=== PATIENT | male | born 1940 | race Caucasian/White ===

== ENCOUNTER → 2017-04-19 17:49 | Outpatient (CLI) | payer MEDICARE, OTHER, SELFPAY ==
--- NOTE | 2017-04-19 | IMM_PTH ---
PATIENT: Joaquin CAMERON LOC: EM U#:[id number] AGE/SX: 84/M ROOM: RE04/19/[address]: Dr. Yovanny Dempsey MD : 1940 BED: DIS: SPEC #: [id number] RECD: 04/21/17 10:50 STATUS: BROOKS RENorma #: [id number] JEAN: 04/19/17 00:[address]: Yovanny Dempsey DEPT: IMMUNOHISTOCHEMISTRY RECD BY: Mónica Nagel ENTERED: 04/21/17 10:51 SP TYPE: IMMUNO OTHR DR: Dr. Fredis Moon MD Tissues: E - PROSTATE LEFT Procedures: P40 (add) 34BE12 (initial) PHYSICIAN & INSTITUTION [place] [address] SPECIMEN INFORMATION: Tissue Source: E - Left prostate, mid, core biopsy Clinical Info: Elevated PSA Specimen Number: [id number] CPT code: 07459, 59441 METHODOLOGY: Deparaffinized sections of prefer/formalin-fixed tissue or PAP/DQ stained slides are incubated with monoclonal/polyclonal antibodies/oligonucleotide probes. Localization is made via biotin free immunoperoxidase method. Appropriate controls are performed and reacted as expected. Results on target cell population are indicated in the following table: RESULTS: ANTIBODY / CLONE RESULT Block E P40 (BC28) negative 34BE12 (34BE12) negative These tests were developed and their performance characteristics determined by [facility]. They may not have been cleared or approved by the U.S. Food and Drug Administration. The FDA has determined that such clearance or approval is not necessary. INTERPRETATION: E. Left prostate, mid, core biopsy: Adenocarcinoma. SJ:julia 04/21/17
--- NOTE | 2017-04-19 16:30 | PROSBIL_PTH ---
PATIENT: Joaquin CAMERON LOC: EM U#:[id number] AGE/SX: 84/M ROOM: RE04/19/[address]: Dr. Yovanny Dempsey MD : 1940 BED: DIS: SPEC #: [id number] RECD: 04/19/17 17:48 STATUS: BROOKS GIOVANNY #: [id number] JEAN: 04/19/17 16:[address]: Yovanny Dempsey DEPT: SURGICAL PATHOLOGY RECD BY: Theo Major ENTERED: 04/20/17 07:00 SP TYPE: PROST BX GILL DR: Dr. Fredis Moon MD Tissues: A - PROSTATE RIGHT B - PROSTATE RIGHT C - PROSTATE RIGHT D - PROSTATE LEFT E - PROSTATE LEFT F - PROSTATE LEFT Procedures: PROSTATE BX HEADER OPERATION: Prostate biopsy PRE-OP DIAGNOSIS: Elevated PSA TISSUE SUBMITTED: A - Right apex, B - Right mid, C - Right base, D - Left apex, E - Left mid, F - Left base MICROSCOPIC DIAGNOSIS A. Right prostate, apex, core biopsy: Scant minute fragment of prostatic stromal tissue, negative for malignancy. B. Right prostate, mid, core biopsy: Prostatic tissue, negative for malignancy. Focal mild chronic inflammation. C. Right prostate, base, core biopsy: Prostatic tissue, negative for malignancy.. D. Left prostate, apex, core biopsy: Predominantly prostatic stromal tissue, negative for malignancy. E. Left prostate, mid, core biopsy: Prostatic adenocarcinoma: Oxford grade: 3+4=7 Number of cores involved: 2 out of 2 Proportion of tissue involved: 20% Perineural invasion: Not identified. Greatest tumor length: 0.3 cm See comment. F. Left prostate, base, core biopsy: Prostatic adenocarcinoma: Oxford grade: 3+4=7 Number of cores involved: 1 out of 1 Proportion of tissue involved: ~60% Perineural invasion: Not identified. Greatest tumor length: 0.5 cm Focal atrophy. SJ:julia 04/21/17 COMMENT E. Immunohistochemistry ([id number]) supports the above diagnosis. MICROSCOPIC DESCRIPTION Slides are reviewed. GROSS DESCRIPTION A - Received is one container designated prostate, right apex. The specimen consists of a minute fragment of valdes soft tissue is noted measuring <0.1 cm in greatest dimension. The entire specimen is submitted in one cassette. It may not survive processing. B - Received is one container designated prostate, right mid. The specimen consists of one elongated fragment of light valdes-white soft tissue measuring 0.7 cm in length and 0.1 cm in diameter. The specimen is totally submitted in one cassette. C - Received is one container designated prostate, right base. The specimen consists of two elongated fragments of light valdes-white soft tissue measuring 0.7 and 1 cm in length and 0.1 cm in diameter. The specimen is totally submitted in one cassette. D - Received is one container designated prostate, left apex. The specimen consists of one elongated fragment of light valdes-white soft tissue measuring 0.2 cm in length and 0.1 cm in diameter. The specimen is totally submitted in one cassette. E - Received is one container designated prostate, left mid. The specimen consists of two elongated fragments of light valdes-white soft tissue each measuring 0.5 cm in length and 0.1 cm in diameter. The specimen is totally submitted in one cassette. F - Received is one container designated prostate, left base. The specimen consists of one elongated fragment of light valdes-white soft tissue measuring 1 cm in length and 0.1 cm in diameter. The specimen is totally submitted in one cassette. / SJ:rg 04/20/17 TC:0 CPT: G0146 ADDENDUM ADDENDUM ADDENDUM ADDENDUM ADDENDUM ADDENDUM ADDENDUM ADDENDUM 05/21/2017 12:17 ADDENDUM 05/21/2017 12:17 ADDENDUM 05/21/2017 12:17 ADDENDUM 05/21/2017 12:17 ADDENDUM 05/21/2017 12:17 An order for Oncotype testing was received from Dr. Dempsey. This necessitated case review, block and slide selection by pathologist at [facility]. Prostate Cancer Recurrence Score = 52 Results of the complete Oncotype testing ([employer] report) are viewable in EMR under: Reports - Pathology - Lab Pathology Report, Scanned.
== END ==
PROVIDERS: Family Provider Family Medicine Geriatric Medicine; PCP Family Medicine Geriatric Medicine; Visit Provider Urology
DX: R97.20 Elevated prostate specific antigen [PSA] (principal)
CPT/HCPCS: 88305; 88341; 88342; G0416

== ENCOUNTER → 2017-04-29 15:10 | Outpatient (CLI) | payer MEDICARE, OTHER, SELFPAY ==
[2017-04-29 17:26] LABS: Absolute Lymphocyte Count 1.58 X10^3/ul (0.83-4.51); Absolute Neutrophil Count 3.9 X10^3/uL (2.0-7.7); Basophil# 0.02 X10^3/uL; Basophil% 0.3 % (0-1); Eosinophil# 0.14 X10^3/uL; Eosinophils% 2.2 % (0-5); Hematocrit 43.1 % (40-54); Hemoglobin 14.1 g/dl (13.0-16.5); Lymphocyte # 1.58 X10^3/ul (4.0); Mean Corp Hgb Conc 32.7 g/gl (32-36); Mean Corpuscular Hgb 29.6 pg (27.0-32.0); Mean Corpuscular Volume 90.5 fL (80-94); Mean Platelet Vol. 9.8 fl (6.2-12.0); Monocyte# 0.69 X10^3/uL; Monocyte% 10.9 % (0-10); Neutrophil # 3.89 X10^3/uL (2.7-7.7); Neutrophil % 61.4 % (47-70); Platelet Count 173 K/mm3 (150-450); RBC Distribution Width CV 13.3 % (11.6-14.6); RBC Distribution Width SD 43.7 fl (35.1-43.9); Red Blood Count 4.76 M/mm3 (4.6-6.2); White Blood Count 6.3 K/mm3 (4.4-11.0)
[2017-04-29 17:44] LABS: POSITIVE COUNT NO; POSITIVE DIFFERENTIAL NO; POSITIVE MORPHOLOGY NO
[2017-04-29 18:08] LABS: AST(SGOT) 25 U/L (15-37); Alanine Aminotransfer ALT/SGPT 36 U/L (16-61); Albumin, Serum 3.6 g/dL (3.2-5.0); Alkaline Phosphatase 83 U/L (45-117); Anion Gap 8 (5-15); BUN 29 mg/dL (7-18); BUN/Creat Ratio 25.2 RATIO (10-20); Calcium,Total 8.7 mg/dL (8.5-10.1); Chloride 104 mmol/L (98-107); Cholesterol 105 mg/dL (200); Creatinine, Serum 1.15 mg/dL (0.70-1.30); EST Glomerular Filtration Rate 66 mL/min (>60); Est Glom Filt Rate - Afr Amer 80 mL/min (>60); Globulin 3.5 g/dL (2.2-4.2); Glucose 155 mg/dL (74-106); High Density Lipoprotein 47 mg/dL; Potassium 4.1 mmol/L (3.5-5.1); Protein, Total 7.1 g/dL (6.4-8.2); Sodium Level 141 mmol/L (136-145); Thyroid Stim Hormone (TSH) 1.95 uIU/mL (0.358-3.74); Triglycerides 206 mg/dL; Very Low Density Lipoprotein 41 mg/dL (5-40)
[2017-05-04 09:35] LABS: Hemoglobin A1c 7.5 % (4.2-6.3)
== END ==
PROVIDERS: Family Provider Family Medicine Geriatric Medicine; PCP Family Medicine Geriatric Medicine; Visit Provider Family Medicine Geriatric Medicine
DX: E11.9 Type 2 diabetes mellitus without complications (principal); E78.4 Other hyperlipidemia; I10 Essential (primary) hypertension
CPT/HCPCS: 36415; 80053; 80061; 83036; 84443; 85025

== ENCOUNTER → 2017-05-06 07:25 | Outpatient (CLI) | payer MEDICARE, OTHER, SELFPAY ==
--- NOTE | 2017-05-06 07:31 | NM_ITS ---
CLINICAL: 77-year-old male with 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 WHOLE BODY 99m Tc MDP RADIONUCLIDE BONE SCINTIGRAPHY COMPARISON: None available FINDINGS: Following the intravenous administration of 27.0 mCi of 99m Tc MDP, whole body bone images reveal: 1. There is an increase in radiopharmaceutical concentration identified in the acromioclavicular and sternoclavicular compartments of both shoulders, fourth-fifth lumbar vertebra posteriorly on the right, seventh thoracic vertebra posteriorly on the left, bilateral knee articulations, the left wrist. 2. The remaining skeletal structures are scintigraphically unremarkable with normal-appearing renal images and urinary bladder activity identified. Asymmetric increased uptake is demonstrated in the greater trochanteric aspect of the left proximal femur most consistent with trochanteric bursitis and/or periostitis. NM/Bone Scan Whole Body IMPRESSION: 1. The increase in radiopharmaceutical concentration identified in the bilateral shoulders, thoracic and lumbar spine, knees bilaterally and left wrist is most consistent with degenerative arthritis. 2. There is no definitive scintigraphic evidence of diffuse axial skeletal metastatic disease on the current examination. Electronically Signed: Theo Santiago DO at 10:52 EDT Tel , Service support ,
== END ==
PROVIDERS: Family Provider Family Medicine Geriatric Medicine; PCP Family Medicine Geriatric Medicine; Visit Provider Urology
DX: C61 Malignant neoplasm of prostate (principal)
CPT/HCPCS: 78306

== ENCOUNTER → 2017-05-11 06:58 | Outpatient (CLI) | payer MEDICARE, OTHER, SELFPAY ==
--- NOTE | 2017-05-11 07:00 | CT_ITS ---
STUDY: CT ABDOMEN AND PELVIS WITH CONTRAST REASON FOR EXAM: Male, 77 years old. New diagnosis of prostate cancer. RADIATION DOSAGE (If Supplied By Facility): CTDIvol = ( 15.42 ) mGy, DLP = ( 879.12 ) mGycm TECHNIQUE: Transaxial images were obtained from the dome of the diaphragm to the symphysis pubis without oral contrast. 100 ml of Isovue 300 contrast was administered. Sagittal and coronal images were reconstructed. Individualized dose optimization techniques were used for this CT. COMPARISON: None. FINDINGS: The visualized lung bases are unremarkable. Coronary artery calcification. Normal liver. The patient is status post cholecystectomy. Normal spleen. Normal pancreas. Normal bilateral adrenal glands. 1.4 cm cyst in the upper pole of the right kidney. Focal calcification in the lateral upper pole of the left kidney. There is a small hiatal hernia. Normal small intestine. There are scattered colonic diverticula consistent with diverticulosis. The appendix is visualized and appears normal. There is diffuse atherosclerotic calcification of the abdominal aorta, without a demonstrated aneurysm. Normal inferior vena cava. There is borderline retroperitoneal lymphadenopathy with enlarged nodes no greater than 10mm in the short axis diameter. Normal urinary bladder. The prostate measures 3.6 cm x 5 cm. This causes indentation at the bladder base. Central prostatic calcifications. This also evidence of calcification of the right seminal vesicle. Normal abdominal wall. There are diffuse degenerative changes of the visualized lumbar spine. CT/Abdomen/Pelvis W IV Cont ONLY IMPRESSION: Right renal cyst. Focal calcification the upper pole of the left kidney. Mild enlargement of the prostate gland. Electronically Signed: Fareed Beckham MD at 10:02 EDT Tel [phone], Service support ,
--- NOTE | 2017-05-11 11:24 | TISS_PTH ---
PATIENT: Joaquin CAMERON LOC: UT U#:[id number] AGE/SX: 84/M ROOM: RE05/11/[address]: Dr. Yovanny Dempsey MD : 1940 BED: DIS: SPEC #: [id number] RECD: 05/11/17 15:48 STATUS: BROOKS RENorma #: [id number] JEAN: 05/11/17 11:[address]: Fredis Moon Chi DEPT: SURGICAL PATHOLOGY RECD BY: Temi Montoya ENTERED: 05/12/17 11:09 SP TYPE: Tissue Bx GILL DR: Dr. Yovanny Dempsey MD Tissues: Skin of forehead Procedures: Surgery Specimen Level IV Comments: @ Ordering doctor for SUIV edited from to @ by ADEN at 05/13/17 0831 @ Submitting doctor edited from to @ by ADEN at 05/13/17 0831 HEADER OPERATION: Not noted PRE-OP DIAGNOSIS: L81.9 TISSUE SUBMITTED: Forehead MICROSCOPIC DIAGNOSIS Forehead lesion, shave biopsy: Seborrheic keratosis. Actinic keratosis and solar elastosis. SJ:julia 05/13/17 MICROSCOPIC DESCRIPTION Slides are reviewed. GROSS DESCRIPTION Received is one container labeled with the patient's name and not further designated. The specimen consists of a light valdes shaved biopsy of skin measuring 0.7 x 0.5 x 0.1 cm. The specimen is inked, bisected and totally submitted in one cassette. / AM:julia 05/12/17 TC:1 CPT: 82546
== END ==
PROVIDERS: Family Provider Family Medicine Geriatric Medicine; PCP Family Medicine Geriatric Medicine; Visit Provider Urology
DX: C61 Malignant neoplasm of prostate (principal); E11.9 Type 2 diabetes mellitus without complications; L82.1 Other seborrheic keratosis; L57.0 Actinic keratosis
CPT/HCPCS: 74177; 88305; Q9967

== ENCOUNTER → 2017-05-17 12:06 | Outpatient (CLI) | payer MEDICARE, OTHER, SELFPAY ==
[2017-05-21 12:08] LABS: Lyme IgG P18 Ab Absent (.); Lyme IgG P23 Ab Absent (.); Lyme IgG P28 Ab Absent (.); Lyme IgG P30 Ab Absent (.); Lyme IgG P39 Ab Absent (.); Lyme IgG P41 Ab Absent (.); Lyme IgG P45 Ab Absent (.); Lyme IgG P58 Ab Absent (.); Lyme IgG P66 Ab Absent (.); Lyme IgG P93 Ab Absent (.); Lyme IgM P23 Ab Absent (.); Lyme IgM P39 Ab Absent (.); Lyme IgM P41 Ab Absent (.)
[2017-05-21 13:00] LABS: Lyme IgG WB Interpretation Negative (.); Lyme IgM WB Interpretation Negative (.)
== END ==
PROVIDERS: Family Provider Family Medicine Geriatric Medicine; PCP Family Medicine Geriatric Medicine; Visit Provider Family Medicine Geriatric Medicine
DX: A69.23 Arthritis due to Lyme disease (principal)
CPT/HCPCS: 36415; 86617

== ENCOUNTER 2017-07-14 05:47 | Inpatient (IN) | payer MEDICARE, OTHER, SELFPAY ==
[2017-07-01 14:50] VITALS: BP 127/58; PULSE 59; RESP 16; TEMP 36.3; O2SAT 96; BMI 28.8
--- NOTE | 2017-07-01 14:59 | SDCEKG_ITS ---
Test Reason : Blood Pressure : / mmHG Vent. Rate : 056 BPM Atrial Rate : 056 BPM P-R Int : 194 ms QRS Dur : 102 ms QT Int : 420 ms P-R-T Axes : -04 -31 017 degrees QTc Int : 405 ms Sinus bradycardia Left axis deviation Septal infarct , age undetermined Abnormal ECG Confirmed by NORMAN SCHMITT, GRICELDA ([id number]), editor news RAO GIL ([id number]) on 07/02/2017 1:50:00 PM Referred By: Yovanny Dempsey Confirmed By:GRICELDA AUSTIN MD
[2017-07-01 15:42] LABS: PSA,Total- Diagnostic 2.71 ng/mL (0.0-4.0)
[2017-07-01 15:54] LABS: International Normalized Ratio 1.1; Partial Thromboplast Time 33.2 Seconds (24.1-36.2)
[2017-07-14] VITALS (12 sets, daily range): BP systolic 98–171; BP diastolic 51–82; PULSE 67–103; RESP 16–18; TEMP 36.1–37; O2SAT 91–99; BMI 28.8
--- NOTE | 2017-07-14 | PROST_PTH ---
PATIENT: Joaquin CAMERON LOC: MS2 U#:[id number] AGE/SX: 77/M [place] [facility] [id number] RE07/14/[address]: Dr. Yovanny Dempsey MD : 1940 BED: 1 DIS: 07/15/2017 SPEC #: [id number] RECD: 07/14/17 15:37 STATUS: BROOKS RENorma #: [id number] JEAN: 07/14/17 00:[address]: Yovanny Dempsey DEPT: SURGICAL PATHOLOGY RECD BY: Damián Mcdonald ENTERED: 07/15/17 08:12 SP TYPE: PROSTATE OTHR DR: Dr. Fredis Moon MD Tissues: A - Prostate, NOS B - Omentum, NOS Procedures: Surgery Specimen Level IV Surgery Specimen Level HEADER OPERATION: Laparoscopic robotic assisted radical prostatectomy PRE-OP DIAGNOSIS: Prostate cancer, elevated PSA TISSUE SUBMITTED: A ? Prostate, B ? Fat over prostate MICROSCOPIC DIAGNOSIS A. Prostate, radical prostatectomy: Prostatic adenocarcinoma. See cancer summary below. B. Fat over prostate: Mature adipose tissue, negative for carcinoma. PROSTATE CANCER (RADICAL) SUMMARY: Procedure ? radical prostatectomy Prostate size ? 4.5 cm transversely, 4 cm anterior-posteriorly and 4 cm craniocaudally Prostate weight ? 52 gm Lymph node sampling ? no lymph nodes present Histologic type ? adenocarcinoma (acinar) Histologic grade (Atwood Pattern): Primary pattern ? grade 4 Secondary pattern ? grade 3 Tertiary pattern ? not applicable Total Atwood score - 7 Tumor Quantitation: Proportion (%) of prostate involved by tumor - ~10-15% Extraprostatic extension ? not identified Seminal vesicle invasion ? not identified Margins ? apical margin focally involved by tumor, a minute focus (right lobe) Treatment effect on carcinoma ? not identified Lymph-Vascular invasion - not identified Perineural invasion ? present, focal Regional lymph nodes ? no nodes submitted or found Distant metastasis ? not applicable Additional pathologic findings ? chronic inflammation - Benign prostatic hyperplasia. - Right seminal vesicle shows focal calcification and left seminal vesicle with focal cystic changes. Ancillary studies ? See IHC ([id number]) report. PATHOLOGIC STAGE: pT2c pNx Mx The above summary is in compliance with [employer] (CAP) Cancer Protocols Checklist and [place] Joint Committee on Cancer (AJCC), Staging Manual, 8th Ed. SJ:rg 07/20/17 COMMENT A. The tumor in the right lobe is present in blocks #3 and 7, in the apical portion of the prostate and measures 0.6 x 0.2 cm in greatest dimension (measured microscopically). The tumor in the left lobe is present in blocks #8, 10, 12, 14 and 16 and measures 1.2 x 1 cm in greatest dimension and involves apical, mid portion and basal portion of the prostate. Immunohistochemistry ([id number]) supports the diagnosis of a minute focus of adenocarcinoma in the apical margin of the prostate. Please make reference to previous specimen ([id number]), left prostate, mid and left prostate, base with diagnosis of prostatic adenocarcinoma. Case has been reviewed in consultation with Dr. Rasheed who concurs with the above diagnosis. IDC:AM MICROSCOPIC DESCRIPTION Slides are reviewed. GROSS DESCRIPTION A - Received in fixative is one container labeled with the patient's name and designated prostate. The specimen consists of a radical prostatectomy specimen consisting of prostate and attached bilateral seminal vesicles and vas deferens. The prostate and attached seminal vesicles weigh 52 gm. The prostate measures 4.5 cm transversely, 4 cm anteroposteriorly and 4 cm craniocaudally. The right seminal vesicle measures 3 x 2 x 1 cm and right vas deferens measures 3.5 cm in length and 0.5 cm in diameter. The left seminal vesicle measures 3 x 1.5 x 1.5 cm and left vas deferens measures 3 cm in length and 0.5 cm in diameter. The prostate is inked as follows: anterior surface ? yellow, posterior surface ? black, right lateral surface ? blue, left lateral surface ? green. The seminal vesicles and vas deferens are inked as follows: posterior surface, right and left seminal vesicles and vas deferens ? black, anterior surface, right seminal vesicle and vas deferens ? blue, anterior surface, left seminal vesicle and vas deferens ? green. Sections of the prostate do not reveal any obvious mass lesion. Core Extruder sections are submitted in 18 cassettes as follows: 1 - right seminal vesicle and vas deferens, 2 ? left seminal vesicle and vas deferens, 3 ? apical (urethral) margin, enface, 4 & 5 ? bladder base margin, enface, 6-10 ? apical portion of prostate, 1114 ? middle portion of prostate, 15-18 ? basal portion of the prostate (cassettes 17 & 18 contain the most basal portion of the prostate. Sections will be submitted after infusion cycle. B - Received in fixative is one container labeled with the patient's name and designated fat over prostate. The specimen consists of a piece of yellow adipose tissue measuring 9 x 2 x 0.5 cm. No mass lesion is identified. Core Extruder sections are submitted in one cassette. / SJ:julia 07/15/17 TC:0 CPT: 69921, 79438
--- NOTE | 2017-07-14 | IMM_PTH ---
PATIENT: Joaquin CAMERON LOC: MS2 U#:[id number] AGE/SX: 77/M ROOM: [facility] [id number] RE07/14/[address]: Dr. Yovanny Dempsey MD : 1940 BED: 1 DIS: 07/15/2017 SPEC #: [id number] RECD: 07/20/17 11:26 STATUS: BROOKS REQ #: [id number] JEAN: 07/14/17 00:[address]: Yovanny Dempsey DEPT: IMMUNOHISTOCHEMISTRY RECD BY: Mónica Nagel ENTERED: 07/20/17 11:27 SP TYPE: IMMUNO OTHR DR: Dr. Fredis Moon MD Tissues: A - Prostate, NOS Procedures: CK8 (add) P40 (add) 34BE12 (initial) PHYSICIAN & INSTITUTION [place] [address] SPECIMEN INFORMATION: Tissue Source: A - Prostate Clinical Info: Prostate cancer, elevated PSA Specimen Number: [id number] CPT code: 55066, 93601 x2 METHODOLOGY: Deparaffinized sections of prefer/formalin-fixed tissue or PAP/DQ stained slides are incubated with monoclonal/polyclonal antibodies/oligonucleotide probes. Localization is made via biotin free immunoperoxidase method. Appropriate controls are performed and reacted as expected. Results on target cell population are indicated in the following table: RESULTS: ANTIBODY / CLONE RESULT Block A3 P40 (BC28) negative 34BE12 (34BE12) negative CK8 ([id number]) positive These tests were developed and their performance characteristics determined by [facility]. They may not have been cleared or approved by the U.S. Food and Drug Administration. The FDA has determined that such clearance or approval is not necessary. INTERPRETATION: A. Prostate, radical prostatectomy: A minute focus of adenocarcinoma (block A3). This case has been reviewed in consultation with Dr. Rasheed who concurs with the above diagnosis. SJ:julia 07/22/17
[2017-07-14 06:12] LABS: Bedside Glucose 98 mg/dL (70-110)
[2017-07-14] MEDS: Cefazolin 2 GM in 0.9% Normal Saline 100 ML IV (07:28)
[2017-07-14] MEDS: Ondansetron 4 MG/2 ML Vial (11:10)
[2017-07-14] MEDS: Bupivacaine Mpf 0.5% 30 ML VIAL (11:30)
--- NOTE | 2017-07-14 11:32 | PCM.OPRPT ---
Report of Operation Date of Procedure: 07/14/17 Pre-Operative Diagnosis: Prostate cancer Post-Operative Diagnosis: Same Surgery/Procedure Performed:: Robotic assisted laparoscopic radical prostatectomy, EMG monitoring of pelvic nerves and sphincter, suture suspension of the urethra to prevent incontinence. Description of Surgical Findings:: 77-year-old male with prostate cancer is elected to undergo rightRadical prostatectomy for curative intent. He was taken back to the operating room timeout was performed, he was given antibiotics, SCDs were in place, after anesthesia was induced and intubated we then placed him supine on the table in dorsal lithotomy position for an approach the prostate laparoscopically. He was in dorsal lithotomy position with the legs in stirrups we make sure that he was properly positioned and padded. We then made a incision in the umbilicus and advanced the Veress needle into the peritoneal cavity insufflated the peritoneal cavity with CO2 gas, and then placed my ports, and then docked the robot, then proceeded with the dissection, first I released the sigmoid colon off the lateral wall on the left side, I then was able to retract the sigmoid out of the pelvis, and then dissected out the vas deferens and the right side seminal vesicles and the right side vas deferens on the left side seminal vesicles in the left side, created a space between the rectum and the prostate, I then dropped the bladder created the space of Retzius put the bladder on traction and then inspected the lymph nodes in the left side and the right side there was no large lymph nodes I decided not to do lymph node dissection his risk of lymph node metastasis was fairly low. I then defatted the 5 top of the prostate this was sent off as a specimen, I then incised the endopelvic fascia and the right side endopelvic fascia and the left side and then dissected at the apex in the dorsal vein and then place a stitch in the dorsal vein came back to the bladder and prostate junction dissected between the bladder and prostate came on top of the urethra pulled the urethra and prostate up and then dissected posteriorly between the bladder and the prostate until I reached the seminal vesicles. Then the prostate was placed on lateral traction place clips on the pedicles and use electrocautery and the pedicles identified the neurovascular bundle freed this off the prostate laterally, I then used the EMG monitoring and check the lateral pelvic nerves and these were intact before and after the dissection of the prostate on the right side dissected all the way up to the apex and the right side and went to the left side identified the left pelvic and prostate pedicle and clip in the pedicle 1 of the clips broke off found the major clip and then found the broken pieces all these were taken out and then clipped the pedicle more and then released the neurovascular bundle on the left side all the way up to the apex transected to the dorsal vein complex then dissected all way around the urethra complex to the urethra and the prostate was then free put in Endo Catch bag I then performed suture suspension of the urethra to try to prevent incontinence using of 3-0 Vicryl and also of 30V lock and ran an anastomosis between the bladder neck and the urethra at the anastomosis was completed over a catheter then I re-tacked the bladder back up into the anterior abdominal wall. We then extracted the prostate through the umbilical trocar closed the 10 the variceal trocar with a tense 1012 Dong Waldron stitch patient's anesthetic was reversed we flushed the catheter and is taken back to the PACU in good condition. Type of Anesthesia:: General Drains: garcia - Admit VTE Documentation VTE Present on Admission: No VTE Mechan Device Prophylaxis: SCD's VTE Pharm Prophylaxis ordered?: No Reason prophylaxis not ordered:: Treatment Not Indicated
--- NOTE | 2017-07-14 11:50 | DCINST_ITS ---
Discharge Diet: Light diet - advance as tolerated Discharge Activity: May Not Drive, May not drive while taking narcotic pain medications., May Shower Lifting Restrictions: no lifting. Call your doctor if your incision/area has: Continuous Slow Oozing, Sudden Increased Bleeding, Increased Pain/ Swelling, Increased Redness, Foul Smelling Discharge, Swelling at the incision site Call your doctor if you observe: Fever of 101 or Higher, Inability to have a bowel movement, Uncontrolled pain Suture Line Care: Avoid Pulling/Pushing, Avoid Pinching/Bending Instructions: Discharge Instructions for Radical Prostatectomy Allergies/Adverse Reactions: Allergies adhesive tape Adverse Reaction (Verified 07/01/17 14:18) skin tears Medications to take at Discharge Calcium 600 + Vit D Tablet 600 mg PO BID 02/12/13 Metformin HCl 1,000 mg PO BID 02/12/13 Miconazole Nitrate 1 applicatio NOTE DAILY PRN 02/12/13 Metoprolol(XL)Succ 12.5 mg PO BID 02/13/13 Atorvastatin Calcium [Lipitor] 40 mg PO QHS 07/01/17 Cinnamon Bark [Cinnamon] 1,000 mg PO BID 07/01/17 Dulaglutide [Trulicity] 5 mg SQ SA 07/01/17 Empagliflozin [Jardiance] 25 mg PO DAILY 07/01/17 Famotidine [Pepcid] 40 mg PO DAILY PRN 07/01/17 Oxybutynin Chloride [Ditropan Xl] 5 mg PO DAILY 07/01/17 Sitagliptin Phosphate [Januvia] 100 mg PO DAILY 07/01/17 Ciprofloxacin [Cipro] 500 mg PO BID #20 tab 07/14/17 Docusate Sodium [Colace] 100 mg PO BID #20 cap 07/14/17 Hydrocodone/Acetaminophen [[place] 5-325 Tablet] 1 ea PO Q4H PRN PRN 5 Days #14 tab 07/14/17 The following prescriptions were given: Hydrocodone/Acetaminophen [[place] 5-325 Tablet] 1 ea PO Q4H PRN PRN 5 Days #14 tab PRN Reason: Pain Ciprofloxacin [Cipro] 500 mg PO BID #20 tab Docusate Sodium [Colace] 100 mg PO BID #20 cap Primary Care Physician: Fredis Moon Chi, MD [Primary Care Provider] - Please Follow Up With: Yovanny Dempsey MD When: July 22 at 11 am. Proposed Discharge Date: 07/15/17
[2017-07-14 12:56] LABS: Bedside Glucose 166 mg/dL (70-110)
[2017-07-14] MEDS: Ketorolac 15 MG/ML Vial IV ×2 (14:08→17:56)
[2017-07-14] MEDS: 0.9% Normal Saline 1,000 ML 150 ML IV ×2 (15:38→21:15)
--- NOTE | 2017-07-14 16:23 | CHAPLAIN ---
Type of Pastoral Visit _x__ Initial Visit ___ Follow-up Visit ___ On-call Visit ___ General Patient Visit ___ Spiritual Assessment ___ Family Conference ___ Bereavement ___ Rapid Response ___ Code Blue ___ Other (describe below) Pastoral Care Referral From _x__ Patient _x__ Family ___ Nurse ___ Physician ___ Brass Molder ___ Manager Operating ___ Other (describe below) Sacrament/Intervention _x__ Active listening ___ Anointing ___ Christian ___ Bereavement ___ Communion ___ Nancy exploration ___ ___ Life review _x__ Prayer ___ Reconciliation ___ Sacrament of Sick _x__ Supportive presence ___ Wedding ___ Other (describe below) Pastoral Comments patient and family requested visit from this agricultural equipment sales engineer who is known to them; pt was post op and wanted to talk and receive prayer for recovery;
[2017-07-14 17:10] LABS: Bedside Glucose 202 mg/dL (70-110)
[2017-07-14] MEDS: Calcium Carb/Vitamin D 1 TABLET Tablet PO (17:56)
[2017-07-14] MEDS: metFORMIN HCl 1,000 MG Tablet 1000 MG PO (17:56)
[2017-07-14] MEDS: Metoprolol(XL)Succ 25 MG Tablet 12.5 MG PO (21:14)
[2017-07-14] MEDS: Docusate Sodium 100 MG Capsule 200 MG PO (21:14)
[2017-07-14] MEDS: Ciprofloxacin 500 MG Tablet PO (21:15)
[2017-07-14] MEDS: Atorvastatin Calcium 40 MG Tablet PO (21:15)
[2017-07-15] MEDS: Ketorolac 15 MG/ML Vial IV ×3 (00:50→11:30)
[2017-07-15 03:00] VITALS: BP 109/53; PULSE 70; RESP 16; TEMP 36.6; O2SAT 99
[2017-07-15] MEDS: 0.9% Normal Saline 1,000 ML 150 ML IV (03:58)
[2017-07-15 06:17] LABS: Hematocrit 29.5 % (40-54); Hemoglobin 9.8 g/dl (13.0-16.5); Mean Corp Hgb Conc 33.2 g/gl (32-36); Mean Corpuscular Hgb 29.8 pg (27.0-32.0); Mean Corpuscular Volume 89.7 fL (80-94); Mean Platelet Vol. 9.2 fl (6.2-12.0); Platelet Count 180 K/mm3 (150-450); RBC Distribution Width CV 13.7 % (11.6-14.6); RBC Distribution Width SD 43.2 fl (35.1-43.9); Red Blood Count 3.29 M/mm3 (4.6-6.2); White Blood Count 7.6 K/mm3 (4.4-11.0)
[2017-07-15 06:18] LABS: Scan Indicated on CBC? Y/N NO
[2017-07-15 06:36] LABS: Anion Gap 9 (5-15); BUN 33 mg/dL (7-18); BUN/Creat Ratio 27.3 RATIO (10-20); Calcium,Total 7.3 mg/dL (8.5-10.1); Chloride 107 mmol/L (98-107); Creatinine, Serum 1.21 mg/dL (0.70-1.30); EST Glomerular Filtration Rate 62 mL/min (>60); Est Glom Filt Rate - Afr Amer 75 mL/min (>60); Estimated Creatinine Clearance 49.32 ml/min; Glucose 144 mg/dL (74-106); Sodium Level 140 mmol/L (136-145)
--- NOTE | 2017-07-15 07:29 | PCM.PROGNOTE ---
Subjective: doing well jose reg diet pain under control abd soft benign urine clear. - Physical Exam General: Alert, Oriented x3, Cooperative HEENT: Atraumatic, PERRLA, EOMI, Normocephalic Neck: Supple, No JVD, Negative Carotid Bruits Lungs: Clear to auscultation, Normal air movement Cardiovascular: Regular rate, No murmurs Abdomen: Bowel Sounds Present, Soft, Non Tender Extremities: No edema, Capillary Refill Less than 3 Seconds Skin: No rashes, No breakdown Musculoskeletal: No Tenderness to Palpation of Joints or Extremities Neurological: Cranial nerves II-XII grossly intact Psych/Mental Status: Normal Affect, Appropriate Vital Signs Temp Pulse Resp BP Pulse Ox 98 F 70 16 109/53 L 99 07/15/17 03:00 07/15/17 03:00 07/15/17 03:00 07/15/17 03:00 07/15/17 03:00 Oxygen Delivery Method CPAP Weight: 83.6 kg Body Mass Index (BMI) 28.8 Finger Stick Blood Glucose 166 Intake and Output for Last 24 Hours 07/13/17 07/14/17 07/15/17 23:59 23:59 23:59 Intake Total 3506 / 3506 3712 / 3712 Output Total 1000 / 1000 1230 / 1230 Balance 2506 / 2506 2482 / 2482 Laboratory Tests Past 24 Hrs 07/15/17 07/15/17 05:42 05:42 WBC 7.6 RBC 3.29 L Hgb 9.8 L Hct 29.5 L MCV 89.7 MCH 29.8 MCHC 33.2 RDW 13.7 RDW Differential 43.2 Plt Count 180 MPV 9.2 Sodium 140 Potassium 4.0 Chloride 107 Carbon Dioxide 24.0 Anion Gap 9 BUN 33 H Creatinine 1.21 Estim Creat Clear Calc 49.32 Est GFR (MDRD) Af Amer 75 Est GFR (MDRD) Non-Af 62 BUN/Creatinine Ratio 27.3 H Glucose 144 H Calcium 7.3 L POC Glucose 07/14/17 07/14/17 17:07 12:47 POC Glucose 202 H 166 H Medical Necessity - Tobacco Use Smoking Status: Former smoker Tobacco Use: Cigarettes Assessment/Plan s/p robotic prostatectomy doing well home with garcia today follow up in 1 week. leg bag training etc d/c instructions.
[2017-07-15 08:00] VITALS: BP 131/56; PULSE 64; RESP 16; TEMP 36.4; O2SAT 97
[2017-07-15] MEDS: Calcium Carb/Vitamin D 1 TABLET Tablet PO (08:08)
[2017-07-15] MEDS: metFORMIN HCl 1,000 MG Tablet 1000 MG PO (08:08)
[2017-07-15] MEDS: Ciprofloxacin 500 MG Tablet PO (08:09)
[2017-07-15] MEDS: Docusate Sodium 100 MG Capsule 200 MG PO (08:10)
[2017-07-15 08:11] VITALS: BP 131/56; PULSE 64
[2017-07-15] MEDS: Tolterodine Tartrate 2 MG CAP.SA PO (08:11)
[2017-07-15] MEDS: Metoprolol(XL)Succ 25 MG Tablet 12.5 MG PO (08:11)
[2017-07-15] MEDS: Empagliflozin 25 MG Tablet PO (08:14)
[2017-07-15] MEDS: HYDROcodone Bitartrate/Apap 5/325 Tablet PO ×2 (08:19→08:53)
[2017-07-15 08:30] LABS: Bedside Glucose 150 mg/dL (70-110)
[2017-07-15 12:00] VITALS: BP 131/56; PULSE 64; RESP 16; TEMP 36.4; O2SAT 97
== END 2017-07-15 12:55 | disposition home or self-care (01) | DRG 708 ==
LOC: ACINP 05:48 → MS2 07:40
PROVIDERS: Anesthesiology; Admitting Provider Urology; Family Provider Family Medicine Geriatric Medicine; PCP Family Medicine Geriatric Medicine; Visit Provider Urology
PROC: 0VT04ZZ Resection of Prostate, Percutaneous Endoscopic Approach (ICD-10-PCS; CPT 55866; principal; 2017-07-14 07:10)
DX: C61 Malignant neoplasm of prostate (principal); R97.20 Elevated prostate specific antigen [PSA]; N40.1 Benign prostatic hyperplasia with lower urinary tract symptoms; E78.00 Pure hypercholesterolemia, unspecified; K21.9 Gastro-esophageal reflux disease without esophagitis; I48.91 Unspecified atrial fibrillation; E11.9 Type 2 diabetes mellitus without complications; Z87.891 Personal history of nicotine dependence; R32 Unspecified urinary incontinence
CPT/HCPCS: 36415; 80048; 82962; 84153; 85027; 85610; 85730; 88305; 88309; 88341; 88342; 93005; J7030; J7120; J2405; J3490

== ENCOUNTER → 2017-07-29 14:00 | Outpatient (CLI) | payer MEDICARE, OTHER, SELFPAY ==
--- NOTE | 2017-07-29 14:00 | DT_ITS ---
This patient was seen during an EMR downtime July 26, 2017 - August 02, 2017. This patient may have a combination of paper and electronic documentation or all paper documentation. All documentation is viewable within the e-chart portion of [employer] for each patient visit.
[2017-08-03 05:15] LABS: Iron 63 ug/dL (65-175); Iron Binding Capacity,Total 277 ug/dL (250-450); PERCENT IRON SATURATION 22.7 % (15.0-55.0)
[2017-08-03 05:40] LABS: Absolute Lymphocyte Count 1.36 X10^3/ul (0.83-4.51); Absolute Neutrophil Count 5.1 X10^3/uL (2.0-7.7); Basophil% 0.3 % (0-1); Eosinophils% 1.6 % (0-5); Hematocrit 36.7 % (40-54); Hemoglobin 11.8 g/dl (13.0-16.5); Lymphocyte # 1.36 X10^3/ul (4.0); Lymphocyte % 18.8 % (19-41); Mean Corp Hgb Conc 32.2 g/gl (32-36); Mean Corpuscular Hgb 29.3 pg (27.0-32.0); Mean Corpuscular Volume 91.1 fL (80-94); Mean Platelet Vol. 9.2 fl (6.2-12.0); Monocyte% 8.6 % (0-10); Neutrophil # 5.07 X10^3/uL (2.7-7.7); Neutrophil % 69.9 % (47-70); POSITIVE COUNT NO; POSITIVE DIFFERENTIAL NO; POSITIVE MORPHOLOGY NO; Platelet Count 245 K/mm3 (150-450); RBC Distribution Width SD 49.8 fl (35.1-43.9); Red Blood Count 4.03 M/mm3 (4.6-6.2); White Blood Count 7.2 K/mm3 (4.4-11.0)
[2017-08-03 05:41] LABS: Basophil# 0.02 X10^3/uL; Eosinophil# 0.13 X10^3/uL; Monocyte# 0.62 X10^3/uL
== END ==
PROVIDERS: Family Provider Family Medicine Geriatric Medicine; PCP Family Medicine Geriatric Medicine; Visit Provider Family Medicine Geriatric Medicine
DX: D64.9 Anemia, unspecified (principal)
CPT/HCPCS: 36415; 83540; 83550; 85025

== ENCOUNTER → 2017-08-09 14:34 | Outpatient (CLI) | payer MEDICARE, OTHER, SELFPAY ==
[2017-08-09 17:26] LABS: Absolute Lymphocyte Count 0.76 X10^3/ul (0.83-4.51); Absolute Neutrophil Count 6.3 X10^3/uL (2.0-7.7); Basophil# 0.01 X10^3/uL; Basophil% 0.1 % (0-1); Eosinophil# 0.29 X10^3/uL; Eosinophils% 3.5 % (0-5); Lymphocyte # 0.76 X10^3/ul (4.0); Lymphocyte % 9.2 % (19-41); Mean Corp Hgb Conc 32.5 g/gl (32-36); Mean Corpuscular Hgb 29.4 pg (27.0-32.0); Mean Corpuscular Volume 90.5 fL (80-94); Mean Platelet Vol. 9.9 fl (6.2-12.0); Monocyte# 0.88 X10^3/uL; Monocyte% 10.7 % (0-10); Neutrophil % 76.3 % (47-70); Platelet Count 230 K/mm3 (150-450); RBC Distribution Width CV 14.6 % (11.6-14.6); RBC Distribution Width SD 47.5 fl (35.1-43.9); Red Blood Count 4.42 M/mm3 (4.6-6.2); White Blood Count 8.3 K/mm3 (4.4-11.0)
[2017-08-09 17:30] LABS: POSITIVE COUNT NO; POSITIVE DIFFERENTIAL NO; POSITIVE MORPHOLOGY NO
[2017-08-09 17:42] LABS: AST(SGOT) 18 U/L (15-37); Alanine Aminotransfer ALT/SGPT 27 U/L (16-61); Albumin, Serum 3.4 g/dL (3.2-5.0); Alkaline Phosphatase 83 U/L (45-117); Anion Gap 8 (5-15); BUN 25 mg/dL (7-18); BUN/Creat Ratio 23.1 RATIO (10-20); Calcium,Total 8.6 mg/dL (8.5-10.1); Chloride 106 mmol/L (98-107); Creatinine, Serum 1.08 mg/dL (0.70-1.30); EST Glomerular Filtration Rate 71 mL/min (>60); Est Glom Filt Rate - Afr Amer 86 mL/min (>60); Globulin 3.5 g/dL (2.2-4.2); Glucose 242 mg/dL (74-106); Potassium 3.9 mmol/L (3.5-5.1); Protein, Total 6.9 g/dL (6.4-8.2); Sodium Level 137 mmol/L (136-145); Thyroid Stim Hormone (TSH) 0.61 uIU/mL (0.358-3.74); Vitamin D,25 Hydroxy 38.3 ng/mL (29.95-100.01)
== END ==
PROVIDERS: Family Provider Family Medicine Geriatric Medicine; PCP Family Medicine Geriatric Medicine; Visit Provider Family Medicine Geriatric Medicine
DX: E11.9 Type 2 diabetes mellitus without complications (principal); E55.9 Vitamin D deficiency, unspecified; I10 Essential (primary) hypertension
CPT/HCPCS: 36415; 80053; 82306; 84443; 85025

== ENCOUNTER → 2017-08-20 11:34 | Outpatient (CLI) | payer MEDICARE, OTHER, SELFPAY ==
[2017-08-20 12:59] LABS: PSA,Total- Diagnostic < 0.01 ng/mL (0.0-4.0)
== END ==
PROVIDERS: Family Provider Family Medicine Geriatric Medicine; PCP Family Medicine Geriatric Medicine; Visit Provider Urology
DX: C61 Malignant neoplasm of prostate (principal)
CPT/HCPCS: 36415; 84153

== ENCOUNTER → 2017-11-04 14:45 | Outpatient (CLI) | payer MEDICARE, OTHER, SELFPAY ==
[2017-11-04 17:01] LABS: PSA,Total- Diagnostic < 0.01 ng/mL (0.0-4.0)
== END ==
PROVIDERS: Family Provider Family Medicine Geriatric Medicine; PCP Family Medicine Geriatric Medicine; Visit Provider Family Medicine Geriatric Medicine
DX: C61 Malignant neoplasm of prostate (principal)
CPT/HCPCS: 36415; 84153

== ENCOUNTER 2018-01-08 08:51 | Emergency (ER) | payer MEDICARE, OTHER, SELFPAY ==
[2018-01-08 08:52] VITALS: BP 136/64; PULSE 63; RESP 16; TEMP 36.3; O2SAT 98; BMI 30.5
--- NOTE | 2018-01-08 09:13 | ED.VISSUMM ---
- ER Visit Summary Date of Service: 01/08/18 Chief Complaint: [] Fall left hip injury 5 days ago History of Present Illness: The patient is a 77 M [] of diabetes neuropathy bilateral foot drop wears braces history of prostate cancer surgery. All of his health conditions have been stable indicates he has chronic instability to his gait related to the diabetes and neuropathy. He indicates on he fell landing directly in his left hip he had persistent pain there he comes in for evaluation. He indicates the pain is improved when he raised still worse when he tries to walk or move he has no history of hip injury or hip instability he has no other complaints his general health condition has been very stable, he scheduled for an MRI of his head next week related to further workup for the chronic instability to gait Physical Examination: [] 130/80 general, no distress resting comfortably HEENT is generally unremarkable The neck is supple no adenopathy Cardiovascular, regular rate and rhythm Lungs, clear bilateral Abdomen, soft nontender Extremities, no clubbing cyanosis or edema, he has full range of motion of both lower extremities has been very mild pain with movement of his hip there is no shortening or rotation, his lumbar back T-spine back are nontender neurologically he is awake alert moving all 4 he does wear braces around his ankles for the instability and the foot drop he states those are all stable and unchanged Neurologic, awake alert answering questions appropriately moving all 4 extremities, completely normal per patient at baseline Test Results: [] Emergency Department Course and Treatment: [] Not wish to have any for the pain x-rays are obtained Per radiology show severe DJD bilaterally see those reports nothing no fracture noted, explained all the above to the patient this time he does have walking devices that he can use he does not wish to have anything for pain, I will provide him [place] 4 tablets to use at bedtime he is referred to [facility] and to follow-up and return for change in symptoms Treatment Plan: [] Disposition: [] Home stable Impression: [] Fall left hip pain, DJD both hips This note was generated with [employer] dictation software. It may contain incorrect words, spelling, and punctuation that were not noted in review of the chart prior to signing ED Disposition - Plan for ED Patient: Chief Complaint: Lower Extremity Injury Referrals: Fredis Moon Chi, MD [Primary Care Provider] -
--- NOTE | 2018-01-08 09:15 | RAD_ITS ---
STUDY: X-RAY - LEFT HIP REASON FOR EXAM: Male, 77 years old. Continued left hip pain after fall 4 days ago. TECHNIQUE: 3 views of the hip. COMPARISON: Prior comparison studies are not available for review at this time. FINDINGS: There are osteoarthritic changes of the femoral head with marginal osteophyte formation. There is large osteoarthritic spur formation of the acetabular rim. Normal hip joint. There are enthesophytes arising from bilateral anterior superior iliac crests. There are degenerative changes of the right hip. There are enthesophytes at the ischial tuberosities. Normal visualized superior and inferior pubic rami and ischial tuberosities. There are pelvic calcifications. RAD/HIP, UNI W/ Pelvis 2-3 Views IMPRESSION: 1. 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 2. Extensive bilateral enthesopathy. Electronically Signed: Ariella Serrano MD at 9:48 EST , Service support ,
--- NOTE | 2018-01-08 10:02 | DCINST.ED_ITS ---
ED Disposition - Plan for ED Patient: Chief Complaint: Lower Extremity Injury Instructions: ED Sprain Hip Prescriptions: Hydrocodone Bitart/Apap 5-325 [[place] 5MG-325MG] 1 tab PO QHS 2 Days #7 tab Referrals: Fredis Moon Chi, MD [Primary Care Provider] -
[2018-01-08 10:20] VITALS: BP 118/74; PULSE 61; RESP 15; O2SAT 98
== END 2018-01-08 10:21 | disposition home or self-care (01) ==
PROVIDERS: Emergency Provider Emergency Medicine; Family Provider Family Medicine Geriatric Medicine; PCP Family Medicine Geriatric Medicine
DX: S79.912A Unspecified injury of left hip, initial encounter (principal); W19.XXXA Unspecified fall, initial encounter; Y93.9 Activity, unspecified; M16.0 Bilateral primary osteoarthritis of hip; E11.40 Type 2 diabetes mellitus with diabetic neuropathy, unspecified; M21.372 Foot drop, left foot; M21.371 Foot drop, right foot; R29.6 Repeated falls; Z85.46 Personal history of malignant neoplasm of prostate; Z79.84 Long term (current) use of oral hypoglycemic drugs; Z79.899 Other long term (current) drug therapy
CPT/HCPCS: 73502; 99282

== ENCOUNTER → 2018-01-11 12:51 | Outpatient (CLI) | payer MEDICARE, OTHER, SELFPAY ==
[2018-01-08 08:52] VITALS: BMI 30.5
--- NOTE | 2018-01-11 12:58 | MRI_ITS ---
STUDY: MRI BRAIN WITH AND WITHOUT CONTRAST REASON FOR EXAM: Male, 77 years old. Ataxia and tinnitus TECHNIQUE: Standardized multiplanar fat and water weighted pulse sequences were obtained. 8 ml of Gadavist contrast material was administered intravenously for the contrast portion of the examination. COMPARISON: February 11, 2013 FINDINGS: There is prominence of the ventricles with respect to cortical sulci raising question of communicating hydrocephalus or NPH.. Normal bilateral basal ganglia. Normal thalami. There is no extra-axial fluid accumulation. Normal flow voids within the major intracranial circulation suggesting patency by spin echo criteria. Normal venous enhancement. There is no enhancing intra-axial or extra-axial abnormality. Normal sella turcica, pituitary gland, infundibular stalk, optic chiasm and hypothalamus. Normal tectal plate and pineal gland. Normal midbrain, tomas and medulla. Normal cerebellum. Normal basal cisterns. Normal bilateral temporal bones. Normal bilateral internal auditory canals. Postsurgical changes of the orbits.. Normal visualized paranasal sinuses. Normal calvarium and skull base. Normal visualized soft tissue structures. Normal visualized upper cervical spine. 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 No evidence for acute infarct. No evidence for acoustic or vestibular schwannoma Electronically Signed: Barron Reynolds MD at 18:34 EST , Service support ,
[2018-01-11 13:35] LABS: CREATININE FINGERSTICK 1.1 mg/dL (0.70-1.30); EGFR FINGERSTICK > 60.0000 mL/min (>60)
== END ==
PROVIDERS: Family Provider Family Medicine Geriatric Medicine; PCP Family Medicine Geriatric Medicine; Referring Provider Otolaryngology Otolaryngology/Facial Plastic Surgery; Visit Provider Otolaryngology Otolaryngology/Facial Plastic Surgery
DX: R27.0 Ataxia, unspecified (principal)
CPT/HCPCS: 70553; A9585

== ENCOUNTER → 2018-02-03 15:26 | Outpatient (CLI) | payer MEDICARE, OTHER, SELFPAY ==
[2018-01-08 08:52] VITALS: BMI 30.5
[2018-02-03 16:21] LABS: Absolute Lymphocyte Count 1.35 X10^3/ul (0.83-4.51); Absolute Neutrophil Count 4.2 X10^3/uL (2.0-7.7); Basophil# 0.03 X10^3/uL; Basophil% 0.5 % (0-1); Eosinophil# 0.07 X10^3/uL; Eosinophils% 1.1 % (0-5); Hematocrit 41.1 % (40-54); Hemoglobin 13.4 g/dl (13.0-16.5); Lymphocyte # 1.35 X10^3/ul (4.0); Lymphocyte % 21.1 % (19-41); Mean Corp Hgb Conc 32.6 g/gl (32-36); Mean Corpuscular Hgb 28.6 pg (27.0-32.0); Mean Corpuscular Volume 87.8 fL (80-94); Mean Platelet Vol. 9.7 fl (6.2-12.0); Monocyte# 0.78 X10^3/uL; Monocyte% 12.2 % (0-10); Neutrophil # 4.15 X10^3/uL (2.7-7.7); Neutrophil % 64.9 % (47-70); Platelet Count 201 K/mm3 (150-450); RBC Distribution Width CV 14.6 % (11.6-14.6); RBC Distribution Width SD 46.3 fl (35.1-43.9); Red Blood Count 4.68 M/mm3 (4.6-6.2); White Blood Count 6.4 K/mm3 (4.4-11.0)
[2018-02-03 16:24] LABS: POSITIVE COUNT NO; POSITIVE DIFFERENTIAL NO; POSITIVE MORPHOLOGY NO
[2018-02-03 16:36] LABS: Hemoglobin A1c 8.3 % (4.2-6.3)
[2018-02-03 16:54] LABS: BUN 27 mg/dL (7-18); EST Glomerular Filtration Rate 52 mL/min (>60); Glucose 218 mg/dL (74-106)
[2018-02-03 16:55] LABS: AST(SGOT) 17 U/L (15-37); Alanine Aminotransfer ALT/SGPT 32 U/L (16-61); Albumin, Serum 3.5 g/dL (3.2-5.0); Alkaline Phosphatase 101 U/L (45-117); Anion Gap 9 (5-15); BUN/Creat Ratio 19.3 RATIO (10-20); Calcium,Total 8.8 mg/dL (8.5-10.1); Chloride 101 mmol/L (98-107); Cholesterol 108 mg/dL (200); Est Glom Filt Rate - Afr Amer 63 mL/min (>60); Globulin 3.6 g/dL (2.2-4.2); High Density Lipoprotein 42 mg/dL; Potassium 4.4 mmol/L (3.5-5.1); Protein, Total 7.1 g/dL (6.4-8.2); Sodium Level 140 mmol/L (136-145); Triglycerides 540 mg/dL
--- OUTSIDE RECORDS SUMMARY | 2018-03-22 12:54 | XMS RPT_ITS ---
:1940 Author Organization OHIP Support Name Relationship Address Phone CELLAR, RADHA Unavailable Unavailable + [place] [id number] CAMERON, OLIVE Unavailable [address] + [place] [address] R Unavailable Unavailable Unavailable CELLAR, RADHA Unavailable Unavailable + [place] [id number] CAMERON, OLIVE Unavailable [address] + [place] [address] R Unavailable Unavailable Unavailable CELLAR, RADHA Unavailable Unavailable + [place] [id number] CAMERON, OLIVE Unavailable [address] + [place] [address] R Unavailable Unavailable Unavailable CELLAR, RADHA Unavailable Unavailable + [place] [id number] CAMERON, OLIVE Unavailable [address] + [place] [address] R Unavailable Unavailable Unavailable CELLAR, RADHA Unavailable Unavailable + [place] [id number] CAMERON, OLIVE Unavailable [address] + [place] [address] R Unavailable Unavailable Unavailable CELLAR, RADHA Unavailable . + ., [place] . CAMERON, OLIVE Unavailable [address] + [place] [address] R Unavailable Unavailable Unavailable CAMERON, OLIVE Unavailable [address] + [place] [address] R Unavailable Unavailable Unavailable CAMERON, OLIVE Unavailable [address] + [place] [address] R Unavailable Unavailable Unavailable CAMERON, OLIVE Unavailable [address] + [place] [address] R Unavailable Unavailable Unavailable CAMERON, OLIVE Unavailable [address] [phone] [place] [address] R Unavailable Unavailable Unavailable CAMERON, OLIVE Unavailable [address] + [place] [address] R Unavailable Unavailable Unavailable CAMERON, OLIVE Unavailable [address] [phone] [place] [address] R Unavailable Unavailable Unavailable CAMERON, OLIVE Unavailable [address] + [place] [address] R Unavailable Unavailable Unavailable CAMERON, OLIVE Unavailable [address] [phone] [place] [address] R Unavailable Unavailable Unavailable CAMERON, OLIVE Unavailable [address] [phone] [place] [address] R Unavailable Unavailable Unavailable CAMERON, OLIVE Unavailable [address] [phone] [place] [address] R Unavailable Unavailable Unavailable CAMERON, OLIVE Unavailable [address] [phone] [place] [address] R Unavailable Unavailable Unavailable CAMERON, OLIVE Unavailable [address] [phone] [place] [address] R Unavailable Unavailable Unavailable Care Team Providers Name Role Phone DAVID LOOMIS Attending Unavailable VERA AKERS Referring Unavailable Red, Fredis Chi Attending Unavailable Red, Fredis Chi Primary Care Unavailable Red, Fredis Chi Attending Unavailable Red, Fredis Chi Referring Unavailable Red, Fredis Chi Primary Care Unavailable Yovanny Dempsey Consulting Unavailable KeYovanny Attending Unavailable Red, Fredis Chi Primary Care Unavailable Yovanny Dempsey Referring Unavailable Red, Ferdis Chi Attending Unavailable Red, Fredis Chi Primary Care Unavailable Yovanny Dempsey Attending Unavailable Red, Fredis Chi Primary Care Unavailable Yovanny Dempsey Referring Unavailable Yovanny Dempsey Attending Unavailable Yovanny Dempsey Referring Unavailable Red, Fredis Chi Primary Care Unavailable Yovanny Dempsey Attending Unavailable Red, Fredis Chi Primary Care Unavailable Yovanny Dempsey Referring Unavailable Red, Fredis Chi Attending Unavailable Red, Fredis Chi Primary Care Unavailable Yovanny Dempsey Admitting Unavailable KeYovanny weber Attending Unavailable KeYovanny Referring Unavailable Red, Fredis Chi Primary Care Unavailable Red, Fredis Chi Attending Unavailable Red, Fredis Chi Primary Care Unavailable Red, Fredis Chi Attending Unavailable Red, Fredis Chi Primary Care Unavailable Josias Austin Attending Unavailable West Pfeiffer Referring Unavailable Ke, Yovanny Kurtz Attending Unavailable Ke, Yovanny Kurtz Referring Unavailable Red, Fredis Chi Primary Care Unavailable Red, Fredis Chi Attending Unavailable Red, Fredis Chi Primary Care Unavailable Raven Lizarraga Attending Unavailable Josias Austin Attending Unavailable Red, Fredis Chi Referring Unavailable DaniiMamadouun Attending Unavailable Danii, Sandeep Referring Unavailable Red, Fredis Chi Primary Care Unavailable Red, Fredis Chi Primary Care Unavailable Jose Fay Attending Unavailable PROBLEMS PROBLEMS DATE TYPE CONDITION / CODE ATTENDING STATUS SOURCE 03/14/2018 Unknown R97.20 - Elevated KeYovanny weber Active [facility] prostate specific [facility] antigen [PSA] / Hospital R97.20(ICD-10) Repository 01/08/2018 Unknown R52 - Pain, Jwayyed, Active [facility] unspecified / [facility] R52(ICD-10) Hospital Repository 12/20/2017 Unknown 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 / I25.10(ICD-10) 12/20/2017 Unknown C61 - Malignant Red, Fredis Chi Active [facility] neoplasm of prostate Community / C61(ICD-10) Hospital Repository 08/09/2017 Unknown E11.9 - Type 2 Red, Fredis Chi Active [facility] diabetes mellitus Community without complications Hospital / E11.9(ICD-10) Repository 08/09/2017 Unknown I10 - Essential Red, Fredis Chi Active [facility] (primary) Community hypertension / Hospital I10(ICD-10) Repository 08/09/2017 Unknown E55.9 - Vitamin D Red, Fredis Chi Active [facility] deficiency, Community unspecified / Hospital E55.9(ICD-10) Repository 08/19/2017 Unknown D64.9 - Anemia, Red, Fredis Chi Active [facility] unspecified / Community D64.9(ICD-10) Hospital Repository 08/10/2017 Unknown R00.1 - Bradycardia, Moodispaw, Josias Active [facility] unspecified / Community R00.1(ICD-10) Hospital Repository 04/29/2017 Unknown E78.4 - Other Fredis Greenberg Chi Active [facility] hyperlipidemia / Community E78.4(ICD-10) Hospital Repository PROCEDURES PROCEDURES No Procedure Records FoundRESULTS RESULTS PSA,TOTAL- DIAGNOSTIC Collected: 03/14/2018 Status: F Source: [place] 11:[place] [facility] [place] CODE TESTS RESULT OUT OF RANGE REFERENCE UNITS LAB L501.9940 0.0-4.0 ng/mL PSA, Normal DIAGNOSTIC < 0.01 Result Comment: This test was performed using the TPSA assay method for the Fl[employer] chemistry system. Values obtained with different assay methods cannot be used interchangably. When changing PSA assays in the course of monitoring a patient, additional sequential testing should be carried out to confirm baseline values. Performed By: #### L501.9940 #### [facility] [address] [place], [address] CAROTID DUPLEX Observed: 03/10/2018 Status: F Source: [place] ULTRASOUND 11:20 AM [facility] [place] [facility] Cardiovascular Services [address] [place] [address] Carotid Duplex Ultrasound 03/09/18 1315 MR#: [id number] Acct: [id number] Name: FARHANA CAMERON Rep #: [id number] : 1940 77 From: Jey Freitas MD Attending Dr: Fredis Greenberg MD, Chi Status: REG CLI Ordering Dr: Fredis Greenberg MD Date: 03/09/18 Location: [facility] Sex: M C Admitted: Reason For Study: CAROTID ARTERY STENOSIS Rt. Velocities/BP Lt. Velocities/BP Prox CCA 152/27 cm/sec. Prox CCA 120/24 cm/sec. Mid CCA 131/24 cm/sec. Mid CCA 123/34 cm/sec. Dist CCA 94/20 cm/sec. Dist CCA 166/37 cm/sec. Prox ICA 120/25 cm/sec. Prox ICA 108/25 cm/sec. Mid ICA 112/24 cm/sec. Mid ICA 109/24 cm/sec. Dist ICA 85/27 cm/sec. Dist ICA 85/31 cm/sec. Rt. ICA/CCA = .8. Lt. ICA/CCA = .9. Prox ECA 140/30 cm/sec. Prox ECA 169/29 cm/sec. Rt. Vert. 32/11 cm/sec. Lt. Vert. 37/13 cm/sec. Right Extracranial There is heterogeneous, smooth atherosclerotic plaque noted in the right common carotid artery. There is heterogeneous, irregular atherosclerotic plaque noted in the right internal carotid artery. There is heterogeneous, irregular atherosclerotic plaque noted in the right external carotid artery. Antegrade flow is noted in the right vertebral artery. Left Extracranial There is heterogeneous, smooth atherosclerotic plaque noted in the left common carotid artery. There is heterogeneous, irregular atherosclerotic plaque noted in the left internal carotid artery. There is heterogeneous, irregular atherosclerotic plaque noted in the left external carotid artery. Antegrade flow is noted in the left vertebral artery. Procedure Carotid Duplex 13971. Exam performed in department. Interpretation Summary Mild (<50%) stenosis right extracranial internal carotid. Mild (<50%) stenosis left extracranial internal carotid. There is plaque in the distal left common carotid artery which appears to approach 50% stenosis by snow-scale imaging. Flow within the vertebral arteries is antegrade bilaterally. Ordering Physician: Fredis Greenberg Referring Physician: Fredis Greenberg Chi Performed By: Clarisse Delvalle, RDCS, RVT 03/10/18 1119 Date Jey Freitas MD CC: Fredis Greenberg MD Date Dictated: 03/09/18 1315 Date Transcribed: 03/10/18 111 Wrapper Cashier: Signed CBC-COMPLETE BLOOD CNT Collected: 03/09/2018 Status: F Source: [place] NO DIFF 12:41 PM [facility] [place] CODE TESTS RESULT OUT OF RANGE REFERENCE UNITS LAB L100.1000 4.4-11.0 K/mm3 Normal WBC 5.9 LAB L100.1200 4.6-6.2 M/mm3 Normal RBC 4.91 LAB L100.1300 13.0-16.5 g/dl Normal HGB 14.0 LAB L100.1400 40-54 % Normal HCT 42.9 LAB L100.1500 80-94 fL Normal MCV 87.4 LAB L100.1600 27.0-32.0 pg Normal MCH 28.5 LAB L100.1700 32-36 g/gl Normal MCHC 32.6 LAB L100.1810 11.6-14.6 % Normal RDW CV 13.8 LAB L100.1820 35.1-43.9 fl Normal RDW SD 43.9 LAB L100.1900 150-450 K/mm3 Normal PLT 164 LAB L100.2000 6.2-12.0 fl Normal MPV 9.4 Performed By: #### L100.0500 #### [facility] [place] [address], [address] BASIC METABOLIC Collected: 03/09/2018 Status: F Source: [place] PROFILE (BMP) 12:41 PM [facility] [place] CODE TESTS RESULT OUT OF RANGE REFERENCE UNITS LAB L501.0100 74-106 mg/dL High GLU 141 Result Comment: Fasting Glucose result greater than or equal to 126 mg/dL suggests DIABETES MELLITUS per A.D.A. criteria. Please note revised GLUCOSE reference range effective 2017. LAB L501.1000 7-18 mg/dL High BUN 27 LAB L501.1100 0.70-1.30 mg/dL Normal CREAT,SERUM 1.14 Result Comment: The validity of the calculated GFR AND GFRAA in patients over 70 years has not been determined. Clinical correlation is essential. LAB L501.1110 >60 mL/min Normal EST GFR 66 Result Comment: Non- GFR Calc LAB L501.1115 >60 mL/min Normal EST GFR - AA 80 Result Comment: GFR Calc LAB L501.1300 10-20 RATIO High BUN/CRE 23.7 LAB L501.2200 8.5-10.1 mg/dL CA Normal 9.1 LAB L501.5300 136-145 mmol/L NA Normal 136 LAB L501.5600 3.5-5.1 mmol/L K Normal 4.1 LAB L501.5900 98-107 mmol/L CL Normal 104 LAB L501.6100 21.0-32.0 mmol/L Normal CO2 24.0 LAB L501.6200 5-15 Normal GAP 8 Performed By: #### L500.2500 #### [facility] [address] [place], [address] TESTOSTERONE, SERUM TOTAL Collected: 03/09/2018 Status: F Source: [place] 12:41 PM [facility] [place] CODE TESTS RESULT OUT OF REFERENCE UNITS RANGE LAB L509.3000 ng/dL Testosterone Normal 227.03 Result Comment: NORMAL REFERENCE RANGES MALE AGE <50 123.06 - 813.86 ng/dL MALE AGE >50 89.98 - 780.10 ng/dL FEMALE PREMENOPAUSE AGE 21 - 60 9.01 - 47.94 ng/dL FEMALE POSTMENOPAUSE AGE 45 - 89 <7.00 - 45.62 ng/dL REFERENCE RANGE AND METHODOLOGY CHANGED 02/10/2017 Performed By: #### L509.3000 #### [facility] [address] [place], [address] CBC W/DIFF, AUTOMATED Collected: 02/03/2018 Status: F Source: [place] 3:28 PM [facility] [place] CODE TESTS RESULT OUT OF RANGE REFERENCE UNITS LAB L100.1000 4.4-11.0 K/mm3 Normal WBC 6.4 LAB L100.1200 4.6-6.2 M/mm3 Normal RBC 4.68 LAB L100.1300 13.0-16.5 g/dl Normal HGB 13.4 LAB L100.1400 40-54 % Normal HCT 41.1 LAB L100.1500 80-94 fL Normal MCV 87.8 LAB L100.1600 27.0-32.0 pg Normal MCH 28.6 LAB L100.1700 32-36 g/gl Normal MCHC 32.6 LAB L100.1810 11.6-14.6 % Normal RDW CV 14.6 LAB L100.1820 35.1-43.9 fl High RDW SD 46.3 LAB L100.1900 150-450 K/mm3 Normal PLT 201 LAB L100.2000 6.2-12.0 fl Normal MPV 9.7 LAB L100.2100 47-70 % Normal NEUT% 64.9 LAB L100.2200 19-41 % Normal LY% 21.1 LAB L100.2300 0-10 % High MONO% 12.2 LAB L100.2400 0-5 % Normal EO% 1.1 LAB L100.2500 0-1 % Normal BASO% 0.5 LAB L100.2550 0.0-0.9 % Normal IM GRAN % 0.200 Result Comment: IG% - Immature Granulocytes (promyelocytes, myelocytes and metamyelocytes) > 1% indicates that a LEFT SHIFT is Present. LAB L100.2620 2.0-7.7 X10 3/uL Normal Absolute Neut 4.2 LAB L100.2720 0.83-4.51 X10 3/ul Normal Absolute Lymph 1.35 Performed By: #### L100.0100 #### [facility] [address] [place], [place], [address] HEMOGLOBIN A1C Collected: 02/03/2018 Status: F Source: [place] 3:28 PM [facility] [place] TYPE CODE TESTS RESULT OUT OF RANGE REFERENCE UNITS LAB L501.9985 4.2-6.3 % High HGB A1C 8.3 Performed By: #### L501.9985 #### [facility] [address] [place], [address] COMPREHENSIVE METABOLIC Collected: 02/03/2018 Status: F Source: [facility] 3:28 PM [facility] [place] TYPE CODE TESTS RESULT OUT OF RANGE REFERENCE UNITS LAB L501.0100 74-106 mg/dL High GLU 218 Result Comment: Glucose result greater than or equal to 200 mg/dL suggests DIABETES MELLITUS per A.D.A. criteria. Please note revised GLUCOSE reference range effective 2017. LAB L501.1000 7-18 mg/dL High BUN 27 LAB L501.1100 0.70-1.30 mg/dL High CREAT,SERUM 1.40 Result Comment: The validity of the calculated GFR AND GFRAA in patients over 70 years has not been determined. Clinical correlation is essential. LAB L501.1110 >60 mL/min Low EST GFR 52 Result Comment: Non- GFR Calc LAB L501.1115 >60 mL/min Normal EST GFR - AA 63 Result Comment: GFR Calc LAB L501.1300 10-20 RATIO Normal BUN/CRE 19.3 LAB L501.1500 6.4-8.2 g/dL T Normal PROT 7.1 LAB L501.1800 3.2-5.0 g/dL Normal ALB 3.5 LAB L501.1950 2.2-4.2 g/dL Normal GLOB 3.6 LAB L501.2000 0.9-2.4 RATIO Normal A/G 1.0 LAB L501.2200 8.5-10.1 mg/dL CA Normal 8.8 LAB L501.4100 15-37 U/L Normal AST 17 LAB L501.4305 45-117 U/L Normal ALK P 101 LAB L501.4405 16-61 U/L Normal ALT 32 LAB L501.4600 0.20-1.00 mg/dL T Normal BILI 0.40 LAB L501.5300 136-145 mmol/L NA Normal 140 LAB L501.5600 3.5-5.1 mmol/L K Normal 4.4 LAB L501.5900 98-107 mmol/L CL Normal 101 LAB L501.6100 21.0-32.0 mmol/L Normal CO2 30.0 LAB L501.6200 5-15 Normal GAP 9 Performed By: #### L500.4050, L500.4100, L501.9520 #### [facility] [address] [place], [address] LIPID PROFILE Collected: 02/03/2018 Status: F Source: [place] 3:28 PM [facility] [place] TYPE CODE TESTS RESULT OUT OF RANGE REFERENCE UNITS LAB L501.4900 200 mg/dL Normal CHOL 108 Result Comment: <200 mg/dL Desirable 200-240 mg/dL Borderline >240 mg/dL High Risk LAB L501.5000 mg/dL High TRIG 540 Result Comment: The drugs N-Acetylcysteine and Metamizole may falsely depress this assay. TRIGLYCERIDE IS GREATER THAN 400 mg/dL. LDL RESULT IS INVALID AND WILL NOT BE REPORTED. Serum Triglycerides Reference Interval Normal <150 mg/dL Borderline high 150 - 199 mg/dL High 200 - 499 mg/dL Very High > or = 500 mg/dL LAB L501.6400 mg/dL Normal HDL 42 Result Comment: The drugs N-Acetylcysteine and Metamizole may falsely depress this assay. Reference Range HDL <40 mg/dL Low HDL Cholesterol HDL >or= 60 mg/dL High HDL Cholesterol LAB L501.6500 0-130 mg/dL Test Normal not performed LDL LAB L501.6600 5-40 mg/dL Test Normal not performed VLDL Performed By: #### L500.4050, L500.4100, L501.9520 #### [facility] [address] [facility] [place], [address] THYROID STIM HORMONE Collected: 02/03/2018 Status: F Source: [place] (TSH) 3:28 PM [facility] [place] TYPE CODE TESTS RESULT OUT OF RANGE REFERENCE UNITS LAB L501.9520 0.358-3.74 uIU/mL Normal TSH 1.90 Performed By: #### L500.4050, L500.4100, L501.9520 #### [facility] [address] [facility] [place], [address] CREATININE FINGERSTICK Collected: 01/11/2018 Status: F Source: [place] 1:18 PM [facility] [place] TYPE CODE TESTS RESULT OUT OF RANGE REFERENCE UNITS LAB L9100.0210 0.70-1.30 mg/dL Normal CREATININE WB 1.1 LAB L9100.0220 >60 mL/min EGFR WB Normal > 60.0000 Performed By: #### L9100.0200 #### [facility] Point of Care [address] [place] [address] BRAIN W/WO CONTRAST Observed: 01/11/2018 Status: F Source: [place] 12:58 PM [facility] [place] [facility] Imaging Services [address] [place] [address] Brain W/WO Contrast MR#: [id number] Acct: [id number] Name: FARHANA CAMERON Rep #: [id number] : 1940 M 77 From: Barron Reynolds MD PCP: Fredis Greenberg MD, Chi Status: REG CLI Study: Brain W/WO Contrast Date of Exam: 01/11/18 Exam# [id number] Ordering Dr: Sandeep Foy MD STUDY: MRI BRAIN WITH AND WITHOUT CONTRAST REASON FOR EXAM: Male, 77 years old. Ataxia and tinnitus TECHNIQUE: Standardized multiplanar fat and water weighted pulse sequences were obtained. 8 ml of Gadavist contrast material was administered intravenously for the contrast portion of the examination. COMPARISON: February 11, 2013 FINDINGS: There is prominence of the ventricles with respect to cortical sulci raising question of communicating hydrocephalus or NPH.. Normal bilateral basal ganglia. Normal thalami. There is no extra-axial fluid accumulation. Normal flow voids within the major intracranial circulation suggesting patency by spin echo criteria. Normal venous enhancement. There is no enhancing intra-axial or extra-axial abnormality. Normal sella turcica, pituitary gland, infundibular stalk, optic chiasm and hypothalamus. Normal tectal plate and pineal gland. Normal midbrain, tomas and medulla. Normal cerebellum. Normal basal cisterns. Normal bilateral temporal bones. Normal bilateral internal auditory canals. Postsurgical changes of the orbits.. Normal visualized paranasal sinuses. Normal calvarium and skull base. Normal visualized soft tissue structures. Normal visualized upper cervical spine. 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 No evidence for acute infarct. No evidence for acoustic or vestibular schwannoma Electronically Signed: Barron Reynolds MD at 18:34 EST , Service support , CC: Sandeep Foy MD; Fredis Greenberg MD Wrapper Cashier: Signed EMERGENCY DEPARTMENT Observed: 01/08/2018 Status: F Source: [place] SUMMARY 2:34 PM [facility] [place] [facility] Medical Records Department [address] [place] [address] Emergency Department Summary 01/08/18 0913 MR#: [id number] Acct: [id number] Name: FARHANA CAMERON Rep #: [id number] : 1940 77 From: Jose Fay MD PCP: Red SCHMITT,Fredis Schaefer Status: DEP ER - ER Visit Summary Date of Service: 01/08/18 Chief Complaint: [] Fall left hip injury 5 days ago History of Present Illness: The patient is a 77 M [] of diabetes neuropathy bilateral foot drop wears braces history of prostate cancer surgery. All of his health conditions have been stable indicates he has chronic instability to his gait related to the diabetes and neuropathy. He indicates on he fell landing directly in his left hip he had persistent pain there he comes in for evaluation. He indicates the pain is improved when he raised still worse when he tries to walk or move he has no history of hip injury or hip instability he has no other complaints his general health condition has been very stable, he scheduled for an MRI of his head next week related to further workup for the chronic instability to gait Physical Examination: [] 130/80 general, no distress resting comfortably HEENT is generally unremarkable The neck is supple no adenopathy Cardiovascular, regular rate and rhythm Lungs, clear bilateral Abdomen, soft nontender Extremities, no clubbing cyanosis or edema, he has full range of motion of both lower extremities has been very mild pain with movement of his hip there is no shortening or rotation, his lumbar back T-spine back are nontender neurologically he is awake alert moving all 4 he does wear braces around his ankles for the instability and the foot drop he states those are all stable and unchanged Neurologic, awake alert answering questions appropriately moving all 4 extremities, completely normal per patient at baseline Test Results: [] Emergency Department Course and Treatment: [] Not wish to have any for the pain x-rays are obtained Per radiology show severe DJD bilaterally see those reports nothing no fracture noted, explained all the above to the patient this time he does have walking devices that he can use he does not wish to have anything for pain, I will provide him [place] 4 tablets to use at bedtime he is referred to [facility] and to follow- up and return for change in symptoms Treatment Plan: [] Disposition: [] Home stable Impression: [] Fall left hip pain, DJD both hips This note was generated with Trip4real dictation software. It may contain incorrect words, spelling, and punctuation that were not noted in review of the chart prior to signing ED Disposition - Plan for ED Patient: Chief Complaint: Lower Extremity Injury Referrals: Fredis Greenberg Chi, MD [Primary Care Provider] - What to do if you have Problems For any increased pain, shortness of breath, bleeding, nausea or vomiting, chest pain, or any unexpected problems, contact your Primary Care Provider. Call [facility] ([phone]) or report to the closest Emergency Room. Call 911 if necessary. 01/08/18 1434 <Electronically signed by Jose Fay MD> Date Jose Fay MD Cosigner Signature (If Indicated): Date CC: Fredis Greenberg MD DISCHARGE INSTRUCTION Observed: 01/08/2018 Status: F Source: [place] 10:02 AM [facility] Medical Records Department [address] [place] [address] Discharge Instruction 01/08/18 1000 MR#: [id number] Acct: [id number] Name: FARHANA CAMERON Rep #: [id number] : 1940 77 From: Jose Fay MD PCP: Fredis Greenberg MD, Chi Status: REG ER ED Disposition - Plan for ED Patient: Chief Complaint: Lower Extremity Injury Instructions: ED Sprain Hip Prescriptions: Hydrocodone Bitart/Apap 5-325 [[place] 5MG-325MG] 1 tab PO QHS 2 Days #7 tab Referrals: Fredis Greenberg Chi, MD [Primary Care Provider] - What to do if you have Problems For any increased pain, shortness of breath, bleeding, nausea or vomiting, chest pain, or any unexpected problems, contact your Primary Care Provider. Call [facility] ([phone]) or report to the closest Emergency Room. Call 911 if necessary. 01/08/18 1002 <Electronically signed by Jose Fay MD> Date Jose Fay MD Cosigner Signature (If Indicated): Date CC: Fredis Greenberg MD HIP, UNI W/ PELVIS Observed: 01/08/2018 Status: F Source: [place] 2-3 VIEWS 9:10 AM [facility] [place] [facility] Imaging Services [address] [place] [address] HIP, UNI W/ Pelvis 2-3 Views MR#: [id number] Acct: [id number] Name: FARHANA CAMERON Rep #: [id number] : 1940 77 From: Ariella Gil MD PCP: Fredis Greenberg MD, Chi Status: REG ER Study: HIP, UNI W/ Pelvis 2-3 Views Date of Exam: 01/08/18 Exam# [id number] Ordering Dr: Jose Fay MD STUDY: X-RAY - LEFT HIP REASON FOR EXAM: Male, 77 years old. Continued left hip pain after fall 4 days ago. TECHNIQUE: 3 views of the hip. COMPARISON: Prior comparison studies are not available for review at this time. FINDINGS: There are osteoarthritic changes of the femoral head with marginal osteophyte formation. There is large osteoarthritic spur formation of the acetabular rim. Normal hip joint. There are enthesophytes arising from bilateral anterior superior iliac crests. There are degenerative changes of the right hip. There are enthesophytes at the ischial tuberosities. Normal visualized superior and inferior pubic rami and ischial tuberosities. There are pelvic calcifications. RAD/HIP, UNI W/ Pelvis 2-3 Views IMPRESSION: 1. 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 2. Extensive bilateral enthesopathy. Electronically Signed: Ariella Gil MD at 9:48 EST , Service support , CC: MD Joe Fay; Fredis Greenberg MD Wrapper Cashier: Signed CARDIOLOGY VISIT Observed: 12/20/2017 Status: F Source: [place] 2:[place] PM [facility] [place] [facility] [address] [place] [address] OFFICE VISIT Date of Service: 12/20/17 MR#: [id number] Acct: [id number] Name: FARHANA CAMERON Rep #: [id number] : 1940 Provider: Josias Austin MD Age/Sex: 77/M [place] [facility] [place]: Signed HPI HPI Details: FARHANA CAMERON, is a 77 M who presents to the office today for outpatient cardiovascular follow-up. Since his visit of approximately 1 year ago he notes he has been doing well. He states with respect to chest discomfort he had one episode approximately a month ago where he felt a transient electrical vibration across his chest. He had no other associated symptoms with it. It went away in a relatively brief period of time. He did not require further evaluation or care. Otherwise he states he has been doing well. He has had no concerns of palpitation or rapid rates. There has been no issues with respect to near syncope or syncope. He has undergone evaluation care for prostate carcinoma. He states he underwent a surgical procedure. To the best of his knowledge she is carcinoma free at this time and is required no further treatment. Based upon his symptoms he did have an ECG today. He was noted to be in sinus rhythm with a left axis deviation and a possible left anterior fascicular block with poor R wave progression. An anterior PR of indeterminate age could not be excluded. There were no acute ECG changes. In comparison to a previous ECG from 12/20/2015 he had no acute morphologic changes. Intake Vital Signs12/20/17 Height 5 ft 7 in 12/20/17 Weight: 193 lb 12/20/17 Body Mass Index (BMI) 30.2 12/20/17 Blood Pressure 130/60 H Intake Visit Reasons: 1 Y FU Allergies rosuvastatin [From Crestor] Adverse Reaction (Severe, Verified 12/20/17 13:41) Flu like symptoms adhesive tape Adverse Reaction (Verified 12/20/17 13:41) skin tears Medications Atorvastatin Calcium [Lipitor] 40 mg PO QHS 07/01/17 [History Confirmed 12/20/17] Cinnamon Bark [Cinnamon] 1,000 mg PO BID 07/01/17 [History Confirmed 12/20/17] Dulaglutide [Trulicity] 5 mg SQ SA 07/01/17 [History Confirmed 12/20/17] Sitagliptin Phosphate [Januvia] 100 mg PO DAILY 07/01/17 [History Confirmed 12/20/17] calcium carbonate 500 mg-vitamin D3 200 unit-vitamin K2 90 mcg tablet 2 tab PO DAILY tab 12/20/17 [History Confirmed 12/20/17] empagliflozin 25 mg tablet 25 mg PO DAILY 12/20/17 [History Confirmed 12/20/17] metformin 500 mg tablet 1,000 mg PO BID tab 12/20/17 [History Confirmed 12/20/17] metoprolol succinate ER 25 mg tablet,extended release 24 hr 12.5 mg PO BID tab 12/20/17 [History Confirmed 12/20/17] miconazole nitrate 2 % topical cream 1 applic TOPICAL DAILY PRN 12/20/17 [History Confirmed 12/20/17] triamcinolone acetonide 0.1 % topical cream 1 applic TOPICAL DAILY PRN 12/20/17 [History Confirmed 12/20/17] [facility] Medical History Hyperlipemia (Chronic) Essential hypertension (Chronic) Syncope (Acute) Wide-complex tachycardia (Acute) Premature ventricular contraction (Acute) Premature atrial contractions (Acute) Sinus bradycardia (Acute) Atherosclerotic heart disease of [place] coronary artery without angina pectoris (Chronic) Diabetes type 2, controlled (Chronic) Normal pressure hydrocephalus (Chronic) Obesity (Chronic) Sleep apnea, obstructive (Chronic) Neuropathy (Acute) GERD (gastroesophageal reflux disease) (Chronic) Hepatitis B (Chronic) Asymptomatic PVCs (Inactive) Dyslipidemia (Inactive) HTN (hypertension) (Inactive) Surgical History History of cataract surgery (Resolved) History of cholecystectomy (Resolved) History of prostatectomy (Resolved) History of tonsillectomy (Resolved) Family History Father COPD (chronic obstructive pulmonary disease) CAD (coronary artery disease) Mother CVA (cerebral vascular accident) Brother CAD (coronary artery disease) Myocardial infarction, Onset Age: 61 Social History Smoking Status: Former smoker ROS Const Const: Positive for fatigue (increased); negative for weakness, weight gain, weight loss, frequent falls or excessive sweating Eyes Eyes: Negative for change in vision, blurry vision or transient loss of vision ENT ENT: Positive for balance problems (slight unsteadiness); negative for dizziness Cardio Chest Pain: Yes Character: other (like a wire) Onset: at rest Location: other (across the chest) Duration: minutes Palpitations: No Edema: Left Muscle aches with walking: None Resp Respiratory: Negative for SOB with activity or SOB at rest Additional Details: Wears CPAP at night GI GI: Negative vomiting or vomiting blood/hematemesis : Negative for hematuria Musc Musc: Positive for balance problems (slight unsteadiness) and muscle aches/ myalgia (bilat LE neuropathy; tiredness/weakness); negative for muscle weakness or joint pain Skin Skin: Negative non-healing lesions or rash Neuro Neuro: Positive for lightheadedness (on occasion with head pressure); negative for weakness, blurry vision, dizziness, frequent falls or orthostatic symptoms Eloy Hematologic/Lymphatic: Negative for easy bleeding Endo Endo: Positive for fatigue (increased); negative for excessive sweating Psych Psych: Negative for anxiety or depression Allergy Allergy/Immunology: Negative for hives, Negative for rash Cardiology Exam Const Appearance: cooperative, healthy appearing, comfortable, no acute distress, well developed and well groomed Nutritional Appearance: obese Orientation: alert, awake and oriented x3 Head Head: normal to inspection, normocephalic and atraumatic Ears: hearing grossly normal bilaterally Nose: external nose normal Face and Sinus: face symmetric Mouth: oral mucosae normal Teeth and gingiva: fair dentition Eyes Eyelids: eyelids normal Conjunctivae: conjunctivae normal Pupils: PERRL EOM: EOM intact bilaterally Neck Neck: normal visual inspection and full ROM Carotids: normal carotid upstroke Chest Chest inspection: normal inspection of the chest, symmetric chest movement and normal respiratory effort Auscultation: Bilateral: Clear to Auscultation Cardio Palpation: normal PMI Rate: regular rate Rhythm: regular rhythm Heart sounds: S1 normal and S2 normal GI GI: normal to inspection, bowel sounds present, soft and obese Neuro General: alert, awake, oriented x3 and moves all extremities Skin Skin: no rashes or lesions noted Extremities Pulses: Normal: Right Radial Pulse, Left Radial Pulse Lower Extremity Edema: None: Bilateral Bilateral Leg Braces Psych Psychological: normal affect Supplemental Info Transthoracic echocardiogram: 01/21/2016 Interpretation Summary Left ventricular systolic function is normal. The estimated ejection fraction is 60 %. Apical false tendon noted. Trivial mitral valve insufficiency. Trivial tricuspid valve insufficiency. Mild focal aortic valve calcification. Mild (1+) pulmonic valve insufficiency. Stress Test: 01/21/2016 The patient underwent pharmacologic (regadenoson) evaluation with a peak heart rate of 70 beats per minute (47% predicted maximum heart rate) and a peak blood pressure of 132/58 mmHg. The baseline ECG demonstrated sinus bradycardia. The peak pharmacologic ECG demonstrated no obvious ECG changes. There were no cardiac dysrhythmias pretest, during pharmacologic infusion, or recovery. There was no report of chest discomfort during pharmacologic infusion or recovery. The examination was discontinued secondary to completion of protocol. IMPRESSION: 1. Pharmacologic (regadenoson) evaluation. 2. Peak pharmacologic ECG with no obvious ECG changes. 3. Nuclear images pending. MYOCARDIAL PERFUSION IMAGING STUDY: TECHNIQUE: The patient was injected with 14.5 mCi of Tc99m Cardiolite and subsequently rest SPECT Cardiolite nuclear imaging was obtained in the horizontal long, vertical long and short axes views. The patient underwent pharmacologic (regadenoson) evaluation with a peak heart rate of 70 beats per minute (47% predicted maximum heart rate) and a peak blood pressure 132/58 mmHg. The patient was injected with 44.2 mCi of Tc99m Cardiolite and subsequently rest SPECT Cardiolite nuclear imaging was obtained in the horizontal long, vertical long and short axes views. A gated Cardiolite study at peak stress was obtained. INTERPRETATION: Rest and stress SPECT Cardiolite nuclear imaging, status post realignment, normalization, pre-attenuation correction and post-attenuation correction demonstrates areas of extracardiac/hepatic and gastrointestinal tracer uptake near the inferior segments. At pre-attenuation correction, there is diminished tracer uptake in portions of the basal inferoseptal/basal inferior segments without significant change between rest and stress. Status post attenuation correction, there appears to be relative uniform tracer uptake. There appears to be end systolic thickening and brightening. The gated Cardiolite study demonstrates myocardial thickening and inward wall motion. The reported LVEF was 62%. The aforementioned findings of free attenuation correction may be compatible with soft tissue attenuation/artifact and/or gastrointestinal tracer uptake/detraction. Otherwise, there appears to be no obvious myocardial perfusion changes considered diagnostic for associated stress-induced myocardial ischemia or previous myocardial injury/infarction. IMPRESSION: 1. Rest and stress SPECT Cardiolite nuclear imaging demonstrate myocardial perfusion changes appearing compatible with the effects of soft tissue attenuation/artifact with no myocardial perfusion changes considered diagnostic for associated stress-induced myocardial ischemia or previous myocardial injury/infarction. 2. The gated Cardiolite study reports an LVEF of 62%. Cardiac catheterization: 06/24/2001: [facility] FINAL IMPRESSION: 1. Elevated left ventricular end diastolic pressure pre and postangiographic dye load compatible with decreased diastolic compliance/diastolic dysfunction. 2) Left ventricle: Normal LV systolic function with an estimated postprocedure LV of 65%. 3) Left Main: Angiographically normal. 4) LAD-Mid 0-10% minimal luminal irregularities. a. Diagonal branch #1: Small, short first high diagonal branch with proximal 25-50% stenosis. b. Diagonal branch #2: Proximal 0-10% stenosis. 5) LCX-angiographically normal. 6) RCA-proximal and distal 0-10% minimal luminal irregularities. Holter monitor: 05/18/2013 NORMAL SINUS RHYTHM WITH RARE EPISODES OF BORDERLINE 1ST DEGREE AV BLOCK- NJ.22-.24 MINIMUM HR 445PM AT 501:53 AM WHILE ASLEEP. AVERAGE HR62 BPM MAXIMUM HR 109 BPM AT 2:09:04 PM, NO ACTIVITY OR SYMPTOM REdORDED. RARE ISOLATED PREMATURE ATRIAL COMPLEXES. 4 ATRIAL COUPLETS. NO RUNS NOTED. RARE ISOLATED PREMATURE VENTRICULAR COMPLEXES. NO RUNS NOTED. SEVERAL SYMPTOMS DOCUMENTED IN 24 HOUR HOLTER DIARY. FLUTrERING WAS RECORDED ON TWO OCCASIONS- MONITOR SHOWED NORMAL SINUS RHYTHM RATE 63-65RPM WITH ISOLATED PREMATURE VENTRICULAR COMPLEXES. ALSO NOTED BEING DIZZY- MONITOR SHOWED NORMAL SINUS RHYTHM RATE [address]PM [address] OR [address] CHANGES. SHORTNESS OF BREATH DOCUMENTED- MONITOR SHOWED SINUS BRADYCARDIA RATE 45 BPM WITH BORDERLINE 1ST DEGREE AV BLOCK WITHOUT ECTOPICS OR ST CHANGES. Carotid duplex study: 03/15/2003 IMPRESSION: 1. Very minimal bilateral atheromatous plague with smooth contours. No contour irregularities or ulcerations are seen. 2. No evidence of hemodynamic stenosis. 3. Antegrade flow within both vertebral arteries. Assessment AND Plan 1. Atherosclerosis of [place] coronary artery of [place] heart without angina pectoris I25.10 Mild Plan At the present time he appears to be doing well. He denies ongoing issues of classic angina pectoris nor is he had any overt issues of CHF or pulmonary edema. His ECG demonstrates no new acute changes. At the present time he will continue risk factor evaluation and care as deemed appropriate. It was not felt he required further cardiac diagnostic studies or therapeutic intervention. Orders Orders: 2. Premature atrial beat I49.1 Plan He does have a history of underlying cardiac ectopy. Again he appears to be without a get symptoms. He will continue his current medical management and follow-up 3. Premature ventricular beat I49.3 Plan He does have a history of underlying cardiac ectopy. As noted above he appears without acute symptoms. He will continue his current therapy and follow-up. 4. Sinus bradycardia R00.1 Plan He has had no issues with ongoing marked sinus bradycardia or symptomatic sinus bradycardia. His ventricular rate on his ECG today is in the low 60s. He will continue his current therapy and follow-up. 5. Wide-complex tachycardia I47.2 Plan He has had no obvious recurrence of any type of wide complex dysrhythmia. He has had no obvious suspicious symptoms. He will continue his current medical management and follow-up. 6. Hyperlipidemia E78.5 Plan His lipid labs from April of this year were reviewed. They appear to be under reasonably good control with respect to his total cholesterol being 105, LDL 17, HDL 47, and triglyceride level at 206-mildly elevated. He will continue risk factor modification medical management. His lipids will be followed over time as deemed appropriate. 7. Essential hypertension I10 Plan His blood pressure appears to be reasonably well-controlled at this time. Again he will continue his current therapy. 8. Syncope R55 Plan He has had no recurrent syncopal events. He will monitor for any concerns. He will notify the office and/or report to the hospital as needed. Plan Detail Additional Comments Otherwise she will be scheduled for an outpatient visit in approximately 1 year. Thank you for allowing me to participate in the care of your patient. Please don't hesitate to call if any issues arise. This note was generated using a voice recognition system and there may be incorrect words, spelling or punctuation that were not noted when reviewing the office note prior to saving. Follow Up 1 Year (PFM) Coding Level of Care Code Off vis,est,level 4 Diagnoses Atherosclerosis of [place] coronary artery of [place] heart without angina pectoris I25.10 [place] vs. transplanted heart: [place] heart Premature atrial beat I49.1 Premature ventricular beat I49.3 Sinus bradycardia R00.1 Wide-complex tachycardia I47.2 Hyperlipidemia E78.5 Essential hypertension I10 Syncope R55 Coding Level of Care Code Off vis,est,level 4 Diagnoses Atherosclerosis of [place] coronary artery of [place] heart without angina pectoris I25.10 [place] vs. transplanted heart: [place] heart Premature atrial beat I49.1 Premature ventricular beat I49.3 Sinus bradycardia R00.1 Wide-complex tachycardia I47.2 Hyperlipidemia E78.5 Essential hypertension I10 Syncope R55 12/20/17 1429 <Electronically signed by Josias Austin MD> Date Josias Austin MD Cosigner Signature: Date (if applicable) CC: Fredis Greenberg MD 12 LEAD EKG PERFORMED Observed: 12/20/2017 Status: F Source: [place] 1:48 PM [facility] [place] [facility] [address] [place] [id number] 12 Lead EKG performed by [facility] 12/20/17 1348 MR#: [id number] Acct: [id number] Name: FARHANA CAMERON Rep #: [id number] : 1940 77 From: Josias Austin MD Attending Dr: Josias Austin MD Status: DEP AMB Ordering Dr: Josias Austin MD Date: 12/20/17 [place] [facility] [place] Sex: M C Admitted: BMS/12 Lead EKG performed by [facility] ECG Report Interpretation Sinus rhythmLeft axis deviationPossible Left anterior fascicular blockPoor R wave progressionAnterior PR, age undetermined, cannot be excludedABNORMAL Electronically signed on 12/20/2017 at 15:56 by Josias Austin Software Version 8610 12/20/17 1601 Date Josias Austin MD CC: Fredis Greenberg MD Date Dictated: 12/20/17 1348 Date Transcribed: 12/20/171347 Wrapper Cashier: PM Signed PSA,TOTAL- DIAGNOSTIC Collected: 11/04/2017 Status: F Source: [place] 2:48 PM [facility] [place] TYPE CODE TESTS RESULT OUT OF RANGE REFERENCE UNITS LAB L501.9940 0.0-4.0 ng/mL PSA, Normal DIAGNOSTIC < 0.01 Result Comment: This test was performed using the TPSA assay method for the [employer] system. Values obtained with different assay methods cannot be used interchangably. When changing PSA assays in the course of monitoring a patient, additional sequential testing should be carried out to confirm baseline values. Performed By: #### L501.9940 #### [facility] [address] [place], [address] PSA,TOTAL- DIAGNOSTIC Collected: 08/20/2017 Status: F Source: [place] 11:42 AM [facility] [place] TYPE CODE TESTS RESULT OUT OF RANGE REFERENCE UNITS LAB L501.9940 0.0-4.0 ng/mL PSA, Normal DIAGNOSTIC < 0.01 Result Comment: This test was performed using the TPSA assay method for the [employer] chemistry system. Values obtained with different assay methods cannot be used interchangably. When changing PSA assays in the course of monitoring a patient, additional sequential testing should be carried out to confirm baseline values. Performed By: #### L501.9940 #### [facility] [address] [place], [address] CNOV Observed: 08/19/2017 Status: COMPLETED Source: [place] 2:30 PM [facility] REPOSITORY Office Visit (UROLEU) FARHANA CAMERON ([id number]) 1940 M Date Time Provider Department 08/19/17 2:30 PM DAVID LOOMIS During your visit today, we recorded the following information about you: Weight Height 74.8 kg 1.695 m Frances Nicholas Ma 08/19/2017 3:10 PM Signed Wrong chart. Referring Provider: VERA AKERS [[id number]] Allergies As of Date: 08/19/2017 (Not on File) Date Reviewed: 08/19/2017 Reviewed by: Frances Nicholas Ma - Fully Assessed Reason for Visit: Reason For Visit History Recorded Primary Visit Diagnosis:APPOINTMENT CANCELLED Prescriptions as of 08/19/2017 Sig: PEN NEEDLE, DIABETIC 31 GAUGE* Use as directed. GLIMEPIRIDE 4 MG TABLET Take by mouth 1/2 tab daily METFORMIN ER 500 MG TABLET,EX* Take by mouth two tablets ev* * OMEGA-3 ACID ETHYL ESTERS 1 G* Take 2 capsules by mouth twic* * EXENATIDE 10 MCG/DOSE(250 MCG* Inject twice daily before garrison* * ALCOHOL SWABS use as directed * NIACIN ER 500 MG TABLET,EXTEN* Take 500 mg by mouth twice da* * TAMSULOSIN 0.4 MG CAPSULE Take 0.4 mg by mouth. * HYDROCHLOROTHIAZIDE 12.5 MG C* Take 1 capsule by mouth once * * LISINOPRIL 40 MG TABLET Take 1 tablet by mouth once d* * INSULIN GLARGINE (U-100) 100 * Inject subcutaneously. 40 un* * BLOOD SUGAR DIAGNOSTIC STRIPS CHECK BLOOD SUGARS 3-4 TIMES * * CALCIUM CARBONATE 600 MG (1,5* Take one(1) tablet daily. * METOPROLOL TARTRATE 25 MG TAB* Take one(1) tablet two(2) bernardo* * ECOTRIN LOW STRENGTH 81 MG TA* Take one(1) tablet three time* * NEURONTIN 300 MG CAPSULE Takes 1-2 daily * CPAP Use as directed. Problem List As Of Date 08/19/2017 Noted Resolved DIABETES MELLITUS TYPE II UNCONTR UNCOMPL [E11.*INVALID FOR* Fatigue [R53.83] INVALID FOR* Visit Notes: >> Frances Nicholas Ma WedAug 19, 2017 3:10 PM Status: Signed Wrong chart. Encounter Status:Closed by EMANUEL ALBERTS on 08/24/17 ERRONEOUSENC Observed: 08/19/2017 Status: COMPLETED Source: [place] 2:30 PM [facility] REPOSITORY [id number] Farhana Cameron 1940 M * Clinical document posted in Error * Encounter Type Conversion History User Instant Changed From Changed To CHELSEY BURT Sep 07, 2017 10* Office Visit Erroneous* FRANCES NICHOLAS MA Brianne Aug 19, 2017 2* Appointment Office Vi* DOWNTIME REPORT Observed: 08/12/2017 Status: F Source: [place] 1:29 PM [facility] [place] [facility] [facility] Medical Records Department [address] [place] [address] Downtime Report MR#: [id number] Acct: [id number] Name: FARHANA CAMERON R Rep #: [id number] : 1940 77 From: Joel Gil PCP: Red SCHMITT,Fredis Chi Status: REG CLI This patient was seen during an EMR downtime July 26, 2017 - August 02, 2017. This patient may have a combination of paper and electronic documentation or all paper documentation. All documentation is viewable within the e-chart portion of [employer] for each patient visit. CBC W/DIFF, AUTOMATED Collected: 08/09/2017 Status: F Source: [place] 3:12 PM [facility] [place] TYPE CODE TESTS RESULT OUT OF RANGE REFERENCE UNITS LAB L100.1000 4.4-11.0 K/mm3 Normal WBC 8.3 LAB L100.1200 4.6-6.2 M/mm3 Low RBC 4.42 LAB L100.1300 13.0-16.5 g/dl Normal HGB 13.0 LAB L100.1400 40-54 % Normal HCT 40.0 LAB L100.1500 80-94 fL Normal MCV 90.5 LAB L100.1600 27.0-32.0 pg Normal MCH 29.4 LAB L100.1700 32-36 g/gl Normal MCHC 32.5 LAB L100.1810 11.6-14.6 % Normal RDW CV 14.6 LAB L100.1820 35.1-43.9 fl High RDW SD 47.5 LAB L100.1900 150-450 K/mm3 Normal PLT 230 LAB L100.2000 6.2-12.0 fl Normal MPV 9.9 LAB L100.2100 47-70 % High NEUT% 76.3 LAB L100.2200 19-41 % Low LY% 9.2 LAB L100.2300 0-10 % High MONO% 10.7 LAB L100.2400 0-5 % Normal EO% 3.5 LAB L100.2500 0-1 % Normal BASO% 0.1 LAB L100.2550 0.0-0.9 % Normal IM GRAN % 0.200 Result Comment: IG% - Immature Granulocytes (promyelocytes, myelocytes and metamyelocytes) > 1% indicates that a LEFT SHIFT is Present. LAB L100.2620 2.0-7.7 X10 3/uL Normal Absolute Neut 6.3 LAB L100.2720 0.83-4.51 X10 3/ul Low Absolute Lymph 0.76 Performed By: #### L100.0100 #### [facility] [address] [place], [id number] VITAMIN D,25 HYDROXY Collected: 08/09/2017 Status: F Source: [place] 3:12 PM [facility] [place] TYPE CODE TESTS RESULT OUT OF RANGE REFERENCE UNITS LAB L506.1000 29.95-100.01 ng/mL Normal Vitamin D 38.3 25-OH Result Comment: Vitamin D 25(OH) Status Range Deficiency <20 ng/mL (50nmol/L) Insuffciency 20 - 30 ng/mL (50 - 75 nmol/L) Sufficiency 30 - 100 ng/mL (75 - 250 nmol/L) Toxicity >100 ng/mL (>250 nmol/L) Performed By: #### L506.1000 #### [facility] [place] [place], [address] COMPREHENSIVE METABOLIC Collected: 08/09/2017 Status: F Source: [place] [facility] 3:12 PM [facility] [place] TYPE CODE TESTS RESULT OUT OF RANGE REFERENCE UNITS LAB L501.0100 74-106 mg/dL High GLU 242 Result Comment: Glucose result greater than or equal to 200 mg/dL suggests DIABETES MELLITUS per A.D.A. criteria. Please note revised GLUCOSE reference range effective 2017. LAB L501.1000 7-18 mg/dL High BUN 25 LAB L501.1100 0.70-1.30 mg/dL Normal CREAT,SERUM 1.08 Result Comment: The validity of the calculated GFR AND GFRAA in patients over 70 years has not been determined. Clinical correlation is essential. LAB L501.1110 >60 mL/min Normal EST GFR 71 Result Comment: Non- GFR Calc LAB L501.1115 >60 mL/min Normal EST GFR - AA 86 Result Comment: GFR Calc LAB L501.1300 10-20 RATIO High BUN/CRE 23.1 LAB L501.1500 6.4-8.2 g/dL T Normal PROT 6.9 LAB L501.1800 3.2-5.0 g/dL Normal ALB 3.4 LAB L501.1950 2.2-4.2 g/dL Normal GLOB 3.5 LAB L501.2000 0.9-2.4 RATIO Normal A/G 1.0 LAB L501.2200 8.5-10.1 mg/dL CA Normal 8.6 LAB L501.4100 15-37 U/L Normal AST 18 LAB L501.4305 45-117 U/L Normal ALK P 83 LAB L501.4405 16-61 U/L Normal ALT 27 LAB L501.4600 0.20-1.00 mg/dL T Normal BILI 0.70 LAB L501.5300 136-145 mmol/L NA Normal 137 LAB L501.5600 3.5-5.1 mmol/L K Normal 3.9 LAB L501.5900 98-107 mmol/L CL Normal 106 LAB L501.6100 21.0-32.0 mmol/L Normal CO2 23.0 LAB L501.6200 5-15 Normal GAP 8 Performed By: #### L500.4050, L501.9520 #### [facility] [address] [place], [address] THYROID STIM HORMONE Collected: 08/09/2017 Status: F Source: [place]ERING (TSH) 3:12 PM [facility] [place] TYPE CODE TESTS RESULT OUT OF RANGE REFERENCE UNITS LAB L501.9520 0.358-3.74 uIU/mL Normal TSH 0.61 Performed By: #### L500.4050, L501.9520 #### [facility] [address] [place], [address] IRON+IRON BINDING Collected: 07/29/2017 Status: F Source: GERING CAPACITY 2:00 PM [facility] [place] Order Comment: RESULT(S) PREVIOUSLY REPORTED ON MANUAL REQUISITION DURING DOWNTIME. TYPE CODE TESTS RESULT OUT OF RANGE REFERENCE UNITS LAB L503.6075 250-450 ug/dL TIBC Normal 277 LAB L503.6150 65-175 ug/dL Low IRON 63 LAB L503.6250 15.0-55.0 % IRON Normal SATURATION 22.7 Performed By: #### L503.6030 #### [facility] [address] [place], [address] CBC W/DIFF, AUTOMATED Collected: 07/29/2017 Status: F Source: GERING 2:00 PM [facility] [place] Order Comment: RESULT(S) PREVIOUSLY REPORTED ON MANUAL REQUISITION DURING DOWNTIME. TYPE CODE TESTS RESULT OUT OF RANGE REFERENCE UNITS LAB L100.1000 4.4-11.0 K/mm3 Normal WBC 7.2 LAB L100.1200 4.6-6.2 M/mm3 Low RBC 4.03 LAB L100.1300 13.0-16.5 g/dl Low HGB 11.8 LAB L100.1400 40-54 % Low HCT 36.7 LAB L100.1500 80-94 fL Normal MCV 91.1 LAB L100.1600 27.0-32.0 pg Normal MCH 29.3 LAB L100.1700 32-36 g/gl Normal MCHC 32.2 LAB L100.1810 11.6-14.6 % High RDW CV 15.0 LAB L100.1820 35.1-43.9 fl High RDW SD 49.8 LAB L100.1900 150-450 K/mm3 Normal PLT 245 LAB L100.2000 6.2-12.0 fl Normal MPV 9.2 LAB L100.2100 47-70 % Normal NEUT% 69.9 LAB L100.2200 19-41 % Low LY% 18.8 LAB L100.2300 0-10 % Normal MONO% 8.6 LAB L100.2400 0-5 % Normal EO% 1.6 LAB L100.2500 0-1 % Normal BASO% 0.3 LAB L100.2550 0.0-0.9 % Normal IM GRAN % 0.600 Result Comment: IG% - Immature Granulocytes (promyelocytes, myelocytes and metamyelocytes) > 1% indicates that a LEFT SHIFT is Present. LAB L100.2620 2.0-7.7 X10 3/uL Normal Absolute Neut 5.1 LAB L100.2720 0.83-4.51 X10 3/ul Normal Absolute Lymph 1.36 Performed By: #### L100.0100 #### [facility] [address] [place] [address], [id number] BEDSIDE GLUCOSE Collected: 07/15/2017 Status: F Source: DANNY 8:19 AM [facility] [place] CODE TESTS RESULT OUT OF REFERENCE UNITS RANGE LAB L501.080 70-110 mg/dL High BEDSIDE GLU 150 Result Comment: MANAGEMENT OF PATIENT CARE PER NURSING PROTOCOL Performed By: #### L501.080 #### [facility] Point of Care [address] [facility] [place], [place] [address] CBC-COMPLETE BLOOD CNT Collected: 07/15/2017 Status: F Source: DANNY NO DIFF 5:42 AM [facility] [place] CODE TESTS RESULT OUT OF RANGE REFERENCE UNITS LAB L100.1000 4.4-11.0 K/mm3 Normal WBC 7.6 LAB L100.1200 4.6-6.2 M/mm3 Low RBC 3.29 LAB L100.1300 13.0-16.5 g/dl Low HGB 9.8 LAB L100.1400 40-54 % Low HCT 29.5 LAB L100.1500 80-94 fL Normal MCV 89.7 LAB L100.1600 27.0-32.0 pg Normal MCH 29.8 LAB L100.1700 32-36 g/gl Normal MCHC 33.2 LAB L100.1810 11.6-14.6 % Normal RDW CV 13.7 LAB L100.1820 35.1-43.9 fl Normal RDW SD 43.2 LAB L100.1900 150-450 K/mm3 Normal PLT 180 LAB L100.2000 6.2-12.0 fl Normal MPV 9.2 Performed By: #### L100.0500 #### [facility] [address] [place], [address] BASIC METABOLIC Collected: 07/15/2017 Status: F Source: GERING PROFILE (BMP) 5:42 AM [facility] [place] TYPE CODE TESTS RESULT OUT OF RANGE REFERENCE UNITS LAB L501.0100 74-106 mg/dL High GLU 144 Result Comment: Fasting Glucose result greater than or equal to 126 mg/dL suggests DIABETES MELLITUS per A.D.A. criteria. Please note revised GLUCOSE reference range effective 2017. LAB L501.1000 7-18 mg/dL High BUN 33 LAB L501.1100 0.70-1.30 mg/dL Normal CREAT,SERUM 1.21 Result Comment: The validity of the calculated GFR AND GFRAA in patients over 70 years has not been determined. Clinical correlation is essential. LAB L501.1110 >60 mL/min Normal EST GFR 62 Result Comment: Non- GFR Calc LAB L501.1115 >60 mL/min Normal EST GFR - AA 75 Result Comment: GFR Calc LAB L501.1255 ml/min Normal Estimated CRCL 49.32 LAB L501.1300 10-20 RATIO High BUN/CRE 27.3 LAB L501.2200 8.5-10 mg/dL Low .1 CA 7.3 LAB L501.5300 136-14 mmol/L Normal 5 NA 140 LAB L501.5600 3.5-5. mmol/L Normal 1 K 4.0 LAB L501.5900 98-107 mmol/L Normal CL 107 LAB L501.6100 21.0-3 mmol/L Normal 2.0 CO2 24.0 LAB L501.6200 5-15 Normal GAP 9 Performed By: #### L500.2500 #### [facility] [address] [facility] [address] BEDSIDE GLUCOSE Collected: 07/14/2017 Status: F Source: GERING 5:07 PM [facility] [place] CODE TESTS RESULT OUT OF REFERENCE UNITS RANGE LAB L501.080 70-110 mg/dL High BEDSIDE GLU 202 Result Comment: MANAGEMENT OF PATIENT CARE PER NURSING PROTOCOL Performed By: #### L501.080 #### [facility] Point of Care [address] [facility] [place] [address] BEDSIDE GLUCOSE Collected: 07/14/2017 Status: F Source: GERING 12:47 PM [facility] [place] TYPE CODE TESTS RESULT OUT OF REFERENCE UNITS RANGE LAB L501.080 70-110 mg/dL High BEDSIDE GLU 166 Result Comment: MANAGEMENT OF PATIENT CARE PER NURSING PROTOCOL Performed By: #### L501.080 #### [facility] Point of Care [address] [place] [address] DISCHARGE INSTRUCTION Observed: 07/14/2017 Status: F Source: GERING 11:50 AM [facility] Medical Records Department [address] [place] [address] Instructions for Home/Discharge Instructions 07/14/17 1148 MR#: [id number] Acct: [id number] Name: FARHANA CAMERON Joaquin Rep #: [id number] : 1940 77 From: Yovanny Dempsey MD PCP: Red SCHMITT,Fredis Chi Status: ADM IN Discharge Diet: Light diet - advance as tolerated Discharge Activity: May Not Drive, May not drive while taking narcotic pain medications., May Shower Lifting Restrictions: no lifting. Call your doctor if your incision/area has: Continuous Slow Oozing, Sudden Increased Bleeding, Increased Pain/ Swelling, Increased Redness, Foul Smelling Discharge, Swelling at the incision site Call your doctor if you observe: Fever of 101 or Higher, Inability to have a bowel movement, Uncontrolled pain Suture Line Care: Avoid Pulling/Pushing, Avoid Pinching/Bending Instructions: Discharge Instructions for Radical Prostatectomy Allergies/Adverse Reactions: Allergies adhesive tape Adverse Reaction (Verified 07/01/17 14:18) skin tears Medications to take at Discharge Calcium 600 + Vit D Tablet 600 mg PO BID 02/12/13 Metformin HCl 1,000 mg PO BID 02/12/13 Miconazole Nitrate 1 applicatio NOTE DAILY PRN 02/12/13 Metoprolol(XL)Succ 12.5 mg PO BID 02/13/13 Atorvastatin Calcium [Lipitor] 40 mg PO QHS 07/01/17 Cinnamon Bark [Cinnamon] 1,000 mg PO BID 07/01/17 Dulaglutide [Trulicity] 5 mg SQ SA 07/01/17 Empagliflozin [Jardiance] 25 mg PO DAILY 07/01/17 Famotidine [Pepcid] 40 mg PO DAILY PRN 07/01/17 Oxybutynin Chloride [Ditropan Xl] 5 mg PO DAILY 07/01/17 Sitagliptin Phosphate [Januvia] 100 mg PO DAILY 07/01/17 Ciprofloxacin [Cipro] 500 mg PO BID #20 tab 07/14/17 Docusate Sodium [Colace] 100 mg PO BID #20 cap 07/14/17 Hydrocodone/Acetaminophen [[place] 5-325 Tablet] 1 ea PO Q4H PRN PRN 5 Days #14 tab 07/14/17 The following prescriptions were given: Hydrocodone/Acetaminophen [[place] 5-325 Tablet] 1 ea PO Q4H PRN PRN 5 Days #14 tab PRN Reason: Pain Ciprofloxacin [Cipro] 500 mg PO BID #20 tab Docusate Sodium [Colace] 100 mg PO BID #20 cap Primary Care Physician: Fredis Greenberg Chi, MD [Primary Care Provider] - Please Follow Up With: Yovanny Dempsey MD When: July 22 at 11 am. Proposed Discharge Date: 07/15/17 07/14/17 1150 <Electronically signed by Yovanny Dempsey MD> Date Yovanny Dempsey MD CC: Fredis Greenberg MD OPERATIVE REPORT Observed: 07/14/2017 Status: F Source: DANNY 11:43 AM [facility] [place] [facility] Medical Records Department [address] [place] [address] Operative Report 07/14/17 1132 MR#: [id number] Acct: [id number] Name: FARHANA CAMERON Rep #: [id number] : 1940 77 From: Yovanny Dempsey MD PCP: Fredis Greenberg MD, Chi Status: ADM IN Y Location: [address] Report of Operation Date of Procedure: 07/14/17 Pre-Operative Diagnosis: Prostate cancer Post-Operative Diagnosis: Same Surgery/Procedure Performed:: Robotic assisted laparoscopic radical prostatectomy, EMG monitoring of pelvic nerves and sphincter, suture suspension of the urethra to prevent incontinence. Description of Surgical Findings:: 77-year-old male with prostate cancer is elected to undergo rightRadical prostatectomy for curative intent. He was taken back to the operating room timeout was performed, he was given antibiotics, SCDs were in place, after anesthesia was induced and intubated we then placed him supine on the table in dorsal lithotomy position for an approach the prostate laparoscopically. He was in dorsal lithotomy position with the legs in stirrups we make sure that he was properly positioned and padded. We then made a incision in the umbilicus and advanced the Veress needle into the peritoneal cavity insufflated the peritoneal cavity with CO2 gas, and then placed my ports, and then docked the robot, then proceeded with the dissection, first I released the sigmoid colon off the lateral wall on the left side, I then was able to retract the sigmoid out of the pelvis, and then dissected out the vas deferens and the right side seminal vesicles and the right side vas deferens on the left side seminal vesicles in the left side, created a space between the rectum and the prostate, I then dropped the bladder created the space of Retzius put the bladder on traction and then inspected the lymph nodes in the left side and the right side there was no large lymph nodes I decided not to do lymph node dissection his risk of lymph node metastasis was fairly low. I then defatted the 5 top of the prostate this was sent off as a specimen, I then incised the endopelvic fascia and the right side endopelvic fascia and the left side and then dissected at the apex in the dorsal vein and then place a stitch in the dorsal vein came back to the bladder and prostate junction dissected between the bladder and prostate came on top of the urethra pulled the urethra and prostate up and then dissected posteriorly between the bladder and the prostate until I reached the seminal vesicles. Then the prostate was placed on lateral traction place clips on the pedicles and use electrocautery and the pedicles identified the neurovascular bundle freed this off the prostate laterally, I then used the EMG monitoring and check the lateral pelvic nerves and these were intact before and after the dissection of the prostate on the right side dissected all the way up to the apex and the right side and went to the left side identified the left pelvic and prostate pedicle and clip in the pedicle 1 of the clips broke off found the major clip and then found the broken pieces all these were taken out and then clipped the pedicle more and then released the neurovascular bundle on the left side all the way up to the apex transected to the dorsal vein complex then dissected all way around the urethra complex to the urethra and the prostate was then free put in Endo Catch bag I then performed suture suspension of the urethra to try to prevent incontinence using of 3-0 Vicryl and also of 30V lock and ran an anastomosis between the bladder neck and the urethra at the anastomosis was completed over a catheter then I re-tacked the bladder back up into the anterior abdominal wall. We then extracted the prostate through the umbilical trocar closed the 10 the variceal trocar with a tense 1012 Dong Waldron stitch patient's anesthetic was reversed we flushed the catheter and is taken back to the PACU in good condition. Type of Anesthesia:: General Drains: garcia - Admit VTE Documentation VTE Present on Admission: No VTE Mechan Device Prophylaxis: SCD's VTE Pharm Prophylaxis ordered?: No Reason prophylaxis not ordered:: Treatment Not Indicated 07/14/17 1143 <Electronically signed by Yovanny Dempsey MD> Date Yovanny Dempsey MD CC: Yovanny Dempsey MD; Fredis Greenberg MD Signed BEDSIDE GLUCOSE Collected: 07/14/2017 Status: F Source: DANNY 6:06 AM [facility] [place] CODE TESTS RESULT OUT OF RANGE REFERENCE UNITS LAB L501.080 70-110 mg/dL Normal BEDSIDE GLU 98 Result Comment: MANAGEMENT OF PATIENT CARE PER NURSING PROTOCOL Performed By: #### L501.080 #### [facility] [place] [address] PROSTATE RADICAL Observed: 07/14/2017 Status: F Source: DANNY RESECTION 12:00 AM [facility] [place] Patient: FARHANA CAMERON : 1940 (77/M) Acct Num: [id number] Phys: Ke SCHMITT,Yovanny Kurtz Unit Num: [id number] Loc: MS2 [id number] Specimen: [id number] Received: 07/14/171536 Spec Type: PROSTATE TISSUES TISSUES: A. Prostate, NOS B. Omentum, NOS COMMENT A. The tumor in the right lobe is present in blocks #3 and 7, in the apical portion of the prostate and measures 0.6 x 0.2 cm in greatest dimension ( measured microscopically). The tumor in the left lobe is present in blocks #8, 10, 12, 14 and 16 and measures 1.2 x 1 cm in greatest dimension and involves apical, mid portion and basal portion of the prostate. Immunohistochemistry ( [id number]) supports the diagnosis of a minute focus of adenocarcinoma in the apical margin of the prostate. Please make reference to previous specimen ([id number]), left prostate, mid and left prostate, base with diagnosis of prostatic adenocarcinoma. Case has been reviewed in consultation with Dr. Rasheed who concurs with the above diagnosis. IDC:AM GROSS DESCRIPTION A - Received in fixative is one container labeled with the patient's name and designated prostate. The specimen consists of a radical prostatectomy specimen consisting of prostate and attached bilateral seminal vesicles and vas deferens. The prostate and attached seminal vesicles weigh 52 gm. The prostate measures 4.5 cm transversely, 4 cm anteroposteriorly and 4 cm craniocaudally. The right seminal vesicle measures 3 x 2 x 1 cm and right vas deferens measures 3.5 cm in length and 0.5 cm in diameter. The left seminal vesicle measures 3 x 1.5 x 1.5 cm and left vas deferens measures 3 cm in length and 0.5 cm in diameter. The prostate is inked as follows: anterior surface yellow, posterior surface black, right lateral surface blue, left lateral surface green. The seminal vesicles and vas deferens are inked as follows: posterior surface, right and left seminal vesicles and vas deferens black, anterior surface, right seminal vesicle and vas deferens blue, anterior surface, left seminal vesicle and vas deferens green. Sections of the prostate do not reveal any obvious mass lesion. Business Department Chair sections are submitted in 18 cassettes as follows: 1 - right seminal vesicle and vas deferens, 2 left seminal vesicle and vas deferens, 3 apical (urethral) margin, enface, 4 AND 5 bladder base margin, enface, 6-10 apical portion of prostate, 1114 middle portion of prostate, 15-18 basal portion of the prostate (cassettes 17 AND 18 contain the most basal portion of the prostate. Sections will be submitted after infusion cycle. B - Received in fixative is one container labeled with the patient's name and designated fat over prostate. The specimen consists of a piece of yellow adipose tissue measuring 9 x 2 x 0.5 cm. No mass lesion is identified. Business Department Chair sections are submitted in one cassette. / SJ:rg 07/15/17 TC:0 CPT: 18703, 44276 HEADER OPERATION: Laparoscopic robotic assisted radical prostatectomy PRE-OP DIAGNOSIS: Prostate cancer, elevated PSA TISSUE SUBMITTED: A Prostate, B Fat over prostate MICROSCOPIC DESCRIPTION Slides are reviewed. MICROSCOPIC DIAGNOSIS A. Prostate, radical prostatectomy: Prostatic adenocarcinoma. See cancer summary below. B. Fat over prostate: Mature adipose tissue, negative for carcinoma. PROSTATE CANCER (RADICAL) SUMMARY: Procedure radical prostatectomy Prostate size 4.5 cm transversely, 4 cm anterior-posteriorly and 4 cm craniocaudally Prostate weight 52 gm Lymph node sampling no lymph nodes present Histologic type adenocarcinoma (acinar) Histologic grade (Jimmie Pattern): Primary pattern grade 4 Secondary pattern grade 3 Tertiary pattern not applicable Total F[place]ont score - 7 Tumor Quantitation: Proportion (%) of prostate involved by tumor - ~10-15% Extraprostatic extension not identified Seminal vesicle invasion not identified Margins apical margin focally involved by tumor, a minute focus (right lobe) Treatment effect on carcinoma not identified Lymph-Vascular invasion - not identified Perineural invasion present, focal Regional lymph nodes no nodes submitted or found Distant metastasis not applicable Additional pathologic findings chronic inflammation - Benign prostatic hyperplasia. - Right seminal vesicle shows focal calcification and left seminal vesicle with focal cystic changes. Ancillary studies See IHC ([id number]) report. PATHOLOGIC STAGE: pT2c pNx Mx The above summary is in compliance with [employer] (CAP) Cancer Protocols Checklist and [place] Joint Committee on Cancer (AJCC), Staging Manual, 8th Ed. SJ:julia 07/20/17 PSA RESULTS Date Time Test Result Flag (u) Normal Range 06/13/13 0748 PSA,TOT SCREEN 4.99 H 0.00-4.00 ng/mL This test was performed using the TPSA assay method for the Dimension chemistry system. Values obtained with different assay methods cannot be used interchangably. When changing PSA assays in the course of monitoring a patient, additional sequential testing should be carried out to confirm baseline values. Date Time Test Result Flag (u) Normal Range 07/01/17 1505 PSA, DIAGNOSTIC 2.71 0.0-4.0 ng/mL This test was performed using the TPSA assay method for the Dimension chemistry system. Values obtained with different assay methods cannot be used interchangably. When changing PSA assays in the course of monitoring a patient, additional sequential testing should be carried out to confirm baseline values. Signed Javy Diaz 07/22/17 <signature on file> Performed By: #### PPROST #### [facility] [address] [place] [address]. [place], [address] IMMUNOHISTOCHEMISTRY Observed: 07/14/2017 Status: F Source: GERING 12:00 AM [facility] [place] Patient: FARHANA CAMERON : 1940 (77/M) Acct Num: [id number] Phys: Ke SCHMITT,Yovanny Kurtz Unit Num: [id number] Loc: MS2 [id number] Specimen: [id number] Received: 07/20/17 - 1125 Spec Type: IMMUNO TISSUES TISSUES: A. Prostate, NOS - BLOCK 3 SPECIMEN INFORMATION: Tissue Source: A - Prostate Clinical Info: Prostate cancer, elevated PSA Specimen Number: [id number] CPT code: 17219, 82935 x2 METHODOLOGY: Deparaffinized sections of prefer/formalin-fixed tissue or PAP/DQ stained slides are incubated with monoclonal/polyclonal antibodies/oligonucleotide probes. Localization is made via biotin free immunoperoxidase method. Appropriate controls are performed and reacted as expected. Results on target cell population are indicated in the following table: RESULTS: ANTIBODY / CLONE RESULT Block A3 P40 (BC28) negative 34BE12 (34BE12) negative CK8 (63apxyJ79) positive These tests were developed and their performance characteristics determined by [facility]. They may not have been cleared or approved by the U.S. Food and Drug Administration. The FDA has determined that such clearance or approval is not necessary. INTERPRETATION: A. Prostate, radical prostatectomy: A minute focus of adenocarcinoma (block A3 ). This case has been reviewed in consultation with Dr. Rasheed who concurs with the above diagnosis. SJ:julia 07/22/17 PHYSICIAN AND INSTITUTION [place] [address] Signed Javy Diaz 07/22/17 <signature on file> Performed By: #### PIMM #### [facility] [address] [place] [address]. [place], [place], [id number] 12 LEAD ELECTROCARDIOGRAM Observed: 07/02/2017 Status: F Source: GERING 1:50 PM [facility] Cardiovascular Services [address] [place] [address] EKG - [facility] 07/01/17 1358 MR#: [id number] Acct: [id number] Name: FARHANA CAMERON Rep #: [id number] : 1940 77 From: Josias Austin MD Attending Dr: Yovanny Dempsey MD Status: PRE IN Ordering Dr: West Pfeiffer MD Date: 07/01/17 Location: [facility] Sex: M C Admitted: Test Reason : Blood Pressure : / mmHG Vent. Rate : 056 BPM Atrial Rate : 056 BPM P-R Int : 194 ms QRS Dur : 102 ms QT Int : 420 ms P-R-T Axes : -04 -31 017 degrees QTc Int : 405 ms Sinus bradycardia Left axis deviation Septal infarct , age undetermined Abnormal ECG Confirmed by NORMAN SCHMITT, JOSIAS ([id number]), editor in chief newspaper [employer] GIL ([id number]) on 07/02/2017 1:50:00 PM Referred By: Yovanny Dempsey Confirmed By:JOSIAS AUSTIN MD 07/02/171349 Date Josias Austin MD CC: West Pfeiffer MD; Yovanny Dempsey MD; Fredis Greenberg MD Date Dictated: 07/01/171357 Date Transcribed: 07/01/171357 Wrapper Cashier: Signed PSA,TOTAL- DIAGNOSTIC Collected: 07/01/2017 Status: F Source: GERING 3:05 PM [facility] TYPE CODE TESTS RESULT OUT OF RANGE REFERENCE UNITS LAB L501.9940 0.0-4.0 ng/mL PSA, Normal DIAGNOSTIC 2.71 Result Comment: This test was performed using the TPSA assay method for the [employer] chemistry system. Values obtained with different assay methods cannot be used interchangably. When changing PSA assays in the course of monitoring a patient, additional sequential testing should be carried out to confirm baseline values. Performed By: #### L501.9940 #### [facility] [address] [place], [place], [address] PROTHROMBIN TIME W/INR Collected: 07/01/2017 Status: F Source: GERING 3:05 PM [facility] TYPE CODE TESTS RESULT OUT OF RANGE REFERENCE UNITS LAB L300.4150 11.7-14.9 SECONDS Normal PROTIME 14.0 LAB L300.4200 Normal INR 1.1 Performed By: #### L300.3900, L300.4310 #### [facility] [address] [place], [address] PARTIAL THROMBOPLAST Collected: 07/01/2017 Status: F Source: DANNY TIME 3:05 PM [facility] TYPE CODE TESTS RESULT OUT OF RANGE REFERENCE UNITS LAB L300.4310 24.1-36.2 Seconds Normal PTT 33.2 Performed By: #### L300.3900, L300.4310 #### [facility] [address] [place], [address] LYME ANTIBODIES,W BLOT Collected: 05/17/2017 Status: F Source: DANNY 12:09 PM [facility] TYPE CODE TESTS RESULT OUT OF RANGE REFERENCE UNITS LAB L7000.5920 . Normal P93 Ab Absent LAB L7000.5940 . Normal P66 Ab Absent LAB L7000.5960 . Normal P58 Ab Absent LAB L7000.5980 . Normal P45 Ab Absent LAB L7000.6000 . Normal P41 Ab Absent LAB L7000.6020 . Normal P39 Ab Absent LAB L7000.6040 . Normal P30 Ab Absent LAB L7000.6060 . Normal P28 Ab Absent LAB L7000.6080 . Normal P23 Ab Absent LAB L7000.6100 . Normal P18 Ab Absent LAB L7000.6200 . Normal LYME IgG Negative INTERP Result Comment: Positive: 5 of the following Borrelia-specific bands: 18,23,28,30,39,41,45,58, 66, and 93. Negative: No bands or banding patterns which do not meet positive criteria. LAB L7000.6320 . Normal P41 Ab Absent LAB L7000.6340 . Normal P39 Ab Absent LAB L7000.6360 . Normal P23 Ab Absent LAB L7000.6400 . Normal LYME IgM Negative INTERP Result Comment: Note: An equivocal or positive EIA result followed by a negative Western Blot result is considered NEGATIVE. An equivocal or positive EIA result followed by a positive Western Blot is considered POSITIVE by the CDC. Positive: 2 of the following bands: 23,39 or 41 Negative: No bands or banding patterns which do not meet positive criteria. Criteria for positivity are those recommended by CDC/ASTPHLD. p23=Osp C, e30=hkqyilrjv Note: Sera from individuals with the following may cross react in the Lyme Western Blot assays: other spirochetal diseases (periodontal disease, leptospirosis, relapsing fever, yaws, and pinta); connective autoimmune (Rheumatoid Arthritis and Systemic Lupus Erythematosus and also individuals with Antinuclear Antibody); other infections ([employer] Spotted Fever; Salomon-Armijo Virus, and Cytomegalovirus). Performed at: [facility] Lab[address] [id number] Bible Worker: Manuel Solomon MD, Phone: [phone] Performed By: #### L7000.5800 #### [facility] (refer to report for specific site) refer to report for address and phone number TISSUE BIOPSY Observed: 05/11/2017 Status: F Source: [place] 11:24 AM [facility] [place] Patient: FARHANA CAMERON : 1940 (77/M) Acct Num: [id number] Phys: Ke SCHMITT,Min Unit Num: [id number] Loc: CT Specimen: [id number] Received: 05/11/17 - 1548 Spec Type: Tissue Bx TISSUES TISSUES: Skin of forehead GROSS DESCRIPTION Received is one container labeled with the patient's name and not further designated. The specimen consists of a light valdes shaved biopsy of skin measuring 0.7 x 0.5 x 0.1 cm. The specimen is inked, bisected and totally submitted in one cassette. / AM:julia 05/12/17 TC:1 CPT: 76070 HEADER OPERATION: Not noted PRE-OP DIAGNOSIS: L81.9 TISSUE SUBMITTED: Forehead MICROSCOPIC DESCRIPTION Slides are reviewed. MICROSCOPIC DIAGNOSIS Forehead lesion, shave biopsy: Seborrheic keratosis. Actinic keratosis and solar elastosis. SJ:julia 05/13/17 Signed Javy Diaz 05/13/17 <signature on file> Performed By: #### PTISS #### [facility] [address], [address] ABDOMEN/PELVIS W IV CONT Observed: 05/11/2017 Status: F Source: DANNY ONLY 7:00 AM [facility] [place] [facility] Services [address] [place] [address] Abdomen/Pelvis W IV Cont ONLY MR#: [id number] Acct: [id number] Name: FARHANA CAMERON Rep #: [id number] : 1940 M 77 From: Fareed Beckham MD PCP: Red SCHMITT,Fredis Schaefer Status: REG CLI Study: Abdomen/Pelvis W IV Cont ONLY Date of Exam: 05/11/17 Exam# [id number] Ordering Dr: Yovanny Dempsey MD STUDY: CT ABDOMEN AND PELVIS WITH CONTRAST REASON FOR EXAM: Male, 77 years old. New diagnosis of prostate cancer. RADIATION DOSAGE (If Supplied By Facility): CTDIvol = ( 15.42 ) mGy, DLP = ( 879.12 ) mGycm TECHNIQUE: Transaxial images were obtained from the dome of the diaphragm to the symphysis pubis without oral contrast. 100 ml of Isovue 300 contrast was administered. Sagittal and coronal images were reconstructed. Individualized dose optimization techniques were used for this CT. COMPARISON: None. FINDINGS: The visualized lung bases are unremarkable. Coronary artery calcification. Normal liver. The patient is status post cholecystectomy. Normal spleen. Normal pancreas. Normal bilateral adrenal glands. 1.4 cm cyst in the upper pole of the right kidney. Focal calcification in the lateral upper pole of the left kidney. There is a small hiatal hernia. Normal small intestine. There are scattered colonic diverticula consistent with diverticulosis. The appendix is visualized and appears normal. There is diffuse atherosclerotic calcification of the abdominal aorta, without a demonstrated aneurysm. Normal inferior vena cava. There is borderline retroperitoneal lymphadenopathy with enlarged nodes no greater than 10mm in the short axis diameter. Normal urinary bladder. The prostate measures 3.6 cm x 5 cm. This causes indentation at the bladder base. Central prostatic calcifications. This also evidence of calcification of the right seminal vesicle. Normal abdominal wall. There are diffuse degenerative changes of the visualized lumbar spine. CT/Abdomen/Pelvis W IV Cont ONLY IMPRESSION: Right renal cyst. Focal calcification the upper pole of the left kidney. Mild enlargement of the prostate gland. Electronically Signed: Fareed Beckham MD at 10:02 EDT Tel [phone], Service support , CC: Yovanny Dempsey MD; Fredis Greenberg MD Wrapper Cashier: Signed BONE SCAN WHOLE Observed: 05/06/2017 Status: F Source: GERING BODY 7:31 AM [facility] [place] [facility] Imaging Services [address] [place] [address] Bone Scan Whole Body MR#: [id number] Acct: [id number] Name: FARHANA CAMERON Rep #: [id number] : 1940 M 77 From: Theo Santiago DO PCP: Red SCHMITT,Fredis Schaefer Status: REG CLI Study: Bone Scan Whole Body Date of Exam: 05/06/17 Exam# [id number] Ordering Dr: Yvoanny Dempsey MD CLINICAL: 77-year-old male with 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 WHOLE BODY 99m Tc MDP RADIONUCLIDE BONE SCINTIGRAPHY COMPARISON: None available FINDINGS: Following the intravenous administration of 27.0 mCi of 99m Tc MDP, whole body bone images reveal: 1. There is an increase in radiopharmaceutical concentration identified in the acromioclavicular and sternoclavicular compartments of both shoulders, fourth-fifth lumbar vertebra posteriorly on the right, seventh thoracic vertebra posteriorly on the left, bilateral knee articulations, the left wrist. 2. The remaining skeletal structures are scintigraphically unremarkable with normal-appearing renal images and urinary bladder activity identified. Asymmetric increased uptake is demonstrated in the greater trochanteric aspect of the left proximal femur most consistent with trochanteric bursitis and/or periostitis. NM/Bone Scan Whole Body IMPRESSION: 1. The increase in radiopharmaceutical concentration identified in the bilateral shoulders, thoracic and lumbar spine, knees bilaterally and left wrist is most consistent with degenerative arthritis. 2. There is no definitive scintigraphic evidence of diffuse axial skeletal metastatic disease on the current examination. Electronically Signed: Theo Santiago DO at 10:52 EDT Tel , Service support , CC: Yovanny Dempsey MD; Fredis Greenberg MD Wrapper Cashier: Signed HEMOGLOBIN A1C Collected: 05/04/2017 Status: F Source: [place] 3:14 PM [facility] [place] Order Comment: DR GREENBERG ADDED A1C TYPE CODE TESTS RESULT OUT OF RANGE REFERENCE UNITS LAB L501.9985 4.2-6.3 % High HGB A1C 7.5 Performed By: #### L501.9985 #### [facility] [address] [place], [place], [id number] CBC W/DIFF, AUTOMATED Collected: 04/29/2017 Status: F Source: GERING 3:14 PM [facility] [place] TYPE CODE TESTS RESULT OUT OF RANGE REFERENCE UNITS LAB L100.1000 4.4-11.0 K/mm3 Normal WBC 6.3 LAB L100.1200 4.6-6.2 M/mm3 Normal RBC 4.76 LAB L100.1300 13.0-16.5 g/dl Normal HGB 14.1 LAB L100.1400 40-54 % Normal HCT 43.1 LAB L100.1500 80-94 fL Normal MCV 90.5 LAB L100.1600 27.0-32.0 pg Normal MCH 29.6 LAB L100.1700 32-36 g/gl Normal MCHC 32.7 LAB L100.1810 11.6-14.6 % Normal RDW CV 13.3 LAB L100.1820 35.1-43.9 fl Normal RDW SD 43.7 LAB L100.1900 150-450 K/mm3 Normal PLT 173 LAB L100.2000 6.2-12.0 fl Normal MPV 9.8 LAB L100.2100 47-70 % Normal NEUT% 61.4 LAB L100.2200 19-41 % Normal LY% 25.0 LAB L100.2300 0-10 % High MONO% 10.9 LAB L100.2400 0-5 % Normal EO% 2.2 LAB L100.2500 0-1 % Normal BASO% 0.3 LAB L100.2550 0.0-0.9 % Normal IM GRAN % 0.200 Result Comment: IG% - Immature Granulocytes (promyelocytes, myelocytes and metamyelocytes) > 1% indicates that a LEFT SHIFT is Present. LAB L100.2620 2.0-7.7 X10 3/uL Normal Absolute Neut 3.9 LAB L100.2720 0.83-4.51 X10 3/ul Normal Absolute Lymph 1.58 Performed By: #### L100.0100 #### [facility] [place] [address] [place], [address] COMPREHENSIVE METABOLIC Collected: 04/29/2017 Status: F Source: DANNY [facility] 3:14 PM [facility] [place] TYPE CODE TESTS RESULT OUT OF RANGE REFERENCE UNITS LAB L501.0100 74-106 mg/dL High GLU 155 Result Comment: Fasting Glucose result greater than or equal to 126 mg/dL suggests DIABETES MELLITUS per A.D.A. criteria. Please note revised GLUCOSE reference range effective 2017. LAB L501.1000 7-18 mg/dL High BUN 29 LAB L501.1100 0.70-1.30 mg/dL Normal CREAT,SERUM 1.15 Result Comment: The validity of the calculated GFR AND GFRAA in patients over 70 years has not been determined. Clinical correlation is essential. LAB L501.1110 >60 mL/min Normal EST GFR 66 Result Comment: Non- GFR Calc LAB L501.1115 >60 mL/min Normal EST GFR - AA 80 Result Comment: GFR Calc LAB L501.1300 10-20 RATIO High BUN/CRE 25.2 LAB L501.1500 6.4-8.2 g/dL T Normal PROT 7.1 LAB L501.1800 3.2-5.0 g/dL Normal ALB 3.6 LAB L501.1950 2.2-4.2 g/dL Normal GLOB 3.5 LAB L501.2000 0.9-2.4 RATIO Normal A/G 1.0 LAB L501.2200 8.5-10.1 mg/dL CA Normal 8.7 LAB L501.4100 15-37 U/L Normal AST 25 LAB L501.4305 45-117 U/L Normal ALK P 83 LAB L501.4405 16-61 U/L Normal ALT 36 Result Comment: Please note revised ALT reference range effective 2017. LAB L501.4600 0.20-1.00 mg/dL Normal T BILI 0.50 LAB L501.5300 136-145 mmol/L Normal NA 141 LAB L501.5600 3.5-5.1 mmol/L Normal K 4.1 LAB L501.5900 98-107 mmol/L Normal CL 104 LAB L501.6100 21.0-32.0 mmol/L Normal CO2 29.0 LAB L501.6200 5-15 Normal GAP 8 Performed By: #### L500.4050, L500.4100, L501.9520 #### [facility] [address] [facility] [place], [place], [id number] LIPID PROFILE Collected: 04/29/2017 Status: F Source: GERING 3:14 PM [facility] [place] TYPE CODE TESTS RESULT OUT OF RANGE REFERENCE UNITS LAB L501.4900 200 mg/dL Normal CHOL 105 Result Comment: <200 mg/dL Desirable 200-240 mg/dL Borderline >240 mg/dL High Risk LAB L501.5000 mg/dL High TRIG 206 Result Comment: The drugs N-Acetylcysteine and Metamizole may falsely depress this assay. Serum Triglycerides Reference Interval Normal <150 mg/dL Borderline high 150 - 199 mg/dL High 200 - 499 mg/dL Very High > or = 500 mg/dL LAB L501.6400 mg/dL Normal HDL 47 Result Comment: The drugs N-Acetylcysteine and Metamizole may falsely depress this assay. Reference Range HDL <40 mg/dL Low HDL Cholesterol HDL >or= 60 mg/dL High HDL Cholesterol LAB L501.6500 0-130 mg/dL Normal LDL 17 LAB L501.6600 5-40 mg/dL High VLDL 41 Performed By: #### L500.4050, L500.4100, L501.9520 #### [facility] [address] [facility] [place], [place], [address] THYROID STIM HORMONE Collected: 04/29/2017 Status: F Source: DANNY (TSH) 3:14 PM [facility] [place] TYPE CODE TESTS RESULT OUT OF RANGE REFERENCE UNITS LAB L501.9520 0.358-3.74 uIU/mL Normal TSH 1.95 Performed By: #### L500.4050, L500.4100, L501.9520 #### [facility] [place] [address] [place], [address] PROSTATE BIOPSY Observed: 04/19/2017 Status: F Source: GERING BILATERAL 4:30 PM [facility] [place] Patient: FARHANA CAMERON : 1940 (77/M) Acct Num: [id number] Phys: Ke SCHMITT,Min Unit Num: [id number] Loc: LABSPEC Specimen: [id number] Received: 04/19/17 - 1 Spec Type: PROST BX TISSUES TISSUES: A. PROSTATE RIGHT B. PROSTATE RIGHT C. PROSTATE RIGHT D. PROSTATE LEFT E. PROSTATE LEFT F. PROSTATE LEFT ADDENDUM Addendum Number 1 An order for Oncotype testing was received from Dr. Dempsey. This necessitated case review, block and slide selection by pathologist at [facility]. Prostate Cancer Recurrence Score = 52 Results of the complete Oncotype testing (Clinc! report) are viewable in EMR under: Reports - Pathology - Lab Pathology Report, Scanned. Addendum Signed Javy Diaz 05/21/17 <signature on file> COMMENT E. Immunohistochemistry ([id number]) supports the above diagnosis. GROSS DESCRIPTION A - Received is one container designated prostate, right apex. The specimen consists of a minute fragment of valdes soft tissue is noted measuring <0.1 cm in greatest dimension. The entire specimen is submitted in one cassette. It may not survive processing. B - Received is one container designated prostate, right mid. The specimen consists of one elongated fragment of light valdes-white soft tissue measuring 0.7 cm in length and 0.1 cm in diameter. The specimen is totally submitted in one cassette. C - Received is one container designated prostate, right base. The specimen consists of two elongated fragments of light valdes-white soft tissue measuring 0.7 and 1 cm in length and 0.1 cm in diameter. The specimen is totally submitted in one cassette. D - Received is one container designated prostate, left apex. The specimen consists of one elongated fragment of light valdes-white soft tissue measuring 0.2 cm in length and 0.1 cm in diameter. The specimen is totally submitted in one cassette. E - Received is one container designated prostate, left mid. The specimen consists of two elongated fragments of light valdes-white soft tissue each measuring 0.5 cm in length and 0.1 cm in diameter. The specimen is totally submitted in one cassette. F - Received is one container designated prostate, left base. The specimen consists of one elongated fragment of light valdes-white soft tissue measuring 1 cm in length and 0.1 cm in diameter. The specimen is totally submitted in one cassette. / SJ:rg 04/20/17 TC:0 CPT: G0146 HEADER OPERATION: Prostate biopsy PRE-OP DIAGNOSIS: Elevated PSA TISSUE SUBMITTED: A - Right apex, B - Right mid, C - Right base, D - Left apex, E - Left mid, F - Left base MICROSCOPIC DESCRIPTION Slides are reviewed. MICROSCOPIC DIAGNOSIS A. Right prostate, apex, core biopsy: Scant minute fragment of prostatic stromal tissue, negative for malignancy. B. Right prostate, mid, core biopsy: Prostatic tissue, negative for malignancy. Focal mild chronic inflammation. C. Right prostate, base, core biopsy: Prostatic tissue, negative for malignancy.. D. Left prostate, apex, core biopsy: Predominantly prostatic stromal tissue, negative for malignancy. E. Left prostate, mid, core biopsy: Prostatic adenocarcinoma: [place]ont grade: 3+4=7 Number of cores involved: 2 out of 2 Proportion of tissue involved: 20% Perineural invasion: Not identified. Greatest tumor length: 0.3 cm See comment. F. Left prostate, base, core biopsy: Prostatic adenocarcinoma: [place] grade: 3+4=7 Number of cores involved: 1 out of 1 Proportion of tissue involved: ~60% Perineural invasion: Not identified. Greatest tumor length: 0.5 cm Focal atrophy. : 04/21/17 PSA RESULTS Date Time Test Result Flag (u) Normal Range 06/13/13 0748 PSA,TOT SCREEN 4.99 H 0.00-4.00 ng/mL This test was performed using the TPSA assay method for the [employer] chemistry system. Values obtained with different assay methods cannot be used interchangably. When changing PSA assays in the course of monitoring a patient, additional sequential testing should be carried out to confirm baseline values. Date Time Test Result Flag (u) Normal Range 03/11/17 1537 PSA, DIAGNOSTIC 3.16 0.0-4.0 ng/mL This test was performed using the TPSA assay method for the [employer] chemistry system. Values obtained with different assay methods cannot be used interchangably. When changing PSA assays in the course of monitoring a patient, additional sequential testing should be carried out to confirm baseline values. Signed Javy Diaz 04/21/17 <signature on file> Performed By: #### PPROSBIL #### [facility] [address] [place], [place] [address]te. [place], [place], [id number] IMMUNOHISTOCHEMISTRY Observed: 04/19/2017 Status: F Source: GERING 12:00 [facility] REPOSITORY Patient: FARHANA CAMERON : 1940 (77/M) Acct Num: [id number] Phys: Ke SCHMITT,Min Unit Num: [id number] Loc: LABSPEC Specimen: [id number] Received: 04/21/17 - 1050 Spec Type: IMMUNO TISSUES TISSUES: E. PROSTATE LEFT - MID SPECIMEN INFORMATION: Tissue Source: E - Left prostate, mid, core biopsy Clinical Info: Elevated PSA Specimen Number: [id number] CPT code: 45765, 48374 METHODOLOGY: Deparaffinized sections of prefer/formalin-fixed tissue or PAP/DQ stained slides are incubated with monoclonal/polyclonal antibodies/oligonucleotide probes. Localization is made via biotin free immunoperoxidase method. Appropriate controls are performed and reacted as expected. Results on target cell population are indicated in the following table: RESULTS: ANTIBODY / CLONE RESULT Block E P40 (BC28) negative 34BE12 (34BE12) negative These tests were developed and their performance characteristics determined by [facility]. They may not have been cleared or approved by the U.S. Food and Drug Administration. The FDA has determined that such clearance or approval is not necessary. INTERPRETATION: E. Left prostate, mid, core biopsy: Adenocarcinoma. SJ:julia 04/21/17 PHYSICIAN AND INSTITUTION [address] [address] Signed Javy Diaz 04/21/17 <signature on file> Performed By: #### PIMM #### [facility] [address], [address] ALLERGIES ALLERGIES DATE TYPE / CODE NAME / CODE REACTION SEVERITY SOURCE 01/08/2018 Drug adhesive SKIN TEARS Unknown [facility] Allergy/416 tape/[id number]( Hospital 900372(SNOM RXNORM) Repository ED CT) 01/08/2018 Drug rosuvastatin/F00 FLU LIKE SV [facility] [place] Allergy/606 2595203(RXNORM) SYMPTOMS Hospital 969218(SNOM Repository ED CT) 02/12/2013 Drug No Known Unknown [facility] [place] Allergy/416 Allergies/B13441 Hospital 983573(SNOM 0388(RXNORM) Repository ED CT) Drug NO KNOWN [facility] Class/85988 ALLERGIES Main [place] 1003(SNOMED Repository CT) ENCOUNTERS ENCOUNTERS ADMIT/DISCHARGE ACCOUNT ADMITTING ENCOUNTER LOCATION SOURCE NUMBER CLASS 03/14/2018 [id number] Ambulatory [facility] ing:LAB Repository 03/09/2018 [id number] [facility] ing:CVS Repository 02/03/2018 [id number] [facility] ing:POLAB3 Repository 01/11/2018 [id number] Ambulatory [facility] ing:MRI Repository 01/08/2018/01/09/20 [id number] Emergency [address] ing:ED Repository 12/20/2017/12/21/19 [id number] Ambulatory BMSBuilding:B [place] [address] [facility] Repository 12/20/2017 [id number] Ambulatory BMSBuilding:B [place] [facility] Repository 11/04/2017 [id number] [facility] ing:POLAB3 Repository 08/20/2017 [id number] [facility] ing:LAB Repository 08/19/2017 [id number] Ambulatory [facility] Repository 08/09/2017 [id number] Ambulatory [facility] ing:POLAB3 Repository 07/29/2017 [id number] Ambulatory [facility] ing:POLAB3 Repository 07/14/2017/07/16/19 [id number] Yovanny Dempsey Inpatient [address] ing:CB5Rtja: Repository SL086Ykp: 1 07/01/2017/07/16/19 [id number] Ambulatory BMSBuilding:[place] Repository 05/17/2017 [id number] Ambulatory [facility] Hospital ing:POLAB3 Repository 05/11/2017 [id number] Ambulatory [facility] ing:CT Repository 05/06/2017 [id number] Ambulatory [facility] ing:NM Repository 04/29/2017 [id number] Ambulatory [facility] ing:POLAB3 Repository 04/19/2017 [id number] Ambulatory [facility] ing:LABSPEC Repository PAYERS PAYERS ENCOUNTER GUARANTOR PAYER SUBSCRIBER SOURCE 03/14/2018 FARHANA R Primary FARHANA R [place] [id number] Insurance[facility] [id number], [place] Number: Repository [id number]: [phone] [id number] [phone] () Date:2018-03-14 03/14/2018 Secondary FARHANA R [place] Insurance:[facility]: [facility] [id number] Hospital Number: Repository [id number] Date:3379-05-96[address] [address]GM: 03/14/2018 Tertiary NOT GIVENUNK [place] Insurance:SELF PAY [facility] Number: Effective Repository Date:2018-03-14 03/09/2018 FARHANA R Primary FARHANA R [place] [id number] Insurance:MEDICARE MCCONNELLDOB: Community [place] [facility] [id number], [place] Number: Repository [id number]: 330 [id number] [phone] (HP) Date:2018-02-24 03/09/2018 Secondary FARHANA R [place] Insurance:MEDICAL MCCONNELLDOB: [facility] [id number] Hospital Number: Repository [id number] Date:8709-14-57CU[address] [address]XE: 03/09/2018 Tertiary NOT GIVENUNK [place] Insurance:SELF PAY [facility] Number: Effective Repository Date:2018-02-24 02/03/2018 FARHANA R Primary FARHANA R [place] [id number] Insurance:MEDICARE MCCON[facility]LLDOB: [facility] [id number], [place] Number: Repository [id number]: 330 [id number] () Date:2018-02-03 02/03/2018 Secondary FARHANA R [place] Insurance:MEDICAL MCCONNELLDOB: [facility] [id number] Hospital Number: Repository [id number] Date:0630-97-87LJ[address] [address]GI: 02/03/2018 Tertiary NOT GIVENUNK [place] Insurance:SELF PAY [facility] Number: Effective Repository Date:2018-02-03 01/11/2018 FARHANA R Primary FARHANA R [place] [id number] Insurance:MEDICARE MCCONNELLDOB: [facility] [id number], [place] Number: Repository [id number]: 330 [id number] [phone] (HP) Date:2018-01-06 01/11/2018 Secondary FARHANA R [place] Insurance:MEDICAL MCCONNELLDOB: [facility] [id number] Hospital Number: Repository [id number] Date:6554-99-86RY[address] [address]WY: 01/11/2018 Tertiary NOT GIVENUNK [place] Insurance:SELF PAY [facility] Effective Repository Date:2018-01-06 01/08/2018 FARHANA R Primary FARHANA R [place] [id number] Insurance:MEDICARE MCCONNELLDOB: Community [place] [facility] [id number], [place] Number: Repository [id number]: [phone] [id number] [phone] () Date:2018-01-08 01/08/2018 Secondary FARHANA R [place] Insurance:MEDICAL MCCONNELLDOB: [facility] [id number] Hospital Number: Repository [id number] Date:4099-67-14SX[address] [address]KQ: 01/08/2018 Tertiary NOT GIVENUNK [place] Insurance:SELF PAY [facility] Number: Effective Repository Date:2018-01-08 12/20/2017 FARHANA R Primary FARHANA R [place] [id number] Insurance:MEDICARE MCCONNELLDOB: Community [place] [facility] [id number], [place] Number: Repository [id number]: [phone] [id number] [phone] () Date:2017-02-05 12/20/2017 Secondary FARHANA R [place] Insurance:MEDICAL MCCONNELLDOB: [facility] [id number] Hospital Number: Repository [id number] Date:7962-06-50LG[address] [address]EK: 12/20/2017 Tertiary NOT GIVENUNK [place] Insurance:SELF PAY [facility] Number: Effective Repository Date:2017-12-20 12/20/2017 Farhana R Primary Farhana R Danny [id number] Insurance:MEDICARE McconnellDOB: Community [place] [facility] [id number], [place] Number: Repository [id number]: 330 [id number] [phone] () Date:2017-12-20 12/20/2017 Secondary Farhana R [place] Insurance:MEDICAL McconnellDOB: [facility] [id number] Hospital Number: Repository [id number] Date:1407-16-79AM[address] [address]VP: 12/20/2017 Tertiary NOT GIVENUNK [place] Insurance:SELF PAY [facility] Number: Effective Repository Date:2017-12-20 11/04/2017 Farhana R Primary Farhana R [place] [id number] Insurance:MEDICARE McconnellDOB: Community [place] [facility] [id number], [place] Number: Repository [id number]: 330 [id number] [phone] () Date:2017-11-04 11/04/2017 Secondary Farhana R Danny Insurance:MEDICAL McconnellDOB: [facility] [id number] [facility] Number: Repository [id number] Date:7262-22-99[address] [place] [address]TJ: 11/04/2017 Tertiary NOT GIVENUNK [place] Insurance:SELF PAY [facility] Number: Effective Repository Date:2017-11-04 08/20/2017 Farhana R Primary Farhana R Danny [id number] Insurance:MEDICARE McconnellDOB: Community [place] [facility] [id number] Number: Repository [id number]: 330 [id number] [phone] () Date:2017-08-20 08/20/2017 Secondary Farhana R [place] Insurance:MEDICAL McconnellDOB: [facility] [id number] Hospital Number: Repository [id number] Date:6576-67-03ZM [address] [place] [address]FO: 08/20/2017 Tertiary NOT GIVENUNK [place] Insurance:SELF PAY [facility] Effective Rep[facility] Date:2017-08-20 08/09/2017 Farhana R Primary Farhana R Danny [id number] Insurance:MEDICARE McconnellDOB: Community [place] [facility] [id number] Number: Repository [id number]: 330 [id number] [phone] () Date:2017-08-09 08/09/2017 Secondary Farhana R [place] Insurance:MEDICAL McconnellDOB: [facility] [id number] Hospital Number: Repository [id number] Date:[id number] [address]EU: 08/09/2017 Tertiary NOT GIVENUNK [place] Insurance:SELF PAY [facility] Effective Repository Date:2017-08-09 07/29/2017 Farhana R Primary Farhana R [place] [id number] Insurance:MEDICARE McconnellDOB: Community [place] [facility] [id number] Number: Repository [id number]: 330 [id number] [phone] () Date:2017-07-29 07/29/2017 Secondary Farhana R [place] Insurance:MEDICAL McconnellDOB: [facility] [id number] Hospital Number: Repository [id number] Date:8365-57-08RN[address] [address]TW: 07/29/2017 Tertiary NOT GIVENUNK Danny Insurance:SELF PAY [facility] Effective Repository Date:2017-07-29 07/14/2017 Farhana R Primary Farhana R Danny [id number] Insurance:MEDICARE McconnellDOB: Community [place] [facility] [id number] Number: Repository [id number]: ([phone]) [id number] [phone] () Date:2017-06-14 07/14/2017 Secondary Farahna R Danny Insurance:MEDICAL McconnellDOB: [facility] [id number] Hospital Number: Repository [id number] Date:[id number] [address]JM: 07/14/2017 Tertiary NOT GIVENUNK [place] Insurance:SELF PAY [facility] Number: Effective Repository Date:2017-06-14 07/01/2017 Farhana R Primary Farhana R Danny [id number] Insurance:MEDICARE McconnellDOB: Community [place] [facility] [id number] Number: Repository [id number]: 330 [id number] [phone] () Date:2017-06-14 07/01/2017 Secondary Farhana R [place] Insurance:MEDICAL McconnellDOB: [facility] [id number] Hospital Number: Repository [id number] Date:9111-22-86SD[address] [address]BJ: 07/01/2017 Tertiary NOT GIVENUNK [place] Insurance:SELF PAY [facility] Number: Effective Repository Date:2017-07-01 05/17/2017 Farhana R Primary Farhana R [place] [id number] Insurance:MEDICARE McconnellDOB: Community [place] [facility] [id number] Number: Repository [id number]: 330 [id number] [phone] () Date:2017-05-17 05/17/2017 Secondary Farhana R Danny Insurance:MEDICAL McconnellDOB: [facility] [id number] Hospital Number: Repository [id number] Date:7224-97-06ZM[address] [address]RN: 05/17/2017 Tertiary NOT GIVENUNK [place] Insurance:SELF PAY [facility] Number: Effective Repository Date:2017-05-17 05/11/2017 Farhana R Primary Farhana R [place] [id number] Insurance:MEDICARE McconnellDOB: Community [place] [facility] [id number] Number: Repository [id number]: 330 [id number] [phone] () Date:2017-05-04 05/11/2017 Secondary Farhana R Danny Insurance:MEDICAL McconnellDOB: [facility] [id number] Hospital Number: Repository [id number] Date:3862-11-41NX[address] [address]SW: 05/11/2017 Tertiary NOT GIVENUNK [place] Insurance:SELF PAY [facility] Number: Effective Repository Date:2017-05-04 05/06/2017 Farhana R Primary Farhana R [place] [id number] Insurance:MEDICARE McconnellDOB: Community [place] [facility] [id number] Number[place] Repository [id number]: 330 [id number] [phone] () Date:2017-05-04 05/06/2017 Secondary Farhana R [place] Insurance:MEDICAL McconnellDOB: [facility] [id number] Hospital Number: Repository [id number] Date:9373-23-68WU[address] [address]HK: 05/06/2017 Tertiary NOT GIVENUNK [place] Insurance:SELF PAY [facility] Number: Effective Repository Date:2017-05-04 04/29/2017 Farhana R Primary Farhana R [place] [id number] Insurance:MEDICARE McconnellDOB: Community [place] [facility] [id number] Number[place] Repository [id number]: 330 [id number] [phone] () Date:2017-04-29 04/29/2017 Secondary Farhana R [place] Insurance:MEDICAL McconnellDOB: [place] [id number] Hospital Number: Repository [id number] Date:6660-32-24[address] [address]BB: 04/29/2017 Tertiary NOT GIVENUNK [place] Insurance:SELF PAY [facility] Number: Effective Repository Date:2017-04-29 04/19/2017 Farhana R Primary Farhana R [place] [id number] [facility] [id number] Number[place] Repository [id number]: ([phone] [id number] [phone] () Date:2017-04-19 04/19/2017 Secondary Farhana R Danny Insurance:[facility]ICAL [facility] [id number] Hospital Number: Repository [id number] Date:5343-55-78YB [facility] [address] [place] [address]LS: 04/19/2017 Tertiary NOT GIVENUNK [place] Insurance:SELF PAY [facility] Number: Effective Repository Date:2017-04-19
== END ==
PROVIDERS: Family Provider Family Medicine Geriatric Medicine; PCP Family Medicine Geriatric Medicine; Visit Provider Family Medicine Geriatric Medicine
DX: E11.9 Type 2 diabetes mellitus without complications (principal); E78.49 Other hyperlipidemia
CPT/HCPCS: 36415; 80053; 80061; 83036; 84443; 85025

== ENCOUNTER → 2018-03-09 12:37 | Outpatient (CLI) | payer MEDICARE, OTHER, SELFPAY ==
--- NOTE | 2018-03-09 13:06 | CDU_ITS ---
Reason For Study: CAROTID ARTERY STENOSIS Rt. Velocities/BP Lt. Velocities/BP Prox CCA 152/27 cm/sec. Prox CCA 120/24 cm/sec. Mid CCA 131/24 cm/sec. Mid CCA 123/34 cm/sec. Dist CCA 94/20 cm/sec. Dist CCA 166/37 cm/sec. Prox ICA 120/25 cm/sec. Prox ICA 108/25 cm/sec. Mid ICA 112/24 cm/sec. Mid ICA 109/24 cm/sec. Dist ICA 85/27 cm/sec. Dist ICA 85/31 cm/sec. Rt. ICA/CCA = .8. Lt. ICA/CCA = .9. Prox ECA 140/30 cm/sec. Prox ECA 169/29 cm/sec. Rt. Vert. 32/11 cm/sec. Lt. Vert. 37/13 cm/sec. Right Extracranial There is heterogeneous, smooth atherosclerotic plaque noted in the right common carotid artery. There is heterogeneous, irregular atherosclerotic plaque noted in the right internal carotid artery. There is heterogeneous, irregular atherosclerotic plaque noted in the right external carotid artery. Antegrade flow is noted in the right vertebral artery. Left Extracranial There is heterogeneous, smooth atherosclerotic plaque noted in the left common carotid artery. There is heterogeneous, irregular atherosclerotic plaque noted in the left internal carotid artery. There is heterogeneous, irregular atherosclerotic plaque noted in the left external carotid artery. Antegrade flow is noted in the left vertebral artery. Procedure Carotid Duplex [id number]. Exam performed in department. Interpretation Summary Mild (<50%) stenosis right extracranial internal carotid. Mild (<50%) stenosis left extracranial internal carotid. There is plaque in the distal left common carotid artery which appears to approach 50% stenosis by snow-scale imaging. Flow within the vertebral arteries is antegrade bilaterally. Ordering Physician: Fredis Moon Referring Physician: Fredis Moon Chi Performed By: Clarisse Delvalle, RDCS, RVT
[2018-03-09 13:29] LABS: Hematocrit 42.9 % (40-54); Mean Corp Hgb Conc 32.6 g/gl (32-36); Mean Corpuscular Hgb 28.5 pg (27.0-32.0); Mean Corpuscular Volume 87.4 fL (80-94); Mean Platelet Vol. 9.4 fl (6.2-12.0); Platelet Count 164 K/mm3 (150-450); RBC Distribution Width CV 13.8 % (11.6-14.6); RBC Distribution Width SD 43.9 fl (35.1-43.9); Red Blood Count 4.91 M/mm3 (4.6-6.2); White Blood Count 5.9 K/mm3 (4.4-11.0)
[2018-03-09 13:30] LABS: Scan Indicated on CBC? Y/N NO
[2018-03-09 13:57] LABS: Anion Gap 8 (5-15); BUN 27 mg/dL (7-18); BUN/Creat Ratio 23.7 RATIO (10-20); Calcium,Total 9.1 mg/dL (8.5-10.1); Chloride 104 mmol/L (98-107); Creatinine, Serum 1.14 mg/dL (0.70-1.30); EST Glomerular Filtration Rate 66 mL/min (>60); Est Glom Filt Rate - Afr Amer 80 mL/min (>60); Glucose 141 mg/dL (74-106); Potassium 4.1 mmol/L (3.5-5.1); Sodium Level 136 mmol/L (136-145)
--- OUTSIDE RECORDS SUMMARY | 2018-05-14 08:49 | XMS RPT_ITS ---
:1940 Author Organization OHIP Support Name Relationship Address Phone CELLAR, RADHA Unavailable Unavailable + [place] [phone] CAMERON, OLIVE Unavailable [address] + [place] [address] R Unavailable Unavailable Unavailable CELLAR, RADHA Unavailable Unavailable + [place] [phone] CAMERON, OLIVE Unavailable [address] + [place] [address] R Unavailable Unavailable Unavailable CELLAR, RADHA Unavailable Unavailable + [place] [phone] CAMERON, OLIVE Unavailable [address] + [place] [address] R Unavailable Unavailable Unavailable CELLAR, RADHA Unavailable Unavailable + [place] [phone] CAMERON, OLIVE Unavailable [address] + [place] [address] R Unavailable Unavailable Unavailable CELLAR, RADHA Unavailable Unavailable + [place] [phone] CAMERON, OLIVE Unavailable [address] + [place] [address] R Unavailable Unavailable Unavailable CELLAR, RADHA Unavailable . + ., [place] . CAMERON, OLIVE Unavailable [address] + [place] [address] R Unavailable Unavailable Unavailable CAMERON, OLIVE Unavailable [address] + [place] [address] R Unavailable Unavailable Unavailable CAMERON, OLIVE Unavailable [address] + [place] [address] R Unavailable Unavailable Unavailable CAMERON, OLIVE Unavailable [address] + [place] [address] R Unavailable Unavailable Unavailable CAMERON, OLIVE Unavailable [address] [phone] [place] [address] R Unavailable Unavailable Unavailable CAMERON, OLIVE Unavailable [address] + [place] [address] R Unavailable Unavailable Unavailable CAMERON, OLIVE Unavailable [address] [phone] [place] [address] R Unavailable Unavailable Unavailable CAMERON, OLIVE Unavailable [address] + [place] [address] R Unavailable Unavailable Unavailable CAMERON, OLIVE Unavailable [address] [phone] [place] [address] R Unavailable Unavailable Unavailable CAMERON, OLIVE Unavailable [address] [phone] [place] [address] R Unavailable Unavailable Unavailable CAMERON, OLIVE Unavailable [address] [phone] [place] [address] R Unavailable Unavailable Unavailable CAMERON, OLIVE Unavailable [address] [phone] [place] [address] R Unavailable Unavailable Unavailable CAMERON, OLIVE Unavailable [address] [phone] [place] [address] R Unavailable Unavailable Unavailable Care Team Providers Name Role Phone DAVID LOOMIS Attending Unavailable VERA AKERS Referring Unavailable Red, Fredis Chi Attending Unavailable Red, Fredis Chi Primary Care Unavailable Red, Fredis Chi Attending Unavailable Red, Fredis Chi Referring Unavailable Red, Fredis Chi Primary Care Unavailable Yovanny Dempsey Consulting Unavailable Yovanny Dempsey Attending Unavailable Yovanny Dempsey Referring Unavailable Red, Fredis Chi Primary Care Unavailable KeYovanny Attending Unavailable Red, Fredis Chi Primary Care Unavailable Yovanny Dempsey Referring Unavailable Red, Fredis Chi Attending Unavailable Red, Fredis Chi Primary Care Unavailable Yovanny Dempesy Attending Unavailable Red, Fredis Chi Primary Care Unavailable Yovanny Dempsey Referring Unavailable KeYovanny weber Attending Unavailable Red, Fredis Chi Primary Care [...] Unknown R97.20 - Elevated KeYovanny weber [facility] prostate specific [facility] antigen [PSA] / Hospital R97.20(ICD-10) Repository 01/08/2018 Unknown R52 - Pain, Jwayyed, Active [place] unspecified / [facility] R52(ICD-10) Hospital Repository 12/20/2017 Unknown 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 Austin 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 / I25.10(ICD-10) 12/20/2017 Unknown C61 - Malignant Red, Fredis Chi [facility] neoplasm of prostate Community / C61(ICD-10) Hospital Repository 08/09/2017 Unknown E11.9 - Type 2 Red, Fredis Chi [facility] diabetes mellitus Community without complications Hospital / E11.9(ICD-10) Repository 08/09/2017 Unknown I10 - Essential Red, Fredis Chi Active [place] (primary) Community hypertension / Hospital I10(ICD-10) Repository 08/09/2017 Unknown E55.9 - Vitamin D Red, Fredis Chi Active [facility] deficiency, Community unspecified / Hospital E55.9(ICD-10) Repository 08/19/2017 Unknown D64.9 - Anemia, Red, Fredis Chi [facility] unspecified / Community D64.9(ICD-10) Hospital Repository 08/10/2017 Unknown R00.1 - Bradycardia, [place], Josias Active [facility] unspecified / Community R00.1(ICD-10) Hospital Repository 04/29/2017 Unknown E78.4 - Other Fredis Greenberg Chi Active [place] hyperlipidemia / Community E78.4(ICD-10) Hospital Repository PROCEDURES PROCEDURES No Procedure Records FoundRESULTS RESULTS PSA,TOTAL- DIAGNOSTIC Collected: 03/14/2018 Status: F Source: [place] 11:06 AM [facility] REPOSITORY TYPE CODE TESTS RESULT OUT OF RANGE REFERENCE UNITS LAB L501.9940 0.0-4.0 ng/mL PSA, Normal DIAGNOSTIC < 0.01 Result Comment: This test was performed using the TPSA assay method for the iNeed chemistry system. Values obtained with different assay methods cannot be used interchangably. When changing PSA assays in the course of monitoring a patient, additional sequential testing should be carried out to confirm baseline values. Performed By: #### L501.9940 #### [facility] [address] [facility] [place], [address] CAROTID DUPLEX Observed: 03/10/2018 Status: F Source: [place] ULTRASOUND 11:20 AM [facility] REPOSITORY [facility] Cardiovascular Services [address] [place] [address] Carotid Duplex Ultrasound 03/09/18 1315 MR#: [id number] Acct: [id number] Name: FARHANA CAMERON Rep #: [id number] : 1940 77 From: Jey Freitas MD Attending Dr: Fredis Greenberg MD, Chi Status: REG CLI Ordering Dr: Fredis Greenberg MD Date: 03/09/18 Location: [facility] Sex: M C Admitted: Reason For Study: [...] the left vertebral artery. Procedure Carotid Duplex 33035. Exam performed in department. Interpretation Summary Mild [...] Dictated: 03/09/18 1315 Date Transcribed: 03/10/18 111 Chief Business Development Officer: Signed CBC-COMPLETE BLOOD CNT Collected: 03/09/2018 Status: F Source: [place] NO DIFF 12:41 PM [facility] REPOSITORY TYPE CODE TESTS RESULT OUT OF [...] MPV 9.4 Performed By: #### L100.0500 #### [facility] [place], [address] BASIC METABOLIC Collected: 03/09/2018 Status: F Source: [place] PROFILE (BMP) 12:41 PM [facility] REPOSITORY TYPE CODE TESTS RESULT OUT OF [...] GAP 8 Performed By: #### L500.2500 #### [facility] [address] [place], [address] TESTOSTERONE, SERUM TOTAL Collected: 03/09/2018 Status: F Source: [place] 12:41 PM [facility] REPOSITORY TYPE CODE TESTS RESULT OUT OF [...] CHANGED 02/10/2017 Performed By: #### L509.3000 #### [facility] [address] [facility] [place], [address] CBC W/DIFF, AUTOMATED Collected: 02/03/2018 Status: F Source: [place] 3:28 PM [facility] REPOSITORY TYPE CODE TESTS RESULT OUT OF [...] Lymph 1.35 Performed By: #### L100.0100 #### [facility] [address] [place], [place], [address] HEMOGLOBIN A1C Collected: 02/03/2018 Status: F Source: [place] 3:28 PM [facility] REPOSITORY TYPE CODE TESTS RESULT OUT OF RANGE REFERENCE UNITS LAB L501.9985 4.2-6.3 % High HGB A1C 8.3 Performed By: #### L501.9985 #### [facility] [address] [place], [address] COMPREHENSIVE METABOLIC Collected: 02/03/2018 Status: F Source: [facility] 3:28 PM [facility] REPOSITORY TYPE CODE TESTS RESULT OUT OF [...] Performed By: #### L500.4050, L500.4100, L501.9520 #### [facility] [address] [place], [address] LIPID PROFILE Collected: 02/03/2018 Status: F Source: [place] 3:28 PM [facility] REPOSITORY TYPE CODE TESTS RESULT OUT OF [...] Performed By: #### L500.4050, L500.4100, L501.9520 #### [facility] [address] [facility] [place], [address] THYROID STIM HORMONE Collected: 02/03/2018 Status: F Source: [place] (TSH) 3:28 PM [facility] REPOSITORY TYPE CODE TESTS RESULT OUT OF RANGE REFERENCE UNITS LAB L501.9520 0.358-3.74 uIU/mL Normal TSH 1.90 Performed By: #### L500.4050, L500.4100, L501.9520 #### [facility] [address] [facility] [place], [address] CREATININE FINGERSTICK Collected: 01/11/2018 Status: F Source: [place] 1:18 PM [facility] REPOSITORY TYPE CODE TESTS RESULT OUT OF RANGE REFERENCE UNITS LAB L9100.0210 0.70-1.30 mg/dL Normal CREATININE WB 1.1 LAB L9100.0220 >60 mL/min EGFR WB Normal > 60.0000 Performed By: #### L9100.0200 #### [facility] Point of Care [address] [address] BRAIN W/WO CONTRAST Observed: 01/11/2018 Status: F Source: [place] 12:58 PM [facility] REPOSITORY [facility] Imaging Services [address] [place] [address] Brain W/WO Contrast MR#: [id number] Acct: [id number] Name: FARHANA CAMERON Rep #: [id number] : 1940 M 77 From: Barron Reynolds MD PCP: Fredis Greenberg MD, Chi Status: REG CLI Study: Brain W/WO Contrast Date of Exam: 01/11/18 Exam# [id number] Ordering Dr: Sandeep Foy MD STUDY: MRI [...] CC: Sandeep Foy MD; Fredis Greenberg MD Chief Business Development Officer: Signed EMERGENCY DEPARTMENT Observed: 01/08/2018 Status: F Source: [place] SUMMARY 2:34 PM [facility] REPOSITORY [facility] Medical Records Department [address] [place] [address] Emergency Department Summary 01/08/18 0913 MR#: [id number] Acct: [id number] Name: FARHANA CAMERON Rep #: [id number] : 1940 77 From: Jose Fay MD [...] anything for pain, I will provide him [place] 4 tablets to use at bedtime he is referred to [facility] and to follow- up and return for change in symptoms Treatment Plan: [] Disposition: [] Home stable Impression: [] Fall left hip pain, DJD both hips This note was generated with [employer] dictation software. It may contain incorrect words, [...] problems, contact your Primary Care Provider. Call [facility] ([phone]) or report to the closest Emergency Room. Call 911 if necessary. 01/08/18 1434 <Electronically signed by Jose Fay MD> Date Jose Fay MD Cosigner Signature (If Indicated): Date CC: Fredis Greenberg MD DISCHARGE INSTRUCTION Observed: 01/08/2018 Status: F Source: [place] 10:02 AM [facility] REPOSITORY [facility] Medical Records Department [address] [place] [address] Discharge Instruction 01/08/18 1000 MR#: [id number] Acct: [id number] Name: FARHANA CAMERON Rep #: [id number] : 1940 77 From: Jose Fay MD PCP: Fredis Greenberg MD, Chi Status: REG ER ED Disposition - Plan for ED Patient: Chief Complaint: Lower Extremity Injury Instructions: ED Sprain Hip Prescriptions: Hydrocodone Bitart/Apap 5-325 [[place] 5MG-325MG] 1 tab PO QHS 2 Days #7 tab Referrals: Fredis Greenberg Chi, MD [Primary Care Provider] - What to do if you have Problems For any increased pain, shortness of breath, bleeding, nausea or vomiting, chest pain, or any unexpected problems, contact your Primary Care Provider. Call [facility] ([phone]) or report to the closest Emergency Room. Call 911 if necessary. 01/08/18 1002 <Electronically signed by Jose Fay MD> Date Jose Fay MD Cosigner Signature (If Indicated): Date CC: Fredis Greenberg MD HIP, UNI W/ PELVIS Observed: 01/08/2018 Status: F Source: [place] 2-3 VIEWS 9:10 AM [facility] REPOSITORY [facility] Imaging Services [address] [place] [address] HIP, UNI W/ Pelvis 2-3 Views MR#: [id number] Acct: [id number] Name: FARHANA CAMERON Rep #: [id number] : 1940 77 From: Ariella Gil MD PCP: Fredis Greenberg MD, Chi Status: REG ER Study: HIP, UNI W/ Pelvis 2-3 Views Date of Exam: 01/08/18 Exam# [id number] Ordering Dr: Jose Fay MD STUDY: X-RAY [...] CC: MD Joe Fay; Fredis Greenberg MD Chief Business Development Officer: Signed CARDIOLOGY VISIT Observed: 12/20/2017 Status: F Source: [place] REPORT 2:29 PM [facility] REPOSITORY [facility] [address] [place] [address] OFFICE VISIT Date of Service: 12/20/17 MR#: [id number] Acct: [id number] Name: FARHANA CAMERON Rep #: [id number] : 1940 Provider: Josias Austin MD Age/Sex: 77/M Location: [facility] Status: Signed HPI HPI Details: FARHANA CAMERON, [...] with poor R wave progression. An anterior [place] of indeterminate age could not be excluded. [...] TOPICAL DAILY PRN 12/20/17 [History Confirmed 12/20/17] [facility] Medical History Hyperlipemia (Chronic) Essential hypertension (Chronic) Syncope (Acute) Wide-complex tachycardia (Acute) Premature ventricular contraction (Acute) Premature atrial contractions (Acute) Sinus bradycardia (Acute) Atherosclerotic heart disease of [place] coronary artery without angina pectoris (Chronic) Diabetes [...] an LVEF of 62%. Cardiac catheterization: 06/24/2001: [facility] FINAL IMPRESSION: 1. Elevated left ventricular end [...] EPISODES OF BORDERLINE 1ST DEGREE AV BLOCK- NV.22-.24 MINIMUM HR 445PM AT 501:53 AM WHILE [...] arteries. Assessment AND Plan 1. Atherosclerosis of [place] coronary artery of [place] heart without angina pectoris I25.10 Mild Plan [...] Code Off vis,est,level 4 Diagnoses Atherosclerosis of [place] coronary artery of [place] heart without angina pectoris I25.10 [place] vs. transplanted heart: [place] heart Premature atrial beat I49.1 Premature ventricular beat I49.3 Sinus bradycardia R00.1 Wide-complex tachycardia I47.2 Hyperlipidemia E78.5 Essential hypertension I10 Syncope R55 Coding Level of Care Code Off vis,est,level 4 Diagnoses Atherosclerosis of [place] coronary artery of [place] heart without angina pectoris I25.10 [place] vs. transplanted heart: [place] heart Premature atrial beat I49.1 Premature ventricular beat I49.3 Sinus bradycardia R00.1 Wide-complex tachycardia I47.2 Hyperlipidemia E78.5 Essential hypertension I10 Syncope R55 12/20/17 1429 <Electronically signed by Josias Austin MD> Date Josias Austin MD Cosigner Signature: Date (if applicable) CC: Fredis Greenberg MD 12 LEAD EKG PERFORMED Observed: 12/20/2017 Status: F Source: [place] [facility] 1:48 PM [facility] REPOSITORY [facility] [address] [place] [address] 12 Lead EKG performed by [facility] 12/20/17 1348 MR#: [id number] Acct: [id number] Name: FARHANA CAMERON Rep #: [id number] : 1940 77 From: Josias Austin MD Attending Dr: Josias Austin MD Status: DEP AMB Ordering Dr: Josias Austin MD Date: 12/20/17 Location: [facility] Sex: M C Admitted: BMS/12 Lead EKG performed by [facility] ECG Report Interpretation Sinus rhythmLeft axis deviationPossible Left anterior fascicular blockPoor R wave progressionAnterior [place], age undetermined, cannot be excludedABNORMAL Electronically signed on 12/20/2017 at 15:56 by Josias Austin Software Version 8610 12/20/17 1601 Date Josias Austin MD CC: Fredis Greenberg MD Date Dictated: 12/20/17 1348 Date Transcribed: 12/20/171347 Chief Business Development Officer: PM Signed PSA,TOTAL- DIAGNOSTIC Collected: 11/04/2017 Status: F Source: [place] 2:48 PM [facility] REPOSITORY TYPE CODE TESTS RESULT OUT OF RANGE REFERENCE UNITS LAB L501.9940 0.0-4.0 ng/mL PSA, Normal DIAGNOSTIC < 0.01 Result Comment: This test was performed using the TPSA assay method for the Glass system. Values obtained with different assay methods cannot be used interchangably. When changing PSA assays in the course of monitoring a patient, additional sequential testing should be carried out to confirm baseline values. Performed By: #### L501.9940 #### [facility] [address] [place], [address] PSA,TOTAL- DIAGNOSTIC Collected: 08/20/2017 Status: F Source: [place] 11:42 AM [facility] REPOSITORY TYPE CODE TESTS RESULT OUT OF RANGE REFERENCE UNITS LAB L501.9940 0.0-4.0 ng/mL PSA, Normal DIAGNOSTIC < 0.01 Result Comment: This test was performed using the TPSA assay method for the iNeed chemistry system. Values obtained with different assay methods cannot be used interchangably. When changing PSA assays in the course of monitoring a patient, additional sequential testing should be carried out to confirm baseline values. Performed By: #### L501.9940 #### [facility] [address] [place], [address] CNOV Observed: 08/19/2017 Status: COMPLETED Source: [place] 2:30 PM [facility] REPOSITORY Office Visit (UROLEU) FARHANA CAMERON ([id number]) 1940 M Date Time Provider Department 08/19/17 2:30 PM DAVID LOOMIS During your visit today, we recorded the following information about you: Weight Height 74.8 kg 1.695 m Frances Nicholas Ma 08/19/2017 3:10 PM Signed Wrong chart. Referring Provider: VERA AKERS [[id number]] Allergies As of Date: 08/19/2017 (Not on [...] 08/24/17 ERRONEOUSENC Observed: 08/19/2017 Status: COMPLETED Source: [place] 2:30 PM [facility] REPOSITORY [id number] Farhana Cameron 1940 M * Clinical document posted in Error * Encounter Type Conversion History User Instant Changed From Changed To CHELSEY BURT Sep 07, 2017 10* Office Visit Erroneous* FRANCES NICHOLAS MA Brianne Aug 19, 2017 2* Appointment Office Vi* DOWNTIME REPORT Observed: 08/12/2017 Status: F Source: [place] 1:29 PM [facility] REPOSITORY [facility] Medical Records Department [address] [place] [address] Downtime Report MR#: [id number] Acct: [id number] Name: FARHANA CAMERON R Rep #: [id number] : 1940 77 From: Joel Gil PCP: Red SCHMITT,Fredis Chi Status: REG CLI This patient was seen during an EMR downtime July 26, 2017 - August 02, 2017. This patient may have a combination of paper and electronic documentation or all paper documentation. All documentation is viewable within the e-chart portion of [facility] for each patient visit. CBC W/DIFF, AUTOMATED Collected: 08/09/2017 Status: F Source: [place] 3:12 PM [facility] REPOSITORY TYPE CODE TESTS RESULT OUT OF [...] Lymph 0.76 Performed By: #### L100.0100 #### [facility] [address] [place], [address] VITAMIN D,25 HYDROXY Collected: 08/09/2017 Status: F Source: [place] 3:12 PM [facility] REPOSITORY TYPE CODE TESTS RESULT OUT OF RANGE REFERENCE UNITS LAB L506.1000 29.95-100.01 ng/mL Normal Vitamin D 38.3 25-OH Result Comment: Vitamin D 25(OH) Status Range Deficiency <20 ng/mL (50nmol/L) Insuffciency 20 - 30 ng/mL (50 - 75 nmol/L) Sufficiency 30 - 100 ng/mL (75 - 250 nmol/L) Toxicity >100 ng/mL (>250 nmol/L) Performed By: #### L506.1000 #### [facility] [place], [address] COMPREHENSIVE METABOLIC Collected: 08/09/2017 Status: F Source: [place] [facility] 3:12 PM [facility] REPOSITORY TYPE CODE TESTS RESULT OUT OF [...] 8 Performed By: #### L500.4050, L501.9520 #### [facility] [address] [place], [address] THYROID STIM HORMONE Collected: 08/09/2017 Status: F Source: [place] (TSH) 3:12 PM [facility] REPOSITORY TYPE CODE TESTS RESULT OUT OF RANGE REFERENCE UNITS LAB L501.9520 0.358-3.74 uIU/mL Normal TSH 0.61 Performed By: #### L500.4050, L501.9520 #### [facility] [address] [place], [address] IRON+IRON BINDING Collected: 07/29/2017 Status: F Source: [place] CAPACITY 2:00 PM [facility] REPOSITORY Order Comment: RESULT(S) PREVIOUSLY REPORTED ON MANUAL REQUISITION DURING DOWNTIME. TYPE CODE TESTS RESULT OUT OF RANGE REFERENCE UNITS LAB L503.6075 250-450 ug/dL TIBC Normal 277 LAB L503.6150 65-175 ug/dL Low IRON 63 LAB L503.6250 15.0-55.0 % IRON Normal SATURATION 22.7 Performed By: #### L503.6030 #### [facility] [address] [place], [address] CBC W/DIFF, AUTOMATED Collected: 07/29/2017 Status: F Source: [place] 2:00 PM [facility] REPOSITORY Order Comment: RESULT(S) PREVIOUSLY REPORTED ON [...] Lymph 1.36 Performed By: #### L100.0100 #### [facility] [address] [place] [address], [id number] BEDSIDE GLUCOSE Collected: 07/15/2017 Status: F Source: [place] 8:19 AM [facility] REPOSITORY TYPE CODE TESTS RESULT OUT OF REFERENCE UNITS RANGE LAB L501.080 70-110 mg/dL High BEDSIDE GLU 150 Result Comment: MANAGEMENT OF PATIENT CARE PER NURSING PROTOCOL Performed By: #### L501.080 #### [facility] Point of Care [address] [facility] [place], [place] [address] CBC-COMPLETE BLOOD CNT Collected: 07/15/2017 Status: F Source: [place] NO DIFF 5:42 AM [facility] REPOSITORY TYPE CODE TESTS RESULT OUT OF [...] MPV 9.2 Performed By: #### L100.0500 #### [facility] [address] [place], [address] BASIC METABOLIC Collected: 07/15/2017 Status: F Source: [place] PROFILE (BMP) 5:42 AM [facility] REPOSITORY TYPE CODE TESTS RESULT OUT OF [...] GAP 9 Performed By: #### L500.2500 #### [facility] [address] [facility] [address] BEDSIDE GLUCOSE Collected: 07/14/2017 Status: F Source: [place] 5:07 PM [facility] REPOSITORY TYPE CODE TESTS RESULT OUT OF REFERENCE UNITS RANGE LAB L501.080 70-110 mg/dL High BEDSIDE GLU 202 Result Comment: MANAGEMENT OF PATIENT CARE PER NURSING PROTOCOL Performed By: #### L501.080 #### [facility] Point of Care [address] [facility] [place] [address] BEDSIDE GLUCOSE Collected: 07/14/2017 Status: F Source: [place] 12:47 PM [facility] REPOSITORY TYPE CODE TESTS RESULT OUT OF REFERENCE UNITS RANGE LAB L501.080 70-110 mg/dL High BEDSIDE GLU 166 Result Comment: MANAGEMENT OF PATIENT CARE PER NURSING PROTOCOL Performed By: #### L501.080 #### [facility] Point of Care [address] [place] [address] DISCHARGE INSTRUCTION Observed: 07/14/2017 Status: F Source: [place] 11:[address] [facility] Medical Records Department [address] [place] [address] Instructions for Home/Discharge Instructions 07/14/17 1148 MR#: [id number] Acct: [id number] Name: FARHANA CAMERON Joaquin Rep #: [id number] : 1940 77 From: Yovanny Dempsey MD [...] mg PO BID #20 cap 07/14/17 Hydrocodone/Acetaminophen [[place] 5-325 Tablet] 1 ea PO Q4H PRN PRN 5 Days #14 tab 07/14/17 The following prescriptions were given: Hydrocodone/Acetaminophen [[place] 5-325 Tablet] 1 ea PO Q4H PRN [...] 07/14/2017 Status: F Source: [place] 11:43 AM [facility] REPOSITORY [facility] Medical Records Department [address] [place] [address] Operative Report 07/14/17 1132 MR#: [id number] Acct: [id number] Name: FARHANA CAMERON Rep #: [id number] : 1940 77 From: Yovanny Dempsey MD PCP: Fredis Greenberg MD, Chi Status: ADM IN Y Location: [address] Report of Operation Date of Procedure: [...] 07/14/2017 Status: F Source: [place] 6:06 AM [facility] REPOSITORY TYPE CODE TESTS RESULT OUT OF RANGE REFERENCE UNITS LAB L501.080 70-110 mg/dL Normal BEDSIDE GLU 98 Result Comment: MANAGEMENT OF PATIENT CARE PER NURSING PROTOCOL Performed By: #### L501.080 #### [facility] [place] [address] PROSTATE RADICAL Observed: 07/14/2017 Status: F Source: [place] RESECTION 12:00 AM [facility] REPOSITORY Patient: FARHANA CAMERON : 1940 (77/M) Acct Num: [id number] Phys: Ke SCHMITT,Yovanny Kurtz Unit Num: [id number] Loc: MS2 [id number] Specimen: [id number] Received: 07/14/171536 Spec Type: PROSTATE TISSUES TISSUES: [...] basal portion of the prostate. Immunohistochemistry ( [id number]) supports the diagnosis of a minute focus [...] do not reveal any obvious mass lesion. [employer] sections are submitted in 18 cassettes as [...] 0.5 cm. No mass lesion is identified. [employer] sections are submitted in one cassette. / SJ:rg 07/15/17 TC:0 CPT: 74443, 13635 HEADER OPERATION: Laparoscopic robotic assisted radical prostatectomy [...] grade 3 Tertiary pattern not applicable Total Huntingdon score - 7 Tumor Quantitation: Proportion (%) [...] summary is in compliance with College of [employer] Pathology (CAP) Cancer Protocols Checklist and Canadian Joint Committee on Cancer (AJCC), Staging Manual, [...] on file> Performed By: #### PPROST #### [facility] [address] [place] [address]. [place], [address] IMMUNOHISTOCHEMISTRY Observed: 07/14/2017 Status: F Source: [place] 12:00 AM [facility] REPOSITORY Patient: FARHANA CAMERON : 1940 (77/M) Acct Num: [id number] Phys: Ke SCHMITT,Yovanny Kurtz Unit Num: [id number] Loc: MS2 [id number] Specimen: [id number] Received: 07/20/17 - 1125 Spec Type: IMMUNO TISSUES TISSUES: A. Prostate, NOS - BLOCK 3 SPECIMEN INFORMATION: Tissue Source: A - Prostate Clinical Info: Prostate cancer, elevated PSA Specimen Number: [id number] A3 CPT code: 49695, 80089 x2 METHODOLOGY: Deparaffinized sections of prefer/formalin-fixed tissue or PAP/DQ stained slides are incubated with monoclonal/polyclonal antibodies/oligonucleotide probes. Localization is made via biotin free immunoperoxidase method. Appropriate controls are performed and reacted as expected. Results on target cell population are indicated in the following table: RESULTS: ANTIBODY / CLONE RESULT Block A3 P40 (BC28) negative 34BE12 (34BE12) negative CK8 (01oojwZ91) positive These tests were developed and their performance characteristics determined by [facility]. They may not have been cleared or approved by the U.S. Food and Drug Administration. The FDA has determined that such clearance or approval is not necessary. INTERPRETATION: A. Prostate, radical prostatectomy: A minute focus of adenocarcinoma (block A3 ). This case has been reviewed in consultation with Dr. Rasheed who concurs with the above diagnosis. SJ:julia 07/22/17 PHYSICIAN AND INSTITUTION [place] [address] Signed Javy Diaz 07/22/17 <signature on file> Performed By: #### PIMM #### [facility] [address] [place] [address]. [place], [place], [address] 12 LEAD ELECTROCARDIOGRAM Observed: 07/02/2017 Status: F Source: [place] 1:50 PM [facility] REPOSITORY [facility] Cardiovascular Services [address] [place] [address] EKG - [facility] 07/01/17 1358 MR#: [id number] Acct: [id number] Name: FARHANA CAMERON Rep #: [id number] : 1940 77 From: Josias Austin MD Attending Dr: Yovanny Dempsey MD Status: PRE IN Ordering Dr: West Pfeiffer MD Date: 07/01/17 Location: [facility] Sex: M C Admitted: Test Reason : [...] Abnormal ECG Confirmed by NORMAN SCHMITT, JOSIAS ([id number]), medical transcription editor RAO GIL ([id number]) on 07/02/2017 1:50:00 PM Referred By: Yovanny Dempsey Confirmed By:JOSIAS AUSTIN MD 07/02/171349 Date Josias Austin MD CC: West Pfeiffer MD; Yovanny Dempsey MD; Fredis Greenberg MD Date Dictated: 07/01/171357 Date Transcribed: 07/01/171357 Chief Business Development Officer: Signed PSA,TOTAL- DIAGNOSTIC Collected: 07/01/2017 Status: F Source: [place] 3:05 PM [facility] REPOSITORY TYPE CODE TESTS RESULT OUT OF RANGE REFERENCE UNITS LAB L501.9940 0.0-4.0 ng/mL PSA, Normal DIAGNOSTIC 2.71 Result Comment: This test was performed using the TPSA assay method for the iNeed chemistry system. Values obtained with different assay methods cannot be used interchangably. When changing PSA assays in the course of monitoring a patient, additional sequential testing should be carried out to confirm baseline values. Performed By: #### L501.9940 #### [facility] [address] [place], [place], [address] PROTHROMBIN TIME W/INR Collected: 07/01/2017 Status: F Source: [place] 3:05 PM [facility] REPOSITORY TYPE CODE TESTS RESULT OUT OF RANGE REFERENCE UNITS LAB L300.4150 11.7-14.9 SECONDS Normal PROTIME 14.0 LAB L300.4200 Normal INR 1.1 Performed By: #### L300.3900, L300.4310 #### [facility] [address] [place], [address] PARTIAL THROMBOPLAST Collected: 07/01/2017 Status: F Source: [place] TIME 3:05 PM [facility] REPOSITORY TYPE CODE TESTS RESULT OUT OF RANGE REFERENCE UNITS LAB L300.4310 24.1-36.2 Seconds Normal PTT 33.2 Performed By: #### L300.3900, L300.4310 #### [facility] [address] [place], [address] LYME ANTIBODIES,W BLOT Collected: 05/17/2017 Status: F Source: [place] 12:09 PM [facility] REPOSITORY TYPE CODE TESTS RESULT OUT OF [...] are those recommended by CDC/ASTPHLD. p23=Osp C, b86=uivsvykyg Note: Sera from individuals with the following may cross react in the Lyme Western Blot assays: other spirochetal diseases (periodontal disease, leptospirosis, relapsing fever, yaws, and pinta); connective autoimmune (Rheumatoid Arthritis and Systemic Lupus Erythematosus and also individuals with Antinuclear Antibody); other infections (Durand Spotted Fever; Salomon-Armijo Virus, and Cytomegalovirus). Performed at: [facility] Lab[address] [id number] Celery Packer: Manuel Solomon MD, Phone: [phone] Performed By: #### L7000.5800 #### [facility] (refer to report for specific site) refer to report for address and phone number TISSUE BIOPSY Observed: 05/11/2017 Status: F Source: [place] 11:24 AM [facility] REPOSITORY Patient: FARHANA CAMERON : 1940 (77/M) Acct Num: [id number] Phys: Ke SCHMITT,Min Unit Num: [id number] Loc: CT Specimen: [id number] Received: 05/11/17 - 1548 Spec Type: Tissue Bx TISSUES TISSUES: Skin of forehead GROSS DESCRIPTION Received is one container labeled with the patient's name and not further designated. The specimen consists of a light valdes shaved biopsy of skin measuring 0.7 x 0.5 x 0.1 cm. The specimen is inked, bisected and totally submitted in one cassette. / AM:julia 05/12/17 TC:1 CPT: 43835 HEADER OPERATION: Not noted PRE-OP DIAGNOSIS: L81.9 TISSUE SUBMITTED: Forehead MICROSCOPIC DESCRIPTION Slides are reviewed. MICROSCOPIC DIAGNOSIS Forehead lesion, shave biopsy: Seborrheic keratosis. Actinic keratosis and solar elastosis. SJ:julia 05/13/17 Signed Javy Diaz 05/13/17 <signature on file> Performed By: #### PTISS #### [facility] [address] [place], [address] ABDOMEN/PELVIS W IV CONT Observed: 05/11/2017 Status: F Source: [place] ONLY 7:00 AM [facility] REPOSITORY [facility] Imaging Services [address] [place] [address] Abdomen/Pelvis W IV Cont ONLY MR#: [id number] Acct: [id number] Name: FARHANA CAMERON Rep #: [id number] : 1940 M 77 From: Fareed Beckham MD PCP: Red SCHMITT,Fredis Schaefer Status: REG CLI Study: Abdomen/Pelvis W IV Cont ONLY Date of Exam: 05/11/17 Exam# [id number] Ordering Dr: Yovanny Dempsey MD STUDY: CT [...] Fareed Beckham MD at 10:02 EDT Tel [phone], Service support , CC: Yovanny Dempsey MD; Fredis Greenberg MD Chief Business Development Officer: Signed BONE SCAN WHOLE Observed: 05/06/2017 Status: F Source: [place] BODY 7:31 AM [facility] REPOSITORY [facility] Imaging Services [address] [place] [address] Bone Scan Whole Body MR#: [id number] Acct: [id number] Name: FARHANA CAMERON Rep #: [id number] : 1940 M 77 From: Theo Santiago DO PCP: Red SCHMITT,Fredis Schaefer Status: REG CLI Study: Bone Scan Whole Body Date of Exam: 05/06/17 Exam# [id number] Ordering Dr: Yovanny Dempsey MD CLINICAL: 77-year-old male with reported [...] CC: Yovanny Dempsey MD; Fredis Greenberg MD Chief Business Development Officer: Signed HEMOGLOBIN A1C Collected: 05/04/2017 Status: F Source: [place] 3:14 PM [facility] REPOSITORY Order Comment: DR GREENBERG ADDED A1C TYPE CODE TESTS RESULT OUT OF RANGE REFERENCE UNITS LAB L501.9985 4.2-6.3 % High HGB A1C 7.5 Performed By: #### L501.9985 #### [facility] [address] [place], [place], [address] CBC W/DIFF, AUTOMATED Collected: 04/29/2017 Status: F Source: [place] 3:14 PM [facility] REPOSITORY TYPE CODE TESTS RESULT OUT OF [...] Lymph 1.58 Performed By: #### L100.0100 #### [facility] [place], [address] COMPREHENSIVE METABOLIC Collected: 04/29/2017 Status: F Source: [place] [facility] 3:14 PM [facility] REPOSITORY TYPE CODE TESTS RESULT OUT OF [...] Performed By: #### L500.4050, L500.4100, L501.9520 #### [facility] [address] [facility] [place], [place], [address] LIPID PROFILE Collected: 04/29/2017 Status: F Source: [place] 3:14 PM [facility] REPOSITORY TYPE CODE TESTS RESULT OUT OF [...] Performed By: #### L500.4050, L500.4100, L501.9520 #### [facility] [address] [facility] [place], [place], [address] THYROID STIM HORMONE Collected: 04/29/2017 Status: F Source: [place] (TSH) 3:14 PM [facility] REPOSITORY TYPE CODE TESTS RESULT OUT OF RANGE REFERENCE UNITS LAB L501.9520 0.358-3.74 uIU/mL Normal TSH 1.95 Performed By: #### L500.4050, L500.4100, L501.9520 #### [facility] [place], [address] PROSTATE BIOPSY Observed: 04/19/2017 Status: F Source: [place] BILATERAL 4:30 PM [facility] REPOSITORY Patient: FARHANA CAMERON : 1940 (77/M) Acct Num: [id number] Phys: Ke SCHMITT,Min Unit Num: [id number] Loc: LABSPEC Specimen: [id number] Received: 04/19/17 - 0 Spec Type: PROST BX TISSUES TISSUES: A. PROSTATE RIGHT B. PROSTATE RIGHT C. PROSTATE RIGHT D. PROSTATE LEFT E. PROSTATE LEFT F. PROSTATE LEFT ADDENDUM Addendum Number 1 An order for Oncotype testing was received from Dr. Dempsey. This necessitated case review, block and slide selection by pathologist at [facility]. Prostate Cancer Recurrence Score = 52 Results of the complete Oncotype testing ([employer] report) are viewable in EMR under: Reports - Pathology - Lab Pathology Report, Scanned. Addendum Signed Javy Diaz 05/21/17 <signature on file> COMMENT E. Immunohistochemistry ([id number]) supports the above diagnosis. GROSS DESCRIPTION A [...] Left prostate, mid, core biopsy: Prostatic adenocarcinoma: Huntingdon grade: 3+4=7 Number of cores involved: 2 out of 2 Proportion of tissue involved: 20% Perineural invasion: Not identified. Greatest tumor length: 0.3 cm See comment. F. Left prostate, base, core biopsy: Prostatic adenocarcinoma: Huntingdon grade: 3+4=7 Number of cores involved: 1 out of 1 Proportion of tissue involved: ~60% Perineural invasion: Not identified. Greatest tumor length: 0.5 cm Focal atrophy. : 04/21/17 PSA RESULTS Date Time Test Result Flag (u) Normal Range 06/13/13 0748 PSA,TOT SCREEN 4.99 H 0.00-4.00 ng/mL This test was performed using the TPSA assay method for the iNeed chemistry system. Values obtained with different assay methods cannot be used interchangably. When changing PSA assays in the course of monitoring a patient, additional sequential testing should be carried out to confirm baseline values. Date Time Test Result Flag (u) Normal Range 03/11/17 1537 PSA, DIAGNOSTIC 3.16 0.0-4.0 ng/mL This test was performed using the TPSA assay method for the iNeed chemistry system. Values obtained with different assay methods cannot be used interchangably. When changing PSA assays in the course of monitoring a patient, additional sequential testing should be carried out to confirm baseline values. Signed Javy Diaz 04/21/17 <signature on file> Performed By: #### PPROSBIL #### [facility] [address] [place], [place] [address] [place], [place], [address] IMMUNOHISTOCHEMISTRY Observed: 04/19/2017 Status: F Source: [place] 12:00 [facility] REPOSITORY Patient: FARHANA CAMERON : 1940 (77/M) Acct Num: [id number] Phys: Ke SCHMITT,Min Unit Num: [id number] Loc: LABSPEC Specimen: [id number] Received: 04/21/17 - 1050 Spec Type: IMMUNO TISSUES TISSUES: E. PROSTATE LEFT - MID SPECIMEN INFORMATION: Tissue Source: E - Left prostate, mid, core biopsy Clinical Info: Elevated PSA Specimen Number: [id number] CPT code: 93351, 14977 METHODOLOGY: Deparaffinized sections of prefer/formalin-fixed tissue or [...] developed and their performance characteristics determined by [facility]. They may not have been cleared or approved by the U.S. Food and Drug Administration. The FDA has determined that such clearance or approval is not necessary. INTERPRETATION: E. Left prostate, mid, core biopsy: Adenocarcinoma. SJ:julia 04/21/17 PHYSICIAN AND INSTITUTION [address] [address] Signed Javy Diaz 04/21/17 <signature on file> Performed By: #### PIMM #### [facility] [address], [address] ALLERGIES ALLERGIES DATE TYPE / CODE NAME / CODE REACTION SEVERITY SOURCE 01/08/2018 Drug adhesive SKIN TEARS Unknown [facility] Allergy/416 tape/C047050036( Hospital 947511(SNOM RXNORM) Repository ED CT) 01/08/2018 Drug rosuvastatin/F00 FLU LIKE SV [facility] Allergy/071 9072467(RXNORM) SYMPTOMS Hospital 941826(SNOM Repository ED CT) 02/12/2013 Drug No Known Unknown [facility] Allergy/416 Allergies/L11524 Hospital 209100(SNOM 0388(RXNORM) Repository ED CT) Drug NO KNOWN [facility] Class/08232 ALLERGIES [address](SNOMED Repository CT) ENCOUNTERS ENCOUNTERS ADMIT/DISCHARGE ACCOUNT ADMITTING ENCOUNTER LOCATION SOURCE NUMBER CLASS 03/14/2018 [id number] Ambulatory [facility] ing:LAB Repository 03/09/2018 [id number] [facility] ing:CVS Repository 02/03/2018 [id number] [facility] ing:POLAB3 Repository 01/11/2018 [id number] Ambulatory [facility] ing:MRI Repository 01/08/2018/01/09/20 [id number] Emergency [address] ing:ED Repository 12/20/2017/12/21/19 [id number] Ambulatory BMSBuilding:B [place] [address] [facility] Repository 12/20/2017 [id number] Ambulatory BMSBuilding:B Danny [facility] Repository 11/04/2017 [id number] [facility] ing:POLAB3 Repository 08/20/2017 [id number] [facility] ing:LAB Repository 08/19/2017 [id number] Ambulatory [facility] Repository 08/09/2017 [id number] Ambulatory [facility] ing:POLAB3 Repository 07/29/2017 [id number] Ambulatory [facility] ing:POLAB3 Repository 07/14/2017/07/16/19 [id number] Yovanny Dempsey Inpatient [address] ing:DN2Ibsm: Repository [id number]: 1 07/01/2017/07/16/19 [id number] Ambulatory BMSBuilding:W [address] Repository 05/17/2017 [id number] Ambulatory [facility] ing:POLAB3 Repository 05/11/2017 [id number] Ambulatory [facility] ing:CT Repository 05/06/2017 [id number] Ambulatory [facility] ing:NM Repository 04/29/2017 [id number] Ambulatory [facility] ing:POLAB3 Repository 04/19/2017 [id number] Ambulatory [facility] ing:LABSPEC Repository PAYERS PAYERS ENCOUNTER GUARANTOR PAYER SUBSCRIBER SOURCE 03/14/2018 FARHANA R Primary FARHANA R Danny [id number] Insurance:[facility] [id number] Number: Repository [address]Wwu: [phone] [id number] [phone] () Date:2018-03-14 03/14/2018 Secondary FARHANA R Danny Insurance:[address]ICAL [facility] LOUISELLDOB: [facility] [id number] Hospital Number: Repository [id number] Date:4213-31-35CJ[address] [address]FH: 03/14/2018 Tertiary NOT GIVENUNK Danny Insurance:SELF PAY [facility] Number: Effective Repository Date:2018-03-14 03/09/2018 FARHANA R Primary FARHANA R Danny [id number] Insurance:MEDICARE MCCONNELLDOB: Community [place] [facility] [id number], [place] Number: Repository [address]Hom: 330 [id number] [phone] (HP) Date:2018-02-24 03/09/2018 Secondary FARHANA R Media Insurance:MEDICAL MCCONNELLDOB: [facility] [id number] Hospital Number: Repository [id number] Date:3889-48-04EQ[address] [address]RR: 03/09/2018 Tertiary NOT GIVENUNK Danny Insurance:SELF PAY [facility] Number: Effective Repository Date:2018-02-24 02/03/2018 FARHANA R Primary FARHANA R Media [id number] Insurance:MEDICARE MCC[facility]LLDOB[facility] [id number], [place] Number: Repository [address]Wfn: 330 [id number] [phone] () Date:2018-02-03 02/03/2018 Secondary FARHANA R Media Insurance:MEDICAL MCCONNELLDOB: [facility] [id number] Hospital Number: Repository [id number] Date:2945-55-12VQ[address] [address]GT: 02/03/2018 Tertiary NOT GIVENUNK Media Insurance:SELF PAY [facility] Number: Effective Repository Date:2018-02-03 01/11/2018 FARHANA R Primary FARHANA R Media [id number] Insurance:MEDICARE MCCONNELLDOB: [facility] [id number] Number: Repository [address]Yza: 330 [id number] [phone] (HP) Date:2018-01-06 01/11/2018 Secondary FARHANA R Media Insurance:MEDICAL MCCONNELLDOB: [facility] [id number] Hospital Number: Repository [id number] Date:0521-53-44VL[address] [address]JD: 01/11/2018 Tertiary NOT GIVENUNK Media Insurance:SELF PAY [facility] Number[facility] Effective Repository Date:2018-01-06 01/08/2018 FARHANA R Primary FARHANA R Media [id number] Insurance:MEDICARE MCCONNELLDOB: Community [place] [facility] [id number], [place] Number: Repository [address]Teh: ([phone]) [id number] [phone] () Date:2018-01-08 01/08/2018 Secondary FARHANA R Danny Insurance:MEDICAL MCCONNELLDOB: [facility] [id number] Hospital Number: Repository [id number] Date:1491-77-96QH[address] [address]KT: 01/08/2018 Tertiary NOT GIVENUNK Danny Insurance:SELF PAY [facility] Number: Effective Repository Date:2018-01-08 12/20/2017 FARHANA R Primary FARHANA R Media [id number] Insurance:MEDICARE MCCONNELLDOB: Community [place] [facility] [id number], [place] Number: Repository [address]Ang: [phone]) [id number] [phone] () Date:2017-02-05 12/20/2017 Secondary FARHANA R Danny Insurance:MEDICAL MCCONNELLDOB: [facility] [id number] Hospital Number: Repository [id number] Date:1689-43-19PA[address] [address]FJ: 12/20/2017 Tertiary NOT GIVENUNK Danny Insurance:SELF PAY [facility] Number: Effective Repository Date:2017-12-20 12/20/2017 Farhana R Primary Farhana R Danny [id number] Insurance:MEDICARE McconnellDOB: Community [place] [facility] [id number], [place] Number: Repository [address]Oca: 330 [id number] [phone] () Date:2017-12-20 12/20/2017 Secondary Farhana R Media Insurance:MEDICAL McconnellDOB: [facility] [id number] Hospital Number: Repository [id number] Date:7530-31-97WY[address] [address]OK: 12/20/2017 Tertiary NOT GIVENUNK Media Insurance:SELF PAY [facility] Hospital Number: Effective Repository Date:2017-12-20 11/04/2017 Farhana R Primary Farhana R Danny [id number] Insurance:MEDICARE McconnellDOB: Community [place] [facility] [id number], [place] Number: Repository [address]Qgw: 330 [id number] [phone] () Date:2017-11-04 11/04/2017 Secondary Farhana R Danny Insurance:MEDICAL McconnellDOB: [facility] [id number] Hospital Number: Repository [id number] Date:4450-03-92KW [address] [place] [address]VB: 11/04/2017 Tertiary NOT GIVENUNK Media Insurance:SELF PAY [facility] Number: Effective Repository Date:2017-11-04 08/20/2017 Farhana R Primary Farhana R Danny [id number] Insurance:MEDICARE McconnellDOB: Community [place] [facility] [id number], [place] Number: Repository [address]Tmq: 330 [id number] [phone] () Date:2017-08-20 08/20/2017 Secondary Farhana R Media Insurance:MEDICAL McconnellDOB: [facility] [id number] Hospital Number: Repository [id number] Date:5069-64-74IB [address] [place] [address]PH: 08/20/2017 Tertiary NOT GIVENUNK Danny Insurance:SELF PAY [facility] Hospital Number: Effective Repository Date:2017-08-20 08/09/2017 Farhana R Primary Farhana R Danny [id number] Insurance:MEDICARE McconnellDOB: Community [place] [facility] [id number], [place] Number: Repository [address]Pvb: 330 [id number] [phone] () Date:2017-08-09 08/09/2017 Secondary Farhana R Media Insurance:MEDICAL McconnellDOB: [facility] [id number] Hospital Number: Repository [id number] Date:0293-16-[address] [address]HG: 08/09/2017 Tertiary NOT GIVENUNK Media Insurance:SELF PAY [facility] Hospital Number: Effective Repository Date:2017-08-09 07/29/2017 Farhana R Primary Farhana R Media [id number] Insurance:MEDICARE McconnellDOB: Community [place] [facility] [id number], [place] Number: Repository [address]Kde: 330 [id number] [phone] () Date:2017-07-29 07/29/2017 Secondary Farhana R Media Insurance:MEDICAL McconnellDOB: [facility] [id number] Hospital Number: Repository [id number] Date:7343-65-03PB[address] [address]RP: 07/29/2017 Tertiary NOT GIVENUNK Danny Insurance:SELF PAY [facility] Hospital Number: Effective Repository Date:2017-07-29 07/14/2017 Farhana R Primary Farhana R Danny [id number] Insurance:MEDICARE McconnellDOB: Community [place] [facility] [id number], [place] Number: Repository [address]Dfy: (880) [id number] [phone] () Date:2017-06-14 07/14/2017 Secondary Farhana R Danny Insurance:MEDICAL McconnellDOB: [facility] [id number] Hospital Number: Repository [id number] Date:6340-88-63XU[address] [address]NV: 07/14/2017 Tertiary NOT GIVENUNK Media Insurance:SELF PAY [facility] Hospital Number: Effective Repository Date:2017-06-14 07/01/2017 Farhana R Primary Farhana R Danny [id number] Insurance:MEDICARE McconnellDOB: Community [place] [facility] [id number], [place] Number: Repository [address]Yij: 330 [id number] [phone] () Date:2017-06-14 07/01/2017 Secondary Farhana R Media Insurance:MEDICAL McconnellDOB: [facility] [id number] Hospital Number: Repository [id number] Date:3939-35-19AW[address] [address]EO: 07/01/2017 Tertiary NOT GIVENUNK Danny Insurance:SELF PAY [facility] Hospital Number: Effective Repository Date:2017-07-01 05/17/2017 Farhana R Primary Farhana R Danny [id number] Insurance:MEDICARE McconnellDOB: Community [place] [facility] [id number], [place] Number: Repository [address]Yxe: 330 [id number] [phone] () Date:2017-05-17 05/17/2017 Secondary Farhana R Danny Insurance:MEDICAL McconnellDOB: [facility] [id number] Hospital Number: Repository [id number] Date:4202-44-99PL[address] [address]WP: 05/17/2017 Tertiary NOT GIVENUNK Danny Insurance:SELF PAY [facility] Hospital Number: Effective Repository Date:2017-05-17 05/11/2017 Farhana R Primary Farhana R Danny [id number] Insurance:MEDICARE McconnellDOB: Community [place] [facility] [id number], [place] Number: Repository [address]Hdp: 330 [id number] [phone] () Date:2017-05-04 05/11/2017 Secondary Farhana R Danny Insurance:MEDICAL McconnellDOB: [facility] [id number] Hospital Number: Repository [id number] Date:[id number] [address]TC: 05/11/2017 Tertiary NOT GIVENUNK [employer] Insurance:SELF PAY [facility] Number: Effective Repository Date:2017-05-04 05/06/2017 Farhana R Primary Farhana R Media [id number] Insurance:MEDICARE [place]DOB: [place] PART A [facility] [id number] Number: Repository [id number]: 330 [id number] () Date:2017-05-04 05/06/2017 Secondary Farhana R Media Insurance:MEDICAL McconnellD[facility]: [facility] [id number] Number: Repository [id number] Date:[id number] [address]PC: 05/06/2017 Tertiary NOT GIVENUNK [employer] Insurance:SELF PAY [facility] Number: Effective Repository Date:2017-05-04 04/29/2017 Farhana R Primary Farhana R Media [id number] Insurance:MEDICARE McconnellDOB: [place] PART A [facility] [id number] Number: Repository [id number]: 330 [id number] () Date:2017-04-29 04/29/2017 Secondary Farhana R Media Insurance:MEDICAL [place]DOB: [id number] Hospital Number: Repository [id number] Date:[id number], [place] [address]TL: 04/29/2017 Tertiary NOT GIVENUNK Media Insurance:SELF PAY [facility] Number: Effective Repository Date:2017-04-29 04/19/2017 Farhana R Primary Farhana R [employer] [id number] [facility] [id number] Number: Repository [id number]: [phone] [id number] [phone] () Date:2017-04-19 04/19/2017 Secondary Farhana R Danny [facility]ICAL [facility] [id number] Hospital Number: Repository [id number] Date:[id number] [facility] [address] [place] [address]VF: 04/19/2017 Tertiary NOT GIVENUNK Danny Insurance:SELF PAY [facility] Number: Effective Repository Date:2017-04-19
== END ==
PROVIDERS: Urology; Family Provider Family Medicine Geriatric Medicine; PCP Family Medicine Geriatric Medicine; Referring Provider Family Medicine Geriatric Medicine; Visit Provider Family Medicine Geriatric Medicine
DX: I65.23 Occlusion and stenosis of bilateral carotid arteries (principal); E29.1 Testicular hypofunction; R53.83 Other fatigue
CPT/HCPCS: 36415; 80048; 84403; 85027; 93880

== ENCOUNTER → 2018-03-14 10:59 | Outpatient (CLI) | payer MEDICARE, OTHER, SELFPAY ==
[2018-03-14 12:01] LABS: PSA,Total- Diagnostic < 0.01 ng/mL (0.0-4.0)
--- OUTSIDE RECORDS SUMMARY | 2018-05-16 21:18 | XMS RPT_ITS ---
:1940 Author Organization OHIP Support Name Relationship Address Phone CELLAR, RADHA Unavailable Unavailable + [place] [phone] CAMERON, OLIVE Unavailable [address] + [place] [address] R Unavailable Unavailable Unavailable CELLAR, RADHA Unavailable Unavailable + [place] [phone] CAMERON, OLIVE Unavailable [address] + [place] [address] R Unavailable Unavailable Unavailable CELLAR, RADHA Unavailable Unavailable + [place] [phone] CAMERON, OLIVE Unavailable [address] + [place] [address] R Unavailable Unavailable Unavailable CELLAR, RADHA Unavailable Unavailable + [place] [phone] CAMERON, OLIVE Unavailable [address] + [place] [address] R Unavailable Unavailable Unavailable CELLAR, RADHA Unavailable Unavailable + [place] [phone] CAMERON, OLIVE Unavailable [address] + [place] [address] R Unavailable Unavailable Unavailable CELLAR, RADHA Unavailable . + ., [place] . CAMERON, OLIVE Unavailable [address] + [place] [address] R Unavailable Unavailable Unavailable CAMERON, OLIVE Unavailable [address] + [place] [address] R Unavailable Unavailable Unavailable CAMERON, OLIVE Unavailable [address] + [place] [address] R Unavailable Unavailable Unavailable CAMERON, OLIVE Unavailable [address] + [place] [address] R Unavailable Unavailable Unavailable CAMERON, OLIVE Unavailable [address] [phone] [place] [address] R Unavailable Unavailable Unavailable CAMERON, OLIVE Unavailable [address] + [place] [address] R Unavailable Unavailable Unavailable CAMERON, OLIVE Unavailable [address] [phone] [place] [address] R Unavailable Unavailable Unavailable CAMERON, OLIVE Unavailable [address] + [place] [address] R Unavailable Unavailable Unavailable CAMERON, OLIVE Unavailable [address] [phone] [place] [address] R Unavailable Unavailable Unavailable CAMERON, OLIVE Unavailable [address] [phone] [place] [address] R Unavailable Unavailable Unavailable CAMERON, OLIVE Unavailable [address] [phone] [place] [address] R Unavailable Unavailable Unavailable CAMERON, OLIVE Unavailable [address] [phone] [place] [address] R Unavailable Unavailable Unavailable CAMERON, OLIVE Unavailable [address] [phone] [place] [address] R Unavailable Unavailable Unavailable Care Team Providers [...] Dempsey Admitting Unavailable KeYovanny weber Attending Unavailable KeYoavnny Referring Unavailable Red, Fredis Chi Primary Care [...] Unknown R97.20 - Elevated KeYovanny weber Active [place] prostate specific [facility] antigen [PSA] / Hospital R97.20(ICD-10) Repository 01/08/2018 Unknown R52 - Pain, Jwayyed, Active [place] unspecified / [facility] R52(ICD-10) Hospital Repository 12/20/2017 Unknown 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 Austin 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 / I25.10(ICD-10) 12/20/2017 Unknown C61 - Malignant Red, 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 Community / C61(ICD-10) Hospital Repository 08/09/2017 Unknown E11.9 - Type 2 Rde, Fredis Chi Active [place] diabetes mellitus Community without complications Hospital / E11.9(ICD-10) Repository 08/09/2017 Unknown I10 - Essential Red, Fredis Chi Active [place] (primary) Community hypertension / Hospital I10(ICD-10) Repository 08/09/2017 Unknown E55.9 - Vitamin D Red, Fredis Chi Active [place] deficiency, Community unspecified / Hospital E55.9(ICD-10) Repository 08/19/2017 Unknown D64.9 - Anemia, Red, Fredis Chi Active [place] unspecified / Community D64.9(ICD-10) Hospital Repository 08/10/2017 Unknown R00.1 - Bradycardia, [place]isp[place], Josias Active [place] unspecified / Community R00.1(ICD-10) Hospital Repository 04/29/2017 Unknown E78.4 - Other Fredis Greenberg Chi Active [place] hyperlipidemia / Community E78.4(ICD-10) Hospital Repository PROCEDURES PROCEDURES No Procedure Records FoundRESULTS RESULTS PSA,TOTAL- DIAGNOSTIC Collected: 03/14/2018 Status: F Source: [place] 11:06 AM [facility] REPOSITORY TYPE CODE TESTS RESULT OUT OF RANGE REFERENCE UNITS LAB L501.9940 0.0-4.0 ng/mL PSA, Normal DIAGNOSTIC < 0.01 Result Comment: This test was performed using the TPSA assay method for the Indus Insights chemistry system. Values obtained with different assay methods cannot be used interchangably. When changing PSA assays in the course of monitoring a patient, additional sequential testing should be carried out to confirm baseline values. Performed By: #### L501.9940 #### [facility] [address] [facility], [address] CAROTID DUPLEX Observed: 03/10/2018 Status: F Source: [place] ULTRASOUND 11:20 AM [facility] REPOSITORY [facility] Cardiovascular Services [address] [place] [address] Carotid Duplex Ultrasound 03/09/18 1315 MR#: [id number] Acct: [id number] Name: FARHANA CAMERON Rep #: [id number] : 1940 77 From: Jey Freitas MD Attending Dr: Fredis Greenberg MD, Chi Status: REG CLI Ordering Dr: Fredis Greenberg MD Date: 03/09/18 Location: [facility] Sex: M C Admitted: Reason For [...] the left vertebral artery. Procedure Carotid Duplex 09169. Exam performed in department. Interpretation Summary Mild [...] Dictated: 03/09/18 1315 Date Transcribed: 03/10/18 111 Pulper: Signed CBC-COMPLETE BLOOD CNT Collected: 03/09/2018 Status: F Source: [place] NO DIFF 12:41 PM [facility] REPOSITORY TYPE CODE TESTS RESULT OUT OF [...] MPV 9.4 Performed By: #### L100.0500 #### [facility] [place], [address] BASIC METABOLIC Collected: 03/09/2018 Status: F Source: [place] PROFILE (BMP) 12:41 PM [facility] REPOSITORY TYPE CODE TESTS RESULT OUT OF [...] GAP 8 Performed By: #### L500.2500 #### [facility] [address] [place], [address] TESTOSTERONE, SERUM TOTAL Collected: 03/09/2018 Status: F Source: [place] 12:41 PM [facility] REPOSITORY TYPE CODE TESTS RESULT OUT OF [...] CHANGED 02/10/2017 Performed By: #### L509.3000 #### [facility] [address] [facility], [address] CBC W/DIFF, AUTOMATED Collected: 02/03/2018 Status: F Source: [place] 3:28 PM [facility] REPOSITORY TYPE CODE TESTS RESULT OUT OF [...] Lymph 1.35 Performed By: #### L100.0100 #### [facility] [address] [place], [place], [address] HEMOGLOBIN A1C Collected: 02/03/2018 Status: F Source: [place] 3:28 PM [facility] REPOSITORY TYPE CODE TESTS RESULT OUT OF RANGE REFERENCE UNITS LAB L501.9985 4.2-6.3 % High HGB A1C 8.3 Performed By: #### L501.9985 #### [facility] [address] [place], [address] COMPREHENSIVE METABOLIC Collected: 02/03/2018 Status: F Source: [facility] 3:28 PM [facility] REPOSITORY TYPE CODE TESTS RESULT OUT OF [...] Performed By: #### L500.4050, L500.4100, L501.9520 #### [facility] [address] [place], [address] LIPID PROFILE Collected: 02/03/2018 Status: F Source: [place] 3:28 PM [facility] REPOSITORY TYPE CODE TESTS RESULT OUT OF [...] Performed By: #### L500.4050, L500.4100, L501.9520 #### [facility] [address] [facility] [place], [address] THYROID STIM HORMONE Collected: 02/03/2018 Status: F Source: [place] (TSH) 3:28 PM [facility] REPOSITORY TYPE CODE TESTS RESULT OUT OF RANGE REFERENCE UNITS LAB L501.9520 0.358-3.74 uIU/mL Normal TSH 1.90 Performed By: #### L500.4050, L500.4100, L501.9520 #### [facility] [address] [facility] [place], [address] CREATININE FINGERSTICK Collected: 01/11/2018 Status: F Source: [place] 1:18 PM [facility] REPOSITORY TYPE CODE TESTS RESULT OUT OF RANGE REFERENCE UNITS LAB L9100.0210 0.70-1.30 mg/dL Normal CREATININE WB 1.1 LAB L9100.0220 >60 mL/min EGFR WB Normal > 60.0000 Performed By: #### L9100.0200 #### [facility] Point of Care [address] [place] [address] BRAIN W/WO CONTRAST Observed: 01/11/2018 Status: F Source: [place] 12:58 PM [facility] REPOSITORY [facility] Imaging Services [address] [place] [address] Brain W/WO Contrast MR#: [id number] Acct: [id number] Name: FARHANA CAMERON Rep #: [id number] : 1940 M 77 From: Barron Reynolds MD PCP: Fredis Greenberg MD, Chi Status: REG CLI Study: Brain W/WO Contrast Date of Exam: 01/11/18 Exam# [id number] Ordering Dr: Sandeep Foy MD STUDY: MRI [...] CC: Sandeep Foy MD; Fredis Greenberg MD Pulper: Signed EMERGENCY DEPARTMENT Observed: 01/08/2018 Status: F Source: [place] SUMMARY 2:34 PM [facility] REPOSITORY [facility] Medical Records Department [address] [place] [address] Emergency Department Summary 01/08/18 0913 MR#: [id number] Acct: [id number] Name: FARHANA CAMERON Rep #: [id number] : 1940 77 From: Jose Fay MD [...] anything for pain, I will provide him [place] 4 tablets to use at bedtime he is referred to [place] [facility] and to follow- up and return for change in symptoms Treatment Plan: [] Disposition: [] Home stable Impression: [] Fall left hip pain, DJD both hips This note was generated with Videregen dictation software. It may contain incorrect words, [...] problems, contact your Primary Care Provider. Call [facility] ([phone]) or report to the closest Emergency Room. Call 911 if necessary. 01/08/18 1434 <Electronically signed by Jose Fay MD> Date Jose Fay MD Cosigner Signature (If Indicated): Date CC: Fredis Greenberg MD DISCHARGE INSTRUCTION Observed: 01/08/2018 Status: F Source: [place] 10:02 AM [facility] REPOSITORY [facility] Medical Records Department [address] [place] [address] Discharge Instruction 01/08/18 1000 MR#: [id number] Acct: [id number] Name: FARHANA CAMERON Rep #: [id number] : 1940 77 From: Jose Fay MD PCP: Fredis Greenberg MD, Chi Status: REG ER ED Disposition - Plan for ED Patient: Chief Complaint: Lower Extremity Injury Instructions: ED Sprain Hip Prescriptions: Hydrocodone Bitart/Apap 5-325 [[place] 5MG-325MG] 1 tab PO QHS 2 Days #7 tab Referrals: Fredis Greenberg Chi, MD [Primary Care Provider] - What to do if you have Problems For any increased pain, shortness of breath, bleeding, nausea or vomiting, chest pain, or any unexpected problems, contact your Primary Care Provider. Call [facility] ([phone]) or report to the closest Emergency Room. Call 911 if necessary. 01/08/18 1002 <Electronically signed by Jose Fay MD> Date Jose Fay MD Cosigner Signature (If Indicated): Date CC: Fredis Greenberg MD HIP, UNI W/ PELVIS Observed: 01/08/2018 Status: F Source: [place] 2-3 VIEWS 9:10 AM [facility] REPOSITORY [facility] Imaging Services [address] [place] [address] HIP, UNI W/ Pelvis 2-3 Views MR#: [id number] Acct: [id number] Name: FARHANA CAMERON Rep #: [id number] : 1940 77 From: Ariella Gil MD PCP: Fredis Greenberg MD, Chi Status: REG ER Study: HIP, UNI W/ Pelvis 2-3 Views Date of Exam: 01/08/18 Exam# [id number] Ordering Dr: Jose Fay MD STUDY: X-RAY [...] CC: MD Joe Fay; Fredis Greenberg MD Pulper: Signed CARDIOLOGY VISIT Observed: 12/20/2017 Status: F Source: [place] REPORT 2:29 PM [facility] REPOSITORY [facility] [address] [place] [address] OFFICE VISIT Date of Service: 12/20/17 MR#: [id number] Acct: [id number] Name: FARHANA CAMERON Rep #: [id number] : 1940 Provider: Josias Austin MD Age/Sex: 77/M Location: [facility] Status: Signed HPI HPI Details: FARHANA CAMERON, [...] with poor R wave progression. An anterior WA of indeterminate age could not be excluded. 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 Cardiac catheterization: 06/24/2001: [facility] FINAL IMPRESSION: 1. Elevated left ventricular end [...] EPISODES OF BORDERLINE 1ST DEGREE AV BLOCK- WY.22-.24 MINIMUM HR 445PM AT 501:53 AM WHILE [...] arteries. Assessment AND Plan 1. Atherosclerosis of lime coronary artery of lime heart without angina pectoris I25.10 Mild Plan [...] Code Off vis,est,level 4 Diagnoses Atherosclerosis of lime coronary artery of lime heart without angina pectoris I25.10 [place] vs. transplanted heart: lime heart Premature atrial beat I49.1 Premature ventricular beat I49.3 Sinus bradycardia R00.1 Wide-complex tachycardia I47.2 Hyperlipidemia E78.5 Essential hypertension I10 Syncope R55 Coding Level of Care Code Off vis,est,level 4 Diagnoses Atherosclerosis of lime coronary artery of lime heart without angina pectoris I25.10 [place] vs. transplanted heart: lime heart Premature atrial beat I49.1 Premature ventricular beat I49.3 Sinus bradycardia R00.1 Wide-complex tachycardia I47.2 Hyperlipidemia E78.5 Essential hypertension I10 Syncope R55 12/20/17 1429 <Electronically signed by Josias [place] MD> Date Josias [place] MD Cosigner Signature: Date (if applicable) CC: Fredis Greenberg MD 12 LEAD EKG PERFORMED Observed: 12/20/2017 Status: F Source: [place] BY [facility] 1:48 PM [facility] REPOSITORY [facility] [address] [place] [address] 12 Lead EKG performed by [facility] 12/20/17 1348 MR#: [id number] Acct: [id number] Name: FARHANA CAMERON Rep #: [id number] : 1940 77 From: Josias Austin MD Attending Dr: Josias [place] MD Status: DEP AMB Ordering Dr: Josias [place] MD Date: 12/20/17 Location: [facility] Sex: M C Admitted: BMS/12 Lead EKG performed by [facility] ECG Report Interpretation Sinus rhythmLeft axis deviationPossible Left anterior fascicular blockPoor R wave progressionAnterior WA, age undetermined, cannot be excludedABNORMAL Electronically signed on 12/20/2017 at 15:56 by Josias Austin Software Version 8610 12/20/17 1601 Date Josias [place] MD CC: Fredis Greenberg MD Date Dictated: 12/20/17 1348 Date Transcribed: 12/20/171347 Pulper: PM Signed PSA,TOTAL- DIAGNOSTIC Collected: 11/04/2017 Status: F Source: [place] 2:48 PM [facility] REPOSITORY TYPE CODE TESTS RESULT OUT OF RANGE REFERENCE UNITS LAB L501.9940 0.0-4.0 ng/mL PSA, Normal DIAGNOSTIC < 0.01 Result Comment: This test was performed using the TPSA assay method for the Boxer system. Values obtained with different assay methods cannot be used interchangably. When changing PSA assays in the course of monitoring a patient, additional sequential testing should be carried out to confirm baseline values. Performed By: #### L501.9940 #### [facility] [address] [place], [address] PSA,TOTAL- DIAGNOSTIC Collected: 08/20/2017 Status: F Source: [place] 11:42 AM [facility] REPOSITORY TYPE CODE TESTS RESULT OUT OF RANGE REFERENCE UNITS LAB L501.9940 0.0-4.0 ng/mL PSA, Normal DIAGNOSTIC < 0.01 Result Comment: This test was performed using the TPSA assay method for the Ind[employer] Insights chemistry system. Values obtained with different assay methods cannot be used interchangably. When changing PSA assays in the course of monitoring a patient, additional sequential testing should be carried out to confirm baseline values. Performed By: #### L501.9940 #### [facility] [address] [place], [address] CNOV Observed: 08/19/2017 Status: COMPLETED Source: [place] 2:30 PM [facility] REPOSITORY Office Visit (UROLEU) FARHANA CAMERON ([id number]) 1940 M Date Time Provider Department 08/19/17 2:30 PM DAVID LOOMIS During your visit today, we recorded the following information about you: Weight Height 74.8 kg 1.695 m Frances Nicholas Ma 08/19/2017 3:10 PM Signed Wrong chart. Referring Provider: VERA AKERS [[id number]] Allergies As of Date: 08/19/2017 (Not on [...] 08/24/17 ERRONEOUSENC Observed: 08/19/2017 Status: COMPLETED Source: [place] 2:30 PM [facility] REPOSITORY [id number] Farhana Cameron 1940 M * Clinical document posted in Error * Encounter Type Conversion History User Instant Changed From Changed To CHELSEY BURT Sep 07, 2017 10* Office Visit Erroneous* FRANCES NICHOLAS MA Brianne Aug 19, 2017 2* Appointment Office Vi* DOWNTIME REPORT Observed: 08/12/2017 Status: F Source: [place] 1:29 PM [facility] REPOSITORY [facility] Medical Records Department [address] [place] [address] Downtime Report MR#: [id number] Acct: [id number] Name: FARHANA CAMERON R Rep #: [id number] : 1940 77 From: Joel Gil PCP: Red SCHMITT,Fredis Chi Status: REG CLI This patient was seen during an EMR downtime July 26, 2017 - August 02, 2017. This patient may have a combination of paper and electronic documentation or all paper documentation. All documentation is viewable within the e-chart portion of [facility] for each patient visit. CBC W/DIFF, AUTOMATED Collected: 08/09/2017 Status: F Source: [place] 3:12 PM [facility] REPOSITORY TYPE CODE TESTS RESULT OUT OF [...] Lymph 0.76 Performed By: #### L100.0100 #### [facility] [address] [place], [address] VITAMIN D,25 HYDROXY Collected: 08/09/2017 Status: F Source: [place] 3:12 PM [facility] REPOSITORY TYPE CODE TESTS RESULT OUT OF RANGE REFERENCE UNITS LAB L506.1000 29.95-100.01 ng/mL Normal Vitamin D 38.3 25-OH Result Comment: Vitamin D 25(OH) Status Range Deficiency <20 ng/mL (50nmol/L) Insuffciency 20 - 30 ng/mL (50 - 75 nmol/L) Sufficiency 30 - 100 ng/mL (75 - 250 nmol/L) Toxicity >100 ng/mL (>250 nmol/L) Performed By: #### L506.1000 #### [facility] [place], [address] COMPREHENSIVE METABOLIC Collected: 08/09/2017 Status: F Source: [place] [facility] 3:12 PM [facility] REPOSITORY TYPE CODE TESTS RESULT OUT OF [...] 8 Performed By: #### L500.4050, L501.9520 #### [facility] [address] [place], [address] THYROID STIM HORMONE Collected: 08/09/2017 Status: F Source: [place] (TSH) 3:12 PM [facility] REPOSITORY TYPE CODE TESTS RESULT OUT OF RANGE REFERENCE UNITS LAB L501.9520 0.358-3.74 uIU/mL Normal TSH 0.61 Performed By: #### L500.4050, L501.9520 #### [facility] [address] [place], [address] IRON+IRON BINDING Collected: 07/29/2017 Status: F Source: [place]AC[place] 2:00 PM [facility] REPOSITORY Order Comment: RESULT(S) PREVIOUSLY REPORTED ON MANUAL REQUISITION DURING DOWNTIME. TYPE CODE TESTS RESULT OUT OF RANGE REFERENCE UNITS LAB L503.6075 250-450 ug/dL TIBC Normal 277 LAB L503.6150 65-175 ug/dL Low IRON 63 LAB L503.6250 15.0-55.0 % IRON Normal SATURATION 22.7 Performed By: #### L503.6030 #### [facility] [address] [place], [address] CBC W/DIFF, AUTOMATED Collected: 07/29/2017 Status: F Source: [place] 2:00 PM [facility] REPOSITORY Order Comment: RESULT(S) PREVIOUSLY REPORTED ON [...] Lymph 1.36 Performed By: #### L100.0100 #### [facility] [address] [place] [address], [id number] BEDSIDE GLUCOSE Collected: 07/15/2017 Status: F Source: [place] 8:19 AM [facility] REPOSITORY TYPE CODE TESTS RESULT OUT OF REFERENCE UNITS RANGE LAB L501.080 70-110 mg/dL High BEDSIDE GLU 150 Result Comment: MANAGEMENT OF PATIENT CARE PER NURSING PROTOCOL Performed By: #### L501.080 #### [facility] Point of Care [address] [facility] [place], [place] [address] CBC-COMPLETE BLOOD CNT Collected: 07/15/2017 Status: F Source: [place] NO DIFF 5:42 AM [facility] REPOSITORY TYPE CODE TESTS RESULT OUT OF [...] MPV 9.2 Performed By: #### L100.0500 #### [facility] [address] [place], [address] BASIC METABOLIC Collected: 07/15/2017 Status: F Source: [place] PROFILE (BMP) 5:42 AM [facility] REPOSITORY TYPE CODE TESTS RESULT OUT OF [...] GAP 9 Performed By: #### L500.2500 #### [facility] [address] [facility] [address] BEDSIDE GLUCOSE Collected: 07/14/2017 Status: F Source: [place] 5:07 PM [facility] REPOSITORY TYPE CODE TESTS RESULT OUT OF REFERENCE UNITS RANGE LAB L501.080 70-110 mg/dL High BEDSIDE GLU 202 Result Comment: MANAGEMENT OF PATIENT CARE PER NURSING PROTOCOL Performed By: #### L501.080 #### [facility] Point of Care [address] [facility] [place] [address] BEDSIDE GLUCOSE Collected: 07/14/2017 Status: F Source: [place] 12:47 PM [facility] REPOSITORY TYPE CODE TESTS RESULT OUT OF REFERENCE UNITS RANGE LAB L501.080 70-110 mg/dL High BEDSIDE GLU 166 Result Comment: MANAGEMENT OF PATIENT CARE PER NURSING PROTOCOL Performed By: #### L501.080 #### [facility] Point of Care [address] [place] [address] DISCHARGE INSTRUCTION Observed: 07/14/2017 Status: F Source: [place] 11:50 AM [facility] Medical Records Department [address] [place] [address] Instructions for Home/Discharge Instructions 07/14/17 1148 MR#: [id number] Acct: [id number] Name: FARHANA CAMERON Joaquin Rep #: [id number] : 1940 77 From: Yovanny Dempsey MD [...] mg PO BID #20 cap 07/14/17 Hydrocodone/Acetaminophen [[place] 5-325 Tablet] 1 ea PO Q4H PRN PRN 5 Days #14 tab 07/14/17 The following prescriptions were given: Hydrocodone/Acetaminophen [[place] 5-325 Tablet] 1 ea PO Q4H PRN [...] 07/14/2017 Status: F Source: [place] 11:43 AM [facility] REPOSITORY [facility] Medical Records Department [address] [place] [address] Operative Report 07/14/17 1132 MR#: [id number] Acct: [id number] Name: FARHANA CAMERON Rep #: [id number] : 1940 77 From: Yovanny Dempsey MD PCP: Fredis Greenberg MD, Chi Status: ADM IN Y Location: [address] Report of Operation Date of Procedure: [...] 07/14/2017 Status: F Source: [place] 6:06 AM [facility] REPOSITORY TYPE CODE TESTS RESULT OUT OF RANGE REFERENCE UNITS LAB L501.080 70-110 mg/dL Normal BEDSIDE GLU 98 Result Comment: MANAGEMENT OF PATIENT CARE PER NURSING PROTOCOL Performed By: #### L501.080 #### [facility] Point [place] [address] PROSTATE RADICAL Observed: 07/14/2017 Status: F Source: [place] RESECTION 12:00 AM [facility] REPOSITORY Patient: FARHANA CAMERON : 1940 (77/M) Acct Num: [id number] Phys: Ke SCHMITT,Yovanny Kurtz Unit Num: [id number] Loc: MS2 [id number] Specimen: [id number] Received: 07/14/171536 Spec Type: PROSTATE TISSUES TISSUES: [...] basal portion of the prostate. Immunohistochemistry ( [id number]) supports the diagnosis of a minute focus [...] do not reveal any obvious mass lesion. [employer] sections are submitted in 18 cassettes as [...] 0.5 cm. No mass lesion is identified. [employer] sections are submitted in one cassette. / SJ:rg 07/15/17 TC:0 CPT: 59536, 33801 HEADER OPERATION: Laparoscopic robotic assisted radical prostatectomy [...] grade 3 Tertiary pattern not applicable Total Surprise score - 7 Tumor Quantitation: Proportion (%) [...] summary is in compliance with [employer] of [place] Path[employer] (CAP) Cancer Protocols Checklist and [place] Joint Committee on Cancer (AJCC), Staging Manual, [...] on file> Performed By: #### PPROST #### [facility] [address] [place] [address]. [place], [address] IMMUNOHISTOCHEMISTRY Observed: 07/14/2017 Status: F Source: MAT[place] 12:00 AM [facility] REPOSITORY Patient: FARHANA CAMERON : 1940 (77/M) Acct Num: [id number] Phys: Ke SCHMITT,Yovanny Kurtz Unit Num: [id number] Loc: MS2 [id number] Specimen: [id number] Received: 07/20/17 - 1125 Spec Type: IMMUNO TISSUES TISSUES: A. Prostate, NOS - BLOCK 3 SPECIMEN INFORMATION: Tissue Source: A - Prostate Clinical Info: Prostate cancer, elevated PSA Specimen Number: [id number] A3 CPT code: 74955, 03029 x2 METHODOLOGY: Deparaffinized sections of prefer/formalin-fixed tissue or PAP/DQ stained slides are incubated with monoclonal/polyclonal antibodies/oligonucleotide probes. Localization is made via biotin free immunoperoxidase method. Appropriate controls are performed and reacted as expected. Results on target cell population are indicated in the following table: RESULTS: ANTIBODY / CLONE RESULT Block A3 P40 (BC28) negative 34BE12 (34BE12) negative CK8 (15hcjnA20) positive These tests were developed and their performance characteristics determined by [facility]. They may not have been cleared or approved by the U.S. Food and Drug Administration. The FDA has determined that such clearance or approval is not necessary. INTERPRETATION: A. Prostate, radical prostatectomy: A minute focus of adenocarcinoma (block A3 ). This case has been reviewed in consultation with Dr. Rasheed who concurs with the above diagnosis. SJ:julia 07/22/17 PHYSICIAN AND INSTITUTION [place] [address] Signed Javy Diaz 07/22/17 <signature on file> Performed By: #### PIMM #### [facility] [address] [place] [address]. [place], [place], [address] 12 LEAD ELECTROCARDIOGRAM Observed: 07/02/2017 Status: F Source: MAT[place]AS 1:50 PM [facility] REPOSITORY [facility] Cardiovascular Services [address] [place] [address] [place] [facility] 1358 MR#: [id number] Acct: [id number] Name: FARHANA CAMERON Rep #: [id number] : 1940 77 From: Josias Austin MD Attending Dr: Yovanny Dempsey MD Status: PRE IN Ordering Dr: West Pfeiffer MD Date: 07/01/17 [place] [facility] Sex: M C Admitted: Test Reason : [...] Abnormal ECG Confirmed by NORMAN SCHMITT, JOSIAS ([id number]), brands editor RAO GIL ([id number]) on 07/02/2017 1:50:00 PM Referred By: Yovanny Dempsey Confirmed By:JOSIAS AUSTIN MD 07/02/171349 Date Josias Austin MD CC: West Pfeiffer MD; Yovanny Dempsey MD; Fredis Greenberg MD Date Dictated: 07/01/171357 Date Transcribed: 07/01/171357 Pulper: Signed PSA,TOTAL- DIAGNOSTIC Collected: 07/01/2017 Status: F Source: MAT[place] 3:05 PM [facility] REPOSITORY TYPE CODE TESTS RESULT OUT OF RANGE REFERENCE UNITS LAB L501.9940 0.0-4.0 ng/mL PSA, Normal DIAGNOSTIC 2.71 Result Comment: This test was performed using the TPSA assay method for the Indus Insights chemistry system. Values obtained with different assay methods cannot be used interchangably. When changing PSA assays in the course of monitoring a patient, additional sequential testing should be carried out to confirm baseline values. Performed By: #### L501.9940 #### [facility] [address] [place], [place], [address] PROTHROMBIN TIME W/INR Collected: 07/01/2017 Status: F Source: MAT[place] 3:05 PM [facility] REPOSITORY TYPE CODE TESTS RESULT OUT OF RANGE REFERENCE UNITS LAB L300.4150 11.7-14.9 SECONDS Normal PROTIME 14.0 LAB L300.4200 Normal INR 1.1 Performed By: #### L300.3900, L300.4310 #### [facility] [address] [place], [address] PARTIAL THROMBOPLAST Collected: 07/01/2017 Status: F Source: DANNY TIME 3:05 PM [facility] REPOSITORY TYPE CODE TESTS RESULT OUT OF RANGE REFERENCE UNITS LAB L300.4310 24.1-36.2 Seconds Normal PTT 33.2 Performed By: #### L300.3900, L300.4310 #### [facility] [address] [place], [address] LYME ANTIBODIES,W BLOT Collected: 05/17/2017 Status: F Source: DANNY 12:09 PM [facility] REPOSITORY TYPE CODE TESTS RESULT OUT OF [...] are those recommended by CDC/ASTPHLD. p23=Osp C, i27=fnaxgjiok Note: Sera from individuals with the following may cross react in the Lyme Western Blot assays: other spirochetal diseases (periodontal disease, leptospirosis, relapsing fever, yaws, and pinta); connective autoimmune (Rheumatoid Arthritis and Systemic Lupus Erythematosus and also individuals with Antinuclear Antibody); other infections (Earle Spotted Fever; Salomon-Armijo Virus, and Cytomegalovirus). Performed at: [facility] Lab[address] [id number] Video Production Specialist: Manuel Sloomon MD, Phone: [phone] Performed By: #### L7000.5800 #### [facility] (refer to report for specific site) refer to report for address and phone number TISSUE BIOPSY Observed: 05/11/2017 Status: F Source: DANNY 11:24 AM [facility] REPOSITORY Patient: FARHANA CAMERON : 1940 (77/M) Acct Num: [id number] Phys: Ke SCHMITT,Min Unit Num: [id number] Loc: CT Specimen: [id number] Received: 05/11/17 - 1548 Spec Type: Tissue Bx TISSUES TISSUES: Skin of forehead GROSS DESCRIPTION Received is one container labeled with the patient's name and not further designated. The specimen consists of a light valdes shaved biopsy of skin measuring 0.7 x 0.5 x 0.1 cm. The specimen is inked, bisected and totally submitted in one cassette. / AM:julia 05/12/17 TC:1 CPT: 12428 HEADER OPERATION: Not noted PRE-OP DIAGNOSIS: L81.9 TISSUE SUBMITTED: Forehead MICROSCOPIC DESCRIPTION Slides are reviewed. MICROSCOPIC DIAGNOSIS Forehead lesion, shave biopsy: Seborrheic keratosis. Actinic keratosis and solar elastosis. SJ:julia 05/13/17 Signed Javy Diaz 05/13/17 <signature on file> Performed By: #### PTISS #### [facility] [address] [place], [address] ABDOMEN/PELVIS W IV CONT Observed: 05/11/2017 Status: F Source: DANNY ONLY 7:00 AM [facility] REPOSITORY [facility] Imaging Services [address] [place] [address] Abdomen/Pelvis W IV Cont ONLY MR#: [id number] Acct: [id number] Name: FARHANA CAMERON Rep #: [id number] : 1940 M 77 From: Fareed Beckham MD PCP: Red SCHMITT,Fredis Schaefer Status: REG CLI Study: Abdomen/Pelvis W IV Cont ONLY Date of Exam: 05/11/17 Exam# [id number] Ordering Dr: Yovanny Dempsey MD STUDY: CT [...] Fareed Beckham MD at 10:02 EDT Tel [phone], Service support , CC: Yovanny Dempsey MD; Fredis Greenberg MD Pulper: Signed BONE SCAN WHOLE Observed: 05/06/2017 Status: F Source: [place] BODY 7:31 AM [facility] REPOSITORY [facility] Imaging Services [address] [place] [address] Bone Scan Whole Body MR#: [id number] Acct: [id number] Name: FARHANA CAMERON Rep #: [id number] : 1940 M 77 From: Theo Santiago DO PCP: Red SCHMITT,Fredis Schaefer Status: REG CLI Study: Bone Scan Whole Body Date of Exam: 05/06/17 Exam# [id number] Ordering Dr: Yovanny Dempsey MD CLINICAL: 77-year-old [...] CC: Yovanny Dempsey MD; Fredis Greenberg MD Pulper: Signed HEMOGLOBIN A1C Collected: 05/04/2017 Status: F Source: DANNY 3:14 PM [facility] REPOSITORY Order Comment: DR GREENBERG ADDED A1C TYPE CODE TESTS RESULT OUT OF RANGE REFERENCE UNITS LAB L501.9985 4.2-6.3 % High HGB A1C 7.5 Performed By: #### L501.9985 #### [facility] [address] [place], [place], [address] CBC W/DIFF, AUTOMATED Collected: 04/29/2017 Status: F Source: [place] 3:14 PM [facility] REPOSITORY TYPE CODE TESTS RESULT OUT OF [...] Lymph 1.58 Performed By: #### L100.0100 #### [facility] [place], [address] COMPREHENSIVE METABOLIC Collected: 04/29/2017 Status: F Source: DANNY [facility] 3:14 PM [facility] REPOSITORY TYPE CODE TESTS RESULT OUT OF [...] Performed By: #### L500.4050, L500.4100, L501.9520 #### [facility] [address] [facility] [place], [place], [address] LIPID PROFILE Collected: 04/29/2017 Status: F Source: [place] 3:14 PM [facility] REPOSITORY TYPE CODE TESTS RESULT OUT OF [...] Performed By: #### L500.4050, L500.4100, L501.9520 #### [facility] [address] [facility] [place], [place], [address] THYROID STIM HORMONE Collected: 04/29/2017 Status: F Source: DANNY (TSH) 3:14 PM [facility] REPOSITORY TYPE CODE TESTS RESULT OUT OF RANGE REFERENCE UNITS LAB L501.9520 0.358-3.74 uIU/mL Normal TSH 1.95 Performed By: #### L500.4050, L500.4100, L501.9520 #### [facility] [place], [address] PROSTATE BIOPSY Observed: 04/19/2017 Status: F Source: [place] BILATERAL 4:30 PM [facility] REPOSITORY Patient: FARHANA CAMERON : 1940 (77/M) Acct Num: [id number] Phys: Ke SCHMITT,Min Unit Num: [id number] Loc: LABSPEC Specimen: [id number] Received: 04/19/17 - 7 Spec Type: PROST BX TISSUES TISSUES: A. PROSTATE RIGHT B. PROSTATE RIGHT C. PROSTATE RIGHT D. PROSTATE LEFT E. PROSTATE LEFT F. PROSTATE LEFT ADDENDUM Addendum Number 1 An order for Oncotype testing was received from Dr. Dempsey. This necessitated case review, block and slide selection by pathologist at [facility]. Prostate Cancer Recurrence Score = 52 Results of the complete Oncotype testing ([facility] report) are viewable in EMR under: Reports - Pathology - Lab Pathology Report, Scanned. Addendum Signed Javy Diaz 05/21/17 <signature on file> COMMENT E. Immunohistochemistry ([id number]) supports the above diagnosis. GROSS DESCRIPTION A [...] Left prostate, mid, core biopsy: Prostatic adenocarcinoma: Surprise grade: 3+4=7 Number of cores involved: 2 out of 2 Proportion of tissue involved: 20% Perineural invasion: Not identified. Greatest tumor length: 0.3 cm See comment. F. Left prostate, base, core biopsy: Prostatic adenocarcinoma: Surprise grade: 3+4=7 Number of cores involved: 1 out of 1 Proportion of tissue involved: ~60% Perineural invasion: Not identified. Greatest tumor length: 0.5 cm Focal atrophy. : 04/21/17 PSA RESULTS Date Time Test Result Flag (u) Normal Range 06/13/13 0748 PSA,TOT SCREEN 4.99 H 0.00-4.00 ng/mL This test was performed using the TPSA assay method for the Indus Insights chemistry system. Values obtained with different assay methods cannot be used interchangably. When changing PSA assays in the course of monitoring a patient, additional sequential testing should be carried out to confirm baseline values. Date Time Test Result Flag (u) Normal Range 03/11/17 1537 PSA, DIAGNOSTIC 3.16 0.0-4.0 ng/mL This test was performed using the TPSA assay method for the Indus Insights chemistry system. Values obtained with different assay methods cannot be used interchangably. When changing PSA assays in the course of monitoring a patient, additional sequential testing should be carried out to confirm baseline values. Signed Javy Diaz 04/21/17 <signature on file> Performed By: #### PPROSBIL #### [facility] [address] [place], [place] [address] [place], [place], [address] IMMUNOHISTOCHEMISTRY Observed: 04/19/2017 Status: F Source: [place] 12:00 [facility] REPOSITORY Patient: FARHANA CAMERON : 1940 (77/M) Acct Num: [id number] Phys: Ke SCHMITT,Min Unit Num: [id number] Loc: LABSPEC Specimen: [id number] Received: 04/21/17 - 1050 Spec Type: IMMUNO TISSUES TISSUES: E. PROSTATE LEFT - MID SPECIMEN INFORMATION: Tissue Source: E - Left prostate, mid, core biopsy Clinical Info: Elevated PSA Specimen Number: [id number] CPT code: 89105, 04221 METHODOLOGY: Deparaffinized sections of prefer/formalin-fixed tissue or [...] developed and their performance characteristics determined by [facility]. They may not have been cleared or approved by the U.S. Food and Drug Administration. The FDA has determined that such clearance or approval is not necessary. INTERPRETATION: E. Left prostate, mid, core biopsy: Adenocarcinoma. SJ:julia 04/21/17 PHYSICIAN AND INSTITUTION [address] [address] Signed Javy Diaz 04/21/17 <signature on file> Performed By: #### PIMM #### [facility] [address] [place], [address] ALLERGIES ALLERGIES DATE TYPE / CODE NAME / CODE REACTION SEVERITY SOURCE 01/08/2018 Drug adhesive SKIN TEARS Unknown [facility] Allergy/416 tape/[id number]( Hospital 597417(SNOM RXNORM) Repository ED CT) 01/08/2018 Drug rosuvastatin/F00 FLU LIKE SV [facility] Allergy/758 5160836(RXNORM) SYMPTOMS Hospital 045756(SNOM Repository ED CT) 02/12/2013 Drug No Known Unknown [facility] Allergy/416 Allergies/P71590 Hospital 707846(SNOM 0388(RXNORM) Repository ED CT) Drug NO KNOWN [facility] Class/69516 ALLERGIES [facility] [place] 1003(SNOMED Repository CT) ENCOUNTERS ENCOUNTERS ADMIT/DISCHARGE ACCOUNT ADMITTING ENCOUNTER LOCATION SOURCE NUMBER CLASS 03/14/2018 [id number] Ambulatory [facility] ing:LAB Repository 03/09/2018 [id number] [facility] ing:CVS Repository 02/03/2018 [id number] [facility] ing:POLAB3 Repository 01/11/2018 [id number] Ambulatory [facility] ing:MRI Repository 01/08/2018/01/09/20 [id number] Emergency [address] ing:ED Repository 12/20/2017/12/21/19 [id number] Ambulatory BMSBuilding:B [place] [address] [place] Repository 12/20/2017 [id number] Ambulatory BMSBuilding:B Danny [place].[facility] Repository 11/04/2017 [id number] [facility] ing:POLAB3 Repository 08/20/2017 [id number] [facility] ing:LAB Repository 08/19/2017 [id number] Ambulatory [facility] Repository 08/09/2017 [id number] Ambulatory [facility] ing:POLAB3 Repository 07/29/2017 [id number] Ambulatory [facility] ing:POLAB3 Repository 07/14/2017/07/16/19 [id number] Yovanny Dempsey Inpatient [address] ing:SY6Bzvl: Repository DI274Gzv: 1 07/01/2017/07/16/19 [id number] Ambulatory BMSBuilding:W [place] Repository 05/17/2017 [id number] Ambulatory [facility] ing:POLAB3 Repository 05/11/2017 [id number] Ambulatory [facility] ing:CT Repository 05/06/2017 [id number] Ambulatory [facility] ing:NM Repository 04/29/2017 [id number] Ambulatory [facility] ing:POLAB3 Repository 04/19/2017 [id number] Ambulatory [facility] ing:LABSPEC Repository PAYERS PAYERS ENCOUNTER GUARANTOR PAYER SUBSCRIBER SOURCE 03/14/2018 FARHANA R Primary FARHANA R Danny [id number] Insurance:[facility] [id number] Number: Repository [address]Gdz: [phone] [id number] [phone] () Date:2018-03-14 03/14/2018 Secondary FARHANA R Danny Insurance:[facility] [id number] Hospital Number: Repository [id number] Date:3404-60-84ML[address] [address]EN: 03/14/2018 Tertiary NOT GIVENUNK Danny Insurance:SELF PAY [facility] Number: Effective Repository Date:2018-03-14 03/09/2018 FARHANA R Primary FARHANA R Danny [id number] Insurance:MEDICARE MCCONNELLDOB: Community [place] [facility] [id number] Number: Repository [address]Nat: 330 [id number] [phone] (HP) Date:2018-02-24 03/09/2018 Secondary FARHANA R [place] Insurance:MEDICAL MCCONNELLDOB: [facility] [id number] Hospital Number: Repository [id number] Date:2820-15-22US[address] [address]QA: 03/09/2018 Tertiary NOT GIVENUNK Danny Insurance:SELF [facility]Y [facility] Number: Effective Repository Date:2018-02-24 02/03/2018 FARHANA R Primary FARHANA R [place] [id number] Insurance:MEDICARE MCCONNELLDOB: [facility] [id number] Number: Repository [address]Mcd: 330 [id number] [phone] () Date:2018-02-03 02/03/2018 Secondary FARHANA R [place] Insurance:MEDICAL MCCONNELLDOB: [facility] [id number] Hospital Number: Repository [id number] Date:2456-91-54UH[address] [address]ZJ: 02/03/2018 Tertiary NOT GIVENUNK [place] Insurance:SELF PAY [facility] Number: Effective Repository Date:2018-02-03 01/11/2018 FARHANA R Primary FARHANA R [place] [id number] Insurance:MEDICARE MCCONNELLDOB: [facility] [id number] Number: Repository [address]Nze: 330 [id number] [phone] (HP) Date:2018-01-06 01/11/2018 Secondary FARHANA R [place] Insurance:MEDICAL MCCONNELLDOB: [facility] [id number] Hospital Number: Repository [id number] Date:6296-43-34LH[address] [address]JE: 01/11/2018 Tertiary NOT GIVENUNK [place] Insurance:SELF PAY [facility] Number: Effective Repository Date:2018-01-06 01/08/2018 FARHANA R Primary FARHANA R [place] [id number] Insurance:MEDICARE MCCONNELLDOB: Community [place] [facility] [id number] Number: Repository [address]Fag: [phone] [id number] [phone] () Date:2018-01-08 01/08/2018 Secondary FARHANA R Danny Insurance:MEDICAL MCCONNELLDOB: [facility] [id number] Hospital Number: Repository [id number] Date:4474-89-86HC[address] [address]ET: 01/08/2018 Tertiary NOT GIVENUNK Danny Insurance:SELF PAY [facility] Number: Effective Repository Date:2018-01-08 12/20/2017 FARHANA R Primary FARHANA R [place] [id number] Insurance:MEDICARE MCCONNELLDOB: [facility] [place] [facility] [id number], [place] Number: Repository [address]Qcc: [phone] [id number] [phone] () Date:2017-02-05 12/20/2017 Secondary FARHANA R Danny Insurance:MEDICAL MCCONNELLDOB: [facility] [id number] Hospital Number: Repository [id number] Date:0537-59-87LO[address] [address]UM: 12/20/2017 Tertiary NOT GIVENUNK Danny Insurance:SELF PAY [facility] Number: Effective Repository Date:2017-12-20 12/20/2017 Farhana R Primary Farhana R Danny [id number] Insurance:MEDICARE McconnellDOB: Community [place] [facility] [id number] Number: Repository [address]Cwu: 330 [id number] [phone] () Date:2017-12-20 12/20/2017 Secondary Farhana R [place] Insurance:MEDICAL McconnellDOB: [facility] [id number] Hospital Number: Repository [id number] Date:0155-55-91MS[address] [address]IG: 12/20/2017 Tertiary NOT GIVENUNK [place] Insurance:SELF PAY [facility] Number: Effective Repository Date:2017-12-20 11/04/2017 Farhana R Primary Farhana R Danny [id number] Insurance:MEDICARE McconnellDOB: Community [place] [facility] [id number], [place] Number: Repository [address]Gxf: 330 [id number] [phone] () Date:2017-11-04 11/04/2017 Secondary Farhana R Danny Insurance:MEDICAL McconnellDOB: [facility] [id number] Hospital Number: Repository [id number] Date:3206-55-22KG [address] [place] [address]KA: 11/04/2017 Tertiary NOT GIVENUNK [place] Insurance:SELF PAY [facility] Number: Effective Repository Date:2017-11-04 08/20/2017 Farhana R Primary Farhana R Danny [id number] Insurance:MEDICARE McconnellDOB: Community [place] [facility] [id number] Number: Repository [address]Zin: 330 [id number] [phone] () Date:2017-08-20 08/20/2017 Secondary Farhana R [place] Insurance:MEDICAL McconnellDOB: [facility] [id number] Hospital Number: Repository [id number] Date:4807-55-98VY [address] [place] [address]OW: 08/20/2017 Tertiary NOT GIVENUNK Danny Insurance:SELF PAY [facility] Number: Effective Repository Date:2017-08-20 08/09/2017 Farhana R Primary Farhana R Danny [id number] Insurance:MEDICARE McconnellDOB: Community [place] [facility] [id number], [place] Number: Repository [address]Dwo: 330 [id number] [phone] () Date:2017-08-09 08/09/2017 Secondary Farhana R [place] Insurance:MEDICAL McconnellDOB: [facility] [id number] Hospital Number: Repository [id number] Date:3389-78-96WW[address] [address]SM: 08/09/2017 Tertiary NOT GIVENUNK [place] Insurance:SELF PAY [facility] Number: Effective Repository Date:2017-08-09 07/29/2017 Farhana R Primary Farhana R [place] [id number] Insurance:MEDICARE McconnellDOB: [place] [facility] [id number], [place] Number: Repository [address]Gqw: 330 [id number] [phone] () Date:2017-07-29 07/29/2017 Secondary Farhana R [place] Insurance:MEDICAL McconnellDOB: [facility] [id number] Hospital Number: Repository [id number] Date:0581-85-58JJ[address] [address]TD: 07/29/2017 Tertiary NOT GIVENUNK Danny Insurance:SELF PAY [facility] Number: Effective Repository Date:2017-07-29 07/14/2017 Farhana R Primary Farhana R Danny [id number] Insurance:MEDICARE McconnellDOB: Community [place] [facility] [id number], [place] Number: Repository [address]Hby: (011) [id number] [phone] () Date:2017-06-14 07/14/2017 Secondary Farhana R Danny Insurance:MEDICAL McconnellDOB: [facility] [id number] Hospital Number: Repository [id number] Date:9773-67-[address]BT[address] [address]WE: 07/14/2017 Tertiary NOT GIVENUNK [place] Insurance:SELF PAY [facility] Number: Effective Repository Date:2017-06-14 07/01/2017 Farhana R Primary Farhana R Danny [id number] Insurance:MEDICARE McconnellDOB: Community [place] [facility] [id number] Number: Repository [address]Bic: 330 [id number] [phone] () Date:2017-06-14 07/01/2017 Secondary Farhana R [place] Insurance:MEDICAL McconnellDOB: [facility] [id number] Hospital Number: Repository [id number] Date:3677-90-83AO[address] [address]PH: 07/01/2017 Tertiary NOT GIVENUNK Danny Insurance:SELF PAY [facility] Number: Effective Repository Date:2017-07-01 05/17/2017 Farhana R Primary Farhana R Danny [id number] Insurance:MEDICARE McconnellDOB: [facility] [place] [facility] [id number] Number: Repository [id number]: [phone] [id number] [phone] () Date:2017-05-17 05/17/2017 Secondary Farhana R Danny Insurance:MEDICAL McconnellDOB: [facility] [id number] Hospital Number: Repository [id number] Date:[id number] [address]NC: 05/17/2017 Tertiary NOT GIVENUNK Danny Insurance:SELF [facility]Y [facility]: Effective Repository Date:2017-05-17 05/11/2017 Farhana R Primary Farhana R Danny [id number] Insurance:MEDICARE McconnellDOB: [facility] [place] [facility] [id number] Number: Repository [id number]: 330 [id number] [phone] () Date:2017-05-04 05/11/2017 Secondary Farhana R Danny Insurance:MEDICAL McconnellDOB: [facility] [id number] Hospital Number: Repository [id number] Date:[id number] [address]FN: 05/11/2017 Tertiary NOT GIVENUNK [place] Insurance:SELF [facility]Y [facility] Number: Effective Repository Date:2017-05-04 05/06/2017 Farhana R Primary Farhana R [place] [id number] Insurance:MEDICARE McconnellDOB: [facility] [place] [facility] [place] [facility] [id number] Number: Repository [address]Ave: 330 [id number] [phone] () Date:2017-05-04 05/06/2017 Secondary Farhana R Boyds Insurance:MEDICAL McconnellDOB: [facility] [id number] Hospital Number: Repository [id number] Date:[id number] [address]BT: 05/06/2017 Tertiary NOT GIVENUNK [place] Insurance:SELF PAY [facility] Number: Effective Repository Date:2017-05-04 04/29/2017 Farhana R Primary Farhana R [place] [id number] Insurance:MEDICARE McconnellDOB: [facility] [place] [facility] [place] [facility] [id number] Number: Repository [address]Sav: 330 [id number] [phone] () Date:2017-04-29 04/29/2017 Secondary Farhana R Boyds Insurance:MEDICAL McconnellDOB: [place] [id number] Hospital Number: Repository [id number] Date:[id number], [place] [address]KJ: 04/29/2017 Tertiary NOT GIVENUNK [place] Insurance:SELF PAY [facility] Number: Effective Repository Date:2017-04-29 04/19/2017 Farhana R Primary Farhana R [place] [id number] [facility] [id number] Number: Repository [id number]: [phone] [id number] [phone] () Date:2017-04-19 04/19/2017 Secondary Farhana R Danny Insurance:[facility]ICAL [facility] [id number] Hospital Number: Repository [id number] Date:[id number] [facility] [address] [place] [address]EF: 04/19/2017 Tertiary NOT GIVENUNK Danny Insurance:SELF PAY [facility] Number: Effective Repository Date:2017-04-19
== END ==
PROVIDERS: Family Provider Family Medicine Geriatric Medicine; PCP Family Medicine Geriatric Medicine; Referring Provider Urology; Visit Provider Urology
DX: R97.20 Elevated prostate specific antigen [PSA] (principal)
CPT/HCPCS: 36415; 84153

== ENCOUNTER → 2018-05-19 11:02 | Outpatient (CLI) | payer MEDICARE, OTHER, SELFPAY ==
[2018-05-19 12:45] LABS: Absolute Lymphocyte Count 1.36 X10^3/ul (0.83-4.51); Absolute Neutrophil Count 3.3 X10^3/uL (2.0-7.7); Basophil# 0.02 X10^3/uL; Basophil% 0.4 % (0-1); Eosinophil# 0.09 X10^3/uL; Eosinophils% 1.7 % (0-5); Hematocrit 41.3 % (40-54); Hemoglobin 13.3 g/dl (13.0-16.5); Lymphocyte # 1.36 X10^3/ul (4.0); Lymphocyte % 25.7 % (19-41); Mean Corp Hgb Conc 32.2 g/gl (32-36); Mean Corpuscular Volume 86.9 fL (80-94); Mean Platelet Vol. 9.6 fl (6.2-12.0); Monocyte# 0.55 X10^3/uL; Monocyte% 10.4 % (0-10); Neutrophil # 3.25 X10^3/uL (2.7-7.7); Neutrophil % 61.4 % (47-70); Platelet Count 169 K/mm3 (150-450); RBC Distribution Width SD 44.5 fl (35.1-43.9); Red Blood Count 4.75 M/mm3 (4.6-6.2); White Blood Count 5.3 K/mm3 (4.4-11.0)
[2018-05-19 12:49] LABS: POSITIVE COUNT NO; POSITIVE DIFFERENTIAL NO; POSITIVE MORPHOLOGY NO
[2018-05-19 12:56] LABS: Hemoglobin A1c 8.4 % (4.2-6.3)
[2018-05-19 12:57] LABS: ALB/GLOB Ratio 1.1 RATIO (0.9-2.4); AST(SGOT) 20 U/L (15-37); Alanine Aminotransfer ALT/SGPT 26 U/L (16-61); Albumin, Serum 3.5 g/dL (3.2-5.0); Alkaline Phosphatase 95 U/L (45-117); Anion Gap 9 (5-15); BUN 25 mg/dL (7-18); BUN/Creat Ratio 22.5 RATIO (10-20); Chloride 104 mmol/L (98-107); Cholesterol 83 mg/dL (200); Creatinine, Serum 1.11 mg/dL (0.70-1.30); EST Glomerular Filtration Rate 68 mL/min (>60); Est Glom Filt Rate - Afr Amer 83 mL/min (>60); Globulin 3.1 g/dL (2.2-4.2); Glucose 140 mg/dL (74-106); High Density Lipoprotein 40 mg/dL; Potassium 4.2 mmol/L (3.5-5.1); Protein, Total 6.6 g/dL (6.4-8.2); Sodium Level 139 mmol/L (136-145); Thyroid Stim Hormone (TSH) 1.78 uIU/mL (0.358-3.74); Triglycerides 157 mg/dL; Very Low Density Lipoprotein 31 mg/dL (5-40)
[2018-05-19 12:58] LABS: Vitamin D,25 Hydroxy 51.5 ng/mL (29.95-100.01)
== END ==
PROVIDERS: Family Provider Family Medicine Geriatric Medicine; PCP Family Medicine Geriatric Medicine; Visit Provider Family Medicine Geriatric Medicine
DX: E11.9 Type 2 diabetes mellitus without complications (principal); E55.9 Vitamin D deficiency, unspecified; E78.49 Other hyperlipidemia; I10 Essential (primary) hypertension
CPT/HCPCS: 36415; 80053; 80061; 82306; 83036; 84443; 85025

== ENCOUNTER → 2018-08-08 13:38 | Outpatient (CLI) | payer MEDICARE, OTHER, SELFPAY ==
[2018-08-08 18:10] LABS: AST(SGOT) 20 U/L (15-37); Alanine Aminotransfer ALT/SGPT 23 U/L (16-61); Albumin, Serum 3.4 g/dL (3.2-5.0); Alkaline Phosphatase 92 U/L (45-117); Anion Gap 14 (5-15); BUN 22 mg/dL (7-18); Calcium,Total 9.2 mg/dL (8.5-10.1); Chloride 103 mmol/L (98-107); Cholesterol 89 mg/dL (200); Creatinine, Serum 1.16 mg/dL (0.70-1.30); EST Glomerular Filtration Rate 65 mL/min (>60); Est Glom Filt Rate - Afr Amer 79 mL/min (>60); Globulin 3.5 g/dL (2.2-4.2); Glucose 206 mg/dL (74-106); High Density Lipoprotein 39 mg/dL; Potassium 4.4 mmol/L (3.5-5.1); Protein, Total 6.9 g/dL (6.4-8.2); Sodium Level 139 mmol/L (136-145); Thyroid Stim Hormone (TSH) 2.21 uIU/mL (0.358-3.74); Triglycerides 205 mg/dL; Very Low Density Lipoprotein 41 mg/dL (5-40)
[2018-08-08 18:33] LABS: Absolute Lymphocyte Count 1.84 X10^3/ul (0.83-4.51); Absolute Neutrophil Count 4.5 X10^3/uL (2.0-7.7); Basophil# 0.03 X10^3/uL; Basophil% 0.4 % (0-1); Eosinophil# 0.07 X10^3/uL; Hematocrit 41.2 % (40-54); Hemoglobin 13.8 g/dl (13.0-16.5); Lymphocyte # 1.84 X10^3/ul (4.0); Lymphocyte % 26.2 % (19-41); Mean Corp Hgb Conc 33.5 g/gl (32-36); Mean Corpuscular Hgb 28.9 pg (27.0-32.0); Mean Corpuscular Volume 86.4 fL (80-94); Mean Platelet Vol. 10.6 fl (6.2-12.0); Monocyte# 0.53 X10^3/uL; Monocyte% 7.6 % (0-10); Neutrophil # 4.53 X10^3/uL (2.7-7.7); Neutrophil % 64.7 % (47-70); Platelet Count 177 K/mm3 (150-450); RBC Distribution Width SD 43.7 fl (35.1-43.9); Red Blood Count 4.77 M/mm3 (4.6-6.2)
[2018-08-08 18:35] LABS: POSITIVE COUNT NO; POSITIVE DIFFERENTIAL NO; POSITIVE MORPHOLOGY NO
[2018-08-08 18:51] LABS: Hemoglobin A1c 7.8 % (4.2-6.3)
== END ==
PROVIDERS: Family Provider Family Medicine Geriatric Medicine; PCP Family Medicine Geriatric Medicine; Visit Provider Family Medicine Geriatric Medicine
DX: E11.9 Type 2 diabetes mellitus without complications (principal); E55.9 Vitamin D deficiency, unspecified; E78.49 Other hyperlipidemia
CPT/HCPCS: 36415; 80053; 80061; 82306; 83036; 84443; 85025

== ENCOUNTER → 2018-09-08 08:31 | Outpatient (CLI) | payer MEDICARE, OTHER, SELFPAY ==
[2018-09-08 10:16] LABS: PSA,Total- Diagnostic 0.03 ng/mL (0.0-4.0)
== END ==
PROVIDERS: Family Provider Family Medicine Geriatric Medicine; PCP Family Medicine Geriatric Medicine; Referring Provider Urology; Visit Provider Urology
DX: C61 Malignant neoplasm of prostate (principal); E29.1 Testicular hypofunction
CPT/HCPCS: 36415; 84153

== ENCOUNTER → 2018-09-12 14:16 | Outpatient (CLI) | payer MEDICARE, OTHER, SELFPAY | PROVIDERS: Family Provider Family Medicine Geriatric Medicine; PCP Family Medicine Geriatric Medicine; Referring Provider Urology; Visit Provider Urology | DX: C61 Malignant neoplasm of prostate (principal); E29.1 Testicular hypofunction | CPT/HCPCS: 84403 ==

== ENCOUNTER → 2018-11-07 14:14 | Outpatient (CLI) | payer MEDICARE, OTHER, SELFPAY ==
[2018-11-07 17:14] LABS: Absolute Lymphocyte Count 1.22 X10^3/uL (0.83-4.51); Absolute Neutrophil Count 4.2 X10^3/uL (2.0-7.7); Basophil# 0.03 X10^3/uL; Basophil% 0.5 % (0-1); Eosinophils% 1.6 % (0-5); Hematocrit 40.8 % (40-54); Hemoglobin 13.2 g/dL (13.0-16.5); Lymphocyte # 1.22 X10^3/ul (4.0); Lymphocyte % 19.5 % (19-41); Mean Corp Hgb Conc 32.4 g/dL (32-36); Mean Corpuscular Hgb 28.6 pg (27.0-32.0); Mean Corpuscular Volume 88.3 fL (80-94); Mean Platelet Vol. 9.5 fl (6.2-12.0); Monocyte# 0.67 X10^3/uL; Monocyte% 10.7 % (0-10); NRBC Flagged by Analyzer 0 % (0-5); Neutrophil % 66.9 % (47-70); Platelet Count 189 K/mm3 (150-450); RBC Distribution Width CV 13.8 % (11.6-14.6); RBC Distribution Width SD 44.3 fl (35.1-43.9); Red Blood Count 4.62 M/mm3 (4.6-6.2); White Blood Count 6.3 K/mm3 (4.4-11.0)
[2018-11-07 17:34] LABS: Vitamin D,25 Hydroxy 40.6 ng/mL (29.95-100.01)
[2018-11-07 17:37] LABS: AST(SGOT) 18 U/L (15-37); Alanine Aminotransfer ALT/SGPT 21 U/L (16-61); Albumin, Serum 3.3 g/dL (3.2-5.0); Alkaline Phosphatase 112 U/L (45-117); Anion Gap 11 (5-15); BUN 24 mg/dL (7-18); BUN/Creat Ratio 23.1 RATIO (10-20); Calcium,Total 8.5 mg/dL (8.5-10.1); Chloride 105 mmol/L (98-107); Creatinine, Serum 1.04 mg/dL (0.70-1.30); EST Glomerular Filtration Rate 74 mL/min (>60); Est Glom Filt Rate - Afr Amer 89 mL/min (>60); Globulin 3.3 g/dL (2.2-4.2); Glucose 172 mg/dL (74-106); Potassium 4.1 mmol/L (3.5-5.1); Protein, Total 6.6 g/dL (6.4-8.2); Sodium Level 142 mmol/L (136-145); Thyroid Stim Hormone (TSH) 2.07 uIU/mL (0.358-3.74)
== END ==
PROVIDERS: Family Provider Family Medicine Geriatric Medicine; PCP Family Medicine Geriatric Medicine; Visit Provider Family Medicine Geriatric Medicine
DX: E11.9 Type 2 diabetes mellitus without complications (principal); E55.9 Vitamin D deficiency, unspecified; I10 Essential (primary) hypertension
CPT/HCPCS: 36415; 80053; 82306; 84443; 85025

== ENCOUNTER → 2019-02-06 14:55 | Outpatient (CLI) | payer MEDICARE, OTHER, SELFPAY ==
[2018-12-21 14:36] VITALS: BMI 29.0
[2019-02-06 16:44] LABS: Absolute Lymphocyte Count 1.44 X10^3/uL (0.83-4.51); Basophil# 0.04 X10^3/uL; Basophil% 0.6 % (0-1); Eosinophil# 0.07 X10^3/uL; Eosinophils% 1.1 % (0-5); Hematocrit 42.5 % (40-54); Hemoglobin 13.8 g/dL (13.0-16.5); Lymphocyte # 1.44 X10^3/ul (4.0); Lymphocyte % 22.7 % (19-41); Mean Corp Hgb Conc 32.5 g/dL (32-36); Mean Corpuscular Hgb 28.5 pg (27.0-32.0); Mean Corpuscular Volume 87.6 fL (80-94); Mean Platelet Vol. 9.9 fl (6.2-12.0); Monocyte# 0.76 X10^3/uL; NRBC Flagged by Analyzer 0 % (0-5); Neutrophil # 3.98 X10^3/uL (2.7-7.7); Platelet Count 194 K/mm3 (150-450); RBC Distribution Width CV 13.4 % (11.6-14.6); RBC Distribution Width SD 42.8 fl (35.1-43.9); Red Blood Count 4.85 M/mm3 (4.6-6.2); White Blood Count 6.3 K/mm3 (4.4-11.0)
[2019-02-06 17:05] LABS: Vitamin D,25 Hydroxy 29.9 ng/mL (29.95-100.01)
[2019-02-06 17:18] LABS: ALB/GLOB Ratio 1.1 RATIO (0.9-2.4); AST(SGOT) 13 U/L (15-37); Alanine Aminotransfer ALT/SGPT 22 U/L (16-61); Albumin, Serum 3.6 g/dL (3.2-5.0); Alkaline Phosphatase 100 U/L (45-117); Anion Gap 10 (5-15); BUN 29 mg/dL (7-18); BUN/Creat Ratio 23.8 RATIO (10-20); Calcium,Total 9.2 mg/dL (8.5-10.1); Chloride 104 mmol/L (98-107); Cholesterol 91 mg/dL (200); Creatinine, Serum 1.22 mg/dL (0.70-1.30); EST Glomerular Filtration Rate 61 mL/min (>60); Est Glom Filt Rate - Afr Amer 74 mL/min (>60); Globulin 3.4 g/dL (2.2-4.2); Glucose 186 mg/dL (74-106); High Density Lipoprotein 41 mg/dL; Potassium 4.4 mmol/L (3.5-5.1); Sodium Level 142 mmol/L (136-145); Thyroid Stim Hormone (TSH) 2.34 uIU/mL (0.358-3.74); Triglycerides 294 mg/dL; Very Low Density Lipoprotein 59 mg/dL (5-40)
[2019-02-06 17:34] LABS: Hemoglobin A1c 8.6 % (4.2-6.3)
== END ==
PROVIDERS: Family Provider Family Medicine Geriatric Medicine; PCP Family Medicine Geriatric Medicine; Visit Provider Family Medicine Geriatric Medicine
DX: E11.9 Type 2 diabetes mellitus without complications (principal); E55.9 Vitamin D deficiency, unspecified; E78.5 Hyperlipidemia, unspecified; I10 Essential (primary) hypertension
CPT/HCPCS: 36415; 80053; 80061; 82306; 83036; 84443; 85025

== ENCOUNTER → 2019-03-16 09:02 | Outpatient (CLI) | payer MEDICARE, OTHER, SELFPAY ==
[2018-12-21 14:36] VITALS: BMI 29.0
[2019-03-16 10:24] LABS: PSA,Total- Diagnostic < 0.01 ng/mL (0.0-4.0)
== END ==
PROVIDERS: PCP Family Medicine Geriatric Medicine; Referring Provider Urology; Visit Provider Urology
DX: C61 Malignant neoplasm of prostate (principal)
CPT/HCPCS: 36415; 84153

== ENCOUNTER → 2019-05-05 13:00 | Outpatient (CLI) | payer MEDICARE, OTHER, SELFPAY ==
[2018-12-21 14:36] VITALS: BMI 29.0
[2019-05-05 13:54] LABS: Absolute Lymphocyte Count 1.18 X10^3/uL (0.83-4.51); Absolute Neutrophil Count 3.5 X10^3/uL (2.0-7.7); Basophil# 0.03 X10^3/uL; Basophil% 0.5 % (0-1); Eosinophil# 0.08 X10^3/uL; Eosinophils% 1.4 % (0-5); Hematocrit 41.3 % (40-54); Hemoglobin 13.6 g/dL (13.0-16.5); Lymphocyte # 1.18 X10^3/ul (4.0); Lymphocyte % 21.1 % (19-41); Mean Corp Hgb Conc 32.9 g/dL (32-36); Mean Corpuscular Hgb 28.3 pg (27.0-32.0); Mean Platelet Vol. 9.5 fl (6.2-12.0); Monocyte# 0.77 X10^3/uL; Monocyte% 13.8 % (0-10); NRBC Flagged by Analyzer 0 % (0-5); Neutrophil % 62.5 % (47-70); Platelet Count 175 K/mm3 (150-450); RBC Distribution Width CV 13.8 % (11.6-14.6); RBC Distribution Width SD 43.4 fl (35.1-43.9); White Blood Count 5.6 K/mm3 (4.4-11.0)
[2019-05-05 14:17] LABS: Hemoglobin A1c 9.2 % (4.2-6.3)
[2019-05-05 14:29] LABS: AST(SGOT) 13 U/L (15-37); Alanine Aminotransfer ALT/SGPT 16 U/L (16-61); Albumin, Serum 3.5 g/dL (3.2-5.0); Alkaline Phosphatase 96 U/L (45-117); Anion Gap 6 (5-15); BUN 27 mg/dL (7-18); BUN/Creat Ratio 24.3 RATIO (10-20); Calcium,Total 8.8 mg/dL (8.5-10.1); Chloride 106 mmol/L (98-107); Cholesterol 108 mg/dL (200); Creatinine, Serum 1.11 mg/dL (0.70-1.30); EST Glomerular Filtration Rate 68 mL/min (>60); Est Glom Filt Rate - Afr Amer 83 mL/min (>60); Globulin 3.5 g/dL (2.2-4.2); Glucose 143 mg/dL (74-106); High Density Lipoprotein 41 mg/dL; Potassium 4.3 mmol/L (3.5-5.1); Sodium Level 138 mmol/L (136-145); Thyroid Stim Hormone (TSH) 2.05 uIU/mL (0.358-3.74); Triglycerides 210 mg/dL; Very Low Density Lipoprotein 42 mg/dL (5-40)
[2019-05-06 07:32] LABS: Vitamin D,25 Hydroxy 47.1 ng/mL
== END ==
PROVIDERS: Family Provider Family Medicine Geriatric Medicine; PCP Family Medicine Geriatric Medicine; Referring Provider Family Medicine Geriatric Medicine; Visit Provider Family Medicine Geriatric Medicine
DX: E11.9 Type 2 diabetes mellitus without complications (principal); E55.9 Vitamin D deficiency, unspecified; E78.5 Hyperlipidemia, unspecified; I10 Essential (primary) hypertension
CPT/HCPCS: 36415; 80053; 80061; 82306; 83036; 84443; 85025

== ENCOUNTER → 2019-07-24 16:06 | Outpatient (CLI) | payer MEDICARE, OTHER, SELFPAY ==
[2018-12-21 14:36] VITALS: BMI 29.0
[2019-07-24 16:58] LABS: Absolute Lymphocyte Count 1.31 X10^3/uL (0.83-4.51); Absolute Neutrophil Count 4.3 X10^3/uL (2.0-7.7); Basophil# 0.03 X10^3/uL; Basophil% 0.5 % (0-1); Eosinophil# 0.09 X10^3/uL; Eosinophils% 1.4 % (0-5); Hematocrit 38.9 % (40-54); Hemoglobin 12.7 g/dL (13.0-16.5); Lymphocyte # 1.31 X10^3/ul (4.0); Mean Corp Hgb Conc 32.6 g/dL (32-36); Mean Corpuscular Hgb 28.5 pg (27.0-32.0); Mean Corpuscular Volume 87.2 fL (80-94); Mean Platelet Vol. 9.9 fl (6.2-12.0); Monocyte# 0.72 X10^3/uL; NRBC Flagged by Analyzer 0 % (0-5); Neutrophil # 4.34 X10^3/uL (2.7-7.7); Neutrophil % 66.2 % (47-70); Platelet Count 179 K/mm3 (150-450); RBC Distribution Width CV 13.3 % (11.6-14.6); RBC Distribution Width SD 42.3 fl (35.1-43.9); Red Blood Count 4.46 M/mm3 (4.6-6.2); White Blood Count 6.6 K/mm3 (4.4-11.0)
[2019-07-24 17:17] LABS: Anion Gap 8 (5-15); BUN 23 mg/dL (7-18); BUN/Creat Ratio 21.7 RATIO (10-20); Calcium,Total 8.5 mg/dL (8.5-10.1); Chloride 106 mmol/L (98-107); Creatinine, Serum 1.06 mg/dL (0.70-1.30); EST Glomerular Filtration Rate 72 mL/min (>60); Est Glom Filt Rate - Afr Amer 87 mL/min (>60); Glucose 184 mg/dL (74-106); Potassium 4.1 mmol/L (3.5-5.1); Sodium Level 137 mmol/L (136-145)
[2019-07-24 18:08] LABS: M R Staph aureus DNA By PCR Negative (Negative); Probe Check PASS; Specimen Processing Control PASS; Staph aureus DNA By PCR NEGATIVE (Negative)
[2019-07-24 19:00] LABS: Erythrocyte Sedimentation Rate 34 mm/hr (0-20)
== END ==
PROVIDERS: PCP Family Medicine Geriatric Medicine; Visit Provider Family Medicine Geriatric Medicine
DX: L03.90 Cellulitis, unspecified (principal)
CPT/HCPCS: 36415; 80048; 85025; 85652; 86140; 87070; 87205; 87640

== ENCOUNTER → 2019-08-10 16:00 | Outpatient (CLI) | payer MEDICARE, OTHER, SELFPAY ==
[2018-12-21 14:36] VITALS: BMI 29.0
[2019-08-10 17:29] LABS: Absolute Lymphocyte Count 1.33 X10^3/uL (0.83-4.51); Absolute Neutrophil Count 3.1 X10^3/uL (2.0-7.7); Basophil# 0.05 X10^3/uL; Eosinophil# 0.08 X10^3/uL; Eosinophils% 1.5 % (0-5); Hematocrit 42.2 % (40-54); Hemoglobin 13.3 g/dL (13.0-16.5); Lymphocyte # 1.33 X10^3/ul (4.0); Lymphocyte % 25.6 % (19-41); Mean Corp Hgb Conc 31.5 g/dL (32-36); Mean Corpuscular Hgb 28.2 pg (27.0-32.0); Mean Corpuscular Volume 89.4 fL (80-94); Mean Platelet Vol. 9.4 fl (6.2-12.0); Monocyte# 0.61 X10^3/uL; Monocyte% 11.7 % (0-10); NRBC Flagged by Analyzer 0 % (0-5); Neutrophil # 3.08 X10^3/uL (2.7-7.7); Neutrophil % 59.2 % (47-70); Platelet Count 203 K/mm3 (150-450); RBC Distribution Width SD 45.1 fl (35.1-43.9); Red Blood Count 4.72 M/mm3 (4.6-6.2); White Blood Count 5.2 K/mm3 (4.4-11.0)
[2019-08-10 17:47] LABS: Vitamin D,25 Hydroxy 39.4 ng/mL
[2019-08-10 18:12] LABS: AST(SGOT) 15 U/L (15-37); Alanine Aminotransfer ALT/SGPT 24 U/L (16-61); Albumin, Serum 3.4 g/dL (3.2-5.0); Alkaline Phosphatase 74 U/L (45-117); Anion Gap 9 (5-15); BUN 21 mg/dL (7-18); BUN/Creat Ratio 18.3 RATIO (10-20); Calcium,Total 8.9 mg/dL (8.5-10.1); Chloride 102 mmol/L (98-107); Cholesterol 166 mg/dL (200); Creatinine, Serum 1.15 mg/dL (0.70-1.30); EST Glomerular Filtration Rate 66 mL/min (>60); Est Glom Filt Rate - Afr Amer 79 mL/min (>60); Globulin 3.5 g/dL (2.2-4.2); Glucose 260 mg/dL (74-106); High Density Lipoprotein 42 mg/dL; Potassium 4.2 mmol/L (3.5-5.1); Protein, Total 6.9 g/dL (6.4-8.2); Sodium Level 139 mmol/L (136-145); Thyroid Stim Hormone (TSH) 2.49 uIU/mL (0.358-3.74); Triglycerides 501 mg/dL
[2019-08-11 12:15] LABS: Hemoglobin A1c 8.5 % (3.8-5.6)
== END ==
PROVIDERS: PCP Family Medicine Geriatric Medicine; Visit Provider Family Medicine Geriatric Medicine
DX: E11.9 Type 2 diabetes mellitus without complications (principal); E55.9 Vitamin D deficiency, unspecified; I10 Essential (primary) hypertension; E78.5 Hyperlipidemia, unspecified
CPT/HCPCS: 36415; 80053; 80061; 82306; 83036; 84443; 85025

== ENCOUNTER → 2019-08-29 11:44 | Outpatient (CLI) | payer MEDICARE, OTHER, SELFPAY ==
[2018-12-21 14:36] VITALS: BMI 29.0
[2019-08-29 14:36] LABS: M R Staph aureus DNA By PCR Negative (Negative); Probe Check PASS; Specimen Processing Control PASS
[2019-08-30 10:07] LABS: Staph aureus DNA By PCR NEGATIVE (Negative)
== END ==
PROVIDERS: PCP Family Medicine Geriatric Medicine; Visit Provider Family Medicine Geriatric Medicine
DX: S41.109A Unspecified open wound of unspecified upper arm, initial encounter (principal); B95.62 Methicillin resistant Staphylococcus aureus infection as the cause of diseases classified elsewhere
CPT/HCPCS: 87070; 87205; 87640

== ENCOUNTER → 2019-09-20 12:07 | Outpatient (CLI) | payer MEDICARE, OTHER, SELFPAY ==
[2018-12-21 14:36] VITALS: BMI 29.0
[2019-09-20 12:52] LABS: PSA,Total- Diagnostic 0.02 ng/mL (0.0-4.0)
== END ==
PROVIDERS: PCP Family Medicine Geriatric Medicine; Referring Provider Urology; Visit Provider Urology
DX: C61 Malignant neoplasm of prostate (principal)
CPT/HCPCS: 36415; 84153

== ENCOUNTER → 2019-11-13 14:40 | Outpatient (CLI) | payer MEDICARE, OTHER, SELFPAY ==
[2018-12-21 14:36] VITALS: BMI 29.0
[2019-11-13 17:32] LABS: Absolute Neutrophil Count 3.6 X10^3/uL (2.0-7.7); Basophil# 0.03 X10^3/uL; Basophil% 0.6 % (0-1); Eosinophil# 0.08 X10^3/uL; Eosinophils% 1.5 % (0-5); Hematocrit 41.1 % (40-54); Hemoglobin 13.2 g/dL (13.0-16.5); Lymphocyte % 20.2 % (19-41); Mean Corp Hgb Conc 32.1 g/dL (32-36); Mean Corpuscular Hgb 28.5 pg (27.0-32.0); Mean Corpuscular Volume 88.8 fL (80-94); Monocyte# 0.63 X10^3/uL; Monocyte% 11.6 % (0-10); NRBC Flagged by Analyzer 0 % (0-5); Neutrophil # 3.57 X10^3/uL (2.7-7.7); Neutrophil % 65.4 % (47-70); Platelet Count 200 K/mm3 (150-450); RBC Distribution Width CV 14.2 % (11.6-14.6); RBC Distribution Width SD 45.1 fl (35.1-43.9); Red Blood Count 4.63 M/mm3 (4.6-6.2); White Blood Count 5.5 K/mm3 (4.4-11.0)
[2019-11-13 17:43] LABS: Vitamin D,25 Hydroxy 43.1 ng/mL
[2019-11-13 17:58] LABS: AST(SGOT) 16 U/L (15-37); Alanine Aminotransfer ALT/SGPT 21 U/L (16-61); Albumin, Serum 3.4 g/dL (3.2-5.0); Alkaline Phosphatase 77 U/L (45-117); Anion Gap 8 (5-15); BUN 22 mg/dL (7-18); BUN/Creat Ratio 17.7 RATIO (10-20); Calcium,Total 8.7 mg/dL (8.5-10.1); Chloride 105 mmol/L (98-107); Cholesterol 115 mg/dL (200); Creatinine, Serum 1.24 mg/dL (0.70-1.30); EST Glomerular Filtration Rate 60 mL/min (>60); Est Glom Filt Rate - Afr Amer 73 mL/min (>60); Globulin 3.5 g/dL (2.2-4.2); Glucose 183 mg/dL (74-106); High Density Lipoprotein 41 mg/dL; Potassium 4.7 mmol/L (3.5-5.1); Protein, Total 6.9 g/dL (6.4-8.2); Sodium Level 140 mmol/L (136-145); Thyroid Stim Hormone (TSH) 2.03 uIU/mL (0.358-3.74); Triglycerides 325 mg/dL; Very Low Density Lipoprotein 65 mg/dL (5-40)
[2019-11-13 18:01] LABS: Hemoglobin A1c 8.2 % (3.8-5.6)
== END ==
PROVIDERS: PCP Family Medicine Geriatric Medicine; Visit Provider Family Medicine Geriatric Medicine
DX: E11.9 Type 2 diabetes mellitus without complications (principal); E55.9 Vitamin D deficiency, unspecified; E78.5 Hyperlipidemia, unspecified; I10 Essential (primary) hypertension
CPT/HCPCS: 36415; 80053; 80061; 82306; 83036; 84443; 85025

== ENCOUNTER → 2020-01-01 | Outpatient (CLI) | payer MEDICARE, OTHER, SELFPAY ==
[2018-12-21 14:36] VITALS: BMI 29.0
[2020-01-01 20:56] LABS: M R Staph aureus DNA By PCR Negative (Negative); Probe Check PASS; Staph aureus DNA By PCR NEGATIVE (Negative)
== END | disposition home or self-care (01) ==
PROVIDERS: PCP Family Medicine Geriatric Medicine; Referring Provider Family Medicine Geriatric Medicine; Visit Provider Family Medicine Geriatric Medicine
DX: S11.90XA Unspecified open wound of unspecified part of neck, initial encounter (principal); B95.62 Methicillin resistant Staphylococcus aureus infection as the cause of diseases classified elsewhere
CPT/HCPCS: 87070; 87075; 87186; 87205; 87640

== ENCOUNTER → 2020-02-01 06:47 | Outpatient (CLI) | payer MEDICARE, OTHER, SELFPAY ==
[2020-01-12 15:16] VITALS: BMI 30.4
--- NOTE | 2020-02-01 09:11 | STRESSREP_ITS ---
Stress Test Report Date: 02-01-2020 Procedure: Pharmacologic stress nuclear imaging study Indications: CAD Consent: Per the patient Procedure: The patient underwent pharmacologic (Regadenoson) evaluation with a peak heart rate of 81 beats per minute (56%predicted maximal heart rate) and a peak blood pressure of 130/68 mmHg. The baseline ECG demonstrated sinus bradycardia; right bundle branch block pattern . The peak pharmacologic ECG demonstrated no obvious ECG changes. There were no cardiac dysrhythmias pretest, during pharmacologic infusion, or recovery. There was no complaint of chest discomfort during pharmacologic infusion or recovery. The examination was discontinued secondary to completion of protocol. Impression: 1. Pharmacologic (Regadenoson) evaluation 2. Peak pharmacologic ECG with no obvious ECG changes. 3. There were no cardiac dysrhythmias pretest, during pharmacologic infusion, or recovery. 4. Nuclear images pending Myocardial perfusion imaging study: Technique: The patient was injected with 14.4 millicuries of technetium 99m Cardiolite and subsequently rest SPECT Cardiolite nuclear imaging was obtained in the horizontal long, vertical long, and short axis views. The patient underwent pharmacologic (Regadenoson) evaluation with a peak heart rate of 81 beats per minute (56% percent predicted maximal heart rate) and a peak blood pressure of 130/68 mmHg. The patient was injected with 44.3 millicuries of technetium 99m Cardiolite and subsequently stress SPECT Cardiolite nuclear imaging was obtained in the horizontal long, vertical long, and short axis views. A gated Cardiolite study at peak stress was obtained. Interpretation: Rest and stress SPECT Cardiolite nuclear imaging status post realignment, normalization, and attenuation correction demonstrate relative uniform tracer uptake and myocardial perfusion appearing within normal limits. There is end systolic thickening and brightening. The gated Cardiolite study demonstrates myocardial thickening and inward wall motion. The reported LVEF is 75%. Impression: 1. Rest and stress SPECT Cardiolite nuclear imaging demonstrate relative u niform tracer uptake and myocardial perfusion appearing within normal limits. 2. The gated Cardiolite study reports an LVEF of 75%. This note was generated with Pictour.usation software. It may contain incorrect words, spelling, and punctuation that were not noted in checking the note before signing.
== END ==
PROVIDERS: PCP Family Medicine Geriatric Medicine; Referring Provider Internal Medicine Cardiovascular Disease; Visit Provider Internal Medicine Cardiovascular Disease
DX: I25.10 Atherosclerotic heart disease of native coronary artery without angina pectoris (principal); R07.89 Other chest pain
CPT/HCPCS: 78452; 93017; A9500; A4216; J2785

== ENCOUNTER → 2020-02-13 13:53 | Outpatient (CLI) | payer MEDICARE, OTHER, SELFPAY ==
[2018-12-21 14:36] VITALS: BMI 29.0
[2020-01-12 15:16] VITALS: BMI 30.4
[2020-02-13 14:34] LABS: Absolute Lymphocyte Count 1.25 X10^3/uL (0.83-4.51); Absolute Neutrophil Count 3.4 X10^3/uL (2.0-7.7); Basophil# 0.03 X10^3/uL; Basophil% 0.6 % (0-1); Eosinophil# 0.06 X10^3/uL; Eosinophils% 1.1 % (0-5); Hematocrit 41.6 % (40-54); Hemoglobin 13.2 g/dL (13.0-16.5); Lymphocyte # 1.25 X10^3/ul (4.0); Lymphocyte % 23.5 % (19-41); Mean Corp Hgb Conc 31.7 g/dL (32-36); Mean Corpuscular Hgb 27.6 pg (27.0-32.0); Mean Platelet Vol. 9.6 fl (6.2-12.0); Monocyte# 0.56 X10^3/uL; Monocyte% 10.5 % (0-10); NRBC Flagged by Analyzer 0 % (0-5); Neutrophil # 3.37 X10^3/uL (2.7-7.7); Neutrophil % 63.5 % (47-70); Platelet Count 188 K/mm3 (150-450); RBC Distribution Width CV 13.4 % (11.6-14.6); RBC Distribution Width SD 42.5 fl (35.1-43.9); Red Blood Count 4.78 M/mm3 (4.6-6.2); White Blood Count 5.3 K/mm3 (4.4-11.0)
[2020-02-13 14:55] LABS: Hemoglobin A1c 8.8 % (3.8-5.6)
[2020-02-13 15:01] LABS: Vitamin D,25 Hydroxy 40.5 ng/mL
[2020-02-13 15:08] LABS: AST(SGOT) 12 U/L (15-37); Alanine Aminotransfer ALT/SGPT 24 U/L (16-61); Albumin, Serum 3.3 g/dL (3.2-5.0); Alkaline Phosphatase 98 U/L (45-117); Anion Gap 8 (5-15); BUN 25 mg/dL (7-18); BUN/Creat Ratio 18.4 RATIO (10-20); Calcium,Total 8.6 mg/dL (8.5-10.1); Chloride 104 mmol/L (98-107); Cholesterol 106 mg/dL (200); Creatinine, Serum 1.36 mg/dL (0.70-1.30); EST Glomerular Filtration Rate 54 mL/min (>60); Est Glom Filt Rate - Afr Amer 65 mL/min (>60); Globulin 3.4 g/dL (2.2-4.2); Glucose 335 mg/dL (74-106); High Density Lipoprotein 41 mg/dL; Potassium 4.1 mmol/L (3.5-5.1); Protein, Total 6.7 g/dL (6.4-8.2); Sodium Level 138 mmol/L (136-145); Thyroid Stim Hormone (TSH) 1.88 uIU/mL (0.358-3.74); Triglycerides 303 mg/dL; Very Low Density Lipoprotein 61 mg/dL (5-40)
== END ==
LOC: LAB.FUTURE 13:54 → POLAB3 02-14 11:42
PROVIDERS: PCP Family Medicine Geriatric Medicine; Visit Provider Family Medicine Geriatric Medicine
DX: I10 Essential (primary) hypertension (principal); E11.9 Type 2 diabetes mellitus without complications; E55.9 Vitamin D deficiency, unspecified; E78.5 Hyperlipidemia, unspecified
CPT/HCPCS: 36415; 80053; 80061; 82306; 83036; 84443; 85025

== ENCOUNTER → 2020-03-28 16:22 | Outpatient (CLI) | payer MEDICARE, OTHER, SELFPAY ==
[2020-01-12 15:16] VITALS: BMI 30.4
[2020-03-28 17:45] LABS: PSA,Total- Diagnostic < 0.01 ng/mL (0.0-4.0)
== END ==
PROVIDERS: PCP Family Medicine Geriatric Medicine; Referring Provider Urology; Visit Provider Urology
DX: C61 Malignant neoplasm of prostate (principal)
CPT/HCPCS: 36415; 84153

== ENCOUNTER → 2020-04-01 14:04 | Outpatient (CLI) | payer MEDICARE, OTHER, SELFPAY ==
[2020-01-12 15:16] VITALS: BMI 30.4
== END ==
PROVIDERS: PCP Family Medicine Geriatric Medicine; Referring Provider Urology; Visit Provider Urology
DX: E29.1 Testicular hypofunction (principal)
CPT/HCPCS: 36415; 84403

== ENCOUNTER → 2020-05-02 14:15 | Outpatient (CLI) | payer MEDICARE, OTHER, SELFPAY ==
[2020-01-12 15:16] VITALS: BMI 30.4
--- NOTE | 2020-05-02 14:18 | CT_ITS ---
STUDY: CT ABDOMEN AND PELVIS WITHOUT CONTRAST REASON FOR EXAM: Male, 80 years old. GROSS HEMATURIA X 1 WK RADIATION DOSAGE (If Supplied By Facility): CTDIvol = ( 13.19 ) mGy, DLP = ( 643.87 ) mGycm TECHNIQUE: Transaxial images were obtained from the dome of the diaphragm to the symphysis pubis without oral contrast, and without intravenous contrast. Sagittal and coronal images were reconstructed. Individualized dose optimization techniques were used for this CT. COMPARISON: 05/11/2017 FINDINGS: The visualized lung bases are unremarkable. The visualized portions of the heart are within normal limits. Normal liver. There is non-visualization of the gallbladder, which may be secondary to either contraction or a prior cholecystectomy. Normal spleen. Normal pancreas. Normal bilateral adrenal glands. Normal right kidney. Normal left kidney. Normal visualized stomach. Normal small intestine. Normal colon. The appendix is visualized and appears normal. There is diffuse atherosclerotic calcification of the abdominal aorta, without a demonstrated aneurysm. Normal inferior vena cava. Normal retroperitoneum. Normal urinary bladder. Normal abdominal wall. There are diffuse degenerative changes of the visualized lumbar spine. CT/Abdomen/Pelvis without Cont IMPRESSION: No renal or ureteral stone Electronically Signed: Theo Acevedo MD at 15:22 EST Tel , Service support ,
== END ==
PROVIDERS: PCP Family Medicine Geriatric Medicine; Visit Provider Urology
DX: R31.0 Gross hematuria (principal)
CPT/HCPCS: 74176

== ENCOUNTER → 2020-05-14 11:26 | Outpatient (CLI) | payer MEDICARE, OTHER, SELFPAY ==
[2020-01-12 15:16] VITALS: BMI 30.4
[2020-05-14 12:16] LABS: Absolute Lymphocyte Count 1.05 X10^3/uL (0.83-4.51); Absolute Neutrophil Count 5.1 X10^3/uL (2.0-7.7); Basophil# 0.05 X10^3/uL; Basophil% 0.7 % (0-1); Eosinophil# 0.08 X10^3/uL; Eosinophils% 1.1 % (0-5); Hematocrit 42.4 % (40-54); Hemoglobin 13.5 g/dL (13.0-16.5); Lymphocyte # 1.05 X10^3/ul (4.0); Lymphocyte % 14.7 % (19-41); Mean Corp Hgb Conc 31.8 g/dL (32-36); Mean Corpuscular Hgb 27.9 pg (27.0-32.0); Mean Corpuscular Volume 87.6 fL (80-94); Mean Platelet Vol. 9.5 fl (6.2-12.0); Monocyte% 11.2 % (0-10); NRBC Flagged by Analyzer 0 % (0-5); Neutrophil # 5.08 X10^3/uL (2.7-7.7); Neutrophil % 71.2 % (47-70); Platelet Count 225 K/mm3 (150-450); RBC Distribution Width CV 13.9 % (11.6-14.6); RBC Distribution Width SD 44.3 fl (35.1-43.9); Red Blood Count 4.84 M/mm3 (4.6-6.2); White Blood Count 7.1 K/mm3 (4.4-11.0)
[2020-05-14 12:33] LABS: Vitamin D,25 Hydroxy 58.5 ng/mL
[2020-05-14 12:54] LABS: ALB/GLOB Ratio 0.9 RATIO (0.9-2.4); AST(SGOT) 25 U/L (15-37); Alanine Aminotransfer ALT/SGPT 15 U/L (16-61); Albumin, Serum 3.4 g/dL (3.2-5.0); Alkaline Phosphatase 98 U/L (45-117); Anion Gap 8 (5-15); BUN 24 mg/dL (7-18); BUN/Creat Ratio 19.8 RATIO (10-20); Chloride 102 mmol/L (98-107); Cholesterol 105 mg/dL (200); Creatinine, Serum 1.21 mg/dL (0.70-1.30); EST Glomerular Filtration Rate 62 mL/min (>60); Est Glom Filt Rate - Afr Amer 75 mL/min (>60); Globulin 3.7 g/dL (2.2-4.2); Glucose 202 mg/dL (74-106); High Density Lipoprotein 45 mg/dL; Potassium 4.2 mmol/L (3.5-5.1); Protein, Total 7.1 g/dL (6.4-8.2); Sodium Level 137 mmol/L (136-145); Thyroid Stim Hormone (TSH) 1.29 uIU/mL (0.358-3.74); Triglycerides 217 mg/dL; Very Low Density Lipoprotein 43 mg/dL (5-40)
[2020-05-14 13:16] LABS: Hemoglobin A1c 9.1 % (3.8-5.6)
== END ==
PROVIDERS: PCP Family Medicine Geriatric Medicine; Visit Provider Family Medicine Geriatric Medicine
DX: E11.9 Type 2 diabetes mellitus without complications (principal); E55.9 Vitamin D deficiency, unspecified; E78.5 Hyperlipidemia, unspecified; I10 Essential (primary) hypertension
CPT/HCPCS: 36415; 80053; 80061; 82306; 83036; 84443; 85025

== ENCOUNTER → 2020-05-16 | Outpatient (CLI) | payer MEDICARE, OTHER, SELFPAY ==
[2020-01-12 15:16] VITALS: BMI 30.4
== END | disposition home or self-care (01) ==
LOC: LABSPEC 14:57
PROVIDERS: PCP Family Medicine Geriatric Medicine; Visit Provider Family Medicine Geriatric Medicine
DX: N39.0 Urinary tract infection, site not specified (principal)
CPT/HCPCS: 87086; 87088; 87186

== ENCOUNTER → 2020-08-12 14:34 | Outpatient (CLI) | payer MEDICARE, OTHER, SELFPAY ==
[2020-01-12 15:16] VITALS: BMI 30.4
[2020-08-12 17:16] LABS: Absolute Lymphocyte Count 1.16 X10^3/uL (0.83-4.51); Absolute Neutrophil Count 3.6 X10^3/uL (2.0-7.7); Basophil# 0.03 X10^3/uL; Basophil% 0.5 % (0-1); Eosinophil# 0.06 X10^3/uL; Eosinophils% 1.1 % (0-5); Hematocrit 39.5 % (40-54); Hemoglobin 12.5 g/dL (13.0-16.5); Lymphocyte # 1.16 X10^3/ul (0.83-4.51); Lymphocyte % 21.2 % (19-41); Mean Corp Hgb Conc 31.6 g/dL (32-36); Mean Corpuscular Hgb 27.6 pg (27.0-32.0); Mean Corpuscular Volume 87.2 fL (80-94); Mean Platelet Vol. 9.9 fl (6.2-12.0); Monocyte# 0.63 X10^3/uL; Monocyte% 11.5 % (0-10); NRBC Flagged by Analyzer 0 % (0-5); Neutrophil # 3.55 X10^3/uL (2.7-7.7); Neutrophil % 64.8 % (47-70); Platelet Count 176 K/mm3 (150-450); RBC Distribution Width SD 44.9 fl (35.1-43.9); Red Blood Count 4.53 M/mm3 (4.6-6.2); White Blood Count 5.5 K/mm3 (4.4-11.0)
[2020-08-12 17:30] LABS: AST(SGOT) 18 U/L (15-37); Alanine Aminotransfer ALT/SGPT 20 U/L (16-61); Albumin, Serum 3.3 g/dL (3.2-5.0); Alkaline Phosphatase 77 U/L (45-117); Anion Gap 9 (5-15); BUN 23 mg/dL (7-18); BUN/Creat Ratio 19.3 RATIO (10-20); Calcium,Total 8.8 mg/dL (8.5-10.1); Chloride 104 mmol/L (98-107); Cholesterol 110 mg/dL (200); Creatinine, Serum 1.19 mg/dL (0.70-1.30); EST Glomerular Filtration Rate 63 mL/min (>60); Est Glom Filt Rate - Afr Amer 76 mL/min (>60); Globulin 3.2 g/dL (2.2-4.2); Glucose 149 mg/dL (74-106); High Density Lipoprotein 46 mg/dL; Potassium 4.1 mmol/L (3.5-5.1); Protein, Total 6.5 g/dL (6.4-8.2); Sodium Level 139 mmol/L (136-145); Thyroid Stim Hormone (TSH) 1.89 uIU/mL (0.358-3.74); Triglycerides 178 mg/dL; Very Low Density Lipoprotein 36 mg/dL (5-40)
[2020-08-12 17:31] LABS: Hemoglobin A1c 8.4 % (3.8-5.6)
[2020-08-12 17:37] LABS: Vitamin D,25 Hydroxy 53.1 ng/mL
== END ==
PROVIDERS: PCP Family Medicine Geriatric Medicine; Visit Provider Family Medicine Geriatric Medicine
DX: E11.9 Type 2 diabetes mellitus without complications (principal); I10 Essential (primary) hypertension; E78.5 Hyperlipidemia, unspecified; E55.9 Vitamin D deficiency, unspecified; F52.8 Other sexual dysfunction not due to a substance or known physiological condition
CPT/HCPCS: 36415; 80053; 80061; 82306; 83036; 84403; 84443; 85025

== ENCOUNTER → 2020-09-30 16:00 | Outpatient (CLI) | payer MEDICARE, OTHER, SELFPAY ==
[2020-01-12 15:16] VITALS: BMI 30.4
[2020-09-30 19:10] LABS: PSA,Total- Diagnostic 0.01 ng/mL (0.0-4.0)
== END ==
PROVIDERS: PCP Family Medicine Geriatric Medicine; Visit Provider Urology
DX: C61 Malignant neoplasm of prostate (principal)
CPT/HCPCS: 36415; 84153

== ENCOUNTER → 2020-10-11 13:28 | Outpatient (CLI) | payer MEDICARE, OTHER, SELFPAY ==
--- NOTE | 2020-10-11 13:30 | VDLE_ITS ---
Reason For Study: EDEMA RIGHT LEFT GSV is normal. GSV is normal. CFV is compressible, spontaneous, phasic, CFV is compressible, spontaneous, phasic, competent and demonstrates normal competent, and demonstrates normal augmentation. augmentation. FV is compressible, spontaneous, phasic, FV is compressible, spontaneous, phasic, competent and demonstrates normal competent and demonstrates normal augmentation. augmentation. POP V is compressible, spontaneous, phasic, POP V is compressible, spontaneous, phasic, competent and demonstrates normal competent and demonstrates normal augmentation. augmentation. T/P Trunk is compressible. T/P Trunk is compressible. PTV is compressible. PTV is compressible. RT PerV is compressible. LT PerV is compressible. Procedure Exam performed in department. This is a venous duplex using B-mode, color flow and spectral Doppler. A preliminary report was called and/or faxed to DR MOON. VL/Venous Duplex US - Andrew Extrem Interpretation Summary No evidence for acute deep venous thrombosis bilateral lower extremities with p atent and compressible bilateral great saphenous veins. Ordering Physician: Fredis Moon Referring Physician: Fredis Moon Chi Performed By: Clarisse Delvalle, JUSTINECS, RVT
== END ==
PROVIDERS: PCP Family Medicine Geriatric Medicine; Referring Provider Family Medicine Geriatric Medicine; Visit Provider Family Medicine Geriatric Medicine
DX: R60.0 Localized edema (principal)
CPT/HCPCS: 93970

== ENCOUNTER → 2020-11-11 17:11 | Outpatient (CLI) | payer MEDICARE, OTHER, SELFPAY ==
[2020-11-11 17:39] LABS: Absolute Lymphocyte Count 1.38 X10^3/uL (0.83-4.51); Absolute Neutrophil Count 5.4 X10^3/uL (2.0-7.7); Basophil# 0.05 X10^3/uL; Basophil% 0.6 % (0-1); Eosinophil# 0.08 X10^3/uL; Hematocrit 47.4 % (40-54); Hemoglobin 14.5 g/dL (13.0-16.5); Lymphocyte # 1.38 X10^3/ul (0.83-4.51); Lymphocyte % 17.6 % (19-41); Mean Corp Hgb Conc 30.6 g/dL (32-36); Mean Corpuscular Volume 81.7 fL (80-94); Mean Platelet Vol. 9.7 fl (6.2-12.0); Monocyte% 11.5 % (0-10); NRBC Flagged by Analyzer 0 % (0-5); Neutrophil # 5.36 X10^3/uL (2.7-7.7); Neutrophil % 68.5 % (47-70); Platelet Count 246 K/mm3 (150-450); RBC Distribution Width CV 15.4 % (11.6-14.6); RBC Distribution Width SD 44.7 fl (35.1-43.9); White Blood Count 7.8 K/mm3 (4.4-11.0)
[2020-11-11 18:01] LABS: Vitamin D,25 Hydroxy 66.7 ng/mL
[2020-11-11 18:10] LABS: Hemoglobin A1c 7.2 % (3.8-5.6)
[2020-11-11 18:11] LABS: ALB/GLOB Ratio 0.9 RATIO (0.9-2.4); AST(SGOT) 12 U/L (15-37); Alanine Aminotransfer ALT/SGPT 16 U/L (16-61); Albumin, Serum 3.4 g/dL (3.2-5.0); Alkaline Phosphatase 86 U/L (45-117); Anion Gap 11 (5-15); BUN 26 mg/dL (7-18); Chloride 101 mmol/L (98-107); Cholesterol 93 mg/dL (200); Creatinine, Serum 1.53 mg/dL (0.70-1.30); EST Glomerular Filtration Rate 47 mL/min (>60); Est Glom Filt Rate - Afr Amer 57 mL/min (>60); Globulin 3.9 g/dL (2.2-4.2); Glucose 209 mg/dL (74-106); High Density Lipoprotein 33 mg/dL; Potassium 4.1 mmol/L (3.5-5.1); Protein, Total 7.3 g/dL (6.4-8.2); Sodium Level 138 mmol/L (136-145); Triglycerides 261 mg/dL; Very Low Density Lipoprotein 52 mg/dL (5-40)
== END ==
PROVIDERS: PCP Family Medicine Geriatric Medicine; Visit Provider Family Medicine Geriatric Medicine
DX: I10 Essential (primary) hypertension (principal); E11.9 Type 2 diabetes mellitus without complications; E55.9 Vitamin D deficiency, unspecified; F52.8 Other sexual dysfunction not due to a substance or known physiological condition
CPT/HCPCS: 36415; 80053; 80061; 82306; 83036; 84403; 84443; 85025

== ENCOUNTER → 2020-11-20 16:17 | Outpatient (CLI) | payer MEDICARE, OTHER, SELFPAY ==
[2020-11-20 17:18] LABS: Anion Gap 7 (5-15); BUN 23 mg/dL (7-18); BUN/Creat Ratio 17.4 RATIO (10-20); Calcium,Total 8.6 mg/dL (8.5-10.1); Chloride 105 mmol/L (98-107); Creatinine, Serum 1.32 mg/dL (0.70-1.30); EST Glomerular Filtration Rate 56 mL/min (>60); Est Glom Filt Rate - Afr Amer 67 mL/min (>60); Glucose 147 mg/dL (74-106); Potassium 4.6 mmol/L (3.5-5.1); Sodium Level 140 mmol/L (136-145)
== END ==
PROVIDERS: PCP Family Medicine Geriatric Medicine; Visit Provider Family Medicine Geriatric Medicine
DX: E87.6 Hypokalemia (principal)
CPT/HCPCS: 36415; 80048

== ENCOUNTER → 2020-12-17 12:25 | Outpatient (CLI) | payer MEDICARE, OTHER, SELFPAY ==
--- NOTE | 2020-12-17 12:29 | RAD_ITS ---
STUDY: X-RAY - LEFT KNEE REASON FOR EXAM: Left knee pain, left knee injury on Wednesday. TECHNIQUE: 4 view(s) of the knee. COMPARISON: None. FINDINGS: Normal visualized distal femur. Normal visualized proximal tibia and fibula. Normal proximal tibiofibular articulation. Normal medial femorotibial compartment. Normal lateral femorotibial compartment. Normal patellofemoral articulation. There is patellar enthesopathy. There is vascular calcification. RAD/Knee 4 or More Views IMPRESSION: Patellar enthesopathy. No demonstrated fracture. Electronically Signed: Jose Lund MD at 14:04 EDT Tel , Service support ,
== END ==
PROVIDERS: PCP Family Medicine Geriatric Medicine; Referring Provider Family Medicine Geriatric Medicine; Visit Provider Family Medicine Geriatric Medicine
DX: M25.562 Pain in left knee (principal)
CPT/HCPCS: 73564

== ENCOUNTER 2021-01-07 09:00 | Outpatient (RCR) | payer MEDICARE, OTHER, SELFPAY ==
--- NOTE | 2020-10-22 14:20 | HP.PTEVAL_ITS ---
Patient's Visit Information Joaquin CAMERON is a 80 year old M referred to Physical Therapy by Dr. Fredis Moon MD with a diagnosis of gait instability. Date of Evaluation: 10/22/20 Physical Therapist: THERESA Sneed - Visit Plan Frequency: 2x /Week Duration: 6 Weeks Plan: 2X/ week for 4-6 weeks for core stability, ankle strength, LE strength, balance, gait training to work toward goals with HEP. HEP: SLR, LAQ, AP - Subjective Pt reports that he is getting older and more difficult to walk and manipulate it all. He walks better without a cane but when he is standing for any length of time he wobbles. He is weak overall. His legs are especially weak. He feels that the weakness is progressing. He feels like he is trying to balance on a rail all the time when he walks. His legs when he walks can make him feel like he has just ridden a bike for 10 min. He has an UBE/leg exercise machine. He has not been able to get into a routine with it. His numbness in his fingers are getting worse. 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 He is Diabetic. His sisters and brother have neuropathy even though they do not have diabetes. Stairs: He goes 2 feet to a stair and always uses a railing. Sit to stand: He needs his arms to get up out of a chair to be steady. He struggles with unsteadiness when the lights are out. - Pain toe pain Pain Intensity (Out of 10): 2 - Objective Gait: Pt has B AFO's, He walks with B foot slap with a cane with wider MARIBEL and shorter stride. Sit to stand: pt is able to stand without UE support but he has a hard time balancing once he stands without UE support. LE MMT: B DF 3-/5, PF 3+/5, R hip flex 4-/5 and L hip flex 4-/5, B knee flex 4-/5, B knee ext 4-/5, B hip abd 4//5. pt had increase pain with bridging in the front and back of legs. Pt has decreased sensation below the knees B. Able 1 X 10 B SLR with decrease control on bringing leg back to the table. Pt has good HS length. FGA: 3. Pt has a weak core as when MMT of B hip flexion in sitting was tested and pt had to put out hand to catch balance. - Balance/Special Test Scores Functional Gait Assessment Score: 3 % Disability: 90.0000 - Goals Goal 1:: I HEP for balance, core and LE strengthening Goal Time Frame: 4-6 Weeks Goal 2:: Increase FGA by 5 points to decrease fall risk (score was 3 at eval) Goal Time Frame: 4-6 Weeks Goal 3:: Increase core strength to be able to resist B hip flexion MMT and not have to use UE support for trunk support Goal Time Frame: 4-6 Weeks Goal 4:: Be able to sit to stand without holding onto an object with good balance and control 5/5 attempts Goal Time Frame: 4-6 Weeks Goal 5:: Increase LE strength by 1/2 muscle grade (at time of the eval: LE MMT: B DF 3-/5, PF 3+/5, R hip flex 4-/5 and L hip flex 4-/5, B knee flex 4-/5, B knee ext 4-/5, B hip abd 4//5. pt had increase pain with bridging in the front and back of legs). Goal Time Frame: 4-6 Weeks - Rehabilitation Potential Rehabilitation Potential: Good - Anticipated Interventions Patient/Client Instruction: Educate patient on: Condition, Plan of Care For the Purpose of:: To decrease pain, To increase ROM, To improve muscle performance and motor function, To improve ability to perform ADL's, To increase tolerance to activity/condition/position, To improve performance and independence with ADL's, To decrease level of supervision to perform tasks, To improve ability of physical actions for home/community/work/leisure, To improve gait and locomotor functions, To increase flexibility/ROM, To improve balance, To improve safety with gait Therapeutic Exercise to Include: Strength training, Balance training, Flexibilty training, Gait and locomotor training, Neuromotor development, via Neurocom Balance Mas, Passive ROM, Active ROM, Dynamic Lumbar Stabilization For the Purpose of:: To decrease pain, To increase ROM, To improve nutrient del robby to tissue, To improve muscle performance and motor function, To improve ability to perform ADL's, To increase tolerance to activity/condition/position, To improve performance and independence with ADL's, To decrease level of supervision to perform tasks, To improve ability of physical actions for home/community/work/leisure, To improve gait and locomotor functions, To improve health of tissue, To increase flexibility/ROM, To improve balance, To improve safety with gait Functional Training to Include: Gait training For the Purpose of:: To improve safety with gait Manual Therapy Techniques to Include: Passive ROM For the Purpose of:: To increase ROM Thank you for the opportunity to evaluate your patient. For Medicare and Medicare HMO plans, please review the plan of care and approve it. It will need to be FAXED BACK to us at [phone] for Medicare purposes. For Medicare only, by signing this I certify the plan of care. Please let me know if there are questions or concerns regarding this plan of care. Physician Signature: Date:
--- NOTE | 2020-12-03 09:35 | HP.PTREVAL_ITS ---
Dr. Fredis Moon MD, It has been my pleasure to treat Joaquin CAMERON over the last 10 visits for gait instability. Please see the progress note below for an update on the physical therapy plan of care! Subjective: He feels like he is going backwards. He seems to be having more trouble balancing. He is not sure how much is related to the swelling. He is more SOB and low energy. He mowed the lawn yesterday and he was not able to finish it cause his legs felt like rubber and he felt like he just ran 5 miles. He did not ask the Dr about his knee. They are not sure what is causing the swelling at this point. His swelling will go down at night but starts up again during the day. Objective/Function: FGA: 5 ( not much improvement here). hip flex MMT: 4/5 and did not have to use arms to catch self. Sit to stand: 5/5 with light touch to change center of gravity. LE MMT: B DF 3-/5, PF 3+/5, R hip flex 4/5 and L hip flex 4/5, B knee flex 4/5, B knee ext 4-/5, B hip abd 4/5. Plan Plan: Pt to bring in rollator to learn an endurance walking program. Core stability and hip strength. 2X/ week for additional 3 weeks for core stability, ankle strength, LE strength, balance, gait training to work toward goals with HEP. HEP: SLR, LAQ, AP Balance/Gait/Functional tests - Balance/Special Test Scores Functional Gait Assessment Score: 5 % Disability: 83.3400 Lower Extremity Functional Score: 26 Goals Goal 1:: I HEP for balance, core and LE strengthening Goal Time Frame: 4-6 Weeks Goal 2:: Increase FGA by 5 points to decrease fall risk (score was 3 at eval) Goal Time Frame: 4-6 Weeks Goal 3:: Increase core strength to be able to resist B hip flexion MMT and not have to use UE support for trunk support Goal Time Frame: 4-6 Weeks Goal Progress: Goal Met Goal 4:: Be able to sit to stand without holding onto an object with good balance and control 5/5 attempts Goal Time Frame: 4-6 Weeks Goal Progress: Progressing Goal 5:: Increase LE strength by 1/2 muscle grade (at time of the eval: LE MMT: B DF 3-/5, PF 3+/5, R hip flex 4-/5 and L hip flex 4-/5, B knee flex 4-/5, B knee ext 4-/5, B hip abd 4//5. pt had increase pain with bridging in the front and back of legs). Goal Time Frame: 4-6 Weeks Goal Progress: Progressing Anticipated Interventions Patient/Client Instruction: Educate patient on: Condition, Plan of Care For the Purpose of:: To decrease pain, To increase ROM, To improve muscle performance and motor function, To improve ability to perform ADL's, To increase tolerance to activity/condition/position, To improve performance and ind ependence with ADL's, To decrease level of supervision to perform tasks, To improve ability of physical actions for home/community/work/leisure, To improve gait and locomotor functions, To increase flexibility/ROM, To improve balance, To improve safety with gait Therapeutic Exercise to Include: Strength training, Balance training, Flexibilty training, Gait and locomotor training, Neuromotor development, via Neurocom Balance Mas, Passive ROM, Active ROM, Dynamic Lumbar Stabilization For the Purpose of:: To decrease pain, To increase ROM, To improve nutrient delivery to tissue, To improve muscle performance and motor function, To improve ability to perform ADL's, To increase tolerance to activity/condition/position, To improve performance and independence with ADL's, To decrease level of supervision to perform tasks, To improve ability of physical actions for home/community/work/leisure, To improve gait and locomotor functions, To improve health of tissue, To increase flexibility/ROM, To improve balance, To improve safety with gait Functional Training to Include: Gait training For the Purpose of:: To improve safety with gait Manual Therapy Techniques to Include: Passive ROM For the Purpose of:: To increase ROM Please do not hesitate to contact me at [phone] by phone or if you have questions or concerns regarding this new plan of care! Sincerely, Meka Tristan, MPT
--- NOTE | 2021-01-07 10:00 | HP.PTDCSUM ---
It has been my pleasure to treat Joaquin CAMERON referred by Dr. Fredis Moon MD, with the diagnosis of gait instability for a total of 18 visit(s). Discharge Date: 01/07/21 Please see the following information for a summary of their discharge status. Subjective: Pt has seen some progress but the hardest exercises is the standing up part. He is now stronger to get up from the floor and can do it much better. He does feel he is stronger. They feel that he is stronger. toe pain Pain Intensity (Out of 10): 0 R knee Pain Intensity (Out of 10): 1 L knee pain Pain Intensity (Out of 10): 1 L thumb Pain Intensity (Out of 10): 3 % Improvement: 20 Objective/Function: FGA: 6. Pt is able to sit unsupported and withstand 4/5 hip flexion MMT B without losing his balance. Stairs; Pt is able to go up and down the steps recip with one hand rail with smooth motion. Pt is unsteady without some sort of external support such as a cane, wall, CGA/min A etc. Feel at this time pt NEEDS to continue with hip strengthening and stretching of the quads/hip flexors at home to maintain strength to be able to transfer and walk. Goal 1:: I HEP for balance, core and LE strengthening Goal Progress: Goal Met Goal 2:: Increase FGA by 5 points to decrease fall risk (score was 3 at eval) Goal Progress: Not Progressing Goal 3:: Increase core strength to be able to resist B hip flexion MMT and not have to use UE support for trunk support Goal Progress: Goal Met Goal 4:: Be able to sit to stand without holding onto an object with good balance and control 5/5 attempts Goal Progress: Progressing Goal 5:: Increase LE strength by 1/2 muscle grade (at time of the eval: LE MMT: B DF 3-/5, PF 3+/5, R hip flex 4-/5 and L hip flex 4-/5, B knee flex 4-/5, B knee ext 4-/5, B hip abd 4//5. pt had increase pain with bridging in the front and back of legs). Goal Progress: Progressing Plan: DC PT to HEP Discharge Comments: DC PT If there are questions or concerns regarding this patient's physical therapy, please feel free to call me at [phone]. Thank you for the referral of this patient. Sincerely, Meka Tristan, MPT Balance/Gait/Functional tests - Balance/Special Test Scores Functional Gait Assessment Score: 6 % Disability: 80.0000 Lower Extremity Functional Score: 31
== END 2021-01-07 19:00 | disposition home or self-care (01) ==
LOC: PT 09:00
PROVIDERS: PCP Family Medicine Geriatric Medicine; Referring Provider Family Medicine Geriatric Medicine; Visit Provider Family Medicine Geriatric Medicine
DX: R26.9 Unspecified abnormalities of gait and mobility (principal)
CPT/HCPCS: 97110; 97162; 97530

== ENCOUNTER → 2021-01-10 09:52 | Outpatient (CLI) | payer MEDICARE, OTHER, SELFPAY ==
--- NOTE | 2021-01-10 09:54 | CDU_ITS ---
Reason For Study: Carotid artery disease Rt. Velocities/BP Lt. Velocities/BP Prox CCA 115/15 cm/sec. Prox CCA 131/18 cm/sec. Mid CCA 84/13 cm/sec. Mid CCA 105/19 cm/sec. Dist CCA 77/15 cm/sec. Dist CCA 79/17 cm/sec. Prox ICA 100/16 cm/sec. Prox ICA 75/18 cm/sec. Mid ICA 68/17 cm/sec. Mid ICA 62/16 cm/sec. Dist ICA 69/17 cm/sec. Dist ICA 63/19 cm/sec. Rt. ICA/CCA = 1.2. Lt. ICA/CCA = 0.7. Prox ECA 124/7 cm/sec. Prox ECA 109/10 cm/sec. Rt. Vert. 33/8 cm/sec. Lt. Vert. 42/13 cm/sec. Right Extracranial There is heterogeneous, smooth atherosclerotic plaque noted in the right common carotid artery. There is heterogeneous, irregular atherosclerotic plaque noted in the right internal carotid artery. There is heterogeneous, irregular atherosclerotic plaque noted in the right external carotid artery. Antegrade flow is noted in the right vertebral artery. Left Extracranial There is homogeneous, smooth atherosclerotic plaque noted in the left common carotid artery. There is heterogeneous, irregular atherosclerotic plaque noted in the left internal carotid artery. There is heterogeneous, irregular atherosclerotic plaque noted in the left external carotid artery. Antegrade flow is noted in the left vertebral artery. Procedure Carotid Duplex 86602. This is a Carotid Duplex examination using B-mode, color flow and specral Doppler. Exam performed in department. VL/Carotid Duplex Ultrasound Interpretation Summary Irregular calcific plaque right proximal internal carotid artery although with less than 50% stenosis based upon velocity. Less than 50% stenosis right external carotid artery Minimal irregular calcific plaque proximal left internal carotid artery with le ss than 50% stenosis Less than 50% stenosis left external carotid artery No velocity elevation identified within the left distal common carotid artery o n this exam Patent and antegrade vertebral arteries bilaterally No evidence of disease progression since his previous carotid duplex exam of Ordering Physician: Josias Turk Referring Physician: Fredis Moon Chi Performed By: Catalina Regalado, MARIELA, RVT
== END ==
PROVIDERS: PCP Family Medicine Geriatric Medicine; Referring Provider Internal Medicine Cardiovascular Disease; Visit Provider Internal Medicine Cardiovascular Disease
DX: I65.23 Occlusion and stenosis of bilateral carotid arteries (principal); R55 Syncope and collapse
CPT/HCPCS: 93880

== ENCOUNTER → 2021-01-20 20:10 | Outpatient (CLI) | payer MEDICARE, OTHER, SELFPAY | PROVIDERS: PCP Family Medicine Geriatric Medicine; Visit Provider Internal Medicine Pulmonary Disease | DX: G47.33 Obstructive sleep apnea (adult) (pediatric) (principal) | CPT/HCPCS: 95811 ==

== ENCOUNTER → 2021-02-11 11:12 | Outpatient (CLI) | payer MEDICARE, OTHER, SELFPAY ==
[2021-02-11 12:17] LABS: Absolute Lymphocyte Count 1.21 X10^3/uL (0.83-4.51); Absolute Neutrophil Count 3.8 X10^3/uL (2.0-7.7); Basophil# 0.06 X10^3/uL; Eosinophil# 0.09 X10^3/uL; Eosinophils% 1.5 % (0-5); Hematocrit 43.6 % (40-54); Hemoglobin 14.2 g/dL (13.0-16.5); Lymphocyte # 1.21 X10^3/ul (0.83-4.51); Lymphocyte % 20.6 % (19-41); Mean Corp Hgb Conc 32.6 g/dL (32-36); Mean Corpuscular Hgb 26.1 pg (27.0-32.0); Mean Platelet Vol. 8.8 fl (6.2-12.0); Monocyte# 0.68 X10^3/uL; Monocyte% 11.6 % (0-10); NRBC Flagged by Analyzer 0 % (0-5); Neutrophil # 3.78 X10^3/uL (2.7-7.7); Neutrophil % 64.4 % (47-70); POSITIVE MORPHOLOGY YES; Platelet Count 185 K/mm3 (150-450); RBC Distribution Width CV 20.7 % (11.6-14.6); RBC Distribution Width SD 58.9 fl (35.1-43.9); Red Blood Count 5.45 M/mm3 (4.6-6.2); White Blood Count 5.9 K/mm3 (4.4-11.0)
[2021-02-11 12:18] LABS: Differential Indicated SCAN CRITERIA MET
[2021-02-11 12:39] LABS: ALB/GLOB Ratio 0.9 RATIO (0.9-2.4); AST(SGOT) 13 U/L (15-37); Alanine Aminotransfer ALT/SGPT 18 U/L (16-61); Albumin, Serum 3.5 g/dL (3.2-5.0); Alkaline Phosphatase 83 U/L (45-117); Anion Gap 8 (5-15); BUN 23 mg/dL (7-18); BUN/Creat Ratio 21.1 RATIO (10-20); Calcium,Total 9.4 mg/dL (8.5-10.1); Chloride 101 mmol/L (98-107); Cholesterol 107 mg/dL (200); Creatinine, Serum 1.09 mg/dL (0.70-1.30); EST Glomerular Filtration Rate 69 mL/min (>60); Est Glom Filt Rate - Afr Amer 84 mL/min (>60); Globulin 3.7 g/dL (2.2-4.2); Glucose 109 mg/dL (74-106); High Density Lipoprotein 49 mg/dL; Potassium 4.5 mmol/L (3.5-5.1); Protein, Total 7.2 g/dL (6.4-8.2); Sodium Level 140 mmol/L (136-145); Triglycerides 168 mg/dL; Very Low Density Lipoprotein 34 mg/dL (5-40)
[2021-02-11 12:43] LABS: Anisocytosis 1+; Differential Comment SCANNED
[2021-02-11 12:50] LABS: Vitamin D,25 Hydroxy 49.2 ng/mL
== END ==
PROVIDERS: PCP Family Medicine Geriatric Medicine; Visit Provider Family Medicine Geriatric Medicine
DX: I10 Essential (primary) hypertension (principal); E11.9 Type 2 diabetes mellitus without complications; E55.9 Vitamin D deficiency, unspecified; E78.5 Hyperlipidemia, unspecified; F52.8 Other sexual dysfunction not due to a substance or known physiological condition
CPT/HCPCS: 36415; 80053; 80061; 82306; 83036; 84403; 84443; 85025

== ENCOUNTER 2021-04-04 14:30 | Outpatient (CLI) | payer MEDICARE, OTHER, SELFPAY ==
[2021-04-04 16:24] LABS: PSA,Total- Diagnostic < 0.01 ng/mL (0.0-4.0)
== END 2021-04-04 23:59 | disposition home or self-care (01) ==
PROVIDERS: PCP Family Medicine Geriatric Medicine; Visit Provider Family Medicine Geriatric Medicine
DX: C61 Malignant neoplasm of prostate (principal); E29.1 Testicular hypofunction
CPT/HCPCS: 36415; 84153; 84403

== ENCOUNTER 2021-05-12 16:08 | Outpatient (CLI) | payer MEDICARE, OTHER, SELFPAY ==
[2021-05-12 16:43] LABS: Absolute Lymphocyte Count 1.26 X10^3/uL (0.83-4.51); Basophil# 0.04 X10^3/uL; Basophil% 0.5 % (0-1); Eosinophil# 0.08 X10^3/uL; Eosinophils% 1.1 % (0-5); Hematocrit 40.4 % (40-54); Hemoglobin 13.3 g/dL (13.0-16.5); Lymphocyte # 1.26 X10^3/ul (0.83-4.51); Lymphocyte % 17.2 % (19-41); Mean Corp Hgb Conc 32.9 g/dL (32-36); Mean Corpuscular Hgb 28.9 pg (27.0-32.0); Mean Corpuscular Volume 87.6 fL (80-94); Mean Platelet Vol. 9.4 fl (6.2-12.0); Monocyte# 0.91 X10^3/uL; Monocyte% 12.4 % (0-10); NRBC Flagged by Analyzer 0 % (0-5); Neutrophil # 4.95 X10^3/uL (2.7-7.7); Neutrophil % 67.8 % (47-70); Platelet Count 213 K/mm3 (150-450); RBC Distribution Width CV 13.8 % (11.6-14.6); RBC Distribution Width SD 43.7 fl (35.1-43.9); Red Blood Count 4.61 M/mm3 (4.6-6.2); White Blood Count 7.3 K/mm3 (4.4-11.0)
[2021-05-12 17:06] LABS: Hemoglobin A1c 7.4 % (3.8-5.6)
[2021-05-12 17:16] LABS: Vitamin D,25 Hydroxy 41.9 ng/mL
[2021-05-12 17:25] LABS: ALB/GLOB Ratio 1.1 RATIO (0.9-2.4); AST(SGOT) 13 U/L (15-37); Alanine Aminotransfer ALT/SGPT 9 U/L (16-61); Albumin, Serum 3.5 g/dL (3.2-5.0); Alkaline Phosphatase 78 U/L (45-117); Anion Gap 6 (5-15); BUN 23 mg/dL (7-18); Calcium,Total 9.2 mg/dL (8.5-10.1); Chloride 106 mmol/L (98-107); Cholesterol 113 mg/dL (200); Creatinine, Serum 1.21 mg/dL (0.70-1.30); EST Glomerular Filtration Rate 62 mL/min (>60); Est Glom Filt Rate - Afr Amer 74 mL/min (>60); Globulin 3.3 g/dL (2.2-4.2); Glucose 139 mg/dL (74-106); High Density Lipoprotein 39 mg/dL; Potassium 4.5 mmol/L (3.5-5.1); Protein, Total 6.8 g/dL (6.4-8.2); Sodium Level 138 mmol/L (136-145); Thyroid Stim Hormone (TSH) 2.16 uIU/mL (0.358-3.74); Triglycerides 277 mg/dL; Very Low Density Lipoprotein 55 mg/dL (5-40)
== END 2021-05-12 23:59 | disposition home or self-care (01) ==
LOC: POLAB3 16:10
PROVIDERS: PCP Family Medicine Geriatric Medicine; Visit Provider Family Medicine Geriatric Medicine
DX: E11.9 Type 2 diabetes mellitus without complications (principal); E55.9 Vitamin D deficiency, unspecified; E78.5 Hyperlipidemia, unspecified; F52.8 Other sexual dysfunction not due to a substance or known physiological condition; I10 Essential (primary) hypertension
CPT/HCPCS: 36415; 80053; 80061; 82306; 83036; 84403; 84443; 85025

== ENCOUNTER 2021-05-14 12:29 | Outpatient (CLI) | payer MEDICARE, OTHER, SELFPAY ==
--- NOTE | 2021-05-14 13:33 | NEURO ---
NCS and/or EMG Patient Report Ordering Doctor: Arie Santana DATE OF SERVICE: 05/14/21 CHERYL Addison presents for electrodiagnostic testing of the lower limbs. He has complaints of numbness in the legs with dropfoot. Electrodiagnostic findings: Testing was attempted in the right lower limb, specifically on the right superficial peroneal nerve, right peroneal motor nerve, right tibial motor nerve and right H reflex. Due to severe bilateral lower extremity swelling, no responses were obtained. At this point, due to the limitations of the test secondary to significant swelling, no further testing was pursued. Electrodiagnostic impression:This is a limited study in the lower limbs. Due to significant lower extremity swelling, and assessment cannot accurately be made. If the swelling improves, consideration can be given for attempting the test again.
--- NOTE | 2021-05-14 14:49 | RAD_ITS ---
STUDY: LUMBOSACRAL SPINE X-RAY SERIES--2 VIEWS OF 1510 HOURS ON 05/14/2021 REASON FOR EXAM: 81-year-old with low back pain. TECHNIQUE: 2 view(s) of the lumbar spine were obtained. COMPARISON: None FINDINGS: No vertebral body fractures, subluxations or intervertebral disc space narrowing. Prominent anterior bridging osteophyte at the L1-2 level prominent near bridging anterior osteophytes at the L2-3, L3-4, and L4 -5 levels. Intact pedicles, processes and facets. Moderate calcification of the abdominal aorta without aneurysmal dilatation. RAD/Lumbar Spine 2 or 3 Views IMPRESSION: 1. No lumbar vertebral body fractures, subluxations or intervertebral disc space narrowing. 2. Prominent anterior bridging osteophyte at L1-2 level. 3. Prominent nearly bridging anterior osteophytes at the L2-3, L3/4, and L4 -5 levels. 4. Intact pedicles, processes and facets. 5. Moderate calcification of the abdominal aorta without aneurysmal dilatation. Electronically Signed: Javon Leon MD at 2:47 EDT ,
== END 2021-05-14 23:59 | disposition home or self-care (01) ==
PROVIDERS: PCP Family Medicine Geriatric Medicine; Referring Provider Family Medicine Geriatric Medicine; Visit Provider Family Medicine Geriatric Medicine
DX: M21.371 Foot drop, right foot (principal); E11.42 Type 2 diabetes mellitus with diabetic polyneuropathy; M21.372 Foot drop, left foot; Z79.84 Long term (current) use of oral hypoglycemic drugs
CPT/HCPCS: 72100; 95908

== ENCOUNTER → 2021-07-11 | Outpatient (CLI) | payer MEDICARE, OTHER, SELFPAY ==
[2021-07-11 08:11] LABS: Anion Gap 7 (5-15); BUN 25 mg/dL (7-18); BUN/Creat Ratio 22.7 RATIO (10-20); Calcium,Total 9.1 mg/dL (8.5-10.1); Chloride 106 mmol/L (98-107); EST Glomerular Filtration Rate 69 mL/min (>60); Est Glom Filt Rate - Afr Amer 83 mL/min (>60); Glucose 231 mg/dL (74-106); PSA,Total- Diagnostic < 0.01 ng/mL (0.0-4.0); Potassium 4.2 mmol/L (3.5-5.1); Sodium Level 140 mmol/L (136-145)
== END | disposition home or self-care (01) ==
LOC: LAB 07:18
PROVIDERS: PCP Family Medicine Geriatric Medicine; Referring Provider Urology; Visit Provider Urology
DX: C61 Malignant neoplasm of prostate (principal)
CPT/HCPCS: 36415; 80048; 84153; 84403

== ENCOUNTER → 2021-08-15 | Outpatient (CLI) | payer MEDICARE, OTHER, SELFPAY ==
[2021-08-15 13:35] LABS: Absolute Neutrophil Count 4.4 X10^3/uL (2.0-7.7); Basophil# 0.04 X10^3/uL; Basophil% 0.6 % (0-1); Eosinophils% 1.5 % (0-5); Hematocrit 43.1 % (40-54); Hemoglobin 14.1 g/dL (13.0-16.5); Lymphocyte % 18.4 % (19-41); Mean Corp Hgb Conc 32.7 g/dL (32-36); Mean Corpuscular Hgb 28.2 pg (27.0-32.0); Mean Corpuscular Volume 86.2 fL (80-94); Mean Platelet Vol. 9.5 fl (6.2-12.0); Monocyte# 0.75 X10^3/uL; Monocyte% 11.5 % (0-10); NRBC Flagged by Analyzer 0 % (0-5); Neutrophil # 4.35 X10^3/uL (2.7-7.7); Neutrophil % 66.8 % (47-70); Platelet Count 205 K/mm3 (150-450); RBC Distribution Width CV 14.3 % (11.6-14.6); RBC Distribution Width SD 44.4 fl (35.1-43.9); White Blood Count 6.5 K/mm3 (4.4-11.0)
[2021-08-15 14:00] LABS: Hemoglobin A1c 7.2 % (3.8-5.6)
[2021-08-15 14:05] LABS: Vitamin D,25 Hydroxy 45.4 ng/mL
[2021-08-15 14:10] LABS: AST(SGOT) 15 U/L (15-37); Alanine Aminotransfer ALT/SGPT 12 U/L (16-61); Albumin, Serum 3.7 g/dL (3.2-5.0); Alkaline Phosphatase 91 U/L (45-117); Anion Gap 9 (5-15); BUN 27 mg/dL (7-18); BUN/Creat Ratio 22.9 RATIO (10-20); Calcium,Total 9.4 mg/dL (8.5-10.1); Chloride 104 mmol/L (98-107); Cholesterol 105 mg/dL (200); Creatinine, Serum 1.18 mg/dL (0.70-1.30); EST Glomerular Filtration Rate 63 mL/min (>60); Est Glom Filt Rate - Afr Amer 77 mL/min (>60); Globulin 3.7 g/dL (2.2-4.2); Glucose 140 mg/dL (74-106); High Density Lipoprotein 44 mg/dL; Potassium 4.1 mmol/L (3.5-5.1); Protein, Total 7.4 g/dL (6.4-8.2); Sodium Level 139 mmol/L (136-145); Thyroid Stim Hormone (TSH) 2.38 uIU/mL (0.358-3.74); Triglycerides 178 mg/dL; Very Low Density Lipoprotein 36 mg/dL (5-40)
== END | disposition home or self-care (01) ==
LOC: POLAB3 08-21 12:29
PROVIDERS: PCP Family Medicine Geriatric Medicine; Visit Provider Family Medicine Geriatric Medicine
DX: E78.5 Hyperlipidemia, unspecified (principal); E11.9 Type 2 diabetes mellitus without complications; I10 Essential (primary) hypertension; E55.9 Vitamin D deficiency, unspecified; F52.8 Other sexual dysfunction not due to a substance or known physiological condition
CPT/HCPCS: 36415; 80053; 80061; 82306; 83036; 84403; 84443; 85025

== ENCOUNTER → 2021-09-03 | Outpatient (CLI) | payer MEDICARE, OTHER, SELFPAY | END | disposition home or self-care (01) | LOC: PSN 06:11 | PROVIDERS: PCP Family Medicine Geriatric Medicine; Visit Provider Podiatrist | DX: M79.2 Neuralgia and neuritis, unspecified (principal) ==

== ENCOUNTER → 2021-10-30 | Outpatient (CLI) | payer MEDICARE, OTHER, SELFPAY ==
[2021-10-30 12:21] LABS: Absolute Lymphocyte Count 1.16 X10^3/uL (0.83-4.51); Absolute Neutrophil Count 4.4 X10^3/uL (2.0-7.7); Basophil# 0.03 X10^3/uL; Basophil% 0.4 % (0-1); Eosinophil# 0.21 X10^3/uL; Eosinophils% 3.1 % (0-5); Hematocrit 42.2 % (40-54); Hemoglobin 13.7 g/dL (13.0-16.5); Lymphocyte # 1.16 X10^3/ul (0.83-4.51); Lymphocyte % 17.1 % (19-41); Mean Corp Hgb Conc 32.5 g/dL (32-36); Mean Corpuscular Hgb 28.4 pg (27.0-32.0); Mean Corpuscular Volume 87.6 fL (80-94); Mean Platelet Vol. 9.5 fl (6.2-12.0); Monocyte# 0.91 X10^3/uL; Monocyte% 13.4 % (0-10); NRBC Flagged by Analyzer 0 % (0-5); Neutrophil # 4.42 X10^3/uL (2.7-7.7); Platelet Count 199 K/mm3 (150-450); RBC Distribution Width CV 13.8 % (11.6-14.6); RBC Distribution Width SD 44.1 fl (35.1-43.9); Red Blood Count 4.82 M/mm3 (4.6-6.2); White Blood Count 6.8 K/mm3 (4.4-11.0)
[2021-10-30 12:52] LABS: ALB/GLOB Ratio 0.9 RATIO (0.9-2.4); AST(SGOT) 9 U/L (15-37); Alanine Aminotransfer ALT/SGPT 15 U/L (16-61); Albumin, Serum 3.5 g/dL (3.2-5.0); Alkaline Phosphatase 103 U/L (45-117); Anion Gap 10 (5-15); BUN 26 mg/dL (7-18); Calcium,Total 9.4 mg/dL (8.5-10.1); Chloride 105 mmol/L (98-107); Cholesterol 95 mg/dL (200); Creatinine, Serum 1.13 mg/dL (0.70-1.30); EST Glomerular Filtration Rate 66 mL/min (>60); Est Glom Filt Rate - Afr Amer 80 mL/min (>60); Globulin 3.9 g/dL (2.2-4.2); Glucose 133 mg/dL (74-106); High Density Lipoprotein 48 mg/dL; Potassium 4.6 mmol/L (3.5-5.1); Protein, Total 7.4 g/dL (6.4-8.2); Sodium Level 140 mmol/L (136-145); Thyroid Stim Hormone (TSH) 2.52 uIU/mL (0.358-3.74); Triglycerides 163 mg/dL; Very Low Density Lipoprotein 33 mg/dL (5-40)
== END | disposition home or self-care (01) ==
LOC: POLAB3 10:45
PROVIDERS: PCP Family Medicine Geriatric Medicine; Visit Provider Family Medicine Geriatric Medicine
DX: I10 Essential (primary) hypertension (principal); E11.9 Type 2 diabetes mellitus without complications; E78.5 Hyperlipidemia, unspecified; F52.8 Other sexual dysfunction not due to a substance or known physiological condition; E55.9 Vitamin D deficiency, unspecified
CPT/HCPCS: 36415; 80053; 80061; 82306; 83036; 84403; 84443; 85025

== ENCOUNTER → 2021-12-04 | Outpatient (CLI) | payer MEDICARE, OTHER, SELFPAY | END | disposition home or self-care (01) | LOC: POLAB3 13:54 | PROVIDERS: PCP Family Medicine Geriatric Medicine; Visit Provider Family Medicine Geriatric Medicine | DX: N39.0 Urinary tract infection, site not specified (principal) | CPT/HCPCS: 87086; 87088 ==

== ENCOUNTER → 2022-01-14 | Outpatient (CLI) | payer MEDICARE, OTHER, SELFPAY ==
[2022-01-14 17:07] LABS: PSA,Total- Diagnostic < 0.01 ng/mL (0.0-4.0)
== END | disposition home or self-care (01) ==
LOC: LAB 14:49
PROVIDERS: PCP Family Medicine Geriatric Medicine; Visit Provider Registered Nurse
DX: C61 Malignant neoplasm of prostate (principal)
CPT/HCPCS: 36415; 84153

== ENCOUNTER → 2022-01-29 | Outpatient (CLI) | payer MEDICARE, OTHER, SELFPAY ==
[2022-01-29 13:27] LABS: Absolute Lymphocyte Count 1.15 X10^3/uL (0.83-4.51); Absolute Neutrophil Count 3.5 X10^3/uL (2.0-7.7); Basophil# 0.05 X10^3/uL; Basophil% 0.9 % (0-1); Eosinophil# 0.09 X10^3/uL; Eosinophils% 1.6 % (0-5); Hematocrit 44.6 % (40-54); Hemoglobin 14.4 g/dL (13.0-16.5); Lymphocyte # 1.15 X10^3/ul (0.83-4.51); Lymphocyte % 20.8 % (19-41); Mean Corp Hgb Conc 32.3 g/dL (32-36); Mean Corpuscular Volume 86.8 fL (80-94); Mean Platelet Vol. 9.6 fl (6.2-12.0); Monocyte# 0.74 X10^3/uL; Monocyte% 13.4 % (0-10); NRBC Flagged by Analyzer 0 % (0-5); Neutrophil # 3.46 X10^3/uL (2.7-7.7); Neutrophil % 62.4 % (47-70); Platelet Count 189 K/mm3 (150-450); RBC Distribution Width CV 14.1 % (11.6-14.6); RBC Distribution Width SD 44.6 fl (35.1-43.9); Red Blood Count 5.14 M/mm3 (4.6-6.2); White Blood Count 5.5 K/mm3 (4.4-11.0)
[2022-01-29 13:42] LABS: Vitamin D,25 Hydroxy 58.1 ng/mL
[2022-01-29 13:51] LABS: AST(SGOT) 13 U/L (15-37); Alanine Aminotransfer ALT/SGPT 13 U/L (16-61); Albumin, Serum 3.7 g/dL (3.2-5.0); Alkaline Phosphatase 99 U/L (45-117); Anion Gap 5 (5-15); BUN 28 mg/dL (7-18); Calcium,Total 9.2 mg/dL (8.5-10.1); Chloride 103 mmol/L (98-107); Cholesterol 116 mg/dL (200); Creatinine, Serum 1.12 mg/dL (0.70-1.30); EST Glomerular Filtration Rate 67 mL/min (>60); Est Glom Filt Rate - Afr Amer 81 mL/min (>60); Globulin 3.7 g/dL (2.2-4.2); Glucose 126 mg/dL (74-106); High Density Lipoprotein 43 mg/dL; Potassium 4.1 mmol/L (3.5-5.1); Protein, Total 7.4 g/dL (6.4-8.2); Sodium Level 140 mmol/L (136-145); Thyroid Stim Hormone (TSH) 2.69 uIU/mL (0.358-3.74); Triglycerides 194 mg/dL; Very Low Density Lipoprotein 39 mg/dL (5-40)
[2022-01-29 14:10] LABS: Hemoglobin A1c 7.3 % (3.8-5.6)
== END | disposition home or self-care (01) ==
LOC: POLAB3 11:38
PROVIDERS: PCP Family Medicine Geriatric Medicine; Visit Provider Family Medicine Geriatric Medicine
DX: E78.5 Hyperlipidemia, unspecified (principal); E11.9 Type 2 diabetes mellitus without complications; I10 Essential (primary) hypertension; E55.9 Vitamin D deficiency, unspecified; F52.8 Other sexual dysfunction not due to a substance or known physiological condition
CPT/HCPCS: 36415; 80053; 80061; 82306; 83036; 84403; 84443; 85025

== ENCOUNTER → 2022-02-18 | Outpatient (CLI) | payer MEDICARE, OTHER, SELFPAY ==
--- NOTE | 2022-02-18 10:56 | NEURO_ITS ---
NCS and/or EMG Patient Report Ordering Doctor: Arie Santana DATE OF SERVICE: 02/18/22 Orion presents for electrodiagnostic testing of the lower limbs. He reports a history of bilateral foot drop, numbness and weakness. He is currently ambulating with a cane and wears braces on both legs. He reports frequent sw elling of the lower limbs. Electrodiagnostic findings: Peroneal motor response, measured at the tibialis anterior, showed normal distal latency with reduced amplitude bilaterally. There is reduced conduction velocity on the left side. Tibial motor response could not be obtained. Peroneal response could not be obtained when measured at the EDB. Absent sensory responses. Tibial response unobtainable bilaterally. On needle EMG, there is a decreased recruitment pattern bilaterally in the tibialis anterior. Peroneus longus and gastrocnemius bilaterally demonstrate motor units of increased amplitude and duration. Electrodiagnostic impression: This is an abnormal study in the lower limbs. 1. 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 Study is somewhat compromised due to the extensive swelling in the lower limbs. 2. No electrodiagnostic evidence is noted for lumbosacral radiculopathy.
== END | disposition home or self-care (01) ==
LOC: PSN 06:28
PROVIDERS: PCP Family Medicine Geriatric Medicine; Referring Provider Podiatrist; Visit Provider Podiatrist
DX: E11.42 Type 2 diabetes mellitus with diabetic polyneuropathy (principal)
CPT/HCPCS: 95886; 95912

== ENCOUNTER → 2022-04-30 | Outpatient (CLI) | payer MEDICARE, OTHER, SELFPAY ==
[2022-04-30 12:52] LABS: Absolute Lymphocyte Count 1.01 X10^3/uL (0.83-4.51); Basophil# 0.05 X10^3/uL; Basophil% 0.9 % (0-1); Eosinophil# 0.11 X10^3/uL; Eosinophils% 1.9 % (0-5); Hematocrit 45.2 % (40-54); Hemoglobin 14.4 g/dL (13.0-16.5); Lymphocyte # 1.01 X10^3/ul (0.83-4.51); Lymphocyte % 17.3 % (19-41); Mean Corp Hgb Conc 31.9 g/dL (32-36); Mean Corpuscular Hgb 27.7 pg (27.0-32.0); Mean Corpuscular Volume 87.1 fL (80-94); Mean Platelet Vol. 9.6 fl (6.2-12.0); Monocyte# 0.62 X10^3/uL; Monocyte% 10.6 % (0-10); NRBC Flagged by Analyzer 0 % (0-5); Neutrophil # 3.96 X10^3/uL (2.7-7.7); Neutrophil % 67.6 % (47-70); Platelet Count 213 K/mm3 (150-450); RBC Distribution Width CV 14.5 % (11.6-14.6); RBC Distribution Width SD 45.9 fl (35.1-43.9); Red Blood Count 5.19 M/mm3 (4.6-6.2); White Blood Count 5.9 K/mm3 (4.4-11.0)
[2022-04-30 13:05] LABS: Vitamin D,25 Hydroxy 47.6 ng/mL
[2022-04-30 13:08] LABS: Hemoglobin A1c 7.1 % (3.8-5.6)
[2022-04-30 13:19] LABS: AST(SGOT) 16 U/L (15-37); Alanine Aminotransfer ALT/SGPT 10 U/L (16-61); Albumin, Serum 3.8 g/dL (3.2-5.0); Alkaline Phosphatase 95 U/L (45-117); Anion Gap 10 (5-15); BUN 29 mg/dL (7-18); BUN/Creat Ratio 23.4 RATIO (10-20); Calcium,Total 9.6 mg/dL (8.5-10.1); Chloride 103 mmol/L (98-107); Cholesterol 213 mg/dL (200); Creatinine, Serum 1.24 mg/dL (0.70-1.30); EST Glomerular Filtration Rate 60 mL/min (>60); Est Glom Filt Rate - Afr Amer 72 mL/min (>60); Globulin 3.8 g/dL (2.2-4.2); Glucose 129 mg/dL (74-106); High Density Lipoprotein 46 mg/dL; PSA,Total - Annual Screen 0.02 ng/mL (0.00-4.00); Potassium 4.4 mmol/L (3.5-5.1); Protein, Total 7.6 g/dL (6.4-8.2); Sodium Level 138 mmol/L (136-145); Thyroid Stim Hormone (TSH) 1.87 uIU/mL (0.358-3.74); Triglycerides 352 mg/dL; Very Low Density Lipoprotein 70 mg/dL (5-40)
== END | disposition home or self-care (01) ==
LOC: POLAB3 10:42
PROVIDERS: PCP Family Medicine Geriatric Medicine; Visit Provider Family Medicine Geriatric Medicine
DX: E11.65 Type 2 diabetes mellitus with hyperglycemia (principal); E55.9 Vitamin D deficiency, unspecified; I10 Essential (primary) hypertension; E29.1 Testicular hypofunction; Z12.5 Encounter for screening for malignant neoplasm of prostate
CPT/HCPCS: 36415; 80053; 80061; 82306; 83036; 84153; 84403; 84443; 85025; G0103

== ENCOUNTER → 2022-07-10 | Outpatient (CLI) | payer MEDICARE, OTHER, SELFPAY ==
[2022-07-10 16:09] LABS: PSA,Total- Diagnostic < 0.01 ng/mL (0.0-4.0)
== END | disposition home or self-care (01) ==
LOC: LAB 14:45
PROVIDERS: PCP Family Medicine Geriatric Medicine; Referring Provider Urology; Visit Provider Urology
DX: C61 Malignant neoplasm of prostate (principal)
CPT/HCPCS: 36415; 84153

== ENCOUNTER → 2022-08-27 | Outpatient (CLI) | payer MEDICARE, OTHER, SELFPAY ==
[2022-08-27 10:29] LABS: Absolute Lymphocyte Count 0.96 X10^3/uL (0.83-4.51); Absolute Neutrophil Count 3.6 X10^3/uL (2.0-7.7); Basophil# 0.05 X10^3/uL; Basophil% 0.9 % (0-1); Eosinophils% 1.8 % (0-5); Hematocrit 40.1 % (40-54); Hemoglobin 13.5 g/dL (13.0-16.5); Lymphocyte # 0.96 X10^3/ul (0.83-4.51); Lymphocyte % 17.6 % (19-41); Mean Corp Hgb Conc 33.7 g/dL (32-36); Mean Corpuscular Volume 86.2 fL (80-94); Mean Platelet Vol. 9.4 fl (6.2-12.0); Monocyte# 0.64 X10^3/uL; Monocyte% 11.7 % (0-10); NRBC Flagged by Analyzer 0 % (0-5); Neutrophil # 3.64 X10^3/uL (2.7-7.7); Neutrophil % 66.9 % (47-70); Platelet Count 203 K/mm3 (150-450); RBC Distribution Width SD 43.4 fl (35.1-43.9); Red Blood Count 4.65 M/mm3 (4.6-6.2); White Blood Count 5.5 K/mm3 (4.4-11.0)
[2022-08-27 10:50] LABS: Vitamin D,25 Hydroxy 62.6 ng/mL
[2022-08-27 11:01] LABS: AST(SGOT) 19 U/L (15-37); Alanine Aminotransfer ALT/SGPT 26 U/L (16-61); Albumin, Serum 3.4 g/dL (3.2-5.0); Alkaline Phosphatase 95 U/L (45-117); Anion Gap 6 (5-15); BUN 25 mg/dL (7-18); BUN/Creat Ratio 25.5 RATIO (10-20); Calcium,Total 8.6 mg/dL (8.5-10.1); Chloride 107 mmol/L (98-107); Creatinine, Serum 0.98 mg/dL (0.70-1.30); EST Glomerular Filtration Rate 78 mL/min (>60); Est Glom Filt Rate - Afr Amer 94 mL/min (>60); Globulin 3.4 g/dL (2.2-4.2); Glucose 163 mg/dL (74-106); Potassium 4.1 mmol/L (3.5-5.1); Protein, Total 6.8 g/dL (6.4-8.2); Sodium Level 139 mmol/L (136-145); Thyroid Stim Hormone (TSH) 1.92 uIU/mL (0.358-3.74)
[2022-08-27 14:13] LABS: Cholesterol 119 mg/dL (200); High Density Lipoprotein 39 mg/dL; Triglycerides 199 mg/dL; Very Low Density Lipoprotein 40 mg/dL (5-40)
== END | disposition home or self-care (01) ==
PROVIDERS: PCP Family Medicine Geriatric Medicine; Visit Provider Family Medicine Geriatric Medicine
DX: E11.65 Type 2 diabetes mellitus with hyperglycemia (principal); I10 Essential (primary) hypertension; E55.9 Vitamin D deficiency, unspecified
CPT/HCPCS: 36415; 80053; 80061; 82306; 83036; 84403; 84443; 85025

== ENCOUNTER → 2022-11-30 | Outpatient (CLI) | payer MEDICARE, OTHER, SELFPAY ==
[2022-11-30 16:40] LABS: Absolute Neutrophil Count 5.9 X10^3/uL (2.0-7.7); Basophil# 0.06 X10^3/uL; Basophil% 0.7 % (0-1); Eosinophil# 0.12 X10^3/uL; Eosinophils% 1.4 % (0-5); Hematocrit 41.4 % (40-54); Hemoglobin 13.2 g/dL (13.0-16.5); Lymphocyte % 16.6 % (19-41); Mean Corp Hgb Conc 31.9 g/dL (32-36); Mean Corpuscular Hgb 28.3 pg (27.0-32.0); Mean Corpuscular Volume 88.7 fL (80-94); Monocyte# 0.89 X10^3/uL; Monocyte% 10.6 % (0-10); NRBC Flagged by Analyzer 0 % (0-5); Neutrophil # 5.89 X10^3/uL (2.7-7.7); Platelet Count 203 K/mm3 (150-450); RBC Distribution Width CV 14.6 % (11.6-14.6); RBC Distribution Width SD 46.8 fl (35.1-43.9); Red Blood Count 4.67 M/mm3 (4.6-6.2); White Blood Count 8.4 K/mm3 (4.4-11.0)
[2022-11-30 17:11] LABS: Vitamin D,25 Hydroxy 47.6 ng/mL
[2022-11-30 17:19] LABS: ALB/GLOB Ratio 0.9 RATIO (0.9-2.4); AST(SGOT) 6 U/L (15-37); Alanine Aminotransfer ALT/SGPT 11 U/L (16-61); Albumin, Serum 3.3 g/dL (3.2-5.0); Alkaline Phosphatase 102 U/L (45-117); Anion Gap 8 (5-15); BUN 25 mg/dL (7-18); BUN/Creat Ratio 22.9 RATIO (10-20); Calcium,Total 8.8 mg/dL (8.5-10.1); Chloride 107 mmol/L (98-107); Cholesterol 122 mg/dL (200); Creatinine, Serum 1.09 mg/dL (0.70-1.30); EST Glomerular Filtration Rate 69 mL/min (>60); Est Glom Filt Rate - Afr Amer 84 mL/min (>60); Globulin 3.5 g/dL (2.2-4.2); Glucose 112 mg/dL (74-106); High Density Lipoprotein 39 mg/dL; Potassium 4.7 mmol/L (3.5-5.1); Protein, Total 6.8 g/dL (6.4-8.2); Sodium Level 143 mmol/L (136-145); Triglycerides 419 mg/dL
[2022-11-30 18:16] LABS: Hemoglobin A1c 7.2 % (3.8-5.6)
== END | disposition home or self-care (01) ==
LOC: MTLAB 15:54 → LAB 16:21
PROVIDERS: PCP Family Medicine Geriatric Medicine; Referring Provider Family Medicine Geriatric Medicine; Visit Provider Family Medicine Geriatric Medicine
DX: E11.65 Type 2 diabetes mellitus with hyperglycemia (principal); I10 Essential (primary) hypertension; E78.5 Hyperlipidemia, unspecified; E55.9 Vitamin D deficiency, unspecified; F52.8 Other sexual dysfunction not due to a substance or known physiological condition
CPT/HCPCS: 36415; 80053; 80061; 82306; 83036; 84403; 84443; 85025

== ENCOUNTER 2022-12-03 13:51 | Outpatient (CLI) | payer MEDICARE, OTHER, SELFPAY ==
--- NOTE | 2022-12-03 13:56 | ECHOCS_ITS ---
Reason For Study: FELICIA Procedure This was a 2D Doppler, Color Flow transthoracic echocardiogram. The study was technically difficult. Contrast injection was performed. Exam performed in department. Left Ventricle Normal LV size. Left ventricular systolic function is normal. The estimated ejection fraction is 60 %. Stage 1 diastolic dysfunction. No regional wall motion abnormalities noted. Right Ventricle Normal RV size. Normal systolic function. Atria Normal left atrium. Normal right atrium. Bubble contrast study negative for right to left interatrial shunt. Mitral Valve Normal mitral valve. Tricuspid Valve Normal tricuspid valve. Unable to estimate RV systolic pressure due to inadequate jet, pulmonary artery pressure probably normal. Aortic Valve Trisinus/trileaflet aortic valve. Pulmonic Valve Normal pulmonic valve. Great Vessels Normal aortic root. The pulmonary artery is normal size. Normal inferior vena cava. Pericardium/Pleural No pericardial effusion. Medication 22 gauge I.V. with prn adaptor inserted into right arm. Diluted definity 3ml given slow IV push to enhance endocardial definition. MMode/2D Measurements & Calculations LVIDd: 4.6 cm IVSd: 1.2 cm Ao root diam: 3.7 cm LVIDs: 3.7 cm LVPWd: 1.1 cm LA dimension: 4.5 cm RVDd: 3.6 cm FS: 20.5 % LAV(MOD-bp): 52.8 ml LA A4 area: 14.7 cm2 RA A4 area: 12.2 cm2 LAV(MOD-bp) Indexed: 26.1 ml/m2 LAV(MOD-sp2): 59.5 ml LAV(MOD-sp4): 37.0 ml TAPSE: 2.2 cm Time Measurements MV dec time: 0.44 sec Doppler Measurements & Calculations MV E max khang: 65.3 cm/sec Lat Peak E' Khang: 5.6 cm/sec Med Peak E' Khang: 6.5 cm/sec MV A max khang: 101.1 cm/sec E/E' lat: 11.7 E/E' med: 10.1 MV E/A: 0.65 MV V2 max: 114.3 cm/sec MV P1/2t max khang: 80.6 cm/sec Ao V2 max: 170.2 cm/sec MV max P.2 mmHg MV P1/2t: 139.7 msec Ao max P.6 mmHg MV V2 mean: 55.5 cm/sec MV dec slope: 169.0 cm/sec2 Ao V2 mean: 110.9 cm/sec MV mean P.4 mmHg MVA(P1/2t): 1.6 cm2 Ao mean P.8 mmHg MV V2 VTI: 34.2 cm Ao V2 VTI: 39.2 cm AV (velocity ratio): 0.69 LV V1 max: 113.4 cm/sec PA V2 max: 133.9 cm/sec PI end-d khang: 73.1 cm/sec LV V1 max P.1 mmHg LV V1 mean P.3 mmHg LV V1 mean: 85.5 cm/sec LV V1 VTI: 27.0 cm ECHO/Echo Complete W/ Contrast Interpretation Summary Normal LV size. Left ventricular systolic function is normal. The estimated ejection fraction is 60 %. Stage 1 diastolic dysfunction. Bubble contrast study negative for right to left interatrial shunt. Ordering Physician: Montana Jones V Referring Physician: Montana Jones V Performed By: Amrit Davis RCS
== END 2022-12-03 23:59 | disposition home or self-care (01) ==
PROVIDERS: PCP Family Medicine Geriatric Medicine; Referring Provider Internal Medicine Pulmonary Disease; Visit Provider Internal Medicine Pulmonary Disease
DX: G47.33 Obstructive sleep apnea (adult) (pediatric) (principal); G47.37 Central sleep apnea in conditions classified elsewhere
CPT/HCPCS: 93306; Q9957; A4216; C8929

== ENCOUNTER 2022-12-30 20:27 | Emergency (ER) | payer MEDICARE, OTHER, SELFPAY ==
[2022-12-30 20:27] VITALS: BP 153/100; PULSE 69; RESP 18; TEMP 36.6; O2SAT 100; BMI 32.5
[2022-12-30 20:31] VITALS: BP 140/52; PULSE 69; RESP 19; O2SAT 95
--- NOTE | 2022-12-30 21:03 | CT_ITS ---
EXAM: CT CERVICAL SPINE WITHOUT INTRAVENOUS CONTRAST CLINICAL INDICATION: fall TECHNIQUE: Helically acquired images were obtained of the cervical spine without intravenous contrast. 2D reformatted images were reviewed. This CT exam was performed using one or more of the following dose reduction techniques: automated exposure control, adjustment of the mA and/or kV according to patient size, and/or use of iterative reconstruction technique. COMPARISON: No relevant prior studies available. FINDINGS: VERTEBRAE: There are large anterior osteophytes extending from C2 down through C7. There is an incomplete posterior arch of C1 which is an anatomic variant. No fracture. No traumatic subluxation. No discrete lytic or blastic abnormality. Normal alignment. Normal craniocervical junction and cervicothoracic junction. DISCS/SPINAL CANAL/NEURAL FORAMINA: Unremarkable. Disc heights are preserved. No critical stenosis. SOFT TISSUES: Unremarkable. No prevertebral soft tissue swelling. LYMPH NODES: Unremarkable. No cervical adenopathy. LUNG APICES: Unremarkable as visualized. Clear. CT/Spine Cervical without Contras IMPRESSION: 1. No acute osseous abnormalities of cervical spine. 2. Large anterior osteophytes extending from C2 through C7. Electronically Signed: Román Lyons MD at 21:42 EST ,
--- NOTE | 2022-12-30 21:03 | CT_ITS ---
EXAM: CT HEAD WITHOUT INTRAVENOUS CONTRAST CLINICAL INDICATION: head injury TECHNIQUE: Multiple axial images were obtained of the head without intravenous contrast. This CT exam was performed using one or more of the following dose reduction techniques: automated exposure control, adjustment of the mA and/or kV according to patient size, and/or use of iterative reconstruction technique. COMPARISON: No relevant prior studies available. FINDINGS: BRAIN AND EXTRA-AXIAL SPACES: There is enlargement of ventricular system and cortical sulci. There is hypoattenuation in the periventricular white matter. No intra- or extra-axial hemorrhage. No evidence of acute infarct. No intracranial mass or mass effect. There is preservation of the snow/white matter interface. Posterior fossa structures are unremarkable. Basal cisterns are patent. BONES/JOINTS: Unremarkable. No discrete lytic or blastic abnormalities. SINUSES: Unremarkable as visualized. Clear. MASTOID AIR CELLS: Unremarkable. Clear. ORBITS: Visualized globes, extraocular muscles, optic nerves and retrobulbar fat appear unremarkable. CT/Brain/Head without Contrast IMPRESSION: 1. No acute intracranial abnormality. 2. Underlying senescent change with small vessel ischemia. Electronically Signed: Román Lyons MD at 21:41 EST ,
--- NOTE | 2022-12-30 21:03 | EX.ED.GENINJ ---
HPI History of Present Illness Chief Complaint: Fall Detail of Chief Complaint: Fall with head injury Informant: patient and spouse/S.O. Narrative Narrative: Patient presents to the emergency department after sustaining a fall while at restoration. He was getting up and started to walk when he thinks he tripped over his feet and struck his head on the wall. No loss of consciousness per who was with him. He frequently will tripped over his own feet as he has history of neuropathy and does not always know where his feet are. Afterwards patient was confused and did not recognize people and she brings him in for evaluation. Patient does complain of some discomfort to his head where he bumped his head. He is not anticoagulated. Denies significant neck pain. Denies chest pain or palpitations or racing heart. Denies feeling lightheaded or dizzy prior to the fall. [facility] Medical History Asymptomatic PVCs Atherosclerotic heart disease of [place] coronary artery without angina pectoris Carotid artery disease Diabetes type 2, controlled Dyslipidemia Essential hypertension GERD (gastroesophageal reflux disease) Hepatitis B HTN (hypertension) Malignant neoplasm of prostate Mixed hyperlipidemia Neuropathy Normal pressure hydrocephalus Obesity Premature atrial contractions Premature ventricular contraction Sinus bradycardia Sleep apnea, obstructive Syncope Wide-complex tachycardia Home Medications calcium carbonate 500 mg-vitamin D3 200 unit-vitamin K2 90 mcg tablet 1 tab PO DAILY 12/20/17 [History Last Taken Unknown] empagliflozin 25 mg tablet (Jardiance) 25 mg PO DAILY 12/20/17 [History Last Taken Unknown] triamcinolone acetonide 0.1 % topical cream 1 applic topical DAILY PRN SKIN 12/20/17 [History Last Taken Unknown] carbidopa 25 mg-levodopa 100 mg tablet 1 tab PO TID 01/12/20 [History Last Taken Unknown] metoprolol succinate 25 mg tablet,extended release 24 hr (Toprol XL) 12.5 mg PO DAILY 01/12/20 [History Last Taken Unknown] atorvastatin 40 mg tablet 20 mg PO QHS cholesterol 01/06/21 [History Last Taken Unknown] insulin glargine 100 unit-lixisenatide 33 mcg/mL subcutaneous pen (Soliqua 100/33) 45 unit subcut QAM 01/21/22 [History Last Taken Unknown] metformin 1,000 mg tablet 1,000 mg PO BID 01/21/22 [History Last Taken Unknown] vibegron 75 mg tablet (Gemtesa) 75 mg PO DAILY 01/21/22 [History Last Taken Unknown] Allergy/AdvReac Type Severity Reaction Status Date / Time rosuvastatin [From Crestor] AdvReac Severe Flu like Verified 12/30/22 20:30 symptoms adhesive tape AdvReac skin tears Verified 12/30/22 20:30 Family History Father COPD (chronic obstructive pulmonary disease) CAD (coronary artery disease) Mother CVA (cerebral vascular accident) Brother CAD (coronary artery disease) Myocardial infarction, Onset Age: 61 Surgical History History of cataract surgery History of cholecystectomy History of prostatectomy History of tonsillectomy Social History Smoking Status: Never smoker ROS ROS ED ROS Narrative Fall with head injury Review of Systems ROS Unobtainable: other Constitutional Constitutional ED: Reports lethargy; Denies chills, fever(s), sweats or weight loss Eyes Eyes: Denies blurry vision, change in vision or diplopia ENT ENT ED: Denies rhinorrhea or sore throat Cardiovascular Cardiovascular: Denies chest pain, orthopnea or racing heartbeat Respiratory/Chest Respiratory/Chest: Denies cough, dyspnea, dyspnea on exertion, orthopnea or sputum Gastrointestinal Gastrointestinal: Denies abdominal pain, diarrhea, nausea or vomiting Genitourinary Genitourinary ED: Denies dysuria, hematuria or urinary frequency Musculoskeletal Musculoskeletal: Denies arthralgias, back pain, myalgias or neck pain Integumentary Denies abscess, Abrasions or rash Neurologic Neurologic: Reports headache(s); Denies weakness Psychiatric Psychiatric: Denies anxiety, depression or suicidal thoughts Endocrine Endocrinology: Denies polydipsia, polyphagia or polyuria Hematologic/Lymphatic Hematologic/Lymphatic: Denies easy bleeding, easy bruising or lymphadenopathy Allergic/Immunologic Allergic/Immunologic ED: Denies mouth swelling, tongue swelling or urticaria EXAM Physical Exam Const Vital Signs: 12/30/22 20:27 12/30/22 20:31 12/30/22 20:59 Temperature 97.9 F Temperature Source Temporal Pulse Rate 69 69 Respiratory Rate 18 19 H Respiratory Effort Normal Non-Labored Respiratory Depth Normal Respiratory Pattern Normal Blood Pressure 153/100 H 140/52 H Blood Pressure Mean 117 81 Pulse Ox 100 95 Oxygen Delivery Method Room Air Room Air Room Air 12/30/22 21:38 Temperature Temperature Source Pulse Rate 60 Respiratory Rate 15 Respiratory Effort Respiratory Depth Respiratory Pattern Blood Pressure 144/57 H Blood Pressure Mean 86 Pulse Ox Oxygen Delivery Method Positive well nourished and well developed General Appearance ED: well developed and NAD HEENT Reports TM's clear and moist mucous membranes normocephalic and atraumatic; Negative for trauma or tenderness Tympanic Membrane ED: Yes TM's clear Eyes PERRL and EOMs intact bilaterally General Eye ED: Negative for pale conjunctiva or scleral icterus Neck no lymphadenopathy, supple and no JVD General: Negative for tenderness Chest Wall inspection of chest normal and palpation of chest normal Chest: Negative for tenderness Resp normal respiratory effort and clear to auscultation bilaterally Effort and Inspection: Negative for respiratory distress or pain with movement Auscultation: Negative for rhonchi, wheezes or diminished lung sounds Cardio regular rate, regular rhythm, S1 normal heart sound, S2 normal heart sound and no murmurs Peripheral Pulses: pulses 2+ throughout GI normal to inspection, nondistended, normoactive bowel sounds, soft to palpation, non-tender, non-distended and no masses Back/Spine no CVA tenderness and no thoracic nor lumbar tenderness Extremity normal to inspection General Extremety ED: Negative for edema General Extremity: Negative for edema Neuro oriented x3, CN's II-XII intact bilaterally, no sensory deficits noted and gait normal Sensorium / Orientation: awake, alert, oriented to person, oriented to place and oriented to time Motor Exam: strength 5/5 throughout and strength abnormal Psych mental status grossly normal Skin no rashes or lesions noted and no wounds MDM MDM MDM Narrative Medical decision making narrative: Patient presents with mechanical fall and head injury with some memory loss associated with a fall. In the differential would be intracranial hemorrhage versus concussion. There were no other symptoms prior to the fall. Clinically he looks well and is returning to baseline. I did obtain a CT scan of the brain and C-spine which did not show any acute traumatic injury. Patient was reevaluated at 2245 and is back to his baseline. He feels well. Will discharge to home and advised to follow-up with primary care physician within next 3 to 5 days. Lab Data Labs: Laboratory Results - last 24 hr 12/30/22 20:55 POC Glucose 170 H Radiography Diagnostic Testing: Clinical Impression(s) from Imaging Studies Brain CT 12/30/22 21:03 IMPRESSION: 1. No acute intracranial abnormality. 2. Underlying senescent change with small vessel ischemia. Electronically Signed: Román Lyons MD at 21:41 EST , Cervical Spine CT 12/30/22 21:03 IMPRESSION: 1. No acute osseous abnormalities of cervical spine. 2. Large anterior osteophytes extending from C2 through C7. Electronically Signed: Román Lyons MD at 21:42 EST , Discharge Plan Triage Chief Complaint: Fall ED Provider: Pamela Cramer Dx/Rx/DC Orders Clinical Impression: Concussion, Closed head injury, Fall Instructions: ED Concussion, ED Mechanical Fall, ED Head Injury (Adult), ED Fall Prevention Prescriptions: No Action triamcinolone acetonide 0.1 % cream 1 applic TOPICAL DAILY PRN (Reason: SKIN) Jardiance 25 mg tablet 25 mg PO DAILY calcium carb-vitamin D3-vit K2 500 mg calcium- 200 unit-90 mcg tablet 1 tab PO DAILY metoprolol succinate [Toprol XL] 25 mg tablet extended release 24 hr 12.5 mg PO DAILY carbidopa-levodopa 25-100 mg tablet 1 tab PO TID Soliqua 100/33 100 unit-33 mcg/mL insulin pen 45 unit subcut QAM Gemtesa 75 mg tablet 75 mg PO DAILY metformin 1,000 mg tablet 1,000 mg PO BID atorvastatin 40 mg tablet 20 mg PO QHS Primary Care Provider: Fredis Moon Chi Referrals: Fredis Moon Chi, MD [Primary Care Provider] - 3-5 Days Disposition Disposition: Home, Self Care
--- NOTE | 2022-12-30 21:10 | ED.RN ---
2039 dr cummings made aware of pt's c/o.
[2022-12-30 21:12] LABS: Bedside Glucose 170 mg/dL (74-106)
[2022-12-30 21:38] VITALS: BP 144/57; PULSE 60; RESP 15
[2022-12-30 23:01] VITALS: BP 132/61; PULSE 60; RESP 15; O2SAT 96
== END 2022-12-30 23:02 | disposition home or self-care (01) ==
PROVIDERS: Emergency Provider Emergency Medicine; PCP Family Medicine Geriatric Medicine; Visit Provider Emergency Medicine
DX: S06.0X0A Concussion without loss of consciousness, initial encounter (principal); E11.40 Type 2 diabetes mellitus with diabetic neuropathy, unspecified; Z79.4 Long term (current) use of insulin; I25.10 Atherosclerotic heart disease of native coronary artery without angina pectoris; I10 Essential (primary) hypertension; E78.2 Mixed hyperlipidemia; G47.33 Obstructive sleep apnea (adult) (pediatric); Z79.84 Long term (current) use of oral hypoglycemic drugs; Z79.899 Other long term (current) drug therapy; W01.0XXA Fall on same level from slipping, tripping and stumbling without subsequent striking against object, initial encounter
CPT/HCPCS: 70450; 72125; 82962; 99283

== ENCOUNTER → 2023-01-15 | Outpatient (CLI) | payer MEDICARE, OTHER, SELFPAY ==
[2023-01-15 12:43] LABS: PSA,Total- Diagnostic < 0.01 ng/mL (0.0-4.0)
== END | disposition home or self-care (01) ==
LOC: LAB 11:00
PROVIDERS: PCP Family Medicine Geriatric Medicine; Visit Provider Urology
DX: C61 Malignant neoplasm of prostate (principal)
CPT/HCPCS: 36415; 84153

== ENCOUNTER → 2023-03-02 | Outpatient (CLI) | payer MEDICARE, OTHER, SELFPAY ==
[2023-03-02 14:28] LABS: Absolute Lymphocyte Count 1.26 X10^3/uL (0.83-4.51); Absolute Neutrophil Count 4.1 X10^3/uL (2.0-7.7); Basophil# 0.06 X10^3/uL; Basophil% 0.9 % (0-1); Eosinophil# 0.19 X10^3/uL; Eosinophils% 2.9 % (0-5); Hematocrit 41.3 % (40-54); Hemoglobin 13.3 g/dL (13.0-16.5); Lymphocyte # 1.26 X10^3/ul (0.83-4.51); Lymphocyte % 19.5 % (19-41); Mean Corp Hgb Conc 32.2 g/dL (32-36); Mean Corpuscular Hgb 27.7 pg (27.0-32.0); Mean Platelet Vol. 9.3 fl (6.2-12.0); Monocyte# 0.81 X10^3/uL; Monocyte% 12.5 % (0-10); NRBC Flagged by Analyzer 0 % (0-5); Neutrophil # 4.08 X10^3/uL (2.7-7.7); Neutrophil % 63.1 % (47-70); Platelet Count 206 K/mm3 (150-450); RBC Distribution Width CV 14.3 % (11.6-14.6); RBC Distribution Width SD 44.8 fl (35.1-43.9); White Blood Count 6.5 K/mm3 (4.4-11.0)
[2023-03-02 14:46] LABS: Hemoglobin A1c 7.5 % (3.8-5.6)
[2023-03-02 14:56] LABS: AST(SGOT) 18 U/L (15-37); Alanine Aminotransfer ALT/SGPT 10 U/L (16-61); Albumin, Serum 3.4 g/dL (3.2-5.0); Alkaline Phosphatase 99 U/L (45-117); Anion Gap 7 (5-15); BUN 25 mg/dL (7-18); BUN/Creat Ratio 23.4 RATIO (10-20); Calcium,Total 8.7 mg/dL (8.5-10.1); Chloride 106 mmol/L (98-107); Cholesterol 119 mg/dL (200); Creatinine, Serum 1.07 mg/dL (0.70-1.30); EST Glomerular Filtration Rate 71 mL/min (>60); Est Glom Filt Rate - Afr Amer 85 mL/min (>60); Globulin 3.4 g/dL (2.2-4.2); Glucose 129 mg/dL (74-106); High Density Lipoprotein 40 mg/dL; Potassium 4.5 mmol/L (3.5-5.1); Protein, Total 6.8 g/dL (6.4-8.2); Sodium Level 139 mmol/L (136-145); Thyroid Stim Hormone (TSH) 2.27 uIU/mL (0.358-3.74); Triglycerides 337 mg/dL; Very Low Density Lipoprotein 67 mg/dL (5-40)
== END | disposition home or self-care (01) ==
LOC: POLAB3 13:39
PROVIDERS: PCP Family Medicine Geriatric Medicine; Visit Provider Family Medicine Geriatric Medicine
DX: I10 Essential (primary) hypertension (principal); E11.65 Type 2 diabetes mellitus with hyperglycemia; E55.9 Vitamin D deficiency, unspecified; E78.5 Hyperlipidemia, unspecified
CPT/HCPCS: 36415; 80053; 80061; 82306; 83036; 84403; 84443; 85025

== ENCOUNTER → 2023-04-05 | Outpatient (CLI) | payer MEDICARE, OTHER, SELFPAY ==
[2023-04-05 17:17] LABS: BNP,B-Type NATRIURETIC PEPTIDE 14.8 pg/mL (0-100)
[2023-04-05 17:20] LABS: Anion Gap 9 (5-15); BUN 27 mg/dL (7-18); BUN/Creat Ratio 24.1 RATIO (10-20); Calcium,Total 9.3 mg/dL (8.5-10.1); Chloride 107 mmol/L (98-107); Creatinine, Serum 1.12 mg/dL (0.70-1.30); EST Glomerular Filtration Rate 67 mL/min (>60); Est Glom Filt Rate - Afr Amer 81 mL/min (>60); Glucose 200 mg/dL (74-106); Potassium 4.4 mmol/L (3.5-5.1); Sodium Level 142 mmol/L (136-145)
--- OUTSIDE RECORDS SUMMARY | 2023-04-05 19:30 | XMS RPT_ITS | CCD ---
Author Name Unknown Address [address] [place] [address] Organization [facility] Care Team Providers Care Visiting Housekeeper Name Role Phone Sabiha ADLER, Charity Perry Unavailable Unavailable Rosa Harris Unavailable Hailey Huerta Unavailable Unavailable Hailey Huerta Unavailable Unavailable Rosa Harris Unavailable Fredis Moon Chi Primary Care Provider Allergies Allergy Classification Reported Allergen(s) Allergy Type Date of Onset Reaction(s) Facility (5 sources) Hmg-Coa Reductase Inhibitors (Statins) drug allergy flu like symptoms Mar Lin [employer] [facility] Work Phone: (5 sources) rosuvastatin Drug Allergy 5 flu like symptoms Mar Lin [facility]arke [facility] Work Phone: (2 sources) Adhesive Tape-Silicones Drug Allergy 2 Rash [facility] Medications Completed/Discontinued Medications Medication Drug Class(es) Dates Sig (Normalized) Sig (Original) 0.5 ml albiglutide 100 mg/ml pen injector (5 sources) TANZEUM 50 MG PE N One injection once weekly. ALBIGLUTIDE [id number] Alexandra Baum NP aspirin 81 mg delayed release oral tablet (20 sources) Platelet Aggregation Inhibitor, Nonsteroidal Anti-inflammatory Drug Start: 12-18-2016 take 1 tablet by mouth once daily ASPIRIN EC 81 MG TBEC One tablet by mouth daily ASPIRIN [id number] Charity Landis RN Problems Active Problems Problem Classification Problem Date Documented Date Episodic/Chronic Cardiac dysrhythmias (1 source) Bradycardia; Translations: [Bradycardia, unspecified] Onset: 11-21-2014 11-21-2014 Chronic Coronary atherosclerosis and other heart disease (20 sources) Atherosclerotic heart disease of [place] coronary artery without angina pectoris; Translations: [Coronary atherosclerosis] Onset: 09-20-2012 12-10-2015 Chronic Diabetes mellitus with complications (2 sources) Type 2 diabetes mellitus; Translations: [Type II or unspecified type diabetes mellitus without mention of complication, uncontrolled] Onset: 09-14-2007 09-14-2007 Chronic Diabetes mellitus without complication (5 sources) Diabetes mellitus; Translations: [Type 2 diabetes mellitus without complications] Onset: 09-20-2012 09-20-2012 Chronic Disorders of lipid metabolism (5 sources) Hyperlipidemia; Translations: [Hyperlipidemia, unspecified] Onset: 09-20-2012 09-20-2012 Chronic Essential hypertension (5 sources) Hypertensive disorder; Translations: [Essential (primary) hypertension] Onset: 09-20-2012 09-20-2012 Chronic Immunizations and screening for infectious disease (2 sources) Contact with or exposure to other viral diseases; Translations: [Close exposure to COVID-19 virus] Episodic Other nervous system disorders (5 sources) Carpal tunnel syndrome, unspecified upper limb; Translations: [Carpal tunnel syndrome] Onset: 07-18-2013 07-20-2013 Chronic Other nutritional; endocrine; and metabolic disorders (1 source) Overweight; Translations: [Overweight] Onset: 05-14-2016 05-14-2016 Chronic Other nutritional; endocrine; and metabolic disorders (7 sources) Body mass index (BMI) 30.0-30.9, adult; Translations: [Body mass index (BMI) 36.0-36.9, adult] Onset: 05-15-2013 05-14-2016 Chronic Other nutritional; endocrine; and metabolic disorders (4 sources) Body mass index (BMI) 36.0-36.9, adult; Translations: [Body Mass Index 36.0-36.9, adult] Onset: 05-15-2013 11-21-2014 Chronic Other nutritional; endocrine; and metabolic disorders (4 sources) Body mass index (BMI) 37.0-37.9, adult; Translations: [Body Mass Index 37.0-37.9, adult] Onset: 05-15-2013 05-15-2013 Chronic Spondylosis; intervertebral disc disorders; other back problems (5 sources) Displacement of lumbar intervertebral disc without myelopathy; Translations: [Displacement of lumbar intervertebral disc without myelopathy] Onset: 09-27-2013 09-27-2013 Chronic Thyroid disorders (5 sources) Thyroid nodule; Translations: [Nontoxic single thyroid nodule] Onset: 03-10-2012 03-11-2012 Chronic Past or Other Problems Problem Classification Problem Date Documented Da te Episodic/Chronic Cardiac dysrhythmias (9 sources) Palpitations; Translations: [Bradycardia] Onset: 09-20-2012 09-20-2012 Episodic Lymphadenitis (5 sources) Cervical lymphadenopathy; Translations: [Localized enlarged lymph nodes] 03-01-2012 Episodic Malaise and fatigue (12 sources) Fatigue; Translations: [Other fatigue] Onset: 07-12-2011 Resolved: 12-10-2015 10-06-2012 Episodic Other and unspecified benign neoplasm (10 sources) Hemangioma of skin; Translations: [Hemangioma of skin and subcutaneous tissue] Onset: 05-12-2011 Resolved: 12-10-2015 05-12-2011 Episodic Other infections; including parasitic (10 sources) Infestation by Sarcoptes scabiei duran hominis; Translations: [Scabies] Onset: 05-12-2011 Resolved: 12-10-2015 05-12-2011 Episodic Other lower respiratory disease (10 sources) Dyspnea; Translations: [Shortness of breath] Onset: 10-06-2012 Resolved: 12-10-2015 12-10-2015 Episodic Other non-traumatic joint disorders (5 sources) Pain in unspecified wrist; Translations: [Pain in joint, forearm] Onset: 09-27-2013 09-27-2013 Episodic Other nutritional; endocrine; and metabolic disorders (4 sources) Overweight; Translations: [Overweight] Onset: 05-14-2016 05-14-2016 Episodic Other skin disorders (12 sources) Skin tag; Translations: [Senile hyperkeratosis] Onset: 05-12-2011 Resolved: 12-10-2015 12-10-2015 Episodic Other skin disorders (8 sources) Senile hyperkeratosis; Translations: [Inflamed seborrheic keratosis] Onset: 05-12-2011 Resolved: 12-10-2015 12-10-2015 Episodic Residual codes; unclassified (5 sources) Family history of stroke; Translations: [Family history of stroke] 11-06-2013 Episodic Syncope (5 sources) Syncope; Translations: [Syncope and collapse] Onset: 05-15-2013 05-15-2013 Episodic Results Test Name Value Interpretation Reference Range Facil ity Vital Signs Date Time Vital Sign Value Performing Clinician Facility 05-29-2021 09:49-0400 Body temperature 97.81 [degF] Jami Collazo APRN.RF DESIGN ENGINEER Work Phone: [facility] 05-29-2021 09:49-0400 Body weight 91.44 kg Jami Collazo APRN.RF DESIGN ENGINEER Work Phone: [facility] 05-29-2021 09:49-0400 Diastolic blood pressure 74 mm[Hg] Jami Collazo APRN.RF DESIGN ENGINEER Work Phone: [facility] 05-29-2021 09:49-0400 Heart rate 59 /min Jami Collazo APRN.RF DESIGN ENGINEER Work Phone: [facility] 05-29-2021 09:49-0400 Respiratory rate 18 /min Jami Collazo APRN.RF DESIGN ENGINEER Work Phone: [facility] 05-29-2021 09:49-0400 SaO2% (BldA) [Mass fraction] 98 % Jami Collazo APRN.RF DESIGN ENGINEER Work Phone: [facility] 05-29-2021 09:49-0400 Systolic blood pressure 136 mm[Hg] Jami Collazo APRN.RF DESIGN ENGINEER Work Phone: [facility] 05-23-2021 11:24-0400 Body temperature 97.5 [degF] Alix Miltonler-Robbie MINT MACHINE OPERATOR.RF DESIGN ENGINEER Work Phone: [facility] 05-23-2021 11:24-0400 Body weight 93.35 kg lAix Cummins-Robbie MINT MACHINE OPERATOR.RF DESIGN ENGINEER Work Phone: [facility] 05-23-2021 11:24-0400 Diastolic blood pressure 68 mm[Hg] Alix Praisler-Wood MINT MACHINE OPERATOR.RF DESIGN ENGINEER Work Phone: [facility] 05-23-2021 11:24-0400 Heart rate 67 /min Alix Praisler-Wood MINT MACHINE OPERATOR.RF DESIGN ENGINEER Work Phone: [facility] 05-23-2021 11:24-0400 Respiratory rate 18 /min Alix Praisler-Wood MINT MACHINE OPERATOR.RF DESIGN ENGINEER Work Phone: [facility] 05-23-2021 11:24-0400 SaO2% (BldA) [Mass fraction] 96 % Alix Cummins-Robbie MINT MACHINE OPERATOR.RF DESIGN ENGINEER Work Phone: [facility] 05-23-2021 11:24-0400 Systolic blood pressure 118 mm[Hg] Alix Valle APRN.RF DESIGN ENGINEER Work Phone: [facility] 12-21-2016 13:02-0400 Body height 170.18 cm [facility] Work Phone: 12-21-2016 13:02-0400 Body mass index (BMI) [Ratio] 29.29 kg/m2 [facility] Work Phone: 12-21-2016 13:02-0400 Body weight 84.82 kg [facility] Work Phone: 12-21-2016 13:02-0400 Diastolic blood pressure 58 mm[Hg] Hailey Huerta [facility] Work Phone: 12-21-2016 13:02-0400 Heart rate 60 /min [facility] Work Phone: 12-21-2016 13:02-0400 Respiratory rate 16 /min [facility] Work Phone: 12-21-2016 13:02-0400 Systolic blood pressure 110 mm[Hg] [facility] Work Phone: 05-14-2016 08:57-0400 Body height 170.18 cm Rosa Harris Work Phone: [facility] Work Phone: 05-14-2016 08:57-0400 Body mass index (BMI) [Ratio] 30.63 kg/m2 Rosa Harris Work Phone: [facility] Work Phone: 05-14-2016 08:57-0400 Body surface area Derived from formula 2 m2 Rosa Parekhn Work Phone: [facility] Work Phone: 05-14-2016 08:57-0400 Body temperature 98.3 [degF] Rosa Fernandezalen Work Phone: [facility] Work Phone: 05-14-2016 08:57-0400 Body temperature 98.29 [degF] Rosa Fernandezalen Work Phone: [facility] Work Phone: 05-14-2016 08:57-0400 Body weight 88.72 kg Rosa Parekhn Work Phone: [facility] Work Phone: 05-14-2016 08:57-0400 Diastolic blood pressure 67 mm[Hg] Rosa Fernandezalen Work Phone: [facility] Work Phone: 05-14-2016 08:57-0400 Heart rate 63 /min Rosa Parekhn Work Phone: [facility] Work Phone: 05-14-2016 08:57-0400 Respiratory rate 16 /min Rosa Parekhn Work Phone: [facility] Work Phone: 05-14-2016 08:57-0400 SaO2% (BldA) [Mass fraction] 96 % Rosa Fernandezalen Work Phone: [facility] Work Phone: 05-14-2016 08:57-0400 Systolic blood pressure 111 mm[Hg] Rosa Steven Work Phone: [facility] Work Phone: 05-14-2016 08:57-0400 Weight 88.72 kg Charity Landis RN [facility] Work Phone: Encounters Encounter Date Encounter Type Care Provider Facility Start: 05-29-2021 End: 05-29-2021 Patient encounter procedure Jami Collazo APRN.RF DESIGN ENGINEER Work Phone: [facility] Procedures Date Procedure Procedure Detail Performing Clinician Start: 12-21-2016 End: 12-21-2016 Dietary management education, guidance, and counseling Hailey Huerta Start: 12-21-2016 End: 12-21-2016 Documentation of current medications Hailey Huerta Start: 12-21-2016 End: 12-21-2016 Follow Up Appt 1 year Josias Clayton Start: 12-21-2016 End: 12-21-2016 SARAH Turk MD Start: 05-14-2016 End: 05-14-2016 Dietary management education, guidance, and counseling Rosa Harris Work Phone: Start: 05-14-2016 End: 05-14-2016 Documentation of current medications Rosa Fernandezalen Work Phone: Start: 12-20-2015 End: 12-20-2015 Ecg routine ecg w/least 12 lds w/i&r Josias Turk MD Start: 12-20-2015 End: 01-21-2016 Echocardiography Josias Turk MD Start: 12-20-2015 End: 12-20-2015 Follow Up Appt 1 year Josias Clayton Start: 12-20-2015 End: 12-20-2015 PFGladis Turk MD Start: 12-20-2015 End: 12-20-2015 Ecg routine ecg w/least 12 lds w/i&r Josias Turk MD Start: 12-20-2015 End: 01-21-2016 Echocardiography Josias Turk MD Start: 12-20-2015 End: 12-20-2015 Follow Up Appt 1 year Josias Clayton Start: 12-20-2015 End: 12-20-2015 PFM Josias Turk MD Start: 11-21-2014 End: 11-22-2014 Documentation of current medications Josias Turk MD Start: 11-21-2014 End: 11-22-2014 Documentation of current medications Josias Turk MD Start: 05-07-2014 End: 05-08-2014 Documentation of current medications Raven Cameron PA-C Work Phone: Start: 05-07-2014 End: 05-07-2014 Follow Up Appt 6 months Raven mitchell PA-C Work Phone: Start: 05-07-2014 End: 05-07-2014 PF Raven Cameron PA-C Work Phone: Start: 05-07-2014 End: 05-08-2014 Documentation of current medications Raven Cameron PA-C Work Phone: Start: 05-07-2014 End: 05-07-2014 Follow Up Appt 6 months Raven mitchell PA-C Work Phone: Start: 05-07-2014 End: 05-07-2014 PF Raven Cameron PA-C Work Phone: Start: 02-22-2014 End: 02-22-2014 Katie Ivyhan Steven Work Phone: Start: 11-06-2013 End: 11-06-2013 Follow Up Appt 6 months Josias Turk MD Start: 11-06-2013 End: 11-06-2013 MMM Josias Turk MD Start: 11-06-2013 End: 11-06-2013 Follow Up Appt 6 months Josias Turk MD Start: 11-06-2013 End: 11-06-2013 MMM Josias Turk MD Start: 05-15-2013 End: 04-26-2014 24 hour holter monitor Josias Turk MD Start: 05-15-2013 End: 05-15-2013 Follow Up Appt 6 months Josias Turk MD Start: 05-15-2013 End: 05-15-2013 PFM Josias Turk MD Start: 05-15-2013 End: 04-26-2014 24 hour holter monitor Josias Turk MD Start: 05-15-2013 End: 05-15-2013 Follow Up Appt 6 months Josias Turk MD Start: 05-15-2013 End: 05-15-2013 PFM Josias Turk MD Start: 10-06-2012 End: 05-15-2013 24 hour holter monitor Josias Turk MD Start: 10-06-2012 End: 10-06-2012 Ecg routine ecg w/least 12 lds w/i&r Josias Turk MD Start: 10-06-2012 End: 05-15-2013 Echocardiography Josias Turk MD Start: 10-06-2012 End: 10-06-2012 Follow Up Appt 6 months Josias Turk MD Start: 10-06-2012 End: 05-15-2013 Nuclear stress test -exercise Josias hill MD Start: 10-06-2012 End: 10-06-2012 PFM Josias Turk MD Start: 10-06-2012 End: 05-15-2013 24 hour holter monitor Josias Turk MD Start: 10-06-2012 End: 10-06-2012 Ecg routine ecg w/least 12 lds w/i&r Josias Turk MD Start: 10-06-2012 End: 05-15-2013 Echocardiography Josias Turk MD Start: 10-06-2012 End: 10-06-2012 Follow Up Appt 6 months Josias Turk MD Start: 10-06-2012 End: 05-15-2013 Nuclear stress test -exercise Josias hill MD Start: 10-06-2012 End: 10-06-2012 PFM Josias Turk MD Plan of Treatment Date Care Activity Detail Author Start: 05-29-2021 End: 06-12-2021 Influenza virus A and B RNA and SARS-CoV-2 (COVID-19) N gene panel - Respiratory specimen by BRIAN with probe detection COVID WITH FLUA+B, ROUTINE Microbiology Routine Close exposure to COVID-19 virus Expected: 05/29/2021, Expires: 06/12/2021 [facility] Work Phone: Immunizations Immunization Date Immunization Notes Care Provider Israel peng 12-17-2020 COVID-19 vaccine, fu ll dose (MODERNA) Jami Collazo APRN.RF DESIGN ENGINEER Work Phone: [facility] 03-05-2008 influenza virus vaccine, unspecified formulation Alix Valle APRN.RF DESIGN ENGINEER Work Phone: [facility] Work Phone: Payers Date Payer Category Payer Medicare MEDICARE MEDICAR E A AND B [id number] 2007-Present [phone] [place] [address] Medicare [id number] Social History Date Type Detail Facility [facility] Start: 05-23-2021 End: 05-29-2021 Alcohol intake Current non-drinker of alcohol (finding) [facility] Start: 1940 Sex Assigned At Not on file [facility] Start: 05-13-2021 End: 05-23-2021 Exposure to SARS-CoV-2 (event) Yes [facility] Work Phone: Start: 05-19-2021 End: 05-29-2021 Exposure to SARS-CoV-2 (event) Not sure [facility] Work Phone: Medical Equipment Procedure Code Equipment Code Equipment Origin al Text Equipment Identifier Dates INSULIN PEN NEEDLE Start: 05-15-2011 End: 10-06-2012 Influenza virus A and B RNA and SARS-CoV-2 (COVID-19) N gene panel BRIAN+probe (Resp) 05-29-2021 Note Date & Type Note Facility 05-29-2021 Influenza virus A and B RNA and SARS-CoV-2 (COVID-19) N gene panel BRIAN+probe (Resp) COVID 19 RESULT: SARS-CoV-2 (Agent of COVID-19) Not Detected by RT-PCR or equivalent method. celina [id number] ([employer])_EUA This test was developed and its performance characteristics determined by [facility]'s [facility] [place]. This test has been authorized by FDA under an Emergency Use Authorization (EUA). This test has been validated in accordance with the FDA's Guidance Document Policy for Diagnostics Testing in Laboratories Certified to Perform High Complexity Testing under CLIA prior to Emergency use Authorization for Coronavirus Disease 2019 during the Public Health Emergency issued on April 22, 2019. Test performed by [facility], [facility] [place], [address] [place] [address]. INFLUENZA A PCR: Negative for Influenza A by RT-PCR INFLUENZA B PCR: Negative for Influenza B by RT-PCR [facility] Progress note 05-29-2021 Note Date & Type Note Facility 05-29-2021 Note HNO ID: [id number] Author: Jami Collazo APRN.RF DESIGN ENGINEER Service: ? Author Type: Nurse Practitioner Type: Progress Notes Filed: 05/29/2021 10:25 AM Note Text: Subjective Patient came in because he was exposed to covid a week ago and has no symptoms at this time. The history is provided by the patient. No working second hand was used. Review of Systems Constitutional: Negative. Skin: Negative. Objective Physical Exam Constitutional: Appearance: Normal appearance. Cardiovascular: Rate and Rhythm: Normal rate and regular rhythm. Heart sounds: Normal heart sounds. Pulmonary: Effort: Pulmonary effort is normal. Breath sounds: Normal breath sounds. Neurological: Mental Status: He is alert. PAST MEDICAL HISTORY Diagnosis Date - Essential hypertension, benign - Other and unspecified hyperlipidemia - Restless legs syndrome (RLS) - Type II or unspecified type diabetes mellitus without mention of complication, uncontrolled - Unspecified sleep apnea PAST SURGICAL HISTORY Procedure Laterality Date - CHOLECYSTECTOMY - EXC/DSTRJ LINGUAL TONSIL ANY METHOD SPX - PAST SURGICAL HISTORY OF cysts ALLERGIES Adhesive Tape-Silicones MEDICATIONS insulin needles, DISPOSABLE, (PEN NEEDLE) 31 X 5/16 Ndle Use as directed. glimepiride 4 mg tablet Take by mouth 1/2 tab daily metFORMIN ER 500 mg 24 hr tablet Take by mouth two tablets every moning omega-3 acid ethyl esters (LOVAZA) 1 gram capsule Take 2 capsules by mouth twice daily. exenatide (BYETTA) 10 mcg/0.04 mL PnIj Inject twice daily before meals Alcohol Swabs PadM use as directed insulin glargine (LANTUS SOLOSTAR) 100 unit/mL (3 mL) SUBCUTANEOUS InPn Inject subcutaneously. 40 units at bedtime (may be more, as directed) blood sugar diagnostic (ACCU-CHEK CLARITZA) [facility] test strip CHECK BLOOD SUGARS 3-4 TIMES DAILY calcium carbonate 600 mg-cholecalciferol 200 units (CALCIUM 600 + D,3,) 600 mg(1,500mg) -200 unit ORAL Tab Take one(1) tablet daily. METOPROLOL TARTRATE 25 MG TAB Take one(1) tablet two(2) times daily. CPAP Use as directed. niacin sustained release 500 mg tablet Take 500 mg by mouth twice daily with meals. tamsulosin 0.4 mg Cp24 Take 0.4 mg by mouth. Hydrochlorothiazide 12.5 mg ORAL capsule Take 1 capsule by mouth once daily. lisinopril (ZESTRIL) 40 mg ORAL tablet Take 1 tablet by mouth once daily. aspirin(ECOTRIN LOW STRENGTH 81 MG TAB) Take one(1) tablet three times per week gabapentin(NEURONTIN 300 MG CAP) Takes 1-2 daily FAMILY HISTORY Problem Relation Age of Onset - Diabetes Daughter - Diabetes Son - Heart Father - Heart Brother - Thyroid Daughter - Thyroid Daughter - Thyroid Son - Diabetes Maternal Aunt - Diabetes Maternal Aunt Social History Tobacco Use - Smoking status: Former Smoker - Smokeless tobacco: Never Used Substance Use Topics - Alcohol use: No - Drug use: Not on file ASSESSMENT/PLAN: 1. Close exposure to COVID-19 virus - ICD9: V01.79, ICD10: Z20.822 - COVID WITH FLUA+B, ROUTINE Jami Collazo APRN.HEBER [facility] History of Present illness Narrative 05-29-2021 Jami Collazo APRN.HEBER - 05/29/2021 10:09 AM EDT Note Date & Type Note Facility 05-29-2021 History of Presen t illness Narrative Subjective Patient came in because he was exposed to covid a week ago and has no symptoms at this time. The history is provided by the patient. No working second hand was used. Review of Systems Constitutional: Negative. Skin: Negative. Objective Physical Exam Constitutional: Appearance: Normal appearance. Cardiovascular: Rate and Rhythm: Normal rate and regular rhythm. Heart sounds: Normal heart sounds. Pulmonary: Effort: Pulmonary effort is normal. Breath sounds: Normal breath sounds. Neurological: Mental Status: He is alert. PAST MEDICAL HISTORY Diagnosis Date Essential hypertension, benign Other and unspecified hyperlipidemia Restless legs syndrome (RLS) Type II or unspecified type diabetes mellitus without mention of complication, uncontrolled Unspecified sleep apnea PAST SURGICAL HISTORY Procedure Laterality Date CHOLECYSTECTOMY EXC/DSTRJ LINGUAL TONSIL ANY METHOD SPX PAST SURGICAL HISTORY OF cysts ALLERGIES Adhesive Tape-Silicones MEDICATIONS insulin needles, DISPOSABLE, (PEN NEEDLE) 31 X 5/16 Ndle Use as directed. glimepiride 4 mg tablet Take by mouth 1/2 tab daily metFORMIN ER 500 mg 24 hr tablet Take by mouth two tablets every moning omega-3 acid ethyl esters (LOVAZA) 1 gram capsule Take 2 capsules by mouth twice daily. exenatide (BYETTA) 10 mcg/0.04 mL PnIj Inject twice daily before meals Alcohol Swabs PadM use as directed insulin glargine (LANTUS SOLOSTAR) 100 unit/mL (3 mL) SUBCUTANEOUS InPn Inject subcutaneously. 40 units at bedtime (may be more, as directed) blood sugar diagnostic (ACCU-CHEK CLARITZA) [facility] test strip CHECK BLOOD SUGARS 3-4 TIMES DAILY calcium carbonate 600 mg-cholecalciferol 200 units (CALCIUM 600 + D,3,) 600 mg(1,500mg) -200 unit ORAL Tab Take one(1) tablet daily. METOPROLOL TARTRATE 25 MG TAB Take one(1) tablet two(2) times daily. CPAP Use as directed. niacin sustained release 500 mg tablet Take 500 mg by mouth twice daily with meals. tamsulosin 0.4 mg Cp24 Take 0.4 mg by mouth. Hydrochlorothiazide 12.5 mg ORAL capsule Take 1 capsule by mouth once daily. lisinopril (ZESTRIL) 40 mg ORAL tablet Take 1 tablet by mouth once daily. aspirin(ECOTRIN LOW STRENGTH 81 MG TAB) Take one(1) tablet three times per week gabapentin(NEURONTIN 300 MG CAP) Takes 1-2 daily FAMILY HISTORY Problem Relation Age of Onset Diabetes Daughter Diabetes Son Heart Father Heart Brother Thyroid Daughter Thyroid Daughter Thyroid Son Diabetes Maternal Aunt Diabetes Maternal Aunt Social History Tobacco Use Smoking status: Former Smoker Smokeless tobacco: Never Used Substance Use Topics Alcohol use: No Drug use: Not on file ASSESSMENT/PLAN: 1. Close exposure to COVID-19 virus - ICD9: V01.79, ICD10: Z20.822 - COVID WITH FLUA+B, ROUTINE Jami Collazo APRN.HEBER documented in this encounter [facility] Progress note 05-23-2021 Note Date & Type Note Facility 05-23-2021 Note HNO ID: [id number] Author: Alix Valle APRN.HEBER Service: ? Author Type: Nurse Practitioner Type: Progress Notes Filed: 05/23/2021 3:33 PM Note Text: This note was created using [employer]. Subjective Farhana Cameron is a 81 year old male who presents after exposure to COVID x 1 day from with COVID pneumonia. Per patient, they share a bed and both wear CPAP machines at night for FELICIA. Patient denies fever, chills, chest pain, SOB, changes in taste or smell. Review of Systems Constitutional: Negative. HENT: Negative. Eyes: Negative. Respiratory: Negative. Cardiovascular: Negative. Gastrointestinal: Negative. Endocrine: Negative. Genitourinary: Negative. Musculoskeletal: Negative. Skin: Negative. Allergic/Immunologic: Negative. Neurological: Negative. Hematological: Negative. Psychiatric/Behavioral: Negative. Objective BP 118/68 Pulse 67 Temp 36.4 ?C (97.5 ?F) Resp 18 Wt 93.4 kg (205 lb 12.8 oz) SpO2 96% BMI 32.47 kg/m? PAST MEDICAL HISTORY Diagnosis Date - Essential hypertension, benign - Other and unspecified hyperlipidemia - Restless legs syndrome (RLS) - Type II or unspecified type diabetes mellitus without mention of complication, uncontrolled - Unspecified sleep apnea PAST SURGICAL HISTORY Procedure Laterality Date - CHOLECYSTECTOMY - EXC/DSTRJ LINGUAL TONSIL ANY METHOD SPX - PAST SURGICAL HISTORY OF cysts ALLERGIES Adhesive Tape-Silicones MEDICATIONS insulin needles, DISPOSABLE, (PEN NEEDLE) 31 X 5/16 Ndle Use as directed. glimepiride 4 mg tablet Take by mouth 1/2 tab daily metFORMIN ER 500 mg 24 hr tablet Take by mouth two tablets every moning omega-3 acid ethyl esters (LOVAZA) 1 gram capsule Take 2 capsules by mouth twice daily. exenatide (BYETTA) 10 mcg/0.04 mL PnIj Inject twice daily before meals Alcohol Swabs PadM use as directed insulin glargine (LANTUS SOLOSTAR) 100 unit/mL (3 mL) SUBCUTANEOUS InPn Inject subcutaneously. 40 units at bedtime (may be more, as directed) blood sugar diagnostic (ACCU-CHEK CLARITZA) [facility] [place] strip CHECK BLOOD SUGARS 3-4 TIMES DAILY calcium carbonate 600 mg-cholecalciferol 200 units (CALCIUM 600 + D,3,) 600 mg(1,500mg) -200 unit ORAL Tab Take one(1) tablet daily. METOPROLOL TARTRATE 25 MG TAB Take one(1) tablet two(2) times daily. CPAP Use as directed. niacin sustained release 500 mg tablet Take 500 mg by mouth twice daily with meals. tamsulosin 0.4 mg Cp24 Take 0.4 mg by mouth. Hydrochlorothiazide 12.5 mg ORAL capsule Take 1 capsule by mouth once daily. lisinopril (ZESTRIL) 40 mg ORAL tablet Take 1 tablet by mouth once daily. aspirin(ECOTRIN LOW STRENGTH 81 MG TAB) Take one(1) tablet three times per week gabapentin(NEURONTIN 300 MG CAP) Takes 1-2 daily FAMILY HISTORY Problem Relation Age of Onset - Diabetes Daughter - Diabetes Son - Heart Father - Heart Brother - Thyroid Daughter - Thyroid Daughter - Thyroid Son - Diabetes Maternal Aunt - Diabetes Maternal Aunt Social History Tobacco Use - Smoking status: Former Smoker - Smokeless tobacco: Never Used Substance Use Topics - Alcohol use: No - Drug use: Not on file Physical Exam Vitals reviewed. Constitutional: General: He is not in acute distress. Appearance: Normal appearance. HENT: Head: Normocephalic and atraumatic. Right Ear: External ear normal. Left Ear: External ear normal. Cardiovascular: Rate and Rhythm: Normal rate and regular rhythm. Heart sounds: Normal heart sounds. Pulmonary: Effort: Pulmonary effort is normal. No respiratory distress. Breath sounds: Normal breath sounds. No wheezing. Musculoskeletal: General: Normal range of motion. Cervical back: Normal range of motion and neck supple. Skin: General: Skin is warm and dry. Coloration: Skin is not jaundiced. Neurological: General: No focal deficit present. Mental Status: He is alert and oriented to person, place, and time. Mental status is at baseline. Psychiatric: Mood and Affect: Mood normal. Behavior: Behavior normal. Assessment and Plan ASSESSMENT/PLAN: 1. Close exposure to COVID-19 virus - ICD9: V01.79, ICD10: Z20.822 - Isolate as much as possible - Retest in 3-5 days - Retest if symptoms develop - ASYMPTOMATIC ELECTIVE COVID-19 Sadiq Massey TEACHING PROVIDER (Physician/PA/MINT MACHINE OPERATOR) NOTE OF PERSONAL INVOLVEMENT IN CARE: I have personally seen and examined the patient and performed the medical decision-making components. I have reviewed the Advanced Practice Registered Nurse (MINT MACHINE OPERATOR) Student's documentation and verified the findings in the note as written. Any additions or changes are noted in bold/italics. Signature: Alix Valle Date: 05/23/2021 Time: 3:32 PM [facility] 05-23-2021 Patient Instructions Note Date & Type Note Facility 05-23-2021 Instructions Sadiq Massey - 05/23/2021 11:46 AM EDT Beginning Home Isolation Isolation is used to separate people infected with SARS-CoV-2, the virus that causes COVID-19, from people who are not infected. People who are in isolation should stay home until it s safe for them to be around others. In the home, anyone sick or infected should separate themselves from others by staying in a specific sick room or area and using a separate bathroom (if available). Isolation or Quarantine: What's the difference? Quarantine keeps someone who might have been exposed to the virus away from others. Isolation keeps someone who is infected with the virus away from others, even in their home. Who needs to isolate People who have COVID-19 People who have symptoms of COVID-19 and are able to recover at home People who have no symptoms (are asymptomatic) but have tested positive for infection with SARS-CoV-2 Steps to take Stay home except to get medical care Monitor your symptoms. Stay in a separate room from other household members, if possible Use a separate bathroom, if possible Avoid contact with other members of the household and pets Don t share personal household items, like cups, towels, and utensils Wear a mask when around other people, if you are able to When to seek emergency medical attention Look for emergency warning signs* for COVID-19. If someone is showing any of these signs, seek emergency medical care immediately: Trouble breathing Persistent pain or pressure in the chest New confusion Inability to wake or stay awake Bluish lips or face *This list is not all possible symptoms. Please call your medical provider for any other symptoms that are severe or concerning to you. Call 911 or call ahead to your local emergency facility: Notify the telecine operator that you are seeking care for someone who has or may have COVID-19. Ending Home Isolation - When you can be around others after you had or likely had COVID-19 When you can be around others after you had or likely had COVID-19 If You Test Positive for COVID-19 (Isolation) Everyone, regardless of vaccination status: 1. Stay home for 5 days. Note: Day 0 is your first day of symptoms or the date of collection of a positive viral test if no symptoms. Day 1 is the first full day after symptoms developed or test specimen was collected. 2. If you have no symptoms or your symptoms are resolving after 5 days, you can leave your house. 3. Continue to wear a mask around others for 5 additional days. If you have a fever, continue to stay home until your fever resolves, even if it is longer than 5 days. If You Were Exposed to Someone with COVID-19 (Quarantine) If you: 1. Have been boosted OR 2. Completed the primary series of Pfizer or Moderna vaccine within the last 6 months OR 3. Completed the primary series of J&J vaccine within the last 2 months THEN: 1. Wear a mask around others for 10 days. 2. Test on day 5, if possible. If you develop symptoms get a test and stay home. If You Were Exposed to Someone with COVID-19 (Quarantine) If you: 1. Completed the primary series of Pfizer or Moderna vaccine over 6 months ago and are not boosted OR 2. Completed the primary series of J&J over 2 months ago and are not boosted OR 3. Are unvaccinated THEN: 1. Stay home for 5 days. After that continue to wear a mask around others for 5 additional days. 2. If you can't quarantine you must wear a mask for 10 days. 3. Test on day 5 if possible. If you develop symptoms get a test and stay home. I had COVID-19 or I tested positive for COVID-19 and I have a weakened immune system If you have a weakened immune system (immunocompromised) due to a health condition or medication, you might need to stay home and isolate longer than 10 days. Talk to your healthcare provider for more information. Your doctor may work with an infectious disease expert at your local health department to determine when you can be around others. documented in this encounter [facility] History of Present illness Narrative 05-23-2021 Alix Valle APRN.RF DESIGN ENGINEER - 05/23/2021 11:42 AM EDT Note Date & Type Note Facility 05-23-2021 History of Presen t illness Narrative This note was created using [employer]. Subjective Farhana Cameron is a 81 year old male who presents after exposure to COVID x 1 day from with COVID pneumonia. Per patient, they share a bed and both wear CPAP machines at night for FELICIA. Patient denies fever, chills, chest pain, SOB, changes in taste or smell. Review of Systems Constitutional: Negative. HENT: Negative. Eyes: Negative. Respiratory: Negative. Cardiovascular: Negative. Gastrointestinal: Negative. Endocrine: Negative. Genitourinary: Negative. Musculoskeletal: Negative. Skin: Negative. Allergic/Immunologic: Negative. Neurological: Negative. Hematological: Negative. Psychiatric/Behavioral: Negative. Objective BP 118/68 Pulse 67 Temp 36.4 C (97.5 F) Resp 18 Wt 93.4 kg (205 lb 12.8 oz) SpO2 96% BMI 32.47 kg/m PAST MEDICAL HISTORY Diagnosis Date Essential hypertension, benign Other and unspecified hyperlipidemia Restless legs syndrome (RLS) Type II or unspecified type diabetes mellitus without mention of complication, uncontrolled Unspecified sleep apnea PAST SURGICAL HISTORY Procedure Laterality Date CHOLECYSTECTOMY EXC/DSTRJ LINGUAL TONSIL ANY METHOD SPX PAST SURGICAL HISTORY OF cysts ALLERGIES Adhesive Tape-Silicones MEDICATIONS insulin needles, DISPOSABLE, (PEN NEEDLE) 31 X 5/16 Ndle Use as directed. glimepiride 4 mg tablet Take by mouth 1/2 tab daily metFORMIN ER 500 mg 24 hr tablet Take by mouth two tablets every moning omega-3 acid ethyl esters (LOVAZA) 1 gram capsule Take 2 capsules by mouth twice daily. exenatide (BYETTA) 10 mcg/0.04 mL PnIj Inject twice daily before meals Alcohol Swabs PadM use as directed insulin glargine (LANTUS SOLOSTAR) 100 unit/mL (3 mL) SUBCUTANEOUS InPn Inject subcutaneously. 40 units at bedtime (may be more, as directed) blood sugar diagnostic (ACCU-CHEK CLARITZA) [facility] [place] strip CHECK BLOOD SUGARS 3-4 TIMES DAILY calcium carbonate 600 mg-cholecalciferol 200 units (CALCIUM 600 + D,3,) 600 mg(1,500mg) -200 unit ORAL Tab Take one(1) tablet daily. METOPROLOL TARTRATE 25 MG TAB Take one(1) tablet two(2) times daily. CPAP Use as directed. niacin sustained release 500 mg tablet Take 500 mg by mouth twice daily with meals. tamsulosin 0.4 mg Cp24 Take 0.4 mg by mouth. Hydrochlorothiazide 12.5 mg ORAL capsule Take 1 capsule by mouth once daily. lisinopril (ZESTRIL) 40 mg ORAL tablet Take 1 tablet by mouth once daily. aspirin(ECOTRIN LOW STRENGTH 81 MG TAB) Take one(1) tablet three times per week gabapentin(NEURONTIN 300 MG CAP) Takes 1-2 daily FAMILY HISTORY Problem Relation Age of Onset Diabetes Daughter Diabetes Son Heart Father Heart Brother Thyroid Daughter Thyroid Daughter Thyroid Son Diabetes Maternal Aunt Diabetes Maternal Aunt Social History Tobacco Use Smoking status: Former Smoker Smokeless tobacco: Never Used Substance Use Topics Alcohol use: No Drug use: Not on file Physical Exam Vitals reviewed. Constitutional: General: He is not in acute distress. Appearance: Normal appearance. HENT: Head: Normocephalic and atraumatic. Right Ear: External ear normal. Left Ear: External ear normal. Cardiovascular: Rate and Rhythm: Normal rate and regular rhythm. Heart sounds: Normal heart sounds. Pulmonary: Effort: Pulmonary effort is normal. No respiratory distress. Breath sounds: Normal breath sounds. No wheezing. Musculoskeletal: General: Normal range of motion. Cervical back: Normal range of motion and neck supple. Skin: General: Skin is warm and dry. Coloration: Skin is not jaundiced. Neurological: General: No focal deficit present. Mental Status: He is alert and oriented to person, place, and time. Mental status is at baseline. Psychiatric: Mood and Affect: Mood normal. Behavior: Behavior normal. Assessment and Plan ASSESSMENT/PLAN: 1. Close exposure to COVID-19 virus - ICD9: V01.79, ICD10: Z20.822 - Isolate as much as possible - Retest in 3-5 days - Retest if symptoms develop - ASYMPTOMATIC ELECTIVE COVID-19 Sadiq Massey TEACHING PROVIDER (Physician/PA/MINT MACHINE OPERATOR) NOTE OF PERSONAL INVOLVEMENT IN CARE: I have personally seen and examined the patient and performed the medical decision-making components. I have reviewed the Advanced Practice Registered Nurse (MINT MACHINE OPERATOR) Student's documentation and verified the findings in the note as written. Any additions or changes are noted in bold/italics. Signature: Alix Valle Date: 05/23/2021 Time: 3:32 PM documented in this encounter [facility] Fall risk assessment 12-21-2016 Note Date & Type Note Facility Fall risk assessment 05-14-2016 Note Date & Type Note Facility Evaluation note Note Date & Type Note Facility documented in this encounter [facility] Evaluation note Note Date & Type Note Facility documented in this encounter [facility] Health Concerns Infection Onset Date Last Indicated Resolved Time COVID-19 Rule-Out 05/23/2021 05/23/2021 Infection Onset Date Last Indicated Resolved Time COVID-19 Rule-Out 05/29/2021 05/29/2021 Summary Purpose Family History No Family History Records Found Advance Directives No Advanced Directives Records Found Additional Source Comments Source Comments (unrecognize d section and content) In the event this informatio n is protected by the Federal Confidentiality of Alcohol and Drug Abuse Patient Records regulations: The Federal rules restrict any use of the information to criminally investigate or prosecute any alcohol or drug abuse patient.[facility] the event this information is protected by the Federal Confidentiality of Alcohol and Drug Abuse Patient Records regulations: The Federal rules restrict any use of the information to criminally investigate or prosecute any alcohol or drug abuse patient.[facility] Reason for Visit (unrecogniz ed section and content) Reason Comments COVID exposure COVID exposure Care Teams (unrecognized sec tion and content) Visiting Housekeeper Relationship Specialty Start Date End Date Fredis Moon [address] [address] PCP - General Gerontology 05/23/21 (unrecognized sect ion and content) No Status Records Found INFORMATION SOURCE (unrecogn ized section and content) FOR RECORDS PERTAINING TO PATIENTS WHO ARE OR HAVE BEEN ENROLLED IN A CHEMICAL DEPENDENCY/SUBSTANCEABUSE PROGRAM, SOME INFORMATION MAY BE OMITTED. This clinical summary was aggregated from multiple sources. Caution should be exercised in using it in the provision of clinical care. This summary normalizes information from multiple sources, and as a consequence, information in this document may materially change the coding, format and clinical context of patient data. In addition, data may be omitted in some cases. CLINICAL DECISIONS SHOULD BE BASED ON THE PRIMARY CLINICAL RECORDS. [facility] [employer] [facility]. provides no warranty or guarantee of the accuracy or completeness of information in this document.
== END | disposition home or self-care (01) ==
LOC: LAB 15:00
PROVIDERS: PCP Family Medicine Geriatric Medicine; Referring Provider Nurse Practitioner Gerontology; Visit Provider Nurse Practitioner Gerontology
DX: I10 Essential (primary) hypertension (principal); R06.02 Shortness of breath
CPT/HCPCS: 36415; 80048; 83880

== ENCOUNTER → 2023-06-01 | Outpatient (CLI) | payer MEDICARE, OTHER, SELFPAY ==
[2023-06-01 15:38] LABS: Absolute Lymphocyte Count 1.29 X10^3/uL (0.83-4.51); Basophil# 0.06 X10^3/uL; Basophil% 0.8 % (0-1); Eosinophils% 1.3 % (0-5); Hematocrit 41.4 % (40-54); Hemoglobin 13.4 g/dL (13.0-16.5); Lymphocyte # 1.29 X10^3/ul (0.83-4.51); Lymphocyte % 17.4 % (19-41); Mean Corp Hgb Conc 32.4 g/dL (32-36); Mean Corpuscular Hgb 27.8 pg (27.0-32.0); Mean Corpuscular Volume 85.9 fL (80-94); Mean Platelet Vol. 9.3 fl (6.2-12.0); Monocyte# 0.94 X10^3/uL; Monocyte% 12.7 % (0-10); NRBC Flagged by Analyzer 0 % (0-5); Neutrophil # 4.96 X10^3/uL (2.7-7.7); Platelet Count 223 K/mm3 (150-450); RBC Distribution Width CV 14.3 % (11.6-14.6); RBC Distribution Width SD 44.3 fl (35.1-43.9); Red Blood Count 4.82 M/mm3 (4.6-6.2); White Blood Count 7.4 K/mm3 (4.4-11.0)
[2023-06-01 16:20] LABS: Vitamin D,25 Hydroxy 71.7 ng/mL
[2023-06-01 16:25] LABS: Hemoglobin A1c 7.6 % (3.8-5.6)
[2023-06-01 16:46] LABS: AST(SGOT) 15 U/L (15-37); Alanine Aminotransfer ALT/SGPT 18 U/L (16-61); Albumin, Serum 3.4 g/dL (3.2-5.0); Alkaline Phosphatase 88 U/L (45-117); Anion Gap 8 (5-15); BUN 27 mg/dL (7-18); BUN/Creat Ratio 24.8 RATIO (10-20); Chloride 108 mmol/L (98-107); Cholesterol 112 mg/dL (200); Creatinine, Serum 1.09 mg/dL (0.70-1.30); EST Glomerular Filtration Rate 69 mL/min (>60); Est Glom Filt Rate - Afr Amer 84 mL/min (>60); Globulin 3.4 g/dL (2.2-4.2); Glucose 121 mg/dL (74-106); High Density Lipoprotein 45 mg/dL; Potassium 4.4 mmol/L (3.5-5.1); Protein, Total 6.8 g/dL (6.4-8.2); Sodium Level 140 mmol/L (136-145); Thyroid Stim Hormone (TSH) 2.51 uIU/mL (0.358-3.74); Triglycerides 322 mg/dL; Very Low Density Lipoprotein 64 mg/dL (5-40)
== END | disposition home or self-care (01) ==
LOC: LAB 14:42
PROVIDERS: PCP Family Medicine Geriatric Medicine; Referring Provider Family Medicine Geriatric Medicine; Visit Provider Family Medicine Geriatric Medicine
DX: I10 Essential (primary) hypertension (principal); E11.65 Type 2 diabetes mellitus with hyperglycemia; E78.5 Hyperlipidemia, unspecified; E55.9 Vitamin D deficiency, unspecified
CPT/HCPCS: 36415; 80053; 80061; 82306; 83036; 84403; 84443; 85025

== ENCOUNTER → 2023-06-02 | Outpatient (CLI) | payer MEDICARE, OTHER, SELFPAY ==
--- NOTE | 2023-06-02 15:03 | RAD_ITS ---
STUDY: X-RAY - RIGHT KNEE REASON FOR EXAM: Male, 83 years old. OSTEOARTHRITIS OF RIGHT KNEE TECHNIQUE: 4 view(s) of the knee. COMPARISON: None. FINDINGS: Normal visualized distal femur. Normal visualized proximal tibia and fibula. Normal proximal tibiofibular articulation. There is severe degenerative arthrosis of the medial femorotibial compartment with severe joint space narrowing. There is mild degenerative arthrosis of the lateral femorotibial compartment. There is mild degenerative arthrosis of the patellofemoral articulation. The soft tissue structures are unremarkable. RAD/Knee 4 or More Views IMPRESSION: Degenerative arthrosis. Electronically Signed: Theo Acevedo MD at 21:56 EDT ,
== END | disposition home or self-care (01) ==
LOC: RAD 15:01
PROVIDERS: PCP Family Medicine Geriatric Medicine; Referring Provider Family Medicine Geriatric Medicine; Visit Provider Family Medicine Geriatric Medicine
DX: M17.11 Unilateral primary osteoarthritis, right knee (principal)
CPT/HCPCS: 73564

== ENCOUNTER 2023-08-24 09:00 | Outpatient (RCR) | payer MEDICARE, OTHER, SELFPAY ==
--- NOTE | 2023-07-08 10:37 | HP.PTEVAL ---
Patient's Visit Information Visit Information Visit Information: FARHANA CAMERON is a 83 year old M referred to Physical Therapy by Dr. Lalit Vernon DO with a diagnosis of Other instability right knee, M25.361. Date of Evaluation: 07/08/23 Physical Therapist: Cameron Daniels Visit Plan Frequency: 2x /Week Duration: 6 Weeks Plan: Continue with improving LE strength and balance. Subjective Subjective: Pt. is a 83 y.o. male who has been having right knee pain and instability for about four or five months. Pt. PLOF includes use of SPC for a couple of years and has a history of neuropathy and has AFO's for both legs. Pt. had x-ray which showed osteoarthritis. He has had about two falls in the last six months. He has numbness and tingling in both of his legs. Pt. has difficulty with walking, standing for long periods of time, walking on uneven ground, ascending/descending stairs, squatting, getting up from a chair, getting into/out of the car, housework, and yard work. 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 His goal with physical therapy is to improve his balance and feel more comfortable with walking. He has had previous physical therapy for his balance mostly in the past. Pt. rates right knee pain at 1/10 currently, at worst 5/10, at best 0/10 and describes the pain as achy. Pt. is currently on Carbidopa. His PMH includes irregular heart beat, prostate cancer, type II diabetic, former smoker quit over 40 years ago, Parkinsonism, neuropathy, tonsillectomy, pilonal cyst, fistula, gall bladder removed, and prostectomy. Pt. lives with his in a one story home with two steps to enter with no handrail. His hobbies include reading, music, and watching tv. Objective Objective: Left knee AROM flexion 117 degrees, extension -2 degrees Right knee AROM flexion 118 degrees, extension -3 degrees Left hip strength flexion 5/5, abduction 4+/5, adduction 5/5, extension 4+/5, knee flexion 5/5, knee extension 5/5, ankle DF 2/5, ankle PF 3/5 Right hip strength flexion 4+/5, abduction 4/5, adduction 5/5, extension 4+/5, knee flexion 5/5, knee extension 4+/5, ankle DF 2/5, ankle PF 3/5 Sensation- Vague sensation over bilateral lower extremities 30 sec sit to stand- x 8 with no arm assist Tandem stance left 1 sec, right 1 sec SLS left unable and right unable Araya score- 15/56 Gait- Pt. ambulates with SPC and steppage gait pattern with bilateral lower extremities. Pt. has bilateral AFO's. Stairs- Pt. ascends/descends stairs with step to gait pattern, unilateral handrail, and cane. Balance/Special Test Scores Lower Extremity Functional Score: 29 Goals Goal 1:: Pt. will be independent with home exercise program. Goal Time Frame: 4-6 Weeks Goal 2:: Pt. will be able to complete at least 10 sit to stands in 30 secs with no arm assist in order to improve mobility. Goal Time Frame: 4-6 Weeks Goal 3:: Pt. will improve Araya Balance score > 20/56 in order to improve stability and balance. Goal Time Frame: 4-6 Weeks Goal 4:: Pt. will be able to walk at least 10 minutes with least restrictive device and no rest break in order to improve endurance. Goal Time Frame: 4-6 Weeks Goal 5:: Pt. will improve tandem stance > 15 secs in order to improve stability and balance. Goal Time Frame: 4-6 Weeks Goal 6:: Pt. will improve LEFS score < 60% disability in order to improve ADL's. Goal Time Frame: 4-6 Weeks Rehabilitation Potential Physical Therapy Diagnosis: LE weakness, difficulty walking, balance impairment, and pain Rehabilitation Potential: Good Anticipated Interventions Patient/Client Instruction: Educate patient on: Condition and Plan of Care For the Purpose of:: To improve ability to perform ADL's, To improve performance and independence with ADL's, To increase flexibility/ROM, To assume or resume ADL's, To improve safety and To improve tolerance to ADL's Therapeutic Exercise to Include: Strength training, Endurance training, Balance training and Gait and locomotor training Comment: Continue with improving LE strength and balance. For the Purpose of:: To improve ability to perform ADL's, To improve performance and independence with ADL's, To improve balance, To improve safety with gait, To assume or resume ADL's and To improve tolerance to ADL's Functional Training to Include: ADL Training and Gait training For the Purpose of:: To improve ability to perform ADL's, To improve performance and independence with ADL's, To improve gait and locomotor functions, To improve balance, To improve safety with gait, To assume or resume ADL's, To improve safety and To improve tolerance to ADL's Assistive Devices: Cane and Wheeled walker Prosthetic, Protective Equipment: Braces For the Purpose of:: To improve ability to perform ADL's, To improve performance and independence with ADL's, To improve balance, To assume or resume ADL's, To improve safety and To improve tolerance to ADL's Text: Thank you for the opportunity to evaluate your patient. For Medicare and Medicare HMO plans, please review the plan of care and approve it. It will need to be FAXED BACK to us at [phone] for Medicare purposes. For Medicare only, by signing this I certify the plan of care. Please let me know if there are questions or concerns regarding this plan of care. Physician Signature: Date:
--- NOTE | 2023-08-24 15:00 | HP.PTDCSUM ---
Discharge Summary D/C summary: It has been my pleasure to treat FARHANA CAMERON referred by Dr. 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 Discharge Date: 08/24/23 Please see the following information for a summary of their discharge status. Subjective Subjective: PATIENT REPORTS HIS KNEE IS DOING GOOD. HE HASN'T BEEN HAVING PAIN AND HE IS DOING HIS HEP. NO FALLS SINCE LAST VISIT. Overall Improvement % Improvement: 99 Objective Objective/Function: PATIENTS KNEE PAIN IS GONE AND HE REPORTS THAT IS WHY HE CAME TO PT THIS TIME. HE REPORTS HE HAS HAD PT IN THE PAST FOR BALANCE AND HE HAS DONE WHAT HE CAN FOR THAT. PATIENT DID LOSE HIS BALANCE SEVERAL TIMES WALKING INTO AND OUT OF PT TODAY WITH HIS CANE BUT REGAINED IT INDEP'LY. HE STATED THIS BEING UNUSUAL AND HE RELATED HIS LOB TO HAVING DIFFERENT ANKLE BRACES ON. HE WAS OPEN TO EDUCATION ABOUT BENEFITS OF ROLLATOR USE TODAY FOR SAFETY AND HE HAS A ROLLATOR. 30 SEC STS WITH ONE UE ON CHAIR AND LIGHT TOUCH WITH ONE UE ON COUNTER FOR BALANCE DUE TO DECREASED LE PROPRIOCEPTION = 9 LEFS FILLED OUT BASED ON KNEE PAIN BUT HAS LIMITATIONS DUE TO BALANCE. Goals Goal 1:: Pt. will be independent with home exercise program. Goal Progress: Goal Met Goal 2:: Pt. will be able to complete at least 10 sit to stands in 30 secs with no arm assist in order to improve mobility. Goal Progress: Progressing Goal 3:: Pt. will improve Araay Balance score > 20/56 in order to improve stability and balance. Goal 4:: Pt. will be able to walk at least 10 minutes with least restrictive device and no rest break in order to improve endurance. Goal Progress: Goal Met Goal 5:: Pt. will improve tandem stance > 15 secs in order to improve stability and balance. Goal 6:: Pt. will improve LEFS score < 60% disability in order to improve ADL's. Goal Progress: Goal Met Plan Plan: D/C TO HEP. PATIENT AGREEABLE. D/C Information d/c sentence: If there are questions or concerns regarding this patient's physical therapy, please feel free to call me at [phone]. Thank you for the referral of this patient. Sincerely, Torri Morris, PT, Cert MDT Balance/Gait/Functional tests Balance/Special Test Scores Lower Extremity Functional Score: 59 Improvement % Improvement: 99
== END 2023-08-24 19:00 | disposition home or self-care (01) ==
LOC: PT 09:00
PROVIDERS: PCP Family Medicine Geriatric Medicine; Referring Provider Orthopaedic Surgery; Visit Provider Orthopaedic Surgery
DX: M25.361 Other instability, right knee (principal); M17.11 Unilateral primary osteoarthritis, right knee
CPT/HCPCS: 97110; 97162; 97530

== ENCOUNTER → 2023-09-07 | Outpatient (CLI) | payer MEDICARE, OTHER, SELFPAY ==
[2023-09-07 15:25] LABS: Absolute Lymphocyte Count 1.27 X10^3/uL (0.83-4.51); Absolute Neutrophil Count 4.6 X10^3/uL (2.0-7.7); Basophil# 0.05 X10^3/uL; Basophil% 0.7 % (0-1); Eosinophils% 1.4 % (0-5); Hematocrit 42.8 % (40-54); Hemoglobin 13.8 g/dL (13.0-16.5); Lymphocyte # 1.27 X10^3/ul (0.83-4.51); Lymphocyte % 18.4 % (19-41); Mean Corp Hgb Conc 32.2 g/dL (32-36); Mean Corpuscular Hgb 27.3 pg (27.0-32.0); Mean Corpuscular Volume 84.8 fL (80-94); Monocyte# 0.79 X10^3/uL; Monocyte% 11.4 % (0-10); NRBC Flagged by Analyzer 0 % (0-5); Neutrophil # 4.61 X10^3/uL (2.7-7.7); Neutrophil % 66.8 % (47-70); Platelet Count 240 K/mm3 (150-450); RBC Distribution Width CV 14.2 % (11.6-14.6); RBC Distribution Width SD 43.6 fl (35.1-43.9); Red Blood Count 5.05 M/mm3 (4.6-6.2); White Blood Count 6.9 K/mm3 (4.4-11.0)
[2023-09-07 16:16] LABS: Hemoglobin A1c 6.7 % (3.8-5.6)
[2023-09-07 16:24] LABS: Vitamin D,25 Hydroxy 59.5 ng/mL
[2023-09-07 16:36] LABS: ALB/GLOB Ratio 0.9 RATIO (0.9-2.4); AST(SGOT) 16 U/L (15-37); Alanine Aminotransfer ALT/SGPT 21 U/L (16-61); Albumin, Serum 3.4 g/dL (3.2-5.0); Alkaline Phosphatase 101 U/L (45-117); Anion Gap 7 (5-15); BUN 32 mg/dL (7-18); BUN/Creat Ratio 27.8 RATIO (10-20); Calcium,Total 9.1 mg/dL (8.5-10.1); Chloride 105 mmol/L (98-107); Cholesterol 113 mg/dL (200); Creatinine, Serum 1.15 mg/dL (0.70-1.30); EST Glomerular Filtration Rate 65 mL/min (>60); Est Glom Filt Rate - Afr Amer 78 mL/min (>60); Globulin 3.7 g/dL (2.2-4.2); Glucose 145 mg/dL (74-106); High Density Lipoprotein 39 mg/dL; PSA,Total - Annual Screen 0.02 ng/mL (0.00-4.00); Potassium 4.6 mmol/L (3.5-5.1); Protein, Total 7.1 g/dL (6.4-8.2); Sodium Level 137 mmol/L (136-145); Thyroid Stim Hormone (TSH) 2.22 uIU/mL (0.358-3.74); Triglycerides 326 mg/dL; Very Low Density Lipoprotein 65 mg/dL (5-40)
== END | disposition home or self-care (01) ==
PROVIDERS: PCP Family Medicine Geriatric Medicine; Referring Provider Family Medicine Geriatric Medicine; Visit Provider Family Medicine Geriatric Medicine
DX: E78.5 Hyperlipidemia, unspecified (principal); E11.65 Type 2 diabetes mellitus with hyperglycemia; I10 Essential (primary) hypertension; E55.9 Vitamin D deficiency, unspecified; Z12.5 Encounter for screening for malignant neoplasm of prostate
CPT/HCPCS: 36415; 80053; 80061; 82306; 83036; 84153; 84403; 84443; 85025; G0103

== ENCOUNTER → 2023-12-07 | Outpatient (CLI) | payer MEDICARE, OTHER, SELFPAY ==
[2023-12-07 10:32] LABS: Absolute Lymphocyte Count 1.26 X10^3/uL (0.83-4.51); Absolute Neutrophil Count 4.1 X10^3/uL (2.0-7.7); Basophil# 0.05 X10^3/uL; Basophil% 0.8 % (0-1); Eosinophils% 1.6 % (0-5); Hematocrit 41.2 % (40-54); Hemoglobin 13.1 g/dL (13.0-16.5); Lymphocyte # 1.26 X10^3/ul (0.83-4.51); Lymphocyte % 19.6 % (19-41); Mean Corp Hgb Conc 31.8 g/dL (32-36); Mean Corpuscular Hgb 27.5 pg (27.0-32.0); Mean Corpuscular Volume 86.4 fL (80-94); Mean Platelet Vol. 9.9 fl (6.2-12.0); Monocyte# 0.78 X10^3/uL; Monocyte% 12.1 % (0-10); NRBC Flagged by Analyzer 0 % (0-5); Neutrophil # 4.13 X10^3/uL (2.7-7.7); Neutrophil % 64.3 % (47-70); Platelet Count 210 K/mm3 (150-450); RBC Distribution Width CV 14.5 % (11.6-14.6); RBC Distribution Width SD 45.6 fl (35.1-43.9); Red Blood Count 4.77 M/mm3 (4.6-6.2); White Blood Count 6.4 K/mm3 (4.4-11.0)
[2023-12-07 11:15] LABS: AST(SGOT) 13 U/L (15-37); Alanine Aminotransfer ALT/SGPT 9 U/L (16-61); Albumin, Serum 3.3 g/dL (3.2-5.0); Alkaline Phosphatase 101 U/L (45-117); Anion Gap 9 (5-15); BUN 23 mg/dL (7-18); BUN/Creat Ratio 22.5 RATIO (10-20); Calcium,Total 9.1 mg/dL (8.5-10.1); Chloride 104 mmol/L (98-107); Cholesterol 115 mg/dL (200); Creatinine, Serum 1.02 mg/dL (0.70-1.30); EST Glomerular Filtration Rate 74 mL/min (>60); Est Glom Filt Rate - Afr Amer 90 mL/min (>60); Globulin 3.4 g/dL (2.2-4.2); Glucose 210 mg/dL (74-106); High Density Lipoprotein 47 mg/dL; Potassium 4.5 mmol/L (3.5-5.1); Protein, Total 6.7 g/dL (6.4-8.2); Sodium Level 137 mmol/L (136-145); Triglycerides 227 mg/dL; Very Low Density Lipoprotein 45 mg/dL (5-40)
[2023-12-17 15:09] LABS: Testosterone, Total 41 ng/dL (264-916)
== END | disposition home or self-care (01) ==
LOC: LAB 09:27
PROVIDERS: PCP Family Medicine Geriatric Medicine; Referring Provider Family Medicine Geriatric Medicine; Visit Provider Family Medicine Geriatric Medicine
DX: E29.1 Testicular hypofunction (principal); E11.9 Type 2 diabetes mellitus without complications; R53.83 Other fatigue; I10 Essential (primary) hypertension; E55.9 Vitamin D deficiency, unspecified
CPT/HCPCS: 36415; 80053; 80061; 82306; 83036; 84403; 84443; 85025

== ENCOUNTER → 2023-12-13 | Outpatient (CLI) | payer MEDICARE, OTHER, SELFPAY ==
--- NOTE | 2023-12-13 10:44 | US_ITS ---
INDICATION: Benign lipomatous neoplasm of skin and subcutaneous tissue of rig EXAMINATION: Right upper extremity duplex venous ultrasound. HISTORY: Benign lipomatous neoplasm of skin. COMPARISON: No relevant prior comparison study available TECHNIQUE: Routine and color duplex imaging with spectral analysis. FINDINGS: There is subcutaneous edema. No discrete fluid collection is visualized. No solid masses are seen. US/Ext Non Vasc Limited/Soft Tiss IMPRESSION: Subcutaneous edema. No lipoma identified. Electronically Signed: Sonja Olivia MD at 15:22 EDT ,
== END | disposition home or self-care (01) ==
PROVIDERS: PCP Family Medicine Geriatric Medicine; Referring Provider Family Medicine Geriatric Medicine; Visit Provider Family Medicine Geriatric Medicine
DX: D17.21 Benign lipomatous neoplasm of skin and subcutaneous tissue of right arm (principal)
CPT/HCPCS: 76882

== ENCOUNTER → 2024-01-21 | Outpatient (CLI) | payer MEDICARE, OTHER, SELFPAY ==
[2024-01-21 10:02] LABS: PSA,Total- Diagnostic < 0.01 ng/mL (0.0-4.0)
== END | disposition home or self-care (01) ==
PROVIDERS: PCP Family Medicine Geriatric Medicine; Referring Provider Urology; Visit Provider Urology
DX: C61 Malignant neoplasm of prostate (principal)
CPT/HCPCS: 36415; 84153

== ENCOUNTER → 2024-03-07 | Outpatient (CLI) | payer MEDICARE, OTHER, SELFPAY ==
[2024-03-07 15:33] LABS: Absolute Lymphocyte Count 1.25 X10^3/uL (0.83-4.51); Absolute Neutrophil Count 4.8 X10^3/uL (2.0-7.7); Basophil# 0.05 X10^3/uL; Basophil% 0.7 % (0-1); Eosinophils% 1.4 % (0-5); Hematocrit 40.6 % (40-54); Lymphocyte # 1.25 X10^3/ul (0.83-4.51); Lymphocyte % 17.5 % (19-41); Mean Corpuscular Hgb 27.5 pg (27.0-32.0); Mean Platelet Vol. 9.2 fl (6.2-12.0); Monocyte# 0.89 X10^3/uL; Monocyte% 12.5 % (0-10); NRBC Flagged by Analyzer 0 % (0-5); Neutrophil # 4.77 X10^3/uL (2.7-7.7); Neutrophil % 66.8 % (47-70); Platelet Count 198 K/mm3 (150-450); RBC Distribution Width CV 14.1 % (11.6-14.6); RBC Distribution Width SD 44.3 fl (35.1-43.9); Red Blood Count 4.72 M/mm3 (4.6-6.2); White Blood Count 7.1 K/mm3 (4.4-11.0)
[2024-03-07 15:54] LABS: Hemoglobin A1c 7.8 % (3.8-5.6)
[2024-03-07 16:27] LABS: ALB/GLOB Ratio 0.9 RATIO (0.9-2.4); AST(SGOT) 15 U/L (15-37); Alanine Aminotransfer ALT/SGPT 18 U/L (16-61); Albumin, Serum 3.3 g/dL (3.2-5.0); Alkaline Phosphatase 103 U/L (45-117); Anion Gap 5 (5-15); BUN 25 mg/dL (7-18); BUN/Creat Ratio 25.1 RATIO (10-20); Calcium,Total 8.8 mg/dL (8.5-10.1); Chloride 107 mmol/L (98-107); Cholesterol 113 mg/dL (200); EST Glomerular Filtration Rate 77 mL/min (>60); Est Glom Filt Rate - Afr Amer 93 mL/min (>60); Globulin 3.6 g/dL (2.2-4.2); Glucose 141 mg/dL (74-106); High Density Lipoprotein 45 mg/dL; Potassium 4.9 mmol/L (3.5-5.1); Protein, Total 6.9 g/dL (6.4-8.2); Sodium Level 142 mmol/L (136-145); Triglycerides 362 mg/dL; Very Low Density Lipoprotein 72 mg/dL (5-40)
[2024-03-07 17:45] LABS: Vitamin D,25 Hydroxy 40.2 ng/mL
[2024-03-12 06:37] LABS: Testosterone Free 1.1 pg/mL (6.6-18.1)
== END | disposition home or self-care (01) ==
LOC: POLAB3 15:22
PROVIDERS: PCP Family Medicine Geriatric Medicine; Visit Provider Family Medicine Geriatric Medicine
DX: I10 Essential (primary) hypertension (principal); E11.65 Type 2 diabetes mellitus with hyperglycemia; R53.83 Other fatigue; E78.5 Hyperlipidemia, unspecified; E29.1 Testicular hypofunction; E55.9 Vitamin D deficiency, unspecified
CPT/HCPCS: 36415; 80053; 80061; 82306; 83036; 84402; 84443; 85025

== ENCOUNTER → 2024-04-17 | Outpatient (CLI) | payer MEDICARE, OTHER, SELFPAY ==
--- NOTE | 2024-04-17 06:53 | ECHOD_ITS ---
Reason For Study Reason For Study: CAD/ASHD Procedure This was a 2D Doppler, Color Flow transthoracic echocardiogram. Exam performed in department. Left Ventricle Normal LV size. Mild concentric left ventricular hypertrophy. The left ventricular ejection fraction is 65 %. Stage 1 diastolic dysfunction. Right Ventricle Normal right ventricle. Atria The left atrium is mildly enlarged. Normal right atrium. Mitral Valve Moderate mitral annular calcification. Mild-Moderate (1-2+) mitral valve insufficiency. Tricuspid Valve Trivial tricuspid valve insufficiency. Unable to estimate RV systolic pressure due to insufficient tricuspid regurgitant envelope. Aortic Valve Moderately calcified right coronary cusp of the aortic valve. Mild aortic valve stenosis. Pulmonic Valve Trivial pulmonic valve insufficiency. Great Vessels Normal sized aortic root. Pericardium/Pleural No pericardial effusion. MMode/2D Measurements & Calculations LVIDd: 5.1 cm IVSd: 1.0 cm LVOT diam: 2.0 cm LVIDs: 3.7 cm LVPWd: 1.3 cm LVOT area: 3.0 cm2 RVDd: 3.5 cm FS: 28.2 % Ao root diam: 3.5 cm LAV(MOD-bp): 51.6 ml LVAd ap4: 30.7 cm2 LA dimension: 4.4 cm LAV(MOD-bp) Indexed: 25.6 ml/m2 LVLd ap4: 8.2 cm LAV(MOD-sp2): 51.9 ml EDV(MOD-sp4): 92.7 ml LAV(MOD-sp4): 49.4 ml EDV(sp4-el): 97.3 ml LVAs ap4: 15.2 cm2 LVLs ap4: 7.0 cm ESV(MOD-sp4): 28.5 ml ESV(sp4-el): 27.8 ml EF(MOD-sp4): 69.2 % EF(sp4-el): 71.5 % SV(MOD-sp4): 64.2 ml SV(sp4-el): 69.5 ml LA A4 area: 18.4 cm2 SI(MOD-sp4): 31.9 ml/m2 LA dimension(2D): 4.6 cm RA A4 area: 15.0 cm2 Time Measurements MV dec time: 0.30 sec Doppler Measurements & Calculations MV E max khang: 85.5 cm/sec Lat Peak E' Khang: 7.4 cm/sec Med Peak E' Khang: 6.2 cm/sec MV A max khang: 120.9 cm/sec E/E' lat: 11.5 E/E' med: 13.7 MV E/A: 0.71 MV V2 max: 116.2 cm/sec Ao V2 max: 155.7 cm/sec MV max P.4 mmHg MV dec slope: 286.8 cm/sec2 Ao max P.7 mmHg MV V2 mean: 65.8 cm/sec Ao V2 mean: 105.3 cm/sec MV mean P.0 mmHg Ao mean P.1 mmHg MV V2 VTI: 45.3 cm Ao V2 VTI: 42.4 cm AV (velocity ratio): 0.59 MVA(VTI): 1.6 cm2 LLOYD(I,D): 1.8 cm2 LLOYD(V,D): 2.1 cm2 LV V1 max: 110.5 cm/sec SV(LVOT): 74.6 ml PA V2 max: 136.3 cm/sec LV V1 max P.9 mmHg PA V2 mean: 91.9 cm/sec LV V1 mean P.8 mmHg LV V1 mean: 78.3 cm/sec LV V1 VTI: 24.8 cm ECHO/Echo Complete Interpretation Summary Mild concentric left ventricular hypertrophy. The left ventricular ejection fraction is 65 %. Stage 1 diastolic dysfunction. The left atrium is mildly enlarged. Moderate mitral annular calcification. Mild-Moderate (1-2+) mitral valve insufficiency. Moderately calcified right coronary cusp of the aortic valve. Mild aortic valve stenosis. Ordering Physician: Samson Orellana Referring Physician: Samson Orellana Performed By: Sully Delgadillo RCS
--- NOTE | 2024-04-17 09:14 | CDU_ITS ---
Reason For Study Reason For Study: Carotid Artery Disease Rt. Velocities/BP Lt. Velocities/BP Prox CCA 115/8 cm/sec. Prox CCA 126/13 cm/sec. Mid CCA 134/12 cm/sec. Mid CCA 103/12 cm/sec. Dist CCA 77/11 cm/sec. Dist CCA 87/11 cm/sec. Prox ICA 116/14 cm/sec. Prox ICA 70/13 cm/sec. Mid ICA 67/11 cm/sec. Mid ICA 69/17 cm/sec. Dist ICA 83/15 cm/sec. Dist ICA 84/22 cm/sec. Rt. ICA/CCA = 0.9. Lt. ICA/CCA = 0.8. Prox ECA 159/0 cm/sec. Prox ECA 128/0 cm/sec. Rt. Vert. 37/9 cm/sec. Lt. Vert. 60/15 cm/sec. Right Extracranial There is heterogeneous, irregular atherosclerotic plaque noted in the right common carotid artery. There is heterogeneous, irregular atherosclerotic plaque noted in the right internal carotid artery. There is heterogeneous, irregular atherosclerotic plaque noted in the right external carotid artery. Antegrade flow is noted in the right vertebral artery. Left Extracranial There is heterogeneous, irregular atherosclerotic plaque noted in the left common carotid artery. There is heterogeneous, irregular atherosclerotic plaque noted in the left internal carotid artery. There is heterogeneous, irregular atherosclerotic plaque noted in the left external carotid artery. Antegrade flow is noted in the left vertebral artery. Procedure Carotid Duplex [id number]. This is a Carotid Duplex examination using B-mode, color flow and specral Doppler. Exam performed in department. VL/Carotid Duplex Ultrasound Interpretation Summary Mild (<50%) stenosis right extracranial internal carotid. Mild (<50%) stenosis left extracranial internal carotid. Patent and antegrade vertebrals bilaterally. Ordering Physician: Samson Orellana Referring Physician: Fredis Moon Chi Performed By: Catalina Regalado, MARIELA, RVT
--- NOTE | 2024-04-20 12:33 | STRESSREP_ITS ---
Stress Test Report Date: 04/17/2024 Procedure: Pharmacologic stress nuclear imaging study Indications: Chest pain Consent: Per the patient Procedure: The patient underwent pharmacologic (Regadenoson 0.4mg ) evaluation with a peak heart rate of 76 beats per minute (55%predicted maximal heart rate) and a peak blood pressure of 118 over mmHg. The baseline ECG demonstrated sinus rhythm with nonspecific intraventricular conduction delay. The peak pharmacologic ECG demonstrated no ischemic changes. There were no cardiac dysrhythmias pretest, during pharmacologic infusion, or recovery. There was no complaint of chest discomfort during pharmacologic infusion or recovery. The patient was injected with 13.9 millicuries of technetium 99m Cardiolite and subsequently rest SPECT Cardiolite nuclear imaging was obtained in the horizontal long, vertical long, and short axis views. The patient underwent pharmacologic (Regadenoson) evaluation. The patient was injected with 43.6 millicuries of technetium 99m Cardiolite and subsequently stress SPECT Cardiolite nuclear imaging was obtained in the horizontal long, vertical long, and short axis views. A gated Cardiolite study at peak stress was obtained. The examination was stopped secondary to completion of protocol. Rest and stress SPECT Cardiolite nuclear imaging status post realignment, n ormalization, and attenuation correction demonstrate a moderate size reversible perfusion defect of the lateral wall of mild intensity. There is end systolic thickening and brightening. The gated Cardiolite study demonstrates myocardial thickening and inward wall motion. The reported LVEF is 63%. Impression: 1. Pharmacologic (Regadenoson) evaluation 2. Peak pharmacologic ECG with no ischemic changes. 3. There were no cardiac dysrhythmias pretest, during pharmacologic infusion, or recovery. 5. Moderate size reversible perfusion defect of the lateral wall suggestive of ischemia. 6. The gated Cardiolite study reports an LVEF of 63%. This note was generated with [employer] software. It may contain incorrect words, spelling, and punctuation that were not noted in checking the note before signing.
== END | disposition home or self-care (01) ==
LOC: CVS 06:44
PROVIDERS: PCP Family Medicine Geriatric Medicine; Referring Provider Internal Medicine Cardiovascular Disease; Visit Provider Internal Medicine Cardiovascular Disease
DX: I25.10 Atherosclerotic heart disease of native coronary artery without angina pectoris (principal); I47.20 Ventricular tachycardia, unspecified; E11.9 Type 2 diabetes mellitus without complications; I10 Essential (primary) hypertension; E78.2 Mixed hyperlipidemia; I49.1 Atrial premature depolarization; I49.3 Ventricular premature depolarization; R00.1 Bradycardia, unspecified; R55 Syncope and collapse
CPT/HCPCS: 78452; 93017; 93306; 93880; A9500; A4216; J2785

== ENCOUNTER 2024-04-24 08:24 | Day surgery (SDC) | payer MEDICARE, OTHER, SELFPAY ==
--- NOTE | 2024-04-21 13:49 | HP.PCM_ITS ---
History and Physical Date of Admission: 04/24/24 This gentleman with previous history of minimal coronary artery disease diagnosed on coronary angiography in 2001, mild carotid artery disease, dyslipidemia diabetes mellitus and parkinsonism. Per patient, last January, he has had some burning sensation climbing stairs along with shortness of breath. Since the new year, no symptoms. Denies orthopnea. No PND. Occasional ankle edema for which he wears compression stockings. Please note that the patient has bilateral foot drop as well. He underwent an echocardiogram in March 2024 which demonstrated an ejection fraction 65%. Stage I diastolic dysfunction. Mild to moderate mitral valve insufficiency. Mild aortic valve stenosis. Pharmacologic nuclear stress test in March 2024 demonstrated a moderate size reversible perfusion defect in the lateral wall suggestive of ischemia. He is here today to undergo a diagnostic heart catheterization for further evaluation. Medical History (Updated 03/23/24 @ 13:[address] Samson Orellana MD) Carotid artery disease Malignant neoplasm of prostate Mixed hyperlipidemia Hepatitis B GERD (gastroesophageal reflux disease) Neuropathy Essential hypertension Syncope Wide-complex tachycardia Premature ventricular contraction Premature atrial contractions Sinus bradycardia Atherosclerotic heart disease of [place] coronary artery without angina pectoris Diabetes type 2, controlled Normal pressure hydrocephalus Obesity Asymptomatic PVCs Dyslipidemia HTN (hypertension) Sleep apnea, obstructive Surgical History History of prostatectomy History of cataract surgery History of cholecystectomy History of tonsillectomy Family History Father COPD (chronic obstructive pulmonary disease) CAD (coronary artery disease) Mother CVA (cerebral vascular accident) Brother CAD (coronary artery disease) Myocardial infarction, Onset Age: 61 Social History Smoking Status: Never smoker ROS Const Const: Negative for fatigue, weakness, headache(s) or weight gain ENT ENT: Negative for headache(s), dizziness, Nosebleed/epistaxis or balance problems Cardio Chest Pain: No Palpitations: No Edema: None Muscle aches with walking: None Resp Respiratory: Negative for SOB with activity, SOB at rest or SOB orthopnea\SOB lying down GI GI: Negative nausea, vomiting or heartburn Musc Musc: Negative for muscle aches/ myalgia, muscle weakness, joint pain or balance problems Neuro Neuro: Negative for dizziness, lightheadedness, near syncope, syncope, headache(s) or weakness Endo Endo: Negative for fatigue Cardiology Exam Const Appearance: comfortable and no acute distress Nutritional Appearance: well nourished Neck Neck: no JVD Carotids: Negative bruit Chest Auscultation: Bilateral: Clear to Auscultation Cardio Rate: regular rate Rhythm: regular rhythm Heart sounds: S1 normal and S2 normal 2/6 systolic murmur at base Neuro General: patient alert, patient awake and patient oriented x3 Extremities Lower Extremity Edema: None: Bilateral Bilateral lower extremity braces for foot drop. Assessment & Plan Assessment/Plan (1) Atherosclerotic heart disease of [place] coronary artery without angina pectoris: QUALIFIERS: [place] vs. transplanted heart: [place] heart Qualified Code(s): I25.10 - Atherosclerotic heart disease of [place] coronary artery without angina pectoris (2) Abnormal cardiovascular stress test: (3) Chest pain: PLAN: Plan Patient is agreeable to undergo a diagnostic heart catheterization for further evaluation. Based on findings follow-up will be decided.
--- NOTE | 2024-04-21 14:10 | RAD_ITS ---
PROCEDURE: CHEST PA AND LATERAL REASON FOR EXAM: Abnormal stress TECHNIQUE: Frontal and lateral views of the chest. COMPARISON: None. FINDINGS: The lungs are clear. Pulmonary vascularity appears within limits. No pleural effusion. The cardiac and mediastinal contours appear within limits. Atherosclerotic change at the aortic arch. Visualized osseous structures appear within limits. RAD/Chest PA and Lateral IMPRESSION: No evidence of acute disease. Reading Location: [id number]
[2024-04-21 14:18] LABS: Absolute Lymphocyte Count 1.33 X10^3/uL (0.83-4.51); Absolute Neutrophil Count 5.7 X10^3/uL (2.0-7.7); Basophil# 0.06 X10^3/uL; Basophil% 0.7 % (0-1); Eosinophil# 0.08 X10^3/uL; Hematocrit 40.8 % (40-54); Hemoglobin 13.3 g/dL (13.0-16.5); Lymphocyte # 1.33 X10^3/ul (0.83-4.51); Lymphocyte % 16.4 % (19-41); Mean Corp Hgb Conc 32.6 g/dL (32-36); Mean Corpuscular Hgb 27.8 pg (27.0-32.0); Mean Corpuscular Volume 85.2 fL (80-94); Mean Platelet Vol. 9.2 fl (6.2-12.0); Monocyte% 11.1 % (0-10); NRBC Flagged by Analyzer 0 % (0-5); Neutrophil # 5.68 X10^3/uL (2.7-7.7); Neutrophil % 69.9 % (47-70); Platelet Count 195 K/mm3 (150-450); RBC Distribution Width CV 14.1 % (11.6-14.6); RBC Distribution Width SD 43.5 fl (35.1-43.9); Red Blood Count 4.79 M/mm3 (4.6-6.2); White Blood Count 8.1 K/mm3 (4.4-11.0)
[2024-04-21 15:36] LABS: Anion Gap 14 (5-15); BUN 24 mg/dL (4-19); BUN/Creat Ratio 24.5 RATIO (10-20); Calcium 9.3 mg/dL (7.6-11.0); Carbon Dioxide 21.9 mmol/L (22.0-29.0); Chloride 104 mmol/L (96-108); Creatinine, Serum 0.96 mg/dL (0.70-1.20); EST Glomerular Filtration Rate 79 (>60); Glucose 149 mg/dL (70-99); Potassium 4.6 mmol/L (3.3-5.1); Sodium Level 139 mmol/L (133-145)
[2024-04-21 18:13] LABS: International Normalized Ratio 1.1; Prothrombin Time (Protime)PT. 14.2 SECONDS (11.7-14.9)
[2024-04-24 08:49] VITALS: BMI 33.2
--- NOTE | 2024-04-24 11:29 | CL.D_ITS ---
Patient Name: Joaquin CAMERON Study Date: 04/24/2024 Performing: Samson Orellana MD Ht: 66 inches 167.64 cm : 1940 Wt: lbs kg Age: 84 Gender: male BSA: PROCEDURE(S) PERFORMED [id number])LHC/COR CLINICAL PROFILE AND INDICATIONS Indications: Suspected CAD Heart Failure: None Stress/Imaging Stress Test w/SPECT MPI: Yes Result: Positive Intermediate RiskStress Test with SPECT MPI: Positive Intermediate Risk CAD Presentations: Stable angina. CONCLUSIONS 50% distal LMCA 65-70% Prox LAD GLOBAL MARKETING COORDINATOR Prox OM1, filling retrogradely via collaterals from OM2; 80% Prox LCX 70-80% Prox/Mid RCA RECOMMENDATIONS Surgery consult for coronary revascularization DESCRIPTION OF PROCEDURE The patient arrived to the procedure lab. The risks and benefits of the procedure as well as a full description of our services here and current unavailability of surgical backup were fully explained to the patient and/or their significant other prior to the catheterization. The Timeout was completed, verifying the correct patient and procedure. The patient's procedural site was prepped and draped in the usual fashion. Local anesthetic was given subcutaneously to right radial region with Lidocaine 2%. Using a modified Seldinger technique, arterial access was obtained via the right radial artery, a 6Fr sheath was inserted. Left Coronary Artery selective angiography was performed in multiple views using a 5 Fr. 4.0 [place] catheter. Right Coronary Artery selective angiography was then performed in multiple views using a 5 Fr. 4.0 [place] catheter.The arterial sheath was pulled and a TR Band was applied for hemostasis CORONARY ANGIOGRAPHY DOMINANCE: Right Dominant LEFT MAIN: Tubular 50% Distal lesion in LMCA LEFT ANTERIOR DESCENDING ARTERY: LAD: Calcified 50% Distal lesion in LAD RIGHT CORONARY ARTERY: RCA: Calcified 70% Proximal lesion in RCA Calcified 80% Mid lesion in RCA COMPLICATIONS No Complications PROCEDURE MEDICATIONS Versed 1 mg IV Fentanyl 50 mcg IV Baby Aspirin (81mg) 1 Tabs PO @ 04/24/2024 08:48:39 Heparin given IA 04/24/2024 10:59:01 Verapamil 2.5mg, Ntg 200mcgs, 2000 units of Heparin given IA 04/24/2024 10:59:01 SUMMARY OF HEMODYNAMIC DATA Time AIR REST ECG 08:47:32 AO 133/62 (88) SA 11:03:37 AIR REST 11:25:54 Signed By Samson Orellana MD On 04/28/2024 12:10:05 Signed By Samson Orellana MD On 04/24/2024 11:28:36 Samson Orellana MD
--- NOTE | 2024-04-24 15:39 | CHAPLAIN ---
Type of Pastoral Visit _x__ Initial Visit _x__ Follow-up Visit ___ On-call Visit ___ General Patient Visit ___ Spiritual Assessment ___ Family Conference ___ Bereavement ___ Rapid Response ___ Code Blue ___ Other (describe below) Pastoral Care Referral From _x__ Patient _x_ Family ___ Nurse ___ Physician ___ Feed Mixer Helper ___ Noodle Press Operator ___ Other (describe below) Sacrament/Intervention _x__ Active listening ___ Anointing ___ Protestant ___ Bereavement ___ Communion _x__ Nancy exploration ___ ___ Life review _x__ Prayer ___ Reconciliation ___ Sacrament of Sick ___ Supportive presence ___ Wedding ___ Other (describe below) Pastoral Comments 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
== END 2024-04-24 13:14 | disposition home or self-care (01) ==
PROVIDERS: Physician Assistant Medical; PCP Family Medicine Geriatric Medicine; Referring Provider Internal Medicine Cardiovascular Disease; Visit Provider Internal Medicine Cardiovascular Disease
DX: I25.118 Atherosclerotic heart disease of native coronary artery with other forms of angina pectoris (principal); G20.C Parkinsonism, unspecified; E11.40 Type 2 diabetes mellitus with diabetic neuropathy, unspecified; Z79.4 Long term (current) use of insulin; I10 Essential (primary) hypertension; E78.2 Mixed hyperlipidemia; G47.33 Obstructive sleep apnea (adult) (pediatric); Z79.899 Other long term (current) drug therapy; Z79.82 Long term (current) use of aspirin; Z79.84 Long term (current) use of oral hypoglycemic drugs
CPT/HCPCS: 36415; 71046; 80048; 85025; 85610; 93458; 99152; Q9967; C1769; C1894

== ENCOUNTER 2024-05-16 12:37 | Inpatient (IN) | payer MEDICARE, OTHER, SELFPAY ==
[2024-05-16 12:57] VITALS: BP 151/59; PULSE 68; RESP 18; TEMP 36.4; O2SAT 100; BMI 34.7
[2024-05-16 14:07] VITALS: PULSE 67; RESP 18; O2SAT 98
[2024-05-16] MEDS: Acetaminophen 500 MG Tablet 1000 MG PO ×2 (14:52→21:39)
[2024-05-16] MEDS: Carbidopa/Levodopa 25/100 Tablet PO ×2 (14:53→21:39)
[2024-05-16 15:40] VITALS: O2SAT 95
--- NOTE | 2024-05-16 15:40 | CPS ---
Set up pt's home AutoPAp machine and filled humidifier.
[2024-05-16] MEDS: Insulin Lispro 100 UNIT/ML INSULN.PEN 14 UNIT SC (17:50)
--- NOTE | 2024-05-16 19:43 | HP.PCM_ITS ---
HPI - General General Date of Admission: 05/16/24 Date of Service: 05/16/24 Chief Complaint: Here for rehabilitation. HPI Narrative Joaquin CAMERON, is a 84 Male who presents with followin04/24/2024 Dr. Orellana performed heart catheterization which showed multi vessel disease. 05/10/2024 Admit to [facility]. 05/10/2024 Dr. Velasco performed cabg x 3. 05/11/2024 Wean oxygen. Levophed for low blood pressure. Aspirin, statin. 05/14/2024 Sugars high. Lantus 28 units qam, Humalog 10 units before meals. 05/15/2024 Afebrile, normal sinus rhythm, on room air, PAP at night. Full dose aspirin, no Plavix. PT/OT. 05/16/2024 Admit to TCU with debility, here for rehabilitation, strengthening, prior to discharge home with . REPLACED BY [facility] Medical History (Updated 05/16/24 @ 19:[address] Fredis Moon MD) Carotid artery disease Malignant neoplasm of prostate Mixed hyperlipidemia Hepatitis B GERD (gastroesophageal reflux disease) Neuropathy Essential hypertension Syncope Wide-complex tachycardia Premature ventricular contraction Premature atrial contractions Sinus bradycardia Atherosclerotic heart disease of [place] coronary artery without angina pectoris Diabetes type 2, controlled Normal pressure hydrocephalus Obesity Asymptomatic PVCs Dyslipidemia HTN (hypertension) Sleep apnea, obstructive Home Medications ?Medication ?Instructions ?Recorded ?Last Taken ?Type calcium 500 mg (as 1 tab PO DAILY supplement Unknown History carbonate)-vitamin D3 200 unit-vit K2 90 mcg tablet empagliflozin 25 mg tablet 25 mg PO DAILY 12/20/17 Unk nown History (Jardiance) triamcinolone acetonide 0.1 % 1 applic topical DAILY P RN SKIN 12/20/17 Unknown History topical cream carbidopa 25 mg-levodopa 100 mg 1 tab PO TID Parkinson s 01/12/20 Unknown History tablet metoprolol succinate 25 mg 12.5 mg PO DAILY 01/12/20 U nknown History tablet,extended release 24 hr (Toprol XL) insulin glargine 100 32 unit subcut QAM diabetes 01/21/22 Unknown History unit-lixisenatide 33 mcg/mL subcutaneous pen (Soliqua /) metformin 1,000 mg tablet 1,000 mg PO BID 01/21/2204/18 History vibegron 75 mg tablet (Gemtesa) 75 mg PO DAILY bladder 01/21/22 Unknown History amlodipine 5 mg tablet 5 mg PO QDAY #30 tabs Unknown Rx acetaminophen 500 mg capsule 1,000 mg PO Q8 pain 05/16 Unknown History aspirin 81 mg tablet,delayed 325 mg PO QDAY blood thin ner 05/16/24 Unknown History release (Adult Aspirin Regimen) atorvastatin 10 mg tablet 40 mg PO QDAY cholesterol Unknown History ferrous sulfate 325 mg (65 mg 325 mg PO QODAY iron sup plement 05/16/24 Unknown History iron) tablet (FeroSul) furosemide 40 mg tablet 40 mg PO DAILY fluid 5 Unknown History insulin lispro 100 unit/mL 14 unit subcut TID diabetes 05/16/24 Unknown History subcutaneous pen metoprolol tartrate 25 mg tablet 25 mg PO BID BP/pulse 05/16/24 Unknown History miconazole nitrate 2 % topical 1 applic topical BID ID N affected 05/16/24 Unknown History cream (Antifungal (miconazole)) area oxycodone 5 mg tablet 5 mg PO Q6H PRN pain 5 Unknown History peg [id number] 1 1 drp EACH EYE TID PRN dry eyes 05/16/24 Unknown History %-0.2 %-0.2 % eye drops (Artificial Tears ([id number])) potassium chloride 20 mEq 40 meq PO DAILY supplement 0 05/16/24 Unknown History tablet,extended release (K-Tab) Allergy/AdvReac Type Severity Reaction Status Date / Time rosuvastatin (From Crestor) AdvReac Severe Flu like Verified 03/23/24 13:22 symptoms adhesive tape AdvReac skin tears Verified 03/23/24 13:22 Family History Father COPD (chronic obstructive pulmonary disease) CAD (coronary artery disease) Mother CVA (cerebral vascular accident) Brother CAD (coronary artery disease) Myocardial infarction, Onset Age: 61 Surgical History (Updated 05/16/24 @ 19:[address] Fredis Moon MD) History of prostatectomy History of cataract surgery History of cholecystectomy History of tonsillectomy Social History (Updated 05/16/24 @ 19:[address] Fredis Moon MD) household members: spouse Smoking Status: Former smoker alcohol intake: never substance use type: does not use ROS Constitutional Constitutional: Denies chills, fever(s) or weight gain ENT HEENT: Denies headache(s), nasal congestion or nasal discharge Cardiovascular Cardiovascular: Denies chest pain or palpitations Respiratory/Chest Respiratory/Chest: Denies cough, excessive phlegm production or shortness of breath with exertion Gastrointestinal Gastrointestinal: Denies abdominal pain, nausea or vomiting Genitourinary Genitourinary: Denies dysuria Musculoskeletal Musculoskeletal: Denies joint pain or joint swelling Integumentary Integumentary: Denies rash or wounds Neurologic Neurologic: Denies focal weakness, numbness or tingling Psychiatric Psychiatric: Denies anxiety, auditory hallucinations, depression, homicidal i deation or suicidal ideation Vital Signs Vital Signs Vital Signs: 05/16/24 12:57 05/16/24 14:07 05/16/24 15:40 Temperature 97.5 F L Temperature Source Temporal Pulse Rate 68 67 Pulse Rhythm Regular Pulse Strength Normal (2+) Respiratory Rate 18 18 Respiratory Effort Normal Non-Labored Respiratory Depth Normal Respiratory Pattern Normal Blood Pressure 151/59 H Blood Pressure Mean 89 Blood Pressure Source Monitor Blood Pressure Position Semi-Fowlers Blood Pressure Location Left Arm Pulse Ox 100 98 95 Oxygen Delivery Method Room Air Room Air Room Air Weight Weight: 97.692 kg Body Mass Index (BMI) 34.7 Physical Exam Const alert General Appearance: cooperative HEENT normocephalic Eyes PERRL and EOMs intact bilaterally Neck supple, no JVD and no carotid bruits Resp normal respiratory effort, normal air movement and clear to auscultation bilaterally Cardio regular rate and regular rhythm GI normal to inspection, nondistended, normoactive bowel sounds, non-tender and non-distended Extremity normal capillary refill General Extremity: Negative for edema Skin no rashes or lesions noted General Skin Exam: no breakdown Psych affect normal Appearance: appropriate Assessment & Plan Assessment/Plan (1) Debility: (2) Coronary artery disease: (3) Status post three vessel coronary artery bypass: (4) Type 2 diabetes mellitus with hyperglycemia: (5) Parkinson disease: (6) Malignant neoplasm of prostate: (7) Diabetic polyneuropathy: (8) Essential (primary) hypertension: (9) Hyperlipidemia, unspecified: (10) Sleep apnea, obstructive: (11) Overactive bladder: PLAN: Plan 84 year old male with below past medical history significant for multi vessel coronary artery disease hospitalized for cabg x 3 05/10/[address] Velasco, postoperative course complicated by hypotension, admitted to TCU with debility, here for rehabilitation, strengthening, prior to discharge home with . * Debility - PT/OT. * Dysphagia - ST. * Pain - Tylenol 1000mg q8, Oxycodone 5mg q4 prn pain (4-10), Lidoderm 1 patch td daily. * Bowel - Miralax 17gm daily, senna/colace 2 tablets bid, Magnesium citrate 300mL po daily prn. * Adult immunization - Administer pneumonia vaccine, covid vaccine, flu vaccine as appropriate. * DVT prophylaxis - Lovenox 40mg sc daily. * Coronary artery disease s/p cabg x 3 - Metoprolol 25mg bid, Aspirin 325mg daily. * Hyperlipidemia - Atorvastatin 40mg qhs. * Calcium deficiency - Calcium D 1 tablet daily. * Parkinson Disease - Sinemet 25/100mg tid. * Iron deficiency anemia - Ferrous sulfate 325mg every other day. * Edema - Furosemide 40mg daily thru 05/24/2024, KCL 40meq daily thru 05/24/2024. * Diabetes Mellitus II - Glargine 32 units qam, Humalog 14 units tidcm. * Tinea Corporis - Miconazole topical bid prn. * Dry Eyes - Artificial tears 1gtt ou tid prn. * Overactive bladder - Gemtesa 75mg daily.
[2024-05-16] MEDS: Atorvastatin Calcium 40 MG Tablet PO (21:39)
[2024-05-16] MEDS: Senna/Docusate Sodium 1 Tablet 2 TABLET PO (21:40)
[2024-05-16 21:44] VITALS: BP 136/40; PULSE 72
[2024-05-16] MEDS: Metoprolol Tartrate 25 MG Tablet PO (21:44)
--- NOTE | 2024-05-16 21:55 | NURSING ---
GEOSPATIAL SYSTEMS INTEGRATOR obtains Blood glucose level with result 260 per [facility] glucometer
[2024-05-16 22:06] LABS: Bedside Glucose 260 mg/dL (74-106)
[2024-05-17] VITALS (13 sets, daily range): BP systolic 121–137; BP diastolic 37–67; PULSE 62–71; RESP 16; TEMP 36.2–36.4; O2SAT 92–100
[2024-05-17] MEDS: Carbidopa/Levodopa 25/100 Tablet PO ×3 (05:24→21:53)
[2024-05-17] MEDS: Enoxaparin 40 MG/0.4 ML Syringe SC (05:24)
[2024-05-17] MEDS: Acetaminophen 500 MG Tablet 1000 MG PO ×3 (05:24→21:54)
[2024-05-17 06:02] LABS: Hematocrit 22.7 % (40-54); Hemoglobin 7.1 g/dL (13.0-16.5); Mean Corp Hgb Conc 31.3 g/dL (32-36); Mean Corpuscular Hgb 27.4 pg (27.0-32.0); Mean Corpuscular Volume 87.6 fL (80-94); Mean Platelet Vol. 9.3 fl (6.2-12.0); POSITIVE COUNT YES; POSITIVE MORPHOLOGY YES; Platelet Count 278 K/mm3 (150-450); RBC Distribution Width CV 14.9 % (11.6-14.6); RBC Distribution Width SD 47.3 fl (35.1-43.9); Red Blood Count 2.59 M/mm3 (4.6-6.2); White Blood Count 8.7 K/mm3 (4.4-11.0)
[2024-05-17 06:21] LABS: Differential Indicated MANUAL DIFF
[2024-05-17 06:24] LABS: Bedside Glucose 225 mg/dL (74-106)
[2024-05-17 06:30] LABS: Anion Gap 12 (5-15); BUN 26 mg/dL (4-19); BUN/Creat Ratio 23.7 RATIO (10-20); Calcium,Total 8.7 mg/dL (7.6-11.0); Carbon Dioxide 23.3 mmol/L (21.0-32.0); Chloride 103 mmol/L (98-108); EST Glomerular Filtration Rate 67 (>60); Estimated Creatinine Clearance 56.65 ml/min (50-250); Glucose 262 mg/dL (70-99); Potassium 4.1 mmol/L (3.3-5.1); Sodium Level 138 mmol/L (133-145)
--- NOTE | 2024-05-17 07:19 | NURSING ---
C/o difficulty sleeping, Hbg 7.1, written communication left for Dr. Moon. Dr. Moon on unit at this time
[2024-05-17 08:10] LABS: Neutrophil-Band 1 % (0-5); Total Cells Counted 100 (MANUAL DIFF)
[2024-05-17 08:11] LABS: Basophil 1 % (0-1); Eosinophil 0 % (0-5); Lymphocyte 8 % (19-41); Metamyelocyte 2 % (0-1); Monocyte 10 % (0-10); Neutrophil-Segmented 78 % (47-70)
[2024-05-17 08:14] LABS: Platelet Estimate A (ADEQ); Polychromasia 1+
[2024-05-17 08:16] LABS: Absolute Lymphocyte Count 0.69 X10^3/uL (0.83-4.51); Absolute Neutrophil Count 6.9 X10^3/uL (2.0-7.7)
[2024-05-17] MEDS: Polyethylene Glycol 3350 17 GM PACKET PO (08:28)
[2024-05-17] MEDS: Lidocaine 5% Patch 1 PATCH TOPICAL (08:28)
[2024-05-17] MEDS: Senna/Docusate Sodium 1 Tablet 2 TABLET PO ×2 (08:28→21:53)
[2024-05-17] MEDS: Potassium Chloride Oral Tablet 20 MEQ 40 MEQ PO (08:29)
[2024-05-17] MEDS: Calcium Carb/Vitamin D 1 TABLET Tablet PO (08:29)
[2024-05-17] MEDS: Vibegron 75 MG TABLET PO (08:29)
[2024-05-17] MEDS: Aspirin 325 MG Tablet PO (08:29)
[2024-05-17] MEDS: Furosemide 40 MG Tablet PO (08:29)
[2024-05-17] MEDS: Metoprolol Tartrate 25 MG Tablet PO ×2 (08:35→21:53)
[2024-05-17] MEDS: Insulin Lispro 100 UNIT/ML INSULN.PEN 14 UNIT SC ×3 (08:43→17:42)
[2024-05-17] MEDS: Insulin Glargine-YFGN 100 UNIT/ML Pen 32 UNIT SC (08:44)
--- NOTE | 2024-05-17 08:53 | NURSING ---
Call from infusion center, when blood ready they will take resident today for transfusion.
--- NOTE | 2024-05-17 10:00 | NURSING ---
Pt at Infusion center for Blood Transfusion.
[2024-05-17 13:08] LABS: Bedside Glucose 291 mg/dL (74-106)
--- NOTE | 2024-05-17 13:50 | PCM.PN.DRR ---
Documented by User: Jyoti Mathews 05/17/24 14:07 TCU RX Drug Regimen Review Subjective/Objective Subjective/Objective Subjective: TCU Admission. 84 YOM presented for a heart cath, multi vessel disease, sent to [facility] for CABG. Hospitalized for cabg x 3 05/10/[address] Velasco, postoperative course complicated by hypotension. Admitted to TCU with debility for strengthening and rehabilitation. Objective: Allergies rosuvastatin (From Crestor) Adverse Reaction (Severe, Verified 03/23/24 13:22) Flu like symptoms adhesive tape Adverse Reaction (Verified 03/23/24 13:22) skin tears Current Medications Generic Name Dose Route Start Last Admin Trade Name Freq PRN Reason Stop Dose Admin Acetaminophen 1,000 mg 05/16/24 14:00 05/17/24 05:24 Acetaminophen 500 Mg Tablet PO 1,000 mg Q8 SOTO Administration Aspirin 325 mg 05/17/24 08:00 05/17/24 08:29 Aspirin 325 Mg Tablet PO 325 mg BREAKFAST SOTO Administration Atorvastatin Calcium 40 mg 05/16/24 22:00 05/16/24 21:39 Atorvastatin Calcium 40 Mg Tablet PO 40 mg QHS SOTO Administration Calcium/Vitamin D 1 tablet 05/17/24 10:00 05/17/24 08:29 Calcium Carb/Vitamin D 1 Tablet Tablet PO 1 tablet DAILY SOTO Administration Carbidopa/Levodopa 1 tablet 05/16/24 14:00 05/17/24 05:24 Carbidopa/Levodopa 25/100 Tablet PO 1 tablet TID SOTO Administration Enoxaparin Sodium 40 mg 05/17/24 06:00 05/17/24 05:24 Enoxaparin 40 Mg/0.4 Ml Syringe SC 40 mg DAILY@0600 SOTO Administration Ferrous Sulfate 325 mg 05/18/24 10:00 Ferrous Sulfate 325 Mg Tablet PO QODAY SOTO Furosemide 40 mg 05/17/24 10:00 05/17/24 08:29 Furosemide 40 Mg Tablet PO 05/24/24 10:01 40 mg DAILY SOTO Administration Protocol Glycerin/Hypromellose/Polyethylene 1 drp 05/16/24 12:58 Glycerin/Hypromellose/Qks115 15 Ml Bottle EACH EYE TID PRN dry eyes Insulin Glargine 32 unit 05/17/24 10:00 05/17/24 08:44 Insulin Glargine-Yfgn 100 Unit/Ml Pen SC 32 unit QAM SOTO Administration Insulin Human Lispro 14 unit 05/16/24 17:45 05/17/24 12:01 Insulin Lispro 100 Unit/Ml Insuln.Pen SC 14 units TIDCM SOTO Administration Lidocaine 1 patch 05/17/24 10:00 05/17/24 08:28 Lidocaine 5% Patch TOPICAL 1 patch DAILY SOTO Administration Protocol Magnesium Citrate 300 ml 05/16/24 19:55 Magnesium Citrate 300 Ml PO DAILY PRN Constipation Melatonin 3 mg 05/17/24 22:00 Melatonin 3 Mg Tablet PO QHS SOTO Metoprolol Tartrate 25 mg 05/16/24 22:00 05/17/24 08:35 Metoprolol Tartrate 25 Mg Tablet PO 25 mg BID [facility] Administration Protocol Miconazole Nitrate 1 applic 05/16/24 12:58 Miconazole Nitrate Cream TOPICAL BID PRN affected area Protocol Oxycodone HCl 5 mg 05/16/24 19:56 Oxycodone 5 Mg Tablet PO Q4H PRN PRN Pain Score 4-10 or Pre PT/OT Polyethylene Glycol 17 gm 05/17/24 10:00 05/17/24 08:28 Polyethylene Glycol 3350 17 Gm Packet PO 17 gm DAILY SOTO Administration Potassium Chloride 40 meq 05/17/24 10:00 05/17/24 08:29 Potassium Chloride Oral Tablet 20 Meq PO 05/24/24 10:01 40 meq DAILY SOTO Administration Senna/Docusate Sodium 2 tablet 05/16/24 22:00 05/17/24 08:28 Senna/Docusate Sodium 1 Tablet PO 2 tablet BID SOTO Administration Tuberculin PPD 0.1 ml 05/24/24 10:00 Tuberculin,Purif.Prot.Deriv. 50 Tu/Ml Vial ID 05/24/24 10:01 X1 ONE Problem List Overactive bladder (Acute) Hyperlipidemia, unspecified (Acute) Essential (primary) hypertension (Acute) Diabetic polyneuropathy (Acute) Malignant neoplasm of prostate (Acute) Parkinson disease (Acute) Type 2 diabetes mellitus with hyperglycemia (Acute) Status post three vessel coronary artery bypass (Acute) Coronary artery disease (Acute) Debility (Acute) Sleep apnea, obstructive (Chronic) Vital Signs Temp Pulse Resp BP Pulse Ox O2 Del Method 97.4 F L 63 16 125/41 H 92 Room Air 05/17/24 13:28 05/17/24 13:28 05/17/24 13:28 05/17/24 13:28 05/17/24 13:28 05/17/24 13:28 Oxygen Delivery Method Room Air Weight: 97.692 kg Body Mass Index (BMI) 34.7 Sodium 138 mmol/L (133-145) 05/17/24 05:19 Potassium 4.1 mmol/L (3.3-5.1) 05/17/24 05:19 Chloride 103 mmol/L (98-108) 05/17/24 05:19 Carbon Dioxide 23.3 mmol/L (21.0-32.0) 05/17/24 05:19 Anion Gap 12 (5-15) 05/17/24 05:19 BUN 26 mg/dL (4-19) H 05/17/24 05:19 Creatinine 1.10 mg/dL (0.70-1.20) 05/17/24 05:19 Est GFR (MDRD) Non-Af 67 (>60) 05/17/24 05:19 BUN/Creatinine Ratio 23.7 RATIO (10-20) H 05/17/24 05:19 Glucose 262 mg/dL (70-99) H 05/17/24 05:19 Assessment/Plan: 1. Pain: acetaminophen 1000mg PO Q8, oxycodone 5mg PO Q4H PRN pain 4-10 and lidocaine 5% patch 1 patch topical daily. Please continue to monitor for increased pain and PRN usage (no PRN doses given). 2. Bowel: Miralax 17gm PO daily, senna/docusate 2T PO BID and magnesium citrate 300mL PO daily PRN constipation. No PRN doses given. Please continue to monitor for constipation and PRN usage. Last documented bowel movement was 05/16/24. 3. DVT prophylaxis: enoxaparin 40mg SC daily. Please continue to monitor for S/S of bleeding/DVT, platelets (last 278,000), renal function and hemoglobin (last 7.1g/dL). 4. CAD s/p CABGx3: metoprolol tartrate 25mg PO BID and aspirin 325mg PO daily. Per H&P, no clopidogrel, full dose aspirin instead. Please continue to monitor for S/S of bleeding, hemoglobin, BP (last 125/41), HR (last 63). 5. Hyperlipidemia: atorvastatin 40mg PO QHS. Please continue to monitor lipid panel (last 03/07/24), LFTs (last 03/07/24) and muscle pain. 6. Parkinson disease: carbidopa/levodopa 25/100mg PO TID. Please continue to monitor for S/S of Parkinson disease and GI side effects. 7. Edema: furosemide 40mg PO daily thru 05/24/24 and potassium chloride 40mEq PO daily thru 05/24/24. Please continue to monitor for S/S of edema, renal function and potassium (last 4.1mmol/L). 8. Iron deficiency anemia: ferrous sulfate 325mg PO every other day. Please continue to monitor hemoglobin, dark stools and constipation. 9. Diabetes mellitus II: insulin glargine 32units SC AM and insulin lispro 14units SC TIDCM. Please continue to monitor hemoglobin A1c (last 7.8% 03/07/24), glucose (last 291 mg/dL), S/S of hypoglycemia. 10. Dry eyes: Artificial Tears 1gtt OU TID PRN dry eyes. No PRN doses given. Please continue to monitor for PRN usage and dry eyes. 11. Overactive bladder: vibegron 75mg PO daily. Please continue to monitor for S/S of overactive bladder, headache, hot flashes. 12. Insomnia: melatonin 3mg PO QHS. Please continue to monitor for excessive daytime drowsiness. 13. Calcium deficiency: calcium/vitamin D 1T PO daily. Please continue to monitor calcium (last 8.7mg/dL) and vitamin D (last 03/07/24). 14. Tinea Corporis: miconazole topical bid prn. Please continue to monitor. Assessment/Plan for indications treated with psychotropic medications: None Medical chart and medication regimen reviewed. The following medication irregularities or issues were identified: None Date Date of Note: 05/17/24 Documented by User: Dr. Fredis Moon MD 05/17/24 14:17 TCU RX Drug Regimen Review Provider Comments Provider responsibility Provider Comments to Recommendations by Pharmacy Agree
[2024-05-17] MEDS: Furosemide 20 MG/2 ML VIAL IV (15:50)
--- NOTE | 2024-05-17 16:21 | CHAPLAIN ---
Type of Pastoral Visit _x__ Initial Visit ___ Follow-up Visit ___ On-call Visit ___ General Patient Visit ___ Spiritual Assessment ___ Family Conference ___ Bereavement ___ Rapid Response ___ Code Blue ___ Other (describe below) Pastoral Care Referral From _x__ Patient ___ Family ___ Nurse ___ Physician ___ Art Educator ___ Engineer Specialist ___ Other (describe below) Sacrament/Intervention _x__ Active listening ___ Anointing ___ Yarsanism ___ Bereavement ___ Communion _x__ Nancy exploration ___ _x__ Life review _x__ Prayer ___ Reconciliation ___ Sacrament of Sick ___ Supportive presence ___ Wedding ___ Other (describe below) Pastoral Comments patient is known to this technical intern; patient was not in his room but his came to unit at this time and stated pt was in infusion; escorted spouse to the infusion area in Outpatient building and talked with the patient during his transfusion; pt was very talkative and gave examples of his hospital experiences and that he is seeing the purpose of God in his health needs and hospitalization; pt welcomes presence, prayer, and future visits
[2024-05-17 17:37] LABS: Bedside Glucose 351 mg/dL (74-106)
[2024-05-17] MEDS: Tuberculin,Purif.prot.deriv. 50 TU/ML Vial 0.1 ML ID (17:42)
[2024-05-17] MEDS: Insulin Glargine-YFGN 100 UNIT/ML Pen 30 UNIT SC (21:52)
[2024-05-17] MEDS: MELATONIN 3 MG TABLET PO (21:54)
[2024-05-17] MEDS: Atorvastatin Calcium 40 MG Tablet PO (21:54)
[2024-05-17 21:58] LABS: Bedside Glucose 205 mg/dL (74-106)
[2024-05-18] MEDS: Carbidopa/Levodopa 25/100 Tablet PO ×3 (06:12→21:25)
[2024-05-18] MEDS: Acetaminophen 500 MG Tablet 1000 MG PO ×3 (06:12→21:26)
[2024-05-18 06:40] LABS: Bedside Glucose 202 mg/dL (74-106)
[2024-05-18 08:13] VITALS: O2SAT 95
[2024-05-18] MEDS: Insulin Lispro 100 UNIT/ML INSULN.PEN 20 UNIT SC ×3 (09:05→17:04)
[2024-05-18] MEDS: Senna/Docusate Sodium 1 Tablet 2 TABLET PO ×2 (09:06→21:28)
[2024-05-18] MEDS: Vibegron 75 MG TABLET PO (09:06)
[2024-05-18] MEDS: Furosemide 40 MG Tablet PO (09:06)
[2024-05-18] MEDS: Lidocaine 5% Patch 1 PATCH TOPICAL (09:06)
[2024-05-18 09:07] VITALS: BP 128/69; PULSE 71; RESP 18; TEMP 36.7; O2SAT 98
[2024-05-18] MEDS: Potassium Chloride Oral Tablet 20 MEQ 40 MEQ PO (09:07)
[2024-05-18] MEDS: Aspirin 325 MG Tablet PO (09:07)
[2024-05-18] MEDS: Calcium Carb/Vitamin D 1 TABLET Tablet PO (09:07)
[2024-05-18] MEDS: Ferrous Sulfate 325 MG Tablet PO (09:07)
[2024-05-18] MEDS: Insulin Glargine-YFGN 100 UNIT/ML Pen 30 UNIT SC (09:07)
[2024-05-18] MEDS: Polyethylene Glycol 3350 17 GM PACKET PO (09:07)
[2024-05-18 09:11] VITALS: PULSE 72
[2024-05-18] MEDS: Metoprolol Tartrate 25 MG Tablet PO ×2 (09:11→21:27)
--- NOTE | 2024-05-18 11:31 | CASEMGMT ---
Addendum entered by Monie Mcwilliams 05/18/24 14:40: SW returned to room. was present. Pt was getting ready to go to therapy but requested this worker speak with . SW spoke with . Finished assessment questions. Educated to Medicare benefit and POC meeting. Inquired about advance directives. The copies on file from 2007 are old, and have since been updated. to provide [facility] with new documents to place on file. Original Note: Social Work SW met with patient to complete initial assessment. Introduced self and role. Verified/updated contacts. SW educated to Medicare benefit and copay coverage. SW to assist with DC planning. Pt's goal is to return home with at [facility]. Pt shared extensive personal history. SW provided active listening. Pt expressed being very passionate about his steve, sharing, God didn't do this to me [referencing his heart issues], I did this to me, by not taking care of my health. I am in position to share the word of [place] and lead people to [place]. Pt shared he has already lead several staff members throughout his hospitalization, to [place]. Pt said he was particularly interested in speaking to one of [facility]'s consulting project director about his faith, if POULTRY SERVICE TECHNICIAN was interested. Then pt asked this worker about confucianism affiliation, and if this worker this afternoon would you be saved by [place] and go to [facility]? SW deflected and attempted to shift the focus back on the pt, and noting pt needing to have a Doppler completed in several minutes, and this worker wanted to maintain the conversation on the pt. Pt stated, if you can answer my question, then we can move on. SW denied and kindly explained there are Social Work Ethics this worker follows and does not discuss this personal information with the pt. Reiterating to maintain the focus on the pt. SW explained the pt can share as much as he'd like on faith, but this worker will not be sharing any personal confucianism views with the pt. At this moment, the radiologist and consulting project director interrupted to complete the Doppler and transfer bed into bed. Pt asked this worker to return after testing. SW agreed. Monie Mcwilliams LINEN SUPPLY LOAD BUILDER LAB INSTRUCTOR
[2024-05-18 11:52] LABS: Bedside Glucose 231 mg/dL (74-106)
[2024-05-18 16:17] LABS: Hematocrit 29.5 % (40-54); Hemoglobin 9.9 g/dL (13.0-16.5)
[2024-05-18 16:57] LABS: Bedside Glucose 164 mg/dL (74-106)
[2024-05-18] MEDS: MELATONIN 3 MG TABLET PO (21:26)
[2024-05-18 21:27] VITALS: PULSE 82
[2024-05-18] MEDS: Atorvastatin Calcium 40 MG Tablet PO (21:27)
[2024-05-18 21:44] LABS: Bedside Glucose 79 mg/dL (74-106)
[2024-05-18 21:54] LABS: Bedside Glucose 87 mg/dL (74-106)
[2024-05-19] MEDS: Acetaminophen 500 MG Tablet 1000 MG PO ×3 (06:05→21:11)
[2024-05-19] MEDS: Carbidopa/Levodopa 25/100 Tablet PO ×3 (06:05→21:11)
[2024-05-19 06:20] LABS: Bedside Glucose 215 mg/dL (74-106)
[2024-05-19] MEDS: Insulin Lispro 100 UNIT/ML INSULN.PEN 20 UNIT SC ×3 (08:21→17:43)
[2024-05-19] MEDS: Vibegron 75 MG TABLET PO (08:22)
[2024-05-19] MEDS: Aspirin 325 MG Tablet PO (08:22)
[2024-05-19] MEDS: Potassium Chloride Oral Tablet 20 MEQ 40 MEQ PO (08:23)
[2024-05-19] MEDS: Insulin Glargine-YFGN 100 UNIT/ML Pen 30 UNIT SC ×2 (08:23→21:13)
[2024-05-19] MEDS: Furosemide 40 MG Tablet PO (08:23)
[2024-05-19 08:24] VITALS: BP 133/53; PULSE 75
[2024-05-19] MEDS: Metoprolol Tartrate 25 MG Tablet PO ×2 (08:24→21:12)
[2024-05-19] MEDS: Lidocaine 5% Patch 1 PATCH TOPICAL (08:24)
[2024-05-19] MEDS: Senna/Docusate Sodium 1 Tablet 2 TABLET PO ×2 (08:25→21:13)
[2024-05-19] MEDS: Calcium Carb/Vitamin D 1 TABLET Tablet PO (08:25)
[2024-05-19] MEDS: Polyethylene Glycol 3350 17 GM PACKET PO (08:25)
[2024-05-19 10:00] VITALS: BP 133/53; PULSE 75; RESP 20; TEMP 36.7; O2SAT 98
[2024-05-19 12:15] LABS: Bedside Glucose 178 mg/dL (74-106)
--- NOTE | 2024-05-19 12:17 | NURSING ---
Direct Marketing Coordinator Note; Activity Asst: Dannie de paz is independent in his choice of daily activities. He has his harmonica, bible, smartphone, will read and watch tv along with family and friends visiting him daily. He welcomes visits from the director loan and therapy dog when available. Staff will remind him of weekly activities and respect his right to say no.
[2024-05-19 17:12] LABS: Bedside Glucose 158 mg/dL (74-106)
--- NOTE | 2024-05-19 18:24 | NURSING ---
Patient concerned about sitting so much in room and wishes that he could have more therapy. He states he is afraid he will get weaker if he doesn't move more. This nurse offers to walk with patient in [place] and patient able to walk entire unit. Patient encouraged to call to walk in [place] in afternoon/evening if he wants to move around more. Educated to not get up on own and that is unable to walk with him until therapy approves it. Patient appreciative and reports understanding. Therapy made aware of patient's desire to be able to walk with .
[2024-05-19] MEDS: MELATONIN 3 MG TABLET PO (21:11)
[2024-05-19 21:12] VITALS: PULSE 75
[2024-05-19] MEDS: Atorvastatin Calcium 40 MG Tablet PO (21:13)
[2024-05-19 21:27] LABS: Bedside Glucose 167 mg/dL (74-106)
[2024-05-20] MEDS: oxyCODONE 5 MG Tablet PO ×2 (01:29→05:50)
[2024-05-20] MEDS: Carbidopa/Levodopa 25/100 Tablet PO ×3 (05:51→21:22)
[2024-05-20] MEDS: Acetaminophen 500 MG Tablet 1000 MG PO ×3 (05:51→21:22)
[2024-05-20 06:35] LABS: Bedside Glucose 130 mg/dL (74-106)
[2024-05-20] MEDS: Insulin Lispro 100 UNIT/ML INSULN.PEN 20 UNIT SC ×2 (08:46→12:19)
[2024-05-20] MEDS: Aspirin 325 MG Tablet PO (08:47)
[2024-05-20] MEDS: Calcium Carb/Vitamin D 1 TABLET Tablet PO (08:47)
[2024-05-20] MEDS: Furosemide 40 MG Tablet PO (08:48)
[2024-05-20] MEDS: Polyethylene Glycol 3350 17 GM PACKET PO (08:48)
[2024-05-20] MEDS: Potassium Chloride Oral Tablet 20 MEQ 40 MEQ PO (08:48)
[2024-05-20] MEDS: Senna/Docusate Sodium 1 Tablet 2 TABLET PO ×2 (08:49→21:20)
[2024-05-20] MEDS: Vibegron 75 MG TABLET PO (08:49)
[2024-05-20] MEDS: Ferrous Sulfate 325 MG Tablet PO (08:50)
[2024-05-20] MEDS: Insulin Glargine-YFGN 100 UNIT/ML Pen 30 UNIT SC ×2 (08:51→21:18)
[2024-05-20] MEDS: Lidocaine 5% Patch 1 PATCH TOPICAL (08:53)
[2024-05-20 09:05] VITALS: BP 117/45; PULSE 82
[2024-05-20] MEDS: Metoprolol Tartrate 25 MG Tablet PO ×2 (09:05→21:21)
[2024-05-20 11:37] LABS: Bedside Glucose 195 mg/dL (74-106)
[2024-05-20 16:00] VITALS: BP 129/58; PULSE 67; RESP 14; TEMP 36.4; O2SAT 98
[2024-05-20 16:42] LABS: Bedside Glucose 69 mg/dL (74-106)
[2024-05-20] MEDS: Insulin Lispro 100 UNIT/ML INSULN.PEN 10 UNIT SC (17:48)
[2024-05-20] MEDS: MELATONIN 3 MG TABLET PO (21:20)
[2024-05-20 21:21] VITALS: BP 118/48; PULSE 68
[2024-05-20] MEDS: Atorvastatin Calcium 40 MG Tablet PO (21:23)
[2024-05-20 21:29] LABS: Bedside Glucose 179 mg/dL (74-106)
[2024-05-21] MEDS: Carbidopa/Levodopa 25/100 Tablet PO ×3 (05:25→22:01)
[2024-05-21] MEDS: Acetaminophen 500 MG Tablet 1000 MG PO ×3 (05:25→22:02)
[2024-05-21 09:08] VITALS: BP 120/50; PULSE 80; RESP 17; TEMP 36.3; O2SAT 80
[2024-05-21] MEDS: Aspirin 325 MG Tablet PO (09:16)
[2024-05-21] MEDS: Vibegron 75 MG TABLET PO (09:16)
[2024-05-21] MEDS: Insulin Glargine-YFGN 100 UNIT/ML Pen 30 UNIT SC ×2 (09:17→22:02)
[2024-05-21 09:18] VITALS: PULSE 80
[2024-05-21] MEDS: Potassium Chloride Oral Tablet 20 MEQ 40 MEQ PO (09:18)
[2024-05-21] MEDS: Polyethylene Glycol 3350 17 GM PACKET PO (09:18)
[2024-05-21] MEDS: Metoprolol Tartrate 25 MG Tablet PO ×2 (09:18→22:00)
[2024-05-21] MEDS: Lidocaine 5% Patch 1 PATCH TOPICAL (09:18)
[2024-05-21] MEDS: Calcium Carb/Vitamin D 1 TABLET Tablet PO (09:18)
[2024-05-21] MEDS: Furosemide 40 MG Tablet PO (09:18)
[2024-05-21] MEDS: Senna/Docusate Sodium 1 Tablet 2 TABLET PO ×2 (09:19→22:01)
[2024-05-21 10:35] LABS: Bedside Glucose 173 mg/dL (74-106)
[2024-05-21 11:28] LABS: Bedside Glucose 270 mg/dL (74-106)
[2024-05-21] MEDS: Insulin Lispro 100 UNIT/ML INSULN.PEN 20 UNIT SC ×2 (12:07→17:14)
[2024-05-21 16:39] LABS: Bedside Glucose 243 mg/dL (74-106)
[2024-05-21 22:00] VITALS: BP 127/46; PULSE 66
[2024-05-21] MEDS: MELATONIN 3 MG TABLET PO (22:02)
[2024-05-21] MEDS: Atorvastatin Calcium 40 MG Tablet PO (22:08)
[2024-05-21 22:20] LABS: Bedside Glucose 151 mg/dL (74-106)
[2024-05-22] MEDS: Carbidopa/Levodopa 25/100 Tablet PO ×3 (05:37→22:01)
[2024-05-22] MEDS: Acetaminophen 500 MG Tablet 1000 MG PO ×3 (05:38→22:01)
[2024-05-22 06:32] LABS: Bedside Glucose 152 mg/dL (74-106)
[2024-05-22] MEDS: Insulin Lispro 100 UNIT/ML INSULN.PEN 20 UNIT SC (08:00)
[2024-05-22 08:01] VITALS: BP 132/57; PULSE 67
[2024-05-22] MEDS: Vibegron 75 MG TABLET PO (08:01)
[2024-05-22] MEDS: Aspirin 325 MG Tablet PO (08:01)
[2024-05-22] MEDS: Furosemide 40 MG Tablet PO (08:01)
[2024-05-22] MEDS: Metoprolol Tartrate 25 MG Tablet PO ×2 (08:01→22:00)
[2024-05-22] MEDS: Senna/Docusate Sodium 1 Tablet 2 TABLET PO ×2 (08:01→22:01)
[2024-05-22] MEDS: Calcium Carb/Vitamin D 1 TABLET Tablet PO (08:01)
[2024-05-22] MEDS: Ferrous Sulfate 325 MG Tablet PO (08:01)
[2024-05-22] MEDS: Potassium Chloride Oral Tablet 20 MEQ 40 MEQ PO (08:04)
[2024-05-22] MEDS: Lidocaine 5% Patch 1 PATCH TOPICAL (08:04)
[2024-05-22] MEDS: Polyethylene Glycol 3350 17 GM PACKET PO (08:05)
[2024-05-22] MEDS: Menthol/Lanolin/Calamine/Znox 113 GM Tube 1 APPLIC TOPICAL ×2 (08:13→22:02)
--- NOTE | 2024-05-22 10:53 | NURSING ---
Offered covid vaccine, resident states he had recently in February.
[2024-05-22] MEDS: Insulin Glargine-YFGN 100 UNIT/ML Pen 30 UNIT SC (11:00)
--- NOTE | 2024-05-22 12:11 | CASEMGMT ---
Social Work SW completed BIMS () and PHQ-2 () for MDS assessment. Monie Mcwilliams SUPERVISOR TANK CLEANING ASSOCIATE PROFESSOR OF PSYCHOLOGY
[2024-05-22 12:15] LABS: Bedside Glucose 98 mg/dL (74-106)
[2024-05-22 15:30] VITALS: BP 126/54; PULSE 78; RESP 16; TEMP 36.1; O2SAT 97
[2024-05-22 16:47] LABS: Bedside Glucose 192 mg/dL (74-106)
[2024-05-22 16:48] VITALS: BMI 34.5
[2024-05-22] MEDS: Insulin Lispro 100 UNIT/ML INSULN.PEN 15 UNIT SC (17:40)
[2024-05-22 21:59] VITALS: BP 126/55; PULSE 67
[2024-05-22 22:00] VITALS: BP 126/55; PULSE 67
[2024-05-22] MEDS: Atorvastatin Calcium 40 MG Tablet PO (22:00)
[2024-05-22] MEDS: MELATONIN 3 MG TABLET PO (22:01)
[2024-05-22] MEDS: Insulin Glargine-YFGN 100 UNIT/ML Pen 25 UNIT SC (22:01)
[2024-05-22 22:03] LABS: Bedside Glucose 135 mg/dL (74-106)
[2024-05-23] MEDS: Enoxaparin 40 MG/0.4 ML Syringe SC (06:14)
[2024-05-23] MEDS: Acetaminophen 500 MG Tablet 1000 MG PO ×3 (06:14→21:21)
[2024-05-23] MEDS: Carbidopa/Levodopa 25/100 Tablet PO ×3 (06:14→21:20)
[2024-05-23 06:18] LABS: Bedside Glucose 139 mg/dL (74-106)
[2024-05-23 06:45] LABS: Hematocrit 30.6 % (40-54); Hemoglobin 9.5 g/dL (13.0-16.5)
[2024-05-23 08:35] VITALS: BP 139/59; PULSE 68; RESP 16; TEMP 36.2; O2SAT 99
[2024-05-23] MEDS: Calcium Carb/Vitamin D 1 TABLET Tablet PO (08:39)
[2024-05-23] MEDS: Polyethylene Glycol 3350 17 GM PACKET PO (08:39)
[2024-05-23] MEDS: Furosemide 40 MG Tablet PO (08:39)
[2024-05-23] MEDS: Aspirin 325 MG Tablet PO (08:39)
[2024-05-23 08:40] VITALS: PULSE 68
[2024-05-23] MEDS: Vibegron 75 MG TABLET PO (08:40)
[2024-05-23] MEDS: Metoprolol Tartrate 25 MG Tablet PO ×2 (08:40→21:22)
[2024-05-23] MEDS: Potassium Chloride Oral Tablet 20 MEQ 40 MEQ PO (08:40)
[2024-05-23] MEDS: Lidocaine 5% Patch 1 PATCH TOPICAL (08:40)
[2024-05-23] MEDS: Senna/Docusate Sodium 1 Tablet 2 TABLET PO ×2 (08:41→21:21)
[2024-05-23] MEDS: Insulin Lispro 100 UNIT/ML INSULN.PEN 15 UNIT SC ×3 (08:41→17:51)
[2024-05-23] MEDS: Menthol/Lanolin/Calamine/Znox 113 GM Tube 1 APPLIC TOPICAL ×2 (08:47→21:29)
[2024-05-23] MEDS: Insulin Glargine-YFGN 100 UNIT/ML Pen 25 UNIT SC ×2 (09:51→21:58)
[2024-05-23 11:25] LABS: Bedside Glucose 177 mg/dL (74-106)
[2024-05-23 16:00] VITALS: BMI 34.3
--- NOTE | 2024-05-23 16:30 | CHAPLAIN ---
Type of Pastoral Visit ___ Initial Visit _x__ Follow-up Visit ___ On-call Visit ___ General Patient Visit ___ Spiritual Assessment ___ Family Conference ___ Bereavement ___ Rapid Response ___ Code Blue ___ Other (describe below) Pastoral Care Referral From _x__ Patient ___ Family ___ Nurse ___ Physician ___ Personal Lines Insurance Advisor ___ Service Support Representative ___ Other (describe below) Sacrament/Intervention _x__ Active listening ___ Anointing ___ Episcopalian ___ Bereavement ___ Communion ___ Nancy exploration ___ ___ Life review ___ Prayer ___ Reconciliation ___ Sacrament of Sick _x__ Supportive presence ___ Wedding ___ Other (describe below) Pastoral Comments
[2024-05-23 16:51] LABS: Bedside Glucose 101 mg/dL (74-106)
[2024-05-23] MEDS: Atorvastatin Calcium 40 MG Tablet PO (21:20)
[2024-05-23] MEDS: MELATONIN 3 MG TABLET PO (21:21)
[2024-05-23 21:22] VITALS: PULSE 64
[2024-05-24 02:48] LABS: Bedside Glucose 104 mg/dL (74-106)
[2024-05-24] MEDS: Carbidopa/Levodopa 25/100 Tablet PO ×3 (05:33→21:45)
[2024-05-24] MEDS: Acetaminophen 500 MG Tablet 1000 MG PO ×3 (05:33→21:45)
[2024-05-24] MEDS: Enoxaparin 40 MG/0.4 ML Syringe SC (05:34)
[2024-05-24 06:11] LABS: Absolute Lymphocyte Count 0.97 X10^3/uL (0.83-4.51); Absolute Neutrophil Count 4.3 X10^3/uL (2.0-7.7); Basophil# 0.06 X10^3/uL; Eosinophil# 0.17 X10^3/uL; Eosinophils% 2.7 % (0-5); Hematocrit 31.9 % (40-54); Hemoglobin 9.8 g/dL (13.0-16.5); Lymphocyte # 0.97 X10^3/ul (0.83-4.51); Lymphocyte % 15.4 % (19-41); Mean Corp Hgb Conc 30.7 g/dL (32-36); Mean Corpuscular Hgb 27.5 pg (27.0-32.0); Mean Corpuscular Volume 89.6 fL (80-94); Mean Platelet Vol. 8.9 fl (6.2-12.0); Monocyte% 11.1 % (0-10); NRBC Flagged by Analyzer 0 % (0-5); Neutrophil # 4.31 X10^3/uL (2.7-7.7); Neutrophil % 68.2 % (47-70); Platelet Count 357 K/mm3 (150-450); RBC Distribution Width CV 14.9 % (11.6-14.6); RBC Distribution Width SD 49.1 fl (35.1-43.9); Red Blood Count 3.56 M/mm3 (4.6-6.2); White Blood Count 6.3 K/mm3 (4.4-11.0)
[2024-05-24 06:32] LABS: Anion Gap 11 (5-15); BUN 25 mg/dL (4-19); BUN/Creat Ratio 22.9 RATIO (10-20); Calcium,Total 8.9 mg/dL (7.6-11.0); Carbon Dioxide 24.5 mmol/L (21.0-32.0); Chloride 104 mmol/L (98-108); Creatinine, Serum 1.08 mg/dL (0.70-1.20); EST Glomerular Filtration Rate 69 (>60); Estimated Creatinine Clearance 57.34 ml/min (50-250); Glucose 142 mg/dL (70-99); Potassium 4.3 mmol/L (3.3-5.1); Sodium Level 140 mmol/L (133-145)
[2024-05-24 06:33] LABS: Bedside Glucose 159 mg/dL (74-106)
[2024-05-24] MEDS: Lidocaine 5% Patch 1 PATCH TOPICAL (08:26)
[2024-05-24] MEDS: Aspirin 325 MG Tablet PO (08:26)
[2024-05-24] MEDS: Vibegron 75 MG TABLET PO (08:27)
[2024-05-24] MEDS: Potassium Chloride Oral Tablet 20 MEQ 40 MEQ PO (08:27)
[2024-05-24] MEDS: Senna/Docusate Sodium 1 Tablet 2 TABLET PO (08:27)
[2024-05-24] MEDS: Calcium Carb/Vitamin D 1 TABLET Tablet PO (08:27)
[2024-05-24] MEDS: Polyethylene Glycol 3350 17 GM PACKET PO (08:27)
[2024-05-24] MEDS: Furosemide 40 MG Tablet PO (08:27)
[2024-05-24] MEDS: Ferrous Sulfate 325 MG Tablet PO (08:27)
[2024-05-24 08:28] VITALS: BP 121/51; PULSE 68
[2024-05-24] MEDS: Insulin Lispro 100 UNIT/ML INSULN.PEN 15 UNIT SC ×2 (08:28→12:07)
[2024-05-24] MEDS: Metoprolol Tartrate 25 MG Tablet PO ×2 (08:28→21:44)
[2024-05-24] MEDS: Insulin Glargine-YFGN 100 UNIT/ML Pen 25 UNIT SC (08:29)
--- NOTE | 2024-05-24 08:49 | NURSING ---
Cyber Threat Analyst Note; MDS for 05/23/2024 Complete
--- NOTE | 2024-05-24 10:54 | CASEMGMT ---
Social Work IDT met with patient, , dtr and MANDIE for care plan meeting. Discussed patient's progress in PT/OT/ST/SN. Educated to Medicare benefit. Provided pt/family with written communication of insurance process and copay coverage during stay. Discussed DC plans. Pt's goal is to return home with and can assist. Pt struggles to understand that he is not functioning now as he did at baseline, mainly d/t sternal precautions and the lack of ability to be independent, and needing to use the walker. Education continues to be provided by therapists on energy conservation and not over-doing exercises/walking. SW explained pt can continue with skilled HHC at DC or if tafe registrar recommended cardiac rehab. SW to assist with coordination. Pt does have virtual appt with tafe registrar 4/3 and encouraged pt to ask questions. Pt appreciative. Answered pt/family questions. SW will continue to follow for DC planning and support. Monie Mcwilliams AUTOMOTIVE GENERAL MANAGER CRIME SCENE EVIDENCE TECHNICIAN
[2024-05-24] MEDS: Tuberculin,Purif.prot.deriv. 50 TU/ML Vial 0.1 ML ID (11:37)
[2024-05-24 11:38] LABS: Bedside Glucose 149 mg/dL (74-106)
[2024-05-24] MEDS: Menthol/Lanolin/Calamine/Znox 113 GM Tube 1 APPLIC TOPICAL ×2 (11:41→21:42)
[2024-05-24 14:42] VITALS: BP 102/45; PULSE 62; RESP 16; TEMP 36.3; O2SAT 100
--- NOTE | 2024-05-24 16:10 | NURSING ---
Pt's BS 61 pt given orange juice and Nikita crackers. Pt BS rechecked and was 79. Dr. Moon updated Glargine and Lispro doses changed and Per Dr. Moon hold 1745 dose of Lispro.
[2024-05-24 16:26] LABS: Bedside Glucose 61 mg/dL (74-106)
[2024-05-24 16:57] LABS: Bedside Glucose 79 mg/dL (74-106)
[2024-05-24 21:44] VITALS: BP 143/70; PULSE 64
[2024-05-24] MEDS: MELATONIN 3 MG TABLET PO (21:44)
[2024-05-24] MEDS: Atorvastatin Calcium 40 MG Tablet PO (21:44)
[2024-05-24] MEDS: Insulin Glargine-YFGN 100 UNIT/ML Pen 15 UNIT SC (21:47)
[2024-05-24 21:57] LABS: Bedside Glucose 197 mg/dL (74-106)
[2024-05-25] MEDS: Enoxaparin 40 MG/0.4 ML Syringe SC (05:35)
[2024-05-25] MEDS: Acetaminophen 500 MG Tablet 1000 MG PO ×3 (05:37→21:03)
[2024-05-25] MEDS: Carbidopa/Levodopa 25/100 Tablet PO ×3 (05:37→21:04)
--- NOTE | 2024-05-25 05:38 | NURSING ---
Redness observed to LLE, medial thigh firm to touch. Written communication left for Dr. Moon.
[2024-05-25 06:28] LABS: Bedside Glucose 128 mg/dL (74-106)
[2024-05-25 08:03] VITALS: BP 124/56; PULSE 71
[2024-05-25] MEDS: Vibegron 75 MG TABLET PO (08:03)
[2024-05-25] MEDS: Calcium Carb/Vitamin D 1 TABLET Tablet PO (08:03)
[2024-05-25] MEDS: Metoprolol Tartrate 25 MG Tablet PO ×2 (08:03→21:06)
[2024-05-25] MEDS: Aspirin 325 MG Tablet PO (08:03)
[2024-05-25] MEDS: Insulin Lispro 100 UNIT/ML INSULN.PEN 7 UNIT SC ×3 (08:04→17:57)
[2024-05-25] MEDS: Insulin Glargine-YFGN 100 UNIT/ML Pen 15 UNIT SC ×2 (08:04→21:59)
[2024-05-25] MEDS: oxyCODONE 5 MG Tablet PO (08:07)
[2024-05-25] MEDS: Senna/Docusate Sodium 1 Tablet 2 TABLET PO ×2 (11:10→21:04)
[2024-05-25] MEDS: Menthol/Lanolin/Calamine/Znox 113 GM Tube 1 APPLIC TOPICAL ×2 (11:11→21:09)
[2024-05-25 11:28] LABS: Bedside Glucose 172 mg/dL (74-106)
--- NOTE | 2024-05-25 14:51 | NURSING ---
Pt had appt with Chaplaincy today. No new orders. Per pt the firmness in the left leg is a normal part of healing of vein harvest.
[2024-05-25 15:42] VITALS: BP 122/50; PULSE 60; RESP 18; TEMP 36.1; O2SAT 99
[2024-05-25 16:31] LABS: Bedside Glucose 247 mg/dL (74-106)
[2024-05-25 16:46] LABS: Bedside Glucose 119 mg/dL (74-106)
[2024-05-25] MEDS: Atorvastatin Calcium 40 MG Tablet PO (21:04)
[2024-05-25] MEDS: MELATONIN 3 MG TABLET PO (21:04)
[2024-05-25 21:06] VITALS: PULSE 66
[2024-05-25 21:38] LABS: Bedside Glucose 195 mg/dL (74-106)
[2024-05-26] MEDS: Carbidopa/Levodopa 25/100 Tablet PO ×3 (05:48→21:27)
[2024-05-26] MEDS: Acetaminophen 500 MG Tablet 1000 MG PO ×3 (05:48→21:27)
[2024-05-26] MEDS: Enoxaparin 40 MG/0.4 ML Syringe SC (05:54)
[2024-05-26 06:06] LABS: Hemoglobin 9.9 g/dL (13.0-16.5)
[2024-05-26 06:32] LABS: Bedside Glucose 126 mg/dL (74-106)
[2024-05-26 08:08] VITALS: BP 118/47; PULSE 57; RESP 17; TEMP 36.2; O2SAT 100
[2024-05-26] MEDS: Insulin Lispro 100 UNIT/ML INSULN.PEN 7 UNIT SC ×3 (08:11→17:06)
[2024-05-26] MEDS: Insulin Glargine-YFGN 100 UNIT/ML Pen 15 UNIT SC ×2 (08:15→21:32)
[2024-05-26] MEDS: Aspirin 325 MG Tablet PO (08:16)
[2024-05-26] MEDS: Gabapentin 100 MG Capsule PO ×2 (08:16→17:06)
[2024-05-26] MEDS: Ferrous Sulfate 325 MG Tablet PO (08:16)
[2024-05-26 08:17] VITALS: PULSE 57
[2024-05-26] MEDS: Vibegron 75 MG TABLET PO (08:17)
[2024-05-26] MEDS: Metoprolol Tartrate 25 MG Tablet PO ×2 (08:17→21:28)
[2024-05-26] MEDS: Menthol/Lanolin/Calamine/Znox 113 GM Tube 1 APPLIC TOPICAL ×2 (08:17→21:38)
[2024-05-26] MEDS: Calcium Carb/Vitamin D 1 TABLET Tablet PO (08:18)
[2024-05-26] MEDS: Polyethylene Glycol 3350 17 GM PACKET PO (08:18)
[2024-05-26] MEDS: Senna/Docusate Sodium 1 Tablet 2 TABLET PO ×2 (08:18→22:33)
--- NOTE | 2024-05-26 08:20 | MDS.RN ---
Information for the MDS was obtained from review of the clinical record, interview of resident, staff, and direct observation of resident?s care.
[2024-05-26 11:46] LABS: Bedside Glucose 147 mg/dL (74-106)
--- NOTE | 2024-05-26 15:22 | CHAPLAIN ---
Type of Pastoral Visit ___ Initial Visit _x__ Follow-up Visit ___ On-call Visit ___ General Patient Visit ___ Spiritual Assessment ___ Family Conference ___ Bereavement ___ Rapid Response ___ Code Blue ___ Other (describe below) Pastoral Care Referral From _x__ Patient ___ Family ___ Nurse ___ Physician ___ Behaviour Support Teacher ___ Recording Engineer ___ Other (describe below) Sacrament/Intervention _x__ Active listening ___ Anointing ___ Christianity ___ Bereavement ___ Communion _x__ Nancy exploration ___ ___ Life review _x__ Prayer ___ Reconciliation ___ Sacrament of Sick ___ Supportive presence ___ Wedding ___ Other (describe below) Pastoral Comments patient is very talkative and gives insights into his experience and goals for his time in TCU; patient welcomes prayer and presence for his support;
[2024-05-26 16:36] LABS: Bedside Glucose 132 mg/dL (74-106)
--- NOTE | 2024-05-26 17:29 | NURSING ---
pt was very upset- pt states he needs new mask for cpap- this nurse spoke to sw- sw states unable to get cpap mask due to insurance wont cover- sw states family could get one and bring it in- pt states insurance wont cover due to pt being her- this nurse called respiratory- respiratory brought pt new mask- pt gratefull
[2024-05-26 21:21] VITALS: BP 124/57; PULSE 55; RESP 16; O2SAT 100
[2024-05-26 21:22] LABS: Bedside Glucose 123 mg/dL (74-106)
[2024-05-26 21:28] VITALS: BP 124/57; PULSE 55
[2024-05-26] MEDS: Atorvastatin Calcium 40 MG Tablet PO (21:28)
[2024-05-26] MEDS: MELATONIN 3 MG TABLET PO (21:34)
[2024-05-26 21:40] VITALS: PULSE 55; RESP 16; O2SAT 100
--- NOTE | 2024-05-27 01:09 | NURSING ---
Patient c/o some pain on coccyx area. Some redness noted. Sacral mepilex applied. Will continue to monitor.
[2024-05-27] MEDS: Acetaminophen 500 MG Tablet 1000 MG PO ×3 (05:55→21:48)
[2024-05-27] MEDS: Enoxaparin 40 MG/0.4 ML Syringe SC (05:55)
[2024-05-27] MEDS: Carbidopa/Levodopa 25/100 Tablet PO ×3 (05:55→21:48)
[2024-05-27 06:28] LABS: Bedside Glucose 106 mg/dL (74-106)
[2024-05-27 06:31] VITALS: PULSE 65; RESP 16; O2SAT 100
--- NOTE | 2024-05-27 06:39 | NURSING ---
Patient stated he was dizzy this morning when sitting and standing, off balance when ambulating at times. VS taken, WNL. 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 Will continue to monitor.
[2024-05-27 06:40] VITALS: BP 107/58; PULSE 65; RESP 16; O2SAT 100
[2024-05-27 07:04] LABS: Iron 36 ug/dL (65-175); Iron Binding Capacity,Total 258 ug/dL (250-450); Iron Binding Capacity,Unsat 222 ug/dL (228-428)
[2024-05-27] MEDS: Lidocaine 5% Patch 1 PATCH TOPICAL (08:32)
[2024-05-27 08:33] VITALS: PULSE 62
[2024-05-27] MEDS: Vibegron 75 MG TABLET PO (08:33)
[2024-05-27] MEDS: Senna/Docusate Sodium 1 Tablet 2 TABLET PO ×2 (08:33→21:47)
[2024-05-27] MEDS: Polyethylene Glycol 3350 17 GM PACKET PO (08:33)
[2024-05-27] MEDS: Metoprolol Tartrate 25 MG Tablet PO ×2 (08:33→21:47)
[2024-05-27] MEDS: Calcium Carb/Vitamin D 1 TABLET Tablet PO (08:33)
[2024-05-27] MEDS: Aspirin 325 MG Tablet PO (08:33)
[2024-05-27] MEDS: Menthol/Lanolin/Calamine/Znox 113 GM Tube 1 APPLIC TOPICAL ×2 (08:34→21:46)
[2024-05-27] MEDS: Insulin Glargine-YFGN 100 UNIT/ML Pen 15 UNIT SC ×2 (08:36→21:46)
[2024-05-27] MEDS: Insulin Lispro 100 UNIT/ML INSULN.PEN 7 UNIT SC ×3 (08:38→18:16)
[2024-05-27 11:40] VITALS: BP 131/57; PULSE 60; RESP 14; TEMP 36.4; O2SAT 100
[2024-05-27 11:45] LABS: Bedside Glucose 238 mg/dL (74-106)
[2024-05-27 17:39] LABS: Bedside Glucose 98 mg/dL (74-106)
[2024-05-27 21:23] LABS: Bedside Glucose 176 mg/dL (74-106)
[2024-05-27 21:47] VITALS: BP 129/57; PULSE 57
[2024-05-27] MEDS: Atorvastatin Calcium 40 MG Tablet PO (21:47)
[2024-05-27] MEDS: MELATONIN 3 MG TABLET PO (21:53)
[2024-05-28] MEDS: Acetaminophen 500 MG Tablet 1000 MG PO ×3 (06:08→21:58)
[2024-05-28] MEDS: Enoxaparin 40 MG/0.4 ML Syringe SC (06:08)
[2024-05-28] MEDS: Carbidopa/Levodopa 25/100 Tablet PO ×3 (06:08→22:06)
[2024-05-28 06:32] LABS: Bedside Glucose 143 mg/dL (74-106)
[2024-05-28 07:54] VITALS: BP 118/50; PULSE 56; RESP 16; TEMP 36.4; O2SAT 97
[2024-05-28] MEDS: Insulin Lispro 100 UNIT/ML INSULN.PEN 7 UNIT SC ×2 (07:56→12:10)
[2024-05-28] MEDS: Ferrous Sulfate 325 MG Tablet PO (07:57)
[2024-05-28] MEDS: Insulin Glargine-YFGN 100 UNIT/ML Pen 15 UNIT SC (07:57)
[2024-05-28] MEDS: Vibegron 75 MG TABLET PO (07:57)
[2024-05-28] MEDS: Aspirin 325 MG Tablet PO (07:57)
[2024-05-28 07:58] VITALS: PULSE 56
[2024-05-28] MEDS: Lidocaine 5% Patch 1 PATCH TOPICAL (07:58)
[2024-05-28] MEDS: Metoprolol Tartrate 25 MG Tablet PO ×2 (07:58→22:06)
[2024-05-28] MEDS: Polyethylene Glycol 3350 17 GM PACKET PO (07:59)
[2024-05-28] MEDS: Senna/Docusate Sodium 1 Tablet 2 TABLET PO ×2 (07:59→21:57)
[2024-05-28] MEDS: Calcium Carb/Vitamin D 1 TABLET Tablet PO (07:59)
[2024-05-28] MEDS: Menthol/Lanolin/Calamine/Znox 113 GM Tube 1 APPLIC TOPICAL ×2 (08:00→22:03)
[2024-05-28 10:54] VITALS: BMI 33.3
[2024-05-28 11:01] VITALS: PULSE 56; RESP 17; O2SAT 97
[2024-05-28 12:29] LABS: Bedside Glucose 103 mg/dL (74-106)
[2024-05-28 17:41] LABS: Bedside Glucose 101 mg/dL (74-106)
[2024-05-28] MEDS: Insulin Lispro 100 UNIT/ML INSULN.PEN SC (18:23)
--- NOTE | 2024-05-28 20:39 | NURSING ---
Patient c/o vertigo when taking gabapentin as ordered, patient is refusing medication and requesting med be discontinued. Dr. Moon notified of patient request via telephone. New order received to discontinue Gabapentin per pt. request. Order repeated back to Dr. Moon
[2024-05-28 21:38] LABS: Bedside Glucose 146 mg/dL (74-106)
[2024-05-28] MEDS: Atorvastatin Calcium 40 MG Tablet PO (21:57)
[2024-05-28] MEDS: Insulin Glargine-YFGN 100 UNIT/ML Pen 10 UNIT SC (22:01)
[2024-05-28 22:06] VITALS: BP 153/63; PULSE 58
[2024-05-28] MEDS: MELATONIN 3 MG TABLET PO (22:06)
[2024-05-28 22:16] VITALS: BP 153/63; PULSE 58
[2024-05-29] MEDS: Enoxaparin 40 MG/0.4 ML Syringe SC (05:47)
[2024-05-29] MEDS: Acetaminophen 500 MG Tablet 1000 MG PO ×3 (05:47→21:19)
[2024-05-29] MEDS: Carbidopa/Levodopa 25/100 Tablet PO ×3 (05:47→21:19)
[2024-05-29 06:20] LABS: Bedside Glucose 114 mg/dL (74-106)
[2024-05-29] MEDS: Polyethylene Glycol 3350 17 GM PACKET PO (08:26)
[2024-05-29] MEDS: Calcium Carb/Vitamin D 1 TABLET Tablet PO (08:26)
[2024-05-29 08:27] VITALS: BP 109/47; PULSE 60
[2024-05-29] MEDS: Metoprolol Tartrate 25 MG Tablet PO ×2 (08:27→21:21)
[2024-05-29] MEDS: Aspirin 325 MG Tablet PO (08:27)
[2024-05-29] MEDS: Menthol/Lanolin/Calamine/Znox 113 GM Tube 1 APPLIC TOPICAL ×2 (08:27→21:16)
[2024-05-29] MEDS: Senna/Docusate Sodium 1 Tablet 2 TABLET PO ×2 (08:27→21:20)
[2024-05-29] MEDS: Vibegron 75 MG TABLET PO (08:27)
[2024-05-29] MEDS: Insulin Glargine-YFGN 100 UNIT/ML Pen 10 UNIT SC ×2 (08:28→21:17)
[2024-05-29] MEDS: Lidocaine 5% Patch 1 PATCH TOPICAL (08:28)
[2024-05-29 08:29] VITALS: BP 109/47; PULSE 60; RESP 18; TEMP 36.3; O2SAT 100
[2024-05-29] MEDS: Insulin Lispro 100 UNIT/ML INSULN.PEN SC ×3 (08:29→16:59)
[2024-05-29 10:00] VITALS: PULSE 60
--- NOTE | 2024-05-29 10:38 | NURSING ---
Addendum entered by Barbra Magallanes 05/31/24 08:11: Pressure relieving cushion in recliner chair. Original Note: Assess patient buttock, no redness noted at this time. pt reports he can have pain at times d/t old surgical site of a cyst removal. Mepilex in place to assist with protection. Pillow added to wheelchair to assist with comfort.
[2024-05-29 11:48] LABS: Bedside Glucose 159 mg/dL (74-106)
[2024-05-29 16:42] LABS: Bedside Glucose 160 mg/dL (74-106)
--- NOTE | 2024-05-29 20:00 | NURSING ---
Walked patient around unit x 1 prior to bedtime.
[2024-05-29] MEDS: MELATONIN 3 MG TABLET PO (21:18)
[2024-05-29 21:21] VITALS: BP 123/48; PULSE 57
[2024-05-29] MEDS: Atorvastatin Calcium 40 MG Tablet PO (21:21)
[2024-05-29 21:42] LABS: Bedside Glucose 146 mg/dL (74-106)
[2024-05-30] MEDS: Acetaminophen 500 MG Tablet 1000 MG PO ×3 (05:40→21:01)
[2024-05-30] MEDS: Enoxaparin 40 MG/0.4 ML Syringe SC (05:40)
[2024-05-30] MEDS: Carbidopa/Levodopa 25/100 Tablet PO ×3 (05:40→21:02)
[2024-05-30 06:36] LABS: Bedside Glucose 130 mg/dL (74-106)
[2024-05-30 07:55] VITALS: BP 114/57; PULSE 83
[2024-05-30] MEDS: Calcium Carb/Vitamin D 1 TABLET Tablet PO (07:55)
[2024-05-30] MEDS: Metoprolol Tartrate 25 MG Tablet PO ×2 (07:55→21:03)
[2024-05-30] MEDS: Senna/Docusate Sodium 1 Tablet 2 TABLET PO (07:55)
[2024-05-30] MEDS: Vibegron 75 MG TABLET PO (07:55)
[2024-05-30] MEDS: Aspirin 325 MG Tablet PO (07:55)
[2024-05-30] MEDS: Polyethylene Glycol 3350 17 GM PACKET PO (07:55)
[2024-05-30] MEDS: Insulin Lispro 100 UNIT/ML INSULN.PEN SC ×2 (07:56→11:53)
[2024-05-30] MEDS: Insulin Glargine-YFGN 100 UNIT/ML Pen 10 UNIT SC ×2 (07:57→21:11)
[2024-05-30] MEDS: Ferrous Sulfate 325 MG Tablet PO (07:57)
[2024-05-30 08:05] VITALS: BP 114/57; PULSE 83; RESP 16; TEMP 36.2; O2SAT 99
[2024-05-30 10:00] VITALS: BMI 33.3
[2024-05-30] MEDS: Menthol/Lanolin/Calamine/Znox 113 GM Tube 1 APPLIC TOPICAL ×2 (11:56→21:08)
[2024-05-30 12:09] LABS: Bedside Glucose 123 mg/dL (74-106)
[2024-05-30 15:39] VITALS: BP 117/54; PULSE 54; RESP 16; TEMP 35.9; O2SAT 100
--- NOTE | 2024-05-30 15:50 | CHAPLAIN ---
Type of Pastoral Visit ___ Initial Visit _x__ Follow-up Visit ___ On-call Visit ___ General Patient Visit ___ Spiritual Assessment ___ Family Conference ___ Bereavement ___ Rapid Response ___ Code Blue ___ Other (describe below) Pastoral Care Referral From _x__ Patient ___ Family ___ Nurse ___ Physician ___ Set Up Machinist ___ C2 Tactical Analysis Technician ___ Other (describe below) Sacrament/Intervention _x__ Active listening ___ Anointing ___ Yazidism ___ Bereavement ___ Communion _x__ Nancy exploration ___ _x__ Life review _x__ Prayer ___ Reconciliation ___ Sacrament of Sick ___ Supportive presence ___ Wedding ___ Other (describe below) Pastoral Comments
[2024-05-30 16:55] LABS: Bedside Glucose 84 mg/dL (74-106)
[2024-05-30] MEDS: Atorvastatin Calcium 40 MG Tablet PO (21:01)
[2024-05-30 21:03] VITALS: PULSE 61
[2024-05-30] MEDS: MELATONIN 3 MG TABLET PO (21:03)
[2024-05-30 21:28] LABS: Bedside Glucose 157 mg/dL (74-106)
[2024-05-31] MEDS: Enoxaparin 40 MG/0.4 ML Syringe SC (05:43)
[2024-05-31] MEDS: Acetaminophen 500 MG Tablet 1000 MG PO ×3 (05:43→21:26)
[2024-05-31] MEDS: Carbidopa/Levodopa 25/100 Tablet PO ×3 (05:43→21:27)
[2024-05-31 06:10] LABS: Absolute Lymphocyte Count 1.25 X10^3/uL (0.83-4.51); Absolute Neutrophil Count 2.5 X10^3/uL (2.0-7.7); Basophil# 0.04 X10^3/uL; Basophil% 0.9 % (0-1); Eosinophil# 0.17 X10^3/uL; Eosinophils% 3.7 % (0-5); Lymphocyte # 1.25 X10^3/ul (0.83-4.51); Lymphocyte % 27.1 % (19-41); Mean Corp Hgb Conc 31.3 g/dL (32-36); Mean Corpuscular Hgb 27.7 pg (27.0-32.0); Mean Corpuscular Volume 88.6 fL (80-94); Mean Platelet Vol. 9.2 fl (6.2-12.0); Monocyte# 0.57 X10^3/uL; Monocyte% 12.4 % (0-10); NRBC Flagged by Analyzer 0 % (0-5); Neutrophil # 2.54 X10^3/uL (2.7-7.7); Platelet Count 269 K/mm3 (150-450); RBC Distribution Width CV 14.7 % (11.6-14.6); RBC Distribution Width SD 47.5 fl (35.1-43.9); Red Blood Count 3.61 M/mm3 (4.6-6.2); White Blood Count 4.6 K/mm3 (4.4-11.0)
[2024-05-31 06:31] LABS: Bedside Glucose 133 mg/dL (74-106)
[2024-05-31 07:43] LABS: Anion Gap 11 (5-15); BUN 20 mg/dL (4-19); Calcium,Total 8.6 mg/dL (7.6-11.0); Carbon Dioxide 22.1 mmol/L (21.0-32.0); Chloride 105 mmol/L (98-108); Creatinine, Serum 1.04 mg/dL (0.70-1.20); EST Glomerular Filtration Rate 72 (>60); Estimated Creatinine Clearance 58.66 ml/min (50-250); Glucose 118 mg/dL (70-99); Potassium 4.1 mmol/L (3.3-5.1); Sodium Level 138 mmol/L (133-145)
[2024-05-31] MEDS: Insulin Lispro 100 UNIT/ML INSULN.PEN SC ×3 (08:19→17:52)
[2024-05-31] MEDS: Vibegron 75 MG TABLET PO (08:20)
[2024-05-31] MEDS: Aspirin 325 MG Tablet PO (08:20)
[2024-05-31] MEDS: Calcium Carb/Vitamin D 1 TABLET Tablet PO (08:20)
[2024-05-31] MEDS: Senna/Docusate Sodium 1 Tablet 2 TABLET PO ×2 (08:21→21:28)
[2024-05-31] MEDS: Menthol/Lanolin/Calamine/Znox 113 GM Tube 1 APPLIC TOPICAL ×2 (08:26→21:33)
[2024-05-31 10:53] VITALS: BP 116/48; PULSE 57
[2024-05-31] MEDS: Insulin Glargine-YFGN 100 UNIT/ML Pen 10 UNIT SC ×2 (10:53→21:33)
[2024-05-31] MEDS: Metoprolol Tartrate 25 MG Tablet PO (10:53)
[2024-05-31 11:39] LABS: Bedside Glucose 180 mg/dL (74-106)
[2024-05-31] MEDS: Polyethylene Glycol 3350 17 GM PACKET PO (11:56)
[2024-05-31 16:00] VITALS: BP 142/80; PULSE 55; RESP 16; TEMP 37.1; O2SAT 99
[2024-05-31 16:50] LABS: Bedside Glucose 110 mg/dL (74-106)
[2024-05-31] MEDS: MELATONIN 3 MG TABLET PO (21:27)
[2024-05-31] MEDS: Atorvastatin Calcium 40 MG Tablet PO (21:27)
[2024-05-31 21:30] VITALS: PULSE 48
[2024-05-31 21:34] LABS: Bedside Glucose 141 mg/dL (74-106)
[2024-06-01] MEDS: Carbidopa/Levodopa 25/100 Tablet PO ×3 (05:49→21:48)
[2024-06-01] MEDS: Enoxaparin 40 MG/0.4 ML Syringe SC (05:50)
[2024-06-01 06:12] LABS: Bedside Glucose 130 mg/dL (74-106)
[2024-06-01 08:21] VITALS: BP 126/60; PULSE 57; RESP 17; TEMP 36.2; O2SAT 100
[2024-06-01] MEDS: Aspirin 325 MG Tablet PO (08:26)
[2024-06-01] MEDS: Vibegron 75 MG TABLET PO (08:26)
[2024-06-01] MEDS: Ferrous Sulfate 325 MG Tablet PO (08:26)
[2024-06-01] MEDS: Menthol/Lanolin/Calamine/Znox 113 GM Tube 1 APPLIC TOPICAL ×2 (08:26→21:50)
[2024-06-01 08:27] VITALS: PULSE 57
[2024-06-01] MEDS: Polyethylene Glycol 3350 17 GM PACKET PO (08:27)
[2024-06-01] MEDS: Calcium Carb/Vitamin D 1 TABLET Tablet PO (08:27)
[2024-06-01] MEDS: Metoprolol Tartrate 25 MG Tablet PO ×2 (08:27→21:48)
[2024-06-01] MEDS: Insulin Lispro 100 UNIT/ML INSULN.PEN SC ×3 (08:27→17:31)
[2024-06-01] MEDS: Insulin Glargine-YFGN 100 UNIT/ML Pen 10 UNIT SC ×2 (08:28→21:49)
[2024-06-01 11:23] LABS: Bedside Glucose 168 mg/dL (74-106)
[2024-06-01 16:58] LABS: Bedside Glucose 125 mg/dL (74-106)
--- NOTE | 2024-06-01 20:22 | CPS ---
Patient set up with own PAP machine brought in from home for the night.
[2024-06-01 21:25] LABS: Bedside Glucose 149 mg/dL (74-106)
[2024-06-01 21:48] VITALS: BP 134/49; PULSE 60
[2024-06-01] MEDS: MELATONIN 3 MG TABLET PO (21:48)
[2024-06-01] MEDS: Atorvastatin Calcium 40 MG Tablet PO (21:48)
[2024-06-01] MEDS: Senna/Docusate Sodium 1 Tablet 2 TABLET PO (21:48)
[2024-06-01 22:00] VITALS: PULSE 60; RESP 16; O2SAT 93
[2024-06-02] MEDS: Enoxaparin 40 MG/0.4 ML Syringe SC (05:24)
[2024-06-02] MEDS: Carbidopa/Levodopa 25/100 Tablet PO ×3 (05:24→22:22)
[2024-06-02 06:20] LABS: Bedside Glucose 173 mg/dL (74-106)
[2024-06-02 06:30] VITALS: PULSE 62; RESP 18; O2SAT 94
[2024-06-02 07:37] VITALS: BP 114/47; PULSE 50; RESP 17; TEMP 36.3; O2SAT 100
[2024-06-02] MEDS: Insulin Lispro 100 UNIT/ML INSULN.PEN SC ×3 (07:46→17:43)
[2024-06-02] MEDS: Menthol/Lanolin/Calamine/Znox 113 GM Tube 1 APPLIC TOPICAL ×2 (07:47→23:01)
[2024-06-02] MEDS: Aspirin 325 MG Tablet PO (07:47)
[2024-06-02] MEDS: Insulin Glargine-YFGN 100 UNIT/ML Pen 10 UNIT SC ×2 (07:47→22:23)
[2024-06-02] MEDS: Vibegron 75 MG TABLET PO (07:47)
[2024-06-02] MEDS: Calcium Carb/Vitamin D 1 TABLET Tablet PO (07:48)
[2024-06-02] MEDS: Polyethylene Glycol 3350 17 GM PACKET PO (07:48)
--- NOTE | 2024-06-02 09:38 | NURSING ---
notified dr varma pt complaining of pain in upper left leg- leg warm, red, and hard- dr varma order doppler
--- NOTE | 2024-06-02 10:33 | NURSING ---
notified dr varma pt b/p [id number] asked if metoprolol should be held- dr varma said ok to hold
[2024-06-02 11:12] VITALS: PULSE 50
[2024-06-02 11:31] LABS: Bedside Glucose 149 mg/dL (74-106)
[2024-06-02 16:49] LABS: Bedside Glucose 165 mg/dL (74-106)
[2024-06-02 21:19] LABS: Bedside Glucose 200 mg/dL (74-106)
[2024-06-02 22:22] VITALS: BP 129/40; PULSE 62
[2024-06-02] MEDS: Metoprolol Tartrate 25 MG Tablet PO (22:22)
[2024-06-02] MEDS: MELATONIN 3 MG TABLET PO (22:22)
[2024-06-02] MEDS: Atorvastatin Calcium 40 MG Tablet PO (22:23)
[2024-06-03 06:28] LABS: Bedside Glucose 157 mg/dL (74-106)
[2024-06-03] MEDS: Enoxaparin 40 MG/0.4 ML Syringe SC (06:35)
[2024-06-03] MEDS: Carbidopa/Levodopa 25/100 Tablet PO ×3 (06:35→21:48)
[2024-06-03] MEDS: Polyethylene Glycol 3350 17 GM PACKET PO (08:03)
[2024-06-03] MEDS: Insulin Lispro 100 UNIT/ML INSULN.PEN SC ×3 (08:03→17:52)
[2024-06-03] MEDS: Calcium Carb/Vitamin D 1 TABLET Tablet PO (08:03)
[2024-06-03] MEDS: Vibegron 75 MG TABLET PO (08:03)
[2024-06-03] MEDS: Aspirin 325 MG Tablet PO (08:03)
[2024-06-03] MEDS: Ferrous Sulfate 325 MG Tablet PO (08:06)
[2024-06-03] MEDS: Menthol/Lanolin/Calamine/Znox 113 GM Tube 1 APPLIC TOPICAL ×2 (08:10→21:55)
[2024-06-03] MEDS: Insulin Glargine-YFGN 100 UNIT/ML Pen 10 UNIT SC ×2 (08:11→21:52)
[2024-06-03 10:21] VITALS: PULSE 54
[2024-06-03 11:36] LABS: Bedside Glucose 159 mg/dL (74-106)
[2024-06-03 16:00] VITALS: BP 118/41; PULSE 54; RESP 16; TEMP 37.1; O2SAT 100
[2024-06-03 16:50] LABS: Bedside Glucose 160 mg/dL (74-106)
[2024-06-03 21:41] LABS: Bedside Glucose 218 mg/dL (74-106)
[2024-06-03 21:50] VITALS: BP 130/46; PULSE 54
[2024-06-03] MEDS: Atorvastatin Calcium 40 MG Tablet PO (21:51)
[2024-06-03] MEDS: MELATONIN 3 MG TABLET PO (21:51)
[2024-06-03] MEDS: Senna/Docusate Sodium 1 Tablet 2 TABLET PO (21:52)
[2024-06-04] MEDS: Carbidopa/Levodopa 25/100 Tablet PO ×3 (05:44→20:47)
[2024-06-04] MEDS: Enoxaparin 40 MG/0.4 ML Syringe SC (05:45)
[2024-06-04 06:32] LABS: Bedside Glucose 174 mg/dL (74-106)
--- NOTE | 2024-06-04 08:15 | NURSING ---
Dr. Moon update on Metoprolol 25mg has been held x2 doses d/t low heart rate. N.O. received to decrease Metoprolol to 12.5 mg BID and change heart rate to hold if less than 55. Order read back.
[2024-06-04] MEDS: Insulin Glargine-YFGN 100 UNIT/ML Pen 10 UNIT SC ×2 (08:22→21:57)
[2024-06-04] MEDS: Insulin Lispro 100 UNIT/ML INSULN.PEN SC ×3 (08:23→17:32)
[2024-06-04] MEDS: Senna/Docusate Sodium 1 Tablet 2 TABLET PO ×2 (08:29→20:49)
[2024-06-04] MEDS: Calcium Carb/Vitamin D 1 TABLET Tablet PO (08:29)
[2024-06-04] MEDS: Vibegron 75 MG TABLET PO (08:29)
[2024-06-04] MEDS: Aspirin 325 MG Tablet PO (08:29)
[2024-06-04] MEDS: Polyethylene Glycol 3350 17 GM PACKET PO (08:30)
[2024-06-04 09:44] VITALS: BP 111/54; PULSE 67
[2024-06-04] MEDS: Metoprolol Tartrate 25 MG Tablet 12.5 MG PO ×2 (09:44→20:48)
[2024-06-04] MEDS: Menthol/Lanolin/Calamine/Znox 113 GM Tube 1 APPLIC TOPICAL ×2 (09:45→20:50)
[2024-06-04 11:50] LABS: Bedside Glucose 202 mg/dL (74-106)
[2024-06-04 15:47] VITALS: BP 124/51; PULSE 54; RESP 16; TEMP 36.2; O2SAT 100
[2024-06-04 16:57] LABS: Bedside Glucose 149 mg/dL (74-106)
[2024-06-04 20:48] VITALS: BP 114/57; PULSE 57
[2024-06-04] MEDS: Atorvastatin Calcium 40 MG Tablet PO (20:48)
[2024-06-04] MEDS: MELATONIN 3 MG TABLET PO (20:49)
[2024-06-04 22:11] LABS: Bedside Glucose 232 mg/dL (74-106)
[2024-06-05] MEDS: Carbidopa/Levodopa 25/100 Tablet PO ×3 (05:44→22:07)
[2024-06-05] MEDS: Enoxaparin 40 MG/0.4 ML Syringe SC (05:44)
[2024-06-05 06:15] LABS: Bedside Glucose 193 mg/dL (74-106)
[2024-06-05 08:35] VITALS: BP 135/51; PULSE 65; RESP 16; TEMP 36.6; O2SAT 100
[2024-06-05] MEDS: Insulin Lispro 100 UNIT/ML INSULN.PEN SC ×3 (08:38→17:27)
[2024-06-05] MEDS: Aspirin 325 MG Tablet PO (08:38)
[2024-06-05] MEDS: Insulin Glargine-YFGN 100 UNIT/ML Pen 10 UNIT SC ×2 (08:39→22:05)
[2024-06-05] MEDS: Ferrous Sulfate 325 MG Tablet PO (08:39)
[2024-06-05] MEDS: Vibegron 75 MG TABLET PO (08:39)
[2024-06-05 08:40] VITALS: PULSE 65
[2024-06-05] MEDS: Metoprolol Tartrate 25 MG Tablet 12.5 MG PO (08:40)
[2024-06-05] MEDS: Senna/Docusate Sodium 1 Tablet 2 TABLET PO ×2 (08:41→22:03)
[2024-06-05] MEDS: Calcium Carb/Vitamin D 1 TABLET Tablet PO (08:41)
[2024-06-05] MEDS: Polyethylene Glycol 3350 17 GM PACKET PO (08:41)
[2024-06-05] MEDS: Menthol/Lanolin/Calamine/Znox 113 GM Tube 1 APPLIC TOPICAL ×2 (08:43→22:10)
[2024-06-05 10:12] VITALS: PULSE 65; RESP 18; O2SAT 100
[2024-06-05 11:34] LABS: Bedside Glucose 205 mg/dL (74-106)
[2024-06-05 16:48] LABS: Bedside Glucose 135 mg/dL (74-106)
[2024-06-05 21:27] LABS: Bedside Glucose 176 mg/dL (74-106)
[2024-06-05] MEDS: Atorvastatin Calcium 40 MG Tablet PO (22:03)
[2024-06-05 22:05] VITALS: BP 125/50; PULSE 53
[2024-06-05] MEDS: MELATONIN 3 MG TABLET PO (22:10)
[2024-06-06] MEDS: Enoxaparin 40 MG/0.4 ML Syringe SC (05:20)
[2024-06-06] MEDS: Carbidopa/Levodopa 25/100 Tablet PO ×3 (05:21→21:56)
[2024-06-06 06:34] LABS: Bedside Glucose 175 mg/dL (74-106)
[2024-06-06 07:52] VITALS: BP 118/57; PULSE 65; RESP 16; TEMP 36.6; O2SAT 99
[2024-06-06 08:08] VITALS: BP 124/43; PULSE 59; RESP 16; TEMP 36.1; O2SAT 100
[2024-06-06] MEDS: Vibegron 75 MG TABLET PO (08:10)
[2024-06-06] MEDS: Aspirin 325 MG Tablet PO (08:10)
[2024-06-06 08:11] VITALS: PULSE 59
[2024-06-06] MEDS: Senna/Docusate Sodium 1 Tablet 2 TABLET PO ×2 (08:11→21:56)
[2024-06-06] MEDS: Insulin Lispro 100 UNIT/ML INSULN.PEN SC ×3 (08:11→17:22)
[2024-06-06] MEDS: Calcium Carb/Vitamin D 1 TABLET Tablet PO (08:11)
[2024-06-06] MEDS: Metoprolol Tartrate 25 MG Tablet 12.5 MG PO ×2 (08:11→21:55)
[2024-06-06] MEDS: Polyethylene Glycol 3350 17 GM PACKET PO (08:11)
[2024-06-06] MEDS: Insulin Glargine-YFGN 100 UNIT/ML Pen 10 UNIT SC ×2 (08:13→21:53)
[2024-06-06] MEDS: Menthol/Lanolin/Calamine/Znox 113 GM Tube 1 APPLIC TOPICAL ×2 (08:14→21:51)
[2024-06-06 10:00] VITALS: BMI 32.7
[2024-06-06 11:26] LABS: Bedside Glucose 156 mg/dL (74-106)
[2024-06-06 13:11] VITALS: PULSE 65; RESP 16; O2SAT 99
--- NOTE | 2024-06-06 14:52 | CASEMGMT ---
Addendum entered by Monie Mcwilliams 06/07/24 08:35: Pt requesting [facility]. SW educated HHC will contact pt within 2-3 days after DC pending PCP signing orders. CHANTEL phoned referral. Addendum entered by Monie Mcwilliams 06/06/24 15:30: Pt spoke with this worker and requested to set DC for 06/10 and to have skilled HHC. SW provided list of skilled HHC agencies within geographical area, INN with insurance, that include quality and resource data via [employer] guide. Pt to review and notify this worker of preferences. Plan: DC home with 06/10, HHC PT/OT/SN Monie [facility]ILDERS Original Note: Social Work SW met with patient to discuss pt's request to set DC date. IDT agreeable to set date. has been active in therapy sessions and agreed she can care for pt with current needs. Pt is understanding he will need to continue using FWW at DC. Pt confirmed he has a walker at home. SW offered HHC vs OP therapy. Pt expressed wanting recommendations on home modifications and grab bar placement. SW educated to HHC role. Also noted [facility] office supervisor likely to order cardiac rehab after f/u visit. Pt can start with HHC then transition to cardiac rehab. Pt agreed. Pt will discuss final plans and date with , then notify this worker. SW will continue to follow. Monie CHILDERS
[2024-06-06 15:07] LABS: Pathologist Review Reviewed
[2024-06-06 16:40] LABS: Bedside Glucose 137 mg/dL (74-106)
--- NOTE | 2024-06-06 19:12 | DS.PCM_ITS ---
Providers Date of Admission: 05/16/24 Primary Care Physician: Dr. Fredis Moon MD Reason For Visit: CABG X 3 Diagnosis Discharge Diagnosis (1) Debility: Status: Acute Code(s): R53.81 - Other malaise (2) Coronary artery disease: Status: Acute Code(s): I25.10 - Atherosclerotic heart disease of [place] coronary artery without angina pectoris (3) Status post three vessel coronary artery bypass: Status: Acute Code(s): Z95.1 - Presence of aortocoronary bypass graft (4) Type 2 diabetes mellitus with hyperglycemia: Status: Acute Code(s): E11.65 - Type 2 diabetes mellitus with hyperglycemia (5) Parkinson disease: Status: Acute Code(s): G20.A1 - Parkinson's disease without dyskinesia, without mention of fluctuations (6) Malignant neoplasm of prostate: Status: Acute Code(s): C61 - Malignant neoplasm of prostate (7) Diabetic polyneuropathy: Status: Acute Code(s): E11.42 - Type 2 diabetes mellitus with diabetic polyneuropathy (8) Essential (primary) hypertension: Status: Acute Code(s): I10 - Essential (primary) hypertension (9) Hyperlipidemia, unspecified: Status: Acute Code(s): E78.5 - Hyperlipidemia, unspecified (10) Sleep apnea, obstructive: Status: Chronic Code(s): G47.33 - Obstructive sleep apnea (adult) (pediatric) (11) Overactive bladder: Status: Acute Code(s): N32.81 - Overactive bladder Plan 84 year old male with below past medical history significant for multi vessel coronary artery disease hospitalized for cabg x 3 05/10/[address] Velasco, postoperative course complicated by hypotension, admitted to TCU with debility, here for rehabilitation, strengthening, prior to discharge home with . * Debility - PT/OT. * Dysphagia - ST. * Pain - Tylenol 1000mg q8, Oxycodone 5mg q4 prn pain (4-10), Lidoderm 1 patch td daily. * Bowel - Miralax 17gm daily, senna/colace 2 tablets bid, Magnesium citrate 300mL po daily prn. * Adult immunization - Administer pneumonia vaccine, covid vaccine, flu vaccine as appropriate. * DVT prophylaxis - Lovenox 40mg sc daily. * Coronary artery disease s/p cabg x 3 - Metoprolol 25mg bid, Aspirin 325mg daily. * Hyperlipidemia - Atorvastatin 40mg qhs. * Calcium deficiency - Calcium D 1 tablet daily. * Parkinson Disease - Sinemet 25/100mg tid. * Iron deficiency anemia - Ferrous sulfate 325mg every other day. * Edema - Furosemide 40mg daily thru 05/24/2024, KCL 40meq daily thru 05/24/2024. * Diabetes Mellitus II - Glargine 32 units qam, Humalog 14 units tidcm. * Tinea Corporis - Miconazole topical bid prn. * Dry Eyes - Artificial tears 1gtt ou tid prn. * Overactive bladder - Gemtesa 75mg daily. Medications at Discharge Home Medications calcium 500 mg (as carbonate)-vitamin D3 200 unit-vit K2 90 mcg tablet 1 tab PO DAILY supplement 12/20/17 empagliflozin 25 mg tablet (Jardiance) 25 mg PO DAILY 12/20/17 carbidopa 25 mg-levodopa 100 mg tablet 1 tab PO TID Parkinsons 01/12/20 insulin glargine 100 unit-lixisenatide 33 mcg/mL subcutaneous pen (Soliqua 100/33) 32 unit subcut QAM diabetes 01/21/22 vibegron 75 mg tablet (Gemtesa) 75 mg PO DAILY bladder 01/21/22 aspirin 81 mg tablet,delayed release (Adult Aspirin Regimen) 325 mg PO QDAY blood thinner 05/16/24 atorvastatin 10 mg tablet 40 mg PO QDAY cholesterol 05/16/24 ferrous sulfate 325 mg (65 mg iron) tablet (FeroSul) 325 mg PO QODAY iron supplement 05/16/24 potassium chloride 20 mEq tablet,extended release (K-Tab) 40 meq PO DAILY supplement 05/16/24 melatonin 3 mg tablet 3 mg PO QHS #0 tabs 06/06/24 metoprolol tartrate 25 mg tablet 12.5 mg (1/2 x 25 mg) PO BID 30 days #30 tabs 06/06/24 Hospital Course Operations - (CABG x 3.) Procedures None Summary of Care Provided Minutes Spent on Discharge: 35 Hospital Course: 84 year old male with below past medical history significant for multi vessel coronary artery disease hospitalized for cabg x 3 05/10/[address] Velasco, postoperative course complicated by hypotension, admitted to TCU with debility, here for rehabilitation, strengthening, prior to discharge home with . Resident had swelling of left lower extremity. DVT ruled out, but he has left medial thigh seroma versus hematoma, treated with warm compresses. Discharge home with 06/10/2024, [facility] PT/OT/SN. Physical Exam Const alert General Appearance: cooperative HEENT normocephalic Eyes PERRL and EOMs intact bilaterally Neck supple, no JVD and no carotid bruits Resp normal respiratory effort, normal air movement and clear to auscultation bilaterally Cardio regular rate and regular rhythm GI normal to inspection, nondistended, normoactive bowel sounds, non-tender and non-distended Extremity normal capillary refill General Extremity: Negative for edema Skin no rashes or lesions noted General Skin Exam: no breakdown Psych affect normal Appearance: appropriate Weight / BMI Weight Weight: 91.898 kg Body Mass Index (BMI) 32.7 ABG / Lab / Microbiology Data 05/31/24 05:17 05/31/24 05:17 Laboratory: Laboratory Results - last 24 hr 05/17/24 05:19: Diff Path Review Reviewed 06/05/24 21:07: POC Glucose 176 H 06/06/24 05:52: POC Glucose 175 H 06/06/24 11:06: POC Glucose 156 H 06/06/24 16:14: POC Glucose 137 H Microbiology: Microbiology 05/23/24 09:20 Stool Stool Occult Blood (KERLINE) - Final D/C Instructions Discharge Diet: No restrictions Discharge Activity: Return to Normal Activity, May Shower and Use Walker Weight Bearing Status: Weight bearing as tolerated Call your doctor if you observe: Fever of 101 or Higher, Inability to urinate, Inability to have a bowel movement, Shortness of breath, Dizziness, Fainting spells, Swelling in the ankles, Chest pain and Uncontrolled pain DC O2, CPAP, BIPAP Needs Home O2 Discharge instructions: No Additional Instructions: Discharge home with 06/10/2024, [facility] PT/OT/SN. Please Follow Up With: Cardiology- Vin Handy CNP When: As scheduled. Meaningful Use Info Meaningful Use Meaningful Use Diagnoses (Choose all that apply): None applicable Ischemic Stroke Statin Dosing Therapy Reference: STATIN DOSE THERAPY REFERENCE: * Patients > 75 years receive moderate or high dose statin therapy. * Patients 75 years or YOUNGER should receive HIGH intensity statin dose unless contraindicated. You will be required to document reason for non-treatment if statin daily dose does not meet guidelines. HIGH DOSE STATIN THERAPY DAILY Atorvastatin > than or = to 40 mg Rosuvastatin > than or = to 20 mg Amlodipine + Atorvastatin > than or = to 2.5/40 mg Ezetimibe + Simvastatin 10/80 mg Simvastatin 80mg Discharge Plan Admission Admit Date/Time: 05/16/24 12:37 Primary Reason for Your Visit: Debility. Attending Provider: Fredis Moon Chi Primary Care Provider: Fredis Moon Chi Instructions Additional Instructions / Restrictions: Discharge home with 06/10/2024, [facility] PT/OT/SN. Discharge Orders/Prescriptions Prescriptions: New melatonin 3 mg Tablet 3 mg PO QHS Qty: 0 0RF metoprolol tartrate 25 mg Tablet 12.5 mg PO BID 30 Days Qty: 30 0RF Continued Jardiance 25 mg tablet 25 mg PO DAILY calcium carb-vitamin D3-vit K2 500 mg calcium- 200 unit-90 mcg tablet 1 tab PO DAILY carbidopa-levodopa 25-100 mg tablet 1 tab PO TID Soliqua 100/33 100 unit-33 mcg/mL insulin pen 32 unit subcut QAM Gemtesa 75 mg tablet 75 mg PO DAILY ferrous sulfate [FeroSul] 325 mg (65 mg iron) tablet 325 mg PO QODAY potassium chloride [K-Tab] 20 mEq tablet extended release 40 meq PO DAILY atorvastatin 10 mg tablet 40 mg PO QDAY aspirin [Adult Aspirin Regimen] 81 mg tablet,delayed release (DR/EC) 325 mg PO QDAY Discontinued triamcinolone acetonide 0.1 % cream 1 applic TOPICAL DAILY PRN (Reason: SKIN) metoprolol succinate [Toprol XL] 25 mg tablet extended release 24 hr 12.5 mg PO DAILY metformin 1,000 mg tablet 1,000 mg PO BID Rx Instructions: hold for 48 hrs. resume 04/26/24 acetaminophen 500 mg capsule 1,000 mg PO Q8 furosemide 40 mg tablet 40 mg PO DAILY insulin lispro 100 unit/mL insulin pen 14 unit subcut TID Artificial Tears(vk-tcha-asrc) 1-0.2-0.2 % drops 1 drp EACH EYE TID PRN (Reason: dry eyes) metoprolol tartrate 25 mg tablet 25 mg PO BID miconazole nitrate [Antifungal (miconazole)] 2 % cream 1 applic topical BID PRN (Reason: affected area) oxycodone 5 mg tablet 5 mg PO Q6H PRN (Reason: pain) Rx Instructions: Pain 7-10 amlodipine 5 mg tablet 5 mg PO QDAY Qty: 30 9RF Referrals / Follow Up: Fredis Moon Chi, MD [Primary Care Provider] - Disposition Disposition (needs filled in before D/C Order can be placed): Home Health Service
[2024-06-06 21:36] LABS: Bedside Glucose 175 mg/dL (74-106)
[2024-06-06 21:55] VITALS: BP 139/53; PULSE 57
[2024-06-06] MEDS: MELATONIN 3 MG TABLET PO (21:56)
[2024-06-06] MEDS: Atorvastatin Calcium 40 MG Tablet PO (21:56)
[2024-06-07] MEDS: Enoxaparin 40 MG/0.4 ML Syringe SC (05:28)
[2024-06-07] MEDS: Carbidopa/Levodopa 25/100 Tablet PO ×3 (05:28→20:36)
[2024-06-07 05:49] LABS: Absolute Lymphocyte Count 1.28 X10^3/uL (0.83-4.51); Absolute Neutrophil Count 2.9 X10^3/uL (2.0-7.7); Basophil# 0.04 X10^3/uL; Basophil% 0.8 % (0-1); Eosinophil# 0.22 X10^3/uL; Eosinophils% 4.3 % (0-5); Hematocrit 31.7 % (40-54); Hemoglobin 10.3 g/dL (13.0-16.5); Lymphocyte # 1.28 X10^3/ul (0.83-4.51); Mean Corp Hgb Conc 32.5 g/dL (32-36); Mean Corpuscular Hgb 28.2 pg (27.0-32.0); Mean Corpuscular Volume 86.8 fL (80-94); Mean Platelet Vol. 9.6 fl (6.2-12.0); Monocyte# 0.68 X10^3/uL; Monocyte% 13.3 % (0-10); NRBC Flagged by Analyzer 0 % (0-5); Neutrophil # 2.86 X10^3/uL (2.7-7.7); Neutrophil % 55.8 % (47-70); Platelet Count 169 K/mm3 (150-450); RBC Distribution Width CV 14.6 % (11.6-14.6); RBC Distribution Width SD 46.5 fl (35.1-43.9); Red Blood Count 3.65 M/mm3 (4.6-6.2); White Blood Count 5.1 K/mm3 (4.4-11.0)
[2024-06-07 06:19] LABS: Bedside Glucose 144 mg/dL (74-106)
[2024-06-07 06:50] LABS: Anion Gap 11 (5-15); BUN 20 mg/dL (4-19); BUN/Creat Ratio 20.8 RATIO (10-20); Calcium,Total 8.6 mg/dL (7.6-11.0); Carbon Dioxide 21.6 mmol/L (21.0-32.0); Chloride 105 mmol/L (98-108); Creatinine, Serum 0.95 mg/dL (0.70-1.20); EST Glomerular Filtration Rate 80 (>60); Estimated Creatinine Clearance 63.63 ml/min (50-250); Glucose 157 mg/dL (70-99); Potassium 4.3 mmol/L (3.3-5.1); Sodium Level 138 mmol/L (133-145)
[2024-06-07 08:26] VITALS: BP 109/74; PULSE 51; RESP 17; TEMP 36.3; O2SAT 95
[2024-06-07 08:31] VITALS: PULSE 51
[2024-06-07] MEDS: Insulin Lispro 100 UNIT/ML INSULN.PEN SC ×3 (08:33→17:37)
[2024-06-07] MEDS: Insulin Glargine-YFGN 100 UNIT/ML Pen 10 UNIT SC ×2 (08:34→22:13)
[2024-06-07] MEDS: Menthol/Lanolin/Calamine/Znox 113 GM Tube 1 APPLIC TOPICAL ×2 (08:34→20:36)
[2024-06-07] MEDS: Calcium Carb/Vitamin D 1 TABLET Tablet PO (08:35)
[2024-06-07] MEDS: Aspirin 325 MG Tablet PO (08:35)
[2024-06-07] MEDS: Ferrous Sulfate 325 MG Tablet PO (08:35)
[2024-06-07] MEDS: Vibegron 75 MG TABLET PO (08:35)
[2024-06-07] MEDS: Senna/Docusate Sodium 1 Tablet 2 TABLET PO (08:35)
[2024-06-07] MEDS: Polyethylene Glycol 3350 17 GM PACKET PO (08:36)
[2024-06-07 11:43] LABS: Bedside Glucose 219 mg/dL (74-106)
[2024-06-07 17:23] LABS: Bedside Glucose 151 mg/dL (74-106)
[2024-06-07] MEDS: Atorvastatin Calcium 40 MG Tablet PO (20:36)
[2024-06-07] MEDS: MELATONIN 3 MG TABLET PO (20:37)
[2024-06-07 21:47] LABS: Bedside Glucose 179 mg/dL (74-106)
[2024-06-08] MEDS: Enoxaparin 40 MG/0.4 ML Syringe SC (06:09)
[2024-06-08] MEDS: Carbidopa/Levodopa 25/100 Tablet PO ×3 (06:09→20:23)
[2024-06-08 06:13] LABS: Bedside Glucose 144 mg/dL (74-106)
[2024-06-08 08:03] VITALS: BP 131/64; PULSE 60
[2024-06-08] MEDS: Insulin Glargine-YFGN 100 UNIT/ML Pen 10 UNIT SC ×2 (08:03→22:05)
[2024-06-08] MEDS: Metoprolol Tartrate 25 MG Tablet 12.5 MG PO (08:03)
[2024-06-08] MEDS: Insulin Lispro 100 UNIT/ML INSULN.PEN SC ×3 (08:03→17:59)
[2024-06-08] MEDS: Calcium Carb/Vitamin D 1 TABLET Tablet PO (08:04)
[2024-06-08] MEDS: Menthol/Lanolin/Calamine/Znox 113 GM Tube 1 APPLIC TOPICAL ×2 (08:04→20:22)
[2024-06-08] MEDS: Polyethylene Glycol 3350 17 GM PACKET PO (08:04)
[2024-06-08] MEDS: Aspirin 325 MG Tablet PO (08:04)
[2024-06-08] MEDS: Vibegron 75 MG TABLET PO (08:04)
[2024-06-08 11:37] LABS: Bedside Glucose 162 mg/dL (74-106)
--- NOTE | 2024-06-08 13:04 | CASEMGMT ---
Addendum entered by Monie Mcwilliams 06/12/24 16:01: Pt is requesting a FWW. SW sent referral to [facility] to be delivered to pt's room prior to DC. Original Note: Social Work Pt notified this worker that tested positive for PNA and he spoke with his and two daughters. All are concerned about pt discharging home while is sick as she is going to be providing the care to pt. SW discussed postponing DC so pt can DC home. Pt agreed. IDT agreed to delay DC and SW offered new DC for 06/14. Pt agreed and appreciative. Pt will DC home. - CHANTEL updated IDT and [facility]. 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
[2024-06-08 14:02] VITALS: BP 105/46; PULSE 54; RESP 12; TEMP 36.7; O2SAT 98
[2024-06-08 16:35] LABS: Bedside Glucose 172 mg/dL (74-106)
[2024-06-08] MEDS: Atorvastatin Calcium 40 MG Tablet PO (20:23)
[2024-06-08] MEDS: MELATONIN 3 MG TABLET PO (20:24)
[2024-06-08 20:27] VITALS: BP 120/44; PULSE 53
[2024-06-08 21:21] LABS: Bedside Glucose 241 mg/dL (74-106)
[2024-06-09] MEDS: Carbidopa/Levodopa 25/100 Tablet PO ×3 (05:23→21:24)
[2024-06-09] MEDS: Enoxaparin 40 MG/0.4 ML Syringe SC (05:23)
[2024-06-09 06:32] LABS: Bedside Glucose 178 mg/dL (74-106)
[2024-06-09 07:59] VITALS: BP 119/48; PULSE 62; RESP 17; TEMP 36; O2SAT 100
[2024-06-09] MEDS: Aspirin 325 MG Tablet PO (08:03)
[2024-06-09] MEDS: Insulin Lispro 100 UNIT/ML INSULN.PEN SC ×3 (08:03→17:33)
[2024-06-09] MEDS: Menthol/Lanolin/Calamine/Znox 113 GM Tube 1 APPLIC TOPICAL ×2 (08:03→21:19)
[2024-06-09] MEDS: Ferrous Sulfate 325 MG Tablet PO (08:04)
[2024-06-09] MEDS: Vibegron 75 MG TABLET PO (08:04)
[2024-06-09] MEDS: Insulin Glargine-YFGN 100 UNIT/ML Pen 10 UNIT SC ×2 (08:04→21:19)
[2024-06-09 08:05] VITALS: PULSE 55
[2024-06-09] MEDS: Metoprolol Tartrate 25 MG Tablet 12.5 MG PO (08:05)
[2024-06-09] MEDS: Calcium Carb/Vitamin D 1 TABLET Tablet PO (08:06)
[2024-06-09] MEDS: Polyethylene Glycol 3350 17 GM PACKET PO (08:06)
[2024-06-09] MEDS: Senna/Docusate Sodium 1 Tablet 2 TABLET PO ×2 (08:06→21:23)
[2024-06-09 11:49] LABS: Bedside Glucose 183 mg/dL (74-106)
[2024-06-09 17:37] LABS: Bedside Glucose 236 mg/dL (74-106)
[2024-06-09 21:00] VITALS: PULSE 53; RESP 16; O2SAT 96
[2024-06-09 21:12] LABS: Bedside Glucose 195 mg/dL (74-106)
[2024-06-09 21:17] VITALS: BP 112/45; PULSE 53
[2024-06-09 21:22] VITALS: BP 112/45; PULSE 53
[2024-06-09] MEDS: Atorvastatin Calcium 40 MG Tablet PO (21:22)
[2024-06-09] MEDS: MELATONIN 3 MG TABLET PO (21:23)
[2024-06-10] MEDS: Enoxaparin 40 MG/0.4 ML Syringe SC (05:35)
[2024-06-10] MEDS: Carbidopa/Levodopa 25/100 Tablet PO ×3 (05:35→21:25)
[2024-06-10 06:15] LABS: Bedside Glucose 189 mg/dL (74-106)
[2024-06-10 06:41] VITALS: PULSE 68; RESP 16; O2SAT 99
[2024-06-10] MEDS: Insulin Lispro 100 UNIT/ML INSULN.PEN SC ×3 (07:43→17:53)
[2024-06-10 07:49] VITALS: BP 149/80; PULSE 72; RESP 16; TEMP 36.4; O2SAT 99
[2024-06-10] MEDS: Aspirin 325 MG Tablet PO (07:52)
[2024-06-10] MEDS: Menthol/Lanolin/Calamine/Znox 113 GM Tube 1 APPLIC TOPICAL ×2 (07:52→21:27)
[2024-06-10] MEDS: Vibegron 75 MG TABLET PO (07:52)
[2024-06-10] MEDS: Insulin Glargine-YFGN 100 UNIT/ML Pen 10 UNIT SC ×2 (07:53→22:18)
[2024-06-10 07:54] VITALS: PULSE 72
[2024-06-10] MEDS: Polyethylene Glycol 3350 17 GM PACKET PO (07:54)
[2024-06-10] MEDS: Metoprolol Tartrate 25 MG Tablet 12.5 MG PO (07:54)
[2024-06-10] MEDS: Calcium Carb/Vitamin D 1 TABLET Tablet PO (07:55)
[2024-06-10] MEDS: Senna/Docusate Sodium 1 Tablet 2 TABLET PO ×2 (07:55→21:25)
--- NOTE | 2024-06-10 10:21 | NURSING ---
Call placed to Dr. Moon. Patient not using lidocaine patches. Per Dr. Moon Discontinue lidocaine patches. VORB.
[2024-06-10 11:20] LABS: Bedside Glucose 200 mg/dL (74-106)
[2024-06-10 16:48] LABS: Bedside Glucose 149 mg/dL (74-106)
[2024-06-10] MEDS: MELATONIN 3 MG TABLET PO (21:25)
[2024-06-10 21:26] VITALS: BP 108/48; PULSE 53
[2024-06-10] MEDS: Atorvastatin Calcium 40 MG Tablet PO (21:26)
[2024-06-10 22:01] LABS: Bedside Glucose 187 mg/dL (74-106)
[2024-06-11] MEDS: Carbidopa/Levodopa 25/100 Tablet PO ×3 (06:08→21:45)
[2024-06-11] MEDS: Enoxaparin 40 MG/0.4 ML Syringe SC (06:08)
[2024-06-11 06:34] LABS: Bedside Glucose 195 mg/dL (74-106)
[2024-06-11] MEDS: Insulin Lispro 100 UNIT/ML INSULN.PEN SC ×3 (08:27→17:45)
[2024-06-11] MEDS: Aspirin 325 MG Tablet PO (08:28)
[2024-06-11] MEDS: Ferrous Sulfate 325 MG Tablet PO (08:29)
[2024-06-11] MEDS: Vibegron 75 MG TABLET PO (08:30)
[2024-06-11] MEDS: Calcium Carb/Vitamin D 1 TABLET Tablet PO (08:31)
[2024-06-11] MEDS: Polyethylene Glycol 3350 17 GM PACKET PO (08:31)
[2024-06-11] MEDS: Senna/Docusate Sodium 1 Tablet 2 TABLET PO ×2 (08:31→21:45)
[2024-06-11] MEDS: Insulin Glargine-YFGN 100 UNIT/ML Pen 10 UNIT SC ×2 (08:32→21:46)
[2024-06-11] MEDS: Menthol/Lanolin/Calamine/Znox 113 GM Tube 1 APPLIC TOPICAL ×2 (08:37→21:39)
[2024-06-11 08:42] VITALS: BP 134/48; PULSE 54
[2024-06-11 11:27] LABS: Bedside Glucose 193 mg/dL (74-106)
[2024-06-11 15:56] VITALS: BP 134/48; PULSE 54; RESP 16; TEMP 36.6; O2SAT 100
[2024-06-11 17:09] LABS: Bedside Glucose 190 mg/dL (74-106)
[2024-06-11 21:34] LABS: Bedside Glucose 221 mg/dL (74-106)
[2024-06-11 21:44] VITALS: BP 110/51; PULSE 52
[2024-06-11] MEDS: Atorvastatin Calcium 40 MG Tablet PO (21:45)
[2024-06-11] MEDS: MELATONIN 3 MG TABLET PO (21:46)
[2024-06-11 21:50] VITALS: PULSE 53; RESP 16; O2SAT 98
[2024-06-12] MEDS: Carbidopa/Levodopa 25/100 Tablet PO ×3 (05:59→22:31)
[2024-06-12] MEDS: Enoxaparin 40 MG/0.4 ML Syringe SC (06:00)
[2024-06-12 06:16] VITALS: PULSE 58; RESP 16; O2SAT 98
[2024-06-12 06:28] LABS: Bedside Glucose 177 mg/dL (74-106)
[2024-06-12] MEDS: Insulin Lispro 100 UNIT/ML INSULN.PEN SC ×3 (07:34→17:49)
[2024-06-12 07:35] VITALS: PULSE 66
[2024-06-12] MEDS: Metoprolol Tartrate 25 MG Tablet 12.5 MG PO ×2 (07:35→22:33)
[2024-06-12] MEDS: Calcium Carb/Vitamin D 1 TABLET Tablet PO (07:36)
[2024-06-12] MEDS: Aspirin 325 MG Tablet PO (07:36)
[2024-06-12] MEDS: Vibegron 75 MG TABLET PO (07:36)
[2024-06-12] MEDS: Senna/Docusate Sodium 1 Tablet 2 TABLET PO ×2 (07:36→22:31)
[2024-06-12] MEDS: Insulin Glargine-YFGN 100 UNIT/ML Pen 10 UNIT SC ×2 (07:37→22:29)
[2024-06-12] MEDS: Polyethylene Glycol 3350 17 GM PACKET PO (07:37)
[2024-06-12] MEDS: Menthol/Lanolin/Calamine/Znox 113 GM Tube 1 APPLIC TOPICAL ×2 (07:38→22:32)
[2024-06-12 11:28] LABS: Bedside Glucose 200 mg/dL (74-106)
[2024-06-12 15:26] VITALS: BP 147/52; PULSE 66; RESP 16; TEMP 36.8; O2SAT 98
--- NOTE | 2024-06-12 15:50 | CHAPLAIN ---
Type of Pastoral Visit ___ Initial Visit _x__ Follow-up Visit ___ On-call Visit ___ General Patient Visit ___ Spiritual Assessment ___ Family Conference ___ Bereavement ___ Rapid Response ___ Code Blue ___ Other (describe below) Pastoral Care Referral From _x__ Patient ___ Family ___ Nurse ___ Physician ___ Community Sports Coordinator ___ Electrolytic De Scaler ___ Other (describe below) Sacrament/Intervention _x__ Active listening ___ Anointing ___ Worship ___ Bereavement ___ Communion _x__ Nancy exploration ___ _x__ Life review _x__ Prayer ___ Reconciliation ___ Sacrament of Sick _x__ Supportive presence ___ Wedding ___ Other (describe below) Pastoral Comments patient has questions about nancy expressions; pt gives some life review; pt shares his nancy with others openly; pt expects to be discharged on Wednesday as his is recovery from her bout with pneumonia; prayer received
[2024-06-12 16:34] LABS: Bedside Glucose 107 mg/dL (74-106)
[2024-06-12 21:24] LABS: Bedside Glucose 199 mg/dL (74-106)
[2024-06-12] MEDS: Atorvastatin Calcium 40 MG Tablet PO (22:30)
[2024-06-12] MEDS: MELATONIN 3 MG TABLET PO (22:31)
[2024-06-12 22:33] VITALS: BP 135/52; PULSE 66
[2024-06-12 22:39] VITALS: BP 135/52; PULSE 66
[2024-06-13] MEDS: Enoxaparin 40 MG/0.4 ML Syringe SC (05:58)
[2024-06-13] MEDS: Carbidopa/Levodopa 25/100 Tablet PO ×3 (05:58→22:05)
[2024-06-13 06:27] LABS: Bedside Glucose 135 mg/dL (74-106)
[2024-06-13] MEDS: Insulin Lispro 100 UNIT/ML INSULN.PEN SC ×3 (08:23→17:16)
[2024-06-13] MEDS: Aspirin 325 MG Tablet PO (08:23)
[2024-06-13] MEDS: Ferrous Sulfate 325 MG Tablet PO (08:23)
[2024-06-13] MEDS: Calcium Carb/Vitamin D 1 TABLET Tablet PO (08:23)
[2024-06-13 08:24] VITALS: BP 121/52; PULSE 64; PULSE 65; RESP 17; TEMP 36.3; O2SAT 100
[2024-06-13] MEDS: Metoprolol Tartrate 25 MG Tablet 12.5 MG PO ×2 (08:24→22:06)
[2024-06-13] MEDS: Senna/Docusate Sodium 1 Tablet 2 TABLET PO ×2 (08:25→22:05)
[2024-06-13] MEDS: Polyethylene Glycol 3350 17 GM PACKET PO (08:25)
[2024-06-13] MEDS: Vibegron 75 MG TABLET PO (08:26)
[2024-06-13] MEDS: Insulin Glargine-YFGN 100 UNIT/ML Pen 10 UNIT SC ×2 (08:26→22:03)
[2024-06-13] MEDS: Menthol/Lanolin/Calamine/Znox 113 GM Tube 1 APPLIC TOPICAL ×2 (08:28→22:14)
[2024-06-13 10:00] VITALS: BMI 32.8
[2024-06-13 11:39] LABS: Bedside Glucose 214 mg/dL (74-106)
--- NOTE | 2024-06-13 15:44 | CASEMGMT ---
Social Work SW completed BIMS () and PHQ-2 () for MDS assessment. Monie Mcwilliams MORTGAGE LOAN ASSISTANT SLATE SPLITTER
[2024-06-13 17:30] LABS: Bedside Glucose 147 mg/dL (74-106)
[2024-06-13 21:37] LABS: Bedside Glucose 183 mg/dL (74-106)
[2024-06-13] MEDS: MELATONIN 3 MG TABLET PO (22:04)
[2024-06-13] MEDS: Atorvastatin Calcium 40 MG Tablet PO (22:04)
[2024-06-13 22:06] VITALS: BP 146/58; PULSE 62
[2024-06-13 22:17] VITALS: BP 146/58; PULSE 62
[2024-06-14] MEDS: Carbidopa/Levodopa 25/100 Tablet PO (05:11)
[2024-06-14] MEDS: Enoxaparin 40 MG/0.4 ML Syringe SC (05:11)
[2024-06-14 05:20] VITALS: PULSE 56; RESP 16
[2024-06-14 06:47] LABS: Anion Gap 10 (5-15); BUN 18 mg/dL (4-19); BUN/Creat Ratio 19.7 RATIO (10-20); Calcium,Total 8.9 mg/dL (7.6-11.0); Carbon Dioxide 24.5 mmol/L (21.0-32.0); Chloride 104 mmol/L (98-108); Creatinine, Serum 0.91 mg/dL (0.70-1.20); EST Glomerular Filtration Rate 84 (>60); Estimated Creatinine Clearance 66.65 ml/min (50-250); Glucose 171 mg/dL (70-99); Potassium 4.4 mmol/L (3.3-5.1); Sodium Level 139 mmol/L (133-145)
[2024-06-14 06:59] LABS: Bedside Glucose 171 mg/dL (74-106)
[2024-06-14 07:53] LABS: Absolute Lymphocyte Count 1.16 X10^3/uL (0.83-4.51); Absolute Neutrophil Count 3.5 X10^3/uL (2.0-7.7); Basophil# 0.05 X10^3/uL; Basophil% 0.9 % (0-1); Eosinophil# 0.16 X10^3/uL; Eosinophils% 2.8 % (0-5); Hematocrit 33.5 % (40-54); Hemoglobin 10.9 g/dL (13.0-16.5); Lymphocyte # 1.16 X10^3/ul (0.83-4.51); Lymphocyte % 20.5 % (19-41); Mean Corp Hgb Conc 32.5 g/dL (32-36); Mean Corpuscular Hgb 28.5 pg (27.0-32.0); Mean Corpuscular Volume 87.5 fL (80-94); Monocyte% 14.1 % (0-10); NRBC Flagged by Analyzer 0 % (0-5); Neutrophil # 3.45 X10^3/uL (2.7-7.7); Platelet Count 166 K/mm3 (150-450); RBC Distribution Width CV 14.4 % (11.6-14.6); RBC Distribution Width SD 46.1 fl (35.1-43.9); Red Blood Count 3.83 M/mm3 (4.6-6.2); White Blood Count 5.7 K/mm3 (4.4-11.0)
[2024-06-14 08:12] VITALS: BP 133/55; PULSE 64; RESP 16; TEMP 37.1; O2SAT 99
[2024-06-14] MEDS: Insulin Lispro 100 UNIT/ML INSULN.PEN SC (08:14)
[2024-06-14] MEDS: Insulin Glargine-YFGN 100 UNIT/ML Pen 10 UNIT SC (08:15)
[2024-06-14] MEDS: Senna/Docusate Sodium 1 Tablet 2 TABLET PO (08:16)
[2024-06-14] MEDS: Vibegron 75 MG TABLET PO (08:16)
[2024-06-14 08:17] VITALS: PULSE 64
[2024-06-14] MEDS: Metoprolol Tartrate 25 MG Tablet 12.5 MG PO (08:17)
[2024-06-14] MEDS: Aspirin 325 MG Tablet PO (08:17)
[2024-06-14] MEDS: Calcium Carb/Vitamin D 1 TABLET Tablet PO (08:17)
[2024-06-14] MEDS: Menthol/Lanolin/Calamine/Znox 113 GM Tube 1 APPLIC TOPICAL (08:21)
[2024-06-14 10:54] VITALS: BP 139/46; PULSE 52; RESP 18; TEMP 37.1; O2SAT 98
== END 2024-06-14 11:22 | disposition home health service (06) | DRG 950 ==
PROVIDERS: Admitting Provider Family Medicine Geriatric Medicine; PCP Family Medicine Geriatric Medicine; Referring Provider Family Medicine Geriatric Medicine; Visit Provider Family Medicine Geriatric Medicine
DX: Z48.812 Encounter for surgical aftercare following surgery on the circulatory system (principal); E11.65 Type 2 diabetes mellitus with hyperglycemia; D50.9 Iron deficiency anemia, unspecified; E11.42 Type 2 diabetes mellitus with diabetic polyneuropathy; E78.2 Mixed hyperlipidemia; G20.A1 Parkinson's disease without dyskinesia, without mention of fluctuations; I10 Essential (primary) hypertension; G47.33 Obstructive sleep apnea (adult) (pediatric); I25.10 Atherosclerotic heart disease of native coronary artery without angina pectoris; K21.9 Gastro-esophageal reflux disease without esophagitis; Z79.4 Long term (current) use of insulin; Z85.46 Personal history of malignant neoplasm of prostate; Z79.84 Long term (current) use of oral hypoglycemic drugs; Z87.891 Personal history of nicotine dependence; N32.81 Overactive bladder; Z95.1 Presence of aortocoronary bypass graft; Z79.899 Other long term (current) drug therapy; Z79.82 Long term (current) use of aspirin; G47.00 Insomnia, unspecified
CPT/HCPCS: 36415; 36430; 80048; 82274; 82962; 83540; 83550; 85014; 85018; 85025; 86850; 86900; 86901; 92507; 92523; 92610; 97110; 97116; 97129; 97130; 97162; 97166; 97530; 97535; 97802; P9016; A4216; J1940

== ENCOUNTER → 2024-05-18 | Outpatient (CLI) | payer MEDICARE, OTHER, SELFPAY ==
--- NOTE | 2024-05-18 08:41 | VDLE_ITS ---
Reason For Study Reason For Study: BLE Swelling RIGHT LEFT GSV is normal. Unable to visualize GSV ankle to knee. Anechoic, CFV is compressible, spontaneous, phasic, competent dilated and NONCOMPRESSIBLE area noted in area of GSV and demonstrates normal augmentation. from knee to prox thigh. Pt is S/P CABG with harvest FV is compressible, spontaneous, phasic, competent of Lt GSV noted. and demonstrates normal augmentation. CFV is compressible, spontaneous, phasic, competent, POP V is compressible, spontaneous, phasic, competent and demonstrates normal augmentation. and demonstrates normal augmentation. FV is compressible, spontaneous, phasic, competent T/P Trunk is compressible. and demonstrates normal augmentation. PTV is compressible. POP V is compressible, spontaneous, phasic, competent RT PerV is compressible. and demonstrates normal augmentation. Procedure T/P Trunk is compressible. This is a venous duplex using B-mode, color flow and PTV is compressible. spectral Doppler. LT PerV is compressible. Exam performed portable in patient room. The exam was diagnostic. A preliminary report was called and/or faxed to TCU RN. VL/Venous Duplex US - Andrew Extrem Interpretation Summary Anechoic, dilated and NONCOMPRESSIBLE area noted in area of GSV from knee to pr oximal thigh; seroma vs hematoma. Deep veins of the bilateral lower extremities are patent and compressible segme ntally. There is no evidence of bilateral lower extremity deep vein thrombosis. The right great saphenous vein appears pa tent and compressible segmentally. Ordering Physician: Fredis Moon Chi Referring Physician: Fredis Moon Chi Performed By: Td Walsh RVT
== END | disposition home or self-care (01) ==
LOC: CVS 08:41
PROVIDERS: PCP Family Medicine Geriatric Medicine; Referring Provider Family Medicine Geriatric Medicine; Visit Provider Family Medicine Geriatric Medicine
DX: R60.0 Localized edema (principal)
CPT/HCPCS: 93970

== ENCOUNTER → 2024-06-02 | Outpatient (CLI) | payer MEDICARE, OTHER, SELFPAY ==
--- NOTE | 2024-06-02 11:08 | VDLE_ITS ---
Reason For Study Reason For Study: Left leg pain RIGHT LEFT CFV is compressible, spontaneous, phasic, competent CFV is compressible, spontaneous, phasic, competent, and demonstrates normal augmentation. and demonstrates normal augmentation. Procedure FV is compressible, spontaneous, phasic, competent This is a venous duplex using B-mode, color flow and and demonstrates normal augmentation. spectral Doppler. POP V is compressible, spontaneous, phasic, competent Exam performed portable in patient room. and demonstrates normal augmentation. A preliminary report was called and/or faxed to TCU T/P Trunk is compressible. RN. PTV is compressible. LT PerV is compressible. GSV above knee was harvested s/p CABG. Nonvascularized structure noted thoughour the left thigh at area of GSV harvesting. GSV below knee is compressible. VL/Venous Duplex US, Unilateral Interpretation Summary Deep veins of the left lower extremity are patent and compressible segmentally. There is no evidence of left lower extremity deep vein thrombosis. Fluid collection noted at saphenous harvest site. Ordering Physician: Fredis Moon Chi Referring Physician: Fredis Moon Chi Performed By: Cee Huntley RVT
== END | disposition home or self-care (01) ==
LOC: CVS 11:07
PROVIDERS: PCP Family Medicine Geriatric Medicine; Referring Provider Family Medicine Geriatric Medicine; Visit Provider Family Medicine Geriatric Medicine
DX: M79.662 Pain in left lower leg (principal)
CPT/HCPCS: 93971

== ENCOUNTER → 2024-07-04 | Outpatient (CLI) | payer MEDICARE, OTHER, SELFPAY ==
--- NOTE | 2024-07-04 09:05 | PCM.CR.HP2 ---
CR - History & Physical General Arrival date:: 07/04/24 Arrival time:: 09:10 Date of Referral:: 06/23/24 Date of CR Evaluation:: 07/04/24 Referring Physician: Dr. Ernie Velasco Primary Diagnosis: S/P CABG History of Present Cardiac Event Onset Date Coronary Artery Bypass Graft:: Yes (onset 05/10/2024) Vessel: PADILLA-LAD, RSVG-PDA with endart Medications Ambulatory Orders ?Medication ?Instructions ?Recorded calcium 500 mg (as 1 tab PO DAILY supplement 12/20/17 carbonate)-vitamin D3 200 unit-vit K2 90 mcg tablet empagliflozin 25 mg tablet 25 mg PO DAILY 12/20/17 (Jardiance) carbidopa 25 mg-levodopa 100 mg 1 tab PO TID Parkinsons 01/12/20 tablet insulin glargine 100 32 unit subcut QAM diabetes 01/21/22 unit-lixisenatide 33 mcg/mL subcutaneous pen (Soliqua /33) vibegron 75 mg tablet (Gemtesa) 75 mg PO DAILY bladder 01/21/22 aspirin 81 mg tablet,delayed 325 mg PO QDAY blood thinner 05/16/24 release (Adult Aspirin Regimen) atorvastatin 10 mg tablet 40 mg PO QDAY cholesterol 05/16/24 ferrous sulfate 325 mg (65 mg 325 mg PO QODAY iron supplement 05/16/24 iron) tablet (FeroSul) potassium chloride 20 mEq 40 meq PO DAILY supplement 05/16/24 tablet,extended release (K-Tab) melatonin 3 mg tablet 3 mg PO QHS #0 tabs 06/06/24 metoprolol tartrate 25 mg tablet 12.5 mg (1/2 x 25 mg) PO BID 30 06/06/24 days #30 tabs Allergies Allergies rosuvastatin (From [facility]) Adverse Reaction (Severe, Verified 03/23/24 13:22) Flu like symptoms adhesive tape Adverse Reaction (Verified 03/23/24 13:22) skin tears Sleep Disorder Evaluation Hx of Sleep Apnea: Yes Do you snore loudly (louder than talking or can be heard through closed doors)?: No Do you often feel tired/ fatigued/ sleepy during daytime?: No Has anyone observed you stop breathing during sleep?: No History of Hypertension (for STOP score): Yes STOP Results: Negative Advanced Directives Advanced Directives Do you have a Healthcare Power of Family Member Caretaker?: Yes Living Will: Yes Advance Directives Information Provided: No Advance Directives on File: Yes DNR Order?:: No Past Medical History Covid-19 Screening Physicial Symptoms Other Clinical Concerns Exposure Risk Pertinent Comorbidities 65 years or older:: Yes Has a serious heart condition:: Yes Diabetic:: Yes Past Medical Illness Past Medical History (Updated 06/10/24 @ 00:00 by Background Daemon) Carotid artery disease I77.9 Malignant neoplasm of prostate C61 Mixed hyperlipidemia E78.2 Hepatitis B B19.10 GERD (gastroesophageal reflux disease) K21.9 Neuropathy G62.9 Essential hypertension I10 Syncope R55 Wide-complex tachycardia I47.2 Premature ventricular contraction I49.3 Premature atrial contractions I49.1 Sinus bradycardia R00.1 Atherosclerotic heart disease of [place] coronary artery without angina pectoris I25.10 Mild Diabetes type 2, controlled E11.9 Normal pressure hydrocephalus G91.2 Obesity E66.9 Asymptomatic PVCs I49.3 Dyslipidemia E78.5 HTN (hypertension) I10 Sleep apnea, obstructive G47.33 Past Surgical History Past Surgical History (Updated 06/10/24 @ 00:00 by Background Daemon) History of prostatectomy Z90.79 History of cataract surgery Z98.49 History of cholecystectomy Z90.49 History of tonsillectomy Z90.89 Surgical History: no surgical history Family History Summary Family History Father COPD (chronic obstructive pulmonary disease) CAD (coronary artery disease) Mother CVA (cerebral vascular accident) Brother CAD (coronary artery disease) Myocardial infarction, Onset Age: 61 Social History Smoking History Smoking Status: Former smoker Years Smokin Packs Smoked per Day: 1.75 (Stopped in 1973) Alcohol Use Alcohol Usage: No Occupation Occupation (List type of work in comments):: Retired Social Environment Status Marital Status: Current Living Arrangements Living Environment:: Spouse Children How many children do you have?: 3 Do any of your children live nearby?: Yes Safety Do you feel safe in your surroundings?: Yes Assistance Do you need any assistance at home?: no Review of Systems Review of Systems Hints Review of Present Symptoms: Reports Shortness of Breath with Exertion, Dizziness/Lightheadedness, Fatigue and Appetite - Normal; Denies Shortness of Breath at Rest, PVD, Operative Discomfort, Angina, Wound Healing, Heart Arrhythmia/Irregularities, Appetite - Special Diet, Sleep - Normal or Sexual Changes Pain Is Patient Pain Free?: Yes Risk Factor Assessment Chief Complaint Chief Complaint: S/P CABG Vital Signs Pulse Ox: 97 Blood Pressure: 122/50 Pulse Pulse Rate: 56 Pulse Rhythm: Regular Hypertension How long have you been treated?: 15 years Blood Pressure Sitting - Right Arm: 122/50 Diabetes Diabetic History: Type II Nutrition Referral for Diabetes: Yes Obesity Height: 5 ft 6 in Weight:: 213 lb Weight in Pounds: 213.0 lbs Body Mass Index (BMI): 34.3 Nutritional Referral for Obesity: Yes Physical Inactivity Physical Inactivity: Reg Exercise 30 min/day Risk Stratification Risk Guidelines: Moderate Risk: Risk Factor for Smoking, Risk Factor for Dyslipidemia, Risk Factor for Obesity, Risk Factor for Sedentary Lifestyle and Risk Factor for Depression and Highest Risk: Risk Factor for Diabetes and Risk Factor for Hypertension For Smoking Smoking Risk Guidelines For Dyslipidemia Dyslipidemia Risk Guidelines For Diabetes Mellitus Diabetes Risk Guidelines For Obesity/Overweight Obesity/Overweight Risk Guidelines For Hypertension Hypertension Risk Guidelines For Sedentary Lifestyle Sedentary Lifestyle Risk Guidelines For Depression Depression Risk Guidelines Family History Family History Father COPD (chronic obstructive pulmonary disease) CAD (coronary artery disease) Mother CVA (cerebral vascular accident) Brother CAD (coronary artery disease) Myocardial infarction, Onset Age: 61 Motivation Motivation to Participate On a scale of 1 to 10, how prepared are you to commit to attending program?: 7 What do you see as barriers to successfully being able to complete the program?: nothing What do you see as the benefits of succesfully completing the program? In other words, what do you hope to get out of participating in the program?: balance, endurance Are there issues you are dealing with that will interfere with completing the program?: no Do you have a spouse or signficant other, family or friends who will help support you to complete the program?: yes
--- NOTE | 2024-07-04 09:16 | CR.ITP_ITS ---
Diagnosis General Information Admitting Diagnosis: S/P CABG Personal Learning Style:: Audio/Visual Barriers to Learning: No Barriers Stage of change r/t lifestyle modifications:: Contemplation Gave educational material for:: Treating Heart Disease, How The Heart Works, What it means to have Heart Disease, How Coronary Artery Disease is Diagnosed, Heart Procedures, What Heart Medications Do, Risk Factors & Modifications, Nettie ng an Active Life, Nutrition, Emotions & Heart Disease, Stress Management & Relaxation and Sleep Disorders & Heart Disease Education/Goals Cardiac Rehabilitation Goals Personal Goals: Initial Assessment: Improve energy level, Participate in home exercise program, Get back to work, or to resume activities faster, Improve know ledge of cardiac disease, Improve muscle strength and endurance, Improve diet and eating habits (eat healthier), Control risk factors (learn risk factor modification) and Other goal: (Balance) Scale for measuring improvement of personal goals Diagnosis & Disease Process Outcomes/Goals: Pt IDs own risk factors & lifestyle modifications by Session 10, Verbalizes symptoms of angina & response by session 3., Pt independently manages and Other Additional Outcomes/Goals: Plan/Interventions: Assist Pt to ID & engage in lifestyle modification to reduce CVD risk, Instruct on individual risk factors, Review symptoms of angina & emergency actions, Review secondary diagnosis & identify educational needs. and Other see comment 30 day Reassessments:: Not Met 30 day Reassessments:: Not Met 30 day Reassessments:: Not Met 30 day Reassessments:: Not Met Final Reassessments:: Not Met Safety Referral to Physical Therapy: No Referral to [facility] Case Management: No Fall Risk Assessed:: Yes Assistive Devices:: Walker Exercise - Initial Assessment Visit Date of Eval: 07/04/24 (initial eval ) Mets: Pre-: >3 METS for 30 minutes by discharge, >5 METS for 30 minutes by discharge, >7 METS for 30 minutes by discharge and Unable to meet goal due to: (see comment below) Physician Prescribed Exercise Modalities: Treadmill, Schwinn Airdyne AD-7, SciFit Stepper, SciFit Pro-II Ergometer and SciFit Lateral Portal Frequency: 3x/week for 12 weeks [36 sessions] Intensity: 60-80% of age predicted maximum heart rate reserve Duration: 30 - 45 minutes Current METSs:: 3 Target Heart Rate:: 83-104 Resting Blood Pressure: 122/50 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 nonspecific T abnormalities lateral leads Outcomes & Goals Goals:: Verbalizes understanding of THR, RPE & goal METS by session 6, Documents in home exercise log/reports 30 min aerobic 5 day/wk by DC, Demonstrates accurate pulse taking by DC and Other additional outcome/goals: see below Intervention & Plan Exercise Program Goals: Instruct on personal THR & RPE, Instruct on MET level & personal MET goal, Show patient to take own pulse /validate performance until accurate, Instruct on home exercise and Other additional plan/int Physical Activity Home Exercise Physical Activity - Home Exercise: Safe Exercise, Warm-up, Self-monitoring, Cool-Down, Home Exercise > 30 min Daily and Sitting Time <3 hours/daily Outcomes & Goals Outcomes/Goals: Demonstrates correct Warm-up/exercise Cool-Down (S3) if = 2.5 METs, Verbalizes symptoms of exercise intolerance by Session 3 (S3), Demonstrate safe equipment use (S3) & follows exercise prescrition (6) and Other: See below Intervention & Plan Plan/Intervention: Instruct warm-up & cool-down if exercising at > 2 METs, Instruct on symptoms of exercise intolerance & actions to take, Instruct & monitor on saf, Assess intial functional capacity & safety risk and Other See below Nutrition - Initial Assessment Program Goals Nutrition Program Goals Patient has diagnosis of Hyperlipidemia (ICD E78)?: Yes Visit Date of Eval: 07/04/24 (initial eval ) Cholesterol/Lipids (Other Core Measures) Determine presence & major risk factors that modify LDL goal: Hypertension or hypertensive medication, Low HDL cholesterol <40 mg/dL*, Family history of premature CHD in Male < 55 years: female <65 yearsFa and Age men > 45 years; women >/= 55 years Outcomes/Goals: Pt IDs own risk factors & lifestyle modifications by Session 10, Verbalizes symptoms of angina & response by session 3., Pt independently manages and Other Additional Outcomes/Goals: Intervention/Plan: Advocate for lipid panel cholesterol medication if applicable, Instruct on personal lipid levels & lipid goals/NCEP guidelines, Instruct on cholesterol and Other additional plan/int Referral to dietitian:: Yes Diabetes (Other Core Measures) Diabetes Type: 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 Referral to Diabetic Clinic:: Yes Weight Mgt (Other Care) Height: 5 ft 6 in Weight:: 213 lb BMI: 34.3 Diagnosis Overweight/Obesity BMI> 30% ICD-10 E66: Yes Diagnosis High BMI/Morbid Obesity BMI> 35% ICD-10 Z68: No Outcomes/Goals: Pt sets, maintains & shows weight loss goal & trend during rehab and Other additional outcomes/goals Intervention/Plan: Instruct on ideal BMI & set weight loss goal w/patient, Assist pt to ID & incorporate diet changes for weight loss by S9, Refer to Structured Weight Loss program as appropriate, Encourage goal of using 250- 300dcal per session for weight loss and Other additional plan/interventions Healthy Eating Habits Will attend diet classes:: Yes Outcomes/Goals:: Consume diet rich in vegs,fruits,whole grain/high fiber,fish,lean meat, Limit sat/trans fats,cholesterol & added salts & sugars and Other additional outcome/goals: Intervention/Plan:: Assess current eating habits and Other Additional plan/interventions Education Gave educational materials for:: Signs & symptoms of hypoglycemia, Signs & symptoms of hyperglycemia, Relate diabetes to coronary artery disease and Healthy eating Core - Initial Assessment Visit Date of Eval: 07/04/24 (initial eval ) Medication Compliance Preventative Medication(s):: Aspirin, Statin/lipid and Beta soni H/O mental health issues: depression, anxiety, or addiction?: No Doesn?t believe in the benefits of treatment?: No Believes medications are unnecessary or harmful?: No Has a concern about medication side effects?: No Expresses concern over the cost of medications?: No Outcomes/Goals: Verbalizes medications,desired effect & common side effects @ DC, Pt self-reports following medication regimen, Keeps card in wallet w/medicat ions listed by DC and Other additional outcome/goals: Interventions/plans: Instruct on medication effects & side effects, Review medication list w/patient every two weeks, Instruct importance of taking meds as ordered & assist problem solving and Other additional Tobacco Use Tobacco Use: Non-smoker How long ago did you quit using tobacco products?: Greater than or equal to 6 months ago Years Smokin (Pt smoked 1.75 packs a day and stopped in 1973.) Interventions/plan: Instruct on effects of smoking & provide smoking cessation resource, Assist pt to set quit date & provide encouragement, Assist pt to develop strategies to achieve/maintain quit date, Assist pt w/nicotine replacement & medication for cessation success and Other additional plan/interventions Hypertension Hypertension Diagnosis:: Hypertension ICD-10 I10 Resting Blood Pressure:: 122/50 [place] [employer] Hypertension Guidelines Outcomes/Goals: Able to verbalize/achieve optimal blood pressure <130/80, Incorporates diet changes & exercise for blood pressure control by DC and Other additional outcomes/goals Interventions/plan: Instruct on optimal blood pressure, hypertension & medications, Instruct on effects of sodium, alcohol, stress, exercise &hypertension and Other additional plan/interventions Tobacco Cessation Referral Smoking Cessation Referral:: No Individual Education/Counseling:: No Education Schedule Given:: Yes Psychosocial - Initial Assess VIsit Date of Eval: 07/04/24 (initial eval ) History of previous Mental disease:: No Target Goals Target Goals Psychosocial Test Tool Used:: Mega[employer] QOL Cardiac and PHQ-9 Questionnaire phq-9 Severity Referral to Behavioral Health PS - Interventions: Yes: Attend Stress Management Classes Outcomes/Goals: See list Psychosocial Outcomes/Goals:: ID's personal stressors & 2 strategies to manage stress by discharge and Other Additional outcome/goals: Intervention/Plan: See List Interventions/Plan:: Assess stressors,coping strategies & signs of derpression on admission, Instruct/assist pt to develop coping & personal stress Mgt strategies, Refer to Behavioral Health if appropriate, Refer to Physician if appropriate, Instruct patient to recognize signs & symptoms of depression, Instruct patient to recog and Other additional plan/intervention Patient Health Questionnaire PHQ-9 Screening Initial Assessment: 1. Little interest or pleasure in doing things: Not at all 2. Feeling down, depressed, or hopeless: Not at all 3. Trouble falling or staying asleep, or sleeping too much: Nearly every day 4. Feeling tired or having little energy: More than half the days 5. Poor appetite or overeating: More than half the days 6. Feeling bad about yourself -- or that you are a failure or have let yourself or your family down: Several days 7. Trouble concentrating on things, such as reading the newspaper or watching television: More than half the days 8. Moving or speaking so slowly that other people could have noticed. Or the opposite - being so fidgety or restless that you have been moving around a lot more than usual: More than half the days 9. Thoughts that you would be better off , or of hurting yourself in some way: Not at all How difficult have these problems made it for you to do your work, take care of things at home, or get along with other people?: Somewhat difficult Total Score: 12 ABRIL-Q SV Test Statements CAD is a disease of the arteries in the heart: False Examples of risk factors for heart disease: True Angina is chest pain or discomfort: True The benefits of resistance training include: True Eating more meat and dairy products: False Anti-platelet medications such as aspirin are important: True The only effective way to manage stress: False An exercise warm-up slowly increases heart rate: I Don't Know Prepared, processed foods usually have high sodium: True Depression is common after a heart attack: True The statin medications lower cholesterol: True To control blood pressure, lower the amount of sodium: I Don't Know If someone gets chest discomfort during walking: False Transfats are partially hydrogenated vegetable oils: True Sleep apnea that is not treated increases the risk: False To control cholesterol, one should become a vegetarian: False Someone knows if he/she is exercising at the right level: True Diabetes cannot be prevented with exercise & health eating: False Stress is a large risk for heart attack: True A diet that can help lower blood pressure is rich in: True Total Score Total Correct Responses: 18 Self-Efficacy 6-Item Scale Initial Assessment: We would like to know how confident you are in doing certain activities. Please select your confidence level for: Fatigue Select Number: 5 Physical Discomfort or Pain Select Number: 7 Emotional Distress Select Number: 6 Other Symptoms or Health Problems Select Number: 4 Different Tasks and Activities Select Number: 5 Medication Select Number: 9 Total Score:: 6 Nutrition Survey Nutrition Survey Instructions Scoring Instructions Nutrition Survey Initial: Have you lost >10 lbs over the past 2 months without trying?: No Are you following a special diet at home for diabetes, low fat, or low salt?: No Are you interested in meeting with a dietitian for help understanding your diet?: Yes Do you eat less than 3 meals a day?: No Do you eat fatty meats (russell, sausage, ribs, etc), fried foods, desserts, large amounts of salad dressings, margarine, butter, or cheese most days?: Yes Do you have food allergies? [Enter types in comment field]: No Do you eat in restaurants more than 3 times a week?: No Do you season food with salt, seasoning salt, or garlic salt?: Yes Do you used canned, boxed, frozen meals, or soups, seasoning packets?: No Total Score:: 3 Exercise - 30-day Assessment Physician Prescribed Exercise Modalities: Treadmill, Schwinn Airdyne AD-7, SciFit Stepper, SciFit Pro-II Ergometer and SciFit Lateral Portal Exercise - 60-day Assessment Physician Prescribed Exercise Modalities: Treadmill, Schwinn Airdyne AD-7, SciFit Stepper, SciFit Pro-II Erg ometer and SciFit Lateral Patient Navigator Exercise - 90-day Assessment Physician Prescribed Exercise Modalities: Treadmill, Schwinn Airdyne AD-7, SciFit Stepper, SciFit Pro-II Ergometer and SciFit Lateral Portal Exercise - Final/Discharge Physician Prescribed Exercise Modalities: Treadmill, Schwinn Airdyne AD-7, SciFit Stepper, SciFit Pro-II Ergometer and SciFit Lateral Portal Frequency: 3x/week for 12 weeks [36 sessions] Intensity: 60-80% of age predicted maximum heart rate reserve Current METSs:: 3 Target Heart Rate:: 83-104 Nutrition - 30-Day Assessment Weight Mgt (Other Care) Height: 5 ft 6 in Weight:: 213 lb BMI: 34.3 Nutrition - 60-Day Assessment Weight Mgt (Other Care) Height: 5 ft 6 in Weight:: 213 lb BMI: 34.3 Core - 30-Day Assessment Tobacco Use Years Smokin (Pt smoked 1.75 packs a day and stopped in 1973.) Core - Final Assessment Hypertension Resting Blood Pressure:: 122/50 [place] [employer] Hypertension Guidelines Core - 60-Day Assessment Hypertension Resting Blood Pressure:: 122/50 [place] [employer] Hypertension Guidelines Psychosocial - 30-Day Assess Target Goals Target Goals Referral to Behavioral Health PS - Interventions: Yes: Attend Stress Management Classes Psychosocial - 60-Day Assess Target Goals Target Goals Referral to Behavioral Health PS - Interventions: Yes: Attend Stress Management Classes Psychosocial - 90-Day Assess Target Goals Target Goals Referral to Behavioral Health PS - Interventions: Yes: Attend Stress Management Classes Psychosocial - Final Assessmen Target Goals Target Goals Referral to Behavioral Health PS - Interventions: Yes: Attend Stress Management Classes Nutrition - 90-Day Assessment Weight Mgt (Other Care) Height: 5 ft 6 in Weight:: 213 lb BMI: 34.3 Nutrition - Final Assessment Program Goals Patient has diagnosis of Hyperlipidemia (ICD E78)?: Yes Weight Mgt (Other Care) Height: 5 ft 6 in Weight:: 213 lb BMI: 34.3
[2024-07-04 09:41] VITALS: BP 122/50; PULSE 56; O2SAT 97
[2024-07-04 10:21] VITALS: BP 122/50; BMI 34.3
== END | disposition home or self-care (01) ==
PROVIDERS: PCP Family Medicine Geriatric Medicine; Referring Provider Thoracic Surgery (Cardiothoracic Vascular Surgery); Visit Provider Thoracic Surgery (Cardiothoracic Vascular Surgery)
DX: I25.10 Atherosclerotic heart disease of native coronary artery without angina pectoris (principal); Z95.1 Presence of aortocoronary bypass graft

== ENCOUNTER → 2024-07-06 | Outpatient (CLI) | payer MEDICARE, OTHER, SELFPAY ==
[2024-07-04 10:21] VITALS: BMI 34.3
[2024-07-06 11:48] LABS: Absolute Lymphocyte Count 1.27 X10^3/uL (0.83-4.51); Absolute Neutrophil Count 3.9 X10^3/uL (2.0-7.7); Basophil# 0.06 X10^3/uL; Eosinophil# 0.11 X10^3/uL; Eosinophils% 1.8 % (0-5); Hematocrit 37.5 % (40-54); Lymphocyte # 1.27 X10^3/ul (0.83-4.51); Lymphocyte % 20.6 % (19-41); Mean Corpuscular Hgb 27.6 pg (27.0-32.0); Mean Corpuscular Volume 86.4 fL (80-94); Mean Platelet Vol. 9.5 fl (6.2-12.0); Monocyte# 0.82 X10^3/uL; Monocyte% 13.3 % (0-10); NRBC Flagged by Analyzer 0 % (0-5); Neutrophil # 3.88 X10^3/uL (2.7-7.7); Neutrophil % 62.7 % (47-70); Platelet Count 192 K/mm3 (150-450); RBC Distribution Width CV 14.4 % (11.6-14.6); RBC Distribution Width SD 45.3 fl (35.1-43.9); Red Blood Count 4.34 M/mm3 (4.6-6.2); White Blood Count 6.2 K/mm3 (4.4-11.0)
[2024-07-06 12:20] LABS: Cholesterol 106 mg/dL (<=200); High Density Lipoprotein 39 mg/dL; Low Density Lipoprotein Calc. 46 mg/dL; Triglycerides 107 mg/dL; Very Low Density Lipoprotein 21 mg/dL (5-40); cholesterol:hdl ratio screen 2.73
[2024-07-06 12:22] LABS: ALB/GLOB Ratio 1.4 RATIO (0.9-2.4); AST(SGOT) 17 U/L (<=37); Alanine Aminotransfer ALT/SGPT < 5 U/L (<=46); Albumin, Serum 3.9 g/dL (3.4-4.8); Alkaline Phosphatase 117 U/L (40-129); Anion Gap 11 (5-15); BUN 25 mg/dL (4-19); BUN/Creat Ratio 25.8 RATIO (10-20); Calcium,Total 9.4 mg/dL (7.6-11.0); Carbon Dioxide 24.2 mmol/L (21.0-32.0); Chloride 106 mmol/L (98-108); Creatinine, Serum 0.98 mg/dL (0.70-1.20); EST Glomerular Filtration Rate 77 (>60); Globulin 2.7 g/dL (2.2-4.2); Glucose 173 mg/dL (70-99); Potassium 4.3 mmol/L (3.3-5.1); Protein, Total 6.6 g/dL (5.9-8.4); Sodium Level 141 mmol/L (133-145); Total Bilirubin 0.32 mg/dL (0.00-1.30)
== END | disposition home or self-care (01) ==
PROVIDERS: Nurse Practitioner Gerontology; PCP Family Medicine Geriatric Medicine; Referring Provider Internal Medicine Cardiovascular Disease; Visit Provider Internal Medicine Cardiovascular Disease
DX: R60.0 Localized edema (principal); E11.9 Type 2 diabetes mellitus without complications; I10 Essential (primary) hypertension; D64.9 Anemia, unspecified; E78.2 Mixed hyperlipidemia
CPT/HCPCS: 36415; 80053; 80061; 85025

== ENCOUNTER 2024-07-21 09:15 | Outpatient (RCR) | payer MEDICARE, OTHER, SELFPAY ==
[2024-07-04 10:21] VITALS: BMI 34.3
== END 2024-07-22 23:59 ==
LOC: CR 09:15
PROVIDERS: PCP Family Medicine Geriatric Medicine; Referring Provider Thoracic Surgery (Cardiothoracic Vascular Surgery); Visit Provider Thoracic Surgery (Cardiothoracic Vascular Surgery)
DX: I25.10 Atherosclerotic heart disease of native coronary artery without angina pectoris (principal); Z95.1 Presence of aortocoronary bypass graft
CPT/HCPCS: 93798

== ENCOUNTER 2024-08-21 09:15 | Outpatient (RCR) | payer MEDICARE, OTHER, SELFPAY ==
[2024-07-04 10:21] VITALS: BMI 34.3
--- NOTE | 2024-08-03 06:58 | CR.ITP_ITS ---
Exercise - Initial Assessment Visit Session #:: 12 Physician Prescribed Exercise Modalities: Treadmill, SciFit Stepper, SciFit Pro-II Ergometer and SciFit Lateral Lunchroom Aide Nutrition - Initial Assessment Weight Mgt (Other Care) Height: 5 ft 6 in Weight:: 208 lb BMI: 33.5 Psychosocial - Initial Assess Target Goals Target Goals Referral to Behavioral Health PS - Interventions: Yes: Attend Stress Management Classes Patient Health Questionnaire PHQ-9 Screening 30-Day Re-eval Assessment: 1. Little interest or pleasure in doing things: Not at all 2. Feeling down, depressed, or hopeless: Not at all 3. Trouble falling or staying asleep, or sleeping too much: Nearly every day 4. Feeling tired or having little energy: More than half the days 5. Poor appetite or overeating: More than half the days 6. Feeling bad about yourself -- or that you are a failure or have let yourself or your family down: Several days 7. Trouble concentrating on things, such as reading the newspaper or watching television: More than half the days 8. Moving or speaking so slowly that other people could have noticed. Or the opposite - being so fidgety or restless that you have been moving around a lot more than usual: More than half the days 9. Thoughts that you would be better off , or of hurting yourself in some way: Not at all How difficult have these problems made it for you to do your work, take care of things at home, or get along with other people?: Somewhat difficult Total Score: 12 Self-Efficacy 6-Item Scale 30-Day Re-eval Assessment: We would like to know how confident you are in doing certain activities. Please select your confidence level for: Fatigue Select Number: 5 Physical Discomfort or Pain Select Number: 7 Emotional Distress Select Number: 6 Other Symptoms or Health Problems Select Number: 4 Different Tasks and Activities Select Number: 5 Medication Select Number: 9 Total Score:: 6 Nutrition Survey Nutrition Survey Instructions Scoring Instructions Exercise - 30-day Assessment Visit Date of Eval: 08/03/24 Session #:: 12 Physician Prescribed Exercise Modalities: Treadmill, SciFit Stepper, SciFit Pro-II Ergometer and SciFit Lateral Lunchroom Aide Frequency: 3x/week for 12 weeks [36 sessions] Intensity: 60-80% of age predicted maximum heart rate reserve Duration: 30 - 45 minutes Current METSs:: 4.2 Target Heart Rate:: 83-104 Current RPE:: 10.5-12 Maximum Excercise HR:: 91 Resting Blood Pressure: 128/50 Maximum Exercise Blood Pressure: 144/68 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 Outcomes & Goals Goals:: Verbalizes understanding of THR, RPE & goal METS by session 6, Documents in home exercise log/reports 30 min aerobic 5 day/wk by DC, Demonstrates accurate pulse taking by DC and Other additional outcome/goals: see below Intervention & Plan Exercise Program Goals: Instruct on personal THR & RPE, Instruct on MET level & personal MET goal, Show patient to take own pulse /validate performance until accurate, Instruct on home exercise and Other additional plan/int Physical Activity Home Exercise Physical Activity - Home Exercise: Safe Exercise, Warm-up, Self-monitoring, Cool-Down, Home Exercise > 30 min Daily and Sitting Time <3 hours/daily Outcomes & Goals Outcomes/Goals: Demonstrates correct Warm-up/exercise Cool-Down (S3) if = 2.5 METs, Verbalizes symptoms of exercise intolerance by Session 3 (S3), Demonstrate safe equipment use (S3) & follows exercise prescrition (6) and Other: See below Intervention & Plan Plan/Intervention: Instruct warm-up & cool-down if exercising at > 2 METs, Instruct on symptoms of exercise intolerance & actions to take, Instruct & monitor on saf, Assess intial functional capacity & safety risk and Other See below 30-day Reassessments 30 day Reassessments:: Progressing Reassessment Notes & Comments:: RPE explained to pt. Pt demonstrates understanding in his daily sessions. Exercise - 60-day Assessment Physician Prescribed Exercise Modalities: Treadmill, SciFit Stepper, SciFit Pro-II Ergometer and SciFit Lateral [facility] Exercise - 90-day Assessment Physician Prescribed Exercise Modalities: Treadmill, SciFit Stepper, SciFit Pro-II Ergometer and SciFit Lateral [facility] Exercise - Final/Discharge Physician Prescribed Exercise Modalities: Treadmill, SciFit Stepper, SciFit Pro-II Ergometer and SciFit Lateral Lunchroom Aide Nutrition - 30-Day Assessment Program Goals Nutrition Program Goals Patient has diagnosis of Hyperlipidemia (ICD E78)?: Yes Visit Date of Eval: 08/03/24 Session #:: 12 Cholesterol/Lipids (Other Core Measures) Determine presence & major risk factors that modify LDL goal: Hypertension or hypertensive medication, Low HDL cholesterol <40 mg/dL*, Family history of premature CHD in Male < 55 years: female <65 yearsFa and Age men > 45 years; women >/= 55 years Outcomes/Goals: Pt IDs own risk factors & lifestyle modifications by Session 10, Verbalizes symptoms of angina & response by session 3., Pt independently manages and Other Additional Outcomes/Goals: Intervention/Plan: Advocate for lipid panel cholesterol medication if applicable, Instruct on personal lipid levels & lipid goals/NCEP guidelines, Instruct on cholesterol and Other additional plan/int Referral to dietitian:: Yes Diabetes (Other Core Measures) Diabetes Type: 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 Referral to Diabetic Clinic:: Yes Weight Mgt (Other Care) Height: 5 ft 6 in Weight:: 208 lb BMI: 33.5 Diagnosis Overweight/Obesity BMI> 30% ICD-10 E66: Yes Diagnosis High BMI/Morbid Obesity BMI> 35% ICD-10 Z68: No Outcomes/Goals: Pt sets, maintains & shows weight loss goal & trend during rehab and Other additional outcomes/goals Intervention/Plan: Instruct on ideal BMI & set weight loss goal w/patient, Assist pt to ID & incorporate diet changes for weight loss by S9, Refer to Structured Weight Loss program as appropriate, Encourage goal of using 250- 300dcal per session for weight loss and Other additional plan/interventions Healthy Eating Habits Will attend diet classes:: Yes Outcomes/Goals:: Consume diet rich in vegs,fruits,whole grain/high fiber,fish,lean meat, Limit sat/trans fats,cholesterol & added salts & sugars and Other additional outcome/goals: Intervention/Plan:: Assess current eating habits and Other Additional plan/int erventions 30-day Reassessments:: Progressing Reassessment Notes & Comments:: Pt has attended nutrition class. Pt has also been referred to see out four h agent. Will continue to encourage a heart healthy low sodium diet. Education Gave educational materials for:: Signs & symptoms of hypoglycemia, Signs & symptoms of hyperglycemia, Relate diabetes to coronary artery disease and Healthy eating Nutrition - 60-Day Assessment Weight Mgt (Other Care) Height: 5 ft 6 in Weight:: 208 lb BMI: 33.5 Core - 30-Day Assessment Visit Date of Eval: 08/03/24 Session #:: 12 Medication Compliance Preventative Medication(s):: Aspirin, Statin/lipid and Beta soni H/O mental health issues: depression, anxiety, or addiction?: No Doesn’t believe in the benefits of treatment?: No Believes medications are unnecessary or harmful?: No Has a concern about medication side effects?: No Expresses concern over the cost of medications?: No Outcomes/Goals: Verbalizes medications,desired effect & common side effects @ DC, Pt self-reports following medication regimen, Keeps card in wallet w/medications listed by DC and Other additional outcome/goals: Interventions/plans: Instruct on medication effects & side effects, Review medication list w/patient every two weeks, Instruct importance of taking meds as ordered & assist problem solving and Other additional Tobacco Use Tobacco Use: Non-smoker Hypertension Hypertension Diagnosis:: Hypertension ICD-10 I10 Resting Blood Pressure:: 128/50 [place] [employer] Hypertension Guidelines Peak Exercise Blood Pressure:: 144/68 Outcomes/Goals: Able to verbalize/achieve optimal blood pressure <130/80, Incorporates diet changes & exercise for blood pressure control by DC and Other additional outcomes/goals Interventions/plan: Instruct on optimal blood pressure, hypertension & medications, Instruct on effects of sodium, alcohol, stress, exercise &hypertension and Other additional plan/interventions 30 day Reassessments:: Progressing Reassessment Notes & Comments:: Pt's BP's are within AHA normal limits on some days. Will continue to monitor and report to pt's physician if necessary. Tobacco Cessation Referral Smoking Cessation Referral:: No Individual Education/Counseling:: No Education Schedule Given:: Yes Psychosocial - 30-Day Assess VIsit Date of Eval: 08/03/24 Session #:: 12 History of previous Mental disease:: No Target Goals Target Goals Psychosocial Test Tool Used:: PHQ-9 Questionnaire phq-9 Severity See PHQ-9 Score: 12 Referral to Behavioral Health PS - Interventions: Yes: Attend Stress Management Classes Outcomes/Goals: See list Psychosocial Outcomes/Goals:: ID's personal stressors & 2 strategies to manage stress by discharge and Other Additional outcome/goals: Intervention/Plan: See List Interventions/Plan:: Assess stressors,coping strategies & signs of derpression on admission, Instruct/assist pt to develop coping & personal stress Mgt strategies, Refer to Behavioral Health if appropriate, Refer to Physician if appropriate, Instruct patient to recognize signs & symptoms of depression, Instruct patient to recog and Other additional plan/intervention 30-day Reassessments: 30 day Reassessments:: Progressing Reassessment Notes & Comments:: Pt will attend stress management class. Pt denies any psychosocial issues at this time. Will continue to monitor. Psychosocial - 60-Day Assess Target Goals Target Goals Referral to Behavioral Health PS - Interventions: Yes: Attend Stress Management Classes Outcomes/Goals: See list Psychosocial Outcomes/Goals:: ID's personal stressors & 2 strategies to manage stress by discharge and Other Additional outcome/goals: Psychosocial - 90-Day Assess Target Goals Target Goals Referral to Behavioral Health PS - Interventions: Yes: Attend Stress Management Classes Psychosocial - Final Assessmen Target Goals Target Goals Referral to Behavioral Health PS - Interventions: Yes: Attend Stress Management Classes Nutrition - 90-Day Assessment Weight Mgt (Other Care) Height: 5 ft 6 in Weight:: 208 lb BMI: 33.5 Nutrition - Final Assessment Weight Mgt (Other Care) Height: 5 ft 6 in Weight:: 208 lb BMI: 33.5
[2024-08-03 07:09] VITALS: BP 128/50; BMI 33.5
== END 2024-08-21 23:59 ==
LOC: CR 09:15
PROVIDERS: PCP Family Medicine Geriatric Medicine; Referring Provider Thoracic Surgery (Cardiothoracic Vascular Surgery); Visit Provider Thoracic Surgery (Cardiothoracic Vascular Surgery)
DX: I25.10 Atherosclerotic heart disease of native coronary artery without angina pectoris (principal); Z95.1 Presence of aortocoronary bypass graft
CPT/HCPCS: 93798

== ENCOUNTER → 2024-09-07 | Outpatient (CLI) | payer MEDICARE, OTHER, SELFPAY ==
[2024-09-01 08:23] VITALS: BMI 33.4
[2024-09-07 15:37] LABS: Hematocrit 41.1 % (40-54); Hemoglobin 13.4 g/dL (13.0-16.5); Immature Granulocytes Count 0.040 X10^3/uL (0.0-0.0); Mean Corp Hgb Conc 32.6 g/dL (32-36); Mean Corpuscular Volume 83.0 fL (80-94); Mean Platelet Vol. 9.2 fl (6.2-12.0); NRBC Flagged by Analyzer 0 % (0-5); Platelet Count 190 K/mm3 (150-450); RBC Distribution Width CV 14.8 % (11.6-14.6); RBC Distribution Width SD 44.4 fl (35.1-43.9); Red Blood Count 4.95 M/mm3 (4.6-6.2); White Blood Count 6.8 K/mm3 (4.4-11.0)
[2024-09-07 16:54] LABS: Cholesterol 115 mg/dL (<=200); Low Density Lipoprotein Calc. 37 mg/dL; Triglycerides 179 mg/dL; Very Low Density Lipoprotein 36 mg/dL (5-40); Vitamin D,25 Hydroxy 39.6 ng/mL (30-100); cholesterol:hdl ratio screen 2.71
[2024-09-07 16:58] LABS: AST(SGOT) 19 U/L (<=37); Alanine Aminotransfer ALT/SGPT < 5 U/L (<=46); Albumin, Serum 4.0 g/dL (3.4-4.8); Alkaline Phosphatase 93 U/L (40-129); Anion Gap 14 (5-15); BUN 25 mg/dL (4-19); BUN/Creat Ratio 25.8 RATIO (10-20); Calcium,Total 9.3 mg/dL (7.6-11.0); Carbon Dioxide 23.8 mmol/L (21.0-32.0); Chloride 104 mmol/L (98-108); Globulin 2.7 g/dL (2.2-4.2); Glucose 107 mg/dL (70-99); Potassium 4.6 mmol/L (3.3-5.1)
== END | disposition home or self-care (01) ==
LOC: LAB 15:03
PROVIDERS: PCP Family Medicine Geriatric Medicine; Referring Provider Family Medicine Geriatric Medicine; Visit Provider Family Medicine Geriatric Medicine
DX: E78.5 Hyperlipidemia, unspecified (principal); E11.42 Type 2 diabetes mellitus with diabetic polyneuropathy; E55.9 Vitamin D deficiency, unspecified; I10 Essential (primary) hypertension
CPT/HCPCS: 36415; 80053; 80061; 82306; 83036; 84443; 85025

== ENCOUNTER 2024-09-08 09:58 | Emergency (ER) | payer MEDICARE, OTHER, SELFPAY ==
[2024-09-01 08:23] VITALS: BMI 33.4
[2024-09-08] VITALS (7 sets, daily range): BP systolic 137–160; BP diastolic 59–63; PULSE 52–86; RESP 16–18; TEMP 36.7–36.8; O2SAT 98–100; BMI 33.1
--- NOTE | 2024-09-08 10:33 | EDS_ITS ---
HPI History of Present Illness Chief Complaint: Dizziness Informant: patient Narrative Narrative: Patient is an 84-year-old male with history of type 2 diabetes mellitus, coronary artery disease (status post CABG April 2024), neuropathy, Parkinson's disease, hypertension, hyperlipidemia, normal pressure hydrocephalus as well as peripheral vertigo (follows with Dr. Krishnamurthy) presenting with abnormal blood pressure and heart rate at home as well as dizziness. Patient states he woke up feeling dizzy. Later in the morning he went to check his blood sugar and tilted his head back to put his eyedrops in and then got dizzy again. He describes it as a ball in his head moving to his side. He states his vertigo always feels like this and he has to get cannula and reposition therapy with Dr. Mejias. He states his head feels full of fluff and this is typical when he has that his episodes. Start to feel little nauseous. He notes he did take his a.m. medications but before taking his medication his checked his vital signs his blood pressure is 126/98 and his heart rate was 38. He denies any associated chest pain or shortness of breath. Denies any numbness or weakness. Does feel little off balance but that is typical when he has these episodes. His notes he did look pale this morning. He is on 81 mg of aspirin daily. Came in for further evaluation given his elevated diastolic and his bradycardia. Currently does not have any dizziness and feels asymptomatic except for mild nausea and fullness in his head. [facility] Medical History Carotid artery disease Malignant neoplasm of prostate Mixed hyperlipidemia Hepatitis B GERD (gastroesophageal reflux disease) Neuropathy Essential hypertension Syncope Wide-complex tachycardia Premature ventricular contraction Premature atrial contractions Sinus bradycardia Atherosclerotic heart disease of [place] coronary artery without angina pectoris Diabetes type 2, controlled Normal pressure hydrocephalus Obesity Asymptomatic PVCs Dyslipidemia HTN (hypertension) Sleep apnea, obstructive Home Medications ?Medication ?Instructions ?Recorded ?Last Taken ?Type empagliflozin 25 mg tablet 25 mg PO DAILY 12/20/17 Unk nown History (Jardiance) carbidopa 25 mg-levodopa 100 mg 1 tab PO TID Parkinson s 01/12/20 Unknown History tablet vibegron 75 mg tablet (Gemtesa) 75 mg PO DAILY bladder 01/21/22 Unknown History aspirin 81 mg tablet,delayed 325 mg PO QDAY blood thin ner 05/16/24 Unknown History release (Adult Aspirin Regimen) atorvastatin 10 mg tablet 40 mg PO QDAY cholesterol Unknown History ferrous sulfate 325 mg (65 mg 325 mg PO QODAY iron sup plement 05/16/24 Unknown History iron) tablet (FeroSul) melatonin 3 mg tablet 3 mg PO QHS #0 tabs 06/06/24 Unknown Rx metoprolol tartrate 25 mg tablet 12.5 mg (1/2 x 25 mg) PO BID 30 06/06/24 Unknow n Rx days #30 tabs insulin glargine 100 45 unit subcut QAM diabetes 07/06/24 Unknown History unit-lixisenatide 33 mcg/mL subcutaneous pen (Soliqua ) meclizine 12.5 mg tablet 12.5 mg PO TID PRN dizziness #10 09/08/24 Unknown Rx tabs Allergy/AdvReac Type Severity Reaction Status Date / Time rosuvastatin (From Crestor) AdvReac Severe Flu like Verified 09/08/24 09:59 symptoms adhesive tape AdvReac skin tears Verified 09/08/24 09:59 Family History Father COPD (chronic obstructive pulmonary disease) CAD (coronary artery disease) Mother CVA (cerebral vascular accident) Brother CAD (coronary artery disease) Myocardial infarction, Onset Age: 61 Surgical History History of prostatectomy History of cataract surgery History of cholecystectomy History of tonsillectomy Social History household members: spouse Smoking Status: Former smoker alcohol intake: never substance use type: does not use ROS ROS ED Constitutional Constitutional ED: Denies chills, fever(s) or sweats Eyes Eyes: Denies change in vision ENT ENT ED: Denies ear pain or sore throat Cardiovascular Cardiovascular: Denies chest pain or palpitations Respiratory/Chest Respiratory/Chest: Denies cough or dyspnea Gastrointestinal Gastrointestinal: Reports nausea; Denies abdominal pain or vomiting Musculoskeletal Musculoskeletal: Denies arthralgias or myalgias Integumentary Denies rash Neurologic Neurologic: Reports other Details: Describes a mild head fullness ; Denies paresthesias or weakness Hematologic/Lymphatic Hematologic/Lymphatic: Denies easy bleeding or easy bruising EXAM Physical Exam Const Vital Signs: 09/08/24 09:58 09/08/24 09:59 09/08/24 10:34 Temperature 98.1 F 98.2 F Temperature Source Oral Oral Pulse Rate 86 52 L Respiratory Rate 17 16 Blood Pressure 152/60 H 137/59 H 151/63 H Blood Pressure Mean 90 85 92 Pulse Ox 99 99 Oxygen Delivery Method Room Air Room Air 09/08/24 11:15 09/08/24 12:00 09/08/24 13:00 Temperature Temperature Source Pulse Rate 52 L 56 L 54 L Respiratory Rate 18 18 18 Blood Pressure 151/62 H 160/63 H Blood Pressure Mean 91 95 Pulse Ox 98 100 98 Oxygen Delivery Method Room Air Room Air Positive well nourished and well developed General Appearance ED: well developed and NAD HEENT Reports moist mucous membranes; Denies TM's clear HEENT Narrative: Partial cerumen impaction bilaterally. Able to visualize tympanic membranes bilaterally which appear normal. Normal ear canals otherwise. Normal external ears. Tympanic Membrane ED: Negative for TM's clear Eyes PERRL and EOMs intact bilaterally Eyes Narrative: No significant nystagmus on exam. Patient is currently asymptomatic from his dizziness. Neck supple Chest Wall inspection of chest normal and palpation of chest normal Resp normal respiratory effort and clear to auscultation bilaterally Cardio regular rhythm and no murmurs Rate: bradycardia GI normal to inspection, nondistended, normoactive bowel sounds and non-tender Palpation: Negative for tender Extremity normal to inspection Extremity Narrative: Braces on the bilateral lower legs Neuro oriented x3, CN's II-XII intact bilaterally and no sensory deficits noted Neuro Narrative: Relatively normal gait with walker. Normal coordination with no truncal ataxia. Normal finger-nose. Sensorium / Orientation: alert Sensory Exam: No sensory level loss detected Motor Exam: strength 5/5 throughout; Negative for general weakness Psych mental status grossly normal Skin no rashes or lesions noted and no wounds MDM MDM MDM Narrative Medical decision making narrative: Patient evaluated for vertigo that happened today he also had an episode of elevated diastolic blood pressure with low heart rate which prompted them to come to the emergency room. Does not a history of peripheral vertigo. Currently is asymptomatic. Is given dose of meclizine. Does have sinus bradycardia in the emergency room however this is chronic for the patient and he is also on metoprolol. His blood pressure is normal and I do not suspect excessive medication as a cause of his symptoms. Differential includes arrhythmia, peripheral vertigo, central vertigo (lower suspicion given normal neurologic exam with no truncal ataxia normal finger-nose as well as gait), electrolyte abnormality, symptomatic anemia and ACS. He has a normal neurologic exam and I do not think he needs emergent neuroimaging of the brain at this time. Cerumen cleared out from his ears with some improvement of his hearing. Workup including CBC, delta high-sensitivity troponin, BMP as well as chest x- ray obtained. Workup largely normal. Chest x-ray viewed by myself as well as radiology does not show any acute process. Patient will be discharged home with outpatient follow-up with ENT (established Dr. Foy.) Is given return precautions. Was given a prescription for as needed meclizine as needed for symptoms. Counseled on return precautions. He feels comfortable with discharge home. Patient and agreeable with this plan of care. Lab Data Attestation: I reviewed the patient's lab results. Labs: Laboratory Results - last 24 hr 09/08/24 09/08/24 10:53 12:25 WBC 5.6 RBC 5.26 Hgb 14.1 Hct 43.7 MCV 83.1 MCH 26.8 L MCHC 32.3 RDW Std Deviation 44.7 H RDW Coeff of Kandice 14.9 H Plt Count 189 MPV 9.2 Immature Gran % (Auto) 0.700 Neut % (Auto) 65.0 Lymph % (Auto) 17.6 L [place] % (Auto) 13.8 H Eos % (Auto) 1.8 Baso % (Auto) 1.1 H Absolute Neuts (auto) 3.6 Absolute Lymphs (auto) 0.98 Nucleated RBC % 0 Sodium 141 Potassium 4.3 Chloride 103 Carbon Dioxide 26.3 Anion Gap 12 BUN 24 H Creatinine 1.00 Estim Creat Clear Calc 61.00 Est GFR (MDRD) Non-Af 75 BUN/Creatinine Ratio 24.2 H Glucose 109 H Calcium 9.6 Troponin T High Sens 6 Troponin T Hi Sens 2 Hr < 6 Radiography Chest X-Ray - ED: 2 View, Read by ED Physician, Read by Radiologist and No Acute Disease Diagnostic Testing: Clinical Impression(s) from Imaging Studies Chest X-Ray 09/08/24 11:15 IMPRESSION: No acute cardiopulmonary process is identified radiographically. Median sternotomy wires and vascular clips are now present and are new when compared to the prior exam. Arteriosclerotic vascular disease of the aorta. Reading Location: [facility] Rhythm Strip Rhythm Strip: Sinus Rhythm Rate: 53 Ectopy: PVC(s) EKG Initial EKG: Attestation: I personally reviewed and interpreted this EKG as follows: Interpretation: Sinus Bradycardia Comments: Sinus bradycardia at rate 53 bpm with PVCs Leftward axis Bifascicular block with right bundle branch block and left anterior fascicular block Normal ST segments Compared to prior EKG on 05/12/2024 patient now has PVCs but no other significant changes Discharge Plan Triage Chief Complaint: Dizziness ED Provider: Tiara Alston Dx/Rx/DC Orders Clinical Impression: Sinus bradycardia, Vertigo Instructions: ED Vertigo, Unspecified Prescriptions: New meclizine 12.5 mg tablet 12.5 mg PO TID PRN (Reason: dizziness) Qty: 10 0RF No Action Jardiance 25 mg tablet 25 mg PO DAILY carbidopa-levodopa 25-100 mg tablet 1 tab PO TID Soliqua 100/33 100 unit-33 mcg/mL insulin pen 45 unit subcut QAM Gemtesa 75 mg tablet 75 mg PO DAILY ferrous sulfate [FeroSul] 325 mg (65 mg iron) tablet 325 mg PO QODAY atorvastatin 10 mg tablet 40 mg PO QDAY aspirin [Adult Aspirin Regimen] 81 mg tablet,delayed release (DR/EC) 325 mg PO QDAY melatonin 3 mg Tablet 3 mg PO QHS Qty: 0 0RF metoprolol tartrate 25 mg Tablet 12.5 mg PO BID 30 Days Qty: 30 0RF Primary Care Provider: Fredis Moon Chi Referrals: Tim Foy MD [Med Staff - Active Staff] - Fredis Moon Chi, MD [Primary Care Provider] - Activity Restrictions/Additional Instructions: Your workup today was largely normal. Please follow-up outpatient with Dr. Moon as scheduled next week. You continue to have intermittent episodes of dizziness/vertigo please also follow-up with Dr. Dey. If your symptoms progress or worsen please return to the emergency room. Print Language: Bulgarian Disposition Disposition: Home, Self Care
[2024-09-08 11:02] LABS: Hematocrit 43.7 % (40-54); Hemoglobin 14.1 g/dL (13.0-16.5); Immature Granulocytes Count 0.040 X10^3/uL (0.0-0.0); Mean Corp Hgb Conc 32.3 g/dL (32-36); Mean Corpuscular Volume 83.1 fL (80-94); Mean Platelet Vol. 9.2 fl (6.2-12.0); NRBC Flagged by Analyzer 0 % (0-5); Platelet Count 189 K/mm3 (150-450); RBC Distribution Width CV 14.9 % (11.6-14.6); RBC Distribution Width SD 44.7 fl (35.1-43.9); Red Blood Count 5.26 M/mm3 (4.6-6.2); White Blood Count 5.6 K/mm3 (4.4-11.0)
--- NOTE | 2024-09-08 11:15 | RAD_ITS ---
PROCEDURE: CHEST PA AND LATERAL 09/08/2024 REASON FOR EXAM: BRADYCARDIA TECHNIQUE: CHEST PA AND LATERAL COMPARISON: Chest x-ray dated 04/13/2024 FINDINGS: Hardware: Median sternotomy wires and vascular clips are noted and are new when compared to the prior exam. Heart: Heart size and configuration are within normal limits. Arteriosclerotic vascular disease of the aorta is noted. Mediastinum: Pulmonary vasculature and hilar structures are unremarkable. Trachea is midline. Lungs: Lungs are expanded and clear without evidence of atelectasis, consolidation, effusion or pneumonic infiltrate. Bones: Extensive degenerative changes of the acromioclavicular joints are noted bilaterally. Arthritic changes of both shoulders are noted. Diffuse osteopenia of the bony thorax is seen. There appears to be diffuse idiopathic skeletal hyperostosis of the thoracic spine. RAD/Chest PA and Lateral IMPRESSION: No acute cardiopulmonary process is identified radiographically. Median sternotomy wires and vascular clips are now present and are new when com pared to the prior exam. Arteriosclerotic vascular disease of the aorta. Reading Location: [id number]
[2024-09-08 11:27] LABS: Anion Gap 12 (5-15); BUN 24 mg/dL (4-19); BUN/Creat Ratio 24.2 RATIO (10-20); Calcium,Total 9.6 mg/dL (7.6-11.0); Carbon Dioxide 26.3 mmol/L (21.0-32.0); Chloride 103 mmol/L (98-108); Estimated Creatinine Clearance 61.00 ml/min (50-250); Glucose 109 mg/dL (70-99); Potassium 4.3 mmol/L (3.3-5.1)
[2024-09-08 11:29] LABS: Troponin T High Sensitivity 6 ng/L (<=22)
[2024-09-08 12:52] LABS: Troponin T High Sens 2 HR < 6 ng/L (<=22)
--- NOTE | 2024-09-08 14:41 | CHAPLAIN ---
Type of Pastoral Visit _x__ Initial Visit ___ Follow-up Visit ___ On-call Visit ___ General Patient Visit ___ Spiritual Assessment ___ Family Conference ___ Bereavement ___ Rapid Response ___ Code Blue ___ Other (describe below) Pastoral Care Referral From _x__ Patient ___ Family ___ Nurse ___ Physician ___ Acid Remover ___ Pump Tender ___ Other (describe below) Sacrament/Intervention _x__ Active listening ___ Anointing ___ Yazdanism ___ Bereavement ___ Communion ___ Nancy exploration ___ ___ Life review _x__ Prayer ___ Reconciliation ___ Sacrament of Sick _x__ Supportive presence ___ Wedding ___ Other (describe below) Pastoral Comments
== END 2024-09-08 13:38 | disposition home or self-care (01) ==
PROVIDERS: Emergency Provider Emergency Medicine; PCP Family Medicine Geriatric Medicine; Visit Provider Emergency Medicine
DX: R00.1 Bradycardia, unspecified (principal); G20.A1 Parkinson's disease without dyskinesia, without mention of fluctuations; E11.40 Type 2 diabetes mellitus with diabetic neuropathy, unspecified; R42 Dizziness and giddiness; I25.10 Atherosclerotic heart disease of native coronary artery without angina pectoris; G47.30 Sleep apnea, unspecified; Z95.1 Presence of aortocoronary bypass graft; Z87.891 Personal history of nicotine dependence
CPT/HCPCS: 71046; 80048; 82962; 84484; 85025; 93005; 99285

== ENCOUNTER → 2024-09-12 | Outpatient (CLI) | payer MEDICARE, OTHER, SELFPAY ==
[2024-09-01 08:23] VITALS: BMI 33.4
[2024-09-12 17:21] LABS: Creatinine, Urine (random) 72.60 mg/dL (39.00-259.00); Microalbumin,Random Urine 16.0 mg/L (<20 mg/L)
== END | disposition home or self-care (01) ==
LOC: LABSPEC 15:45
PROVIDERS: PCP Family Medicine Geriatric Medicine; Referring Provider Family Medicine Geriatric Medicine; Visit Provider Family Medicine Geriatric Medicine
DX: E11.65 Type 2 diabetes mellitus with hyperglycemia (principal)
CPT/HCPCS: 82043; 82570

== ENCOUNTER 2024-09-20 09:15 | Outpatient (RCR) | payer MEDICARE, OTHER, SELFPAY ==
[2024-08-03 07:09] VITALS: BMI 33.5
--- NOTE | 2024-09-01 08:05 | CR.ITP_ITS ---
Exercise - Initial Assessment Physician Prescribed Exercise Modalities: Treadmill, SciFit Stepper and SciFit Lateral [place] Nutrition - Initial Assessment Weight Mgt (Other Care) Height: 5 ft 6 in Weight:: 207 lb BMI: 33.4 Core - Initial Assessment Hypertension Resting Blood Pressure:: 146/60 [place] [employer] Hypertension Guidelines Psychosocial - Initial Assess Target Goals Target Goals Referral to Behavioral Health PS - Interventions: Yes: Attend Stress Management Classes Patient Health Questionnaire PHQ-9 Screening 60-Day Re-eval Assessment: 1. Little interest or pleasure in doing things: Not at all 2. Feeling down, depressed, or hopeless: Not at all 3. Trouble falling or staying asleep, or sleeping too much: Nearly every day 4. Feeling tired or having little energy: More than half the days 5. Poor appetite or overeating: More than half the days 6. Feeling bad about yourself -- or that you are a failure or have let yourself or your family down: More than half the days 7. Trouble concentrating on things, such as reading the newspaper or watching television: More than half the days 8. Moving or speaking so slowly that other people could have noticed. Or the opposite - being so fidgety or restless that you have been moving around a lot more than usual: Several days 9. Thoughts that you would be better off , or of hurting yourself in some way: Not at all How difficult have these problems made it for you to do your work, take care of things at home, or get along with other people?: Somewhat difficult Total Score: 12 Self-Efficacy 6-Item Scale 60-Day Re-eval Assessment: We would like to know how confident you are in doing certain activities. 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 [place] Exercise - 60-day Assessment Visit Date of Eval: 09/01/24 Session #:: 22 Physician Prescribed Exercise Modalities: Treadmill, SciFit Stepper and SciFit Lateral [place] Frequency: 3x/week for 12 weeks [36 sessions] Intensity: 60-80% of age predicted maximum heart rate reserve Duration: 30 - 45 minutes Current METSs:: 6 Target Heart Rate:: 83-116 Maximum Excercise HR:: 124 Resting Blood Pressure: 122/64 Maximum Exercise Blood Pressure: 176/80 EKG Type: NSR-ST w/1DAVB BBB w/rare PAC, rare PVC's. 3vent couplets. 5 beat atrial ta Outcomes & Goals Goals:: Verbalizes understanding of THR, RPE & goal METS by session 6, Documents in home exercise log/reports 30 min aerobic 5 day/wk by DC, Demonstrates accurate pulse taking by DC and Other additional outcome/goals: see below Intervention & Plan Exercise Program Goals: Instruct on personal THR & RPE, Instruct on MET level & personal MET goal, Show patient to take own pulse /validate performance until accurate, Instruct on home exercise and Other additional plan/int Physical Activity Home Exercise Physical Activity - Home Exercise: Safe Exercise, Warm-up, Self-monitoring, Cool-Down, Home Exercise > 30 min Daily and Sitting Time <3 hours/daily Outcomes & Goals Outcomes/Goals: Demonstrates correct Warm-up/exercise Cool-Down (S3) if = 2.5 METs, Verbalizes symptoms of exercise intolerance by Session 3 (S3), Demonstrate safe equipment use (S3) & follows exercise prescrition (6) and Other: See below Intervention & Plan Plan/Intervention: Instruct warm-up & cool-down if exercising at > 2 METs, Instruct on symptoms of exercise intolerance & actions to take, Instruct & monitor on saf, Assess intial functional capacity & safety risk and Other See below 30-day Reassessments 30 day Reassessments:: Progressing Reassessment Notes & Comments:: Proper warm up and cool down explained to pt. Pt demonstrates understanding in his daily sessions. Exercise - 90-day Assessment Physician Prescribed Exercise Modalities: Treadmill, SciFit Stepper and SciFit Lateral Stripping Shovel Operator Exercise - Final/Discharge Physician Prescribed Exercise Modalities: Treadmill, SciFit Stepper and SciFit Lateral [place] Nutrition - 30-Day Assessment Weight Mgt (Other Care) Height: 5 ft 6 in Weight:: 207 lb BMI: 33.4 Nutrition - 60-Day Assessment Program Goals Nutrition Program Goals Patient has diagnosis of Hyperlipidemia (ICD E78)?: Yes Visit Date of Eval: 09/01/24 Session #:: 22 Cholesterol/Lipids (Other Core Measures) Determine presence & major risk factors that modify LDL goal: Hypertension or hypertensive medication, Low HDL cholesterol <40 mg/dL*, Family history of premature CHD in Male < 55 years: female <65 yearsFa and Age men > 45 years; women >/= 55 years Outcomes/Goals: Pt IDs own risk factors & lifestyle modifications by Session 10, Verbalizes symptoms of angina & response by session 3., Pt independently manages and Other Additional Outcomes/Goals: Intervention/Plan: Advocate for lipid panel cholesterol medication if applicable, Instruct on personal lipid levels & lipid goals/NCEP guidelines, Instruct on cholesterol and Other additional plan/int Referral to dietitian:: Yes 30-day Reassessments:: Met Reassessment Notes & Comments:: Pt will be seen our web ui software engineer 09/11/24 Diabetes (Other Core Measures) Diabetes Type: 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 Referral to Diabetic Clinic:: Yes Weight Mgt (Other Care) Height: 5 ft 6 in Weight:: 207 lb BMI: 33.4 Diagnosis Overweight/Obesity BMI> 30% ICD-10 E66: Yes Diagnosis High BMI/Morbid Obesity BMI> 35% ICD-10 Z68: No Outcomes/Goals: Pt sets, maintains & shows weight loss goal & trend during rehab and Other additional outcomes/goals Intervention/Plan: Instruct on ideal BMI & set weight loss goal w/patient, Assist pt to ID & incorporate diet changes for weight loss by S9, Refer to Structured Weight Loss program as appropriate, Encourage goal of using 250- 300dcal per session for weight loss and Other additional plan/interventions Healthy Eating Habits Will attend diet classes:: Yes Outcomes/Goals:: Consume diet rich in vegs,fruits,whole grain/high fiber,fish ,lean meat, Limit sat/trans fats,cholesterol & added salts & sugars and Other additional outcome/goals: Intervention/Plan:: Assess current eating habits and Other Additional pl an/interventions 30-day Reassessments:: Progressing Reassessment Notes & Comments:: Pt has attended nutrition class and is scheduled to meet with out web ui software engineer 09/11/24. Education Gave educational materials for:: Signs & symptoms of hypoglycemia, Signs & symptoms of hyperglycemia, Relate diabetes to coronary artery disease and Healthy eating Core - Final Assessment Hypertension Resting Blood Pressure:: 146/60 [place] [employer] Hypertension Guidelines Core - 60-Day Assessment Visit Date of Eval: 09/01/24 Session #:: 22 Medication Compliance Preventative Medication(s):: Aspirin, Statin/lipid and Beta soni H/O mental health issues: depression, anxiety, or addiction?: No Doesn?t believe in the benefits of treatment?: No Believes medications are unnecessary or harmful?: No Has a concern about medication side effects?: No Expresses concern over the cost of medications?: No Outcomes/Goals: Verbalizes medications,desired effect & common side effects @ DC, Pt self-reports following medication regimen, Keeps card in wallet w/medications listed by DC and Other additional outcome/goals: Interventions/plans: Instruct on medication effects & side effects, Review medication list w/patient every two weeks, Instruct importance of taking meds as ordered & assist problem solving and Other additional 30-day Reassessments:: Met Reassessment Notes & Comments:: Pt is currently taking meds as prescribed. Tobacco Use Tobacco Use: Non-smoker Hypertension Hypertension Diagnosis:: Hypertension ICD-10 I10 Resting Blood Pressure:: 122/64 Resting Blood Pressure:: 146/60 [place] [employer] Hypertension Guidelines Peak Exercise Blood Pressure:: 176/80 Outcomes/Goals: Able to verbalize/achieve optimal blood pressure <130/80, Incorporates diet changes & exercise for blood pressure control by DC and Other additional outcomes/goals Interventions/plan: Instruct on optimal blood pressure, hypertension & medications, Instruct on effects of sodium, alcohol, stress, exercise &hyper tension and Other additional plan/interventions 30 day Reassessments:: Progressing Reassessment Notes & Comments:: Pt's BP's are within AHA normal limits on most days. Will continue to monitor. Tobacco Cessation Referral Smoking Cessation Referral:: No Individual Education/Counseling:: No Education Schedule Given:: Yes Psychosocial - 30-Day Assess Target Goals Target Goals Referral to Behavioral Health PS - Interventions: Yes: Attend Stress Management Classes Outcomes/Goals: See list Psychosocial Outcomes/Goals:: ID's personal stressors & 2 strategies to manage stress by discharge and Other Additional outcome/goals: Psychosocial - 60-Day Assess VIsit Date of Eval: 09/01/24 Session #:: 22 History of previous Mental disease:: No Target Goals Target Goals Psychosocial Test Tool Used:: PHQ-9 Questionnaire phq-9 Severity See PHQ-9 Score: 12 Referral to Behavioral Health PS - Interventions: Yes: Attend Stress Management Classes Outcomes/Goals: See list Psychosocial Outcomes/Goals:: ID's personal stressors & 2 strategies to manage stress by discharge and Other Additional outcome/goals: Intervention/Plan: See List Interventions/Plan:: Assess stressors,coping strategies & signs of derpression on admission, Instruct/assist pt to develop coping & personal stress Mgt strategies, Refer to Behavioral Health if appropriate, Refer to Physician if appropriate, Instruct patient to recognize signs & symptoms of depression, Instruct patient to recog and Other additional plan/intervention 30-day Reassessments: 30 day Reassessments:: Met Reassessment Notes & Comments:: Pt has attended stress management class. Pt denies any psychosocial issues at this time. Psychosocial - 90-Day Assess Target Goals Target Goals Referral to Behavioral Health PS - Interventions: Yes: Attend Stress Management Classes Psychosocial - Final Assessmen Target Goals Target Goals Referral to Behavioral Health PS - Interventions: Yes: Attend Stress Management Classes Nutrition - 90-Day Assessment Weight Mgt (Other Care) Height: 5 ft 6 in Weight:: 207 lb BMI: 33.4 Nutrition - Final Assessment Weight Mgt (Other Care) Height: 5 ft 6 in Weight:: 207 lb BMI: 33.4
[2024-09-01 08:23] VITALS: BP 122/64; BP 146/60; BMI 33.4
== END 2024-09-21 23:59 ==
LOC: CR 09:15
PROVIDERS: PCP Family Medicine Geriatric Medicine; Referring Provider Thoracic Surgery (Cardiothoracic Vascular Surgery); Visit Provider Thoracic Surgery (Cardiothoracic Vascular Surgery)
DX: I25.10 Atherosclerotic heart disease of native coronary artery without angina pectoris (principal); Z95.1 Presence of aortocoronary bypass graft
CPT/HCPCS: 93798; 97802

== ENCOUNTER → 2024-10-02 | Outpatient (CLI) | payer MEDICARE, OTHER, SELFPAY ==
[2024-09-29 08:14] VITALS: BMI 33.5
== END | disposition home or self-care (01) ==
LOC: LAB 14:43
PROVIDERS: PCP Family Medicine Geriatric Medicine; Referring Provider Family Medicine Geriatric Medicine; Visit Provider Family Medicine Geriatric Medicine
DX: E29.1 Testicular hypofunction (principal)
CPT/HCPCS: 36415; 84403; 86617

== ENCOUNTER → 2024-10-02 | Outpatient (CLI) | payer MEDICARE, OTHER, SELFPAY ==
[2024-09-29 08:14] VITALS: BMI 33.5
[2024-10-02 21:28] LABS: Staph aureus DNA By PCR NEGATIVE (Negative)
--- OUTSIDE RECORDS SUMMARY | 2024-10-02 21:37 | XMS RPT_ITS | CCD ---
Author Organization [facility] CliniSywy Care Team Providers Care Wedger Machine Name Role Phone Charity Landis RN Unavailable Unavailable Rosa Harris Unavailable Hailey Huerta Unavailable Unavailable Hailey Huerta Unavailable Unavailable Steven, Rosa L Unavailable Fredis Moon Chi Primary Care Provider [phone] Red, Dr. Fredis Schaefer Primary Care Provider 1([facility])[phone] Red, Dr. Fredis Schaefer Referring Provider 1([facility])[phone] Josias Turk Attending Provider 1([facility])[phone] Red, Dr. Fredis Schaefer Primary Care Provider Dr. Krish Nagel Attending Provider 1([facility])[phone] Red, Dr. Fredis Schaefer Primary Care Provider 1([facility])[phone] Dr. Krish Nagel Attending Provider 1([facility])[phone] Red, Dr. Fredis Schaefer Primary Care Provider 1([facility])[phone] Red, Dr. Fredis Schaefer Referring Provider 1([facility])[phone] David FOOTBALL PAD REPAIRER, FOOTBALL PAD REPAIRER-C Mi Attending Provider Red, Dr. Fredis Schaefer Primary Care Provider Red, Dr. Fredis Schaefer Referring Provider David FOOTBALL PAD REPAIRER, FOOTBALL PAD REPAIRER-C Mi Attending Provider Unavailable Primary Care Provider Unavailbianka Moon MD, Kelsey Primary Care Provider Chante Hong RN Unavailable Unavailable Red SCHMITT, Dr. Fredis Schaefer Primary Care Provider [phone] Red SCHMITT, Dr. Fredis Schaefer Attending Provider [phone] Red SCHMITT, Dr. Fredis Schaefer Referring Provider Esteban SCHMITT, Dr. Davies Attending Provider Esteban SCHMITT, Dr. Davies Referring Provider Kriss SCHMITT, Dr. Klein Attending Provider Esteban SCHMITT, Dr. Davies Other Provider Anna Marie NOVA, Raven Griffith Attending Provider Red SCHMITT, Dr. Fredis Schaefer Admit Provider [phone] Red SCHMITT, Kelsey Primary Care Provider [phone] Chante Hong RN Unavailable Unavailable Lilliana Romeo I. Unavailable Red SCHMITT, Dr. Fredis Schaefer Primary Care Provider Red SCHMITT, Dr. Fredis Schaefer Attending Provider Krista SCHMITT, Dr. Klein Attending Provider Krista SCHMITT, Dr. Klein Referring Provider David HINTON-Mi Esqueda Attending Provider David HINTON-Mi Esqueda Other Provider Red SCHMITT, Dr. Fredis Schaefer Primary Care Provider Esteban SCHMITT, Dr. Davies Attending Provider Red SCHMITT, Dr. Fredis Schaefer Referring Provider Chante Hong RN Unavailable Unavailable Lilliana Romeo I. Unavailable [phone] VELASCO, DAYSI Attending Unavailable SAMSON ELDER Referring Unavailable VELASCO, DAYSI Admitting Unavailable VELASCO, DAYSI Attending Unavailable RED, [facility] Primary Care Unavailable LILIAN CISSE Consulting Unavailable VELASCO, DAYSI Attending Unavailable MIGUEL ANGEL HANDY Attending Unavailable RED, [facility]I Primary Care Unavailable MIGUEL ANGEL HANDY Attending Unavailable RED, [facility] Primary Care Unavailable AZAM MCBRIDE Referring Unavailable MIGUEL ANGEL HANDY Attending Unavailable RED, FR[facility]I Primary Care Unavailable Red SCHMITT, Dr. Fredis Schaefer Primary Care Provider Esteban SCHMITT, Dr. Davies Attending Provider Esteban SCHMITT, Dr. Davies Referring Provider Kriss SCHMITT, Dr. Klein Attending Provider Dr. Fredis Moon MD, Chi Primary Care Provider Esteban SCHMITT, Dr. Davies Attending Provider Esteban SCHMITT, Dr. Davies Referring Provider Dr. Tiara Alston DO Emergency Provider Kriss SCHMITT, Dr. Klein Attending Provider Dr. Tiara Alston DO Attending Provider Red, Fredis Chi Primary Care Unavailable Red, Fredis Chi Referring Unavailable Red, Fredis Chi Attending Unavailable Red, Fredis Chi Attending Unavailable Red, Fredis Chi Referring Unavailable Red, Fredis Chi Primary Care Unavailable Red, Fredis Chi Primary Care Unavailable Red, Fredis Chi Referring Unavailable Red, Fredis Chi Attending Unavailable Red, Fredis Chi Primary Care Unavailable Ke, Min Attending Unavailable Ke, Min Referring Unavailable Red, Fredis Chi Primary Care Unavailable Esteban, Samson Referring Unavailable Esteban, Samson Attending Unavailable Red, Fredis Chi Attending Unavailable Red, Fredis Chi Referring Unavailable Red, Fredis Chi Primary Care Unavailable Red, Fredis Chi Referring Unavailable Red, Fredis Chi Attending Unavailable Red, Fredis Chi Admitting Unavailable Red, Fredis Chi Primary Care Unavailable Red, Fredis Chi Primary Care Unavailable Velasco, Daysi Referring Unavailable Velasco, Daysi Attending Unavailable Esteban, Samson Referring Unavailable Esteban, Samson Attending Unavailable Red, Fredis Chi Primary Care Unavailable David FOOTBALL PAD REPAIRER, Mi Consulting Unavailable Red, Fredis Chi Referring Unavailable Red, Fredis Chi Primary Care Unavailable Red, Fredis Chi Attending Unavailable Velasco, Daysi Attending Unavailable Red, Fredis Chi Primary Care Unavailable Velasco, Daysi Referring Unavailable Velasco, Daysi Attending Unavailable Red, Fredis Chi Primary Care Unavailable Velasco, Daysi Referring Unavailable Red, Fredis Chi Primary Care Unavailable Velasco, Daysi Attending Unavailable Velasco, Daysi Referring Unavailable Red, Fredis Chi Primary Care Unavailable Esteban, Samson Referring Unavailable Esteban, Samson Attending Unavailable Red, Fredis Chi Primary Care Unavailable Velasco, Daysi Attending Unavailable Velasco, Daysi Referring Unavailable Esteban, Samson Referring Unavailable Esteban, Samson Attending Unavailable Red, Fredis Chi Primary Care Unavailable Tiara Alston Attending Unavailable Red, Fredis Chi Primary Care Unavailable Red, Fredis Chi Primary Care Unavailable Roof Wagner HINTON Attending Unavailable Red, Fredis Chi Referring Unavailable Esteban, Samson Referring Unavailable Esteban, Samson Consulting Unavailable Raven Ribeiro Attending Unavail able Red, Fredis Chi Primary Care Unavailable Red, Fredis Chi Attending Unavailable Red, Fredis Chi Referring Unavailable Red, Fredis Chi Primary Care Unavailable Red, Fredis Chi Primary Care Unavailable Red, Fredis Chi Attending Unavailable Esteban, Samson Referring Unavailable Esteban, Samson Consulting Unavailable Esteban, Samson Attending Unavailable Red, Fredis Chi Primary Care Unavailable Red, Fredis Chi Primary Care Unavailable Red, Fredis Chi Attending Unavailable Meno Daysi Attending Unavailable Red, Fredis Chi Primary Care Unavailable Red, Fredis Chi Referring Unavailable Red, Fredis Chi Primary Care Unavailable Esteban, Samson Attending Unavailable Red, Fredis Chi Referring Unavailable Red, Fredis Chi Referring Unavailable Red, Fredis Chi Primary Care Unavailable Mi Hernandez NP Attending Unavailable Esteban, Samson Attending Unavailable Red, Fredis Chi Primary Care Unavailable Kriss Daysi Attending Unavailable Red, Fredis Chi Referring Unavailable Red, Fredis Chi Primary Care Unavailable Red, Fredis Chi Primary Care Unavailable Kriss Daysi Attending Unavailable Esteban, Samson Referring Unavailable Esteban, Samson Attending Unavailable Red, Fredis Chi Primary Care Unavailable Red, Fredis Chi Primary Care Unavailable Red, Fredis Chi Attending Unavailable Roof Wagner BROWN Attending Provider Allergies Allergy Classification Reported Allergen(s) Allergy Type Date of Onset Reaction(s) Facility (5 sources) Hmg-Coa Reductase Inhibitors (Statins) drug allergy flu like symptoms [facility] Work Phone: (5 sources) rosuvastatin Drug Allergy 5 flu like symptoms [facility] Work Phone: (20 sources) Adhesive Tape; Translations: [adhesive tape] Propensity to adverse reactions 1 skin tears [facility] (20 sources) rosuvastatin Drug Allergy 5 Flu like symptoms [facility] (2 sources) Adhesive Tape-Silicones Drug Allergy 2 Rash [facility] (13 sources) Adhesive Tape Drug Allergy 9 [facility] (1 source) rosuvastatin Drug Allergy 5 [facility] Repository Medications Current Medications Medication Drug Class(es) Dates Sig (Normalized) Sig (Original) acetaminophen 500 mg oral tablet (20 sources) Start: 05-16-2024 take 2 tablets by mouth every eight hours acetaminophen (Tylenol) 500 MG tablet Take 2 tablets (1,000 mg) by mouth every 8 hours. 05/16/2024 Active Start: 05-16-2024 End: 06-06-2024 take 2 capsules by mouth every eight hours Acetaminophen 500 mg capsule Discontinued 1000 mg PO EVERY 8 HOURS May 16, 2024 12:00am June 06, 2024 7:15pm pain Start: 05-10-2024 End: 05-16-2024 take 1 tablet by mouth every eight hours aspirin 81 mg delayed release oral tablet (20 sources) Platelet Aggregation Inhibitor, Nonsteroidal Anti-inflammatory Drug Start: 10-02-2024 take 1 tablet by mouth once daily Aspirin (Adult Aspirin Regimen) 81 mg tablet,delayed release (DR/EC) Active 81 mg PO daily October 02, 2024 12:04pm blood thinner Start: 05-16-2024 End: 10-02-2024 Aspirin (Adult Aspirin Regim en) 81 mg tablet,delayed release (DR/EC) Discontinued 325 mg PO daily May 16, 2024 12:00am October 02, 2024 12:04pm blood thinner Start: 05-11-2024 End: 05-17-2025 aspirin 81 MG chewable table t Chew 4 tablets (325 mg) daily. 05/17/2024 05/17/2025 Active Start: 03-23-2024 End: 05-16-2024 take 1 tablet by mouth once daily Aspirin (Adult Aspirin Regimen) 81 mg tablet,delayed release (DR/EC) Discontinued 81 mg PO daily March 23, 2024 1:00am May 16, 2024 12:58pm Start: 12-18-2016 take 1 tablet by tres once daily ASPIRIN EC 81 MG TBEC One tablet by mouth daily ASPIRIN [id number] Charity Landis RN Start: 12-18-2016 End: 05-16-2024 take 1 tablet by mouth once daily ASPIRIN EC 81 MG TBEC One tablet by mouth daily ASPIRIN [id number] Charity Landis RN Start: 10-06-2012 End: 11-21-2014 take 1 tablet by mouth once daily ASPIRIN 81 MG TABS One tablet by mouth daily ASPIRIN [id number] Josias Turk MD Start: 04-03-2009 aspirin(ECOTRI N LOW STRENGTH 81 MG TAB) Take one(1) tablet three times per week 0 04/03/2009 Active ASPIRIN 81 MG TA BS ASPIRIN [id number] Luis Escamilla DO Comment on above: Take one(1) tablet t hree times per week atorvastatin 10 mg oral tablet (20 sources) HMG-CoA Reductase Inhibitor Start: take 4 tablets by mouth once daily Atorvastatin 10 mg tablet Active 40 mg PO daily May 16, 2024 12:00am cholesterol Start: 05-11-2024 End: 05-16-2024 take 1 tablet by mouth once daily atorvastatin (Lipitor) 40 MG tablet Take 1 tablet (40 mg) by mouth Nightly. 05/16/2024 Active Start: 03-23-2024 End: 05-16-2024 take 5 mg by mouth once daily Atorvastatin 10 mg table t Discontinued 5 mg PO daily 90 2 March 23, 2024 1:00am May 16, 2024 12:58pm Start: 01-06-2021 End: 03-23-2024 Atorvastatin 40 mg tablet Discontinued 20 mg PO AT BEDTIME January 06, 2021 3:55pm March 23, 2024 5:05pm cholesterol Start: 01-06-2021 take 20 mg by mouth at bedtime Atorvastatin Active 20 MG PO AT BEDTIME January 06, 2021 3:55pm Start: 07-01-2017 End: 01-06-2021 take 1 tablet by mouth at bedtime Atorvastatin 40 MG tablet Discontinued 40 mg PO AT BEDTIME July 01, 2017 12:00am January 06, 2021 3:58pm cholesterol Start: 05-07-2014 take 1 tablet by tres th once daily ATORVASTATIN CALCIUM 40 MG TABS One tablet by mouth daily ATORVASTATIN CALCIUM [id number] Josias Turk MD End: 05-16-2024 Calcium Carb-Vitamin D3-Vit K2 (20 sources) Start: 12-20-2017 take 1 tablet by mouth once daily Calcium Carb-Vitamin D3-Vit K2 Active 1 TABLET PO DAILY December 20, 2017 1:41pm Start: 12-20-2017 take 1 tablet by tres once daily Calcium Carb-Vitamin D3-Vit K2 Active 1 TABLET PO DAILY December 20, 2017 12:41pm Start: 12-20-2017 take 2 tablets by mo [facility] once daily Calcium Carb-Vitamin D3-Vit K2 Active 2 TABLET PO DAILY December 20, 2017 12:41pm Start: 12-20-2017 take 2 tablets by mo [facility] once daily Calcium Carb-Vitamin D3-Vit K2 Active 2 TABLET PO DAILY December 20, 2017 1:41pm Start: 12-20-2017 End: 12-20-2017 take 1 tablet by mouth once daily Calcium Carb-Vitamin D3-Vit K2 Discontinued 1 TABLET PO DAILY December 20, 2017 8:45am December 20, 2017 1:44pm Start: 12-20-2017 End: 12-20-2017 take 1 tablet by mouth once daily Calcium Carb-Vitamin D3-Vit K2 Discontinued 1 TABLET PO DAILY December 19, 2017 11:00pm December 20, 2017 12:44pm Start: 12-20-2017 End: 12-20-2017 take 1 tablet by mouth once daily Calcium Carb-Vitamin D3-Vit K2 Discontinued 1 TABLET PO DAILY December 20, 2017 12:00am December 20, 2017 1:44pm Drug or medicament (substance) (4 sources) empagliflozin 25 mg oral tablet (20 sources) Sodium-Glucose Cotransporter 2 Inhibitor Start: 07-02-19 End: 05-17-19 take 1 tablet by mouth once daily Empagliflozin (Jardiance) 25 mg tablet Active 25 mg PO DAILY December 20, 2017 12:00am ferrous sulfate 325 mg oral tablet (20 sources) Start: 05-18-19 End: 05-17-19 ferrous sulfate 325 (65 Fe) MG tablet Take 1 tablet (325 mg) by mouth every 48 hours. Do not start before May 17, 2024. 05/17/2024 Active Start: 05-17-2024 End: 05-16-2024 Start: 05-16-2024 take 1 tablet by tres th every other day Ferrous Sulfate (Ferosul) 325 mg (65 mg iron) tablet Active 325 mg PO EVERY OTHER DAY May 16, 2024 12:00am iron supplement 3 ml insulin glargine 100 unt/ml / lixisenatide 0.033 mg/ml pen injector (20 sources) Insulin Analog Start: 07-06-2024 Insulin Glargi ne-Lixisenatide (Soliqua 100/33) 100 unit-33 mcg/mL insulin pen Active 45 U SC EVERY MORNING July 06, 2024 10:19am diabetes Start: 01-21-2022 End: 07-06-2024 Insulin Glargine-Lixisenatid e (Soliqua 100/33) 100 unit-33 mcg/mL insulin pen Discontinued 32 U SC EVERY MORNING January 21, 2022 3:24pm July 06, 2024 10:19am diabetes Start: 01-21-2022 Insulin Glargi ne-Lixisenatide (Soliqua 100/33) 100 unit-33 mcg/mL insulin pen Active 45 UNIT SC EVERY MORNING January 21, 2022 3:24pm Start: 01-21-2022 Insulin Glargi ne-Lixisenatide (Soliqua 100/33) 100 unit-33 mcg/mL insulin pen Active 38 UNIT SC EVERY MORNING January 21, 2022 3:24pm Start: 01-06-2021 End: 01-21-2022 Insulin Glargine-Lixisenatid e (Soliqua 100/33) 100 unit-33 mcg/mL insulin pen Discontinued 40 U SC EVERY MORNING January 06, 2021 1:00am January 21, 2022 3:24pm End: 05-16-2024 insulin glargine-lixisenatid e (Soliqua) 100-33 UNT-MCG/ML pen Inject 45 Units under the skin every morning (before breakfast). Active meclizine hydrochloride 12.5 mg oral tablet (4 sources) Antiemetic Start: 09-08-2024 take 1 tablet by mouth three times daily as needed for dizziness Meclizine 12.5 mg tablet Active 12.5 mg PO THREE TIMES A DAY as needed for dizziness 10 0 September 08, 2024 12:00am metFORMIN hydrochloride 1000 mg oral tablet (20 sources) Biguanide Start: 10-02-2024 take 1 tablet by mouth twice daily Metformin 1,000 mg tablet Active 1000 mg PO TWICE A DAY October 02, 2024 12:00am Start: 12-20-2017 End: 01-21-2022 take 2 tablets by mouth twice daily Metformin 500 mg tablet Discontinued 1000 mg PO TWICE A DAY December 20, 2017 12:00am January 21, 2022 3:23pm Start: 12-20-2017 End: 01-21-2022 take 1000 mg by mouth twice daily Metformin Discontinued 1000 MG PO TWICE A DAY December 20, 2017 12:00am January 21, 2022 3:23pm Start: 02-12-2013 End: 06-06-2024 take 1 tablet by mouth twice daily Metformin 1,000 mg tablet Discontinued 1000 mg PO TWICE A DAY January 21, 2022 1:00am June 06, 2024 7:17pm hold for 48 hrs. resume 04/26/24 Start: 10-06-2012 take 2 tablets by mo uth twice daily METFORMIN HCL 500 MG TABS Two tablets by mouth twice daily METFORMIN HCL [id number] Josias Turk MD Start: 10-06-2012 take 2 tablets by mo uth once daily METFORMIN HCL 500 MG TABS Two tablets by mouth daily METFORMIN HCL [id number] Josias Turk MD Start: 02-15-2012 take 2 tablets by mo uth every hour metFORMIN ER 500 mg 24 hr tablet Take by mouth two tablets every moning 60 tablet 11 02/15/2012 Active Start: 05-12-2011 METFORMIN HCL 500 MG TABS METFORMIN HCL [id number] Luis Escamilla DO Comment on above: Take by mouth two ta blets every moning metoprolol tartrate 25 mg oral tablet (20 sources) beta-Adrenergic Soni Start: 06-06-2024 Metoprolol Tartrate 25 mg Tablet Active 12.5 mg PO TWICE A DAY 30 30 0 June 06, 2024 12:00am Start: 05-12-2024 End: 06-22-2024 take 1 tablet by mouth twice daily Metoprolol Tartrate 25 mg tablet Discontinued 25 mg PO TWICE A DAY May 16, 2024 12:00am June 06, 2024 7:17pm BP/pulse Start: 05-15-2013 End: 05-16-2024 take 2 tablets by mouth twice daily Metoprolol Succinate (Toprol Xl) 25 mg tablet extended release 24 hr Discontinued 12.5 mg PO TWICE A DAY December 20, 2017 12:00am January 12, 2020 4:19pm Start: 10-06-2012 End: 06-06-2024 take 2 tablets by mouth once daily Metoprolol Succinate (Toprol Xl) 25 mg tablet extended release 24 hr Discontinued 12.5 mg PO DAILY January 12, 2020 4:18pm June 06, 2024 7:17pm Start: 10-17-2009 METOPROLOL TAR TRATE 25 MG TAB Take one(1) tablet two(2) times daily. 0 10/17/2009 Active take 1 tablet by tres th once daily metoprolol succinate XL (Toprol-XL) 25 MG 24 hr tablet Take 12.5 mg by mouth daily. Do not crush or chew. Active METOPROLOL SUCCI HUNTER ER 25 MG SU03O-ENS METOPROLOL SUCCINATE [id number] Luis Escamilla DO Comment on above: Take one(1) tablet t wo(2) times daily. 24 hr mirabegron 50 mg extended release oral tablet (20 sources) beta3-Adrenergic Agonist Start: 10-02-2024 take 1 tablet by mouth once daily Mirabegron (Myrbetriq) 50 mg tablet extended release 24 hr Active 50 mg PO daily October 02, 2024 12:00am Start: 01-12-2020 End: 01-06-2021 take 1 tablet by mouth once daily Mirabegron (Myrbetriq) 50 mg tablet extended release 24 hr Discontinued 50 mg PO DAILY January 12, 2020 1:00am January 06, 2021 3:57pm Start: 12-20-2017 End: 12-20-2017 take 1 tablet by mouth once daily Mirabegron (Myrbetriq) 50 mg tablet extended release 24 hr Discontinued 50 mg PO DAILY December 20, 2017 12:00am December 20, 2017 1:43pm Start: 12-21-2016 take 1 tablet by tres th once daily MYRBETRIQ 50 MG [id number] One tablet by mouth daily MIRABEGRON [id number] Josias Turk MD Propylene glycol (8 sources) Propylene Glycol (LUBRICANT EYE DROP OP) Administer into affected eye(s) as needed. Both eyes Active Propylene Glycol (Lubricant Eye (Propyl Glycol)) 0.6 % drops (1 source) Start: 10-02-2024 take 0.6 drop(s) into the eye(s) once daily as needed Propylene Glycol (Lubricant Eye (Propyl Glycol)) 0.6 % drops Active 1 NMA OPHTHALMIC daily as needed October 02, 2024 12:00am Vibegron 75 MG tablet (11 sources) take 1 tablet by mouth once daily Vibegron 75 MG tablet Take 1 tablet by mouth daily. Active (2 sources) Completed/Discontinued Medications Medication Drug Class(es) Dates Sig (Normalized) Sig (Original) acetaminophen 325 mg / HYDROcodone bitartrate 5 mg oral tablet (20 sources) Opioid Agonist Start: 01-08-2018 End: 01-10-2018 Hydrocodone-Acetami nophen 1 TABLET tablet Discontinued 1 {tbl} PO AT BEDTIME 7 2 0 January 08, 2018 1:00am January 09, 2018 1:00am January 10, 2018 1:12am Pain, unspecified Start: 01-08-2018 End: 01-10-2018 take 1 tablet by mouth at bedtime Hydrocodone-Acetaminophen Discontinued 1 TABLET PO AT BEDTIME 7 2 January 08, 2018 1:00am January 10, 2018 1:12am Start: 07-14-2017 End: 12-20-2017 Hydrocodone-Acetaminophen 1 EACH tablet Discontinued 1 NMA PO EVERY 4 HOURS NEEDED as needed for Pain 14 5 0 July 14, 2017 11:43am December 20, 2017 8:49am Malignant neoplasm of prostate Start: 07-14-2017 End: 12-20-2017 Hydrocodone-Acetaminophen Di scontinued 1 EACH PO EVERY 4 HOURS NEEDED 14 5 July 14, 2017 11:43am December 20, 2017 8:49am 0.5 ml albiglutide 100 mg/ml pen injector (5 sources) TANZEUM 50 MG PE N One injection once weekly. ALBIGLUTIDE [id number] Alexandra Baum FOOTBALL PAD REPAIRER 20 ml albumin human, shelter 250 mg/ml injection (4 sources) Human Serum Albumin Start: 05-11-19 End: 05-12-19 albuterol 0.833 mg/ml / ipratropium bromide 0.167 mg/ml inhalation solution (2 sources) Anticholinergic, beta2-Adrenergic Agonist Start: 05-11-19 End: 05-17-19 amLODIPine 5 mg oral tablet (16 sources) Dihydropyridine Calcium Channel Soni Start: 04-25-19 End: 06-07-19 take 1 tablet by mouth once daily Amlodipine 5 mg tablet Discontinued 5 mg PO daily 21 11April 24, 2024 1:00am June 06, 2024 7:16pm calcium (2 sources) Phosphate Binder, Calcium Start: 10-07-19 take 1 tablet by mouth once daily CALCIUM 500/VITAMIN D TABS One tablet by mouth daily CALCIUM CARBONATE-VITAMIN D TABS [id number] Josias Turk MD CALCIUM 500/KATIE MIN D TABS CALCIUM CARBONATE-VITAMIN D TABS [id number] Luis Escamilla DO Calcium 600 + Vit D Tablet (20 sources) Start: 02-12-2013 End: 12-20-2017 Calcium 600 + Vit D Tablet Discontinued 600 MG PO TWICE A DAY February 12, 2013 10:47pm December 20, 2017 8:44am Start: 02-12-2013 End: 12-20-2017 Calcium 600 + Vit D Tablet D iscontinued 600 mg PO TWICE A DAY February 12, 2013 1:00am December 20, 2017 8:44am supplement Start: 02-12-2013 End: 12-20-2017 Calcium 600 + Vit D Tablet D iscontinued 600 mg PO TWICE A DAY February 12, 2013 1:00am December 20, 2017 8:44am Start: 02-12-2013 End: 12-20-2017 Calcium 600 + Vit D Tablet D iscontinued 600 MG PO TWICE A DAY February 12, 2013 12:00am December 20, 2017 7:44am Start: 02-12-2013 End: 12-20-2017 Calcium 600 + Vit D Tablet D iscontinued 600 MG PO TWICE A DAY February 12, 2013 1:00am December 20, 2017 8:44am Calcium Carb-Cholecalciferol (CALCIUM 500 + D3 PO) (9 sources) End: 07-05-2024 take 1 tablet by mouth once daily Calcium Carb-Cholecalciferol (CALCIUM 500 + D3 PO) Take 1 tablet by mouth daily. 07/05/2024 Discontinued (Therapy completed) End: 06-22-2024 take 1 tablet by mouth once daily Calcium Carb-Cholecalciferol (CALCIUM 500 + D3 PO) Take 1 tablet by mouth daily. 06/22/2024 Discontinued (Therapy completed) take 1 tablet by tres th once daily Calcium Carb-Cholecalciferol (CALCIUM 500 + D3 PO) Take 1 tablet by mouth daily. Active Calcium Carb-Vitamin D3-Vit K2 500 mg calcium- 200 unit-90 mcg tablet (20 sources) Start: 12-20-2017 End: 07-06-2024 Calcium Carb-Vitamin D3-Vit K2 500 mg calcium- 200 unit-90 mcg tablet Discontinued 1 {tbl} PO DAILY 0 December 20, 2017 1:41pm July 06, 2024 10:01am supplement Start: 12-20-2017 End: 07-06-2024 Calcium Carb-Vitamin D3-Vit K2 500 mg calcium- 200 unit-90 mcg tablet Discontinued 1 {tbl} PO DAILY December 20, 2017 1:41pm July 06, 2024 10:01am Start: 12-20-2017 Calcium Carb-V itamin D3-Vit K2 500 mg calcium- 200 unit-90 mcg tablet Active 1 {tbl} PO DAILY December 20, 2017 1:41pm Start: 12-20-2017 End: 12-20-2017 Calcium Carb-Vitamin D3-Vit K2 500 mg calcium- 200 unit-90 mcg tablet Discontinued 1 {tbl} PO DAILY 0 December 20, 2017 12:00am December 20, 2017 1:44pm Start: 12-20-2017 End: 12-20-2017 Calcium Carb-Vitamin D3-Vit K2 500 mg calcium- 200 unit-90 mcg tablet Discontinued 1 {tbl} PO DAILY December 20, 2017 12:00am December 20, 2017 1:44pm calcium carbonate 1250 mg / cholecalciferol 125 unt oral tablet (10 sources) Vitamin D Start: 10-06-2012 take 1 tablet by mouth once daily CALCIUM 500/VITAMIN D TABS One tablet by mouth daily CALCIUM CARBONATE-VITAMIN D TABS [id number] Josias Turk MD Start: 04-08-2010 take 1 tablet by tres once daily calcium carbonate 600 mg-cholecalciferol 200 units (CALCIUM 600 + D,3,) 600 mg(1,500mg) -200 unit ORAL Tab Take one(1) tablet daily. 0 04/08/2010 Active CALCIUM 500/KATIE MIN D TABS CALCIUM CARBONATE-VITAMIN D TABS [id number] Luis Escamilla DO Comment on above: Take one(1) tablet d aily. calcium chloride 0.0014 meq/ml / potassium chloride 0.004 meq/ml / sodium chloride 0.103 meq/ml / sodium lactate 0.028 meq/ml injectable solution (10 sources) Start: 05-10-2024 End: 05-16-2024 100 ml calcium gluconate 20 mg/ml injection (2 sources) Start: 05-10-2024 End: 05-16-2024 carbidopa 25 mg / levodopa 100 mg oral tablet (20 sources) Aromatic Amino Acid Decarboxylation Inhibitor, Aromatic Amino Acid Start: 05-11-2024 End: 05-16-2024 Start: 05-10-2024 End: 05-11-2024 Start: 01-12-2020 Carbidopa-Levo dopa 25-100 mg tablet Active 1 {tbl} PO THREE TIMES A DAY January 12, 2020 1:00am Parkinsons Start: 01-12-2020 take 1 tablet by [facility] three times daily Carbidopa-Levodopa Active 1 TABLET PO THREE TIMES A DAY January 12, 2020 1:00am Start: 12-21-2018 End: 12-21-2018 Carbidopa-Levodopa 10-100 mg tablet Discontinued 1 {tbl} PO THREE TIMES A DAY December 21, 2018 12:00am December 21, 2018 2:40pm Start: 12-21-2018 End: 12-21-2018 take 1 tablet by mouth three times daily Carbidopa-Levodopa Discontinued 1 TABLET PO THREE TIMES A DAY December 21, 2018 12:00am December 21, 2018 2:40pm ceFAZolin 2000 mg injection (2 sources) Cephalosporin Antibacterial Start: 05-10-2024 End: 05-12-2024 take 2000 mg intravenously every eight hours Chlorhexidine (7 sources) Start: 05-11-2024 End: 05-16-2024 Start: 05-10-2024 End: 05-16-2024 Start: 04-25-2024 End: 04-25-2024 chlorhexidine (Peridex) 0.12 % solution Use 15 mL in the mouth or throat Once for 1 dose. Swish for 30 seconds and spit out the night before surgery. Do not swallow. 15 mL 04/25/2024 04/25/2024 Active cholecalciferol 9.52 unt/ml / glucose 357 mg/ml oral gel (2 sources) Vitamin D Start: 05-10-2024 End: 05-16-2024 CHROMIUM TABS (10 sources) Standardized Chemical Allergen Start: 05-15-2013 End: 11-21-2014 take 1 tablet by mouth once daily CHROMIUM GTF TABS One tablet by mouth daily CHROMIUM TABS [id number] Josias Turk MD Start: 05-15-2013 take 1 tablet by tres th once daily CHROMIUM GTF TABS One tablet by mouth daily CHROMIUM TABS [id number] Josias Turk MD Start: 05-15-2013 take 1 tablet by tres th once daily CHROMIUM GTF TABS One tablet by mouth daily CHROMIUM TABS [id number] Josias Turk MD Start: 05-15-2013 End: 11-21-2014 take 1 tablet by mouth once daily CHROMIUM GTF TABS One tablet by mouth daily CHROMIUM TABS [id number] Josias Turk MD cinnamon bark 500 mg oral capsule (20 sources) Start: 07-01-2017 End: 01-06-2021 take 1 capsule by mouth twice daily Cinnamon Bark 500 MG capsule Discontinued 1000 mg PO TWICE A DAY July 01, 2017 12:00am January 06, 2021 3:57pm supplement Start: 07-01-2017 End: 01-06-2021 take 1000 mg by mouth twice daily Cinnamon Bark Discontinued 1000 MG PO TWICE A DAY July 01, 2017 12:00am January 06, 2021 3:57pm Start: 12-21-2016 take 2 tablets by mo uth once daily CINNAMON 500 MG CAPS Two tablets by mouth daily CINNAMON [id number] Josias Turk MD Start: 05-15-2013 End: 11-21-2014 take 1 tablet by mouth twice daily CINNAMON 500 MG CAPS One tablet by mouth twice daily CINNAMON [id number] Josias Turk MD ciprofloxacin 500 mg oral tablet (20 sources) Quinolone Antimicrobial Start: 07-14-2017 End: 12-20-2017 take 1 tablet by mouth twice daily Ciprofloxacin Hcl 500 MG tablet Discontinued 500 mg PO TWICE A DAY July 14, 2017 12:00am December 20, 2017 1:43pm CPAP (2 sources) Start: 10-26-2007 CPAP Use as directed. 0 10/26/2007 Active Comment on above: Use as directed. docusate sodium 100 mg oral capsule (20 sources) Start: 07-14-2017 End: 12-20-2017 take 1 capsule by mouth twice daily Docusate Sodium 100 MG capsule Discontinued 100 mg PO TWICE A DAY July 14, 2017 12:00am December 20, 2017 1:43pm docusate sodium 50 mg / sennosides, shelter 8.6 mg oral tablet (2 sources) Start: 05-10-2024 End: 05-16-2024 0.5 ml dulaglutide 3 mg/ml auto-injector (20 sources) GLP-1 Receptor Agonist Start: 07-01-2017 End: 01-06-2021 Dulaglutide 1.5 MG/0.5 ML pen injector Discontinued 5 mg SQ SA July 01, 2017 12:00am January 06, 2021 3:56pm diabetes Start: 07-01-2017 End: 01-06-2021 Dulaglutide Discontinued 5 M G SQ SA July 01, 2017 12:00am January 06, 2021 3:56pm DULoxetine 20 mg delayed release oral capsule (20 sources) Serotonin and Norepinephrine Reuptake Inhibitor Start: 01-12-2020 End: 01-06-2021 take 1 capsule by mouth once daily Duloxetine 20 mg capsule,delayed release(DR/EC) Discontinued 20 mg PO DAILY January 12, 2020 1:00am January 06, 2021 3:57pm dutasteride 0.5 mg oral capsule (10 sources) 5-alpha Reductase Inhibitor Start: 11-06-2013 End: 11-21-2014 take 1 tablet by mouth once daily AVODART 0.5 MG CAPS One tablet by mouth daily DUTASTERIDE [id number] Josias Turk MD EPINEPHrine 5mg in 0.9% sodium chloride 250 mL infusion (weight-based) (2 sources) Start: 05-10-2024 End: 05-11-2024 EXENATIDE SOLN (20 sources) GLP-1 Receptor Agonist Start: 05-15-2013 take 10 ug by subcutaneous injection twice daily BYETTA 10 MCG PEN SOPN SQ twice daily EXENATIDE SOLN [id number] Josias Turk MD Start: 05-15-2013 inject 10 ug by subc utaneous injection twice daily BYETTA 10 MCG PEN SOPN SQ twice daily EXENATIDE SOLN [id number] Josias Turk MD Start: 05-15-2013 End: 12-21-2016 inject 10 ug by subcutaneous injection twice daily BYETTA 10 MCG PEN SOPN SQ twice daily EXENATIDE SOLN [id number] Josias Turk MD Start: 05-15-2013 inject 10 ug by subc utaneous injection twice daily BYETTA 10 MCG PEN SOPN SQ twice daily EXENATIDE SOLN [id number] Josias Turk MD Start: 10-06-2012 BYETTA 10 MCG PEN SOPN as directed EXENATIDE SOLN [id number] Josias Turk MD Start: 10-06-2012 End: 05-15-2013 BYETTA 10 MCG PEN SOPN as directed EXENATIDE SOLN [id number] Josias Turk MD Start: 10-06-2012 BYETTA 10 MCG PEN SOPN as directed EXENATIDE SOLN [id number] Josias Turk MD Start: 10-06-2012 End: 05-15-2013 BYETTA 10 MCG PEN SOPN as directed EXENATIDE SOLN [id number] Josias Turk MD Start: 10-06-2012 BYETTA 10 MCG PEN SOPN as directed EXENATIDE SOLN [id number] Josias Turk MD Start: 10-06-2012 End: 05-15-2013 BYETTA 10 MCG PEN SOPN as directed EXENATIDE SOLN [id number] Josias Turk MD Start: 10-28-2011 exenatide (BYE TTA) 10 mcg/0.04 mL PnIj Inject twice daily before meals 1 Pen 11 10/28/2011 Active End: 10-06-2012 BYETTA 10 MCG PEN SOPN 10/06 EXENATIDE SOLN [id number] Josias Turk MD End: 10-06-2012 BYETTA 10 MCG PEN SOPN 10/06 EXENATIDE SOLN [id number] Josias Turk MD BYETTA 10 MCG PE N SOPN EXENATIDE SOLN [id number] Luis Clayton Escamilla DO BYETTA 10 MCG PE N SOPN EXENATIDE SOLN [id number] Luis Clayton Escamilla DO End: 10-06-2012 BYETTA 10 MCG PEN SOPN 10/06 EXENATIDE SOLN [id number] Josias Turk MD Comment on above: Inject twice daily b efore meals famotidine 40 mg oral tablet (20 sources) Histamine-2 Receptor Antagonist Start: 8 End: 8 take 1 tablet by mouth once daily as needed Famotidine 40 MG tablet Discontinued 40 mg PO DAILY as needed for Indigestion July 01, 2017 12:00am December 20, 2017 1:43pm Start: 12-21-2016 take 1 tablet by tres once daily FAMOTIDINE 40 MG TABS One tablet by mouth daily FAMOTIDINE [id number] Josias Turk MD finasteride 5 mg oral tablet (20 sources) 5-alpha Reductase Inhibitor Start: 12-20-2017 End: 12-20-2017 take 1 tablet by mouth once daily Finasteride 5 mg tablet Discontinued 5 mg PO DAILY December 20, 2017 12:00am December 20, 2017 1:43pm Start: 07-01-2017 End: 07-14-2017 take 0.5 mg by mouth once daily Finasteride 1 MG table t Discontinued 0.5 mg PO DAILY July 01, 2017 12:00am July 14, 2017 11:50am incontinence Start: 07-01-2017 End: 07-14-2017 take 0.5 mg by mouth once daily Finasteride Discontinu ed 0.5 MG PO DAILY July 01, 2017 12:00am July 14, 2017 11:50am Start: 05-07-2014 take 1 tablet by tres th once daily FINASTERIDE 5 MG TABS One tablet by mouth daily FINASTERIDE [id number] Raven Thrasher PA-C fluticasone propionate 0.05 mg/actuat metered dose nasal spray (10 sources) Corticosteroid End: 05-15-2013 FLUTICASONE PROPIONATE 50 MCG/ACT SUSP once daily FLUTICASONE PROPIONATE [id number] Deni Peoples Tabitha furosemide 40 mg oral tablet (20 sources) Loop Diuretic Start: 05-16-2024 End: 06-06-2024 take 1 tablet by mouth once daily Furosemide 40 mg tablet Discontinued 40 mg PO DAILY May 16, 2024 12:00am June 06, 2024 7:16pm fluid Start: 05-15-2024 End: 05-16-2024 gabapentin 300 mg oral capsule (12 sources) Anti-epileptic Agent Start: 01-07-2009 gabapenti n(NEURONTIN 300 MG CAP) Takes 1-2 daily 0 01/07/2009 Active End: 10-06-2012 GABAPENTIN TABS G ABAPENTIN TABS [id number] Josias Turk MD GABAPENTIN TABS GABAPENTIN TABS [id number] Luis Escamilla DO End: 10-06-2012 GABAPENTIN TABS G ABAPENTIN TABS [id number] Josias Turk MD Comment on above: Takes 1-2 daily glimepiride 4 mg oral tablet (20 sources) Sulfonylurea Start: 10-06-2012 End: 12-21-2016 take 1 tablet by mouth twice daily GLIMEPIRIDE 2 MG TABS One tablet by mouth twice daily GLIMEPIRIDE [id number] Josias Turk MD Start: 02-15-2012 take 0.5 tablet by m outh once daily glimepiride 4 mg tablet Take by mouth 1/2 tab daily 15 tablet 11 02/15/2012 Active GLIMEPIRIDE 4 MG TABS GLIMEPIRIDE [id number] Luis Escamilla DO Comment on above: Take by mouth 1/2 ta b daily glucagon (rdna) 1 mg injecti on (2 sources) Antihypoglycemic Agent Start: 05-10-2024 End: 05-16-2024 50 ml glucose 50 mg/ml injec tion (4 sources) Start: 05-10-2024 End: 05-16-2024 Start: 05-10-2024 End: 05-16-2024 GLUCOSE BLOOD (2 sources) End: 10-06-2012 ACCU-CHEK CLARITZA STRP GLUCOSE BLOOD [id number] Josias Turk MD ACCU-CHEK CLARITZA STRP GLUCOSE BLOOD [id number] Luis Escamilla DO GLUCOSE BLOOD (8 sources) ACCU-CHEK CLARITZA STRP GLUCOSE BLOOD [id number] Luis Escamilla DO End: 10-06-2012 ACCU-CHEK CLARITZA STRP GLUCOSE BLOOD [id number] Josias Turk MD glycerin 2 mg/ml / hypromellose 2 mg/ml / polyethylene glycol 400 10 mg/ml ophthalmic solution (12 sources) Non-Standardized Chemical Allergen Start: 05-16-2024 End: 06-06-2024 Peg 415-Ecjnqadwrubf-Lshknlgl (Artificial Tears(Th-Buqg-Lqof)) 1-0.2-0.2 % drops Discontinued 1 NMA EACH EYE THREE TIMES A DAY as needed for dry eyes May 16, 2024 12:00am June 06, 2024 7:17pm 0.5 ml heparin sodium, porcine 12444 unt/ml prefilled syringe (2 sources) Unfractionated Heparin, Anti-coagulant Start: 05-11-2024 End: 05-16-2024 hydroCHLOROthiazide 12.5 mg oral capsule (12 sources) Thiazide Diuretic Start: 06-01-2011 take 1 capsule by mouth once daily Hydrochlorothiazide 12.5 mg ORAL capsule Take 1 capsule by mouth once daily. 90 capsule 4 06/01/2011 Active End: 10-06-2012 HYDROCHLOROTHIAZIDE 12.5 MG TABS HYDROCHLOROTHIAZIDE [id number] Luis Escamilla DO Comment on above: Take 1 capsule by [facility] once daily. insulin glargine 100 unt/ml injectable solution (20 sources) Insulin Analog Start: End: inject 32 [IU] by subcutaneous injection once daily in the morning insulin glargine (Lantus) 100 UNIT/ML injection Inject 32 Units under the skin every morning. 05/17/2024 07/05/2024 Discontinued (Therapy completed) Start: 05-14-2024 End: 05-14-2024 Start: 05-14-2024 End: 05-14-2024 Start: 05-11-2024 End: 05-17-2025 Start: 10-06-2012 LANTUS SOLN as directed INSULIN GLARGINE SOLN [id number] Josias Turk MD Start: 10-06-2012 End: 12-21-2016 LANTUS SOLN as directed INSULIN GLARGINE SOLN [id number] Josias Turk MD Start: 10-06-2012 LANTUS SOLN as directed INSULIN GLARGINE SOLN [id number] Josias Turk MD Start: 05-15-2011 insulin glargi ne (LANTUS SOLOSTAR) 100 unit/mL (3 mL) SUBCUTANEOUS InPn Inject subcutaneously. 40 units at bedtime (may be more, as directed) 15 mL 11 05/15/2011 Active inject 45 [IU] by zaragoza bcutaneous injection once daily in the morning insulin glargine (Lantus) 100 UNIT/ML injection Inject 45 Units under the skin every morning. Active LANTUS SOLN INSU MARTIN GLARGINE SOLN [id number] Luis Escamilla DO Comment on above: Inject subcutaneousl y. 40 units at bedtime (may be more, as directed) 3 ml insulin lispro 100 unt/ml pen injector (20 sources) Insulin Analog Start: 05-16-2024 End: 06-06-2024 Insulin Lispro 100 unit/mL insulin pen Discontinued 14 U SC THREE TIMES A DAY May 16, 2024 12:00am June 06, 2024 7:16pm diabetes Start: 05-11-2024 End: 05-16-2025 inject 14 [IU] by subcutaneous injection three times daily at mealtime Insulin Lispro (Humalog) 100 UNIT/ML solution injection Inject 14 Units under the skin 3 times daily (with meals). 05/16/2024 06/22/2024 Discontinued (Therapy completed) insulin needles, DISPOSABLE, (PEN NEEDLE) 31 X 5/16 Ndle (2 sources) Start: 02-15-2012 insulin needle s, DISPOSABLE, (PEN NEEDLE) 31 X 5/16 Ndle Use as directed. 100 Each 02/15/2012 Active Comment on above: Use as directed. INSULIN PEN NEEDLE (2 sources) End: 10-06-2012 EASY TOUCH PEN NEEDLES 29G X 12MM INSULIN PEN NEEDLE [id number] Josias Turk MD EASY TOUCH PEN N EEDLES 29G X 12MM INSULIN PEN NEEDLE [id number] Luis Escamilla DO 100 ml insulin, regular, human 1 unt/ml injection (2 sources) Insulin Start: 05-10-2024 End: 05-11-2024 isopropyl alcohol 0.7 ml/ml medicated pad (2 sources) Start: 10-28-2011 Alcohol Swabs PadM use as directed 100 Each 10/28/2011 Active Comment on above: use as directed lidocaine 0.04 mg/mg medicated patch (2 sources) Antiarrhythmic, Amide Local Anesthetic Start: 05-10-2024 End: 05-16-2024 lisinopril 40 mg oral tablet (15 sources) Angiotensin Converting Enzyme Inhibitor Start: 06-01-2011 End: 12-21-2016 take 1 tablet by mouth once daily lisinopril (ZESTRIL) 40 mg ORAL tablet Take 1 tablet by mouth once daily. 90 tablet 4 06/01/2011 Active Comment on above: Take 1 tablet by tres once daily. magnesium hydroxide 80 mg/ml oral suspension (2 sources) Start: 05-13-2024 End: 05-15-2024 melatonin 3 mg oral tablet (16 sources) Start: 06-06-2024 End: 10-02-2024 take 1 tablet by mouth at bedtime Melatonin 3 mg Tablet Discontinued 3 mg PO AT BEDTIME 0 0 June 06, 2024 12:00am October 02, 2024 11:41am take 1 tablet by mouth once ellen y Melatonin 3 MG tablet dispersible Take 3 mg by mouth Nightly. Active Metoprolol(XL)Succ (19 sources) Start: 02-13-2013 End: 12-20-2017 take 12.5 mg by mouth twice daily Metoprolol(XL)Succ Discontinued 12.5 MG PO TWICE A DAY February 13, 2013 1:30am December 20, 2017 8:48am Start: 02-13-2013 End: 12-20-2017 take 12.5 mg by mouth twice daily Metoprolol(XL)Succ Discontinued 12.5 MG PO TWICE A DAY February 13, 2013 12:00am December 20, 2017 7:48am Start: 02-13-2013 End: 12-20-2017 take 12.5 mg by mouth twice daily Metoprolol(XL)Succ Discontinued 12.5 MG PO TWICE A DAY February 13, 2013 1:00am December 20, 2017 8:48am Metoprolol(XL)Succ tablet (12 sources) Start: 02-13-2013 End: 12-20-2017 take 1 tablet by mouth twice daily Metoprolol(XL)Succ tablet Discontinued 12.5 mg PO TWICE A DAY February 13, 2013 1:00am December 20, 2017 8:48am htn Start: 02-13-2013 End: 12-20-2017 take 1 tablet by mouth twice daily Metoprolol(XL)Succ tablet Discontinued 12.5 mg PO TWICE A DAY February 13, 2013 1:00am December 20, 2017 8:48am miconazole nitrate 20 mg/ml topical cream (20 sources) Azole Antifungal Start: 05-16-2024 End: 06-06-2024 Miconazole Nitrate (Antifungal (Miconazole)) 2 % cream Discontinued 1 NMA TOPICAL TWICE A DAY as needed for affected area May 16, 2024 12:00am June 06, 2024 7:17pm Start: 12-20-2017 End: 01-06-2021 Miconazole Nitrate 2 % cream Discontinued 1 NMA TOPICAL DAILY as needed for SKIN December 20, 2017 12:00am January 06, 2021 3:57pm Start: 02-12-2013 End: 12-20-2017 Miconazole Nitrate Discontin ued 1 APPLICATIO NOTE DAILY February 12, 2013 10:49pm December 20, 2017 8:48am Start: 02-12-2013 End: 12-20-2017 Miconazole Nitrate Discontin ued 1 APPLICATIO NOTE DAILY as needed for Itching February 12, 2013 1:00am December 20, 2017 8:48am Start: 02-12-2013 End: 12-20-2017 Miconazole Nitrate Discontin ued 1 APPLICATIO NOTE DAILY February 12, 2013 12:00am December 20, 2017 7:48am Start: 02-12-2013 End: 12-20-2017 Miconazole Nitrate Discontin ued 1 APPLICATIO NOTE DAILY February 12, 2013 1:00am December 20, 2017 8:48am Start: 10-06-2012 MICONAZOLE NIT RATE 2 % CREA as directed MICONAZOLE NITRATE [id number] Josias Turk MD Start: 03-01-2012 End: 10-06-2012 MICONAZOLE 7 2 % CREA once d aily in AM to genital area MICONAZOLE NITRATE [id number] Josias Turk MD Start: 03-01-2012 MICONAZOLE 7 2 % CREA once daily in AM to genital area MICONAZOLE NITRATE [id number] Deni Lu Start: 03-01-2012 End: 10-06-2012 MICONAZOLE 7 2 % CREA once d aily in AM to genital area MICONAZOLE NITRATE [id number] Deni Lu Miconazole Nitra te 2 % ointment Apply topically as needed. Active MULTIPLE VITAMIN (10 sources) Start: 11-06-2013 End: 11-21-2014 take 1 tablet by mouth once daily MULTIVITAMINS TABS One tablet by mouth daily MULTIPLE VITAMIN Josias Turk MD Start: 11-06-2013 take 1 tablet by tres th once daily MULTIVITAMINS TABS One tablet by mouth daily MULTIPLE VITAMIN Josias Turk MD Start: 11-06-2013 take 1 tablet by tres th once daily MULTIVITAMINS TABS One tablet by mouth daily MULTIPLE VITAMIN Josias Turk MD Start: 11-06-2013 End: 11-21-2014 take 1 tablet by mouth once daily MULTIVITAMINS TABS One tablet by mouth daily MULTIPLE VITAMIN Josias Turk MD mupirocin 0.02 mg/mg topical ointment (9 sources) RNA Synthetase Inhibitor Antibacterial Start: 05-10-2024 End: 05-14-2024 Start: 05-10-2024 End: 05-10-2024 Start: 04-25-2024 End: 05-16-2024 Start: 04-25-2024 mupirocin (Stacey troban) 2 % ointment Apply liberal amount per nostril the night before surgery and then again the morning of surgery 1 g 04/25/2024 Active 1 ml naloxone hydrochloride 0.4 mg/ml injection (2 sources) Opioid Antagonist Start: 05-10-2024 End: 05-16-2024 niacin 500 mg oral tablet (17 sources) Nicotinic Acid Start: 10-06-2012 End: 05-15-2013 take 0.5 tablet by mouth twice daily NIACIN 500 MG TABS One-half tablet by mouth twice daily NIACIN [id number] Josias Turk MD take 1 tablet by tres twice daily at mealtime niacin sustained release 500 mg tablet Indications: Type II or unspecified type diabetes mellitus without mention of complication, uncontrolled Take 500 mg by mouth twice daily with meals. 0 Active NIACIN 500 MG TA BS NIACIN [id number] Luis Escamilla DO Comment on above: Take 500 mg by mouth twice daily with meals. norepinephrine (Levophed) 16 mg in 0.9% sodium chloride 250 mL infusion (weight based) (premix) (2 sources) Start: 05-10-2024 End: 05-12-2024 [place] 9-Brn-Fma-Fish Oil (Fish Oil) 60-90-500 mg capsule (20 sources) Start: 01-21-2022 End: 12-30-2022 [place] 7-Ycr-Ulu-Fish Oil (Fish Oil) 60-90-500 mg capsule Discontinued 1 NMA PO DAILY January 21, 2022 1:00am December 30, 2022 10:41pm Start: 01-21-2022 End: 12-30-2022 take 1 capsule by mouth once daily [place] 0-Ohx-Qyf-Fish Oil (Fish Oil) 60-90-500 mg capsule Discontinued 1 CAP PO DAILY January 21, 2022 1:00am December 30, 2022 10:41pm Start: 01-21-2022 End: 12-30-2022 take 1 capsule by mouth once daily [place] 7-Mnx-Uhm-Fish Oil (Fish Oil) 60-90-500 mg capsule Discontinued 1 CAP PO DAILY January 21, 2022 12:00am December 30, 2022 9:41pm Start: 01-21-2022 take 1 capsule by [facility] once daily [place] 1-Hxq-Yqw-Fish Oil (Fish Oil) 60-90-500 mg capsule Active 1 CAP PO DAILY January 21, 2022 1:00am omega-3 acid ethyl esters (shelter) 1000 mg oral capsule (12 sources) Start: 12-21-2011 End: 12-20-2015 omega-3 acid ethyl esters (LOVAZA) 1 gram capsule Indications: Type II or unspecified type diabetes mellitus without mention of complication, uncontrolled Take 2 capsules by mouth twice daily. 120 capsule 11 12/21/2011 Active Comment on above: Take 2 capsules by [facility] twice daily. OMEGA-3 FATTY ACIDS CPDR (2 sources) OMEGA 3 CPDR OME GA-3 FATTY ACIDS CPDR [id number] Luis Escamilla DO End: 10-06-2012 OMEGA 3 CPDR OMEG A-3 FATTY ACIDS CPDR [id number] Josias Turk MD OMEGA-3 FATTY ACIDS CPDR (8 sources) OMEGA 3 CPDR OME GA-3 FATTY ACIDS CPDR [id number] Luis Escamilla DO End: 10-06-2012 OMEGA 3 CPDR OMEG A-3 FATTY ACIDS CPDR [id number] Josias Turk MD 24 hr oxybutynin chloride 5 mg extended release oral tablet (20 sources) Cholinergic Muscarinic Antagonist Start: 07-01-2017 End: 12-20-2017 take 1 tablet by mouth once daily Oxybutynin Chloride 5 MG tablet Discontinued 5 mg PO DAILY July 01, 2017 12:00am December 20, 2017 1:44pm bladder Start: 11-21-2014 End: 12-21-2016 take 1 tablet by mouth once daily OXYBUTYNIN CHLORIDE 5 MG TABS One tablet by mouth daily OXYBUTYNIN CHLORIDE [id number] Josias Turk MD oxyCODONE hydrochloride 5 mg oral tablet (16 sources) Opioid Agonist Start: 05-16-2024 End: 06-22-2024 take 1 tablet by mouth every six hours as needed for pain Oxycodone 5 mg tablet Discontinued 5 mg PO EVERY 6 HOURS as needed for pain 0 May 16, 2024 12:00am June 06, 2024 7:17pm Pain 7-10 pantoprazole 40 mg delayed release oral tablet (2 sources) Proton Pump Inhibitor Start: 05-12-2024 End: 05-16-2024 pantoprazole (ProtoNix) 40 mg in sodium chloride (PF) 0.9 % 10 mL injection (2 sources) Start: 05-10-2024 End: 05-11-2024 polyethylene glycol 3350 13743 mg powder for oral solution (2 sources) Osmotic Laxative Start: 05-11-2024 End: 05-16-2024 microencapsulated potassium chloride 20 meq extended release oral tablet (18 sources) Start: 05-16-2024 End: 06-22-2024 take 2 tablets by mouth once daily potassium chloride CR (Klor-Con M20) 20 MEQ ER tablet Take 2 tablets (40 mEq) by mouth daily. Do not crush or chew. While taking lasix. 05/16/2024 06/22/2024 Discontinued (Therapy completed) Start: 05-16-2024 End: 07-06-2024 take 2 tablets by mouth once daily Potassium Chloride (K-Tab) 20 mEq tablet extended release Discontinued 40 meq PO DAILY May 16, 2024 12:00am July 06, 2024 10:02am supplement Start: 05-11-2024 End: 05-16-2024 pravastatin sodium 40 mg oral tablet (5 sources) HMG-CoA Reductase Inhibitor Start: 05-07-2014 take 1 tablet by mouth at bedtime PRAVASTATIN SODIUM 40 MG TABS One tablet by mouth at bedtime. PRAVASTATIN SODIUM [id number] Raven Thrasher PA-C 100 ml propofol 10 mg/ml injection (2 sources) General Anesthetic Start: 05-10-2024 End: 05-10-2024 SITagliptin 100 mg oral tablet (20 sources) Dipeptidyl Peptidase 4 Inhibitor Start: 07-01-2017 End: 01-06-2021 take 1 tablet by mouth once daily Sitagliptin Phosphate 100 MG tablet Discontinued 100 mg PO DAILY July 01, 2017 12:00am November 15th, 2021 3:57pm diabetes take 1 tablet by mouth once ellen y JANUVIA 100 MG TABS One tablet by mouth daily SITAGLIPTIN PHOSPHATE [id number] Alexandra Baum [employer] 5 ml sodium chloride 9 mg/ml injection (12 sources) Start: 05-10-2024 End: 05-12-2024 Start: 05-10-2024 End: 05-16-2024 take 5-40 mL intraluminal route every eight hours Start: 05-10-2024 End: 05-16-2024 Start: 05-10-2024 End: 05-10-2024 5 ml sugammadex 100 mg/ml injection (2 sources) Start: 05-10-2024 End: 05-10-2024 tamsulosin hydrochloride 0.4 mg oral capsule (12 sources) alpha-Adrenergic Soni End: 11-21-2014 tamsulosin 0.4 mg Cp24 Indications: Type II or unspecified type diabetes mellitus without mention of complication, uncontrolled Take 0.4 mg by mouth. 0 Active Comment on above: Take 0.4 mg by mouth . 24 hr tolterodine tartrate 4 mg extended release oral capsule (20 sources) Cholinergic Muscarinic Antagonist Start: 01-06-2021 End: 01-21-2022 take 1 capsule by mouth once daily Tolterodine 4 mg capsule,extended release 24hr Discontinued 4 mg PO DAILY January 06, 2021 1:00am January 21, 2022 3:24pm triamcinolone acetonide 1 mg/ml topical cream (20 sources) Corticosteroid Start: 12-20-2017 End: 06-06-2024 Triamcinolone Acetonide 0.1 % cream Discontinued 1 NMA TOPICAL DAILY as needed for SKIN December 20, 2017 12:00am June 06, 2024 7:18pm Start: 12-20-2015 TRIAMCINOLONE ACETONIDE 0.025 % CREA as directed TRIAMCINOLONE ACETONIDE [id number] Josias Turk MD End: 05-16-2024 triamcinolone (Kenalog) 0.1 % ointment Apply topically. Active triamcinolone (K enalog) 0.1 % lotion Apply 1 Application topically Daily as needed. Active vardenafil 10 mg disintegrating oral tablet (10 sources) Phosphodiesterase 5 Inhibitor End: 05-15-2013 STAXYN 10 MG TBDP as needed VARDENAFIL HCL [id number] Deni Lu Vibegron (20 sources) Start: 01-21-2022 End: 10-02-2024 take 1 tablet by mouth once daily Vibegron (Gemtesa) 75 mg tablet Discontinued 75 mg PO DAILY January 21, 2022 1:00am October 02, 2024 11:41am bladder Start: 01-21-2022 take 1 tablet by tres th once daily Vibegron (Gemtesa) 75 mg tablet Active 75 mg PO DAILY January 21, 2022 1:00am bladder Start: 01-21-2022 take 1 tablet by tres th once daily Vibegron (Gemtesa) 75 mg tablet Active 75 mg PO DAILY January 21, 2022 1:00am Start: 01-21-2022 take 1 tablet by tres th once daily Vibegron (Gemtesa) 75 mg tablet Active 75 MG PO DAILY January 21, 2022 12:00am Start: 01-21-2022 take 1 tablet by tres th once daily Vibegron (Gemtesa) 75 mg tablet Active 75 MG PO DAILY January 21, 2022 1:00am Vitamin B Complex (B Complex-Vitamin B12) tablet (20 sources) Start: 12-20-2017 End: 12-20-2017 take 1 tablet by mouth once daily Vitamin B Complex (B Complex-Vitamin B12) tablet Discontinued 1 TABLET PO DAILY December 20, 2017 8:44am December 20, 2017 1:44pm Start: 12-20-2017 End: 12-20-2017 Vitamin B Complex (B Complex -Vitamin B12) tablet Discontinued 1 {tbl} PO DAILY December 20, 2017 12:00am December 20, 2017 1:44pm Start: 12-20-2017 End: 12-20-2017 take 1 tablet by mouth once daily Vitamin B Complex (B Complex-Vitamin B12) tablet Discontinued 1 TABLET PO DAILY December 19, 2017 11:00pm December 20, 2017 12:44pm Start: 12-20-2017 End: 12-20-2017 take 1 tablet by mouth once daily Vitamin B Complex (B Complex-Vitamin B12) tablet Discontinued 1 TABLET PO DAILY December 20, 2017 12:00am December 20, 2017 1:44pm vitamin B12 (5 sources) Vitamin B12 Start: 05-15-2013 VITAMIN B-12 1 000 MCG/15ML LIQD injections monthly CYANOCOBALAMIN [id number] Josias Turk MD Start: 05-15-2013 VITAMIN B-12 1 000 MCG/15ML LIQD injections monthly CYANOCOBALAMIN [id number] Josias Turk MD Start: 05-15-2013 VITAMIN B-12 1 000 MCG/15ML LIQD injections monthly CYANOCOBALAMIN [id number] Josias Turk MD (8 sources) Start: 05-10-2024 End: 05-16-2024 [Order 1 Start] Name: magnes ium sulfate IVPB premix 2,000 mg Signed Summary: 2,000 mg, IntraVENous, at 25 mL/hr, Administer over 2 Hours, As needed, Per Magnesium Replacement Protocol, Starting on Wed05/10/24 at 1221, Recovery & On Unit, Mg Lab Replacement Action 1.4-1.6 2 gram IVPB x 1 doses 1.0-1.3 4 gram IVPB x 1 doses Less than 1.0 CALL PHYSICIAN and 4 gram IVPB x 1 doses Infuse at 1 gram/hr. Repeat Mag level next AM. Not for use in Patients with CrCl less than 30 mL/min. [Order 1 End] [Order 2 Start] Name: magnesium sulfate IVPB 4,000 mg Signed Summary: 4,000 mg, IntraVENous, at 25 mL/hr, Administer over 4 Hours, As needed, Per Magnesium Replacement Protocol, Starting on Wed05/10/24 at 1221, Recovery & On Unit, Mg Lab Replacement Action 1.4-1.6 2 gram IVPB x 1 doses 1.0-1.3 4 gram IVPB x 1 doses Less than 1.0 CALL PHYSICIAN and 4 gram IVPB x 1 doses Infuse at 1 gram/hr. Repeat Mag level next AM. Not for use in Patients with CrCl less than 30 mL/min. [Order 2 End] Start: 05-10-2024 End: 05-16-2024 [Order 1 Start] Name: potass ium chloride IVPB 20 mEq Signed Summary: 20 mEq, IntraVENous, at 50 mL/hr, Administer over 1 Hours, 3 times daily PRN, hypokalemia, Starting on Wed05/10/24 at 1221, Recovery & On Unit, For Central Line Use Only K Lab Replacement Action 3.1-3.5 20 mEq IVPB x 2 doses 2.7-3.0 20 mEq IVPB x 2 doses (40 mEq Total) less than 2.7 CALL PROVIDER and administer 20 mEq IVPB x 2 doses (40 mEq Total) Infuse at 20 mEq/hr Repeat Potassium lab 1 hour after final administration. Protocol not for use in Patients with CrCl less than 30mL/min For central line administration only. [Order 1 End] [Order 2 Start] Name: Potassium Chloride in NaCl IVPB 20 mEq Signed Summary: 20 mEq, IntraVENous, Administer over 2 Hours, Every 8 hours PRN, hypokalemia, Starting on Wed05/10/24 at 1221, Recovery & On Unit, For Peripheral Line Use K Lab Replacement Action 3.1-3.5 20 mEq IVPB x 1 doses 2.7-3.0 40 mEq IVPB x 1 doses less than 2.7 CALL PROVIDER and administer 40 mEq IVPB x 1 dose Infuse at 10 mEq/hr Repeat Potassium lab 1 hour after administration. Protocol not for use in Patients with CrCl less than 30mL/min [Order 2 End] [Order 3 Start] Name: potassium chloride 40 mEq in NS 500 mL IVPB (premix) Signed Summary: 40 mEq, IntraVENous, at 125 mL/hr, Administer over 4 Hours, 3 times daily PRN, hypokalemia, Starting on Wed05/10/24 at 1221, Recovery & On Unit, For Peripheral Line Use. K Lab Replacement Action 3.1-3.5 20 mEq IVPB x 1 doses 2.7-3.0 40 mEq IVPB x 1 doses less than 2.7 CALL PROVIDER and administer 40 mEq IVPB x 1 dose Infuse at 10 mEq/hr Repeat Potassium lab 1 hour after administration. Protocol not for use in Patients with CrCl less than 30mL/min [Order 3 End] Start: 05-10-2024 End: 05-16-2024 take 5 mg by mouth every four hours as needed for pain [Order 1 Start] Name: oxyCODONE (Roxicodone) immediate release tablet 5 mg Signed Summary: 5 mg, Oral, Every 4 hours PRN, moderate pain (4-6), Starting on Wed05/10/24 at 1221, Recovery & On Unit [Order 1 End] [Order 2 Start] Name: oxyCODONE (Roxicodone) immediate release tablet 10 mg Signed Summary: 10 mg, Oral, Every 4 hours PRN, severe pain (7-10), Starting on Wed05/10/24 at 1221, Recovery & On Unit [Order 2 End] Start: 05-10-2024 End: 05-16-2024 take 4 mg by mouth every eight hours as needed for nausea and vomiting [Order 1 Start] Name: ondansetron ODT (Zofran-ODT) disintegrating tablet 4 mg Signed Summary: 4 mg, Oral, Every 8 hours PRN, nausea, vomiting, Starting on Wed05/10/24 at 1221, Recovery & On Unit, 1st Line. If inadequate response within 60 minutes, proceed to next-line agent or contact provider if no further options ordered. Patient should allow tablet to dissolve on tongue. Do not remove from blister pack until just before administering. [Order 1 End] [Order 2 Start] Name: ondansetron (Zofran) injection 4 mg Signed Summary: 4 mg, IntraVENous, Every 6 hours PRN, nausea, vomiting, Starting on Wed05/10/24 at 1221, Recovery & On Unit, 1st Line. Give IV if patient is unable to take orally. If inadequate response within 60 minutes, proceed to next-line agent or contact provider if no further options ordered. [Order 2 End] Problems Active Problems Problem Classification Problem Date Documented Date Episodic/Chronic Cancer of prostate (20 sources) Malignant tumor of prostate; Translations: [Malignant neoplasm of prostate] Onset: 02-21-2024 05-16-2024 Chronic Cardiac dysrhythmias (20 sources) Bradycardia; Translations: [Ventricular premature beats] Onset: 11-21-2014 11-21-2014 Chronic Cardiac dysrhythmias (20 sources) Palpitations; Translations: [Bradycardia] Onset: 09-20-2012 09-20-2012 Episodic Coagulation and hemorrhagic disorders (2 sources) Coagulation defect, unspecified; Translations: [Coagulation defect, unspecified (HCC)] Onset: 05-04-2024 Chronic Conditions associated with dizziness or vertigo (5 sources) Vertigo; Translations: [Dizziness and giddiness] Onset: 09-14-2024 09-08-2024 Episodic Coronary atherosclerosis and other heart disease (20 sources) Atherosclerotic heart disease of [place] coronary artery without angina pectoris; Translations: [Coronary atherosclerosis] Onset: 09-20-2012 12-10-2015 Chronic Comment on above: Mild Coronary atherosclerosis and other heart disease (1 source) Coronary atherosclerosis and other heart disease Deficiency and other anemia (19 sources) Anemia; Translations: [Anemia, unspecified] 07-06-2024 Episodic Deficiency and other anemia (1 source) Anemia, unspecified; Translations: [Anemia, unspecified] Onset: 07-06-2024 Episodic Diabetes mellitus with complications (20 sources) Type 2 diabetes mellitus; Translations: [Type II or unspecified type diabetes mellitus without mention of complication, uncontrolled] Onset: 09-14-2007 09-14-2007 Chronic Diabetes mellitus without complication (20 sources) Diabetes mellitus; Translations: [Type 2 diabetes mellitus without complications] Onset: 09-20-2012 09-20-2012 Chronic Disorders of lipid metabolism (20 sources) Hyperlipidemia; Translations: [Hyperlipidemia, unspecified] Onset: 09-20-2012 09-20-2012 Chronic E Codes: Fall (18 sources) Fall; Translations: [Unspecified fall, initial encounter] 12-30-2022 Episodic Essential hypertension (20 sources) Hypertensive disorder; Translations: [Essential (primary) hypertension] Onset: 09-20-2012 09-20-2012 Chronic Immunizations and screening for infectious disease (2 sources) Contact with or exposure to other viral diseases; Translations: [Close exposure to COVID-19 virus] Episodic Intracranial injury (18 sources) Concussion injury of body structure; Translations: [Concussion] 12-30-2022 Episodic Malaise and fatigue (20 sources) Fatigue; Translations: [Other fatigue] Onset: 07-12-2011 Resolved: 12-10-2015 10-06-2012 Episodic Nonspecific chest pain (20 sources) Chest pain; Translations: [Chest pain, unspecified] Onset: 04-24-2024 04-21-2024 Episodic Osteoarthritis (12 sources) Osteoarthritis of right knee joint; Translations: [Unilateral primary osteoarthritis, right knee] 06-14-2023 Chronic Other and ill-defined heart disease (20 sources) Diastolic dysfunction; Translations: [Other ill-defined heart diseases] 03-23-2024 Chronic Other and ill-defined heart disease (2 sources) Other ill-defined heart diseases; Translations: [Other ill-defined heart diseases] Onset: 03-23-2024 Chronic Other circulatory disease (20 sources) Disorder of carotid artery; Translations: [Disorder of arteries and arterioles, unspecified] 01-06-2021 Chronic Other circulatory disease (6 sources) Disorder of arteries and arterioles, unspecified; Translations: [Unspecified disorders of arteries and arterioles] Onset: 03-23-2024 01-21-2022 Chronic Other diseases of bladder and urethra (20 sources) Overactive bladder; Translations: [Overactive bladder] 05-16-2024 Chronic Other endocrine disorders (2 sources) Testicular hypofunction; Translations: [Testicular hypofunction] Onset: 12-29-2023 Chronic Other injuries and conditions due to external causes (18 sources) Closed injury of head; Translations: [Unspecified injury of head, initial encounter] 12-30-2022 Episodic Other nervous system disorders (5 sources) Carpal tunnel syndrome, unspecified upper limb; Translations: [Carpal tunnel syndrome] Onset: 07-18-2013 07-20-2013 Chronic Other nervous system disorders (20 sources) Normal pressure hydrocephalus; Translations: [(Idiopathic) normal pressure hydrocephalus] 12-20-2017 Chronic Other nervous system disorders (12 sources) Neuropathy of lower limb; Translations: [Unspecified mononeuropathy of unspecified lower limb] 06-14-2023 Chronic Other non-traumatic joint disorders (12 sources) Instability of joint of right knee; Translations: [Other instability, right knee] 06-14-2023 Episodic Other nutritional; endocrine; and metabolic disorders (1 [...] Index 37.0-37.9, adult] Onset: 05-15-2013 05-15-2013 Chronic Other nutritional; endocrine; and metabolic disorders (20 sources) Obesity; Translations: [Obesity, unspecified] 12-20-2017 Chronic Other screening for suspected conditions (not mental disorders or infectious disease) (1 source) Abnormal findings on diagnostic imaging of other specified body structures; Translations: [Abnormal findings on diagnostic imaging of other specified body structures] Onset: 04-24-2024 Chronic Other screening for suspected conditions (not mental disorders or infectious disease) (20 sources) Cardiovascular stress test abnormal; Translations: [Abnormal result of other cardiovascular function study] Onset: 04-24-2024 04-21-2024 Episodic Residual codes; unclassified (20 sources) Obstructive sleep apnea syndrome; Translations: [Obstructive sleep apnea (adult) (pediatric)] Onset: 05-04-2024 12-20-2017 Chronic Residual codes; unclassified (15 sources) Bilateral lower limb edema; Translations: [Localized edema] 04-05-2023 Episodic Residual codes; unclassified (4 sources) Localized edema; Translations: [Edema] Onset: 07-12-2024 04-05-2023 Episodic Spondylosis; intervertebral disc disorders; other back problems (5 sources) Displacement of lumbar intervertebral disc without myelopathy; Translations: [Displacement of lumbar intervertebral disc without myelopathy] Onset: 09-27-2013 09-27-2013 Chronic Syncope (20 sources) Syncope; Translations: [Syncope and collapse] Onset: 05-15-2013 05-15-2013 Episodic Thyroid disorders (5 sources) Thyroid nodule; Translations: [Nontoxic single thyroid nodule] Onset: 03-10-2012 03-11-2012 Chronic Unclassified (18 sources) Parkinsonism; Translations: [Parkinsonism] 03-23-2024 Chronic Unclassified (20 sources) Parkinson's disease; Translations: [Parkinson's disease] 05-16-2024 Chronic Unclassified (8 sources) R07.9 - Chest pain, unspecified,R94.39 - Abnormal result of other cardiovascular function study,I25.10 - Atherosclerotic heart disease of [place] coronary artery without angina pectoris Unclassified (11 sources) [address] floor [address] Unclassified (1 source) Abnormal cardiovascular stress test Unclassified (1 source) Parkinsonism, unspecified; Translations: [Parkinsonism, unspecified] Onset: 03-23-2024 Past or Other Problems Problem Classification Problem Date Documented Da te Episodic/Chronic Coronary atherosclerosis and other heart disease (2 sources) Presence of aortocoronary bypass graft; Translations: [Presence of aortocoronary bypass graft] Onset: 05-10-2024 Episodic Diabetes mellitus without complication (2 sources) Hyperglycemia, unspecified; Translations: [Hyperglycemia, unspecified] Onset: 05-04-2024 Episodic Lymphadenitis (5 sources) Cervical lymphadenopathy; Translations: [Localized enlarged lymph nodes] 03-01-2012 Episodic Other aftercare (1 source) Encounter for surgical aftercare following surgery on the circulatory system; Translations: [Encounter for surgical aftercare following surgery on the circulatory system] Onset: 06-15-2024 Episodic Other and unspecified benign neoplasm (10 sources) Hemangioma of skin; Translations: [Hemangioma of skin and subcutaneous tissue] Onset: 05-12-2011 Resolved: 12-10-2015 05-12-2011 Episodic Other and unspecified benign neoplasm (1 source) Benign lipomatous neoplasm of skin and subcutaneous tissue of right arm; Translations: [Benign lipomatous neoplasm of skin and subcutaneous tissue of right arm] Onset: 01-04-2024 Episodic Other connective tissue disease (1 source) Pain in left lower leg; Translations: [Pain in left lower leg] Onset: 06-08-2024 Episodic Other infections; including parasitic (10 sources) Infestation by Sarcoptes scabiei kandice hominis; Translations: [Scabies] Onset: 05-12-2011 Resolved: 12-10-2015 [...] Translations: [Family history of stroke] 11-06-2013 Episodic Residual codes; unclassified (10 sources) History of clinical finding in subject; Translations: [Personal history of other specified conditions] Onset: 05-04-2024 05-04-2024 Episodic Results Test Name Value Interpretation Reference Range Facility Microalb:Creat Ratio,Random URon 09-12-2024 Creatinine [Mass/Vol] 72.60 mg/dL Normal 39.00- 259.0 0 [facility] Comment on above: Performed By: #### L 502.0250 ####[facility] [address] [place], [place], [id number] MALB:CREAT 22.0 mg/g CRE Normal <30 mg/g CRE [facility] Comment on above: Performed By: #### L 502.0250 ####[facility] [address] [place], [place], [id number] MICROALBUMIN,UR 16.0 mg/L Normal <20 mg/L [facility] Comment on above: Performed By: #### L 502.0250 ####[facility] [address] [place], [place], [id number] Random urine creatinine mt urement (mass/volume)Ordered By: Fredis Moon on 09-12-2024 Creatinine Unsp time (U) [Mass/Vol] 72.60 mg/dL 39.00-259.0 0 [facility] Urine albumin measurement wi th detection limit of 20 mg/L or less (mass/volume)Ordered By: Fredis Moon on 09-12-2024 Albumin DL <= 20 mg/L (U) [Mass/Vol] 16.0 mg/L <20 mg/L [facility] Absolute lymphocyte countOrd ered By: Tiara Alston on 09-08-2024 Lymphocytes Auto (Unsp spec) [#/Vol] 0.98 10*3/uL 0.83-4.51 [facility] Absolute neutrophil countOrd ered By: Tiara Alston on 09-08-2024 Neutrophils (Bld) [#/Vol] 3.6 10*3/uL 2.0-7.7 [facility] Anion gap in Serum or Plasma Ordered By: Tiara Alston on 09-08-2024 Anion gap [Moles/Vol] 12 mmol/L 5-15 [facility] Automated lymphocyte count a s percentage of total leukocytesOrdered By: Tiara Alston on 09-08-2024 Lymphocytes/100 WBC Auto (Unsp spec) 17.6 % Low 19-41 [facility] BUN/creatinine ratioOrdered By: Tiara Alston on 09-08-2024 Urea nitrogen/Creatinine [Mass ratio] 24.2 mg/mg High 10-20 [facility] Basic Metabolic Profile (BMP )on 09-08-2024 BUN/CRE 24.2 RATIO High - [facility] Comment on above: Performed By: #### L 500.2500, L100.0100 ####[facility] [address] [place], [address] Calcium [Mass/Vol] 9.6 mg/dL Normal 7.6-11.0 [facility] Comment on above: Performed By: #### L 500.2500, L100.0100 ####[facility] [address] [place], [address] Chloride [Moles/Vol] 103 mmol/L Normal 98-108 [facility] Comment on above: Performed By: #### L 500.2500, L100.0100 ####[facility] [address] [place], [address] CO2 [Moles/Vol] 26.3 mmol/L Normal 21.0-32.0 [facility] Comment on above: Performed By: #### L 500.2500, L100.0100 ####[facility] [address] [place], [address] Creatinine [Mass/Vol] 1.00 mg/dL Normal 0.70-1.20 [facility] Comment on above: Performed By: #### L 500.2500, L100.0100 ####[facility] [address] [place], [address] ECRCL 61.00 ml/min Normal 50-250 [facility] Comment on above: Performed By: #### L 500.2500, L100.0100 ####[facility] [address] [place], [address] GAP 12 Normal 5-15 [facility] Comment on above: Performed By: #### L 500.2500, L100.0100 ####[facility] [address] [place], [address] GFR/1.73 sq M.predicted among non-blacks MDRD (S/P/Bld) [Vol rate/Area] 75 mL/min/{1.73_m2} Normal >60 [facility] Comment on above: Result Comment: mL/m in/1.73m2 CKD-EPI Creatinine Equation (2020) Performed By: #### L 500.2500, L100.0100 ####[facility] [address] [place], [address] Glucose [Mass/Vol] 109 mg/dL High 70-99 [facility] Comment on above: Performed By: #### L 500.2500, L100.0100 ####[facility] [address] [place], [address] Potassium [Moles/Vol] 4.3 mmol/L Normal 3.3-5.1 [facility] Comment on above: Performed By: #### L 500.2500, L100.0100 ####[facility] [address] [place], [address] Sodium [Moles/Vol] 141 mmol/L Normal 133-145 [facility] Comment on above: Performed By: #### L 500.2500, L100.0100 ####[facility] [address] [place], [address] Urea nitrogen [Mass/Vol] 24 mg/dL High 4-19 [facility] Comment on above: Performed By: #### L 500.2500, L100.0100 ####[facility] [address] [place], [address] Basophil percentageOrdered B y: Tiara Alston on 09-08-2024 Basophils/100 WBC (Bld) 1.1 % High 0-1 [facility] Bedside Glucoseon 09-08-2024 FINGERSTICK GLU 142 mg/dL High 74-106 [facility] Comment on above: Result Comment: NIKI ROMERO OF PATIENT CARE PER NURSING PROTOCOL Performed By: #### L 501.080 ####[facility] [address] [place], [address] CBC W/Diff, Automatedon 08-22 Absolute Lymph 0.98 X10 3/uL Normal 0.83-4.51 [facility] Comment on above: Performed By: #### L 500.2500, L100.0100 ####[facility] [address] [place], [address] Absolute Neut 3.6 X10 3/uL Normal 2.0-7.7 [facility] Comment on above: Performed By: #### L 500.2500, L100.0100 ####[facility] [address] [place], [address] Basophils/100 WBC (Bld) 1.1 % High 0-1 [facility] Comment on above: Performed By: #### L 500.2500, L100.0100 ####[facility] [address] [place], [address] Eosinophils/100 WBC (Bld) 1.8 % Normal 0-5 [facility] Comment on above: Performed By: #### L 500.2500, L100.0100 ####[facility] [address] [place], [address] Erythrocyte distribution width (RBC) [Ratio] 14.9 % High 11.6-14.6 [facility] Comment on above: Performed By: #### L 500.2500, L100.0100 ####[facility] [address] [place], [address] Hematocrit (Bld) [Volume fraction] 43.7 % Normal 40-54 [facility] Comment on above: Performed By: #### L 500.2500, L100.0100 ####[facility] [address] [place], [address] Hemoglobin (Bld) [Mass/Vol] 14.1 g/dL Normal 13.0-16.5 [facility] Comment on above: Performed By: #### L 500.2500, L100.0100 ####[facility] [address] [place], [address] IG% 0.700 Normal 0.0-0.9 [facility] Comment on above: Result Comment: IG% - Immature Granulocytes (promyelocytes, myelocytes andmetamyelocytes) > 1% indicates that a LEFT SHIFT is Present. Performed By: #### L 500.2500, L100.0100 ####[facility] [address] [place], [address] Lymphocytes/100 WBC (Bld) 17.6 % Low 19-41 [facility] Comment on above: Performed By: #### L 500.2500, L100.0100 ####[facility] [address] [place], [address] MCH (RBC) [Entitic mass] 26.8 pg Low 27.0-32.0 [facility] Comment on above: Performed By: #### L 500.2500, L100.0100 ####[facility] [address] [place], [address] MCHC (RBC) [Mass/Vol] 32.3 g/dL Normal 32-36 [facility] Comment on above: Performed By: #### L 500.2500, L100.0100 ####[facility] [address] [place], [address] MCV (RBC) [Entitic vol] 83.1 fL Normal 80-94 [facility] Comment on above: Performed By: #### L 500.2500, L100.0100 ####[facility] [address] [place], [address] Monocytes/100 WBC (Bld) 13.8 % High 0-10 [facility] Comment on above: Performed By: #### L 500.2500, L100.0100 ####[facility] [address] [place], [address] Neutrophils/100 WBC (Bld) 65.0 % Normal 47-70 [facility] Comment on above: Performed By: #### L 500.2500, L100.0100 ####[facility] [address] [place], [address] Nucleated RBC (Bld) [#/Vol] 0 10*3/uL Normal 0-5 [facility] Comment on above: Performed By: #### L 500.2500, L100.0100 ####[facility] [address] [place], [address] Platelet mean volume (Bld) [Entitic vol] 9.2 fL Normal 6.2-12.0 [facility] Comment on above: Performed By: #### L 500.2500, L100.0100 ####[facility] [address] [place], [address] Platelets (Bld) [#/Vol] 189 10*3/uL Normal 150-450 [facility] Comment on above: Performed By: #### L 500.2500, L100.0100 ####[facility] [address] [place], [address] RBC (Bld) [#/Vol] 5.26 10*6/uL Normal 4.6-6.2 [facility] Comment on above: Performed By: #### L 500.2500, L100.0100 ####[facility] [address] [place], [address] RDW SD 44.7 fl High 35.1-43.9 [facility] Comment on above: Performed By: #### L 500.2500, L100.0100 ####[facility] [address] [place], [address] WBC (Bld) [#/Vol] 5.6 10*3/uL Normal 4.4-11.0 [facility] Comment on above: Performed By: #### L 500.2500, L100.0100 ####[facility] [address] [place], [address] Carbon dioxide, total [Moles /volume] in Central venous bloodOrdered By: Tiara Alston on 09-08-2024 CO2 [Moles/Vol] 26.3 mmol/L 21.0-32.0 [facility] Chest PA and Lateralon 09-08 Chest PA and Lateral Normal [facility] Chloride assayOrdered By: Jaun Alston on 09-08-2024 Chloride [Moles/Vol] 103 mmol/L 98-108 [facility] Emergency Department Summary on 09-08-2024 Emergency Department Summary Normal [facility] Eosinophil percentageOrdered By: Tiara Alston on 09-08-2024 Eosinophils/100 WBC (Bld) 1.8 % 0-5 [facility] Erythrocyte distribution wid th ratioOrdered By: Tiara Alston on 09-08-2024 Erythrocyte distribution width (RBC) [Ratio] 14.9 % High 11.6-14.6 [facility] Erythrocyte distribution wid th standard deviationOrdered By: Tiara Alston on 09-08-2024 Erythrocyte distribution width (RBC) [Ratio] 44.7 fl High 35.1-43.9 [facility] Glomerular filtration rate ( GFR) estimation/1.73 sq m using serum, plasma, or whole bOrdered By: Tiara Alston on 09-08-2024 GFR/1.73 sq M.predicted among non-blacks MDRD (S/P/Bld) [Vol rate/Area] 75 mL/min/{1.73_m2} >60 [facility] Comment on above: mL/min/1.73m2 CKD-EP I Creatinine Equation (2020) [facility] deOrdered By: Tiara Alston on 09-08-2024 Glucose [Mass/Vol] 142 mg/dL High 74-106 [facility] Comment on above: MANAGEMENT OF PATIEN T CARE PER NURSING PROTOCOL Hematocrit Auto (Bld) [Volum e fraction]Ordered By: Tiara Alston on 09-08-2024 Hematocrit (Bld) [Volume fraction] 43.7 % 40-54 [facility] Hemoglobin measurementOrdere d By: Tiara Alston on 09-08-2024 Hemoglobin (Bld) [Mass/Vol] 14.1 g/dL 13.0-16.5 [facility] Immature granulocytes/100 WB C Auto (Bld)Ordered By: Tiara Alston on 09-08-2024 Immature granulocytes/100 WBC (Bld) 0.700 % 0.0-0.9 [facility] Comment on above: IG% - Immature Granu locytes (promyelocytes, myelocytes and metamyelocytes) > 1% indicates that a LEFT SHIFT is Present. L499.0042on 09-08-2024 Trop T High Sen < 6 Normal <=22 [facility] Comment on above: Performed By: #### L 499.0042 ####[facility] [address] [place], [address] L499.0043on 09-08-2024 Trop T High Sen Normal <=22 [facility] Comment on above: Result Comment: Canc elled via OM: Order cancelled - Patient discharged Performed By: #### L 499.0043 ####[facility] [address] [place], [place], [address] L501.4021on 09-08-2024 Trop T High Sen 6 ng/L Normal <=22 [facility] Comment on above: Performed By: #### L 501.4021 ####[facility] [address] [place], [place], [id number] MCV (mean corpuscular volume ) determinationOrdered By: Tiara Alston on 09-08-2024 MCV (RBC) [Entitic vol] 83.1 fL 80-94 [facility] Mean corpuscular hemoglobin (MCH) determinationOrdered By: Tiara Alston on 09-08-2024 MCH (RBC) [Entitic mass] 26.8 pg Low 27.0-32.0 [facility] Mean corpuscular hemoglobin concentration (MCHC) determinationOrdered By: Tiara Alston on 09-08-2024 MCHC (RBC) [Mass/Vol] 32.3 g/dL 32-36 [facility] Mean platelet volume determi nationOrdered By: Tiara Alston on 09-08-2024 Platelet mean volume (Bld) [Entitic vol] 9.2 fL 6.2-12.0 [facility] Monocyte percentageOrdered B y: Tiara Alston on 09-08-2024 Monocytes/100 WBC (Bld) 13.8 % High 0-10 [facility] Neutrophil percentageOrdered By: Tiara Alston on 09-08-2024 Neutrophils/100 WBC (Bld) 65.0 % 47-70 [facility] Nucleated red blood cell per centageOrdered By: Tiara Alston on 09-08-2024 Nucleated RBC/100 WBC (Bld) [Ratio] 0 % 0-5 [facility] Platelet countOrdered By: Jaun Alston on 09-08-2024 Platelets (Bld) [#/Vol] 189 10*3/uL 150-450 [facility] Potassium measurement (mass/ volume)Ordered By: Tiara Alston on 09-08-2024 Potassium (Unsp spec) [Mass/Vol] 4.3 mmol/L 3.3-5.1 [facility] RBC Auto (Bld) [#/Vol]Ordere d By: Tiara Alston on 09-08-2024 RBC (Bld) [#/Vol] 5.26 10*6/uL 4.6-6.2 [facility] Serum creatinine measurement (mass/volume)Ordered By: Tiara Alston on 09-08-2024 Creatinine [Mass/Vol] 1.00 mg/dL 0.70-1.20 [facility] Serum glucose measurement (m ass/volume)Ordered By: Tiara Alston on 09-08-2024 Glucose [Mass/Vol] 109 mg/dL High 70-99 [facility] Serum or plasma calcium mt urement (mass/volume)Ordered By: Tiara Alston on 09-08-2024 Calcium [Mass/Vol] 9.6 mg/dL 7.6-11.0 [facility] Serum or plasma urea nitroge n measurement (mass/volume)Ordered By: Tiara Alston on 09-08-2024 Urea nitrogen [Mass/Vol] 24 mg/dL High 4-19 [facility] Sodium levelOrdered By: Velia Alston on 09-08-2024 Sodium [Moles/Vol] 141 mmol/L 133-145 [facility] Troponin T.cardiac [Mass/vol ume] in Serum or Plasma by High sensitivity methodOrdered By: Tiara Alston on 09-08-2024 Troponin T.cardiac High sensitivity method [Mass/Vol] < 6 ng/L <22 [facility] Troponin T.cardiac High sensitivity method [Mass/Vol] 6 ng/L <22 [facility] White blood cell (WBC) count Ordered By: Tiara Alston on 09-08-2024 WBC (Bld) [#/Vol] 5.6 10*3/uL 4.4-11.0 [facility] Absolute lymphocyte countOrd ered By: Fredis Moon on 09-07-2024 Lymphocytes Auto (Unsp spec) [#/Vol] 1.28 10*3/uL 0.83-4.51 [facility] Absolute neutrophil countOrd ered By: Fredis Moon on 09-07-2024 Neutrophils (Bld) [#/Vol] 4.3 10*3/uL 2.0-7.7 [facility] Anion gap in Serum or Plasma Ordered By: Fredis Red on 09-07-2024 Anion gap [Moles/Vol] 14 mmol/L 5-15 [facility] Automated lymphocyte count a s percentage of total leukocytesOrdered By: Fredis Red on 09-07-2024 Lymphocytes/100 WBC Auto (Unsp spec) 19.0 % - [facility] BUN/creatinine ratioOrdered By: Fredis Moon on 09-07-2024 Urea nitrogen/Creatinine [Mass ratio] 25.8 mg/mg High 10- [facility] Basophil percentageOrdered B y: Fredis Red on 09-07-2024 Basophils/100 WBC (Bld) 0.7 % 0-1 [facility] Bilirubin, totalOrdered By: Fredis Red on 09-07-2024 Bilirubin [Mass/Vol] 0.27 mg/dL 0.00-1.30 [facility] CBC W/Diff, Automatedon 08-22 Absolute Lymph 1.28 X10 3/uL Normal 0.83-4.51 [facility] Comment on above: Performed By: #### L 506.1001, L501.9985, L100.0100, L500.4050, L500.4100, L501.9520 ####[facility] [address] [place], [address] Absolute Neut 4.3 X10 3/uL Normal 2.0-7.7 [facility] Comment on above: Performed By: #### L 506.1001, L501.9985, L100.0100, L500.4050, L500.4100, L501.9520 ####[facility] [address] [place], [address] Basophils/100 WBC (Bld) 0.7 % Normal 0-1 [facility] Comment on above: Performed By: #### L 506.1001, L501.9985, L100.0100, L500.4050, L500.4100, L501.9520 ####[facility] [address] [place], [address] Eosinophils/100 WBC (Bld) 1.9 % Normal 0-5 [facility] Comment on above: Performed By: #### L 506.1001, L501.9985, L100.0100, L500.4050, L500.4100, L501.9520 ####[facility] [address] [place], [address] Erythrocyte distribution width (RBC) [Ratio] 14.8 % High 11.6-14.6 [facility] Comment on above: Performed By: #### L 506.1001, L501.9985, L100.0100, L500.4050, L500.4100, L501.9520 ####[facility] [address] [place], [address] Hematocrit (Bld) [Volume fraction] 41.1 % Normal 40-54 [facility] Comment on above: Performed By: #### L 506.1001, L501.9985, L100.0100, L500.4050, L500.4100, L501.9520 ####[facility] [address] [place], [address] Hemoglobin (Bld) [Mass/Vol] 13.4 g/dL Normal 13.0-16.5 [facility] Comment on above: Performed By: #### L 506.1001, L501.9985, L100.0100, L500.4050, L500.4100, L501.9520 ####[facility] [address] [place], [address] IG% 0.600 Normal 0.0-0.9 [facility] Comment on above: Result Comment: IG% - Immature Granulocytes (promyelocytes, myelocytes andmetamyelocytes) > 1% indicates that a LEFT SHIFT is Present. Performed By: #### L 506.1001, L501.9985, L100.0100, L500.4050, L500.4100, L501.9520 ####[facility] [address] [place], [address] Lymphocytes/100 WBC (Bld) 19.0 % Normal 19-41 [facility] Comment on above: Performed By: #### L 506.1001, L501.9985, L100.0100, L500.4050, L500.4100, L501.9520 ####[facility] [address] [place], [address] MCH (RBC) [Entitic mass] 27.1 pg Normal 27.0-32.0 [facility] Comment on above: Performed By: #### L 506.1001, L501.9985, L100.0100, L500.4050, L500.4100, L501.9520 ####[facility] [address] [place], [address] MCHC (RBC) [Mass/Vol] 32.6 g/dL Normal 32-36 [facility] Comment on above: Performed By: #### L 506.1001, L501.9985, L100.0100, L500.4050, L500.4100, L501.9520 ####[facility] [address] [place], [address] MCV (RBC) [Entitic vol] 83.0 fL Normal 80-94 [facility] Comment on above: Performed By: #### L 506.1001, L501.9985, L100.0100, L500.4050, L500.4100, L501.9520 ####[facility] [address] [place], [address] Monocytes/100 WBC (Bld) 14.4 % High 0-10 [facility] Comment on above: Performed By: #### L 506.1001, L501.9985, L100.0100, L500.4050, L500.4100, L501.9520 ####[facility] [address] [place], [address] Neutrophils/100 WBC (Bld) 63.4 % Normal 47-70 [facility] Comment on above: Performed By: #### L 506.1001, L501.9985, L100.0100, L500.4050, L500.4100, L501.9520 ####[facility] [address] [place], [address] Nucleated RBC (Bld) [#/Vol] 0 10*3/uL Normal 0-5 [facility] Comment on above: Performed By: #### L 506.1001, L501.9985, L100.0100, L500.4050, L500.4100, L501.9520 ####[facility] [address] [place], [address] Platelet mean volume (Bld) [Entitic vol] 9.2 fL Normal 6.2-12.0 [facility] Comment on above: Performed By: #### L 506.1001, L501.9985, L100.0100, L500.4050, L500.4100, L501.9520 ####[facility] [address] [place], [address] Platelets (Bld) [#/Vol] 190 10*3/uL Normal 150-450 [facility] Comment on above: Performed By: #### L 506.1001, L501.9985, L100.0100, L500.4050, L500.4100, L501.9520 ####[facility] [address] [place], [address] RBC (Bld) [#/Vol] 4.95 10*6/uL Normal 4.6-6.2 [facility] Comment on above: Performed By: #### L 506.1001, L501.9985, L100.0100, L500.4050, L500.4100, L501.9520 ####[facility] [address] [place], [place], [id number] RDW SD 44.4 fl High 35.1-43.9 [facility] Comment on above: Performed By: #### L 506.1001, L501.9985, L100.0100, L500.4050, L500.4100, L501.9520 ####[facility] [address] [place], [place], [address] WBC (Bld) [#/Vol] 6.8 10*3/uL Normal 4.4-11.0 [facility] Comment on above: Performed By: #### L 506.1001, L501.9985, L100.0100, L500.4050, L500.4100, L501.9520 ####[facility] [address] [facility] [place], [place], [id number] Calculated very low density lipoprotein (VLDL) cholesterol measurementOrdered By: Fredis Moon on 09-07-2024 Calculated very low density lipoprotein (VLDL) cholesterol measurement 36 mg/dL 5-40 [facility] Carbon dioxide, total [Moles /volume] in Central venous bloodOrdered By: Fredis Moon on 09-07-2024 CO2 [Moles/Vol] 23.8 mmol/L 21.0-32.0 [facility] Chloride assayOrdered By: Mir Moon on 09-07-2024 Chloride [Moles/Vol] 104 mmol/L 98-108 [facility] Comprehensive Metabolic Prof ilon 09-07-2024 Albumin [Mass/Vol] 4.0 g/dL Normal 3.4-4.8 [facility] Comment on above: Performed By: #### L 506.1001, L501.9985, L100.0100, L500.4050, L500.4100, L501.9520 ####[facility] [address] [place], [address] Albumin/Globulin [Mass ratio] 1.5 {ratio} Normal 0.9-2.4 [facility] Comment on above: Performed By: #### L 506.1001, L501.9985, L100.0100, L500.4050, L500.4100, L501.9520 ####[facility] [address] [place], [address] ALK PHOS 93 U/L Normal 40-129 [facility] Comment on above: Performed By: #### L 506.1001, L501.9985, L100.0100, L500.4050, L500.4100, L501.9520 ####[facility] [address] [place], [address] ALT [Catalytic activity/Vol] U/L Normal <=46 [facility] Comment on above: Performed By: #### L 506.1001, L501.9985, L100.0100, L500.4050, L500.4100, L501.9520 ####[facility] [address] [place], [address] AST [Catalytic activity/Vol] 19 U/L Normal <=37 [facility] Comment on above: Result Comment: Hemo lysis present, Results??could be affected.?? Performed By: #### L 506.1001, L501.9985, L100.0100, L500.4050, L500.4100, L501.9520 ####[facility] [address] [place], [address] Bilirubin [Mass/Vol] 0.27 mg/dL Normal 0.00-1.30 [facility] Comment on above: Performed By: #### L 506.1001, L501.9985, L100.0100, L500.4050, L500.4100, L501.9520 ####[facility] [address] [place], [address] BUN/CRE 25.8 RATIO High 10-20 [facility] Comment on above: Performed By: #### L 506.1001, L501.9985, L100.0100, L500.4050, L500.4100, L501.9520 ####[facility] [address] [place], [address] Calcium [Mass/Vol] 9.3 mg/dL Normal 7.6-11.0 [facility] Comment on above: Performed By: #### L 506.1001, L501.9985, L100.0100, L500.4050, L500.4100, L501.9520 ####[facility] [address] [place], [address] Chloride [Moles/Vol] 104 mmol/L Normal 98-108 [facility] Comment on above: Performed By: #### L 506.1001, L501.9985, L100.0100, L500.4050, L500.4100, L501.9520 ####[facility] [address] [place], [address] CO2 [Moles/Vol] 23.8 mmol/L Normal 21.0-32.0 [facility] Comment on above: Performed By: #### L 506.1001, L501.9985, L100.0100, L500.4050, L500.4100, L501.9520 ####[facility] [address] [place], [address] Creatinine [Mass/Vol] 0.97 mg/dL Normal 0.70-1.20 [facility] Comment on above: Performed By: #### L 506.1001, L501.9985, L100.0100, L500.4050, L500.4100, L501.9520 ####[facility] [address] [place], [address] GAP 14 Normal 5-15 [facility] Comment on above: Performed By: #### L 506.1001, L501.9985, L100.0100, L500.4050, L500.4100, L501.9520 ####[facility] [address] [place], [address] GFR/1.73 sq M.predicted among non-blacks MDRD (S/P/Bld) [Vol rate/Area] 78 mL/min/{1.73_m2} Normal >60 [facility] Comment on above: Result Comment: mL/m in/1.73m2 CKD-EPI Creatinine Equation (2020) Performed By: #### L 506.1001, L501.9985, L100.0100, L500.4050, L500.4100, L501.9520 ####[facility] [address] [place], [address] Globulin (S) [Mass/Vol] 2.7 g/dL Normal 2.2-4.2 [facility] Comment on above: Performed By: #### L 506.1001, L501.9985, L100.0100, L500.4050, L500.4100, L501.9520 ####[facility] [address] [place], [address] Glucose [Mass/Vol] 107 mg/dL High 70-99 [facility] Comment on above: Performed By: #### L 506.1001, L501.9985, L100.0100, L500.4050, L500.4100, L501.9520 ####[facility] [address] [place], [address] Potassium [Moles/Vol] 4.6 mmol/L Normal 3.3-5.1 [facility] Comment on above: Result Comment: Hemo lysis present, Results??could be affected.?? Performed By: #### L 506.1001, L501.9985, L100.0100, L500.4050, L500.4100, L501.9520 ####[facility] [address] [place], [address] Sodium [Moles/Vol] 141 mmol/L Normal 133-145 [facility] Comment on above: Performed By: #### L 506.1001, L501.9985, L100.0100, L500.4050, L500.4100, L501.9520 ####[facility] [address] [place], [address] T PROT 6.7 g/dL Normal 5.9-8.4 [facility] Comment on above: Performed By: #### L 506.1001, L501.9985, L100.0100, L500.4050, L500.4100, L501.9520 ####[facility] [address] [place], [address] Urea nitrogen [Mass/Vol] 25 mg/dL High 4-19 [facility] Comment on above: Performed By: #### L 506.1001, L501.9985, L100.0100, L500.4050, L500.4100, L501.9520 ####[facility] [address] [place], [address] Eosinophil percentageOrdered By: Fredis Moon on 09-07-2024 Eosinophils/100 WBC (Bld) 1.9 % 0-5 [facility] Erythrocyte distribution wid th ratioOrdered By: Fredis Moon on 09-07-2024 Erythrocyte distribution width (RBC) [Ratio] 14.8 % High 11.6-14.6 [facility] Erythrocyte distribution wid th standard deviationOrdered By: Fredis Red on 09-07-2024 Erythrocyte distribution width (RBC) [Ratio] 44.4 fl High 35.1-43.9 [facility] Glomerular filtration rate ( GFR) estimation/1.73 sq m using serum, plasma, or whole bOrdered By: Fredis Moon on 09-07-2024 GFR/1.73 sq M.predicted among non-blacks MDRD (S/P/Bld) [Vol rate/Area] 78 mL/min/{1.73_m2} >60 [facility] Comment on above: mL/min/1.73m2 CKD-EP I Creatinine Equation (2020) Hematocrit Auto (Bld) [Volum e fraction]Ordered By: Fredis Moon on 09-07-2024 Hematocrit (Bld) [Volume fraction] 41.1 % 40-54 [facility] Hemoglobin A1con 09-07-2024 HbA1c (Bld) [Mass fraction] 7.1 % High <=5.6 [facility] Comment on above: Result Comment: Norm al < 5.7 % Prediabetic 5.7 - 6.4 % Diabetic >or= 6.5 % Please note range changes. Performed By: #### L 506.1001, L501.9985, L100.0100, L500.4050, L500.4100, L501.9520 ####[facility] [address] [place], [address] Hemoglobin A1c percentageOrd ered By: Fredis Moon on 09-07-2024 HbA1c (Bld) [Mass fraction] 7.1 % High <5.7 [facility] Comment on above: Normal < 5.7 % Predi abetic 5.7 - 6.4 % Diabetic >or= 6.5 % Please note range changes. Hemoglobin measurementOrdere d By: Fredis Moon on 09-07-2024 Hemoglobin (Bld) [Mass/Vol] 13.4 g/dL 13.0-16.5 [facility] Immature granulocytes/100 WB C Auto (Bld)Ordered By: Fredis Moon on 09-07-2024 Immature granulocytes/100 WBC (Bld) 0.600 % 0.0-0.9 [facility] Comment on above: IG% - Immature Granu locytes (promyelocytes, myelocytes and metamyelocytes) > 1% indicates that a LEFT SHIFT is Present. LDL calc ser/plasOrdered By: Fredis Moon on 09-07-2024 Cholesterol in LDL [Mass/Vol] 37 mg/dL [facility] Comment on above: Xhukrywyyp=897-632 m g/dL & Higher Drss=371 mg/dL or greater Laboratory - Chemistry and C hemistry - challengeOrdered By: Fredis Moon on 09-07-2024 AST [Catalytic activity/Vol] 19 U/L <38 [facility] Comment on above: Hemolysis present, R esults could be affected. Lipid Profileon 09-07-2024 CHOL:HDL 2.71 Normal [facility] Comment on above: Performed By: #### L 506.1001, L501.9985, L100.0100, L500.4050, L500.4100, L501.9520 ####[facility] [address], [address] Cholesterol [Mass/Vol] 115 mg/dL Normal <=200 [facility] Comment on above: Result Comment: Chol esterol level, Desirable <200 mg/dLBorderline high cholesterol 200-239 mg/dLHigh cholesterol >=240 mg/dLRecommendations of the NCEP Adult Treatment Panel for thefollowing risk-cutoff thresholds for the [place] Americanpulation. Performed By: #### L 506.1001, L501.9985, L100.0100, L500.4050, L500.4100, L501.9520 ####[facility] [address] [place], [address] Cholesterol in HDL [Mass/Vol] 42 mg/dL Normal [facility] Comment on above: Result Comment: Rianna onal Cholesterol Education Program (NCEP) guidelines:<40 mg/dL: Low HDL-cholesterol (major risk factor for CHD)>= 60 mg/dL: High HDL-cholesterol (negative risk factor forCHD)HDL-cholesterol is affected by a number of factors, e.g.smoking, exercise, hormones, sex and age. Performed By: #### L 506.1001, L501.9985, L100.0100, L500.4050, L500.4100, L501.9520 ####[facility] [address] [place], [address] Cholesterol in LDL [Mass/Vol] 37 mg/dL Normal [facility] Comment on above: Result Comment: Bord dkoiij=054-758 mg/dL Higher Opwz=339 mg/dL or greater Performed By: #### L 506.1001, L501.9985, L100.0100, L500.4050, L500.4100, L501.9520 ####[facility] [address] [place], [place], [address] Cholesterol in VLDL [Mass/Vol] 36 mg/dL Normal 5-40 [facility] Comment on above: Performed By: #### L 506.1001, L501.9985, L100.0100, L500.4050, L500.4100, L501.9520 ####[facility] [address] [place], [address] Triglyceride [Mass/Vol] 179 mg/dL Normal [facility] Comment on above: Result Comment: The drugs N-Acetylcysteine and Metamizole may falselydepress this assay.Normal range: <150 mg/dLBorderline High: 150-199 mg/dLHigh: 200-499 mg/dLVery High: >500 mg/dL Performed By: #### L 506.1001, L501.9985, L100.0100, L500.4050, L500.4100, L501.9520 ####[facility] [address] [place], [address] MCV (mean corpuscular volume ) determinationOrdered By: Fredis Moon on 09-07-2024 MCV (RBC) [Entitic vol] 83.0 fL 80-94 [facility] Mean corpuscular hemoglobin (MCH) determinationOrdered By: Fredis Moon on 09-07-2024 MCH (RBC) [Entitic mass] 27.1 pg 27.0-32.0 [facility] Mean corpuscular hemoglobin concentration (MCHC) determinationOrdered By: Fredis Moon on 09-07-2024 MCHC (RBC) [Mass/Vol] 32.6 g/dL 32-36 [facility] Mean platelet volume determi nationOrdered By: Fredis Moon on 09-07-2024 Platelet mean volume (Bld) [Entitic vol] 9.2 fL 6.2-12.0 [facility] Monocyte percentageOrdered B y: Fredis Moon on 09-07-2024 Monocytes/100 WBC (Bld) 14.4 % High 0-10 [facility] Neutrophil percentageOrdered By: Fredis Moon on 09-07-2024 Neutrophils/100 WBC (Bld) 63.4 % 47-70 [facility] Nucleated red blood cell per centageOrdered By: Fredis Moon on 09-07-2024 Nucleated RBC/100 WBC (Bld) [Ratio] 0 % 0-5 [facility] Platelet countOrdered By: Mir Moon on 09-07-2024 Platelets (Bld) [#/Vol] 190 10*3/uL 150-450 [facility] Potassium measurement (mass/ volume)Ordered By: Fredis Moon on 09-07-2024 Potassium (Unsp spec) [Mass/Vol] 4.6 mmol/L 3.3-5.1 [facility] Comment on above: Hemolysis present, R esults could be affected. RBC Auto (Bld) [#/Vol]Ordere d By: Fredis Moon on 09-07-2024 RBC (Bld) [#/Vol] 4.95 10*6/uL 4.6-6.2 [facility] Screening total cholesterol/ high density lipoprotein (HDL) cholesterol ratioOrdered By: Fredis Moon on 09-07-2024 Cholesterol.total/Choles terol in HDL [Mass ratio] 2.71 {ratio} [facility] Serum creatinine measurement (mass/volume)Ordered By: Fredis Moon on 09-07-2024 Creatinine [Mass/Vol] 0.97 mg/dL 0.70-1.20 [facility] Serum globulin measurementOr dered By: Fredis Moon 09-07-2024 Globulin (S) [Mass/Vol] 2.7 g/dL 2.2-4.2 [facility] Serum glucose measurement (m ass/volume)Ordered By: Fredis Red 09-07-2024 Glucose [Mass/Vol] 107 mg/dL High 70-99 [facility] Serum or plasma alanine hector otransferase (ALT) measurementOrdered By: Fredis Red 09-07-2024 ALT [Catalytic activity/Vol] U/L <47 [facility] Serum or plasma albumin mt urement (mass/volume)Ordered By: Fredis Red 09-07-2024 Albumin [Mass/Vol] 4.0 g/dL 3.4-4.8 [facility] Serum or plasma albumin/glob ulin mass ratioOrdered By: Fredis Red 09-07-2024 Albumin/Globulin [Mass ratio] 1.5 {ratio} 0.9-2.4 [facility] Serum or plasma alkaline kristyn sphatase measurementOrdered By: Fredis Red 09-07-2024 ALP [Catalytic activity/Vol] 93 U/L 40-129 [facility] Serum or plasma calcium mt urement (mass/volume)Ordered By: Fredis Red 09-07-2024 Calcium [Mass/Vol] 9.3 mg/dL 7.6-11.0 [facility] Serum or plasma cholesterol in HDL measurement (mass/volume)Ordered By: Fredis Red 09-07-2024 Cholesterol in HDL [Mass/Vol] 42 mg/dL >40 [facility] Comment on above: National Cholesterol Education Program (NCEP) guidelines:<40 mg/dL: Low HDL-cholesterol (major risk factor for CHD)>= 60 mg/dL: High HDL-cholesterol (negative risk factor for CHD)HDL-cholesterol is affected by a number of factors, e.g. smoking, exercise, hormones, sex and age. Serum or plasma cholesterol measurement (mass/volume)Ordered By: Fredis Red 09-07-2024 Cholesterol [Mass/Vol] 115 mg/dL <201 [facility] Comment on above: Cholesterol level, D esirable <200 mg/dLBorderline high cholesterol 200-239 mg/dLHigh cholesterol >=240 mg/dLRecommendations of the NCEP Adult Treatment Panel for the following risk-cutoff thresholds for the [place] population. Serum or plasma urea nitroge n measurement (mass/volume)Ordered By: Fredis Moon on 09-07-2024 Urea nitrogen [Mass/Vol] 25 mg/dL High 4-19 [facility] Sodium levelOrdered By: Fredis Moon on 09-07-2024 Sodium [Moles/Vol] 141 mmol/L 133-145 [facility] TSH DL <= 0.005 mIU/L QnOrde red By: Fredis Moon on 09-07-2024 TSH Qn 2.070 uIU/mL 0.300-4.200 [facility] Thyroid Stim Hormone (TSH)on 09-07-2024 TSH 2.070 uIU/mL Normal 0.300-4.200 [facility] Comment on above: Performed By: #### L 506.1001, L501.9985, L100.0100, L500.4050, L500.4100, L501.9520 ####[facility] [address] [place], [place], [address] Total proteinOrdered By: Fredis Moon on 09-07-2024 Protein [Mass/Vol] 6.7 g/dL 5.9-8.4 [facility] Triglycerides measurementOrd ered By: Fredis Moon on 09-07-2024 Triglyceride [Mass/Vol] 179 mg/dL <199 [facility] Comment on above: The drugs N-Acetylcy steine and Metamizole may falsely depress this assay. Normal range: <150 mg/dLBorderline High: 150-199 mg/dLHigh: 200-499 mg/dLVery High: >500 mg/dL Vitamin D,25 Hydroxyon 09-07 Vitamin D 25-OH 39.6 ng/mL Normal 30-100 [facility] Comment on above: Result Comment: Katie min D StatusDeficiency: <20 ng/mL (50nmol/L)Insufficiency: 20-30 ng/mL (50-75 nmol/L)Sufficiency: 30-100 ng/mL (75-250 nmol/L)Toxicity: >100 ng/mL (>250 nmol/L) Performed By: #### L 506.1001, L501.9985, L100.0100, L500.4050, L500.4100, L501.9520 ####[facility] [address] [place], [address] White blood cell (WBC) count Ordered By: Fredis Moon on 09-07-2024 WBC (Bld) [#/Vol] 6.8 10*3/uL 4.4-11.0 [facility] No Panel InformationOrdered By: Abel Raymond on 09-04-2024 [facility] Cardiac Rehab [address] [place] [address] CR - Individual Treatment Plan MR#: [id number] Acct: [id number] Name: Joaquin THRASHER Rep #:[id number] : 1940 84 From: Abel Swanson BS, RVT PCP: Dr. Fredis Moon MD DOS: Exercise - Initial Assessment Physician Prescribed Exercise Modalities: Treadmill, SciFit Stepper and SciFit Lateral [place] Nutrition - Initial Assessment Weight Mgt (Other Care) Height: 5 ft 6 in Weight:: 207 lb BMI: 33.4 Core - Initial Assessment Hypertension Resting Blood Pressure:: 146/60 [place] [employer] Hypertension Guidelines Psychosocial - Initial Assess Target Goals Target Goals Referral to Behavioral Health PS - Interventions: Yes: Attend Stress Management Classes Patient Health Questionnaire PHQ-9 Screening 60-Day Re-eval Assessment: 1. Little interest or pleasure in doing things: Not at all 2. Feeling down, depressed, or hopeless: Not at all 3. Trouble falling or staying asleep, or sleeping too much: Nearly every day 4. Feeling tired or having little energy: More than half the days 5. Poor appetite or overeating: More than half the days 6. Feeling bad about yourself -- or that you are a failure or have let yourself or your family down: More than half the days 7. Trouble concentrating on things, such as reading the newspaper or watching television: More than half the days 8. Moving or speaking so slowly that other people could have noticed. Or the opposite - being so fidgety or restless that you have been moving around a lot more than usual: Several days 9. Thoughts that you would be better off , or of hurting yourself in some way: Not at all How difficult have these problems made it for you to do your work, take care of things at home, or get along with other people?: Somewhat difficult Total Score: 12 Self-Efficacy 6-Item Scale 60-Day Re-eval Assessment: We would like to know how confident you are in doing certain activities. 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 [place] Exercise - 60-day Assessment Visit Date of Eval: 09/01/24 Session #:: 22 Physician Prescribed Exercise Modalities: Treadmill, SciFit Stepper and SciFit Lateral [place] Frequency: 3x/week for 12 weeks [36 sessions] Intensity: 60-80% of age predicted maximum heart rate reserve Duration: 30 - 45 minutes Current METSs:: 6 Target Heart Rate:: 83-116 Maximum Excercise HR:: 124 Resting Blood Pressure: 122/64 Maximum Exercise Blood Pressure: 176/80 EKG Type: NSR-ST w/1DAVB BBB w/rare PAC, rare PVC's. 3vent couplets. 5 beat atrial ta Outcomes & Goals Goals:: Verbalizes understanding of THR, RPE & goal METS by session 6, Documentsin home exercise log/reports 30 min aerobic 5 day/wk by DC, Demonstrates accurate pulse taking by DC and Other additional outcome/goals: see below Intervention & Plan Exercise Program Goals: Instruct on personal THR & RPE, Instruct on MET level & personal MET goal, Show patient to take own pulse /validate performance until accurate, Instruct on home exercise and Other additional plan/int Physical Activity Home Exercise Physical Activity - Home Exercise: Safe Exercise, Warm-up, Self-monitoring, Cool-Down, Home Exercise > 30 min Daily and Sitting Time <3 hours/daily Outcomes & Goals Outcomes/Goals: Demonstrates correct Warm-up/exercise Cool-Down (S3) if = 2.5 METs, Verbalizes symptoms of exercise intolerance by Session 3 (S3), Demonstratesafe equipment use (S3) & follows exercise prescrition (6) and Other: See below Intervention & Plan Plan/Intervention: Instruct warm-up & cool-down if exercising at > 2 METs, Instruct on symptoms of exercise intolerance & actions to take, Instruct & monitor on saf, Assess intial functional capacity & safety risk and Other See below 30-day Reassessments 30 day Reassessments:: Progressing Reassessment Notes & Comments:: Proper warm up and cool down explained to pt. Pt demonstrates understanding in his daily sessions. Exercise - 90-day Assessment Physician Prescribed Exercise Modalities: Treadmill, SciFit Stepper and SciFit Lateral Qc Scientist Exercise - Final/Discharge Physician Prescribed Exercise Modalities: Treadmill, SciFit Stepper and SciFit Lateral Qc Scientist Nutrition - 30-Day Assessment Weight Mgt (Other Care) Height: 5 ft 6 in Weight:: 207 lb BMI: 33.4 Nutrition - 60-Day Assessment Program Goals Nutrition Program Goals Patient has diagnosis of Hyperlipidemia (ICD E78)?: Yes Visit Date of Eval: 09/01/24 Session #:: 22 Cholesterol/Lipids (Other Core Measures) Determine presence & major risk factors that modif (more content not included)... [facility] No Panel InformationOrdered By: Abel Raymond on 08-06-2024 [facility] Cardiac Rehab [address] [place] [address] CR - Individual Treatment Plan MR#: [id number] Acct: [id number] Name: Joaquin THRASHER Rep #:[id number] : 1940 84 From: Abel Swanson BS, RVT PCP: Dr. Fredis Moon MD DOS: Exercise - Initial Assessment Visit Session #:: 12 Physician Prescribed Exercise Modalities: Treadmill, SciFit Stepper, SciFit Pro-II Ergometer and SciFit Lateral [place] Nutrition - Initial Assessment Weight Mgt (Other Care) Height: 5 ft 6 in Weight:: 208 lb BMI: 33.5 Psychosocial - Initial Assess Target Goals Target Goals Referral to Behavioral Health PS - Interventions: Yes: Attend Stress Management Classes Patient Health Questionnaire PHQ-9 Screening 30-Day Re-eval Assessment: 1. Little interest or pleasure in doing things: Not at all 2. Feeling down, depressed, or hopeless: Not at all 3. Trouble falling or staying asleep, or sleeping too much: Nearly every day 4. Feeling tired or having little energy: More than half the days 5. Poor appetite or overeating: More than half the days 6. Feeling bad about yourself -- or that you are a failure or have let yourself or your family down: Several days 7. Trouble concentrating on things, such as reading the newspaper or watching television: More than half the days 8. Moving or speaking so slowly that other people could have noticed. Or the opposite - being so fidgety or restless that you have been moving around a lot more than usual: More than half the days 9. Thoughts that you would be better off , or of hurting yourself in some way: Not at all How difficult have these problems made it for you to do your work, take care of things at home, or get along with other people?: Somewhat difficult Total Score: 12 Self-Efficacy 6-Item Scale 30-Day Re-eval Assessment: We would like to know how confident you are in doing certain activities. Please select your confidence level for: Fatigue Select Number: 5 Physical Discomfort or Pain Select Number: 7 Emotional Distress Select Number: 6 Other Symptoms or Health Problems Select Number: 4 Different Tasks and Activities Select Number: 5 Medication Select Number: 9 Total Score:: 6 Nutrition Survey Nutrition Survey Instructions Scoring Instructions Exercise - 30-day Assessment Visit Date of Eval: 08/03/24 Session #:: 12 Physician Prescribed Exercise Modalities: Treadmill, SciFit Stepper, SciFit Pro-II Ergometer and SciFit Lateral 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 Outcomes & Goals Goals:: Verbalizes understanding of THR, RPE & goal METS by session 6, Documentsin home exercise log/reports 30 min aerobic 5 day/wk by DC, Demonstrates accurate pulse taking by DC and Other additional outcome/goals: see below Intervention & Plan Exercise Program Goals: Instruct on personal THR & RPE, Instruct on MET level & personal MET goal, Show patient to take own pulse /validate performance until accurate, Instruct on home exercise and Other additional plan/int Physical Activity Home Exercise Physical Activity - Home Exercise: Safe Exercise, Warm-up, Self-monitoring, Cool-Down, Home Exercise > 30 min Daily and Sitting Time <3 hours/daily Outcomes & Goals Outcomes/Goals: Demonstrates correct Warm-up/exercise Cool-Down (S3) if = 2.5 METs, Verbalizes symptoms of exercise intolerance by Session 3 (S3), Demonstratesafe equipment use (S3) & follows exercise prescrition (6) and Other: See below Intervention & Plan Plan/Intervention: Instruct warm-up & cool-down if exercising at > 2 METs, Instruct on symptoms of exercise intolerance & actions to take, Instruct & monitor on saf, Assess intial functional capacity & safety risk and Other See below 30-day Reassessments 30 day Reassessments:: Progressing Reassessment Notes & Comments:: RPE explained to pt. Pt demonstrates understanding in his daily sessions. Exercise - 60-day Assessment Physician Prescribed Exercise Modalities: Treadmill, SciFit Stepper, SciFit Pro-II Ergometer and SciFit Lateral Qc Scientist Exercise - 90-day Assessment Physician Prescribed Exercise Modalities: Treadmill, SciFit Stepper, SciFit Pro-II Ergometer and SciFit Lateral [place] Exercise - Final/Discharge Physician Prescribed Exercise Modalities: Treadmill, SciFit Stepper, SciFit Pro-II Ergometer and SciFit Lateral [place] Nutrition - 30-Day Assessment Program Goals Nutrition Program Goals Patient has diagnosis of Hyperlipidemia (ICD E78)?: Yes Visit Date of Eval: 08/03/24 Session #:: 12 Cholesterol/Lipids (Other Core Measures) Determine presence & major risk factors that modify LDL goal: Hypertension or hypertensive medication, Low HDL cholesterol <40 mg/dL*, Family history of prematur (more content not included)... [facility] Progress Noteon 07-31-2024 Progress Note 07/31/24 1443 Physical Activity On average, how many days per week do you engage in moderate to strenuous exercise (like a brisk walk)? 3 days (Cardiac Rehab started 3 weeks ago) On average, how many minutes do you engage in exercise at this level? 30 min Financial Resource Strain How hard is it for you to pay for the very basics like food, housing, medical care, and heating? Not very Housing Stability In the last 12 months, was there a time when you were not able to pay the mortgage or rent on time? N In the past 12 months, how many times have you moved where you were living? 0 At any time in the past 12 months, were you homeless or living in a fpc (including now)? N Transportation Needs In the past 12 months, has lack of transportation kept you from medical appointments or from getting medications? no In the past 12 months, has lack of transportation kept you from meetings, work, or from getting things needed for daily living? No Food Insecurity Within the past 12 months, you worried that your food would run out before you got the money to buy more. Never true Within the past 12 months, the food you bought just didn't last and you didn't have money to get more. Never true Stress Do you feel stress - tense, restless, nervous, or anxious, or unable to sleep at night because your mind is troubled all the time - these days? Only a littl Social Connections In a typical week, how many times do you talk on the phone with family, friends, or neighbors? Three How often do you get together with friends or relatives? More than 3 How often do you attend restoration or anglican services? More than 4 Do you belong to any clubs or organizations such as restoration groups, unions, fraternal or athletic groups, or school groups? Yes How often do you attend meetings of the clubs or organizations you belong to? Never Are you , , , , never , or living with a partner? Intimate Partner Violence Within the last year, have you been afraid of your partner or ex-partner? No Within the last year, have you been humiliated or emotionally abused in other ways by your partner or ex-partner? No Within the last year, have you been kicked, hit, slapped, or otherwise physically hurt by your partner or ex-partner? No Within the last year, have you been raped or forced to have any kind of sexual activity by your partner or ex-partner? No Alcohol Use Q1: How often do you have a drink containing alcohol? Never Q2: How many drinks containing alcohol do you have on a typical day when you are drinking? None Q3: How often do you have six or more drinks on one occasion? Never Utilities In the past 12 months has the electric, gas, oil, or water company threatened to shut off services in your home? No Health Literacy How often do you need to have someone help you when you read instructions, pamphlets, or other written material from your doctor or pharmacy? Never Normal [facility] Progress Noteon 07-24-2024 Progress Note 07/24/24 1421 BPCI Late Drop? Program late drop? No BPCI Outreach Assessment Selection Which outreach assessment are you completing? 60 Day BPCI - 60 Day Outreach Did patient answer phone call? No Do you have any concerns with your medication(s)? No Any complications with post discharge services? No (Patient has been going to Cardiac Rehab ([place]) for 3 weeks now) Any concerns with your DME equipment? No Any questions about your condition you are unsure about that I can help clarify? Yes (Discussed progress made and patient going to Cardiac Rehab. Discussed medications, medical bills- emailed patient HCAP application.) Normal [facility] Absolute lymphocyte countOrd ered By: Mi Hernandez on 07-06-2024 Lymphocytes Auto (Unsp spec) [#/Vol] 1.27 10*3/uL 0.83-4.51 [facility] Absolute neutrophil countOrd ered By: Mi Hernandez on 07-06-2024 Neutrophils (Bld) [#/Vol] 3.9 10*3/uL 2.0-7.7 [facility] Anion gap in Serum or Plasma Ordered By: Samson Elder on 07-06-2024 Anion gap [Moles/Vol] 11 mmol/L 5- [facility] Automated lymphocyte count a s percentage of total leukocytesOrdered By: Mi Hernandez on 07-06-2024 Lymphocytes/100 WBC Auto (Unsp spec) 20.6 % 19-41 [facility] BUN/creatinine ratioOrdered By: Samson Elder on 07-06-2024 Urea nitrogen/Creatinine [Mass ratio] 25.8 mg/mg High 10-20 [facility] Basophil percentageOrdered B y: Mi Hernandez on 07-06-2024 Basophils/100 WBC (Bld) 1.0 % 0-1 [facility] Bilirubin, totalOrdered By: Samson Elder on 07-06-2024 Bilirubin [Mass/Vol] 0.32 mg/dL 0.00-1.30 [facility] CBC W/Diff, Automatedon 05- Absolute Lymph 1.27 X10 3/uL Normal 0.83-4.51 [facility] Comment on above: Performed By: #### L 100.0100 ####[facility] [address] [place], [address] Absolute Neut 3.9 X10 3/uL Normal 2.0-7.7 [facility] Comment on above: Performed By: #### L 100.0100 ####[facility] [address] [place], [address] Basophils/100 WBC (Bld) 1.0 % Normal 0-1 [facility] Comment on above: Performed By: #### L 100.0100 ####[facility] [address] [place], [address] Eosinophils/100 WBC (Bld) 1.8 % Normal 0-5 [facility] Comment on above: Performed By: #### L 100.0100 ####[facility] [address] [place], [address] Erythrocyte distribution width (RBC) [Ratio] 14.4 % Normal 11.6-14.6 [facility] Comment on above: Performed By: #### L 100.0100 ####[facility] [address] [place], [address] Hematocrit (Bld) [Volume fraction] 37.5 % Low 40-54 [facility] Comment on above: Performed By: #### L 100.0100 ####[facility] [address] [place], [address] Hemoglobin (Bld) [Mass/Vol] 12.0 g/dL Low 13.0-16.5 [facility] Comment on above: Performed By: #### L 100.0100 ####[facility] [address] [place], [address] IG% 0.600 Normal 0.0-0.9 [facility] Comment on above: Result Comment: IG% - Immature Granulocytes (promyelocytes, myelocytes andmetamyelocytes) > 1% indicates that a LEFT SHIFT is Present. Performed By: #### L 100.0100 ####[facility] [address] [place], [address] Lymphocytes/100 WBC (Bld) 20.6 % Normal 19-41 [facility] Comment on above: Performed By: #### L 100.0100 ####[facility] [address] [place], [address] MCH (RBC) [Entitic mass] 27.6 pg Normal 27.0-32.0 [facility] Comment on above: Performed By: #### L 100.0100 ####[facility] [address] [place], [address] MCHC (RBC) [Mass/Vol] 32.0 g/dL Normal 32-36 [facility] Comment on above: Performed By: #### L 100.0100 ####[facility] [address] [place], [address] MCV (RBC) [Entitic vol] 86.4 fL Normal 80-94 [facility] Comment on above: Performed By: #### L 100.0100 ####[facility] [address] [place], [address] Monocytes/100 WBC (Bld) 13.3 % High 0-10 [facility] Comment on above: Performed By: #### L 100.0100 ####[facility] [address] [place], [address] Neutrophils/100 WBC (Bld) 62.7 % Normal 47-70 [facility] Comment on above: Performed By: #### L 100.0100 ####[facility] [address] [place], [address] Nucleated RBC (Bld) [#/Vol] 0 10*3/uL Normal 0-5 [facility] Comment on above: Performed By: #### L 100.0100 ####[facility] [address] [place], [address] Platelet mean volume (Bld) [Entitic vol] 9.5 fL Normal 6.2-12.0 [facility] Comment on above: Performed By: #### L 100.0100 ####[facility] [address] [place], [address] Platelets (Bld) [#/Vol] 192 10*3/uL Normal 150-450 [facility] Comment on above: Performed By: #### L 100.0100 ####[facility] [address] [place], [address] RBC (Bld) [#/Vol] 4.34 10*6/uL Low 4.6-6.2 [facility] Comment on above: Performed By: #### L 100.0100 ####[facility] [address] [place], [address] RDW SD 45.3 fl High 35.1-43.9 [facility] Comment on above: Performed By: #### L 100.0100 ####[facility] [address] [place], [address] WBC (Bld) [#/Vol] 6.2 10*3/uL Normal 4.4-11.0 [facility] Comment on above: Performed By: #### L 100.0100 ####[facility] [address] [place], [address] Calculated very low density lipoprotein (VLDL) cholesterol measurementOrdered By: Samson Elder on 07-06-2024 Calculated very low density lipoprotein (VLDL) cholesterol measurement 21 mg/dL 5-40 [facility] Carbon dioxide, total [Moles /volume] in Central venous bloodOrdered By: Samson Elder on 07-06-2024 CO2 [Moles/Vol] 24.2 mmol/L 21.0-32.0 [facility] Cardiology Visit Reporton Cardiology Visit Report Normal [facility] Chloride assayOrdered By: Mamadou Elder on 07-06-2024 Chloride [Moles/Vol] 106 mmol/L 98-108 [facility] Comprehensive Metabolic Prof ilon 07-06-2024 Albumin [Mass/Vol] 3.9 g/dL Normal 3.4-4.8 [facility] Comment on above: Performed By: #### L 500.4100, L500.4050 ####[facility] [address] [place], [address] Albumin/Globulin [Mass ratio] 1.4 {ratio} Normal 0.9-2.4 [facility] Comment on above: Performed By: #### L 500.4100, L500.4050 ####[facility] [address] [place], [address] ALK PHOS 117 U/L Normal 40-129 [facility] Comment on above: Performed By: #### L 500.4100, L500.4050 ####[facility] [address] [place], [address] ALT [Catalytic activity/Vol] U/L Normal <=46 [facility] Comment on above: Performed By: #### L 500.4100, L500.4050 ####[facility] [address] [place], [address] AST [Catalytic activity/Vol] 17 U/L Normal <=37 [facility] Comment on above: Performed By: #### L 500.4100, L500.4050 ####[facility] [address] [place], [address] Bilirubin [Mass/Vol] 0.32 mg/dL Normal 0.00-1.30 [facility] Comment on above: Performed By: #### L 500.4100, L500.4050 ####[facility] [address] [place], [address] BUN/CRE 25.8 RATIO High 10-20 [facility] Comment on above: Performed By: #### L 500.4100, L500.4050 ####[facility] [address] [place], [address] Calcium [Mass/Vol] 9.4 mg/dL Normal 7.6-11.0 [facility] Comment on above: Performed By: #### L 500.4100, L500.4050 ####[facility] [address] [place], [address] Chloride [Moles/Vol] 106 mmol/L Normal 98-108 [facility] Comment on above: Performed By: #### L 500.4100, L500.4050 ####[facility] [address] [place], [address] CO2 [Moles/Vol] 24.2 mmol/L Normal 21.0-32.0 [facility] Comment on above: Performed By: #### L 500.4100, L500.4050 ####[facility] [address] [place], [address] Creatinine [Mass/Vol] 0.98 mg/dL Normal 0.70-1.20 [facility] Comment on above: Performed By: #### L 500.4100, L500.4050 ####[facility] [address] [place], [address] GAP 11 Normal 5-15 [facility] Comment on above: Performed By: #### L 500.4100, L500.4050 ####[facility] [address] [place], [address] GFR/1.73 sq M.predicted among non-blacks MDRD (S/P/Bld) [Vol rate/Area] 77 mL/min/{1.73_m2} Normal >60 [facility] Comment on above: Result Comment: mL/m in/1.73m2 CKD-EPI Creatinine Equation (2020) Performed By: #### L 500.4100, L500.4050 ####[facility] [address] [place], [address] Globulin (S) [Mass/Vol] 2.7 g/dL Normal 2.2-4.2 [facility] Comment on above: Performed By: #### L 500.4100, L500.4050 ####[facility] [address] [place], [address] Glucose [Mass/Vol] 173 mg/dL High 70-99 [facility] Comment on above: Performed By: #### L 500.4100, L500.4050 ####[facility] [address] [place], [address] Potassium [Moles/Vol] 4.3 mmol/L Normal 3.3-5.1 [facility] Comment on above: Performed By: #### L 500.4100, L500.4050 ####[facility] [address] [place], [address] Sodium [Moles/Vol] 141 mmol/L Normal 133-145 [facility] Comment on above: Performed By: #### L 500.4100, L500.4050 ####[facility] [address] [place], [address] T PROT 6.6 g/dL Normal 5.9-8.4 [facility] Comment on above: Performed By: #### L 500.4100, L500.4050 ####[facility] [address] [place], [place], [address] Urea nitrogen [Mass/Vol] 25 mg/dL High 4-19 [facility] Comment on above: Performed By: #### L 500.4100, L500.4050 ####[facility] [address] [place], [place], [id number] Eosinophil percentageOrdered By: Mi Hernandez on 07-06-2024 Eosinophils/100 WBC (Bld) 1.8 % 0-5 [facility] Erythrocyte distribution wid th ratioOrdered By: Mi Hernandez on 07-06-2024 Erythrocyte distribution width (RBC) [Ratio] 14.4 % 11.6-14.6 [facility] Erythrocyte distribution wid th standard deviationOrdered By: Mi Hernandez on 07-06-2024 Erythrocyte distribution width (RBC) [Ratio] 45.3 fl High 35.1-43.9 [facility] Glomerular filtration rate ( GFR) estimation/1.73 sq m using serum, plasma, or whole bOrdered By: Samson Elder on 07-06-2024 GFR/1.73 sq M.predicted among non-blacks MDRD (S/P/Bld) [Vol rate/Area] 77 mL/min/{1.73_m2} >60 [facility] Comment on above: mL/min/1.73m2 CKD-EP I Creatinine Equation (2020) Hematocrit Auto (Bld) [Volum e fraction]Ordered By: Mi Hernandez on 07-06-2024 Hematocrit (Bld) [Volume fraction] 37.5 % Low 40-54 [facility] Hemoglobin measurementOrdere d By: Mi Hernandez on 07-06-2024 Hemoglobin (Bld) [Mass/Vol] 12.0 g/dL Low 13.0-16.5 [facility] Immature granulocytes/100 WB C Auto (Bld)Ordered By: Mi Hernandez on 07-06-2024 Immature granulocytes/100 WBC (Bld) 0.600 % 0.0-0.9 [facility] Comment on above: IG% - Immature Granu locytes (promyelocytes, myelocytes and metamyelocytes) > 1% indicates that a LEFT SHIFT is Present. LDL calc ser/plasOrdered By: Samson Elder on 07-06-2024 Cholesterol in LDL [Mass/Vol] 46 mg/dL [facility] Comment on above: Uslwqrdpvh=480-744 m g/dL & Higher Mhhu=314 mg/dL or greater Laboratory - Chemistry and C hemistry - challengeOrdered By: Samson Elder on 07-06-2024 AST [Catalytic activity/Vol] 17 U/L <38 [facility] Lipid Profileon 07-06-2024 CHOL:HDL 2.73 Normal [facility] Comment on above: Performed By: #### L 500.4100, L500.4050 ####[facility] [address] [place], [address] Cholesterol [Mass/Vol] 106 mg/dL Normal <=200 [facility] Comment on above: Result Comment: Chol esterol level, Desirable <200 mg/dLBorderline high cholesterol 200-239 mg/dLHigh cholesterol >=240 mg/dLRecommendations of the NCEP Adult Treatment Panel for thefollowing risk-cutoff thresholds for the [place] [facility] [place]. Performed By: #### L 500.4100, L500.4050 ####[facility] [address] [place], [address] Cholesterol in HDL [Mass/Vol] 39 mg/dL Low [facility] Comment on above: Result Comment: Rianna onal Cholesterol Education Program (NCEP) guidelines:<40 mg/dL: Low HDL-cholesterol (major risk factor for CHD)>= 60 mg/dL: High HDL-cholesterol (negative risk factor forCHD)HDL-cholesterol is affected by a number of factors, e.g.smoking, exercise, hormones, sex and age. Performed By: #### L 500.4100, L500.4050 ####[facility] [address] [place], [address] Cholesterol in LDL [Mass/Vol] 46 mg/dL Normal [facility] Comment on above: Result Comment: Bord rdhvsn=268-550 mg/dL Higher Ntgq=367 mg/dL or greater Performed By: #### L 500.4100, L500.4050 ####[facility] [address] [place], [address] Cholesterol in VLDL [Mass/Vol] 21 mg/dL Normal 5-40 [facility] Comment on above: Performed By: #### L 500.4100, L500.4050 ####[facility] [address] [place], [address] Triglyceride [Mass/Vol] 107 mg/dL Normal [facility] Comment on above: Result Comment: The drugs N-Acetylcysteine and Metamizole may falselydepress this assay.Normal range: <150 mg/dLBorderline High: 150-199 mg/dLHigh: 200-499 mg/dLVery High: >500 mg/dL Performed By: #### L 500.4100, L500.4050 ####[facility] [address], [address] MCV (mean corpuscular volume ) determinationOrdered By: Mi Hernandez on 07-06-2024 MCV (RBC) [Entitic vol] 86.4 fL 80-94 [facility] Mean corpuscular hemoglobin (MCH) determinationOrdered By: Mi Hernandez on 07-06-2024 MCH (RBC) [Entitic mass] 27.6 pg 27.0-32.0 [facility] Mean corpuscular hemoglobin concentration (MCHC) determinationOrdered By: Mi Hernandez on 07-06-2024 MCHC (RBC) [Mass/Vol] 32.0 g/dL 32-36 [facility] Mean platelet volume determi nationOrdered By: Mi Hernandez on 07-06-2024 Platelet mean volume (Bld) [Entitic vol] 9.5 fL 6.2-12.0 [facility] Monocyte percentageOrdered B y: Mi Hernandez on 07-06-2024 Monocytes/100 WBC (Bld) 13.3 % High 0-10 [facility] Neutrophil percentageOrdered By: Mi Hernandez on 07-06-2024 Neutrophils/100 WBC (Bld) 62.7 % 47-70 [facility] Nucleated red blood cell per centageOrdered By: Mi Hernandez on 07-06-2024 Nucleated RBC/100 WBC (Bld) [Ratio] 0 % 0-5 [facility] Platelet countOrdered By: Jersey Hernandez on 07-06-2024 Platelets (Bld) [#/Vol] 192 10*3/uL 150-450 [facility] Potassium measurement (mass/ volume)Ordered By: Samson Elder on 07-06-2024 Potassium (Unsp spec) [Mass/Vol] 4.3 mmol/L 3.3-5.1 [facility] RBC Auto (Bld) [#/Vol]Ordere d By: Mi Hernandze on 07-06-2024 RBC (Bld) [#/Vol] 4.34 10*6/uL Low 4.6-6.2 [facility] total cholesterol/ high density lipoprotein (HDL) cholesterol ratioOrdered By: Samson Elder on 07-06-2024 Cholesterol.total/Choles terol in HDL [Mass ratio] 2.73 {ratio} [facility] Serum creatinine measurement (mass/volume)Ordered By: Samson Elder on 07-06-2024 Creatinine [Mass/Vol] 0.98 mg/dL 0.70-1.20 [facility] Serum globulin measurementOr dered By: Samson Elder on 07-06-2024 Globulin (S) [Mass/Vol] 2.7 g/dL 2.2-4.2 [facility] Serum glucose measurement (m ass/volume)Ordered By: Samson Elder on 07-06-2024 Glucose [Mass/Vol] 173 mg/dL High 70-99 [facility] Serum or plasma alanine hector otransferase (ALT) measurementOrdered By: Samson Elder on 07-06-2024 ALT [Catalytic activity/Vol] U/L <47 [facility] Serum or plasma albumin mt urement (mass/volume)Ordered By: Samson Elder on 07-06-2024 Albumin [Mass/Vol] 3.9 g/dL 3.4-4.8 [facility] Serum or plasma albumin/glob ulin mass ratioOrdered By: Samson Elder on 07-06-2024 Albumin/Globulin [Mass ratio] 1.4 {ratio} 0.9-2.4 [facility] Serum or plasma alkaline kristyn sphatase measurementOrdered By: Samson Elder on 07-06-2024 ALP [Catalytic activity/Vol] 117 U/L 40-129 [facility] Serum or plasma calcium mt urement (mass/volume)Ordered By: Samson Elder on 07-06-2024 Calcium [Mass/Vol] 9.4 mg/dL 7.6-11.0 [facility] Serum or plasma cholesterol in HDL measurement (mass/volume)Ordered By: Samson Elder on 07-06-2024 Cholesterol in HDL [Mass/Vol] 39 mg/dL Low >40 [facility] Comment on above: National Cholesterol Education Program (NCEP) guidelines:<40 mg/dL: Low HDL-cholesterol (major risk factor for CHD)>= 60 mg/dL: High HDL-cholesterol (negative risk factor for CHD)HDL-cholesterol is affected by a number of factors, e.g. smoking, exercise, hormones, sex and age. Serum or plasma cholesterol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 Profile (BMP )on 06-20-2024 BUN Normal 4-19 [facility] Comment on above: Result Comment: Canc elled via OM: Order Changed Performed By: #### L 100.0100, L500.2500 ####[facility] [address] [place], [address] BUN/CRE Normal 10-20 [facility] Comment on above: Result Comment: Canc elled via OM: Order Changed Performed By: #### L 100.0100, L500.2500 ####[facility] [address] [place], [address] Calcium Normal 7.6-11.0 [facility] Comment on above: Result Comment: Canc elled via OM: Order Changed Performed By: #### L 100.0100, L500.2500 ####[facility] [address] [place], [address] CL Normal 98-108 [facility] Comment on above: Result Comment: Canc elled via OM: Order Changed Performed By: #### L 100.0100, L500.2500 ####[facility] [address] [place], [address] CO2 Normal 21.0-32.0 [facility] Comment on above: Result Comment: Canc elled via OM: Order Changed Performed By: #### L 100.0100, L500.2500 ####[facility] [address] [place], [address] CREAT,SERUM Normal 0.70-1.20 [facility] Comment on above: Result Comment: Canc elled via OM: Order Changed Performed By: #### L 100.0100, L500.2500 ####[facility] [address] [place], [address] eGFR Normal >60 [facility] Comment on above: Result Comment: Canc elled via OM: Order Changed Performed By: #### L 100.0100, L500.2500 ####[facility] [address] [place], [address] GAP Normal 5-15 [facility] Comment on above: Result Comment: Canc elled via OM: Order Changed Performed By: #### L 100.0100, L500.2500 ####[facility] [address] [place], [address] GLU Normal 70-99 [facility] Comment on above: Result Comment: Canc elled via OM: Order Changed Performed By: #### L 100.0100, L500.2500 ####[facility] [address] [place], [address] Potassium Normal 3.3-5.1 [facility] Comment on above: Result Comment: Canc elled via OM: Order Changed Performed By: #### L 100.0100, L500.2500 ####[facility] [address] [place], [address] Basic Metabolic Profile (BMP) Normal 133-145 [facility] Comment on above: Result Comment: Canc elled via OM: Order Changed Performed By: #### L 100.0100, L500.2500 ####[facility] [address] [place], [address] CBC W/Diff, Automatedon 04-2 Absolute Neut Normal 2.0-7.7 [facility] Comment on above: Result Comment: Canc elled via OM: Order Changed Performed By: #### L 100.0100, L500.2500 ####[facility] [address] [place], [address] HCT Normal 40-54 [facility] Comment on above: Result Comment: Canc elled via OM: Order Changed Performed By: #### L 100.0100, L500.2500 ####[facility] [address] [place], [address] HGB Normal 13.0-16.5 [facility] Comment on above: Result Comment: Canc elled via OM: Order Changed Performed By: #### L 100.0100, L500.2500 ####[facility] [address] [place], [address] MCH Normal 27.0-32.0 [facility] Comment on above: Result Comment: Canc elled via OM: Order Changed Performed By: #### L 100.0100, L500.2500 ####[facility] [address] [place], [address] MCHC Normal 32-36 [facility] Comment on above: Result Comment: Canc elled via OM: Order Changed Performed By: #### L 100.0100, L500.2500 ####[facility] [address] [place], [address] MCV Normal 80-94 [facility] Comment on above: Result Comment: Canc elled via OM: Order Changed Performed By: #### L 100.0100, L500.2500 ####[facility] [address] [place], [address] NEUT% Normal 47-70 [facility] Comment on above: Result Comment: Canc elled via OM: Order Changed Performed By: #### L 100.0100, L500.2500 ####[facility] [address] [place], [address] PLT Normal 150-450 [facility] Comment on above: Result Comment: Canc elled via OM: Order Changed Performed By: #### L 100.0100, L500.2500 ####[facility] [address] [place], [address] RBC Normal 4.6-6.2 [facility] Comment on above: Result Comment: Canc elled via OM: Order Changed Performed By: #### L 100.0100, L500.2500 ####[facility] [address] [place], [address] RDW CV Normal 11.6-14.6 [facility] Comment on above: Result Comment: Canc elled via OM: Order Changed Performed By: #### L 100.0100, L500.2500 ####[facility] [address] [place], [address] RDW SD Normal 35.1-43.9 [facility] Comment on above: Result Comment: Canc elled via OM: Order Changed Performed By: #### L 100.0100, L500.2500 ####[facility] [address] [place], [address] WBC Normal 4.4-11.0 [facility] Comment on above: Result Comment: Canc elled via OM: Order Changed Performed By: #### L 100.0100, L500.2500 ####[facility] [address] [place], [address] Absolute lymphocyte countOrd ered By: Fredis Moon on 06-14-2024 Lymphocytes Auto (Unsp spec) [#/Vol] 1.16 10*3/uL 0.83-4.51 [facility] Absolute neutrophil countOrd ered By: Fredis Moon on 06-14-2024 Neutrophils (Bld) [#/Vol] 3.5 10*3/uL 2.0-7.7 [facility] Anion gap in Serum or Plasma Ordered By: Fredis Moon on 06-14-2024 Anion gap [Moles/Vol] 10 mmol/L 07-06 [facility] Automated lymphocyte count a s percentage of total leukocytesOrdered By: Fredis Moon on 06-14-2024 Lymphocytes/100 WBC Auto (Unsp spec) 20.5 % [facility] BUN/creatinine ratioOrdered By: Fredis Moon on 06-14-2024 Urea nitrogen/Creatinine [Mass ratio] 19.7 mg/mg 12-11 [facility] Basic Metabolic Profile (BMP )on 06-14-2024 BUN/CRE 19.7 RATIO Normal 12-11 [facility] Comment on above: Performed By: #### L 500.2500, L100.0100 ####[facility] [address] [place], [address] Calcium [Mass/Vol] 8.9 mg/dL Normal 7.6-11.0 [facility] Comment on above: Performed By: #### L 500.2500, L100.0100 ####[facility] [address] [place], [address] Chloride [Moles/Vol] 104 mmol/L Normal 98-108 [facility] Comment on above: Performed By: #### L 500.2500, L100.0100 ####[facility] [address] [place], [address] CO2 [Moles/Vol] 24.5 mmol/L Normal 21.0-32.0 [facility] Comment on above: Performed By: #### L 500.2500, L100.0100 ####[facility] [address] [place], [address] Creatinine [Mass/Vol] 0.91 mg/dL Normal 0.70-1.20 [facility] Comment on above: Performed By: #### L 500.2500, L100.0100 ####[facility] [address] [place], [address] ECRCL 66.65 ml/min Normal 50-250 [facility] Comment on above: Performed By: #### L 500.2500, L100.0100 ####[facility] [address] [place], [address] GAP 10 Normal 5-15 [facility] Comment on above: Performed By: #### L 500.2500, L100.0100 ####[facility] [address] [place], [address] GFR/1.73 sq M.predicted among non-blacks MDRD (S/P/Bld) [Vol rate/Area] 84 mL/min/{1.73_m2} Normal >60 [facility] Comment on above: Result Comment: mL/m in/1.73m2 CKD-EPI Creatinine Equation (2020) Performed By: #### L 500.2500, L100.0100 ####[facility] [address] [place], [address] Glucose [Mass/Vol] 171 mg/dL High 70-99 [facility] Comment on above: Performed By: #### L 500.2500, L100.0100 ####[facility] [address] [place], [address] Potassium [Moles/Vol] 4.4 mmol/L Normal 3.3-5.1 [facility] Comment on above: Performed By: #### L 500.2500, L100.0100 ####[facility] [address] [place], [address] Sodium [Moles/Vol] 139 mmol/L Normal 133-145 [facility] Comment on above: Performed By: #### L 500.2500, L100.0100 ####[facility] [address] [place], [address] Urea nitrogen [Mass/Vol] 18 mg/dL Normal 4-19 [facility] Comment on above: Performed By: #### L 500.2500, L100.0100 ####[facility] [address] [place], [address] Basophil percentageOrdered B y: Fredis Moon on 06-14-2024 Basophils/100 WBC (Bld) 0.9 % 0-1 [facility] Bedside Glucoseon 06-14-2024 FINGERSTICK GLU 171 mg/dL High 74-106 [facility] Comment on above: Result Comment: NIKI ROMERO OF PATIENT CARE PER NURSING PROTOCOL Performed By: #### L 501.080 ####[facility] [address] [place], [address] CBC W/Diff, Automatedon 05-24 Absolute Lymph 1.16 X10 3/uL Normal 0.83-4.51 [facility] Comment on above: Performed By: #### L 500.2500, L100.0100 ####[facility] [address] [place], [address] Absolute Neut 3.5 X10 3/uL Normal 2.0-7.7 [facility] Comment on above: Performed By: #### L 500.2500, L100.0100 ####[facility] [address] [place], [address] Basophils/100 WBC (Bld) 0.9 % Normal 0-1 [facility] Comment on above: Performed By: #### L 500.2500, L100.0100 ####[facility] [address] [place], [address] Eosinophils/100 WBC (Bld) 2.8 % Normal 0-5 [facility] Comment on above: Performed By: #### L 500.2500, L100.0100 ####[facility] [address] [place], [address] Erythrocyte distribution width (RBC) [Ratio] 14.4 % Normal 11.6-14.6 [facility] Comment on above: Performed By: #### L 500.2500, L100.0100 ####[facility] [address] [place], [address] Hematocrit (Bld) [Volume fraction] 33.5 % Low 40-54 [facility] Comment on above: Performed By: #### L 500.2500, L100.0100 ####[facility] [address] [place], [address] Hemoglobin (Bld) [Mass/Vol] 10.9 g/dL Low 13.0-16.5 [facility] Comment on above: Performed By: #### L 500.2500, L100.0100 ####[facility] [address] [place], [address] IG% 0.700 Normal 0.0-0.9 [facility] Comment on above: Result Comment: IG% - Immature Granulocytes (promyelocytes, myelocytes andmetamyelocytes) > 1% indicates that a LEFT SHIFT is Present. Performed By: #### L 500.2500, L100.0100 ####[facility] [address] [place], [address] Lymphocytes/100 WBC (Bld) 20.5 % Normal 19-41 [facility] Comment on above: Performed By: #### L 500.2500, L100.0100 ####[facility] [address] [place], [address] MCH (RBC) [Entitic mass] 28.5 pg Normal 27.0-32.0 [facility] Comment on above: Performed By: #### L 500.2500, L100.0100 ####[facility] [address] [place], [address] MCHC (RBC) [Mass/Vol] 32.5 g/dL Normal 32-36 [facility] Comment on above: Performed By: #### L 500.2500, L100.0100 ####[facility] [address] [place], [address] MCV (RBC) [Entitic vol] 87.5 fL Normal 80-94 [facility] Comment on above: Performed By: #### L 500.2500, L100.0100 ####[facility] [address] [place], [address] Monocytes/100 WBC (Bld) 14.1 % High 0-10 [facility] Comment on above: Performed By: #### L 500.2500, L100.0100 ####[facility] [address] [place], [address] Neutrophils/100 WBC (Bld) 61.0 % Normal 47-70 [facility] Comment on above: Performed By: #### L 500.2500, L100.0100 ####[facility] [address] [place], [address] Nucleated RBC (Bld) [#/Vol] 0 10*3/uL Normal 0-5 [facility] Comment on above: Performed By: #### L 500.2500, L100.0100 ####[facility] [address] [place], [address] Platelet mean volume (Bld) [Entitic vol] 10.0 fL Normal 6.2-12.0 [facility] Comment on above: Performed By: #### L 500.2500, L100.0100 ####[facility] [address] [place], [address] Platelets (Bld) [#/Vol] 166 10*3/uL Normal 150-450 [facility] Comment on above: Performed By: #### L 500.2500, L100.0100 ####[facility] [address] [place], [address] RBC (Bld) [#/Vol] 3.83 10*6/uL Low 4.6-6.2 [facility] Comment on above: Performed By: #### L 500.2500, L100.0100 ####[facility] [address] [place], [address] RDW SD 46.1 fl High 35.1-43.9 [facility] Comment on above: Performed By: #### L 500.2500, L100.0100 ####[facility] [address] [place], [address] WBC (Bld) [#/Vol] 5.7 10*3/uL Normal 4.4-11.0 [facility] Comment on above: Performed By: #### L 500.2500, L100.0100 ####[facility] [address] [place], [address] Carbon dioxide, total [Moles /volume] in Central venous bloodOrdered By: Fredis Moon 06-14-2024 CO2 [Moles/Vol] 24.5 mmol/L 21.0-32.0 [facility] Chloride assayOrdered By: Mir Moon on 06-14-2024 Chloride [Moles/Vol] 104 mmol/L 98-108 [facility] Eosinophil percentageOrdered By: Fredis Moon 06-14-2024 Eosinophils/100 WBC (Bld) 2.8 % 0-5 [facility] Erythrocyte distribution wid th ratioOrdered By: Fredis Moon 06-14-2024 Erythrocyte distribution width (RBC) [Ratio] 14.4 % 11.6-14.6 [facility] Erythrocyte distribution wid th standard deviationOrdered By: Fredis Moon on 06-14-2024 Erythrocyte distribution width (RBC) [Ratio] 46.1 fl High 35.1-43.9 [facility] Glomerular filtration rate ( GFR) estimation/1.73 sq m using serum, plasma, or whole bOrdered By: Fredis Moon on 06-14-2024 GFR/1.73 sq M.predicted among non-blacks MDRD (S/P/Bld) [Vol rate/Area] 84 mL/min/{1.73_m2} >60 [facility] Comment on above: mL/min/1.73m2 CKD-EP I Creatinine Equation (2020) Glucose measurement at bedsi deOrdered By: Fredis Moon on 06-14-2024 Glucose [Mass/Vol] 171 mg/dL High 74-106 [facility] Comment on above: MANAGEMENT OF PATIEN T CARE PER NURSING PROTOCOL Hematocrit Auto (Bld) [Volum e fraction]Ordered By: Fredis Moon on 06-14-2024 Hematocrit (Bld) [Volume fraction] 33.5 % Low 40-54 [facility] Hemoglobin measurementOrdere d By: Fredis Moon 06-14-2024 Hemoglobin (Bld) [Mass/Vol] 10.9 g/dL Low 13.0-16.5 [facility] Immature granulocytes/100 WB C Auto (Bld)Ordered By: Fredis Moon 06-14-2024 Immature granulocytes/100 WBC (Bld) 0.700 % 0.0-0.9 [facility] Comment on above: IG% - Immature Granu locytes (promyelocytes, myelocytes and metamyelocytes) > 1% indicates that a LEFT SHIFT is Present. MCV (mean corpuscular volume ) determinationOrdered By: Fredis Moon 06-14-2024 MCV (RBC) [Entitic vol] 87.5 fL 80-94 [facility] Mean corpuscular hemoglobin (MCH) determinationOrdered By: Fredis Moon 06-14-2024 MCH (RBC) [Entitic mass] 28.5 pg 27.0-32.0 [facility] Mean corpuscular hemoglobin concentration (MCHC) determinationOrdered By: Fredis Moon 06-14-2024 MCHC (RBC) [Mass/Vol] 32.5 g/dL 32-36 [facility] Mean platelet volume determi nationOrdered By: Fredis Moon 06-14-2024 Platelet mean volume (Bld) [Entitic vol] 10.0 fL 6.2-12.0 [facility] Monocyte percentageOrdered B y: Fredis Moon on 06-14-2024 Monocytes/100 WBC (Bld) 14.1 % High 0-10 [facility] Neutrophil percentageOrdered By: Fredis Moon on 06-14-2024 Neutrophils/100 WBC (Bld) 61.0 % 47-70 [facility] Nucleated red blood cell per centageOrdered By: Fredis Moon on 06-14-2024 Nucleated RBC/100 WBC (Bld) [Ratio] 0 % 0-5 [facility] Platelet countOrdered By: Mir Moon on 06-14-2024 Platelets (Bld) [#/Vol] 166 10*3/uL 150-450 [facility] Potassium measurement (mass/ volume)Ordered By: Fredis Moon on 06-14-2024 Potassium (Unsp spec) [Mass/Vol] 4.4 mmol/L 3.3-5.1 [facility] RBC Auto (Bld) [#/Vol]Ordere d By: Fredis Moon on 06-14-2024 RBC (Bld) [#/Vol] 3.83 10*6/uL Low 4.6-6.2 [facility] Serum creatinine measurement (mass/volume)Ordered By: Fredis Moon 06-14-2024 Creatinine [Mass/Vol] 0.91 mg/dL 0.70-1.20 [facility] Serum glucose measurement (m ass/volume)Ordered By: Fredis Moon on 06-14-2024 Glucose [Mass/Vol] 171 mg/dL High 70-99 [facility] Serum or plasma calcium mt urement (mass/volume)Ordered By: Fredis Moon 06-14-2024 Calcium [Mass/Vol] 8.9 mg/dL 7.6-11.0 [facility] Serum or plasma urea nitroge n measurement (mass/volume)Ordered By: Fredis Moon 06-14-2024 Urea nitrogen [Mass/Vol] 18 mg/dL 4-19 [facility] Sodium levelOrdered By: Fredis Moon on 06-14-2024 Sodium [Moles/Vol] 139 mmol/L 133-145 [facility] White blood cell (WBC) count Ordered By: Fredis Moon on 06-14-2024 WBC (Bld) [#/Vol] 5.7 10*3/uL 4.4-11.0 [facility] Basic Metabolic Profile (BMP )on 06-13-2024 BUN Normal 4-19 [facility] Comment on above: Result Comment: Canc elled via OM: Order Changed Performed By: #### L 500.2500, L100.0100 ####[facility] [address] [place], [address] BUN/CRE Normal 10-20 [facility] Comment on above: Result Comment: Canc elled via OM: Order Changed Performed By: #### L 500.2500, L100.0100 ####[facility] [address] [place], [address] Calcium Normal 7.6-11.0 [facility] Comment on above: Result Comment: Canc elled via OM: Order Changed Performed By: #### L 500.2500, L100.0100 ####[facility] [address] [place], [address] CL Normal 98-108 [facility] Comment on above: Result Comment: Canc elled via OM: Order Changed Performed By: #### L 500.2500, L100.0100 ####[facility] [address] [place], [address] CO2 Normal 21.0-32.0 [facility] Comment on above: Result Comment: Canc elled via OM: Order Changed Performed By: #### L 500.2500, L100.0100 ####[facility] [address] [place], [address] CREAT,SERUM Normal 0.70-1.20 [facility] Comment on above: Result Comment: Canc elled via OM: Order Changed Performed By: #### L 500.2500, L100.0100 ####[facility] [address] [place], [address] eGFR Normal >60 [facility] Comment on above: Result Comment: Canc elled via OM: Order Changed Performed By: #### L 500.2500, L100.0100 ####[facility] [address] [place], [address] GAP Normal 5-15 [facility] Comment on above: Result Comment: Canc elled via OM: Order Changed Performed By: #### L 500.2500, L100.0100 ####[facility] [address] [place], [address] GLU Normal 70-99 [facility] Comment on above: Result Comment: Canc elled via OM: Order Changed Performed By: #### L 500.2500, L100.0100 ####[facility] [address] [place], [address] Potassium Normal 3.3-5.1 [facility] Comment on above: Result Comment: Canc elled via OM: Order Changed Performed By: #### L 500.2500, L100.0100 ####[facility] [address] [place], [address] Basic Metabolic Profile (BMP) Normal 133-145 [facility] Comment on above: Result Comment: Canc elled via OM: Order Changed Performed By: #### L 500.2500, L100.0100 ####[facility] [address] [place], [address] Bedside Glucoseon 06-13-2024 FINGERSTICK GLU 183 mg/dL High 74-106 [facility] Comment on above: Result Comment: NIKI GEMENT OF PATIENT CARE PER NURSING PROTOCOL Performed By: #### L 501.080 ####[facility] [address] [place], [address] FINGERSTICK GLU 147 mg/dL High 74-106 [facility] Comment on above: Result Comment: NIKI GEMENT OF PATIENT CARE PER NURSING PROTOCOL Performed By: #### L 501.080 ####[facility] [address] [place], [address] FINGERSTICK GLU 214 mg/dL High 74-106 [facility] Comment on above: Result Comment: NIKI GEMENT OF PATIENT CARE PER NURSING PROTOCOL Performed By: #### L 501.080 ####[facility] [address] [place], [address] FINGERSTICK GLU 135 mg/dL High 74-106 [facility] Comment on above: Result Comment: NIKI GEMENT OF PATIENT CARE PER NURSING PROTOCOL Performed By: #### L 501.080 ####[facility] [address] [place], [address] CBC W/Diff, Automatedon - Absolute Neut Normal 2.0-7.7 [facility] Comment on above: Result Comment: Canc elled via OM: Order Changed Performed By: #### L 500.2500, L100.0100 ####[facility] [address] [place], [address] HCT Normal 40-54 [facility] Comment on above: Result Comment: Canc elled via OM: Order Changed Performed By: #### L 500.2500, L100.0100 ####[facility] [address] [place], [address] HGB Normal 13.0-16.5 [facility] Comment on above: Result Comment: Canc elled via OM: Order Changed Performed By: #### L 500.2500, L100.0100 ####[facility] [address] [place], [address] MCH Normal 27.0-32.0 [facility] Comment on above: Result Comment: Canc elled via OM: Order Changed Performed By: #### L 500.2500, L100.0100 ####[facility] [address] [place], [address] MCHC Normal 32-36 [facility] Comment on above: Result Comment: Canc elled via OM: Order Changed Performed By: #### L 500.2500, L100.0100 ####[facility] [address] [place], [address] MCV Normal 80-94 [facility] Comment on above: Result Comment: Canc elled via OM: Order Changed Performed By: #### L 500.2500, L100.0100 ####[facility] [address] [place], [address] NEUT% Normal 47-70 [facility] Comment on above: Result Comment: Canc elled via OM: Order Changed Performed By: #### L 500.2500, L100.0100 ####[facility] [address] [place], [address] PLT Normal 150-450 [facility] Comment on above: Result Comment: Canc elled via OM: Order Changed Performed By: #### L 500.2500, L100.0100 ####[facility] [address] [place], [address] RBC Normal 4.6-6.2 [facility] Comment on above: Result Comment: Canc elled via OM: Order Changed Performed By: #### L 500.2500, L100.0100 ####[facility] [address] [place], [address] RDW CV Normal 11.6-14.6 [facility] Comment on above: Result Comment: Canc elled via OM: Order Changed Performed By: #### L 500.2500, L100.0100 ####[facility] [address] [place], [address] RDW SD Normal 35.1-43.9 [facility] Comment on above: Result Comment: Canc elled via OM: Order Changed Performed By: #### L 500.2500, L100.0100 ####[facility] [address] [place], [address] WBC Normal 4.4-11.0 [facility] Comment on above: Result Comment: Canc elled via OM: Order Changed Performed By: #### L 500.2500, L100.0100 ####[facility] [address] [place], [address] Bedside Glucoseon 06-12-2024 FINGERSTICK GLU 199 mg/dL High 74-106 [facility] Comment on above: Result Comment: NIKI GEMENT OF PATIENT CARE PER NURSING PROTOCOL Performed By: #### L 501.080 ####[facility] [address] [place], [address] FINGERSTICK GLU 107 mg/dL High 74-106 [facility] Comment on above: Result Comment: NIKI GEMENT OF PATIENT CARE PER NURSING PROTOCOL Performed By: #### L 501.080 ####[facility] [address] [place], [address] FINGERSTICK GLU 200 mg/dL High 74-106 [facility] Comment on above: Result Comment: NIKI GEMENT OF PATIENT CARE PER NURSING PROTOCOL Performed By: #### L 501.080 ####[facility] [address] [place], [address] FINGERSTICK GLU 177 mg/dL High 74-106 [facility] Comment on above: Result Comment: NIKI GEMENT OF PATIENT CARE PER NURSING PROTOCOL Performed By: #### L 501.080 ####[facility] [address] [place], [address] Bedside Glucoseon 06-11-2024 FINGERSTICK GLU 221 mg/dL High 74-106 [facility] Comment on above: Result Comment: NIKI GEMENT OF PATIENT CARE PER NURSING PROTOCOL Performed By: #### L 501.080 ####[facility] [address] [place], [address] FINGERSTICK GLU 190 mg/dL High 74-106 [place] [facility] Comment on above: Result Comment: NIKI GEMENT OF PATIENT CARE PER NURSING PROTOCOL Performed By: #### L 501.080 ####[facility] [address] [facility] [address] FINGERSTICK GLU 193 mg/dL High [address] [place] [address] Comment on above: Result Comment: NIKI GEMENT OF PATIENT CARE PER NURSING PROTOCOL Performed By: #### L 501.080 ####[facility] [address] [facility] [address] FINGERSTICK GLU 195 mg/dL High [address] [place] [address] Comment on above: Result Comment: NIKI GEMENT OF PATIENT CARE PER NURSING PROTOCOL Performed By: #### L 501.080 ####[facility] [address] [facility] [address] Bedside Glucoseon 06-10-2024 FINGERSTICK GLU 187 mg/dL High [address] [place] [address] Comment on above: Result Comment: NIKI GEMENT OF PATIENT CARE PER NURSING PROTOCOL Performed By: #### L 501.080 ####[facility] [address] [facility] [address] FINGERSTICK GLU 149 mg/dL High [address] [place] [address] Comment on above: Result Comment: NIKI GEMENT OF PATIENT CARE PER NURSING PROTOCOL Performed By: #### L 501.080 ####[facility] [address] [facility] [address] FINGERSTICK GLU 200 mg/dL High [address] [place] [address] Comment on above: Result Comment: NIKI GEMENT OF PATIENT CARE PER NURSING PROTOCOL Performed By: #### L 501.080 ####[facility] [address] [facility] [address] FINGERSTICK GLU 189 mg/dL High [address] [place] [address] Comment on above: Result Comment: NIKI GEMENT OF PATIENT CARE PER NURSING PROTOCOL Performed By: #### L 501.080 ####[facility] [address], [address] Bedside Glucoseon 06-09-2024 FINGERSTICK GLU 195 mg/dL High -106 [facility] Comment on above: Result Comment: NIKI GEMENT OF PATIENT CARE PER NURSING PROTOCOL Performed By: #### L 501.080 ####[facility] [address], [address] FINGERSTICK GLU 236 mg/dL High [facility]106 [facility] Comment on above: Result Comment: NIKI GEMENT OF PATIENT CARE PER NURSING PROTOCOL Performed By: #### L 501.080 ####[facility] [address] [place], [address] FINGERSTICK GLU 183 mg/dL High [address] [place] [address] Comment on above: Result Comment: NIKI GEMENT OF PATIENT CARE PER NURSING PROTOCOL Performed By: #### L 501.080 ####[facility] [address], [address] FINGERSTICK GLU 178 mg/dL High [facility]106 [facility] Comment on above: Result Comment: NIKI GEMENT OF PATIENT CARE PER NURSING PROTOCOL Performed By: #### L 501.080 ####[facility] [address] [place], [address] Bedside Glucoseon 06-08-2024 FINGERSTICK GLU 241 mg/dL High -106 [facility] Comment on above: Result Comment: NIKI GEMENT OF PATIENT CARE PER NURSING PROTOCOL Performed By: #### L 501.080 ####[facility] [address] [place], [address] FINGERSTICK GLU 172 mg/dL High [address] [place] [address] Comment on above: Result Comment: NIKI GEMENT OF PATIENT CARE PER NURSING PROTOCOL Performed By: #### L 501.080 ####[facility] [address] [place], [address] FINGERSTICK GLU 162 mg/dL High 74-106 [facility] Comment on above: Result Comment: NIKI GEMENT OF PATIENT CARE PER NURSING PROTOCOL Performed By: #### L 501.080 ####[facility] [address] [place], [address] FINGERSTICK GLU 144 mg/dL High [address] [place] [address] Comment on above: Result Comment: NIKI GEMENT OF PATIENT CARE PER NURSING PROTOCOL Performed By: #### L 501.080 ####[facility] [address] [place], [address] Glucose measurement at [facility] deOrdered By: Fredis Moon on 06-08-2024 Bedside Glucose (Misc Panel) 144 mg/dL High -[address] [place] [address] Comment on above: MANAGEMENT OF PATIEN T CARE PER NURSING PROTOCOL Absolute neutrophil countOrd ered By: Fredis Moon on 06-07-2024 Neutrophils (Bld) [#/Vol] 2.9 10*3/uL 2.0-7.7 [facility] Anion gap in Serum or Plasma Ordered By: Fredis Moon on 06-07-2024 Anion gap [Moles/Vol] 11 mmol/L -15 [facility] BUN/creatinine ratioOrdered By: Fredis Moon on 06-07-2024 Urea nitrogen/Creatinine [Mass ratio] 20.8 mg/mg High - [facility] Basic Metabolic Profile (BMP )on 06-07-2024 BUN/CRE 20.8 RATIO High 10-20 [facility] Comment on above: Performed By: #### L 500.2500, L100.0100 ####[facility] [address] [place], [address] Calcium [Mass/Vol] 8.6 mg/dL Normal 7.6-11.0 [facility] Comment on above: Performed By: #### L 500.2500, L100.0100 ####[facility] [address] [place], [address] Chloride [Moles/Vol] 105 mmol/L Normal 98-108 [facility] Comment on above: Performed By: #### L 500.2500, L100.0100 ####[facility] [address] [place], [address] CO2 [Moles/Vol] 21.6 mmol/L Normal 21.0-32.0 [facility] Comment on above: Performed By: #### L 500.2500, L100.0100 ####[facility] [address] [place], [address] Creatinine [Mass/Vol] 0.95 mg/dL Normal 0.70-1.20 [facility] Comment on above: Performed By: #### L 500.2500, L100.0100 ####[facility] [address] [place], [address] ECRCL 63.63 ml/min Normal 50-250 [facility] Comment on above: Performed By: #### L 500.2500, L100.0100 ####[facility] [address] [place], [address] GAP 11 Normal 5-15 [facility] Comment on above: Performed By: #### L 500.2500, L100.0100 ####[facility] [address] [place], [address] GFR/1.73 sq M.predicted among non-blacks MDRD (S/P/Bld) [Vol rate/Area] 80 mL/min/{1.73_m2} Normal >60 [facility] Comment on above: Result Comment: mL/m in/1.73m2 CKD-EPI Creatinine Equation (2020) Performed By: #### L 500.2500, L100.0100 ####[facility] [address] [place], [address] Glucose [Mass/Vol] 157 mg/dL High 70-99 [facility] Comment on above: Performed By: #### L 500.2500, L100.0100 ####[facility] [address] [place], [address] Potassium [Moles/Vol] 4.3 mmol/L Normal 3.3-5.1 [facility] Comment on above: Performed By: #### L 500.2500, L100.0100 ####[facility] [address] [place], [address] Sodium [Moles/Vol] 138 mmol/L Normal 133-145 [facility] Comment on above: Performed By: #### L 500.2500, L100.0100 ####[facility] [address] [place], [address] Urea nitrogen [Mass/Vol] 20 mg/dL High 4-19 [facility] Comment on above: Performed By: #### L 500.2500, L100.0100 ####[facility] [address] [place], [address] Basophil percentageOrdered B y: Fredis Red on 06-07-2024 Basophils/100 WBC (Bld) 0.8 % 0-1 [facility] Bedside Glucoseon 06-07-2024 FINGERSTICK GLU 179 mg/dL High 74-106 [facility] Comment on above: Result Comment: NIKI GEMENT OF PATIENT CARE PER NURSING PROTOCOL Performed By: #### L 501.080 ####[facility] [address] [place], [address] FINGERSTICK GLU 151 mg/dL High 74-106 [facility] Comment on above: Result Comment: NIKI GEMENT OF PATIENT CARE PER NURSING PROTOCOL Performed By: #### L 501.080 ####[facility] [address] [place], [address] FINGERSTICK GLU 219 mg/dL High 74-106 [facility] Comment on above: Result Comment: NIKI GEMENT OF PATIENT CARE PER NURSING PROTOCOL Performed By: #### L 501.080 ####[facility] [address] [place], [address] FINGERSTICK GLU 144 mg/dL High 74-106 [facility] Comment on above: Result Comment: NIKI ROMERO OF PATIENT CARE PER NURSING PROTOCOL Performed By: #### L 501.080 ####[facility] [address] [place], [address] CBC W/Diff, Automatedon 05-23 Absolute Lymph 1.28 X10 3/uL Normal 0.83-4.51 [facility] Comment on above: Performed By: #### L 100.0100 ####[facility] [address] [place], [address] Absolute Neut 2.9 X10 3/uL Normal 2.0-7.7 [facility] Comment on above: Performed By: #### L 100.0100 ####[facility] [address] [place], [address] Basophils/100 WBC (Bld) 0.8 % Normal 0-1 [facility] Comment on above: Performed By: #### L 100.0100 ####[facility] [address] [place], [address] Eosinophils/100 WBC (Bld) 4.3 % Normal 0-5 [facility] Comment on above: Performed By: #### L 100.0100 ####[facility] [address] [place], [address] Erythrocyte distribution width (RBC) [Ratio] 14.6 % Normal 11.6-14.6 [facility] Comment on above: Performed By: #### L 100.0100 ####[facility] [address] [place], [address] Hematocrit (Bld) [Volume fraction] 31.7 % Low 40-54 [facility] Comment on above: Performed By: #### L 100.0100 ####[facility] [address] [place], [address] Hemoglobin (Bld) [Mass/Vol] 10.3 g/dL Low 13.0-16.5 [facility] Comment on above: Performed By: #### L 100.0100 ####[facility] [address] [place], [address] IG% 0.800 Normal 0.0-0.9 [facility] Comment on above: Result Comment: IG% - Immature Granulocytes (promyelocytes, myelocytes andmetamyelocytes) > 1% indicates that a LEFT SHIFT is Present. Performed By: #### L 100.0100 ####[facility] [address] [place], [address] Lymphocytes/100 WBC (Bld) 25.0 % Normal 19-41 [facility] Comment on above: Performed By: #### L 100.0100 ####[facility] [address] [place], [address] MCH (RBC) [Entitic mass] 28.2 pg Normal 27.0-32.0 [facility] Comment on above: Performed By: #### L 100.0100 ####[facility] [address] [place], [address] MCHC (RBC) [Mass/Vol] 32.5 g/dL Normal 32-36 [facility] Comment on above: Performed By: #### L 100.0100 ####[facility] [address] [place], [address] MCV (RBC) [Entitic vol] 86.8 fL Normal 80-94 [facility] Comment on above: Performed By: #### L 100.0100 ####[facility] [address] [place], [address] Monocytes/100 WBC (Bld) 13.3 % High 0-10 [facility] Comment on above: Performed By: #### L 100.0100 ####[facility] [address] [place], [address] Neutrophils/100 WBC (Bld) 55.8 % Normal 47-70 [facility] Comment on above: Performed By: #### L 100.0100 ####[facility] [address] [place], [address] Nucleated RBC (Bld) [#/Vol] 0 10*3/uL Normal 0-5 [facility] Comment on above: Performed By: #### L 100.0100 ####[facility] [address] [place], [address] Platelet mean volume (Bld) [Entitic vol] 9.6 fL Normal 6.2-12.0 [facility] Comment on above: Performed By: #### L 100.0100 ####[facility] [address] [place], [address] Platelets (Bld) [#/Vol] 169 10*3/uL Normal 150-450 [facility] Comment on above: Performed By: #### L 100.0100 ####[facility] [address] [place], [address] RBC (Bld) [#/Vol] 3.65 10*6/uL Low 4.6-6.2 [facility] Comment on above: Performed By: #### L 100.0100 ####[facility] [address] [place], [address] RDW SD 46.5 fl High 35.1-43.9 [facility] Comment on above: Performed By: #### L 100.0100 ####[facility] [address] [place], [address] WBC (Bld) [#/Vol] 5.1 10*3/uL Normal 4.4-11.0 [facility] Comment on above: Performed By: #### L 100.0100 ####[facility] [address] [place], [address] Absolute Neut Normal 2.0-7.7 [facility] Comment on above: Result Comment: BARC ODE ERROR. REORDERED Performed By: #### L 500.2500, L100.0100 ####[facility] [address] [place], [address] HCT Normal 40-54 [facility] Comment on above: Result Comment: BARC ODE ERROR. REORDERED Performed By: #### L 500.2500, L100.0100 ####[facility] [address] [place], [address] HGB Normal 13.0-16.5 [facility] Comment on above: Result Comment: BARC ODE ERROR. REORDERED Performed By: #### L 500.2500, L100.0100 ####[facility] [address] [place], [address] MCH Normal 27.0-32.0 [facility] Comment on above: Result Comment: BARC ODE ERROR. REORDERED Performed By: #### L 500.2500, L100.0100 ####[facility] [address] [place], [address] MCHC Normal 32-36 [facility] Comment on above: Result Comment: BARC ODE ERROR. REORDERED Performed By: #### L 500.2500, L100.0100 ####[facility] [address] [place], [address] MCV Normal 80-94 [facility] Comment on above: Result Comment: BARC ODE ERROR. REORDERED Performed By: #### L 500.2500, L100.0100 ####[facility] [address] [place], [address] NEUT% Normal 47-70 [facility] Comment on above: Result Comment: BARC ODE ERROR. REORDERED Performed By: #### L 500.2500, L100.0100 ####[facility] [address] [place], [address] PLT Normal 150-450 [facility] Comment on above: Result Comment: BARC ODE ERROR. REORDERED Performed By: #### L 500.2500, L100.0100 ####[facility] [address] [place], [address] RBC Normal 4.6-6.2 [facility] Comment on above: Result Comment: BARC ODE ERROR. REORDERED Performed By: #### L 500.2500, L100.0100 ####[facility] [address] [place], [address] RDW CV Normal 11.6-14.6 [facility] Comment on above: Result Comment: BARC ODE ERROR. REORDERED Performed By: #### L 500.2500, L100.0100 ####[facility] [address] [place], [address] RDW SD Normal 35.1-43.9 [facility] Comment on above: Result Comment: BARC ODE ERROR. REORDERED Performed By: #### L 500.2500, L100.0100 ####[facility] [address] [place], [address] WBC Normal 4.4-11.0 [facility] Comment on above: Result Comment: BARC ODE ERROR. REORDERED Performed By: #### L 500.2500, L100.0100 ####[facility] [address] [place], [address] Carbon dioxide, total [Moles /volume] in Central venous bloodOrdered By: Fredis Moon on 06-07-2024 CO2 [Moles/Vol] 21.6 mmol/L 21.0-32.0 [facility] Chloride assayOrdered By: Mir Moon on 06-07-2024 Chloride [Moles/Vol] 105 mmol/L 98-108 [facility] Eosinophil percentageOrdered By: Fredis Moon 06-07-2024 Eosinophils/100 WBC (Bld) 4.3 % 0-5 [facility] Erythrocyte distribution wid th (RBC) [Ratio]Ordered By: Fredis Moon 06-07-2024 Erythrocyte distribution width (RBC) [Entitic vol] 46.5 fL High 35.1-43.9 [facility] Erythrocyte distribution wid th ratioOrdered By: Fredis Moon 06-07-2024 Erythrocyte distribution width (RBC) [Ratio] 14.6 % 11.6-14.6 [facility] Estimation of creatinine melissa aranceOrdered By: Fredis Moon 06-07-2024 Estimated Creatinine Clearance Calc 63.63 ml/min 50-250 [facility] GFR/1.73 sq M.predicted [place] g non-blacks MDRD (S/P/Bld) [Vol rate/Area]Ordered By: Fredis Moon 06-07-2024 Estimated GFR (MDRD) Non-Af Amer 80 >60 [facility] Comment on above: mL/min/1.73m2 CKD-EP I Creatinine Equation (2020) Hematocrit Auto (Bld) [Volum e fraction]Ordered By: Fredis Moon 06-07-2024 Hematocrit (Bld) [Volume fraction] 31.7 % Low 40-54 [facility] Hemoglobin measurementOrdere d By: Fredis Moon 06-07-2024 Hemoglobin (Bld) [Mass/Vol] 10.3 g/dL Low 13.0-16.5 [facility] Immature granulocytes/100 WB C Auto (Bld)Ordered By: Fredis Moon 06-07-2024 Immature granulocytes/100 WBC (Bld) 0.800 % 0.0-0.9 [facility] Comment on above: IG% - Immature Granu locytes (promyelocytes, myelocytes and metamyelocytes) > 1% indicates that a LEFT SHIFT is Present. Lymphocytes Auto (Unsp spec) [#/Vol]Ordered By: Fredis Moon 06-07-2024 Lymphocytes (Bld) [#/Vol] 1.28 10*3/uL 0.83-4.51 [facility] Lymphocytes/100 WBC Auto (Un sp spec)Ordered By: Fredis Moon on 06-07-2024 Lymphocytes/100 WBC (Bld) 25.0 % 19-41 [facility] MCV (mean corpuscular volume ) determinationOrdered By: Fredis Moon on 06-07-2024 MCV (RBC) [Entitic vol] 86.8 fL 80-94 [facility] Mean corpuscular hemoglobin (MCH) determinationOrdered By: Fredis Perryok on 06-07-2024 MCH (RBC) [Entitic mass] 28.2 pg 27.0-32.0 [facility] Mean corpuscular hemoglobin concentration (MCHC) determinationOrdered By: Fredis Moon on 06-07-2024 MCHC (RBC) [Mass/Vol] 32.5 g/dL 32-36 [facility] Mean platelet volume determi nationOrdered By: Fredis Moon on 06-07-2024 Platelet mean volume (Bld) [Entitic vol] 9.6 fL 6.2-12.0 [facility] Monocyte percentageOrdered B y: Fredis Perryok on 06-07-2024 Monocytes/100 WBC (Bld) 13.3 % High 0-10 [facility] Neutrophil percentageOrdered By: Fredis Perryok on 06-07-2024 Neutrophils/100 WBC (Bld) 55.8 % 47-70 [facility] Nucleated red blood cell per centageOrdered By: Fredis Perryok on 06-07-2024 Nucleated RBC/100 WBC (Bld) [Ratio] 0 % 0-5 [facility] Platelet countOrdered By: Mir Moon on 06-07-2024 Platelets (Bld) [#/Vol] 169 10*3/uL 150-450 [facility] Potassium (Unsp spec) [Mass/ Vol]Ordered By: Fredis Moon on 06-07-2024 Potassium [Moles/Vol] 4.3 mmol/L 3.3-5.1 [facility] RBC Auto (Bld) [#/Vol]Ordere d By: Fredis Moon on 04-16-2025 RBC (Bld) [#/Vol] 3.65 10*6/uL Low 4.6-6.2 [facility] Serum creatinine measurement (mass/volume)Ordered By: Fredis Moon on 06-07-2024 Creatinine [Mass/Vol] 0.95 mg/dL 0.70-1.20 [facility] Serum glucose measurement (m ass/volume)Ordered By: Fredis Moon on 06-07-2024 Glucose [Mass/Vol] 157 mg/dL High 70-99 [facility] Serum or plasma calcium mt urement (mass/volume)Ordered By: Fredis Moon on 06-07-2024 Calcium [Mass/Vol] 8.6 mg/dL 7.6-11.0 [facility] Serum or plasma urea nitroge n measurement (mass/volume)Ordered By: Fredis Moon on 06-07-2024 Urea nitrogen [Mass/Vol] 20 mg/dL High 4-19 [facility] Sodium levelOrdered By: Fredis Moon on 06-07-2024 Sodium [Moles/Vol] 138 mmol/L 133-145 [facility] White blood cell (WBC) count Ordered By: Fredis Moon on 06-07-2024 WBC (Bld) [#/Vol] 5.1 10*3/uL 4.4-11.0 [facility] Basic Metabolic Profile (BMP )on 06-06-2024 BUN Normal - [facility] Comment on above: Result Comment: Canc elled via OM: Order Changed Performed By: #### L 100.0100, L500.2500 ####[facility] [address] [place], [place], [address] BUN/CRE Normal 10-20 [facility] Comment on above: Result Comment: Canc elled via OM: Order Changed Performed By: #### L 100.0100, L500.2500 ####[facility] [address] [place], [address] Calcium Normal 7.6-11.0 [facility] Comment on above: Result Comment: Canc elled via OM: Order Changed Performed By: #### L 100.0100, L500.2500 ####[facility] [address] [place], [address] CL Normal 98-108 [facility] Comment on above: Result Comment: Canc elled via OM: Order Changed Performed By: #### L 100.0100, L500.2500 ####[facility] [address] [place], [address] CO2 Normal 21.0-32.0 [facility] Comment on above: Result Comment: Canc elled via OM: Order Changed Performed By: #### L 100.0100, L500.2500 ####[facility] [address] [place], [address] CREAT,SERUM Normal 0.70-1.20 [facility] Comment on above: Result Comment: Canc elled via OM: Order Changed Performed By: #### L 100.0100, L500.2500 ####[facility] [address] [place], [address] eGFR Normal >60 [facility] Comment on above: Result Comment: Canc elled via OM: Order Changed Performed By: #### L 100.0100, L500.2500 ####[facility] [address] [place], [address] GAP Normal 5-15 [facility] Comment on above: Result Comment: Canc elled via OM: Order Changed Performed By: #### L 100.0100, L500.2500 ####[facility] [address] [place], [address] GLU Normal 70-99 [facility] Comment on above: Result Comment: Canc elled via OM: Order Changed Performed By: #### L 100.0100, L500.2500 ####[facility] [address] [place], [address] Potassium Normal 3.3-5.1 [facility] Comment on above: Result Comment: Canc elled via OM: Order Changed Performed By: #### L 100.0100, L500.2500 ####[facility] [address] [place], [address] Basic Metabolic Profile (BMP) Normal 133-145 [facility] Comment on above: Result Comment: Canc elled via OM: Order Changed Performed By: #### L 100.0100, L500.2500 ####[facility] [address] [place], [address] Bedside Glucoseon 06-06-2024 FINGERSTICK GLU 175 mg/dL High 74-106 [facility] Comment on above: Result Comment: NIKI GEMENT OF PATIENT CARE PER NURSING PROTOCOL Performed By: #### L 501.080 ####[facility] [address] [place], [address] FINGERSTICK GLU 137 mg/dL High 74-106 [facility] Comment on above: Result Comment: NIKI GEMENT OF PATIENT CARE PER NURSING PROTOCOL Performed By: #### L 501.080 ####[facility] [address] [place], [address] FINGERSTICK GLU 156 mg/dL High 74-106 [facility] Comment on above: Result Comment: NIKI GEMENT OF PATIENT CARE PER NURSING PROTOCOL Performed By: #### L 501.080 ####[facility] [address] [place], [address] FINGERSTICK GLU 175 mg/dL High 74-106 [facility] Comment on above: Result Comment: NIKI GEMENT OF PATIENT CARE PER NURSING PROTOCOL Performed By: #### L 501.080 ####[facility] [address] [place], [address] CBC W/Diff, Automatedon 04- PATH REV Reviewed Normal [facility] Comment on above: Result Comment: SEE REPORT IN PATIENT'S EMR AMENDED REPORT 06/06/24 1507 PATH REV previously reported as: May foll Performed By: #### L 500.2500, L100.0100 ####[facility] [address] [place], [address] Absolute Neut Normal 2.0-7.7 [facility] Comment on above: Result Comment: Canc elled via OM: Order Changed Performed By: #### L 100.0100, L500.2500 ####[facility] [address] [place], [address] HCT Normal 40-54 [facility] Comment on above: Result Comment: Canc elled via OM: Order Changed Performed By: #### L 100.0100, L500.2500 ####[facility] [address] [place], [address] HGB Normal 13.0-16.5 [facility] Comment on above: Result Comment: Canc elled via OM: Order Changed Performed By: #### L 100.0100, L500.2500 ####[facility] [address] [place], [address] MCH Normal 27.0-32.0 [facility] Comment on above: Result Comment: Canc elled via OM: Order Changed Performed By: #### L 100.0100, L500.2500 ####[facility] [address] [place], [address] MCHC Normal 32-36 [facility] Comment on above: Result Comment: Canc elled via OM: Order Changed Performed By: #### L 100.0100, L500.2500 ####[facility] [address] [place], [address] MCV Normal 80-94 [facility] Comment on above: Result Comment: Canc elled via OM: Order Changed Performed By: #### L 100.0100, L500.2500 ####[facility] [address] [place], [address] NEUT% Normal 47-70 [facility] Comment on above: Result Comment: Canc elled via OM: Order Changed Performed By: #### L 100.0100, L500.2500 ####[facility] [address] [place], [address] PLT Normal 150-450 [facility] Comment on above: Result Comment: Canc elled via OM: Order Changed Performed By: #### L 100.0100, L500.2500 ####[facility] [address] [place], [address] RBC Normal 4.6-6.2 [facility] Comment on above: Result Comment: Canc elled via OM: Order Changed Performed By: #### L 100.0100, L500.2500 ####[facility] [address] [place], [address] RDW CV Normal 11.6-14.6 [facility] Comment on above: Result Comment: Canc elled via OM: Order Changed Performed By: #### L 100.0100, L500.2500 ####[facility] [address] [place], [address] RDW SD Normal 35.1-43.9 [facility] Comment on above: Result Comment: Canc elled via OM: Order Changed Performed By: #### L 100.0100, L500.2500 ####[facility] [address] [place], [address] WBC Normal 4.4-11.0 [facility] Comment on above: Result Comment: Canc elled via OM: Order Changed Performed By: #### L 100.0100, L500.2500 ####[facility] [address] [place], [address] Progress Noteon 06-06-2024 Progress Note 06/06/24 1104 BPCI Late Drop? Program late drop? No BPCI Outreach Assessment Selection Which outreach assessment are you completing? 21 Day BPCI - 21 Day Outreach Did patient answer phone call? Yes Have you noticed any negative changes in your condition? (Patient remains at rehab-[facility] with plans to get discharged home soon) Any questions about your condition you are unsure about that I can help clarify? Yes (Discussed rehab and progress made, important follow up appointments when home, surgery site, diabetes management) Normal [facility] Bedside Glucoseon 06-05-2024 FINGERSTICK GLU 176 mg/dL High 74-106 [facility] Comment on above: Result Comment: NIKI GEMENT OF PATIENT CARE PER NURSING PROTOCOL Performed By: #### L 501.080 ####[facility] [address] [facility] [address] FINGERSTICK GLU 135 mg/dL High [facility]106 [facility] Comment on above: Result Comment: NIKI GEMENT OF PATIENT CARE PER NURSING PROTOCOL Performed By: #### L 501.080 ####[facility] [address] [place], [address] FINGERSTICK GLU 205 mg/dL High [facility]106 [facility] Comment on above: Result Comment: NIKI GEMENT OF PATIENT CARE PER NURSING PROTOCOL Performed By: #### L 501.080 ####[facility] [address] [place], [address] FINGERSTICK GLU 193 mg/dL High [facility]106 [facility] Comment on above: Result Comment: NIKI GEMENT OF PATIENT CARE PER NURSING PROTOCOL Performed By: #### L 501.080 ####[facility] [address] [place], [address] Venous duplex ultrasound rep ortOrdered By: Daysi Monterroso on 06-05-2024 US Vein [facility] [address] [place] [address] Venous Duplex US, Unilateral 06/02/24 1112 MR#: [id number] Acct: [id number] Name: Joaquin THRASHER Rep #:[id number] : 1940 84 From: Daysi Clayton Attending Dr: Dr. Fredis Moon MD Status: REG CLI Ordering Dr: Fredis Moon MD Date: 01/16 Location: CVS Sex: M C Admitted: Reason For Study Reason For Study: Left leg pain RIGHT LEFT CFV is compressible, spontaneous, phasic, competent CFV is compressible, spontaneous, phasic, competent, and demonstrates normal augmentation. and demonstrates normal augmentation. Procedure FV is compressible, spontaneous, phasic, competent This is a venous duplex using B-mode, color flow and and demonstrates normal augmentation. spectral Doppler. POP V is compressible, spontaneous, phasic, competent Exam performed portable in patient room. and demonstrates normal augmentation. A preliminary report was called and/or faxed to TCU T/P Trunk is compressible. RN. PTV is compressible. LT PerV is compressible. GSV above kneewas harvested s/p CABG. Nonvascularized structure noted thoughour the left thigh at area of GSV harvesting. GSV below kneeis compressible. VL/Venous Duplex US, Unilateral Interpretation Summary Deep veins of the left lower extremity are patent and compressible segmentally. There is no evidence of left lower extremity deep vein thrombosis. Fluid collection noted at saphenous harvest site. Ordering Physician: Fredis Moon Chi Referring Physician: Fredis Moon Chi Performed By: Cee Huntley RVT 06/05/2403 Date _ Daysi Monterroso MD CC: Dr. Fredis Moon MD ~ Date Dictated: 06/02/24 1112 Date Transcribed: 06/05/24746 Sales Clerk: Signed [facility] Work Phone: Bedside Glucoseon 06-04-2024 FINGERSTICK GLU 232 mg/dL High 74-106 [facility] Comment on above: Result Comment: NIKI GEMENT OF PATIENT CARE PER NURSING PROTOCOL Performed By: #### L 501.080 ####[facility] [address] [place], [address] FINGERSTICK GLU 149 mg/dL High 74-106 [facility] Comment on above: Result Comment: NIKI GEMENT OF PATIENT CARE PER NURSING PROTOCOL Performed By: #### L 501.080 ####[facility] [address] [place], [address] FINGERSTICK GLU 202 mg/dL High -106 [facility] Comment on above: Result Comment: NIKI GEMENT OF PATIENT CARE PER NURSING PROTOCOL Performed By: #### L 501.080 ####[facility] [address] [place], [address] FINGERSTICK GLU 174 mg/dL High [facility]106 [facility] Comment on above: Result Comment: NIKI GEMENT OF PATIENT CARE PER NURSING PROTOCOL Performed By: #### L 501.080 ####[facility] [address] [place], [address] Bedside Glucoseon 06-03-2024 FINGERSTICK GLU 218 mg/dL High 74-106 [facility] Comment on above: Result Comment: NIKI GEMENT OF PATIENT CARE PER NURSING PROTOCOL Performed By: #### L 501.080 ####[facility] [address] [place], [address] FINGERSTICK GLU 160 mg/dL High -106 [facility] Comment on above: Result Comment: NIKI GEMENT OF PATIENT CARE PER NURSING PROTOCOL Performed By: #### L 501.080 ####[facility] [address] [place], [address] FINGERSTICK GLU 159 mg/dL High -[address] [place] [address] Comment on above: Result Comment: NIKI GEMENT OF PATIENT CARE PER NURSING PROTOCOL Performed By: #### L 501.080 ####[facility] [address] [place], [address] FINGERSTICK GLU 157 mg/dL High 74-106 [facility] Comment on above: Result Comment: NIKI GEMENT OF PATIENT CARE PER NURSING PROTOCOL Performed By: #### L 501.080 ####[facility] [address] [place], [address] Bedside Glucoseon 06-02-2024 FINGERSTICK GLU 200 mg/dL High [address] [place] [address] Comment on above: Result Comment: NIKI GEMENT OF PATIENT CARE PER NURSING PROTOCOL Performed By: #### L 501.080 ####[facility] [address] [facility] [address] FINGERSTICK GLU 165 mg/dL High -106 [facility] Comment on above: Result Comment: NIKI GEMENT OF PATIENT CARE PER NURSING PROTOCOL Performed By: #### L 501.080 ####[facility] [address] [place], [address] FINGERSTICK GLU 149 mg/dL High [address] [place] [address] Comment on above: Result Comment: NIKI GEMENT OF PATIENT CARE PER NURSING PROTOCOL Performed By: #### L 501.080 ####[facility] [address] [place], [address] FINGERSTICK GLU 173 mg/dL High [facility]106 [facility] Comment on above: Result Comment: NIKI GEMENT OF PATIENT CARE PER NURSING PROTOCOL Performed By: #### L 501.080 ####[facility] [address] [place], [address] Venous Duplex US, Unilateral on 06-02-2024 Venous Duplex US, Unilateral Normal [facility] Bedside Glucoseon 06-01-2024 FINGERSTICK GLU 149 mg/dL High 74-106 [facility] Comment on above: Result Comment: NIKI GEMENT OF PATIENT CARE PER NURSING PROTOCOL Performed By: #### L 501.080 ####[facility] [address] [place], [address] FINGERSTICK GLU 125 mg/dL High 74-106 [facility] Comment on above: Result Comment: NIKI GEMENT OF PATIENT CARE PER NURSING PROTOCOL Performed By: #### L 501.080 ####[facility] [address] [place], [address] FINGERSTICK GLU 168 mg/dL High 74-106 [facility] Comment on above: Result Comment: NIKI GEMENT OF PATIENT CARE PER NURSING PROTOCOL Performed By: #### L 501.080 ####[facility] [address] [place], [address] FINGERSTICK GLU 130 mg/dL High 74-106 [facility] Comment on above: Result Comment: NIKI GEMENT OF PATIENT CARE PER NURSING PROTOCOL Performed By: #### L 501.080 ####[facility] [address] [place], [address] Basic Metabolic Profile (BMP )on 05-31-2024 BUN/CRE 19.0 RATIO Normal 10-20 [facility] Comment on above: Performed By: #### L 100.0100, L500.2500 ####[facility] [address] [place], [address] Calcium [Mass/Vol] 8.6 mg/dL Normal 7.6-11.0 [facility] Comment on above: Performed By: #### L 100.0100, L500.2500 ####[facility] [address] [place], [address] Chloride [Moles/Vol] 105 mmol/L Normal 98-108 [facility] Comment on above: Performed By: #### L 100.0100, L500.2500 ####[facility] [address] [place], [address] CO2 [Moles/Vol] 22.1 mmol/L Normal 21.0-32.0 [facility] Comment on above: Performed By: #### L 100.0100, L500.2500 ####[facility] [address] [place], [address] Creatinine [Mass/Vol] 1.04 mg/dL Normal 0.70-1.20 [facility] Comment on above: Performed By: #### L 100.0100, L500.2500 ####[facility] [address] [place], [address] ECRCL 58.66 ml/min Normal 50-250 [facility] Comment on above: Performed By: #### L 100.0100, L500.2500 ####[facility] [address] [place], [address] GAP 11 Normal 5-15 [facility] Comment on above: Performed By: #### L 100.0100, L500.2500 ####[facility] [address] [place], [address] GFR/1.73 sq M.predicted among non-blacks MDRD (S/P/Bld) [Vol rate/Area] 72 mL/min/{1.73_m2} Normal >60 [facility] Comment on above: Result Comment: mL/m in/1.73m2 CKD-EPI Creatinine Equation (2020) Performed By: #### L 100.0100, L500.2500 ####[facility] [address] [place], [address] Glucose [Mass/Vol] 118 mg/dL High 70-99 [facility] Comment on above: Performed By: #### L 100.0100, L500.2500 ####[facility] [address] [place], [address] Potassium [Moles/Vol] 4.1 mmol/L Normal 3.3-5.1 [facility] Comment on above: Performed By: #### L 100.0100, L500.2500 ####[facility] [address] [place], [address] Sodium [Moles/Vol] 138 mmol/L Normal 133-145 [facility] Comment on above: Performed By: #### L 100.0100, L500.2500 ####[facility] [address] [place], [address] Urea nitrogen [Mass/Vol] 20 mg/dL High 4-19 [facility] Comment on above: Performed By: #### L 100.0100, L500.2500 ####[facility] [address] [place], [address] Bedside Glucoseon 05-31-2024 FINGERSTICK GLU 141 mg/dL High 74-106 [facility] Comment on above: Result Comment: NIKI GEMENT OF PATIENT CARE PER NURSING PROTOCOL Performed By: #### L 501.080 ####[facility] [address] [place], [address] FINGERSTICK GLU 110 mg/dL High 74-106 [facility] Comment on above: Result Comment: NIKI GEMENT OF PATIENT CARE PER NURSING PROTOCOL Performed By: #### L 501.080 ####[facility] [address] [place], [address] FINGERSTICK GLU 180 mg/dL High 74-106 [facility] Comment on above: Result Comment: NIKI GEMENT OF PATIENT CARE PER NURSING PROTOCOL Performed By: #### L 501.080 ####[facility] [address] [place], [address] FINGERSTICK GLU 133 mg/dL High 74-106 [facility] Comment on above: Result Comment: NIKI GEMENT OF PATIENT CARE PER NURSING PROTOCOL Performed By: #### L 501.080 ####[facility] [address] [place], [address] CBC W/Diff, Automatedon 04-0 9-2024 Absolute Lymph 1.25 X10 3/uL Normal 0.83-4.51 [facility] Comment on above: Performed By: #### L 100.0100 ####[facility] [address] [place], [address] Absolute Neut 2.5 X10 3/uL Normal 2.0-7.7 [facility] Comment on above: Performed By: #### L 100.0100 ####[facility] [address] [place], [address] Basophils/100 WBC (Bld) 0.9 % Normal 0-1 [facility] Comment on above: Performed By: #### L 100.0100 ####[facility] [address] [place], [address] Eosinophils/100 WBC (Bld) 3.7 % Normal 0-5 [facility] Comment on above: Performed By: #### L 100.0100 ####[facility] [address] [place], [address] Erythrocyte distribution width (RBC) [Ratio] 14.7 % High 11.6-14.6 [facility] Comment on above: Performed By: #### L 100.0100 ####[facility] [address] [place], [address] Hematocrit (Bld) [Volume fraction] 32.0 % Low 40-54 [facility] Comment on above: Performed By: #### L 100.0100 ####[facility] [address] [place], [address] Hemoglobin (Bld) [Mass/Vol] 10.0 g/dL Low 13.0-16.5 [facility] Comment on above: Performed By: #### L 100.0100 ####[facility] [address] [place], [address] IG% 0.900 Normal 0.0-0.9 [facility] Comment on above: Result Comment: IG% - Immature Granulocytes (promyelocytes, myelocytes andmetamyelocytes) > 1% indicates that a LEFT SHIFT is Present. Performed By: #### L 100.0100 ####[facility] [address] [place], [address] Lymphocytes/100 WBC (Bld) 27.1 % Normal 19-41 [facility] Comment on above: Performed By: #### L 100.0100 ####[facility] [address] [place], [address] MCH (RBC) [Entitic mass] 27.7 pg Normal 27.0-32.0 [facility] Comment on above: Performed By: #### L 100.0100 ####[facility] [address] [place], [address] MCHC (RBC) [Mass/Vol] 31.3 g/dL Low 32-36 [facility] Comment on above: Performed By: #### L 100.0100 ####[facility] [address] [place], [address] MCV (RBC) [Entitic vol] 88.6 fL Normal 80-94 [facility] Comment on above: Performed By: #### L 100.0100 ####[facility] [address] [place], [address] Monocytes/100 WBC (Bld) 12.4 % High 0-10 [facility] Comment on above: Performed By: #### L 100.0100 ####[facility] [address] [place], [address] Neutrophils/100 WBC (Bld) 55.0 % Normal 47-70 [facility] Comment on above: Performed By: #### L 100.0100 ####[facility] [address] [place], [address] Nucleated RBC (Bld) [#/Vol] 0 10*3/uL Normal 0-5 [facility] Comment on above: Performed By: #### L 100.0100 ####[facility] [address] [place], [address] Platelet mean volume (Bld) [Entitic vol] 9.2 fL Normal 6.2-12.0 [facility] Comment on above: Performed By: #### L 100.0100 ####[facility] [address] [place], [address] Platelets (Bld) [#/Vol] 269 10*3/uL Normal 150-450 [facility] Comment on above: Performed By: #### L 100.0100 ####[facility] [address] [place], [address] RBC (Bld) [#/Vol] 3.61 10*6/uL Low 4.6-6.2 [facility] Comment on above: Performed By: #### L 100.0100 ####[facility] [address] [place], [address] RDW SD 47.5 fl High 35.1-43.9 [facility] Comment on above: Performed By: #### L 100.0100 ####[facility] [address] [place], [address] WBC (Bld) [#/Vol] 4.6 10*3/uL Normal 4.4-11.0 [facility] Comment on above: Performed By: #### L 100.0100 ####[facility] [address] [place], [address] Absolute Neut Normal 2.0-7.7 [facility] Comment on above: Result Comment: BARC ODE ERROR. REORDERED Performed By: #### L 100.0100, L500.2500 ####[facility] [address] [place], [address] HCT Normal 40-54 [facility] Comment on above: Result Comment: BARC ODE ERROR. REORDERED Performed By: #### L 100.0100, L500.2500 ####[facility] [address] [place], [address] HGB Normal 13.0-16.5 [facility] Comment on above: Result Comment: BARC ODE ERROR. REORDERED Performed By: #### L 100.0100, L500.2500 ####[facility] [address] [place], [address] MCH Normal 27.0-32.0 [facility] Comment on above: Result Comment: BARC ODE ERROR. REORDERED Performed By: #### L 100.0100, L500.2500 ####[facility] [address] [place], [address] MCHC Normal 32-36 [facility] Comment on above: Result Comment: BARC ODE ERROR. REORDERED Performed By: #### L 100.0100, L500.2500 ####[facility] [address] [place], [address] MCV Normal 80-94 [facility] Comment on above: Result Comment: BARC ODE ERROR. REORDERED Performed By: #### L 100.0100, L500.2500 ####[facility] [address] [place], [address] NEUT% Normal 47-70 [facility] Comment on above: Result Comment: BARC ODE ERROR. REORDERED Performed By: #### L 100.0100, L500.2500 ####[facility] [address] [place], [address] PLT Normal 150-450 [facility] Comment on above: Result Comment: BARC ODE ERROR. REORDERED Performed By: #### L 100.0100, L500.2500 ####[facility] [address] [place], [address] RBC Normal 4.6-6.2 [facility] Comment on above: Result Comment: BARC ODE ERROR. REORDERED Performed By: #### L 100.0100, L500.2500 ####[facility] [address] [place], [address] RDW CV Normal 11.6-14.6 [facility] Comment on above: Result Comment: BARC ODE ERROR. REORDERED Performed By: #### L 100.0100, L500.2500 ####[facility] [address] [place], [address] RDW SD Normal 35.1-43.9 [facility] Comment on above: Result Comment: BARC ODE ERROR. REORDERED Performed By: #### L 100.0100, L500.2500 ####[facility] [address] [place], [address] WBC Normal 4.4-11.0 [facility] Comment on above: Result Comment: BARC ODE ERROR. REORDERED Performed By: #### L 100.0100, L500.2500 ####[facility] [address] [place], [address] Basic Metabolic Profile (BMP )on 05-30-2024 BUN Normal 4-19 [facility] Comment on above: Result Comment: Canc elled via OM: Order Changed Performed By: #### L 500.2500, L100.0100 ####[facility] [address] [place], [address] BUN/CRE Normal 10-20 [facility] Comment on above: Result Comment: Canc elled via OM: Order Changed Performed By: #### L 500.2500, L100.0100 ####[facility] [address] [place], [address] Calcium Normal 7.6-11.0 [facility] Comment on above: Result Comment: Canc elled via OM: Order Changed Performed By: #### L 500.2500, L100.0100 ####[facility] [address] [place], [address] CL Normal 98-108 [facility] Comment on above: Result Comment: Canc elled via OM: Order Changed Performed By: #### L 500.2500, L100.0100 ####[facility] [address] [place], [address] CO2 Normal 21.0-32.0 [facility] Comment on above: Result Comment: Canc elled via OM: Order Changed Performed By: #### L 500.2500, L100.0100 ####[facility] [address] [place], [address] CREAT,SERUM Normal 0.70-1.20 [facility] Comment on above: Result Comment: Canc elled via OM: Order Changed Performed By: #### L 500.2500, L100.0100 ####[facility] [address] [place], [address] eGFR Normal >60 [facility] Comment on above: Result Comment: Canc elled via OM: Order Changed Performed By: #### L 500.2500, L100.0100 ####[facility] [address] [place], [address] GAP Normal 5-15 [facility] Comment on above: Result Comment: Canc elled via OM: Order Changed Performed By: #### L 500.2500, L100.0100 ####[facility] [address] [place], [address] GLU Normal 70-99 [facility] Comment on above: Result Comment: Canc elled via OM: Order Changed Performed By: #### L 500.2500, L100.0100 ####[facility] [address] [place], [address] Potassium Normal 3.3-5.1 [facility] Comment on above: Result Comment: Canc elled via OM: Order Changed Performed By: #### L 500.2500, L100.0100 ####[facility] [address] [place], [address] Basic Metabolic Profile (BMP) Normal 133-145 [facility] Comment on above: Result Comment: Canc elled via OM: Order Changed Performed By: #### L 500.2500, L100.0100 ####[facility] [address] [place], [address] Bedside Glucoseon 05-30-2024 FINGERSTICK GLU 157 mg/dL High 74-106 [facility] Comment on above: Result Comment: NIKI GEMENT OF PATIENT CARE PER NURSING PROTOCOL Performed By: #### L 501.080 ####[facility] [address] [place], [address] FINGERSTICK GLU 84 mg/dL Normal 74-106 [facility] Comment on above: Result Comment: NIKI GEMENT OF PATIENT CARE PER NURSING PROTOCOL Performed By: #### L 501.080 ####[facility] [address] [place], [address] FINGERSTICK GLU 123 mg/dL High 74-106 [facility] Comment on above: Result Comment: NIKI GEMENT OF PATIENT CARE PER NURSING PROTOCOL Performed By: #### L 501.080 ####[facility] [address] [place], [address] FINGERSTICK GLU 130 mg/dL High 74-106 [facility] Comment on above: Result Comment: NIKI GEMENT OF PATIENT CARE PER NURSING PROTOCOL Performed By: #### L 501.080 ####[facility] [facility] [address] [place], [address] CBC W/Diff, Automatedon 04-0 -2024 Absolute Neut Normal 2.0-7.7 [facility] Comment on above: Result Comment: Canc elled via OM: Order Changed Performed By: #### L 500.2500, L100.0100 ####[facility] [address] [place], [address] HCT Normal 40-54 [facility] Comment on above: Result Comment: Canc elled via OM: Order Changed Performed By: #### L 500.2500, L100.0100 ####[facility] [address] [place], [address] HGB Normal 13.0-16.5 [facility] Comment on above: Result Comment: Canc elled via OM: Order Changed Performed By: #### L 500.2500, L100.0100 ####[facility] [address] [place], [address] MCH Normal 27.0-32.0 [facility] Comment on above: Result Comment: Canc elled via OM: Order Changed Performed By: #### L 500.2500, L100.0100 ####[facility] [address] [place], [address] MCHC Normal 32-36 [facility] Comment on above: Result Comment: Canc elled via OM: Order Changed Performed By: #### L 500.2500, L100.0100 ####[facility] [address] [place], [address] MCV Normal 80-94 [facility] Comment on above: Result Comment: Canc elled via OM: Order Changed Performed By: #### L 500.2500, L100.0100 ####[facility] [address] [place], [address] NEUT% Normal 47-70 [facility] Comment on above: Result Comment: Canc elled via OM: Order Changed Performed By: #### L 500.2500, L100.0100 ####[facility] [address] [place], [address] PLT Normal 150-450 [facility] Comment on above: Result Comment: Canc elled via OM: Order Changed Performed By: #### L 500.2500, L100.0100 ####[facility] [address] [place], [address] RBC Normal 4.6-6.2 [facility] Comment on above: Result Comment: Canc elled via OM: Order Changed Performed By: #### L 500.2500, L100.0100 ####[facility] [address] [place], [address] RDW CV Normal 11.6-14.6 [facility] Comment on above: Result Comment: Canc elled via OM: Order Changed Performed By: #### L 500.2500, L100.0100 ####[facility] [address] [place], [address] RDW SD Normal 35.1-43.9 [facility] Comment on above: Result Comment: Canc elled via OM: Order Changed Performed By: #### L 500.2500, L100.0100 ####[facility] [address] [place], [address] WBC Normal 4.4-11.0 [facility] Comment on above: Result Comment: Canc elled via OM: Order Changed Performed By: #### L 500.2500, L100.0100 ####[facility] [address] [place], [address] Bedside Glucoseon 05-29-2024 FINGERSTICK GLU 146 mg/dL High 74-106 [facility] Comment on above: Result Comment: NIKI GEMENT OF PATIENT CARE PER NURSING PROTOCOL Performed By: #### L 501.080 ####[facility] [address] [place], [address] FINGERSTICK GLU 160 mg/dL High 74-106 [facility] Comment on above: Result Comment: NIKI GEMENT OF PATIENT CARE PER NURSING PROTOCOL Performed By: #### L 501.080 ####[facility] [address] [place], [address] FINGERSTICK GLU 159 mg/dL High 74-106 [facility] Comment on above: Result Comment: NIKI GEMENT OF PATIENT CARE PER NURSING PROTOCOL Performed By: #### L 501.080 ####[facility] [address] [place], [address] FINGERSTICK GLU 114 mg/dL High 74-106 [facility] Comment on above: Result Comment: NIKI GEMENT OF PATIENT CARE PER NURSING PROTOCOL Performed By: #### L 501.080 ####[facility] [address] [place], [address] Bedside Glucoseon 05-28-2024 FINGERSTICK GLU 146 mg/dL High 74-106 [facility] Comment on above: Result Comment: NIKI GEMENT OF PATIENT CARE PER NURSING PROTOCOL Performed By: #### L 501.080 ####[facility] [address] [place], [address] FINGERSTICK GLU 101 mg/dL Normal 74-106 [facility] Comment on above: Result Comment: NIKI GEMENT OF PATIENT CARE PER NURSING PROTOCOL Performed By: #### L 501.080 ####[facility] [address] [place], [address] FINGERSTICK GLU 103 mg/dL Normal 74-106 [facility] Comment on above: Result Comment: NIKI GEMENT OF PATIENT CARE PER NURSING PROTOCOL Performed By: #### L 501.080 ####[facility] [address] [place], [address] FINGERSTICK GLU 143 mg/dL High 74-106 [facility] Comment on above: Result Comment: NIKI GEMENT OF PATIENT CARE PER NURSING PROTOCOL Performed By: #### L 501.080 ####[facility] [address] [place], [address] Bedside Glucoseon 05-27-2024 FINGERSTICK GLU 176 mg/dL High 74-106 [facility] Comment on above: Result Comment: NIKI GEMENT OF PATIENT CARE PER NURSING PROTOCOL Performed By: #### L 501.080 ####[facility] [address] [place], [address] FINGERSTICK GLU 98 mg/dL Normal -106 [facility] Comment on above: Result Comment: NIKI GEMENT OF PATIENT CARE PER NURSING PROTOCOL Performed By: #### L 501.080 ####[facility] [address] [place], [address] FINGERSTICK GLU 238 mg/dL High 74-106 [facility] Comment on above: Result Comment: NIKI GEMENT OF PATIENT CARE PER NURSING PROTOCOL Performed By: #### L 501.080 ####[facility] [address] [place], [address] FINGERSTICK GLU 106 mg/dL Normal 74-106 [facility] Comment on above: Result Comment: NIKI GEMENT OF PATIENT CARE PER NURSING PROTOCOL Performed By: #### L 501.080 ####[facility] [address] [place], [address] Calculated total iron bindin g capacityOrdered By: Fredis Moon on 05-27-2024 Total Iron Binding Capacity 258 ug/dL 250-450 [facility] Iron (Unsp spec) [Mass/Mass] Ordered By: Fredis Moon on 05-27-2024 Iron [Mass/Vol] 36 ug/dL Low 65-175 [facility] Iron measurement (mass/mass) Ordered By: Fredis Moon on 05-27-2024 Iron (Unsp spec) [Mass/Mass] 36 ug/dL Low 65-175 [facility] Iron saturation [Mass fracti on]Ordered By: Fredis Moon on 05-27-2024 Iron Saturation 14.0 % 55 [facility] Iron+Iron Binding Capacityon 05-27-2024 Iron [Mass/Vol] 36 ug/dL Low 65-175 [facility] Comment on above: Performed By: #### L 503.6030 ####[facility] [address] [facility] [address] IRON SATURATION 14.0 Normal 9-55 [facility] Comment on above: Performed By: #### L 503.6030 ####[facility] [address] [facility] [address] TIBC 258 ug/dL Normal 250-450 [facility] Comment on above: Performed By: #### L 503.6030 ####[facility] [address] [facility] [address] UIBC 222 ug/dL Low 228-428 [facility] Comment on above: Performed By: #### L 503.6030 ####[facility] [address] [facility] [address] No Panel InformationOrdered By: Fredis Moon on 05-27-2024 Unsaturated Iron Binding Capacity 222 ug/dL Low 228-428 [facility] Serum or plasma iron saturat ion measurement (mass fraction)Ordered By: Fredis Moon on 05-27-2024 Iron saturation [Mass fraction] 14.0 % [facility] Bedside Glucoseon 05-26-2024 FINGERSTICK GLU 123 mg/dL High 74-106 [facility] Comment on above: Result Comment: NIKI ROMERO OF PATIENT CARE PER NURSING PROTOCOL Performed By: #### L 501.080 ####[facility] [address] [facility] [address] FINGERSTICK GLU 132 mg/dL High 74-106 [facility] Comment on above: Result Comment: NIKI GEMENT OF PATIENT CARE PER NURSING PROTOCOL Performed By: #### L 501.080 ####[facility] [address] [place], [address] FINGERSTICK GLU 147 mg/dL High 74-106 [facility] Comment on above: Result Comment: NIKI GEMENT OF PATIENT CARE PER NURSING PROTOCOL Performed By: #### L 501.080 ####[facility] [address] [place], [address] FINGERSTICK GLU 126 mg/dL High 74-106 [facility] Comment on above: Result Comment: NIKI GEMENT OF PATIENT CARE PER NURSING PROTOCOL Performed By: #### L 501.080 ####[facility] [address] [place], [address] HH, Hemoglobin AND Hematocri ton 05-26-2024 Hematocrit (Bld) [Volume fraction] 31.0 % Low 40-54 [facility] Comment on above: Performed By: #### L 100.0600 ####[facility] [address] [place], [address] Hemoglobin (Bld) [Mass/Vol] 9.9 g/dL Low 13.0-16.5 [facility] Comment on above: Performed By: #### L 100.0600 ####[facility] [address] [place], [address] Bedside Glucoseon 05-25-2024 FINGERSTICK GLU 195 mg/dL High 74-106 [facility] Comment on above: Result Comment: NIKI GEMENT OF PATIENT CARE PER NURSING PROTOCOL Performed By: #### L 501.080 ####[facility] [address] [place], [address] FINGERSTICK GLU 119 mg/dL High 74-106 [facility] Comment on above: Result Comment: NIKI GEMENT OF PATIENT CARE PER NURSING PROTOCOL Performed By: #### L 501.080 ####[facility] [address] [place], [address] FINGERSTICK GLU 247 mg/dL High 74-106 [facility] Comment on above: Result Comment: NIKI GEMENT OF PATIENT CARE PER NURSING PROTOCOL Performed By: #### L 501.080 ####[facility] [address] [facility] [address] FINGERSTICK GLU 172 mg/dL High 74-106 [facility] Comment on above: Result Comment: NIKI GEMENT OF PATIENT CARE PER NURSING PROTOCOL Performed By: #### L 501.080 ####[facility] [address] [place], [address] FINGERSTICK GLU 128 mg/dL High 74-106 [facility] Comment on above: Result Comment: NIKI GEMENT OF PATIENT CARE PER NURSING PROTOCOL Performed By: #### L 501.080 ####[facility] [address] [place], [address] Progress Noteon 05-25-2024 Progress Note [facility] Group: [facility] [place] [address] [facility] [address] Dept: [phone] Dept Loc: [phone] Visit type: Established patient Reason for Visit: Follow-up Assessment and Plan 1. S/P CABG (coronary artery bypass graft) 05/10/24: s/p CABGx3 (PADILLA-LAD, RSVG-OM1, RSVG-PDA with endarterectomy), LEVH, [place] with Dr. Velasco -So far so good. -No pain in chest. -Transfused 2uPRBC at rehab. -Swelling and bruising in legs getting better. -DVT ultrasound negative at rehab, has small lumps on LLE. -Sharp pain in L foot upon standing, described as nerve pain. Encouraged patient to talk to medical doctor at rehab to consider gabapentin. POD#15 Day from Discharge (05/16/24) #09 -Reviewed current meds: continue as prescribed. -Surgical Incisions: Per patient-healing appropriately, well approximated, no s/s of infection. -Physical therapy as outlined in discharge instructions.Not ready for Cardiac Rehab and Not ready to drive. -Acute Post-Operative Pain controlled. Patient no longer taking narcotic opioid medication. Tx plan: Over The Counter-Tylenol (acetaminophen) 500 mg 1-2 tablets every 6 hours. No more than 4,000 mg in 24 hour period, Over The Counter-Motrin (ibuprofen) 200-400 mg by mouth every 4-6 hours (or) 600-800mg every 8 hours. No more than 3,200 mg per day, Over The Counter-pain patches (Salon pas) may used as needed next to incision but not directly on your incision, and Referral placed to Pain Management. Weight restriction measures 1-4 weeks from date of surgery- 10lbs weight restriction: 5-8 weeks from date of surgery- 20lbs weight restriction: 9-12 weeks from date of surgery-30lbs weight restriction approximate end date: Disposition: Phone call in 2 weeks, will plan in person visit once out of rehab. Patient verbalized understanding of plan and stated they would call if any questions or concerns arise. Treatment Team: PCP: KELSEY MOON MD Patient was identified and seen today via Telehealth by agreement and consent. I used the following Telehealth technology: Audio capability only. Total length of call 20 minutes. The patient was offered and advised video for a more comprehensive evaluation, but the patient declined or was unable to use video. Patient location: Patient Location: Rehab . This patient encounter is appropriate and reasonable under the circumstances: Currently at [facility] . The patient has been advised of the potential risks and limitations of this mode of treatment (including but not limited to the absence of in-person examination) and has agreed to be treated in a remote fashion in spite of them. Any and all of the patient's/patient's family's questions on this issue have been answered and I have made no promises or guarantees to the patient. The patient has also been advised to contact this office for worsening conditions or problems, and seek emergency medical treatment and/or call 911 if the patient deems either necessary. The patient stated that they are currently in the state [facility]. If the patient is a minor, permission has been obtained by the parent or guardian for the patient to receive medical care at this visit. Subjective HPI: 84 y.o. male referred by Dr. Elder for CABG. Patient has history of CAD, carotid artery disease, dyslipidemia, DM, and Parkinsonism. Pt saw Cardiology on 03/23/24 and reported SOB and chest burning with exertion a month prior. Stress test was ordered which showed moderate size reversible perfusion defect of the lateral wall suggestive of ischemia. Echocardiogram was also completed which demonstrated mild to moderate mitral valve insufficiency. Pt then underwent a heart catheterization on 04/24/24 which demonstrated severe multivessel CAD. Seen Dr. Velasco in OP setting on 04/25/24, agreeable to CABG and underwent surgery on 05/10/24. Extubated post-op as expected. Requiring low dose pressor support briefly, resuscitated with fluids, given 1uPRBC. Chest tubes removed. Patient progressing with PT/OT but still requiring assistance. Diuresis started for increased weight and fluid overload. Tolerating well. Started on GDMT for CABG. Able to discharge to IPR on POD#06. 05/25/24: Spoke with patient and on phone, he is currently in [facility]. He is doing well, patient feels he could tolerate more intense rehab, encouraged to speak to rehab managers for possibility of transfer to different unit. Swelling in LLE improving, as is bruising. Has 3 small lumps on LLE, DVT ultrasound performed and negative. Pain has been tolerable. Incisions healing well. Allergies Allergen Reactions Rosuvastatin Other Reaction(s): Flu like symptoms Tape Other Reaction(s): skin tears Outpatient Medications Prior to Visit Medication Sig Dispense Refill acetaminophen (Tylenol) 500 MG tablet Take 2 tablets (1,000 mg) by mouth every 8 hours. aspirin 81 MG chewable tablet (more content not included)... Normal [facility] Basic Metabolic Profile (BMP )on 05-24-2024 BUN/CRE 22.9 RATIO High 10-20 [facility] Comment on above: Performed By: #### L 500.2500, L100.0100 ####[facility] [address] [place], [address] Calcium [Mass/Vol] 8.9 mg/dL Normal 7.6-11.0 [facility] Comment on above: Performed By: #### L 500.2500, L100.0100 ####[facility] [address] [place], [address] Chloride [Moles/Vol] 104 mmol/L Normal 98-108 [facility] Comment on above: Performed By: #### L 500.2500, L100.0100 ####[facility] [address] [place], [address] CO2 [Moles/Vol] 24.5 mmol/L Normal 21.0-32.0 [facility] Comment on above: Performed By: #### L 500.2500, L100.0100 ####[facility] [address] [place], [address] Creatinine [Mass/Vol] 1.08 mg/dL Normal 0.70-1.20 [facility] Comment on above: Performed By: #### L 500.2500, L100.0100 ####[facility] [address] [place], [address] ECRCL 57.34 ml/min Normal 50-250 [facility] Comment on above: Performed By: #### L 500.2500, L100.0100 ####[facility] [address] [place], [address] GAP 11 Normal 5-15 [facility] Comment on above: Performed By: #### L 500.2500, L100.0100 ####[facility] [address] [place], [address] GFR/1.73 sq M.predicted among non-blacks MDRD (S/P/Bld) [Vol rate/Area] 69 mL/min/{1.73_m2} Normal >60 [facility] Comment on above: Result Comment: mL/m in/1.73m2 CKD-EPI Creatinine Equation (2020) Performed By: #### L 500.2500, L100.0100 ####[facility] [address] [place], [address] Glucose [Mass/Vol] 142 mg/dL High 70-99 [facility] Comment on above: Performed By: #### L 500.2500, L100.0100 ####[facility] [address] [place], [address] Potassium [Moles/Vol] 4.3 mmol/L Normal 3.3-5.1 [facility] Comment on above: Performed By: #### L 500.2500, L100.0100 ####[facility] [address] [place], [address] Sodium [Moles/Vol] 140 mmol/L Normal 133-145 [facility] Comment on above: Performed By: #### L 500.2500, L100.0100 ####[facility] [address] [place], [address] Urea nitrogen [Mass/Vol] 25 mg/dL High 4-19 [facility] Comment on above: Performed By: #### L 500.2500, L100.0100 ####[facility] [address] [place], [address] Bedside Glucoseon 05-24-2024 FINGERSTICK GLU 197 mg/dL High 74-106 [facility] Comment on above: Result Comment: NIKI GEMENT OF PATIENT CARE PER NURSING PROTOCOL Performed By: #### L 501.080 ####[facility] [address] [place], [address] FINGERSTICK GLU 79 mg/dL Normal 74-106 [facility] Comment on above: Result Comment: NIKI GEMENT OF PATIENT CARE PER NURSING PROTOCOL Performed By: #### L 501.080 ####[facility] [address] [place], [address] FINGERSTICK GLU 61 mg/dL Low 74-106 [facility] Comment on above: Result Comment: NIKI GEMENT OF PATIENT CARE PER NURSING PROTOCOL Performed By: #### L 501.080 ####[facility] [address] [place], [address] FINGERSTICK GLU 149 mg/dL High 74-106 [facility] Comment on above: Result Comment: NIKI GEMENT OF PATIENT CARE PER NURSING PROTOCOL Performed By: #### L 501.080 ####[facility] [address] [place], [address] FINGERSTICK GLU 159 mg/dL High 74-106 [facility] Comment on above: Result Comment: NIKI GEMENT OF PATIENT CARE PER NURSING PROTOCOL Performed By: #### L 501.080 ####[facility] [address] [place], [address] FINGERSTICK GLU 104 mg/dL Normal 74-106 [facility] Comment on above: Result Comment: NIKI GEMENT OF PATIENT CARE PER NURSING PROTOCOL Performed By: #### L 501.080 ####[facility] [address] [place], [address] CBC W/Diff, Automatedon 04-0 2-2025 Absolute Lymph 0.97 X10 3/uL Normal 0.83-4.51 [facility] Comment on above: Performed By: #### L 500.2500, L100.0100 ####[facility] [address] [place], [address] Absolute Neut 4.3 X10 3/uL Normal 2.0-7.7 [facility] Comment on above: Performed By: #### L 500.2500, L100.0100 ####[facility] [address] [place], [address] Basophils/100 WBC (Bld) 1.0 % Normal 0-1 [facility] Comment on above: Performed By: #### L 500.2500, L100.0100 ####[facility] [address] [place], [address] Eosinophils/100 WBC (Bld) 2.7 % Normal 0-5 [facility] Comment on above: Performed By: #### L 500.2500, L100.0100 ####[facility] [address] [place], [address] Erythrocyte distribution width (RBC) [Ratio] 14.9 % High 11.6-14.6 [facility] Comment on above: Performed By: #### L 500.2500, L100.0100 ####[facility] [address] [place], [address] Hematocrit (Bld) [Volume fraction] 31.9 % Low 40-54 [facility] Comment on above: Performed By: #### L 500.2500, L100.0100 ####[facility] [address] [place], [address] Hemoglobin (Bld) [Mass/Vol] 9.8 g/dL Low 13.0-16.5 [facility] Comment on above: Performed By: #### L 500.2500, L100.0100 ####[facility] [address] [place], [address] IG% 1.600 High 0.0-0.9 [facility] Comment on above: Result Comment: IG% - Immature Granulocytes (promyelocytes, myelocytes andmetamyelocytes) > 1% indicates that a LEFT SHIFT is Present. Performed By: #### L 500.2500, L100.0100 ####[facility] [address] [place], [address] Lymphocytes/100 WBC (Bld) 15.4 % Low 19-41 [facility] Comment on above: Performed By: #### L 500.2500, L100.0100 ####[facility] [address] [place], [address] MCH (RBC) [Entitic mass] 27.5 pg Normal 27.0-32.0 [facility] Comment on above: Performed By: #### L 500.2500, L100.0100 ####[facility] [address] [place], [address] MCHC (RBC) [Mass/Vol] 30.7 g/dL Low 32-36 [facility] Comment on above: Performed By: #### L 500.2500, L100.0100 ####[facility] [address] [place], [address] MCV (RBC) [Entitic vol] 89.6 fL Normal 80-94 [facility] [facility] Comment on above: Performed By: #### L 500.2500, L100.0100 ####[facility] [address] [place], [address] Monocytes/100 WBC (Bld) 11.1 % High 0-10 [facility] Comment on above: Performed By: #### L 500.2500, L100.0100 ####[facility] [address] [place], [address] Neutrophils/100 WBC (Bld) 68.2 % Normal 47-70 [facility] Comment on above: Performed By: #### L 500.2500, L100.0100 ####[facility] [address] [place], [address] Nucleated RBC (Bld) [#/Vol] 0 10*3/uL Normal 0-5 [facility] Comment on above: Performed By: #### L 500.2500, L100.0100 ####[facility] [address] [place], [address] Platelet mean volume (Bld) [Entitic vol] 8.9 fL Normal 6.2-12.0 [facility] Comment on above: Performed By: #### L 500.2500, L100.0100 ####[facility] [address] [place], [address] Platelets (Bld) [#/Vol] 357 10*3/uL Normal 150-450 [facility] Comment on above: Performed By: #### L 500.2500, L100.0100 ####[facility] [address] [place], [address] RBC (Bld) [#/Vol] 3.56 10*6/uL Low 4.6-6.2 [facility] Comment on above: Performed By: #### L 500.2500, L100.0100 ####[facility] [address] [place], [address] RDW SD 49.1 fl High 35.1-43.9 [facility] Comment on above: Performed By: #### L 500.2500, L100.0100 ####[facility] [address] [place], [address] WBC (Bld) [#/Vol] 6.3 10*3/uL Normal 4.4-11.0 [facility] Comment on above: Performed By: #### L 500.2500, L100.0100 ####[facility] [address] [place], [address] Bedside Glucoseon 05-23-2024 FINGERSTICK GLU 101 mg/dL Normal 74-106 [facility] Comment on above: Result Comment: NIKI GEMENT OF PATIENT CARE PER NURSING PROTOCOL Performed By: #### L 501.080 ####[facility] [address] [place], [address] FINGERSTICK GLU 177 mg/dL High 74-106 [facility] Comment on above: Result Comment: NIKI GEMENT OF PATIENT CARE PER NURSING PROTOCOL Performed By: #### L 501.080 ####[facility] [address] [place], [address] FINGERSTICK GLU 139 mg/dL High 74-106 [facility] Comment on above: Result Comment: NIKI GEMENT OF PATIENT CARE PER NURSING PROTOCOL Performed By: #### L 501.080 ####[facility] [address] [place], [address] [facility] deOrdered By: Fredis Moon on 05-23-2024 Bedside Glucose (Misc Panel) 139 mg/dL High 74-106 [facility] Comment on above: MANAGEMENT OF PATIEN T CARE PER NURSING PROTOCOL HH, Hemoglobin AND Hematocri ton 05-23-2024 Hematocrit (Bld) [Volume fraction] 30.6 % Low 40-54 [facility] Comment on above: Performed By: #### L 100.0600 ####[facility] [address] [place], [address] Hemoglobin (Bld) [Mass/Vol] 9.5 g/dL Low 13.0-16.5 [facility] Comment on above: Performed By: #### L 100.0600 ####[facility] [address] [place], [address] Hematocrit Auto (Bld) [Volum e fraction]Ordered By: Fredis Moon on 05-23-2024 Hematocrit (Bld) [Volume fraction] 30.6 % Low 40-54 [facility] Hemoglobin measurementOrdere d By: Fredis Moon on 05-23-2024 Hemoglobin (Bld) [Mass/Vol] 9.5 g/dL Low 13.0-16.5 [facility] Lower GI hemoglobin IA Ql (S tl)Ordered By: Fredis Moon on 05-23-2024 Stool Occult Blood (KERLINE) [facility] Stool Occult Blood iFOBon STOB Normal [facility] Comment on above: Performed By: #### M 100.7900 ####[facility] [address] [place], [address] Stool gastrointestinal hemog lobin detection by immunologic methodOrdered By: Fredis Moon on 05-23-2024 Lower GI hemoglobin IA Ql (Stl) [facility] Bedside Glucoseon 05-22-2024 FINGERSTICK GLU 135 mg/dL High 74-106 [facility] Comment on above: Result Comment: NIKI GEMENT OF PATIENT CARE PER NURSING PROTOCOL Performed By: #### L 501.080 ####[facility] [address] [place], [address] FINGERSTICK GLU 192 mg/dL High [address] [place] [address] Comment on above: Result Comment: NIKI GEMENT OF PATIENT CARE PER NURSING PROTOCOL Performed By: #### L 501.080 ####[facility] [address] [place], [address] FINGERSTICK GLU 98 mg/dL Normal -106 [facility] Comment on above: Result Comment: NIKI GEMENT OF PATIENT CARE PER NURSING PROTOCOL Performed By: #### L 501.080 ####[facility] [address] [place], [address] FINGERSTICK GLU 152 mg/dL High [address] [place] [address] Comment on above: Result Comment: NIKI GEMENT OF PATIENT CARE PER NURSING PROTOCOL Performed By: #### L 501.080 ####[facility] [address] [place], [address] Bedside Glucoseon 05-21-2024 FINGERSTICK GLU 151 mg/dL High [address] [place] [address] Comment on above: Result Comment: NIKI GEMENT OF PATIENT CARE PER NURSING PROTOCOL Performed By: #### L 501.080 ####[facility] [address] [place], [address] FINGERSTICK GLU 243 mg/dL High [address] [place] [address] Comment on above: Result Comment: NIKI GEMENT OF PATIENT CARE PER NURSING PROTOCOL Performed By: #### L 501.080 ####[facility] [address] [place], [address] FINGERSTICK GLU 270 mg/dL High [address] [place] [address] Comment on above: Result Comment: NIKI GEMENT OF PATIENT CARE PER NURSING PROTOCOL Performed By: #### L 501.080 ####[facility] [address] [place], [address] FINGERSTICK GLU 173 mg/dL High 74-106 [facility] Comment on above: Result Comment: NIKI GEMENT OF PATIENT CARE PER NURSING PROTOCOL Performed By: #### L 501.080 ####[facility] [address] [place], [address] Bedside Glucoseon 05-20-2024 FINGERSTICK GLU 179 mg/dL High 74-106 [facility] Comment on above: Result Comment: NIKI GEMENT OF PATIENT CARE PER NURSING PROTOCOL Performed By: #### L 501.080 ####[facility] [address] [place], [address] FINGERSTICK GLU 69 mg/dL Low 74-106 [facility] Comment on above: Result Comment: NIKI GEMENT OF PATIENT CARE PER NURSING PROTOCOL Performed By: #### L 501.080 ####[facility] [address] [place], [address] FINGERSTICK GLU 195 mg/dL High -106 [facility] Comment on above: Result Comment: NIKI GEMENT OF PATIENT CARE PER NURSING PROTOCOL Performed By: #### L 501.080 ####[facility] [address] [place], [address] FINGERSTICK GLU 130 mg/dL High 74-106 [facility] Comment on above: Result Comment: NIKI GEMENT OF PATIENT CARE PER NURSING PROTOCOL Performed By: #### L 501.080 ####[facility] [address] [place], [address] Bedside Glucoseon 05-19-2024 FINGERSTICK GLU 167 mg/dL High -[address] [place] [address] Comment on above: Result Comment: NIKI GEMENT OF PATIENT CARE PER NURSING PROTOCOL Performed By: #### L 501.080 ####[facility] [address] [place], [address] FINGERSTICK GLU 158 mg/dL High 74-106 [facility] Comment on above: Result Comment: NIKI GEMENT OF PATIENT CARE PER NURSING PROTOCOL Performed By: #### L 501.080 ####[facility] [address] [place], [address] FINGERSTICK GLU 178 mg/dL High 74-106 [facility] Comment on above: Result Comment: NIKI GEMENT OF PATIENT CARE PER NURSING PROTOCOL Performed By: #### L 501.080 ####[facility] [address] [place], [address] FINGERSTICK GLU 215 mg/dL High 74-106 [facility] Comment on above: Result Comment: NIKI GEMENT OF PATIENT CARE PER NURSING PROTOCOL Performed By: #### L 501.080 ####[facility] [address] [place], [address] Bedside Glucoseon 05-18-2024 FINGERSTICK GLU 87 mg/dL Normal 74-106 [facility] Comment on above: Result Comment: NIKI GEMENT OF PATIENT CARE PER NURSING PROTOCOL Performed By: #### L 501.080 ####[facility] [address] [place], [address] FINGERSTICK GLU 79 mg/dL Normal 74-106 [facility] Comment on above: Result Comment: NIKI GEMENT OF PATIENT CARE PER NURSING PROTOCOL Performed By: #### L 501.080 ####[facility] [address] [place], [address] FINGERSTICK GLU 164 mg/dL High 74-106 [facility] Comment on above: Result Comment: NIKI GEMENT OF PATIENT CARE PER NURSING PROTOCOL Performed By: #### L 501.080 ####[facility] [address] [place], [address] FINGERSTICK GLU 231 mg/dL High 74-106 [facility] Comment on above: Result Comment: NIKI GEMENT OF PATIENT CARE PER NURSING PROTOCOL Performed By: #### L 501.080 ####[facility] [address] [place], [address] FINGERSTICK GLU 202 mg/dL High 74-106 [facility] Comment on above: Result Comment: NIKI ROMERO OF PATIENT CARE PER NURSING PROTOCOL Performed By: #### L 501.080 ####[facility] [address] [place], [address] HH, Hemoglobin AND Hematocri ton 05-18-2024 Hematocrit (Bld) [Volume fraction] 29.5 % Low 40-54 [facility] Comment on above: Order Comment: 24 HO URS POST TRANSFUSION Performed By: #### L 100.0600 ####[facility] [address] [place], [address] Hemoglobin (Bld) [Mass/Vol] 9.9 g/dL Low 13.0-16.5 [facility] Comment on above: Order Comment: 24 HO URS POST TRANSFUSION Performed By: #### L 100.0600 ####[facility] [address] [place], [address] Venous Duplex US - Andrew Extre mon 05-18-2024 Venous Duplex US - Andrew Extrem Normal [facility] Venous duplex ultrasound rep ortOrdered By: Daysi Monterroso on 05-18-2024 US Vein [facility] [address] [place] [address] Venous Duplex US - Andrew Extrem 05/18/24 1013 MR#: [id number] Acct: [id number] Name: Joaquin THRASHER Rep #:[id number] 3 : 1940 84 From: Daysi Clayton Attending Dr: Dr. Fredis Moon MD Status: REG CLI Ordering Dr: Fredis Moon MD Date: Location: CVS Sex: M C Admitted: Reason For Study Reason For Study: BLE Swelling RIGHT LEFT GSV is normal. Unable to visualize GSV ankle to knee. Anechoic, CFV is compressible, spontaneous, phasic, competent dilated and NONCOMPRESSIBLE area noted in area of GSV and demonstrates normal augmentation. from knee to prox thigh. Pt is S/P CABG with harvest FV is compressible, spontaneous, phasic, competent of Lt GSV noted. and demonstrates normal augmentation. CFV is compressible, spontaneous, phasic, competent, POP V is compressible, spontaneous, phasic, competent and demonstrates normal augmentation. and demonstrates normal augmentation. FV is compressible, spontaneous, phasic, competent T/P Trunk is compressible. and demonstrates normal augmentation. PTV is compressible. POP V is compressible, spontaneous, phasic, competent RT PerV is compressible. and demonstrates normal augmentation. Procedure T/P Trunk is compressible. This is a venous duplex using B-mode, color flow and PTV is compressible. spectral Doppler. LT PerV is compressible. Exam performed portable in patient room. The exam was diagnostic. A preliminary report was called and/or faxed to TCU RN. VL/Venous Duplex US - Andrew Extrem Interpretation Summary Anechoic, dilated and NONCOMPRESSIBLE area noted in area of GSV from knee to proximal thigh; seroma vs hematoma. Deep veins of the bilateral lower extremities are patent and compressible segmentally. There is no evidence of bilateral lower extremity deep vein thrombosis. The right great saphenous vein appears patent and compressible segmentally. Ordering Physician: Fredis Moon Chi Referring Physician: Fredis Moon Chi Performed By: Td Walsh, T 05/18/24 1811 Date _ Daysi Monterroso MD CC: Dr. Fredis Moon MD ~ Date Dictated: 05/18/24 1013 Date Transcribed: 05/18/24 1811 Sales Clerk: Signed [facility] Work Phone: [phone] 05-17-2024 [id number] Patient Choice Patient Name: FARHANA THRASHER Date of : 1940 Normal [facility] Absolute neutrophil countOrd ered By: Fredis Moon on 05-17-2024 Neutrophils (Bld) [#/Vol] 6.9 10*3/uL 2.0-7.7 [facility] Anion gap in Serum or Plasma Ordered By: Fredis Moon on 05-17-2024 Anion gap [Moles/Vol] 12 mmol/L 5-15 [facility] BRCon 05-17-2024 RC Normal [facility] Comment on above: Result Comment: [id number] OP RC TRANSFUSED 05/17/24 [id number] OP RC TRANSFUSED 05/17/24 1042 Performed By: #### B TS, [facility] ####[facility] [address] [place], [address] BUN/creatinine ratioOrdered By: Fredis Moon on 05-17-2024 Urea nitrogen/Creatinine [Mass ratio] 23.7 mg/mg [facility]20 [facility] Basic Metabolic Profile (BMP )on 05-17-2024 BUN/CRE 23.7 RATIO High [address] [place] [address] Comment on above: Performed By: #### L 500.2500, L100.0100 ####[facility] [address] [place], [address] Calcium [Mass/Vol] 8.7 mg/dL Normal 7.6-11.0 [facility] Comment on above: Performed By: #### L 500.2500, L100.0100 ####[facility] [address] [place], [address] Chloride [Moles/Vol] 103 mmol/L Normal 98-108 [facility] Comment on above: Performed By: #### L 500.2500, L100.0100 ####[facility] [address] [place], [address] CO2 [Moles/Vol] 23.3 mmol/L Normal 21.0-32.0 [facility] Comment on above: Performed By: #### L 500.2500, L100.0100 ####[facility] [address] [place], [address] Creatinine [Mass/Vol] 1.10 mg/dL Normal 0.70-1.20 [facility] Comment on above: Performed By: #### L 500.2500, L100.0100 ####[facility] [address] [place], [address] ECRCL 56.65 ml/min Normal 50-250 [facility] Comment on above: Performed By: #### L 500.2500, L100.0100 ####[facility] [address] [place], [address] GAP 12 Normal 5-15 [facility] Comment on above: Performed By: #### L 500.2500, L100.0100 ####[facility] [address] [place], [address] GFR/1.73 sq M.predicted among non-blacks MDRD (S/P/Bld) [Vol rate/Area] 67 mL/min/{1.73_m2} Normal >60 [facility] Comment on above: Result Comment: mL/m in/1.73m2 CKD-EPI Creatinine Equation (2020) Performed By: #### L 500.2500, L100.0100 ####[facility] [address] [place], [address] Glucose [Mass/Vol] 262 mg/dL High 70-99 [facility] Comment on above: Performed By: #### L 500.2500, L100.0100 ####[facility] [address] [place], [address] Potassium [Moles/Vol] 4.1 mmol/L Normal 3.3-5.1 [facility] Comment on above: Performed By: #### L 500.2500, L100.0100 ####[facility] [address] [place], [address] Sodium [Moles/Vol] 138 mmol/L Normal 133-145 [facility] Comment on above: Performed By: #### L 500.2500, L100.0100 ####[facility] [address] [place], [address] Urea nitrogen [Mass/Vol] 26 mg/dL High 4-19 [facility] Comment on above: Performed By: #### L 500.2500, L100.0100 ####[facility] [address] [place], [address] Bedside Glucoseon 05-17-2024 FINGERSTICK GLU 205 mg/dL High 74-106 [facility] Comment on above: Result Comment: NIKI GEMENT OF PATIENT CARE PER NURSING PROTOCOL Performed By: #### L 501.080 ####[facility] [address] [place], [address] FINGERSTICK GLU 351 mg/dL High 74-106 [facility] Comment on above: Result Comment: NIKI GEMENT OF PATIENT CARE PER NURSING PROTOCOL Performed By: #### L 501.080 ####[facility] [address] [place], [address] FINGERSTICK GLU 291 mg/dL High 74-106 [facility] Comment on above: Result Comment: NIKI GEMENT OF PATIENT CARE PER NURSING PROTOCOL Performed By: #### L 501.080 ####[facility] [address] [place], [address] FINGERSTICK GLU 225 mg/dL High 74-106 [facility] Comment on above: Result Comment: NIKI GEMENT OF PATIENT CARE PER NURSING PROTOCOL Performed By: #### L 501.080 ####[facility] [address] [place], [address] Blood band neutrophil count as percentage of total leukocytesOrdered By: Fredis Moon on 05-17-2024 Band form neutrophils/100 WBC (Bld) 1 % 0-5 [facility] Blood basophils/100 leukocyt esOrdered By: Fredis Perryok on 05-17-2024 Basophils/100 WBC (Bld) 1 % 0-1 [facility] Blood eosinophils/100 leukoc ytesOrdered By: Fredis Red on 05-17-2024 Eosinophils/100 WBC (Bld) 0 % 0-5 [facility] Blood lymphocytes/100 leukoc ytesOrdered By: Fredis Perryok on 05-17-2024 Lymphocytes/100 WBC (Bld) 8 % Low 19-41 [facility] Blood metamyelocytes/100 carl kocytesOrdered By: Fredis Perryok on 05-17-2024 Metamyelocytes/100 WBC (Bld) 2 % High 0-1 [facility] Blood monocytes/100 leukocyt esOrdered By: Fredis Perryok on 05-17-2024 Monocytes/100 WBC (Bld) 10 % 0-10 [facility] Blood polychromasia detectio n by light microscopyOrdered By: Fredis Perryok on 05-17-2024 Polychromasia LM Ql (Bld) 1+ [facility] Blood segmented neutrophils/ 100 leukocytesOrdered By: Fredis Perryok on 05-17-2024 Segmented neutrophils/100 WBC (Bld) 78 % High 47-70 [facility] Carbon dioxide, total [Moles /volume] in Central venous bloodOrdered By: Fredis Moon on 05-17-2024 CO2 [Moles/Vol] 23.3 mmol/L 21.0-32.0 [facility] Cells counted Molgen (Bld/Ti ss) [#]Ordered By: Fredis Mono on 05-17-2024 Differential Total Cells Counted 100 MANUAL DIFF [facility] Chloride assayOrdered By: Mir Moon on 05-17-2024 Chloride [Moles/Vol] 103 mmol/L 98-108 [facility] Erythrocyte distribution wid th ratioOrdered By: Fredis Moon on 05-17-2024 Erythrocyte distribution width (RBC) [Ratio] 14.9 % High 11.6-14.6 [facility] Erythrocyte distribution wid th standard deviationOrdered By: Fredis Moon on 05-17-2024 Erythrocyte distribution width (RBC) [Entitic vol] 47.3 fL High 35.1-43.9 [facility] Estimation of creatinine melissa aranceOrdered By: Fredis Moon on 05-17-2024 Estimated Creatinine Clearance Calc 56.65 ml/min 50-250 [facility] GFR/1.73 sq M.predicted [place] g non-blacks MDRD (S/P/Bld) [Vol rate/Area]Ordered By: Fredis Moon on 05-17-2024 Estimated GFR (MDRD) Non-Af Amer 67 >60 [facility] Comment on above: mL/min/1.73m2 CKD-EP I Creatinine Equation (2020) Lymphocytes Auto (Unsp spec) [#/Vol]Ordered By: Fredis Moon 05-17-2024 Lymphocytes (Bld) [#/Vol] 0.69 10*3/uL Low 0.83-4.51 [facility] MCV (mean corpuscular volume ) determinationOrdered By: Fredis Moon 05-17-2024 MCV (RBC) [Entitic vol] 87.6 fL 80-94 [facility] Mean corpuscular hemoglobin (MCH) determinationOrdered By: Fredis Moon 05-17-2024 MCH (RBC) [Entitic mass] 27.4 pg 27.0-32.0 [facility] Mean corpuscular hemoglobin concentration (MCHC) determinationOrdered By: Fredis Moon 05-17-2024 MCHC (RBC) [Mass/Vol] 31.3 g/dL Low 32-36 [facility] Mean platelet volume determi nationOrdered By: Fredis Moon 05-17-2024 Platelet mean volume (Bld) [Entitic vol] 9.3 fL 6.2-12.0 [facility] Neutrophil percentageOrdered By: Fredis Moon 05-17-2024 Neutrophils (%) (Auto) Not Reportable [facility] Pathologist review Jones (Unsp spec) [Interp]Ordered By: Fredis Moon on 05-17-2024 Differential Pathologist's Review Ana Lilia griggs [facility] Differential Pathologist's Review Reviewed [facility] Comment on above: Previous reported re sult: Ana Lilia griggs Edited by: ALTAF on 06/06/24:1507SEE REPORT IN PATIENT'S EMR AMENDED REPORT 06/06/241506 PATH REV previously reported as: June indu Platelet countOrdered By: Mir Moon on 05-17-2024 Platelets (Bld) [#/Vol] 278 10*3/uL 150-450 [facility] Platelet estimateOrdered By: Fredis Moon on 05-17-2024 Platelets LM Ql (Bld) [facility] Platelets LM Ql (Bld)Ordered By: Fredis Moon on 05-17-2024 Platelet Estimate A [facility] Polychromasia LM Ql (Bld)Ord ered By: Frdeis Moon on 05-17-2024 Polychromasia 1+ [facility] Potassium (Unsp spec) [Mass/ Vol]Ordered By: Fredis Moon on 05-17-2024 Potassium [Moles/Vol] 4.1 mmol/L 3.3-5.1 [facility] RBC Auto (Bld) [#/Vol]Ordere d By: Fredis Moon on 05-17-2024 RBC (Bld) [#/Vol] 2.59 10*6/uL Low 4.6-6.2 [facility] Review by pathologistOrdered By: Fredis Moon on 05-17-2024 Pathologist review Jones (Unsp spec) [Interp] Reviewed [facility] Comment on above: Previous reported re sult: Ana Lilia griggs Edited by: ALTAF on 06/06/24:1507SEE REPORT IN PATIENT'S EMR AMENDED REPORT 06/06/24 150 PATH REV previously reported as: June indu Segmented neutrophils/100 WB C (Bld)Ordered By: Fredis Moon on 05-17-2024 Neutrophils/100 WBC (Bld) 78 % High 47-70 [facility] Serum creatinine measurement (mass/volume)Ordered By: Fredis Moon on 05-17-2024 Creatinine [Mass/Vol] 1.10 mg/dL 0.70-1.20 [facility] Serum glucose measurement (m ass/volume)Ordered By: Fredis Moon on 05-17-2024 Glucose [Mass/Vol] 262 mg/dL High 70-99 [facility] Serum or plasma calcium mt urement (mass/volume)Ordered By: Fredis Moon on 05-17-2024 Calcium [Mass/Vol] 8.7 mg/dL 7.6-11.0 [facility] Serum or plasma urea nitroge n measurement (mass/volume)Ordered By: Fredis Moon on 05-17-2024 Urea nitrogen [Mass/Vol] 26 mg/dL High 4-19 [facility] Sodium levelOrdered By: Fredis Moon on 05-17-2024 Sodium [Moles/Vol] 138 mmol/L 133-145 [facility] Total cell countOrdered By: Fredis Moon on 05-17-2024 Cells counted Molgen (Bld/Tiss) [#] 100 MANUAL DIFF [facility] Type AND Screenon 05-17-2024 Ab SCREEN GEL PENDING Normal [facility] Comment on above: Order Comment: CMV N EG? NNumber of units to transfuse: 2Reason for Ordering Blood: AcuteAre the blood/blood products to be transfused? YIs the patient having/had surgery? YWhvinay Macias Performed By: #### B ELIN, [facility] ####[facility] [id number] [place], [address] ABO and Rh group Nom (Bld) Blood group O Rh(D) positive Normal [facility] Comment on above: Order Comment: CMV N EG? NNumber of units to transfuse: 2Reason for Ordering Blood: AcuteAre the blood/blood products to be transfused? YIs the patient having/had surgery? YWhen ReadyNY Performed By: #### B ELIN, [facility] ####[facility] [id number] [facility] [place], [place], [id number] White blood cell (WBC) count Ordered By: Fredis Moon on 05-17-2024 WBC (Bld) [#/Vol] 8.7 10*3/uL 4.4-11.0 [facility] 30on 05-16-2024 30 Problem: Knowledge Deficit Goal: Patient/family/caregi luz demonstrates understanding of disease process, treatment plan, medications, and discharge instructions Outcome: Progressing Problem: Potential for Compromised Skin Integrity Goal: Skin Integrity is Maintained or Improved Outcome: Progressing Goal: Nutritional status is improving Outcome: Progressing Problem: Urinary Incontinence Goal: Perineal skin integrity is maintained or improved Outcome: Progressing Problem: Problem Interventions Goal: Assess Nutritional Intake Outcome: Progressing Problem: Potential for Falls Goal: I will remain free of falls Outcome: Progressing Normal [facility] [id number] 05-16-2024 [id number] Next Site of Care Admission Date: 05/10/2024 05:34 AM Patient Name: FARHANA THRASHER Location: [address]/[facility] A Date of : 1940 ------- Placement Information ------- Referral Type:[facility] - New Referral ID:[id number] Provider Name:[facility] Acute Rehab Address 1:[address] Address 2: City:[place] Selection Factors:Patient/Famil y Choice State:[facility] [phone] [facility]. Requested discharge order, completed LAURA and transportation be set up. [facility] [phone] SW arranged [facility] t [facility]. TCC, RN, Facility, Corporate Claims Examiner, Pt and Pt's spouse notified. [facility] BASIC METABOLIC PANELon 03-2 Anion gap [Moles/Vol] 8 mmol/L Normal 3-13 [facility] Comment on above: Performed By: #### L AB103, [id number] ####Export Freight Clerk: DANIELLA PEREZ ([phone])[address] Calcium [Mass/Vol] 8.9 mg/dL Normal 8.8-10.0 [facility] Comment on above: Performed By: #### L AB103, [id number] ####Export Freight Clerk: DANIELLA PEREZ ([phone])[address] Chloride [Moles/Vol] 105 mmol/L Normal 98-107 [facility] Comment on above: Performed By: #### L AB103, LAB15 ####Export Freight Clerk: DANIELLA PEREZ ([phone])[address] CO2 [Moles/Vol] 25 mmol/L Normal 23-31 [facility] Comment on above: Performed By: #### L AB103, [id number] ####Export Freight Clerk: DANIELLA [id number])[facility] [place] [address] [place] Creatinine [Mass/Vol] 1.04 mg/dL Normal 0.72-1.25 [facility] Comment on above: Performed By: #### L AB103, LAB15 ####Export Freight Clerk: DANIELLA PEREZ ([phone])[facility] [place] [address] [place] GLOMERULAR FILTRATION RATE ML/MIN/1.73 SQ M.PREDICTED 71.7 mL/min/1.73m*2 Normal >60.0 [facility] Comment on above: Result Comment: Calc ulation based on the Chronic Kidney Disease Epidemiology Collaboration (CKD-EPI) equation refit without adjustment for race Performed By: #### L AB103, LAB15 ####Export Freight Clerk: DANIELLA PEREZ ([phone])[facility] [place] [address] [place] Glucose [Mass/Vol] 206 mg/dL High 82-115 [facility] Comment on above: Performed By: #### L AB103, LAB15 ####Export Freight Clerk: DANIELLA PEREZ ([phone])[facility] ([facility])[address] [place] [address] [place] Potassium [Moles/Vol] 3.9 mmol/L Normal 3.5-5.1 [facility] Comment on above: Result Comment: [facility] potassium values may be up to 0.5 mmol/L lower than serum values. Performed By: #### L AB103, LAB15 ####Export Freight Clerk: DANIELLA PEREZ ([phone])[facility] [place] [address] [place] Sodium [Moles/Vol] 138 mmol/L Normal 136-145 [facility] Comment on above: Performed By: #### L AB103, LAB15 ####Export Freight Clerk: DANIELLA PEREZ ([phone])[facility] [place] [address] [place] Urea nitrogen [Mass/Vol] 27 mg/dL High 9-23 [facility] Comment on above: Performed By: #### L AB103, LAB15 ####Export Freight Clerk: DANIELLA PEREZ ([phone])[facility] ([facility])[address] [place] [address] Basic metabolic 1998 panelon 05-16-2024 Anion gap [Moles/Vol] 8 mmol/L 3 - 13 mmol/L [facility] Calcium [Mass/Vol] 8.9 mg/dL 8.8 - 10. 0 mg/dL [facility] Chloride [Moles/Vol] 105 mmol/L 98 - 10 7 mmol/L [facility] CO2 [Moles/Vol] 25 mmol/L 23 - 31 mmol/L [facility] Creatinine [Mass/Vol] 1.04 mg/dL 0.72 - 1.25 mg/dL [facility] GFR/1.73 sq M.predicted (S/P/Bld) [Vol rate/Area] 71.7 mL/min - PINF [facility] Glucose [Mass/Vol] 206 mg/dL High 82 - 115 mg/dL [facility] Interpretation and review of laboratory results Abnormal [facility] Potassium [Moles/Vol] 3.9 mmol/L 3.5 - 5.1 mmol/L [facility] Sodium [Moles/Vol] 138 mmol/L 136 - 145 mmol/L [facility] Urea nitrogen [Mass/Vol] 27 mg/dL High 9 - 23 mg/dL [facility] Bedside Glucoseon 05-16-2024 FINGERSTICK GLU 260 mg/dL High 74-106 [facility] Comment on above: Result Comment: NIKI BOYERENT OF PATIENT CARE PER NURSING PROTOCOL Performed By: #### L 501.080 ####[facility] [id number] [place], [place], [phone] CBC (HEMOGRAM)on 05-16-2024 Erythrocyte distribution width (RBC) [Ratio] 14.7 % Normal 11.5-15.0 [facility] Comment on above: Performed By: #### L [id number] ####Export Freight Clerk: DANIELLA PEREZ ([phone])[facility] ([facility])[address] [place] [address] Hematocrit (Bld) [Volume fraction] 23.7 % Low 40.0-52.0 [facility] Comment on above: Performed By: #### L AB294 ####Export Freight Clerk: DANIELLA PEREZ ([id number])[facility])[address] [place] [address] Hemoglobin (Bld) [Mass/Vol] 7.4 g/dL Low 13.0-18.0 [facility] Comment on above: Performed By: #### L [id number] ####Export Freight Clerk: DANIELLA PEREZ ([phone])[facility] ([facility])[address] [place] [address] MCH (RBC) [Entitic mass] 27.6 pg Normal 26.0-34.0 [facility] Comment on above: Performed By: #### L [id number] ####Export Freight Clerk: DANIELLA PEREZ ([phone])[facility])[address] [place] [address] MCHC 31.2 % Normal 30.5-36.0 [facility] Comment on above: Performed By: #### L [id number] ####Export Freight Clerk: DANIELLA PEREZ ([phone])[facility] ([facility])[address] [place] [address] MCV (RBC) [Entitic vol] 88.4 fL Normal 77.0-99.0 [facility] Comment on above: Performed By: #### L [id number] ####Export Freight Clerk: DANIELLA PEREZ ([phone])[facility])[address] [place] [address] Platelet mean volume (Bld) [Entitic vol] 9.4 fL Normal 9.0-12.7 [facility] Comment on above: Performed By: #### L [id number] ####Export Freight Clerk: DANIELLA PEREZ ([phone])[facility])[address] [place] [address] Platelets (Bld) [#/Vol] 274 10*3/uL Normal 140-440 [facility] Comment on above: Performed By: #### L AB294 ####Export Freight Clerk: DANIELLA PEREZ ([id number])[facility] ([facility])[address] [place] [address] RBC (Bld) [#/Vol] 2.68 10*6/uL Low 4.40-5.90 [facility] Comment on above: Performed By: #### L [id number] ####Export Freight Clerk: DANIELLA PEREZ ([id number])[facility] ([facility])[address] [place] [address] WBC (Bld) [#/Vol] 8.7 10*3/uL Normal 3.6-10.7 [facility] Comment on above: Performed By: #### L [id number] ####Export Freight Clerk: DANIELLA PEREZ ([phone])[facility] ([facility])[address] [place] [address] CBC panel Auto (Bld)on 05-16 Erythrocyte distribution width (RBC) [Ratio] 14.7 % 11.5 - 15.0 % [facility] Hematocrit (Bld) [Volume fraction] 23.7 % Low 40.0 - 52.0 % [facility] Hemoglobin (Bld) [Mass/Vol] 7.4 g/dL Low 13.0 - 18.0 g/dL [facility] Interpretation and review of laboratory results Abnormal [facility] MCH (RBC) [Entitic mass] 27.6 pg 26. 0 - 34.0 pg [facility] MCHC (RBC) [Mass/Vol] 31.2 % 30.5 - 36.0 % [facility] MCV (RBC) [Entitic vol] 88.4 fL 77.0 - 99.0 fL [facility] Platelet mean volume (Bld) [Entitic vol] 9.4 fL 9.0 - 12.7 fL [facility] Platelets (Bld) [#/Vol] 274 10*3/uL 140 - 440 10*3/uL [facility] RBC (Bld) [#/Vol] 2.68 10*6/uL Low 4.40 - 5.9 0 10*6/uL [facility] WBC (Bld) [#/Vol] 8.7 10*3/uL 3.6 - 10.7 10*3/uL [facility] - Chemistry and C hemistry - challengeon 05-16-2024 Glucose [Mass/Vol] 224 mg/dL High 70 - 100 mg/dL [facility] Magnesium [Mass/Vol] 2.2 mg/dL 1.6 - 2 .6 mg/dL [facility] MAGNESIUMon 05-16-2024 Magnesium [Mass/Vol] 2.2 mg/dL Normal 1.6-2.6 [facility] Comment on above: Result Comment: JEAN CARLOS Nuñez COMMENTS: Higher values can be expected in females during menses. Performed By: #### L AB103, LAB15 ####Export Freight Clerk: DANIELLA PEREZ ([id number])[address] Magnesium [Mass/Vol]on 05-16 Interpretation and review of laboratory results Normal [facility] No Panel Informationon 05-16 Interpretation and review of laboratory results Abnormal [facility] Nursing Noteon 05-16-2024 Nursing Note [facility] Progress Noteon 05-16-2024 Progress Note Cardiothoracic Surgery Note PATIENT NAME: Farhana Thrasher : 1940 (84 y.o.) TODAY'S DATE: 05/16/2024 Objective: BP (!) 130/49 (BP Location: Left arm, Patient Position: Lying) Pulse 66 Temp 36.1 ?C (97 ?F) (Temporal) Resp 17 Ht 5' 7 (1.702 m) Wt 208 lb 3.2 oz (94.4 kg) SpO2 100% BMI 32.61 kg/m? Epicardial pacing wire cut without difficulty per protocol. Patient and nurse educated on possible complications. Patient tolerated well. Will continue to monitor. [facility] Progress Note PHYSICAL THERAPY [facility] Treatment Note Name/MRN: Marcus Thrasher ([id number]) Date of : 1940 Age: 84 y.o. Room/Bed: T1-116/T1-116 A Discharge Recommendation: IP Rehab Other: owns a cane Prior Level of Function Prior Level of ADL Function: Required Assist Prior Level of Mobility: Independent; Device: Straight Cane and bilat AFO Prior Level of Transfers: Independent Assessment Pt min assist for transfer and gait. BLE swelling with increase pain, RN notified. Continues to require cues for sternal precautions with transfers. He is below his baseline. Rec rehab upon discharge to maximize independence. Subjective Pt in chair, agreeable to PT. Continues to c/o andrew leg pain. Pain: [place] Pain Ratin = Hurts even more Pain Location: BLE Medical Precautions: No active isolations Proper PPE donned/doffed in accordance with facility standards. Fall Risk: [place] Fall Risk Score: 85 (High Risk) Precautions/Restricti ons: Sternal Precautions: No Pushing, No Pulling, No Lifting Greater Than 10 lbs and No lifting greater than 10 lbs. Ok for modified UE precautions using Keep Your Move in the Tube technique Fall Precautions Overall Cognitive Status: WNL Overall Orientation Status: Oriented x4 Family/Caregiver Present: none Objective Transfers/Mobility Sit to stand: Min Assist Stand to sit: Min Assist X2 attempts before successful transfer. Cues for sternal precautions. Device(s) used: None Ambulation Ambulation 1 Assistive device(s) used: Rollator Assist level: Min Assist Distance (ft): 500ft, 1 standing rest break Quality of gait: slow jose, decrease step length, double stance time. Balance During Session: Posture: standing with rollator, anterior lean, wide MARIBEL, min assist initially for balance and able to progress to SBA. Exercises Exercises Upper Extremity: P&C ex #1-9 all x 10 reps each Comments: Educated pt on proper technique on I.S.. Encouraged P&C exercises on his own time. Other exercises Other exercises?: Yes Other exercises 1: I.S. x 10 reps, 1500mL Plan Continue acute PT per plan of care. Safety/Education Safety Safety Devices in place: call light within reach, left in chair, and no alarms engaged upon entry Restraints: No Education Education Given To: patient Education Provided: PT Goals, Gait Training, Plan of Care, Home Exercise Program, Precautions, Transfer Training, Fall Prevention Education, Discharge Recommendations, Benefits of Increasing Activity, and Breathing Techniques Education Method: Verbal Barriers to Learning: None Education Outcome: Verbalized Understanding Outcome Measures AM-PAC AM-PAC Inpatient Mobility Raw Score (No Stairs) : 12 JH-HLM JH-HLM Score: Walked 250 ft or more (i.e. several laps on unit) Goals Patient Stated Goal: To go to rehab Encounter Problems Encounter Problems (Active) Cardiac Patient will perform bed mobility with modified independence in order to improve independence and prepare for out of bed mobility. (Not Addressed) Start: 05/11/24 Expected End: 06/08/24 Patient will complete sit to stand transfer with modified independence to straight cane and rolling walker in order to improve safety and prepare for out of bed mobility. (Progressing) Start: 05/11/24 Expected End: 06/08/24 Patient will ambulate 250 feet or ambulate 5 minutes with supervision with RPE of 14 or lower. (Progressing) Start: 05/11/24 Expected End: 06/08/24 Patient will ascend and descend 3 # stairs with supervision rail for balance only. (Not Addressed) Start: 05/11/24 Expected End: 06/08/24 Patient will be independent with P&C exercises. (Progressing) Start: 05/11/24 Expected End: 06/08/24 Patient will be independent with managing secretions and home walking program. (Progressing) Start: 05/11/24 Expected End: 06/08/24 Therapy Time Individual Co-treatment Time In 0813 Time Out 0841 Minutes 28 Timed Code Treatment Minutes: 28 Minutes (tp; gait) Abi Rios PTA [facility] Progress Note Department of Internal Medicine Division of Endocrinology, Diabetes, & Metabolism Endocrinology Note Patient Name: Farhana Thrasher : 1940 AGE: 84 y.o. Room/Bed: T1116/T1116 A Admission Date: 05/10/2024 Visit Date: 05/16/2024 Reason for Endocrine Consult: post op heart Provider/Team Requesting Consult: CTS PCP: KELSEY MOON MD Outpt Flow Match Sofa Cutter: No ASSESSMENT: DM2 with hyperglycemia and buttermaker helper insulin Stress hyperglycemia CABGX3 HLD/CAD Obesity Body mass index is 32.61 kg/m?. PLAN: Glucose readings are still elevated as of this morning Increase dose of Lantus 32 units daily Increase Humalog to 14//14 units before meals Continue Humalog medium scale ICU goal <180 GMF goal <150 POCT BG ACHS Hypoglycemia management per protocol Carb controlled diet ANTICIPATED ENDOCRINE HOME GOING RECOMMENDATIONS: Optimized for Discharge from Endocrine standpoint: yes Home Going Endocrine Rx Recommendations-- Continue lantus and humalog to [facility] Once dc to home resume- Soliqua pen home dose Jardiance home dose Metformin home dose Outpt Follow Up-- PCP SUBJECTIVE/HPI: CHIEF COMPLAINT: No chief complaint on file. S/p CABGx3 Noted hx of DM2 in chart review Glucose readings elevated this morning We will adjust insulin He is up awake alert in chair-vss ra Working with PT No family in room Ate breakfast Denies nausea vomiting abdominal pain States he will discharge to rehab Discussed diabetes management for home at length Spoke with nursing Type of DM: 2 Onset of DM: Over 40 years Home DM Medication Regimen: per chart-Soliqua pen 100/33 at 45 units daily am, jardiance 25 mg po daily, metformin 1 g po bid DM control (last A1c/glucose data): Lab Results Component Value Date HGBA1C 7.4 (H) 05/04/2024 Glucose Date/Time Value Ref Range Status 05/16/2024 07:07 AM 224 (H) 70 - 100 mg/dL Final 05/15/2024 09:12 PM 266 (H) 70 - 100 mg/dL Final 05/15/2024 04:46 PM 167 (H) 70 - 100 mg/dL Final 05/15/2024 11:48 AM 208 (H) 70 - 100 mg/dL Final 05/15/2024 06:57 AM 244 (H) 70 - 100 mg/dL Final 05/14/2024 09:20 PM 197 (H) 70 - 100 mg/dL Final Review of Systems All other systems reviewed and are negative. ROS negative except for those mentioned in HPI. OBJECTIVE: Vitals: 05/15/24 2356 05/16/24 0013 05/16/24 0414 05/16/24 0700 BP: 135/56 (!) 130/49 BP Location: Left arm Left arm Patient Position: Lying Lying Pulse: 77 77 66 Resp: 17 19 17 Temp: 36.1 ?C (97 ?F) 36.1 ?C (97 ?F) TempSrc: Temporal Temporal SpO2: 100% 100% Weight: 208 lb 3.2 oz (94.4 kg) Height: Physical Exam Vitals and nursing note reviewed. Constitutional: General: He is awake. He is not in acute distress. Appearance: He is obese. He is not toxic-appearing. Interventions: Nasal cannula in place. HENT: Mouth/Throat: Mouth: Mucous membranes are moist. Cardiovascular: Rate and Rhythm: Normal rate. Pulmonary: Effort: No respiratory distress. Abdominal: Tenderness: There is no guarding. Skin: General: Skin is warm and dry. Coloration: Skin is pale. Comments: Intact incision Neurological: Mental Status: He is alert and oriented to person, place, and time. Mental status is at baseline. Psychiatric: Mood and Affect: Mood normal. Behavior: Behavior normal. Behavior is cooperative. 24 hour intake/output: Intake/Output Summary (Last 24 hours) at 05/16/2024 0801 Last data filed at 05/16/2024 0030 Gross per 24 hour Intake 740 ml Output -- Net 740 ml Diet: Adult diet Regular; 5 carb choices (75 gm/meal) Medications (as per EMR): HomeMeds: Current Outpatient Medications Medication Instructions amLODIPine (Norvasc) 5 MG tablet Every evening aspirin 81 mg, Every evening atorvastatin (LIPITOR) 10 mg, Nightly Calcium Carb-Cholecalciferol (CALCIUM 500 + D3 PO) 1 tablet, Daily carbidopa-levodopa (Sinemet) 25-100 MG tablet 1 tablet, 3 times daily empagliflozin (JARDIANCE) 25 mg, Daily insulin glargine-lixisenatide (Soliqua) 100-33 UNT-MCG/ML pen 45 Units, Daily before breakfast metFORMIN (GLUCOPHAGE) 1,000 mg, 2 times daily with meals metoprolol succinate XL (TOPROL-XL) 12.5 mg, Daily Miconazole Nitrate 2 % ointment PRN mupirocin (Bactroban) 2 % ointment Apply liberal amount per nostril the night before surgery and then again the morning of surgery Propylene Glycol (LUBRICANT EYE DROP OP) PRN triamcinolone (Kenalog) 0.1 % ointment 1 Application, Daily PRN Vibegron 75 MG tablet 1 tablet, Daily Scheduled Meds:acetaminophen, 1,000 mg, Oral, q8h aspirin, 325 mg, Oral, Daily atorvastatin, 40 mg, Oral, Nightly carbidopa-levodopa, 1 tablet, Oral, TID chlorhexidine, , Topical, Daily chlorhexidine, 15 mL, Mouth/Throat, BID furosemide, 40 mg, IntraVENous, Daily heparin, 5,000 Units, SubCUTAneous, BID insulin glargine, 28 Units, SubCUTAneous, q AM insulin lispro, 0-12 Units, SubCUTAneous, (more content not included)... Normal [facility] XR CHEST 1 VIEWon 05-16-2024 XR CHEST 1 VIEW Patient Name[facility] 1940 [id number] Exam Date/Time: 05/16/2024 05:22 Procedure: XR CHEST 1 VIEW Ordering Provider: HANDY KYLE Reason For Exam: Shortness of breath CHEST X-RAY CLINICAL INDICATION: Shortness of breath TECHNIQUE: AP COMPARISON: 05/15/2024 FINDINGS: Quality: Exam quality: EKG leads obscure small portions of the chest. Lines: None Cardiomediastinal Silhouette: The heart demonstrates normal size. Calcification of the thoracic aorta is noted. Postsurgical changes compatible with median sternotomy and cardiac surgery. Lungs: Mild interval improvement of bibasilar atelectasis. No focal consolidation. No evidence of pleural effusion or pneumothorax. Soft tissue: The soft tissue structures appear unremarkable. Bones: Degenerative change of the thoracic spine is noted. IMPRESSION: See findings. Report Dictated on Electronically Signed By: Kvng Martin MD Electronically Signed Date/Time: 05/16/2024 5:34 AM EDT Normal [facility] XR Chest Single viewon 05-16 [facility] Radiology Study observation (narrative) [facility] francia BASIC METABOLIC PANELon 04-23 Anion gap [Moles/Vol] 8 mmol/L Normal 3-13 [facility] Comment on above: Performed By: #### L AB15, [id number] ####Export Freight Clerk: DANIELLA PEREZ ([id number])[facility] ([facility])[address] [place] [address] Calcium [Mass/Vol] 8.9 mg/dL Normal 8.8-10.0 [facility] Comment on above: Performed By: #### L AB15, [id number] ####Export Freight Clerk: DANIELLA PEREZ ([phone])[facility] [place] [address] Chloride [Moles/Vol] 108 mmol/L High 98-107 [facility] Comment on above: Performed By: #### L AB15, [id number] ####Export Freight Clerk: DANIELLA PEREZ ([phone])[facility] ([facility])[address] [place] [address] CO2 [Moles/Vol] 24 mmol/L Normal 23-31 [facility] Comment on above: Performed By: #### L AB15, [id number] ####Export Freight Clerk: DANIELLA PEREZ ([phone])[facility] ([facility])[address] [place] [address] Creatinine [Mass/Vol] 0.97 mg/dL Normal 0.72-1.25 [facility] Comment on above: Performed By: #### L AB15, [id number] ####Export Freight Clerk: DANIELLA PEREZ ([phone])[facility])[address] [place] [address] [place] GLOMERULAR FILTRATION RATE ML/MIN/1.73 SQ M.PREDICTED 77.9 mL/min/1.73m*2 Normal >60.0 [facility] Comment on above: Result Comment: Calc ulation based on the Chronic Kidney Disease Epidemiology Collaboration (CKD-EPI) equation refit without adjustment for race Performed By: #### L AB15, [id number] ####Export Freight Clerk: DANIELLA PEREZ ([id number])[facility])[address] [place] [address] [place] Glucose [Mass/Vol] 189 mg/dL High 82-115 [facility] Comment on above: Performed By: #### L AB15, [id number] ####Export Freight Clerk: DANIELLA [id number])[facility] ([facility])[address] [place] [address] Potassium [Moles/Vol] 3.8 mmol/L Normal 3.5-5.1 [facility] Comment on above: Result Comment: [facility] potassium values may be up to 0.5 mmol/L lower than serum values. Performed By: #### L AB15, [id number] ####Export Freight Clerk: DANIELLA PEREZ ([id number])[facility] ([facility])[address] [place] [address] Sodium [Moles/Vol] 140 mmol/L Normal 136-145 [facility] Comment on above: Performed By: #### L AB15, [id number] ####Export Freight Clerk: DANIELLA PEREZ ([phone])[facility] ([facility])[address] [place] [address] Urea nitrogen [Mass/Vol] 25 mg/dL High 9-23 [facility] Comment on above: Performed By: #### L AB15, [id number] ####Export Freight Clerk: DANIELLA PEREZ ([id number])[facility] [place] [address] Basic metabolic 1998 panelon 05-15-2024 Anion gap [Moles/Vol] 8 mmol/L 3 - 13 mmol/L [facility] Calcium [Mass/Vol] 8.9 mg/dL 8.8 - 10. 0 mg/dL [facility] Chloride [Moles/Vol] 108 mmol/L High 98 - 10 7 mmol/L [facility] CO2 [Moles/Vol] 24 mmol/L 23 - 31 mmol/L [facility] Creatinine [Mass/Vol] 0.97 mg/dL 0.72 - 1.25 mg/dL [facility] GFR/1.73 sq M.predicted (S/P/Bld) [Vol rate/Area] 77.9 mL/min - PINF [facility] Glucose [Mass/Vol] 189 mg/dL High 82 - 115 mg/dL [facility] Interpretation and review of laboratory results Abnormal [facility] Potassium [Moles/Vol] 3.8 mmol/L 3.5 - 5.1 mmol/L [facility] Sodium [Moles/Vol] 140 mmol/L 136 - 145 mmol/L [facility] Urea nitrogen [Mass/Vol] 25 mg/dL High 9 - 23 mg/dL [facility] CBC (HEMOGRAM)on 05-15-2024 Erythrocyte distribution width (RBC) [Ratio] 14.6 % Normal 11.5-15.0 [facility] Comment on above: Performed By: #### L [id number] ####Export Freight Clerk: DANIELLA PEREZ ([phone])[facility])[address] [place] [address] Hematocrit (Bld) [Volume fraction] 23.4 % Low 40.0-52.0 [facility] Comment on above: Performed By: #### L [id number] ####Export Freight Clerk: DANIELLA PEREZ ([phone])[address] Hemoglobin (Bld) [Mass/Vol] 7.3 g/dL Low 13.0-18.0 [facility] Comment on above: Performed By: #### L [id number] ####Export Freight Clerk: DANIELLA PEREZ ([phone])[facility])[address] [place] [address] MCH (RBC) [Entitic mass] 27.1 pg Normal 26.0-34.0 [facility] Comment on above: Performed By: #### L [id number] ####Export Freight Clerk: DANIELLA PEREZ ([id number])[facility])[address] [place] [address] MCHC 31.2 % Normal 30.5-36.0 [facility] Comment on above: Performed By: #### L [id number] ####Export Freight Clerk: DANIELLA PEREZ ([phone])[address] MCV (RBC) [Entitic vol] 87.0 fL Normal 77.0-99.0 [facility] Comment on above: Performed By: #### L [id number] ####Export Freight Clerk: DANIELLA PEREZ ([id number])[facility])[address] [place] [address] Platelet mean volume (Bld) [Entitic vol] 9.2 fL Normal 9.0-12.7 [facility] Comment on above: Performed By: #### L [id number] ####Export Freight Clerk: DANIELLA PEREZ ([id number])[facility])[address] [place] [address] Platelets (Bld) [#/Vol] 218 10*3/uL Normal 140-440 [facility] Comment on above: Performed By: #### L [id number] ####Export Freight Clerk: DANIELLA PEREZ ([id number])[facility])[address] [place] [address] RBC (Bld) [#/Vol] 2.69 10*6/uL Low 4.40-5.90 [facility] Comment on above: Performed By: #### L [id number] ####Export Freight Clerk: DANIELLA PEREZ ([id number])[facility])[address] [place] [address] WBC (Bld) [#/Vol] 7.5 10*3/uL Normal 3.6-10.7 [facility] Comment on above: Performed By: #### L [id number] ####Export Freight Clerk: DANIELLA PEREZ ([id number])[facility])[address] [place] [address] CBC panel Auto (Bld)on 05-15 Erythrocyte distribution width (RBC) [Ratio] 14.6 % 11.5 - 15.0 % [facility] Hematocrit (Bld) [Volume fraction] 23.4 % Low 40.0 - 52.0 % [facility] Hemoglobin (Bld) [Mass/Vol] 7.3 g/dL Low 13.0 - 18.0 g/dL [facility] Interpretation and review of laboratory results Abnormal [facility] MCH (RBC) [Entitic mass] 27.1 pg 26. 0 - 34.0 pg [facility] MCHC (RBC) [Mass/Vol] 31.2 % 30.5 - 36.0 % [facility] MCV (RBC) [Entitic vol] 87 fL 77.0 - 99.0 fL [facility] Platelet mean volume (Bld) [Entitic vol] 9.2 fL 9.0 - 12.7 fL [facility] Platelets (Bld) [#/Vol] 218 10*3/uL 140 - 440 10*3/uL [facility] RBC (Bld) [#/Vol] 2.69 10*6/uL Low 4.40 - 5.9 0 10*6/uL [facility] WBC (Bld) [#/Vol] 7.5 10*3/uL 3.6 - 10.7 10*3/uL [facility] ECG 12-LEADon 05-15-2024 ECG 12-LEAD IMPRESSION: SINUS RHYTHM Incomplete RBBB and LAFB Nonspecific T abnormalities, lateral leads Electronically Signed On 05-15-2024 13:14:24 EDT by Holden Bowles Normal [facility] Laboratory - Chemistry and C hemistry - challengeon 05-15-2024 Glucose [Mass/Vol] 266 mg/dL High 70 - 100 mg/dL [facility] Glucose [Mass/Vol] 167 mg/dL High 70 - 100 mg/dL [facility] Glucose [Mass/Vol] 208 mg/dL High 70 - 100 mg/dL [facility] Glucose [Mass/Vol] 244 mg/dL High 70 - 100 mg/dL [facility] Magnesium [Mass/Vol] 2.2 mg/dL 1.6 - 2 .6 mg/dL [facility] Glucose [Mass/Vol] 197 mg/dL High 70 - 100 mg/dL [facility] MAGNESIUMon 05-15-2024 Magnesium [Mass/Vol] 2.2 mg/dL Normal 1.6-2.6 [facility] Comment on above: Result Comment: JEAN CARLOS Nuñez COMMENTS: Higher values can be expected in females during menses. Performed By: #### L AB15, [id number] ####Export Freight Clerk: DANIELLA PEREZ ([id number])[facility] ([address] Magnesium [Mass/Vol]on 05-15 Interpretation and review of laboratory results Normal [facility] No Panel Informationon 05-15 Interpretation and review of laboratory results Abnormal [facility] Interpretation and review of laboratory results Abnormal [facility] CV EPIPHANY [facility] Interpretation and review of laboratory results Abnormal [facility] Interpretation and review of laboratory results Abnormal [facility] Interpretation and review of laboratory results Abnormal [facility] No Panel InformationOrdered By: Holden Bowles on 05-15-[address] [facility] Work Phone: NE Interval 170 ms [facility] Work Phone: QRS Craig [facility] [facility] Work Phone: QRSD Interval 118 ms [employer] Work Phone: QT Interval 391 ms [facility] Work Phone: QTC Interval 461 ms [facility] Work Phone: T Wave Craig 64 degrees [employer] Work Phone: [employer] Work Phone: Progress Noteon 05-15-2024 Progress Note PHYSICAL THERAPY [facility] Treatment Note Name/MRN: Marcus Thrasher ([id number]) Date of : 1940 Age: 84 y.o. Room/Bed: T1-116/T1-116 A Discharge Recommendation: IP Rehab Other: owns a cane Prior Level of Function Prior Level of ADL Function: Required Assist Prior Level of Mobility: Independent; Device: Straight Cane and bilat AFO Prior Level of Transfers: Independent Assessment Pt min assist for transfer, gait and balance. Cues needed for sternal precautions during transfers. 2/3 recall for precautions. Educated and reviewed P&C exercises. Pt is below is baseline. Rec rehab upon discharge. Subjective Pt in restroom sitting on toilet, pulled call light. Agreeable to PT. Noted swelling in LLE, per this has increase since yesterday, firm to touch, painful, RN notified. Pain: chronic andrew shoulder pain. LLE pain. Medical Precautions: No active isolations Proper PPE donned/doffed in accordance with facility standards. Fall Risk: [place] Fall Risk Score: 85 (High Risk) Precautions/Restricti ons: Sternal Precautions: No Pushing, No Pulling, No Lifting Greater Than 10 lbs and No lifting greater than 10 lbs. Ok for modified UE precautions using Keep Your Move in the Tube technique Fall Precautions Overall Cognitive Status: WNL Overall Orientation Status: Oriented x4 Family/Caregiver Present: spouse Objective Transfers/Mobility Sit to stand: Min Assist Stand to sit: Min Assist X 2 attempts before successful transfers (x 2 reps, toilet, chair). Cues for sternal precautions. Device(s) used: Rollator Ambulation Ambulation 1 Assistive device(s) used: Rollator Assist level: Min Assist Distance (ft): 250ft x 2 Quality of gait: slow jose, cues for pursed lip breathing. Balance During Session: Posture: standing with rollator, anterior lean, wide MARIBEL, min assist for balance. Dynamic standing for hand hygiene, min assist for balance due to postural sway. Exercises Exercises Upper Extremity: P&C ex #1-9 all x 10 reps each Other exercises Other exercises?: No Plan Continue acute PT per plan of care. Safety/Education Safety Safety Devices in place: call light within reach, left in chair, patient at risk for falls, nurse notified, and no alarms engaged upon entry Restraints: No Education Education Given To: patient Education Provided: PT Goals, Gait Training, Plan of Care, Home Exercise Program, Precautions, Transfer Training, Fall Prevention Education, Discharge Recommendations, Benefits of Increasing Activity, and Breathing Techniques Education Method: Verbal Barriers to Learning: None Education Outcome: Verbalized Understanding Outcome Measures AM-PAC AM-PAC Inpatient Mobility Raw Score (No Stairs) : 13 JH-HLM JH-HLM Score: Walked 250 ft or more (i.e. several laps on unit) Goals Patient Stated Goal: To go to rehab Encounter Problems Encounter Problems (Active) Cardiac Patient will perform bed mobility with modified independence in order to improve independence and prepare for out of bed mobility. (Not Addressed) Start: 05/11/24 Expected End: 06/08/24 Patient will complete sit to stand transfer with modified independence to straight cane and rolling walker in order to improve safety and prepare for out of bed mobility. (Progressing) Start: 05/11/24 Expected End: 06/08/24 Patient will ambulate 250 feet or ambulate 5 minutes with supervision with RPE of 14 or lower. (Progressing) Start: 05/11/24 Expected End: 06/08/24 Patient will ascend and descend 3 # stairs with supervision rail for balance only. (Not Addressed) Start: 05/11/24 Expected End: 06/08/24 Patient will be independent with P&C exercises. (Progressing) Start: 05/11/24 Expected End: 06/08/24 Patient will be independent with managing secretions and home walking program. (Not Addressed) Start: 05/11/24 Expected End: 06/08/24 Therapy Time Individual Co-treatment Time In 0854 Time Out 0921 Minutes 27 Timed Code Treatment Minutes: 27 Minutes (tp; gait) Abi Rios PTA [facility] Progress Note - Attestation signed by Catalina Hunt MD at 05/15/2024 4:48 PM I independently performed a history and physical examination of the patient. I have reviewed the patient's chart including pertinent history, medications, labs, radiology, consult/progress notes, and other reports. I reviewed the resident/JULIO CESAR's note, agree with the documented findings and plan of care (with modifications noted if any), and discussed the management plan. BG not at goal with BG mostly 180-300s. Pt on Lantus/Humalog. On carb controlled diet. No significant complaints except for lower extremity edema. Denies any shortness of breath or chest pain. Noted GFR 78 BP 129/57 (BP Location: Left arm, Patient Position: Sitting) Pulse 74 Temp 36.4 ?C (97.5 ?F) (Temporal) Resp 18 Ht 5' 7 (1.702 m) Wt 217 lb 11.2 oz (98.7 kg) SpO2 100% BMI 34.10 kg/m? awake, alert, not in distress, RRR, chest incision intact, abdomen soft, non-tender, significant bipedal edema, normal mood and affect. Dx: Type 2 DM with cardiac complications, on long-term insulin Type 2 DM with hyperglycemia CAD s/p CABG HLP/HTN/Obesity Body mass index is 34.1 kg/m?. Anemia Plan: -will continue Lantus 28 units every morning and increase Humalog to 12 units with meals plus moderate dose sliding scale -continue blood glucose monitoring -discussed postop hyperglycemia management and goals of therapy -Continue carb controlled diet Adult diet Regular; 5 carb choices (75 gm/meal) -patient will be able to return to home DM regimen with Soliqua, Jardiance, and metformin -follow up with PCP Total time 35 minutes which include review of records, counseling, management, and coordination of care as documented in note. Department of Internal Medicine Division of Endocrinology, Diabetes, & Metabolism Endocrinology Note Patient Name: Farhana Thrasher : 1940 AGE: 84 y.o. Room/Bed: [facility]/[address] Admission Date: 05/10/2024 Visit Date: 05/15/2024 Reason for Endocrine Consult: post op heart Provider/Team Requesting Consult: CTS PCP: KELSEY MOON MD Outpt Flow Match Sofa Cutter: No ASSESSMENT: DM2 with hyperglycemia and buttermaker helper insulin Stress hyperglycemia CABGX3 HLD/CAD Obesity Body mass index is 34.1 kg/m?. PLAN: Glucose readings are still elevated today Continue increased dose of Lantus 28 units daily Increase Humalog to 12/12/12 units before meals Continue Humalog medium scale ICU goal <180 GMF goal <150 POCT BG ACHS Hypoglycemia management per protocol Carb controlled diet ANTICIPATED ENDOCRINE HOME GOING RECOMMENDATIONS: Optimized for Discharge from Endocrine standpoint: yes Home Going Endocrine Rx Recommendations-- Soliqua pen home dose Jardiance home dose Metformin home dose Outpt Follow Up-- PCP SUBJECTIVE/HPI: CHIEF COMPLAINT: No chief complaint on file. S/p CABGx3 Noted hx of DM2 in chart review Glucose readings elevated this morning Noted Lantus was increased for today will also adjust his Humalog Patient states he is eating well, had dinner at 630 last night Ate breakfast eggs and russell this morning VSS RA up in chair Denies late snacking Denies nausea vomiting abdominal pain Family in room States he will discharge to rehab Discussed diabetes management for home at length Spoke with nursing Type of DM: 2 Onset of DM: Over 40 years Home DM Medication Regimen: per chart-Soliqua pen 100/33 at 45 units daily am, jardiance 25 mg po daily, metformin 1 g po bid DM control (last A1c/glucose data): Lab Results Component Value Date HGBA1C 7.4 (H) 05/04/2024 Glucose Date/Time Value Ref Range Status 05/15/2024 06:57 AM 244 (H) 70 - 100 mg/dL Final 05/14/2024 09:20 PM 197 (H) 70 - 100 mg/dL Final 05/14/2024 04:52 PM 150 (H) 70 - 100 mg/dL Final 05/14/2024 11:16 AM 356 (H) 70 - 100 mg/dL Final 05/14/2024 08:32 AM 225 (H) 70 - 100 mg/dL Final 05/13/2024 09:24 PM 285 (H) 70 - 100 mg/dL Final Review of Systems All other systems reviewed and are negative. ROS negative except for those mentioned in HPI. OBJECTIVE: Vitals: 05/15/24 0000 05/15/24 0400 05/15/24 0606 05/15/24 0800 BP: 126/51 (!) 162/44 (!) 104/46 BP Location: Right arm Left arm Right arm Patient Position: Lying Lying Sitting Pulse: 59 79 83 Resp: 18 18 18 Temp: 36.1 ?C (97 ?F) 36.1 ?C (97 ?F) 36.4 ?C (97.6 ?F) TempSrc: Temporal Temporal Temporal SpO2: 100% 100% 100% Weight: 217 lb 11.2 oz (98.7 kg) Height: Physical Exam Vitals and nursing note reviewed. Constitutional: General: He is awake. He is not in acute distress. Appearance: He is obese. He is not toxic-appearing. Interventions: Nasal cannula in place. HENT: Mouth/Throat: Mouth: Mucous membranes are moist. Cardiovascular: Rate and Rhy (more content not included)... Normal [facility] Vital signsOrdered By: Nicole Bowles on 05-15-2024 Heart rate 84 /min bpm [facility] Phone: XR CHEST 1 VIEWon 05-15-2024 XR CHEST 1 VIEW [facility] 1940 [id number] Exam Date/Time: 05/15/2024 05:21 Procedure: XR CHEST 1 VIEW Ordering Provider: HANDY KYLE Reason For Exam: Shortness of breath INDICATION: Shortness of breath. VIEWS: Chest portable-one image COMPARISON: 05/14/2024 FINDINGS: The trachea is midline. The cardiac silhouette is within normal limits. Median sternotomy wires are present. Bibasilar opacities are present. IMPRESSION: Bibasilar opacities with possible small pleural effusions, not significantly changed. Report Dictated on Electronically Signed By: Lina Adler MD Electronically Signed Date/Time: 05/15/2024 5:53 AM EDT Normal [facility] XR Chest Single viewon 05-15 [facility] Radiology Study observation (narrative) [facility] XR Chest Single viewOrdered By: Lina Adler on 05-15-2024 [facility] Phone: 30on 05-14-2024 30 Problem: Potential for Compromised Skin Integrity Goal: Nutritional status is improving Outcome: Progressing Problem: Knowledge Deficit Goal: Patient/family/caregi luz demonstrates understanding of disease process, treatment plan, medications, and discharge instructions Outcome: Adequate for Discharge Problem: Potential for Compromised Skin Integrity Goal: Skin Integrity is Maintained or Improved Outcome: Adequate for Discharge Problem: Urinary Incontinence Goal: Perineal skin integrity is maintained or improved Outcome: Adequate for Discharge Problem: Problem Interventions Goal: Assess Nutritional Intake Outcome: Adequate for Discharge Normal [facility] BASIC METABOLIC PANELon 04-23 Anion gap [Moles/Vol] 8 mmol/L Normal 05-04 [facility] Comment on above: Performed By: #### L AB103, [id number] ####Export Freight Clerk: DANIELLA PEREZ ([id number])[facility] ([facility] [place] [address] Calcium [Mass/Vol] 8.7 mg/dL Low 8.8-10.0 [facility] Comment on above: Performed By: #### L AB103, LAB15 ####Export Freight Clerk: DANIELLA PEREZ ([id number])[facility] [place] [address] Chloride [Moles/Vol] 107 mmol/L Normal 98-107 [facility] Comment on above: Performed By: #### L AB103, LAB15 ####Export Freight Clerk: DANIELLA PEREZ ([phone])[facility] ([facility])[address] [place] [address] CO2 [Moles/Vol] 23 mmol/L Normal 23-31 [facility] Comment on above: Performed By: #### L 103, LAB15 ####Export Freight Clerk: DANIELLA PEREZ ([id number])[facility] ([facility])[address] [place] [address] Creatinine [Mass/Vol] 1.10 mg/dL Normal 0.72-1.25 [facility] Comment on above: Performed By: #### L AB103, LAB15 ####Export Freight Clerk: DANIELLA PEREZ ([id number])[facility] ([facility])[address] [place] [address] [place] GLOMERULAR FILTRATION RATE ML/MIN/1.73 SQ M.PREDICTED 67.0 mL/min/1.73m*2 Normal >60.0 [facility] Comment on above: Result Comment: Calc ulation based on the Chronic Kidney Disease Epidemiology Collaboration (CKD-EPI) equation refit without adjustment for race Performed By: #### L AB103, LAB15 ####Export Freight Clerk: DANIELLA PEREZ ([phone])[facility] ([facility])[address] [place] [address] [place] Glucose [Mass/Vol] 196 mg/dL High 82-115 [facility] Comment on above: Performed By: #### L AB103, LAB15 ####Export Freight Clerk: DANIELLA [id number])[facility] ([facility])[address] [place] [address] Potassium [Moles/Vol] 3.8 mmol/L Normal 3.5-5.1 [facility] Comment on above: Result Comment: [facility] potassium values may be up to 0.5 mmol/L lower than serum values. Performed By: #### L AB103, LAB15 ####Export Freight Clerk: DANIELLA PEREZ ([phone])[facility] [place] [address] Sodium [Moles/Vol] 138 mmol/L Normal 136-145 [facility] Comment on above: Performed By: #### L AB103, LAB15 ####Export Freight Clerk: DANIELLA PEREZ ([id number])[facility] [place] [address] Urea nitrogen [Mass/Vol] 30 mg/dL High 9-23 [facility] Comment on above: Performed By: #### L AB103, LAB15 ####Export Freight Clerk: DANIELLA PEREZ ([phone])[facility] [place] [address] Basic metabolic 1998 panelon 05-14-2024 Anion gap [Moles/Vol] 8 mmol/L 3 - 13 mmol/L [facility] Calcium [Mass/Vol] 8.7 mg/dL Low 8.8 - 10. 0 mg/dL [facility] Chloride [Moles/Vol] 107 mmol/L 98 - 10 7 mmol/L [facility] CO2 [Moles/Vol] 23 mmol/L 23 - 31 mmol/L [facility] Creatinine [Mass/Vol] 1.1 mg/dL 0.72 - 1.25 mg/dL [facility] GFR/1.73 sq M.predicted (S/P/Bld) [Vol rate/Area] 67 mL/min - PINF [facility] Glucose [Mass/Vol] 196 mg/dL High 82 - 115 mg/dL [facility] Interpretation and review of laboratory results Abnormal [facility] Potassium [Moles/Vol] 3.8 mmol/L 3.5 - 5.1 mmol/L [facility] Sodium [Moles/Vol] 138 mmol/L 136 - 145 mmol/L [facility] Urea nitrogen [Mass/Vol] 30 mg/dL High 9 - 23 mg/dL [facility] CBC (HEMOGRAM)on 05-14-2024 Erythrocyte distribution width (RBC) [Ratio] 14.6 % Normal 11.5-15.0 [facility] Comment on above: Performed By: #### L [id number] ####Export Freight Clerk: DANIELLA PEREZ ([phone])[address] Hematocrit (Bld) [Volume fraction] 23.7 % Low 40.0-52.0 [facility] Comment on above: Performed By: #### L [id number] ####Export Freight Clerk: DANIELLA PEREZ ([phone])[address] Hemoglobin (Bld) [Mass/Vol] 7.6 g/dL Low 13.0-18.0 [facility] Comment on above: Performed By: #### L [id number] ####Export Freight Clerk: DANIELLA PEREZ ([phone])[facility])[address] [place] [address] MCH (RBC) [Entitic mass] 27.5 pg Normal 26.0-34.0 [facility] Comment on above: Performed By: #### L [id number] ####Export Freight Clerk: DANIELLA PEREZ ([id number])[address] MCHC 32.1 % Normal 30.5-36.0 [facility] Comment on above: Performed By: #### L [id number] ####Export Freight Clerk: DANIELLA PEREZ ([phone])[address] MCV (RBC) [Entitic vol] 85.9 fL Normal 77.0-99.0 [facility] Comment on above: Performed By: #### L [id number] ####Export Freight Clerk: DANIELLA PEREZ ([phone])[facility])[address] [place] [address] Platelet mean volume (Bld) [Entitic vol] 9.7 fL Normal 9.0-12.7 [facility] Comment on above: Performed By: #### L [id number] ####Export Freight Clerk: DANIELLA PEREZ ([phone])[facility])[address] [place] [address] Platelets (Bld) [#/Vol] 179 10*3/uL Normal 140-440 [facility] Comment on above: Performed By: #### L [id number] ####Export Freight Clerk: DANIELLA PEREZ ([id number])[facility])[address] [place] [address] RBC (Bld) [#/Vol] 2.76 10*6/uL Low 4.40-5.90 [facility] Comment on above: Performed By: #### L AB294 ####Export Freight Clerk: DANIELLA PEREZ ([id number])[facility])[address] [place] [address] WBC (Bld) [#/Vol] 8.5 10*3/uL Normal 3.6-10.7 [facility] Comment on above: Performed By: #### L [id number] ####Export Freight Clerk: DANIELLA PEREZ ([phone])[facility])[address] [place] [address] CBC panel Auto (Bld)on 05-14 Erythrocyte distribution width (RBC) [Ratio] 14.6 % 11.5 - 15.0 % [facility] Hematocrit (Bld) [Volume fraction] 23.7 % Low 40.0 - 52.0 % [facility] Hemoglobin (Bld) [Mass/Vol] 7.6 g/dL Low 13.0 - 18.0 g/dL [facility] Interpretation and review of laboratory results Abnormal [facility] MCH (RBC) [Entitic mass] 27.5 pg 26. 0 - 34.0 pg [facility] MCHC (RBC) [Mass/Vol] 32.1 % 30.5 - 36.0 % [facility] MCV (RBC) [Entitic vol] 85.9 fL 77.0 - 99.0 fL [facility] Platelet mean volume (Bld) [Entitic vol] 9.7 fL 9.0 - 12.7 fL [facility] Platelets (Bld) [#/Vol] 179 10*3/uL 140 - 440 10*3/uL [facility] RBC (Bld) [#/Vol] 2.76 10*6/uL Low 4.40 - 5.9 0 10*6/uL [facility] WBC (Bld) [#/Vol] 8.5 10*3/uL 3.6 - 10.7 10*3/uL [facility] Laboratory - Chemistry and C hemistry - challengeon 05-14-2024 Glucose [Mass/Vol] 150 mg/dL High 70 - 100 mg/dL [facility] Glucose [Mass/Vol] 356 mg/dL High 70 - 100 mg/dL [facility] Glucose [Mass/Vol] 225 mg/dL High 70 - 100 mg/dL [facility] Magnesium [Mass/Vol] 2.3 mg/dL 1.6 - 2 .6 mg/dL [facility] MAGNESIUMon 05-14-2024 Magnesium [Mass/Vol] 2.3 mg/dL Normal 1.6-2.6 [facility] Comment on above: Result Comment: JEAN CARLOS Nuñez COMMENTS: Higher values can be expected in females during menses. Performed By: #### L AB103, LAB15 ####Export Freight Clerk: DANIELLA PREEZ ([id number])[address] Magnesium [Mass/Vol]on 05-14 Interpretation and review of laboratory results Normal [facility] No Panel InformationOrdered By: Daniella Perez on 05-14-2024 Case Report [facility] Work Phone: Clinical Information r2mxcYLmKPUlqSRiQAz wN uwwxhZpUEPvhXXxP0Cvgi gdFJjiOS1bTB1azVhfrAP aoASpTWYmCzChf1kyu542 cUMou9hhTDLBSMdyXQWUB Fq0nGjmY07ds5F3NthlZ4 xyZWQwXGdyZWVuMFxibHV yGDd8LJMikWGfavMiCmVv FXEugRRgwDF8ISRvHG4cv zzwARnsAQtkTEBhpvY4RS WipQDyP4DcRIUaLI6gymr qRNC2AEgfXMLuSUM7XdDt MEMiz5Eadjo9GlRwsTKqE FxwbGFpblxmczIwXGNmMS HITTVgYNTapj4qSWG9WWL ydGVyeSBkaXNlYXNlKVxj ZjAgIFxwYXJ9 [facility] Work Phone: Disclaimer s6nuqNAdLNUygPBlNdCe M DQmYYEmw5owMFXidIRgMt EwMzNcZnRuYmpcdWMxXGR eXrEfp9pyw369gUWan0gd EKTvVvM0tSBoIFQwS38jE MULX754RSExZQfex9xvh3 JtWBJxxLPhj9G5QYLLUAg jYBPXKEa9uXvlV16xb1J6 JzmbZ8vdVEHbZLMjW0HoK K7qVXJbSfr7WCB1LPV0OO DkZGGwS0TeZT8rXFJfnQH gVSx5d6wbxKfaYACvRPX2 x8qzOMbquhQqIK5vmh6xz Qa0a7dxnlFiVOYiEXQlhI FXQBSjU2WmpWkpHe9mrPp 2wKhlVgwxORB7Afu4VW1d ww02ume7pAbnKPYdwdbdA bA6OVemVCXifskzWEx1RE jsAHEbePI8OQWsdUZzV9O yHJTwOX4nuxn3OUX8IGao ZIAtGlG7PQOisUJlXLKvv UlnIYpfd620MMK5JkVsBE 6bX5Maq3M9kF7ybXLuFCF xhRHfCtPaVPBbhg7suFPz OVrko4SjZVP5ivY4wFTsx GCoMUYeCP97Kwymd5EnUb leGRX4LHEewuNyc1Niz7o gFxJyesFeD9wlG6BbQZVb UIKpYNTpBqZreqYmu5Alz 2FaxAKxjKx9e3adVWKqZH LfiMtet4frUGE7SKJcU4H 7aWUuh0vvHAakJVJweTS7 amG2TPGaxIXaI2XhuM3kA ZIhTL4hhrp3t0nuDVA6FH koMVIaWhL1siA7VMVlgWE sSZQeeDoeUAluz828CMS1 ZhWzJIAyv9ViE9BopQjtP 43doJyyU70dWNUngHnzqY 2wtKeysJ2vXoMqLzBqLHn xbFxwbGFpblxmMVxmczE2 QMefkpllZSVgJKkuD9kxY jHnGSPtiTycFGvxe5SlDF QkXDHrJNRvNFamB4mimK1 plpaqCWbfRKBgpForp0pi WjVqvDM5IC7gtkEsBJAmv VhxxpE0kjKpoVxorA7aoQ 3thFraqD8rgYKumAS6xmc sIGluIHNpdHUgaHlicmlk xDllyIgjfxikvO0lMNS1u AOiWHC5gXRlZKTpDZMfBB AxfV28wc5mvBUwomTfH2J wC9GmwYXvgTdnZlyjsULm pVHfWq5cuGNmRZ8xLOOly DNeN8SzVX1cFMIsyxjhSX IgVGhlIHVzZSBvZiBvbmU sh0UvnX3mQSEtTUUkVP98 jdHofcS0sRCaWEAhheOyu GVzdHMgaXMgcmVndWxhdG VkJYFpLKHdTFFuGOs3uYX hu7YfG9ariQOkiuYjF8En dRGyAFMNEQ8aWZeus0Jwl VKglJPul9HnNDUgTBCsaP 1uINJrUR4kLZUlZGzhGIC mzmAwje6mgaZiDYXtUIBy S9VxsfptcCrtmtZmISLwj l3ieaUsQGU5BWYnQRVjiE cejWRqgAAwSOCoesE4c2D cGOIuw2SrS4AhuEUxADPz oEEtEKT5w8YccF1wWQwom XRgATLwIP3fcIZpRIYnGW NsZWFyZWQgYnkgdGhlIFV YPWCbe3TpAA2uTQShsOmd FKVfpI3iu8BcHYYaf46hB EZEQSkuIFRoZSBGREEgaG FzIGRldGVybWluZWQgdGh ooOVqcVCoPNIiUGWnXS0o VUExljGcaAIzw0FeoZQkj lDrp5HwpcCrKEJnDFR7Zx BccGFyXHBhciBBbGwgaW1 wfV3bf0HfuU9vODnvhqSq sCDjZq1svZQbSC3bUAGhp mFmZmluIGVtYmVkZGVkIH Ujn4P3AM9oLJPfrn8tsil cjIBwuK9urBLzfmCgDK9f NT1kV9N6lGMeGTAbhsLrc 4evAUp1tTNmEKNhkIBepS HgEnkgSCV9YKNmEAL2atO dfwDjGXHneMybsQT6wNWz YQHfHVKbTDHtFW78B5Mum 9PvP0nkUC76VUHiKXXhQT HwplRib0eiRTKse8mcEOW nfARbU6GjBTUujSMggkkg LjUaOVW8NPYjOJT6eHDtM QHoB1JogMAqcCOgkK12LH 1stAW8NP1oLZQ8XTdrxV6 iPlHOaF67rs3hiZX0c1Vj CQ3cQ1LvUISov7R8jxYqD CQaPS8bdCOuGQHjIQTvuI lkYXRlZCBvbiBkZWNhbGN eRrqbAVJ3uLLdwXVjYsNN JWY8oKPxNIUqz3FvCPWhB RTtibNmcnPiPAHdZYC1aI JuUZGtjQJep01tU6w5EM1 crOiwURFmjFEnNVLbq8Am oDCuxTc1sTHhMzRiXEzkP XZxFWxdiZi4eBU3KA5wDH HzC7VoX0lgrJKuMGBpMRA llJTgxx9igAXcjA== [facility] Work Phone: Gross Description i6couKEwRFNfnBLyCTtf N cjphuQxAZZthTMgG0Ptju hvEGhoMM6zPE2iuYwjdFT btCEjJSCcBqOgk9eoy764 iQTjy7cpRYVJOHbiZOBKI Tq1kTpyD71qf9M1WcbkF3 8zjPNbRUO2WAVwPQVswBL mBRMdGAN9DJJngKInD5pv UKUkXU8lnuzfIHhjMIjqH VQicVI5PXHduXBtK2NtRN WhYAlzSVKevfr0AiNzQj1 vdGVyeTcyMFxwYXJkXHBs VImwBSCbDwZnQkMiGXh0C RHwjF6eBj6vyYWfoF9vxT SpVYelNWLnPR4fEGS1FJM qE8SqrGujqvucaSAjV22l f20babdaWTJ0ALV6LiOxd wXcoChwHMF3aNlmLXSxY6 AvVPQbjqFns92qAT9eXFl koVdbmy11hAw9TYIiLMnl gVNvSQCvv90kwGY8fNEdd WUgdGhhdCBtZWFzdXJlID MdIlM4KPKfLQIhfFrsl1u 1cAAusxReh9BvfDgcVIXv ZHMgYmVpbmcgYmlmdXJjY HTbTDDmumPrfUptSA72tI GbNS6wEMN8blApAVDdXkH 9WPHkOQLioB7jXVCnQEKn vYZggM9zkxJpxuYzUHK2G CbatQOlkRJqpjVeDU89mH RepIkov1KpxYl1cIVkQJg cZP8dNMLoXOShKAC0AN6d XHBhcn0= [employer] Work Phone: Pathologist Interpretation Location [facility], [address] [place] [address], [facility] [address], CLIA: [id number]; Joint Commission: HCO [id number]; CAP: [id number] [facility] Phone: Pathology report final diagnosis Narrative n9dniIOkUEKkmTBhQWcdD sasbdPoBYMvdFEpB4Hvbz gdBIbsOY1vHN4juSrmvPR sgHDrIETgIrNgh0ptt464 rKEbw4ipZWFSFCwuDIAPU Vu7u5jmVSNABPIbBC7vD1 17XGYyIENvdXJpZXIgTmV 5F600OOUrXHusgnaskS5d cep7yScxP53xs8R8PyfvC 751IQmooBfjhSLfOdsjp6 gfoCI3SOthw8MkHCA2YPc xCTW0R0djvRK9nWOwnAlg jYWdCI3az0sodZX5kmCrT BR0sZdquQX9xXsyazpqs1 lsuAH5xDX1RRcarGV1XLt bRkOxU2dsXJJfmY2qP12m V5tyUQJpaFhxHDhcSZCci AM4TNB9VKBgk4vnSUOrnV HkdLJpPrScNZD6CoM1YBs nRBK5rKuheKY6KVtlbX5u HVPsF48iWfUecLofUrJsA mktMzYwfXtcbGlzdGxldm VsXGxldmVsbmZjMjNcbGV 2VBlnWbNtQpMbhIP3GVpc OuUvgOP7QQxvaZBdaWZ6I XpghXU2TDs7MGv7XHulII 53dKltdWC4UTwjvF7oCUI dD20lXwBnrOynEOnqMAJv WVH2XV93MHowz0BrXSTsp LtrTXIdwJ9dMhBhTGnauo VsbmZjbjIzXGxldmVsamM iBHnkrhLlp1MknhOamJL5 HPhisqWagBH5dCfvIJRct D0yMMT0LF47yAwfpHB3WO hprV8zMRJcQ71dRjItuXg yKXQoTBWwXKR6XU44ZEke b2CmRLNkmLifRHVitS5nO zIzXGxldmVsbmZjbjIzXG kajnXyyoRkVBewtoUmp7Y bymYbzOL3JBqiynRdeRP9 sRnjMVNolSkeGvEyIZl3V Cx2d6arLAOooM61oGDcxg T5sVflZFblyFC6TqBzJim tMzYwfXtcbGlzdGxldmVs EAnvauZmcgGhLqNggYQ7J XmiJpLoGpVjyZZ0VFftVp FzbRR4BDbyyLXffUA1VVp ezJK3ZPd8IFy1URkvNG50 pJguqLT0DFkymF8hKXJrY 31cZjJcbGkzMjQwXGZpLT O4UY64SOdli9StSKKorBr lXDSpvC1iHrTnGFfhfjJx bmZjbjIzXGxldmVsamMwX TdqnxKlm6MwfcXymUB3PU wugsWzzXS3pWczGGNjpA2 fHDF6OD46vTuxmRG2IZyf wF8wMYKcH37jUnAdwRzmW XPqOYYmMHT2WF26ROfxq9 TsOEFwmFwuEZEdwF4oBwO zXGxldmVsbmZjbjIzXGxl jmEfqfXmVRxbqvOrh7Ysq iBeqNX0HFsgslAnbFF4iM imLKNhdHvkZyAcNQy4BNu 6d7reNRIdqW90wJTwdiC2 rYfbLNnwpFK6QWZwApbqV zYwfXtcbGlzdGxldmVsXG yyrdQnhdVjCuXkyKL4CJq yWhFtAsCxcOT3ZObfSgGv sGU0JKxvpSSkfNM4CVgrh VQ2UQy6LUg6LSykSI07oY gqdKA7EByxkE5jPWChI60 hEzIjxRi1FJOvDJUqCJD8 PY37HWxmc8IgLOQjiVegN ORstH8lWzJaYPgbjeJvkn ZjbjIzXGxldmVsamMwXGx ewrWit4SclkBdtSS8DGrm gcIugLO9ySjuOVSezH7zW TX4HT62kPersXA1PKpziI 2cOFJxA13oJlVuoDr9JFH uCUImNTL9HN09jJktLegs pCN1r9OibzLaFVN5HOLmK JklOdyrfIT8n4WtckFfLX DtbNkdzDbnAFTlHOH5ECK 2OCtox0JldnUbyxdbYKQi vV77AKzqmvE2xRluHSEkp gvwIuW5EMjsCKTmowwgKL e8ZIpfBXJltIH6XQZxpPP cF8LtPWEmTL0zypn2XYP4 KXaqVLGoCgR5OVQreFZdC VIliKnkEKyys177ZJJ6Gc OtQWByhqJcgYzebC6kCcK sMPKUKAdRYZAZP2WLByQF WSBBUlRFUlksIEVOREFSV BJJORFBC41FWPBvKLYmjA xwYXJcbGkzNjBcZmktMzY bAQkqhpY8PKeloqUmkGr6 lMZysBijkD4dWvLrYTXZS UxDSUZJRUQgQVRIRVJPTU GYF3DWKHIQRJWZFRBUMDY XNpsGFG1jlWEisH== [employer] Work Phone: [employer] Work Phone: No Panel Informationon 05-14 Interpretation and review of laboratory results Abnormal [facility] Interpretation and review of laboratory results Abnormal [facility] Interpretation and review of laboratory results Abnormal [facility] Progress Noteon 05-14-2024 Progress Note Department of Internal Medicine Division of Endocrinology, Diabetes, & Metabolism Endocrinology Note Patient Name: Farhana Thrasher : 1940 AGE: 84 y.o. Room/Bed: T1-116/T1-116 A Admission Date: 05/10/2024 Visit Date: 05/14/2024 Reason for Endocrine Consult: post op heart Provider/Team Requesting Consult: CTS PCP: KELSEY MOON MD Outpt Flow Match Sofa Cutter: No ASSESSMENT: DM2 with hyperglycemia and buttermaker helper insulin Stress hyperglycemia CABGX3 HLD/CAD Obesity Body mass index is 33.03 kg/m?. PLAN: Glucose readings are above target Increase Lantus to 28 units every morning, he received higher dose of Lantus this morning compared to yesterday but I think he still needs a higher dose of Lantus Increase Humalog to 10 units before meals keep Humalog medium scale Most likely patient will be discharged on his home regimen for diabetes as long as there is no contraindication I discussed with patient the option of continuous glucose monitor to start in the future and what benefits he could get from being on continuous glucose monitor ICU goal <180 GMF goal <150 POCT BG ACHS Hypoglycemia management per protocol Carb controlled diet ANTICIPATED ENDOCRINE HOME GOING RECOMMENDATIONS: Optimized for Discharge from Endocrine standpoint: yes Home Going Endocrine Rx Recommendations-- Soliqua pen home dose Jardiance home dose Metformin home dose Outpt Follow Up-- PCP SUBJECTIVE/HPI: CHIEF COMPLAINT: No chief complaint on file. S/p CABGx3 Noted hx of DM2 in chart review Glucose readings are above target Denies nausea vomiting or abdominal pain Type of DM: 2 Onset of DM: Over 40 years Home DM Medication Regimen: per chart-Soliqua pen 100/33 at 45 units daily am, jardiance 25 mg po daily, metformin 1 g po bid DM control (last A1c/glucose data): Lab Results Component Value Date HGBA1C 7.4 (H) 05/04/2024 Glucose Date/Time Value Ref Range Status 05/14/2024 11:16 AM 356 (H) 70 - 100 mg/dL Final 05/14/2024 08:32 AM 225 (H) 70 - 100 mg/dL Final 05/13/2024 09:24 PM 285 (H) 70 - 100 mg/dL Final 05/13/2024 04:47 PM 185 (H) 70 - 100 mg/dL Final 05/13/2024 11:18 AM 248 (H) 70 - 100 mg/dL Final 05/13/2024 08:34 AM 276 (H) 70 - 100 mg/dL Final Review of Systems All other systems reviewed and are negative. ROS negative except for those mentioned in HPI. OBJECTIVE: Vitals: 05/14/24 1245 05/14/24 1300 05/14/24 1315 05/14/24 1330 BP: (!) 129/48 (!) 131/45 BP Location: Left arm Patient Position: Sitting Pulse: 72 70 72 72 Resp: Temp: TempSrc: SpO2: 100% 100% 100% 100% Weight: Height: Physical Exam Vitals and nursing note reviewed. Constitutional: General: He is awake. He is not in acute distress. Appearance: He is obese. He is ill-appearing. He is not toxic-appearing. Interventions: Nasal cannula in place. HENT: Head: Normocephalic. Mouth/Throat: Mouth: Mucous membranes are moist. Cardiovascular: Rate and Rhythm: Normal rate. Pulmonary: Effort: Pulmonary effort is normal. No respiratory distress. Abdominal: Tenderness: There is no guarding. Skin: General: Skin is warm and dry. Coloration: Skin is pale. Comments: Intact incision Neurological: Mental Status: He is alert and oriented to person, place, and time. Psychiatric: Mood and Affect: Mood normal. Behavior: Behavior is cooperative. 24 hour intake/output: Intake/Output Summary (Last 24 hours) at 05/14/2024 1401 Last data filed at 05/14/2024 0516 Gross per 24 hour Intake 20 ml Output -- Net 20 ml Diet: Adult diet Regular; 5 carb choices (75 gm/meal) Medications (as per EMR): HomeMeds: Current Outpatient Medications Medication Instructions amLODIPine (Norvasc) 5 MG tablet Every evening aspirin 81 mg, Every evening atorvastatin (LIPITOR) 10 mg, Nightly Calcium Carb-Cholecalciferol (CALCIUM 500 + D3 PO) 1 tablet, Daily carbidopa-levodopa (Sinemet) 25-100 MG tablet 1 tablet, 3 times daily empagliflozin (JARDIANCE) 25 mg, Daily insulin glargine-lixisenatide (Soliqua) 100-33 UNT-MCG/ML pen 45 Units, Daily before breakfast metFORMIN (GLUCOPHAGE) 1,000 mg, 2 times daily with meals metoprolol succinate XL (TOPROL-XL) 12.5 mg, Daily Miconazole Nitrate 2 % ointment PRN mupirocin (Bactroban) 2 % ointment Apply liberal amount per nostril the night before surgery and then again the morning of surgery Propylene Glycol (LUBRICANT EYE DROP OP) PRN triamcinolone (Kenalog) 0.1 % ointment 1 Application, Daily PRN Vibegron 75 MG tablet 1 tablet, Daily Scheduled Meds:acetaminophen, 1,000 mg, Oral, q8h aspirin, 325 mg, Oral, Daily atorvastatin, 40 mg, Oral, Nightly carbidopa-levodopa, 1 tablet, Oral, TID chlorhexidine, , Topical, Daily chlorhexidine, 15 mL, Mouth/Throat, BID heparin, 5,000 Units, SubCUTAneous, BID [START ON 05/15/2024] insulin glargine, 26 Units, SubCUTAneous, q AM insulin lispro, 0-12 Units, SubCUTAneo (more content not included)... Normal [facility] Progress Note - Attestation signed by Luz Hough DO at 05/14/2024 2:29 PM I have personally performed a ovps-tx-eyde diagnostic evaluation on this patient on date of service 05/14/24. History, labs, imaging studies, and electronic medical record have been reviewed by me. This note documented by the []greenhouse grower [x]JULIO CESAR reflects my history, exam, and medical decision making. I have reviewed and agree with the care plan. Changes were made in the orders as necessary. ROS documentation was reviewed and negative unless otherwise stated in HPI. Assessment: -mvCAD s/p CABGx3 05/10 -acute post op blood loss anemia -mild carotid artery disease -DM2 with hyperglycemia (A1c 7.4) -Parkinson's disease -hx Prostate CA s/p prostatectomy Plan: -cont ASA, statin, and BB -cont home Sinemet -encourage pulm toilet, IS, up to chair, progressive mobility. Cont home cpap at night. -Cont PT/OT-current rec is IPR -endocrine following, insulin per their recs -Dispo: IPR vs home early this week Cardiothoracic Surgery/CCM Progress Note PATIENT NAME: Farhana Thrasher DATE: 05/14/24 HPI: 84 y.o. male referred by Dr. Elder for CABG. Patient has history of CAD, carotid artery disease, dyslipidemia, DM, and Parkinsonism. Pt saw Cardiology on 03/23/24 and reported SOB and chest burning with exertion a month prior. Stress test was ordered which showed moderate size reversible perfusion defect of the lateral wall suggestive of ischemia. Echocardiogram was also completed which demonstrated mild to moderate mitral valve insufficiency. Pt then underwent a heart catheterization on 04/24/24 which demonstrated severe multivessel CAD. Seen Dr. Velasco in OP setting on 04/25/24, agreeable to CABG and underwent surgery on 05/10/24. Surgery/Procedure: 05/10/24: s/p CABGx3 (PADILLA-LAD, RSVG-OM1, RSVG-PDA with endarterectomy), LEVDejah, RAYMOND with Dr. Velasco Interval History: 05/14/24, POD# 4: VSS. No acute issues overnight. Stated he had a good night besides having a bad dream. Dispo planning - goal likely IPR at beginning of week. Will need to coordinate with [facility] Review of Systems Constitutional: Negative for diaphoresis, fatigue and fever. Respiratory: Negative for cough, shortness of breath and wheezing. Cardiovascular: Negative for chest pain, palpitations and leg swelling. Gastrointestinal: Negative for abdominal distention, constipation and diarrhea. Skin: Negative for color change, pallor and rash. Objective: Last BM Date: 05/14/24 Vitals: BP: 111/94, MAP (mmHg): 101, BP Method: Automatic Heart Rate: 76 Resp: 18 Temp: 36.1 ?C (96.9 ?F), Temp Source: Temporal BMI (Calculated): 33.02 CXR: Pacing wires: V wires BMP: Recent Labs 05/12/24 0410 05/13/24 0456 05/14/24 0010 NA 137 139 138 K 4.3 4.1 3.8 CL 107 107 107 CO2 22* 24 23 BUN 18 25* 30* CREATININE 0.82 1.07 1.10 CALCIUM 8.4* 8.9 8.7* MG 2.0 2.1 2.3 CBC: Recent Labs 05/12/24 0410 05/13/24 0456 05/14/24 0010 WBC 9.3 10.5 8.5 HGB 7.5* 8.2* 7.6* HCT 22.9* 25.6* 23.7* PLT 103* 161 179 MCV 84.8 86.2 85.9 RDW 14.8 14.6 14.6 INR: Recent Labs 05/12/24 0410 INR 1.2* Physical Exam Cardiovascular: Rate and Rhythm: Normal rate and regular rhythm. Heart sounds: Normal heart sounds. No murmur heard. No friction rub. Pulmonary: Effort: Pulmonary effort is normal. Skin: General: Skin is warm and dry. Capillary Refill: Capillary refill takes less than 2 seconds. Findings: Bruising and ecchymosis present. Comments: Surgical Incisions: well approximate; clean dry with no drainage noted. Surrounding skin no redness, warmth, or signs of infection noted. Neurological: Mental Status: He is alert. Psychiatric: Behavior: Behavior is cooperative. Assessment: CAD s/p CABG T2DM, A1c 7.4% Dyslipidemia Carotid artery disease Parkinsonism Malignant neoplasm of prostate s/p prostatectomy Post operative Pulm Management: Normal Post-operative Course Post-operative Atrial Fibrillation: []Yes [x] No Acute blood loss anemia/consumptive thrombocytopenia Plan: Patient Status: Telemetry Medications: No changes to medications Continue ASA, statin and BB Full dose ASA due to endarterectomy, no plavix needed per surgeon Home Sinemet GI prophy: PO protonix DVT prophy: Heparin SubQ Bowel: senna/miralax Interventions: Home CPAP at Pulmonary hygiene: IS and Acapella TEDs, SCDs Restraints: []Yes [x] No Consults: Endocrinology following- insulin management D/c recs: TBD; continue home meds; f/u with PCP Therapies: PT: continue to assess, IPR 05/12 OT: IPR 05/11 Disposition: TBD - lIPR vs home early this week Tele Status A total (more content not included)... Normal [facility] XR CHEST 1 VIEWon 05-14-2024 XR CHEST 1 VIEW [facility] 1940 [id number] Exam Date/Time: 05/14/2024 09:12 Procedure: XR CHEST 1 VIEW Ordering Provider: HANDY KYLE Reason For Exam: Shortness of breath CHEST X-RAY ONE VIEW: CLINICAL INDICATION: Dyspnea TECHNIQUE: AP COMPARISON: Chest x-ray 05/13/2024, 05/12/2024, 05/11/2024, 05/10/2024, 05/04/2024 FINDINGS: Lines, tubes, and devices: Monitoring leads overlie the chest. Lungs: Unchanged bibasilar opacities and probable bilateral small pleural effusions. No vascular congestion or pneumothorax. Cardiomediastinal structures: Status post median sternotomy. Stable cardiomegaly. Other: Degenerative changes within the shoulders and spine. IMPRESSION: Unchanged bibasilar opacities and probable small bilateral pleural effusions. Report Dictated on Electronically Signed By: Mara Plata DO Electronically Signed Date/Time: 05/14/2024 9:23 AM EDT Normal [facility] XR Chest Single viewon 05-14 [facility] Radiology Study observation (narrative) [facility] Single viewOrdered By: Mara Plata on 05-14-2024 [facility] Work Phone: 30on 05-13-2024 30 Problem: Knowledge Deficit Goal: Patient/family/caregi luz demonstrates understanding of disease process, treatment plan, medications, and discharge instructions Outcome: Adequate for Discharge Flowsheets (Taken 05/12/2024 1505) Patient/family/caregi luz demonstrates understanding of disease process, treatment plan, medications, and discharge instructions: Complete learning assessment and assess knowledge base Provide teaching via preferred learning methods Provide teaching at level of understanding Problem: Potential for Compromised Skin Integrity Goal: Skin Integrity is Maintained or Improved Outcome: Adequate for Discharge Goal: Nutritional status is improving Outcome: Adequate for Discharge Problem: Urinary Incontinence Goal: Perineal skin integrity is maintained or improved Outcome: Adequate for Discharge Problem: Problem Interventions Goal: Assess Nutritional Intake Outcome: Adequate for Discharge Normal [facility] BASIC METABOLIC PANELon 04-23 Anion gap [Moles/Vol] 8 mmol/L Normal 3-13 [facility] Comment on above: Performed By: #### L AB15, [id number] ####Export Freight Clerk: DANIELLA PEREZ ([id number])[address] Calcium [Mass/Vol] 8.9 mg/dL Normal 8.8-10.0 [facility] Comment on above: Performed By: #### L AB15, [id number] ####Export Freight Clerk: DANIELLA PEREZ ([phone])[facility] ([facility])[address] [place] [address] Chloride [Moles/Vol] 107 mmol/L Normal 98-107 [facility] Comment on above: Performed By: #### L AB15, [id number] ####Export Freight Clerk: DANIELLA PEREZ ([id number])[facility] ([facility])[address] [place] [address] CO2 [Moles/Vol] 24 mmol/L Normal 23-31 [facility] Comment on above: Performed By: #### L AB15, [id number] ####Export Freight Clerk: DANIELLA PEREZ ([phone])[facility] ([facility])[address] [place] [address] Creatinine [Mass/Vol] 1.07 mg/dL Normal 0.72-1.25 [facility] Comment on above: Performed By: #### L AB15, [id number] ####Export Freight Clerk: DANIELLA PEREZ ([id number])[facility] ([facility])[address] [place] [address] [place] GLOMERULAR FILTRATION RATE ML/MIN/1.73 SQ M.PREDICTED 69.3 mL/min/1.73m*2 Normal >60.0 [facility] Comment on above: Result Comment: Calc ulation based on the Chronic Kidney Disease Epidemiology Collaboration (CKD-EPI) equation refit without adjustment for race Performed By: #### L AB15, [id number] ####Export Freight Clerk: DANIELLA PEREZ ([id number])[facility] ([facility])[address] [place] [address] Glucose [Mass/Vol] 183 mg/dL High 82-115 [facility] Comment on above: Performed By: #### L AB15, [id number] ####Export Freight Clerk: DANIELLA PEREZ ([phone])[facility] ([facility])[address] [place] [address] [place] Potassium [Moles/Vol] 4.1 mmol/L Normal 3.5-5.1 [facility] [facility] Comment on above: Result Comment: [facility] potassium values may be up to 0.5 mmol/L lower than serum values. Performed By: #### L AB15, [id number] ####Export Freight Clerk: DANIELLA PEREZ ([phone])[facility] ([facility])[address] [place] [address] Sodium [Moles/Vol] 139 mmol/L Normal 136-145 [facility] Comment on above: Performed By: #### L AB15, [id number] ####Export Freight Clerk: DANIELLA PEREZ ([phone])[facility] ([facility])[address] [place] [address] Urea nitrogen [Mass/Vol] 25 mg/dL High 9-23 [facility] Comment on above: Performed By: #### L AB15, [id number] ####Export Freight Clerk: DANIELLA PEREZ ([phone])[facility] ([facility])[address] [place] [address] Basic metabolic 1998 panelon 05-13-2024 Anion gap [Moles/Vol] 8 mmol/L 3 - 13 mmol/L [facility] Calcium [Mass/Vol] 8.9 mg/dL 8.8 - 10. 0 mg/dL [facility] Chloride [Moles/Vol] 107 mmol/L 98 - 10 7 mmol/L [facility] CO2 [Moles/Vol] 24 mmol/L 23 - 31 mmol/L [facility] Creatinine [Mass/Vol] 1.07 mg/dL 0.72 - 1.25 mg/dL [facility] GFR/1.73 sq M.predicted (S/P/Bld) [Vol rate/Area] 69.3 mL/min - PINF [facility] Glucose [Mass/Vol] 183 mg/dL High 82 - 115 mg/dL [facility] Interpretation and review of laboratory results Abnormal [facility] Potassium [Moles/Vol] 4.1 mmol/L 3.5 - 5.1 mmol/L [facility] Sodium [Moles/Vol] 139 mmol/L 136 - 145 mmol/L [facility] Urea nitrogen [Mass/Vol] 25 mg/dL High 9 - 23 mg/dL [facility] CBC (HEMOGRAM)on 05-13-2024 Erythrocyte distribution width (RBC) [Ratio] 14.6 % Normal 11.5-15.0 [facility] Comment on above: Performed By: #### L [id number] ####Export Freight Clerk: DANIELLA PEREZ ([phone])[facility] ([facility])[address] [place] [address] Hematocrit (Bld) [Volume fraction] 25.6 % Low 40.0-52.0 [facility] Comment on above: Performed By: #### L [id number] ####Export Freight Clerk: DANIELLA PEREZ ([phone])[facility] ([facility])[address] [place] [address] Hemoglobin (Bld) [Mass/Vol] 8.2 g/dL Low 13.0-18.0 [facility] Comment on above: Performed By: #### L [id number] ####Export Freight Clerk: DANIELLA PEREZ ([phone])[facility] ([facility])[address] [place] [address] MCH (RBC) [Entitic mass] 27.6 pg Normal 26.0-34.0 [facility] Comment on above: Performed By: #### L [id number] ####Export Freight Clerk: DANIELLA PEREZ ([phone])[facility])[address] [place] [address] MCHC 32.0 % Normal 30.5-36.0 [facility] Comment on above: Performed By: #### L [id number] ####Export Freight Clerk: DANIELLA PEREZ ([phone])[facility] ([facility])[address] [place] [address] MCV (RBC) [Entitic vol] 86.2 fL Normal 77.0-99.0 [facility] Comment on above: Performed By: #### L [id number] ####Export Freight Clerk: DANIELLA PEREZ ([phone])[facility])[address] [place] [address] Platelet mean volume (Bld) [Entitic vol] 10.2 fL Normal 9.0-12.7 [facility] Comment on above: Performed By: #### L [id number] ####Export Freight Clerk: DANIELLA PEREZ ([phone])[facility])[address] [place] [address] Platelets (Bld) [#/Vol] 161 10*3/uL Normal 140-440 [facility] Comment on above: Performed By: #### L [id number] ####Export Freight Clerk: DANIELLA PEREZ ([phone])[facility] ([facility])[address] [place] [address] RBC (Bld) [#/Vol] 2.97 10*6/uL Low 4.40-5.90 [facility] Comment on above: Performed By: #### L [id number] ####Export Freight Clerk: DANIELLA PEREZ ([phone])[facility] ([facility])[address] [place] [address] WBC (Bld) [#/Vol] 10.5 10*3/uL Normal 3.6-10.7 [facility] Comment on above: Performed By: #### L [id number] ####Export Freight Clerk: DANIELLA PEREZ ([phone])[facility] ([facility])[address] [place] [address] CBC panel Auto (Bld)Ordered By: Joel Nagel on 05-13-2024 Erythrocyte distribution width (RBC) [Ratio] 14.6 % 11.5 - 15.0 % [facility] Hematocrit (Bld) [Volume fraction] 25.6 % Low 40.0 - 52.0 % [facility] Hemoglobin (Bld) [Mass/Vol] 8.2 g/dL Low 13.0 - 18.0 g/dL [facility] Interpretation and review of laboratory results Abnormal [facility] MCH (RBC) [Entitic mass] 27.6 pg 26. 0 - 34.0 pg [facility] MCHC (RBC) [Mass/Vol] 32 % 30.5 - 36.0 % [facility] MCV (RBC) [Entitic vol] 86.2 fL 77.0 - 99.0 fL [facility] Platelet mean volume (Bld) [Entitic vol] 10.2 fL 9.0 - 12.7 fL [facility] Platelets (Bld) [#/Vol] 161 10*3/uL 140 - 440 10*3/uL [facility] RBC (Bld) [#/Vol] 2.97 10*6/uL Low 4.40 - 5.9 0 10*6/uL [facility] WBC (Bld) [#/Vol] 10.5 10*3/uL 3.6 - 10.7 10*3/uL [facility] Laboratory - Chemistry and C hemistry - challengeon 05-13-2024 Glucose [Mass/Vol] 285 mg/dL High 70 - 100 mg/dL [facility] Glucose [Mass/Vol] 185 mg/dL High 70 - 100 mg/dL [facility] Glucose [Mass/Vol] 248 mg/dL High 70 - 100 mg/dL [facility] Glucose [Mass/Vol] 276 mg/dL High 70 - 100 mg/dL [facility] Magnesium [Mass/Vol] 2.1 mg/dL 1.6 - 2 .6 mg/dL [facility] MAGNESIUMon 05-13-2024 Magnesium [Mass/Vol] 2.1 mg/dL Normal 1.6-2.6 [facility] Comment on above: Result Comment: JEAN CARLOS Nuñez COMMENTS: Higher values can be expected in females during menses. Performed By: #### L AB15, [id number] ####Export Freight Clerk: DANIELLA PEREZ ([phone])[facility] ([address] Magnesium [Mass/Vol]on 05-13 Interpretation and review of laboratory results Normal [facility] No Panel Informationon 05-13 Interpretation and review of laboratory results Abnormal [facility] Interpretation and review of laboratory results Abnormal [facility] Interpretation and review of laboratory results Abnormal [facility] Interpretation and review of laboratory results Abnormal [facility] Progress Noteon 05-13-2024 Progress Note - Attestation signed by Luz Hough DO at 05/13/2024 12:21 PM I have personally performed a [id number] diagnostic evaluation on this patient on date of service 05/13/24. History, labs, imaging studies, and electronic medical record have been reviewed by me. This note documented by the []greenhouse grower [x]JULIO CESAR reflects my history, exam, and medical decision making. I have reviewed and agree with the care plan. Changes were made in the orders as necessary. ROS documentation was reviewed and negative unless otherwise stated in HPI. Assessment: -mvCAD s/p CABGx3 05/10 -acute post op blood loss anemia -mild carotid artery disease -DM2 with hyperglycemia (A1c 7.4) -Parkinson's disease -hx Prostate CA s/p prostatectomy Plan: -cont supplemental 02, wean as able -cont ASA and statin. Increase BB -cont home Sinemet -encourage pulm toilet, IS, up to chair. Cont PT/OT-current rec is IPR -endocrine following, insulin per their recs Cardiothoracic Surgery/[facility] Progress Note PATIENT NAME: Farhana Thrasher DATE: 05/13/24 HPI: 84 y.o. male referred by Dr. Elder for CABG. Patient has history of CAD, carotid artery disease, dyslipidemia, DM, and Parkinsonism. Pt saw Cardiology on 03/23/24 and reported SOB and chest burning with exertion a month prior. Stress test was ordered which showed moderate size reversible perfusion defect of the lateral wall suggestive of ischemia. Echocardiogram was also completed which demonstrated mild to moderate mitral valve insufficiency. Pt then underwent a heart catheterization on 04/24/24 which demonstrated severe multivessel CAD. Seen Dr. Velasco in OP setting on 04/25/24, agreeable to CABG and underwent surgery on 05/10/24. Surgery/Procedure: 05/10/24: s/p CABGx3 (PADILLA-LAD, RSVG-OM1, RSVG-PDA with endarterectomy), LEVH, R[place]MON[place] with Dr. Velasco Interval History: 05/13/24, POD# 3: VSS; on RA - no acute issues noted overnight. Getting stronger each day. Still progressing from physical standpoint. 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 He is open to IPR. Pain controlled currently. Does complain of neck pain - likely related to positioning intraoperatively. Review of Systems Constitutional: Positive for activity change. Negative for diaphoresis, fatigue and fever. Respiratory: Negative for cough, shortness of breath and wheezing. Cardiovascular: Negative for chest pain, palpitations and leg swelling. Gastrointestinal: Negative for abdominal distention, constipation and diarrhea. Musculoskeletal: Positive for gait problem. Neck pain Skin: Negative for color change, pallor and rash. Objective: Last BM Date: 05/13/24 Vitals: BP: 122/60, MAP (mmHg): 76, BP Method: Automatic Heart Rate: 69 Resp: 15 Temp: 36.7 ?C (98 ?F), Temp Source: Temporal BMI (Calculated): 33.67 CXR: Pacing wires: V wires BMP: Recent Labs 05/10/24 1104 05/10/24 1348 05/10/24 1739 05/11/24 0459 05/12/24 0410 05/13/24 0456 NA 139 141 < > 140 137 139 K 3.6 3.1* < > 4.4 4.3 4.1 CL 111* 112* < > 113* 107 107 CO2 22* 21* < > 21* 22* 24 BUN 17 17 < > 14 18 25* CREATININE 0.84 0.89 < > 0.80 0.82 1.07 CALCIUM 9.8 8.4* < > 8.1* 8.4* 8.9 MG 3.4* 2.6 -- 2.1 2.0 2.1 PHOS 3.4 4.0 -- -- -- -- < > = values in this interval not displayed. CBC: Recent Labs 05/10/24200205/10/24 2210 05/11/24 0103 05/11/24 0730 05/12/24 0410 05/13/24 0456 WBC 8.8 -- -- -- 9.3 10.5 HGB 7.3* < > 7.7* 7.9 7.5* 8.2* HCT 22.2* -- 23.7* -- 22.9* 25.6* PLT 110* -- -- -- 103* 161 MCV 85.7 -- -- -- 84.8 86.2 RDW 14.3 -- -- -- 14.8 14.6 < > = values in this interval not displayed. INR: Recent Labs 05/10/24 1104 05/11/24 0459 05/12/24 0410 INR 1.3* 1.1 1.2* Physical Exam Cardiovascular: Rate and Rhythm: Normal rate and regular rhythm. Occasional Extrasystoles are present. Heart sounds: Normal heart sounds. No murmur heard. No friction rub. Pulmonary: Effort: Pulmonary effort is normal. Skin: General: Skin is warm and dry. Capillary Refill: Capillary refill takes less than 2 seconds. Findings: Bruising and ecchymosis present. Comments: Surgical Incisions: well approximate; clean dry with no drainage noted. Surrounding skin no redness, warmth, or signs of infection noted. Neurological: Mental Status: He is alert. Psychiatric: Behavior: Behavior is cooperative. Assessment: CAD s/p CABG T2DM, A1c 7.4% Dyslipidemia Carotid artery disease Parkinsonism Malignant neoplasm of prostate s/p prostatectomy Post operative Pulm Management: Normal Post-operative Course Post-operative Atrial Fibrillation: []Yes [x] No Acute blood loss anemia/consumptive t (more content not included)... Normal [facility] Progress Note Department of Internal Medicine Division of Endocrinology, Diabetes, & Metabolism Endocrinology Note Patient Name: Farhana Thrasher : 1940 AGE: 84 y.o. Room/Bed: [facility]ust116 A Admission Date: 05/10/2024 Visit Date: 05/13/2024 Reason for Endocrine Consult: post op heart Provider/Team Requesting Consult: CTS PCP: KELSEY MOON MD Outpt Flow Match Sofa Cutter: No ASSESSMENT: DM2 with hyperglycemia and buttermaker helper insulin Stress hyperglycemia CABGX3 HLD/CAD Obesity Body mass index is 33.67 kg/m?. PLAN: Glucose readings are above target Increase Lantus to 22 units every morning Increase Humalog to 8 units before meals keep Humalog medium scale Most likely patient will be discharged on his home regimen for diabetes as long as there is no contraindication ICU goal <180 GMF goal <150 POCT BG ACHS Hypoglycemia management per protocol Carb controlled diet ANTICIPATED ENDOCRINE HOME GOING RECOMMENDATIONS: Optimized for Discharge from Endocrine standpoint: yes Home Going Endocrine Rx Recommendations-- Soliqua pen home dose Jardiance home dose Metformin home dose Outpt Follow Up-- PCP SUBJECTIVE/HPI: CHIEF COMPLAINT: No chief complaint on file. S/p CABGx3 Noted hx of DM2 in chart review Glucose readings are slightly above target Blood glucose this morning was above target significantly because it was obtained after breakfast Denies nausea vomiting or abdominal pain Reported muscle aches at his neck Type of DM: 2 Onset of DM: Over 40 years Home DM Medication Regimen: per chart-Soliqua pen 100/33 at 45 units daily am, jardiance 25 mg po daily, metformin 1 g po bid DM control (last A1c/glucose data): Lab Results Component Value Date HGBA1C 7.4 (H) 05/04/2024 Glucose Date/Time Value Ref Range Status 05/13/2024 08:34 AM 276 (H) 70 - 100 mg/dL Final 05/12/2024 09:37 PM 185 (H) 70 - 100 mg/dL Final 05/12/2024 05:23 PM 213 (H) 70 - 100 mg/dL Final 05/12/2024 10:50 AM 168 (H) 70 - 100 mg/dL Final 05/12/2024 07:21 AM 200 (H) 70 - 100 mg/dL Final 05/11/2024 08:50 PM 192 (H) 70 - 100 mg/dL Final Review of Systems All other systems reviewed and are negative. ROS negative except for those mentioned in HPI. OBJECTIVE: Vitals: 05/13/24 0600 05/13/24 0700 05/13/24 0715 05/13/24 0730 BP: (!) 124/47 122/60 Pulse: 73 66 70 69 Resp: Temp: TempSrc: SpO2: 98% 100% 99% 100% Weight: Height: Physical Exam Vitals and nursing note reviewed. Constitutional: General: He is awake. He is not in acute distress. Appearance: He is obese. He is ill-appearing. He is not toxic-appearing. Interventions: Nasal cannula in place. HENT: Head: Normocephalic. Mouth/Throat: Mouth: Mucous membranes are moist. Cardiovascular: Rate and Rhythm: Normal rate. Pulmonary: Effort: Pulmonary effort is normal. No respiratory distress. Abdominal: Tenderness: There is no guarding. Skin: General: Skin is warm and dry. Coloration: Skin is pale. Comments: Intact incision Neurological: Mental Status: He is alert and oriented to person, place, and time. Psychiatric: Mood and Affect: Mood normal. Behavior: Behavior is cooperative. 24 hour intake/output: Intake/Output Summary (Last 24 hours) at 05/13/2024 0931 Last data filed at 05/13/2024 0500 Gross per 24 hour Intake -- Output 515 ml Net -515 ml Diet: Adult diet Regular; 5 carb choices (75 gm/meal) Medications (as per EMR): HomeMeds: Current Outpatient Medications Medication Instructions amLODIPine (Norvasc) 5 MG tablet Every evening aspirin 81 mg, Every evening atorvastatin (LIPITOR) 10 mg, Nightly Calcium Carb-Cholecalciferol (CALCIUM 500 + D3 PO) 1 tablet, Daily carbidopa-levodopa (Sinemet) 25-100 MG tablet 1 tablet, 3 times daily empagliflozin (JARDIANCE) 25 mg, Daily insulin glargine-lixisenatide (Soliqua) 100-33 UNT-MCG/ML pen 45 Units, Daily before breakfast metFORMIN (GLUCOPHAGE) 1,000 mg, 2 times daily with meals metoprolol succinate XL (TOPROL-XL) 12.5 mg, Daily Miconazole Nitrate 2 % ointment PRN mupirocin (Bactroban) 2 % ointment Apply liberal amount per nostril the night before surgery and then again the morning of surgery Propylene Glycol (LUBRICANT EYE DROP OP) PRN triamcinolone (Kenalog) 0.1 % ointment 1 Application, Daily PRN Vibegron 75 MG tablet 1 tablet, Daily Scheduled Meds:acetaminophen, 1,000 mg, Oral, q8h aspirin, 325 mg, Oral, Daily atorvastatin, 40 mg, Oral, Nightly carbidopa-levodopa, 1 tablet, Oral, TID chlorhexidine, , Topical, Daily chlorhexidine, 15 mL, Mouth/Throat, BID heparin, 5,000 Units, SubCUTAneous, BID insulin glargine, 18 Units, SubCUTAneous, q AM insulin lispro, 0-12 Units, SubCUTAneous, TID WC insulin lispro, 6 Units, SubCUTAneous, TID WC Lidocaine, 1 patch, Topical, Daily magnesium hydroxide, 30 mL, Oral, Daily metoprolol tartrate, 12.5 mg, Oral, BID mupirocin, , Nasal, BID pantoprazole, (more content not included)... Normal [facility] XR CHEST 1 VIEWon 05-13-2024 XR CHEST 1 VIEW [facility] 1940 [id number] Exam Date/Time: 05/13/2024 05:34 Procedure: XR CHEST 1 VIEW Ordering Provider: HANDY KYLE Reason For Exam: Shortness of breath CHEST X-RAY CLINICAL INDICATION: Shortness of breath TECHNIQUE: AP COMPARISON: 05/12/2024 FINDINGS: Quality: Exam quality: EKG leads obscure small portions of the chest. Lines: Interval removal of chest tubes. Cardiomediastinal Silhouette: The cardiomediastinal silhouette is stable compared to prior exam.. Postsurgical changes compatible with median sternotomy and cardiac surgery. Lungs: Bibasilar interstitial opacities seen particularly on the left, may reflect atelectasis or developing infiltrate. No evidence of pleural effusion or pneumothorax. Soft tissue: The soft tissue structures appear unremarkable. Bones: Degenerative change of the thoracic spine is noted. IMPRESSION: See findings. Report Dictated on Electronically Signed By: Kvng Martin MD Electronically Signed Date/Time: 05/13/2024 5:44 AM EDT Normal [facility] XR Chest Single viewon 05-13 [facility] Radiology Study observation (narrative) [facility] XR Chest Single viewOrdered By: Kvng Martin on 05-13-2024 [facility] Work Phone: 30on 05-12-2024 30 Problem: Knowledge Deficit Goal: Patient/family/caregi luz demonstrates understanding of disease process, treatment plan, medications, and discharge instructions Outcome: Progressing Flowsheets (Taken 05/12/2024 1505) Patient/family/caregi luz demonstrates understanding of disease process, treatment plan, medications, and discharge instructions: Complete learning assessment and assess knowledge base Provide teaching via preferred learning methods Provide teaching at level of understanding Problem: Potential for Compromised Skin Integrity Goal: Skin Integrity is Maintained or Improved Outcome: Progressing Problem: Potential for Compromised Skin Integrity Goal: Nutritional status is improving Outcome: Progressing Problem: Urinary Incontinence Goal: Perineal skin integrity is maintained or improved Outcome: Progressing Problem: Problem Interventions Goal: Assess Nutritional Intake Outcome: Progressing Normal [facility] BASIC METABOLIC PANELon -2 Anion gap [Moles/Vol] 8 mmol/L Normal 3-13 [facility] Comment on above: Performed By: #### L AB103, LAB15 ####Export Freight Clerk: DANIELLA PEREZ ([phone])[facility] ([facility])[address] [place] [address] Calcium [Mass/Vol] 8.4 mg/dL Low 8.8-10.0 [facility] Comment on above: Performed By: #### L AB103, LAB15 ####Export Freight Clerk: DANIELLA PEREZ ([phone])[facility] ([facility])[address] [place] [address] Chloride [Moles/Vol] 107 mmol/L Normal 98-107 [facility] Comment on above: Performed By: #### L AB103, LAB15 ####Export Freight Clerk: DANIELLA PEREZ ([phone])[facility] [place] [address] CO2 [Moles/Vol] 22 mmol/L Low 23-31 [facility] Comment on above: Performed By: #### L AB103, LAB15 ####Export Freight Clerk: DANIELLA PEREZ ([phone])[facility] ([facility])[address] [place] [address] Creatinine [Mass/Vol] 0.82 mg/dL Normal 0.72-1.25 [facility] Comment on above: Performed By: #### L AB103, LAB15 ####Export Freight Clerk: DANIELLA PEREZ ([phone])[facility])[address] [place] [address] GLOMERULAR FILTRATION RATE ML/MIN/1.73 SQ M.PREDICTED 87.7 mL/min/1.73m*2 Normal >60.0 [facility] Comment on above: Result Comment: Calc ulation based on the Chronic Kidney Disease Epidemiology Collaboration (CKD-EPI) equation refit without adjustment for race Performed By: #### L AB103, LAB15 ####Export Freight Clerk: DANIELLA PEREZ ([phone])[facility])[address] [place] [address] Glucose [Mass/Vol] 164 mg/dL High 82-115 [facility] Comment on above: Performed By: #### L AB103, LAB15 ####Export Freight Clerk: DANIELLA PEREZ ([phone])[facility])[address] [place] [address] Potassium [Moles/Vol] 4.3 mmol/L Normal 3.5-5.1 [facility] Comment on above: Result Comment: [facility] potassium values may be up to 0.5 mmol/L lower than serum values. Performed By: #### L AB103, LAB15 ####Export Freight Clerk: DANIELLA PEREZ ([phone])[facility])[address] [place] [address] Sodium [Moles/Vol] 137 mmol/L Normal 136-145 [facility] Comment on above: Performed By: #### L AB103, LAB15 ####Export Freight Clerk: DANIELLA PEREZ ([phone])[address] Urea nitrogen [Mass/Vol] 18 mg/dL Normal 9-23 [facility] Comment on above: Performed By: #### L AB103, LAB15 ####Export Freight Clerk: DANIELLA PEREZ ([phone])[facility])[address] [place] [address] Basic metabolic 1998 panelon 05-12-2024 Anion gap [Moles/Vol] 8 mmol/L 3 - 13 mmol/L [facility] Calcium [Mass/Vol] 8.4 mg/dL Low 8.8 - 10. 0 mg/dL [facility] Chloride [Moles/Vol] 107 mmol/L 98 - 10 7 mmol/L [facility] CO2 [Moles/Vol] 22 mmol/L Low 23 - 31 mmol/L [facility] Creatinine [Mass/Vol] 0.82 mg/dL 0.72 - 1.25 mg/dL [facility] GFR/1.73 sq M.predicted (S/P/Bld) [Vol rate/Area] 87.7 mL/min - PINF [facility] Glucose [Mass/Vol] 164 mg/dL High 82 - 115 mg/dL [facility] Interpretation and review of laboratory results Abnormal [facility] Potassium [Moles/Vol] 4.3 mmol/L 3.5 - 5.1 mmol/L [facility] Sodium [Moles/Vol] 137 mmol/L 136 - 145 mmol/L [facility] Urea nitrogen [Mass/Vol] 18 mg/dL 9 - 23 mg/dL [facility] CBC (HEMOGRAM)on 05-12-2024 Erythrocyte distribution width (RBC) [Ratio] 14.8 % Normal 11.5-15.0 [facility] Comment on above: Performed By: #### L [id number] ####Export Freight Clerk: DANIELLA PEREZ ([phone])[address] Hematocrit (Bld) [Volume fraction] 22.9 % Low 40.0-52.0 [facility] Comment on above: Performed By: #### L [id number] ####Export Freight Clerk: DANIELLA PEREZ ([phone])[address] Hemoglobin (Bld) [Mass/Vol] 7.5 g/dL Low 13.0-18.0 [facility] Comment on above: Performed By: #### L [id number] ####Export Freight Clerk: DANIELLA PEREZ ([phone])[facility])[address] [place] [address] MCH (RBC) [Entitic mass] 27.8 pg Normal 26.0-34.0 [facility] Comment on above: Performed By: #### L [id number] ####Export Freight Clerk: DANIELLA PEREZ ([phone])[address] MCHC 32.8 % Normal 30.5-36.0 [facility] Comment on above: Performed By: #### L [id number] ####Export Freight Clerk: DANIELLA PEREZ ([phone])[facility] ([facility])[address] [place] [address] MCV (RBC) [Entitic vol] 84.8 fL Normal 77.0-99.0 [facility] Comment on above: Performed By: #### L [id number] ####Export Freight Clerk: DANIELLA PEREZ ([phone])[facility] ([facility])[address] [place] [address] Platelet mean volume (Bld) [Entitic vol] 9.7 fL Normal 9.0-12.7 [facility] Comment on above: Performed By: #### L [id number] ####Export Freight Clerk: DANIELLA PEREZ ([phone])[facility])[address] [place] [address] Platelets (Bld) [#/Vol] 103 10*3/uL Low 140-440 [facility] Comment on above: Performed By: #### L [id number] ####Export Freight Clerk: DANIELLA PEREZ ([id number])[facility])[address] [place] [address] RBC (Bld) [#/Vol] 2.70 10*6/uL Low 4.40-5.90 [facility] Comment on above: Performed By: #### L [id number] ####Export Freight Clerk: DANIELLA PEREZ ([phone])[facility])[address] [place] [address] WBC (Bld) [#/Vol] 9.3 10*3/uL Normal 3.6-10.7 [facility] Comment on above: Performed By: #### L [id number] ####Export Freight Clerk: DANIELLA PEREZ ([phone])[facility])[address] [place] [address] CBC panel Auto (Bld)on 05-12 Erythrocyte distribution width (RBC) [Ratio] 14.8 % 11.5 - 15.0 % [facility] Hematocrit (Bld) [Volume fraction] 22.9 % Low 40.0 - 52.0 % [facility] Hemoglobin (Bld) [Mass/Vol] 7.5 g/dL Low 13.0 - 18.0 g/dL [facility] Interpretation and review of laboratory results Abnormal [facility] MCH (RBC) [Entitic mass] 27.8 pg 26. 0 - 34.0 pg [facility] MCHC (RBC) [Mass/Vol] 32.8 % 30.5 - 36.0 % [facility] MCV (RBC) [Entitic vol] 84.8 fL 77.0 - 99.0 fL [facility] Platelet mean volume (Bld) [Entitic vol] 9.7 fL 9.0 - 12.7 fL [facility] Platelets (Bld) [#/Vol] 103 10*3/uL Low 140 - 440 10*3/uL [facility] RBC (Bld) [#/Vol] 2.7 10*6/uL Low 4.40 - 5.9 0 10*6/uL [facility] WBC (Bld) [#/Vol] 9.3 10*3/uL 3.6 - 10.7 10*3/uL [facility] Laboratory - Chemistry and C hemistry - challengeon 05-12-2024 Glucose [Mass/Vol] 185 mg/dL High 70 - 100 mg/dL [facility] Glucose [Mass/Vol] 213 mg/dL High 70 - 100 mg/dL [facility] Glucose [Mass/Vol] 168 mg/dL High 70 - 100 mg/dL [facility] Glucose [Mass/Vol] 200 mg/dL High 70 - 100 mg/dL [facility] Magnesium [Mass/Vol] 2 mg/dL 1.6 - 2 .6 mg/dL [facility] Laboratory - Coagulationon 0 05-12-2024 aPTT Coag (PPP) [Time] 43.6 s High 20.0 - 30.5 s [facility] INR Coag (PPP) [Relative time] 1.2 {INR} High 0.9 - 1.1 [facility] PT Coag (Bld) [Time] 13.1 s High 9.0 - 1 2.0 s [facility] MAGNESIUMon 05-12-2024 Magnesium [Mass/Vol] 2.0 mg/dL Normal 1.6-2.6 [facility] Comment on above: Result Comment: ORDE R COMMENTS: Higher values can be expected in females during menses. Performed By: #### L [id number], [id number] ####Export Freight Clerk: DANIELLA PEREZ ([phone])[facility])[address] [place] [address] Magnesium [Mass/Vol]on 05-12 Interpretation and review of laboratory results Normal [facility] No Panel Informationon 05-12 Interpretation and review of laboratory results Abnormal [facility] Interpretation and review of laboratory results Abnormal [facility] Interpretation and review of laboratory results Abnormal [facility] Interpretation and review of laboratory results Abnormal [facility] Interpretation and review of laboratory results Abnormal [facility] PROTIME AND APTTon aPTT Coag (Bld) [Time] 43.6 s High 20.0-30.5 [facility] Comment on above: Performed By: #### L [id number] ####Export Freight Clerk: DANIELLA PEREZ ([phone])[facility] ([facility])[address] [place] [address] INR Coag (PPP) [Relative time] 1.2 {INR} High 0.9-1.1 [facility] Comment on above: Result Comment: Poli mmended Anticoagulant Therapy: SEE BELOW ----- INR of 2.0 - 3.0 : - Prophylaxis of Venous Thrombosis (high-risk surgery) - Treatment of Venous Thrombosis - Treatment of Pulmonary Embolism (Includes tissue heart valves, Acute Myocardial Infarction to prevent systemic embolism, Valvular Heart Disease, and Atrial Fibrillation) ----- INR of 2.5 - 3.5 : - Mechanical Prosthetic Valves (high risk) - If oral anticoagulant therapy is used to prevent Myocardial Infarction Performed By: #### L [id number] ####Export Freight Clerk: DANIELLA PEREZ ([id number])[facility] ([facility])[address] [place] [address] PT Coag (PPP) [Time] 13.1 s High 9.0-12.0 [facility] Comment on above: Performed By: #### L [id number] ####Export Freight Clerk: DANIELLA PEREZ ([id number])[address] Progress Noteon 05-12-2024 Progress Note Cardiothoracic Surgery Note PATIENT NAME: Farhana Thrasher : 1940 (84 y.o.) TODAY'S DATE: 05/12/2024 Objective: BP (!) 96/48 Pulse 70 Temp 36.9 ?C (98.5 ?F) (Temporal) Resp 15 Ht 5' 7 (1.702 m) Wt 202 lb 4.8 oz (91.8 kg) SpO2 100% BMI 31.68 kg/m? Chest tubes assessed: no air leak, subcutaneous air noted. Chest tubes removed without difficulty and dressing applied. Patient tolerated well. Patient and nurse educated on possible complications to observe for. Will continue to monitor. [facility] Progress Note PHYSICAL THERAPY [facility] Treatment Note Name/MRN: Marcus Thrasher ([id number]) Date of : 1940 Age: 84 y.o. Room/Bed: T1-116/T1-116 A Discharge Recommendation: Continue to assess pending progress, IP Rehab Other: owns a cane Prior Level of Function Prior Level of ADL Function: Required Assist Prior Level of Mobility: Independent; Device: Straight Cane and bilat AFO Prior Level of Transfers: Independent Assessment Pt required Mod A for ambulation plus 1 person for line management, pt needed assist with managing device. Mod A for sit to stand transfers. Required cues for sternal precautions. Recommend IP Rehab after discharge but continue to assess. Subjective Pt seated in reclining chair, present. Agreeable and pleasant to PT. Pain: C/o R shoulder pain with some P&C due to previous rotator cuff tear Medical Precautions: No active isolations Proper PPE donned/doffed in accordance with facility standards. Fall Risk: [place] Fall Risk Score: 45 (High Risk) Precautions/Restricti ons: Sternal Precautions: No Pushing, No Pulling, No Lifting Greater Than 10 lbs and No lifting greater than 10 lbs. Ok for modified UE precautions using Keep Your Move in the Tube technique Lines/Drains/Airways: tele, chest tube x 2, PIV, 2L O2, benavidez Fall Precautions Overall Cognitive Status: WNL Overall Orientation Status: Oriented to Time and Oriented to Person Family/Caregiver Present: spouse Objective Transfers/Mobility Sit to stand: Mod Assist Stand to sit: Mod Assist Cued for sternal precautions Ambulation Ambulation 1 Assistive device(s) used: Nezzie Assist level: Mod Assist Distance (ft): 100' Quality of gait: uneven step length, narrow MARIBEL, instability through all phases Cued to slow down Required assistance with managing device B AFOs already donned Exercises Exercises Comments: P&C 1-5 x10 reps, 6-9 x5 reps due to fatigue IS: [id number] mL x5 reps Acapella: x5 reps Plan Continue acute PT per plan of care. Safety/Education Safety Safety Devices in place: call light within reach, left in chair, and patient at risk for falls Restraints: No Education Transfers, ambulation, therex, IS, sternal precautions, and acapella Outcome Measures AM-PAC AM-PAC Inpatient Mobility Raw Score (No Stairs) : 12 JH-HLM -M Score: Walked 25 ft or more (i.e. walked outside of room) Goals Patient Stated Goal: To go home. Encounter Problems Encounter Problems (Active) Cardiac Patient will perform bed mobility with modified independence in order to improve independence and prepare for out of bed mobility. (Not Addressed) Start: 05/11/24 Expected End: 06/08/24 Patient will complete sit to stand transfer with modified independence to straight cane and rolling walker in order to improve safety and prepare for out of bed mobility. (Progressing) Start: 05/11/24 Expected End: 06/08/24 Patient will ambulate 250 feet or ambulate 5 minutes with supervision with RPE of 14 or lower. (Progressing) Start: 05/11/24 Expected End: 06/08/24 Patient will ascend and descend 3 # stairs with supervision rail for balance only. (Not Addressed) Start: 05/11/24 Expected End: 06/08/24 Patient will be independent with P&C exercises. (Progressing) Start: 05/11/24 Expected End: 06/08/24 Patient will be independent with managing secretions and home walking program. (Progressing) Start: 05/11/24 Expected End: 06/08/24 Therapy Time Individual Co-treatment Time In 1138 Time Out 1204 Minutes 26 Timed Code Treatment Minutes: 26 Minutes (gait & tp) Sosa Alfred, FRANKIE Arguello, [facility] Progress Note - Attestation signed by Lilian Cisse MD at 05/12/2024 1:56 PM I have personally performed a face to face diagnostic evaluation on this patient. In addition, I have reviewed the resident's/AUTOMOTIVE SERVICE WRITER/FOOTBALL PAD REPAIRER's care plan and agree with those findings I have performed a substantive portion of the the medical decision making. My findings are as follows: Glucose readings so far reasonable Denies complaints Vitals: BP (!) 96/48 Pulse 70 Temp 36.9 ?C (98.5 ?F) (Temporal) Resp 15 Ht 5' 7 (1.702 m) Wt 202 lb 4.8 oz (91.8 kg) SpO2 100% BMI 31.68 kg/m? Respiratory: No respiratory distress Cardiovascular System:o lower extremity edema Abdomen: obese A/P Type 2 diabetes with hyperglycemia with long-term insulin use Type 2 diabetes with cardiac complication Body mass index is 33.05 kg/m?. Continue Lantus 18 units every morning Continue Humalog 6 units before meals with medium dose correction Discussed the case with his nurse Most likely patient will be discharged on his home regimen for diabetes as long as there is no contraindication I spent 20 minutes with the pt which involved in coordination of care, medical evaluation, review of records, and/or counseling of the pt regarding the condition/disease state/prognosis on the date of this note. Old records including available PCP, ED notes and or other specialists notes are reviewed. LABs and/or imaging are reviewed as detailed in the resident's/AUTOMOTIVE SERVICE WRITER/FOOTBALL PAD REPAIRER's note Department of Internal Medicine Division of Endocrinology, Diabetes, & Metabolism Endocrinology Note Patient Name: Farhana Thrasher : 1940 AGE: 84 y.o. Room/Bed: T1-116/T1-116 A Admission Date: 05/10/2024 Visit Date: 05/12/2024 Reason for Endocrine Consult: post op heart Provider/Team Requesting Consult: CTS PCP: KELSEY MOON MD Outpt Flow Match Sofa Cutter: No ASSESSMENT: DM2 with hyperglycemia and buttermaker helper insulin Stress hyperglycemia CABGX3 HLD/CAD Obesity Body mass index is 31.68 kg/m?. PLAN: continue Lantus 18 units daily AM Keep Humalog keep Humalog medium scale ICU goal <180 GMF goal <150 POCT BG ACHS Hypoglycemia management per protocol Carb controlled diet ANTICIPATED ENDOCRINE HOME GOING RECOMMENDATIONS: Optimized for Discharge from Endocrine standpoint: No Home Going Endocrine Rx Recommendations-- Tbd- if no CI resume home regimen Soliqua pen Jardiance home dose Metformin home dose Outpt Follow Up-- Can offer SUBJECTIVE/HPI: CHIEF COMPLAINT: No chief complaint on file. S/p CABGx3 Noted hx of DM2 in chart review BGL below-stable In bed Awake alert Vss ra Ct in place Eating ok- had bfast -denies nv abd pain Spoke with nursing Type of DM: 2 Onset of DM: Over 40 years Home DM Medication Regimen: per chart-Soliqua pen 100/33 at 45 units daily am, jardiance 25 mg po daily, metformin 1 g po bid DM control (last A1c/glucose data): Lab Results Component Value Date HGBA1C 7.4 (H) 05/04/2024 Glucose Date/Time Value Ref Range Status 05/12/2024 07:21 AM 200 (H) 70 - 100 mg/dL Final 05/11/2024 08:50 PM 192 (H) 70 - 100 mg/dL Final 05/11/2024 04:23 PM 137 (H) 70 - 100 mg/dL Final 05/11/2024 12:12 PM 127 (H) 70 - 100 mg/dL Final 05/11/2024 10:23 AM 150 (H) 70 - 100 mg/dL Final 05/11/2024 09:08 AM 148 (H) 70 - 100 mg/dL Final Review of Systems All other systems reviewed and are negative. ROS negative except for those mentioned in HPI. OBJECTIVE: Vitals: 05/12/24 0530 05/12/24 0600 05/12/24 0630 05/12/24 0730 BP: Pulse: 86 95 87 Resp: 15 Temp: TempSrc: SpO2: 98% 96% 94% 95% Weight: 202 lb 4.8 oz (91.8 kg) Height: Physical Exam Vitals and nursing note reviewed. Constitutional: General: He is awake. He is not in acute distress. Appearance: He is obese. He is ill-appearing. He is not toxic-appearing. Interventions: Nasal cannula in place. HENT: Head: Normocephalic. Mouth/Throat: Mouth: Mucous membranes are moist. Cardiovascular: Rate and Rhythm: Normal rate. Pulmonary: Effort: Pulmonary effort is normal. No respiratory distress. Abdominal: Tenderness: There is no guarding. Skin: General: Skin is warm and dry. Coloration: Skin is pale. Comments: Intact incision Neurological: Mental Status: He is alert and oriented to person, place, and time. Psychiatric: Mood and Affect: Mood normal. Behavior: Behavior is cooperative. 24 hour intake/output: Intake/Output Summary (Last 24 hours) at 05/12/2024 0909 Last data filed at 05/12/2024 0600 Gross per 24 hour Intake 2278 ml Output 1650 ml Net 628 ml Diet: Adult diet Regular; 5 carb choices (75 gm/meal) Medications (as per EMR): HomeMeds: Current Outpatient Medications Medication Instructions amLODIPine (Norvasc) 5 MG (more content not included)... Normal [facility] Progress Note - Attestation signed by Luz Hough DO at 05/12/2024 3:54 PM I have personally performed a okxh-bw-exth diagnostic evaluation on this patient on date of service 05/12/24. History, labs, imaging studies, and electronic medical record have been reviewed by me. This note documented by the []greenhouse grower [x]JULIO CESAR reflects my history, exam, and medical decision making. I have reviewed and agree with the care plan. Changes were made in the orders as necessary. ROS documentation was reviewed and negative unless otherwise stated in HPI. 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 Start low dose BB -cont home Sinemet -encourage pulm toilet, IS, up to chair. Cont PT/OT -endocrine following, insulin per their recs Total critical care time for this patient with life-threatening unstable organ failure, including direct patient contact, management of life support systems, review of data including imaging and labs, and discussions with other team members and physicians at least 35 minutes so far today, excluding procedures. Cardiothoracic Surgery/CCM Progress Note PATIENT NAME: Farhana Thrasher DATE: 05/12/24 HPI: Marcus Thrasher is a 84 y.o. male referred by Dr. Elder for CABG. Patient has history of CAD, carotid artery disease, dyslipidemia, DM, and Parkinsonism. Pt saw Cardiology on 03/23/24 and reported SOB and chest burning with exertion a month prior. Stress test was ordered which showed moderate size reversible perfusion defect of the lateral wall suggestive of ischemia. Echocardiogram was also completed which demonstrated mild to moderate mitral valve insufficiency. Pt then underwent a heart catheterization on 04/24/24 which demonstrated severe multivessel CAD. Seen Dr. Velasco in OP setting on 04/25/24, agreeable to CABG and underwent surgery on 05/10/24. Surgery/Procedure: 05/10/24: Dr. Velasco- CABGx3 (PADILLA-LAD, RSVG-OM1, RSVG-PDA with endarterectomy), LEVH, RAYMOND Interval History: 05/12/24, POD# 02. Afebrile, NSR on tele, BP stable, on RA and PAP at night. Weaned off of pressors, Mitchell removed. Pain tolerable, up walking with nursing. No acute issues noted. Objective: CT output cc/24hrs: 320 UO cc/24hrs: 1,505 Last BM Date: 05/09/24 Vitals: BP: 113/51, MAP (mmHg): 71, BP Method: Arterial line Heart Rate: 87 Resp: 15 Temp: 36.9 ?C (98.5 ?F), Temp Source: Temporal BMI (Calculated): 31.68 BMP: Recent Labs 05/10/24 1104 05/10/24 1348 05/10/24 1739 05/11/24 0459 05/12/24 0410 NA 139 141 143 140 137 K 3.6 3.1* 4.6 4.4 4.3 CL 111* 112* 115* 113* 107 CO2 22* 21* 19* 21* 22* BUN 17 17 16 14 18 CREATININE 0.84 0.89 0.84 0.80 0.82 CALCIUM 9.8 8.4* 8.2* 8.1* 8.4* MG 3.4* 2.6 -- 2.1 2.0 PHOS 3.4 4.0 -- -- -- CBC: Recent Labs 05/10/24 1348 05/10/24 1740 05/10/24200205/10/24 2210 05/11/24 0103 05/11/24 0730 05/12/24 0410 WBC 15.4* -- 8.8 -- -- -- 9.3 HGB 8.6* < > 7.3* < > 7.7* 7.9 7.5* HCT 26.0* -- 22.2* -- 23.7* -- 22.9* PLT 157 -- 110* -- -- -- 103* MCV 84.1 -- 85.7 -- -- -- 84.8 RDW 14.3 -- 14.3 -- -- -- 14.8 < > = values in this interval not displayed. INR: Recent Labs 05/10/24 1104 05/11/24 0459 05/12/24 0410 INR 1.3* 1.1 1.2* Physical Exam Vitals reviewed. Constitutional: General: He is not in acute distress. Appearance: He is not ill-appearing or diaphoretic. Neck: Comments: Central line. Cardiovascular: Rate and Rhythm: Normal rate and regular rhythm. Pulses: Normal pulses. Heart sounds: No murmur heard. Pulmonary: Effort: Pulmonary effort is normal. Breath sounds: No wheezing, rhonchi or rales. Comments: Diminished. Abdominal: General: There is no distension. Palpations: Abdomen is soft. Tenderness: There is no abdominal tenderness. Comments: Chest tubes. Genitourinary: Comments: Benavidez. Musculoskeletal: General: Swelling present. Skin: General: Skin is warm and dry. Capillary Refill: Capillary refill takes less than 2 seconds. Findings: Bruising present. Comments: Surgical incision without redness, warmth or drainage. Neurological: General: No focal deficit present. Mental Status: He is alert and oriented to person, place, and time. Assessment: CAD s/p CABG T2DM, A1c 7.4% Dyslipidemia Carotid artery disease Parkinsonism Malignant neoplasm of prostate s/p prostatectomy Post operative Pulm Management: Normal Post-o (more content not included)... Normal [facility] XR CHEST 1 VIEWon 05-12-2024 XR CHEST 1 VIEW Patient Name: FARHANA THRASHER : 1940 Exam Date/Time: 05/12/2024 08:24 Procedure: XR CHEST 1 VIEW Ordering Provider: HANDY KYLE Reason For Exam: Shortness of breath CHEST - PORTABLE: CLINICAL INDICATION: Shortness of breath TECHNIQUE: Portable AP COMPARISON: One day ago. IMPRESSION: FINDINGS/IMPRESSION: Limitations: Patient positioning/rotation Lines, tubes, and devices: Interval removal of Mitchell-Bárbara catheter with right IJ introducer sheath remaining. Mediastinal drain and chest tubes appear similar. Cardiomediastinal silhouette: Unchanged in appearance. Lungs/Pleura: Low lung volumes with mild bibasilar airspace disease new/progressed. Questional trace layering pleural effusions. No pneumothorax. Osseous structures: Unchanged in appearance. Soft tissues: No soft tissue abnormality is detected. Report Dictated on Electronically Signed By: Jason Singh MD Electronically Signed Date/Time: 05/12/2024 10:39 AM EDT Normal [facility] XR Chest Single viewon 05-12 [facility] Radiology Study observation (narrative) [facility] XR Chest Single viewOrdered By: Dickson Singh on 05-12-2024 [facility] Work Phone: 30on 05-11-2024 30 Problem: Knowledge Deficit Goal: Patient/family/caregi luz demonstrates understanding of disease process, treatment plan, medications, and discharge instructions Outcome: Progressing Problem: Potential for Compromised Skin Integrity Goal: Skin Integrity is Maintained or Improved Outcome: Progressing Goal: Nutritional status is improving Outcome: Progressing Problem: Urinary Incontinence Goal: Perineal skin integrity is maintained or improved Outcome: Progressing Problem: Problem Interventions Goal: Assess Nutritional Intake Outcome: Progressing Normal [facility] BASIC METABOLIC PANELon 04-23 Anion gap [Moles/Vol] 6 mmol/L Normal 3-13 [facility] Comment on above: Performed By: #### L [id number], [id number] ####Export Freight Clerk: DANIELLA PEREZ ([id number])[facility] [place] [address] Calcium [Mass/Vol] 8.1 mg/dL Low 8.8-10.0 [facility] Comment on above: Performed By: #### L [id number], [id number] ####Export Freight Clerk: DANIELLA PEREZ ([id number])[facility] [place] [address] Chloride [Moles/Vol] 113 mmol/L High 98-107 [facility] Comment on above: Performed By: #### L [id number], LAB15 ####Export Freight Clerk: DANIELLA PEREZ ([id number])[facility])[address] [place] [address] CO2 [Moles/Vol] 21 mmol/L Low 23-31 [facility] Comment on above: Performed By: #### L [id number], LAB15 ####Export Freight Clerk: DANIELLA PEREZ ([phone])[facility])[address] [place] [address] Creatinine [Mass/Vol] 0.80 mg/dL Normal 0.72-1.25 [facility] Comment on above: Performed By: #### L [id number], LAB15 ####Export Freight Clerk: DANIELLA PEREZ ([phone])[facility])[address] [place] [address] GLOMERULAR FILTRATION RATE ML/MIN/1.73 SQ M.PREDICTED 88.4 mL/min/1.73m*2 Normal >60.0 [facility] Comment on above: Result Comment: Calc ulation based on the Chronic Kidney Disease Epidemiology Collaboration (CKD-EPI) equation refit without adjustment for race Performed By: #### L [id number], LAB15 ####Export Freight Clerk: DANIELLA PEREZ ([phone])[facility] ([facility])[address] [place] [address] Glucose [Mass/Vol] 122 mg/dL High 82-115 [facility] Comment on above: Performed By: #### L [id number], LAB15 ####Export Freight Clerk: DANIELLA PEREZ ([phone])[facility])[address] [place] [address] Potassium [Moles/Vol] 4.4 mmol/L Normal 3.5-5.1 [facility] Comment on above: Result Comment: [facility] potassium values may be up to 0.5 mmol/L lower than serum values. Performed By: #### L [id number], LAB15 ####Export Freight Clerk: DANIELLA PEREZ ([id number])[facility] [place] [address] Sodium [Moles/Vol] 140 mmol/L Normal 136-145 [facility] Comment on above: Performed By: #### L [id number], LAB15 ####Export Freight Clerk: DANIELLA PEREZ ([id number])[facility])[address] [place] [address] Urea nitrogen [Mass/Vol] 14 mg/dL Normal 9-23 [facility] Comment on above: Performed By: #### L AB103, LAB15 ####Export Freight Clerk: DANIELLA PEREZ ([phone])[facility])[address] [place] [address] BLOOD GAS ARTERIALon 025 AMOUNT OF OXYGEN 4 Normal [facility] Comment on above: Order Comment: 30 mi n after vent changes Performed By: #### L [id number] ####Export Freight Clerk: DANIELLA PEREZ ([id number])[facility] ([facility])[address] [place] [address] Base excess Calc (Bld) [Moles/Vol] -2.8000 mmol/L Normal -3.0-3.0 [facility] Comment on above: Order Comment: 30 mi n after vent changes Performed By: #### L [id number] ####Export Freight Clerk: DANIELLA PEREZ ([phone])[facility])[address] [place] [address] CO2 [Moles/Vol] 22.7 mmol/L Low 23.0-27.0 [facility] Comment on above: Order Comment: 30 mi n after vent changes Performed By: #### L [id number] ####Export Freight Clerk: DANIELLA PEREZ ([phone])[facility])[address] [place] [address] HCO3 (Bld) [Moles/Vol] 21.6 mmol/L Normal 21.0-25.0 [facility] Comment on above: Order Comment: 30 mi n after vent changes Performed By: #### L [id number] ####Export Freight Clerk: DANIELLA PEREZ ([phone])[facility] [place] [address] Hemoglobin (Bld) [Mass/Vol] 7.9 g/dL Normal Screen only [facility] Comment on above: Order Comment: 30 mi n after vent changes Performed By: #### L [id number] ####Export Freight Clerk: DANIELLA PEREZ ([phone])[facility] ([facility])[address] [place] [address] OXYGEN SATURATION (%) IN ARTERIAL BLOOD 98.5 % Normal 95.0-100.0 [facility] Comment on above: Order Comment: 30 mi n after vent changes Performed By: #### L [id number] ####Export Freight Clerk: DANIELLA PEREZ ([phone])[facility] ([facility])[address] [place] [address] PCO2 ARTERIAL 35.5 mm Hg Normal >35.0-<45.0 [facility] Comment on above: Order Comment: 30 mi n after vent changes Performed By: #### L [id number] ####Export Freight Clerk: DANIELLA PEREZ ([id number])[facility] ([facility])[address] [place] [address] PH ARTERIAL 7.402 Normal 7.350-7.450 [facility] Comment on above: Order Comment: 30 mi n after vent changes Performed By: #### L [id number] ####Export Freight Clerk: DANIELLA PEREZ ([phone])[facility] ([facility])[address] [place] [address] PO2 ARTERIAL 157.0 mm Hg High 80.0-100.0 [facility] Comment on above: Order Comment: 30 mi n after vent changes Performed By: #### L [id number] ####Export Freight Clerk: DANIELLA PEREZ ([phone])[facility] ([facility])[address] [place] [address] SOURCE OF OXYGEN Nasal Cannula (LPM) Normal [facility] Comment on above: Order Comment: 30 mi n after vent changes Performed By: #### L [id number] ####Export Freight Clerk: DANIELLA PEREZ ([phone])[facility] ([facility])[address] [place] [address] Basic metabolic 1998 panelon 05-11-2024 Anion gap [Moles/Vol] 6 mmol/L 3 - 13 mmol/L [facility] Calcium [Mass/Vol] 8.1 mg/dL Low 8.8 - 10. 0 mg/dL [facility] Chloride [Moles/Vol] 113 mmol/L High 98 - 10 7 mmol/L [facility] CO2 [Moles/Vol] 21 mmol/L Low 23 - 31 mmol/L [facility] Creatinine [Mass/Vol] 0.8 mg/dL 0.72 - 1.25 mg/dL [facility] GFR/1.73 sq M.predicted (S/P/Bld) [Vol rate/Area] 88.4 mL/min - PINF [facility] Glucose [Mass/Vol] 122 mg/dL High 82 - 115 mg/dL [facility] Interpretation and review of laboratory results Abnormal [facility] Potassium [Moles/Vol] 4.4 mmol/L 3.5 - 5.1 mmol/L [facility] Sodium [Moles/Vol] 140 mmol/L 136 - 145 mmol/L [facility] Urea nitrogen [Mass/Vol] 14 mg/dL 9 - 23 mg/dL [facility] CALCIUM, IONIZEDon CALCIUM IONIZED 4.00 mg/dL Low 4.30-5.20 [facility] Comment on above: Order Comment: Obtai n PRN and check ionized Ca level if serum Ca level less than 8.0 Performed By: #### L [id number] ####Export Freight Clerk: DANIELLA PEREZ ([phone])[facility] ([facility])[address] [place] [address] PH, IONIZED CALCIUM 7.43 Normal 7.31-7.46 [facility] Comment on above: Order Comment: Obtai n PRN and check ionized Ca level if serum Ca level less than 8.0 Performed By: #### L [id number] ####Export Freight Clerk: DANIELLA PEREZ ([phone])[facility] ([facility])[address] [place] [address] Calcium.ionized [Moles/Vol]O rdered By: Carlos Curiel on 05-11-2024 Calcium.ionized (Bld) [Moles/Vol] 4 mg/dL Low 4.30 - 5.20 mg/dL [facility] Interpretation and review of laboratory results Abnormal [facility] PH, IONIZED CALCIUM 7.43 7.31 - 7.46 [facility] ECG 12-LEADon 05-11-2024 ECG 12-LEAD IMPRESSION: Sinus rhythm 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 Electronically Signed On 05-11-2024 12:29:06 EDT by [facility] ECG 12-LEAD IMPRESSION: Sinus rhythm RBBB and LAFB Minimal ST elevation, anterolateral leads Electronically Signed On 05-11-2024 09:12:22 EDT by [facility] HEMOGLOBIN AND HEMATOCRIT, B LOODon 05-11-2024 Hematocrit (Bld) [Volume fraction] 23.7 % Low 40.0-52.0 [facility] Comment on above: Order Comment: Recom mend 1 hour post transfusion Performed By: #### L [id number] ####Export Freight Clerk: DANIELLA PEREZ ([phone])[facility] ([facility])[address] [place] [address] Hemoglobin (Bld) [Mass/Vol] 7.7 g/dL Low 13.0-18.0 [facility] Comment on above: Order Comment: Recom mend 1 hour post transfusion Performed By: #### L [id number] ####Export Freight Clerk: DANIELLA PEREZ ([phone])[facility] ([facility])[address] [place] [address] Hemoglobin (Bld) [Mass/Vol]O rdered By: Charles Gordon on 05-11-2024 Hematocrit (Bld) [Volume fraction] 23.7 % Low 40.0 - 52.0 % [facility] Interpretation and review of laboratory results Abnormal [facility] Laboratory - Chemistry and C hemistry - challengeon 05-11-2024 Glucose [Mass/Vol] 192 mg/dL High 70 - 100 mg/dL [facility] Glucose [Mass/Vol] 137 mg/dL High 70 - 100 mg/dL [facility] Glucose [Mass/Vol] 127 mg/dL High 70 - 100 mg/dL [facility] Glucose [Mass/Vol] 150 mg/dL High 70 - 100 mg/dL [facility] Glucose [Mass/Vol] 128 mg/dL High 70 - 100 mg/dL [facility] Glucose [Mass/Vol] 148 mg/dL High 70 - 100 mg/dL [facility] Glucose [Mass/Vol] 137 mg/dL High 70 - 100 mg/dL [facility] Glucose [Mass/Vol] 96 mg/dL 70 - 100 mg/dL [facility] Magnesium [Mass/Vol] 2.1 mg/dL 1.6 - 2 .6 mg/dL [facility] Glucose [Mass/Vol] 122 mg/dL High 70 - 100 mg/dL [facility] Glucose [Mass/Vol] 132 mg/dL High 70 - 100 mg/dL [facility] Glucose [Mass/Vol] 149 mg/dL High 70 - 100 mg/dL [facility] Glucose [Mass/Vol] 151 mg/dL High 70 - 100 mg/dL [facility] Glucose [Mass/Vol] 148 mg/dL High 70 - 100 mg/dL [facility] Glucose [Mass/Vol] 183 mg/dL High 70 - 100 mg/dL [facility] Laboratory - Chemistry and C hemistry - challengeOrdered By: Jose Seth on 05-11-2024 Base excess Calc (Bld) [Moles/Vol] -2.8000 mmol/L -3.0 - 3.0 mmol/L [facility] CO2 (Bld) [Partial pressure] 35.5 mm[Hg] - PINF [facility] CO2 [Moles/Vol] 22.7 mmol/L Low 23.0 - 27.0 mmol/L [facility] HCO3 (Bld) [Moles/Vol] 21.6 mmol/L 21.0 - 25.0 mmol/L [facility] Oxygen (Bld) [Partial pressure] 157 mm[Hg] High [facility] pH (Bld) 7.402 [pH] 7.350 - 7.450 [facility] Laboratory - Coagulationon 0 05-11-2024 aPTT Coag (PPP) [Time] 36.9 s High 20.0 - 30.5 s [facility] INR Coag (PPP) [Relative time] 1.1 {INR} 0.9 - 1.1 [facility] PT Coag (Bld) [Time] 12.7 s High 9.0 - 1 2.0 s [facility] Laboratory - Hematology and Cell countsOrdered By: Jose Seth on 05-11-2024 Hemoglobin (Bld) [Mass/Vol] 7.9 g/dL Screen only [facility] Laboratory - Hematology and Cell countsOrdered By: Charles Gordon on 05-11-2024 Hemoglobin (Bld) [Mass/Vol] 7.7 g/dL Low 13.0 - 18.0 g/dL [facility] MAGNESIUMon 05-11-2024 Magnesium [Mass/Vol] 2.1 mg/dL Normal 1.6-2.6 [facility] Comment on above: Result Comment: JEAN CARLOS Nuñez COMMENTS: Higher values can be expected in females during menses. Performed By: #### L [id number], [id number] ####Export Freight Clerk: DANIELLA PEREZ ([id number])[facility] ([address] Magnesium [Mass/Vol]on 05-11 Interpretation and review of laboratory results Normal [facility] No Panel Informationon 05-11 Interpretation and review of laboratory results Abnormal [facility] Interpretation and review of laboratory results Abnormal [facility] Interpretation and review of laboratory results Abnormal [facility] Interpretation and review of laboratory results Abnormal [facility] P Craig 25 degrees [facility] NE Interval 182 ms [facility] QRS Craig -46 degrees [facility] QRSD Interval 130 ms [facility] QT Interval 397 ms [facility] QTC Interval 435 ms [facility] T Wave Craig 39 degrees [facility] CV EPIPHANY [facility] Interpretation and review of laboratory results Abnormal [facility] Interpretation and review of laboratory results Abnormal [facility] Interpretation and review of laboratory results Normal [facility] Interpretation and review of laboratory results Abnormal [facility] Interpretation and review of laboratory results Abnormal [facility] Interpretation and review of laboratory results Abnormal [facility] Interpretation and review of laboratory results Abnormal [facility] Interpretation and review of laboratory results Abnormal [facility] Interpretation and review of laboratory results Abnormal [facility] Interpretation and review of laboratory results Abnormal [facility] No Panel InformationOrdered By: Lalit Fabian on 05-11-2024 P Craig 13 degrees [facility] Work Phone: NE Interval 194 ms [facility] Work Phone: QRS Craig -61 degrees [facility] Work Phone: QRSD Interval 163 ms [facility] Work Phone: QT Interval 477 ms [facility] Work Phone: QTC Interval 511 ms [facility] Work Phone: T Wave Craig 68 degrees [facility] Work Phone: [facility] Work Phone: No Panel InformationOrdered By: Jose Seth on 05-11-2024 Amount Of Oxygen 4 [facility] alth Interpretation and review of laboratory results Abnormal [facility] Source Of Oxygen Nasal Cannula (LPM) [facility] PROTIME AND APTTon aPTT Coag (Bld) [Time] 36.9 s High 20.0-30.5 [facility] Comment on above: Performed By: #### L [id number] ####Export Freight Clerk: DANIELLA PEREZ ([phone])[facility])[address] [place] [address] INR Coag (PPP) [Relative time] 1.1 {INR} Normal 0.9-1.1 [facility] Comment on above: Performed By: #### L [id number] ####Export Freight Clerk: DANIELAL PEREZ ([phone])[facility])[address] [place] [address] PT Coag (PPP) [Time] 12.7 s High 9.0-12.0 [facility] Comment on above: Performed By: #### L [id number] ####Export Freight Clerk: DANIELLA [id number])[facility] ([facility])[address] [place] [address] Progress Noteon 05-11-2024 Progress Note - Attestation signed by Lilian Cisse MD at 05/11/2024 12:36 PM I have personally performed a face to face diagnostic evaluation on this patient. In addition, I have reviewed the resident's/AUTOMOTIVE SERVICE WRITER/FOOTBALL PAD REPAIRER's care plan and agree with those findings I have performed a substantive portion of the the medical decision making. My findings are as follows: Extubated Being weaned off pressors Insulin drip rate 1.5 units/h Patient reported diagnosis of diabetes more than 20 years ago on Soliqua, metformin, Jardiance Has a glucometer that he checks his blood sugar readings and ranges 120s to 170s No frequent hypoglycemia Vitals: BP (!) 144/66 Pulse 70 Temp 36.7 ?C (98 ?F) (Temporal) Resp 16 Ht 5' 7 (1.702 m) Wt 214 lb 4.6 oz (97.2 kg) SpO2 100% BMI 33.56 kg/m? Respiratory: No respiratory distress Cardiovascular System:o lower extremity edema Abdomen: obese A/P Type 2 diabetes with hyperglycemia with long-term insulin use Type 2 diabetes with cardiac complication Body mass index is 33.05 kg/m?. Recommend Lantus 24 units once then discontinue insulin drip after 1 hour Lantus 18 units every morning starting tomorrow Humalog 6 units before meals with medium dose correction Discussed the case with his nurse Most likely patient will be discharged on his home regimen for diabetes as long as there is no contraindication I spent 35 minutes with the pt which involved in coordination of care, medical evaluation, review of records, and/or counseling of the pt regarding the condition/disease state/prognosis on the date of this note. Old records including available PCP, ED notes and or other specialists notes are reviewed. LABs and/or imaging are reviewed as detailed in the resident's/AUTOMOTIVE SERVICE WRITER/FOOTBALL PAD REPAIRER's note Department of Internal Medicine Division of Endocrinology, Diabetes, & Metabolism Endocrinology Note Patient Name: Farhana Thrasher : 1940 AGE: 84 y.o. Room/Bed: T1-116/T1-116 A Admission Date: 05/10/2024 Visit Date: 05/11/2024 Reason for Endocrine Consult: post op heart Provider/Team Requesting Consult: CTS PCP: KELSEY MOON MD Outpt Flow Match Sofa Cutter: No ASSESSMENT: DM2 with hyperglycemia and fci insulin Stress hyperglycemia CABGX3 HLD/CAD Obesity Body mass index is 33.56 kg/m?. PLAN: Give Lantus 24 units x 1 now, stop insulin drip 1 hour Start Lantus 18 units daily AM starting tomorrow Start Humalog Start Humalog medium scale ICU goal <180 GMF goal <150 POCT BG ACHS Hypoglycemia management per protocol Carb controlled diet ANTICIPATED ENDOCRINE HOME GOING RECOMMENDATIONS: Optimized for Discharge from Endocrine standpoint: No Home Going Endocrine Rx Recommendations-- Tbd- if no CI resume home regimen Soliqua pen Jardiance home dose Metformin home dose Outpt Follow Up-- Can offer SUBJECTIVE/HPI: CHIEF COMPLAINT: No chief complaint on file. S/p CABGx3 Noted hx of DM2 in chart review BGL below-stable In bed Insulin drip 1.5/h Extubated 02 nc VSS Up in chair, awake alert Confirmed home diabetes regimen and history Sees PCP for diabetes uses a glucometer usually blood sugars are 170s at home Has all home supplies No nausea or vomiting Levo still on Has not yet eaten only water Spoke with nursing Type of DM: 2 Onset of DM: Over 40 years Home DM Medication Regimen: per chart-Soliqua pen 100/33 at 45 units daily am, jardiance 25 mg po daily, metformin 1 g po bid DM control (last A1c/glucose data): Lab Results Component Value Date HGBA1C 7.4 (H) 05/04/2024 Glucose Date/Time Value Ref Range Status 05/11/2024 07:05 AM 137 (H) 70 - 100 mg/dL Final 05/11/2024 06:15 AM 96 70 - 100 mg/dL Final 05/11/2024 05:04 AM 122 (H) 70 - 100 mg/dL Final 05/11/2024 04:14 AM 132 (H) 70 - 100 mg/dL Final 05/11/2024 03:28 AM 149 (H) 70 - 100 mg/dL Final 05/11/2024 02:18 AM 151 (H) 70 - 100 mg/dL Final Review of Systems Unable to perform ROS: Intubated ROS negative except for those mentioned in HPI. OBJECTIVE: Vitals: 05/11/24 0745 05/11/24 0800 05/11/24 0815 05/11/24 0832 BP: Pulse: 70 66 69 Resp: 16 13 17 Temp: TempSrc: SpO2: Weight: Height: 5' 7 (1.702 m) Physical Exam Vitals and nursing note reviewed. Constitutional: General: He is awake. He is not in acute distress. Appearance: He is obese. He is ill-appearing. He is not toxic-appearing. Interventions: Nasal cannula in place. HENT: Head: Normocephalic. Mouth/Throat: Mouth: Mucous membranes are moist. Cardiovascular: Rate and Rhythm: Normal rate. Pulmonary: Effort: Pulmonary effort is normal. No respiratory distress. Abdominal: Tenderness: There is no guarding. Skin: General: Skin is warm and dry. Coloration: Skin is pale. Comments: (more content not included)... Normal [facility] Progress Note - Attestation signed by Luz Hough DO at 05/11/2024 5:59 PM I have personally performed a [id number] diagnostic evaluation on this patient on date of service 05/11/24. History, labs, imaging studies, and electronic medical record have been reviewed by me. This note documented by the []greenhouse grower [x]JULIO CESAR reflects my history, exam, and medical decision making. I have reviewed and agree with the care plan. Changes were made in the orders as necessary. ROS documentation was reviewed and negative unless otherwise stated in HPI. Assessment: -mvCAD s/p CABGx3 POD 1 -acute post op pulmonary management: expected course -acute post op blood loss anemia, consumptive thrombocytopenia -mild carotid artery disease -DM2 with hyperglycemia (A1c 7.4) -Parkinson's disease -hypocalcemia -hx Prostate CA s/p prostatectomy Plan: -cont supplemental 02, wean as able -wean levophed as able to maintain MAP>65 -start ASA and statin -cont home Sinemet -encourage pulm toilet, IS, up to chair -endocrine following, insulin per their recs Total critical care time for this patient with life-threatening unstable organ failure, including direct patient contact, management of life support systems, review of data including imaging and labs, and discussions with other team members and physicians at least 33 minutes so far today, excluding procedures. Cardiothoracic Surgery/CCM Progress Note PATIENT NAME: Farahna Thrasher DATE: 05/11/24 HPI: Marcus Thrasher is a 84 y.o. male referred by Dr. Elder for CABG. Patient has history of CAD, carotid artery disease, dyslipidemia, DM, and Parkinsonism. Pt saw Cardiology on 03/23/24 and reported SOB and chest burning with exertion a month prior. Stress test was ordered which showed moderate size reversible perfusion defect of the lateral wall suggestive of ischemia. Echocardiogram was also completed which demonstrated mild to moderate mitral valve insufficiency. Pt then underwent a heart catheterization on 04/24/24 which demonstrated severe multivessel CAD. Seen Dr. Velasco in OP setting on 04/25/24, agreeable to CABG and underwent surgery on 05/10/24. Surgery/Procedure: 05/10/24: Dr. Velasco- CABGx3 (PADILLA-LAD, RSVG-OM1, RSVG-PDA with endarterectomy), LEVH, RAYMOND Interval History: 05/11/24, POD# 01: Afebrile, NSR on tele, BP requiring low dose pressor support, extubated post-op and now on 2L NC. Received >2L fluids since OR. Pain tolerable. Current IV Drips: Insulin-1.5units/hr Norepinephrine- 0.02mcg/kg/min A-line: Arterial Line BP 1: 138/39 Invasive Hemodynamic Monitoring Blood Temperature: 37.3 ?C (99.1 ?F) PAP: 17/ PAP (Mean): 11 mmHg CVP (mmHg): 3 mmHg CO (L/min): 7.73 L/min CI (L/min/m2): 3.73 L/min/m2 Objective: CT output cc/24hrs: 780 UO cc/24hrs: 2,397 Last BM Date: 05/09/24 Vitals: BP: (!) 144/66, MAP (mmHg): 92, BP Method: Arterial line Heart Rate: 71 Resp: 15 Temp: 37.2 ?C (99 ?F), Temp Source: Core BMI (Calculated): 33.04 BMP: Recent Labs 05/10/24 1104 05/10/24 1348 05/10/24 1739 05/11/24 0459 NA 139 141 143 140 K 3.6 3.1* 4.6 4.4 CL 111* 112* 115* 113* CO2 22* 21* 19* 21* BUN 17 17 16 14 CREATININE 0.84 0.89 0.84 0.80 CALCIUM 9.8 8.4* 8.2* 8.1* MG 3.4* 2.6 -- 2.1 PHOS 3.4 4.0 -- -- CBC: Recent Labs 05/10/24 1104 05/10/24 1105 05/10/24 1348 05/10/24 1740 05/10/24200205/10/24 2210 05/11/24 0103 WBC 11.3* -- 15.4* -- 8.8 -- -- HGB 7.9* < > 8.6* < > 7.3* 8.9 7.7* HCT 24.9* -- 26.0* -- 22.2* -- 23.7* PLT 124* -- 157 -- 110* -- -- MCV 86.5 -- 84.1 -- 85.7 -- -- RDW 14.0 -- 14.3 -- 14.3 -- -- < > = values in this interval not displayed. INR: Recent Labs 05/10/24 1104 05/11/24 0459 INR 1.3* 1.1 Physical Exam Vitals reviewed. Constitutional: General: He is not in acute distress. Appearance: He is not ill-appearing or diaphoretic. Neck: Comments: Central line and Mitchell. Cardiovascular: Rate and Rhythm: Normal rate and regular rhythm. Pulses: Normal pulses. Heart sounds: No murmur heard. Pulmonary: Effort: Pulmonary effort is normal. Breath sounds: No wheezing, rhonchi or rales. Comments: Diminished d/t shallow breaths, on NC. Abdominal: General: There is no distension. Palpations: Abdomen is soft. Tenderness: There is no abdominal tenderness. Comments: Chest tubes. Genitourinary: Comments: Benavidez. Musculoskeletal: General: Swelling present. Skin: General: Skin is warm and dry. Capillary Refill: Capillary refill takes less than 2 seconds. Findings: Bruising present. Comments: Surgical incision covered by dressing. No drainage noted. Neurological: General: No focal deficit p (more content not included)... Normal [facility] TYLOR CARDIAC PANELon 2024 HEPTEM A10 51 mm Normal 51-72 [facility] Comment on above: Performed By: #### L [id number] ####Export Freight Clerk: DANIELLA PEREZ ([id number])[facility] ([facility])[address] [place] [address] HEPTEM A20 57 mm Normal 51-72 [facility] Comment on above: Performed By: #### L [id number] ####Export Freight Clerk: DANIELLA PEREZ ([phone])[facility] BLOOD [facility] ([facility])[address] [place] [address] HEPTEM ALPHA 68 DEGREES Low 70-81 [facility] Comment on above: Performed By: #### L [id number] ####Export Freight Clerk: DANIELLA PEREZ ([id number])[facility] ([facility])[address] [place] [address] HEPTEM CLOT FORMATION TIME 114 s High 45-110 [facility] Comment on above: Performed By: #### L [id number] ####Export Freight Clerk: DANIELLA PEREZ ([id number])[facility] ([facility])[address] [place] [address] [place] HEPTEM CLOTTING TIME 170 s Normal 122-208 [facility] Comment on above: Performed By: #### L [id number] ####Export Freight Clerk: DANIELLA PREEZ ([phone])[facility] ([facility])[address] [place] [address] HEPTEM MAXIMUM CLOT FIRMNESS 57 mm Normal 51-72 [facility] Comment on above: Performed By: #### L [id number] ####Export Freight Clerk: DANIELLA PEREZ ([phone])[facility] ([facility])[address] [place] [address] [place] INTEM A10 50 mm Low 51-72 [facility] Comment on above: Performed By: #### L [id number] ####Export Freight Clerk: DANIELLA PEREZ ([phone])[facility] ([facility])[address] [place] [address] [place] INT[place] A20 56 mm Normal 51-72 [facility] Comment on above: Performed By: #### L [id number] ####Export Freight Clerk: DANIELLA PEREZ ([phone])[facility] ([facility])[address] [place] [address] [place] INTEM ALPHA 70 DEGREES Normal 70-81 [facility] Comment on above: Performed By: #### L [id number] ####Export Freight Clerk: DANIELLA PEREZ ([phone])[facility] ([facility])[address] [place] [address] [place] INT[place] CLOT FORMATION TIME 103 s Normal 45-110 [facility] Comment on above: Performed By: #### L [id number] ####Export Freight Clerk: DANIELLA PEREZ ([phone])[facility] ([facility])[address] [place] [address] INTEM CLOTTING TIME 198 s Normal 122-208 [facility] Comment on above: Performed By: #### L [id number] ####Export Freight Clerk: DANIELLA PEREZ ([phone])[facility] ([facility])[address] [place] [address] INTEM MAXIMUM CLOT FIRMNESS 57 mm Normal 51-72 [facility] Comment on above: Performed By: #### L [id number] ####Export Freight Clerk: DANIELLA PEREZ ([phone])[facility] ([facility])[address] [place] [address] Thromboelastography after ad dtion of heparinase panel (Bld)Ordered By: Ca Delarosa on 05-11-2024 Clot formation.intrinsic coagulation system activated Rotational TEG (Bld) [Time] 198 s 122 - 208 s [facility] Clot formation.intrinsic coagulation system activated Rotational TEG (Bld) [Time] 103 s 45 - 110 s [facility] Clot formation.intrinsic coagulation system activated Rotational TEG (Bld) [Time] 70 [facility] Clot formation.intrinsic coagulation system activated Rotational TEG (Bld) [Time] 50 mm Low 51 - 72 mm [facility] Clot formation.intrinsic coagulation system activated Rotational TEG (Bld) [Time] 56 mm 51 - 72 mm [facility] Clot formation.intrinsic coagulation system activated Rotational TEG (Bld) [Time] 57 mm 51 - 72 mm [facility] Clot formation.intrinsic coagulation system activated.heparin insensitive Rotational TEG (Bld) [Time] 170 s 122 - 208 s [facility] Clot formation.intrinsic coagulation system activated.heparin insensitive Rotational TEG (Bld) [Time] 114 s High 45 - 110 s [facility] Clot formation.intrinsic coagulation system activated.heparin insensitive Rotational TEG (Bld) [Time] 68 Low [facility] Clot formation.intrinsic coagulation system activated.heparin insensitive Rotational TEG (Bld) [Time] 51 mm 51 - 72 mm [facility] Clot formation.intrinsic coagulation system activated.heparin insensitive Rotational TEG (Bld) [Time] 57 mm 51 - 72 mm [facility] Interpretation and review of laboratory results Abnormal [facility] Maximum clot firmness after addition of heparinase TEG (Bld) [Length] 57 mm 51 - 72 mm [facility] Vital signsOrdered By: Richi Fabian on 05-11-2024 Heart rate 71 /min bpm [facility] Work Phone: Vital signson 05-11-2024 Heart rate 72 /min bpm [facility] XR CHEST 1 VIEWon 05-11-2024 XR CHEST 1 VIEW [facility] Name[facility] 1940 [id number] Exam Date/Time: 05/11/2024 05:30 Procedure: XR CHEST 1 VIEW Ordering Provider: HANDY KYLE Reason For Exam: Shortness of breath CHEST - PORTABLE: CLINICAL INDICATION: Respiratory distress for follow up TECHNIQUE: Portable AP COMPARISON: One day ago FINDINGS: Tubes, lines and devices: Right Mitchell-Bárbara catheter with its tip in the region of the right pulmonary artery. Additional mediastinal drain. Endotracheal tube and nasogastric tube have been removed. Left chest tube Heart/Mediastinum: Unchanged Lungs/Pleura: No new consolidation or atelectasis. Costophrenic angles are sharp. IMPRESSION: Endotracheal tube and nasogastric tube removed. No new consolidation or atelectasis Report Dictated on Electronically Signed By: Barron Long MD Electronically Signed Date/Time: 05/11/2024 8:19 AM EDT Normal [facility] XR Chest Single viewon 05-11 [facility] Radiology Study observation (narrative) [facility] XR Chest Single viewOrdered By: Barron Long on 05-11-2024 [facility] Work Phone: BASIC METABOLIC PANELon 04-22 Anion gap [Moles/Vol] 9 mmol/L Normal 3-13 [facility] Comment on above: Performed By: #### L [id number] ####Export Freight Clerk: DANIELLA PEREZ ([phone])[facility] [place] [address] Calcium [Mass/Vol] 8.2 mg/dL Low 8.8-10.0 [facility] Comment on above: Performed By: #### L [id number] ####Export Freight Clerk: DANIELLA PEREZ ([phone])[facility] [place] [address] Chloride [Moles/Vol] 115 mmol/L High 98-107 [facility] Comment on above: Performed By: #### L AB15 ####Export Freight Clerk: DANIELLA PEREZ ([phone])[facility] ([facility])[address] [place] [address] CO2 [Moles/Vol] 19 mmol/L Low 23-31 [facility] Comment on above: Performed By: #### L [id number] ####Export Freight Clerk: DANIELLA PEREZ ([phone])[facility] ([facility])[address] [place] [address] Creatinine [Mass/Vol] 0.84 mg/dL Normal 0.72-1.25 [facility] Comment on above: Performed By: #### L AB15 ####Export Freight Clerk: DANIELLA PEREZ ([phone])[facility] ([facility])[address] [place] [address] GLOMERULAR FILTRATION RATE ML/MIN/1.73 SQ M.PREDICTED 87.1 mL/min/1.73m*2 Normal >60.0 [facility] Comment on above: Result Comment: Calc ulation based on the Chronic Kidney Disease Epidemiology Collaboration (CKD-EPI) equation refit without adjustment for race Performed By: #### L [id number] ####Export Freight Clerk: DANIELLA PEREZ ([phone])[facility] ([facility])[address] [place] [address] [place] Glucose [Mass/Vol] 146 mg/dL High 82-115 [facility] Comment on above: Performed By: #### L AB15 ####Export Freight Clerk: DANIELLA PEREZ ([phone])[facility] ([facility])[address] Potassium [Moles/Vol] 4.6 mmol/L Normal 3.5-5.1 [facility] Comment on above: Result Comment: [facility] potassium values may be up to 0.5 mmol/L lower than serum values. Performed By: #### L AB15 ####Export Freight Clerk: DANIELLA PEREZ ([phone])[facility] ([facility])[address] [place] [address] Sodium [Moles/Vol] 143 mmol/L Normal 136-145 [facility] Comment on above: Performed By: #### L AB15 ####Export Freight Clerk: DANIELLA PEREZ ([phone])[facility] ([facility])[address] [place] [address] Urea nitrogen [Mass/Vol] 16 mg/dL Normal 9-23 [facility] Comment on above: Performed By: #### L AB15 ####Export Freight Clerk: DANIELLA PEREZ ([phone])[facility] ([facility])[address] [place] [address] Anion gap [Moles/Vol] 6 mmol/L Normal 3-13 [facility] Comment on above: Performed By: #### L AB113, [id number], LAB15 ####Export Freight Clerk: DANIELLA PEREZ ([phone])[facility] ([facility])[address] [place] [address] Calcium [Mass/Vol] 9.8 mg/dL Normal 8.8-10.0 [facility] Comment on above: Performed By: #### L AB113, [id number], LAB15 ####Export Freight Clerk: DANIELLA PEREZ ([phone])[facility] [place] [address] [place] Chloride [Moles/Vol] 111 mmol/L High 98-107 [facility] Comment on above: Performed By: #### L AB113, [id number], LAB15 ####Export Freight Clerk: DANIELLA PEREZ ([phone])[facility] ([facility])[address] [place] [address] [place] CO2 [Moles/Vol] 22 mmol/L Low 23-31 [facility] Comment on above: Performed By: #### L AB113, [id number], LAB15 ####Export Freight Clerk: DANIELLA PEREZ ([phone])[facility] [place] [address] Creatinine [Mass/Vol] 0.84 mg/dL Normal 0.72-1.25 [facility] Comment on above: Performed By: #### Verito AB113, [id number], LAB15 ####Export Freight Clerk: DANIELLA PEREZ ([phone])[facility] ([facility])[address] [place] [address] GLOMERULAR FILTRATION RATE ML/MIN/1.73 SQ M.PREDICTED 87.1 mL/min/1.73m*2 Normal >60.0 [facility] Comment on above: Result Comment: Calc ulation based on the Chronic Kidney Disease Epidemiology Collaboration (CKD-EPI) equation refit without adjustment for race Performed By: #### Verito ABAnnamaria, [id number], LAB15 ####Export Freight Clerk: DANIELLA PEREZ ([phone])[facility] ([facility])[address] [place] [address] Glucose [Mass/Vol] 144 mg/dL High 82-115 [facility] Comment on above: Performed By: #### L AB113, [id number], LAB15 ####Export Freight Clerk: DANIELLA PEREZ ([phone])[facility])[address] [place] [address] Potassium [Moles/Vol] 3.6 mmol/L Normal 3.5-5.1 [facility] Comment on above: Result Comment: [facility] potassium values may be up to 0.5 mmol/L lower than serum values. Performed By: #### L AB113, [id number], LAB15 ####Export Freight Clerk: DANIELLA PEREZ ([phone])[facility])[address] [place] [address] Sodium [Moles/Vol] 139 mmol/L Normal 136-145 [facility] Comment on above: Performed By: #### L AB113, [id number], LAB15 ####Export Freight Clerk: DANIELLA PEREZ ([phone])[facility] ([facility])[address] [place] [address] Urea nitrogen [Mass/Vol] 17 mg/dL Normal 9-23 [facility] Comment on above: Performed By: #### L AB113, [id number], LAB15 ####Export Freight Clerk: DANIELLA PEREZ ([phone])[facility] ([facility])[address] [place] [address] BLOOD GAS ARTERIALon 025 AMOUNT OF OXYGEN 2lt Normal [facility] Comment on above: Order Comment: 30 mi n after vent changes Performed By: #### L [id number] ####Export Freight Clerk: DANIELLA PEREZ ([phone])[facility] ([facility])[address] [place] [address] Base excess Calc (Bld) [Moles/Vol] -2.5000 mmol/L Normal -3.0-3.0 [facility] Comment on above: Order Comment: 30 mi n after vent changes Performed By: #### L [id number] ####Export Freight Clerk: DANIELLA PEREZ ([phone])[facility] ([facility])[address] [place] [address] CO2 [Moles/Vol] 23.1 mmol/L Normal 23.0-27.0 [facility] Comment on above: Order Comment: 30 mi n after vent changes Performed By: #### L [id number] ####Export Freight Clerk: DANIELLA PEREZ ([phone])[facility] ([facility])[address] [place] [address] HCO3 (Bld) [Moles/Vol] 22.0 mmol/L Normal 21.0-25.0 [facility] Comment on above: Order Comment: 30 mi n after vent changes Performed By: #### L [id number] ####Export Freight Clerk: DANIELLA PEREZ ([phone])[facility] ([facility])[address] [place] [address] Hemoglobin (Bld) [Mass/Vol] 8.9 g/dL Normal Screen only [facility] Comment on above: Order Comment: 30 mi n after vent changes Performed By: #### L [id number] ####Export Freight Clerk: DANIELLA PEREZ ([phone])[facility] ([facility])[address] [place] [address] OXYGEN SATURATION (%) IN ARTERIAL BLOOD 98.2 % Normal 95.0-100.0 [facility] Comment on above: Order Comment: 30 mi n after vent changes Performed By: #### L [id number] ####Export Freight Clerk: DANIELLA PEREZ ([phone])[facility] [place] [address] PCO2 ARTERIAL 36.3 mm Hg Normal >35.0-<45.0 [facility] Comment on above: Order Comment: 30 mi n after vent changes Performed By: #### L [id number] ####Export Freight Clerk: DANIELLA PEREZ ([phone])[facility] ([facility])[address] [place] [address] PH ARTERIAL 7.400 Normal 7.350-7.450 [facility] Comment on above: Order Comment: 30 mi n after vent changes Performed By: #### L [id number] ####Export Freight Clerk: DANIELLA PEREZ ([phone])[facility] ([facility])[address] [place] [address] PO2 ARTERIAL 123.3 mm Hg High 80.0-100.0 [facility] Comment on above: Order Comment: 30 mi n after vent changes Performed By: #### L [id number] ####Export Freight Clerk: DANIELLA PEREZ ([phone])[facility] ([facility])[address] [place] [address] SOURCE OF OXYGEN Nasal Cannula (LPM) Normal [facility] Comment on above: Order Comment: 30 mi n after vent changes Performed By: #### L [id number] ####Export Freight Clerk: DANIELLA PEREZ ([phone])[facility] ([facility])[address] [place] [address] AMOUNT OF OXYGEN [address] [facility] Comment on above: Performed By: #### L [id number] ####Export Freight Clerk: DANIELLA PEREZ ([phone])[facility] ([facility])[address] [place] [address] Base excess Calc (Bld) [Moles/Vol] -3.0000 mmol/L Normal -3.0-3.0 [facility] Comment on above: Performed By: #### L [id number] ####Export Freight Clerk: DANIELLA PEREZ ([phone])[facility] ([facility])[address] [place] [address] CO2 [Moles/Vol] 22.9 mmol/L Low 23.0-27.0 [facility] Comment on above: Performed By: #### L [id number] ####Export Freight Clerk: DANIELLA PEREZ ([phone])[facility] ([facility])[address] [place] [address] HCO3 (Bld) [Moles/Vol] 21.7 mmol/L Normal 21.0-25.0 [facility] Comment on above: Performed By: #### L [id number] ####Export Freight Clerk: DANIELLA PEREZ ([phone])[facility] ([facility])[address] [place] [address] Hemoglobin (Bld) [Mass/Vol] 7.3 g/dL Normal Screen only [facility] Comment on above: Performed By: #### L [id number] ####Export Freight Clerk: DANIELLA PEREZ ([phone])[facility] ([facility])[address] [place] [address] OXYGEN SATURATION (%) IN ARTERIAL BLOOD 97.1 % Normal 95.0-100.0 [facility] Comment on above: Performed By: #### L [id number] ####Export Freight Clerk: DANIELLA PEREZ ([phone])[facility] ([facility])[address] [place] [address] PCO2 ARTERIAL 37.3 mm Hg Normal >35.0-<45.0 [facility] Comment on above: Performed By: #### L [id number] ####Export Freight Clerk: DANIELLA PEREZ ([phone])[facility] ([facility])[address] [place] [address] PH ARTERIAL 7.383 Normal 7.350-7.450 [facility] Comment on above: Performed By: #### L [id number] ####Export Freight Clerk: DANIELLA PEREZ ([phone])[facility] ([facility])[address] [place] [address] PO2 ARTERIAL 117.0 mm Hg High 80.0-100.0 [facility] Comment on above: Performed By: #### L [id number] ####Export Freight Clerk: DANIELLA PEREZ ([phone])[facility] ([facility])[address] [place] [address] SOURCE OF OXYGEN Nasal Cannula (LPM) Normal [facility] Comment on above: Performed By: #### L [id number] ####Export Freight Clerk: DANIELLA PEREZ ([phone])[facility])[address] [place] [address] AMOUNT OF OXYGEN 50 Normal [facility] Comment on above: Performed By: #### L AB76 ####Export Freight Clerk: DANIELLA PEREZ ([phone])[facility] ([facility])[address] [place] [address] Base excess Calc (Bld) [Moles/Vol] -6.1000 mmol/L Low -3.0-3.0 [facility] Comment on above: Performed By: #### L AB76 ####Export Freight Clerk: DANIELLA PEREZ ([phone])[facility] ([facility])[address] [place] [address] [place] CO2 [Moles/Vol] 20.8 mmol/L Low 23.0-27.0 [facility] Comment on above: Performed By: #### L [id number] ####Export Freight Clerk: DANIELLA PEREZ ([phone])[facility] ([facility])[address] [place] [address] HCO3 (Bld) [Moles/Vol] 19.6 mmol/L Low 21.0-25.0 [facility] Comment on above: Performed By: #### L [id number] ####Export Freight Clerk: DANIELLA [id number])[facility] [place] [address] Hemoglobin (Bld) [Mass/Vol] 8.5 g/dL Normal Screen [facility] Comment on above: Performed By: #### L [id number] ####Export Freight Clerk: DANIELLA PEREZ ([phone])[facility] ([facility])[address] [place] [address] OXYGEN SATURATION (%) IN ARTERIAL BLOOD 98.5 % Normal 95.0-100.0 [facility] Comment on above: Performed By: #### L [id number] ####Export Freight Clerk: DANIELLA PEREZ ([phone])[facility] ([facility])[address] [place] [address] PCO2 ARTERIAL 39.5 mm Hg Normal >35.0-<45.0 [facility] Comment on above: Performed By: #### L [id number] ####Export Freight Clerk: DANIELLA PEREZ ([phone])[facility] ([facility])[address] [place] [address] PH ARTERIAL 7.313 Low 7.350-7.450 [facility] Comment on above: Performed By: #### L AB76 ####Export Freight Clerk: DANIELLA PEREZ ([phone])[facility] ([facility])[address] [place] [address] PO2 ARTERIAL 177.8 mm Hg High 80.0-100.0 [facility] Comment on above: Performed By: #### L [id number] ####Export Freight Clerk: DANIELLA PEREZ ([phone])[facility] ([facility])[address] [place] [address] SOURCE OF OXYGEN Ventilator Normal [facility] Comment on above: Performed By: #### L AB76 ####Export Freight Clerk: DANIELLA PEREZ ([phone])[facility])[address] [place] [address] AMOUNT OF OXYGEN [address] [facility] [facility] Comment on above: Performed By: #### L AB76 ####Export Freight Clerk: DANIELLA PEREZ ([phone])[facility] [place] [address] Base excess Calc (Bld) [Moles/Vol] -2.2000 mmol/L Normal -3.0-3.0 [facility] Comment on above: Performed By: #### L AB76 ####Export Freight Clerk: DANIELLA PEREZ ([phone])[facility] ([facility])[address] [place] [address] CO2 [Moles/Vol] 24.6 mmol/L Normal 23.0-27.0 [facility] Comment on above: Performed By: #### L AB76 ####Export Freight Clerk: DANIELLA PEREZ ([phone])[facility] ([facility])[address] [place] [address] HCO3 (Bld) [Moles/Vol] 23.3 mmol/L Normal 21.0-25.0 [facility] Comment on above: Performed By: #### L [id number] ####Export Freight Clerk: DANIELLA PEREZ ([phone])[facility] ([facility])[address] [place] [address] Hemoglobin (Bld) [Mass/Vol] 10.2 g/dL Normal Screen only [facility] Comment on above: Performed By: #### L AB76 ####Export Freight Clerk: DANIELLA PEREZ ([phone])[facility] ([facility])[address] [place] [address] OXYGEN SATURATION (%) IN ARTERIAL BLOOD 98.8 % Normal 95.0-100.0 [facility] Comment on above: Performed By: #### L AB76 ####Export Freight Clerk: DANIELLA PEREZ ([phone])[facility] ([facility])[address] [place] [address] PCO2 ARTERIAL 43.0 mm Hg Normal >35.0-<45.0 [facility] Comment on above: Performed By: #### L AB76 ####Export Freight Clerk: DANIELLA PEREZ ([phone])[facility] ([facility])[address] [place] [address] PH ARTERIAL 7.352 Normal 7.350-7.450 [facility] Comment on above: Performed By: #### L AB76 ####Export Freight Clerk: DANIELLA PEREZ ([phone])[facility] ([facility])[address] [place] [address] PO2 ARTERIAL 387.1 mm Hg High 80.0-100.0 [facility] Comment on above: Performed By: #### L AB76 ####Export Freight Clerk: DANIELLA PEREZ ([phone])[facility] ([facility])[address] [place] [address] SOURCE OF OXYGEN Ventilator Normal [facility]th System [facility] Comment on above: Performed By: #### L AB76 ####Export Freight Clerk: DANIELLA PEREZ ([phone])[facility] ([facility])[address] [place] [address] Basic metabolic 1997 panelOr dered By: Ann Lopez on 05-10-2024 Anion gap [Moles/Vol] 9 mmol/L 3 - 13 mmol/L [facility] Calcium [Mass/Vol] 8.2 mg/dL Low 8.8 - 10. 0 mg/dL [facility] Chloride [Moles/Vol] 115 mmol/L High 98 - 10 7 mmol/L [facility] CO2 [Moles/Vol] 19 mmol/L Low 23 - 31 mmol/L [facility] Creatinine [Mass/Vol] 0.84 mg/dL 0.72 - 1.25 mg/dL [facility] GFR/1.73 sq M.predicted (S/P/Bld) [Vol rate/Area] 87.1 mL/min - PINF [facility] Glucose [Mass/Vol] 146 mg/dL High 82 - 115 mg/dL [facility] Interpretation and review of laboratory results Abnormal [facility] Potassium [Moles/Vol] 4.6 mmol/L 3.5 - 5.1 mmol/L [facility] Sodium [Moles/Vol] 143 mmol/L 136 - 145 mmol/L [facility] Urea nitrogen [Mass/Vol] 16 mg/dL 9 - 23 mg/dL [facility] Basic metabolic 1998 panelon 05-10-2024 Anion gap [Moles/Vol] 6 mmol/L 3 - 13 mmol/L [facility] Calcium [Mass/Vol] 9.8 mg/dL 8.8 - 10. 0 mg/dL [facility] Chloride [Moles/Vol] 111 mmol/L High 98 - 10 7 mmol/L [facility] CO2 [Moles/Vol] 22 mmol/L Low 23 - 31 mmol/L [facility] Creatinine [Mass/Vol] 0.84 mg/dL 0.72 - 1.25 mg/dL [facility] GFR/1.73 sq M.predicted (S/P/Bld) [Vol rate/Area] 87.1 mL/min - PINF [facility] Glucose [Mass/Vol] 144 mg/dL High 82 - 115 mg/dL [facility] Potassium [Moles/Vol] 3.6 mmol/L 3.5 - 5.1 mmol/L [facility] Sodium [Moles/Vol] 139 mmol/L 136 - 145 mmol/L [facility] Urea nitrogen [Mass/Vol] 17 mg/dL 9 - 23 mg/dL [facility] CALCIUM, IONIZEDon 5 CALCIUM IONIZED 4.40 mg/dL Normal 4.30-5.20 [facility] Comment on above: Performed By: #### L AB54 ####Export Freight Clerk: DANIELLA PEREZ ([phone])[address] PH, IONIZED CALCIUM 7.39 Normal 7.31-7.46 [facility] Comment on above: Performed By: #### L AB54 ####Export Freight Clerk: DANIELLA PEREZ ([phone])[facility])[address] [place] [address] CALCIUM IONIZED 4.40 mg/dL Normal 4.30-5.20 [facility] Comment on above: Performed By: #### L AB54 ####Export Freight Clerk: DANIELLA PEREZ ([phone])[address] PH, IONIZED CALCIUM 7.33 Normal 7.31-7.46 [facility] Comment on above: Performed By: #### L AB54 ####Export Freight Clerk: DANIELLA [phone])[facility] ([facility])[address] [place] [address] CALCIUM IONIZED 5.40 mg/dL High 4.30-5.20 [facility] Comment on above: Performed By: #### L AB54 #### Export Freight Clerk: DANIELLA PEREZ ([phone]) [facility]) [address] [place] [address] PH, IONIZED CALCIUM 7.37 Normal 7.31-7.46 [facility] Comment on above: Performed By: #### L AB54 #### Export Freight Clerk: DANIELLA PEREZ ([id number]) [facility]) [address] [place] [address] CBC (HEMOGRAM)on 05-10-2024 Erythrocyte distribution width (RBC) [Ratio] 14.3 % Normal 11.5-15.0 [facility] Comment on above: Performed By: #### L [id number] ####Export Freight Clerk: DANIELLA PEREZ ([phone])[facility] ([facility])[address] [place] [address] Hematocrit (Bld) [Volume fraction] 26.0 % Low 40.0-52.0 [facility] Comment on above: Performed By: #### L [id number] ####Export Freight Clerk: DANIELLA PEREZ ([phone])[facility])[address] [place] [address] Hemoglobin (Bld) [Mass/Vol] 8.6 g/dL Low 13.0-18.0 [facility] Comment on above: Performed By: #### L [id number] ####Export Freight Clerk: DANIELLA PEREZ ([phone])[facility])[address] [place] [address] MCH (RBC) [Entitic mass] 27.8 pg Normal 26.0-34.0 [facility] Comment on above: Performed By: #### L [id number] ####Export Freight Clerk: DANIELLA PEREZ ([phone])[facility])[address] [place] [address] MCHC 33.1 % Normal 30.5-36.0 [facility] Comment on above: Performed By: #### L [id number] ####Export Freight Clerk: DANIELLA PEREZ ([phone])[facility] ([facility])[address] [place] [address] MCV (RBC) [Entitic vol] 84.1 fL Normal 77.0-99.0 [facility] Comment on above: Performed By: #### L [id number] ####Export Freight Clerk: DANIELLA PEREZ ([phone])[facility] ([facility])[address] [place] [address] Platelet mean volume (Bld) [Entitic vol] 9.6 fL Normal 9.0-12.7 [facility] Comment on above: Performed By: #### L [id number] ####Export Freight Clerk: DANIELLA PEREZ ([phone])[facility] ([facility])[address] [place] [address] Platelets (Bld) [#/Vol] 157 10*3/uL Normal 140-440 [facility] Comment on above: Performed By: #### L [id number] ####Export Freight Clerk: DANIELLA PEREZ ([phone])[facility] ([facility])[address] [place] [address] RBC (Bld) [#/Vol] 3.09 10*6/uL Low 4.40-5.90 [facility] Comment on above: Performed By: #### L [id number] ####Export Freight Clerk: DANIELLA PEREZ ([phone])[facility] ([facility])[address] [place] [address] WBC (Bld) [#/Vol] 15.4 10*3/uL High 3.6-10.7 [facility] Comment on above: Performed By: #### L AB294 ####Export Freight Clerk: DANIELLA PEREZ ([phone])[facility] ([facility])[address] [place] [address] Erythrocyte distribution width (RBC) [Ratio] 14.0 % Normal 11.5-15.0 [facility] Comment on above: Performed By: #### L [id number] ####Export Freight Clerk: DANIELLA PEREZ ([phone])[facility])[address] [place] [address] Hematocrit (Bld) [Volume fraction] 24.9 % Low 40.0-52.0 [facility] Comment on above: Performed By: #### L [id number] ####Export Freight Clerk: DANIELLA PEREZ ([phone])[facility])[address] [place] [address] Hemoglobin (Bld) [Mass/Vol] 7.9 g/dL Low 13.0-18.0 [facility] Comment on above: Performed By: #### L [id number] ####Export Freight Clerk: DANIELLA PEREZ ([phone])[address] MCH (RBC) [Entitic mass] 27.4 pg Normal 26.0-34.0 [facility] Comment on above: Performed By: #### L [id number] ####Export Freight Clerk: DANIELLA PEREZ ([phone])[address] MCHC 31.7 % Normal 30.5-36.0 [facility] Comment on above: Performed By: #### L [id number] ####Export Freight Clerk: DANIELLA PEREZ ([phone])[facility])[address] [place] [address] MCV (RBC) [Entitic vol] 86.5 fL Normal 77.0-99.0 [facility] Comment on above: Performed By: #### L [id number] ####Export Freight Clerk: DANIELLA PEREZ ([phone])[facility])[address] [place] [address] Platelet mean volume (Bld) [Entitic vol] 9.3 fL Normal 9.0-12.7 [facility] Comment on above: Performed By: #### L [id number] ####Export Freight Clerk: DANIELLA PEREZ ([phone])[facility])[address] [place] [address] Platelets (Bld) [#/Vol] 124 10*3/uL Low 140-440 [facility] Comment on above: Performed By: #### L [id number] ####Export Freight Clerk: DANIELLA PEREZ ([phone])[facility])[address] [place] [address] RBC (Bld) [#/Vol] 2.88 10*6/uL Low 4.40-5.90 [facility] Comment on above: Performed By: #### L [id number] ####Export Freight Clerk: DANIELLA PEREZ ([phone])[facility] ([facility])[address] [place] [address] WBC (Bld) [#/Vol] 11.3 10*3/uL High 3.6-10.7 [facility] Comment on above: Performed By: #### L [id number] ####Export Freight Clerk: DANIELLA PEREZ ([phone])[facility])[address] [place] [address] CBC W Auto Differential pane l (Bld)Ordered By: Radha Strickland on 05-10-2024 Erythrocyte distribution width (RBC) [Ratio] 14.3 % 11.5 - 15.0 % [facility] Hematocrit (Bld) [Volume fraction] 22.2 % Low 40.0 - 52.0 % [facility] Hemoglobin (Bld) [Mass/Vol] 7.3 g/dL Low 13.0 - 18.0 g/dL [facility] Interpretation and review of laboratory results Abnormal [facility] MCH (RBC) [Entitic mass] 28.2 pg 26. 0 - 34.0 pg [facility] MCHC (RBC) [Mass/Vol] 32.9 % 30.5 - 36.0 % [facility] MCV (RBC) [Entitic vol] 85.7 fL 77.0 - 99.0 fL [facility] Platelet mean volume (Bld) [Entitic vol] 9.6 fL 9.0 - 12.7 fL [facility] Platelets (Bld) [#/Vol] 110 10*3/uL Low 140 - 440 10*3/uL [facility] RBC (Bld) [#/Vol] 2.59 10*6/uL Low 4.40 - 5.9 0 10*6/uL [facility] WBC (Bld) [#/Vol] 8.8 10*3/uL 3.6 - 10.7 10*3/uL [facility] CBC WITH AUTO DIFFERENTIALon 05-10-2024 Erythrocyte distribution width (RBC) [Ratio] 14.3 % Normal 11.5-15.0 [facility] Comment on above: Performed By: #### L [id number], [id number] ####Export Freight Clerk: DANIELLA PEREZ ([phone])[address] Hematocrit (Bld) [Volume fraction] 22.2 % Low 40.0-52.0 [facility] Comment on above: Performed By: #### Verito [id number], [id number] ####Export Freight Clerk: DANIELLA PEREZ ([phone])[address] Hemoglobin (Bld) [Mass/Vol] 7.3 g/dL Low 13.0-18.0 [facility] Comment on above: Performed By: #### L [id number], [id number] ####Export Freight Clerk: DANIELLA PEREZ ([phone])[address] MCH (RBC) [Entitic mass] 28.2 pg Normal 26.0-34.0 [facility] Comment on above: Performed By: #### L [id number], [id number] ####Export Freight Clerk: DANIELLA PEREZ ([id number])[address] MCHC 32.9 % Normal 30.5-36.0 [facility] Comment on above: Performed By: #### L [id number], [id number] ####Export Freight Clerk: DANIELLA [phone])[facility] ([facility])[address] [place] [address] MCV (RBC) [Entitic vol] 85.7 fL Normal 77.0-99.0 [facility] Comment on above: Performed By: #### L [id number], [id number] ####Export Freight Clerk: DANIELLA PEREZ ([phone])[facility] ([facility])[address] [place] [address] Platelet mean volume (Bld) [Entitic vol] 9.6 fL Normal 9.0-12.7 [facility] Comment on above: Performed By: #### L [id number], [id number] ####Export Freight Clerk: DANIELLA PEREZ ([phone])[facility] ([facility])[address] [place] [address] Platelets (Bld) [#/Vol] 110 10*3/uL Low 140-440 [facility] Comment on above: Performed By: #### Verito [id number], [id number] ####Export Freight Clerk: DANIELLA PEREZ ([phone])[facility] ([facility])[address] [place] [address] RBC (Bld) [#/Vol] 2.59 10*6/uL Low 4.40-5.90 [facility] Comment on above: Performed By: #### L [id number], [id number] ####Export Freight Clerk: DANIELLA PEREZ ([phone])[facility])[address] [place] [address] WBC (Bld) [#/Vol] 8.8 10*3/uL Normal 3.6-10.7 [facility] Comment on above: Performed By: #### L [id number], [id number] ####Export Freight Clerk: DANIELLA PEREZ ([phone])[facility])[address] [place] [address] CBC panel Auto (Bld)on 05-10 Erythrocyte distribution width (RBC) [Ratio] 14.3 % 11.5 - 15.0 % [facility] Hematocrit (Bld) [Volume fraction] 26 % Low 40.0 - 52.0 % [facility] Hemoglobin (Bld) [Mass/Vol] 8.6 g/dL Low 13.0 - 18.0 g/dL [facility] Interpretation and review of laboratory results Abnormal [facility] MCH (RBC) [Entitic mass] 27.8 pg 26. 0 - 34.0 pg [facility] MCHC (RBC) [Mass/Vol] 33.1 % 30.5 - 36.0 % [facility] MCV (RBC) [Entitic vol] 84.1 fL 77.0 - 99.0 fL [facility] Platelet mean volume (Bld) [Entitic vol] 9.6 fL 9.0 - 12.7 fL [facility] Platelets (Bld) [#/Vol] 157 10*3/uL 140 - 440 10*3/uL [facility] RBC (Bld) [#/Vol] 3.09 10*6/uL Low 4.40 - 5.9 0 10*6/uL [facility] WBC (Bld) [#/Vol] 15.4 10*3/uL High 3.6 - 10.7 10*3/uL [facility] Erythrocyte distribution width (RBC) [Ratio] 14 % 11.5 - 15.0 % [facility] Hematocrit (Bld) [Volume fraction] 24.9 % Low 40.0 - 52.0 % [facility] Hemoglobin (Bld) [Mass/Vol] 7.9 g/dL Low 13.0 - 18.0 g/dL [facility] Interpretation and review of laboratory results Abnormal [facility] MCH (RBC) [Entitic mass] 27.4 pg 26. 0 - 34.0 pg [facility] MCHC (RBC) [Mass/Vol] 31.7 % 30.5 - 36.0 % [facility] MCV (RBC) [Entitic vol] 86.5 fL 77.0 - 99.0 fL [facility] Platelet mean volume (Bld) [Entitic vol] 9.3 fL 9.0 - 12.7 fL [facility] Platelets (Bld) [#/Vol] 124 10*3/uL Low 140 - 440 10*3/uL [facility] RBC (Bld) [#/Vol] 2.88 10*6/uL Low 4.40 - 5.9 0 10*6/uL [facility] WBC (Bld) [#/Vol] 11.3 10*3/uL High 3.6 - 10.7 10*3/uL [facility] COMPREHENSIVE METABOLIC PANE Venkata 05-10-2024 Albumin [Mass/Vol] 3.2 g/dL Low 3.4-4.8 [facility] Comment on above: Performed By: #### Verito AB113, LAB17, [id number] ####Export Freight Clerk: DANIELLA PEREZ ([phone])[facility] ([facility])[address] [place] [address] ALP [Catalytic activity/Vol] 45 U/L Normal 40-150 [facility] Comment on above: Performed By: #### Verito ABAnnamaria, LAB17, [id number] ####Export Freight Clerk: DANIELLA PEREZ ([phone])[facility] ([facility])[address] [place] [address] ALT [Catalytic activity/Vol] U/L Normal <40 [facility] Comment on above: Performed By: #### Verito ABAnnamaria, LAB17, [id number] ####Export Freight Clerk: DANIELLA PEREZ ([phone])[facility] ([facility])[address] [place] [address] Anion gap [Moles/Vol] 8 mmol/L Normal 3-13 [facility] Comment on above: Performed By: #### Verito ABAnnamaria, LAB17, [id number] ####Export Freight Clerk: DANIELLA PEREZ ([phone])[facility] ([facility])[address] [place] [address] AST [Catalytic activity/Vol] 27 U/L Normal <34 [facility] Comment on above: Performed By: #### Verito ABAnnamaria, LAB17, [id number] ####Export Freight Clerk: DANIELLA PEREZ ([phone])[facility])[address] [place] [address] Bilirubin [Mass/Vol] 0.6 mg/dL Normal <1.2 [facility] Comment on above: Performed By: #### L ABAnnamaria, LAB17, [id number] ####Export Freight Clerk: DANIELLA PEREZ ([phone])[facility] [place] [address] [place] Calcium [Mass/Vol] 8.4 mg/dL Low 8.8-10.0 [facility] Comment on above: Performed By: #### Verito ABAnnamaria, LAB17, [id number] ####Export Freight Clerk: DANIELLA PEREZ ([phone])[facility] [place] [address] [place] Chloride [Moles/Vol] 112 mmol/L High 98-107 [facility] Comment on above: Performed By: #### Verito BALBUENA, LAB17, [id number] ####Export Freight Clerk: DANIELLA PEREZ ([id number])[facility] [place] [address] CO2 [Moles/Vol] 21 mmol/L Low 23-31 [facility] Comment on above: Performed By: #### Verito BALBUENA, LAB17, [id number] ####Export Freight Clerk: DANIELLA PEREZ ([id number])[facility] [place] [address] [place] Creatinine [Mass/Vol] 0.89 mg/dL Normal 0.72-1.25 [facility] Comment on above: Performed By: #### Verito BALBUENA, LAB17, [id number] ####Export Freight Clerk: DANIELLA PEREZ ([phone])[facility] [place] [address] [place] GLOMERULAR FILTRATION RATE ML/MIN/1.73 SQ M.PREDICTED 85.6 mL/min/1.73m*2 Normal >60.0 [facility] Comment on above: Result Comment: Calc ulation based on the Chronic Kidney Disease Epidemiology Collaboration (CKD-EPI) equation refit without adjustment for race Performed By: #### L ABAnnamaria, LAB17, [id number] ####Export Freight Clerk: DANIELLA PEREZ ([phone])[facility] ([facility])[address] [place] [address] [place] Glucose [Mass/Vol] 205 mg/dL High 82-115 [facility] Comment on above: Performed By: #### L AB113, LAB17, [id number] ####Export Freight Clerk: DANIELLA PEREZ ([phone])[facility])[address] [place] [address] Potassium [Moles/Vol] 3.1 mmol/L Low 3.5-5.1 [facility] Comment on above: Result Comment: [facility] potassium values may be up to 0.5 mmol/L lower than serum values. Performed By: #### Verito AB113, LAB17, [id number] ####Export Freight Clerk: DANIELLA PEREZ ([phone])[facility])[address] [place] [address] Protein [Mass/Vol] 4.5 g/dL Low 6.4-8.3 [facility] Comment on above: Performed By: #### Verito ABAnnamaria, LAB17, [id number] ####Export Freight Clerk: DANIELLA PEREZ ([phone])[facility])[address] [place] [address] Sodium [Moles/Vol] 141 mmol/L Normal 136-145 [facility] Comment on above: Performed By: #### Verito ABAnnamaria, LAB17, [id number] ####Export Freight Clerk: DANIELLA PEREZ ([phone])[facility])[address] [place] [address] Urea nitrogen [Mass/Vol] 17 mg/dL Normal 9-23 [facility] Comment on above: Performed By: #### Verito ABAnnamaria, LAB17, [id number] ####Export Freight Clerk: DANIELLA PEREZ ([phone])[facility])[address] [place] [address] Calcium.ionized [Moles/Vol]o n 05-10-2024 Calcium.ionized (Bld) [Moles/Vol] 4.4 mg/dL 4.30 - 5.20 mg/dL [facility] Interpretation and review of laboratory results Normal [facility] PH, IONIZED CALCIUM 7.39 7.31 - 7.46 [facility] Calcium.ionized (Bld) [Moles/Vol] 4.4 mg/dL 4.30 - 5.20 mg/dL [facility] Interpretation and review of laboratory results Normal [facility] PH, IONIZED CALCIUM 7.33 7.31 - 7.46 [facility] Calcium.ionized [Moles/Vol]O rdered By: Brandt Gilmore on 05-10-2024 Calcium.ionized (Bld) [Moles/Vol] 5.4 mg/dL High 4.30 - 5.20 mg/dL [facility] Interpretation and review of laboratory results Abnormal [facility] PH, IONIZED CALCIUM 7.37 7.31 - 7.46 [facility] Comprehensive metabolic 1998 panelon 05-10-2024 Albumin [Mass/Vol] 3.2 g/dL Low 3.4 - 4.8 g/dL [facility] ALP [Catalytic activity/Vol] 45 U/L 40 - 150 U/L [facility] ALT [Catalytic activity/Vol] U/L NINF - 40 U/L [facility] Anion gap [Moles/Vol] 8 mmol/L 3 - 13 mmol/L [facility] AST [Catalytic activity/Vol] 27 U/L NINF - 34 U/L [facility] Bilirubin [Mass/Vol] 0.6 mg/dL NINF - 1.2 mg/dL [facility] Calcium [Mass/Vol] 8.4 mg/dL Low 8.8 - 10. 0 mg/dL [facility] Chloride [Moles/Vol] 112 mmol/L High 98 - 10 7 mmol/L [facility] CO2 [Moles/Vol] 21 mmol/L Low 23 - 31 mmol/L [facility] Creatinine [Mass/Vol] 0.89 mg/dL 0.72 - 1.25 mg/dL [facility] GFR/1.73 sq M.predicted (S/P/Bld) [Vol rate/Area] 85.6 mL/min - PINF [facility] Glucose [Mass/Vol] 205 mg/dL High 82 - 115 mg/dL [facility] Interpretation and review of laboratory results Abnormal [facility] Potassium [Moles/Vol] 3.1 mmol/L Low 3.5 - 5.1 mmol/L [facility] Protein [Mass/Vol] 4.5 g/dL Low 6.4 - 8.3 g/dL [facility] Sodium [Moles/Vol] 141 mmol/L 136 - 145 mmol/L [facility] Urea nitrogen [Mass/Vol] 17 mg/dL 9 - 23 mg/dL [facility] Consulton 05-10-2024 Consult - Attestation signed by Lilian Cisse MD at 05/10/2024 1:48 PM I have personally performed a face to face diagnostic evaluation on this patient. In addition, I have reviewed the resident's/AUTOMOTIVE SERVICE WRITER/FOOTBALL PAD REPAIRER's care plan and agree with those findings I have performed a substantive portion of the the medical decision making. My findings are as follows: Patient is status post CABG Has type 2 diabetes on Soliqua, metformin and Jardiance per notes. Lab Results Component Value Date HGBA1C 7.4 (H) 05/04/2024 Currently on insulin drip 1.5 units/h Vitals: BP (!) 144/66 Pulse 77 Temp (!) 35.9 ?C (96.7 ?F) Resp 15 Ht 5' 7 (1.702 m) Wt 211 lb (95.7 kg) SpO2 100% BMI 33.05 kg/m? Constitutional: intubated Respiratory: No respiratory distress Cardiovascular System:o lower extremity edema Abdomen: obese A/P Type 2 diabetes with hyperglycemia with long-term insulin use Type 2 diabetes with cardiac complication Body mass index is 33.05 kg/m?. Continue insulin drip BG Q 1 hour per protocol Will switch insulin drip to sc insulin if in 24 to 48 hours. Most likely patient will be discharged on his home regimen for diabetes as long as there is no contraindication Old records including available PCP, ED notes and or other specialists notes are reviewed. LABs and/or imaging are reviewed as detailed in the resident's/AUTOMOTIVE SERVICE WRITER/FOOTBALL PAD REPAIRER's note Department of Internal Medicine Division of Endocrinology, Diabetes, & Metabolism Endocrinology Note Patient Name: Farhana Thrasher : 1940 AGE: 84 y.o. Room/Bed: OR/NONE Admission Date: 05/10/2024 Visit Date: 05/10/2024 Reason for Endocrine Consult: post op heart Provider/Team Requesting Consult: CTS PCP: KELSEY MOON MD Outpt Flow Match Sofa Cutter: No ASSESSMENT: DM2 with hyperglycemia and fci insulin Stress hyperglycemia CABGX3 HLD/CAD Obesity Body mass index is 33.05 kg/m?. PLAN: Continue insulin gtt ICU goal <180 GMF goal <150 POCT BG ACHS-q1 on gtt Hypoglycemia management per protocol Carb controlled diet ANTICIPATED ENDOCRINE HOME GOING RECOMMENDATIONS: Optimized for Discharge from Endocrine standpoint: No Home Going Endocrine Rx Recommendations-- Tbd- if no CI resume home regimen Soliqua pen Jardiance home dose Metformin home dose Outpt Follow Up-- Can offer SUBJECTIVE/HPI: CHIEF COMPLAINT: No chief complaint on file. S/p CABGx3 Noted hx of DM2 in chart review BGL below-stable In bed Intubated/sedated Insulin gtt off Pressors as needed VSS NPO CT in place Spoke with team No family present Will clarify DM2 hx once extubated- tomorrow Type of DM: 2 Onset of DM: not clear Home DM Medication Regimen: per chart-Soliqua pen 100/33 at 45 units daily am, jardiance 25 mg po daily, metformin 1 g po bid DM control (last A1c/glucose data): Lab Results Component Value Date HGBA1C 7.4 (H) 05/04/2024 Glucose Date/Time Value Ref Range Status 05/10/2024 12:13 PM 135 (H) 70 - 100 mg/dL Final 05/10/2024 06:20 AM 114 (H) 70 - 100 mg/dL Final Review of Systems Unable to perform ROS: Intubated ROS negative except for those mentioned in HPI. OBJECTIVE: Vitals: 05/10/24 0625 05/10/24 0825 BP: (!) 144/66 Pulse: 54 Resp: 16 Temp: (!) 35.9 ?C (96.7 ?F) SpO2: 99% Weight: 211 lb (95.7 kg) 211 lb (95.7 kg) Height: 5' 7 (1.702 m) 5' 7 (1.702 m) Physical Exam Vitals and nursing note reviewed. Constitutional: General: He is sleeping. He is not in acute distress. Appearance: He is obese. He is ill-appearing. He is not toxic-appearing. Interventions: He is sedated and intubated. HENT: Head: Normocephalic. Mouth/Throat: Mouth: Mucous membranes are moist. Cardiovascular: Rate and Rhythm: Normal rate. Pulmonary: Effort: Pulmonary effort is normal. No respiratory distress. He is intubated. Abdominal: Tenderness: There is no guarding. Musculoskeletal: Cervical back: Normal range of motion. Skin: General: Skin is warm and dry. Coloration: Skin is pale. Comments: Intact incision 24 hour intake/output: Intake/Output Summary (Last 24 hours) at 05/10/2024 1226 Last data filed at 05/10/2024 1214 Gross per 24 hour Intake 2890.2 ml Output 735 ml Net 2155.2 ml Diet: NPO diet Medications (as per EMR): HomeMeds: Current Outpatient Medications Medication Instructions amLODIPine (Norvasc) 5 MG tablet Every evening aspirin 81 mg, Every evening atorvastatin (LIPITOR) 10 mg, Nightly Calcium Carb-Cholecalciferol (CALCIUM 500 + D3 PO) 1 tablet, Daily carbidopa-levodopa (Sinemet) 25-100 MG tablet 1 tablet, 3 times daily empagliflozin (JARDIANCE) 25 mg, Daily insulin glargine-lixisenatide (Soliqua) 100-33 UNT-MCG/ML pen 45 Units, Daily before breakfast metFORMIN (GLUCOPHAGE) 1,0 (more content not included)... Normal [facility] Consult - Attestation signed by Luz Hough DO at 05/10/2024 1:52 PM I have personally performed a [id number] diagnostic evaluation on this patient on date of service 05/10/24. History, labs, imaging studies, and electronic medical record have been reviewed by me. This note documented by the []greenhouse grower [x]JULIO CESAR reflects my history, exam, and medical decision making. I have reviewed and agree with the care plan. Changes were made in the orders as necessary. ROS documentation was reviewed and negative unless otherwise stated in HPI. Assessment: -mvCAD s/p CABGx3 -acute post op pulmonary management: expected course -acute post op blood loss anemia, consumptive thrombocytopenia -mild carotid artery disease -DM2 with hyperglycemia (A1c 7.4) -Parkinson's disease Plan: -cont mech vent, wean as able. Sugammadex x1. Wean sedation as able, SBT once awake/appropriate. -Has temp pacing wires set to back up -monitor hemodynamics via Mitchell bárbara. Currently on low dose epi gtt at 0.03 mcg/kg/min -check CBC, coags. Monitor chest tube output -endocrine consult pending, on insulin gtt per protocol Total critical care time for this patient with life-threatening unstable organ failure, including direct patient contact, management of life support systems, review of data including imaging and labs, and discussions with other team members and physicians at least 40 minutes so far today, excluding procedures. [facility]: Critical Care Consultation Note Date: 05/10/24 PATIENT NAME: Farhana Thrasher : 1940 (84 y.o.) Reason for Consult: Critical Care & Vent Management HPI: Marcus Thrasher is a 84 y.o. male referred by Dr. Elder for CABG. Patient has history of CAD, carotid artery disease, dyslipidemia, DM, and Parkinson's disease. Pt saw Cardiology on 03/23/24 and reported SOB and chest burning with exertion a month prior. Stress test was ordered which showed moderate size reversible perfusion defect of the lateral wall suggestive of ischemia. Echocardiogram was also completed which demonstrated mild to moderate mitral valve insufficiency. Pt then underwent a heart catheterization on 04/24/24 which demonstrated severe multivessel CAD. Seen Dr. Velasco in OP setting on 04/25/24, agreeable to CABG and underwent surgery on 05/10/24. Surgery: 05/10/24: Dr. Velasco- CABGx3, LEVH, RAYMOND Interval History: 05/10/24: POD #0: Patient arrived to the unit, intubated and sedated. Surgical hand off completed below. Surgery Hand Off: Arrival Time in CTVICU: 1200 Complications/Pertine nt Events: Last Paralytic: 940 Medications given in route: Gtts OR report Epinephrine: 0.02mcg/kg/min Propofol: 25mcg/kg/min Insulin: off Amicar: 29 Current gtts upon arrival Epinephrine: 0.03mcg/kg/min Propofol: 15mcg/kg/min Insulin: off Amicar: 29 Devices: Epicardial wires: yes [x] no [] IABP: yes [] no [x] LVAD: yes [] no [x] Speed: Equipment: Back up controller yes [] no [x] Blood Transfusions Intra Op: yes [] no [x] CellSaver: Yes Vital Signs including Cardiac Numbers (if indicated) at Conclusion of Hand-off OR CTVICU CO 5 2.80 CI 2.4 5.80 CVP 7 5 SVR 798 869 PAP 13/11 20/01 Additional Interventions/Misc during Handoff Review of Systems Unable to perform ROS: Intubated Allergies: Rosuvastatin and Tape Past Medical History: has a past medical history of Carotid arterial disease (HCC), Coronary artery disease, Depression, Diabetes mellitus (HCC), Dyslipidemia, GERD (gastroesophageal reflux disease), Hypertension, Malignant neoplasm of prostate (HCC), Parkinsonism (HCC), and Sleep apnea. Past Surgical History: has a past surgical history that includes Prostatectomy; Cataract extraction (Bilateral); Tonsillectomy; Cholecystectomy; and Pilonidal cyst drainage. Social History: reports that he has quit smoking. His smoking use included cigarettes. He started smoking about 62 years ago. He has a 11 pack-year smoking history. He has never used smokeless tobacco. He reports that he does not drink alcohol and does not use drugs. Family History: family history includes COPD in his father; Coronary artery disease in his brother and father; Heart attack in his brother; Stroke in his mother. Medications: Prior to Admission medications Medication Sig Start Date End Date Taking? Authorizing Provider amLODIPine (Norvasc) 5 MG tablet Take by mouth every evening. Yes Historical Provider, aspirin 81 MG EC tablet Take 81 mg by mouth every evening. Yes Historical Provider, atorvastatin (Lipitor) 10 MG tablet Take 10 mg by mouth Nightly. Yes Historical Provider, Calcium Carb-Cholecalciferol (more content not included)... Normal [facility] FIBRINOGENon 05-10-2024 FIBRINOGEN 225 mg/dL Normal 200-400 [facility] Comment on above: Performed By: #### L [id number], [id number] ####Export Freight Clerk: DANIELLA PEREZ ([phone])[facility] ([address] Fibrinogen Coag (PPP) [Mass/ Vol]on 05-10-2024 Interpretation and review of laboratory results Normal [facility] Laboratory - Chemistry and C hemistry - challengeon 05-10-2024 Glucose [Mass/Vol] 160 mg/dL High 70 - 100 mg/dL [facility] Glucose [Mass/Vol] 166 mg/dL High 70 - 100 mg/dL [facility] Glucose [Mass/Vol] 166 mg/dL High 70 - 100 mg/dL [facility] Glucose [Mass/Vol] 160 mg/dL High 70 - 100 mg/dL [facility] Glucose [Mass/Vol] 147 mg/dL High 70 - 100 mg/dL [facility] Glucose [Mass/Vol] 147 mg/dL High 70 - 100 mg/dL [facility] Base excess Calc (Bld) [Moles/Vol] -3 mmol/L -3.0 - 3.0 mmol/L [facility] CO2 (Bld) [Partial pressure] 37.3 mm[Hg] - PINF [facility] CO2 [Moles/Vol] 22.9 mmol/L Low 23.0 - 27.0 mmol/L [facility] HCO3 (Bld) [Moles/Vol] 21.7 mmol/L 21.0 - 25.0 mmol/L [facility] Oxygen (Bld) [Partial pressure] 117 mm[Hg] High [facility] pH (Bld) 7.383 [pH] 7.350 - 7.450 [facility] Glucose [Mass/Vol] 165 mg/dL High 70 - 100 mg/dL [facility] Glucose [Mass/Vol] 180 mg/dL High 70 - 100 mg/dL [facility] Glucose [Mass/Vol] 172 mg/dL High 70 - 100 mg/dL [facility] Magnesium [Mass/Vol] 2.6 mg/dL 1.6 - 2 .6 mg/dL [facility] Base excess Calc (Bld) [Moles/Vol] -6.1000 mmol/L Low -3.0 - 3.0 mmol/L [facility] CO2 (Bld) [Partial pressure] 39.5 mm[Hg] - PINF [facility] CO2 [Moles/Vol] 20.8 mmol/L Low 23.0 - 27.0 mmol/L [facility] HCO3 (Bld) [Moles/Vol] 19.6 mmol/L Low 21.0 - 25.0 mmol/L [facility] Oxygen (Bld) [Partial pressure] 177.8 mm[Hg] High [facility] pH (Bld) 7.313 [pH] Low 7.350 - 7.450 [facility] Glucose [Mass/Vol] 172 mg/dL High 70 - 100 mg/dL [facility] Glucose [Mass/Vol] 153 mg/dL High 70 - 100 mg/dL [facility] Glucose [Mass/Vol] 135 mg/dL High 70 - 100 mg/dL [facility] Magnesium [Mass/Vol] 3.4 mg/dL High 1.6 - 2 .6 mg/dL [facility] Base excess Calc (Bld) [Moles/Vol] -2.2000 mmol/L -3.0 - 3.0 mmol/L [facility] CO2 (Bld) [Partial pressure] 43 mm[Hg] - PINF [facility] CO2 [Moles/Vol] 24.6 mmol/L 23.0 - 27.0 mmol/L [facility] HCO3 (Bld) [Moles/Vol] 23.3 mmol/L 21.0 - 25.0 mmol/L [facility] Oxygen (Bld) [Partial pressure] 387.1 mm[Hg] High [facility] pH (Bld) 7.352 [pH] 7.350 - 7.450 [facility] Glucose [Mass/Vol] 114 mg/dL High 70 - 100 mg/dL [facility] - Chemistry and C hemistry - challengeOrdered By: Keisha Linton on 05-10-2024 Base excess Calc (Bld) [Moles/Vol] -2.5000 mmol/L -3.0 - 3.0 mmol/L [facility] CO2 (Bld) [Partial pressure] 36.3 mm[Hg] - PINF [facility] CO2 [Moles/Vol] 23.1 mmol/L 23.0 - 27.0 mmol/L [facility] HCO3 (Bld) [Moles/Vol] 22 mmol/L 21.0 - 25.0 mmol/L [facility] Oxygen (Bld) [Partial pressure] 123.3 mm[Hg] High [facility] pH (Bld) 7.4 [pH] 7.350 - 7.450 [facility] - Coagulationon 0 05-10-2024 aPTT Coag (PPP) [Time] 27.6 s 20.0 - 30.5 s [facility] Fibrinogen Coag (PPP) [Mass/Vol] 225 mg/dL 200 - 400 mg/dL [facility] INR Coag (PPP) [Relative time] 1.3 {INR} High 0.9 - 1.1 [facility] PT Coag (Bld) [Time] 14.3 s High 9.0 - 1 2.0 s [facility] - Hematology and Cell countsOrdered By: Keisha Linton on 05-10-2024 Hemoglobin (Bld) [Mass/Vol] 8.9 g/dL Screen only [facility] - Hematology and Cell countson 05-10-2024 Band form neutrophils (Bld) [#/Vol] 0.1 10*3/uL High NINF - 0.0 10*3/uL [facility] Band form neutrophils/100 WBC (Bld) 1 % High NINF - 0 % [facility] Lymphocytes (Bld) [#/Vol] 0.7 10*3/uL Low 1.0 - 4.3 10*3/uL [facility] Lymphocytes/100 WBC (Bld) 8 % Low 15 - 45 % [facility] Monocytes (Bld) [#/Vol] 0.7 10*3/uL 0.0 - 0.9 10*3/uL [facility] Monocytes/100 WBC (Bld) 8 % 5 - 13 % [facility] Neutrophils (Bld) [#/Vol] 7.4 10*3/uL 1.8 - 7.5 10*3/uL [facility] Ovalocytes LM Ql (Bld) Slight Abnormal (none) [facility] Poikilocytosis LM Ql (Bld) Slight Abnormal (none) [facility] RBC morphology finding Nom (Bld) abnormal [facility] Segmented neutrophils/100 WBC (Bld) 83 % High 38 - 82 % [facility] Hemoglobin (Bld) [Mass/Vol] 7.3 g/dL Screen only [facility] Hemoglobin (Bld) [Mass/Vol] 8.5 g/dL Screen only [facility] Hemoglobin (Bld) [Mass/Vol] 10.2 g/dL Screen only [facility] MAGNESIUMon 05-10-2024 Magnesium [Mass/Vol] 2.6 mg/dL Normal 1.6-2.6 [facility] Comment on above: Result Comment: JEAN CARLOS Nuñez COMMENTS: Higher values can be expected in females during menses. Performed By: #### L [id number], [id number], [id number] ####Export Freight Clerk: DANIELLA PEREZ ([phone])[address] Magnesium [Mass/Vol] 3.4 mg/dL High 1.6-2.6 [facility] Comment on above: Result Comment: JEAN CARLOS Nuñez COMMENTS: Higher values can be expected in females during menses. Performed By: #### L [id number], [id number], [id number] ####Export Freight Clerk: DANIELLA PEREZ ([phone])[facility])[address] [place] [address] MANUAL DIFFERENTIAL (CELLAVI CAMILO)on 05-10-2024 BAND NEUTROPHILS TOTAL PER COUNTED LEUKOCYTES BY MANUAL COUNT 1 Normal [facility] Comment on above: Performed By: #### L [id number], [id number] ####Export Freight Clerk: DANIELLA PEREZ ([phone])[facility] ([facility])[address] [place] [address] [place] BANDS (10*3/UL) IN BLOOD-CELLAVISION 0.1 10*3/uL High <=0.0 [facility] Comment on above: Performed By: #### L [id number], [id number] ####Export Freight Clerk: DANIELLA PEREZ ([phone])[facility] ([facility])[address] [place] [address] BASOPHILS TOTAL PER COUNTED LEUKOCYTES BY MANUAL COUNT [facility] Comment on above: Performed By: #### L [id number], [id number] ####Export Freight Clerk: DANIELLA PEREZ ([phone])[facility] ([facility])[address] [place] [address] BLASTS TOTAL PER COUNTED LEUKOCYTES BY MANUAL COUNT [facility] Comment on above: Performed By: #### L [id number], [id number] ####Export Freight Clerk: DANIELLA PEREZ ([phone])[facility] ([facility])[address] [place] [address] EOSINOPHILS TOTAL PER COUNTED LEUKOCYTES BY MANUAL COUNT [facility] Comment on above: Performed By: #### L [id number], [id number] ####Export Freight Clerk: DANIELLA PEREZ ([phone])[facility] ([facility])[address] [place] [address] LYMPHOCYTES (10*3/UL) IN BLOOD-CELLAVISION 0.7 10*3/uL Low 1.0-4.3 [facility] Comment on above: Performed By: #### L [id number], [id number] ####Export Freight Clerk: DANIELLA PEREZ ([phone])[facility] ([facility])[address] [place] [address] LYMPHOCYTES TOTAL PER COUNTED LEUKOCYTES BY MANUAL COUNT [address] [facility] Comment on above: Performed By: #### L [id number], [id number] ####Export Freight Clerk: DANIELLA PEREZ ([phone])[facility] ([facility])[address] [place] [address] [place] LYMPHOCYTES/100 LEUKOCYTES IN BLOOD-CELLAVISION 8 % Low 15-45 [facility] Comment on above: Performed By: #### L [id number], [id number] ####Export Freight Clerk: DANIELLA PEREZ ([phone])[facility] ([facility])[address] [place] [address] [place] METAMYELOCYTES TOTAL PER COUNTED LEUKOCYTES BY MANUAL COUNT Normal [facility] Comment on above: Performed By: #### L [id number], [id number] ####Export Freight Clerk: DANIELLA PEREZ ([phone])[facility] ([facility])[address] [place] [address] [place] MONOCYTES (10*3/UL) IN BLOOD-CELLAVISION 0.7 10*3/uL Normal 0.0-0.9 [facility] Comment on above: Performed By: #### L [id number], [id number] ####Export Freight Clerk: DANIELLA PEREZ ([phone])[facility] ([facility])[address] [place] [address] [place] MONOCYTES TOTAL PER COUNTED LEUKOCYTES BY MANUAL COUNT 8 Normal [facility] Comment on above: Performed By: #### L [id number], [id number] ####Export Freight Clerk: DANIELLA PEREZ ([phone])[facility] ([facility])[address] [place] [address] [place] MONOCYTES/100 LEUKOCYTES IN BLOOD-TALIB 8 % Normal 5-13 [facility] Comment on above: Performed By: #### L [id number], [id number] ####Export Freight Clerk: DANIELLA PEREZ ([phone])[facility] ([facility])[address] [place] [address] [place] MYELOCYTES COUNTED BY MANUAL COUNT Normal [facility] Comment on above: Performed By: #### L [id number], [id number] ####Export Freight Clerk: DANIELLA PEREZ ([phone])[facility] ([facility])[address] [place] [address] [place] NEUTROPHILS BAND FORM/100 LEUKOCYTES IN BLOOD-CELLAVISI 1 % High <=0 [facility] Comment on above: Performed By: #### L [id number], [id number] ####Export Freight Clerk: DANIELLA PEREZ ([phone])[facility] [place] [address] [place] NEUTROPHILS TOTAL PER COUNTED LEUKOCYTES BY MANUAL COUNT 81 Normal [facility] Comment on above: Performed By: #### L [id number], [id number] ####Export Freight Clerk: DANIELLA PEREZ ([phone])[facility] [place] [address] OVALOCYTES PRESENCE IN BLOOD BY LIGHT MICROSCOPY Slight Abnormal (none) [facility] Comment on above: Performed By: #### L [id number], [id number] ####Export Freight Clerk: DANIELLA PEREZ ([phone])[facility] ([facility])[address] [place] [address] POIKILOCYTOSIS (PRESENCE) IN BLOOD BY LIGHT MICROSCOPY Slight Abnormal (none) [facility] Comment on above: Performed By: #### L [id number], [id number] ####Export Freight Clerk: DANIELLA PEREZ ([phone])[facility] [place] [address] PROMYELOCYTES TOTAL PER COUNTED LEUKOCYTES BY MANUAL COUNT Normal [facility] Comment on above: Performed By: #### L [id number], [id number] ####Export Freight Clerk: DANIELLA PEREZ ([phone])[facility] ([facility])[address] [place] [address] RBC MORPHOLOGY IN BLOOD abnormal Normal [facility] Comment on above: Performed By: #### L [id number], [id number] ####Export Freight Clerk: DANIELLA PEREZ ([phone])[facility] [place] [address] [place] SEGMENTED NEUTROPHILS (10*3/UL) IN BLOOD-CELLAVISION 7.4 10*3/uL Normal 1.8-7.5 [facility] Comment on above: Performed By: #### L [id number], [id number] ####Export Freight Clerk: DANIELLA PEREZ ([phone])[facility])[address] [place] [address] [place] SEGMENTED NEUTROPHILS/100 LEUKOCYTES-CE 83 % High 38-82 [facility] Comment on above: Performed By: #### L [id number], [id number] ####Export Freight Clerk: DANIELLA PEREZ ([phone])[facility] [place] [address] UNCLASSIFIED CELLS TOTAL PER COUNTED LEUKOCYTES BY MANUAL COUNT Normal [facility] Comment on above: Performed By: #### L [id number], [id number] ####Export Freight Clerk: DANIELLA PEREZ ([phone])[facility] ([facility])[address] [place] [address] VARIANT LYMPHOCYTES TOTAL PER COUNTED LEUKOCYTES BY MANUAL COUNT Normal [facility] Comment on above: Performed By: #### L [id number], [id number] ####Export Freight Clerk: DANIELLA PEREZ ([phone])[facility] ([facility])[address] [place] [address] Magnesium [Mass/Vol]on 05-10 [facility] No Panel Informationon 05-10 Interpretation and review of laboratory results Abnormal [facility] Interpretation and review of laboratory results Abnormal [facility] Blood Expiration Date [id number] S [facility] Crossmatch interpretation COMP [facility] Dispense Status Transfused [facility] Product Blood Type 5100 [facility] PRODUCT CODE [id number] [facility] Unit ABO O [facility] Unit Number [id number] [facility] RH Positive [facility] Unit Volume 300 mL [facility] Interpretation and review of laboratory results Abnormal [facility] Bands Manual 1 [facility] Interpretation and review of laboratory results Abnormal [facility] Lymphocytes Manual 8 [facility] Monocytes Manual 8 [facility] alth Neutrophils Manual 81 [facility] Interpretation and review of laboratory results Abnormal [facility] Interpretation and review of laboratory results Abnormal [facility] Interpretation and review of laboratory results Abnormal [facility] Interpretation and review of laboratory results Abnormal [facility] Source Of Oxygen Nasal Cannula (LPM) [facility] Interpretation and review of laboratory results Abnormal [facility] Interpretation and review of laboratory results Abnormal [facility] Interpretation and review of laboratory results Abnormal [facility] Interpretation and review of laboratory results Normal [facility] Amount Of Oxygen 50 [facility] Interpretation and review of laboratory results Abnormal [facility] Source Of O[facility] Interpretation and review of laboratory results Abnormal [facility] Interpretation and review of laboratory results Abnormal [facility] Interpretation and review of laboratory results Abnormal [facility] Interpretation and review of laboratory results Abnormal [facility] Interpretation and review of laboratory results Abnormal [facility] Amount Of Oxygen 100 [facility] Interpretation and review of laboratory results Abnormal [facility] Source Of Oxygen Ventilator [facility] Interpretation and review of laboratory results Abnormal [facility] No Panel InformationOrdered By: Keisha [place] on 05-10-2024 [facility] Interpretation and review of laboratory results Abnormal [facility] Source Of Oxygen Nasal Cannula (LPM) [facility] Op Noteon 05-10-2024 Op Note Cardiothoracic Surgery Operative Report Pre-operative Diagnosis: Multivessel coronary artery disease Post-operative Diagnosis: Multivessel coronary artery disease Procedure: 1. Coronary revascularization x 3: Left internal mammary artery grafted to the left anterior descending coronary artery, reverse saphenous vein graft grafted to the first obtuse marginal coronary artery, reverse saphenous vein graft grafted to the posterior descending coronary artery with endarterectomy 2. Endoscopic vein harvesting left lower extremity (knee to thigh) 3. Intraoperative transesophageal echocardiography Surgeon: Daysi Velasco MD Element Winding Machine Tender(s): [] Yesenia Taylor [] Gladis Melgar [x] Vicky Tong [] Vicky Le [x] JIM Rosales Anesthesia: General Estimated blood loss: Difficult to estimate due to the nature of the surgery. Cell Saver and pump suction utilized. Total IV fluids: See anesthesia and perfusion record Blood Transfusion?: None Drains: Mediastinal and bilateral pleural drains Specimens: Endarterectomy specimen right coronary arterial system Complications: None Condition: Stable upon transfer to the intensive care unit Prophylactic Antibiotics: Yes 1st or 2nd generation cephalosporin given (or other antibiotic in the event of an allergy) within 1 hour of surgical incision (two hours if receiving Vancomycin or flouroquinolone) If NO, indication reason why: [] Patient on continuous antibiotics for documented preoperative infection [] Other: The STS Risk Calculator score was calculated and discussed with the patient/family prior to surgery. Yes: [x] No: [] Not a risk calculated procedure [] Emergent or Emergent/Salvage Used of SUSAN: Yes No due to: [] Subclavian stenosis [] Emergent or Emergent/Salvage [] Prior cardiothoracic surgery [] Prior mediastinal radiation [] No bypassable LAD disease, LAD not needed/bypassed: (This can include clean LAD, diffusely diseased LAD or other condition resulting in the LAD not being bypassed). Beta-soni within 24 hours prior to surgical incision: [x] Yes - please see documentation in EMR [] No [] Allergy [] Heart block [] COPD [] Hypotension BP: [] Bradycardia HR: INDICATIONS FOR SURGERY: This 84-year-old gentleman has had progressive angina. A stress test was performed which was abnormal. This led to a subsequent cardiac catheterization which revealed multivessel coronary artery disease. The patient has been active but is limited by parkinsonism (manifested by an intention tremor), diabetes mellitus, and neuropathy in both lower extremities for which she uses a cane and leg braces when he leaves the house. His echo shows a normal ejection fraction without valvular pathology. His carotids showed no evidence of obstructive disease. We discussed the options for treatment, which include medication, PCI/stents, and CABG. We have opted to proceed with CABG as the most durable solution to this patient's multivessel coronary artery disease with proximal LAD lesion in the background of diabetes. While his recovery may take a bit longer due to his diabetic neuropathy, I believe his perioperative risk remains low, at approximately 2%. The overall risks benefits and alternatives were discussed with the patient and we will proceed with coronary bypass surgery which would include grafts to his LAD, the distal circumflex coronary artery, and the right coronary artery. DESCRIPTION OF PROCEDURE: Procedure Preparation: Patient was taken to the operative suite and placed under general endotracheal anesthesia. Monitoring lines were inserted by the department of anesthesia. Intraoperative transesophageal echocardiography was performed. The findings will follow under a separate dictation. No significant surgical valvular pathology was seen. The patient was positioned prepped and draped. Pressure and contact points were protected. An appropriate timeout was conducted. [facility] Bypass: A LEFT lower extremity incision was made and the greater saphenous vein was procured using an endoscopic vein harvesting technique. The vein was prepared in the usual fashion and the incisions were closed in the usual manner. The vein had ADEQUATE caliber and size and had ADEQUATE flow. Simultaneously, a median sternotomy was employed and the left internal mammary artery was harvested in a skeletonized and pedicled fashion. The internal mammary artery had adequate caliber and flow. Prior to division of the left internal mammary artery, heparin was administered to obtain an ACT of greater than 400 seconds. The pericardium was open, marsupialized, and pursestrings were placed in preparation for central cannulation. Central cannulation progressed with a standard aortic cannula in the distal ascending aorta, a cardioplegia needle in the proximal ascending aorta and a multistage venous cannula via the right a (more content not included)... Normal [facility] PHOSPHORUSon 05-10-2024 Phosphate [Mass/Vol] 4.0 mg/dL Normal 2.3-4.7 [facility] Comment on above: Performed By: #### L [id number], [id number], [id number] ####Export Freight Clerk: DANIELLA PEREZ ([id number])[address] Phosphate [Mass/Vol] 3.4 mg/dL Normal 2.3-4.7 [facility] Comment on above: Performed By: #### L [id number], [id number], [id number] ####Export Freight Clerk: DANIELLA PEREZ ([phone])[facility])[address] [place] [address] PROTIME AND APTTon aPTT Coag (Bld) [Time] 27.6 s Normal 20.0-30.5 [facility] Comment on above: Performed By: #### L [id number], [id number] ####Export Freight Clerk: DANIELLA PEREZ ([phone])[facility])[address] [place] [address] INR Coag (PPP) [Relative time] 1.3 {INR} High 0.9-1.1 [facility] Comment on above: Result Comment: Poli mmended Anticoagulant Therapy: SEE BELOW ----- INR of 2.0 - 3.0 : - Prophylaxis of Venous Thrombosis (high-risk surgery) - Treatment of Venous Thrombosis - Treatment of Pulmonary Embolism (Includes tissue heart valves, Acute Myocardial Infarction to prevent systemic embolism, Valvular Heart Disease, and Atrial Fibrillation) ----- INR of 2.5 - 3.5 : - Mechanical Prosthetic Valves (high risk) - If oral anticoagulant therapy is used to prevent Myocardial Infarction Performed By: #### L [id number], [id number] ####Export Freight Clerk: DANIELLA PEREZ ([phone])[facility] ([facility])[address] [place] [address] PT Coag (PPP) [Time] 14.3 s High 9.0-12.0 [facility] Comment on above: Performed By: #### Verito [id number], [id number] ####Export Freight Clerk: DANIELLA PEREZ ([phone])[facility] ([facility])[address] [place] [address] Phosphate [Moles/Vol]on 04-22 Phosphate [Mass/Vol] 4 mg/dL 2.3 - 4 .7 mg/dL [facility] Interpretation and review of laboratory results Normal [facility] Phosphate [Mass/Vol] 3.4 mg/dL 2.3 - 4 .7 mg/dL [facility] Progress Noteon 05-10-2024 Progress Note Transfusion Medicine Resident Review Note Product type: 1 unit pRBC, O+ Reason for Review: Hemoglobin >7.0 g/dL Indications for Transfusion: 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 Please contact the blood bank if there are any issues receiving the product for transfusion at *[phone] ([facility]) or *[phone] ([facility]) Comment: Close clinical monitoring is indicated to avoid transfusion associated circulatory overload (TACO) during transfusion of patients with impaired cardiac function. Strategies such as slower infusion rates (1 ml/kg body weight/hour), decreasing transfusion volume, and prophylactic use of diuretics for volume reduction may reduce the risk in clinically appropriate patients. Normal [facility] Progress Note Extubated to 5 L NC Normal [facility] US Heart Transesophagealon 0 05-10-2024 CV CPACS HEMO US Heart TransesophagealOrde red By: Jo Saenz on 05-10-2024 [facility] Work Phone: XR CHEST 1 VIEWon 05-10-2024 XR CHEST 1 VIEW Patient Name: FARHANA THRASHER : 1940 [facility]#: [id number] Exam Date/Time: 05/10/2024 12:51 Procedure: XR CHEST 1 VIEW Ordering Provider: HANDY KYLE Reason For Exam: Post op open heart surgery EXAMINATION: CHEST RADIOGRAPH (SINGLE VIEW AP OR PA) Clinical History: Post op open heart surgery Comparison: Two-view chest radiograph 2024 RESULT: See impression IMPRESSION: Lines, tubes, and devices: Interval placement of endotracheal tube which terminates 3.7 cm above the mickey. Interval placement of enteric tube which is poorly visualized in the distal esophagus, though noted to terminate in the expected location of the stomach. Interval right IJ approach pulmonary artery catheter with tip in projecting over the right hilum. Interval placement of mediastinal drain and right basilar chest tube. Additional lines project over and partially obscure the chest. Lungs and pleura: No consolidation. No sizable pleural effusion or pneumothorax. Cardiomediastinal silhouette: Stable cardiomediastinal silhouette.Atheroscle rotic calcifications of the aortic arch. Status post median sternotomy for CABG. 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 [id number] 05-04-2024 [id number] Medication List Accurate as of May 04, 2024 11:47 AM. Always use your most recent med list. amLODIPine 5 MG tablet Commonly known as: Norvasc Medication Adjustments for Surgery: Take night before surgery aspirin 81 MG EC tablet Medication Adjustments for Surgery: Take night before surgery Notes to patient: CONTINUE TO TAKE PRIOR TO SURGERY. atorvastatin 10 MG tablet Commonly known as: Lipitor Medication Adjustments for Surgery: Take night before surgery CALCIUM 500 + D3 PO Medication Adjustments for Surgery: Other (Comment) Notes to patient: HOLD 7 DAYS PRIOR TO SURGERY. START HOLDING NOW. carbidopa-levodopa 25-100 MG tablet Commonly known as: Sinemet Medication Adjustments for Surgery: Take morning of surgery empagliflozin 25 MG Commonly known as: Jardiance Medication Adjustments for Surgery: Other (Comment) Notes to patient: HOLD 48 HOURS PRIOR TO SURGERY insulin glargine-lixisenatide 100-33 UNT-MCG/ML pen Commonly known as: Soliqua Medication Adjustments for Surgery: Other (Comment) Notes to patient: PATIENT INSTRUCTED TO ONLY TAKE 34 UNITS OF SOLIQUA INSULIN THE MORNING OF SURGERY. LUBRICANT EYE DROP OP Medication Adjustments for Surgery: Take night before surgery metFORMIN 1000 MG tablet Commonly known as: Glucophage Medication Adjustments for Surgery: Other (Comment) Notes to patient: HOLD 48 HOURS PRIOR TO SURGERY metoprolol succinate XL 25 MG 24 hr tablet Commonly known as: Toprol-XL Medication Adjustments for Surgery: Hold morning of surgery Miconazole Nitrate 2 % ointment Medication Adjustments for Surgery: Hold morning of surgery mupirocin 2 % ointment Commonly known as: Bactroban Apply liberal amount per nostril the night before surgery and then again the morning of surgery Medication Adjustments for Surgery: Other (Comment) Notes to patient: PATIENT INSTRUCTED TO USE NASAL OINTMENT THE NIGHT BEFORE SURGERY AND THE MORNING OF SURGERY. triamcinolone 0.1 % ointment Commonly known as: Kenalog Medication Adjustments for Surgery: Hold morning of surgery Vibegron 75 MG tablet Medication Adjustments for Surgery: Take morning of surgery Additional Instructions: You may take your prescription pain medication. You may take Tylenol for pain. NO Motrin, ibuprofen or Advil for 7 days prior to surgery or longer if instructed by your surgeon. NO Aleve or Naprosyn for 7 days prior to surgery or longer if instructed by your surgeon. IF YOU TAKE BLOOD THINNERS OR ASPIRIN: CONTINUE TO TAKE ASPIRIN PRIOR TO SURGERY. Basal Insulin: If you are using long acting insulin in the morning, take 34 units of SOLIQUA insulin the morning of surgery. IF YOUR BLOOD SUGAR IS 250 OR GREATER ON THE DAY OF SURGERY, THERE MAY BE A POSSIBILITY THAT YOUR SURGERY MAY BE CANCELED. PATIENT INSTRUCTED TO USE NASAL OINTMENT (BACTROBAN) AND ORAL RINSE( CHLORHEXIDINE GLUCONATE) THE NIGHT BEFORE SURGERY AND THE MORNING OF SURGERY PER SURGEONS INSTRUCTIONS. Follow any instructions given to you by Dr. VELASCO Showhaley with an antibacterial soap such as Dial or Safeguard or shower kit provided to you before coming to the hospital. No makeup, lotion, powder, deodorant or body spays. No hair products. Remove all jewelry and leave it at home. Wear loose comfortable clothing to go home in. You may brush your teeth morning of surgery. Do not wear contacts day of surgery. No marijuana (THC), smoking or alcohol for 24 hours prior to surgery. Please arrange for a responsible adult to drive you home after your surgery and that there is a responsible adult with you for 24 hours post discharge. If you have specific questions, please call your surgeon. You will receive a call the day before your surgery to verify your arrival time and date. You will be asked to arrive at least two hours prior to your scheduled surgery time. Please bring your [facility] Surgical folder and medication list with you day of surgery. We encourage you to write down any questions you may have for the surgeon, anesthesiologist, or other members of the surgical team and bring it with you the day of surgery. Please bring photo ID and insurance information. Normal [facility] [id number] 05-04-2024 [id number] Patient instructed t o bring CPAP machine and mask with him on the day of surgery. Patient understood. Normal [facility] [id number] Labs obtained on 1 attempt with 22 gauge needle at [facility] site. Patient tolerated well, site benign. Normal [facility] BLOOD TYPE AND SCREEN GELon 05-04-2024 ABO GROUPING O Normal [facility] Comment on above: Performed By: #### L [id number] ####Export Freight Clerk: DANIELLA PEREZ ([phone])[facility] ([facility])[address] [place] [address] RH TYPE IN BLOOD Positive Normal [facility] Comment on above: Performed By: #### L [id number] ####Export Freight Clerk: DANIELLA PEREZ ([phone])[facility] ([facility])[address] [place] [address] CBC (HEMOGRAM)on 05-04-2024 Erythrocyte distribution width (RBC) [Ratio] 14.1 % Normal 11.5-15.0 [facility] Comment on above: Performed By: #### L [id number] ####Export Freight Clerk: DANIELLA PEREZ ([phone])[facility])[address] [place] [address] Hematocrit (Bld) [Volume fraction] 42.3 % Normal 40.0-52.0 [facility] Comment on above: Performed By: #### L [id number] ####Export Freight Clerk: DANIELLA PEREZ ([phone])[facility])[address] [place] [address] Hemoglobin (Bld) [Mass/Vol] 13.4 g/dL Normal 13.0-18.0 [facility] Comment on above: Performed By: #### L [id number] ####Export Freight Clerk: DANIELLA PEREZ ([phone])[facility])[address] [place] [address] MCH (RBC) [Entitic mass] 26.9 pg Normal 26.0-34.0 [facility] Comment on above: Performed By: #### L [id number] ####Export Freight Clerk: DANIELLA PEREZ ([phone])[facility])[address] [place] [address] MCHC 31.7 % Normal 30.5-36.0 [facility] Comment on above: Performed By: #### L [id number] ####Export Freight Clerk: DANIELLA PEREZ ([phone])[facility])[address] [place] [address] MCV (RBC) [Entitic vol] 84.8 fL Normal 77.0-99.0 [facility] Comment on above: Performed By: #### L [id number] ####Export Freight Clerk: DANIELLA PEREZ ([id number])[facility] ([facility])[address] [place] [address] Platelet mean volume (Bld) [Entitic vol] 9.6 fL Normal 9.0-12.7 [facility] Comment on above: Performed By: #### L [id number] ####Export Freight Clerk: DANIELLA PEREZ ([phone])[facility] ([facility])[address] [place] [address] Platelets (Bld) [#/Vol] 199 10*3/uL Normal 140-440 [facility] Comment on above: Performed By: #### L [id number] ####Export Freight Clerk: DANIELLA PEREZ ([phone])[facility] ([facility])[address] [place] [address] RBC (Bld) [#/Vol] 4.99 10*6/uL Normal 4.40-5.90 [facility] Comment on above: Performed By: #### L [id number] ####Export Freight Clerk: DANIELLA PEREZ ([phone])[facility] ([facility])[address] [place] [address] WBC (Bld) [#/Vol] 5.2 10*3/uL Normal 3.6-10.7 [facility] Comment on above: Performed By: #### L [id number] ####Export Freight Clerk: DANIELLA PEREZ ([phone])[facility] ([facility])[address] [place] [address] COMPLETE URINALYSISon 2024 BILIRUBIN, TOTAL PRESENCE IN URINE Negative Normal Negative [facility] Comment on above: Performed By: #### L [id number] ####Export Freight Clerk: DANIELLA PEREZ ([phone])[facility] ([facility])[address] [place] [address] Clarity (U) Clear Normal Clear [facility] Comment on above: Performed By: #### L [id number] ####Export Freight Clerk: DANIELLA PEREZ ([phone])[facility] ([facility])[address] [place] [address] Color (U) Colorless Normal Lt. Yellow [facility] Comment on above: Performed By: #### L [id number] ####Export Freight Clerk: DANIELLA PEREZ ([phone])[facility] ([facility])[address] [place] [address] GLUCOSE (MG/DL) IN URINE 1,000 mg/dL Abnormal Nor mal (<70) [facility] Comment on above: Performed By: #### L [id number] ####Export Freight Clerk: DANIELLA PEREZ ([phone])[facility] ([facility])[address] [place] [address] HEMOGLOBIN PRESENCE IN URINE Negative Normal Negative [facility] Comment on above: Performed By: #### L [id number] ####Export Freight Clerk: DANIELLA PEREZ ([phone])[facility] ([facility])[address] [place] [address] Ketones Ql (U) Negative Normal Negative [facility] Comment on above: Performed By: #### L [id number] ####Export Freight Clerk: DANIELLA PEREZ ([id number])[facility])[address] [place] [address] LEUKOCYTE ESTERASE PRESENCE IN URINE BY TEST STRIP Negative Normal Negative [facility] Comment on above: Performed By: #### L [id number] ####Export Freight Clerk: DANIELLA PEREZ ([phone])[facility] ([facility])[address] [place] [address] NITRITE PRESENCE IN URINE Negative Normal Negative [facility] Comment on above: Performed By: #### L [id number] ####Export Freight Clerk: DANIELLA PEREZ ([phone])[facility])[address] [place] [address] pH (U) 5.5 [pH] Normal 5.0-8.0 [facility] Comment on above: Performed By: #### L [id number] ####Export Freight Clerk: DANIELLA PEREZ ([id number])[facility] ([facility])[address] [place] [address] Protein (U) [Mass/Vol] Negative Normal Negative [facility] Comment on above: Performed By: #### L [id number] ####Export Freight Clerk: DANIELLA PEREZ ([phone])[facility])[address] [place] [address] Specific gravity (U) [Rel density] 1.008 Normal 1.005-1.030 [facility] Comment on above: Performed By: #### L [id number] ####Export Freight Clerk: DANIELLA PEREZ ([phone])[facility])[address] [place] [address] UROBILINOGEN (MG/DL) IN URINE Normal Normal Normal (0-1) [facility] Comment on above: Performed By: #### L [id number] ####Export Freight Clerk: DANIELLA PEREZ ([phone])[facility])[address] [place] [address] COMPREHENSIVE METABOLIC PANE Venkata 05-04-2024 Albumin [Mass/Vol] 3.8 g/dL Normal 3.4-4.8 [facility] Comment on above: Performed By: #### L AB17 ####Export Freight Clerk: DANIELLA PEREZ ([phone])[facility])[address] [place] [address] ALP [Catalytic activity/Vol] 86 U/L Normal 40-150 [facility] Comment on above: Performed By: #### L AB17 ####Export Freight Clerk: DANIELLA PEREZ ([phone])[facility])[address] [place] [address] ALT [Catalytic activity/Vol] 12 U/L Normal <40 [facility] Comment on above: Performed By: #### L AB17 ####Export Freight Clerk: DANIELLA PEREZ ([id number])[facility])[address] [place] [address] Anion gap [Moles/Vol] 9 mmol/L Normal 3-13 [facility] Comment on above: Performed By: #### L AB17 ####Export Freight Clerk: DANIELLA PEREZ ([id number])[facility] ([facility])[address] [place] [address] AST [Catalytic activity/Vol] 19 U/L Normal <34 [facility] Comment on above: Performed By: #### L AB17 ####Export Freight Clerk: DANIELLA PEREZ ([id number])[facility] ([facility])[address] [place] [address] Bilirubin [Mass/Vol] 0.4 mg/dL Normal <1.2 [facility] Comment on above: Performed By: #### L AB17 ####Export Freight Clerk: DANIELLA PEREZ ([phone])[facility] ([facility])[address] [place] [address] Calcium [Mass/Vol] 9.6 mg/dL Normal 8.8-10.0 [facility] Comment on above: Performed By: #### L AB17 ####Export Freight Clerk: DANIELLA PEREZ ([phone])[facility] [place] [address] [place] Chloride [Moles/Vol] 103 mmol/L Normal 98-107 [facility] Comment on above: Performed By: #### L AB17 ####Export Freight Clerk: DANIELLA PEREZ ([phone])[facility] ([facility])[address] [place] [address] [place] CO2 [Moles/Vol] 25 mmol/L Normal 23-31 [facility] Comment on above: Performed By: #### L AB17 ####Export Freight Clerk: DANIELLA PEREZ ([id number])[facility] ([facility])[address] [place] [address] [place] Creatinine [Mass/Vol] 0.94 mg/dL Normal 0.72-1.25 [facility] Comment on above: Performed By: #### L AB17 ####Export Freight Clerk: DANIELLA PEREZ ([phone])[facility] ([facility])[address] [place] [address] GLOMERULAR FILTRATION RATE ML/MIN/1.73 SQ M.PREDICTED 80.9 mL/min/1.73m*2 Normal >60.0 [facility] [facility] Comment on above: Result Comment: Calc ulation based on the Chronic Kidney Disease Epidemiology Collaboration (CKD-EPI) equation refit without adjustment for race Performed By: #### L [id number] ####Export Freight Clerk: DANIELLA PEREZ ([id number])[facility])[address] [place] [address] Glucose [Mass/Vol] 90 mg/dL Normal 82-115 [facility] Comment on above: Performed By: #### L [id number] ####Export Freight Clerk: DANIELLA PEREZ ([id number])[address] Potassium [Moles/Vol] 3.8 mmol/L Normal 3.5-5.1 [facility] Comment on above: Result Comment: [facility] potassium values may be up to 0.5 mmol/L lower than serum values. Performed By: #### L [id number] ####Export Freight Clerk: DANIELLA PEREZ ([phone])[address] Protein [Mass/Vol] 6.7 g/dL Normal 6.4-8.3 [facility] Comment on above: Performed By: #### L [id number] ####Export Freight Clerk: DANIELLA PEREZ ([id number])[address] Sodium [Moles/Vol] 137 mmol/L Normal 136-145 [facility] Comment on above: Performed By: #### L [id number] ####Export Freight Clerk: DANIELLA PEREZ ([id number])[address] Urea nitrogen [Mass/Vol] 21 mg/dL Normal 9-23 [facility] Comment on above: Performed By: #### L [id number] ####Export Freight Clerk: DANIELLA PEREZ ([phone])[facility] ([facility])[address] [place] [address] HEMOGLOBIN A1Con 05-04-2024 Glucose [Mass/Vol] 166 mg/dL Normal [facility] Comment on above: Result Comment: JEAN CARLOS R COMMENTS: HbA1c values of 5.7-6.4 percent indicate an increased risk for developing diabetes mellitus. HbA1c values greater than or equal to 6.5 percent are diagnostic of diabetes mellitus. For diagnosis of diabetes in individuals without unequivocal hyperglycemia, results should be confirmed by repeat testing. Performed By: #### L [id number] ####Export Freight Clerk: DANIELLA PEREZ ([phone])[facility])[address] [place] [address] HEMOGLOBIN A1C 7.4 %HbA1C High <5.7 [facility] Comment on above: Result Comment: Norm al less than 5.7% Prediabetes 5.7% to 6.4% Diabetes 6.5% or higher --HgbA1C levels may not be accurate in patients who have renal disease, received recent blood transfusions, are anemic, or who have dyshemoglobinemia. Performed By: #### L [id number] ####Export Freight Clerk: DANIELLA PEREZ ([phone])[address] MRSA BY PCRon 05-04-2024 MRSA BY PCR STAPHYLOCOCCUS AUREU S Reference Not Detected Not Detected MECA GENE Reference Not Detected Not Detected ORDER COMMENTS: No Staphylococcus aureus detected. Negative nasal MRSA PCR has a high negative predictive value for MRSA pneumonia. Consider stopping Vancomycin if no other clinical indication. Contact Antimicrobial Stewardship for further recommendations. Staphylococcus aureus nasal screen by real-time PCR. This test was modified and its performance characteristics determined by [facility]. The U. S. Food and Drug Administration has not approved or cleared this test; however, FDA clearance or approval is not currently required for clinical use. The results are not intended to be used as the sole means for clinical diagnosis or patient management decisions. Normal [facility] Comment on above: Performed By: #### L [id number] #### Export Freight Clerk: DANIELLA PEREZ ([id number]) [facility]) [address] [place] [address] PROTIME AND APTTon aPTT Coag (Bld) [Time] 31.6 s High 20.0-30.5 [facility] Comment on above: Performed By: #### L [id number] ####Export Freight Clerk: DANIELLA PEREZ ([id number])[facility])[address] [place] [address] INR Coag (PPP) [Relative time] 1.1 {INR} Normal 0.9-1.1 [facility] Comment on above: Result Comment: Poli mmended Anticoagulant Therapy: SEE BELOW ----- INR of 2.0 - 3.0 : - Prophylaxis of Venous Thrombosis (high-risk surgery) - Treatment of Venous Thrombosis - Treatment of Pulmonary Embolism (Includes tissue heart valves, Acute Myocardial Infarction to prevent systemic embolism, Valvular Heart Disease, and Atrial Fibrillation) ----- INR of 2.5 - 3.5 : - Mechanical Prosthetic Valves (high risk) - If oral anticoagulant therapy is used to prevent Myocardial Infarction Performed By: #### Verito [id number] ####Export Freight Clerk: DANIELLA PEREZ ([id number])[facility])[address] [place] [address] PT Coag (PPP) [Time] 12.1 s High 9.0-12.0 [facility] Comment on above: Performed By: #### L [id number] ####Export Freight Clerk: DANIELLA PEREZ ([id number])[address] Progress Noteon 05-04-2024 Progress Note [facility] Farhana Thrasher : 1940 Primary Care Physician: No primary care provider on file. The patient and/or family/surrogate voluntarily agreed to participate in ACP services. Patient?s cognitive capacity: Patient is Alert and [place] to person, place and time Code Status: [x] [FULL CODE - Continue all advanced life support: CPR,intubation,invasi ve procedures] [_] [DNR-CCA - DO NOT do CPR, intubation] [_] [DNR-POSITIVE PRINTER OPERATOR - Comfort care only] [_] DNR form [was/was not] signed Summary of discussion: The patient health care POA/ surrogate is the following: None. [Condition that instigated the ACP on this DOS, relevant PMH, functional status, goals of care, and whom this was discussed with including names and relationship to the patient, and any relevant advance care documentation discussion] I answered all the patient/family questions that I could within the range and scope of the current medical situation. We discussed the medical conditions, risks, benefits, outcomes, and goals of care at this time for the patient's medical issues at hand in the face of the patient's chronic issues and current presentation. Total time spent: 2 minutes were spent discussing the patient's resuscitation status, advance care planning, and end of life care, with patient and/or family/surrogate. Azam Mcbride APRN - [employer] Acute care [facility] 05/04/2024, 12:47 PM [facility] XR CHEST 2 VIEWSon 5 XR CHEST 2 VIEWS Patient Name: FARHANA THRASHER : 1940 Exam Date/Time: 05/04/2024 13:00 Procedure: XR CHEST 2 VIEWS Ordering Provider: MCBRIDE NICOLE Reason For Exam: PREOPERATIVE ANESTHESIA CHEST X-RAY TWO VIEWS CLINICAL INDICATION: PREOPERATIVE ANESTHESIA TECHNIQUE: Frontal and lateral views of the chest. COMPARISON: None FINDINGS: Lungs show no significant consolidation. No pleural effusion or pneumothorax. No vascular congestion. Heart size normal. IMPRESSION: 1. No acute finding. Report Dictated on Electronically Signed By: Wagner Mclean MD Electronically Signed Date/Time: 05/04/2024 9:[address] [facility] XR Chest 2 Viewson 5 1. No acute finding. Report Dictated on Electronically Signed By: Wagner Mclean MD Electronically Signed Date/Time: 05/04/2024 9:02 PM EDT [facility] Patient Name: FARHANA THRASHER : 1940 Exam Date/Time: 05/04/2024 13:00 Procedure: XR CHEST 2 VIEWS Ordering Provider: MCBRIDE NICOLE Reason For Exam: PREOPERATIVE ANESTHESIA CHEST X-RAY TWO VIEWS CLINICAL INDICATION: PREOPERATIVE ANESTHESIA TECHNIQUE: Frontal and lateral views of the chest. COMPARISON: None FINDINGS: Lungs show no significant consolidation. No pleural effusion or pneumothorax. No vascular congestion. Heart size normal. [facility] Wagner Mclean MD - 05/04/2024 Patient Name: [facility]ARHANA [facility] 1940 [id number] Exam Date/Time: 05/04/2024 13:00 Procedure: XR CHEST 2 VIEWS Ordering Provider: MCBRIDE NICOLE Reason For Exam: PREOPERATIVE ANESTHESIA CHEST X-RAY TWO VIEWS CLINICAL INDICATION: PREOPERATIVE ANESTHESIA TECHNIQUE: Frontal and lateral views of the chest. COMPARISON: None FINDINGS: Lungs show no significant consolidation. No pleural effusion or pneumothorax. No vascular congestion. Heart size normal. IMPRESSION: 1. No acute finding. Report Dictated on Electronically Signed By: Wagner Mclean MD Electronically Signed Date/Time: 05/04/2024 9:02 PM EDT [facility] Radiology Study observation (narrative) [facility] XR Chest 2 ViewsOrdered By: Wagner Mclean on 05-04-2024 [facility] Work Phone: 29on 04-25-2024 29 Addended by: CARTER LE on: 04/25/2024 01:57 PM Modules accepted: Orders Normal [facility] Office Visiton 04-25-2024 Follow-up visit [id number] Marcus Thrasher 1940 M Date Provider Department Center 04/25/2024 [id number] [facility] None Family History Problem Relation Age of Onset Stroke Mother COPD Father Coronary artery disease Father Coronary artery disease Brother Heart attack Brother Family Status - Relation Status Age at Mother Father Brother Level of Service:17282 NE OFFICE/OUTPATIENT NEW HIGH MDM 60 MINUTES Reason for Visit and Comments: New Patient [542] Normal [facility] Progress Noteon 04-25-2024 Progress Note Pre op teaching done with patient. Instructed to hold NSAIDS 7 days prior to surgery. All other medications per PAT protocol. Pharmacy confirmed. All questions answered. Normal [facility] Progress Note [facility]ARD[facility]ORACIC SURGERY [address] [facility] [address] Dept: [phone] Dept Loc: [phone] Visit type: New Reason for Visit: Multivessel coronary artery disease evaluate for CABG Assessment: This 84-year-old gentleman has had progressive angina. A stress test was performed which was abnormal. This led to a subsequent cardiac catheterization which revealed multivessel coronary artery disease. The patient has been active but is limited by parkinsonism (manifested by an intention tremor), diabetes mellitus, and neuropathy in both lower extremities for which she uses a cane and leg braces when he leaves the house. His echo shows a normal ejection fraction without valvular pathology. His carotids showed no evidence of obstructive disease. We discussed the options for treatment, which include medication, PCI/stents, and CABG. We have opted to proceed with CABG as the most durable solution to this patient's multivessel coronary artery disease with proximal LAD lesion in the background of diabetes. While his recovery may take a bit longer due to his diabetic neuropathy, I believe his perioperative risk remains low, at approximately 2%. The overall risks benefits and alternatives were discussed with the patient and we will proceed with coronary bypass surgery which would include grafts to his LAD, the distal circumflex coronary artery, and the right coronary artery. History of Present Illness Marcus Thrasher is a 84 y.o. male referred by Dr. Elder for CABG. Per note, pt has history of CAD, carotid artery disease, dyslipidemia, DM, and Parkinsonism. Pt saw Cardiology on 03/23/24 and reported SOB and chest burning with exertion a month prior. Stress test was ordered which showed moderate size reversible perfusion defect of the lateral wall suggestive of ischemia. Echocardiogram was also completed which demonstrated mild to moderate mitral valve insufficiency. Pt then underwent a heart catheterization on 04/24/24 which demonstrated severe multivessel CAD. Pt is here now for an evaluation. Past Medical History Past Medical History: Diagnosis Date Carotid arterial disease (HCC) Coronary artery disease Diabetes mellitus (HCC) Dyslipidemia GERD (gastroesophageal reflux disease) Hypertension Malignant neoplasm of prostate (HCC) Parkinsonism (HCC) Past Surgical History Past Surgical History: Procedure Laterality Date CATARACT EXTRACTION CHOLECYSTECTOMY PROSTATECTOMY TONSILLECTOMY Family History Family History Problem Relation Name Age of Onset Stroke Mother COPD Father Coronary artery disease Father Coronary artery disease Brother Heart attack Brother Social History Social History Tobacco Use Smoking status: Never Smokeless tobacco: Never Allergies Allergies Allergen Reactions Rosuvastatin Other Reaction(s): Flu like symptoms Tape Other Reaction(s): skin tears Medications Current Outpatient Medications: atorvastatin (Lipitor) 40 MG tablet, Take 20 mg by mouth Nightly., Disp: , Rfl: Calcium Carb-Cholecalciferol (CALCIUM 500 + D3 PO), Take 1 tablet by mouth daily., Disp: , Rfl: carbidopa-levodopa (Sinemet) 25-100 MG tablet, Take 1 tablet by mouth 3 times daily., Disp: , Rfl: empagliflozin (Jardiance) 25 MG, Take 25 mg by mouth daily., Disp: , Rfl: insulin glargine (Lantus) 100 UNIT/ML injection, Inject 45 Units under the skin every morning., Disp: , Rfl: metFORMIN (Glucophage) 1000 MG tablet, Take 1,000 mg by mouth 2 times daily (with meals)., Disp: , Rfl: metoprolol succinate XL (Toprol-XL) 25 MG 24 hr tablet, Take 12.5 mg by mouth daily. Do not crush or chew., Disp: , Rfl: triamcinolone (Kenalog) 0.1 % lotion, Apply 1 Application topically Daily as needed., Disp: , Rfl: Vibegron 75 MG tablet, Take 1 tablet by mouth daily., Disp: , Rfl: Review of Systems Review of Systems Respiratory: Positive for chest tightness (intermittent chest burning on exertion) and shortness of breath (intermittent on exertion). All other systems reviewed and are negative. Physical Exam Vitals: There were no vitals taken for this visit. Constitutional: General: Not in acute distress. Appearance: Normal appearance. Not toxic-appearing. Ear, nose, mouth: Bilateral external ear and nose normal. Nose: Nose normal. Mouth: Appearance normal, no bleeding, moist mucus membranes Eyes: General: No scleral icterus. No discharge from bilateral eyes Extraocular Movements: Extraocular movements intact. Pupils equal and reactive bilaterally Cardiovascular: Heart: Regular rhythm. Normal heart sounds. Vascular: No carotid bruit. Edema: no edema in bilateral lower extremities Pulmonary: Effort: Pulmonary effort is normal. No respiratory distress. Breath sounds: Normal breath sounds. No wheezing. Chest wall: No tenderness. Abdominal: Julio Cesar (more content not included)... Normal [facility] Cardiac Cath Diagnosticon Cardiac Cath Diagnostic Normal [facility] Absolute lymphocyte countOrd ered By: Raven Thrasher on 04-21-2024 Lymphocytes Auto (Unsp spec) [#/Vol] 1.33 10*3/uL 0.83-4.51 [facility] Absolute neutrophil countOrd ered By: Raven Thrasher on 04-21-2024 Neutrophils (Bld) [#/Vol] 5.7 10*3/uL 2.0-7.7 [facility] Automated lymphocyte count a s percentage of total leukocytesOrdered By: Raven Thrasher on 04-21-2024 Lymphocytes/100 WBC Auto (Unsp spec) 16.4 % Low 19-41 [facility] BUN/creatinine ratioOrdered By: Raven Thrasher on 04-21-2024 Urea nitrogen/Creatinine [Mass ratio] 24.5 mg/mg High 10-20 [facility] Basic Metabolic Profile (BMP )on 04-21-2024 Anion gap [Moles/Vol] 14 mmol/L Normal 5-15 [facility] Comment on above: Performed By: #### L 500.2500, L100.0100, L300.3900 ####[facility] [address] [place], [address] BUN/CRE 24.5 RATIO High 10- [facility] Comment on above: Performed By: #### L 500.2500, L100.0100, L300.3900 ####[facility] [address] [place], [address] Calcium [Mass/Vol] 9.3 mg/dL Normal 7.6-11.0 [facility] Comment on above: Performed By: #### L 500.2500, L100.0100, L300.3900 ####[facility] [address] [place], [address] Chloride [Moles/Vol] 104 mmol/L Normal 96-108 [facility] Comment on above: Performed By: #### L 500.2500, L100.0100, L300.3900 ####[facility] [address] [place], [address] CO2 [Moles/Vol] 21.9 mmol/L Low 22.0-29.0 [facility] Comment on above: Performed By: #### L 500.2500, L100.0100, L300.3900 ####[facility] [address] [place], [address] Creatinine [Mass/Vol] 0.96 mg/dL Normal 0.70-1.20 [facility] Comment on above: Performed By: #### L 500.2500, L100.0100, L300.3900 ####[facility] [address] [place], [address] GFR/1.73 sq M.predicted among non-blacks MDRD (S/P/Bld) [Vol rate/Area] 79 mL/min/{1.73_m2} Normal >60 [facility] Comment on above: Result Comment: mL/m in/1.73m2 CKD-EPI Creatinine Equation (2020) Performed By: #### L 500.2500, L100.0100, L300.3900 ####[facility] [address] [place], [address] Glucose [Mass/Vol] 149 mg/dL High 70-99 [facility] Comment on above: Performed By: #### L 500.2500, L100.0100, L300.3900 ####[facility] [address] [place], [address] Potassium [Moles/Vol] 4.6 mmol/L Normal 3.3-5.1 [facility] Comment on above: Performed By: #### L 500.2500, L100.0100, L300.3900 ####[facility] [address] [place], [address] Sodium [Moles/Vol] 139 mmol/L Normal 133-145 [facility] Comment on above: Performed By: #### L 500.2500, L100.0100, L300.3900 ####[facility] [address] [place], [address] Urea nitrogen [Mass/Vol] 24 mg/dL High 4-19 [facility] Comment on above: Performed By: #### L 500.2500, L100.0100, L300.3900 ####[facility] [address] [place], [address] Basophil percentageOrdered B y: Raven Thrasher on 04-21-2024 Basophils/100 WBC (Bld) 0.7 % 0-1 [facility] CBC W/Diff, Automatedon 03-26 Absolute Lymph 1.33 X10 3/uL Normal 0.83-4.51 [facility] Comment on above: Performed By: #### L 500.2500, L100.0100, L300.3900 ####[facility] [address] [place], [address] Absolute Neut 5.7 X10 3/uL Normal 2.0-7.7 [facility] Comment on above: Performed By: #### L 500.2500, L100.0100, L300.3900 ####[facility] [address] [place], [address] Basophils/100 WBC (Bld) 0.7 % Normal 0-1 [facility] Comment on above: Performed By: #### L 500.2500, L100.0100, L300.3900 ####[facility] [address] [place], [address] Eosinophils/100 WBC (Bld) 1.0 % Normal 0-5 [facility] Comment on above: Performed By: #### L 500.2500, L100.0100, L300.3900 ####[facility] [address] [place], [address] Erythrocyte distribution width (RBC) [Ratio] 14.1 % Normal 11.6-14.6 [facility] Comment on above: Performed By: #### L 500.2500, L100.0100, L300.3900 ####[facility] [address] [place], [address] Hematocrit (Bld) [Volume fraction] 40.8 % Normal 40-54 [facility] Comment on above: Performed By: #### L 500.2500, L100.0100, L300.3900 ####[facility] [address] [place], [address] Hemoglobin (Bld) [Mass/Vol] 13.3 g/dL Normal 13.0-16.5 [facility] Comment on above: Performed By: #### L 500.2500, L100.0100, L300.3900 ####[facility] [address] [place], [address] IG% 0.900 Normal 0.0-0.9 [facility] Comment on above: Result Comment: IG% - Immature Granulocytes (promyelocytes, myelocytes andmetamyelocytes) > 1% indicates that a LEFT SHIFT is Present. Performed By: #### L 500.2500, L100.0100, L300.3900 ####[facility] [address] [place], [address] Lymphocytes/100 WBC (Bld) 16.4 % Low 19-41 [facility] Comment on above: Performed By: #### L 500.2500, L100.0100, L300.3900 ####[facility] [address] [place], [address] MCH (RBC) [Entitic mass] 27.8 pg Normal 27.0-32.0 [facility] Comment on above: Performed By: #### L 500.2500, L100.0100, L300.3900 ####[facility] [address] [place], [address] MCHC (RBC) [Mass/Vol] 32.6 g/dL Normal 32-36 [facility] Comment on above: Performed By: #### L 500.2500, L100.0100, L300.3900 ####[facility] [address] [place], [address] MCV (RBC) [Entitic vol] 85.2 fL Normal 80-94 [facility] Comment on above: Performed By: #### L 500.2500, L100.0100, L300.3900 ####[facility] [address] [place], [address] Monocytes/100 WBC (Bld) 11.1 % High 0-10 [facility] Comment on above: Performed By: #### L 500.2500, L100.0100, L300.3900 ####[facility] [address] [place], [address] Neutrophils/100 WBC (Bld) 69.9 % Normal 47-70 [facility] Comment on above: Performed By: #### L 500.2500, L100.0100, L300.3900 ####[facility] [address] [place], [address] Nucleated RBC (Bld) [#/Vol] 0 10*3/uL Normal 0-5 [facility] Comment on above: Performed By: #### L 500.2500, L100.0100, L300.3900 ####[facility] [address] [place], [address] Platelet mean volume (Bld) [Entitic vol] 9.2 fL Normal 6.2-12.0 [facility] Comment on above: Performed By: #### L 500.2500, L100.0100, L300.3900 ####[facility] [address] [place], [address] Platelets (Bld) [#/Vol] 195 10*3/uL Normal 150-450 [facility] Comment on above: Performed By: #### L 500.2500, L100.0100, L300.3900 ####[facility] [address] [place], [address] RBC (Bld) [#/Vol] 4.79 10*6/uL Normal 4.6-6.2 [facility] Comment on above: Performed By: #### L 500.2500, L100.0100, L300.3900 ####[facility] [address] [place], [address] RDW SD 43.5 fl Normal 35.1-43.9 [facility] Comment on above: Performed By: #### L 500.2500, L100.0100, L300.3900 ####[facility] [address] [place], [address] WBC (Bld) [#/Vol] 8.1 10*3/uL Normal 4.4-11.0 [facility] Comment on above: Performed By: #### L 500.2500, L100.0100, L300.3900 ####[facility] [address] [place], [address] Carbon dioxide measurementOr dered By: Raven Thrasher on 04-21-2024 CO2 [Moles/Vol] 21.9 mmol/L Low 22.0-29.0 [facility] Chest PA and Lateralon 04-21 Chest PA and Lateral Normal [facility] Chloride measurementOrdered By: Raven Thrasher on 04-21-2024 Chloride [Moles/Vol] 104 mmol/L 96-108 [facility] Eosinophil percentageOrdered By: Raven Thrasher on 04-21-2024 Eosinophils/100 WBC (Bld) 1.0 % 0-5 [facility] Erythrocyte distribution wid th ratioOrdered By: Raven Thrasher on 04-21-2024 Erythrocyte distribution width (RBC) [Ratio] 14.1 % 11.6-14.6 [facility] Erythrocyte distribution wid th standard deviationOrdered By: Raven Thrasher on 04-21-2024 Erythrocyte distribution width (RBC) [Entitic vol] 43.5 fL 35.1-43.9 [facility] Erythrocyte distribution width (RBC) [Ratio] 43.5 fl 35.1-43.9 [facility] GFR/1.73 sq M.predicted [place] g non-blacks MDRD (S/P/Bld) [Vol rate/Area]Ordered By: Raven Thrasher on 04-21-2024 Estimated GFR (MDRD) Non-Af Amer 79 >60 [facility] Comment on above: mL/min/1.73m2 CKD-EP I Creatinine Equation (2020) Glomerular filtration rate ( GFR) estimation/1.73 sq m using serum, plasma, or whole bOrdered By: Raven Thrasher on 04-21-2024 GFR/1.73 sq M.predicted among non-blacks MDRD (S/P/Bld) [Vol rate/Area] 79 mL/min/{1.73_m2} >60 [facility] Comment on above: mL/min/1.73m2 CKD-EP I Creatinine Equation (2020) Hematocrit Auto (Bld) [Volum e fraction]Ordered By: Raven Thrasher on 04-21-2024 Hematocrit (Bld) [Volume fraction] 40.8 % 40-54 [facility] Hemoglobin measurementOrdere d By: Raven Thrasher on 04-21-2024 Hemoglobin (Bld) [Mass/Vol] 13.3 g/dL 13.0-16.5 [facility] Immature granulocytes/100 WB C Auto (Bld)Ordered By: Raven Thrasher on 04-21-2024 Immature granulocytes/100 WBC (Bld) 0.900 % 0.0-0.9 [facility] Comment on above: IG% - Immature Granu locytes (promyelocytes, myelocytes and metamyelocytes) > 1% indicates that a LEFT SHIFT is Present. International normalized rat io (INR) calculationOrdered By: Raven Thrasher on 04-21-2024 INR Coag (Bld) [Relative time] 1.1 {INR} [facility] Lymphocytes Auto (Unsp spec) [#/Vol]Ordered By: Raven Thrasher on 04-21-2024 Lymphocytes (Bld) [#/Vol] 1.33 10*3/uL 0.83-4.51 [facility] Lymphocytes/100 WBC Auto (Un sp spec)Ordered By: Raven Thrasher on 04-21-2024 Lymphocytes/100 WBC (Bld) 16.4 % Low 19-41 [facility] MCV (mean corpuscular volume ) determinationOrdered By: Raven Thrasher on 04-21-2024 MCV (RBC) [Entitic vol] 85.2 fL 80-94 [facility] Mean corpuscular hemoglobin (MCH) determinationOrdered By: Raven Thrasher on 04-21-2024 MCH (RBC) [Entitic mass] 27.8 pg 27.0-32.0 [facility] Mean corpuscular hemoglobin concentration (MCHC) determinationOrdered By: Raven Thrasher on 04-21-2024 MCHC (RBC) [Mass/Vol] 32.6 g/dL 32-36 [facility] Mean platelet volume determi nationOrdered By: Raven Thrasher on 04-21-2024 Platelet mean volume (Bld) [Entitic vol] 9.2 fL 6.2-12.0 [facility] Monocyte percentageOrdered B y: Raven Thrasher on 04-21-2024 Monocytes/100 WBC (Bld) 11.1 % High 0-10 [facility] Neutrophil percentageOrdered By: Raven Thrasher on 04-21-2024 Neutrophils/100 WBC (Bld) 69.9 % 47-70 [facility] Nucleated red blood cell per centageOrdered By: Raven Thrasher on 04-21-2024 Nucleated RBC/100 WBC (Bld) [Ratio] 0 % 0-5 [facility] Platelet countOrdered By: Lynette Thrasher on 04-21-2024 Platelets (Bld) [#/Vol] 195 10*3/uL 150-450 [facility] Prothrombin Time w/INRon INR Coag (PPP) [Relative time] 1.1 {INR} Normal [facility] Comment on above: Performed By: #### L 500.2500, L100.0100, L300.3900 ####[facility] [address] [place], [address] PT Coag (PPP) [Time] 14.2 s Normal 11.7-14.9 [facility] Comment on above: Performed By: #### L 500.2500, L100.0100, L300.3900 ####[facility] [address] [place], [address] Prothrombin timeOrdered By: Raven Thrasher on 04-21-2024 PT Coag (PPP) [Time] 14.2 s 11.7-14.9 [facility] RBC Auto (Bld) [#/Vol]Ordere d By: Raven Thrasher on 04-21-2024 RBC (Bld) [#/Vol] 4.79 10*6/uL 4.6-6.2 [facility] Serum creatinine measurement (mass/volume)Ordered By: Raven Thrasher on 04-21-2024 Creatinine [Mass/Vol] 0.96 mg/dL 0.70-1.20 [facility] Serum glucose measurement (m ass/volume)Ordered By: Raven Thrasher on 04-21-2024 Glucose [Mass/Vol] 149 mg/dL High 70-99 [facility] Serum or plasma anion gap de termination (moles/volume)Ordered By: Raven Thrasher on 04-21-2024 Anion gap [Moles/Vol] 14 mmol/L 5-15 [facility] Serum or plasma calcium mt urement (mass/volume)Ordered By: Raven Thrasher on 04-21-2024 Calcium [Mass/Vol] 9.3 mg/dL 7.6-11.0 [facility] Serum or plasma potassium me asurementOrdered By: Raven Thrasher on 04-21-2024 Potassium [Moles/Vol] 4.6 mmol/L 3.3-5.1 [facility] Serum or plasma sodium measu rement (moles/volume)Ordered By: Raven Thrasher on 04-21-2024 Sodium [Moles/Vol] 139 mmol/L 133-145 [facility] Serum or plasma urea nitroge n measurement (mass/volume)Ordered By: Raven Thrasher on 04-21-2024 Urea nitrogen [Mass/Vol] 24 mg/dL High 4-19 [facility] White blood cell (WBC) count Ordered By: Raven Thrasher on 04-21-2024 WBC (Bld) [#/Vol] 8.1 10*3/uL 4.4-11.0 [facility] Stress Reporton 04-20-2024 Stress Report Normal [facility] Carotid Duplex Ultrasoundon 04-17-2024 Carotid Duplex Ultrasound Normal [facility] Echo Completeon 04-17-2024 Echo Complete Normal [facility] Cardiology Visit Reporton Cardiology Visit Report Normal [facility] Testosterone Freeon 03-12-19 25 TESTOSTER FREE 1.1 pg/mL Abnormal 6.6-18.1 [facility] Comment on above: Result Comment: Perf ormed at: [facility] [id number] Director: Lucas Sorto MD, Phone: [phone] Performed By: #### L 500.4050, L501.9520, L501.9985, L100.0100, L3400.4800, L500.4100, L506.1000 ####[facility] [address] [place], [place], [id number] 34-TR-Atpknvj DOrdered By: Heidy Moon on 03-07-2024 Vitamin D 25-Hydroxy 40.2 ng/mL [facility] Comment on above: Vitamin D 25(OH) Sta tus Range Deficiency <20 ng/mL (50nmol/L) Insufficiency 20 - 30 ng/mL (50 - 75 nmol/L) Sufficiency 30 - 100 ng/mL (75 - 250 nmol/L) Toxicity >100 ng/mL (>250 nmol/L) Absolute neutrophil countOrd ered By: Fredis Moon on 03-07-2024 Neutrophils (Bld) [#/Vol] 4.8 10*3/uL 2.0-7.7 [facility] Albumin to globulin ratioOrd ered By: Fredis Moon on 03-07-2024 Albumin/Globulin [Mass ratio] 0.9 {ratio} 0.9-2.4 [facility] Basophil percentageOrdered B y: Fredis Moon on 03-07-2024 Basophils/100 WBC (Bld) 0.7 % 0-1 [facility] Bilirubin, totalOrdered By: Fredis Moon on 03-07-2024 Bilirubin [Mass/Vol] 0.40 mg/dL 0.20-1.00 [facility] Comment on above: For patients on eltr ombopag therapy, use of Dimension Red Level TBIL is not recommended. Blood urea nitrogen (BUN)/cr eatinine ratioOrdered By: Fredis Red on 03-07-2024 Urea nitrogen/Creatinine [Mass ratio] 25.1 mg/mg High 10-20 [facility] CBC W/Diff, Automatedon 02-22 Absolute Lymph 1.25 X10 3/uL Normal 0.83-4.51 [facility] Comment on above: Performed By: #### L 500.4050, L501.9520, L501.9985, L100.0100, L3400.4800, L500.4100, L506.1000 ####[facility] [address] [place], [address] Absolute Neut 4.8 X10 3/uL Normal 2.0-7.7 [facility] Comment on above: Performed By: #### L 500.4050, L501.9520, L501.9985, L100.0100, L3400.4800, L500.4100, L506.1000 ####[facility] [address] [place], [address] Basophils/100 WBC (Bld) 0.7 % Normal 0-1 [facility] Comment on above: Performed By: #### L 500.4050, L501.9520, L501.9985, L100.0100, L3400.4800, L500.4100, L506.1000 ####[facility] [address] [place], [address] Eosinophils/100 WBC (Bld) 1.4 % Normal 0-5 [facility] Comment on above: Performed By: #### L 500.4050, L501.9520, L501.9985, L100.0100, L3400.4800, L500.4100, L506.1000 ####[facility] [address] [place], [address] Erythrocyte distribution width (RBC) [Ratio] 14.1 % Normal 11.6-14.6 [facility] Comment on above: Performed By: #### L 500.4050, L501.9520, L501.9985, L100.0100, L3400.4800, L500.4100, L506.1000 ####[facility] [address] [place], [address] Hematocrit (Bld) [Volume fraction] 40.6 % Normal 40-54 [facility] Comment on above: Performed By: #### L 500.4050, L501.9520, L501.9985, L100.0100, L3400.4800, L500.4100, L506.1000 ####[facility] [address] [place], [address] Hemoglobin (Bld) [Mass/Vol] 13.0 g/dL Normal 13.0-16.5 [facility] Comment on above: Performed By: #### L 500.4050, L501.9520, L501.9985, L100.0100, L3400.4800, L500.4100, L506.1000 ####[facility] [address] [place], [address] IG% 1.100 High 0.0-0.9 [facility] Comment on above: Result Comment: IG% - Immature Granulocytes (promyelocytes, myelocytes andmetamyelocytes) > 1% indicates that a LEFT SHIFT is Present. Performed By: #### L 500.4050, L501.9520, L501.9985, L100.0100, L3400.4800, L500.4100, L506.1000 ####[facility] [address] [place], [address] Lymphocytes/100 WBC (Bld) 17.5 % Low 19-41 [facility] Comment on above: Performed By: #### L 500.4050, L501.9520, L501.9985, L100.0100, L3400.4800, L500.4100, L506.1000 ####[facility] [address] [place], [address] MCH (RBC) [Entitic mass] 27.5 pg Normal 27.0-32.0 [facility] Comment on above: Performed By: #### L 500.4050, L501.9520, L501.9985, L100.0100, L3400.4800, L500.4100, L506.1000 ####[facility] [address] [place], [address] MCHC (RBC) [Mass/Vol] 32.0 g/dL Normal 32-36 [facility] Comment on above: Performed By: #### L 500.4050, L501.9520, L501.9985, L100.0100, L3400.4800, L500.4100, L506.1000 ####[facility] [address] [place], [address] MCV (RBC) [Entitic vol] 86.0 fL Normal 80-94 [facility] Comment on above: Performed By: #### L 500.4050, L501.9520, L501.9985, L100.0100, L3400.4800, L500.4100, L506.1000 ####[facility] [address] [place], [address] Monocytes/100 WBC (Bld) 12.5 % High 0-10 [facility] Comment on above: Performed By: #### L 500.4050, L501.9520, L501.9985, L100.0100, L3400.4800, L500.4100, L506.1000 ####[facility] [address] [place], [address] Neutrophils/100 WBC (Bld) 66.8 % Normal 47-70 [facility] Comment on above: Performed By: #### L 500.4050, L501.9520, L501.9985, L100.0100, L3400.4800, L500.4100, L506.1000 ####[facility] [address] [place], [address] Nucleated RBC (Bld) [#/Vol] 0 10*3/uL Normal 0-5 [facility] Comment on above: Performed By: #### L 500.4050, L501.9520, L501.9985, L100.0100, L3400.4800, L500.4100, L506.1000 ####[facility] [address] [place], [address] Platelet mean volume (Bld) [Entitic vol] 9.2 fL Normal 6.2-12.0 [facility] Comment on above: Performed By: #### L 500.4050, L501.9520, L501.9985, L100.0100, L3400.4800, L500.4100, L506.1000 ####[facility] [address] [place], [address] Platelets (Bld) [#/Vol] 198 10*3/uL Normal 150-450 [facility] Comment on above: Performed By: #### L 500.4050, L501.9520, L501.9985, L100.0100, L3400.4800, L500.4100, L506.1000 ####[facility] [address] [place], [address] RBC (Bld) [#/Vol] 4.72 10*6/uL Normal 4.6-6.2 [facility] Comment on above: Performed By: #### L 500.4050, L501.9520, L501.9985, L100.0100, L3400.4800, L500.4100, L506.1000 ####[facility] [address] [place], [address] RDW SD 44.3 fl High 35.1-43.9 [facility] Comment on above: Performed By: #### L 500.4050, L501.9520, L501.9985, L100.0100, L3400.4800, L500.4100, L506.1000 ####[facility] [address] [place], [address] WBC (Bld) [#/Vol] 7.1 10*3/uL Normal 4.4-11.0 [facility] Comment on above: Performed By: #### L 500.4050, L501.9520, L501.9985, L100.0100, L3400.4800, L500.4100, L506.1000 ####[facility] [address] [place], [address] Carbon dioxide measurementOr dered By: Fredis Moon on 03-07-2024 CO2 [Moles/Vol] 30.0 mmol/L 21.0-32.0 [facility] Chloride measurementOrdered By: Fredis Moon on 03-07-2024 Chloride [Moles/Vol] 107 mmol/L 98-107 [facility] Comprehensive Metabolic Prof ilon 03-07-2024 Albumin [Mass/Vol] 3.3 g/dL Normal 3.2-5.0 [facility] Comment on above: Performed By: #### L 500.4050, L501.9520, L501.9985, L100.0100, L3400.4800, L500.4100, L506.1000 ####[facility] [address] [place], [address] Albumin/Globulin [Mass ratio] 0.9 {ratio} Normal 0.9-2.4 [facility] Comment on above: Performed By: #### L 500.4050, L501.9520, L501.9985, L100.0100, L3400.4800, L500.4100, L506.1000 ####[facility] [address] [place], [address] ALK P 103 U/L Normal 45-117 [facility] Comment on above: Performed By: #### L 500.4050, L501.9520, L501.9985, L100.0100, L3400.4800, L500.4100, L506.1000 ####[facility] [address] [place], [address] ALT [Catalytic activity/Vol] 18 U/L Normal 16-61 [facility] Comment on above: Performed By: #### L 500.4050, L501.9520, L501.9985, L100.0100, L3400.4800, L500.4100, L506.1000 ####[facility] [address] [place], [address] AST [Catalytic activity/Vol] 15 U/L Normal 15-37 [facility] Comment on above: Performed By: #### L 500.4050, L501.9520, L501.9985, L100.0100, L3400.4800, L500.4100, L506.1000 ####[facility] [address] [place], [address] Bilirubin [Mass/Vol] 0.40 mg/dL Normal 0.20-1.00 [facility] Comment on above: Result Comment: For patients on eltrombopag therapy, use of Dimension Red Level TBIL is not recommended. Performed By: #### L 500.4050, L501.9520, L501.9985, L100.0100, L3400.4800, L500.4100, L506.1000 ####[facility] [address] [place], [address] BUN/CRE 25.1 RATIO High 10-20 [facility] Comment on above: Performed By: #### L 500.4050, L501.9520, L501.9985, L100.0100, L3400.4800, L500.4100, L506.1000 ####[facility] [address] [place], [address] CA,Total 8.8 mg/dL Normal 8.5-10.1 [facility] Comment on above: Performed By: #### L 500.4050, L501.9520, L501.9985, L100.0100, L3400.4800, L500.4100, L506.1000 ####[facility] [address] [place], [address] Chloride [Moles/Vol] 107 mmol/L Normal 98-107 [facility] Comment on above: Performed By: #### L 500.4050, L501.9520, L501.9985, L100.0100, L3400.4800, L500.4100, L506.1000 ####[facility] [address] [place], [address] CO2 [Moles/Vol] 30.0 mmol/L Normal 21.0-32.0 [facility] Comment on above: Performed By: #### L 500.4050, L501.9520, L501.9985, L100.0100, L3400.4800, L500.4100, L506.1000 ####[facility] [address] [place], [place], [id number] Creatinine [Mass/Vol] 1.00 mg/dL Normal 0.70-1.30 [facility] Comment on above: Result Comment: The validity of the calculated GFR GFRAA in patients over70 years has not been determined. Clinical correlation isessential. Performed By: #### L 500.4050, L501.9520, L501.9985, L100.0100, L3400.4800, L500.4100, L506.1000 ####[facility] [address] [place], [place], [id number] EST GFR - AA 93 mL/min Normal >60 [facility] Comment on above: Result Comment: Afri can Turk[place] GFR Calc Performed By: #### L 500.4050, L501.9520, L501.9985, L100.0100, L3400.4800, L500.4100, L506.1000 ####[facility] [address] [place], [place], [id number] GAP 5 Normal 5-15 [facility] Comment on above: Performed By: #### L 500.4050, L501.9520, L501.9985, L100.0100, L3400.4800, L500.4100, L506.1000 ####[facility] [address] [place], [place], [id number] GFR/1.73 sq M.predicted among non-blacks MDRD (S/P/Bld) [Vol rate/Area] 77 mL/min/{1.73_m2} Normal >60 [facility] Comment on above: Result Comment: Non- GFR Calc Performed By: #### L 500.4050, L501.9520, L501.9985, L100.0100, L3400.4800, L500.4100, L506.1000 ####[facility] [address] [place], [address] Globulin (S) [Mass/Vol] 3.6 g/dL Normal 2.2-4.2 [facility] Comment on above: Performed By: #### L 500.4050, L501.9520, L501.9985, L100.0100, L3400.4800, L500.4100, L506.1000 ####[facility] [address] [place], [address] Glucose [Mass/Vol] 141 mg/dL High 74-106 [facility] Comment on above: Result Comment: Fast ing Glucose result greater than or equal to 126 mg/dLsuggests DIABETES MELLITUS per A.D.A. criteria. Performed By: #### L 500.4050, L501.9520, L501.9985, L100.0100, L3400.4800, L500.4100, L506.1000 ####[facility] [address] [place], [address] Potassium [Moles/Vol] 4.9 mmol/L Normal 3.5-5.1 [facility] Comment on above: Performed By: #### L 500.4050, L501.9520, L501.9985, L100.0100, L3400.4800, L500.4100, L506.1000 ####[facility] [address] [place], [address] Sodium [Moles/Vol] 142 mmol/L Normal 136-145 [facility] Comment on above: Performed By: #### L 500.4050, L501.9520, L501.9985, L100.0100, L3400.4800, L500.4100, L506.1000 ####[facility] [address] [place], [address] T PROT 6.9 g/dL Normal 6.4-8.2 [facility] Comment on above: Performed By: #### L 500.4050, L501.9520, L501.9985, L100.0100, L3400.4800, L500.4100, L506.1000 ####[facility] [address], [address] Urea nitrogen [Mass/Vol] 25 mg/dL High 7-18 [facility] Comment on above: Performed By: #### L 500.4050, L501.9520, L501.9985, L100.0100, L3400.4800, L500.4100, L506.1000 ####[facility] [address], [address] Eosinophil percentageOrdered By: Fredis Moon on 03-07-2024 Eosinophils/100 WBC (Bld) 1.4 % 0-5 [facility] Erythrocyte distribution wid th ratioOrdered By: Fredis Moon on 03-07-2024 Erythrocyte distribution width (RBC) [Ratio] 14.1 % 11.6-14.6 [facility] Erythrocyte distribution wid th standard deviationOrdered By: Fredis Moon on 03-07-2024 Erythrocyte distribution width (RBC) [Entitic vol] 44.3 fL High 35.1-43.9 [facility] Estimated glomerular filtrat ion rate (GFR) AmericanOrdered By: Fredis Moon on 03-07-2024 Estimated GFR (MDRD) Amer 93 mL/min >60 [facility] Comment on above: GFR Calc Glomerular filtration rate ( GFR) estimationOrdered By: Fredis Moon on 03-07-2024 Estimated GFR (MDRD) Non-Af Amer 77 mL/min >60 [facility] Comment on above: Non- GFR Calc Glucose measurementOrdered B y: Fredis Moon on 03-07-2024 Glucose [Mass/Vol] 141 mg/dL High 74-106 [facility] Comment on above: Fasting Glucose resu lt greater than or equal to 126 mg/dL suggests DIABETES MELLITUS per A.D.A. criteria. Hematocrit Auto (Bld) [Volum e fraction]Ordered By: Fredis Moon on 03-07-2024 Hematocrit (Bld) [Volume fraction] 40.6 % 40-54 [facility] Hemoglobin A1con 03-07-2024 HbA1c (Bld) [Mass fraction] 7.8 % High 3.8-5.6 [facility] Comment on above: Result Comment: Norm al < 5.7 % Prediabetic 5.7 - 6.4 % Diabetic >or= 6.5 % Please note range changes. Performed By: #### L 500.4050, L501.9520, L501.9985, L100.0100, L3400.4800, L500.4100, L506.1000 ####[facility] [address] [place], [address] Hemoglobin A1c percentageOrd ered By: Fredis Moon on 03-07-2024 HbA1c (Bld) [Mass fraction] 7.8 % High 3.8-5.6 [facility] Comment on above: Normal < 5.7 % Predi abetic 5.7 - 6.4 % Diabetic >or= 6.5 % Please note range changes. Hemoglobin measurementOrdere d By: Fredis Moon on 03-07-2024 Hemoglobin (Bld) [Mass/Vol] 13.0 g/dL 13.0-16.5 [facility] High density lipoprotein (HD L) measurementOrdered By: Fredis Moon on 03-07-2024 Cholesterol in HDL [Mass/Vol] 45 mg/dL >40 [facility] Comment on above: The drugs N-Acetylcy steine and Metamizole may falsely depress this assay. Reference Range HDL <40 mg/dL Low HDL Cholesterol HDL >or= 60 mg/dL High HDL Cholesterol Immature granulocytes/100 WB C Auto (Bld)Ordered By: Fredis Moon on 03-07-2024 Immature granulocytes/100 WBC (Bld) 1.100 % High 0.0-0.9 [facility] Comment on above: IG% - Immature Granu locytes (promyelocytes, myelocytes and metamyelocytes) > 1% indicates that a LEFT SHIFT is Present. Laboratory - Chemistry and C hemistry - challengeOrdered By: Fredis Moon on 03-07-2024 AST [Catalytic activity/Vol] 15 U/L 15-37 [facility] Lipid Profileon 03-07-2024 Cholesterol [Mass/Vol] 113 mg/dL Normal 200 [facility] Comment on above: Result Comment: <200 mg/dL Desirable 200-240 mg/dL Borderline >240 mg/dL High Risk Performed By: #### L 500.4050, L501.9520, L501.9985, L100.0100, L3400.4800, L500.4100, L506.1000 ####[facility] [address] [place], [address] Cholesterol in HDL [Mass/Vol] 45 mg/dL Normal [facility] Comment on above: Result Comment: The drugs N-Acetylcysteine and Metamizole may falselydepress this assay. Reference Range HDL <40 mg/dL Low HDL Cholesterol HDL >or= 60 mg/dL High HDL Cholesterol Performed By: #### L 500.4050, L501.9520, L501.9985, L100.0100, L3400.4800, L500.4100, L506.1000 ####[facility] [address] [place], [address] Cholesterol in LDL [Mass/Vol] -4 mg/dL Low 0-130 [facility] Comment on above: Performed By: #### L 500.4050, L501.9520, L501.9985, L100.0100, L3400.4800, L500.4100, L506.1000 ####[facility] [address] [place], [address] Cholesterol in VLDL [Mass/Vol] 72 mg/dL High 5-40 [facility] Comment on above: Performed By: #### L 500.4050, L501.9520, L501.9985, L100.0100, L3400.4800, L500.4100, L506.1000 ####[facility] [address] [place], [address] Triglyceride [Mass/Vol] 362 mg/dL High [facility] Comment on above: Result Comment: The drugs N-Acetylcysteine and Metamizole may falselydepress this assay.Serum Triglycerides Reference Interval Normal <150 mg/dL Borderline high 150 - 199 mg/dL High 200 - 499 mg/dL Very High > or = 500 mg/dL Performed By: #### L 500.4050, L501.9520, L501.9985, L100.0100, L3400.4800, L500.4100, L506.1000 ####[facility] [address] [place], [address] Low density lipoprotein (LDL ) cholesterol measurementOrdered By: Fredis Moon on 03-07-2024 Cholesterol in LDL [Mass/Vol] -4 mg/dL Low 0-130 [facility] Lymphocytes Auto (Unsp spec) [#/Vol]Ordered By: Fredis Moon on 03-07-2024 Lymphocytes (Bld) [#/Vol] 1.25 10*3/uL 0.83-4.51 [facility] Lymphocytes/100 WBC Auto (Un sp spec)Ordered By: Fredis Moon on 03-07-2024 Lymphocytes/100 WBC (Bld) 17.5 % Low 19-41 [facility] MCV (mean corpuscular volume ) determinationOrdered By: Fredis Moon 03-07-2024 MCV (RBC) [Entitic vol] 86.0 fL 80-94 [facility] Mean corpuscular hemoglobin (MCH) determinationOrdered By: Fredis Moon on 03-07-2024 MCH (RBC) [Entitic mass] 27.5 pg 27.0-32.0 [facility] Mean corpuscular hemoglobin concentration (MCHC) determinationOrdered By: Fredis Moon on 03-07-2024 MCHC (RBC) [Mass/Vol] 32.0 g/dL 32-36 [facility] Mean platelet volume determi nationOrdered By: Fredis Moon on 03-07-2024 Platelet mean volume (Bld) [Entitic vol] 9.2 fL 6.2-12.0 [facility] Monocyte percentageOrdered B y: Fredis Moon on 03-07-2024 Monocytes/100 WBC (Bld) 12.5 % High 0-10 [facility] Neutrophil percentageOrdered By: Fredis Moon on 03-07-2024 Neutrophils/100 WBC (Bld) 66.8 % 47-70 [facility] Nucleated red blood cell per centageOrdered By: Freids Moon on 03-07-2024 Nucleated RBC/100 WBC (Bld) [Ratio] 0 % 0-5 [facility] Platelet countOrdered By: Mir Moon on 03-07-2024 Platelets (Bld) [#/Vol] 198 10*3/uL 150-450 [facility] Potassium measurementOrdered By: Fredis Moon on 03-07-2024 Potassium [Moles/Vol] 4.9 mmol/L 3.5-5.1 [facility] RBC Auto (Bld) [#/Vol]Ordere d By: Fredis Moon on 03-07-2024 RBC (Bld) [#/Vol] 4.72 10*6/uL 4.6-6.2 [facility] Serum anion gap measurementO rdered By: Fredis Moon on 03-07-2024 Anion gap [Moles/Vol] 5 mmol/L 5-15 [facility] Serum globulin measurementOr dered By: Fredis Moon 03-07-2024 Globulin (S) [Mass/Vol] 3.6 g/dL 2.2-4.2 [facility] Serum or plasma alanine hector otransferase (ALT) measurementOrdered By: Fredis Moon on 03-07-2024 ALT [Catalytic activity/Vol] 18 U/L 16-61 [facility] Serum or plasma albumin mt urement (mass/volume)Ordered By: Fredis Moon 03-07-2024 Albumin [Mass/Vol] 3.3 g/dL 3.2-5.0 [facility] Serum or plasma alkaline kristyn sphatase measurementOrdered By: Fredis Moon 03-07-2024 ALP [Catalytic activity/Vol] 103 U/L 45-117 [facility] Serum or plasma calcium mt urement (mass/volume)Ordered By: Fredis Moon on 03-07-2024 Calcium [Mass/Vol] 8.8 mg/dL 8.5-10.1 [facility] Serum or plasma cholesterol measurement (mass/volume)Ordered By: Fredis Moon on 03-07-2024 Cholesterol [Mass/Vol] 113 mg/dL <200 [facility] Comment on above: <200 mg/dL Desirable 200-240 mg/dL Borderline >240 mg/dL High Risk Serum or plasma creatinine m easurement (mass/volume)Ordered By: Fredis Moon on 03-07-2024 Creatinine [Mass/Vol] 1.00 mg/dL 0.70-1.30 [facility] Comment on above: The validity of the calculated GFR & GFRAA in patients over 70 years has not been determined. Clinical correlation is essential. Serum or plasma urea nitroge n measurement (mass/volume)Ordered By: Fredis Moon on 03-07-2024 Urea nitrogen [Mass/Vol] 25 mg/dL High 7-18 [facility] Sodium levelOrdered By: Fredis Moon on 03-07-2024 Sodium [Moles/Vol] 142 mmol/L 136-145 [facility] TSH QnOrdered By: Fredis Moon o n 03-07-2024 Thyroid Stimulating Hormone (TSH) 3.430 uIU/mL 0.358-3.740 [facility] Testosterone Free [Mass/Vol] Ordered By: Fredis Moon on 03-07-2024 Free Testosterone 1.1 pg/mL Low 6.6-18.1 [facility] Comment on above: Performed at: [address] [id number] Director: Lucas Sorto MD, Phone: [phone] Thyroid Stim Hormone (TSH)on 03-07-2024 TSH 3.430 uIU/mL Normal 0.358-3.740 [facility] Comment on above: Performed By: #### L 500.4050, L501.9520, L501.9985, L100.0100, L3400.4800, L500.4100, L506.1000 ####[facility] [address] [place], [address] Total proteinOrdered By: Fredis Moon on 03-07-2024 Protein [Mass/Vol] 6.9 g/dL 6.4-8.2 [facility] Triglycerides measurementOrd ered By: Fredis Moon on 03-07-2024 Triglyceride [Mass/Vol] 362 mg/dL High <199 [facility] Comment on above: The drugs N-Acetylcy steine and Metamizole may falsely depress this assay.Serum Triglycerides Reference Interval Normal <150 mg/dL Borderline high 150 - 199 mg/dL High 200 - 499 mg/dL Very High > or = 500 mg/dL Very low density lipoprotein (VLDL) cholesterol measurementOrdered By: Fredis Moon on 03-07-2024 VLDL Cholesterol 72 mg/dL High 5-40 [facility] Vitamin D,25 Hydroxyon 03-07 Vitamin D 25-OH 40.2 ng/mL Normal [facility] Comment on above: Order Comment: ADD O N BOTH RED AND SST IN LAB Result Comment: Katie min D 25(OH) Status Range Deficiency <20 ng/mL (50nmol/L) Insufficiency 20 - 30 ng/mL (50 - 75 nmol/L) Sufficiency 30 - 100 ng/mL (75 - 250 nmol/L) Toxicity >100 ng/mL (>250 nmol/L) Performed By: #### L 500.4050, L501.9520, L501.9985, L100.0100, L3400.4800, L500.4100, L506.1000 ####[facility] [address] [place], [place], [address] White blood cell (WBC) count Ordered By: Fredis Moon on 03-07-2024 WBC (Bld) [#/Vol] 7.1 10*3/uL 4.4-11.0 [facility] PSA,Total- Diagnosticon 11-2 PSA, DIAGNOSTIC < 0.01 Normal 0.0-4.0 [facility] Comment on above: Result Comment: This test was performed using the TPSA assay method for theTalking Media GroupJibbigo chemistry system. Values obtained with differentassay methods cannot be used interchangably.When changing PSA assays in the course of monitoring apatient, additional sequential testing should be carriedout to confirm baseline values. Performed By: #### L 501.9940 ####[facility] [address] [place], [place], [address] L3300.0940on 12-17-2023 VIT D,25 HYDROX 43.4 ng/mL Normal 30.0-100.0 [facility] Comment on above: Order Comment: N Result Comment: Katie min D deficiency has been defined by the [place] and an Endocrine Society practice guideline as alevel of serum 25-OH vitamin D less than 20 ng/mL (1,2).The Endocrine Society went on to further define vitamin Dinsufficiency as a level between 21 and 29 ng/mL (2).1. IOM ([place] [employer]). 2010. Dietary reference intakes for calcium and D. [place]: The National Academies Press.2. Emory MF, Miguel BARNES, Greg ALCOCER, et al. Evaluation, treatment, and prevention of vitamin D deficiency: an Endocrine Society clinical practice guideline. JCEM. 2010; 96(7):1911-30.Performed at: - [facility] [id number] Director: Scott Marvin PhD, Phone: [phone] at: [facility] [id number] Director: Lucas Sorto MD, Phone: [phone] Performed By: #### L 3300.0940, L500.4050, L3100.5320, L501.9520, L100.0100, L500.4100, L501.9985 ####[facility] [address] [place], [address] Testosterone, Totalon 2023 TESTOSTER,TOTAL 41 ng/dL Low 264-696 [facility] Comment on above: Order Comment: N Result Comment: Adul t male reference interval is based on a population ofhealthy nonobese males (BMI <30) between 19 and 39 yearsold. osiel Tinoco.al. JCEM 2017,102;1744-2104. PMID:[id number]. Performed By: #### L 3300.0940, L500.4050, L3100.5320, L501.9520, L100.0100, L500.4100, L501.9985 ####[facility] [address] [place], [address] Ext Non Vasc Limited/Soft Ti sson 12-12-2023 Ext Non Vasc Limited/Soft Tiss Normal [facility] CBC W/Diff, Automatedon - Absolute Lymph 1.26 X10 3/uL Normal 0.83-4.51 [facility] Comment on above: Performed By: #### L 3300.0940, L500.4050, L3100.5320, L501.9520, L100.0100, L500.4100, L501.9985 ####[facility] [address] [place], [address] Absolute Neut 4.1 X10 3/uL Normal 2.0-7.7 [facility] Comment on above: Performed By: #### L 3300.0940, L500.4050, L3100.5320, L501.9520, L100.0100, L500.4100, L501.9985 ####[facility] [address] [place], [address] Basophils/100 WBC (Bld) 0.8 % Normal 0-1 [facility] Comment on above: Performed By: #### L 3300.0940, L500.4050, L3100.5320, L501.9520, L100.0100, L500.4100, L501.9985 ####[facility] [address] [place], [address] Eosinophils/100 WBC (Bld) 1.6 % Normal 0-5 [facility] Comment on above: Performed By: #### L 3300.0940, L500.4050, L3100.5320, L501.9520, L100.0100, L500.4100, L501.9985 ####[facility] [address] [place], [address] Erythrocyte distribution width (RBC) [Ratio] 14.5 % Normal 11.6-14.6 [facility] Comment on above: Performed By: #### L 3300.0940, L500.4050, L3100.5320, L501.9520, L100.0100, L500.4100, L501.9985 ####[facility] [address] [place], [address] Hematocrit (Bld) [Volume fraction] 41.2 % Normal 40-54 [facility] Comment on above: Performed By: #### L 3300.0940, L500.4050, L3100.5320, L501.9520, L100.0100, L500.4100, L501.9985 ####[facility] [address] [place], [address] Hemoglobin (Bld) [Mass/Vol] 13.1 g/dL Normal 13.0-16.5 [facility] Comment on above: Performed By: #### L 3300.0940, L500.4050, L3100.5320, L501.9520, L100.0100, L500.4100, L501.9985 ####[facility] [address] [place], [address] IG% 1.600 High 0.0-0.9 [facility] Comment on above: Result Comment: IG% - Immature Granulocytes (promyelocytes, myelocytes andmetamyelocytes) > 1% indicates that a LEFT SHIFT is Present. Performed By: #### L 3300.0940, L500.4050, L3100.5320, L501.9520, L100.0100, L500.4100, L501.9985 ####[facility] [address] [place], [address] Lymphocytes/100 WBC (Bld) 19.6 % Normal 19-41 [facility] Comment on above: Performed By: #### L 3300.0940, L500.4050, L3100.5320, L501.9520, L100.0100, L500.4100, L501.9985 ####[facility] [address] [place], [address] MCH (RBC) [Entitic mass] 27.5 pg Normal 27.0-32.0 [facility] Comment on above: Performed By: #### L 3300.0940, L500.4050, L3100.5320, L501.9520, L100.0100, L500.4100, L501.9985 ####[facility] [address] [place], [address] MCHC (RBC) [Mass/Vol] 31.8 g/dL Low 32-36 [facility] Comment on above: Performed By: #### L 3300.0940, L500.4050, L3100.5320, L501.9520, L100.0100, L500.4100, L501.9985 ####[facility] [address] [place], [address] MCV (RBC) [Entitic vol] 86.4 fL Normal 80-94 [facility] Comment on above: Performed By: #### L 3300.0940, L500.4050, L3100.5320, L501.9520, L100.0100, L500.4100, L501.9985 ####[facility] [address] [place], [address] Monocytes/100 WBC (Bld) 12.1 % High 0-10 [facility] Comment on above: Performed By: #### L 3300.0940, L500.4050, L3100.5320, L501.9520, L100.0100, L500.4100, L501.9985 ####[facility] [address] [place], [address] Neutrophils/100 WBC (Bld) 64.3 % Normal 47-70 [facility] Comment on above: Performed By: #### L 3300.0940, L500.4050, L3100.5320, L501.9520, L100.0100, L500.4100, L501.9985 ####[facility] [address] [place], [address] Nucleated RBC (Bld) [#/Vol] 0 10*3/uL Normal 0-5 [facility] Comment on above: Performed By: #### L 3300.0940, L500.4050, L3100.5320, L501.9520, L100.0100, L500.4100, L501.9985 ####[facility] [address] [place], [address] Platelet mean volume (Bld) [Entitic vol] 9.9 fL Normal 6.2-12.0 [facility] Comment on above: Performed By: #### L 3300.0940, L500.4050, L3100.5320, L501.9520, L100.0100, L500.4100, L501.9985 ####[facility] [address] [place], [address] Platelets (Bld) [#/Vol] 210 10*3/uL Normal 150-450 [facility] Comment on above: Performed By: #### L 3300.0940, L500.4050, L3100.5320, L501.9520, L100.0100, L500.4100, L501.9985 ####[facility] [address] [place], [address] RBC (Bld) [#/Vol] 4.77 10*6/uL Normal 4.6-6.2 [facility] Comment on above: Performed By: #### L 3300.0940, L500.4050, L3100.5320, L501.9520, L100.0100, L500.4100, L501.9985 ####[facility] [address] [place], [address] RDW SD 45.6 fl High 35.1-43.9 [facility] Comment on above: Performed By: #### L 3300.0940, L500.4050, L3100.5320, L501.9520, L100.0100, L500.4100, L501.9985 ####[facility] [address] [place], [address] WBC (Bld) [#/Vol] 6.4 10*3/uL Normal 4.4-11.0 [facility] Comment on above: Performed By: #### L 3300.0940, L500.4050, L3100.5320, L501.9520, L100.0100, L500.4100, L501.9985 ####[facility] [address] [place], [address] Comprehensive Metabolic Prof [facility] 12-07-2023 Albumin [Mass/Vol] 3.3 g/dL Normal 3.2-5.0 [facility] Comment on above: Performed By: #### L 3300.0940, L500.4050, L3100.5320, L501.9520, L100.0100, L500.4100, L501.9985 ####[facility] [address] [place], [address] Albumin/Globulin [Mass ratio] 1.0 {ratio} Normal 0.9-2.4 [facility] Comment on above: Performed By: #### L 3300.0940, L500.4050, L3100.5320, L501.9520, L100.0100, L500.4100, L501.9985 ####[facility] [address] [place], [address] ALK P 101 U/L Normal 45-117 [facility] Comment on above: Performed By: #### L 3300.0940, L500.4050, L3100.5320, L501.9520, L100.0100, L500.4100, L501.9985 ####[facility] [address] [place], [address] ALT [Catalytic activity/Vol] 9 U/L Low 16-61 [facility] Comment on above: Performed By: #### L 3300.0940, L500.4050, L3100.5320, L501.9520, L100.0100, L500.4100, L501.9985 ####[facility] [address] [place], [address] AST [Catalytic activity/Vol] 13 U/L Low 15-37 [facility] Comment on above: Performed By: #### L 3300.0940, L500.4050, L3100.5320, L501.9520, L100.0100, L500.4100, L501.9985 ####[facility] [address] [place], [address] Bilirubin [Mass/Vol] 0.50 mg/dL Normal 0.20-1.00 [facility] Comment on above: Result Comment: For patients on eltrombopag therapy, use of Dimension Red Level TBIL is not recommended. Performed By: #### L 3300.0940, L500.4050, L3100.5320, L501.9520, L100.0100, L500.4100, L501.9985 ####[facility] [address] [place], [address] BUN/CRE 22.5 RATIO High 10-20 [facility] Comment on above: Performed By: #### L 3300.0940, L500.4050, L3100.5320, L501.9520, L100.0100, L500.4100, L501.9985 ####[facility] [address] [place], [address] CA,Total 9.1 mg/dL Normal 8.5-10.1 [facility] Comment on above: Performed By: #### L 3300.0940, L500.4050, L3100.5320, L501.9520, L100.0100, L500.4100, L501.9985 ####[facility] [address] [place], [address] Chloride [Moles/Vol] 104 mmol/L Normal 98-107 [facility] Comment on above: Performed By: #### L 3300.0940, L500.4050, L3100.5320, L501.9520, L100.0100, L500.4100, L501.9985 ####[facility] [address] [place], [address] CO2 [Moles/Vol] 24.0 mmol/L Normal 21.0-32.0 [facility] Comment on above: Performed By: #### L 3300.0940, L500.4050, L3100.5320, L501.9520, L100.0100, L500.4100, L501.9985 ####[facility] [address] [place], [address] Creatinine [Mass/Vol] 1.02 mg/dL Normal 0.70-1.30 [facility] Comment on above: Result Comment: The validity of the calculated GFR GFRAA in patients over70 years has not been determined. Clinical correlation isessential. Performed By: #### L 3300.0940, L500.4050, L3100.5320, L501.9520, L100.0100, L500.4100, L501.9985 ####[facility] [address] [place], [address] EST GFR - AA 90 mL/min Normal >60 [facility] Comment on above: Result Comment: Afri can Turkmen GFR Calc Performed By: #### L 3300.0940, L500.4050, L3100.5320, L501.9520, L100.0100, L500.4100, L501.9985 ####[facility] [address] [place], [address] GAP 9 Normal 5-15 [facility] Comment on above: Performed By: #### L 3300.0940, L500.4050, L3100.5320, L501.9520, L100.0100, L500.4100, L501.9985 ####[facility] [address] [place], [address] GFR/1.73 sq M.predicted among non-blacks MDRD (S/P/Bld) [Vol rate/Area] 74 mL/min/{1.73_m2} Normal >60 [facility] Comment on above: Result Comment: Non- GFR Calc Performed By: #### L 3300.0940, L500.4050, L3100.5320, L501.9520, L100.0100, L500.4100, L501.9985 ####[facility] [address] [place], [address] Globulin (S) [Mass/Vol] 3.4 g/dL Normal 2.2-4.2 [facility] Comment on above: Performed By: #### L 3300.0940, L500.4050, L3100.5320, L501.9520, L100.0100, L500.4100, L501.9985 ####[facility] [address], [address] Glucose [Mass/Vol] 210 mg/dL High 74-106 [facility] Comment on above: Result Comment: Gluc ose result greater than or equal to 200 mg/dLsuggests DIABETES MELLITUS per A.D.A. criteria. Performed By: #### L 3300.0940, L500.4050, L3100.5320, L501.9520, L100.0100, L500.4100, L501.9985 ####[facility] [address] [place], [address] Potassium [Moles/Vol] 4.5 mmol/L Normal 3.5-5.1 [facility] Comment on above: Performed By: #### L 3300.0940, L500.4050, L3100.5320, L501.9520, L100.0100, L500.4100, L501.9985 ####[facility] [address] [place], [address] Sodium [Moles/Vol] 137 mmol/L Normal 136-145 [facility] Comment on above: Performed By: #### L 3300.0940, L500.4050, L3100.5320, L501.9520, L100.0100, L500.4100, L501.9985 ####[facility] [address] [place], [address] T PROT 6.7 g/dL Normal 6.4-8.2 [facility] Comment on above: Performed By: #### L 3300.0940, L500.4050, L3100.5320, L501.9520, L100.0100, L500.4100, L501.9985 ####[facility] [address] [place], [address] Urea nitrogen [Mass/Vol] 23 mg/dL High 7-18 [facility] Comment on above: Performed By: #### L 3300.0940, L500.4050, L3100.5320, L501.9520, L100.0100, L500.4100, L501.9985 ####[facility] [address] [place], [address] Hemoglobin A1con 12-07-2023 HbA1c (Bld) [Mass fraction] 7.0 % High 3.8-5.6 [facility] Comment on above: Result Comment: Norm al < 5.7 % Prediabetic 5.7 - 6.4 % Diabetic >or= 6.5 % Please note range changes. Performed By: #### L 3300.0940, L500.4050, L3100.5320, L501.9520, L100.0100, L500.4100, L501.9985 ####[facility] [address] [place], [address] Lipid Profileon 12-07-2023 Cholesterol [Mass/Vol] 115 mg/dL Normal 200 [facility] Comment on above: Result Comment: <200 mg/dL Desirable 200-240 mg/dL Borderline >240 mg/dL High Risk Performed By: #### L 3300.0940, L500.4050, L3100.5320, L501.9520, L100.0100, L500.4100, L501.9985 ####[facility] [address] [place], [address] Cholesterol in HDL [Mass/Vol] 47 mg/dL Normal [facility] Comment on above: Result Comment: The drugs N-Acetylcysteine and Metamizole may falselydepress this assay. Reference Range HDL <40 mg/dL Low HDL Cholesterol HDL >or= 60 mg/dL High HDL Cholesterol Performed By: #### L 3300.0940, L500.4050, L3100.5320, L501.9520, L100.0100, L500.4100, L501.9985 ####[facility] [address] [place], [address] Cholesterol in LDL [Mass/Vol] 23 mg/dL Normal 0-130 [facility] Comment on above: Performed By: #### L 3300.0940, L500.4050, L3100.5320, L501.9520, L100.0100, L500.4100, L501.9985 ####[facility] [address] [place], [place], [address] Cholesterol in VLDL [Mass/Vol] 45 mg/dL High 5-40 [facility] Comment on above: Performed By: #### L 3300.0940, L500.4050, L3100.5320, L501.9520, L100.0100, L500.4100, L501.9985 ####[facility] [address] [place], [address] Triglyceride [Mass/Vol] 227 mg/dL High [facility] Comment on above: Result Comment: The drugs N-Acetylcysteine and Metamizole may falselydepress this assay.Serum Triglycerides Reference Interval Normal <150 mg/dL Borderline high 150 - 199 mg/dL High 200 - 499 mg/dL Very High > or = 500 mg/dL Performed By: #### L 3300.0940, L500.4050, L3100.5320, L501.9520, L100.0100, L500.4100, L501.9985 ####[facility] [address] [facility] [place], [address] Thyroid Stim Hormone (TSH)on 12-07-2023 TSH 2.810 uIU/mL Normal 0.358-3.740 [facility] Comment on above: Performed By: #### L 3300.0940, L500.4050, L3100.5320, L501.9520, L100.0100, L500.4100, L501.9985 ####[facility] [address] [place], [place], [address] Absolute lymphocyte countOrd ered By: Fredis Moon on 06-01-2023 Lymphocytes Auto (Unsp spec) [#/Vol] 1.29 10*3/uL 0.83-4.51 [facility] Automated lymphocyte count a s percentage of total leukocytesOrdered By: Fredis Moon on 06-01-2023 Lymphocytes/100 WBC Auto (Unsp spec) 17.4 % 19-41 [facility] Basophil percentageOrdered B y: Fredis Moon on 06-01-2023 Basophils/100 WBC (Bld) 0.8 % 0-1 [facility] Bilirubin [Mass/Vol] 0.50 mg/dL 0.20-1.00 [facility] Comment on above: For patients on eltr ombopag therapy, use of Dimension Red Level TBIL is not recommended. Chloride [Moles/Vol] 108 mmol/L 98-107 [facility] Cholesterol [Mass/Vol] 112 mg/dL <200 [facility] Comment on above: <200 mg/dL Desirable 200-240 mg/dL Borderline >240 mg/dL High Risk Eosinophils/100 WBC (Bld) 1.3 % 0-5 [facility] Glucose [Mass/Vol] 121 mg/dL 74-106 [facility] Comment on above: Fasting Glucose resu lt from 100 to 125 mg/dL suggests IMPAIRED HOMEOSTASIS per A.D.A. criteria. Hemoglobin (Bld) [Mass/Vol] 13.4 g/dL 13.0-16.5 [facility] Monocytes/100 WBC (Bld) 12.7 % 0-10 [facility] Neutrophils (Bld) [#/Vol] 5.0 10*3/uL 2.0-7.7 [facility] Neutrophils/100 WBC (Bld) 67.0 % 47-70 [facility] Potassium [Moles/Vol] 4.4 mmol/L 3.5-5.1 [facility] Protein [Mass/Vol] 6.8 g/dL 6.4-8.2 [facility] Sodium [Moles/Vol] 140 mmol/L 136-145 [facility] Testosterone [Mass/Vol] 34.50 ng/dL [facility] Comment on above: CENTRAL 90% REFERENC E RANGES MALE AGE <50 197.44 - 669.58 ng/dL MALE AGE > or = 50 187.72 - 684.19 ng/dL FEMALE AGE <50 8.38 - 35.01 ng/dL FEMALE AGE > or = 50 <7.00 - 35.92 ng/dL Effective as of 09/17/20 Triglyceride [Mass/Vol] 322 mg/dL <199 [facility] Comment on above: The drugs N-Acetylcy steine and Metamizole may falsely depress this assay.Serum Triglycerides Reference Interval Normal <150 mg/dL Borderline high 150 - 199 mg/dL High 200 - 499 mg/dL Very High > or = 500 mg/dL WBC (Bld) [#/Vol] 7.4 10*3/uL 4.4-11.0 [facility] Determination of erythrocyte mean corpuscular volume (MCV)Ordered By: Fredis Red on 06-01-2023 MCV (RBC) [Entitic vol] 85.9 fL 80-94 [facility] Erythrocyte distribution wid th ratioOrdered By: [facility] on 06-01-2023 Erythrocyte distribution width (RBC) [Ratio] 14.3 % 11.6-14.6 [facility] Erythrocyte distribution wid th standard deviationOrdered By: [facility] on 06-01-2023 Erythrocyte distribution width (RBC) [Entitic vol] 44.3 fL 35.1-43.9 [facility] Hematocrit Auto (Bld) [Volum e fraction]Ordered By: [facility] on 06-01-2023 Hematocrit (Bld) [Volume fraction] 41.4 % 40-54 [facility] Immature granulocytes/100 WB C Auto (Bld)Ordered By: [facility] 06-01-2023 Immature granulocytes/100 WBC (Bld) 0.800 % 0.0-0.9 [facility] Comment on above: IG% - Immature Granu locytes (promyelocytes, myelocytes and metamyelocytes) > 1% indicates that a LEFT SHIFT is Present. Laboratory - Chemistry and C hemistry - challengeOrdered By: [facility] on 06-01-2023 Albumin/Globulin [Mass ratio] 1.0 {ratio} 0.9-2.4 [facility] ALP [Catalytic activity/Vol] 88 U/L 45-117 [facility] ALT [Catalytic activity/Vol] 18 U/L 16-61 [facility] Cholesterol in HDL [Mass/Vol] 45 mg/dL >40 [facility] Comment on above: The drugs N-Acetylcy steine and Metamizole may falsely depress this assay. Reference Range HDL <40 mg/dL Low HDL Cholesterol HDL >or= 60 mg/dL High HDL Cholesterol Cholesterol in LDL [Mass/Vol] 3 mg/dL 0-130 [facility] CO2 [Moles/Vol] 24.0 mmol/L 21.0-32.0 [facility] Globulin (S) [Mass/Vol] 3.4 g/dL 2.2-4.2 [facility] Urea nitrogen/Creatinine [Mass ratio] 24.8 mg/mg 10-20 [facility] Laboratory - Hematology and Cell countsOrdered By: Fredis Moon on 06-01-2023 MCH (RBC) [Entitic mass] 27.8 pg 27.0-32.0 [facility] MCHC (RBC) [Mass/Vol] 32.4 g/dL 32-36 [facility] Nucleated RBC/100 WBC (Bld) [Ratio] 0 % 0-5 [facility] Platelet mean volume (Bld) [Entitic vol] 9.3 fL 6.2-12.0 [facility] Platelets (Bld) [#/Vol] 223 10*3/uL 150-450 [facility] No Panel InformationOrdered By: Fredis Moon on 06-01-2023 Estimated GFR (MDRD) Amer 84 mL/min >60 [facility] Comment on above: GFR Calc Estimated GFR (MDRD) Non-Af Amer 69 mL/min >60 [facility] Comment on above: Non- GFR Calc Vitamin D 25-Hydroxy 71.7 ng/mL [facility] Comment on above: Vitamin D 25(OH) Sta tus Range Deficiency <20 ng/mL (50nmol/L) Insufficiency 20 - 30 ng/mL (50 - 75 nmol/L) Sufficiency 30 - 100 ng/mL (75 - 250 nmol/L) Toxicity >100 ng/mL (>250 nmol/L) VLDL Cholesterol 64 mg/dL 5-40 [facility] RBC Auto (Bld) [#/Vol]Ordere d By: Fredis Moon on 06-01-2023 RBC (Bld) [#/Vol] 4.82 10*6/uL 4.6-6.[address] [facility] Serum or plasma calcium mt urement (mass/volume)Ordered By: Fredis Moon on 06-01-2023 Calcium [Mass/Vol] 9.0 mg/dL 8.5-10.1 [facility] Serum or plasma creatinine m easurement (mass/volume)Ordered By: Fredis Moon on 06-01-2023 Creatinine [Mass/Vol] 1.09 mg/dL 0.70-1.30 [facility] Comment on above: The validity of the calculated GFR & GFRAA in patients over 70 years has not been determined. Clinical correlation is essential. Serum or plasma thyroid stim ulating hormone (TSH) measurement (units/volume)Ordered By: Fredis Moon on 06-01-2023 TSH Qn 2.51 uIU/mL 0.358-3.74 [facility] Serum or plasma urea nitroge n measurement (mass/volume)Ordered By: Fredis Moon on 06-01-2023 Urea nitrogen [Mass/Vol] 27 mg/dL 7-18 [facility] Thin prep Papanicolaou smear with manual screeningOrdered By: Fredis Moon on 06-01-2023 Thin prep Papanicolaou smear with manual screening 3.4 g/dL 3.2-5.0 [facility] Thin prep Papanicolaou smear with manual screening 15 U/L 15-37 [facility] Thin prep Papanicolaou smear with manual screening 8 5-15 [facility] Whole blood hemoglobin A1c/t otal hemoglobin ratio (mass fraction)Ordered By: Fredis Moon on 06-01-2023 HbA1c (Bld) [Mass fraction] 7.6 % 3.8-5.6 [facility] Comment on above: Normal < 5.7 % Predi abetic 5.7 - 6.4 % Diabetic >or= 6.5 % Please note range changes. Basophil percentageOrdered B y: Mi Hernandez on 04-05-2023 Chloride [Moles/Vol] 107 mmol/L 98-107 [facility] Glucose [Mass/Vol] 200 mg/dL 74-106 [facility] Comment on above: Glucose result great er than or equal to 200 mg/dLsuggests DIABETES MELLITUS per A.D.A. criteria. Potassium [Moles/Vol] 4.4 mmol/L 3.5-5.1 [facility] Sodium [Moles/Vol] 142 mmol/L 136-145 [facility] Laboratory - Chemistry and C hemistry - challengeOrdered By: Mi Hernandez on 04-05-2023 CO2 [Moles/Vol] 26.0 mmol/L 21.0-32.0 [facility] Natriuretic peptide B (Bld) [Mass/Vol] 14.8 pg/mL 0-100 [facility] Urea nitrogen/Creatinine [Mass ratio] 24.1 mg/mg 10-20 [facility] No Panel InformationOrdered By: Mi Hernandez on 04-05-2023 Estimated GFR (MDRD) Amer 81 mL/min >60 [facility] Comment on above: GFR Calc Estimated GFR (MDRD) Non-Af Amer 67 mL/min >60 [facility] Comment on above: Non- GFR Calc Serum or plasma calcium mt urement (mass/volume)Ordered By: Mi Hernandez on 04-05-2023 Calcium [Mass/Vol] 9.3 mg/dL 8.5-10.1 [facility] Serum or plasma creatinine m easurement (mass/volume)Ordered By: Mi Hernandez on 04-05-2023 Creatinine [Mass/Vol] 1.12 mg/dL 0.70-1.30 [facility] Comment on above: The validity of the calculated GFR & GFRAA in patients over 70 years has not been determined. Clinical correlation is essential. Serum or plasma urea nitroge n measurement (mass/volume)Ordered By: Mi Hernandez on 04-05-2023 Urea nitrogen [Mass/Vol] 27 mg/dL 7-18 [facility] Thin prep Papanicolaou smear with manual screeningOrdered By: Mi Hernandez on 04-05-2023 Thin prep Papanicolaou smear with manual screening 9 5-15 [facility] Absolute lymphocyte countOrd ered By: Fredis Moon on 03-02-2023 Lymphocytes Auto (Unsp spec) [#/Vol] 1.26 10*3/uL 0.83-4.51 [facility] Basophil percentageOrdered B y: Fredis Moon on 03-02-2023 Basophils/100 WBC (Bld) 0.9 % 0-1 [facility] Bilirubin [Mass/Vol] 0.60 mg/dL 0.20-1.00 [facility] Comment on above: For patients on eltr ombopag therapy, use of Dimension Red Level TBIL is not recommended. Chloride [Moles/Vol] 106 mmol/L 98-107 [facility] Cholesterol [Mass/Vol] 119 mg/dL <200 [facility] Comment on above: <200 mg/dL Desirable 200-240 mg/dL Borderline >240 mg/dL High Risk Eosinophils/100 WBC (Bld) 2.9 % 0-5 [facility] Glucose [Mass/Vol] 129 mg/dL 74-106 [facility] Comment on above: Fasting Glucose resu lt greater than or equal to 126 mg/dL suggests DIABETES MELLITUS per A.D.A. criteria. Neutrophils (Bld) [#/Vol] 4.1 10*3/uL 2.0-7.7 [facility] Neutrophils/100 WBC (Bld) 63.1 % 47-70 [facility] Potassium [Moles/Vol] 4.5 mmol/L 3.5-5.1 [facility] Protein [Mass/Vol] 6.8 g/dL 6.4-8.2 [facility] Sodium [Moles/Vol] 139 mmol/L 136-145 [facility] Testosterone [Mass/Vol] 35.01 ng/dL [facility] Comment on above: CENTRAL 90% REFERENC E RANGES MALE AGE <50 197.44 - 669.58 ng/dL MALE AGE > or = 50 187.72 - 684.19 ng/dL FEMALE AGE <50 8.38 - 35.01 ng/dL FEMALE AGE > or = 50 <7.00 - 35.92 ng/dL Effective as of 09/17/20 Triglyceride [Mass/Vol] 337 mg/dL <199 [facility] Comment on above: The drugs N-Acetylcy steine and Metamizole may falsely depress this assay.Serum Triglycerides Reference Interval Normal <150 mg/dL Borderline high 150 - 199 mg/dL High 200 - 499 mg/dL Very High > or = 500 mg/dL WBC (Bld) [#/Vol] 6.5 10*3/uL 4.4-11.0 [facility] Blood erythrocytes count (nu mber/volume)Ordered By: Fredis Moon on 03-02-2023 RBC (Bld) [#/Vol] 4.80 10*6/uL 4.6-6.2 [facility] Blood hemoglobin measurement (mass/volume)Ordered By: Fredis Moon on 03-02-2023 Hemoglobin (Bld) [Mass/Vol] 13.3 g/dL 13.0-16.5 [facility] Blood lymphocytes/100 leukoc ytesOrdered By: Fredis Moon on 03-02-2023 Lymphocytes/100 WBC (Bld) 19.5 % 19-41 [facility] Blood monocytes/100 leukocyt esOrdered By: Fredis Moon on 03-02-2023 Monocytes/100 WBC (Bld) 12.5 % 0-10 [facility] Blood platelet mean volumeOr dered By: Fredis Moon on 03-02-2023 Platelet mean volume (Bld) [Entitic vol] 9.3 fL 6.2-12.0 [facility] Determination of erythrocyte mean corpuscular volume (MCV)Ordered By: Fredis Moon on 03-02-2023 MCV (RBC) [Entitic vol] 86.0 fL 80-94 [facility] Hematocrit Auto (Bld) [Volum e fraction]Ordered By: Fredis Moon on 03-02-2023 Hematocrit (Bld) [Volume fraction] 41.3 % 40-54 [facility] Laboratory - Chemistry and C hemistry - challengeOrdered By: [facility] 03-02-[facility]23 ALP [Catalytic activity/Vol] 99 U/L 45-117 [facility] ALT [Catalytic activity/Vol] 10 U/L 16-61 [facility] CO2 [Moles/Vol] 26.0 mmol/L 21.0-32.0 [facility] Globulin (S) [Mass/Vol] 3.4 g/dL 2.2-4.2 [facility] Urea nitrogen/Creatinine [Mass ratio] 23.4 mg/mg 10-20 [facility] Laboratory - Hematology and Cell countsOrdered By: Fredis Moon on 03-02-2023 Erythrocyte distribution width (RBC) [Entitic vol] 44.8 fL 35.1-43.9 [facility] Erythrocyte distribution width (RBC) [Ratio] 14.3 % 11.6-14.6 [facility] Immature granulocytes/100 WBC (Bld) 1.100 % 0.0-0.9 [facility] Comment on above: IG% - Immature Granu locytes (promyelocytes, myelocytes and metamyelocytes) > 1% indicates that a LEFT SHIFT is Present. MCH (RBC) [Entitic mass] 27.7 pg 27.0-32.0 [facility] Nucleated RBC/100 WBC (Bld) [Ratio] 0 % 0-5 [facility] MCHC Auto (RBC) [Mass/Vol]Or dered By: Fredis Moon on 03-02-2023 MCHC (RBC) [Mass/Vol] 32.2 g/dL 32-36 [facility] No Panel InformationOrdered By: Fredis Moon on 03-02-2023 Estimated GFR (MDRD) Amer 85 mL/min >60 [facility] Comment on above: GFR Calc Estimated GFR (MDRD) Non-Af Amer 71 mL/min >60 [facility] Comment on above: Non- GFR Calc Thyroid Stimulating Hormone (TSH) 2.27 uIU/mL 0.358-3.74 [facility] Vitamin D 25-Hydroxy 55.0 ng/mL [facility] Comment on above: Vitamin D 25(OH) Sta tus Range Deficiency <20 ng/mL (50nmol/L) Insufficiency 20 - 30 ng/mL (50 - 75 nmol/L) Sufficiency 30 - 100 ng/mL (75 - 250 nmol/L) Toxicity >100 ng/mL (>250 nmol/L) Platelets bldOrdered By: Fredis Moon on 03-02-2023 Platelets (Bld) [#/Vol] 206 10*3/uL 150-450 [facility] Serum or plasma albumin mt urement (mass/volume)Ordered By: Fredis Moon on 03-02-2023 Albumin [Mass/Vol] 3.4 g/dL 3.2-5.0 [facility] Serum or plasma albumin/glob ulin mass ratioOrdered By: Fredis Moon on 03-02-2023 Albumin/Globulin [Mass ratio] 1.0 {ratio} 0.9-2.4 [facility] Serum or plasma calcium mt urement (mass/volume)Ordered By: Fredis Moon on 03-02-2023 Calcium [Mass/Vol] 8.7 mg/dL 8.5-10.1 [facility] Serum or plasma cholesterol in HDL measurement (mass/volume)Ordered By: Fredis Moon on 03-02-2023 Cholesterol in HDL [Mass/Vol] 40 mg/dL >40 [facility] Comment on above: The drugs N-Acetylcy steine and Metamizole may falsely depress this assay. Reference Range HDL <40 mg/dL Low HDL Cholesterol HDL >or= 60 mg/dL High HDL Cholesterol Serum or plasma cholesterol in VLDL measurement (mass/volume)Ordered By: Fredis Moon on 03-02-2023 Cholesterol in VLDL [Mass/Vol] 67 mg/dL 5-40 [facility] Serum or plasma creatinine m easurement (mass/volume)Ordered By: Fredis Moon on 03-02-2023 Creatinine [Mass/Vol] 1.07 mg/dL 0.70-1.30 [facility] Comment on above: The validity of the calculated GFR & GFRAA in patients over 70 years has not been determined. Clinical correlation is essential. Serum or plasma low density lipoprotein (LDL) cholesterol measurement (mass/volume)Ordered By: Fredis Moon on 03-02-2023 Cholesterol in LDL [Mass/Vol] 12 mg/dL 0-130 [facility] Serum or plasma urea nitroge n measurement (mass/volume)Ordered By: Fredis Moon on 03-02-2023 Urea nitrogen [Mass/Vol] 25 mg/dL 7-18 [facility] Thin prep Papanicolaou smear with manual screeningOrdered By: Fredis Moon on 03-02-2023 Thin prep Papanicolaou smear with manual screening 18 U/L 15-37 [facility] Thin prep Papanicolaou smear with manual screening 7 5-15 [facility] Whole blood hemoglobin A1c/t otal hemoglobin ratio (mass fraction)Ordered By: Fredis Moon on 03-02-2023 HbA1c (Bld) [Mass fraction] 7.5 % 3.8-5.6 [facility] Comment on above: Normal < 5.7 % Predi abetic 5.7 - 6.4 % Diabetic >or= 6.5 % Please note range changes. No Panel InformationOrdered By: Yovanny Dempsey on 01-15-2023 Prostate Specific Antigen Total < 0.01 ng/mL 0.0-4.0 [facility] Comment on above: This test was perfor med using the TPSA assay method for the[employer] chemistry system. Values obtained with differentassay methods cannot be used interchangably.When changing PSA assays in the course of monitoring apatient, additional sequential testing should be carriedout to confirm baseline values. Glucose Glucometer (BldC) [M ass/Vol]Ordered By: Pamela Cramer on 12-30-2022 Glucose [Mass/Vol] 170 mg/dL 74-106 [facility] Comment on above: MANAGEMENT OF PATIEN T CARE PER NURSING PROTOCOL Absolute lymphocyte countOrd ered By: Fredis Moon on 11-30-2022 Lymphocytes Auto (Unsp spec) [#/Vol] 1.40 10*3/uL 0.83-4.51 [facility] Basophil percentageOrdered B y: Fredis Moon on 11-30-2022 Basophils/100 WBC (Bld) 0.7 % 0-1 [facility] Bilirubin [Mass/Vol] 0.30 mg/dL 0.20-1.00 [facility] Comment on above: For patients on eltr ombopag therapy, use of Dimension Red Level TBIL is not recommended. Chloride [Moles/Vol] 107 mmol/L 98-107 [facility] Cholesterol [Mass/Vol] 122 mg/dL <200 [facility] Comment on above: <200 mg/dL Desirable 200-240 mg/dL Borderline >240 mg/dL High Risk Eosinophils/100 WBC (Bld) 1.4 % 0-5 [facility] Glucose [Mass/Vol] 112 mg/dL 74-106 [facility] Comment on above: Fasting Glucose resu lt from 100 to 125 mg/dL suggests IMPAIRED HOMEOSTASIS per A.D.A. criteria. Neutrophils (Bld) [#/Vol] 5.9 10*3/uL 2.0-7.7 [facility] Neutrophils/100 WBC (Bld) 70.0 % 47-70 [facility] Potassium [Moles/Vol] 4.7 mmol/L 3.5-5.1 [facility] Protein [Mass/Vol] 6.8 g/dL 6.4-8.2 [facility] Sodium [Moles/Vol] 143 mmol/L 136-145 [facility] Testosterone [Mass/Vol] 39.15 ng/dL [facility] Comment on above: CENTRAL 90% REFERENC E RANGES MALE AGE <50 197.44 - 669.58 ng/dL MALE AGE > or = 50 187.72 - 684.19 ng/dL FEMALE AGE <50 8.38 - 35.01 ng/dL FEMALE AGE > or = 50 <7.00 - 35.92 ng/dL Effective as of 09/17/20 Triglyceride [Mass/Vol] 419 mg/dL <199 [facility] Comment on above: The drugs N-Acetylcy steine and Metamizole may falsely depress this assay. TRIGLYCERIDE IS GREATER THAN 400 mg/dL. LDL RESULT IS INVALID AND WILL NOT BE REPORTED.Serum Triglycerides Reference Interval Normal <150 mg/dL Borderline high 150 - 199 mg/dL High 200 - 499 mg/dL Very High > or = 500 mg/dL WBC (Bld) [#/Vol] 8.4 10*3/uL 4.4-11.0 [facility] Blood erythrocytes count (nu mber/volume)Ordered By: Fredis Moon on 11-30-2022 RBC (Bld) [#/Vol] 4.67 10*6/uL 4.6-6.2 [facility] Blood hemoglobin measurement (mass/volume)Ordered By: Fredis Moon on 11-30-2022 Hemoglobin (Bld) [Mass/Vol] 13.2 g/dL 13.0-16.5 [facility] Blood lymphocytes/100 leukoc ytesOrdered By: Fredis Moon on 11-30-2022 Lymphocytes/100 WBC (Bld) 16.6 % 19-41 [facility] Blood monocytes/100 leukocyt esOrdered By: Fredis Moon on 11-30-2022 Monocytes/100 WBC (Bld) 10.6 % 0-10 [facility] Blood platelet mean volumeOr dered By: Fredis Moon on 11-30-2022 Platelet mean volume (Bld) [Entitic vol] 9.0 fL 6.2-12.0 [facility] Determination of erythrocyte mean corpuscular volume (MCV)Ordered By: Fredis Moon on 11-30-2022 MCV (RBC) [Entitic vol] 88.7 fL 80-94 [facility] Hematocrit Auto (Bld) [Volum e fraction]Ordered By: Fredis Moon on 11-30-2022 Hematocrit (Bld) [Volume fraction] 41.4 % 40-54 [facility] Laboratory - Chemistry and C hemistry - challengeOrdered By: Fredis Moon on 11-30-2022 ALP [Catalytic activity/Vol] 102 U/L 45-117 [facility] ALT [Catalytic activity/Vol] 11 U/L 16-61 [facility] CO2 [Moles/Vol] 28.0 mmol/L 21.0-32.0 [facility] Globulin (S) [Mass/Vol] 3.5 g/dL 2.2-4.2 [facility] Urea nitrogen/Creatinine [Mass ratio] 22.9 mg/mg 10-20 [facility] Laboratory - Hematology and Cell countsOrdered By: Fredis Moon on 11-30-2022 Erythrocyte distribution width (RBC) [Entitic vol] 46.8 fL 35.1-43.9 [facility] Erythrocyte distribution width (RBC) [Ratio] 14.6 % 11.6-14.6 [facility] Immature granulocytes/100 WBC (Bld) 0.700 % 0.0-0.9 [facility] Comment on above: IG% - Immature Granu locytes (promyelocytes, myelocytes and metamyelocytes) > 1% indicates that a LEFT SHIFT is Present. MCH (RBC) [Entitic mass] 28.3 pg 27.0-32.0 [facility] Nucleated RBC/100 WBC (Bld) [Ratio] 0 % 0-5 [facility] MCHC Auto (RBC) [Mass/Vol]Or dered By: Fredis Moon on 11-30-2022 MCHC (RBC) [Mass/Vol] 31.9 g/dL 32-36 [facility] No Panel InformationOrdered By: Fredis Moon on 11-30-2022 Estimated GFR (MDRD) Amer 84 mL/min >60 [facility] Comment on above: GFR Calc Estimated GFR (MDRD) Non-Af Amer 69 mL/min >60 [facility] Comment on above: Non- GFR Calc Thyroid Stimulating Hormone (TSH) 1.90 uIU/mL 0.358-3.74 [facility] Vitamin D 25-Hydroxy 47.6 ng/mL [facility] Comment on above: Vitamin D 25(OH) Sta tus Range Deficiency <20 ng/mL (50nmol/L) Insufficiency 20 - 30 ng/mL (50 - 75 nmol/L) Sufficiency 30 - 100 ng/mL (75 - 250 nmol/L) Toxicity >100 ng/mL (>250 nmol/L) Platelets bldOrdered By: Fredis Moon on 11-30-2022 Platelets (Bld) [#/Vol] 203 10*3/uL 150-450 [facility] Serum or plasma albumin mt urement (mass/volume)Ordered By: Fredis Moon on 11-30-2022 Albumin [Mass/Vol] 3.3 g/dL 3.2-5.0 [facility] Serum or plasma albumin/glob ulin mass ratioOrdered By: Fredis Moon on 11-30-2022 Albumin/Globulin [Mass ratio] 0.9 {ratio} 0.9-2.4 [facility] Serum or plasma calcium mt urement (mass/volume)Ordered By: Fredis Moon on 11-30-2022 Calcium [Mass/Vol] 8.8 mg/dL 8.5-10.1 [facility] Serum or plasma cholesterol in HDL measurement (mass/volume)Ordered By: Fredis Moon on 11-30-2022 Cholesterol in HDL [Mass/Vol] 39 mg/dL >40 [facility] Comment on above: The drugs N-Acetylcy steine and Metamizole may falsely depress this assay. Reference Range HDL <40 mg/dL Low HDL Cholesterol HDL >or= 60 mg/dL High HDL Cholesterol Serum or plasma cholesterol in VLDL measurement (mass/volume)Ordered By: Fredis Moon on 11-30-2022 Cholesterol in VLDL [Mass/Vol] [facility] Comment on above: Test not performed Serum or plasma creatinine m easurement (mass/volume)Ordered By: Fredis Moon on 11-30-2022 Creatinine [Mass/Vol] 1.09 mg/dL 0.70-1.30 [facility] Comment on above: The validity of the calculated GFR & GFRAA in patients over 70 years has not been determined. Clinical correlation is essential. Serum or plasma low density lipoprotein (LDL) cholesterol measurement (mass/volume)Ordered By: Fredis Moon on 11-30-2022 Cholesterol in LDL [Mass/Vol] [facility] Comment on above: Test not performed Serum or plasma urea nitroge n measurement (mass/volume)Ordered By: Fredis Moon on 11-30-2022 Urea nitrogen [Mass/Vol] 25 mg/dL 7-18 [facility] Thin prep Papanicolaou smear with manual screeningOrdered By: Fredis Moon on 11-30-2022 Thin prep Papanicolaou smear with manual screening 6 U/L 15-37 [facility] Thin prep Papanicolaou smear with manual screening 8 5-15 [facility] Whole blood hemoglobin A1c/t otal hemoglobin ratio (mass fraction)Ordered By: Fredis Moon on 11-30-2022 HbA1c (Bld) [Mass fraction] 7.2 % 3.8-5.6 [facility] Comment on above: Normal < 5.7 % Predi abetic 5.7 - 6.4 % Diabetic >or= 6.5 % Please note range changes. Absolute lymphocyte countOrd ered By: Fredis Moon on 08-27-2022 Lymphocytes Auto (Unsp spec) [#/Vol] 0.96 10*3/uL 0.83-4.51 [facility] Basophil percentageOrdered B y: Fredis Moon on 08-27-2022 Basophils/100 WBC (Bld) 0.9 % 0-1 [facility] Bilirubin [Mass/Vol] 0.40 mg/dL 0.20-1.00 [facility] Comment on above: For patients on eltr ombopag therapy, use of Dimension Red Level TBIL is not recommended. Chloride [Moles/Vol] 107 mmol/L 98-107 [facility] Cholesterol [Mass/Vol] 119 mg/dL <200 [facility] Comment on above: <200 mg/dL Desirable 200-240 mg/dL Borderline >240 mg/dL High Risk Eosinophils/100 WBC (Bld) 1.8 % 0-5 [facility] Glucose [Mass/Vol] 163 mg/dL 74-106 [facility] Comment on above: Fasting Glucose resu lt greater than or equal to 126 mg/dL suggests DIABETES MELLITUS per A.D.A. criteria. Neutrophils (Bld) [#/Vol] 3.6 10*3/uL 2.0-7.7 [facility] Neutrophils/100 WBC (Bld) 66.9 % 47-70 [facility] Potassium [Moles/Vol] 4.1 mmol/L 3.5-5.1 [facility] Protein [Mass/Vol] 6.8 g/dL 6.4-8.2 [facility] Sodium [Moles/Vol] 139 mmol/L 136-145 [facility] Testosterone [Mass/Vol] 58.15 ng/dL [facility] Comment on above: CENTRAL 90% REFERENC E RANGES MALE AGE <50 197.44 - 669.58 ng/dL MALE AGE > or = 50 187.72 - 684.19 ng/dL FEMALE AGE <50 8.38 - 35.01 ng/dL FEMALE AGE > or = 50 <7.00 - 35.92 ng/dL Effective as of 09/17/20 Triglyceride [Mass/Vol] 199 mg/dL <199 [facility] Comment on above: The drugs N-Acetylcy steine and Metamizole may falsely depress this assay.Serum Triglycerides Reference Interval Normal <150 mg/dL Borderline high 150 - 199 mg/dL High 200 - 499 mg/dL Very High > or = 500 mg/dL WBC (Bld) [#/Vol] 5.5 10*3/uL 4.4-11.0 [facility] Blood erythrocytes count (nu mber/volume)Ordered By: Fredis Mono on 08-27-2022 RBC (Bld) [#/Vol] 4.65 10*6/uL 4.6-6.2 [facility] Blood hemoglobin measurement (mass/volume)Ordered By: Fredis Moon on 08-27-2022 Hemoglobin (Bld) [Mass/Vol] 13.5 g/dL 13.0-16.5 [facility] Blood lymphocytes/100 leukoc ytesOrdered By: Fredis Moon on 08-27-2022 Lymphocytes/100 WBC (Bld) 17.6 % 19-41 [facility] Blood monocytes/100 leukocyt esOrdered By: Fredis Moon on 08-27-2022 Monocytes/100 WBC (Bld) 11.7 % 0-10 [facility] Blood platelet mean volumeOr dered By: Fredis Moon on 08-27-2022 Platelet mean volume (Bld) [Entitic vol] 9.4 fL 6.2-12.0 [facility] Determination of erythrocyte mean corpuscular volume (MCV)Ordered By: Fredis Moon on 08-27-2022 MCV (RBC) [Entitic vol] 86.2 fL 80-94 [facility] Hematocrit Auto (Bld) [Volum e fraction]Ordered By: Fredis Moon on 08-27-2022 Hematocrit (Bld) [Volume fraction] 40.1 % 40-54 [facility] Laboratory - Chemistry and C hemistry - challengeOrdered By: Fredis Moon on 08-27-2022 ALP [Catalytic activity/Vol] 95 U/L 45-117 [facility] ALT [Catalytic activity/Vol] 26 U/L 16-61 [facility] CO2 [Moles/Vol] 26.0 mmol/L 21.0-32.0 [facility] Globulin (S) [Mass/Vol] 3.4 g/dL 2.2-4.2 [facility] Urea nitrogen/Creatinine [Mass ratio] 25.5 mg/mg 10-20 [facility] Laboratory - Hematology and Cell countsOrdered By: Fredis Moon on 08-27-2022 Erythrocyte distribution width (RBC) [Entitic vol] 43.4 fL 35.1-43.9 [facility] Erythrocyte distribution width (RBC) [Ratio] 14.0 % 11.6-14.6 [facility] Immature granulocytes/100 WBC (Bld) 1.100 % 0.0-0.9 [facility] Comment on above: IG% - Immature Granu locytes (promyelocytes, myelocytes and metamyelocytes) > 1% indicates that a LEFT SHIFT is Present. MCH (RBC) [Entitic mass] 29.0 pg 27.0-32.0 [facility] Nucleated RBC/100 WBC (Bld) [Ratio] 0 % 0-5 [facility] MCHC Auto (RBC) [Mass/Vol]Or dered By: Fredis Moon on 08-27-2022 MCHC (RBC) [Mass/Vol] 33.7 g/dL 32-36 [facility] No Panel InformationOrdered By: Fredis Moon on 08-27-2022 Estimated GFR (MDRD) Amer 94 mL/min >60 [facility] Comment on above: GFR Calc Estimated GFR (MDRD) Non-Af Amer 78 mL/min >60 [facility] Comment on above: Non- GFR Calc Thyroid Stimulating Hormone (TSH) 1.92 uIU/mL 0.358-3.74 [facility] Vitamin D 25-Hydroxy 62.6 ng/mL [facility] Comment on above: Vitamin D 25(OH) Sta tus Range Deficiency <20 ng/mL (50nmol/L) Insufficiency 20 - 30 ng/mL (50 - 75 nmol/L) Sufficiency 30 - 100 ng/mL (75 - 250 nmol/L) Toxicity >100 ng/mL (>250 nmol/L) Platelets bldOrdered By: Fredis Moon on 08-27-2022 Platelets (Bld) [#/Vol] 203 10*3/uL 150-450 [facility] Serum or plasma albumin mt urement (mass/volume)Ordered By: Fredis Moon on 08-27-2022 Albumin [Mass/Vol] 3.4 g/dL 3.2-5.0 [facility] Serum or plasma albumin/glob ulin mass ratioOrdered By: Fredis Moon on 08-27-2022 Albumin/Globulin [Mass ratio] 1.0 {ratio} 0.9-2.4 [facility] Serum or plasma calcium mt urement (mass/volume)Ordered By: Fredis Moon 08-27-2022 Calcium [Mass/Vol] 8.6 mg/dL 8.5-10.1 [facility] Serum or plasma cholesterol in HDL measurement (mass/volume)Ordered By: Fredis Moon 08-27-2022 Cholesterol in HDL [Mass/Vol] 39 mg/dL >40 [facility] Comment on above: The drugs N-Acetylcy steine and Metamizole may falsely depress this assay. Reference Range HDL <40 mg/dL Low HDL Cholesterol HDL >or= 60 mg/dL High HDL Cholesterol Serum or plasma cholesterol in VLDL measurement (mass/volume)Ordered By: Fredis Moon on 08-27-2022 Cholesterol in VLDL [Mass/Vol] 40 mg/dL 5-40 [facility] Serum or plasma creatinine m easurement (mass/volume)Ordered By: Fredis Moon 08-27-2022 Creatinine [Mass/Vol] 0.98 mg/dL 0.70-1.30 [facility] Comment on above: The validity of the calculated GFR & GFRAA in patients over 70 years has not been determined. Clinical correlation is essential. Serum or plasma low density lipoprotein (LDL) cholesterol measurement (mass/volume)Ordered By: Fredis Moon on 08-27-2022 Cholesterol in LDL [Mass/Vol] 40 mg/dL 0-130 [facility] Serum or plasma urea nitroge n measurement (mass/volume)Ordered By: Fredis Moon on 08-27-2022 Urea nitrogen [Mass/Vol] 25 mg/dL 7-18 [facility] Thin prep Papanicolaou smear with manual screeningOrdered By: Fredis Moon on 08-27-2022 Thin prep Papanicolaou smear with manual screening 19 U/L 15-37 [facility] Thin prep Papanicolaou smear with manual screening 6 5-15 [facility] Whole blood hemoglobin A1c/t otal hemoglobin ratio (mass fraction)Ordered By: Fredis Moon on 08-27-2022 HbA1c (Bld) [Mass fraction] 7.0 % 3.8-5.6 [facility] Comment on above: Normal < 5.7 % Predi abetic 5.7 - 6.4 % Diabetic >or= 6.5 % Please note range changes. No Panel InformationOrdered By: Dr. Dempsey on 07-10-2022 Prostate Specific Antigen Total < 0.01 ng/mL 0.0-4.0 [facility] Comment on above: This test was perfor med using the TPSA assay method for the[employer] chemistry system. Values obtained with differentassay methods cannot be used interchangably.When changing PSA assays in the course of monitoring apatient, additional sequential testing should be carriedout to confirm baseline values. Absolute lymphocyte countOrd ered By: Dr. Moon on 04-30-2022 Lymphocytes Auto (Unsp spec) [#/Vol] 1.01 10*3/uL 0.83-4.51 [facility] Basophil percentageOrdered B y: Dr. Moon on 04-30-2022 Basophils/100 WBC (Bld) 0.9 % 0-1 [facility] Bilirubin [Mass/Vol] 0.40 mg/dL 0.20-1.00 [facility] Comment on above: For patients on eltr ombopag therapy, use of Dimension Red Level TBIL is not recommended. Chloride [Moles/Vol] 103 mmol/L 98-107 [facility] Cholesterol [Mass/Vol] 213 mg/dL <200 [facility] Comment on above: <200 mg/dL Desirable 200-240 mg/dL Borderline >240 mg/dL High Risk Eosinophils/100 WBC (Bld) 1.9 % 0-5 [facility] Glucose [Mass/Vol] 129 mg/dL 74-106 [facility] Comment on above: Fasting Glucose resu lt greater than or equal to 126 mg/dL suggests DIABETES MELLITUS per A.D.A. criteria. Neutrophils (Bld) [#/Vol] 4.0 10*3/uL 2.0-7.7 [facility] Neutrophils/100 WBC (Bld) 67.6 % 47-70 [facility] Potassium [Moles/Vol] 4.4 mmol/L 3.5-5.1 [facility] Protein [Mass/Vol] 7.6 g/dL 6.4-8.2 [facility] Sodium [Moles/Vol] 138 mmol/L 136-145 [facility] Testosterone [Mass/Vol] 66.62 ng/dL [facility] Comment on above: CENTRAL 90% REFERENC E RANGES MALE AGE <50 197.44 - 669.58 ng/dL MALE AGE > or = 50 187.72 - 684.19 ng/dL FEMALE AGE <50 8.38 - 35.01 ng/dL FEMALE AGE > or = 50 <7.00 - 35.92 ng/dL Effective as of 09/17/20 Triglyceride [Mass/Vol] 352 mg/dL <199 [facility] Comment on above: The drugs N-Acetylcy steine and Metamizole may falsely depress this assay.Serum Triglycerides Reference Interval Normal <150 mg/dL Borderline high 150 - 199 mg/dL High 200 - 499 mg/dL Very High > or = 500 mg/dL WBC (Bld) [#/Vol] 5.9 10*3/uL 4.4-11.0 [facility] Blood erythrocytes count (nu mber/volume)Ordered By: Dr. Moon on 04-30-2022 RBC (Bld) [#/Vol] 5.19 10*6/uL 4.6-6.2 [facility] Blood hemoglobin measurement (mass/volume)Ordered By: Dr. Moon on 04-30-2022 Hemoglobin (Bld) [Mass/Vol] 14.4 g/dL 13.0-16.5 [facility] Blood lymphocytes/100 leukoc ytesOrdered By: Dr. Moon on 04-30-2022 Lymphocytes/100 WBC (Bld) 17.3 % 19-41 [facility] Blood monocytes/100 leukocyt esOrdered By: Dr. Moon on 04-30-2022 Monocytes/100 WBC (Bld) 10.6 % 0-10 [facility] Blood platelet mean volumeOr dered By: Dr. Moon on 04-30-2022 Platelet mean volume (Bld) [Entitic vol] 9.6 fL 6.2-12.0 [facility] Determination of erythrocyte mean corpuscular volume (MCV)Ordered By: Dr. Moon on 04-30-2022 MCV (RBC) [Entitic vol] 87.1 fL 80-94 [facility] Hematocrit Auto (Bld) [Volum e fraction]Ordered By: Dr. Moon on 04-30-2022 Hematocrit (Bld) [Volume fraction] 45.2 % 40-54 [facility] Laboratory - Chemistry and C hemistry - challengeOrdered By: Dr. Moon on 04-30-2022 ALP [Catalytic activity/Vol] 95 U/L 45-117 [facility] ALT [Catalytic activity/Vol] 10 U/L 16-61 [facility] CO2 [Moles/Vol] 25.0 mmol/L 21.0-32.0 [facility] Globulin (S) [Mass/Vol] 3.8 g/dL 2.2-4.2 [facility] Urea nitrogen/Creatinine [Mass ratio] 23.4 mg/mg 10-20 [facility] Laboratory - Hematology and Cell countsOrdered By: Dr. Moon on 04-30-2022 Erythrocyte distribution width (RBC) [Entitic vol] 45.9 fL 35.1-43.9 [facility] Erythrocyte distribution width (RBC) [Ratio] 14.5 % 11.6-14.6 [facility] Immature granulocytes/100 WBC (Bld) 1.700 % 0.0-0.9 [facility] Comment on above: IG% - Immature Granu locytes (promyelocytes, myelocytes and metamyelocytes) > 1% indicates that a LEFT SHIFT is Present. MCH (RBC) [Entitic mass] 27.7 pg 27.0-32.0 [facility] Nucleated RBC/100 WBC (Bld) [Ratio] 0 % 0-5 [facility] MCHC Auto (RBC) [Mass/Vol]Or dered By: Dr. Moon on 04-30-2022 MCHC (RBC) [Mass/Vol] 31.9 g/dL 32-36 [facility] No Panel InformationOrdered By: Dr. Mono on 04-30-2022 Estimated GFR (MDRD) Amer 72 mL/min >60 [facility] Comment on above: GFR Calc Estimated GFR (MDRD) Non-Af Amer 60 mL/min >60 [facility] Comment on above: Non- GFR Calc Prostate Specific Antigen Screen 0.02 ng/mL 0.00-4.00 [facility] Comment on above: This test was perfor med using the TPSA assay method for [email or web address] chemistry system. Values obtained with differentassay methods cannot be used interchangably.When changing PSA assays in the course of monitoring apatient, additional sequential testing should be carriedout to confirm baseline values. Thyroid Stimulating Hormone (TSH) 1.87 uIU/mL 0.358-3.74 [facility] Vitamin D 25-Hydroxy 47.6 ng/mL [facility] Comment on above: Vitamin D 25(OH) Sta tus Range Deficiency <20 ng/mL (50nmol/L) Insufficiency 20 - 30 ng/mL (50 - 75 nmol/L) Sufficiency 30 - 100 ng/mL (75 - 250 nmol/L) Toxicity >100 ng/mL (>250 nmol/L) Platelets bldOrdered By: Dr. Moon on 04-30-2022 Platelets (Bld) [#/Vol] 213 10*3/uL 150-450 [facility] Serum or plasma albumin mt urement (mass/volume)Ordered By: Dr. Moon on 04-30-2022 Albumin [Mass/Vol] 3.8 g/dL 3.2-5.0 [facility] Serum or plasma albumin/glob ulin mass ratioOrdered By: Dr. Moon on 04-30-2022 Albumin/Globulin [Mass ratio] 1.0 {ratio} 0.9-2.4 [facility] Serum or plasma calcium mt urement (mass/volume)Ordered By: Dr. Moon on 04-30-2022 Calcium [Mass/Vol] 9.6 mg/dL 8.5-10.1 [facility] Serum or plasma cholesterol in HDL measurement (mass/volume)Ordered By: Dr. Moon on 04-30-2022 Cholesterol in HDL [Mass/Vol] 46 mg/dL >40 [facility] Comment on above: The drugs N-Acetylcy steine and Metamizole may falsely depress this assay. Reference Range HDL <40 mg/dL Low HDL Cholesterol HDL >or= 60 mg/dL High HDL Cholesterol Serum or plasma cholesterol in VLDL measurement (mass/volume)Ordered By: Dr. Moon on 04-30-2022 Cholesterol in VLDL [Mass/Vol] 70 mg/dL 5-40 [facility] Serum or plasma creatinine m easurement (mass/volume)Ordered By: Dr. Moon on 04-30-2022 Creatinine [Mass/Vol] 1.24 mg/dL 0.70-1.30 [facility] Comment on above: The validity of the calculated GFR & GFRAA in patients over 70 years has not been determined. Clinical correlation is essential. Serum or plasma low density lipoprotein (LDL) cholesterol measurement (mass/volume)Ordered By: Dr. Moon on 04-30-2022 Cholesterol in LDL [Mass/Vol] 97 mg/dL 0-130 [facility] Serum or plasma urea nitroge n measurement (mass/volume)Ordered By: Dr. Moon on 04-30-2022 Urea nitrogen [Mass/Vol] 29 mg/dL 7-18 [facility] Thin prep Papanicolaou smear with manual screeningOrdered By: Dr. Moon on 04-30-2022 Thin prep Papanicolaou smear with manual screening 16 U/L 15-37 [facility] Thin prep Papanicolaou smear with manual screening 10 5-15 [facility] Whole blood hemoglobin A1c/t otal hemoglobin ratio (mass fraction)Ordered By: Dr. Moon on 04-30-2022 HbA1c (Bld) [Mass fraction] 7.1 % 3.8-5.6 [facility] Comment on above: Normal < 5.7 % Predi abetic 5.7 - 6.4 % Diabetic >or= 6.5 % Please note range changes. Absolute lymphocyte countOrd ered By: Dr. Moon on 01-29-2022 Lymphocytes Auto (Unsp spec) [#/Vol] 1.15 10*3/uL 0.83-4.51 [facility] Basophil percentageOrdered B y: Dr. Moon on 01-29-2022 Basophils/100 WBC (Bld) 0.9 % 0-1 [facility] Bilirubin [Mass/Vol] 0.40 mg/dL 0.20-1.00 [facility] Comment on above: For patients on eltr ombopag therapy, use of Dimension Red Level TBIL is not recommended. Chloride [Moles/Vol] 103 mmol/L 98-107 [facility] Cholesterol [Mass/Vol] 116 mg/dL <200 [facility] Comment on above: <200 mg/dL Desirable 200-240 mg/dL Borderline >240 mg/dL High Risk Eosinophils/100 WBC (Bld) 1.6 % 0-5 [facility] Glucose [Mass/Vol] 126 mg/dL 74-106 [facility] Comment on above: Fasting Glucose resu lt greater than or equal to 126 mg/dL suggests DIABETES MELLITUS per A.D.A. criteria. Neutrophils (Bld) [#/Vol] 3.5 10*3/uL 2.0-7.7 [facility] Neutrophils/100 WBC (Bld) 62.4 % 47-70 [facility] Potassium [Moles/Vol] 4.1 mmol/L 3.5-5.1 [facility] Protein [Mass/Vol] 7.4 g/dL 6.4-8.2 [facility] Sodium [Moles/Vol] 140 mmol/L 136-145 [facility] Testosterone [Mass/Vol] 83.70 ng/dL [facility] Comment on above: CENTRAL 90% REFERENC E RANGES MALE AGE <50 197.44 - 669.58 ng/dL MALE AGE > or = 50 187.72 - 684.19 ng/dL FEMALE AGE <50 8.38 - 35.01 ng/dL FEMALE AGE > or = 50 <7.00 - 35.92 ng/dL Effective as of 09/17/20 Triglyceride [Mass/Vol] 194 mg/dL <199 [facility] Comment on above: The drugs N-Acetylcy steine and Metamizole may falsely depress this assay.Serum Triglycerides Reference Interval Normal <150 mg/dL Borderline high 150 - 199 mg/dL High 200 - 499 mg/dL Very High > or = 500 mg/dL WBC (Bld) [#/Vol] 5.5 10*3/uL 4.4-11.0 [facility] Blood erythrocytes count (nu mber/volume)Ordered By: Dr. Moon on 01-29-2022 RBC (Bld) [#/Vol] 5.14 10*6/uL 4.6-6.2 [facility] Blood hemoglobin measurement (mass/volume)Ordered By: Dr. Moon on 01-29-2022 Hemoglobin (Bld) [Mass/Vol] 14.4 g/dL 13.0-16.5 [facility] Blood lymphocytes/100 leukoc ytesOrdered By: Dr. Moon on 01-29-2022 Lymphocytes/100 WBC (Bld) 20.8 % 19-41 [facility] Blood monocytes/100 leukocyt esOrdered By: Dr. Moon on 01-29-2022 Monocytes/100 WBC (Bld) 13.4 % 0-10 [facility] Blood platelet mean volumeOr dered By: Dr. Moon on 01-29-2022 Platelet mean volume (Bld) [Entitic vol] 9.6 fL 6.2-12.0 [facility] Determination of erythrocyte mean corpuscular volume (MCV)Ordered By: Dr. Moon on 01-29-2022 MCV (RBC) [Entitic vol] 86.8 fL 80-94 [facility] Hematocrit Auto (Bld) [Volum e fraction]Ordered By: Dr. Moon on 01-29-2022 Hematocrit (Bld) [Volume fraction] 44.6 % 40-54 [facility] Laboratory - Chemistry and C hemistry - challengeOrdered By: Dr. Moon on 01-29-2022 ALP [Catalytic activity/Vol] 99 U/L 45-117 [facility] ALT [Catalytic activity/Vol] 13 U/L 16-61 [facility] CO2 [Moles/Vol] 32.0 mmol/L 21.0-32.0 [facility] Globulin (S) [Mass/Vol] 3.7 g/dL 2.2-4.2 [facility] Urea nitrogen/Creatinine [Mass ratio] 25.0 mg/mg 10-20 [facility] Laboratory - Hematology and Cell countsOrdered By: Dr. Moon on 01-29-2022 Erythrocyte distribution width (RBC) [Entitic vol] 44.6 fL 35.1-43.9 [facility] Erythrocyte distribution width (RBC) [Ratio] 14.1 % 11.6-14.6 [facility] Immature granulocytes/100 WBC (Bld) 0.900 % 0.0-0.9 [facility] Comment on above: IG% - Immature Granu locytes (promyelocytes, myelocytes and metamyelocytes) > 1% indicates that a LEFT SHIFT is Present. MCH (RBC) [Entitic mass] 28.0 pg 27.0-32.0 [facility] Nucleated RBC/100 WBC (Bld) [Ratio] 0 % 0-5 [facility] MCHC Auto (RBC) [Mass/Vol]Or dered By: Dr. Moon on 01-29-2022 MCHC (RBC) [Mass/Vol] 32.3 g/dL 32-36 [facility] No Panel InformationOrdered By: Dr. Moon on 01-29-2022 Estimated GFR (MDRD) Amer 81 mL/min >60 [facility] Comment on above: GFR Calc Estimated GFR (MDRD) Non-Af Amer 67 mL/min >60 [facility] Comment on above: Non- GFR Calc Thyroid Stimulating Hormone (TSH) 2.69 uIU/mL 0.358-3.74 [facility] Vitamin D 25-Hydroxy 58.1 ng/mL [facility] Comment on above: Vitamin D 25(OH) Sta tus Range Deficiency <20 ng/mL (50nmol/L) Insufficiency 20 - 30 ng/mL (50 - 75 nmol/L) Sufficiency 30 - 100 ng/mL (75 - 250 nmol/L) Toxicity >100 ng/mL (>250 nmol/L) Platelets bldOrdered By: Dr. Moon on 01-29-2022 Platelets (Bld) [#/Vol] 189 10*3/uL 150-450 [facility] Serum or plasma albumin mt urement (mass/volume)Ordered By: Dr. Moon on 01-29-2022 Albumin [Mass/Vol] 3.7 g/dL 3.2-5.0 [facility] Serum or plasma albumin/glob ulin mass ratioOrdered By: Dr. Moon on 01-29-2022 Albumin/Globulin [Mass ratio] 1.0 {ratio} 0.9-2.4 [facility] Serum or plasma calcium mt urement (mass/volume)Ordered By: Dr. Moon on 01-29-2022 Calcium [Mass/Vol] 9.2 mg/dL 8.5-10.1 [facility] Serum or plasma cholesterol in HDL measurement (mass/volume)Ordered By: Dr. Moon on 01-29-2022 Cholesterol in HDL [Mass/Vol] 43 mg/dL >40 [facility] Comment on above: The drugs N-Acetylcy steine and Metamizole may falsely depress this assay. Reference Range HDL <40 mg/dL Low HDL Cholesterol HDL >or= 60 mg/dL High HDL Cholesterol Serum or plasma cholesterol in VLDL measurement (mass/volume)Ordered By: Dr. Moon on 01-29-2022 Cholesterol in VLDL [Mass/Vol] 39 mg/dL 5-40 [facility] Serum or plasma creatinine m easurement (mass/volume)Ordered By: Dr. Moon on 01-29-2022 Creatinine [Mass/Vol] 1.12 mg/dL 0.70-1.30 [facility] Comment on above: The validity of the calculated GFR & GFRAA in patients over 70 years has not been determined. Clinical correlation is essential. Serum or plasma low density lipoprotein (LDL) cholesterol measurement (mass/volume)Ordered By: Dr. Moon on 01-29-2022 Cholesterol in LDL [Mass/Vol] 34 mg/dL 0-130 [facility] Serum or plasma urea nitroge n measurement (mass/volume)Ordered By: Dr. Moon on 01-29-2022 Urea nitrogen [Mass/Vol] 28 mg/dL 7-18 [facility] Thin prep Papanicolaou smear with manual screeningOrdered By: Dr. Moon on 01-29-2022 Thin prep Papanicolaou smear with manual screening 13 U/L 15-37 [facility] Thin prep Papanicolaou smear with manual screening 5 5-15 [facility] Whole blood hemoglobin A1c/t otal hemoglobin ratio (mass fraction)Ordered By: Dr. Moon on 01-29-2022 HbA1c (Bld) [Mass fraction] 7.3 % 3.8-5.6 [facility] Comment on above: Normal < 5.7 % Predi abetic 5.7 - 6.4 % Diabetic >or= 6.5 % Please note range changes. No Panel InformationOrdered By: MARY JANE Gregorio on 01-14-2022 Prostate Specific Antigen Total < 0.01 ng/mL 0.0-4.0 [facility] Comment on above: This test was perfor med using the TPSA assay method for [employer] chemistry system. Values obtained with differentassay methods cannot be used interchangably.When changing PSA assays in the course of monitoring apatient, additional sequential testing should be carriedout to confirm baseline values. Absolute lymphocyte counton 10-30-2021 Lymphocytes Auto (Unsp spec) [#/Vol] 1.16 10*3/uL 0.83-4.51 [facility] Work Phone: Basophil percentageon 2021 Basophils/100 WBC (Bld) 0.4 % 0-1 [facility] Work Phone: Bilirubin [Mass/Vol] 0.40 mg/dL 0.20-1.00 [facility] Work Phone: Comment on above: For patients on eltr ombopag therapy, use of Dimension Red Level TBIL is not recommended. Chloride [Moles/Vol] 105 mmol/L 98-107 [facility] Work Phone: Cholesterol [Mass/Vol] 95 mg/dL <200 [facility] Work Phone: Comment on above: <200 mg/dL Desirable 200-240 mg/dL Borderline >240 mg/dL High Risk Eosinophils/100 WBC (Bld) 3.1 % 0-5 [facility] Work Phone: Glucose [Mass/Vol] 133 mg/dL 74-106 [facility] Work Phone: Comment on above: Fasting Glucose resu lt greater than or equal to 126 mg/dL suggests DIABETES MELLITUS per A.D.A. criteria. Neutrophils (Bld) [#/Vol] 4.4 10*3/uL 2.0-7.7 [facility] Work Phone: Neutrophils/100 WBC (Bld) 65.0 % 47-70 [facility] Work Phone: Potassium [Moles/Vol] 4.6 mmol/L 3.5-5.1 [facility] Work Phone: Protein [Mass/Vol] 7.4 g/dL 6.4-8.2 [facility] Work Phone: Sodium [Moles/Vol] 140 mmol/L 136-145 [facility] Work Phone: Testosterone [Mass/Vol] 34.24 ng/dL [facility] Work Phone: Comment on above: CENTRAL 90% REFERENC E RANGES MALE AGE <50 197.44 - 669.58 ng/dL MALE AGE > or = 50 187.72 - 684.19 ng/dL FEMALE AGE <50 8.38 - 35.01 ng/dL FEMALE AGE > or = 50 <7.00 - 35.92 ng/dL Effective as of 09/17/20 Triglyceride [Mass/Vol] 163 mg/dL <199 [facility] Work Phone: Comment on above: The drugs N-Acetylcy steine and Metamizole may falsely depress this assay.Serum Triglycerides Reference Interval Normal <150 mg/dL Borderline high 150 - 199 mg/dL High 200 - 499 mg/dL Very High > or = 500 mg/dL WBC (Bld) [#/Vol] 6.8 10*3/uL 4.4-11.0 [facility]: Blood erythrocytes count (nu mber/volume)on 10-30-2021 RBC (Bld) [#/Vol] 4.82 10*6/uL 4.6-6.2 [facility] Work Phone: Blood hemoglobin measurement (mass/volume)on 10-30-2021 Hemoglobin (Bld) [Mass/Vol] 13.7 g/dL 13.0-16.5 [facility] Work Phone: Blood lymphocytes/100 leukoc yteson 10-30-2021 Lymphocytes/100 WBC (Bld) 17.1 % 19-41 [facility] Work Phone: Blood monocytes/100 leukocyt eson 10-30-2021 Monocytes/100 WBC (Bld) 13.4 % 0-10 [facility] Work Phone: Blood platelet mean volumeon 10-30-2021 Platelet mean volume (Bld) [Entitic vol] 9.5 fL 6.2-12.0 [facility] Work Phone: Determination of erythrocyte mean corpuscular volume (MCV)on 10-30-2021 MCV (RBC) [Entitic vol] 87.6 fL 80-94 [facility] Work Phone: Hematocrit Auto (Bld) [Volum e fraction]on 10-30-2021 Hematocrit (Bld) [Volume fraction] 42.2 % 40-54 [facility] Work Phone: Laboratory - Chemistry and C hemistry - challengeon 10-30-2021 ALP [Catalytic activity/Vol] 103 U/L 45-117 [facility] Work Phone: ALT [Catalytic activity/Vol] 15 U/L 16-61 [facility] Work Phone: CO2 [Moles/Vol] 25.0 mmol/L 21.0-32.0 [facility] Work Phone: Globulin (S) [Mass/Vol] 3.9 g/dL 2.2-4.2 [facility] Work Phone: Urea nitrogen/Creatinine [Mass ratio] 23.0 mg/mg 10-20 [facility] Work Phone: Laboratory - Hematology and Cell countson 10-30-2021 Erythrocyte distribution width (RBC) [Entitic vol] 44.1 fL 35.1-43.9 [facility] Work Phone: Erythrocyte distribution width (RBC) [Ratio] 13.8 % 11.6-14.6 [facility] Work Phone: Immature granulocytes/100 WBC (Bld) 1.000 % 0.0-0.9 [facility] Work Phone: Comment on above: IG% - Immature Granu locytes (promyelocytes, myelocytes and metamyelocytes) > 1% indicates that a LEFT SHIFT is Present. MCH (RBC) [Entitic mass] 28.4 pg 27.0-32.0 [facility] Work Phone: Nucleated RBC/100 WBC (Bld) [Ratio] 0 % 0-5 [facility] Work Phone: MCHC Auto (RBC) [Mass/Vol]on 10-30-2021 MCHC (RBC) [Mass/Vol] 32.5 g/dL 32-36 [facility] Work Phone: No Panel Informationon 10-30 Estimated GFR (MDRD) Amer 80 mL/min >60 [facility] Work Phone: Comment on above: GFR Calc Estimated GFR (MDRD) Non-Af Amer 66 mL/min >60 [facility] Work Phone: Comment on above: Non- GFR Calc Thyroid Stimulating Hormone (TSH) 2.52 uIU/mL 0.358-3.74 [facility] Work Phone: Vitamin D 25-Hydroxy 71.0 ng/mL [facility] Work Phone: Comment on above: Vitamin D 25(OH) Sta tus Range Deficiency <20 ng/mL (50nmol/L) Insufficiency 20 - 30 ng/mL (50 - 75 nmol/L) Sufficiency 30 - 100 ng/mL (75 - 250 nmol/L) Toxicity >100 ng/mL (>250 nmol/L) Platelets bldon 10-30-2021 Platelets (Bld) [#/Vol] 199 10*3/uL 150-450 [facility] Work Phone: Serum or plasma albumin mt urement (mass/volume)on 10-30-2021 Albumin [Mass/Vol] 3.5 g/dL 3.2-5.0 [facility] Work Phone: Serum or plasma albumin/glob ulin mass ratioon 10-30-2021 Albumin/Globulin [Mass ratio] 0.9 {ratio} 0.9-2.4 [facility] Work Phone: Serum or plasma calcium mt urement (mass/volume)on 10-30-2021 Calcium [Mass/Vol] 9.4 mg/dL 8.5-10.1 [facility] Work Phone: Serum or plasma cholesterol in HDL measurement (mass/volume)on 10-30-2021 Cholesterol in HDL [Mass/Vol] 48 mg/dL >40 [facility] Work Phone: Comment on above: The drugs N-Acetylcy steine and Metamizole may falsely depress this assay. Reference Range HDL <40 mg/dL Low HDL Cholesterol HDL >or= 60 mg/dL High HDL Cholesterol Serum or plasma cholesterol in VLDL measurement (mass/volume)on 10-30-2021 Cholesterol in VLDL [Mass/Vol] 33 mg/dL 5-40 [facility] Work Phone: Serum or plasma creatinine m easurement (mass/volume)on 10-30-2021 Creatinine [Mass/Vol] 1.13 mg/dL 0.70-1.30 [facility] Work Phone: Comment on above: The validity of the calculated GFR & GFRAA in patients over 70 years has not been determined. Clinical correlation is essential. Serum or plasma low density lipoprotein (LDL) cholesterol measurement (mass/volume)on 10-30-2021 Cholesterol in LDL [Mass/Vol] 14 mg/dL 0-130 [facility] Work Phone: Serum or plasma urea nitroge n measurement (mass/volume)on 10-30-2021 Urea nitrogen [Mass/Vol] 26 mg/dL 7-18 [facility] Work Phone: Thin prep Papanicolaou smear with manual screeningon 10-30-2021 Thin prep Papanicolaou smear with manual screening 9 U/L 15-37 [facility] Work Phone: Thin prep Papanicolaou smear with manual screening 10 5-15 [facility] Work Phone: Whole blood hemoglobin A1c/t otal hemoglobin ratio (mass fraction)on 10-30-2021 HbA1c (Bld) [Mass fraction] 7.0 % 3.8-5.6 [facility] Work Phone: Comment on above: Normal < 5.7 % Predi abetic 5.7 - 6.4 % Diabetic >or= 6.5 % Please note range changes. Absolute lymphocyte counton 08-15-2021 Lymphocytes Auto (Unsp spec) [#/Vol] 1.20 10*3/uL 0.83-4.51 [facility] Work Phone: Basophil percentageon 2021 Basophils/100 WBC (Bld) 0.6 % 0-1 [facility] Work Phone: Bilirubin [Mass/Vol] 0.40 mg/dL 0.20-1.00 [facility] Work Phone: Comment on above: For patients on eltr ombopag therapy, use of Dimension Red Level TBIL is not recommended. Chloride [Moles/Vol] 104 mmol/L 98-107 [facility] Work Phone: Cholesterol [Mass/Vol] 105 mg/dL <200 [facility] Work Phone: Comment on above: <200 mg/dL Desirable 200-240 mg/dL Borderline >240 mg/dL High Risk Eosinophils/100 WBC (Bld) 1.5 % 0-5 [facility] Work Phone: Glucose [Mass/Vol] 140 mg/dL 74-106 [facility] Work Phone: Comment on above: Fasting Glucose resu lt greater than or equal to 126 mg/dL suggests DIABETES MELLITUS per A.D.A. criteria. Neutrophils (Bld) [#/Vol] 4.4 10*3/uL 2.0-7.7 [facility] Work Phone: Neutrophils/100 WBC (Bld) 66.8 % 47-70 [facility] Work Phone: Potassium [Moles/Vol] 4.1 mmol/L 3.5-5.1 [facility] Work Phone: Protein [Mass/Vol] 7.4 g/dL 6.4-8.2 [facility] Work Phone: Sodium [Moles/Vol] 139 mmol/L 136-145 [facility] Work Phone: Testosterone [Mass/Vol] 39.30 ng/dL [facility] Work Phone: Comment on above: CENTRAL 90% REFERENC E RANGES MALE AGE <50 197.44 - 669.58 ng/dL MALE AGE > or = 50 187.72 - 684.19 ng/dL FEMALE AGE <50 8.38 - 35.01 ng/dL FEMALE AGE > or = 50 <7.00 - 35.92 ng/dL Effective as of 09/17/20 Triglyceride [Mass/Vol] 178 mg/dL <199 [facility] Work Phone: Comment on above: The drugs N-Acetylcy steine and Metamizole may falsely depress this assay.Serum Triglycerides Reference Interval Normal <150 mg/dL Borderline high 150 - 199 mg/dL High 200 - 499 mg/dL Very High > or = 500 mg/dL WBC (Bld) [#/Vol] 6.5 10*3/uL 4.4-11.0 [facility] Work Phone: Blood erythrocytes count (nu mber/volume)on 08-15-2021 RBC (Bld) [#/Vol] 5.00 10*6/uL 4.6-6.2 [facility] Work Phone: Blood hemoglobin measurement (mass/volume)on 08-15-2021 Hemoglobin (Bld) [Mass/Vol] 14.1 g/dL 13.0-16.5 [facility] Work Phone: Blood lymphocytes/100 leukoc yteson 08-15-2021 Lymphocytes/100 WBC (Bld) 18.4 % 19-41 [facility] Work Phone: Blood monocytes/100 leukocyt eson 08-15-2021 Monocytes/100 WBC (Bld) 11.5 % 0-10 [facility] Work Phone: Blood platelet mean volumeon 08-15-2021 Platelet mean volume (Bld) [Entitic vol] 9.5 fL 6.2-12.0 [facility] Work Phone: Determination of erythrocyte mean corpuscular volume (MCV)on 08-15-2021 MCV (RBC) [Entitic vol] 86.2 fL 80-94 [facility] Work Phone: Hematocrit Auto (Bld) [Volum e fraction]on 08-15-2021 Hematocrit (Bld) [Volume fraction] 43.1 % 40-54 [facility] Work Phone: Laboratory - Chemistry and C hemistry - challengeon 08-15-2021 ALP [Catalytic activity/Vol] 91 U/L 45-117 [facility] Work Phone: ALT [Catalytic activity/Vol] 12 U/L 16-61 [facility] Work Phone: CO2 [Moles/Vol] 26.0 mmol/L 21.0-32.0 [facility] Work Phone: Globulin (S) [Mass/Vol] 3.7 g/dL 2.2-4.2 [facility] Work Phone: Urea nitrogen/Creatinine [Mass ratio] 22.9 mg/mg 10-20 [facility] Work Phone: Laboratory - Hematology and Cell countson 08-15-2021 Erythrocyte distribution width (RBC) [Entitic vol] 44.4 fL 35.1-43.9 [facility] Work Phone: Erythrocyte distribution width (RBC) [Ratio] 14.3 % 11.6-14.6 [facility] Work Phone: Immature granulocytes/100 WBC (Bld) 1.200 % 0.0-0.9 [facility] Work Phone: Comment on above: IG% - Immature Granu locytes (promyelocytes, myelocytes and metamyelocytes) > 1% indicates that a LEFT SHIFT is Present. MCH (RBC) [Entitic mass] 28.2 pg 27.0-32.0 [facility] Work Phone: Nucleated RBC/100 WBC (Bld) [Ratio] 0 % 0-5 [facility] Work Phone: MCHC Auto (RBC) [Mass/Vol]on 08-15-2021 MCHC (RBC) [Mass/Vol] 32.7 g/dL 32-36 [facility] Work Phone: No Panel Informationon 08-15 Estimated GFR (MDRD) Amer 77 mL/min >60 [facility] Work Phone: Comment on above: GFR Calc Estimated GFR (MDRD) Non-Af Amer 63 mL/min >60 [facility] Work Phone: Comment on above: Non- GFR Calc Thyroid Stimulating Hormone (TSH) 2.38 uIU/mL 0.358-3.74 [facility] Work Phone: Vitamin D 25-Hydroxy 45.4 ng/mL [facility] Work Phone: Comment on above: Vitamin D 25(OH) Sta tus Range Deficiency <20 ng/mL (50nmol/L) Insufficiency 20 - 30 ng/mL (50 - 75 nmol/L) Sufficiency 30 - 100 ng/mL (75 - 250 nmol/L) Toxicity >100 ng/mL (>250 nmol/L) Platelets bldon 08-15-2021 Platelets (Bld) [#/Vol] 205 10*3/uL 150-450 [facility] Work Phone: Serum or plasma albumin mt urement (mass/volume)on 08-15-2021 Albumin [Mass/Vol] 3.7 g/dL 3.2-5.0 [facility] Work Phone: Serum or plasma albumin/glob ulin mass ratioon 08-15-2021 Albumin/Globulin [Mass ratio] 1.0 {ratio} 0.9-2.4 [facility] Work Phone: Serum or plasma calcium mt urement (mass/volume)on 08-15-2021 Calcium [Mass/Vol] 9.4 mg/dL 8.5-10.1 [facility] Work Phone: Serum or plasma cholesterol in HDL measurement (mass/volume)on 08-15-2021 Cholesterol in HDL [Mass/Vol] 44 mg/dL >40 [facility] Work Phone: Comment on above: The drugs N-Acetylcy steine and Metamizole may falsely depress this assay. Reference Range HDL <40 mg/dL Low HDL Cholesterol HDL >or= 60 mg/dL High HDL Cholesterol Serum or plasma cholesterol in VLDL measurement (mass/volume)on 08-15-2021 Cholesterol in VLDL [Mass/Vol] 36 mg/dL 5-40 [facility] Work Phone: Serum or plasma creatinine m easurement (mass/volume)on 08-15-2021 Creatinine [Mass/Vol] 1.18 mg/dL 0.70-1.30 [facility] Work Phone: Comment on above: The validity of the calculated GFR & GFRAA in patients over 70 years has not been determined. Clinical correlation is essential. Serum or plasma low density lipoprotein (LDL) cholesterol measurement (mass/volume)on 08-15-2021 Cholesterol in LDL [Mass/Vol] 25 mg/dL 0-130 [facility] Work Phone: Serum or plasma urea nitroge n measurement (mass/volume)on 08-15-2021 Urea nitrogen [Mass/Vol] 27 mg/dL 7-18 [facility] Work Phone: Thin prep Papanicolaou smear with manual screeningon 08-15-2021 Thin prep Papanicolaou smear with manual screening 15 U/L 15-37 [facility] Work Phone: Thin prep Papanicolaou smear with manual screening 9 5-15 [facility] Work Phone: Whole blood hemoglobin A1c/t otal hemoglobin ratio (mass fraction)on 08-15-2021 HbA1c (Bld) [Mass fraction] 7.2 % 3.8-5.6 [facility] Work Phone: Comment on above: Normal < 5.7 % Predi abetic 5.7 - 6.4 % Diabetic >or= 6.5 % Please note range changes. Basophil percentageon 2021 Chloride [Moles/Vol] 106 mmol/L 98-107 [facility] Work Phone: Glucose [Mass/Vol] 231 mg/dL 74-106 [facility] Work Phone: Comment on above: Glucose result great er than or equal to 200 mg/dLsuggests DIABETES MELLITUS per A.D.A. criteria. Potassium [Moles/Vol] 4.2 mmol/L 3.5-5.1 [facility] Work Phone: Sodium [Moles/Vol] 140 mmol/L 136-145 [facility] Work Phone: Testosterone [Mass/Vol] 40.82 ng/dL [facility] Work Phone: Comment on above: CENTRAL 90% REFERENC E RANGES MALE AGE <50 197.44 - 669.58 ng/dL MALE AGE > or = 50 187.72 - 684.19 ng/dL FEMALE AGE <50 8.38 - 35.01 ng/dL FEMALE AGE > or = 50 <7.00 - 35.92 ng/dL Effective as of 09/17/20 Laboratory - Chemistry and C hemistry - challengeon 07-11-2021 CO2 [Moles/Vol] 27.0 mmol/L 21.0-32.0 [facility] Work Phone: Urea nitrogen/Creatinine [Mass ratio] 22.7 mg/mg 12-11 [facility] Work Phone: No Panel Informationon 07-11 Estimated GFR (MDRD) Amer 83 mL/min >60 [facility] Work Phone: Comment on above: GFR Calc Estimated GFR (MDRD) Non-Af Amer 69 mL/min >60 [facility] Work Phone: Comment on above: Non- GFR Calc Prostate Specific Antigen Total < 0.01 ng/mL 0.0-4.0 [facility] Work Phone: Comment on above: This test was perfor med using the TPSA assay method [facility]. Values obtained with differentassay methods cannot be used interchangably.When changing PSA assays in the course of monitoring apatient, additional sequential testing should be carriedout to confirm baseline values. Serum or plasma calcium mt urement (mass/volume)on 07-11-2021 Calcium [Mass/Vol] 9.1 mg/dL 8.5-10.1 [facility] Work Phone: Serum or plasma creatinine m easurement (mass/volume)on 07-11-2021 Creatinine [Mass/Vol] 1.10 mg/dL 0.70-1.30 [facility] Work Phone: Comment on above: The validity of the calculated GFR & GFRAA in patients over 70 years has not been determined. Clinical correlation is essential. Serum or plasma urea nitroge n measurement (mass/volume)on 07-11-2021 Urea nitrogen [Mass/Vol] 25 mg/dL 09-08 [facility] Work Phone: Thin prep Papanicolaou smear with manual screeningon 07-11-2021 Thin prep Papanicolaou smear with manual screening 7 07-06 [facility] Work Phone: CNOVon 05-29-2021 CNOV Office Visit ([facility] ) FARHANA THRASHER ([id number]) 1940 M Date Time Provider Department 05/29/21 9:45 AM YOSELIN KHAN [facility] During your visit today, we recorded the following information about you: Temperature Pulse Respiration Blood pressure 97.8 degrees 59/minute 18/minute 136/74 Weight 91.4 kg Yoselin Khan APRN.ROCK WORKER 05/29/2021 10:25 AM Signed Subjective Patient came in because he was exposed to covid a week ago and has no symptoms at this time. The history is provided by the patient. No contracts specialist was used. Review of Systems Constitutional: Negative. [...] as directed) blood sugar diagnostic (ACCU-CHEK CLARITZA) [facility] test strip CHECK BLOOD SUGARS 3-4 TIMES [...] ICD10: Z20.822 - COVID WITH FLUA+B, ROUTINE Yoselin Khan APRN.ROCK WORKER Referring Provider: SELF [200] Allergies As of Date: 05/29/2021 Noted Allergy Reaction ADHESIVE TAPE-SILICONES 05/23/2021 2 - Rash Date Reviewed: 05/29/2021 Reviewed by: Urszula Lowry LPN - Fully Assessed Reason for Visit: COVID exposure [Other] Cmt: COVID exposure Primary Visit Diagnosis:Close exposure to COVID-19 virus [Z20.822] Order(s):COVID WITH FLUA+B, ROUTINE [SQCOVFLU] Order #: [id number] FUTURE COVID WITH FLUA+B, ROUTINE [SQCOVFLU] Order #: [id number]. #:[id number] Prescriptions as of 05/29/2021 - insulin needles, DISPOSABLE, (PEN NEEDLE) 31 X 07/07 Ndle Use as directed. - glimepiride 4 mg tablet Take by mouth 1/2 tab daily - metFORMIN ER 500 mg 24 hr tablet Take by mouth two tablets every moning - omega-3 acid ethyl esters (LOVAZA) 1 gram capsule Take 2 capsules by mouth twice daily. - exenatide (BYETTA) 10 mcg/0.04 mL PnIj Inject twice daily before meals - Alcohol Swabs PadM use as directed - niacin sustained release 500 mg tablet Take 500 mg by mouth twice daily with meals. - tamsulosin 0.4 mg Cp24 Take 0.4 mg by mouth. - Hydrochlorothiazide 12.5 mg ORAL capsule Take 1 capsule by mouth once daily. - lisinopril (ZESTRIL) 40 mg ORAL tablet Take 1 tablet by mouth once daily. - insulin glargine (LANTUS SOLOSTAR) 100 unit/mL (3 mL) SUBCUTANEOUS InPn Inject subcutaneously. 40 units at bedtime (may be more, as directed) - blood sugar diagnostic (ACCU-CHEK CLARITZA) [facility] test strip CHECK BLOOD SUGARS 3-4 TIMES DAILY - calcium carbonate 600 mg-cholecalciferol 200 units (CALCIUM 600 + D,3,) 600 mg(1,500mg) -200 unit ORAL Tab (more content not included)... Normal [facility] CNOVon 05-23-2021 CNOV Office Visit (UCWSTR ) FARHANA THRASHER ([id number]) 1940 M Date Time Provider Department 05/23/21 11:30 AM ALIX VALLE [facility] During your visit today, we recorded the following information about you: Temperature Pulse Respiration Blood pressure 97.5 degrees 67/minute 18/minute 118/68 Weight 93.4 kg Alix Valle APRN.CNP 05/23/2021 3:33 PM Signed This note was created using NullPointer. Subjective Farhana Thrsaher is a 81 year old male who [...] Negative. Allergic/Immunologic: Negative. Neurological: Negative. Hematological: Negative. Psychiatric/Behaviora l: Negative. Objective BP 118/68 Pulse 67 Temp [...] as directed) blood sugar diagnostic (ACCU-CHEK CLARITZA) [facility] test strip CHECK BLOOD SUGARS 3-4 TIMES [...] ASYMPTOMATIC ELECTIVE COVID-19 Sadiq Massey TEACHING PROVIDER (Physician/PA/FURNACE CHARGER) NOTE OF PERSONAL INVOLVEMENT IN CARE: I have personally seen and examined the patient and performed the medical decision-making components. I have reviewed the Advanced Practice Registered Nurse (FURNACE CHARGER) Student's documentation and verified the findings in the note as written. Any additions or changes are noted in everton (more content not included)... Normal [facility] SARS-CoV-2 RNA Resp Ql BRIAN+p robeon 05-23-2021 SARS-CoV-2 (COVID-19) RNA BRIAN+probe Ql (Resp) COVID 19 RESULT: SARS-CoV-2 (Agent of COVID-19) Not Detected by RT-PCR or equivalent method. This test was developed and its performance characteristics determined by [facility] [place]. This test has been authorized by FDA under an Emergency Use Authorization (EUA). This test has been validated in accordance with the FDA's Guidance Document Policy for Diagnostics Testing in Laboratories Certified to Perform High Complexity Testing under CLIA prior to Emergency use Authorization for Coronavirus Disease 2019 during the Public Health Emergency issued on April 22, 2019. Test performed by [facility], [facility] [place], [address] [place] [address]. Normal [facility] Comment on above: Performed By: #### [id number] #### [facility] CLIA [id number] [address] [place] [address] [place] Absolute lymphocyte counton 05-12-2021 Lymphocytes Auto (Unsp spec) [#/Vol] 1.26 10*3/uL 0.83-4.51 [facility] Work Phone: Basophil percentageon 2021 Basophils/100 WBC (Bld) 0.5 % 0-1 [facility] Work Phone: Bilirubin [Mass/Vol] 0.40 mg/dL 0.20-1.00 [facility] Work Phone: Comment on above: For patients on eltr ombopag therapy, use of Dimension Red Level TBIL is not recommended. Chloride [Moles/Vol] 106 mmol/L 98-[address] [facility] Work Phone: [phone] Cholesterol [Mass/Vol] 113 mg/dL <200 [facility] Work Phone: [phone] Comment on above: <200 mg/dL Desirable 200-240 mg/dL Borderline >240 mg/dL High Risk Eosinophils/100 WBC (Bld) 1.1 % 0-5 [facility] Work Phone: Glucose [Mass/Vol] 139 mg/dL 74-106 [facility] Work Phone: Comment on above: Fasting Glucose resu lt greater than or equal to 126 mg/dL suggests DIABETES MELLITUS per A.D.A. criteria. Neutrophils (Bld) [#/Vol] 5.0 10*3/uL 2.0-7.7 [facility] Work Phone: Neutrophils/100 WBC (Bld) 67.8 % 47-70 [facility] Work Phone: Potassium [Moles/Vol] 4.5 mmol/L 3.5-5.1 [facility] Work Phone: Protein [Mass/Vol] 6.8 g/dL 6.4-8.2 [facility] Work Phone: [phone] Sodium [Moles/Vol] 138 mmol/L 136-145 [facility] Work Phone: [phone] Testosterone [Mass/Vol] 222.68 ng/dL [facility] Work Phone: [phone] Comment on above: CENTRAL 90% REFERENC E RANGES MALE AGE <50 197.44 - 669.58 ng/dL MALE AGE > or = 50 187.72 - 684.19 ng/dL FEMALE AGE <50 8.38 - 35.01 ng/dL FEMALE AGE > or = 50 <7.00 - 35.92 ng/dL Effective as of 09/17/20 Triglyceride [Mass/Vol] 277 mg/dL <199 [facility] Work Phone: Comment on above: The drugs N-Acetylcy steine and Metamizole may falsely depress this assay.Serum Triglycerides Reference Interval Normal <150 mg/dL Borderline high 150 - 199 mg/dL High 200 - 499 mg/dL Very High > or = 500 mg/dL WBC (Bld) [#/Vol] 7.3 10*3/uL 4.4-11.0 [facility] Work Phone: Blood erythrocytes count (nu mber/volume)on 05-12-2021 RBC (Bld) [#/Vol] 4.61 10*6/uL 4.6-6.2 [facility] Work Phone: Blood hemoglobin measurement (mass/volume)on 05-12-2021 Hemoglobin (Bld) [Mass/Vol] 13.3 g/dL 13.0-16.5 [facility] Work Phone: Blood lymphocytes/100 leukoc yteson 05-12-2021 Lymphocytes/100 WBC (Bld) 17.2 % 19-41 [facility] Work Phone: Blood monocytes/100 leukocyt eson 05-12-2021 Monocytes/100 WBC (Bld) 12.4 % 0-10 [facility] Work Phone: Blood platelet mean volumeon 05-12-2021 Platelet mean volume (Bld) [Entitic vol] 9.4 fL 6.2-12.0 [facility] Work Phone: Determination of erythrocyte mean corpuscular volume (MCV)on 05-12-2021 MCV (RBC) [Entitic vol] 87.6 fL 80-94 [facility] Work Phone: Hematocrit Auto (Bld) [Volum e fraction]on 05-12-2021 Hematocrit (Bld) [Volume fraction] 40.4 % 40-54 [facility] Work Phone: Laboratory - Chemistry and C hemistry - challengeon 05-12-2021 ALP [Catalytic activity/Vol] 78 U/L 45-117 [facility] Work Phone: ALT [Catalytic activity/Vol] 9 U/L 16-61 [facility] Work Phone: CO2 [Moles/Vol] 26.0 mmol/L 21.0-32.0 [facility] Work Phone: Globulin (S) [Mass/Vol] 3.3 g/dL 2.2-4.2 [facility] Work Phone: Urea nitrogen/Creatinine [Mass ratio] 19.0 mg/mg 10-20 [facility] Work Phone: Laboratory - Hematology and Cell countson 05-12-2021 Erythrocyte distribution width (RBC) [Entitic vol] 43.7 fL 35.1-43.9 [facility] Work Phone: Erythrocyte distribution width (RBC) [Ratio] 13.8 % 11.6-14.6 [facility] Work Phone: Immature granulocytes/100 WBC (Bld) 1.000 % 0.0-0.9 [facility] Work Phone: Comment on above: IG% - Immature Granu locytes (promyelocytes, myelocytes and metamyelocytes) > 1% indicates that a LEFT SHIFT is Present. MCH (RBC) [Entitic mass] 28.9 pg 27.0-32.0 [facility] Work Phone: Nucleated RBC/100 WBC (Bld) [Ratio] 0 % 0-5 [facility] Work Phone: MCHC Auto (RBC) [Mass/Vol]on 05-12-2021 MCHC (RBC) [Mass/Vol] 32.9 g/dL 32-36 [facility]: No Panel Informationon 05-12 Estimated GFR (MDRD) Amer 74 mL/min >60 [facility] Work Phone: Comment on above: GFR Calc Estimated GFR (MDRD) Non-Af Amer 62 mL/min >60 [facility] Work Phone: Comment on above: Non- GFR Calc Thyroid Stimulating Hormone (TSH) 2.16 uIU/mL 0.358-3.74 [facility] Work Phone: Vitamin D 25-Hydroxy 41.9 ng/mL [facility] Work Phone: Comment on above: Vitamin D 25(OH) Sta tus Range Deficiency <20 ng/mL (50nmol/L) Insufficiency 20 - 30 ng/mL (50 - 75 nmol/L) Sufficiency 30 - 100 ng/mL (75 - 250 nmol/L) Toxicity >100 ng/mL (>250 nmol/L) Platelets bldon 05-12-2021 Platelets (Bld) [#/Vol] 213 10*3/uL 150-450 [facility] Work Phone: Serum or plasma albumin mt urement (mass/volume)on 05-12-2021 Albumin [Mass/Vol] 3.5 g/dL 3.2-5.0 [facility] Work Phone: Serum or plasma albumin/glob ulin mass ratioon 05-12-2021 Albumin/Globulin [Mass ratio] 1.1 {ratio} 0.9-2.4 [facility] Work Phone: Serum or plasma calcium mt urement (mass/volume)on 05-12-2021 Calcium [Mass/Vol] 9.2 mg/dL 8.5-10.1 [facility] Work Phone: Serum or plasma cholesterol in HDL measurement (mass/volume)on 05-12-2021 Cholesterol in HDL [Mass/Vol] 39 mg/dL >40 [facility] Work Phone: Comment on above: The drugs N-Acetylcy steine and Metamizole may falsely depress this assay. Reference Range HDL <40 mg/dL Low HDL Cholesterol HDL >or= 60 mg/dL High HDL Cholesterol Serum or plasma cholesterol in VLDL measurement (mass/volume)on 05-12-2021 Cholesterol in VLDL [Mass/Vol] 55 mg/dL 5-40 [facility] Work Phone: Serum or plasma creatinine m easurement (mass/volume)on 05-12-2021 Creatinine [Mass/Vol] 1.21 mg/dL 0.70-1.30 [facility] Work Phone: Comment on above: The validity of the calculated GFR & GFRAA in patients over 70 years has not been determined. Clinical correlation is essential. Serum or plasma low density lipoprotein (LDL) cholesterol measurement (mass/volume)on 05-12-2021 Cholesterol in LDL [Mass/Vol] 19 mg/dL 0-130 [facility] Work Phone: Serum or plasma urea nitroge n measurement (mass/volume)on 05-12-2021 Urea nitrogen [Mass/Vol] 23 mg/dL 7-18 [facility] Work Phone: Thin prep Papanicolaou smear with manual screeningon 05-12-2021 Thin prep Papanicolaou smear with manual screening 13 U/L 15-37 [facility] Work Phone: Thin prep Papanicolaou smear with manual screening 6 5-15 [facility] Work Phone: Whole blood hemoglobin A1c/t otal hemoglobin ratio (mass fraction)on 05-12-2021 HbA1c (Bld) [Mass fraction] 7.4 % 3.8-5.6 [facility] Work Phone: Comment on above: Normal < 5.7 % Predi abetic 5.7 - 6.4 % Diabetic >or= 6.5 % Please note range changes. Basophil percentageon 2021 Testosterone [Mass/Vol] 42.20 ng/dL [facility] Work Phone: Comment on above: CENTRAL 90% REFERENC E RANGES MALE AGE <50 197.44 - 669.58 ng/dL MALE AGE > or = 50 187.72 - 684.19 ng/dL FEMALE AGE <50 8.38 - 35.01 ng/dL FEMALE AGE > or = 50 <7.00 - 35.92 ng/dL Effective as of 09/17/20 No Panel Informationon 04-04 Prostate Specific Antigen Total < 0.01 ng/mL 0.0-4.0 [facility] Work Phone: Comment on above: This test was perfor med using the TPSA assay method for [email or web address] chemistry system. Values obtained with differentassay methods cannot be used interchangably.When changing PSA assays in the course of monitoring apatient, additional sequential testing should be carriedout to confirm baseline values. Absolute lymphocyte counton 02-11-2021 Lymphocytes Auto (Unsp spec) [#/Vol] 1.21 10*3/uL 0.83-4.51 [facility] Work Phone: Basophil percentageon 2020 Bilirubin [Mass/Vol] 0.50 mg/dL 0.20-1.00 [facility] Work Phone: Comment on above: For patients on eltr ombopag therapy, use of Dimension Red Level TBIL is not recommended. Chloride [Moles/Vol] 101 mmol/L 98-107 [facility] Work Phone: Cholesterol [Mass/Vol] 107 mg/dL <200 [facility] Work Phone: Comment on above: <200 mg/dL Desirable 200-240 mg/dL Borderline >240 mg/dL High Risk Eosinophils/100 WBC (Bld) 1.5 % 0-5 [facility] Work Phone: Glucose [Mass/Vol] 109 mg/dL 74-106 [facility] Work Phone: Comment on above: Fasting Glucose resu lt from 100 to 125 mg/dL suggests IMPAIRED HOMEOSTASIS per A.D.A. criteria.Please note revised GLUCOSE reference range effective 2017. Neutrophils (Bld) [#/Vol] 3.8 10*3/uL 2.0-7.7 [facility] Work Phone: Potassium [Moles/Vol] 4.5 mmol/L 3.5-5.1 [facility] Work Phone: Protein [Mass/Vol] 7.2 g/dL 6.4-8.2 [facility] Work Phone: Sodium [Moles/Vol] 140 mmol/L 136-145 [facility] Work Phone: Testosterone [Mass/Vol] 71.79 ng/dL [facility] Work Phone: Comment on above: CENTRAL 90% REFERENC E RANGES MALE AGE <50 197.44 - 669.58 ng/dL MALE AGE > or = 50 187.72 - 684.19 ng/dL FEMALE AGE <50 8.38 - 35.01 ng/dL FEMALE AGE > or = 50 <7.00 - 35.92 ng/dL Effective as of 09/17/20 Triglyceride [Mass/Vol] 168 mg/dL [facility] Work Phone: Comment on above: The drugs N-Acetylcy steine and Metamizole may falsely depress this assay.Serum Triglycerides Reference Interval Normal <150 mg/dL Borderline high 150 - 199 mg/dL High 200 - 499 mg/dL Very High > or = 500 mg/dL WBC (Bld) [#/Vol] 5.9 10*3/uL 4.4-11.0 [facility] Work Phone: Blood erythrocytes count (nu mber/volume)on 02-11-2021 RBC (Bld) [#/Vol] 5.45 10*6/uL 4.6-6.2 [facility] Work Phone: Blood hemoglobin measurement (mass/volume)on 02-11-2021 Hemoglobin (Bld) [Mass/Vol] 14.2 g/dL 13.0-16.5 [facility] Work Phone: Blood lymphocytes/100 leukoc yteson 02-11-2021 Lymphocytes/100 WBC (Bld) 20.6 % 19-41 [facility] Work Phone: Blood manual differential co mment interpretation (narrative result)on 02-11-2021 Manual differential comment Jones (Bld) [Interp] SCANNED [facility] Work Phone: Blood monocytes/100 leukocyt eson 02-11-2021 Monocytes/100 WBC (Bld) 11.6 % 0-10 [facility] Work Phone: Blood platelet mean volumeon 02-11-2021 Platelet mean volume (Bld) [Entitic vol] 8.8 fL 6.2-12.0 [facility] Work Phone: Determination of erythrocyte mean corpuscular volume (MCV)on 02-11-2021 MCV (RBC) [Entitic vol] 80.0 fL 80-94 [facility] Work Phone: Hematocrit Auto (Bld) [Volum e fraction]on 02-11-2021 Hematocrit (Bld) [Volume fraction] 43.6 % 40-54 [facility] Work Phone: Laboratory - Chemistry and C hemistry - challengeon 02-11-2021 ALP [Catalytic activity/Vol] 83 U/L 45-117 [facility] Work Phone: ALT [Catalytic activity/Vol] 18 U/L 16-61 [facility] Work Phone: CO2 [Moles/Vol] 31.0 mmol/L 21.0-32.0 [facility] Work Phone: Globulin (S) [Mass/Vol] 3.7 g/dL 2.2-4.2 [facility] Work Phone: Urea nitrogen/Creatinine [Mass ratio] 21.1 mg/mg 10-20 [facility] Work Phone: Laboratory - Hematology and Cell countson 02-11-2021 Anisocytosis Ql (Bld) 1+ [facility] Work Phone: Basophils/100 WBC (Unsp spec) 1.0 % 0-1 [facility] Work Phone: Erythrocyte distribution width (RBC) [Entitic vol] 58.9 fL 35.1-43.9 [facility] Work Phone: Erythrocyte distribution width (RBC) [Ratio] 20.7 % 11.6-14.6 [facility] Work Phone: Immature granulocytes/100 WBC (Bld) 0.900 % 0.0-0.9 [facility] Work Phone: Comment on above: IG% - Immature Granu locytes (promyelocytes, myelocytes and metamyelocytes) > 1% indicates that a LEFT SHIFT is Present. MCH (RBC) [Entitic mass] 26.1 pg 27.0-32.0 [facility] Work Phone: Neutrophils/100 WBC (Bld) 64.4 % 47-70 [facility] Work Phone: Nucleated RBC/100 WBC (Bld) [Ratio] 0 % 0-5 [facility] Work Phone: MCHC Auto (RBC) [Mass/Vol]on 02-11-2021 MCHC (RBC) [Mass/Vol] 32.6 g/dL 32-36 [facility] Work Phone: No Panel Informationon 02-11 Estimated GFR (MDRD) Amer 84 mL/min >60 [facility] Work Phone: Comment on above: GFR Calc Estimated GFR (MDRD) Non-Af Amer 69 mL/min >60 [facility] Work Phone: Comment on above: Non- GFR Calc Thyroid Stimulating Hormone (TSH) 2.30 uIU/mL 0.358-3.74 [facility] Work Phone: Vitamin D 25-Hydroxy 49.2 ng/mL [facility] Work Phone: Comment on above: Vitamin D 25(OH) Sta tus Range Deficiency <20 ng/mL (50nmol/L) Insufficiency 20 - 30 ng/mL (50 - 75 nmol/L) Sufficiency 30 - 100 ng/mL (75 - 250 nmol/L) Toxicity >100 ng/mL (>250 nmol/L) Platelets bldon 02-11-2021 Platelets (Bld) [#/Vol] 185 10*3/uL 150-450 [facility] Work Phone: Serum or plasma albumin mt urement (mass/volume)on 02-11-2021 Albumin [Mass/Vol] 3.5 g/dL 3.2-5.0 [facility] Work Phone: Serum or plasma albumin/glob ulin mass ratioon 02-11-2021 Albumin/Globulin [Mass ratio] 0.9 {ratio} 0.9-2.4 [facility] Work Phone: Serum or plasma calcium mt urement (mass/volume)on 02-11-2021 Calcium [Mass/Vol] 9.4 mg/dL 8.5-10.1 [facility] Work Phone: Serum or plasma cholesterol in HDL measurement (mass/volume)on 02-11-2021 Cholesterol in HDL [Mass/Vol] 49 mg/dL [facility] Work Phone: Comment on above: The drugs N-Acetylcy steine and Metamizole may falsely depress this assay. Reference Range HDL <40 mg/dL Low HDL Cholesterol HDL >or= 60 mg/dL High HDL Cholesterol Serum or plasma cholesterol in VLDL measurement (mass/volume)on 02-11-2021 Cholesterol in VLDL [Mass/Vol] 34 mg/dL 5-40 [facility] Work Phone: Serum or plasma creatinine m easurement (mass/volume)on 02-11-2021 Creatinine [Mass/Vol] 1.09 mg/dL 0.70-1.30 [facility] Work Phone: Comment on above: The validity of the calculated GFR & GFRAA in patients over 70 years has not been determined. Clinical correlation is essential. Serum or plasma low density lipoprotein (LDL) cholesterol measurement (mass/volume)on 02-11-2021 Cholesterol in LDL [Mass/Vol] 24 mg/dL 0-130 [facility] Work Phone: Serum or plasma urea nitroge n measurement (mass/volume)on 02-11-2021 Urea nitrogen [Mass/Vol] 23 mg/dL 7-18 [facility] Work Phone: Thin prep Papanicolaou smear with manual screeningon 02-11-2021 Thin prep Papanicolaou smear with manual screening 13 U/L 15-37 [facility] Work Phone: Thin prep Papanicolaou smear with manual screening 8 5-15 [facility] Work Phone: Whole blood hemoglobin A1c/t otal hemoglobin ratio (mass fraction)on 02-11-2021 HbA1c (Bld) [Mass fraction] 7.0 % 3.8-5.6 [facility] Work Phone: Comment on above: Normal < 5.7 % Predi abetic 5.7 - 6.4 % Diabetic >or= 6.5 % Please note range changes. Chart Maintenanceon 01-29-20 17 HbA1c (Bld) [Mass fraction] 7.2 % Invalid Interpretation Code [employer] Work Phone: Office Visiton 12-21-2016 Tobacco smoking status Tobacco smoking status NHIS Invalid Interpretation Code [employer] Work Phone: Tobacco use status [facility] Former smoker Invalid Interpretation Code [employer] Work Phone: Clinical Lists Update: Prelo interventional radiologist 12-18-2016 Left ventricular Ejection fraction 60 % Invalid Interpretation Code [employer] Work Phone: Chart Maintenanceon 07-31-19 17 HbA1c (Bld) [Mass fraction] 7.9 % Invalid Interpretation Code [employer] Work Phone: Office Visit: Consult- Typw 2 diabeteson 05-14-2016 Adolescent depression screening assessment Adolescent depression screening assessment Invalid Interpretation Code [employer] Work Phone: Adult depression screening assessment Adult depression screening assessment Invalid Interpretation Code [employer] Work Phone: Dietary management education, guidance, and counseling (procedure) yes Invalid Interpretation Code [employer] Work Phone: Documentation of current medications (procedure) Done Invalid Interpretation Code [employer] Work Phone: Fall risk assessment No Invalid Interpretation Code [employer] Work Phone: Tobacco smoking status Former Invalid Interpretation Code [employer] Work Phone: Tobacco use status [facility] Former smoker Invalid Interpretation Code [employer] Work Phone: Clinical Lists Update: Prelo interventional radiologist 01-21-2016 Left ventricular Ejection fraction 60 % Invalid Interpretation Code [employer] Work Phone: Replaced Document: Shamika Eason CG Observationson 12-20-2015 EKG QRS axis -34 deg Invalid Interpretation Code [employer] Work Phone: electrocardiogram interpretation Atrial Bradycardia P:QRS - 1:1, Abnormal P axis, H Rate 53 -Left axis -anterior fascicular block. ABNORMAL Invalid Interpretation Code [employer] Work Phone: GE use only - for [employer] import when terms are not otherwise specified 396 ms Invalid Interpretation Code [employer] Work Phone: Heart rate 53 /min Invalid Interpretation Code [employer] Work Phone: Interpretation Atrial Bradycardia P:QRS - 1:1, Abnormal P axis, H Rate 53-Left axis -anterior fascicular block. ABNORMAL Invalid Interpretation Code [employer] Work Phone: P Craig -47 deg Invalid Interpretation Code [employer] Work Phone: [phone] P wave axis, electrocardiogram -47 deg Invalid Interpretation Code [employer] Work Phone: NE Interval 158 ms Invalid Interpretation Code [employer] Work Phone: [phone] NE interval, electrocardiogram 158 ms Invalid Interpretation Code [employer] Work Phone: QRS axis, electrocardiogram -34 deg Invalid Interpretation Code [employer] Work Phone: QRS Duration 112 ms Invalid Interpretation Code [employer] Work Phone: QRS duration, electrocardiogram 112 ms Invalid Interpretation Code [employer] Work Phone: QT Interval new path ms Invalid Interpretation Code [facility] Work Phone: QT interval, electrocardiogram new path ms Invalid Interpretation Code [employer] [facility] Work Phone: QTc [place] 396 ms Invalid Interpretation Code [facility] Work Phone: [phone] T Craig -1 deg Invalid Interpretation Code [facility] Work Phone: [phone] T wave axis, electrocardiogram -1 deg Invalid Interpretation Code [employer] [facility] Work Phone: Clinical Lists Update: Prelo interventional radiologist 10-02-2015 Albumin [Mass/Vol] 3.3 g/dL Low [facility] [employer] [facility] Work Phone: Alkaline phosphatase (ALP) 84 U/L Invalid Interpretation Code [facility] Work Phone: ALP (Bld) [Catalytic activity/Vol] 84 U/L Invalid Interpretation Code [employer] [employer] [facility] Work Phone: ALT [Catalytic activity/Vol] 25 U/L Invalid Interpretation Code [employer] [facility] Work Phone: Anion gap 8 mmol/L Invalid Interpretation Code [place] [employer] [facility] Work Phone: Anion gap [Moles/Vol] 8 mmol/L Invalid Interpretation Code [employer] [facility] Work Phone: AST [Catalytic activity/Vol] 22 U/L Invalid Interpretation Code [employer] [employer] [facility] Work Phone: Bilirubin [Mass/Vol] 0.30 mg/dL Invalid Interpretation Code [employer] [facility] Work Phone: Calcium [Mass/Vol] 8.4 mg/dL Low [facility] [employer] [facility] Work Phone: Chloride [Moles/Vol] 103 mmol/L Invalid Interpretation Code [place] [employer] [facility] Work Phone: Cholesterol [Mass/Vol] 99 mg/dL Invalid Interpretation Code [place] [employer] [facility] Work Phone: Cholesterol in HDL [Mass/Vol] 34 mg/dL Low [employer] [employer] [facility] Work Phone: Cholesterol in LDL [Mass/Vol] -12 mg/dL Low [facility] Work Phone: CO2 26.0 mmol/L Invalid Interpretation Code [facility] Work Phone: [phone] CO2 (BldV) [Partial pressure] 26.0 mmol/L Invalid Interpretation Code [facility] Work Phone: Creatinine [Mass/Vol] 1.24 mg/dL Invalid Interpretation Code [facility] Work Phone: Erythrocyte distribution width (RBC) [Ratio] 13.6 % Invalid Interpretation Code [facility] Work Phone: Erythrocyte distribution width Auto Ratio (RBC) 13.6 % Invalid Interpretation Code [facility] Work Phone: [phone] Erythrocytes (RBC) 4.26 10*6/uL Low [facility] Work Phone: [phone] Globulin 3.4 g/dL Invalid Interpretation Code [facility] Work Phone: [phone] globulin, serum 3.4 Invalid Interpretation Code [facility] Work Phone: Glucose [Mass/Vol] 164 mg/dL High [facility] Work Phone: Hematocrit (Bld) [Volume fraction] 37.1 % Low [facility] Work Phone: Hematocrit (HCT) 37.1 % Low [facility] Work Phone: [phone] Hemoglobin (Bld) [Mass/Vol] 12.4 g/dL Low [facility] Work Phone: Lipoprotein.pre-beta [Mass/Vol] 77 mg/dL High [facility] Work Phone: MCH 29.1 pg Invalid Interpretation Code [facility] Work Phone: [phone] MCH (RBC) [Entitic mass] 29.1 pg Invalid Interpretation Code [facility] Work Phone: MCHC (RBC) [Mass/Vol] 33.4 g/dL Invalid Interpretation Code [facility] Work Phone: MCHC mass conc (RBC) 33.4 g/dL Invalid Interpretation Code [facility] Work Phone: [phone] MCV 87.1 fL Invalid Interpretation Code [facility] Work Phone: [phone] MCV (RBC) [Entitic vol] 87.1 fL Invalid Interpretation Code [facility] Work Phone: Platelet mean volume (Bld) [Entitic vol] 10.3 fL Invalid Interpretation Code [facility] Work Phone: Platelets 179 10*3/mm3 Invalid Interpretation Code [facility] Work Phone: [phone] Platelets (Bld) [#/Vol] 179 10*3/uL Invalid Interpretation Code [facility] Work Phone: PMV by Johnathan 10.3 fL Invalid Interpretation Code [facility] Work Phone: [phone] Potassium [Moles/Vol] 4.5 mmol/L Invalid Interpretation Code [facility] Work Phone: Protein [Mass/Vol] 6.7 g/dL Invalid Interpretation Code [facility] Work Phone: RBC (Bld) [#/Vol] 4.26 10*6/uL Low [facility] Work Phone: Sodium [Moles/Vol] 137 mmol/L Invalid Interpretation Code [facility] Work Phone: Thyroid stimulating hormone (TSH) 1.92 u[iU]/mL Invalid Interpretation Code [facility] Work Phone: [phone] Triglyceride [Mass/Vol] 383 mg/dL High B [facility] Work Phone: TSH Qn 1.92 m[IU]/L Invalid Interpretation Code [facility] Work Phone: Urea nitrogen [Mass/Vol] 22 mg/dL High [facility] Work Phone: Urea nitrogen/Creatinine [Mass ratio] 17.7 mg/mg Invalid Interpretation Code [employer] Work Phone: WBC (Bld) [#/Vol] 6.4 10*3/uL Invalid Interpretation Code [employer] Work Phone: WBC (Leukocytes) 6.4 10*3/uL Invalid Interpretation Code [employer] Work Phone: basophils as percent of blood leukocytes, manual count 0.5 % Invalid Interpretation Code [employer] Work Phone: eosinophils as percent of blood leukocytes, manual count 1.9 % Invalid Interpretation Code [employer] Work Phone: Lymphocytes/100 leukocytes 26.8 % Invalid Interpretation Code [employer] Work Phone: Lymphocytes/100 WBC (Bld) 26.8 % Invalid Interpretation Code [employer] Work Phone: Monocytes/100 leukocytes 9.2 % Invalid Interpretation Code [employer] Work Phone: Monocytes/100 WBC (Bld) 9.2 % Invalid Interpretation Code [employer] Work Phone: neutrophils, band form as percent of blood leukocytes, manual count 61.4 % Invalid Interpretation Code [employer] Work Phone: Office Visit: [facility] 05-08-19 15 cardiac risk group C Invalid Interpretation Code [employer] Work Phone: General cardiovascular disease 10Y risk [#] Jud.D'Agostino N/A Invalid Interpretation Code [employer] Work Phone: Office Visit: Consult- Typw 2 diabeteson 02-22-2014 Colonoscopy (procedure) Colonoscopy (procedure) Invalid Interpretation Code [employer] Work Phone: External Other: Preferred Me thod of Contacton 09-28-2013 methcontact secmsg Invalid Interpretation Code [employer] Work Phone: Patient's prefered method of contact secmsg Invalid Interpretation Code [employer] Work Phone: Clinical Lists Update: Prelo interventional radiologist 03-20-2013 Albumin/Globulin [Mass ratio] 0.9 {ratio} Invalid Interpretation Code [employer] Work Phone: Replaced Document: Shamika MACEDO Observationson 10-06-2012 Pulse (Heart Rate) 376 ms Invalid Interpretation Code [facility] Work Phone: QT interval/QT interval (corrected for heart rate), electrocardiogram 376 ms Invalid Interpretation Code [employer] Work Phone: Culture, urine Bacteria identified Cx Nom (U) Positive [facility] Work Phone: Vital Signs Date Time Vital Sign Value Performing Clinician Facility 10-02-2024 11:34-0400 Body height 167.[address] Fredis Moon MD Work Phone: [facility] 10-02-2024 11:34-0400 Body mass index (BMI) [Ratio] 33 kg/m2 Dr. Fredis Moon MD Work Phone: [facility] 10-02-2024 11:34-0400 Body weight 92.[address] Fredis Moon MD Work Phone: [facility] 10-02-2024 11:34-0400 Diastolic blood pressure 52 mm[Hg] Dr. Fredis Moon MD Work Phone: [facility] 10-02-2024 11:34-0400 Heart rate 64 /min Dr. Fredis Moon MD Work Phone: [facility] 10-02-2024 11:34-0400 Respiratory rate 18 /min Dr. Fredis Moon MD Work Phone: [facility] 10-02-2024 11:34-0400 Systolic blood pressure 97 mm[Hg] Dr. Fredis Moon MD Work Phone: [facility] 09-29-2024 08:14-0400 Body weight 94.[address] Fredis Moon MD Work Phone: [facility] 09-11-2024 10:57-0400 Body height 167.[address] Fredis Moon MD Work Phone: 7(208)706-724530 [place] [address] 09-11-2024 10:57-0400 Body weight 93.[address] Fredis Moon MD Work Phone: 8(902)342-719130 [place] [address] 09-08-2024 13:37-0400 Body temperature 98 [degF] Dr. Fredis Moon MD Work Phone: 1(324)347-960567 [place] [address] 09-08-2024 13:37-0400 Diastolic blood pressure 63 mm[Hg] Dr. Fredis Moon MD Work Phone: 9(645)643-909267 [place] [address] 09-08-2024 13:37-0400 Heart rate 54 /min Dr. Fredis Moon MD Work Phone: 6(100)541-695767 [place] [address] 09-08-2024 13:37-0400 Respiratory rate 18 /min Dr. Fredis Moon MD Work Phone: 5(343)725-872867 [place] [address] 09-08-2024 13:37-0400 SaO2% (BldA) [Mass fraction] 98 % Dr. Fredis Moon MD Work Phone: 1(606)529-998467 [place] [address] 09-08-2024 13:37-0400 Systolic blood pressure 160 mm[Hg] Dr. Fredis Moon MD Work Phone: 0(874)024-251130 [place] [address] 09-08-2024 10:34-0400 Body mass index (BMI) [Ratio] 33.1 kg/m2 Dr. Fredis Moon MD Work Phone: 2(078)097-665630 [place] [address] 09-08-2024 10:34-0400 Body weight 93.[address] Fredis Moon MD Work Phone: 0(000)079-262530 [place] [address] 09-08-2024 09:59-0400 Body height 167.[address] Fredis Moon MD Work Phone: 1(657)646-128930 [place] [address] 09-01-2024 08:23-0400 Body weight 93.[address] Fredis Moon MD Work Phone: 1(139)315-215930 [place] [address] 08-03-2024 07:09-0400 Body height 167.[address] Fredis Moon MD Work Phone: 3(774)619-981867 [place] [address] 08-03-2024 07:09-0400 Body weight 94.[address] Fredis Moon MD Work Phone: 7(950)939-858867 [place] [address] 07-06-2024 08:22-0400 Body height 167.[address] Fredis Moon MD Work Phone: 1(827)772-611667 [place] [address] 07-06-2024 08:22-0400 Body mass index (BMI) [Ratio] 33.2 kg/m2 Dr. Fredis Moon MD Work Phone: 8(601)018-408667 [place] [address] 07-06-2024 08:22-0400 Body weight 93.[address] Fredis Moon MD Work Phone: 0(043)669-178267 [place] [address] 07-06-2024 08:22-0400 Diastolic blood pressure 72 mm[Hg] Dr. Fredis Moon MD Work Phone: 0(343)068-515467 [place] [address] 07-06-2024 08:22-0400 Heart rate 59 /min Dr. Fredis Moon MD Work Phone: 9(726)665-929867 [place] [address] 07-06-2024 08:22-0400 Respiratory rate 18 /min Dr. Fredis Moon MD Work Phone: 0(684)850-677667 [place] [address] 07-06-2024 08:22-0400 SaO2% (BldA) [Mass fraction] 97 % Dr. Fredis Moon MD Work Phone: 0(674)044-202067 [place] [address] 07-06-2024 08:22-0400 Systolic blood pressure 125 mm[Hg] Dr. Fredis Moon MD Work Phone: 7(505)307-975667 [place] [address] 07-04-2024 10:21-0400 Body mass index (BMI) [Ratio] 34.3 kg/m2 Dr. Fredis Moon MD Work Phone: 3(936)280-329067 [place] [address] 07-04-2024 09:41-0400 Diastolic blood pressure 50 mm[Hg] Dr. Fredis Moon MD Work Phone: 1(769)919-801867 [place] [address] 07-04-2024 09:41-0400 Heart rate 56 /min Dr. Fredis Moon MD Work Phone: [facility] 07-04-2024 09:41-0400 SaO2% (BldA) [Mass fraction] 97 % Dr. Fredis Moon MD Work Phone: [facility] 07-04-2024 09:41-0400 Systolic blood pressure 122 mm[Hg] Dr. Fredis Moon MD Work Phone: [facility] 07-04-2024 09:28-0400 Body weight 96.[address] Fredis Moon MD Work Phone: [facility] 06-22-2024 11:18-0400 Diastolic blood pressure 67 mm[Hg] Miguel Angel Idriskosky [employer] Work Phone: [facility] 06-22-2024 11:18-0400 Heart rate 60 /min Miguel Angel Idriskoblancay [employer] - [employer] Work Phone: [facility] 06-22-2024 11:18-0400 Systolic blood pressure 129 mm[Hg] Miguel Angel Evangelinay [employer] - [employer] Work Phone: [facility] 06-22-2024 11:13-0400 Body mass index (BMI) [Ratio] 32.42 kg/m2 Miguel Angel Evangelinay [employer] - [employer] Work Phone: [facility] 06-22-2024 11:13-0400 Body weight 93.89 kg Miguel Angel Rozina [employer] - [employer] Work Phone: [facility] 06-14-2024 10:54-0400 Body temperature 98.8 [degF] Dr. Fredis Moon MD Work Phone: [facility] 06-14-2024 10:54-0400 Diastolic blood pressure 46 mm[Hg] Dr. Fredis Moon MD Work Phone: [facility] 06-14-2024 10:54-0400 Heart rate 52 /min Dr. Fredis Moon MD Work Phone: [facility] 06-14-2024 10:54-0400 Respiratory rate 18 /min Dr. Fredis Moon MD Work Phone: 0(043)534-122630 [place] [address] 06-14-2024 10:54-0400 SaO2% (BldA) [Mass fraction] 98 % Dr. Fredis Moon MD Work Phone: 0(623)624-199430 [place] [address] 06-14-2024 10:54-0400 Systolic blood pressure 139 mm[Hg] Dr. Fredis Moon MD Work Phone: 0(908)707-191467 [place] [address] 06-13-2024 10:00-0400 Body mass index (BMI) [Ratio] 32.8 kg/m2 Dr. Fredis Moon MD Work Phone: 8(353)086-430467 [place] [address] 06-13-2024 10:00-0400 Body weight 92.[address] Fredis Moon MD Work Phone: 9(721)537-652067 [place] [address] 06-07-2024 14:29-0400 Body height 167.[address] Fredis Moon MD Work Phone: 3(258)596-093567 [place] [address] 06-07-2024 14:29-0400 Body weight 91.[address] Fredis Moon MD Work Phone: 3(092)731-979267 [place] [address] 06-07-2024 08:31-0400 Heart rate 51 /min Dr. Fredis Moon MD Work Phone: 3(003)601-386767 [place] [address] 06-07-2024 08:26-0400 Body temperature 97.3 [degF] Dr. Fredis Moon MD Work Phone: 7(351)262-005467 [place] [address] 06-07-2024 08:26-0400 Diastolic blood pressure 74 mm[Hg] Dr. Fredis Moon MD Work Phone: 5(238)507-965467 [place] [address] 06-07-2024 08:26-0400 Respiratory rate 17 /min Dr. Fredis Moon MD Work Phone: 9(576)344-175667 [place] [address] 06-07-2024 08:26-0400 SaO2% (BldA) [Mass fraction] 95 % Dr. Fredis Moon MD Work Phone: 9(180)302-206067 [place] [address] 06-07-2024 08:26-0400 Systolic blood pressure 109 mm[Hg] Dr. Fredis Moon MD Work Phone: [facility] 06-06-2024 10:00-0400 Body mass index (BMI) [Ratio] 32.7 kg/m2 Dr. Fredis Moon MD Work Phone: [facility] 05-22-2024 22:00-0400 Diastolic blood pressure 55 mm[Hg] Dr. Fredis Moon MD Work Phone: [facility] 05-22-2024 22:00-0400 Heart rate 67 /min Dr. Fredis Moon MD Work Phone: [facility] 05-22-2024 22:00-0400 Systolic blood pressure 126 mm[Hg] Dr. Fredis Moon MD Work Phone: [facility] 05-22-2024 16:48-0400 Body mass index (BMI) [Ratio] 34.5 kg/m2 Dr. Fredis Moon MD Work Phone: [facility] 05-22-2024 16:48-0400 Body weight 97.[address] Fredis Moon MD Work Phone: [facility] 05-22-2024 15:30-0400 Body temperature 97 [degF] Dr. Fredis Moon MD Work Phone: [facility] 05-22-2024 15:30-0400 Respiratory rate 16 /min Dr. Fredis Moon MD Work Phone: [facility] 05-22-2024 15:30-0400 SaO2% (BldA) [Mass fraction] 97 % Dr. Fredis Moon MD Work Phone: [facility] 05-17-2024 12:54-0400 Body height 167.[address] Fredis Moon MD Work Phone: [facility] 05-16-2024 07:00-0400 Body mass index (BMI) [Ratio] 32.61 kg/m2 Daysi Velasco MD Work Phone: [facility] 05-16-2024 07:00-0400 Body weight 94.44 kg Daysi Velasco MD Work Phone: [employer] [facility] 05-16-2024 04:14-0400 Body temperature 97 [degF] Daysi Velasco MD Work Phone: [facility] 05-16-2024 04:14-0400 Diastolic blood pressure 49 mm[Hg] Daysi Velasco MD Work Phone: [employer] [facility] 05-16-2024 04:14-0400 Heart rate 66 /min Daysi Velasco MD Work Phone: [employer] [facility] 05-16-2024 04:14-0400 Respiratory rate 17 /min Daysi Velasco MD Work Phone: [facility] 05-16-2024 04:14-0400 SaO2% (BldA) [Mass fraction] 100 % Daysi Velasco MD Work Phone: [facility] 05-16-2024 04:14-0400 Systolic blood pressure 130 mm[Hg] Daysi Velasco MD Work Phone: [employer] [facility] 05-11-2024 08:32-0400 Body height 170.2 cm Daysi Velasco MD Work Phone: [facility] 05-11-2024 07:51-0400 SaO2% (BldA) [Mass fraction] 98.5 % Daysi Velasco MD Work Phone: [facility] 05-10-2024 22:27-0400 SaO2% (BldA) [Mass fraction] 98.2 % Daysi Velasco MD Work Phone: [employer] [facility] 05-10-2024 17:52-0400 SaO2% (BldA) [Mass fraction] 97.1 % Daysi Velasco MD Work Phone: [employer] [facility] 05-10-2024 14:12-0400 SaO2% (BldA) [Mass fraction] 98.5 % Daysi Velasco MD Work Phone: [employer] [facility] 05-10-2024 11:35-0400 SaO2% (BldA) [Mass fraction] 98.8 % Daysi Velasco MD Work Phone: [facility] 04-25-2024 11:46-0500 Diastolic blood pressure 68 mm[Hg] Daysi Velasco MD Work Phone: [facility] 04-25-2024 11:46-0500 Systolic blood pressure 151 mm[Hg] Daysi Velasco MD Work Phone: [facility] 04-25-2024 11:43-0500 Body height 169.5 cm Daysi Velasco MD Work Phone: [facility] 04-25-2024 11:43-0500 Body mass index (BMI) [Ratio] 32.98 kg/m2 Daysi Velasco MD Work Phone: [facility] 04-25-2024 11:43-0500 Body weight 94.8 kg Daysi Velasco MD Work Phone: [facility] 04-25-2024 11:43-0500 Heart rate 57 /min Daysi Velasco MD Work Phone: [facility] 04-24-2024 08:50-0500 Body weight 93.[address] Fredis Moon MD Work Phone: [facility] 04-24-2024 08:49-0500 Body mass index (BMI) [Ratio] 33.2 kg/m2 Dr. Fredis Moon MD Work Phone: [facility] 03-23-2024 08:09-0500 Body mass index (BMI) [Ratio] 34.3 kg/m2 Dr. Fredis Moon MD Work Phone: [facility] 03-23-2024 08:09-0500 Body weight 96.[address] Fredis Moon MD Work Phone: [facility] 03-23-2024 08:09-0500 Diastolic blood pressure 66 mm[Hg] Dr. Fredis Moon MD Work Phone: [facility] 03-23-2024 08:09-0500 Heart rate 63 /min Dr. Fredis Moon MD Work Phone: [facility] 03-23-2024 08:09-0500 Respiratory rate 18 /min Dr. Fredis Moon MD Work Phone: [facility] 03-23-2024 08:09-0500 Systolic blood pressure 118 mm[Hg] Dr. Fredis Moon MD Work Phone: 3(506)852-199130 [place] [address] 04-05-2023 14:27-0500 Body height 167.[address] Fredis Moon Work Phone: 1(531)888-266830 [place] [address] 04-05-2023 14:27-0500 Body mass index (BMI) [Ratio] 34.3 kg/m2 Dr. Fredis Moon Work Phone: 6(127)506-666930 [place] [address] 04-05-2023 14:27-0500 Body weight 96.[address] Fredis Moon Work Phone: 4(045)496-411067 [place] [address] 04-05-2023 14:27-0500 Diastolic blood pressure 71 mm[Hg] Dr. Fredis Moon Work Phone: 4(172)208-232330 [place] [address] 04-05-2023 14:27-0500 Heart rate 57 /min Dr. Fredis Moon Work Phone: 5(150)654-041330 [place] [address] 04-05-2023 14:27-0500 Respiratory rate 18 /min Dr. Fredis Moon Work Phone: 3(621)726-040930 [place] [address] 04-05-2023 14:27-0500 SaO2% (BldA) [Mass fraction] 99 % Dr. Fredis Moon Work Phone: [facility] 04-05-2023 14:27-0500 Systolic blood pressure 135 mm[Hg] Dr. Fredis Moon Work Phone: 7(127)823-635630 [place] [address] 12-30-2022 23:01-0500 Diastolic blood pressure 61 mm[Hg] Dr. Fredis Moon Work Phone: 4(579)646-405630 [place] [address] 12-30-2022 23:01-0500 Heart rate 60 /min Dr. Fredis Moon Work Phone: [facility] 12-30-2022 23:01-0500 Respiratory rate 15 /min Dr. Fredis Moon Work Phone: [facility] 12-30-2022 23:01-0500 SaO2% (BldA) [Mass fraction] 96 % Dr. Fredis Moon Work Phone: [facility] 12-30-2022 23:01-0500 Systolic blood pressure 132 mm[Hg] Dr. Fredis Moon Work Phone: [facility] 12-30-2022 20:27-0500 Body height 167.[address] Fredis Moon Work Phone: [facility] 12-30-2022 20:27-0500 Body mass index (BMI) [Ratio] 32.5 kg/m2 Dr. Fredis Moon Work Phone: [facility] 12-30-2022 20:27-0500 Body temperature 97.9 [degF] Dr. Fredis Moon Work Phone: 1(248)117-267130 [place] [address] 12-30-2022 20:27-0500 Body weight 91.[address] Fredis Moon Work Phone: [facility] 01-21-2022 14:21-0500 Body height 170.[address] Fredis Moon Work Phone: [facility] 01-21-2022 14:21-0500 Body mass index (BMI) [Ratio] 33 kg/m2 Dr. Fredis Moon Work Phone: [facility] 01-21-2022 14:21-0500 Body weight 95.[address] Fredis Moon Work Phone: [facility] 01-21-2022 14:21-0500 Diastolic blood pressure 68 mm[Hg] Dr. Fredis Moon Work Phone: [facility] 01-21-2022 14:21-0500 Heart rate 64 /min Dr. Fredis Moon Work Phone: [facility] 01-21-2022 14:21-0500 Respiratory rate 18 /min Dr. Fredis Moon Work Phone: [facility] 01-21-2022 14:21-0500 Systolic blood pressure 116 mm[Hg] Dr. Fredis Moon Work Phone: [facility] 05-29-2021 09:49-0400 Body temperature 97.81 [degF] Yoselin Khan APRN.ROCK WORKER Work Phone: [facility] 05-29-2021 09:49-0400 Body weight 91.44 kg Yoselin Khan APRN.ROCK WORKER Work Phone: [facility] 05-29-2021 09:49-0400 Diastolic blood pressure 74 mm[Hg] Yoselin Khan APRN.ROCK WORKER Work Phone: [facility] 05-29-2021 09:49-0400 Heart rate 59 /min Yoselin Khan APRN.ROCK WORKER Work Phone: [facility] 05-29-2021 09:49-0400 Respiratory rate 18 /min Yoselin Khan APRN.ROCK WORK[employer] Work Phone: [facility] 05-29-2021 09:49-0400 SaO2% (BldA) [Mass fraction] 98 % Yoselin Khan APRN.ROCK WORK[employer] Work Phone: [facility] 05-29-2021 09:49-0400 Systolic blood pressure 136 mm[Hg] Yoselin Khan APRN.ROCK WORKER Work Phone: [facility] 05-23-2021 11:24-0400 Body temperature 97.5 [degF] Alix Cummins-Robbie [employer] WORK[employer] Work Phone: [facility] 05-23-2021 11:24-0400 Body weight 93.35 kg Alix Valle [employer] WORK[employer] Work Phone: [facility] 05-23-2021 11:24-0400 Diastolic blood pressure 68 mm[Hg] Alix Cummins-Robbie [employer] WORK[employer] Work Phone: [facility] 05-23-2021 11:24-0400 Heart rate 67 /min Alix Valle [employer] WORK[employer] Work Phone: [facility] 05-23-2021 11:24-0400 Respiratory rate 18 /min Alix Placido-Robbie [employer] WORK[employer] Work Phone: [facility] 05-23-2021 11:24-0400 SaO2% (BldA) [Mass fraction] 96 % Alix Klinecris-Robbie [employer]GER.[employer] WORKER Work Phone: [facility] 05-23-2021 11:24-0400 Systolic blood pressure 118 mm[Hg] Alix Placido-Robbie [employer]GER.[employer] WORK[employer] Work Phone: [facility] 12-21-2016 13:02-0400 Body height 170.18 cm Rosendopololópez Huerta [facility] Work Phone: 12-21-2016 13:02-0400 Body mass index (BMI) [Ratio] 29.29 kg/m2 Hailey Huerta [facility] Work Phone: 12-21-2016 13:02-0400 Body weight 84.82 kg Hailey Huerta [facility] Work Phone: 12-21-2016 13:02-0400 Diastolic blood pressure 58 mm[Hg] Hailey Huerta [facility] Work Phone: 12-21-2016 13:02-0400 Heart rate 60 /min Rosendotallópez Huerta [facility] Work Phone: 12-21-2016 13:02-0400 Respiratory rate 16 /min [facility] Work Phone: 12-21-2016 13:02-0400 Systolic blood pressure 110 mm[Hg] Hailey [facility] Work Phone: 05-14-2016 08:57-0400 Body height 170.18 cm Rosa Steevn Work Phone: [facility] Work Phone: 05-14-2016 08:57-0400 Body mass index (BMI) [Ratio] 30.63 kg/m2 Rosa Parekhn Work Phone: [employer] Work Phone: 05-14-2016 08:57-0400 Body surface area Derived from formula 2 m2 Rosa Parekhn Work Phone: [employer] Work Phone: 05-14-2016 08:57-0400 Body temperature 98.3 [degF] Rosa Parekhn Work Phone: [employer] Work Phone: 05-14-2016 08:57-0400 Body temperature 98.29 [degF] Rosa Parekhn Work Phone: [employer] Work Phone: 05-14-2016 08:57-0400 Body weight 88.72 kg Rosa Harris Work Phone: [employer] Work Phone: 05-14-2016 08:57-0400 Diastolic blood pressure 67 mm[Hg] Rosa Parekhn Work Phone: [employer] Work Phone: 05-14-2016 08:57-0400 Heart rate 63 /min Rosa Parekhn Work Phone: [employer] Work Phone: 05-14-2016 08:57-0400 Respiratory rate 16 /min Rosa Parekhn Work Phone: [employer] Work Phone: 05-14-2016 08:57-0400 SaO2% (BldA) [Mass fraction] 96 % Rosa Parekhn Work Phone: [employer] Work Phone: 05-14-2016 08:57-0400 Systolic blood pressure 111 mm[Hg] Rosa Steven Work Phone: [employer] Work Phone: 05-14-2016 08:57-0400 Weight 88.72 kg Charity Landis RN [facility] Work Phone: Encounters Encounter Date Encounter Type Care Provider Facility Start: 11-22-2024 ambulatory [facility] Facility:[facility] Start: 10-02-2024 End: 10-02-2024 ambulatory [facility] Facility:[facility] Start: 10-02-2024 End: 10-02-2024 Patient encounter procedure Wagner BROWN -[facility] Work Phone: Start: 10-02-[address] Daysi peoples MD -Cardiac Rehab Work Phone: Start: 09-29-2024 ambulatory [facility] Facility:[facility] Start: 09-20-2024 End: 09-21-[address] Fredis Moon MD Work Phone: -Cardiac Rehab Start: 09-20-2024 End: 09-21-[address] Daysi Velasco MD -Cardiac Rehab Work Phone: Start: 09-18-[address] Daysi peoples MD -Cardiac Rehab Work Phone: Start: 09-14-2024 ambulatory [facility] Facility:[facility] Start: 09-12-2024 End: 09-12-[address] Fredis Moon MD Work Phone: -Laboratory Specimen Start: 09-12-2024 End: 09-12-[address] Fredis Moon MD -Laboratory Specimen Work Phone: Start: 09-12-2024 End: 09-12-2024 ambulatory [facility] Facility:[facility] Start: 09-08-2024 End: 09-08-2024 Emergency department patient visit Dr. Fredis Moon MD Work Phone: -Emergency Department Work Phone: Start: 09-08-[address] Daysi peoples MD -Cardiac Rehab Work Phone: Start: 09-07-2024 End: 09-07-[address] Fredis Moon MD -Laboratory Work Phone: Start: 09-07-2024 End: 09-07-2024 ambulatory Fredis Moon Facility:[facility] Start: 08-21-2024 End: 08-21-[address] Fredis Moon MD Work Phone: -Cardiac Rehab Start: 08-21-2024 End: 08-21-[address] Daysi Velasco MD -Cardiac Rehab Work Phone: Start: 07-24-2024 End: 07-24-2024 ambulatory Chante Hong [facility] Start: 07-21-2024 End: 07-22-[address] Fredis Moon MD Work Phone: [facility] Work Phone: Start: 07-21-2024 End: 07-22-[address] Daysi Velasco MD -Cardiac Rehab Work Phone: Start: 07-07-[address] Daysi peoples MD -Cardiac Rehab Work Phone: Start: 07-06-2024 End: 07-06-2024 Patient encounter procedure Mi BROWN -[facility] Work Phone: Start: 07-06-2024 End: 07-06-[address] 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 Daysi peoples MD -Cardiac Rehab Work Phone: Start: 07-04-2024 End: 07-04-[address] Fredis Moon MD Work Phone: [facility] Work Phone: Start: 07-04-2024 End: 07-04-[address] Dayis Velasco MD -Cardiac Rehab Work Phone: Start: 07-04-2024 End: 07-04-2024 ambulatory Fredis Norton [facility] Facility:[facility] Start: 06-27-2024 End: 06-27-2024 ambulatory Chante Hong RN [facility] Start: 06-23-2024 End: 06-23-2024 Telephone encounter Daysi Velasco MD Work Phone: [facility] Thoracic Surgery [facility] Comment on above: Orders Start: 06-22-2024 End: 06-22-2024 ambulatory MIGUEL ANGEL [facility]Ge [facility] Start: 06-22-2024 End: 06-22-2024 Postop follow up visit related to original px Miguel Angel Handy [employer] - [employer] Work Phone: 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 Daysi hall MD -[facility] Start: 06-02-2024 End: 06-02-[address] Fredis Moon MD Work Phone: [facility] Work Phone: Start: 06-02-2024 End: 06-02-[address] 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 Daysi hall MD -[facility] Start: 05-18-2024 End: 05-18-[address] Fredis Moon MD Work Phone: [facility] Work Phone: Start: 05-18-2024 End: 05-18-[address] Fredis Moon MD -Cardiovascular Services Work Phone: Start: 05-18-2024 End: 05-18-2024 ambulatory Fredis Moon Facility:[facility] Start: 05-16-2024 End: 06-14-2024 Evaluation and management of inpatient Dr. Fredis Moon MD -Transitional Care Unit Start: 05-10-2024 End: 05-16-2024 Encounter for other preprocedural examination [facility] Start: 05-10-2024 End: 05-16-2024 Evaluation and management of inpatient Daysi Velasco MD Work Phone: [facility] Cardiac Thoracic Vascular Intensive Care Unit CTV ICU T1 Start: 05-10-2024 End: 05-16-2024 Preoperative state Daysi Velasco MD Work Phone: [facility] Start: 05-04-2024 End: 05-04-2024 Subsequent hospital visit by physician Arie Xr Exam Room 1 [facility] X-Ray Comment on above: Arrived Start: 05-04-2024 End: 05-04-[address] [facility] Start: 05-04-2024 End: 05-04-2024 ambulatory [facility] Start: 04-25-2024 End: 04-25-2024 Admission to same day surgery center Carter Mimi Atkinson ROCK WORKER Work Phone: [facility] Thoracic [facility] Comment on above: CAD in [place] artery (Primary Dx); Preoperative clearance; 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 (CODE) Start: 04-25-2024 End: 04-25-2024 Preoperative state Carter Geehaley CENTENO - ROCK WORKER Work Phone: [facility] Work Phone: Start: 04-25-2024 End: 04-25-2024 Telephone encounter Daysi Velasco MD Work Phone: [facility] Thoracic [facility] Comment on above: Surgery Scheduling Start: 04-25-2024 End: 04-25-2024 Office outpatient new 60 minutes Daysi Velasco MD Work Phone: 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 Thoracic Surgery - [place] Start: 04-24-2024 Non-patient / Non-visit Dr. Samson bundy MD -[facility] Start: 04-24-2024 ambulatory Samson Esteban Facility:[facility] Start: 04-24-2024 End: 04-24-2024 Admission to same day surgery center Dr. Samson Elder MD -Signal Operator/Special Procedures Work Phone: Start: 04-24-2024 End: 04-24-2024 ambulatory Samson Esteban Facility:[facility] Start: 04-21-2024 ambulatory Samson Esteban Facility:[facility] Start: 04-21-2024 Non-patient / Non-visit Corky Connolly -[facility] Start: 04-20-2024 Non-patient / Non-visit Dr. Samson bundy MD -[facility] Start: 04-20-2024 ambulatory Samson Elder Facility:[facility] Start: 04-17-2024 ambulatory Fredis Chi Red Facility:[facility] Start: 04-17-2024 Non-patient / Non-visit Dr. Daysi hall MD -[facility] Start: 04-17-2024 End: 04-17-[address] Samson Elder MD -Cardiovascular Services Work Phone: Start: 04-17-2024 End: 04-17-2024 ambulatory Fredis Chi Red Facility:[facility] Start: 03-23-2024 End: 03-23-[address] Samson Elder MD -[facility] Work Phone: Start: 03-23-2024 End: 03-23-2024 ambulatory Fredis Chi Red Facility:[facility] Start: 03-07-2024 End: 03-07-[address] Fredis Moon MD -Laboratory, Phy Office 3rd Flr Start: 03-07-2024 End: 03-07-2024 ambulatory Fredis Chi Red Facility:[facility] Start: 01-21-2024 End: 01-21-2024 ambulatory Fredis Chi Red Facility:[facility] Start: 12-13-2023 End: 12-13-2023 ambulatory Fredis Chi Red Facility:[facility] Start: 12-07-2023 End: 12-07-2023 ambulatory Fredis Chi Red Facility:[facility] Start: 06-02-2023 End: 06-02-[address] Fredis Moon Work Phone: [facility] Work Phone: Start: 06-02-2023 End: 06-02-[address] Fredis Moon Work Phone: [facility]-Radiology, [facility] Work Phone: Start: 06-01-2023 End: 06-01-[address] Fredis Moon Work Phone: [facility] Work Phone: Start: 06-01-2023 End: 06-01-[address] [facility] Start: 04-05-2023 End: 04-05-[address] Fredis Moon Work Phone: [facility] Work Phone: Start: 04-05-2023 End: 04-05-[address] Fredis Moon Work Phone: [facility] Work Phone: Start: 03-02-2023 End: 03-02-[address] Fredis Moon Work Phone: [facility] Work Phone: Start: 03-02-2023 End: 03-02-[address] [facility] Start: 01-15-2023 End: 01-15-[address] Fredis Moon Work Phone: [facility] Work Phone: Start: 01-15-2023 End: 01-15-[address] [facility] Start: 12-30-2022 End: 12-30-2022 Emergency department patient [facility] Work [facility]: Start: 12-03-2022 Non-patient / Non-visit Dr. Mir Moon Work Phone: [facility] Start: 12-03-2022 End: 12-03-[address] Fredis Moon Work Phone: [facility] Work Phone: Start: 12-03-2022 End: 12-03-2022 [facility] Start: 11-30-2022 End: 11-30-2022 ambulatory [facility] Work Phone: Start: 11-30-2022 End: 11-30-2022 Patient encounter procedure [facility]-Laboratory Work Phone: Start: 08-27-2022 End: 08-27-2022 ambulatory [facility] Work Phone: Start: 08-27-2022 End: 08-27-2022 [facility] Start: 07-10-2022 End: 07-10-2022 ambulatory [facility] Work Phone: Start: 07-10-2022 End: 07-10-2022 Patient encounter procedure [facility]-Laboratory Start: 04-30-2022 End: 04-30-[address] Fredis Moon Work Phone: [facility] Work Phone: Start: 04-30-2022 End: 04-30-[address] [facility] Start: 02-18-2022 End: 02-18-[address] Fredis Moon Work Phone: [facility]-Pulmonary Services/Neurology Start: 01-29-2022 End: 01-29-[address] Ferdis Moon [facility] Start: 01-21-2022 End: 01-21-[address] Fredis Moon Work Phone: [facility] Start: 01-14-2022 End: 01-14-2022 ambulatory [facility] Work Phone: Start: 01-14-2022 End: 01-14-2022 Patient encounter procedure [facility]-Laboratory Start: 12-04-2021 End: 12-04-2021 ambulatory [facility] Work Phone: Start: 12-04-2021 End: 12-04-2021 Patient encounter procedure [facility]-Laboratory, Phy Office 3rd Flr Start: 10-30-2021 End: 10-30-2021 ambulatory [facility] Work Phone: Start: 10-30-2021 End: 10-30-2021 [facility] Start: 09-03-2021 End: 09-03-2021 Patient encounter procedure [facility]-Pulmonary Services/Neurology Start: 08-15-2021 End: 08-15-2021 [facility] Start: 07-11-2021 End: 07-11-2021 Patient encounter procedure [facility]-Laboratory Start: 05-29-2021 End: 05-29-2021 Patient encounter procedure Yoselin Khan APRN.ROCK WORKER Work Phone: [facility] Comment on above: Close exposure to [place] VID-19 virus (Primary Dx) Start: 05-23-2021 End: 05-23-2021 Patient encounter procedure Alix Valle APRN.ROCK WORKER Work Phone: [facility] Comment on above: Close exposure to [place] VID-19 virus (Primary Dx) Start: 05-14-2021 End: 05-14-2021 Patient encounter procedure [facility]-Pulmonary Services/Neurology Start: 05-12-2021 End: 05-12-2021 Patient encounter procedure [facility]-Laboratory, Phy Office 3rd Flr Start: 04-04-2021 End: 04-04-2021 Patient encounter procedure [facility]-Laboratory Start: 02-11-2021 [facility] Start: 01-20-2021 Patient encounter procedure [facility]-Sleep Lab Procedures Date Procedure Procedure Detail Performing Clinician Start: 09-12-2024 Urine microalbumin/creatinine ratio measurement Dr. Fredis Moon MD Work Phone: Start: 09-08-2024 X-ray of chest, PA a nd lateral views Dr. Fredis Moon MD Work Phone: Start: 09-08-[address] Fredis Moon MD Work Phone: Start: 09-07-2024 Vitamin D, 25-hydrox y measurement Dr. Fredis Moon MD Work Phone: Comment on above: Vitamin D StatusDefi ciency: <20 ng/mL (50nmol/L)Insufficiency: 20-30 ng/mL (50-75 nmol/L)Sufficiency: 30-100 ng/mL (75-250 nmol/L)Toxicity: >100 ng/mL (>250 nmol/L) Start: 07-31-2024 Adult depression scr eening assessment Chante Hong RN Start: 06-14-[address] Fredis Moon MD Work Phone: Start: 05-27-2024 Total iron binding c apacity measurement Dr. Fredis Moon MD Work Phone: Start: 05-23-2024 Measurement of occul t blood in stool specimen using immunoassay Dr. Fredis Moon MD Work Phone: Start: 05-16-2024 End: 05-16-2024 Basic metabolic panel calcium total Miguel Angel Handy FURNACE CHARGER - [employer] WORK[employer] Work Phone: Start: 05-16-2024 Radiologic exam ches t single view Miguel Angel Handy FURNACE CHARGER - [employer] WORK[employer] Work Phone: Start: 05-15-2024 Glucose quantitative blood xcpt reagent strip Daysi Vealsco MD Work Phone: Start: 05-15-2024 Glucose quantitative blood xcpt reagent strip Daysi Velasco MD Work Phone: Start: 05-15-2024 Glucose quantitative blood xcpt reagent strip Daysi Velasco MD Work Phone: Start: 05-15-2024 Glucose quantitative blood xcpt reagent strip Daysi Velasco MD Work Phone: Start: 05-15-2024 Radiologic exam ches t single view Miguel Angel Mikey Rozina F[employer]NACE CHARGER - [employer] WORK[employer] Work Phone: Start: 05-15-2024 Basic metabolic pane l calcium total Miguel Angel Mikey Rozina FURNACE CHARGER - [employer] WORK[employer] Work Phone: Start: 05-14-2024 Glucose quantitative blood xcpt reagent strip Daysi Velasco MD Work Phone: Start: 05-14-2024 Glucose quantitative blood xcpt reagent strip Daysi Velasco MD Work Phone: Start: 05-14-2024 Glucose quantitative blood xcpt reagent strip Daysi Velasco MD Work Phone: Start: 05-14-2024 Radiologic exam ches t single view Miguel Angel Handy FURNACE CHARGER - [employer] Work Phone: Start: 05-14-2024 Glucose quantitative blood xcpt reagent strip Daysi Velasco MD Work Phone: Start: 05-14-2024 Basic metabolic pane l calcium total Miguel Angel VickySp Handy FURNACE CHARGER - [employer] WORK[employer] Work Phone: Start: 05-13-2024 Glucose quantitative blood xcpt reagent strip Daysi Velasco MD Work Phone: Start: 05-13-2024 Glucose quantitative blood xcpt reagent strip Daysi Velasco MD Work Phone: Start: 05-13-2024 Glucose quantitative blood xcpt reagent strip Daysi Velasco MD Work Phone: Start: 05-13-2024 Glucose quantitative blood xcpt reagent strip Daysi Velasco MD Work Phone: Start: 05-13-2024 Radiologic exam ches t single view Miguel Angel VickySp Handy F[employer]NACE CHARGER - [employer] Work Phone: Start: 05-13-2024 Basic metabolic pane l calcium total Miguel Angel VickySp Handy F[employer]NACE CHARGER - [employer] Work Phone: Start: 05-12-2024 Glucose quantitative blood xcpt reagent strip Daysi Velasco MD Work Phone: Start: 05-12-2024 Glucose quantitative blood xcpt reagent strip Daysi Velasco MD Work Phone: Start: 05-12-2024 Glucose quantitative blood xcpt reagent strip Daysi Velasco MD Work Phone: Start: 05-12-2024 Radiologic exam ches t single view Miguel Angel Handy F[employer]NACE CHARGER - [employer] Work Phone: Start: 05-12-2024 Glucose quantitative blood xcpt reagent strip Daysi Velasco MD Work Phone: Start: 05-12-2024 Ecg routine ecg w/le ast 12 lds trcg only w/o i&r Miguel Angel Handy FURNACE CHARGER - [employer] Work Phone: Start: 05-12-2024 Basic metabolic pane l calcium total Miguel Angel Handy FURNACE CHARGER - [employer] WORK[employer] Work Phone: Start: 05-11-2024 Glucose quantitative blood xcpt reagent strip Daysi Velasco MD Work Phone: Start: 05-11-2024 Glucose quantitative blood xcpt reagent strip Daysi Velasco MD Work Phone: Start: 05-11-2024 Glucose quantitative blood xcpt reagent strip Daysi Velasco MD Work Phone: Start: 05-11-2024 Glucose quantitative blood xcpt reagent strip Daysi Velasco MD Work Phone: Start: 05-11-2024 Glucose quantitative blood xcpt reagent strip Daysi Velasco MD Work Phone: Start: 05-11-2024 Glucose quantitative blood xcpt reagent strip Daysi Velasco MD Work Phone: Start: 05-11-2024 Blood gases any comb ination ph pco2 po2 co2 hco3 Miguel Angel Handy F[employer]NACE CHARGER - [employer] Work Phone: Start: 05-11-2024 End: 05-11-2024 Glucose quantitative blood xcpt reagent strip Daysi Velasco MD Work Phone: Start: 05-11-2024 Radiologic exam ches t single view Miguel Angel Handy FURNACE CHARGER [facility] Work Phone: Start: 05-11-2024 Ecg routine ecg w/le ast 12 lds trcg only w/o i&r Miguel Angel Handy FURNACE CHARGER - [employer] Work Phone: Start: 05-11-2024 End: 05-11-2024 Basic metabolic panel calcium total Miguel Angel Handy FURNACE CHARGER - [employer] Work Phone: Start: 05-11-2024 End: 05-11-2024 Glucose quantitative blood xcpt reagent strip Daysi Velasco MD Work Phone: Start: 05-11-2024 End: 05-11-2024 Coagj/fbrnlys assay whole blood additive per day Wagner Mathias DO Work Phone: Start: 05-11-2024 End: 05-11-2024 Blood count hematocrit Wagner Mathias DO Work Phone: Start: 05-10-2024 Blood gases any comb ination ph pco2 po2 co2 hco3 Miguel Angel Newrogerio FURNACE CHARGER - [employer] WORK[employer] Work Phone: Start: 05-10-2024 End: 05-10-2024 Glucose quantitative blood xcpt reagent strip Daysi Velasco MD Work Phone: Start: 05-10-2024 Compatibility each u nit electronic Wagner Mathias DO Work Phone: Start: 05-10-2024 End: 05-10-2024 TRANSFUSE RED BLOOD CELLS Wagner moreno DO Work Phone: Start: 05-10-2024 Glucose quantitative blood xcpt reagent strip Daysi Velasco MD Work Phone: Start: 05-10-2024 End: 05-10-2024 Blood count complete auto&auto difrntl wbc Wagner Mathias DO Work Phone: Start: 05-10-2024 Manual Differential panel - Blood Wagner Mathias DO Work Phone: Start: 05-10-2024 Glucose quantitative blood xcpt reagent strip Daysi Velasco MD Work Phone: Start: 05-10-2024 Blood gases any comb ination ph pco2 po2 co2 hco3 Miguel Angel Mikey Rozina F[employer]NACE CHARGER - [employer] WORK[employer] Work Phone: Start: 05-10-2024 End: 05-10-2024 Basic metabolic panel calcium total Miguel Angel Jensen Rozina FURNACE CHARGER - [employer] WORK[employer] Work Phone: Start: 05-10-2024 EXTUBATION Miguel Angel Louis FURNACE CHARGER - [employer] WORK[employer] Work Phone: Start: 05-10-2024 End: 05-10-2024 Glucose quantitative blood xcpt reagent strip Daysi Velasco MD Work Phone: Start: 05-10-2024 Comprehensive metabo lic panel Miguel Angel PerrySp Handy FURNACE CHARGER - [employer] WORK[employer] Work Phone: Start: 05-10-2024 Blood gases any comb ination ph pco2 po2 co2 hco3 Miguel Angel Jensen Rozina FURNACE CHARGER - [employer] WORK[employer] Work Phone: Start: 05-10-2024 Radiologic exam ches t single view Miguel Angel Mikey Rozina FURNACE CHARGER - [employer] WORK[employer] Work Phone: Start: 05-10-2024 Ecg routine ecg w/le ast 12 lds trcg only w/o i&r Miguel Angel VickySp Handy FURNACE CHARGER - [employer] WORK[employer] Work Phone: Start: 05-10-2024 Echo transesophag r- t 2d w/prb img acquisj i&r Daysi Velasco MD Work Phone: Start: 05-10-2024 End: 05-10-2024 Glucose quantitative blood xcpt reagent strip Daysi Velasco MD Work Phone: Start: 05-10-2024 Blood gases any comb ination ph pco2 po2 co2 hco3 Daysi Velasco MD Work Phone: Start: 05-10-2024 Comprehensive metabo lic panel Daysi Velasco MD Work Phone: Start: 05-10-2024 Level iv surg pathol ogy gross&microscopic exam Daysi Velasco MD Work Phone: Start: 05-10-2024 End: 05-10-2024 Cabg w/arterial graft three arterial grafts Daysi Velasco MD Work Phone: Start: 05-10-2024 End: 05-10-2024 Echo transesophag r-t 2d w/prb img acquisj i&r Daysi Velasco MD Work Phone: Start: 05-10-2024 End: 05-10-2024 Glucose quantitative blood xcpt reagent strip Daysi Velasco MD Work Phone: Start: 05-04-2024 Radiologic exam ches t 2 views Azam Mcbride FURNACE CHARGER - [employer] WORK[employer] Work Phone: Start: 05-04-2024 Antibody screen DAYSI KIRK RENALDO Comment on above: Performed By: #### L [id number] ####Export Freight Clerk: DANIELLA PEREZ ([phone])[facility] BLOOD [facility] ([address] Start: 04-21-2024 X-ray of chest, PA a nd lateral views Dr. Fredis Moon MD Work Phone: Start: 04-17-2024 Cardiovascular stres s test using pharmacologic stress agent Dr. Fredis Moon MD Work Phone: Start: 06-02-2023 Radiologic examinati on of knee Dr. Fredis Moon Work Phone: Start: 12-30-2022 CT cervical spine wi thout contrast Dr. Fredis Moon Work Phone: Start: 12-30-2022 CT of head without contrast Dr. Fredis Moon Work Phone: Start: 05-14-2021 X-ray of lumbar spin e, two or three views Start: 12-21-2016 End: 12-21-2016 Dietary management education, guidance, and counseling Hailey Huerta Start: 12-21-2016 End: 12-21-2016 Documentation of current medications Hailey Huerta Start: 12-21-2016 End: 12-21-2016 Follow Up Appt 1 year Josias Clayton Start: 12-21-2016 End: 12-21-2016 PFM Josias Turk MD Start: 05-14-2016 End: 05-14-2016 Dietary management education, guidance, and counseling Rosa Harris Work Phone: Start: 05-14-2016 End: 05-14-2016 Documentation of current medications Rosa Harris Work Phone: Start: 12-20-2015 End: 12-20-2015 Ecg routine ecg w/least 12 lds w/i&r Josias Turk MD Start: 12-20-2015 End: 01-21-2016 Echocardiography Josias Turk MD Start: 12-20-2015 End: 12-20-2015 Follow Up Appt 1 year Josias Clayton Start: 12-20-2015 End: 12-20-2015 PFM Josias Turk MD Start: 12-20-2015 End: 12-20-2015 Ecg [...] End: 05-08-2014 Documentation of current medications Raven Thrasher PA-C Work Phone: Start: 05-07-2014 End: 05-07-2014 Follow Up Appt 6 months Raven Thrasher PA-C Work Phone: Start: 05-07-2014 End: 05-07-2014 PF Raven Thrasher PA-C Work Phone: Start: 05-07-2014 End: 05-08-2014 Documentation of current medications Raven Thrasher PA-C Work Phone: Start: 05-07-2014 End: 05-07-2014 Follow Up Appt 6 months Raven Thrasher PA-C Work Phone: Start: 05-07-2014 End: 05-07-2014 PF Raven Thrasher PA-C Work Phone: Start: 02-22-2014 End: 02-22-2014 Katie Rosa Steven Work Phone: Start: 11-06-2013 End: 11-06-2013 Follow Up Appt 6 months Josias Turk MD Start: 11-06-2013 End: 11-06-2013 ARELIS Turk MD Start: 11-06-2013 End: 11-06-2013 Follow Up Appt 6 months Josias Turk MD Start: 11-06-2013 End: 11-06-2013 ARELIS Turk MD Start: 05-15-2013 End: 04-26-2014 24 [...] End: 05-15-2013 Nuclear stress test -exercise Josias Turk MD Start: 10-06-2012 End: 10-06-2012 PFM Josias Turk MD Start: 10-06-2012 End: 05-15-2013 24 hour holter monitor Josias Turk MD Start: 10-06-2012 End: 10-06-2012 Ecg routine ecg w/least 12 lds w/i&r Josias Turk MD Start: 10-06-2012 End: 05-15-2013 Echocardiography Josias Turk MD Start: 10-06-2012 End: 10-06-2012 Follow Up Appt 6 months Josias Turk MD Start: 10-06-2012 End: 05-15-2013 Nuclear stress test -exercise Josias Turk MD Start: 10-06-2012 End: 10-06-2012 PFM Josias Turk MD History of coronary artery bypass grafting S/P CABG (coronary artery bypass graft) Daysi Velasco MD Work Phone: History of coronary artery 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 Fredis Moon MD Work Phone: History of coronary artery 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 Fredis Moon MD History of coronary artery bypass grafting S/P CABG (coronary artery bypass graft) Miguel Angel Handy F[employer]NACE [employer]GER [employer] Work Phone: History of coronary artery bypass grafting S/P CABG (coronary artery bypass graft) Miguel Angel Handy F[employer]NA[employer]GER [employer] Work Phone: History of coronary artery bypass grafting S/P CABG (coronary artery bypass graft) Daysi Velasco MD Work Phone: History of coronary artery bypass grafting S/P CABG (coronary artery bypass graft) Miguel Angel Handy [employer]NA[employer] Work Phone: End: 02-23-2024 History of coronary artery 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 Fredis Moon MD Urine culture Plan of Treatment Date Care Activity Detail Author Start: 07-31-2025 Depression Screening Depression Screening [facility] Start: 05-16-2025 Diabetes: Estimated Glomerular Filtration Rate for Kidney Health Diabetes: Estimated Glomerular Filtration Rate for Kidney Health [facility] Start: 05-16-2025 [facility] Start: 05-04-2025 Diabetes: Estimated Glomerular Filtration Rate for Kidney Health Diabetes: Estimated Glomerular Filtration Rate for Kidney Health [facility] Start: 10-23-2024 Influenza vaccination Influenza Vaccine (Season Ended) [facility] Start: 09-08-2024 [facility] Start: 09-08-2024 [facility] Start: 07-05-2024 End: 07-05-2024 Telemedicine consultation with patient 07/05/2024 1:[address] 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 [place] [address] [facility] Cardiovascular Thoracic Surgery - [place] Start: 06-14-2024 Patient discharge [facility] Start: 06-13-2024 Development of care plan [facility] Start: 06-10-2024 Patient discharge [facility] Start: 06-07-2024 Referral to service [facility] Start: 06-05-2024 [facility] Start: 06-05-2024 Recommendation to continue with treatment [facility] Start: 05-25-2024 End: 05-25-2024 ambulatory [facility] Cardiovascular Thoracic Surgery [facility] Start: 05-25-2024 [facility] Start: 05-23-2024 Speech therapy management [facility] Start: 05-23-2024 Measurement of occult blood in stool specimen using immunoassay [facility] Start: 05-22-2024 Speech therapy assessment [facility] Start: 05-22-2024 [facility] Start: 05-17-2024 Development of care plan [facility] Start: 05-17-2024 Developing a treatment plan [facility] Start: 05-17-2024 End: 05-17-2024 [facility] Start: 05-17-2024 End: 05-17-2024 Administration of blood product [facility] Start: 05-16-2024 Speech therapy assessment [facility] Start: 05-16-2024 [facility] [facility] Start: 05-16-2024 Provision of activity privileges [facility] Start: 05-16-2024 End: 05-16-2024 [facility] Start: 05-16-2024 Wound care [facility] Start: 05-16-2024 Admission procedure [facility] Start: 05-16-2024 Introduction of urinary catheter [facility] Start: 05-16-2024 Measuring intake and output [facility] Start: 05-16-2024 End: 05-17-2024 Patient referral to dietitian [facility] Start: 05-16-2024 Referral to occupational therapist [facility] Start: 05-16-2024 Referral to service [facility] Start: 05-16-2024 Vital signs measurements [facility] Start: 05-16-2024 Application of elastic bandage [facility] Start: 05-16-2024 Continuous positive airway pressure ventilation treatment [facility] Start: 05-16-2024 [facility] Start: 05-10-2024 End: 05-10-2024 Admission to same day surgery center 05/10/2024 7:30 AM EDT - 05/10/2024 12:30 PM EDT Surgery [facility] MA[facility] OR [address] [place] [id number] Daysi Velasco MD [address] [place] [address], [address] [place] [address] CORONARY ARTERY BYPASS GRAFT [46906 (CPT )] [facility] Comment on above: CORONARY ARTERY BYPASS GRAFT [11934 (CPT )] Start: 05-10-2024 End: 05-10-2024 Anesthesia consultation 05/10/2024 7:30 AM EDT Anesthesia Event [facility] [address] [place] [id number] Gale Garcia, FURNACE [employer]GER - [employer]OCK WORK[employer] [address] [place] [address] [facility] Start: 05-10-2024 End: 05-10-2024 Cabg w/arterial graft three arterial grafts CORONARY ARTERY BYPASS GRAFT CAD (coronary artery disease) 05/10/2024 7:30 AM EDT [facility] Operating [facility] Start: 05-10-2024 End: 05-10-2024 Echo transesophag r-t 2d w/prb img acquisj i&r ECHOCARDIOGRAM, TRANSESOPHAGEAL CAD (coronary artery disease) 05/10/2024 7:30 AM EDT [facility] Start: 05-10-2024 Subsequent hospital visit by physician 05/10/2024 7:30 AM EDT Hospital Encounter [facility] [address] [place] [address] Daysi Velasco MD [address], [address] [place] [address] [facility] Start: 05-04-2024 End: 05-04-2024 Admission to establishment 05/04/2024 11:00 AM EDT Pre-Admission Testing [facility] Pre-Admit Testing [address] [place] [phone] [facility] Pre[facility] Testing Start: 04-24-2024 Patient referral [facility] Work Phone: Start: 04-24-2024 Patient discharge [facility] Start: 10-24-2023 COVID-19 Vaccine ( season) COVID-19 Vaccine ( season) [facility] Start: 10-24-2023 COVID-19 Vaccine ( season) COVID-19 Vaccine ( season) [facility] Start: 10-24-2023 Influenza vaccination Influenza Vaccine (#1) [facility] Start: 10-24-2023 [facility] Start: 12-30-2022 [facility] Start: 05-29-2021 End: 06-12-2021 Influenza virus A and B RNA and SARS-CoV-2 (COVID-19) N gene panel - Respiratory specimen by BRIAN with probe detection COVID WITH FLUA+B, ROUTINE Microbiology Routine Close exposure to COVID-19 virus Expected: 05/29/2021, Expires: 06/12/2021 [facility] Work Phone: Comment on above: Expected: 05/29/2021, Expires: 2 Start: 05-23-2021 End: 06-02-2021 SARS-CoV-2 (COVID-19) RNA [Presence] in Respiratory specimen by BRIAN with probe detection [facility] Work Phone: Comment on above: Expected: 05/23/2021, Expires: 2 Start: 02-22-2021 ADVANCE DIRECTIVE DISCUSSION ADVANCE DIRECTIVE DISCUSSION [facility] Start: 04-05-2019 Zoster Vaccines (2 of 2) Zoster Vaccines (2 of 2) [facility] Start: 04-05-2019 [facility] Start: 12-20-2017 End: 12-20-2017 Patient encounter procedure Appointment [employer] Work Phone: Start: 2017 RSV Immunization for Adults (1 - 1-dose 75+ series) RSV Immunization for Adults (1 - 1-dose 75+ series) [facility] Start: 12-21-2016 End: 12-21-2016 Appointment Appointment [employer] Work Phone: Start: 12-21-2016 End: 12-21-2016 Follow Up Appt 1 year Follow Up Appt 1 year [employer] Work Phone: Start: 12-21-2016 End: 12-21-2016 PFM PFM [employer] Work Phone: Start: 12-20-2015 End: 12-20-2015 Ecg routine ecg w/least 12 lds w/i&r EKG (In office) [employer] Work Phone: Start: 12-20-2015 End: 12-20-2015 Echocardiography Echocardiogram (complete) [employer] Work Phone: Start: 12-20-2015 End: 12-20-2015 Follow Up Appt 1 year Follow Up Appt 1 year [facility] Work Phone: Start: 12-20-2015 End: 12-20-2015 Nuclear stress test -exercise Nuclear stress test -exercise t3n [facility] Work Phone: Start: 12-20-2015 End: 12-20-2015 PFM PFM [employer] Work Phone: Start: 12-20-2015 End: 12-20-2015 Ecg routine ecg w/least 12 lds w/i&r EKG (In office) [facility] Work Phone: Start: 12-20-2015 End: 12-20-2015 Echocardiography Echocardiogram (complete) [employer] Work Phone: Start: 12-20-2015 End: 12-20-2015 Follow Up Appt 1 year Follow Up Appt 1 year [employer] [facility] Work Phone: Start: 12-20-2015 End: 12-20-2015 Nuclear stress test -exercise Nuclear stress test -exercise [employer] [facility] Work Phone: Start: 12-20-2015 End: 12-20-2015 PFM [facility] [employer] [facility] Work Phone: Start: 11-21-2014 End: 11-21-2014 Ecg routine ecg w/least 12 lds w/i&r EKG (In office) [facility] Work Phone: Start: 11-21-2014 End: 11-21-2014 Follow Up Appt 1 year Follow Up Appt 1 year [facility] Work Phone: Start: 11-21-2014 End: 11-21-2014 PF PF [facility] Work Phone: Start: 11-21-2014 End: 11-21-2014 Ecg routine ecg w/least 12 lds w/i&r EKG (In office) [employer] [facility] Work Phone: Start: 11-21-2014 End: 11-21-2014 Follow Up Appt 1 year Follow Up Appt 1 year [employer] [facility] Work Phone: Start: 11-21-2014 End: 11-21-2014 [facility] [employer] [facility] Work Phone: Start: 05-07-2014 End: 05-07-2014 Follow Up Appt 6 months Follow Up Appt 6 months [facility] Work Phone: Start: 05-07-2014 End: 05-07-2014 PFM PFM [facility] Work Phone: Start: 05-07-2014 End: 05-07-2014 Follow Up Appt 6 months Follow Up Appt 6 months [employer] Work Phone: Start: 05-07-2014 End: 05-07-2014 [facility] [employer] [facility] Work Phone: Start: 11-06-2013 End: 11-06-2013 Follow Up Appt 6 months Follow Up Appt 6 months [facility] Work Phone: Start: 11-06-2013 End: 11-06-2013 MM MM [facility] Work Phone: Start: 11-06-2013 End: 11-06-2013 Follow Up Appt 6 months Follow Up Appt 6 months [employer] Work Phone: Start: 11-06-2013 End: 11-06-2013 [facility] [employer] [facility] Work Phone: Start: 05-15-2013 End: 05-15-2013 24 hour holter monitor 24 hour holter monitor [facility] Work Phone: Start: 05-15-2013 End: 05-15-2013 Follow Up Appt 6 months Follow Up Appt 6 months [facility] Work Phone: Start: 05-15-2013 End: 05-15-2013 [facility] Work Phone: Start: 05-15-2013 End: 05-15-2013 24 hour holter monitor 24 hour holter monitor [employer] [facility] Work Phone: Start: 05-15-2013 End: 05-15-2013 Follow Up Appt 6 months Follow Up Appt 6 months [facility] Work Phone: Start: 05-15-2013 End: 05-15-2013 [facility] [employer] [facility] Work Phone: Start: 01-20-2013 Hepatitis B screening URINE ALBUMIN:CREATININE RATIO [facility] Start: 01-20-2013 Hepatitis B surface antibody level LDL CHOLESTEROL [facility] Start: 10-06-2012 End: 10-06-2012 24 hour holter monitor 24 hour holter monitor [facility] Work Phone: Start: 10-06-2012 End: 10-06-2012 Ecg routine ecg w/least 12 lds w/i&r EKG (In office) [facility] Work Phone: Start: 10-06-2012 End: 10-06-2012 Echocardiography Echocardiogram (complete) [facility] Work Phone: Start: 10-06-2012 End: 10-06-2012 Follow Up Appt 6 months Follow Up Appt 6 months [facility] Work Phone: Start: 10-06-2012 End: 10-06-2012 Nuclear stress test -exercise Nuclear stress test -exercise [facility] Work Phone: Start: 10-06-2012 End: 10-06-2012 PFM PF [facility] Work Phone: Start: 10-06-2012 End: 10-06-2012 24 hour holter monitor 24 hour holter monitor [employer] Work Phone: Start: 10-06-2012 End: 10-06-2012 Ecg routine ecg w/least 12 lds w/i&r EKG (In office) [facility] Work Phone: Start: 10-06-2012 End: 10-06-2012 Echocardiography Echocardiogram (complete) [employer] Work Phone: Start: 10-06-2012 End: 10-06-2012 Follow Up Appt 6 months Follow Up Appt 6 months [employer] Work Phone: Start: 10-06-2012 End: 10-06-2012 Nuclear stress test -exercise Nuclear stress test -exercise [facility] Work Phone: Start: 10-06-2012 End: 10-06-2012 PFM PFM [employer] Work Phone: Start: 07-20-2012 Hemoglobin A1c/Hemoglobin.total in Blood HBA1C [facility] Start: 01-07-2012 Hepatitis C antibody, confirmatory test DILATED RETINAL EXAM [facility] Start: 2007 PNEUMOVAX AGE 65 AND OVER WITH 5YR LOOKBACK (#1) PNEUMOVAX AGE 65 AND OVER WITH 5YR LOOKBACK (#1) [facility] Start: 1992 SHINGRIX VACCINE (1 of 2) SHINGRIX VACCINE (1 of 2) [facility] Start: 1992 Zoster Vaccines (1 of 2) Zoster Vaccines (1 of 2) [facility] Start: 1961 DTaP/Tdap/Td Vaccines (1 - Tdap) DTaP/Tdap/Td Vaccines (1 - Tdap) [facility] Start: 1961 Pneumococcal Vaccine: 50+ Years (1 of 2 - PCV) Pneumococcal Vaccine: 50+ Years (1 of 2 - PCV) [facility] Start: 1961 Urine microalbumin profile DTAP,TDAP,TD (1 - Tdap) [facility] Start: 1961 [facility] Start: 1960 ANNUAL PCP TEAM CHRONIC DISEASE VISIT ANNUAL PCP TEAM CHRONIC DISEASE VISIT [facility] Start: 1960 Diabetes: Estimated Glomerular Filtration Rate for Kidney [facility] Diabetes: Estimated Glomerular Filtration Rate for Kidney Health [facility] Start: 1960 Diabetes: Urine Albumin-Creatinine Ratio for Kidney Health Diabetes: Urine Albumin-Creatinine Ratio for Kidney Health [facility] Start: 1960 [facility] Start: 1954 Adult depression screening assessment DEPRESSION SCREENING [facility] Start: 1954 [facility] Start: 1952 3 comp foot exam completed DIABETIC FOOT EXAM [facility] Start: 1942 Medicare Annual Wellness (AWV) Medicare Annual Wellness (AWV) [facility] Start: 1942 [facility] Anion gap in Serum o r Plasma [facility] Anion gap in Serum o r Plasma [facility] Anion gap in Serum o r Plasma [facility] Anion gap in Serum o r Plasma [facility] BUN/Creatinine ratio [facility] BUN/Creatinine ratio [facility] BUN/Creatinine ratio [facility] BUN/Creatinine ratio [facility] Calcium [Mass/volume ] in Serum or Plasma [facility] Calcium [Mass/volume ] in Serum or Plasma [facility] Calcium [Mass/volume ] in Serum or Plasma [facility] Calcium [Mass/volume ] in Serum or Plasma [facility] Carbon dioxide, tota l [Moles/volume] in Central venous blood [facility] Carbon dioxide, tota l [Moles/volume] in Central venous blood [facility] Carbon dioxide, tota l [Moles/volume] in Central venous blood [facility] Carbon dioxide, tota l [Moles/volume] in Central venous blood [facility] Catheterization of l eft heart [facility] CBC W Auto Different ial panel - Blood [facility] Comprehensive metabo lic 2000 panel - Serum or Plasma [facility] Creatinine [Mass/vol ume] in Serum or Plasma [facility] Creatinine [Mass/vol ume] in Serum or Plasma [facility] Creatinine [Mass/vol ume] in Serum or Plasma [facility] Creatinine [Mass/vol ume] in Serum or Plasma [facility] Erythrocyte mean corpuscular volume determination [facility] Erythrocyte mean corpuscular volume determination [facility] Erythrocyte mean corpuscular volume determination [facility] Erythrocyte mean corpuscular volume determination [facility] Glucose [Mass/volume ] in Serum or Plasma [facility] Glucose [Mass/volume ] in Serum or Plasma [facility] Glucose [Mass/volume ] in Serum or Plasma [facility] Glucose [Mass/volume ] in Serum or Plasma [facility] Hematocrit [Volume Fraction] of Blood [facility] Hematocrit [Volume Fraction] of Blood [facility] Hematocrit [Volume Fraction] of Blood [facility] Hematocrit [Volume Fraction] of Blood [facility] Hemoglobin [Mass/vol ume] in Blood [facility] Hemoglobin [Mass/vol ume] in Blood [facility] Hemoglobin [Mass/vol ume] in Blood [facility] Hemoglobin [Mass/vol ume] in Blood [facility] Leukocytes [#/volume ] in Blood [facility] Leukocytes [#/volume ] in Blood [facility] Leukocytes [#/volume ] in Blood [facility] Leukocytes [#/volume ] in Blood [facility] Lipid 1996 panel - S trae or Plasma [facility] Mean corpuscular hemoglobin concentration determination [facility] Mean corpuscular hemoglobin concentration determination [facility] Mean corpuscular hemoglobin concentration determination [facility] Mean corpuscular hemoglobin concentration determination [facility] Mean corpuscular hemoglobin determination [facility] Mean corpuscular hemoglobin determination [facility] Mean corpuscular hemoglobin determination [facility] Mean corpuscular hemoglobin determination [facility] Measurement of renal function [facility] Measurement of renal function [facility] Measurement of renal function [facility] Measurement of renal function [facility] Neutrophil count [facility] Neutrophil count [facility] Neutrophil count [facility] Neutrophil count [facility] Neutrophil percent differential count [facility] Neutrophil percent differential count [facility] Neutrophil percent differential count [facility] Neutrophil percent differential count [facility] Patient Education [facility] Work Phone: Patient referral [facility] Work Phone: Platelets [#/volume] in Blood [facility] Platelets [#/volume] in Blood [facility] Platelets [#/volume] in Blood [facility] Platelets [#/volume] in Blood [facility] Potassium measurement [facility] Potassium measurement [facility] Potassium measurement [facility] Potassium measurement [facility] End: 05-10-2024 Prothrombin time (PT) in Blood by Coagulation assay [employer] Work Phone: Red blood cell count [facility] Red blood cell count [facility] Red blood cell count [facility] Red blood cell count [facility] Red cell distributio n width determination [facility] Red cell distributio n width determination [facility] Red cell distributio n width determination [facility] Red cell distributio n width determination [facility] Serum chloride measurement [facility] Serum chloride measurement [facility] Serum chloride measurement [facility] Serum chloride measurement [facility] Sodium measurement [facility] Sodium measurement [facility] Sodium measurement [facility] Sodium measurement [facility] Urea nitrogen [Mass/volume] in Serum or Plasma [facility] Urea nitrogen [Mass/volume] in Serum or Plasma [facility] Urea nitrogen [Mass/volume] in Serum or Plasma [facility] Urea nitrogen [Mass/volume] in Serum or Plasma [facility] Immunizations Immunization Date Immunization Notes Care Provider [facility] 01-07-2024 Pneumococcal Vaccine PCV20 (Prevnar 20) Dr. Fredis Moon MD Work Phone: [facility] 11-24-2023 RSV Adult Recombinan t (Arexvy) Dr. Fredis Moon MD Work Phone: [facility] 12-29-2022 RSV Adult Recombinan t (Arexvy) Dr. Fredis Moon MD Work Phone: [facility] 12-02-2022 influenza virus vaccine, unspecified formulation Ach 1 [facility] 12-17-2020 COVID-19 vaccine, fu ll dose (MODERNA) Yoselin Khan [employer] Work Phone: [facility] 03-05-2008 influenza virus vaccine, unspecified formulation Alix Valle [employer] Work Phone: [facility] Work Phone: Payers Date Payer Category Payer Medicare [id number] 2023 Self-pay [id number] 2021 Medicare supplementa l policy (as second payer) [id number] 2021 [facility] [id number] 2016 Private Health Insurance [id number] 2007 Medicare [id number] 2007 Medicare [id number] 2007 Medicare MEDICARE MEDICAR E A AND B [id number] 2007-Present [phone] [address] [address] [place] [address] Medicare [id number] Unknown [id number] Unknown [id number] 2.16.840.1.218397.3.579.2. 462 Unknown [id number] 2.16.840.1.497463.3.579.2. 462 Unknown [id number] 2.16.840.1.136040.3.579.2. 462 Unknown [id number] 2.16.840.1.972595.3.579.2. 462 Unknown [id number] 2.16.840.1.414946.3.579.2. 462 Unknown [id number] 2.16.840.1.381564.3.579.2. 462 Unknown [id number] 2.16.840.1.297655.3.579.2. 462 Unknown [id number] 2.16.840.1.939718.3.579.2. 462 Unknown [id number] 2.16.840.1.531133.3.579.2. 462 Unknown [id number] 2.16.840.1.103467.3.579.2. 462 Unknown [id number] 2.16.840.1.509261.3.579.2. 462 Unknown [id number] 2.16.840.1.286224.3.579.2. 462 Unknown [id number] 2.16.840.1.830519.3.579.2. 462 Unknown [id number] 2.16.840.1.727855.3.579.2. 462 Unknown [id number] 2.16.840.1.463219.3.579.2. 462 Unknown [id number] 2.16.840.1.659705.3.579.2. 462 Unknown [id number] 2.16.840.1.359677.3.579.2. 462 Unknown [id number] 2.16.840.1.461832.3.579.2. 462 Unknown [id number] 2.16.840.1.564784.3.579.2. 462 Unknown [id number] 2.16.840.1.243936.3.579.2. 462 Unknown [id number] 2.16.840.1.096217.3.579.2. 462 Unknown [id number] 2.16.840.1.739594.3.579.2. 462 Unknown [id number] 2.16.840.1.305719.3.579.2. 462 Unknown [id number] 2.16.840.1.131089.3.579.2. 462 Unknown [id number] 2.16.840.1.004723.3.579.2. 462 Unknown [id number] 2.16.840.1.739784.3.579.2. 462 Unknown [id number] 2.16.840.1.349577.3.579.2. 462 Unknown [id number] 2.16.840.1.638331.3.579.2. 462 Unknown [id number] 2.16.840.1.913575.3.579.2. 462 Unknown [id number] 2.16.840.1.945533.3.579.2. 462 Unknown [id number] 2.16.840.1.656071.3.579.2. 462 Social History Date Type Detail Facility Start: 01-06-2021 End: 04-05-2023 Tobacco smoking status COIS Unknown if ever smoked [facility] Start: 1940 Sex Assigned At Male W [facility] Start: 05-04-2024 End: 09-08-2024 Tobacco smoking status NHIS Ex-smoker [facility] Start: 05-23-2021 End: 05-29-2021 Alcohol intake Current non-drinker of alcohol (finding) [facility] Start: 1940 Sex Assigned At Not on file C [facility] Start: 05-13-2021 End: 05-23-2021 Exposure to SARS-CoV-2 (event) Yes [facility] Work Phone: Start: 05-19-2021 End: 05-29-2021 Exposure to SARS-CoV-2 (event) Not sure [facility] Work Phone: Start: 02-12-2013 None [facility] Start: 02-12-2013 With Family [facility] Start: 07-15-2017 Cigarettes [facility] Start: 04-25-2024 Tobacco smoking stat [facility] Never smoked tobacco [facility] Start: 04-25-2024 End: 05-04-2024 Tobacco use and exposure Smokeless tobacco non-user [facility] Start: 04-25-2024 End: 07-05-2024 Alcoholic beverage intake Lifetime non-drinker (finding) [facility] Start: 04-25-2024 End: 07-31-2024 History of Social function [facility] Work Phone: Start: 04-25-2024 End: 07-31-2024 Tobacco use panel [facility] Work Phone: Start: 04-24-2024 End: 06-08-2024 Sex Male (finding) [facility] Start: [birth year]-22-1960 History of tobacco use Current smoke r [facility] Start: 02-22-1962 History of tobacco use Cigarette Smo ker [facility] Has the [employer] [place], oil, or water company threatened to shut off services in your home in past 12Mo No [facility] Work Phone: How often to you hav e a drink containing alcohol? Never [facility] How many standard drinks containing alcohol do you have on a typical day? Patient does not drink [facility] How hard is it for y ou to pay for the very basics like food, housing, medical care, and heating Not very hard [facility] Do you feel stress - tense, restless, nervous, or anxious, or unable to sleep at night because your mind is troubled all the time - these days [OSQ] Only a little [facility] (I/We) worried wheth er (my/our) food would run out before (I/we) got money to buy more. Never true [facility] Are you now , , , , never or living with a partner? [facility] Medical Equipment Procedure Code Equipment Code Equipment Origin al Text Equipment Identifier Dates INSULIN PEN NEEDLE Start: 05-15-2011 End: 10-06-2012 Comment on above: CHECK BLOOD SUGARS 3 -4 TIMES DAILY CLIP,HEMADALIDSTUART RINALDI [employer] FDA Start: 07-14-2017 CLIP,HEMADALIDSTUART RINALDI [employer] FDA Start: 07-14-2017 CLIP,HEMADALIDSTUART RINALDI WE FDA Start: 07-14-2017 CLIP,HEMADALIDSTUART WE FDA Start: 07-14-2017 CLIP,HEMADALIDSTUART [employer] FDA Start: 07-14-2017 CLIP,HEMADALIDSTUART RINALDI [employer] FDA Start: 07-14-2017 CLIP,HEMADALIDSTUART WE FDA Start: 07-14-2017 CLIP,HEMADALIDSTUART [employer] FDA Start: 07-14-2017 CLIP,HEMADALIDSTUART LG WE FDA Start: 07-14-2017 CLIP,HEMADALIDSTUART RINALDI WE FDA Start: 07-14-2017 CLIP,HEMAADLIDSTUART RINALDI WE FDA Start: 07-14-2017 CLIP,HEMADALIDSTUART LG WE FDA Start: 07-14-2017 CLIP,HEMADALIDSTUART RINALDI WE FDA Start: 07-14-2017 CLIP,HEMADALIDSTUART LG [employer] FDA Start: 07-14-2017 CLIP,HEMADALIDSTUART LG WE FDA Start: 07-14-2017 CLIP,HEMADALIDSTUART LG WE FDA Start: 07-14-2017 CLIP,HEMOLOSTUART LG WE FDA Start: 07-14-2017 CLIP,HEMOLOSTUART LG [employer] FDA Start: 07-14-2017 CLIP,HEMOLOSTUART LG WE FDA Start: 07-14-2017 CLIP,HEMOLOSTUART LG WE FDA Start: 07-14-2017 CLIP,HEMADALIDSTUART LG WE FDA Start: 07-14-2017 CLIP,HEMOLOSTUART LG WE FDA Start: 07-14-2017 CLIP,HEMOLOSTUART LG [employer] FDA Start: 07-14-2017 CLIP,HEMOLOCK LG [employer] FDA Start: 07-14-2017 CLIP,HEMOLOCK LG [employer] FDA Start: 07-14-2017 CLIP,HEMOLOCK LG [employer] FDA Start: 07-14-2017 CLIP,HEMOLOCK LG [employer] FDA Start: 07-14-2017 CLIP,HEMOLOCK LG [employer] FDA Start: 07-14-2017 CLIP,HEMOLOCK LG [employer] FDA Start: 07-14-2017 CLIP,HEMOLOCK LG [employer] FDA Start: 07-14-2017 CLIP,HEMOLOCK LG [employer] FDA Start: 07-14-2017 CLIP,HEMOLOCK LG [employer] FDA Start: 07-14-2017 CLIP,HEMOLOCK LG [employer] FDA Start: 07-14-2017 CLIP,HEMOLOCK LG [employer] FDA Start: 07-14-2017 CLIP,HEMOLOCK LG [employer] FDA Start: 07-14-2017 CLIP,HEMOLOCK LG [employer] FDA Start: 07-14-2017 CLIP,HEMOLOCK LG [employer] FDA Start: 07-14-2017 CLIP,HEMOLOCK LG [employer] FDA Start: 07-14-2017 CLIP,HEMOLOCK LG [employer] FDA Start: 07-14-2017 CLIP,HEMOLOCK LG [employer] FDA Start: 07-14-2017 CLIP,HEMOLOCK LG [employer] FDA Start: 07-14-2017 CLIP,HEMOLOCK LG [employer] FDA Start: 07-14-2017 CLIP,HEMOLOCK LG [employer] FDA Start: 07-14-2017 CLIP,HEMOLOCK LG [employer] FDA Start: 07-14-2017 CLIP,HEMOLOCK LG [employer] FDA Start: 07-14-2017 CLIP,HEMOLOCK LG [employer] FDA Start: 07-14-2017 CLIP,HEMOLOCK LG [employer] FDA Start: 07-14-2017 CLIP,HEMOLOCK LG [employer] FDA Start: 07-14-2017 CLIP,HEMOLOCK LG [employer] FDA Start: 07-14-2017 CLIP,HEMOLOCK LG [employer] FDA Start: 07-14-2017 CLIP,HEMOLOCK LG [employer] FDA Start: 07-14-2017 CLIP,HEMOLOCK LG [employer] FDA Start: 07-14-2017 CLIP,HEMOLOCK LG [employer] FDA Start: 07-14-2017 CLIP,HEMOLOCK LG [employer] FDA Start: 07-14-2017 CLIP,SHELIA VILLAGOMEZ FDA Start: 07-14-2017 CLIP,SHELIA VILLAGOMEZ FDA Start: 07-14-2017 CLIP,SHELIA VILLAGOMEZ FDA Start: 07-14-2017 CLIP,SHELIA VILLAGOMEZ FDA Start: 07-14-2017 CLIP,SHELIA VILLAGOMEZ FDA Start: 07-14-2017 CLIP,SHELIA VILLAGOMEZ FDA Start: 07-14-2017 CLIP,SHELIA VILLAGOMEZ FDA Start: 07-14-2017 CLIP,SHELIA VILLAGOMEZ FDA Start: 07-14-2017 Goals Date Patient Goal Desired Activity /State Functional Status Date Assessment Result Facility 07-31-2024 Patient Health Questionnaire 2 item (PHQ-2) [Reported] [facility] 07-31-2024 Total score [AUDIT-C] 0 08/01/19 2:43 PM EDT Lilliana Reed LISW [facility] 06-14-2024 Functional status Bedrest [facility] Work Phone: 06-07-2024 Functional status Chair [facility] Work Phone: 06-03-2024 Functional status Tolerates Activity Well [facility] Work Phone: 05-22-2024 Functional status Chair [facility] Work Phone: 05-21-2024 Functional status Tolerates Activity Well [facility] Work Phone: [facility] Mental Status Date Assessment Result Facility 09-08-2024 Cognitive function Voice/Name [facility] Work Phone: 06-14-2024 Cognitive function Voice/Name [facility] Work Phone: 06-13-2024 Cognitive function Demonstrates ability to follow instructions/comprehend [facility] Work Phone: 06-07-2024 Cognitive function Voice/Name [facility] Work Phone: 06-05-2024 Cognitive function Demonstrates ability to follow instructions/comprehend [facility] Work Phone: 05-22-2024 Cognitive function Voice/Name [facility] Work Phone: 05-19-2024 Cognitive function Demonstrates ability to follow instructions/comprehend [facility] Work Phone: Clinical Notes 05-14-2016 to 10-02-2024 Note Date & Type Note Facility 10-02-2024 Progress note [facility] 10-02-2024 Progress note Note Date/Time October 02, 2024 12:25pm [facility] [address] [place] [address] OFFICE VISIT Date of Service: 10/02/24 MR#: [id number] Acct: [id number] Name: Joaquin THRASHER Rep #: [id number] : 1940 Provider: KEVIN Regalado Age/Sex: 84/M Location: [facility] Status: Signed HPI HPI History of Present Illness Details: This is an 84 year old male who presents to the office today for a cardiovascular follow-up visit. He has a previous history of minimal coronary artery disease diagnosed on coronary angiography in 2001, mild carotid artery disease, dyslipidemia diabetes mellitus and parkinsonism. Per patient, he has had some burning sensation climbing stairs along with shortness of breath. He underwent a stress test in March 2024, which was positive. He underwent a cardiac catheterization on 04/24/2024 which demonstrated 50% stenosis in his distal LMCA, 65 to 70% stenosis in his proximal [employer] proximal OM1, filling retrogradely via collaterals from OM 2; 80% stenosis proximal in his proximal LCx, and 70 to 80% stenosis in his proximal to mid RCA. He underwent Bypass surgery on May 10. Will obtain those records. He denies chest, arm, jaw, or neck discomfort. He denies palpitations. He acknowledges bilateral lower extremity edema. He denies shortness of breath activity, shortness of breath at rest, orthopnea, cough, or PND. He denies lightheadedness, dizziness, near-syncope, or syncope. He denies weakness or fatigue. Intake Vital Signs 08/03/24 07:09 09/29/24 08:14 10/02/24 11:34 Height 5 ft 6 in 5 ft 6 in 5 ft 6 in Weight: 205 lb BMI 33.0 BP 97/52 L Blood Pressure Location Lt brachial Position Sitting Respiration 18 Pulse 64 Pulse Source Monitor Intake Visit Reasons: 3 M FU Assessment Consultant Required: No Accompanied by: Is patient in pain?: No Allergies rosuvastatin (From Crestor) Adverse Reaction (Severe, Verified 10/02/24 11:38) Flu like symptoms adhesive tape Adverse Reaction (Verified 10/02/24 11:38) skin tears Medications ?Medication ?Instructions ?Recorded ?Confirmed ?Type empagliflozin 25 mg tablet 25 mg PO DAILY 12/20/1701/16 History (Jardiance) carbidopa 25 mg-levodopa 100 mg 1 tab PO TID Parkinson s 01/12/20 10/02/24 History tablet atorvastatin 10 mg tablet 40 mg PO QDAY cholesterol 10/02/24 History ferrous sulfate 325 mg (65 mg 325 mg PO QODAY iron sup plement 05/16/24 10/02/24 History iron) tablet (FeroSul) metoprolol tartrate 25 mg tablet 12.5 mg (1/2 x 25 mg) PO BID 30 06/06/24 10/02/24 Rx days #30 tabs insulin glargine 100 45 unit subcut QAM diabetes 07/06/24 10/02/24 History unit-lixisenatide 33 mcg/mL subcutaneous pen (Soliqua 100/33) meclizine 12.5 mg tablet 12.5 mg PO TID PRN dizziness #10 09/08/24 10/02/24 Rx tabs aspirin 81 mg tablet,delayed 81 mg PO QDAY blood thinn er 10/02/24 10/02/24 History release (Adult Aspirin Regimen) metformin 1,000 mg tablet 1,000 mg PO BID 10/02/2401/16 History mirabegron 50 mg tablet,extended 50 mg PO QDAY 5 10/02/24 History release 24 hr (Myrbetriq) propylene glycol 0.6 % eye drops 1 drp ophthalmic (eye ) QDAY PRN 10/02/24 10/02/24 History (Lubricant Eye (propylene glycol)) Ejection fraction %: 65 Have you fallen in the past year?: Yes (3- tripped d/t neuropathy.) PFSH Medical History (Updated 09/16/24 @ 00:00 by Aldo Levy) Carotid artery disease Malignant neoplasm of prostate Mixed hyperlipidemia Hepatitis B GERD (gastroesophageal reflux disease) Neuropathy Essential hypertension Syncope Wide-complex tachycardia Premature ventricular contraction Premature atrial contractions Sinus bradycardia Atherosclerotic heart disease of [place] coronary artery without angina pectoris Diabetes type 2, controlled Normal pressure hydrocephalus Obesity Asymptomatic PVCs Dyslipidemia HTN (hypertension) Sleep apnea, obstructive Surgical History (Updated 10/02/24 @ 11:47 by Tori Yan LPN) Status post three vessel coronary artery bypass History of prostatectomy History of cataract surgery History of cholecystectomy History of tonsillectomy Family History Father COPD (chronic obstructive pulmonary disease) CAD (coronary artery disease) Mother CVA (cerebral vascular accident) Brother CAD (coronary artery disease) Myocardial infarction, Onset Age: 61 Social History household members: spouse Smoking Status: Former smoker alcohol intake: never substance use type: does not use ROS Const Const: Negative for fatigue or weakness Eyes Eyes: Positive for other (occ foggy-sometimes r/t high sugar); Negative for change in vision ENT ENT: Positive for balance problems; Negative for dizziness Cardio Chest Pain: No Palpitations: No Edema: Bilateral Muscle aches with walking: None Resp Respiratory: Negative for SOB with activity, SOB at rest or SOB orthopnea\SOB lying down GI GI: Negative nausea or heartburn : Negative for hematuria or frequent nighttime urination/ nocturia Musc Musc: Positive for balance problems Skin Skin: Negative non-healing lesions or rash Neuro Neuro: Negative for dizziness, lightheadedness, near syncope, syncope or weakness Endo Endo: Negative for fatigue Allergy Allergy/Immunology: Negative for rash Cardiology Exam Const Appearance: cooperative, healthy appearing, comfortable and no acute distress Nutritional Appearance: well nourished and obese Orientation: alert, awake and oriented x3 Head Head: normal to inspection Ears: hearing grossly normal bilaterally Nose: external nose normal Face and Sinus: face symmetric Mouth: moist mucous membranes Eyes General: appearance normal, both eyes and all related structures Eyelids: eyelids normal EOM: EOM intact bilaterally Neck Neck: normal visual inspection and no JVD Carotids: normal carotid upstroke Chest Chest inspection: normal inspection of the chest, symmetric chest movement and normal respiratory effort; Negative cough Auscultation: Bilateral: Clear to Auscultation Cardio Rate: regular rate Rhythm: regular rhythm Heart sounds: S1 normal and S2 normal; Negative rub, gallop or murmur GI GI: normal to inspection and obese Neuro General: patient alert, patient awake, patient oriented x3 and CN's II-XI intactbilaterally Skin Skin: no rashes or lesions noted Extremities Pulses: Normal: Right Posterior Tibial Pulse, Left Posterior Tibial Pulse, RightRadial Pulse and Left Radial Pulse Lower Extremity Edema: None: Bilateral Psych Psychological: normal affect Supplemental Info Supplemental Information Echo Complete 03/2024 Interpretation Summary Mild concentric left ventricular hypertrophy. The left ventricular ejection fraction is 65 %. Stage 1 diastolic dysfunction. The left atrium is mildly enlarged. Moderate mitral annular calcification. Mild-Moderate (1-2+) mitral valve insufficiency. Moderately calcified right coronary cusp of the aortic valve. Mild aortic valve stenosis. Echocardiogram 12/03/2022: Interpretation Summary Normal LV size. Left ventricular systolic function is normal. The estimated ejection fraction is 60 %. Stage 1 diastolic dysfunction. Bubble contrast study negative for right to left interatrial shunt. Cardiac catheterization 04/24/2024: CONCLUSIONS 50% distal LMCA 65-70% Prox [employer] Prox OM1, filling retrogradely via collaterals from OM2; 80% Prox LCX 70-80% Prox/Mid RCA RECOMMENDATIONS Surgery consult for coronary revascularization Stress Test Report Date: 04/17/2024 Procedure: Pharmacologic stress nuclear imaging study Indications: Chest pain Consent: Per the patient Procedure: The patient underwent pharmacologic (Regadenoson 0.4mg ) evaluation with a peak heart rate of 76 beats per minute (55%predicted maximal heart rate) and a peak blood pressure of 118 over mmHg. The baseline ECG demonstrated sinus rhythm with nonspecific intraventricular conduction delay. The peak pharmacologic ECG demonstrated no ischemic changes. There were no cardiac dysrhythmias pretest, during pharmacologic infusion, or recovery. There was no complaint of chest discomfort during pharmacologic infusion or recovery. The patient was injected with 13.9 millicuries of technetium 99m Cardiolite and subsequently rest SPECT Cardiolite nuclear imaging was obtained in the horizontal long, vertical long, and short axis views. The patient underwent pharmacologic (Regadenoson) evaluation. The patient was injected with 43.6 millicuries of technetium 99m Cardiolite and subsequently stress SPECT Cardiolite nuclear imaging was obtained in the horizontal long, vertical long, and short axis views. A gated Cardiolite study at peak stress was obtained. The examination was stopped secondary to completion of protocol. Rest and stress SPECT Cardiolite nuclear imaging status post realignment, normalization, and attenuation correction demonstrate a moderate size reversibleperfusion defect of the lateral wall of mild intensity. There is end systolic thickening and brightening. The gated Cardiolite study demonstrates myocardial thickening and inward wall motion. The reported LVEF is 63%. Impression: 1. Pharmacologic (Regadenoson) evaluation 2. Peak pharmacologic ECG with no ischemic changes. 3. There were no cardiac dysrhythmias pretest, during pharmacologic infusion, or recovery. 5. Moderate size reversible perfusion defect of the lateral wall suggestive of ischemia. 6. The gated Cardiolite study reports an LVEF of 63%. Stress Test Report 02-01-2020: Procedure: Pharmacologic stress nuclear imaging study Indications: CAD Consent: Per the patient Procedure: The patient underwent pharmacologic (Regadenoson) evaluation with a peak heart rate of 81 beats per minute (56%predicted maximal heart rate) and a peak blood pressure of 130/68 mmHg. The baseline ECG demonstrated sinus bradycardia; right bundle branch block pattern . The peak pharmacologic ECG demonstrated no obvious ECG changes. There were no cardiac dysrhythmias pretest, during pharmacologic infusion, or recovery. There was no complaint of chest discomfort during pharmacologic infusion or recovery. The examination was discontinued secondary to completion of protocol. Impression: 1. Pharmacologic (Regadenoson) evaluation 2. Peak pharmacologic ECG with no obvious ECG changes. 3. There were no cardiac dysrhythmias pretest, during pharmacologic infusion, or recovery. 4. Nuclear images pending Myocardial perfusion imaging study: Technique: The patient was injected with 14.4 millicuries of technetium 99m Cardiolite and subsequently rest SPECT Cardiolite nuclear imaging was obtained in the horizontal long, vertical long, and short axis views. The patient underwent pharmacologic (Regadenoson) evaluation with a peak heart rate of 81 beats per minute (56% percent predicted maximal heart rate) and a peak blood pressure of 130/68 mmHg. The patient was injected with 44.3 millicuries of technetium 99m Cardiolite and subsequently stress SPECT Cardiolite nuclear imaging was obtainedin the horizontal long, vertical long, and short axis views. A gated Cardiolitestudy at peak stress was obtained. Interpretation: Rest and stress SPECT Cardiolite nuclear imaging status post realignment, normalization, and attenuation correction demonstrate relative uniform tracer uptake and myocardial perfusion appearing within normal limits. There is end systolic thickening and brightening. The gated Cardiolite study demonstrates myocardial thickening and inward wall motion. The reported LVEF is 75%. Impression: 1. Rest and stress SPECT Cardiolite nuclear imaging demonstrate relative uniform tracer uptake and myocardial perfusion appearing within normal limits. 2. The gated Cardiolite study reports an LVEF of 75%. Cardiac catheterization: 06/24/2001: [facility] FINAL IMPRESSION: 1. Elevated left ventricular end diastolic pressure pre and postangiographic dyeload compatible with decreased diastolic compliance/diastolic dysfunction. 2) [...] EPISODES OF BORDERLINE 1ST DEGREE AV BLOCK- NE.22-.24 MINIMUM HR 445PM AT 501:53 AM WHILE ASLEEP. AVERAGE HR62 BPM MAXIMUM HR 109 BPM AT 2:09:04 PM, NO ACTIVITY OR SYMPTOM REdORDED. RARE ISOLATED PREMATURE ATRIAL COMPLEXES. 4 ATRIAL COUPLETS. NO RUNS NOTED. RAREISOLATED PREMATURE VENTRICULAR COMPLEXES. NO RUNS NOTED. SEVERAL SYMPTOMS DOCUMENTED IN 24 HOUR HOLTER DIARY. ?FLUTTERING? WAS RECORDED ON TWO OCCASIONS- MONITOR SHOWED NORMAL SINUS RHYTHM RATE 63-65RPM WITH ISOLATED PREMATURE VENTRICULAR COMPLEXES. ALSO NOTED BEING DIZZY- MONITOR SHOWED NORMAL SINUS RHYTHM RATE [address]PM [address]ICS OR [address] CHANGES. SHORTNESS OF BREATH DOCUMENTED- MONITOR SHOWED SINUS BRADYCARDIA RATE 45 BPM WITH BORDERLINE 1ST DEGREE AV BLOCK WITHOUT ECTOPICS OR ST CHANGES. Carotid Duplex Ultrasound 03/2024 Interpretation Summary Mild (<50%) stenosis right extracranial internal carotid. Mild (<50%) stenosis left extracranial internal carotid. Patent and antegrade vertebrals bilaterally. Carotid duplex study: 01/10/2021 Interpretation Summary Irregular calcific plaque right proximal internal carotid artery although with less than 50% stenosis based upon velocity. Less than 50% stenosis right external carotid artery Minimal irregular calcific plaque proximal left internal carotid artery with less than 50% stenosis Less than 50% stenosis left external carotid artery No velocity elevation identified within the left distal common carotid artery onthis exam Patent and antegrade vertebral arteries bilaterally No evidence of disease progression since his previous carotid duplex exam of 03/09/2018 Labs: LDL Cholesterol -4 mg/dL (0-130) L HDL Cholesterol 42 mg/dL (40-) Cholesterol 115 mg/dL (<=200) Triglycerides 179 mg/dL (-199) Diagnostics: Electrocardiogram Echocardiogram Stress Test Stress Test Nuclear Medicine Cardiac Catheterization Chest X-Ray Abdomen/Pelvis CT Carotid Duplex Venous Doppler Study Pulmonary: No Data to Display Past Visits: Cardiology Visit 10/02/24 Assessment and Plan Assessment and Plan (1) Atherosclerotic heart disease of [place] coronary artery without angina pectoris: Status: Chronic Qualifiers: [place] vs. transplanted heart: [place] heart Qualified Code(s): I25.10 -Atherosclerotic heart disease of [place] coronary artery without angina pectoris Plan: He is status post CABG on 05/10/2024. This appears stable. We will continue to monitor and not make any medication regimen changes. We will continue to promote risk factor and lifestyle modification. (2) Diastolic dysfunction: Status: Chronic Plan: His echocardiogram from 04/17/2024 demonstrated ejection fraction of 65%, and stage I diastolic dysfunction. This appears stable. He appears to be euvolemic. Will continue to monitor blood pressure. No changes made. (3) Mixed hyperlipidemia: Status: Chronic Plan: Lipid panel on 09/07/2024 showed total cholesterol: 115, HDL: 42, triglycerides: 179, and LDL: 37. He was reminded of LDL goal of 70 and below for secondary prevention and as a diabetic closer to 50?55. He does have an allergy to Crestor therapy. He will continue atorvastatin. Will continue to monitor. (4) Carotid artery disease: Status: Chronic Plan: His most recent carotid duplex from 04/17/2024 demonstrated mild, less than 50% stenosis bilaterally. He will continue current medical therapy and we will continue to monitor. (5) Anemia: Status: Acute Plan: Hemoglobin evaluation on 09/08/2024 was noted be 14.1. (6) Type 2 diabetes mellitus with hyperglycemia: Status: Acute Plan: He is on Jardiance, Insulin, and metformin. This was noted to be 7.1% in August 2024. He was encouraged to continue to follow with primary care provider. Medications: Changed From aspirin (Adult Aspirin Regimen) 325 mg PO QDAY blood thinner To aspirin (Adult Aspirin Regimen) 81 mg PO QDAY blood thinner Plan Details Follow Up: 6 Months (AR) Coding Level of Care Code Off vis,est,level 4 Diagnoses Atherosclerosis of [place] coronary artery of [place] heart without angina pectoris I25.10 [place] vs. transplanted heart: [place] heart Diastolic dysfunction I51.89 Mixed hyperlipidemia E78.2 Carotid artery disease I77.9 Anemia D64.9 Type 2 diabetes mellitus with hyperglycemia E11.65 Coding Level of Care Code Off vis,est,level 4 Diagnoses Atherosclerosis of [place] coronary artery of [place] heart without angina pectoris I25.10 [place] vs. transplanted heart: [place] heart Diastolic dysfunction I51.89 Mixed hyperlipidemia E78.2 Carotid artery disease I77.9 Anemia D64.9 Type 2 diabetes mellitus with hyperglycemia E11.65 Clinical Quality Measures Falls Risk Screening/Assistive Devices Have you fallen in the past year?: Yes (3- tripped d/t neuropathy.) Cardiac Ejection fraction %: 65 10/02/24 1225 <Electronically signed by Wagner BROWN> Date _ Wagner BROWN Cosigner Signature: Date (if applicable) CC: Dr. Montana Jones MD; Dr. Fredis Moon MD ~ [facility] [employer] Work Phone: [phone]) 531-398307-18-2025 Discharge summary [facility] Medical Records Department [address] [place] [address] Emergency Department Summary 09/08/24 MR#: [id number] Acct: [id number] Name: Joaquin THRASHER Rep #:[id number] : 1940 84 From: Tiara Clayton O PCP: Dr. Fredis Moon MD Status:REG E R Location: ED HPI History of Present Illness Chief Complaint: Dizziness Informant: patient Narrative Narrative: Patient is an 84-year-old male with history of type 2 diabetes mellitus, coronary artery disease (status post CABG April 2024), neuropathy, Parkinson's disease, hypertension, hyperlipidemia, normal pressure hydrocephalus as well as peripheral vertigo (follows with Dr. Krishnamurthy) presenting with abnormal blood pressure and heart rate at home as well as dizziness. Patient states he woke upfeeling dizzy. Later in the morning he went to check his blood sugar and tiltedhis head back to put his eyedrops in and then got dizzy again. He describes it as a ball in his head moving to his side. He states his vertigo always feels like this and he has to get cannula and reposition therapy with Dr. Mejias. He states his head feels full of fluff and this is typical when he has that his episodes. Start to feel little nauseous. He notes he did take his a.m. medications but before taking his medication his checked his vital signs his blood pressure is 126/98 and his heart rate was 38. He denies any associated chest pain or shortness of breath. Denies any numbness or weakness. Does feel little off balance but that is typical when he has these episodes. His notes he did look pale this morning.He is on 81 mg of aspirin daily. Came in for further evaluation given his elevated diastolic and his bradycardia. Currently does not have any dizziness and feels asymptomatic except for mild nausea and fullness inhis head. [facility] Medical History Carotid artery disease Malignant neoplasm of prostate Mixed hyperlipidemia Hepatitis B GERD (gastroesophageal reflux disease) Neuropathy Essential hypertension Syncope Wide-complex tachycardia Premature ventricular contraction Premature atrial contractions Sinus bradycardia Atherosclerotic heart disease of [place] coronary artery without angina pectoris Diabetes type 2, controlled Normal pressure hydrocephalus Obesity Asymptomatic PVCs Dyslipidemia HTN (hypertension) Sleep apnea, obstructive Home Medications ?Medication ?Instructions ?Recorded ?Last Taken ?Type empagliflozin 25 mg tablet 25 mg PO DAILY 12/20/17 Unk nown History (Jardiance) carbidopa 25 mg-levodopa 100 mg 1 tab PO TID Parkinson s 01/12/20 Unknown History tablet vibegron 75 mg tablet (Gemtesa) 75 mg PO DAILY bladder 01/21/22 Unknown History aspirin 81 mg tablet,delayed 325 mg PO QDAY blood thin ner 05/16/24 Unknown History release (Adult Aspirin Regimen) atorvastatin 10 mg tablet 40 mg PO QDAY cholesterol Unknown History ferrous sulfate 325 mg (65 mg 325 mg PO QODAY iron sup plement 05/16/24 Unknown History iron) tablet (FeroSul) melatonin 3 mg tablet 3 mg PO QHS #0 tabs 06/06/24 Unknown Rx metoprolol tartrate 25 mg tablet 12.5 mg (1/2 x 25 mg) PO BID 30 06/06/24 Unknown Rx days #30 tabs insulin glargine 100 45 unit subcut QAM diabetes 07/06/24 Unknown History unit-lixisenatide 33 mcg/mL subcutaneous pen (Soliqua /33) meclizine 12.5 mg tablet 12.5 mg PO TID PRN dizziness #10 09/08/24 Unknown Rx tabs Allergy/AdvReac Type Severity Reaction Status Date / Time rosuvastatin (From Crestor) AdvReac Severe Flu like Verified 09/08/24 09:59 symptoms adhesive tape AdvReac skin tears Verified 09/08/24 09:59 Family History Father COPD (chronic obstructive pulmonary disease) CAD (coronary artery disease) Mother CVA (cerebral vascular accident) Brother CAD (coronary artery disease) Myocardial infarction, Onset Age: 61 Surgical History History of prostatectomy History of cataract surgery History of cholecystectomy History of tonsillectomy Social History household members: spouse Smoking Status: Former smoker alcohol intake: never substance use type: does not use ROS ROS ED Constitutional Constitutional ED: Denies chills, fever(s) or sweats Eyes Eyes: Denies change in vision ENT ENT ED: Denies ear pain or sore throat Cardiovascular Cardiovascular: Denies chest pain or palpitations Respiratory/Chest Respiratory/Chest: Denies cough or dyspnea Gastrointestinal Gastrointestinal: Reports nausea; Denies abdominal pain or vomiting Musculoskeletal Musculoskeletal: Denies arthralgias or myalgias Integumentary Denies rash Neurologic Neurologic: Reports other Details: Describes a mild head fullness ; Denies paresthesias or weakness Hematologic/Lymphatic Hematologic/Lymphatic: Denies easy bleeding or easy bruising EXAM Physical Exam Const Vital Signs: 09/08/24 09:58 09/08/24 09:59 09/08/24 10:34 Temperature 98.1 F 98.2 F Temperature Source Oral Oral Pulse Rate 86 52 L Respiratory Rate 17 16 Blood Pressure 152/60 H 137/59 H 151/63 H Blood Pressure Mean 90 85 92 Pulse Ox 99 99 Oxygen Delivery Method Room Air Room Air 09/08/24 11:15 09/08/24 12:00 09/08/24 13:00 Temperature Temperature Source Pulse Rate 52 L 56 L 54 L Respiratory Rate 18 18 18 Blood Pressure 151/62 H 160/63 H Blood Pressure Mean 91 95 Pulse Ox 98 100 98 Oxygen Delivery Method Room Air Room Air Positive well nourished and well developed General Appearance ED: well developed and NAD HEENT Reports moist mucous membranes; Denies TM's clear HEENT Narrative: Partial cerumen impaction bilaterally. Able to visualize tympanic membranes bilaterally which appear normal. Normal ear canals otherwise. Normal external ears. Tympanic Membrane ED: Negative for TM's clear Eyes PERRL and EOMs intact bilaterally Eyes Narrative: No significant nystagmus on exam. Patient is currently asymptomatic from his dizziness. Neck supple Chest Wall inspection of chest normal and palpation of chest normal Resp normal respiratory effort and clear to auscultation bilaterally Cardio regular rhythm and no murmurs Rate: bradycardia GI normal to inspection, nondistended, normoactive bowel sounds and non-tender Palpation: Negative for tender Extremity normal to inspection Extremity Narrative: Braces on the bilateral lower legs Neuro oriented x3, CN's II-XII intact bilaterally and no sensory deficits noted Neuro Narrative: Relatively normal gait with walker. Normal coordination with no truncal ataxia. Normal finger-nose. Sensorium / Orientation: alert Sensory Exam: No sensory level loss detected Motor Exam: strength 5/5 throughout; Negative for general weakness Psych mental status grossly normal Skin no rashes or lesions noted and no wounds MDM MDM MDM Narrative Medical decision making narrative: Patient evaluated for vertigo that happened today he also had an episode of elevated diastolic blood pressure with low heart rate which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 Referral Priority: Routine Referral Type: Consultation Referral Reason: Specialty Services Required Requested Specialty: [facility]iac Rehabilitation [facility] Tele[facility] encounter Note* Telephone Encounter - Leeanna M Monica - 06/23/2024 11:35 AM EDT Orders Placed This Encounter Procedures [facility] Cardiac/Pulmonary Rehab Standing Status: Future Standing Expiration Date: 12/24/2024 Referral Priority: Routine Referral Type: Consultation Referral Reason: Specialty Services Required Requested Specialty: Cardiac Rehabilitation Number of Visits Requested: 1 [id number] Note06/22/2024 Reviewed EMR prior to today's outreach. [facility] for [facility]. BPCI call made to Mr. Marcus Thrasher. Introduced self and reviewed role on [facility]'s BPCI team. Verified Marcus is able and agreeable to speak today. Assessed for needs or concerns. Marcus shared he lives in [place] with his . He identified having a strong support system. Marcus noted the impact his strong steve has had on his life and outlook. Marcus denied any financial stressors today. He mentioned the cost of copays but shared he and his are managing. He denied issues obtaining medications or needing transportation to and from appointments. Able to complete some of the SDOH items today. Follow up outreach scheduled to complete the rest of the assessment. PMH: FELICIA, Parkinson's disease, CAD, HTN, DM2 DME in the home: cane Informal supports: family Formal supports: none at this time Insurance: Medicare/WPS Advance Directives: not on file MyChart: active HOSPITAL COURSE: 84 y.o. male referred by Dr. Elder for CABG. Patient has history of CAD, carotid artery disease, dyslipidemia, DM, and Parkinsonism. Pt saw Cardiology on 03/23/24 and reported SOB and chest burning with exertion a month prior. Stress test was ordered which showed moderate size reversible perfusion defect of the lateral wall suggestive of ischemia. Echocardiogram was also completed which demonstrated mild to moderate mitral valve insufficiency. Pt then underwent a heart catheterization on 04/24/24 which demonstrated severe multivessel CAD. Seen Dr. Velasco in OP setting on 04/25/24, agreeable to CABG and underwent surgery on 05/10/24. Extubated post-op as expected. Requiring low dose pressor support briefly, resuscitated with fluids, given 1uPRBC. Chest tubes removed. Patient progressing with PT/OT but still requiring assistance. Diuresis started for increased weight and fluid overload. Tolerating well. Started on GDMT for CABG. Able to discharge to [facility] on POD#06. 06/08/2024: Referral received from LIZZIE Brand with the BPCI program, with request to update the social determinants of health questionnaire and assess for any social work needs. Outreach scheduled.[facility]05-01-2025 History of Present illness Narrative* Miguel Angel Handy, TARYN - ROCK WORKER - 06/22/2024 11:00 AM EDT Images from the original note were not included. [facility]: [facility] [address] [facility] [address] Dept: [phone] Dept Loc: [phone] Visit type: Established patient Reason for Visit: Post-op Assessment and Plan 1. S/P CABG (coronary artery bypass graft) - [facility] Re[facility] 05/10/24: s/p CABGx3 (PADILLA-LAD, RSVG-OM1, RSVG-PDA with endarterectomy), LEVH, RAYMOND with Dr. Krista Hernandez for cardiac rehab. -Reviewed sternal precautions. -Okay to drive with someone, short distances at first. -L leg remains slightly swollen, bruising gone. Firmness noted in L thigh, nontender. Likely will resolve with time. -Progressing physically. -Incisions healing well. -Recommended reaching out to Dr. Elder for Cardiology follow up. POD#43 Day from Discharge (05/16/24) #37 -Reviewed current meds: continue as prescribed. -Surgical Incisions: healing appropriately, well approximated, no s/s of infection. -Physical therapy as outlined in discharge instructions.Ok to attend Cardiac Rehab and Ok to drive. -Acute Post-Operative Pain controlled. Patient no longer taking narcotic opioid medication. Tx plan: Over The Counter-Tylenol (acetaminophen) 500 mg 1-2 tablets every 6 hours. No more than 4,000 mg in 24 hour period, Over The Counter-Motrin (ibuprofen) 200-400 mg by mouth every 4-6 hours (or) 600-800mg every 8 hours. No more than 3,200 mg per day, Over The Counter-pain patches (Salon pas) may used as needed next to incision but not directly on your incision, and Ice packs applied for 20 minutes, then off for at least 20 minutes before reapplying. Weight restriction measures 1-4 weeks from date of surgery- 10lbs weight restriction: 5-8 weeks from date of surgery- 20lbs weight restriction: 9-12 weeks from date of surgery-30lbs weight restriction approximate end date: Disposition: Follow up phone call in 2 weeks and PRN. Encouraged patient to reach out to Dr. Elder for Cardiology follow up. Patient verbalized understanding of plan and stated they would call if any questions or concerns arise. Treatment Team: PCP: KELSEY MOON MD Subjective HPI: 84 y.o. male referred by Dr. Elder for CABG. Patient has history of CAD, carotid artery disease, dyslipidemia, DM, and Parkinsonism. Pt saw Cardiology on 03/23/24 and reported SOB and chest burning with exertion a month prior. Stress test was ordered which showed moderate size reversible perfusion defect of the lateral wall suggestive of ischemia. Echocardiogram was also completed which demonstrated mild to moderate mitral valve insufficiency. Pt then underwent a heart catheterization on 04/24/24 which demonstrated severe multivessel CAD. Seen Dr. Velasco in OP setting on 04/25/24, agreeable to CABG and underwent surgery on 05/10/24. Extubated post-op as expected. Requiring low dose pressor support briefly, resuscitated with fluids, given 1uPRBC. Chest tubes removed. Patient progressing withPT/OT but still requiring assistance. Diuresis started for increased weight and fluid overload. Tolerating well. Started on GDMT for CABG. Able to discharge to [facility] on POD#06. 05/25/24: Spoke with patient and on phone, he is currently in [facility]. He is doing well, patient feels he could tolerate more intense rehab, encouraged to speak to rehab managers for possibility of transfer to different unit. Swelling in LLE improving, as is bruising. Has 3 small lumps on LLE, DVT ultrasound performed and negative. Pain has been tolerable. Incisions healing well. 06/22/24: Patient now at home from rehab. Doing well, walking with walker but progressing. Denies pain and SOB. Incisions healing well. L leg remains slightly swollen compared to R. Firmness noted in L thigh, likely remaining hematoma from bleeding post-op. Bruising resolved. Allergies Allergen Reactions Rosuvastatin Other Reaction(s): Flu like symptoms Tape Other Reaction(s): skin tears Current Outpatient Medications: aspirin 81 MG chewable tablet, Chew 4 tablets (325 mg) daily., Disp: , Rfl: atorvastatin (Lipitor) 40 MG tablet, Take 1 tablet (40 mg) by mouth Nightly., Disp: , Rfl: carbidopa-levodopa (Sinemet) 25-100 MG tablet, Take 1 tablet by mouth 3 times daily., Disp: , Rfl: ferrous sulfate 325 (65 Fe) MG tablet, Take 1 tablet (325 mg) by mouth every 48 hours. Do not startbefore May 17, 2024., Disp: , Rfl: Miconazole Nitrate 2 % ointment, Apply topically as needed., Disp: , Rfl: Propylene Glycol (LUBRICANT EYE DROP OP), Administer into affected eye(s) as needed. Both eyes, Disp: , Rfl: Vibegron 75 MG tablet, Take 1 tablet by mouth daily., Disp: , Rfl: acetaminophen (Tylenol) 500 MG tablet, Take 2 tablets (1,000 mg) by mouth every 8 hours., Disp: , Rfl: empagliflozin (Jardiance) 25 MG, Take 25 mg by mouth daily., Disp: , Rfl: furosemide (Lasix) 40 MG tablet, Take 1 tablet (40 mg) by mouth daily for 7 days., Disp: , Rfl: insulin glargine-lixisenatide (Soliqua) 100-33 UNT-MCG/ML pen, Inject 45 Units under the skin everymorning (before breakfast)., Disp: , Rfl: Melatonin 3 MG tablet dispersible, Take 3 mg by mouth Nightly., Disp: , Rfl: metoprolol succinate XL (Toprol-XL) 25 MG 24 hr tablet, Take 12.5 mg by mouth daily. Do not crush or chew., Disp: , Rfl: triamcinolone (Kenalog) 0.1 % ointment, Apply topically., Disp: , Rfl: Past Medical History: Diagnosis Date Carotid arterial disease (HCC) Coronary artery disease Depression Diabetes mellitus (HCC) type 2 Dyslipidemia GERD (gastroesophageal reflux disease) Hypertension Malignant neoplasm of prostate (HCC) Parkinsonism (HCC) Sleep apnea pt states wears a CPAP at bedtime Objective Patient reported: Failed to redirect to the Timeline version of the [employer] Smart[employer]. Vitals: 06/22/24 1118 BP: 129/67 Pulse: 60 Wt Readings from Last 3 Encounters: 06/22/24 207 lb (93.9 kg) 05/16/24 208 lb 3.2 oz (94.4 kg) 05/04/24 211 lb (95.7 kg) Physical Exam Vitals reviewed. Cardiovascular: Rate and Rhythm: Normal rate and regular rhythm. Pulses: Normal pulses. Heart sounds: No murmur heard. Pulmonary: Effort: Pulmonary effort is normal. Breath sounds: No wheezing, rhonchi or rales. Musculoskeletal: General: Swelling present. Comments: Bilateral lower extremity swelling, L>R. Skin: General: Skin is warm and dry. Capillary Refill: Capillary refill takes less than 2 seconds. Comments: Incisions healing well. No redness, warmth or drainage. Data Reviewed and Summarized Labs/Imaging/Testing: reviewed EMR, see A&P for pertinent diagnostic results related to office visit Miguel Angel Handy, FURNACE CHARGER - ROCK WORKER documented in this [facility]04-22-2025 Note06/13/24 1022 BPCI Late Drop? Program late drop? No BPCI Outreach Assessment Selection Which outreach assessment are you completing? 30 Day BPCI - 30 Day Outreach Did patient answer phone call? [facility]04-22-2025 NoteBPCI 30 day outreach ADMIT DATE: 05/10/2024 DISCHARGE DATE: 05/16/2024 SURGERY: 05/10/24: s/p CABGx3 (PADILLA-LAD, RSVG-OM1, RSVG-PDA with endarterectomy), JUDY, RAYMOND with Dr. Velasco PM: FELICIA, Parkinson's disease, CAD, HTN, DM2 EMR reviewed. CM spoke to the patient last week- patient was at [facility] with plans to discharge home soon. Chart reviewed for BPCI outreach. Phone call to patient, no answer, left VM to please return call. Will follow up for next BPCI outreach. Scheduled BPCI PRN call to check on the patient since home from rehab.[facility] 06-08-2024 Note06/08/2024: Referral received from LIZZIE Brand with the BPCI program, with request to update the social determinants of health questionnaire and assess for any social work needs. Outreach scheduled.[facility]04-15-2025 [facility]04-15-2025 NoteBPCI 21 day outreach ADMIT DATE: 05/10/2024 DISCHARGE DATE: 05/16/2024 SURGERY: 05/10/24: s/p CABGx3 (PADILLA-LAD, RSVG-OM1, RSVG-PDA with endarterectomy), JUDY, RAYMOND with Dr. Velasco PM: FELICIA, Parkinson's disease, CAD, HTN, DM2 Called and spoke to the patient. The patient reports he feels well in general and the patient remains at [facility]. The patient stated he may be getting discharged to home in the next couple days. The patient stated his strength and stamina has improved and he has been working on his balancing. The patient discussed his anemia and how his Hgb has improved. We discussed the feeling of when his Hgb is low and when to report to doctor for possible blood work should this happen in the future. Discussed the patients surgery and follow up with Cardiothoracic Surgery on 05/25/24. Patient stated he continues to have some pain in this thigh- swelling and pain but the swelling is improving. The patient stated his thigh was very hard to the touch with some pain and swelling but it seems to be slowly improving. Patient aware that ultrasounds were done and no blood clots found. The patient also reports he has lost a lot of weight since his surgery-discussed water weight gains and monitoring weights, edema and other things to look out for and report to Cardiology. The patient sees [facility] in [place]. DM2 Patient reports facility is checking his blood sugar levels and his blood sugars were ranging from 60's-300's but have been more steady around the 160's range. The patient would like to speak to his PCP about a continuous glucose monitor. CM will call the patients cell phone next week to see if patient is home and how the patient is doing-scheduled BPCI 30 day outreach. Sending referral to CHANTEL Tijerina for eval.[facility]04-08-2025 Note 05/30/24 0933 BPCI Late Drop? Program late drop? No BPCI Outreach Assessment Selection Which outreach assessment are you completing? 14 Day BPCI - 14 Day Outreach Did patient answer phone call? [facility]04-08-2025 NoteBPCI 14 day outreach ADMIT DATE: 05/10/2024 DISCHARGE DATE: 05/16/2024 SURGERY: 05/10/24: s/p CABGx3 (PADILLA-LAD, RSVG-OM1, RSVG-PDA with endarterectomy), LEVH, RAYMOND with Dr. Velasco EMR reviewed. The patient had Telemedicine visit with Cardiothoracic Surgery 05/25/24. Chart reviewed for BPCI outreach. Phone call to patient, no answer, left VM to please return call. Will follow up for next BPCI outreach. Scheduled BPCI 21 day outreach.[facility]04-03-2025 History of Present illness Narrative* Miguel Angel Handy, TARYN - ROCK WORKER - 05/25/2024 1:00 PM EDT Images from the original note were not included. [facility]: [facility] [address] [facility] [address] Dept: [phone] Dept Loc: [phone] Visit type: Established patient Reason for Visit: Follow-up Assessment and Plan 1. S/P CABG (coronary artery bypass graft) 05/10/24: s/p CABGx3 (PADILLA-LAD, RSVG-OM1, RSVG-PDA with endarterectomy), LEVH, RAYMOND with Dr. Velasco -So far so good. -No pain in chest. -Transfused 2uPRBC at rehab. -Swelling and bruising in legs getting better. -DVT ultrasound negative at rehab, has small lumps on LLE. -Sharp pain in L foot upon standing, described as nerve pain. Encouraged patient to talk to medicaldoctor at rehab to consider gabapentin. POD#15 Day from Discharge (05/16/24) #09 -Reviewed current meds: continue as prescribed. -Surgical Incisions: Per patient-healing appropriately, well approximated, no s/s of infection. -Physical therapy as outlined in discharge instructions.Not ready for Cardiac Rehab and Not ready to drive. -Acute Post-Operative Pain controlled. Patient no longer taking narcotic opioid medication. Tx plan: Over The Counter-Tylenol (acetaminophen) 500 mg 1-2 tablets every 6 hours. No more than 4,000 mg in 24 hour period, Over The Counter-Motrin (ibuprofen) 200-400 mg by mouth every 4-6 hours (or) 600-800mg every 8 hours. No more than 3,200 mg per day, Over The Counter-pain patches (Salon pas) may used as needed next to incision but not directly on your incision, and Referral placed to Pain Management. Weight restriction measures 1-4 weeks from date of surgery- 10lbs weight restriction: 5-8 weeks from date of surgery- 20lbs weight restriction: 9-12 weeks from date of surgery-30lbs weight restriction approximate end date: Disposition: Phone call in 2 weeks, will plan in person visit once out of rehab. Patient verbalized understanding of plan and stated they would call if any questions or concerns arise. Treatment Team: PCP: KELSEY MOON MD Patient was identified and seen today via Telehealth by agreement and consent. I used the followingIndigoBoom technology: Audio capability only. Total length of call 20 minutes. The patient was offered and advised video for a more comprehensive evaluation, but the patient declined or was unable touse video. Patient location: [place] Patient Location: Rehab . This patient encounter is appropriate andreasonable under the circumstances: Currently at [facility] . The patient has been advised of the potential risks and limitations of this mode of treatment (including but not limited to the absence of in-person examination) and has agreed to be treated in a remote fashion in spite of them. Any and all of the patient's/patient's family's questions on this issue have been answered and I have made no promises or guarantees to the patient. The patient has also been advised to contact this office for worsening conditions or problems, and seek emergency medical treatment and/or call 911 if the patient deems either necessary. The patient stated that they are currently in the [facility]. If the patientis a minor, permission has been obtained by the parent or guardian for the patient to receive medical care at this visit. Subjective HPI: 84 y.o. male referred by Dr. Elder for CABG. Patient has history of CAD, carotid artery disease, dyslipidemia, DM, and Parkinsonism. Pt saw Cardiology on 03/23/24 and reported SOB and chest burning with exertion a month prior. Stress test was ordered which showed moderate size reversible perfusion defect of the lateral wall suggestive of ischemia. Echocardiogram was also completed which demonstrated mild to moderate mitral valve insufficiency. Pt then underwent a heart catheterization on 04/24/24 which demonstrated severe multivessel CAD. Seen Dr. Velasco in OP setting on 04/25/24, agreeable to CABG and underwent surgery on 05/10/24. Extubated post-op as expected. Requiring low dose pressor support briefly, resuscitated with fluids, given 1uPRBC. Chest tubes removed. Patient progressing withPT/OT but still requiring assistance. Diuresis started for increased weight and fluid overload. Tolerating well. Started on GDMT for CABG. Able to discharge to [facility] on POD#06. 05/25/24: Spoke with patient and on phone, he is currently in [facility]. He is doing well, patient feels he could tolerate more intense rehab, encouraged to speak to rehab managers for possibility of transfer to different unit. Swelling in LLE improving, as is bruising. Has 3 small lumps on LLE, DVT ultrasound performed and negative. Pain has been tolerable. Incisions healing well. Allergies Allergen Reactions Rosuvastatin Other Reaction(s): Flu like symptoms Tape Other Reaction(s): skin tears Outpatient Medications Prior to Visit Medication Sig Dispense Refill acetaminophen (Tylenol) 500 MG tablet Take 2 tablets (1,000 mg) by mouth every 8 hours. aspirin 81 MG chewable tablet Chew 4 tablets (325 mg) daily. atorvastatin (Lipitor) 40 MG tablet Take 1 tablet (40 mg) by mouth Nightly. Calcium Carb-Cholecalciferol (CALCIUM 500 + D3 PO) Take 1 tablet by mouth daily. carbidopa-levodopa (Sinemet) 25-100 MG tablet Take 1 tablet by mouth 3 times daily. ferrous sulfate 325 (65 Fe) MG tablet Take 1 tablet (325 mg) by mouth every 48 hours. Do not start before May 17, 2024. furosemide (Lasix) 40 MG tablet Take 1 tablet (40 mg) by mouth daily for 7 days. insulin glargine (Lantus) 100 UNIT/ML injection Inject 32 Units under the skin every morning. Insulin Lispro (Humalog) 100 UNIT/ML solution injection Inject 0-12 Units under the skin 3 times daily (with meals). Insulin Lispro (Humalog) 100 UNIT/ML solution injection Inject 14 Units under the skin 3 times daily (with meals). metoprolol tartrate (Lopressor) 25 MG tablet Take 1 tablet (25 mg) by mouth 2 times daily. Miconazole Nitrate 2 % ointment Apply topically as needed. oxyCODONE (Roxicodone) 5 MG immediate release tablet Take 1 tablet (5 mg) by mouth every 6 hours asneeded for severe pain (7-10). potassium chloride CR (Klor-Con M20) 20 MEQ ER tablet Take 2 tablets (40 mEq) by mouth daily. Do not crush or chew. While taking lasix. Propylene Glycol (LUBRICANT EYE DROP OP) Administer into affected eye(s) as needed. Both eyes Vibegron 75 MG tablet Take 1 tablet by mouth daily. No facility-administered medications prior to visit. Past Medical History: Diagnosis Date Carotid arterial disease (HCC) Coronary artery disease Depression Diabetes mellitus (HCC) type 2 Dyslipidemia GERD (gastroesophageal reflux disease) Hypertension Malignant neoplasm of prostate (HCC) Parkinsonism (HCC) Sleep apnea pt states wears a CPAP at bedtime Objective Patient reported: Failed to redirect to the Timeline version of the [facility]. There were no vitals filed for this visit. Wt Readings from Last 3 Encounters: 05/16/24 208 lb 3.2 oz (94.4 kg) 05/04/24 211 lb (95.7 kg) 04/25/24 209 lb (94.8 kg) Physical exam deferred due to virtual visit-with audio (telephone) capabilities only. Data Reviewed and Summarized Labs/Imaging/Testing: reviewed EMR, see A&P for pertinent diagnostic results related to office visit TARYN Kraft CNP documented in this [place] [address]-01-2025 Note05/23/24 1116 BPCI Late Drop? Program late drop? No BPCI Outreach Assessment Selection Which outreach assessment are you completing? 7 Day BPCI - 7 Day Outreach Did patient answer phone call? [facility]04-01-2025 NoteBPCI 7 day outreach ADMIT DATE: 05/10/2024 DISCHARGE DATE: 05/16/2024 SURGERY: 05/10/24: s/p CABGx3 (PADILLA-LAD, RSVG-OM1, RSVG-PDA with endarterectomy), LEVH, RAYMOND with Dr. Velasco DISCHARGE DIAGNOSES: CAD s/p CABG T2DM, A1c 7.4% Dyslipidemia Carotid artery disease Parkinsonism Malignant neoplasm of prostate s/p prostatectomy Post operative Pulm Management: Normal Post-operative Course Post-operative Atrial Fibrillation: []Yes [x] No Acute blood loss anemia/consumptive thrombocytopenia PMH: FELICIA, CAD, HTN, DM2 Follow up appts: 05/25 Cardiothoracic Surgery Chart reviewed for BPCI outreach. Phone call to patient, no answer, left VM to please return call. Will follow up for next BPCI outreach-scheduled 14 day BPCI outreach.[facility]03-28-2025 Note05/19/24 1112 BPCI Late Drop? Program late drop? No BPCI Outreach Assessment Selection Which outreach assessment are you completing? 72 Hour BPCI - 72 Hour Outreach Did patient answer phone call? [facility]03-28-2025 NoteBPCI 72 hour outreach ADMIT DATE: 05/10/2024 DISCHARGE DATE: 05/16/2024 SURGERY: 05/10/24: s/p CABGx3 (PADILLA-LAD, RSVG-OM1, RSVG-PDA with endarterectomy), LEVH, RAYMOND with Dr. Velasco DISCHARGE DIAGNOSES: CAD s/p CABG T2DM, A1c 7.4% Dyslipidemia Carotid artery disease Parkinsonism Malignant neoplasm of prostate s/p prostatectomy Post operative Pulm Management: Normal Post-operative Course Post-operative Atrial Fibrillation: []Yes [x] No Acute blood loss anemia/consumptive thrombocytopenia PMH: FELICIA, CAD, HTN, DM2 Follow up appts: 05/25 Cardiothoracic Surgery Chart reviewed for BPCI outreach. Phone call to patient, no answer, left VM to please return call. Will follow up for next BPCI outreach. Scheduled BPCI 7 day outreach.[facility]03-25-2025 [facility] 05-16-2024 Evaluation note* Diagnosis Onset Date Resolution Status Admit Date Coronary artery disease acute M 2024 12:37pm Debility acute May 16 12:37pm Essential (primary) hypertension acu te May 16, 2024 12:37pm Hyperlipidemia, unspecified acute May 16, 2024 12:37pm Overactive bladder acute May 16, 2024 12:37pm Parkinson disease acute April 232024 12:37pm Type 2 diabetes mellitus wit h hyperglycemia acute May 16, 2024 12:37pm Sleep apnea, obstructive chronic May 16, 2024 12:37pm Diabetic polyneuropathy resolved 2024 12:37pm Malignant neoplasm of prostate resol shaquille May 16, 2024 12:37pm Status post three vessel coronary artery bypass resolved April 12:37pm Anemia acute July 06, 2024 9:56am Atherosclerotic heart diseas e of [place] coronary artery without angina pectoris chronic July 06, 2024 9 :56am Carotid artery disease chronic Ma 2024 9:56am Diastolic dysfunction chronic July 06, 2024 9:56am Mixed hyperlipidemia chronic July 06, 2024 9:56am [facility] Work Phone: 1(115) 275-936903-25-2025 Evaluation note* Diagnosis Onset Date Resolution Status Admit Date Coronary artery disease acute M 2024 12:37pm Debility acute May 16 12:37pm Essential (primary) hypertension acu te May 16, 2024 12:37pm Hyperlipidemia, unspecified acute May 16, 2024 12:37pm Overactive bladder acute May 16, 2024 12:37pm Parkinson disease acute April 232024 12:37pm Type 2 diabetes mellitus wit h hyperglycemia acute May 16, 2024 12:37pm Sleep apnea, obstructive chronic May 16, 2024 12:37pm Diabetic polyneuropathy resolved M 2024 12:37pm Malignant neoplasm of prostate resol shaquille May 16, 2024 12:37pm Status post three vessel coronary artery bypass 2024 resolved April 12:37pm Anemia acute July 06, 2024 9:56am Atherosclerotic heart diseas e of [place] coronary artery without angina pectoris chronic July 06, 2024 9 :56am Carotid artery disease chronic Ma y 2024 9:56am Diastolic dysfunction chronic July 06, 2024 9:56am Mixed hyperlipidemia chronic July 06, 2024 9:56am Anemia acute October 02, 2 025 11:28am Type 2 diabetes mellitus wit h hyperglycemia acute October 02 11:28am Atherosclerotic heart diseas e of [place] coronary artery without angina pectoris chronic October 02 11:28am Carotid artery disease chronic Au zofia 2024 11:28am Diastolic dysfunction chronic Sep ust 2024 11:28am Mixed hyperlipidemia chronic Augu st 2024 11:28am [facility] Work Phone: 1(139) 271-288503-25-2025 NoteBPCI Referral Received notification that the patient was discharged. Enrolling patient in BPCI program today. Scheduled 72 hour BPCI outreach. EMR reviewed. ADMIT DATE: 05/10/2024 DISCHARGE DATE: 05/16/2024 SURGERY: 05/10/24: s/p CABGx3 (PADILLA-LAD, RSVG-OM1, RSVG-PDA with endarterectomy), LEVDejah, RAYMOND with Dr. Velasco DISCHARGE DIAGNOSES: CAD s/p CABG T2DM, A1c 7.4% Dyslipidemia Carotid artery disease Parkinsonism Malignant neoplasm of prostate s/p prostatectomy Post operative Pulm Management: Normal Post-operative Course Post-operative Atrial Fibrillation: []Yes [x] No Acute blood loss anemia/consumptive thrombocytopenia HOSPITAL COURSE: 84 y.o. male referred by Dr. Elder for CABG. Patient has history of CAD, carotid artery disease, dyslipidemia, DM, and Parkinsonism. Pt saw Cardiology on 03/23/24 and reported SOB and chest burning with exertion a month prior. Stress test was ordered which showed moderate size reversible perfusion defect of the lateral wall suggestive of ischemia. Echocardiogram was also completed which demonstrated mild to moderate mitral valve insufficiency. Pt then underwent a heart catheterization on 04/24/24 which demonstrated severe multivessel CAD. Seen Dr. Velasco in OP setting on 04/25/24, agreeable to CABG and underwent surgery on 05/10/24. Extubated post-op as expected. Requiring low dose pressor support briefly, resuscitated with fluids, given 1uPRBC. Chest tubes removed. Patient progressing with PT/OT but still requiring assistance. Diuresis started for increased weight and fluid overload. Tolerating well. Started on GDMT for CABG. Able to [facility] to [facility] on POD#06.[facility]03-25-2025 History of Present illness Narrative* TARYN Clark CNP - 05/16/2024 10:36 AM EDT Images from the original note were not included. Cardiothoracic Surgery Note PATIENT NAME: Farhana Thrasher : 1940 (84 y.o.) TODAY'S DATE: 05/16/2024 Objective: BP (!) 130/49 (BP Location: Left arm, Patient Position: Lying) Pulse 66 Temp 36.1 C (97 F) (Temporal) Resp 17 Ht 5' 7 (1.702 m) Wt 208 lb 3.2 oz (94.4 kg) SpO2 100% BMI 32.61 kg/m Epicardial pacing wire cut without difficulty per protocol. Patient and nurse educated on possible complications. Patient tolerated well. Will continue to monitor. * Abi Rios, EXECUTIVE DIRECTOR OF NURSING - 05/16/2024 8:41 AM EDT Images from the original note were not included. PHYSICAL THERAPY [facility] Treatment Note Name/MRN: Marcus Thrasher ([id number]) Date of : 1940 Age: 84 y.o. Room/Bed: T1-116/T1-116 A Discharge Recommendation: IP Rehab Other: owns a cane Prior Level of Function Prior Level of ADL Function: Required Assist Prior Level of Mobility: Independent; Device: Straight Cane and bilat AFO Prior Level of Transfers: Independent Assessment Pt min assist for transfer and gait. BLE swelling with increase pain, RN notified. Continues to require cues for sternal precautions with transfers. He is below his baseline. Rec rehab upon dischargeto maximize independence. Subjective Pt in chair, agreeable to PT. Continues to c/o andrew leg pain. Pain: [place] Pain Ratin = Hurts even more Pain Location: BLE Medical Precautions: No active isolations Proper PPE donned/doffed in accordance with facility standards. Fall Risk: [place] Fall Risk Score: 85 (High Risk) Precautions/Restrictions: Sternal Precautions: No Pushing, No Pulling, No Lifting Greater Than 10 lbs and No lifting greater than 10 lbs. Ok for modified UE precautions using Keep Your Move in the Tube technique Fall Precautions Overall Cognitive Status: WNL Overall Orientation Status: Oriented x4 Family/Caregiver Present: none Objective Transfers/Mobility Sit to stand: Min Assist Stand to sit: Min Assist X2 attempts before successful transfer. Cues for sternal precautions. Device(s) used: None Ambulation Ambulation 1 Assistive device(s) used: Rollator Assist level: Min Assist Distance (ft): 500ft, 1 standing rest break Quality of gait: slow jose, decrease step length, double stance time. Balance During Session: Posture: standing with rollator, anterior lean, wide MARIBEL, min assist initially for balance and ableto progress to SBA. Exercises Exercises Upper Extremity: P&C ex #1-9 all x 10 reps each Comments: Educated pt on proper technique on I.S.. Encouraged P&C exercises on his own time. Other exercises Other exercises?: Yes Other exercises 1: I.S. x 10 reps, 1500mL Plan Continue acute PT per plan of care. Safety/Education Safety Safety Devices in place: call light within reach, left in chair, and no alarms engaged upon entry Restraints: No Education Education Given To: patient Education Provided: PT Goals, Gait Training, Plan of Care, Home Exercise Program, Precautions, Transfer Training, Fall Prevention Education, Discharge Recommendations, Benefits of Increasing Activity, and Breathing Techniques Education Method: Verbal Barriers to Learning: None Education Outcome: Verbalized Understanding Outcome Measures AM-PAC AM-PAC Inpatient Mobility Raw Score (No Stairs) : 12 JH-HLM -HLM Score: Walked 250 ft or more (i.e. several laps on unit) Goals Patient Stated Goal: To go to rehab Encounter Problems Encounter Problems (Active) Cardiac Patient will perform bed mobility with modified independence in order to improve independence and prepare for out of bed mobility. (Not Addressed) Start: 05/11/24 Expected End: 06/08/24 Patient will complete sit to stand transfer with modified independence to straight cane and rollingwalker in order to improve safety and prepare for out of bed mobility. (Progressing) Start: 05/11/24 Expected End: 06/08/24 Patient will ambulate 250 feet or ambulate 5 minutes with supervision with RPE of 14 or lower. (Progressing) Start: 05/11/24 Expected End: 06/08/24 Patient will ascend and descend 3 # stairs with supervision rail for balance only. (Not Addressed) Start: 05/11/24 Expected End: 06/08/24 Patient will be independent with P&C exercises. (Progressing) Start: 05/11/24 Expected End: 06/08/24 Patient will be independent with managing secretions and home walking program. (Progressing) Start: 05/11/24 Expected End: 06/08/24 Therapy Time Individual Co-treatment Time In 0813 Time Out 0841 Minutes 28 Timed Code Treatment Minutes: 28 Minutes (tp; gait) Abi Rios PTA Cosigned by Eufemia Murillo PT at 05/16/2024 10:27 AM EDT * Abi Rios PTA - 05/15/2024 9:34 AM EDT Images from the original note were not included. PHYSICAL THERAPY [facility] Treatment Note Name/MRN: Marcus Thrasher ([id number]) Date of : 1940 Age: 84 y.o. Room/Bed: T1-116/T1-116 A Discharge Recommendation: IP Rehab Other: owns a cane Prior Level of Function Prior Level of ADL Function: Required Assist Prior Level of Mobility: Independent; Device: Straight Cane and bilat AFO Prior Level of Transfers: Independent Assessment Pt min assist for transfer, gait and balance. Cues needed for sternal precautions during transfers.2/3 recall for precautions. Educated and reviewed P&C exercises. Pt is below is baseline. Rec rehab upon discharge. Subjective Pt in restroom sitting on toilet, pulled call light. Agreeable to PT. Noted swelling in LLE, per this has increase since yesterday, firm to touch, painful, RN notified. Pain: chronic andrew shoulder pain. LLE pain. Medical Precautions: No active isolations Proper PPE donned/doffed in accordance with facility standards. Fall Risk: [place] Fall Risk Score: 85 (High Risk) Precautions/Restrictions: Sternal Precautions: No Pushing, No Pulling, No Lifting Greater Than 10 lbs and No lifting greater than 10 lbs. Ok for modified UE precautions using Keep Your Move in the Tube technique Fall Precautions Overall Cognitive Status: WNL Overall Orientation Status: Oriented x4 Family/Caregiver Present: spouse Objective Transfers/Mobility Sit to stand: Min Assist Stand to sit: Min Assist X 2 attempts before successful transfers (x 2 reps, toilet, chair). Cues for sternal precautions. Device(s) used: Rollator Ambulation Ambulation 1 Assistive device(s) used: Rollator Assist level: Min Assist Distance (ft): 250ft x 2 Quality of gait: slow jose, cues for pursed lip breathing. Balance During Session: Posture: standing with rollator, anterior lean, wide MARIBEL, min assist for balance. Dynamic standing for hand hygiene, min assist for balance due to postural sway. Exercises Exercises Upper Extremity: P&C ex #1-9 all x 10 reps each Other exercises Other exercises?: No Plan Continue acute PT per plan of care. Safety/Education Safety Safety Devices in place: call light within reach, left in chair, patient at risk for falls, nurse notified, and no alarms engaged upon entry Restraints: No Education Education Given To: patient Education Provided: PT Goals, Gait Training, Plan of Care, Home Exercise Program, Precautions, Transfer Training, Fall Prevention Education, Discharge Recommendations, Benefits of Increasing Activity, and Breathing Techniques Education Method: Verbal Barriers to Learning: None Education Outcome: Verbalized Understanding Outcome Measures AM-PAC AM-PAC Inpatient Mobility Raw Score (No Stairs) : 13 JH-HLM JH-HLM Score: Walked 250 ft or more (i.e. several laps on unit) Goals Patient Stated Goal: To go to rehab Encounter Problems Encounter Problems (Active) Cardiac Patient will perform bed mobility with modified independence in order to improve independence and prepare for out of bed mobility. (Not Addressed) Start: 05/11/24 Expected End: 06/08/24 Patient will complete sit to stand transfer with modified independence to straight cane and rollingwalker in order to improve safety and prepare for out of bed mobility. (Progressing) Start: 05/11/24 Expected End: 06/08/24 Patient will ambulate 250 feet or ambulate 5 minutes with supervision with RPE of 14 or lower. (Progressing) Start: 05/11/24 Expected End: 06/08/24 Patient will ascend and descend 3 # stairs with supervision rail for balance only. (Not Addressed) Start: 05/11/24 Expected End: 06/08/24 Patient will be independent with P&C exercises. (Progressing) Start: 05/11/24 Expected End: 06/08/24 Patient will be independent with managing secretions and home walking program. (Not Addressed) Start: 05/11/24 Expected End: 06/08/24 Therapy Time Individual Co-treatment Time In 0854 Time Out 0921 Minutes 27 Timed Code Treatment Minutes: 27 Minutes (tp; gait) Abi Rios EXECUTIVE DIRECTOR OF NURSING Cosigned by Eufemia Murillo, PT at 05/15/2024 10:25 AM EDT * Jasmyn Mcnally, FURNACE CHARGER - ROCK WORKER - 05/15/2024 8:52 AM EDT Department of Internal Medicine Division of Endocrinology, Diabetes, & Metabolism Endocrinology Note Patient Name: Farhana Thrasher : 1940 AGE: 84 y.o. Room/Bed: T1116/T1-116 A Admission Date: 05/10/2024 Visit Date: 05/15/2024 Reason for Endocrine Consult: post op heart Provider/Team Requesting Consult: CTS PCP: KELSEY MOON MD Outpt Flow Match Sofa Cutter: No ASSESSMENT: DM2 with hyperglycemia and buttermaker helper insulin Stress hyperglycemia CABGX3 HLD/CAD Obesity Body mass index is 34.1 kg/m . PLAN: Glucose readings are still elevated today Continue increased dose of Lantus 28 units daily Increase Humalog to 12 units before meals Continue Humalog medium scale ICU goal <180 GMF goal <150 POCT BG ACHS Hypoglycemia management per protocol Carb controlled diet ANTICIPATED ENDOCRINE HOME GOING RECOMMENDATIONS: Optimized for Discharge from Endocrine standpoint: yes Home Going Endocrine Rx Recommendations-- Soliqua pen home dose Jardiance home dose Metformin home dose Outpt Follow Up-- PCP SUBJECTIVE/HPI: CHIEF COMPLAINT: No chief complaint on file. S/p CABGx3 Noted hx of DM2 in chart review Glucose readings elevated this morning Noted Lantus was increased for today will also adjust his Humalog Patient states he is eating well, had dinner at 630 last night Ate breakfast eggs and russell this morning VSS RA up in chair Denies late snacking Denies nausea vomiting abdominal pain Family in room States he will discharge to rehab Discussed diabetes management for home at length Spoke with nursing Type of DM: 2 Onset of DM: Over 40 years Home DM Medication Regimen: per chart-Soliqua pen 100/33 at 45 units daily am, jardiance 25 mg po daily, metformin 1 g po bid DM control (last A1c/glucose data): Lab Results Component Value Date HGBA1C 7.4 (H) 05/04/2024 Glucose Date/Time Value Ref Range Status 05/15/2024 06:57 AM 244 (H) 70 - 100 mg/dL Final 05/14/2024 09:20 PM 197 (H) 70 - 100 mg/dL Final 05/14/2024 04:52 PM 150 (H) 70 - 100 mg/dL Final 05/14/2024 11:16 AM 356 (H) 70 - 100 mg/dL Final 05/14/2024 08:32 AM 225 (H) 70 - 100 mg/dL Final 05/13/2024 09:24 PM 285 (H) 70 - 100 mg/dL Final Review of Systems All other systems reviewed and are negative. ROS negative except for those mentioned in HPI. OBJECTIVE: Vitals: 05/15/24 0000 05/15/24 0400 05/15/24 0606 05/15/24 0800 BP: 126/51 (!) 162/44 (!) 104/46 BP Location: Right arm Left arm Right arm Patient Position: Lying Lying Sitting Pulse: 59 79 83 Resp: 18 18 18 Temp: 36.1 C (97 F) 36.1 C (97 F) 36.4 C (97.6 F) TempSrc: Temporal Temporal Temporal SpO2: 100% 100% 100% Weight: 217 lb 11.2 oz (98.7 kg) Height: Physical Exam Vitals and nursing note reviewed. Constitutional: General: He is awake. He is not in acute distress. Appearance: He is obese. He is not toxic-appearing. Interventions: Nasal cannula in place. HENT: Mouth/Throat: Mouth: Mucous membranes are moist. Cardiovascular: Rate and Rhythm: Normal rate. Pulmonary: Effort: No respiratory distress. Abdominal: Tenderness: There is no guarding. Skin: General: Skin is warm and dry. Coloration: Skin is pale. Comments: Intact incision Neurological: Mental Status: He is alert and oriented to person, place, and time. Mental status is at baseline. Psychiatric: Mood and Affect: Mood normal. Behavior: Behavior normal. Behavior is cooperative. 24 hour intake/output: Intake/Output Summary (Last 24 hours) at 05/15/2024 0853 Last data filed at 05/15/2024 0500 Gross per 24 hour Intake 0 ml Output -- Net 0 ml Diet: Adult diet Regular; 5 carb choices (75 gm/meal) Medications (as per EMR): HomeMeds: Current Outpatient Medications Medication Instructions amLODIPine (Norvasc) 5 MG tablet Every evening aspirin 81 mg, Every evening atorvastatin (LIPITOR) 10 mg, Nightly Calcium Carb-Cholecalciferol (CALCIUM 500 + D3 PO) 1 tablet, Daily carbidopa-levodopa (Sinemet) 25-100 MG tablet 1 tablet, 3 times daily empagliflozin (JARDIANCE) 25 mg, Daily insulin glargine-lixisenatide (Soliqua) 100-33 UNT-MCG/ML pen 45 Units, Daily before breakfast metFORMIN (GLUCOPHAGE) 1,000 mg, 2 times daily with meals metoprolol succinate XL (TOPROL-XL) 12.5 mg, Daily Miconazole Nitrate 2 % ointment PRN mupirocin (Bactroban) 2 % ointment Apply liberal amount per nostril the night before surgery and then again the morning of surgery Propylene Glycol (LUBRICANT EYE DROP OP) PRN triamcinolone (Kenalog) 0.1 % ointment 1 Application, Daily PRN Vibegron 75 MG tablet 1 tablet, Daily Scheduled Meds:acetaminophen, 1,000 mg, Oral, q8h aspirin, 325 mg, Oral, Daily atorvastatin, 40 mg, Oral, Nightly carbidopa-levodopa, 1 tablet, Oral, TID chlorhexidine, , Topical, Daily chlorhexidine, 15 mL, Mouth/Throat, BID heparin, 5,000 Units, SubCUTAneous, BID insulin glargine, 28 Units, SubCUTAneous, q AM insulin lispro, 0-12 Units, SubCUTAneous, TID WC insulin lispro, 10 Units, SubCUTAneous, TID WC Lidocaine, 1 patch, Topical, Daily metoprolol tartrate, 25 mg, Oral, BID pantoprazole, 40 mg, Oral, qAM AC polyethylene glycol (PEG) 3350, 17 g, Oral, Daily senna-docusate sodium, 2 tablet, Oral, Nightly sodium chloride 0.9%, 10 mL, IntraVENous, 2 times per day sodium chloride 0.9%, 5-40 mL, IntraCATHeter, q8h Continuous Infusions:lactated ringers, 250 mL, Last Rate: Stopped (05/11/24 0658) PRN Meds:PRN medications: calcium gluconate, dextrose, dextrose, glucagon (rDNA), glucose, ipratropium-albuterol, lactated ringers, magnesium sulfate OR magnesium sulfate, naloxone, ondansetron ODT OR ondansetron, oxyCODONE OR oxyCODONE, potassium chloride OR potassium chloride OR potassium chloride, potassium chloride CR, sodium chloride 0.9%, sodium chloride 0.9% Diagnostic Workup: I reviewed pertinent Laboratory results, Radiographic results, and Other Clinical Notes at the timeof today's encounter. Labs: No components found for: LABA1C No components found for: EAG Lab Results Component Value Date NA 140 05/15/2024 K 3.8 05/15/2024 CL 108 (H) 05/15/2024 CO2 24 05/15/2024 BUN 25 (H) 05/15/2024 CREATININE 0.97 05/15/2024 GLUCOSE 189 (H) 05/15/2024 CALCIUM 8.9 05/15/2024 No results found for: CHLPL, CHOL No results found for: TRIG No results found for: HDL No results found for: LDLCALC No results found for: VLDL No results found for: CHOLHDLRATIO No results found for: [id number] No results found for: TSH, A2KXATP, O9ACHJK, THYROIDAB Radiology reportsas per the Radiologist Radiology: POCT glucose meter Result Date: 05/10/2024 Performed by: [email or web address], [address] [place] [address] CLIA ID: [id number] POCT glucose meter Result Date: 05/10/2024 Performed by: [email or web address], [address] [place] [id number] CLIA ID: [id number] History/Other: Past Medical History: Past Medical History: Diagnosis Date Carotid arterial disease (HCC) Coronary artery disease Depression Diabetes mellitus (HCC) type 2 Dyslipidemia GERD (gastroesophageal reflux disease) Hypertension Malignant neoplasm of prostate (HCC) Parkinsonism (HCC) Sleep apnea pt states wears a CPAP at bedtime Past Surgical History: Past Surgical History: Procedure Laterality Date CATARACT EXTRACTION Bilateral CHOLECYSTECTOMY PILONIDAL CYST EXCISION PROSTATECTOMY TONSILLECTOMY Allergy(ies): Allergies Allergen Reactions Rosuvastatin Other Reaction(s): Flu like symptoms Tape Other Reaction(s): skin tears Family History: Family History Problem Relation Name Age of Onset Stroke Mother COPD Father Coronary artery disease Father Coronary artery disease Brother Heart attack Brother Social History: Social History Tobacco Use Smoking status: Former Average packs/day: 1 pack/day for 11.0 years (11.0 ttl pk-yrs) Types: Cigarettes Start date: 1960 Smokeless tobacco: Never Vaping Use Vaping status: Never Used Substance Use Topics Alcohol use: Never Drug use: Never Portions of the information within this encounter were entered using an electronic dictation system. Best attempts were made to edit/proofread the information prior to note completion. Despite the review of information, some errors may remain. If there are questions related to the information contained within the note please contact the signing physician directly. I spent 16 minutes with the pt which involved coordination of care, medical evaluation, review of records, and/or counseling of the pt regarding his/her condition/disease state/prognosis on the date of this note. Cosigned by Catalina Hunt MD at 05/15/2024 4:48 PM EDT Associated attestation - Catalina Hunt MD - 05/15/2024 4:48 PM EDT I independently performed a history and physical examination of the patient. I have reviewed the patient's chart including pertinent history, medications, labs, radiology, consult/progress notes, andother reports. I reviewed the resident/JULIO CESAR's note, agree with the documented findings and plan of care (with modifications noted if any), and discussed the management plan. BG not at goal with BG mostly 180-300s. Pt on Lantus/Humalog. On carb controlled diet. No significant complaints except for lower extremity edema. Denies any shortness of breath or chest pain. Noted GFR 78 BP 129/57 (BP Location: Left arm, Patient Position: Sitting) Pulse 74 Temp 36.4 C (97.5 F) (Temporal) Resp 18 Ht 5' 7 (1.702 m) Wt 217 lb 11.2 oz (98.7 kg) SpO2 100% BMI 34.10 kg/m awake, alert, not in distress, RRR, chest incision intact, abdomen soft, non- tender, significant bipedal edema, normal mood and affect. Dx: Type 2 DM with cardiac complications, on long-term insulin Type 2 DM with hyperglycemia CAD s/p CABG HLP/HTN/Obesity Body mass index is 34.1 kg/m . Anemia Plan: -will continue Lantus 28 units every morning and increase Humalog to 12 units with meals plus moderate dose sliding scale -continue blood glucose monitoring -discussed postop hyperglycemia management and goals of therapy -Continue carb controlled diet Adult diet Regular; 5 carb choices (75 gm/meal) -patient will be able to return to home DM regimen with Soliqua, Jardiance, and metformin -follow up with PCP Total time 35 minutes which include review of records, counseling, management, and coordination of care as documented in note. * Miguel Angel Handy APRN - [employer] WORK[employer] - 05/15/2024 8:20 AM EDT Images from the original note were not included. Cardiothoracic Surgery/[facility] Progress Note PATIENT NAME: Farhana Thrasher DATE: 05/15/24 HPI: 84 y.o. male referred by Dr. Elder for CABG. Patient has history of CAD, carotid artery disease, dyslipidemia, DM, and Parkinsonism. Pt saw Cardiology on 03/23/24 and reported SOB and chest burning with exertion a month prior. Stress test was ordered which showed moderate size reversible perfusion defect of the lateral wall suggestive of ischemia. Echocardiogram was also completed which demonstrated mild to moderate mitral valve insufficiency. Pt then underwent a heart catheterization on 04/24/24 which demonstrated severe multivessel CAD. Seen Dr. Velasco in OP setting on 04/25/24, agreeable to CABG and underwent surgery on 05/10/24. Surgery/Procedure: 05/10/24: s/p CABGx3 (PADILLA-LAD, RSVG-OM1, RSVG-PDA with endarterectomy), JUDY, RAYMOND with Dr. Velasco Interval History: 05/15/24, POD# 05: Afebrile, NSR on tele, BP stable, on RA and PAP at night. No acute issues noted. Objective: Last BM Date: 05/14/24 Vitals: BP: (!) 162/44, MAP (mmHg): 72, BP Method: Automatic Heart Rate: 79 Resp: 18 Temp: 36.1 C (97 F), Temp Source: Temporal BMI (Calculated): 34.09 BMP: Recent Labs 05/13/24 0456 05/14/24 0010 05/15/24 0330 NA 139 138 140 K 4.1 3.8 3.8 CL 107 107 108* CO2 24 23 24 BUN 25* 30* 25* CREATININE 1.07 1.10 0.97 CALCIUM 8.9 8.7* 8.9 MG 2.1 2.3 2.2 CBC: Recent Labs 05/13/24 0456 05/14/24 0010 05/15/24 0330 WBC 10.5 8.5 7.5 HGB 8.2* 7.6* 7.3* HCT 25.6* 23.7* 23.4* PLT 161 179 218 MCV 86.2 85.9 87.0 RDW 14.6 14.6 14.6 INR: No results for input(s): INR in the last 72 hours. Physical Exam Vitals reviewed. Constitutional: General: He is not in acute distress. Appearance: He is not ill-appearing or diaphoretic. Cardiovascular: Rate and Rhythm: Normal rate and regular rhythm. Pulses: Normal pulses. Heart sounds: No murmur heard. Pulmonary: Effort: Pulmonary effort is normal. Breath sounds: No wheezing, rhonchi or rales. Abdominal: General: There is no distension. Palpations: Abdomen is soft. Tenderness: There is no abdominal tenderness. Musculoskeletal: General: Swelling present. Skin: General: Skin is warm and dry. Capillary Refill: Capillary refill takes less than 2 seconds. Findings: Bruising present. Comments: Surgical incisions well approximated, no redness, warmth or drainage noted. Neurological: General: No focal deficit present. Mental Status: He is alert and oriented to person, place, and time. Assessment: CAD s/p CABG T2DM, A1c 7.4% Dyslipidemia Carotid artery disease Parkinsonism Malignant neoplasm of prostate s/p prostatectomy Post operative Pulm Management: Normal Post-operative Course Post-operative Atrial Fibrillation: []Yes [x] No Acute blood loss anemia/consumptive thrombocytopenia Plan: Patient status: PCU Continue aspirin, statin and BB. -Full dose aspirin for endarterectomy, no Plavix. Home Sinemet. PO pain control. Encourage PO intake. Aggressive PT/OT. PAP at night. GI prophy: PO protonix DVT prophy:TEDs, SCDs, and Heparin SubQ Pulmonary hygiene: IS and Acapella Consults: Endocrinology following. -DC on home regimen. PT/OT: IPR (05/12/24) TCC/Discharge Planning: Attempt to DC to IPR, will request auth to be started. Will need new PT/OT assessments. Central Line: []Yes [x] No Arterial Line: []Yes [x] No Benavidez: []Yes [x] No Restraints: []Yes [x] No Patient discussed and plan of day developed from multidisciplinary rounds between Cardiothoracic Surgery (Cardiothoracic Surgeon, JULIO CESAR) and Critical Care Attending A total of 22 minutes were spent between the ebtx-[id number] encounter, physical exam, reviewing the medical history, coordinating the patient's care, counseling/educating the patient, ordering medications/test/procedures, interpreting results and documenting clinical information in the patients electr onic health record on the day of the encounter. The patient was seen and examined. Cardiac Core Medications: ASA, Statin, and BB EF: 55% (RAYMOND 05/10/24) Blood Conservation: Transfused. Foiling Machine Adjuster: Dr. Elder Cosigned by Luis Parisi DO at 05/15/2024 9:02 PM EDT * Lilian Cisse MD - 05/14/2024 2:01 PM EDT Department of Internal Medicine Division of Endocrinology, Diabetes, & Metabolism Endocrinology Note Patient Name: Farhana Thrasher : 1940 AGE: 84 y.o. Room/Bed: T1-116/T1-116 A Admission Date: 05/10/2024 Visit Date: 05/14/2024 Reason for Endocrine Consult: post op heart Provider/Team Requesting Consult: CTS PCP: KELSEY MOON MD Outpt Flow Match Sofa Cutter: No ASSESSMENT: DM2 with hyperglycemia and fci insulin Stress hyperglycemia CABGX3 HLD/CAD Obesity Body mass index is 33.03 kg/m . PLAN: Glucose readings are above target Increase Lantus to 28 units every morning, he received higher dose of Lantus this morning compared to yesterday but I think he still needs a higher dose of Lantus Increase Humalog to 10 units before meals keep Humalog medium scale Most likely patient will be discharged on his home regimen for diabetes as long as there is no contraindication I discussed with patient the option of continuous glucose monitor to start in the future and what benefits he could get from being on continuous glucose monitor ICU goal <180 GMF goal <150 POCT BG ACHS Hypoglycemia management per protocol Carb controlled diet ANTICIPATED ENDOCRINE HOME GOING RECOMMENDATIONS: Optimized for Discharge from Endocrine standpoint: yes Home Going Endocrine Rx Recommendations-- Soliqua pen home dose Jardiance home dose Metformin home dose Outpt Follow Up-- PCP SUBJECTIVE/HPI: CHIEF COMPLAINT: No chief complaint on file. S/p CABGx3 Noted hx of DM2 in chart review Glucose readings are above target Denies nausea vomiting or abdominal pain Type of DM: 2 Onset of DM: Over 40 years Home DM Medication Regimen: per chart-Soliqua pen 100/33 at 45 units daily am, jardiance 25 mg po daily, metformin 1 g po bid DM control (last A1c/glucose data): Lab Results Component Value Date HGBA1C 7.4 (H) 05/04/2024 Glucose Date/Time Value Ref Range Status 05/14/2024 11:16 AM 356 (H) 70 - 100 mg/dL Final 05/14/2024 08:32 AM 225 (H) 70 - 100 mg/dL Final 05/13/2024 09:24 PM 285 (H) 70 - 100 mg/dL Final 05/13/2024 04:47 PM 185 (H) 70 - 100 mg/dL Final 05/13/2024 11:18 AM 248 (H) 70 - 100 mg/dL Final 05/13/2024 08:34 AM 276 (H) 70 - 100 mg/dL Final Review of Systems All other systems reviewed and are negative. ROS negative except for those mentioned in HPI. OBJECTIVE: Vitals: 05/14/24 1245 05/14/24 1300 05/14/24 1315 05/14/24 1330 BP: (!) 129/48 (!) 131/45 BP Location: Left arm Patient Position: Sitting Pulse: 72 70 72 72 Resp: Temp: TempSrc: SpO2: 100% 100% 100% 100% Weight: Height: Physical Exam Vitals and nursing note reviewed. Constitutional: General: He is awake. He is not in acute distress. Appearance: He is obese. He is ill-appearing. He is not toxic-appearing. Interventions: Nasal cannula in place. HENT: Head: Normocephalic. Mouth/Throat: Mouth: Mucous membranes are moist. Cardiovascular: Rate and Rhythm: Normal rate. Pulmonary: Effort: Pulmonary effort is normal. No respiratory distress. Abdominal: Tenderness: There is no guarding. Skin: General: Skin is warm and dry. Coloration: Skin is pale. Comments: Intact incision Neurological: Mental Status: He is alert and oriented to person, place, and time. Psychiatric: Mood and Affect: Mood normal. Behavior: Behavior is cooperative. 24 hour intake/output: Intake/Output Summary (Last 24 hours) at 05/14/2024 1401 Last data filed at 05/14/2024 0516 Gross per 24 hour Intake 20 ml Output -- Net 20 ml Diet: Adult diet Regular; 5 carb choices (75 gm/meal) Medications (as per EMR): HomeMeds: Current Outpatient Medications Medication Instructions amLODIPine (Norvasc) 5 MG tablet Every evening aspirin 81 mg, Every evening atorvastatin (LIPITOR) 10 mg, Nightly Calcium Carb-Cholecalciferol (CALCIUM 500 + D3 PO) 1 tablet, Daily carbidopa-levodopa (Sinemet) 25-100 MG tablet 1 tablet, 3 times daily empagliflozin (JARDIANCE) 25 mg, Daily insulin glargine-lixisenatide (Soliqua) 100-33 UNT-MCG/ML pen 45 Units, Daily before breakfast metFORMIN (GLUCOPHAGE) 1,000 mg, 2 times daily with meals metoprolol succinate XL (TOPROL-XL) 12.5 mg, Daily Miconazole Nitrate 2 % ointment PRN mupirocin (Bactroban) 2 % ointment Apply liberal amount per nostril the night before surgery and then again the morning of surgery Propylene Glycol (LUBRICANT EYE DROP OP) PRN triamcinolone (Kenalog) 0.1 % ointment 1 Application, Daily PRN Vibegron 75 MG tablet 1 tablet, Daily Scheduled Meds:acetaminophen, 1,000 mg, Oral, q8h aspirin, 325 mg, Oral, Daily atorvastatin, 40 mg, Oral, Nightly carbidopa-levodopa, 1 tablet, Oral, TID chlorhexidine, , Topical, Daily chlorhexidine, 15 mL, Mouth/Throat, BID heparin, 5,000 Units, SubCUTAneous, BID [START ON 05/15/2024] insulin glargine, 26 Units, SubCUTAneous, q AM insulin lispro, 0-12 Units, SubCUTAneous, TID WC insulin lispro, 10 Units, SubCUTAneous, TID WC Lidocaine, 1 patch, Topical, Daily magnesium hydroxide, 30 mL, Oral, Daily metoprolol tartrate, 25 mg, Oral, BID pantoprazole, 40 mg, Oral, qAM AC polyethylene glycol (PEG) 3350, 17 g, Oral, Daily senna-docusate sodium, 2 tablet, Oral, Nightly sodium chloride 0.9%, 10 mL, IntraVENous, 2 times per day sodium chloride 0.9%, 5-40 mL, IntraCATHeter, q8h Continuous Infusions:lactated ringers, 250 mL, Last Rate: Stopped (05/11/24 0658) PRN Meds:PRN medications: calcium gluconate, dextrose, dextrose, glucagon (rDNA), glucose, ipratropium-albuterol, lactated ringers, magnesium sulfate OR magnesium sulfate, naloxone, ondansetron ODT OR ondansetron, oxyCODONE OR oxyCODONE, potassium chloride OR potassium chloride OR potassium chloride, potassium chloride CR, sodium chloride 0.9%, sodium chloride 0.9% Diagnostic Workup: I reviewed pertinent Laboratory results, Radiographic results, and Other Clinical Notes at the timeof today's encounter. Labs: No components found for: LABA1C No components found for: EAG Lab Results Component Value Date NA 138 05/14/2024 K 3.8 05/14/2024 CL 107 05/14/2024 CO2 23 05/14/2024 BUN 30 (H) 05/14/2024 CREATININE 1.10 05/14/2024 GLUCOSE 196 (H) 05/14/2024 CALCIUM 8.7 (L) 05/14/2024 No results found for: CHLPL, CHOL No results found for: TRIG No results found for: HDL No results found for: LDLCALC No results found for: VLDL No results found for: CHOLHDLRATIO No results found for: [id number] No results found for: TSH, X4JEYGN, M1EGIZF, THYROIDAB Radiology reportsas per the Radiologist Radiology: POCT glucose meter Result Date: 05/10/2024 Performed by: [employer] [facility], [address] [place] [address] CLIA ID: [id number] POCT glucose meter Result Date: 05/10/2024 Performed by: [employer] [facility], [address] [place] [address] CLIA ID: [id number] History/Other: Past Medical History: Past Medical History: Diagnosis Date Carotid arterial disease (HCC) Coronary artery disease Depression Diabetes mellitus (HCC) type 2 Dyslipidemia GERD (gastroesophageal reflux disease) Hypertension Malignant neoplasm of prostate (HCC) Parkinsonism (HCC) Sleep apnea pt states wears a CPAP at bedtime Past Surgical History: Past Surgical History: Procedure Laterality Date CATARACT EXTRACTION Bilateral CHOLECYSTECTOMY PILONIDAL CYST EXCISION PROSTATECTOMY TONSILLECTOMY Allergy(ies): Allergies Allergen Reactions Rosuvastatin Other Reaction(s): Flu like symptoms Tape Other Reaction(s): skin tears Family History: Family History Problem Relation Name Age of Onset Stroke Mother COPD Father Coronary artery disease Father Coronary artery disease Brother Heart attack Brother Social History: Social History Tobacco Use Smoking status: Former Average packs/day: 1 pack/day for 11.0 years (11.0 ttl pk-yrs) Types: Cigarettes Start date: 1960 Smokeless tobacco: Never Vaping Use Vaping status: Never Used Substance Use Topics Alcohol use: Never Drug use: Never Portions of the information within this encounter were entered using an electronic dictation system. Best attempts were made to edit/proofread the information prior to note completion. Despite the review of information, some errors may remain. If there are questions related to the information contained within the note please contact the signing physician directly. I spent 35 minutes with the pt which involved coordination of care, medical evaluation, review of records, and/or counseling of the pt regarding his/her condition/disease state/prognosis on the date of this note. * Carter Le, FURNACE CHARGER - ROCK WORKER - 05/14/2024 11:37 AM EDT Images from the original note were not included. Cardiothoracic Surgery/[facility] Progress Note PATIENT NAME: Farhana Thrasher DATE: 05/14/24 HPI: 84 y.o. male referred by Dr. Elder for CABG. Patient has history of CAD, carotid artery disease, dyslipidemia, DM, and Parkinsonism. Pt saw Cardiology on 03/23/24 and reported SOB and chest burning with exertion a month prior. Stress test was ordered which showed moderate size reversible perfusion defect of the lateral wall suggestive of ischemia. Echocardiogram was also completed which demonstrate d mild to moderate mitral valve insufficiency. Pt then underwent a heart catheterization on 04/24/24 which demonstrated severe multivessel CAD. Seen Dr. Velasco in OP setting on 04/25/24, agreeable to CABG and underwent surgery on 05/10/24. Surgery/Procedure: 05/10/24: s/p CABGx3 (PADILLA-LAD, RSVG-OM1, RSVG-PDA with endarterectomy), LEVH, RAYMOND with Dr. Velasco Interval History: 05/14/24, POD# 4: VSS. No acute issues overnight. Stated he had a good night besides having a bad dream. Dispo planning - goal likely IPR at beginning of week. Will need to coordinate with TCC Review of Systems Constitutional: Negative for diaphoresis, fatigue and fever. Respiratory: Negative for cough, shortness of breath and wheezing. Cardiovascular: Negative for chest pain, palpitations and leg swelling. Gastrointestinal: Negative for abdominal distention, constipation and diarrhea. Skin: Negative for color change, pallor and rash. Objective: Last BM Date: 05/14/24 Vitals: BP: 111/94, MAP (mmHg): 101, BP Method: Automatic Heart Rate: 76 Resp: 18 Temp: 36.1 C (96.9 F), Temp Source: Temporal BMI (Calculated): 33.02 CXR: Pacing wires: V wires BMP: Recent Labs 05/12/24 0410 05/13/24 0456 05/14/24 0010 NA 137 139 138 K 4.3 4.1 3.8 CL 107 107 107 CO2 22* 24 23 BUN 18 25* 30* CREATININE 0.82 1.07 1.10 CALCIUM 8.4* 8.9 8.7* MG 2.0 2.1 2.3 CBC: Recent Labs 05/12/24 0410 05/13/24 0456 05/14/24 0010 WBC 9.3 10.5 8.5 HGB 7.5* 8.2* 7.6* HCT 22.9* 25.6* 23.7* PLT 103* 161 179 MCV 84.8 86.2 85.9 RDW 14.8 14.6 14.6 INR: Recent Labs 05/12/24 0410 INR 1.2* Physical Exam Cardiovascular: Rate and Rhythm: Normal rate and regular rhythm. Heart sounds: Normal heart sounds. No murmur heard. No friction rub. Pulmonary: Effort: Pulmonary effort is normal. Skin: General: Skin is warm and dry. Capillary Refill: Capillary refill takes less than 2 seconds. Findings: Bruising and ecchymosis present. Comments: Surgical Incisions: well approximate; clean dry with no drainage noted. Surrounding skin no redness, warmth, or signs of infection noted. Neurological: Mental Status: He is alert. Psychiatric: Behavior: Behavior is cooperative. Assessment: CAD s/p CABG T2DM, A1c 7.4% Dyslipidemia Carotid artery disease Parkinsonism Malignant neoplasm of prostate s/p prostatectomy Post operative Pulm Management: Normal Post-operative Course Post-operative Atrial Fibrillation: []Yes [x] No Acute blood loss anemia/consumptive thrombocytopenia Plan: Patient Status: Telemetry Medications: No changes to medications Continue ASA, statin and BB Full dose ASA due to endarterectomy, no plavix needed per surgeon Home Sinemet GI prophy: PO protonix DVT prophy: Heparin SubQ Bowel: senna/miralax Interventions: Home CPAP at Pulmonary hygiene: IS and Acapella TEDs, SCDs Restraints: []Yes [x] No Consults: Endocrinology following- insulin management D/c recs: TBD; continue home meds; f/u with PCP Therapies: PT: continue to assess, IPR 05/12 OT: IPR 05/11 Disposition: TBD - lIPR vs home early this week Tele Status A total of 20 minutes were spent between the [id number]-zn-utbu encounter, physical exam, reviewing the medical history, coordinating the patient's care, counseling/educating the patient, ordering medications/test/procedures, interpreting results and documenting clinical information in the patients electr on health record on the day of the encounter. The patient was seen and examined independently andrelevant data reviewed by myself. A full chart review was performed. Patient discussed and plan of day developed from multidisciplinary rounds between Cardiothoracic Surgery (Cardiothoracic Surgeon, JULIO CESAR) and Critical Care Attending Cardiac Core Medications: ASA, Statin, and BB EF: 55% (RAYMOND 05/10/24) Blood Conservation: Transfused Foiling Machine Adjuster: Dr. Elder Cosigned by Luz Hough DO at 05/14/2024 2:29 PM EDT Associated attestation - Luz Hough DO - 05/14/2024 2:29 PM EDT I have personally performed a zhsz-uh-cwnk diagnostic evaluation on this patient on date of service05/14/24. History, labs, imaging studies, and electronic medical record have been reviewed by me. This note documented by the []greenhouse grower [x]JULIO CESAR reflects my history, exam, and medical decision making. I have reviewed and agree with the care plan. Changes were made in the orders as necessary. ROSdocumentation was reviewed and negative unless otherwise stated in HPI. Assessment: -mvCAD s/p CABGx3 05/10 -acute post op blood loss anemia -mild carotid artery disease -DM2 with hyperglycemia (A1c 7.4) -Parkinson's disease -hx Prostate CA s/p prostatectomy Plan: -cont ASA, statin, and BB -cont home Sinemet -encourage pulm toilet, IS, up to chair, progressive mobility. Cont home cpap at night. -Cont PT/OT-current rec is IPR -endocrine following, insulin per their recs -Dispo: IPR vs home early this week * Carter Le, FURNACE CHARGER - ROCK WORKER - 05/13/2024 10:12 AM EDT Images from the original note were not included. Cardiothoracic Surgery/[facility] Progress Note PATIENT NAME: Farhana Thrasher DATE: 05/13/24 HPI: 84 y.o. male referred by Dr. Elder for CABG. Patient has history of CAD, carotid artery disease, dyslipidemia, DM, and Parkinsonism. Pt saw Cardiology on 03/23/24 and reported SOB and chest burning with exertion a month prior. Stress test was ordered which showed moderate size reversible perfusion defect of the lateral wall suggestive of ischemia. Echocardiogram was also completed which demonstrated mild to moderate mitral valve insufficiency. Pt then underwent a heart catheterization on 04/24/24 which demonstrated severe multivessel CAD. Seen Dr. Velasco in OP setting on 04/25/24, agreeable to CABG and underwent surgery on 05/10/24. Surgery/Procedure: 05/10/24: s/p CABGx3 (PADILLA-LAD, RSVG-OM1, RSVG-PDA with endarterectomy), LEVH, RAYMOND with Dr. Velasco Interval History: 05/13/24, POD# 3: VSS; on RA - no acute issues noted overnight. Getting stronger each day. Still progressing from physical standpoint. 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 He is open to IPR. Pain controlled currently. Does complain of neck pain - likely related to positioning intraoperatively. Review of Systems Constitutional: Positive for activity change. Negative for diaphoresis, fatigue and fever. Respiratory: Negative for cough, shortness of breath and wheezing. Cardiovascular: Negative for chest pain, palpitations and leg swelling. Gastrointestinal: Negative for abdominal distention, constipation and diarrhea. Musculoskeletal: Positive for gait problem. Neck pain Skin: Negative for color change, pallor and rash. Objective: Last BM Date: 05/13/24 Vitals: BP: 122/60, MAP (mmHg): 76, BP Method: Automatic Heart Rate: 69 Resp: 15 Temp: 36.7 C (98 F), Temp Source: Temporal BMI (Calculated): 33.67 CXR: Pacing wires: V wires BMP: Recent Labs 05/10/24 1104 05/10/24 1348 05/10/24 1739 05/11/24 0459 05/12/24 0410 05/13/24 0456 NA 139 141 < > 140 137 139 K 3.6 3.1* < > 4.4 4.3 4.1 CL 111* 112* < > 113* 107 107 CO2 22* 21* < > 21* 22* 24 BUN 17 17 < > 14 18 25* CREATININE 0.84 0.89 < > 0.80 0.82 1.07 CALCIUM 9.8 8.4* < > 8.1* 8.4* 8.9 MG 3.4* 2.6 -- 2.1 2.0 2.1 PHOS 3.4 4.0 -- -- -- -- < > = values in this interval not displayed. CBC: Recent Labs 05/10/24200205/10/24 2210 05/11/24 0103 05/11/24 0730 05/12/24 0410 05/13/24 0456 WBC 8.8 -- -- -- 9.3 10.5 HGB 7.3* < > 7.7* 7.9 7.5* 8.2* HCT 22.2* -- 23.7* -- 22.9* 25.6* PLT 110* -- -- -- 103* 161 MCV 85.7 -- -- -- 84.8 86.2 RDW 14.3 -- -- -- 14.8 14.6 < > = values in this interval not displayed. INR: Recent Labs 05/10/24 1104 05/11/24 0459 05/12/24 0410 INR 1.3* 1.1 1.2* Physical Exam Cardiovascular: Rate and Rhythm: Normal rate and regular rhythm. Occasional Extrasystoles are present. Heart sounds: Normal heart sounds. No murmur heard. No friction rub. Pulmonary: Effort: Pulmonary effort is normal. Skin: General: Skin is warm and dry. Capillary Refill: Capillary refill takes less than 2 seconds. Findings: Bruising and ecchymosis present. Comments: Surgical Incisions: well approximate; clean dry with no drainage noted. Surrounding skin no redness, warmth, or signs of infection noted. Neurological: Mental Status: He is alert. Psychiatric: Behavior: Behavior is cooperative. Assessment: CAD s/p CABG T2DM, A1c 7.4% Dyslipidemia Carotid artery disease Parkinsonism Malignant neoplasm of prostate s/p prostatectomy Post operative Pulm Management: Normal Post-operative Course Post-operative Atrial Fibrillation: []Yes [x] No Acute blood loss anemia/consumptive thrombocytopenia Plan: Patient Status: Telemetry Medications: Continue ASA, statin and BB Full dose ASA due to endarterectomy, no plavix needed per surgeon Increase BB Home Sinemet GI prophy: PO protonix DVT prophy: Heparin SubQ Bowel: senna/miralax Interventions: Home CPAP at HS Pulmonary hygiene: IS and Acapella TEDs, SCDs Restraints: []Yes [x] No Consults: Endocrinology following- insulin management D/c recs: TBD; continue home meds; f/u with PCP Therapies: PT: continue to assess, IPR 05/12 OT: IPR 05/11 Disposition: TBD - likely here through weekend; IPR vs home dependent on how he progresses early next week. Tele Status A total of 21 minutes were spent between the [id number] encounter, physical exam, reviewing the medical history, coordinating the patient's care, counseling/educating the patient, ordering medications/test/procedures, interpreting results and documenting clinical information in the patients electr onic health record on the day of the encounter. The patient was seen and examined independently andrelevant data reviewed by myself. A full chart review was performed. Patient discussed and plan of day developed from multidisciplinary rounds between Cardiothoracic Surgery (Cardiothoracic Surgeon, JULIO CESAR) and Critical Care Attending Cardiac Core Medications: ASA, Statin, and BB EF: 55% (RAYMOND 05/10/24) Blood Conservation: Transfused Foiling Machine Adjuster: Dr. Elder Cosigned by Luz Hough DO at 05/13/2024 12:21 PM EDT Associated attestation - Luz Hough DO - 05/13/2024 12:21 PM EDT I have personally performed a [id number] diagnostic evaluation on this patient on date of service05/13/24. History, labs, imaging studies, and electronic medical record have been reviewed by me. This note documented by the []greenhouse grower [x]JULIO CESAR reflects my history, exam, and medical decision making. I have reviewed and agree with the care plan. Changes were made in the orders as necessary. ROSdocumentation was reviewed and negative unless otherwise stated in HPI. Assessment: -mvCAD s/p CABGx3 05/10 -acute post op blood loss anemia -mild carotid artery disease -DM2 with hyperglycemia (A1c 7.4) -Parkinson's disease -hx Prostate CA s/p prostatectomy Plan: -cont supplemental 02, wean as able -cont ASA and statin. Increase BB -cont home Sinemet -encourage pulm toilet, IS, up to chair. Cont PT/OT-current rec is IPR -endocrine following, insulin per their recs * Lilian Cisse MD - 05/13/2024 9:31 AM EDT Department of Internal Medicine Division of Endocrinology, Diabetes, & Metabolism Endocrinology Note Patient Name: Farhana Thrasher : 1940 AGE: 84 y.o. Room/Bed: T1-116/T1-116 A Admission Date: 05/10/2024 Visit Date: 05/13/2024 Reason for Endocrine Consult: post op heart Provider/Team Requesting Consult: CTS PCP: KELSEY MOON MD Outpt Flow Match Sofa Cutter: No ASSESSMENT: DM2 with hyperglycemia and buttermaker helper insulin Stress hyperglycemia CABGX3 HLD/CAD Obesity Body mass index is 33.67 kg/m . PLAN: Glucose readings are above target Increase Lantus to 22 units every morning Increase Humalog to 8 units before meals keep Humalog medium scale Most likely patient will be discharged on his home regimen for diabetes as long as there is no contraindication ICU goal <180 GMF goal <150 POCT BG ACHS Hypoglycemia management per protocol Carb controlled diet ANTICIPATED ENDOCRINE HOME GOING RECOMMENDATIONS: Optimized for Discharge from Endocrine standpoint: yes Home Going Endocrine Rx Recommendations-- Soliqua pen home dose Jardiance home dose Metformin home dose Outpt Follow Up-- PCP SUBJECTIVE/HPI: CHIEF COMPLAINT: No chief complaint on file. S/p CABGx3 Noted hx of DM2 in chart review Glucose readings are slightly above target Blood glucose this morning was above target significantly because it was obtained after breakfast Denies nausea vomiting or abdominal pain Reported muscle aches at his neck Type of DM: 2 Onset of DM: Over 40 years Home DM Medication Regimen: per chart-Soliqua pen 100/33 at 45 units daily am, jardiance 25 mg po daily, metformin 1 g po bid DM control (last A1c/glucose data): Lab Results Component Value Date HGBA1C 7.4 (H) 05/04/2024 Glucose Date/Time Value Ref Range Status 05/13/2024 08:34 AM 276 (H) 70 - 100 mg/dL Final 05/12/2024 09:37 PM 185 (H) 70 - 100 mg/dL Final 05/12/2024 05:23 PM 213 (H) 70 - 100 mg/dL Final 05/12/2024 10:50 AM 168 (H) 70 - 100 mg/dL Final 05/12/2024 07:21 AM 200 (H) 70 - 100 mg/dL Final 05/11/2024 08:50 PM 192 (H) 70 - 100 mg/dL Final Review of Systems All other systems reviewed and are negative. ROS negative except for those mentioned in HPI. OBJECTIVE: Vitals: 05/13/24 0600 05/13/24 0700 05/13/24 0715 05/13/24 0730 BP: (!) 124/47 122/60 Pulse: 73 66 70 69 Resp: Temp: TempSrc: SpO2: 98% 100% 99% 100% Weight: Height: Physical Exam Vitals and nursing note reviewed. Constitutional: General: He is awake. He is not in acute distress. Appearance: He is obese. He is ill-appearing. He is not toxic-appearing. Interventions: Nasal cannula in place. HENT: Head: Normocephalic. Mouth/Throat: Mouth: Mucous membranes are moist. Cardiovascular: Rate and Rhythm: Normal rate. Pulmonary: Effort: Pulmonary effort is normal. No respiratory distress. Abdominal: Tenderness: There is no guarding. Skin: General: Skin is warm and dry. Coloration: Skin is pale. Comments: Intact incision Neurological: Mental Status: He is alert and oriented to person, place, and time. Psychiatric: Mood and Affect: Mood normal. Behavior: Behavior is cooperative. 24 hour intake/output: Intake/Output Summary (Last 24 hours) at 05/13/2024 0931 Last data filed at 05/13/2024 0500 Gross per 24 hour Intake -- Output 515 ml Net -515 ml Diet: Adult diet Regular; 5 carb choices (75 gm/meal) Medications (as per EMR): HomeMeds: Current Outpatient Medications Medication Instructions amLODIPine (Norvasc) 5 MG tablet Every evening aspirin 81 mg, Every evening atorvastatin (LIPITOR) 10 mg, Nightly Calcium Carb-Cholecalciferol (CALCIUM 500 + D3 PO) 1 tablet, Daily carbidopa-levodopa (Sinemet) 25-100 MG tablet 1 tablet, 3 times daily empagliflozin (JARDIANCE) 25 mg, Daily insulin glargine-lixisenatide (Soliqua) 100-33 UNT-MCG/ML pen 45 Units, Daily before breakfast metFORMIN (GLUCOPHAGE) 1,000 mg, 2 times daily with meals metoprolol succinate XL (TOPROL-XL) 12.5 mg, Daily Miconazole Nitrate 2 % ointment PRN mupirocin (Bactroban) 2 % ointment Apply liberal amount per nostril the night before surgery and then again the morning of surgery Propylene Glycol (LUBRICANT EYE DROP OP) PRN triamcinolone (Kenalog) 0.1 % ointment 1 Application, Daily PRN Vibegron 75 MG tablet 1 tablet, Daily Scheduled Meds:acetaminophen, 1,000 mg, Oral, q8h aspirin, 325 mg, Oral, Daily atorvastatin, 40 mg, Oral, Nightly carbidopa-levodopa, 1 tablet, Oral, TID chlorhexidine, , Topical, Daily chlorhexidine, 15 mL, Mouth/Throat, BID heparin, 5,000 Units, SubCUTAneous, BID insulin glargine, 18 Units, SubCUTAneous, q AM insulin lispro, 0-12 Units, SubCUTAneous, TID WC insulin lispro, 6 Units, SubCUTAneous, TID WC Lidocaine, 1 patch, Topical, Daily magnesium hydroxide, 30 mL, Oral, Daily metoprolol tartrate, 12.5 mg, Oral, BID mupirocin, , Nasal, BID pantoprazole, 40 mg, Oral, qAM AC polyethylene glycol (PEG) 3350, 17 g, Oral, Daily senna-docusate sodium, 2 tablet, Oral, Nightly sodium chloride 0.9%, 10 mL, IntraVENous, 2 times per day sodium chloride 0.9%, 5-40 mL, IntraCATHeter, q8h Continuous Infusions:lactated ringers, 250 mL, Last Rate: Stopped (05/11/24 0658) PRN Meds:PRN medications: calcium gluconate, dextrose, dextrose, glucagon (rDNA), glucose, ipratropium-albuterol, lactated ringers, magnesium sulfate OR magnesium sulfate, morphine sulfate ORmorphine sulfate, naloxone, ondansetron ODT OR ondansetron, oxyCODONE OR oxyCODONE, potassium chloride OR potassium chloride OR potassium chloride, potassium chloride CR, sodium chloride, sodium chloride, sodium chloride 0.9%, sodium chloride 0.9% Diagnostic Workup: I reviewed pertinent Laboratory results, Radiographic results, and Other Clinical Notes at the timeof today's encounter. Labs: No components found for: LABA1C No components found for: EAG Lab Results Component Value Date NA 139 05/13/2024 K 4.1 05/13/2024 CL 107 05/13/2024 CO2 24 05/13/2024 BUN 25 (H) 05/13/2024 CREATININE 1.07 05/13/2024 GLUCOSE 183 (H) 05/13/2024 CALCIUM 8.9 05/13/2024 No results found for: CHLPL, CHOL No results found for: TRIG No results found for: HDL No results found for: LDLCALC No results found for: VLDL No results found for: CHOLHDLRATIO No results found for: [id number] No results found for: TSH, [id number], R1CVFOZ, THYROIDAB Radiology reportsas per the Radiologist Radiology: POCT glucose meter Result Date: 05/10/2024 Performed by: [facility], [address] [place] [id number] CLIA ID: [id number] POCT glucose meter Result Date: 05/10/2024 Performed by: [facility], [address] [place] [id number] CLIA ID: [id number] History/Other: Past Medical History: Past Medical History: Diagnosis Date Carotid arterial disease (HCC) Coronary artery disease Depression Diabetes mellitus (HCC) type 2 Dyslipidemia GERD (gastroesophageal reflux disease) Hypertension Malignant neoplasm of prostate (HCC) Parkinsonism (HCC) Sleep apnea pt states wears a CPAP at bedtime Past Surgical History: Past Surgical History: Procedure Laterality Date CATARACT EXTRACTION Bilateral CHOLECYSTECTOMY PILONIDAL CYST EXCISION PROSTATECTOMY TONSILLECTOMY Allergy(ies): Allergies Allergen Reactions Rosuvastatin Other Reaction(s): Flu like symptoms Tape Other Reaction(s): skin tears Family History: Family History Problem Relation Name Age of Onset Stroke Mother COPD Father Coronary artery disease Father Coronary artery disease Brother Heart attack Brother Social History: Social History Tobacco Use Smoking status: Former Average packs/day: 1 pack/day for 11.0 years (11.0 ttl pk-yrs) Types: Cigarettes Start date: 1960 Smokeless tobacco: Never Vaping Use Vaping status: Never Used Substance Use Topics Alcohol use: Never Drug use: Never Portions of the information within this encounter were entered using an electronic dictation system. Best attempts were made to edit/proofread the information prior to note completion. Despite the review of information, some errors may remain. If there are questions related to the information contained within the note please contact the signing physician directly. I spent 35 minutes with the pt which involved coordination of care, medical evaluation, review of records, and/or counseling of the pt regarding his/her condition/disease state/prognosis on the date of this note. * Miguel Angel Handy, TARYN - ROCK WORKER - 05/12/2024 1:17 PM EDT Images from the original note were not included. Cardiothoracic Surgery Note PATIENT NAME: Farhana Thrasher : 1940 (84 y.o.) TODAY'S DATE: 05/12/2024 Objective: BP (!) 96/48 Pulse 70 Temp 36.9 C (98.5 F) (Temporal) Resp 15 Ht 5' 7 (1.702 m) Wt 202 lb 4.8 oz (91.8 kg) SpO2 100% BMI 31.68 kg/m Chest tubes assessed: no air leak, subcutaneous air noted. Chest tubes removed without difficulty and dressing applied. Patient tolerated well. Patient and nurse educated on possible complications toobserve for. Will continue to monitor. * Sosa Alfred - 05/12/2024 12:11 PM EDT Images from the original note were not included. PHYSICAL THERAPY [facility] Treatment Note Name/MRN: Marcus Thrasher ([id number]) Date of : 1940 Age: 84 y.o. Room/Bed: T1-116/T1-116 A Discharge Recommendation: Continue to assess pending progress, IP Rehab Other: owns a cane Prior Level of Function Prior Level of ADL Function: Required Assist Prior Level of Mobility: Independent; Device: Straight Cane and bilat AFO Prior Level of Transfers: Independent Assessment Pt required Mod A for ambulation plus 1 person for line management, pt needed assist with managing device. Mod A for sit to stand transfers. Required cues for sternal precautions. Recommend IP Rehab after discharge but continue to assess. Subjective Pt seated in reclining chair, present. Agreeable and pleasant to PT. Pain: C/o R shoulder pain with some P&C due to previous rotator cuff tear Medical Precautions: No active isolations Proper PPE donned/doffed in accordance with facility standards. Fall Risk: [place] Fall Risk Score: 45 (High Risk) Precautions/Restrictions: Sternal Precautions: No Pushing, No Pulling, No Lifting Greater Than 10 lbs and No lifting greater than 10 lbs. Ok for modified UE precautions using Keep Your Move in the Tube technique Lines/Drains/Airways: tele, chest tube x 2, PIV, 2L O2, benavidez Fall Precautions Overall Cognitive Status: WNL Overall Orientation Status: Oriented to Time and Oriented to Person Family/Caregiver Present: spouse Objective Transfers/Mobility Sit to stand: Mod Assist Stand to sit: Mod Assist Cued for sternal precautions Ambulation Ambulation 1 Assistive device(s) used: Nezzie Assist level: Mod Assist Distance (ft): 100' Quality of gait: uneven step length, narrow MARIBEL, instability through all phases Cued to slow down Required assistance with managing device B AFOs already donned Exercises Exercises Comments: P&C 1-5 x10 reps, 6-9 x5 reps due to fatigue IS: 9963-3568 mL x5 reps Acapella: x5 reps Plan Continue acute PT per plan of care. Safety/Education Safety Safety Devices in place: call light within reach, left in chair, and patient at risk for falls Restraints: No Education Transfers, ambulation, therex, IS, sternal precautions, and acapella Outcome Measures AM-PAC AM-PAC Inpatient Mobility Raw Score (No Stairs) : 12 JH-HLM -HLM Score: Walked 25 ft or more (i.e. walked outside of room) Goals Patient Stated Goal: To go home. Encounter Problems Encounter Problems (Active) Cardiac Patient will perform bed mobility with modified independence in order to improve independence and prepare for out of bed mobility. (Not Addressed) Start: 05/11/24 Expected End: 06/08/24 Patient will complete sit to stand transfer with modified independence to straight cane and rollingwalker in order to improve safety and prepare for out of bed mobility. (Progressing) Start: 05/11/24 Expected End: 06/08/24 Patient will ambulate 250 feet or ambulate 5 minutes with supervision with RPE of 14 or lower. (Progressing) Start: 05/11/24 Expected End: 06/08/24 Patient will ascend and descend 3 # stairs with supervision rail for balance only. (Not Addressed) Start: 05/11/24 Expected End: 06/08/24 Patient will be independent with P&C exercises. (Progressing) Start: 05/11/24 Expected End: 06/08/24 Patient will be independent with managing secretions and home walking program. (Progressing) Start: 05/11/24 Expected End: 06/08/24 Therapy Time Individual Co-treatment Time In 1138 Time Out 1204 Minutes 26 Timed Code Treatment Minutes: 26 Minutes (gait & tp) Sosa Alfred, SPTA Sravani Arguello, EXECUTIVE DIRECTOR OF NURSING Cosigned by Moses Biggs, PT at 05/12/2024 12:53 PM EDT * Jasmyn Mcnally, FURNACE CHARGER - ROCK WORKER - 05/12/2024 9:08 AM EDT Department of Internal Medicine Division of Endocrinology, Diabetes, & Metabolism Endocrinology Note Patient Name: Farhana Thrasher : 1940 AGE: 84 y.o. Room[facility]Bed: [facility] A Admission Date: 05/10/2024 Visit Date: 05/12/2024 Reason for Endocrine Consult: post op heart Provider/Team Requesting Consult: CTS PCP: KELSEY MOON MD Outpt Flow Match Sofa Cutter: No ASSESSMENT: DM2 with hyperglycemia and fci insulin Stress hyperglycemia CABGX3 HLD/CAD Obesity Body mass index is 31.68 kg/m . PLAN: continue Lantus 18 units daily AM Keep Humalog /07/28 keep Humalog medium scale ICU goal <180 GMF goal <150 POCT BG ACHS Hypoglycemia management per protocol Carb controlled diet ANTICIPATED ENDOCRINE HOME GOING RECOMMENDATIONS: Optimized for Discharge from Endocrine standpoint: No Home Going Endocrine Rx Recommendations-- Tbd- if no CI resume home regimen Soliqua pen Jardiance home dose Metformin home dose Outpt Follow Up-- Can offer SUBJECTIVE/HPI: CHIEF COMPLAINT: No chief complaint on file. S/p CABGx3 Noted hx of DM2 in chart review BGL below-stable In bed Awake alert Vss ra Ct in place Eating ok- had bfast -denies nv abd pain Spoke with nursing Type of DM: 2 Onset of DM: Over 40 years Home DM Medication Regimen: per chart-Soliqua pen 100/33 at 45 units daily am, jardiance 25 mg po daily, metformin 1 g po bid DM control (last A1c/glucose data): Lab Results Component Value Date HGBA1C 7.4 (H) 05/04/2024 Glucose Date/Time Value Ref Range Status 05/12/2024 07:21 AM 200 (H) 70 - 100 mg/dL Final 05/11/2024 08:50 PM 192 (H) 70 - 100 mg/dL Final 05/11/2024 04:23 PM 137 (H) 70 - 100 mg/dL Final 05/11/2024 12:12 PM 127 (H) 70 - 100 mg/dL Final 05/11/2024 10:23 AM 150 (H) 70 - 100 mg/dL Final 05/11/2024 09:08 AM 148 (H) 70 - 100 mg/dL Final Review of Systems All other systems reviewed and are negative. ROS negative except for those mentioned in HPI. OBJECTIVE: Vitals: 05/12/24 0530 05/12/24 0600 05/12/24 0630 05/12/24 0730 BP: Pulse: 86 95 87 Resp: 15 Temp: TempSrc: SpO2: 98% 96% 94% 95% Weight: 202 lb 4.8 oz (91.8 kg) Height: Physical Exam Vitals and nursing note reviewed. Constitutional: General: He is awake. He is not in acute distress. Appearance: He is obese. He is ill-appearing. He is not toxic-appearing. Interventions: Nasal cannula in place. HENT: Head: Normocephalic. Mouth/Throat: Mouth: Mucous membranes are moist. Cardiovascular: Rate and Rhythm: Normal rate. Pulmonary: Effort: Pulmonary effort is normal. No respiratory distress. Abdominal: Tenderness: There is no guarding. Skin: General: Skin is warm and dry. Coloration: Skin is pale. Comments: Intact incision Neurological: Mental Status: He is alert and oriented to person, place, and time. Psychiatric: Mood and Affect: Mood normal. Behavior: Behavior is cooperative. 24 hour intake/output: Intake/Output Summary (Last 24 hours) at 05/12/2024 0909 Last data filed at 05/12/2024 0600 Gross per 24 hour Intake 2278 ml Output 1650 ml Net 628 ml Diet: Adult diet Regular; 5 carb choices (75 gm/meal) Medications (as per EMR): HomeMeds: Current Outpatient Medications Medication Instructions amLODIPine (Norvasc) 5 MG tablet Every evening aspirin 81 mg, Every evening atorvastatin (LIPITOR) 10 mg, Nightly Calcium Carb-Cholecalciferol (CALCIUM 500 + D3 PO) 1 tablet, Daily carbidopa-levodopa (Sinemet) 25-100 MG tablet 1 tablet, 3 times daily empagliflozin (JARDIANCE) 25 mg, Daily insulin glargine-lixisenatide (Soliqua) 100-33 UNT-MCG/ML pen 45 Units, Daily before breakfast metFORMIN (GLUCOPHAGE) 1,000 mg, 2 times daily with meals metoprolol succinate XL (TOPROL-XL) 12.5 mg, Daily Miconazole Nitrate 2 % ointment PRN mupirocin (Bactroban) 2 % ointment Apply liberal amount per nostril the night before surgery and then again the morning of surgery Propylene Glycol (LUBRICANT EYE DROP OP) PRN triamcinolone (Kenalog) 0.1 % ointment 1 Application, Daily PRN Vibegron 75 MG tablet 1 tablet, Daily Scheduled Meds:acetaminophen, 1,000 mg, Oral, q8h aspirin, 325 mg, Oral, Daily atorvastatin, 40 mg, Oral, Nightly carbidopa-levodopa, 1 tablet, Oral, TID chlorhexidine, , Topical, Daily chlorhexidine, 15 mL, Mouth/Throat, BID heparin, 5,000 Units, SubCUTAneous, BID insulin glargine, 18 Units, SubCUTAneous, q AM insulin lispro, 0-12 Units, SubCUTAneous, TID WC insulin lispro, 6 Units, SubCUTAneous, TID WC Lidocaine, 1 patch, Topical, Daily metoprolol tartrate, 12.5 mg, Oral, BID mupirocin, , Nasal, BID pantoprazole, 40 mg, Oral, qAM AC polyethylene glycol (PEG) 3350, 17 g, Oral, Daily senna-docusate sodium, 2 tablet, Oral, Nightly sodium chloride 0.9%, 10 mL, IntraVENous, 2 times per day sodium chloride 0.9%, 5-40 mL, IntraCATHeter, q8h Continuous Infusions:lactated ringers, 250 mL, Last Rate: Stopped (05/11/24 0658) PRN Meds:PRN medications: calcium gluconate, dextrose, dextrose, glucagon (rDNA), glucose, ipratropium-albuterol, lactated ringers, magnesium hydroxide, magnesium sulfate OR magnesium sulfate, morphine sulfate OR morphine sulfate, naloxone, ondansetron ODT OR ondansetron, oxyCODONE OR oxyCODONE, potassium chloride OR potassium chloride OR potassium chloride, potassium chloride CR, sodium chloride, sodium chloride, sodium chloride 0.9%, sodium chloride 0.9% Diagnostic Workup: I reviewed pertinent Laboratory results, Radiographic results, and Other Clinical Notes at the timeof today's encounter. Labs: No components found for: LABA1C No components found for: EAG Lab Results Component Value Date NA 137 05/12/2024 K 4.3 05/12/2024 CL 107 05/12/2024 CO2 22 (L) 05/12/2024 BUN 18 05/12/2024 CREATININE 0.82 05/12/2024 GLUCOSE 164 (H) 05/12/2024 CALCIUM 8.4 (L) 05/12/2024 No results found for: CHLPL, CHOL No results found for: TRIG No results found for: HDL No results found for: LDLCALC No results found for: VLDL No results found for: CHOLHDLRATIO No results found for: [id number] No results found for: TSH, [id number], J0GAJTR, THYROIDAB Radiology reportsas per the Radiologist Radiology: POCT glucose meter Result Date: 05/10/2024 Performed by: [facility], [address] [place] [id number] CLIA ID: [id number] POCT glucose meter Result Date: 05/10/2024 Performed by: [facility], [address] [place] [id number] CLIA ID: [id number] History/Other: Past Medical History: Past Medical History: Diagnosis Date Carotid arterial disease (HCC) Coronary artery disease Depression Diabetes mellitus (HCC) type 2 Dyslipidemia GERD (gastroesophageal reflux disease) Hypertension Malignant neoplasm of prostate (HCC) Parkinsonism (HCC) Sleep apnea pt states wears a CPAP at bedtime Past Surgical History: Past Surgical History: Procedure Laterality Date CATARACT EXTRACTION Bilateral CHOLECYSTECTOMY PILONIDAL CYST EXCISION PROSTATECTOMY TONSILLECTOMY Allergy(ies): Allergies Allergen Reactions Rosuvastatin Other Reaction(s): Flu like symptoms Tape Other Reaction(s): skin tears Family History: Family History Problem Relation Name Age of Onset Stroke Mother COPD Father Coronary artery disease Father Coronary artery disease Brother Heart attack Brother Social History: Social History Tobacco Use Smoking status: Former Average packs/day: 1 pack/day for 11.0 years (11.0 ttl pk-yrs) Types: Cigarettes Start date: 1960 Smokeless tobacco: Never Vaping Use Vaping status: Never Used Substance Use Topics Alcohol use: Never Drug use: Never Portions of the information within this encounter were entered using an electronic dictation system. Best attempts were made to edit/proofread the information prior to note completion. Despite the review of information, some errors may remain. If there are questions related to the information contained within the note please contact the signing physician directly. I spent 15 minutes with the pt which involved coordination of care, medical evaluation, review of records, and/or counseling of the pt regarding his/her condition/disease state/prognosis on the date of this note. Cosigned by Lilian Cisse MD at 05/12/2024 1:56 PM EDT Associated attestation - Lilian Cisse MD - 05/12/2024 1:56 PM EDT I have personally performed a face to face diagnostic evaluation on this patient. In addition, I have reviewed the resident's/AUTOMOTIVE SERVICE WRITER/FOOTBALL PAD REPAIRER's care plan and agree with those findings I have performed a substantive portion of the the medical decision making. My findings are as follows: Glucose readings so far reasonable Denies complaints Vitals: BP (!) 96/48 Pulse 70 Temp 36.9 C (98.5 F) (Temporal) Resp 15 Ht 5' 7 (1.702 m) Wt 202 lb 4.8 oz (91.8 kg) SpO2 100% BMI 31.68 kg/m Respiratory: No respiratory distress Cardiovascular System:o lower extremity edema Abdomen: obese A/P Type 2 diabetes with hyperglycemia with long-term insulin use Type 2 diabetes with cardiac complication Body mass index is 33.05 kg/m . Continue Lantus 18 units every morning Continue Humalog 6 units before meals with medium dose correction Discussed the case with his nurse Most likely patient will be discharged on his home regimen for diabetes as long as there is no contraindication I spent 20 minutes with the pt which involved in coordination of care, medical evaluation, review of records, and/or counseling of the pt regarding the condition/disease state/prognosis on the date of this note. Old records including available PCP, ED notes and or other specialists notes are reviewed. LABs and/or imaging are reviewed as detailed in the resident's/AUTOMOTIVE SERVICE WRITER/FOOTBALL PAD REPAIRER's note * Miguel Angel Handy, FURNACE CHARGER - ROCK WORKER - 05/12/2024 7:10 AM EDT Images from the original note were not included. Cardiothoracic Surgery/[facility] Progress Note PATIENT NAME: Farhana Thrasher DATE: 05/12/24 HPI: Marcus Thrasher is a 84 y.o. male referred by Dr. Elder for CABG. Patient has history of CAD, carotid artery disease, dyslipidemia, DM, and Parkinsonism. Pt saw Cardiology on 03/23/24 and reported SOBand chest burning with exertion a month prior. Stress test was ordered which showed moderate size reversible perfusion defect of the lateral wall suggestive of ischemia. Echocardiogram was also completed which demonstrated mild to moderate mitral valve insufficiency. Pt then underwent a heart catheterization on 04/24/24 which demonstrated severe multivessel CAD. Seen Dr. Velasco in OP setting on 04/25/24, agreeable to CABG and underwent surgery on 05/10/24. Surgery/Procedure: 05/10/24: Dr. Velasco- CABGx3 (PADILLA-LAD, RSVG-OM1, RSVG-PDA with endarterectomy), LEVH, RAYMOND Interval History: 05/12/24, POD# 02. Afebrile, NSR on tele, BP stable, on RA and PAP at night. Weaned off of pressors, Mitchell removed. Pain tolerable, up walking with nursing. No acute issues noted. Objective: CT output cc/24hrs: 320 UO cc/24hrs: 1,505 Last BM Date: 05/09/24 Vitals: BP: 113/51, MAP (mmHg): 71, BP Method: Arterial line Heart Rate: 87 Resp: 15 Temp: 36.9 C (98.5 F), Temp Source: Temporal BMI (Calculated): 31.68 BMP: Recent Labs 05/10/24 1104 05/10/24 1348 05/10/24 1739 05/11/24 0459 05/12/24 0410 NA 139 141 143 140 137 K 3.6 3.1* 4.6 4.4 4.3 CL 111* 112* 115* 113* 107 CO2 22* 21* 19* 21* 22* BUN 17 17 16 14 18 CREATININE 0.84 0.89 0.84 0.80 0.82 CALCIUM 9.8 8.4* 8.2* 8.1* 8.4* MG 3.4* 2.6 -- 2.1 2.0 PHOS 3.4 4.0 -- -- -- CBC: Recent Labs 05/10/24 1348 05/10/24 1740 05/10/24200205/10/24 2210 05/11/24 0103 05/11/24 0730 05/12/24 0410 WBC 15.4* -- 8.8 -- -- -- 9.3 HGB 8.6* < > 7.3* < > 7.7* 7.9 7.5* HCT 26.0* -- 22.2* -- 23.7* -- 22.9* PLT 157 -- 110* -- -- -- 103* MCV 84.1 -- 85.7 -- -- -- 84.8 RDW 14.3 -- 14.3 -- -- -- 14.8 < > = values in this interval not displayed. INR: Recent Labs 05/10/24 1104 05/11/24 0459 05/12/24 0410 INR 1.3* 1.1 1.2* Physical Exam Vitals reviewed. Constitutional: General: He is not in acute distress. Appearance: He is not ill-appearing or diaphoretic. Neck: Comments: Central line. Cardiovascular: Rate and Rhythm: Normal rate and regular rhythm. Pulses: Normal pulses. Heart sounds: No murmur heard. Pulmonary: Effort: Pulmonary effort is normal. Breath sounds: No wheezing, rhonchi or rales. Comments: Diminished. Abdominal: General: There is no distension. Palpations: Abdomen is soft. Tenderness: There is no abdominal tenderness. Comments: Chest tubes. Genitourinary: Comments: Benavidez. Musculoskeletal: General: Swelling present. Skin: General: Skin is warm and dry. Capillary Refill: Capillary refill takes less than 2 seconds. Findings: Bruising present. Comments: Surgical incision without redness, warmth or drainage. Neurological: General: No focal deficit present. Mental Status: He is alert and oriented to person, place, and time. Assessment: CAD s/p CABG T2DM, A1c 7.4% Dyslipidemia Carotid artery disease Parkinsonism Malignant neoplasm of prostate s/p prostatectomy Post operative Pulm Management: Normal Post-operative Course Post-operative Atrial Fibrillation: []Yes [x] No Acute blood loss anemia/consumptive thrombocytopenia Plan: Patient status: ICU Remove arterial line. Remove benavidez. Start low dose BB. -Increase as tolerated. Continue aspirin and statin. -Full dose aspirin d/t endarterectomy, no Plavix. Home dose Sinemet. Advance diet as tolerated, encourage PO intake. Monitor chest tube and urine output. Continue current pain meds. Bowel regimen. Progressive mobility as able. GI prophy: PO protonix DVT prophy:TEDs, SCDs, and Heparin SubQ Pulmonary hygiene: IS and Acapella Consults: Endocrinology. PT/OT: Continue to assess (05/11/24) TCC/Discharge Planning: TBD. Central Line: [x]Yes [] No Arterial Line: [x]Yes [] No Benavidez: [x]Yes [] No Restraints: []Yes [x] No Patient discussed and plan of day developed from multidisciplinary rounds between Cardiothoracic Surgery (Cardiothoracic Surgeon, JULIO CESAR) and Critical Care Attending Critical Care time spent 20 minutes. The time involved in the performance of this care was exclusive of separately billable procedures, teaching time and treating other patients. The time was spent personally by myself for the following activities: examination of the patient, ordering and/or performing treatment, reviewing the laboratory and radiographic studies, and if applicable, ventilator management and blood gas interpretation. Cardiac Core Medications: ASA, Statin, and BB EF: 55% (RAYMOND 05/10/24) Blood Conservation: Transfused Foiling Machine Adjuster: Dr. Elder Cosigned by Luz Hough DO at 05/12/2024 3:54 PM EDT Associated attestation - Luz Hough DO - 05/12/2024 3:54 PM EDT I have personally performed a [id number] diagnostic evaluation on this patient on date of service05/12/24. History, labs, imaging studies, and electronic medical record have been reviewed by me. This note documented by the []greenhouse grower [x]JULIO CESAR reflects my history, exam, and medical decision making. I have reviewed and agree with the care plan. Changes were made in the orders as necessary. ROSdocumentation was reviewed and negative unless otherwise stated in HPI. 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 Start low dose BB -cont home Sinemet -encourage pulm toilet, IS, up to chair. Cont PT/OT -endocrine following, insulin per their recs Total critical care time for this patient with life-threatening unstable organ failure, including direct patient contact, management of life support systems, review of data including imaging and labs, and discussions with other team members and physicians at least 35 minutes so far today, excludingprocedures. * Gianna Moreno, PT - 05/11/2024 3:08 PM EDT Images from the original note were not included. PHYSICAL THERAPY [facility] Initial Evaluation Name/MRN: Marcus Thrasher ([id number]) Evaluation Date: 05/11/2024 Date of : 1940 Admission Date: 05/10/2024 5:34 AM Age: 84 y.o. Room/Bed: T1-116/T1-116 A Discharge Recommendation: Continue to assess pending progress, IP Rehab (may progress to home going.) Other: owns a cane Assessment IMPRESSION: Pt presents with impaired mobility. Noted post op generalized weakness and pain. Impaired balance during standing and gait. Pt currently requires assist with all functional mobility, decreased activity tolerance. Impaired balance during standing and gait. Will continue to assess pending progress, recommend IP Rehab. May progress to home home going. Admitting Diagnosis: CAD, s/p CABG x 3 Prognosis: fair Performance Deficits /Impairments: Increased Pain, Decreased Functional Mobility, Decreased ADL status, Decreased Strength, Decreased Endurance, and Decreased Balance Decision Making: Medium Complexity Subjective Pt in bed, agree with PT treatment. RN cleared for PT. Pain: Montgomery-Anderson Pain Ratin = Hurts little more Pain Location: chest Past Medical History: Past Medical History: Diagnosis Date Carotid arterial disease (HCC) Coronary artery disease Depression Diabetes mellitus (HCC) type 2 Dyslipidemia GERD (gastroesophageal reflux disease) Hypertension Malignant neoplasm of prostate (HCC) Parkinsonism (HCC) Sleep apnea pt states wears a CPAP at bedtime Past Surgical History: Past Surgical History: Procedure Laterality Date CATARACT EXTRACTION Bilateral CHOLECYSTECTOMY PILONIDAL CYST EXCISION PROSTATECTOMY TONSILLECTOMY Admission Diagnosis: Patient Active Problem List Diagnosis Date Noted CAD in [place] artery 05/10/2024 FELICIA (obstructive sleep apnea) 05/04/2024 History of motion sickness 05/04/2024 Medical Precautions: No active isolations Proper PPE donned/doffed in accordance with facility standards. Fall Risk: [place] Fall Risk Score: 50 (High Risk) Precautions/Restrictions: Sternal Precautions: No Pushing, No Pulling, No Lifting Greater Than 10 lbs and No lifting greater than 10 lbs. Ok for modified UE precautions using Keep Your Move in the Tube technique Lines/Drains/Airways: tele, chest tube x 2, left radial art line. Fall Precautions Family/Caregiver Present: spouse Overall Cognitive Status: WFL Overall Orientation Status: Oriented x4 Vision: Not Assessed Hearing: normal Social/Functional History Patient admitted from home. Lives With: Spouse Type of Home: single family home Home Layout: Single Level Home Home Access: Stairs to Enter with Rails (# of stairs: a few) Bathroom Shower/Tub: suction grab bars and built in bench Toilet: Standard Home Equipment: front wheeled walker, rollator, and cane Homemaking Responsibilities: Needs Assist Receives Help From: Spouse Prior Level of Function Prior Level of ADL Function: Required Assist Prior Level of Mobility: Independent; Device: Straight Cane and bilat AFO Prior Level of Transfers: Independent Objective Lower Extremity Assessment AROM: Impaired: DF both 0 PROM: WFL Strength: Lower Extremity Strength Right Left Hip Flexion 4- 4- Hip Abduction Hip Extension Hip External Rotation (ER) Hip Internal Rotation (IR) Knee Extension 4+ 4+ Knee Flexion Ankle Dorsiflexion (DF) 0 0 Ankle Plantarflexion (PF) 3+ 3+ Inversion Eversion Sensation: Impaired: impaired both LE, neuropathy Balance: Balance During Session: Posture: fair Sitting - Static: SBA Sitting - Dynamic: Min Assist Standing - Static: Min Assist Standing - Dynamic: Min Assist Bed Mobility: Supine to sit: Mod Assist Sit to supine: Mod Assist, x2 Person Assist Scooting: Mod Assist Transfers Sit to stand: Mod Assist Stand to sit: Mod Assist Stand pivot: Min Assist Ambulation Ambulation 1 Assistive device(s) used: Boby Assist level: Min Assist, Mod Assist Distance (ft): 30 Quality of gait: uneven step length, slow jose, postural sway, path deviations, instability through all phases Sit to stand from EOB 2x. Sitting at EOB x 5 minutes. Assist with donning AFO and shoes. P&C ex 1-3 x 10 IS Outcome Measures AM-PAC How much HELP from another person do you currently need Turning from your back to your side while in a flat bed without using bedrails?: A Lot Moving from lying on your back to sitting on the side of a flat bed without using bedrails?: A Lot Moving to and from a bed to a chair (including a wheelchair)?: A Little Standing up from a chair using your arms (wheelchair or bedside chair)?: A Lot Walking in a hospital room?: A Lot Stair climbing assessed?: No AM-PAC Inpatient Mobility Raw Score (No Stairs) : 11 JH-HLM -HLM Score: Walked 10 steps or more (i.e. walked to restroom) Plan Pt would benefit from skilled acute PT services to address Strengthening, Gait Training, Balance Training, Functional Mobility Training, and Stair Training. Frequency: 5x/week for 4 weeks Barriers: Pain, Impaired balance, Decreased endurance, and Long standing deficits Safety/Education Safety Safety Devices in place: call light within reach, left in bed, gait belt, nurse notified, no alarmsengaged upon entry, and 4 L/min NC Restraints: No Education Education Given To: patient Education Provided: PT Role, PT Goals, and Plan of Care Education Method: Verbal Barriers to Learning: Education Outcome: Verbalized Understanding and Continued Education Needed Goals Patient Stated Goal: To go home. Encounter Problems Encounter Problems (Active) Cardiac Patient will perform bed mobility with modified independence in order to improve independence and prepare for out of bed mobility. Start: 05/11/24 Expected End: 06/08/24 Patient will complete sit to stand transfer with modified independence to straight cane and rollingwalker in order to improve safety and prepare for out of bed mobility. Start: 05/11/24 Expected End: 06/08/24 Patient will ambulate 250 feet or ambulate 5 minutes with supervision with RPE of 14 or lower. Start: 05/11/24 Expected End: 06/08/24 Patient will ascend and descend 3 # stairs with supervision rail for balance only. Start: 05/11/24 Expected End: 06/08/24 Patient will be independent with P&C exercises. Start: 05/11/24 Expected End: 06/08/24 Patient will be independent with managing secretions and home walking program. Start: 05/11/24 Expected End: 06/08/24 Therapy Time Individual Co-Treatment Co-Evaluation Time In 1340 Time Out 1410 Minutes 30 Timed Code Treatment Minutes: 8 Minutes (FA) Gianna Moreno PT Patient's Physical Therapy Plan of Care supervision is transferred to a [facility] Physical Therapist. Goals and/or treatment plan was established in collaboration with patient/family/other representatives. * Stacey Llanos OT - 05/11/2024 11:13 AM EDT Images from the original note were not included. OCCUPATIONAL THERAPY [facility] Initial Evaluation Name/MRN: Marcus Thrasher ([id number]) Evaluation Date: 05/11/2024 Date of : 1940 Admission Date: 05/10/2024 5:34 AM Age: 84 y.o. Room/Bed: T1-116/T1-116 A Discharge Recommendation: IP Rehab Equipment Needed: (If pt returns home rec raised toilet seat) Assessment IMPRESSION: Function is below baseline and currently not safe for home. OOB ADL activity is requiring 1-2 person assist. UE AROM is WFL but pt has baseline deficits with sensation and FMC. Good tolerance during session. Pt is motivated. Rec IPR at discharge. Admitting Diagnosis: CABG x3 05/10 Performance Deficits /Impairments: Increased Pain, Decreased Functional Mobility, Decreased ADL status, Decreased Strength, Decreased Endurance, Decreased Balance, Decreased ROM, Decreased High LevelIADLs, Decreased Sensation, Decreased Fine Motor Control, and Decreased Posture Prognosis: Good Decision Making: Medium Complexity Subjective Pt is cooperative and agreeable to OT. Yousif present with pt permission. Pain: Montgomery-Anderson Pain Ratin = Hurts even more Pain Location: surgical chest pain Past Medical History: Past Medical History: Diagnosis Date Carotid arterial disease (HCC) Coronary artery disease Depression Diabetes mellitus (HCC) type 2 Dyslipidemia GERD (gastroesophageal reflux disease) Hypertension Malignant neoplasm of prostate (HCC) Parkinsonism (HCC) Sleep apnea pt states wears a CPAP at bedtime Past Surgical History: Past Surgical History: Procedure Laterality Date CATARACT EXTRACTION Bilateral CHOLECYSTECTOMY PILONIDAL CYST EXCISION PROSTATECTOMY TONSILLECTOMY Admission Diagnosis: Patient Active Problem List Diagnosis Date Noted CAD in [place] artery 05/10/2024 FELICIA (obstructive sleep apnea) 05/04/2024 History of motion sickness 05/04/2024 Medical Precautions: No active isolations Proper PPE donned/doffed in accordance with facility standards. Fall Risk: Corrales Fall Risk Score: 50 (High Risk) Precautions/Restrictions: Braces or Orthoses: Has bilateral braces for foot drop Sternal Precautions: No lifting greater than 10 lbs. Ok for modified UE precautions using Keep YourMove in the Tube technique Chest tube x2; benavidez Overall Cognitive Status: Grossly WFL but required extra time/education on precautions to meet learning needs. Overall Orientation Status: WFL Social/Functional History Patient admitted from home. Lives With: Spouse Type of Home: single family home Home Layout: Single Level Home Home Access: Stairs to Enter with Rails (# of stairs: a few) Bathroom Shower/Tub: suction grab bars and built in bench Toilet: Standard Home Equipment: front wheeled walker, rollator, and cane Homemaking Responsibilities: Needs Assist Receives Help From: Spouse Prior Level of Function Prior Level of ADL Function: (Assist for footwear only) Prior Level of Mobility: Independent; Device: Cane Prior Level of Transfers: Independent Objective ADLs LE Dressing: Dependent, socks- unable to reach distally due to pain. Declined to don footwear/braces for session. Feeding: Supervision, after setup Upper Extremity Assessment AROM: Exceptions: UEs are grossly WFL despite reports of bilateral rotator cuff injuries Strength: Exceptions: NT formally due to precautions but at least 3+/5 throughout by functional observation. Grasp is strong. Sensation: C/o I have no feeling in my hands. It doesn't hurt but I just can't feel them. Reportsthis is baseline due to neuropathy. FMC: Opposition fair-poor bilaterally Coordination: WFL Tone: WFL Bed Mobility Sit to supine: Mod Assist Scooting: Dependent, x2 Person Assist, towards HOB Transfers/Mobility Sit to stand: Mod Assist Stand to sit: Mod Assist Stand step: Mod Assist, x2 Person Assist, Pt declined to wear shoes/braces Device(s) used: None AM-PAC AM-PAC Inpatient Daily Activity Raw Score: 14 ADL Inpatient CMS G-Code Modifier: CK Plan Pt would benefit from skilled acute OT services to address Strengthening, ROM, Gait Training, Balance Training, Self-Care/ADL Training, Functional Mobility Training, Endurance Training, Safety Education and Training, Pain Management, Equipment Evaluation/Education, Neuromuscular Re-Education Training, Patient/Caregiver Training, Cognitive/Perceptual Training, and Positioning. Frequency: 5x/week for 4 weeks Barriers: Pain, Impaired balance, Lower extremity weakness, Upper extremity weakness, and Decreasedendurance Safety/Education Safety Safety Devices in place: call light within reach, left in bed, gait belt, patient at risk for falls, and nurse notified Restraints: N/A Education Education Given To: patient Education Provided: OT Role, Plan of Care, Precautions, ADL Adaptive Strategies, and Transfer Training Education Method: Verbal Barriers to Learning: None Education Outcome: Verbalized Understanding Goals Patient Stated Goal: Improve function Encounter Problems Encounter Problems (Active) Dressings Lower Extremities Patient will dress lower body supervision. Start: 05/11/24 Expected End: 06/08/24 Grooming Patient will complete daily grooming tasks standing at sink supervision. Start: 05/11/24 Expected End: 06/08/24 Mobility Patient will demonstrate functional ambulation to/from bathroom supervision. Start: 05/11/24 Expected End: 06/08/24 Safety Maintain modified sternal precautions no cues. Start: 05/11/24 Expected End: 06/08/24 Toileting Patient will complete toileting tasks with supervision. Start: 05/11/24 Expected End: 06/08/24 Toilet transfer supervision. Start: 05/11/24 Expected End: 06/08/24 Therapy Time Individual Co-Treatment Co-Evaluation Time 8199-0996 AND 9077-0599 Minutes 42 (Timed treatment minutes: 25 (2-FA)) Patient's Occupational Therapy Plan of Care supervision is transferred to a [facility] Occupational Therapist. Goals and/or treatment plan was established in collaboration with patient/family/other representatives. Stacey Llanos OTR/L * Jasmyn Mcnally, FURNACE CHARGER - ROCK WORKER - 05/11/2024 9:01 AM EDT Department of Internal Medicine Division of Endocrinology, Diabetes, & Metabolism Endocrinology Note Patient Name: Farhana Thrasher : 1940 AGE: 84 y.o. Room/Bed: T1-116/T1-116 A Admission Date: 05/10/2024 Visit Date: 05/11/2024 Reason for Endocrine Consult: post op heart Provider/Team Requesting Consult: CTS PCP: KELSEY MOON MD Outpt Flow Match Sofa Cutter: No ASSESSMENT: DM2 with hyperglycemia and fci insulin Stress hyperglycemia CABGX3 HLD/CAD Obesity Body mass index is 33.56 kg/m . PLAN: Give Lantus 24 units x 1 now, stop insulin drip 1 hour Start Lantus 18 units daily AM starting tomorrow Start Humalog 6 Start Humalog medium scale ICU goal <180 GMF goal <150 POCT BG ACHS Hypoglycemia management per protocol Carb controlled diet ANTICIPATED ENDOCRINE HOME GOING RECOMMENDATIONS: Optimized for Discharge from Endocrine standpoint: No Home Going Endocrine Rx Recommendations-- Tbd- if no CI resume home regimen Soliqua pen Jardiance home dose Metformin home dose Outpt Follow Up-- Can offer SUBJECTIVE/HPI: CHIEF COMPLAINT: No chief complaint on file. S/p CABGx3 Noted hx of DM2 in chart review BGL below-stable In bed Insulin drip 1.5/h Extubated 02 nc VSS Up in chair, awake alert Confirmed home diabetes regimen and history Sees PCP for diabetes uses a glucometer usually blood sugars are 170s at home Has all home supplies No nausea or vomiting Levo still on Has not yet eaten only water Spoke with nursing Type of DM: 2 Onset of DM: Over 40 years Home DM Medication Regimen: per chart-Soliqua pen 100/33 at 45 units daily am, jardiance 25 mg po daily, metformin 1 g po bid DM control (last A1c/glucose data): Lab Results Component Value Date HGBA1C 7.4 (H) 05/04/2024 Glucose Date/Time Value Ref Range Status 05/11/2024 07:05 AM 137 (H) 70 - 100 mg/dL Final 05/11/2024 06:15 AM 96 70 - 100 mg/dL Final 05/11/2024 05:04 AM 122 (H) 70 - 100 mg/dL Final 05/11/2024 04:14 AM 132 (H) 70 - 100 mg/dL Final 05/11/2024 03:28 AM 149 (H) 70 - 100 mg/dL Final 05/11/2024 02:18 AM 151 (H) 70 - 100 mg/dL Final Review of Systems Unable to perform ROS: Intubated ROS negative except for those mentioned in HPI. OBJECTIVE: Vitals: 05/11/24 0745 05/11/24 0800 05/11/24 0815 05/11/24 0832 BP: Pulse: 70 66 69 Resp: 16 13 17 Temp: TempSrc: SpO2: Weight: Height: 5' 7 (1.702 m) Physical Exam Vitals and nursing note reviewed. Constitutional: General: He is awake. He is not in acute distress. Appearance: He is obese. He is ill-appearing. He is not toxic-appearing. Interventions: Nasal cannula in place. HENT: Head: Normocephalic. Mouth/Throat: Mouth: Mucous membranes are moist. Cardiovascular: Rate and Rhythm: Normal rate. Pulmonary: Effort: Pulmonary effort is normal. No respiratory distress. Abdominal: Tenderness: There is no guarding. Skin: General: Skin is warm and dry. Coloration: Skin is pale. Comments: Intact incision Neurological: Mental Status: He is alert and oriented to person, place, and time. Psychiatric: Mood and Affect: Mood normal. Behavior: Behavior normal. Behavior is cooperative. 24 hour intake/output: Intake/Output Summary (Last 24 hours) at 05/11/2024 09 Last data filed at 05/11/2024 0730 Gross per 24 hour Intake 8567.2 ml Output 3272 ml Net 5295.2 ml Diet: Adult diet Regular; 5 carb choices (75 gm/meal) Medications (as per EMR): HomeMeds: Current Outpatient Medications Medication Instructions amLODIPine (Norvasc) 5 MG tablet Every evening aspirin 81 mg, Every evening atorvastatin (LIPITOR) 10 mg, Nightly Calcium Carb-Cholecalciferol (CALCIUM 500 + D3 PO) 1 tablet, Daily carbidopa-levodopa (Sinemet) 25-100 MG tablet 1 tablet, 3 times daily empagliflozin (JARDIANCE) 25 mg, Daily insulin glargine-lixisenatide (Soliqua) 100-33 UNT-MCG/ML pen 45 Units, Daily before breakfast metFORMIN (GLUCOPHAGE) 1,000 mg, 2 times daily with meals metoprolol succinate XL (TOPROL-XL) 12.5 mg, Daily Miconazole Nitrate 2 % ointment PRN mupirocin (Bactroban) 2 % ointment Apply liberal amount per nostril the night before surgery and then again the morning of surgery Propylene Glycol (LUBRICANT EYE DROP OP) PRN triamcinolone (Kenalog) 0.1 % ointment 1 Application, Daily PRN Vibegron 75 MG tablet 1 tablet, Daily Scheduled Meds:acetaminophen, 1,000 mg, Oral, q8h aspirin, 81 mg, Oral, Daily atorvastatin, 40 mg, Oral, Nightly carbidopa-levodopa, 1 tablet, Oral, TID ceFAZolin, 2,000 mg, IntraVENous, q8h chlorhexidine, , Topical, Daily chlorhexidine, 15 mL, Mouth/Throat, BID Lidocaine, 1 patch, Topical, Daily mupirocin, , Nasal, BID pantoprazole, 40 mg, IntraVENous, Daily polyethylene glycol (PEG) 3350, 17 g, Oral, Daily senna-docusate sodium, 2 tablet, Oral, Nightly sodium chloride 0.9%, 10 mL, IntraVENous, 2 times per day sodium chloride 0.9%, 5-40 mL, IntraCATHeter, q8h Continuous Infusions:insulin regular, 1-50 Units/hr, Last Rate: 1.5 Units/hr (05/11/24 0758) lactated ringers, 250 mL, Last Rate: Stopped (05/11/24 0658) norepinephrine, 0.01-0.2 mcg/kg/min, Last Rate: 0.02 mcg/kg/min (05/11/24 0730) sodium chloride, 20 mL/hr, Last Rate: 20 mL/hr (05/10/24 1230) PRN Meds:PRN medications: calcium gluconate, dextrose, dextrose, glucagon (rDNA), glucose, ipratropium-albuterol, lactated ringers, magnesium hydroxide, magnesium sulfate OR magnesium sulfate, morphine sulfate OR morphine sulfate, naloxone, norepinephrine, ondansetron ODT OR ondansetron, oxyCODONE OR oxyCODONE, potassium chloride OR potassium chloride OR potassium chloride, potassium chloride CR, sodium chloride, sodium chloride, sodium chloride 0.9%, sodium chloride 0.9% Diagnostic Workup: I reviewed pertinent Laboratory results, Radiographic results, and Other Clinical Notes at the timeof today's encounter. Labs: No components found for: LABA1C No components found for: EAG Lab Results Component Value Date NA 140 05/11/2024 K 4.4 05/11/2024 CL 113 (H) 05/11/2024 CO2 21 (L) 05/11/2024 BUN 14 05/11/2024 CREATININE 0.80 05/11/2024 GLUCOSE 122 (H) 05/11/2024 CALCIUM 8.1 (L) 05/11/2024 No results found for: CHLPL, CHOL No results found for: TRIG No results found for: HDL No results found for: LDLCALC No results found for: VLDL No results found for: CHOLHDLRATIO No results found for: [id number] No results found for: TSH, L8SXGBC, B2ZAZKT, THYROIDAB Radiology reportsas per the Radiologist Radiology: POCT glucose meter Result Date: 05/10/2024 Performed by: [facility], [address] [place] [id number] CLIA ID: [id number] POCT glucose meter Result Date: 05/10/2024 Performed by: [facility], [address] [place] [id number] CLIA ID: [id number] History/Other: Past Medical History: Past Medical History: Diagnosis Date Carotid arterial disease (HCC) Coronary artery disease Depression Diabetes mellitus (HCC) type 2 Dyslipidemia GERD (gastroesophageal reflux disease) Hypertension Malignant neoplasm of prostate (HCC) Parkinsonism (HCC) Sleep apnea pt states wears a CPAP at bedtime Past Surgical History: Past Surgical History: Procedure Laterality Date CATARACT EXTRACTION Bilateral CHOLECYSTECTOMY PILONIDAL CYST EXCISION PROSTATECTOMY TONSILLECTOMY Allergy(ies): Allergies Allergen Reactions Rosuvastatin Other Reaction(s): Flu like symptoms Tape Other Reaction(s): skin tears Family History: Family History Problem Relation Name Age of Onset Stroke Mother COPD Father Coronary artery disease Father Coronary artery disease Brother Heart attack Brother Social History: Social History Tobacco Use Smoking status: Former Average packs/day: 1 pack/day for 11.0 years (11.0 ttl pk-yrs) Types: Cigarettes Start date: 1960 Smokeless tobacco: Never Vaping Use Vaping status: Never Used Substance Use Topics Alcohol use: Never Drug use: Never Portions of the information within this encounter were entered using an electronic dictation system. Best attempts were made to edit/proofread the information prior to note completion. Despite the review of information, some errors may remain. If there are questions related to the information contained within the note please contact the signing physician directly. I spent 15 minutes with the pt which involved coordination of care, medical evaluation, review of records, and/or counseling of the pt regarding his/her condition/disease state/prognosis on the date of this note. Cosigned by Lilian Cisse MD at 05/11/2024 12:36 PM EDT Associated attestation - Lilian Cisse MD - 05/11/2024 12:36 PM EDT I have personally performed a face to face diagnostic evaluation on this patient. In addition, I have reviewed the resident's/AUTOMOTIVE SERVICE WRITER/FOOTBALL PAD REPAIRER's care plan and agree with those findings I have performed a substantive portion of the the medical decision making. My findings are as follows: Extubated Being weaned off pressors Insulin drip rate 1.5 units/h Patient reported diagnosis of diabetes more than 20 years ago on Soliqua, metformin, Jardiance Has a glucometer that he checks his blood sugar readings and ranges 120s to 170s No frequent hypoglycemia Vitals: BP (!) 144/66 Pulse 70 Temp 36.7 C (98 F) (Temporal) Resp 16 Ht 5' 7 (1.702 m) Wt 214 lb 4.6 oz (97.2 kg) SpO2 100% BMI 33.56 kg/m Respiratory: No respiratory distress Cardiovascular System:o lower extremity edema Abdomen: obese A/P Type 2 diabetes with hyperglycemia with long-term insulin use Type 2 diabetes with cardiac complication Body mass index is 33.05 kg/m . Recommend Lantus 24 units once then discontinue insulin drip after 1 hour Lantus 18 units every morning starting tomorrow Humalog 6 units before meals with medium dose correction Discussed the case with his nurse Most likely patient will be discharged on his home regimen for diabetes as long as there is no contraindication I spent 35 minutes with the pt which involved in coordination of care, medical evaluation, review of records, and/or counseling of the pt regarding the condition/disease state/prognosis on the date of this note. Old records including available PCP, ED notes and or other specialists notes are reviewed. LABs and/or imaging are reviewed as detailed in the resident's/AUTOMOTIVE SERVICE WRITER/FOOTBALL PAD REPAIRER's note * Miguel Angel Handy, TARYN - ROCK WORKER - 05/11/2024 6:55 AM EDT Images from the original note were not included. Cardiothoracic Surgery/[facility] Progress Note PATIENT NAME: Farhana Thrasher DATE: 05/11/24 HPI: Marcus Thrasher is a 84 y.o. male referred by Dr. Elder for CABG. Patient has history of CAD, carotid artery disease, dyslipidemia, DM, and Parkinsonism. Pt saw Cardiology on 03/23/24 and reported SOBand chest burning with exertion a month prior. Stress test was ordered which showed moderate size reversible perfusion defect of the lateral wall suggestive of ischemia. Echocardiogram was also completed which demonstrated mild to moderate mitral valve insufficiency. Pt then underwent a heart catheterization on 04/24/24 which demonstrated severe multivessel CAD. Seen Dr. Velasco in OP setting on 04/25/24, agreeable to CABG and underwent surgery on 05/10/24. Surgery/Procedure: 05/10/24: Dr. Velasco- CABGx3 (PADILLA-LAD, RSVG-OM1, RSVG-PDA with endarterectomy), LEVH, RAYMOND Interval History: 05/11/24, POD# 01: Afebrile, NSR on tele, BP requiring low dose pressor support, extubated post-op and now on 2L NC. Received >2L fluids since OR. Pain tolerable. Current IV Drips: Insulin-1.5units/hr Norepinephrine- 0.02mcg/kg/min A-line: Arterial Line BP 1: 138/39 Invasive Hemodynamic Monitoring Blood Temperature: 37.3 C (99.1 F) PAP: 17/1 PAP (Mean): 11 mmHg CVP (mmHg): 3 mmHg CO (L/min): 7.73 L/min CI (L/min/m2): 3.73 L/min/m2 Objective: CT output cc/24hrs: 780 UO cc/24hrs: 2,397 Last BM Date: 05/09/24 Vitals: BP: (!) 144/66, MAP (mmHg): 92, BP Method: Arterial line Heart Rate: 71 Resp: 15 Temp: 37.2 C (99 F), Temp Source: Core BMI (Calculated): 33.04 BMP: Recent Labs 05/10/24 1104 05/10/24 1348 05/10/24 1739 05/11/24 0459 NA 139 141 143 140 K 3.6 3.1* 4.6 4.4 CL 111* 112* 115* 113* CO2 22* 21* 19* 21* BUN 17 17 16 14 CREATININE 0.84 0.89 0.84 0.80 CALCIUM 9.8 8.4* 8.2* 8.1* MG 3.4* 2.6 -- 2.1 PHOS 3.4 4.0 -- -- CBC: Recent Labs 05/10/24 1104 05/10/24 1105 05/10/24 1348 05/10/24 1740 05/10/24200205/10/24 2210 05/11/24 0103 WBC 11.3* -- 15.4* -- 8.8 -- -- HGB 7.9* < > 8.6* < > 7.3* 8.9 7.7* HCT 24.9* -- 26.0* -- 22.2* -- 23.7* PLT 124* -- 157 -- 110* -- -- MCV 86.5 -- 84.1 -- 85.7 -- -- RDW 14.0 -- 14.3 -- 14.3 -- -- < > = values in this interval not displayed. INR: Recent Labs 05/10/24 1104 05/11/24 0459 INR 1.3* 1.1 Physical Exam Vitals reviewed. Constitutional: General: He is not in acute distress. Appearance: He is not ill-appearing or diaphoretic. Neck: Comments: Central line and Mitchell. Cardiovascular: Rate and Rhythm: Normal rate and regular rhythm. Pulses: Normal pulses. Heart sounds: No murmur heard. Pulmonary: Effort: Pulmonary effort is normal. Breath sounds: No wheezing, rhonchi or rales. Comments: Diminished d/t shallow breaths, on NC. Abdominal: General: There is no distension. Palpations: Abdomen is soft. Tenderness: There is no abdominal tenderness. Comments: Chest tubes. Genitourinary: Comments: Benavidez. Musculoskeletal: General: Swelling present. Skin: General: Skin is warm and dry. Capillary Refill: Capillary refill takes less than 2 seconds. Findings: Bruising present. Comments: Surgical incision covered by dressing. No drainage noted. Neurological: General: No focal deficit present. Mental Status: He is alert and oriented to person, place, and time. Assessment: CAD s/p CABG T2DM, A1c 7.4% Dyslipidemia Carotid artery disease Parkinsonism Malignant neoplasm of prostate s/p prostatectomy Post operative Pulm Management: Normal Post-operative Course Post-operative Atrial Fibrillation: []Yes [x] No Acute blood loss anemia/consumptive thrombocytopenia Plan: Patient status: ICU Remove Mitchell. Wean levophed as able, goal MAP>65. -Remove arterial line when off of levo. Okay to get to chair on low dose levo. Start aspirin and statin. -Full dose aspirin d/t endarterectomy, no Plavix. -No BB until off of pressors. Home dose Sinemet. Advance diet as tolerated, encourage PO intake. Monitor chest tube and urine output. Continue current pain meds. Bowel regimen. Wean O2 as able, goal SpO2>92%. Progressive mobility as able. GI prophy: PO protonix DVT prophy:TEDs, SCDs, and Heparin SubQ Pulmonary hygiene: IS and Acapella Consults: Endocrinology. PT/OT: Will need assessed. TCC/Discharge Planning: TBD. Central Line: [x]Yes [] No Arterial Line: [x]Yes [] No Benavidez: [x]Yes [] No Restraints: []Yes [x] No Patient discussed and plan of day developed from multidisciplinary rounds between Cardiothoracic Surgery (Cardiothoracic Surgeon, JULIO CESAR) and Critical Care Attending Critical Care time spent 25 minutes. The time involved in the performance of this care was exclusive of separately billable procedures, teaching time and treating other patients. The time was spent personally by myself for the following activities: examination of the patient, ordering and/or performing treatment, reviewing the laboratory and radiographic studies, and if applicable, ventilator management and blood gas interpretation. Cardiac Core Medications: ASA, Statin, and No BB due to hypotension EF: 55% (RAYMOND 05/10/24) Blood Conservation: Transfused Foiling Machine Adjuster: Dr. Elder Cosigned by Luz Hough DO at 05/11/2024 5:59 PM EDT Associated attestation - Luz Hough DO - 05/11/2024 5:59 PM EDT I have personally performed a trho-py-gspb diagnostic evaluation on this patient on date of service05/11/24. History, labs, imaging studies, and electronic medical record have been reviewed by me. This note documented by the []greenhouse grower [x]JULIO CESAR reflects my history, exam, and medical decision making. I have reviewed and agree with the care plan. Changes were made in the orders as necessary. ROSdocumentation was reviewed and negative unless otherwise stated in HPI. Assessment: -mvCAD s/p CABGx3 POD 1 -acute post op pulmonary management: expected course -acute post op blood loss anemia, consumptive thrombocytopenia -mild carotid artery disease -DM2 with hyperglycemia (A1c 7.4) -Parkinson's disease -hypocalcemia -hx Prostate CA s/p prostatectomy Plan: -cont supplemental 02, wean as able -wean levophed as able to maintain MAP>65 -start ASA and statin -cont home Sinemet -encourage pulm toilet, IS, up to chair -endocrine following, insulin per their recs Total critical care time for this patient with life-threatening unstable organ failure, including direct patient contact, management of life support systems, review of data including imaging and labs, and discussions with other team members and physicians at least 33 minutes so far today, excludingprocedures. * Ariella Corado MD - 05/10/2024 9:19 PM EDT Transfusion Medicine Resident Review Note Product type: 1 unit pRBC, O+ Reason for Review: Hemoglobin >7.0 g/dL Indications for Transfusion: 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 Please contact the blood bank if there are any issues receiving the product for transfusion at *[phone] ([facility]) or *[phone] ([facility]) Comment: Close clinical monitoring is indicated to avoid transfusion associated circulatory overload (TACO) during transfusion of patients with impaired cardiac function. Strategies such as slower infusion rates (1 ml/kg body weight/hour), decreasing transfusion volume, and prophylactic use of diuretics for volume reduction may reduce the risk in clinically appropriate patients. Cosigned by Rogerio Spence MD at 05/10/2024 9:28 PM EDT * Lina Calle RCP - 05/10/2024 3:52 PM EDT Extubated to 5 L NC * Lina Calle RCP - 05/10/2024 3:19 PM EDT [facility] Respiratory Care Department Progress Note Spontaneous Awakening Trial Wean Screen SpO2>/=88%: Yes (05/10/241512) FiO2</=50%: Yes (05/10/241512) PEEP </=8cmH2O: Yes (05/10/241512) HR <140 BPM: Yes (05/10/241512) RR </= 35 breaths/min: Yes (05/10/241512) MAP >/= 65mmHg: Yes (05/10/241512) Arterial pH >7.30: Yes (05/10/241512) Safety Screen Spontaneous Breathing Trial (SBT - RT) : Proceed with SBT - No exclusion criteria met(05/10/241512) Spontaneous Breathing Trial Weaning Start Time: 1451 (05/10/241512) Weaning Tidal Volume: 702 mL (05/10/241512) Weaning Respiratory Rate: 17 (05/10/241512) Spontaneous Minute Volume (MV): 9.83 (05/10/241512) Total RSBI: 24 (05/10/241512) Weaning Tolerance: Excellent (05/10/241512) Weaning Stop Time: 1513 (05/10/241512) Weaning Duration (min): 30 (05/10/241512) Spontaneous Breathing Trial (SBT - RT) Outcome: SBT Passed (05/10/241512) Vent Settings Vent Mode: Spontaneous (05/10/241512) Mandatory Type: Pressure Control (05/10/241512) Resp Rate (Set): 12 (05/10/241450) Vt (Set, mL): 400 mL (05/10/241450) FiO2 (%): 40 % (05/10/241512) PEEP/CPAP (cm H2O): 8 cm H20 (05/10/241512) Inspiratory Time (sec): 0.9 sec (05/10/241450) Vitals Heart Rate: 75 (05/10/241512) Resp: 18 (05/10/241512) SpO2: 100 % (05/10/241512) Suctioning/Secretions Secretion Amount: Unable to assess (05/10/24 1217) ABG results Recent Labs 05/10/24 1105 05/10/24 1347 PHART 7.352 7.313* [id number] 43.0 39.5 PO2ART 387.1* 177.8* DZG3LKG 23.3 19.6* [id number] Ventilator Ventilator Does this patient meet criteria for termination of mechanical ventilation Yes- Notified physician below Name of physician notified via secure chat or in person : nurse (NA if patient did not meet criteria) Comments: Thank you for involving Respiratory in the care of this patient, documented in this [facility]03-25-2025 Nurse Note* Clara Romero RN - 05/16/2024 10:24 AM EDT Report called to Danny Dailey. documented in this [facility]03-25-2025 NoteDischarge Summary: Cardiothoracic Surgery Farhana Thrasher, 84 y.o., 1940 ADMIT DATE: 05/10/2024 DISCHARGE DATE: 05/16/2024 VISIT STATUS: Admission CODE STATUS: Full Code DISCHARGING SURGEON: Daysi Velasco MD, Office Number: [phone] DISCHARGE DIAGNOSES: CAD s/p CABG T2DM, A1c 7.4% Dyslipidemia Carotid artery disease Parkinsonism Malignant neoplasm of prostate s/p prostatectomy Post operative Pulm Management: Normal Post-operative Course Post-operative Atrial Fibrillation: []Yes [x] No Acute blood loss anemia/consumptive thrombocytopenia -Lasix and K supplement. -GIANNA wraps or SUE to BLE. -Full dose aspirin for endarterectomy. -Statin and BB. -Iron supplement d/t low hgb. BMI CLASSIFICATION:Obese (BMI 30.0-39.9) TREATMENT TEAM: Primary Care Physician: KELSEY MOON MD Foiling Machine Adjuster: Dr. Elder SURGERY: 05/10/24: s/p CABGx3 (PADILLA-LAD, RSVG-OM1, RSVG-PDA with endarterectomy), LEVH, RAYMOND with Dr. Velasco HOSPITAL COURSE: 84 y.o. male referred by Dr. Elder for CABG. Patient has history of CAD, carotid artery disease, dyslipidemia, DM, and Parkinsonism. Pt saw Cardiology on 03/23/24 and reported SOB and chest burning with exertion a month prior. Stress test was ordered which showed moderate size reversible perfusion defect of the lateral wall suggestive of ischemia. Echocardiogram was also completed which demonstrated mild to moderate mitral valve insufficiency. Pt then underwent a heart catheterization on 04/24/24 which demonstrated severe multivessel CAD. Seen Dr. Velasco in OP setting on 04/25/24, agreeable to CABG and underwent surgery on 05/10/24. Extubated post-op as expected. Requiring low dose pressor support briefly, resuscitated with fluids, given 1uPRBC. Chest tubes removed. Patient progressing with PT/OT but still requiring assistance. Diuresis started for increased weight and fluid overload. Tolerating well. Started on GDMT for CABG. Able to discharge to [facility] on POD#06. DIAGNOSTICS: BP (!) 130/49 (BP Location: Left arm, Patient Position: Lying) Pulse 66 Temp 36.1 ?C (97 ?F) (Temporal) Resp 17 Ht 5' 7 (1.702 m) Wt 208 lb 3.2 oz (94.4 kg) SpO2 100% BMI 32.61 kg/m? Recent Labs 05/14/24 0010 05/15/24 0330 05/16/24 0611 CREATININE 1.10 0.97 1.04 HGB 7.6* 7.3* 7.4* PLT 179 218 274 WBC 8.5 7.5 8.7 NA 138 140 138 K 3.8 3.8 3.9 DISCHARGE MEDICATIONS: Medication List START taking these medications acetaminophen 500 MG tablet Commonly known as: Tylenol Take 2 tablets (1,000 mg) by mouth every 8 hours. aspirin 81 MG chewable tablet Chew 4 tablets (325 mg) daily. Start taking on: May 17, 2024 Replaces: aspirin 81 MG EC tablet ferrous sulfate 325 (65 Fe) MG tablet Take 1 tablet (325 mg) by mouth every 48 hours. Do not start before May 17, 2024. Start taking on: May 17, 2024 furosemide 40 MG tablet Commonly known as: Lasix Take 1 tablet (40 mg) by mouth daily for 7 days. insulin glargine 100 UNIT/ML injection Commonly known as: Lantus Inject 32 Units under the skin every morning. Start taking on: May 17, 2024 * Insulin Lispro 100 UNIT/ML solution injection Commonly known as: Humalog Inject 0-12 Units under the skin 3 times daily (with meals). * Insulin Lispro 100 UNIT/ML solution injection Commonly known as: Humalog Inject 14 Units under the skin 3 times daily (with meals). metoprolol tartrate 25 MG tablet Commonly known as: Lopressor Take 1 tablet (25 mg) by mouth 2 times daily. oxyCODONE 5 MG immediate release tablet Commonly known as: Roxicodone Take 1 tablet (5 mg) by mouth every 6 hours as needed for severe pain (7-10). potassium chloride CR 20 MEQ ER tablet Commonly known as: Klor-Con M20 Take 2 tablets (40 mEq) by mouth daily. Do not crush or chew. While taking lasix. * This list has 2 medication(s) that are the same as other medications prescribed for you. Read the directions carefully, and ask your doctor or other care provider to review them with you. CHANGE how you take these medications atorvastatin 40 MG tablet Commonly known as: Lipitor Take 1 tablet (40 mg) by mouth Nightly. What changed: medication strength how much to take CONTINUE taking these medications CALCIUM 500 + D3 PO carbidopa-levodopa 25-100 MG tablet Commonly known as: Sinemet LUBRICANT EYE DROP OP Miconazole Nitrate 2 % ointment Vibegron 75 MG tablet STOP taking these medications amLODIPine 5 MG tablet Commonly known as: Norvasc aspirin 81 MG EC tablet Replaced by: aspirin 81 MG chewable tablet empagliflozin 25 MG Commonly known as: Jardiance insulin glargine-lixisenatide 100-33 UNT-MCG/ML pen Commonly known as: Soliqua metFORMIN 1000 MG tablet Commonly known as: Glucophage metoprolol succinate XL 25 MG 24 hr tablet Commonly known as: Toprol-XL mupirocin 2 % ointment Commonly known as: Bactroban triamcinolone 0.1 % ointment Commonly known (more content not included)...[facility] [id number] Hospital course Narrative* Miguel Angel Handy, FURNACE CHARGER - ROCK WORKER - 05/16/2024 10:11 AM EDT Images from the original note were not included. Discharge Summary: Cardiothoracic Surgery Farhana Thrasher, 84 y.o., 1940 ADMIT DATE: 05/10/2024 DISCHARGE DATE: 05/16/2024 VISIT STATUS: Admission CODE STATUS: Full Code DISCHARGING SURGEON: Daysi Velasco MD, Office Number: [phone] DISCHARGE DIAGNOSES: CAD s/p CABG T2DM, A1c 7.4% Dyslipidemia Carotid artery disease Parkinsonism Malignant neoplasm of prostate s/p prostatectomy Post operative Pulm Management: Normal Post-operative Course Post-operative Atrial Fibrillation: []Yes [x] No Acute blood loss anemia/consumptive thrombocytopenia -Lasix and K supplement. -GIANNA wraps or SUE to BLE. -Full dose aspirin for endarterectomy. -Statin and BB. -Iron supplement d/t low hgb. BMI CLASSIFICATION:Obese (BMI 30.0-39.9) TREATMENT TEAM: Primary Care Physician: KELSEY MOON MD Foiling Machine Adjuster: Dr. Elder SURGERY: 05/10/24: s/p CABGx3 (PADILLA-LAD, RSVG-OM1, RSVG-PDA with endarterectomy), LEVH, RAYMOND with Dr. Velasco [facility] COURSE: 84 y.o. male referred by Dr. Elder for CABG. Patient has history of CAD, carotid artery disease, dyslipidemia, DM, and Parkinsonism. Pt saw Cardiology on 03/23/24 and reported SOB and chest burning with exertion a month prior. Stress test was ordered which showed moderate size reversible perfusion defect of the lateral wall suggestive of ischemia. Echocardiogram was also completed which demonstrated mild to moderate mitral valve insufficiency. Pt then underwent a heart catheterization on 04/24/24 which demonstrated severe multivessel CAD. Seen Dr. Velasco in OP setting on 04/25/24, agreeable to CABG and underwent surgery on 05/10/24. Extubated post-op as expected. Requiring low dose pressor support briefly, resuscitated with fluids, given 1uPRBC. Chest tubes removed. Patient progressing withPT/OT but still requiring assistance. Diuresis started for increased weight and fluid overload. Tolerating well. Started on GDMT for CABG. Able to discharge to [facility] on POD#06. DIAGNOSTICS: BP (!) 130/49 (BP Location: Left arm, Patient Position: Lying) Pulse 66 Temp 36.1 C (97 F) (Temporal) Resp 17 Ht 5' 7 (1.702 m) Wt 208 lb 3.2 oz (94.4 kg) SpO2 100% BMI 32.61 kg/m Recent Labs 05/14/24 0010 05/15/24 0330 05/16/24 0611 CREATININE 1.10 0.97 1.04 HGB 7.6* 7.3* 7.4* PLT 179 218 274 WBC 8.5 7.5 8.7 NA 138 140 138 K 3.8 3.8 3.9 DISCHARGE MEDICATIONS: Medication List START taking these medications acetaminophen 500 MG tablet Commonly known as: Tylenol Take 2 tablets (1,000 mg) by mouth every 8 hours. aspirin 81 MG chewable tablet Chew 4 tablets (325 mg) daily. Start taking on: May 17, 2024 Replaces: aspirin 81 MG EC tablet ferrous sulfate 325 (65 Fe) MG tablet Take 1 tablet (325 mg) by mouth every 48 hours. Do not start before May 17, 2024. Start taking on: May 17, 2024 furosemide 40 MG tablet Commonly known as: Lasix Take 1 tablet (40 mg) by mouth daily for 7 days. insulin glargine 100 UNIT/ML injection Commonly known as: Lantus Inject 32 Units under the skin every morning. Start taking on: May 17, 2024 * Insulin Lispro 100 UNIT/ML solution injection Commonly known as: Humalog Inject 0-12 Units under the skin 3 times daily (with meals). * Insulin Lispro 100 UNIT/ML solution injection Commonly known as: Humalog Inject 14 Units under the skin 3 times daily (with meals). metoprolol tartrate 25 MG tablet Commonly known as: Lopressor Take 1 tablet (25 mg) by mouth 2 times daily. oxyCODONE 5 MG immediate release tablet Commonly known as: Roxicodone Take 1 tablet (5 mg) by mouth every 6 hours as needed for severe pain (7-10). potassium chloride CR 20 MEQ ER tablet Commonly known as: Klor-Con M20 Take 2 tablets (40 mEq) by mouth daily. Do not crush or chew. While taking lasix. * This list has 2 medication(s) that are the same as other medications prescribed for you. Read thedirections carefully, and ask your doctor or other care provider to review them with you. CHANGE how you take these medications atorvastatin 40 MG tablet Commonly known as: Lipitor Take 1 tablet (40 mg) by mouth Nightly. What changed: medication strength how much to take CONTINUE taking these medications CALCIUM 500 + D3 PO carbidopa-levodopa 25-100 MG tablet Commonly known as: Sinemet LUBRICANT EYE DROP OP Miconazole Nitrate 2 % ointment Vibegron 75 MG tablet STOP taking these medications amLODIPine 5 MG tablet Commonly known as: Norvasc aspirin 81 MG EC tablet Replaced by: aspirin 81 MG chewable tablet empagliflozin 25 MG Commonly known as: Jardiance insulin glargine-lixisenatide 100-33 UNT-MCG/ML pen Commonly known as: Soliqua metFORMIN 1000 MG tablet Commonly known as: Glucophage metoprolol succinate XL 25 MG 24 hr tablet Commonly known as: Toprol-XL mupirocin 2 % ointment Commonly known as: Bactroban triamcinolone 0.1 % ointment Commonly known as: Kenalog Where to Get Your Medications Information about where to get these medications is not yet available Ask your nurse or doctor about these medications acetaminophen 500 MG tablet aspirin 81 MG chewable tablet atorvastatin 40 MG tablet ferrous sulfate 325 (65 Fe) MG tablet furosemide 40 MG tablet insulin glargine 100 UNIT/ML injection Insulin Lispro 100 UNIT/ML solution injection Insulin Lispro 100 UNIT/ML solution injection metoprolol tartrate 25 MG tablet oxyCODONE 5 MG immediate release tablet potassium chloride CR 20 MEQ ER tablet ACTIVITY: activity as tolerated, strict post-sternotomy/post-thoracotomy sternal precautions as outlined in the home going instructions, and no driving or operating heavy machinery until released by provider STRICT POST-STERNOTOMY/POST-THORACOTOMY PRECAUTIONS OUTLINED IN THE HOME GOING INSTRUCTIONS FOLLOW UP: 05/25/24 at 01:00PM, phone call. [address] [id number] Dept: [phone] Dept CORE CARDIAC MEDICATIONS PRESCRIBED AT DISCHARGE: Beta-soni prescribed at discharge: [x] Yes [] No - reason why: ACEi or ARB prescribed at discharge: [] Yes [x] No - reason why: Statin prescribed at discharge: [x] Yes [] No - reason why: Anti-platelet agent prescribed at discharge: [x] Yes [] No - reason why: If yes, type: Aspirin Post-operative Atrial Fibrillation: []Yes [x] No OAC: [] Yes [x] No Initial Post-op RBC transfusion date/reason: transfused postoperatively Chronic Lung Disease: Unknown DISPOSITION: Home with Home Assist A copy of the discharge instructions which included the medications at the time of discharge, follow-up appointments, phone numbers to call with questions, activity, restrictions, and limitations wasprovided to the patient or their family. We greatly appreciate the opportunity to participate in the care of your patient. If you have any additional questions or concerns regarding any aspects of their care or management please do not hesitate to contact us. SIGNED: Miguel Angel CarterTARYN Acevedo CNP 05/16/2024, 10:19 AM Cosigned by Daysi Velasco MD at 05/16/2024 12:26 PM EDT documented in this [facility]03-25-2025 Hospital Discharge instructions* Discharge Instructions* TARYN Clark CNP - 05/16/2024 9:58 AM EDT Images from the original note were not included. [facility]: Cardiothoracic Surgery [address] [place] [address] #[phone] Notify us if the following occur - Increased tenderness, redness, or swelling of your incisions. - Any drainage from the chest incision (clear or pink drainage from the leg incision or chest tube site is common). - Angina symptoms like those you had before surgery - Sharp pain in chest, neck or shoulder that is worse when taking a deep breath - Persistent fever greater than 100 degrees F or 38 degrees C - Flu-like symptoms-chills, aches, fever, increased fatigue - Heart rate faster than 150 beats/minute with shortness of breath or new irregular heart rate. - Any unusual bleeding - Shortness of breath not relieved by rest - Weight gain of three pounds in one day or five pounds over one week Activity Instructions - Sternal Precautions for 6 weeks - Do not lift, push, or pull anything heavier than 10 pounds for 6 weeks (a gallon of milk weighs 8pounds). - Do not drive until you have been given permission by your surgeon/provider and until you are off narcotic/opioid pain medication - It is ok to sleep on your side if you prop pillows to support your back. Do not sleep on your stomach. - Walk at least 4 times a day, start with 5 minute intervals, increase minutes walked each day. Do not walk on a treadmill - Balance rest and activity during your recovery - Use the stairs, but go slowly, Use the handrail for balance but do not pull yourself up with yourarms. - Shower daily. Do not take your heart medication right before you shower. You could become lightheaded from your blood pressure and heart medication. Always have someone nearby to assist you. - Do not take a tub bath or use a hot tub until all incision are completely healed (no scab). - Put sue hose on in AM and remove at bedtime. Elevate your feet above level of heart when you are sitting. - Cough and deep breathe and use incentive spirometer every hour (10x/hour while awake for two weeks). Other Instructions - Weigh yourself daily at the same time (after you urinate but before breakfast) - Keep a record of your daily weight, and bring to your first post op office visit - Take all medications as prescribed. Bring all your medication bottles to any follow up office visit Incision Care - Wash your sternal incision with anti-bacterial soap and warm water. Pat dry, and leave open to air. Do not use any lotions, or powders, or ointments. * Discharge Instr - LAURA* TARYN Clark CNP - 05/16/2024 9:33 AM EDT Images from the original note were not included. Continuity of Care Form Patient Name: Farhana Thrasher : 1940 Admit date: 05/10/2024 Discharge date: 05/16/24 Code Status Order: Full Code Advance Directives: Y Admitting Physician: Daysi Velasco MD PCP: KELSEY MOON MD Discharging Nurse: Jacqueline Discharging Hospital Unit/Room#: T1-116/T1-116 A Discharging Unit Emergency Contact: Extended Emergency Contact Information Primary Emergency Contact: Yousif Thrasher Mobile Relation: Spouse Assessment Consultant needed? No Past Surgical History: Past Surgical History: Procedure Laterality Date CATARACT EXTRACTION Bilateral CHOLECYSTECTOMY PILONIDAL CYST EXCISION PROSTATECTOMY TONSILLECTOMY Immunization History: Immunization History Administered Date(s) Administered COVID-19, mRNA, LNP-S, PF, 50 mcg/0.5 mL 12/29/2022 Covid-19, Moderna Bivalent Booster, (Age 6y-11y) 09/01/2022 Moderna SARS-CoV-2 Vaccination 04/04/2020, 05/01/2020 Active Problems: Medical Problems Problem List * (Principal) CAD in [place] artery FELICIA (obstructive sleep apnea) History of motion sickness Isolation/Infection: No active isolations No active infections Nurse Assessment: Last Vital Signs: BP (!) 130/49 (BP Location: Left arm, Patient Position: Lying) Pulse 66 Temp 36.1 C (97 F) (Temporal) Resp 17 Ht 1.702 m (5' 7) Wt 94.4 kg (208 lb 3.2 oz) SpO2 100% BMI 32.61 kg/m Last documented pain score (0-10 scale): Last Weight: Wt Readings from Last 1 Encounters: 05/16/24 94.4 kg (208 lb 3.2 oz) Mental Status: LAURA Patient Mental Status: oriented and alert IV Access: LAURA IV Access: None Nursing Mobility/ADLs: Walking Minimal assistance Transfer Minimal assistance Bathing Minimal assistance Dressing Minimal assistance Toileting Minimal assistance Feeding Independent Route Sales Delivery Drivers Supervisor Independent Med Delivery yes Wound Care Documentation and Therapy: Wound/Incision 05/10/24 Incision Sternum (Active) Site Assessment Clean;Dry;Intact 05/16/24 0800 Gianna-Wound Assessment Dry;Intact 05/16/24 0800 Odor None 05/16/24 0800 Drainage Amount None 05/16/24 0800 Treatments Site care 05/16/24 0400 Primary Dressing Liquid dressing adhesive 05/16/24 0800 Dressing Status Clean, dry & intact 05/16/24 0800 State of Healing Closed wound edges 05/16/24 0400 Number of days: 6 Wound/Incision 05/10/24 Incision Calf Anterior;Left;Proximal (Active) Site Assessment Clean;Dry;Intact 05/16/24 0800 Gianna-Wound Assessment Dry;Intact 05/16/24 0800 Odor None 05/16/24 0800 Drainage Amount None 05/16/24 0800 Treatments Site care 05/16/24 0400 Primary Dressing Liquid dressing adhesive 05/16/24 0800 Dressing Status Clean, dry & intact 05/16/24 0800 State of Healing Closed wound edges 05/16/24 0400 Number of days: 6 Wound/Incision 05/12/24 Skin Tear Leg Anterior;Left;Proximal;Upper (Active) Site Assessment Clean;Dry;Intact 05/16/24 0800 Gianna-Wound Assessment Ecchymotic 05/16/24 0800 Odor None 05/16/24 0800 Drainage Amount Copious 05/16/24 0800 Treatments Site care 05/16/24 0400 Primary Dressing Liquid dressing adhesive 05/16/24 08 Dressing Status Clean, dry & intact 05/16/24 08 State of Healing Closed wound edges 05/16/24 0400 Number of days: 3 Elimination: Continence: Bowel: yes Bladder: yes Urinary Catheter: None Colostomy/Ileostomy/Ileal Conduit: None Date of Last BM: 05.16.24 Intake/Output Summary (Last 24 hours) at 05/16/2024 09 Last data filed at 05/16/2024 0030 Gross per 24 hour Intake 740 ml Output -- Net 740 ml I/O last 3 completed shifts: In: 740 (7.5 mL/kg) [P.O.:740] Out: - (0 mL/kg) Weight: 98.7 kg Safety Concerns: history of falls (last 30 days) and at risk for falls Impairments/Disabilities: none Nutrition Therapy: Current Nutrition Therapy: Oral diet: carb control 4 carbs/meal (1800kcals/day) Routes of Feeding: oral Liquids: thin liquids Daily Fluid Restriction: no Last Modified Barium Swallow with Video (Video Swallowing Test): not done Treatments at the Time of Hospital Discharge: Respiratory Treatments: CPAP at night Oxygen Therapy: is not on home oxygen therapy. Ventilator: No ventilator support Rehab Therapies: physical therapy and occupational therapy Weight Bearing Status/Restrictions: no restriction Other Medical Equipment (for information only, NOT a DME order): wheeled walker Other Treatments: None Patient's personal belongings (please select all that are sent with patient): glasses, CPAP, cell phone RN SIGNATURE: MANAGEMENT/SOCIAL WORK SECTION Inpatient Status Date: 05/10/24 Discharging to Facility/ Agency Name: [facility] Address: [address] [place], [place] [address] [address] Fax: Dialysis Facility (if applicable) Name: Address: Dialysis Schedule: Phone: Fax: Shoulder Puncher/Senior Research Scientist signature: ICIAN SECTION Name: Farhana Thrasher Prognosis: good Condition at Discharge: stable Rehab Potential (if transferring to Rehab): good Recommended Labs or Other Treatments After Discharge: BMP to monitor creatinine and electrolytes daily. Lasix and K supplement. GIANNA wraps to BLE. PT/OT. The individual is being admitted to a nursing facility directly from an [facility] or a unit of a [facility] that is not operated by or licensed by [facility] under section 5119.14 or 5160-3-15.1 5 The individual requires the level of services provided by a nursing facility for the condition for which he or she was treated in the hospital and, Physician Certification: I certify the above information and transfer of Farhana Thrasher is necessary for the continuing treatment of the diagnosis listed and that he requires acute rehab for less than 30 days. Update Admission H&P: 84 y.o. male referred by Dr. Elder for CABG. Patient has history of CAD, carotid artery disease, dyslipidemia, DM, and Parkinsonism. Pt saw Cardiology on 03/23/24 and reported SOB and chest burning with exertion a month prior. Stress test was ordered which showed moderate size reversible perfusion defect of the lateral wall suggestive of ischemia. Echocardiogram was also completed which demonstrated mild to moderate mitral valve insufficiency. Pt then underwent a heart catheterization on 04/24/24 which demonstrated severe multivessel CAD. Seen Dr. Velasco in OP setting on 04/25/24, agreeable to CABG and underwent surgery on 05/10/24. Extubated post-op as expected. Requiring low dose pressor support briefly, resuscitated with fluids, given 1uPRBC. Chest tubes removed. Patient progressing withPT/OT but still requiring assistance. Diuresis started for increased weight and fluid overload. Tolerating well. Started on GDMT for CABG. Able to discharge to [facility] on POD#06. PHYSICIAN SIGNATURE: Wound care/dressing changes: -Surgical incisions leave open to air, cleanse daily with mild soap & warm water, pat dry, no lotion or powders on incision.Call if incision becomes reddened, opens or drains. Respiratory Care: -Cough and Deep Breath; Use incentive spirometry 10 times every hour while awake for 2 weeks. -Oxygen therapy-prn- Maintain oxygen sat> 92% Medications: -see Medication reconciliation (Med rec) Additional Orders: -Sternal precautions (no lifting, pushing, pulling >10 lbs) for 6 weeks-use heart pillow -Vitals every 8 hours while awake-call for fever and chills -Daily weights- call for weight gain -Wear TEDs during day and off at night. -GIANNA wraps to BLE if TEDs unavailable. -Monitor weight daily and swelling. Lab/Imaging Work: -BMP to monitor electrolytes and creatinine while diuresing. Activity/Weight Bearing: -Up with assistance: up in chair for all meals, ambulate 3-4 times a day -Ok to shower with assist (if pt has IV line then only if completely covered) Therapies: -PT: Eval and treat OT: eval and treat Consults: -Cardiology. Post-op CABG, known to Dr. Elder. Follow up Appointments: Date: 05/25/24 Time: 01:00PM Post op follow up->phone call from TARYN. In person visit to be scheduled once Dc'd from [facility]. [address] [place] [address] documented in this [facility]03-25-2025 Miscellaneous Notes* Care Coordination - Prema Chilel RN - 05/16/2024 9:33 AM EDT Received call from Lciha at [facility] that they are able to accept patient. Requested discharge order, completed LAURA and transportation be set up. * Care Coordination - ALVARADO Villavicencio - 05/16/2024 9:26 AM EDT CHANTEL arranged transport through [facility] to [facility] at 11:00 am. TCC, RN, Facility, Corporate Claims Examiner, Pt and Pt's spouse notified. * Care Plan - Radha Farley RN - 05/16/2024 2:32 AM EDT Problem: Knowledge Deficit Goal: Patient/family/caregiver demonstrates understanding of disease process, treatment plan, medications, and discharge instructions Outcome: Progressing Problem: Potential for Compromised Skin Integrity Goal: Skin Integrity is Maintained or Improved Outcome: Progressing Goal: Nutritional status is improving Outcome: Progressing Problem: Urinary Incontinence Goal: Perineal skin integrity is maintained or improved Outcome: Progressing Problem: Problem Interventions Goal: Assess Nutritional Intake Outcome: Progressing Problem: Potential for Falls Goal: I will remain free of falls Outcome: Progressing * Care Coordination - ALVARADO Villavicencio - 05/15/2024 11:09 AM EDT CHANTEL reached out to Licha at [facility]. Licha stated that she just received pt's referral and that itneeded reviewed by the Dr. Licha stated that it would be the end of the day when she would know if ptis accepted. CHANTEL provided TCC's information for Licha to follow up when acceptance is approved/denied. CHANTEL notified pt and will continue to follow. * Care Coordination - Kay Gutierrez - 05/15/2024 10:02 AM EDT Referral placed to MICHELINE - [facility] via [facility] per TCC request. Await review and response regarding ability to accept. TCC notified. * Care Coordination - Unknown Case Management - 05/15/2024 10:02 AM EDT Patient Choice Patient Name: FARHANA THRASHER Date of : 1940 All Providers Sent Referral Name: [facility] Address: [address] [place] [address] * Care Coordination - Prema Chilel RN - 05/15/2024 9:49 AM EDT Care Management Progress Note Patient remains in ICU s/p CABG x 3 05/10. PT recommending IPR. Discussion had with Patient, Spouse and HR ASSISTANT at the bedside regarding Rehab. Patient is requesting a referral to [facility]. Referral requested to [facility] in [facility]. Length of Stay (Days): 5 GMLOS: 5.8 * Care Plan - Birdie Kang RN - 05/14/2024 3:11 PM EDT Problem: Potential for Compromised Skin Integrity Goal: Nutritional status is improving Outcome: Progressing Problem: Knowledge Deficit Goal: Patient/family/caregiver demonstrates understanding of disease process, treatment plan, medications, and discharge instructions Outcome: Adequate for Discharge Problem: Potential for Compromised Skin Integrity Goal: Skin Integrity is Maintained or Improved Outcome: Adequate for Discharge Problem: Urinary Incontinence Goal: Perineal skin integrity is maintained or improved Outcome: Adequate for Discharge Problem: Problem Interventions Goal: Assess Nutritional Intake Outcome: Adequate for Discharge * Care Plan - Birdie Kang RN - 05/13/2024 2:52 PM EDT Problem: Knowledge Deficit Goal: Patient/family/caregiver demonstrates understanding of disease process, treatment plan, medications, and discharge instructions Outcome: Adequate for Discharge Flowsheets (Taken 05/12/2024 1505) Patient/family/caregiver demonstrates understanding of disease process, treatment plan, medications, and discharge instructions: Complete learning assessment and assess knowledge base Provide teaching via preferred learning methods Provide teaching at level of understanding Problem: Potential for Compromised Skin Integrity Goal: Skin Integrity is Maintained or Improved Outcome: Adequate for Discharge Goal: Nutritional status is improving Outcome: Adequate for Discharge Problem: Urinary Incontinence Goal: Perineal skin integrity is maintained or improved Outcome: Adequate for Discharge Problem: Problem Interventions Goal: Assess Nutritional Intake Outcome: Adequate for Discharge * Care Plan - Birdie Kang RN - 05/12/2024 3:05 PM EDT Problem: Knowledge Deficit Goal: Patient/family/caregiver demonstrates understanding of disease process, treatment plan, medications, and discharge instructions Outcome: Progressing Flowsheets (Taken 05/12/2024 1505) Patient/family/caregiver demonstrates understanding of disease process, treatment plan, medications, and discharge instructions: Complete learning assessment and assess knowledge base Provide teaching via preferred learning methods Provide teaching at level of understanding Problem: Potential for Compromised Skin Integrity Goal: Skin Integrity is Maintained or Improved Outcome: Progressing Problem: Potential for Compromised Skin Integrity Goal: Nutritional status is improving Outcome: Progressing Problem: Urinary Incontinence Goal: Perineal skin integrity is maintained or improved Outcome: Progressing Problem: Problem Interventions Goal: Assess Nutritional Intake Outcome: Progressing * Care Plan - Birdie Kang RN - 05/11/2024 4:16 PM EDT Problem: Knowledge Deficit Goal: Patient/family/caregiver demonstrates understanding of disease process, treatment plan, medications, and discharge instructions Outcome: Progressing Problem: Potential for Compromised Skin Integrity Goal: Skin Integrity is Maintained or Improved Outcome: Progressing Goal: Nutritional status is improving Outcome: Progressing Problem: Urinary Incontinence Goal: Perineal skin integrity is maintained or improved Outcome: Progressing Problem: Problem Interventions Goal: Assess Nutritional Intake Outcome: Progressing * Op Note - Daysi Velasco MD - 05/10/2024 7:23 AM EDT Images from the original note were not included. Cardiothoracic Surgery Operative Report Pre-operative Diagnosis: Multivessel coronary artery disease Post-operative Diagnosis: Multivessel coronary artery disease Procedure: 1. Coronary revascularization x 3: Left internal mammary artery grafted to the left anterior descending coronary artery, reverse saphenous vein graft grafted to the first obtuse marginal coronary artery, reverse saphenous vein graft grafted to the posterior descending coronary artery with endarterectomy 2. Endoscopic vein harvesting left lower extremity (knee to thigh) 3. Intraoperative transesophageal echocardiography Surgeon: Daysi Velasco MD Element Winding Machine Tender(s): [] Yesenia Taylor [] Gladis Melgar [x] Vicky Tong [] Vicky Le [x] JIM Rosales Anesthesia: General Estimated blood loss: Difficult to estimate due to the nature of the surgery. Cell Saver and pump suction utilized. Total IV fluids: See anesthesia and perfusion record Blood Transfusion?: None Drains: Mediastinal and bilateral pleural drains Specimens: Endarterectomy specimen right coronary arterial system Complications: None Condition: Stable upon transfer to the intensive care unit Prophylactic Antibiotics: Yes 1st or 2nd generation cephalosporin given (or other antibiotic in the event of an allergy) within 1hour of surgical incision (two hours if receiving Vancomycin or flouroquinolone) If NO, indication reason why: [] Patient on continuous antibiotics for documented preoperative infection [] Other: The STS Risk Calculator score was calculated and discussed with the patient/family prior to surgery. Yes: [x] No: [] Not a risk calculated procedure [] Emergent or Emergent/Salvage Used of SUSAN: Yes No due to: [] Subclavian stenosis [] Emergent or Emergent/Salvage [] Prior cardiothoracic surgery [] Prior mediastinal radiation [] No bypassable LAD disease, LAD not needed/bypassed: (This can include clean LAD, diffusely diseased LAD or other condition resulting in the LAD not being bypassed). Beta-soni within 24 hours prior to surgical incision: [x] Yes - please see documentation in EMR [] No [] Allergy [] Heart block [] COPD [] Hypotension BP: [] Bradycardia HR: INDICATIONS FOR SURGERY: This 84-year-old gentleman has had progressive angina. A stress test was performed which was abnormal. This led to a subsequent cardiac catheterization which revealed multivessel coronary artery disease. The patient has been active but is limited by parkinsonism (manifested by an intention tremor), diabetes mellitus, and neuropathy in both lower extremities for which she uses a cane and leg braces when he leaves the house. His echo shows a normal ejection fraction without valvular pathology. His carotids showed no evidence of obstructive disease. We discussed the options for treatment, which include medication, PCI/stents, and CABG. We have opted to proceed with CABG as the most durable solution to this patient's multivessel coronary artery disease with proximal LAD lesion in the background of diabetes. While his recovery may take a bit longer due to his diabetic neuropathy, I believe his perioperative risk remains low, at approximately 2%. The overall risks benefits and alternatives were discussed with the patient and we will proceed with coronary bypass surgery which would include grafts to his LAD, the distal circumflex coronary artery, and the right coronary artery. DESCRIPTION OF PROCEDURE: Procedure Preparation: Patient was taken to the operative suite and placed under general endotracheal anesthesia. Monitoring lines were inserted by the department of anesthesia. Intraoperative transesophageal echocardiography was performed. The findings will follow under a separate dictation. No significant surgical valvular pathology was seen. The patient was positioned prepped and draped. Pressure and contact points were protected. An appropriate timeout was conducted. Conduit [place] [facility] Cardiopulmonary Bypass: A LEFT lower extremity incision was made and the greater saphenous vein was procured using an endoscopic vein harvesting technique. The vein was prepared in the usual fashion and the incisions were closed in the usual manner. The vein had ADEQUATE caliber and size and had ADEQUATE flow. Simultaneously, a median sternotomy was employed and the left internal mammary artery was harvestedin a skeletonized and pedicled fashion. The internal mammary artery had adequate caliber and flow. Prior to division of the left internal mammary artery, heparin was administered to obtain an ACT of greater than 400 seconds. The pericardium was open, marsupialized, and pursestrings were placed in preparation for central cannulation. Central cannulation progressed with a standard aortic cannula inthe distal ascending aorta, a cardioplegia needle in the proximal ascending aorta and a multistage venous cannula via the right atrium into the inferior vena cava. No significant calcification was noted within the ascending aorta. Once cardiopulmonary bypass had been established examination of the heart, the coronary arteries, and overall anatomy was undertaken. Bypass graft length measurements were obtained with a heart full to adequately engaged the length of the bypass grafts. Subsequently, the aorta was crossclamped and cardioplegia was administered. A minimum of 1 L of cardioplegia was initially administered and then intermittent aliquots of cold blood were given between each distal anastomosis. Coronary Artery Bypass Grafting: All DISTAL ANASTOMOSES were performed first in a similar fashion as follows: The target coronary artery was identified, an arteriotomy was performed, and the bypass conduit was grafted end-to-side with a running 7-0 Prolene suture in an open fashion. Each anastomosis was probed prior to completion with a 1.5 mm probe to assure patency and then infused with saline at the conclusion of the anastomosis to assure adequate flow. Once we had weaned off cardiopulmonary bypass, all bypass conduits wereinterrogated with a Doppler to assure excellent flow. Bypass #1: A reverse saphenous vein graft grafted to the posterior descending branch of the right coronary artery. There was heavy calcification that necessitated performance of an endarterectomy. A large endarterectomy specimen was retrieved and sent for pathologic evaluation. The target coronary artery was ADEQUATE and the graft had ADEQUATE caliber. This anastomosis proceeded smoothly and there was good flow. Bypass #2: A reverse saphenous vein graft grafted to the first obtuse marginal coronary artery. The target coronary artery was ADEQUATE and the graft had ADEQUATE caliber. This anastomosis proceeded smoothly and there was good flow. Bypass #3: A pedicled and skeletonized left internal mammary artery grafted to the mid left anterior descending coronary artery The target coronary artery was ADEQUATE and the graft had ADEQUATE caliber. This anastomosis proceeded smoothly and there was good flow. A hotshot was administered and the cross-clamp was removed. A partial occluding clamp was placed onthe ascending aorta and proximal anastomoses were constructed end-to-side with the ascending aorta.The bypass grafts were grafted end-to-side to the ascending aorta with a running fine Prolene suture. Care was taken to avoid kinking or twisting of the grafts. Adequate tension was visualized. Radiop aque markers (hemoclips) were placed on each proximal anastomosis. Inspection of all anastomoses was undertaken prior to weaning from cardiopulmonary bypass. Weaning and Separation from Cardiopulmonary Bypass and Closure: We weaned and from cardiopulmonary bypass. Ongoing support with vasoactive agents was NOT NEEDED. Once adequate cardiac function had been identified, protamine was administered. Decannulation ensued and purse strings were secured. Temporary pacing wires were applied. Chest tubes were inserted in the mediastinum and within each pleural space. Once hemostasis was achieved ,we proceeded with closure. The sternum was reapproximated [id number] wires and the overlying tissues were closed in multiple layers. The patient was transported to the intensive care unit in serious but stable condition. documented in this [facility]03-24-2025 NoteSW reached out to Licha at [facility]. Licha stated that she just received pt's referral and that it needed reviewed by the Dr. Licha stated that it would be the end of the day when she would know if pt is accepted. provided TCC's information for Licha to follow up when acceptance is approved/denied. notified pt and will continue to follow. [facility]03-24-2025 NoteReferral placed to [facility] via [facility] per TCC request. Await review and response regarding ability to accept. TCC notified. [facility]03-24-2025 NoteCare Management Progress Note Patient remains in ICU s/p CABG x 3 05/10. PT recommending IPR. Discussion had with Patient, Spouse and HR ASSISTANT at the bedside regarding Rehab. Patient is requesting a referral to [facility]. Referral requested to [facility] in [facility]. Length of Stay (Days): 5 GMLOS: 5.8[facility]03-24-2025 NoteCardiothoracic Surgery/CCM Progress Note PATIENT NAME: Farhana Thrasher DATE: 05/15/24 HPI: 84 y.o. male referred by Dr. Elder for CABG. Patient has history of CAD, carotid artery disease, dyslipidemia, DM, and Parkinsonism. Pt saw Cardiology on 03/23/24 and reported SOB and chest burning with exertion a month prior. Stress test was ordered which showed moderate size reversible perfusion defect of the lateral wall suggestive of ischemia. Echocardiogram was also completed which demonstrated mild to moderate mitral valve insufficiency. Pt then underwent a heart catheterization on 04/24/24 which demonstrated severe multivessel CAD. Seen Dr. Velasco in OP setting on 04/25/24, agreeable to CABG and underwent surgery on 05/10/24. Surgery/Procedure: 05/10/24: s/p CABGx3 (PADILLA-LAD, RSVG-OM1, RSVG-PDA with endarterectomy), LEVH, RAYMOND with Dr. Velasco Interval History: 05/15/24, POD# 05: Afebrile, NSR on tele, BP stable, on RA and PAP at night. No acute issues noted. Objective: Last BM Date: 05/14/24 Vitals: BP: (!) 162/44, MAP (mmHg): 72, BP Method: Automatic Heart Rate: 79 Resp: 18 Temp: 36.1 ?C (97 ?F), Temp Source: Temporal BMI (Calculated): 34.09 BMP: Recent Labs 05/13/24 0456 05/14/24 0010 05/15/24 0330 NA 139 138 140 K 4.1 3.8 3.8 CL 107 107 108* CO2 BUN 25* 30* 25* CREATININE 1.07 1.10 0.97 CALCIUM 8.9 8.7* 8.9 MG 2.1 2.3 2.2 CBC: Recent Labs 05/13/24 0456 05/14/24 0010 05/15/24 0330 WBC 10.5 8.5 7.5 HGB 8.2* 7.6* 7.3* HCT 25.6* 23.7* 23.4* PLT 161 179 218 MCV 86.2 85.9 87.0 RDW 14.6 14.6 14.6 INR: No results for input(s): INR in the last 72 hours. Physical Exam Vitals reviewed. Constitutional: General: He is not in acute distress. Appearance: He is not ill-appearing or diaphoretic. Cardiovascular: Rate and Rhythm: Normal rate and regular rhythm. Pulses: Normal pulses. Heart sounds: No murmur heard. Pulmonary: Effort: Pulmonary effort is normal. Breath sounds: No wheezing, rhonchi or rales. Abdominal: General: There is no distension. Palpations: Abdomen is soft. Tenderness: There is no abdominal tenderness. Musculoskeletal: General: Swelling present. Skin: General: Skin is warm and dry. Capillary Refill: Capillary refill takes less than 2 seconds. Findings: Bruising present. Comments: Surgical incisions well approximated, no redness, warmth or drainage noted. Neurological: General: No focal deficit present. Mental Status: He is alert and oriented to person, place, and time. Assessment: CAD s/p CABG T2DM, A1c 7.4% Dyslipidemia Carotid artery disease Parkinsonism Malignant neoplasm of prostate s/p prostatectomy Post operative Pulm Management: Normal Post-operative Course Post-operative Atrial Fibrillation: []Yes [x] No Acute blood loss anemia/consumptive thrombocytopenia Plan: Patient status: PCU Continue aspirin, statin and BB. -Full dose aspirin for endarterectomy, no Plavix. Home Sinemet. PO pain control. Encourage PO intake. Aggressive PT/OT. PAP at night. GI prophy: PO protonix DVT prophy:TEDs, SCDs, and Heparin SubQ Pulmonary hygiene: IS and Acapella Consults: Endocrinology following. -DC on home regimen. PT/OT: IPR (05/12/24) TCC/Discharge Planning: Attempt to DC to IPR, will request auth to be started. Will need new PT/OT assessments. Central Line: []Yes [x] No Arterial Line: []Yes [x] No Benavidez: []Yes [x] No Restraints: []Yes [x] No Patient discussed and plan of day developed from multidisciplinary rounds between Cardiothoracic Surgery (Cardiothoracic Surgeon, JULIO CESAR) and Critical Care Attending A total of 22 minutes were spent between the timx-dl-[id number] encounter, physical exam, reviewing the medical history, coordinating the patient's care, counseling/educating the patient, ordering medications/test/procedures, interpreting results and documenting clinical information in the patients electronic health record on the day of the encounter. The patient was seen and examined. Cardiac Core Medications: ASA, Statin, and BB EF: 55% (RAYMOND 05/10/24) Blood Conservation: Transfused. Foiling Machine Adjuster: Dr. Elder [facility]03-20-2025 NotePHYSICAL THERAPY [facility] Initial Evaluation Name/MRN: Marcus Thrasher ([id number]) Evaluation Date: 05/11/2024 Date of : 1940 Admission Date: 05/10/2024 5:34 AM Age: 84 y.o. Room/Bed: T1-116/T1-116 A Discharge Recommendation: Continue to assess pending progress, IP Rehab (may progress to home going.) Other: owns a cane Assessment IMPRESSION: Pt presents with impaired mobility. Noted post op generalized weakness and pain. Impaired balance during standing and gait. Pt currently requires assist with all functional mobility, decreased activity tolerance. Impaired balance during standing and gait. Will continue to assess pending progress, recommend IP Rehab. May progress to home home going. Admitting Diagnosis: CAD, s/p CABG x 3 Prognosis: fair Performance Deficits /Impairments: Increased Pain, Decreased Functional Mobility, Decreased ADL status, Decreased Strength, Decreased Endurance, and Decreased Balance Decision Making: Medium Complexity Subjective Pt in bed, agree with PT treatment. RN cleared for PT. Pain: [place] Pain Ratin = Hurts little more Pain Location: chest Past Medical History: Past Medical History: Diagnosis Date Carotid arterial disease (HCC) Coronary artery disease Depression Diabetes mellitus (HCC) type 2 Dyslipidemia GERD (gastroesophageal reflux disease) Hypertension Malignant neoplasm of prostate (HCC) Parkinsonism (HCC) Sleep apnea pt states wears a CPAP at bedtime Past Surgical History: Past Surgical History: Procedure Laterality Date CATARACT EXTRACTION Bilateral CHOLECYSTECTOMY PILONIDAL CYST EXCISION PROSTATECTOMY TONSILLECTOMY Admission Diagnosis: Patient Active Problem List Diagnosis Date Noted CAD in [place] artery 05/10/2024 FELICIA (obstructive sleep apnea) 05/04/2024 History of motion sickness 05/04/2024 Medical Precautions: No active isolations Proper PPE donned/doffed in accordance with facility standards. Fall Risk: [place] Fall Risk Score: 50 (High Risk) Precautions/Restrictions: Sternal Precautions: No Pushing, No Pulling, No Lifting Greater Than 10 lbs and No lifting greater than 10 lbs. Ok for modified UE precautions using Keep Your Move in the Tube technique Lines/Drains/Airways: tele, chest tube x 2, left radial art line. Fall Precautions Family/Caregiver Present: spouse Overall Cognitive Status: WFL Overall Orientation Status: Oriented x4 Vision: Not Assessed Hearing: normal Social/Functional History Patient admitted from home. Lives With: Spouse Type of Home: single family home Home Layout: Single Level Home Home Access: Stairs to Enter with Rails (# of stairs: a few) Bathroom Shower/Tub: suction grab bars and built in bench Toilet: Standard Home Equipment: front wheeled walker, rollator, and cane Homemaking Responsibilities: Needs Assist Receives Help From: Spouse Prior Level of Function Prior Level of ADL Function: Required Assist Prior Level of Mobility: Independent; Device: Straight Cane and bilat AFO Prior Level of Transfers: Independent Objective Lower Extremity Assessment AROM: Impaired: DF both 0 PROM: WFL Strength: Lower Extremity Strength Right Left Hip Flexion 4- 4- Hip Abduction Hip Extension Hip External Rotation (ER) Hip Internal Rotation (IR) Knee Extension 4+ 4+ Knee Flexion Ankle Dorsiflexion (DF) 0 0 Ankle Plantarflexion (PF) 3+ 3+ Inversion Eversion Sensation: Impaired: impaired both LE, neuropathy Balance: Balance During Session: Posture: fair Sitting - Static: SBA Sitting - Dynamic: Min Assist Standing - Static: Min Assist Standing - Dynamic: Min Assist Bed Mobility: Supine to sit: Mod Assist Sit to supine: Mod Assist, x2 Person Assist Scooting: Mod Assist Transfers Sit to stand: Mod Assist Stand to sit: Mod Assist Stand pivot: Min Assist Ambulation Ambulation 1 Assistive device(s) used: Boby Assist level: Min Assist, Mod Assist Distance (ft): 30 Quality of gait: uneven step length, slow jose, postural sway, path deviations, instability through all phases Sit to stand from EOB 2x. Sitting at EOB x 5 minutes. Assist with donning AFO and shoes. P&C ex 1-3 x 10 IS Outcome Measures AM-PAC How much HELP from another person do you currently need Turning from your back to your side while in a flat bed without using bedrails?: A Lot Moving from lying on your back to sitting on the side of a flat bed without using bedrails?: A Lot Moving to and from a bed to a chair (including a wheelchair)?: A Little Standing up from a chair using your arms (wheelchair or bedside chair)?: A Lot Walking in a hospital room?: A Lot Stair climbing assessed?: No AM-PAC Inpatient Mobility Raw Score (No Stairs) : 11 JH-HLM -HLM Score: Walked 10 steps or more (i.e. walked to restroom) Plan Pt would benefit from skilled acute PT services to address Strengthening, Gait Training, Bal (more content not included)...[facility]03-20-2025 NoteNutrition Assessment Type and Reason for Visit: Initial, Consult, Patient Education (s/p open heart surgery) Nutrition Recommendations/Plan: Continue 5 carb choices (75 g/meal) diet as ordered Per MNT protocol, will order Ensure HP BID Monitor swallowing for indication for STAKEHOLDER MANAGER evaluation. Pt reports hx of swallowing issues (see assessment), however denies choking Diet education not indicated due to hx of diet eduction and advanced age RD will monitor overall nutrition status and will follow weekly Malnutrition Assessment: Malnutrition Status: At risk for malnutrition (Comment) Context: Acute Illness Findings of the 6 clinical characteristics of malnutrition: Energy Intake: Mild decrease in energy intake (Comment) Weight Loss: No significant weight loss Body Fat Loss: No significant body fat loss Muscle Mass Loss: No significant muscle mass loss Fluid Accumulation: Moderate to Severe Extremities Continuous Pickling Line Pickler Strength: Not Performed Nutrition Assessment: Per chart: pt with PMH including CAD, dyslipidemia, DM, and Parkinson's disease. Pt saw Cardiology on 03/23/24 and reported SOB and chest burning with exertion a month prior. Stress test was ordered which showed moderate size reversible perfusion defect of the lateral wall suggestive of ischemia. Echocardiogram was also completed which demonstrated mild to moderate mitral valve insufficiency. Pt then underwent a heart catheterization on 04/24/24 which demonstrated severe multivessel CAD. Seen Dr. Velasco in OP setting on 04/25/24, agreeable to CABG and underwent CABGx3 (PADILLA-LAD, RSVG-OM1, RSVG-PDA with endarterectomy), LEVH, RAYMOND with Dr. Velasco 05/10. POD #1. Extubated post-op, diet ordered. Pt is seen alert, laying bed with spouse at bedside. He reports he ate ~1/2 of noodle soup, crackers, peaches for lunch, states appetite is ok, denies N/V/D. Prior to admission, pt was eating very well with a very good appetite at baseline, follows a diabetes diet. He does report some difficulty with swallowing due to an abnormality in his spine that is pushing on my esophagus and states that he has a leak, a little bit, into my trachea, states these issues have been evaluated already. Pt reports stable weight. He endorses hx of diet education. He is agreeable to ONS. Estimated Daily Nutrient Needs: Energy Requirements Based On: Kcal/kg Weight Used for Energy Requirements: [place] Weight for Energy Calculation (kg): 67.1 kg (25-30 kcal/kg) Total Energy Requirements (kcals/day): 7519-9698 Weight Used for Protein Requirements: [place] Weight in Kg Used for Protein Requirements: 67.1 kg (1.2-1.5 g/kg) Estimated Total Protein (g/day): 81-101 Estimated Daily Total Fluid (ml/day): per MD Nutrition Related Findings: Nutrition History: Independent of feeding. Teeth: Intact GI symptoms: Decreased appetite. Ashok Scale Score: 14. Wound Type: Surgical Incision Net IO Since Admission: 4,740.2 mL [05/11/24 1330] Edema: RUE Edema: None, LUE Edema: None, RLE Edema: Moderate pitting, indentation subsides rapidly, LLE Edema: Moderate pitting, indentation subsides rapidly Bowel Sounds (All Quadrants): Present, Audible Abdomen Inspection: Soft, Distended Last BM Date: 05/09/24 O2 Delivery Method: Nasal cannula, FiO2 (%): 40 %, O2 Flow Rate (L/min): 4 L/min (found on 4L) Labs and meds reviewed: acetaminophen, 1,000 mg, Oral, q8h [START ON 05/12/2024] aspirin, 325 mg, Oral, Daily atorvastatin, 40 mg, Oral, Nightly carbidopa-levodopa, 1 tablet, Oral, TID ceFAZolin, 2,000 mg, IntraVENous, q8h chlorhexidine, , Topical, Daily chlorhexidine, 15 mL, Mouth/Throat, BID heparin, 5,000 Units, SubCUTAneous, BID [START ON 05/12/2024] insulin glargine, 18 Units, SubCUTAneous, q AM insulin lispro, 0-12 Units, SubCUTAneous, TID WC insulin lispro, 6 Units, SubCUTAneous, TID WC Lidocaine, 1 patch, Topical, Daily mupirocin, , Nasal, BID [START ON 05/12/2024] pantoprazole, 40 mg, Oral, qAM AC polyethylene glycol (PEG) 3350, 17 g, Oral, Daily senna-docusate sodium, 2 tablet, Oral, Nightly sodium chloride 0.9%, 10 mL, IntraVENous, 2 times per day sodium chloride 0.9%, 5-40 mL, IntraCATHeter, q8h lactated ringers, 250 mL, Last Rate: Stopped (05/11/24 0658) norepinephrine, 0.01-0.2 mcg/kg/min, Last Rate: Stopped (05/11/24 1131) sodium chloride, 20 mL/hr, Last Rate: 20 mL/hr (05/10/24 1230) BMP: Recent Labs 05/10/24 1104 05/10/24 1348 05/10/24 1739 05/11/24 0459 NA 139 141 143 140 K 3.6 3.1* 4.6 4.4 CL 111* 112* 115* 113* CO2 22* 21* 19* 21* BUN 17 17 16 14 CREATININE 0.84 0.89 0.84 0.80 GLUCOSE 144* 205* 146* 122* CALCIUM 9.8 8.4* 8.2* 8.1* MG 3.4* 2.6 -- 2.1 PHOS 3.4 4.0 -- -- Recent Labs 05/11/24 0615 05/11/24 0705 05/11/24 0758 05/11/24 0908 05/11/24 1023 05/11/24 1212 POCGLU 96 137* 128* 148* 150* 127* Lab Results Component Value Date HGBA1C 7.4 (H) 05/04/2024 Current Nutrition Therapies: Adult diet R (more content not included)...[facility]03-20-2025 Consult note* Telma Morfin, JUSTINE - 05/11/2024 1:30 PM EDTAssociated Order(s): IP CONSULT TO DIETITIAN Nutrition Assessment Type and Reason for Visit: Initial, Consult, Patient Education (s/p open heart surgery) Nutrition Recommendations/Plan: Continue 5 carb choices (75 g/meal) diet as ordered Per MNT protocol, will order Ensure HP BID Monitor swallowing for indication for STAKEHOLDER MANAGER evaluation. Pt reports hx of swallowing issues (see assessment), however denies choking Diet education not indicated due to hx of diet eduction and advanced age RD will monitor overall nutrition status and will follow weekly Malnutrition Assessment: Malnutrition Status: At risk for malnutrition (Comment) Context: Acute Illness Findings of the 6 clinical characteristics of malnutrition: Energy Intake: Mild decrease in energy intake (Comment) Weight Loss: No significant weight loss Body Fat Loss: No significant body fat loss Muscle Mass Loss: No significant muscle mass loss Fluid Accumulation: Moderate to Severe Extremities Continuous Pickling Line Pickler Strength: Not Performed Nutrition Assessment: Per chart: pt with PMH including CAD, dyslipidemia, DM, and Parkinson's disease. Pt saw Cardiology on 03/23/24 and reported SOB and chest burning with exertion a month prior. Stress test was ordered which showed moderate size reversible perfusion defect of the lateral wall suggestive of ischemia. Echocardiogram was also completed which demonstrated mild to moderate mitral valve insufficiency. Pt then underwent a heart catheterization on 04/24/24 which demonstrated severe multivessel CAD. Seen Dr. Velasco in OP setting on 04/25/24, agreeable to CABG and underwent CABGx3 (PADILLA-LAD, RSVG-OM1, RSVG-PDA with endarterectomy), LEVH, RAYMOND with Dr. Velasco 05/10. POD #1. Extubated post-op, diet ordered. Ptis seen alert, laying bed with spouse at bedside. He reports he ate ~1/2 of noodle soup, crackers, peaches for lunch, states appetite is ok, denies N/V/D. Prior to admission, pt was eating very well with a very good appetite at baseline, follows a diabetes diet. He does report some difficulty with swallowing due to an abnormality in his spine that is pushing on my esophagus and states that he has a leak, a little bit, into my trachea, states these issues have been evaluated already. Pt reports stable weight. He endorses hx of diet education. He is agreeable to ONS. Estimated Daily Nutrient Needs: Energy Requirements Based On: Kcal/kg Weight Used for Energy Requirements: [place] Weight for Energy Calculation (kg): 67.1 kg (25-30 kcal/kg) Total Energy Requirements (kcals/day): 2931-6870 Weight Used for Protein Requirements: [place] Weight in Kg Used for Protein Requirements: 67.1 kg (1.2-1.5 g/kg) Estimated Total Protein (g/day): 81-101 Estimated Daily Total Fluid (ml/day): per MD Nutrition Related Findings: Nutrition History: Independent of feeding. Teeth: Intact GI symptoms: Decreased appetite. Ashok Scale Score: 14. Wound Type: Surgical Incision Net IO Since Admission: 4,740.2 mL [05/11/24 1330] Edema: RUE Edema: None, LUE Edema: None, RLE Edema: Moderate pitting, indentation subsides rapidly,LLE Edema: Moderate pitting, indentation subsides rapidly Bowel Sounds (All Quadrants): Present, Audible Abdomen Inspection: Soft, Distended Last BM Date: 05/09/24 O2 Delivery Method: Nasal cannula, FiO2 (%): 40 %, O2 Flow Rate (L/min): 4 L/min (found on 4L) Labs and meds reviewed: acetaminophen, 1,000 mg, Oral, q8h [START ON 05/12/2024] aspirin, 325 mg, Oral, Daily atorvastatin, 40 mg, Oral, Nightly carbidopa-levodopa, 1 tablet, Oral, TID ceFAZolin, 2,000 mg, IntraVENous, q8h chlorhexidine, , Topical, Daily chlorhexidine, 15 mL, Mouth/Throat, BID heparin, 5,000 Units, SubCUTAneous, BID [START ON 05/12/2024] insulin glargine, 18 Units, SubCUTAneous, q AM insulin lispro, 0-12 Units, SubCUTAneous, TID WC insulin lispro, 6 Units, SubCUTAneous, TID WC Lidocaine, 1 patch, Topical, Daily mupirocin, , Nasal, BID [START ON 05/12/2024] pantoprazole, 40 mg, Oral, qAM AC polyethylene glycol (PEG) 3350, 17 g, Oral, Daily senna-docusate sodium, 2 tablet, Oral, Nightly sodium chloride 0.9%, 10 mL, IntraVENous, 2 times per day sodium chloride 0.9%, 5-40 mL, IntraCATHeter, q8h lactated ringers, 250 mL, Last Rate: Stopped (05/11/24 0658) norepinephrine, 0.01-0.2 mcg/kg/min, Last Rate: Stopped (05/11/24 1131) sodium chloride, 20 mL/hr, Last Rate: 20 mL/hr (05/10/24 1230) BMP: Recent Labs 05/10/24 1104 05/10/24 1348 05/10/24 1739 05/11/24 0459 NA 139 141 143 140 K 3.6 3.1* 4.6 4.4 CL 111* 112* 115* 113* CO2 22* 21* 19* 21* BUN 17 17 16 14 CREATININE 0.84 0.89 0.84 0.80 GLUCOSE 144* 205* 146* 122* CALCIUM 9.8 8.4* 8.2* 8.1* MG 3.4* 2.6 -- 2.1 PHOS 3.4 4.0 -- -- Recent Labs 05/11/24 0615 05/11/24 0705 05/11/24 0758 05/11/24 0908 05/11/24 1023 05/11/24 1212 POCGLU 96 137* 128* 148* 150* 127* Lab Results Component Value Date HGBA1C 7.4 (H) 05/04/2024 Current Nutrition Therapies: Adult diet Regular; 5 carb choices (75 gm/meal) Current Oral Intake Average Meal Intake: 51-75% (small meal) Average Supplements Intake: None Ordered Anthropometric Measures: Height: 170.2 cm (5' 7) Current Body Weight: 97.2 kg (214 lb 4.6 oz) (05/11) Admission Body Weight: 95.7 kg (211 lb) (05/10) Usual Body Weight: 94.3 kg (208 lb) (06/13) % Weight Change (Calculated): 3 [place] Body Weight (lbs) (Calculated): 148 lbs [place] Body Weight (Kg) (Calculated): 67 kg % [place] Body Weight (Calculated): 144.8 % BMI (kg/m2) (Calculated): 33.6 BMI Categories: Obese Class 1 (BMI 30.0-34.9) Wt Readings from Last 10 Encounters: 05/11/24 97.2 kg (214 lb 4.6 oz) 05/04/24 95.7 kg (211 lb) 04/25/24 94.8 kg (209 lb) Nutrition Diagnosis: Increased nutrient needs related to increase demand for energy/nutrients as evidenced by (s/p open heart surgery) Nutrition Interventions: Food and/or Nutrient Delivery: Continue Current Diet, Start Oral Nutrition Supplement Nutrition Education/Counseling: Education not indicated Coordination of Nutrition Care: Continue to monitor while inpatient Goals: Goals: PO intake 75% or greater, by next RD assessment Nutrition Monitoring and Evaluation: Behavioral-Environmental Outcomes: None Identified Food/Nutrient Intake Outcomes: Food and Nutrient Intake, Supplement Intake Physical Signs/Symptoms Outcomes: Biochemical Data, Chewing or Swallowing, GI Status, Fluid Status or Edema, Nutrition Focused Physical Findings, Skin, Weight Discharge Planning: Too soon to determine Telma Morfin RD, LD Contact: *[phone] or via [employer] chat * Denae Rosales - 05/11/2024 8:52 AM EDTAssociated Order(s): IP CONSULT TO CARDIAC REHAB Received referral and reviewed chart. Phase II Cardiopulmonary Rehab Referral discussed with Farhana Thrasher. Patient prefers cardiopulmonary rehab at [facility]. Given information on program at preferred location. * Jasmyn Mcnally APRN - ROCK WORKER - 05/10/2024 12:25 PM EDTAssociated Order(s): IP CONSULT TO ENDOCRINOLOGY Department of Internal Medicine Division of Endocrinology, Diabetes, & Metabolism Endocrinology Note Patient Name: Farhana Thrasher : 1940 AGE: 84 y.o. Room/Bed: OR/NONE Admission Date: 05/10/2024 Visit Date: 05/10/2024 Reason for Endocrine Consult: post op heart Provider/Team Requesting Consult: CTS PCP: KELSEY MOON MD Outpt Flow Match Sofa Cutter: No ASSESSMENT: DM2 with hyperglycemia and fci insulin Stress hyperglycemia CABGX3 HLD/CAD Obesity Body mass index is 33.05 kg/m . PLAN: Continue insulin gtt ICU goal <180 GMF goal <150 POCT BG ACHS-q1 on gtt Hypoglycemia management per protocol Carb controlled diet ANTICIPATED ENDOCRINE HOME GOING RECOMMENDATIONS: Optimized for Discharge from Endocrine standpoint: No Home Going Endocrine Rx Recommendations-- Tbd- if no CI resume home regimen Soliqua pen Jardiance home dose Metformin home dose Outpt Follow Up-- Can offer SUBJECTIVE/HPI: CHIEF COMPLAINT: No chief complaint on file. S/p CABGx3 Noted hx of DM2 in chart review BGL below-stable In bed Intubated/sedated Insulin gtt off Pressors as needed VSS NPO CT in place Spoke with team No family present Will clarify DM2 hx once extubated- tomorrow Type of DM: 2 Onset of DM: not clear Home DM Medication Regimen: per chart-Soliqua pen 100/33 at 45 units daily am, jardiance 25 mg po daily, metformin 1 g po bid DM control (last A1c/glucose data): Lab Results Component Value Date HGBA1C 7.4 (H) 05/04/2024 Glucose Date/Time Value Ref Range Status 05/10/2024 12:13 PM 135 (H) 70 - 100 mg/dL Final 05/10/2024 06:20 AM 114 (H) 70 - 100 mg/dL Final Review of Systems Unable to perform ROS: Intubated ROS negative except for those mentioned in HPI. OBJECTIVE: Vitals: 05/10/24 0625 05/10/24 0825 BP: (!) 144/66 Pulse: 54 Resp: 16 Temp: (!) 35.9 C (96.7 F) SpO2: 99% Weight: 211 lb (95.7 kg) 211 lb (95.7 kg) Height: 5' 7 (1.702 m) 5' 7 (1.702 m) Physical Exam Vitals and nursing note reviewed. Constitutional: General: He is sleeping. He is not in acute distress. Appearance: He is obese. He is ill-appearing. He is not toxic-appearing. Interventions: He is sedated and intubated. HENT: Head: Normocephalic. Mouth/Throat: Mouth: Mucous membranes are moist. Cardiovascular: Rate and Rhythm: Normal rate. Pulmonary: Effort: Pulmonary effort is normal. No respiratory distress. He is intubated. Abdominal: Tenderness: There is no guarding. Musculoskeletal: Cervical back: Normal range of motion. Skin: General: Skin is warm and dry. Coloration: Skin is pale. Comments: Intact incision 24 hour intake/output: Intake/Output Summary (Last 24 hours) at 05/10/2024 1226 Last data filed at 05/10/2024 1214 Gross per 24 hour Intake 2890.2 ml Output 735 ml Net 2155.2 ml Diet: NPO diet Medications (as per EMR): HomeMeds: Current Outpatient Medications Medication Instructions amLODIPine (Norvasc) 5 MG tablet Every evening aspirin 81 mg, Every evening atorvastatin (LIPITOR) 10 mg, Nightly Calcium Carb-Cholecalciferol (CALCIUM 500 + D3 PO) 1 tablet, Daily carbidopa-levodopa (Sinemet) 25-100 MG tablet 1 tablet, 3 times daily empagliflozin (JARDIANCE) 25 mg, Daily insulin glargine-lixisenatide (Soliqua) 100-33 UNT-MCG/ML pen 45 Units, Daily before breakfast metFORMIN (GLUCOPHAGE) 1,000 mg, 2 times daily with meals metoprolol succinate XL (TOPROL-XL) 12.5 mg, Daily Miconazole Nitrate 2 % ointment PRN mupirocin (Bactroban) 2 % ointment Apply liberal amount per nostril the night before surgery and then again the morning of surgery Propylene Glycol (LUBRICANT EYE DROP OP) PRN triamcinolone (Kenalog) 0.1 % ointment 1 Application, Daily PRN Vibegron 75 MG tablet 1 tablet, Daily Scheduled Meds:acetaminophen, 1,000 mg, Oral, q8h ceFAZolin, 2,000 mg, IntraVENous, q8h [START ON 05/11/2024] chlorhexidine, , Topical, Daily chlorhexidine, 15 mL, Mouth/Throat, BID Lidocaine, 1 patch, Topical, Daily mupirocin, , Nasal, BID [START ON 05/11/2024] pantoprazole, 40 mg, IntraVENous, Daily polyethylene glycol (PEG) 3350, 17 g, Oral, Daily senna-docusate sodium, 2 tablet, Oral, Nightly sodium chloride 0.9%, 10 mL, IntraVENous, 2 times per day sodium chloride 0.9%, 5-40 mL, IntraVENous, q12h sodium chloride 0.9%, 5-40 mL, IntraVENous, 2 times per day sodium chloride 0.9%, 5-40 mL, IntraCATHeter, q8h sugammadex, 4 mg/kg, IntraVENous, Once Continuous Infusions:EPINEPHrine, 0.01-0.2 mcg/kg/min insulin regular, 1-50 Units/hr lactated ringers, 250 mL nitroprusside, 0.1-3 mcg/kg/min norepinephrine, 0.01-0.2 mcg/kg/min propofol, 5-50 mcg/kg/min sodium chloride, 20 mL/hr sodium chloride, 50 mL/hr, Last Rate: 50 mL/hr (05/10/24 0635) PRN Meds:PRN medications: albumin human, ALPRAZolam, calcium gluconate, dextrose, dextrose, EPINEPHrine, glucagon (rDNA), glucose, ipratropium- albuterol, lactated ringers, magnesium hydroxide, magnesium sulfate OR magnesium sulfate, morphine sulfate OR morphine sulfate, nitroprusside, norepinephrine, ondansetron ODT OR ondansetron, oxyCODONE OR oxyCODONE, potassium chloride ORpotassium chloride OR potassium chloride, [START ON 05/11/2024] potassium chloride CR, sodium chloride, sodium chloride, sodium chloride, sodium chloride 0.9%, sodium chloride 0.9%, sodium chloride 0.9%, sodium chloride 0.9% Diagnostic Workup: I reviewed pertinent Laboratory results, Radiographic results, and Other Clinical Notes at the timeof today's encounter. Labs: No components found for: LABA1C No components found for: EAG Lab Results Component Value Date NA 139 05/10/2024 K 3.6 05/10/2024 CL 111 (H) 05/10/2024 CO2 22 (L) 05/10/2024 BUN 17 05/10/2024 CREATININE 0.84 05/10/2024 GLUCOSE 144 (H) 05/10/2024 CALCIUM 9.8 05/10/2024 No results found for: CHLPL, CHOL No results found for: TRIG No results found for: HDL No results found for: LDLCALC No results found for: VLDL No results found for: CHOLHDLRATIO No results found for: [id number] No results found for: TSH, [id number], Z0QUTVF, THYROIDAB Radiology reportsas per the Radiologist Radiology: POCT glucose meter Result Date: 05/10/2024 Performed by: [facility], [address] [place] [id number] CLIA ID: [id number] POCT glucose meter Result Date: 05/10/2024 Performed by: [facility], [address] [place] [id number] CLIA ID: [id number] History/Other: Past Medical History: Past Medical History: Diagnosis Date Carotid arterial disease (HCC) Coronary artery disease Depression Diabetes mellitus (HCC) type 2 Dyslipidemia GERD (gastroesophageal reflux disease) Hypertension Malignant neoplasm of prostate (HCC) Parkinsonism (HCC) Sleep apnea pt states wears a CPAP at bedtime Past Surgical History: Past Surgical History: Procedure Laterality Date CATARACT EXTRACTION Bilateral CHOLECYSTECTOMY PILONIDAL CYST EXCISION PROSTATECTOMY TONSILLECTOMY Allergy(ies): Allergies Allergen Reactions Rosuvastatin Other Reaction(s): Flu like symptoms Tape Other Reaction(s): skin tears Family History: Family History Problem Relation Name Age of Onset Stroke Mother COPD Father Coronary artery disease Father Coronary artery disease Brother Heart attack Brother Social History: Social History Tobacco Use Smoking status: Former Average packs/day: 1 pack/day for 11.0 years (11.0 ttl pk-yrs) Types: Cigarettes Start date: 1960 Smokeless tobacco: Never Vaping Use Vaping status: Never Used Substance Use Topics Alcohol use: Never Drug use: Never Portions of the information within this encounter were entered using an electronic dictation system. Best attempts were made to edit/proofread the information prior to note completion. Despite the review of information, some errors may remain. If there are questions related to the information contained within the note please contact the signing physician directly. I spent 35 minutes with the pt which involved coordination of care, medical evaluation, review of records, and/or counseling of the pt regarding his/her condition/disease state/prognosis on the date of this note. Cosigned by Lilian Cisse MD at 05/10/2024 1:48 PM EDT Associated attestation - Lilian Cisse MD - 05/10/2024 1:48 PM EDT I have personally performed a face to face diagnostic evaluation on this patient. In addition, I have reviewed the resident's/AUTOMOTIVE SERVICE WRITER/FOOTBALL PAD REPAIRER's care plan and agree with those findings I have performed a substantive portion of the the medical decision making. My findings are as follows: Patient is status post CABG Has type 2 diabetes on Soliqua, metformin and Jardiance per notes. Lab Results Component Value Date HGBA1C 7.4 (H) 05/04/2024 Currently on insulin drip 1.5 units/h Vitals: BP (!) 144/66 Pulse 77 Temp (!) 35.9 C (96.7 F) Resp 15 Ht 5' 7 (1.702 m) Wt 211lb (95.7 kg) SpO2 100% BMI 33.05 kg/m Constitutional: intubated Respiratory: No respiratory distress Cardiovascular System:o lower extremity edema Abdomen: obese A/P Type 2 diabetes with hyperglycemia with long-term insulin use Type 2 diabetes with cardiac complication Body mass index is 33.05 kg/m . Continue insulin drip BG Q 1 hour per protocol Will switch insulin drip to sc insulin if in 24 to 48 hours. Most likely patient will be discharged on his home regimen for diabetes as long as there is no contraindication Old records including available PCP, ED notes and or other specialists notes are reviewed. LABs and/or imaging are reviewed as detailed in the resident's/AUTOMOTIVE SERVICE WRITER/FOOTBALL PAD REPAIRER's note * TARYN Clark CNP - 05/10/2024 12:17 PM EDT Images from the original note were not included. [facility]: Critical Care Consultation Note Date: 05/10/24 PATIENT NAME: Farhana Thrasher : 1940 (84 y.o.) Reason for Consult: Critical Care & Vent Management HPI: Marcus Thrasher is a 84 y.o. male referred by Dr. Elder for CABG. Patient has history of CAD, carotid artery disease, dyslipidemia, DM, and Parkinson's disease. Pt saw Cardiology on 03/23/24 and reported SOB and chest burning with exertion a month prior. Stress test was ordered which showed moderatesize reversible perfusion defect of the lateral wall suggestive of ischemia. Echocardiogram was also completed which demonstrated mild to moderate mitral valve insufficiency. Pt then underwent a heart catheterization on 04/24/24 which demonstrated severe multivessel CAD. Seen Dr. Velasco in OP setting on 04/25/24, agreeable to CABG and underwent surgery on 05/10/24. Surgery: 05/10/24: Dr. Velasco- CABGx3, LEVH, RAYMOND Interval History: 05/10/24: POD #0: Patient arrived to the unit, intubated and sedated. Surgical hand off completed below. Surgery Hand Off: Arrival Time in CTVICU: 1200 Complications/Pertinent Events: Last Paralytic: 940 Medications given in route: Gtts OR report Epinephrine: 0.02mcg/kg/min Propofol: 25mcg/kg/min Insulin: off Amicar: 29 Current gtts upon arrival Epinephrine: 0.03mcg/kg/min Propofol: 15mcg/kg/min Insulin: off Amicar: 29 Devices: Epicardial wires: yes [x] no [] IABP: yes [] no [x] LVAD: yes [] no [x] Speed: Equipment: Back up controller yes [] no [x] Blood Transfusions Intra Op: yes [] no [x] CellSaver: Yes Vital Signs including Cardiac Numbers (if indicated) at Conclusion of Hand-off OR CTVICU CO 5 2.80 CI 2.4 5.80 CVP 7 5 SVR 798 869 PAP 13/11 20/01 Additional Interventions/Misc during Handoff Review of Systems Unable to perform ROS: Intubated Allergies: Rosuvastatin and Tape Past Medical History: has a past medical history of Carotid arterial disease (HCC), Coronary artery disease, Depression, Diabetes mellitus (HCC), Dyslipidemia, GERD (gastroesophageal reflux disease), Hypertension, Malignant neoplasm of prostate (HCC), Parkinsonism (HCC), and Sleep apnea. Past Surgical History: has a past surgical history that includes Prostatectomy; Cataract extraction (Bilateral); Tonsillectomy; Cholecystectomy; and Pilonidal cyst drainage. Social History: reports that he has quit smoking. His smoking use included cigarettes. He started smoking about 62 years ago. He has a 11 pack-year smoking history. He has never used smokeless tobacco. He reports that he does not drink alcohol and does not use drugs. Family History: family history includes COPD in his father; Coronary artery disease in his brother and father; Heart attack in his brother; Stroke in his mother. Medications: Prior to Admission medications Medication Sig Start Date End Date Taking? Authorizing Provider amLODIPine (Norvasc) 5 MG tablet Take by mouth every evening. Yes Historical Provider, aspirin 81 MG EC tablet Take 81 mg by mouth every evening. Yes Historical Provider, atorvastatin (Lipitor) 10 MG tablet Take 10 mg by mouth Nightly. Yes Historical Provider, Calcium Carb-Cholecalciferol (CALCIUM 500 + D3 PO) Take 1 tablet by mouth daily. Yes Historical Provider, carbidopa-levodopa (Sinemet) 25-100 MG tablet Take 1 tablet by mouth 3 times daily. Yes Historical Provider, insulin glargine-lixisenatide (Soliqua) 100-33 UNT-MCG/ML pen Inject 45 Units under the skin every morning (before breakfast). Yes Historical Provider, metoprolol succinate XL (Toprol-XL) 25 MG 24 hr tablet Take 12.5 mg by mouth daily. Do not crush orchew. Yes Historical Provider, mupirocin (Bactroban) 2 % ointment Apply liberal amount per nostril the night before surgery and then again the morning of surgery 04/25/24 Yes Carter Le APRN - HEBER Propylene Glycol (LUBRICANT EYE DROP OP) Administer into affected eye(s) as needed. Both eyes Yes Historical Provider, Vibegron 75 MG tablet Take 1 tablet by mouth daily. Yes Historical Provider, empagliflozin (Jardiance) 25 MG Take 25 mg by mouth daily. Historical Provider, metFORMIN (Glucophage) 1000 MG tablet Take 1,000 mg by mouth 2 times daily (with meals). HistoricalProviderMD Miconazole Nitrate 2 % ointment Apply topically as needed. Historical Provider, triamcinolone (Kenalog) 0.1 % ointment Apply 1 Application topically Daily as needed. Historical Provider, insulin glargine (Lantus) 100 UNIT/ML injection Inject 45 Units under the skin every morning. 05/04/24 Historical Provider, Objective: BP (!) 144/66 Pulse 54 Temp (!) 35.9 C (96.7 F) Resp 16 Ht 5' 7 (1.702 m) Wt 211 lb (95.7 kg) SpO2 99% BMI 33.05 kg/m Intake/Output Summary (Last 24 hours) at 05/10/2024 1217 Last data filed at 05/10/2024 1147 Gross per 24 hour Intake 2890.2 ml Output 700 ml Net 2190.2 ml Physical Exam Constitutional: Interventions: He is sedated and intubated. HENT: Nose: Comments: ETT/OG. Neck: Comments: Central line and Mitchell. Cardiovascular: Rate and Rhythm: Normal rate and regular rhythm. Pulses: Normal pulses. Heart sounds: No murmur heard. Pulmonary: Effort: He is intubated. Comments: Ventilator assisted. Abdominal: General: There is no distension. Palpations: Abdomen is soft. Comments: Chest tubes. Genitourinary: Comments: Benavidez. Musculoskeletal: General: Swelling present. Skin: General: Skin is warm and dry. Capillary Refill: Capillary refill takes less than 2 seconds. Findings: Bruising present. Comments: Surgical dressing over MSI, no drainage noted. GIANNA wrap on LLE. Diagnostics: Reviewed in EMR Labs: Reviewed in EMR BMP: Recent Labs 05/10/24 1104 NA 139 K 3.6 CL 111* CO2 22* BUN 17 CREATININE 0.84 CALCIUM 9.8 MG 3.4* PHOS 3.4 CBC: Recent Labs 05/10/24 1104 05/10/24 1105 WBC 11.3* -- HGB 7.9* 10.2 HCT 24.9* -- PLT 124* -- MCV 86.5 -- RDW 14.0 -- INR: Recent Labs 05/10/24 1104 INR 1.3* Assessment: CAD s/p CABG T2DM, A1c 7.4% Dyslipidemia Carotid artery disease Parkinsons Malignant neoplasm of prostate s/p prostatectomy Post operative Pulm Management: Normal Post-operative Course Post-operative Atrial Fibrillation: []Yes [x] No Acute blood loss anemia/consumptive thrombocytopenia Plan: - Sugamadex x1 - Wean sedation as able, goal RASS -1 to 0 - SAT/SBT when appropriate->extubate - Re-check lab work - STAT EKG and CXR - Hemodynamic goals: CI >2.0, SBP 90-130 mmHg, MAP 60-75 - PRN Hypertension Nipride -PRN Hypotension CI >2.0 euvolemic with low SVR- Levophed gtt CI <2.0 euvolemic - Epinephrine gtt - Temp pacing wires/mode: V-wires to backup - Chest tubes: no air leak or fluctuation noted, suction -20 - Cefazolin - surgical prophy for 5 doses total - Wean to Extubation: Arrival Time in unit: 1200 - Vent: ACVC+, TV 6ml/kg/min, rate 12, fio2 100% PEEP 8 VAP protocol: HOB >30 degrees; peridex BID - Insulin gtt; per endo/protocol - GI prophy: Protonix IV daily Critical Care time spent 30 minutes. The time involved in the performance of this care was exclusive of separately billable procedures, teaching time and treating other patients. The time was spent personally by myself for the following activities: examination of the patient, ordering and/or performing treatment, reviewing the laboratory and radiographic studies, and if applicable, ventilator management and blood gas interpretation. Patient treatment plan and plan of care discuss with Dr. Luz Hough Cosigned by Luz Hough DO at 05/10/2024 1:52 PM EDT Associated attestation - Luz Hough DO - 05/10/2024 1:52 PM EDT I have personally performed a [id number] diagnostic evaluation on this patient on date of service05/10/24. History, labs, imaging studies, and electronic medical record have been reviewed by me. This note documented by the []greenhouse grower [x]JULIO CESAR reflects my history, exam, and medical decision making. I have reviewed and agree with the care plan. Changes were made in the orders as necessary. ROSdocumentation was reviewed and negative unless otherwise stated in HPI. Assessment: -mvCAD s/p CABGx3 -acute post op pulmonary management: expected course -acute post op blood loss anemia, consumptive thrombocytopenia -mild carotid artery disease -DM2 with hyperglycemia (A1c 7.4) -Parkinson's disease Plan: -cont mech vent, wean as able. Sugammadex x1. Wean sedation as able, SBT once awake/appropriate. -Has temp pacing wires set to back up -monitor hemodynamics via Mitchell bárbara. Currently on low dose epi gtt at 0.03 mcg/kg/min -check CBC, coags. Monitor chest tube output -endocrine consult pending, on insulin gtt per protocol Total critical care time for this patient with life-threatening unstable organ failure, including direct patient contact, management of life support systems, review of data including imaging and labs, and discussions with other team members and physicians at least 40 minutes so far today, excludingprocedures. documented in this [facility]03[facility]20-2025 NoteOCCUPATIONAL THERAPY [facility] Name/MRN: Marcus Thrasher ([id number]) Evaluation Date: 05/11/2024 Date of : 1940 Admission Date: 05/10/2024 5:34 AM Age: 84 y.o. Room/Bed: T1-116/T1-116 A Discharge Recommendation: IP Rehab Equipment Needed: (If pt returns home rec raised toilet seat) Assessment IMPRESSION: Function is below baseline and currently not safe for home. OOB ADL activity is requiring 1-2 person assist. UE AROM is WFL but pt has baseline deficits with sensation and FMC. Good tolerance during session. Pt is motivated. Rec IPR at discharge. Admitting Diagnosis: CABG x3 05/10 Performance Deficits /Impairments: Increased Pain, Decreased Functional Mobility, Decreased ADL status, Decreased Strength, Decreased Endurance, Decreased Balance, Decreased ROM, Decreased High Level IADLs, Decreased Sensation, Decreased Fine Motor Control, and Decreased Posture Prognosis: Good Decision Making: Medium Complexity Subjective Pt is cooperative and agreeable to OT. Yousif present with pt permission. Pain: [place] Pain Ratin = Hurts even more Pain Location: surgical chest pain Past Medical History: Past Medical History: Diagnosis Date Carotid arterial disease (HCC) Coronary artery disease Depression Diabetes mellitus (HCC) type 2 Dyslipidemia GERD (gastroesophageal reflux disease) Hypertension Malignant neoplasm of prostate (HCC) Parkinsonism (HCC) Sleep apnea pt states wears a CPAP at bedtime Past Surgical History: Past Surgical History: Procedure Laterality Date CATARACT EXTRACTION Bilateral CHOLECYSTECTOMY PILONIDAL CYST EXCISION PROSTATECTOMY TONSILLECTOMY Admission Diagnosis: Patient Active Problem List Diagnosis Date Noted CAD in [place] artery 05/10/2024 FELICIA (obstructive sleep apnea) 05/04/2024 History of motion sickness 05/04/2024 Medical Precautions: No active isolations Proper PPE donned/doffed in accordance with facility standards. Fall Risk: [place] Fall Risk Score: 50 (High Risk) Precautions/Restrictions: Braces or Orthoses: Has bilateral braces for foot drop Sternal Precautions: No lifting greater than 10 lbs. Ok for modified UE precautions using Keep Your Move in the Tube technique Chest tube x2; benavidez Overall Cognitive Status: Grossly WFL but required extra time/education on precautions to meet learning needs. Overall Orientation Status: WFL Social/Functional History Patient admitted from home. Lives With: Spouse Type of Home: single family home Home Layout: Single Level Home Home Access: Stairs to Enter with Rails (# of stairs: a few) Bathroom Shower/Tub: suction grab bars and built in bench Toilet: Standard Home Equipment: front wheeled walker, rollator, and cane Homemaking Responsibilities: Needs Assist Receives Help From: Spouse Prior Level of Function Prior Level of ADL Function: (Assist for footwear only) Prior Level of Mobility: Independent; Device: Cane Prior Level of Transfers: Independent Objective ADLs LE Dressing: Dependent, socks- unable to reach distally due to pain. Declined to don footwear/braces for session. Feeding: Supervision, after setup Upper Extremity Assessment AROM: Exceptions: UEs are grossly WFL despite reports of bilateral rotator cuff injuries Strength: Exceptions: NT formally due to precautions but at least 3+/5 throughout by functional observation. Grasp is strong. Sensation: C/o I have no feeling in my hands. It doesn't hurt but I just can't feel them. Reports this is baseline due to neuropathy. FMC: Opposition fair-poor bilaterally Coordination: WFL Tone: WFL Bed Mobility Sit to supine: Mod Assist Scooting: Dependent, x2 Person Assist, towards HOB Transfers/Mobility Sit to stand: Mod Assist Stand to sit: Mod Assist Stand step: Mod Assist, x2 Person Assist, Pt declined to wear shoes/braces Device(s) used: None AM-PAC AM-PAC Inpatient Daily Activity Raw Score: 14 ADL Inpatient [facility] G-Code Modifier: CK Plan Pt would benefit from skilled acute OT services to address Strengthening, ROM, Gait Training, Balance Training, Self-Care/ADL Training, Functional Mobility Training, Endurance Training, Safety Education and Training, Pain Management, Equipment Evaluation/Education, Neuromuscular Re-Education Training, Patient/Caregiver Training, Cognitive/Perceptual Training, and Positioning. Frequency: 5x/week for 4 weeks Barriers: Pain, Impaired balance, Lower extremity weakness, Upper extremity weakness, and Decreased endurance Safety/Education Safety Safety Devices in place: call light within reach, left in bed, gait belt, patient at risk for falls, and nurse notified Restraints: N/A Education Education Given To: patient Education Provided: OT Role, Plan of Care, Precautions, ADL Adaptive Strategies, and Transfer Training Education Method: Verbal Barriers to Learning: None Education Outcome: (more content not included)...[facility] 05-11-2024 NoteReceived referral and reviewed chart. Phase II Cardiopulmonary Rehab Referral discussed with Farhana Thrasher. Patient prefers cardiopulmonary rehab at [facility]. Given information on program at preferred location. [facility]03-19-2025 [facility] Respiratory Care Department Progress Note Spontaneous Awakening Trial Wean Screen SpO2>/=88%: Yes (05/10/24 1513) FiO2 PEEP HR <140 BPM: Yes (05/10/243) RR MAP >/= 65mmHg: Yes (05/10/241512) Arterial pH >7.30: Yes (05/10/241512) Safety Screen Spontaneous Breathing Trial (SBT - RT) : Proceed with SBT - No exclusion criteria met (05/10/241512) Spontaneous Breathing Trial Weaning Start Time: 145 (05/10/241512) Weaning Tidal Volume: 702 mL (05/10/241512) Weaning Respiratory Rate: 17 (05/10/241512) Spontaneous Minute Volume (MV): 9.83 (05/10/241512) Total RSBI: 24 (05/10/241512) Weaning Tolerance: Excellent (05/10/241512) Weaning Stop Time: 1512 (05/10/241512) Weaning Duration (min): 30 (05/10/241512) Spontaneous Breathing Trial (SBT - RT) Outcome: SBT Passed (05/10/241512) Vent Settings Vent Mode: Spontaneous (05/10/241512) Mandatory Type: Pressure Control (05/10/241512) Resp Rate (Set): 12 (05/10/241450) Vt (Set, mL): 400 mL (05/10/241450) FiO2 (%): 40 % (05/10/241512) PEEP/CPAP (cm H2O): 8 cm H20 (05/10/241512) Inspiratory Time (sec): 0.9 sec (05/10/241450) Vitals Heart Rate: 75 (05/10/241512) Resp: 18 (05/10/241512) SpO2: 100 % (05/10/241512) Suctioning/Secretions Secretion Amount: Unable to assess (05/10/24 1217) ABG results Recent Labs 05/10/24 1105 05/10/24 1347 PHART 7.352 7.313* [id number] 43.0 39.5 PO2ART 387.1* 177.8* RUZ0FTQ 23.3 19.6* [id number] Ventilator Ventilator Does this patient meet criteria for termination of mechanical ventilation Yes- Notified physician below Name of physician notified via secure chat or in person : nurse (NA if patient did not meet criteria) Comments: Thank you for involving Respiratory in the care of this patient, [facility]03-19-2025 NotePatient: Marcus Thrasher Procedure Summary Date: 05/10/24 Room / Location: [address] Operating Room Anesthesia Start: 07 Anesthesia Stop: 1216 Procedures: CORONARY ARTERY BYPASS GRAFT (Chest) ECHOCARDIOGRAM, TRANSESOPHAGEAL Diagnosis: CAD (coronary artery disease) Surgeons: Daysi Velasco MD Responsible Provider: Montana Medel MD Anesthesia Type: general ASA Status: 4 Anesthesia Type: general Vitals Value Taken Time BP 137/42 05/10/24 1318 Temp 97 05/10/24 1318 Pulse 79 05/10/24 1316 Resp 19 05/10/24 1316 SpO2 100 % 05/10/24 1316 Vitals shown include unfiled device data. Anesthesia Post Evaluation Patient location during evaluation: ICU Patient participation: complete - patient cannot participate Post-procedure mental status: sedated/intubated. Pain score: 0 Pain management: adequate Multimodal analgesia pain management approach Airway patency: patent Two or more strategies used to mitigate risk of obstructive sleep apnea Cardiovascular status: hemodynamically stable Respiratory status: acceptable, intubated, ventilator and ETT Hydration status: acceptable Comments: Patient received an inhalational anesthetic Patient exhibits three or more risk factors for PONV Patient received at aset 2 prophylactic Rx PONV anti-emetic agents of different classes preop and/or intraop Anesthesia time was 60 minutes or longer Anesthesai administered was General (inhalational or TIVA) or Neuraxial block At least one body temperature greater than 95.8F/35.5C achieved within the 30 mins immediately prior to or the 15 minutes immediately following anesthesia end time Patient was administered multimodal pain management (two or more drugs and/or interventions excluding systemic opioids) in the periopeartive period occurring at some time between 6 hours prior to anesthesia start time until discharged from PACU No notable events documented. MIPS #430 PONV Patient received an inhalational anesthetic (4554F) MIPS # 424 Perioperative Temperature Management Anesthesia time was 60 minutes or longer (4255F) MIPS #477 Multimodal Pain Management Not emergent case MIPS #404 Anesthesiology Smoking Abstinence The patient is not a current smoker (e.g. cigarette, cigar, pipe, e-cigarette/vaping/marijuana) If no stop here (XX404) I completed my handoff to the receiving clinician during which we: 1. Identified the patient 2. Identified the responsible provider 3. Reviewed the pertinent medical history 4. Discussed the surgical course 5. Reviewed intra-op anesthesia management and issues during anesthesia 6. Set expectations for post-procedure period 7. Allowed opportunity for questions and acknowledgement of understanding.[facility]03-19-2025 NotePatient: Marcus Thrasher Procedure Summary Date: 05/10/24 Room / Location: [facility] Operating Room Anesthesia Start: 722 Anesthesia Stop: 1215 Procedures: CORONARY ARTERY BYPASS GRAFT (Chest) ECHOCARDIOGRAM, TRANSESOPHAGEAL Diagnosis: CAD (coronary artery disease) Surgeons: Daysi Velasco MD Responsible Provider: Montana Medel MD Anesthesia Type: general ASA Status: 4 Anesthesia Type: general Vitals Value Taken Time BP 138/42 05/10/24 1316 Temp 97 05/10/24 1316 Pulse 77 05/10/24 1315 Resp 19 05/10/24 1315 SpO2 100 % 05/10/24 1315 Vitals shown include unfiled device data. Anesthesia Post Evaluation Patient location during evaluation: PACU Patient participation: complete - patient participated Level of consciousness: awake and alert Pain management: satisfactory to patient Airway patency: patent Dental Injury: no Cardiovascular status: acceptable, blood pressure returned to baseline and hemodynamically stable Respiratory status: acceptable and spontaneous ventilation Hydration status: euvolemic Nausea/Vomiting: controlled No notable events documented. Patient can be discharged once all PACU criteria has been met.[facility]03-19-2025 NoteCentral Venous Line: Date/Time: 05/10/2024 8:00 AM A central venous line was placed in the Procedural for the following indication(s): Sterility preparation included the following: provider hand hygiene performed prior to central venous catheter insertion, all 5 sterile barriers used (gloves, gown, cap, mask, large sterile drape) during central venous catheter insertion, antiseptic used during central venous catheter insertion and skin prep agent completely dried prior to procedure. Medical reason for not performing maximal sterile barrier technique: no The patient was placed in Trendelenburg position. Right The site was prepped with Chlorhexidine. Size: 8.5 Fr Catheter type: introducer with PA Catheter Number of Lumens: single lumen During the procedure, the following specific steps were taken: target vein identified, needle advanced into vein and blood aspirated and guidewire advanced into vein. Procedure performed using ultrasound guidance - Image permanently retained with wire or catheter in vein. Sterile gel and probe cover used in ultrasound-guided central venous catheter insertion. Intravenous verification was obtained by ultrasound. Post insertion care included: all ports aspirated, all ports flushed easily, guidewire removed intact, Biopatch applied, line sutured in place and dressing applied. During the procedure the patient experienced: patient tolerated procedure well with no complications. A non-oximetric, 7.5 FR (size) Pulmonary Artery Catheter (PAC) was placed through the Introducer CVL in the right internal jugular vein. The PAC placement was confirmed by pressure tracing changes and secured at 50 cm (depth). The patient experienced the following events during the procedure: no complications. Staffing Performed: anesthesiologist Anesthesiologist: Montana Medel [facility]03-19-2025 Note Arterial Line: Date/Time: 05/10/2024 7:30 AM An arterial line was placed Procedure performed using ultrasound guidance - Image permanently retained with wire or catheter in vein.in the Procedural for the following indication(s): continuous blood pressure monitoring. A 20 gauge (size), 1 and 3/4 inch (length), Arrow (type) catheter was placed, into the Left radial artery, secured by tape and Tegaderm. Events: patient tolerated procedure well with no complications. Additional notes: Sterile placement, use of chloraprep and sterile gloves Staffing Performed: [facility] Resident/SOFTWARE CONSULTANT: Sheldon Martin APRN [facility]103-19-2025 Note Airway Date/Time: 05/10/2024 7:30 AM Urgency: scheduled General Information and Staff Patient location during procedure: Procedural Resident/SOFTWARE CONSULTANT: TARYN Mcnair CRNA Performed: SOFTWARE CONSULTANT Indications and Patient Condition Indications for airway management: anesthesia Sedation level: Asleep Preoxygenated: yes Patient position: sniffing Mask difficulty assessment: 1 - vent by mask Final Airway Details Final airway type: endotracheal airway Successful airway: ETT Cuffed: yes Successful intubation technique: direct laryngoscopy Facilitating devices/methods: intubating stylet Endotracheal tube insertion site: oral Blade: Serrano Blade size: #2 ETT size (mm): 8.0 Cormack-Lehane Classification: grade IIa - partial view of glottis Placement verified by: chest auscultation and capnometry Measured from: lips ETT to lips (cm): 23 Number of attempts at approach: 1 Additional Comments Atraumatic placement of ETT, dent[facility] NoteH&P reviewed. The patient was examined and there are no changes to the H&P. [facility]03-19-2025 History and physical note* Daysi Velasco MD - 05/10/2024 7:08 AM EDT H&P reviewed. The patient was examined and there are no changes to the H&P. Source Note - Daysi Velasco MD - 04/25/2024 12:00 PM EST Images from the original note were not included. [facility] CARDIOVASCULAR & THORACIC SURGERY [address] [facility] [address] Dept: [phone] Dept Loc: [phone] Visit type: New Reason for Visit: Multivessel coronary artery disease evaluate for CABG Assessment: This 84-year-old gentleman has had progressive angina. A stress test was performed which was abnormal. This led to a subsequent cardiac catheterization which revealed multivessel coronary artery disease. The patient has been active but is limited by parkinsonism (manifested by an intention tremor), diabetes mellitus, and neuropathy in both lower extremities for which she uses a cane and leg braces when he leaves the house. His echo shows a normal ejection fraction without valvular pathology. His carotids showed no evidence of obstructive disease. We discussed the options for treatment, which include medication, PCI/stents, and CABG. We have opted to proceed with CABG as the most durable solution to this patient's multivessel coronary artery disease with proximal LAD lesion in the background of diabetes. While his recovery may take a bit longer due to his diabetic neuropathy, I believe his perioperative risk remains low, at approximately 2%. The overall risks benefits and alternatives were discussed with the patient and we will proceed with coronary bypass surgery which would include grafts to his LAD, the distal circumflex coronary artery, and the right coronary artery. History of Present Illness aMrcus Thrasher is a 84 y.o. male referred by Dr. Elder for CABG. Per note, pt has history of CAD, carotid artery disease, dyslipidemia, DM, and Parkinsonism. Pt sawCardiology on 03/23/24 and reported SOB and chest burning with exertion a month prior. Stress test was ordered which showed moderate size reversible perfusion defect of the lateral wall suggestive of ischemia. Echocardiogram was also completed which demonstrated mild to moderate mitral valve insufficiency. Pt then underwent a heart catheterization on 04/24/24 which demonstrated severe multivessel CAD. Pt is here now for an evaluation. Past Medical History Past Medical History: Diagnosis Date Carotid arterial disease (HCC) Coronary artery disease Diabetes mellitus (HCC) Dyslipidemia GERD (gastroesophageal reflux disease) Hypertension Malignant neoplasm of prostate (HCC) Parkinsonism (HCC) Past Surgical History Past Surgical History: Procedure Laterality Date CATARACT EXTRACTION CHOLECYSTECTOMY PROSTATECTOMY TONSILLECTOMY Family History Family History Problem Relation Name Age of Onset Stroke Mother COPD Father Coronary artery disease Father Coronary artery disease Brother Heart attack Brother Social History Social History Tobacco Use Smoking status: Never Smokeless tobacco: Never Allergies Allergies Allergen Reactions Rosuvastatin Other Reaction(s): Flu like symptoms Tape Other Reaction(s): skin tears Medications Current Outpatient Medications: atorvastatin (Lipitor) 40 MG tablet, Take 20 mg by mouth Nightly., Disp: , Rfl: Calcium Carb-Cholecalciferol (CALCIUM 500 + D3 PO), Take 1 tablet by mouth daily., Disp: , Rfl: carbidopa-levodopa (Sinemet) 25-100 MG tablet, Take 1 tablet by mouth 3 times daily., Disp: , Rfl: empagliflozin (Jardiance) 25 MG, Take 25 mg by mouth daily., Disp: , Rfl: insulin glargine (Lantus) 100 UNIT/ML injection, Inject 45 Units under the skin every morning., Disp: , Rfl: metFORMIN (Glucophage) 1000 MG tablet, Take 1,000 mg by mouth 2 times daily (with meals)., Disp: , Rfl: metoprolol succinate XL (Toprol-XL) 25 MG 24 hr tablet, Take 12.5 mg by mouth daily. Do not crush or chew., Disp: , Rfl: triamcinolone (Kenalog) 0.1 % lotion, Apply 1 Application topically Daily as needed., Disp: , Rfl: Vibegron 75 MG tablet, Take 1 tablet by mouth daily., Disp: , Rfl: Review of Systems Review of Systems Respiratory: Positive for chest tightness (intermittent chest burning on exertion) and shortness ofbreath (intermittent on exertion). All other systems reviewed and are negative. Physical Exam Vitals: There were no vitals taken for this visit. Constitutional: General: Not in acute distress. Appearance: Normal appearance. Not toxic-appearing. Ear, nose, mouth: Bilateral external ear and nose normal. Nose: Nose normal. Mouth: Appearance normal, no bleeding, moist mucus membranes Eyes: General: No scleral icterus. No discharge from bilateral eyes Extraocular Movements: Extraocular movements intact. Pupils equal and reactive bilaterally Cardiovascular: Heart: Regular rhythm. Normal heart sounds. Vascular: No carotid bruit. Edema: no edema in bilateral lower extremities Pulmonary: Effort: Pulmonary effort is normal. No respiratory distress. Breath sounds: Normal breath sounds. No wheezing. Chest wall: No tenderness. Abdominal: Appearance: Not distended Palpations: There is no abdominal tenderness, no guarding. Musculoskeletal: Bilateral upper and lower extremities: Normal range of motion, no deformity Head: Normocephalic and atraumatic. Neck: Normal range of motion and neck supple. No muscular tenderness. Skin: General: Skin is warm and dry. Coloration: Skin is not jaundiced. Neurological: General: No focal deficit present. Cranial Nerves: No obvious cranial nerve deficit. Psychiatric: Mood and Affect: Mood normal. Thought Content: Thought content normal. Patient has good judgement and insight Mental Status: Alert and oriented to place, person, and time. Labs No results found for: WBC, HGB, PLT, NA, K, CREATININE Imaging Heart Catheterization 04/24/24 Chest Xray 04/21/24 TTE 04/17/24 Stress Test 04/17/24 Carotid Ultrasound 04/17/24 Patient Care Team: PCP: Cardiology: Samson Elder MD Disclaimer INFORMED CONSENT:The nature and purpose of the proposed treatment or procedure have been discussed.The risks and benefits of the proposed treatment or procedures have been reviewed. Alternatives have been reviewed in addition to the risks and benefits of not receiving treatments or undergoing procedures. Pursuant to this discussion, the patient agrees to undergo the proposed treatment or procedure. Captured images seen in this note from are not a substitute for a comprehensive interpretation of the entire data set as reflected by the interpreting physician with regard to radiology, echocardiography, and other diagnostic images. This note may have been dictated using [employer] Edition 2.6 and/or [employer] Voice Recognition Feature. The document was proofread, however unrecognized voice recognition lye bath operator errors may be present. documented in this [facility]03-13-2025 NotePatient: Marcus Thrasher Procedure Information Date/Time: 05/10/24729 Procedures: CORONARY ARTERY BYPASS GRAFT (Chest) - 7:30 am, 5 hours ECHOCARDIOGRAM, TRANSESOPHAGEAL Location: [facility] Operating Room Surgeons: Daysi Velasco MD Relevant Problems Anesthesia Also has central sleep apnea (+) History of motion sickness (+) FELICIA (obstructive sleep apnea) Cardio (+) CAD in [place] artery Pulmonary (+) FELICIA (obstructive sleep apnea) Past Medical History: Past Medical History: No date: Carotid arterial disease (HCC) No date: Coronary artery disease No date: Depression No date: Diabetes mellitus (HCC) Comment: type 2 No date: Dyslipidemia No date: GERD (gastroesophageal reflux disease) No date: Hypertension No date: Malignant neoplasm of prostate (HCC) No date: Parkinsonism (HCC) No date: Sleep apnea Comment: pt states wears a CPAP at bedtime Past Surgical History: Past Surgical History: No date: CATARACT EXTRACTION; Bilateral No date: CHOLECYSTECTOMY No date: PILONIDAL CYST EXCISION No date: PROSTATECTOMY No date: TONSILLECTOMY Social History: TOBACCO: reports that he has quit smoking. His smoking use included cigarettes. He started smoking about 62 years ago. He has a 11 pack-year smoking history. He has never used smokeless tobacco. ETOH: reports no history of alcohol use. Social History Substance and Sexual Activity Drug Use Never Family History: Family History Problem Relation Name Age of Onset Stroke Mother COPD Father Coronary artery disease Father Coronary artery disease Brother Heart attack Brother Screening: unknown Clinical information reviewed: Tobacco Allergies Meds Med Hx Surg Hx Fam Hx Soc Hx Physical Exam Airway Mallampati: IV TM distance: >3 FB Neck ROM: full Mouth Open: normalendotracheal tube not in place Cardiovascular Dental (+) Missing, chipped Pulmonary Abdominal Anesthesia Plan patient is NPO appropriate Any family history or previous problems with anesthesia no ASA 4 general Any family history or previous problems with anesthesia no The patient is not a current smoker. Patient did not smoke on day of procedure. Anesthetic plan and risks discussed with patient. Anesthesia Chatterjee Considerations Pt reports he has a ledge in his throat where his spine is pushing on his esophagus, can cause choking at times when eating. FELICIA Screening Labs: No results found for: WBC, HGB, HCT, MCV, PLT No results found for: SODIUM, NA, POTASSIUM, K, CHLORIDE, CL, CO2, BUN, CREATININE, GLUCOSE, CALCIUM, PROT, BILIRUBINFL, ALKPHOS, AST, ALT, EGFR, GLOB No echocardiogram results found for the past 14 days No results found for this or any previous visit. Equipment Requests: Additional Equipment Requests Blood Equipment: warmer Vascular Equipment: central line kit, arterial line kit, triple transducer, Heart Setup and 2nd IV Additional Equipment: ultrasound, Transport Vent and Pacer [facility]03-13-2025 NoteComprehensive Pre Surgical History and Physical ? Name: Farhana Thrasher : 1940 (Age-84 y.o.) Date of Service: Pt seen/examined on 05/04/2024 Procedure Information Date/Time: 05/10/24 0730 Procedures: CORONARY ARTERY BYPASS GRAFT (Chest) - 7:30 am, 5 hours ECHOCARDIOGRAM, TRANSESOPHAGEAL Location: [facility] Operating Room Surgeons: Daysi Velasco MD Chief Complaint: CAD (coronary artery disease) [I25.10] ASSESSMENT/PLAN: Patient is considered low/intermediate risk for this (n) high risk procedure/surgery () with no reducible risk factors. Based on the above evaluation, the benefits of the planned procedure likely exceed the risks. The patient is medically optimized to proceed with the planned procedure without any further cardiopulmonary testing. 1) CAD (coronary artery disease) [I25.10] - MEDS: Lipitor, ASA 81mg - History of stents No. - Managed per surgery - Orders per PAT Protocol: A1c, EKG, CBC, CMP, PT/INR, PTT, T&S, PRBC- 2 units, UA, MRSA swab, CXR - METS: < 4 with stairs 2/2 SOB, last episode of CP in 01/2024 2) DM (diabetes mellitus) - Type II - Last A1c 7.8 in 03/09/24 per pt report - MEDS: Jardiance, Soliqua, metformin - Patient reports compliance to medications - Managed by PCP - Blood glucose goal is <250 DOS 3) HTN (hypertension), non-specific arrythmia - MEDS: amlodipine, metoprolol BP Readings from Last 3 Encounters: 05/04/24 (!) 146/59 04/25/24 (!) 151/68 - patient denies chest pain, SOB, dizziness, blurred vision - Managed by Dr. Elder in cardiology ([place]) 4) Parkinsonism - pt denies dx of Parkison's Disease - MEDS: carbidopa-levodopa - Managed by PCP - bilateral hand tremors 6) OAB (overactive bladder) - MEDS: Vibegron (gemtesa) - managed by PCP 7) Hx of prostate cancer - dx 2018, s/p total prostatectomy - followed by urology annually 8) FELICIA and Central Sleep Apnea - Compliant with ASV machine - Advised to bring machine DOS - Consider higher level of care (continuous pulse ox) with this patient due to FELICIA and increased risks. 9) Former Smoker - quit smoking - 11 pack year history Visit Type: Pre-Admission Testing Visit Labs Ordered: YES - PER PAT PROTOCOL Sleep Referral Ordered: NO - ALREADY DIAGNOSED WITH FELICIA AND COMPLIANT WITH CPAP Total time spent (which include face to face and non face to face encounters) : 45 minutes Toxic drug monitoring/narrow therapeutic index drug monitoring : # Drug name : metformin, insulin # Route administered : PO/SubQ # Method of monitoring : labs and EKG PAT Protocol referenced includes: 1. Anesthesia Lab Protocol Orders 2. Perioperative Cardiovascular Risk Assessment 3. Anesthesia Assessment 4. Pain Assessment and Acute Pain Service Consult (if appropriate) 5. Medical Clearance/Consult from Internal Medicine (IMS) 6. Shower/Wash Order (for designated surgeries) 7. FELICIA Screen and Sleep Clinic Referral (if appropriate) CHRONIC NARCOTIC USAGE: No Allergies: Rosuvastatin and Tape If patient has opioid allergy, is it okay to take Acetaminophen: Yes History Of Present Illness: 84 y.o. male who we are asked to see/evaluate by Daysi Velasco MD for pre-operative evaluation prior to CORONARY ARTERY BYPASS GRAFT (Chest) - 7:30 am, 5 hours ECHOCARDIOGRAM, TRANSESOPHAGEAL ? From last office visit with Daysi Velasco MD on 04/25/2024: This 84-year-old gentleman has had progressive angina. A stress test was performed which was abnormal. This led to a subsequent cardiac catheterization which revealed multivessel coronary artery disease. The patient has been active but is limited by parkinsonism (manifested by an intention tremor), diabetes mellitus, and neuropathy in both lower extremities for which she uses a cane and leg braces when he leaves the house. His echo shows a normal ejection fraction without valvular pathology. His carotids showed no evidence of obstructive disease. We discussed the options for treatment, which include medication, PCI/stents, and CABG. We have opted to proceed with CABG as the most durable solution to this patient's multivessel coronary artery disease with proximal LADlesion in the background of diabetes. While his recovery may take a bit longer due to his diabetic neuropathy, I believe his perioperative risk remains low, at approximately 2%. The overall risks benefits and alternatives were discussed with the patient and we will proceed with coronary bypass surgery which would include grafts to his LAD, the distal circumflex coronary artery, and the right coronary artery. Patient currently denies exertional chest pain, last episode was in January; he does intermittently have exertional shortness of breath, usually with stairs only. Denies dizziness, syncope, lightheadedness. No new complaints. No (more content not included)...[facility]03-04-2025 Note* Addendum Note - TARYN Martinez CNP - 04/25/2024 1:57 PM ESTAddended by: CARTER LE on: 04/25/2024 01:57 PM Modules accepted: Orders [id number] Miscellaneous Notes* Addendum Note - TARYN Martinez CNP - 04/25/2024 1:57 PM ESTAddended by: CARTER LE on: 04/25/2024 01:57 PM Modules accepted: Orders * Telephone Encounter - Leeanna Anderson - 04/25/2024 1:12 PM EST Prep for Procedure Order Request: 04/25/24 Surgeon: Dr. Velasco Surgery/Procedure: CABG, RAYMOND Diagnosis: CAD Plan Admit: yes PAT Appointment: yes Date if yes: 05/04/24 10:30 am [facility] Date of Surgery/Procedure: 05/10/24 7:30 am Medications: [] Hold as directed by CTS: [x] Per PAT protocol Medication needed prescribed: [] None [x] Nasal ointment and mouth rinse [] Other: documented in this [facility]03-04-2025 NotePrep for Procedure Order Request: 04/25/24 Surgeon: Dr. Velasco Surgery/Procedure: CABG, RAYMOND Diagnosis: CAD Plan Admit: yes PAT Appointment: yes Date if yes: 05/04/24 10:30 am [facility] Date of Surgery/Procedure: 05/10/24 7:30 am Medications: [] Hold as directed by CTS: [x] Per PAT protocol Medication needed prescribed: [] None [x] Nasal ointment and mouth rinse [] Other: [facility]03-04-2025 Telephone encounter Note* Telephone Encounter - Leeanna Anderson - 04/25/2024 1:12 PM EST Prep for Procedure Order Request: 04/25/24 Surgeon: Dr. Velasco Surgery/Procedure: CABG, RAYMOND Diagnosis: CAD Plan Admit: yes PAT Appointment: yes Date if yes: 05/04/24 10:30 am [facility] Date of Surgery/Procedure: 05/10/24 7:30 am Medications: [] Hold as directed by CTS: [x] Per PAT protocol Medication needed prescribed: [] None [x] Nasal ointment and mouth rinse [] Other: [id number] History of Present illness Narrative* Daysi Velasco MD - 04/25/2024 12:00 PM EST Images from the original note were not included. [facility] CARDIOVASCULAR & THORACIC SURGERY [address] [facility] [address] Dept: [phone] Dept Loc: [phone] Visit type: New Reason for Visit: Multivessel coronary artery disease evaluate for CABG Assessment: This 84-year-old gentleman has had progressive angina. A stress test was performed which was abnormal. This led to a subsequent cardiac catheterization which revealed multivessel coronary artery disease. The patient has been active but is limited by parkinsonism (manifested by an intention tremor), diabetes mellitus, and neuropathy in both lower extremities for which she uses a cane and leg braces when he leaves the house. His echo shows a normal ejection fraction without valvular pathology. His carotids showed no evidence of obstructive disease. We discussed the options for treatment, which include medication, PCI/stents, and CABG. We have opted to proceed with CABG as the most durable solution to this patient's multivessel coronary artery disease with proximal LAD lesion in the background of diabetes. While his recovery may take a bit longer due to his diabetic neuropathy, I believe his perioperative risk remains low, at approximately 2%. The overall risks benefits and alternatives were discussed with the patient and we will proceed with coronary bypass surgery which would include grafts to his LAD, the distal circumflex coronary artery, and the right coronary artery. History of Present Illness Marcus Thrasher is a 84 y.o. male referred by Dr. Elder for CABG. Per note, pt has history of CAD, carotid artery disease, dyslipidemia, DM, and Parkinsonism. Pt sawCardiology on 03/23/24 and reported SOB and chest burning with exertion a month prior. Stress test was ordered which showed moderate size reversible perfusion defect of the lateral wall suggestive of ischemia. Echocardiogram was also completed which demonstrated mild to moderate mitral valve insufficiency. Pt then underwent a heart catheterization on 04/24/24 which demonstrated severe multivessel CAD. Pt is here now for an evaluation. Past Medical History Past Medical History: Diagnosis Date Carotid arterial disease (HCC) Coronary artery disease Diabetes mellitus (HCC) Dyslipidemia GERD (gastroesophageal reflux disease) Hypertension Malignant neoplasm of prostate (HCC) Parkinsonism (HCC) Past Surgical History Past Surgical History: Procedure Laterality Date CATARACT EXTRACTION CHOLECYSTECTOMY PROSTATECTOMY TONSILLECTOMY Family History Family History Problem Relation Name Age of Onset Stroke Mother COPD Father Coronary artery disease Father Coronary artery disease Brother Heart attack Brother Social History Social History Tobacco Use Smoking status: Never Smokeless tobacco: Never Allergies Allergies Allergen Reactions Rosuvastatin Other Reaction(s): Flu like symptoms Tape Other Reaction(s): skin tears Medications Current Outpatient Medications: atorvastatin (Lipitor) 40 MG tablet, Take 20 mg by mouth Nightly., Disp: , Rfl: Calcium Carb-Cholecalciferol (CALCIUM 500 + D3 PO), Take 1 tablet by mouth daily., Disp: , Rfl: carbidopa-levodopa (Sinemet) 25-100 MG tablet, Take 1 tablet by mouth 3 times daily., Disp: , Rfl: empagliflozin (Jardiance) 25 MG, Take 25 mg by mouth daily., Disp: , Rfl: insulin glargine (Lantus) 100 UNIT/ML injection, Inject 45 Units under the skin every morning., Disp: , Rfl: metFORMIN (Glucophage) 1000 MG tablet, Take 1,000 mg by mouth 2 times daily (with meals)., Disp: , Rfl: metoprolol succinate XL (Toprol-XL) 25 MG 24 hr tablet, Take 12.5 mg by mouth daily. Do not crush or chew., Disp: , Rfl: triamcinolone (Kenalog) 0.1 % lotion, Apply 1 Application topically Daily as needed., Disp: , Rfl: Vibegron 75 MG tablet, Take 1 tablet by mouth daily., Disp: , Rfl: Review of Systems Review of Systems Respiratory: Positive for chest tightness (intermittent chest burning on exertion) and shortness ofbreath (intermittent on exertion). All other systems reviewed and are negative. Physical Exam Vitals: There were no vitals taken for this visit. Constitutional: General: Not in acute distress. Appearance: Normal appearance. Not toxic-appearing. Ear, nose, mouth: Bilateral external ear and nose normal. Nose: Nose normal. Mouth: Appearance normal, no bleeding, moist mucus membranes Eyes: General: No scleral icterus. No discharge from bilateral eyes Extraocular Movements: Extraocular movements intact. Pupils equal and reactive bilaterally Cardiovascular: Heart: Regular rhythm. Normal heart sounds. Vascular: No carotid bruit. Edema: no edema in bilateral lower extremities Pulmonary: Effort: Pulmonary effort is normal. No respiratory distress. Breath sounds: Normal breath sounds. No wheezing. Chest wall: No tenderness. Abdominal: Appearance: Not distended Palpations: There is no abdominal tenderness, no guarding. Musculoskeletal: Bilateral upper and lower extremities: Normal range of motion, no deformity Head: Normocephalic and atraumatic. Neck: Normal range of motion and neck supple. No muscular tenderness. Skin: General: Skin is warm and dry. Coloration: Skin is not jaundiced. Neurological: General: No focal deficit present. Cranial Nerves: No obvious cranial nerve deficit. Psychiatric: Mood and Affect: Mood normal. Thought Content: Thought content normal. Patient has good judgement and insight Mental Status: Alert and oriented to place, person, and time. Labs No results found for: WBC, HGB, PLT, NA, K, CREATININE Imaging Heart Catheterization 04/24/24 Chest Xray 04/21/24 TTE 04/17/24 Stress Test 04/17/24 Carotid Ultrasound 04/17/24 Patient Care Team: PCP: Cardiology: Samson Elder MD Disclaimer INFORMED CONSENT:The nature and purpose of the proposed treatment or procedure have been discussed.The risks and benefits of the proposed treatment or procedures have been reviewed. Alternatives have been reviewed in addition to the risks and benefits of not receiving treatments or undergoing procedures. Pursuant to this discussion, the patient agrees to undergo the proposed treatment or procedure. Captured images seen in this note from are not a substitute for a comprehensive interpretation of the entire data set as reflected by the interpreting physician with regard to radiology, echocardiography, and other diagnostic images. This note may have been dictated using [employer] Practice Edition 2.6 and/or [employer] Voice Recognition Feature. The document was proofread, however unrecognized voice recognition lye bath operator errors may be present. documented in this [facility]03-04-2025 [facility] CARDIOVASCULAR & THORACIC SURGERY [address] [facility] [address] Dept: [phone] Dept Loc: [phone] Visit type: New Reason for Visit: Multivessel coronary artery disease evaluate for CABG Assessment: This 84-year-old gentleman has had progressive angina. A stress test was performed which was abnormal. This led to a subsequent cardiac catheterization which revealed multivessel coronary artery disease. The patient has been active but is limited by parkinsonism (manifested by an intention tremor), diabetes mellitus, and neuropathy in both lower extremities for which she uses a cane and leg braces when he leaves the house. His echo shows a normal ejection fraction without valvular pathology. His carotids showed no evidence of obstructive disease. We discussed the options for treatment, which include medication, PCI/stents, and CABG. We have opted to proceed with CABG as the most durable solution to this patient's multivessel coronary artery disease with proximal LAD lesion in the background of diabetes. While his recovery may take a bit longer due to his diabetic neuropathy, I believe his perioperative risk remains low, at approximately 2%. The overall risks benefits and alternatives were discussed with the patient and we will proceed with coronary bypass surgery which would include grafts to his LAD, the distal circumflex coronary artery, and the right coronary artery. History of Present Illness Marcus Thrasher is a 84 y.o. male referred by Dr. Elder for CABG. Per note, pt has history of CAD, carotid artery disease, dyslipidemia, DM, and Parkinsonism. Pt saw Cardiology on 03/23/24 and reported SOB and chest burning with exertion a month prior. Stress test was ordered which showed moderate size reversible perfusion defect of the lateral wall suggestive of ischemia. Echocardiogram was also completed which demonstrated mild to moderate mitral valve insufficiency. Pt then underwent a heart catheterization on 04/24/24 which demonstrated severe multivessel CAD. Pt is here now for an evaluation. Past Medical History Past Medical History: Diagnosis Date Carotid arterial disease (HCC) Coronary artery disease Diabetes mellitus (HCC) Dyslipidemia GERD (gastroesophageal reflux disease) Hypertension Malignant neoplasm of prostate (HCC) Parkinsonism (HCC) Past Surgical History Past Surgical History: Procedure Laterality Date CATARACT EXTRACTION CHOLECYSTECTOMY PROSTATECTOMY TONSILLECTOMY Family History Family History Problem Relation Name Age of Onset Stroke Mother COPD Father Coronary artery disease Father Coronary artery disease Brother Heart attack Brother Social History Social History Tobacco Use Smoking status: Never Smokeless tobacco: Never Allergies Allergies Allergen Reactions Rosuvastatin Other Reaction(s): Flu like symptoms Tape Other Reaction(s): skin tears Medications Current Outpatient Medications: atorvastatin (Lipitor) 40 MG tablet, Take 20 mg by mouth Nightly., Disp: , Rfl: Calcium Carb-Cholecalciferol (CALCIUM 500 + D3 PO), Take 1 tablet by mouth daily., Disp: , Rfl: carbidopa-levodopa (Sinemet) 25-100 MG tablet, Take 1 tablet by mouth 3 times daily., Disp: , Rfl: empagliflozin (Jardiance) 25 MG, Take 25 mg by mouth daily., Disp: , Rfl: insulin glargine (Lantus) 100 UNIT/ML injection, Inject 45 Units under the skin every morning., Disp: , Rfl: metFORMIN (Glucophage) 1000 MG tablet, Take 1,000 mg by mouth 2 times daily (with meals)., Disp: , Rfl: metoprolol succinate XL (Toprol-XL) 25 MG 24 hr tablet, Take 12.5 mg by mouth daily. Do not crush or chew., Disp: , Rfl: triamcinolone (Kenalog) 0.1 % lotion, Apply 1 Application topically Daily as needed., Disp: , Rfl: Vibegron 75 MG tablet, Take 1 tablet by mouth daily., Disp: , Rfl: Review of Systems Review of Systems Respiratory: Positive for chest tightness (intermittent chest burning on exertion) and shortness of breath (intermittent on exertion). All other systems reviewed and are negative. Physical Exam Vitals: There were no vitals taken for this visit. Constitutional: General: Not in acute distress. Appearance: Normal appearance. Not toxic-appearing. Ear, nose, mouth: Bilateral external ear and nose normal. Nose: Nose normal. Mouth: Appearance normal, no bleeding, moist mucus membranes Eyes: General: No scleral icterus. No discharge from bilateral eyes Extraocular Movements: Extraocular movements intact. Pupils equal and reactive bilaterally Cardiovascular: Heart: Regular rhythm. Normal heart sounds. Vascular: No carotid bruit. Edema: no edema in bilateral lower extremities Pulmonary: Effort: Pulmonary effort is normal. No respiratory distress. Breath sounds: Normal breath sounds. No wheezing. Chest wall: No tenderness. Abdominal: Julio Cesar (more content not included)...[facility]03-03-2025 Chief complaint+Reason for visit Narrative* Chief Complaint Admit Date HEART DISEASE April 24, 2024 8:24 am Referral Order April 24, 2024 1:16 pm CABG X 3 May 16, 2024 12: 37pm STAT BILAT LEG PAIN SWELLING May 18, 2024 8:40am LT LEG PAIN June 02, 2024 11: 07am s/p CABG July 04, 2024 8:56a m S/P (06/14) July 06, 2024 9:56a m INT LABS July 06, 2024 10:34 am S/P CABG July 21, 2024 9:15a m S/P CABG August 21, 2024 9:15 am Reason for Visit Admit Date Abnormal cardiovascular stress test Will 2024 8:24am Chest pain April 24, 2024 8:24 am Atherosclerotic heart diseas [place] coronary artery without angina pectoris April 24, 2024 8:24am Coronary artery disease May 16, 2024 12:37pm Debility May 16, 2024 12: 37pm Essential (primary) hypertension April 232024 12:37pm Hyperlipidemia, unspecified May 16, 2024 12:37pm Overactive bladder May 16, 2024 12: 37pm Parkinson disease May 16, 2024 12: 37pm Type 2 diabetes mellitus with hyperglyce monster May 16, 2024 12:37pm Sleep apnea, obstructive May 16 12:37pm Diabetic polyneuropathy May 16, 2024 12:37pm Malignant neoplasm of prostate April 12:37pm Status post three vessel coronary artery bypass May 16, 2024 12:37pm Anemia July 06, 2024 9:56a m Atherosclerotic heart diseas [place] coronary artery without angina pectoris July 06, 2024 9:56am Carotid artery disease July 06, 2024 9: 56am Diastolic dysfunction July 06, 2024 9:5 6am Mixed hyperlipidemia July 06, 2024 9:56 am [facility] Work Phone: 1(187) 444-246203-03-2025 Evaluation note* Diagnosis Onset Date Resolution Status Admit Date Abnormal cardiovascular stre ss test acute April 24, 2024 8:24am Chest pain acute April 24 8:24am Atherosclerotic heart diseas [place] coronary artery without angina pectoris chronic April 24, 2024 8:24am Coronary artery disease acute 2024 12:37pm Debility acute May 16 12:37pm Essential (primary) hypertension acu te May 16, 2024 12:37pm Hyperlipidemia, unspecified acute May 16, 2024 12:37pm Overactive bladder acute May 16, 2024 12:37pm Parkinson disease acute April 232024 12:37pm Type 2 diabetes mellitus wit h hyperglycemia acute May 16, 2024 12:37pm Sleep apnea, obstructive chronic May 16, 2024 12:37pm Diabetic polyneuropathy resolved 2024 12:37pm Malignant neoplasm of prostate resol shaquille May 16, 2024 12:37pm Status post three vessel coronary artery bypass resolved April 12:37pm Anemia acute July 06, 2024 9:56am Atherosclerotic heart diseas [place] coronary artery without angina pectoris chronic July 06, 2024 9 :56am Carotid artery disease chronic Ma y 2024 9:56am Diastolic dysfunction chronic July 06, 2024 9:56am Mixed hyperlipidemia chronic July 06, 2024 9:56am [facility] Work Phone: 1(576) 622-487702-28-2025 [facility]01-30-2025 Evaluation note* Diagnosis Onset Date Resolution Status Admit Date Atherosclerotic heart diseas e of [place] coronary artery without angina pectoris chronic March 23 1:16pm Carotid artery disease chronic Ja nuary 2024 1:16pm Diabetes mellitus chronic March 23, 2024 1:16pm Diastolic dysfunction chronic Nahum uary 2024 1:16pm Mixed hyperlipidemia chronic Laron ricki 2024 1:16pm Parkinsonism chronic February 1:16pm Abnormal cardiovascular stre ss test acute April 24, 2024 8:24am Chest pain acute April 24 8:24am Atherosclerotic heart diseas [place] coronary artery without angina pectoris chronic April 24, 2024 8:24am Coronary artery disease acute 2024 12:37pm Debility acute May 16 12:37pm Diabetic polyneuropathy acute 5 12:37pm Essential (primary) hypertension acu te May 16, 2024 12:37pm Hyperlipidemia, unspecified acute May 16, 2024 12:37pm Malignant neoplasm of prostate acute May 16, 2024 12:37pm Overactive bladder acute May 16, 2024 12:37pm Parkinson disease acute April 232024 12:37pm Status post three vessel coronary artery bypass acute April 12:37pm Type 2 diabetes mellitus wit h hyperglycemia acute May 16, 2024 12:37pm Sleep apnea, obstructive chronic May 16, 2024 12:37pm [facility] Work Phone: 1(882) 358-606201-30-2025 Evaluation note* Diagnosis Onset Date Resolution Status Admit Date Atherosclerotic heart diseas [place] coronary artery without angina pectoris chronic March 23, 2024 1:16pm Carotid artery disease chronic Ja nuary 2024 1:16pm Diabetes mellitus chronic March 23, 2024 1:16pm Diastolic dysfunction chronic Nahum uary 2024 1:16pm Mixed hyperlipidemia chronic Laron ricki 2024 1:16pm Parkinsonism chronic February 1:16pm Abnormal cardiovascular stre ss test acute April 24, 2024 8:24am Chest pain acute April 24 8:24am Atherosclerotic heart diseas [place] coronary artery without angina pectoris chronic April 8:24am Coronary artery disease acute 2024 12:37pm Debility acute May 16 12:37pm Essential (primary) hypertension acute May 16, 2024 12:37pm Hyperlipidemia, unspecified acute May 16, 2024 12:37pm Overactive bladder acute May 16, 2024 12:37pm Parkinson disease acute April 232024 12:37pm Type 2 diabetes mellitus wit h hyperglycemia acute May 16, 2024 12:37pm Sleep apnea, obstructive chronic May 16, 2024 12:37pm Diabetic polyneuropathy resolved M 2024 12:37pm Malignant neoplasm of prostate resol shaquille May 16, 2024 12:37pm Status post three vessel coronary artery bypass resolved April 12:37pm Atherosclerotic heart diseas [place] coronary artery without angina pectoris chronic June 9:56am Carotid artery disease chronic Ma y 2024 9:56am Diastolic dysfunction chronic July 06, 2024 9:56am Mixed hyperlipidemia chronic July 06, 2024 9:56am [facility] Work Phone: 1(797) 492-335101-30-2025 Evaluation note* Diagnosis Onset Date Resolution Status Admit Date Atherosclerotic heart diseas [place] coronary artery without angina pectoris chronic March 23, 2024 1:16pm Carotid artery disease chronic Ja nuary 2024 1:16pm Diabetes mellitus chronic March 23, 2024 1:16pm Diastolic dysfunction chronic Nahum uary 2024 1:16pm Mixed hyperlipidemia chronic Laron ricki 2024 1:16pm Parkinsonism chronic February 1:16pm Abnormal cardiovascular stre ss test acute April 24, 2024 8:24am Chest pain acute April 24 8:24am Atherosclerotic heart diseas [place] coronary artery without angina pectoris chronic April 8:24am Coronary artery disease acute 2024 12:37pm Debility acute May 16 12:37pm Essential (primary) hypertension acute May 16, 2024 12:37pm Hyperlipidemia, unspecified acute May 16, 2024 12:37pm Overactive bladder acute May 16, 2024 12:37pm Parkinson disease acute April 232024 12:37pm Type 2 diabetes mellitus wit h hyperglycemia acute May 16, 2024 12:37pm Sleep apnea, obstructive chronic May 16, 2024 12:37pm Diabetic polyneuropathy resolved 2024 12:37pm Malignant neoplasm of prostate resol shaqu[place] May 16, 2024 12:37pm Status post three vessel coronary artery bypass resolved April 12:37pm Anemia acute July 06, 2024 9:56am Atherosclerotic heart diseas [place] coronary artery without angina pectoris chronic June 9:56am Carotid artery disease chronic Ma y 2024 9:56am Diastolic dysfunction chronic July 06, 2024 9:56am Mixed hyperlipidemia chronic July 06, 2024 9:56am [facility] Work Phone: 1(565) 896-225704-07-2022 Influenza virus A and B RNA and SARS-CoV-2 (COVID-19) N gene panel BRIAN+probe (Resp)COVID 19 RESULT: SARS-CoV-2 (Agent of COVID-19) Not Detected by RT-PCR or equivalent method. celina [id number]_Pjcat [employer] (AVNI)_EUA This test was developed and its performance characteristics determined by [facility] [place]. This test has been authorized by FDA under an Emergency Use Authorization (EUA). This test has been validated in accordance with the FDA's Guidance Document Policy for DiagnosticsTesting in Laboratories Certified to Perform High Complexity Testing under CLIA prior to Emergency use Authorization for Coronavirus Disease 2019 during the Public Health Emergency issued on April 22, 2019. Test performed by [facility], [facility] [place], [address] [place] [address]. INFLUENZA A PCR: Negative for Influenza A by RT-PCR INFLUENZA B PCR: Negative for Influenza B by RT-PCROhiohealth Grant Medical CenterComment on above: Performed By: #### [id number] #### [facility] CLIA [id number] [address] [place], [place] [address]K [address]04-07-[address]22 NoteHNO ID: [id number] Author: Yoselin Khan APRN.ROCK WORKER Service: ? Author Type: Nurse Practitioner Type: Progress Notes Filed: 05/29/2021 10:25 AM Note Text: Subjective Patient came in because he was exposed to covid a week ago and has no symptoms at this time. The history is provided by the patient. No contracts specialist was used. Review of Systems Constitutional: Negative. [...] as directed) blood sugar diagnostic (ACCU-CHEK CLARITZA) Mis test strip CHECK BLOOD SUGARS 3-4 TIMES [...] ICD10: Z20.822 - COVID WITH FLUA+B, ROUTINE Yoselin Khan APRN.HEBEROhiohealth Grant Medical Center04-07-2022 History of Present illness Narrative* Yoselin Khan APRN.ROCK WORKER - 05/29/2021 10:09 AM EDT Subjective Patient came in because he was exposed to covid a week ago and has no symptoms at this time. The history is provided by the patient. No contracts specialist was used. Review of Systems Constitutional: Negative. [...] as directed) blood sugar diagnostic (ACCU-CHEK CLARITZA) [facility] test strip CHECK BLOOD SUGARS 3-4 TIMES [...] ICD10: Z20.822 - COVID WITH FLUA+B, ROUTINE Yoselin Khan APRN.ROCK WORKER documented in this [facility]22 NoteHNO ID: [id number] Author: Alix Valle APRN.ROCK WORKER Service: ? Author Type: Nurse Practitioner Type: Progress Notes Filed: 05/23/2021 3:33 PM Note Text: This note was created using NullPointer. Subjective Farhana Thrasher is a 81 year old male who [...] as directed) blood sugar diagnostic (ACCU-CHEK CLARITZA) Mis test strip CHECK BLOOD SUGARS 3-4 TIMES [...] ASYMPTOMATIC ELECTIVE COVID-19 Sadiq Massey TEACHING PROVIDER (Physician/PA/FURNACE CHARGER) NOTE OF PERSONAL INVOLVEMENT IN CARE: I have personally seen and examined the patient and performed the medical decision-making components. I have reviewed the Advanced Practice Registered Nurse (FURNACE CHARGER) Student's documentation and verified the findings in the note as written. Any additions or changes are noted in bold/italics. Signature: Alix Valle Date: 05/23/2021 Time: 3:32 [facility]04-01-2022 Instructions* Patient Instructions* Sadiq Massey - 05/23/2021 11:46 AM EDT Beginning Home Isolation Isolation is used to separate people infected with SARS-CoV-2, the virus that causes COVID-19, frompeople who are not infected. People who are [...] to your local emergency facility: Notify the power system operator that you are seeking care for [...] expert at your local health department to determinewhen you can be around others. [facility] History of Present illness Narrative* Alix Valle APRN.ROCK WORKER - 05/23/2021 11:42 AM EDT This note was created using NullPointer. Subjective Farhana Thrasher is a 81 year old male who [...] as directed) blood sugar diagnostic (ACCU-CHEK CLARITZA) [facility] test strip CHECK BLOOD SUGARS 3-4 TIMES [...] ASYMPTOMATIC ELECTIVE COVID-19 Sadiq Massey TEACHING PROVIDER (Physician/PA/FURNACE CHARGER) NOTE OF PERSONAL INVOLVEMENT IN CARE: I have personally seen and examined the patient and performed the medical decision-making components. I have reviewed the Advanced Practice Registered Nurse (FURNACE CHARGER) Student's documentation and verified the findings in the note as written. Any additions or changes are noted in bold/italics. Signature: Alix Valle Date: 05/23/2021 Time: 3:32 PM [facility] Fall risk assessment [facility] risk assessmentWformerly [facility] Work Phone: [phone] 295-383603-23-2017 Fall risk [id number] risk assessmentFormerly [facility] Work Phone: Discharge summary Author Tiara Alston [facility] Note Date/Time September 08, 2024 1:22 pm [facility] Medical Records Department [address] [place] [id number] Emergency Department Summary 09/08/24 MR#: [id number] Acct: [id number] Name: Joaquin THRASHER Rep #:[id number] : 1940 84 From: Tiara Carlin PCP: Dr. Fredis Moon MD Status:REG E R Location: ED HPI History of Present Illness Chief Complaint: Dizziness Informant: patient Narrative Narrative: Patient is an 84-year-old male with history of type 2 diabetes mellitus, coronary artery disease (status post CABG April 2024), neuropathy, Parkinson's disease, hypertension, hyperlipidemia, normal pressure hydrocephalus as well as peripheral vertigo (follows with Dr. Krishnamurthy) presenting with abnormal blood pressure and heart rate at home as well as dizziness. Patient states he woke upfeeling dizzy. Later in the morning he went to check his blood sugar and tiltedhis head back to put his eyedrops in and then got dizzy again. He describes it as a ball in his head moving to his side. He states his vertigo always feels like this and he has to get cannula and reposition therapy with Dr. Mejias. He states his head feels full of fluff and this is typical when he has that his episodes. Start to feel little nauseous. He notes he did take his a.m. medications but before taking his medication his checked his vital signs his blood pressure is 126/98 and his heart rate was 38. He denies any associated chest pain or shortness of breath. Denies any numbness or weakness. Does feel little off balance but that is typical when he has these episodes. His notes he did look pale this morning. He is on 81 mg of aspirin daily. Came in for further evaluation given his elevated diastolic and his bradycardia. Currently does not have any dizziness and feels asymptomatic except for mild nausea and fullness in his head. [facility] Medical History Carotid artery disease Malignant neoplasm of prostate Mixed hyperlipidemia Hepatitis B GERD (gastroesophageal reflux disease) Neuropathy Essential hypertension Syncope Wide-complex tachycardia Premature ventricular contraction Premature atrial contractions Sinus bradycardia Atherosclerotic heart disease of [place] coronary artery without angina pectoris Diabetes type 2, controlled Normal pressure hydrocephalus Obesity Asymptomatic PVCs Dyslipidemia HTN (hypertension) Sleep apnea, obstructive Home Medications ?Medication ?Instructions ?Recorded ?Last Taken ?Type empagliflozin 25 mg tablet 25 mg PO DAILY 12/20/17 Unk nown History (Jardiance) carbidopa 25 mg-levodopa 100 mg 1 tab PO TID Parkinson s 01/12/20 Unknown History tablet vibegron 75 mg tablet (Gemtesa) 75 mg PO DAILY bladder 01/21/22 Unknown History aspirin 81 mg tablet,delayed 325 mg PO QDAY blood thin ner 05/16/24 Unknown History release (Adult Aspirin Regimen) atorvastatin 10 mg tablet 40 mg PO QDAY cholesterol Unknown History ferrous sulfate 325 mg (65 mg 325 mg PO QODAY iron sup plement 05/16/24 Unknown History iron) tablet (FeroSul) melatonin 3 mg tablet 3 mg PO QHS #0 tabs 06/06/24 Unknown Rx metoprolol tartrate 25 mg tablet 12.5 mg (1/2 x 25 mg) PO BID 30 06/06/24 Unknown Rx days #30 tabs insulin glargine 100 45 unit subcut QAM diabetes 07/06/24 Unknown History unit-lixisenatide 33 mcg/mL subcutaneous pen (Soliqua /) meclizine 12.5 mg tablet 12.5 mg PO TID PRN dizziness #10 09/08/24 Unknown Rx tabs Allergy/AdvReac Type Severity Reaction Status Date / Time rosuvastatin (From Crestor) AdvReac Severe Flu like Verified 09/08/24 09:59 symptoms adhesive tape AdvReac skin tears Verified 09/08/24 09:59 Family History Father COPD (chronic obstructive pulmonary disease) CAD (coronary artery disease) Mother CVA (cerebral vascular accident) Brother CAD (coronary artery disease) Myocardial infarction, Onset Age: 61 Surgical History History of prostatectomy History of cataract surgery History of cholecystectomy History of tonsillectomy Social History household members: spouse Smoking Status: Former smoker alcohol intake: never substance use type: does not use ROS ROS ED Constitutional Constitutional ED: Denies chills, fever(s) or sweats Eyes Eyes: Denies change in vision ENT ENT ED: Denies ear pain or sore throat Cardiovascular Cardiovascular: Denies chest pain or palpitations Respiratory/Chest Respiratory/Chest: Denies cough or dyspnea Gastrointestinal Gastrointestinal: Reports nausea; Denies abdominal pain or vomiting Musculoskeletal Musculoskeletal: Denies arthralgias or myalgias Integumentary Denies rash Neurologic Neurologic: Reports other Details: Describes a mild head fullness ; Denies paresthesias or weakness Hematologic/Lymphatic Hematologic/Lymphatic: Denies easy bleeding or easy bruising EXAM Physical Exam Const Vital Signs: 09/08/24 09:58 09/08/24 09:59 09/08/24 10:34 Temperature 98.1 F 98.2 F Temperature Source Oral Oral Pulse Rate 86 52 L Respiratory Rate 17 16 Blood Pressure 152/60 H 137/59 H 151/63 H Blood Pressure Mean 90 85 92 Pulse Ox 99 99 Oxygen Delivery Method Room Air Room Air 09/08/24 11:15 09/08/24 12:00 09/08/24 13:00 Temperature Temperature Source Pulse Rate 52 L 56 L 54 L Respiratory Rate 18 18 18 Blood Pressure 151/62 H 160/63 H Blood Pressure Mean 91 95 Pulse Ox 98 100 98 Oxygen Delivery Method Room Air Room Air Positive well nourished and well developed General Appearance ED: well developed and NAD HEENT Reports moist mucous membranes; Denies TM's clear HEENT Narrative: Partial cerumen impaction bilaterally. Able to visualize tympanic membranes bilaterally which appear normal. Normal ear canals otherwise. Normal external ears. Tympanic Membrane ED: Negative for TM's clear Eyes PERRL and EOMs intact bilaterally Eyes Narrative: No significant nystagmus on exam. Patient is currently asymptomatic from his dizziness. Neck supple Chest Wall inspection of chest normal and palpation of chest normal Resp normal respiratory effort and clear to auscultation bilaterally Cardio regular rhythm and no murmurs Rate: bradycardia GI normal to inspection, nondistended, normoactive bowel sounds and non-tender Palpation: Negative for tender Extremity normal to inspection Extremity Narrative: Braces on the bilateral lower legs Neuro oriented x3, CN's II-XII intact bilaterally and no sensory deficits noted Neuro Narrative: Relatively normal gait with walker. Normal coordination with no truncal ataxia. Normal finger-nose. Sensorium / Orientation: alert Sensory Exam: No sensory level loss detected Motor Exam: strength 5/5 throughout; Negative for general weakness Psych mental status grossly normal Skin no rashes or lesions noted and no wounds MDM MDM MDM Narrative Medical decision making narrative: Patient evaluated for vertigo that happened today he also had an episode of elevated diastolic blood pressure with low heart rate which prompted them to come to the emergency room. Does not a history of peripheral vertigo. Currently is asymptomatic. Is given dose of meclizine. Does have sinus bradycardia in the emergency room however this is chronic for the patient and heis also on metoprolol. His blood pressure is normal and I do not suspect excessive medication as a cause of his symptoms. Differential includes arrhythmia, peripheral vertigo, central vertigo (lower suspicion given normal neurologic exam with no truncal ataxia normal finger- noseas well as gait), electrolyte abnormality, symptomatic anemia and ACS. He has a normal neurologic exam and I do not think he needs emergent neuroimaging of the brain at this time. Cerumen cleared out from his ears with some improvement of his hearing. Workup including CBC, delta high-sensitivity troponin, BMP as well as chest x- ray obtained. Workup largely normal. Chest x-ray viewed by myself as well as radiology does not show any acute process. Patient will be discharged home withoutpatient follow-up with ENT (established Dr. Foy.) Is given return precautions. Was given a prescription for as needed meclizine as needed for symptoms. Counseled on return precautions. He feels comfortable with dischargehome. Patient and agreeable with this plan of care. Lab Data Attestation: I reviewed the patient's lab results. Labs: Laboratory Results - last 24 hr 09/08/24 09/08/24 10:53 12:25 WBC 5.6 RBC 5.26 Hgb 14.1 Hct 43.7 MCV 83.1 MCH 26.8 L MCHC 32.3 RDW Std Deviation 44.7 H RDW Coeff of Kandice 14.9 H Plt Count 189 MPV 9.2 Immature Gran % (Auto) 0.700 Neut % (Auto) 65.0 Lymph % (Auto) 17.6 L [place] % (Auto) 13.8 H Eos % (Auto) 1.8 Baso % (Auto) 1.1 H Absolute Neuts (auto) 3.6 Absolute Lymphs (auto) 0.98 Nucleated RBC % 0 Sodium 141 Potassium 4.3 Chloride 103 Carbon Dioxide 26.3 Anion Gap 12 BUN 24 H Creatinine 1.00 Estim Creat Clear Calc 61.00 Est GFR (MDRD) Non-Af 75 BUN/Creatinine Ratio 24.2 H Glucose 109 H Calcium 9.6 Troponin T High Sens 6 Troponin T Hi Sens 2 Hr < 6 Radiography Chest X-Ray - ED: 2 View, Read by ED Physician, Read by Radiologist and No AcuteDisease Diagnostic Testing: Clinical Impression(s) from Imaging Studies Chest X-Ray 09/08/24 11:15 IMPRESSION: No acute cardiopulmonary process is identified radiographically. Median sternotomy wires and vascular clips are now present and are new when compared to the prior exam. Arteriosclerotic vascular disease of the aorta. 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 Normal ST segments Compared to prior EKG on 05/12/2024 patient now has PVCs but no other significantchanges Discharge Plan Triage Chief Complaint: Dizziness ED Provider: Tiara Alston Dx/Rx/DC Orders Clinical Impression: Sinus bradycardia, Vertigo Instructions: ED Vertigo, Unspecified Prescriptions: New meclizine 12.5 mg tablet 12.5 mg PO TID PRN (Reason: dizziness) Qty: 10 0RF No Action Jardiance 25 mg tablet 25 mg PO DAILY carbidopa-levodopa 25-100 mg tablet 1 tab PO TID Soliqua 100/33 100 unit-33 mcg/mL insulin pen 45 unit subcut QAM Gemtesa 75 mg tablet 75 mg PO DAILY ferrous sulfate [FeroSul] 325 mg (65 mg iron) tablet 325 mg PO QODAY atorvastatin 10 mg tablet 40 mg PO QDAY aspirin [Adult Aspirin Regimen] 81 mg tablet,delayed release (DR/EC) 325 mg PO QDAY melatonin 3 mg Tablet 3 mg PO QHS Qty: 0 0RF metoprolol tartrate 25 mg Tablet 12.5 mg PO BID 30 Days Qty: 30 0RF Primary Care Provider: Fredis Moon Chi Referrals: Tim Foy MD [Med Staff - Active Staff] - Fredis Moon Chi, MD [Primary Care Provider] - Activity Restrictions/Additional Instructions: Your workup today was largely normal. Please follow-up outpatient with Dr. Williamson scheduled next week. You continue to have intermittent episodes of dizziness/vertigo please also follow-up with Dr. Dey. If your symptoms progress or worsen please return to the emergency room. Print Language: Yakut Disposition Disposition: Home, Self Care What to do if you have Problems For any increased pain, shortness of breath, bleeding, nausea or vomiting, chestpain, or any unexpected problems, contact your Primary Care Provider. Call [facility] ([phone]) or report to the closest Emergency Room. Call 911 if necessary. 09/08/24 1322 <Electronically signed by Tiara Alston DO> Cosigner Signature (if applicable): CC: Dr. Fredis Moon MD ~ Signed [facility] Work Phone: evaluation noteNo assessment information available [facility] Work Phone: Evaluation note* Diagnosis Close exposure to COVID-19 virus- Primary [facility] Diagnosis Close exposure to COVID-19 virus- Primary documented in this encounter [facility] note* Diagnosis Onset Date Resolution Status Carotid artery disease acute Premature atrial contractions acute Premature ventricular contraction acute Syncope acute Atherosclerotic heart diseas e of [place] coronary artery without angina pectoris chronic Essential hypertension chron ic Mixed hyperlipidemia chronic [facility] Work Phone: evaluation note* Diagnosis Onset Date Resolution Status Bilateral lower extremity edema acute Carotid artery disease acute Atherosclerotic heart diseas e of [place] coronary artery without angina pectoris chronic Essential hypertension chron ic Mixed hyperlipidemia chronic [facility] Work Phone: Evaluation note* Diagnosis 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, unspecified whether [place] or transplanted heart (HCC)- Primary Type 2 diabetes mellitus with diabetic neuropathy, without long-term current use of insulin (HCC) CAD (coronary artery disease) Coronary atherosclerosis of unspecified type of vessel, [place] or graft [facility]* Diagnosis CAD in [place] artery- Primary Preoperative clearance Unspecified pre-operative examination 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 (CODE) CAD (coronary artery disease) Coronary atherosclerosis of unspecified type of vessel, [place] or graft [facility]* Diagnosis CAD in [place] artery- Primary Preoperative clearance Unspecified pre-operative examination 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 (CODE) CAD in [place] artery CAD (coronary artery disease) Coronary atherosclerosis of unspecified type of vessel, [place] or graft S/P CABG (coronary artery bypass graft) Postsurgical aortocoronary bypass status documented [facility] this encounter [facility]* Diagnosis S/P CABG (coronary artery bypass graft)- Primary Postsurgical aortocoronary bypass status [facility] Diagnosis S/P CABG (coronary artery bypass graft)- Primary Postsurgical aortocoronary bypass status [facility]* Diagnosis CAD in [place] artery S/P CABG (coronary artery bypass graft) Postsurgical aortocoronary bypass status [facility] Discharge instructionsAdditional Instructions Your workup today was largely normal. Please follow-up outpatient with Dr. Moon as scheduled next week. You continue to have intermittent episodes of dizziness/vertigo please also follow-up with Dr. Dey. If your symptoms progress or worsen please return to the emergency room.[facility] Work Phone: Reason for visit Narrative* Auth/Cert (Routine) Specialty Diagnoses / Procedures Referred By Contac t Referred To Contact Diagnoses CAD (coronary artery disease) Procedures NE CABG W/ARTERIAL GRAFT THREE ARTERIAL GRAFTS NE ECHO TRANSESOPHAG R-T 2D W/PRB IMG ACQUISJ I&R CORONARY ARTERY BYPASS GRAFT ECHOCARDIOGRAM, TRANSESOPHAGEAL Velasco, Daysi Perry MD [address] [place] [address], [id number] [place] [address] Phone: tel: fax: Referral ID Status Reason Start Date Expiration Date Visits Re quested Visits Authorized [id number] 04/25/2024 1 1 [facility] Chief Complaint and Reason for Visit Chief Complaint SLEEP APNEA B/L DROP FOOT Chief Complaint B/L DROP FOOT Chief Complaint B/L DROP FOOT Neuralgia and neuritis, R20.0 Chief Complaint Neuralgia and neurit is, R20.0 Chief Complaint 1 Y FU DM II WITH DIABETIC POLYNEUROPATHY Reason for Visit Carotid artery disea se Premature atrial contractions Premature ventricular contraction Syncope Atherosclerotic heart disease of [place] coronary artery without angina pectoris Essential hypertension Mixed hyperlipidemia Chief Complaint Obstructive sleep ap brigid (adult) (pediatric) Chief Complaint Obstructive sleep ap brigid (adult) (pediatric) FALL Chief Complaint FALL 1 Y FU E-ORDER Reason for Visit Bilateral lower extr emity edema Carotid artery disease Atherosclerotic heart disease of [place] coronary artery without angina pectoris Essential hypertension Mixed hyperlipidemia Chief Complaint 1 Y FU E-ORDER Reason for Visit Bilateral lower extr emity edema Carotid artery disease Atherosclerotic heart disease of [place] coronary artery without angina pectoris Essential hypertension Mixed hyperlipidemia Chief Complaint Admit Date 1 Y FU March 23, 2024 1 :16pm CAD ASHD April 17, 2024 6:44am CAD ASHD April 20, 2024 12:33pm HEART DISEASE April 21, 2024 1:49pm HEART DISEASE April 24, 2024 8:24 am Referral Order April 24, 2024 1:16 pm CABG X 3 May 16, 2024 12: 37pm STAT BILAT LEG PAIN SWELLING May 18, 2024 8:40am Reason for Visit Admit Date Atherosclerotic heart diseas e of [place] coronary artery without angina pectoris March 23, 2024 1:16pm Carotid artery disease March 23 1:16pm Diabetes mellitus March 23, 2024 1 :16pm Diastolic dysfunction March 23, 2024 1:16pm Mixed hyperlipidemia March 23, 2024 1:16pm Parkinsonism March 23, 2024 1 :16pm Abnormal cardiovascular stress test 2024 8:24am Chest pain April 24, 2024 8:24 am Atherosclerotic heart diseas e of [place] coronary artery without angina pectoris April 24, 2024 8:24am Coronary artery disease May 16, 2024 12:37pm Debility May 16, 2024 12: 37pm Diabetic polyneuropathy May 16, 2024 12:37pm Essential (primary) hypertension April 232024 12:37pm Hyperlipidemia, unspecified May 16, 2024 12:37pm Malignant neoplasm of prostate April 12:37pm Overactive bladder May 16, 2024 12: 37pm Parkinson disease May 16, 2024 12: 37pm Status post three vessel coronary artery bypass May 16, 2024 12:37pm Type 2 diabetes mellitus with hyperglyce monster May 16, 2024 12:37pm Sleep apnea, obstructive May 16 12:37pm Chief Complaint Admit Date 1 Y FU March 23, 2024 1 :16pm CAD ASHD April 17, 2024 6:44am CAD ASHD April 20, 2024 12:33pm HEART DISEASE April 21, 2024 1:49pm HEART DISEASE April 24, 2024 8:24 am Referral Order April 24, 2024 1:16 pm CABG X 3 May 16, 2024 12: 37pm STAT BILAT LEG PAIN SWELLING May 18, 2024 8:40am LT LEG PAIN June 02, 2024 11: 07am Chief Complaint Admit Date 1 Y FU March 23, 2024 1 :16pm CAD ASHD April 17, 2024 6:44am CAD ASHD April 20, 2024 12:33pm HEART DISEASE April 21, 2024 1:49pm HEART DISEASE April 24, 2024 8:24 am Referral Order April 24, 2024 1:16 pm CABG X 3 May 16, 2024 12: 37pm STAT BILAT LEG PAIN SWELLING May 18, 2024 8:40am LT LEG PAIN June 02, 2024 11: 07am s/p CABG July 04, 2024 8:56a m S/P CABG July 05, 2024 8:52a m S/P (06/14) July 06, 2024 9:56a m Reason for Visit Admit Date Atherosclerotic heart diseas e of [place] coronary artery without angina pectoris March 23, 2024 1:16pm Carotid artery disease March 23 1:16pm Diabetes mellitus March 23, 2024 1 :16pm Diastolic dysfunction March 23, 2024 1:16pm Mixed hyperlipidemia March 23, 2024 1:16pm Parkinsonism March 23, 2024 1 :16pm Abnormal cardiovascular stress test Will 2024 8:24am Chest pain April 24, 2024 8:24 am Atherosclerotic heart diseas e of [place] coronary artery without angina pectoris April 24, 2024 8:24am Coronary artery disease May 16, 2024 12:37pm Debility May 16, 2024 12: 37pm Essential (primary) hypertension April 232024 12:37pm Hyperlipidemia, unspecified May 16, 2024 12:37pm Overactive bladder May 16, 2024 12: 37pm Parkinson disease May 16, 2024 12: 37pm Type 2 diabetes mellitus with hyperglyce monster May 16, 2024 12:37pm Sleep apnea, obstructive May 16 12:37pm Diabetic polyneuropathy May 16, 2024 12:37pm Malignant neoplasm of prostate April 12:37pm Status post three vessel coronary artery bypass May 16, 2024 12:37pm Atherosclerotic heart diseas e of [place] coronary artery without angina pectoris July 06, 2024 9:56am Carotid artery disease July 06, 2024 9: 56am Diastolic dysfunction July 06, 2024 9:5 6am Mixed hyperlipidemia July 06, 2024 9:56 am Chief Complaint Admit Date 1 Y FU March 23, 2024 1 :16pm CAD ASHD April 17, 2024 6:44am CAD ASHD April 20, 2024 12:33pm HEART DISEASE April 21, 2024 1:49pm HEART DISEASE April 24, 2024 8:24 am Referral Order April 24, 2024 1:16 pm CABG X 3 May 16, 2024 12: 37pm STAT BILAT LEG PAIN SWELLING May 18, 2024 8:40am LT LEG PAIN June 02, 2024 11: 07am s/p CABG July 04, 2024 8:56a m S/P CABG July 05, 2024 8:52a m S/P (06/14) July 06, 2024 9:56a m INT LABS July 06, 2024 10:34 am Reason for Visit Admit Date Atherosclerotic heart diseas e of [place] coronary artery without angina pectoris March 23, 2024 1:16pm Carotid artery disease March 23 1:16pm Diabetes mellitus March 23, 2024 1 :16pm Diastolic dysfunction March 23, 2024 1:16pm Mixed hyperlipidemia March 23, 2024 1:16pm Parkinsonism March 23, 2024 1 :16pm Abnormal cardiovascular stress test Will 2024 8:24am Chest pain April 24, 2024 8:24 am Atherosclerotic heart diseas e of [place] coronary artery without angina pectoris April 24, 2024 8:24am Coronary artery disease May 16, 2024 12:37pm Debility May 16, 2024 12: 37pm Essential (primary) hypertension April 232024 12:37pm Hyperlipidemia, unspecified May 16, 2024 12:37pm Overactive bladder May 16, 2024 12: 37pm Parkinson disease May 16, 2024 12: 37pm Type 2 diabetes mellitus with hyperglyce monster May 16, 2024 12:37pm Sleep apnea, obstructive May 16 12:37pm Diabetic polyneuropathy May 16, 2024 12:37pm Malignant neoplasm of prostate April 12:37pm Status post three vessel coronary artery bypass May 16, 2024 12:37pm Anemia July 06, 2024 9:56a m Atherosclerotic heart diseas [place] coronary artery without angina pectoris July 06, 2024 9:56am Carotid artery disease July 06, 2024 9: 56am Diastolic dysfunction July 06, 2024 9:5 6am Mixed hyperlipidemia July 06, 2024 9:56 am Chief Complaint Admit Date 1 Y FU March 23, 2024 1 :16pm CAD ASHD April 17, 2024 6:44am CAD ASHD April 20, 2024 12:33pm HEART DISEASE April 21, 2024 1:49pm HEART DISEASE April 24, 2024 8:24 am Referral Order April 24, 2024 1:16 pm CABG X 3 May 16, 2024 12: 37pm STAT BILAT LEG PAIN SWELLING May 18, 2024 8:40am LT LEG PAIN June 02, 2024 11: 07am s/p CABG July 04, 2024 8:56a m S/P (06/14) July 06, 2024 9:56a m INT LABS July 06, 2024 10:34 am S/P CABG July 07, 2024 9:15a m Chief Complaint Admit Date 1 Y FU March 23, 2024 1 :16pm CAD ASHD April 17, 2024 6:44am CAD ASHD April 20, 2024 12:33pm HEART DISEASE April 21, 2024 1:49pm HEART DISEASE April 24, 2024 8:24 am Referral Order April 24, 2024 1:16 pm CABG X 3 May 16, 2024 12: 37pm STAT BILAT LEG PAIN SWELLING May 18, 2024 8:40am LT LEG PAIN June 02, 2024 11: 07am s/p CABG July 04, 2024 8:56a m S/P (06/14) July 06, 2024 9:56a m INT LABS July 06, 2024 10:34 am Chief Complaint Admit Date CAD ASHD April 17, 2024 6:44am CAD ASHD April 20, 2024 12:33pm HEART DISEASE April 21, 2024 1:49pm HEART DISEASE April 24, 2024 8:24 am Referral Order April 24, 2024 1:16 pm CABG X 3 May 16, 2024 12: 37pm STAT BILAT LEG PAIN SWELLING May 18, 2024 8:40am LT LEG PAIN June 02, 2024 11: 07am s/p CABG July 04, 2024 8:56a m S/P (06/14) July 06, 2024 9:56a m INT LABS July 06, 2024 10:34 am S/P CABG July 21, 2024 9:15a m Reason for Visit Admit Date Abnormal cardiovascular stress test Will 2024 8:24am Chest pain April 24, 2024 8:24 am Atherosclerotic heart diseas [place] coronary artery without angina pectoris April 24, 2024 8:24am Coronary artery disease May 16, 2024 12:37pm Debility May 16, 2024 12: 37pm Essential (primary) hypertension April 232024 12:37pm Hyperlipidemia, unspecified May 16, 2024 12:37pm Overactive bladder May 16, 2024 12: 37pm Parkinson disease May 16, 2024 12: 37pm Type 2 diabetes mellitus with hyperglyce mnoster May 16, 2024 12:37pm Sleep apnea, obstructive May 16 12:37pm Diabetic polyneuropathy May 16, 2024 12:37pm Malignant neoplasm of prostate April 12:37pm Status post three vessel coronary artery bypass May 16, 2024 12:37pm Anemia July 06, 2024 9:56a m Atherosclerotic heart diseas [place] coronary artery without angina pectoris July 06, 2024 9:56am Carotid artery disease July 06, 2024 9: 56am Diastolic dysfunction July 06, 2024 9:5 6am Mixed hyperlipidemia July 06, 2024 9:56 am Chief Complaint Admit Date CABG X 3 May 16, 2024 12: 37pm STAT BILAT LEG PAIN SWELLING May 18, 2024 8:40am LT LEG PAIN June 02, 2024 11: 07am s/p CABG July 04, 2024 8:56a m S/P (06/14) July 06, 2024 9:56a m INT LABS July 06, 2024 10:34 am S/P CABG July 21, 2024 9:15a m S/P CABG August 21, 2024 9:15 am S/P CABG September 08, 2024 9:15 am DIZZINESS September 08, 2024 9:58 am Reason for Visit Admit Date Coronary artery disease May 16, 2024 12:37pm Debility May 16, 2024 12: 37pm Essential (primary) hypertension April 232024 12:37pm Hyperlipidemia, unspecified May 16, 2024 12:37pm Overactive bladder May 16, 2024 12: 37pm Parkinson disease May 16, 2024 12: 37pm Type 2 diabetes mellitus with hyperglyce monster May 16, 2024 12:37pm Sleep apnea, obstructive May 16 12:37pm Diabetic polyneuropathy May 16, 2024 12:37pm Malignant neoplasm of prostate April 12:37pm Status post three vessel coronary artery bypass May 16, 2024 12:37pm Anemia July 06, 2024 9:56a m Atherosclerotic heart diseas [place] coronary artery without angina pectoris July 06, 2024 9:56am Carotid artery disease July 06, 2024 9: 56am Diastolic dysfunction July 06, 2024 9:5 6am Mixed hyperlipidemia July 06, 2024 9:56 am Chief Complaint Admit Date CABG X 3 May 16, 2024 12: 37pm LT LEG PAIN June 02, 2024 11: 07am s/p CABG July 04, 2024 8:56a m S/P (06/14) July 06, 2024 9:56a m INT LABS July 06, 2024 10:34 am S/P CABG July 21, 2024 9:15a m S/P CABG August 21, 2024 9:15 am DIZZINESS September 08, 2024 9:58 am S/P CABG September 18, 2024 9:15 am Chief Complaint Admit Date CABG X 3 May 16, 2024 12: 37pm LT LEG PAIN June 02, 2024 11: 07am s/p CABG July 04, 2024 8:56a m S/P (06/14) July 06, 2024 9:56a m INT LABS July 06, 2024 10:34 am S/P CABG July 21, 2024 9:15a m S/P CABG August 21, 2024 9:15 am DIZZINESS September 08, 2024 9:58 am S/P CABG September 20, 2024 9:15 am Chief Complaint Admit Date CABG X 3 May 16, 2024 12: 37pm s/p CABG July 04, 2024 8:56a m S/P (06/14) July 06, 2024 9:56a m INT LABS July 06, 2024 10:34 am S/P CABG July 21, 2024 9:15a m S/P CABG August 21, 2024 9:15 am DIZZINESS September 08, 2024 9:58 am S/P CABG September 20, 2024 9:15 am S/P CABG October 02, 2024 9: 15am 3 M FU October 02, 2024 11 :28am Reason for Visit Admit Date Coronary artery disease May 16, 2024 12:37pm Debility May 16, 2024 12: 37pm Essential (primary) hypertension April 232024 12:37pm Hyperlipidemia, unspecified May 16, 2024 12:37pm Overactive bladder May 16, 2024 12: 37pm Parkinson disease May 16, 2024 12: 37pm Type 2 diabetes mellitus with hyperglyce [facility] May 16, 2024 12:37pm Sleep apnea, obstructive May 16 12:37pm Diabetic polyneuropathy May 16, 2024 12:37pm Malignant neoplasm of prostate April 12:37pm Status post three vessel coronary artery bypass May 16, 2024 12:37pm Anemia July 06, 2024 9:56a m Atherosclerotic heart diseas [place] coronary artery without angina pectoris July 06, 2024 9:56am Carotid artery disease July 06, 2024 9: 56am Diastolic dysfunction July 06, 2024 9:5 6am Mixed hyperlipidemia July 06, 2024 9:56 am Anemia October 02, 2024 11 :28am Type 2 diabetes mellitus with hyperglyce monster October 02, 2024 11:28am Atherosclerotic heart diseas [place] coronary artery without angina pectoris October 02, 2024 11:28am Carotid artery disease October 02, 2024 11:28am Diastolic dysfunction October 02, 2024 11:28am Mixed hyperlipidemia October 02, 2024 1 1:28am Family History Relationship Condition Age at Onset Recorded Date/T stacie father Chronic obstructive pulmonary disease Unk nown Coronary artery disease Unknown mother Cerebrovascular accident (CVA) Unknown brother Coronary artery disease Unknown Myocardial infarction 63 Advance Directives Advance Directive Response Recorded Date/ Time Advance Directives No January 1:22pm Living Will No January 08, 018 10:29am Power of Dowel Maker No January 08, 2018 10:29am Advance Directive Response Recorded Date/ Time Advance Directives No January 12:22pm Living Will No January 08, 018 9:29am Power of Dowel Maker No January 08, 2018 9:29am Advance Directive Response Recorded Date/ Time Name of Medical Power of Dowel Maker YOUSIF Peoples December 30, 2022 9:00pm Advance Directives No January 12:22pm Living Will Yes December 30 9:00pm Power of Dowel Maker Yes December 30, 2022 9:00pm Advance Directive Response Recorded Date/ Time Advance Directives No January 1:22pm Living Will Yes December 30 10:00pm Power of Dowel Maker Yes December 30, 2022 10:00pm Documents on File Type Date Recorded Patient Machine Precision Engraver Expl anation Advance Directives and Livin g Will 05/10/2024 6:30 AM Power of Dowel Maker 05/10/2024 6:29 AM Date Activated Date Inactivated Comments 05/10/2024 6:16 AM 05/16/2024 2:22 PM Advance Directive Response Recorded Date/ Time Advance Directives on File No April 24, 2024 9:50am Living Will Yes April 24, 2024 9:50am Do you have a Healthcare Pow er of Dowel Maker? Yes April 24, 2024 9:50am Name of Medical Power of Dowel Maker Yousif (SPOUSE) April 24, 2024 9:50am Advance Directives Yes April 24 9:50am Living Will Yes May 18, 2024 11:12am Do you have a Healthcare Pow er of Dowel Maker? Yes May 18, 2024 11:12am Name of Medical Power of Dowel Maker mamie Cooper May 18, 2024 11:12am Documents on File Type Date Recorded Patient Machine Precision Engraver Expl anation Advance Directives and Livin g Will 05/10/2024 6:30 AM Power of Dowel Maker 05/10/2024 6:29 AM Date Activated Date Inactivated Comments 05/10/2024 6:16 AM 05/16/2024 2:22 PM Advance Directive Response Recorded Date/ Time Advance Directives on File No April 24, 2024 9:50am Living Will Yes April 24, 2024 9:50am Do you have a Healthcare Pow er of Dowel Maker? Yes April 24, 2024 9:50am Name of Medical Power of Dowel Maker Yousif (SPOUSE) April 24, 2024 9:50am Advance Directives Yes April 24 9:50am Advance Directives on File Yes June 222024 9:36am Living Will Yes July 04, 2024 9 :36am Do you have a Healthcare Pow er of Dowel Maker? Yes July 04, 2024 9:36am Living Will Yes May 18, 2024 11:12am Do you have a Healthcare Pow er of Dowel Maker? Yes May 18, 2024 11:12am Name of Medical Power of Dowel Maker mamie Cooper May 18, 2024 11:12am Advance Directive Response Recorded Date/ Time Advance Directives on File Yes June 222024 9:36am Living Will Yes July 04, 2024 9 :36am Do you have a Healthcare Pow er of Dowel Maker? Yes July 04, 2024 9:36am Living Will Yes May 18, 2024 11:12am Do you have a Healthcare Pow er of Dowel Maker? Yes May 18, 2024 11:12am Name of Medical Power of Dowel Maker mamie Cooper May 18, 2024 11:12am Do you have a Healthcare Pow er of Dowel Maker? Yes September 08, 2024 10:34am Name of Medical Power of Dowel Maker yousif September 08, 2024 10:34am Advance Directives Yes April 24 9:50am Health Concerns Infection Onset Date Last Indicated Resolved Time COVID-19 Rule-Out 05/23/2021 05/23/2021 Infection Onset Date Last Indicated Resolved Time COVID-19 Rule-Out 05/29/2021 05/29/2021 Summary Purpose Additional Source Comments Goals (unrecognized section and content) Goals may be documented in a n alternate sectionGoals may be documented in an alternate sectionGoals may be documented in an alternate sectionGoals may be documented in an alternate sectionGoals may be documented in an alternate sectionGoals may be documented in an alternate sectionGoals may be documented in an alternate sectionGoals may be documented in an alternate sectionGoals may be documented in an alternate sectionGoals may be documented in an alternate sectionGoals may be documented in an alternate sectionGoals may be documented in an alternate sectionGoals may be documented in an alternate sectionGoals may be documented in an alternate sectionGoals may be documented in an alternate sectionGoals may be documented in an alternate sectionGoals may be documented in an alternate sectionGoals may be documented in an alternate sectionGoals may be documented in an alternate section Source Comments (unrecognize d section and content) In the event this informatio n is protected by the Federal Confidentiality of Alcohol and Drug Abuse Patient Records regulations: The Federal rules restrict any use of the information to criminally investigate or prosecute any alcohol or drug abuse patient.[facility] the event this information is protected by the Federal Confidentiality of Alcohol and Drug Abuse Patient Records regulations: The Federal rules restrict any use of the information to criminally investigate or prosecute any alcohol or drug abuse patient.[facility] Reason for Visit (unrecogniz ed section and content) Reason Comments Covid19 Concern asymptomatic exposur e x1 day Reason Comments COVID exposure COVID exposure Reason Comments New Patient Specialty Diagnoses / Procedures Referred By Daria t Referred To Contact Cardiothoracic Surgery Diagnoses CABG Procedures NEW PATIENT Samson lEder MD [address] [place] [address] Phone: tel: fax: Daysi Velasco MD [address] [place] [address], [address] [place] [address] Phone: tel: fax: Referral ID Status Reason Start Date Expiration Date V isits Requested Visits Authorized [id number] Pending Review 04/25/2024 04/25/2025 1 1 Reason Onset Date Comments Surgery Scheduling 04/25/2024 Reason Comments Follow-up Reason Comments Post-op Reason Onset Date Comments Orders 06/23/2024 Reason Onset Date Comments BPCI Outreach 06/27/2024 Reason Onset Date Comments [facility]PCI Outreach 07/24/2024 Care Teams (unrecognized sec tion and content) Wedger Machine Relationship Specialty Start Date End Date Fredis Moon Chi [address] [place], [place] [id number] PCP - General Gerontology 05/23/21 Wedger Machine Relationship Specialty Start Date End Date Fredis Moon Chi [address] [place], [place] [id number] PCP - General Gerontology 05/23/21 Team Status: Active Member Role Status Dates Dr. Fredis Moon MD Family Provider Active Dr. Fredis Moon MD Primary Care Provider Active Team Status: Inactive Member Role Status Dates Dr. Fredis Moon MD Primary Care Provider, Referring Provider Active Dr. Josias Turk MD Attending Provider Active Team Status: Inactive Member Role Status Dates Dr. Fredis Moon MD Primary Care Provider Active Dr. Arie Santana DPM Attending Provider, Referring Provider Active Team Status: Inactive Member Role Status Dates Dr. Fredis Moon MD Primary Care Provider Active KEVIN Aguilera Attending Provider Active Team Status: Inactive Member Role Status Dates Dr. Fredis Moon MD Primary Care Provider, Attending Provider Active Team Status: Inactive Member Role Status Dates Dr. Fredis Moon MD Primary Care Provider Active Dr. Yovanny Dempsey MD Attending Provider, Referr ing Provider Active Team Status: Inactive Member Role Status Dates Dr. Fredis Moon MD Primary Care Provi shania, Attending Provider, Referring Provider Active Team Status: Active Member Role Status Dates Dr. Fredis Moon MD Primary Care Provider Active Dr. Montana Jones MD Attending Provider, Referrin g Provider Active Team Status: Active Member Role Status Dates Dr. Fredis Moon MD Primary Care Provider Active Dr. Krish Nagel MD Attending Provider Active Team Status: Inactive Member Role Status Dates Dr. Fredis Moon MD Primary Care Provider Active Dr. Montana Jones MD Attending Provider, Referrin g Provider Active Team Status: Inactive Member Role Status Dates Dr. Fredis Moon MD Primary Care Provider Active Dr. Pamela Cramer DO Emergency Provider Active Team Status: Inactive Member Role Status Dates Dr. Fredis Moon MD Primary Care Provider Active Dr. Yovanny Dempsey MD Attending Provider Active Team Status: Inactive Member Role Status Dates Dr. Fredis Moon MD Primary Care Provider Active Dr. Pamela Cramer DO Attending Provider, Emergency Pro vider Active Team Status: Inactive Member Role Status Dates Dr. Fredis Moon MD Primary Care Provider, Referring Provider Active Mi Hernandez FOOTBALL PAD REPAIRER, FOOTBALL PAD REPAIRER-C Attending Provider Active Team Status: Inactive Member Role Status Dates Dr. Fredis Moon MD Primary Care Provider Active Mi Hernandez FOOTBALL PAD REPAIRER, FOOTBALL PAD REPAIRER-C Attending Provider, Referring P chapis Active Team Status: Active Member Role Status Dates Dr. Fredis Moon MD Primary Care Provi shania, Attending Provider, Referring Provider Active Wedger Machine Relationship Specialty Start Date End Date Kelsey Moon MD [address] [place] [phone] PCP - General Geriatric Medicine 05/10/24 Chante Hong, VITOR Registered Nurse Dressing Machine Operator Manager 05/11/24 Team Status: Active Member Role Status Dates Dr. Fredis Moon MD Primary Care Provider Active Team Status: Inactive Member Role Status Dates Dr. Fredis Moon MD Primary Care Provider Active Start: March 07, 2024 End: March 07, 2024 Dr. Fredis Moon MD Attending Provider Active Start: March 07, 2024 End: March 07, 2024 Team Status: Inactive Member Role Status Dates Dr. Fredis Moon MD Primary Care Provider Active Start: March 23, 2024 End: March 23, 2024 Dr. Fredis Moon MD Referring Provider Active Start: March 23, 2024 End: March 23, 2024 Dr. Samson Elder MD Attending Provider Active Start: March 23, 2024 End: March 23, 2024 Team Status: Inactive Member Role Status Dates Dr. Fredis Moon MD Primary Care Provider Active Start: April 17, 2024 End: April 17, 2024 Dr. Samson Elder MD Attending Provider Active Start: April 17, 2024 End: April 17, 2024 Dr. Samson Elder MD Referring Provider Active Start: April 17, 2024 End: April 17, 2024 Team Status: Active Member Role Status Dates Dr. Fredis Moon MD Primary Care Provider Active Start: April 17, 2024 Dr. Samson Elder MD Attending Provider Active Start: April 17, 2024 Team Status: Active Member Role Status Dates Dr. Fredis Moon MD Primary Care Provider Active Start: April 17, 2024 Dr. Daysi Monterroso MD Attending Provider Active S tart: April 17, 2024 Dr. Samson Elder MD Referring Provider Active Start: April 17, 2024 Team Status: Active Member Role Status Dates Dr. Fredis Moon MD Primary Care Provider Active Start: April 20, 2024 Dr. Samson Elder MD Attending Provider Active Start: April 20, 2024 Dr. Samson Elder MD Referring Provider Active Start: April 20, 2024 Dr. Samson Elder MD Other Provider Active Star t: April 20, 2024 Team Status: Active Member Role Status Dates Dr. Fredis Moon MD Primary Care Provider Active Start: April 21, 2024 Dr. Samson Elder MD Referring Provider Active Start: April 21, 2024 Dr. Samson Elder MD Other Provider Active Star t: April 21, 2024 Raven Thrasher PA, PA Attending Provider Active Start: April 21, 2024 Team Status: Inactive Member Role Status Dates Dr. Fredis Moon MD Primary Care Provider Active Start: April 24, 2024 End: April 24, 2024 Dr. Samson Elder MD Attending Provider Active Start: April 24, 2024 End: April 24, 2024 Dr. Samson Elder MD Referring Provider Active Start: April 24, 2024 End: April 24, 2024 Team Status: Active Member Role Status Dates Dr. Fredis Moon MD Primary Care Provider Active Start: April 24, 2024 Dr. Samson Elder MD Attending Provider Active Start: April 24, 2024 Team Status: Active Member Role Status Dates Dr. Fredis Moon MD Primary Care Provider Active Start: May 16, 2024 Dr. Fredis Moon MD Admit Provider Active Star t: May 16, 2024 Dr. Fredis Moon MD Attending Provider Active Start: May 16, 2024 Dr. Fredis Moon MD Referring Provider Active Start: May 16, 2024 Team Status: Inactive Member Role Status Dates Dr. Fredis Moon MD Primary Care Provider Active Start: May 18, 2024 End: May 18, 2024 Dr. Fredis Moon MD Attending Provider Active Start: May 18, 2024 End: May 18, 2024 Dr. Fredis Moon MD Referring Provider Active Start: May 18, 2024 End: May 18, 2024 Team Status: Active Member Role Status Dates Dr. Fredis Moon MD Primary Care Provider Active Start: May 18, 2024 Dr. Daysi Monterroso MD Attending Provider Active S tart: May 18, 2024 Wedger Machine Relationship Specialty [place] [address] [place] [address] [phone] PCP - General Geriatric Medicine 05/10/24 Chante Hong, VITOR Registered Nurse Dressing Machine Operator Manager 05/11/24 Team Status: Active Member Role Status Dates Dr. Fredis Moon MD Primary Care Provider Active Start: May 18, 2024 Dr. Fredis Moon MD Referring Provider Active Start: May 18, 2024 Dr. Daysi Monterroso MD Attending Provider Active S tart: May 18, 2024 Team Status: Inactive Member Role Status Dates Dr. Fredis Moon MD Primary Care Provider Active Start: June 02, 2024 End: June 02, 2024 Dr. Fredis Moon MD Attending Provider Active Start: June 02, 2024 End: June 02, 2024 Dr. Fredis Moon MD Referring Provider Active Start: June 02, 2024 End: June 02, 2024 Team Status: Active Member Role Status Dates Dr. Fredis Moon MD Primary Care Provider Active Start: June 02, 2024 Dr. Fredis Moon MD Referring Provider Active Start: June 02, 2024 Dr. Daysi Monterroso MD Attending Provider Active S tart: June 02, 2024 Wedger Machine Relationship Specialty Start Date End Date Kelsey Moon MD [address] [facility] [address] [place] [phone] PCP - General Geriatric Medicine 05/10/24 Chante Hong, RN Registered Nurse Dressing Machine Operator Manager 05/11/24 Lilliana Reed I., OPERATING TABLE ASSEMBLER Senior Research Scientist Licensed Clinical Senior Research Scientist 06/08/24 Wedger Machine Relationship Specialty Start Date End Date Kelsey Moon MD [address] [facility] [address] [place] [phone] PCP - General Geriatric Medicine 05/10/24 Chante Hong, RN Registered Nurse Dressing Machine Operator Manager 05/11/24 Lilliana Reed I., OPERATING TABLE ASSEMBLER Senior Research Scientist Licensed Clinical Senior Research Scientist 06/08/24 Team Status: Inactive Member Role Status Dates Dr. Fredis Moon MD Primary Care Provider Active Start: May 16, 2024 End: June 14, 2024 Dr. Fredis Moon MD Admit Provider Active Star t: May 16, 2024 End: June 14, 2024 Dr. Fredis Moon MD Attending Provider Active Start: May 16, 2024 End: June 14, 2024 Dr. Fredis Moon MD Referring Provider Active Start: May 16, 2024 End: June 14, 2024 Team Status: Active Member Role Status Dates Dr. Fredis Moon MD Primary Care Provider Active Start: July 04, 2024 Dr. Daysi Velasco MD Attending Provider Active Start: July 04, 2024 Dr. Daysi Velasco MD Referring Provider Active Start: July 04, 2024 Team Status: Active Member Role Status Dates Dr. Fredis Moon MD Primary Care Provider Active Start: July 05, 2024 Dr. Daysi Velasco MD Attending Provider Active Start: July 05, 2024 Dr. Daysi Velasco MD Referring Provider Active Start: July 05, 2024 Team Status: Inactive Member Role Status Dates Dr. Fredis Moon MD Primary Care Provider Active Start: July 06, 2024 End: July 06, 2024 Dr. Fredis Moon MD Referring Provider Active Start: July 06, 2024 End: July 06, 2024 Mi Hernandez FOOTBALL PAD REPAIRER, FOOTBALL PAD REPAIRER-C Attending Provider Active Start: July 06, 2024 End: July 06, 2024 Team Status: Active Member Role Status Dates Dr. Fredis Moon MD Primary Care Provider Active Start: July 06, 2024 Dr. Samson Elder MD Attending Provider Active Start: July 06, 2024 Dr. Samson Elder MD Referring Provider Active Start: July 06, 2024 Mi Hernandez FOOTBALL PAD REPAIRER, FOOTBALL PAD REPAIRER-C Other Provider Active Sta rt: July 06, 2024 Wedger Machine Relationship Specialty [place] [address] [place] [phone] PCP - General Geriatric Medicine 05/10/24 Chante Hong, VITOR Registered Nurse Dressing Machine Operator Manager 05/11/24 Lilliana Reed I. [facility] Senior Research Scientist Licensed Clinical Senior Research Scientist 06/08/24 Team Status: Inactive Member Role Status Dates Dr. Fredis Moon MD Primary Care Provider Active Start: July 04, 2024 End: July 04, 2024 Dr. Daysi Velasco MD Attending Provider Active Start: July 04, 2024 End: July 04, 2024 Dr. Daysi Velasco MD Referring Provider Active Start: July 04, 2024 End: July 04, 2024 Team Status: Active Member Role Status Dates Dr. Fredis Moon MD Primary Care Provider Active Start: July 07, 2024 Dr. Daysi Velasco MD Attending Provider Active Start: July 07, 2024 Dr. Daysi Velasco MD Referring Provider Active Start: July 07, 2024 Team Status: Inactive Member Role Status Dates Dr. Fredis Moon MD Primary Care Provider Active Start: July 06, 2024 End: July 06, 2024 Dr. Samson Elder MD Attending Provider Active Start: July 06, 2024 End: July 06, 2024 Dr. Samson Elder MD Referring Provider Active Start: July 06, 2024 End: July 06, 2024 Mi Hernandez FOOTBALL PAD REPAIRER, FOOTBALL PAD REPAIRER-C Other Provider Active Sta rt: July 06, 2024 End: July 06, 2024 Team Status: Inactive Member Role Status Dates Dr. Fredis Moon MD Primary Care Provider Active Start: July 21, 2024 End: July 22, 2024 Dr. Daysi Velasco MD Attending Provider Active Start: July 21, 2024 End: July 22, 2024 Dr. Daysi Velasco MD Referring Provider Active Start: July 21, 2024 End: July 22, 2024 Wedger Machine Relationship Specialty Start Date End Date Kelsey Moon MD [address] [facility] [address] [place] [phone] PCP - General Geriatric Medicine 05/10/24 Chante Hong RN Registered Nurse Dressing Machine Operator Manager 05/11/24 Lilliana Reed I., [facility] Senior Research Scientist Licensed Clinical Senior Research Scientist 06/08/24 Wedger Machine Relationship Specialty Start Date End Date Kelsey Moon MD [address] [facility] [address] [place] [phone] PCP - General Geriatric Medicine 05/10/24 Chante Hong RN Registered Nurse Dressing Machine Operator Manager 05/11/24 Lilliana Reed I., OPERATING TABLE ASSEMBLER Senior Research Scientist Licensed Clinical Senior Research Scientist 06/08/24 08/11/24 Team Status: Active Member Role/Relationship Status Dates Dr. Fredis Moon MD Primary Care Provider Active Team Status: Inactive Member Role/Relationship Status Dates Dr. Fredis Moon MD Primary Care Provider Active Start: April 24, 2024 End: April 24, 2024 Dr. Samson Elder MD Attending Provider Active Start: April 24, 2024 End: April 24, 2024 Dr. Samson Elder MD Referring Provider Active Start: April 24, 2024 End: April 24, 2024 Team Status: Active Member Role/Relationship Status Dates Dr. Fredis Moon MD Primary Care Provider Active Start: April 24, 2024 Dr. Samson Elder MD Attending Provider Active Start: April 24, 2024 Team Status: Inactive Member Role/Relationship Status Dates Dr. Fredis Moon MD Primary Care Provider Active Start: May 16, 2024 End: June 14, 2024 Dr. Fredis Moon MD Admit Provider Active Star t: May 16, 2024 End: June 14, 2024 Dr. Fredis Moon MD Attending Provider Active Start: May 16, 2024 End: June 14, 2024 Dr. Fredis Moon MD Referring Provider Active Start: May 16, 2024 End: June 14, 2024 Team Status: Inactive Member Role/Relationship Status Dates Dr. Fredis Moon MD Primary Care Provider Active Start: May 18, 2024 End: May 18, 2024 Dr. Fredis Moon MD Attending Provider Active Start: May 18, 2024 End: May 18, 2024 Dr. Fredis Moon MD Referring Provider Active Start: May 18, 2024 End: May 18, 2024 Team Status: Active Member Role/Relationship Status Dates Dr. Fredis Moon MD Primary Care Provider Active Start: May 18, 2024 Dr. Fredis Moon MD Referring Provider Active Start: May 18, 2024 Dr. Daysi Monterroso MD Attending Provider Active S tart: May 18, 2024 Team Status: Inactive Member Role/Relationship Status Dates Dr. Fredis Moon MD Primary Care Provider Active Start: June 02, 2024 End: June 02, 2024 Dr. Fredis Moon MD Attending Provider Active Start: June 02, 2024 End: June 02, 2024 Dr. Fredis Moon MD Referring Provider Active Start: June 02, 2024 End: June 02, 2024 Team Status: Active Member Role/Relationship Status Dates Dr. Fredis Moon MD Primary Care Provider Active Start: June 02, 2024 Dr. Fredis Moon MD Referring Provider Active Start: June 02, 2024 Dr. Daysi Monterroso MD Attending Provider Active S tart: June 02, 2024 Team Status: Inactive Member Role/Relationship Status Dates Dr. Fredis Moon MD Primary Care Provider Active Start: July 04, 2024 End: July 04, 2024 Dr. Daysi Velasco MD Attending Provider Active Start: July 04, 2024 End: July 04, 2024 Dr. Daysi Velasco MD Referring Provider Active Start: July 04, 2024 End: July 04, 2024 Team Status: Inactive Member Role/Relationship Status Dates Dr. Fredis Moon MD Primary Care Provider Active Start: July 06, 2024 End: July 06, 2024 Dr. Fredis Moon MD Referring Provider Active Start: July 06, 2024 End: July 06, 2024 Mi Hernandez FOOTBALL PAD REPAIRER, FOOTBALL PAD REPAIRER-C Attending Provider Active Start: July 06, 2024 End: July 06, 2024 Team Status: Inactive Member Role/Relationship Status Dates Dr. Fredis Moon MD Primary Care Provider Active Start: July 06, 2024 End: July 06, 2024 Dr. Samson Elder MD Attending Provider Active Start: July 06, 2024 End: July 06, 2024 Dr. Samson Elder MD Referring Provider Active Start: July 06, 2024 End: July 06, 2024 Mi Hernandez FOOTBALL PAD REPAIRER, FOOTBALL PAD REPAIRER-C Other Provider Active Sta rt: July 06, 2024 End: July 06, 2024 Team Status: Inactive Member Role/Relationship Status Dates Dr. Fredis Moon MD Primary Care Provider Active Start: July 21, 2024 End: July 22, 2024 Dr. Daysi Velasco MD Attending Provider Active Start: July 21, 2024 End: July 22, 2024 Dr. Daysi Velasco MD Referring Provider Active Start: July 21, 2024 End: July 22, 2024 Team Status: Inactive Member Role/Relationship Status Dates Dr. Fredis Moon MD Primary Care Provider Active Start: August 21, 2024 End: August 21, 2024 Dr. Daysi Velasco MD Attending Provider Active Start: August 21, 2024 End: August 21, 2024 Dr. Daysi Velasco MD Referring Provider Active Start: August 21, 2024 End: August 21, 2024 Team Status: Inactive Member Role/Relationship Status Dates Dr. Fredis Moon MD Primary Care Provider Active Start: May 16, 2024 End: June 14, 2024 Dr. Fredis Moon MD Admit Provider Active Star t: May 16, 2024 End: June 14, 2024 Dr. Fredis Moon MD Attending Provider Active Start: May 16, 2024 End: June 14, 2024 Dr. Fredis Moon MD Referring Provider Active Start: May 16, 2024 End: June 14, 2024 Team Status: Inactive Member Role/Relationship Status Dates Dr. Fredis Moon MD Primary Care Provider Active Start: May 18, 2024 End: May 18, 2024 Dr. Fredis Moon MD Attending Provider Active Start: May 18, 2024 End: May 18, 2024 Dr. Fredis Moon MD Referring Provider Active Start: May 18, 2024 End: May 18, 2024 Team Status: Active Member Role/Relationship Status Dates Dr. Freids Moon MD Primary Care Provider Active Start: May 18, 2024 Dr. Fredis Moon MD Referring Provider Active Start: May 18, 2024 Dr. Daysi Monterroso MD Attending Provider Active S tart: May 18, 2024 Team Status: Inactive Member Role/Relationship Status Dates Dr. Fredis Moon MD Primary Care Provider Active Start: June 02, 2024 End: June 02, 2024 Dr. Fredis Moon MD Attending Provider Active Start: June 02, 2024 End: June 02, 2024 Dr. Fredis Moon MD Referring Provider Active Start: June 02, 2024 End: June 02, 2024 Team Status: Active Member Role/Relationship Status Dates Dr. Fredis Moon MD Primary Care Provider Active Start: June 02, 2024 Dr. Fredis Moon MD Referring Provider Active Start: June 02, 2024 Dr. Daysi Monterroso MD Attending Provider Active S tart: June 02, 2024 Team Status: Inactive Member Role/Relationship Status Dates Dr. Fredis Moon MD Primary Care Provider Active Start: July 04, 2024 End: July 04, 2024 Dr. Daysi Velasco MD Attending Provider Active Start: July 04, 2024 End: July 04, 2024 Dr. Daysi Velasco MD Referring Provider Active Start: July 04, 2024 End: July 04, 2024 Team Status: Inactive Member Role/Relationship Status Dates Dr. Fredis Moon MD Primary Care Provider Active Start: July 06, 2024 End: July 06, 2024 Dr. Fredis Moon MD Referring Provider Active Start: July 06, 2024 End: July 06, 2024 Mi Hernandez FOOTBALL PAD REPAIRER, FOOTBALL PAD REPAIRER-C Attending Provider Active Start: July 06, 2024 End: July 06, 2024 Team Status: Inactive Member Role/Relationship Status Dates Dr. Fredis Moon MD Primary Care Provider Active Start: July 06, 2024 End: July 06, 2024 Dr. Samson Elder MD Attending Provider Active Start: July 06, 2024 End: July 06, 2024 Dr. Samson Elder MD Referring Provider Active Start: July 06, 2024 End: July 06, 2024 Mi Hernandez NP, FOOTBALL PAD REPAIRER-C Other Provider Active Sta rt: July 06, 2024 End: July 06, 2024 Team Status: Inactive Member Role/Relationship Status Dates Dr. Fredis Moon MD Primary Care Provider Active Start: July 21, 2024 End: July 22, 2024 Dr. Daysi Velasco MD Attending Provider Active Start: July 21, 2024 End: July 22, 2024 Dr. Daysi Velasco MD Referring Provider Active Start: July 21, 2024 End: July 22, 2024 Team Status: Inactive Member Role/Relationship Status Dates Dr. Fredis Moon MD Primary Care Provider Active Start: August 21, 2024 End: August 21, 2024 Dr. Daysi Velasco MD Attending Provider Active Start: August 21, 2024 End: August 21, 2024 Dr. Daysi Velasco MD Referring Provider Active Start: August 21, 2024 End: August 21, 2024 Team Status: Active Member Role/Relationship Status Dates Dr. Fredis Moon MD Primary Care Provider Active Start: September 07, 2024 Dr. Fredis Moon MD Attending Provider Active Start: September 07, 2024 Dr. Fredis Moon MD Referring Provider Active Start: September 07, 2024 Team Status: Active Member Role/Relationship Status Dates Dr. Fredis Moon MD Primary Care Provider Active Start: September 08, 2024 Dr. Daysi Velasco MD Attending Provider Active Start: September 08, 2024 Dr. Daysi Velasco MD Referring Provider Active Start: September 08, 2024 Team Status: Inactive Member Role/Relationship Status Dates Dr. Fredis Moon MD Primary Care Provider Active Start: September 08, 2024 End: September 08, 2024 Dr. Tiara Alston DO Emergency Provider Active Start: September 08, 2024 End: September 08, 2024 Team Status: Inactive Member Role/Relationship Status Dates Dr. Fredis Moon MD Primary Care Provider Active Start: June 02, 2024 End: June 02, 2024 Dr. Fredis Moon MD Attending Provider Active Start: June 02, 2024 End: June 02, 2024 Dr. Fredis Moon MD Referring Provider Active Start: June 02, 2024 End: June 02, 2024 Team Status: Active Member Role/Relationship Status Dates Dr. Fredis Moon MD Primary Care Provider Active Start: June 02, 2024 Dr. Fredis Moon MD Referring Provider Active Start: June 02, 2024 Dr. Daysi Monterroso MD Attending Provider Active S tart: June 02, 2024 Team Status: Inactive Member Role/Relationship Status Dates Dr. Fredis Moon MD Primary Care Provider Active Start: July 04, 2024 End: July 04, 2024 Dr. Daysi Velasco MD Attending Provider Active Start: July 04, 2024 End: July 04, 2024 Dr. Daysi Velasco MD Referring Provider Active Start: July 04, 2024 End: July 04, 2024 Team Status: Inactive Member Role/Relationship Status Dates Dr. Fredis Moon MD Primary Care Provider Active Start: July 06, 2024 End: July 06, 2024 Dr. Fredis Moon MD Referring Provider Active Start: July 06, 2024 End: July 06, 2024 Mi Hernandez FOOTBALL PAD REPAIRER, FOOTBALL PAD REPAIRER-C Attending Provider Active Start: July 06, 2024 End: July 06, 2024 Team Status: Inactive Member Role/Relationship Status Dates Dr. Fredis Moon MD Primary Care Provider Active Start: July 06, 2024 End: July 06, 2024 Dr. Samson Elder MD Attending Provider Active Start: July 06, 2024 End: July 06, 2024 Dr. Samson Elder MD Referring Provider Active Start: July 06, 2024 End: July 06, 2024 Mi Hernandez FOOTBALL PAD REPAIRER, FOOTBALL PAD REPAIRER-C Other Provider Active Sta rt: July 06, 2024 End: July 06, 2024 Team Status: Inactive Member Role/Relationship Status Dates Dr. Fredis Moon MD Primary Care Provider Active Start: July 21, 2024 End: July 22, 2024 Dr. Daysi Velasco MD Attending Provider Active Start: July 21, 2024 End: July 22, 2024 Dr. Daysi Velasco MD Referring Provider Active Start: July 21, 2024 End: July 22, 2024 Team Status: Inactive Member Role/Relationship Status Dates Dr. Fredis Moon MD Primary Care Provider Active Start: August 21, 2024 End: August 21, 2024 Dr. Daysi Velasco MD Attending Provider Active Start: August 21, 2024 End: August 21, 2024 Dr. Daysi Velasco MD Referring Provider Active Start: August 21, 2024 End: August 21, 2024 Team Status: Inactive Member Role/Relationship Status Dates Dr. Fredis Moon MD Primary Care Provider Active Start: September 07, 2024 End: September 07, 2024 Dr. Fredis Moon MD Attending Provider Active Start: September 07, 2024 End: September 07, 2024 Dr. Fredis Moon MD Referring Provider Active Start: September 07, 2024 End: September 07, 2024 Team Status: Inactive Member Role/Relationship Status Dates Dr. Fredis Moon MD Primary Care Provider Active Start: September 08, 2024 End: September 08, 2024 Dr. Tiara Alston DO Attending Provider Active Start: September 08, 2024 End: September 08, 2024 Dr. Tiara Alstno DO Emergency Provider Active Start: September 08, 2024 End: September 08, 2024 Team Status: Inactive Member Role/Relationship Status Dates Dr. Fredis Moon MD Primary Care Provider Active Start: September 12, 2024 End: September 12, 2024 Dr. Fredis Moon MD Attending Provider Active Start: September 12, 2024 End: September 12, 2024 Dr. Fredis Moon MD Referring Provider Active Start: September 12, 2024 End: September 12, 2024 Team Status: Active Member Role/Relationship Status Dates Dr. Fredis Moon MD Primary Care Provider Active Start: September 18, 2024 Dr. Daysi Velasco MD Attending Provider Active Start: September 18, 2024 Dr. Daysi Velasco MD Referring Provider Active Start: September 18, 2024 Team Status: Inactive Member Role/Relationship Status Dates Dr. Fredis Moon MD Primary Care Provider Active Start: September 20, 2024 End: September 21, 2024 Dr. Daysi Velasco MD Attending Provider Active Start: September 20, 2024 End: September 21, 2024 Dr. Daysi Velasco MD Referring Provider Active Start: September 20, 2024 End: September 21, 2024 Team Status: Inactive Member Role/Relationship Status Dates Dr. Fredis Moon MD Primary Care Provider Active Start: July 04, 2024 End: July 04, 2024 Dr. Daysi Velasco MD Attending Provider Active Start: July 04, 2024 End: July 04, 2024 Dr. Daysi Velasco MD Referring Provider Active Start: July 04, 2024 End: July 04, 2024 Team Status: Inactive Member Role/Relationship Status Dates Dr. Fredis Moon MD Primary Care Provider Active Start: July 06, 2024 End: July 06, 2024 Dr. Fredis Moon MD Referring Provider Active Start: July 06, 2024 End: July 06, 2024 Mi Hernandez NP, FOOTBALL PAD REPAIRER-C Attending Provider Active Start: July 06, 2024 End: July 06, 2024 Team Status: Inactive Member Role/Relationship Status Dates Dr. Fredis Moon MD Primary Care Provider Active Start: July 06, 2024 End: July 06, 2024 Dr. Samson Elder MD Attending Provider Active Start: July 06, 2024 End: July 06, 2024 Dr. Samson Elder MD Referring Provider Active Start: July 06, 2024 End: July 06, 2024 Mi Hernandez FOOTBALL PAD REPAIRER, FOOTBALL PAD REPAIRER-C Other Provider Active Sta rt: July 06, 2024 End: July 06, 2024 Team Status: Inactive Member Role/Relationship Status Dates Dr. Fredis Moon MD Primary Care Provider Active Start: July 21, 2024 End: July 22, 2024 Dr. Daysi Velasco MD Attending Provider Active Start: July 21, 2024 End: July 22, 2024 Dr. Daysi Velasco MD Referring Provider Active Start: July 21, 2024 End: July 22, 2024 Team Status: Inactive Member Role/Relationship Status Dates Dr. Fredis Moon MD Primary Care Provider Active Start: August 21, 2024 End: August 21, 2024 Dr. Daysi Velasco MD Attending Provider Active Start: August 21, 2024 End: August 21, 2024 Dr. Daysi Velasco MD Referring Provider Active Start: August 21, 2024 End: August 21, 2024 Team Status: Inactive Member Role/Relationship Status Dates Dr. Fredis Moon MD Primary Care Provider Active Start: September 07, 2024 End: September 07, 2024 Dr. Fredis Moon MD Attending Provider Active Start: September 07, 2024 End: September 07, 2024 Dr. Fredis Moon MD Referring Provider Active Start: September 07, 2024 End: September 07, 2024 Team Status: Inactive Member Role/Relationship Status Dates Dr. Fredis Moon MD Primary Care Provider Active Start: September 08, 2024 End: September 08, 2024 Dr. Tiara Alston DO Attending Provider Active Start: September 08, 2024 End: September 08, 2024 Dr. Tiara Alston DO Emergency Provider Active Start: September 08, 2024 End: September 08, 2024 Team Status: Inactive Member Role/Relationship Status Dates Dr. Fredis Moon MD Primary Care Provider Active Start: September 12, 2024 End: September 12, 2024 Dr. Fredis Moon MD Attending Provider Active Start: September 12, 2024 End: September 12, 2024 Dr. Fredis Moon MD Referring Provider Active Start: September 12, 2024 End: September 12, 2024 Team Status: Inactive Member Role/Relationship Status Dates Dr. Fredis Moon MD Primary Care Provider Active Start: September 20, 2024 End: September 21, 2024 Dr. Daysi Velasco MD Attending Provider Active Start: September 20, 2024 End: September 21, 2024 Dr. Daysi Velasco MD Referring Provider Active Start: September 20, 2024 End: September 21, 2024 Team Status: Active Member Role/Relationship Status Dates Dr. Fredis Moon MD Primary Care Provider Active Start: October 02, 2024 Dr. Daysi Velasco MD Attending Provider Active Start: October 02, 2024 Dr. Daysi Velasco MD Referring Provider Active Start: October 02, 2024 Team Status: Inactive Member Role/Relationship Status Dates Dr. Fredis Moon MD Primary Care Provider Active Start: October 02, 2024 End: October 02, 2024 Dr. Fredis Moon MD Referring Provider Active Start: October 02, 2024 End: October 02, 2024 Wagner Regalado FOOTBALL PAD REPAIRER, FOOTBALL PAD REPAIRER-C Attending Provider Active S tart: October 02, 2024 End: October 02, 2024 (unrecognized sect ion and content) No Status Records FoundNo Status Records FoundNo Status Records Found INFORMATION SOURCE (unrecogn ized section and content) DATE CREATED AUTHOR 05/31/2021 [facility] DATE CREATED AUTHOR AUTHOR'S ORGANIZ ATION 08/14/2024 [facility] DATE CREATED AUTHOR AUTHOR'S ORGANIZ ATION 09/29/2024 [facility] Scheduled Active and Recently Administ ered Medications (unrecognized section and content) Medication Order 05/14/2024 05/15/2024 05/16/2024 acetaminophen (Tylenol) tablet 1,000 mg 1,000 mg, Oral, Every 8 hours, First dose on Wed05/10/24 at 1400, Recovery [facility] On Unit 0516 (Given - Provider: Jos Haas RN)1412 (Given - Provider: Birdie Kang RN)2109 (Given - Provider: Jos Haas RN) 0557 (Given - Provider: Cedric Kang RN)1451 (Given - Provider: Clara Romero RN)2100 (Given - Provider: Radha Farley RN) 0603 (Given - Provider: Radha Farley RN)1400 (Canceled Entry - Provider: Automatic Discharge Provider - Comment: Automatically canceled at discontinue of medication order) aspirin chewable tablet 325 mg 325 mg, Oral, Daily, First dose on Wed05/12/24 at 0900 0834 (Given - Provider: Birdie Kang RN) 0842 (Given - Provider: Clara Romero RN) 0846 (Given - Provider: Clara Romero RN) atorvastatin (Lipitor) tablet 40 mg 40 mg, Oral, Nightly, First dose on Wed05/11/24 at 2100 0 (Given - Provider: Jos Haas RN) 2044 (Given - Provider: Radha Farley RN) carbidopa-levodopa (Sinemet) 25-100 MG per tablet 1 tablet 1 tablet, Oral, 3 times daily, First dose (after last modification) on Wed05/11/24 at 0900 0834 (Given - Provider: Birdie Kang RN)1412 (Given - Provider: Birdie Kang RN)2115 (Given - Provider: Jos Haas RN) 0842 (Given - Provider: Clara Romero RN)145 (Given - Provider: Clara Romero RN)2207 (Given - Provider: Radha Farley RN) 0846 (Given - Provider: Clara Romero RN)1400 (Canceled Entry - Provider: Automatic Discharge Provider - Comment: Automatically canceled at discontinue of medication order) chlorhexidine (Hibiclens) 4 % solution Topical, Daily, First dose on Wed05/11/24 at 1400, Recovery & On Unit 1400 (Not Given - Provider: Birdie Kang RN - Reason: Patient/family refused) 2199 (Given - Provider: Radha Farley RN) 1400 (Canceled Entry - Provider: Automatic Discharge Provider - Comment: Automatically canceled at discontinue of medication order) chlorhexidine (Peridex) 0.12 % solution 15 mL 15 mL, Mouth/Throat, 2 times daily, First dose on Wed05/10/24 at 1800, For 7 days, Recovery & On Unit, Rinse and spit. Do not swallow. 0833 (Given - Provider: Birdie Kang RN)2109 (Given - Provider: Jos Haas RN) 08 (Given - Provider: Clara Romero RN)2044 (Given - Provider: Radha Farley RN) 0846 (Given - Provider: Clara Romero RN) ferrous sulfate tablet 325 mg 325 mg, Oral, Every 48 hours, First dose on Wed05/17/24 at 0900 furosemide (Lasix) injection 40 mg 40 mg, IntraVENous, Daily, First dose on Wed05/15/24 at 1415 1451 (Given - Provider: Clara Romero RN) 0846 (Given - Provider: Clara Romero RN) heparin injection 5,000 Units 5,000 Units, SubCUTAneous, 2 times daily, First dose on Wed05/11/24 at 2100 0833 (Given - Provider: Birdie Kang RN)2109 (Given - Provider: Jos Haas RN) 0843 (Given - Provider: Clara Romero RN)2044 (Given - Provider: Radha Farley RN) 0846 (Given - Provider: Clara Romero RN) insulin glargine (Lantus) injection 22 Units (CANCELED) 22 Units, SubCUTAneous, Every morning, First dose (after last modification) on Wed05/14/24 at 0900 0835 (Given - Provider: Birdie Kang RN) insulin glargine (Lantus) injection 28 Units (CANCELED) 28 Units, SubCUTAneous, Every morning, First dose (after last modification) on Wed05/15/24 at 0900 0842 (Given - Provider: Clara Romero RN) insulin glargine (Lantus) injection 32 Units 32 Units, SubCUTAneous, Every morning, First dose (after last modification) on Wed05/16/24 at 0900 0846 (Given - Provid er: Clara Romero RN) Insulin Lispro (Humalog) injection 0-12 Units 0-12 Units, SubCUTAneous, 3 times daily with meals, First dose on Brianne 05/11/24 at 1200, Moderate dose Sliding scale: <150 = 0 unit 151-200 = 2 units 201-250 = 4 units 251-300 = 6 units 301-350 = 8 units 351-400 = 10 units > 400 = 12 units and call endocrine 0834 (Given - Provider: Birdie Kang RN)1118 (Given - Provider: Birdie Kang RN)1700 (Not Given - Provider: Birdie Kang RN - Reason: Order parameters not met) 0700 (Given - Provider: Jos Haas RN)1153 (Given - Provider: Clara Romero, VITOR)1650 (Given - Provider: Clara Romero RN) 0712 (Given - Provider: Radha Farley, VITOR)1200 (Canceled Entry - Provider: Automatic Discharge Provider - Comment: Automatically canceled at discontinue of medication order) Insulin Lispro (Humalog) injection 10 Units (CANCELED) 10 Units, SubCUTAneous, 3 times daily with meals, First dose (after last modification) on Wed05/14/24 at 1200, Hold if NPO or not eating 1117 (Given - Provider: Birdie Kang RN)1654 (Given - Provider: Birdie Kang RN) 0700 (Given - Provider: Jos Haas RN)1153 (Given - Provider: Clara Romero RN) Insulin Lispro (Humalog) injection 12 Units (CANCELED) 12 Units, SubCUTAneous, 3 times daily with meals, First dose (after last modification) on Wed05/15/24 at 1700, Hold if NPO or not eating 1650 (Given - Provider: Clara Romero RN) 0712 (Given - Provider: Radha Farley, VITOR) Insulin Lispro (Humalog) injection 14 Units 14 Units, SubCUTAneous, 3 times daily with meals, First dose (after last modification) on Wed05/16/24 at 1200, Hold if NPO or not eating 1200 (Canceled Entry - Provider: Automatic Discharge Provider - Comment: Automatically canceled at discontinue of medication order) Insulin Lispro (Humalog) injection 8 Units (CANCELED) 8 Units, SubCUTAneous, 3 times daily with meals, First dose (after last modification) on Wed05/13/24 at 1200, Hold if NPO or not eating 0833 (Given - Provider: Birdie Kang RN) Lidocaine 4 % patch 1 patch 1 patch, Topical, Administer over 12 Hours, Daily, First dose on Wed05/10/24 at 1400, Recovery & On Unit, Cut in half and place on both sides of the incision. Patch may remain in place for up to 12 hours in any 24 hour period. 0900 (Not Given - Provider: Birdie Kang RN - Reason: Patient/family refused) 0843 (Medication Applied - Provider: Clara Romero, RN)204 (Medication Removed - Provider: Radha Farley, RN) 0846 (Medication Applied - Provider: Clara Romero, VITOR)1115 (Due: Medication Removed - Provider: Automatic Discharge Provider - Comment: Time automatically adjusted from order being discontinued) magnesium hydroxide (Milk of Magnesia) 400 MG/5ML suspension 30 mL (CANCELED) 30 mL, Oral, Daily, First dose (after last modification) on Wed05/13/24 at 0600, Recovery & On Unit 0600 (Not Given - Provider: Jos Haas RN - Reason: Patient/family refused - Comment: diarhea over night patient refused) 0557 (Given - Provider: Cedric Kang RN) metoprolol tartrate (Lopressor) tablet 25 mg 25 mg, Oral, 2 times daily, First dose (after last modification) on Wed05/13/24 at 2100, Recovery & On Unit 0833 (Given - Provider: Birdie Kang RN)211 (Given - Provider: Jos Haas RN) 0842 (Given - Provider: Clara Romero, RN)204 (Given - Provider: Radha Farley, VITOR) 0847 (Given - Provider: Clara Romero, RN) mupirocin (Bactroban) 2 % ointment (COMPLETED) Nasal, 2 times daily, First dose on Wed05/10/24 at 1800, For 4 days, Recovery & On Unit 0835 (Given - Provider: Birdie Kang RN) pantoprazole (ProtoNix) EC tablet 40 mg 40 mg, Oral, Daily before breakfast, First dose on Wed05/12/24 at 0600, Do not crush, chew, or split. 0516 (Given - Provider: Jos Haas RN) 0557 (Given - Provider: Cedric Kang RN) 06 (Given - Provider: Radha Farley, VITOR) polyethylene glycol (PEG) 3350 (Miralax) packet 17 g 17 g, Oral, Daily, First dose on Brianne 05/11/24 at 0900, Recovery & On Unit, Bowel Regimen - for prevention of constipation. 0900 (Not Given - Provider: Birdie Kang RN - Reason: Patient/family refused) 08 (Not Given - Provider: Clara Romero RN - Reason: Order parameters not met) 0848 (Given - Provider: Clara Romero, VITOR) senna-docusate sodium (Senokot-S) 8.6-50 MG tablet 2 tablet 2 tablet, Oral, Nightly, First dose on Wed05/10/24 at 2100, Recovery [facility] On Unit, Bowel Regimen - for prevention of constipation. 2109 (Given - Provider: Jos Haas RN) 2044 (Given - Provider: Radha Farley RN) sodium chloride 0.9% (NS) flush 10 mL 10 mL, IntraVENous, Every 12 hours scheduled (2 times per day), First dose on Wed05/10/24 at 2100, Recovery [facility] On Unit 0900 (Given - Provider: Birdie Kang RN)2099 (Not Given - Provider: Jos Haas RN - Reason: IV Fluids Infusing) 09 (Not Given - Provider: Clara Romero RN - Reason: Other)2046 (Given - Provider: Radha Fraley RN) 0847 (Given - Provider: Clara Romero, VITOR) sodium chloride 0.9% (NS) flush 5-40 mL 5-40 mL, IntraCATHeter, Every 8 hours, First dose on Wed05/10/24 at 1230, Recovery & On Unit, For Line Patency: Peripheral IV = 5 mL; Midline or Central Line = 10 mL/lumen. If following IV push medication, administer flush at same rate as the IV push. Flush volume is determined by type of infusion therapy being given. For non-viscous solutions use: Peripheral IV = 5 mL Midline or Central Line = 10 mL/lumen For viscous solutions (i.e. blood components, parenteral nutrition, contrast media, or after obtaining blood sample) use: Peripheral IV = 10 mL Midline or Central Line = 20 mL/lumen 0600 (Given - Provider: Jos Haas RN)1200 (Given - Provider: Birdie Kang RN)2099 (Given - Provider: Jos Haas RN) 0600 (Given - Provider: Jos Haas RN)1230 (Not Given - Provider: Clara Romero RN - Reason: Other)2029 (Given - Provider: Radha Farley RN) 0600 (Given - Provider: Radha Farley RN)1230 (Canceled Entry - Provider: Automatic Discharge Provider - Comment: Automatically canceled at discontinue of medication order) PRN Medication Order 05/14/2024 05/15/2024 05/16/2024 calcium gluconate 2000 mg in 100 mL IVPB premix 2,000 mg, IntraVENous, at 50 mL/hr, Administer over 2 Hours, PRN, ionized calcium less than 4.3, Starting on Wed05/10/24 at 1221, Recovery & On Unit, Give 2000 mg for ionized calcium less than 4.3 premix bag dextrose 5 % infusion 100 mL/hr, IntraVENous, PRN, Blood sugar less than 70mg/dL, Starting on Wed05/10/24 at 1221, Recovery & On Unit, Start infusion following administration of dextrose 50% or glucagon. dextrose 50 % solution 12.5 g 12.5 g, IntraVENous, PRN, low blood sugar, Blood glucose less than 70 mg/dL and patient NOT ALERT or NPO., Starting on Wed05/10/24 at 1221, Recovery & On Unit, If patient does not respond within 5 minutes, repeat dose x1. Start D5W at 100 mL/hour until ordering provider can be reached. Repeat blood glucose in 15 minutes. If blood glucose is less than 70 mg/dL, repeat treatment and recheck blood glucose in 15 minutes x2. If using Glucostabilizer, dose as instructed per system. glucagon (human recombinant) injection 1 mg 1 mg, IntraMUSCular, PRN, low blood sugar, Blood glucose less than 70 mg/dL and patient NOT ALERT or NPO and does not have IV access., Starting on Wed05/10/24 at 1221, Recovery & On Unit, After administration, attempt intravenous access and start D5W at 100 mL/hr. Repeat blood glucose in 15 minutes x2 and notify provider. glucose oral gel 15 g 15 g, Oral, As needed, low blood sugar, Starting on Wed05/10/24 at 1221, Recovery & On Unit, If blood glucose less than 50 mg/dL and patient ALERT and NOT NPO, give 2 tubes glucose gel. If blood glucose less than 70 mg/dL and patient ALERT and NOT NPO, give 1 tube glucose gel. Repeat blood glucose in 15 minutes. If blood glucose is less than 70 mg/dL, repeat treatment and recheck blood glucose in 15 minutes x2 and notify provider. ipratropium-albuterol (Duo-Neb) 0.5-2.5 mg/3 mL nebulizer solution 3 mL 3 mL, Nebulization, 3 times daily PRN, wheezing, shortness of breath, Starting on Wed05/10/24 at 1221, Recovery & On Unit lactated ringers bolus 250 mL 250 mL, IntraVENous, at 124 mL/hr, Administer over 121 Minutes, Continuous PRN, fluid bolus challenge: lactated ringers bolus, Starting on Wed05/10/24 at 1221, Recovery & On Unit, To be given in conjunction with PRN 25gm Albumin order Use if hgb greater than 7.5 and PAD below goal (18) and/or Low BP (less than 90 SBP and/or less than 60 MAP) and/or Low urine output (less than 30ml/hr) per hemodynamic goals If hemodynamic goals unattained, proceed to second fluid bolus challenge If hgb less than 7.5 notify surgeon for orders. magnesium sulfate IVPB 4,000 mg(Linked Group 1) 4,000 mg, IntraVENous, at 25 mL/hr, Administer over 4 Hours, As needed, Per Magnesium Replacement Protocol, Starting on Wed05/10/24 at 1221, Recovery & On Unit, Mg Lab Replacement Action 1.4-1.6 2 gram IVPB x 1 doses 1.0-1.3 4 gram IVPB x 1 doses Less than 1.0 CALL PHYSICIAN and 4 gram IVPB x 1 doses Infuse at 1 gram/hr. Repeat Mag level next AM. Not for use in Patients with CrCl less than 30 mL/min. magnesium sulfate IVPB premix 2,000 mg(Linked Group 1) 2,000 mg, IntraVENous, at 25 mL/hr, Administer over 2 Hours, As needed, Per Magnesium Replacement Protocol, Starting on Wed05/10/24 at 1221, Recovery & On Unit, Mg Lab Replacement Action 1.4-1.6 2 gram IVPB x 1 doses 1.0-1.3 4 gram IVPB x 1 doses Less than 1.0 CALL PHYSICIAN and 4 gram IVPB x 1 doses Infuse at 1 gram/hr. Repeat Mag level next AM. Not for use in Patients with CrCl less than 30 mL/min. naloxone (Narcan) injection 0.4 mg 0.4 mg, IntraVENous, Every 5 min PRN, opioid reversal, respiratory depression, Starting on Wed05/10/24 at 1555, +++ For RR <10, pinpoint pupils, over sedation for opioid reversal - MUST notify extension work director provider immediately after first dose, may give IM or SQ if no IV access +++ ondansetron (Zofran) injection 4 mg(Linked Group 2) 4 mg, IntraVENous, Every 6 hours PRN, nausea, vomiting, Starting on Wed05/10/24 at 1221, Recovery & On Unit, 1st Line. Give IV if patient is unable to take orally. If inadequate response within 60 minutes, proceed to next-line agent or contact provider if no further options ordered. ondansetron ODT (Zofran-ODT) disintegrating tablet 4 mg(Linked Group 2) 4 mg, Oral, Every 8 hours PRN, nausea, vomiting, Starting on Wed05/10/24 at 1221, Recovery & On Unit, 1st Line. If inadequate response within 60 minutes, proceed to next-line agent or contact provider if no further options ordered. Patient should allow tablet to dissolve on tongue. Do not remove from blister pack until just before administering. oxyCODONE (Roxicodone) immediate release tablet 10 mg(Linked Group 3) 10 mg, Oral, Every 4 hours PRN, severe pain (7-10), Starting on Wed05/10/24 at 1221, Recovery & On Unit 0013 (See Alternativ e - Provider: Radha Farley RN) oxyCODONE (Roxicodone) immediate release tablet 5 mg(Linked Group 3) 5 mg, Oral, Every 4 hours PRN, moderate pain (4-6), Starting on Wed05/10/24 at 1221, Recovery [facility] On Unit 0013 (Given - Provid er: Radha Farley RN) potassium chloride 40 mEq in NS 500 mL IVPB (premix)(Linked Group 4) 40 mEq, IntraVENous, at 125 mL/hr, Administer over 4 Hours, 3 times daily PRN, hypokalemia, Starting on Wed05/10/24 at 1221, Recovery & On Unit, For Peripheral Line Use. K Lab Replacement Action 3.1-3.5 20 mEq IVPB x 1 doses 2.7-3.0 40 mEq IVPB x 1 doses less than 2.7 CALL PROVIDER and administer 40 mEq IVPB x 1 dose Infuse at 10 mEq/hr Repeat Potassium lab 1 hour after administration. Protocol not for use in Patients with CrCl less than 30mL/min potassium chloride CR (Klor-Con M10) ER tablet 20 mEq 20 mEq, Oral, PRN, Hypokalemia, Starting on Brianne 05/11/24 at 0000, Recovery & On Unit, If patient is intubated or not tolerating PO use PRN IV replacement protocol Potassium level Dose LESS than 3.0 = Give 20 mEq x 3 doses 3.0-3.6 = Give 20 mEq x 2 doses Recheck potassium level 2 hour after replacement given, place order for lab under [place] If potassium level LESS than 3 after 1st replacement: Call surgeon. Do not crush or break. Do not crush or chew. Potassium Chloride in NaCl IVPB 20 mEq(Linked Group 4) 20 mEq, IntraVENous, Administer over 2 Hours, Every 8 hours PRN, hypokalemia, Starting on Wed05/10/24 at 1221, Recovery & On Unit, For Peripheral Line Use K Lab Replacement Action 3.1-3.5 20 mEq IVPB x 1 doses 2.7-3.0 40 mEq IVPB x 1 doses less than 2.7 CALL PROVIDER and administer 40 mEq IVPB x 1 dose Infuse at 10 mEq/hr Repeat Potassium lab 1 hour after administration. Protocol not for use in Patients with CrCl less than 30mL/min potassium chloride IVPB 20 mEq(Linked Group 4) 20 mEq, IntraVENous, at 50 mL/hr, Administer over 1 Hours, 3 times daily PRN, hypokalemia, Starting on Wed05/10/24 at 1221, Recovery & On Unit, For Central Line Use Only K Lab Replacement Action 3.1-3.5 20 mEq IVPB x 2 doses 2.7-3.0 20 mEq IVPB x 2 doses (40 mEq Total) less than 2.7 CALL PROVIDER and administer 20 mEq IVPB x 2 doses (40 mEq Total) Infuse at 20 mEq/hr Repeat Potassium lab 1 hour after final administration. Protocol not for use in Patients with CrCl less than 30mL/min For central line administration only. sodium chloride 0.9% (NS) flush 10 mL 10 mL, IntraVENous, PRN, line care, Starting on Wed05/10/24 at 1221, Recovery & On Unit, After every IV line use sodium chloride 0.9% (NS) flush 5-40 mL 5-40 mL, IntraVENous, PRN, line care, before and after blood draws, infusion, or medication administration, Starting on Wed05/10/24 at 1221, Recovery & On Unit, For Line Patency: Peripheral IV = 5 mL; Midline or Central Line = 10 mL/lumen. If following IV push medication, administer flush at same rate as the IV push. Flush volume is determined by type of infusion therapy being given. For non-viscous solutions use: Peripheral IV = 5 mL Midline or Central Line = 10 mL/lumen For viscous solutions (i.e. blood components, parenteral nutrition, contrast media, or after obtaining blood sample) use: Peripheral IV = 10 mL Midline or Central Line = 20 mL/lumen Linked Groups Order Group 1: magnesium sulfate IVPB premix 2,000 mgJump to med 2,000 mg, IntraVENous, at 25 mL/hr, Administer over 2 Hours, As needed, Per Magnesium Replacement Protocol, Starting on Wed05/10/24 at 1221, Recovery & On Unit, Mg Lab Replacement Action 1.4-1.6 2 gram IVPB x 1 doses 1.0-1.3 4 gram IVPB x 1 doses Less than 1.0 CALL PHYSICIAN and 4 gram IVPB x 1 doses Infuse at 1 gram/hr. Repeat Mag level next AM. Not for use in Patients with CrCl less than 30 mL/min. Or magnesium sulfate IVPB 4,000 mgJump to med 4,000 mg, IntraVENous, at 25 mL/hr, Administer over 4 Hours, As needed, Per Magnesium Replacement Protocol, Starting on Wed05/10/24 at 1221, Recovery & On Unit, Mg Lab Replacement Action 1.4-1.6 2 gram IVPB x 1 doses 1.0-1.3 4 gram IVPB x 1 doses Less than 1.0 CALL PHYSICIAN and 4 gram IVPB x 1 doses Infuse at 1 gram/hr. Repeat Mag level next AM. Not for use in Patients with CrCl less than 30 mL/min. Group 2: ondansetron ODT (Zofran-ODT) disintegrating tablet 4 mgJump to med 4 mg, Oral, Every 8 hours PRN, nausea, vomiting, Starting on Wed05/10/24 at 1221, Recovery & On Unit, 1st Line. If inadequate response within 60 minutes, proceed to next-line agent or contact provider if no further options ordered. Patient should allow tablet to dissolve on tongue. Do not remove from blister pack until just before administering. Or ondansetron (Zofran) injection 4 mgJump to med 4 mg, IntraVENous, Every 6 hours PRN, nausea, vomiting, Starting on Wed05/10/24 at 1221, Recovery & On Unit, 1st Line. Give IV if patient is unable to take orally. If inadequate response within 60 minutes, proceed to next-line agent or contact provider if no further options ordered. Group 3: oxyCODONE (Roxicodone) immediate release tablet 5 mgJump to med 5 mg, Oral, Every 4 hours PRN, moderate pain (4-6), Starting on Wed05/10/24 at 1221, Recovery & On Unit Or oxyCODONE (Roxicodone) immediate release tablet 10 mgJump to med 10 mg, Oral, Every 4 hours PRN, severe pain (7-10), Starting on Wed05/10/24 at 1221, Recovery & On Unit Group 4: potassium chloride IVPB 20 mEqJump to med 20 mEq, IntraVENous, at 50 mL/hr, Administer over 1 Hours, 3 times daily PRN, hypokalemia, Starting on Wed05/10/24 at 1221, Recovery & On Unit, For Central Line Use Only K Lab Replacement Action 3.1-3.5 20 mEq IVPB x 2 doses 2.7-3.0 20 mEq IVPB x 2 doses (40 mEq Total) less than 2.7 CALL PROVIDER and administer 20 mEq IVPB x 2 doses (40 mEq Total) Infuse at 20 mEq/hr Repeat Potassium lab 1 hour after final administration. Protocol not for use in Patients with CrCl less than 30mL/min For central line administration only. Or Potassium Chloride in NaCl IVPB 20 mEqJump to med 20 mEq, IntraVENous, Administer over 2 Hours, Every 8 hours PRN, hypokalemia, Starting on Wed05/10/24 at 1221, Recovery & On Unit, For Peripheral Line Use K Lab Replacement Action 3.1-3.5 20 mEq IVPB x 1 doses 2.7-3.0 40 mEq IVPB x 1 doses less than 2.7 CALL PROVIDER and administer 40 mEq IVPB x 1 dose Infuse at 10 mEq/hr Repeat Potassium lab 1 hour after administration. Protocol not for use in Patients with CrCl less than 30mL/min Or potassium chloride 40 mEq in NS 500 mL IVPB (premix)Jump to med 40 mEq, IntraVENous, at 125 mL/hr, Administer over 4 Hours, 3 times daily PRN, hypokalemia, Starting on Wed05/10/24 at 1221, Recovery & On Unit, For Peripheral Line Use. K Lab Replacement Action 3.1-3.5 20 mEq IVPB x 1 doses 2.7-3.0 40 mEq IVPB x 1 doses less than 2.7 CALL PROVIDER and administer 40 mEq IVPB x 1 dose Infuse at 10 mEq/hr Repeat Potassium lab 1 hour after administration. Protocol not for use in Patients with CrCl less than 30mL/min FOR RECORDS PERTAINING TO PATIENTS WHO ARE [...] BE BASED ON THE PRIMARY CLINICAL RECORDS. [employer] provides no warranty or guarantee of the accuracy or completeness of information in this document.
--- OUTSIDE RECORDS SUMMARY | 2024-10-02 21:37 | XMS RPT_ITS | CCD ---
Author Organization [facility] Care Team Providers Care Test Operator Name Role Phone Charity Landis RN Unavailable Unavailable Rosa Harris Unavailable Hailey Huerta Unavailable Unavailable Hailey Huerta Unavailable Unavailable Steven, Rosa L Unavailable Fredis Moon Chi Primary Care Provider [phone] Red, Dr. Fredis Schaefer Primary Care Provider 1([facility])[phone] Red, Dr. Fredis Schaefer Referring Provider 1([facility])[phone] Josias Turk Attending Provider 1([facility])[phone] Red, Dr. Fredis Schaefer Primary Care Provider Dr. Krish Nagel Attending Provider 1([facility])[phone] Red, Dr. Fredis Schaefer Primary Care Provider 1([facility])[phone] Dr. Krish Nagel Attending Provider 1([facility])[phone] Red, Dr. Fredis Schaefer Primary Care Provider 1([facility])[phone] Red, Dr. Fredis Schaefer Referring Provider 1([facility])[phone] SCIENTIST, RD SCIENTIST-C Mi Attending Provider Red, Dr. Fredis Schaefer Primary Care Provider Red, Dr. Fredis Schaefer Referring Provider David RD SCIENTIST, RD SCIENTIST-C Mi Attending Provider Unavailable Primary Care Provider Unavailbianka Moon MD, Kelsey Primary Care Provider Chante Hong RN Unavailable Unavailable Red SCHMITT, Dr. Fredis Schaefer Primary Care Provider [phone] Red SCHMITT, Dr. Fredis Schaefer Attending Provider [phone] Red SCHMITT, Dr. Fredis Schaefer Referring Provider Esteban SCHMITT, Dr. Davies Attending Provider Esteban SCHMITT, Dr. Davies Referring Provider Kriss SCHMITT, Dr. Klein Attending Provider Esteban SCHMITT, Dr. Davies Other Provider Anna Marie NOVA, Raven Griffith Attending Provider Red SCHMITT, Dr. Fredis Schaefer Admit Provider Red SCHMITT, Kelsey Primary Care Provider [phone] Chante Hong RN Unavailable Unavailable Lilliana Romeo [...] Unavailable Unavailable Lilliana Romeo I. Unavailable [phone] VELASCO, DAYSI Attending Unavailable SAMSON ELDER Referring [...] Provider Dr. Tiara Alston DO Attending Provider [phone] Red, Fredis Chi Primary Care Unavailable Red, [...] Red, Fredis Chi Primary Care Unavailable David RD SCIENTIST, Mi Consulting Unavailable Red, Fredis Chi Referring [...] Red, Fredis Chi Primary Care Unavailable Esteban, Smason Referring Unavailable Esteban, Samson Attending Unavailable Red, [...] Care Unavailable Red, Fredis Chi Attending Unavailable Hatfield Daysi Attending Unavailable Red, Fredis Chi Primary [...] Inhibitors (Statins) drug allergy flu like symptoms [facility] Work Phone: (5 sources) rosuvastatin Drug Allergy 5 flu like symptoms [facility] Work Phone: (20 sources) Adhesive Tape; Translations: [adhesive tape] Propensity to adverse reactions 1 skin tears [facility] (20 sources) rosuvastatin Drug Allergy 5 Flu like symptoms [facility] (2 sources) Adhesive Tape-Silicones Drug Allergy 2 Rash [facility] (13 sources) Adhesive Tape Drug Allergy [address] [facility] (1 source) rosuvastatin Drug Allergy 5 [facility] Repository Medications Current Medications Medication Drug Class(es) [...] TBEC One tablet by mouth daily ASPIRIN [id number] Charity Landis RN Start: 12-18-2016 End: 05-16-2024 take 1 tablet by mouth once daily ASPIRIN EC 81 MG TBEC One tablet by mouth daily ASPIRIN [id number] Charity Landis RN Start: 10-06-2012 End: 11-21-2014 take 1 tablet by mouth once daily ASPIRIN 81 MG TABS One tablet by mouth daily ASPIRIN [id number] Josias Turk MD Start: 04-03-2009 aspirin(ECOTRI N LOW STRENGTH 81 MG TAB) Take one(1) tablet three times per week 0 04/03/2009 Active ASPIRIN 81 MG TA BS ASPIRIN [id number] Luis Escamilla DO Comment on above: Take [...] One tablet by mouth daily ATORVASTATIN CALCIUM [id number] Josias Turk MD End: 05-16-2024 Calcium Carb-Vitamin D3-Vit K2 (20 sources) Start: 12-20-2017 take 1 tablet by mouth once daily Calcium Carb-Vitamin D3-Vit K2 Active 1 TABLET PO DAILY December 20, 2017 1:41pm Start: 12-20-2017 take 1 tablet by tres once daily Calcium Carb-Vitamin D3-Vit K2 Active 1 TABLET PO DAILY December 20, 2017 12:41pm Start: 12-20-2017 take 2 tablets by mo [facility] once daily Calcium Carb-Vitamin D3-Vit K2 Active 2 TABLET PO DAILY December 20, 2017 12:41pm Start: 12-20-2017 take 2 tablets by mo [facility] once daily Calcium Carb-Vitamin D3-Vit K2 Active [...] tablets by mouth twice daily METFORMIN HCL [id number] Josias Turk MD Start: 10-06-2012 take 2 tablets by mo uth once daily METFORMIN HCL 500 MG TABS Two tablets by mouth daily METFORMIN HCL 59252154747 Josias Turk MD Start: 02-15-2012 take 2 tablets by mo uth every hour metFORMIN ER 500 mg 24 hr tablet Take by mouth two tablets every moning 60 tablet 11 02/15/2012 Active Start: 05-12-2011 METFORMIN HCL 500 MG TABS METFORMIN HCL 13460989584 Luis Escamilla DO Comment on above: Take [...] Active METOPROLOL SUCCI HUNTER ER 25 MG [id number] METOPROLOL SUCCINATE [id number] Luis Escamilla DO Comment on above: Take [...] tres th once daily MYRBETRIQ 50 MG [id number] One tablet by mouth daily MIRABEGRON [id number] Josias Turk MD Propylene glycol (8 sources) [...] PE N One injection once weekly. ALBIGLUTIDE [id number] Alexandra Baum RD SCIENTIST 20 ml albumin human, intermediate 250 mg/ml injection (4 sources) Human Serum [...] by mouth daily CALCIUM CARBONATE-VITAMIN D TABS 68078632879 Josias Turk MD CALCIUM 500/KATIE MIN D TABS CALCIUM CARBONATE-VITAMIN D TABS [id number] Luis Escamilla DO Calcium 600 + Vit [...] by mouth daily CALCIUM CARBONATE-VITAMIN D TABS [id number] Josias Turk MD Start: 04-08-2010 take 1 tablet by tres once daily calcium carbonate 600 mg-cholecalciferol 200 units (CALCIUM 600 + D,3,) 600 mg(1,500mg) -200 unit ORAL Tab Take one(1) tablet daily. 0 04/08/2010 Active CALCIUM 500/KATIE MIN D TABS CALCIUM CARBONATE-VITAMIN D TABS 59504562843 Luis Escamilla DO Comment on above: Take [...] Parkinsons Start: 01-12-2020 take 1 tablet by [facility] three times daily Carbidopa-Levodopa Active 1 [...] One tablet by mouth daily CHROMIUM TABS [id number] Josias Turk MD Start: 05-15-2013 take 1 tablet by tres th once daily CHROMIUM GTF TABS One tablet by mouth daily CHROMIUM TABS [id number] Josias Turk MD Start: 05-15-2013 take 1 tablet by tres th once daily CHROMIUM GTF TABS One tablet by mouth daily CHROMIUM TABS [id number] Josias Turk MD Start: 05-15-2013 End: 11-21-2014 take 1 tablet by mouth once daily CHROMIUM GTF TABS One tablet by mouth daily CHROMIUM TABS 43697192625 Josias Turk MD cinnamon bark 500 mg [...] CAPS Two tablets by mouth daily CINNAMON [id number] Josias Turk MD Start: 05-15-2013 End: 11-21-2014 take 1 tablet by mouth twice daily CINNAMON 500 MG CAPS One tablet by mouth twice daily CINNAMON [id number] Josias Turk MD ciprofloxacin 500 mg oral [...] 1:43pm docusate sodium 50 mg / sennosides, intermediate 8.6 mg oral tablet (2 sources) Start: [...] CAPS One tablet by mouth daily DUTASTERIDE [id number] Josias Turk MD EPINEPHrine 5mg in 0.9% sodium chloride 250 mL infusion (weight-based) (2 sources) Start: 05-10-2024 End: 05-11-2024 EXENATIDE SOLN (20 sources) GLP-1 Receptor Agonist Start: 05-15-2013 take 10 ug by subcutaneous injection twice daily BYETTA 10 MCG PEN SOPN SQ twice daily EXENATIDE SOLN [id number] Josias Turk MD Start: 05-15-2013 inject 10 ug by subc utaneous injection twice daily BYETTA 10 MCG PEN SOPN SQ twice daily EXENATIDE SOLN [id number] Josias Turk MD Start: 05-15-2013 End: 12-21-2016 inject 10 ug by subcutaneous injection twice daily BYETTA 10 MCG PEN SOPN SQ twice daily EXENATIDE SOLN [id number] Josias Turk MD Start: 05-15-2013 inject 10 ug by subc utaneous injection twice daily BYETTA 10 MCG PEN SOPN SQ twice daily EXENATIDE SOLN [id number] Josias Turk MD Start: 10-06-2012 BYETTA 10 MCG PEN SOPN as directed EXENATIDE SOLN [id number] Josias Turk MD Start: 10-06-2012 End: 05-15-2013 BYETTA 10 MCG PEN SOPN as directed EXENATIDE SOLN [id number] Josias Turk MD Start: 10-06-2012 BYETTA 10 MCG PEN SOPN as directed EXENATIDE SOLN [id number] Josias Turk MD Start: 10-06-2012 End: 05-15-2013 BYETTA 10 MCG PEN SOPN as directed EXENATIDE SOLN [id number] Josias Turk MD Start: 10-06-2012 BYETTA 10 MCG PEN SOPN as directed EXENATIDE SOLN [id number] Josias Turk MD Start: 10-06-2012 End: 05-15-2013 BYETTA 10 MCG PEN SOPN as directed EXENATIDE SOLN [id number] Josias Turk MD Start: 10-28-2011 exenatide (BYE TTA) 10 mcg/0.04 mL PnIj Inject twice daily before meals 1 Pen 11 10/28/2011 Active End: 10-06-2012 BYETTA 10 MCG PEN SOPN 10/06 EXENATIDE SOLN [id number] Josias Turk MD End: 10-06-2012 BYETTA 10 MCG PEN SOPN 10/06 EXENATIDE SOLN [id number] Josias Turk MD BYETTA 10 MCG PE N SOPN EXENATIDE SOLN [id number] Luis Clayton Escamilla DO BYETTA 10 MCG PE N SOPN EXENATIDE SOLN [id number] Luis Clayton Escamilla DO End: 10-06-2012 BYETTA 10 MCG PEN SOPN 10/06 EXENATIDE SOLN [id number] Josias Turk MD Comment on above: Inject [...] TABS One tablet by mouth daily FAMOTIDINE [id number] Josias Turk MD finasteride 5 mg oral [...] TABS One tablet by mouth daily FINASTERIDE [id number] Raven Thrasher PA-C fluticasone propionate 0.05 mg/actuat metered dose nasal spray (10 sources) Corticosteroid End: 05-15-2013 FLUTICASONE PROPIONATE 50 MCG/ACT SUSP once daily FLUTICASONE PROPIONATE [id number] Deni Peoples Tabitha furosemide 40 mg oral [...] End: 10-06-2012 GABAPENTIN TABS G ABAPENTIN TABS [id number] Josias Turk MD GABAPENTIN TABS GABAPENTIN TABS [id number] Luis Escamilla DO End: 10-06-2012 GABAPENTIN TABS G ABAPENTIN TABS [id number] Josias Turk MD Comment on above: Takes 1-2 daily glimepiride 4 mg oral tablet (20 sources) Sulfonylurea Start: 10-06-2012 End: 12-21-2016 take 1 tablet by mouth twice daily GLIMEPIRIDE 2 MG TABS One tablet by mouth twice daily GLIMEPIRIDE [id number] Josias Turk MD Start: 02-15-2012 take 0.5 tablet by m outh once daily glimepiride 4 mg tablet Take by mouth 1/2 tab daily 15 tablet 11 02/15/2012 Active GLIMEPIRIDE 4 MG TABS GLIMEPIRIDE [id number] Luis Escamilla DO Comment on above: Take by mouth 1/2 ta b daily glucagon (rdna) 1 mg injecti on (2 sources) Antihypoglycemic Agent Start: 05-10-2024 End: 05-16-2024 50 ml glucose 50 mg/ml injec tion (4 sources) Start: 05-10-2024 End: 05-16-2024 Start: 05-10-2024 End: 05-16-2024 GLUCOSE BLOOD (2 sources) End: 10-06-2012 ACCU-CHEK CLARITZA STRP GLUCOSE BLOOD [id number] Josias Turk MD ACCU-CHEK CLARITZA STRP GLUCOSE BLOOD [id number] Luis Escamilla DO GLUCOSE BLOOD (8 sources) ACCU-CHEK CLARITZA STRP GLUCOSE BLOOD [id number] Luis Escamilla DO End: 10-06-2012 ACCU-CHEK CLARITZA STRP GLUCOSE BLOOD [id number] Josias Turk MD glycerin 2 mg/ml / hypromellose 2 mg/ml / polyethylene glycol 400 10 mg/ml ophthalmic solution (12 sources) Non-Standardized Chemical Allergen Start: 05-16-2024 End: 06-06-2024 Peg 555-Yunalmunxenz-Brmpjgxp (Artificial Tears(Zr-Ulrz-Mrry)) 1-0.2-0.2 % drops Discontinued 1 NMA EACH EYE THREE TIMES A DAY as needed for dry eyes May 16, 2024 12:00am June 06, 2024 7:17pm 0.5 ml heparin sodium, porcine 45066 unt/ml prefilled syringe (2 sources) Unfractionated Heparin, Anti-coagulant Start: 05-11-2024 End: 05-16-2024 hydroCHLOROthiazide 12.5 mg oral capsule (12 sources) Thiazide Diuretic Start: 06-01-2011 take 1 capsule by mouth once daily Hydrochlorothiazide 12.5 mg ORAL capsule Take 1 capsule by mouth once daily. 90 capsule 4 06/01/2011 Active End: 10-06-2012 HYDROCHLOROTHIAZIDE 12.5 MG TABS HYDROCHLOROTHIAZIDE [id number] Luis Escamilla DO Comment on above: Take 1 capsule by [facility] once daily. insulin glargine 100 unt/ml injectable [...] LANTUS SOLN as directed INSULIN GLARGINE SOLN [id number] Josias Turk MD Start: 10-06-2012 End: 12-21-2016 LANTUS SOLN as directed INSULIN GLARGINE SOLN [id number] Josias Turk MD Start: 10-06-2012 LANTUS SOLN as directed INSULIN GLARGINE SOLN [id number] Josias Turk MD Start: 05-15-2011 insulin glargi [...] Active LANTUS SOLN INSU MARTIN GLARGINE SOLN [id number] Luis Escamilla DO Comment on above: Inject [...] NEEDLES 29G X 12MM INSULIN PEN NEEDLE [id number] Josias Turk MD EASY TOUCH PEN N EEDLES 29G X 12MM INSULIN PEN NEEDLE [id number] Luis Escamilla DO 100 ml insulin, regular, [...] 2 % CREA as directed MICONAZOLE NITRATE [id number] Josias Turk MD Start: 03-01-2012 End: 10-06-2012 MICONAZOLE 7 2 % CREA once d aily in AM to genital area MICONAZOLE NITRATE [id number] Josias Turk MD Start: 03-01-2012 MICONAZOLE 7 2 % CREA once daily in AM to genital area MICONAZOLE NITRATE [id number] Deni Lu Start: 03-01-2012 End: 10-06-2012 MICONAZOLE 7 2 % CREA once d aily in AM to genital area MICONAZOLE NITRATE [id number] Deni Lu Miconazole Nitra te 2 % [...] One-half tablet by mouth twice daily NIACIN [id number] Josias Turk MD take 1 tablet by tres twice daily at mealtime niacin sustained release 500 mg tablet Indications: Type II or unspecified type diabetes mellitus without mention of complication, uncontrolled Take 500 mg by mouth twice daily with meals. 0 Active NIACIN 500 MG TA BS NIACIN [id number] Luis Escamilla DO Comment on above: Take 500 mg by mouth twice daily with meals. norepinephrine (Levophed) 16 mg in 0.9% sodium chloride 250 mL infusion (weight based) (premix) (2 sources) Start: 05-10-2024 End: 05-12-2024 [place] 2-Fuh-Gxw-Fish Oil (Fish Oil) 60-90-500 mg capsule (20 sources) Start: 01-21-2022 End: 12-30-2022 [place] 9-Xtr-Fdy-Fish Oil (Fish Oil) 60-90-500 mg capsule Discontinued 1 NMA PO DAILY January 21, 2022 1:00am December 30, 2022 10:41pm Start: 01-21-2022 End: 12-30-2022 take 1 capsule by mouth once daily [place] 9-Gcs-Txv-Fish Oil (Fish Oil) 60-90-500 mg capsule Discontinued 1 CAP PO DAILY January 21, 2022 1:00am December 30, 2022 10:41pm Start: 01-21-2022 End: 12-30-2022 take 1 capsule by mouth once daily [place] 9-Qdr-Ear-Fish Oil (Fish Oil) 60-90-500 mg capsule Discontinued 1 CAP PO DAILY January 21, 2022 12:00am December 30, 2022 9:41pm Start: 01-21-2022 take 1 capsule by [facility] once daily [place] 5-Ujl-Lis-Fish Oil (Fish Oil) 60-90-500 mg capsule Active 1 CAP PO DAILY January 21, 2022 1:00am omega-3 acid ethyl esters (intermediate) 1000 mg oral capsule (12 sources) Start: 12-21-2011 End: 12-20-2015 omega-3 acid ethyl esters (LOVAZA) 1 gram capsule Indications: Type II or unspecified type diabetes mellitus without mention of complication, uncontrolled Take 2 capsules by mouth twice daily. 120 capsule 11 12/21/2011 Active Comment on above: Take 2 capsules by [facility] twice daily. OMEGA-3 FATTY ACIDS CPDR (2 sources) OMEGA 3 CPDR OME GA-3 FATTY ACIDS CPDR [id number] Luis Escamilla DO End: 10-06-2012 OMEGA 3 CPDR OMEG A-3 FATTY ACIDS CPDR [id number] Josias Turk MD OMEGA-3 FATTY ACIDS CPDR (8 sources) OMEGA 3 CPDR OME GA-3 FATTY ACIDS CPDR 59648800605 Luis Escamilla DO End: 10-06-2012 OMEGA 3 CPDR OMEG A-3 FATTY ACIDS CPDR 60367505899 Josias Turk MD 24 hr oxybutynin chloride [...] One tablet by mouth daily OXYBUTYNIN CHLORIDE 37447464024 Josias Turk MD oxyCODONE hydrochloride 5 mg [...] Start: 05-10-2024 End: 05-11-2024 polyethylene glycol 3350 56556 mg powder for oral solution (2 sources) [...] tablet by mouth at bedtime. PRAVASTATIN SODIUM 49221182802 Raven Thrasher PA-C 100 ml propofol 10 [...] One tablet by mouth daily SITAGLIPTIN PHOSPHATE [id number] Alexandra Baum RD SCIENTIST 5 ml sodium chloride 9 mg/ml injection [...] 0.025 % CREA as directed TRIAMCINOLONE ACETONIDE [id number] Josias Turk MD End: 05-16-2024 triamcinolone (Kenalog) 0.1 % ointment Apply topically. Active triamcinolone (K enalog) 0.1 % lotion Apply 1 Application topically Daily as needed. Active vardenafil 10 mg disintegrating oral tablet (10 sources) Phosphodiesterase 5 Inhibitor End: 05-15-2013 STAXYN 10 MG TBDP as needed VARDENAFIL HCL [id number] Deni Lu Vibegron (20 sources) Start: 01-21-2022 [...] 1 000 MCG/15ML LIQD injections monthly CYANOCOBALAMIN [id number] Josias Turk MD Start: 05-15-2013 VITAMIN B-12 1 000 MCG/15ML LIQD injections monthly CYANOCOBALAMIN [id number] Josias Turk MD Start: 05-15-2013 VITAMIN B-12 1 000 MCG/15ML LIQD injections monthly CYANOCOBALAMIN [id number] Josias Turk MD (8 sources) Start: 05-10-2024 [...] disease (20 sources) 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; Translations: [Coronary [...] function study,I25.10 - 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 Unclassified (11 [...] [Mass/Vol] 72.60 mg/dL Normal 39.00- 259.0 0 [facility] Comment on above: Performed By: #### L 502.0250 ####[facility] [address] [place], [place], [id number] MALB:CREAT 22.0 mg/g CRE Normal <30 mg/g CRE [facility] Comment on above: Performed By: #### L 502.0250 ####[facility] [address] [place], [place], [id number] MICROALBUMIN,UR 16.0 mg/L Normal <20 mg/L [facility] Comment on above: Performed By: #### L 502.0250 ####[facility] [address] [place], [place], [id number] Random urine creatinine mt urement (mass/volume)Ordered By: Fredis Moon on 09-12-2024 Creatinine Unsp time (U) [Mass/Vol] 72.60 mg/dL 39.00-259.0 0 [facility] Urine albumin measurement wi th detection limit of 20 mg/L or less (mass/volume)Ordered By: Fredis Moon on 09-12-2024 Albumin DL <= 20 mg/L (U) [Mass/Vol] 16.0 mg/L <20 mg/L [facility] Absolute lymphocyte countOrd ered By: Tiara Alston on 09-08-2024 Lymphocytes Auto (Unsp spec) [#/Vol] 0.98 10*3/uL 0.83-4.51 [facility] Absolute neutrophil countOrd ered By: Tiara Alston on 09-08-2024 Neutrophils (Bld) [#/Vol] 3.6 10*3/uL 2.0-7.7 [facility] Anion gap in Serum or Plasma Ordered By: Tiara Alston on 09-08-2024 Anion gap [Moles/Vol] 12 mmol/L 5-15 [facility] Automated lymphocyte count a s percentage of total leukocytesOrdered By: Tiara Alston on 09-08-2024 Lymphocytes/100 WBC Auto (Unsp spec) 17.6 % Low 19-41 [facility] BUN/creatinine ratioOrdered By: Tiara Alston on 09-08-2024 Urea nitrogen/Creatinine [Mass ratio] 24.2 mg/mg High 10-20 [facility] Basic Metabolic Profile (BMP )on 09-08-2024 BUN/CRE 24.2 RATIO High - [facility] Comment on above: Performed By: #### L 500.2500, L100.0100 ####[facility] [address] [place], [address] Calcium [Mass/Vol] 9.6 mg/dL Normal 7.6-11.0 [facility] Comment on above: Performed By: #### L 500.2500, L100.0100 ####[facility] [address] [place], [address] Chloride [Moles/Vol] 103 mmol/L Normal 98-108 [facility] Comment on above: Performed By: #### L 500.2500, L100.0100 ####[facility] [address] [place], [address] CO2 [Moles/Vol] 26.3 mmol/L Normal 21.0-32.0 [facility] Comment on above: Performed By: #### L 500.2500, L100.0100 ####[facility] [address] [place], [address] Creatinine [Mass/Vol] 1.00 mg/dL Normal 0.70-1.20 [facility] Comment on above: Performed By: #### L 500.2500, L100.0100 ####[facility] [address] [place], [address] ECRCL 61.00 ml/min Normal 50-250 [facility] Comment on above: Performed By: #### L 500.2500, L100.0100 ####[facility] [address] [place], [address] GAP 12 Normal 5-15 [facility] Comment on above: Performed By: #### L 500.2500, L100.0100 ####[facility] [address] [place], [address] GFR/1.73 sq M.predicted among non-blacks MDRD (S/P/Bld) [Vol rate/Area] 75 mL/min/{1.73_m2} Normal >60 [facility] Comment on above: Result Comment: mL/m in/1.73m2 CKD-EPI Creatinine Equation (2020) Performed By: #### L 500.2500, L100.0100 ####[facility] [address] [place], [address] Glucose [Mass/Vol] 109 mg/dL High 70-99 [facility] Comment on above: Performed By: #### L 500.2500, L100.0100 ####[facility] [address] [place], [address] Potassium [Moles/Vol] 4.3 mmol/L Normal 3.3-5.1 [facility] Comment on above: Performed By: #### L 500.2500, L100.0100 ####[facility] [address] [place], [address] Sodium [Moles/Vol] 141 mmol/L Normal 133-145 [facility] Comment on above: Performed By: #### L 500.2500, L100.0100 ####[facility] [address] [place], [address] Urea nitrogen [Mass/Vol] 24 mg/dL High 4-19 [facility] Comment on above: Performed By: #### L 500.2500, L100.0100 ####[facility] [address] [place], [address] Basophil percentageOrdered B y: Tiara Alston on 09-08-2024 Basophils/100 WBC (Bld) 1.1 % High 0-[address] [facility] Bedside Glucoseon 09-08-2024 FINGERSTICK GLU 142 mg/dL High 74-106 [facility] Comment on above: Result Comment: NIKI ROMERO OF PATIENT CARE PER NURSING PROTOCOL Performed By: #### L 501.080 ####[facility] [address] [place], [address] CBC W/Diff, Automatedon 08-22 Absolute Lymph 0.98 X10 3/uL Normal 0.83-4.51 [facility] Comment on above: Performed By: #### L 500.2500, L100.0100 ####[facility] [address] [place], [address] Absolute Neut 3.6 X10 3/uL Normal 2.0-7.7 [facility] Comment on above: Performed By: #### L 500.2500, L100.0100 ####[facility] [address] [place], [address] Basophils/100 WBC (Bld) 1.1 % High 0-[address] [facility] Comment on above: Performed By: #### L 500.2500, L100.0100 ####[facility] [address] [place], [address] Eosinophils/100 WBC (Bld) 1.8 % Normal 0-5 [facility] Comment on above: Performed By: #### L 500.2500, L100.0100 ####[facility] [address] [place], [address] Erythrocyte distribution width (RBC) [Ratio] 14.9 % High 11.6-14.6 [facility] Comment on above: Performed By: #### L 500.2500, L100.0100 ####[facility] [address] [place], [address] Hematocrit (Bld) [Volume fraction] 43.7 % Normal 40-54 [facility] Comment on above: Performed By: #### L 500.2500, L100.0100 ####[facility] [address] [place], [address] Hemoglobin (Bld) [Mass/Vol] 14.1 g/dL Normal 13.0-16.5 [facility] Comment on above: Performed By: #### L 500.2500, L100.0100 ####[facility] [address] [place], [address] IG% 0.700 Normal 0.0-0.9 [facility] Comment on above: Result Comment: IG% - Immature Granulocytes (promyelocytes, myelocytes andmetamyelocytes) > 1% indicates that a LEFT SHIFT is Present. Performed By: #### L 500.2500, L100.0100 ####[facility] [address] [place], [address] Lymphocytes/100 WBC (Bld) 17.6 % Low 19-41 [facility] Comment on above: Performed By: #### L 500.2500, L100.0100 ####[facility] [address] [place], [address] MCH (RBC) [Entitic mass] 26.8 pg Low 27.0-32.0 [facility] Comment on above: Performed By: #### L 500.2500, L100.0100 ####[facility] [address] [place], [address] MCHC (RBC) [Mass/Vol] 32.3 g/dL Normal 32-36 [facility] Comment on above: Performed By: #### L 500.2500, L100.0100 ####[facility] [address] [place], [address] MCV (RBC) [Entitic vol] 83.1 fL Normal 80-[address] [facility] Comment on above: Performed By: #### L 500.2500, L100.0100 ####[facility] [address] [place], [address] Monocytes/100 WBC (Bld) 13.8 % High 0-[address] [facility] Comment on above: Performed By: #### L 500.2500, L100.0100 ####[facility] [address] [place], [address] Neutrophils/100 WBC (Bld) 65.0 % Normal 47-70 [facility] Comment on above: Performed By: #### L 500.2500, L100.0100 ####[facility] [address] [place], [address] Nucleated RBC (Bld) [#/Vol] 0 10*3/uL Normal 0-5 [facility] Comment on above: Performed By: #### L 500.2500, L100.0100 ####[facility] [address] [place], [address] Platelet mean volume (Bld) [Entitic vol] 9.2 fL Normal 6.2-12.0 [facility] Comment on above: Performed By: #### L 500.2500, L100.0100 ####[facility] [address] [place], [address] Platelets (Bld) [#/Vol] 189 10*3/uL Normal 150-450 [facility] Comment on above: Performed By: #### L 500.2500, L100.0100 ####[facility] [address] [place], [address] RBC (Bld) [#/Vol] 5.26 10*6/uL Normal 4.6-6.2 [facility] Comment on above: Performed By: #### L 500.2500, L100.0100 ####[facility] [address] [place], [address] RDW SD 44.7 fl High 35.1-43.9 [facility] Comment on above: Performed By: #### L 500.2500, L100.0100 ####[facility] [address] [place], [address] WBC (Bld) [#/Vol] 5.6 10*3/uL Normal 4.4-11.0 [facility] Comment on above: Performed By: #### L 500.2500, L100.0100 ####[facility] [address] [place], [address] Carbon dioxide, total [Moles /volume] in Central venous bloodOrdered By: Tiara Alston on 09-08-2024 CO2 [Moles/Vol] 26.3 mmol/L 21.0-32.0 [facility] Chest PA and Lateralon 09-08 Chest PA and Lateral Normal [facility] Chloride assayOrdered By: Jaun Alston on 09-08-2024 Chloride [Moles/Vol] 103 mmol/L 98-108 [facility] Emergency Department Summary on 09-08-2024 Emergency Department Summary Normal [facility] Eosinophil percentageOrdered By: Tiara Alston on 09-08-2024 Eosinophils/100 WBC (Bld) 1.8 % 0-5 [facility] Erythrocyte distribution wid th ratioOrdered By: Tiara Alston on 09-08-2024 Erythrocyte distribution width (RBC) [Ratio] 14.9 % High 11.6-14.6 [facility] Erythrocyte distribution wid th standard deviationOrdered By: Tiara Alston on 09-08-2024 Erythrocyte distribution width (RBC) [Ratio] 44.7 fl High 35.1-43.9 [facility] Glomerular filtration rate ( GFR) estimation/1.73 sq m using serum, plasma, or whole bOrdered By: Tiara Alston on 09-08-2024 GFR/1.73 sq M.predicted among non-blacks MDRD (S/P/Bld) [Vol rate/Area] 75 mL/min/{1.73_m2} >60 [facility] Comment on above: mL/min/1.73m2 CKD-EP I Creatinine Equation (2020) [facility] deOrdered By: Tiara Alston on 09-08-2024 Glucose [Mass/Vol] 142 mg/dL High 74-106 [facility] Comment on above: MANAGEMENT OF PATIEN T CARE PER NURSING PROTOCOL Hematocrit Auto (Bld) [Volum e fraction]Ordered By: Tiara Alston on 09-08-2024 Hematocrit (Bld) [Volume fraction] 43.7 % 40-54 [facility] Hemoglobin measurementOrdere d By: Tiara Alston on 09-08-2024 Hemoglobin (Bld) [Mass/Vol] 14.1 g/dL 13.0-16.5 [facility] Immature granulocytes/100 WB C Auto (Bld)Ordered By: Tiara Alston on 09-08-2024 Immature granulocytes/100 WBC (Bld) 0.700 % 0.0-0.9 [facility] Comment on above: IG% - Immature Granu locytes (promyelocytes, myelocytes and metamyelocytes) > 1% indicates that a LEFT SHIFT is Present. L499.0042on 09-08-2024 Trop T High Sen < 6 Normal <=22 [facility] Comment on above: Performed By: #### L 499.0042 ####[facility] [address] [place], [address] L499.0043on 09-08-2024 Trop T High Sen Normal <=22 [facility] Comment on above: Result Comment: Canc elled via OM: Order cancelled - Patient discharged Performed By: #### L 499.0043 ####[facility] [address] [place], [place], [address] L501.4021on 09-08-2024 Trop T High Sen 6 ng/L Normal <=22 [facility] Comment on above: Performed By: #### L 501.4021 ####[facility] [address] [place], [place], [address] MCV (mean corpuscular volume ) determinationOrdered By: Tiara Alston on 09-08-2024 MCV (RBC) [Entitic vol] 83.1 fL 80-[address] [facility] Mean corpuscular hemoglobin (MCH) determinationOrdered By: Tiara Alston on 09-08-2024 MCH (RBC) [Entitic mass] 26.8 pg Low 27.0-32.0 [facility] Mean corpuscular hemoglobin concentration (MCHC) determinationOrdered By: Tiara Alston on 09-08-2024 MCHC (RBC) [Mass/Vol] 32.3 g/dL 32-36 [facility] Mean platelet volume determi nationOrdered By: Tiara Alston on 09-08-2024 Platelet mean volume (Bld) [Entitic vol] 9.2 fL 6.2-12.0 [facility] Monocyte percentageOrdered B y: Tiara Alston on 09-08-2024 Monocytes/100 WBC (Bld) 13.8 % High 0-[address] [facility] Neutrophil percentageOrdered By: Tiara Alston on 09-08-2024 Neutrophils/100 WBC (Bld) 65.0 % 47-70 [facility] Nucleated red blood cell per centageOrdered By: Tiara Alston on 09-08-2024 Nucleated RBC/100 WBC (Bld) [Ratio] 0 % 0-5 [facility] Platelet countOrdered By: Jaun Alston on 09-08-2024 Platelets (Bld) [#/Vol] 189 10*3/uL 150-450 [facility] Potassium measurement (mass/ volume)Ordered By: Tiara Alston on 09-08-2024 Potassium (Unsp spec) [Mass/Vol] 4.3 mmol/L 3.3-5.1 [facility] RBC Auto (Bld) [#/Vol]Ordere d By: Tiara Alston on 09-08-2024 RBC (Bld) [#/Vol] 5.26 10*6/uL 4.6-6.2 [facility] Serum creatinine measurement (mass/volume)Ordered By: Tiara Alston on 09-08-2024 Creatinine [Mass/Vol] 1.00 mg/dL 0.70-1.20 [facility] Serum glucose measurement (m ass/volume)Ordered By: Tiara Alston on 09-08-2024 Glucose [Mass/Vol] 109 mg/dL High 70-99 [facility] Serum or plasma calcium mt urement (mass/volume)Ordered By: Tiara Alston on 09-08-2024 Calcium [Mass/Vol] 9.6 mg/dL 7.6-11.0 [facility] Serum or plasma urea nitroge n measurement (mass/volume)Ordered By: Tiara Alston on 09-08-2024 Urea nitrogen [Mass/Vol] 24 mg/dL High 4-19 [facility] Sodium levelOrdered By: Velia Alston on 09-08-2024 Sodium [Moles/Vol] 141 mmol/L 133-145 [facility] Troponin T.cardiac [Mass/vol ume] in Serum or Plasma by High sensitivity methodOrdered By: Tiara Alston on 09-08-2024 Troponin T.cardiac High sensitivity method [Mass/Vol] < 6 ng/L <22 [facility] Troponin T.cardiac High sensitivity method [Mass/Vol] 6 ng/L <22 [facility] White blood cell (WBC) count Ordered By: Tiara Alston on 09-08-2024 WBC (Bld) [#/Vol] 5.6 10*3/uL 4.4-11.0 [facility] Absolute lymphocyte countOrd ered By: Fredis Moon on 09-07-2024 Lymphocytes Auto (Unsp spec) [#/Vol] 1.28 10*3/uL 0.83-4.51 [facility] Absolute neutrophil countOrd ered By: Fredis Moon on 09-07-2024 Neutrophils (Bld) [#/Vol] 4.3 10*3/uL 2.0-7.7 [facility] Anion gap in Serum or Plasma Ordered By: Fredis Red on 09-07-2024 Anion gap [Moles/Vol] 14 mmol/L 5-15 [facility] Automated lymphocyte count a s percentage of total leukocytesOrdered By: Fredis Red on 09-07-2024 Lymphocytes/100 WBC Auto (Unsp spec) 19.0 % - [facility] BUN/creatinine ratioOrdered By: Fredis Moon on 09-07-2024 Urea nitrogen/Creatinine [Mass ratio] 25.8 mg/mg High 10- [facility] Basophil percentageOrdered B y: Fredis Red on 09-07-2024 Basophils/100 WBC (Bld) 0.7 % 0-[address] [facility] Bilirubin, totalOrdered By: Fredis Red on 09-07-2024 Bilirubin [Mass/Vol] 0.27 mg/dL 0.00-1.30 [facility] CBC W/Diff, Automatedon 08-22 Absolute Lymph 1.28 X10 3/uL Normal 0.83-4.51 [facility] Comment on above: Performed By: #### L 506.1001, L501.9985, L100.0100, L500.4050, L500.4100, L501.9520 ####[facility] [address] [place], [address] Absolute Neut 4.3 X10 3/uL Normal 2.0-7.7 [facility] Comment on above: Performed By: #### L 506.1001, L501.9985, L100.0100, L500.4050, L500.4100, L501.9520 ####[facility] [address] [place], [address] Basophils/100 WBC (Bld) 0.7 % Normal 0-[address] [facility] Comment on above: Performed By: #### L 506.1001, L501.9985, L100.0100, L500.4050, L500.4100, L501.9520 ####[facility] [address] [place], [address] Eosinophils/100 WBC (Bld) 1.9 % Normal 0-5 [facility] Comment on above: Performed By: #### L 506.1001, L501.9985, L100.0100, L500.4050, L500.4100, L501.9520 ####[facility] [address] [place], [address] Erythrocyte distribution width (RBC) [Ratio] 14.8 % High 11.6-14.6 [facility] Comment on above: Performed By: #### L 506.1001, L501.9985, L100.0100, L500.4050, L500.4100, L501.9520 ####[facility] [address] [place], [address] Hematocrit (Bld) [Volume fraction] 41.1 % Normal 40-54 [facility] Comment on above: Performed By: #### L 506.1001, L501.9985, L100.0100, L500.4050, L500.4100, L501.9520 ####[facility] [address] [place], [address] Hemoglobin (Bld) [Mass/Vol] 13.4 g/dL Normal 13.0-16.5 [facility] Comment on above: Performed By: #### L 506.1001, L501.9985, L100.0100, L500.4050, L500.4100, L501.9520 ####[facility] [address] [place], [address] IG% 0.600 Normal 0.0-0.9 [facility] Comment on above: Result Comment: IG% - Immature Granulocytes (promyelocytes, myelocytes andmetamyelocytes) > 1% indicates that a LEFT SHIFT is Present. Performed By: #### L 506.1001, L501.9985, L100.0100, L500.4050, L500.4100, L501.9520 ####[facility] [address] [place], [address] Lymphocytes/100 WBC (Bld) 19.0 % Normal 19-41 [facility] Comment on above: Performed By: #### L 506.1001, L501.9985, L100.0100, L500.4050, L500.4100, L501.9520 ####[facility] [address] [place], [address] MCH (RBC) [Entitic mass] 27.1 pg Normal 27.0-32.0 [facility] Comment on above: Performed By: #### L 506.1001, L501.9985, L100.0100, L500.4050, L500.4100, L501.9520 ####[facility] [address] [place], [address] MCHC (RBC) [Mass/Vol] 32.6 g/dL Normal 32-36 [facility] Comment on above: Performed By: #### L 506.1001, L501.9985, L100.0100, L500.4050, L500.4100, L501.9520 ####[facility] [address] [place], [address] MCV (RBC) [Entitic vol] 83.0 fL Normal 80-[address] [facility] Comment on above: Performed By: #### L 506.1001, L501.9985, L100.0100, L500.4050, L500.4100, L501.9520 ####[facility] [address] [place], [address] Monocytes/100 WBC (Bld) 14.4 % High 0-[address] [facility] Comment on above: Performed By: #### L 506.1001, L501.9985, L100.0100, L500.4050, L500.4100, L501.9520 ####[facility] [address] [place], [address] Neutrophils/100 WBC (Bld) 63.4 % Normal 47-70 [facility] Comment on above: Performed By: #### L 506.1001, L501.9985, L100.0100, L500.4050, L500.4100, L501.9520 ####[facility] [address] [place], [address] Nucleated RBC (Bld) [#/Vol] 0 10*3/uL Normal 0-5 [facility] Comment on above: Performed By: #### L 506.1001, L501.9985, L100.0100, L500.4050, L500.4100, L501.9520 ####[facility] [address] [place], [address] Platelet mean volume (Bld) [Entitic vol] 9.2 fL Normal 6.2-12.0 [facility] Comment on above: Performed By: #### L 506.1001, L501.9985, L100.0100, L500.4050, L500.4100, L501.9520 ####[facility] [address] [place], [address] Platelets (Bld) [#/Vol] 190 10*3/uL Normal 150-450 [facility] Comment on above: Performed By: #### L 506.1001, L501.9985, L100.0100, L500.4050, L500.4100, L501.9520 ####[facility] [address] [place], [address] RBC (Bld) [#/Vol] 4.95 10*6/uL Normal 4.6-6.2 [facility] Comment on above: Performed By: #### L 506.1001, L501.9985, L100.0100, L500.4050, L500.4100, L501.9520 ####[facility] [address] [place], [place], [address] RDW SD 44.4 fl High 35.1-43.9 [facility] Comment on above: Performed By: #### L 506.1001, L501.9985, L100.0100, L500.4050, L500.4100, L501.9520 ####[facility] [address] [place], [place], [address] WBC (Bld) [#/Vol] 6.8 10*3/uL Normal 4.4-11.0 [facility] Comment on above: Performed By: #### L 506.1001, L501.9985, L100.0100, L500.4050, L500.4100, L501.9520 ####[facility] [address] [facility] [place], [place], [id number] Calculated very low density lipoprotein (VLDL) cholesterol measurementOrdered By: Fredis Moon on 09-07-2024 Calculated very low density lipoprotein (VLDL) cholesterol measurement 36 mg/dL 5-40 [facility] Carbon dioxide, total [Moles /volume] in Central venous bloodOrdered By: Fredis Moon on 09-07-2024 CO2 [Moles/Vol] 23.8 mmol/L 21.0-32.0 [facility] Chloride assayOrdered By: Mir Moon on 09-07-2024 Chloride [Moles/Vol] 104 mmol/L 98-108 [facility] Comprehensive Metabolic Prof ilon 09-07-2024 Albumin [Mass/Vol] 4.0 g/dL Normal 3.4-4.8 [facility] Comment on above: Performed By: #### L 506.1001, L501.9985, L100.0100, L500.4050, L500.4100, L501.9520 ####[facility] [address] [place], [address] Albumin/Globulin [Mass ratio] 1.5 {ratio} Normal 0.9-2.4 [facility] Comment on above: Performed By: #### L 506.1001, L501.9985, L100.0100, L500.4050, L500.4100, L501.9520 ####[facility] [address] [place], [address] ALK PHOS 93 U/L Normal 40-129 [facility] Comment on above: Performed By: #### L 506.1001, L501.9985, L100.0100, L500.4050, L500.4100, L501.9520 ####[facility] [address] [place], [address] ALT [Catalytic activity/Vol] U/L Normal <=46 [facility] Comment on above: Performed By: #### L 506.1001, L501.9985, L100.0100, L500.4050, L500.4100, L501.9520 ####[facility] [address] [place], [address] AST [Catalytic activity/Vol] 19 U/L Normal <=37 [facility] Comment on above: Result Comment: Hemo lysis present, Results??could be affected.?? Performed By: #### L 506.1001, L501.9985, L100.0100, L500.4050, L500.4100, L501.9520 ####[facility] [address] [place], [address] Bilirubin [Mass/Vol] 0.27 mg/dL Normal 0.00-1.30 [facility] Comment on above: Performed By: #### L 506.1001, L501.9985, L100.0100, L500.4050, L500.4100, L501.9520 ####[facility] [address] [place], [address] BUN/CRE 25.8 RATIO High 10-20 [facility] Comment on above: Performed By: #### L 506.1001, L501.9985, L100.0100, L500.4050, L500.4100, L501.9520 ####[facility] [address] [place], [address] Calcium [Mass/Vol] 9.3 mg/dL Normal 7.6-11.0 [facility] Comment on above: Performed By: #### L 506.1001, L501.9985, L100.0100, L500.4050, L500.4100, L501.9520 ####[facility] [address] [place], [address] Chloride [Moles/Vol] 104 mmol/L Normal 98-108 [facility] Comment on above: Performed By: #### L 506.1001, L501.9985, L100.0100, L500.4050, L500.4100, L501.9520 ####[facility] [address] [place], [address] CO2 [Moles/Vol] 23.8 mmol/L Normal 21.0-32.0 [facility] Comment on above: Performed By: #### L 506.1001, L501.9985, L100.0100, L500.4050, L500.4100, L501.9520 ####[facility] [address] [place], [address] Creatinine [Mass/Vol] 0.97 mg/dL Normal 0.70-1.20 [facility] Comment on above: Performed By: #### L 506.1001, L501.9985, L100.0100, L500.4050, L500.4100, L501.9520 ####[facility] [address] [place], [address] GAP 14 Normal 5-15 [facility] Comment on above: Performed By: #### L 506.1001, L501.9985, L100.0100, L500.4050, L500.4100, L501.9520 ####[facility] [address] [place], [address] GFR/1.73 sq M.predicted among non-blacks MDRD (S/P/Bld) [Vol rate/Area] 78 mL/min/{1.73_m2} Normal >60 [facility] Comment on above: Result Comment: mL/m in/1.73m2 CKD-EPI Creatinine Equation (2020) Performed By: #### L 506.1001, L501.9985, L100.0100, L500.4050, L500.4100, L501.9520 ####[facility] [address] [place], [address] Globulin (S) [Mass/Vol] 2.7 g/dL Normal 2.2-4.[address] [facility] Comment on above: Performed By: #### L 506.1001, L501.9985, L100.0100, L500.4050, L500.4100, L501.9520 ####[facility] [address] [place], [address] Glucose [Mass/Vol] 107 mg/dL High 70-99 [facility] Comment on above: Performed By: #### L 506.1001, L501.9985, L100.0100, L500.4050, L500.4100, L501.9520 ####[facility] [address] [place], [address] Potassium [Moles/Vol] 4.6 mmol/L Normal 3.3-5.1 [facility] Comment on above: Result Comment: Hemo lysis present, Results??could be affected.?? Performed By: #### L 506.1001, L501.9985, L100.0100, L500.4050, L500.4100, L501.9520 ####[facility] [address] [place], [address] Sodium [Moles/Vol] 141 mmol/L Normal 133-145 [facility] Comment on above: Performed By: #### L 506.1001, L501.9985, L100.0100, L500.4050, L500.4100, L501.9520 ####[facility] [address] [place], [address] T PROT 6.7 g/dL Normal 5.9-8.4 [facility] Comment on above: Performed By: #### L 506.1001, L501.9985, L100.0100, L500.4050, L500.4100, L501.9520 ####[facility] [address] [place], [address] Urea nitrogen [Mass/Vol] 25 mg/dL High 4-19 [facility] Comment on above: Performed By: #### L 506.1001, L501.9985, L100.0100, L500.4050, L500.4100, L501.9520 ####[facility] [address] [place], [address] Eosinophil percentageOrdered By: Fredis oMon on 09-07-2024 Eosinophils/100 WBC (Bld) 1.9 % 0-5 [facility] Erythrocyte distribution wid th ratioOrdered By: Fredis Moon on 09-07-2024 Erythrocyte distribution width (RBC) [Ratio] 14.8 % High 11.6-14.6 [facility] Erythrocyte distribution wid th standard deviationOrdered By: Fredis Red on 09-07-2024 Erythrocyte distribution width (RBC) [Ratio] 44.4 fl High 35.1-43.9 [facility] Glomerular filtration rate ( GFR) estimation/1.73 sq m using serum, plasma, or whole bOrdered By: Fredis Moon on 09-07-2024 GFR/1.73 sq M.predicted among non-blacks MDRD (S/P/Bld) [Vol rate/Area] 78 mL/min/{1.73_m2} >60 [facility] Comment on above: mL/min/1.73m2 CKD-EP I Creatinine Equation (2020) Hematocrit Auto (Bld) [Volum e fraction]Ordered By: Fredis Moon on 09-07-2024 Hematocrit (Bld) [Volume fraction] 41.1 % 40-54 [facility] Hemoglobin A1con 09-07-2024 HbA1c (Bld) [Mass fraction] 7.1 % High <=5.6 [facility] Comment on above: Result Comment: Norm al < 5.7 % Prediabetic 5.7 - 6.4 % Diabetic >or= 6.5 % Please note range changes. Performed By: #### L 506.1001, L501.9985, L100.0100, L500.4050, L500.4100, L501.9520 ####[facility] [address] [place], [address] Hemoglobin A1c percentageOrd ered By: Fredis Moon on 09-07-2024 HbA1c (Bld) [Mass fraction] 7.1 % High <5.7 [facility] Comment on above: Normal < 5.7 % Predi abetic 5.7 - 6.4 % Diabetic >or= 6.5 % Please note range changes. Hemoglobin measurementOrdere d By: Fredis Moon on 09-07-2024 Hemoglobin (Bld) [Mass/Vol] 13.4 g/dL 13.0-16.5 [facility] Immature granulocytes/100 WB C Auto (Bld)Ordered By: Fredis Moon on 09-07-2024 Immature granulocytes/100 WBC (Bld) 0.600 % 0.0-0.9 [facility] Comment on above: IG% - Immature Granu locytes (promyelocytes, myelocytes and metamyelocytes) > 1% indicates that a LEFT SHIFT is Present. LDL calc ser/plasOrdered By: Fredis Moon on 09-07-2024 Cholesterol in LDL [Mass/Vol] 37 mg/dL [facility] Comment on above: Ocptbryxca=416-460 m g/dL & Higher Ffwk=382 mg/dL or greater Laboratory - Chemistry and C hemistry - challengeOrdered By: Fredis Moon on 09-07-2024 AST [Catalytic activity/Vol] 19 U/L <38 [facility] Comment on above: Hemolysis present, R esults could be affected. Lipid Profileon 09-07-2024 CHOL:HDL 2.71 Normal [facility] Comment on above: Performed By: #### L 506.1001, L501.9985, L100.0100, L500.4050, L500.4100, L501.9520 ####[facility] [address], [address] Cholesterol [Mass/Vol] 115 mg/dL Normal <=200 [facility] Comment on above: Result Comment: Chol esterol level, Desirable <200 mg/dLBorderline high cholesterol 200-239 mg/dLHigh cholesterol >=240 mg/dLRecommendations of the NCEP Adult Treatment Panel for thefollowing risk-cutoff thresholds for the [place] Americanpulation. Performed By: #### L 506.1001, L501.9985, L100.0100, L500.4050, L500.4100, L501.9520 ####[facility] [address] [place], [address] Cholesterol in HDL [Mass/Vol] 42 mg/dL Normal [facility] Comment on above: Result Comment: Rianna onal Cholesterol Education Program (NCEP) guidelines:<40 mg/dL: Low HDL-cholesterol (major risk factor for CHD)>= 60 mg/dL: High HDL-cholesterol (negative risk factor forCHD)HDL-cholesterol is affected by a number of factors, e.g.smoking, exercise, hormones, sex and age. Performed By: #### L 506.1001, L501.9985, L100.0100, L500.4050, L500.4100, L501.9520 ####[facility] [address] [place], [address] Cholesterol in LDL [Mass/Vol] 37 mg/dL Normal [facility] Comment on above: Result Comment: Bord qheiuq=952-518 mg/dL Higher Yeeu=781 mg/dL or greater Performed By: #### L 506.1001, L501.9985, L100.0100, L500.4050, L500.4100, L501.9520 ####[facility] [address] [place], [place], [id number] Cholesterol in VLDL [Mass/Vol] 36 mg/dL Normal 5-40 [facility] Comment on above: Performed By: #### L 506.1001, L501.9985, L100.0100, L500.4050, L500.4100, L501.9520 ####[facility] [address] [place], [address] Triglyceride [Mass/Vol] 179 mg/dL Normal [facility] Comment on above: Result Comment: The drugs N-Acetylcysteine and Metamizole may falselydepress this assay.Normal range: <150 mg/dLBorderline High: 150-199 mg/dLHigh: 200-499 mg/dLVery High: >500 mg/dL Performed By: #### L 506.1001, L501.9985, L100.0100, L500.4050, L500.4100, L501.9520 ####[facility] [address] [place], [address] MCV (mean corpuscular volume ) determinationOrdered By: Fredis Moon on 09-07-2024 MCV (RBC) [Entitic vol] 83.0 fL 80-[address] [facility] Mean corpuscular hemoglobin (MCH) determinationOrdered By: Fredis Moon on 09-07-2024 MCH (RBC) [Entitic mass] 27.1 pg 27.0-32.0 [facility] Mean corpuscular hemoglobin concentration (MCHC) determinationOrdered By: Fredis Moon on 09-07-2024 MCHC (RBC) [Mass/Vol] 32.6 g/dL 32-36 [facility] Mean platelet volume determi nationOrdered By: Fredis Moon on 09-07-2024 Platelet mean volume (Bld) [Entitic vol] 9.2 fL 6.2-12.0 [facility] Monocyte percentageOrdered B y: Fredis Moon on 09-07-2024 Monocytes/100 WBC (Bld) 14.4 % High 0-[address] [facility] Neutrophil percentageOrdered By: Fredis Moon on 09-07-2024 Neutrophils/100 WBC (Bld) 63.4 % 47-70 [facility] Nucleated red blood cell per centageOrdered By: Fredis Moon on 09-07-2024 Nucleated RBC/100 WBC (Bld) [Ratio] 0 % 0-5 [facility] Platelet countOrdered By: Mir oMon on 09-07-2024 Platelets (Bld) [#/Vol] 190 10*3/uL 150-450 [facility] Potassium measurement (mass/ volume)Ordered By: Fredis Moon on 09-07-2024 Potassium (Unsp spec) [Mass/Vol] 4.6 mmol/L 3.3-5.1 [facility] Comment on above: Hemolysis present, R esults could be affected. RBC Auto (Bld) [#/Vol]Ordere d By: Fredis Moon on 09-07-2024 RBC (Bld) [#/Vol] 4.95 10*6/uL 4.6-6.2 [facility] Screening total cholesterol/ high density lipoprotein (HDL) cholesterol ratioOrdered By: Fredis Moon on 09-07-2024 Cholesterol.total/Choles terol in HDL [Mass ratio] 2.71 {ratio} [facility] Serum creatinine measurement (mass/volume)Ordered By: Fredis Moon on 09-07-2024 Creatinine [Mass/Vol] 0.97 mg/dL 0.70-1.20 [facility] Serum globulin measurementOr dered By: Fredis Moon 09-07-2024 Globulin (S) [Mass/Vol] 2.7 g/dL 2.2-4.[address] [facility] Serum glucose measurement (m ass/volume)Ordered By: Fredis Red 09-07-2024 Glucose [Mass/Vol] 107 mg/dL High 70-99 [facility] Serum or plasma alanine hector otransferase (ALT) measurementOrdered By: Fredis Red 09-07-2024 ALT [Catalytic activity/Vol] U/L <47 [facility] Serum or plasma albumin mt urement (mass/volume)Ordered By: Fredis Red 09-07-2024 Albumin [Mass/Vol] 4.0 g/dL 3.4-4.8 [facility] Serum or plasma albumin/glob ulin mass ratioOrdered By: Fredis Red 09-07-2024 Albumin/Globulin [Mass ratio] 1.5 {ratio} 0.9-2.4 [facility] Serum or plasma alkaline kristyn sphatase measurementOrdered By: Fredis Red 09-07-2024 ALP [Catalytic activity/Vol] 93 U/L 40-129 [facility] Serum or plasma calcium mt urement (mass/volume)Ordered By: Fredis Red 09-07-2024 Calcium [Mass/Vol] 9.3 mg/dL 7.6-11.0 [facility] Serum or plasma cholesterol in HDL measurement (mass/volume)Ordered By: Fredis Red 09-07-2024 Cholesterol in HDL [Mass/Vol] 42 mg/dL >40 [facility] Comment on above: National Cholesterol Education Program (NCEP) guidelines:<40 mg/dL: Low HDL-cholesterol (major risk factor for CHD)>= 60 mg/dL: High HDL-cholesterol (negative risk factor for CHD)HDL-cholesterol is affected by a number of factors, e.g. smoking, exercise, hormones, sex and age. Serum or plasma cholesterol measurement (mass/volume)Ordered By: Fredis Red 09-07-2024 Cholesterol [Mass/Vol] 115 mg/dL <201 [facility] Comment on above: Cholesterol level, D esirable <200 mg/dLBorderline high cholesterol 200-239 mg/dLHigh cholesterol >=240 mg/dLRecommendations of the NCEP Adult Treatment Panel for the following risk-cutoff thresholds for the [place] population. Serum or plasma urea nitroge n measurement (mass/volume)Ordered By: Fredis Moon on 09-07-2024 Urea nitrogen [Mass/Vol] 25 mg/dL High 4-19 [facility] Sodium levelOrdered By: Fredis Moon on 09-07-2024 Sodium [Moles/Vol] 141 mmol/L 133-145 [facility] TSH DL <= 0.005 mIU/L QnOrde red By: Fredis Moon on 09-07-2024 TSH Qn 2.070 uIU/mL 0.300-4.200 [facility] Thyroid Stim Hormone (TSH)on 09-07-2024 TSH 2.070 uIU/mL Normal 0.300-4.200 [facility] Comment on above: Performed By: #### L 506.1001, L501.9985, L100.0100, L500.4050, L500.4100, L501.9520 ####[facility] [address] [place], [place], [address] Total proteinOrdered By: Fredis Moon on 09-07-2024 Protein [Mass/Vol] 6.7 g/dL 5.9-8.4 [facility] Triglycerides measurementOrd ered By: Fredis Moon on 09-07-2024 Triglyceride [Mass/Vol] 179 mg/dL <[address] [facility] Comment on above: The drugs N-Acetylcy steine and Metamizole may falsely depress this assay. Normal range: <150 mg/dLBorderline High: 150-199 mg/dLHigh: 200-499 mg/dLVery High: >500 mg/dL Vitamin D,25 Hydroxyon 09-07 Vitamin D 25-OH 39.6 ng/mL Normal 30-100 [facility] Comment on above: Result Comment: Katie min D StatusDeficiency: <20 ng/mL (50nmol/L)Insufficiency: 20-30 ng/mL (50-75 nmol/L)Sufficiency: 30-100 ng/mL (75-250 nmol/L)Toxicity: >100 ng/mL (>250 nmol/L) Performed By: #### L 506.1001, L501.9985, L100.0100, L500.4050, L500.4100, L501.9520 ####[facility] [address] [place], [address] White blood cell (WBC) count Ordered By: Fredis Moon on 09-07-2024 WBC (Bld) [#/Vol] 6.8 10*3/uL 4.4-11.0 [facility] No Panel InformationOrdered By: Abel Raymond on 09-04-2024 [facility] [address] [place] [address] CR - Individual Treatment Plan MR#: [id number] Acct: [id number] Name: Joaquin THRASHER Rep #:[id number] : 1940 84 From: Abel Swanson BS, RVT PCP: Dr. Fredis Moon MD DOS: Exercise - Initial Assessment Physician Prescribed Exercise Modalities: Treadmill, SciFit Stepper and SciFit Lateral [place] Nutrition - Initial Assessment Weight Mgt (Other Care) Height: 5 ft 6 in Weight:: 207 lb BMI: 33.4 Core - Initial Assessment Hypertension Resting Blood Pressure:: 146/60 [place] [employer] Hypertension Guidelines Psychosocial - Initial [...] Modalities: Treadmill, SciFit Stepper and SciFit Lateral [place] Exercise - 60-day Assessment Visit Date of Eval: 09/01/24 Session #:: 22 Physician Prescribed Exercise Modalities: Treadmill, SciFit Stepper and SciFit Lateral [place] Frequency: 3x/week for 12 weeks [36 sessions] [...] Modalities: Treadmill, SciFit Stepper and SciFit 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 [facility] No Panel InformationOrdered By: Abel Raymond on 08-06-2024 [facility] Card[facility] [address] [place] [address] CR - Individual Treatment Plan MR#: [id number] Acct: [id number] Name: Joaquin THRASHER Rep #:[id number] : 1940 84 From: Abel Swanson BS, RVT PCP: Dr. Fredis Moon MD DOS: Exercise - Initial Assessment Visit Session #:: 12 Physician Prescribed Exercise Modalities: Treadmill, SciFit Stepper, SciFit Pro-II Ergometer and SciFit Lateral [place] Nutrition - Initial Assessment Weight Mgt (Other [...] Stepper, SciFit Pro-II Ergometer and SciFit Lateral [place] Frequency: 3x/week for 12 weeks [36 sessions] [...] Stepper, SciFit Pro-II Ergometer and SciFit Lateral Tieing Machine Operator Exercise - 90-day Assessment Physician Prescribed Exercise Modalities: Treadmill, SciFit Stepper, SciFit Pro-II Ergometer and SciFit Lateral [place] Exercise - Final/Discharge Physician Prescribed Exercise Modalities: Treadmill, SciFit Stepper, SciFit Pro-II Ergometer and SciFit Lateral [place] Nutrition - 30-Day Assessment Program Goals Nutrition Program Goals Patient has diagnosis of Hyperlipidemia (ICD E78)?: Yes Visit Date of Eval: 08/03/24 Session #:: 12 Cholesterol/Lipids (Other Core Measures) Determine presence & major risk factors that modify LDL goal: Hypertension or hypertensive medication, Low HDL cholesterol <40 mg/dL*, Family history of prematur (more content not included)... [facility] Progress Noteon 07-31-2024 Progress Note 07/31/24 1443 [...] were you homeless or living in a care home (including now)? N Transportation Needs In the [...] than 3 How often do you attend caodaism or denominational services? More than 4 Do you belong to any clubs or organizations such as caodaism groups, unions, fraternal or athletic groups, or [...] from your doctor or pharmacy? Never Normal [facility] Progress Noteon 07-24-2024 Progress Note 07/24/24 1421 BPCI Late Drop? Program late drop? No BPCI Outreach Assessment Selection Which outreach assessment are you completing? 60 Day BPCI - 60 Day Outreach Did patient answer phone call? No Do you have any concerns with your medication(s)? No Any complications with post discharge services? No (Patient has been going to Cardiac Rehab ([place]) for 3 weeks now) Any concerns with your DME equipment? No Any questions about your condition you are unsure about that I can help clarify? Yes (Discussed progress made and patient going to Cardiac Rehab. Discussed medications, medical bills- emailed patient HCAP application.) Normal [facility] Absolute lymphocyte countOrd ered By: Mi Hernandez on 07-06-2024 Lymphocytes Auto (Unsp spec) [#/Vol] 1.27 10*3/uL 0.83-4.51 [facility] Absolute neutrophil countOrd ered By: Mi Hernandez on 07-06-2024 Neutrophils (Bld) [#/Vol] 3.9 10*3/uL 2.0-7.7 [facility] Anion gap in Serum or Plasma Ordered By: Samson Elder on 07-06-2024 Anion gap [Moles/Vol] 11 mmol/L 5- [facility] Automated lymphocyte count a s percentage of total leukocytesOrdered By: Mi Hernandez on 07-06-2024 Lymphocytes/100 WBC Auto (Unsp spec) 20.6 % 19-41 [facility] BUN/creatinine ratioOrdered By: Samson Elder on 07-06-2024 Urea nitrogen/Creatinine [Mass ratio] 25.8 mg/mg High 10-20 [facility] Basophil percentageOrdered B y: Mi Hernandez on 07-06-2024 Basophils/100 WBC (Bld) 1.0 % 0-[address] [facility] Bilirubin, totalOrdered By: Samson Elder on 07-06-2024 Bilirubin [Mass/Vol] 0.32 mg/dL 0.00-1.30 [facility] CBC W/Diff, Automatedon 05- Absolute Lymph 1.27 X10 3/uL Normal 0.83-4.51 [facility] Comment on above: Performed By: #### L 100.0100 ####[facility] [address] [place], [address] Absolute Neut 3.9 X10 3/uL Normal 2.0-7.7 [facility] Comment on above: Performed By: #### L 100.0100 ####[facility] [address] [place], [address] Basophils/100 WBC (Bld) 1.0 % Normal 0-[address] [facility] Comment on above: Performed By: #### L 100.0100 ####[facility] [address] [place], [address] Eosinophils/100 WBC (Bld) 1.8 % Normal 0-5 [facility] Comment on above: Performed By: #### L 100.0100 ####[facility] [address] [place], [address] Erythrocyte distribution width (RBC) [Ratio] 14.4 % Normal 11.6-14.6 [facility] Comment on above: Performed By: #### L 100.0100 ####[facility] [address] [place], [address] Hematocrit (Bld) [Volume fraction] 37.5 % Low 40-54 [facility] Comment on above: Performed By: #### L 100.0100 ####[facility] [address] [place], [address] Hemoglobin (Bld) [Mass/Vol] 12.0 g/dL Low 13.0-16.5 [facility] Comment on above: Performed By: #### L 100.0100 ####[facility] [address] [place], [address] IG% 0.600 Normal 0.0-0.9 [facility] Comment on above: Result Comment: IG% - Immature Granulocytes (promyelocytes, myelocytes andmetamyelocytes) > 1% indicates that a LEFT SHIFT is Present. Performed By: #### L 100.0100 ####[facility] [address] [place], [address] Lymphocytes/100 WBC (Bld) 20.6 % Normal 19-41 [facility] Comment on above: Performed By: #### L 100.0100 ####[facility] [address] [place], [address] MCH (RBC) [Entitic mass] 27.6 pg Normal 27.0-32.0 [facility] Comment on above: Performed By: #### L 100.0100 ####[facility] [address] [place], [address] MCHC (RBC) [Mass/Vol] 32.0 g/dL Normal 32-36 [facility] Comment on above: Performed By: #### L 100.0100 ####[facility] [address] [place], [address] MCV (RBC) [Entitic vol] 86.4 fL Normal 80-[address] [facility] Comment on above: Performed By: #### L 100.0100 ####[facility] [address] [place], [address] Monocytes/100 WBC (Bld) 13.3 % High 0-[address] [facility] Comment on above: Performed By: #### L 100.0100 ####[facility] [address] [place], [address] Neutrophils/100 WBC (Bld) 62.7 % Normal 47-70 [facility] Comment on above: Performed By: #### L 100.0100 ####[facility] [address] [place], [address] Nucleated RBC (Bld) [#/Vol] 0 10*3/uL Normal 0-5 [facility] Comment on above: Performed By: #### L 100.0100 ####[facility] [address] [place], [address] Platelet mean volume (Bld) [Entitic vol] 9.5 fL Normal 6.2-12.0 [facility] Comment on above: Performed By: #### L 100.0100 ####[facility] [address] [place], [address] Platelets (Bld) [#/Vol] 192 10*3/uL Normal 150-450 [facility] Comment on above: Performed By: #### L 100.0100 ####[facility] [address] [place], [address] RBC (Bld) [#/Vol] 4.34 10*6/uL Low 4.6-6.2 [facility] Comment on above: Performed By: #### L 100.0100 ####[facility] [address] [place], [address] RDW SD 45.3 fl High 35.1-43.9 [facility] Comment on above: Performed By: #### L 100.0100 ####[facility] [address] [place], [address] WBC (Bld) [#/Vol] 6.2 10*3/uL Normal 4.4-11.0 [facility] Comment on above: Performed By: #### L 100.0100 ####[facility] [address] [place], [address] Calculated very low density lipoprotein (VLDL) cholesterol measurementOrdered By: Samson Elder on 07-06-2024 Calculated very low density lipoprotein (VLDL) cholesterol measurement 21 mg/dL 5-40 [facility] Carbon dioxide, total [Moles /volume] in Central venous bloodOrdered By: Samson Elder on 07-06-2024 CO2 [Moles/Vol] 24.2 mmol/L 21.0-32.0 [facility] Cardiology Visit Reporton Cardiology Visit Report Normal [facility] Chloride assayOrdered By: Mamadou Elder on 07-06-2024 Chloride [Moles/Vol] 106 mmol/L 98-108 [facility] Comprehensive Metabolic Prof ilon 07-06-2024 Albumin [Mass/Vol] 3.9 g/dL Normal 3.4-4.8 [facility] Comment on above: Performed By: #### L 500.4100, L500.4050 ####[facility] [address] [place], [address] Albumin/Globulin [Mass ratio] 1.4 {ratio} Normal 0.9-2.4 [facility] Comment on above: Performed By: #### L 500.4100, L500.4050 ####[facility] [address] [place], [address] ALK PHOS 117 U/L Normal 40-129 [facility] Comment on above: Performed By: #### L 500.4100, L500.4050 ####[facility] [address] [place], [address] ALT [Catalytic activity/Vol] U/L Normal <=46 [facility] Comment on above: Performed By: #### L 500.4100, L500.4050 ####[facility] [address] [place], [address] AST [Catalytic activity/Vol] 17 U/L Normal <=37 [facility] Comment on above: Performed By: #### L 500.4100, L500.4050 ####[facility] [address] [place], [address] Bilirubin [Mass/Vol] 0.32 mg/dL Normal 0.00-1.30 [facility] Comment on above: Performed By: #### L 500.4100, L500.4050 ####[facility] [address] [place], [address] BUN/CRE 25.8 RATIO High 10-20 [facility] Comment on above: Performed By: #### L 500.4100, L500.4050 ####[facility] [address] [place], [address] Calcium [Mass/Vol] 9.4 mg/dL Normal 7.6-11.0 [facility] Comment on above: Performed By: #### L 500.4100, L500.4050 ####[facility] [address] [place], [address] Chloride [Moles/Vol] 106 mmol/L Normal 98-108 [facility] Comment on above: Performed By: #### L 500.4100, L500.4050 ####[facility] [address] [place], [address] CO2 [Moles/Vol] 24.2 mmol/L Normal 21.0-32.0 [facility] Comment on above: Performed By: #### L 500.4100, L500.4050 ####[facility] [address] [place], [address] Creatinine [Mass/Vol] 0.98 mg/dL Normal 0.70-1.20 [facility] Comment on above: Performed By: #### L 500.4100, L500.4050 ####[facility] [address] [place], [address] GAP 11 Normal 5-15 [facility] Comment on above: Performed By: #### L 500.4100, L500.4050 ####[facility] [address] [place], [address] GFR/1.73 sq M.predicted among non-blacks MDRD (S/P/Bld) [Vol rate/Area] 77 mL/min/{1.73_m2} Normal >60 [facility] Comment on above: Result Comment: mL/m in/1.73m2 CKD-EPI Creatinine Equation (2020) Performed By: #### L 500.4100, L500.4050 ####[facility] [address] [place], [address] Globulin (S) [Mass/Vol] 2.7 g/dL Normal 2.2-4.2 [facility] Comment on above: Performed By: #### L 500.4100, L500.4050 ####[facility] [address] [place], [address] Glucose [Mass/Vol] 173 mg/dL High 70-99 [facility] Comment on above: Performed By: #### L 500.4100, L500.4050 ####[facility] [address] [place], [address] Potassium [Moles/Vol] 4.3 mmol/L Normal 3.3-5.1 [facility] Comment on above: Performed By: #### L 500.4100, L500.4050 ####[facility] [address] [place], [address] Sodium [Moles/Vol] 141 mmol/L Normal 133-145 [facility] Comment on above: Performed By: #### L 500.4100, L500.4050 ####[facility] [address] [place], [address] T PROT 6.6 g/dL Normal 5.9-8.4 [facility] Comment on above: Performed By: #### L 500.4100, L500.4050 ####[facility] [address] [place], [place], [address] Urea nitrogen [Mass/Vol] 25 mg/dL High 4-19 [facility] Comment on above: Performed By: #### L 500.4100, L500.4050 ####[facility] [address] [place], [place], [address] Eosinophil percentageOrdered By: Mi Hernandez on 07-06-2024 Eosinophils/100 WBC (Bld) 1.8 % 0-5 [facility] Erythrocyte distribution wid th ratioOrdered By: Mi Hernandez on 07-06-2024 Erythrocyte distribution width (RBC) [Ratio] 14.4 % 11.6-14.6 [facility] Erythrocyte distribution wid th standard deviationOrdered By: Mi Hernandez on 07-06-2024 Erythrocyte distribution width (RBC) [Ratio] 45.3 fl High 35.1-43.9 [facility] Glomerular filtration rate ( GFR) estimation/1.73 sq m using serum, plasma, or whole bOrdered By: Samson Elder on 07-06-2024 GFR/1.73 sq M.predicted among non-blacks MDRD (S/P/Bld) [Vol rate/Area] 77 mL/min/{1.73_m2} >60 [facility] Comment on above: mL/min/1.73m2 CKD-EP I Creatinine Equation (2020) Hematocrit Auto (Bld) [Volum e fraction]Ordered By: Mi Hernandez on 07-06-2024 Hematocrit (Bld) [Volume fraction] 37.5 % Low 40-54 [facility] Hemoglobin measurementOrdere d By: Mi Hernandez on 07-06-2024 Hemoglobin (Bld) [Mass/Vol] 12.0 g/dL Low 13.0-16.5 [facility] Immature granulocytes/100 WB C Auto (Bld)Ordered By: Mi Hernandez on 07-06-2024 Immature granulocytes/100 WBC (Bld) 0.600 % 0.0-0.9 [facility] Comment on above: IG% - Immature Granu locytes (promyelocytes, myelocytes and metamyelocytes) > 1% indicates that a LEFT SHIFT is Present. LDL calc ser/plasOrdered By: Samson Elder on 07-06-2024 Cholesterol in LDL [Mass/Vol] 46 mg/dL [facility] Comment on above: Eqslnwrhdi=069-404 m g/dL & Higher Rjsa=786 mg/dL or greater Laboratory - Chemistry and C hemistry - challengeOrdered By: Samson Elder on 07-06-2024 AST [Catalytic activity/Vol] 17 U/L <38 [facility] Lipid Profileon 07-06-2024 CHOL:HDL 2.73 Normal [facility] Comment on above: Performed By: #### L 500.4100, L500.4050 ####[facility] [address] [place], [address] Cholesterol [Mass/Vol] 106 mg/dL Normal <=200 [facility] Comment on above: Result Comment: Chol esterol level, Desirable <200 mg/dLBorderline high cholesterol 200-239 mg/dLHigh cholesterol >=240 mg/dLRecommendations of the NCEP Adult Treatment Panel for thefollowing risk-cutoff thresholds for the [place] [facility]. Performed By: #### L 500.4100, L500.4050 ####[facility] [address] [place], [address] Cholesterol in HDL [Mass/Vol] 39 mg/dL Low [facility] Comment on above: Result Comment: Rianna onal Cholesterol Education Program (NCEP) guidelines:<40 mg/dL: Low HDL-cholesterol (major risk factor for CHD)>= 60 mg/dL: High HDL-cholesterol (negative risk factor forCHD)HDL-cholesterol is affected by a number of factors, e.g.smoking, exercise, hormones, sex and age. Performed By: #### L 500.4100, L500.4050 ####[facility] [address] [place], [address] Cholesterol in LDL [Mass/Vol] 46 mg/dL Normal [facility] Comment on above: Result Comment: Bord jmgwjj=838-847 mg/dL Higher Ltjd=271 mg/dL or greater Performed By: #### L 500.4100, L500.4050 ####[facility] [address] [place], [address] Cholesterol in VLDL [Mass/Vol] 21 mg/dL Normal 5-40 [facility] Comment on above: Performed By: #### L 500.4100, L500.4050 ####[facility] [address] [place], [address] Triglyceride [Mass/Vol] 107 mg/dL Normal [facility] Comment on above: Result Comment: The drugs N-Acetylcysteine and Metamizole may falselydepress this assay.Normal range: <150 mg/dLBorderline High: 150-199 mg/dLHigh: 200-499 mg/dLVery High: >500 mg/dL Performed By: #### L 500.4100, L500.4050 ####[facility] [address] [place], [address] MCV (mean corpuscular volume ) determinationOrdered By: Mi Hernandez on 07-06-2024 MCV (RBC) [Entitic vol] 86.4 fL 80-[address] [facility] Mean corpuscular hemoglobin (MCH) determinationOrdered By: Mi Hernandez on 07-06-2024 MCH (RBC) [Entitic mass] 27.6 pg 27.0-32.0 [facility] Mean corpuscular hemoglobin concentration (MCHC) determinationOrdered By: Mi Hernandez on 07-06-2024 MCHC (RBC) [Mass/Vol] 32.0 g/dL 32-36 [facility] Mean platelet volume determi nationOrdered By: Mi Hernandez on 07-06-2024 Platelet mean volume (Bld) [Entitic vol] 9.5 fL 6.2-12.0 [facility] Monocyte percentageOrdered B y: Mi Hernandez on 07-06-2024 Monocytes/100 WBC (Bld) 13.3 % High 0-[address] [facility] Neutrophil percentageOrdered By: Mi Hernandez on 07-06-2024 Neutrophils/100 WBC (Bld) 62.7 % 47-70 [facility] Nucleated red blood cell per centageOrdered By: Mi Hernandez on 07-06-2024 Nucleated RBC/100 WBC (Bld) [Ratio] 0 % 0-5 [facility] Platelet countOrdered By: Jersey Hernandez on 07-06-2024 Platelets (Bld) [#/Vol] 192 10*3/uL 150-450 [facility] Potassium measurement (mass/ volume)Ordered By: Samson Elder on 07-06-2024 Potassium (Unsp spec) [Mass/Vol] 4.3 mmol/L 3.3-5.1 [facility] RBC Auto (Bld) [#/Vol]Ordere d By: Mi Hernandez on 07-06-2024 RBC (Bld) [#/Vol] 4.34 10*6/uL Low 4.6-6.2 [facility] Screening total cholesterol/ high density lipoprotein (HDL) cholesterol ratioOrdered By: Samson Elder on 07-06-2024 Cholesterol.total/Choles terol in HDL [Mass ratio] 2.73 {ratio} [facility] Serum creatinine measurement (mass/volume)Ordered By: Samson Elder on 07-06-2024 Creatinine [Mass/Vol] 0.98 mg/dL 0.70-1.20 [facility] Serum globulin measurementOr dered By: Samson Elder on 07-06-2024 Globulin (S) [Mass/Vol] 2.7 g/dL 2.2-4.[address] [facility] Serum glucose measurement (m ass/volume)Ordered By: Samson Elder on 07-06-2024 Glucose [Mass/Vol] 173 mg/dL High 70-99 [facility] Serum or plasma alanine hector otransferase (ALT) measurementOrdered By: Samson Elder on 07-06-2024 ALT [Catalytic activity/Vol] U/L <47 [facility] Serum or plasma albumin mt urement (mass/volume)Ordered By: Samson Elder on 07-06-2024 Albumin [Mass/Vol] 3.9 g/dL 3.4-4.8 [facility] Serum or plasma albumin/glob ulin mass ratioOrdered By: Samson Elder on 07-06-2024 Albumin/Globulin [Mass ratio] 1.4 {ratio} 0.9-2.4 [facility] Serum or plasma alkaline kristyn sphatase measurementOrdered By: Samson Elder on 07-06-2024 ALP [Catalytic activity/Vol] 117 U/L 40-129 [facility] Serum or plasma calcium mt urement (mass/volume)Ordered By: Samson Elder on 07-06-2024 Calcium [Mass/Vol] 9.4 mg/dL 7.6-11.0 [facility] Serum or plasma cholesterol in HDL measurement (mass/volume)Ordered By: Samson Elder on 07-06-2024 Cholesterol in HDL [Mass/Vol] 39 mg/dL Low >40 [facility] Comment on above: National Cholesterol Education Program (NCEP) guidelines:<40 mg/dL: Low HDL-cholesterol (major risk factor for CHD)>= 60 mg/dL: High HDL-cholesterol (negative risk factor for CHD)HDL-cholesterol is affected by a number of factors, e.g. smoking, exercise, hormones, sex and age. Serum or plasma cholesterol measurement (mass/volume)Ordered By: Samson Elder on 07-06-2024 Cholesterol [Mass/Vol] 106 mg/dL <201 [facility] Comment on above: Cholesterol level, D esirable <200 mg/dLBorderline high cholesterol 200-239 mg/dLHigh cholesterol >=240 mg/dLRecommendations of the NCEP Adult Treatment Panel for the following risk-cutoff thresholds for the [place] population. Serum or plasma urea nitroge n measurement (mass/volume)Ordered By: Samson Elder on 07-06-2024 Urea nitrogen [Mass/Vol] 25 mg/dL High 4-19 [facility] Sodium levelOrdered By: Nito Elder on 07-06-2024 Sodium [Moles/Vol] 141 mmol/L 133-145 [facility] Total proteinOrdered By: Agustin Elder on 07-06-2024 Protein [Mass/Vol] 6.6 g/dL 5.9-8.4 [facility] Triglycerides measurementOrd ered By: Samson Elder on 07-06-2024 Triglyceride [Mass/Vol] 107 mg/dL <199 [facility] Comment on above: The drugs N-Acetylcy steine and Metamizole may falsely depress this assay. Normal range: <150 mg/dLBorderline High: 150-199 mg/dLHigh: 200-499 mg/dLVery High: >500 mg/dL White blood cell (WBC) count Ordered By: Mi Hernandez on 07-06-2024 WBC (Bld) [#/Vol] 6.2 10*3/uL 4.4-11.0 [facility] Progress Noteon 07-05-2024 Progress Note [facility] Medical Group: CT SURGE[facility] [address] [facility] [address] Dept: [phone] Dept Loc: [phone] Visit type: Established patient Reason for Visit: [...] circumstances: Recently seen in person, lives in [place] . The patient has been advised of [...] stated that they are currently in the [facility]. If the patient is a minor, permission [...] GDMT for CABG. Able to discharge to [facility] on POD#06. 05/25/24: Spoke with patient and [...] leg res (more content not included)... Normal [facility] CR - History AND Physicalon 07-04-2024 CR - History & Physical Normal [facility] Progress Noteon 06-30-2024 Progress Note 06/30/2024: Reached out to CCU to ask for assistance reaching MaryA lice. Shared my contact information with request for [...] outreach. [facility]. BPCI call made to Mr. Marcus Thrasher. Introduced self and reviewed role on [facility]'s BPCI team. Verified Marcus is able and agreeable to speak today. Assessed for needs or concerns. Marcus shared he lives in [place] with his . He identified having a [...] Formal supports: none at this time Insurance: Medicare/[employer] Advance Directives: not on file MyChart: active [...] GDMT for CABG. Able to discharge to [facility] on POD#06. 06/08/2024: Referral received from LIZZIE Brand with the BPCI program, with request to update the social determinants of health questionnaire and assess for any social work needs. Outreach scheduled. Normal [facility] Basic Metabolic Profile (BMP )on 06-27-2024 BUN Normal 4-19 [facility] Comment on above: Result Comment: Canc elled via OM: Order Changed Performed By: #### L 500.2500, L100.0100 ####[facility] [address] [place], [address] BUN/CRE Normal 10-20 [facility] Comment on above: Result Comment: Canc elled via OM: Order Changed Performed By: #### L 500.2500, L100.0100 ####[facility] [address] [place], [address] Calcium Normal 7.6-11.0 [facility] Comment on above: Result Comment: Canc elled via OM: Order Changed Performed By: #### L 500.2500, L100.0100 ####[facility] [address] [place], [address] CL Normal 98-108 [facility] Comment on above: Result Comment: Canc elled via OM: Order Changed Performed By: #### L 500.2500, L100.0100 ####[facility] [address] [place], [address] CO2 Normal 21.0-32.0 [facility] Comment on above: Result Comment: Canc elled via OM: Order Changed Performed By: #### L 500.2500, L100.0100 ####[facility] [address] [place], [address] CREAT,SERUM Normal 0.70-1.20 [facility] Comment on above: Result Comment: Canc elled via OM: Order Changed Performed By: #### L 500.2500, L100.0100 ####[facility] [address] [place], [address] eGFR Normal >60 [facility] Comment on above: Result Comment: Canc elled via OM: Order Changed Performed By: #### L 500.2500, L100.0100 ####[facility] [address] [place], [address] GAP Normal 5-15 [facility] Comment on above: Result Comment: Canc elled via OM: Order Changed Performed By: #### L 500.2500, L100.0100 ####[facility] [address] [place], [address] GLU Normal 70-99 [facility] Comment on above: Result Comment: Canc elled via OM: Order Changed Performed By: #### L 500.2500, L100.0100 ####[facility] [address] [place], [address] Potassium Normal 3.3-5.1 [facility] Comment on above: Result Comment: Canc elled via OM: Order Changed Performed By: #### L 500.2500, L100.0100 ####[facility] [address] [place], [address] Basic Metabolic Profile (BMP) Normal 133-145 [facility] Comment on above: Result Comment: Canc elled via OM: Order Changed Performed By: #### L 500.2500, L100.0100 ####[facility] [address] [place], [address] CBC W/Diff, Automatedon 05-0 -2024 Absolute Neut Normal 2.0-7.7 [facility] Comment on above: Result Comment: Canc elled via OM: Order Changed Performed By: #### L 500.2500, L100.0100 ####[facility] [address] [place], [address] HCT Normal 40-54 [facility] Comment on above: Result Comment: Canc elled via OM: Order Changed Performed By: #### L 500.2500, L100.0100 ####[facility] [address] [place], [address] HGB Normal 13.0-16.5 [facility] Comment on above: Result Comment: Canc elled via OM: Order Changed Performed By: #### L 500.2500, L100.0100 ####[facility] [address] [place], [address] MCH Normal 27.0-32.0 [facility] Comment on above: Result Comment: Canc elled via OM: Order Changed Performed By: #### L 500.2500, L100.0100 ####[facility] [address] [place], [address] MCHC Normal 32-36 [facility] Comment on above: Result Comment: Canc elled via OM: Order Changed Performed By: #### L 500.2500, L100.0100 ####[facility] [address] [place], [address] MCV Normal 80-94 [facility] Comment on above: Result Comment: Canc elled via OM: Order Changed Performed By: #### L 500.2500, L100.0100 ####[facility] [address] [place], [address] NEUT% Normal 47-70 [facility] Comment on above: Result Comment: Canc elled via OM: Order Changed Performed By: #### L 500.2500, L100.0100 ####[facility] [address] [place], [address] PLT Normal 150-450 [facility] Comment on above: Result Comment: Canc elled via OM: Order Changed Performed By: #### L 500.2500, L100.0100 ####[facility] [address] [place], [address] RBC Normal 4.6-6.2 [facility] Comment on above: Result Comment: Canc elled via OM: Order Changed Performed By: #### L 500.2500, L100.0100 ####[facility] [address] [place], [address] RDW CV Normal 11.6-14.6 [facility] Comment on above: Result Comment: Canc elled via OM: Order Changed Performed By: #### L 500.2500, L100.0100 ####[facility] [address] [place], [address] RDW SD Normal 35.1-43.9 [facility] Comment on above: Result Comment: Canc elled via OM: Order Changed Performed By: #### L 500.2500, L100.0100 ####[facility] [address] [place], [address] WBC Normal 4.4-11.0 [facility] Comment on above: Result Comment: Canc elled via OM: Order Changed Performed By: #### L 500.2500, L100.0100 ####[facility] [address] [place], [address] Progress Noteon 06-27-2024 Progress Note 06/27/24 1011 [...] up appointments, Cardiac Rehab, Medications, and diabetes) [facility] Progress Note BPCI PRN call ADMIT DATE: 05/10/2024 DISCHARGE DATE: 05/16/2024 SURGERY: 05/10/24: s/p CABGx3 (PADILLA-LAD, RSVG-OM1, RSVG-PDA with endarterectomy), JUDY, RAYMOND with Dr. Velasco [facility]: FELICIA, Parkinson's disease, CAD, HTN, DM2 Called [phone] and spoke to the patient. The patient is active with home care: PT, OT, SN-home care through [facility] services. Patient stated overall he is doing well. Went over follow up appts with the patient: 5/14 Cardiothoracic Surgery Patient stated he seen PCP Patient asked about restrictions post surgery- patient will discuss with Miguel Angel at office visit on 07/05/24. [place] [facility]-patient heard from them and he [...] day outreach to check on the patient. [facility] 36on 06-23-2024 36 [facility] Progress Noteon 06-23-2024 Progress Note 06/23/2024: Received call from Marcus asking for assistance reaching out to staff member in Environmental Services who offered kindness when he was in the Cardiac Critical Care unit. Will reach out to [facility]. Support provided. Marcus shared appreciation for his level of recovery. Follow up outreach scheduled with goal of completing the SDOH assessment. 06/22/2024 Reviewed EMR prior to today's outreach. Noted Mr. Thrasher is home from [place] [facility]. Plan for Cardiac Rehab. BPCI call made to Mr. Marcus Thrasher. Introduced self and reviewed role on [facility]'s BPCI team. Verified Marcus is able and agreeable to speak today. Assessed for needs or concerns. Marcus shared he lives in [place] with his . He identified having a [...] GDMT for CABG. Able to discharge to [facility] on POD#06. 06/08/2024: Referral received from LIZZIE Brand with the BPCI program, with request to update the social determinants of health questionnaire and assess for any social work needs. Outreach scheduled. Normal [facility] Office Visiton 06-22-2024 Follow-up visit [id number] Farhana Thrasher 1940 M Date Provider Department Center 06/22/2024 [id number] ANGEL MARRERO [facility] CT None Family History Problem Relation Age of Onset Stroke Mother COPD Father Coronary artery disease Father Coronary artery disease Brother Heart attack Brother Family Status - Relation Status Age at Mother Father Brother Level of Service:52508 MA POSTOP FOLLOW UP VISIT RELATED TO ORIGINAL PX Reason for Visit and Comments: Post-op [483] Normal [facility] Progress Noteon 06-22-2024 Progress Note [facility] Medical Group: CT SURGEONS [address] [place] [address] Dept: [phone] Dept Loc: [phone] Visit type: Established patient Reason for Visit: Post-op Assessment and Plan 1. S/P CABG (coronary artery bypass graft) - [facility] Cardiac/Pulmonary Rehab 05/10/24: s/p CABGx3 (PADILLA-LAD, [...] insulin glargine-lixisenatide (more content not included)... Normal [facility] Basic Metabolic Profile (BMP )on 06-20-2024 BUN Normal 4-19 [facility] Comment on above: Result Comment: Canc elled via OM: Order Changed Performed By: #### L 100.0100, L500.2500 ####[facility] [address] [place], [address] BUN/CRE Normal 10-20 [facility] Comment on above: Result Comment: Canc elled via OM: Order Changed Performed By: #### L 100.0100, L500.2500 ####[facility] [address] [place], [address] Calcium Normal 7.6-11.0 [facility] Comment on above: Result Comment: Canc elled via OM: Order Changed Performed By: #### L 100.0100, L500.2500 ####[facility] [address] [place], [address] CL Normal 98-108 [facility] Comment on above: Result Comment: Canc elled via OM: Order Changed Performed By: #### L 100.0100, L500.2500 ####[facility] [address] [place], [address] CO2 Normal 21.0-32.0 [facility] Comment on above: Result Comment: Canc elled via OM: Order Changed Performed By: #### L 100.0100, L500.2500 ####[facility] [address] [place], [address] CREAT,SERUM Normal 0.70-1.20 [facility] Comment on above: Result Comment: Canc elled via OM: Order Changed Performed By: #### L 100.0100, L500.2500 ####[facility] [address] [place], [address] eGFR Normal >60 [facility] Comment on above: Result Comment: Canc elled via OM: Order Changed Performed By: #### L 100.0100, L500.2500 ####[facility] [address] [place], [address] GAP Normal 5-15 [facility] Comment on above: Result Comment: Canc elled via OM: Order Changed Performed By: #### L 100.0100, L500.2500 ####[facility] [address] [place], [address] GLU Normal 70-99 [facility] Comment on above: Result Comment: Canc elled via OM: Order Changed Performed By: #### L 100.0100, L500.2500 ####[facility] [address] [place], [address] Potassium Normal 3.3-5.1 [facility] Comment on above: Result Comment: Canc elled via OM: Order Changed Performed By: #### L 100.0100, L500.2500 ####[facility] [address] [place], [address] Basic Metabolic Profile (BMP) Normal 133-145 [facility] Comment on above: Result Comment: Canc elled via OM: Order Changed Performed By: #### L 100.0100, L500.2500 ####[facility] [address] [place], [address] CBC W/Diff, Automatedon 04-2 Absolute Neut Normal 2.0-7.7 [facility] Comment on above: Result Comment: Canc elled via OM: Order Changed Performed By: #### L 100.0100, L500.2500 ####[facility] [address] [place], [address] HCT Normal 40-54 [facility] Comment on above: Result Comment: Canc elled via OM: Order Changed Performed By: #### L 100.0100, L500.2500 ####[facility] [address] [place], [address] HGB Normal 13.0-16.5 [facility] Comment on above: Result Comment: Canc elled via OM: Order Changed Performed By: #### L 100.0100, L500.2500 ####[facility] [address] [place], [address] MCH Normal 27.0-32.0 [facility] Comment on above: Result Comment: Canc elled via OM: Order Changed Performed By: #### L 100.0100, L500.2500 ####[facility] [address] [place], [address] MCHC Normal 32-36 [facility] Comment on above: Result Comment: Canc elled via OM: Order Changed Performed By: #### L 100.0100, L500.2500 ####[facility] [address] [place], [address] MCV Normal 80-94 [facility] Comment on above: Result Comment: Canc elled via OM: Order Changed Performed By: #### L 100.0100, L500.2500 ####[facility] [address] [place], [address] NEUT% Normal 47-70 [facility] Comment on above: Result Comment: Canc elled via OM: Order Changed Performed By: #### L 100.0100, L500.2500 ####[facility] [address] [place], [address] PLT Normal 150-450 [facility] Comment on above: Result Comment: Canc elled via OM: Order Changed Performed By: #### L 100.0100, L500.2500 ####[facility] [address] [place], [address] RBC Normal 4.6-6.2 [facility] Comment on above: Result Comment: Canc elled via OM: Order Changed Performed By: #### L 100.0100, L500.2500 ####[facility] [address] [place], [address] RDW CV Normal 11.6-14.6 [facility] Comment on above: Result Comment: Canc elled via OM: Order Changed Performed By: #### L 100.0100, L500.2500 ####[facility] [address] [place], [address] RDW SD Normal 35.1-43.9 [facility] Comment on above: Result Comment: Canc elled via OM: Order Changed Performed By: #### L 100.0100, L500.2500 ####[facility] [address] [place], [address] WBC Normal 4.4-11.0 [facility] Comment on above: Result Comment: Canc elled via OM: Order Changed Performed By: #### L 100.0100, L500.2500 ####[facility] [facility] [address] [place], [address] Absolute lymphocyte countOrd ered By: Fredis Moon on 06-14-2024 Lymphocytes Auto (Unsp spec) [#/Vol] 1.16 10*3/uL 0.83-4.51 [facility] Absolute neutrophil countOrd ered By: Fredis Moon on 06-14-2024 Neutrophils (Bld) [#/Vol] 3.5 10*3/uL 2.0-7.7 [facility] Anion gap in Serum or Plasma Ordered By: Fredis Moon on 06-14-2024 Anion gap [Moles/Vol] 10 mmol/L 07-06 [facility] Automated lymphocyte count a s percentage of total leukocytesOrdered By: Fredis Moon on 06-14-2024 Lymphocytes/100 WBC Auto (Unsp spec) 20.5 % [facility] BUN/creatinine ratioOrdered By: Fredis Moon on 06-14-2024 Urea nitrogen/Creatinine [Mass ratio] 19.7 mg/mg 12-11 [facility] Basic Metabolic Profile (BMP )on 06-14-2024 BUN/CRE 19.7 RATIO Normal 12-11 [facility] Comment on above: Performed By: #### L 500.2500, L100.0100 ####[facility] [address] [place], [address] Calcium [Mass/Vol] 8.9 mg/dL Normal 7.6-11.0 [facility] Comment on above: Performed By: #### L 500.2500, L100.0100 ####[facility] [address] [place], [address] Chloride [Moles/Vol] 104 mmol/L Normal 98-108 [facility] Comment on above: Performed By: #### L 500.2500, L100.0100 ####[facility] [address] [place], [address] CO2 [Moles/Vol] 24.5 mmol/L Normal 21.0-32.0 [facility] Comment on above: Performed By: #### L 500.2500, L100.0100 ####[facility] [address] [place], [address] Creatinine [Mass/Vol] 0.91 mg/dL Normal 0.70-1.20 [facility] Comment on above: Performed By: #### L 500.2500, L100.0100 ####[facility] [address] [place], [address] ECRCL 66.65 ml/min Normal 50-250 [facility] Comment on above: Performed By: #### L 500.2500, L100.0100 ####[facility] [address] [place], [address] GAP 10 Normal 5-15 [facility] Comment on above: Performed By: #### L 500.2500, L100.0100 ####[facility] [address] [place], [address] GFR/1.73 sq M.predicted among non-blacks MDRD (S/P/Bld) [Vol rate/Area] 84 mL/min/{1.73_m2} Normal >60 [facility] Comment on above: Result Comment: mL/m in/1.73m2 CKD-EPI Creatinine Equation (2020) Performed By: #### L 500.2500, L100.0100 ####[facility] [address] [place], [address] Glucose [Mass/Vol] 171 mg/dL High 70-99 [facility] Comment on above: Performed By: #### L 500.2500, L100.0100 ####[facility] [address] [place], [address] Potassium [Moles/Vol] 4.4 mmol/L Normal 3.3-5.1 [facility] Comment on above: Performed By: #### L 500.2500, L100.0100 ####[facility] [address] [place], [address] Sodium [Moles/Vol] 139 mmol/L Normal 133-145 [facility] Comment on above: Performed By: #### L 500.2500, L100.0100 ####[facility] [address] [place], [address] Urea nitrogen [Mass/Vol] 18 mg/dL Normal 4-19 [facility] Comment on above: Performed By: #### L 500.2500, L100.0100 ####[facility] [address] [place], [address] Basophil percentageOrdered B y: Fredis Moon on 06-14-2024 Basophils/100 WBC (Bld) 0.9 % 0-[address] [facility] Bedside Glucoseon 06-14-2024 FINGERSTICK GLU 171 mg/dL High 74-106 [facility] Comment on above: Result Comment: NIKI ROMERO OF PATIENT CARE PER NURSING PROTOCOL Performed By: #### L 501.080 ####[facility] [address] [place], [address] CBC W/Diff, Automatedon 05-24 Absolute Lymph 1.16 X10 3/uL Normal 0.83-4.51 [facility] Comment on above: Performed By: #### L 500.2500, L100.0100 ####[facility] [address] [place], [address] Absolute Neut 3.5 X10 3/uL Normal 2.0-7.7 [facility] Comment on above: Performed By: #### L 500.2500, L100.0100 ####[facility] [address] [place], [address] Basophils/100 WBC (Bld) 0.9 % Normal 0-[address] [facility] Comment on above: Performed By: #### L 500.2500, L100.0100 ####[facility] [address] [place], [address] Eosinophils/100 WBC (Bld) 2.8 % Normal 0-5 [facility] Comment on above: Performed By: #### L 500.2500, L100.0100 ####[facility] [address] [place], [address] Erythrocyte distribution width (RBC) [Ratio] 14.4 % Normal 11.6-14.6 [facility] Comment on above: Performed By: #### L 500.2500, L100.0100 ####[facility] [address] [place], [address] Hematocrit (Bld) [Volume fraction] 33.5 % Low 40-54 [facility] Comment on above: Performed By: #### L 500.2500, L100.0100 ####[facility] [address] [place], [address] Hemoglobin (Bld) [Mass/Vol] 10.9 g/dL Low 13.0-16.5 [facility] Comment on above: Performed By: #### L 500.2500, L100.0100 ####[facility] [address] [place], [address] IG% 0.700 Normal 0.0-0.9 [facility] Comment on above: Result Comment: IG% - Immature Granulocytes (promyelocytes, myelocytes andmetamyelocytes) > 1% indicates that a LEFT SHIFT is Present. Performed By: #### L 500.2500, L100.0100 ####[facility] [address] [place], [address] Lymphocytes/100 WBC (Bld) 20.5 % Normal 19-41 [facility] Comment on above: Performed By: #### L 500.2500, L100.0100 ####[facility] [address] [place], [address] MCH (RBC) [Entitic mass] 28.5 pg Normal 27.0-32.0 [facility] Comment on above: Performed By: #### L 500.2500, L100.0100 ####[facility] [address] [place], [address] MCHC (RBC) [Mass/Vol] 32.5 g/dL Normal 32-36 [facility] Comment on above: Performed By: #### L 500.2500, L100.0100 ####[facility] [address] [place], [address] MCV (RBC) [Entitic vol] 87.5 fL Normal 80-[address] [facility] Comment on above: Performed By: #### L 500.2500, L100.0100 ####[facility] [address] [place], [address] Monocytes/100 WBC (Bld) 14.1 % High 0-10 [facility] Comment on above: Performed By: #### L 500.2500, L100.0100 ####[facility] [address] [place], [address] Neutrophils/100 WBC (Bld) 61.0 % Normal 47-70 [facility] Comment on above: Performed By: #### L 500.2500, L100.0100 ####[facility] [address] [place], [address] Nucleated RBC (Bld) [#/Vol] 0 10*3/uL Normal 0-5 [facility] Comment on above: Performed By: #### L 500.2500, L100.0100 ####[facility] [address] [place], [address] Platelet mean volume (Bld) [Entitic vol] 10.0 fL Normal 6.2-12.0 [facility] Comment on above: Performed By: #### L 500.2500, L100.0100 ####[facility] [address] [place], [address] Platelets (Bld) [#/Vol] 166 10*3/uL Normal 150-450 [facility] Comment on above: Performed By: #### L 500.2500, L100.0100 ####[facility] [address] [place], [address] RBC (Bld) [#/Vol] 3.83 10*6/uL Low 4.6-6.2 [facility] Comment on above: Performed By: #### L 500.2500, L100.0100 ####[facility] [address] [place], [address] RDW SD 46.1 fl High 35.1-43.9 [facility] Comment on above: Performed By: #### L 500.2500, L100.0100 ####[facility] [address] [place], [address] WBC (Bld) [#/Vol] 5.7 10*3/uL Normal 4.4-11.0 [facility] Comment on above: Performed By: #### L 500.2500, L100.0100 ####[facility] [address] [place], [address] Carbon dioxide, total [Moles /volume] in Central venous bloodOrdered By: Fredis Moon 06-14-2024 CO2 [Moles/Vol] 24.5 mmol/L 21.0-32.0 [facility] Chloride assayOrdered By: Mir Moon on 06-14-2024 Chloride [Moles/Vol] 104 mmol/L 98-108 [facility] Eosinophil percentageOrdered By: Fredis Moon 06-14-2024 Eosinophils/100 WBC (Bld) 2.8 % 0-5 [facility] Erythrocyte distribution wid th ratioOrdered By: Fredis Moon 06-14-2024 Erythrocyte distribution width (RBC) [Ratio] 14.4 % 11.6-14.6 [facility] Erythrocyte distribution wid th standard deviationOrdered By: Fredis Moon on 06-14-2024 Erythrocyte distribution width (RBC) [Ratio] 46.1 fl High 35.1-43.9 [facility] Glomerular filtration rate ( GFR) estimation/1.73 sq m using serum, plasma, or whole bOrdered By: Fredis Moon on 06-14-2024 GFR/1.73 sq M.predicted among non-blacks MDRD (S/P/Bld) [Vol rate/Area] 84 mL/min/{1.73_m2} >60 [facility] Comment on above: mL/min/1.73m2 CKD-EP I Creatinine Equation (2020) Glucose measurement at bedsi deOrdered By: Fredis Moon on 06-14-2024 Glucose [Mass/Vol] 171 mg/dL High 74-106 [facility] Comment on above: MANAGEMENT OF PATIEN T CARE PER NURSING PROTOCOL Hematocrit Auto (Bld) [Volum e fraction]Ordered By: Fredis Moon on 06-14-2024 Hematocrit (Bld) [Volume fraction] 33.5 % Low 40-54 [facility] Hemoglobin measurementOrdere d By: Fredis Moon 06-14-2024 Hemoglobin (Bld) [Mass/Vol] 10.9 g/dL Low 13.0-16.5 [facility] Immature granulocytes/100 WB C Auto (Bld)Ordered By: Fredis Mono 06-14-2024 Immature granulocytes/100 WBC (Bld) 0.700 % 0.0-0.9 [facility] Comment on above: IG% - Immature Granu locytes (promyelocytes, myelocytes and metamyelocytes) > 1% indicates that a LEFT SHIFT is Present. MCV (mean corpuscular volume ) determinationOrdered By: Fredis Moon 06-14-2024 MCV (RBC) [Entitic vol] 87.5 fL 80-[address] [facility] Mean corpuscular hemoglobin (MCH) determinationOrdered By: Fredis Moon 06-14-2024 MCH (RBC) [Entitic mass] 28.5 pg 27.0-32.0 [facility] Mean corpuscular hemoglobin concentration (MCHC) determinationOrdered By: Fredis Moon 06-14-2024 MCHC (RBC) [Mass/Vol] 32.5 g/dL 32-36 [facility] Mean platelet volume determi nationOrdered By: Fredis Moon 06-14-2024 Platelet mean volume (Bld) [Entitic vol] 10.0 fL 6.2-12.0 [facility] Monocyte percentageOrdered B y: Fredis Moon on 06-14-2024 Monocytes/100 WBC (Bld) 14.1 % High 0-[address] [facility] Neutrophil percentageOrdered By: Fredis Moon on 06-14-2024 Neutrophils/100 WBC (Bld) 61.0 % 47-70 [facility] Nucleated red blood cell per centageOrdered By: Fredis Moon on 06-14-2024 Nucleated RBC/100 WBC (Bld) [Ratio] 0 % 0-5 [facility] Platelet countOrdered By: Mir Moon on 06-14-2024 Platelets (Bld) [#/Vol] 166 10*3/uL 150-450 [facility] Potassium measurement (mass/ volume)Ordered By: Fredis Moon on 06-14-2024 Potassium (Unsp spec) [Mass/Vol] 4.4 mmol/L 3.3-5.1 [facility] RBC Auto (Bld) [#/Vol]Ordere d By: Fredis Moon on 06-14-2024 RBC (Bld) [#/Vol] 3.83 10*6/uL Low 4.6-6.2 [facility] Serum creatinine measurement (mass/volume)Ordered By: Fredis Moon 06-14-2024 Creatinine [Mass/Vol] 0.91 mg/dL 0.70-1.20 [facility] Serum glucose measurement (m ass/volume)Ordered By: Fredis Moon on 06-14-2024 Glucose [Mass/Vol] 171 mg/dL High 70-99 [facility] Serum or plasma calcium mt urement (mass/volume)Ordered By: Fredis Moon 06-14-2024 Calcium [Mass/Vol] 8.9 mg/dL 7.6-11.0 [facility] Serum or plasma urea nitroge n measurement (mass/volume)Ordered By: Fredis Moon 06-14-2024 Urea nitrogen [Mass/Vol] 18 mg/dL 4-19 [facility] Sodium levelOrdered By: Fredis Moon on 06-14-2024 Sodium [Moles/Vol] 139 mmol/L 133-145 [facility] White blood cell (WBC) count Ordered By: Fredis Moon on 06-14-2024 WBC (Bld) [#/Vol] 5.7 10*3/uL 4.4-11.0 [facility] Basic Metabolic Profile (BMP )on 06-13-2024 BUN Normal 4-19 [facility] Comment on above: Result Comment: Canc elled via OM: Order Changed Performed By: #### L 500.2500, L100.0100 ####[facility] [address] [place], [address] BUN/CRE Normal 10-20 [facility] Comment on above: Result Comment: Canc elled via OM: Order Changed Performed By: #### L 500.2500, L100.0100 ####[facility] [address] [place], [address] Calcium Normal 7.6-11.0 [facility] Comment on above: Result Comment: Canc elled via OM: Order Changed Performed By: #### L 500.2500, L100.0100 ####[facility] [address] [place], [address] CL Normal 98-108 [facility] Comment on above: Result Comment: Canc elled via OM: Order Changed Performed By: #### L 500.2500, L100.0100 ####[facility] [address] [place], [address] CO2 Normal 21.0-32.0 [facility] Comment on above: Result Comment: Canc elled via OM: Order Changed Performed By: #### L 500.2500, L100.0100 ####[facility] [address] [place], [address] CREAT,SERUM Normal 0.70-1.20 [facility] Comment on above: Result Comment: Canc elled via OM: Order Changed Performed By: #### L 500.2500, L100.0100 ####[facility] [address] [place], [address] eGFR Normal >60 [facility] Comment on above: Result Comment: Canc elled via OM: Order Changed Performed By: #### L 500.2500, L100.0100 ####[facility] [address] [place], [address] GAP Normal 5-15 [facility] Comment on above: Result Comment: Canc elled via OM: Order Changed Performed By: #### L 500.2500, L100.0100 ####[facility] [address] [place], [address] GLU Normal 70-99 [facility] Comment on above: Result Comment: Canc elled via OM: Order Changed Performed By: #### L 500.2500, L100.0100 ####[facility] [address] [place], [address] Potassium Normal 3.3-5.1 [facility] Comment on above: Result Comment: Canc elled via OM: Order Changed Performed By: #### L 500.2500, L100.0100 ####[facility] [address] [place], [address] Basic Metabolic Profile (BMP) Normal 133-145 [facility] Comment on above: Result Comment: Canc elled via OM: Order Changed Performed By: #### L 500.2500, L100.0100 ####[facility] [address] [place], [address] Bedside Glucoseon 06-13-2024 FINGERSTICK GLU 183 mg/dL High 74-106 [facility] Comment on above: Result Comment: NIKI GEMENT OF PATIENT CARE PER NURSING PROTOCOL Performed By: #### L 501.080 ####[facility] [address] [place], [address] FINGERSTICK GLU 147 mg/dL High 74-106 [facility] Comment on above: Result Comment: NIKI GEMENT OF PATIENT CARE PER NURSING PROTOCOL Performed By: #### L 501.080 ####[facility] [address] [place], [address] FINGERSTICK GLU 214 mg/dL High 74-106 [facility] Comment on above: Result Comment: NIKI GEMENT OF PATIENT CARE PER NURSING PROTOCOL Performed By: #### L 501.080 ####[facility] [address], [address] FINGERSTICK GLU 135 mg/dL High 74-106 [facility] Comment on above: Result Comment: NIKI GEMENT OF PATIENT CARE PER NURSING PROTOCOL Performed By: #### L 501.080 ####[facility] [address] [place], [address] CBC W/Diff, Automatedon - Absolute Neut Normal 2.0-7.7 [facility] Comment on above: Result Comment: Canc elled via OM: Order Changed Performed By: #### L 500.2500, L100.0100 ####[facility] [address] [place], [address] HCT Normal 40-54 [facility] Comment on above: Result Comment: Canc elled via OM: Order Changed Performed By: #### L 500.2500, L100.0100 ####[facility] [address] [place], [address] HGB Normal 13.0-16.5 [facility] Comment on above: Result Comment: Canc elled via OM: Order Changed Performed By: #### L 500.2500, L100.0100 ####[facility] [address] [place], [address] MCH Normal 27.0-32.0 [facility] Comment on above: Result Comment: Canc elled via OM: Order Changed Performed By: #### L 500.2500, L100.0100 ####[facility] [address] [place], [address] MCHC Normal 32-36 [facility] Comment on above: Result Comment: Canc elled via OM: Order Changed Performed By: #### L 500.2500, L100.0100 ####[facility] [address] [place], [address] MCV Normal 80-94 [facility] Comment on above: Result Comment: Canc elled via OM: Order Changed Performed By: #### L 500.2500, L100.0100 ####[facility] [address] [place], [address] NEUT% Normal 47-70 [facility] Comment on above: Result Comment: Canc elled via OM: Order Changed Performed By: #### L 500.2500, L100.0100 ####[facility] [address] [place], [address] PLT Normal 150-450 [facility] Comment on above: Result Comment: Canc elled via OM: Order Changed Performed By: #### L 500.2500, L100.0100 ####[facility] [address] [place], [address] RBC Normal 4.6-6.2 [facility] Comment on above: Result Comment: Canc elled via OM: Order Changed Performed By: #### L 500.2500, L100.0100 ####[facility] [address] [place], [address] RDW CV Normal 11.6-14.6 [facility] Comment on above: Result Comment: Canc elled via OM: Order Changed Performed By: #### L 500.2500, L100.0100 ####[facility] [address] [place], [address] RDW SD Normal 35.1-43.9 [facility] Comment on above: Result Comment: Canc elled via OM: Order Changed Performed By: #### L 500.2500, L100.0100 ####[facility] [address] [place], [address] WBC Normal 4.4-11.0 [facility] Comment on above: Result Comment: Canc elled via OM: Order Changed Performed By: #### L 500.2500, L100.0100 ####[facility] [address] [place], [address] Bedside Glucoseon 06-12-2024 FINGERSTICK GLU 199 mg/dL High 74-106 [facility] Comment on above: Result Comment: NIKI GEMENT OF PATIENT CARE PER NURSING PROTOCOL Performed By: #### L 501.080 ####[facility] [address] [place], [address] FINGERSTICK GLU 107 mg/dL High 74-106 [facility] Comment on above: Result Comment: NIKI GEMENT OF PATIENT CARE PER NURSING PROTOCOL Performed By: #### L 501.080 ####[facility] [address] [place], [address] FINGERSTICK GLU 200 mg/dL High 74-106 [facility] Comment on above: Result Comment: NIKI GEMENT OF PATIENT CARE PER NURSING PROTOCOL Performed By: #### L 501.080 ####[facility] [address] [place], [address] FINGERSTICK GLU 177 mg/dL High 74-106 [facility] Comment on above: Result Comment: NIKI GEMENT OF PATIENT CARE PER NURSING PROTOCOL Performed By: #### L 501.080 ####[facility] [address] [place], [address] Bedside Glucoseon 06-11-2024 FINGERSTICK GLU 221 mg/dL High 74-106 [facility] Comment on above: Result Comment: NIKI GEMENT OF PATIENT CARE PER NURSING PROTOCOL Performed By: #### L 501.080 ####[facility] [address] [place], [address] FINGERSTICK GLU 190 mg/dL High 74-106 [place] [facility] Comment on above: Result Comment: NIKI GEMENT OF PATIENT CARE PER NURSING PROTOCOL Performed By: #### L 501.080 ####[facility] [address] [facility] [address] FINGERSTICK GLU 193 mg/dL High [address] [place] [address] Comment on above: Result Comment: NIKI GEMENT OF PATIENT CARE PER NURSING PROTOCOL Performed By: #### L 501.080 ####[facility] [address] [facility] [address] FINGERSTICK GLU 195 mg/dL High [address] [place] [address] Comment on above: Result Comment: NIKI GEMENT OF PATIENT CARE PER NURSING PROTOCOL Performed By: #### L 501.080 ####[facility] [address] [facility] [address] Bedside Glucoseon 06-10-2024 FINGERSTICK GLU 187 mg/dL High [address] [place] [address] Comment on above: Result Comment: NIKI GEMENT OF PATIENT CARE PER NURSING PROTOCOL Performed By: #### L 501.080 ####[facility] [address] [facility] [address] FINGERSTICK GLU 149 mg/dL High [address] [place] [address] Comment on above: Result Comment: NIKI GEMENT OF PATIENT CARE PER NURSING PROTOCOL Performed By: #### L 501.080 ####[facility] [address] [facility] [address] FINGERSTICK GLU 200 mg/dL High [address] [place] [address] Comment on above: Result Comment: NIKI GEMENT OF PATIENT CARE PER NURSING PROTOCOL Performed By: #### L 501.080 ####[facility] [address] [facility] [address] FINGERSTICK GLU 189 mg/dL High [address] [place] [address] Comment on above: Result Comment: NIKI GEMENT OF PATIENT CARE PER NURSING PROTOCOL Performed By: #### L 501.080 ####[facility] [address] [place], [address] Bedside Glucoseon 06-09-2024 FINGERSTICK GLU 195 mg/dL High -106 [facility] Comment on above: Result Comment: NIKI GEMENT OF PATIENT CARE PER NURSING PROTOCOL Performed By: #### L 501.080 ####[facility] [address] [place] [place], [address] FINGERSTICK GLU 236 mg/dL High [facility]106 [facility] Comment on above: Result Comment: NIKI GEMENT OF PATIENT CARE PER NURSING PROTOCOL Performed By: #### L 501.080 ####[facility] [address] [place], [address] FINGERSTICK GLU 183 mg/dL High [address] [place] [address] Comment on above: Result Comment: NIKI GEMENT OF PATIENT CARE PER NURSING PROTOCOL Performed By: #### L 501.080 ####[facility] [address] [place], [address] FINGERSTICK GLU 178 mg/dL High [facility]106 [facility] Comment on above: Result Comment: NIKI GEMENT OF PATIENT CARE PER NURSING PROTOCOL Performed By: #### L 501.080 ####[facility] [address] [place], [address] Bedside Glucoseon 06-08-2024 FINGERSTICK GLU 241 mg/dL High -106 [facility] Comment on above: Result Comment: NIKI GEMENT OF PATIENT CARE PER NURSING PROTOCOL Performed By: #### L 501.080 ####[facility] [address] [place], [address] FINGERSTICK GLU 172 mg/dL High [address] [place] [address] Comment on above: Result Comment: NIKI GEMENT OF PATIENT CARE PER NURSING PROTOCOL Performed By: #### L 501.080 ####[facility] [address] [place], [address] FINGERSTICK GLU 162 mg/dL High 74-106 [facility] Comment on above: Result Comment: NIKI GEMENT OF PATIENT CARE PER NURSING PROTOCOL Performed By: #### L 501.080 ####[facility] [address] [place], [address] FINGERSTICK GLU 144 mg/dL High [address] [place] [address] Comment on above: Result Comment: NIKI GEMENT OF PATIENT CARE PER NURSING PROTOCOL Performed By: #### L 501.080 ####[facility] [address] [place], [address] [facility] at [facility] deOrdered By: Fredis Moon on 06-08-2024 Bedside Glucose (Misc Panel) 144 mg/dL High -[address] [place] [address] Comment on above: MANAGEMENT OF PATIEN T CARE PER NURSING PROTOCOL Absolute neutrophil countOrd ered By: Fredis Moon on 06-07-2024 Neutrophils (Bld) [#/Vol] 2.9 10*3/uL 2.0-7.7 [facility] Anion gap in Serum or Plasma Ordered By: Fredis Moon on 06-07-2024 Anion gap [Moles/Vol] 11 mmol/L -15 [facility] BUN/creatinine ratioOrdered By: Fredis Moon on 06-07-2024 Urea nitrogen/Creatinine [Mass ratio] 20.8 mg/mg High - [facility] Basic Metabolic Profile (BMP )on 06-07-2024 BUN/CRE 20.8 RATIO High 10-20 [facility] Comment on above: Performed By: #### L 500.2500, L100.0100 ####[facility] [address] [place], [address] Calcium [Mass/Vol] 8.6 mg/dL Normal 7.6-11.0 [facility] Comment on above: Performed By: #### L 500.2500, L100.0100 ####[facility] [address] [place], [address] Chloride [Moles/Vol] 105 mmol/L Normal 98-108 [facility] Comment on above: Performed By: #### L 500.2500, L100.0100 ####[facility] [address] [place], [address] CO2 [Moles/Vol] 21.6 mmol/L Normal 21.0-32.0 [facility] Comment on above: Performed By: #### L 500.2500, L100.0100 ####[facility] [address] [place], [address] Creatinine [Mass/Vol] 0.95 mg/dL Normal 0.70-1.20 [facility] Comment on above: Performed By: #### L 500.2500, L100.0100 ####[facility] [address] [place], [address] ECRCL 63.63 ml/min Normal 50-250 [facility] Comment on above: Performed By: #### L 500.2500, L100.0100 ####[facility] [address] [place], [address] GAP 11 Normal 5-15 [facility] Comment on above: Performed By: #### L 500.2500, L100.0100 ####[facility] [address] [place], [address] GFR/1.73 sq M.predicted among non-blacks MDRD (S/P/Bld) [Vol rate/Area] 80 mL/min/{1.73_m2} Normal >60 [facility] Comment on above: Result Comment: mL/m in/1.73m2 CKD-EPI Creatinine Equation (2020) Performed By: #### L 500.2500, L100.0100 ####[facility] [address] [place], [address] Glucose [Mass/Vol] 157 mg/dL High 70-99 [facility] Comment on above: Performed By: #### L 500.2500, L100.0100 ####[facility] [address] [place], [address] Potassium [Moles/Vol] 4.3 mmol/L Normal 3.3-5.1 [facility] Comment on above: Performed By: #### L 500.2500, L100.0100 ####[facility] [address] [place], [address] Sodium [Moles/Vol] 138 mmol/L Normal 133-145 [facility] Comment on above: Performed By: #### L 500.2500, L100.0100 ####[facility] [address] [place], [address] Urea nitrogen [Mass/Vol] 20 mg/dL High 4-19 [facility] Comment on above: Performed By: #### L 500.2500, L100.0100 ####[facility] [address] [place], [address] Basophil percentageOrdered B y: Fredis Red on 06-07-2024 Basophils/100 WBC (Bld) 0.8 % 0-1 [facility] Bedside Glucoseon 06-07-2024 FINGERSTICK GLU 179 mg/dL High 74-106 [facility] Comment on above: Result Comment: NIKI GEMENT OF PATIENT CARE PER NURSING PROTOCOL Performed By: #### L 501.080 ####[facility] [address] [place], [address] FINGERSTICK GLU 151 mg/dL High 74-106 [facility] Comment on above: Result Comment: NIKI GEMENT OF PATIENT CARE PER NURSING PROTOCOL Performed By: #### L 501.080 ####[facility] [address] [place], [address] FINGERSTICK GLU 219 mg/dL High 74-106 [facility] Comment on above: Result Comment: NIKI GEMENT OF PATIENT CARE PER NURSING PROTOCOL Performed By: #### L 501.080 ####[facility] [address] [place], [address] FINGERSTICK GLU 144 mg/dL High 74-106 [facility] Comment on above: Result Comment: NIKI ROMERO OF PATIENT CARE PER NURSING PROTOCOL Performed By: #### L 501.080 ####[facility] [address] [place], [address] CBC W/Diff, Automatedon 05-23 Absolute Lymph 1.28 X10 3/uL Normal 0.83-4.51 [facility] Comment on above: Performed By: #### L 100.0100 ####[facility] [address] [place], [address] Absolute Neut 2.9 X10 3/uL Normal 2.0-7.7 [facility] Comment on above: Performed By: #### L 100.0100 ####[facility] [address] [place], [address] Basophils/100 WBC (Bld) 0.8 % Normal 0-[address] [facility] Comment on above: Performed By: #### L 100.0100 ####[facility] [address] [place], [address] Eosinophils/100 WBC (Bld) 4.3 % Normal 0-5 [facility] Comment on above: Performed By: #### L 100.0100 ####[facility] [address] [place], [address] Erythrocyte distribution width (RBC) [Ratio] 14.6 % Normal 11.6-14.6 [facility] Comment on above: Performed By: #### L 100.0100 ####[facility] [address] [place], [address] Hematocrit (Bld) [Volume fraction] 31.7 % Low 40-54 [facility] Comment on above: Performed By: #### L 100.0100 ####[facility] [address] [place], [address] Hemoglobin (Bld) [Mass/Vol] 10.3 g/dL Low 13.0-16.5 [facility] Comment on above: Performed By: #### L 100.0100 ####[facility] [address] [place], [address] IG% 0.800 Normal 0.0-0.9 [facility] Comment on above: Result Comment: IG% - Immature Granulocytes (promyelocytes, myelocytes andmetamyelocytes) > 1% indicates that a LEFT SHIFT is Present. Performed By: #### L 100.0100 ####[facility] [address] [place], [address] Lymphocytes/100 WBC (Bld) 25.0 % Normal 19-41 [facility] Comment on above: Performed By: #### L 100.0100 ####[facility] [address] [place], [address] MCH (RBC) [Entitic mass] 28.2 pg Normal 27.0-32.0 [facility] Comment on above: Performed By: #### L 100.0100 ####[facility] [address] [place], [address] MCHC (RBC) [Mass/Vol] 32.5 g/dL Normal 32-36 [facility] Comment on above: Performed By: #### L 100.0100 ####[facility] [address] [place], [address] MCV (RBC) [Entitic vol] 86.8 fL Normal 80-[address] [facility] Comment on above: Performed By: #### L 100.0100 ####[facility] [address] [place], [address] Monocytes/100 WBC (Bld) 13.3 % High 0-[address] [facility] Comment on above: Performed By: #### L 100.0100 ####[facility] [address] [place], [address] Neutrophils/100 WBC (Bld) 55.8 % Normal 47-70 [facility] Comment on above: Performed By: #### L 100.0100 ####[facility] [address] [place], [address] Nucleated RBC (Bld) [#/Vol] 0 10*3/uL Normal 0-5 [facility] Comment on above: Performed By: #### L 100.0100 ####[facility] [address] [place], [address] Platelet mean volume (Bld) [Entitic vol] 9.6 fL Normal 6.2-12.0 [facility] Comment on above: Performed By: #### L 100.0100 ####[facility] [address] [place], [address] Platelets (Bld) [#/Vol] 169 10*3/uL Normal 150-450 [facility] Comment on above: Performed By: #### L 100.0100 ####[facility] [address] [place], [address] RBC (Bld) [#/Vol] 3.65 10*6/uL Low 4.6-6.2 [facility] Comment on above: Performed By: #### L 100.0100 ####[facility] [address] [place], [address] RDW SD 46.5 fl High 35.1-43.9 [facility] Comment on above: Performed By: #### L 100.0100 ####[facility] [address] [place], [address] WBC (Bld) [#/Vol] 5.1 10*3/uL Normal 4.4-11.0 [facility] Comment on above: Performed By: #### L 100.0100 ####[facility] [address] [place], [address] Absolute Neut Normal 2.0-7.7 [facility] Comment on above: Result Comment: BARC ODE ERROR. REORDERED Performed By: #### L 500.2500, L100.0100 ####[facility] [address] [place], [address] HCT Normal 40-54 [facility] Comment on above: Result Comment: BARC ODE ERROR. REORDERED Performed By: #### L 500.2500, L100.0100 ####[facility] [address] [place], [address] HGB Normal 13.0-16.5 [facility] Comment on above: Result Comment: BARC ODE ERROR. REORDERED Performed By: #### L 500.2500, L100.0100 ####[facility] [address] [place], [address] MCH Normal 27.0-32.0 [facility] Comment on above: Result Comment: BARC ODE ERROR. REORDERED Performed By: #### L 500.2500, L100.0100 ####[facility] [address] [place], [address] MCHC Normal 32-36 [facility] Comment on above: Result Comment: BARC ODE ERROR. REORDERED Performed By: #### L 500.2500, L100.0100 ####[facility] [address] [place], [address] MCV Normal 80-94 [facility] Comment on above: Result Comment: BARC ODE ERROR. REORDERED Performed By: #### L 500.2500, L100.0100 ####[facility] [address] [place], [address] NEUT% Normal 47-70 [facility] Comment on above: Result Comment: BARC ODE ERROR. REORDERED Performed By: #### L 500.2500, L100.0100 ####[facility] [address] [place], [address] PLT Normal 150-450 [facility] Comment on above: Result Comment: BARC ODE ERROR. REORDERED Performed By: #### L 500.2500, L100.0100 ####[facility] [address] [place], [address] RBC Normal 4.6-6.2 [facility] Comment on above: Result Comment: BARC ODE ERROR. REORDERED Performed By: #### L 500.2500, L100.0100 ####[facility] [address] [place], [address] RDW CV Normal 11.6-14.6 [facility] Comment on above: Result Comment: BARC ODE ERROR. REORDERED Performed By: #### L 500.2500, L100.0100 ####[facility] [address] [place], [address] RDW SD Normal 35.1-43.9 [facility] Comment on above: Result Comment: BARC ODE ERROR. REORDERED Performed By: #### L 500.2500, L100.0100 ####[facility] [address] [place], [address] WBC Normal 4.4-11.0 [facility] Comment on above: Result Comment: BARC ODE ERROR. REORDERED Performed By: #### L 500.2500, L100.0100 ####[facility] [address] [place], [address] Carbon dioxide, total [Moles /volume] in Central venous bloodOrdered By: Fredis Moon on 06-07-2024 CO2 [Moles/Vol] 21.6 mmol/L 21.0-32.0 [facility] Chloride assayOrdered By: Mir Moon on 06-07-2024 Chloride [Moles/Vol] 105 mmol/L 98-108 [facility] Eosinophil percentageOrdered By: Fredis Moon 06-07-2024 Eosinophils/100 WBC (Bld) 4.3 % 0-5 [facility] Erythrocyte distribution wid th (RBC) [Ratio]Ordered By: Fredis Moon 06-07-2024 Erythrocyte distribution width (RBC) [Entitic vol] 46.5 fL High 35.1-43.9 [facility] Erythrocyte distribution wid th ratioOrdered By: Fredis Moon 06-07-2024 Erythrocyte distribution width (RBC) [Ratio] 14.6 % 11.6-14.6 [facility] Estimation of creatinine melissa aranceOrdered By: Fredis Moon 06-07-2024 Estimated Creatinine Clearance Calc 63.63 ml/min 50-250 [facility] GFR/1.73 sq M.predicted [place] g non-blacks MDRD (S/P/Bld) [Vol rate/Area]Ordered By: Fredis Moon 06-07-2024 Estimated GFR (MDRD) Non-Af Amer 80 >60 [facility] Comment on above: mL/min/1.73m2 CKD-EP I Creatinine Equation (2020) Hematocrit Auto (Bld) [Volum e fraction]Ordered By: Fredis Moon 06-07-2024 Hematocrit (Bld) [Volume fraction] 31.7 % Low 40-54 [facility] Hemoglobin measurementOrdere d By: Fredis Moon 06-07-2024 Hemoglobin (Bld) [Mass/Vol] 10.3 g/dL Low 13.0-16.5 [facility] Immature granulocytes/100 WB C Auto (Bld)Ordered By: Fredis Moon 06-07-2024 Immature granulocytes/100 WBC (Bld) 0.800 % 0.0-0.9 [facility] Comment on above: IG% - Immature Granu locytes (promyelocytes, myelocytes and metamyelocytes) > 1% indicates that a LEFT SHIFT is Present. Lymphocytes Auto (Unsp spec) [#/Vol]Ordered By: Fredis Moon 06-07-2024 Lymphocytes (Bld) [#/Vol] 1.28 10*3/uL 0.83-4.51 [facility] Lymphocytes/100 WBC Auto (Un sp spec)Ordered By: Fredis Moon on 06-07-2024 Lymphocytes/100 WBC (Bld) 25.0 % 19-41 [facility] MCV (mean corpuscular volume ) determinationOrdered By: Fredis Moon on 06-07-2024 MCV (RBC) [Entitic vol] 86.8 fL 80-[address] [facility] Mean corpuscular hemoglobin (MCH) determinationOrdered By: Fredis Perryok on 06-07-2024 MCH (RBC) [Entitic mass] 28.2 pg 27.0-32.0 [facility] Mean corpuscular hemoglobin concentration (MCHC) determinationOrdered By: Fredis Moon on 06-07-2024 MCHC (RBC) [Mass/Vol] 32.5 g/dL 32-36 [facility] Mean platelet volume determi nationOrdered By: Fredis Moon on 06-07-2024 Platelet mean volume (Bld) [Entitic vol] 9.6 fL 6.2-12.0 [facility] Monocyte percentageOrdered B y: Fredis Perryok on 06-07-2024 Monocytes/100 WBC (Bld) 13.3 % High 0-[address] [facility] Neutrophil percentageOrdered By: Fredis Perryok on 06-07-2024 Neutrophils/100 WBC (Bld) 55.8 % 47-70 [facility] Nucleated red blood cell per centageOrdered By: Fredsi Perryok on 06-07-2024 Nucleated RBC/100 WBC (Bld) [Ratio] 0 % 0-5 [facility] Platelet countOrdered By: Mir Moon on 06-07-2024 Platelets (Bld) [#/Vol] 169 10*3/uL 150-450 [facility] Potassium (Unsp spec) [Mass/ Vol]Ordered By: Fredis Moon on 06-07-2024 Potassium [Moles/Vol] 4.3 mmol/L 3.3-5.1 [facility] RBC Auto (Bld) [#/Vol]Ordere d By: Fredis Moon on 04-16-2025 RBC (Bld) [#/Vol] 3.65 10*6/uL Low 4.6-6.2 [facility] Serum creatinine measurement (mass/volume)Ordered By: Fredis Moon on 06-07-2024 Creatinine [Mass/Vol] 0.95 mg/dL 0.70-1.20 [facility] Serum glucose measurement (m ass/volume)Ordered By: Fredis Moon on 06-07-2024 Glucose [Mass/Vol] 157 mg/dL High 70-99 [facility] Serum or plasma calcium mt urement (mass/volume)Ordered By: Fredis Moon on 06-07-2024 Calcium [Mass/Vol] 8.6 mg/dL 7.6-11.0 [facility] Serum or plasma urea nitroge n measurement (mass/volume)Ordered By: Fredis Moon on 06-07-2024 Urea nitrogen [Mass/Vol] 20 mg/dL High 4-19 [facility] Sodium levelOrdered By: Fredis Moon on 06-07-2024 Sodium [Moles/Vol] 138 mmol/L 133-145 [facility] White blood cell (WBC) count Ordered By: Fredis Moon on 06-07-2024 WBC (Bld) [#/Vol] 5.1 10*3/uL 4.4-11.0 [facility] Basic Metabolic Profile (BMP )on 06-06-2024 BUN Normal - [facility] Comment on above: Result Comment: Canc elled via OM: Order Changed Performed By: #### L 100.0100, L500.2500 ####[facility] [address] [place], [place], [id number] BUN/CRE Normal 10-20 [facility] Comment on above: Result Comment: Canc elled via OM: Order Changed Performed By: #### L 100.0100, L500.2500 ####[facility] [address] [place], [address] Calcium Normal 7.6-11.0 [facility] Comment on above: Result Comment: Canc elled via OM: Order Changed Performed By: #### L 100.0100, L500.2500 ####[facility] [address] [place], [address] CL Normal 98-108 [facility] Comment on above: Result Comment: Canc elled via OM: Order Changed Performed By: #### L 100.0100, L500.2500 ####[facility] [address] [place], [address] CO2 Normal 21.0-32.0 [facility] Comment on above: Result Comment: Canc elled via OM: Order Changed Performed By: #### L 100.0100, L500.2500 ####[facility] [address] [place], [address] CREAT,SERUM Normal 0.70-1.20 [facility] Comment on above: Result Comment: Canc elled via OM: Order Changed Performed By: #### L 100.0100, L500.2500 ####[facility] [address] [place], [address] eGFR Normal >60 [facility] Comment on above: Result Comment: Canc elled via OM: Order Changed Performed By: #### L 100.0100, L500.2500 ####[facility] [address] [place], [address] GAP Normal 5-15 [facility] Comment on above: Result Comment: Canc elled via OM: Order Changed Performed By: #### L 100.0100, L500.2500 ####[facility] [address] [place], [address] GLU Normal 70-99 [facility] Comment on above: Result Comment: Canc elled via OM: Order Changed Performed By: #### L 100.0100, L500.2500 ####[facility] [address] [place], [address] Potassium Normal 3.3-5.1 [facility] Comment on above: Result Comment: Canc elled via OM: Order Changed Performed By: #### L 100.0100, L500.2500 ####[facility] [address] [place], [address] Basic Metabolic Profile (BMP) Normal 133-145 [facility] Comment on above: Result Comment: Canc elled via OM: Order Changed Performed By: #### L 100.0100, L500.2500 ####[facility] [address] [place], [address] Bedside Glucoseon 06-06-2024 FINGERSTICK GLU 175 mg/dL High 74-106 [facility] Comment on above: Result Comment: NIKI GEMENT OF PATIENT CARE PER NURSING PROTOCOL Performed By: #### L 501.080 ####[facility] [address] [place], [address] FINGERSTICK GLU 137 mg/dL High 74-106 [facility] Comment on above: Result Comment: NIKI GEMENT OF PATIENT CARE PER NURSING PROTOCOL Performed By: #### L 501.080 ####[facility] [address] [place], [address] FINGERSTICK GLU 156 mg/dL High 74-106 [facility] Comment on above: Result Comment: NIKI GEMENT OF PATIENT CARE PER NURSING PROTOCOL Performed By: #### L 501.080 ####[facility] [address] [place], [address] FINGERSTICK GLU 175 mg/dL High 74-106 [facility] Comment on above: Result Comment: NIKI GEMENT OF PATIENT CARE PER NURSING PROTOCOL Performed By: #### L 501.080 ####[facility] [address] [place], [address] CBC W/Diff, Automatedon 04- PATH REV Reviewed Normal [facility] Comment on above: Result Comment: SEE REPORT IN PATIENT'S EMR AMENDED REPORT 06/06/24 1507 PATH REV previously reported as: May foll Performed By: #### L 500.2500, L100.0100 ####[facility] [address] [place], [address] Absolute Neut Normal 2.0-7.7 [facility] Comment on above: Result Comment: Canc elled via OM: Order Changed Performed By: #### L 100.0100, L500.2500 ####[facility] [address] [place], [address] HCT Normal 40-54 [facility] Comment on above: Result Comment: Canc elled via OM: Order Changed Performed By: #### L 100.0100, L500.2500 ####[facility] [address] [place], [address] HGB Normal 13.0-16.5 [facility] Comment on above: Result Comment: Canc elled via OM: Order Changed Performed By: #### L 100.0100, L500.2500 ####[facility] [address] [place], [address] MCH Normal 27.0-32.0 [facility] Comment on above: Result Comment: Canc elled via OM: Order Changed Performed By: #### L 100.0100, L500.2500 ####[facility] [address] [place], [address] MCHC Normal 32-36 [facility] Comment on above: Result Comment: Canc elled via OM: Order Changed Performed By: #### L 100.0100, L500.2500 ####[facility] [address] [place], [address] MCV Normal 80-94 [facility] Comment on above: Result Comment: Canc elled via OM: Order Changed Performed By: #### L 100.0100, L500.2500 ####[facility] [address] [place], [address] NEUT% Normal 47-70 [facility] Comment on above: Result Comment: Canc elled via OM: Order Changed Performed By: #### L 100.0100, L500.2500 ####[facility] [address] [place], [address] PLT Normal 150-450 [facility] Comment on above: Result Comment: Canc elled via OM: Order Changed Performed By: #### L 100.0100, L500.2500 ####[facility] [address] [place], [address] RBC Normal 4.6-6.2 [facility] Comment on above: Result Comment: Canc elled via OM: Order Changed Performed By: #### L 100.0100, L500.2500 ####[facility] [address] [place], [address] RDW CV Normal 11.6-14.6 [facility] Comment on above: Result Comment: Canc elled via OM: Order Changed Performed By: #### L 100.0100, L500.2500 ####[facility] [address] [place], [address] RDW SD Normal 35.1-43.9 [facility] Comment on above: Result Comment: Canc elled via OM: Order Changed Performed By: #### L 100.0100, L500.2500 ####[facility] [address] [place], [address] WBC Normal 4.4-11.0 [facility] Comment on above: Result Comment: Canc elled via OM: Order Changed Performed By: #### L 100.0100, L500.2500 ####[facility] [address] [place], [address] Progress Noteon 06-06-2024 Progress Note 06/06/24 1104 BPCI Late Drop? Program late drop? No BPCI Outreach Assessment Selection Which outreach assessment are you completing? 21 Day BPCI - 21 Day Outreach Did patient answer phone call? Yes Have you noticed any negative changes in your condition? (Patient remains at rehab-[facility] [place] [facility] with plans to get discharged home soon) Any questions about your condition you are unsure about that I can help clarify? Yes (Discussed rehab and progress made, important follow up appointments when home, surgery site, diabetes management) Normal [facility] Bedside Glucoseon 06-05-2024 FINGERSTICK GLU 176 mg/dL High 74-106 [facility] Comment on above: Result Comment: NIKI GEMENT OF PATIENT CARE PER NURSING PROTOCOL Performed By: #### L 501.080 ####[facility] [address] [facility] [address] FINGERSTICK GLU 135 mg/dL High [facility]106 [facility] Comment on above: Result Comment: NIKI GEMENT OF PATIENT CARE PER NURSING PROTOCOL Performed By: #### L 501.080 ####[facility] [address] [place], [address] FINGERSTICK GLU 205 mg/dL High [facility]106 [facility] Comment on above: Result Comment: NIKI GEMENT OF PATIENT CARE PER NURSING PROTOCOL Performed By: #### L 501.080 ####[facility] [address] [place], [address] FINGERSTICK GLU 193 mg/dL High [facility]106 [facility] Comment on above: Result Comment: NIKI GEMENT OF PATIENT CARE PER NURSING PROTOCOL Performed By: #### L 501.080 ####[facility] [address] [place], [address] Venous duplex ultrasound rep ortOrdered By: Daysi Monterroso on 06-05-2024 US Vein [facility] [address] [place] [address] Venous Duplex US, Unilateral 06/02/24 1112 MR#: [id number] Acct: [id number] Name: Joaquin THRASHER Rep #:[id number] : 1940 84 From: Daysi Clayton Attending Dr: Dr. Fredis Moon MD Status: REG CLI Ordering Dr: Fredsi Moon MD Date: 01/16 Location: [facility] Sex: [...] Moon Chi Performed By: Cee Huntley RVT 06/05/2496 Date _ Daysi Monterroso MD CC: Dr. Fredis Moon MD ~ Date Dictated: 06/02/24 1112 Date Transcribed: 06/05/24746 Compound Finisher: Signed [facility] Work Phone: Bedside Glucoseon 06-04-2024 FINGERSTICK GLU 232 mg/dL High 74-106 [facility] Comment on above: Result Comment: NIKI GEMENT OF PATIENT CARE PER NURSING PROTOCOL Performed By: #### L 501.080 ####[facility] [address] [place], [address] FINGERSTICK GLU 149 mg/dL High 74-106 [facility] Comment on above: Result Comment: NIKI GEMENT OF PATIENT CARE PER NURSING PROTOCOL Performed By: #### L 501.080 ####[facility] [address] [place], [address] FINGERSTICK GLU 202 mg/dL High -106 [facility] Comment on above: Result Comment: NIKI GEMENT OF PATIENT CARE PER NURSING PROTOCOL Performed By: #### L 501.080 ####[facility] [address] [place], [address] FINGERSTICK GLU 174 mg/dL High [facility]106 [facility] Comment on above: Result Comment: NIKI GEMENT OF PATIENT CARE PER NURSING PROTOCOL Performed By: #### L 501.080 ####[facility] [address] [place], [address] Bedside Glucoseon 06-03-2024 FINGERSTICK GLU 218 mg/dL High 74-106 [facility] Comment on above: Result Comment: NIKI GEMENT OF PATIENT CARE PER NURSING PROTOCOL Performed By: #### L 501.080 ####[facility] [address] [place], [address] FINGERSTICK GLU 160 mg/dL High -106 [facility] Comment on above: Result Comment: NIKI GEMENT OF PATIENT CARE PER NURSING PROTOCOL Performed By: #### L 501.080 ####[facility] [address] [place], [address] FINGERSTICK GLU 159 mg/dL High -[address] [place] [address] Comment on above: Result Comment: NIKI GEMENT OF PATIENT CARE PER NURSING PROTOCOL Performed By: #### L 501.080 ####[facility] [address] [place], [address] FINGERSTICK GLU 157 mg/dL High 74-106 [facility] Comment on above: Result Comment: NIKI GEMENT OF PATIENT CARE PER NURSING PROTOCOL Performed By: #### L 501.080 ####[facility] [address] [place], [address] Bedside Glucoseon 06-02-2024 FINGERSTICK GLU 200 mg/dL High [address] [place] [address] Comment on above: Result Comment: NIKI GEMENT OF PATIENT CARE PER NURSING PROTOCOL Performed By: #### L 501.080 ####[facility] [address] [facility] [address] FINGERSTICK GLU 165 mg/dL High -106 [facility] Comment on above: Result Comment: NIKI GEMENT OF PATIENT CARE PER NURSING PROTOCOL Performed By: #### L 501.080 ####[facility] [address] [place], [address] FINGERSTICK GLU 149 mg/dL High [address] [place] [address] Comment on above: Result Comment: NIKI GEMENT OF PATIENT CARE PER NURSING PROTOCOL Performed By: #### L 501.080 ####[facility] [address] [place], [address] FINGERSTICK GLU 173 mg/dL High [facility]106 [facility] Comment on above: Result Comment: NIKI GEMENT OF PATIENT CARE PER NURSING PROTOCOL Performed By: #### L 501.080 ####[facility] [address] [place], [address] Venous Duplex US, Unilateral on 06-02-2024 Venous Duplex US, Unilateral Normal [facility] Bedside Glucoseon 06-01-2024 FINGERSTICK GLU 149 mg/dL High 74-106 [facility] Comment on above: Result Comment: NIKI GEMENT OF PATIENT CARE PER NURSING PROTOCOL Performed By: #### L 501.080 ####[facility] [address] [place], [address] FINGERSTICK GLU 125 mg/dL High 74-106 [facility] Comment on above: Result Comment: NIKI GEMENT OF PATIENT CARE PER NURSING PROTOCOL Performed By: #### L 501.080 ####[facility] [address] [place], [address] FINGERSTICK GLU 168 mg/dL High 74-106 [facility] Comment on above: Result Comment: NIKI GEMENT OF PATIENT CARE PER NURSING PROTOCOL Performed By: #### L 501.080 ####[facility] [address] [place], [address] FINGERSTICK GLU 130 mg/dL High 74-106 [facility] Comment on above: Result Comment: NIKI GEMENT OF PATIENT CARE PER NURSING PROTOCOL Performed By: #### L 501.080 ####[facility] [address] [place], [address] Basic Metabolic Profile (BMP )on 05-31-2024 BUN/CRE 19.0 RATIO Normal 10-20 [facility] Comment on above: Performed By: #### L 100.0100, L500.2500 ####[facility] [address] [place], [address] Calcium [Mass/Vol] 8.6 mg/dL Normal 7.6-11.0 [facility] Comment on above: Performed By: #### L 100.0100, L500.2500 ####[facility] [address] [place], [address] Chloride [Moles/Vol] 105 mmol/L Normal 98-108 [facility] Comment on above: Performed By: #### L 100.0100, L500.2500 ####[facility] [address], [address] CO2 [Moles/Vol] 22.1 mmol/L Normal 21.0-32.0 [facility] Comment on above: Performed By: #### L 100.0100, L500.2500 ####[facility] [address] [place], [address] Creatinine [Mass/Vol] 1.04 mg/dL Normal 0.70-1.20 [facility] Comment on above: Performed By: #### L 100.0100, L500.2500 ####[facility] [address] [place], [address] ECRCL 58.66 ml/min Normal 50-250 [facility] Comment on above: Performed By: #### L 100.0100, L500.2500 ####[facility] [address] [place], [address] GAP 11 Normal 5-15 [facility] Comment on above: Performed By: #### L 100.0100, L500.2500 ####[facility] [address] [place], [address] GFR/1.73 sq M.predicted among non-blacks MDRD (S/P/Bld) [Vol rate/Area] 72 mL/min/{1.73_m2} Normal >60 [facility] Comment on above: Result Comment: mL/m in/1.73m2 CKD-EPI Creatinine Equation (2020) Performed By: #### L 100.0100, L500.2500 ####[facility] [address] [place], [address] Glucose [Mass/Vol] 118 mg/dL High 70-99 [facility] Comment on above: Performed By: #### L 100.0100, L500.2500 ####[facility] [address] [place], [address] Potassium [Moles/Vol] 4.1 mmol/L Normal 3.3-5.1 [facility] Comment on above: Performed By: #### L 100.0100, L500.2500 ####[facility] [address] [place], [address] Sodium [Moles/Vol] 138 mmol/L Normal 133-145 [facility] Comment on above: Performed By: #### L 100.0100, L500.2500 ####[facility] [address] [place], [address] Urea nitrogen [Mass/Vol] 20 mg/dL High 4-19 [facility] Comment on above: Performed By: #### L 100.0100, L500.2500 ####[facility] [address] [place], [address] Bedside Glucoseon 05-31-2024 FINGERSTICK GLU 141 mg/dL High 74-106 [facility] Comment on above: Result Comment: NIKI GEMENT OF PATIENT CARE PER NURSING PROTOCOL Performed By: #### L 501.080 ####[facility] [address] [place], [address] FINGERSTICK GLU 110 mg/dL High 74-106 [facility] Comment on above: Result Comment: NIKI GEMENT OF PATIENT CARE PER NURSING PROTOCOL Performed By: #### L 501.080 ####[facility] [address] [place], [address] FINGERSTICK GLU 180 mg/dL High 74-106 [facility] Comment on above: Result Comment: NIKI GEMENT OF PATIENT CARE PER NURSING PROTOCOL Performed By: #### L 501.080 ####[facility] [address] [place], [address] FINGERSTICK GLU 133 mg/dL High 74-106 [facility] Comment on above: Result Comment: NIKI GEMENT OF PATIENT CARE PER NURSING PROTOCOL Performed By: #### L 501.080 ####[facility] [address] [place], [address] CBC W/Diff, Automatedon 04-0 9-2024 Absolute Lymph 1.25 X10 3/uL Normal 0.83-4.51 [facility] Comment on above: Performed By: #### L 100.0100 ####[facility] [address] [place], [address] Absolute Neut 2.5 X10 3/uL Normal 2.0-7.7 [facility] Comment on above: Performed By: #### L 100.0100 ####[facility] [address] [place], [address] Basophils/100 WBC (Bld) 0.9 % Normal 0-[address] [facility] Comment on above: Performed By: #### L 100.0100 ####[facility] [address] [place], [address] Eosinophils/100 WBC (Bld) 3.7 % Normal 0-5 [facility] Comment on above: Performed By: #### L 100.0100 ####[facility] [address] [place], [address] Erythrocyte distribution width (RBC) [Ratio] 14.7 % High 11.6-14.6 [facility] Comment on above: Performed By: #### L 100.0100 ####[facility] [address] [place], [address] Hematocrit (Bld) [Volume fraction] 32.0 % Low 40-54 [facility] Comment on above: Performed By: #### L 100.0100 ####[facility] [address] [place], [address] Hemoglobin (Bld) [Mass/Vol] 10.0 g/dL Low 13.0-16.5 [facility] Comment on above: Performed By: #### L 100.0100 ####[facility] [address] [place], [address] IG% 0.900 Normal 0.0-0.9 [facility] Comment on above: Result Comment: IG% - Immature Granulocytes (promyelocytes, myelocytes andmetamyelocytes) > 1% indicates that a LEFT SHIFT is Present. Performed By: #### L 100.0100 ####[facility] [address] [place], [address] Lymphocytes/100 WBC (Bld) 27.1 % Normal 19-41 [facility] Comment on above: Performed By: #### L 100.0100 ####[facility] [address] [place], [address] MCH (RBC) [Entitic mass] 27.7 pg Normal 27.0-32.0 [facility] Comment on above: Performed By: #### L 100.0100 ####[facility] [address] [place], [address] MCHC (RBC) [Mass/Vol] 31.3 g/dL Low 32-36 [facility] Comment on above: Performed By: #### L 100.0100 ####[facility] [address] [place], [address] MCV (RBC) [Entitic vol] 88.6 fL Normal 80-[address] [facility] Comment on above: Performed By: #### L 100.0100 ####[facility] [address] [place], [address] Monocytes/100 WBC (Bld) 12.4 % High 0-[address] [facility] Comment on above: Performed By: #### L 100.0100 ####[facility] [address] [place], [address] Neutrophils/100 WBC (Bld) 55.0 % Normal 47-70 [facility] Comment on above: Performed By: #### L 100.0100 ####[facility] [address] [place], [address] Nucleated RBC (Bld) [#/Vol] 0 10*3/uL Normal 0-5 [facility] Comment on above: Performed By: #### L 100.0100 ####[facility] [address] [place], [address] Platelet mean volume (Bld) [Entitic vol] 9.2 fL Normal 6.2-12.0 [facility] Comment on above: Performed By: #### L 100.0100 ####[facility] [address] [place], [address] Platelets (Bld) [#/Vol] 269 10*3/uL Normal 150-450 [facility] Comment on above: Performed By: #### L 100.0100 ####[facility] [address] [place], [address] RBC (Bld) [#/Vol] 3.61 10*6/uL Low 4.6-6.2 [facility] Comment on above: Performed By: #### L 100.0100 ####[facility] [address] [place], [address] RDW SD 47.5 fl High 35.1-43.9 [facility] Comment on above: Performed By: #### L 100.0100 ####[facility] [address] [place], [address] WBC (Bld) [#/Vol] 4.6 10*3/uL Normal 4.4-11.0 [facility] Comment on above: Performed By: #### L 100.0100 ####[facility] [address] [place], [address] Absolute Neut Normal 2.0-7.7 [facility] Comment on above: Result Comment: BARC ODE ERROR. REORDERED Performed By: #### L 100.0100, L500.2500 ####[facility] [address] [place], [address] HCT Normal 40-54 [facility] Comment on above: Result Comment: BARC ODE ERROR. REORDERED Performed By: #### L 100.0100, L500.2500 ####[facility] [address] [place], [address] HGB Normal 13.0-16.5 [facility] Comment on above: Result Comment: BARC ODE ERROR. REORDERED Performed By: #### L 100.0100, L500.2500 ####[facility] [address] [place], [address] MCH Normal 27.0-32.0 [facility] Comment on above: Result Comment: BARC ODE ERROR. REORDERED Performed By: #### L 100.0100, L500.2500 ####[facility] [address] [place], [address] MCHC Normal 32-36 [facility] Comment on above: Result Comment: BARC ODE ERROR. REORDERED Performed By: #### L 100.0100, L500.2500 ####[facility] [address] [place], [address] MCV Normal 80-94 [facility] Comment on above: Result Comment: BARC ODE ERROR. REORDERED Performed By: #### L 100.0100, L500.2500 ####[facility] [address] [place], [address] NEUT% Normal 47-70 [facility] Comment on above: Result Comment: BARC ODE ERROR. REORDERED Performed By: #### L 100.0100, L500.2500 ####[facility] [address] [place], [address] PLT Normal 150-450 [facility] Comment on above: Result Comment: BARC ODE ERROR. REORDERED Performed By: #### L 100.0100, L500.2500 ####[facility] [address] [place], [address] RBC Normal 4.6-6.2 [facility] Comment on above: Result Comment: BARC ODE ERROR. REORDERED Performed By: #### L 100.0100, L500.2500 ####[facility] [address] [place], [address] RDW CV Normal 11.6-14.6 [facility] Comment on above: Result Comment: BARC ODE ERROR. REORDERED Performed By: #### L 100.0100, L500.2500 ####[facility] [address] [place], [address] RDW SD Normal 35.1-43.9 [facility] Comment on above: Result Comment: BARC ODE ERROR. REORDERED Performed By: #### L 100.0100, L500.2500 ####[facility] [address] [place], [address] WBC Normal 4.4-11.0 [facility] Comment on above: Result Comment: BARC ODE ERROR. REORDERED Performed By: #### L 100.0100, L500.2500 ####[facility] [address] [place], [address] Basic Metabolic Profile (BMP )on 05-30-2024 BUN Normal 4-19 [facility] Comment on above: Result Comment: Canc elled via OM: Order Changed Performed By: #### L 500.2500, L100.0100 ####[facility] [address] [place], [address] BUN/CRE Normal 10-20 [facility] Comment on above: Result Comment: Canc elled via OM: Order Changed Performed By: #### L 500.2500, L100.0100 ####[facility] [address] [place], [address] Calcium Normal 7.6-11.0 [facility] Comment on above: Result Comment: Canc elled via OM: Order Changed Performed By: #### L 500.2500, L100.0100 ####[facility] [address] [place], [address] CL Normal 98-108 [facility] Comment on above: Result Comment: Canc elled via OM: Order Changed Performed By: #### L 500.2500, L100.0100 ####[facility] [address] [place], [address] CO2 Normal 21.0-32.0 [facility] Comment on above: Result Comment: Canc elled via OM: Order Changed Performed By: #### L 500.2500, L100.0100 ####[facility] [address] [place], [address] CREAT,SERUM Normal 0.70-1.20 [facility] Comment on above: Result Comment: Canc elled via OM: Order Changed Performed By: #### L 500.2500, L100.0100 ####[facility] [address] [place], [address] eGFR Normal >60 [facility] Comment on above: Result Comment: Canc elled via OM: Order Changed Performed By: #### L 500.2500, L100.0100 ####[facility] [address] [place], [address] GAP Normal 5-15 [facility] Comment on above: Result Comment: Canc elled via OM: Order Changed Performed By: #### L 500.2500, L100.0100 ####[facility] [address] [place], [address] GLU Normal 70-99 [facility] Comment on above: Result Comment: Canc elled via OM: Order Changed Performed By: #### L 500.2500, L100.0100 ####[facility] [address] [place], [address] Potassium Normal 3.3-5.1 [facility] Comment on above: Result Comment: Canc elled via OM: Order Changed Performed By: #### L 500.2500, L100.0100 ####[facility] [address] [place], [address] Basic Metabolic Profile (BMP) Normal 133-145 [facility] Comment on above: Result Comment: Canc elled via OM: Order Changed Performed By: #### L 500.2500, L100.0100 ####[facility] [address] [place], [address] Bedside Glucoseon 05-30-2024 FINGERSTICK GLU 157 mg/dL High 74-106 [facility] Comment on above: Result Comment: NIKI GEMENT OF PATIENT CARE PER NURSING PROTOCOL Performed By: #### L 501.080 ####[facility] [address] [place], [address] FINGERSTICK GLU 84 mg/dL Normal 74-106 [facility] Comment on above: Result Comment: NIKI GEMENT OF PATIENT CARE PER NURSING PROTOCOL Performed By: #### L 501.080 ####[facility] [address] [place], [address] FINGERSTICK GLU 123 mg/dL High 74-106 [facility] Comment on above: Result Comment: NIKI GEMENT OF PATIENT CARE PER NURSING PROTOCOL Performed By: #### L 501.080 ####[facility] [address] [place], [address] FINGERSTICK GLU 130 mg/dL High 74-106 [facility] Comment on above: Result Comment: NIKI GEMENT OF PATIENT CARE PER NURSING PROTOCOL Performed By: #### L 501.080 ####[facility] [address] [place], [address] CBC W/Diff, Automatedon 04-0 -2024 Absolute Neut Normal 2.0-7.7 [facility] Comment on above: Result Comment: Canc elled via OM: Order Changed Performed By: #### L 500.2500, L100.0100 ####[facility] [address] [place], [address] HCT Normal 40-54 [facility] Comment on above: Result Comment: Canc elled via OM: Order Changed Performed By: #### L 500.2500, L100.0100 ####[facility] [address] [place], [address] HGB Normal 13.0-16.5 [facility] Comment on above: Result Comment: Canc elled via OM: Order Changed Performed By: #### L 500.2500, L100.0100 ####[facility] [address] [place], [address] MCH Normal 27.0-32.0 [facility] Comment on above: Result Comment: Canc elled via OM: Order Changed Performed By: #### L 500.2500, L100.0100 ####[facility] [address] [place], [address] MCHC Normal 32-36 [facility] Comment on above: Result Comment: Canc elled via OM: Order Changed Performed By: #### L 500.2500, L100.0100 ####[facility] [address] [place], [address] MCV Normal 80-94 [facility] Comment on above: Result Comment: Canc elled via OM: Order Changed Performed By: #### L 500.2500, L100.0100 ####[facility] [address] [place], [address] NEUT% Normal 47-70 [facility] Comment on above: Result Comment: Canc elled via OM: Order Changed Performed By: #### L 500.2500, L100.0100 ####[facility] [address] [place], [address] PLT Normal 150-450 [facility] Comment on above: Result Comment: Canc elled via OM: Order Changed Performed By: #### L 500.2500, L100.0100 ####[facility] [address] [place], [address] RBC Normal 4.6-6.2 [facility] Comment on above: Result Comment: Canc elled via OM: Order Changed Performed By: #### L 500.2500, L100.0100 ####[facility] [address] [place], [address] RDW CV Normal 11.6-14.6 [facility] Comment on above: Result Comment: Canc elled via OM: Order Changed Performed By: #### L 500.2500, L100.0100 ####[facility] [address] [place], [address] RDW SD Normal 35.1-43.9 [facility] Comment on above: Result Comment: Canc elled via OM: Order Changed Performed By: #### L 500.2500, L100.0100 ####[facility] [address] [place], [address] WBC Normal 4.4-11.0 [facility] Comment on above: Result Comment: Canc elled via OM: Order Changed Performed By: #### L 500.2500, L100.0100 ####[facility] [address] [place], [address] Bedside Glucoseon 05-29-2024 FINGERSTICK GLU 146 mg/dL High 74-106 [facility] Comment on above: Result Comment: NIKI GEMENT OF PATIENT CARE PER NURSING PROTOCOL Performed By: #### L 501.080 ####[facility] [address] [place], [address] FINGERSTICK GLU 160 mg/dL High 74-106 [facility] Comment on above: Result Comment: NIKI GEMENT OF PATIENT CARE PER NURSING PROTOCOL Performed By: #### L 501.080 ####[facility] [address] [place], [address] FINGERSTICK GLU 159 mg/dL High 74-106 [facility] Comment on above: Result Comment: NIKI GEMENT OF PATIENT CARE PER NURSING PROTOCOL Performed By: #### L 501.080 ####[facility] [address] [place], [address] FINGERSTICK GLU 114 mg/dL High 74-106 [facility] Comment on above: Result Comment: NIKI GEMENT OF PATIENT CARE PER NURSING PROTOCOL Performed By: #### L 501.080 ####[facility] [address] [place], [address] Bedside Glucoseon 05-28-2024 FINGERSTICK GLU 146 mg/dL High 74-106 [facility] Comment on above: Result Comment: NIKI GEMENT OF PATIENT CARE PER NURSING PROTOCOL Performed By: #### L 501.080 ####[facility] [address] [place], [address] FINGERSTICK GLU 101 mg/dL Normal 74-106 [facility] Comment on above: Result Comment: NIKI GEMENT OF PATIENT CARE PER NURSING PROTOCOL Performed By: #### L 501.080 ####[facility] [address] [place], [address] FINGERSTICK GLU 103 mg/dL Normal 74-106 [facility] Comment on above: Result Comment: NIKI GEMENT OF PATIENT CARE PER NURSING PROTOCOL Performed By: #### L 501.080 ####[facility] [address] [place], [address] FINGERSTICK GLU 143 mg/dL High 74-106 [facility] Comment on above: Result Comment: NIKI GEMENT OF PATIENT CARE PER NURSING PROTOCOL Performed By: #### L 501.080 ####[facility] [address] [place], [address] Bedside Glucoseon 05-27-2024 FINGERSTICK GLU 176 mg/dL High 74-106 [facility] Comment on above: Result Comment: NIKI GEMENT OF PATIENT CARE PER NURSING PROTOCOL Performed By: #### L 501.080 ####[facility] [address] [place], [address] FINGERSTICK GLU 98 mg/dL Normal -106 [facility] Comment on above: Result Comment: NIKI GEMENT OF PATIENT CARE PER NURSING PROTOCOL Performed By: #### L 501.080 ####[facility] [address] [place], [address] FINGERSTICK GLU 238 mg/dL High 74-106 [facility] Comment on above: Result Comment: NIKI GEMENT OF PATIENT CARE PER NURSING PROTOCOL Performed By: #### L 501.080 ####[facility] [address] [place], [address] FINGERSTICK GLU 106 mg/dL Normal 74-106 [facility] Comment on above: Result Comment: NIKI GEMENT OF PATIENT CARE PER NURSING PROTOCOL Performed By: #### L 501.080 ####[facility] [address] [place], [address] Calculated total iron bindin g capacityOrdered By: Fredis Moon on 05-27-2024 Total Iron Binding Capacity 258 ug/dL 250-450 [facility] Iron (Unsp spec) [Mass/Mass] Ordered By: Fredis Moon on 05-27-2024 Iron [Mass/Vol] 36 ug/dL Low 65-175 [facility] Iron measurement (mass/mass) Ordered By: Fredis Moon on 05-27-2024 Iron (Unsp spec) [Mass/Mass] 36 ug/dL Low 65-175 [facility] Iron saturation [Mass fracti on]Ordered By: Fredis Moon on 05-27-2024 Iron Saturation 14.0 % 55 [facility] Iron+Iron Binding Capacityon 05-27-2024 Iron [Mass/Vol] 36 ug/dL Low 65-175 [facility] Comment on above: Performed By: #### L 503.6030 ####[facility] [address] [facility] [address] IRON SATURATION 14.0 Normal 9-55 [facility] Comment on above: Performed By: #### L 503.6030 ####[facility] [address] [facility] [address] TIBC 258 ug/dL Normal 250-450 [facility] Comment on above: Performed By: #### L 503.6030 ####[facility] [address] [facility] [address] UIBC 222 ug/dL Low 228-428 [facility] Comment on above: Performed By: #### L 503.6030 ####[facility] [address] [facility] [address] No Panel InformationOrdered By: Fredis Moon on 05-27-2024 Unsaturated Iron Binding Capacity 222 ug/dL Low 228-428 [facility] Serum or plasma iron saturat ion measurement (mass fraction)Ordered By: Fredis Moon on 05-27-2024 Iron saturation [Mass fraction] 14.0 % [facility] Bedside Glucoseon 05-26-2024 FINGERSTICK GLU 123 mg/dL High 74-106 [facility] Comment on above: Result Comment: NIKI ROMERO OF PATIENT CARE PER NURSING PROTOCOL Performed By: #### L 501.080 ####[facility] [address] [facility] [address] FINGERSTICK GLU 132 mg/dL High 74-106 [facility] Comment on above: Result Comment: NIKI GEMENT OF PATIENT CARE PER NURSING PROTOCOL Performed By: #### L 501.080 ####[facility] [address] [place], [address] FINGERSTICK GLU 147 mg/dL High 74-106 [facility] Comment on above: Result Comment: NIKI GEMENT OF PATIENT CARE PER NURSING PROTOCOL Performed By: #### L 501.080 ####[facility] [address] [place], [address] FINGERSTICK GLU 126 mg/dL High 74-106 [facility] Comment on above: Result Comment: NIKI GEMENT OF PATIENT CARE PER NURSING PROTOCOL Performed By: #### L 501.080 ####[facility] [address] [place], [address] HH, Hemoglobin AND Hematocri ton 05-26-2024 Hematocrit (Bld) [Volume fraction] 31.0 % Low 40-54 [facility] Comment on above: Performed By: #### L 100.0600 ####[facility] [address] [place], [address] Hemoglobin (Bld) [Mass/Vol] 9.9 g/dL Low 13.0-16.5 [facility] Comment on above: Performed By: #### L 100.0600 ####[facility] [address] [place], [address] Bedside Glucoseon 05-25-2024 FINGERSTICK GLU 195 mg/dL High 74-106 [facility] Comment on above: Result Comment: NIKI GEMENT OF PATIENT CARE PER NURSING PROTOCOL Performed By: #### L 501.080 ####[facility] [address] [place], [address] FINGERSTICK GLU 119 mg/dL High 74-106 [facility] Comment on above: Result Comment: NIKI GEMENT OF PATIENT CARE PER NURSING PROTOCOL Performed By: #### L 501.080 ####[facility] [address] [place], [address] FINGERSTICK GLU 247 mg/dL High 74-106 [facility] Comment on above: Result Comment: NIKI GEMENT OF PATIENT CARE PER NURSING PROTOCOL Performed By: #### L 501.080 ####[facility] [address] [facility] [address] FINGERSTICK GLU 172 mg/dL High 74-106 [facility] Comment on above: Result Comment: NIKI GEMENT OF PATIENT CARE PER NURSING PROTOCOL Performed By: #### L 501.080 ####[facility] [address] [place], [address] FINGERSTICK GLU 128 mg/dL High 74-106 [facility] Comment on above: Result Comment: NIKI GEMENT OF PATIENT CARE PER NURSING PROTOCOL Performed By: #### L 501.080 ####[facility] [address] [place], [address] Progress Noteon 05-25-2024 Progress Note [facility]: [employer] [place] [address] [facility] [address] Dept: [phone] Dept Loc: [phone] Visit type: Established patient Reason for Visit: [...] and reasonable under the circumstances: Currently at [facility] . The patient has been advised of [...] that they are currently in the state [facility]. If the patient is a minor, [...] chewable tablet (more content not included)... Normal [facility] Basic Metabolic Profile (BMP )on 05-24-2024 BUN/CRE 22.9 RATIO High 10-20 [facility] Comment on above: Performed By: #### L 500.2500, L100.0100 ####[facility] [address] [place], [address] Calcium [Mass/Vol] 8.9 mg/dL Normal 7.6-11.0 [facility] Comment on above: Performed By: #### L 500.2500, L100.0100 ####[facility] [address] [place], [address] Chloride [Moles/Vol] 104 mmol/L Normal 98-108 [facility] Comment on above: Performed By: #### L 500.2500, L100.0100 ####[facility] [address] [place], [address] CO2 [Moles/Vol] 24.5 mmol/L Normal 21.0-32.0 [facility] Comment on above: Performed By: #### L 500.2500, L100.0100 ####[facility] [address] [place], [address] Creatinine [Mass/Vol] 1.08 mg/dL Normal 0.70-1.20 [facility] Comment on above: Performed By: #### L 500.2500, L100.0100 ####[facility] [address] [place], [address] ECRCL 57.34 ml/min Normal 50-250 [facility] Comment on above: Performed By: #### L 500.2500, L100.0100 ####[facility] [address] [place], [address] GAP 11 Normal 5-15 [facility] Comment on above: Performed By: #### L 500.2500, L100.0100 ####[facility] [address] [place], [address] GFR/1.73 sq M.predicted among non-blacks MDRD (S/P/Bld) [Vol rate/Area] 69 mL/min/{1.73_m2} Normal >60 [facility] Comment on above: Result Comment: mL/m in/1.73m2 CKD-EPI Creatinine Equation (2020) Performed By: #### L 500.2500, L100.0100 ####[facility] [address] [place], [address] Glucose [Mass/Vol] 142 mg/dL High 70-99 [facility] Comment on above: Performed By: #### L 500.2500, L100.0100 ####[facility] [address] [place], [address] Potassium [Moles/Vol] 4.3 mmol/L Normal 3.3-5.1 [facility] Comment on above: Performed By: #### L 500.2500, L100.0100 ####[facility] [address] [place], [address] Sodium [Moles/Vol] 140 mmol/L Normal 133-145 [facility] Comment on above: Performed By: #### L 500.2500, L100.0100 ####[facility] [address] [place], [address] Urea nitrogen [Mass/Vol] 25 mg/dL High 4-19 [facility] Comment on above: Performed By: #### L 500.2500, L100.0100 ####[facility] [address] [place], [address] Bedside Glucoseon 05-24-2024 FINGERSTICK GLU 197 mg/dL High 74-106 [facility] Comment on above: Result Comment: NIKI GEMENT OF PATIENT CARE PER NURSING PROTOCOL Performed By: #### L 501.080 ####[facility] [address] [place], [address] FINGERSTICK GLU 79 mg/dL Normal 74-106 [facility] Comment on above: Result Comment: NIKI GEMENT OF PATIENT CARE PER NURSING PROTOCOL Performed By: #### L 501.080 ####[facility] [address] [place], [address] FINGERSTICK GLU 61 mg/dL Low 74-106 [facility] Comment on above: Result Comment: NIKI GEMENT OF PATIENT CARE PER NURSING PROTOCOL Performed By: #### L 501.080 ####[facility] [address] [place], [address] FINGERSTICK GLU 149 mg/dL High 74-106 [facility] Comment on above: Result Comment: NIKI GEMENT OF PATIENT CARE PER NURSING PROTOCOL Performed By: #### L 501.080 ####[facility] [address] [place], [address] FINGERSTICK GLU 159 mg/dL High 74-106 [facility] Comment on above: Result Comment: NIKI GEMENT OF PATIENT CARE PER NURSING PROTOCOL Performed By: #### L 501.080 ####[facility] [address] [place], [address] FINGERSTICK GLU 104 mg/dL Normal 74-106 [facility] Comment on above: Result Comment: NIKI GEMENT OF PATIENT CARE PER NURSING PROTOCOL Performed By: #### L 501.080 ####[facility] [address] [place], [address] CBC W/Diff, Automatedon 04-0 2-2025 Absolute Lymph 0.97 X10 3/uL Normal 0.83-4.51 [facility] Comment on above: Performed By: #### L 500.2500, L100.0100 ####[facility] [address] [place], [address] Absolute Neut 4.3 X10 3/uL Normal 2.0-7.7 [facility] Comment on above: Performed By: #### L 500.2500, L100.0100 ####[facility] [address] [place], [address] Basophils/100 WBC (Bld) 1.0 % Normal 0-[address] [facility] Comment on above: Performed By: #### L 500.2500, L100.0100 ####[facility] [address] [place], [address] Eosinophils/100 WBC (Bld) 2.7 % Normal 0-5 [facility] Comment on above: Performed By: #### L 500.2500, L100.0100 ####[facility] [address] [place], [address] Erythrocyte distribution width (RBC) [Ratio] 14.9 % High 11.6-14.6 [facility] Comment on above: Performed By: #### L 500.2500, L100.0100 ####[facility] [address] [place], [address] Hematocrit (Bld) [Volume fraction] 31.9 % Low 40-54 [facility] Comment on above: Performed By: #### L 500.2500, L100.0100 ####[facility] [address] [place], [address] Hemoglobin (Bld) [Mass/Vol] 9.8 g/dL Low 13.0-16.5 [facility] Comment on above: Performed By: #### L 500.2500, L100.0100 ####[facility] [address] [place], [address] IG% 1.600 High 0.0-0.9 [facility] Comment on above: Result Comment: IG% - Immature Granulocytes (promyelocytes, myelocytes andmetamyelocytes) > 1% indicates that a LEFT SHIFT is Present. Performed By: #### L 500.2500, L100.0100 ####[facility] [address] [place], [address] Lymphocytes/100 WBC (Bld) 15.4 % Low 19-41 [facility] Comment on above: Performed By: #### L 500.2500, L100.0100 ####[facility] [address] [place], [address] MCH (RBC) [Entitic mass] 27.5 pg Normal 27.0-32.0 [facility] Comment on above: Performed By: #### L 500.2500, L100.0100 ####[facility] [address] [place], [address] MCHC (RBC) [Mass/Vol] 30.7 g/dL Low 32-36 [facility] Comment on above: Performed By: #### L 500.2500, L100.0100 ####[facility] [address] [place], [address] MCV (RBC) [Entitic vol] 89.6 fL Normal 80-[address] [facility] Comment on above: Performed By: #### L 500.2500, L100.0100 ####[facility] [address] [place], [address] Monocytes/100 WBC (Bld) 11.1 % High 0-[address] [facility] Comment on above: Performed By: #### L 500.2500, L100.0100 ####[facility] [address] [place], [address] Neutrophils/100 WBC (Bld) 68.2 % Normal 47-70 [facility] Comment on above: Performed By: #### L 500.2500, L100.0100 ####[facility] [address] [place], [address] Nucleated RBC (Bld) [#/Vol] 0 10*3/uL Normal 0-5 [facility] Comment on above: Performed By: #### L 500.2500, L100.0100 ####[facility] [address] [place], [address] Platelet mean volume (Bld) [Entitic vol] 8.9 fL Normal 6.2-12.0 [facility] Comment on above: Performed By: #### L 500.2500, L100.0100 ####[facility] [address] [place], [address] Platelets (Bld) [#/Vol] 357 10*3/uL Normal 150-450 [facility] Comment on above: Performed By: #### L 500.2500, L100.0100 ####[facility] [address] [place], [address] RBC (Bld) [#/Vol] 3.56 10*6/uL Low 4.6-6.2 [facility] Comment on above: Performed By: #### L 500.2500, L100.0100 ####[facility] [address] [place], [address] RDW SD 49.1 fl High 35.1-43.9 [facility] Comment on above: Performed By: #### L 500.2500, L100.0100 ####[facility] [address] [place], [address] WBC (Bld) [#/Vol] 6.3 10*3/uL Normal 4.4-11.0 [facility] Comment on above: Performed By: #### L 500.2500, L100.0100 ####[facility] [address] [place], [address] Bedside Glucoseon 05-23-2024 FINGERSTICK GLU 101 mg/dL Normal 74-106 [facility] Comment on above: Result Comment: NIKI GEMENT OF PATIENT CARE PER NURSING PROTOCOL Performed By: #### L 501.080 ####[facility] [address] [place], [address] FINGERSTICK GLU 177 mg/dL High 74-106 [facility] Comment on above: Result Comment: NIKI GEMENT OF PATIENT CARE PER NURSING PROTOCOL Performed By: #### L 501.080 ####[facility] [address] [place], [address] FINGERSTICK GLU 139 mg/dL High 74-106 [facility] Comment on above: Result Comment: NIKI GEMENT OF PATIENT CARE PER NURSING PROTOCOL Performed By: #### L 501.080 ####[facility] [address] [place], [address] [facility] deOrdered By: Fredis Moon on 05-23-2024 Bedside Glucose (Misc Panel) 139 mg/dL High 74-106 [facility] Comment on above: MANAGEMENT OF PATIEN T CARE PER NURSING PROTOCOL HH, Hemoglobin AND Hematocri ton 05-23-2024 Hematocrit (Bld) [Volume fraction] 30.6 % Low 40-54 [facility] Comment on above: Performed By: #### L 100.0600 ####[facility] [address] [place], [address] Hemoglobin (Bld) [Mass/Vol] 9.5 g/dL Low 13.0-16.5 [facility] Comment on above: Performed By: #### L 100.0600 ####[facility] [address] [place], [address] Hematocrit Auto (Bld) [Volum e fraction]Ordered By: Fredis Moon on 05-23-2024 Hematocrit (Bld) [Volume fraction] 30.6 % Low 40-54 [facility] Hemoglobin measurementOrdere d By: Fredis Moon on 05-23-2024 Hemoglobin (Bld) [Mass/Vol] 9.5 g/dL Low 13.0-16.5 [facility] Lower GI hemoglobin IA Ql (S tl)Ordered By: Fredis Moon on 05-23-2024 Stool Occult Blood (KERLINE) [facility] Stool Occult Blood iFOBon STOB Normal [facility] Comment on above: Performed By: #### M 100.7900 ####[facility] [address] [place], [address] Stool gastrointestinal hemog lobin detection by immunologic methodOrdered By: Fredis Moon on 05-23-2024 Lower GI hemoglobin IA Ql (Stl) [facility] Bedside Glucoseon 05-22-2024 FINGERSTICK GLU 135 mg/dL High 74-106 [facility] Comment on above: Result Comment: NIKI GEMENT OF PATIENT CARE PER NURSING PROTOCOL Performed By: #### L 501.080 ####[facility] [address] [place], [address] FINGERSTICK GLU 192 mg/dL High [address] [place] [address] Comment on above: Result Comment: NIKI GEMENT OF PATIENT CARE PER NURSING PROTOCOL Performed By: #### L 501.080 ####[facility] [address] [place], [address] FINGERSTICK GLU 98 mg/dL Normal -106 [facility] Comment on above: Result Comment: NIKI GEMENT OF PATIENT CARE PER NURSING PROTOCOL Performed By: #### L 501.080 ####[facility] [address] [place], [address] FINGERSTICK GLU 152 mg/dL High [address] [place] [address] Comment on above: Result Comment: NIKI GEMENT OF PATIENT CARE PER NURSING PROTOCOL Performed By: #### L 501.080 ####[facility] [address] [place], [address] Bedside Glucoseon 05-21-2024 FINGERSTICK GLU 151 mg/dL High [address] [place] [address] Comment on above: Result Comment: NIKI GEMENT OF PATIENT CARE PER NURSING PROTOCOL Performed By: #### L 501.080 ####[facility] [address] [place], [address] FINGERSTICK GLU 243 mg/dL High [address] [place] [address] Comment on above: Result Comment: NIKI GEMENT OF PATIENT CARE PER NURSING PROTOCOL Performed By: #### L 501.080 ####[facility] [address] [place], [address] FINGERSTICK GLU 270 mg/dL High [address] [place] [address] Comment on above: Result Comment: NIKI GEMENT OF PATIENT CARE PER NURSING PROTOCOL Performed By: #### L 501.080 ####[facility] [address] [place], [address] FINGERSTICK GLU 173 mg/dL High 74-106 [facility] Comment on above: Result Comment: NIKI GEMENT OF PATIENT CARE PER NURSING PROTOCOL Performed By: #### L 501.080 ####[facility] [address] [place], [address] Bedside Glucoseon 05-20-2024 FINGERSTICK GLU 179 mg/dL High 74-106 [facility] Comment on above: Result Comment: NIKI GEMENT OF PATIENT CARE PER NURSING PROTOCOL Performed By: #### L 501.080 ####[facility] [address] [place], [address] FINGERSTICK GLU 69 mg/dL Low 74-106 [facility] Comment on above: Result Comment: NIKI GEMENT OF PATIENT CARE PER NURSING PROTOCOL Performed By: #### L 501.080 ####[facility] [address] [place], [address] FINGERSTICK GLU 195 mg/dL High -106 [facility] Comment on above: Result Comment: NIKI GEMENT OF PATIENT CARE PER NURSING PROTOCOL Performed By: #### L 501.080 ####[facility] [address] [place], [address] FINGERSTICK GLU 130 mg/dL High 74-106 [facility] Comment on above: Result Comment: NIKI GEMENT OF PATIENT CARE PER NURSING PROTOCOL Performed By: #### L 501.080 ####[facility] [address] [place], [address] Bedside Glucoseon 05-19-2024 FINGERSTICK GLU 167 mg/dL High -[address] [place] [address] Comment on above: Result Comment: NIKI GEMENT OF PATIENT CARE PER NURSING PROTOCOL Performed By: #### L 501.080 ####[facility] [address] [place], [address] FINGERSTICK GLU 158 mg/dL High 74-106 [facility] Comment on above: Result Comment: NIKI GEMENT OF PATIENT CARE PER NURSING PROTOCOL Performed By: #### L 501.080 ####[facility] [address] [place], [address] FINGERSTICK GLU 178 mg/dL High 74-106 [facility] Comment on above: Result Comment: NIKI GEMENT OF PATIENT CARE PER NURSING PROTOCOL Performed By: #### L 501.080 ####[facility] [address] [place], [address] FINGERSTICK GLU 215 mg/dL High 74-106 [facility] Comment on above: Result Comment: NIKI GEMENT OF PATIENT CARE PER NURSING PROTOCOL Performed By: #### L 501.080 ####[facility] [address] [place], [address] Bedside Glucoseon 05-18-2024 FINGERSTICK GLU 87 mg/dL Normal 74-106 [facility] Comment on above: Result Comment: NIKI GEMENT OF PATIENT CARE PER NURSING PROTOCOL Performed By: #### L 501.080 ####[facility] [address] [place], [address] FINGERSTICK GLU 79 mg/dL Normal 74-106 [facility] Comment on above: Result Comment: NIKI GEMENT OF PATIENT CARE PER NURSING PROTOCOL Performed By: #### L 501.080 ####[facility] [address] [place], [address] FINGERSTICK GLU 164 mg/dL High 74-106 [facility] Comment on above: Result Comment: NIKI GEMENT OF PATIENT CARE PER NURSING PROTOCOL Performed By: #### L 501.080 ####[facility] [address] [place], [address] FINGERSTICK GLU 231 mg/dL High 74-106 [facility] Comment on above: Result Comment: NIKI GEMENT OF PATIENT CARE PER NURSING PROTOCOL Performed By: #### L 501.080 ####[facility] [address] [place], [address] FINGERSTICK GLU 202 mg/dL High 74-106 [facility] Comment on above: Result Comment: NIKI ROMERO OF PATIENT CARE PER NURSING PROTOCOL Performed By: #### L 501.080 ####[facility] [address] [place], [address] HH, Hemoglobin AND Hematocri ton 05-18-2024 Hematocrit (Bld) [Volume fraction] 29.5 % Low 40-54 [facility] Comment on above: Order Comment: 24 HO URS POST TRANSFUSION Performed By: #### L 100.0600 ####[facility] [address] [place], [address] Hemoglobin (Bld) [Mass/Vol] 9.9 g/dL Low 13.0-16.5 [facility] Comment on above: Order Comment: 24 HO URS POST TRANSFUSION Performed By: #### L 100.0600 ####[facility] [address] [place], [address] Venous Duplex US - Andrew Extre mon 05-18-2024 Venous Duplex US - Andrew Extrem Normal [facility] Venous duplex ultrasound rep ortOrdered By: Daysi Monterroso on 05-18-2024 US Vein [facility] [address] [place] [address] Venous Duplex US - Andrew Extrem 05/18/24 1013 MR#: [id number] Acct: [id number] Name: Joaquin THRASHER Rep #:[id number] 3 : 1940 84 From: Daysi Clayton [...] Dictated: 05/18/24 1013 Date Transcribed: 05/18/24 1811 Compound Finisher: Signed [facility] Work Phone: [phone] 05-17-2024 [id number] Patient Choice Patient Name: FARHANA THRASHER Date of : 1940 Normal [facility] Absolute neutrophil countOrd ered By: Fredis Moon on 05-17-2024 Neutrophils (Bld) [#/Vol] 6.9 10*3/uL 2.0-7.7 [facility] Anion gap in Serum or Plasma Ordered By: Fredis Moon on 05-17-2024 Anion gap [Moles/Vol] 12 mmol/L 5-15 [facility] BRCon 05-17-2024 RC Normal [facility] Comment on above: Result Comment: [id number] OP RC TRANSFUSED 05/17/24 [id number] OP RC TRANSFUSED 05/17/24 1042 Performed By: #### B TS, [facility] ####[facility] [address] [place], [address] BUN/creatinine ratioOrdered By: Fredis Moon on 05-17-2024 Urea nitrogen/Creatinine [Mass ratio] 23.7 mg/mg High [facility]20 [facility] Basic Metabolic Profile (BMP )on 05-17-2024 BUN/CRE 23.7 RATIO High [address] [place] [address] Comment on above: Performed By: #### L 500.2500, L100.0100 ####[facility] [address] [place], [address] Calcium [Mass/Vol] 8.7 mg/dL Normal 7.6-11.0 [facility] Comment on above: Performed By: #### L 500.2500, L100.0100 ####[facility] [address] [place], [address] Chloride [Moles/Vol] 103 mmol/L Normal 98-108 [facility] Comment on above: Performed By: #### L 500.2500, L100.0100 ####[facility] [address] [place], [address] CO2 [Moles/Vol] 23.3 mmol/L Normal 21.0-32.0 [facility] Comment on above: Performed By: #### L 500.2500, L100.0100 ####[facility] [address] [place], [address] Creatinine [Mass/Vol] 1.10 mg/dL Normal 0.70-1.20 [facility] Comment on above: Performed By: #### L 500.2500, L100.0100 ####[facility] [address] [place], [address] ECRCL 56.65 ml/min Normal 50-250 [facility] Comment on above: Performed By: #### L 500.2500, L100.0100 ####[facility] [address] [place], [address] GAP 12 Normal 5-15 [facility] Comment on above: Performed By: #### L 500.2500, L100.0100 ####[facility] [address] [place], [address] GFR/1.73 sq M.predicted among non-blacks MDRD (S/P/Bld) [Vol rate/Area] 67 mL/min/{1.73_m2} Normal >60 [facility] Comment on above: Result Comment: mL/m in/1.73m2 CKD-EPI Creatinine Equation (2020) Performed By: #### L 500.2500, L100.0100 ####[facility] [address] [place], [address] Glucose [Mass/Vol] 262 mg/dL High 70-99 [facility] Comment on above: Performed By: #### L 500.2500, L100.0100 ####[facility] [address] [place], [address] Potassium [Moles/Vol] 4.1 mmol/L Normal 3.3-5.1 [facility] Comment on above: Performed By: #### L 500.2500, L100.0100 ####[facility] [address] [place], [address] Sodium [Moles/Vol] 138 mmol/L Normal 133-145 [facility] Comment on above: Performed By: #### L 500.2500, L100.0100 ####[facility] [address] [place], [address] Urea nitrogen [Mass/Vol] 26 mg/dL High 4-19 [facility] Comment on above: Performed By: #### L 500.2500, L100.0100 ####[facility] [address] [place], [address] Bedside Glucoseon 05-17-2024 FINGERSTICK GLU 205 mg/dL High 74-106 [facility] Comment on above: Result Comment: NIKI GEMENT OF PATIENT CARE PER NURSING PROTOCOL Performed By: #### L 501.080 ####[facility] [address] [place], [address] FINGERSTICK GLU 351 mg/dL High 74-106 [facility] Comment on above: Result Comment: NIKI GEMENT OF PATIENT CARE PER NURSING PROTOCOL Performed By: #### L 501.080 ####[facility] [address] [place], [address] FINGERSTICK GLU 291 mg/dL High 74-106 [facility] Comment on above: Result Comment: NIKI GEMENT OF PATIENT CARE PER NURSING PROTOCOL Performed By: #### L 501.080 ####[facility] [address] [place], [address] FINGERSTICK GLU 225 mg/dL High 74-106 [facility] Comment on above: Result Comment: NIKI GEMENT OF PATIENT CARE PER NURSING PROTOCOL Performed By: #### L 501.080 ####[facility] [address] [place], [address] Blood band neutrophil count as percentage of total leukocytesOrdered By: Fredis Moon on 05-17-2024 Band form neutrophils/100 WBC (Bld) 1 % 0-5 [facility] Blood basophils/100 leukocyt esOrdered By: Fredis Perryok on 05-17-2024 Basophils/100 WBC (Bld) 1 % 0-[address] [facility] Blood eosinophils/100 leukoc ytesOrdered By: Fredis Red on 05-17-2024 Eosinophils/100 WBC (Bld) 0 % 0-5 [facility] Blood lymphocytes/100 leukoc ytesOrdered By: Fredis Perryok on 05-17-2024 Lymphocytes/100 WBC (Bld) 8 % Low 19-41 [facility] Blood metamyelocytes/100 carl kocytesOrdered By: Fredis Perryok on 05-17-2024 Metamyelocytes/100 WBC (Bld) 2 % High 0-1 [facility] Blood monocytes/100 leukocyt esOrdered By: Fredis Perryok on 05-17-2024 Monocytes/100 WBC (Bld) 10 % 0-[address] [facility] Blood polychromasia detectio n by light microscopyOrdered By: Fredis Perryok on 05-17-2024 Polychromasia LM Ql (Bld) 1+ [facility] Blood segmented neutrophils/ 100 leukocytesOrdered By: Fredis Perryok on 05-17-2024 Segmented neutrophils/100 WBC (Bld) 78 % High 47-70 [facility] Carbon dioxide, total [Moles /volume] in Central venous bloodOrdered By: Fredis Moon on 05-17-2024 CO2 [Moles/Vol] 23.3 mmol/L 21.0-32.0 [facility] Cells counted Molgen (Bld/Ti ss) [#]Ordered By: Fredis Moon on 05-17-2024 Differential Total Cells Counted 100 MANUAL DIFF [facility] Chloride assayOrdered By: Mir Moon on 05-17-2024 Chloride [Moles/Vol] 103 mmol/L 98-108 [facility] Erythrocyte distribution wid th ratioOrdered By: Fredis Moon on 05-17-2024 Erythrocyte distribution width (RBC) [Ratio] 14.9 % High 11.6-14.6 [facility] Erythrocyte distribution wid th standard deviationOrdered By: Fredis Moon on 05-17-2024 Erythrocyte distribution width (RBC) [Entitic vol] 47.3 fL High 35.1-43.9 [facility] Estimation of creatinine melissa aranceOrdered By: Fredis Moon on 05-17-2024 Estimated Creatinine Clearance Calc 56.65 ml/min 50-250 [facility] GFR/1.73 sq M.predicted [place] non-blacks MDRD (S/P/Bld) [Vol rate/Area]Ordered By: Fredis Moon on 05-17-2024 Estimated GFR (MDRD) Non-Af Amer 67 >60 [facility] Comment on above: mL/min/1.73m2 CKD-EP I Creatinine Equation (2020) Lymphocytes Auto (Unsp spec) [#/Vol]Ordered By: Fredis Moon 05-17-2024 Lymphocytes (Bld) [#/Vol] 0.69 10*3/uL Low 0.83-4.51 [facility] MCV (mean corpuscular volume ) determinationOrdered By: Fredis Moon 05-17-2024 MCV (RBC) [Entitic vol] 87.6 fL 80-94 [facility] Mean corpuscular hemoglobin (MCH) determinationOrdered By: Fredis Moon 05-17-2024 MCH (RBC) [Entitic mass] 27.4 pg 27.0-32.0 [facility] Mean corpuscular hemoglobin concentration (MCHC) determinationOrdered By: Fredis Moon 05-17-2024 MCHC (RBC) [Mass/Vol] 31.3 g/dL Low 32-[facility] Mean platelet volume determi nationOrdered By: Fredis Moon 05-17-2024 Platelet mean volume (Bld) [Entitic vol] 9.3 fL 6.2-12.0 [facility] Neutrophil percentageOrdered By: Fredis Moon 05-17-2024 Neutrophils (%) (Auto) Not Reportable [facility] Pathologist review Jones (Unsp spec) [Interp]Ordered By: Fredis Moon on 05-17-2024 Differential Pathologist's Review Ana Lilia griggs [facility] Differential Pathologist's Review Reviewed [facility] Comment on above: Previous reported re sult: Ana Lilia griggs Edited by: ALTAF on 06/06/24:1507SEE REPORT IN PATIENT'S EMR AMENDED REPORT 06/06/241506 PATH REV previously reported as: June indu Platelet countOrdered By: Mir Moon on 05-17-2024 Platelets (Bld) [#/Vol] 278 10*3/uL 150-450 [facility] Platelet estimateOrdered By: Fredis Moon on 05-17-2024 Platelets LM Ql (Bld) [facility] Platelets LM Ql (Bld)Ordered By: Fredis Moon on 05-17-2024 Platelet Estimate A [facility] Polychromasia LM Ql (Bld)Ord ered By: Fredis Moon on 05-17-2024 Polychromasia 1+ [facility] Potassium (Unsp spec) [Mass/ Vol]Ordered By: Fredis Moon on 05-17-2024 Potassium [Moles/Vol] 4.1 mmol/L 3.3-5.1 [facility] RBC Auto (Bld) [#/Vol]Ordere d By: Fredis Moon on 05-17-2024 RBC (Bld) [#/Vol] 2.59 10*6/uL Low 4.6-6.2 [facility] Review by pathologistOrdered By: Fredis Moon on 05-17-2024 Pathologist review Jones (Unsp spec) [Interp] Reviewed [facility] Comment on above: Previous reported re sult: Ana Lilia griggs Edited by: ALTAF on 06/06/24:1507SEE REPORT IN PATIENT'S EMR AMENDED REPORT 06/06/24 150 PATH REV previously reported as: June indu Segmented neutrophils/100 WB C (Bld)Ordered By: Fredis Moon on 05-17-2024 Neutrophils/100 WBC (Bld) 78 % High 47-70 [facility] Serum creatinine measurement (mass/volume)Ordered By: Fredis Moon on 05-17-2024 Creatinine [Mass/Vol] 1.10 mg/dL 0.70-1.20 [facility] Serum glucose measurement (m ass/volume)Ordered By: Fredis Moon on 05-17-2024 Glucose [Mass/Vol] 262 mg/dL High 70-99 [facility] Serum or plasma calcium mt urement (mass/volume)Ordered By: Fredis Moon on 05-17-2024 Calcium [Mass/Vol] 8.7 mg/dL 7.6-11.0 [facility] Serum or plasma urea nitroge n measurement (mass/volume)Ordered By: Fredis Moon on 05-17-2024 Urea nitrogen [Mass/Vol] 26 mg/dL High 4-19 [facility] Sodium levelOrdered By: Fredis Moon on 05-17-2024 Sodium [Moles/Vol] 138 mmol/L 133-145 [facility] Total cell countOrdered By: Fredis Moon on 05-17-2024 Cells counted Molgen (Bld/Tiss) [#] 100 MANUAL DIFF [facility] Type AND Screenon 05-17-2024 Ab SCREEN GEL PENDING Normal [facility] Comment on above: Order Comment: CMV N EG? NNumber of units to transfuse: 2Reason for Ordering Blood: AcuteAre the blood/blood products to be transfused? YIs the patient having/had surgery? YWhvinay Macias Performed By: #### B ELIN, [facility] ####[facility] [address] [place], [address] ABO and Rh group Nom (Bld) Blood group O Rh(D) positive Normal [facility] Comment on above: Order Comment: CMV N EG? NNumber of units to transfuse: 2Reason for Ordering Blood: AcuteAre the blood/blood products to be transfused? YIs the patient having/had surgery? YWhen ReadyNY Performed By: #### B ELIN, [facility] ####[facility] [address] [place], [place], [id number] White blood cell (WBC) count Ordered By: Fredis Moon on 05-17-2024 WBC (Bld) [#/Vol] 8.7 10*3/uL 4.4-11.0 [facility] 30on 05-16-2024 30 Problem: Knowledge Deficit [...] remain free of falls Outcome: Progressing Normal [facility] [id number] 05-16-2024 [id number] Next Site of Care Admission Date: 05/10/2024 05:34 AM Patient Name: FARHANA THRASHER Location: [address]/[facility] A Date of : 1940 ------- Placement Information ------- Referral Type:[facility] - New Referral ID:[id number] Provider Name:[facility] Acute Rehab Address 1:[address] Address 2: City:[place] Selection Factors:Patient/Famil y Choice State:[facility] [phone] [facility]. Requested discharge order, completed LAURA and transportation be set up. [facility] [phone] SW [facility] t [facility] TCC, RN, Facility, V[employer]er Taping Machine Offbearer, Pt and Pt's spouse notified. [facility] BASIC METABOLIC PANELon 03-2 Anion gap [Moles/Vol] 8 mmol/L Normal 3-13 [facility] Comment on above: Performed By: #### L AB103, LAB15 ####Nurse Discharge Planner: DANIELLA PEREZ ([phone])[address] Calcium [Mass/Vol] 8.9 mg/dL Normal 8.8-10.0 [facility] Comment on above: Performed By: #### L AB103, LAB15 ####Nurse Discharge Planner: DANIELLA PEREZ ([phone])[address] Chloride [Moles/Vol] 105 mmol/L Normal 98-107 [facility] Comment on above: Performed By: #### L AB103, LAB15 ####Nurse Discharge Planner: DANIELLA PEREZ ([phone])[address] CO2 [Moles/Vol] 25 mmol/L Normal 23-31 [facility] Comment on above: Performed By: #### L AB103, LAB15 ####Nurse Discharge Planner: DANIELLA [phone])[facility] [place] [address] [place] Creatinine [Mass/Vol] 1.04 mg/dL Normal 0.72-1.25 [facility] Comment on above: Performed By: #### L AB103, LAB15 ####Nurse Discharge Planner: DANIELLA PEREZ ([phone])[facility] [place] [address] [place] GLOMERULAR FILTRATION RATE ML/MIN/1.73 SQ M.PREDICTED 71.7 mL/min/1.73m*2 Normal >60.0 [facility] Comment on above: Result Comment: Calc ulation based on the Chronic Kidney Disease Epidemiology Collaboration (CKD-EPI) equation refit without adjustment for race Performed By: #### L AB103, LAB15 ####Nurse Discharge Planner: DANIELLA PEREZ ([phone])[facility] [place] [address] [place] Glucose [Mass/Vol] 206 mg/dL High 82-115 [facility] Comment on above: Performed By: #### L AB103, LAB15 ####Nurse Discharge Planner: DANIELLA PEREZ ([phone])[facility] ([facility])[address] [place] [address] [place] Potassium [Moles/Vol] 3.9 mmol/L Normal 3.5-5.1 [facility] Comment on above: Result Comment: [facility] potassium values may be up to 0.5 mmol/L lower than serum values. Performed By: #### L AB103, LAB15 ####Nurse Discharge Planner: DANIELLA PEREZ ([phone])[facility] [place] [address] [place] Sodium [Moles/Vol] 138 mmol/L Normal 136-145 [facility] Comment on above: Performed By: #### L AB103, LAB15 ####Nurse Discharge Planner: DANIELLA PEREZ ([phone])[facility])[address] [place] [address] [place] Urea nitrogen [Mass/Vol] 27 mg/dL High 9-23 [facility] Comment on above: Performed By: #### L AB103, LAB15 ####Nurse Discharge Planner: DANIELLA PEREZ ([phone])[facility] ([facility])[address] [place] [address] Basic metabolic 1998 panelon 05-16-2024 Anion gap [Moles/Vol] 8 mmol/L 3 - 13 mmol/L [facility] Calcium [Mass/Vol] 8.9 mg/dL 8.8 - 10. 0 mg/dL [facility] Chloride [Moles/Vol] 105 mmol/L 98 - 10 7 mmol/L [facility] CO2 [Moles/Vol] 25 mmol/L 23 - 31 mmol/L [facility] Creatinine [Mass/Vol] 1.04 mg/dL 0.72 - 1.25 mg/dL [facility] GFR/1.73 sq M.predicted (S/P/Bld) [Vol rate/Area] 71.7 mL/min - PINF [facility] Glucose [Mass/Vol] 206 mg/dL High 82 - 115 mg/dL [facility] Interpretation and review of laboratory results Abnormal [facility] Potassium [Moles/Vol] 3.9 mmol/L 3.5 - 5.1 mmol/L [facility] Sodium [Moles/Vol] 138 mmol/L 136 - 145 mmol/L [facility] Urea nitrogen [Mass/Vol] 27 mg/dL High 9 - 23 mg/dL [facility] Bedside Glucoseon 05-16-2024 [place] GLU 260 mg/dL High 74-106 [facility] Comment on above: Result Comment: NIKI BOYERENT OF PATIENT CARE PER NURSING PROTOCOL Performed By: #### L 501.080 ####[facility] [id number] [place], [place], [id number] CBC (HEMOGRAM)on 05-16-2024 Erythrocyte distribution width (RBC) [Ratio] 14.7 % Normal 11.5-15.0 [facility] Comment on above: Performed By: #### L AB294 ####Nurse Discharge Planner: DANIELLA PEREZ ([phone])[facility] ([facility])[address] [place] [address] Hematocrit (Bld) [Volume fraction] 23.7 % Low 40.0-52.0 [facility] Comment on above: Performed By: #### L AB294 ####Nurse Discharge Planner: DANIELLA PEREZ ([phone])[facility])[address] [place] [address] Hemoglobin (Bld) [Mass/Vol] 7.4 g/dL Low 13.0-18.0 [facility] Comment on above: Performed By: #### L AB294 ####Nurse Discharge Planner: DANIELLA PEREZ ([phone])[facility] ([facility])[address] [place] [address] MCH (RBC) [Entitic mass] 27.6 pg Normal 26.0-34.0 [facility] Comment on above: Performed By: #### L AB294 ####Nurse Discharge Planner: DANIELLA PEREZ ([phone])[facility])[address] [place] [address] MCHC 31.2 % Normal 30.5-36.0 [facility] Comment on above: Performed By: #### L AB294 ####Nurse Discharge Planner: DANIELLA PEREZ ([phone])[facility] ([facility])[address] [place] [address] MCV (RBC) [Entitic vol] 88.4 fL Normal 77.0-99.0 [facility] Comment on above: Performed By: #### L AB294 ####Nurse Discharge Planner: DANIELLA PEREZ ([phone])[facility])[address] [place] [address] Platelet mean volume (Bld) [Entitic vol] 9.4 fL Normal 9.0-12.7 [facility] Comment on above: Performed By: #### L AB294 ####Nurse Discharge Planner: DANIELLA PEREZ ([phone])[facility])[address] [place] [address] Platelets (Bld) [#/Vol] 274 10*3/uL Normal 140-440 [facility] Comment on above: Performed By: #### L AB294 ####Nurse Discharge Planner: DANIELLA PEREZ ([phone])[facility] ([facility])[address] [place] [address] RBC (Bld) [#/Vol] 2.68 10*6/uL Low 4.40-5.90 [facility] Comment on above: Performed By: #### L AB294 ####Nurse Discharge Planner: DANIELLA PEREZ ([phone])[facility] ([facility])[address] [place] [address] WBC (Bld) [#/Vol] 8.7 10*3/uL Normal 3.6-10.7 [facility] Comment on above: Performed By: #### L AB294 ####Nurse Discharge Planner: DANIELLA PEREZ ([phone])[facility] ([facility])[address] [place] [address] CBC panel Auto (Bld)on 05-16 Erythrocyte distribution width (RBC) [Ratio] 14.7 % 11.5 - 15.0 % [facility] Hematocrit (Bld) [Volume fraction] 23.7 % Low 40.0 - 52.0 % [facility] Hemoglobin (Bld) [Mass/Vol] 7.4 g/dL Low 13.0 - 18.0 g/dL [facility] Interpretation and review of laboratory results Abnormal [facility] MCH (RBC) [Entitic mass] 27.6 pg 26. 0 - 34.[address] [facility] MCHC (RBC) [Mass/Vol] 31.2 % 30.5 - 36.0 % [facility] MCV (RBC) [Entitic vol] 88.4 fL 77.0 - 99.[address] [facility] Platelet mean volume (Bld) [Entitic vol] 9.4 fL 9.0 - 12.[address] [facility] Platelets (Bld) [#/Vol] 274 10*3/uL 140 - 440 10*3/uL [facility] RBC (Bld) [#/Vol] 2.68 10*6/uL Low 4.40 - 5.9 0 10*6/uL [facility] WBC (Bld) [#/Vol] 8.7 10*3/uL 3.6 - 10.7 10*3/uL [facility] - Chemistry and C hemistry - challengeon 05-16-2024 Glucose [Mass/Vol] 224 mg/dL High 70 - 100 mg/dL [facility] Magnesium [Mass/Vol] 2.2 mg/dL 1.6 - 2 .6 mg/dL [facility] MAGNESIUMon 05-16-2024 Magnesium [Mass/Vol] 2.2 mg/dL Normal 1.6-2.6 [facility] Comment on above: Result Comment: JEAN CARLOS Nuñez COMMENTS: Higher values can be expected in females during menses. Performed By: #### L AB103, LAB15 ####Nurse Discharge Planner: DANIELLA PEREZ ([phone])[address] Magnesium [Mass/Vol]on 05-16 Interpretation and review of laboratory results Normal [facility] No Panel Informationon 05-16 Interpretation and review of laboratory results Abnormal [facility] Nursing Noteon 05-16-2024 Nursing Note Report called to [facility]. [facility] Progress Noteon 05-16-2024 Progress Note Cardiothoracic Surgery [...] Patient tolerated well. Will continue to monitor. [facility] Progress Note PHYSICAL THERAPY [facility] Treatment Note Name/MRN: Marcus Thrasher ([id number]) Date of : 1940 Age: 84 y.o. [...] 28 Minutes (tp; gait) Abi Rios PTA [facility] Progress Note Department of Internal Medicine Division of Endocrinology, Diabetes, & Metabolism Endocrinology Note Patient Name: Farhana Thrasher : 1940 AGE: 84 y.o. Room/Bed: T1116/T1116 A Admission Date: 05/10/2024 Visit Date: 05/16/2024 Reason for Endocrine Consult: post op heart Provider/Team Requesting Consult: CTS PCP: KELSEY MOON MD Outpt Wedger Machine: No ASSESSMENT: DM2 with hyperglycemia and watermaster insulin Stress hyperglycemia CABGX3 HLD/CAD Obesity Body [...] Units, SubCUTAneous, (more content not included)... Normal [facility] XR CHEST 1 VIEWon 05-16-2024 XR CHEST 1 VIEW [facility] 1940 [id number] Exam Date/Time: 05/16/2024 05:22 Procedure: XR CHEST [...] Signed Date/Time: 05/16/2024 5:34 AM EDT Normal [facility] XR Chest Single viewon 05-16 [facility] Radiology Study observation (narrative) [facility] BASIC METABOLIC PANELon 04-23 Anion gap [Moles/Vol] 8 mmol/L Normal 3-13 [facility] Comment on above: Performed By: #### L AB15, [id number] ####Nurse Discharge Planner: DANIELLA PEREZ ([phone])[facility] ([facility])[address] [place] [address] Calcium [Mass/Vol] 8.9 mg/dL Normal 8.8-10.0 [facility] Comment on above: Performed By: #### L AB15, [id number] ####Nurse Discharge Planner: DANIELLA PEREZ ([phone])[facility] [place] [address] Chloride [Moles/Vol] 108 mmol/L High 98-107 [facility] Comment on above: Performed By: #### L AB15, [id number] ####Nurse Discharge Planner: DANIELLA PEREZ ([phone])[facility] ([facility])[address] [place] [address] CO2 [Moles/Vol] 24 mmol/L Normal 23-31 [facility] Comment on above: Performed By: #### L AB15, [id number] ####Nurse Discharge Planner: DANIELLA PEREZ ([phone])[facility] ([facility])[address] [place] [address] Creatinine [Mass/Vol] 0.97 mg/dL Normal 0.72-1.25 [facility] Comment on above: Performed By: #### L AB15, [id number] ####Nurse Discharge Planner: DANIELLA PEREZ ([phone])[facility])[address] [place] [address] [place] GLOMERULAR FILTRATION RATE ML/MIN/1.73 SQ M.PREDICTED 77.9 mL/min/1.73m*2 Normal >60.0 [facility] Comment on above: Result Comment: Calc ulation based on the Chronic Kidney Disease Epidemiology Collaboration (CKD-EPI) equation refit without adjustment for race Performed By: #### L AB15, [id number] ####Nurse Discharge Planner: DANIELLA PEREZ ([phone])[facility])[address] [place] [address] [place] Glucose [Mass/Vol] 189 mg/dL High 82-115 [facility] Comment on above: Performed By: #### L AB15, [id number] ####Nurse Discharge Planner: DANIELLA [phone])[facility] ([facility])[address] [place] [address] Potassium [Moles/Vol] 3.8 mmol/L Normal 3.5-5.1 [facility] Comment on above: Result Comment: [facility] potassium values may be up to 0.5 mmol/L lower than serum values. Performed By: #### L AB15, [id number] ####Nurse Discharge Planner: DANIELLA PEREZ ([phone])[facility] ([facility])[address] [place] [address] Sodium [Moles/Vol] 140 mmol/L Normal 136-145 [facility] Comment on above: Performed By: #### L AB15, [id number] ####Nurse Discharge Planner: DANIELLA PEREZ ([phone])[facility] ([facility])[address] [place] [address] Urea nitrogen [Mass/Vol] 25 mg/dL High 9-23 [facility] Comment on above: Performed By: #### L AB15, [id number] ####Nurse Discharge Planner: DANIELLA PEREZ ([phone])[facility] [place] [address] Basic metabolic 1998 panelon 05-15-2024 Anion gap [Moles/Vol] 8 mmol/L 3 - 13 mmol/L [facility] Calcium [Mass/Vol] 8.9 mg/dL 8.8 - 10. 0 mg/dL [facility] Chloride [Moles/Vol] 108 mmol/L High 98 - 10 7 mmol/L [facility] CO2 [Moles/Vol] 24 mmol/L 23 - 31 mmol/L [facility] Creatinine [Mass/Vol] 0.97 mg/dL 0.72 - 1.25 mg/dL [facility] GFR/1.73 sq M.predicted (S/P/Bld) [Vol rate/Area] 77.9 mL/min - PINF [facility] Glucose [Mass/Vol] 189 mg/dL High 82 - 115 mg/dL [facility] Interpretation and review of laboratory results Abnormal [facility] Potassium [Moles/Vol] 3.8 mmol/L 3.5 - 5.1 mmol/L [facility] Sodium [Moles/Vol] 140 mmol/L 136 - 145 mmol/L [facility] Urea nitrogen [Mass/Vol] 25 mg/dL High 9 - 23 mg/dL [facility] CBC (HEMOGRAM)on 05-15-2024 Erythrocyte distribution width (RBC) [Ratio] 14.6 % Normal 11.5-15.0 [facility] Comment on above: Performed By: #### L [id number] ####Nurse Discharge Planner: DANIELLA PEREZ ([phone])[facility])[address] [place] [address] Hematocrit (Bld) [Volume fraction] 23.4 % Low 40.0-52.0 [facility] Comment on above: Performed By: #### L AB294 ####Nurse Discharge Planner: DANIELLA PEREZ ([phone])[address] Hemoglobin (Bld) [Mass/Vol] 7.3 g/dL Low 13.0-18.0 [facility] Comment on above: Performed By: #### L AB294 ####Nurse Discharge Planner: DANIELLA PEREZ ([phone])[facility])[address] [place] [address] MCH (RBC) [Entitic mass] 27.1 pg Normal 26.0-34.0 [facility] Comment on above: Performed By: #### L AB294 ####Nurse Discharge Planner: DANIELLA PEREZ ([phone])[facility])[address] [place] [address] MCHC 31.2 % Normal 30.5-36.0 [facility] Comment on above: Performed By: #### L AB294 ####Nurse Discharge Planner: DANIELLA PEREZ ([phone])[address] MCV (RBC) [Entitic vol] 87.0 fL Normal 77.0-99.0 [facility] Comment on above: Performed By: #### L AB294 ####Nurse Discharge Planner: DANIELLA PEREZ ([phone])[facility])[address] [place] [address] Platelet mean volume (Bld) [Entitic vol] 9.2 fL Normal 9.0-12.7 [facility] Comment on above: Performed By: #### L [id number] ####Nurse Discharge Planner: DANIELLA PEREZ ([phone])[facility])[address] [place] [address] Platelets (Bld) [#/Vol] 218 10*3/uL Normal 140-440 [facility] Comment on above: Performed By: #### L AB294 ####Nurse Discharge Planner: DANIELLA PEREZ ([phone])[facility])[address] [place] [address] RBC (Bld) [#/Vol] 2.69 10*6/uL Low 4.40-5.90 [facility] Comment on above: Performed By: #### L [id number] ####Nurse Discharge Planner: DANIELLA PEREZ ([phone])[facility])[address] [place] [address] WBC (Bld) [#/Vol] 7.5 10*3/uL Normal 3.6-10.7 [facility] Comment on above: Performed By: #### L AB294 ####Nurse Discharge Planner: DANIELLA PEREZ ([phone])[facility])[address] [place] [address] CBC panel Auto (Bld)on 05-15 Erythrocyte distribution width (RBC) [Ratio] 14.6 % 11.5 - 15.0 % [facility] Hematocrit (Bld) [Volume fraction] 23.4 % Low 40.0 - 52.0 % [facility] Hemoglobin (Bld) [Mass/Vol] 7.3 g/dL Low 13.0 - 18.0 g/dL [facility] Interpretation and review of laboratory results Abnormal [facility] MCH (RBC) [Entitic mass] 27.1 pg 26. 0 - 34.[address] [facility] MCHC (RBC) [Mass/Vol] 31.2 % 30.5 - 36.0 % [facility] MCV (RBC) [Entitic vol] 87 fL 77.0 - 99.[address] [facility] Platelet mean volume (Bld) [Entitic vol] 9.2 fL 9.0 - 12.[address] [facility] Platelets (Bld) [#/Vol] 218 10*3/uL 140 - 440 10*3/uL [facility] RBC (Bld) [#/Vol] 2.69 10*6/uL Low 4.40 - 5.9 0 10*6/uL [facility] WBC (Bld) [#/Vol] 7.5 10*3/uL 3.6 - 10.7 10*3/uL [facility] ECG 12-LEADon 05-15-2024 ECG 12-LEAD IMPRESSION: SINUS RHYTHM Incomplete RBBB and LAFB Nonspecific T abnormalities, lateral leads Electronically Signed On 05-15-2024 13:14:24 EDT by Holden Bowles Normal [facility] Laboratory - Chemistry and C hemistry - challengeon 05-15-2024 Glucose [Mass/Vol] 266 mg/dL High 70 - 100 mg/dL [facility] Glucose [Mass/Vol] 167 mg/dL High 70 - 100 mg/dL [facility] Glucose [Mass/Vol] 208 mg/dL High 70 - 100 mg/dL [facility] Glucose [Mass/Vol] 244 mg/dL High 70 - 100 mg/dL [facility] Magnesium [Mass/Vol] 2.2 mg/dL 1.6 - 2 .6 mg/dL [facility] Glucose [Mass/Vol] 197 mg/dL High 70 - 100 mg/dL [facility] MAGNESIUMon 05-15-2024 Magnesium [Mass/Vol] 2.2 mg/dL Normal 1.6-2.6 [facility] Comment on above: Result Comment: JEAN CARLOS Nuñez COMMENTS: Higher values can be expected in females during menses. Performed By: #### L AB15, [id number] ####Nurse Discharge Planner: DANIELLA PEREZ ([phone])[facility] ([address] Magnesium [Mass/Vol]on 05-15 Interpretation and review of laboratory results Normal [facility] No Panel Informationon 05-15 Interpretation and review of laboratory results Abnormal [facility] Interpretation and review of laboratory results Abnormal [facility] [employer] CV EPIPHANY [facility] [employer] Interpretation and review of laboratory results Abnormal [facility] Interpretation and review of laboratory results Abnormal [facility] Interpretation and review of laboratory results Abnormal [facility] [employer] No Panel InformationOrdered By: Holden Bowles on 05-15-2024 P [place] 154 degrees [facility] Work Phone: MA Interval 170 ms [facility] [employer] Work Phone: QRS [place] -44 degrees [facility] Work Phone: QRSD Interval 118 ms [employer] Work Phone: QT Interval 391 ms [facility] [employer] Work Phone: QTC Interval 461 ms [facility] [employer] Work Phone: T Wave [place] 64 degrees [employer] Work Phone: [employer] Work Phone: Progress Noteon 05-15-2024 Progress Note PHYSICAL THERAPY [facility] Treatment Note Name/MRN: Marcus Thrasher ([id number]) Date of : 1940 Age: 84 y.o. [...] 27 Minutes (tp; gait) Abi Rios PTA [facility] Progress Note - Attestation signed by Catalina [...] Thrasher : 1940 AGE: 84 y.o. Room/Bed: [facility]/[address] Admission Date: 05/10/2024 Visit Date: 05/15/2024 Reason for Endocrine Consult: post op heart Provider/Team Requesting Consult: CTS PCP: KELSEY MOON MD Outpt Wedger Machine: No ASSESSMENT: DM2 with hyperglycemia and watermaster insulin Stress hyperglycemia CABGX3 HLD/CAD Obesity Body [...] and Rhy (more content not included)... Normal [facility] Vital signsOrdered By: Nicole Bowles on 05-15-2024 Heart rate 84 /min bpm [facility] [employer] Phone: XR CHEST 1 VIEWon 05-15-2024 XR CHEST 1 VIEW Patient Name: FARHANA [facility]RASHER : 1940 [id number] Exam Date/Time: 05/15/2024 05:21 Procedure: XR CHEST [...] Signed Date/Time: 05/15/2024 5:53 AM EDT Normal [facility] XR Chest Single viewon 05-15 [facility] Radiology Study observation (narrative) [facility] XR Chest Single viewOrdered By: Lina Adler on 05-15-2024 [facility] [employer] Phone: 30on 05-14-2024 30 Problem: Potential for [...] Nutritional Intake Outcome: Adequate for Discharge Normal [facility] BASIC METABOLIC PANELon 04-23 Anion gap [Moles/Vol] 8 mmol/L Normal 05-04 [facility] Comment on above: Performed By: #### L AB103, LAB15 ####Nurse Discharge Planner: DANIELLA PEREZ ([phone])[facility] [place] [address] Calcium [Mass/Vol] 8.7 mg/dL Low 8.8-10.0 [facility] Comment on above: Performed By: #### L AB103, LAB15 ####Nurse Discharge Planner: DANIELLA PEREZ ([phone])[facility] [place] [address] Chloride [Moles/Vol] 107 mmol/L Normal 98-107 [facility] Comment on above: Performed By: #### L AB103, LAB15 ####Nurse Discharge Planner: DANIELLA PEREZ ([phone])[facility] ([facility])[address] [place] [address] CO2 [Moles/Vol] 23 mmol/L Normal 23-31 [facility] Comment on above: Performed By: #### L 103, LAB15 ####Nurse Discharge Planner: DANIELLA PEREZ ([phone])[facility] ([facility])[address] [place] [address] Creatinine [Mass/Vol] 1.10 mg/dL Normal 0.72-1.25 [facility] Comment on above: Performed By: #### L AB103, LAB15 ####Nurse Discharge Planner: DANIELLA PEREZ ([phone])[facility] ([facility])[address] [place] [address] [place] GLOMERULAR FILTRATION RATE ML/MIN/1.73 SQ M.PREDICTED 67.0 mL/min/1.73m*2 Normal >60.0 [facility] Comment on above: Result Comment: Calc ulation based on the Chronic Kidney Disease Epidemiology Collaboration (CKD-EPI) equation refit without adjustment for race Performed By: #### L AB103, LAB15 ####Nurse Discharge Planner: DANIELLA PEERZ ([phone])[facility] ([facility])[address] [place] [address] [place] Glucose [Mass/Vol] 196 mg/dL High 82-115 [facility] Comment on above: Performed By: #### L AB103, LAB15 ####Nurse Discharge Planner: DANIELLA [phone])[facility] ([facility])[address] [place] [address] Potassium [Moles/Vol] 3.8 mmol/L Normal 3.5-5.1 [facility] Comment on above: Result Comment: [facility] potassium values may be up to 0.5 mmol/L lower than serum values. Performed By: #### L AB103, LAB15 ####Nurse Discharge Planner: DANIELLA PEREZ ([phone])[facility] [place] [address] Sodium [Moles/Vol] 138 mmol/L Normal 136-145 [facility] Comment on above: Performed By: #### L AB103, LAB15 ####Nurse Discharge Planner: DANIELLA PEREZ ([phone])[facility])[address] [place] [address] Urea nitrogen [Mass/Vol] 30 mg/dL High 9-23 [facility] Comment on above: Performed By: #### L AB103, LAB15 ####Nurse Discharge Planner: DANIELLA PEREZ ([phone])[facility])[address] [place] [address] Basic metabolic 1998 panelon 05-14-2024 Anion gap [Moles/Vol] 8 mmol/L 3 - 13 mmol/L [facility] Calcium [Mass/Vol] 8.7 mg/dL Low 8.8 - 10. 0 mg/dL [facility] Chloride [Moles/Vol] 107 mmol/L 98 - 10 7 mmol/L [facility] CO2 [Moles/Vol] 23 mmol/L 23 - 31 mmol/L [facility] Creatinine [Mass/Vol] 1.1 mg/dL 0.72 - 1.25 mg/dL [facility] GFR/1.73 sq M.predicted (S/P/Bld) [Vol rate/Area] 67 mL/min - PINF [facility] Glucose [Mass/Vol] 196 mg/dL High 82 - 115 mg/dL [facility] Interpretation and review of laboratory results Abnormal [facility] Potassium [Moles/Vol] 3.8 mmol/L 3.5 - 5.1 mmol/L [facility] Sodium [Moles/Vol] 138 mmol/L 136 - 145 mmol/L [facility] Urea nitrogen [Mass/Vol] 30 mg/dL High 9 - 23 mg/dL [facility] CBC (HEMOGRAM)on 05-14-2024 Erythrocyte distribution width (RBC) [Ratio] 14.6 % Normal 11.5-15.0 [facility] Comment on above: Performed By: #### L [id number] ####Nurse Discharge Planner: DANIELLA PEREZ ([phone])[address] Hematocrit (Bld) [Volume fraction] 23.7 % Low 40.0-52.0 [facility] Comment on above: Performed By: #### L [id number] ####Nurse Discharge Planner: DANIELLA PEREZ ([phone])[address] Hemoglobin (Bld) [Mass/Vol] 7.6 g/dL Low 13.0-18.0 [facility] Comment on above: Performed By: #### L [id number] ####Nurse Discharge Planner: DANIELLA PEREZ ([phone])[facility])[address] [place] [address] MCH (RBC) [Entitic mass] 27.5 pg Normal 26.0-34.0 [facility] Comment on above: Performed By: #### L [id number] ####Nurse Discharge Planner: DANIELLA PEREZ ([phone])[address] MCHC 32.1 % Normal 30.5-36.0 [facility] Comment on above: Performed By: #### L [id number] ####Nurse Discharge Planner: DANIELLA PEREZ ([phone])[address] MCV (RBC) [Entitic vol] 85.9 fL Normal 77.0-99.0 [facility] Comment on above: Performed By: #### L [id number] ####Nurse Discharge Planner: DANIELLA PEREZ ([phone])[facility])[address] [place] [address] Platelet mean volume (Bld) [Entitic vol] 9.7 fL Normal 9.0-12.7 [facility] Comment on above: Performed By: #### L [id number] ####Nurse Discharge Planner: DANIELLA PEREZ ([phone])[facility])[address] [place] [address] Platelets (Bld) [#/Vol] 179 10*3/uL Normal 140-440 [facility] Comment on above: Performed By: #### L [id number] ####Nurse Discharge Planner: DANIELLA PEREZ ([phone])[facility])[address] [place] [address] RBC (Bld) [#/Vol] 2.76 10*6/uL Low 4.40-5.90 [facility] Comment on above: Performed By: #### L [id number] ####Nurse Discharge Planner: DANIELLA PEREZ ([phone])[facility])[address] [place] [address] WBC (Bld) [#/Vol] 8.5 10*3/uL Normal 3.6-10.7 [facility] Comment on above: Performed By: #### L [id number] ####Nurse Discharge Planner: DANIELLA PEREZ ([phone])[facility])[address] [place] [address] CBC panel Auto (Bld)on 05-14 Erythrocyte distribution width (RBC) [Ratio] 14.6 % 11.5 - 15.0 % [facility] Hematocrit (Bld) [Volume fraction] 23.7 % Low 40.0 - 52.0 % [facility] Hemoglobin (Bld) [Mass/Vol] 7.6 g/dL Low 13.0 - 18.0 g/dL [facility] Interpretation and review of laboratory results Abnormal [facility] MCH (RBC) [Entitic mass] 27.5 pg 26. 0 - 34.[address] [facility] MCHC (RBC) [Mass/Vol] 32.1 % 30.5 - 36.0 % [facility] MCV (RBC) [Entitic vol] 85.9 fL 77.0 - 99.[address] [facility] Platelet mean volume (Bld) [Entitic vol] 9.7 fL 9.0 - 12.[address] [facility] Platelets (Bld) [#/Vol] 179 10*3/uL 140 - 440 10*3/uL [facility] RBC (Bld) [#/Vol] 2.76 10*6/uL Low 4.40 - 5.9 0 10*6/uL [facility] WBC (Bld) [#/Vol] 8.5 10*3/uL 3.6 - 10.7 10*3/uL [facility] - Chemistry and C hemistry - challengeon 05-14-2024 Glucose [Mass/Vol] 150 mg/dL High 70 - 100 mg/dL [facility] Glucose [Mass/Vol] 356 mg/dL High 70 - 100 mg/dL [facility] Glucose [Mass/Vol] 225 mg/dL High 70 - 100 mg/dL [facility] Magnesium [Mass/Vol] 2.3 mg/dL 1.6 - 2 .6 mg/dL [facility] MAGNESIUMon 05-14-2024 Magnesium [Mass/Vol] 2.3 mg/dL Normal 1.6-2.6 [facility] Comment on above: Result Comment: JEAN CARLOS Nuñez COMMENTS: Higher values can be expected in females during menses. Performed By: #### L AB103, [id number] ####Nurse Discharge Planner: DANIELLA PEREZ ([phone])[address] Magnesium [Mass/Vol]on 05-14 Interpretation and review of laboratory results Normal [facility] No Panel InformationOrdered By: Daniella Perez on 05-14-[address] [facility] Work Phone: Clinical Information b6mtfDVzWQBnqAUhUTd wN cwiocSrIRQeqMZdD2Mfff uxXJbiDK4sNC5hcApisSC tdWIiUXEjKfLkx4msu308 jDCtw7mzHIRRWWchPMLAP Xn3bQqqF01ky0B7PtpcI8 xyZWQwXGdyZWVuMFxibHV qTGu8EJIipKRjqnSzCaMw MCUneRScwLG7SENbMZ5zw hvcHNgpHGfpKTLnscJ8PW OhqBDdS1WhHJRiDK7ydcd gPJB4GQszDHAiNUC3LzPy APJxe0Pjxqs3OxSdeOOpV FxwbGFpblxmczIwXGNmMS EKDVQbAKEjln8qSRO3TCX ydGVyeSBkaXNlYXNlKVxj ZjAgIFxwYXJ9 [facility] [employer] Work Phone: Disclaimer l5faoIApVUJqgENyUeMp M RAmPMVkn8ndQBXtpXGqKi EwMzNcZnRuYmpcdWMxXGR nKlExz0yoh307qLHdm5ny EXBwVpZ9aFFjEPKbE36fF YRRG593XOOiSTnxj8enx1 AsJKMveJKzz6F5GLFPKWr fXKYSFWf5uTxzN67pr5R3 FuwhI4sdIYYfUQEgN9HyQ C9jVPCtFwl6HPX1RMB4XU LsBVFmT5RzGB2dMLJrtJU vNRy5i5utiCbsOJOcDHS5 x2mtBZydjoTwYR9lvk4ko Pm4v3gtqdVmAOGmZKNqfK NDJLQwN1IxcQblKi9nlMh 3tZhjJiiaBMQ6Ezz7IA6a jq33nsl1tNsjXZWzyvfuS qX0CHpsYUNcxobbIJg5OS ctOLZudEV6NUIfuYUdT2A pYEVuLE9gcda0AXS8XNdp RGEwFfJ1GTBimRCcFEIxg XfuHHrxe706POA2UiDvWZ 8cV1Toa0I2uH7tvCFsWZH wwCHeScMxPGEkbx8rdPLu PBond4RhNUL0kdI4vGPpe CYuGGDkKM96Zqsgc9CoRa rzFNX3HBOfdkCbo8Cjq9y fQhFqlbTfS4miT0AtHERq HTKrBRFwSeCieeJoo9Oue 8NcsEMmbRu0c5qcJXUhXF OlbPllb0kqKXY0WSEjB9Z 5sLBub2brYVlsRWQdjDO3 plZ1RAOadUJvB8DnoX5tE TXzCH1njha9a7njXTW8RV hwZPXzDoU8nuH6XOTorBQ oLXMbxMmfITqmh699VMP8 TlUbLIDvp1XtH6NahAmxF 26dzDidA55vXKUobXlqgK 7ylHzmkB5wRmMvUeRuINt xbFxwbGFpblxmMVxmczE2 DHoxmoqmTGXkXHxkN4siA qWlGTJspFkiCHray1YsIK DsDECvGZDfLIuvW4bmpJ1 nxqwaCRzoDNYniWpyo2re InGidOJ3RR1lgvDkXWBrt KnokiJ0zlPwfIyoqD8reQ 6elLbudE4wvTNgoLR7mdf sIGluIHNpdHUgaHlicmlk mAgwlOvhlplqbY1cEUA2k ONyDKO0fZRoZNFnCXFjUM YauR10qf1nqQVqljUuO0W zS9TjzYMdlCryQykunGTw wVSuTc8mcFMdUI7iDKEma PJzT4QbIB6qRMYepqbjOQ IgVGhlIHVzZSBvZiBvbmU gk8GwrQ6cCGDwKBBcKN27 lmVbfmF4iQMnURQswlEss GVzdHMgaXMgcmVndWxhdG NbAKQxTXYnXFDoMTh7gNA pm4DkD1bcmSLugcBbD4Us dRWrAZHAHP9hYAnva9Mdf ZTcxHRbr1JfIRGkOPZupU 8iJTUcWT7yNXKmUCfvCSA cdcRusw8eflDoLAUpBJCs N4ZimedqwLunpbHhXNQic r7dsiEvTER7GFPtLEJmlE jmpBGjsLNcPOUykaD9r1M cDOJjf2OwC5RgwORgFIPy sIRoQGW3u2NesL1pQSywf RGhLQDsTG3atPLlZUWqEM NsZWFyZWQgYnkgdGhlIFV YHDMjc0CbQD4rYGGrmToc LLCqzU7wk9CkMTDnx98fR EZEQSkuIFRoZSBGREEgaG FzIGRldGVybWluZWQgdGh hiCTipHTyYDVeCSIeZO1s TJSsagMqiVJog3GjeRCfr xBew3SuqrJxNZGhWQW0Pj BccGFyXHBhciBBbGwgaW1 ofP8fw0RfhB5kYSwbakNw pQOuFz0vaTHkFP7rZXJsz mFmZmluIGVtYmVkZGVkIH Hxa9M5EA0jNTMpwc3rcfj vlYDxfH5elVGvylEnYL8o VP1nY2S9dCGlQJFjztAkm 2eaFUr7xIWxPMKczBDcxJ InMontTEJ1PIXmPCC3tlB larWuIEDzuCrcgVZ1kWFz HATsUQIaTBHcIV50W3Soj 6RmZ6dgNI34NJAaJAZkDO OahiUvx1snCCTol1mmGVD rvRWoN7SzDJWvfGYeymlc XaAeQOF6EPOzNYE1gCGgM DFbU5SbeYEjeNDolZ03CC 6zsCD9XE8eSFB3QCvljG0 uOlXWxI80eg1vxKM6b6Oi RT6mJ4MnYLGqh7O5nhCiZ ILtXZ5oaOKlWRYjSLHfuE lkYXRlZCBvbiBkZWNhbGN rHdgpRXG8oTAnoCKeEmDW ABF8kQHbCZVdu6IbJOAvB FLfscXutcWsYVSmNEJ7lV RmJNGwdMFlb71iI6j6RK2 uyCibYDFrdPVcODTeh1Fv dFSulUf8tNZhUnFmGDdjL ZGkMPoauQj3xPN1XI8wMH PdX0QdE7fgaMJgXYVxALP zwZAohl7xbHZfsV== [facility] Work Phone: Gross Description e7dstMMwNPKddGYnLKrr N qqtmlYsLSJytVYfV8Ekwa bbTBljNZ9wIV4kdRvczUA hsLZsMPNtPxVwy0wet815 yLXar5agVLKWUDakYFIOR Xp7lIvrK91bf3T5PmqsB7 7ccROlUBX7KRDaYSSvpTX eBHByVOU5APPgeRDcH3ds HDYiFI8qmythNXgwFNugS SCzvFR7VJUldIJqU4AlED SkFOrgYYTjuex1RlJiOg9 vdGVyeTcyMFxwYXJkXHBs QOmmEVZkAeZhTjGuPHn5N ATzdV2dJd6gwQLrhA6fpF ClUYhnPGUqSK2oDJH1RUE qW9YsqZnscelvmBXiI14z g01igjswTRU7DIZ8YiOla eUcnYizAAI4iHhmZEDtK6 CfXNFqurElu30dCH6yAKp cpEzabs35sUf2MMAcRZpu jQPeGQHsu58rqCE4nZCxk WUgdGhhdCBtZWFzdXJlID HhUzS7QODkJPJjsUwpn1y 5dYUfjpWtj9LlkBruFRBm ZHMgYmVpbmcgYmlmdXJjY YZiHBUzmnKzcJikMR03mB HjMV5fNNX4vmSjMRJiIxB 7ETPnGSRmtJ9zQPTtOGIt aJFdiF1lgbWfqiJvHQP5C PsloVUorWWcyiLaIK31cC CnjFcho9UqlQp7pUUqUQl oZD0cEKEkVPZeTIK1GY2d XHBhcn0= [employer] Work Phone: Pathologist Interpretation Location [facility], [address] [place] [address], [facility] [address], CLIA: [id number]; Joint Commission: HCO [id number]; CAP: [id number] [facility] [employer] Phone: Pathology report final diagnosis Narrative d4olyETnWYAkjJLyVFipN utrkfJxTHNzxQNhK7Xisb pnEEyaLF4oYO1fdPoeoZR suGMxWJVoMnQcz3gdl259 dPWoj1siCYSVRSbxUDXTH Px0q3biGVKUCBBdCV6aM3 17XGYyIENvdXJpZXIgTmV 3D071GWUxDSchjzqmwP5k swt2bGtcO66sq7D2BcaqY 718MCsugFdsdFAiXweab1 nawAJ5GXboc0SlEWN3CBv uZCF4W3hjoTK3vGMtcDrs vZYdJF2ci4kcyWC7hnGaF MN2sEpsbXS8gDwhzxdrw7 dxiGA7yQA4ZMrvbPK0UXp mFvEtR2weKKNvdO5uR58a U0uuGISzwOloGXurVOVtw SX1QBR2MLBsj1elBGHziH KziYShYdFuQDO8YdP6UMw kGJD0cJuarBN5AZkdlY5e JUKfG09jGlUllOkwYvFpG mktMzYwfXtcbGlzdGxldm VsXGxldmVsbmZjMjNcbGV 7OEanLmFhPeQdlNR9ULwt RyEgbCM3ZPrnbORmjON2Q LtylIJ9LLi5SCy7JFevDE 65iHglaXQ0OBousA5hLKS bM19fDuOwhOduKWpqTCVn FID4ZX01DVuvb3ZyHOXed YtoWBYfoV2oCgHbBZebnz VsbmZjbjIzXGxldmVsamM bEPciqpGex7WlywIcaWM1 DRltlwHkqLR8oBstFTBsf C5oHRG1YT02nPuxaHY4BM ckeW2cCHQoZ46cAaJpvNd mSGCoUUKmNPB6MK12QNlf s8QiJYLurJdrXDQeuT2vT zIzXGxldmVsbmZjbjIzXG qpymUfdqEzLIpwqwFzk5A kwwPmaNW3FOlcqjIznTR9 nDvoWSCbnJsrIqKkGTs7P Jf1t7kwIPZcrG09oOWmem M0eKyeOWhzkBT0KrKfQfs tMzYwfXtcbGlzdGxldmVs MRoyvdYnivUjKsWfmGM7F EdmRqKcHcXaeFZ9RMgsWi ZmtYF9OPxoxSSbiKM3JEt jhEA4DIq0FEs6RSphGH39 uCdlrWX5AZtzvI1kYHZeY 31cZjJcbGkzMjQwXGZpLT W4TT65HMzie6ZrCMXoaDd cNRWqfJ5hHqUcRDykliSx bmZjbjIzXGxldmVsamMwX WdaifNvv1BjyhAukAB0WG qhatDvmCW6nQmfWQRwnP0 lCUT8WW54kBoagTY0UTii rJ9bKIBnC68qPrKcyVodS MRvTFJrHJO3KN76GWxyu4 GlEVNhkWtbNIRzrP0nNqD zXGxldmVsbmZjbjIzXGxl tbGnbtQkIWcwiqZcb2Nja rVyfIB1MOmjmwWeqAK0aR sxZUZbsMtcPpHxPFw6MLl 5s3xfTRGxjS05hTVimcR3 mQumHAhlxAS3EMWmEdrzS zYwfXtcbGlzdGxldmVsXG gnukLkrxBiLyDycYH3LFx lMdLfZgTjnIH3ITppVoFp sAJ5HUwnaKQldZI8JOzzb LA0EMv0SVb5XKemOE31uK pftJV3MYigmG5bMGEwR81 yYpBrkZu4PFKxNSSmHTY8 YU98QVzdr3UrYUSqaSbvK EPkjP9xBsQdEAdhrtVboe ZjbjIzXGxldmVsamMwXGx nrgLef2XdhaUcbYC6WAbm gvVxxMV9kBtzHKZwbR2pI IU6ES89kYjwbYP9QGiygS 1nUAKxU13eIzEjfJz1VAJ dICCtCNC7BY54gWyoAgmc jMW0l3QvmeNxYPW3WSRpL VhzRcdqfDN2x7WzagBwZB TxgKbxgNzkNDReBAO8MPK 7CFtod2OmeqYapnkgTVYw yR13ZHawqsB4qNmsNHIbn rfoPmG0KDayPPBkubkwUN r7EFqwBWCzsTC8OSKhpVO dI0RyGNRiHL5hkty5SWL5 WNhfPUEkZgD3DTRegKRrW AYqwFbhIWkgp382VBR1Lr ChLJPayfFuiWhlkC3mMtE yKEVKOVhWEJOWA0VSTtOY WSBBUlRFUlksIEVOREFSV MVFHEDPV96CLNKdLMIjhF xwYXJcbGkzNjBcZmktMzY uAMwsdiU8GDfngcZofZx8 vCXceRnboL8wOeOeGIUCO UxDSUZJRUQgQVRIRVJPTU RDX8ZQIUAOXQBWBPFJCZO DQcpYDU3nmGIiqK== [employer] Work Phone: [employer] Work Phone: No Panel Informationon 05-14 Interpretation and review of laboratory results Abnormal [facility] [employer] [facility] [employer] [facility] [employer] Interpretation and review of laboratory results Abnormal [facility] [employer] [facility] [employer] [facility] [employer] Interpretation and review of laboratory results Abnormal [facility] [employer] Progress Noteon 05-14-2024 Progress Note Department of Internal Medicine Division of Endocrinology, Diabetes, & Metabolism Endocrinology Note Patient Name: Farhana Thrasher : 1940 AGE: 84 y.o. Room/Bed: T1-116/T1-116 A Admission Date: 05/10/2024 Visit Date: 05/14/2024 Reason for Endocrine Consult: post op heart Provider/Team Requesting Consult: CTS PCP: KELSEY MOON MD Outpt Wedger Machine: No ASSESSMENT: DM2 with hyperglycemia and watermaster insulin Stress hyperglycemia CABGX3 HLD/CAD Obesity Body [...] Units, SubCUTAneo (more content not included)... Normal [facility] Progress Note - Attestation signed by Luz Hough DO at 05/14/2024 2:29 PM I have personally performed a iloy-ma-jxye diagnostic evaluation on this patient on date of service 05/14/24. History, labs, imaging studies, and electronic medical record have been reviewed by me. This note documented by the []housekeeping attendant [x]JULIO CESAR reflects my history, exam, and [...] A total (more content not included)... Normal [facility] XR CHEST 1 VIEWon 05-14-2024 XR CHEST 1 VIEW [facility] 1940 [id number] Exam Date/Time: 05/14/2024 09:12 Procedure: XR CHEST [...] Signed Date/Time: 05/14/2024 9:23 AM EDT Normal [facility] XR Chest Single viewon 05-14 [facility] Radiology Study observation (narrative) [facility] Chest Single viewOrdered By: Mara Plata on 05-14-[address] [facility] Work Phone: 30on 05-13-2024 30 Problem: [...] Nutritional Intake Outcome: Adequate for Discharge Normal [facility] BASIC METABOLIC PANELon 04-23 Anion gap [Moles/Vol] 8 mmol/L Normal 3-13 [facility] Comment on above: Performed By: #### L AB15, [id number] ####Nurse Discharge Planner: DANIELLA PEREZ ([phone])[address] Calcium [Mass/Vol] 8.9 mg/dL Normal 8.8-10.0 [facility] Comment on above: Performed By: #### L AB15, [id number] ####Nurse Discharge Planner: DANIELLA PEREZ ([phone])[facility] ([facility])[address] [place] [address] Chloride [Moles/Vol] 107 mmol/L Normal 98-107 [facility] Comment on above: Performed By: #### L AB15, [id number] ####Nurse Discharge Planner: DANIELLA PEREZ ([phone])[facility] ([facility])[address] [place] [address] CO2 [Moles/Vol] 24 mmol/L Normal 23-31 [facility] Comment on above: Performed By: #### L AB15, [id number] ####Nurse Discharge Planner: DANIELLA PEREZ ([phone])[facility] ([facility])[address] [place] [address] Creatinine [Mass/Vol] 1.07 mg/dL Normal 0.72-1.25 [facility] Comment on above: Performed By: #### L AB15, [id number] ####Nurse Discharge Planner: DANIELLA PEREZ ([phone])[facility] ([facility])[address] [place] [address] [place] GLOMERULAR FILTRATION RATE ML/MIN/1.73 SQ M.PREDICTED 69.3 mL/min/1.73m*2 Normal >60.0 [facility] Comment on above: Result Comment: Calc ulation based on the Chronic Kidney Disease Epidemiology Collaboration (CKD-EPI) equation refit without adjustment for race Performed By: #### L AB15, [id number] ####Nurse Discharge Planner: DANIELLA PEREZ ([phone])[facility] ([facility])[address] [place] [address] Glucose [Mass/Vol] 183 mg/dL High 82-115 [facility] Comment on above: Performed By: #### L AB15, [id number] ####Nurse Discharge Planner: DANIELLA PEREZ ([phone])[facility] ([facility])[address] [place] [address] [place] Potassium [Moles/Vol] 4.1 mmol/L Normal 3.5-5.1 [facility] Comment on above: Result Comment: [facility] potassium values may be up to 0.5 mmol/L lower than serum values. Performed By: #### L AB15, [id number] ####Nurse Discharge Planner: DANIELLA PEREZ ([phone])[facility] ([facility])[address] [place] [address] Sodium [Moles/Vol] 139 mmol/L Normal 136-145 [facility] Comment on above: Performed By: #### L AB15, [id number] ####Nurse Discharge Planner: DANIELLA PEREZ ([phone])[facility] ([facility])[address] [place] [address] Urea nitrogen [Mass/Vol] 25 mg/dL High 9-23 [facility] Comment on above: Performed By: #### L AB15, [id number] ####Nurse Discharge Planner: DANIELLA PEREZ ([phone])[facility] ([facility])[address] [place] [address] Basic metabolic 1998 panelon 05-13-2024 Anion gap [Moles/Vol] 8 mmol/L 3 - 13 mmol/L [facility] Calcium [Mass/Vol] 8.9 mg/dL 8.8 - 10. 0 mg/dL [facility] Chloride [Moles/Vol] 107 mmol/L 98 - 10 7 mmol/L [facility] CO2 [Moles/Vol] 24 mmol/L 23 - 31 mmol/L [facility] Creatinine [Mass/Vol] 1.07 mg/dL 0.72 - 1.25 mg/dL [facility] GFR/1.73 sq M.predicted (S/P/Bld) [Vol rate/Area] 69.3 mL/min - PINF [facility] Glucose [Mass/Vol] 183 mg/dL High 82 - 115 mg/dL [facility] Interpretation and review of laboratory results Abnormal [facility] Potassium [Moles/Vol] 4.1 mmol/L 3.5 - 5.1 mmol/L [facility] Sodium [Moles/Vol] 139 mmol/L 136 - 145 mmol/L [facility] Urea nitrogen [Mass/Vol] 25 mg/dL High 9 - 23 mg/dL [facility] CBC (HEMOGRAM)on 05-13-2024 Erythrocyte distribution width (RBC) [Ratio] 14.6 % Normal 11.5-15.0 [facility] Comment on above: Performed By: #### L [id number] ####Nurse Discharge Planner: DANIELLA PEREZ ([phone])[facility] ([facility])[address] [place] [address] Hematocrit (Bld) [Volume fraction] 25.6 % Low 40.0-52.0 [facility] Comment on above: Performed By: #### L [id number] ####Nurse Discharge Planner: DANIELLA PEREZ ([phone])[facility] ([facility])[address] [place] [address] Hemoglobin (Bld) [Mass/Vol] 8.2 g/dL Low 13.0-18.0 [facility] Comment on above: Performed By: #### L [id number] ####Nurse Discharge Planner: DANIELLA PEREZ ([phone])[facility] ([facility])[address] [place] [address] MCH (RBC) [Entitic mass] 27.6 pg Normal 26.0-34.0 [facility] Comment on above: Performed By: #### L [id number] ####Nurse Discharge Planner: DANIELLA PEREZ ([phone])[facility])[address] [place] [address] MCHC 32.0 % Normal 30.5-36.0 [facility] Comment on above: Performed By: #### L [id number] ####Nurse Discharge Planner: DANIELLA PEREZ ([phone])[facility] ([facility])[address] [place] [address] MCV (RBC) [Entitic vol] 86.2 fL Normal 77.0-99.0 [facility] Comment on above: Performed By: #### L [id number] ####Nurse Discharge Planner: DANIELLA PEREZ ([phone])[facility])[address] [place] [address] Platelet mean volume (Bld) [Entitic vol] 10.2 fL Normal 9.0-12.7 [facility] Comment on above: Performed By: #### L [id number] ####Nurse Discharge Planner: DANIELLA PEREZ ([phone])[facility])[address] [place] [address] Platelets (Bld) [#/Vol] 161 10*3/uL Normal 140-440 [facility] Comment on above: Performed By: #### L [id number] ####Nurse Discharge Planner: DANIELLA PEREZ ([phone])[facility] ([facility])[address] [place] [address] RBC (Bld) [#/Vol] 2.97 10*6/uL Low 4.40-5.90 [facility] Comment on above: Performed By: #### L [id number] ####Nurse Discharge Planner: DANIELLA PEREZ ([phone])[facility] ([facility])[address] [place] [address] WBC (Bld) [#/Vol] 10.5 10*3/uL Normal 3.6-10.7 [facility] Comment on above: Performed By: #### L [id number] ####Nurse Discharge Planner: DANIELLA PEREZ ([phone])[facility] ([facility])[address] [place] [address] CBC panel Auto (Bld)Ordered By: Joel Nagel on 05-13-2024 Erythrocyte distribution width (RBC) [Ratio] 14.6 % 11.5 - 15.0 % [facility] Hematocrit (Bld) [Volume fraction] 25.6 % Low 40.0 - 52.0 % [facility] Hemoglobin (Bld) [Mass/Vol] 8.2 g/dL Low 13.0 - 18.0 g/dL [facility] Interpretation and review of laboratory results Abnormal [facility] MCH (RBC) [Entitic mass] 27.6 pg 26. 0 - 34.[address] [facility] MCHC (RBC) [Mass/Vol] 32 % 30.5 - 36.0 % [facility] MCV (RBC) [Entitic vol] 86.2 fL 77.0 - 99.[address] [facility] Platelet mean volume (Bld) [Entitic vol] 10.2 fL 9.0 - 12.[address] [facility] Platelets (Bld) [#/Vol] 161 10*3/uL 140 - 440 10*3/uL [facility] RBC (Bld) [#/Vol] 2.97 10*6/uL Low 4.40 - 5.9 0 10*6/uL [facility] WBC (Bld) [#/Vol] 10.5 10*3/uL 3.6 - 10.7 10*3/uL [facility] - Chemistry and C hemistry - challengeon 05-13-2024 Glucose [Mass/Vol] 285 mg/dL High 70 - 100 mg/dL [facility] Glucose [Mass/Vol] 185 mg/dL High 70 - 100 mg/dL [facility] Glucose [Mass/Vol] 248 mg/dL High 70 - 100 mg/dL [facility] Glucose [Mass/Vol] 276 mg/dL High 70 - 100 mg/dL [facility] Magnesium [Mass/Vol] 2.1 mg/dL 1.6 - 2 .6 mg/dL [facility] MAGNESIUMon 05-13-2024 Magnesium [Mass/Vol] 2.1 mg/dL Normal 1.6-2.6 [facility] Comment on above: Result Comment: JEAN CARLOS Nuñez COMMENTS: Higher values can be expected in females during menses. Performed By: #### L [id number], [id number] ####Nurse Discharge Planner: DANIELLA PEREZ ([phone])[facility] ([address] Magnesium [Mass/Vol]on 05-13 Interpretation and review of laboratory results Normal [facility] No Panel Informationon 05-13 Interpretation and review of laboratory results Abnormal [facility] Interpretation and review of laboratory results Abnormal [facility] Interpretation and review of laboratory results Abnormal [facility] Interpretation and review of laboratory results Abnormal [facility] Progress Noteon 05-13-2024 Progress Note - Attestation signed by Luz Hough DO at 05/13/2024 12:21 PM I have personally performed a [id number] diagnostic evaluation on this patient on date of service 05/13/24. History, labs, imaging studies, and electronic medical record have been reviewed by me. This note documented by the []housekeeping attendant [x]JULIO CESAR reflects my history, exam, and [...] -endocrine following, insulin per their recs Cardiothoracic Surgery/[facility] Progress Note PATIENT NAME: Farhana Thrasher DATE: [...] anemia/consumptive t (more content not included)... Normal [facility] Progress Note Department of Internal Medicine Division of Endocrinology, Diabetes, & Metabolism Endocrinology Note Patient Name: Farhana Thrasher : 1940 AGE: 84 y.o. Room/Bed: [facility]116 A Admission Date: 05/10/2024 Visit Date: 05/13/2024 Reason for Endocrine Consult: post op heart Provider/Team Requesting Consult: CTS PCP: KELSEY MOON MD Outpt Wedger Machine: No ASSESSMENT: DM2 with hyperglycemia and watermaster insulin Stress hyperglycemia CABGX3 HLD/CAD Obesity Body [...] BID pantoprazole, (more content not included)... Normal [facility] XR CHEST 1 VIEWon 05-13-2024 XR CHEST 1 VIEW [facility] 1940 [id number] Exam Date/Time: 05/13/2024 05:34 Procedure: XR CHEST [...] Signed Date/Time: 05/13/2024 5:44 AM EDT Normal [facility] XR Chest Single viewon 05-13 [facility] Radiology Study observation (narrative) [facility] XR Chest Single viewOrdered By: Kvng Martin on 05-13-[address] [facility] Work Phone: 30on 05-12-2024 30 Problem: [...] Goal: Assess Nutritional Intake Outcome: Progressing Normal [facility] BASIC METABOLIC PANELon -2 Anion gap [Moles/Vol] 8 mmol/L Normal 3-13 [facility] Comment on above: Performed By: #### L AB103, LAB15 ####Nurse Discharge Planner: DANIELLA PEREZ ([phone])[facility] ([facility])[address] [place] [address] Calcium [Mass/Vol] 8.4 mg/dL Low 8.8-10.0 [facility] Comment on above: Performed By: #### L AB103, LAB15 ####Nurse Discharge Planner: DANIELLA PEREZ ([phone])[facility] ([facility])[address] [place] [address] Chloride [Moles/Vol] 107 mmol/L Normal 98-107 [facility] Comment on above: Performed By: #### L AB103, LAB15 ####Nurse Discharge Planner: DANIELLA PEREZ ([phone])[facility] [place] [address] CO2 [Moles/Vol] 22 mmol/L Low 23-31 [facility] Comment on above: Performed By: #### L AB103, LAB15 ####Nurse Discharge Planner: DANIELLA PEREZ ([phone])[facility] ([facility])[address] [place] [address] Creatinine [Mass/Vol] 0.82 mg/dL Normal 0.72-1.25 [facility] Comment on above: Performed By: #### L AB103, LAB15 ####Nurse Discharge Planner: DANIELLA PEERZ ([phone])[facility])[address] [place] [address] GLOMERULAR FILTRATION RATE ML/MIN/1.73 SQ M.PREDICTED 87.7 mL/min/1.73m*2 Normal >60.0 [facility] Comment on above: Result Comment: Calc ulation based on the Chronic Kidney Disease Epidemiology Collaboration (CKD-EPI) equation refit without adjustment for race Performed By: #### L AB103, LAB15 ####Nurse Discharge Planner: DANIELLA PEREZ ([phone])[facility])[address] [place] [address] Glucose [Mass/Vol] 164 mg/dL High 82-115 [facility] Comment on above: Performed By: #### L AB103, LAB15 ####Nurse Discharge Planner: DANIELLA PEREZ ([phone])[facility])[address] [place] [address] Potassium [Moles/Vol] 4.3 mmol/L Normal 3.5-5.1 [facility] Comment on above: Result Comment: [facility] potassium values may be up to 0.5 mmol/L lower than serum values. Performed By: #### L AB103, LAB15 ####Nurse Discharge Planner: DANIELLA PEREZ ([phone])[facility])[address] [place] [address] Sodium [Moles/Vol] 137 mmol/L Normal 136-145 [facility] Comment on above: Performed By: #### L AB103, LAB15 ####Nurse Discharge Planner: DANIELLA PEREZ ([phone])[address] Urea nitrogen [Mass/Vol] 18 mg/dL Normal 9-23 [facility] Comment on above: Performed By: #### L AB103, LAB15 ####Nurse Discharge Planner: DANIELLA PEREZ ([phone])[facility])[address] [place] [address] Basic metabolic 1998 panelon 05-12-2024 Anion gap [Moles/Vol] 8 mmol/L 3 - 13 mmol/L [facility] Calcium [Mass/Vol] 8.4 mg/dL Low 8.8 - 10. 0 mg/dL [facility] Chloride [Moles/Vol] 107 mmol/L 98 - 10 7 mmol/L [facility] CO2 [Moles/Vol] 22 mmol/L Low 23 - 31 mmol/L [facility] Creatinine [Mass/Vol] 0.82 mg/dL 0.72 - 1.25 mg/dL [facility] GFR/1.73 sq M.predicted (S/P/Bld) [Vol rate/Area] 87.7 mL/min - PINF [facility] Glucose [Mass/Vol] 164 mg/dL High 82 - 115 mg/dL [facility] Interpretation and review of laboratory results Abnormal [facility] Potassium [Moles/Vol] 4.3 mmol/L 3.5 - 5.1 mmol/L [facility] Sodium [Moles/Vol] 137 mmol/L 136 - 145 mmol/L [facility] Urea nitrogen [Mass/Vol] 18 mg/dL 9 - 23 mg/dL [facility] CBC (HEMOGRAM)on 05-12-2024 Erythrocyte distribution width (RBC) [Ratio] 14.8 % Normal 11.5-15.0 [facility] Comment on above: Performed By: #### L [id number] ####Nurse Discharge Planner: DANIELLA PEREZ ([phone])[address] Hematocrit (Bld) [Volume fraction] 22.9 % Low 40.0-52.0 [facility] Comment on above: Performed By: #### L [id number] ####Nurse Discharge Planner: DANIELLA PEREZ ([phone])[address] Hemoglobin (Bld) [Mass/Vol] 7.5 g/dL Low 13.0-18.0 [facility] Comment on above: Performed By: #### L [id number] ####Nurse Discharge Planner: DANIELLA PEREZ ([phone])[facility])[address] [place] [address] MCH (RBC) [Entitic mass] 27.8 pg Normal 26.0-34.0 [facility] Comment on above: Performed By: #### L AB294 ####Nurse Discharge Planner: DANIELLA PEREZ ([phone])[address] MCHC 32.8 % Normal 30.5-36.0 [facility] Comment on above: Performed By: #### L [id number] ####Nurse Discharge Planner: DANIELLA PEREZ ([phone])[facility] ([facility])[address] [place] [address] MCV (RBC) [Entitic vol] 84.8 fL Normal 77.0-99.0 S [facility] Comment on above: Performed By: #### L [id number] ####Nurse Discharge Planner: DANIELLA PEREZ ([phone])[facility] ([facility])[address] [place] [address] Platelet mean volume (Bld) [Entitic vol] 9.7 fL Normal 9.0-12.7 [facility] Comment on above: Performed By: #### L [id number] ####Nurse Discharge Planner: DANIELLA PEREZ ([phone])[facility])[address] [place] [address] Platelets (Bld) [#/Vol] 103 10*3/uL Low 140-440 [facility] Comment on above: Performed By: #### L [id number] ####Nurse Discharge Planner: DANIELLA PEREZ ([phone])[facility])[address] [place] [address] RBC (Bld) [#/Vol] 2.70 10*6/uL Low 4.40-5.90 [facility] Comment on above: Performed By: #### L [id number] ####Nurse Discharge Planner: DANIELLA PEREZ ([phone])[facility])[address] [place] [address] WBC (Bld) [#/Vol] 9.3 10*3/uL Normal 3.6-10.7 [facility] Comment on above: Performed By: #### L [id number] ####Nurse Discharge Planner: DANIELLA PEREZ ([phone])[facility])[address] [place] [address] CBC panel Auto (Bld)on 05-12 Erythrocyte distribution width (RBC) [Ratio] 14.8 % 11.5 - 15.0 % [facility] Hematocrit (Bld) [Volume fraction] 22.9 % Low 40.0 - 52.0 % [facility] Hemoglobin (Bld) [Mass/Vol] 7.5 g/dL Low 13.0 - 18.0 g/dL [facility] Interpretation and review of laboratory results Abnormal [facility] MCH (RBC) [Entitic mass] 27.8 pg 26. 0 - 34.[address] [facility] MCHC (RBC) [Mass/Vol] 32.8 % 30.5 - 36.0 % [facility] MCV (RBC) [Entitic vol] 84.8 fL 77.0 - 99.[address] [facility] Platelet mean volume (Bld) [Entitic vol] 9.7 fL 9.0 - 12.[address] [facility] Platelets (Bld) [#/Vol] 103 10*3/uL Low 140 - 440 10*3/uL [facility] RBC (Bld) [#/Vol] 2.7 10*6/uL Low 4.40 - 5.9 0 10*6/uL [facility] WBC (Bld) [#/Vol] 9.3 10*3/uL 3.6 - 10.7 10*3/uL [facility] - Chemistry and C hemistry - challengeon 05-12-2024 Glucose [Mass/Vol] 185 mg/dL High 70 - 100 mg/dL [facility] Glucose [Mass/Vol] 213 mg/dL High 70 - 100 mg/dL [facility] Glucose [Mass/Vol] 168 mg/dL High 70 - 100 mg/dL [facility] Glucose [Mass/Vol] 200 mg/dL High 70 - 100 mg/dL [facility] Magnesium [Mass/Vol] 2 mg/dL 1.6 - 2 .6 mg/dL [facility] Laboratory - Coagulationon 0 05-12-2024 aPTT Coag (PPP) [Time] 43.6 s High 20.0 - 30.[address] [facility] INR Coag (PPP) [Relative time] 1.2 {INR} High 0.9 - 1.[address] [facility] PT Coag (Bld) [Time] 13.1 s High 9.0 - 1 2.[address] [facility] MAGNESIUMon 05-12-2024 Magnesium [Mass/Vol] 2.0 mg/dL Normal 1.6-2.6 [facility] Comment on above: Result Comment: ORDE R COMMENTS: Higher values can be expected in females during menses. Performed By: #### L AB103, LAB15 ####Nurse Discharge Planner: DANIELLA PEREZ ([phone])[facility])[address] [place] [address] Magnesium [Mass/Vol]on 05-12 Interpretation and review of laboratory results Normal [facility] No Panel Informationon 05-12 Interpretation and review of laboratory results Abnormal [facility] Interpretation and review of laboratory results Abnormal [facility] Interpretation and review of laboratory results Abnormal [facility] Interpretation and review of laboratory results Abnormal [facility] Interpretation and review of laboratory results Abnormal [facility] PROTIME AND APTTon aPTT Coag (Bld) [Time] 43.6 s High 20.0-30.5 [facility] Comment on above: Performed By: #### L [id number] ####Nurse Discharge Planner: DANIELLA PEREZ ([phone])[facility] ([facility])[address] [place] [address] INR Coag (PPP) [Relative time] 1.2 {INR} High 0.9-1.1 [facility] Comment on above: Result Comment: Poli [...] prevent Myocardial Infarction Performed By: #### L [id number] ####Nurse Discharge Planner: DANIELLA PEREZ ([phone])[facility] ([facility])[address] [place] [address] PT Coag (PPP) [Time] 13.1 s High 9.0-12.0 [facility] Comment on above: Performed By: #### L [id number] ####Nurse Discharge Planner: DANIELLA PEREZ ([phone])[address] Progress Noteon 05-12-2024 Progress Note Cardiothoracic [...] to observe for. Will continue to monitor. [facility] Progress Note PHYSICAL THERAPY [facility] Treatment Note Name/MRN: Marcus Thrasher ([id number]) Date of : 1940 Age: 84 y.o. [...] 6-9 x5 reps due to fatigue IS: 9190-2330 mL x5 reps Acapella: x5 reps Plan [...] (gait & tp) Sosa Alfred, FRANKIE Arguello, [facility] Progress Note - Attestation signed by Lilian Cisse MD at 05/12/2024 1:56 PM I have personally performed a face to face diagnostic evaluation on this patient. In addition, I have reviewed the resident's/MEDICAL TECHNOLOGIST MICROBIOLOGY/RD SCIENTIST's care plan and agree with those findings [...] imaging are reviewed as detailed in the resident's/MEDICAL TECHNOLOGIST MICROBIOLOGY/RD SCIENTIST's note Department of Internal Medicine Division of Endocrinology, Diabetes, & Metabolism Endocrinology Note Patient Name: Farhana Thrasher : 1940 AGE: 84 y.o. Room/Bed: T1-116/T1-116 A Admission Date: 05/10/2024 Visit Date: 05/12/2024 Reason for Endocrine Consult: post op heart Provider/Team Requesting Consult: CTS PCP: KELSEY MOON MD Outpt Wedger Machine: No ASSESSMENT: DM2 with hyperglycemia and watermaster insulin Stress hyperglycemia CABGX3 HLD/CAD Obesity Body [...] 5 MG (more content not included)... Normal [facility] Progress Note - Attestation signed by Luz Hough DO at 05/12/2024 3:54 PM I have personally performed a [id number] diagnostic evaluation on this patient on date of service 05/12/24. History, labs, imaging studies, and electronic medical record have been reviewed by me. This note documented by the []housekeeping attendant [x]JULIO CESAR reflects my history, exam, and [...] PATIENT NAME: Farhana Thrasher DATE: 05/12/24 HPI: Mracus Thrasher is a 84 y.o. male referred [...] PAP at night. Weaned off of pressors, [place] removed. Pain tolerable, up walking with nursing. [...] Normal Post-o (more content not included)... Normal [facility] XR CHEST 1 VIEWon 05-12-2024 XR CHEST 1 VIEW Patient Name: FARHANA THRASHER : 1940 Exam Date/Time: 05/12/2024 08:24 Procedure: XR CHEST 1 VIEW Ordering Provider: HANDY KYLE Reason For Exam: Shortness of breath CHEST - PORTABLE: CLINICAL INDICATION: Shortness of breath TECHNIQUE: Portable AP COMPARISON: One day ago. IMPRESSION: FINDINGS/IMPRESSION: Limitations: Patient positioning/rotation Lines, tubes, and devices: Interval removal of [place]-Bárabra catheter with right IJ introducer sheath remaining. [...] Signed Date/Time: 05/12/2024 10:39 AM EDT Normal [facility] XR Chest Single viewon 05-12 [facility] Radiology Study observation (narrative) [facility] XR Chest Single viewOrdered By: Dickson Singh on 05-12-[address] [facility] Work Phone: 30on 05-11-2024 30 Problem: [...] Goal: Assess Nutritional Intake Outcome: Progressing Normal [facility] BASIC METABOLIC PANELon 04-23 Anion gap [Moles/Vol] 6 mmol/L Normal 3-13 [facility] Comment on above: Performed By: #### L AB103, LAB15 ####Nurse Discharge Planner: DANIELLA PEREZ ([phone])[facility])[address] [place] [address] Calcium [Mass/Vol] 8.1 mg/dL Low 8.8-10.0 [facility] Comment on above: Performed By: #### L AB103, LAB15 ####Nurse Discharge Planner: DANIELLA PEREZ ([phone])[facility])[address] [place] [address] Chloride [Moles/Vol] 113 mmol/L High 98-107 [facility] Comment on above: Performed By: #### L AB103, LAB15 ####Nurse Discharge Planner: DANIELLA PEREZ ([phone])[facility])[address] [place] [address] CO2 [Moles/Vol] 21 mmol/L Low 23-31 [facility] Comment on above: Performed By: #### L AB103, LAB15 ####Nurse Discharge Planner: DANIELLA PEREZ ([phone])[facility])[address] [place] [address] Creatinine [Mass/Vol] 0.80 mg/dL Normal 0.72-1.25 [facility] Comment on above: Performed By: #### L AB103, LAB15 ####Nurse Discharge Planner: DANIELLA PEREZ ([phone])[facility])[address] [place] [address] GLOMERULAR FILTRATION RATE ML/MIN/1.73 SQ M.PREDICTED 88.4 mL/min/1.73m*2 Normal >60.0 [facility] Comment on above: Result Comment: Calc ulation based on the Chronic Kidney Disease Epidemiology Collaboration (CKD-EPI) equation refit without adjustment for race Performed By: #### L AB103, LAB15 ####Nurse Discharge Planner: DANIELLA PEREZ ([phone])[facility] ([facility])[address] [place] [address] Glucose [Mass/Vol] 122 mg/dL High 82-115 [facility] Comment on above: Performed By: #### L AB103, LAB15 ####Nurse Discharge Planner: DANIELLA PEREZ ([phone])[facility])[address] [place] [address] Potassium [Moles/Vol] 4.4 mmol/L Normal 3.5-5.1 [facility] Comment on above: Result Comment: [facility] potassium values may be up to 0.5 mmol/L lower than serum values. Performed By: #### L AB103, LAB15 ####Nurse Discharge Planner: DANIELLA PEREZ ([phone])[facility] [place] [address] Sodium [Moles/Vol] 140 mmol/L Normal 136-145 [facility] Comment on above: Performed By: #### L AB103, LAB15 ####Nurse Discharge Planner: DANIELLA PEREZ ([phone])[facility])[address] [place] [address] Urea nitrogen [Mass/Vol] 14 mg/dL Normal 9-23 [facility] Comment on above: Performed By: #### L AB103, LAB15 ####Nurse Discharge Planner: DANIELLA PEREZ ([phone])[facility])[address] [place] [address] BLOOD GAS ARTERIALon 025 AMOUNT OF OXYGEN 4 Normal [facility] Comment on above: Order Comment: 30 mi n after vent changes Performed By: #### L AB76 ####Nurse Discharge Planner: DANIELLA PEREZ ([phone])[facility] ([facility])[address] [place] [address] Base excess Calc (Bld) [Moles/Vol] -2.8000 mmol/L Normal -3.0-3.0 [facility] Comment on above: Order Comment: 30 mi n after vent changes Performed By: #### L AB76 ####Nurse Discharge Planner: DANIELLA PEREZ ([phone])[facility])[address] [place] [address] CO2 [Moles/Vol] 22.7 mmol/L Low 23.0-27.0 [facility] Comment on above: Order Comment: 30 mi n after vent changes Performed By: #### L AB76 ####Nurse Discharge Planner: DANIELLA PEREZ ([phone])[facility])[address] [place] [address] HCO3 (Bld) [Moles/Vol] 21.6 mmol/L Normal 21.0-25.0 [facility] Comment on above: Order Comment: 30 mi n after vent changes Performed By: #### L AB76 ####Nurse Discharge Planner: DANIELLA PEREZ ([phone])[facility])[address] [place] [address] Hemoglobin (Bld) [Mass/Vol] 7.9 g/dL Normal Screen only [facility] Comment on above: Order Comment: 30 mi n after vent changes Performed By: #### L AB76 ####Nurse Discharge Planner: DANIELLA PEREZ ([phone])[facility] ([facility])[address] [place] [address] OXYGEN SATURATION (%) IN ARTERIAL BLOOD 98.5 % Normal 95.0-100.0 [facility] Comment on above: Order Comment: 30 mi n after vent changes Performed By: #### L AB76 ####Nurse Discharge Planner: DANIELLA PEREZ ([phone])[facility] ([facility])[address] [place] [address] PCO2 ARTERIAL 35.5 mm Hg Normal >35.0-<45.[address] [facility] Comment on above: Order Comment: 30 mi n after vent changes Performed By: #### L AB76 ####Nurse Discharge Planner: DANIELLA PEREZ ([phone])[facility] ([facility])[address] [place] [address] PH ARTERIAL 7.402 Normal 7.350-7.450 [facility] Comment on above: Order Comment: 30 mi n after vent changes Performed By: #### L AB76 ####Nurse Discharge Planner: DANIELLA PEREZ ([phone])[facility] ([facility])[address] [place] [address] PO2 ARTERIAL 157.0 mm Hg High 80.0-100.0 [facility] Comment on above: Order Comment: 30 mi n after vent changes Performed By: #### L AB76 ####Nurse Discharge Planner: DANIELLA PEREZ ([phone])[facility] ([facility])[address] [place] [address] SOURCE OF OXYGEN Nasal Cannula (LPM) Normal [facility] Comment on above: Order Comment: 30 mi n after vent changes Performed By: #### L AB76 ####Nurse Discharge Planner: DANIELLA PEREZ ([phone])[facility] ([facility])[address] [place] [address] Basic metabolic 1998 panelon 05-11-2024 Anion gap [Moles/Vol] 6 mmol/L 3 - 13 mmol/L [facility] Calcium [Mass/Vol] 8.1 mg/dL Low 8.8 - 10. 0 mg/dL [facility] Chloride [Moles/Vol] 113 mmol/L High 98 - 10 7 mmol/L [facility] CO2 [Moles/Vol] 21 mmol/L Low 23 - 31 mmol/L [facility] Creatinine [Mass/Vol] 0.8 mg/dL 0.72 - 1.25 mg/dL [facility] GFR/1.73 sq M.predicted (S/P/Bld) [Vol rate/Area] 88.4 mL/min - PINF [facility] Glucose [Mass/Vol] 122 mg/dL High 82 - 115 mg/dL [facility] Interpretation and review of laboratory results Abnormal [facility] Potassium [Moles/Vol] 4.4 mmol/L 3.5 - 5.1 mmol/L [facility] Sodium [Moles/Vol] 140 mmol/L 136 - 145 mmol/L [facility] Urea nitrogen [Mass/Vol] 14 mg/dL 9 - 23 mg/dL [facility] CALCIUM, IONIZEDon CALCIUM IONIZED 4.00 mg/dL Low 4.30-5.20 [facility] Comment on above: Order Comment: Obtai n PRN and check ionized Ca level if serum Ca level less than 8.0 Performed By: #### L AB54 ####Nurse Discharge Planner: DANIELLA PEREZ ([phone])[facility] ([facility])[address] [place] [address] PH, IONIZED CALCIUM 7.43 Normal 7.31-7.46 [facility] Comment on above: Order Comment: Obtai n PRN and check ionized Ca level if serum Ca level less than 8.0 Performed By: #### L AB54 ####Nurse Discharge Planner: DANIELLA PEREZ ([phone])[facility] ([facility])[address] [place] [address] Calcium.ionized [Moles/Vol]O rdered By: Carlos Curiel on 05-11-2024 Calcium.ionized (Bld) [Moles/Vol] 4 mg/dL Low 4.30 - 5.20 mg/dL [facility] Interpretation and review of laboratory results Abnormal 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)[address] [place] [address] Hemoglobin (Bld) [Mass/Vol] 7.7 g/dL Low 13.0-18.0 [facility] Comment on above: Order Comment: Recom mend 1 hour post transfusion Performed By: #### L [id number] ####Nurse Discharge Planner: DANIELLA PEREZ ([phone])[facility] ([facility])[address] [place] [address] Hemoglobin (Bld) [Mass/Vol]O rdered By: Charles Gordon on 05-11-2024 Hematocrit (Bld) [Volume fraction] 23.7 % Low 40.0 - 52.0 % [facility] Interpretation and review of laboratory results Abnormal [facility] - Chemistry and C hemistry - challengeon 05-11-2024 Glucose [Mass/Vol] 192 mg/dL High 70 - 100 mg/dL [facility] Glucose [Mass/Vol] 137 mg/dL High 70 - 100 mg/dL [facility] Glucose [Mass/Vol] 127 mg/dL High 70 - 100 mg/dL [facility] Glucose [Mass/Vol] 150 mg/dL High 70 - 100 mg/dL [facility] [facility] Glucose [Mass/Vol] 128 mg/dL High 70 - 100 mg/dL [facility] Glucose [Mass/Vol] 148 mg/dL High 70 - 100 mg/dL [facility] Glucose [Mass/Vol] 137 mg/dL High 70 - 100 mg/dL [facility] Glucose [Mass/Vol] 96 mg/dL 70 - 100 mg/dL [facility] Magnesium [Mass/Vol] 2.1 mg/dL 1.6 - 2 .6 mg/dL [facility] Glucose [Mass/Vol] 122 mg/dL High 70 - 100 mg/dL [facility] Glucose [Mass/Vol] 132 mg/dL High 70 - 100 mg/dL [facility] Glucose [Mass/Vol] 149 mg/dL High 70 - 100 mg/dL [facility] Glucose [Mass/Vol] 151 mg/dL High 70 - 100 mg/dL [facility] Glucose [Mass/Vol] 148 mg/dL High 70 - 100 mg/dL [facility] Glucose [Mass/Vol] 183 mg/dL High 70 - 100 mg/dL [facility] Laboratory - Chemistry and C hemistry - challengeOrdered By: Jose Seth on 05-11-2024 Base excess Calc (Bld) [Moles/Vol] -2.8000 mmol/L -3.0 - 3.0 mmol/L [facility] CO2 (Bld) [Partial pressure] 35.5 mm[Hg] - PINF [facility] CO2 [Moles/Vol] 22.7 mmol/L Low 23.0 - 27.0 mmol/L [facility] HCO3 (Bld) [Moles/Vol] 21.6 mmol/L 21.0 - 25.0 mmol/L [facility] Oxygen (Bld) [Partial pressure] 157 mm[Hg] High [facility] pH (Bld) 7.402 [pH] 7.350 - 7.[address] [facility] Laboratory - Coagulationon 0 05-11-2024 aPTT Coag (PPP) [Time] 36.9 s High 20.0 - 30.[address] [facility] INR Coag (PPP) [Relative time] 1.1 {INR} 0.9 - 1.[address] [facility] PT Coag (Bld) [Time] 12.7 s High 9.0 - 1 2.[address] [facility] Laboratory - Hematology and Cell countsOrdered By: Jose Seth on 05-11-2024 Hemoglobin (Bld) [Mass/Vol] 7.9 g/dL Screen only [facility] Laboratory - Hematology and Cell countsOrdered By: Charles Gordon on 05-11-2024 Hemoglobin (Bld) [Mass/Vol] 7.7 g/dL Low 13.0 - 18.0 g/dL [facility] MAGNESIUMon 05-11-2024 Magnesium [Mass/Vol] 2.1 mg/dL Normal 1.6-2.6 [facility] Comment on above: Result Comment: JEAN CARLOS Nuñez COMMENTS: Higher values can be expected in females during menses. Performed By: #### L [id number], [id number] ####Nurse Discharge Planner: DANIELLA PEREZ ([phone])[facility] ([address] Magnesium [Mass/Vol]on 05-11 Interpretation and review of laboratory results Normal [facility] No Panel Informationon 05-11 Interpretation and review of laboratory results Abnormal [facility] Interpretation and review of laboratory results Abnormal [facility] Interpretation and review of laboratory results Abnormal [facility] Interpretation and review of laboratory results Abnormal [facility] P [place] [address] [facility] MA Interval [address] [facility] QRS [place] -[address] [facility] QRSD Interval 130 ms [facility] [address] [facility] QTC Interval [address] [facility] T Wave [place] [address] [facility] CV EPIPHANY [facility] Interpretation and review of laboratory results Abnormal [facility] Interpretation and review of laboratory results Abnormal [facility] Interpretation and review of laboratory results Normal [facility] Interpretation and review of laboratory results Abnormal [facility] Interpretation and review of laboratory results Abnormal [facility] Interpretation and review of laboratory results Abnormal [facility] Interpretation and review of laboratory results Abnormal [facility] Interpretation and review of laboratory results Abnormal [facility] Interpretation and review of laboratory results Abnormal [facility] Interpretation and review of laboratory results Abnormal [facility] No Panel InformationOrdered By: Lalit Fabian on 05-11-2024 P Whatley 13 degrees [facility] Work Phone: MA Interval 194 ms [facility] Work Phone: QRS [place] -61 degrees [facility] Work Phone: QRSD Interval 163 ms [facility] Work Phone: QT Interval 477 ms [facility] Work Phone: QTC Interval 511 ms [facility] Work Phone: T Wave [place] 68 degrees [facility] Work Phone: [facility] Work Phone: No Panel InformationOrdered By: Jose Seth on 05-11-2024 Amount Of Oxygen 4 [facility] Interpretation and review of laboratory results Abnormal [facility] Source Of Oxygen Nasal Cannula (LPM) [facility] PROTIME AND APTTon aPTT Coag (Bld) [Time] 36.9 s High 20.0-30.5 [facility] Comment on above: Performed By: #### L [id number] ####Nurse Discharge Planner: DANIELLA PEREZ ([phone])[facility])[address] [place] [address] INR Coag (PPP) [Relative time] 1.1 {INR} Normal 0.9-1.1 [facility] Comment on above: Performed By: #### L [id number] ####Nurse Discharge Planner: DANIELLA PEREZ ([phone])[facility])[address] [place] [address] PT Coag (PPP) [Time] 12.7 s High 9.0-12.0 [facility] Comment on above: Performed By: #### L [id number] ####Nurse Discharge Planner: DANIELLA [phone])[facility] ([facility] [place] [address] Progress Noteon 05-11-2024 Progress Note - Attestation signed by Lilian Cisse MD at 05/11/2024 12:36 PM I have personally performed a face to face diagnostic evaluation on this patient. In addition, I have reviewed the resident's/MEDICAL TECHNOLOGIST MICROBIOLOGY/RD SCIENTIST's care plan and agree with those findings [...] imaging are reviewed as detailed in the resident's/MEDICAL TECHNOLOGIST MICROBIOLOGY/RD SCIENTIST's note Department of Internal Medicine Division of Endocrinology, Diabetes, & Metabolism Endocrinology Note Patient Name: Farhana Thrasher : 1940 AGE: 84 y.o. Room/Bed: T1-116/T1-116 A Admission Date: 05/10/2024 Visit Date: 05/11/2024 Reason for Endocrine Consult: post op heart Provider/Team Requesting Consult: CTS PCP: KELSEY MOON MD Outpt Wedger Machine: No ASSESSMENT: DM2 with hyperglycemia and retirement insulin Stress hyperglycemia CABGX3 HLD/CAD Obesity Body [...] pale. Comments: (more content not included)... Normal [facility] Progress Note - Attestation signed by Luz Hough DO at 05/11/2024 5:59 PM I have personally performed a [id number] diagnostic evaluation on this patient on date of service 05/11/24. History, labs, imaging studies, and electronic medical record have been reviewed by me. This note documented by the []housekeeping attendant [x]JULIO CESAR reflects my history, exam, and [...] or diaphoretic. Neck: Comments: [place] and [place]. Cardiovascular: Rate and Rhythm: Normal rate and [...] deficit p (more content not included)... Normal [facility] TYLOR CARDIAC PANELon 2024 HEPTEM A10 51 mm Normal 51-72 [facility] Comment on above: Performed By: #### L [id number] ####Nurse Discharge Planner: DANIELLA PEREZ ([phone])[facility] BLOOD BANK ([facility])[address] [place] [address] HEPTEM A20 57 mm Normal 51-72 [facility] Comment on above: Performed By: #### L [id number] ####Nurse Discharge Planner: DANIELLA PEREZ ([phone])[facility] BLOOD [facility] ([facility])[address] [place] [address] HEPTEM ALPHA 68 DEGREES Low 70-81 [facility] Comment on above: Performed By: #### L [id number] ####Nurse Discharge Planner: DANIELLA PEREZ ([phone])[facility]OD [facility] ([facility])[address] [place] [address] HEPTEM CLOT FORMATION TIME 114 s High 45-110 [facility] Comment on above: Performed By: #### L [id number] ####Nurse Discharge Planner: DANIELLA PEREZ ([phone])[facility]OD [facility] ([facility])[address] [place] [address] [place] HEPTEM CLOTTING TIME 170 s Normal 122-208 [facility] Comment on above: Performed By: #### L [id number] ####Nurse Discharge Planner: DANIELLA PEREZ ([phone])[facility] ([facility])[address] [place] [address] HEPTEM MAXIMUM CLOT FIRMNESS 57 mm Normal 51-72 [facility] Comment on above: Performed By: #### L [id number] ####Nurse Discharge Planner: DANIELLA PEREZ ([phone])[facility]LOOD [facility] ([facility])[address] [place] [address] [place] INTEM A10 50 mm Low 51-72 [facility] Comment on above: Performed By: #### L [id number] ####Nurse Discharge Planner: DANIELLA PEREZ ([phone])[facility]LOOD [facility] ([facility])[address] [place] [address] [place] INTEM A20 56 mm Normal 51-72 [facility] Comment on above: Performed By: #### L [id number] ####Nurse Discharge Planner: DANIELLA PEREZ ([phone])[facility] BLOOD [facility] ([facility])[address] [place] [address] [place] INTEM ALPHA 70 DEGREES Normal 70-81 [facility] Comment on above: Performed By: #### L [id number] ####Nurse Discharge Planner: DANIELLA PEREZ ([phone])[facility]OD [facility] ([facility])[address] [place] [address] [place] INTEM CLOT FORMATION TIME 103 s Normal 45-110 [facility] Comment on above: Performed By: #### L [id number] ####Nurse Discharge Planner: DANIELLA PEREZ ([phone])[facility] BLOOD [facility] ([facility])[address] [place] [address] INTEM CLOTTING TIME 198 s Normal 122-208 [facility] Comment on above: Performed By: #### L [id number] ####Nurse Discharge Planner: DANIELLA PEREZ ([phone])[facility] BLOOD [facility] ([facility])[address] [place] [address] INTEM MAXIMUM CLOT FIRMNESS 57 mm Normal 51-72 [facility] Comment on above: Performed By: #### L [id number] ####Nurse Discharge Planner: DANIELLA PEREZ ([phone])[facility] BLOOD [facility] ([facility])[address] [place] [address] Thromboelastography after ad dtion of heparinase panel [...] [Time] 57 mm 51 - [address] [facility] Interpretation and review of laboratory results Abnormal [facility] Maximum clot firmness after addition of heparinase TEG (Bld) [Length] 57 mm 51 - 72 mm [facility] Vital signsOrdered By: Richi Fabian on 05-11-2024 Heart rate 71 /min bpm [facility] [employer] Work Phone: Vital signson 05-11-2024 Heart rate 72 /min bpm [facility] XR CHEST 1 VIEWon 05-11-2024 XR CHEST 1 VIEW [facility] 1940 [id number] Exam Date/Time: 05/11/2024 05:30 Procedure: XR CHEST 1 VIEW Ordering Provider: HANDY KYLE Reason For Exam: Shortness of breath CHEST - PORTABLE: CLINICAL INDICATION: Respiratory distress for follow up TECHNIQUE: Portable AP COMPARISON: One day ago FINDINGS: Tubes, lines and devices: Right [place] catheter with its tip in the region [...] Signed Date/Time: 05/11/2024 8:19 AM EDT Normal [facility] XR Chest Single viewon 05-11 [facility] Radiology Study observation (narrative) [facility] XR Chest Single viewOrdered By: Barron Long on 05-11-2024 [facility] [employer] Work Phone: BASIC METABOLIC PANELon 04-22 Anion gap [Moles/Vol] 9 mmol/L Normal 3-13 [facility] Comment on above: Performed By: #### L [id number] ####Nurse Discharge Planner: DANIELLA PEREZ ([phone])[facility])[address] [place] [address] Calcium [Mass/Vol] 8.2 mg/dL Low 8.8-10.0 [facility] Comment on above: Performed By: #### L [id number] ####Nurse Discharge Planner: DANIELLA PEREZ ([phone])[facility])[address] [place] [address] Chloride [Moles/Vol] 115 mmol/L High 98-107 [facility] Comment on above: Performed By: #### L [id number] ####Nurse Discharge Planner: DANIELLA PEREZ ([phone])[facility] ([facility])[address] [place] [address] CO2 [Moles/Vol] 19 mmol/L Low 23-31 [facility] Comment on above: Performed By: #### L [id number] ####Nurse Discharge Planner: DANIELLA PEREZ ([phone])[facility] ([facility])[address] [place] [address] Creatinine [Mass/Vol] 0.84 mg/dL Normal 0.72-1.25 [facility] Comment on above: Performed By: #### L [id number] ####Nurse Discharge Planner: DANIELLA PEREZ ([phone])[facility] ([facility])[address] [place] [address] GLOMERULAR FILTRATION RATE ML/MIN/1.73 SQ M.PREDICTED 87.1 mL/min/1.73m*2 Normal >60.0 [facility] Comment on above: Result Comment: Calc ulation based on the Chronic Kidney Disease Epidemiology Collaboration (CKD-EPI) equation refit without adjustment for race Performed By: #### L [id number] ####Nurse Discharge Planner: DANIELLA PEREZ ([phone])[facility] ([facility])[address] [place] [address] [place] Glucose [Mass/Vol] 146 mg/dL High 82-115 [facility] Comment on above: Performed By: #### L [id number] ####Nurse Discharge Planner: DANIELLA PEREZ ([phone])[facility] ([facility])[address] Potassium [Moles/Vol] 4.6 mmol/L Normal 3.5-5.1 [facility] Comment on above: Result Comment: [facility] potassium values may be up to 0.5 mmol/L lower than serum values. Performed By: #### L [id number] ####Nurse Discharge Planner: DANIELLA PEREZ ([phone])[facility] ([facility])[address] [place] [address] Sodium [Moles/Vol] 143 mmol/L Normal 136-145 [facility] Comment on above: Performed By: #### L [id number] ####Nurse Discharge Planner: DANIELLA PEREZ ([phone])[facility] ([facility])[address] [place] [address] Urea nitrogen [Mass/Vol] 16 mg/dL Normal 9-23 [facility] Comment on above: Performed By: #### L [id number] ####Nurse Discharge Planner: DANIELLA PEREZ ([phone])[facility] ([facility])[address] [place] [address] Anion gap [Moles/Vol] 6 mmol/L Normal 3-13 [facility] Comment on above: Performed By: #### L [id number], [id number], LAB15 ####Nurse Discharge Planner: DANIELLA PEREZ ([phone])[facility] ([facility])[address] [place] [address] Calcium [Mass/Vol] 9.8 mg/dL Normal 8.8-10.0 [facility] Comment on above: Performed By: #### L [id number], [id number], [id number] ####Nurse Discharge Planner: DANIELLA PEREZ ([phone])[facility] ([facility])[address] [place] [address] [place] Chloride [Moles/Vol] 111 mmol/L High 98-107 [facility] Comment on above: Performed By: #### L [id number], [id number], LAB15 ####Nurse Discharge Planner: DANIELLA PEREZ ([phone])[facility] ([facility])[address] [place] [address] [place] CO2 [Moles/Vol] 22 mmol/L Low 23-31 [facility] Comment on above: Performed By: #### L [id number], [id number], LAB15 ####Nurse Discharge Planner: DANIELLA PEREZ ([phone])[facility])[address] [place] [address] Creatinine [Mass/Vol] 0.84 mg/dL Normal 0.72-1.25 [facility] Comment on above: Performed By: #### Verito [id number], [id number], LAB15 ####Nurse Discharge Planner: DANIELLA PEREZ ([phone])[facility] ([facility])[address] [place] [address] GLOMERULAR FILTRATION RATE ML/MIN/1.73 SQ M.PREDICTED 87.1 mL/min/1.73m*2 Normal >60.0 [facility] Comment on above: Result Comment: Calc ulation based on the Chronic Kidney Disease Epidemiology Collaboration (CKD-EPI) equation refit without adjustment for race Performed By: #### Verito ABAnnamaria, [id number], [id number] ####Nurse Discharge Planner: DANIELLA PEREZ ([phone])[facility] ([facility])[address] [place] [address] Glucose [Mass/Vol] 144 mg/dL High 82-115 [facility] Comment on above: Performed By: #### L AB113, [id number], LAB15 ####Nurse Discharge Planner: DANIELLA PEREZ ([phone])[facility])[address] [place] [address] Potassium [Moles/Vol] 3.6 mmol/L Normal 3.5-5.1 [facility] Comment on above: Result Comment: [facility] potassium values may be up to 0.5 mmol/L lower than serum values. Performed By: #### L AB113, [id number], LAB15 ####Nurse Discharge Planner: DANIELLA PEREZ ([phone])[facility])[address] [place] [address] Sodium [Moles/Vol] 139 mmol/L Normal 136-145 [facility] Comment on above: Performed By: #### L AB113, [id number], LAB15 ####Nurse Discharge Planner: DANIELLA PEREZ ([phone])[facility] ([facility])[address] [place] [address] Urea nitrogen [Mass/Vol] 17 mg/dL Normal 9-23 [facility] Comment on above: Performed By: #### L AB113, [id number], LAB15 ####Nurse Discharge Planner: DANIELLA PEREZ ([phone])[facility] ([facility])[address] [place] [address] BLOOD GAS ARTERIALon 025 AMOUNT OF OXYGEN 2lt Normal [facility] Comment on above: Order Comment: 30 mi n after vent changes Performed By: #### L [id number] ####Nurse Discharge Planner: DANIELLA PEREZ ([phone])[facility] ([facility])[address] [place] [address] Base excess Calc (Bld) [Moles/Vol] -2.5000 mmol/L Normal -3.0-3.0 [facility] Comment on above: Order Comment: 30 mi n after vent changes Performed By: #### L [id number] ####Nurse Discharge Planner: DANIELLA PEREZ ([phone])[facility] ([facility])[address] [place] [address] CO2 [Moles/Vol] 23.1 mmol/L Normal 23.0-27.0 [facility] Comment on above: Order Comment: 30 mi n after vent changes Performed By: #### L AB76 ####Nurse Discharge Planner: DANIELLA PEREZ ([phone])[facility] ([facility])[address] [place] [address] HCO3 (Bld) [Moles/Vol] 22.0 mmol/L Normal 21.0-25.0 [facility] Comment on above: Order Comment: 30 mi n after vent changes Performed By: #### L [id number] ####Nurse Discharge Planner: DANIELLA PEREZ ([phone])[facility] ([facility])[address] [place] [address] Hemoglobin (Bld) [Mass/Vol] 8.9 g/dL Normal Screen only [facility] Comment on above: Order Comment: 30 mi n after vent changes Performed By: #### L [id number] ####Nurse Discharge Planner: DANIELLA PEREZ ([phone])[facility] ([facility])[address] [place] [address] OXYGEN SATURATION (%) IN ARTERIAL BLOOD 98.2 % Normal 95.0-100.[address] [facility] Comment on above: Order Comment: 30 mi n after vent changes Performed By: #### L [id number] ####Nurse Discharge Planner: DANIELLA PEREZ ([phone])[facility] ([facility])[address] [place] [address] PCO2 ARTERIAL 36.3 mm Hg Normal >35.0-<45.0 [facility] Comment on above: Order Comment: 30 mi n after vent changes Performed By: #### L [id number] ####Nurse Discharge Planner: DANIELLA PEREZ ([phone])[facility] ([facility])[address] [place] [address] PH ARTERIAL 7.400 Normal 7.350-7.[address] [facility] Comment on above: Order Comment: 30 mi n after vent changes Performed By: #### L [id number] ####Nurse Discharge Planner: DANIELLA PEREZ ([phone])[facility] ([facility])[address] [place] [address] PO2 ARTERIAL 123.3 mm Hg High 80.0-100.0 [facility] Comment on above: Order Comment: 30 mi n after vent changes Performed By: #### L [id number] ####Nurse Discharge Planner: DANIELLA PEREZ ([phone])[facility] ([facility])[address] [place] [address] SOURCE OF OXYGEN Nasal Cannula (LPM) Normal [facility] Comment on above: Order Comment: 30 mi n after vent changes Performed By: #### L [id number] ####Nurse Discharge Planner: DANIELLA PEREZ ([phone])[facility] ([facility])[address] [place] [address] AMOUNT OF OXYGEN 2 Normal [facility] Comment on above: Performed By: #### L [id number] ####Nurse Discharge Planner: DANIELLA PEREZ ([phone])[facility] ([facility])[address] [place] [address] Base excess Calc (Bld) [Moles/Vol] -3.0000 mmol/L Normal -3.0-3.0 [facility] Comment on above: Performed By: #### L [id number] ####Nurse Discharge Planner: DANIELLA PEREZ ([phone])[facility] ([facility])[address] [place] [address] CO2 [Moles/Vol] 22.9 mmol/L Low 23.0-27.0 [facility] Comment on above: Performed By: #### L [id number] ####Nurse Discharge Planner: DANIELLA PEREZ ([phone])[facility] ([facility])[address] [place] [address] HCO3 (Bld) [Moles/Vol] 21.7 mmol/L Normal 21.0-25.0 [facility] Comment on above: Performed By: #### L [id number] ####Nurse Discharge Planner: DANIELLA PEREZ ([phone])[facility] ([facility])[address] [place] [address] Hemoglobin (Bld) [Mass/Vol] 7.3 g/dL Normal Screen only [facility] Comment on above: Performed By: #### L AB76 ####Nurse Discharge Planner: DANIELLA PEREZ ([phone])[facility] ([facility])[address] [place] [address] OXYGEN SATURATION (%) IN ARTERIAL BLOOD 97.1 % Normal 95.0-100.0 [facility] Comment on above: Performed By: #### L AB76 ####Nurse Discharge Planner: DANIELLA PEREZ ([phone])[facility] ([facility])[address] [place] [address] PCO2 ARTERIAL 37.3 mm Hg Normal >35.0-<45.0 [facility] Comment on above: Performed By: #### L AB76 ####Nurse Discharge Planner: DANIELLA PEREZ ([phone])[facility] ([facility])[address] [place] [address] PH ARTERIAL 7.383 Normal 7.350-7.[address] [facility] Comment on above: Performed By: #### L AB76 ####Nurse Discharge Planner: DANIELLA PEREZ ([phone])[facility] ([facility])[address] [place] [address] PO2 ARTERIAL 117.0 mm Hg High 80.0-100.0 [facility] Comment on above: Performed By: #### L AB76 ####Nurse Discharge Planner: DANILELA PEREZ ([phone])[facility] ([facility])[address] [place] [address] SOURCE OF OXYGEN Nasal Cannula (LPM) Normal [facility] Comment on above: Performed By: #### L AB76 ####Nurse Discharge Planner: DANIELLA PEREZ ([phone])[facility])[address] [place] [address] AMOUNT OF OXYGEN 50 Normal [facility] Comment on above: Performed By: #### L AB76 ####Nurse Discharge Planner: DANIELLA PEREZ ([phone])[facility] ([facility])[address] [place] [address] Base excess Calc (Bld) [Moles/Vol] -6.1000 mmol/L Low -3.0-3.[address] [facility] Comment on above: Performed By: #### L AB76 ####Nurse Discharge Planner: DANIELLA PEREZ ([phone])[facility] ([facility])[address] [place] [address] [place] CO2 [Moles/Vol] 20.8 mmol/L Low 23.0-27.0 [facility] Comment on above: Performed By: #### L AB76 ####Nurse Discharge Planner: DANIELLA PEREZ ([phone])[facility] ([facility])[address] [place] [address] HCO3 (Bld) [Moles/Vol] 19.6 mmol/L Low 21.0-25.0 [facility] Comment on above: Performed By: #### L AB76 ####Nurse Discharge Planner: DANIELLA [phone])[facility] ([facility])[address] [place] [address] Hemoglobin (Bld) [Mass/Vol] 8.5 g/dL Normal Screen only [facility] Comment on above: Performed By: #### L AB76 ####Nurse Discharge Planner: DANIELLA PEREZ ([phone])[facility] ([facility])[address] [place] [address] OXYGEN SATURATION (%) IN ARTERIAL BLOOD 98.5 % Normal 95.0-100.[address] [facility] Comment on above: Performed By: #### L AB76 ####Nurse Discharge Planner: DANIELLA PEREZ ([phone])[facility] ([facility])[address] [place] [address] PCO2 ARTERIAL 39.5 mm Hg Normal >35.0-<45.0 [facility] Comment on above: Performed By: #### L AB76 ####Nurse Discharge Planner: DANIELLA PEREZ ([phone])[facility] ([facility])[address] [place] [address] PH ARTERIAL 7.313 Low 7.350-7.[address] [facility] Comment on above: Performed By: #### L AB76 ####Nurse Discharge Planner: DANIELLA PEREZ ([phone])[facility] ([facility])[address] [place] [address] PO2 ARTERIAL 177.8 mm Hg High 80.0-100.0 [facility] Comment on above: Performed By: #### L AB76 ####Nurse Discharge Planner: DANIELLA PEREZ ([phone])[facility] ([facility])[address] [place] [address] SOURCE OF OXYGEN Ventilator Normal [facility] Comment on above: Performed By: #### L AB76 ####Nurse Discharge Planner: DANIELLA PEREZ ([phone])[facility])[address] [place] [address] AMOUNT OF OXYGEN 100 Normal [facility] Comment on above: Performed By: #### L AB76 ####Nurse Discharge Planner: DANIELLA PEREZ ([phone])[facility] ([facility])[address] [place] [address] Base excess Calc (Bld) [Moles/Vol] -2.2000 mmol/L Normal -3.0-3.0 [facility] Comment on above: Performed By: #### L AB76 ####Nurse Discharge Planner: DANIELLA PEREZ ([phone])[facility] ([facility])[address] [place] [address] CO2 [Moles/Vol] 24.6 mmol/L Normal 23.0-27.0 [facility] Comment on above: Performed By: #### L AB76 ####Nurse Discharge Planner: DANIELLA PEREZ ([phone])[facility] ([facility])[address] [place] [address] HCO3 (Bld) [Moles/Vol] 23.3 mmol/L Normal 21.0-25.0 [facility] Comment on above: Performed By: #### L AB76 ####Nurse Discharge Planner: DANIELLA PEREZ ([phone])[facility] ([facility])[address] [place] [address] Hemoglobin (Bld) [Mass/Vol] 10.2 g/dL Normal Screen only [facility] Comment on above: Performed By: #### L AB76 ####Nurse Discharge Planner: DANIELLA PEREZ ([phone])[facility] ([facility])[address] [place] [address] OXYGEN SATURATION (%) IN ARTERIAL BLOOD 98.8 % Normal 95.0-100.0 [facility] Comment on above: Performed By: #### L AB76 ####Nurse Discharge Planner: DANIELLA PEREZ ([phone])[facility] ([facility])[address] [place] [address] PCO2 ARTERIAL 43.0 mm Hg Normal >35.0-<45.0 [facility] Comment on above: Performed By: #### L AB76 ####Nurse Discharge Planner: DANIELLA PEREZ ([phone])[facility] ([facility])[address] [place] [address] PH ARTERIAL 7.352 Normal 7.350-7.[address] [facility] Comment on above: Performed By: #### L AB76 ####Nurse Discharge Planner: DANIELLA PEREZ ([phone])[facility] ([facility])[address] [place] [address] PO2 ARTERIAL 387.1 mm Hg High 80.0-100.0 [facility] h System [facility] Comment on above: Performed By: #### L AB76 ####Nurse Discharge Planner: DANIELLA PEREZ ([phone])[facility] ([facility])[address] [place] [address] SOURCE OF OXYGEN Ventilator Normal [facility]th System [facility] Comment on above: Performed By: #### L AB76 ####Nurse Discharge Planner: DANIELLA PEREZ ([phone])[facility] ([facility])[address] [place] [address] Basic metabolic 1997 panelOr dered By: Ann Lopez on 05-10-2024 Anion gap [Moles/Vol] 9 mmol/L 3 - 13 mmol/L [facility] Calcium [Mass/Vol] 8.2 mg/dL Low 8.8 - 10. 0 mg/dL [facility] Chloride [Moles/Vol] 115 mmol/L High 98 - 10 7 mmol/L [facility] CO2 [Moles/Vol] 19 mmol/L Low 23 - 31 mmol/L [facility] Creatinine [Mass/Vol] 0.84 mg/dL 0.72 - 1.25 mg/dL [facility] GFR/1.73 sq M.predicted (S/P/Bld) [Vol rate/Area] 87.1 mL/min - PINF [facility] Glucose [Mass/Vol] 146 mg/dL High 82 - 115 mg/dL [facility] Interpretation and review of laboratory results Abnormal [facility] Potassium [Moles/Vol] 4.6 mmol/L 3.5 - 5.1 mmol/L [facility] Sodium [Moles/Vol] 143 mmol/L 136 - 145 mmol/L [facility] Urea nitrogen [Mass/Vol] 16 mg/dL 9 - 23 mg/dL [facility] Basic metabolic 1998 panelon 05-10-2024 Anion gap [Moles/Vol] 6 mmol/L 3 - 13 mmol/L [facility] Calcium [Mass/Vol] 9.8 mg/dL 8.8 - 10. 0 mg/dL [facility] Chloride [Moles/Vol] 111 mmol/L High 98 - 10 7 mmol/L [facility] CO2 [Moles/Vol] 22 mmol/L Low 23 - 31 mmol/L [facility] Creatinine [Mass/Vol] 0.84 mg/dL 0.72 - 1.25 mg/dL [facility] GFR/1.73 sq M.predicted (S/P/Bld) [Vol rate/Area] 87.1 mL/min - PINF [facility] Glucose [Mass/Vol] 144 mg/dL High 82 - 115 mg/dL [facility] Potassium [Moles/Vol] 3.6 mmol/L 3.5 - 5.1 mmol/L [facility] Sodium [Moles/Vol] 139 mmol/L 136 - 145 mmol/L [facility] Urea nitrogen [Mass/Vol] 17 mg/dL 9 - 23 mg/dL [facility] CALCIUM, IONIZEDon 5 CALCIUM IONIZED 4.40 mg/dL Normal 4.30-5.20 [facility] Comment on above: Performed By: #### L AB54 ####Nurse Discharge Planner: DANIELLA PEREZ ([phone])[address] PH, IONIZED CALCIUM 7.39 Normal 7.31-7.46 [facility] Comment on above: Performed By: #### L AB54 ####Nurse Discharge Planner: DANIELLA PEREZ ([phone])[facility])[address] [place] [address] CALCIUM IONIZED 4.40 mg/dL Normal 4.30-5.20 [facility] Comment on above: Performed By: #### L AB54 ####Nurse Discharge Planner: DANIELLA PEREZ ([phone])[address] PH, IONIZED CALCIUM 7.33 Normal 7.31-7.46 [facility] Comment on above: Performed By: #### L AB54 ####Nurse Discharge Planner: DANIELLA [phone])[facility] ([facility])[address] [place] [address] CALCIUM IONIZED 5.40 mg/dL High 4.30-5.20 [facility] Comment on above: Performed By: #### L AB54 #### Nurse Discharge Planner: DANIELLA PEREZ ([phone]) [facility]) [address] [place] [address] PH, IONIZED CALCIUM 7.37 Normal 7.31-7.46 [facility] Comment on above: Performed By: #### L AB54 #### Nurse Discharge Planner: DANIELLA PEREZ ([phone]) [facility]) [address] [place] [address] CBC (HEMOGRAM)on 05-10-2024 Erythrocyte distribution width (RBC) [Ratio] 14.3 % Normal 11.5-15.0 [facility] Comment on above: Performed By: #### L [id number] ####Nurse Discharge Planner: DANIELLA PEREZ ([phone])[facility] ([facility])[address] [place] [address] Hematocrit (Bld) [Volume fraction] 26.0 % Low 40.0-52.0 [facility] Comment on above: Performed By: #### L [id number] ####Nurse Discharge Planner: DANIELLA PEREZ ([phone])[facility])[address] [place] [address] Hemoglobin (Bld) [Mass/Vol] 8.6 g/dL Low 13.0-18.0 [facility] Comment on above: Performed By: #### L [id number] ####Nurse Discharge Planner: DANIELLA PEREZ ([phone])[facility])[address] [place] [address] MCH (RBC) [Entitic mass] 27.8 pg Normal 26.0-34.0 [facility] Comment on above: Performed By: #### L [id number] ####Nurse Discharge Planner: DANIELLA PEREZ ([phone])[facility])[address] [place] [address] MCHC 33.1 % Normal 30.5-36.0 [facility] Comment on above: Performed By: #### L [id number] ####Nurse Discharge Planner: DANIELLA PEREZ ([phone])[facility] ([facility])[address] [place] [address] MCV (RBC) [Entitic vol] 84.1 fL Normal 77.0-99.0 S [facility] Comment on above: Performed By: #### L [id number] ####Nurse Discharge Planner: DANIELLA PEREZ ([phone])[facility] ([facility])[address] [place] [address] Platelet mean volume (Bld) [Entitic vol] 9.6 fL Normal 9.0-12.7 [facility] Comment on above: Performed By: #### L [id number] ####Nurse Discharge Planner: DANIELLA PEREZ ([phone])[facility] ([facility])[address] [place] [address] Platelets (Bld) [#/Vol] 157 10*3/uL Normal 140-440 [facility] Comment on above: Performed By: #### L [id number] ####Nurse Discharge Planner: DANIELLA PEREZ ([phone])[facility] ([facility])[address] [place] [address] RBC (Bld) [#/Vol] 3.09 10*6/uL Low 4.40-5.90 [facility] Comment on above: Performed By: #### L [id number] ####Nurse Discharge Planner: DANIELLA PEREZ ([phone])[facility] ([facility])[address] [place] [address] WBC (Bld) [#/Vol] 15.4 10*3/uL High 3.6-10.7 [facility] Comment on above: Performed By: #### L [id number] ####Nurse Discharge Planner: DANIELLA PEREZ ([phone])[facility] ([facility])[address] [place] [address] Erythrocyte distribution width (RBC) [Ratio] 14.0 % Normal 11.5-15.0 [facility] Comment on above: Performed By: #### L [id number] ####Nurse Discharge Planner: DANIELLA PEREZ ([phone])[facility])[address] [place] [address] Hematocrit (Bld) [Volume fraction] 24.9 % Low 40.0-52.0 [facility] Comment on above: Performed By: #### L [id number] ####Nurse Discharge Planner: DANIELLA PEREZ ([phone])[facility])[address] [place] [address] Hemoglobin (Bld) [Mass/Vol] 7.9 g/dL Low 13.0-18.0 [facility] Comment on above: Performed By: #### L [id number] ####Nurse Discharge Planner: DANIELLA PEREZ ([phone])[address] MCH (RBC) [Entitic mass] 27.4 pg Normal 26.0-34.0 [facility] Comment on above: Performed By: #### L [id number] ####Nurse Discharge Planner: DANIELLA PEREZ ([phone])[address] MCHC 31.7 % Normal 30.5-36.0 [facility] Comment on above: Performed By: #### L [id number] ####Nurse Discharge Planner: DANIELLA PEREZ ([phone])[facility])[address] [place] [address] MCV (RBC) [Entitic vol] 86.5 fL Normal 77.0-99.0 [facility] Comment on above: Performed By: #### L [id number] ####Nurse Discharge Planner: DANIELLA PEREZ ([phone])[facility])[address] [place] [address] Platelet mean volume (Bld) [Entitic vol] 9.3 fL Normal 9.0-12.7 [facility] Comment on above: Performed By: #### L [id number] ####Nurse Discharge Planner: DANIELLA PEREZ ([phone])[facility])[address] [place] [address] Platelets (Bld) [#/Vol] 124 10*3/uL Low 140-440 [facility] Comment on above: Performed By: #### L [id number] ####Nurse Discharge Planner: DANIELLA PEREZ ([phone])[facility])[address] [place] [address] RBC (Bld) [#/Vol] 2.88 10*6/uL Low 4.40-5.90 [facility] Comment on above: Performed By: #### L [id number] ####Nurse Discharge Planner: DANIELLA PEREZ ([phone])[facility] ([facility])[address] [place] [address] WBC (Bld) [#/Vol] 11.3 10*3/uL High 3.6-10.7 [facility] Comment on above: Performed By: #### L [id number] ####Nurse Discharge Planner: DANIELLA PEREZ ([phone])[facility])[address] [place] [address] CBC W Auto Differential pane l (Bld)Ordered By: Radha Strickland on 05-10-2024 Erythrocyte distribution width (RBC) [Ratio] 14.3 % 11.5 - 15.0 % [facility] Hematocrit (Bld) [Volume fraction] 22.2 % Low 40.0 - 52.0 % [facility] Hemoglobin (Bld) [Mass/Vol] 7.3 g/dL Low 13.0 - 18.0 g/dL [facility] Interpretation and review of laboratory results Abnormal [facility] MCH (RBC) [Entitic mass] 28.2 pg 26. 0 - 34.[address] [facility] MCHC (RBC) [Mass/Vol] 32.9 % 30.5 - 36.0 % [facility] MCV (RBC) [Entitic vol] 85.7 fL 77.0 - 99.[address] [facility] Platelet mean volume (Bld) [Entitic vol] 9.6 fL 9.0 - 12.[address] [facility] Platelets (Bld) [#/Vol] 110 10*3/uL Low 140 - 440 10*3/uL [facility] RBC (Bld) [#/Vol] 2.59 10*6/uL Low 4.40 - 5.9 0 10*6/uL [facility] WBC (Bld) [#/Vol] 8.8 10*3/uL 3.6 - 10.7 10*3/uL [facility] CBC WITH AUTO DIFFERENTIALon 05-10-2024 Erythrocyte distribution width (RBC) [Ratio] 14.3 % Normal 11.5-15.0 [facility] Comment on above: Performed By: #### L [id number], [id number] ####Nurse Discharge Planner: DANIELLA PEREZ ([phone])[address] Hematocrit (Bld) [Volume fraction] 22.2 % Low 40.0-52.0 [facility] Comment on above: Performed By: #### Verito [id number], [id number] ####Nurse Discharge Planner: DANIELLA PEREZ ([phone])[address] Hemoglobin (Bld) [Mass/Vol] 7.3 g/dL Low 13.0-18.0 [facility] Comment on above: Performed By: #### L [id number], [id number] ####Nurse Discharge Planner: DANIELLA PEREZ ([phone])[address] MCH (RBC) [Entitic mass] 28.2 pg Normal 26.0-34.0 [facility] Comment on above: Performed By: #### L [id number], [id number] ####Nurse Discharge Planner: DANIELLA PEREZ ([phone])[address] MCHC 32.9 % Normal 30.5-36.0 [facility] Comment on above: Performed By: #### L [id number], [id number] ####Nurse Discharge Planner: DANIELLA [phone])[facility] ([facility])[address] [place] [address] MCV (RBC) [Entitic vol] 85.7 fL Normal 77.0-99.0 S [facility] Comment on above: Performed By: #### L [id number], [id number] ####Nurse Discharge Planner: DANIELLA PEREZ ([phone])[facility] ([facility])[address] [place] [address] Platelet mean volume (Bld) [Entitic vol] 9.6 fL Normal 9.0-12.7 [facility] Comment on above: Performed By: #### L [id number], [id number] ####Nurse Discharge Planner: DANIELLA PEREZ ([phone])[facility] ([facility])[address] [place] [address] Platelets (Bld) [#/Vol] 110 10*3/uL Low 140-440 [facility] Comment on above: Performed By: #### Verito [id number], [id number] ####Nurse Discharge Planner: DANIELLA PEREZ ([phone])[facility] ([facility])[address] [place] [address] RBC (Bld) [#/Vol] 2.59 10*6/uL Low 4.40-5.90 [facility] Comment on above: Performed By: #### L [id number], [id number] ####Nurse Discharge Planner: DANIELLA PEREZ ([phone])[facility])[address] [place] [address] WBC (Bld) [#/Vol] 8.8 10*3/uL Normal 3.6-10.7 [facility] Comment on above: Performed By: #### L [id number], [id number] ####Nurse Discharge Planner: DANIELLA PEREZ ([phone])[facility])[address] [place] [address] CBC panel Auto (Bld)on 05-10 Erythrocyte distribution width (RBC) [Ratio] 14.3 % 11.5 - 15.0 % [facility] Hematocrit (Bld) [Volume fraction] 26 % Low 40.0 - 52.0 % [facility] Hemoglobin (Bld) [Mass/Vol] 8.6 g/dL Low 13.0 - 18.0 g/dL [facility] Interpretation and review of laboratory results Abnormal [facility] MCH (RBC) [Entitic mass] 27.8 pg 26. 0 - 34.[address] [facility] MCHC (RBC) [Mass/Vol] 33.1 % 30.5 - 36.0 % [facility] MCV (RBC) [Entitic vol] 84.1 fL 77.0 - 99.[address] [facility] Platelet mean volume (Bld) [Entitic vol] 9.6 fL 9.0 - 12.[address] [facility] Platelets (Bld) [#/Vol] 157 10*3/uL 140 - 440 10*3/uL [facility] RBC (Bld) [#/Vol] 3.09 10*6/uL Low 4.40 - 5.9 0 10*6/uL [facility] WBC (Bld) [#/Vol] 15.4 10*3/uL High 3.6 - 10.7 10*3/uL [facility] Erythrocyte distribution width (RBC) [Ratio] 14 % 11.5 - 15.0 % [facility] Hematocrit (Bld) [Volume fraction] 24.9 % Low 40.0 - 52.0 % [facility] Hemoglobin (Bld) [Mass/Vol] 7.9 g/dL Low 13.0 - 18.0 g/dL [facility] Interpretation and review of laboratory results Abnormal [facility] MCH (RBC) [Entitic mass] 27.4 pg 26. 0 - 34.[address] [facility] MCHC (RBC) [Mass/Vol] 31.7 % 30.5 - 36.0 % [facility] MCV (RBC) [Entitic vol] 86.5 fL 77.0 - 99.[address] [facility] Platelet mean volume (Bld) [Entitic vol] 9.3 fL 9.0 - 12.[address] [facility] Platelets (Bld) [#/Vol] 124 10*3/uL Low 140 - 440 10*3/uL [facility] RBC (Bld) [#/Vol] 2.88 10*6/uL Low 4.40 - 5.9 0 10*6/uL [facility] WBC (Bld) [#/Vol] 11.3 10*3/uL High 3.6 - 10.7 10*3/uL [facility] COMPREHENSIVE METABOLIC PANE Venkata 05-10-2024 Albumin [Mass/Vol] 3.2 g/dL Low 3.4-4.8 [facility] Comment on above: Performed By: #### Verito [id number], [id number], [id number] ####Nurse Discharge Planner: DANIELLA PEREZ ([phone])[facility] ([facility] - [place])[address] [place] [address] ALP [Catalytic activity/Vol] 45 U/L Normal 40-150 [facility] Comment on above: Performed By: #### Verito ABAnnamaria, LAB17, [id number] ####Nurse Discharge Planner: DANIELLA PEREZ ([phone])[facility] ([facility] [place])[address] [place] [address] ALT [Catalytic activity/Vol] U/L Normal <40 [facility] Comment on above: Performed By: #### Verito ABAnnamaria, LAB17, [id number] ####Nurse Discharge Planner: DANIELLA PEREZ ([phone])[facility] ([facility] [place])[address] [place] [address] Anion gap [Moles/Vol] 8 mmol/L Normal 3-13 [facility] Comment on above: Performed By: #### Verito ABAnnamaria, LAB17, [id number] ####Nurse Discharge Planner: DANIELLA PEREZ ([phone])[facility] ([facility] [place])[address] [place] [address] AST [Catalytic activity/Vol] 27 U/L Normal <34 [facility] Comment on above: Performed By: #### Verito ABAnnamaria, LAB17, [id number] ####Nurse Discharge Planner: DANIELLA PEREZ ([phone])[facility])[address] [place] [address] Bilirubin [Mass/Vol] 0.6 mg/dL Normal <1.2 [facility] Comment on above: Performed By: #### L ABAnnamaria, LAB17, [id number] ####Nurse Discharge Planner: DANIELLA PEREZ ([phone])[facility] ([facility] [place] [address] [place] Calcium [Mass/Vol] 8.4 mg/dL Low 8.8-10.0 [facility] Comment on above: Performed By: #### Verito ABAnnamaria, LAB17, [id number] ####Nurse Discharge Planner: DANIELLA PEREZ ([phone])[facility] [place] [address] [place] Chloride [Moles/Vol] 112 mmol/L High 98-107 [facility] Comment on above: Performed By: #### Verito BALBUENA, LAB17, [id number] ####Nurse Discharge Planner: DANIELLA PEREZ ([phone])[facility] [place] [address] CO2 [Moles/Vol] 21 mmol/L Low 23-31 [facility] Comment on above: Performed By: #### Verito BALBUENA, LAB17, [id number] ####Nurse Discharge Planner: DANIELLA PEREZ ([phone])[facility] [place] [address] [place] Creatinine [Mass/Vol] 0.89 mg/dL Normal 0.72-1.25 [facility] Comment on above: Performed By: #### Verito BALBUENA, LAB17, [id number] ####Nurse Discharge Planner: DANIELLA PEREZ ([phone])[facility] ([facility] [place] [address] [place] GLOMERULAR FILTRATION RATE ML/MIN/1.73 SQ M.PREDICTED 85.6 mL/min/1.73m*2 Normal >60.0 [facility] Comment on above: Result Comment: Calc ulation based on the Chronic Kidney Disease Epidemiology Collaboration (CKD-EPI) equation refit without adjustment for race Performed By: #### L ABAnnamaria, LAB17, [id number] ####Nurse Discharge Planner: DANIELLA PEREZ ([phone])[facility] ([facility] [place])[address] [place] [address] [place] Glucose [Mass/Vol] 205 mg/dL High 82-115 [facility] Comment on above: Performed By: #### L AB113, LAB17, [id number] ####Nurse Discharge Planner: DANIELLA PEREZ ([phone])[facility])[address] [place] [address] Potassium [Moles/Vol] 3.1 mmol/L Low 3.5-5.1 [facility] Comment on above: Result Comment: [facility] potassium values may be up to 0.5 mmol/L lower than serum values. Performed By: #### Verito AB113, LAB17, [id number] ####Nurse Discharge Planner: DANIELLA PEREZ ([phone])[facility])[address] [place] [address] Protein [Mass/Vol] 4.5 g/dL Low 6.4-8.3 [facility] Comment on above: Performed By: #### Verito ABAnnamaria, LAB17, [id number] ####Nurse Discharge Planner: DANIELLA PEREZ ([phone])[facility])[address] [place] [address] Sodium [Moles/Vol] 141 mmol/L Normal 136-145 [facility] Comment on above: Performed By: #### Verito ABAnnamaria, LAB17, [id number] ####Nurse Discharge Planner: DANIELLA PEREZ ([phone])[facility])[address] [place] [address] Urea nitrogen [Mass/Vol] 17 mg/dL Normal 9-23 [facility] Comment on above: Performed By: #### Verito ABAnnamaria, LAB17, [id number] ####Nurse Discharge Planner: DANIELLA PEREZ ([phone])[facility])[address] [place] [address] Calcium.ionized [Moles/Vol]o n 05-10-2024 Calcium.ionized (Bld) [Moles/Vol] 4.4 mg/dL 4.30 - 5.20 mg/dL [facility] Interpretation and review of laboratory results Normal [facility] PH, IONIZED CALCIUM 7.39 7.31 - 7.46 [facility] Calcium.ionized (Bld) [Moles/Vol] 4.4 mg/dL 4.30 - 5.20 mg/dL [facility] Interpretation and review of laboratory results Normal [facility] PH, IONIZED CALCIUM 7.33 7.31 - 7.46 [facility] Calcium.ionized [Moles/Vol]O rdered By: Brandt Gilmore on 05-10-2024 Calcium.ionized (Bld) [Moles/Vol] 5.4 mg/dL High 4.30 - 5.20 mg/dL [facility] Interpretation and review of laboratory results Abnormal [facility] PH, IONIZED CALCIUM 7.37 7.31 - 7.46 [facility] Comprehensive metabolic 1998 panelon 05-10-2024 Albumin [Mass/Vol] 3.2 g/dL Low 3.4 - 4.8 g/dL [facility] ALP [Catalytic activity/Vol] 45 U/L 40 - 150 U/L [facility] ALT [Catalytic activity/Vol] U/L NINF - 40 U/L [facility] Anion gap [Moles/Vol] 8 mmol/L 3 - 13 mmol/L [facility] AST [Catalytic activity/Vol] 27 U/L NINF - 34 U/L [facility] Bilirubin [Mass/Vol] 0.6 mg/dL NINF - 1.2 mg/dL [facility] Calcium [Mass/Vol] 8.4 mg/dL Low 8.8 - 10. 0 mg/dL [facility] Chloride [Moles/Vol] 112 mmol/L High 98 - 10 7 mmol/L [facility] CO2 [Moles/Vol] 21 mmol/L Low 23 - 31 mmol/L [facility] Creatinine [Mass/Vol] 0.89 mg/dL 0.72 - 1.25 mg/dL [facility] GFR/1.73 sq M.predicted (S/P/Bld) [Vol rate/Area] 85.6 mL/min - PINF [facility] Glucose [Mass/Vol] 205 mg/dL High 82 - 115 mg/dL [facility] Interpretation and review of laboratory results Abnormal [facility] Potassium [Moles/Vol] 3.1 mmol/L Low 3.5 - 5.1 mmol/L [facility] Protein [Mass/Vol] 4.5 g/dL Low 6.4 - 8.3 g/dL [facility] Sodium [Moles/Vol] 141 mmol/L 136 - 145 mmol/L [facility] Urea nitrogen [Mass/Vol] 17 mg/dL 9 - 23 mg/dL [facility] Consulton 05-10-2024 Consult - Attestation signed by Lilian Cisse MD at 05/10/2024 1:48 PM I have personally performed a face to face diagnostic evaluation on this patient. In addition, I have reviewed the resident's/MEDICAL TECHNOLOGIST MICROBIOLOGY/RD SCIENTIST's care plan and agree with those findings [...] imaging are reviewed as detailed in the resident's/MEDICAL TECHNOLOGIST MICROBIOLOGY/RD SCIENTIST's note Department of Internal Medicine Division of Endocrinology, Diabetes, & Metabolism Endocrinology Note Patient Name: Farhana Thrasher : 1940 AGE: 84 y.o. Room/Bed: OR/NONE Admission Date: 05/10/2024 Visit Date: 05/10/2024 Reason for Endocrine Consult: post op heart Provider/Team Requesting Consult: CTS PCP: KELSEY MOON MD Outpt Wedger Machine: No ASSESSMENT: DM2 with hyperglycemia and retirement insulin Stress hyperglycemia CABGX3 HLD/CAD Obesity Body [...] (GLUCOPHAGE) 1,0 (more content not included)... Normal [facility] Consult - Attestation signed by Luz Hough DO at 05/10/2024 1:52 PM I have personally performed a [id number] diagnostic evaluation on this patient on date of service 05/10/24. History, labs, imaging studies, and electronic medical record have been reviewed by me. This note documented by the []housekeeping attendant [x]JULIO CESAR reflects my history, exam, and [...] set to back up -monitor hemodynamics via [place]. Currently on low dose epi gtt [...] 40 minutes so far today, excluding procedures. [facility] Medical Group: Critical Care Consultation Note [...] Calcium Carb-Cholecalciferol (more content not included)... Normal [facility] FIBRINOGENon 05-10-2024 FIBRINOGEN 225 mg/dL Normal 200-400 [facility] Comment on above: Performed By: #### L [id number], [id number] ####Nurse Discharge Planner: DANIELLA PEREZ ([phone])[facility] ([address] Fibrinogen Coag (PPP) [Mass/ Vol]on 05-10-2024 Interpretation and review of laboratory results Normal [facility] Laboratory - Chemistry and C hemistry - challengeon 05-10-2024 Glucose [Mass/Vol] 160 mg/dL High 70 - 100 mg/dL [facility] Glucose [Mass/Vol] 166 mg/dL High 70 - 100 mg/dL [facility] Glucose [Mass/Vol] 166 mg/dL High 70 - 100 mg/dL [facility] Glucose [Mass/Vol] 160 mg/dL High 70 - 100 mg/dL [facility] Glucose [Mass/Vol] 147 mg/dL High 70 - 100 mg/dL [facility] Glucose [Mass/Vol] 147 mg/dL High 70 - 100 mg/dL [facility] Base excess Calc (Bld) [Moles/Vol] -3 mmol/L -3.0 - 3.0 mmol/L [facility] CO2 (Bld) [Partial pressure] 37.3 mm[Hg] - PINF [facility] CO2 [Moles/Vol] 22.9 mmol/L Low 23.0 - 27.0 mmol/L [facility] HCO3 (Bld) [Moles/Vol] 21.7 mmol/L 21.0 - 25.0 mmol/L [facility] Oxygen (Bld) [Partial pressure] 117 mm[Hg] High [facility] pH (Bld) 7.383 [pH] 7.350 - 7.450 [facility] Glucose [Mass/Vol] 165 mg/dL High 70 - 100 mg/dL [facility] Glucose [Mass/Vol] 180 mg/dL High 70 - 100 mg/dL [facility] Glucose [Mass/Vol] 172 mg/dL High 70 - 100 mg/dL [facility] Magnesium [Mass/Vol] 2.6 mg/dL 1.6 - 2 .6 mg/dL [facility] Base excess Calc (Bld) [Moles/Vol] -6.1000 mmol/L Low -3.0 - 3.0 mmol/L [facility] CO2 (Bld) [Partial pressure] 39.5 mm[Hg] - PINF [facility] CO2 [Moles/Vol] 20.8 mmol/L Low 23.0 - 27.0 mmol/L [facility] HCO3 (Bld) [Moles/Vol] 19.6 mmol/L Low 21.0 - 25.0 mmol/L [facility] Oxygen (Bld) [Partial pressure] 177.8 mm[Hg] High [facility] pH (Bld) 7.313 [pH] Low 7.350 - 7.450 [facility] Glucose [Mass/Vol] 172 mg/dL High 70 - 100 mg/dL [facility] Glucose [Mass/Vol] 153 mg/dL High 70 - 100 mg/dL [facility] Glucose [Mass/Vol] 135 mg/dL High 70 - 100 mg/dL [facility] Magnesium [Mass/Vol] 3.4 mg/dL High 1.6 - 2 .6 mg/dL [facility] Base excess Calc (Bld) [Moles/Vol] -2.2000 mmol/L -3.0 - 3.0 mmol/L [facility] CO2 (Bld) [Partial pressure] 43 mm[Hg] - PINF [facility] CO2 [Moles/Vol] 24.6 mmol/L 23.0 - 27.0 mmol/L [facility] HCO3 (Bld) [Moles/Vol] 23.3 mmol/L 21.0 - 25.0 mmol/L [facility] Oxygen (Bld) [Partial pressure] 387.1 mm[Hg] High [facility] pH (Bld) 7.352 [pH] 7.350 - 7.[address] [facility] Glucose [Mass/Vol] 114 mg/dL High 70 - 100 mg/dL [facility] Laboratory - Chemistry and C hemistry - challengeOrdered By: Keisha Linton on 05-10-2024 Base excess Calc (Bld) [Moles/Vol] -2.5000 mmol/L -3.0 - 3.0 mmol/L [facility] CO2 (Bld) [Partial pressure] 36.3 mm[Hg] - PINF [facility] CO2 [Moles/Vol] 23.1 mmol/L 23.0 - 27.0 mmol/L [facility] HCO3 (Bld) [Moles/Vol] 22 mmol/L 21.0 - 25.0 mmol/L [facility] Oxygen (Bld) [Partial pressure] 123.3 mm[Hg] High [facility] pH (Bld) 7.4 [pH] 7.350 - 7.[address] [facility] Laboratory - Coagulationon 0 05-10-2024 aPTT Coag (PPP) [Time] 27.6 s 20.0 - 30.[address] [facility] Fibrinogen Coag (PPP) [Mass/Vol] 225 mg/dL 200 - 400 mg/dL [facility] INR Coag (PPP) [Relative time] 1.3 {INR} High 0.9 - 1.[address] [facility] PT Coag (Bld) [Time] 14.3 s High 9.0 - 1 2.[address] [facility] Laboratory - Hematology and Cell countsOrdered By: Keisha Linton on 05-10-2024 Hemoglobin (Bld) [Mass/Vol] 8.9 g/dL Screen only [facility] Laboratory - Hematology and Cell countson 05-10-2024 Band form neutrophils (Bld) [#/Vol] 0.1 10*3/uL High NINF - 0.0 10*3/uL [facility] Band form neutrophils/100 WBC (Bld) 1 % High NINF - 0 % [facility] Lymphocytes (Bld) [#/Vol] 0.7 10*3/uL Low 1.0 - 4.3 10*3/uL [facility] Lymphocytes/100 WBC (Bld) 8 % Low 15 - 45 % [facility] Monocytes (Bld) [#/Vol] 0.7 10*3/uL 0.0 - 0.9 10*3/uL [facility] Monocytes/100 WBC (Bld) 8 % 5 - 13 % [facility] Neutrophils (Bld) [#/Vol] 7.4 10*3/uL 1.8 - 7.5 10*3/uL [facility] Ovalocytes LM Ql (Bld) Slight Abnormal (none) [facility] Poikilocytosis LM Ql (Bld) Slight Abnormal (none) [facility] RBC morphology finding Nom (Bld) abnormal [facility] Segmented neutrophils/100 WBC (Bld) 83 % High 38 - 82 % [facility] Hemoglobin (Bld) [Mass/Vol] 7.3 g/dL Screen only [facility] Hemoglobin (Bld) [Mass/Vol] 8.5 g/dL Screen only [facility] Hemoglobin (Bld) [Mass/Vol] 10.2 g/dL Screen only [facility] MAGNESIUMon 05-10-2024 Magnesium [Mass/Vol] 2.6 mg/dL Normal 1.6-2.6 [facility] Comment on above: Result Comment: JEAN CARLOS uNñez COMMENTS: Higher values can be expected in females during menses. Performed By: #### L AB113, LAB17, [id number] ####Nurse Discharge Planner: DANIELLA PEREZ ([phone])[address] Magnesium [Mass/Vol] 3.4 mg/dL High 1.6-2.6 [facility] Comment on above: Result Comment: JEAN CARLOS Nuñez COMMENTS: Higher values can be expected in females during menses. Performed By: #### L [id number], [id number], [id number] ####Nurse Discharge Planner: DANIELLA PEREZ ([phone])[facility])[address] [place] [address] MANUAL DIFFERENTIAL (CELLAVI CAMILO)on 05-10-2024 BAND NEUTROPHILS TOTAL PER COUNTED LEUKOCYTES BY MANUAL COUNT 1 Normal [facility] Comment on above: Performed By: #### L [id number], [id number] ####Nurse Discharge Planner: DANIELLA PEREZ ([phone])[facility] ([facility])[address] [place] [address] [place] BANDS (10*3/UL) IN BLOOD-CELLAVISION 0.1 10*3/uL High <=0.0 [facility] Comment on above: Performed By: #### L [id number], [id number] ####Nurse Discharge Planner: DANIELLA PEREZ ([phone])[facility] ([facility] [place])[address] [place] [address] BASOPHILS TOTAL PER COUNTED LEUKOCYTES BY MANUAL COUNT [facility] Comment on above: Performed By: #### L [id number], [id number] ####Nurse Discharge Planner: DANIELLA PEREZ ([phone])[facility] ([facility] [place])[address] [place] [address] BLASTS TOTAL PER COUNTED LEUKOCYTES BY MANUAL COUNT [facility] Comment on above: Performed By: #### L [id number], [id number] ####Nurse Discharge Planner: DANIELLA PEREZ ([phone])[facility] ([facility] [place])[address] [place] [address] EOSINOPHILS TOTAL PER COUNTED LEUKOCYTES BY MANUAL COUNT [facility] Comment on above: Performed By: #### L [id number], [id number] ####Nurse Discharge Planner: DANIELLA PEREZ ([phone])[facility] ([facility] [place])[address] [place] [address] LYMPHOCYTES (10*3/UL) IN BLOOD-CELLAVISION 0.7 10*3/uL Low 1.0-4.3 [facility] Comment on above: Performed By: #### L [id number], [id number] ####Nurse Discharge Planner: DANIELLA PEREZ ([phone])[facility] ([facility] [place])[address] [place] [address] LYMPHOCYTES TOTAL PER COUNTED LEUKOCYTES BY MANUAL COUNT 8 [facility] Comment on above: Performed By: #### L [id number], [id number] ####Nurse Discharge Planner: DANIELLA PEREZ ([phone])[facility] ([facility] [place])[address] [place] [address] [place] LYMPHOCYTES/100 LEUKOCYTES IN BLOOD-CELLAVISION 8 % Low 15-45 [facility] Comment on above: Performed By: #### L [id number], [id number] ####Nurse Discharge Planner: DANIELLA PEREZ ([phone])[facility] ([facility] [place])[address] [place] [address] [place] METAMYELOCYTES TOTAL PER COUNTED LEUKOCYTES BY MANUAL COUNT Normal [facility] Comment on above: Performed By: #### L [id number], [id number] ####Nurse Discharge Planner: DANIELLA PEREZ ([phone])[facility] ([facility] [place])[address] [place] [address] [place] MONOCYTES (10*3/UL) IN BLOOD-CELLAVISION 0.7 10*3/uL Normal 0.0-0.9 [facility] Comment on above: Performed By: #### L [id number], [id number] ####Nurse Discharge Planner: DANIELLA PEREZ ([phone])[facility] ([facility] [place])[address] [place] [address] [place] MONOCYTES TOTAL PER COUNTED LEUKOCYTES BY MANUAL COUNT 8 Normal [facility] Comment on above: Performed By: #### L [id number], [id number] ####Nurse Discharge Planner: DANIELLA PEREZ ([phone])[facility] ([facility] [place])[address] [place] [address] [place] MONOCYTES/100 LEUKOCYTES IN BLOOD-TALIB 8 % Normal 5-13 [facility] Comment on above: Performed By: #### L [id number], [id number] ####Nurse Discharge Planner: DANIELLA PEREZ ([phone])[facility] ([facility] [place])[address] [place] [address] [place] MYELOCYTES COUNTED BY MANUAL COUNT Normal [facility] Comment on above: Performed By: #### L [id number], [id number] ####Nurse Discharge Planner: DANIELLA PEREZ ([phone])[facility] ([facility] [place])[address] [place] [address] [place] NEUTROPHILS BAND FORM/100 LEUKOCYTES IN BLOOD-CELLAVISI 1 % High <=0 [facility] Comment on above: Performed By: #### L [id number], [id number] ####Nurse Discharge Planner: DANIELLA PEREZ ([phone])[facility] [place] [address] [place] NEUTROPHILS TOTAL PER COUNTED LEUKOCYTES BY MANUAL COUNT 81 Normal [facility] Comment on above: Performed By: #### L [id number], [id number] ####Nurse Discharge Planner: DANIELLA PEREZ ([phone])[facility])[address] [place] [address] OVALOCYTES PRESENCE IN BLOOD BY LIGHT MICROSCOPY Slight Abnormal (none) [facility] Comment on above: Performed By: #### L [id number], [id number] ####Nurse Discharge Planner: DANIELLA PEREZ ([phone])[facility] ([facility] [place])[address] [place] [address] POIKILOCYTOSIS (PRESENCE) IN BLOOD BY LIGHT MICROSCOPY Slight Abnormal (none) [facility] Comment on above: Performed By: #### L [id number], [id number] ####Nurse Discharge Planner: DANIELLA PEREZ ([phone])[facility])[address] [place] [address] PROMYELOCYTES TOTAL PER COUNTED LEUKOCYTES BY MANUAL COUNT Normal [facility] Comment on above: Performed By: #### L [id number], [id number] ####Nurse Discharge Planner: DANIELLA PEREZ ([phone])[facility] ([facility] [place])[address] [place] [address] RBC MORPHOLOGY IN BLOOD abnormal Normal [facility] Comment on above: Performed By: #### L [id number], [id number] ####Nurse Discharge Planner: DANIELLA PEREZ ([phone])[facility] [place] [address] [place] SEGMENTED NEUTROPHILS (10*3/UL) IN BLOOD-CELLAVISION 7.4 10*3/uL Normal 1.8-7.5 [facility] Comment on above: Performed By: #### L [id number], [id number] ####Nurse Discharge Planner: DANIELLA PEREZ ([phone])[facility] [place] [address] [place] SEGMENTED NEUTROPHILS/100 LEUKOCYTES-CE 83 % High 38-82 [facility] Comment on above: Performed By: #### L [id number], [id number] ####Nurse Discharge Planner: DANIELLA PEREZ ([phone])[facility] ([facility] [place] [address] UNCLASSIFIED CELLS TOTAL PER COUNTED LEUKOCYTES BY MANUAL COUNT Normal [facility] Comment on above: Performed By: #### L [id number], [id number] ####Nurse Discharge Planner: DANIELLA PEREZ ([phone])[facility] ([facility] [place])[address] [place] [address] VARIANT LYMPHOCYTES TOTAL PER COUNTED LEUKOCYTES BY MANUAL COUNT Normal [facility] Comment on above: Performed By: #### L [id number], [id number] ####Nurse Discharge Planner: DANIELLA PEREZ ([phone])[facility] ([facility] [place])[address] [place] [address] Magnesium [Mass/Vol]on 05-10 [facility] No Panel Informationon 05-10 Interpretation and review of laboratory results Abnormal [facility] Interpretation and review of laboratory results Abnormal [facility] Blood Expiration Date [id number] [facility] Crossmatch interpretation COMP [facility] Dispense Status Transfused [facility] Product Blood Type [address] [facility] PRODUCT CODE [id number] [facility] ABO O [facility] Unit Number [id number] [facility] RH Positive [facility] Unit Volume 300 mL [facility] Interpretation and review of laboratory results Abnormal [facility] Bands Manual [address] [facility] Interpretation and review of laboratory results Abnormal [facility] Lymphocytes Manual [address] [facility] Monocytes Manual 8 [facility]th Neutrophils Manual 81 [facility] Interpretation and review of laboratory results Abnormal [facility] Interpretation and review of laboratory results Abnormal [facility] Interpretation and review of laboratory results Abnormal [facility] Amount Of Oxygen 2 [facility] Interpretation and review of laboratory results Abnormal [facility] Source Of Oxygen Nasal Cannula (LPM) [facility] Interpretation and review of laboratory results Abnormal [facility] Interpretation and review of laboratory results Abnormal [facility] Interpretation and review of laboratory results Abnormal [facility] Interpretation and review of laboratory results Normal [facility] Amount Of Oxygen 50 [facility] Interpretation and review of laboratory results Abnormal [facility] Source Of Oxygen Ventilator [facility] Interpretation and review of laboratory results Abnormal [facility] Interpretation and review of laboratory results Abnormal [facility] Interpretation and review of laboratory results Abnormal [facility] Interpretation and review of laboratory results Abnormal [facility] Interpretation and review of laboratory results Abnormal [facility] Amount Of Oxygen 100 [facility] Interpretation and review of laboratory results Abnormal [facility] Source Of Oxygen Ventilator [facility]th [facility] Interpretation and review of laboratory results Abnormal [facility] No Panel InformationOrdered By: Keisha Linton on 05-10-2024 Amount Of Oxygen 2lt [facility] Interpretation and review of laboratory results Abnormal [facility] Source Of Oxygen Nasal Cannula (LPM) [facility] Op Noteon 05-10-2024 Op Note Cardiothoracic Surgery [...] Intraoperative transesophageal echocardiography Surgeon: Daysi Velasco MD [employer] Burner(s): [] Yesenia Taylor [] Gladis Melgar [x] [...] protected. An appropriate timeout was conducted. [facility] [place] [facility] Cardiopulmonary Bypass: A LEFT [...] right a (more content not included)... Normal [facility] PHOSPHORUSon 05-10-2024 Phosphate [Mass/Vol] 4.0 mg/dL Normal 2.3-4.7 [facility] Comment on above: Performed By: #### L [id number], [id number], [id number] ####Nurse Discharge Planner: DANIELLA PEREZ ([phone])[address] Phosphate [Mass/Vol] 3.4 mg/dL Normal 2.3-4.7 [facility] Comment on above: Performed By: #### L AB113, [id number], [id number] ####Nurse Discharge Planner: DANIELLA PEREZ ([phone])[facility])[address] [place] [address] PROTIME AND APTTon aPTT Coag (Bld) [Time] 27.6 s Normal 20.0-30.5 [facility] Comment on above: Performed By: #### L [id number], [id number] ####Nurse Discharge Planner: DANIELLA PEREZ ([phone])[facility])[address] [place] [address] INR Coag (PPP) [Relative time] 1.3 {INR} High 0.9-1.1 [facility] Comment on above: Result Comment: Poli [...] prevent Myocardial Infarction Performed By: #### L [id number], [id number] ####Nurse Discharge Planner: DANIELLA PEREZ ([phone])[facility] ([facility])[address] [place] [address] PT Coag (PPP) [Time] 14.3 s High 9.0-12.0 [facility] Comment on above: Performed By: #### Verito [id number], [id number] ####Nurse Discharge Planner: DANIELLA PREEZ ([phone])[facility] ([facility])[address] [place] [address] Phosphate [Moles/Vol]on 04-22 Phosphate [Mass/Vol] 4 mg/dL 2.3 - 4 .7 mg/dL [facility] Interpretation and review of laboratory results Normal [facility] Phosphate [Mass/Vol] 3.4 mg/dL 2.3 - 4 .7 mg/dL [facility] Progress Noteon 05-10-2024 Progress Note Transfusion Medicine Resident Review Note Product type: 1 unit pRBC, O+ Reason for Review: Hemoglobin >7.0 g/dL Indications for Transfusion: 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 Please contact the blood bank if there are any issues receiving the product for transfusion at *[phone] ([facility]) or *[phone] ([facility]) Comment: Close clinical monitoring is indicated to avoid transfusion associated circulatory overload (TACO) during transfusion of patients with impaired cardiac function. Strategies such as slower infusion rates (1 ml/kg body weight/hour), decreasing transfusion volume, and prophylactic use of diuretics for volume reduction may reduce the risk in clinically appropriate patients. Normal [facility] Progress Note Extubated to 5 L NC Normal [facility] US Heart Transesophagealon 0 05-10-2024 CV CPACS HEMO US Heart TransesophagealOrde red By: Jo Saenz on 05-10-2024 [facility] [employer] Work Phone: XR CHEST 1 VIEWon 05-10-2024 XR CHEST 1 VIEW Patient Name: FARHANA THRASHER : 1940 [facility]#: [id number] Exam Date/Time: 05/10/2024 12:51 Procedure: XR CHEST [...] Signed Date/Time: 05/10/2024 1:08 PM EDT Normal [facility] XR Chest Single viewon 05-10 [facility] RADIOLOGY [facility] RADIOLOGY [facility] Radiology Study observation (narrative) [facility] XR Chest Single viewOrdered By: Rayo Woods on 05-10-2024 [facility] [employer] Phone: ECG 12-LEADon 05-07-2024 ECG 12-LEAD IMPRESSION: Sinus bradycardia RBBB and LAFB Probable left ventricular hypertrophy Electronically Signed On 05-07-2024 18:03:43 EDT by [facility] [id number] 05-04-2024 [id number] Medication List Accurate as of May 04, [...] your scheduled surgery time. Please bring your [facility] Surgical folder and medication list with you day of surgery. We encourage you to write down any questions you may have for the surgeon, anesthesiologist, or other members of the surgical team and bring it with you the day of surgery. Please bring photo ID and insurance information. Normal [facility] [id number] 05-04-2024 [id number] Patient instructed t o bring CPAP machine and mask with him on the day of surgery. Patient understood. Normal [facility] [id number] Labs obtained on 1 attempt with 22 gauge needle at [facility] site. Patient tolerated well, site benign. Normal [facility] BLOOD TYPE AND SCREEN GELon 05-04-2024 ABO GROUPING O Normal [facility] Comment on above: Performed By: #### L [id number] ####Nurse Discharge Planner: DANIELLA PEREZ ([phone])[facility] BLOOD BANK ([facility])[address] [place] [address] RH TYPE IN BLOOD Positive Normal [facility] Comment on above: Performed By: #### L AB276 ####Nurse Discharge Planner: DANIELLA PEREZ ([phone])[facility] BLOOD [facility] ([facility])[address] [place] [address] CBC (HEMOGRAM)on 05-04-2024 Erythrocyte distribution width (RBC) [Ratio] 14.1 % Normal 11.5-15.0 [facility] Comment on above: Performed By: #### L [id number] ####Nurse Discharge Planner: DANIELLA PEREZ ([phone])[facility])[address] [place] [address] Hematocrit (Bld) [Volume fraction] 42.3 % Normal 40.0-52.0 [facility] Comment on above: Performed By: #### L [id number] ####Nurse Discharge Planner: DANIELLA PEREZ ([phone])[facility])[address] [place] [address] Hemoglobin (Bld) [Mass/Vol] 13.4 g/dL Normal 13.0-18.0 [facility] Comment on above: Performed By: #### L AB294 ####Nurse Discharge Planner: DANIELLA PEREZ ([phone])[facility])[address] [place] [address] MCH (RBC) [Entitic mass] 26.9 pg Normal 26.0-34.0 [facility] Comment on above: Performed By: #### L AB294 ####Nurse Discharge Planner: DANIELLA PEREZ ([phone])[facility])[address] [place] [address] MCHC 31.7 % Normal 30.5-36.0 [facility] Comment on above: Performed By: #### L AB294 ####Nurse Discharge Planner: DANIELLA PEREZ ([phone])[facility])[address] [place] [address] MCV (RBC) [Entitic vol] 84.8 fL Normal 77.0-99.0 [facility] Comment on above: Performed By: #### L AB294 ####Nurse Discharge Planner: DANIELLA PEREZ ([phone])[facility] ([facility])[address] [place] [address] Platelet mean volume (Bld) [Entitic vol] 9.6 fL Normal 9.0-12.7 [facility] Comment on above: Performed By: #### L AB294 ####Nurse Discharge Planner: DANIELLA PEREZ ([phone])[facility] ([facility])[address] [place] [address] Platelets (Bld) [#/Vol] 199 10*3/uL Normal 140-440 [facility] Comment on above: Performed By: #### L [id number] ####Nurse Discharge Planner: DANIELLA PEREZ ([phone])[facility] ([facility])[address] [place] [address] RBC (Bld) [#/Vol] 4.99 10*6/uL Normal 4.40-5.90 [facility] Comment on above: Performed By: #### L AB294 ####Nurse Discharge Planner: DANIELLA PEREZ ([phone])[facility] ([facility])[address] [place] [address] WBC (Bld) [#/Vol] 5.2 10*3/uL Normal 3.6-10.7 [facility] Comment on above: Performed By: #### L AB294 ####Nurse Discharge Planner: DANIELLA PEREZ ([phone])[facility] ([facility])[address] [place] [address] COMPLETE URINALYSISon 2024 BILIRUBIN, TOTAL PRESENCE IN URINE Negative Normal Negative [facility] Comment on above: Performed By: #### L AB347 ####Nurse Discharge Planner: DANIELLA PEREZ ([phone])[facility] ([facility])[address] [place] [address] Clarity (U) Clear Normal Clear [facility] Comment on above: Performed By: #### L AB347 ####Nurse Discharge Planner: DANIELLA PEREZ ([phone])[facility] ([facility])[address] [place] [address] Color (U) Colorless Normal Lt. Yellow [facility] Comment on above: Performed By: #### L AB347 ####Nurse Discharge Planner: DANIELLA PEREZ ([phone])[facility] ([facility])[address] [place] [address] GLUCOSE (MG/DL) IN URINE 1,000 mg/dL Abnormal Nor mal (<70) [facility] Comment on above: Performed By: #### L AB347 ####Nurse Discharge Planner: DANIELLA PEREZ ([phone])[facility] ([facility])[address] [place] [address] HEMOGLOBIN PRESENCE IN URINE Negative Normal Negative [facility] Comment on above: Performed By: #### L AB347 ####Nurse Discharge Planner: DANIELLA PEREZ ([phone])[facility] ([facility])[address] [place] [address] Ketones Ql (U) Negative Normal Negative [facility] Comment on above: Performed By: #### L AB347 ####Nurse Discharge Planner: DANIELLA PEREZ ([phone])[facility])[address] [place] [address] LEUKOCYTE ESTERASE PRESENCE IN URINE BY TEST STRIP Negative Normal Negative [facility] Comment on above: Performed By: #### L AB347 ####Nurse Discharge Planner: DANIELLA PEREZ ([phone])[facility] ([facility])[address] [place] [address] NITRITE PRESENCE IN URINE Negative Normal Negative [facility] Comment on above: Performed By: #### L AB347 ####Nurse Discharge Planner: DANIELLA PEREZ ([phone])[facility])[address] [place] [address] pH (U) 5.5 [pH] Normal 5.0-8.0 [facility] Comment on above: Performed By: #### L AB347 ####Nurse Discharge Planner: DANIELLA PEREZ ([phone])[facility] ([facility])[address] [place] [address] Protein (U) [Mass/Vol] Negative Normal Negative [facility] Comment on above: Performed By: #### L AB347 ####Nurse Discharge Planner: DANIELLA PEREZ ([phone])[facility])[address] [place] [address] Specific gravity (U) [Rel density] 1.008 Normal 1.005-1.030 [facility] Comment on above: Performed By: #### L AB347 ####Nurse Discharge Planner: DANIELLA PEREZ ([phone])[facility])[address] [place] [address] UROBILINOGEN (MG/DL) IN URINE Normal Normal Normal (0-1) [facility] Comment on above: Performed By: #### L AB347 ####Nurse Discharge Planner: DANIELLA PEREZ ([phone])[facility])[address] [place] [address] COMPREHENSIVE METABOLIC PANE Venkata 05-04-2024 Albumin [Mass/Vol] 3.8 g/dL Normal 3.4-4.8 [facility] Comment on above: Performed By: #### L AB17 ####Nurse Discharge Planner: DANIELLA PEREZ ([phone])[facility])[address] [place] [address] ALP [Catalytic activity/Vol] 86 U/L Normal 40-150 [facility] Comment on above: Performed By: #### L AB17 ####Nurse Discharge Planner: DANIELLA PEREZ ([phone])[facility])[address] [place] [address] ALT [Catalytic activity/Vol] 12 U/L Normal <40 [facility] Comment on above: Performed By: #### L AB17 ####Nurse Discharge Planner: DANIELLA PEREZ ([phone])[facility])[address] [place] [address] Anion gap [Moles/Vol] 9 mmol/L Normal 3-13 [facility] Comment on above: Performed By: #### L AB17 ####Nurse Discharge Planner: DANIELLA PEREZ ([phone])[facility] ([facility])[address] [place] [address] AST [Catalytic activity/Vol] 19 U/L Normal <34 [facility] Comment on above: Performed By: #### L AB17 ####Nurse Discharge Planner: DANIELLA PEREZ ([phone])[facility] ([facility])[address] [place] [address] Bilirubin [Mass/Vol] 0.4 mg/dL Normal <1.2 [facility] Comment on above: Performed By: #### L AB17 ####Nurse Discharge Planner: DANIELLA PEREZ ([phone])[facility] ([facility])[address] [place] [address] Calcium [Mass/Vol] 9.6 mg/dL Normal 8.8-10.0 [facility] Comment on above: Performed By: #### L AB17 ####Nurse Discharge Planner: DANIELLA PEREZ ([phone])[facility] ([facility])[address] [place] [address] [place] Chloride [Moles/Vol] 103 mmol/L Normal 98-107 [facility] Comment on above: Performed By: #### L AB17 ####Nurse Discharge Planner: DANIELLA PEREZ ([phone])[facility] ([facility])[address] [place] [address] [place] CO2 [Moles/Vol] 25 mmol/L Normal 23-31 [facility] Comment on above: Performed By: #### L AB17 ####Nurse Discharge Planner: DANIELLA PEREZ ([phone])[facility] ([facility])[address] [place] [address] [place] Creatinine [Mass/Vol] 0.94 mg/dL Normal 0.72-1.25 [facility] Comment on above: Performed By: #### L AB17 ####Nurse Discharge Planner: DANIELLA PEREZ ([phone])[facility] ([facility])[address] [place] [address] GLOMERULAR FILTRATION RATE ML/MIN/1.73 SQ M.PREDICTED 80.9 mL/min/1.73m*2 Normal >60.0 [facility] Comment on above: Result Comment: Calc ulation based on the Chronic Kidney Disease Epidemiology Collaboration (CKD-EPI) equation refit without adjustment for race Performed By: #### L AB17 ####Nurse Discharge Planner: DANIELLA PEREZ ([phone])[facility])[address] [place] [address] Glucose [Mass/Vol] 90 mg/dL Normal 82-115 [facility] Comment on above: Performed By: #### L AB17 ####Nurse Discharge Planner: DANIELLA PEREZ ([phone])[address] Potassium [Moles/Vol] 3.8 mmol/L Normal 3.5-5.1 [facility] Comment on above: Result Comment: [facility] potassium values may be up to 0.5 mmol/L lower than serum values. Performed By: #### L AB17 ####Nurse Discharge Planner: DANIELLA PEREZ ([phone])[address] Protein [Mass/Vol] 6.7 g/dL Normal 6.4-8.3 [facility] Comment on above: Performed By: #### L AB17 ####Nurse Discharge Planner: DANIELLA PEREZ ([phone])[address] Sodium [Moles/Vol] 137 mmol/L Normal 136-145 [facility] Comment on above: Performed By: #### L AB17 ####Nurse Discharge Planner: DANIELLA PEREZ ([phone])[address] Urea nitrogen [Mass/Vol] 21 mg/dL Normal 9-23 [facility] Comment on above: Performed By: #### L AB17 ####Nurse Discharge Planner: DANIELLA PEREZ ([phone])[facility])[address] [place] [address] HEMOGLOBIN A1Con 05-04-2024 Glucose [Mass/Vol] 166 mg/dL Normal [facility] Comment on above: Result Comment: JEAN CARLOS R COMMENTS: HbA1c values of 5.7-6.4 percent indicate an increased risk for developing diabetes mellitus. HbA1c values greater than or equal to 6.5 percent are diagnostic of diabetes mellitus. For diagnosis of diabetes in individuals without unequivocal hyperglycemia, results should be confirmed by repeat testing. Performed By: #### L AB90 ####Nurse Discharge Planner: DANIELLA PEREZ ([phone])[facility])[address] [place] [address] HEMOGLOBIN A1C 7.4 %HbA1C High <5.7 [facility] Comment on above: Result Comment: Norm al less than 5.7% Prediabetes 5.7% to 6.4% Diabetes 6.5% or higher --HgbA1C levels may not be accurate in patients who have renal disease, received recent blood transfusions, are anemic, or who have dyshemoglobinemia. Performed By: #### L AB90 ####Nurse Discharge Planner: DANIELLA PEREZ ([phone])[address] MRSA BY PCRon 05-04-2024 MRSA BY [...] modified and its performance characteristics determined by [facility]. The [place]. Food and Drug Administration has not approved or cleared this test; however, FDA clearance or approval is not currently required for clinical use. The results are not intended to be used as the sole means for clinical diagnosis or patient management decisions. Normal [facility] Comment on above: Performed By: #### L [id number] #### Nurse Discharge Planner: DANIELLA PEREZ ([phone]) [facility]) [address] [place] [address] PROTIME AND APTTon aPTT Coag (Bld) [Time] 31.6 s High 20.0-30.5 [facility] Comment on above: Performed By: #### L [id number] ####Nurse Discharge Planner: DANIELLA PEREZ ([phone])[facility])[address] [place] [address] INR Coag (PPP) [Relative time] 1.1 {INR} Normal 0.9-1.1 [facility] Comment on above: Result Comment: Poli [...] prevent Myocardial Infarction Performed By: #### Verito [id number] ####Nurse Discharge Planner: DANIELLA PEREZ ([phone])[facility])[address] [place] [address] PT Coag (PPP) [Time] 12.1 s High 9.0-12.0 [facility] Comment on above: Performed By: #### L [id number] ####Nurse Discharge Planner: DANIELLA PEREZ ([phone])[address] Progress Noteon 05-04-2024 Progress Note [employer] Farhana Thrasher : 1940 Primary Care Physician: No primary care provider on file. The patient and/or family/surrogate voluntarily agreed to participate in ACP services. Patient?s cognitive capacity: Patient is Alert and [place] to person, place and time Code Status: [x] [FULL CODE - Continue all advanced life support: CPR,intubation,invasi ve procedures] [_] [DNR-CCA - DO NOT do CPR, intubation] [_] [DNR-MOLDING MACHINE TENDER - Comfort care only] [_] DNR form [...] patient and/or family/surrogate. Azam Mcbride APRN - [facility] Acute care [facility] 05/04/2024, 12:47 PM [facility] XR CHEST 2 VIEWSon 5 XR [...] Electronically Signed Date/Time: 05/04/2024 9:02 PM EDT [facility] XR Chest 2 Viewson 5 1. No acute finding. Report Dictated on Electronically Signed By: Wagner Mclean MD Electronically Signed Date/Time: 05/04/2024 9:02 PM EDT [facility] Patient Name: FARHANA THRASHER : 1940 Exam Date/Time: 05/04/2024 13:00 Procedure: XR CHEST 2 VIEWS Ordering Provider: MCBRIDE NICOLE Reason For Exam: PREOPERATIVE ANESTHESIA CHEST X-RAY TWO VIEWS CLINICAL INDICATION: PREOPERATIVE ANESTHESIA TECHNIQUE: Frontal and lateral views of the chest. COMPARISON: None FINDINGS: Lungs show no significant consolidation. No pleural effusion or pneumothorax. No vascular congestion. Heart size normal. [facility] Wagner Mclean MD - 05/04/2024 Patient Name: [facility] 1940 [id number] Exam Date/Time: 05/04/2024 13:00 Procedure: XR CHEST [...] Electronically Signed Date/Time: 05/04/2024 9:02 PM EDT [facility] Radiology Study observation (narrative) [facility] XR Chest 2 ViewsOrdered By: Wagner Mclean on 05-04-[address] [facility] Work Phone: 29on 04-25-2024 29 Addended by: CARTER LE on: 04/25/2024 01:57 PM Modules accepted: Orders Normal [facility] Office Visiton 04-25-2024 Follow-up visit [id number] Marcus Thrasher 1940 M Date Provider Department Center 04/25/2024 [id number]-ABAYWNODAYSI VEL[facility] None Family History Problem Relation Age of Onset Stroke Mother COPD Father Coronary artery disease Father Coronary artery disease Brother Heart attack Brother Family Status - Relation Status Age at Mother Father Brother Level of Service:13924 MA OFFICE/OUTPATIENT NEW HIGH MDM 60 MINUTES Reason for Visit and Comments: New Patient [542] Normal [facility] Progress Noteon 04-25-2024 Progress Note Pre op teaching done with patient. Instructed to hold NSAIDS 7 days prior to surgery. All other medications per PAT protocol. Pharmacy confirmed. All questions answered. Normal [facility] Progress Note [facility] CARDIOVASCULAR [facility] THORACIC SURGERY [address] [facility] [address] Dept: [phone] Dept Loc: [phone] Visit type: New Reason for Visit: Multivessel [...] Julio Cesar (more content not included)... Normal [facility] Cardiac Cath Diagnosticon Cardiac Cath Diagnostic Normal [facility] Absolute lymphocyte countOrd ered By: Raven Thrasher on 04-21-2024 Lymphocytes Auto (Unsp spec) [#/Vol] 1.33 10*3/uL 0.83-4.51 [facility] Absolute neutrophil countOrd ered By: Raven Thrasher on 04-21-2024 Neutrophils (Bld) [#/Vol] 5.7 10*3/uL 2.0-7.7 [facility] Automated lymphocyte count a s percentage of total leukocytesOrdered By: Raven Thrasher on 04-21-2024 Lymphocytes/100 WBC Auto (Unsp spec) 16.4 % Low 19-41 [facility] BUN/creatinine ratioOrdered By: Raven Thrasher on 04-21-2024 Urea nitrogen/Creatinine [Mass ratio] 24.5 mg/mg High 10-20 [facility] Basic Metabolic Profile (BMP )on 04-21-2024 Anion gap [Moles/Vol] 14 mmol/L Normal 5-15 [facility] Comment on above: Performed By: #### L 500.2500, L100.0100, L300.3900 ####[facility] [address] [place], [address] BUN/CRE 24.5 RATIO High 10- [facility] Comment on above: Performed By: #### L 500.2500, L100.0100, L300.3900 ####[facility] [address] [place], [address] Calcium [Mass/Vol] 9.3 mg/dL Normal 7.6-11.0 [facility] Comment on above: Performed By: #### L 500.2500, L100.0100, L300.3900 ####[facility] [address] [place], [address] Chloride [Moles/Vol] 104 mmol/L Normal 96-108 [facility] Comment on above: Performed By: #### L 500.2500, L100.0100, L300.3900 ####[facility] [address] [place], [address] CO2 [Moles/Vol] 21.9 mmol/L Low 22.0-29.0 [facility] Comment on above: Performed By: #### L 500.2500, L100.0100, L300.3900 ####[facility] [address] [place], [address] Creatinine [Mass/Vol] 0.96 mg/dL Normal 0.70-1.20 [facility] Comment on above: Performed By: #### L 500.2500, L100.0100, L300.3900 ####[facility] [address] [place], [address] GFR/1.73 sq M.predicted among non-blacks MDRD (S/P/Bld) [Vol rate/Area] 79 mL/min/{1.73_m2} Normal >60 [facility] Comment on above: Result Comment: mL/m in/1.73m2 CKD-EPI Creatinine Equation (2020) Performed By: #### L 500.2500, L100.0100, L300.3900 ####[facility] [address] [place], [address] Glucose [Mass/Vol] 149 mg/dL High 70-99 [facility] Comment on above: Performed By: #### L 500.2500, L100.0100, L300.3900 ####[facility] [address] [place], [address] Potassium [Moles/Vol] 4.6 mmol/L Normal 3.3-5.1 [facility] Comment on above: Performed By: #### L 500.2500, L100.0100, L300.3900 ####[facility] [address] [place], [address] Sodium [Moles/Vol] 139 mmol/L Normal 133-145 [facility] Comment on above: Performed By: #### L 500.2500, L100.0100, L300.3900 ####[facility] [address] [place], [address] Urea nitrogen [Mass/Vol] 24 mg/dL High 4-19 [facility] Comment on above: Performed By: #### L 500.2500, L100.0100, L300.3900 ####[facility] [address] [place], [address] Basophil percentageOrdered B y: Raven Thrasher on 04-21-2024 Basophils/100 WBC (Bld) 0.7 % 0-[address] [facility] CBC W/Diff, Automatedon 03-26 Absolute Lymph 1.33 X10 3/uL Normal 0.83-4.51 [facility] Comment on above: Performed By: #### L 500.2500, L100.0100, L300.3900 ####[facility] [address] [place], [address] Absolute Neut 5.7 X10 3/uL Normal 2.0-7.7 [facility] Comment on above: Performed By: #### L 500.2500, L100.0100, L300.3900 ####[facility] [address] [place], [address] Basophils/100 WBC (Bld) 0.7 % Normal 0-[address] [facility] Comment on above: Performed By: #### L 500.2500, L100.0100, L300.3900 ####[facility] [address] [place], [address] Eosinophils/100 WBC (Bld) 1.0 % Normal 0-5 [facility] Comment on above: Performed By: #### L 500.2500, L100.0100, L300.3900 ####[facility] [address] [place], [address] Erythrocyte distribution width (RBC) [Ratio] 14.1 % Normal 11.6-14.6 [facility] Comment on above: Performed By: #### L 500.2500, L100.0100, L300.3900 ####[facility] [address] [place], [address] Hematocrit (Bld) [Volume fraction] 40.8 % Normal 40-54 [facility] Comment on above: Performed By: #### L 500.2500, L100.0100, L300.3900 ####[facility] [address] [place], [address] Hemoglobin (Bld) [Mass/Vol] 13.3 g/dL Normal 13.0-16.5 [facility] Comment on above: Performed By: #### L 500.2500, L100.0100, L300.3900 ####[facility] [address] [place], [address] IG% 0.900 Normal 0.0-0.9 [facility] Comment on above: Result Comment: IG% - Immature Granulocytes (promyelocytes, myelocytes andmetamyelocytes) > 1% indicates that a LEFT SHIFT is Present. Performed By: #### L 500.2500, L100.0100, L300.3900 ####[facility] [address] [place], [address] Lymphocytes/100 WBC (Bld) 16.4 % Low 19-41 [facility] Comment on above: Performed By: #### L 500.2500, L100.0100, L300.3900 ####[facility] [address] [place], [address] MCH (RBC) [Entitic mass] 27.8 pg Normal 27.0-32.0 [facility] Comment on above: Performed By: #### L 500.2500, L100.0100, L300.3900 ####[facility] [address] [place], [address] MCHC (RBC) [Mass/Vol] 32.6 g/dL Normal 32-36 [facility] Comment on above: Performed By: #### L 500.2500, L100.0100, L300.3900 ####[facility] [address] [place], [address] MCV (RBC) [Entitic vol] 85.2 fL Normal 80-94 [facility] Comment on above: Performed By: #### L 500.2500, L100.0100, L300.3900 ####[facility] [address] [place], [address] Monocytes/100 WBC (Bld) 11.1 % High 0-10 [facility] Comment on above: Performed By: #### L 500.2500, L100.0100, L300.3900 ####[facility] [address] [place], [address] Neutrophils/100 WBC (Bld) 69.9 % Normal 47-70 [facility] Comment on above: Performed By: #### L 500.2500, L100.0100, L300.3900 ####[facility] [address] [place], [address] Nucleated RBC (Bld) [#/Vol] 0 10*3/uL Normal 0-5 [facility] Comment on above: Performed By: #### L 500.2500, L100.0100, L300.3900 ####[facility] [address] [place], [address] Platelet mean volume (Bld) [Entitic vol] 9.2 fL Normal 6.2-12.0 [facility] Comment on above: Performed By: #### L 500.2500, L100.0100, L300.3900 ####[facility] [address] [place], [address] Platelets (Bld) [#/Vol] 195 10*3/uL Normal 150-450 [facility] Comment on above: Performed By: #### L 500.2500, L100.0100, L300.3900 ####[facility] [address] [place], [address] RBC (Bld) [#/Vol] 4.79 10*6/uL Normal 4.6-6.2 [facility] Comment on above: Performed By: #### L 500.2500, L100.0100, L300.3900 ####[facility] [address] [place], [address] RDW SD 43.5 fl Normal 35.1-43.9 [facility] Comment on above: Performed By: #### L 500.2500, L100.0100, L300.3900 ####[facility] [address] [place], [address] WBC (Bld) [#/Vol] 8.1 10*3/uL Normal 4.4-11.0 [facility] Comment on above: Performed By: #### L 500.2500, L100.0100, L300.3900 ####[facility] [address] [place], [address] Carbon dioxide measurementOr dered By: Raven Thrasher on 04-21-2024 CO2 [Moles/Vol] 21.9 mmol/L Low 22.0-29.0 [facility] Chest PA and Lateralon 04-21 Chest PA and Lateral Normal [facility] Chloride measurementOrdered By: Raven Thrasher on 04-21-2024 Chloride [Moles/Vol] 104 mmol/L 96-108 [facility] Eosinophil percentageOrdered By: Raven Thrasher on 04-21-2024 Eosinophils/100 WBC (Bld) 1.0 % 0-5 [facility] Erythrocyte distribution wid th ratioOrdered By: Raven Thrasher on 04-21-2024 Erythrocyte distribution width (RBC) [Ratio] 14.1 % 11.6-14.6 [facility] Erythrocyte distribution wid th standard deviationOrdered By: Raven Thrasher on 04-21-2024 Erythrocyte distribution width (RBC) [Entitic vol] 43.5 fL 35.1-43.9 [facility] Erythrocyte distribution width (RBC) [Ratio] 43.5 fl 35.1-43.9 [facility] GFR/1.73 sq M.predicted [place] g non-blacks MDRD (S/P/Bld) [Vol rate/Area]Ordered By: Raven Thrasher on 04-21-2024 Estimated GFR (MDRD) Non-Af Amer 79 >60 [facility] Comment on above: mL/min/1.73m2 CKD-EP I Creatinine Equation (2020) Glomerular filtration rate ( GFR) estimation/1.73 sq m using serum, plasma, or whole bOrdered By: Raven Thrasher on 04-21-2024 GFR/1.73 sq M.predicted among non-blacks MDRD (S/P/Bld) [Vol rate/Area] 79 mL/min/{1.73_m2} >60 [facility] Comment on above: mL/min/1.73m2 CKD-EP I Creatinine Equation (2020) Hematocrit Auto (Bld) [Volum e fraction]Ordered By: Raven Thrasher on 04-21-2024 Hematocrit (Bld) [Volume fraction] 40.8 % 40-54 [facility] Hemoglobin measurementOrdere d By: Raven Thrasher on 04-21-2024 Hemoglobin (Bld) [Mass/Vol] 13.3 g/dL 13.0-16.5 [facility] Immature granulocytes/100 WB C Auto (Bld)Ordered By: Raven Thrasher on 04-21-2024 Immature granulocytes/100 WBC (Bld) 0.900 % 0.0-0.9 [facility] Comment on above: IG% - Immature Granu locytes (promyelocytes, myelocytes and metamyelocytes) > 1% indicates that a LEFT SHIFT is Present. International normalized rat io (INR) calculationOrdered By: Raven Thrasher on 04-21-2024 INR Coag (Bld) [Relative time] 1.1 {INR} [facility] Lymphocytes Auto (Unsp spec) [#/Vol]Ordered By: Raven Thrasher on 04-21-2024 Lymphocytes (Bld) [#/Vol] 1.33 10*3/uL 0.83-4.51 [facility] Lymphocytes/100 WBC Auto (Un sp spec)Ordered By: Raven Thrasher on 04-21-2024 Lymphocytes/100 WBC (Bld) 16.4 % Low 19-41 [facility] MCV (mean corpuscular volume ) determinationOrdered By: Raven Thrasher on 04-21-2024 MCV (RBC) [Entitic vol] 85.2 fL 80-[address] [facility] Mean corpuscular hemoglobin (MCH) determinationOrdered By: Raven Thrasher on 04-21-2024 MCH (RBC) [Entitic mass] 27.8 pg 27.0-32.0 [facility] Mean corpuscular hemoglobin concentration (MCHC) determinationOrdered By: Raven Thrasher on 04-21-2024 MCHC (RBC) [Mass/Vol] 32.6 g/dL 32-36 [facility] Mean platelet volume determi nationOrdered By: Raven Thrasher on 04-21-2024 Platelet mean volume (Bld) [Entitic vol] 9.2 fL 6.2-12.0 [facility] Monocyte percentageOrdered B y: Raven Thrasher on 04-21-2024 Monocytes/100 WBC (Bld) 11.1 % High 0-[address] [facility] Neutrophil percentageOrdered By: Raven Thrasher on 04-21-2024 Neutrophils/100 WBC (Bld) 69.9 % 47-70 [facility] Nucleated red blood cell per centageOrdered By: Raven Thrasher on 04-21-2024 Nucleated RBC/100 WBC (Bld) [Ratio] 0 % 0-5 [facility] Platelet countOrdered By: Lynette Thrasher on 04-21-2024 Platelets (Bld) [#/Vol] 195 10*3/uL 150-450 [facility] Prothrombin Time w/INRon INR Coag (PPP) [Relative time] 1.1 {INR} Normal [facility] Comment on above: Performed By: #### L 500.2500, L100.0100, L300.3900 ####[facility] [address] [place], [address] PT Coag (PPP) [Time] 14.2 s Normal 11.7-14.9 [facility] Comment on above: Performed By: #### L 500.2500, L100.0100, L300.3900 ####[facility] [address] [place], [address] Prothrombin timeOrdered By: Raven Thrasher on 04-21-2024 PT Coag (PPP) [Time] 14.2 s 11.7-14.9 [facility] RBC Auto (Bld) [#/Vol]Ordere d By: Raven Thrasher on 04-21-2024 RBC (Bld) [#/Vol] 4.79 10*6/uL 4.6-6.2 [facility] Serum creatinine measurement (mass/volume)Ordered By: Raven Thrasher on 04-21-2024 Creatinine [Mass/Vol] 0.96 mg/dL 0.70-1.20 [facility] Serum glucose measurement (m ass/volume)Ordered By: Raven Thrasher on 04-21-2024 Glucose [Mass/Vol] 149 mg/dL High 70-99 [facility] Serum or plasma anion gap de termination (moles/volume)Ordered By: Raven Thrasher on 04-21-2024 Anion gap [Moles/Vol] 14 mmol/L 5-15 [facility] Serum or plasma calcium mt urement (mass/volume)Ordered By: Raven Thrasher on 04-21-2024 Calcium [Mass/Vol] 9.3 mg/dL 7.6-11.0 [facility] Serum or plasma potassium me asurementOrdered By: Raven Thrasher on 04-21-2024 Potassium [Moles/Vol] 4.6 mmol/L 3.3-5.1 [facility] Serum or plasma sodium measu rement (moles/volume)Ordered By: Raven Thrasher on 04-21-2024 Sodium [Moles/Vol] 139 mmol/L 133-145 [facility] Serum or plasma urea nitroge n measurement (mass/volume)Ordered By: Raven Thrasher on 04-21-2024 Urea nitrogen [Mass/Vol] 24 mg/dL High 4-19 [facility] White blood cell (WBC) count Ordered By: Raven Thrasher on 04-21-2024 WBC (Bld) [#/Vol] 8.1 10*3/uL 4.4-11.0 [facility] Stress Reporton 04-20-2024 Stress Report Normal [facility] Carotid Duplex Ultrasoundon 04-17-2024 Carotid Duplex Ultrasound Normal [facility] Echo Completeon 04-17-2024 Echo Complete Normal [facility] Cardiology Visit Reporton Cardiology Visit Report Normal [facility] Testosterone Freeon 03-12-19 25 TESTOSTER FREE 1.1 pg/mL Abnormal 6.6-18.1 [facility] Comment on above: Result Comment: Perf ormed at: [facility] [id number] Director: Lucas Sorto MD, Phone: [phone] Performed By: #### L 500.4050, L501.9520, L501.9985, L100.0100, L3400.4800, L500.4100, L506.1000 ####[facility] [address] [place], [place], [id number] DOrdered By: Heidy Moon on 03-07-2024 Vitamin D 25-Hydroxy 40.2 ng/mL [facility] Comment on above: Vitamin D 25(OH) Sta tus Range Deficiency <20 ng/mL (50nmol/L) Insufficiency 20 - 30 ng/mL (50 - 75 nmol/L) Sufficiency 30 - 100 ng/mL (75 - 250 nmol/L) Toxicity >100 ng/mL (>250 nmol/L) Absolute neutrophil countOrd ered By: Fredis Moon on 03-07-2024 Neutrophils (Bld) [#/Vol] 4.8 10*3/uL 2.0-7.7 [facility] Albumin to globulin ratioOrd ered By: Fredis Moon on 03-07-2024 Albumin/Globulin [Mass ratio] 0.9 {ratio} 0.9-2.4 [facility] Basophil percentageOrdered B y: Fredis Moon on 03-07-2024 Basophils/100 WBC (Bld) 0.7 % 0-[address] [facility] Bilirubin, totalOrdered By: Fredis Moon on 03-07-2024 Bilirubin [Mass/Vol] 0.40 mg/dL 0.20-1.00 [facility] Comment on above: For patients on eltr ombopag therapy, use of Dimension [place] TBIL is not recommended. Blood urea nitrogen (BUN)/cr eatinine ratioOrdered By: Fredis Red on 03-07-2024 Urea nitrogen/Creatinine [Mass ratio] 25.1 mg/mg High 10-20 [facility] CBC W/Diff, Automatedon 02-22 Absolute Lymph 1.25 X10 3/uL Normal 0.83-4.51 [facility] Comment on above: Performed By: #### L 500.4050, L501.9520, L501.9985, L100.0100, L3400.4800, L500.4100, L506.1000 ####[facility] [address] [place], [address] Absolute Neut 4.8 X10 3/uL Normal 2.0-7.7 [facility] Comment on above: Performed By: #### L 500.4050, L501.9520, L501.9985, L100.0100, L3400.4800, L500.4100, L506.1000 ####[facility] [address] [place], [address] Basophils/100 WBC (Bld) 0.7 % Normal 0-[address] [facility] Comment on above: Performed By: #### L 500.4050, L501.9520, L501.9985, L100.0100, L3400.4800, L500.4100, L506.1000 ####[facility] [address] [place], [address] Eosinophils/100 WBC (Bld) 1.4 % Normal 0-5 [facility] Comment on above: Performed By: #### L 500.4050, L501.9520, L501.9985, L100.0100, L3400.4800, L500.4100, L506.1000 ####[facility] [address] [place], [address] Erythrocyte distribution width (RBC) [Ratio] 14.1 % Normal 11.6-14.6 [facility] Comment on above: Performed By: #### L 500.4050, L501.9520, L501.9985, L100.0100, L3400.4800, L500.4100, L506.1000 ####[facility] [address] [place], [address] Hematocrit (Bld) [Volume fraction] 40.6 % Normal 40-54 [facility] Comment on above: Performed By: #### L 500.4050, L501.9520, L501.9985, L100.0100, L3400.4800, L500.4100, L506.1000 ####[facility] [address] [place], [address] Hemoglobin (Bld) [Mass/Vol] 13.0 g/dL Normal 13.0-16.5 [facility] Comment on above: Performed By: #### L 500.4050, L501.9520, L501.9985, L100.0100, L3400.4800, L500.4100, L506.1000 ####[facility] [address] [place], [address] IG% 1.100 High 0.0-0.9 [facility] Comment on above: Result Comment: IG% - Immature Granulocytes (promyelocytes, myelocytes andmetamyelocytes) > 1% indicates that a LEFT SHIFT is Present. Performed By: #### L 500.4050, L501.9520, L501.9985, L100.0100, L3400.4800, L500.4100, L506.1000 ####[facility] [address] [place], [address] Lymphocytes/100 WBC (Bld) 17.5 % Low 19-41 [facility] Comment on above: Performed By: #### L 500.4050, L501.9520, L501.9985, L100.0100, L3400.4800, L500.4100, L506.1000 ####[facility] [address] [place], [address] MCH (RBC) [Entitic mass] 27.5 pg Normal 27.0-32.0 [facility] Comment on above: Performed By: #### L 500.4050, L501.9520, L501.9985, L100.0100, L3400.4800, L500.4100, L506.1000 ####[facility] [address] [place], [address] MCHC (RBC) [Mass/Vol] 32.0 g/dL Normal 32-36 [facility] Comment on above: Performed By: #### L 500.4050, L501.9520, L501.9985, L100.0100, L3400.4800, L500.4100, L506.1000 ####[facility] [address] [place], [address] MCV (RBC) [Entitic vol] 86.0 fL Normal 80-[address] [facility] Comment on above: Performed By: #### L 500.4050, L501.9520, L501.9985, L100.0100, L3400.4800, L500.4100, L506.1000 ####[facility] [address] [place], [address] Monocytes/100 WBC (Bld) 12.5 % High 0-[address] [facility] Comment on above: Performed By: #### L 500.4050, L501.9520, L501.9985, L100.0100, L3400.4800, L500.4100, L506.1000 ####[facility] [address] [place], [address] Neutrophils/100 WBC (Bld) 66.8 % Normal 47-70 [facility] Comment on above: Performed By: #### L 500.4050, L501.9520, L501.9985, L100.0100, L3400.4800, L500.4100, L506.1000 ####[facility] [address] [place], [address] Nucleated RBC (Bld) [#/Vol] 0 10*3/uL Normal 0-5 [facility] Comment on above: Performed By: #### L 500.4050, L501.9520, L501.9985, L100.0100, L3400.4800, L500.4100, L506.1000 ####[facility] [address] [place], [address] Platelet mean volume (Bld) [Entitic vol] 9.2 fL Normal 6.2-12.0 [facility] Comment on above: Performed By: #### L 500.4050, L501.9520, L501.9985, L100.0100, L3400.4800, L500.4100, L506.1000 ####[facility] [address] [place], [address] Platelets (Bld) [#/Vol] 198 10*3/uL Normal 150-450 [facility] Comment on above: Performed By: #### L 500.4050, L501.9520, L501.9985, L100.0100, L3400.4800, L500.4100, L506.1000 ####[facility] [address] [place], [address] RBC (Bld) [#/Vol] 4.72 10*6/uL Normal 4.6-6.2 [facility] Comment on above: Performed By: #### L 500.4050, L501.9520, L501.9985, L100.0100, L3400.4800, L500.4100, L506.1000 ####[facility] [address] [place], [address] RDW SD 44.3 fl High 35.1-43.9 [facility] Comment on above: Performed By: #### L 500.4050, L501.9520, L501.9985, L100.0100, L3400.4800, L500.4100, L506.1000 ####[facility] [address] [place], [address] WBC (Bld) [#/Vol] 7.1 10*3/uL Normal 4.4-11.0 [facility] Comment on above: Performed By: #### L 500.4050, L501.9520, L501.9985, L100.0100, L3400.4800, L500.4100, L506.1000 ####[facility] [address] [place], [address] Carbon dioxide measurementOr dered By: Fredis Moon on 03-07-2024 CO2 [Moles/Vol] 30.0 mmol/L 21.0-32.0 [facility] Chloride measurementOrdered By: Fredis Moon on 03-07-2024 Chloride [Moles/Vol] 107 mmol/L 98-107 [facility] Comprehensive Metabolic Prof ilon 03-07-2024 Albumin [Mass/Vol] 3.3 g/dL Normal 3.2-5.0 [facility] Comment on above: Performed By: #### L 500.4050, L501.9520, L501.9985, L100.0100, L3400.4800, L500.4100, L506.1000 ####[facility] [address] [place], [address] Albumin/Globulin [Mass ratio] 0.9 {ratio} Normal 0.9-2.4 [facility] Comment on above: Performed By: #### L 500.4050, L501.9520, L501.9985, L100.0100, L3400.4800, L500.4100, L506.1000 ####[facility] [address] [place], [address] ALK P 103 U/L Normal 45-117 [facility] Comment on above: Performed By: #### L 500.4050, L501.9520, L501.9985, L100.0100, L3400.4800, L500.4100, L506.1000 ####[facility] [address] [place], [address] ALT [Catalytic activity/Vol] 18 U/L Normal 16-61 [facility] Comment on above: Performed By: #### L 500.4050, L501.9520, L501.9985, L100.0100, L3400.4800, L500.4100, L506.1000 ####[facility] [address] [place], [address] AST [Catalytic activity/Vol] 15 U/L Normal 15-37 [facility] Comment on above: Performed By: #### L 500.4050, L501.9520, L501.9985, L100.0100, L3400.4800, L500.4100, L506.1000 ####[facility] [address] [place], [address] Bilirubin [Mass/Vol] 0.40 mg/dL Normal 0.20-1.00 [facility] Comment on above: Result Comment: For patients on eltrombopag therapy, use of Dimension [place] TBIL is not recommended. Performed By: #### L 500.4050, L501.9520, L501.9985, L100.0100, L3400.4800, L500.4100, L506.1000 ####[facility] [address] [place], [address] BUN/CRE 25.1 RATIO High 10-20 [facility] Comment on above: Performed By: #### L 500.4050, L501.9520, L501.9985, L100.0100, L3400.4800, L500.4100, L506.1000 ####[facility] [address] [place], [address] CA,Total 8.8 mg/dL Normal 8.5-10.1 [facility] Comment on above: Performed By: #### L 500.4050, L501.9520, L501.9985, L100.0100, L3400.4800, L500.4100, L506.1000 ####[facility] [address] [place], [address] Chloride [Moles/Vol] 107 mmol/L Normal 98-107 [facility] Comment on above: Performed By: #### L 500.4050, L501.9520, L501.9985, L100.0100, L3400.4800, L500.4100, L506.1000 ####[facility] [address] [place], [address] CO2 [Moles/Vol] 30.0 mmol/L Normal 21.0-32.0 [facility] Comment on above: Performed By: #### L 500.4050, L501.9520, L501.9985, L100.0100, L3400.4800, L500.4100, L506.1000 ####[facility] [address] [place], [place], [id number] Creatinine [Mass/Vol] 1.00 mg/dL Normal 0.70-1.30 [facility] Comment on above: Result Comment: The validity of the calculated GFR GFRAA in patients over70 years has not been determined. Clinical correlation isessential. Performed By: #### L 500.4050, L501.9520, L501.9985, L100.0100, L3400.4800, L500.4100, L506.1000 ####[facility] [address] [place], [place], [id number] EST GFR - AA 93 mL/min Normal >60 [facility] Comment on above: Result Comment: Afri can [place] GFR Calc Performed By: #### L 500.4050, L501.9520, L501.9985, L100.0100, L3400.4800, L500.4100, L506.1000 ####[facility] [address] [place], [place], [id number] GAP 5 Normal 5-15 [facility] Comment on above: Performed By: #### L 500.4050, L501.9520, L501.9985, L100.0100, L3400.4800, L500.4100, L506.1000 ####[facility] [address] [place], [place], [id number] GFR/1.73 sq M.predicted among non-blacks MDRD (S/P/Bld) [Vol rate/Area] 77 mL/min/{1.73_m2} Normal >60 [facility] Comment on above: Result Comment: Non- GFR Calc Performed By: #### L 500.4050, L501.9520, L501.9985, L100.0100, L3400.4800, L500.4100, L506.1000 ####[facility] [address] [place], [address] Globulin (S) [Mass/Vol] 3.6 g/dL Normal 2.2-4.2 [facility] Comment on above: Performed By: #### L 500.4050, L501.9520, L501.9985, L100.0100, L3400.4800, L500.4100, L506.1000 ####[facility] [address] [place], [address] Glucose [Mass/Vol] 141 mg/dL High 74-106 [facility] Comment on above: Result Comment: Fast ing Glucose result greater than or equal to 126 mg/dLsuggests DIABETES MELLITUS per A.D.A. criteria. Performed By: #### L 500.4050, L501.9520, L501.9985, L100.0100, L3400.4800, L500.4100, L506.1000 ####[facility] [address] [place], [address] Potassium [Moles/Vol] 4.9 mmol/L Normal 3.5-5.1 [facility] Comment on above: Performed By: #### L 500.4050, L501.9520, L501.9985, L100.0100, L3400.4800, L500.4100, L506.1000 ####[facility] [address] [place], [address] Sodium [Moles/Vol] 142 mmol/L Normal 136-145 [facility] Comment on above: Performed By: #### L 500.4050, L501.9520, L501.9985, L100.0100, L3400.4800, L500.4100, L506.1000 ####[facility] [address] [place], [address] T PROT 6.9 g/dL Normal 6.4-8.2 [facility] Comment on above: Performed By: #### L 500.4050, L501.9520, L501.9985, L100.0100, L3400.4800, L500.4100, L506.1000 ####[facility] [address] [place], [address] Urea nitrogen [Mass/Vol] 25 mg/dL High 7-18 [facility] Comment on above: Performed By: #### L 500.4050, L501.9520, L501.9985, L100.0100, L3400.4800, L500.4100, L506.1000 ####[facility] [address] [place], [address] Eosinophil percentageOrdered By: Fredis Moon on 03-07-2024 Eosinophils/100 WBC (Bld) 1.4 % 0-5 [facility] Erythrocyte distribution wid th ratioOrdered By: Fredis Moon on 03-07-2024 Erythrocyte distribution width (RBC) [Ratio] 14.1 % 11.6-14.6 [facility] Erythrocyte distribution wid th standard deviationOrdered By: Fredis Moon on 03-07-2024 Erythrocyte distribution width (RBC) [Entitic vol] 44.3 fL High 35.1-43.9 [facility] Estimated glomerular filtrat ion rate (GFR) AmericanOrdered By: Fredis Moon on 03-07-2024 Estimated GFR (MDRD) Amer 93 mL/min >60 [facility] Comment on above: GFR Calc Glomerular filtration rate ( GFR) estimationOrdered By: Fredis Moon on 03-07-2024 Estimated GFR (MDRD) Non-Af Amer 77 mL/min >60 [facility] Comment on above: Non- GFR Calc Glucose measurementOrdered B y: Fredis Moon on 03-07-2024 Glucose [Mass/Vol] 141 mg/dL High 74-106 [facility] Comment on above: Fasting Glucose resu lt greater than or equal to 126 mg/dL suggests DIABETES MELLITUS per A.D.A. criteria. Hematocrit Auto (Bld) [Volum e fraction]Ordered By: Fredis Moon on 03-07-2024 Hematocrit (Bld) [Volume fraction] 40.6 % 40-54 [facility] Hemoglobin A1con 03-07-2024 HbA1c (Bld) [Mass fraction] 7.8 % High 3.8-5.6 [facility] Comment on above: Result Comment: Norm al < 5.7 % Prediabetic 5.7 - 6.4 % Diabetic >or= 6.5 % Please note range changes. Performed By: #### L 500.4050, L501.9520, L501.9985, L100.0100, L3400.4800, L500.4100, L506.1000 ####[facility] [address] [place], [address] Hemoglobin A1c percentageOrd ered By: Fredis Moon on 03-07-2024 HbA1c (Bld) [Mass fraction] 7.8 % High 3.8-5.6 [facility] Comment on above: Normal < 5.7 % Predi abetic 5.7 - 6.4 % Diabetic >or= 6.5 % Please note range changes. Hemoglobin measurementOrdere d By: Fredis Moon on 03-07-2024 Hemoglobin (Bld) [Mass/Vol] 13.0 g/dL 13.0-16.5 [facility] High density lipoprotein (HD L) measurementOrdered By: Fredis Moon on 03-07-2024 Cholesterol in HDL [Mass/Vol] 45 mg/dL >40 [facility] Comment on above: The drugs N-Acetylcy steine and Metamizole may falsely depress this assay. Reference Range HDL <40 mg/dL Low HDL Cholesterol HDL >or= 60 mg/dL High HDL Cholesterol Immature granulocytes/100 WB C Auto (Bld)Ordered By: Fredis Moon on 03-07-2024 Immature granulocytes/100 WBC (Bld) 1.100 % High 0.0-0.9 [facility] Comment on above: IG% - Immature Granu locytes (promyelocytes, myelocytes and metamyelocytes) > 1% indicates that a LEFT SHIFT is Present. Laboratory - Chemistry and C hemistry - challengeOrdered By: Fredis Moon on 03-07-2024 AST [Catalytic activity/Vol] 15 U/L 15-37 [facility] Lipid Profileon 03-07-2024 Cholesterol [Mass/Vol] 113 mg/dL Normal 200 [facility] Comment on above: Result Comment: <200 mg/dL Desirable 200-240 mg/dL Borderline >240 mg/dL High Risk Performed By: #### L 500.4050, L501.9520, L501.9985, L100.0100, L3400.4800, L500.4100, L506.1000 ####[facility] [address] [place], [address] Cholesterol in HDL [Mass/Vol] 45 mg/dL Normal [facility] Comment on above: Result Comment: The drugs N-Acetylcysteine and Metamizole may falselydepress this assay. Reference Range HDL <40 mg/dL Low HDL Cholesterol HDL >or= 60 mg/dL High HDL Cholesterol Performed By: #### L 500.4050, L501.9520, L501.9985, L100.0100, L3400.4800, L500.4100, L506.1000 ####[facility] [address] [place], [address] Cholesterol in LDL [Mass/Vol] -4 mg/dL Low 0-130 [facility] Comment on above: Performed By: #### L 500.4050, L501.9520, L501.9985, L100.0100, L3400.4800, L500.4100, L506.1000 ####[facility] [address] [place], [address] Cholesterol in VLDL [Mass/Vol] 72 mg/dL High 5-40 [facility] Comment on above: Performed By: #### L 500.4050, L501.9520, L501.9985, L100.0100, L3400.4800, L500.4100, L506.1000 ####[facility] [address] [place], [address] Triglyceride [Mass/Vol] 362 mg/dL High [facility] Comment on above: Result Comment: The drugs N-Acetylcysteine and Metamizole may falselydepress this assay.Serum Triglycerides Reference Interval Normal <150 mg/dL Borderline high 150 - 199 mg/dL High 200 - 499 mg/dL Very High > or = 500 mg/dL Performed By: #### L 500.4050, L501.9520, L501.9985, L100.0100, L3400.4800, L500.4100, L506.1000 ####[facility] [address] [place], [address] Low density lipoprotein (LDL ) cholesterol measurementOrdered By: Fredis Moon on 03-07-2024 Cholesterol in LDL [Mass/Vol] -4 mg/dL Low 0-130 [facility] Lymphocytes Auto (Unsp spec) [#/Vol]Ordered By: Fredis Moon on 03-07-2024 Lymphocytes (Bld) [#/Vol] 1.25 10*3/uL 0.83-4.51 [facility] Lymphocytes/100 WBC Auto (Un sp spec)Ordered By: Fredis Moon on 03-07-2024 Lymphocytes/100 WBC (Bld) 17.5 % Low 19-41 [facility] MCV (mean corpuscular volume ) determinationOrdered By: Fredis Moon 03-07-2024 MCV (RBC) [Entitic vol] 86.0 fL 80-94 [facility] Mean corpuscular hemoglobin (MCH) determinationOrdered By: Fredis Moon on 03-07-2024 MCH (RBC) [Entitic mass] 27.5 pg 27.0-32.0 [facility] Mean corpuscular hemoglobin concentration (MCHC) determinationOrdered By: Fredis Moon on 03-07-2024 MCHC (RBC) [Mass/Vol] 32.0 g/dL 32-36 [facility] Mean platelet volume determi nationOrdered By: Fredis Moon on 03-07-2024 Platelet mean volume (Bld) [Entitic vol] 9.2 fL 6.2-12.0 [facility] Monocyte percentageOrdered B y: Fredis Moon on 03-07-2024 Monocytes/100 WBC (Bld) 12.5 % High 0-[address] [facility] Neutrophil percentageOrdered By: Fredis Moon on 03-07-2024 Neutrophils/100 WBC (Bld) 66.8 % 47-70 [facility] Nucleated red blood cell per centageOrdered By: Fredis Moon on 03-07-2024 Nucleated RBC/100 WBC (Bld) [Ratio] 0 % 0-5 [facility] Platelet countOrdered By: Mir Moon on 03-07-2024 Platelets (Bld) [#/Vol] 198 10*3/uL 150-450 [facility] Potassium measurementOrdered By: Fredis Moon on 03-07-2024 Potassium [Moles/Vol] 4.9 mmol/L 3.5-5.1 [facility] RBC Auto (Bld) [#/Vol]Ordere d By: Fredis Moon on 03-07-2024 RBC (Bld) [#/Vol] 4.72 10*6/uL 4.6-6.2 [facility] Serum anion gap measurementO rdered By: Fredis Moon on 03-07-2024 Anion gap [Moles/Vol] 5 mmol/L 5-15 [facility] Serum globulin measurementOr dered By: Fredis Moon 03-07-2024 Globulin (S) [Mass/Vol] 3.6 g/dL 2.2-4.2 [facility] Serum or plasma alanine hector otransferase (ALT) measurementOrdered By: Fredis Moon on 03-07-2024 ALT [Catalytic activity/Vol] 18 U/L 16-61 [facility] Serum or plasma albumin mt urement (mass/volume)Ordered By: Fredis Moon 03-07-2024 Albumin [Mass/Vol] 3.3 g/dL 3.2-5.0 [facility] Serum or plasma alkaline kristyn sphatase measurementOrdered By: Fredis Moon 03-07-2024 ALP [Catalytic activity/Vol] 103 U/L 45-117 [facility] Serum or plasma calcium mt urement (mass/volume)Ordered By: Fredis Moon on 03-07-2024 Calcium [Mass/Vol] 8.8 mg/dL 8.5-10.1 [facility] Serum or plasma cholesterol measurement (mass/volume)Ordered By: Fredis Moon on 03-07-2024 Cholesterol [Mass/Vol] 113 mg/dL <200 [facility] Comment on above: <200 mg/dL Desirable 200-240 mg/dL Borderline >240 mg/dL High Risk Serum or plasma creatinine m easurement (mass/volume)Ordered By: Fredis Moon on 03-07-2024 Creatinine [Mass/Vol] 1.00 mg/dL 0.70-1.30 [facility] Comment on above: The validity of the calculated GFR & GFRAA in patients over 70 years has not been determined. Clinical correlation is essential. Serum or plasma urea nitroge n measurement (mass/volume)Ordered By: Fredis Moon on 03-07-2024 Urea nitrogen [Mass/Vol] 25 mg/dL High 7-18 [facility] Sodium levelOrdered By: Fredis Moon on 03-07-2024 Sodium [Moles/Vol] 142 mmol/L 136-145 [facility] TSH QnOrdered By: Fredis Moon o n 03-07-2024 Thyroid Stimulating Hormone (TSH) 3.430 uIU/mL 0.358-3.740 [facility] Testosterone Free [Mass/Vol] Ordered By: Fredis Moon on 03-07-2024 Free Testosterone 1.1 pg/mL Low 6.6-18.1 [facility] Comment on above: Performed at: [address] [id number] Director: Lucas oSrto MD, Phone: [phone] Thyroid Stim Hormone (TSH)on 03-07-2024 TSH 3.430 uIU/mL Normal 0.358-3.740 [facility] Comment on above: Performed By: #### L 500.4050, L501.9520, L501.9985, L100.0100, L3400.4800, L500.4100, L506.1000 ####[facility] [address] [place], [address] Total proteinOrdered By: Fredis Moon on 03-07-2024 Protein [Mass/Vol] 6.9 g/dL 6.4-8.2 [facility] Triglycerides measurementOrd ered By: Fredis Moon on 03-07-2024 Triglyceride [Mass/Vol] 362 mg/dL High <[address] [facility] Comment on above: The drugs N-Acetylcy steine and Metamizole may falsely depress this assay.Serum Triglycerides Reference Interval Normal <150 mg/dL Borderline high 150 - 199 mg/dL High 200 - 499 mg/dL Very High > or = 500 mg/dL Very low density lipoprotein (VLDL) cholesterol measurementOrdered By: Fredis Moon on 03-07-2024 VLDL Cholesterol 72 mg/dL High 5-40 [facility] Vitamin D,25 Hydroxyon 03-07 Vitamin D 25-OH 40.2 ng/mL Normal [facility] Comment on above: Order Comment: ADD O N BOTH RED AND SST IN LAB Result Comment: Katie min D 25(OH) Status Range Deficiency <20 ng/mL (50nmol/L) Insufficiency 20 - 30 ng/mL (50 - 75 nmol/L) Sufficiency 30 - 100 ng/mL (75 - 250 nmol/L) Toxicity >100 ng/mL (>250 nmol/L) Performed By: #### L 500.4050, L501.9520, L501.9985, L100.0100, L3400.4800, L500.4100, L506.1000 ####[facility] [address] [place], [place], [address] White blood cell (WBC) count Ordered By: Fredis Moon on 03-07-2024 WBC (Bld) [#/Vol] 7.1 10*3/uL 4.4-11.0 [facility] PSA,Total- Diagnosticon 11-2 PSA, DIAGNOSTIC < 0.01 Normal 0.0-4.0 [facility] Comment on above: Result Comment: This test was performed using the TPSA assay method for the[employer]Klax Media[employer]vestigo chemistry system. Values obtained with differentassay methods cannot be used interchangably.When changing PSA assays in the course of monitoring apatient, additional sequential testing should be carriedout to confirm baseline values. Performed By: #### L 501.9940 ####[facility] [address] [place], [place], [address] L3300.0940on 12-17-2023 VIT D,25 HYDROX 43.4 ng/mL Normal 30.0-100.0 [facility] Comment on above: Order Comment: N Result Comment: Katie min D deficiency has been defined by the [place] ofMedicine and an Endocrine Society practice guideline as alevel of serum 25-OH vitamin D less than 20 ng/mL (1,2).The Endocrine Society went on to further define vitamin Dinsufficiency as a level between 21 and 29 ng/mL (2).1. IOM ([place] of Medicine). 2010. Dietary reference intakes for calcium and D. [place]: The National Academies Press.2. [place] MF, Miguel BARNES, Greg ALCOCER, et al. Evaluation, treatment, and prevention of vitamin D deficiency: an Endocrine Society clinical practice guideline. JCEM. 2010; 96(7):1911-30.Performed at: - [facility] [id number] Director: Scott Marvin PhD, Phone: [phone] at: [facility] [id number] Director: Lucas Sorto MD, Phone: [phone] Performed By: #### L 3300.0940, L500.4050, L3100.5320, L501.9520, L100.0100, L500.4100, L501.9985 ####[facility] [address] [place], [address] Testosterone, Totalon 2023 TESTOSTER,TOTAL 41 ng/dL Low 264-506 [facility] Comment on above: Order Comment: N Result Comment: Adul t male reference interval is based on a population ofhealthy nonobese males (BMI <30) between 19 and 39 yearsold. osiel Tinoco.al. JCEM 2017,102;0553-2408. PMID:[id number]. Performed By: #### L 3300.0940, L500.4050, L3100.5320, L501.9520, L100.0100, L500.4100, L501.9985 ####[facility] [address] [place], [address] Ext Non Vasc Limited/Soft Ti sson 12-12-2023 Ext Non Vasc Limited/Soft Tiss Normal [facility] CBC W/Diff, Automatedon - Absolute Lymph 1.26 X10 3/uL Normal 0.83-4.51 [facility] Comment on above: Performed By: #### L 3300.0940, L500.4050, L3100.5320, L501.9520, L100.0100, L500.4100, L501.9985 ####[facility] [address] [place], [address] Absolute Neut 4.1 X10 3/uL Normal 2.0-7.7 [facility] Comment on above: Performed By: #### L 3300.0940, L500.4050, L3100.5320, L501.9520, L100.0100, L500.4100, L501.9985 ####[facility] [address] [place], [address] Basophils/100 WBC (Bld) 0.8 % Normal 0-[address] [facility] Comment on above: Performed By: #### L 3300.0940, L500.4050, L3100.5320, L501.9520, L100.0100, L500.4100, L501.9985 ####[facility] [address] [place], [address] Eosinophils/100 WBC (Bld) 1.6 % Normal 0-5 [facility] Comment on above: Performed By: #### L 3300.0940, L500.4050, L3100.5320, L501.9520, L100.0100, L500.4100, L501.9985 ####[facility] [address] [place], [address] Erythrocyte distribution width (RBC) [Ratio] 14.5 % Normal 11.6-14.6 [facility] Comment on above: Performed By: #### L 3300.0940, L500.4050, L3100.5320, L501.9520, L100.0100, L500.4100, L501.9985 ####[facility] [address] [place], [address] Hematocrit (Bld) [Volume fraction] 41.2 % Normal 40-54 [facility] Comment on above: Performed By: #### L 3300.0940, L500.4050, L3100.5320, L501.9520, L100.0100, L500.4100, L501.9985 ####[facility] [address] [place], [address] Hemoglobin (Bld) [Mass/Vol] 13.1 g/dL Normal 13.0-16.5 [facility] Comment on above: Performed By: #### L 3300.0940, L500.4050, L3100.5320, L501.9520, L100.0100, L500.4100, L501.9985 ####[facility] [address] [place], [address] IG% 1.600 High 0.0-0.9 [facility] Comment on above: Result Comment: IG% - Immature Granulocytes (promyelocytes, myelocytes andmetamyelocytes) > 1% indicates that a LEFT SHIFT is Present. Performed By: #### L 3300.0940, L500.4050, L3100.5320, L501.9520, L100.0100, L500.4100, L501.9985 ####[facility] [address] [place], [address] Lymphocytes/100 WBC (Bld) 19.6 % Normal 19-41 [facility] Comment on above: Performed By: #### L 3300.0940, L500.4050, L3100.5320, L501.9520, L100.0100, L500.4100, L501.9985 ####[facility] [address] [place], [address] MCH (RBC) [Entitic mass] 27.5 pg Normal 27.0-32.0 [facility] Comment on above: Performed By: #### L 3300.0940, L500.4050, L3100.5320, L501.9520, L100.0100, L500.4100, L501.9985 ####[facility] [address] [place], [address] MCHC (RBC) [Mass/Vol] 31.8 g/dL Low 32-36 [facility] Comment on above: Performed By: #### L 3300.0940, L500.4050, L3100.5320, L501.9520, L100.0100, L500.4100, L501.9985 ####[facility] [address] [place], [address] MCV (RBC) [Entitic vol] 86.4 fL Normal 80-[address] [facility] Comment on above: Performed By: #### L 3300.0940, L500.4050, L3100.5320, L501.9520, L100.0100, L500.4100, L501.9985 ####[facility] [address] [place], [address] Monocytes/100 WBC (Bld) 12.1 % High 0-[address] [facility] Comment on above: Performed By: #### L 3300.0940, L500.4050, L3100.5320, L501.9520, L100.0100, L500.4100, L501.9985 ####[facility] [address] [place], [address] Neutrophils/100 WBC (Bld) 64.3 % Normal 47-70 [facility] Comment on above: Performed By: #### L 3300.0940, L500.4050, L3100.5320, L501.9520, L100.0100, L500.4100, L501.9985 ####[facility] [address] [place], [address] Nucleated RBC (Bld) [#/Vol] 0 10*3/uL Normal 0-5 [facility] Comment on above: Performed By: #### L 3300.0940, L500.4050, L3100.5320, L501.9520, L100.0100, L500.4100, L501.9985 ####[facility] [address] [place], [address] Platelet mean volume (Bld) [Entitic vol] 9.9 fL Normal 6.2-12.0 [facility] Comment on above: Performed By: #### L 3300.0940, L500.4050, L3100.5320, L501.9520, L100.0100, L500.4100, L501.9985 ####[facility] [address] [place], [address] Platelets (Bld) [#/Vol] 210 10*3/uL Normal 150-450 [facility] Comment on above: Performed By: #### L 3300.0940, L500.4050, L3100.5320, L501.9520, L100.0100, L500.4100, L501.9985 ####[facility] [address] [place], [address] RBC (Bld) [#/Vol] 4.77 10*6/uL Normal 4.6-6.2 [facility] Comment on above: Performed By: #### L 3300.0940, L500.4050, L3100.5320, L501.9520, L100.0100, L500.4100, L501.9985 ####[facility] [address] [place], [address] RDW SD 45.6 fl High 35.1-43.9 [facility] Comment on above: Performed By: #### L 3300.0940, L500.4050, L3100.5320, L501.9520, L100.0100, L500.4100, L501.9985 ####[facility] [address] [place], [address] WBC (Bld) [#/Vol] 6.4 10*3/uL Normal 4.4-11.0 [facility] Comment on above: Performed By: #### L 3300.0940, L500.4050, L3100.5320, L501.9520, L100.0100, L500.4100, L501.9985 ####[facility] [address] [place], [address] Comprehensive Metabolic Prof [facility] 12-07-2023 Albumin [Mass/Vol] 3.3 g/dL Normal 3.2-5.0 [facility] Comment on above: Performed By: #### L 3300.0940, L500.4050, L3100.5320, L501.9520, L100.0100, L500.4100, L501.9985 ####[facility] [address] [place], [address] Albumin/Globulin [Mass ratio] 1.0 {ratio} Normal 0.9-2.4 [facility] Comment on above: Performed By: #### L 3300.0940, L500.4050, L3100.5320, L501.9520, L100.0100, L500.4100, L501.9985 ####[facility] [address] [place], [address] ALK P 101 U/L Normal 45-117 [facility] Comment on above: Performed By: #### L 3300.0940, L500.4050, L3100.5320, L501.9520, L100.0100, L500.4100, L501.9985 ####[facility] [address] [place], [address] ALT [Catalytic activity/Vol] 9 U/L Low 16-61 [facility] Comment on above: Performed By: #### L 3300.0940, L500.4050, L3100.5320, L501.9520, L100.0100, L500.4100, L501.9985 ####[facility] [address] [place], [address] AST [Catalytic activity/Vol] 13 U/L Low 15-37 [facility] Comment on above: Performed By: #### L 3300.0940, L500.4050, L3100.5320, L501.9520, L100.0100, L500.4100, L501.9985 ####[facility] [address] [place], [address] Bilirubin [Mass/Vol] 0.50 mg/dL Normal 0.20-1.00 [facility] Comment on above: Result Comment: For patients on eltrombopag therapy, use of Dimension [place] TBIL is not recommended. Performed By: #### L 3300.0940, L500.4050, L3100.5320, L501.9520, L100.0100, L500.4100, L501.9985 ####[facility] [address] [place], [address] BUN/CRE 22.5 RATIO High 10-20 [facility] Comment on above: Performed By: #### L 3300.0940, L500.4050, L3100.5320, L501.9520, L100.0100, L500.4100, L501.9985 ####[facility] [address] [place], [address] CA,Total 9.1 mg/dL Normal 8.5-10.1 [facility] Comment on above: Performed By: #### L 3300.0940, L500.4050, L3100.5320, L501.9520, L100.0100, L500.4100, L501.9985 ####[facility] [address] [place], [address] Chloride [Moles/Vol] 104 mmol/L Normal 98-107 [facility] Comment on above: Performed By: #### L 3300.0940, L500.4050, L3100.5320, L501.9520, L100.0100, L500.4100, L501.9985 ####[facility] [address] [place], [address] CO2 [Moles/Vol] 24.0 mmol/L Normal 21.0-32.0 [facility] Comment on above: Performed By: #### L 3300.0940, L500.4050, L3100.5320, L501.9520, L100.0100, L500.4100, L501.9985 ####[facility] [address] [place], [address] Creatinine [Mass/Vol] 1.02 mg/dL Normal 0.70-1.30 [facility] Comment on above: Result Comment: The validity of the calculated GFR GFRAA in patients over70 years has not been determined. Clinical correlation isessential. Performed By: #### L 3300.0940, L500.4050, L3100.5320, L501.9520, L100.0100, L500.4100, L501.9985 ####[facility] [address] [place], [address] EST GFR - AA 90 mL/min Normal >60 [facility] Comment on above: Result Comment: Afri can [place] GFR Calc Performed By: #### L 3300.0940, L500.4050, L3100.5320, L501.9520, L100.0100, L500.4100, L501.9985 ####[facility] [address] [place], [address] GAP 9 Normal 5-15 [facility] Comment on above: Performed By: #### L 3300.0940, L500.4050, L3100.5320, L501.9520, L100.0100, L500.4100, L501.9985 ####[facility] [address] [place], [address] GFR/1.73 sq M.predicted among non-blacks MDRD (S/P/Bld) [Vol rate/Area] 74 mL/min/{1.73_m2} Normal >60 [facility] Comment on above: Result Comment: Non- GFR Calc Performed By: #### L 3300.0940, L500.4050, L3100.5320, L501.9520, L100.0100, L500.4100, L501.9985 ####[facility] [address] [place], [address] Globulin (S) [Mass/Vol] 3.4 g/dL Normal 2.2-4.[address] [facility] Comment on above: Performed By: #### L 3300.0940, L500.4050, L3100.5320, L501.9520, L100.0100, L500.4100, L501.9985 ####[facility] [address] [place], [address] Glucose [Mass/Vol] 210 mg/dL High 74-106 [facility] Comment on above: Result Comment: Gluc ose result greater than or equal to 200 mg/dLsuggests DIABETES MELLITUS per A.D.A. criteria. Performed By: #### L 3300.0940, L500.4050, L3100.5320, L501.9520, L100.0100, L500.4100, L501.9985 ####[facility] [address] [place], [address] Potassium [Moles/Vol] 4.5 mmol/L Normal 3.5-5.1 [facility] Comment on above: Performed By: #### L 3300.0940, L500.4050, L3100.5320, L501.9520, L100.0100, L500.4100, L501.9985 ####[facility] [address] [place], [address] Sodium [Moles/Vol] 137 mmol/L Normal 136-145 [facility] Comment on above: Performed By: #### L 3300.0940, L500.4050, L3100.5320, L501.9520, L100.0100, L500.4100, L501.9985 ####[facility] [address] [place], [address] T PROT 6.7 g/dL Normal 6.4-8.2 [facility] Comment on above: Performed By: #### L 3300.0940, L500.4050, L3100.5320, L501.9520, L100.0100, L500.4100, L501.9985 ####[facility] [address] [place], [address] Urea nitrogen [Mass/Vol] 23 mg/dL High 7-18 [facility] Comment on above: Performed By: #### L 3300.0940, L500.4050, L3100.5320, L501.9520, L100.0100, L500.4100, L501.9985 ####[facility] [address] [place], [address] Hemoglobin A1con 12-07-2023 HbA1c (Bld) [Mass fraction] 7.0 % High 3.8-5.6 [facility] Comment on above: Result Comment: Norm al < 5.7 % Prediabetic 5.7 - 6.4 % Diabetic >or= 6.5 % Please note range changes. Performed By: #### L 3300.0940, L500.4050, L3100.5320, L501.9520, L100.0100, L500.4100, L501.9985 ####[facility] [address] [place], [address] Lipid Profileon 12-07-2023 Cholesterol [Mass/Vol] 115 mg/dL Normal 200 [facility] Comment on above: Result Comment: <200 mg/dL Desirable 200-240 mg/dL Borderline >240 mg/dL High Risk Performed By: #### L 3300.0940, L500.4050, L3100.5320, L501.9520, L100.0100, L500.4100, L501.9985 ####[facility] [address] [place], [address] Cholesterol in HDL [Mass/Vol] 47 mg/dL Normal [facility] Comment on above: Result Comment: The drugs N-Acetylcysteine and Metamizole may falselydepress this assay. Reference Range HDL <40 mg/dL Low HDL Cholesterol HDL >or= 60 mg/dL High HDL Cholesterol Performed By: #### L 3300.0940, L500.4050, L3100.5320, L501.9520, L100.0100, L500.4100, L501.9985 ####[facility] [address] [place], [address] Cholesterol in LDL [Mass/Vol] 23 mg/dL Normal 0-130 [facility] Comment on above: Performed By: #### L 3300.0940, L500.4050, L3100.5320, L501.9520, L100.0100, L500.4100, L501.9985 ####[facility] [address] [place], [place], [id number] Cholesterol in VLDL [Mass/Vol] 45 mg/dL High 5-40 [facility] Comment on above: Performed By: #### L 3300.0940, L500.4050, L3100.5320, L501.9520, L100.0100, L500.4100, L501.9985 ####[facility] [address] [facility] [place], [address] Triglyceride [Mass/Vol] 227 mg/dL High [facility] Comment on above: Result Comment: The drugs N-Acetylcysteine and Metamizole may falselydepress this assay.Serum Triglycerides Reference Interval Normal <150 mg/dL Borderline high 150 - 199 mg/dL High 200 - 499 mg/dL Very High > or = 500 mg/dL Performed By: #### L 3300.0940, L500.4050, L3100.5320, L501.9520, L100.0100, L500.4100, L501.9985 ####[facility] [address] [place], [address] Thyroid Stim Hormone (TSH)on 12-07-2023 TSH 2.810 uIU/mL Normal 0.358-3.740 [facility] Comment on above: Performed By: #### L 3300.0940, L500.4050, L3100.5320, L501.9520, L100.0100, L500.4100, L501.9985 ####[facility] [address] [facility] [place], [place], [id number] Absolute lymphocyte countOrd ered By: Fredis Moon on 06-01-2023 Lymphocytes Auto (Unsp spec) [#/Vol] 1.29 10*3/uL 0.83-4.51 [facility] Automated lymphocyte count a s percentage of total leukocytesOrdered By: Fredis Moon on 06-01-2023 Lymphocytes/100 WBC Auto (Unsp spec) 17.4 % 19-41 [facility] Basophil percentageOrdered B y: Fredis Moon on 06-01-2023 Basophils/100 WBC (Bld) 0.8 % 0-[address] [facility] Bilirubin [Mass/Vol] 0.50 mg/dL 0.20-1.00 [facility] Comment on above: For patients on eltr ombopag therapy, use of Dimension [place] TBIL is not recommended. Chloride [Moles/Vol] 108 mmol/L 98-107 [facility] Cholesterol [Mass/Vol] 112 mg/dL <200 [facility] Comment on above: <200 mg/dL Desirable 200-240 mg/dL Borderline >240 mg/dL High Risk Eosinophils/100 WBC (Bld) 1.3 % 0-5 [facility] Glucose [Mass/Vol] 121 mg/dL 74-106 [facility] Comment on above: Fasting Glucose resu lt from 100 to 125 mg/dL suggests IMPAIRED HOMEOSTASIS per A.D.A. criteria. Hemoglobin (Bld) [Mass/Vol] 13.4 g/dL 13.0-16.5 [facility] Monocytes/100 WBC (Bld) 12.7 % 0-[address] [facility] Neutrophils (Bld) [#/Vol] 5.0 10*3/uL 2.0-7.7 [facility] Neutrophils/100 WBC (Bld) 67.0 % 47-70 [facility] Potassium [Moles/Vol] 4.4 mmol/L 3.5-5.1 [facility] Protein [Mass/Vol] 6.8 g/dL 6.4-8.2 [facility] Sodium [Moles/Vol] 140 mmol/L 136-145 [facility] Testosterone [Mass/Vol] 34.50 ng/dL [facility] Comment on above: CENTRAL 90% REFERENC E RANGES MALE AGE <50 197.44 - 669.58 ng/dL MALE AGE > or = 50 187.72 - 684.19 ng/dL FEMALE AGE <50 8.38 - 35.01 ng/dL FEMALE AGE > or = 50 <7.00 - 35.92 ng/dL Effective as of 09/17/20 Triglyceride [Mass/Vol] 322 mg/dL <[address] [facility] Comment on above: The drugs N-Acetylcy steine and Metamizole may falsely depress this assay.Serum Triglycerides Reference Interval Normal <150 mg/dL Borderline high 150 - 199 mg/dL High 200 - 499 mg/dL Very High > or = 500 mg/dL WBC (Bld) [#/Vol] 7.4 10*3/uL 4.4-11.0 [facility] Determination of erythrocyte mean corpuscular volume (MCV)Ordered By: Fredis Red on 06-01-2023 MCV (RBC) [Entitic vol] 85.9 fL 80-[address] [facility] Erythrocyte distribution wid th ratioOrdered By: [facility] on 06-01-2023 Erythrocyte distribution width (RBC) [Ratio] 14.3 % 11.6-14.6 [facility] Erythrocyte distribution wid th standard deviationOrdered By: [facility] on 06-01-2023 Erythrocyte distribution width (RBC) [Entitic vol] 44.3 fL 35.1-43.9 [facility] Hematocrit Auto (Bld) [Volum e fraction]Ordered By: [facility] on 06-01-2023 Hematocrit (Bld) [Volume fraction] 41.4 % 40-54 [facility] Immature granulocytes/100 WB C Auto (Bld)Ordered By: [facility] 06-01-2023 Immature granulocytes/100 WBC (Bld) 0.800 % 0.0-0.9 [facility] Comment on above: IG% - Immature Granu locytes (promyelocytes, myelocytes and metamyelocytes) > 1% indicates that a LEFT SHIFT is Present. Laboratory - Chemistry and C hemistry - challengeOrdered By: [facility] on 06-01-2023 Albumin/Globulin [Mass ratio] 1.0 {ratio} 0.9-2.4 [facility] ALP [Catalytic activity/Vol] 88 U/L 45-117 [facility] ALT [Catalytic activity/Vol] 18 U/L 16-61 [facility] Cholesterol in HDL [Mass/Vol] 45 mg/dL >40 [facility] Comment on above: The drugs N-Acetylcy steine and Metamizole may falsely depress this assay. Reference Range HDL <40 mg/dL Low HDL Cholesterol HDL >or= 60 mg/dL High HDL Cholesterol Cholesterol in LDL [Mass/Vol] 3 mg/dL 0-130 [facility] CO2 [Moles/Vol] 24.0 mmol/L 21.0-32.0 [facility] Globulin (S) [Mass/Vol] 3.4 g/dL 2.2-4.[address] [facility] Urea nitrogen/Creatinine [Mass ratio] 24.8 mg/mg 10-20 [facility] Laboratory - Hematology and Cell countsOrdered By: Fredis Moon on 06-01-2023 MCH (RBC) [Entitic mass] 27.8 pg 27.0-32.0 [facility] MCHC (RBC) [Mass/Vol] 32.4 g/dL 32-36 [facility] Nucleated RBC/100 WBC (Bld) [Ratio] 0 % 0-5 [facility] Platelet mean volume (Bld) [Entitic vol] 9.3 fL 6.2-12.0 [facility] Platelets (Bld) [#/Vol] 223 10*3/uL 150-450 [facility] No Panel InformationOrdered By: Fredis Moon on 06-01-2023 Estimated GFR (MDRD) Amer 84 mL/min >60 [facility] Comment on above: GFR Calc Estimated GFR (MDRD) Non-Af Amer 69 mL/min >60 [facility] Comment on above: Non- GFR Calc Vitamin D 25-Hydroxy 71.7 ng/mL [facility] Comment on above: Vitamin D 25(OH) Sta tus Range Deficiency <20 ng/mL (50nmol/L) Insufficiency 20 - 30 ng/mL (50 - 75 nmol/L) Sufficiency 30 - 100 ng/mL (75 - 250 nmol/L) Toxicity >100 ng/mL (>250 nmol/L) VLDL Cholesterol 64 mg/dL 5-40 [facility] RBC Auto (Bld) [#/Vol]Ordere d By: Fredis Moon on 06-01-2023 RBC (Bld) [#/Vol] 4.82 10*6/uL 4.6-6.2 [facility] Serum or plasma calcium mt urement (mass/volume)Ordered By: Fredis Moon on 06-01-2023 Calcium [Mass/Vol] 9.0 mg/dL 8.5-10.1 [facility] Serum or plasma creatinine m easurement (mass/volume)Ordered By: Fredis Moon on 06-01-2023 Creatinine [Mass/Vol] 1.09 mg/dL 0.70-1.30 [facility] Comment on above: The validity of the calculated GFR & GFRAA in patients over 70 years has not been determined. Clinical correlation is essential. Serum or plasma thyroid stim ulating hormone (TSH) measurement (units/volume)Ordered By: Fredis Moon on 06-01-2023 TSH Qn 2.51 uIU/mL 0.358-3.74 [facility] Serum or plasma urea nitroge n measurement (mass/volume)Ordered By: Fredis Moon on 06-01-2023 Urea nitrogen [Mass/Vol] 27 mg/dL 7-18 [facility] Thin prep Papanicolaou smear with manual screeningOrdered By: Fredis Moon on 06-01-2023 Thin prep Papanicolaou smear with manual screening 3.4 g/dL 3.2-5.0 [facility] Thin prep Papanicolaou smear with manual screening 15 U/L 15-37 [facility] Thin prep Papanicolaou smear with manual screening 8 5-15 [facility] Whole blood hemoglobin A1c/t otal hemoglobin ratio (mass fraction)Ordered By: Fredis Moon on 06-01-2023 HbA1c (Bld) [Mass fraction] 7.6 % 3.8-5.6 [facility] Comment on above: Normal < 5.7 % Predi abetic 5.7 - 6.4 % Diabetic >or= 6.5 % Please note range changes. Basophil percentageOrdered B y: Mi Hernandez on 04-05-2023 Chloride [Moles/Vol] 107 mmol/L 98-107 [facility] Glucose [Mass/Vol] 200 mg/dL 74-106 [facility] Comment on above: Glucose result great er than or equal to 200 mg/dLsuggests DIABETES MELLITUS per A.D.A. criteria. Potassium [Moles/Vol] 4.4 mmol/L 3.5-5.1 [facility] Sodium [Moles/Vol] 142 mmol/L 136-145 [facility] Laboratory - Chemistry and C hemistry - challengeOrdered By: Mi Hernandez on 04-05-2023 CO2 [Moles/Vol] 26.0 mmol/L 21.0-32.0 [facility] Natriuretic peptide B (Bld) [Mass/Vol] 14.8 pg/mL 0-100 [facility] Urea nitrogen/Creatinine [Mass ratio] 24.1 mg/mg 10-20 [facility] No Panel InformationOrdered By: Mi Hernandez on 04-05-2023 Estimated GFR (MDRD) Amer 81 mL/min >60 [facility] Comment on above: GFR Calc Estimated GFR (MDRD) Non-Af Amer 67 mL/min >60 [facility] Comment on above: Non- GFR Calc Serum or plasma calcium mt urement (mass/volume)Ordered By: Mi Hernandez on 04-05-2023 Calcium [Mass/Vol] 9.3 mg/dL 8.5-10.1 [facility] Serum or plasma creatinine m easurement (mass/volume)Ordered By: Mi Hernandez on 04-05-2023 Creatinine [Mass/Vol] 1.12 mg/dL 0.70-1.30 [facility] Comment on above: The validity of the calculated GFR & GFRAA in patients over 70 years has not been determined. Clinical correlation is essential. Serum or plasma urea nitroge n measurement (mass/volume)Ordered By: Mi Hernandez on 04-05-2023 Urea nitrogen [Mass/Vol] 27 mg/dL 7-18 [facility] Thin prep Papanicolaou smear with manual screeningOrdered By: Mi Hernandez on 04-05-2023 Thin prep Papanicolaou smear with manual screening 9 5-15 [facility] Absolute lymphocyte countOrd ered By: Fredis Moon on 03-02-2023 Lymphocytes Auto (Unsp spec) [#/Vol] 1.26 10*3/uL 0.83-4.51 [facility] Basophil percentageOrdered B y: Fredis Moon on 03-02-2023 Basophils/100 WBC (Bld) 0.9 % 0-[address] [facility] Bilirubin [Mass/Vol] 0.60 mg/dL 0.20-1.00 [facility] Comment on above: For patients on eltr ombopag therapy, use of Dimension [place] TBIL is not recommended. Chloride [Moles/Vol] 106 mmol/L 98-107 [facility] Cholesterol [Mass/Vol] 119 mg/dL <200 [facility] Comment on above: <200 mg/dL Desirable 200-240 mg/dL Borderline >240 mg/dL High Risk Eosinophils/100 WBC (Bld) 2.9 % 0-5 [facility] Glucose [Mass/Vol] 129 mg/dL 74-106 [facility] Comment on above: Fasting Glucose resu lt greater than or equal to 126 mg/dL suggests DIABETES MELLITUS per A.D.A. criteria. Neutrophils (Bld) [#/Vol] 4.1 10*3/uL 2.0-7.7 [facility] Neutrophils/100 WBC (Bld) 63.1 % 47-70 [facility] Potassium [Moles/Vol] 4.5 mmol/L 3.5-5.1 [facility] Protein [Mass/Vol] 6.8 g/dL 6.4-8.2 [facility] Sodium [Moles/Vol] 139 mmol/L 136-145 [facility] Testosterone [Mass/Vol] 35.01 ng/dL [facility] Comment on above: CENTRAL 90% REFERENC E RANGES MALE AGE <50 197.44 - 669.58 ng/dL MALE AGE > or = 50 187.72 - 684.19 ng/dL FEMALE AGE <50 8.38 - 35.01 ng/dL FEMALE AGE > or = 50 <7.00 - 35.92 ng/dL Effective as of 09/17/20 Triglyceride [Mass/Vol] 337 mg/dL <[address] [facility] Comment on above: The drugs N-Acetylcy steine and Metamizole may falsely depress this assay.Serum Triglycerides Reference Interval Normal <150 mg/dL Borderline high 150 - 199 mg/dL High 200 - 499 mg/dL Very High > or = 500 mg/dL WBC (Bld) [#/Vol] 6.5 10*3/uL 4.4-11.0 [facility] Blood erythrocytes count (nu mber/volume)Ordered By: Fredis Moon on 03-02-2023 RBC (Bld) [#/Vol] 4.80 10*6/uL 4.6-6.2 [facility] Blood hemoglobin measurement (mass/volume)Ordered By: Fredis Moon on 03-02-2023 Hemoglobin (Bld) [Mass/Vol] 13.3 g/dL 13.0-16.5 [facility] Blood lymphocytes/100 leukoc ytesOrdered By: Fredis Moon on 03-02-2023 Lymphocytes/100 WBC (Bld) 19.5 % 19-41 [facility] Blood monocytes/100 leukocyt esOrdered By: Fredis Moon on 03-02-2023 Monocytes/100 WBC (Bld) 12.5 % 0-[address] [facility] Blood platelet mean volumeOr dered By: Fredis Moon on 03-02-2023 Platelet mean volume (Bld) [Entitic vol] 9.3 fL 6.2-12.0 [facility] Determination of erythrocyte mean corpuscular volume (MCV)Ordered By: Fredis Moon on 03-02-2023 MCV (RBC) [Entitic vol] 86.0 fL 80-[address] [facility] Hematocrit Auto (Bld) [Volum e fraction]Ordered By: Fredis Moon on 03-02-2023 Hematocrit (Bld) [Volume fraction] 41.3 % 40-54 [facility] Laboratory - Chemistry and C hemistry - challengeOrdered By: [facility]2023 ALP [Catalytic activity/Vol] 99 U/L 45-117 [facility] ALT [Catalytic activity/Vol] 10 U/L 16-61 [facility] CO2 [Moles/Vol] 26.0 mmol/L 21.0-32.0 [facility] Globulin (S) [Mass/Vol] 3.4 g/dL 2.2-4.[address] [facility] Urea nitrogen/Creatinine [Mass ratio] 23.4 mg/mg 10-20 [facility] Laboratory - Hematology and Cell countsOrdered By: Fredis Moon on 03-02-2023 Erythrocyte distribution width (RBC) [Entitic vol] 44.8 fL 35.1-43.9 [facility] Erythrocyte distribution width (RBC) [Ratio] 14.3 % 11.6-14.6 [facility] Immature granulocytes/100 WBC (Bld) 1.100 % 0.0-0.9 [facility] Comment on above: IG% - Immature Granu locytes (promyelocytes, myelocytes and metamyelocytes) > 1% indicates that a LEFT SHIFT is Present. MCH (RBC) [Entitic mass] 27.7 pg 27.0-32.0 [facility] Nucleated RBC/100 WBC (Bld) [Ratio] 0 % 0-5 [facility] MCHC Auto (RBC) [Mass/Vol]Or dered By: Fredis Moon on 03-02-2023 MCHC (RBC) [Mass/Vol] 32.2 g/dL 32-36 [facility] No Panel InformationOrdered By: Fredis Moon on 03-02-2023 Estimated GFR (MDRD) Amer 85 mL/min >60 [facility] Comment on above: GFR Calc Estimated GFR (MDRD) Non-Af Amer 71 mL/min >60 [facility] Comment on above: Non- GFR Calc Thyroid Stimulating Hormone (TSH) 2.27 uIU/mL 0.358-3.74 [facility] Vitamin D 25-Hydroxy 55.0 ng/mL [facility] Comment on above: Vitamin D 25(OH) Sta tus Range Deficiency <20 ng/mL (50nmol/L) Insufficiency 20 - 30 ng/mL (50 - 75 nmol/L) Sufficiency 30 - 100 ng/mL (75 - 250 nmol/L) Toxicity >100 ng/mL (>250 nmol/L) Platelets bldOrdered By: Fredis Moon on 03-02-2023 Platelets (Bld) [#/Vol] 206 10*3/uL 150-450 [facility] Serum or plasma albumin mt urement (mass/volume)Ordered By: Fredis Moon on 03-02-2023 Albumin [Mass/Vol] 3.4 g/dL 3.2-5.0 [facility] Serum or plasma albumin/glob ulin mass ratioOrdered By: Fredis Moon on 03-02-2023 Albumin/Globulin [Mass ratio] 1.0 {ratio} 0.9-2.4 [facility] Serum or plasma calcium mt urement (mass/volume)Ordered By: Fredis Moon on 03-02-2023 Calcium [Mass/Vol] 8.7 mg/dL 8.5-10.1 [facility] Serum or plasma cholesterol in HDL measurement (mass/volume)Ordered By: Fredis Moon on 03-02-2023 Cholesterol in HDL [Mass/Vol] 40 mg/dL >40 [facility] Comment on above: The drugs N-Acetylcy steine and Metamizole may falsely depress this assay. Reference Range HDL <40 mg/dL Low HDL Cholesterol HDL >or= 60 mg/dL High HDL Cholesterol Serum or plasma cholesterol in VLDL measurement (mass/volume)Ordered By: Fredis Moon on 03-02-2023 Cholesterol in VLDL [Mass/Vol] 67 mg/dL 5-40 [facility] Serum or plasma creatinine m easurement (mass/volume)Ordered By: Fredis Moon on 03-02-2023 Creatinine [Mass/Vol] 1.07 mg/dL 0.70-1.30 [facility] Comment on above: The validity of the calculated GFR & GFRAA in patients over 70 years has not been determined. Clinical correlation is essential. Serum or plasma low density lipoprotein (LDL) cholesterol measurement (mass/volume)Ordered By: Fredis Moon on 03-02-2023 Cholesterol in LDL [Mass/Vol] 12 mg/dL 0-130 [facility] Serum or plasma urea nitroge n measurement (mass/volume)Ordered By: Fredis Moon on 03-02-2023 Urea nitrogen [Mass/Vol] 25 mg/dL 7-18 [facility] Thin prep Papanicolaou smear with manual screeningOrdered By: Fredis Moon on 03-02-2023 Thin prep Papanicolaou smear with manual screening 18 U/L 15-37 [facility] Thin prep Papanicolaou smear with manual screening 7 5-15 [facility] Whole blood hemoglobin A1c/t otal hemoglobin ratio (mass fraction)Ordered By: Fredis Moon on 03-02-2023 HbA1c (Bld) [Mass fraction] 7.5 % 3.8-5.6 [facility] Comment on above: Normal < 5.7 % Predi abetic 5.7 - 6.4 % Diabetic >or= 6.5 % Please note range changes. No Panel InformationOrdered By: Yovanny Dempsey on 01-15-2023 Prostate Specific Antigen Total < 0.01 ng/mL 0.0-4.0 [facility] Comment on above: This test was perfor med using the TPSA assay method for the[employer] chemistry system. Values obtained with differentassay methods cannot be used interchangably.When changing PSA assays in the course of monitoring apatient, additional sequential testing should be carriedout to confirm baseline values. Glucose Glucometer (BldC) [M ass/Vol]Ordered By: Pamela Cramer on 12-30-2022 Glucose [Mass/Vol] 170 mg/dL 74-106 [facility] Comment on above: MANAGEMENT OF PATIEN T CARE PER NURSING PROTOCOL Absolute lymphocyte countOrd ered By: Fredis Moon on 11-30-2022 Lymphocytes Auto (Unsp spec) [#/Vol] 1.40 10*3/uL 0.83-4.51 [facility] Basophil percentageOrdered B y: Fredis Moon on 11-30-2022 Basophils/100 WBC (Bld) 0.7 % 0-[address] [facility] Bilirubin [Mass/Vol] 0.30 mg/dL 0.20-1.00 [facility] Comment on above: For patients on eltr ombopag therapy, use of Dimension [place] TBIL is not recommended. Chloride [Moles/Vol] 107 mmol/L 98-107 [facility] Cholesterol [Mass/Vol] 122 mg/dL <200 [facility] Comment on above: <200 mg/dL Desirable 200-240 mg/dL Borderline >240 mg/dL High Risk Eosinophils/100 WBC (Bld) 1.4 % 0-5 [facility] Glucose [Mass/Vol] 112 mg/dL 74-106 [facility] Comment on above: Fasting Glucose resu lt from 100 to 125 mg/dL suggests IMPAIRED HOMEOSTASIS per A.D.A. criteria. Neutrophils (Bld) [#/Vol] 5.9 10*3/uL 2.0-7.7 [facility] Neutrophils/100 WBC (Bld) 70.0 % 47-70 [facility] Potassium [Moles/Vol] 4.7 mmol/L 3.5-5.1 [facility] Protein [Mass/Vol] 6.8 g/dL 6.4-8.2 [facility] Sodium [Moles/Vol] 143 mmol/L 136-145 [facility] Testosterone [Mass/Vol] 39.15 ng/dL [facility] Comment on above: CENTRAL 90% REFERENC E RANGES MALE AGE <50 197.44 - 669.58 ng/dL MALE AGE > or = 50 187.72 - 684.19 ng/dL FEMALE AGE <50 8.38 - 35.01 ng/dL FEMALE AGE > or = 50 <7.00 - 35.92 ng/dL Effective as of 09/17/20 Triglyceride [Mass/Vol] 419 mg/dL <[address] [facility] Comment on above: The drugs N-Acetylcy steine and Metamizole may falsely depress this assay. TRIGLYCERIDE IS GREATER THAN 400 mg/dL. LDL RESULT IS INVALID AND WILL NOT BE REPORTED.Serum Triglycerides Reference Interval Normal <150 mg/dL Borderline high 150 - 199 mg/dL High 200 - 499 mg/dL Very High > or = 500 mg/dL WBC (Bld) [#/Vol] 8.4 10*3/uL 4.4-11.0 [facility] Blood erythrocytes count (nu mber/volume)Ordered By: Fredis Moon on 11-30-2022 RBC (Bld) [#/Vol] 4.67 10*6/uL 4.6-6.2 [facility] Blood hemoglobin measurement (mass/volume)Ordered By: Fredis Moon on 11-30-2022 Hemoglobin (Bld) [Mass/Vol] 13.2 g/dL 13.0-16.5 [facility] Blood lymphocytes/100 leukoc ytesOrdered By: Fredis Moon on 11-30-2022 Lymphocytes/100 WBC (Bld) 16.6 % 19-41 [facility] Blood monocytes/100 leukocyt esOrdered By: Fredis Moon on 11-30-2022 Monocytes/100 WBC (Bld) 10.6 % 0-10 [facility] Blood platelet mean volumeOr dered By: Fredis Moon on 11-30-2022 Platelet mean volume (Bld) [Entitic vol] 9.0 fL 6.2-12.0 [facility] Determination of erythrocyte mean corpuscular volume (MCV)Ordered By: Fredis Moon on 11-30-2022 MCV (RBC) [Entitic vol] 88.7 fL 80-[address] [facility] Hematocrit Auto (Bld) [Volum e fraction]Ordered By: Fredis Moon on 11-30-2022 Hematocrit (Bld) [Volume fraction] 41.4 % 40-54 [facility] Laboratory - Chemistry and C hemistry - challengeOrdered By: Fredis Moon on 11-30-2022 ALP [Catalytic activity/Vol] 102 U/L 45-117 [facility] ALT [Catalytic activity/Vol] 11 U/L 16-61 [facility] CO2 [Moles/Vol] 28.0 mmol/L 21.0-32.0 [facility] Globulin (S) [Mass/Vol] 3.5 g/dL 2.2-4.[address] [facility] Urea nitrogen/Creatinine [Mass ratio] 22.9 mg/mg 10-20 [facility] Laboratory - Hematology and Cell countsOrdered By: Fredis Moon on 11-30-2022 Erythrocyte distribution width (RBC) [Entitic vol] 46.8 fL 35.1-43.9 [facility] Erythrocyte distribution width (RBC) [Ratio] 14.6 % 11.6-14.6 [facility] Immature granulocytes/100 WBC (Bld) 0.700 % 0.0-0.9 [facility] Comment on above: IG% - Immature Granu locytes (promyelocytes, myelocytes and metamyelocytes) > 1% indicates that a LEFT SHIFT is Present. MCH (RBC) [Entitic mass] 28.3 pg 27.0-32.0 [facility] Nucleated RBC/100 WBC (Bld) [Ratio] 0 % 0-5 [facility] MCHC Auto (RBC) [Mass/Vol]Or dered By: Fredis Moon on 11-30-2022 MCHC (RBC) [Mass/Vol] 31.9 g/dL 32-36 [facility] No Panel InformationOrdered By: Fredis Moon on 11-30-2022 Estimated GFR (MDRD) Amer 84 mL/min >60 [facility] Comment on above: GFR Calc Estimated GFR (MDRD) Non-Af Amer 69 mL/min >60 [facility] Comment on above: Non- GFR Calc Thyroid Stimulating Hormone (TSH) 1.90 uIU/mL 0.358-3.74 [facility] Vitamin D 25-Hydroxy 47.6 ng/mL [facility] Comment on above: Vitamin D 25(OH) Sta tus Range Deficiency <20 ng/mL (50nmol/L) Insufficiency 20 - 30 ng/mL (50 - 75 nmol/L) Sufficiency 30 - 100 ng/mL (75 - 250 nmol/L) Toxicity >100 ng/mL (>250 nmol/L) Platelets bldOrdered By: Fredis Moon on 11-30-2022 Platelets (Bld) [#/Vol] 203 10*3/uL 150-450 [facility] Serum or plasma albumin mt urement (mass/volume)Ordered By: Fredis Moon on 11-30-2022 Albumin [Mass/Vol] 3.3 g/dL 3.2-5.0 [facility] Serum or plasma albumin/glob ulin mass ratioOrdered By: Fredis Moon on 11-30-2022 Albumin/Globulin [Mass ratio] 0.9 {ratio} 0.9-2.4 [facility] Serum or plasma calcium mt urement (mass/volume)Ordered By: Fredis Moon on 11-30-2022 Calcium [Mass/Vol] 8.8 mg/dL 8.5-10.1 [facility] Serum or plasma cholesterol in HDL measurement (mass/volume)Ordered By: Fredis Moon on 11-30-2022 Cholesterol in HDL [Mass/Vol] 39 mg/dL >40 [facility] Comment on above: The drugs N-Acetylcy steine and Metamizole may falsely depress this assay. Reference Range HDL <40 mg/dL Low HDL Cholesterol HDL >or= 60 mg/dL High HDL Cholesterol Serum or plasma cholesterol in VLDL measurement (mass/volume)Ordered By: Fredis Moon on 11-30-2022 Cholesterol in VLDL [Mass/Vol] [facility] Comment on above: Test not performed Serum or plasma creatinine m easurement (mass/volume)Ordered By: Fredis Moon on 11-30-2022 Creatinine [Mass/Vol] 1.09 mg/dL 0.70-1.30 [facility] Comment on above: The validity of the calculated GFR & GFRAA in patients over 70 years has not been determined. Clinical correlation is essential. Serum or plasma low density lipoprotein (LDL) cholesterol measurement (mass/volume)Ordered By: Fredis Moon on 11-30-2022 Cholesterol in LDL [Mass/Vol] [facility] Comment on above: Test not performed Serum or plasma urea nitroge n measurement (mass/volume)Ordered By: Fredis Moon on 11-30-2022 Urea nitrogen [Mass/Vol] 25 mg/dL 7-18 [facility] Thin prep Papanicolaou smear with manual screeningOrdered By: Fredis Moon on 11-30-2022 Thin prep Papanicolaou smear with manual screening 6 U/L 15-37 [facility] Thin prep Papanicolaou smear with manual screening 8 5-15 [facility] Whole blood hemoglobin A1c/t otal hemoglobin ratio (mass fraction)Ordered By: Fredis Moon on 11-30-2022 HbA1c (Bld) [Mass fraction] 7.2 % 3.8-5.6 [facility] Comment on above: Normal < 5.7 % Predi abetic 5.7 - 6.4 % Diabetic >or= 6.5 % Please note range changes. Absolute lymphocyte countOrd ered By: Fredis Moon on 08-27-2022 Lymphocytes Auto (Unsp spec) [#/Vol] 0.96 10*3/uL 0.83-4.51 [facility] Basophil percentageOrdered B y: Fredis Moon on 08-27-2022 Basophils/100 WBC (Bld) 0.9 % 0-1 [facility] Bilirubin [Mass/Vol] 0.40 mg/dL 0.20-1.00 [facility] Comment on above: For patients on eltr ombopag therapy, use of Dimension [place] TBIL is not recommended. Chloride [Moles/Vol] 107 mmol/L 98-107 [facility] Cholesterol [Mass/Vol] 119 mg/dL <200 [facility] Comment on above: <200 mg/dL Desirable 200-240 mg/dL Borderline >240 mg/dL High Risk Eosinophils/100 WBC (Bld) 1.8 % 0-5 [facility] Glucose [Mass/Vol] 163 mg/dL 74-106 [facility] Comment on above: Fasting Glucose resu lt greater than or equal to 126 mg/dL suggests DIABETES MELLITUS per A.D.A. criteria. Neutrophils (Bld) [#/Vol] 3.6 10*3/uL 2.0-7.7 [facility] Neutrophils/100 WBC (Bld) 66.9 % 47-70 [facility] Potassium [Moles/Vol] 4.1 mmol/L 3.5-5.1 [facility] Protein [Mass/Vol] 6.8 g/dL 6.4-8.2 [facility] Sodium [Moles/Vol] 139 mmol/L 136-145 [facility] Testosterone [Mass/Vol] 58.15 ng/dL [facility] Comment on above: CENTRAL 90% REFERENC E RANGES MALE AGE <50 197.44 - 669.58 ng/dL MALE AGE > or = 50 187.72 - 684.19 ng/dL FEMALE AGE <50 8.38 - 35.01 ng/dL FEMALE AGE > or = 50 <7.00 - 35.92 ng/dL Effective as of 09/17/20 Triglyceride [Mass/Vol] 199 mg/dL <[address] [facility] Comment on above: The drugs N-Acetylcy steine and Metamizole may falsely depress this assay.Serum Triglycerides Reference Interval Normal <150 mg/dL Borderline high 150 - 199 mg/dL High 200 - 499 mg/dL Very High > or = 500 mg/dL WBC (Bld) [#/Vol] 5.5 10*3/uL 4.4-11.0 [facility] Blood erythrocytes count (nu mber/volume)Ordered By: Fredis Moon on 08-27-2022 RBC (Bld) [#/Vol] 4.65 10*6/uL 4.6-6.2 [facility] Blood hemoglobin measurement (mass/volume)Ordered By: Fredis Moon on 08-27-2022 Hemoglobin (Bld) [Mass/Vol] 13.5 g/dL 13.0-16.5 [facility] Blood lymphocytes/100 leukoc ytesOrdered By: Fredis Moon on 08-27-2022 Lymphocytes/100 WBC (Bld) 17.6 % 19-41 [facility] Blood monocytes/100 leukocyt esOrdered By: Fredis Moon on 08-27-2022 Monocytes/100 WBC (Bld) 11.7 % 0-[address] [facility] Blood platelet mean volumeOr dered By: Fredis Moon on 08-27-2022 Platelet mean volume (Bld) [Entitic vol] 9.4 fL 6.2-12.0 [facility] Determination of erythrocyte mean corpuscular volume (MCV)Ordered By: Fredis Moon on 08-27-2022 MCV (RBC) [Entitic vol] 86.2 fL 80-[address] [facility] Hematocrit Auto (Bld) [Volum e fraction]Ordered By: Fredis Moon on 08-27-2022 Hematocrit (Bld) [Volume fraction] 40.1 % 40-54 [facility] Laboratory - Chemistry and C hemistry - challengeOrdered By: Fredis Moon on 08-27-2022 ALP [Catalytic activity/Vol] 95 U/L 45-117 [facility] ALT [Catalytic activity/Vol] 26 U/L 16-61 [facility] CO2 [Moles/Vol] 26.0 mmol/L 21.0-32.0 [facility] Globulin (S) [Mass/Vol] 3.4 g/dL 2.2-4.[address] [facility] Urea nitrogen/Creatinine [Mass ratio] 25.5 mg/mg 10-20 [facility] Laboratory - Hematology and Cell countsOrdered By: Fredis Moon on 08-27-2022 Erythrocyte distribution width (RBC) [Entitic vol] 43.4 fL 35.1-43.9 [facility] Erythrocyte distribution width (RBC) [Ratio] 14.0 % 11.6-14.6 [facility] Immature granulocytes/100 WBC (Bld) 1.100 % 0.0-0.9 [facility] Comment on above: IG% - Immature Granu locytes (promyelocytes, myelocytes and metamyelocytes) > 1% indicates that a LEFT SHIFT is Present. MCH (RBC) [Entitic mass] 29.0 pg 27.0-32.0 [facility] Nucleated RBC/100 WBC (Bld) [Ratio] 0 % 0-5 [facility] MCHC Auto (RBC) [Mass/Vol]Or dered By: Fredis Moon on 08-27-2022 MCHC (RBC) [Mass/Vol] 33.7 g/dL 32-36 [facility] No Panel InformationOrdered By: Fredis Moon on 08-27-2022 Estimated GFR (MDRD) Amer 94 mL/min >60 [facility] Comment on above: GFR Calc Estimated GFR (MDRD) Non-Af Amer 78 mL/min >60 [facility] Comment on above: Non- GFR Calc Thyroid Stimulating Hormone (TSH) 1.92 uIU/mL 0.358-3.74 [facility] Vitamin D 25-Hydroxy 62.6 ng/mL [facility] Comment on above: Vitamin D 25(OH) Sta tus Range Deficiency <20 ng/mL (50nmol/L) Insufficiency 20 - 30 ng/mL (50 - 75 nmol/L) Sufficiency 30 - 100 ng/mL (75 - 250 nmol/L) Toxicity >100 ng/mL (>250 nmol/L) Platelets bldOrdered By: Fredis Moon on 08-27-2022 Platelets (Bld) [#/Vol] 203 10*3/uL 150-450 [facility] Serum or plasma albumin mt urement (mass/volume)Ordered By: Fredis Moon on 08-27-2022 Albumin [Mass/Vol] 3.4 g/dL 3.2-5.0 [facility] Serum or plasma albumin/glob ulin mass ratioOrdered By: Fredis Moon on 08-27-2022 Albumin/Globulin [Mass ratio] 1.0 {ratio} 0.9-2.4 [facility] Serum or plasma calcium mt urement (mass/volume)Ordered By: Fredis Moon 08-27-2022 Calcium [Mass/Vol] 8.6 mg/dL 8.5-10.1 [facility] Serum or plasma cholesterol in HDL measurement (mass/volume)Ordered By: Fredis Moon 08-27-2022 Cholesterol in HDL [Mass/Vol] 39 mg/dL >40 [facility] Comment on above: The drugs N-Acetylcy steine and Metamizole may falsely depress this assay. Reference Range HDL <40 mg/dL Low HDL Cholesterol HDL >or= 60 mg/dL High HDL Cholesterol Serum or plasma cholesterol in VLDL measurement (mass/volume)Ordered By: Fredis Moon on 08-27-2022 Cholesterol in VLDL [Mass/Vol] 40 mg/dL 5-40 [facility] Serum or plasma creatinine m easurement (mass/volume)Ordered By: Fredis Moon 08-27-2022 Creatinine [Mass/Vol] 0.98 mg/dL 0.70-1.30 [facility] Comment on above: The validity of the calculated GFR & GFRAA in patients over 70 years has not been determined. Clinical correlation is essential. Serum or plasma low density lipoprotein (LDL) cholesterol measurement (mass/volume)Ordered By: Fredis Moon on 08-27-2022 Cholesterol in LDL [Mass/Vol] 40 mg/dL 0-130 [facility] Serum or plasma urea nitroge n measurement (mass/volume)Ordered By: Fredis Moon on 08-27-2022 Urea nitrogen [Mass/Vol] 25 mg/dL 7-18 [facility] Thin prep Papanicolaou smear with manual screeningOrdered By: Fredis Moon on 08-27-2022 Thin prep Papanicolaou smear with manual screening 19 U/L 15-37 [facility] Thin prep Papanicolaou smear with manual screening 6 5-15 [facility] Whole blood hemoglobin A1c/t otal hemoglobin ratio (mass fraction)Ordered By: Fredis Moon on 08-27-2022 HbA1c (Bld) [Mass fraction] 7.0 % 3.8-5.6 [facility] Comment on above: Normal < 5.7 % Predi abetic 5.7 - 6.4 % Diabetic >or= 6.5 % Please note range changes. No Panel InformationOrdered By: Dr. Dempsey on 07-10-2022 Prostate Specific Antigen Total < 0.01 ng/mL 0.0-4.0 [facility] Comment on above: This test was perfor med using the TPSA assay method for the[employer] chemistry system. Values obtained with differentassay methods cannot be used interchangably.When changing PSA assays in the course of monitoring apatient, additional sequential testing should be carriedout to confirm baseline values. Absolute lymphocyte countOrd ered By: Dr. Moon on 04-30-2022 Lymphocytes Auto (Unsp spec) [#/Vol] 1.01 10*3/uL 0.83-4.51 [facility] Basophil percentageOrdered B y: Dr. Moon on 04-30-2022 Basophils/100 WBC (Bld) 0.9 % 0-[address] [facility] Bilirubin [Mass/Vol] 0.40 mg/dL 0.20-1.00 [facility] Comment on above: For patients on eltr ombopag therapy, use of Dim[employer] [place] TBIL is not recommended. Chloride [Moles/Vol] 103 mmol/L 98-107 [facility] Cholesterol [Mass/Vol] 213 mg/dL <200 [facility] Comment on above: <200 mg/dL Desirable 200-240 mg/dL Borderline >240 mg/dL High Risk Eosinophils/100 WBC (Bld) 1.9 % 0-5 [facility] Glucose [Mass/Vol] 129 mg/dL 74-106 [facility] Comment on above: Fasting Glucose resu lt greater than or equal to 126 mg/dL suggests DIABETES MELLITUS per A.D.A. criteria. Neutrophils (Bld) [#/Vol] 4.0 10*3/uL 2.0-7.7 [facility] Neutrophils/100 WBC (Bld) 67.6 % 47-70 [facility] Potassium [Moles/Vol] 4.4 mmol/L 3.5-5.1 [facility] Protein [Mass/Vol] 7.6 g/dL 6.4-8.2 [facility] Sodium [Moles/Vol] 138 mmol/L 136-145 [facility] Testosterone [Mass/Vol] 66.62 ng/dL [facility] Comment on above: CENTRAL 90% REFERENC E RANGES MALE AGE <50 197.44 - 669.58 ng/dL MALE AGE > or = 50 187.72 - 684.19 ng/dL FEMALE AGE <50 8.38 - 35.01 ng/dL FEMALE AGE > or = 50 <7.00 - 35.92 ng/dL Effective as of 09/17/20 Triglyceride [Mass/Vol] 352 mg/dL <[address] [facility] Comment on above: The drugs N-Acetylcy steine and Metamizole may falsely depress this assay.Serum Triglycerides Reference Interval Normal <150 mg/dL Borderline high 150 - 199 mg/dL High 200 - 499 mg/dL Very High > or = 500 mg/dL WBC (Bld) [#/Vol] 5.9 10*3/uL 4.4-11.0 [facility] Blood erythrocytes count (nu mber/volume)Ordered By: Dr. Moon on 04-30-2022 RBC (Bld) [#/Vol] 5.19 10*6/uL 4.6-6.2 [facility] Blood hemoglobin measurement (mass/volume)Ordered By: Dr. Moon on 04-30-2022 Hemoglobin (Bld) [Mass/Vol] 14.4 g/dL 13.0-16.5 [facility] Blood lymphocytes/100 leukoc ytesOrdered By: Dr. Moon on 04-30-2022 Lymphocytes/100 WBC (Bld) 17.3 % 19-41 [facility] Blood monocytes/100 leukocyt esOrdered By: Dr. Moon on 04-30-2022 Monocytes/100 WBC (Bld) 10.6 % 0-[address] [facility] Blood platelet mean volumeOr dered By: Dr. Moon on 04-30-2022 Platelet mean volume (Bld) [Entitic vol] 9.6 fL 6.2-12.0 [facility] Determination of erythrocyte mean corpuscular volume (MCV)Ordered By: Dr. Moon on 04-30-2022 MCV (RBC) [Entitic vol] 87.1 fL 80-[address] [facility] Hematocrit Auto (Bld) [Volum e fraction]Ordered By: Dr. Moon on 04-30-2022 Hematocrit (Bld) [Volume fraction] 45.2 % 40-54 [facility] Laboratory - Chemistry and C hemistry - challengeOrdered By: Dr. Moon on 04-30-2022 ALP [Catalytic activity/Vol] 95 U/L 45-117 [facility] ALT [Catalytic activity/Vol] 10 U/L 16-61 [facility] CO2 [Moles/Vol] 25.0 mmol/L 21.0-32.0 [facility] Globulin (S) [Mass/Vol] 3.8 g/dL 2.2-4.2 [facility] Urea nitrogen/Creatinine [Mass ratio] 23.4 mg/mg 10-20 [facility] Laboratory - Hematology and Cell countsOrdered By: Dr. Moon on 04-30-2022 Erythrocyte distribution width (RBC) [Entitic vol] 45.9 fL 35.1-43.9 [facility] Erythrocyte distribution width (RBC) [Ratio] 14.5 % 11.6-14.6 [facility] Immature granulocytes/100 WBC (Bld) 1.700 % 0.0-0.9 [facility] Comment on above: IG% - Immature Granu locytes (promyelocytes, myelocytes and metamyelocytes) > 1% indicates that a LEFT SHIFT is Present. MCH (RBC) [Entitic mass] 27.7 pg 27.0-32.0 [facility] Nucleated RBC/100 WBC (Bld) [Ratio] 0 % 0-5 [facility] MCHC Auto (RBC) [Mass/Vol]Or dered By: Dr. Moon on 04-30-2022 MCHC (RBC) [Mass/Vol] 31.9 g/dL 32-36 [facility] No Panel InformationOrdered By: Dr. Moon on 04-30-2022 Estimated GFR (MDRD) Amer 72 mL/min >60 [facility] Comment on above: GFR Calc Estimated GFR (MDRD) Non-Af Amer 60 mL/min >60 [facility] Comment on above: Non- GFR Calc Prostate Specific Antigen Screen 0.02 ng/mL 0.00-4.00 [facility] Comment on above: This test was perfor med using the TPSA assay method for the[employer] chemistry system. Values obtained with differentassay methods cannot be used interchangably.When changing PSA assays in the course of monitoring apatient, additional sequential testing should be carriedout to confirm baseline values. Thyroid Stimulating Hormone (TSH) 1.87 uIU/mL 0.358-3.74 [facility] Vitamin D 25-Hydroxy 47.6 ng/mL [facility] Comment on above: Vitamin D 25(OH) Sta tus Range Deficiency <20 ng/mL (50nmol/L) Insufficiency 20 - 30 ng/mL (50 - 75 nmol/L) Sufficiency 30 - 100 ng/mL (75 - 250 nmol/L) Toxicity >100 ng/mL (>250 nmol/L) Platelets bldOrdered By: Dr. Moon on 04-30-2022 Platelets (Bld) [#/Vol] 213 10*3/uL 150-450 [facility] Serum or plasma albumin mt urement (mass/volume)Ordered By: Dr. Moon on 04-30-2022 Albumin [Mass/Vol] 3.8 g/dL 3.2-5.0 [facility] Serum or plasma albumin/glob ulin mass ratioOrdered By: Dr. Moon on 04-30-2022 Albumin/Globulin [Mass ratio] 1.0 {ratio} 0.9-2.4 [facility] Serum or plasma calcium mt urement (mass/volume)Ordered By: Dr. Moon on 04-30-2022 Calcium [Mass/Vol] 9.6 mg/dL 8.5-10.1 [facility] Serum or plasma cholesterol in HDL measurement (mass/volume)Ordered By: Dr. Moon on 04-30-2022 Cholesterol in HDL [Mass/Vol] 46 mg/dL >40 [facility] Comment on above: The drugs N-Acetylcy steine and Metamizole may falsely depress this assay. Reference Range HDL <40 mg/dL Low HDL Cholesterol HDL >or= 60 mg/dL High HDL Cholesterol Serum or plasma cholesterol in VLDL measurement (mass/volume)Ordered By: Dr. Moon on 04-30-2022 Cholesterol in VLDL [Mass/Vol] 70 mg/dL 5-40 [facility] Serum or plasma creatinine m easurement (mass/volume)Ordered By: Dr. Moon on 04-30-2022 Creatinine [Mass/Vol] 1.24 mg/dL 0.70-1.30 [facility] [facility] Comment on above: The validity of the calculated GFR & GFRAA in patients over 70 years has not been determined. Clinical correlation is essential. Serum or plasma low density lipoprotein (LDL) cholesterol measurement (mass/volume)Ordered By: Dr. Moon on 04-30-2022 Cholesterol in LDL [Mass/Vol] 97 mg/dL 0-130 [facility] Serum or plasma urea nitroge n measurement (mass/volume)Ordered By: Dr. Moon on 04-30-2022 Urea nitrogen [Mass/Vol] 29 mg/dL 7-18 [facility] Thin prep Papanicolaou smear with manual screeningOrdered By: Dr. Moon on 04-30-2022 Thin prep Papanicolaou smear with manual screening 16 U/L 15-37 [facility] Thin prep Papanicolaou smear with manual screening 10 5-15 [facility] Whole blood hemoglobin A1c/t otal hemoglobin ratio (mass fraction)Ordered By: Dr. Moon on 04-30-2022 HbA1c (Bld) [Mass fraction] 7.1 % 3.8-5.6 [facility] Comment on above: Normal < 5.7 % Predi abetic 5.7 - 6.4 % Diabetic >or= 6.5 % Please note range changes. Absolute lymphocyte countOrd ered By: Dr. Moon on 01-29-2022 Lymphocytes Auto (Unsp spec) [#/Vol] 1.15 10*3/uL 0.83-4.51 [facility] Basophil percentageOrdered B y: Dr. Moon on 01-29-2022 Basophils/100 WBC (Bld) 0.9 % 0-1 [facility] Bilirubin [Mass/Vol] 0.40 mg/dL 0.20-1.00 [facility] Comment on above: For patients on eltr ombopag therapy, use of Dim[employer] [place] TBIL is not recommended. Chloride [Moles/Vol] 103 mmol/L 98-107 [facility] Cholesterol [Mass/Vol] 116 mg/dL <200 [facility] Comment on above: <200 mg/dL Desirable 200-240 mg/dL Borderline >240 mg/dL High Risk Eosinophils/100 WBC (Bld) 1.6 % 0-5 [facility] Glucose [Mass/Vol] 126 mg/dL 74-106 [facility] Comment on above: Fasting Glucose resu lt greater than or equal to 126 mg/dL suggests DIABETES MELLITUS per A.D.A. criteria. Neutrophils (Bld) [#/Vol] 3.5 10*3/uL 2.0-7.7 [facility] Neutrophils/100 WBC (Bld) 62.4 % 47-70 [facility] Potassium [Moles/Vol] 4.1 mmol/L 3.5-5.1 [facility] Protein [Mass/Vol] 7.4 g/dL 6.4-8.2 [facility] Sodium [Moles/Vol] 140 mmol/L 136-145 [facility] Testosterone [Mass/Vol] 83.70 ng/dL [facility] Comment on above: CENTRAL 90% REFERENC E RANGES MALE AGE <50 197.44 - 669.58 ng/dL MALE AGE > or = 50 187.72 - 684.19 ng/dL FEMALE AGE <50 8.38 - 35.01 ng/dL FEMALE AGE > or = 50 <7.00 - 35.92 ng/dL Effective as of 09/17/20 Triglyceride [Mass/Vol] 194 mg/dL <[address] [facility] Comment on above: The drugs N-Acetylcy steine and Metamizole may falsely depress this assay.Serum Triglycerides Reference Interval Normal <150 mg/dL Borderline high 150 - 199 mg/dL High 200 - 499 mg/dL Very High > or = 500 mg/dL WBC (Bld) [#/Vol] 5.5 10*3/uL 4.4-11.0 [facility] Blood erythrocytes count (nu mber/volume)Ordered By: Dr. Moon on 01-29-2022 RBC (Bld) [#/Vol] 5.14 10*6/uL 4.6-6.2 [facility] Blood hemoglobin measurement (mass/volume)Ordered By: Dr. Moon on 01-29-2022 Hemoglobin (Bld) [Mass/Vol] 14.4 g/dL 13.0-16.5 [facility] Blood lymphocytes/100 leukoc ytesOrdered By: Dr. Moon on 01-29-2022 Lymphocytes/100 WBC (Bld) 20.8 % 19-41 [facility] Blood monocytes/100 leukocyt esOrdered By: Dr. Moon on 01-29-2022 Monocytes/100 WBC (Bld) 13.4 % 0-[address] [facility] Blood platelet mean volumeOr dered By: Dr. Moon on 01-29-2022 Platelet mean volume (Bld) [Entitic vol] 9.6 fL 6.2-12.0 [facility] Determination of erythrocyte mean corpuscular volume (MCV)Ordered By: Dr. Moon on 01-29-2022 MCV (RBC) [Entitic vol] 86.8 fL 80-[address] [facility] Hematocrit Auto (Bld) [Volum e fraction]Ordered By: Dr. Moon on 01-29-2022 Hematocrit (Bld) [Volume fraction] 44.6 % 40-54 [facility] Laboratory - Chemistry and C hemistry - challengeOrdered By: Dr. Moon on 01-29-2022 ALP [Catalytic activity/Vol] 99 U/L 45-117 [facility] ALT [Catalytic activity/Vol] 13 U/L 16-61 [facility] CO2 [Moles/Vol] 32.0 mmol/L 21.0-32.0 [facility] Globulin (S) [Mass/Vol] 3.7 g/dL 2.2-4.[address] [facility] Urea nitrogen/Creatinine [Mass ratio] 25.0 mg/mg 10-20 [facility] Laboratory - Hematology and Cell countsOrdered By: Dr. Moon on 01-29-2022 Erythrocyte distribution width (RBC) [Entitic vol] 44.6 fL 35.1-43.9 [facility] Erythrocyte distribution width (RBC) [Ratio] 14.1 % 11.6-14.6 [facility] Immature granulocytes/100 WBC (Bld) 0.900 % 0.0-0.9 [facility] Comment on above: IG% - Immature Granu locytes (promyelocytes, myelocytes and metamyelocytes) > 1% indicates that a LEFT SHIFT is Present. MCH (RBC) [Entitic mass] 28.0 pg 27.0-32.0 [facility] Nucleated RBC/100 WBC (Bld) [Ratio] 0 % 0-5 [facility] MCHC Auto (RBC) [Mass/Vol]Or dered By: Dr. Moon on 01-29-2022 MCHC (RBC) [Mass/Vol] 32.3 g/dL 32-36 [facility] No Panel InformationOrdered By: Dr. Moon on 01-29-2022 Estimated GFR (MDRD) Amer 81 mL/min >60 [facility] Comment on above: GFR Calc Estimated GFR (MDRD) Non-Af Amer 67 mL/min >60 [facility] Comment on above: Non- GFR Calc Thyroid Stimulating Hormone (TSH) 2.69 uIU/mL 0.358-3.74 [facility] Vitamin D 25-Hydroxy 58.1 ng/mL [facility] Comment on above: Vitamin D 25(OH) Sta tus Range Deficiency <20 ng/mL (50nmol/L) Insufficiency 20 - 30 ng/mL (50 - 75 nmol/L) Sufficiency 30 - 100 ng/mL (75 - 250 nmol/L) Toxicity >100 ng/mL (>250 nmol/L) Platelets bldOrdered By: Dr. Moon on 01-29-2022 Platelets (Bld) [#/Vol] 189 10*3/uL 150-450 [facility] Serum or plasma albumin mt urement (mass/volume)Ordered By: Dr. Moon on 01-29-2022 Albumin [Mass/Vol] 3.7 g/dL 3.2-5.0 [facility] Serum or plasma albumin/glob ulin mass ratioOrdered By: Dr. Moon on 01-29-2022 Albumin/Globulin [Mass ratio] 1.0 {ratio} 0.9-2.4 [facility] Serum or plasma calcium mt urement (mass/volume)Ordered By: Dr. Moon on 01-29-2022 Calcium [Mass/Vol] 9.2 mg/dL 8.5-10.1 [facility] Serum or plasma cholesterol in HDL measurement (mass/volume)Ordered By: Dr. Moon on 01-29-2022 Cholesterol in HDL [Mass/Vol] 43 mg/dL >40 [facility] Comment on above: The drugs N-Acetylcy steine and Metamizole may falsely depress this assay. Reference Range HDL <40 mg/dL Low HDL Cholesterol HDL >or= 60 mg/dL High HDL Cholesterol Serum or plasma cholesterol in VLDL measurement (mass/volume)Ordered By: Dr. Moon on 01-29-2022 Cholesterol in VLDL [Mass/Vol] 39 mg/dL 5-40 [facility] Serum or plasma creatinine m easurement (mass/volume)Ordered By: Dr. Moon on 01-29-2022 Creatinine [Mass/Vol] 1.12 mg/dL 0.70-1.30 [facility] Comment on above: The validity of the calculated GFR & GFRAA in patients over 70 years has not been determined. Clinical correlation is essential. Serum or plasma low density lipoprotein (LDL) cholesterol measurement (mass/volume)Ordered By: Dr. Moon on 01-29-2022 Cholesterol in LDL [Mass/Vol] 34 mg/dL 0-130 [facility] Serum or plasma urea nitroge n measurement (mass/volume)Ordered By: Dr. Moon on 01-29-2022 Urea nitrogen [Mass/Vol] 28 mg/dL 7-18 [facility] Thin prep Papanicolaou smear with manual screeningOrdered By: Dr. Moon on 01-29-2022 Thin prep Papanicolaou smear with manual screening 13 U/L 15-37 [facility] Thin prep Papanicolaou smear with manual screening 5 5-15 [facility] Whole blood hemoglobin A1c/t otal hemoglobin ratio (mass fraction)Ordered By: Dr. Moon on 01-29-2022 HbA1c (Bld) [Mass fraction] 7.3 % 3.8-5.6 [facility] Comment on above: Normal < 5.7 % Predi abetic 5.7 - 6.4 % Diabetic >or= 6.5 % Please note range changes. No Panel InformationOrdered By: MARY JANE Gregorio on 01-14-2022 Prostate Specific Antigen Total < 0.01 ng/mL 0.0-4.0 [facility] Comment on above: This test was perfor med using the TPSA assay method for [employer] chemistry system. Values obtained with differentassay methods cannot be used interchangably.When changing PSA assays in the course of monitoring apatient, additional sequential testing should be carriedout to confirm baseline values. Absolute lymphocyte counton 10-30-2021 Lymphocytes Auto (Unsp spec) [#/Vol] 1.16 10*3/uL 0.83-4.51 [facility] Work Phone: Basophil percentageon 2021 Basophils/100 WBC (Bld) 0.4 % 0-[address] [facility] Work Phone: Bilirubin [Mass/Vol] 0.40 mg/dL 0.20-1.00 [facility] Work Phone: Comment on above: For patients on eltr ombopag therapy, use of [employer] [place] TBIL is not recommended. Chloride [Moles/Vol] 105 mmol/L 98-107 [facility] Work Phone: Cholesterol [Mass/Vol] 95 mg/dL <200 [facility] Work Phone: Comment on above: <200 mg/dL Desirable 200-240 mg/dL Borderline >240 mg/dL High Risk Eosinophils/100 WBC (Bld) 3.1 % 0-5 [facility] Work Phone: Glucose [Mass/Vol] 133 mg/dL 74-106 [facility] Work Phone: Comment on above: Fasting Glucose resu lt greater than or equal to 126 mg/dL suggests DIABETES MELLITUS per A.D.A. criteria. Neutrophils (Bld) [#/Vol] 4.4 10*3/uL 2.0-7.7 [facility] Work Phone: Neutrophils/100 WBC (Bld) 65.0 % 47-70 [facility] Work Phone: Potassium [Moles/Vol] 4.6 mmol/L 3.5-5.1 [facility] Work Phone: Protein [Mass/Vol] 7.4 g/dL 6.4-8.2 [facility] Work Phone: Sodium [Moles/Vol] 140 mmol/L 136-145 [facility] Work Phone: Testosterone [Mass/Vol] 34.24 ng/dL [facility] Work Phone: Comment on above: CENTRAL 90% REFERENC E RANGES MALE AGE <50 197.44 - 669.58 ng/dL MALE AGE > or = 50 187.72 - 684.19 ng/dL FEMALE AGE <50 8.38 - 35.01 ng/dL FEMALE AGE > or = 50 <7.00 - 35.92 ng/dL Effective as of 09/17/20 Triglyceride [Mass/Vol] 163 mg/dL <[address] [facility] Work Phone: Comment on above: The drugs N-Acetylcy steine and Metamizole may falsely depress this assay.Serum Triglycerides Reference Interval Normal <150 mg/dL Borderline high 150 - 199 mg/dL High 200 - 499 mg/dL Very High > or = 500 mg/dL WBC (Bld) [#/Vol] 6.8 10*3/uL 4.4-11.0 [facility] Work Phone: Blood erythrocytes count (nu mber/volume)on 10-30-2021 RBC (Bld) [#/Vol] 4.82 10*6/uL 4.6-6.2 [facility] Work Phone: Blood hemoglobin measurement (mass/volume)on 10-30-2021 Hemoglobin (Bld) [Mass/Vol] 13.7 g/dL 13.0-16.5 [facility] Work Phone: Blood lymphocytes/100 leukoc yteson 10-30-2021 Lymphocytes/100 WBC (Bld) 17.1 % 19-41 [facility] Work Phone: Blood monocytes/100 leukocyt eson 10-30-2021 Monocytes/100 WBC (Bld) 13.4 % 0-[address] [facility] Work Phone: Blood platelet mean volumeon 10-30-2021 Platelet mean volume (Bld) [Entitic vol] 9.5 fL 6.2-12.0 [facility] Work Phone: Determination of erythrocyte mean corpuscular volume (MCV)on 10-30-2021 MCV (RBC) [Entitic vol] 87.6 fL 80-[address] [facility] Work Phone: Hematocrit Auto (Bld) [Volum e fraction]on 10-30-2021 Hematocrit (Bld) [Volume fraction] 42.2 % 40-54 [facility] Work Phone: Laboratory - Chemistry and C hemistry - challengeon 10-30-2021 ALP [Catalytic activity/Vol] 103 U/L 45-117 [facility] Work Phone: ALT [Catalytic activity/Vol] 15 U/L 16-61 [facility] Work Phone: CO2 [Moles/Vol] 25.0 mmol/L 21.0-32.0 [facility] Work Phone: Globulin (S) [Mass/Vol] 3.9 g/dL 2.2-4.[address] [facility] Work Phone: Urea nitrogen/Creatinine [Mass ratio] 23.0 mg/mg 10-20 [facility] Work Phone: Laboratory - Hematology and Cell countson 10-30-2021 Erythrocyte distribution width (RBC) [Entitic vol] 44.1 fL 35.1-43.9 [facility] Work Phone: Erythrocyte distribution width (RBC) [Ratio] 13.8 % 11.6-14.6 [facility] Work Phone: Immature granulocytes/100 WBC (Bld) 1.000 % 0.0-0.9 [facility] Work Phone: Comment on above: IG% - Immature Granu locytes (promyelocytes, myelocytes and metamyelocytes) > 1% indicates that a LEFT SHIFT is Present. MCH (RBC) [Entitic mass] 28.4 pg 27.0-32.0 [facility] Work Phone: Nucleated RBC/100 WBC (Bld) [Ratio] 0 % 0-5 [facility] Work Phone: MCHC Auto (RBC) [Mass/Vol]on 10-30-2021 MCHC (RBC) [Mass/Vol] 32.5 g/dL 32-36 [facility] Work Phone: No Panel Informationon 10-30 Estimated GFR (MDRD) Amer 80 mL/min >60 [facility] Work Phone: Comment on above: GFR Calc Estimated GFR (MDRD) Non-Af Amer 66 mL/min >60 [facility] Work Phone: Comment on above: Non- GFR Calc Thyroid Stimulating Hormone (TSH) 2.52 uIU/mL 0.358-3.74 [facility] Work Phone: Vitamin D 25-Hydroxy 71.0 ng/mL [facility] Work Phone: Comment on above: Vitamin D 25(OH) Sta tus Range Deficiency <20 ng/mL (50nmol/L) Insufficiency 20 - 30 ng/mL (50 - 75 nmol/L) Sufficiency 30 - 100 ng/mL (75 - 250 nmol/L) Toxicity >100 ng/mL (>250 nmol/L) Platelets bldon 10-30-2021 Platelets (Bld) [#/Vol] 199 10*3/uL 150-450 [facility] Work Phone: Serum or plasma albumin mt urement (mass/volume)on 10-30-2021 Albumin [Mass/Vol] 3.5 g/dL 3.2-5.0 [facility] Work Phone: Serum or plasma albumin/glob ulin mass ratioon 10-30-2021 Albumin/Globulin [Mass ratio] 0.9 {ratio} 0.9-2.4 [facility] Work Phone: Serum or plasma calcium mt urement (mass/volume)on 10-30-2021 Calcium [Mass/Vol] 9.4 mg/dL 8.5-10.1 [facility] Work Phone: Serum or plasma cholesterol in HDL measurement (mass/volume)on 10-30-2021 Cholesterol in HDL [Mass/Vol] 48 mg/dL >40 [facility] Work Phone: Comment on above: The drugs N-Acetylcy steine and Metamizole may falsely depress this assay. Reference Range HDL <40 mg/dL Low HDL Cholesterol HDL >or= 60 mg/dL High HDL Cholesterol Serum or plasma cholesterol in VLDL measurement (mass/volume)on 10-30-2021 Cholesterol in VLDL [Mass/Vol] 33 mg/dL 5-40 [facility] Work Phone: Serum or plasma creatinine m easurement (mass/volume)on 10-30-2021 Creatinine [Mass/Vol] 1.13 mg/dL 0.70-1.30 [facility] Work Phone: Comment on above: The validity of the calculated GFR & GFRAA in patients over 70 years has not been determined. Clinical correlation is essential. Serum or plasma low density lipoprotein (LDL) cholesterol measurement (mass/volume)on 10-30-2021 Cholesterol in LDL [Mass/Vol] 14 mg/dL 0-130 [facility] Work Phone: Serum or plasma urea nitroge n measurement (mass/volume)on 10-30-2021 Urea nitrogen [Mass/Vol] 26 mg/dL 7-18 [facility] Work Phone: Thin prep Papanicolaou smear with manual screeningon 10-30-2021 Thin prep Papanicolaou smear with manual screening 9 U/L 15-37 [facility] Work Phone: Thin prep Papanicolaou smear with manual screening 10 5-15 [facility] Work Phone: Whole blood hemoglobin A1c/t otal hemoglobin ratio (mass fraction)on 10-30-2021 HbA1c (Bld) [Mass fraction] 7.0 % 3.8-5.6 [facility] Work Phone: Comment on above: Normal < 5.7 % Predi abetic 5.7 - 6.4 % Diabetic >or= 6.5 % Please note range changes. Absolute lymphocyte counton 08-15-2021 Lymphocytes Auto (Unsp spec) [#/Vol] 1.20 10*3/uL 0.83-4.51 [facility] Work Phone: Basophil percentageon 2021 Basophils/100 WBC (Bld) 0.6 % 0-[address] [facility] Work Phone: Bilirubin [Mass/Vol] 0.40 mg/dL 0.20-1.00 [facility] Work Phone: Comment on above: For patients on eltr ombopag therapy, use of Dim[employer] [place] TBIL is not recommended. Chloride [Moles/Vol] 104 mmol/L 98-107 [facility] Work Phone: Cholesterol [Mass/Vol] 105 mg/dL <200 [facility] Work Phone: Comment on above: <200 mg/dL Desirable 200-240 mg/dL Borderline >240 mg/dL High Risk Eosinophils/100 WBC (Bld) 1.5 % 0-5 [facility] Work Phone: Glucose [Mass/Vol] 140 mg/dL 74-106 [facility] Work Phone: Comment on above: Fasting Glucose resu lt greater than or equal to 126 mg/dL suggests DIABETES MELLITUS per A.D.A. criteria. Neutrophils (Bld) [#/Vol] 4.4 10*3/uL 2.0-7.7 [facility] Work Phone: Neutrophils/100 WBC (Bld) 66.8 % 47-70 [facility] Work Phone: Potassium [Moles/Vol] 4.1 mmol/L 3.5-5.1 [facility] Work Phone: Protein [Mass/Vol] 7.4 g/dL 6.4-8.2 [facility] Work Phone: Sodium [Moles/Vol] 139 mmol/L 136-145 [facility] Work Phone: Testosterone [Mass/Vol] 39.30 ng/dL [facility] Work Phone: Comment on above: CENTRAL 90% REFERENC E RANGES MALE AGE <50 197.44 - 669.58 ng/dL MALE AGE > or = 50 187.72 - 684.19 ng/dL FEMALE AGE <50 8.38 - 35.01 ng/dL FEMALE AGE > or = 50 <7.00 - 35.92 ng/dL Effective as of 09/17/20 Triglyceride [Mass/Vol] 178 mg/dL <[address] [facility] Work Phone: Comment on above: The drugs N-Acetylcy steine and Metamizole may falsely depress this assay.Serum Triglycerides Reference Interval Normal <150 mg/dL Borderline high 150 - 199 mg/dL High 200 - 499 mg/dL Very High > or = 500 mg/dL WBC (Bld) [#/Vol] 6.5 10*3/uL 4.4-11.0 [facility] Work Phone: Blood erythrocytes count (nu mber/volume)on 08-15-2021 RBC (Bld) [#/Vol] 5.00 10*6/uL 4.6-6.2 [facility] Work Phone: Blood hemoglobin measurement (mass/volume)on 08-15-2021 Hemoglobin (Bld) [Mass/Vol] 14.1 g/dL 13.0-16.5 [facility] Work Phone: Blood lymphocytes/100 leukoc yteson 08-15-2021 Lymphocytes/100 WBC (Bld) 18.4 % 19-41 [facility] Work Phone: Blood monocytes/100 leukocyt eson 08-15-2021 Monocytes/100 WBC (Bld) 11.5 % 0-[address] [facility] Work Phone: Blood platelet mean volumeon 08-15-2021 Platelet mean volume (Bld) [Entitic vol] 9.5 fL 6.2-12.0 [facility] Work Phone: Determination of erythrocyte mean corpuscular volume (MCV)on 08-15-2021 MCV (RBC) [Entitic vol] 86.2 fL 80-[address] [facility] Work Phone: Hematocrit Auto (Bld) [Volum e fraction]on 08-15-2021 Hematocrit (Bld) [Volume fraction] 43.1 % 40-54 [facility] Work Phone: Laboratory - Chemistry and C hemistry - challengeon 08-15-2021 ALP [Catalytic activity/Vol] 91 U/L 45-117 [facility] Work Phone: ALT [Catalytic activity/Vol] 12 U/L 16-61 [facility] Work Phone: CO2 [Moles/Vol] 26.0 mmol/L 21.0-32.0 [facility] Work Phone: Globulin (S) [Mass/Vol] 3.7 g/dL 2.2-4.[address] [facility] Work Phone: Urea nitrogen/Creatinine [Mass ratio] 22.9 mg/mg 10-20 [facility] Work Phone: Laboratory - Hematology and Cell countson 08-15-2021 Erythrocyte distribution width (RBC) [Entitic vol] 44.4 fL 35.1-43.9 [facility] Work Phone: Erythrocyte distribution width (RBC) [Ratio] 14.3 % 11.6-14.6 [facility] Work Phone: Immature granulocytes/100 WBC (Bld) 1.200 % 0.0-0.9 [facility] Work Phone: Comment on above: IG% - Immature Granu locytes (promyelocytes, myelocytes and metamyelocytes) > 1% indicates that a LEFT SHIFT is Present. MCH (RBC) [Entitic mass] 28.2 pg 27.0-32.0 [facility] Work Phone: Nucleated RBC/100 WBC (Bld) [Ratio] 0 % 0-5 [facility] Work Phone: MCHC Auto (RBC) [Mass/Vol]on 08-15-2021 MCHC (RBC) [Mass/Vol] 32.7 g/dL 32-36 [facility] Work Phone: No Panel Informationon 08-15 Estimated GFR (MDRD) Amer 77 mL/min >60 [facility] Work Phone: Comment on above: GFR Calc Estimated GFR (MDRD) Non-Af Amer 63 mL/min >60 [facility] Work Phone: Comment on above: Non- GFR Calc Thyroid Stimulating Hormone (TSH) 2.38 uIU/mL 0.358-3.74 [facility] Work Phone: Vitamin D 25-Hydroxy 45.4 ng/mL [facility] Work Phone: Comment on above: Vitamin D 25(OH) Sta tus Range Deficiency <20 ng/mL (50nmol/L) Insufficiency 20 - 30 ng/mL (50 - 75 nmol/L) Sufficiency 30 - 100 ng/mL (75 - 250 nmol/L) Toxicity >100 ng/mL (>250 nmol/L) Platelets bldon 08-15-2021 Platelets (Bld) [#/Vol] 205 10*3/uL 150-450 [facility] Work Phone: Serum or plasma albumin mt urement (mass/volume)on 08-15-2021 Albumin [Mass/Vol] 3.7 g/dL 3.2-5.0 [facility] Work Phone: Serum or plasma albumin/glob ulin mass ratioon 08-15-2021 Albumin/Globulin [Mass ratio] 1.0 {ratio} 0.9-2.4 [facility] Work Phone: Serum or plasma calcium mt urement (mass/volume)on 08-15-2021 Calcium [Mass/Vol] 9.4 mg/dL 8.5-10.1 [facility] Work Phone: Serum or plasma cholesterol in HDL measurement (mass/volume)on 08-15-2021 Cholesterol in HDL [Mass/Vol] 44 mg/dL >40 [facility] Work Phone: Comment on above: The drugs N-Acetylcy steine and Metamizole may falsely depress this assay. Reference Range HDL <40 mg/dL Low HDL Cholesterol HDL >or= 60 mg/dL High HDL Cholesterol Serum or plasma cholesterol in VLDL measurement (mass/volume)on 08-15-2021 Cholesterol in VLDL [Mass/Vol] 36 mg/dL 5-40 [facility] Work Phone: Serum or plasma creatinine m easurement (mass/volume)on 08-15-2021 Creatinine [Mass/Vol] 1.18 mg/dL 0.70-1.30 [facility] Work Phone: Comment on above: The validity of the calculated GFR & GFRAA in patients over 70 years has not been determined. Clinical correlation is essential. Serum or plasma low density lipoprotein (LDL) cholesterol measurement (mass/volume)on 08-15-2021 Cholesterol in LDL [Mass/Vol] 25 mg/dL 0-130 [facility] Work Phone: Serum or plasma urea nitroge n measurement (mass/volume)on 08-15-2021 Urea nitrogen [Mass/Vol] 27 mg/dL 7-18 [facility] Work Phone: Thin prep Papanicolaou smear with manual screeningon 08-15-2021 Thin prep Papanicolaou smear with manual screening 15 U/L 15-37 [facility] Work Phone: Thin prep Papanicolaou smear with manual screening 9 5-15 [facility] Work Phone: Whole blood hemoglobin A1c/t otal hemoglobin ratio (mass fraction)on 08-15-2021 HbA1c (Bld) [Mass fraction] 7.2 % 3.8-5.6 [facility] Work Phone: Comment on above: Normal < 5.7 % Predi abetic 5.7 - 6.4 % Diabetic >or= 6.5 % Please note range changes. Basophil percentageon 2021 Chloride [Moles/Vol] 106 mmol/L 98-107 [facility] Work Phone: Glucose [Mass/Vol] 231 mg/dL 74-106 [facility] Work Phone: Comment on above: Glucose result great er than or equal to 200 mg/dLsuggests DIABETES MELLITUS per A.D.A. criteria. Potassium [Moles/Vol] 4.2 mmol/L 3.5-5.1 [facility] Work Phone: Sodium [Moles/Vol] 140 mmol/L 136-145 [facility] Work Phone: Testosterone [Mass/Vol] 40.82 ng/dL [facility] Work Phone: Comment on above: CENTRAL 90% REFERENC E RANGES MALE AGE <50 197.44 - 669.58 ng/dL MALE AGE > or = 50 187.72 - 684.19 ng/dL FEMALE AGE <50 8.38 - 35.01 ng/dL FEMALE AGE > or = 50 <7.00 - 35.92 ng/dL Effective as of 09/17/20 Laboratory - Chemistry and C hemistry - challengeon 07-11-2021 CO2 [Moles/Vol] 27.0 mmol/L 21.0-32.0 [facility] Work Phone: Urea nitrogen/Creatinine [Mass ratio] 22.7 mg/mg 12-11 [facility] Work Phone: No Panel Informationon 07-11 Estimated GFR (MDRD) Amer 83 mL/min >60 [facility] Work Phone: Comment on above: GFR Calc Estimated GFR (MDRD) Non-Af Amer 69 mL/min >60 [facility] Work Phone: Comment on above: Non- GFR Calc Prostate Specific Antigen Total < 0.01 ng/mL 0.0-4.0 [facility] Work Phone: Comment on above: This test was perfor med using the TPSA assay method for the[facility] chemistry system. Values obtained with differentassay methods cannot be used interchangably.When changing PSA assays in the course of monitoring apatient, additional sequential testing should be carriedout to confirm baseline values. Serum or plasma calcium mt urement (mass/volume)on 07-11-2021 Calcium [Mass/Vol] 9.1 mg/dL 8.5-10.1 [facility] Work Phone: Serum or plasma creatinine m easurement (mass/volume)on 07-11-2021 Creatinine [Mass/Vol] 1.10 mg/dL 0.70-1.30 [facility] Work Phone: Comment on above: The validity of the calculated GFR & GFRAA in patients over 70 years has not been determined. Clinical correlation is essential. Serum or plasma urea nitroge n measurement (mass/volume)on 07-11-2021 Urea nitrogen [Mass/Vol] 25 mg/dL 09-08 [facility] Work Phone: Thin prep Papanicolaou smear with manual screeningon 07-11-2021 Thin prep Papanicolaou smear with manual screening 7 07-06 [facility] Work Phone: CNOVon 05-29-2021 CNOV Office Visit ([facility] ) FARHANA THRASHER ([id number]) 1940 M Date Time Provider Department 05/29/21 9:45 AM YOSELIN KHAN [facility] During your visit today, we recorded the following information about you: Temperature Pulse Respiration Blood pressure 97.8 degrees 59/minute 18/minute 136/74 Weight 91.4 kg Yoselin Khan APRN.HOME DEMONSTRATION AGENT 05/29/2021 10:25 AM Signed Subjective Patient came in because he was exposed to covid a week ago and has no symptoms at this time. The history is provided by the patient. No stamping machine operator was used. Review of Systems Constitutional: Negative. [...] as directed) blood sugar diagnostic (ACCU-CHEK CLARITZA) [facility] [place] test strip CHECK BLOOD SUGARS 3-4 TIMES [...] - COVID WITH FLUA+B, ROUTINE Yoselin Khan APRN.HOME DEMONSTRATION AGENT Referring Provider: SELF [200] Allergies As of Date: 05/29/2021 Noted Allergy Reaction ADHESIVE TAPE-SILICONES 05/23/2021 2 - Rash Date Reviewed: 05/29/2021 Reviewed by: Urszula Lowry LPN - Fully Assessed Reason for Visit: COVID exposure [Other] Cmt: COVID exposure Primary Visit Diagnosis:Close exposure to COVID-19 virus [Z20.822] Order(s):COVID WITH FLUA+B, ROUTINE [SQCOVFLU] Order #: [id number] FUTURE COVID WITH FLUA+B, ROUTINE [SQCOVFLU] Order #: [id number]. #:[id number] Prescriptions as of 05/29/2021 - insulin needles, [...] directed) - blood sugar diagnostic (ACCU-CHEK CLARITZA) [facility] [place] test strip CHECK BLOOD SUGARS 3-4 TIMES DAILY - calcium carbonate 600 mg-cholecalciferol 200 units (CALCIUM 600 + D,3,) 600 mg(1,500mg) -200 unit ORAL Tab (more content not included)... Normal [facility] CNOVon 05-23-2021 CNOV Office Visit (UCWSTR ) FARHANA THRASHER ([id number]) 1940 M Date Time Provider Department 05/23/21 11:30 AM ALIX VALLE [facility] During your visit today, we recorded the following information about you: Temperature Pulse Respiration Blood pressure 97.5 degrees 67/minute 18/minute 118/68 Weight 93.4 kg Alix Valle APRN.CNP 05/23/2021 3:33 PM Signed This note was created using Parature. Subjective Farhana Thrasher is a 81 year [...] as directed) blood sugar diagnostic (ACCU-CHEK CLARITZA) [facility] [place] test strip CHECK BLOOD SUGARS 3-4 TIMES [...] ASYMPTOMATIC ELECTIVE COVID-19 Sadiq Massey TEACHING PROVIDER (Physician/PA/AVAYA ENGINEER) NOTE OF PERSONAL INVOLVEMENT IN CARE: I have personally seen and examined the patient and performed the medical decision-making components. I have reviewed the Advanced Practice Registered Nurse (AVAYA ENGINEER) Student's documentation and verified the findings in the note as written. Any additions or changes are noted in everton (more content not included)... Normal [facility] SARS-CoV-2 RNA Resp Ql BRIAN+p robeon 05-23-2021 SARS-CoV-2 (COVID-19) RNA BRIAN+probe Ql (Resp) COVID 19 RESULT: SARS-CoV-2 (Agent of COVID-19) Not Detected by RT-PCR or equivalent method. This test was developed and its performance characteristics determined by [facility]. This test has been authorized by FDA under an Emergency Use Authorization (EUA). This test has been validated in accordance with the FDA's Guidance Document Policy for Diagnostics Testing in Laboratories Certified to Perform High Complexity Testing under CLIA prior to Emergency use Authorization for Coronavirus Disease 2019 during the Public Health Emergency issued on April 22, 2019. Test performed by [facility], [facility] [place], [address] [place] [address]. Normal [facility] Comment on above: Performed By: #### [id number] #### [facility] CLIA [id number] [address] [place] [address] [place] Absolute lymphocyte counton 05-12-2021 Lymphocytes Auto (Unsp spec) [#/Vol] 1.26 10*3/uL 0.83-4.51 [facility] Work Phone: Basophil percentageon 2021 Basophils/100 WBC (Bld) 0.5 % 0-[address] [facility] Work Phone: Bilirubin [Mass/Vol] 0.40 mg/dL 0.20-1.00 [facility] Work Phone: Comment on above: For patients on eltr ombopag therapy, use of Dimension [place] TBIL is not recommended. Chloride [Moles/Vol] 106 mmol/L 98-[address] [facility] Work Phone: [phone] Cholesterol [Mass/Vol] 113 mg/dL <200 [address] [facility] Work Phone: [phone] Comment on above: <200 mg/dL Desirable 200-240 mg/dL Borderline >240 mg/dL High Risk Eosinophils/100 WBC (Bld) 1.1 % 0-5 [facility] Work Phone: Glucose [Mass/Vol] 139 mg/dL 74-106 [facility] Work Phone: Comment on above: Fasting Glucose resu lt greater than or equal to 126 mg/dL suggests DIABETES MELLITUS per A.D.A. criteria. Neutrophils (Bld) [#/Vol] 5.0 10*3/uL 2.0-7.7 [facility] Work Phone: Neutrophils/100 WBC (Bld) 67.8 % 47-70 [facility] Work Phone: Potassium [Moles/Vol] 4.5 mmol/L 3.5-5.1 [facility] Work Phone: Protein [Mass/Vol] 6.8 g/dL 6.4-8.2 [facility] Work Phone: [phone] Sodium [Moles/Vol] 138 mmol/L 136-145 [facility] Work Phone: [phone] Testosterone [Mass/Vol] 222.68 ng/dL [facility] Work Phone: [phone] Comment on above: CENTRAL 90% REFERENC E RANGES MALE AGE <50 197.44 - 669.58 ng/dL MALE AGE > or = 50 187.72 - 684.19 ng/dL FEMALE AGE <50 8.38 - 35.01 ng/dL FEMALE AGE > or = 50 <7.00 - 35.92 ng/dL Effective as of 09/17/20 Triglyceride [Mass/Vol] 277 mg/dL <[address] [facility] Work Phone: Comment on above: The drugs N-Acetylcy steine and Metamizole may falsely depress this assay.Serum Triglycerides Reference Interval Normal <150 mg/dL Borderline high 150 - 199 mg/dL High 200 - 499 mg/dL Very High > or = 500 mg/dL WBC (Bld) [#/Vol] 7.3 10*3/uL 4.4-11.0 [facility] Work Phone: Blood erythrocytes count (nu mber/volume)on 05-12-2021 RBC (Bld) [#/Vol] 4.61 10*6/uL 4.6-6.2 [facility] Work Phone: Blood hemoglobin measurement (mass/volume)on 05-12-2021 Hemoglobin (Bld) [Mass/Vol] 13.3 g/dL 13.0-16.5 [facility] Work Phone: Blood lymphocytes/100 leukoc yteson 05-12-2021 Lymphocytes/100 WBC (Bld) 17.2 % 19-41 [facility] Work Phone: Blood monocytes/100 leukocyt eson 05-12-2021 Monocytes/100 WBC (Bld) 12.4 % 0-[address] [facility] Work Phone: Blood platelet mean volumeon 05-12-2021 Platelet mean volume (Bld) [Entitic vol] 9.4 fL 6.2-12.0 [facility] Work Phone: Determination of erythrocyte mean corpuscular volume (MCV)on 05-12-2021 MCV (RBC) [Entitic vol] 87.6 fL 80-[address] [facility] Work Phone: Hematocrit Auto (Bld) [Volum e fraction]on 05-12-2021 Hematocrit (Bld) [Volume fraction] 40.4 % 40-54 [facility] Work Phone: Laboratory - Chemistry and C hemistry - challengeon 05-12-2021 ALP [Catalytic activity/Vol] 78 U/L 45-117 [facility] Work Phone: ALT [Catalytic activity/Vol] 9 U/L 16-61 [facility] Work Phone: CO2 [Moles/Vol] 26.0 mmol/L 21.0-32.0 [facility] Work Phone: Globulin (S) [Mass/Vol] 3.3 g/dL 2.2-4.[address] [facility] Work Phone: Urea nitrogen/Creatinine [Mass ratio] 19.0 mg/mg 10-20 [facility] Work Phone: Laboratory - Hematology and Cell countson 05-12-2021 Erythrocyte distribution width (RBC) [Entitic vol] 43.7 fL 35.1-43.9 [facility] Work Phone: Erythrocyte distribution width (RBC) [Ratio] 13.8 % 11.6-14.6 [facility] Work Phone: Immature granulocytes/100 WBC (Bld) 1.000 % 0.0-0.9 [facility] Work Phone: Comment on above: IG% - Immature Granu locytes (promyelocytes, myelocytes and metamyelocytes) > 1% indicates that a LEFT SHIFT is Present. MCH (RBC) [Entitic mass] 28.9 pg 27.0-32.0 [facility] Work Phone: Nucleated RBC/100 WBC (Bld) [Ratio] 0 % 0-5 [facility] Work Phone: MCHC Auto (RBC) [Mass/Vol]on 05-12-2021 MCHC (RBC) [Mass/Vol] 32.9 g/dL 32-[facility] Work Phone: No Panel Informationon 05-12 Estimated GFR (MDRD) Amer 74 mL/min >60 [facility] Work Phone: Comment on above: GFR Calc Estimated GFR (MDRD) Non-Af Amer 62 mL/min >60 [facility] Work Phone: Comment on above: Non- GFR Calc Thyroid Stimulating Hormone (TSH) 2.16 uIU/mL 0.358-3.74 [facility] Work Phone: Vitamin D 25-Hydroxy 41.9 ng/mL [facility] Work Phone: Comment on above: Vitamin D 25(OH) Sta tus Range Deficiency <20 ng/mL (50nmol/L) Insufficiency 20 - 30 ng/mL (50 - 75 nmol/L) Sufficiency 30 - 100 ng/mL (75 - 250 nmol/L) Toxicity >100 ng/mL (>250 nmol/L) Platelets bldon 05-12-2021 Platelets (Bld) [#/Vol] 213 10*3/uL 150-450 [facility] Work Phone: Serum or plasma albumin mt urement (mass/volume)on 05-12-2021 Albumin [Mass/Vol] 3.5 g/dL 3.2-5.0 [facility] Work Phone: Serum or plasma albumin/glob ulin mass ratioon 05-12-2021 Albumin/Globulin [Mass ratio] 1.1 {ratio} 0.9-2.4 [facility] Work Phone: Serum or plasma calcium mt urement (mass/volume)on 05-12-2021 Calcium [Mass/Vol] 9.2 mg/dL 8.5-10.1 [facility] Work Phone: Serum or plasma cholesterol in HDL measurement (mass/volume)on 05-12-2021 Cholesterol in HDL [Mass/Vol] 39 mg/dL >40 [facility] Work Phone: Comment on above: The drugs N-Acetylcy steine and Metamizole may falsely depress this assay. Reference Range HDL <40 mg/dL Low HDL Cholesterol HDL >or= 60 mg/dL High HDL Cholesterol Serum or plasma cholesterol in VLDL measurement (mass/volume)on 05-12-2021 Cholesterol in VLDL [Mass/Vol] 55 mg/dL 5-40 [facility] Work Phone: Serum or plasma creatinine m easurement (mass/volume)on 05-12-2021 Creatinine [Mass/Vol] 1.21 mg/dL 0.70-1.30 [facility] Work Phone: Comment on above: The validity of the calculated GFR & GFRAA in patients over 70 years has not been determined. Clinical correlation is essential. Serum or plasma low density lipoprotein (LDL) cholesterol measurement (mass/volume)on 05-12-2021 Cholesterol in LDL [Mass/Vol] 19 mg/dL 0-130 [facility] Work Phone: Serum or plasma urea nitroge n measurement (mass/volume)on 05-12-2021 Urea nitrogen [Mass/Vol] 23 mg/dL 7-18 [facility] Work Phone: Thin prep Papanicolaou smear with manual screeningon 05-12-2021 Thin prep Papanicolaou smear with manual screening 13 U/L 15-37 [facility] Work Phone: Thin prep Papanicolaou smear with manual screening 6 5-15 [facility] Work Phone: Whole blood hemoglobin A1c/t otal hemoglobin ratio (mass fraction)on 05-12-2021 HbA1c (Bld) [Mass fraction] 7.4 % 3.8-5.6 [facility] Work Phone: Comment on above: Normal < 5.7 % Predi abetic 5.7 - 6.4 % Diabetic >or= 6.5 % Please note range changes. Basophil percentageon 2021 Testosterone [Mass/Vol] 42.20 ng/dL [facility] Work Phone: Comment on above: CENTRAL 90% REFERENC E RANGES MALE AGE <50 197.44 - 669.58 ng/dL MALE AGE > or = 50 187.72 - 684.19 ng/dL FEMALE AGE <50 8.38 - 35.01 ng/dL FEMALE AGE > or = 50 <7.00 - 35.92 ng/dL Effective as of 09/17/20 No Panel Informationon 04-04 Prostate Specific Antigen Total < 0.01 ng/mL 0.0-4.0 [facility] Work Phone: Comment on above: This test was perfor med using the TPSA assay method for the[employer] chemistry system. Values obtained with differentassay methods cannot be used interchangably.When changing PSA assays in the course of monitoring apatient, additional sequential testing should be carriedout to confirm baseline values. Absolute lymphocyte counton 02-11-2021 Lymphocytes Auto (Unsp spec) [#/Vol] 1.21 10*3/uL 0.83-4.51 [facility] Work Phone: Basophil percentageon 2020 Bilirubin [Mass/Vol] 0.50 mg/dL 0.20-1.00 [facility] Work Phone: Comment on above: For patients on eltr ombopag therapy, use of Dimension [place] TBIL is not recommended. Chloride [Moles/Vol] 101 mmol/L 98-107 [facility] Work Phone: Cholesterol [Mass/Vol] 107 mg/dL <200 [facility] Work Phone: Comment on above: <200 mg/dL Desirable 200-240 mg/dL Borderline >240 mg/dL High Risk Eosinophils/100 WBC (Bld) 1.5 % 0-5 [facility] Work Phone: Glucose [Mass/Vol] 109 mg/dL 74-106 [facility] Work Phone: Comment on above: Fasting Glucose resu lt from 100 to 125 mg/dL suggests IMPAIRED HOMEOSTASIS per A.D.A. criteria.Please note revised GLUCOSE reference range effective 2017. Neutrophils (Bld) [#/Vol] 3.8 10*3/uL 2.0-7.7 [facility] Work Phone: Potassium [Moles/Vol] 4.5 mmol/L 3.5-5.1 [facility] Work Phone: Protein [Mass/Vol] 7.2 g/dL 6.4-8.2 [facility] Work Phone: Sodium [Moles/Vol] 140 mmol/L 136-145 [facility] Work Phone: Testosterone [Mass/Vol] 71.79 ng/dL [facility] Work Phone: Comment on above: CENTRAL 90% REFERENC E RANGES MALE AGE <50 197.44 - 669.58 ng/dL MALE AGE > or = 50 187.72 - 684.19 ng/dL FEMALE AGE <50 8.38 - 35.01 ng/dL FEMALE AGE > or = 50 <7.00 - 35.92 ng/dL Effective as of 09/17/20 Triglyceride [Mass/Vol] 168 mg/dL [facility] Work Phone: Comment on above: The drugs N-Acetylcy steine and Metamizole may falsely depress this assay.Serum Triglycerides Reference Interval Normal <150 mg/dL Borderline high 150 - 199 mg/dL High 200 - 499 mg/dL Very High > or = 500 mg/dL WBC (Bld) [#/Vol] 5.9 10*3/uL 4.4-11.0 [facility] Work Phone: Blood erythrocytes count (nu mber/volume)on 02-11-2021 RBC (Bld) [#/Vol] 5.45 10*6/uL 4.6-6.2 [facility] Work Phone: Blood hemoglobin measurement (mass/volume)on 02-11-2021 Hemoglobin (Bld) [Mass/Vol] 14.2 g/dL 13.0-16.5 [facility] Work Phone: Blood lymphocytes/100 leukoc yteson 02-11-2021 Lymphocytes/100 WBC (Bld) 20.6 % 19-41 [facility] Work Phone: Blood manual differential co mment interpretation (narrative result)on 02-11-2021 Manual differential comment Jones (Bld) [Interp] SCANNED [facility] Work Phone: Blood monocytes/100 leukocyt eson 02-11-2021 Monocytes/100 WBC (Bld) 11.6 % 0-[address] [facility] Work Phone: Blood platelet mean volumeon 02-11-2021 Platelet mean volume (Bld) [Entitic vol] 8.8 fL 6.2-12.0 [facility] Work Phone: [phone] Determination of erythrocyte mean corpuscular volume (MCV)on 02-11-2021 MCV (RBC) [Entitic vol] 80.0 fL 80-[address] [facility] Work Phone: Hematocrit Auto (Bld) [Volum e fraction]on 02-11-2021 Hematocrit (Bld) [Volume fraction] 43.6 % 40-54 [facility] Work Phone: Laboratory - Chemistry and C hemistry - challengeon 02-11-2021 ALP [Catalytic activity/Vol] 83 U/L 45-117 [facility] Work Phone: ALT [Catalytic activity/Vol] 18 U/L 16-61 [facility] Work Phone: CO2 [Moles/Vol] 31.0 mmol/L 21.0-32.0 [facility] Work Phone: Globulin (S) [Mass/Vol] 3.7 g/dL 2.2-4.[address] [facility] Work Phone: Urea nitrogen/Creatinine [Mass ratio] 21.1 mg/mg 10-20 [facility] Work Phone: Laboratory - Hematology and Cell countson 02-11-2021 Anisocytosis Ql (Bld) [facility]+ [facility] Work Phone: Basophils/100 WBC (Unsp spec) 1.0 % 0-1 [facility] Work Phone: Erythrocyte distribution width (RBC) [Entitic vol] 58.9 fL 35.1-43.9 [facility] Work Phone: Erythrocyte distribution width (RBC) [Ratio] 20.7 % 11.6-14.6 [facility] Work Phone: Immature granulocytes/100 WBC (Bld) 0.900 % 0.0-0.9 [facility] Work Phone: Comment on above: IG% - Immature Granu locytes (promyelocytes, myelocytes and metamyelocytes) > 1% indicates that a LEFT SHIFT is Present. MCH (RBC) [Entitic mass] 26.1 pg 27.0-32.0 [facility] Work Phone: Neutrophils/100 WBC (Bld) 64.4 % 47-70 [facility] Work Phone: Nucleated RBC/100 WBC (Bld) [Ratio] 0 % 0-5 [facility] Work Phone: MCHC Auto (RBC) [Mass/Vol]on 02-11-2021 MCHC (RBC) [Mass/Vol] 32.6 g/dL 32-36 [facility] Work Phone: No Panel Informationon 02-11 Estimated GFR (MDRD) Amer 84 mL/min >60 [facility] Work Phone: Comment on above: GFR Calc Estimated GFR (MDRD) Non-Af Amer 69 mL/min >60 [facility] Work Phone: Comment on above: Non- GFR Calc Thyroid Stimulating Hormone (TSH) 2.30 uIU/mL 0.358-3.74 [facility] Work Phone: Vitamin D 25-Hydroxy 49.2 ng/mL [facility] Work Phone: Comment on above: Vitamin D 25(OH) Sta tus Range Deficiency <20 ng/mL (50nmol/L) Insufficiency 20 - 30 ng/mL (50 - 75 nmol/L) Sufficiency 30 - 100 ng/mL (75 - 250 nmol/L) Toxicity >100 ng/mL (>250 nmol/L) Platelets bldon 02-11-2021 Platelets (Bld) [#/Vol] 185 10*3/uL 150-450 [facility] Work Phone: Serum or plasma albumin mt urement (mass/volume)on 02-11-2021 Albumin [Mass/Vol] 3.5 g/dL 3.2-5.0 [facility] Work Phone: Serum or plasma albumin/glob ulin mass ratioon 02-11-2021 Albumin/Globulin [Mass ratio] 0.9 {ratio} 0.9-2.4 [facility] Work Phone: Serum or plasma calcium mt urement (mass/volume)on 02-11-2021 Calcium [Mass/Vol] 9.4 mg/dL 8.5-10.1 [facility] Work Phone: Serum or plasma cholesterol in HDL measurement (mass/volume)on 02-11-2021 Cholesterol in HDL [Mass/Vol] 49 mg/dL [facility] Work Phone: Comment on above: The drugs N-Acetylcy steine and Metamizole may falsely depress this assay. Reference Range HDL <40 mg/dL Low HDL Cholesterol HDL >or= 60 mg/dL High HDL Cholesterol Serum or plasma cholesterol in VLDL measurement (mass/volume)on 02-11-2021 Cholesterol in VLDL [Mass/Vol] 34 mg/dL 5-40 [facility] Work Phone: Serum or plasma creatinine m easurement (mass/volume)on 02-11-2021 Creatinine [Mass/Vol] 1.09 mg/dL 0.70-1.30 [facility] Work Phone: Comment on above: The validity of the calculated GFR & GFRAA in patients over 70 years has not been determined. Clinical correlation is essential. Serum or plasma low density lipoprotein (LDL) cholesterol measurement (mass/volume)on 02-11-2021 Cholesterol in LDL [Mass/Vol] 24 mg/dL 0-130 [facility] Work Phone: Serum or plasma urea nitroge n measurement (mass/volume)on 02-11-2021 Urea nitrogen [Mass/Vol] 23 mg/dL 7-18 [facility] Work Phone: Thin prep Papanicolaou smear with manual screeningon 02-11-2021 Thin prep Papanicolaou smear with manual screening 13 U/L 15-37 [facility] Work Phone: Thin prep Papanicolaou smear with manual screening 8 5-15 [facility] Work Phone: Whole blood hemoglobin A1c/t otal hemoglobin ratio (mass fraction)on 02-11-2021 HbA1c (Bld) [Mass fraction] 7.0 % 3.8-5.6 [facility] Work Phone: Comment on above: Normal < 5.7 % Predi abetic 5.7 - 6.4 % Diabetic >or= 6.5 % Please note range changes. Chart Maintenanceon 01-29-20 17 HbA1c (Bld) [Mass fraction] 7.2 % Invalid Interpretation Code [employer] Work Phone: Office Visiton 12-21-2016 Tobacco smoking status Tobacco smoking status NHIS Invalid Interpretation Code [employer] Work Phone: Tobacco use status [facility] Former smoker Invalid Interpretation Code [employer] Work Phone: Clinical Lists Update: Prelo activities assistant 12-18-2016 Left ventricular Ejection fraction 60 % Invalid Interpretation Code [employer] Work Phone: Chart Maintenanceon 07-31-19 17 HbA1c (Bld) [Mass fraction] 7.9 % Invalid Interpretation Code [employer] Work Phone: Office Visit: Consult- Typw 2 diabeteson 05-14-2016 Adolescent depression screening assessment Adolescent depression screening assessment Invalid Interpretation Code [employer] Work Phone: Adult depression screening assessment Adult depression screening assessment Invalid Interpretation Code [employer] Work Phone: Dietary management education, guidance, and counseling (procedure) yes Invalid Interpretation Code [employer] Work Phone: Documentation of current medications (procedure) Done Invalid Interpretation Code [employer] Work Phone: Fall risk assessment No Invalid Interpretation Code [employer] Work Phone: Tobacco smoking status Former Invalid Interpretation Code [employer] Work Phone: Tobacco use status [facility] Former smoker Invalid Interpretation Code [employer] Work Phone: Clinical Lists Update: Prelo activities assistant 01-21-2016 Left ventricular Ejection fraction 60 % Invalid Interpretation Code [employer] Work Phone: Replaced Document: Shamika Eason CG Observationson 12-20-2015 EKG QRS axis -34 deg Invalid Interpretation Code [employer] Work Phone: electrocardiogram interpretation Atrial Bradycardia P:QRS - 1:1, Abnormal P axis, H Rate 53 -Left axis -anterior fascicular block. ABNORMAL Invalid Interpretation Code [employer] Work Phone: GE use only - for [employer] import when terms are not otherwise specified 396 ms Invalid Interpretation Code [employer] Work Phone: Heart rate 53 /min Invalid Interpretation Code [employer] Work Phone: Interpretation Atrial Bradycardia P:QRS - 1:1, Abnormal P axis, H Rate 53-Left axis -anterior fascicular block. ABNORMAL Invalid Interpretation Code [employer] Work Phone: P [place] -47 deg Invalid Interpretation Code [employer] Work Phone: [phone] P wave axis, electrocardiogram -47 deg Invalid Interpretation Code [employer] Work Phone: MA Interval 158 ms Invalid Interpretation Code [employer] Work Phone: [phone] MA interval, electrocardiogram 158 ms Invalid Interpretation Code [employer] Work Phone: QRS axis, electrocardiogram -34 deg Invalid Interpretation Code [employer] Work Phone: QRS Duration 112 ms Invalid Interpretation Code [employer] Work Phone: QRS duration, electrocardiogram 112 ms Invalid Interpretation Code [employer] Work Phone: QT Interval new path ms Invalid Interpretation Code [facility] Work Phone: QT interval, electrocardiogram new path ms Invalid Interpretation Code [place] [facility] Work Phone: QTc [place] 396 ms Invalid Interpretation Code [facility] Work Phone: [phone] T [place] -1 deg Invalid Interpretation Code [facility] Work Phone: [phone] T wave axis, electrocardiogram -1 deg Invalid Interpretation Code [place] [facility] Work Phone: Clinical Lists Update: Prelo activities assistant 10-02-2015 Albumin [Mass/Vol] 3.3 g/dL Low [facility] Work Phone: Alkaline phosphatase (ALP) 84 U/L Invalid Interpretation Code [facility] Work Phone: ALP (Bld) [Catalytic activity/Vol] 84 U/L Invalid Interpretation Code [place] [facility] Work Phone: ALT [Catalytic activity/Vol] 25 U/L Invalid Interpretation Code [place] [facility] Work Phone: Anion gap 8 mmol/L Invalid Interpretation Code [place] [employer] [facility] Work Phone: Anion gap [Moles/Vol] 8 mmol/L Invalid Interpretation Code [place] [facility] Work Phone: AST [Catalytic activity/Vol] 22 U/L Invalid Interpretation Code [place] [facility] Work Phone: Bilirubin [Mass/Vol] 0.30 mg/dL Invalid Interpretation Code [place] [facility] Work Phone: Calcium [Mass/Vol] 8.4 mg/dL Low [facility] Work Phone: Chloride [Moles/Vol] 103 mmol/L Invalid Interpretation Code [place] [facility] Work Phone: Cholesterol [Mass/Vol] 99 mg/dL Invalid Interpretation Code [place] [facility] Work Phone: Cholesterol in HDL [Mass/Vol] 34 mg/dL Low [place] [facility] Work Phone: Cholesterol in LDL [Mass/Vol] -12 mg/dL Low [facility] Work Phone: CO2 26.0 mmol/L Invalid Interpretation Code [facility] Work Phone: [phone] CO2 (BldV) [Partial pressure] 26.0 mmol/L Invalid Interpretation Code [facility] Work Phone: Creatinine [Mass/Vol] 1.24 mg/dL Invalid Interpretation Code [facility] Work Phone: Erythrocyte distribution width (RBC) [Ratio] 13.6 % Invalid Interpretation Code [facility] Work Phone: Erythrocyte distribution width Auto Ratio (RBC) 13.6 % Invalid Interpretation Code [facility] Work Phone: [phone] Erythrocytes (RBC) 4.26 10*6/uL Low [facility] Work Phone: [phone] Globulin 3.4 g/dL Invalid Interpretation Code [facility] Work Phone: [phone] globulin, serum 3.4 Invalid Interpretation Code [facility] Work Phone: Glucose [Mass/Vol] 164 mg/dL High [facility] Work Phone: Hematocrit (Bld) [Volume fraction] 37.1 % Low [facility] Work Phone: Hematocrit (HCT) 37.1 % Low [facility] Work Phone: [phone] Hemoglobin (Bld) [Mass/Vol] 12.4 g/dL Low [facility] Work Phone: Lipoprotein.pre-beta [Mass/Vol] 77 mg/dL High [facility] Work Phone: MCH 29.1 pg Invalid Interpretation Code [facility] Work Phone: [phone] MCH (RBC) [Entitic mass] 29.1 pg Invalid Interpretation Code [facility] Work Phone: MCHC (RBC) [Mass/Vol] 33.4 g/dL Invalid Interpretation Code [facility] Work Phone: MCHC mass conc (RBC) 33.4 g/dL Invalid Interpretation Code [facility] Work Phone: [phone] MCV 87.1 fL Invalid Interpretation Code [facility] Work Phone: [phone] MCV (RBC) [Entitic vol] 87.1 fL Invalid Interpretation Code [facility] Work Phone: Platelet mean volume (Bld) [Entitic vol] 10.3 fL Invalid Interpretation Code [facility] Work Phone: Platelets 179 10*3/mm3 Invalid Interpretation Code [facility] Work Phone: [phone] Platelets (Bld) [#/Vol] 179 10*3/uL Invalid Interpretation Code [facility] Work Phone: PMV by Johnathan 10.3 fL Invalid Interpretation Code [facility] Work Phone: [phone] Potassium [Moles/Vol] 4.5 mmol/L Invalid Interpretation Code [facility] Work Phone: Protein [Mass/Vol] 6.7 g/dL Invalid Interpretation Code [facility] Work Phone: RBC (Bld) [#/Vol] 4.26 10*6/uL Low [facility] Work Phone: Sodium [Moles/Vol] 137 mmol/L Invalid Interpretation Code [facility] Work Phone: Thyroid stimulating hormone (TSH) 1.92 u[iU]/mL Invalid Interpretation Code [facility] Work Phone: [phone] Triglyceride [Mass/Vol] 383 mg/dL High B [facility] Work Phone: TSH Qn 1.92 m[IU]/L Invalid Interpretation Code [facility] Work Phone: Urea nitrogen [Mass/Vol] 22 mg/dL High [facility] Work Phone: Urea nitrogen/Creatinine [Mass ratio] 17.7 mg/mg Invalid Interpretation Code [employer] Work Phone: WBC (Bld) [#/Vol] 6.4 10*3/uL Invalid Interpretation Code [employer] Work Phone: WBC (Leukocytes) 6.4 10*3/uL Invalid Interpretation Code [employer] Work Phone: basophils as percent of blood leukocytes, manual count 0.5 % Invalid Interpretation Code [employer] Work Phone: eosinophils as percent of blood leukocytes, manual count 1.9 % Invalid Interpretation Code [employer] Work Phone: Lymphocytes/100 leukocytes 26.8 % Invalid Interpretation Code [employer] Work Phone: Lymphocytes/100 WBC (Bld) 26.8 % Invalid Interpretation Code [employer] Work Phone: Monocytes/100 leukocytes 9.2 % Invalid Interpretation Code [employer] Work Phone: Monocytes/100 WBC (Bld) 9.2 % Invalid Interpretation Code [employer] Work Phone: neutrophils, band form as percent of blood leukocytes, manual count 61.4 % Invalid Interpretation Code [employer] Work Phone: Office Visit: [facility] 05-08-19 15 cardiac risk group C Invalid Interpretation Code [employer] Work Phone: General cardiovascular disease 10Y risk [#] Parlin.D'Agostino N/A Invalid Interpretation Code [employer] Work Phone: Office Visit: Consult- Typw 2 diabeteson 02-22-2014 Colonoscopy (procedure) Colonoscopy (procedure) Invalid Interpretation Code [employer] Work Phone: External Other: Preferred Me thod of Contacton 09-28-2013 [employer] Invalid Interpretation Code [employer] Work Phone: Patient's prefered method of contact [employer] Invalid Interpretation Code [employer] Work Phone: Clinical Lists Update: Prelo activities assistant 03-20-2013 Albumin/Globulin [Mass ratio] 0.9 {ratio} Invalid Interpretation Code [employer] Work Phone: Replaced Document: Shamika MACEDO Observationson 10-06-2012 Pulse (Heart Rate) 376 ms Invalid Interpretation Code [facility] Work Phone: QT interval/QT interval (corrected for heart rate), electrocardiogram 376 ms Invalid Interpretation Code [employer] Work Phone: Culture, urine Bacteria identified Cx Nom (U) Positive [facility] Work Phone: Vital Signs Date Time Vital Sign Value Performing Clinician Facility 10-02-2024 11:34-0400 Body height 167.[address] Fredis Moon MD Work Phone: [facility] 10-02-2024 11:34-0400 Body mass index (BMI) [Ratio] 33 kg/m2 Dr. Fredis Moon MD Work Phone: [facility] 10-02-2024 11:34-0400 Body weight 92.[address] Fredis Moon MD Work Phone: [facility] 10-02-2024 11:34-0400 Diastolic blood pressure 52 mm[Hg] Dr. Fredis Moon MD Work Phone: [facility] 10-02-2024 11:34-0400 Heart rate 64 /min Dr. Fredis Moon MD Work Phone: [facility] 10-02-2024 11:34-0400 Respiratory rate 18 /min Dr. Fredis Moon MD Work Phone: [facility] 10-02-2024 11:34-0400 Systolic blood pressure 97 mm[Hg] Dr. Fredis Moon MD Work Phone: [facility] 09-29-2024 08:14-0400 Body weight 94.[address] Fredis Moon MD Work Phone: [facility] 09-11-2024 10:57-0400 Body height 167.[address] Fredis Moon MD Work Phone: 1(958)229-885860 [place] [address] 09-11-2024 10:57-0400 Body weight 93.[address] Fredis Moon MD Work Phone: 0(343)448-963660 [place] [address] 09-08-2024 13:37-0400 Body temperature 98 [degF] Dr. Fredis Moon MD Work Phone: 6(123)109-494329 [place] [address] 09-08-2024 13:37-0400 Diastolic blood pressure 63 mm[Hg] Dr. Fredis Moon MD Work Phone: 4(726)195-872329 [place] [address] 09-08-2024 13:37-0400 Heart rate 54 /min Dr. Fredis Moon MD Work Phone: 7(939)058-093729 [place] [address] 09-08-2024 13:37-0400 Respiratory rate 18 /min Dr. Fredis Moon MD Work Phone: 2(588)736-952329 [place] [address] 09-08-2024 13:37-0400 SaO2% (BldA) [Mass fraction] 98 % Dr. Fredis Moon MD Work Phone: 4(800)656-782029 [place] [address] 09-08-2024 13:37-0400 Systolic blood pressure 160 mm[Hg] Dr. Fredis Moon MD Work Phone: 0(948)108-413660 [place] [address] 09-08-2024 10:34-0400 Body mass index (BMI) [Ratio] 33.1 kg/m2 Dr. Fredis Moon MD Work Phone: 6(015)837-241460 [place] [address] 09-08-2024 10:34-0400 Body weight 93.[address] Fredis Moon MD Work Phone: 6(699)025-559660 [place] [address] 09-08-2024 09:59-0400 Body height 167.[address] Fredis Moon MD Work Phone: 0(535)699-514560 [place] [address] 09-01-2024 08:23-0400 Body weight 93.[address] Fredis Moon MD Work Phone: 4(194)540-030460 [place] [address] 08-03-2024 07:09-0400 Body height 167.[address] Fredis Moon MD Work Phone: 6(302)831-904729 [place] [address] 08-03-2024 07:09-0400 Body weight 94.[address] Fredis Moon MD Work Phone: 1(579)543-646229 [place] [address] 07-06-2024 08:22-0400 Body height 167.[address] Fredis Moon MD Work Phone: 7(559)378-454829 [place] [address] 07-06-2024 08:22-0400 Body mass index (BMI) [Ratio] 33.2 kg/m2 Dr. Fredis Moon MD Work Phone: 0(716)941-815029 [place] [address] 07-06-2024 08:22-0400 Body weight 93.[address] Fredis Moon MD Work Phone: 2(157)153-843629 [place] [address] 07-06-2024 08:22-0400 Diastolic blood pressure 72 mm[Hg] Dr. Fredis Moon MD Work Phone: 5(980)170-713229 [place] [address] 07-06-2024 08:22-0400 Heart rate 59 /min Dr. Fredis Moon MD Work Phone: 8(515)308-332229 [place] [address] 07-06-2024 08:22-0400 Respiratory rate 18 /min Dr. Fredis Moon MD Work Phone: 7(363)656-378529 [place] [address] 07-06-2024 08:22-0400 SaO2% (BldA) [Mass fraction] 97 % Dr. Fredis Moon MD Work Phone: 8(471)577-019729 [place] [address] 07-06-2024 08:22-0400 Systolic blood pressure 125 mm[Hg] Dr. Fredis Moon MD Work Phone: 4(259)359-993729 [place] [address] 07-04-2024 10:21-0400 Body mass index (BMI) [Ratio] 34.3 kg/m2 Dr. Fredis Moon MD Work Phone: 0(119)460-679929 [place] [address] 07-04-2024 09:41-0400 Diastolic blood pressure 50 mm[Hg] Dr. Fredis Moon MD Work Phone: 1(980)608-112329 [place] [address] 07-04-2024 09:41-0400 Heart rate 56 /min Dr. Fredis Moon MD Work Phone: [facility] 07-04-2024 09:41-0400 SaO2% (BldA) [Mass fraction] 97 % Dr. Fredis Moon MD Work Phone: [facility] 07-04-2024 09:41-0400 Systolic blood pressure 122 mm[Hg] Dr. Fredis Moon MD Work Phone: [facility] 07-04-2024 09:28-0400 Body weight 96.[address] Fredis Moon MD Work Phone: [facility] 06-22-2024 11:18-0400 Diastolic blood pressure 67 mm[Hg] Miguel Angel Idriskosky AVAYA ENGINEER - HOME DEMONSTRATION AGENT Work Phone: [facility] 06-22-2024 11:18-0400 Heart rate 60 /min Miguel Angel Idriskoblancay AVAYA ENGINEER - HOME DEMONSTRATION AGENT Work Phone: [facility] 06-22-2024 11:18-0400 Systolic blood pressure 129 mm[Hg] Miguel Angel Evangelinay AVAYA ENGINEER - HOME DEMONSTRATION AGENT Work Phone: [facility] 06-22-2024 11:13-0400 Body mass index (BMI) [Ratio] 32.42 kg/m2 Miguel Angel Evangelinay AVAYA ENGINEER - HOME DEMONSTRATION AGENT Work Phone: [facility] 06-22-2024 11:13-0400 Body weight 93.89 kg Miguel Angel Rozina AVAYA ENGINEER - HOME DEMONSTRATION AGENT Work Phone: [facility] 06-14-2024 10:54-0400 Body temperature 98.8 [degF] Dr. Fredis Moon MD Work Phone: [facility] 06-14-2024 10:54-0400 Diastolic blood pressure 46 mm[Hg] Dr. Fredis Moon MD Work Phone: [facility] 06-14-2024 10:54-0400 Heart rate 52 /min Dr. Fredis Moon MD Work Phone: [facility] 06-14-2024 10:54-0400 Respiratory rate 18 /min Dr. Fredis Moon MD Work Phone: 3(388)981-319860 [place] [address] 06-14-2024 10:54-0400 SaO2% (BldA) [Mass fraction] 98 % Dr. Fredis Moon MD Work Phone: 7(131)978-758260 [place] [address] 06-14-2024 10:54-0400 Systolic blood pressure 139 mm[Hg] Dr. Fredis Moon MD Work Phone: 6(844)832-721729 [place] [address] 06-13-2024 10:00-0400 Body mass index (BMI) [Ratio] 32.8 kg/m2 Dr. Fredis Moon MD Work Phone: 4(559)257-432729 [place] [address] 06-13-2024 10:00-0400 Body weight 92.[address] Fredis Moon MD Work Phone: 4(301)441-592129 [place] [address] 06-07-2024 14:29-0400 Body height 167.[address] Fredis oMon MD Work Phone: 7(377)279-207329 [place] [address] 06-07-2024 14:29-0400 Body weight 91.[address] Fredis Moon MD Work Phone: 1(539)636-755329 [place] [address] 06-07-2024 08:31-0400 Heart rate 51 /min Dr. Fredis Moon MD Work Phone: 9(897)223-162429 [place] [address] 06-07-2024 08:26-0400 Body temperature 97.3 [degF] Dr. Fredis Moon MD Work Phone: 4(109)705-998529 [place] [address] 06-07-2024 08:26-0400 Diastolic blood pressure 74 mm[Hg] Dr. Fredis Moon MD Work Phone: 0(251)334-475129 [place] [address] 06-07-2024 08:26-0400 Respiratory rate 17 /min Dr. Fredis Moon MD Work Phone: 2(898)207-454529 [place] [address] 06-07-2024 08:26-0400 SaO2% (BldA) [Mass fraction] 95 % Dr. Fredis Moon MD Work Phone: 9(762)406-965229 [place] [address] 06-07-2024 08:26-0400 Systolic blood pressure 109 mm[Hg] Dr. Fredis Moon MD Work Phone: [facility] 06-06-2024 10:00-0400 Body mass index (BMI) [Ratio] 32.7 kg/m2 Dr. Fredis Moon MD Work Phone: [facility] 05-22-2024 22:00-0400 Diastolic blood pressure 55 mm[Hg] Dr. Fredis Moon MD Work Phone: [facility] 05-22-2024 22:00-0400 Heart rate 67 /min Dr. Fredis Moon MD Work Phone: [facility] 05-22-2024 22:00-0400 Systolic blood pressure 126 mm[Hg] Dr. Fredis Moon MD Work Phone: [facility] 05-22-2024 16:48-0400 Body mass index (BMI) [Ratio] 34.5 kg/m2 Dr. Fredis Moon MD Work Phone: [facility] 05-22-2024 16:48-0400 Body weight 97.[address] Fredis Moon MD Work Phone: [facility] 05-22-2024 15:30-0400 Body temperature 97 [degF] Dr. Fredis Moon MD Work Phone: [facility] 05-22-2024 15:30-0400 Respiratory rate 16 /min Dr. Fredis Moon MD Work Phone: [facility] 05-22-2024 15:30-0400 SaO2% (BldA) [Mass fraction] 97 % Dr. Fredis Moon MD Work Phone: [facility] 05-17-2024 12:54-0400 Body height 167.[address] Fredis Moon MD Work Phone: [facility] 05-16-2024 07:00-0400 Body mass index (BMI) [Ratio] 32.61 kg/m2 Daysi Velasco MD Work Phone: [facility] [employer] 05-16-2024 07:00-0400 Body weight 94.44 kg Daysi Velasco MD Work Phone: [employer] 05-16-2024 04:14-0400 Body temperature 97 [degF] Daysi Velasco MD Work Phone: [facility] [employer] 05-16-2024 04:14-0400 Diastolic blood pressure 49 mm[Hg] Daysi Velasco MD Work Phone: [employer] 05-16-2024 04:14-0400 Heart rate 66 /min Daysi Velasco MD Work Phone: [employer] 05-16-2024 04:14-0400 Respiratory rate 17 /min Daysi Velasco MD Work Phone: [facility] [employer] 05-16-2024 04:14-0400 SaO2% (BldA) [Mass fraction] 100 % Daysi Velasco MD Work Phone: [facility] [employer] 05-16-2024 04:14-0400 Systolic blood pressure 130 mm[Hg] Daysi Velasco MD Work Phone: [employer] 05-11-2024 08:32-0400 Body height 170.2 cm Daysi Velasco MD Work Phone: [facility] [employer] 05-11-2024 07:51-0400 SaO2% (BldA) [Mass fraction] 98.5 % Daysi Velasco MD Work Phone: [facility] [employer] 05-10-2024 22:27-0400 SaO2% (BldA) [Mass fraction] 98.2 % Daysi Velasco MD Work Phone: [employer] 05-10-2024 17:52-0400 SaO2% (BldA) [Mass fraction] 97.1 % Daysi Velasco MD Work Phone: [employer] [employer] 05-10-2024 14:12-0400 SaO2% (BldA) [Mass fraction] 98.5 % Daysi Velasco MD Work Phone: [employer] 05-10-2024 11:35-0400 SaO2% (BldA) [Mass fraction] 98.8 % Daysi Velasco MD Work Phone: [facility] 04-25-2024 11:46-0500 Diastolic blood pressure 68 mm[Hg] Daysi Velasco MD Work Phone: [facility] 04-25-2024 11:46-0500 Systolic blood pressure 151 mm[Hg] Daysi Velasco MD Work Phone: [facility] 04-25-2024 11:43-0500 Body height 169.5 cm Daysi Velasco MD Work Phone: [facility] 04-25-2024 11:43-0500 Body mass index (BMI) [Ratio] 32.98 kg/m2 Daysi Velasco MD Work Phone: [facility] 04-25-2024 11:43-0500 Body weight 94.8 kg Daysi Velasco MD Work Phone: [facility] 04-25-2024 11:43-0500 Heart rate 57 /min Daysi Velasco MD Work Phone: [facility] 04-24-2024 08:50-0500 Body weight 93.[address] Fredis Moon MD Work Phone: [facility] 04-24-2024 08:49-0500 Body mass index (BMI) [Ratio] 33.2 kg/m2 Dr. Fredis Moon MD Work Phone: [facility] 03-23-2024 08:09-0500 Body mass index (BMI) [Ratio] 34.3 kg/m2 Dr. Fredis Moon MD Work Phone: [facility] 03-23-2024 08:09-0500 Body weight 96.[address] Fredis Moon MD Work Phone: [facility] 03-23-2024 08:09-0500 Diastolic blood pressure 66 mm[Hg] Dr. Fredis Moon MD Work Phone: [facility] 03-23-2024 08:09-0500 Heart rate 63 /min Dr. Fredis Moon MD Work Phone: [facility] 03-23-2024 08:09-0500 Respiratory rate 18 /min Dr. Fredis Moon MD Work Phone: [facility] 03-23-2024 08:09-0500 Systolic blood pressure 118 mm[Hg] Dr. Fredis Moon MD Work Phone: 5(002)437-919360 [place] [address] 04-05-2023 14:27-0500 Body height 167.[address] Fredis Moon Work Phone: 9(643)841-551760 [place] [address] 04-05-2023 14:27-0500 Body mass index (BMI) [Ratio] 34.3 kg/m2 Dr. Fredis Moon Work Phone: 1(892)573-180260 [place] [address] 04-05-2023 14:27-0500 Body weight 96.[address] Fredis Moon Work Phone: 3(109)878-363729 [place] [address] 04-05-2023 14:27-0500 Diastolic blood pressure 71 mm[Hg] Dr. Fredis Moon Work Phone: 8(231)206-474960 [place] [address] 04-05-2023 14:27-0500 Heart rate 57 /min Dr. Fredis Moon Work Phone: 4(385)035-237060 [place] [address] 04-05-2023 14:27-0500 Respiratory rate 18 /min Dr. Fredis Moon Work Phone: 4(136)702-810460 [place] [address] 04-05-2023 14:27-0500 SaO2% (BldA) [Mass fraction] 99 % Dr. Fredis Moon Work Phone: [facility] 04-05-2023 14:27-0500 Systolic blood pressure 135 mm[Hg] Dr. Fredis Moon Work Phone: 2(628)978-861160 [place] [address] 12-30-2022 23:01-0500 Diastolic blood pressure 61 mm[Hg] Dr. Fredis Moon Work Phone: 9(749)841-481960 [place] [address] 12-30-2022 23:01-0500 Heart rate 60 /min Dr. Fredis Moon Work Phone: [facility] 12-30-2022 23:01-0500 Respiratory rate 15 /min Dr. Fredis Moon Work Phone: [facility] 12-30-2022 23:01-0500 SaO2% (BldA) [Mass fraction] 96 % Dr. Fredis Moon Work Phone: [facility] 12-30-2022 23:01-0500 Systolic blood pressure 132 mm[Hg] Dr. Fredis Moon Work Phone: [facility] 12-30-2022 20:27-0500 Body height 167.[address] Fredis Moon Work Phone: [facility] 12-30-2022 20:27-0500 Body mass index (BMI) [Ratio] 32.5 kg/m2 Dr. Fredis Moon Work Phone: [facility] 12-30-2022 20:27-0500 Body temperature 97.9 [degF] Dr. Fredis Moon Work Phone: 6(711)444-113160 [place] [address] 12-30-2022 20:27-0500 Body weight 91.[address] Fredis Moon Work Phone: [facility] 01-21-2022 14:21-0500 Body height 170.[address] Fredis Moon Work Phone: [facility] 01-21-2022 14:21-0500 Body mass index (BMI) [Ratio] 33 kg/m2 Dr. Fredis Moon Work Phone: [facility] 01-21-2022 14:21-0500 Body weight 95.[address] Fredis Moon Work Phone: [facility] 01-21-2022 14:21-0500 Diastolic blood pressure 68 mm[Hg] Dr. Fredis Moon Work Phone: [facility] 01-21-2022 14:21-0500 Heart rate 64 /min Dr. Fredis Moon Work Phone: [facility] 01-21-2022 14:21-0500 Respiratory rate 18 /min Dr. Fredis Moon Work Phone: [facility] 01-21-2022 14:21-0500 Systolic blood pressure 116 mm[Hg] Dr. Fredis Moon Work Phone: [facility] 05-29-2021 09:49-0400 Body temperature 97.81 [degF] Yoselin Khan APRN.HOME DEMONSTRATION AGENT Work Phone: [facility] 05-29-2021 09:49-0400 Body weight 91.44 kg Yoselin Khan APRN.HOME DEMONSTRATION AGENT Work Phone: [facility] 05-29-2021 09:49-0400 Diastolic blood pressure 74 mm[Hg] Yoselin Khan APRN.HOME DEMONSTRATION AGENT Work Phone: [facility] 05-29-2021 09:49-0400 Heart rate 59 /min Yoselin Khan APRN.HOME DEMONSTRATION AGENT Work Phone: [facility] 05-29-2021 09:49-0400 Respiratory rate 18 /min Yoselin Khan APRN.HOME DEMONSTRATION AGENT Work Phone: [facility] 05-29-2021 09:49-0400 SaO2% (BldA) [Mass fraction] 98 % Yoselin Khan APRN.HOME DEMONSTRATION AGENT Work Phone: [facility] 05-29-2021 09:49-0400 Systolic blood pressure 136 mm[Hg] Yoselin Khan APRN.HOME DEMONSTRATION AGENT Work Phone: [facility] 05-23-2021 11:24-0400 Body temperature 97.5 [degF] Alix Cummins-Robbie AVAYA ENGINEER.HOME DEMONSTRATION AGENT Work Phone: [facility] 05-23-2021 11:24-0400 Body weight 93.35 kg Alix Valle AVAYA ENGINEER.HOME DEMONSTRATION AGENT Work Phone: [facility] 05-23-2021 11:24-0400 Diastolic blood pressure 68 mm[Hg] Alix Cummins-Robbie AVAYA ENGINEER.HOME DEMONSTRATION AGENT Work Phone: [facility] 05-23-2021 11:24-0400 Heart rate 67 /min Alix Valle AVAYA ENGINEER.HOME DEMONSTRATION AGENT Work Phone: [facility] 05-23-2021 11:24-0400 Respiratory rate 18 /min Alix Placido-Robbie AVAYA ENGINEER.HOME DEMONSTRATION AGENT Work Phone: [facility] 05-23-2021 11:24-0400 SaO2% (BldA) [Mass fraction] 96 % Alix Klinecris-Robbie AVAYA ENGINEER.HOME DEMONSTRATION AGENT Work Phone: [facility] 05-23-2021 11:24-0400 Systolic blood pressure 118 mm[Hg] Alix Placido-Robbie AVAYA ENGINEER.HOME DEMONSTRATION AGENT Work Phone: [facility] 12-21-2016 13:02-0400 Body height 170.18 cm Rosendopololópez [...] 13:02-0400 Heart rate 60 /min Rosendotallópez Huerta [facility] Work Phone: 12-21-2016 13:02-0400 Respiratory rate 16 /min [facility] Work Phone: 12-21-2016 13:02-0400 Systolic blood pressure 110 mm[Hg] Hailey Huerta [facility] Work Phone: 05-14-2016 08:57-0400 Body height 170.18 cm Rosa Steven Work Phone: [facility] Work Phone: 05-14-2016 08:57-0400 Body mass index (BMI) [Ratio] 30.63 kg/m2 Rosa Parekhn Work Phone: [employer] Work Phone: 05-14-2016 08:57-0400 Body surface area Derived from formula 2 m2 Rosa Parekhn Work Phone: [employer] Work Phone: 05-14-2016 08:57-0400 Body temperature 98.3 [degF] Rosa Parekhn Work Phone: [employer] Work Phone: 05-14-2016 08:57-0400 Body temperature 98.29 [degF] Rosa Parekhn Work Phone: [employer] Work Phone: 05-14-2016 08:57-0400 Body weight 88.72 kg Rosa Harris Work Phone: [employer] Work Phone: 05-14-2016 08:57-0400 Diastolic blood pressure 67 mm[Hg] Rosa Parekhn Work Phone: [employer] Work Phone: 05-14-2016 08:57-0400 Heart rate 63 /min Rosa Parekhn Work Phone: [employer] Work Phone: 05-14-2016 08:57-0400 Respiratory rate 16 /min Rosa Parekhn Work Phone: [employer] Work Phone: 05-14-2016 08:57-0400 SaO2% (BldA) [Mass fraction] 96 % Rosa Parekhn Work Phone: [employer] Work Phone: 05-14-2016 08:57-0400 Systolic blood pressure 111 mm[Hg] Rosa Steven Work Phone: [employer] Work Phone: 05-14-2016 08:57-0400 Weight 88.72 kg Charity Landis RN [facility] Work Phone: Encounters Encounter Date Encounter Type Care Provider Facility Start: 11-22-2024 ambulatory [facility] Facility:[facility] Start: 10-02-2024 End: 10-02-2024 ambulatory [facility] [place]: 10-02-2024 End: 10-02-2024 Patient encounter procedure Wagner BROWN -[facility] Work Phone: Start: 10-02-[address] Daysi peoples MD -Cardiac Rehab Work Phone: Start: 09-29-2024 ambulatory [facility] Facility:[facility] Start: 09-20-2024 End: 09-21-[address] Fredis Moon MD Work Phone: -Cardiac Rehab Start: 09-20-2024 End: 09-21-[address] Daysi Velasco MD -Cardiac Rehab Work Phone: Start: 09-18-[address] Daysi peoples MD -Cardiac Rehab Work Phone: Start: 09-14-2024 ambulatory [facility] Facility:[facility] Start: 09-12-2024 End: 09-12-[address] Fredis Moon MD Work Phone: -Laboratory Specimen Start: 09-12-2024 End: 09-12-[address] Fredis Moon MD -Laboratory Specimen Work Phone: Start: 09-12-2024 End: 09-12-2024 ambulatory [facility] Facility:[facility] Start: 09-08-2024 End: 09-08-2024 Emergency department patient visit Dr. Fredis Moon MD Work Phone: -Emergency Department Work Phone: Start: 09-08-[address] Daysi peoples MD -Cardiac Rehab Work Phone: Start: 09-07-2024 End: 09-07-[address] Fredis Moon MD -Laboratory Work Phone: Start: 09-07-2024 End: 09-07-2024 ambulatory Ferdis Moon Facility:[facility] Start: 08-21-2024 End: 08-21-[address] Fredis Moon MD Work Phone: -Cardiac Rehab Start: 08-21-2024 End: 08-21-[address] Daysi Velasco MD -Cardiac Rehab Work Phone: Start: 07-24-2024 End: 07-24-2024 ambulatory Chante Hong [facility] Start: 07-21-2024 End: 07-22-[address] Fredis Moon MD Work Phone: [facility] Work Phone: Start: 07-21-2024 End: 07-22-[address] Daysi Velasco MD -Cardiac Rehab Work Phone: Start: 07-07-[address] Daysi peoples MD -Cardiac Rehab Work Phone: Start: 07-06-2024 End: 07-06-2024 Patient encounter procedure Mi BROWN -[facility] Work Phone: Start: 07-06-2024 End: 07-06-[address] Fredis Moon MD Work Phone: [facility] Work Phone: Start: 07-05-2024 End: 07-05-2024 Postop follow up visit related to original px Miguel Angel Handy AVAYA ENGINEER - HOME DEMONSTRATION AGENT Work Phone: 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 Daysi peoples MD -Cardiac Rehab Work Phone: Start: 07-04-2024 End: 07-04-[address] Fredis Moon MD Work Phone: [facility] Work Phone: Start: 07-04-2024 End: 07-04-[address] Daysi Velasco MD -Cardiac Rehab Work Phone: Start: 07-04-2024 End: 07-04-2024 ambulatory [facility] Facility:[facility] Start: 06-27-2024 End: 06-27-2024 ambulatory Chante Hong RN [facility] Start: 06-23-2024 End: 06-23-2024 Telephone encounter Daysi Velasco MD Work Phone: [facility] Thoracic Surgery [facility] Comment on above: Orders Start: 06-22-2024 End: 06-22-2024 ambulatory [facility]EL [facility] Start: 06-22-2024 End: 06-22-2024 Postop follow up visit related to original px Miguel Angel Handy AVAYA ENGINEER - HOME DEMONSTRATION AGENT Work Phone: [facility] Thoracic [facility] Comment on above: 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 Daysi hall MD -[facility] Start: 06-02-2024 End: 06-02-[address] Fredis Moon MD Work Phone: [facility] Work Phone: Start: 06-02-2024 End: 06-02-[address] Fredis Moon MD -Cardiovascular Services Work Phone: Start: 06-02-2024 End: 06-02-2024 ambulatory Fredis Moon Facility:[facility] Start: 05-25-2024 End: 05-25-2024 Postop follow up visit related to original px Miguel Angel Handy AVAYA ENGINEER - HOME DEMONSTRATION AGENT Work Phone: 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 Facility:[facility] Start: 05-18-2024 Non-patient / Non-visit Dr. Daysi hall MD -[facility] Start: 05-18-2024 End: 05-18-[address] Fredis Moon MD Work Phone: [facility] Work Phone: Start: 05-18-2024 End: 05-18-[address] Fredis Moon MD -Cardiovascular Services Work Phone: Start: 05-18-2024 End: 05-18-2024 ambulatory Fredis Moon Facility:[facility] Start: 05-16-2024 End: 06-14-2024 Evaluation and management of inpatient Dr. Fredis Moon MD -Transitional Care Unit Start: 05-10-2024 End: 05-16-2024 Encounter for other preprocedural examination [facility] Start: 05-10-2024 End: 05-16-2024 Evaluation and management of inpatient Daysi Velasco MD Work Phone: [facility] Cardiac Thoracic Vascular Intensive Care Unit CTV ICU T1 Start: 05-10-2024 End: 05-16-2024 Preoperative state Daysi Velasco MD Work Phone: 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 Samson bundy MD -[facility] Start: 04-24-2024 ambulatory Samson Esteban Facility:[facility] Start: 04-24-2024 End: 04-24-2024 Admission to same day surgery center Dr. Samson Elder MD -Quarter Supervisor/Special Procedures Work Phone: Start: 04-24-2024 End: 04-24-2024 ambulatory Samson Esteban Facility:[facility] Start: 04-21-2024 ambulatory Samson Esteban Facility:[facility] Start: 04-21-2024 Non-patient / Non-visit Corky Connolly -[facility] Start: 04-20-2024 Non-patient / Non-visit Dr. Samson bundy MD -[facility] Start: 04-20-2024 ambulatory Samson Elder Facility:[facility] Start: 04-17-2024 ambulatory Fredis Chi Red Facility:[facility] Start: 04-17-2024 Non-patient / Non-visit Dr. Dayis hall MD -[facility] Start: 04-17-2024 End: 04-17-[address] Samson Elder MD -Cardiovascular Services Work Phone: Start: 04-17-2024 End: 04-17-2024 ambulatory Fredis Chi Red Facility:[facility] Start: 03-23-2024 End: 03-23-[address] Samson Elder MD -[facility] Work Phone: Start: 03-23-2024 End: 03-23-2024 ambulatory Fredis Chi Red Facility:[facility] Start: 03-07-2024 End: 03-07-[address] Fredis Moon MD -Laboratory, Phy Office 3rd Flr Start: 03-07-2024 End: 03-07-2024 ambulatory Fredis Chi Red Facility:[facility] Start: 01-21-2024 End: 01-21-2024 ambulatory Fredis Chi Red Facility:[facility] Start: 12-13-2023 End: 12-13-2023 ambulatory Fredis Chi Red Facility:[facility] Start: 12-07-2023 End: 12-07-2023 ambulatory Fredis Chi Red Facility:[facility] Start: 06-02-2023 End: 06-02-[address] Fredis Moon Work Phone: [facility] Work Phone: Start: 06-02-2023 End: 06-02-[address] Fredis Moon Work Phone: [facility]-Radiology, [facility] Work Phone: Start: 06-01-2023 End: 06-01-[address] Fredis Moon Work Phone: [facility] Work Phone: Start: 06-01-2023 End: 06-01-[address] [facility] Start: 04-05-2023 End: 04-05-[address] Fredis Moon Work Phone: [facility] Work Phone: Start: 04-05-2023 End: 04-05-[address] Fredis Moon Work Phone: [facility] Work Phone: Start: 03-02-2023 End: 03-02-[address] Fredis Moon Work Phone: [facility] Work Phone: Start: 03-02-2023 End: 03-02-[address] [facility] Start: 01-15-2023 End: 01-15-[address] Fredis Moon Work Phone: [facility] Work Phone: Start: 01-15-2023 End: 01-15-[address] [facility]: Start: 12-30-2022 End: 12-30-2022 Emergency department patient visit Dr. Fredis Moon [facility] Work Phone: Start: 12-03-2022 Non-patient / Non-visit Dr. Mir Moon Work Phone: [facility] Start: 12-03-2022 End: 12-03-[address] Fredis Moon Work Phone: [facility] Work Phone: Start: 12-03-2022 End: 12-03-2022 [facility] Work [facility] Start: 11-30-2022 End: 11-30-2022 ambulatory [facility] Work Phone: Start: 11-30-2022 End: 11-30-2022 Patient encounter procedure [facility]-Laboratory Work Phone: Start: 08-27-2022 End: 08-27-2022 ambulatory [facility] Work Phone: Start: 08-27-2022 End: 08-27-2022 [facility] Start: 07-10-2022 End: 07-10-2022 ambulatory [facility] Work Phone: Start: 07-10-2022 End: 07-10-2022 Patient encounter procedure [facility]-Laboratory Start: 04-30-2022 End: 04-30-[address] Fredis Moon Work Phone: [facility] Work Phone: Start: 04-30-2022 End: 04-30-[address] Fred[facility] Start: 02-18-2022 End: 02-18-[address] Fredis Moon Work Phone: [facility]-Pulmonary Services/Neurology Start: 01-29-2022 End: 01-29-[address] Fred[facility] Start: 01-21-2022 End: 01-21-[address] Fredis Moon Work Phone: [facility] Start: 01-14-2022 End: 01-14-2022 ambulatory [facility] Work Phone: Start: 01-14-2022 End: 01-14-2022 Patient encounter procedure [facility]-Laboratory Start: 12-04-2021 End: 12-04-2021 ambulatory [facility] Work Phone: Start: 12-04-2021 End: 12-04-2021 Patient encounter procedure [facility]-Laboratory, Phy Office 3rd Flr Start: 10-30-2021 End: 10-30-2021 ambulatory [facility] Work Phone: Start: 10-30-2021 End: 10-30-2021 [facility] Start: 09-03-2021 End: 09-03-2021 Patient encounter procedure [facility]-Pulmonary Services/Neurology Start: 08-15-2021 End: 08-15-2021 [facility] Start: 07-11-2021 End: 07-11-2021 Patient encounter procedure [facility]-Laboratory Start: 05-29-2021 End: 05-29-2021 Patient encounter procedure Yoselin Khan APRN.HOME DEMONSTRATION AGENT Work Phone: [facility] Comment on above: Close exposure to [place] VID-19 virus (Primary Dx) Start: 05-23-2021 End: 05-23-2021 Patient encounter procedure Alix Valle APRN.HOME DEMONSTRATION AGENT Work Phone: [facility] Comment on above: Close exposure to [place] VID-19 virus (Primary Dx) Start: 05-14-2021 End: 05-14-2021 Patient encounter procedure [facility]-Pulmonary Services/Neurology Start: 05-12-2021 End: 05-12-2021 Patient encounter procedure [facility]-Laboratory, Phy Office 3rd Flr Start: 04-04-2021 End: 04-04-2021 Patient encounter procedure [facility]-Laboratory Start: 02-11-2021 [facility] Start: 01-20-2021 Patient encounter procedure [facility]-Sleep Lab Procedures Date Procedure Procedure Detail Performing [...] metabolic panel calcium total Miguel Angel Handy AVAYA ENGINEER - HOME DEMONSTRATION AGENT Work Phone: Start: 05-16-2024 Radiologic exam ches t single view Miguel Angel Handy AVAYA ENGINEER - HOME DEMONSTRATION AGENT Work Phone: Start: 05-15-2024 Glucose quantitative blood [...] exam ches t single view Miguel Angel Mieky Rozina AVAYA ENGINEER - HOME DEMONSTRATION AGENT Work Phone: Start: 05-15-2024 Basic metabolic pane l calcium total Miguel Angel Mikey Rozina AVAYA ENGINEER - HOME DEMONSTRATION AGENT Work Phone: Start: 05-14-2024 Glucose quantitative blood xcpt reagent strip Daysi Velasco MD Work Phone: Start: 05-14-2024 Glucose quantitative blood xcpt reagent strip Daysi Velasco MD Work Phone: Start: 05-14-2024 Glucose quantitative blood xcpt reagent strip Daysi Velasco MD Work Phone: Start: 05-14-2024 Radiologic exam ches t single view Miguel Angel Handy AVAYA ENGINEER - HOME DEMONSTRATION AGENT Work Phone: Start: 05-14-2024 Glucose quantitative blood xcpt reagent strip Daysi Velasco MD Work Phone: Start: 05-14-2024 Basic metabolic pane l calcium total Miguel Angel VickySp Handy AVAYA ENGINEER - HOME DEMONSTRATION AGENT Work Phone: Start: 05-13-2024 Glucose quantitative blood [...] t single view Miguel Angel VickySp Handy AVAYA ENGINEER - HOME DEMONSTRATION AGENT Work Phone: Start: 05-13-2024 Basic metabolic pane l calcium total Miguel Angel VickySp Handy AVAYA ENGINEER - HOME DEMONSTRATION AGENT Work Phone: Start: 05-12-2024 Glucose quantitative blood xcpt reagent strip Daysi Velasco MD Work Phone: Start: 05-12-2024 Glucose quantitative blood xcpt reagent strip Daysi Velasco MD Work Phone: Start: 05-12-2024 Glucose quantitative blood xcpt reagent strip Daysi Velasco MD Work Phone: Start: 05-12-2024 Radiologic exam ches t single view Miguel Angel Handy AVAYA ENGINEER - HOME DEMONSTRATION AGENT Work Phone: Start: 05-12-2024 Glucose quantitative blood xcpt reagent strip Daysi Velasco MD Work Phone: Start: 05-12-2024 Ecg routine ecg w/le ast 12 lds trcg only w/o i&r Miguel Angel Handy AVAYA ENGINEER - HOME DEMONSTRATION AGENT Work Phone: Start: 05-12-2024 Basic metabolic pane l calcium total Miguel Angel Handy AVAYA ENGINEER - HOME DEMONSTRATION AGENT Work Phone: Start: 05-11-2024 Glucose quantitative blood [...] pco2 po2 co2 hco3 Miguel Angel Handy AVAYA ENGINEER - HOME DEMONSTRATION AGENT Work Phone: Start: 05-11-2024 End: 05-11-2024 Glucose quantitative blood xcpt reagent strip Daysi Velasco MD Work Phone: Start: 05-11-2024 Radiologic exam ches t single view Miguel Angel Handy AVAYA ENGINEER [facility] Work Phone: Start: 05-11-2024 Ecg routine ecg w/le ast 12 lds trcg only w/o i&r Miguel Angel Handy AVAYA ENGINEER - HOME DEMONSTRATION AGENT Work Phone: Start: 05-11-2024 End: 05-11-2024 Basic metabolic panel calcium total Miguel Angel Handy AVAYA ENGINEER - HOME DEMONSTRATION AGENT Work Phone: Start: 05-11-2024 End: 05-11-2024 Glucose quantitative blood xcpt reagent strip Daysi Velasco MD Work Phone: Start: 05-11-2024 End: 05-11-2024 Coagj/fbrnlys assay whole blood additive per day Wagner Mathias DO Work Phone: Start: 05-11-2024 End: 05-11-2024 Blood count hematocrit Wagner Mathias DO Work Phone: Start: 05-10-2024 Blood gases any comb ination ph pco2 po2 co2 hco3 Miguel Angel Newrogerio AVAYA ENGINEER - HOME DEMONSTRATION AGENT Work Phone: Start: 05-10-2024 End: 05-10-2024 Glucose [...] po2 co2 hco3 Miguel Angel Mikey Rozina AVAYA ENGINEER - HOME DEMONSTRATION AGENT Work Phone: Start: 05-10-2024 End: 05-10-2024 Basic metabolic panel calcium total Miguel Angel Jensen Rozina AVAYA ENGINEER - HOME DEMONSTRATION AGENT Work Phone: Start: 05-10-2024 EXTUBATION Miguel Angel Louis AVAYA ENGINEER - HOME DEMONSTRATION AGENT Work Phone: Start: 05-10-2024 End: 05-10-2024 Glucose quantitative blood xcpt reagent strip Daysi Velasco MD Work Phone: Start: 05-10-2024 Comprehensive metabo lic panel Miguel Angel PerrySp Handy AVAYA ENGINEER - HOME DEMONSTRATION AGENT Work Phone: Start: 05-10-2024 Blood gases any comb ination ph pco2 po2 co2 hco3 Miguel Angel Jensen Rozina AVAYA ENGINEER - HOME DEMONSTRATION AGENT Work Phone: Start: 05-10-2024 Radiologic exam ches t single view Miguel Angel Mikey Rozina AVAYA ENGINEER - HOME DEMONSTRATION AGENT Work Phone: Start: 05-10-2024 Ecg routine ecg w/le ast 12 lds trcg only w/o i&r Miguel Angel VickySp Handy AVAYA ENGINEER - HOME DEMONSTRATION AGENT Work Phone: Start: 05-10-2024 Echo transesophag r- [...] exam ches t 2 views Azam Mcbride AVAYA ENGINEER - HOME DEMONSTRATION AGENT Work Phone: Start: 05-04-2024 Antibody screen DAYSI KIRK RENALDO Comment on above: Performed By: #### L [id number] ####Nurse Discharge Planner: DANIELLA PEREZ ([phone])[facility] BLOOD [facility] ([address] Start: 04-21-2024 X-ray of chest, PA [...] (coronary artery bypass graft) Miguel Angel Handy AVAYA ENGINEER [employer] Work Phone: History of coronary artery bypass grafting S/P CABG (coronary artery bypass graft) Miguel Angel Handy AVAYA ENGINEER [employer] Work Phone: History of coronary artery bypass grafting S/P CABG (coronary artery bypass graft) Daysi Velasco MD Work Phone: History of coronary artery bypass grafting S/P CABG (coronary artery bypass graft) Miguel Angel Handy AVAYA ENGINEER [employer] Work Phone: End: 02-23-2024 History of coronary artery 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 Fredis Moon MD Urine culture Plan of Treatment Date Care Activity Detail Author Start: 07-31-2025 Depression Screening Depression Screening [facility] Start: 05-16-2025 Diabetes: Estimated Glomerular Filtration Rate for Kidney Health Diabetes: Estimated Glomerular Filtration Rate for Kidney Health [facility] Start: 05-16-[address] [facility] Start: 05-04-2025 Diabetes: Estimated Glomerular Filtration Rate for [facility] Health Diabetes: Estimated Glomerular Filtration Rate for Kidney Health [facility] Start: 10-23-2024 Influenza vaccination Influenza Vaccine (Season Ended) [facility] Start: 09-08-2024 [facility] Start: 09-08-2024 [facility] Start: 07-05-2024 End: 07-05-2024 Telemedicine consultation with patient 07/05/2024 1:30 PM EDT Telemedicine [facility] Thoracic Surgery - [place] [address] [place] [id number] Miguel Angel Handy APRN - HOME DEMONSTRATION AGENT [address] [address] [place] [address] [facility] Cardiovascular Thoracic Surgery - [place] Start: 06-14-2024 Patient discharge [facility] Start: 06-13-2024 Development of care plan [facility] Start: 06-10-2024 Patient discharge [facility] Start: 06-07-2024 Referral to service [facility] Start: 06-05-2024 [facility] Start: 06-05-2024 Recommendation to continue with treatment [facility] Start: 05-25-2024 End: 05-25-[address] [facility] Cardiovascular Thoracic Surgery [facility] Start: 05-25-2024 [facility] Start: 05-23-2024 Speech therapy management [facility] Start: 05-23-2024 Measurement of occult blood in stool specimen using immunoassay [facility] Start: 05-22-2024 Speech therapy assessment [facility] Start: 05-22-2024 [facility] Start: 05-17-2024 Development of care plan [facility] Start: 05-17-2024 Developing a treatment plan [facility] Start: 05-17-2024 End: 05-17-2024 [facility] Start: 05-17-2024 End: 05-17-2024 Administration of blood product [facility] Start: 05-16-2024 Speech therapy assessment [facility] Start: 05-16-2024 Verification routine [facility] Start: 05-16-2024 Provision of activity privileges [facility] Start: 05-16-2024 End: 05-16-2024 [facility] Start: 05-16-2024 Wound care [facility] Start: 05-16-2024 Admission procedure [facility] Start: 05-16-2024 Introduction of urinary catheter [facility] Start: 05-16-2024 Measuring intake and output [facility] Start: 05-16-2024 End: 05-17-2024 Patient referral to dietitian [facility] Start: 05-16-2024 Referral to occupational therapist [facility] Start: 05-16-2024 Referral to service [facility] Start: 05-16-2024 Vital signs measurements [facility] Start: 05-16-2024 Application of elastic bandage [facility] Start: 05-16-2024 Continuous positive airway pressure ventilation treatment [facility] Start: 05-16-2024 [facility] Start: 05-10-2024 End: 05-10-2024 Admission to same day surgery center 05/10/2024 7:30 AM EDT - 05/10/2024 12:30 PM EDT Surgery [facility] MA[facility] OR [address] [place] [phone] Daysi Velasco MD [address] [place] [address], [address] [place] [address] CORONARY ARTERY BYPASS GRAFT [37374 (CPT )] [facility] Comment on above: CORONARY ARTERY BYPASS GRAFT [22690 (CPT )] Start: 05-10-2024 End: 05-10-2024 Anesthesia consultation 05/10/2024 7:30 AM EDT Anesthesia Event [facility] [address] [place] [id number] Gale Garcia, AVAYA ENGINEER - HOME DEMONSTRATION AGENT [address] [place] [address] [facility] Start: 05-10-2024 End: 05-10-2024 [...] [facility] [address] [place] [address] Daysi Velasco MD [address], [address] [place] [address] [facility] Start: 05-04-2024 End: 05-04-2024 Admission to establishment 05/04/2024 11:00 AM EDT Pre-Admission Testing [facility] Pre-Admit Testing [address] [place] [phone] [facility] Start: 04-24-2024 Patient referral [facility] Work Phone: Start: 04-24-2024 Patient discharge [facility] Start: 10-24-2023 COVID-19 Vaccine ( season) COVID-19 Vaccine ( season) [facility] Start: 10-24-2023 COVID-19 Vaccine ( season) COVID-19 Vaccine ( season) [facility] Start: 10-24-2023 Influenza vaccination Influenza Vaccine (#1) [facility] Start: 10-24-[address] [facility] Start: 12-30-2022 [facility] Start: 05-29-2021 End: 06-12-2021 Influenza virus A and B RNA and SARS-CoV-2 (COVID-19) N gene panel - Respiratory specimen by BRIAN with probe detection COVID WITH FLUA+B, ROUTINE Microbiology Routine Close exposure to COVID-19 virus Expected: 05/29/2021, Expires: 06/12/2021 [facility] Work Phone: Comment on above: Expected: 05/29/2021, Expires: 2 Start: 05-23-2021 End: 06-02-2021 SARS-CoV-2 (COVID-19) RNA [Presence] in Respiratory specimen by BRIAN with probe detection [facility] Work Phone: Comment on above: Expected: 05/23/2021, Expires: 2 Start: 02-22-2021 ADVANCE DIRECTIVE DISCUSSION ADVANCE DIRECTIVE DISCUSSION [facility] Start: 04-05-2019 Zoster Vaccines (2 of 2) Zoster Vaccines (2 of 2) [facility] [employer] Start: 04-05-2019 [facility] [employer] Start: 12-20-2017 End: 12-20-2017 Patient encounter procedure Appointment [facility] Work Phone: Start: 2017 RSV Immunization for Adults (1 - 1-dose 75+ series) RSV Immunization for Adults (1 - 1-dose 75+ series) [facility] [employer] Start: 12-21-2016 End: 12-21-2016 Appointment Appointment [facility] Work Phone: Start: 12-21-2016 End: 12-21-2016 Follow Up Appt 1 year Follow Up Appt 1 year [employer] [facility] Work Phone: Start: 12-21-2016 End: 12-21-2016 PFM PFM [facility] Work Phone: Start: 12-20-2015 End: 12-20-2015 Ecg routine ecg w/least 12 lds w/i&r EKG (In office) [facility] Work Phone: Start: 12-20-2015 End: 12-20-2015 Echocardiography Echocardiogram (complete) [facility] Work Phone: Start: 12-20-2015 End: 12-20-2015 Follow Up Appt 1 year Follow Up Appt 1 year [facility] Work Phone: Start: 12-20-2015 End: 12-20-2015 Nuclear stress test -exercise Nuclear stress test -exercise [employer] [employer] Work Phone: Start: 12-20-2015 End: 12-20-2015 PFM PFM [facility] Work Phone: Start: 12-20-2015 End: 12-20-2015 Ecg routine ecg w/least 12 lds w/i&r EKG (In office) [facility] Work Phone: Start: 12-20-2015 End: 12-20-2015 Echocardiography Echocardiogram (complete) [employer] Work Phone: Start: 12-20-2015 End: 12-20-2015 Follow Up Appt 1 year Follow Up Appt 1 year [place] [employer] [facility] Work Phone: Start: 12-20-2015 End: 12-20-2015 Nuclear stress test -exercise Nuclear stress test -exercise [place] [facility] Work Phone: Start: 12-20-2015 End: 12-20-2015 PFM [facility] Work Phone: Start: 11-21-2014 End: [...] w/least 12 lds w/i&r EKG (In office) [employer] [facility] Work Phone: Start: 11-21-2014 End: 11-21-2014 Follow Up Appt 1 year Follow Up Appt 1 year [place] [employer] [facility] Work Phone: Start: 11-21-2014 End: 11-21-2014 [facility] Work Phone: Start: 05-07-2014 End: 05-07-2014 Follow Up Appt 6 months Follow Up Appt 6 months [facility] Work Phone: Start: 05-07-2014 End: 05-07-2014 PFM PFM [facility] Work Phone: Start: 05-07-2014 End: 05-07-2014 Follow Up Appt 6 months Follow Up Appt 6 months [place] [employer] [facility] Work Phone: Start: 05-07-2014 End: 05-07-2014 [facility] Work Phone: Start: 11-06-2013 End: 11-06-2013 Follow Up Appt 6 months Follow Up Appt 6 months [facility] Work Phone: Start: 11-06-2013 End: 11-06-2013 MM MM [facility] Work Phone: Start: 11-06-2013 End: 11-06-2013 Follow Up Appt 6 months Follow Up Appt 6 months [place] [employer] [facility] Work Phone: Start: 11-06-2013 End: 11-06-2013 [facility] [employer] [facility] Work Phone: Start: 05-15-2013 End: 05-15-2013 24 hour holter monitor 24 hour holter monitor [facility] Work Phone: Start: 05-15-2013 End: 05-15-2013 Follow Up Appt 6 months Follow Up Appt 6 months [facility] Work Phone: Start: 05-15-2013 End: 05-15-2013 [facility] Work Phone: Start: 05-15-2013 End: 05-15-2013 24 hour holter monitor 24 hour holter monitor [employer] [facility] Work Phone: Start: 05-15-2013 End: 05-15-2013 Follow Up Appt 6 months Follow Up Appt 6 months [place] [employer] [facility] Work Phone: Start: 05-15-2013 End: 05-15-2013 [facility] Work Phone: Start: 01-20-2013 Hepatitis B screening URINE ALBUMIN:CREATININE RATIO [facility] Start: 01-20-2013 Hepatitis B surface antibody level LDL CHOLESTEROL [facility] Start: 10-06-2012 End: 10-06-2012 24 hour holter monitor 24 hour holter monitor [facility] Work Phone: Start: 10-06-2012 End: 10-06-2012 Ecg routine ecg w/least 12 lds w/i&r EKG (In office) [facility] Work Phone: Start: 10-06-2012 End: 10-06-2012 Echocardiography Echocardiogram (complete) [facility] Work Phone: Start: 10-06-2012 End: 10-06-2012 Follow Up Appt 6 months Follow Up Appt 6 months [facility] Work Phone: Start: 10-06-2012 End: 10-06-2012 Nuclear stress test -exercise Nuclear stress test -exercise [facility] Work Phone: Start: 10-06-2012 End: 10-06-2012 PFM PF [facility] Work Phone: Start: 10-06-2012 End: 10-06-2012 24 hour holter monitor 24 hour holter monitor [employer] Work Phone: Start: 10-06-2012 End: 10-06-2012 Ecg routine ecg w/least 12 lds w/i&r EKG (In office) [employer] Work Phone: Start: 10-06-2012 End: 10-06-2012 Echocardiography Echocardiogram (complete) [employer] Work Phone: Start: 10-06-2012 End: 10-06-2012 Follow Up Appt 6 months Follow Up Appt 6 months [employer] Work Phone: Start: 10-06-2012 End: 10-06-2012 Nuclear stress test -exercise Nuclear stress test -exercise [employer] Work Phone: Start: 10-06-2012 End: 10-06-2012 PFM PFM [employer] Work Phone: Start: 07-20-2012 Hemoglobin A1c/Hemoglobin.total in Blood HBA1C [facility] Start: 01-07-2012 Hepatitis C antibody, confirmatory test DILATED RETINAL EXAM [facility] Start: 2007 PNEUMOVAX AGE 65 AND OVER WITH 5YR LOOKBACK (#1) PNEUMOVAX AGE 65 AND OVER WITH 5YR LOOKBACK (#1) [facility] Start: 1992 SHINGRIX VACCINE (1 of 2) SHINGRIX VACCINE (1 of 2) [facility] Start: 1992 Zoster Vaccines (1 of 2) Zoster Vaccines (1 of 2) [facility] Start: 1961 DTaP/Tdap/Td Vaccines (1 - Tdap) DTaP/Tdap/Td Vaccines (1 - Tdap) [facility] Start: 1961 Pneumococcal Vaccine: 50+ Years (1 of 2 - PCV) Pneumococcal Vaccine: 50+ Years (1 of 2 - PCV) [facility] Start: 1961 Urine microalbumin profile DTAP,TDAP,TD (1 - Tdap) [facility] Start: [address] [facility] Start: 1960 ANNUAL PCP TEAM CHRONIC DISEASE VISIT ANNUAL PCP TEAM CHRONIC DISEASE VISIT [facility] Start: 1960 Diabetes: Estimated Glomerular Filtration Rate for Kidney [facility] Diabetes: Estimated Glomerular Filtration Rate for Kidney Health [facility] Start: 1960 Diabetes: Urine Albumin-Creatinine Ratio for Kidney Health Diabetes: Urine Albumin-Creatinine Ratio for Kidney Health [facility] Start: [address] [facility] Start: 1954 Adult depression screening assessment DEPRESSION SCREENING [facility] Start: [address] [facility] Start: 1952 3 comp foot exam completed DIABETIC FOOT EXAM [facility] Start: 1942 Medicare Annual Wellness (AWV) Medicare Annual Wellness (AWV) [facility] Start: [address] [facility] Anion gap in Serum o r Plasma [facility] Anion gap in Serum o r Plasma [facility] Anion gap in Serum o r Plasma [facility] Anion gap in Serum o r Plasma [facility] BUN/Creatinine ratio [facility] BUN/Creatinine ratio [facility] BUN/Creatinine ratio [facility] BUN/Creatinine ratio [facility] Calcium [Mass/volume ] in Serum or Plasma [facility] Calcium [Mass/volume ] in Serum or Plasma [facility] Calcium [Mass/volume ] in Serum or Plasma [facility] Calcium [Mass/volume ] in Serum or Plasma [facility] Carbon dioxide, tota l [Moles/volume] in Central venous blood [facility] Carbon dioxide, tota l [Moles/volume] in Central venous blood [facility] Carbon dioxide, tota l [Moles/volume] in Central venous blood [facility] Carbon dioxide, tota l [Moles/volume] in Central venous blood [facility] Catheterization of l eft heart [facility] CBC W Auto Different ial panel - Blood [facility] Comprehensive metabo lic 2000 panel - Serum or Plasma [facility] Creatinine [Mass/vol ume] in Serum or Plasma [facility] Creatinine [Mass/vol ume] in Serum or Plasma [facility] Creatinine [Mass/vol ume] in Serum or Plasma [facility] Creatinine [Mass/vol ume] in Serum or Plasma [facility] Erythrocyte mean corpuscular volume determination [facility] Erythrocyte mean corpuscular volume determination [facility] Erythrocyte mean corpuscular volume determination [facility] Erythrocyte mean corpuscular volume determination [facility] Glucose [Mass/volume ] in Serum or Plasma [facility] Glucose [Mass/volume ] in Serum or Plasma [facility] Glucose [Mass/volume ] in Serum or Plasma [facility] Glucose [Mass/volume ] in Serum or Plasma [facility] Hematocrit [Volume Fraction] of Blood [facility] Hematocrit [Volume Fraction] of Blood [facility] Hematocrit [Volume Fraction] of Blood [facility] Hematocrit [Volume Fraction] of Blood [facility] Hemoglobin [Mass/vol ume] in Blood [facility] Hemoglobin [Mass/vol ume] in Blood [facility] Hemoglobin [Mass/vol ume] in Blood [facility] Hemoglobin [Mass/vol ume] in Blood [facility] Leukocytes [#/volume ] in Blood [facility] Leukocytes [#/volume ] in Blood [facility] Leukocytes [#/volume ] in Blood [facility] Leukocytes [#/volume ] in Blood [facility] Lipid 1996 panel - S trae or Plasma [facility] Mean corpuscular hemoglobin concentration determination [facility] Mean corpuscular hemoglobin concentration determination [facility] Mean corpuscular hemoglobin concentration determination [facility] Mean corpuscular hemoglobin concentration determination [facility] Mean corpuscular hemoglobin determination [facility] Mean corpuscular hemoglobin determination [facility] Mean corpuscular hemoglobin determination [facility] Mean corpuscular hemoglobin determination [facility] Measurement of renal function [facility] Measurement of renal function [facility] Measurement of renal function [facility] Measurement of renal function [facility] Neutrophil count [facility] Neutrophil count [facility] Neutrophil count [facility] Neutrophil count [facility] Neutrophil percent differential count [facility] Neutrophil percent differential count [facility] Neutrophil percent differential count [facility] Neutrophil percent differential count [facility] Patient Education [facility] [employer] Work Phone: Patient referral [facility] Work Phone: Platelets [#/volume] in Blood [facility] Platelets [#/volume] in Blood [facility] Platelets [#/volume] in Blood [facility] Platelets [#/volume] in Blood [facility] Potassium measurement [facility] Potassium measurement [facility] Potassium measurement [facility] Potassium measurement [facility] End: 05-10-2024 Prothrombin time (PT) in Blood by Coagulation assay [facility] [employer] Work Phone: Red blood cell count [facility] Red blood cell count [facility] Red blood cell count [facility] Red blood cell count [facility] Red cell distributio n width determination [facility] Red cell distributio n width determination [facility] Red cell distributio n width determination [facility] Red cell distributio n width determination [facility] Serum chloride measurement [facility] Serum chloride measurement [facility] Serum chloride measurement [facility] Serum chloride measurement [facility] Sodium measurement [facility] Sodium measurement [facility] Sodium measurement [facility] Sodium measurement [facility] Urea nitrogen [Mass/volume] in Serum or Plasma [facility] Urea nitrogen [Mass/volume] in Serum or Plasma [facility] Urea nitrogen [Mass/volume] in Serum or Plasma [facility] Urea nitrogen [Mass/volume] in Serum or Plasma [facility] Immunizations Immunization Date Immunization Notes Care Provider [facility] 01-07-2024 Pneumococcal Vaccine PCV20 (Prevnar 20) Dr. Fredis Moon MD Work Phone: [facility] 11-24-2023 RSV Adult Recombinan t (Arexvy) Dr. Fredis Moon MD Work Phone: [facility] 12-29-2022 RSV Adult Recombinan t (Arexvy) Dr. Fredis Moon MD Work Phone: [facility] 12-02-2022 influenza virus vaccine, unspecified formulation Ach [address] [facility] 12-17-2020 COVID-19 vaccine, fu ll dose (MODERNA) Yoselin Khan AVAYA ENGINEER.HOME DEMONSTRATION AGENT Work Phone: [facility] 03-05-2008 influenza virus vaccine, unspecified formulation Alix Valle AVAYA ENGINEER.HOME DEMONSTRATION AGENT Work Phone: [facility] Work Phone: Payers Date Payer Category Payer Medicare [id number] 2023 Self-pay [id number] 2021 Medicare supplementa l policy (as second payer) [id number] 2021 [facility] [id number] 2016 Private Health Insurance [id number] 2007 Medicare [id number] 2007 Medicare [id number] 2007 Medicare MEDICARE MEDICAR E A AND B [id number] 2007-Present [phone] [address] [address] [place] [address] Medicare [id number] Unknown [id number] Unknown [id number] 2.16.840.1.384205.3.579.2. 462 Unknown [id number] 2.16.840.1.090506.3.579.2. 462 Unknown [id number] 2.16.840.1.170510.3.579.2. 462 Unknown [id number] 2.16.840.1.476874.3.579.2. 462 Unknown [id number] 2.16.840.1.064324.3.579.2. 462 Unknown [id number] 2.16.840.1.949148.3.579.2. 462 Unknown [id number] 2.16.840.1.683101.3.579.2. 462 Unknown [id number] 2.16.840.1.173391.3.579.2. 462 Unknown [id number] 2.16.840.1.255001.3.579.2. 462 Unknown [id number] 2.16.840.1.551174.3.579.2. 462 Unknown [id number] 2.16.840.1.715433.3.579.2. 462 Unknown [id number] 2.16.840.1.946311.3.579.2. 462 Unknown [id number] 2.16.840.1.044499.3.579.2. 462 Unknown [id number] 2.16.840.1.811923.3.579.2. 462 Unknown [id number] 2.16.840.1.761301.3.579.2. 462 Unknown [id number] 2.16.840.1.267027.3.579.2. 462 Unknown [id number] 2.16.840.1.901535.3.579.2. 462 Unknown [id number] 2.16.840.1.446722.3.579.2. 462 Unknown [id number] 2.16.840.1.636287.3.579.2. 462 Unknown [id number] 2.16.840.1.962262.3.579.2. 462 Unknown [id number] 2.16.840.1.997553.3.579.2. 462 Unknown [id number] 2.16.840.1.931442.3.579.2. 462 Unknown [id number] 2.16.840.1.917932.3.579.2. 462 Unknown [id number] 2.16.840.1.195900.3.579.2. 462 Unknown [id number] 2.16.840.1.585051.3.579.2. 462 Unknown [id number] 2.16.840.1.324907.3.579.2. 462 Unknown [id number] 2.16.840.1.584707.3.579.2. 462 Unknown [id number] 2.16.840.1.822950.3.579.2. 462 Unknown [id number] 2.16.840.1.801730.3.579.2. 462 Unknown [id number] 2.16.840.1.260441.3.579.2. 462 Unknown [id number] 2.16.840.1.242859.3.579.2. 462 Social History Date Type Detail Facility Start: 01-06-2021 End: 04-05-2023 Tobacco smoking status NVIS Unknown if ever smoked [facility] Start: 1940 Sex Assigned At Male [facility] Start: 05-04-2024 End: 09-08-2024 Tobacco smoking status NHIS Ex-smoker [facility] Start: 05-23-2021 End: 05-29-2021 Alcohol intake Current non-drinker of alcohol (finding) [facility] Start: 1940 Sex Assigned At Not on file [facility] Start: 05-13-2021 End: 05-23-2021 Exposure to SARS-CoV-2 (event) Yes [facility] Work Phone: Start: 05-19-2021 End: 05-29-2021 Exposure to SARS-CoV-2 (event) Not sure [facility] Work Phone: Start: 02-12-2013 None [facility] Start: 02-12-2013 With Family [facility] Start: 07-15-2017 Cigarettes [facility] Start: 04-25-2024 Tobacco smoking stat [facility] Never smoked tobacco [facility] [employer] Start: 04-25-2024 End: 05-04-2024 Tobacco use and exposure Smokeless tobacco non-user [facility] [employer] Start: 04-25-2024 End: 07-05-2024 Alcoholic beverage intake Lifetime non-drinker (finding) [facility] [employer] Start: 04-25-2024 End: 07-31-2024 History of Social function [facility] [employer] Work Phone: Start: 04-25-2024 End: 07-31-2024 Tobacco use panel [facility] [employer] Work Phone: Start: 04-24-2024 End: 06-08-2024 Sex Male (finding) [facility] [employer] Start: 02-22-1962 History of tobacco use Current smoke r [facility] [employer] Start: 02-22-1962 History of tobacco use Cigarette Smo ker [facility] Has the [employer], oil, or water company threatened to shut off services in your home in past 12Mo No [facility] [employer] Work Phone: How often to you hav e a drink containing alcohol? Never [facility] [employer] How many standard drinks containing alcohol do you have on a typical day? Patient does not drink [facility] [employer] How hard is it for y ou to pay for the very basics like food, housing, medical care, and heating Not very hard [facility] Do you feel stress - tense, restless, nervous, or anxious, or unable to sleep at night because your mind is troubled all the time - these days [OSQ] Only a little [facility] (I/We) worried wheth er (my/our) food would run out before (I/we) got money to buy more. Never true [facility] Are you now , , , , never or living with a partner? [facility] Medical Equipment Procedure Code Equipment Code Equipment Origin al Text Equipment Identifier Dates INSULIN PEN NEEDLE Start: 05-15-2011 End: 10-06-2012 Comment on above: CHECK BLOOD SUGARS 3 -4 TIMES DAILY CLIP,HEMADALIDSTUART RINALDI Platypus Platform FDA Start: 07-14-2017 CLIP,HEMADALIDSTUART RINALDI Platypus Platform FDA Start: 07-14-2017 CLIP,HEMADALIDSTUART RINALDI WE FDA Start: 07-14-2017 CLIP,HEMADALIDSTUART WE FDA Start: 07-14-2017 CLIP,HEMADALIDSTUART Platypus Platform FDA Start: 07-14-2017 CLIP,HEMADALIDSTUART RINALDI Platypus Platform FDA Start: 07-14-2017 CLIP,HEMADALIDSTUART WE FDA Start: 07-14-2017 CLIP,HEMADALIDSTUART Platypus Platform FDA Start: 07-14-2017 CLIP,HEMADALIDSTUART LG WE FDA Start: 07-14-2017 CLIP,HEMADALIDSTUART RINALDI WE FDA Start: 07-14-2017 CLIP,HEMADALIDSTUART RINALDI WE [...] Patient Health Questionnaire 2 item (PHQ-2) [Reported] [facility] 07-31-2024 Total score [AUDIT-C] 0 08/01/19 2:43 PM EDT Lilliana Reed LISW [facility] 06-14-2024 Functional status Bedrest [facility] Work Phone: 06-07-2024 Functional status Chair [facility] Work Phone: 06-03-2024 Functional status Tolerates Activity Well [facility] Work Phone: 05-22-2024 Functional status Chair [facility] Work Phone: 05-21-2024 Functional status Tolerates Activity Well [facility] Work Phone: [facility] Mental Status Date Assessment Result Facility 09-08-2024 Cognitive function Voice/Name [facility] Work Phone: 06-14-2024 Cognitive function Voice/Name [facility] Work Phone: 06-13-2024 Cognitive function Demonstrates ability to follow instructions/comprehend [facility] Work Phone: 06-07-2024 Cognitive function Voice/Name [facility] Work Phone: 06-05-2024 Cognitive function Demonstrates ability to follow instructions/comprehend [facility] Work Phone: 05-22-2024 Cognitive function Voice/Name [facility] Work Phone: 05-19-2024 Cognitive function Demonstrates ability to follow instructions/comprehend [facility] Work Phone: Clinical Notes 05-14-2016 to 10-02-2024 Note Date & Type Note Facility 10-02-2024 Progress note [facility] 10-02-2024 Progress note Note Date/Time October 02, 2024 12:25pm [facility] [place] [facility] [address] [place] [address] OFFICE VISIT Date of Service: 10/02/24 MR#: [id number] Acct: [id number] Name: Joaquin THRASHER Rep #: [id number] : 1940 Provider: KEVIN Regalado Age/Sex: 84/M [place] [facility] 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 Cardiac catheterization: 06/24/2001: [facility] FINAL IMPRESSION: 1. 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 transplanted heart: apache heart Diastolic dysfunction I51.89 Mixed hyperlipidemia E78.2 Carotid artery disease I77.9 Anemia D64.9 Type 2 diabetes mellitus with hyperglycemia E11.65 Coding Level of Care Code Off vis,est,level 4 Diagnoses Atherosclerosis of apache coronary artery of apache heart without angina pectoris I25.10 [place] vs. transplanted heart: apache heart Diastolic dysfunction I51.89 Mixed hyperlipidemia E78.2 Carotid artery disease I77.9 Anemia D64.9 Type 2 diabetes mellitus with hyperglycemia E11.65 Clinical Quality Measures Falls Risk Screening/Assistive Devices Have you fallen in the past year?: Yes (3- tripped d/t neuropathy.) Cardiac Ejection fraction %: 65 10/02/24 1225 <Electronically signed by Wagner BORWN> Date _ Wagner BROWN Cosigner Signature: Date (if applicable) CC: Dr. Montana Jones MD; Dr. Fredis Moon MD ~ [facility] Work Phone: [phone]) [phone] Discharge summary [facility] Medical Records Department [address] [place] [address] Emergency Department Summary 09/08/24 MR#: [id number] Acct: [id number] Name: Joaquin THRASHER Rep #:[id number] : 1940 84 From: Tiara Clayton [...] get cannula and reposition therapy with Dr. Mejisa. He states his head feels full of [...] for mild nausea and fullness inhis head. 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 Reading Location: [facility] Rhythm Strip Rhythm Strip: Sinus Rhythm Rate: [...] return to the emergency room. Print Language: Serbian Disposition Disposition: Home, Self Care What to do if you have Problems For any increased pain, shortness of breath, bleeding, nausea or vomiting, chestpain, or any unexpected problems, contact your Primary Care Provider. Call [facility] ([phone]) or report tothe closest Emergency Room. Call 911 if necessary. 09/08/24 1322 Cosigner Signature (if applicable): CC: Dr. Fredis Moon MD ~ Signed [facility]07-18-2025 Radiology Diagnostic study note [facility] Imaging Services [address] [place] [address] Chest PA and Lateral MR#: [id number] Acct: [id number] Name: Joaquin THRASHER Rep #: [id number] : 1940 M 84 From: Danis Lopez DO PCP: Dr. Fredis Moon MD Status: REG E R Study:Chest PA and Lateral Date of Exam: 09/08/24 Exam# [id number] Ordering Dr: Yni Alston DO PROCEDURE: CHEST PA AND LATERAL [...] vascular disease of the aorta. Reading Location: [id number] CC: Dr. Tiara Alston DO; Dr. Fredis Moon MD ~ Compound Finisher: Signed [facility]06-09-2025 Note07/31/2024: Reviewed EMR. Outreach made to Marcus. Verified he received the HCAP application. Marcus shared appreciation and relief that at this time, his medical bills are manageable. Noted his balance per epic at this time is $0. Marcus reviewed he has hired someone to help install grab bars and is exploring reimbursement for this through [employer]. Updated the SDOH assessment today. Marcus shared strong familial support as well as neighbors and caodaism family who are helpful and reach out [...] Critical Care unit. Will reach out to [facility]. Support provided. Marcus shared appreciation for his level of recovery. Follow up outreach scheduled with goal of completing the SDOH assessment. 06/22/2024 Reviewed EMR prior to today's outreach. [facility] for [facility]. BPCI call made to Mr. Marcus Thrasher. Introduced self and reviewed role on [facility]'s BPCI team. Verified Marcus is able and agreeable to speak today. Assessed for needs or concerns. Marcus shared he lives in [place] with his . He identified having a [...] Formal supports: none at this time Insurance: Medicare/[employer] Advance Directives: not on file MyChart: active [...] GDMT for CABG. Able to discharge to [facility] on POD#06. 06/08/2024: Referral received from Chante Hong RNCM with the BPCI program, with request to update the social determinants of health questionnaire and assess for any social work needs. Outreach scheduled.[facility]06-02-2025 History of Present illness Narrative* Chante Hong RN - 07/24/2024 2:22 PM EDT 07/24/24 1421 BPCI Late Drop? Program late drop? No BPCI Outreach Assessment Selection Which outreach assessment are you completing? 60 Day [facility] - 60 Day Outreach Did patient answer phone call? No Do you have any concerns with your medication(s)? No Any complications with post discharge services? No (Patient has been going to Cardiac Rehab ([place]) for 3 weeks now) Any concerns with your DME equipment? No Any questions about your condition you are unsure about that I can help clarify? Yes (Discussed progress made and patient going to Cardiac Rehab. Discussed medications, medical bills- emailed patient HCAP application.) * Chante Hong RN - 07/24/2024 2:02 PM EDT [facility] 60 day outreach ADMIT DATE: 05/10/2024 DISCHARGE [...] of the patient qualifying for HCAP. Email: [email or web address]-this RN will email the patient the HCAP application for [facility]. Discussed grab bars in the shower- the patient stated he has the grab bars but needs to arrange forsomeone to do that- patient stated he knows people who can do it through his caodaism. Discussed medications- no refills needed at this time. Overall the patient is doing and feeling well. The patient stated he plans on walking more to increase his exercise and learned how important itis to keep moving at Cardiac Rehab. Scheduled [facility] 90 day outreach (90 day closure 08/14/24). * Chante Hong RN - 07/24/2024 2:02 PM EDT 90 day BPCI outreach made by CHANTEL Tijerina 07/31/24. Ending BPCI program-complete. documented in this [facility]06-02-2025 Note90 day BPCI outreach made by CHANTEL Tijerina 07/31/24. Ending BPCI program-complete.[facility]06-02-2025 NoteBPCI 60 day outreach ADMIT DATE: [...] of the patient qualifying for HCAP. Email: [email or web address]-this RN will email the patient the HCAP application for [facility]. Discussed grab bars in the shower- the patient stated he has the grab bars but needs to arrange for someone to do that- patient stated he knows people who can do it through his caodaism. Discussed medications- no refills needed at this time. Overall the patient is doing and feeling well. The patient stated he plans on walking more to increase his exercise and learned how important it is to keep moving at Cardiac Rehab. Scheduled BPCI 90 day outreach (90 day closure 08/14/24).[facility] 07-05-2024 History of Present illness Narrative* Miguel Angel Handy APRN - HEBER - 07/05/2024 1:30 PM EDT Images from the original note were not included. [facility] Medical Group: [facility] [employer] [facility] [address] [facility] [address] Dept: [phone] Dept Loc: [phone] Visit type: Established patient Reason for Visit: [...] circumstances: Recently seen in person, lives in [place] . The patient has been advised of [...] problems, and seek emergency medical treatment and/or [id number] if the patient deems either necessary. The patient stated that they are currently in the [facility]. If the patient is a minor, permission [...] redirect to the Timeline version of the [employer]. There were no vitals filed for this visit. Wt Readings from Last 3 Encounters: 06/22/24 207 lb (93.9 kg) 05/16/24 208 lb 3.2 oz (94.4 kg) 05/04/24 211 lb (95.7 kg) Physical exam deferred due to virtual visit-with audio (telephone) capabilities only. Data Reviewed and Summarized Labs/Imaging/Testing: reviewed EMR, see A&P for pertinent diagnostic results related to office visit Miguel Angel Handy, AVAYA ENGINEER - HOME DEMONSTRATION AGENT [1] Allergies Allergen Reactions Rosuvastatin Other Reaction(s): [...] a CPAP at bedtime documented in this [facility]05-06-2025 History of Present illness Narrative* Chante Hong [...] with endarterectomy), JUDY, RAYMOND with Dr. Velasco [facility]: FELICIA, Parkinson's disease, CAD, HTN, DM2 Called [phone] and spoke to the patient. The patient is active with home care: PT, OT, SN-homecare through [facility] services. Patient stated overall he is doing well. Went over follow up appts with the patient: 07/05 Cardiothoracic Surgery Patient stated he seen PCP Patient asked about restrictions post surgery- patient will discuss with Miguel Angel at office visit on 07/05/24. [place] [facility]-patient heard from them and he [...] check on the patient. documented in this encounterSNewark [id number] Telephone encounter Note* Telephone Encounter - Leeanna Anderson - 06/23/2024 11:44 AM EDT [id number] Miscellaneous Notes* Telephone Encounter - Leeanna Anderson - 06/23/2024 11:44 AM EDT Order sent to [facility]. * Telephone Encounter - Leeanna M Monica - 06/23/2024 11:35 AM EDT Orders Placed This Encounter Procedures [facility] Cardiac/Pulmonary Rehab Standing Status: Future Standing Expiration Date: 12/24/2024 Referral Priority: Routine Referral Type: Consultation Referral Reason: Specialty Services Required Requested Specialty: Cardiac Rehabilitation Number of Visits Requested: 1 documented in this encounterSNewark [id number] NoteOrders Placed This Encounter Procedures [facility] Cardiac/Pulmonary Rehab Standing Status: Future Standing Expiration Date: 12/24/2024 Referral Priority: Routine Referral Type: Consultation Referral Reason: Specialty Services Required Requested Specialty: Cardiac Rehabilitation [facility] Telephone encounter Note* Telephone Encounter - Leeanna M Monica - 06/23/2024 11:35 AM EDT Orders Placed This Encounter Procedures [facility] Cardiac/Pulmonary Rehab Standing Status: Future Standing Expiration Date: 12/24/2024 Referral Priority: Routine Referral Type: Consultation Referral Reason: Specialty Services Required Requested Specialty: Cardiac Rehabilitation Number of Visits Requested: [address] [facility] [address] [id number] Note06/22/2024 Reviewed EMR prior to today's outreach. Noted [facility]. [facility] Plan for [facility] Rehab. BPCI call made to Mr. Marcus Thrasher. Introduced self and reviewed role on [facility]'s BPCI team. Verified Marcus is able and agreeable to speak today. Assessed for needs or concerns. Marcus shared he lives in [place] with his . He identified having a [...] GDMT for CABG. Able to discharge to [facility] on POD#06. 06/08/2024: Referral received from LIZZIE Brand with the BPCI program, with request to update the social determinants of health questionnaire and assess for any social work needs. Outreach scheduled.[facility]05-01-2025 History of Present illness Narrative* Miguel Angel Handy, TARYN - HOME DEMONSTRATION AGENT - 06/22/2024 11:00 AM EDT Images from the original note were not included. [facility] Medical Group: [facility] [employer] [address] [facility] [address] Dept: [phone] Dept Loc: [phone] Visit type: Established patient Reason for Visit: Post-op Assessment and Plan 1. S/P CABG (coronary artery bypass graft) - [facility] Cardiac/Pulmonary Rehab 05/10/24: s/p CABGx3 (PADILLA-LAD, [...] redirect to the Timeline version of the [employer] Smart[employer]. Vitals: 06/22/24 1118 BP: 129/67 Pulse: [...] related to office visit Miguel Angel Handy, AVAYA ENGINEER - HOME DEMONSTRATION AGENT documented in this [facility]04-22-2025 Note06/13/24 1022 BPCI Late Drop? Program late drop? No BPCI Outreach Assessment Selection Which outreach assessment are you completing? 30 Day BPCI - 30 Day Outreach Did patient answer phone call? [facility]04-22-2025 NoteBPCI 30 day outreach ADMIT DATE: 05/10/2024 DISCHARGE DATE: 05/16/2024 SURGERY: 05/10/24: s/p CABGx3 (PADILLA-LAD, RSVG-OM1, RSVG-PDA with endarterectomy), JUDY, RAYMOND with Dr. Velasco PM: FELICIA, Parkinson's disease, CAD, HTN, DM2 EMR reviewed. CM spoke to the patient last week- patient was at [facility] with plans to discharge home soon. Chart reviewed for BPCI outreach. Phone call to patient, no answer, left VM to please return call. Will follow up for next BPCI outreach. Scheduled BPCI PRN call to check on the patient since home from rehab.[facility] 06-08-2024 Note06/08/2024: Referral received from LIZZIE Brand with the BPCI program, with request to update the social determinants of health questionnaire and assess for any social work needs. Outreach scheduled.[facility]04-15-2025 [facility]04-15-2025 NoteBPCI 21 day outreach ADMIT DATE: 05/10/2024 DISCHARGE DATE: 05/16/2024 SURGERY: 05/10/24: s/p CABGx3 (PADILLA-LAD, RSVG-OM1, RSVG-PDA with endarterectomy), JUDY, RAYMOND with Dr. Velasco PM: FELICIA, Parkinson's disease, CAD, HTN, DM2 Called and spoke to the patient. The patient reports he feels well in general and the patient remains at [facility] Acute Rehab. The patient stated he may [...] and report to Cardiology. The patient sees Corporation Secretary in [place]. DM2 Patient reports facility is checking his [...] outreach. Sending referral to CHANTEL Tijerina for eval.[facility]04-08-2025 Note 05/30/24 0933 BPCI Late Drop? Program late drop? No BPCI Outreach Assessment Selection Which outreach assessment are you completing? 14 Day BPCI - 14 Day Outreach Did patient answer phone call? [facility]04-08-2025 NoteBPCI 14 day outreach ADMIT DATE: 05/10/2024 DISCHARGE DATE: 05/16/2024 SURGERY: 05/10/24: s/p CABGx3 (PADILLA-LAD, RSVG-OM1, RSVG-PDA with endarterectomy), LEVH, RAYMOND with Dr. Velasco EMR reviewed. The patient had Telemedicine visit with Cardiothoracic Surgery 05/25/24. Chart reviewed for BPCI outreach. Phone call to patient, no answer, left VM to please return call. Will follow up for next BPCI outreach. Scheduled BPCI 21 day outreach.[facility]04-03-2025 History of Present illness Narrative* Miguel Angel Handy, TARYN - HOME DEMONSTRATION AGENT - 05/25/2024 1:00 PM EDT Images from the original note were not included. [facility] Medical Group: [facility] [employer] [address] [facility] [address] Dept: [phone] Dept Loc: [phone] Visit type: Established patient Reason for Visit: [...] by agreement and consent. I used the followingMirego technology: Audio capability only. Total length of call 20 minutes. The patient was offered and advised video for a more comprehensive evaluation, but the patient declined or was unable touse video. Patient location: [place] Patient Location: Rehab . This patient encounter is appropriate andreasonable under the circumstances: Currently at [facility] . The patient has been advised of [...] stated that they are currently in the [facility]. If the patientis a minor, permission has [...] GDMT for CABG. Able to discharge to [facility] on POD#06. 05/25/24: Spoke with patient and [...] redirect to the Timeline version of the [employer]. There were no vitals filed for [...] visit TARYN Kraft CNP documented in this [place] [address]-01-2025 Note05/23/24 1116 BPCI Late Drop? Program late drop? No BPCI Outreach Assessment Selection Which outreach assessment are you completing? 7 Day BPCI - 7 Day Outreach Did patient answer phone call? [facility]04-01-2025 NoteBPCI 7 day outreach ADMIT DATE: 05/10/2024 [...] for next BPCI outreach-scheduled 14 day BPCI outreach.[facility]03-28-2025 Note05/19/24 1112 BPCI Late Drop? Program late drop? No BPCI Outreach Assessment Selection Which outreach assessment are you completing? 72 Hour BPCI - 72 Hour Outreach Did patient answer phone call? [facility]03-28-2025 NoteBPCI 72 hour outreach ADMIT DATE: 05/10/2024 [...] next BPCI outreach. Scheduled BPCI 7 day outreach.[facility]03-25-2025 [facility] 05-16-2024 Evaluation note* Diagnosis Onset Date [...] 2024 9:56am 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 July 06, 2024 9 :56am Carotid artery disease chronic Ma 2024 9:56am Diastolic dysfunction chronic July 06, 2024 9:56am Mixed hyperlipidemia chronic July 06, 2024 9:56am [facility] Work Phone: 1(196) 559-456103-25-2025 Evaluation note* Diagnosis Onset Date Resolution Status [...] 2024 9:56am 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 July 06, 2024 9 :56am Carotid artery disease chronic Ma y 2024 9:56am Diastolic dysfunction chronic July 06, 2024 9:56am Mixed hyperlipidemia chronic July 06, 2024 9:56am Anemia acute October 02, 2 025 11:28am Type 2 diabetes mellitus wit h hyperglycemia acute October 02 11:28am 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 October 02 11:28am Carotid artery disease chronic Au zofia 2024 11:28am Diastolic dysfunction chronic Sep ust 2024 11:28am Mixed hyperlipidemia chronic Augu st 2024 11:28am [facility] Work Phone: 1(183) 436-249603-25-2025 NoteBPCI Referral Received notification that the patient [...] GDMT for CABG. Able to discharge to [facility] on POD#06.[facility]03-25-2025 History of Present illness Narrative* TARYN [...] Will continue to monitor. * Abi Rios, DISH UP PERSON - 05/16/2024 8:41 AM EDT Images from the original note were not included. PHYSICAL THERAPY [facility] Treatment Note Name/MRN: Marcus Thrasher ([id number]) Date of : 1940 Age: 84 y.o. [...] original note were not included. PHYSICAL THERAPY [facility] Treatment Note Name/MRN: Marcus Thrasher ([id number]) Date of : 1940 Age: 84 y.o. [...] Treatment Minutes: 27 Minutes (tp; gait) Abi Riso DISH UP PERSON Cosigned by Eufemia Murillo, PT at 05/15/2024 10:25 AM EDT * Jasmyn Mcnally, AVAYA ENGINEER - HOME DEMONSTRATION AGENT - 05/15/2024 8:52 AM EDT Department of Internal Medicine Division of Endocrinology, Diabetes, & Metabolism Endocrinology Note Patient Name: Farhana Thrasher : 1940 AGE: 84 y.o. Room/Bed: T1116/T1-116 A Admission Date: 05/10/2024 Visit Date: 05/15/2024 Reason for Endocrine Consult: post op heart Provider/Team Requesting Consult: CTS PCP: KELSEY MOON MD Outpt Wedger Machine: No ASSESSMENT: DM2 with hyperglycemia and watermaster insulin Stress hyperglycemia CABGX3 HLD/CAD Obesity Body [...] found for: CHOLHDLRATIO No results found for: [id number] No results found for: TSH, S7XPCOS, N3UTFFS, THYROIDAB Radiology reportsas per the Radiologist Radiology: POCT glucose meter Result Date: 05/10/2024 Performed by: [facility], [address] [place] [address] CLIA ID: [id number] POCT glucose meter Result Date: 05/10/2024 Performed by: [facility], [address] [place] [id number] CLIA ID: [id number] History/Other: Past Medical History: Past Medical History: [...] note. * Miguel Angel Handy APRN - HOME DEMONSTRATION AGENT - 05/15/2024 8:20 AM EDT Images from the original note were not included. Cardiothoracic Surgery/[facility] Progress Note PATIENT NAME: Farhana Thrasher DATE: [...] of 22 minutes were spent between the apjp-cy-mavw encounter, physical exam, reviewing the medical history, coordinating the patient's care, counseling/educating the patient, ordering medications/test/procedures, interpreting results and documenting clinical information in the patients electr onic health record on the day of the encounter. The patient was seen and examined. Cardiac Core Medications: ASA, Statin, and BB EF: 55% (RAYMOND 05/10/24) Blood Conservation: [employer] Corporation Secretary: Dr. Elder Cosigned by Luis Parisi DO [...] Consult: CTS PCP: KELSEY MOON MD Outpt Wedger Machine: No ASSESSMENT: DM2 with hyperglycemia and retirement insulin Stress hyperglycemia CABGX3 HLD/CAD Obesity Body [...] found for: CHOLHDLRATIO No results found for: [id number] No results found for: TSH, O6FFNVO, T7GKGUP, THYROIDAB Radiology reportsas per the Radiologist Radiology: POCT glucose meter Result Date: 05/10/2024 Performed by: [facility], [address] [place] [address] CLIA ID: [id number] POCT glucose meter Result Date: 05/10/2024 Performed by: [facility], [address] [place] [address] CLIA ID: [id number] History/Other: Past Medical History: Past Medical History: [...] date of this note. * Carter Le, AVAYA ENGINEER - HOME DEMONSTRATION AGENT - 05/14/2024 11:37 AM EDT Images from the original note were not included. Cardiothoracic Surgery/[facility] Progress Note PATIENT NAME: Farhana Thrasher DATE: [...] of 20 minutes were spent between the gmxr-dp-nxth encounter, physical exam, reviewing the medical history, [...] EF: 55% (RAYMOND 05/10/24) Blood Conservation: [employer] Secretary: Dr. Elder Cosigned by Luz Hough DO at 05/14/2024 2:29 PM EDT Associated attestation - Luz Hough DO - 05/14/2024 2:29 PM EDT I have personally performed a nerp-mt-emvo diagnostic evaluation on this patient on date of service05/14/24. History, labs, imaging studies, and electronic medical record have been reviewed by me. This note documented by the []housekeeping attendant [x]JULIO CESAR reflects my history, exam, and [...] home early this week * Carter Le, AVAYA ENGINEER - HOME DEMONSTRATION AGENT - 05/13/2024 10:12 AM EDT Images from the original note were not included. Cardiothoracic Surgery/[facility] Progress Note PATIENT NAME: Farhana Thrasher DATE: [...] of 21 minutes were spent between the ehox-iz-efdm encounter, physical exam, reviewing the medical history, [...] EF: 55% (RAYMOND 05/10/24) Blood Conservation: [employer] Secretary: Dr. Elder Cosigned by Luz Hough DO at 05/13/2024 12:21 PM EDT Associated attestation - Luz Hough DO - 05/13/2024 12:21 PM EDT I have personally performed a bqau-kc-sucs diagnostic evaluation on this patient on date of service05/13/24. History, labs, imaging studies, and electronic medical record have been reviewed by me. This note documented by the []housekeeping attendant [x]JULIO CESAR reflects my history, exam, and [...] Consult: CTS PCP: KELSEY MOON MD Outpt Wedger Machine: No ASSESSMENT: DM2 with hyperglycemia and watermaster insulin Stress hyperglycemia CABGX3 HLD/CAD Obesity Body [...] found for: CHOLHDLRATIO No results found for: [id number] No results found for: TSH, G8ZZALW, Z9TFJLZ, THYROIDAB Radiology reportsas per the Radiologist Radiology: POCT glucose meter Result Date: 05/10/2024 Performed by: [facility], [address] [place] [id number] CLIA ID: [id number] POCT glucose meter Result Date: 05/10/2024 Performed by: [facility], [address] [place] [address] CLIA ID: [id number] History/Other: Past Medical History: Past Medical History: [...] note. * Miguel Angel Handy, TARYN - HOME DEMONSTRATION AGENT - 05/12/2024 1:17 PM EDT Images from [...] original note were not included. PHYSICAL THERAPY [facility] Treatment Note Name/MRN: Marcus Thrasher ([id number]) Date of : 1940 Age: 84 y.o. [...] 6-9 x5 reps due to fatigue IS: 0768-7866 mL x5 reps Acapella: x5 reps Plan [...] & tp) Sosa Alfred, SPTA Sravani Arguello, DISH UP PERSON Cosigned by Moses Biggs, PT at 05/12/2024 12:53 PM EDT * Jasmyn Mcnally, AVAYA ENGINEER - HOME DEMONSTRATION AGENT - 05/12/2024 9:08 AM EDT Department of Internal Medicine Division of Endocrinology, Diabetes, & Metabolism Endocrinology Note Patient Name: Farhana Thrasher : 1940 AGE: 84 y.o. [facility] Admission Date: 05/10/2024 Visit Date: 05/12/2024 Reason for Endocrine Consult: post op heart Provider/Team Requesting Consult: CTS PCP: KELSEY MOON MD Outpt Wedger Machine: No ASSESSMENT: DM2 with hyperglycemia and retirement insulin Stress hyperglycemia CABGX3 HLD/CAD Obesity Body [...] found for: CHOLHDLRATIO No results found for: [id number] No results found for: TSH, K9SVGMY, F2UEVJA, THYROIDAB Radiology reportsas per the Radiologist Radiology: POCT glucose meter Result Date: 05/10/2024 Performed by: [facility], [address] [place] [address] CLIA ID: [id number] POCT glucose meter Result Date: 05/10/2024 Performed by: [facility], [address] [place] [address] CLIA ID: [id number] History/Other: Past Medical History: Past Medical History: [...] patient. In addition, I have reviewed the resident's/MEDICAL TECHNOLOGIST MICROBIOLOGY/RD SCIENTIST's care plan and agree with those findings [...] imaging are reviewed as detailed in the resident's/MEDICAL TECHNOLOGIST MICROBIOLOGY/RD SCIENTIST's note * Miguel Angel Handy, AVAYA ENGINEER - HOME DEMONSTRATION AGENT - 05/12/2024 7:10 AM EDT Images from the original note were not included. Cardiothoracic Surgery/[facility] Progress Note PATIENT NAME: Farhana Thrasher DATE: [...] PAP at night. Weaned off of pressors, [place] removed. Pain tolerable, up walking with nursing. [...] EF: 55% (RAYMOND 05/10/24) Blood Conservation: [employer] Secretary: Dr. Elder Cosigned by Luz Hough DO at 05/12/2024 3:54 PM EDT Associated attestation - Luz Hough DO - 05/12/2024 3:54 PM EDT I have personally performed a uozm-js-wsil diagnostic evaluation on this patient on date of service05/12/24. History, labs, imaging studies, and electronic medical record have been reviewed by me. This note documented by the []housekeeping attendant [x]JULIO CESAR reflects my history, exam, and [...] original note were not included. PHYSICAL THERAPY [facility] Initial Evaluation Name/MRN: Marcus Thrasher ([id number]) Evaluation Date: 05/11/2024 Date of : 1940 [...] Problem List Diagnosis Date Noted CAD in apache artery 05/10/2024 FELICIA (obstructive sleep apnea) 05/04/2024 [...] of Care supervision is transferred to a [facility] Physical Therapist. Goals and/or treatment plan was established in collaboration with patient/family/other representatives. * Stacey Llanos OT - 05/11/2024 11:13 AM EDT Images from the original note were not included. OCCUPATIONAL THERAPY [facility] Initial Evaluation Name/MRN: Marcus Thrasher ([id number]) Evaluation Date: 05/11/2024 Date of : 1940 [...] Problem List Diagnosis Date Noted CAD in apache artery 05/10/2024 FELICIA (obstructive sleep apnea) 05/04/2024 [...] 06/08/24 Therapy Time Individual Co-Treatment Co-Evaluation Time 7842-3005 AND 9286-1146 Minutes 42 (Timed treatment minutes: 25 (2-FA)) Patient's Occupational Therapy Plan of Care supervision is transferred to a [facility] Occupational Therapist. Goals and/or treatment plan was established in collaboration with patient/family/other representatives. Stacey Llanos OTR/L * Jasmyn Mcnally, AVAYA ENGINEER - HOME DEMONSTRATION AGENT - 05/11/2024 9:01 AM EDT Department of Internal Medicine Division of Endocrinology, Diabetes, & Metabolism Endocrinology Note Patient Name: Farhana Thrasher : 1940 AGE: 84 y.o. Room/Bed: T1-116/T1-116 A Admission Date: 05/10/2024 Visit Date: 05/11/2024 Reason for Endocrine Consult: post op heart Provider/Team Requesting Consult: CTS PCP: KELSEY MOON MD Outpt Wedger Machine: No ASSESSMENT: DM2 with hyperglycemia and retirement insulin Stress hyperglycemia CABGX3 HLD/CAD Obesity Body [...] found for: CHOLHDLRATIO No results found for: QINB27XOH No results found for: TSH, L3KQMWN, N2UBCDH, THYROIDAB Radiology reportsas per the Radiologist Radiology: POCT glucose meter Result Date: 05/10/2024 [facility], [address] [place] [address] CLIA ID: [id number] POCT glucose meter Result Date: 05/10/2024 [facility]: [facility], [address] [place] [address] CLIA ID: [id number] History/Other: Past Medical History: Past Medical History: [...] patient. In addition, I have reviewed the resident's/MEDICAL TECHNOLOGIST MICROBIOLOGY/RD SCIENTIST's care plan and agree with those findings [...] imaging are reviewed as detailed in the resident's/MEDICAL TECHNOLOGIST MICROBIOLOGY/RD SCIENTIST's note * Miguel Angel Handy, TARYN - HOME DEMONSTRATION AGENT - 05/11/2024 6:55 AM EDT Images from the original note were not included. Cardiothoracic Surgery/[facility] Progress Note PATIENT NAME: Farhana Thrasher DATE: [...] or diaphoretic. Neck: Comments: Central line and [place]. Cardiovascular: Rate and Rhythm: Normal rate and [...] anemia/consumptive thrombocytopenia Plan: Patient status: ICU Remove [place]. Wean levophed as able, goal MAP>65. -Remove [...] EF: 55% (RAYMOND 05/10/24) Blood Conservation: [employer] Secretary: Dr. Elder Cosigned by Luz Hough DO at 05/11/2024 5:59 PM EDT Associated attestation - Luz Hough DO - 05/11/2024 5:59 PM EDT I have personally performed a jpew-cu-lyhq diagnostic evaluation on this patient on date of service05/11/24. History, labs, imaging studies, and electronic medical record have been reviewed by me. This note documented by the []housekeeping attendant [x]JULIO CESAR reflects my history, exam, and [...] issues receiving the product for transfusion at *93040 ([facility]) or *28362 ([facility]) Comment: Close clinical monitoring is indicated to [...] Calle RCP - 05/10/2024 3:19 PM EDT [facility] Respiratory Care Department Progress Note Spontaneous Awakening [...] 05/10/24 1105 05/10/24 1347 PHART 7.352 7.313* ODZ1RZZ 43.0 39.5 PO2ART 387.1* 177.8* QUP0VAJ 23.3 19.6* F3KDXGBC Ventilator Ventilator Does this patient meet criteria for termination of mechanical ventilation Yes- Notified physician below Name of physician notified via secure chat or in person : nurse (NA if patient did not meet criteria) Comments: Thank you for involving Respiratory in the care of this patient, documented in this [facility]03-25-2025 Nurse Note* Clara Romero RN - 05/16/2024 10:24 AM EDT Report called to Danny Dailey. documented in this [facility]03-25-2025 NoteDischarge Summary: Cardiothoracic Surgery Farhana Thrasher, 84 y.o., 1940 ADMIT DATE: 05/10/2024 DISCHARGE DATE: 05/16/2024 VISIT STATUS: Admission CODE STATUS: Full Code DISCHARGING SURGEON: Daysi Velasco MD, Office Number: [phone] DISCHARGE DIAGNOSES: CAD s/p CABG T2DM, A1c [...] TEAM: Primary Care Physician: KELSEY MOON MD Corporation Secretary: Dr. Elder SURGERY: 05/10/24: s/p CABGx3 (PADILLA-LAD, RSVG-OM1, RSVG-PDA with endarterectomy), LEVH, RAYOMND with Dr. Velasco HOSPITAL COURSE: 84 y.o. [...] GDMT for CABG. Able to discharge to [facility] on POD#06. DIAGNOSTICS: BP (!) 130/49 (BP [...] % ointment Commonly known (more content not included)...[facility] [id number] Hospital course Narrative* Miguel Angel Handy, AVAYA ENGINEER - HOME DEMONSTRATION AGENT - 05/16/2024 10:11 AM EDT Images from the original note were not included. Discharge Summary: Cardiothoracic Surgery Farhana Thrasher, 84 y.o., 1940 ADMIT DATE: 05/10/2024 DISCHARGE DATE: 05/16/2024 VISIT STATUS: Admission CODE STATUS: Full Code DISCHARGING SURGEON: Daysi Velasco MD, Office Number: [phone] DISCHARGE DIAGNOSES: CAD s/p CABG T2DM, A1c [...] TEAM: Primary Care Physician: KELSEY MOON MD Corporation Secretary: Dr. Elder SURGERY: 05/10/24: s/p CABGx3 (PADILLA-LAD, RSVG-OM1, RSVG-PDA with endarterectomy), LEVH, RAYMOND with Dr. Velasco [facility] COURSE: 84 y.o. male referred by [...] GDMT for CABG. Able to discharge to [facility] on POD#06. DIAGNOSTICS: BP (!) 130/49 (BP [...] UP: 05/25/24 at 01:00PM, phone call. [address] [id number] Dept: [phone] Dept CORE CARDIAC MEDICATIONS PRESCRIBED AT DISCHARGE: [...] 05/16/2024 12:26 PM EDT documented in this [facility]03-25-2025 Hospital Discharge instructions* Discharge Instructions* TARYN Clark CNP - 05/16/2024 9:58 AM EDT Images from the original note were not included. [facility]: Cardiothoracic Surgery [address] [place] [address] #[phone] Notify us if the following occur - [...] Emergency Contact: Yousif Thrasher Mobile Relation: Spouse Open End Spinning Operator needed? No Past Surgical History: Past Surgical History: Procedure Laterality Date CATARACT EXTRACTION Bilateral CHOLECYSTECTOMY PILONIDAL CYST EXCISION PROSTATECTOMY TONSILLECTOMY Immunization History: Immunization History Administered Date(s) Administered COVID-19, mRNA, LNP-S, PF, 50 mcg/0.5 mL 12/29/2022 Covid-19, Moderna Bivalent Booster, (Age 6y-11y) 09/01/2022 Moderna SARS-CoV-2 Vaccination 04/04/2020, 05/01/2020 Active Problems: Medical Problems Problem List * (Principal) CAD in apache artery FELICIA (obstructive sleep apnea) History of [...] Minimal assistance Toileting Minimal assistance Feeding Independent Hr Specialist Independent Med Delivery yes Wound Care Documentation [...] Date: 05/10/24 Discharging to Facility/ Agency Name: [facility] Address: [address] [place], [place] [address] [address] Fax: Dialysis Facility (if applicable) Name: Address: Dialysis Schedule: Phone: Fax: Commuter Train Operator/Crowd Controller signature: ICIAN SECTION Name: Farhana Thrasher Prognosis: good Condition at Discharge: stable Rehab Potential (if transferring to Rehab): good Recommended Labs or Other Treatments After Discharge: BMP to monitor creatinine and electrolytes daily. Lasix and K supplement. GIANNA wraps to BLE. PT/OT. The individual is being admitted to a nursing facility directly from an [facility] or a unit of a [facility] that is not operated by or licensed by [facility] under section 5119.14 or 5160-3-15.1 5 The [...] GDMT for CABG. Able to discharge to [facility] on POD#06. PHYSICIAN SIGNATURE: Wound care/dressing changes: [...] visit to be scheduled once Dc'd from [facility]. [address] [place] [address] documented in this [facility]03-25-2025 Miscellaneous Notes* Care Coordination - Prema Chilel RN - 05/16/2024 9:33 AM EDT Received call from Licha at [facility] that they are able to accept patient. Requested discharge order, completed LAURA and transportation be set up. * Care Coordination - ALVARADO Villavicencio - 05/16/2024 9:26 AM EDT CHANTEL arranged transport through [facility] to [facility] at 11:00 am. TCC, RN, Facility, Veneer Taping Machine Offbearer, Pt and Pt's spouse notified. * Care [...] EDT CHANTEL reached out to Licha at [facility]. Licha stated that she just received [...] AM EDT Referral placed to MICHELINE - [facility] via [facility] per TCC request. Await review and response regarding ability to accept. TCC notified. * Care Coordination - Unknown Case Management - 05/15/2024 10:02 AM EDT Patient Choice Patient Name: FARHANA THRASHER Date of : 1940 All Providers Sent Referral Name: [facility] Address: [address] [place] [address] * Care Coordination - Prema Chilel RN - 05/15/2024 9:49 AM EDT Care Management Progress Note Patient remains in ICU s/p CABG x 3 05/10. PT recommending IPR. Discussion had with Patient, Spouse and AQUATIC FACILITY MANAGER at the bedside regarding Rehab. Patient is requesting a referral to [facility]. Referral requested to [facility] in [facility]. Length of Stay (Days): 5 [...] Intraoperative transesophageal echocardiography Surgeon: Daysi Velasco MD Brick Kiln Burner(s): [] Yesenia Taylor [] Gladis Melgar [x] [...] protected. An appropriate timeout was conducted. [facility] [place] [facility] of Cardiopulmonary Bypass: A LEFT [...] proceeded with closure. The sternum was reapproximated htfzyo-wd-rblez wires and the overlying tissues were closed in multiple layers. The patient was transported to the intensive care unit in serious but stable condition. documented in this [facility]03-24-2025 NoteSW reached out to Licha at [facility]. Licha stated that she just received pt's referral and that it needed reviewed by the Dr. Licha stated that it would be the end of the day when she would know if pt is accepted. provided TCC's information for Licha to follow up when acceptance is approved/denied. notified pt and will continue to follow. [facility]03-24-2025 NoteReferral placed to [facility] via [facility] per TCC request. Await review and response regarding ability to accept. TCC notified. [facility]03-24-2025 NoteCare Management Progress Note Patient remains in ICU s/p CABG x 3 05/10. PT recommending IPR. Discussion had with Patient, Spouse and AQUATIC FACILITY MANAGER at the bedside regarding Rehab. Patient is requesting a referral to [facility]. Referral requested to [facility] in [facility]. Length of Stay (Days): 5 GMLOS: 5.8[facility]03-24-2025 NoteCardiothoracic Surgery/CCM Progress Note PATIENT NAME: [...] of 22 minutes were spent between the edok-re-hqam encounter, physical exam, reviewing the medical history, coordinating the patient's care, counseling/educating the patient, ordering medications/test/procedures, interpreting results and documenting clinical information in the patients electronic health record on the day of the encounter. The patient was seen and examined. Cardiac Core Medications: ASA, Statin, and BB EF: 55% (RAYMOND 05/10/24) Blood Conservation: [employer]. Corporation Secretary: Dr. Elder [facility]03-20-2025 NotePHYSICAL THERAPY [facility] Initial Evaluation Name/MRN: Marcus Thrasher ([id number]) Evaluation Date: 05/11/2024 Date of : 1940 [...] Problem List Diagnosis Date Noted CAD in apache artery 05/10/2024 FELICIA (obstructive sleep apnea) 05/04/2024 [...] Strengthening, Gait Training, Bal (more content not included)...[facility]03-20-2025 NoteNutrition Assessment Type and Reason for Visit: Initial, Consult, Patient Education (s/p open heart surgery) Nutrition Recommendations/Plan: Continue 5 carb choices (75 g/meal) diet as ordered Per MNT protocol, will order Ensure HP BID Monitor swallowing for indication for EMT I/85 evaluation. Pt reports hx of swallowing issues [...] loss Fluid Accumulation: Moderate to Severe Extremities Telephone Switchboard Operator Strength: Not Performed Nutrition Assessment: Per chart: [...] On: Kcal/kg Weight Used for Energy Requirements: [place] Weight for Energy Calculation (kg): 67.1 kg (25-30 kcal/kg) Total Energy Requirements (kcals/day): 9529-1154 Weight Used for Protein Requirements: [place] Weight in Kg Used for Protein Requirements: [...] Therapies: Adult diet R (more content not included)...[facility]03-20-2025 Consult note* Telma Morfin, JUSTINE - 05/11/2024 1:30 PM EDTAssociated Order(s): IP CONSULT TO DIETITIAN Nutrition Assessment Type and Reason for Visit: Initial, Consult, Patient Education (s/p open heart surgery) Nutrition Recommendations/Plan: Continue 5 carb choices (75 g/meal) diet as ordered Per MNT protocol, will order Ensure HP BID Monitor swallowing for indication for EMT I/85 evaluation. Pt reports hx of swallowing issues [...] loss Fluid Accumulation: Moderate to Severe Extremities Telephone Switchboard Operator Strength: Not Performed Nutrition Assessment: Per chart: [...] On: Kcal/kg Weight Used for Energy Requirements: [place] Weight for Energy Calculation (kg): 67.1 kg (25-30 kcal/kg) Total Energy Requirements (kcals/day): 5494-8335 Weight Used for Protein Requirements: [place] Weight in Kg Used for Protein Requirements: [...] lb) (06/13) % Weight Change (Calculated): 3 [place] Body Weight (lbs) (Calculated): 148 lbs [place] Body Weight (Kg) (Calculated): 67 kg % [place] Body Weight (Calculated): 144.8 % BMI (kg/m2) [...] to determine Telma Morfin RD, LD Contact: *[phone] or via [employer] chat * Denae Rosales - 05/11/2024 8:52 AM EDTAssociated Order(s): IP CONSULT TO CARDIAC REHAB Received referral and reviewed chart. Phase II Cardiopulmonary Rehab Referral discussed with Farhana Thrasher. Patient prefers cardiopulmonary rehab at [facility]. Given information on program at preferred location. * Jasmyn Mcnally APRN - HOME DEMONSTRATION AGENT - 05/10/2024 12:25 PM EDTAssociated Order(s): IP CONSULT TO ENDOCRINOLOGY Department of Internal Medicine Division of Endocrinology, Diabetes, & Metabolism Endocrinology Note Patient Name: Farhana Thrasher : 1940 AGE: 84 y.o. Room/Bed: OR/NONE Admission Date: 05/10/2024 Visit Date: 05/10/2024 Reason for Endocrine Consult: post op heart Provider/Team Requesting Consult: CTS PCP: KELSEY MOON MD Outpt Wedger Machine: No ASSESSMENT: DM2 with hyperglycemia and retirement insulin Stress hyperglycemia CABGX3 HLD/CAD Obesity Body [...] found for: CHOLHDLRATIO No results found for: VMXV89ULT No results found for: TSH, R6HXJXJ, W3XYKVJ, THYROIDAB Radiology reportsas per the Radiologist Radiology: POCT glucose meter Result Date: 05/10/2024 Performed by: [facility], [address] [place] [id number] CLIA ID: [id number] POCT glucose meter Result Date: 05/10/2024 [facility]formed by: [facility], [address] [place] [id number] CLIA ID: [id number] History/Other: Past Medical History: Past Medical History: [...] patient. In addition, I have reviewed the resident's/MEDICAL TECHNOLOGIST MICROBIOLOGY/RD SCIENTIST's care plan and agree with those findings [...] imaging are reviewed as detailed in the resident's/MEDICAL TECHNOLOGIST MICROBIOLOGY/RD SCIENTIST's note * TARYN Clark CNP - 05/10/2024 12:17 PM EDT Images from the original note were not included. [facility]: Critical Care Consultation Note [...] Comments: ETT/OG. Neck: Comments: Central line and [place]. Cardiovascular: Rate and Rhythm: Normal rate and [...] PM EDT I have personally performed a [id number] diagnostic evaluation on this patient on date of service05/10/24. History, labs, imaging studies, and electronic medical record have been reviewed by me. This note documented by the []housekeeping attendant [x]JULIO CESAR reflects my history, exam, and [...] set to back up -monitor hemodynamics via [place] bárbara. Currently on low dose epi gtt [...] so far today, excludingprocedures. documented in this [facility]03-20-2025 NoteOCCUPATIONAL THERAPY [facility] Initial Evaluation Name/MRN: Marcus Thrasher ([id number]) Evaluation Date: 05/11/2024 Date of : 1940 [...] Problem List Diagnosis Date Noted CAD in apache artery 05/10/2024 FELICIA (obstructive sleep apnea) 05/04/2024 [...] Daily Activity Raw Score: 14 ADL Inpatient [facility] G-Code Modifier: CK Plan Pt would benefit [...] Learning: None Education Outcome: (more content not included)...[facility] 05-11-2024 NoteReceived referral and reviewed chart. Phase II Cardiopulmonary Rehab Referral discussed with Farhana Thrasher. Patient prefers cardiopulmonary rehab at [facility]. Given information on program at preferred location. [facility]03-19-2025 [facility] Respiratory Care Department Progress Note [...] 05/10/24 1105 05/10/24 1347 PHART 7.352 7.313* WMX6GHA 43.0 39.5 PO2ART 387.1* 177.8* IIF6CSS 23.3 19.6* [id number] Ventilator Ventilator Does this patient meet criteria for termination of mechanical ventilation Yes- Notified physician below Name of physician notified via secure chat or in person : nurse (NA if patient did not meet criteria) Comments: Thank you for involving Respiratory in the care of this patient, [facility]03-19-2025 NotePatient: Marcus Thrasher Procedure Summary Date: 05/10/24 Room / Location: [address] Operating Room Anesthesia Start: 07 Anesthesia [...] Allowed opportunity for questions and acknowledgement of understanding.[facility]03-19-2025 NotePatient: Marcus Thrasher Procedure Summary Date: 05/10/24 Room / Location: [facility] Operating Room Anesthesia Start: 722 Anesthesia [...] discharged once all PACU criteria has been met.[facility]03-19-2025 NoteCentral Venous Line: Date/Time: 05/10/2024 8:00 [...] complications. Staffing Performed: anesthesiologist Anesthesiologist: [place] Medel [facility]03-19-2025 Note Arterial Line: Date/Time: 05/10/2024 7:30 AM [...] of chloraprep and sterile gloves Staffing Performed: [facility] Resident/JUNIOR SALES REPRESENTATIVE: Sheldon Martin APRN [facility]03-19-2025 Note Airway Date/Time: 05/10/2024 7:30 AM Urgency: scheduled General Information and Staff Patient location during procedure: Procedural Resident/JUNIOR SALES REPRESENTATIVE: TARYN Mcnair CRNA Performed: JUNIOR SALES REPRESENTATIVE Indications and Patient Condition Indications for airway [...] Additional Comments Atraumatic placement of ETT, [facility]-20[facility] NoteH&P reviewed. The patient was examined and there are no changes to the H&P. [facility]03-19-2025 History and physical note* Daysi Velasco MD - 05/10/2024 7:08 AM EDT H&P reviewed. The patient was examined and there are no changes to the H&P. Source Note - Daysi Velasco MD - 04/25/2024 12:00 PM EST Images from the original note were not included. [facility]ARDIOVASCULAR [facility]ORACIC SURGERY [address] [facility] [address] Dept: [phone] Dept Loc: [phone] Visit type: New Reason for Visit: Multivessel [...] This note may have been dictated using [employer] Medical Practice Edition 2.6 and/or [employer]ivo Voice Recognition Feature. The document was proofread, however unrecognized voice recognition financial aid counselor errors may be present. documented in this [facility]03-13-2025 NotePatient: Marcus Thrasher Procedure Information Date/Time: 05/10/24729 Procedures: CORONARY ARTERY BYPASS GRAFT (Chest) - 7:30 am, 5 hours ECHOCARDIOGRAM, TRANSESOPHAGEAL Location: [facility] OR Operating Room Surgeons: Daysi Velasco MD Relevant Problems Anesthesia Also has central sleep apnea (+) History of motion sickness (+) FELICIA (obstructive sleep apnea) Cardio (+) CAD in apache artery Pulmonary (+) FELICIA (obstructive sleep apnea) [...] Additional Equipment: ultrasound, Transport Vent and Pacer [facility]03-13-2025 NoteComprehensive Pre Surgical History and Physical ? Name: Farhana Thrasher : 1940 (Age-84 y.o.) Date of Service: Pt seen/examined on 05/04/2024 Procedure Information Date/Time: 05/10/24 0730 Procedures: CORONARY ARTERY BYPASS GRAFT (Chest) - 7:30 am, 5 hours ECHOCARDIOGRAM, TRANSESOPHAGEAL Location: [facility] Operating Room Surgeons: Daysi Velasco MD Chief [...] - Managed by Dr. Elder in cardiology ([place]) 4) Parkinsonism - pt denies dx of [...] No new complaints. No (more content not included)...[facility]03-04-2025 Note* Addendum Note - TARYN Martinez CNP - 04/25/2024 1:57 PM ESTAddended by: CARTER LE on: 04/25/2024 01:57 PM Modules accepted: Orders [id number] Miscellaneous Notes* Addendum Note - TARYN Martinez [...] mouth rinse [] Other: documented in this [facility]03-04-2025 NotePrep for Procedure Order Request: 04/25/24 Surgeon: Dr. Velasco Surgery/Procedure: CABG, RAYMOND Diagnosis: CAD Plan Admit: yes PAT Appointment: yes Date if yes: 05/04/24 10:30 am [facility] Date of Surgery/Procedure: 05/10/24 7:30 am Medications: [] Hold as directed by CTS: [x] Per PAT protocol Medication needed prescribed: [] None [x] Nasal ointment and mouth rinse [] Other: [facility]03-04-2025 Telephone encounter Note* Telephone Encounter - Leeanna [...] Nasal ointment and mouth rinse [] Other: [facility] [id number] History of Present illness Narrative* Daysi Velasco MD - 04/25/2024 12:00 PM EST Images from the original note were not included. [facility]AC[facility] SURGERY [address] [facility] [address] Dept: [phone] Dept Loc: [phone] Visit type: New Reason for Visit: Multivessel [...] This note may have been dictated using [employer] Edition 2.6 and/or Plivo Voice Recognition Feature. The document was proofread, however unrecognized voice recognition financial aid counselor errors may be present. documented in this [facility]03-04-2025 [facility] MEDICAL [facility] CARDIOV[facility] THORACIC SURGERY [address] [facility] [address] Dept: [phone] Dept Loc: [phone] Visit type: New Reason for Visit: Multivessel [...] tenderness. Abdominal: Julio Cesar (more content not included)...[facility]03-03-2025 Chief complaint+Reason for visit Narrative* Chief [...] 8:24 am 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 April 24, [...] 9:56a m 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 July 06, 2024 9:56am Carotid artery disease July 06, 2024 9: 56am Diastolic dysfunction July 06, 2024 9:5 6am Mixed hyperlipidemia July 06, 2024 9:56 am [facility] Work Phone: 1(239) 546-552103-03-2025 Evaluation note* Diagnosis Onset Date Resolution Status Admit Date Abnormal cardiovascular stre ss test acute April 24, 2024 8:24am Chest pain acute April 24 8:24am 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 April [...] 2024 9:56am 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 July 06, 2024 9 :56am Carotid artery disease chronic Ma y 2024 9:56am Diastolic dysfunction chronic July 06, 2024 9:56am Mixed hyperlipidemia chronic July 06, 2024 9:56am [facility] Work Phone: 1(417) 685-200902-28-2025 [facility]01-30-2025 Evaluation note* Diagnosis Onset Date Resolution Status Admit Date 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 March 23 1:16pm Carotid artery disease chronic Ja nuary 2024 1:16pm Diabetes mellitus chronic March 23, 2024 1:16pm Diastolic dysfunction chronic Nahum uary 2024 1:16pm Mixed hyperlipidemia chronic Laron ricki 2024 1:16pm Parkinsonism chronic February 1:16pm Abnormal cardiovascular stre ss test acute April 24, 2024 8:24am Chest pain acute April 24 8:24am 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 April [...] apnea, obstructive chronic May 16, 2024 12:37pm [facility] Work Phone: 1(641) 967-954601-30-2025 Evaluation note* Diagnosis Onset Date Resolution Status Admit Date 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 March [...] 24 8:24am 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 April [...] April 12:37pm 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 June 9:56am Carotid artery disease chronic Ma y 2024 9:56am Diastolic dysfunction chronic July 06, 2024 9:56am Mixed hyperlipidemia chronic July 06, 2024 9:56am [facility] Work Phone: 1(254) 194-523801-30-2025 Evaluation note* Diagnosis Onset Date Resolution Status Admit Date 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 March [...] 24 8:24am 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 celina [id number]_[employer] (AVNI)_EUA This test was developed and its performance characteristics determined by [facility] [place]. This test has been authorized by FDA under an Emergency Use Authorization (EUA). This test has been validated in accordance with the FDA's Guidance Document Policy for DiagnosticsTesting in Laboratories Certified to Perform High Complexity Testing under CLIA prior to Emergency use Authorization for Coronavirus Disease 2019 during the Public Health Emergency issued on April 22, 2019. Test performed by [facility], [facility] [place], [address] [place] [address]. INFLUENZA A PCR: Negative for Influenza A by RT-PCR INFLUENZA B PCR: Negative for Influenza B by RT-PCRMartin Memorial HospitalComment on above: Performed By: #### [id number] #### [facility] CLIA [id number] [address] [place], [place] [address]K [address]04-07-2022 NoteHNO ID: [id number] Author: Yoselin Khan APRN.HOME DEMONSTRATION AGENT Service: ? Author Type: Nurse Practitioner Type: Progress Notes Filed: 05/29/2021 10:25 AM Note Text: Subjective Patient came in because he was exposed to covid a week ago and has no symptoms at this time. The history is provided by the patient. No stamping machine operator was used. Review of Systems Constitutional: Negative. [...] - COVID WITH FLUA+B, ROUTINE Yoselin Khan APRN.HEBERMartin Memorial Hospital04-07-2022 History of Present illness Narrative* Yoselin Khan APRN.HOME DEMONSTRATION AGENT - 05/29/2021 10:09 AM EDT Subjective Patient came in because he was exposed to covid a week ago and has no symptoms at this time. The history is provided by the patient. No stamping machine operator was used. Review of Systems Constitutional: Negative. [...] as directed) blood sugar diagnostic (ACCU-CHEK CLARITZA) [facility] test strip CHECK BLOOD SUGARS 3-4 TIMES [...] - COVID WITH FLUA+B, ROUTINE Yoselin Khan APRN.HOME DEMONSTRATION AGENT documented in this [facility]04-01-2022 NoteHNO ID: [id number] Author: Alix Valle APRN.HOME DEMONSTRATION AGENT Service: ? Author Type: Nurse Practitioner Type: Progress Notes Filed: 05/23/2021 3:33 PM Note Text: This note was created using Parature. Subjective Farhana Thrasher is a 81 year [...] ASYMPTOMATIC ELECTIVE COVID-19 Sadiq Massey TEACHING PROVIDER (Physician/PA/AVAYA ENGINEER) NOTE OF PERSONAL INVOLVEMENT IN CARE: I have personally seen and examined the patient and performed the medical decision-making components. I have reviewed the Advanced Practice Registered Nurse (AVAYA ENGINEER) Student's documentation and verified the findings in the note as written. Any additions or changes are noted in bold/italics. Signature: Alix Valle Date: 05/23/2021 Time: 3:32 [facility]04-01-2022 Instructions* Patient Instructions* Sadiq Massey - 05/23/2021 [...] to your local emergency facility: Notify the winch operator that you are seeking care for [...] can be around others. documented in this [facility]04-01-2022 History of Present illness Narrative* Alix Valle APRN.HOME DEMONSTRATION AGENT - 05/23/2021 11:42 AM EDT This note was created using Parature. Subjective Farhana Thrasher is a 81 year [...] as directed) blood sugar diagnostic (ACCU-CHEK CLARITZA) [facility] test strip CHECK BLOOD SUGARS 3-4 TIMES [...] ASYMPTOMATIC ELECTIVE COVID-19 Sadiq Massey TEACHING PROVIDER (Physician/PA/AVAYA ENGINEER) NOTE OF PERSONAL INVOLVEMENT IN CARE: I have personally seen and examined the patient and performed the medical decision-making components. I have reviewed the Advanced Practice Registered Nurse (AVAYA ENGINEER) Student's documentation and verified the findings in the note as written. Any additions or changes are noted in bold/italics. Signature: Alix Valle Date: 05/23/2021 Time: 3:32 PM documented in this encounterPrem[facility]10-30-2017 Fall risk assessment [facility] risk assessmentWselect specialty [facility] Work Phone: 1(717) 961-850803-23-2017 Fall risk [id number]/03/23[facility] risk assessmentScionhealthRingpay [facility] Work Phone: Discharge summary Author Tiara Alston [facility] Note Date/Time September 08, 2024 1:22 pm [facility] Medical Records Department [address] [place] [id number] Emergency Department Summary 09/08/24 MR#: [id number] Acct: [id number] Name: Joaquin THRASHER Rep #:[id number] : 1940 84 From: Tiara Carlin [...] mild nausea and fullness in his head. 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 Reading Location: [facility] Rhythm Strip Rhythm Strip: Sinus Rhythm Rate: [...] return to the emergency room. Print Language: Serbian Disposition Disposition: Home, Self Care What to do if you have Problems For any increased pain, shortness of breath, bleeding, nausea or vomiting, chestpain, or any unexpected problems, contact your Primary Care Provider. Call [facility] ([phone]) or report to the closest Emergency Room. Call 911 if necessary. 09/08/24 1322 <Electronically signed by Tiara Alston DO> Cosigner Signature (if applicable): CC: Dr. Fredis Moon MD ~ Signed [facility] Work Phone: evaluation noteNo assessment information available [facility] Work Phone: Evaluation note* Diagnosis Close exposure to COVID-19 virus- Primary [facility]* Diagnosis Close exposure to COVID-19 virus- Primary documented in this encounter [facility] note* Diagnosis Onset Date Resolution Status Carotid artery disease acute Premature atrial contractions acute Premature ventricular contraction acute Syncope acute 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 Essential hypertension chron ic Mixed hyperlipidemia chronic [facility] Work Phone: evaluation note* Diagnosis Onset Date Resolution Status Bilateral lower extremity edema acute Carotid artery disease acute 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 Essential hypertension chron ic Mixed hyperlipidemia chronic [facility] Work Phone: Evaluation note* Diagnosis 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, unspecified whether apache or transplanted heart (HCC)- Primary Type 2 diabetes mellitus with diabetic neuropathy, without long-term current use of insulin (HCC) CAD (coronary artery disease) Coronary atherosclerosis of unspecified type of vessel, apache or graft documented in this encounter [facility]* Diagnosis CAD in apache artery- Primary Preoperative clearance Unspecified pre-operative examination 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 (CODE) CAD (coronary artery disease) Coronary atherosclerosis of unspecified type of vessel, apache or graft documented in this encounter [facility]* Diagnosis CAD in apache artery- Primary Preoperative clearance Unspecified pre-operative examination 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 (CODE) CAD in apache artery CAD (coronary artery disease) Coronary atherosclerosis of unspecified type of vessel, apache or graft S/P CABG (coronary artery bypass graft) Postsurgical aortocoronary bypass status documented in this encounter [facility]* Diagnosis S/P CABG (coronary artery bypass graft)- Primary Postsurgical aortocoronary bypass status [facility]* Diagnosis S/P CABG (coronary artery bypass graft)- Primary Postsurgical aortocoronary bypass status documented [facility] encounter [facility]* Diagnosis CAD in apache artery S/P CABG (coronary artery bypass graft) Postsurgical aortocoronary bypass status [facility] Discharge instructionsAdditional Instructions Your workup today was largely normal. Please follow-up outpatient with Dr. Moon as scheduled next week. You continue to have intermittent episodes of dizziness/vertigo please also follow-up with Dr. Dey. If your symptoms progress or worsen please return to the emergency room.[facility] Work Phone: Reason for visit Narrative* Auth/Cert (Routine) Specialty Diagnoses / Procedures Referred By Contac t Referred To Contact Diagnoses CAD (coronary artery disease) Procedures MA CABG W/ARTERIAL GRAFT THREE ARTERIAL GRAFTS MA ECHO TRANSESOPHAG R-T 2D W/PRB IMG ACQUISJ I&R CORONARY ARTERY BYPASS GRAFT ECHOCARDIOGRAM, TRANSESOPHAGEAL Velasco, Daysi Perry MD [address] [place] [address], [address] [place] [address] Phone: tel: fax: Referral ID Status Reason Start Date Expiration Date Visits Re quested Visits Authorized [id number] 04/25/2024 [address] 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 Essential hypertension Mixed hyperlipidemia Chief Complaint Obstructive sleep ap brigid (adult) (pediatric) Chief Complaint Obstructive sleep ap brigid (adult) (pediatric) FALL Chief Complaint FALL 1 Y FU E-ORDER Reason for Visit Bilateral lower extr emity edema Carotid artery disease 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 Essential hypertension Mixed hyperlipidemia Chief Complaint 1 Y FU E-ORDER Reason for Visit Bilateral lower extr emity edema Carotid artery disease 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 Essential hypertension [...] Admit Date 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 March 23, 2024 1:16pm Carotid artery disease March 23 1:16pm Diabetes mellitus March 23, 2024 1 :16pm Diastolic dysfunction March 23, 2024 1:16pm Mixed hyperlipidemia March 23, 2024 1:16pm Parkinsonism March 23, 2024 1 :16pm Abnormal cardiovascular stress test 2024 8:24am Chest pain April 24, 2024 8:24 am 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 April 24, [...] Admit Date 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 March 23, 2024 1:16pm Carotid artery disease March 23 1:16pm Diabetes mellitus March 23, 2024 1 :16pm Diastolic dysfunction March 23, 2024 1:16pm Mixed hyperlipidemia March 23, 2024 1:16pm Parkinsonism March 23, 2024 1 :16pm Abnormal cardiovascular stress test Will 2024 8:24am Chest pain April 24, 2024 8:24 am 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 April 24, [...] 2024 12:37pm 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 July 06, [...] Admit Date 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 March 23, 2024 1:16pm Carotid artery disease March 23 1:16pm Diabetes mellitus March 23, 2024 1 :16pm Diastolic dysfunction March 23, 2024 1:16pm Mixed hyperlipidemia March 23, 2024 1:16pm Parkinsonism March 23, 2024 1 :16pm Abnormal cardiovascular stress test Will 2024 8:24am Chest pain April 24, 2024 8:24 am 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 April 24, [...] 9:56a m 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 July 06, [...] 8:24 am 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 April 24, [...] 9:56a m 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 July 06, [...] 9:56a m 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 July 06, [...] 37pm Type 2 diabetes mellitus with hyperglyce [facility] May 16, 2024 12:37pm Sleep apnea, obstructive May 16 12:37pm Diabetic polyneuropathy May 16, 2024 12:37pm Malignant neoplasm of prostate April 12:37pm Status post three vessel coronary artery bypass May 16, 2024 12:37pm Anemia July 06, 2024 9:56a m 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 July 06, 2024 9:56am Carotid artery disease July 06, 2024 9: 56am Diastolic dysfunction July 06, 2024 9:5 6am Mixed hyperlipidemia July 06, 2024 9:56 am Anemia October 02, 2024 11 :28am Type 2 diabetes mellitus with hyperglyce monster October 02, 2024 11:28am 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 October 02, [...] No January 08, 018 10:29am Power of Paleobotanist No January 08, 2018 10:29am Advance Directive Response Recorded Date/ Time Advance Directives No January 12:22pm Living Will No January 08, 018 9:29am Power of Paleobotanist No January 08, 2018 9:29am Advance Directive Response Recorded Date/ Time Name of Medical Power of Paleobotanist [employer]oples December 30, 2022 9:00pm Advance Directives No January 12:22pm Living Will Yes December 30 9:00pm Power of Paleobotanist Yes December 30, 2022 9:00pm Advance Directive Response Recorded Date/ Time Advance Directives No January 1:22pm Living Will Yes December 30 10:00pm Power of Paleobotanist Yes December 30, 2022 10:00pm Documents on File Type Date Recorded 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 Yes April 24, 2024 9:50am Name of Medical Power of Paleobotanist Yousif (SPOUSE) April 24, 2024 9:50am Advance Directives Yes April 24 9:50am Living Will Yes May 18, 2024 11:12am Do you have a Healthcare Pow er of Paleobotanist? 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 Yes April 24, 2024 9:50am Name of Medical Power of Paleobotanist Yousif (SPOUSE) April 24, 2024 9:50am Advance Directives Yes April 24 9:50am Advance Directives on File Yes June 222024 9:36am Living Will Yes July 04, 2024 9 :36am Do you have a Healthcare Pow er of Paleobotanist? Yes July 04, 2024 9:36am Living Will Yes May 18, 2024 11:12am Do you have a Healthcare Pow er of Paleobotanist? Yes May 18, 2024 11:12am Name of Medical Power of Paleobotanist mamie Cooper May 18, 2024 11:12am Advance Directive Response Recorded Date/ Time Advance Directives on File Yes June 222024 9:36am Living Will Yes July 04, 2024 9 :36am Do you have a Healthcare Pow er of Paleobotanist? Yes July 04, 2024 9:36am Living Will Yes May 18, 2024 11:12am Do you have a Healthcare Pow er of Paleobotanist? Yes May 18, 2024 11:12am Name of Medical Power of Paleobotanist mamie Cooper May 18, 2024 11:12am Do you have a Healthcare Pow er of Paleobotanist? Yes September 08, 2024 10:34am Name of Medical Power of Paleobotanist yousif September 08, 2024 10:34am Advance Directives [...] or prosecute any alcohol or drug abuse patient.[facility] the event this information is protected by the Federal Confidentiality of Alcohol and Drug Abuse Patient Records regulations: The Federal rules restrict any use of the information to criminally investigate or prosecute any alcohol or drug abuse patient.[facility] Reason for Visit (unrecogniz ed section and content) Reason Comments Covid19 Concern asymptomatic exposur e x1 day Reason Comments COVID exposure COVID exposure Reason Comments New Patient Specialty Diagnoses / Procedures Referred By Daria t Referred To Contact Cardiothoracic Surgery Diagnoses CABG Procedures NEW PATIENT Samson Elder MD [address] [place] [address] Phone: tel: fax: Daysi Velasco MD [address] [place] [address], [address] [place] [address] Phone: tel: fax: Referral ID Status Reason Start Date Expiration Date V isits Requested Visits Authorized [id number] Pending Review 04/25/2024 04/25/2025 1 1 Reason Onset Date Comments Surgery Scheduling 04/25/2024 Reason Comments Follow-up Reason Comments Post-op Reason Onset Date Comments Orders 06/23/2024 Reason Onset Date Comments [facility] Outreach 06/27/2024 Reason Onset Date Comments [facility] Outreach 07/24/2024 Care Teams (unrecognized sec tion and content) Test Operator Relationship Specialty Start Date End Date Fredis Moon Chi [address] [place], [place] [phone] PCP - General Gerontology 05/23/21 Test Operator Relationship Specialty Start Date End Date Fredis Moon Chi [address] [place], [place] [phone] PCP - General Gerontology 05/23/21 Team Status: [...] Care Provider, Referring Provider Active Mi Hernandez RD SCIENTIST, RD SCIENTIST-C Attending Provider Active Team Status: Inactive Member Role Status Dates Dr. Fredis Moon MD Primary Care Provider Active Mi Hernandez RD SCIENTIST, RD SCIENTIST-C Attending Provider, Referring P chapis Active Team Status: Active Member Role Status Dates Dr. Fredis Moon MD Primary Care Provi shania, Attending Provider, Referring Provider Active Test Operator Relationship Specialty Start Date End Date Kelsey Moon MD [address] [place] [phone] PCP - General Geriatric Medicine 05/10/24 Chante Hong, VITOR Registered Nurse Network Security Consultant Manager 05/11/24 Team Status: Active Member Role [...] Provider Active S tart: May 18, 2024 Test Operator Relationship Specialty [place] [address] [place] [address] [phone] PCP - General Geriatric Medicine 05/10/24 Chante Hong, VITOR Registered Nurse Network Security Consultant Manager 05/11/24 Team Status: Active Member Role Status Dates Dr. rFedis Moon MD Primary Care Provider Active Start: [...] Provider Active S tart: June 02, 2024 Test Operator Relationship Specialty Start Date End Date Kelsey Moon MD [address] [facility] [address] [place] [address] PCP - General Geriatric Medicine 05/10/24 Chante Hong, RN Registered Nurse Network Security Consultant Manager 05/11/24 Lilliana Reed I., BROACHING MACHINE REPAIRER Crowd Controller Licensed Clinical Crowd Controller 06/08/24 Test Operator Relationship Specialty Start Date End Date Kelsey Moon MD [address] [facility] [address] [place] [phone] PCP - General Geriatric Medicine 05/10/24 Chante Hong, RN Registered Nurse Network Security Consultant Manager 05/11/24 Lilliana Reed I., BROACHING MACHINE REPAIRER Crowd Controller Licensed Clinical Crowd Controller 06/08/24 Team Status: Inactive Member Role Status [...] 2024 End: July 06, [address] SCIENTIST, RD SCIENTIST-C Attending Provider Active Start: July 06, 2024 End: July 06, 2024 Team Status: Active Member Role Status Dates Dr. Fredis Moon MD Primary Care Provider Active Start: July 06, 2024 Dr. Samson Elder MD Attending Provider Active Start: July 06, 2024 Dr. Samson Elder MD Referring Provider Active Start: July 06, [address] SCIENTIST, RD SCIENTIST-C Other Provider Active Sta rt: July 06, 2024 Test Operator Relationship Specialty [place] [address] [place] [phone] PCP - General Geriatric Medicine 05/10/24 Chante Hong, VITOR Registered Nurse Network Security Consultant Manager 05/11/24 Lilliana Reed I. [facility] Crowd Controller Licensed Clinical Crowd Controller 06/08/24 Team Status: Inactive Member Role Status [...] 2024 End: July 06, [address] SCIENTIST, RD SCIENTIST-C Other Provider Active Sta rt: July 06, [...] July 21, 2024 End: July 22, 2024 Test Operator Relationship Specialty Start Date End Date Kelsey Moon MD [address] [facility] [address] [place] [phone] PCP - General Geriatric Medicine 05/10/24 Chante Hong RN Registered Nurse Network Security Consultant Manager 05/11/24 Lilliana Reed I., [facility] Crowd Controller Licensed Clinical Crowd Controller 06/08/24 Test Operator Relationship Specialty Start Date End Date Kelsey Moon MD [address] [facility] [address] [place] [phone] PCP - General Geriatric Medicine 05/10/24 Chante Hong RN Registered Nurse Network Security Consultant Manager 05/11/24 Lilliana Reed I., BROACHING MACHINE REPAIRER Crowd Controller Licensed Clinical Crowd Controller 06/08/24 08/11/24 Team Status: Active Member Role/Relationship [...] 2024 End: July 06, [address] SCIENTIST, RD SCIENTIST-C Attending Provider Active Start: July 06, 2024 [...] 2024 End: July 06, [address] SCIENTIST, RD SCIENTIST-C Other Provider Active Sta rt: July 06, [...] 2024 End: July 06, [address] SCIENTIST, RD SCIENTIST-C Attending Provider Active Start: July 06, 2024 [...] End: July 06, 2024 Mi Hernandez NP, RD SCIENTIST-C Other Provider Active Sta rt: July 06, [...] 04, 2024 End: July 04, 2024 Dr. Dyasi Velasco MD Attending Provider Active Start: July [...] 2024 End: July 06, [address] SCIENTIST, RD SCIENTIST-C Attending Provider Active Start: July 06, 2024 [...] 2024 End: July 06, [address] SCIENTIST, RD SCIENTIST-C Other Provider Active Sta rt: July 06, [...] End: July 06, 2024 Mi Hernandez NP, RD SCIENTIST-C Attending Provider Active Start: July 06, 2024 [...] 2024 End: July 06, [address] SCIENTIST, RD SCIENTIST-C Other Provider Active Sta rt: July 06, [...] Active Member Role/Relationship Status Dates Dr. Fredis Mono MD Primary Care Provider Active Start: October [...] 2024 End: October 02, [address] SCIENTIST, RD SCIENTIST-C Attending Provider Active S tart: October 02, 2024 End: October 02, 2024 (unrecognized sect ion and content) No Status Records FoundNo Status Records FoundNo Status Records Found INFORMATION SOURCE (unrecogn ized section and content) DATE CREATED AUTHOR 05/31/2021 [facility] DATE CREATED AUTHOR AUTHOR'S ORGANIZ ATION 08/14/2024 [facility] DATE CREATED AUTHOR AUTHOR'S ORGANIZ ATION 09/29/2024 [facility] Scheduled Active and Recently Administ ered Medications [...] - Reason: Other)2046 (Given - Provider: Radha Farley RN) 0847 (Given - Provider: Clara Romero, [...] sedation for opioid reversal - MUST notify induction coordination power engineer provider immediately after first dose, may give [...] BE BASED ON THE PRIMARY CLINICAL RECORDS. [employer] provides no warranty or guarantee of the accuracy or completeness of information in this document.
== END | disposition home or self-care (01) ==
LOC: LABSPEC 18:19
PROVIDERS: PCP Family Medicine Geriatric Medicine; Visit Provider Family Medicine Geriatric Medicine
DX: L03.032 Cellulitis of left toe (principal)
CPT/HCPCS: 87070; 87075; 87205; 87640

== ENCOUNTER 2024-10-04 09:15 | Outpatient (RCR) | payer MEDICARE, OTHER, SELFPAY ==
[2024-09-01 08:23] VITALS: BMI 33.4
--- NOTE | 2024-09-29 07:58 | CR.ITP_ITS ---
Exercise - Initial Assessment Physician Prescribed Exercise Modalities: Treadmill, SciFit Stepper and SciFit Lateral [place] Nutrition - Initial Assessment Weight Mgt (Other Care) Height: 5 ft 6 in Weight:: 208 lb BMI: 33.5 Psychosocial - Initial Assess Target Goals Target Goals Referral to Behavioral Health PS - Interventions: Yes: Attend Stress Management Classes Patient Health Questionnaire PHQ-9 Screening 90-Day Re-eval Assessment: 1. Little interest or pleasure in doing things: Not at all 2. Feeling down, depressed, or hopeless: Not at all 3. Trouble falling or staying asleep, or sleeping too much: Nearly every day 4. Feeling tired or having little energy: More than half the days 5. Poor appetite or overeating: More than half the days 6. Feeling bad about yourself -- or that you are a failure or have let yourself or your family down: More than half the days 7. Trouble concentrating on things, such as reading the newspaper or watching television: More than half the days 8. Moving or speaking so slowly that other people could have noticed. Or the opposite - being so fidgety or restless that you have been moving around a lot more than usual: Several days 9. Thoughts that you would be better off , or of hurting yourself in some way: Not at all How difficult have these problems made it for you to do your work, take care of things at home, or get along with other people?: Somewhat difficult Total Score: 12 Self-Efficacy 6-Item Scale 90-Day Re-eval Assessment: We would like to know how confident you are in doing certain activities. 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 Exercise - 60-day Assessment Physician Prescribed Exercise Modalities: Treadmill, SciFit Stepper and SciFit Lateral [place] Exercise - 90-day Assessment Visit Date of Eval: 09/29/24 Session #:: 33 Physician Prescribed Exercise Modalities: Treadmill, SciFit Stepper and SciFit Lateral [place] Frequency: 3x/week for 12 weeks [36 sessions] Intensity: 60-80% of age predicted maximum heart rate reserve Duration: 30 - 45 minutes Current METSs:: 6.8 Target Heart Rate:: 83-117 Current RPE:: 13 Maximum Excercise HR:: 103 Resting Blood Pressure: 130/58 Maximum Exercise Blood Pressure: 166/76 EKG Type: 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, rare PVC Outcomes & Goals Goals:: Verbalizes understanding of THR, RPE & goal METS by session 6, Documents in home exercise log/reports 30 min aerobic 5 day/wk by DC, Demonstrates accurate pulse taking by DC and Other additional outcome/goals: see below Intervention & Plan Exercise Program Goals: Instruct on personal THR & RPE, Instruct on MET level & personal MET goal, Show patient to take own pulse /validate performance until accurate, Instruct on home exercise and Other additional plan/int Physical Activity Home Exercise Physical Activity - Home Exercise: Safe Exercise, Warm-up, Self-monitoring, Cool-Down, Home Exercise > 30 min Daily and Sitting Time <3 hours/daily Outcomes & Goals Outcomes/Goals: Demonstrates correct Warm-up/exercise Cool-Down (S3) if = 2.5 METs, Verbalizes symptoms of exercise intolerance by Session 3 (S3), Demonstrate safe equipment use (S3) & follows exercise prescrition (6) and Other: See below Intervention & Plan Plan/Intervention: Instruct warm-up & cool-down if exercising at > 2 METs, Instruct on symptoms of exercise intolerance & actions to take, Instruct & monitor on saf, Assess intial functional capacity & safety risk and Other See below 30-day Reassessments 30 day Reassessments:: Met Reassessment Notes & Comments:: Pt has 3 sessions remaining and is ready to exercise on his own. Pt will be given his exercise prescription upon graduation as well as community resources to continue his exercise. 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 Will encourage low sodium diet and weight loss. Core - Final Assessment Hypertension [place] [employer] Hypertension Guidelines Reassessment Notes & Comments:: Pt's BP's are within AHA normal limits on most days. Will encourage low sodium diet and weight loss. Core - 90 Day Assessment Visit Date of Eval: 09/29/24 Session #:: 33 Medication Compliance Preventative Medication(s):: Aspirin, Statin/lipid and Beta soni H/O mental health issues: depression, anxiety, or addiction?: No Doesn?t believe in the benefits of treatment?: No Believes medications are unnecessary or harmful?: No Has a concern about medication side effects?: No Expresses concern over the cost of medications?: No Outcomes/Goals: Verbalizes medications,desired effect & common side effects @ DC, Pt self-reports following medication regimen, Keeps card in wallet w/medications listed by DC and Other additional outcome/goals: Interventions/plans: Instruct on medication effects & side effects, Review medication list w/patient every two weeks, Instruct importance of taking meds as ordered & assist problem solving and Other additional 30-day Reassessments:: Met Reassessment Notes & Comments:: Pt taking meds as prescribed Tobacco Use Tobacco Use: Non-smoker Hypertension Hypertension Diagnosis:: Hypertension ICD-10 I10 Resting Blood Pressure:: 130/58 [place] [employer] Hypertension Guidelines Peak Exercise Blood Pressure:: 166/76 Outcomes/Goals: Able to verbalize/achieve optimal blood pressure <130/80, Incorporates diet changes & exercise for blood pressure control by DC and Other additional outcomes/goals Interventions/plan: Instruct on optimal blood pressure, hypertension & medications, Instruct on effects of sodium, alcohol, stress, exercise &hypertension and Other additional plan/interventions 30 day Reassessments:: Progressing Reassessment Notes & Comments:: Pt's BP's are within AHA normal limits on most days. Will encourage low sodium diet and weight loss. Tobacco Cessation Referral Smoking Cessation Referral:: No Individual Education/Counseling:: No Education Schedule Given:: Yes Psychosocial - 30-Day Assess Target Goals Target Goals Referral to Behavioral Health PS - Interventions: Yes: Attend Stress Management Classes Psychosocial - 60-Day Assess Target Goals Target Goals Referral to Behavioral Health PS - Interventions: Yes: Attend Stress Management Classes Psychosocial - 90-Day Assess VIsit Date of Eval: 09/29/24 Session #:: 33 History of previous Mental disease:: No Target Goals Target Goals Psychosocial Test Tool Used:: PHQ-9 Questionnaire phq-9 Severity See PHQ-9 Score: 12 Referral to Behavioral Health PS - Interventions: Yes: Attend Stress Management Classes Outcomes/Goals: See list Psychosocial Outcomes/Goals:: ID's personal stressors & 2 strategies to manage stress by discharge and Other Additional outcome/goals: Intervention/Plan: See List Interventions/Plan:: Assess stressors,coping strategies & signs of derpression on admission, Instruct/assist pt to develop coping & personal stress Mgt strategies, Refer to Behavioral Health if appropriate, Refer to Physician if appropriate, Instruct patient to recognize signs & symptoms of depression, Instruct patient to recog and Other additional plan/intervention 30-day Reassessments: 30 day Reassessments:: Met Reassessment Notes & Comments:: Pt denies any psychosocial issues at this time. Pt has attended stress management class. Psychosocial - Final Assessmen Target Goals Target Goals Referral to Behavioral Health PS - Interventions: Yes: Attend Stress Management Classes Nutrition - 90-Day Assessment Program Goals Nutrition Program Goals Patient has diagnosis of Hyperlipidemia (ICD E78)?: Yes Visit Date of Eval: 09/29/24 Session #:: 33 Cholesterol/Lipids (Other Core Measures) Determine presence & major risk factors that modify LDL goal: Hypertension or hypertensive medication, Low HDL cholesterol <40 mg/dL*, Family history of premature CHD in Male < 55 years: female <65 yearsFa and Age men > 45 years; women >/= 55 years Outcomes/Goals: Pt IDs own risk factors & lifestyle modifications by Session 10, Verbalizes symptoms of angina & response by session 3., Pt independently manages and Other Additional Outcomes/Goals: Intervention/Plan: Advocate for lipid panel cholesterol medication if applicable, Instruct on personal lipid levels & lipid goals/NCEP guidelines, Instruct on cholesterol and Other additional plan/int Referral to dietitian:: Yes Diabetes (Other Core Measures) Diabetes Type: 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 Referral to Diabetic Clinic:: Yes Weight Mgt (Other Care) Height: 5 ft 6 in Weight:: 208 lb BMI: 33.5 Diagnosis Overweight/Obesity BMI> 30% ICD-10 E66: Yes Diagnosis High BMI/Morbid Obesity BMI> 35% ICD-10 Z68: No Outcomes/Goals: Pt sets, maintains & shows weight loss goal & trend during rehab and Other additional outcomes/goals Intervention/Plan: Instruct on ideal BMI & set weight loss goal w/patient, Assist pt to ID & incorporate diet changes for weight loss by S9, Refer to Structured Weight Loss program as appropriate, Encourage goal of using 250-300 dcal per session for weight loss and Other additional plan/interventions Healthy Eating Habits Will attend diet classes:: Yes Outcomes/Goals:: Consume diet rich in vegs,fruits,whole grain/high fiber,fish,lean meat, Limit sat/trans fats,cholesterol & added salts & sugars and Other additional outcome/goals: Intervention/Plan:: Assess current eating habits and Other Additional plan/interventions 30-day Reassessments:: Met Reassessment Notes & Comments:: Pt has attended nutrition class and has met with our puttying and calking supervisor. Education Gave educational materials for:: Signs & symptoms of hypoglycemia, Signs & symptoms of hyperglycemia, Relate diabetes to coronary artery disease and Healthy eating Nutrition - Final Assessment Weight Mgt (Other Care) Height: 5 ft 6 in Weight:: 208 lb BMI: 33.5
[2024-09-29 08:14] VITALS: BP 130/58; BMI 33.5
== END 2024-10-22 23:59 ==
LOC: CR 09:15
PROVIDERS: PCP Family Medicine Geriatric Medicine; Referring Provider Thoracic Surgery (Cardiothoracic Vascular Surgery); Visit Provider Thoracic Surgery (Cardiothoracic Vascular Surgery)
DX: I25.10 Atherosclerotic heart disease of native coronary artery without angina pectoris (principal); Z95.1 Presence of aortocoronary bypass graft
CPT/HCPCS: 93798

== ENCOUNTER → 2024-10-09 | Outpatient (CLI) | payer MEDICARE, OTHER, SELFPAY ==
[2024-09-29 08:14] VITALS: BMI 33.5
== END | disposition home or self-care (01) ==
LOC: LABSPEC 10-10 08:00
PROVIDERS: PCP Family Medicine Geriatric Medicine; Referring Provider Podiatrist; Visit Provider Podiatrist
DX: L03.031 Cellulitis of right toe (principal)
CPT/HCPCS: 87070; 87077; 87186; 87205

== ENCOUNTER → 2024-10-09 | Outpatient (CLI) | payer SELFPAY ==
[2024-09-29 08:14] VITALS: BMI 33.5
== END | disposition home or self-care (01) ==
LOC: LABSPEC 17:53
PROVIDERS: Visit Provider Podiatrist
DX: L03.031 Cellulitis of right toe (principal)
CPT/HCPCS: 87070; 87077; 87186; 87205

== ENCOUNTER → 2024-12-11 | Outpatient (CLI) | payer MEDICARE, OTHER, SELFPAY ==
[2024-09-01 08:23] VITALS: BMI 33.4
[2024-09-29 08:14] VITALS: BMI 33.5
[2024-12-11 11:47] LABS: Hematocrit 43.0 % (40-54); Hemoglobin 13.7 g/dL (13.0-16.5); Immature Granulocytes Count 0.100 X10^3/uL (0.0-0.0); Mean Corp Hgb Conc 31.9 g/dL (32-36); Mean Corpuscular Volume 85.3 fL (80-94); Mean Platelet Vol. 9.4 fl (6.2-12.0); NRBC Flagged by Analyzer 0 % (0-5); Platelet Count 200 K/mm3 (150-450); RBC Distribution Width CV 15.5 % (11.6-14.6); RBC Distribution Width SD 47.8 fl (35.1-43.9); Red Blood Count 5.04 M/mm3 (4.6-6.2); White Blood Count 6.4 K/mm3 (4.4-11.0)
[2024-12-11 12:42] LABS: Cholesterol 109 mg/dL (<=200); Low Density Lipoprotein Calc. 43 mg/dL; Triglycerides 133 mg/dL; Very Low Density Lipoprotein 27 mg/dL (5-40); cholesterol:hdl ratio screen 2.55
[2024-12-11 12:43] LABS: AST(SGOT) 19 U/L (<=37); Alanine Aminotransfer ALT/SGPT 7 U/L (<=46); Albumin, Serum 4.2 g/dL (3.4-4.8); Alkaline Phosphatase 110 U/L (40-129); Anion Gap 11 (5-15); BUN 26 mg/dL (4-19); BUN/Creat Ratio 26.5 RATIO (10-20); Calcium,Total 9.6 mg/dL (7.6-11.0); Carbon Dioxide 26.7 mmol/L (21.0-32.0); Chloride 105 mmol/L (98-108); Globulin 2.8 g/dL (2.2-4.2); Glucose 150 mg/dL (70-99); Potassium 4.4 mmol/L (3.3-5.1)
[2024-12-11 19:37] LABS: Xtra Tube Kwok EXTRA TUBE
== END | disposition home or self-care (01) ==
LOC: POLAB3 11:36
PROVIDERS: PCP Family Medicine Geriatric Medicine; Visit Provider Family Medicine Geriatric Medicine
DX: E78.5 Hyperlipidemia, unspecified (principal); E11.65 Type 2 diabetes mellitus with hyperglycemia; I10 Essential (primary) hypertension
CPT/HCPCS: 36415; 80053; 80061; 83036; 84403; 84443; 85025

== ENCOUNTER → 2024-12-13 | Outpatient (CLI) | payer MEDICARE, OTHER, SELFPAY ==
[2024-09-29 08:14] VITALS: BMI 33.5
--- NOTE | 2024-12-13 10:59 | RAD_ITS ---
PROCEDURE: PELVIS 1 OR 2 VIEWS 12/13/2024 REASON FOR EXAM: PAIN IN LEFT HIP TECHNIQUE: Procedure Code: RADPEL Modality: DX Procedure: PELVIS 1 OR 2 VIEWS COMPARISON: None FINDINGS: The bony pelvis is intact. The SI joints are normal. There is mild degenerative disc disease, L3-4 through L5-S1. There are no soft tissue abnormalities. The hips are unremarkable. There are vascular calcifications in both thighs. RAD/Pelvis 1 or 2 Views IMPRESSION: No significant abnormality of either hip. Other findings as noted. Reading Location: [place] [id number]
--- NOTE | 2024-12-13 10:59 | RAD_ITS ---
PROCEDURE: PELVIS 1 OR 2 VIEWS 12/13/2024 REASON FOR EXAM: PAIN IN LEFT HIP TECHNIQUE: Procedure Code: RADPEL Modality: DX Procedure: PELVIS 1 OR 2 VIEWS COMPARISON: None FINDINGS: The bony pelvis is intact. The SI joints are normal. There is mild degenerative disc disease, L3-4 through L5-S1. There are no soft tissue abnormalities. The hips are unremarkable. There are vascular calcifications in both thighs. RAD/Pelvis 1 or 2 Views IMPRESSION: No significant abnormality of either hip. Other findings as noted. Reading Location: [place] [address]
== END | disposition home or self-care (01) ==
LOC: RAD 10:57
PROVIDERS: PCP Family Medicine Geriatric Medicine; Referring Provider Family Medicine Geriatric Medicine; Visit Provider Family Medicine Geriatric Medicine
DX: M25.552 Pain in left hip (principal)
CPT/HCPCS: 72170

== ENCOUNTER → 2024-12-20 | Outpatient (CLI) | payer MEDICARE, OTHER, SELFPAY ==
[2024-09-29 08:14] VITALS: BMI 33.5
--- NOTE | 2024-12-20 11:29 | US_ITS ---
PROCEDURE: EXT NON VASC LIMITED/SOFT TISS 12/20/2024 REASON FOR EXAM: MASS OF RIGHT UPPER EXTREMITY TECHNIQUE: Procedure Code: [id number] Modality: US Procedure: EXT NON VASC LIMITED/SOFT TISS FINDINGS: Superficial ultrasound in the area of palpable concern near the elbow measures 25 x 24 x 13 mm. This is hypoechoic. The ultrasound features are nonspecific US/Ext Non Vasc Limited/Soft Tiss IMPRESSION: Non-cystic mass in the right forearm near the elbow in the area of concern. Re commend further evaluation with MRI Reading [facility]
--- NOTE | 2024-12-20 17:12 | RAD_ITS ---
PROCEDURE: L/S SPINE MIN 4 VIEWS 12/20/2024 REASON FOR EXAM: LEFT HIP PAIN TECHNIQUE: Procedure Code: RADSPLS Modality: DX Procedure: L/S SPINE MIN 4 VIEWS COMPARISON: None FINDINGS: Multilevel disc osteophyte complexes are present. Alignment is otherwise grossly unremarkable. Degenerative sacroiliac joint change is noted bilaterally. Atherosclerotic aortic calcifications are noted anterior to the lumbar spine. RAD/L/S Spine Min 4 Views IMPRESSION: Degenerative disc disease without acute bony abnormality. Reading [facility]
== END | disposition home or self-care (01) ==
PROVIDERS: PCP Family Medicine Geriatric Medicine; Referring Provider Family Medicine Geriatric Medicine; Visit Provider Family Medicine Geriatric Medicine
DX: R22.31 Localized swelling, mass and lump, right upper limb (principal); M25.552 Pain in left hip
CPT/HCPCS: 72110; 76882

== ENCOUNTER → 2024-12-27 | Outpatient (CLI) | payer MEDICARE, SELFPAY ==
[2024-09-29 08:14] VITALS: BMI 33.5
== END | disposition home or self-care (01) ==
LOC: PSN 08:00
PROVIDERS: PCP Family Medicine Geriatric Medicine; Referring Provider Nurse Practitioner Family; Visit Provider Nurse Practitioner Family
DX: I25.10 Atherosclerotic heart disease of native coronary artery without angina pectoris (principal); I49.3 Ventricular premature depolarization; I49.1 Atrial premature depolarization
CPT/HCPCS: 93225; 93226

== ENCOUNTER → 2025-01-01 | Outpatient (CLI) | payer MEDICARE, OTHER, SELFPAY ==
[2024-09-29 08:14] VITALS: BMI 33.5
--- NOTE | 2025-01-01 17:25 | RAD_ITS ---
PROCEDURE: KNEE 4 OR MORE VIEWS 01/01/2025 REASON FOR EXAM: CELLULITIS OF KNEE TECHNIQUE: Procedure Code: RADKN Modality: DX Procedure: KNEE 4 OR MORE VIEWS Laterality: COMPARISON: 06/02/2023. FINDINGS: No evidence of acute fracture or dislocation. Mild tricompartmental degenerative changes. Patellar enthesophyte. No knee joint effusion. Surgical clips in the soft tissues. RAD/Knee 4 or More Views IMPRESSION: No acute osseous abnormalities. Mild osteoarthrosis. Reading Location: [id number]
--- NOTE | 2025-01-01 17:26 | RAD_ITS ---
EXAM: XR Left Foot Complete, 3 or More Views CLINICAL INDICATION: PAIN TECHNIQUE: Frontal, lateral and oblique views of the left foot. COMPARISON: No relevant prior studies available. FINDINGS: BONES/JOINTS: Mild degenerative changes of the intertarsal joints. No acute fracture. No dislocation. SOFT TISSUES: Soft tissue swelling. VASCULATURE: Vascular calcification. RAD/Foot min 3 Views IMPRESSION: Degenerative changes as above. Reading Location: [id number]
--- NOTE | 2025-01-01 17:30 | RAD_ITS ---
EXAM: XR Left Ankle Complete, 3 or More Views CLINICAL INDICATION: PAIN TECHNIQUE: Frontal, lateral and oblique views of the left ankle. COMPARISON: No relevant prior studies available. FINDINGS: BONES/JOINTS: See below. SOFT TISSUES: Well corticated bony fragment in the inferior medial malleolus with overlying soft tissue swelling and emphysema. This could be an avulsion fracture. VASCULATURE: Vascular calcification. RAD/Ankle min 3 Views IMPRESSION: Well corticated bony fragment in the inferior medial malleolus with overlying s oft tissue swelling and emphysema. This could be an avulsion fracture. Reading Location: [id number]
--- OUTSIDE RECORDS SUMMARY | 2025-01-01 19:31 | XMS RPT_ITS | CCD ---
Author Organization [facility] Care Team Providers Care Academic Affairs Assistant Name Role Phone Sabiha ADLER, Charity Perry Unavailable Unavailable StevenRosa ramos Unavailable Hailey Huerta Unavailable Unavailable Hailey Huerta Unavailable Unavailable Steven, Rosa L Unavailable Fredis Moon Chi Primary Care Provider 1([facility])[phone] Red, Dr. Fredis Schaefer Primary Care Provider 1([facility])[phone] Red, Dr. Fredis Schaefer Referring Provider 1([facility])[phone] Josias Turk Attending Provider 1([facility])[phone] Red, Dr. Fredis Schaefer Primary Care Provider 1([facility])[phone] Dr. Krish Nagel Attending Provider 1([facility])[phone] Red, Dr. Fredis Schaefer Primary Care Provider 1([facility])[phone] Dr. Krish Nagel Attending Provider 1([facility])[phone] Red, Dr. Fredis Schaefer Primary Care Provider 1([facility])[phone] Red, Dr. Fredis Schaefer Referring Provider 1([facility])[phone] David HOME HEALTH LPN, HOME HEALTH LPN-C Mi Attending Provider Red, Dr. Fredis Schaefer Primary Care Provider Red, Dr. Fredis Schaefer Referring Provider 1([facility])[phone] David HOME HEALTH LPN, HOME HEALTH LPN-C Mi Attending Provider Unavailable Primary Care Provider Unavailbianka Moon MD, Kelsey Primary Care Provider Chante Hong RN Unavailable Unavailable Red SCHMITT, Dr. Fredis Schaefer Primary Care Provider 1([facility] )[phone] Red SCHMITT, Dr. Fredis Schaefer Attending Provider 1([facility])[phone] Red SCHMITT, Dr. Fredis Schaefer Referring Provider Esteban SCHMITT, Dr. Davies Attending Provider Esteban SCHMITT, Dr. Davies Referring Provider Kriss SCHMITT, Dr. Klein Attending Provider Esteabn SCHMITT, Dr. Davies Other Provider Anna Marie NOVA, Raven Griffith Attending Provider Red SCHMITT, Dr. Fredis Schaefer Admit Provider Red SCHMITT, Kelsey Primary Care Provider [phone] Chante Hong RN Unavailable Unavailable Lilliana Romeo I. Unavailable [phone] Red SCHMITT, Dr. Fredis Schaefer Primary Care Provider [phone] Red SCHMITT, Dr. Fredis Schaefer Attending Provider Krista SCHMITT, Dr. Klein Attending Provider Krista SCHMITT, Dr. Klein Referring Provider Mi Styles Attending Provider David HINTON-Mi Esqueda Other Provider Red SCHMITT, Dr. Fredis Schaefer Primary Care Provider [phone] Esteban SCHMITT, Dr. Davies Attending Provider Red [...] Dr. Fredis Schaefer Primary Care Provider [phone] Esteban SCHMITT, Dr. Davies Attending Provider Esteban [...] SCHMITT, Dr. Fredis Schaefer Referring Provider [phone] Red SCHMITT, Dr. Fredis Schaefer Attending Provider [...] Unavailable Red, Fredis Chi Attending Unavailable Barron Olson Attending Unavailable Barron Olson Referring Unavailable Red, [...] Care Unavailable Red, Fredis Chi Referring Unavailable Erd, Fredis Chi Attending Unavailable Esteban, Samson Attending [...] Unavailable Red, Fredis Chi Referring Unavailable Fabricio HOME HEALTH LPNWagner Attending Unavailable Red, Fredis Chi Primary Care [...] Red, Fredis Chi Primary Care Unavailable Roof HOME HEALTH LPN, Wagner H Referring Unavailable Red, Fredis Chi Primary Care Unavailable Roof HOME HEALTH LPN, Wagner H Attending Unavailable Velasco, Daysi Referring Unavailable Velasco, Daysi Attending Unavailable Red, Fredis Chi Primary Care Unavailable Allergies Allergy Classification Reported Allergen(s) Allergy Type Date of Onset Reaction(s) Facility (5 sources) Hmg-Coa Reductase Inhibitors (Statins) drug [facility] Work Phone: (5 sources) rosuvastatin Drug Allergy 5 flu like symptoms [facility] Work Phone: (20 sources) Adhesive Tape; Translations: [adhesive tape] Propensity to adverse reactions 1 skin tears [facility] (20 sources) rosuvastatin Drug Allergy 5 Flu like symptoms [facility] (2 sources) Adhesive Tape-Silicones Drug Allergy 2 Rash [facility] (13 sources) Adhesive Tape Drug Allergy 9 [facility] (1 source) rosuvastatin Drug Allergy 5 [facility] Repository Medications Current Medications Medication Drug Class(es) [...] TBEC One tablet by mouth daily ASPIRIN [id number] Charity Landis RN Start: 12-18-2016 End: 05-16-2024 take 1 tablet by mouth once daily ASPIRIN EC 81 MG TBEC One tablet by mouth daily ASPIRIN 64954496833 Charity Landis RN Start: 10-06-2012 End: 11-21-2014 take 1 tablet by mouth once daily ASPIRIN 81 MG TABS One tablet by mouth daily ASPIRIN [id number] Josias Turk MD Start: 04-03-2009 aspirin(ECOTRI N LOW STRENGTH 81 MG TAB) Take one(1) tablet three times per week 0 04/03/2009 Active ASPIRIN 81 MG TA BS ASPIRIN [id number] Luis Escamilla DO Comment on above: Take [...] One tablet by mouth daily ATORVASTATIN CALCIUM [id number] Josias Turk MD End: 05-16-2024 Calcium Carb-Vitamin [...] tablets by mouth twice daily METFORMIN HCL [id number] Josias Turk MD Start: 10-06-2012 take 2 tablets by mo ut once daily METFORMIN HCL 500 MG TABS Two tablets by mouth daily METFORMIN HCL [id number] Josias Turk MD Start: 02-15-2012 take 2 tablets by mo ut every hour metFORMIN ER 500 mg 24 hr tablet Take by mouth two tablets every moning 60 tablet 11 02/15/2012 Active Start: 05-12-2011 METFORMIN HCL 500 MG TABS METFORMIN HCL 47696522588 Luis Escamilla DO Comment on above: Take [...] Active METOPROLOL SUCCI HUNTER ER 25 MG [id number] METOPROLOL SUCCINATE [id number] Luis Escamilla DO Comment on above: Take [...] by tres once daily MYRBETRIQ 50 MG [id number] One tablet by mouth daily MIRABEGRON [id number] Josias Turk MD Propylene glycol (8 sources) [...] PE N One injection once weekly. ALBIGLUTIDE [id number] Alexandra Baum NP 20 ml albumin human, nursing home 250 mg/ml injection (4 sources) Human Serum [...] by mouth daily CALCIUM CARBONATE-VITAMIN D TABS [id number] Josias Turk MD CALCIUM 500/KATIE MIN D TABS CALCIUM CARBONATE-VITAMIN D TABS 89506593103 Luis Matilde Escamilla DO Calcium 600 + [...] by mouth daily CALCIUM CARBONATE-VITAMIN D TABS [id number] Josias Turk MD Start: 04-08-2010 take 1 tablet by tres th once daily calcium carbonate 600 mg-cholecalciferol 200 units (CALCIUM 600 + D,3,) 600 mg(1,500mg) -200 unit ORAL Tab Take one(1) tablet daily. 0 04/08/2010 Active CALCIUM 500/KATIE MIN D TABS CALCIUM CARBONATE-VITAMIN D TABS 45191059178 Luis Escamilla DO Comment on above: Take [...] One tablet by mouth daily CHROMIUM TABS [id number] Josias Turk MD Start: 05-15-2013 take 1 tablet by tres th once daily CHROMIUM GTF TABS One tablet by mouth daily CHROMIUM TABS [id number] Josias Turk MD Start: 05-15-2013 take 1 tablet by tres once daily CHROMIUM GTF TABS One tablet by mouth daily CHROMIUM TABS [id number] Josias Turk MD Start: 05-15-2013 End: 11-21-2014 take 1 tablet by mouth once daily CHROMIUM GTF TABS One tablet by mouth daily CHROMIUM TABS 83342749586 Josias Turk MD cinnamon bark 500 mg [...] Start: 12-21-2016 take 2 tablets by mo [facility] once daily CINNAMON 500 MG CAPS Two tablets by mouth daily CINNAMON [id number] Josias Turk MD Start: 05-15-2013 End: 11-21-2014 take 1 tablet by mouth twice daily CINNAMON 500 MG CAPS One tablet by mouth twice daily CINNAMON [id number] Josias Turk MD ciprofloxacin 500 mg oral [...] 1:43pm docusate sodium 50 mg / sennosides, nursing home 8.6 mg oral tablet (2 sources) Start: [...] CAPS One tablet by mouth daily DUTASTERIDE [id number] Josias Turk MD EPINEPHrine 5mg in 0.9% sodium chloride 250 mL infusion (weight-based) (2 sources) Start: 05-10-2024 End: 05-11-2024 EXENATIDE SOLN (20 sources) GLP-1 Receptor Agonist Start: 05-15-2013 take 10 ug by subcutaneous injection twice daily BYETTA 10 MCG PEN SOPN SQ twice daily EXENATIDE SOLN [id number] Josias Turk MD Start: 05-15-2013 inject 10 ug by subc utaneous injection twice daily BYETTA 10 MCG PEN SOPN SQ twice daily EXENATIDE SOLN [id number] Josias Turk MD Start: 05-15-2013 End: 12-21-2016 inject 10 ug by subcutaneous injection twice daily BYETTA 10 MCG PEN SOPN SQ twice daily EXENATIDE SOLN [id number] Josias Turk MD Start: 05-15-2013 inject 10 ug by subc utaneous injection twice daily BYETTA 10 MCG PEN SOPN SQ twice daily EXENATIDE SOLN [id number] Josias Turk MD Start: 10-06-2012 BYETTA 10 MCG PEN SOPN as directed EXENATIDE SOLN [id number] Josias Turk MD Start: 10-06-2012 End: 05-15-2013 BYETTA 10 MCG PEN SOPN as directed EXENATIDE SOLN [id number] Josias Turk MD Start: 10-06-2012 BYETTA 10 MCG PEN SOPN as directed EXENATIDE SOLN [id number] Josias Turk MD Start: 10-06-2012 End: 05-15-2013 BYETTA 10 MCG PEN SOPN as directed EXENATIDE SOLN [id number] Josias Turk MD Start: 10-06-2012 BYETTA 10 MCG PEN SOPN as directed EXENATIDE SOLN [id number] Josias Turk MD Start: 10-06-2012 End: 05-15-2013 BYETTA 10 MCG PEN SOPN as directed EXENATIDE SOLN [id number] Josias Turk MD Start: 10-28-2011 exenatide (BYE TTA) 10 mcg/0.04 mL PnIj Inject twice daily before meals 1 Pen 11 10/28/2011 Active End: 10-06-2012 BYETTA 10 MCG PEN SOPN 10/06 EXENATIDE SOLN [id number] Josias Turk MD End: 10-06-2012 BYETTA 10 MCG PEN SOPN 10/06 EXENATIDE SOLN [id number] Josias Turk MD BYETTA 10 MCG PE N SOPN EXENATIDE SOLN [id number] Luis Steelemudez DO BYETTA 10 MCG PE N SOPN EXENATIDE SOLN [id number] Luis Escamilla DO End: 10-06-2012 BYETTA 10 MCG PEN SOPN 10/06 EXENATIDE SOLN [id number] Josias Turk MD Comment on above: Inject [...] TABS One tablet by mouth daily FAMOTIDINE [id number] Josias Turk MD finasteride 5 mg oral [...] TABS One tablet by mouth daily FINASTERIDE [id number] Raven Thrasher PA-C fluticasone propionate 0.05 mg/actuat metered dose nasal spray (10 sources) Corticosteroid End: 05-15-2013 FLUTICASONE PROPIONATE 50 MCG/ACT SUSP once daily FLUTICASONE PROPIONATE [id number] Deni Lu furosemide 40 mg oral tablet [...] End: 10-06-2012 GABAPENTIN TABS G ABAPENTIN TABS [id number] Joisas Turk MD GABAPENTIN TABS GABAPENTIN TABS [id number] Luis Escamilla DO End: 10-06-2012 GABAPENTIN TABS G ABAPENTIN TABS [id number] Josias Turk MD Comment on above: Takes 1-2 daily glimepiride 4 mg oral tablet (20 sources) Sulfonylurea Start: 10-06-2012 End: 12-21-2016 take 1 tablet by mouth twice daily GLIMEPIRIDE 2 MG TABS One tablet by mouth twice daily GLIMEPIRIDE [id number] Josias Turk MD Start: 02-15-2012 take 0.5 tablet by m out once daily glimepiride 4 mg tablet Take by mouth 1/2 tab daily 15 tablet 11 02/15/2012 Active GLIMEPIRIDE 4 MG TABS GLIMEPIRIDE [id number] Luis Escamilla DO Comment on above: Take by mouth 1/2 ta b daily glucagon (rdna) 1 mg injecti on (2 sources) Antihypoglycemic Agent Start: 05-10-2024 End: 05-16-2024 50 ml glucose 50 mg/ml injec tion (4 sources) Start: 05-10-2024 End: 05-16-2024 Start: 05-10-2024 End: 05-16-2024 GLUCOSE BLOOD (2 sources) End: 10-06-2012 ACCU-CHEK CLARITZA STRP GLUCOSE BLOOD [id number] Josias Turk MD ACCU-CHEK CLARITZA STRP GLUCOSE BLOOD [id number] Luis Escamilla DO GLUCOSE BLOOD (8 sources) ACCU-CHEK CLARITZA STRP GLUCOSE BLOOD [id number] Luis Escamilla DO End: 10-06-2012 ACCU-CHEK CLARITZA STRP GLUCOSE BLOOD [id number] Josias Turk MD glycerin 2 mg/ml / hypromellose 2 mg/ml / polyethylene glycol 400 10 mg/ml ophthalmic solution (17 sources) Non-Standardized Chemical Allergen Start: 05-16-2024 End: 06-06-2024 Peg 759-Zxhhunvzhbsy-Ekbndamv (Artificial Tears(Lw-Yflw-Vxac)) 1-0.2-0.2 % drops Discontinued 1 NMA EACH EYE THREE TIMES A DAY as needed for dry eyes May 16, 2024 12:00am June 06, 2024 7:17pm 0.5 ml heparin sodium, porcine 65916 unt/ml prefilled syringe (2 sources) Unfractionated Heparin, Anti-coagulant Start: 05-11-2024 End: 05-16-2024 hydroCHLOROthiazide 12.5 mg oral capsule (12 sources) Thiazide Diuretic Start: 06-01-2011 take 1 capsule by mouth once daily Hydrochlorothiazide 12.5 mg ORAL capsule Take 1 capsule by mouth once daily. 90 capsule 4 06/01/2011 Active End: 10-06-2012 HYDROCHLOROTHIAZIDE 12.5 MG TABS HYDROCHLOROTHIAZIDE [id number] Luis Escamilla DO Comment on above: Take 1 capsule by [facility] once daily. insulin glargine 100 unt/ml [...] LANTUS SOLN as directed INSULIN GLARGINE SOLN [id number] Josias Turk MD Start: 10-06-2012 End: 12-21-2016 LANTUS SOLLandon as directed INSULIN GLARGINE SOLN [id number] Josias Turk MD Start: 10-06-2012 LANTUS SOLN as directed INSULIN GLARGINE SOLN [id number] Josias Turk MD Start: 05-15-2011 insulin glargi [...] Active LANTUS SOLN INSU MARTIN GLARGINE SOLN [id number] Luis Escamilla DO Comment on above: Inject [...] NEEDLES 29G X 12MM INSULIN PEN NEEDLE [id number] Josias Turk MD EASY TOUCH PEN N EEDLES 29G X 12MM INSULIN PEN NEEDLE [id number] Luis Escamilla DO 100 ml insulin, regular, [...] 2 % CREA as directed MICONAZOLE NITRATE [id number] Josias Turk MD Start: 03-01-2012 End: 10-06-2012 MICONAZOLE 7 2 % CREA once d aily in AM to genital area MICONAZOLE NITRATE [id number] Josias Turk MD Start: 03-01-2012 MICONAZOLE 7 2 % CREA once daily in AM to genital area MICONAZOLE NITRATE [id number] Deni Lu Start: 03-01-2012 End: 10-06-2012 MICONAZOLE 7 2 % CREA once d aily in AM to genital area MICONAZOLE NITRATE [id number] Deni Lu Miconazole Nitra te 2 % [...] One-half tablet by mouth twice daily NIACIN [id number] Josias Turk MD take 1 tablet by tres th twice daily at mealtime niacin sustained release 500 mg tablet Indications: Type II or unspecified type diabetes mellitus without mention of complication, uncontrolled Take 500 mg by mouth twice daily with meals. 0 Active NIACIN 500 MG TA NIACIN [id number] Luis Escamilla DO Comment on above: Take 500 mg by mouth twice daily with meals. norepinephrine (Levophed) 16 mg in 0.9% sodium chloride 250 mL infusion (weight based) (premix) (2 sources) Start: 05-10-2024 End: 05-12-2024 Orient 5-Xzd-Dpq-Fish Oil (Fish Oil) 60-90-500 mg capsule (20 sources) Start: 01-21-2022 End: 12-30-2022 Orient 6-Bwp-Mbp-Fish Oil (Fish Oil) 60-90-500 mg capsule Discontinued 1 NMA PO DAILY January 21, 2022 1:00am December 30, 2022 10:41pm Start: 01-21-2022 End: 12-30-2022 take 1 capsule by mouth once daily Orient 8-Fbe-Emh-Fish Oil (Fish Oil) 60-90-500 mg capsule Discontinued 1 CAP PO DAILY January 21, 2022 1:00am December 30, 2022 10:41pm Start: 01-21-2022 End: 12-30-2022 take 1 capsule by mouth once daily Orient 7-Pwu-Tsd-Fish Oil (Fish Oil) 60-90-500 mg capsule Discontinued 1 CAP PO DAILY January 21, 2022 12:00am December 30, 2022 9:41pm Start: 01-21-2022 take 1 capsule by [facility] once daily Orient 0-Ydg-Nun-Fish Oil (Fish Oil) 60-90-500 mg capsule Active 1 CAP PO DAILY January 21, 2022 1:00am omega-3 acid ethyl esters (nursing home) 1000 mg oral capsule (12 sources) Start: 12-21-2011 End: 12-20-2015 omega-3 acid ethyl esters (LOVAZA) 1 gram capsule Indications: Type II or unspecified type diabetes mellitus without mention of complication, uncontrolled Take 2 capsules by mouth twice daily. 120 capsule 11 12/21/2011 Active Comment on above: Take 2 capsules by [facility] twice daily. OMEGA-3 FATTY ACIDS CPDR (2 sources) OMEGA 3 CPDR OME GA-3 FATTY ACIDS CPDR [id number] Luis Matilde SteeleEscamilla End: 10-06-2012 OMEGA 3 CPDR OMEG A-3 FATTY ACIDS CPDR 10780523415 Josias Turk MD OMEGA-3 FATTY ACIDS CPDR (8 sources) OMEGA 3 CPDR OME GA-3 FATTY ACIDS CPDR 15115061870 Luis Matilde Escamilla DO End: 10-06-2012 OMEGA 3 CPDR OMEG A-3 FATTY ACIDS CPDR [id number] Josias Turk MD 24 hr oxybutynin chloride [...] One tablet by mouth daily OXYBUTYNIN CHLORIDE 70751454602 Josias Turk MD oxyCODONE hydrochloride 5 mg [...] Start: 05-10-2024 End: 05-11-2024 polyethylene glycol 3350 75487 mg powder for oral solution (2 sources) [...] tablet by mouth at bedtime. PRAVASTATIN SODIUM 47139079564 Raven Thrasher PA-C 100 ml propofol 10 [...] One tablet by mouth daily SITAGLIPTIN PHOSPHATE [id number] Alexandra Baum NP 5 ml sodium chloride [...] 0.025 % CREA as directed TRIAMCINOLONE ACETONIDE [id number] Josias Turk MD End: 05-16-2024 triamcinolone (Kenalog) 0.1 % ointment Apply topically. Active triamcinolone (K enalog) 0.1 % lotion Apply 1 Application topically Daily as needed. Active vardenafil 10 mg disintegrating oral tablet (10 sources) Phosphodiesterase 5 Inhibitor End: 05-15-2013 STAXYN 10 MG TBDP as needed VARDENAFIL HCL 07145453702 Deni Lu Vibegron (20 sources) Start: 01-21-2022 [...] 1 000 MCG/15ML LIQD injections monthly CYANOCOBALAMIN [id number] Josias Turk MD Start: 05-15-2013 VITAMIN B-12 1 000 MCG/15ML LIQD injections monthly CYANOCOBALAMIN [id number] Josias Turk MD Start: 05-15-2013 VITAMIN B-12 1 000 MCG/15ML LIQD injections monthly CYANOCOBALAMIN [id number] Josias Turk MD (8 sources) Start: 05-10-2024 [...] disease (20 sources) Atherosclerotic heart disease of [place] coronary artery without angina pectoris; Translations: [Coronary [...] function study,I25.10 - Atherosclerotic heart disease of [place] coronary artery without angina pectoris Unclassified (13 [...] 12-20-2024 Ext Non Vasc Limited/Soft Tiss Normal [facility] L/S Spine Min 4 Viewson 11-23 L/S Spine Min 4 Views Normal [facility] Pelvis 1 or 2 Viewson 2024 Pelvis 1 or 2 Views Normal [facility] CBC W/Diff, Automatedon 11-23 Absolute Lymph 1.41 X10 3/uL Normal 0.83-4.51 [facility] Comment on above: Performed By: #### L 501.9985, L509.3001, L500.4050, L100.0100, L500.4100, L501.9520 ####[facility] [address] [place], [address] Absolute Neut 3.8 X10 3/uL Normal 2.0-7.7 [facility] Comment on above: Performed By: #### L 501.9985, L509.3001, L500.4050, L100.0100, L500.4100, L501.9520 ####[facility] [address] [place], [address] Basophils/100 WBC (Bld) 0.8 % Normal 0-1 [facility] Comment on above: Performed By: #### L 501.9985, L509.3001, L500.4050, L100.0100, L500.4100, L501.9520 ####[facility] [address] [place], [address] Eosinophils/100 WBC (Bld) 2.4 % Normal 0-5 [facility] Comment on above: Performed By: #### L 501.9985, L509.3001, L500.4050, L100.0100, L500.4100, L501.9520 ####[facility] [address] [place], [address] Erythrocyte distribution width (RBC) [Ratio] 15.5 % High 11.6-14.6 [facility] Comment on above: Performed By: #### L 501.9985, L509.3001, L500.4050, L100.0100, L500.4100, L501.9520 ####[facility] [address] [place], [address] Hematocrit (Bld) [Volume fraction] 43.0 % Normal 40-54 [facility] Comment on above: Performed By: #### L 501.9985, L509.3001, L500.4050, L100.0100, L500.4100, L501.9520 ####[facility] [address] [place], [address] Hemoglobin (Bld) [Mass/Vol] 13.7 g/dL Normal 13.0-16.5 [facility] Comment on above: Performed By: #### L 501.9985, L509.3001, L500.4050, L100.0100, L500.4100, L501.9520 ####[facility] [address] [place], [address] IG% 1.600 High 0.0-0.9 [facility] Comment on above: Result Comment: IG% - Immature Granulocytes (promyelocytes, myelocytes andmetamyelocytes) > 1% indicates that a LEFT SHIFT is Present. Performed By: #### L 501.9985, L509.3001, L500.4050, L100.0100, L500.4100, L501.9520 ####[facility] [address] [place], [address] Lymphocytes/100 WBC (Bld) 22.1 % Normal 19-41 [facility] Comment on above: Performed By: #### L 501.9985, L509.3001, L500.4050, L100.0100, L500.4100, L501.9520 ####[facility] [address] [place], [address] MCH (RBC) [Entitic mass] 27.2 pg Normal 27.0-32.0 [facility] Comment on above: Performed By: #### L 501.9985, L509.3001, L500.4050, L100.0100, L500.4100, L501.9520 ####[facility] [address] [place], [address] MCHC (RBC) [Mass/Vol] 31.9 g/dL Low 32-[address] [facility] Comment on above: Performed By: #### L 501.9985, L509.3001, L500.4050, L100.0100, L500.4100, L501.9520 ####[facility] [address] [place], [address] MCV (RBC) [Entitic vol] 85.3 fL Normal 80-94 [facility] Comment on above: Performed By: #### L 501.9985, L509.3001, L500.4050, L100.0100, L500.4100, L501.9520 ####[facility] [address] [place], [address] Monocytes/100 WBC (Bld) 13.7 % High 0-10 [facility] Comment on above: Performed By: #### L 501.9985, L509.3001, L500.4050, L100.0100, L500.4100, L501.9520 ####[facility] [address] [place], [address] Neutrophils/100 WBC (Bld) 59.4 % Normal 47-70 [facility] Comment on above: Performed By: #### L 501.9985, L509.3001, L500.4050, L100.0100, L500.4100, L501.9520 ####[facility] [address] [place], [address] Nucleated RBC (Bld) [#/Vol] 0 10*3/uL Normal 0-5 [facility] Comment on above: Performed By: #### L 501.9985, L509.3001, L500.4050, L100.0100, L500.4100, L501.9520 ####[facility] [address] [place], [address] Platelet mean volume (Bld) [Entitic vol] 9.4 fL Normal 6.2-12.0 [facility] Comment on above: Performed By: #### L 501.9985, L509.3001, L500.4050, L100.0100, L500.4100, L501.9520 ####[facility] [address] [place], [address] Platelets (Bld) [#/Vol] 200 10*3/uL Normal 150-450 [facility] Comment on above: Performed By: #### L 501.9985, L509.3001, L500.4050, L100.0100, L500.4100, L501.9520 ####[facility] [address] [place], [address] RBC (Bld) [#/Vol] 5.04 10*6/uL Normal 4.6-6.2 [facility] Comment on above: Performed By: #### L 501.9985, L509.3001, L500.4050, L100.0100, L500.4100, L501.9520 ####[facility] [address] [place], [address] RDW SD 47.8 fl High 35.1-43.9 [facility] Comment on above: Performed By: #### L 501.9985, L509.3001, L500.4050, L100.0100, L500.4100, L501.9520 ####[facility] [address] [place], [address] WBC (Bld) [#/Vol] 6.4 10*3/uL Normal 4.4-11.0 [facility] Comment on above: Performed By: #### L 501.9985, L509.3001, L500.4050, L100.0100, L500.4100, L501.9520 ####[facility] [address] [place], [address] Comprehensive Metabolic Prof ilon 12-11-2024 Albumin [Mass/Vol] 4.2 g/dL Normal 3.4-4.8 [facility] Comment on above: Performed By: #### L 501.9985, L509.3001, L500.4050, L100.0100, L500.4100, L501.9520 ####[facility] [address] [place], [address] Albumin/Globulin [Mass ratio] 1.5 {ratio} Normal 0.9-2.4 [facility] Comment on above: Performed By: #### L 501.9985, L509.3001, L500.4050, L100.0100, L500.4100, L501.9520 ####[facility] [address] [place], [address] ALK PHOS 110 U/L Normal 40-129 [facility] Comment on above: Performed By: #### L 501.9985, L509.3001, L500.4050, L100.0100, L500.4100, L501.9520 ####[facility] [address] [place], [address] ALT [Catalytic activity/Vol] 7 U/L Normal <=46 [facility] Comment on above: Performed By: #### L 501.9985, L509.3001, L500.4050, L100.0100, L500.4100, L501.9520 ####[facility] [address] [place], [id number] AST [Catalytic activity/Vol] 19 U/L Normal <=37 [facility] Comment on above: Result Comment: Hemo lysis present, Results??could be affected.?? Performed By: #### L 501.9985, L509.3001, L500.4050, L100.0100, L500.4100, L501.9520 ####[facility] [address] [place], [address] Bilirubin [Mass/Vol] 0.34 mg/dL Normal 0.00-1.30 [facility] Comment on above: Performed By: #### L 501.9985, L509.3001, L500.4050, L100.0100, L500.4100, L501.9520 ####[facility] [address] [place], [address] BUN/CRE 26.5 RATIO High 10-20 [facility] Comment on above: Performed By: #### L 501.9985, L509.3001, L500.4050, L100.0100, L500.4100, L501.9520 ####[facility] [address] [place], [address] Calcium [Mass/Vol] 9.6 mg/dL Normal 7.6-11.0 [facility] Comment on above: Performed By: #### L 501.9985, L509.3001, L500.4050, L100.0100, L500.4100, L501.9520 ####[facility] [address] [place], [address] Chloride [Moles/Vol] 105 mmol/L Normal 98-108 [facility] Comment on above: Performed By: #### L 501.9985, L509.3001, L500.4050, L100.0100, L500.4100, L501.9520 ####[facility] [address] [place], [address] CO2 [Moles/Vol] 26.7 mmol/L Normal 21.0-32.0 [facility] Comment on above: Performed By: #### L 501.9985, L509.3001, L500.4050, L100.0100, L500.4100, L501.9520 ####[facility] [address] [place], [address] Creatinine [Mass/Vol] 0.99 mg/dL Normal 0.70-1.[address] [facility] Comment on above: Performed By: #### L 501.9985, L509.3001, L500.4050, L100.0100, L500.4100, L501.9520 ####[facility] [address] [place], [address] GAP 11 Normal 5-15 [facility] Comment on above: Performed By: #### L 501.9985, L509.3001, L500.4050, L100.0100, L500.4100, L501.9520 ####[facility] [address] [place], [address] GFR/1.73 sq M.predicted among non-blacks MDRD (S/P/Bld) [Vol rate/Area] 76 mL/min/{1.73_m2} Normal >60 [facility] Comment on above: Result Comment: mL/m in/1.73m2 CKD-EPI Creatinine Equation (2020) Performed By: #### L 501.9985, L509.3001, L500.4050, L100.0100, L500.4100, L501.9520 ####[facility] [address] [place], [address] Globulin (S) [Mass/Vol] 2.8 g/dL Normal 2.2-4.2 [facility] Comment on above: Performed By: #### L 501.9985, L509.3001, L500.4050, L100.0100, L500.4100, L501.9520 ####[facility] [address] [place], [address] Glucose [Mass/Vol] 150 mg/dL High 70-99 [facility] Comment on above: Performed By: #### L 501.9985, L509.3001, L500.4050, L100.0100, L500.4100, L501.9520 ####[facility] [address] [place], [address] Potassium [Moles/Vol] 4.4 mmol/L Normal 3.3-5.[address] [facility] Comment on above: Result Comment: Hemo lysis present, Results??could be affected.?? Performed By: #### L 501.9985, L509.3001, L500.4050, L100.0100, L500.4100, L501.9520 ####[facility] [address] [place], [address] Sodium [Moles/Vol] 142 mmol/L Normal 133-145 [facility] Comment on above: Performed By: #### L 501.9985, L509.3001, L500.4050, L100.0100, L500.4100, L501.9520 ####[facility] [address] [place], [address] T PROT 7.0 g/dL Normal 5.9-8.4 [facility] Comment on above: Performed By: #### L 501.9985, L509.3001, L500.4050, L100.0100, L500.4100, L501.9520 ####[facility] [address] [place], [address] Urea nitrogen [Mass/Vol] 26 mg/dL High 4-19 [facility] Comment on above: Performed By: #### L 501.9985, L509.3001, L500.4050, L100.0100, L500.4100, L501.9520 ####[facility] [address] [place], [address] Hemoglobin A1con 12-11-2024 HbA1c (Bld) [Mass fraction] 7.0 % High <=5.6 [facility] Comment on above: Result Comment: Norm al < 5.7 % Prediabetic 5.7 - 6.4 % Diabetic >or= 6.5 % Please note range changes. Performed By: #### L 501.9985, L509.3001, L500.4050, L100.0100, L500.4100, L501.9520 ####[facility] [address] [place], [address] L509.3001on 12-11-2024 Testosterone [Mass/Vol] 70.70 ng/dL Low 300-720 [facility] Comment on above: Performed By: #### L 501.9985, L509.3001, L500.4050, L100.0100, L500.4100, L501.9520 ####[facility] [address] [place], [address] Lipid Profileon 12-11-2024 CHOL:HDL 2.55 Normal [facility] Comment on above: Performed By: #### L 501.9985, L509.3001, L500.4050, L100.0100, L500.4100, L501.9520 ####[facility] [address] [place], [address] Cholesterol [Mass/Vol] 109 mg/dL Normal <=200 [facility] Comment on above: Result Comment: Chol esterol level, Desirable <200 mg/dLBorderline high cholesterol 200-239 mg/dLHigh cholesterol >=240 mg/dLRecommendations of the NCEP Adult Treatment Panel for thefollowing risk-cutoff thresholds for the [place] Americanpulation. Performed By: #### L 501.9985, L509.3001, L500.4050, L100.0100, L500.4100, L501.9520 ####[facility] [address] [place], [address] Cholesterol in HDL [Mass/Vol] 43 mg/dL Normal [facility] Comment on above: Result Comment: Rianna onal Cholesterol Education Program (NCEP) guidelines:<40 mg/dL: Low HDL-cholesterol (major risk factor for CHD)>= 60 mg/dL: High HDL-cholesterol (negative risk factor forCHD)HDL-cholesterol is affected by a number of factors, e.g.smoking, exercise, hormones, sex and age. Performed By: #### L 501.9985, L509.3001, L500.4050, L100.0100, L500.4100, L501.9520 ####[facility] [address] [place], [address] Cholesterol in LDL [Mass/Vol] 43 mg/dL Normal [facility] Comment on above: Result Comment: Bord bujhqy=335-764 mg/dL Higher Gbcj=154 mg/dL or greaterSampson Equation 2020 for LDL-C Performed By: #### L 501.9985, L509.3001, L500.4050, L100.0100, L500.4100, L501.9520 ####[facility] [address] [place], [address] Cholesterol in VLDL [Mass/Vol] 27 mg/dL Normal 5-40 [facility] Comment on above: Performed By: #### L 501.9985, L509.3001, L500.4050, L100.0100, L500.4100, L501.9520 ####[facility] [address] [place], [address] Triglyceride [Mass/Vol] 133 mg/dL Normal [facility] Comment on above: Result Comment: The drugs N-Acetylcysteine and Metamizole may falselydepress this assay.Normal range: <150 mg/dLBorderline High: 150-199 mg/dLHigh: 200-499 mg/dLVery High: >500 mg/dL Performed By: #### L 501.9985, L509.3001, L500.4050, L100.0100, L500.4100, L501.9520 ####[facility] [address] [place], [address] Thyroid Stim Hormone (TSH)on 12-11-2024 TSH 2.920 uIU/mL Normal 0.300-4.200 [facility] Comment on above: Performed By: #### L 501.9985, L509.3001, L500.4050, L100.0100, L500.4100, L501.9520 ####[facility] [address] [place], [address] Wound Cultureon 10-13-2024 WC Normal [facility] Comment on above: Performed By: #### M 100.1999, M100.2999 ####[facility] [address] [place], [address] Performed By: #### M 100.3000, ####[facility] [address] [place], [address] Gram Stainon 10-10-2024 GS Gram Stain No organisms seen No Epithelial cells Normal [facility] Comment on above: Performed By: #### M 100.1999 #### [facility] [address] [place], [address] Performed By: #### M 100.1999, M100.3000 ####[facility] [address] [place], [address] Performed By: #### M 100.3000, M1.1999 ####[facility] [address] [place], [address] Gram stainOrdered By: Seferino Olson on 10-09-2024 Microscopic observation Gram stain Nom (Unsp spec) [facility] Routine wound cultureOrdered By: Barron Olson on 10-09-2024 Microbial culture, routine Staphylococcus lugdunensis Abnormal [facility] Culture, Anaerobic Any Sourc melina 10-08-2024 CUAN No growth in 5 days. Normal [facility] Comment on above: Performed By: #### M 100.4001, M100.2000, M100.3000, L8200.1075 ####[facility] [address] [place], [address] Lyme Antibodies,W Bloton Lyme Additional Comment Normal . [facility] Comment on above: Result Comment: Per CDC [...] 30 or more days of symptoms.Performed at: [address] [id number] Director: Lucas Sorto MD, Phone: [phone] Performed By: #### L 7000.5800, L509.3001 ####[facility] [address] [place], [address] LYME IgG INTERP Negative Normal Negative [facility] Comment on above: Performed By: #### L 7000.5800, L509.3001 ####[facility] [address] [place], [address] LYME IgM INTERP Negative Normal Negative [facility] Comment on above: Result Comment: Destiny dan Note: Lyme immunoblot alone is not recommended forthe diagnosis of Lyme disease. Current guidelines recommendthe use of a two-tiered approach to Lyme serology testingto improve the sensitivity and specificity of testing.[facility] code 737037 Lyme Disease Serology withReflex to aid in the diagnosis of Lyme Disease. Performed By: #### L 7000.5800, L509.3001 ####[facility] [address] [place], [address] P18 Ab Absent Normal . [facility] Comment on above: Performed By: #### L 0.5800, L509.3001 ####[facility] [address] [place], [place], [phone] P23 Ab Absent Normal . [facility] Comment on above: Performed By: #### L 7000.5800, L509.3001 ####[facility] [address] [place], [address] P28 Ab Absent Normal . [facility] Comment on above: Performed By: #### L 0.5800, L509.3001 ####[facility] [address] [place], [address] P30 Ab Absent Normal . [facility] Comment on above: Performed By: #### L 7000.5800, L509.3001 ####[facility] [address] [place], [address] P39 Ab Absent Normal . [facility] Comment on above: Performed By: #### L 0.5800, L509.3001 ####[facility] [address] [place], [address] P41 Ab Present Normal . [facility] Comment on above: Performed By: #### L 0.5800, L509.3001 ####[facility] [address] [place], [address] P41 Ab Absent Normal . [facility] Comment on above: Performed By: #### L 0.5800, L509.3001 ####[facility] [address] [place], [address] P45 Ab Absent Normal . [facility] Comment on above: Performed By: #### L 0.5800, L509.3001 ####[facility] [address] [place], [address] P58 Ab Absent Normal . [facility] Comment on above: Performed By: #### L 6999.5800, L509.3001 ####[facility] [address] [place], [address] P66 Ab Absent Normal . [facility] Comment on above: Performed By: #### L 6999.5800, L509.3001 ####[facility] [address] [place], [address] P93 Ab Absent Normal . [facility] Comment on above: Performed By: #### L 7000.5800, L509.3001 ####[facility] [address] [place], [address] Gram Stainon 10-03-2024 GS Gram Stain No organisms seen No Epithelial cells Normal [facility] Comment on above: Performed By: #### M 100.4001, M100.2000, M100.3000, L8200.1075 ####[facility] [address] [place], [address] L509.3001on 10-03-2024 Testosterone [Mass/Vol] 52.70 ng/dL Low 300-720 [facility] Comment on above: Order Comment: AZEEM WESLEY ONLABCORP SAMPLE BEFORE SENDING OUT-SWRIGHT Performed By: #### L 7000.5800, L509.3001 ####[facility] [address] [place], [address] Wound Cultureon 10-03-2024 WC No growth aerobically. Normal [facility] Comment on above: Performed By: #### M 100.4001, M100.1999, M100.3000, L8200.1075 ####[facility] [address] [place], [address] Anaerobic cultureOrdered By: Fredis Moon on 10-02-2024 Bacteria identified Anaer cx Nom (Unsp spec) No growth in 5 days. [facility] Cardiology Visit Reporton Cardiology Visit Report Normal [facility] Gram stainOrdered By: Fredis wheeler on 10-02-2024 Microscopic observation Gram stain Nom (Unsp spec) [facility] Laboratory - Chemistry and C hemistry - challengeOrdered By: Fredis Moon on 10-02-2024 Testosterone [Mass/Vol] 52.70 ng/dL Low 300-720 [facility] MRSA Wound DNA by PCRon 09-22 MRSA DNA ASSAY Negative Normal Negative [facility] Comment on above: Order Comment: L GRE AT TOE Performed By: #### M 100.4001, M1.1999, M100.3000, L8200.1075 ####[facility] [address] [place], [address] SA DNA ASSAY Negative Normal Negative [facility] Comment on above: Order Comment: L GRE AT TOE Performed By: #### M 100.4001, M100.1999, M100.3000, L8200.1075 ####[facility] [address] [place], [address] No Panel InformationOrdered By: Abel Raymond on 10-02-2024 [facility] Cardiac Rehab [address] [place] [address] CR - Individual Treatment Plan MR#: [id number] Acct: [id number] Name: Joaquin THRASHER Rep #:[id number] : 1940 84 From: Abel Swanson BS, RVT PCP: Dr. 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 Mechanic Exercise - 60-day Assessment Physician Prescribed Exercise Modalities: Treadmill, SciFit Stepper and SciFit Lateral Halfway House Exercise - 90-day Assessment Visit Date of Eval: 09/29/24 Session #:: 33 Physician Prescribed Exercise Modalities: Treadmill, SciFit Stepper and SciFit Lateral Halfway House Frequency: 3x/week for 12 weeks [36 sessions] [...] Modalities: Treadmill, SciFit Stepper and SciFit Lateral Bowling Alley Mechanic Nutrition - 30-Day Assessment Weight Mgt (Other Care) Height: 5 ft 6 in Weight:: 208 lb BMI: 33.5 Nutrition - 60-Day Assessment Weight Mgt (Other Care) Height: 5 ft 6 in Weight:: 208 lb BMI: 33.5 Core - 30-Day Assessment Hypertension [place] [employer] Hypertension Guidelines Reassessment Notes & Comments:: Pt's BP's are within AHA normal limits on most days. Will encourage low sodium diet and weight loss. C (more content not included)... [facility] No Panel InformationOrdered By: Fredis Moon on 10-02-2024 Lyme Disease IgG Ab 30 kDa Band Absent . [facility] Lyme Disease IgG Ab 93 kDa Band Absent . [facility] Lyme Disease IgG West Blot Interp Negative Negative [facility] Lyme Disease IgM Ab (Western Blot) Negative Negative [facility] Comment on above: Please Note: Lyme im munoblot alone is not recommended forthe diagnosis of Lyme disease. Current guidelines recommendthe use of a two-tiered approach to Lyme serology testingto improve the sensitivity and specificity of testing.[facility] offers test code 310636 Lyme Disease Serology withReflex to aid in the diagnosis of Lyme Disease. Lyme Disease Western Blot Comments Comment . [facility] Comment on above: Per CDC criteria, th [...] 30 or more days of symptoms.Performed at: [address] [id number] Director: Lucas Sorto MD, Phone: [phone] Staphylococcus aureus DNA de tection by probe and target amplification methodOrdered By: Fredis Moon on 10-02-2024 S. aureus DNA BRIAN+probe Ql (Unsp spec) Negative Negative [facility] Microalb:Creat Ratio,Random URon 09-12-2024 Creatinine [Mass/Vol] 72.60 mg/dL Normal 39.00- 259.0 0 [facility] Comment on above: Performed By: #### L 502.0250 ####[facility] [address] [place], [place], [address] MALB:CREAT 22.0 mg/g CRE Normal <30 mg/g CRE [facility] Comment on above: Performed By: #### L 502.0250 ####[facility] [address] [place], [place], [address] MICROALBUMIN,UR 16.0 mg/L Normal <20 mg/L [facility] Comment on above: Performed By: #### L 502.0250 ####[facility] [address] [place], [place], [id number] Random urine creatinine mt urement (mass/volume)Ordered By: Fredis Moon on 09-12-2024 Creatinine Unsp time (U) [Mass/Vol] 72.60 mg/dL 39.00-259.0 0 [facility] Urine albumin measurement wi detection limit of 20 mg/L or less (mass/volume)Ordered By: Fredis Moon on 09-12-2024 Albumin DL <= 20 mg/L (U) [Mass/Vol] 16.0 mg/L <20 mg/L [facility] Absolute lymphocyte countOrd ered By: Tiara Alston on 09-08-2024 Lymphocytes Auto (Unsp spec) [#/Vol] 0.98 10*3/uL 0.83-4.51 [facility] Absolute neutrophil countOrd ered By: Tiara Alston on 09-08-2024 Neutrophils (Bld) [#/Vol] 3.6 10*3/uL 2.0-7.7 [facility] Anion gap in Serum or Plasma Ordered By: Tiara Alston on 09-08-2024 Anion gap [Moles/Vol] 12 mmol/L 5-[address] [facility] Automated lymphocyte count a s percentage of total leukocytesOrdered By: Tiara Alston on 09-08-2024 Lymphocytes/100 WBC Auto (Unsp spec) 17.6 % Low 19-41 [facility] BUN/creatinine ratioOrdered By: Tiara Alston on 09-08-2024 Urea nitrogen/Creatinine [Mass ratio] 24.2 mg/mg High 10-20 [facility] Basic Metabolic Profile (BMP )on 09-08-2024 BUN/CRE 24.2 RATIO High 10-20 [facility] Comment on above: Performed By: #### L 500.2500, L100.0100 ####[facility] [address] [place], [address] Calcium [Mass/Vol] 9.6 mg/dL Normal 7.6-11.0 [facility] Comment on above: Performed By: #### L 500.2500, L100.0100 ####[facility] [address] [place], [address] Chloride [Moles/Vol] 103 mmol/L Normal 98-108 [facility] Comment on above: Performed By: #### L 500.2500, L100.0100 ####[facility] [address] [place], [address] CO2 [Moles/Vol] 26.3 mmol/L Normal 21.0-32.0 [facility] Comment on above: Performed By: #### L 500.2500, L100.0100 ####[facility] [address] [place], [address] Creatinine [Mass/Vol] 1.00 mg/dL Normal 0.70-1.[address] [facility] Comment on above: Performed By: #### L 500.2500, L100.0100 ####[facility] [address] [place], [address] ECRCL 61.00 ml/min Normal 50-250 [facility] Comment on above: Performed By: #### L 500.2500, L100.0100 ####[facility] [address] [place], [address] GAP 12 Normal 5-15 [facility] Comment on above: Performed By: #### L 500.2500, L100.0100 ####[facility] [address] [place], [address] GFR/1.73 sq M.predicted among non-blacks MDRD (S/P/Bld) [Vol rate/Area] 75 mL/min/{1.73_m2} Normal >60 [facility] Comment on above: Result Comment: mL/m in/1.73m2 CKD-EPI Creatinine Equation (2020) Performed By: #### L 500.2500, L100.0100 ####[facility] [address] [place], [address] Glucose [Mass/Vol] 109 mg/dL High 70-99 [facility] Comment on above: Performed By: #### L 500.2500, L100.0100 ####[facility] [address] [place], [address] Potassium [Moles/Vol] 4.3 mmol/L Normal 3.3-5.[address] [facility] Comment on above: Performed By: #### L 500.2500, L100.0100 ####[facility] [address] [place], [address] Sodium [Moles/Vol] 141 mmol/L Normal 133-145 [facility] Comment on above: Performed By: #### L 500.2500, L100.0100 ####[facility] [address] [place], [address] Urea nitrogen [Mass/Vol] 24 mg/dL High 4-19 [facility] Comment on above: Performed By: #### L 500.2500, L100.0100 ####[facility] [address] [place], [address] Basophil percentageOrdered B y: Tiara Alston on 09-08-2024 Basophils/100 WBC (Bld) 1.1 % High 0-1 [facility] Bedside Glucoseon 09-08-2024 FINGERSTICK GLU 142 mg/dL High 74-106 [facility] Comment on above: Result Comment: NIKI ROMERO OF PATIENT CARE PER NURSING PROTOCOL Performed By: #### L 501.080 ####[facility] [address] [place], [address] CBC W/Diff, Automatedon 08-22 Absolute Lymph 0.98 X10 3/uL Normal 0.83-4.51 [facility] Comment on above: Performed By: #### L 500.2500, L100.0100 ####[facility] [address] [place], [address] Absolute Neut 3.6 X10 3/uL Normal 2.0-7.7 [facility] Comment on above: Performed By: #### L 500.2500, L100.0100 ####[facility] [address] [place], [address] Basophils/100 WBC (Bld) 1.1 % High 0-1 [facility] Comment on above: Performed By: #### L 500.2500, L100.0100 ####[facility] [address] [place], [address] Eosinophils/100 WBC (Bld) 1.8 % Normal 0-5 [facility] Comment on above: Performed By: #### L 500.2500, L100.0100 ####[facility] [address] [place], [address] Erythrocyte distribution width (RBC) [Ratio] 14.9 % High 11.6-14.6 [facility] Comment on above: Performed By: #### L 500.2500, L100.0100 ####[facility] [address] [place], [address] Hematocrit (Bld) [Volume fraction] 43.7 % Normal 40-54 [facility] Comment on above: Performed By: #### L 500.2500, L100.0100 ####[facility] [address] [place], [address] Hemoglobin (Bld) [Mass/Vol] 14.1 g/dL Normal 13.0-16.5 [facility] Comment on above: Performed By: #### L 500.2500, L100.0100 ####[facility] [address] [place], [address] IG% 0.700 Normal 0.0-0.9 [facility] Comment on above: Result Comment: IG% - Immature Granulocytes (promyelocytes, myelocytes andmetamyelocytes) > 1% indicates that a LEFT SHIFT is Present. Performed By: #### L 500.2500, L100.0100 ####[facility] [address] [place], [address] Lymphocytes/100 WBC (Bld) 17.6 % Low 19-41 [facility] Comment on above: Performed By: #### L 500.2500, L100.0100 ####[facility] [address] [place], [address] MCH (RBC) [Entitic mass] 26.8 pg Low 27.0-32.0 [facility] Comment on above: Performed By: #### L 500.2500, L100.0100 ####[facility] [address] [place], [address] MCHC (RBC) [Mass/Vol] 32.3 g/dL Normal 32-[address] [facility] Comment on above: Performed By: #### L 500.2500, L100.0100 ####[facility] [address] [place], [address] MCV (RBC) [Entitic vol] 83.1 fL Normal 80-94 [facility] Comment on above: Performed By: #### L 500.2500, L100.0100 ####[facility] [address] [place], [address] Monocytes/100 WBC (Bld) 13.8 % High 0-10 [facility] Comment on above: Performed By: #### L 500.2500, L100.0100 ####[facility] [address] [place], [address] Neutrophils/100 WBC (Bld) 65.0 % Normal 47-70 [facility] Comment on above: Performed By: #### L 500.2500, L100.0100 ####[facility] [address] [place], [address] Nucleated RBC (Bld) [#/Vol] 0 10*3/uL Normal 0-5 [facility] Comment on above: Performed By: #### L 500.2500, L100.0100 ####[facility] [address] [place], [address] Platelet mean volume (Bld) [Entitic vol] 9.2 fL Normal 6.2-12.0 [facility] Comment on above: Performed By: #### L 500.2500, L100.0100 ####[facility] [address] [place], [address] Platelets (Bld) [#/Vol] 189 10*3/uL Normal 150-450 [facility] Comment on above: Performed By: #### L 500.2500, L100.0100 ####[facility] [address] [place], [address] RBC (Bld) [#/Vol] 5.26 10*6/uL Normal 4.6-6.2 [facility] Comment on above: Performed By: #### L 500.2500, L100.0100 ####[facility] [address] [place], [address] RDW SD 44.7 fl High 35.1-43.9 [facility] Comment on above: Performed By: #### L 500.2500, L100.0100 ####[facility] [address] [place], [address] WBC (Bld) [#/Vol] 5.6 10*3/uL Normal 4.4-11.0 [facility] Comment on above: Performed By: #### L 500.2500, L100.0100 ####[facility] [address] [place], [address] Carbon dioxide, total [Moles /volume] in Central venous bloodOrdered By: Tiara Alston on 09-08-2024 CO2 [Moles/Vol] 26.3 mmol/L 21.0-32.0 [facility] Chest PA and Lateralon 09-08 Chest PA and Lateral Normal [facility] Chloride assayOrdered By: Jaun Alston on 09-08-2024 Chloride [Moles/Vol] 103 mmol/L 98-108 [facility] Emergency Department Summary on 09-08-2024 Emergency Department Summary Normal [facility] Eosinophil percentageOrdered By: Tiara Alston on 09-08-2024 Eosinophils/100 WBC (Bld) 1.8 % 0-5 [facility] Erythrocyte distribution wid th ratioOrdered By: Tiara Alston on 09-08-2024 Erythrocyte distribution width (RBC) [Ratio] 14.9 % High 11.6-14.6 [facility] Erythrocyte distribution wid th standard deviationOrdered By: Tiara Alston on 09-08-2024 Erythrocyte distribution width (RBC) [Ratio] 44.7 fl High 35.1-43.9 [facility] Glomerular filtration rate ( GFR) estimation/1.73 sq m using serum, plasma, or whole bOrdered By: Tiara Alston on 09-08-2024 GFR/1.73 sq M.predicted among non-blacks MDRD (S/P/Bld) [Vol rate/Area] 75 mL/min/{1.73_m2} >60 [facility] Comment on above: mL/min/1.73m2 CKD-EP I Creatinine Equation (2020) [facility]dered By: Tiara Alston on 09-08-2024 Glucose [Mass/Vol] 142 mg/dL High 74-106 [facility] Comment on above: MANAGEMENT OF PATIEN T CARE PER NURSING PROTOCOL Hematocrit Auto (Bld) [Volum e fraction]Ordered By: Tiara Alston on 09-08-2024 Hematocrit (Bld) [Volume fraction] 43.7 % 40-54 [facility] Hemoglobin measurementOrdere d By: Tiara Alston on 09-08-2024 Hemoglobin (Bld) [Mass/Vol] 14.1 g/dL 13.0-16.5 [facility] Immature granulocytes/100 WB C Auto (Bld)Ordered By: Tiara Alston on 09-08-2024 Immature granulocytes/100 WBC (Bld) 0.700 % 0.0-0.9 [facility] Comment on above: IG% - Immature Granu locytes (promyelocytes, myelocytes and metamyelocytes) > 1% indicates that a LEFT SHIFT is Present. L499.0042on 09-08-2024 Trop T High Sen < 6 Normal <=22 [facility] Comment on above: Performed By: #### L 499.0042 ####[facility] [address] [place], [address] L499.0043on 09-08-2024 Trop T High Sen Normal <=22 [facility] Comment on above: Result Comment: Canc elled via OM: Order cancelled - Patient discharged Performed By: #### L 499.0043 ####[facility] [address] [place], [address] L501.4021on 09-08-2024 Trop T High Sen 6 ng/L Normal <=22 [facility] Comment on above: Performed By: #### L 501.4021 ####[facility] [address] [place], [address] MCV (mean corpuscular volume ) determinationOrdered By: Tiara Alston on 09-08-2024 MCV (RBC) [Entitic vol] 83.1 fL 80-94 [facility] Mean corpuscular hemoglobin (MCH) determinationOrdered By: Tiara Alston on 09-08-2024 MCH (RBC) [Entitic mass] 26.8 pg Low 27.0-32.0 [facility] Mean corpuscular hemoglobin concentration (MCHC) determinationOrdered By: Tiara Alston on 09-08-2024 MCHC (RBC) [Mass/Vol] 32.3 g/dL 32-[address] [facility] Mean platelet volume determi nationOrdered By: Tiara Alston on 09-08-2024 Platelet mean volume (Bld) [Entitic vol] 9.2 fL 6.2-12.0 [facility] Monocyte percentageOrdered B y: Tiara Alston on 09-08-2024 Monocytes/100 WBC (Bld) 13.8 % High 0-10 [facility] Neutrophil percentageOrdered By: Tiara Alston on 09-08-2024 Neutrophils/100 WBC (Bld) 65.0 % 47-70 [facility] Nucleated red blood cell per centageOrdered By: Tiara Alston on 09-08-2024 Nucleated RBC/100 WBC (Bld) [Ratio] 0 % 0-5 [facility] Platelet countOrdered By: Jaun Alston on 09-08-2024 Platelets (Bld) [#/Vol] 189 10*3/uL 150-450 [facility] Potassium measurement (mass/ volume)Ordered By: Tiara Alston on 09-08-2024 Potassium (Unsp spec) [Mass/Vol] 4.3 mmol/L 3.3-5.1 [facility] RBC Auto (Bld) [#/Vol]Ordere d By: Tiara Alston on 09-08-2024 RBC (Bld) [#/Vol] 5.26 10*6/uL 4.6-6.2 [facility] Serum creatinine measurement (mass/volume)Ordered By: Tiara Alston on 09-08-2024 Creatinine [Mass/Vol] 1.00 mg/dL 0.70-1.[address] [facility] Serum glucose measurement (m ass/volume)Ordered By: Tiara Alston on 09-08-2024 Glucose [Mass/Vol] 109 mg/dL High 70-99 [facility] Serum or plasma calcium mt urement (mass/volume)Ordered By: Tiara Alston on 09-08-2024 Calcium [Mass/Vol] 9.6 mg/dL 7.6-11.0 [facility] Serum or plasma urea nitroge n measurement (mass/volume)Ordered By: Tiara Alston on 09-08-2024 Urea nitrogen [Mass/Vol] 24 mg/dL High 4-19 [facility] Sodium levelOrdered By: Velia Alston on 09-08-2024 Sodium [Moles/Vol] 141 mmol/L 133-145 [facility] Troponin T.cardiac [Mass/vol ume] in Serum or Plasma by High sensitivity methodOrdered By: Tiara Alston on 09-08-2024 Troponin T.cardiac High sensitivity method [Mass/Vol] < 6 ng/L <22 [facility] Troponin T.cardiac High sensitivity method [Mass/Vol] 6 ng/L <22 [facility] White blood cell (WBC) count Ordered By: Tiara Alston on 09-08-2024 WBC (Bld) [#/Vol] 5.6 10*3/uL 4.4-11.0 [facility] Absolute lymphocyte countOrd ered By: Fredis Moon on 09-07-2024 Lymphocytes Auto (Unsp spec) [#/Vol] 1.28 10*3/uL 0.83-4.51 [facility] Absolute neutrophil countOrd ered By: Fredis Moon on 09-07-2024 Neutrophils (Bld) [#/Vol] 4.3 10*3/uL 2.0-7.7 [facility] Anion gap in Serum or Plasma Ordered By: Fredis Moon on 09-07-2024 Anion gap [Moles/Vol] 14 mmol/L 5-[address] [facility] Automated lymphocyte count a s percentage of total leukocytesOrdered By: Fredis Moon on 09-07-2024 Lymphocytes/100 WBC Auto (Unsp spec) 19.0 % -41 [facility] BUN/creatinine ratioOrdered By: Fredis Moon on 09-07-2024 Urea nitrogen/Creatinine [Mass ratio] 25.8 mg/mg High 10-20 [facility] Basophil percentageOrdered B y: Fredis Moon on 09-07-2024 Basophils/100 WBC (Bld) 0.7 % 0-1 [facility] Bilirubin, totalOrdered By: Fredis Moon on 09-07-2024 Bilirubin [Mass/Vol] 0.27 mg/dL 0.00-1.30 [facility] CBC W/Diff, Automatedon 08-22 Absolute Lymph 1.28 X10 3/uL Normal 0.83-4.51 [facility] Comment on above: Performed By: #### L 506.1001, L501.9985, L100.0100, L500.4050, L500.4100, L501.9520 ####[facility] [address] [place], [address] Absolute Neut 4.3 X10 3/uL Normal 2.0-7.7 [facility] Comment on above: Performed By: #### L 506.1001, L501.9985, L100.0100, L500.4050, L500.4100, L501.9520 ####[facility] [address] [place], [address] Basophils/100 WBC (Bld) 0.7 % Normal 0-1 [facility] Comment on above: Performed By: #### L 506.1001, L501.9985, L100.0100, L500.4050, L500.4100, L501.9520 ####[facility] [address] [place], [address] Eosinophils/100 WBC (Bld) 1.9 % Normal 0-5 [facility] Comment on above: Performed By: #### L 506.1001, L501.9985, L100.0100, L500.4050, L500.4100, L501.9520 ####[facility] [address] [place], [address] Erythrocyte distribution width (RBC) [Ratio] 14.8 % High 11.6-14.6 [facility] Comment on above: Performed By: #### L 506.1001, L501.9985, L100.0100, L500.4050, L500.4100, L501.9520 ####[facility] [address] [place], [address] Hematocrit (Bld) [Volume fraction] 41.1 % Normal 40-54 [facility] Comment on above: Performed By: #### L 506.1001, L501.9985, L100.0100, L500.4050, L500.4100, L501.9520 ####[facility] [address] [place], [address] Hemoglobin (Bld) [Mass/Vol] 13.4 g/dL Normal 13.0-16.5 [facility] Comment on above: Performed By: #### L 506.1001, L501.9985, L100.0100, L500.4050, L500.4100, L501.9520 ####[facility] [address] [place], [address] IG% 0.600 Normal 0.0-0.9 [facility] Comment on above: Result Comment: IG% - Immature Granulocytes (promyelocytes, myelocytes andmetamyelocytes) > 1% indicates that a LEFT SHIFT is Present. Performed By: #### L 506.1001, L501.9985, L100.0100, L500.4050, L500.4100, L501.9520 ####[facility] [address] [place], [address] Lymphocytes/100 WBC (Bld) 19.0 % Normal 19-41 [facility] Comment on above: Performed By: #### L 506.1001, L501.9985, L100.0100, L500.4050, L500.4100, L501.9520 ####[facility] [address] [place], [address] MCH (RBC) [Entitic mass] 27.1 pg Normal 27.0-32.0 [facility] Comment on above: Performed By: #### L 506.1001, L501.9985, L100.0100, L500.4050, L500.4100, L501.9520 ####[facility] [address] [place], [address] MCHC (RBC) [Mass/Vol] 32.6 g/dL Normal 32-[address] [facility] Comment on above: Performed By: #### L 506.1001, L501.9985, L100.0100, L500.4050, L500.4100, L501.9520 ####[facility] [address] [place], [address] MCV (RBC) [Entitic vol] 83.0 fL Normal 80-94 [facility] Comment on above: Performed By: #### L 506.1001, L501.9985, L100.0100, L500.4050, L500.4100, L501.9520 ####[facility] [address] [place], [address] Monocytes/100 WBC (Bld) 14.4 % High 0-10 [facility] Comment on above: Performed By: #### L 506.1001, L501.9985, L100.0100, L500.4050, L500.4100, L501.9520 ####[facility] [address] [place], [address] Neutrophils/100 WBC (Bld) 63.4 % Normal 47-70 [facility] Comment on above: Performed By: #### L 506.1001, L501.9985, L100.0100, L500.4050, L500.4100, L501.9520 ####[facility] [address] [place], [address] Nucleated RBC (Bld) [#/Vol] 0 10*3/uL Normal 0-5 [facility] Comment on above: Performed By: #### L 506.1001, L501.9985, L100.0100, L500.4050, L500.4100, L501.9520 ####[facility] [address] [place], [address] Platelet mean volume (Bld) [Entitic vol] 9.2 fL Normal 6.2-12.0 [facility] Comment on above: Performed By: #### L 506.1001, L501.9985, L100.0100, L500.4050, L500.4100, L501.9520 ####[facility] [address] [place], [address] Platelets (Bld) [#/Vol] 190 10*3/uL Normal 150-450 [facility] Comment on above: Performed By: #### L 506.1001, L501.9985, L100.0100, L500.4050, L500.4100, L501.9520 ####[facility] [address] [place], [address] RBC (Bld) [#/Vol] 4.95 10*6/uL Normal 4.6-6.2 [facility] Comment on above: Performed By: #### L 506.1001, L501.9985, L100.0100, L500.4050, L500.4100, L501.9520 ####[facility] [address] [place], [address] RDW SD 44.4 fl High 35.1-43.9 [facility] Comment on above: Performed By: #### L 506.1001, L501.9985, L100.0100, L500.4050, L500.4100, L501.9520 ####[facility] [address] [place], [address] WBC (Bld) [#/Vol] 6.8 10*3/uL Normal 4.4-11.0 [facility] Comment on above: Performed By: #### L 506.1001, L501.9985, L100.0100, L500.4050, L500.4100, L501.9520 ####[facility] [address] [place], [place], [address] Calculated very low density lipoprotein (VLDL) cholesterol measurementOrdered By: Fredis Moon on 09-07-2024 Calculated very low density lipoprotein (VLDL) cholesterol measurement 36 mg/dL 5-40 [facility] Carbon dioxide, total [Moles /volume] in Central venous bloodOrdered By: Fredis Moon on 09-07-2024 CO2 [Moles/Vol] 23.8 mmol/L 21.0-32.0 [facility] Chloride assayOrdered By: Mir Moon on 09-07-2024 Chloride [Moles/Vol] 104 mmol/L 98-108 [facility] Comprehensive Metabolic Prof ilon 09-07-2024 Albumin [Mass/Vol] 4.0 g/dL Normal 3.4-4.8 [facility] Comment on above: Performed By: #### L 506.1001, L501.9985, L100.0100, L500.4050, L500.4100, L501.9520 ####[facility] [address] [place], [address] Albumin/Globulin [Mass ratio] 1.5 {ratio} Normal 0.9-2.4 [facility] Comment on above: Performed By: #### L 506.1001, L501.9985, L100.0100, L500.4050, L500.4100, L501.9520 ####[facility] [address] [place], [address] ALK PHOS 93 U/L Normal 40-129 [facility] Comment on above: Performed By: #### L 506.1001, L501.9985, L100.0100, L500.4050, L500.4100, L501.9520 ####[facility] [address] [place], [address] ALT [Catalytic activity/Vol] U/L Normal <=46 [facility] Comment on above: Performed By: #### L 506.1001, L501.9985, L100.0100, L500.4050, L500.4100, L501.9520 ####[facility] [address] [place], [address] AST [Catalytic activity/Vol] 19 U/L Normal <=37 [facility] Comment on above: Result Comment: Hemo lysis present, Results??could be affected.?? Performed By: #### L 506.1001, L501.9985, L100.0100, L500.4050, L500.4100, L501.9520 ####[facility] [address] [place], [address] Bilirubin [Mass/Vol] 0.27 mg/dL Normal 0.00-1.30 [facility] Comment on above: Performed By: #### L 506.1001, L501.9985, L100.0100, L500.4050, L500.4100, L501.9520 ####[facility] [address] [place], [address] BUN/CRE 25.8 RATIO High 10-20 [facility] Comment on above: Performed By: #### L 506.1001, L501.9985, L100.0100, L500.4050, L500.4100, L501.9520 ####[facility] [address] [place], [address] Calcium [Mass/Vol] 9.3 mg/dL Normal 7.6-11.0 [facility] Comment on above: Performed By: #### L 506.1001, L501.9985, L100.0100, L500.4050, L500.4100, L501.9520 ####[facility] [address] [place], [address] Chloride [Moles/Vol] 104 mmol/L Normal 98-108 [facility] Comment on above: Performed By: #### L 506.1001, L501.9985, L100.0100, L500.4050, L500.4100, L501.9520 ####[facility] [address] [place], [address] CO2 [Moles/Vol] 23.8 mmol/L Normal 21.0-32.0 [facility] Comment on above: Performed By: #### L 506.1001, L501.9985, L100.0100, L500.4050, L500.4100, L501.9520 ####[facility] [address] [place], [address] Creatinine [Mass/Vol] 0.97 mg/dL Normal 0.70-1.[address] [facility] Comment on above: Performed By: #### L 506.1001, L501.9985, L100.0100, L500.4050, L500.4100, L501.9520 ####[facility] [address] [place], [address] GAP 14 Normal 5-15 [facility] Comment on above: Performed By: #### L 506.1001, L501.9985, L100.0100, L500.4050, L500.4100, L501.9520 ####[facility] [address] [place], [address] GFR/1.73 sq M.predicted among non-blacks MDRD (S/P/Bld) [Vol rate/Area] 78 mL/min/{1.73_m2} Normal >60 [facility] Comment on above: Result Comment: mL/m in/1.73m2 CKD-EPI Creatinine Equation (2020) Performed By: #### L 506.1001, L501.9985, L100.0100, L500.4050, L500.4100, L501.9520 ####[facility] [address] [place], [address] Globulin (S) [Mass/Vol] 2.7 g/dL Normal 2.2-4.2 [facility] Comment on above: Performed By: #### L 506.1001, L501.9985, L100.0100, L500.4050, L500.4100, L501.9520 ####[facility] [address] [place], [address] Glucose [Mass/Vol] 107 mg/dL High 70-99 [facility] Comment on above: Performed By: #### L 506.1001, L501.9985, L100.0100, L500.4050, L500.4100, L501.9520 ####[facility] [address] [place], [address] Potassium [Moles/Vol] 4.6 mmol/L Normal 3.3-5.[address] [facility] Comment on above: Result Comment: Hemo lysis present, Results??could be affected.?? Performed By: #### L 506.1001, L501.9985, L100.0100, L500.4050, L500.4100, L501.9520 ####[facility] [address] [place], [address] Sodium [Moles/Vol] 141 mmol/L Normal 133-145 [facility] Comment on above: Performed By: #### L 506.1001, L501.9985, L100.0100, L500.4050, L500.4100, L501.9520 ####[facility] [address] [place], [address] T PROT 6.7 g/dL Normal 5.9-8.4 [facility] Comment on above: Performed By: #### L 506.1001, L501.9985, L100.0100, L500.4050, L500.4100, L501.9520 ####[facility] [address] [place], [address] Urea nitrogen [Mass/Vol] 25 mg/dL High 4-19 [facility] Comment on above: Performed By: #### L 506.1001, L501.9985, L100.0100, L500.4050, L500.4100, L501.9520 ####[facility] [address] [place], [address] Eosinophil percentageOrdered By: Fredis Red on 09-07-2024 Eosinophils/100 WBC (Bld) 1.9 % 0-5 [facility] Erythrocyte distribution wid th ratioOrdered By: Fredis Red on 09-07-2024 Erythrocyte distribution width (RBC) [Ratio] 14.8 % High 11.6-14.6 [facility] Erythrocyte distribution wid th standard deviationOrdered By: Fredis Red on 09-07-2024 Erythrocyte distribution width (RBC) [Ratio] 44.4 fl High 35.1-43.9 [facility] Glomerular filtration rate ( GFR) estimation/1.73 sq m using serum, plasma, or whole bOrdered By: Fredis Red on 09-07-2024 GFR/1.73 sq M.predicted among non-blacks MDRD (S/P/Bld) [Vol rate/Area] 78 mL/min/{1.73_m2} >60 [facility] Comment on above: mL/min/1.73m2 CKD-EP I Creatinine Equation (2020) Hematocrit Auto (Bld) [Volum e fraction]Ordered By: Fredis Moon on 09-07-2024 Hematocrit (Bld) [Volume fraction] 41.1 % 40-54 [facility] Hemoglobin A1con 09-07-2024 HbA1c (Bld) [Mass fraction] 7.1 % High <=5.6 [facility] Comment on above: Result Comment: Norm al < 5.7 % Prediabetic 5.7 - 6.4 % Diabetic >or= 6.5 % Please note range changes. Performed By: #### L 506.1001, L501.9985, L100.0100, L500.4050, L500.4100, L501.9520 ####[facility] [address] [place], [address] Hemoglobin A1c percentageOrd ered By: Fredis Moon on 09-07-2024 HbA1c (Bld) [Mass fraction] 7.1 % High <5.7 [facility] Comment on above: Normal < 5.7 % Predi abetic 5.7 - 6.4 % Diabetic >or= 6.5 % Please note range changes. Hemoglobin measurementOrdere d By: Fredis Moon on 09-07-2024 Hemoglobin (Bld) [Mass/Vol] 13.4 g/dL 13.0-16.5 [facility] Immature granulocytes/100 WB C Auto (Bld)Ordered By: Fredis Moon on 09-07-2024 Immature granulocytes/100 WBC (Bld) 0.600 % 0.0-0.9 [facility] Comment on above: IG% - Immature Granu locytes (promyelocytes, myelocytes and metamyelocytes) > 1% indicates that a LEFT SHIFT is Present. LDL calc ser/plasOrdered By: Fredis Moon on 09-07-2024 Cholesterol in LDL [Mass/Vol] 37 mg/dL [facility] Comment on above: Jlkapytnle=347-005 m g/dL & Higher Wldd=198 mg/dL or greater Laboratory - Chemistry and C hemistry - challengeOrdered By: Fredis Moon on 09-07-2024 AST [Catalytic activity/Vol] 19 U/L <38 [facility] Comment on above: Hemolysis present, R esults could be affected. Lipid Profileon 09-07-2024 CHOL:HDL 2.71 Normal [facility] Comment on above: Performed By: #### L 506.1001, L501.9985, L100.0100, L500.4050, L500.4100, L501.9520 ####[facility] [address] [place], [address] Cholesterol [Mass/Vol] 115 mg/dL Normal <=200 [facility] Comment on above: Result Comment: Chol esterol level, Desirable <200 mg/dLBorderline high cholesterol 200-239 mg/dLHigh cholesterol >=240 mg/dLRecommendations of the NCEP Adult Treatment Panel for thefollowing risk-cutoff thresholds for the [place] [facility]. Performed By: #### L 506.1001, L501.9985, L100.0100, L500.4050, L500.4100, L501.9520 ####[facility] [address] [place], [address] Cholesterol in HDL [Mass/Vol] 42 mg/dL Normal [facility] Comment on above: Result Comment: Rianna onal Cholesterol Education Program (NCEP) guidelines:<40 mg/dL: Low HDL-cholesterol (major risk factor for CHD)>= 60 mg/dL: High HDL-cholesterol (negative risk factor forCHD)HDL-cholesterol is affected by a number of factors, e.g.smoking, exercise, hormones, sex and age. Performed By: #### L 506.1001, L501.9985, L100.0100, L500.4050, L500.4100, L501.9520 ####[facility] [address] [place], [address] Cholesterol in LDL [Mass/Vol] 37 mg/dL Normal [facility] Comment on above: Result Comment: Bord qlscjm=095-516 mg/dL Higher Hxpe=890 mg/dL or greater Performed By: #### L 506.1001, L501.9985, L100.0100, L500.4050, L500.4100, L501.9520 ####[facility] [address] [place], [address] Cholesterol in VLDL [Mass/Vol] 36 mg/dL Normal 5-40 [facility] Comment on above: Performed By: #### L 506.1001, L501.9985, L100.0100, L500.4050, L500.4100, L501.9520 ####[facility] [address] [place], [address] Triglyceride [Mass/Vol] 179 mg/dL Normal [facility] Comment on above: Result Comment: The drugs N-Acetylcysteine and Metamizole may falselydepress this assay.Normal range: <150 mg/dLBorderline High: 150-199 mg/dLHigh: 200-499 mg/dLVery High: >500 mg/dL Performed By: #### L 506.1001, L501.9985, L100.0100, L500.4050, L500.4100, L501.9520 ####[facility] [address] [place], [address] MCV (mean corpuscular volume ) determinationOrdered By: Fredis Moon on 09-07-2024 MCV (RBC) [Entitic vol] 83.0 fL 80-94 [facility] Mean corpuscular hemoglobin (MCH) determinationOrdered By: Fredis Moon on 09-07-2024 MCH (RBC) [Entitic mass] 27.1 pg 27.0-32.0 [facility] Mean corpuscular hemoglobin concentration (MCHC) determinationOrdered By: Fredis Moon on 09-07-2024 MCHC (RBC) [Mass/Vol] 32.6 g/dL 32-[address] [facility] Mean platelet volume determi nationOrdered By: Fredis Moon on 09-07-2024 Platelet mean volume (Bld) [Entitic vol] 9.2 fL 6.2-12.0 [facility] Monocyte percentageOrdered B y: Fredis Moon on 09-07-2024 Monocytes/100 WBC (Bld) 14.4 % High 0-10 [facility] Neutrophil percentageOrdered By: Fredis Moon on 09-07-2024 Neutrophils/100 WBC (Bld) 63.4 % 47-70 [facility] Nucleated red blood cell per centageOrdered By: Fredis Moon on 09-07-2024 Nucleated RBC/100 WBC (Bld) [Ratio] 0 % 0-5 [facility] Platelet countOrdered By: Mir Moon on 09-07-2024 Platelets (Bld) [#/Vol] 190 10*3/uL 150-450 [facility] Potassium measurement (mass/ volume)Ordered By: Fredis Moon on 09-07-2024 Potassium (Unsp spec) [Mass/Vol] 4.6 mmol/L 3.3-5.1 [facility] Comment on above: Hemolysis present, R esults could be affected. RBC Auto (Bld) [#/Vol]Ordere d By: Fredis Moon on 09-07-2024 RBC (Bld) [#/Vol] 4.95 10*6/uL 4.6-6.2 [facility] Screening total cholesterol/ high density lipoprotein (HDL) cholesterol ratioOrdered By: Fredis Moon 09-07-2024 Cholesterol.total/Choles terol in HDL [Mass ratio] 2.71 {ratio} [facility] Serum creatinine measurement (mass/volume)Ordered By: Fredis Moon on 09-07-2024 Creatinine [Mass/Vol] 0.97 mg/dL 0.70-1.[address] [facility] Serum globulin measurementOr dered By: Fredis Moon 09-07-2024 Globulin (S) [Mass/Vol] 2.7 g/dL 2.2-4.2 [facility] Serum glucose measurement (m ass/volume)Ordered By: Fredis Moon on 09-07-2024 Glucose [Mass/Vol] 107 mg/dL High 70-99 [facility] Serum or plasma alanine hector otransferase (ALT) measurementOrdered By: Fredis Moon 09-07-2024 ALT [Catalytic activity/Vol] U/L <47 [facility] Serum or plasma albumin mt urement (mass/volume)Ordered By: Fredis Moon 09-07-2024 Albumin [Mass/Vol] 4.0 g/dL 3.4-4.8 [facility] Serum or plasma albumin/glob ulin mass ratioOrdered By: Fredis Perry09-07-2024 Albumin/Globulin [Mass ratio] 1.5 {ratio} 0.9-2.4 [facility] Serum or plasma alkaline kristyn sphatase measurementOrdered By: Fredis Red 09-07-2024 ALP [Catalytic activity/Vol] 93 U/L 40-129 [facility] Serum or plasma calcium mt urement (mass/volume)Ordered By: Fredis Moon 09-07-2024 Calcium [Mass/Vol] 9.3 mg/dL 7.6-11.0 [facility] Serum or plasma cholesterol in HDL measurement (mass/volume)Ordered By: Fredis Red 09-07-2024 Cholesterol in HDL [Mass/Vol] 42 mg/dL >40 [facility] Comment on above: National Cholesterol Education Program (NCEP) guidelines:<40 mg/dL: Low HDL-cholesterol (major risk factor for CHD)>= 60 mg/dL: High HDL-cholesterol (negative risk factor for CHD)HDL-cholesterol is affected by a number of factors, e.g. smoking, exercise, hormones, sex and age. Serum or plasma cholesterol measurement (mass/volume)Ordered By: Fredis Moon 09-07-2024 Cholesterol [Mass/Vol] 115 mg/dL <201 [facility] Comment on above: Cholesterol level, D esirable <200 mg/dLBorderline high cholesterol 200-239 mg/dLHigh cholesterol >=240 mg/dLRecommendations of the NCEP Adult Treatment Panel for the following risk-cutoff thresholds for the [place] population. Serum or plasma urea nitroge n measurement (mass/volume)Ordered By: Fredis Moon 09-07-2024 Urea nitrogen [Mass/Vol] 25 mg/dL High 4-19 [facility] Sodium levelOrdered By: Fredis Moon 09-07-2024 Sodium [Moles/Vol] 141 mmol/L 133-145 [facility] TSH DL <= 0.005 mIU/L QnOrde red By: Fredis Moon on 09-07-2024 TSH Qn 2.070 uIU/mL 0.300-4.200 [facility] Thyroid Stim Hormone (TSH)on 09-07-2024 TSH 2.070 uIU/mL Normal 0.300-4.200 [facility] Comment on above: Performed By: #### L 506.1001, L501.9985, L100.0100, L500.4050, L500.4100, L501.9520 ####[facility] [address] [place], [address] Total proteinOrdered By: Fredis Moon on 09-07-2024 Protein [Mass/Vol] 6.7 g/dL 5.9-8.4 [facility] Triglycerides measurementOrd ered By: Fredis Moon on 09-07-2024 Triglyceride [Mass/Vol] 179 mg/dL <199 [facility] Comment on above: The drugs N-Acetylcy steine and Metamizole may falsely depress this assay. Normal range: <150 mg/dLBorderline High: 150-199 mg/dLHigh: 200-499 mg/dLVery High: >500 mg/dL Vitamin D,25 Hydroxyon 09-07 Vitamin D 25-OH 39.6 ng/mL Normal 30-100 [facility] Comment on above: Result Comment: Katie min D StatusDeficiency: <20 ng/mL (50nmol/L)Insufficiency: 20-30 ng/mL (50-75 nmol/L)Sufficiency: 30-100 ng/mL (75-250 nmol/L)Toxicity: >100 ng/mL (>250 nmol/L) Performed By: #### L 506.1001, L501.9985, L100.0100, L500.4050, L500.4100, L501.9520 ####[facility] [address] [place], [place], [id number] White blood cell (WBC) count Ordered By: Fredis Moon on 09-07-2024 WBC (Bld) [#/Vol] 6.8 10*3/uL 4.4-11.0 [facility] No Panel InformationOrdered By: Abel Raymond on 09-04-2024 [facility] [address] [place] [address] CR - Individual Treatment Plan MR#: [id number] Acct: [id number] Name: Joaquin THRASHER Rep #:[id number] 2 : 1940 84 From: Abel Swanson BS, RVT PCP: Dr. Fredis Moon MD DOS: Exercise - Initial Assessment Physician Prescribed Exercise Modalities: Treadmill, SciFit Stepper and SciFit Lateral Halfway House Nutrition - Initial Assessment Weight Mgt (Other Care) Height: 5 ft 6 in Weight:: 207 lb BMI: 33.4 Core - Initial Assessment Hypertension Resting Blood Pressure:: 146/60 [place] [employer] Hypertension Guidelines Psychosocial - Initial [...] Modalities: Treadmill, SciFit Stepper and SciFit Lateral Bowling Alley Mechanic Exercise - 60-day Assessment Visit Date of Eval: 09/01/24 Session #:: 22 Physician Prescribed Exercise Modalities: Treadmill, SciFit Stepper and SciFit Lateral Halfway House Frequency: 3x/week for 12 weeks [36 sessions] [...] Modalities: Treadmill, SciFit Stepper and SciFit Lateral Halfway House Exercise - Final/Discharge Physician Prescribed Exercise Modalities: Treadmill, SciFit Stepper and SciFit Lateral Bowling Alley Mechanic Nutrition - 30-Day Assessment Weight Mgt (Other Care) Height: 5 ft 6 in Weight:: 207 lb BMI: 33.4 Nutrition - 60-Day Assessment Program Goals Nutrition Program Goals Patient has diagnosis of Hyperlipidemia (ICD E78)?: Yes Visit Date of Eval: 09/01/24 Session #:: 22 Cholesterol/Lipids (Other Core Measures) Determine presence & major risk factors that modif (more content not included)... [facility] No Panel InformationOrdered By: Abel Raymond on 08-06-2024 [facility] Card[facility]hab [address] [place] [address] CR - Individual Treatment Plan MR#: [id number] Acct: [id number] Name: Joaquin THRASHER Rep #:[id number] 1 : 1940 84 From: Abel Swanson BS, RVT PCP: Dr. Fredis Moon MD DOS: Exercise - Initial Assessment Visit Session #:: 12 Physician Prescribed Exercise Modalities: Treadmill, SciFit Stepper, SciFit Pro-II Ergometer and SciFit Lateral Halfway House Nutrition - Initial Assessment Weight Mgt (Other [...] Physician Prescribed Exercise Modalities: Treadmill, SciFit Stepper, [employer] Pro-II Ergometer and [employer] Lateral Halfway House Frequency: 3x/week for 12 weeks [36 sessions] [...] Stepper, SciFit Pro-II Ergometer and SciFit Lateral Halfway House Exercise - 90-day Assessment Physician Prescribed Exercise Modalities: Treadmill, SciFit Stepper, SciFit Pro-II Ergometer and SciFit Lateral Halfway House Exercise - Final/Discharge Physician Prescribed Exercise Modalities: Treadmill, SciFit Stepper, SciFit Pro-II Ergometer and SciFit Lateral Halfway House Nutrition - 30-Day Assessment Program Goals Nutrition Program Goals Patient has diagnosis of Hyperlipidemia (ICD E78)?: Yes Visit Date of Eval: 08/03/24 Session #:: 12 Cholesterol/Lipids (Other Core Measures) Determine presence & major risk factors that modify LDL goal: Hypertension or hypertensive medication, Low HDL cholesterol <40 mg/dL*, Family history of prematur (more content not included)... [facility] Progress Noteon 07-31-2024 Progress Note 07/31/24 1443 [...] than 3 How often do you attend scientologist or zoroastrian services? More than 4 Do you belong to any clubs or organizations such as scientologist groups, unions, fraternal or athletic groups, or [...] from your doctor or pharmacy? Never Normal [facility] Progress Noteon 07-24-2024 Progress Note 07/24/24 1421 BPCI Late Drop? Program late drop? No BPCI Outreach Assessment Selection Which outreach assessment are you completing? 60 Day BPCI - 60 Day Outreach Did patient answer phone call? No Do you have any concerns with your medication(s)? No Any complications with post discharge services? No (Patient has been going to Cardiac Rehab ([place]) for 3 weeks now) Any concerns with your DME equipment? No Any questions about your condition you are unsure about that I can help clarify? Yes (Discussed progress made and patient going to Cardiac Rehab. Discussed medications, medical bills- emailed patient HCAP application.) Normal [facility] Absolute lymphocyte countOrd ered By: Mi Hernandez on 07-06-2024 Lymphocytes Auto (Unsp spec) [#/Vol] 1.27 10*3/uL 0.83-4.51 [facility] Absolute neutrophil countOrd ered By: Mi Hernandez on 07-06-2024 Neutrophils (Bld) [#/Vol] 3.9 10*3/uL 2.0-7.7 [facility] Anion gap in Serum or Plasma Ordered By: Samson Elder on 07-06-2024 Anion gap [Moles/Vol] 11 mmol/L 07-[address] [facility] Automated lymphocyte count a s percentage of total leukocytesOrdered By: Mi Hernandez on 07-06-2024 Lymphocytes/100 WBC Auto (Unsp spec) 20.6 % - [facility] BUN/creatinine ratioOrdered By: Samson Elder on 07-06-2024 Urea nitrogen/Creatinine [Mass ratio] 25.8 mg/mg High 10- [facility] Basophil percentageOrdered B y: Mi Hernandez on 07-06-2024 Basophils/100 WBC (Bld) 1.0 % 0-1 [facility] Bilirubin, totalOrdered By: Samson Elder on 07-06-2024 Bilirubin [Mass/Vol] 0.32 mg/dL 0.00-1.30 [facility] CBC W/Diff, Automatedon 06-22 Absolute Lymph 1.27 X10 3/uL Normal 0.83-4.51 [facility] Comment on above: Performed By: #### L 100.0100 ####[facility] [address] [place], [address] Absolute Neut 3.9 X10 3/uL Normal 2.0-7.7 [facility] Comment on above: Performed By: #### L 100.0100 ####[facility] [address] [place], [address] Basophils/100 WBC (Bld) 1.0 % Normal 0-1 [facility] Comment on above: Performed By: #### L 100.0100 ####[facility] [address] [place], [address] Eosinophils/100 WBC (Bld) 1.8 % Normal 0-5 [facility] Comment on above: Performed By: #### L 100.0100 ####[facility] [address] [place], [address] Erythrocyte distribution width (RBC) [Ratio] 14.4 % Normal 11.6-14.6 [facility] Comment on above: Performed By: #### L 100.0100 ####[facility] [address] [place], [address] Hematocrit (Bld) [Volume fraction] 37.5 % Low 40-54 [facility] Comment on above: Performed By: #### L 100.0100 ####[facility] [address] [place], [address] Hemoglobin (Bld) [Mass/Vol] 12.0 g/dL Low 13.0-16.5 [facility] Comment on above: Performed By: #### L 100.0100 ####[facility] [address] [place], [address] IG% 0.600 Normal 0.0-0.9 [facility] Comment on above: Result Comment: IG% - Immature Granulocytes (promyelocytes, myelocytes andmetamyelocytes) > 1% indicates that a LEFT SHIFT is Present. Performed By: #### L 100.0100 ####[facility] [address] [place], [address] Lymphocytes/100 WBC (Bld) 20.6 % Normal 19-41 [facility] Comment on above: Performed By: #### L 100.0100 ####[facility] [address] [place], [address] MCH (RBC) [Entitic mass] 27.6 pg Normal 27.0-32.0 [facility] Comment on above: Performed By: #### L 100.0100 ####[facility] [address] [place], [address] MCHC (RBC) [Mass/Vol] 32.0 g/dL Normal 32-[address] [facility] Comment on above: Performed By: #### L 100.0100 ####[facility] [address] [place], [address] MCV (RBC) [Entitic vol] 86.4 fL Normal 80-94 [facility] Comment on above: Performed By: #### L 100.0100 ####[facility] [address] [place], [address] Monocytes/100 WBC (Bld) 13.3 % High 0-10 [facility] Comment on above: Performed By: #### L 100.0100 ####[facility] [address] [place], [address] Neutrophils/100 WBC (Bld) 62.7 % Normal 47-70 [facility] Comment on above: Performed By: #### L 100.0100 ####[facility] [address] [place], [address] Nucleated RBC (Bld) [#/Vol] 0 10*3/uL Normal 0-5 [facility] Comment on above: Performed By: #### L 100.0100 ####[facility] [address] [place], [address] Platelet mean volume (Bld) [Entitic vol] 9.5 fL Normal 6.2-12.0 [facility] Comment on above: Performed By: #### L 100.0100 ####[facility] [address] [place], [address] Platelets (Bld) [#/Vol] 192 10*3/uL Normal 150-450 [facility] Comment on above: Performed By: #### L 100.0100 ####[facility] [address] [place], [address] RBC (Bld) [#/Vol] 4.34 10*6/uL Low 4.6-6.2 [facility] Comment on above: Performed By: #### L 100.0100 ####[facility] [address] [place], [address] RDW SD 45.3 fl High 35.1-43.9 [facility] Comment on above: Performed By: #### L 100.0100 ####[facility] [address] [place], [address] WBC (Bld) [#/Vol] 6.2 10*3/uL Normal 4.4-11.0 [facility] Comment on above: Performed By: #### L 100.0100 ####[facility] [address] [place], [address] Calculated very low density lipoprotein (VLDL) cholesterol measurementOrdered By: Samosn Elder on 07-06-2024 Calculated very low density lipoprotein (VLDL) cholesterol measurement 21 mg/dL 5-40 [facility] Carbon dioxide, total [Moles /volume] in Central venous bloodOrdered By: Samson Elder on 07-06-2024 CO2 [Moles/Vol] 24.2 mmol/L 21.0-32.0 [place] [facility] Cardiology Visit Reporton Cardiology Visit Report Normal [facility] Chloride assayOrdered By: Mamadou Elder on 07-06-2024 Chloride [Moles/Vol] 106 mmol/L 98-108 [facility] Comprehensive Metabolic Prof ilon 07-06-2024 Albumin [Mass/Vol] 3.9 g/dL Normal 3.4-4.8 [facility] Comment on above: Performed By: #### L 500.4100, L500.4050 ####[facility] [address] [place], [address] Albumin/Globulin [Mass ratio] 1.4 {ratio} Normal 0.9-2.4 [facility] Comment on above: Performed By: #### L 500.4100, L500.4050 ####[facility] [address] [place], [address] ALK PHOS 117 U/L Normal 40-129 [facility] Comment on above: Performed By: #### L 500.4100, L500.4050 ####[facility] [address] [place], [address] ALT [Catalytic activity/Vol] U/L Normal <=46 [facility] Comment on above: Performed By: #### L 500.4100, L500.4050 ####[facility] [address] [place], [address] AST [Catalytic activity/Vol] 17 U/L Normal <=37 [facility] Comment on above: Performed By: #### L 500.4100, L500.4050 ####[facility] [address] [place], [address] Bilirubin [Mass/Vol] 0.32 mg/dL Normal 0.00-1.30 [facility] Comment on above: Performed By: #### L 500.4100, L500.4050 ####[facility] [address] [place], [address] BUN/CRE 25.8 RATIO High 10-20 [facility] Comment on above: Performed By: #### L 500.4100, L500.4050 ####[facility] [address] [place], [address] Calcium [Mass/Vol] 9.4 mg/dL Normal 7.6-11.0 [facility] Comment on above: Performed By: #### L 500.4100, L500.4050 ####[facility] [address] [place], [address] Chloride [Moles/Vol] 106 mmol/L Normal 98-108 [facility] Comment on above: Performed By: #### L 500.4100, L500.4050 ####[facility] [address] [place], [address] CO2 [Moles/Vol] 24.2 mmol/L Normal 21.0-32.0 [facility] Comment on above: Performed By: #### L 500.4100, L500.4050 ####[facility] [address] [place], [address] Creatinine [Mass/Vol] 0.98 mg/dL Normal 0.70-1.[address] [facility] Comment on above: Performed By: #### L 500.4100, L500.4050 ####[facility] [address] [place], [address] GAP 11 Normal 5-15 [facility] Comment on above: Performed By: #### L 500.4100, L500.4050 ####[facility] [address] [place], [address] GFR/1.73 sq M.predicted among non-blacks MDRD (S/P/Bld) [Vol rate/Area] 77 mL/min/{1.73_m2} Normal >60 [facility] Comment on above: Result Comment: mL/m in/1.73m2 CKD-EPI Creatinine Equation (2020) Performed By: #### L 500.4100, L500.4050 ####[facility] [address] [place], [address] Globulin (S) [Mass/Vol] 2.7 g/dL Normal 2.2-4.2 [facility] Comment on above: Performed By: #### L 500.4100, L500.4050 ####[facility] [address] [place], [address] Glucose [Mass/Vol] 173 mg/dL High 70-99 [facility] Comment on above: Performed By: #### L 500.4100, L500.4050 ####[facility] [address] [place], [address] Potassium [Moles/Vol] 4.3 mmol/L Normal 3.3-5.[address] [facility] Comment on above: Performed By: #### L 500.4100, L500.4050 ####[facility] [address] [place], [address] Sodium [Moles/Vol] 141 mmol/L Normal 133-145 [facility] Comment on above: Performed By: #### L 500.4100, L500.4050 ####[facility] [address] [place], [address] T PROT 6.6 g/dL Normal 5.9-8.4 [facility] Comment on above: Performed By: #### L 500.4100, L500.4050 ####[facility] [address] [place], [address] Urea nitrogen [Mass/Vol] 25 mg/dL High 4-19 [facility] Comment on above: Performed By: #### L 500.4100, L500.4050 ####[facility] [address] [place], [address] Eosinophil percentageOrdered By: Mi Hernandez on 07-06-2024 Eosinophils/100 WBC (Bld) 1.8 % 0-5 [facility] Erythrocyte distribution wid th ratioOrdered By: Mi Hernandez on 07-06-2024 Erythrocyte distribution width (RBC) [Ratio] 14.4 % 11.6-14.6 [facility] Erythrocyte distribution wid th standard deviationOrdered By: Mi Hernandez on 07-06-2024 Erythrocyte distribution width (RBC) [Ratio] 45.3 fl High 35.1-43.9 [facility] Glomerular filtration rate ( GFR) estimation/1.73 sq m using serum, plasma, or whole bOrdered By: Samson Elder on 07-06-2024 GFR/1.73 sq M.predicted among non-blacks MDRD (S/P/Bld) [Vol rate/Area] 77 mL/min/{1.73_m2} >60 [facility] Comment on above: mL/min/1.73m2 CKD-EP I Creatinine Equation (2020) Hematocrit Auto (Bld) [Volum e fraction]Ordered By: Mi Hernandez on 07-06-2024 Hematocrit (Bld) [Volume fraction] 37.5 % Low 40-54 [facility] Hemoglobin measurementOrdere d By: Mi Hernandez on 07-06-2024 Hemoglobin (Bld) [Mass/Vol] 12.0 g/dL Low 13.0-16.5 [facility] Immature granulocytes/100 WB C Auto (Bld)Ordered By: Mi Hernandez on 07-06-2024 Immature granulocytes/100 WBC (Bld) 0.600 % 0.0-0.9 [facility] Comment on above: IG% - Immature Granu locytes (promyelocytes, myelocytes and metamyelocytes) > 1% indicates that a LEFT SHIFT is Present. LDL calc ser/plasOrdered By: Samson Elder on 07-06-2024 Cholesterol in LDL [Mass/Vol] 46 mg/dL [facility] Comment on above: Ecixalfgse=627-845 m g/dL & Higher Uxus=788 mg/dL or greater Laboratory - Chemistry and C hemistry - challengeOrdered By: Samson Elder on 07-06-2024 AST [Catalytic activity/Vol] 17 U/L <38 [facility] Lipid Profileon 07-06-2024 CHOL:HDL 2.73 Normal [facility] Comment on above: Performed By: #### L 500.4100, L500.4050 ####[facility] [address] [place], [address] Cholesterol [Mass/Vol] 106 mg/dL Normal <=200 [facility] Comment on above: Result Comment: Chol esterol level, Desirable <200 mg/dLBorderline high cholesterol 200-239 mg/dLHigh cholesterol >=240 mg/dLRecommendations of the NCEP Adult Treatment Panel for thefollowing risk-cutoff thresholds for the [place] Americanpulation. Performed By: #### L 500.4100, L500.4050 ####[facility] [address] [place], [address] Cholesterol in HDL [Mass/Vol] 39 mg/dL Low [facility] Comment on above: Result Comment: Rianna onal Cholesterol Education Program (NCEP) guidelines:<40 mg/dL: Low HDL-cholesterol (major risk factor for CHD)>= 60 mg/dL: High HDL-cholesterol (negative risk factor forCHD)HDL-cholesterol is affected by a number of factors, e.g.smoking, exercise, hormones, sex and age. Performed By: #### L 500.4100, L500.4050 ####[facility] [address] [place], [address] Cholesterol in LDL [Mass/Vol] 46 mg/dL Normal [facility] Comment on above: Result Comment: Bord mkijvi=820-819 mg/dL Higher Pgkj=597 mg/dL or greater Performed By: #### L 500.4100, L500.4050 ####[facility] [address] [place], [address] Cholesterol in VLDL [Mass/Vol] 21 mg/dL Normal 5-40 [facility] Comment on above: Performed By: #### L 500.4100, L500.4050 ####[facility] [address] [place], [address] Triglyceride [Mass/Vol] 107 mg/dL Normal [facility] Comment on above: Result Comment: The drugs N-Acetylcysteine and Metamizole may falselydepress this assay.Normal range: <150 mg/dLBorderline High: 150-199 mg/dLHigh: 200-499 mg/dLVery High: >500 mg/dL Performed By: #### L 500.4100, L500.4050 ####[facility] [address] [place], [address] MCV (mean corpuscular volume ) determinationOrdered By: Mi Hernandez on 07-06-2024 MCV (RBC) [Entitic vol] 86.4 fL 80-94 [facility] Mean corpuscular hemoglobin (MCH) determinationOrdered By: Mi Hernandez on 07-06-2024 MCH (RBC) [Entitic mass] 27.6 pg 27.0-32.0 [facility] Mean corpuscular hemoglobin concentration (MCHC) determinationOrdered By: Mi Hernandez on 07-06-2024 MCHC (RBC) [Mass/Vol] 32.0 g/dL 32-[address] [facility] Mean platelet volume determi nationOrdered By: Mi Hernandez on 07-06-2024 Platelet mean volume (Bld) [Entitic vol] 9.5 fL 6.2-12.0 [facility] Monocyte percentageOrdered B y: Mi Hernandez on 07-06-2024 Monocytes/100 WBC (Bld) 13.3 % High 0-10 [facility] Neutrophil percentageOrdered By: Mi Hernandez on 07-06-2024 Neutrophils/100 WBC (Bld) 62.7 % 47-70 [facility] Nucleated red blood cell per centageOrdered By: Mi Hernandez on 07-06-2024 Nucleated RBC/100 WBC (Bld) [Ratio] 0 % 0-5 [facility] Platelet countOrdered By: Jersey Hernandez on 07-06-2024 Platelets (Bld) [#/Vol] 192 10*3/uL 150-450 [facility] Potassium measurement (mass/ volume)Ordered By: Samson Elder on 07-06-2024 Potassium (Unsp spec) [Mass/Vol] 4.3 mmol/L 3.3-5.1 [facility] RBC Auto (Bld) [#/Vol]Ordere d By: Mi Hernandez on 07-06-2024 RBC (Bld) [#/Vol] 4.34 10*6/uL Low 4.6-6.2 [facility] Screening total cholesterol/ high density lipoprotein (HDL) cholesterol ratioOrdered By: Samson Elder on 07-06-2024 Cholesterol.total/Choles terol in HDL [Mass ratio] 2.73 {ratio} [facility] Serum creatinine measurement (mass/volume)Ordered By: Samson Elder on 07-06-2024 Creatinine [Mass/Vol] 0.98 mg/dL 0.70-1.[address] [facility] Serum globulin measurementOr dered By: Samson Elder on 07-06-2024 Globulin (S) [Mass/Vol] 2.7 g/dL 2.2-4.2 [facility] Serum glucose measurement (m ass/volume)Ordered By: Samson Elder on 07-06-2024 Glucose [Mass/Vol] 173 mg/dL High 70-99 [facility] Serum or plasma alanine hector otransferase (ALT) measurementOrdered By: Samson Elder on 07-06-2024 ALT [Catalytic activity/Vol] U/L <47 [facility] Serum or plasma albumin mt urement (mass/volume)Ordered By: Samson Elder on 07-06-2024 Albumin [Mass/Vol] 3.9 g/dL 3.4-4.8 [facility] Serum or plasma albumin/glob ulin mass ratioOrdered By: Samson Elder on 07-06-2024 Albumin/Globulin [Mass ratio] 1.4 {ratio} 0.9-2.4 [facility] Serum or plasma alkaline kristyn sphatase measurementOrdered By: Samson Elder on 07-06-2024 ALP [Catalytic activity/Vol] 117 U/L 40-129 [facility] Serum or plasma calcium mt urement (mass/volume)Ordered By: Samson Elder on 07-06-2024 Calcium [Mass/Vol] 9.4 mg/dL 7.6-11.0 [facility] Serum or plasma cholesterol in HDL measurement (mass/volume)Ordered By: Samson Elder on 07-06-2024 Cholesterol in HDL [Mass/Vol] 39 mg/dL Low >40 [facility] Comment on above: National Cholesterol Education Program (NCEP) guidelines:<40 mg/dL: Low HDL-cholesterol (major risk factor for CHD)>= 60 mg/dL: High HDL-cholesterol (negative risk factor for CHD)HDL-cholesterol is affected by a number of factors, e.g. smoking, exercise, hormones, sex and age. Serum or plasma cholesterol measurement (mass/volume)Ordered By: Samson Elder on 07-06-2024 Cholesterol [Mass/Vol] 106 mg/dL <201 [facility] Comment on above: Cholesterol level, D esirable <200 mg/dLBorderline high cholesterol 200-239 mg/dLHigh cholesterol >=240 mg/dLRecommendations of the NCEP Adult Treatment Panel for the following risk-cutoff thresholds for the [place] population. Serum or plasma urea nitroge n measurement (mass/volume)Ordered By: Samson Elder on 07-06-2024 Urea nitrogen [Mass/Vol] 25 mg/dL High 4-19 [facility] Sodium levelOrdered By: Nito Elder on 07-06-2024 Sodium [Moles/Vol] 141 mmol/L 133-145 [facility] Total proteinOrdered By: Agustin Elder on 07-06-2024 Protein [Mass/Vol] 6.6 g/dL 5.9-8.4 [facility] Triglycerides measurementOrd ered By: Samson Elder on 07-06-2024 Triglyceride [Mass/Vol] 107 mg/dL <199 [facility] Comment on above: The drugs N-Acetylcy steine and Metamizole may falsely depress this assay. Normal range: <150 mg/dLBorderline High: 150-199 mg/dLHigh: 200-499 mg/dLVery High: >500 mg/dL White blood cell (WBC) count Ordered By: Mi Hernandez on 07-06-2024 WBC (Bld) [#/Vol] 6.2 10*3/uL 4.4-11.0 [facility] Progress Noteon 07-05-2024 Progress Note [facility]: [facility] [address] [facility] [address] Dept: [phone] Dept Loc: [phone] Visit type: Established patient Reason for Visit: [...] circumstances: Recently seen in person, lives in [place] . The patient has been advised of [...] stated that they are currently in the [facility]. If the patient is a minor, [...] leg res (more content not included)... Normal [facility] CR - History AND Physicalon 07-04-2024 CR - History & Physical Normal [facility] Progress Noteon 06-30-2024 Progress Note 06/30/2024: Reached out to CCU to ask for assistance reaching [facility]. Shared my contact information with request for [...] Critical Care unit. Will reach out to [facility]. Support provided. Nimisha shared appreciation for his level of recovery. Follow up outreach scheduled with goal of completing the SDOH assessment. 06/22/2024 Reviewed EMR prior to today's outreach. Noted Mr. Thrasher is home from [facility]. Plan for Cardiac Rehab. BPCI call made to Mr. Nimisha Thrasher. Introduced self and reviewed role on [facility]'s BPCI team. Verified Nimisha is able and agreeable to speak today. Assessed for needs or concerns. Nimisha shared he lives in [place] with his . He identified having a [...] GDMT for CABG. Able to discharge to [facility] on POD#06. 06/08/2024: Referral received from LIZZIE Brand with the BPCI program, with request to update the social determinants of health questionnaire and assess for any social work needs. Outreach scheduled. Normal [facility] Basic Metabolic Profile (BMP )on 06-27-2024 BUN Normal 4-19 [facility] Comment on above: Result Comment: Canc elled via OM: Order Changed Performed By: #### L 500.2500, L100.0100 ####[facility] [address] [place], [place], [id number] BUN/CRE Normal 10-20 [facility] Comment on above: Result Comment: Canc elled via OM: Order Changed Performed By: #### L 500.2500, L100.0100 ####[facility] [address] [place], [address] Calcium Normal 7.6-11.0 [facility] Comment on above: Result Comment: Canc elled via OM: Order Changed Performed By: #### L 500.2500, L100.0100 ####[facility] [address] [place], [address] CL Normal 98-108 [facility] Comment on above: Result Comment: Canc elled via OM: Order Changed Performed By: #### L 500.2500, L100.0100 ####[facility] [address] [place], [address] CO2 Normal 21.0-32.0 [facility] Comment on above: Result Comment: Canc elled via OM: Order Changed Performed By: #### L 500.2500, L100.0100 ####[facility] [address] [place], [address] CREAT,SERUM Normal 0.70-1.20 [facility] Comment on above: Result Comment: Canc elled via OM: Order Changed Performed By: #### L 500.2500, L100.0100 ####[facility] [address] [place], [address] eGFR Normal >60 [facility] Comment on above: Result Comment: Canc elled via OM: Order Changed Performed By: #### L 500.2500, L100.0100 ####[facility] [address] [place], [address] GAP Normal 5-15 [facility] Comment on above: Result Comment: Canc elled via OM: Order Changed Performed By: #### L 500.2500, L100.0100 ####[facility] [address] [place], [address] GLU Normal 70-99 [facility] Comment on above: Result Comment: Canc elled via OM: Order Changed Performed By: #### L 500.2500, L100.0100 ####[facility] [address] [place], [address] Potassium Normal 3.3-5.1 [facility] Comment on above: Result Comment: Canc elled via OM: Order Changed Performed By: #### L 500.2500, L100.0100 ####[facility] [address] [place], [address] Basic Metabolic Profile (BMP) Normal 133-145 [facility] Comment on above: Result Comment: Canc elled via OM: Order Changed Performed By: #### L 500.2500, L100.0100 ####[facility] [address] [place], [address] CBC W/Diff, Automatedon 05-0 6-2024 Absolute Neut Normal 2.0-7.7 [facility] Comment on above: Result Comment: Canc elled via OM: Order Changed Performed By: #### L 500.2500, L100.0100 ####[facility] [address] [place], [address] HCT Normal 40-54 [facility] Comment on above: Result Comment: Canc elled via OM: Order Changed Performed By: #### L 500.2500, L100.0100 ####[facility] [address] [place], [address] HGB Normal 13.0-16.5 [facility] Comment on above: Result Comment: Canc elled via OM: Order Changed Performed By: #### L 500.2500, L100.0100 ####[facility] [address] [place], [address] MCH Normal 27.0-32.0 [facility] Comment on above: Result Comment: Canc elled via OM: Order Changed Performed By: #### L 500.2500, L100.0100 ####[facility] [address] [place], [address] MCHC Normal 32-36 [facility] Comment on above: Result Comment: Canc elled via OM: Order Changed Performed By: #### L 500.2500, L100.0100 ####[facility] [address] [place], [address] MCV Normal 80-94 [facility] Comment on above: Result Comment: Canc elled via OM: Order Changed Performed By: #### L 500.2500, L100.0100 ####[facility] [address] [place], [address] NEUT% Normal 47-70 [facility] Comment on above: Result Comment: Canc elled via OM: Order Changed Performed By: #### L 500.2500, L100.0100 ####[facility] [address] [place], [address] PLT Normal 150-450 [facility] Comment on above: Result Comment: Canc elled via OM: Order Changed Performed By: #### L 500.2500, L100.0100 ####[facility] [address] [place], [address] RBC Normal 4.6-6.2 [facility] Comment on above: Result Comment: Canc elled via OM: Order Changed Performed By: #### L 500.2500, L100.0100 ####[facility] [address] [place], [address] RDW CV Normal 11.6-14.6 [facility] Comment on above: Result Comment: Canc elled via OM: Order Changed Performed By: #### L 500.2500, L100.0100 ####[facility] [address] [place], [address] RDW SD Normal 35.1-43.9 [facility] Comment on above: Result Comment: Canc elled via OM: Order Changed Performed By: #### L 500.2500, L100.0100 ####[facility] [address] [place], [address] WBC Normal 4.4-11.0 [facility] Comment on above: Result Comment: Canc elled via OM: Order Changed Performed By: #### L 500.2500, L100.0100 ####[facility] [address] [place], [address] Progress Noteon 06-27-2024 Progress Note 06/27/24 1011 [...] appointments, Cardiac Rehab, Medications, and diabetes) [facility] Progress Note BPCI PRN call ADMIT DATE: 05/10/2024 DISCHARGE DATE: 05/16/2024 SURGERY: 05/10/24: s/p CABGx3 (PADILLA-LAD, RSVG-OM1, RSVG-PDA with endarterectomy), LEVH, RAYMOND with Dr. Velasco PMH: FELICIA, Parkinson's disease, CAD, HTN, DM2 Called [phone] and spoke to the patient. The patient is active with home care: PT, OT, SN-home care through [facility] services. Patient stated overall he is doing well. Went over follow up appts with the patient: 07/05 Cardiothoracic Surgery Patient stated he seen PCP Patient asked about restrictions post surgery- patient will discuss with Miguel Angel at office visit on 07/05/24. [facility]-patient heard from them and he [...] outreach to check on the patient. [facility] 36on 06-23-2024 36 Order sent to [facility] cardiac rehab. [facility] Progress Noteon 06-23-2024 Progress Note 06/23/2024: Received call from Nimisha asking for assistance reaching out to staff member in Environmental Services who offered kindness when he was in the Cardiac Critical Care unit. [facility] Support provided. Nimisha shared appreciation for his level of recovery. Follow up outreach scheduled with goal of completing the SDOH assessment. 06/22/2024 Reviewed EMR prior to today's outreach. [facility]. BPCI call made to Mr. Nimisha Thrasher. Introduced self and reviewed role on [facility]'s BPCI team. Verified Nimisha is able and agreeable to speak today. Assessed for needs or concerns. Nimisha shared he lives in [place] with his . He identified having a [...] GDMT for CABG. Able to discharge to [facility] on POD#06. 06/08/2024: Referral received from LIZZIE Brand with the BPCI program, with request to update the social determinants of health questionnaire and assess for any social work needs. Outreach scheduled. Normal [facility] Office Visiton 06-22-2024 Follow-up visit [id number] Farhana Thrasher 1940 M Date Provider Department Center 06/22/2024 [id number]-QORTDGARMIGUEL ANGEL MARRERO [facility] None Family History Problem Relation Age of Onset Stroke Mother COPD Father Coronary artery disease Father Coronary artery disease Brother Heart attack Brother Family Status - Relation Status Age at Mother Father Brother Level of Service:11888 MS POSTOP FOLLOW UP VISIT RELATED TO ORIGINAL PX Reason for Visit and Comments: Post-op [483] Normal [facility] Progress Noteon 06-22-2024 Progress Note [facility]: [facility] [address] [facility] [address] Dept: [phone] Dept Loc: [phone] Visit type: Established patient Reason for Visit: Post-op Assessment and Plan 1. S/P CABG (coronary artery bypass graft) - [facility] Cardiac/Pulmonary Rehab 05/10/24: s/p CABGx3 (PADILLA-LAD, [...] insulin glargine-lixisenatide (more content not included)... Normal [facility] Basic Metabolic Profile (BMP )on 06-20-2024 BUN Normal 4-19 [facility] Comment on above: Result Comment: Canc elled via OM: Order Changed Performed By: #### L 100.0100, L500.2500 ####[facility] [address] [place], [address] BUN/CRE Normal 10-20 [facility] Comment on above: Result Comment: Canc elled via OM: Order Changed Performed By: #### L 100.0100, L500.2500 ####[facility] [address] [place], [address] Calcium Normal 7.6-11.0 [facility] Comment on above: Result Comment: Canc elled via OM: Order Changed Performed By: #### L 100.0100, L500.2500 ####[facility] [address] [place], [address] CL Normal 98-108 [facility] Comment on above: Result Comment: Canc elled via OM: Order Changed Performed By: #### L 100.0100, L500.2500 ####[facility] [address] [place], [address] CO2 Normal 21.0-32.0 [facility] Comment on above: Result Comment: Canc elled via OM: Order Changed Performed By: #### L 100.0100, L500.2500 ####[facility] [address] [place], [address] CREAT,SERUM Normal 0.70-1.20 [facility] Comment on above: Result Comment: Canc elled via OM: Order Changed Performed By: #### L 100.0100, L500.2500 ####[facility] [address] [place], [address] eGFR Normal >60 [facility] Comment on above: Result Comment: Canc elled via OM: Order Changed Performed By: #### L 100.0100, L500.2500 ####[facility] [address] [place], [address] GAP Normal 5-15 [facility] Comment on above: Result Comment: Canc elled via OM: Order Changed Performed By: #### L 100.0100, L500.2500 ####[facility] [address] [place], [address] GLU Normal 70-99 [facility] Comment on above: Result Comment: Canc elled via OM: Order Changed Performed By: #### L 100.0100, L500.2500 ####[facility] [address] [place], [address] Potassium Normal 3.3-5.1 [facility] Comment on above: Result Comment: Canc elled via OM: Order Changed Performed By: #### L 100.0100, L500.2500 ####[facility] [address] [place], [address] Basic Metabolic Profile (BMP) Normal 133-145 [facility] Comment on above: Result Comment: Canc elled via OM: Order Changed Performed By: #### L 100.0100, L500.2500 ####[facility] [address] [place], [address] CBC W/Diff, Automatedon 04-2 Absolute Neut Normal 2.0-7.7 [facility] Comment on above: Result Comment: Canc elled via OM: Order Changed Performed By: #### L 100.0100, L500.2500 ####[facility] [address] [place], [address] HCT Normal 40-54 [facility] Comment on above: Result Comment: Canc elled via OM: Order Changed Performed By: #### L 100.0100, L500.2500 ####[facility] [address] [place], [address] HGB Normal 13.0-16.5 [facility] Comment on above: Result Comment: Canc elled via OM: Order Changed Performed By: #### L 100.0100, L500.2500 ####[facility] [address] [place], [address] MCH Normal 27.0-32.0 [facility] Comment on above: Result Comment: Canc elled via OM: Order Changed Performed By: #### L 100.0100, L500.2500 ####[facility] [address] [place], [address] MCHC Normal 32-36 [facility] Comment on above: Result Comment: Canc elled via OM: Order Changed Performed By: #### L 100.0100, L500.2500 ####[facility] [address] [place], [address] MCV Normal 80-94 [facility] Comment on above: Result Comment: Canc elled via OM: Order Changed Performed By: #### L 100.0100, L500.2500 ####[facility] [address] [place], [address] NEUT% Normal 47-70 [facility] Comment on above: Result Comment: Canc elled via OM: Order Changed Performed By: #### L 100.0100, L500.2500 ####[facility] [address] [place], [address] PLT Normal 150-450 [facility] Comment on above: Result Comment: Canc elled via OM: Order Changed Performed By: #### L 100.0100, L500.2500 ####[facility] [address] [place], [address] RBC Normal 4.6-6.2 [facility] Comment on above: Result Comment: Canc elled via OM: Order Changed Performed By: #### L 100.0100, L500.2500 ####[facility] [address] [place], [address] RDW CV Normal 11.6-14.6 [facility] Comment on above: Result Comment: Canc elled via OM: Order Changed Performed By: #### L 100.0100, L500.2500 ####[facility] [address] [place], [address] RDW SD Normal 35.1-43.9 [facility] Comment on above: Result Comment: Canc elled via OM: Order Changed Performed By: #### L 100.0100, L500.2500 ####[facility] [address] [place], [address] WBC Normal 4.4-11.0 [facility] Comment on above: Result Comment: Canc elled via OM: Order Changed Performed By: #### L 100.0100, L500.2500 ####[facility] [address] [place], [address] Absolute lymphocyte countOrd ered By: Fredis Moon on 06-14-2024 Lymphocytes Auto (Unsp spec) [#/Vol] 1.16 10*3/uL 0.83-4.51 [facility] Absolute neutrophil countOrd ered By: Fredis Moon on 06-14-2024 Neutrophils (Bld) [#/Vol] 3.5 10*3/uL 2.0-7.7 [facility] Anion gap in Serum or Plasma Ordered By: Fredis Moon on 06-14-2024 Anion gap [Moles/Vol] 10 mmol/L 5-[address] [facility] Automated lymphocyte count a s percentage of total leukocytesOrdered By: Fredis Moon on 06-14-2024 Lymphocytes/100 WBC Auto (Unsp spec) 20.5 % [facility] BUN/creatinine ratioOrdered By: Fredis Moon on 06-14-2024 Urea nitrogen/Creatinine [Mass ratio] 19.7 mg/mg 10- [facility] Basic Metabolic Profile (BMP )on 06-14-2024 BUN/CRE 19.7 RATIO Normal - [facility] Comment on above: Performed By: #### L 500.2500, L100.0100 ####[facility] [address] [place], [address] Calcium [Mass/Vol] 8.9 mg/dL Normal 7.6-11.0 [facility] Comment on above: Performed By: #### L 500.2500, L100.0100 ####[facility] [address] [place], [address] Chloride [Moles/Vol] 104 mmol/L Normal 98-108 [facility] Comment on above: Performed By: #### L 500.2500, L100.0100 ####[facility] [address] [place], [address] CO2 [Moles/Vol] 24.5 mmol/L Normal 21.0-32.0 [facility] Comment on above: Performed By: #### L 500.2500, L100.0100 ####[facility] [address] [place], [address] Creatinine [Mass/Vol] 0.91 mg/dL Normal 0.70-1.[address] [facility] Comment on above: Performed By: #### L 500.2500, L100.0100 ####[facility] [address] [place], [address] ECRCL 66.65 ml/min Normal 50-250 [facility] Comment on above: Performed By: #### L 500.2500, L100.0100 ####[facility] [address] [place], [address] GAP 10 Normal 5-15 [facility] Comment on above: Performed By: #### L 500.2500, L100.0100 ####[facility] [address] [place], [address] GFR/1.73 sq M.predicted among non-blacks MDRD (S/P/Bld) [Vol rate/Area] 84 mL/min/{1.73_m2} Normal >60 [facility] Comment on above: Result Comment: mL/m in/1.73m2 CKD-EPI Creatinine Equation (2020) Performed By: #### L 500.2500, L100.0100 ####[facility] [address] [place], [address] Glucose [Mass/Vol] 171 mg/dL High 70-99 [facility] Comment on above: Performed By: #### L 500.2500, L100.0100 ####[facility] [address] [place], [address] Potassium [Moles/Vol] 4.4 mmol/L Normal 3.3-5.[address] [facility] Comment on above: Performed By: #### L 500.2500, L100.0100 ####[facility] [address] [place], [address] Sodium [Moles/Vol] 139 mmol/L Normal 133-145 [facility] Comment on above: Performed By: #### L 500.2500, L100.0100 ####[facility] [address] [place], [address] Urea nitrogen [Mass/Vol] 18 mg/dL Normal 4-19 [facility] Comment on above: Performed By: #### L 500.2500, L100.0100 ####[facility] [address] [place], [address] Basophil percentageOrdered B y: Fredis Moon on 06-14-2024 Basophils/100 WBC (Bld) 0.9 % 0-1 [facility] Bedside Glucoseon 06-14-2024 FINGERSTICK GLU 171 mg/dL High 74-106 [facility] Comment on above: Result Comment: NIKI ROMERO OF PATIENT CARE PER NURSING PROTOCOL Performed By: #### L 501.080 ####[facility] [address] [place], [address] CBC W/Diff, Automatedon 05-24 Absolute Lymph 1.16 X10 3/uL Normal 0.83-4.51 [facility] Comment on above: Performed By: #### L 500.2500, L100.0100 ####[facility] [address] [place], [address] Absolute Neut 3.5 X10 3/uL Normal 2.0-7.7 [facility] Comment on above: Performed By: #### L 500.2500, L100.0100 ####[facility] [address] [place], [address] Basophils/100 WBC (Bld) 0.9 % Normal 0-1 [facility] Comment on above: Performed By: #### L 500.2500, L100.0100 ####[facility] [address] [place], [address] Eosinophils/100 WBC (Bld) 2.8 % Normal 0-5 [facility] Comment on above: Performed By: #### L 500.2500, L100.0100 ####[facility] [address] [place], [address] Erythrocyte distribution width (RBC) [Ratio] 14.4 % Normal 11.6-14.6 [facility] Comment on above: Performed By: #### L 500.2500, L100.0100 ####[facility] [address] [place], [address] Hematocrit (Bld) [Volume fraction] 33.5 % Low 40-54 [facility] Comment on above: Performed By: #### L 500.2500, L100.0100 ####[facility] [address] [place], [address] Hemoglobin (Bld) [Mass/Vol] 10.9 g/dL Low 13.0-16.5 [facility] Comment on above: Performed By: #### L 500.2500, L100.0100 ####[facility] [address] [place], [address] IG% 0.700 Normal 0.0-0.9 [facility] Comment on above: Result Comment: IG% - Immature Granulocytes (promyelocytes, myelocytes andmetamyelocytes) > 1% indicates that a LEFT SHIFT is Present. Performed By: #### L 500.2500, L100.0100 ####[facility] [address] [place], [address] Lymphocytes/100 WBC (Bld) 20.5 % Normal 19-41 [facility] Comment on above: Performed By: #### L 500.2500, L100.0100 ####[facility] [address] [place], [address] MCH (RBC) [Entitic mass] 28.5 pg Normal 27.0-32.0 [facility] Comment on above: Performed By: #### L 500.2500, L100.0100 ####[facility] [address] [place], [address] MCHC (RBC) [Mass/Vol] 32.5 g/dL Normal 32-[address] [facility] Comment on above: Performed By: #### L 500.2500, L100.0100 ####[facility] [address] [place], [address] MCV (RBC) [Entitic vol] 87.5 fL Normal 80-94 [facility] Comment on above: Performed By: #### L 500.2500, L100.0100 ####[facility] [address], [address] Monocytes/100 WBC (Bld) 14.1 % High 0-10 [facility] Comment on above: Performed By: #### L 500.2500, L100.0100 ####[facility] [address], [address] Neutrophils/100 WBC (Bld) 61.0 % Normal 47-70 [facility] Comment on above: Performed By: #### L 500.2500, L100.0100 ####[facility] [address] [place], [address] Nucleated RBC (Bld) [#/Vol] 0 10*3/uL Normal 0-5 [facility] Comment on above: Performed By: #### L 500.2500, L100.0100 ####[facility] [address] [place], [address] Platelet mean volume (Bld) [Entitic vol] 10.0 fL Normal 6.2-12.0 [facility] Comment on above: Performed By: #### L 500.2500, L100.0100 ####[facility] [address], [address] Platelets (Bld) [#/Vol] 166 10*3/uL Normal 150-450 [facility] Comment on above: Performed By: #### L 500.2500, L100.0100 ####[facility] [address], [address] RBC (Bld) [#/Vol] 3.83 10*6/uL Low 4.6-6.2 [facility] Comment on above: Performed By: #### L 500.2500, L100.0100 ####[facility] [address] [place], [address] RDW SD 46.1 fl High 35.1-43.9 [facility] Comment on above: Performed By: #### L 500.2500, L100.0100 ####[facility] [address] [place], [address] WBC (Bld) [#/Vol] 5.7 10*3/uL Normal 4.4-11.0 [facility] Comment on above: Performed By: #### L 500.2500, L100.0100 ####[facility] [address] [place], [address] Carbon dioxide, total [Moles /volume] in Central venous bloodOrdered By: Fredis Moon on 06-14-2024 CO2 [Moles/Vol] 24.5 mmol/L 21.0-32.0 [facility] Chloride assayOrdered By: Mir Moon on 06-14-2024 Chloride [Moles/Vol] 104 mmol/L 98-108 [facility] Eosinophil percentageOrdered By: Fredis Moon 06-14-2024 Eosinophils/100 WBC (Bld) 2.8 % 0-5 [facility] Erythrocyte distribution wid th ratioOrdered By: Fredis Moon 06-14-2024 Erythrocyte distribution width (RBC) [Ratio] 14.4 % 11.6-14.6 [facility] Erythrocyte distribution wid th standard deviationOrdered By: Fredis Moon on 06-14-2024 Erythrocyte distribution width (RBC) [Ratio] 46.1 fl High 35.1-43.9 [facility] Glomerular filtration rate ( GFR) estimation/1.73 sq m using serum, plasma, or whole bOrdered By: Fredis Moon on 06-14-2024 GFR/1.73 sq M.predicted among non-blacks MDRD (S/P/Bld) [Vol rate/Area] 84 mL/min/{1.73_m2} >60 [facility] Comment on above: mL/min/1.73m2 CKD-EP I Creatinine Equation (2021) Glucose measurement at bedsi deOrdered By: Fredis Moon on 06-14-2024 Glucose [Mass/Vol] 171 mg/dL High 74-106 [facility] Comment on above: MANAGEMENT OF PATIEN T CARE PER NURSING PROTOCOL Hematocrit Auto (Bld) [Volum e fraction]Ordered By: Fredis Moon on 06-14-2024 Hematocrit (Bld) [Volume fraction] 33.5 % Low 40-54 [facility] Hemoglobin measurementOrdere d By: Fredis Moon on 06-14-2024 Hemoglobin (Bld) [Mass/Vol] 10.9 g/dL Low 13.0-16.5 [facility] Immature granulocytes/100 WB C Auto (Bld)Ordered By: Fredis Moon 06-14-2024 Immature granulocytes/100 WBC (Bld) 0.700 % 0.0-0.9 [facility] Comment on above: IG% - Immature Granu locytes (promyelocytes, myelocytes and metamyelocytes) > 1% indicates that a LEFT SHIFT is Present. MCV (mean corpuscular volume ) determinationOrdered By: Fredis Moon 06-14-2024 MCV (RBC) [Entitic vol] 87.5 fL 80-94 [facility] Mean corpuscular hemoglobin (MCH) determinationOrdered By: Fredis Moon 06-14-2024 MCH (RBC) [Entitic mass] 28.5 pg 27.0-32.0 [facility] Mean corpuscular hemoglobin concentration (MCHC) determinationOrdered By: Fredis Moon 06-14-2024 MCHC (RBC) [Mass/Vol] 32.5 g/dL 32-[address] [facility] Mean platelet volume determi nationOrdered By: Fredis Moon 06-14-2024 Platelet mean volume (Bld) [Entitic vol] 10.0 fL 6.2-12.0 [facility] Monocyte percentageOrdered B y: Fredis Moon on 06-14-2024 Monocytes/100 WBC (Bld) 14.1 % High 0-10 [facility] Neutrophil percentageOrdered By: Fredis Moon 06-14-2024 Neutrophils/100 WBC (Bld) 61.0 % 47-70 [facility] Nucleated red blood cell per centageOrdered By: Fredis Moon 5 Nucleated RBC/100 WBC (Bld) [Ratio] 0 % 0-5 [facility] Platelet countOrdered By: Mir Moon on 06-14-2024 Platelets (Bld) [#/Vol] 166 10*3/uL 150-450 [facility] Potassium measurement (mass/ volume)Ordered By: Fredis Moon on 06-14-2024 Potassium (Unsp spec) [Mass/Vol] 4.4 mmol/L 3.3-5.1 [facility] RBC Auto (Bld) [#/Vol]Ordere d By: Fredis Moon on 06-14-2024 RBC (Bld) [#/Vol] 3.83 10*6/uL Low 4.6-6.2 [facility] Serum creatinine measurement (mass/volume)Ordered By: Fredis Moon on 06-14-2024 Creatinine [Mass/Vol] 0.91 mg/dL 0.70-1.[address] [facility] Serum glucose measurement (m ass/volume)Ordered By: Fredis Moon on 06-14-2024 Glucose [Mass/Vol] 171 mg/dL High 70-99 [facility] Serum or plasma calcium mt urement (mass/volume)Ordered By: Fredis Moon on 06-14-2024 Calcium [Mass/Vol] 8.9 mg/dL 7.6-11.0 [facility] Serum or plasma urea nitroge n measurement (mass/volume)Ordered By: Fredis Moon on 06-14-2024 Urea nitrogen [Mass/Vol] 18 mg/dL 4- [facility] Sodium levelOrdered By: Fredis Moon on 06-14-2024 Sodium [Moles/Vol] 139 mmol/L 133-145 [facility] White blood cell (WBC) count Ordered By: Fredis Moon on 06-14-2024 WBC (Bld) [#/Vol] 5.7 10*3/uL 4.4-11.0 [facility] Basic Metabolic Profile (BMP )on 06-13-2024 BUN Normal - [facility] Comment on above: Result Comment: Canc elled via OM: Order Changed Performed By: #### L 500.2500, L100.0100 ####[facility] [address] [place], [address] BUN/CRE Normal 10-20 [facility] Comment on above: Result Comment: Canc elled via OM: Order Changed Performed By: #### L 500.2500, L100.0100 ####[facility] [address] [place], [address] Calcium Normal 7.6-11.0 [facility] Comment on above: Result Comment: Canc elled via OM: Order Changed Performed By: #### L 500.2500, L100.0100 ####[facility] [address] [place], [address] CL Normal 98-108 [facility] Comment on above: Result Comment: Canc elled via OM: Order Changed Performed By: #### L 500.2500, L100.0100 ####[facility] [address] [place], [address] CO2 Normal 21.0-32.0 [facility] Comment on above: Result Comment: Canc elled via OM: Order Changed Performed By: #### L 500.2500, L100.0100 ####[facility] [address] [place], [address] CREAT,SERUM Normal 0.70-1.20 [facility] Comment on above: Result Comment: Canc elled via OM: Order Changed Performed By: #### L 500.2500, L100.0100 ####[facility] [address] [place], [address] eGFR Normal >60 [facility] Comment on above: Result Comment: Canc elled via OM: Order Changed Performed By: #### L 500.2500, L100.0100 ####[facility] [address] [place], [address] GAP Normal 5-15 [facility] Comment on above: Result Comment: Canc elled via OM: Order Changed Performed By: #### L 500.2500, L100.0100 ####[facility] [address] [place], [address] GLU Normal 70-99 [facility] Comment on above: Result Comment: Canc elled via OM: Order Changed Performed By: #### L 500.2500, L100.0100 ####[facility] [address] [place], [address] Potassium Normal 3.3-5.1 [facility] Comment on above: Result Comment: Canc elled via OM: Order Changed Performed By: #### L 500.2500, L100.0100 ####[facility] [address] [place], [address] Basic Metabolic Profile (BMP) Normal 133-145 [facility] Comment on above: Result Comment: Canc elled via OM: Order Changed Performed By: #### L 500.2500, L100.0100 ####[facility] [address] [place], [address] Bedside Glucoseon 06-13-2024 FINGERSTICK GLU 183 mg/dL High 74-106 [facility] Comment on above: Result Comment: NIKI GEMENT OF PATIENT CARE PER NURSING PROTOCOL Performed By: #### L 501.080 ####[facility] [address] [place], [address] FINGERSTICK GLU 147 mg/dL High 74-106 [facility] Comment on above: Result Comment: NIKI GEMENT OF PATIENT CARE PER NURSING PROTOCOL Performed By: #### L 501.080 ####[facility] [address] [place], [address] FINGERSTICK GLU 214 mg/dL High 74-106 [facility] Comment on above: Result Comment: NIKI GEMENT OF PATIENT CARE PER NURSING PROTOCOL Performed By: #### L 501.080 ####[facility] [address] [place], [address] FINGERSTICK GLU 135 mg/dL High 74-106 [facility] Comment on above: Result Comment: NIKI ROMERO OF PATIENT CARE PER NURSING PROTOCOL Performed By: #### L 501.080 ####[facility] [address] [place], [address] CBC W/Diff, Automatedon 04-2 Absolute Neut Normal 2.0-7.7 [facility] Comment on above: Result Comment: Canc elled via OM: Order Changed Performed By: #### L 500.2500, L100.0100 ####[facility] [address] [place], [address] HCT Normal 40-54 [facility] Comment on above: Result Comment: Canc elled via OM: Order Changed Performed By: #### L 500.2500, L100.0100 ####[facility] [address] [place], [address] HGB Normal 13.0-16.5 [facility] Comment on above: Result Comment: Canc elled via OM: Order Changed Performed By: #### L 500.2500, L100.0100 ####[facility] [address] [place], [address] MCH Normal 27.0-32.0 [facility] Comment on above: Result Comment: Canc elled via OM: Order Changed Performed By: #### L 500.2500, L100.0100 ####[facility] [address] [place], [address] MCHC Normal 32-36 [facility] Comment on above: Result Comment: Canc elled via OM: Order Changed Performed By: #### L 500.2500, L100.0100 ####[facility] [address] [place], [address] MCV Normal 80-94 [facility] Comment on above: Result Comment: Canc elled via OM: Order Changed Performed By: #### L 500.2500, L100.0100 ####[facility] [address] [place], [address] NEUT% Normal 47-70 [facility] Comment on above: Result Comment: Canc elled via OM: Order Changed Performed By: #### L 500.2500, L100.0100 ####[facility] [address] [place], [address] PLT Normal 150-450 [facility] Comment on above: Result Comment: Canc elled via OM: Order Changed Performed By: #### L 500.2500, L100.0100 ####[facility] [address] [place], [address] RBC Normal 4.6-6.2 [facility] Comment on above: Result Comment: Canc elled via OM: Order Changed Performed By: #### L 500.2500, L100.0100 ####[facility] [address] [place], [address] RDW CV Normal 11.6-14.6 [facility] Comment on above: Result Comment: Canc elled via OM: Order Changed Performed By: #### L 500.2500, L100.0100 ####[facility] [address] [place], [address] RDW SD Normal 35.1-43.9 [facility] Comment on above: Result Comment: Canc elled via OM: Order Changed Performed By: #### L 500.2500, L100.0100 ####[facility] [address] [place], [address] WBC Normal 4.4-11.0 [facility] Comment on above: Result Comment: Canc elled via OM: Order Changed Performed By: #### L 500.2500, L100.0100 ####[facility] [address] [place], [address] Bedside Glucoseon 06-12-2024 FINGERSTICK GLU 199 mg/dL High 74-106 [facility] Comment on above: Result Comment: NIKI GEMENT OF PATIENT CARE PER NURSING PROTOCOL Performed By: #### L 501.080 ####[facility] [address] [place], [address] FINGERSTICK GLU 107 mg/dL High 74-106 [facility] Comment on above: Result Comment: NIKI GEMENT OF PATIENT CARE PER NURSING PROTOCOL Performed By: #### L 501.080 ####[facility] [address] [place], [address] FINGERSTICK GLU 200 mg/dL High [address] [place] [address] Comment on above: Result Comment: NIKI GEMENT OF PATIENT CARE PER NURSING PROTOCOL Performed By: #### L 501.080 ####[facility] [address] [place], [address] FINGERSTICK GLU 177 mg/dL High -[address] [place] [address] Comment on above: Result Comment: NIKI GEMENT OF PATIENT CARE PER NURSING PROTOCOL Performed By: #### L 501.080 ####[facility] [address] [place], [address] Bedside Glucoseon 06-11-2024 FINGERSTICK GLU 221 mg/dL High -106 [facility] Comment on above: Result Comment: NIKI GEMENT OF PATIENT CARE PER NURSING PROTOCOL Performed By: #### L 501.080 ####[facility] [address] [place], [address] FINGERSTICK GLU 190 mg/dL High [address] [place] [address] Comment on above: Result Comment: NIKI GEMENT OF PATIENT CARE PER NURSING PROTOCOL Performed By: #### L 501.080 ####[facility] [address] [place], [address] FINGERSTICK GLU 193 mg/dL High -106 [facility] Comment on above: Result Comment: NIKI GEMENT OF PATIENT CARE PER NURSING PROTOCOL Performed By: #### L 501.080 ####[facility] [address] [place], [address] FINGERSTICK GLU 195 mg/dL High [address] [place] [address] Comment on above: Result Comment: NIKI GEMENT OF PATIENT CARE PER NURSING PROTOCOL Performed By: #### L 501.080 ####[facility] [address] [place], [address] Bedside Glucoseon 06-10-2024 FINGERSTICK GLU 187 mg/dL High [address] [place] [address] Comment on above: Result Comment: NIKI GEMENT OF PATIENT CARE PER NURSING PROTOCOL Performed By: #### L 501.080 ####[facility] [address] [place], [address] FINGERSTICK GLU 149 mg/dL High [address] [place] [address] Comment on above: Result Comment: NIKI GEMENT OF PATIENT CARE PER NURSING PROTOCOL Performed By: #### L 501.080 ####[facility] [address] [place], [address] FINGERSTICK GLU 200 mg/dL High [address] [place] [address] Comment on above: Result Comment: NIKI GEMENT OF PATIENT CARE PER NURSING PROTOCOL Performed By: #### L 501.080 ####[facility] [address] [place], [address] FINGERSTICK GLU 189 mg/dL High [address] [place] [address] Comment on above: Result Comment: NIKI GEMENT OF PATIENT CARE PER NURSING PROTOCOL Performed By: #### L 501.080 ####[facility] [address] [place], [address] Bedside Glucoseon 5 FINGERSTICK GLU 195 mg/dL High [address] [place] [address] Comment on above: Result Comment: NIKI GEMENT OF PATIENT CARE PER NURSING PROTOCOL Performed By: #### L 501.080 ####[facility] [address] [place], [address] FINGERSTICK GLU 236 mg/dL High [address] [place] [address] Comment on above: Result Comment: NIKI GEMENT OF PATIENT CARE PER NURSING PROTOCOL Performed By: #### L 501.080 ####[facility] [address] [place], [address] FINGERSTICK GLU 183 mg/dL High -106 [facility] Comment on above: Result Comment: NIKI GEMENT OF PATIENT CARE PER NURSING PROTOCOL Performed By: #### L 501.080 ####[facility] [address] [place], [address] FINGERSTICK GLU 178 mg/dL High [address] [place] [address] Comment on above: Result Comment: NIKI GEMENT OF PATIENT CARE PER NURSING PROTOCOL Performed By: #### L 501.080 ####[facility] [address] [place], [address] Bedside Glucoseon 06-08-2024 FINGERSTICK GLU 241 mg/dL High [address] [place] [address] Comment on above: Result Comment: NIKI GEMENT OF PATIENT CARE PER NURSING PROTOCOL Performed By: #### L 501.080 ####[facility] [address] [place], [address] FINGERSTICK GLU 172 mg/dL High -[address] [place] [address] Comment on above: Result Comment: NIKI GEMENT OF PATIENT CARE PER NURSING PROTOCOL Performed By: #### L 501.080 ####[facility] [address] [place], [address] FINGERSTICK GLU 162 mg/dL High [address] [place] [address] Comment on above: Result Comment: NIKI GEMENT OF PATIENT CARE PER NURSING PROTOCOL Performed By: #### L 501.080 ####[facility] [address] [place], [address] FINGERSTICK GLU 144 mg/dL High 74-106 [facility] Comment on above: Result Comment: NIKI ROMERO OF PATIENT CARE PER NURSING PROTOCOL Performed By: #### L 501.080 ####[facility] [address] [place], [address] Glucose measurement at [facility] deOrdered By: Fredis Moon on 06-08-2024 Bedside Glucose (Misc Panel) 144 mg/dL High 74-106 [facility] Comment on above: MANAGEMENT OF PATIEN T CARE PER NURSING PROTOCOL Absolute neutrophil countOrd ered By: Fredis Moon on 06-07-2024 Neutrophils (Bld) [#/Vol] 2.9 10*3/uL 2.0-7.7 [facility] Anion gap in Serum or Plasma Ordered By: Fredis Moon on 06-07-2024 Anion gap [Moles/Vol] 11 mmol/L 5-[address] [facility] BUN/creatinine ratioOrdered By: Fredis Moon on 06-07-2024 Urea nitrogen/Creatinine [Mass ratio] 20.8 mg/mg High 10-20 [facility] Basic Metabolic Profile (BMP )on 06-07-2024 BUN/CRE 20.8 RATIO High 10-20 [facility] Comment on above: Performed By: #### L 500.2500, L100.0100 ####[facility] [address] [place], [address] Calcium [Mass/Vol] 8.6 mg/dL Normal 7.6-11.0 [facility] Comment on above: Performed By: #### L 500.2500, L100.0100 ####[facility] [address] [place], [address] Chloride [Moles/Vol] 105 mmol/L Normal 98-108 [facility] Comment on above: Performed By: #### L 500.2500, L100.0100 ####[facility] [address] [place], [address] CO2 [Moles/Vol] 21.6 mmol/L Normal 21.0-32.0 [facility] Comment on above: Performed By: #### L 500.2500, L100.0100 ####[facility] [address] [place], [address] Creatinine [Mass/Vol] 0.95 mg/dL Normal 0.70-1.[address] [facility] Comment on above: Performed By: #### L 500.2500, L100.0100 ####[facility] [address] [place], [address] ECRCL 63.63 ml/min Normal 50-250 [facility] Comment on above: Performed By: #### L 500.2500, L100.0100 ####[facility] [address] [place], [address] GAP 11 Normal 5-15 [facility] Comment on above: Performed By: #### L 500.2500, L100.0100 ####[facility] [address] [place], [address] GFR/1.73 sq M.predicted among non-blacks MDRD (S/P/Bld) [Vol rate/Area] 80 mL/min/{1.73_m2} Normal >60 [facility] Comment on above: Result Comment: mL/m in/1.73m2 CKD-EPI Creatinine Equation (2020) Performed By: #### L 500.2500, L100.0100 ####[facility] [address] [place], [address] Glucose [Mass/Vol] 157 mg/dL High 70-99 [facility] Comment on above: Performed By: #### L 500.2500, L100.0100 ####[facility] [address] [place], [address] Potassium [Moles/Vol] 4.3 mmol/L Normal 3.3-5.[address] [facility] Comment on above: Performed By: #### L 500.2500, L100.0100 ####[facility] [address] [place], [address] Sodium [Moles/Vol] 138 mmol/L Normal 133-145 [facility] Comment on above: Performed By: #### L 500.2500, L100.0100 ####[facility] [address] [place], [address] Urea nitrogen [Mass/Vol] 20 mg/dL High 4-19 [facility] Comment on above: Performed By: #### L 500.2500, L100.0100 ####[facility] [address] [place], [address] Basophil percentageOrdered B y: Fredis Moon on 06-07-2024 Basophils/100 WBC (Bld) 0.8 % 0-1 [facility] Bedside Glucoseon 06-07-2024 FINGERSTICK GLU 179 mg/dL High 74-106 [facility] Comment on above: Result Comment: NIKI GEMENT OF PATIENT CARE PER NURSING PROTOCOL Performed By: #### L 501.080 ####[facility] [address] [place], [address] FINGERSTICK GLU 151 mg/dL High 74-106 [facility] Comment on above: Result Comment: NIKI GEMENT OF PATIENT CARE PER NURSING PROTOCOL Performed By: #### L 501.080 ####[facility] [address] [place], [address] FINGERSTICK GLU 219 mg/dL High 74-106 [facility] Comment on above: Result Comment: NIKI GEMENT OF PATIENT CARE PER NURSING PROTOCOL Performed By: #### L 501.080 ####[facility] [address] [place], [address] FINGERSTICK GLU 144 mg/dL High 74-106 [facility] Comment on above: Result Comment: NIKI GEMENT OF PATIENT CARE PER NURSING PROTOCOL Performed By: #### L 501.080 ####[facility] [address] [place], [address] CBC W/Diff, Automatedon 05-23 Absolute Lymph 1.28 X10 3/uL Normal 0.83-4.51 [facility] Comment on above: Performed By: #### L 100.0100 ####[facility] [address] [place], [address] Absolute Neut 2.9 X10 3/uL Normal 2.0-7.7 [facility] Comment on above: Performed By: #### L 100.0100 ####[facility] [address] [place], [address] Basophils/100 WBC (Bld) 0.8 % Normal 0-1 [facility] Comment on above: Performed By: #### L 100.0100 ####[facility] [address] [place], [address] Eosinophils/100 WBC (Bld) 4.3 % Normal 0-5 [facility] Comment on above: Performed By: #### L 100.0100 ####[facility] [address] [place], [address] Erythrocyte distribution width (RBC) [Ratio] 14.6 % Normal 11.6-14.6 [facility] Comment on above: Performed By: #### L 100.0100 ####[facility] [address] [place], [address] Hematocrit (Bld) [Volume fraction] 31.7 % Low 40-54 [facility] Comment on above: Performed By: #### L 100.0100 ####[facility] [address] [place], [address] Hemoglobin (Bld) [Mass/Vol] 10.3 g/dL Low 13.0-16.5 [facility] Comment on above: Performed By: #### L 100.0100 ####[facility] [address] [place], [address] IG% 0.800 Normal 0.0-0.9 [facility] Comment on above: Result Comment: IG% - Immature Granulocytes (promyelocytes, myelocytes andmetamyelocytes) > 1% indicates that a LEFT SHIFT is Present. Performed By: #### L 100.0100 ####[facility] [address] [place], [address] Lymphocytes/100 WBC (Bld) 25.0 % Normal 19-41 [facility] Comment on above: Performed By: #### L 100.0100 ####[facility] [address] [place], [address] MCH (RBC) [Entitic mass] 28.2 pg Normal 27.0-32.0 [facility] Comment on above: Performed By: #### L 100.0100 ####[facility] [address] [place], [address] MCHC (RBC) [Mass/Vol] 32.5 g/dL Normal 32-[address] [facility] Comment on above: Performed By: #### L 100.0100 ####[facility] [address] [place], [address] MCV (RBC) [Entitic vol] 86.8 fL Normal 80-94 [facility] Comment on above: Performed By: #### L 100.0100 ####[facility] [address] [place], [address] Monocytes/100 WBC (Bld) 13.3 % High 0-10 [facility] Comment on above: Performed By: #### L 100.0100 ####[facility] [address] [place], [address] Neutrophils/100 WBC (Bld) 55.8 % Normal 47-70 [facility] Comment on above: Performed By: #### L 100.0100 ####[facility] [address] [place], [address] Nucleated RBC (Bld) [#/Vol] 0 10*3/uL Normal 0-5 [facility] Comment on above: Performed By: #### L 100.0100 ####[facility] [address] [place], [address] Platelet mean volume (Bld) [Entitic vol] 9.6 fL Normal 6.2-12.0 [facility] Comment on above: Performed By: #### L 100.0100 ####[facility] [address] [place], [address] Platelets (Bld) [#/Vol] 169 10*3/uL Normal 150-450 [facility] Comment on above: Performed By: #### L 100.0100 ####[facility] [address] [place], [address] RBC (Bld) [#/Vol] 3.65 10*6/uL Low 4.6-6.2 [facility] Comment on above: Performed By: #### L 100.0100 ####[facility] [address] [place], [address] RDW SD 46.5 fl High 35.1-43.9 [facility] Comment on above: Performed By: #### L 100.0100 ####[facility] [address] [place], [address] WBC (Bld) [#/Vol] 5.1 10*3/uL Normal 4.4-11.0 [facility] Comment on above: Performed By: #### L 100.0100 ####[facility] [address] [place], [address] Absolute Neut Normal 2.0-7.7 [facility] Comment on above: Result Comment: BARC ODE ERROR. REORDERED Performed By: #### L 500.2500, L100.0100 ####[facility] [address] [place], [address] HCT Normal 40-54 [facility] Comment on above: Result Comment: BARC ODE ERROR. REORDERED Performed By: #### L 500.2500, L100.0100 ####[facility] [address] [place], [address] HGB Normal 13.0-16.5 [facility] Comment on above: Result Comment: BARC ODE ERROR. REORDERED Performed By: #### L 500.2500, L100.0100 ####[facility] [address] [place], [address] MCH Normal 27.0-32.0 [facility] Comment on above: Result Comment: BARC ODE ERROR. REORDERED Performed By: #### L 500.2500, L100.0100 ####[facility] [address] [place], [address] MCHC Normal 32-36 [facility] Comment on above: Result Comment: BARC ODE ERROR. REORDERED Performed By: #### L 500.2500, L100.0100 ####[facility] [address] [place], [address] MCV Normal 80-94 [facility] Comment on above: Result Comment: BARC ODE ERROR. REORDERED Performed By: #### L 500.2500, L100.0100 ####[facility] [address] [place], [address] NEUT% Normal 47-70 [facility] Comment on above: Result Comment: BARC ODE ERROR. REORDERED Performed By: #### L 500.2500, L100.0100 ####[facility] [address] [place], [address] PLT Normal 150-450 [facility] Comment on above: Result Comment: BARC ODE ERROR. REORDERED Performed By: #### L 500.2500, L100.0100 ####[facility] [address] [place], [address] RBC Normal 4.6-6.2 [facility] Comment on above: Result Comment: BARC ODE ERROR. REORDERED Performed By: #### L 500.2500, L100.0100 ####[facility] [address] [place], [address] RDW CV Normal 11.6-14.6 [facility] Comment on above: Result Comment: BARC ODE ERROR. REORDERED Performed By: #### L 500.2500, L100.0100 ####[facility] [address] [place], [address] RDW SD Normal 35.1-43.9 [facility] Comment on above: Result Comment: BARC ODE ERROR. REORDERED Performed By: #### L 500.2500, L100.0100 ####[facility] [address] [place], [address] WBC Normal 4.4-11.0 [facility] Comment on above: Result Comment: BARC ODE ERROR. REORDERED Performed By: #### L 500.2500, L100.0100 ####[facility] [address] [place], [address] Carbon dioxide, total [Moles /volume] in Central venous bloodOrdered By: Fredis Moon on 06-07-2024 CO2 [Moles/Vol] 21.6 mmol/L 21.0-32.0 [facility] Chloride assayOrdered By: Mir Moon on 06-07-2024 Chloride [Moles/Vol] 105 mmol/L 98-108 [facility] Eosinophil percentageOrdered By: Fredis Moon on 06-07-2024 Eosinophils/100 WBC (Bld) 4.3 % 0-5 [facility] Erythrocyte distribution wid th (RBC) [Ratio]Ordered By: [facility] 06-07-2024 Erythrocyte distribution width (RBC) [Entitic vol] 46.5 fL High 35.1-43.9 [facility] Erythrocyte distribution wid th ratioOrdered By: [facility] 06-07-2024 Erythrocyte distribution width (RBC) [Ratio] 14.6 % 11.6-14.6 [facility] Estimation of creatinine melissa aranceOrdered By: [facility]24 Estimated Creatinine Clearance Calc 63.63 ml/min 50-250 [facility] GFR/1.73 sq M.predicted [place] g non-blacks MDRD (S/P/Bld) [Vol rate/Area]Ordered By: [facility] 06-07-2024 Estimated GFR (MDRD) Non-Af Amer 80 >60 [facility] Comment on above: mL/min/1.73m2 CKD-EP I Creatinine Equation (2020) Hematocrit Auto (Bld) [Volum e fraction]Ordered By: [facility] 06-07-2024 Hematocrit (Bld) [Volume fraction] 31.7 % Low 40-54 [facility] Hemoglobin measurementOrdere d By: [facility] 06-07-2024 Hemoglobin (Bld) [Mass/Vol] 10.3 g/dL Low 13.0-16.5 [facility] Immature granulocytes/100 WB C Auto (Bld)Ordered By: [facility] 06-07-2024 Immature granulocytes/100 WBC (Bld) 0.800 % 0.0-0.9 [facility] Comment on above: IG% - Immature Granu locytes (promyelocytes, myelocytes and metamyelocytes) > 1% indicates that a LEFT SHIFT is Present. Lymphocytes Auto (Unsp spec) [#/Vol]Ordered By: [facility] 06-07-2024 Lymphocytes (Bld) [#/Vol] 1.28 10*3/uL 0.83-4.51 [facility] Lymphocytes/100 WBC Auto (Un sp spec)Ordered By: [facility] 06-07-2024 Lymphocytes/100 WBC (Bld) 25.0 % 19-41 [facility] MCV (mean corpuscular volume ) determinationOrdered By: Fredis Moon on 06-07-2024 MCV (RBC) [Entitic vol] 86.8 fL 80-94 [facility] Mean corpuscular hemoglobin (MCH) determinationOrdered By: Fredis Moon on 06-07-2024 MCH (RBC) [Entitic mass] 28.2 pg 27.0-32.0 [facility] Mean corpuscular hemoglobin concentration (MCHC) determinationOrdered By: Fredis Moon on 06-07-2024 MCHC (RBC) [Mass/Vol] 32.5 g/dL 32-[address] [facility] Mean platelet volume determi nationOrdered By: Fredis Moon on 06-07-2024 Platelet mean volume (Bld) [Entitic vol] 9.6 fL 6.2-12.0 [facility] Monocyte percentageOrdered B y: Fredis Moon on 06-07-2024 Monocytes/100 WBC (Bld) 13.3 % High 0-10 [facility] Neutrophil percentageOrdered By: Fredis Moon on 06-07-2024 Neutrophils/100 WBC (Bld) 55.8 % 47-70 [facility] Nucleated red blood cell per centageOrdered By: Fredis Moon 06-07-2024 Nucleated RBC/100 WBC (Bld) [Ratio] 0 % 0-5 [facility] Platelet countOrdered By: Mir Moon on 06-07-2024 Platelets (Bld) [#/Vol] 169 10*3/uL 150-450 [facility] Potassium (Unsp spec) [Mass/ Vol]Ordered By: Fredis Moon on 06-07-2024 Potassium [Moles/Vol] 4.3 mmol/L 3.3-5.[address] [facility] RBC Auto (Bld) [#/Vol]Ordere d By: Fredis Moon on 06-07-2024 RBC (Bld) [#/Vol] 3.65 10*6/uL Low 4.6-6.2 [facility] Serum creatinine measurement (mass/volume)Ordered By: Fredis Moon on 06-07-2024 Creatinine [Mass/Vol] 0.95 mg/dL 0.70-1.[address] [facility] Serum glucose measurement (m ass/volume)Ordered By: Fredis Moon on 06-07-2024 Glucose [Mass/Vol] 157 mg/dL High 70-99 [facility] Serum or plasma calcium mt urement (mass/volume)Ordered By: Fredis Moon on 06-07-2024 Calcium [Mass/Vol] 8.6 mg/dL 7.6-11.0 [facility] Serum or plasma urea nitroge n measurement (mass/volume)Ordered By: Fredis Moon on 06-07-2024 Urea nitrogen [Mass/Vol] 20 mg/dL High 4-19 [facility] Sodium levelOrdered By: Fredis Moon on 06-07-2024 Sodium [Moles/Vol] 138 mmol/L 133-145 [facility] White blood cell (WBC) count Ordered By: Fredis Moon on 06-07-2024 WBC (Bld) [#/Vol] 5.1 10*3/uL 4.4-11.0 [facility] Basic Metabolic Profile (BMP )on 06-06-2024 BUN Normal -19 [facility] Comment on above: Result Comment: Canc elled via OM: Order Changed Performed By: #### L 100.0100, L500.2500 ####[facility] [address] [place], [address] BUN/CRE Normal 10-20 [facility] Comment on above: Result Comment: Canc elled via OM: Order Changed Performed By: #### L 100.0100, L500.2500 ####[facility] [address] [place], [address] Calcium Normal 7.6-11.0 [facility] Comment on above: Result Comment: Canc elled via OM: Order Changed Performed By: #### L 100.0100, L500.2500 ####[facility] [address] [place], [address] CL Normal 98-108 [facility] Comment on above: Result Comment: Canc elled via OM: Order Changed Performed By: #### L 100.0100, L500.2500 ####[facility] [address] [place], [address] CO2 Normal 21.0-32.0 [facility] Comment on above: Result Comment: Canc elled via OM: Order Changed Performed By: #### L 100.0100, L500.2500 ####[facility] [address] [place], [address] CREAT,SERUM Normal 0.70-1.20 [facility] Comment on above: Result Comment: Canc elled via OM: Order Changed Performed By: #### L 100.0100, L500.2500 ####[facility] [address] [place], [address] eGFR Normal >60 [facility] Comment on above: Result Comment: Canc elled via OM: Order Changed Performed By: #### L 100.0100, L500.2500 ####[facility] [address] [place], [address] GAP Normal 5-15 [facility] Comment on above: Result Comment: Canc elled via OM: Order Changed Performed By: #### L 100.0100, L500.2500 ####[facility] [address] [place], [address] GLU Normal 70-99 [facility] Comment on above: Result Comment: Canc elled via OM: Order Changed Performed By: #### L 100.0100, L500.2500 ####[facility] [address] [place], [address] Potassium Normal 3.3-5.1 [facility] Comment on above: Result Comment: Canc elled via OM: Order Changed Performed By: #### L 100.0100, L500.2500 ####[facility] [address] [place], [address] Basic Metabolic Profile (BMP) Normal 133-145 [facility] Comment on above: Result Comment: Canc elled via OM: Order Changed Performed By: #### L 100.0100, L500.2500 ####[facility] [address] [place], [address] Bedside Glucoseon 06-06-2024 FINGERSTICK GLU 175 mg/dL High 74-106 [facility] Comment on above: Result Comment: NIKI GEMENT OF PATIENT CARE PER NURSING PROTOCOL Performed By: #### L 501.080 ####[facility] [address] [place], [address] FINGERSTICK GLU 137 mg/dL High 74-106 [facility] Comment on above: Result Comment: NIKI GEMENT OF PATIENT CARE PER NURSING PROTOCOL Performed By: #### L 501.080 ####[facility] [address] [place], [address] FINGERSTICK GLU 156 mg/dL High 74-106 [facility] Comment on above: Result Comment: NIKI GEMENT OF PATIENT CARE PER NURSING PROTOCOL Performed By: #### L 501.080 ####[facility] [address] [place], [address] FINGERSTICK GLU 175 mg/dL High 74-106 [facility] Comment on above: Result Comment: NIKI GEMENT OF PATIENT CARE PER NURSING PROTOCOL Performed By: #### L 501.080 ####[facility] [address] [place], [address] CBC W/Diff, Automatedon 05-23 PATH REV Reviewed Normal [facility] Comment on above: Result Comment: SEE REPORT IN PATIENT'S EMR AMENDED REPORT 06/06/24 1507 PATH REV previously reported as: June indu Performed By: #### L 100.0100, L500.2500 ####[facility] [address] [place], [address] Absolute Neut Normal 2.0-7.7 [facility] Comment on above: Result Comment: Canc elled via OM: Order Changed Performed By: #### L 100.0100, L500.2500 ####[facility] [address] [place], [address] HCT Normal 40-54 [facility] Comment on above: Result Comment: Canc elled via OM: Order Changed Performed By: #### L 100.0100, L500.2500 ####[facility] [address] [place], [address] HGB Normal 13.0-16.5 [facility] Comment on above: Result Comment: Canc elled via OM: Order Changed Performed By: #### L 100.0100, L500.2500 ####[facility] [address] [place], [address] MCH Normal 27.0-32.0 [facility] Comment on above: Result Comment: Canc elled via OM: Order Changed Performed By: #### L 100.0100, L500.2500 ####[facility] [address] [place], [address] MCHC Normal 32-36 [facility] Comment on above: Result Comment: Canc elled via OM: Order Changed Performed By: #### L 100.0100, L500.2500 ####[facility] [address] [place], [address] MCV Normal 80-94 [facility] Comment on above: Result Comment: Canc elled via OM: Order Changed Performed By: #### L 100.0100, L500.2500 ####[facility] [address] [place], [address] NEUT% Normal 47-70 [facility] Comment on above: Result Comment: Canc elled via OM: Order Changed Performed By: #### L 100.0100, L500.2500 ####[facility] [address] [place], [address] PLT Normal 150-450 [facility] Comment on above: Result Comment: Canc elled via OM: Order Changed Performed By: #### L 100.0100, L500.2500 ####[facility] [address] [place], [address] RBC Normal 4.6-6.2 [facility] Comment on above: Result Comment: Canc elled via OM: Order Changed Performed By: #### L 100.0100, L500.2500 ####[facility] [address] [place], [address] RDW CV Normal 11.6-14.6 [facility] Comment on above: Result Comment: Canc elled via OM: Order Changed Performed By: #### L 100.0100, L500.2500 ####[facility] [address] [place], [address] RDW SD Normal 35.1-43.9 [facility] Comment on above: Result Comment: Canc elled via OM: Order Changed Performed By: #### L 100.0100, L500.2500 ####[facility] [address] [place], [address] WBC Normal 4.4-11.0 [facility] Comment on above: Result Comment: Canc elled via OM: Order Changed Performed By: #### L 100.0100, L500.2500 ####[facility] [address] [place], [address] Progress Noteon 06-06-2024 Progress Note 06/06/24 1104 BPCI Late Drop? Program late drop? No BPCI Outreach Assessment Selection Which outreach assessment are you completing? 21 Day BPCI - 21 Day Outreach Did patient answer phone call? Yes Have you noticed any negative changes in your condition? (Patient remains at rehab-[facility] with plans to get discharged home soon) Any questions about your condition you are unsure about that I can help clarify? Yes (Discussed rehab and progress made, important follow up appointments when home, surgery site, diabetes management) Normal [facility] Bedside Glucoseon 06-05-2024 FINGERSTICK GLU 176 mg/dL High 74-106 [facility] Comment on above: Result Comment: NIKI GEMENT OF PATIENT CARE PER NURSING PROTOCOL Performed By: #### L 501.080 ####[facility] [address] [place], [address] FINGERSTICK GLU 135 mg/dL High 74-106 [facility] Comment on above: Result Comment: NIKI GEMENT OF PATIENT CARE PER NURSING PROTOCOL Performed By: #### L 501.080 ####[facility] [address] [place], [address] FINGERSTICK GLU 205 mg/dL High -106 [facility] Comment on above: Result Comment: NIKI GEMENT OF PATIENT CARE PER NURSING PROTOCOL Performed By: #### L 501.080 ####[facility] [address] [place], [address] FINGERSTICK GLU 193 mg/dL High [facility]106 [facility] Comment on above: Result Comment: NIKI GEMENT OF PATIENT CARE PER NURSING PROTOCOL Performed By: #### L 501.080 ####[facility] [address] [place], [address] Venous duplex ultrasound rep ortOrdered By: Daysi Monterroso on 06-05-2024 US Vein [facility] [address] [place] [address] Venous Duplex US, Unilateral 06/02/24 1112 MR#: [id number] Acct: [id number] Name: THRASHERJoaquin NIMISHA Rep #:[id number] : 1940 84 From: Daysi Clayton [...] Date Dictated: 06/02/24 1112 Date Transcribed: 06/05/24746 Numerical Control Operator: Signed [facility] Work Phone: Bedside Glucoseon 06-04-2024 FINGERSTICK GLU 232 mg/dL High 74-106 [facility] Comment on above: Result Comment: NIKI GEMENT OF PATIENT CARE PER NURSING PROTOCOL Performed By: #### L 501.080 ####[facility] [address] [place], [address] FINGERSTICK GLU 149 mg/dL High 74-106 [facility] Comment on above: Result Comment: NIKI GEMENT OF PATIENT CARE PER NURSING PROTOCOL Performed By: #### L 501.080 ####[facility] [address] [place], [address] FINGERSTICK GLU 202 mg/dL High 74-106 [facility] Comment on above: Result Comment: NIKI GEMENT OF PATIENT CARE PER NURSING PROTOCOL Performed By: #### L 501.080 ####[facility] [address] [place], [address] FINGERSTICK GLU 174 mg/dL High -[address] [place] [address] Comment on above: Result Comment: NIKI GEMENT OF PATIENT CARE PER NURSING PROTOCOL Performed By: #### L 501.080 ####[facility] [address], [address] Bedside Glucoseon 06-03-2024 FINGERSTICK GLU 218 mg/dL High -[address] [place] [address] Comment on above: Result Comment: NIKI GEMENT OF PATIENT CARE PER NURSING PROTOCOL Performed By: #### L 501.080 ####[facility] [address], [address] FINGERSTICK GLU 160 mg/dL High -106 [facility] Comment on above: Result Comment: NIKI GEMENT OF PATIENT CARE PER NURSING PROTOCOL Performed By: #### L 501.080 ####[facility] [address], [address] FINGERSTICK GLU 159 mg/dL High -106 [facility] Comment on above: Result Comment: NIKI GEMENT OF PATIENT CARE PER NURSING PROTOCOL Performed By: #### L 501.080 ####[facility] [address] [place], [address] FINGERSTICK GLU 157 mg/dL High 74-106 [facility] Comment on above: Result Comment: NIKI GEMENT OF PATIENT CARE PER NURSING PROTOCOL Performed By: #### L 501.080 ####[facility] [address], [address] Bedside Glucoseon 06-02-2024 FINGERSTICK GLU 200 mg/dL High [address] [place] [address] Comment on above: Result Comment: NIKI GEMENT OF PATIENT CARE PER NURSING PROTOCOL Performed By: #### L 501.080 ####[facility] [address] [place], [address] FINGERSTICK GLU 165 mg/dL High [address] [place] [address] Comment on above: Result Comment: NIKI GEMENT OF PATIENT CARE PER NURSING PROTOCOL Performed By: #### L 501.080 ####[facility] [address] [place], [address] FINGERSTICK GLU 149 mg/dL High [address] [place] [address] Comment on above: Result Comment: NIKI GEMENT OF PATIENT CARE PER NURSING PROTOCOL Performed By: #### L 501.080 ####[facility] [address] [place], [address] FINGERSTICK GLU 173 mg/dL High [address] [place] [address] Comment on above: Result Comment: NIKI GEMENT OF PATIENT CARE PER NURSING PROTOCOL Performed By: #### L 501.080 ####[facility] [address] [place], [address] Venous Duplex US, Unilateral on 06-02-2024 Venous Duplex US, Unilateral Normal [facility] Bedside Glucoseon 06-01-2024 FINGERSTICK GLU 149 mg/dL High [address] [place] [address] Comment on above: Result Comment: NIKI GEMENT OF PATIENT CARE PER NURSING PROTOCOL Performed By: #### L 501.080 ####[facility] [address] [place], [address] FINGERSTICK GLU 125 mg/dL High [address] [place] [address] Comment on above: Result Comment: NIKI GEMENT OF PATIENT CARE PER NURSING PROTOCOL Performed By: #### L 501.080 ####[facility] [address] [place], [address] FINGERSTICK GLU 168 mg/dL High 74-106 [facility] Comment on above: Result Comment: NIKI GEMENT OF PATIENT CARE PER NURSING PROTOCOL Performed By: #### L 501.080 ####[facility] [address] [place], [address] FINGERSTICK GLU 130 mg/dL High 74-106 [facility] Comment on above: Result Comment: NIKI GEMENT OF PATIENT CARE PER NURSING PROTOCOL Performed By: #### L 501.080 ####[facility] [address] [place], [address] Basic Metabolic Profile (BMP )on 05-31-2024 BUN/CRE 19.0 RATIO Normal 10-20 [facility] Comment on above: Performed By: #### L 100.0100, L500.2500 ####[facility] [address] [place], [address] Calcium [Mass/Vol] 8.6 mg/dL Normal 7.6-11.0 [facility] Comment on above: Performed By: #### L 100.0100, L500.2500 ####[facility] [address] [place], [address] Chloride [Moles/Vol] 105 mmol/L Normal 98-108 [facility] Comment on above: Performed By: #### L 100.0100, L500.2500 ####[facility] [address] [place], [address] CO2 [Moles/Vol] 22.1 mmol/L Normal 21.0-32.0 [facility] Comment on above: Performed By: #### L 100.0100, L500.2500 ####[facility] [address] [place], [address] Creatinine [Mass/Vol] 1.04 mg/dL Normal 0.70-1.[address] [facility] Comment on above: Performed By: #### L 100.0100, L500.2500 ####[facility] [address] [place], [address] ECRCL 58.66 ml/min Normal 50-250 [facility] Comment on above: Performed By: #### L 100.0100, L500.2500 ####[facility] [address] [place], [address] GAP 11 Normal 5-15 [facility] Comment on above: Performed By: #### L 100.0100, L500.2500 ####[facility] [address] [place], [address] GFR/1.73 sq M.predicted among non-blacks MDRD (S/P/Bld) [Vol rate/Area] 72 mL/min/{1.73_m2} Normal >60 [facility] Comment on above: Result Comment: mL/m in/1.73m2 CKD-EPI Creatinine Equation (2020) Performed By: #### L 100.0100, L500.2500 ####[facility] [address] [place], [address] Glucose [Mass/Vol] 118 mg/dL High 70-99 [facility] Comment on above: Performed By: #### L 100.0100, L500.2500 ####[facility] [address] [place], [address] Potassium [Moles/Vol] 4.1 mmol/L Normal 3.3-5.[address] [facility] Comment on above: Performed By: #### L 100.0100, L500.2500 ####[facility] [address] [place], [address] Sodium [Moles/Vol] 138 mmol/L Normal 133-145 [facility] Comment on above: Performed By: #### L 100.0100, L500.2500 ####[facility] [address] [place], [address] Urea nitrogen [Mass/Vol] 20 mg/dL High 4-19 [facility] Comment on above: Performed By: #### L 100.0100, L500.2500 ####[facility] [address] [place], [address] Bedside Glucoseon 05-31-2024 FINGERSTICK GLU 141 mg/dL High 74-106 [facility] Comment on above: Result Comment: NIKI GEMENT OF PATIENT CARE PER NURSING PROTOCOL Performed By: #### L 501.080 ####[facility] [address] [place], [address] FINGERSTICK GLU 110 mg/dL High 74-106 [facility] Comment on above: Result Comment: NIKI GEMENT OF PATIENT CARE PER NURSING PROTOCOL Performed By: #### L 501.080 ####[facility] [address] [place], [address] FINGERSTICK GLU 180 mg/dL High 74-106 [facility] Comment on above: Result Comment: NIKI GEMENT OF PATIENT CARE PER NURSING PROTOCOL Performed By: #### L 501.080 ####[facility] [address] [place], [address] FINGERSTICK GLU 133 mg/dL High 74-106 [facility] Comment on above: Result Comment: NIKI GEMENT OF PATIENT CARE PER NURSING PROTOCOL Performed By: #### L 501.080 ####[facility] [address] [place], [address] CBC W/Diff, Automatedon 04-0 Absolute Lymph 1.25 X10 3/uL Normal 0.83-4.51 [facility] Comment on above: Performed By: #### L 100.0100 ####[facility] [address] [place], [address] Absolute Neut 2.5 X10 3/uL Normal 2.0-7.7 [facility] Comment on above: Performed By: #### L 100.0100 ####[facility] [address] [place], [address] Basophils/100 WBC (Bld) 0.9 % Normal 0-1 [facility] Comment on above: Performed By: #### L 100.0100 ####[facility] [address] [place], [address] Eosinophils/100 WBC (Bld) 3.7 % Normal 0-5 [facility] Comment on above: Performed By: #### L 100.0100 ####[facility] [address] [place], [address] Erythrocyte distribution width (RBC) [Ratio] 14.7 % High 11.6-14.6 [facility] Comment on above: Performed By: #### L 100.0100 ####[facility] [address] [place], [address] Hematocrit (Bld) [Volume fraction] 32.0 % Low 40-54 [facility] Comment on above: Performed By: #### L 100.0100 ####[facility] [address] [place], [address] Hemoglobin (Bld) [Mass/Vol] 10.0 g/dL Low 13.0-16.5 [facility] Comment on above: Performed By: #### L 100.0100 ####[facility] [address] [place], [address] IG% 0.900 Normal 0.0-0.9 [facility] Comment on above: Result Comment: IG% - Immature Granulocytes (promyelocytes, myelocytes andmetamyelocytes) > 1% indicates that a LEFT SHIFT is Present. Performed By: #### L 100.0100 ####[facility] [address] [place], [address] Lymphocytes/100 WBC (Bld) 27.1 % Normal 19-41 [facility] Comment on above: Performed By: #### L 100.0100 ####[facility] [address] [place], [address] MCH (RBC) [Entitic mass] 27.7 pg Normal 27.0-32.0 [facility] Comment on above: Performed By: #### L 100.0100 ####[facility] [address] [place], [address] MCHC (RBC) [Mass/Vol] 31.3 g/dL Low 32-[address] [facility] Comment on above: Performed By: #### L 100.0100 ####[facility] [address] [place], [address] MCV (RBC) [Entitic vol] 88.6 fL Normal 80-94 [facility] Comment on above: Performed By: #### L 100.0100 ####[facility] [address] [place], [address] Monocytes/100 WBC (Bld) 12.4 % High 0-10 [facility] Comment on above: Performed By: #### L 100.0100 ####[facility] [address] [place], [address] Neutrophils/100 WBC (Bld) 55.0 % Normal 47-70 [facility] Comment on above: Performed By: #### L 100.0100 ####[facility] [address] [place], [address] Nucleated RBC (Bld) [#/Vol] 0 10*3/uL Normal 0-5 [facility] Comment on above: Performed By: #### L 100.0100 ####[facility] [address] [place], [address] Platelet mean volume (Bld) [Entitic vol] 9.2 fL Normal 6.2-12.0 [facility] Comment on above: Performed By: #### L 100.0100 ####[facility] [address] [place], [address] Platelets (Bld) [#/Vol] 269 10*3/uL Normal 150-450 [facility] Comment on above: Performed By: #### L 100.0100 ####[facility] [address] [place], [address] RBC (Bld) [#/Vol] 3.61 10*6/uL Low 4.6-6.2 [facility] Comment on above: Performed By: #### L 100.0100 ####[facility] [address] [place], [address] RDW SD 47.5 fl High 35.1-43.9 [facility] Comment on above: Performed By: #### L 100.0100 ####[facility] [address] [place], [address] WBC (Bld) [#/Vol] 4.6 10*3/uL Normal 4.4-11.0 [facility] Comment on above: Performed By: #### L 100.0100 ####[facility] [address] [place], [address] Absolute Neut Normal 2.0-7.7 [facility] Comment on above: Result Comment: BARC ODE ERROR. REORDERED Performed By: #### L 100.0100, L500.2500 ####[facility] [address] [place], [address] HCT Normal 40-54 [facility] Comment on above: Result Comment: BARC ODE ERROR. REORDERED Performed By: #### L 100.0100, L500.2500 ####[facility] [address] [place], [address] HGB Normal 13.0-16.5 [facility] Comment on above: Result Comment: BARC ODE ERROR. REORDERED Performed By: #### L 100.0100, L500.2500 ####[facility] [address] [place], [address] MCH Normal 27.0-32.0 [facility] Comment on above: Result Comment: BARC ODE ERROR. REORDERED Performed By: #### L 100.0100, L500.2500 ####[facility] [address] [place], [address] MCHC Normal 32-36 [facility] Comment on above: Result Comment: BARC ODE ERROR. REORDERED Performed By: #### L 100.0100, L500.2500 ####[facility] [address] [place], [address] MCV Normal 80-94 [facility] Comment on above: Result Comment: BARC ODE ERROR. REORDERED Performed By: #### L 100.0100, L500.2500 ####[facility] [address] [place], [address] NEUT% Normal 47-70 [facility] Comment on above: Result Comment: BARC ODE ERROR. REORDERED Performed By: #### L 100.0100, L500.2500 ####[facility] [address] [place], [address] PLT Normal 150-450 [facility] Comment on above: Result Comment: BARC ODE ERROR. REORDERED Performed By: #### L 100.0100, L500.2500 ####[facility] [address] [place], [address] RBC Normal 4.6-6.2 [facility] Comment on above: Result Comment: BARC ODE ERROR. REORDERED Performed By: #### L 100.0100, L500.2500 ####[facility] [address] [place], [address] RDW CV Normal 11.6-14.6 [facility] Comment on above: Result Comment: BARC ODE ERROR. REORDERED Performed By: #### L 100.0100, L500.2500 ####[facility] [address] [place], [address] RDW SD Normal 35.1-43.9 [facility] Comment on above: Result Comment: BARC ODE ERROR. REORDERED Performed By: #### L 100.0100, L500.2500 ####[facility] [address] [place], [address] WBC Normal 4.4-11.0 [facility] Comment on above: Result Comment: BARC ODE ERROR. REORDERED Performed By: #### L 100.0100, L500.2500 ####[facility] [address] [place], [address] Basic Metabolic Profile (BMP )on 05-30-2024 BUN Normal 4-19 [facility] Comment on above: Result Comment: Canc elled via OM: Order Changed Performed By: #### L 500.2500, L100.0100 ####[facility] [address] [place], [address] BUN/CRE Normal 10-20 [facility] Comment on above: Result Comment: Canc elled via OM: Order Changed Performed By: #### L 500.2500, L100.0100 ####[facility] [address] [place], [address] Calcium Normal 7.6-11.0 [facility] Comment on above: Result Comment: Canc elled via OM: Order Changed Performed By: #### L 500.2500, L100.0100 ####[facility] [address] [place], [address] CL Normal 98-108 [facility] Comment on above: Result Comment: Canc elled via OM: Order Changed Performed By: #### L 500.2500, L100.0100 ####[facility] [address] [place], [address] CO2 Normal 21.0-32.0 [facility] Comment on above: Result Comment: Canc elled via OM: Order Changed Performed By: #### L 500.2500, L100.0100 ####[facility] [address] [place], [address] CREAT,SERUM Normal 0.70-1.20 [facility] Comment on above: Result Comment: Canc elled via OM: Order Changed Performed By: #### L 500.2500, L100.0100 ####[facility] [address] [place], [address] eGFR Normal >60 [facility] Comment on above: Result Comment: Canc elled via OM: Order Changed Performed By: #### L 500.2500, L100.0100 ####[facility] [address] [place], [address] GAP Normal 5-15 [facility] Comment on above: Result Comment: Canc elled via OM: Order Changed Performed By: #### L 500.2500, L100.0100 ####[facility] [address] [place], [address] GLU Normal 70-99 [facility] Comment on above: Result Comment: Canc elled via OM: Order Changed Performed By: #### L 500.2500, L100.0100 ####[facility] [address] [place], [address] Potassium Normal 3.3-5.1 [facility] Comment on above: Result Comment: Canc elled via OM: Order Changed Performed By: #### L 500.2500, L100.0100 ####[facility] [address] [place], [address] Basic Metabolic Profile (BMP) Normal 133-145 [facility] Comment on above: Result Comment: Canc elled via OM: Order Changed Performed By: #### L 500.2500, L100.0100 ####[facility] [address] [place], [address] Bedside Glucoseon 05-30-2024 FINGERSTICK GLU 157 mg/dL High 74-106 [facility] Comment on above: Result Comment: NIKI GEMENT OF PATIENT CARE PER NURSING PROTOCOL Performed By: #### L 501.080 ####[facility] [address] [place], [address] FINGERSTICK GLU 84 mg/dL Normal 74-106 [facility] Comment on above: Result Comment: NIKI GEMENT OF PATIENT CARE PER NURSING PROTOCOL Performed By: #### L 501.080 ####[facility] [address] [place], [address] FINGERSTICK GLU 123 mg/dL High 74-106 [facility] Comment on above: Result Comment: NIKI GEMENT OF PATIENT CARE PER NURSING PROTOCOL Performed By: #### L 501.080 ####[facility] [address] [place], [address] FINGERSTICK GLU 130 mg/dL High 74-106 [facility] Comment on above: Result Comment: NIKI GEMENT OF PATIENT CARE PER NURSING PROTOCOL Performed By: #### L 501.080 ####[facility] [address] [place], [address] CBC W/Diff, Automatedon 04-0 Absolute Neut Normal 2.0-7.7 [facility] Comment on above: Result Comment: Canc elled via OM: Order Changed Performed By: #### L 500.2500, L100.0100 ####[facility] [address] [place], [address] HCT Normal 40-54 [facility] Comment on above: Result Comment: Canc elled via OM: Order Changed Performed By: #### L 500.2500, L100.0100 ####[facility] [address] [place], [address] HGB Normal 13.0-16.5 [facility] Comment on above: Result Comment: Canc elled via OM: Order Changed Performed By: #### L 500.2500, L100.0100 ####[facility] [address] [place], [address] MCH Normal 27.0-32.0 [facility] Comment on above: Result Comment: Canc elled via OM: Order Changed Performed By: #### L 500.2500, L100.0100 ####[facility] [address] [place], [address] MCHC Normal 32-36 [facility] Comment on above: Result Comment: Canc elled via OM: Order Changed Performed By: #### L 500.2500, L100.0100 ####[facility] [address] [place], [address] MCV Normal 80-94 [facility] Comment on above: Result Comment: Canc elled via OM: Order Changed Performed By: #### L 500.2500, L100.0100 ####[facility] [address] [place], [address] NEUT% Normal 47-70 [facility] Comment on above: Result Comment: Canc elled via OM: Order Changed Performed By: #### L 500.2500, L100.0100 ####[facility] [address] [place], [address] PLT Normal 150-450 [facility] Comment on above: Result Comment: Canc elled via OM: Order Changed Performed By: #### L 500.2500, L100.0100 ####[facility] [address] [place], [address] RBC Normal 4.6-6.2 [facility] Comment on above: Result Comment: Canc elled via OM: Order Changed Performed By: #### L 500.2500, L100.0100 ####[facility] [address] [place], [address] RDW CV Normal 11.6-14.6 [facility] Comment on above: Result Comment: Canc elled via OM: Order Changed Performed By: #### L 500.2500, L100.0100 ####[facility] [address] [place], [address] RDW SD Normal 35.1-43.9 [facility] Comment on above: Result Comment: Canc elled via OM: Order Changed Performed By: #### L 500.2500, L100.0100 ####[facility] [address] [place], [address] WBC Normal 4.4-11.0 [facility] Comment on above: Result Comment: Canc elled via OM: Order Changed Performed By: #### L 500.2500, L100.0100 ####[facility] [address] [place], [address] Bedside Glucoseon 05-29-2024 FINGERSTICK GLU 146 mg/dL High 74-106 [facility] Comment on above: Result Comment: NIKI GEMENT OF PATIENT CARE PER NURSING PROTOCOL Performed By: #### L 501.080 ####[facility] [address] [place], [address] FINGERSTICK GLU 160 mg/dL High 74-106 [facility] Comment on above: Result Comment: NIKI GEMENT OF PATIENT CARE PER NURSING PROTOCOL Performed By: #### L 501.080 ####[facility] [address] [place], [address] FINGERSTICK GLU 159 mg/dL High 74-106 [facility] Comment on above: Result Comment: NIKI GEMENT OF PATIENT CARE PER NURSING PROTOCOL Performed By: #### L 501.080 ####[facility] [address] [place], [address] FINGERSTICK GLU 114 mg/dL High 74-106 [facility] Comment on above: Result Comment: NIKI GEMENT OF PATIENT CARE PER NURSING PROTOCOL Performed By: #### L 501.080 ####[facility] [address] [place], [address] Bedside Glucoseon 05-28-2024 FINGERSTICK GLU 146 mg/dL High 74-106 [facility] Comment on above: Result Comment: NIKI GEMENT OF PATIENT CARE PER NURSING PROTOCOL Performed By: #### L 501.080 ####[facility] [address] [place], [address] FINGERSTICK GLU 101 mg/dL Normal 74-106 [facility] Comment on above: Result Comment: NIKI GEMENT OF PATIENT CARE PER NURSING PROTOCOL Performed By: #### L 501.080 ####[facility] [address] [place], [address] FINGERSTICK GLU 103 mg/dL Normal 74-106 [facility] Comment on above: Result Comment: NIKI GEMENT OF PATIENT CARE PER NURSING PROTOCOL Performed By: #### L 501.080 ####[facility] [address] [place], [address] FINGERSTICK GLU 143 mg/dL High 74-106 [facility] Comment on above: Result Comment: NIKI GEMENT OF PATIENT CARE PER NURSING PROTOCOL Performed By: #### L 501.080 ####[facility] [address] [facility] [address] Bedside Glucoseon 05-27-2024 FINGERSTICK GLU 176 mg/dL High 74-106 [facility] Comment on above: Result Comment: NIKI GEMENT OF PATIENT CARE PER NURSING PROTOCOL Performed By: #### L 501.080 ####[facility] [address] [place], [address] FINGERSTICK GLU 98 mg/dL Normal 74-106 [facility] Comment on above: Result Comment: NIKI GEMENT OF PATIENT CARE PER NURSING PROTOCOL Performed By: #### L 501.080 ####[facility] [address] [place], [address] FINGERSTICK GLU 238 mg/dL High 74-106 [facility] Comment on above: Result Comment: NIKI GEMENT OF PATIENT CARE PER NURSING PROTOCOL Performed By: #### L 501.080 ####[facility] [address] [place], [address] FINGERSTICK GLU 106 mg/dL Normal 74-106 [facility] Comment on above: Result Comment: NIKI GEMENT OF PATIENT CARE PER NURSING PROTOCOL Performed By: #### L 501.080 ####[facility] [address] [place], [address] Calculated total iron bindin g capacityOrdered By: Fredis Moon on 05-27-2024 Total Iron Binding Capacity 258 ug/dL 250-450 [facility] Iron (Unsp spec) [Mass/Mass] Ordered By: Fredis Moon on 05-27-2024 Iron [Mass/Vol] 36 ug/dL Low 65-175 [facility] Iron measurement (mass/mass) Ordered By: Fredis Moon on 05-27-2024 Iron (Unsp spec) [Mass/Mass] 36 ug/dL Low 65-175 [facility] Iron saturation [Mass fracti on]Ordered By: Fredis Moon on 05-27-2024 Iron Saturation 14.0 % 9-55 [facility] Iron+Iron Binding Capacityon 05-27-2024 Iron [Mass/Vol] 36 ug/dL Low 65-175 [facility] Comment on above: Performed By: #### L 503.6030 ####[facility] [address] [place], [address] IRON SATURATION 14.0 Normal 9-55 [facility] Comment on above: Performed By: #### L 503.6030 ####[facility] [address] [place], [address] TIBC 258 ug/dL Normal 250-450 [facility] Comment on above: Performed By: #### L 503.6030 ####[facility] [address] [place], [address] UIBC 222 ug/dL Low 228-428 [facility] Comment on above: Performed By: #### L 503.6030 ####[facility] [address] [place], [address] No Panel InformationOrdered By: Fredis Moon on 05-27-2024 Unsaturated Iron Binding Capacity 222 ug/dL Low 228-428 [facility] Serum or plasma iron saturat ion measurement (mass fraction)Ordered By: Fredis Moon on 05-27-2024 Iron saturation [Mass fraction] 14.0 % 9-55 [facility] Bedside Glucoseon 05-26-2024 FINGERSTICK GLU 123 mg/dL High 74-106 [facility] Comment on above: Result Comment: NIKI GEMENT OF PATIENT CARE PER NURSING PROTOCOL Performed By: #### L 501.080 ####[facility] [address] [place], [address] FINGERSTICK GLU 132 mg/dL High 74-106 [facility] Comment on above: Result Comment: NIKI GEMENT OF PATIENT CARE PER NURSING PROTOCOL Performed By: #### L 501.080 ####[facility] [address] [place], [address] FINGERSTICK GLU 147 mg/dL High 74-106 [facility] Comment on above: Result Comment: NIKI GEMENT OF PATIENT CARE PER NURSING PROTOCOL Performed By: #### L 501.080 ####[facility] [address] [place], [address] FINGERSTICK GLU 126 mg/dL High 74-106 [facility] Comment on above: Result Comment: NIKI GEMENT OF PATIENT CARE PER NURSING PROTOCOL Performed By: #### L 501.080 ####[facility] [address] [place], [address] HH, Hemoglobin AND Hematocri ton 05-26-2024 Hematocrit (Bld) [Volume fraction] 31.0 % Low 40-54 [facility] Comment on above: Performed By: #### L 100.0600 ####[facility] [address] [place], [address] Hemoglobin (Bld) [Mass/Vol] 9.9 g/dL Low 13.0-16.5 [facility] Comment on above: Performed By: #### L 100.0600 ####[facility] [address] [place], [address] Bedside Glucoseon 05-25-2024 FINGERSTICK GLU 195 mg/dL High 74-106 [facility] Comment on above: Result Comment: NIKI GEMENT OF PATIENT CARE PER NURSING PROTOCOL Performed By: #### L 501.080 ####[facility] [address] [place], [address] FINGERSTICK GLU 119 mg/dL High 74-106 [facility] Comment on above: Result Comment: NIKI GEMENT OF PATIENT CARE PER NURSING PROTOCOL Performed By: #### L 501.080 ####[facility] [address] [place], [address] FINGERSTICK GLU 247 mg/dL High 74-106 [facility] Comment on above: Result Comment: NIKI GEMENT OF PATIENT CARE PER NURSING PROTOCOL Performed By: #### L 501.080 ####[facility] [address] [place], [address] FINGERSTICK GLU 172 mg/dL High 74-106 [facility] Comment on above: Result Comment: NIKI GEMENT OF PATIENT CARE PER NURSING PROTOCOL Performed By: #### L 501.080 ####[facility] [address] [place], [address] FINGERSTICK GLU 128 mg/dL High 74-106 [facility] Comment on above: Result Comment: NIKI GEMENT OF PATIENT CARE PER NURSING PROTOCOL Performed By: #### L 501.080 ####[facility] [address] [place], [address] Progress Noteon 05-25-2024 Progress Note [facility]: [facility] [employer] [facility] [address] [facility] [address] Dept: [phone] Dept Loc: [phone] Visit type: Established patient Reason for Visit: [...] and reasonable under the circumstances: Currently at [facility] . The patient has been advised of [...] stated that they are currently in the [facility]. If the patient is a minor, [...] GDMT for CABG. Able to discharge to [facility] on POD#06. 05/25/24: Spoke with patient and [...] chewable tablet (more content not included)... Normal [facility] Basic Metabolic Profile (BMP )on 05-24-2024 BUN/CRE 22.9 RATIO High 10-20 [facility] Comment on above: Performed By: #### L 500.2500, L100.0100 ####[facility] [address] [place], [address] Calcium [Mass/Vol] 8.9 mg/dL Normal 7.6-11.0 [facility] Comment on above: Performed By: #### L 500.2500, L100.0100 ####[facility] [address] [place], [address] Chloride [Moles/Vol] 104 mmol/L Normal 98-108 [facility] Comment on above: Performed By: #### L 500.2500, L100.0100 ####[facility] [address] [place], [address] CO2 [Moles/Vol] 24.5 mmol/L Normal 21.0-32.0 [facility] Comment on above: Performed By: #### L 500.2500, L100.0100 ####[facility] [address] [place], [address] Creatinine [Mass/Vol] 1.08 mg/dL Normal 0.70-1.[address] [facility] Comment on above: Performed By: #### L 500.2500, L100.0100 ####[facility] [address] [place], [address] ECRCL 57.34 ml/min Normal 50-250 [facility] Comment on above: Performed By: #### L 500.2500, L100.0100 ####[facility] [address] [place], [address] GAP 11 Normal 5-15 [facility] Comment on above: Performed By: #### L 500.2500, L100.0100 ####[facility] [address] [place], [address] GFR/1.73 sq M.predicted among non-blacks MDRD (S/P/Bld) [Vol rate/Area] 69 mL/min/{1.73_m2} Normal >60 [facility] Comment on above: Result Comment: mL/m in/1.73m2 CKD-EPI Creatinine Equation (2020) Performed By: #### L 500.2500, L100.0100 ####[facility] [address] [place], [address] Glucose [Mass/Vol] 142 mg/dL High 70-99 [facility] Comment on above: Performed By: #### L 500.2500, L100.0100 ####[facility] [address], [address] Potassium [Moles/Vol] 4.3 mmol/L Normal 3.3-5.[address] [facility] Comment on above: Performed By: #### L 500.2500, L100.0100 ####[facility] [address] [place], [address] Sodium [Moles/Vol] 140 mmol/L Normal 133-145 [facility] Comment on above: Performed By: #### L 500.2500, L100.0100 ####[facility] [address] [place], [address] Urea nitrogen [Mass/Vol] 25 mg/dL High 4-19 [facility] Comment on above: Performed By: #### L 500.2500, L100.0100 ####[facility] [address] [place], [address] Bedside Glucoseon 05-24-2024 FINGERSTICK GLU 197 mg/dL High 74-106 [facility] Comment on above: Result Comment: NIKI GEMENT OF PATIENT CARE PER NURSING PROTOCOL Performed By: #### L 501.080 ####[facility] [address] [place], [address] FINGERSTICK GLU 79 mg/dL Normal 74-106 [facility] Comment on above: Result Comment: NIKI GEMENT OF PATIENT CARE PER NURSING PROTOCOL Performed By: #### L 501.080 ####[facility] [address] [place], [address] FINGERSTICK GLU 61 mg/dL Low 74-106 [facility] Comment on above: Result Comment: NIKI GEMENT OF PATIENT CARE PER NURSING PROTOCOL Performed By: #### L 501.080 ####[facility] [address] [place], [address] FINGERSTICK GLU 149 mg/dL High 74-106 [facility] Comment on above: Result Comment: NIKI GEMENT OF PATIENT CARE PER NURSING PROTOCOL Performed By: #### L 501.080 ####[facility] [address] [place], [address] FINGERSTICK GLU 159 mg/dL High 74-106 [facility] Comment on above: Result Comment: NIKI GEMENT OF PATIENT CARE PER NURSING PROTOCOL Performed By: #### L 501.080 ####[facility] [address] [place], [address] FINGERSTICK GLU 104 mg/dL Normal 74-106 [facility] Comment on above: Result Comment: NIKI GEMENT OF PATIENT CARE PER NURSING PROTOCOL Performed By: #### L 501.080 ####[facility] [address] [place], [address] CBC W/Diff, Automatedon 04-0 2-2024 Absolute Lymph 0.97 X10 3/uL Normal 0.83-4.51 [facility] Comment on above: Performed By: #### L 500.2500, L100.0100 ####[facility] [address] [place], [address] Absolute Neut 4.3 X10 3/uL Normal 2.0-7.7 [facility] Comment on above: Performed By: #### L 500.2500, L100.0100 ####[facility] [address] [place], [address] Basophils/100 WBC (Bld) 1.0 % Normal 0-1 [facility] Comment on above: Performed By: #### L 500.2500, L100.0100 ####[facility] [address] [place], [address] Eosinophils/100 WBC (Bld) 2.7 % Normal 0-5 [facility] Comment on above: Performed By: #### L 500.2500, L100.0100 ####[facility] [address] [place], [address] Erythrocyte distribution width (RBC) [Ratio] 14.9 % High 11.6-14.6 [facility] Comment on above: Performed By: #### L 500.2500, L100.0100 ####[facility] [address] [place], [address] Hematocrit (Bld) [Volume fraction] 31.9 % Low 40-54 [facility] Comment on above: Performed By: #### L 500.2500, L100.0100 ####[facility] [address] [place], [address] Hemoglobin (Bld) [Mass/Vol] 9.8 g/dL Low 13.0-16.5 [facility] Comment on above: Performed By: #### L 500.2500, L100.0100 ####[facility] [address] [place], [address] IG% 1.600 High 0.0-0.9 [facility] Comment on above: Result Comment: IG% - Immature Granulocytes (promyelocytes, myelocytes andmetamyelocytes) > 1% indicates that a LEFT SHIFT is Present. Performed By: #### L 500.2500, L100.0100 ####[facility] [address] [place], [address] Lymphocytes/100 WBC (Bld) 15.4 % Low 19-41 [facility] Comment on above: Performed By: #### L 500.2500, L100.0100 ####[facility] [address] [place], [address] MCH (RBC) [Entitic mass] 27.5 pg Normal 27.0-32.0 [facility] Comment on above: Performed By: #### L 500.2500, L100.0100 ####[facility] [address] [place], [address] MCHC (RBC) [Mass/Vol] 30.7 g/dL Low 32-[address] [facility] Comment on above: Performed By: #### L 500.2500, L100.0100 ####[facility] [address], [address] MCV (RBC) [Entitic vol] 89.6 fL Normal 80-94 [facility] Comment on above: Performed By: #### L 500.2500, L100.0100 ####[facility] [address] [place], [address] Monocytes/100 WBC (Bld) 11.1 % High 0-10 [facility] Comment on above: Performed By: #### L 500.2500, L100.0100 ####[facility] [address] [place], [address] Neutrophils/100 WBC (Bld) 68.2 % Normal 47-70 [facility] Comment on above: Performed By: #### L 500.2500, L100.0100 ####[facility] [address] [place], [address] Nucleated RBC (Bld) [#/Vol] 0 10*3/uL Normal 0-5 [facility] Comment on above: Performed By: #### L 500.2500, L100.0100 ####[facility] [address] [place], [address] Platelet mean volume (Bld) [Entitic vol] 8.9 fL Normal 6.2-12.0 [facility] Comment on above: Performed By: #### L 500.2500, L100.0100 ####[facility] [address] [place], [address] Platelets (Bld) [#/Vol] 357 10*3/uL Normal 150-450 [facility] Comment on above: Performed By: #### L 500.2500, L100.0100 ####[facility] [address], [address] RBC (Bld) [#/Vol] 3.56 10*6/uL Low 4.6-6.2 [facility] Comment on above: Performed By: #### L 500.2500, L100.0100 ####[facility] [address] [place], [address] RDW SD 49.1 fl High 35.1-43.9 [facility] Comment on above: Performed By: #### L 500.2500, L100.0100 ####[facility] [address] [place], [address] WBC (Bld) [#/Vol] 6.3 10*3/uL Normal 4.4-11.0 [facility] Comment on above: Performed By: #### L 500.2500, L100.0100 ####[facility] [address] [place], [address] Bedside Glucoseon 05-23-2024 FINGERSTICK GLU 101 mg/dL Normal 74-106 [facility] Comment on above: Result Comment: NIKI GEMENT OF PATIENT CARE PER NURSING PROTOCOL Performed By: #### L 501.080 ####[facility] [address] [place], [address] FINGERSTICK GLU 177 mg/dL High 74-106 [facility] Comment on above: Result Comment: NIKI GEMENT OF PATIENT CARE PER NURSING PROTOCOL Performed By: #### L 501.080 ####[facility] [address] [place], [address] FINGERSTICK GLU 139 mg/dL High 74-106 [facility] Comment on above: Result Comment: NIKI GEMENT OF PATIENT CARE PER NURSING PROTOCOL Performed By: #### L 501.080 ####[facility] [address] [place], [address] Glucose measurement at [facility] deOrdered By: Fredis Moon on 05-23-2024 Bedside Glucose (Misc Panel) 139 mg/dL High 74-106 [facility] Comment on above: MANAGEMENT OF PATIEN T CARE PER NURSING PROTOCOL HH, Hemoglobin AND Hematocri ton 05-23-2024 Hematocrit (Bld) [Volume fraction] 30.6 % Low 40-54 [facility] Comment on above: Performed By: #### L 100.0600 ####[facility] [address] [place], [place], [phone] Hemoglobin (Bld) [Mass/Vol] 9.5 g/dL Low 13.0-16.5 [facility] Comment on above: Performed By: #### L 100.0600 ####[facility] [address] [place], [address] Hematocrit Auto (Bld) [Volum e fraction]Ordered By: Fredis Moon on 05-23-2024 Hematocrit (Bld) [Volume fraction] 30.6 % Low 40-54 [facility] Hemoglobin measurementOrdere d By: Fredis Moon on 05-23-2024 Hemoglobin (Bld) [Mass/Vol] 9.5 g/dL Low 13.0-16.5 [facility] Lower GI hemoglobin IA Ql (S tl)Ordered By: Fredis Moon on 05-23-2024 Stool Occult Blood (KERLINE) [facility] Stool Occult Blood iFOBon STOB Normal [facility] Comment on above: Performed By: #### M 100.7900 ####[facility] [address] [place], [place], [id number] Stool gastrointestinal hemog lobin detection by immunologic methodOrdered By: Fredis Moon on 05-23-2024 Lower GI hemoglobin IA Ql (Stl) [facility] Bedside Glucoseon 05-22-2024 FINGERSTICK GLU 135 mg/dL High [address] [place] [address] Comment on above: Result Comment: NIKI ROMERO OF PATIENT CARE PER NURSING PROTOCOL Performed By: #### L 501.080 ####[facility] [address] [place], [place], [phone] FINGERSTICK GLU 192 mg/dL High [address] [place] [address] Comment on above: Result Comment: NIKI GEMENT OF PATIENT CARE PER NURSING PROTOCOL Performed By: #### L 501.080 ####[facility] [address] [place], [address] FINGERSTICK GLU 98 mg/dL Normal 74-106 [facility] Comment on above: Result Comment: NIKI GEMENT OF PATIENT CARE PER NURSING PROTOCOL Performed By: #### L 501.080 ####[facility] [address] [place], [address] FINGERSTICK GLU 152 mg/dL High 74-106 [facility] Comment on above: Result Comment: NIKI GEMENT OF PATIENT CARE PER NURSING PROTOCOL Performed By: #### L 501.080 ####[facility] [address] [place], [address] Bedside Glucoseon 05-21-2024 FINGERSTICK GLU 151 mg/dL High 74-106 [facility] Comment on above: Result Comment: NIKI GEMENT OF PATIENT CARE PER NURSING PROTOCOL Performed By: #### L 501.080 ####[facility] [address] [place], [address] FINGERSTICK GLU 243 mg/dL High 74-106 [facility] Comment on above: Result Comment: NIKI GEMENT OF PATIENT CARE PER NURSING PROTOCOL Performed By: #### L 501.080 ####[facility] [address] [place], [address] FINGERSTICK GLU 270 mg/dL High 74-106 [facility] Comment on above: Result Comment: NIKI GEMENT OF PATIENT CARE PER NURSING PROTOCOL Performed By: #### L 501.080 ####[facility] [address] [place], [address] FINGERSTICK GLU 173 mg/dL High 74-106 [facility] Comment on above: Result Comment: NIKI GEMENT OF PATIENT CARE PER NURSING PROTOCOL Performed By: #### L 501.080 ####[facility] [address] [place], [address] Bedside Glucoseon 05-20-2024 FINGERSTICK GLU 179 mg/dL High 74-106 [facility] Comment on above: Result Comment: NIKI GEMENT OF PATIENT CARE PER NURSING PROTOCOL Performed By: #### L 501.080 ####[facility] [address] [place], [address] FINGERSTICK GLU 69 mg/dL Low 74-106 [facility] Comment on above: Result Comment: NIKI GEMENT OF PATIENT CARE PER NURSING PROTOCOL Performed By: #### L 501.080 ####[facility] [address] [place], [address] FINGERSTICK GLU 195 mg/dL High 74-106 [facility] Comment on above: Result Comment: NIKI GEMENT OF PATIENT CARE PER NURSING PROTOCOL Performed By: #### L 501.080 ####[facility] [address] [place], [address] FINGERSTICK GLU 130 mg/dL High 74-106 [facility] Comment on above: Result Comment: NIKI GEMENT OF PATIENT CARE PER NURSING PROTOCOL Performed By: #### L 501.080 ####[facility] [address] [place], [address] Bedside Glucoseon 05-19-2024 FINGERSTICK GLU 167 mg/dL High 74-106 [facility] Comment on above: Result Comment: NIKI GEMENT OF PATIENT CARE PER NURSING PROTOCOL Performed By: #### L 501.080 ####[facility] [address], [address] FINGERSTICK GLU 158 mg/dL High 74-106 [facility] Comment on above: Result Comment: NIKI GEMENT OF PATIENT CARE PER NURSING PROTOCOL Performed By: #### L 501.080 ####[facility] [address] [place], [address] FINGERSTICK GLU 178 mg/dL High 74-106 [facility] Comment on above: Result Comment: NIKI GEMENT OF PATIENT CARE PER NURSING PROTOCOL Performed By: #### L 501.080 ####[facility] [address] [place], [address] FINGERSTICK GLU 215 mg/dL High 74-106 [facility] Comment on above: Result Comment: NIKI GEMENT OF PATIENT CARE PER NURSING PROTOCOL Performed By: #### L 501.080 ####[facility] [address] [place], [address] Bedside Glucoseon 05-18-2024 FINGERSTICK GLU 87 mg/dL Normal -[address] [place] [address] Comment on above: Result Comment: NIKI GEMENT OF PATIENT CARE PER NURSING PROTOCOL Performed By: #### L 501.080 ####[facility] [address] [place], [address] FINGERSTICK GLU 79 mg/dL Normal 74-106 [facility] Comment on above: Result Comment: NIKI GEMENT OF PATIENT CARE PER NURSING PROTOCOL Performed By: #### L 501.080 ####[facility] [address] [place], [address] FINGERSTICK GLU 164 mg/dL High -106 [facility] Comment on above: Result Comment: NIKI GEMENT OF PATIENT CARE PER NURSING PROTOCOL Performed By: #### L 501.080 ####[facility] [address] [place], [address] FINGERSTICK GLU 231 mg/dL High -106 [facility] Comment on above: Result Comment: NIKI GEMENT OF PATIENT CARE PER NURSING PROTOCOL Performed By: #### L 501.080 ####[facility] [address] [place], [address] FINGERSTICK GLU 202 mg/dL High 74-106 [facility] Comment on above: Result Comment: NIKI GEMENT OF PATIENT CARE PER NURSING PROTOCOL Performed By: #### L 501.080 ####[facility] [address] [place], [place], [address] HH, Hemoglobin AND Hematocri ton 05-18-2024 Hematocrit (Bld) [Volume fraction] 29.5 % Low 40-54 [facility] Comment on above: Order Comment: 24 HO URS POST TRANSFUSION Performed By: #### L 100.0600 ####[facility] [address] [place], [address] Hemoglobin (Bld) [Mass/Vol] 9.9 g/dL Low 13.0-16.5 [facility] Comment on above: Order Comment: 24 HO URS POST TRANSFUSION Performed By: #### L 100.0600 ####[facility] [address] [place], [address] Venous Duplex US - Andrew Extre mon 05-18-2024 Venous Duplex US - Andrew Extrem Normal [facility] Venous duplex ultrasound rep ortOrdered By: Daysi Monterroso on 05-18-2024 US Vein [facility] [address] [place] [address] Venous Duplex US - Andrew Extrem 05/18/24 1013 MR#: [id number] Acct: [id number] Name: Joaquin THRASHER Rep #:[id number] 3 : 1940 84 From: Daysi Clayton [...] appears patent and compressible segmentally. Ordering Physician: Ferdis Moon Chi Referring Physician: Fredis Moon Chi Performed By: Td Walsh, T 05/18/24 181 Date _ Daysi Monterroso MD CC: Dr. Fredis Moon MD ~ Date Dictated: 05/18/24 1013 Date Transcribed: 05/18/241810 Numerical Control Operator: Signed [facility] Work Phone: [phone] 05-17-2024 [id number] Patient Choice Patient Name: FARHNAA THRASHER Date of : 1940 Normal [facility] Absolute neutrophil countOrd ered By: Fredis Moon on 05-17-2024 Neutrophils (Bld) [#/Vol] 6.9 10*3/uL 2.0-7.7 [facility] Anion gap in Serum or Plasma Ordered By: Fredis Moon on 05-17-2024 Anion gap [Moles/Vol] 12 mmol/L 5-[address] [facility] BRCon 05-17-2024 RC Normal [facility] Comment on above: Result Comment: [id number] OP RC TRANSFUSED 05/17/24 [id number] OP RC TRANSFUSED 05/17/24 1042 Performed By: #### B TS, [facility] ####[facility] [address] [place], [address] BUN/creatinine ratioOrdered By: Fredis Moon on 05-17-2024 Urea nitrogen/Creatinine [Mass ratio] 23.7 mg/mg High 10-20 [facility] Basic Metabolic Profile (BMP )on 05-17-2024 BUN/CRE 23.7 RATIO High 10-20 [facility] Comment on above: Performed By: #### L 100.0100, L500.2500 ####[facility] [address] [place], [address] Calcium [Mass/Vol] 8.7 mg/dL Normal 7.6-11.0 [facility] Comment on above: Performed By: #### L 100.0100, L500.2500 ####[facility] [address] [place], [address] Chloride [Moles/Vol] 103 mmol/L Normal 98-108 [facility] Comment on above: Performed By: #### L 100.0100, L500.2500 ####[facility] [address] [place], [address] CO2 [Moles/Vol] 23.3 mmol/L Normal 21.0-32.0 [facility] Comment on above: Performed By: #### L 100.0100, L500.2500 ####[facility] [address] [place], [address] Creatinine [Mass/Vol] 1.10 mg/dL Normal 0.70-1.[address] [facility] Comment on above: Performed By: #### L 100.0100, L500.2500 ####[facility] [address] [place], [address] ECRCL 56.65 ml/min Normal 50-250 [facility] Comment on above: Performed By: #### L 100.0100, L500.2500 ####[facility] [address] [place], [address] GAP 12 Normal 5-15 [facility] Comment on above: Performed By: #### L 100.0100, L500.2500 ####[facility] [address] [place], [address] GFR/1.73 sq M.predicted among non-blacks MDRD (S/P/Bld) [Vol rate/Area] 67 mL/min/{1.73_m2} Normal >60 [facility] Comment on above: Result Comment: mL/m in/1.73m2 CKD-EPI Creatinine Equation (2020) Performed By: #### L 100.0100, L500.2500 ####[facility] [address] [place], [address] Glucose [Mass/Vol] 262 mg/dL High 70-99 [facility] Comment on above: Performed By: #### L 100.0100, L500.2500 ####[facility] [address] [place], [address] Potassium [Moles/Vol] 4.1 mmol/L Normal 3.3-5.[address] [facility] Comment on above: Performed By: #### L 100.0100, L500.2500 ####[facility] [address] [place], [address] Sodium [Moles/Vol] 138 mmol/L Normal 133-145 [facility] Comment on above: Performed By: #### L 100.0100, L500.2500 ####[facility] [address] [place], [address] Urea nitrogen [Mass/Vol] 26 mg/dL High 4-19 [facility] Comment on above: Performed By: #### L 100.0100, L500.2500 ####[facility] [address] [place], [address] Bedside Glucoseon 05-17-2024 FINGERSTICK GLU 205 mg/dL High 74-106 [facility] Comment on above: Result Comment: NIKI GEMENT OF PATIENT CARE PER NURSING PROTOCOL Performed By: #### L 501.080 ####[facility] [address] [place], [address] FINGERSTICK GLU 351 mg/dL High 74-106 [facility] Comment on above: Result Comment: NIKI GEMENT OF PATIENT CARE PER NURSING PROTOCOL Performed By: #### L 501.080 ####[facility] [address] [place], [address] FINGERSTICK GLU 291 mg/dL High -106 [facility] Comment on above: Result Comment: NIKI GEMENT OF PATIENT CARE PER NURSING PROTOCOL Performed By: #### L 501.080 ####[facility] [address] [place], [address] FINGERSTICK GLU 225 mg/dL High 74-106 [facility] Comment on above: Result Comment: NIKI GEMENT OF PATIENT CARE PER NURSING PROTOCOL Performed By: #### L 501.080 ####[facility] [address] [place], [address] Blood band neutrophil count as percentage of total leukocytesOrdered By: Fredis Moon on 05-17-2024 Band form neutrophils/100 WBC (Bld) 1 % 0-5 [facility] Blood basophils/100 leukocyt esOrdered By: Fredis Red on 05-17-2024 Basophils/100 WBC (Bld) 1 % 0-1 [facility] Blood eosinophils/100 leukoc ytesOrdered By: on 05-17-2024 Eosinophils/100 WBC (Bld) 0 % 0-5 [facility] Blood lymphocytes/100 leukoc ytesOrdered By: Fredis Perryok on 05-17-2024 Lymphocytes/100 WBC (Bld) 8 % Low 19-41 [facility] Blood metamyelocytes/100 carl kocytesOrdered By: on 05-17-2024 Metamyelocytes/100 WBC (Bld) 2 % High 0-1 [facility] Blood monocytes/100 leukocyt esOrdered By: Fredis Red on 05-17-2024 Monocytes/100 WBC (Bld) 10 % 0-10 [facility] Blood polychromasia detectio n by light microscopyOrdered By: Fredis Perryok on 05-17-2024 Polychromasia LM Ql (Bld) 1+ [facility] Blood segmented neutrophils/ 100 leukocytesOrdered By: Fredis Red on 05-17-2024 Segmented neutrophils/100 WBC (Bld) 78 % High 47-70 [facility] Carbon dioxide, total [Moles /volume] in Central venous bloodOrdered By: Fredis Moon on 05-17-2024 CO2 [Moles/Vol] 23.3 mmol/L 21.0-32.0 [facility] Cells counted Molgen (Bld/Ti ss) [#]Ordered By: Fredis Moon on 05-17-2024 Differential Total Cells Counted 100 MANUAL DIFF [facility] Chloride assayOrdered By: Mir Moon on 05-17-2024 Chloride [Moles/Vol] 103 mmol/L 98-108 [facility] Erythrocyte distribution wid th ratioOrdered By: Fredis Moon on 05-17-2024 Erythrocyte distribution width (RBC) [Ratio] 14.9 % High 11.6-14.6 [facility] Erythrocyte distribution wid th standard deviationOrdered By: Fredis Moon on 05-17-2024 Erythrocyte distribution width (RBC) [Entitic vol] 47.3 fL High 35.1-43.9 [facility] Estimation of creatinine melissa aranceOrdered By: Fredis Moon on 05-17-2024 Estimated Creatinine Clearance Calc 56.65 ml/min 50-250 [facility] GFR/1.73 sq M.predicted [place] g non-blacks MDRD (S/P/Bld) [Vol rate/Area]Ordered By: Fredis Moon on 05-17-2024 Estimated GFR (MDRD) Non-Af Amer 67 >60 [facility] Comment on above: mL/min/1.73m2 CKD-EP I Creatinine Equation (2020) Lymphocytes Auto (Unsp spec) [#/Vol]Ordered By: Fredis Moon on 05-17-2024 Lymphocytes (Bld) [#/Vol] 0.69 10*3/uL Low 0.83-4.51 [facility] MCV (mean corpuscular volume ) determinationOrdered By: Fredis Moon on 05-17-2024 MCV (RBC) [Entitic vol] 87.6 fL 80-94 [facility] Mean corpuscular hemoglobin (MCH) determinationOrdered By: Fredis Moon on 05-17-2024 MCH (RBC) [Entitic mass] 27.4 pg 27.0-32.0 [facility] Mean corpuscular hemoglobin concentration (MCHC) determinationOrdered By: Fredis Moon on 05-17-2024 MCHC (RBC) [Mass/Vol] 31.3 g/dL Low 32-[address] [facility] Mean platelet volume determi nationOrdered By: Fredis Moon on 05-17-2024 Platelet mean volume (Bld) [Entitic vol] 9.3 fL 6.2-12.0 [facility] Neutrophil percentageOrdered By: Fredis Moon on 05-17-2024 Neutrophils (%) (Auto) Not Reportable [facility] Pathologist review Jones (Unsp spec) [Interp]Ordered By: Fredis Moon on 05-17-2024 Differential Pathologist's Review June indu [facility] Differential Pathologist's Review Reviewed [facility] Comment on above: Previous reported re sult: Ana Lilia griggs Edited by: ATLAF on 06/06/24:1507SEE REPORT IN PATIENT'S EMR AMENDED REPORT 06/06/24 1507 PATH REV previously reported as: Ana Lilia griggs Platelet countOrdered By: Mir Moon on 05-17-2024 Platelets (Bld) [#/Vol] 278 10*3/uL 150-450 [facility] Platelet estimateOrdered By: Fredis Moon on 05-17-2024 Platelets LM Ql (Bld) A ADEQ [facility] Platelets LM Ql (Bld)Ordered By: Fredis Moon on 05-17-2024 Platelet Estimate A ADEQ [facility] Polychromasia LM Ql (Bld)Ord ered By: Fredis Moon on 05-17-2024 Polychromasia 1+ [facility] Potassium (Unsp spec) [Mass/ Vol]Ordered By: Fredis Moon on 05-17-2024 Potassium [Moles/Vol] 4.1 mmol/L 3.3-5.[address] [facility] RBC Auto (Bld) [#/Vol]Ordere d By: Fredis Moon on 05-17-2024 RBC (Bld) [#/Vol] 2.59 10*6/uL Low 4.6-6.2 [facility] Review by pathologistOrdered By: Fredis Moon on 05-17-2024 Pathologist review Jones (Unsp spec) [Interp] Reviewed [facility] Comment on above: Previous reported re sult: Ana Lilia griggs Edited by: ALTAF on 06/06/24:1507SEE REPORT IN PATIENT'S EMR AMENDED REPORT 06/06/24 1507 PATH REV previously reported as: Ana Lilia griggs Segmented neutrophils/100 WB C (Bld)Ordered By: Fredis Moon on 05-17-2024 Neutrophils/100 WBC (Bld) 78 % High 47-70 [facility] Serum creatinine measurement (mass/volume)Ordered By: Fredis Moon on 05-17-2024 Creatinine [Mass/Vol] 1.10 mg/dL 0.70-1.[address] [facility] Serum glucose measurement (m ass/volume)Ordered By: Fredis Moon on 05-17-2024 Glucose [Mass/Vol] 262 mg/dL High 70-99 [facility] Serum or plasma calcium mt urement (mass/volume)Ordered By: Fredis Moon on 05-17-2024 Calcium [Mass/Vol] 8.7 mg/dL 7.6-11.0 [facility] Serum or plasma urea nitroge n measurement (mass/volume)Ordered By: Fredis Moon on 05-17-2024 Urea nitrogen [Mass/Vol] 26 mg/dL High 4-19 [facility] Sodium levelOrdered By: Fredis Perryok on 05-17-2024 Sodium [Moles/Vol] 138 mmol/L 133-145 [facility] Total cell countOrdered By: Fredis Red on 05-17-2024 Cells counted Molgen (Bld/Tiss) [#] 100 MANUAL DIFF [facility] Type AND Screenon 05-17-2024 Ab SCREEN GEL PENDING Normal [facility] Comment on above: Order Comment: CMV N EG? NNumber of units to transfuse: 2Reason for Ordering Blood: AcuteAre the blood/blood products to be transfused? YIs the patient having/had surgery? YWhen ReadyNY Performed By: #### B ELIN, [facility] ####[facility] [address] [place], [place], [id number] ABO and Rh group Nom (Bld) Blood group O Rh(D) positive Normal [facility] Comment on above: Order Comment: CMV N EG? NNumber of units to transfuse: 2Reason for Ordering Blood: AcuteAre the blood/blood products to be transfused? YIs the patient having/had surgery? YWhen ReadyNY Performed By: #### B ELIN, [facility] ####[facility] [address] [place], [place], [id number] White blood cell (WBC) count Ordered By: Fredis Red on 05-17-2024 WBC (Bld) [#/Vol] 8.7 10*3/uL 4.4-11.0 [facility] 30on 05-16-2024 30 Problem: Knowledge Deficit Goal: [...] will remain free of falls Outcome: Progressing [facility] [phone] 05-16-2024 [phone] Next Site of Care Admission Date: 05/10/2024 05:34 AM Patient Name: FARHANA THRASHER Location: [address] [id number] A Date of : 1940 ------- Placement Information ------- [facility]erral Type:[facility] Referral ID:[id number] Provider Name:[facility] Address 1:[address] Address 2: City:[place] Selection Factors:Patient/Famil y Choice State:[facility] [phone] Received call from Licha at [facility] that they are able to accept patient. Requested discharge order, completed LAURA and transportation be set up. [facility] [phone] SW [facility] TCC, RN, Facility, Mechanical Tech, Pt and Pt's spouse notified. [facility] BASIC METABOLIC PANELon 03- Anion gap [Moles/Vol] 8 mmol/L Normal 3-13 [facility] Comment on above: Performed By: #### L AB103, LAB15 ####Food Cart Attendant: DANIELLA PEREZ ([phone])[facility])[address] [place] [address] Calcium [Mass/Vol] 8.9 mg/dL Normal 8.8-10.0 [facility] Comment on above: Performed By: #### L AB103, LAB15 ####Food Cart Attendant: DANIELLA PEREZ ([phone])[facility])[address] [place] [address] [place] Chloride [Moles/Vol] 105 mmol/L Normal 98-107 [facility] Comment on above: Performed By: #### L AB103, LAB15 ####Food Cart Attendant: DANIELLA PEREZ ([phone])[facility])[address] [place] [address] [place] CO2 [Moles/Vol] 25 mmol/L Normal 23-31 [facility] Comment on above: Performed By: #### L AB103, LAB15 ####Food Cart Attendant: DANIELLA PEREZ ([phone])[facility])[address] [place] [address] Creatinine [Mass/Vol] 1.04 mg/dL Normal 0.72-1.25 [facility] Comment on above: Performed By: #### L AB103, LAB15 ####Food Cart Attendant: DANIELLA PEREZ ([phone])[facility])[address] [place] [address] GLOMERULAR FILTRATION RATE ML/MIN/1.73 SQ M.PREDICTED 71.7 mL/min/1.73m*2 Normal >60.0 [facility] Comment on above: Result Comment: Calc ulation based on the Chronic Kidney Disease Epidemiology Collaboration (CKD-EPI) equation refit without adjustment for race Performed By: #### L 103, LAB15 ####Food Cart Attendant: DANIELLA PEREZ ([phone])[facility])[address] [place] [address] Glucose [Mass/Vol] 206 mg/dL High 82-115 [facility] Comment on above: Performed By: #### L 103, LAB15 ####Food Cart Attendant: DANIELLA PEREZ ([phone])[address] Potassium [Moles/Vol] 3.9 mmol/L Normal 3.5-5.1 [facility] Comment on above: Result Comment: [facility] potassium values may be up to 0.5 mmol/L lower than serum values. Performed By: #### L 103, LAB15 ####Food Cart Attendant: DANIELLA PEREZ ([phone])[facility])[address] [place] [address] Sodium [Moles/Vol] 138 mmol/L Normal 136-145 [facility] Comment on above: Performed By: #### L AB103, LAB15 ####Food Cart Attendant: DANIELLA PEREZ ([phone])[facility])[address] [place] [address] [place] Urea nitrogen [Mass/Vol] 27 mg/dL High 9-23 [facility] Comment on above: Performed By: #### L AB103, LAB15 ####Food Cart Attendant: DANIELLA PEREZ ([phone])[facility])[address] [place] [address] Basic metabolic 1998 panelon 05-16-2024 Anion gap [Moles/Vol] 8 mmol/L 3 - 13 mmol/L [facility] Calcium [Mass/Vol] 8.9 mg/dL 8.8 - 10. 0 mg/dL [facility] Chloride [Moles/Vol] 105 mmol/L 98 - 10 7 mmol/L [facility] CO2 [Moles/Vol] 25 mmol/L 23 - 31 mmol/L [facility] Creatinine [Mass/Vol] 1.04 mg/dL 0.72 - 1.25 mg/dL [facility] GFR/1.73 sq M.predicted (S/P/Bld) [Vol rate/Area] 71.7 mL/min - PINF [facility] Glucose [Mass/Vol] 206 mg/dL High 82 - 115 mg/dL [facility] Interpretation and review of laboratory results Abnormal [facility] Potassium [Moles/Vol] 3.9 mmol/L 3.5 - 5.1 mmol/L [facility] Sodium [Moles/Vol] 138 mmol/L 136 - 145 mmol/L [facility] Urea nitrogen [Mass/Vol] 27 mg/dL High 9 - 23 mg/dL [facility] Bedside Glucoseon 05-16-2024 FINGERSTICK GLU 260 mg/dL High 74-106 [facility] Comment on above: Result Comment: NIKI BOYERENT OF PATIENT CARE PER NURSING PROTOCOL Performed By: #### L 501.080 ####[facility] [address] [place], [place], [id number] CBC (HEMOGRAM)on 05-16-2024 Erythrocyte distribution width (RBC) [Ratio] 14.7 % Normal 11.5-15.0 [facility] Comment on above: Performed By: #### L AB294 ####Food Cart Attendant: DANIELLA PEREZ ([phone])[facility] ([facility])[address] [place] [address] Hematocrit (Bld) [Volume fraction] 23.7 % Low 40.0-52.0 [facility] Comment on above: Performed By: #### L AB294 ####Food Cart Attendant: DANIELLA PEREZ ([phone])[facility] [place] [address] Hemoglobin (Bld) [Mass/Vol] 7.4 g/dL Low 13.0-18.0 [facility] Comment on above: Performed By: #### L AB294 ####Food Cart Attendant: DANIELLA PEREZ ([phone])[facility])[address] [place] [address] MCH (RBC) [Entitic mass] 27.6 pg Normal 26.0-34.0 [facility] Comment on above: Performed By: #### L AB294 ####Food Cart Attendant: DANIELLA PEREZ ([phone])[facility])[address] [place] [address] MCHC 31.2 % Normal 30.5-36.0 [facility] Comment on above: Performed By: #### L AB294 ####Food Cart Attendant: DANIELLA PEREZ ([phone])[facility])[address] [place] [address] MCV (RBC) [Entitic vol] 88.4 fL Normal 77.0-99.0 [facility] Comment on above: Performed By: #### L AB294 ####Food Cart Attendant: DANIELLA PEREZ ([phone])[facility])[address] [place] [address] Platelet mean volume (Bld) [Entitic vol] 9.4 fL Normal 9.0-12.7 [facility] Comment on above: Performed By: #### L AB294 ####Food Cart Attendant: DANIELLA PEREZ ([phone])[facility])[address] [place] [address] Platelets (Bld) [#/Vol] 274 10*3/uL Normal 140-440 [facility] Comment on above: Performed By: #### L AB294 ####Food Cart Attendant: DANIELLA PEREZ ([phone])[facility])[address] [place] [address] RBC (Bld) [#/Vol] 2.68 10*6/uL Low 4.40-5.90 [facility] Comment on above: Performed By: #### L AB294 ####Food Cart Attendant: DANIELLA PEREZ ([id number])[facility] ([facility])[address] [place] [address] WBC (Bld) [#/Vol] 8.7 10*3/uL Normal 3.6-10.7 [facility] Comment on above: Performed By: #### L AB294 ####Food Cart Attendant: DANIELLA PEREZ ([phone])[facility] ([facility])[address] [place] [address] CBC panel Auto (Bld)on 05-16 Erythrocyte distribution width (RBC) [Ratio] 14.7 % 11.5 - 15.0 % [facility] Hematocrit (Bld) [Volume fraction] 23.7 % Low 40.0 - 52.0 % [facility] Hemoglobin (Bld) [Mass/Vol] 7.4 g/dL Low 13.0 - 18.0 g/dL [facility] Interpretation and review of laboratory results Abnormal [facility] MCH (RBC) [Entitic mass] 27.6 pg 26. 0 - 34.0 pg [facility] MCHC (RBC) [Mass/Vol] 31.2 % 30.5 - 36.0 % [facility] MCV (RBC) [Entitic vol] 88.4 fL 77.0 - 99.0 fL [facility] Platelet mean volume (Bld) [Entitic vol] 9.4 fL 9.0 - 12.7 fL [facility] Platelets (Bld) [#/Vol] 274 10*3/uL 140 - 440 10*3/uL [facility] RBC (Bld) [#/Vol] 2.68 10*6/uL Low 4.40 - 5.9 0 10*6/uL [facility] WBC (Bld) [#/Vol] 8.7 10*3/uL 3.6 - 10.7 10*3/uL [facility] Laboratory - Chemistry and C hemistry - challengeon 05-16-2024 Glucose [Mass/Vol] 224 mg/dL High 70 - 100 mg/dL [facility] Magnesium [Mass/Vol] 2.2 mg/dL 1.6 - 2 .6 mg/dL [facility] MAGNESIUMon 03-25-2025 Magnesium [Mass/Vol] 2.2 mg/dL Normal 1.6-2.6 [facility] Comment on above: Result Comment: JEAN CARLOS R COMMENTS: Higher values can be expected in females during menses. Performed By: #### L AB103, LAB15 ####Food Cart Attendant: DANIELLA PEREZ ([phone])[facility] ([facility])[address] [place] [address] Magnesium [Mass/Vol]on 05-16 Interpretation and review of laboratory results Normal [facility] No Panel Informationon 05-16 Interpretation and review of laboratory results Abnormal [facility] Nursing Noteon 05-16-2024 Nursing Note Report called to Danny Dailey. [facility] Progress Noteon 05-16-2024 Progress Note [...] tolerated well. Will continue to monitor. [facility] Progress Note PHYSICAL THERAPY [facility] Treatment Note Name/MRN: Nimisha Thrasher ([id number]) Date of : 1940 Age: 84 y.o. [...] Minutes (tp; gait) Abi Rios PTA [facility] Progress Note Department of Internal Medicine Division of Endocrinology, Diabetes, & Metabolism Endocrinology Note Patient Name: Farhana Thrasher : 1940 AGE: 84 y.o. Room/Bed: T1-116/T1116 A Admission Date: 05/10/2024 Visit Date: 05/16/2024 Reason for Endocrine Consult: post op heart Provider/Team Requesting Consult: CTS PCP: KELSEY MOON MD Outpt Turkey Boner: No ASSESSMENT: DM2 with hyperglycemia and retirement [...] Rx Recommendations-- Continue lantus and humalog to [facility] rehab Once dc to home resume- Soliqua [...] Units, SubCUTAneous, (more content not included)... Normal [facility] XR CHEST 1 VIEWon 05-16-2024 XR CHEST 1 VIEW Patient Name: FARHANA THRASHER : [address] [facility]#: [id number] Exam Date/Time: 05/16/2024 05:22 Procedure: XR CHEST [...] Signed Date/Time: 05/16/2024 5:34 AM EDT Normal [facility] XR Chest Single viewon 05-[address] [facility] Radiology Study observation (narrative) [facility] BASIC METABOLIC PANELon 04-23 Anion gap [Moles/Vol] 8 mmol/L Normal 3-13 [facility] Comment on above: Performed By: #### L AB15, [id number] ####Food Cart Attendant: DANIELLA PEREZ ([phone])[address] Calcium [Mass/Vol] 8.9 mg/dL Normal 8.8-10.0 [facility] Comment on above: Performed By: #### L AB15, [id number] ####Food Cart Attendant: DANIELLA PEREZ ([phone])[facility] ([facility])[address] [place] [address] Chloride [Moles/Vol] 108 mmol/L High 98-107 [facility] Comment on above: Performed By: #### L AB15, [id number] ####Food Cart Attendant: DANIELLA PEREZ ([id number])[facility])[address] [place] [address] CO2 [Moles/Vol] 24 mmol/L Normal 23-31 [facility] Comment on above: Performed By: #### L AB15, [id number] ####Food Cart Attendant: DANIELLA PEREZ ([phone])[facility])[address] [place] [address] Creatinine [Mass/Vol] 0.97 mg/dL Normal 0.72-1.25 [facility] Comment on above: Performed By: #### L AB15, [id number] ####Food Cart Attendant: DANIELLA PEREZ ([phone])[facility])[address] [place] [address] GLOMERULAR FILTRATION RATE ML/MIN/1.73 SQ M.PREDICTED 77.9 mL/min/1.73m*2 Normal >60.0 [facility] Comment on above: Result Comment: Calc ulation based on the Chronic Kidney Disease Epidemiology Collaboration (CKD-EPI) equation refit without adjustment for race Performed By: #### L AB15, [id number] ####Food Cart Attendant: DANIELLA PEREZ ([phone])[facility])[address] [place] [address] Glucose [Mass/Vol] 189 mg/dL High 82-115 [facility] Comment on above: Performed By: #### L AB15, [id number] ####Food Cart Attendant: DANIELLA PEREZ ([phone])[facility])[address] [place] [address] Potassium [Moles/Vol] 3.8 mmol/L Normal 3.5-5.1 [facility] Comment on above: Result Comment: [facility] potassium values may be up to 0.5 mmol/L lower than serum values. Performed By: #### L AB15, [id number] ####Food Cart Attendant: DANIELLA PEREZ ([phone])[facility] ([facility])[address] [place] [address] Sodium [Moles/Vol] 140 mmol/L Normal 136-145 [facility] Comment on above: Performed By: #### L AB15, [id number] ####Food Cart Attendant: DANIELLA PEREZ ([id number])[facility] ([facility])[address] [place] [address] Urea nitrogen [Mass/Vol] 25 mg/dL High 9-23 [facility] Comment on above: Performed By: #### L AB15, [id number] ####Food Cart Attendant: DANIELLA PEREZ ([phone])[facility])[address] [place] [address] Basic metabolic 1998 panelon 05-15-2024 Anion gap [Moles/Vol] 8 mmol/L 3 - 13 mmol/L [facility] Calcium [Mass/Vol] 8.9 mg/dL 8.8 - 10. 0 mg/dL [facility] Chloride [Moles/Vol] 108 mmol/L High 98 - 10 7 mmol/L [facility] CO2 [Moles/Vol] 24 mmol/L 23 - 31 mmol/L [facility] Creatinine [Mass/Vol] 0.97 mg/dL 0.72 - 1.25 mg/dL [facility] GFR/1.73 sq M.predicted (S/P/Bld) [Vol rate/Area] 77.9 mL/min - PINF [facility] Glucose [Mass/Vol] 189 mg/dL High 82 - 115 mg/dL [facility] Interpretation and review of laboratory results Abnormal [facility] Potassium [Moles/Vol] 3.8 mmol/L 3.5 - 5.1 mmol/L [facility] Sodium [Moles/Vol] 140 mmol/L 136 - 145 mmol/L [facility] Urea nitrogen [Mass/Vol] 25 mg/dL High 9 - 23 mg/dL [facility] CBC (HEMOGRAM)on 05-15-2024 Erythrocyte distribution width (RBC) [Ratio] 14.6 % Normal 11.5-15.0 [facility] Comment on above: Performed By: #### L AB294 ####Food Cart Attendant: DANIELLA PEREZ ([phone])[facility] ([facility])[address] [place] [address] Hematocrit (Bld) [Volume fraction] 23.4 % Low 40.0-52.0 [facility] Comment on above: Performed By: #### L AB294 ####Food Cart Attendant: DANIELLA PEREZ ([id number])[facility] ([facility])[address] [place] [address] Hemoglobin (Bld) [Mass/Vol] 7.3 g/dL Low 13.0-18.0 [facility] Comment on above: Performed By: #### L AB294 ####Food Cart Attendant: DANIELLA PEREZ ([phone])[facility])[address] [place] [address] MCH (RBC) [Entitic mass] 27.1 pg Normal 26.0-34.0 [facility] Comment on above: Performed By: #### L AB294 ####Food Cart Attendant: DANIELLA PEREZ ([id number])[facility] ([facility])[address] [place] [address] MCHC 31.2 % Normal 30.5-36.0 [facility] Comment on above: Performed By: #### L AB294 ####Food Cart Attendant: DANIELLA PEREZ ([phone])[facility])[address] [place] [address] MCV (RBC) [Entitic vol] 87.0 fL Normal 77.0-99.0 [facility] Comment on above: Performed By: #### L AB294 ####Food Cart Attendant: DANIELLA PEREZ ([phone])[facility])[address] [place] [address] Platelet mean volume (Bld) [Entitic vol] 9.2 fL Normal 9.0-12.7 [facility] Comment on above: Performed By: #### L AB294 ####Food Cart Attendant: DANIELLA PEREZ ([id number])[facility])[address] [place] [address] Platelets (Bld) [#/Vol] 218 10*3/uL Normal 140-440 [facility] Comment on above: Performed By: #### L AB294 ####Food Cart Attendant: DANIELLA PEREZ ([phone])[facility])[address] [place] [address] RBC (Bld) [#/Vol] 2.69 10*6/uL Low 4.40-5.90 [facility] Comment on above: Performed By: #### L [id number] ####Food Cart Attendant: DANIELLA PEREZ ([phone])[address] WBC (Bld) [#/Vol] 7.5 10*3/uL Normal 3.6-10.7 [facility] Comment on above: Performed By: #### L AB294 ####Food Cart Attendant: DANIELLA PEREZ ([phone])[facility])[address] [place] [address] CBC panel Auto (Bld)on 05-15 Erythrocyte distribution width (RBC) [Ratio] 14.6 % 11.5 - 15.0 % [facility] Hematocrit (Bld) [Volume fraction] 23.4 % Low 40.0 - 52.0 % [facility] Hemoglobin (Bld) [Mass/Vol] 7.3 g/dL Low 13.0 - 18.0 g/dL [facility] Interpretation and review of laboratory results Abnormal [facility] MCH (RBC) [Entitic mass] 27.1 pg 26. 0 - 34.0 pg [facility] MCHC (RBC) [Mass/Vol] 31.2 % 30.5 - 36.0 % [facility] MCV (RBC) [Entitic vol] 87 fL 77.0 - 99.0 fL [facility] Platelet mean volume (Bld) [Entitic vol] 9.2 fL 9.0 - 12.7 fL [facility] Platelets (Bld) [#/Vol] 218 10*3/uL 140 - 440 10*3/uL [facility] RBC (Bld) [#/Vol] 2.69 10*6/uL Low 4.40 - 5.9 0 10*6/uL [facility] WBC (Bld) [#/Vol] 7.5 10*3/uL 3.6 - 10.7 10*3/uL [facility] ECG 12-LEADon 05-15-2024 ECG 12-LEAD IMPRESSION: SINUS RHYTHM Incomplete RBBB and LAFB Nonspecific T abnormalities, lateral leads Electronically Signed On 05-15-2024 13:14:24 EDT by Holden Bowles Normal [facility] Laboratory - Chemistry and C hemistry - challengeon 05-15-2024 Glucose [Mass/Vol] 266 mg/dL High 70 - 100 mg/dL [facility] Glucose [Mass/Vol] 167 mg/dL High 70 - 100 mg/dL [facility] Glucose [Mass/Vol] 208 mg/dL High 70 - 100 mg/dL [facility] Glucose [Mass/Vol] 244 mg/dL High 70 - 100 mg/dL [facility] Magnesium [Mass/Vol] 2.2 mg/dL 1.6 - 2 .6 mg/dL [facility] Glucose [Mass/Vol] 197 mg/dL High 70 - 100 mg/dL [facility] MAGNESIUMon 05-15-2024 Magnesium [Mass/Vol] 2.2 mg/dL Normal 1.6-2.6 [facility] Comment on above: Result Comment: JEAN CARLOS Nuñez COMMENTS: Higher values can be expected in females during menses. Performed By: #### L AB15, [id number] ####Food Cart Attendant: DANIELLA PEREZ ([phone])[facility] ([address] Magnesium [Mass/Vol]on 05-15 Interpretation and review of laboratory results Normal [facility] No Panel Informationon 05-15 Interpretation and review of laboratory results Abnormal [facility] Interpretation and review of laboratory results Abnormal [facility] CV EPIPHANY [facility] Interpretation and review of laboratory results Abnormal [facility] Interpretation and review of laboratory results Abnormal [facility] Interpretation and review of laboratory results Abnormal [facility] No Panel InformationOrdered By: Holden Bowles on 05-15-2024 P [place] 154 degrees [facility] Work Phone: [phone] MS Interval 170 ms [facility] Work Phone: QRS [place] -44 degrees [facility] Work Phone: QRSD Interval 118 ms [facility] [employer] Work Phone: QT Interval 391 ms [facility] Work Phone: QTC Interval 461 ms [facility] Work Phone: T Wave [place] 64 degrees [facility] Work Phone: [facility] Work Phone: [phone] Progress Noteon 05-15-2024 Progress Note PHYSICAL THERAPY [facility] Treatment Note Name/MRN: Nimisha Thrasher ([id number]) Date of : 1940 Age: 84 y.o. [...] Minutes (tp; gait) Abi Rios PTA Normal [facility] Progress Note - Attestation signed by Catalina [...] Consult: CTS PCP: KELSEY MOON MD Outpt Turkey Boner: No ASSESSMENT: DM2 with hyperglycemia and retirement [...] and Rhy (more content not included)... Normal [place] Vital signsOrdered By: Nicole Bowles on 05-15-2024 Heart rate 84 /min bpm [employer] Work Phone: XR CHEST 1 VIEWon 05-15-2024 [...] Signed Date/Time: 05/15/2024 5:53 AM EDT Normal [facility] XR Chest Single viewon 05-15 [facility] Radiology Study observation (narrative) [facility] XR Chest Single viewOrdered By: Lina Adler on 05-15-2024 [facility] Work Phone: 30on 05-14-2024 30 [...] Nutritional Intake Outcome: Adequate for Discharge Normal [facility] BASIC METABOLIC PANELon 04-23 Anion gap [Moles/Vol] 8 mmol/L Normal - [facility] Comment on above: Performed By: #### L AB103, LAB15 ####Food Cart Attendant: DANIELLA PEREZ ([phone])[address] Calcium [Mass/Vol] 8.7 mg/dL Low 8.8-10.0 [facility] Comment on above: Performed By: #### L AB103, LAB15 ####Food Cart Attendant: DANIELLA PEREZ ([phone])[facility] ([facility])[address] [place] [address] [place] Chloride [Moles/Vol] 107 mmol/L Normal 98-107 [facility] Comment on above: Performed By: #### L AB103, LAB15 ####Food Cart Attendant: DANIELLA PEREZ ([phone])[facility] ([facility])[address] [place] [address] CO2 [Moles/Vol] 23 mmol/L Normal 23-31 [facility] Comment on above: Performed By: #### L AB103, LAB15 ####Food Cart Attendant: DANIELLA PEREZ ([phone])[facility])[address] [place] [address] Creatinine [Mass/Vol] 1.10 mg/dL Normal 0.72-1.25 [facility] Comment on above: Performed By: #### L AB103, LAB15 ####Food Cart Attendant: DANIELLA PEREZ ([phone])[facility] ([facility])[address] [place] [address] GLOMERULAR FILTRATION RATE ML/MIN/1.73 SQ M.PREDICTED 67.0 mL/min/1.73m*2 Normal >60.0 [facility] Comment on above: Result Comment: Calc ulation based on the Chronic Kidney Disease Epidemiology Collaboration (CKD-EPI) equation refit without adjustment for race Performed By: #### L AB103, LAB15 ####Food Cart Attendant: DANIELLA PEREZ ([phone])[facility] ([facility])[address] [place] [address] Glucose [Mass/Vol] 196 mg/dL High 82-115 [facility] Comment on above: Performed By: #### L AB103, LAB15 ####Food Cart Attendant: DANIELLA PEREZ ([phone])[facility])[address] [place] [address] Potassium [Moles/Vol] 3.8 mmol/L Normal 3.5-5.1 [facility] Comment on above: Result Comment: [facility] potassium values may be up to 0.5 mmol/L lower than serum values. Performed By: #### L AB103, LAB15 ####Food Cart Attendant: DANIELLA PEREZ ([phone])[facility])[address] [place] [address] Sodium [Moles/Vol] 138 mmol/L Normal 136-145 [facility] Comment on above: Performed By: #### L AB103, LAB15 ####Food Cart Attendant: DANIELLA PEREZ ([phone])[facility])[address] [place] [address] Urea nitrogen [Mass/Vol] 30 mg/dL High 9-23 [facility] Comment on above: Performed By: #### L AB103, LAB15 ####Food Cart Attendant: DANIELLA PEREZ ([phone])[address] Basic metabolic 1998 panelon 05-14-2024 Anion gap [Moles/Vol] 8 mmol/L 3 - 13 mmol/L [facility] Calcium [Mass/Vol] 8.7 mg/dL Low 8.8 - 10. 0 mg/dL [facility] Chloride [Moles/Vol] 107 mmol/L 98 - 10 7 mmol/L [facility] CO2 [Moles/Vol] 23 mmol/L 23 - 31 mmol/L [facility] Creatinine [Mass/Vol] 1.1 mg/dL 0.72 - 1.25 mg/dL [facility] GFR/1.73 sq M.predicted (S/P/Bld) [Vol rate/Area] 67 mL/min - PINF [facility] Glucose [Mass/Vol] 196 mg/dL High 82 - 115 mg/dL [facility] Interpretation and review of laboratory results Abnormal [facility] Potassium [Moles/Vol] 3.8 mmol/L 3.5 - 5.1 mmol/L [facility] Sodium [Moles/Vol] 138 mmol/L 136 - 145 mmol/L [facility] Urea nitrogen [Mass/Vol] 30 mg/dL High 9 - 23 mg/dL [facility] CBC (HEMOGRAM)on 05-14-2024 Erythrocyte distribution width (RBC) [Ratio] 14.6 % Normal 11.5-15.0 [facility] Comment on above: Performed By: #### L AB294 ####Food Cart Attendant: DANIELLA PEREZ ([id number])[facility])[address] [place] [address] Hematocrit (Bld) [Volume fraction] 23.7 % Low 40.0-52.0 [facility] Comment on above: Performed By: #### L AB294 ####Food Cart Attendant: DANIELLA PEREZ ([phone])[facility])[address] [place] [address] Hemoglobin (Bld) [Mass/Vol] 7.6 g/dL Low 13.0-18.0 [facility] Comment on above: Performed By: #### L AB294 ####Food Cart Attendant: DANIELLA PEREZ ([phone])[facility])[address] [place] [address] MCH (RBC) [Entitic mass] 27.5 pg Normal 26.0-34.0 [facility] Comment on above: Performed By: #### L AB294 ####Food Cart Attendant: DANIELLA PEREZ ([phone])[facility])[address] [place] [address] MCHC 32.1 % Normal 30.5-36.0 [facility] Comment on above: Performed By: #### L AB294 ####Food Cart Attendant: DANIELLA PEREZ ([phone])[facility])[address] [place] [address] MCV (RBC) [Entitic vol] 85.9 fL Normal 77.0-99.0 [facility] Comment on above: Performed By: #### L [id number] ####Food Cart Attendant: DANIELLA PEREZ ([phone])[facility])[address] [place] [address] Platelet mean volume (Bld) [Entitic vol] 9.7 fL Normal 9.0-12.7 [facility] Comment on above: Performed By: #### L [id number] ####Food Cart Attendant: DANIELLA PEREZ ([phone])[facility])[address] [place] [address] Platelets (Bld) [#/Vol] 179 10*3/uL Normal 140-440 [facility] Comment on above: Performed By: #### L [id number] ####Food Cart Attendant: DANIELLA PEREZ ([phone])[facility])[address] [place] [address] RBC (Bld) [#/Vol] 2.76 10*6/uL Low 4.40-5.90 [facility] Comment on above: Performed By: #### L [id number] ####Food Cart Attendant: DANIELLA PEREZ ([phone])[address] WBC (Bld) [#/Vol] 8.5 10*3/uL Normal 3.6-10.7 [facility] Comment on above: Performed By: #### L [id number] ####Food Cart Attendant: DANIELLA PEREZ ([phone])[facility])[address] [place] [address] CBC panel Auto (Bld)on 05-14 Erythrocyte distribution width (RBC) [Ratio] 14.6 % 11.5 - 15.0 % [facility] Hematocrit (Bld) [Volume fraction] 23.7 % Low 40.0 - 52.0 % [facility] Hemoglobin (Bld) [Mass/Vol] 7.6 g/dL Low 13.0 - 18.0 g/dL [facility] Interpretation and review of laboratory results Abnormal [facility] MCH (RBC) [Entitic mass] 27.5 pg 26. 0 - 34.0 pg [facility] MCHC (RBC) [Mass/Vol] 32.1 % 30.5 - 36.0 % [facility] MCV (RBC) [Entitic vol] 85.9 fL 77.0 - 99.0 fL [facility] Platelet mean volume (Bld) [Entitic vol] 9.7 fL 9.0 - 12.7 fL [facility] Platelets (Bld) [#/Vol] 179 10*3/uL 140 - 440 10*3/uL [facility] RBC (Bld) [#/Vol] 2.76 10*6/uL Low 4.40 - 5.9 0 10*6/uL [facility] WBC (Bld) [#/Vol] 8.5 10*3/uL 3.6 - 10.7 10*3/uL [facility] Laboratory - Chemistry and C hemistry - challengeon 05-14-2024 Glucose [Mass/Vol] 150 mg/dL High 70 - 100 mg/dL [facility] Glucose [Mass/Vol] 356 mg/dL High 70 - 100 mg/dL [facility] Glucose [Mass/Vol] 225 mg/dL High 70 - 100 mg/dL [facility] Magnesium [Mass/Vol] 2.3 mg/dL 1.6 - 2 .6 mg/dL [facility] MAGNESIUMon 05-14-2024 Magnesium [Mass/Vol] 2.3 mg/dL Normal 1.6-2.6 [facility] Comment on above: Result Comment: JEAN CARLOS Nuñez COMMENTS: Higher values can be expected in females during menses. Performed By: #### L AB103, [id number] ####Food Cart Attendant: DANIELLA PEREZ ([id number])[facility] ([address] Magnesium [Mass/Vol]on 05-14 Interpretation and review of laboratory results Normal [facility] No Panel InformationOrdered By: Daniella Perez on 05-14-2024 Case Report [facility] Work Phone: Clinical Information s5adkVTeHYNekLUzUOy wN wvrewOgDZVxxYOqT2Zbbt kcNJgwVN5tHI8yyMeglNA ryQWvEXGeKgQqr7pwt134 mLUqb7utDGGTINfzVKMWF Ry1kVmjL31ko9H8BaxgS3 xyZWQwXGdyZWVuMFxibHV eDGl3GCVvfOTfwqDrExXd VBJgqYNkdYY1SAJgDD6st jjsDXjpVWyqENZxptE7WT ZlgOKoA1SiZRQqFD5oazb bTRP7SMydKRVyAHX6OxEo ZVWac3Rszdd9DoUwvGMpW FxwbGFpblxmczIwXGNmMS SLCNNbGLQwgo0nXMG6PID ydGVyeSBkaXNlYXNlKVxj ZjAgIFxwYXJ9 [facility] Work Phone: Disclaimer i4kxpWKuRZFeaUPoGiCz M KMmUMVrc9rkIYDzfBXgSr EwMzNcZnRuYmpcdWMxXGR tSvKtq0fin714hPOlf0lw WOFxPoA4sDNfHKPxX55tT SYZO175AXDeUJnbw6tbi7 JsKIXszHEze4V0CTXSJZv dJSIGCNm1uRhmV35cb7Z2 XxukI1ryFOVgREXzF0KsR X4tCSIrTbq5CGB0NQT4IJ CzGQPxG1YnDE0jOUGnaCK nCOi9n5ppkTrjQGOwZHC4 x2ssQPeaoaFhRO8kfp0tw Ep1g0diwxBbSFZnRMIsyX KIZUViF4VfvIncOo8vlRg 1gXupYiqjRMZ2Jub9YD1j ce41tmz8uBdxZVXkeaaoX qW1YIabUITsbbmcTVq9LA oiDYYoaCD2PMPjuQQyH3N vLBVyRP7dmxp7WRJ5AXwq EJQeAzP1BGVcxMSbXKVff WsdYJtnb525NRF6DbLdJL 5uV2Jjp4B5zW7sqLAcYPJ urNYrDuEfNGCcsr5icBFc GIlia3JtJHU8joA2wMCck SPmIRFeEY36Ddbga9DxPu ifGQS7ZHIlokKev3Nvf8k vCqNbtzFtX9fcH8OlJHNp JYBlIWFuOzHzagMwa4Mfi 9KucONyfKg7r3sxHROiNG FlsEzyv9tlMMM7CJBxD5L 7vNOzi4vgKXwcPAEqrPX5 qgT2XCVmaUCyI8SdyA3fQ VItHI1dslk7a6ebYMC7AD wgFTErVnU5oiC1ELQydBD jMFMdfDvcUWllt167JCT3 IaWeFGDso5ZyM1EpaTwvR 21zuFufD82eNNBzpEhhtN 3lmEailI2tIeSsEgGcSYh xbFxwbGFpblxmMVxmczE2 JRnhopuoKQYtDUdjY9idA cNsXOSkxSxrUHbab0SfOO IxZKWqFUScLPqlO2xbiA9 qlohuGZmcLNVprVrqx5tg WiBjtXW3RJ1cydKgITMzo XetspV9xuXoaClekA5fpG 1kuBhxiL2ieWYpiGP8tdx sIGluIHNpdHUgaHlicmlk kIgstZqcmkkonY7iPWW6a ZZwLGI9uYSkBCEeWZPsJN MppO94zk1ydRXrksLmK0C zP2NjjILyeQgiSlvgaMZn vISeZu0iyOIfWT5cICTsp FEzD4UvAW9aOCWztylmFH IgVGhlIHVzZSBvZiBvbmU mf5BpaG2oVULrHXOrFQ37 xmYftkH8mAItEZTchoLnr GVzdHMgaXMgcmVndWxhdG ViWYPjYUIxCBReYVs3qJC mh5UjA1wzsKTomvPxW9Kl pCMdIPKOAT7iOMiit5Ewy ORevXFst8TaIZQxEARwgT 9yDLBnXC0tIUMkRWcuLKP gjcWmir1vjiOtEIUeUJDt G4FhtmeckNhsykHeHGFid w7tjmOuFCU5GGUfFXAqnD bqiKCxjGCxVAVopiN8e8G xXRCqj1LeF6NmkEGeYGGh jZYyGAU0t7KsnX1cMRsah ABbVOVbYW3gjLGtFOTaBT NsZWFyZWQgYnkgdGhlIFV OTADuc9HaBP2lDECqgRqw SLWojE1lb8ZdCAHih36vX EZEQSkuIFRoZSBGREEgaG FzIGRldGVybWluZWQgdGh meYDpzWFbUVMeNFQnOL6y VZRnlfDazATxh7GopHQey wTbj8SzybKtYBAzUGI1Vo BccGFyXHBhciBBbGwgaW1 bvR8mz8XolA6sQMedelVu qLWkMq9kgKXnFA6rNEJde mFmZmluIGVtYmVkZGVkIH Nlr8O2SC0gIJJtse6nqlt aeAPezV7myZRptsVrDC2e KL9pC0U6zGJtHEXbvdLxg 3mvQMm8fRZeRSPfqLUxpD ArKccxOPR0LFTmASH4gfV tyqGmZOOqaWguzQX2aHVr FZEfBZMcDBWtUS95K7Lte 0JnC6arZU87BEIzRDJgQD CglhAmm1chNBGhx2lhNIT bcTMyN4AsTWCtvOCteoll JyFwDNN2OOTwRGD4hPYkK IFvN7JogFYfkBIonK58LS 2ycTX3LE7aHRU6AZutkK2 ePaITkL52dk5tmHJ0g9Et BS4tO2BoVOIoy2J7tmLzI GTbCU8ipOMgHWOpXPFnyS lkYXRlZCBvbiBkZWNhbGN uDkgoQOX4mHSykRCtFuTL JSO9dKXgAMXrp9VpTZXiO GAgmyLhmkHbYVKeEDJ8aX TxWKRsoACjp72rK3c4ID4 mgKtaQWFutRViZMUik5Ns rZHplUj6aQRsKoNbDIngX RHmQBhbmHo8nYF1FY8eOR LxX1CaB4twyPEbLMWsHUH ckSYqdw5jgYAluC== [facility] Work Phone: Gross Description v7tuxPPuSSTqpNIfFAdf N skaxkUdPPKvmVYtE3Nlcq aeIFbqRL1kUF4ftTggeSE agZRuLQFfEjLjq5zci186 lROcg9qnOMOWAFfgOYARL Yx7qYwjU82qt0N4OdgvV3 2ebUCyUVP3TZIzGTLmoND aQILxDYF3THFhbMLlK6cx LBUiSM5dydsyGTaqUPufQ KThcQR6XLVmkJByY9NvXG HvSQvtTDMrpiu6BfIhGp8 vdGVyeTcyMFxwYXJkXHBs ONwpUADwGsKkYiJwKJh3Z YHdaH6jIk7keSQfsQ3ocS PyWMyrHAArLH2iXVT7LXY yT7DxcIdspakzrMCjD69e v44ltsqkHSF5NSP8CkYvy gBziBqkNRT1xSziVZNuY2 QqJTPmulDnt85cGA5wHZu nzMtoll24uWo6QYBxTKlv rYIqBMTqm11ewPD3uKDmu WUgdGhhdCBtZWFzdXJlID ImXzC4GPNtYNJmaQyzx7u 2lZFckuLwm9SxuMjyKFLs ZHMgYmVpbmcgYmlmdXJjY VBeAZTabcImuNbeNT08lC MxDC9vUVW2yhWsOKBfGqY 4HQLwIIWtoN0gRQEgXWHf nIGrqZ9auqCdsdTcAAI1V ZwpuWMfzWGhrgRyJH56qP RcoEsna8KmiUk1lUCfXZv vMX7fETUoITMlFQM7YG7e XHBhcn0= [facility] Work Phone: Pathologist Interpretation Location [facility], [address] [place] [address], [facility] [address], CLIA: [id number]; Joint Commission: HCO [id number]; CAP: [id number] [facility] Work Phone: Pathology report final diagnosis Narrative j6yxcIVbORFewTIzVRgpW uzruoWbKQRuuDJrG0Xykd iwXMgsFV8kBD0tzUupvSB bmLIxDJHvRwUvq8bct221 mJKvd1lkKGBOTAevGJORZ Wc2b4dtLGWLFGCgGN3xP9 17XGYyIENvdXJpZXIgTmV 0C435XOAnMRibykthrA4z ozm5jOcoA67rq9V7AlxcX 374QEdqsHdnkJOqJiitw3 ahrBA0AKtqe7ZsIOY9TEk kEVP6R1wfsEF0oTTgjBvq hPOwRJ4yt3csuJY4kaKiF RB4sDotjFN0xIxokyoct2 cuzOI3sHC4EXbxkZT3HDv lMpYsZ0ytDZUmqC7kX88s L9doQDPzoTadCJzzSMKim CW9RKJ5RSOrg8hrLCNmpW LnwLFkMgIpHBL1MzI5PXi dMDC6mVdkoYC8QMpwwP7a HGXrN71iZmIxpRciLiJtM mktMzYwfXtcbGlzdGxldm VsXGxldmVsbmZjMjNcbGV 2FKxlMiHiMaXnwHM0XSxr MkFprRY8IPaflMTnzAD6P CwjdSK5BEz7CCv9YOwgBO 19wManuHA1LNhnnH3dTTS yH97sVcCkbPwcMXsmIWYd NHM5BF59XJyph5NbTWAqv YsrREPwxA6rPvSbNHukdq VsbmZjbjIzXGxldmVsamM jUHaxmkRne3ZoryGjsFS2 CAgdhfSpqVY2sAcvOOVgt V7cLNP6ID01yIqfhTR7BP adfD5uEZEvY21cVuOulRj sLYBaSZKrBTF8HR21VRao a1OhWOIjxTccUCNebS7eG zIzXGxldmVsbmZjbjIzXG phneZmejVdVGgjniWwp4L hrqXviDX5JUxnbvEheRW5 eQlvSUOezXmtTkDaEAx8E Aj8s1avVJPzmQ74lBZunx K4tDtvTNzwkNL1OcDlOey tMzYwfXtcbGlzdGxldmVs VGzixrVwjbGsVvNmpGI1I QnuYsAhWrXvaLI0ISfcEi DmhSC0HGnwrENzeAM7KFv jvDR0EDx8CGz0FRhmEK29 zDmpkEG2SSplhE6rUMNyL 31cZjJcbGkzMjQwXGZpLT T5CG59SMmth9PaKKCwfZi rDWWzhF4bKtThQUifimWc bmZjbjIzXGxldmVsamMwX QozlpVuu0TdorAtwDG1PK exaxYxbDC6qJnqCNOnvN0 qRMK9DS01nPknxNN5HYjy aH2bFNAsS01kKiNsmNdeL SKaAZIgDDC7HH02YWpkw7 LtDKSsrKeiAEJuaV8yRhI zXGxldmVsbmZjbjIzXGxl gsEderTrQKsdjkOqd1Gwd dSetNJ0YWioxeVcrJS9nE ifRJAgvBcxMiDqXLf2SOv 0e2bzMWObsC51aNIhknZ1 nUspEHgxaFY5HFJzCicuJ zYwfXtcbGlzdGxldmVsXG fpruBsqePaEiJpwEO2VNj eEsBsYvQbhJP2BZnkDcYv tHN6AOipxHKfiQZ9POlag BH7AMv7SBw8COnzBP88bI dfiIF8FRljbX9dGVLeG85 wEkDrwJn6ACIqWDQtVYX7 DZ73TEuep6UnRLCqcOabG HNnnQ0nCpAaOEhnbfOjel ZjbjIzXGxldmVsamMwXGx hdcXhe4WlxbWorLZ6AQov ukLiyRO0dSafPBEjsS0zH GL6OV75wScqyGQ5MGwarO 5vFNQxS14kEoVtcPo6WZR wMCJiSGW3ZD50zNbdSbpg bKV8e0GejkYcHPK5XKDzY BpbUtqjoTA8r2AkvgAwPJ ZkcAjvnSnnSNAoRXE5TUE 2KBfhe2TscdLofzdzPLAo iS04AHqikmW6zIqfCAStq dqiWbV8YCrjUFDdxmzqLS g4WUreSPJqnRB5CSDebMS iF7AdTCRqBA8cypn9AMH7 QEdjLBMiKwB4XOBezPGgN SRuyLfuRRobz164GJV5Kc FfKUQbihSjaRkaaR5sIaI kFWGDOBlDWGAZY6VSHtGH WSBBUlRFUlksIEVOREFSV MDPEOXZU18KXEEgEQXjsJ xwYXJcbGkzNjBcZmktMzY gMLnonjU5EIlhtfXulSl9 hNUvcQqdpP1sKsNoKECBS UxDSUZJRUQgQVRIRVJPTU LDP5YLXHJZABRUBZQDLAB RVzzMKG1umDCdgY== [facility] Work Phone: [facility] Work Phone: No Panel Informationon 03-23 -2025 Interpretation and review of laboratory results Abnormal [facility] Interpretation and review of laboratory results Abnormal [facility] Interpretation and review of laboratory results Abnormal [facility] Progress Noteon 05-14-2024 Progress Note Department of Internal Medicine Division of Endocrinology, Diabetes, & Metabolism Endocrinology Note Patient Name: Farhana Thrasher : 1940 AGE: 84 y.o. Room/Bed: T1-116/T1-116 A Admission Date: 05/10/2024 Visit Date: 05/14/2024 Reason for Endocrine Consult: post op heart Provider/Team Requesting Consult: CTS PCP: KELSEY MOON MD Outpt [place]: No ASSESSMENT: DM2 with hyperglycemia and retirement [...] Units, SubCUTAneo (more content not included)... Normal [facility] Progress Note - Attestation signed by Luz Hough DO at 05/14/2024 2:29 PM I have personally performed a yrmb-zx-kuun diagnostic evaluation on this patient on date of service 05/14/24. History, labs, imaging studies, and electronic medical record have been reviewed by me. This note documented by the []greenhouse laborer [x]JULIO CESAR reflects my history, exam, and [...] IPR vs home early this week Cardiothoracic Surgery/[facility] Progress Note PATIENT NAME: Farhana [...] A total (more content not included)... Normal [facility] XR CHEST 1 VIEWon 05-14-2024 XR [...] Signed Date/Time: 05/14/2024 9:23 AM EDT Normal [facility] XR Chest Single viewon 05-14 [facility] Radiology Study observation (narrative) [facility] XR Chest Single viewOrdered By: Mara Plata on 05-14-2024 [facility] Work Phone: 30on 05-13-2024 30 [...] Nutritional Intake Outcome: Adequate for Discharge Normal [facility] BASIC METABOLIC PANELon 04-23 Anion gap [Moles/Vol] 8 mmol/L Normal 3-13 [facility] Comment on above: Performed By: #### L AB15, [id number] ####Food Cart Attendant: DANIELLA PEREZ ([phone])[facility] ([facility])[address] [place] [address] Calcium [Mass/Vol] 8.9 mg/dL Normal 8.8-10.0 [facility] Comment on above: Performed By: #### L AB15, [id number] ####Food Cart Attendant: DANIELLA PEREZ ([phone])[facility] ([facility])[address] [place] [address] [place] Chloride [Moles/Vol] 107 mmol/L Normal 98-107 [facility] Comment on above: Performed By: #### L AB15, [id number] ####Food Cart Attendant: DANIELLA PEREZ ([phone])[facility] ([facility])[address] [place] [address] [place] CO2 [Moles/Vol] 24 mmol/L Normal 23-31 [facility] Comment on above: Performed By: #### L AB15, [id number] ####Food Cart Attendant: DANIELLA PEREZ ([phone])[facility] ([facility])[address] [place] [address] [place] Creatinine [Mass/Vol] 1.07 mg/dL Normal 0.72-1.25 [facility] Comment on above: Performed By: #### L AB15, [id number] ####Food Cart Attendant: DANIELLA PEREZ ([phone])[facility])[address] [place] [address] [place] GLOMERULAR FILTRATION RATE ML/MIN/1.73 SQ M.PREDICTED 69.3 mL/min/1.73m*2 Normal >60.0 [facility] Comment on above: Result Comment: Calc ulation based on the Chronic Kidney Disease Epidemiology Collaboration (CKD-EPI) equation refit without adjustment for race Performed By: #### L BARBARA, [id number] ####Food Cart Attendant: DANIELLA PEREZ ([phone])[facility])[address] [place] [address] Glucose [Mass/Vol] 183 mg/dL High 82-115 [facility] Comment on above: Performed By: #### Verito JIMENEZ, [id number] ####Food Cart Attendant: DANIELLA PEREZ ([phone])[address] Potassium [Moles/Vol] 4.1 mmol/L Normal 3.5-5.1 [facility] Comment on above: Result Comment: [facility] potassium values may be up to 0.5 mmol/L lower than serum values. Performed By: #### L BARBARA, [id number] ####Food Cart Attendant: DANIELLA PEREZ ([phone])[place] [address] [place] Sodium [Moles/Vol] 139 mmol/L Normal 136-145 [facility] Comment on above: Performed By: #### L AB15, [id number] ####Food Cart Attendant: DANIELLA PEREZ ([id number])[facility])[address] [place] [address] [place] Urea nitrogen [Mass/Vol] 25 mg/dL High 9-23 [facility] Comment on above: Performed By: #### L AB15, [id number] ####Food Cart Attendant: DANIELLA PEREZ ([phone])[facility] ([facility])[address] [place] [address] Basic metabolic 1998 panelon 05-13-2024 Anion gap [Moles/Vol] 8 mmol/L 3 - 13 mmol/L [facility] Calcium [Mass/Vol] 8.9 mg/dL 8.8 - 10. 0 mg/dL [facility] Chloride [Moles/Vol] 107 mmol/L 98 - 10 7 mmol/L [facility] CO2 [Moles/Vol] 24 mmol/L 23 - 31 mmol/L [facility] Creatinine [Mass/Vol] 1.07 mg/dL 0.72 - 1.25 mg/dL [facility] GFR/1.73 sq M.predicted (S/P/Bld) [Vol rate/Area] 69.3 mL/min - PINF [facility] Glucose [Mass/Vol] 183 mg/dL High 82 - 115 mg/dL [facility] Interpretation and review of laboratory results Abnormal [facility] Potassium [Moles/Vol] 4.1 mmol/L 3.5 - 5.1 mmol/L [facility] Sodium [Moles/Vol] 139 mmol/L 136 - 145 mmol/L [facility] Urea nitrogen [Mass/Vol] 25 mg/dL High 9 - 23 mg/dL [facility] CBC (HEMOGRAM)on 05-13-2024 Erythrocyte distribution width (RBC) [Ratio] 14.6 % Normal 11.5-15.0 [facility] Comment on above: Performed By: #### L [id number] ####Food Cart Attendant: DANIELLA PEREZ ([phone])[facility] ([facility])[address] [place] [address] Hematocrit (Bld) [Volume fraction] 25.6 % Low 40.0-52.0 [facility] Comment on above: Performed By: #### L [id number] ####Food Cart Attendant: DANIELLA PEREZ ([phone])[facility])[address] [place] [address] Hemoglobin (Bld) [Mass/Vol] 8.2 g/dL Low 13.0-18.0 [facility] Comment on above: Performed By: #### L [id number] ####Food Cart Attendant: DANIELLA PEREZ ([phone])[facility] ([facility])[address] [place] [address] MCH (RBC) [Entitic mass] 27.6 pg Normal 26.0-34.0 [facility] Comment on above: Performed By: #### L [id number] ####Food Cart Attendant: DANIELLA PEREZ ([phone])[facility] ([facility])[address] [place] [address] MCHC 32.0 % Normal 30.5-36.0 [facility] Comment on above: Performed By: #### L [id number] ####Food Cart Attendant: DANIELLA PEREZ ([phone])[facility])[address] [place] [address] MCV (RBC) [Entitic vol] 86.2 fL Normal 77.0-99.0 [facility] Comment on above: Performed By: #### L [id number] ####Food Cart Attendant: DANIELLA PEREZ ([phone])[facility] ([facility])[address] [place] [address] Platelet mean volume (Bld) [Entitic vol] 10.2 fL Normal 9.0-12.7 [facility] Comment on above: Performed By: #### L [id number] ####Food Cart Attendant: DANIELLA PEREZ ([phone])[facility])[address] [place] [address] Platelets (Bld) [#/Vol] 161 10*3/uL Normal 140-440 [facility] Comment on above: Performed By: #### L [id number] ####Food Cart Attendant: DANIELLA PEREZ ([phone])[facility] ([facility])[address] [place] [address] RBC (Bld) [#/Vol] 2.97 10*6/uL Low 4.40-5.90 [facility] Comment on above: Performed By: #### L [id number] ####Food Cart Attendant: DANIELLA PEREZ ([phone])[facility] ([facility])[address] [place] [address] WBC (Bld) [#/Vol] 10.5 10*3/uL Normal 3.6-10.7 [facility] Comment on above: Performed By: #### L [id number] ####Food Cart Attendant: DANIELLA PEREZ ([phone])[facility] ([facility])[address] [place] [address] CBC panel Auto (Bld)Ordered By: Joel Nagel on 05-13-2024 Erythrocyte distribution width (RBC) [Ratio] 14.6 % 11.5 - 15.0 % [facility] Hematocrit (Bld) [Volume fraction] 25.6 % Low 40.0 - 52.0 % [facility] Hemoglobin (Bld) [Mass/Vol] 8.2 g/dL Low 13.0 - 18.0 g/dL [facility] Interpretation and review of laboratory results Abnormal [facility] MCH (RBC) [Entitic mass] 27.6 pg 26. 0 - 34.0 pg [facility] MCHC (RBC) [Mass/Vol] 32 % 30.5 - 36.0 % [facility] MCV (RBC) [Entitic vol] 86.2 fL 77.0 - 99.0 fL [facility] Platelet mean volume (Bld) [Entitic vol] 10.2 fL 9.0 - 12.7 fL [facility] Platelets (Bld) [#/Vol] 161 10*3/uL 140 - 440 10*3/uL [facility] RBC (Bld) [#/Vol] 2.97 10*6/uL Low 4.40 - 5.9 0 10*6/uL [facility] WBC (Bld) [#/Vol] 10.5 10*3/uL 3.6 - 10.7 10*3/uL [facility] Laboratory - Chemistry and C hemistry - challengeon 05-13-2024 Glucose [Mass/Vol] 285 mg/dL High 70 - 100 mg/dL [facility] Glucose [Mass/Vol] 185 mg/dL High 70 - 100 mg/dL [facility] Glucose [Mass/Vol] 248 mg/dL High 70 - 100 mg/dL [facility] Glucose [Mass/Vol] 276 mg/dL High 70 - 100 mg/dL [facility] Magnesium [Mass/Vol] 2.1 mg/dL 1.6 - 2 .6 mg/dL [facility] MAGNESIUMon 05-13-2024 Magnesium [Mass/Vol] 2.1 mg/dL Normal 1.6-2.6 [facility] Comment on above: Result Comment: JEAN CARLOS Nuñez COMMENTS: Higher values can be expected in females during menses. Performed By: #### L AB15, [id number] ####Food Cart Attendant: DANIELLA PEREZ ([phone])[facility] ([facility])[address] [place] [address] Magnesium [Mass/Vol]on 05-13 Interpretation and review of laboratory results Normal [facility] No Panel Informationon 05-13 Interpretation and review of laboratory results Abnormal [facility] Interpretation and review of laboratory results Abnormal [facility] Interpretation and review of laboratory results Abnormal [facility] Interpretation and review of laboratory results Abnormal [facility] Progress Noteon 05-13-2024 Progress Note - Attestation signed by Luz Hough DO at 05/13/2024 12:21 PM I have personally performed a [id number] diagnostic evaluation on this patient on date of service 05/13/24. History, labs, imaging studies, and electronic medical record have been reviewed by me. This note documented by the []greenhouse laborer [x]JULIO CESAR reflects my history, exam, and [...] -endocrine following, insulin per their recs Cardiothoracic Surgery/[facility] Progress Note PATIENT NAME: Farhana [...] anemia/consumptive t (more content not included)... Normal [facility] Progress Note Department of Internal Medicine Division of Endocrinology, Diabetes, & Metabolism Endocrinology Note Patient Name: Farhana Thrasher : 1940 AGE: 84 y.o. Room/Bed: [facility] A Admission Date: 05/10/2024 Visit Date: 05/13/2024 Reason for Endocrine Consult: post op heart Provider/Team Requesting Consult: CTS PCP: KELSEY MOON MD Outpt [place]: No ASSESSMENT: DM2 with hyperglycemia and intermediate card tender insulin Stress hyperglycemia CABGX3 HLD/CAD Obesity Body [...] BID pantoprazole, (more content not included)... Normal [facility] XR CHEST 1 VIEWon 05-13-2024 XR [...] Signed Date/Time: 05/13/2024 5:44 AM EDT Normal [facility] XR Chest Single viewon 05-13 [facility] Radiology Study observation (narrative) [facility] XR Chest Single viewOrdered By: Kvng Martin on 05-13-2024 [facility] Work Phone: 30on 05-12-2024 30 [...] Goal: Assess Nutritional Intake Outcome: Progressing Normal [facility] BASIC METABOLIC PANELon 03-2 Anion gap [Moles/Vol] 8 mmol/L Normal 3-13 [facility] Comment on above: Performed By: #### L AB103, LAB15 ####Food Cart Attendant: DANIELLA PEREZ ([phone])[facility] [place] [address] Calcium [Mass/Vol] 8.4 mg/dL Low 8.8-10.0 [facility] Comment on above: Performed By: #### L AB103, LAB15 ####Food Cart Attendant: DANIELLA PEREZ ([phone])[facility] ([facility])[address] [place] [address] [place] Chloride [Moles/Vol] 107 mmol/L Normal 98-107 [facility] Comment on above: Performed By: #### L AB103, LAB15 ####Food Cart Attendant: DANIELLA PEREZ ([phone])[facility] [place] [address] CO2 [Moles/Vol] 22 mmol/L Low 23-31 [facility] Comment on above: Performed By: #### L AB103, LAB15 ####Food Cart Attendant: DANIELLA PEREZ ([phone])[facility] [place] [address] Creatinine [Mass/Vol] 0.82 mg/dL Normal 0.72-1.25 [facility] Comment on above: Performed By: #### L AB103, LAB15 ####Food Cart Attendant: DANIELLA PEREZ ([phone])[facility] ([facility])[address] [place] [address] [place] GLOMERULAR FILTRATION RATE ML/MIN/1.73 SQ M.PREDICTED 87.7 mL/min/1.73m*2 Normal >60.0 [facility] Comment on above: Result Comment: Calc ulation based on the Chronic Kidney Disease Epidemiology Collaboration (CKD-EPI) equation refit without adjustment for race Performed By: #### L AB103, LAB15 ####Food Cart Attendant: DANIELLA PEREZ ([phone])[facility]18 [place] [address] [place] Glucose [Mass/Vol] 164 mg/dL High 82-115 [facility] Comment on above: Performed By: #### L AB103, LAB15 ####Food Cart Attendant: DANIELLA PEREZ ([phone])[facility] ([facility])[address] [place] [address] Potassium [Moles/Vol] 4.3 mmol/L Normal 3.5-5.1 [facility] Comment on above: Result Comment: [facility] potassium values may be up to 0.5 mmol/L lower than serum values. Performed By: #### L AB103, LAB15 ####Food Cart Attendant: DANIELLA PEREZ ([phone])[facility] ([facility])[address] [place] [address] Sodium [Moles/Vol] 137 mmol/L Normal 136-145 [facility] Comment on above: Performed By: #### L AB103, LAB15 ####Food Cart Attendant: DANIELLA PEREZ ([phone])[facility] ([facility])[address] [place] [address] Urea nitrogen [Mass/Vol] 18 mg/dL Normal 9-23 [facility] Comment on above: Performed By: #### L AB103, LAB15 ####Food Cart Attendant: DANIELLA PEREZ ([phone])[facility] ([facility])[address] [place] [address] Basic metabolic 1998 panelon 05-12-2024 Anion gap [Moles/Vol] 8 mmol/L 3 - 13 mmol/L [facility] Calcium [Mass/Vol] 8.4 mg/dL Low 8.8 - 10. 0 mg/dL [facility] Chloride [Moles/Vol] 107 mmol/L 98 - 10 7 mmol/L [facility] CO2 [Moles/Vol] 22 mmol/L Low 23 - 31 mmol/L [facility] Creatinine [Mass/Vol] 0.82 mg/dL 0.72 - 1.25 mg/dL [facility] GFR/1.73 sq M.predicted (S/P/Bld) [Vol rate/Area] 87.7 mL/min - PINF [facility] Glucose [Mass/Vol] 164 mg/dL High 82 - 115 mg/dL [facility] Interpretation and review of laboratory results Abnormal [facility] Potassium [Moles/Vol] 4.3 mmol/L 3.5 - 5.1 mmol/L [facility] Sodium [Moles/Vol] 137 mmol/L 136 - 145 mmol/L [facility] Urea nitrogen [Mass/Vol] 18 mg/dL 9 - 23 mg/dL [facility] CBC (HEMOGRAM)on 05-12-2024 Erythrocyte distribution width (RBC) [Ratio] 14.8 % Normal 11.5-15.0 [facility] Comment on above: Performed By: #### L [id number] ####Food Cart Attendant: DANIELLA PEREZ ([phone])[address] Hematocrit (Bld) [Volume fraction] 22.9 % Low 40.0-52.0 [facility] Comment on above: Performed By: #### L [id number] ####Food Cart Attendant: DANIELLA PEREZ ([phone])[address] Hemoglobin (Bld) [Mass/Vol] 7.5 g/dL Low 13.0-18.0 [facility] Comment on above: Performed By: #### L [id number] ####Food Cart Attendant: DANIELLA PEREZ ([id number])[address] MCH (RBC) [Entitic mass] 27.8 pg Normal 26.0-34.0 [facility] Comment on above: Performed By: #### L [id number] ####Food Cart Attendant: DANIELLA PEREZ ([id number])[address] MCHC 32.8 % Normal 30.5-36.0 [facility] Comment on above: Performed By: #### L [id number] ####Food Cart Attendant: DANIELLA PEREZ ([id number])[address] MCV (RBC) [Entitic vol] 84.8 fL Normal 77.0-99.0 [facility] Comment on above: Performed By: #### L [id number] ####Food Cart Attendant: DANIELLA PEREZ ([phone])[facility] ([facility])[address] [place] [address] Platelet mean volume (Bld) [Entitic vol] 9.7 fL Normal 9.0-12.7 [facility] Comment on above: Performed By: #### L [id number] ####Food Cart Attendant: DANIELLA PEREZ ([phone])[facility] ([facility])[address] [place] [address] Platelets (Bld) [#/Vol] 103 10*3/uL Low 140-440 [facility] Comment on above: Performed By: #### L [id number] ####Food Cart Attendant: DANIELLA PEREZ ([phone])[facility] ([facility])[address] [place] [address] RBC (Bld) [#/Vol] 2.70 10*6/uL Low 4.40-5.90 [facility] Comment on above: Performed By: #### L [id number] ####Food Cart Attendant: DANIELLA PEREZ ([phone])[facility] ([facility])[address] [place] [address] WBC (Bld) [#/Vol] 9.3 10*3/uL Normal 3.6-10.7 [facility] Comment on above: Performed By: #### L [id number] ####Food Cart Attendant: DANIELLA PEREZ ([phone])[facility] ([facility])[address] [place] [address] CBC panel Auto (Bld)on 05-12 Erythrocyte distribution width (RBC) [Ratio] 14.8 % 11.5 - 15.0 % [facility] Hematocrit (Bld) [Volume fraction] 22.9 % Low 40.0 - 52.0 % [facility] Hemoglobin (Bld) [Mass/Vol] 7.5 g/dL Low 13.0 - 18.0 g/dL [facility] Interpretation and review of laboratory results Abnormal [facility] MCH (RBC) [Entitic mass] 27.8 pg 26. 0 - 34.0 pg [facility] MCHC (RBC) [Mass/Vol] 32.8 % 30.5 - 36.0 % [facility] MCV (RBC) [Entitic vol] 84.8 fL 77.0 - 99.0 fL [facility] Platelet mean volume (Bld) [Entitic vol] 9.7 fL 9.0 - 12.7 fL [facility] Platelets (Bld) [#/Vol] 103 10*3/uL Low 140 - 440 10*3/uL [facility] RBC (Bld) [#/Vol] 2.7 10*6/uL Low 4.40 - 5.9 0 10*6/uL [facility] WBC (Bld) [#/Vol] 9.3 10*3/uL 3.6 - 10.7 10*3/uL [facility] Laboratory - Chemistry and C hemistry - challengeon 05-12-2024 Glucose [Mass/Vol] 185 mg/dL High 70 - 100 mg/dL [facility] Glucose [Mass/Vol] 213 mg/dL High 70 - 100 mg/dL [facility] Glucose [Mass/Vol] 168 mg/dL High 70 - 100 mg/dL [facility] Glucose [Mass/Vol] 200 mg/dL High 70 - 100 mg/dL [facility] Magnesium [Mass/Vol] 2 mg/dL 1.6 - 2 .6 mg/dL [facility] Laboratory - Coagulationon 0 05-12-2024 aPTT Coag (PPP) [Time] 43.6 s High 20.0 - 30.5 s [facility] INR Coag (PPP) [Relative time] 1.2 {INR} High 0.9 - 1.1 [facility] PT Coag (Bld) [Time] 13.1 s High 9.0 - 1 2.0 s [facility] MAGNESIUMon 05-12-2024 Magnesium [Mass/Vol] 2.0 mg/dL Normal 1.6-2.6 [facility] Comment on above: Result Comment: JEAN CARLOS Nuñez COMMENTS: Higher values can be expected in females during menses. Performed By: #### L AB103, LAB15 ####Food Cart Attendant: DANIELLA PEREZ ([id number])[facility] ([address] Magnesium [Mass/Vol]on 05-12 Interpretation and review of laboratory results Normal [facility] No Panel Informationon 05-12 Interpretation and review of laboratory results Abnormal [facility] Interpretation and review of laboratory results Abnormal [facility] Interpretation and review of laboratory results Abnormal [facility] Interpretation and review of laboratory results Abnormal [facility] Interpretation and review of laboratory results Abnormal [facility] PROTIME AND APTTon aPTT Coag (Bld) [Time] 43.6 s High 20.0-30.5 [facility] Comment on above: Performed By: #### L [id number] ####Food Cart Attendant: DANIELLA PEREZ ([id number])[facility])[address] [place] [address] INR Coag (PPP) [Relative time] 1.2 {INR} High 0.9-1.1 [facility] Comment on above: Result Comment: Poli [...] prevent Myocardial Infarction Performed By: #### L [id number] ####Food Cart Attendant: DANIELLA PEREZ ([phone])[facility])[address] [place] [address] PT Coag (PPP) [Time] 13.1 s High 9.0-12.0 [facility] Comment on above: Performed By: #### L [id number] ####Food Cart Attendant: DANIELLA PEREZ ([id number])[facility])[address] [place] [address] Progress Noteon 05-12-2024 Progress Note Cardiothoracic Surgery [...] observe for. Will continue to monitor. [facility] Progress Note PHYSICAL THERAPY [facility] Treatment Note Name/MRN: Nimisha Thrasher ([id number]) Date of : 1940 Age: 84 y.o. [...] 6-9 x5 reps due to fatigue IS: [id number] mL x5 reps Acapella: x5 reps Plan [...] (gait & tp) Sosa Alfred, FRANKIE Arguello, NON LICENSED OPERATOR [facility] Progress Note - Attestation signed by Lilian Cisse MD at 05/12/2024 1:56 PM I have personally performed a face to face diagnostic evaluation on this patient. 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 Room/Bed: T1-116/T1-116 A Admission Date: 05/10/2024 Visit Date: 05/12/2024 Reason for Endocrine Consult: post op heart Provider/Team Requesting Consult: CTS PCP: KELSEY MOON MD Outpt [place]: No ASSESSMENT: DM2 with hyperglycemia and retirement [...] 5 MG (more content not included)... Normal [facility] Progress Note - Attestation signed by Luz Hough DO at 05/12/2024 3:54 PM I have personally performed a [id number] diagnostic evaluation on this patient on date of service 05/12/24. History, labs, imaging studies, and electronic medical record have been reviewed by me. This note documented by the []greenhouse laborer [x]JULIO CESAR reflects my history, exam, and [...] PAP at night. Weaned off of pressors, [place] removed. Pain tolerable, up walking with nursing. [...] Normal Post-o (more content not included)... Normal [facility] XR CHEST 1 VIEWon 05-12-2024 XR CHEST 1 VIEW Patient Name: FARHANA THRASHER : [address] [facility]#: [id number] Exam Date/Time: 05/12/2024 08:24 Procedure: XR CHEST 1 VIEW Ordering Provider: HANDY KYLE Reason For Exam: Shortness of breath CHEST - PORTABLE: CLINICAL INDICATION: Shortness of breath TECHNIQUE: Portable AP COMPARISON: One day ago. IMPRESSION: FINDINGS/IMPRESSION: Limitations: Patient positioning/rotation Lines, tubes, and devices: Interval removal of [place] catheter with right IJ introducer sheath remaining. [...] Signed Date/Time: 05/12/2024 10:39 AM EDT Normal [facility] XR Chest Single viewon 05-12 [facility] Radiology Study observation (narrative) [facility] XR Chest Single viewOrdered By: Dickson Singh on 05-12-2024 [facility] Work Phone: 30on 05-11-2024 30 [...] Goal: Assess Nutritional Intake Outcome: Progressing Normal [facility] BASIC METABOLIC PANELon 04-23 Anion gap [Moles/Vol] 6 mmol/L Normal 3-13 [facility] Comment on above: Performed By: #### L AB103, LAB15 ####Food Cart Attendant: DANIELLA PEREZ ([phone])[facility] ([facility])[address] [place] [address] Calcium [Mass/Vol] 8.1 mg/dL Low 8.8-10.0 [facility] Comment on above: Performed By: #### L AB103, LAB15 ####Food Cart Attendant: DANIELLA PEREZ ([phone])[facility] ([facility])[address] [place] [address] [place] Chloride [Moles/Vol] 113 mmol/L High 98-107 [facility] Comment on above: Performed By: #### L AB103, LAB15 ####Food Cart Attendant: DANIELLA PEREZ ([phone])[facility] ([facility])[address] [place] [address] [place] CO2 [Moles/Vol] 21 mmol/L Low 23-31 [facility] Comment on above: Performed By: #### L AB103, LAB15 ####Food Cart Attendant: DANIELLA PEREZ ([phone])[facility])[address] [place] [address] Creatinine [Mass/Vol] 0.80 mg/dL Normal 0.72-1.25 [facility] Comment on above: Performed By: #### L AB103, LAB15 ####Food Cart Attendant: DANIELLA PEREZ ([phone])[facility])[address] [place] [address] GLOMERULAR FILTRATION RATE ML/MIN/1.73 SQ M.PREDICTED 88.4 mL/min/1.73m*2 Normal >60.0 [facility] Comment on above: Result Comment: Calc ulation based on the Chronic Kidney Disease Epidemiology Collaboration (CKD-EPI) equation refit without adjustment for race Performed By: #### L SUKUMAR, LAB15 ####Food Cart Attendant: DANIELLA PEREZ ([phone])[facility])[address] [place] [address] Glucose [Mass/Vol] 122 mg/dL High 82-115 [facility] Comment on above: Performed By: #### L 103, LAB15 ####Food Cart Attendant: DANIELLA PEREZ ([id number])[address] Potassium [Moles/Vol] 4.4 mmol/L Normal 3.5-5.1 [facility] Comment on above: Result Comment: [facility] potassium values may be up to 0.5 mmol/L lower than serum values. Performed By: #### L AB103, LAB15 ####Food Cart Attendant: DANIELLA PEREZ ([phone])[address] Sodium [Moles/Vol] 140 mmol/L Normal 136-145 [facility] Comment on above: Performed By: #### L AB103, LAB15 ####Food Cart Attendant: DANIELLA PEREZ ([phone])[facility] [place] [address] Urea nitrogen [Mass/Vol] 14 mg/dL Normal 9-23 [facility] Comment on above: Performed By: #### L AB103, LAB15 ####Food Cart Attendant: DANIELLA PEREZ ([id number])[facility] ([facility])[address] [place] [address] BLOOD GAS ARTERIALon 20-2 025 AMOUNT OF OXYGEN 4 Normal [facility] Comment on above: Order Comment: 30 mi n after vent changes Performed By: #### L AB76 ####Food Cart Attendant: DANIELLA PEREZ ([phone])[facility] ([facility])[address] [place] [address] Base excess Calc (Bld) [Moles/Vol] -2.8000 mmol/L Normal -3.0-3.0 [facility] Comment on above: Order Comment: 30 mi n after vent changes Performed By: #### L AB76 ####Food Cart Attendant: DANIELLA PEREZ ([id number])[facility] ([facility])[address] [place] [address] CO2 [Moles/Vol] 22.7 mmol/L Low 23.0-27.0 [facility] Comment on above: Order Comment: 30 mi n after vent changes Performed By: #### L AB76 ####Food Cart Attendant: DANIELLA PEREZ ([id number])[facility] ([facility])[address] [place] [address] HCO3 (Bld) [Moles/Vol] 21.6 mmol/L Normal 21.0-25.0 [facility] Comment on above: Order Comment: 30 mi n after vent changes Performed By: #### L AB76 ####Food Cart Attendant: DANIELLA PEREZ ([phone])[facility] ([facility])[address] [place] [address] Hemoglobin (Bld) [Mass/Vol] 7.9 g/dL Normal Screen only [facility] Comment on above: Order Comment: 30 mi n after vent changes Performed By: #### L AB76 ####Food Cart Attendant: DANIELLA PEREZ ([id number])[facility] ([facility])[address] [place] [address] OXYGEN SATURATION (%) IN ARTERIAL BLOOD 98.5 % Normal 95.0-100.0 [facility] Comment on above: Order Comment: 30 mi n after vent changes Performed By: #### L AB76 ####Food Cart Attendant: DANIELLA PEREZ ([id number])[facility] ([facility])[address] [place] [address] PCO2 ARTERIAL 35.5 mm Hg Normal >35.0-<45.0 [facility] Comment on above: Order Comment: 30 mi n after vent changes Performed By: #### L AB76 ####Food Cart Attendant: DANIELLA PEREZ ([phone])[facility] ([facility])[address] [place] [address] PH ARTERIAL 7.402 Normal 7.350-7.450 [facility] Comment on above: Order Comment: 30 mi n after vent changes Performed By: #### L AB76 ####Food Cart Attendant: DANIELLA PEREZ ([id number])[facility] ([facility])[address] [place] [address] PO2 ARTERIAL 157.0 mm Hg High 80.0-100.0 [facility] Comment on above: Order Comment: 30 mi n after vent changes Performed By: #### L AB76 ####Food Cart Attendant: DANIELLA PEREZ ([phone])[facility] ([facility])[address] [place] [address] SOURCE OF OXYGEN Nasal Cannula (LPM) Normal [facility] Comment on above: Order Comment: 30 mi n after vent changes Performed By: #### L AB76 ####Food Cart Attendant: DANIELLA PEREZ ([phone])[facility] ([facility])[address] [place] [address] Basic metabolic 1998 panelon 05-11-2024 Anion gap [Moles/Vol] 6 mmol/L 3 - 13 mmol/L [facility] Calcium [Mass/Vol] 8.1 mg/dL Low 8.8 - 10. 0 mg/dL [facility] Chloride [Moles/Vol] 113 mmol/L High 98 - 10 7 mmol/L [facility] CO2 [Moles/Vol] 21 mmol/L Low 23 - 31 mmol/L [facility] Creatinine [Mass/Vol] 0.8 mg/dL 0.72 - 1.25 mg/dL [facility] GFR/1.73 sq M.predicted (S/P/Bld) [Vol rate/Area] 88.4 mL/min - PINF [facility] Glucose [Mass/Vol] 122 mg/dL High 82 - 115 mg/dL [facility] Interpretation and review of laboratory results Abnormal [facility] Potassium [Moles/Vol] 4.4 mmol/L 3.5 - 5.1 mmol/L [facility] Sodium [Moles/Vol] 140 mmol/L 136 - 145 mmol/L [facility] Urea nitrogen [Mass/Vol] 14 mg/dL 9 - 23 mg/dL [facility] CALCIUM, IONIZEDon CALCIUM IONIZED 4.00 mg/dL Low 4.30-5.20 [facility] Comment on above: Order Comment: Obtai n PRN and check ionized Ca level if serum Ca level less than 8.0 Performed By: #### L AB54 ####Food Cart Attendant: DANIELLA PEREZ ([id number])[address] PH, IONIZED CALCIUM 7.43 Normal 7.31-7.46 [facility] Comment on above: Order Comment: Obtai n PRN and check ionized Ca level if serum Ca level less than 8.0 Performed By: #### L AB54 ####Food Cart Attendant: DANIELLA PEREZ ([phone])[address] Calcium.ionized [Moles/Vol]O rdered By: Carlos Curiel on 05-11-2024 Calcium.ionized (Bld) [Moles/Vol] 4 mg/dL Low 4.30 - 5.20 mg/dL [facility] Interpretation and review of laboratory results Abnormal [facility] PH, IONIZED CALCIUM 7.43 7.31 - 7.46 [facility] ECG 12-LEADon 05-11-2024 ECG 12-LEAD IMPRESSION: Sinus rhythm 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 Electronically Signed On 05-11-2024 12:29:06 EDT by [facility] ECG 12-LEAD IMPRESSION: Sinus rhythm RBBB and LAFB Minimal ST elevation, anterolateral leads Electronically Signed On 05-11-2024 09:12:22 EDT by [facility] HEMOGLOBIN AND HEMATOCRIT, B LOODon 05-11-2024 Hematocrit (Bld) [Volume fraction] 23.7 % Low 40.0-52.0 [facility] Comment on above: Order Comment: Recom mend 1 hour post transfusion Performed By: #### L [id number] ####Food Cart Attendant: DANIELLA PEREZ ([id number])[facility] ([facility])[address] [place] [address] Hemoglobin (Bld) [Mass/Vol] 7.7 g/dL Low 13.0-18.0 [facility] Comment on above: Order Comment: Recom mend 1 hour post transfusion Performed By: #### L [id number] ####Food Cart Attendant: DANIELLA PEREZ ([phone])[facility] ([facility])[address] [place] [address] Hemoglobin (Bld) [Mass/Vol]O rdered By: Charles Gordon on 05-11-2024 Hematocrit (Bld) [Volume fraction] 23.7 % Low 40.0 - 52.0 % [facility] Interpretation and review of laboratory results Abnormal [facility] Laboratory - Chemistry and C hemistry - challengeon 05-11-2024 Glucose [Mass/Vol] 192 mg/dL High 70 - 100 mg/dL [facility] Glucose [Mass/Vol] 137 mg/dL High 70 - 100 mg/dL [facility] Glucose [Mass/Vol] 127 mg/dL High 70 - 100 mg/dL [facility] Glucose [Mass/Vol] 150 mg/dL High 70 - 100 mg/dL [facility] Glucose [Mass/Vol] 128 mg/dL High 70 - 100 mg/dL [facility] Glucose [Mass/Vol] 148 mg/dL High 70 - 100 mg/dL [facility] Glucose [Mass/Vol] 137 mg/dL High 70 - 100 mg/dL [facility] Glucose [Mass/Vol] 96 mg/dL 70 - 100 mg/dL [facility] Magnesium [Mass/Vol] 2.1 mg/dL 1.6 - 2 .6 mg/dL [facility] Glucose [Mass/Vol] 122 mg/dL High 70 - 100 mg/dL [facility] Glucose [Mass/Vol] 132 mg/dL High 70 - 100 mg/dL [facility] Glucose [Mass/Vol] 149 mg/dL High 70 - 100 mg/dL [facility] Glucose [Mass/Vol] 151 mg/dL High 70 - 100 mg/dL [facility] Glucose [Mass/Vol] 148 mg/dL High 70 - 100 mg/dL [facility] Glucose [Mass/Vol] 183 mg/dL High 70 - 100 mg/dL [facility] Laboratory - Chemistry and C hemistry - challengeOrdered By: Jose Seth on 05-11-2024 Base excess Calc (Bld) [Moles/Vol] -2.8000 mmol/L -3.0 - 3.0 mmol/L [facility] CO2 (Bld) [Partial pressure] 35.5 mm[Hg] - PINF [facility] CO2 [Moles/Vol] 22.7 mmol/L Low 23.0 - 27.0 mmol/L [facility] HCO3 (Bld) [Moles/Vol] 21.6 mmol/L 21.0 - 25.0 mmol/L [facility] Oxygen (Bld) [Partial pressure] 157 mm[Hg] High [facility] pH (Bld) 7.402 [pH] 7.350 - 7.450 [facility] Laboratory - Coagulationon 0 05-11-2024 aPTT Coag (PPP) [Time] 36.9 s High 20.0 - 30.5 s [facility] INR Coag (PPP) [Relative time] 1.1 {INR} 0.9 - 1.1 [facility] PT Coag (Bld) [Time] 12.7 s High 9.0 - 1 2.0 s [facility] Laboratory - Hematology and Cell countsOrdered By: Jose Seth on 05-11-2024 Hemoglobin (Bld) [Mass/Vol] 7.9 g/dL Screen only [facility] Laboratory - Hematology and Cell countsOrdered By: Charles Gordon on 05-11-2024 Hemoglobin (Bld) [Mass/Vol] 7.7 g/dL Low 13.0 - 18.0 g/dL [facility] MAGNESIUMon 05-11-2024 Magnesium [Mass/Vol] 2.1 mg/dL Normal 1.6-2.6 [facility] Comment on above: Result Comment: JEAN CARLOS Nuñez COMMENTS: Higher values can be expected in females during menses. Performed By: #### L AB103, LAB15 ####Food Cart Attendant: DANIELLA PEREZ ([id number])[facility] ([facility] Magnesium [Mass/Vol]on 05-11 Interpretation and review of laboratory results Normal [facility] No Panel Informationon 05-11 Interpretation and review of laboratory results Abnormal [facility] Interpretation and review of laboratory results Abnormal [facility] Interpretation and review of laboratory results Abnormal [facility] Interpretation and review of laboratory results Abnormal [facility] P [place] 25 degrees [facility] MS Interval 182 ms [facility] QRS [place] -46 degrees [facility] QRSD Interval 130 ms [facility] QT Interval 397 ms [facility] QTC Interval 435 ms [facility] T Wave [place] 39 degrees [facility] Interpretation and review of laboratory results Abnormal [facility] Interpretation and review of laboratory results Abnormal [facility] Interpretation and review of laboratory results Normal [facility] Interpretation and review of laboratory results Abnormal [facility] Interpretation and review of laboratory results Abnormal [facility] Interpretation and review of laboratory results Abnormal [facility] Interpretation and review of laboratory results Abnormal [facility] Interpretation and review of laboratory results Abnormal [facility] Interpretation and review of laboratory results Abnormal [facility] Interpretation and review of laboratory results Abnormal [facility] No Panel InformationOrdered By: Lalit Fabian on 05-11-2024 P Magnolia 13 degrees [facility] Work Phone: MS Interval 194 ms [facility] Work Phone: QRS [place] -61 degrees [facility] Work Phone: QRSD Interval 163 ms [facility] Work Phone: QT Interval 477 ms [facility] Work Phone: QTC Interval 511 ms [facility] Work Phone: T Wave [place] 68 degrees [facility] Work Phone: [facility] Work Phone: No Panel InformationOrdered By: Jose Seth on 05-11-2024 Amount Of Oxygen 4 [facility] Interpretation and review of laboratory results Abnormal [facility] Source Of Oxygen Nasal Cannula (LPM) [facility] PROTIME AND APTTon aPTT Coag (Bld) [Time] 36.9 s High 20.0-30.5 [facility] Comment on above: Performed By: #### L [id number] ####Food Cart Attendant: DANIELLA PEREZ ([phone])[facility] ([employer] [facility])[address] [place] [address] INR Coag (PPP) [Relative time] 1.1 {INR} Normal 0.9-1.1 [facility] Comment on above: Performed By: #### L [id number] ####Food Cart Attendant: DANIELLA PEREZ ([phone])[facility] ([employer])[address] [place] [address] PT Coag (PPP) [Time] 12.7 s High 9.0-12.0 [facility] Comment on above: Performed By: #### L [id number] ####Food Cart Attendant: DANIELLA PEREZ ([phone])[facility] ([facility])[address] [place] [address] Progress Noteon 05-11-2024 Progress Note - Attestation signed by Lilian Cisse MD at 05/11/2024 12:36 PM I have personally performed a face to face diagnostic evaluation on this patient. 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 Room/Bed: T1-116/T1-116 A Admission Date: 05/10/2024 Visit Date: 05/11/2024 Reason for Endocrine Consult: post op heart Provider/Team Requesting Consult: CTS PCP: KELSEY MOON MD Outpt [place]: No ASSESSMENT: DM2 with hyperglycemia and retirement [...] pale. Comments: (more content not included)... Normal [facility] Progress Note - Attestation signed by Luz Hough DO at 05/11/2024 5:59 PM I have personally performed a ytnq-ts-ernl diagnostic evaluation on this patient on date of service 05/11/24. History, labs, imaging studies, and electronic medical record have been reviewed by me. This note documented by the []greenhouse laborer [x]JULIO CESAR reflects my history, exam, and [...] or diaphoretic. Neck: Comments: Central line and [place]. Cardiovascular: Rate and Rhythm: Normal rate and [...] deficit p (more content not included)... Normal [facility] TYLOR CARDIAC PANELon 2024 HEPTEM A10 51 mm Normal 51-72 [facility] Comment on above: Performed By: #### L [id number] ####Food Cart Attendant: DANIELLA PEREZ ([id number])[facility] ([facility])[address] [place] [address] HEPTEM A20 57 mm Normal 51-72 [facility] Comment on above: Performed By: #### L [id number] ####Food Cart Attendant: DANIELLA PEREZ ([phone])[facility] ([facility])[address] [place] [address] [place] HEPTEM ALPHA 68 DEGREES Low 70-81 [facility] Comment on above: Performed By: #### L [id number] ####Food Cart Attendant: DANIELLA PEREZ ([id number])[facility] ([facility])[address] [place] [address] [place] HEPT[place] CLOT FORMATION TIME 114 s High 45-110 [facility] Comment on above: Performed By: #### L [id number] ####Food Cart Attendant: DANIELLA PEREZ ([id number])[facility] ([facility])[address] [place] [address] [place] HEPTEM CLOTTING TIME 170 s Normal 122-208 [facility] Comment on above: Performed By: #### L [id number] ####Food Cart Attendant: DANIELLA PEREZ ([phone])[facility] ([facility])[address] [place] [address] [place] HEPT[place] MAXIMUM CLOT FIRMNESS 57 mm Normal 51-72 [facility] Comment on above: Performed By: #### L [id number] ####Food Cart Attendant: DANIELLA PEREZ ([phone])[facility] ([facility])[address] [place] [address] [place] INTEM A10 50 mm Low 51-72 [facility] Comment on above: Performed By: #### L [id number] ####Food Cart Attendant: DANIELLA PEREZ ([id number])[facility] ([facility])[address] [place] [address] [place] INTEM A20 56 mm Normal 51-72 [facility] Comment on above: Performed By: #### L [id number] ####Food Cart Attendant: DANIELLA PEREZ ([id number])[facility] ([facility])[address] [place] [address] [place] INTEM ALPHA 70 DEGREES Normal 70-81 [facility] Comment on above: Performed By: #### L [id number] ####Food Cart Attendant: DANIELLA PEREZ ([id number])[facility] ([facility])[address] [place] [address] [place] INTEM CLOT FORMATION TIME 103 s Normal 45-110 [facility] Comment on above: Performed By: #### L [id number] ####Food Cart Attendant: DANIELLA PEREZ ([phone])[facility] ([facility])[address] [place] [address] [place] INTEM CLOTTING TIME 198 s Normal 122-208 [facility] Comment on above: Performed By: #### L [id number] ####Food Cart Attendant: DANIELLA PEREZ ([phone])[facility] BLOOD [facility] ([facility])[address] [place] [address] INTEM MAXIMUM CLOT FIRMNESS 57 mm Normal 51-72 [facility] Comment on above: Performed By: #### L [id number] ####Food Cart Attendant: DANIELLA PEREZ ([phone])[facility]LOOD [facility] ([facility])[address] [place] [address] Thromboelastography after ad dtion of heparinase panel (Bld)Ordered By: Ca Delarosa on 05-11-2024 Clot formation.intrinsic coagulation system activated Rotational TEG (Bld) [Time] 198 s 122 - [address] [facility] Clot formation.intrinsic coagulation system activated Rotational TEG (Bld) [Time] 103 s 45 - [address] [facility] Clot formation.intrinsic coagulation system activated Rotational TEG (Bld) [Time] 70 [facility] Clot formation.intrinsic coagulation system activated Rotational TEG (Bld) [Time] 50 mm Low 51 - [address] [facility] Clot formation.intrinsic coagulation system activated Rotational TEG (Bld) [Time] 56 mm 51 - [address] [facility] Clot formation.intrinsic coagulation system activated Rotational TEG (Bld) [Time] 57 mm 51 - [address] [facility] Clot formation.intrinsic coagulation system activated.heparin insensitive Rotational TEG (Bld) [Time] 170 s 122 - [address] [facility] Clot formation.intrinsic coagulation system activated.heparin insensitive Rotational TEG (Bld) [Time] 114 s High 45 - [address] [facility] Clot formation.intrinsic coagulation system activated.heparin insensitive Rotational TEG (Bld) [Time] [address] [facility] Clot formation.intrinsic coagulation system activated.heparin insensitive Rotational TEG (Bld) [Time] 51 mm 51 - [address] [facility] Clot formation.intrinsic coagulation system activated.heparin insensitive Rotational TEG (Bld) [Time] 57 mm 51 - [address] [facility] Interpretation and review of laboratory results Abnormal [facility] Maximum clot firmness after addition of heparinase TEG (Bld) [Length] 57 mm 51 - 72 mm [facility] Vital signsOrdered By: Richi Fabian on 05-11-2024 Heart rate 71 /min bpm [facility] [employer] Work Phone: Vital signson 05-11-2024 Heart rate 72 /min bpm [facility] XR CHEST 1 VIEWon 05-11-2024 XR CHEST 1 VIEW Patient Name: FARHANA THRASHER : [address] [facility]#: [id number] Exam Date/Time: 05/11/2024 05:30 Procedure: XR CHEST 1 VIEW Ordering Provider: HANDY KYLE Reason For Exam: Shortness of breath CHEST - PORTABLE: CLINICAL INDICATION: Respiratory distress for follow up TECHNIQUE: Portable AP COMPARISON: One day ago FINDINGS: Tubes, lines and devices: Right [place] catheter with its tip in the region [...] Signed Date/Time: 05/11/2024 8:19 AM EDT Normal [facility] XR Chest Single viewon 05-11 [facility] Radiology Study observation (narrative) [facility] XR Chest Single viewOrdered By: Barron Long on 05-11-2024 [facility] [employer] Phone: BASIC METABOLIC PANELon 04-22 Anion gap [Moles/Vol] 9 mmol/L Normal 3-13 [facility] Comment on above: Performed By: #### L [id number] ####Food Cart Attendant: DANIELLA PEREZ ([id number])[facility] ([employer])[address] [place] [address] Calcium [Mass/Vol] 8.2 mg/dL Low 8.8-10.0 [facility] Comment on above: Performed By: #### L [id number] ####Food Cart Attendant: DANIELLA PEREZ ([phone])[facility] ([facility])[address] [place] [address] Chloride [Moles/Vol] 115 mmol/L High 98-107 [facility] Comment on above: Performed By: #### L [id number] ####Food Cart Attendant: DANIELLA PEREZ ([phone])[facility])[address] [place] [address] CO2 [Moles/Vol] 19 mmol/L Low 23-31 [facility] Comment on above: Performed By: #### L [id number] ####Food Cart Attendant: DANIELLA PEREZ ([phone])[facility])[address] [place] [address] Creatinine [Mass/Vol] 0.84 mg/dL Normal 0.72-1.25 [facility] Comment on above: Performed By: #### L [id number] ####Food Cart Attendant: DANIELLA PEREZ ([phone])[facility])[address] [place] [address] GLOMERULAR FILTRATION RATE ML/MIN/1.73 SQ M.PREDICTED 87.1 mL/min/1.73m*2 Normal >60.0 [facility] Comment on above: Result Comment: Calc ulation based on the Chronic Kidney Disease Epidemiology Collaboration (CKD-EPI) equation refit without adjustment for race Performed By: #### L [id number] ####Food Cart Attendant: DANIELLA PEREZ ([id number])[facility])[address] [place] [address] Glucose [Mass/Vol] 146 mg/dL High 82-115 [facility] Comment on above: Performed By: #### L [id number] ####Food Cart Attendant: DANIELLA PEREZ ([phone])[facility])[address] [place] [address] Potassium [Moles/Vol] 4.6 mmol/L Normal 3.5-5.1 [facility] Comment on above: Result Comment: [facility] potassium values may be up to 0.5 mmol/L lower than serum values. Performed By: #### L [id number] ####Food Cart Attendant: DANIELLA PEREZ ([phone])[facility] ([facility])[address] [place] [address] [place] Sodium [Moles/Vol] 143 mmol/L Normal 136-145 [facility] Comment on above: Performed By: #### L [id number] ####Food Cart Attendant: DANIELLA PEREZ ([phone])[facility])[address] [place] [address] Urea nitrogen [Mass/Vol] 16 mg/dL Normal 9-23 [facility] Comment on above: Performed By: #### L [id number] ####Food Cart Attendant: DANIELLA PEREZ ([phone])[facility] ([facility])[address] [place] [address] Anion gap [Moles/Vol] 6 mmol/L Normal 3-13 [facility] Comment on above: Performed By: #### L [id number], [id number], LAB15 ####Food Cart Attendant: DANIELLA PEREZ ([phone])[facility] ([facility])[address] [place] [address] Calcium [Mass/Vol] 9.8 mg/dL Normal 8.8-10.0 [facility] Comment on above: Performed By: #### L [id number], [id number], LAB15 ####Food Cart Attendant: DANIELLA PEREZ ([id number])[facility] ([facility])[address] [place] [address] [place] Chloride [Moles/Vol] 111 mmol/L High 98-107 [facility] Comment on above: Performed By: #### L [id number], [id number], LAB15 ####Food Cart Attendant: DANIELLA PEREZ ([phone])[facility] ([facility])[address] [place] [address] [place] CO2 [Moles/Vol] 22 mmol/L Low 23-31 [facility] Comment on above: Performed By: #### L AB113, [id number], LAB15 ####Food Cart Attendant: DANIELLA PEREZ ([phone])[facility] ([facility])[address] [place] [address] [place] Creatinine [Mass/Vol] 0.84 mg/dL Normal 0.72-1.25 [facility] Comment on above: Performed By: #### L AB113, [id number], LAB15 ####Food Cart Attendant: DANIELLA PEREZ ([phone])[facility])[address] [place] [address] GLOMERULAR FILTRATION RATE ML/MIN/1.73 SQ M.PREDICTED 87.1 mL/min/1.73m*2 Normal >60.0 [facility] Comment on above: Result Comment: Calc ulation based on the Chronic Kidney Disease Epidemiology Collaboration (CKD-EPI) equation refit without adjustment for race Performed By: #### L AB113, [id number], LAB15 ####Food Cart Attendant: DANIELLA PEREZ ([phone])[facility])[address] [place] [address] Glucose [Mass/Vol] 144 mg/dL High 82-115 [facility] Comment on above: Performed By: #### Verito ABAnnamaria, [id number], LAB15 ####Food Cart Attendant: DANIELAL PEREZ ([phone])[address] Potassium [Moles/Vol] 3.6 mmol/L Normal 3.5-5.1 [facility] Comment on above: Result Comment: [facility] potassium values may be up to 0.5 mmol/L lower than serum values. Performed By: #### L AB113, [id number], LAB15 ####Food Cart Attendant: DANIELLA PEREZ ([phone])[facility])[address] [place] [address] [place] Sodium [Moles/Vol] 139 mmol/L Normal 136-145 [facility] Comment on above: Performed By: #### L AB113, [id number], LAB15 ####Food Cart Attendant: DANIELLA PEREZ ([phone])[place] [address] [place] Urea nitrogen [Mass/Vol] 17 mg/dL Normal 9-23 [facility] Comment on above: Performed By: #### L AB113, [id number], LAB15 ####Food Cart Attendant: DANIELLA PEREZ ([phone])[facility] ([facility])[address] [place] [address] BLOOD GAS ARTERIALon 025 AMOUNT OF OXYGEN 2lt Normal [facility] Comment on above: Order Comment: 30 mi n after vent changes Performed By: #### L [id number] ####Food Cart Attendant: DANIELLA PEREZ ([phone])[facility] ([facility])[address] [place] [address] Base excess Calc (Bld) [Moles/Vol] -2.5000 mmol/L Normal -3.0-3.0 [facility] Comment on above: Order Comment: 30 mi n after vent changes Performed By: #### L [id number] ####Food Cart Attendant: DANIELLA PEREZ ([phone])[facility] ([facility])[address] [place] [address] CO2 [Moles/Vol] 23.1 mmol/L Normal 23.0-27.0 [facility] Comment on above: Order Comment: 30 mi n after vent changes Performed By: #### L AB76 ####Food Cart Attendant: DANIELLA PEREZ ([phone])[facility] ([facility])[address] [place] [address] HCO3 (Bld) [Moles/Vol] 22.0 mmol/L Normal 21.0-25.0 [facility] Comment on above: Order Comment: 30 mi n after vent changes Performed By: #### L [id number] ####Food Cart Attendant: DANIELLA PEREZ ([id number])[facility] ([facility])[address] [place] [address] Hemoglobin (Bld) [Mass/Vol] 8.9 g/dL Normal Screen only [facility] Comment on above: Order Comment: 30 mi n after vent changes Performed By: #### L [id number] ####Food Cart Attendant: DANIELLA PEREZ ([id number])[facility] ([facility])[address] [place] [address] OXYGEN SATURATION (%) IN ARTERIAL BLOOD 98.2 % Normal 95.0-100.0 [facility] Comment on above: Order Comment: 30 mi n after vent changes Performed By: #### L [id number] ####Food Cart Attendant: DANIELLA PEREZ ([id number])[facility] ([facility])[address] [place] [address] PCO2 ARTERIAL 36.3 mm Hg Normal >35.0-<45.0 [facility] Comment on above: Order Comment: 30 mi n after vent changes Performed By: #### L [id number] ####Food Cart Attendant: DANIELLA PEREZ ([id number])[facility] ([facility])[address] [place] [address] PH ARTERIAL 7.400 Normal 7.350-7.450 [facility] Comment on above: Order Comment: 30 mi n after vent changes Performed By: #### L [id number] ####Food Cart Attendant: DANIELLA PEREZ ([phone])[facility] ([facility])[address] [place] [address] PO2 ARTERIAL 123.3 mm Hg High 80.0-100.0 [facility] Comment on above: Order Comment: 30 mi n after vent changes Performed By: #### L [id number] ####Food Cart Attendant: DANIELLA PEREZ ([id number])[facility] ([facility])[address] [place] [address] SOURCE OF OXYGEN Nasal Cannula (LPM) Normal [facility] Comment on above: Order Comment: 30 mi n after vent changes Performed By: #### L [id number] ####Food Cart Attendant: DANIELLA PEREZ ([phone])[facility] ([facility])[address] [place] [address] AMOUNT OF OXYGEN 2 Normal [facility] Comment on above: Performed By: #### L [id number] ####Food Cart Attendant: DANIELLA PEREZ ([phone])[facility] ([facility])[address] [place] [address] Base excess Calc (Bld) [Moles/Vol] -3.0000 mmol/L Normal -3.0-3.0 [facility] Comment on above: Performed By: #### L [id number] ####Food Cart Attendant: DANIELLA PEREZ ([id number])[facility] ([facility])[address] [place] [address] [place] CO2 [Moles/Vol] 22.9 mmol/L Low 23.0-27.0 [facility] Comment on above: Performed By: #### L [id number] ####Food Cart Attendant: DANIELLA PEREZ ([id number])[facility] ([facility])[address] [place] [address] HCO3 (Bld) [Moles/Vol] 21.7 mmol/L Normal 21.0-25.0 [facility] Comment on above: Performed By: #### L [id number] ####Food Cart Attendant: DANIELLA PEREZ ([id number])[facility] ([facility])[address] [place] [address] Hemoglobin (Bld) [Mass/Vol] 7.3 g/dL Normal Screen only [facility] Comment on above: Performed By: #### L [id number] ####Food Cart Attendant: DANIELLA PEREZ ([id number])[facility] ([facility])[address] [place] [address] OXYGEN SATURATION (%) IN ARTERIAL BLOOD 97.1 % Normal 95.0-100.0 [facility] Comment on above: Performed By: #### L [id number] ####Food Cart Attendant: DANIELLA PEREZ ([id number])[facility] ([facility])[address] [place] [address] PCO2 ARTERIAL 37.3 mm Hg Normal >35.0-<45.0 [facility] Comment on above: Performed By: #### L [id number] ####Food Cart Attendant: DANIELLA PEREZ ([id number])[facility] ([facility])[address] [place] [address] PH ARTERIAL 7.383 Normal 7.350-7.450 [facility] Comment on above: Performed By: #### L [id number] ####Food Cart Attendant: DANIELLA PEREZ ([phone])[facility] ([facility])[address] [place] [address] PO2 ARTERIAL 117.0 mm Hg High 80.0-100.[address] [facility] Comment on above: Performed By: #### L [id number] ####Food Cart Attendant: DANIELLA PEREZ ([phone])[facility])[address] [place] [address] SOURCE OF OXYGEN Nasal Cannula (LPM) Normal [facility] Comment on above: Performed By: #### L [id number] ####Food Cart Attendant: DANIELLA PEREZ ([phone])[facility] ([facility])[address] [place] [address] AMOUNT OF OXYGEN 50 Normal [facility] Comment on above: Performed By: #### L [id number] ####Food Cart Attendant: DANIELLA PEREZ ([phone])[facility] ([facility])[address] [place] [address] Base excess Calc (Bld) [Moles/Vol] -6.1000 mmol/L Low -3.0-3.0 [facility] Comment on above: Performed By: #### L [id number] ####Food Cart Attendant: DANIELLA PEREZ ([phone])[facility] ([facility])[address] [place] [address] CO2 [Moles/Vol] 20.8 mmol/L Low 23.0-27.0 [facility] Comment on above: Performed By: #### L [id number] ####Food Cart Attendant: DANIELLA PEREZ ([phone])[facility] ([facility])[address] [place] [address] HCO3 (Bld) [Moles/Vol] 19.6 mmol/L Low 21.0-25.0 [facility] Comment on above: Performed By: #### L AB76 ####Food Cart Attendant: DANIELLA PEREZ ([phone])[facility])[address] [place] [address] Hemoglobin (Bld) [Mass/Vol] 8.5 g/dL Normal Screen only [facility] Comment on above: Performed By: #### L AB76 ####Food Cart Attendant: DANIELLA [id number])[facility] ([facility])[address] [place] [address] OXYGEN SATURATION (%) IN ARTERIAL BLOOD 98.5 % Normal 95.0-100.0 [facility] Comment on above: Performed By: #### L AB76 ####Food Cart Attendant: DANIELLA PEREZ ([phone])[facility] ([facility])[address] [place] [address] PCO2 ARTERIAL 39.5 mm Hg Normal >35.0-<45.[address] [facility] Comment on above: Performed By: #### L AB76 ####Food Cart Attendant: DANIELLA PEREZ ([phone])[facility] ([facility])[address] [place] [address] PH ARTERIAL 7.313 Low 7.350-7.450 [facility] Comment on above: Performed By: #### L AB76 ####Food Cart Attendant: DANIELLA PEREZ ([phone])[facility] ([facility])[address] [place] [address] PO2 ARTERIAL 177.8 mm Hg High 80.0-100.0 [facility] Comment on above: Performed By: #### L AB76 ####Food Cart Attendant: DANIELLA PEREZ ([phone])[facility])[address] [place] [address] SOURCE OF OXYGEN Ventilator Normal [facility] Comment on above: Performed By: #### L AB76 ####Food Cart Attendant: DANIELLA PEREZ ([phone])[facility])[address] [place] [address] AMOUNT OF OXYGEN 100 Normal [facility] Comment on above: Performed By: #### L AB76 ####Food Cart Attendant: DANIELLA PEREZ ([phone])[facility])[address] [place] [address] Base excess Calc (Bld) [Moles/Vol] -2.2000 mmol/L Normal -3.0-3.0 [facility] Comment on above: Performed By: #### L AB76 ####Food Cart Attendant: DANIELLA PEREZ ([phone])[facility] ([facility])[address] [place] [address] [place] CO2 [Moles/Vol] 24.6 mmol/L Normal 23.0-27.0 [facility] Comment on above: Performed By: #### L AB76 ####Food Cart Attendant: DANIELLA PEREZ ([phone])[facility] ([facility])[address] [place] [address] HCO3 (Bld) [Moles/Vol] 23.3 mmol/L Normal 21.0-25.0 [facility] Comment on above: Performed By: #### L AB76 ####Food Cart Attendant: DANIELLA PEREZ ([phone])[facility] [place] [address] Hemoglobin (Bld) [Mass/Vol] 10.2 g/dL Normal Screen only [facility] Comment on above: Performed By: #### L AB76 ####Food Cart Attendant: DANIELLA PEREZ ([phone])[facility])[address] [place] [address] OXYGEN SATURATION (%) IN ARTERIAL BLOOD 98.8 % Normal 95.0-100.0 [facility] Comment on above: Performed By: #### L AB76 ####Food Cart Attendant: DANIELLA PEREZ ([phone])[facility])[address] [place] [address] PCO2 ARTERIAL 43.0 mm Hg Normal >35.0-<45.0 [facility] Comment on above: Performed By: #### L AB76 ####Food Cart Attendant: DANIELLA PEREZ ([phone])[facility])[address] [place] [address] PH ARTERIAL 7.352 Normal 7.350-7.450 [facility] Comment on above: Performed By: #### L AB76 ####Food Cart Attendant: DANIELLA PEREZ ([phone])[facility])[address] [place] [address] PO2 ARTERIAL 387.1 mm Hg High 80.0-100.0 [facility] Comment on above: Performed By: #### L AB76 ####Food Cart Attendant: DANIELLA PEREZ ([phone])[facility] ([facility])[address] [place] [address] SOURCE OF OXYGEN Ventilator Normal [facility] Comment on above: Performed By: #### L AB76 ####Food Cart Attendant: DANIELLA PEREZ ([phone])[facility] ([facility])[address] [place] [address] Basic metabolic 1997 panelOr dered By: Ann Lopez on 05-10-2024 Anion gap [Moles/Vol] 9 mmol/L 3 - 13 mmol/L [facility] Calcium [Mass/Vol] 8.2 mg/dL Low 8.8 - 10. 0 mg/dL [facility] Chloride [Moles/Vol] 115 mmol/L High 98 - 10 7 mmol/L [facility] CO2 [Moles/Vol] 19 mmol/L Low 23 - 31 mmol/L [facility] Creatinine [Mass/Vol] 0.84 mg/dL 0.72 - 1.25 mg/dL [facility] GFR/1.73 sq M.predicted (S/P/Bld) [Vol rate/Area] 87.1 mL/min - PINF [facility] Glucose [Mass/Vol] 146 mg/dL High 82 - 115 mg/dL [facility] Interpretation and review of laboratory results Abnormal [facility] Potassium [Moles/Vol] 4.6 mmol/L 3.5 - 5.1 mmol/L [facility] Sodium [Moles/Vol] 143 mmol/L 136 - 145 mmol/L [facility] Urea nitrogen [Mass/Vol] 16 mg/dL 9 - 23 mg/dL [facility] Basic metabolic 1998 panelon 05-10-2024 Anion gap [Moles/Vol] 6 mmol/L 3 - 13 mmol/L [facility] Calcium [Mass/Vol] 9.8 mg/dL 8.8 - 10. 0 mg/dL [facility] Chloride [Moles/Vol] 111 mmol/L High 98 - 10 7 mmol/L [facility] CO2 [Moles/Vol] 22 mmol/L Low 23 - 31 mmol/L [facility] Creatinine [Mass/Vol] 0.84 mg/dL 0.72 - 1.25 mg/dL [facility] GFR/1.73 sq M.predicted (S/P/Bld) [Vol rate/Area] 87.1 mL/min - PINF [facility] Glucose [Mass/Vol] 144 mg/dL High 82 - 115 mg/dL [facility] Potassium [Moles/Vol] 3.6 mmol/L 3.5 - 5.1 mmol/L [facility] Sodium [Moles/Vol] 139 mmol/L 136 - 145 mmol/L [facility] Urea nitrogen [Mass/Vol] 17 mg/dL 9 - 23 mg/dL [facility] CALCIUM, IONIZEDon 5 CALCIUM IONIZED 4.40 mg/dL Normal 4.30-5.20 [facility] Comment on above: Performed By: #### L AB54 ####Food Cart Attendant: DANIELLA PEREZ ([phone])[facility])[address] [place] [address] PH, IONIZED CALCIUM 7.39 Normal 7.31-7.46 [facility] Comment on above: Performed By: #### L AB54 ####Food Cart Attendant: DANIELLA PEREZ ([phone])[facility])[address] [place] [address] CALCIUM IONIZED 4.40 mg/dL Normal 4.30-5.20 [facility] Comment on above: Performed By: #### L AB54 ####Food Cart Attendant: DANIELLA PEREZ ([phone])[facility])[address] [place] [address] PH, IONIZED CALCIUM 7.33 Normal 7.31-7.46 [facility] Comment on above: Performed By: #### L AB54 ####Food Cart Attendant: DANIELLA PEREZ ([phone])[facility])[address] [place] [address] CALCIUM IONIZED 5.40 mg/dL High 4.30-5.20 [facility] Comment on above: Performed By: #### L AB54 #### Food Cart Attendant: DANEILLA PEREZ ([phone]) [facility]) [address] [place] [address] PH, IONIZED CALCIUM 7.37 Normal 7.31-7.46 [facility] Comment on above: Performed By: #### L AB54 #### Food Cart Attendant: DANIELLA PEREZ ([phone]) [facility]) [address] [place] [address] CBC (HEMOGRAM)on 05-10-2024 Erythrocyte distribution width (RBC) [Ratio] 14.3 % Normal 11.5-15.0 [facility] Comment on above: Performed By: #### L [id number] ####Food Cart Attendant: DANIELLA PEREZ ([phone])[facility])[address] [place] [address] Hematocrit (Bld) [Volume fraction] 26.0 % Low 40.0-52.0 [facility] Comment on above: Performed By: #### L [id number] ####Food Cart Attendant: DANIELLA PEREZ ([phone])[facility])[address] [place] [address] Hemoglobin (Bld) [Mass/Vol] 8.6 g/dL Low 13.0-18.0 [facility] Comment on above: Performed By: #### L [id number] ####Food Cart Attendant: DANIELLA PEREZ ([phone])[facility])[address] [place] [address] MCH (RBC) [Entitic mass] 27.8 pg Normal 26.0-34.0 [facility] Comment on above: Performed By: #### L [id number] ####Food Cart Attendant: DANIELLA PEREZ ([phone])[facility])[address] [place] [address] MCHC 33.1 % Normal 30.5-36.0 [facility] Comment on above: Performed By: #### L [id number] ####Food Cart Attendant: DANIELLA PEREZ ([phone])[facility])[address] [place] [address] MCV (RBC) [Entitic vol] 84.1 fL Normal 77.0-99.0 [facility] Comment on above: Performed By: #### L AB294 ####Food Cart Attendant: DANIELLA PEREZ ([phone])[facility] ([facility])[address] [place] [address] Platelet mean volume (Bld) [Entitic vol] 9.6 fL Normal 9.0-12.7 [facility] Comment on above: Performed By: #### L [id number] ####Food Cart Attendant: DANIELLA PEREZ ([phone])[facility] ([facility])[address] [place] [address] Platelets (Bld) [#/Vol] 157 10*3/uL Normal 140-440 [facility] Comment on above: Performed By: #### L [id number] ####Food Cart Attendant: DANIELLA PEREZ ([phone])[facility] ([facility])[address] [place] [address] RBC (Bld) [#/Vol] 3.09 10*6/uL Low 4.40-5.90 [facility] Comment on above: Performed By: #### L AB294 ####Food Cart Attendant: DANIELLA PEREZ ([id number])[facility] ([facility])[address] [place] [address] WBC (Bld) [#/Vol] 15.4 10*3/uL High 3.6-10.7 [facility] Comment on above: Performed By: #### L AB294 ####Food Cart Attendant: DANIELLA PEREZ ([id number])[facility] ([facility])[address] [place] [address] Erythrocyte distribution width (RBC) [Ratio] 14.0 % Normal 11.5-15.0 [facility] Comment on above: Performed By: #### L [id number] ####Food Cart Attendant: DANIELLA PEREZ ([phone])[facility] ([facility])[address] [place] [address] Hematocrit (Bld) [Volume fraction] 24.9 % Low 40.0-52.0 [facility] Comment on above: Performed By: #### L [id number] ####Food Cart Attendant: DANIELLA PEREZ ([phone])[facility])[address] [place] [address] Hemoglobin (Bld) [Mass/Vol] 7.9 g/dL Low 13.0-18.0 [facility] Comment on above: Performed By: #### L [id number] ####Food Cart Attendant: DANIELLA PEREZ ([phone])[facility] ([facility])[address] [place] [address] MCH (RBC) [Entitic mass] 27.4 pg Normal 26.0-34.0 [facility] Comment on above: Performed By: #### L AB294 ####Food Cart Attendant: DANIELLA PEREZ ([phone])[facility])[address] [place] [address] MCHC 31.7 % Normal 30.5-36.0 [facility] Comment on above: Performed By: #### L AB294 ####Food Cart Attendant: DANIELLA PEREZ ([phone])[facility] ([facility])[address] [place] [address] MCV (RBC) [Entitic vol] 86.5 fL Normal 77.0-99.0 [facility] Comment on above: Performed By: #### L [id number] ####Food Cart Attendant: DANIELLA PEREZ ([phone])[facility])[address] [place] [address] Platelet mean volume (Bld) [Entitic vol] 9.3 fL Normal 9.0-12.7 [facility] Comment on above: Performed By: #### L [id number] ####Food Cart Attendant: DANIELLA PEREZ ([phone])[facility])[address] [place] [address] Platelets (Bld) [#/Vol] 124 10*3/uL Low 140-440 [facility] Comment on above: Performed By: #### L [id number] ####Food Cart Attendant: DANIELLA PEREZ ([phone])[facility] ([facility])[address] [place] [address] RBC (Bld) [#/Vol] 2.88 10*6/uL Low 4.40-5.90 [facility] Comment on above: Performed By: #### L [id number] ####Food Cart Attendant: DANIELLA PEREZ ([phone])[facility])[address] [place] [address] WBC (Bld) [#/Vol] 11.3 10*3/uL High 3.6-10.7 [facility] Comment on above: Performed By: #### L [id number] ####Food Cart Attendant: DANIELLA PEREZ ([phone])[facility])[address] [place] [address] CBC W Auto Differential pane l (Bld)Ordered By: Radha Strickland on 05-10-2024 Erythrocyte distribution width (RBC) [Ratio] 14.3 % 11.5 - 15.0 % [facility] Hematocrit (Bld) [Volume fraction] 22.2 % Low 40.0 - 52.0 % [facility] Hemoglobin (Bld) [Mass/Vol] 7.3 g/dL Low 13.0 - 18.0 g/dL [facility] Interpretation and review of laboratory results Abnormal [facility] MCH (RBC) [Entitic mass] 28.2 pg 26. 0 - 34.0 pg [facility] MCHC (RBC) [Mass/Vol] 32.9 % 30.5 - 36.0 % [facility] MCV (RBC) [Entitic vol] 85.7 fL 77.0 - 99.0 fL [facility] Platelet mean volume (Bld) [Entitic vol] 9.6 fL 9.0 - 12.7 fL [facility] Platelets (Bld) [#/Vol] 110 10*3/uL Low 140 - 440 10*3/uL [facility] RBC (Bld) [#/Vol] 2.59 10*6/uL Low 4.40 - 5.9 0 10*6/uL [facility] WBC (Bld) [#/Vol] 8.8 10*3/uL 3.6 - 10.7 10*3/uL [facility] CBC WITH AUTO DIFFERENTIALon 05-10-2024 Erythrocyte distribution width (RBC) [Ratio] 14.3 % Normal 11.5-15.0 [facility] Comment on above: Performed By: #### L [id number], [id number] ####Food Cart Attendant: DANIELLA PEREZ ([phone])[facility])[address] [place] [address] Hematocrit (Bld) [Volume fraction] 22.2 % Low 40.0-52.0 [facility] Comment on above: Performed By: #### L [id number], [id number] ####Food Cart Attendant: DANIELLA PEREZ ([phone])[facility])[address] [place] [address] Hemoglobin (Bld) [Mass/Vol] 7.3 g/dL Low 13.0-18.0 [facility] Comment on above: Performed By: #### Verito [id number], [id number] ####Food Cart Attendant: DANIELLA PEREZ ([id number])[address] MCH (RBC) [Entitic mass] 28.2 pg Normal 26.0-34.0 [facility] Comment on above: Performed By: #### L [id number], [id number] ####Food Cart Attendant: DANIELLA PEREZ ([id number])[facility])[address] [place] [address] MCHC 32.9 % Normal 30.5-36.0 [facility] Comment on above: Performed By: #### L [id number], [id number] ####Food Cart Attendant: DANIELLA PEREZ ([phone])[address] MCV (RBC) [Entitic vol] 85.7 fL Normal 77.0-99.0 [facility] Comment on above: Performed By: #### L [id number], [id number] ####Food Cart Attendant: DANIELLA PEREZ ([phone])[facility])[address] [place] [address] Platelet mean volume (Bld) [Entitic vol] 9.6 fL Normal 9.0-12.7 [facility] Comment on above: Performed By: #### L [id number], [id number] ####Food Cart Attendant: DANIELLA PEREZ ([phone])[facility])[address] [place] [address] Platelets (Bld) [#/Vol] 110 10*3/uL Low 140-440 [facility] Comment on above: Performed By: #### L [id number], [id number] ####Food Cart Attendant: DANIELLA PEREZ ([phone])[facility])[address] [place] [address] RBC (Bld) [#/Vol] 2.59 10*6/uL Low 4.40-5.90 [facility] Comment on above: Performed By: #### L [id number], [id number] ####Food Cart Attendant: DANIELLA PEREZ ([id number])[facility])[address] [place] [address] WBC (Bld) [#/Vol] 8.8 10*3/uL Normal 3.6-10.7 [facility] Comment on above: Performed By: #### L [id number], [id number] ####Food Cart Attendant: DANIELLA PEREZ ([phone])[facility])[address] [place] [address] CBC panel Auto (Bld)on 05-10 Erythrocyte distribution width (RBC) [Ratio] 14.3 % 11.5 - 15.0 % [facility] Hematocrit (Bld) [Volume fraction] 26 % Low 40.0 - 52.0 % [facility] Hemoglobin (Bld) [Mass/Vol] 8.6 g/dL Low 13.0 - 18.0 g/dL [facility] Interpretation and review of laboratory results Abnormal [facility] MCH (RBC) [Entitic mass] 27.8 pg 26. 0 - 34.0 pg [facility] MCHC (RBC) [Mass/Vol] 33.1 % 30.5 - 36.0 % [facility] MCV (RBC) [Entitic vol] 84.1 fL 77.0 - 99.0 fL [facility] Platelet mean volume (Bld) [Entitic vol] 9.6 fL 9.0 - 12.7 fL [facility] Platelets (Bld) [#/Vol] 157 10*3/uL 140 - 440 10*3/uL [facility] RBC (Bld) [#/Vol] 3.09 10*6/uL Low 4.40 - 5.9 0 10*6/uL [facility] WBC (Bld) [#/Vol] 15.4 10*3/uL High 3.6 - 10.7 10*3/uL [facility] Erythrocyte distribution width (RBC) [Ratio] 14 % 11.5 - 15.0 % [facility] Hematocrit (Bld) [Volume fraction] 24.9 % Low 40.0 - 52.0 % [facility] Hemoglobin (Bld) [Mass/Vol] 7.9 g/dL Low 13.0 - 18.0 g/dL [facility] Interpretation and review of laboratory results Abnormal [facility] MCH (RBC) [Entitic mass] 27.4 pg 26. 0 - 34.0 pg [facility] MCHC (RBC) [Mass/Vol] 31.7 % 30.5 - 36.0 % [facility] MCV (RBC) [Entitic vol] 86.5 fL 77.0 - 99.0 fL [facility] Platelet mean volume (Bld) [Entitic vol] 9.3 fL 9.0 - 12.7 fL [facility] Platelets (Bld) [#/Vol] 124 10*3/uL Low 140 - 440 10*3/uL [facility] RBC (Bld) [#/Vol] 2.88 10*6/uL Low 4.40 - 5.9 0 10*6/uL [facility] WBC (Bld) [#/Vol] 11.3 10*3/uL High 3.6 - 10.7 10*3/uL [facility] COMPREHENSIVE METABOLIC PANE Venkata 05-10-2024 Albumin [Mass/Vol] 3.2 g/dL Low 3.4-4.8 [facility] Comment on above: Performed By: #### L [id number], LAB17, [id number] ####Food Cart Attendant: DANIELLA PEREZ ([phone])[facility])[address] [place] [address] ALP [Catalytic activity/Vol] 45 U/L Normal 40-150 [facility] Comment on above: Performed By: #### Verito ABAnnamaria, LAB17, [id number] ####Food Cart Attendant: DANIELLA PEREZ ([phone])[facility] ([facility])[address] [place] [address] ALT [Catalytic activity/Vol] U/L Normal <40 [facility] Comment on above: Performed By: #### Verito BALBUENA, LAB17, [id number] ####Food Cart Attendant: DANIELLA PEREZ ([phone])[facility] ([facility])[address] [place] [address] Anion gap [Moles/Vol] 8 mmol/L Normal 3-13 [facility] Comment on above: Performed By: #### Verito ABAnnamaria, LAB17, [id number] ####Food Cart Attendant: DANIELLA PEREZ ([phone])[facility] ([facility])[address] [place] [address] AST [Catalytic activity/Vol] 27 U/L Normal <34 [facility] Comment on above: Performed By: #### Verito ABAnnamaria, LAB17, [id number] ####Food Cart Attendant: DANIELLA PEREZ ([phone])[facility] ([facility])[address] [place] [address] Bilirubin [Mass/Vol] 0.6 mg/dL Normal <1.2 [facility] Comment on above: Performed By: #### Verito ABAnnamaria, LAB17, [id number] ####Food Cart Attendant: DANIELLA PEREZ ([phone])[facility])[address] [place] [address] Calcium [Mass/Vol] 8.4 mg/dL Low 8.8-10.0 [facility] Comment on above: Performed By: #### Verito ABAnnamaria, LAB17, [id number] ####Food Cart Attendant: DANIELLA PEREZ ([phone])[facility] [place] [address] [place] Chloride [Moles/Vol] 112 mmol/L High 98-107 [facility] Comment on above: Performed By: #### Verito ABAnnamaria, LAB17, [id number] ####Food Cart Attendant: DANIELLA PEREZ ([phone])[facility] ([facility])[address] [place] [address] [place] CO2 [Moles/Vol] 21 mmol/L Low 23-31 [facility] Comment on above: Performed By: #### Verito BALBEUNA, LAB17, [id number] ####Food Cart Attendant: DANIELLA PEREZ ([phone])[facility] ([facility])[address] [place] [address] Creatinine [Mass/Vol] 0.89 mg/dL Normal 0.72-1.25 [facility] Comment on above: Performed By: #### Verito BALBUENA, LAB17, [id number] ####Food Cart Attendant: DANIELLA PEREZ ([phone])[facility] ([facility])[address] [place] [address] [place] GLOMERULAR FILTRATION RATE ML/MIN/1.73 SQ M.PREDICTED 85.6 mL/min/1.73m*2 Normal >60.0 [facility] Comment on above: Result Comment: Calc ulation based on the Chronic Kidney Disease Epidemiology Collaboration (CKD-EPI) equation refit without adjustment for race Performed By: #### Verito BALBUENA, LAB17, [id number] ####Food Cart Attendant: DANIELLA PEREZ ([phone])[facility] ([facility])[address] [place] [address] [place] Glucose [Mass/Vol] 205 mg/dL High 82-115 [facility] Comment on above: Performed By: #### Verito BALBUENA, LAB17, [id number] ####Food Cart Attendant: DANIELLA PEREZ ([phone])[facility] ([facility])[address] [place] [address] [place] Potassium [Moles/Vol] 3.1 mmol/L Low 3.5-5.1 [facility] Comment on above: Result Comment: [facility] potassium values may be up to 0.5 mmol/L lower than serum values. Performed By: #### L AB113, LAB17, [id number] ####Food Cart Attendant: DANIELLA PEREZ ([phone])[facility] ([facility])[address] [place] [address] Protein [Mass/Vol] 4.5 g/dL Low 6.4-8.3 [facility] Comment on above: Performed By: #### L AB113, LAB17, [id number] ####Food Cart Attendant: DANIELLA PEREZ ([phone])[facility] ([facility])[address] [place] [address] Sodium [Moles/Vol] 141 mmol/L Normal 136-145 [facility] Comment on above: Performed By: #### L AB113, LAB17, [id number] ####Food Cart Attendant: DANIELLA PEREZ ([phone])[facility] ([facility])[address] [place] [address] Urea nitrogen [Mass/Vol] 17 mg/dL Normal 9-23 [facility] [facility] Comment on above: Performed By: #### L [id number], [id number], [id number] ####Food Cart Attendant: DANIELLA PEREZ ([phone])[facility])[address] [place] [address] Calcium.ionized [Moles/Vol]o n 05-10-2024 Calcium.ionized (Bld) [Moles/Vol] 4.4 mg/dL 4.30 - 5.20 mg/dL [facility] Interpretation and review of laboratory results Normal [facility] PH, IONIZED CALCIUM 7.39 7.31 - 7.46 [facility] Calcium.ionized (Bld) [Moles/Vol] 4.4 mg/dL 4.30 - 5.20 mg/dL [facility] Interpretation and review of laboratory results Normal [facility] PH, IONIZED CALCIUM 7.33 7.31 - 7.46 [facility] Calcium.ionized [Moles/Vol]O rdered By: Brandt Gilmore on 05-10-2024 Calcium.ionized (Bld) [Moles/Vol] 5.4 mg/dL High 4.30 - 5.20 mg/dL [facility] Interpretation and review of laboratory results Abnormal [facility] PH, IONIZED CALCIUM 7.37 7.31 - 7.46 [facility] Comprehensive metabolic 1998 panelon 05-10-2024 Albumin [Mass/Vol] 3.2 g/dL Low 3.4 - 4.8 g/dL [facility] ALP [Catalytic activity/Vol] 45 U/L 40 - 150 U/L [facility] ALT [Catalytic activity/Vol] U/L NINF - 40 U/L [facility] Anion gap [Moles/Vol] 8 mmol/L 3 - 13 mmol/L [facility] AST [Catalytic activity/Vol] 27 U/L NINF - 34 U/L [facility] Bilirubin [Mass/Vol] 0.6 mg/dL NINF - 1.2 mg/dL [facility] Calcium [Mass/Vol] 8.4 mg/dL Low 8.8 - 10. 0 mg/dL [facility] Chloride [Moles/Vol] 112 mmol/L High 98 - 10 7 mmol/L [facility] CO2 [Moles/Vol] 21 mmol/L Low 23 - 31 mmol/L [facility] Creatinine [Mass/Vol] 0.89 mg/dL 0.72 - 1.25 mg/dL [facility] GFR/1.73 sq M.predicted (S/P/Bld) [Vol rate/Area] 85.6 mL/min - PINF [facility] Glucose [Mass/Vol] 205 mg/dL High 82 - 115 mg/dL [facility] Interpretation and review of laboratory results Abnormal [facility] Potassium [Moles/Vol] 3.1 mmol/L Low 3.5 - 5.1 mmol/L [facility] Protein [Mass/Vol] 4.5 g/dL Low 6.4 - 8.3 g/dL [facility] Sodium [Moles/Vol] 141 mmol/L 136 - 145 mmol/L [facility] Urea nitrogen [Mass/Vol] 17 mg/dL 9 - 23 mg/dL [facility] Consulton 05-10-2024 Consult - Attestation signed by Lilian Cisse MD at 05/10/2024 1:48 PM I have personally performed a face to face diagnostic evaluation on this patient. 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 Room/Bed: OR/NONE Admission Date: 05/10/2024 Visit Date: 05/10/2024 Reason for Endocrine Consult: post op heart Provider/Team Requesting Consult: CTS PCP: KELSEY MOON MD Outpt [place]: No ASSESSMENT: DM2 with hyperglycemia and retirement [...] (GLUCOPHAGE) 1,0 (more content not included)... Normal [facility] Consult - Attestation signed by Luz Hough DO at 05/10/2024 1:52 PM I have personally performed a [id number] diagnostic evaluation on this patient on date of service 05/10/24. History, labs, imaging studies, and electronic medical record have been reviewed by me. This note documented by the []greenhouse laborer [x]JULIO CESAR reflects my history, exam, and [...] set to back up -monitor hemodynamics via [place]. Currently on low dose epi gtt [...] 40 minutes so far today, excluding procedures. [facility]: Critical Care Consultation Note Date: [...] Calcium Carb-Cholecalciferol (more content not included)... Normal [facility] FIBRINOGENon 05-10-2024 FIBRINOGEN 225 mg/dL Normal 200-400 [facility] Comment on above: Performed By: #### L [id number], [id number] ####Food Cart Attendant: DANIELLA PEREZ ([phone])[facility] ([address] Fibrinogen Coag (PPP) [Mass/ Vol]on 05-10-2024 Interpretation and review of laboratory results Normal [facility] Laboratory - Chemistry and C hemistry - challengeon 05-10-2024 Glucose [Mass/Vol] 160 mg/dL High 70 - 100 mg/dL [facility] Glucose [Mass/Vol] 166 mg/dL High 70 - 100 mg/dL [facility] Glucose [Mass/Vol] 166 mg/dL High 70 - 100 mg/dL [facility] Glucose [Mass/Vol] 160 mg/dL High 70 - 100 mg/dL [facility] Glucose [Mass/Vol] 147 mg/dL High 70 - 100 mg/dL [facility] Glucose [Mass/Vol] 147 mg/dL High 70 - 100 mg/dL [facility] Base excess Calc (Bld) [Moles/Vol] -3 mmol/L -3.0 - 3.0 mmol/L [facility] CO2 (Bld) [Partial pressure] 37.3 mm[Hg] - PINF [facility] CO2 [Moles/Vol] 22.9 mmol/L Low 23.0 - 27.0 mmol/L [facility] HCO3 (Bld) [Moles/Vol] 21.7 mmol/L 21.0 - 25.0 mmol/L [facility] Oxygen (Bld) [Partial pressure] 117 mm[Hg] High [facility] pH (Bld) 7.383 [pH] 7.350 - 7.450 [facility] Glucose [Mass/Vol] 165 mg/dL High 70 - 100 mg/dL [facility] Glucose [Mass/Vol] 180 mg/dL High 70 - 100 mg/dL [facility] Glucose [Mass/Vol] 172 mg/dL High 70 - 100 mg/dL [facility] Magnesium [Mass/Vol] 2.6 mg/dL 1.6 - 2 .6 mg/dL [facility] Base excess Calc (Bld) [Moles/Vol] -6.1000 mmol/L Low -3.0 - 3.0 mmol/L [facility] CO2 (Bld) [Partial pressure] 39.5 mm[Hg] - PINF [facility] CO2 [Moles/Vol] 20.8 mmol/L Low 23.0 - 27.0 mmol/L [facility] HCO3 (Bld) [Moles/Vol] 19.6 mmol/L Low 21.0 - 25.0 mmol/L [facility] Oxygen (Bld) [Partial pressure] 177.8 mm[Hg] High [facility] pH (Bld) 7.313 [pH] Low 7.350 - 7.450 [facility] Glucose [Mass/Vol] 172 mg/dL High 70 - 100 mg/dL [facility] Glucose [Mass/Vol] 153 mg/dL High 70 - 100 mg/dL [facility] Glucose [Mass/Vol] 135 mg/dL High 70 - 100 mg/dL [facility] Magnesium [Mass/Vol] 3.4 mg/dL High 1.6 - 2 .6 mg/dL [facility] Base excess Calc (Bld) [Moles/Vol] -2.2000 mmol/L -3.0 - 3.0 mmol/L [facility] CO2 (Bld) [Partial pressure] 43 mm[Hg] - PINF [facility] CO2 [Moles/Vol] 24.6 mmol/L 23.0 - 27.0 mmol/L [facility] HCO3 (Bld) [Moles/Vol] 23.3 mmol/L 21.0 - 25.0 mmol/L [facility] Oxygen (Bld) [Partial pressure] 387.1 mm[Hg] High [facility] pH (Bld) 7.352 [pH] 7.350 - 7.450 [facility] Glucose [Mass/Vol] 114 mg/dL High 70 - 100 mg/dL [facility] Laboratory - Chemistry and C hemistry - challengeOrdered By: Keisha Linton on 05-10-2024 Base excess Calc (Bld) [Moles/Vol] -2.5000 mmol/L -3.0 - 3.0 mmol/L [facility] CO2 (Bld) [Partial pressure] 36.3 mm[Hg] - PINF [facility] CO2 [Moles/Vol] 23.1 mmol/L 23.0 - 27.0 mmol/L [facility] HCO3 (Bld) [Moles/Vol] 22 mmol/L 21.0 - 25.0 mmol/L [facility] Oxygen (Bld) [Partial pressure] 123.3 mm[Hg] High [facility] pH (Bld) 7.4 [pH] 7.350 - 7.450 [facility] Laboratory - Coagulationon 0 05-10-2024 aPTT Coag (PPP) [Time] 27.6 s 20.0 - 30.5 s [facility] Fibrinogen Coag (PPP) [Mass/Vol] 225 mg/dL 200 - 400 mg/dL [facility] INR Coag (PPP) [Relative time] 1.3 {INR} High 0.9 - 1.1 [facility] PT Coag (Bld) [Time] 14.3 s High 9.0 - 1 2.0 s [facility] Laboratory - Hematology and Cell countsOrdered By: Keisha Linton on 05-10-2024 Hemoglobin (Bld) [Mass/Vol] 8.9 g/dL Screen only [facility] Laboratory - Hematology and Cell countson 05-10-2024 Band form neutrophils (Bld) [#/Vol] 0.1 10*3/uL High NINF - 0.0 10*3/uL [facility] Band form neutrophils/100 WBC (Bld) 1 % High NINF - 0 % [facility] Lymphocytes (Bld) [#/Vol] 0.7 10*3/uL Low 1.0 - 4.3 10*3/uL [facility] Lymphocytes/100 WBC (Bld) 8 % Low 15 - 45 % [facility] Monocytes (Bld) [#/Vol] 0.7 10*3/uL 0.0 - 0.9 10*3/uL [facility] Monocytes/100 WBC (Bld) 8 % 5 - 13 % [facility] Neutrophils (Bld) [#/Vol] 7.4 10*3/uL 1.8 - 7.5 10*3/uL [facility] Ovalocytes LM Ql (Bld) Slight Abnormal (none) [facility] Poikilocytosis LM Ql (Bld) Slight Abnormal (none) [facility] RBC morphology finding Nom (Bld) abnormal [facility] Segmented neutrophils/100 WBC (Bld) 83 % High 38 - 82 % [facility] Hemoglobin (Bld) [Mass/Vol] 7.3 g/dL Screen only [facility] Hemoglobin (Bld) [Mass/Vol] 8.5 g/dL Screen only [facility] Hemoglobin (Bld) [Mass/Vol] 10.2 g/dL Screen only [facility] MAGNESIUMon 05-10-2024 Magnesium [Mass/Vol] 2.6 mg/dL Normal 1.6-2.6 [facility] Comment on above: Result Comment: JEAN CARLOS Nuñez COMMENTS: Higher values can be expected in females during menses. Performed By: #### L [id number], LAB17, [id number] ####Food Cart Attendant: DANIELLA PEREZ ([phone])[facility])[address] [place] [address] Magnesium [Mass/Vol] 3.4 mg/dL High 1.6-2.6 [facility] Comment on above: Result Comment: JEAN CARLOS Nuñez COMMENTS: Higher values can be expected in females during menses. Performed By: #### L [id number], [id number], [id number] ####Food Cart Attendant: DANIELLA PEREZ ([phone])[facility])[address] [place] [address] MANUAL DIFFERENTIAL (CELLAVI CAMILO)on 05-10-2024 BAND NEUTROPHILS TOTAL PER COUNTED LEUKOCYTES BY MANUAL COUNT 1 Normal [facility] Comment on above: Performed By: #### L [id number], [id number] ####Food Cart Attendant: DANIELLA PEREZ ([phone])[facility])[address] [place] [address] BANDS (10*3/UL) IN BLOOD-CELLAVISION 0.1 10*3/uL High <=0.0 [facility] Comment on above: Performed By: #### L [id number], [id number] ####Food Cart Attendant: DANIELLA PEREZ ([phone])[facility] [place] [address] [place] BASOPHILS TOTAL PER COUNTED LEUKOCYTES BY MANUAL COUNT [facility] Comment on above: Performed By: #### L [id number], [id number] ####Food Cart Attendant: DANIELLA PEREZ ([phone])[facility] ([facility])[address] [place] [address] [place] BLASTS TOTAL PER COUNTED LEUKOCYTES BY MANUAL COUNT [facility] Comment on above: Performed By: #### L [id number], [id number] ####Food Cart Attendant: DANIELLA PEREZ ([phone])[facility] ([facility])[address] [place] [address] EOSINOPHILS TOTAL PER COUNTED LEUKOCYTES BY MANUAL COUNT [facility] Comment on above: Performed By: #### L [id number], [id number] ####Food Cart Attendant: DANIELLA PEREZ ([phone])[facility] ([facility])[address] [place] [address] [place] LYMPHOCYTES (10*3/UL) IN BLOOD-CELLAVISION 0.7 10*3/uL Low 1.0-4.3 [facility] Comment on above: Performed By: #### L [id number], [id number] ####Food Cart Attendant: DANIELLA PEREZ ([phone])[facility] ([facility])[address] [place] [address] [place] LYMPHOCYTES TOTAL PER COUNTED LEUKOCYTES BY MANUAL COUNT 8 Normal [facility] Comment on above: Performed By: #### L [id number], [id number] ####Food Cart Attendant: DANIELLA PEREZ ([phone])[facility] ([facility])[address] [place] [address] [place] LYMPHOCYTES/100 LEUKOCYTES IN BLOOD-CELLAVISION 8 % Low 15-45 [facility] Comment on above: Performed By: #### L [id number], [id number] ####Food Cart Attendant: DANIELLA PEERZ ([phone])[facility] ([facility])[address] [place] [address] [place] METAMYELOCYTES TOTAL PER COUNTED LEUKOCYTES BY MANUAL COUNT Normal [facility] Comment on above: Performed By: #### L [id number], [id number] ####Food Cart Attendant: DANIELLA PEREZ ([phone])[facility] ([facility])[address] [place] [address] [place] MONOCYTES (10*3/UL) IN BLOOD-CELLAVISION 0.7 10*3/uL Normal 0.0-0.9 [facility] Comment on above: Performed By: #### L [id number], [id number] ####Food Cart Attendant: DANIELLA PEREZ ([phone])[facility] ([facility])[address] [place] [address] [place] MONOCYTES TOTAL PER COUNTED LEUKOCYTES BY MANUAL COUNT 8 Normal [facility] Comment on above: Performed By: #### L [id number], [id number] ####Food Cart Attendant: DANIELLA PEREZ ([phone])[facility] ([facility])[address] [place] [address] [place] MONOCYTES/100 LEUKOCYTES IN BLOOD-TALIB 8 % Normal 5-13 [facility] Comment on above: Performed By: #### L [id number], [id number] ####Food Cart Attendant: DANIELLA PEREZ ([phone])[facility] ([facility])[address] [place] [address] [place] MYELOCYTES COUNTED BY MANUAL COUNT [facility] Comment on above: Performed By: #### L [id number], [id number] ####Food Cart Attendant: DANIELLA PEREZ ([phone])[facility] ([facility])[address] [place] [address] [place] NEUTROPHILS BAND FORM/100 LEUKOCYTES IN BLOOD-CELLAVISI 1 % High <=0 [facility] Comment on above: Performed By: #### L [id number], [id number] ####Food Cart Attendant: DANIELLA PEREZ ([phone])[facility] ([facility])[address] [place] [address] [place] NEUTROPHILS TOTAL PER COUNTED LEUKOCYTES BY MANUAL COUNT 81 Normal [facility] Comment on above: Performed By: #### L [id number], [id number] ####Food Cart Attendant: DANIELLA PEREZ ([phone])[facility] ([facility])[address] [place] [address] [place] OVALOCYTES PRESENCE IN BLOOD BY LIGHT MICROSCOPY Slight Abnormal (none) [facility] Comment on above: Performed By: #### L [id number], [id number] ####Food Cart Attendant: DANIELLA PEREZ ([phone])[facility])[address] [place] [address] [place] POIKILOCYTOSIS (PRESENCE) IN BLOOD BY LIGHT MICROSCOPY Slight Abnormal (none) [facility] Comment on above: Performed By: #### L [id number], [id number] ####Food Cart Attendant: DANIELLA PEREZ ([phone])[facility])[address] [place] [address] [place] PROMYELOCYTES TOTAL PER COUNTED LEUKOCYTES BY MANUAL COUNT Normal [facility] Comment on above: Performed By: #### L [id number], [id number] ####Food Cart Attendant: DANIELLA PEREZ ([phone])[facility])[address] [place] [address] [place] RBC MORPHOLOGY IN BLOOD abnormal Normal [facility] Comment on above: Performed By: #### L [id number], [id number] ####Food Cart Attendant: DANIELLA PEREZ ([phone])[facility] ([facility])[address] [place] [address] [place] SEGMENTED NEUTROPHILS (10*3/UL) IN BLOOD-CELLAVISION 7.4 10*3/uL Normal 1.8-7.5 [facility] Comment on above: Performed By: #### L [id number], [id number] ####Food Cart Attendant: DANIELLA PEREZ ([phone])[facility])[address] [place] [address] [place] SEGMENTED NEUTROPHILS/100 LEUKOCYTES-CE 83 % High 38-82 [facility] Comment on above: Performed By: #### L [id number], [id number] ####Food Cart Attendant: DANIELLA PEREZ ([phone])[facility] ([facility])[address] [place] [address] UNCLASSIFIED CELLS TOTAL PER COUNTED LEUKOCYTES BY MANUAL COUNT Normal [facility] Comment on above: Performed By: #### L [id number], [id number] ####Food Cart Attendant: DANIELLA PEREZ ([phone])[facility])[address] [place] [address] VARIANT LYMPHOCYTES TOTAL PER COUNTED LEUKOCYTES BY MANUAL COUNT Normal [facility] Comment on above: Performed By: #### L [id number], [id number] ####Food Cart Attendant: DANIELLA PEREZ ([phone])[facility])[address] [place] [address] Magnesium [Mass/Vol]on 05-10 [facility] No Panel Informationon 05-10 Interpretation and review of laboratory results Abnormal [facility] Interpretation and review of laboratory results Abnormal [facility] Blood Expiration Date [id number] [facility] Crossmatch interpretation COMP [facility] Dispense Status Transfused [facility] lt Product Blood Type 5100 [facility] PRODUCT CODE [id number] [facility] ABO O [facility] Number [id number] [facility] RH Positive [facility] Unit Volume 300 mL [facility] Interpretation and review of laboratory results Abnormal [facility] Bands Manual 1 [facility] Interpretation and review of laboratory results Abnormal [facility] Lymphocytes Manual 8 [facility] Monocytes Manual 8 [facility] Neutrophils Manual 81 [facility] Interpretation and review of laboratory results Abnormal [facility] Interpretation and review of laboratory results Abnormal [facility] Interpretation and review of laboratory results Abnormal [facility] Amount Of Oxygen [address] [facility] Interpretation and review of laboratory results Abnormal [facility] Source Of Oxygen Nasal Cannula (LPM) [facility] Interpretation and review of laboratory results Abnormal [facility] Interpretation and review of laboratory results Abnormal [facility] Interpretation and review of laboratory results Abnormal [facility] Interpretation and review of laboratory results Normal [facility] Amount Of Oxygen 50 [facility] Interpretation and review of laboratory results Abnormal [facility] Source Of Oxygen Ventilator [facility] Interpretation and review of laboratory results Abnormal [facility] Interpretation and review of laboratory results Abnormal [facility] Interpretation and review of laboratory results Abnormal [facility] Interpretation and review of laboratory results Abnormal [facility] Interpretation and review of laboratory results Abnormal [facility] Amount Of Oxygen [address] [facility] Interpretation and review of laboratory results Abnormal [facility] Source Of Oxygen Ventilator [facility] Interpretation and review of laboratory results Abnormal [facility] No Panel InformationOrdered By: Keisha Linton on 05-10-2024 Amount Of Oxygen 2lt [facility] Interpretation and review of laboratory results Abnormal [facility] Source Of Oxygen Nasal Cannula (LPM) [facility] Op Noteon 05-10-2024 Op Note [...] Intraoperative transesophageal echocardiography Surgeon: Daysi Velasco MD Competitive Intelligence Manager(s): [] Yesenia Taylor [] Gladis Melgar [x] [...] protected. An appropriate timeout was conducted. [facility] [place] [facility] Bypass: A LEFT [...] right a (more content not included)... Normal [facility] PHOSPHORUSon 05-10-2024 Phosphate [Mass/Vol] 4.0 mg/dL Normal 2.3-4.7 [facility] Comment on above: Performed By: #### L [id number], LAB17, [id number] ####Food Cart Attendant: DANIELLA PEREZ ([phone])[address] Phosphate [Mass/Vol] 3.4 mg/dL Normal 2.3-4.7 [facility] Comment on above: Performed By: #### L [id number], [id number], LAB15 ####Food Cart Attendant: DANIELLA PEREZ ([phone])[address] PROTIME AND APTTon aPTT Coag (Bld) [Time] 27.6 s Normal 20.0-30.5 [facility] Comment on above: Performed By: #### L [id number], [id number] ####Food Cart Attendant: DANIELLA PEREZ ([phone])[address] INR Coag (PPP) [Relative time] 1.3 {INR} High 0.9-1.1 [facility] Comment on above: Result Comment: Poli [...] prevent Myocardial Infarction Performed By: #### L [id number], [id number] ####Food Cart Attendant: DANIELLA PEREZ ([phone])[facility])[address] [place] [address] PT Coag (PPP) [Time] 14.3 s High 9.0-12.0 [facility] Comment on above: Performed By: #### L [id number], [id number] ####Food Cart Attendant: DANIELLA PEREZ ([phone])[facility] ([place] [facility])[address] [place] [address] Phosphate [Moles/Vol]on 04-22 Phosphate [Mass/Vol] 4 mg/dL 2.3 - 4 .7 mg/dL [facility] Interpretation and review of laboratory results Normal [facility] Phosphate [Mass/Vol] 3.4 mg/dL 2.3 - 4 .7 mg/dL [facility] Progress Noteon 05-10-2024 Progress Note Transfusion Medicine Resident Review Note Product type: 1 unit pRBC, O+ Reason for Review: Hemoglobin >7.0 g/dL Indications for Transfusion: 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 Please contact the blood bank if there are any issues receiving the product for transfusion at *[id number] ([facility]) or *[id number] ([facility]) Comment: Close clinical monitoring is indicated to avoid transfusion associated circulatory overload (TACO) during transfusion of patients with impaired cardiac function. Strategies such as slower infusion rates (1 ml/kg body weight/hour), decreasing transfusion volume, and prophylactic use of diuretics for volume reduction may reduce the risk in clinically appropriate patients. Normal [facility] Progress Note Extubated to 5 L NC Normal [facility] US Heart Transesophagealon 0 05-10-2024 CV CPACS HEMO US Heart TransesophagealOrde red By: Jo Saenz on 05-10-2024 [facility] Work Phone: XR CHEST 1 VIEWon 05-10-2024 XR CHEST 1 VIEW Patient Name: FARHANA THRASHER : [address] 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 Please bring your [facility] Surgical folder and medication list with you day of surgery. We encourage you to write down any questions you may have for the surgeon, anesthesiologist, or other members of the surgical team and bring it with you the day of surgery. Please bring photo ID and insurance information. Normal [facility] [id number] 05-04-2024 [id number] Patient instructed t o bring CPAP machine and mask with him on the day of surgery. Patient understood. Normal [facility] [id number] Labs obtained on 1 attempt with 22 gauge needle at [facility] site. Patient tolerated well, site benign. Normal [facility] BLOOD TYPE AND SCREEN GELon 05-04-2024 ABO GROUPING O Normal [facility] Comment on above: Performed By: #### L [id number] ####Food Cart Attendant: DANIELLA PEREZ ([phone])[facility] BLOOD BANK ([facility])[address] [place] [address] RH TYPE IN BLOOD Positive Normal [facility] Comment on above: Performed By: #### L [id number] ####Food Cart Attendant: DANIELLA PEREZ ([id number])[facility] BLOOD [facility] ([address] CBC (HEMOGRAM)on 05-04-2024 Erythrocyte distribution width (RBC) [Ratio] 14.1 % Normal 11.5-15.0 [facility] Comment on above: Performed By: #### L [id number] ####Food Cart Attendant: DANIELLA PEREZ ([phone])[facility])[address] [place] [address] Hematocrit (Bld) [Volume fraction] 42.3 % Normal 40.0-52.0 [facility] Comment on above: Performed By: #### L AB294 ####Food Cart Attendant: DANIELLA PEREZ ([id number])[address] Hemoglobin (Bld) [Mass/Vol] 13.4 g/dL Normal 13.0-18.0 [facility] Comment on above: Performed By: #### L [id number] ####Food Cart Attendant: DANIELLA PEREZ ([id number])[facility] ([facility])[address] [place] [address] MCH (RBC) [Entitic mass] 26.9 pg Normal 26.0-34.0 [facility] Comment on above: Performed By: #### L AB294 ####Food Cart Attendant: DANIELLA PEREZ ([phone])[facility])[address] [place] [address] MCHC 31.7 % Normal 30.5-36.0 [facility] Comment on above: Performed By: #### L AB294 ####Food Cart Attendant: DANIELLA PEREZ ([id number])[facility])[address] [place] [address] MCV (RBC) [Entitic vol] 84.8 fL Normal 77.0-99.0 [facility] Comment on above: Performed By: #### L AB294 ####Food Cart Attendant: DANIELLA PEREZ ([id number])[facility])[address] [place] [address] Platelet mean volume (Bld) [Entitic vol] 9.6 fL Normal 9.0-12.7 [facility] Comment on above: Performed By: #### L AB294 ####Food Cart Attendant: DANIELLA PEREZ ([id number])[facility] ([facility])[address] [place] [address] Platelets (Bld) [#/Vol] 199 10*3/uL Normal 140-440 [facility] Comment on above: Performed By: #### L AB294 ####Food Cart Attendant: DANIELLA PEREZ ([id number])[facility] ([facility])[address] [place] [address] RBC (Bld) [#/Vol] 4.99 10*6/uL Normal 4.40-5.90 [facility] Comment on above: Performed By: #### L AB294 ####Food Cart Attendant: DANIELLA PEREZ ([id number])[facility])[address] [place] [address] WBC (Bld) [#/Vol] 5.2 10*3/uL Normal 3.6-10.7 [facility] Comment on above: Performed By: #### L AB294 ####Food Cart Attendant: DANIELLA PEREZ ([id number])[facility])[address] [place] [address] COMPLETE URINALYSISon 2024 BILIRUBIN, TOTAL PRESENCE IN URINE Negative Normal Negative [facility] Comment on above: Performed By: #### L AB347 ####Food Cart Attendant: DANIELLA PEREZ ([phone])[facility])[address] [place] [address] Clarity (U) Clear Normal Clear [facility] Comment on above: Performed By: #### L AB347 ####Food Cart Attendant: DANIELLA PEREZ ([id number])[facility])[address] [place] [address] Color (U) Colorless Normal Lt. Yellow [facility] Comment on above: Performed By: #### L AB347 ####Food Cart Attendant: DANIELLA PEREZ ([id number])[facility] ([facility])[address] [place] [address] GLUCOSE (MG/DL) IN URINE 1,000 mg/dL Abnormal Nor mal (<70) [facility] Comment on above: Performed By: #### L AB347 ####Food Cart Attendant: DANIELLA PEREZ ([id number])[facility] ([facility])[address] [place] [address] HEMOGLOBIN PRESENCE IN URINE Negative Normal Negative [facility] Comment on above: Performed By: #### L AB347 ####Food Cart Attendant: DANIELLA PEREZ ([id number])[facility] ([facility])[address] [place] [address] Ketones Ql (U) Negative Normal Negative [facility] Comment on above: Performed By: #### L AB347 ####Food Cart Attendant: DANIELLA PEREZ ([id number])[facility] ([facility])[address] [place] [address] LEUKOCYTE ESTERASE PRESENCE IN URINE BY TEST STRIP Negative Normal Negative [facility] Comment on above: Performed By: #### L AB347 ####Food Cart Attendant: DANIELLA PEREZ ([id number])[facility] ([facility])[address] [place] [address] NITRITE PRESENCE IN URINE Negative Normal Negative [facility] Comment on above: Performed By: #### L AB347 ####Food Cart Attendant: DANIELLA PEREZ ([id number])[facility] ([facility])[address] [place] [address] pH (U) 5.5 [pH] Normal 5.0-8.0 [facility] Comment on above: Performed By: #### L AB347 ####Food Cart Attendant: DANIELLA PEREZ ([id number])[facility])[address] [place] [address] Protein (U) [Mass/Vol] Negative Normal Negative [facility] Comment on above: Performed By: #### L AB347 ####Food Cart Attendant: DANIELLA PEREZ ([id number])[facility])[address] [place] [address] Specific gravity (U) [Rel density] 1.008 Normal 1.005-1.030 [facility] Comment on above: Performed By: #### L AB347 ####Food Cart Attendant: DANIELLA PEREZ ([phone])[facility])[address] [place] [address] UROBILINOGEN (MG/DL) IN URINE Normal Normal Normal (0-1) [facility] Comment on above: Performed By: #### L AB347 ####Food Cart Attendant: DANIELLA PEREZ ([phone])[facility])[address] [place] [address] COMPREHENSIVE METABOLIC PANE Venkata 05-04-2024 Albumin [Mass/Vol] 3.8 g/dL Normal 3.4-4.8 [facility] Comment on above: Performed By: #### L AB17 ####Food Cart Attendant: DANIELLA PEREZ ([id number])[facility] ([facility])[address] [place] [address] ALP [Catalytic activity/Vol] 86 U/L Normal 40-150 [facility] Comment on above: Performed By: #### L AB17 ####Food Cart Attendant: DANIELLA PEREZ ([id number])[facility])[address] [place] [address] ALT [Catalytic activity/Vol] 12 U/L Normal <40 [facility] Comment on above: Performed By: #### L AB17 ####Food Cart Attendant: DANIELLA PEREZ ([id number])[facility])[address] [place] [address] Anion gap [Moles/Vol] 9 mmol/L Normal 3-13 [facility] Comment on above: Performed By: #### L AB17 ####Food Cart Attendant: DANIELLA PEREZ ([id number])[facility])[address] [place] [address] AST [Catalytic activity/Vol] 19 U/L Normal <34 [facility] Comment on above: Performed By: #### L AB17 ####Food Cart Attendant: DANIELLA PEREZ ([phone])[facility] ([facility])[address] [place] [address] Bilirubin [Mass/Vol] 0.4 mg/dL Normal <1.2 [facility] Comment on above: Performed By: #### L AB17 ####Food Cart Attendant: DANIELLA PEREZ ([id number])[facility] ([facility])[address] [place] [address] Calcium [Mass/Vol] 9.6 mg/dL Normal 8.8-10.0 [facility] Comment on above: Performed By: #### L AB17 ####Food Cart Attendant: DANIELLA PEREZ ([id number])[facility])[address] [place] [address] Chloride [Moles/Vol] 103 mmol/L Normal 98-107 [facility] Comment on above: Performed By: #### L AB17 ####Food Cart Attendant: DANIELLA PEREZ ([id number])[facility] ([facility])[address] [place] [address] CO2 [Moles/Vol] 25 mmol/L Normal 23-31 [facility] Comment on above: Performed By: #### L AB17 ####Food Cart Attendant: DANIELLA PEREZ ([id number])[facility] ([facility])[address] [place] [address] Creatinine [Mass/Vol] 0.94 mg/dL Normal 0.72-1.25 [facility] Comment on above: Performed By: #### L AB17 ####Food Cart Attendant: DANIELLA PEREZ ([id number])[facility] ([facility])[address] [place] [address] [place] GLOMERULAR FILTRATION RATE ML/MIN/1.73 SQ M.PREDICTED 80.9 mL/min/1.73m*2 Normal >60.0 [facility] Comment on above: Result Comment: Calc ulation based on the Chronic Kidney Disease Epidemiology Collaboration (CKD-EPI) equation refit without adjustment for race Performed By: #### L AB17 ####Food Cart Attendant: DANIELLA PEREZ ([id number])[facility] ([facility])[address] [place] [address] [place] Glucose [Mass/Vol] 90 mg/dL Normal 82-115 [facility] Comment on above: Performed By: #### L AB17 ####Food Cart Attendant: DANIELLA PEREZ ([phone])[facility])[address] [place] [address] [place] Potassium [Moles/Vol] 3.8 mmol/L Normal 3.5-5.1 [facility] Comment on above: Result Comment: [facility] potassium values may be up to 0.5 mmol/L lower than serum values. Performed By: #### L AB17 ####Food Cart Attendant: DANIELLA PEREZ ([id number])[facility] ([facility])[address] [place] [address] Protein [Mass/Vol] 6.7 g/dL Normal 6.4-8.3 [facility] Comment on above: Performed By: #### L AB17 ####Food Cart Attendant: DANIELLA PEREZ ([phone])[facility] ([facility])[address] [place] [address] [place] Sodium [Moles/Vol] 137 mmol/L Normal 136-145 [facility] Comment on above: Performed By: #### L AB17 ####Food Cart Attendant: DANIELLA PEREZ ([phone])[facility])[address] [place] [address] [place] Urea nitrogen [Mass/Vol] 21 mg/dL Normal 9-23 [facility] Comment on above: Performed By: #### L AB17 ####Food Cart Attendant: DANIELLA PEREZ ([phone])[facility])[address] [place] [address] [place] HEMOGLOBIN A1Con 05-04-2024 Glucose [Mass/Vol] 166 mg/dL Normal [facility] Comment on above: Result Comment: ORDE R COMMENTS: HbA1c values of 5.7-6.4 percent indicate an increased risk for developing diabetes mellitus. HbA1c values greater than or equal to 6.5 percent are diagnostic of diabetes mellitus. For diagnosis of diabetes in individuals without unequivocal hyperglycemia, results should be confirmed by repeat testing. Performed By: #### L AB90 ####Food Cart Attendant: DANIELLA PEREZ ([id number])[facility])[address] [place] [address] HEMOGLOBIN A1C 7.4 %HbA1C High <5.7 [facility] Comment on above: Result Comment: Norm al less than 5.7% Prediabetes 5.7% to 6.4% Diabetes 6.5% or higher --HgbA1C levels may not be accurate in patients who have renal disease, received recent blood transfusions, are anemic, or who have dyshemoglobinemia. Performed By: #### L AB90 ####Food Cart Attendant: DANIELLA PEREZ ([phone])[address] MRSA BY PCRon 05-04-2024 MRSA BY [...] modified and its performance characteristics determined by [facility]. The [place]. [place]. Food and Drug Administration has not approved or cleared this test; however, FDA clearance or approval is not currently required for clinical use. The results are not intended to be used as the sole means for clinical diagnosis or patient management decisions. Normal [facility] Comment on above: Performed By: #### L [id number] #### Food Cart Attendant: DANIELLA PEREZ ([id number]) [address] PROTIME AND APTTon aPTT Coag (Bld) [Time] 31.6 s High 20.0-30.5 [facility] Comment on above: Performed By: #### L [id number] ####Food Cart Attendant: DANIELLA PEREZ ([id number])[facility] ([address] INR Coag (PPP) [Relative time] 1.1 {INR} Normal 0.9-1.1 [facility] Comment on above: Result Comment: Poli [...] prevent Myocardial Infarction Performed By: #### L [id number] ####Food Cart Attendant: DANIELLA PEREZ ([id number])[facility])[address] [place] [address] PT Coag (PPP) [Time] 12.1 s High 9.0-12.0 [facility] Comment on above: Performed By: #### L [id number] ####Food Cart Attendant: DANIELLA PEREZ ([id number])[facility] ([facility])[address] [place] [address] Progress Noteon 05-04-2024 Progress Note [facility] [employer] Farhana Serranoonnell : 1940 Primary Care Physician: No primary care provider on file. The patient and/or family/surrogate voluntarily agreed to participate in ACP services. Patient?s cognitive capacity: Patient is Alert and [place] to person, place and time Code Status: [x] [FULL CODE - Continue all advanced life support: CPR,intubation,invasi ve procedures] [_] [DNR-CCA - DO NOT do CPR, intubation] [_] [DNR-KELP GATHERER - Comfort care only] [_] DNR form [...] care, with patient and/or family/surrogate. Azam Mcbride G[employer]UR[employer] MECHANIC - INSURANCE BUSINESS ANALYST [employer] [facility] [employer] 05/04/2024, 12:47 PM [facility] XR CHEST 2 VIEWSon 5 [...] Signed Date/Time: 05/04/2024 9:02 PM EDT [facility] XR Chest 2 Viewson 5 1. No acute finding. Report Dictated on Electronically Signed By: Wagner Mclean MD Electronically Signed Date/Time: 05/04/2024 9:02 PM EDT [facility] Patient Name: FARHANA THRASHER : 1940 Exam Date/Time: 05/04/2024 13:00 Procedure: XR CHEST 2 VIEWS Ordering Provider: MCBRIDE NICOLE Reason For Exam: PREOPERATIVE ANESTHESIA CHEST X-RAY TWO VIEWS CLINICAL INDICATION: PREOPERATIVE ANESTHESIA TECHNIQUE: Frontal and lateral views of the chest. COMPARISON: None FINDINGS: Lungs show no significant consolidation. No pleural effusion or pneumothorax. No vascular congestion. Heart size normal. [facility] Wagner Mclean MD - 05/04/2024 Patient Name: FARHANA THRASHER : 1940 [id number] Exam Date/Time: 05/04/2024 13:00 Procedure: XR CHEST [...] Electronically Signed Date/Time: 05/04/2024 9:02 PM EDT [facility] Radiology Study observation (narrative) [facility] XR Chest 2 ViewsOrdered By: Wagner Mclean on 05-04-2024 [facility] Work Phone: 29on 04-25-2024 29 Addended by: CARTER LE on: 04/25/2024 01:57 PM Modules accepted: Orders Normal [facility] Office Visiton 04-25-2024 Follow-up visit [id number] Nimisha Thrasher 1940 M Date Provider Department Center 04/25/2024 [id number], [facility] None Family History Problem Relation Age of Onset Stroke Mother COPD Father Coronary artery disease Father Coronary artery disease Brother Heart attack Brother Family Status - Relation Status Age at Mother Father Brother Level of Service:69505 MS OFFICE/OUTPATIENT NEW HIGH MDM 60 MINUTES Reason for Visit and Comments: New Patient [542] Normal [facility] Progress Noteon 04-25-2024 Progress Note Pre op teaching done with patient. Instructed to hold NSAIDS 7 days prior to surgery. All other medications per [facility] protocol. Pharmacy confirmed. All questions answered. Normal [facility] Progress Note [facility] CARDIOVASCULAR & THORACIC SURGERY [address] [facility] [address] [facility] [address] Dept: [phone] Dept Loc: [phone] Visit type: New Reason for Visit: Multivessel [...] Julio Cesar (more content not included)... Normal [facility] Cardiac Cath Diagn[facility]icon Cardiac Cath Diagnostic Normal [facility] Absolute lymphocyte countOrd ered By: Raven Thrasher on 04-21-2024 Lymphocytes Auto (Unsp spec) [#/Vol] 1.33 10*3/uL 0.83-4.51 [facility] Absolute neutrophil countOrd ered By: Raven Thrasher on 04-21-2024 Neutrophils (Bld) [#/Vol] 5.7 10*3/uL 2.0-7.7 [facility] Automated lymphocyte count a s percentage of total leukocytesOrdered By: Raven Thrasher on 04-21-2024 Lymphocytes/100 WBC Auto (Unsp spec) 16.4 % Low 19-41 [facility] BUN/creatinine ratioOrdered By: Raven Thrasher on 04-21-2024 Urea nitrogen/Creatinine [Mass ratio] 24.5 mg/mg High 10-20 [facility] Basic Metabolic Profile (BMP )on 04-21-2024 Anion gap [Moles/Vol] 14 mmol/L Normal 5-[address] [facility] Comment on above: Performed By: #### L 500.2500, L100.0100, L300.3900 ####[facility] [address] [place], [address] BUN/CRE 24.5 RATIO High 10-20 [facility] Comment on above: Performed By: #### L 500.2500, L100.0100, L300.3900 ####[facility] [address] [place], [address] Calcium [Mass/Vol] 9.3 mg/dL Normal 7.6-11.0 [facility] Comment on above: Performed By: #### L 500.2500, L100.0100, L300.3900 ####[facility] [address] [place], [address] Chloride [Moles/Vol] 104 mmol/L Normal 96-108 [facility] Comment on above: Performed By: #### L 500.2500, L100.0100, L300.3900 ####[facility] [address] [place], [address] CO2 [Moles/Vol] 21.9 mmol/L Low 22.0-29.0 [facility] Comment on above: Performed By: #### L 500.2500, L100.0100, L300.3900 ####[facility] [address] [place], [address] Creatinine [Mass/Vol] 0.96 mg/dL Normal 0.70-1.[address] [facility] Comment on above: Performed By: #### L 500.2500, L100.0100, L300.3900 ####[facility] [address] [place], [address] GFR/1.73 sq M.predicted among non-blacks MDRD (S/P/Bld) [Vol rate/Area] 79 mL/min/{1.73_m2} Normal >60 [facility] Comment on above: Result Comment: mL/m in/1.73m2 CKD-EPI Creatinine Equation (2020) Performed By: #### L 500.2500, L100.0100, L300.3900 ####[facility] [address] [place], [address] Glucose [Mass/Vol] 149 mg/dL High 70-99 [facility] Comment on above: Performed By: #### L 500.2500, L100.0100, L300.3900 ####[facility] [address] [place], [address] Potassium [Moles/Vol] 4.6 mmol/L Normal 3.3-5.[address] [facility] Comment on above: Performed By: #### L 500.2500, L100.0100, L300.3900 ####[facility] [address] [place], [address] Sodium [Moles/Vol] 139 mmol/L Normal 133-145 [facility] Comment on above: Performed By: #### L 500.2500, L100.0100, L300.3900 ####[facility] [address] [place], [address] Urea nitrogen [Mass/Vol] 24 mg/dL High 4-19 [facility] Comment on above: Performed By: #### L 500.2500, L100.0100, L300.3900 ####[facility] [address] [place], [address] Basophil percentageOrdered B y: Raven Thrasher on 04-21-2024 Basophils/100 WBC (Bld) 0.7 % 0-1 [facility] CBC W/Diff, Automatedon 03-26 Absolute Lymph 1.33 X10 3/uL Normal 0.83-4.51 [facility] Comment on above: Performed By: #### L 500.2500, L100.0100, L300.3900 ####[facility] [address] [place], [address] Absolute Neut 5.7 X10 3/uL Normal 2.0-7.7 [facility] Comment on above: Performed By: #### L 500.2500, L100.0100, L300.3900 ####[facility] [address] [place], [address] Basophils/100 WBC (Bld) 0.7 % Normal 0-1 [facility] Comment on above: Performed By: #### L 500.2500, L100.0100, L300.3900 ####[facility] [address] [place], [address] Eosinophils/100 WBC (Bld) 1.0 % Normal 0-5 [facility] Comment on above: Performed By: #### L 500.2500, L100.0100, L300.3900 ####[facility] [address] [place], [address] Erythrocyte distribution width (RBC) [Ratio] 14.1 % Normal 11.6-14.6 [facility] Comment on above: Performed By: #### L 500.2500, L100.0100, L300.3900 ####[facility] [address] [place], [address] Hematocrit (Bld) [Volume fraction] 40.8 % Normal 40-54 [facility] Comment on above: Performed By: #### L 500.2500, L100.0100, L300.3900 ####[facility] [address] [place], [address] Hemoglobin (Bld) [Mass/Vol] 13.3 g/dL Normal 13.0-16.5 [facility] Comment on above: Performed By: #### L 500.2500, L100.0100, L300.3900 ####[facility] [address] [place], [address] IG% 0.900 Normal 0.0-0.9 [facility] Comment on above: Result Comment: IG% - Immature Granulocytes (promyelocytes, myelocytes andmetamyelocytes) > 1% indicates that a LEFT SHIFT is Present. Performed By: #### L 500.2500, L100.0100, L300.3900 ####[facility] [address] [place], [address] Lymphocytes/100 WBC (Bld) 16.4 % Low 19-41 [facility] [place] Comment on above: Performed By: #### L 500.2500, L100.0100, L300.3900 ####[facility] [address] [place], [address] MCH (RBC) [Entitic mass] 27.8 pg Normal 27.0-32.0 [facility] Comment on above: Performed By: #### L 500.2500, L100.0100, L300.3900 ####[facility] [address] [place], [address] MCHC (RBC) [Mass/Vol] 32.6 g/dL Normal 32-[address] [facility] Comment on above: Performed By: #### L 500.2500, L100.0100, L300.3900 ####[facility] [address] [place], [address] MCV (RBC) [Entitic vol] 85.2 fL Normal 80-94 [facility] Comment on above: Performed By: #### L 500.2500, L100.0100, L300.3900 ####[facility] [address] [place], [address] Monocytes/100 WBC (Bld) 11.1 % High 0-10 [facility] Comment on above: Performed By: #### L 500.2500, L100.0100, L300.3900 ####[facility] [address] [place], [address] Neutrophils/100 WBC (Bld) 69.9 % Normal 47-70 [facility] Comment on above: Performed By: #### L 500.2500, L100.0100, L300.3900 ####[facility] [address] [place], [address] Nucleated RBC (Bld) [#/Vol] 0 10*3/uL Normal 0-5 [facility] Comment on above: Performed By: #### L 500.2500, L100.0100, L300.3900 ####[facility] [address] [place], [address] Platelet mean volume (Bld) [Entitic vol] 9.2 fL Normal 6.2-12.0 [facility] Comment on above: Performed By: #### L 500.2500, L100.0100, L300.3900 ####[facility] [address] [place], [address] Platelets (Bld) [#/Vol] 195 10*3/uL Normal 150-450 [facility] Comment on above: Performed By: #### L 500.2500, L100.0100, L300.3900 ####[facility] [address] [place], [address] RBC (Bld) [#/Vol] 4.79 10*6/uL Normal 4.6-6.2 [facility] Comment on above: Performed By: #### L 500.2500, L100.0100, L300.3900 ####[facility] [address] [place], [address] RDW SD 43.5 fl Normal 35.1-43.9 [facility] Comment on above: Performed By: #### L 500.2500, L100.0100, L300.3900 ####[facility] [address] [place], [address] WBC (Bld) [#/Vol] 8.1 10*3/uL Normal 4.4-11.0 [facility] Comment on above: Performed By: #### L 500.2500, L100.0100, L300.3900 ####[facility] [address] [place], [address] Carbon dioxide measurementOr dered By: Raven Thrasher on 04-21-2024 CO2 [Moles/Vol] 21.9 mmol/L Low 22.0-29.0 [facility] Chest PA and Lateralon 04-21 Chest PA and Lateral Normal [facility] Chloride measurementOrdered By: Raven Thrasher on 04-21-2024 Chloride [Moles/Vol] 104 mmol/L 96-108 [facility] Eosinophil percentageOrdered By: Raven Thrasher on 04-21-2024 Eosinophils/100 WBC (Bld) 1.0 % 0-5 [facility] Erythrocyte distribution wid th ratioOrdered By: Raven Thrasher on 04-21-2024 Erythrocyte distribution width (RBC) [Ratio] 14.1 % 11.6-14.6 [facility] Erythrocyte distribution wid th standard deviationOrdered By: Raven Thrasher on 04-21-2024 Erythrocyte distribution width (RBC) [Entitic vol] 43.5 fL 35.1-43.9 [facility] Erythrocyte distribution width (RBC) [Ratio] 43.5 fl 35.1-43.9 [facility] GFR/1.73 sq M.predicted [place] g non-blacks MDRD (S/P/Bld) [Vol rate/Area]Ordered By: Raven Thrasher on 04-21-2024 Estimated GFR (MDRD) Non-Af Amer 79 >60 [facility] Comment on above: mL/min/1.73m2 CKD-EP I Creatinine Equation (2020) Glomerular filtration rate ( GFR) estimation/1.73 sq m using serum, plasma, or whole bOrdered By: Raven Thrasher on 04-21-2024 GFR/1.73 sq M.predicted among non-blacks MDRD (S/P/Bld) [Vol rate/Area] 79 mL/min/{1.73_m2} >60 [facility] Comment on above: mL/min/1.73m2 CKD-EP I Creatinine Equation (2020) Hematocrit Auto (Bld) [Volum e fraction]Ordered By: Raven Thrasher on 04-21-2024 Hematocrit (Bld) [Volume fraction] 40.8 % 40-54 [facility] Hemoglobin measurementOrdere d By: Raven Thrasher on 04-21-2024 Hemoglobin (Bld) [Mass/Vol] 13.3 g/dL 13.0-16.5 [facility] Immature granulocytes/100 WB C Auto (Bld)Ordered By: Raven Thrasher on 04-21-2024 Immature granulocytes/100 WBC (Bld) 0.900 % 0.0-0.9 [facility] Comment on above: IG% - Immature Granu locytes (promyelocytes, myelocytes and metamyelocytes) > 1% indicates that a LEFT SHIFT is Present. International normalized rat io (INR) calculationOrdered By: Raven Thrasher on 04-21-2024 INR Coag (Bld) [Relative time] 1.1 {INR} [facility] Lymphocytes Auto (Unsp spec) [#/Vol]Ordered By: Raven Thrasher on 04-21-2024 Lymphocytes (Bld) [#/Vol] 1.33 10*3/uL 0.83-4.51 [facility] Lymphocytes/100 WBC Auto (Un sp spec)Ordered By: Raven Thrasher on 04-21-2024 Lymphocytes/100 WBC (Bld) 16.4 % Low 19-41 [facility] MCV (mean corpuscular volume ) determinationOrdered By: Raven Thrasher on 04-21-2024 MCV (RBC) [Entitic vol] 85.2 fL 80-94 [facility] Mean corpuscular hemoglobin (MCH) determinationOrdered By: Raven Thrasher on 04-21-2024 MCH (RBC) [Entitic mass] 27.8 pg 27.0-32.0 [facility] Mean corpuscular hemoglobin concentration (MCHC) determinationOrdered By: Raven Thrasher on 04-21-2024 MCHC (RBC) [Mass/Vol] 32.6 g/dL 32-[address] [facility] Mean platelet volume determi nationOrdered By: Raven Thrasher on 04-21-2024 Platelet mean volume (Bld) [Entitic vol] 9.2 fL 6.2-12.0 [facility] Monocyte percentageOrdered B y: Raven Thrasher on 04-21-2024 Monocytes/100 WBC (Bld) 11.1 % High 0-10 [facility] Neutrophil percentageOrdered By: Raven Thrasher on 04-21-2024 Neutrophils/100 WBC (Bld) 69.9 % 47-70 [facility] Nucleated red blood cell per centageOrdered By: Raven Thrasher on 04-21-2024 Nucleated RBC/100 WBC (Bld) [Ratio] 0 % 0-5 [facility] Platelet countOrdered By: Lynette Thrasher on 04-21-2024 Platelets (Bld) [#/Vol] 195 10*3/uL 150-450 [facility] Prothrombin Time w/INRon INR Coag (PPP) [Relative time] 1.1 {INR} Normal [facility] Comment on above: Performed By: #### L 500.2500, L100.0100, L300.3900 ####[facility] [address] [place], [address] PT Coag (PPP) [Time] 14.2 s Normal 11.7-14.9 [facility] Comment on above: Performed By: #### L 500.2500, L100.0100, L300.3900 ####[facility] [address] [place], [address] Prothrombin timeOrdered By: Raven Thrasher on 04-21-2024 PT Coag (PPP) [Time] 14.2 s 11.7-14.9 [facility] RBC Auto (Bld) [#/Vol]Ordere d By: Raven Thrasher on 04-21-2024 RBC (Bld) [#/Vol] 4.79 10*6/uL 4.6-6.2 [facility] Serum creatinine measurement (mass/volume)Ordered By: Raven Thrasher on 04-21-2024 Creatinine [Mass/Vol] 0.96 mg/dL 0.70-1.[address] [facility] Serum glucose measurement (m ass/volume)Ordered By: Raven Thrasher on 04-21-2024 Glucose [Mass/Vol] 149 mg/dL High 70-99 [facility] Serum or plasma anion gap de termination (moles/volume)Ordered By: Raven Thrasher on 04-21-2024 Anion gap [Moles/Vol] 14 mmol/L 5-[address] [facility] Serum or plasma calcium mt urement (mass/volume)Ordered By: Raven Thrasher on 04-21-2024 Calcium [Mass/Vol] 9.3 mg/dL 7.6-11.0 [facility] Serum or plasma potassium me asurementOrdered By: Raven Thrasher on 04-21-2024 Potassium [Moles/Vol] 4.6 mmol/L 3.3-5.[address] [facility] Serum or plasma sodium measu rement (moles/volume)Ordered By: Raven Thrasher on 04-21-2024 Sodium [Moles/Vol] 139 mmol/L 133-145 [facility] Serum or plasma urea nitroge n measurement (mass/volume)Ordered By: Raven Thrasher on 04-21-2024 Urea nitrogen [Mass/Vol] 24 mg/dL High 4-19 [facility] White blood cell (WBC) count Ordered By: Raven Thrasher on 04-21-2024 WBC (Bld) [#/Vol] 8.1 10*3/uL 4.4-11.0 [facility] Stress Reporton 04-20-2024 Stress Report Normal [facility] Carotid Duplex Ultrasoundon 04-17-2024 Carotid Duplex Ultrasound Normal [facility] Echo Completeon 04-17-2024 Echo Complete Normal [facility] Cardiology Visit Reporton Cardiology Visit Report Normal [facility] Testosterone Freeon 03-12-19 TESTOSTER FREE 1.1 pg/mL Abnormal 6.6-18.1 [facility] Comment on above: Result Comment: Perf ormed at: [facility] [id number] Director: Lucas Sorto MD, Phone: [phone] Performed By: #### L 500.4050, L501.9520, L501.9985, L100.0100, L3400.4800, L500.4100, L506.1000 ####[facility] [address] [place], [address] 93-[place]-Aozzgdp DOrdered By: Heidy Moon on 03-07-2024 Vitamin D 25-Hydroxy 40.2 ng/mL [facility] Comment on above: Vitamin D 25(OH) Sta tus Range Deficiency <20 ng/mL (50nmol/L) Insufficiency 20 - 30 ng/mL (50 - 75 nmol/L) Sufficiency 30 - 100 ng/mL (75 - 250 nmol/L) Toxicity >100 ng/mL (>250 nmol/L) Absolute neutrophil countOrd ered By: Fredis Moon on 03-07-2024 Neutrophils (Bld) [#/Vol] 4.8 10*3/uL 2.0-7.7 [facility] Albumin to globulin ratioOrd ered By: Fredis Moon on 03-07-2024 Albumin/Globulin [Mass ratio] 0.9 {ratio} 0.9-2.4 [facility] Basophil percentageOrdered B y: Fredis Moon on 03-07-2024 Basophils/100 WBC (Bld) 0.7 % 0-1 [facility] Bilirubin, totalOrdered By: Fredis Moon on 03-07-2024 Bilirubin [Mass/Vol] 0.40 mg/dL 0.20-1.00 [facility] Comment on above: For patients on eltr ombopag therapy, use of [employer] TBIL is not recommended. Blood urea nitrogen (BUN)/cr eatinine ratioOrdered By: Fredis Moon on 03-07-2024 Urea nitrogen/Creatinine [Mass ratio] 25.1 mg/mg High 10-20 [facility] CBC W/Diff, Automatedon 02-22 Absolute Lymph 1.25 X10 3/uL Normal 0.83-4.51 [facility] Comment on above: Performed By: #### L 500.4050, L501.9520, L501.9985, L100.0100, L3400.4800, L500.4100, L506.1000 ####[facility] [address] [place], [address] Absolute Neut 4.8 X10 3/uL Normal 2.0-7.7 [facility] Comment on above: Performed By: #### L 500.4050, L501.9520, L501.9985, L100.0100, L3400.4800, L500.4100, L506.1000 ####[facility] [address] [place], [address] Basophils/100 WBC (Bld) 0.7 % Normal 0-1 [facility] Comment on above: Performed By: #### L 500.4050, L501.9520, L501.9985, L100.0100, L3400.4800, L500.4100, L506.1000 ####[facility] [address] [place], [address] Eosinophils/100 WBC (Bld) 1.4 % Normal 0-5 [facility] Comment on above: Performed By: #### L 500.4050, L501.9520, L501.9985, L100.0100, L3400.4800, L500.4100, L506.1000 ####[facility] [address] [place], [address] Erythrocyte distribution width (RBC) [Ratio] 14.1 % Normal 11.6-14.6 [facility] Comment on above: Performed By: #### L 500.4050, L501.9520, L501.9985, L100.0100, L3400.4800, L500.4100, L506.1000 ####[facility] [address] [place], [address] Hematocrit (Bld) [Volume fraction] 40.6 % Normal 40-54 [facility] Comment on above: Performed By: #### L 500.4050, L501.9520, L501.9985, L100.0100, L3400.4800, L500.4100, L506.1000 ####[facility] [address] [place], [address] Hemoglobin (Bld) [Mass/Vol] 13.0 g/dL Normal 13.0-16.5 [facility] Comment on above: Performed By: #### L 500.4050, L501.9520, L501.9985, L100.0100, L3400.4800, L500.4100, L506.1000 ####[facility] [address] [place], [address] IG% 1.100 High 0.0-0.9 [facility] Comment on above: Result Comment: IG% - Immature Granulocytes (promyelocytes, myelocytes andmetamyelocytes) > 1% indicates that a LEFT SHIFT is Present. Performed By: #### L 500.4050, L501.9520, L501.9985, L100.0100, L3400.4800, L500.4100, L506.1000 ####[facility] [address] [place], [address] Lymphocytes/100 WBC (Bld) 17.5 % Low 19-41 [facility] Comment on above: Performed By: #### L 500.4050, L501.9520, L501.9985, L100.0100, L3400.4800, L500.4100, L506.1000 ####[facility] [address] [place], [address] MCH (RBC) [Entitic mass] 27.5 pg Normal 27.0-32.0 [facility] Comment on above: Performed By: #### L 500.4050, L501.9520, L501.9985, L100.0100, L3400.4800, L500.4100, L506.1000 ####[facility] [address] [place], [address] MCHC (RBC) [Mass/Vol] 32.0 g/dL Normal 32-[address] [facility] Comment on above: Performed By: #### L 500.4050, L501.9520, L501.9985, L100.0100, L3400.4800, L500.4100, L506.1000 ####[facility] [address] [place], [address] MCV (RBC) [Entitic vol] 86.0 fL Normal 80-94 [facility] Comment on above: Performed By: #### L 500.4050, L501.9520, L501.9985, L100.0100, L3400.4800, L500.4100, L506.1000 ####[facility] [address] [place], [address] Monocytes/100 WBC (Bld) 12.5 % High 0-10 [facility] Comment on above: Performed By: #### L 500.4050, L501.9520, L501.9985, L100.0100, L3400.4800, L500.4100, L506.1000 ####[facility] [address] [place], [address] Neutrophils/100 WBC (Bld) 66.8 % Normal 47-70 [facility] Comment on above: Performed By: #### L 500.4050, L501.9520, L501.9985, L100.0100, L3400.4800, L500.4100, L506.1000 ####[facility] [address] [place], [address] Nucleated RBC (Bld) [#/Vol] 0 10*3/uL Normal 0-5 [facility] Comment on above: Performed By: #### L 500.4050, L501.9520, L501.9985, L100.0100, L3400.4800, L500.4100, L506.1000 ####[facility] [address] [place], [address] Platelet mean volume (Bld) [Entitic vol] 9.2 fL Normal 6.2-12.0 [facility] Comment on above: Performed By: #### L 500.4050, L501.9520, L501.9985, L100.0100, L3400.4800, L500.4100, L506.1000 ####[facility] [address] [place], [address] Platelets (Bld) [#/Vol] 198 10*3/uL Normal 150-450 [facility] Comment on above: Performed By: #### L 500.4050, L501.9520, L501.9985, L100.0100, L3400.4800, L500.4100, L506.1000 ####[facility] [address] [place], [address] RBC (Bld) [#/Vol] 4.72 10*6/uL Normal 4.6-6.2 [facility] Comment on above: Performed By: #### L 500.4050, L501.9520, L501.9985, L100.0100, L3400.4800, L500.4100, L506.1000 ####[facility] [address] [place], [address] RDW SD 44.3 fl High 35.1-43.9 [facility] Comment on above: Performed By: #### L 500.4050, L501.9520, L501.9985, L100.0100, L3400.4800, L500.4100, L506.1000 ####[facility] [address] [place], [place], [phone]) WBC (Bld) [#/Vol] 7.1 10*3/uL Normal 4.4-11.0 [facility] Comment on above: Performed By: #### L 500.4050, L501.9520, L501.9985, L100.0100, L3400.4800, L500.4100, L506.1000 ####[facility] [address] [place], [place], [id number] Carbon dioxide measurementOr dered By: Fredis Moon on 03-07-2024 CO2 [Moles/Vol] 30.0 mmol/L 21.0-32.0 [facility] Chloride measurementOrdered By: Fredis Moon on 03-07-2024 Chloride [Moles/Vol] 107 mmol/L 98-107 [facility] Comprehensive Metabolic Prof ilon 03-07-2024 Albumin [Mass/Vol] 3.3 g/dL Normal 3.2-5.0 [facility] Comment on above: Performed By: #### L 500.4050, L501.9520, L501.9985, L100.0100, L3400.4800, L500.4100, L506.1000 ####[facility] [address] [place], [address] Albumin/Globulin [Mass ratio] 0.9 {ratio} Normal 0.9-2.4 [facility] Comment on above: Performed By: #### L 500.4050, L501.9520, L501.9985, L100.0100, L3400.4800, L500.4100, L506.1000 ####[facility] [address] [place], [address] ALK P 103 U/L Normal 45-117 [facility] Comment on above: Performed By: #### L 500.4050, L501.9520, L501.9985, L100.0100, L3400.4800, L500.4100, L506.1000 ####[facility] [address] [place], [address] ALT [Catalytic activity/Vol] 18 U/L Normal 16-61 [facility] Comment on above: Performed By: #### L 500.4050, L501.9520, L501.9985, L100.0100, L3400.4800, L500.4100, L506.1000 ####[facility] [address] [place], [address] AST [Catalytic activity/Vol] 15 U/L Normal 15-37 [facility] Comment on above: Performed By: #### L 500.4050, L501.9520, L501.9985, L100.0100, L3400.4800, L500.4100, L506.1000 ####[facility] [address] [place], [address] Bilirubin [Mass/Vol] 0.40 mg/dL Normal 0.20-1.00 [facility] Comment on above: Result Comment: For patients on eltrombopag therapy, use of [employer] TBIL is not recommended. Performed By: #### L 500.4050, L501.9520, L501.9985, L100.0100, L3400.4800, L500.4100, L506.1000 ####[facility] [address] [place], [address] BUN/CRE 25.1 RATIO High 10-20 [facility] Comment on above: Performed By: #### L 500.4050, L501.9520, L501.9985, L100.0100, L3400.4800, L500.4100, L506.1000 ####[facility] [address] [place], [address] CA,Total 8.8 mg/dL Normal 8.5-10.1 [facility] Comment on above: Performed By: #### L 500.4050, L501.9520, L501.9985, L100.0100, L3400.4800, L500.4100, L506.1000 ####[facility] [address] [place], [address] Chloride [Moles/Vol] 107 mmol/L Normal 98-107 [facility] Comment on above: Performed By: #### L 500.4050, L501.9520, L501.9985, L100.0100, L3400.4800, L500.4100, L506.1000 ####[facility] [address] [place], [address] CO2 [Moles/Vol] 30.0 mmol/L Normal 21.0-32.0 [facility] Comment on above: Performed By: #### L 500.4050, L501.9520, L501.9985, L100.0100, L3400.4800, L500.4100, L506.1000 ####[facility] [address] [place], [address] Creatinine [Mass/Vol] 1.00 mg/dL Normal 0.70-1.[address] [facility] Comment on above: Result Comment: The validity of the calculated GFR GFRAA in patients over70 years has not been determined. Clinical correlation isessential. Performed By: #### L 500.4050, L501.9520, L501.9985, L100.0100, L3400.4800, L500.4100, L506.1000 ####[facility] [address] [place], [address] EST GFR - AA 93 mL/min Normal >60 [facility] Comment on above: Result Comment: Afri can Slovenian GFR Calc Performed By: #### L 500.4050, L501.9520, L501.9985, L100.0100, L3400.4800, L500.4100, L506.1000 ####[facility] [address] [place], [place], [phone]) GAP 5 Normal 5-15 [facility] Comment on above: Performed By: #### L 500.4050, L501.9520, L501.9985, L100.0100, L3400.4800, L500.4100, L506.1000 ####[facility] [address] [place], [place], [id number] GFR/1.73 sq M.predicted among non-blacks MDRD (S/P/Bld) [Vol rate/Area] 77 mL/min/{1.73_m2} Normal >60 [facility] Comment on above: Result Comment: Non- GFR Calc Performed By: #### L 500.4050, L501.9520, L501.9985, L100.0100, L3400.4800, L500.4100, L506.1000 ####[facility] [address] [place], [address] Globulin (S) [Mass/Vol] 3.6 g/dL Normal 2.2-4.2 [facility] Comment on above: Performed By: #### L 500.4050, L501.9520, L501.9985, L100.0100, L3400.4800, L500.4100, L506.1000 ####[facility] [address] [place], [address] Glucose [Mass/Vol] 141 mg/dL High 74-106 [facility] Comment on above: Result Comment: Fast ing Glucose result greater than or equal to 126 mg/dLsuggests DIABETES MELLITUS per A.D.A. criteria. Performed By: #### L 500.4050, L501.9520, L501.9985, L100.0100, L3400.4800, L500.4100, L506.1000 ####[facility] [address] [place], [address] Potassium [Moles/Vol] 4.9 mmol/L Normal 3.5-5.[address] [facility] Comment on above: Performed By: #### L 500.4050, L501.9520, L501.9985, L100.0100, L3400.4800, L500.4100, L506.1000 ####[facility] [address] [place], [address] Sodium [Moles/Vol] 142 mmol/L Normal 136-145 [facility] Comment on above: Performed By: #### L 500.4050, L501.9520, L501.9985, L100.0100, L3400.4800, L500.4100, L506.1000 ####[facility] [address] [place], [address] T PROT 6.9 g/dL Normal 6.4-8.2 [facility] Comment on above: Performed By: #### L 500.4050, L501.9520, L501.9985, L100.0100, L3400.4800, L500.4100, L506.1000 ####[facility] [address] [place], [address] Urea nitrogen [Mass/Vol] 25 mg/dL High 7-18 [facility] Comment on above: Performed By: #### L 500.4050, L501.9520, L501.9985, L100.0100, L3400.4800, L500.4100, L506.1000 ####[facility] [address] [place], [address] Eosinophil percentageOrdered By: Fredis Moon on 03-07-2024 Eosinophils/100 WBC (Bld) 1.4 % 0-5 [facility] Erythrocyte distribution wid th ratioOrdered By: Fredis Moon on 03-07-2024 Erythrocyte distribution width (RBC) [Ratio] 14.1 % 11.6-14.6 [facility] Erythrocyte distribution wid th standard deviationOrdered By: Fredis Moon on 03-07-2024 Erythrocyte distribution width (RBC) [Entitic vol] 44.3 fL High 35.1-43.9 [facility] Estimated glomerular filtrat ion rate (GFR) AmericanOrdered By: Fredis Moon on 03-07-2024 Estimated GFR (MDRD) Amer 93 mL/min >60 [facility] Comment on above: GFR Calc Glomerular filtration rate ( GFR) estimationOrdered By: Fredis Moon on 03-07-2024 Estimated GFR (MDRD) Non-Af Amer 77 mL/min >60 [facility] Comment on above: Non- GFR Calc Glucose measurementOrdered B y: Fredis Moon on 03-07-2024 Glucose [Mass/Vol] 141 mg/dL High 74-106 [facility] Comment on above: Fasting Glucose resu lt greater than or equal to 126 mg/dL suggests DIABETES MELLITUS per A.D.A. criteria. Hematocrit Auto (Bld) [Volum e fraction]Ordered By: Fredis Moon on 03-07-2024 Hematocrit (Bld) [Volume fraction] 40.6 % 40-54 [facility] Hemoglobin A1con 03-07-2024 HbA1c (Bld) [Mass fraction] 7.8 % High 3.8-5.6 [facility] Comment on above: Result Comment: Norm al < 5.7 % Prediabetic 5.7 - 6.4 % Diabetic >or= 6.5 % Please note range changes. Performed By: #### L 500.4050, L501.9520, L501.9985, L100.0100, L3400.4800, L500.4100, L506.1000 ####[facility] [id number] [place], [address] Hemoglobin A1c percentageOrd ered By: Fredis Moon on 03-07-2024 HbA1c (Bld) [Mass fraction] 7.8 % High 3.8-5.6 [facility] Comment on above: Normal < 5.7 % Predi abetic 5.7 - 6.4 % Diabetic >or= 6.5 % Please note range changes. Hemoglobin measurementOrdere d By: Fredis Moon on 03-07-2024 Hemoglobin (Bld) [Mass/Vol] 13.0 g/dL 13.0-16.5 [facility] High density lipoprotein (HD L) measurementOrdered By: Fredis Moon on 03-07-2024 Cholesterol in HDL [Mass/Vol] 45 mg/dL >40 [facility] Comment on above: The drugs N-Acetylcy steine and Metamizole may falsely depress this assay. Reference Range HDL <40 mg/dL Low HDL Cholesterol HDL >or= 60 mg/dL High HDL Cholesterol Immature granulocytes/100 WB C Auto (Bld)Ordered By: Fredis Moon on 03-07-2024 Immature granulocytes/100 WBC (Bld) 1.100 % High 0.0-0.9 [facility] Comment on above: IG% - Immature Granu locytes (promyelocytes, myelocytes and metamyelocytes) > 1% indicates that a LEFT SHIFT is Present. Laboratory - Chemistry and C hemistry - challengeOrdered By: Fredis Moon on 03-07-2024 AST [Catalytic activity/Vol] 15 U/L 15-37 [facility] Lipid Profileon 03-07-2024 Cholesterol [Mass/Vol] 113 mg/dL Normal 200 [facility] Comment on above: Result Comment: <200 mg/dL Desirable 200-240 mg/dL Borderline >240 mg/dL High Risk Performed By: #### L 500.4050, [id number], L501.9985, L100.0100, L3400.4800, L500.4100, L506.1000 ####[facility] [address] [place], [address] Cholesterol in HDL [Mass/Vol] 45 mg/dL Normal [facility] Comment on above: Result Comment: The drugs N-Acetylcysteine and Metamizole may falselydepress this assay. Reference Range HDL <40 mg/dL Low HDL Cholesterol HDL >or= 60 mg/dL High HDL Cholesterol Performed By: #### L 500.4050, L501.9520, L501.9985, L100.0100, L3400.4800, L500.4100, L506.1000 ####[facility] [address] [place], [address] Cholesterol in LDL [Mass/Vol] -4 mg/dL Low 0-130 [facility] Comment on above: Performed By: #### L 500.4050, [id number], L501.9985, L100.0100, L3400.4800, L500.4100, L506.1000 ####[facility] [address] [place], [address] Cholesterol in VLDL [Mass/Vol] 72 mg/dL High 5-40 [facility] Comment on above: Performed By: #### L 500.4050, [id number], L501.9985, L100.0100, L3400.4800, L500.4100, L506.1000 ####[facility] [address] [place], [address] Triglyceride [Mass/Vol] 362 mg/dL High [facility] Comment on above: Result Comment: The drugs N-Acetylcysteine and Metamizole may falselydepress this assay.Serum Triglycerides Reference Interval Normal <150 mg/dL Borderline high 150 - 199 mg/dL High 200 - 499 mg/dL Very High > or = 500 mg/dL Performed By: #### L 500.4050, [id number], L501.9985, L100.0100, L3400.4800, L500.4100, L506.1000 ####[facility] [address] [place], [address] Low density lipoprotein (LDL ) cholesterol measurementOrdered By: Fredis Moon on 03-07-2024 Cholesterol in LDL [Mass/Vol] -4 mg/dL Low 0-130 [facility] Lymphocytes Auto (Unsp spec) [#/Vol]Ordered By: Fredis Moon on 03-07-2024 Lymphocytes (Bld) [#/Vol] 1.25 10*3/uL 0.83-4.51 [facility] Lymphocytes/100 WBC Auto (Un sp spec)Ordered By: Fredis Moon on 03-07-2024 Lymphocytes/100 WBC (Bld) 17.5 % Low 19-41 [facility] MCV (mean corpuscular volume ) determinationOrdered By: Fredis Moon on 03-07-2024 MCV (RBC) [Entitic vol] 86.0 fL 80-94 [facility] Mean corpuscular hemoglobin (MCH) determinationOrdered By: Fredis Moon 03-07-2024 MCH (RBC) [Entitic mass] 27.5 pg 27.0-32.0 [facility] Mean corpuscular hemoglobin concentration (MCHC) determinationOrdered By: Fredis Moon 03-07-2024 MCHC (RBC) [Mass/Vol] 32.0 g/dL 32-[address] [facility] Mean platelet volume determi nationOrdered By: Fredis Moon 03-07-2024 Platelet mean volume (Bld) [Entitic vol] 9.2 fL 6.2-12.0 [facility] Monocyte percentageOrdered B y: Fredis Moon on 03-07-2024 Monocytes/100 WBC (Bld) 12.5 % High 0-10 [facility] Neutrophil percentageOrdered By: Fredis Moon on 03-07-2024 Neutrophils/100 WBC (Bld) 66.8 % 47-70 [facility] Nucleated red blood cell per centageOrdered By: Fredis Moon on 03-07-2024 Nucleated RBC/100 WBC (Bld) [Ratio] 0 % 0-5 [facility] Platelet countOrdered By: Mir Moon on 03-07-2024 Platelets (Bld) [#/Vol] 198 10*3/uL 150-450 [facility] Potassium measurementOrdered By: Fredis Moon on 03-07-2024 Potassium [Moles/Vol] 4.9 mmol/L 3.5-5.[address] [facility] RBC Auto (Bld) [#/Vol]Ordere d By: Fredis Moon on 03-07-2024 RBC (Bld) [#/Vol] 4.72 10*6/uL 4.6-6.2 [facility] Serum anion gap measurementO rdered By: Fredis Moon on 03-07-2024 Anion gap [Moles/Vol] 5 mmol/L 5-[address] [facility] Serum globulin measurementOr dered By: Fredis Moon on 03-07-2024 Globulin (S) [Mass/Vol] 3.6 g/dL 2.2-4.2 [facility] Serum or plasma alanine hector otransferase (ALT) measurementOrdered By: Fredis Moon on 03-07-2024 ALT [Catalytic activity/Vol] 18 U/L 16-61 [facility] Serum or plasma albumin mt urement (mass/volume)Ordered By: Fredis Moon 03-07-2024 Albumin [Mass/Vol] 3.3 g/dL 3.2-5.0 [facility] Serum or plasma alkaline kristyn sphatase measurementOrdered By: Fredis Moon 03-07-2024 ALP [Catalytic activity/Vol] 103 U/L 45-117 [facility] Serum or plasma calcium mt urement (mass/volume)Ordered By: Fredis Moon on 03-07-2024 Calcium [Mass/Vol] 8.8 mg/dL 8.5-10.1 [facility] Serum or plasma cholesterol measurement (mass/volume)Ordered By: Fredis Moon on 03-07-2024 Cholesterol [Mass/Vol] 113 mg/dL <200 [facility] Comment on above: <200 mg/dL Desirable 200-240 mg/dL Borderline >240 mg/dL High Risk Serum or plasma creatinine m easurement (mass/volume)Ordered By: Fredis Moon on 03-07-2024 Creatinine [Mass/Vol] 1.00 mg/dL 0.70-1.[address] [facility] Comment on above: The validity of the calculated GFR & GFRAA in patients over 70 years has not been determined. Clinical correlation is essential. Serum or plasma urea nitroge n measurement (mass/volume)Ordered By: Fredis Moon on 03-07-2024 Urea nitrogen [Mass/Vol] 25 mg/dL High 7-18 [facility] Sodium levelOrdered By: Fredis Moon on 03-07-2024 Sodium [Moles/Vol] 142 mmol/L 136-145 [facility] TSH QnOrdered By: Fredis Moon o n 03-07-2024 Thyroid Stimulating Hormone (TSH) 3.430 uIU/mL 0.358-3.740 [facility] Testosterone Free [Mass/Vol] Ordered By: Fredis Moon on 03-07-2024 Free Testosterone 1.1 pg/mL Low 6.6-18.1 [facility] Comment on above: Performed at: [address] [id number] Director: Lucas Sorto MD, Phone: [phone] Thyroid Stim Hormone (TSH)on 03-07-2024 TSH 3.430 uIU/mL Normal 0.358-3.740 [facility] Comment on above: Performed By: #### L 500.4050, [id number], L501.9985, L100.0100, L3400.4800, L500.4100, L506.1000 ####[facility] [address] [place], [place], [id number] Total proteinOrdered By: Fredis Moon on 03-07-2024 Protein [Mass/Vol] 6.9 g/dL 6.4-8.2 [facility] Triglycerides measurementOrd ered By: Fredis Moon on 03-07-2024 Triglyceride [Mass/Vol] 362 mg/dL High <199 [facility] Comment on above: The drugs N-Acetylcy steine and Metamizole may falsely depress this assay.Serum Triglycerides Reference Interval Normal <150 mg/dL Borderline high 150 - 199 mg/dL High 200 - 499 mg/dL Very High > or = 500 mg/dL Very low density lipoprotein (VLDL) cholesterol measurementOrdered By: Fredis Moon on 03-07-2024 VLDL Cholesterol 72 mg/dL High 5-40 [facility] Vitamin D,25 Hydroxyon 03-07 Vitamin D 25-OH 40.2 ng/mL Normal [facility] Comment on above: Order Comment: ADD O N BOTH RED AND SST IN LAB Result Comment: Katie min D 25(OH) Status Range Deficiency <20 ng/mL (50nmol/L) Insufficiency 20 - 30 ng/mL (50 - 75 nmol/L) Sufficiency 30 - 100 ng/mL (75 - 250 nmol/L) Toxicity >100 ng/mL (>250 nmol/L) Performed By: #### L 500.4050, L501.9520, L501.9985, L100.0100, L3400.4800, L500.4100, L506.1000 ####[facility] [address] [place], [place], [id number] White blood cell (WBC) count Ordered By: Fredis Moon on 03-07-2024 WBC (Bld) [#/Vol] 7.1 10*3/uL 4.4-11.0 [facility] PSA,Total- Diagnosticon 11-2 PSA, DIAGNOSTIC < 0.01 Normal 0.0-4.0 [facility] Comment on above: Result Comment: This test was performed using the TPSA assay method for theDimedstar national rehabilitation hospitalsion chemistry system. Values obtained with differentassay methods cannot be used interchangably.When changing PSA assays in the course of monitoring apatient, additional sequential testing should be carriedout to confirm baseline values. Performed By: #### L 501.9940 ####[facility] [address] [place], [place], [id number] Absolute lymphocyte countOrd ered By: Fredis Moon on 06-01-2023 Lymphocytes Auto (Unsp spec) [#/Vol] 1.29 10*3/uL 0.83-4.51 [facility] Automated lymphocyte count a s percentage of total leukocytesOrdered By: Fredis Moon on 06-01-2023 Lymphocytes/100 WBC Auto (Unsp spec) 17.4 % 19-41 [facility] Basophil percentageOrdered B y: Fredis Moon on 06-01-2023 Basophils/100 WBC (Bld) 0.8 % 0-1 [facility] Bilirubin [Mass/Vol] 0.50 mg/dL 0.20-1.00 [facility] Comment on above: For patients on eltr ombopag therapy, use of [employer] TBIL is not recommended. Chloride [Moles/Vol] 108 mmol/L 98-107 [facility] Cholesterol [Mass/Vol] 112 mg/dL <200 [facility] Comment on above: <200 mg/dL Desirable 200-240 mg/dL Borderline >240 mg/dL High Risk Eosinophils/100 WBC (Bld) 1.3 % 0-5 [facility] Glucose [Mass/Vol] 121 mg/dL 74-106 [facility] Comment on above: Fasting Glucose resu lt from 100 to 125 mg/dL suggests IMPAIRED HOMEOSTASIS per A.D.A. criteria. Hemoglobin (Bld) [Mass/Vol] 13.4 g/dL 13.0-16.5 [facility] Monocytes/100 WBC (Bld) 12.7 % 0-10 [facility] Neutrophils (Bld) [#/Vol] 5.0 10*3/uL 2.0-7.7 [facility] Neutrophils/100 WBC (Bld) 67.0 % 47-70 [facility] Potassium [Moles/Vol] 4.4 mmol/L 3.5-5.[address] [facility] Protein [Mass/Vol] 6.8 g/dL 6.4-8.2 [facility] Sodium [Moles/Vol] 140 mmol/L 136-145 [facility] Testosterone [Mass/Vol] 34.50 ng/dL [facility] Comment on above: CENTRAL 90% REFERENC E RANGES MALE AGE <50 197.44 - 669.58 ng/dL MALE AGE > or = 50 187.72 - 684.19 ng/dL FEMALE AGE <50 8.38 - 35.01 ng/dL FEMALE AGE > or = 50 <7.00 - 35.92 ng/dL Effective as of 09/17/20 Triglyceride [Mass/Vol] 322 mg/dL <199 [facility] Comment on above: The drugs N-Acetylcy steine and Metamizole may falsely depress this assay.Serum Triglycerides Reference Interval Normal <150 mg/dL Borderline high 150 - 199 mg/dL High 200 - 499 mg/dL Very High > or = 500 mg/dL WBC (Bld) [#/Vol] 7.4 10*3/uL 4.4-11.0 [facility] Determination of erythrocyte mean corpuscular volume (MCV)Ordered By: Fredis Moon on 06-01-2023 MCV (RBC) [Entitic vol] 85.9 fL 80-94 [facility] Erythrocyte distribution wid th ratioOrdered By: [facility] Erythrocyte distribution width (RBC) [Ratio] 14.3 % 11.6-14.6 [facility] Erythrocyte distribution wid th standard deviationOrdered By: [facility] on 06-01-2023 Erythrocyte distribution width (RBC) [Entitic vol] 44.3 fL 35.1-43.9 [facility] Hematocrit Auto (Bld) [Volum e fraction][facility]23 Hematocrit (Bld) [Volume fraction] 41.4 % 40-54 [facility] Immature granulocytes/100 WB C Auto (Bld)Ordered By: [facility] 06-01-2023 Immature granulocytes/100 WBC (Bld) 0.800 % 0.0-0.9 [facility] Comment on above: IG% - Immature Granu locytes (promyelocytes, myelocytes and metamyelocytes) > 1% indicates that a LEFT SHIFT is Present. Laboratory - Chemistry and C hemistry - challengeOrdered By: [facility] on 06-01-2023 Albumin/Globulin [Mass ratio] 1.0 {ratio} 0.9-2.4 [facility] ALP [Catalytic activity/Vol] 88 U/L 45-117 [facility] ALT [Catalytic activity/Vol] 18 U/L 16-61 [facility] Cholesterol in HDL [Mass/Vol] 45 mg/dL >40 [facility] Comment on above: The drugs N-Acetylcy steine and Metamizole may falsely depress this assay. Reference Range HDL <40 mg/dL Low HDL Cholesterol HDL >or= 60 mg/dL High HDL Cholesterol Cholesterol in LDL [Mass/Vol] 3 mg/dL 0-130 [facility] CO2 [Moles/Vol] 24.0 mmol/L 21.0-32.0 [facility] Globulin (S) [Mass/Vol] 3.4 g/dL 2.2-4.2 [facility] Urea nitrogen/Creatinine [Mass ratio] 24.8 mg/mg 10-20 [facility] Laboratory - Hematology and Cell countsOrdered By: Fredis Moon on 06-01-2023 MCH (RBC) [Entitic mass] 27.8 pg 27.0-32.0 [facility] MCHC (RBC) [Mass/Vol] 32.4 g/dL 32-[address] [facility] Nucleated RBC/100 WBC (Bld) [Ratio] 0 % 0-5 [facility] Platelet mean volume (Bld) [Entitic vol] 9.3 fL 6.2-12.0 [facility] Platelets (Bld) [#/Vol] 223 10*3/uL 150-450 [facility] No Panel InformationOrdered By: Fredis Moon on 06-01-2023 Estimated GFR (MDRD) Amer 84 mL/min >60 [facility] Comment on above: GFR Calc Estimated GFR (MDRD) Non-Af Amer 69 mL/min >60 [facility] Comment on above: Non- GFR Calc Vitamin D 25-Hydroxy 71.7 ng/mL [facility] Comment on above: Vitamin D 25(OH) Sta tus Range Deficiency <20 ng/mL (50nmol/L) Insufficiency 20 - 30 ng/mL (50 - 75 nmol/L) Sufficiency 30 - 100 ng/mL (75 - 250 nmol/L) Toxicity >100 ng/mL (>250 nmol/L) VLDL Cholesterol 64 mg/dL 5-40 [facility] RBC Auto (Bld) [#/Vol]Ordere d By: Fredis Moon on 06-01-2023 RBC (Bld) [#/Vol] 4.82 10*6/uL 4.6-6.2 [facility] Serum or plasma calcium mt urement (mass/volume)Ordered By: Fredis Moon on 06-01-2023 Calcium [Mass/Vol] 9.0 mg/dL 8.5-10.1 [facility] Serum or plasma creatinine m easurement (mass/volume)Ordered By: Fredis Moon on 06-01-2023 Creatinine [Mass/Vol] 1.09 mg/dL 0.70-1.[address] [facility] Comment on above: The validity of the calculated GFR & GFRAA in patients over 70 years has not been determined. Clinical correlation is essential. Serum or plasma thyroid stim ulating hormone (TSH) measurement (units/volume)Ordered By: Fredis Moon on 06-01-2023 TSH Qn 2.51 uIU/mL 0.358-3.74 [facility] Serum or plasma urea nitroge n measurement (mass/volume)Ordered By: Fredis Moon on 06-01-2023 Urea nitrogen [Mass/Vol] 27 mg/dL 7-18 [facility] Thin prep Papanicolaou smear with manual screeningOrdered By: Fredis Moon on 06-01-2023 Thin prep Papanicolaou smear with manual screening 3.4 g/dL 3.2-5.0 [facility] Thin prep Papanicolaou smear with manual screening 15 U/L 15-37 [facility] Thin prep Papanicolaou smear with manual screening 8 5-15 [facility] Whole blood hemoglobin A1c/t otal hemoglobin ratio (mass fraction)Ordered By: Fredis Moon on 06-01-2023 HbA1c (Bld) [Mass fraction] 7.6 % 3.8-5.6 [facility] Comment on above: Normal < 5.7 % Predi abetic 5.7 - 6.4 % Diabetic >or= 6.5 % Please note range changes. Basophil percentageOrdered B y: Mi Hernandez on 04-05-2023 Chloride [Moles/Vol] 107 mmol/L 98-107 [facility] Glucose [Mass/Vol] 200 mg/dL 74-106 [facility] Comment on above: Glucose result great er than or equal to 200 mg/dLsuggests DIABETES MELLITUS per A.D.A. criteria. Potassium [Moles/Vol] 4.4 mmol/L 3.5-5.[address] [facility] Sodium [Moles/Vol] 142 mmol/L 136-145 [facility] Laboratory - Chemistry and C hemistry - challengeOrdered By: Mi Hernandez on 04-05-2023 CO2 [Moles/Vol] 26.0 mmol/L 21.0-32.0 [facility] Natriuretic peptide B (Bld) [Mass/Vol] 14.8 pg/mL 0-100 [facility] Urea nitrogen/Creatinine [Mass ratio] 24.1 mg/mg 10-20 [facility] No Panel InformationOrdered By: Mi Hernandez on 04-05-2023 Estimated GFR (MDRD) Amer 81 mL/min >60 [facility] Comment on above: GFR Calc Estimated GFR (MDRD) Non-Af Amer 67 mL/min >60 [facility] Comment on above: Non- GFR Calc Serum or plasma calcium mt urement (mass/volume)Ordered By: Mi Hernandez on 04-05-2023 Calcium [Mass/Vol] 9.3 mg/dL 8.5-10.1 [facility] Serum or plasma creatinine m easurement (mass/volume)Ordered By: Mi Hernandez on 04-05-2023 Creatinine [Mass/Vol] 1.12 mg/dL 0.70-1.[address] [facility] Comment on above: The validity of the calculated GFR & GFRAA in patients over 70 years has not been determined. Clinical correlation is essential. Serum or plasma urea nitroge n measurement (mass/volume)Ordered By: Mi Hernandez on 04-05-2023 Urea nitrogen [Mass/Vol] 27 mg/dL 7-18 [facility] Thin prep Papanicolaou smear with manual screeningOrdered By: Mi Hernandez on 04-05-2023 Thin prep Papanicolaou smear with manual screening 9 5-15 [facility] Absolute lymphocyte countOrd ered By: Fredis Moon on 03-02-2023 Lymphocytes Auto (Unsp spec) [#/Vol] 1.26 10*3/uL 0.83-4.51 [facility] Basophil percentageOrdered B y: Fredis Moon on 03-02-2023 Basophils/100 WBC (Bld) 0.9 % 0-1 [facility] Bilirubin [Mass/Vol] 0.60 mg/dL 0.20-1.00 [facility] Comment on above: For patients on eltr ombopag therapy, use of [employer] TBIL is not recommended. Chloride [Moles/Vol] 106 mmol/L 98-107 [facility] Cholesterol [Mass/Vol] 119 mg/dL <200 [facility] Comment on above: <200 mg/dL Desirable 200-240 mg/dL Borderline >240 mg/dL High Risk Eosinophils/100 WBC (Bld) 2.9 % 0-5 [facility] Glucose [Mass/Vol] 129 mg/dL 74-106 [facility] Comment on above: Fasting Glucose resu lt greater than or equal to 126 mg/dL suggests DIABETES MELLITUS per A.D.A. criteria. Neutrophils (Bld) [#/Vol] 4.1 10*3/uL 2.0-7.7 [facility] Neutrophils/100 WBC (Bld) 63.1 % 47-70 [facility] Potassium [Moles/Vol] 4.5 mmol/L 3.5-5.[address] [facility] Protein [Mass/Vol] 6.8 g/dL 6.4-8.2 [facility] Sodium [Moles/Vol] 139 mmol/L 136-145 [facility] Testosterone [Mass/Vol] 35.01 ng/dL [facility] Comment on above: CENTRAL 90% REFERENC E RANGES MALE AGE <50 197.44 - 669.58 ng/dL MALE AGE > or = 50 187.72 - 684.19 ng/dL FEMALE AGE <50 8.38 - 35.01 ng/dL FEMALE AGE > or = 50 <7.00 - 35.92 ng/dL Effective as of 09/17/20 Triglyceride [Mass/Vol] 337 mg/dL <199 [facility] Comment on above: The drugs N-Acetylcy steine and Metamizole may falsely depress this assay.Serum Triglycerides Reference Interval Normal <150 mg/dL Borderline high 150 - 199 mg/dL High 200 - 499 mg/dL Very High > or = 500 mg/dL WBC (Bld) [#/Vol] 6.5 10*3/uL 4.4-11.0 [facility] Blood erythrocytes count (nu mber/volume)Ordered By: Fredis Moon on 03-02-2023 RBC (Bld) [#/Vol] 4.80 10*6/uL 4.6-6.2 [facility] Blood hemoglobin measurement (mass/volume)Ordered By: [facility] on 03-02-2023 Hemoglobin (Bld) [Mass/Vol] 13.3 g/dL 13.0-16.5 [facility] Blood lymphocytes/100 leukoc ytesOrdered By: [facility] on 03-02-2023 Lymphocytes/100 WBC (Bld) 19.5 % 19-41 [facility] Blood monocytes/100 leukocyt esOrdered By: [facility] on 03-02-2023 Monocytes/100 WBC (Bld) 12.5 % 0-10 [facility] Blood platelet mean volumeOr dered By: [facility] on 03-02-2023 Platelet mean volume (Bld) [Entitic vol] 9.3 fL 6.2-12.0 [facility] Determination of erythrocyte mean corpuscular volume (MCV)Ordered By: [facility] on 03-02-2023 MCV (RBC) [Entitic vol] 86.0 fL 80-94 [facility] Hematocrit Auto (Bld) [Volum e fraction]Ordered By: [facility] on 03-02-2023 Hematocrit (Bld) [Volume fraction] 41.3 % 40-54 [facility] Laboratory - Chemistry and C hemistry - challengeOrdered By: [facility] on 03-02-2023 ALP [Catalytic activity/Vol] 99 U/L 45-117 [facility] ALT [Catalytic activity/Vol] 10 U/L 16-61 [facility] CO2 [Moles/Vol] 26.0 mmol/L 21.0-32.0 [facility] Globulin (S) [Mass/Vol] 3.4 g/dL 2.2-4.2 [facility] Urea nitrogen/Creatinine [Mass ratio] 23.4 mg/mg 10-20 [facility] Laboratory - Hematology and Cell countsOrdered By: [facility] on 03-02-2023 Erythrocyte distribution width (RBC) [Entitic vol] 44.8 fL 35.1-43.9 [facility] Erythrocyte distribution width (RBC) [Ratio] 14.3 % 11.6-14.6 [facility] Immature granulocytes/100 WBC (Bld) 1.100 % 0.0-0.9 [facility] Comment on above: IG% - Immature Granu locytes (promyelocytes, myelocytes and metamyelocytes) > 1% indicates that a LEFT SHIFT is Present. MCH (RBC) [Entitic mass] 27.7 pg 27.0-32.0 [facility] Nucleated RBC/100 WBC (Bld) [Ratio] 0 % 0-5 [facility] MCHC Auto (RBC) [Mass/Vol]Or dered By: Fredis Moon on 03-02-2023 MCHC (RBC) [Mass/Vol] 32.2 g/dL 32-[address] [facility] No Panel InformationOrdered By: Fredis Moon on 03-02-2023 Estimated GFR (MDRD) Amer 85 mL/min >60 [facility] Comment on above: GFR Calc Estimated GFR (MDRD) Non-Af Amer 71 mL/min >60 [facility] Comment on above: Non- GFR Calc Thyroid Stimulating Hormone (TSH) 2.27 uIU/mL 0.358-3.74 [facility] Vitamin D 25-Hydroxy 55.0 ng/mL [facility] Comment on above: Vitamin D 25(OH) Sta tus Range Deficiency <20 ng/mL (50nmol/L) Insufficiency 20 - 30 ng/mL (50 - 75 nmol/L) Sufficiency 30 - 100 ng/mL (75 - 250 nmol/L) Toxicity >100 ng/mL (>250 nmol/L) Platelets bldOrdered By: Fredis Moon on 03-02-2023 Platelets (Bld) [#/Vol] 206 10*3/uL 150-450 [facility] Serum or plasma albumin mt urement (mass/volume)Ordered By: Fredis Moon on 03-02-2023 Albumin [Mass/Vol] 3.4 g/dL 3.2-5.0 [facility] Serum or plasma albumin/glob ulin mass ratioOrdered By: Fredis Moon on 03-02-2023 Albumin/Globulin [Mass ratio] 1.0 {ratio} 0.9-2.4 [facility] Serum or plasma calcium mt urement (mass/volume)Ordered By: Fredis Moon on 03-02-2023 Calcium [Mass/Vol] 8.7 mg/dL 8.5-10.1 [facility] Serum or plasma cholesterol in HDL measurement (mass/volume)Ordered By: Fredis Moon on 03-02-2023 Cholesterol in HDL [Mass/Vol] 40 mg/dL >40 [facility] Comment on above: The drugs N-Acetylcy steine and Metamizole may falsely depress this assay. Reference Range HDL <40 mg/dL Low HDL Cholesterol HDL >or= 60 mg/dL High HDL Cholesterol Serum or plasma cholesterol in VLDL measurement (mass/volume)Ordered By: Fredis Moon on 03-02-2023 Cholesterol in VLDL [Mass/Vol] 67 mg/dL 5-40 [facility] Serum or plasma creatinine m easurement (mass/volume)Ordered By: Fredis Moon on 03-02-2023 Creatinine [Mass/Vol] 1.07 mg/dL 0.70-1.[address] [facility] Comment on above: The validity of the calculated GFR & GFRAA in patients over 70 years has not been determined. Clinical correlation is essential. Serum or plasma low density lipoprotein (LDL) cholesterol measurement (mass/volume)Ordered By: Fredis Moon on 03-02-2023 Cholesterol in LDL [Mass/Vol] 12 mg/dL 0-130 [facility] Serum or plasma urea nitroge n measurement (mass/volume)Ordered By: Fredis Moon on 03-02-2023 Urea nitrogen [Mass/Vol] 25 mg/dL 7-18 [facility] Thin prep Papanicolaou smear with manual screeningOrdered By: Fredis Moon on 03-02-2023 Thin prep Papanicolaou smear with manual screening 18 U/L 15-37 [facility] Thin prep Papanicolaou smear with manual screening 7 5-15 [facility] Whole blood hemoglobin A1c/t otal hemoglobin ratio (mass fraction)Ordered By: Fredis Moon on 03-02-2023 HbA1c (Bld) [Mass fraction] 7.5 % 3.8-5.6 [facility] Comment on above: Normal < 5.7 % Predi abetic 5.7 - 6.4 % Diabetic >or= 6.5 % Please note range changes. No Panel InformationOrdered By: Yovanny Dempsey on 01-15-2023 Prostate Specific Antigen Total < 0.01 ng/mL 0.0-4.0 [facility] Comment on above: This test was perfor med using the TPSA assay method for the[employer] chemistry system. Values obtained with differentassay methods cannot be used interchangably.When changing PSA assays in the course of monitoring apatient, additional sequential testing should be carriedout to confirm baseline values. Glucose Glucometer (BldC) [M ass/Vol]Ordered By: Pamela Cramer on 12-30-2022 Glucose [Mass/Vol] 170 mg/dL 74-106 [facility] Comment on above: MANAGEMENT OF PATIEN T CARE PER NURSING PROTOCOL Absolute lymphocyte countOrd ered By: Fredis Moon on 11-30-2022 Lymphocytes Auto (Unsp spec) [#/Vol] 1.40 10*3/uL 0.83-4.51 [facility] Basophil percentageOrdered B y: Fredis Moon on 11-30-2022 Basophils/100 WBC (Bld) 0.7 % 0-1 [facility] Bilirubin [Mass/Vol] 0.30 mg/dL 0.20-1.00 [facility] Comment on above: For patients on eltr ombopag therapy, use of [employer] TBIL is not recommended. Chloride [Moles/Vol] 107 mmol/L 98-107 [facility] Cholesterol [Mass/Vol] 122 mg/dL <200 [facility] Comment on above: <200 mg/dL Desirable 200-240 mg/dL Borderline >240 mg/dL High Risk Eosinophils/100 WBC (Bld) 1.4 % 0-5 [facility] Glucose [Mass/Vol] 112 mg/dL 74-106 [facility] Comment on above: Fasting Glucose resu lt from 100 to 125 mg/dL suggests IMPAIRED HOMEOSTASIS per A.D.A. criteria. Neutrophils (Bld) [#/Vol] 5.9 10*3/uL 2.0-7.7 [facility] Neutrophils/100 WBC (Bld) 70.0 % 47-70 [facility] Potassium [Moles/Vol] 4.7 mmol/L 3.5-5.[address] [facility] Protein [Mass/Vol] 6.8 g/dL 6.4-8.2 [facility] Sodium [Moles/Vol] 143 mmol/L 136-145 [facility] Testosterone [Mass/Vol] 39.15 ng/dL [facility] Comment on above: CENTRAL 90% REFERENC E RANGES MALE AGE <50 197.44 - 669.58 ng/dL MALE AGE > or = 50 187.72 - 684.19 ng/dL FEMALE AGE <50 8.38 - 35.01 ng/dL FEMALE AGE > or = 50 <7.00 - 35.92 ng/dL Effective as of 09/17/20 Triglyceride [Mass/Vol] 419 mg/dL <199 [facility] Comment on above: The drugs N-Acetylcy steine and Metamizole may falsely depress this assay. TRIGLYCERIDE IS GREATER THAN 400 mg/dL. LDL RESULT IS INVALID AND WILL NOT BE REPORTED.Serum Triglycerides Reference Interval Normal <150 mg/dL Borderline high 150 - 199 mg/dL High 200 - 499 mg/dL Very High > or = 500 mg/dL WBC (Bld) [#/Vol] 8.4 10*3/uL 4.4-11.0 [facility] Blood erythrocytes count (nu mber/volume)Ordered By: Fredis Moon on 11-30-2022 RBC (Bld) [#/Vol] 4.67 10*6/uL 4.6-6.2 [facility] Blood hemoglobin measurement (mass/volume)Ordered By: Fredis Moon on 11-30-2022 Hemoglobin (Bld) [Mass/Vol] 13.2 g/dL 13.0-16.5 [facility] Blood lymphocytes/100 leukoc ytesOrdered By: Fredis Moon on 11-30-2022 Lymphocytes/100 WBC (Bld) 16.6 % 19-41 [facility] Blood monocytes/100 leukocyt esOrdered By: Fredis Moon on 11-30-2022 Monocytes/100 WBC (Bld) 10.6 % 0-10 [facility] Blood platelet mean volumeOr dered By: Fredis Moon on 11-30-2022 Platelet mean volume (Bld) [Entitic vol] 9.0 fL 6.2-12.0 [facility] Determination of erythrocyte mean corpuscular volume (MCV)Ordered By: Fredis Moon on 11-30-2022 MCV (RBC) [Entitic vol] 88.7 fL 80-94 [facility] Hematocrit Auto (Bld) [Volum e fraction]Ordered By: Fredis Moon on 11-30-2022 Hematocrit (Bld) [Volume fraction] 41.4 % 40-54 [facility] Laboratory - Chemistry and C hemistry - challengeOrdered By: Fredis Moon on 11-30-2022 ALP [Catalytic activity/Vol] 102 U/L 45-117 [facility] ALT [Catalytic activity/Vol] 11 U/L 16-61 [facility] CO2 [Moles/Vol] 28.0 mmol/L 21.0-32.0 [facility] Globulin (S) [Mass/Vol] 3.5 g/dL 2.2-4.2 [facility] Urea nitrogen/Creatinine [Mass ratio] 22.9 mg/mg 10-20 [facility] Laboratory - Hematology and Cell countsOrdered By: Fredis Moon on 11-30-2022 Erythrocyte distribution width (RBC) [Entitic vol] 46.8 fL 35.1-43.9 [facility] Erythrocyte distribution width (RBC) [Ratio] 14.6 % 11.6-14.6 [facility] Immature granulocytes/100 WBC (Bld) 0.700 % 0.0-0.9 [facility] Comment on above: IG% - Immature Granu locytes (promyelocytes, myelocytes and metamyelocytes) > 1% indicates that a LEFT SHIFT is Present. MCH (RBC) [Entitic mass] 28.3 pg 27.0-32.0 [facility] Nucleated RBC/100 WBC (Bld) [Ratio] 0 % 0-5 [facility] MCHC Auto (RBC) [Mass/Vol]Or dered By: Fredis Moon on 11-30-2022 MCHC (RBC) [Mass/Vol] 31.9 g/dL 32-[address] [facility] No Panel InformationOrdered By: Fredis Moon on 11-30-2022 Estimated GFR (MDRD) Amer 84 mL/min >60 [facility] Comment on above: GFR Calc Estimated GFR (MDRD) Non-Af Amer 69 mL/min >60 [facility] Comment on above: Non- GFR Calc Thyroid Stimulating Hormone (TSH) 1.90 uIU/mL 0.358-3.74 [facility] Vitamin D 25-Hydroxy 47.6 ng/mL [facility] Comment on above: Vitamin D 25(OH) Sta tus Range Deficiency <20 ng/mL (50nmol/L) Insufficiency 20 - 30 ng/mL (50 - 75 nmol/L) Sufficiency 30 - 100 ng/mL (75 - 250 nmol/L) Toxicity >100 ng/mL (>250 nmol/L) Platelets bldOrdered By: Fredis Moon on 11-30-2022 Platelets (Bld) [#/Vol] 203 10*3/uL 150-450 [facility] Serum or plasma albumin mt urement (mass/volume)Ordered By: Fredis Moon on 11-30-2022 Albumin [Mass/Vol] 3.3 g/dL 3.2-5.0 [facility] Serum or plasma albumin/glob ulin mass ratioOrdered By: Fredis Moon on 11-30-2022 Albumin/Globulin [Mass ratio] 0.9 {ratio} 0.9-2.4 [facility] Serum or plasma calcium tm urement (mass/volume)Ordered By: Fredis Moon 11-30-2022 Calcium [Mass/Vol] 8.8 mg/dL 8.5-10.1 [facility] Serum or plasma cholesterol in HDL measurement (mass/volume)Ordered By: Fredis Moon 11-30-2022 Cholesterol in HDL [Mass/Vol] 39 mg/dL >40 [facility] Comment on above: The drugs N-Acetylcy steine and Metamizole may falsely depress this assay. Reference Range HDL <40 mg/dL Low HDL Cholesterol HDL >or= 60 mg/dL High HDL Cholesterol Serum or plasma cholesterol in VLDL measurement (mass/volume)Ordered By: Fredis Moon on 11-30-2022 Cholesterol in VLDL [Mass/Vol] TNP [facility] Comment on above: Test not performed Serum or plasma creatinine m easurement (mass/volume)Ordered By: Fredis Moon 11-30-2022 Creatinine [Mass/Vol] 1.09 mg/dL 0.70-1.[address] [facility] Comment on above: The validity of the calculated GFR & GFRAA in patients over 70 years has not been determined. Clinical correlation is essential. Serum or plasma low density lipoprotein (LDL) cholesterol measurement (mass/volume)Ordered By: Fredis Moon 11-30-2022 Cholesterol in LDL [Mass/Vol] TNP [facility] Comment on above: Test not performed Serum or plasma urea nitroge n measurement (mass/volume)Ordered By: Fredis Moon on 11-30-2022 Urea nitrogen [Mass/Vol] 25 mg/dL 7-18 [facility] Thin prep Papanicolaou smear with manual screeningOrdered By: Fredis Moon on 11-30-2022 Thin prep Papanicolaou smear with manual screening 6 U/L 15-37 [facility] Thin prep Papanicolaou smear with manual screening 8 5-15 [facility] Whole blood hemoglobin A1c/t otal hemoglobin ratio (mass fraction)Ordered By: Fredis Moon on 11-30-2022 HbA1c (Bld) [Mass fraction] 7.2 % 3.8-5.6 [facility] Comment on above: Normal < 5.7 % Predi abetic 5.7 - 6.4 % Diabetic >or= 6.5 % Please note range changes. Absolute lymphocyte countOrd ered By: Fredis Moon on 08-27-2022 Lymphocytes Auto (Unsp spec) [#/Vol] 0.96 10*3/uL 0.83-4.51 [facility] Basophil percentageOrdered B y: Fredis Moon on 08-27-2022 Basophils/100 WBC (Bld) 0.9 % 0-1 [facility] Bilirubin [Mass/Vol] 0.40 mg/dL 0.20-1.00 [facility] Comment on above: For patients on eltr ombopag therapy, use of [employer] TBIL is not recommended. Chloride [Moles/Vol] 107 mmol/L 98-107 [facility] Cholesterol [Mass/Vol] 119 mg/dL <200 [facility] Comment on above: <200 mg/dL Desirable 200-240 mg/dL Borderline >240 mg/dL High Risk Eosinophils/100 WBC (Bld) 1.8 % 0-5 [facility] Glucose [Mass/Vol] 163 mg/dL 74-106 [facility] Comment on above: Fasting Glucose resu lt greater than or equal to 126 mg/dL suggests DIABETES MELLITUS per A.D.A. criteria. Neutrophils (Bld) [#/Vol] 3.6 10*3/uL 2.0-7.7 [facility] Neutrophils/100 WBC (Bld) 66.9 % 47-70 [facility] Potassium [Moles/Vol] 4.1 mmol/L 3.5-5.[address] [facility] Protein [Mass/Vol] 6.8 g/dL 6.4-8.2 [facility] Sodium [Moles/Vol] 139 mmol/L 136-145 [facility] Testosterone [Mass/Vol] 58.15 ng/dL [facility] Comment on above: CENTRAL 90% REFERENC E RANGES MALE AGE <50 197.44 - 669.58 ng/dL MALE AGE > or = 50 187.72 - 684.19 ng/dL FEMALE AGE <50 8.38 - 35.01 ng/dL FEMALE AGE > or = 50 <7.00 - 35.92 ng/dL Effective as of 09/17/20 Triglyceride [Mass/Vol] 199 mg/dL <199 [facility] Comment on above: The drugs N-Acetylcy steine and Metamizole may falsely depress this assay.Serum Triglycerides Reference Interval Normal <150 mg/dL Borderline high 150 - 199 mg/dL High 200 - 499 mg/dL Very High > or = 500 mg/dL WBC (Bld) [#/Vol] 5.5 10*3/uL 4.4-11.0 [facility] Blood erythrocytes count (nu mber/volume)Ordered By: Fredis Moon on 08-27-2022 RBC (Bld) [#/Vol] 4.65 10*6/uL 4.6-6.2 [facility] Blood hemoglobin measurement (mass/volume)Ordered By: Fredis Moon on 08-27-2022 Hemoglobin (Bld) [Mass/Vol] 13.5 g/dL 13.0-16.5 [facility] Blood lymphocytes/100 leukoc ytesOrdered By: Fredis Moon on 08-27-2022 Lymphocytes/100 WBC (Bld) 17.6 % 19-41 [facility] Blood monocytes/100 leukocyt esOrdered By: Fredis Moon on 08-27-2022 Monocytes/100 WBC (Bld) 11.7 % 0-10 [facility] Blood platelet mean volumeOr dered By: Fredis Moon on 08-27-2022 Platelet mean volume (Bld) [Entitic vol] 9.4 fL 6.2-12.0 [facility] Determination of erythrocyte mean corpuscular volume (MCV)Ordered By: Fredis Moon on 08-27-2022 MCV (RBC) [Entitic vol] 86.2 fL 80-94 [facility] Hematocrit Auto (Bld) [Volum e fraction]Ordered By: Fredis Moon on 08-27-2022 Hematocrit (Bld) [Volume fraction] 40.1 % 40-54 [facility] Laboratory - Chemistry and C hemistry - challengeOrdered By: Fredis Moon on 08-27-2022 ALP [Catalytic activity/Vol] 95 U/L 45-117 [facility] ALT [Catalytic activity/Vol] 26 U/L 16-61 [facility] CO2 [Moles/Vol] 26.0 mmol/L 21.0-32.0 [facility] Globulin (S) [Mass/Vol] 3.4 g/dL 2.2-4.2 [facility] Urea nitrogen/Creatinine [Mass ratio] 25.5 mg/mg 10-20 [facility] Laboratory - Hematology and Cell countsOrdered By: Fredis Moon on 08-27-2022 Erythrocyte distribution width (RBC) [Entitic vol] 43.4 fL 35.1-43.9 [facility] Erythrocyte distribution width (RBC) [Ratio] 14.0 % 11.6-14.6 [facility] Immature granulocytes/100 WBC (Bld) 1.100 % 0.0-0.9 [facility] Comment on above: IG% - Immature Granu locytes (promyelocytes, myelocytes and metamyelocytes) > 1% indicates that a LEFT SHIFT is Present. MCH (RBC) [Entitic mass] 29.0 pg 27.0-32.0 [facility] Nucleated RBC/100 WBC (Bld) [Ratio] 0 % 0-5 [facility] MCHC Auto (RBC) [Mass/Vol]Or dered By: Fredis Moon on 08-27-2022 MCHC (RBC) [Mass/Vol] 33.7 g/dL 32-[address] [facility] No Panel InformationOrdered By: Fredis Moon on 08-27-2022 Estimated GFR (MDRD) Amer 94 mL/min >60 [facility] Comment on above: GFR Calc Estimated GFR (MDRD) Non-Af Amer 78 mL/min >60 [facility] Comment on above: Non- GFR Calc Thyroid Stimulating Hormone (TSH) 1.92 uIU/mL 0.358-3.74 [facility] Vitamin D 25-Hydroxy 62.6 ng/mL [facility] Comment on above: Vitamin D 25(OH) Sta tus Range Deficiency <20 ng/mL (50nmol/L) Insufficiency 20 - 30 ng/mL (50 - 75 nmol/L) Sufficiency 30 - 100 ng/mL (75 - 250 nmol/L) Toxicity >100 ng/mL (>250 nmol/L) Platelets bldOrdered By: Fredis Moon on 08-27-2022 Platelets (Bld) [#/Vol] 203 10*3/uL 150-450 [facility] Serum or plasma albumin mt urement (mass/volume)Ordered By: Fredis Moon on 08-27-2022 Albumin [Mass/Vol] 3.4 g/dL 3.2-5.0 [facility] Serum or plasma albumin/glob ulin mass ratioOrdered By: Fredis Moon on 08-27-2022 Albumin/Globulin [Mass ratio] 1.0 {ratio} 0.9-2.4 [facility] Serum or plasma calcium mt urement (mass/volume)Ordered By: Fredis Moon on 08-27-2022 Calcium [Mass/Vol] 8.6 mg/dL 8.5-10.1 [facility] Serum or plasma cholesterol in HDL measurement (mass/volume)Ordered By: Fredis Moon on 08-27-2022 Cholesterol in HDL [Mass/Vol] 39 mg/dL >40 [facility] Comment on above: The drugs N-Acetylcy steine and Metamizole may falsely depress this assay. Reference Range HDL <40 mg/dL Low HDL Cholesterol HDL >or= 60 mg/dL High HDL Cholesterol Serum or plasma cholesterol in VLDL measurement (mass/volume)Ordered By: Fredis Moon on 08-27-2022 Cholesterol in VLDL [Mass/Vol] 40 mg/dL 5-40 [facility] Serum or plasma creatinine m easurement (mass/volume)Ordered By: Fredis Moon on 08-27-2022 Creatinine [Mass/Vol] 0.98 mg/dL 0.70-1.[address] [facility] Comment on above: The validity of the calculated GFR & GFRAA in patients over 70 years has not been determined. Clinical correlation is essential. Serum or plasma low density lipoprotein (LDL) cholesterol measurement (mass/volume)Ordered By: Fredis Moon on 08-27-2022 Cholesterol in LDL [Mass/Vol] 40 mg/dL 0-130 [facility] Serum or plasma urea nitroge n measurement (mass/volume)Ordered By: Fredis Moon on 08-27-2022 Urea nitrogen [Mass/Vol] 25 mg/dL 7-18 [facility] Thin prep Papanicolaou smear with manual screeningOrdered By: Fredis Moon on 08-27-2022 Thin prep Papanicolaou smear with manual screening 19 U/L 15-37 [facility] Thin prep Papanicolaou smear with manual screening 6 5-15 [facility] Whole blood hemoglobin A1c/t otal hemoglobin ratio (mass fraction)Ordered By: Fredis Moon on 08-27-2022 HbA1c (Bld) [Mass fraction] 7.0 % 3.8-5.6 [facility] Comment on above: Normal < 5.7 % Predi abetic 5.7 - 6.4 % Diabetic >or= 6.5 % Please note range changes. No Panel InformationOrdered By: Dr. Dempsey on 07-10-2022 Prostate Specific Antigen Total < 0.01 ng/mL 0.0-4.0 [facility] Comment on above: This test was perfor med using the TPSA assay method [facility] the[facility]. Values obtained with differentassay methods cannot be used interchangably.When changing PSA assays in the course of monitoring apatient, additional sequential testing should be carriedout to confirm baseline values. Absolute lymphocyte countOrd ered By: Dr. Moon on 04-30-2022 Lymphocytes Auto (Unsp spec) [#/Vol] 1.01 10*3/uL 0.83-4.51 [facility] Basophil percentageOrdered B y: Dr. Moon on 04-30-2022 Basophils/100 WBC (Bld) 0.9 % 0-1 [facility] Bilirubin [Mass/Vol] 0.40 mg/dL 0.20-1.00 [facility] Comment on above: For patients on eltr ombopag therapy, use of [employer] TBIL is not recommended. Chloride [Moles/Vol] 103 mmol/L 98-107 [facility] Cholesterol [Mass/Vol] 213 mg/dL <200 [facility] Comment on above: <200 mg/dL Desirable 200-240 mg/dL Borderline >240 mg/dL High Risk Eosinophils/100 WBC (Bld) 1.9 % 0-5 [facility] Glucose [Mass/Vol] 129 mg/dL 74-106 [facility] Comment on above: Fasting Glucose resu lt greater than or equal to 126 mg/dL suggests DIABETES MELLITUS per A.D.A. criteria. Neutrophils (Bld) [#/Vol] 4.0 10*3/uL 2.0-7.7 [facility] Neutrophils/100 WBC (Bld) 67.6 % 47-70 [facility] Potassium [Moles/Vol] 4.4 mmol/L 3.5-5.[address] [facility] Protein [Mass/Vol] 7.6 g/dL 6.4-8.2 [facility] Sodium [Moles/Vol] 138 mmol/L 136-145 [facility] Testosterone [Mass/Vol] 66.62 ng/dL [facility] Comment on above: CENTRAL 90% REFERENC E RANGES MALE AGE <50 197.44 - 669.58 ng/dL MALE AGE > or = 50 187.72 - 684.19 ng/dL FEMALE AGE <50 8.38 - 35.01 ng/dL FEMALE AGE > or = 50 <7.00 - 35.92 ng/dL Effective as of 09/17/20 Triglyceride [Mass/Vol] 352 mg/dL <199 [facility] Comment on above: The drugs N-Acetylcy steine and Metamizole may falsely depress this assay.Serum Triglycerides Reference Interval Normal <150 mg/dL Borderline high 150 - 199 mg/dL High 200 - 499 mg/dL Very High > or = 500 mg/dL WBC (Bld) [#/Vol] 5.9 10*3/uL 4.4-11.0 [facility] Blood erythrocytes count (nu mber/volume)Ordered By: Dr. Moon on 04-30-2022 RBC (Bld) [#/Vol] 5.19 10*6/uL 4.6-6.2 [facility] Blood hemoglobin measurement (mass/volume)Ordered By: Dr. Moon on 04-30-2022 Hemoglobin (Bld) [Mass/Vol] 14.4 g/dL 13.0-16.5 [facility] Blood lymphocytes/100 leukoc ytesOrdered By: Dr. Moon on 04-30-2022 Lymphocytes/100 WBC (Bld) 17.3 % 19-41 [facility] Blood monocytes/100 leukocyt esOrdered By: Dr. Moon on 04-30-2022 Monocytes/100 WBC (Bld) 10.6 % 0-10 [facility] Blood platelet mean volumeOr dered By: Dr. Moon on 04-30-2022 Platelet mean volume (Bld) [Entitic vol] 9.6 fL 6.2-12.0 [facility] Determination of erythrocyte mean corpuscular volume (MCV)Ordered By: Dr. Moon on 04-30-2022 MCV (RBC) [Entitic vol] 87.1 fL 80-94 [facility] Hematocrit Auto (Bld) [Volum e fraction]Ordered By: Dr. Moon on 04-30-2022 Hematocrit (Bld) [Volume fraction] 45.2 % 40-54 [facility] Laboratory - Chemistry and C hemistry - challengeOrdered By: Dr. Moon on 04-30-2022 ALP [Catalytic activity/Vol] 95 U/L 45-117 [facility] ALT [Catalytic activity/Vol] 10 U/L 16-61 [facility] CO2 [Moles/Vol] 25.0 mmol/L 21.0-32.0 [facility] Globulin (S) [Mass/Vol] 3.8 g/dL 2.2-4.2 [facility] Urea nitrogen/Creatinine [Mass ratio] 23.4 mg/mg 10-20 [facility] Laboratory - Hematology and Cell countsOrdered By: Dr. Moon on 04-30-2022 Erythrocyte distribution width (RBC) [Entitic vol] 45.9 fL 35.1-43.9 [facility] Erythrocyte distribution width (RBC) [Ratio] 14.5 % 11.6-14.6 [facility] Immature granulocytes/100 WBC (Bld) 1.700 % 0.0-0.9 [facility] Comment on above: IG% - Immature Granu locytes (promyelocytes, myelocytes and metamyelocytes) > 1% indicates that a LEFT SHIFT is Present. MCH (RBC) [Entitic mass] 27.7 pg 27.0-32.0 [facility] Nucleated RBC/100 WBC (Bld) [Ratio] 0 % 0-5 [facility] MCHC Auto (RBC) [Mass/Vol]Or dered By: Dr. Moon on 04-30-2022 MCHC (RBC) [Mass/Vol] 31.9 g/dL 32-[address] [facility] No Panel InformationOrdered By: Dr. Moon on 04-30-2022 Estimated GFR (MDRD) Amer 72 mL/min >60 [facility] Comment on above: GFR Calc Estimated GFR (MDRD) Non-Af Amer 60 mL/min >60 [facility] Comment on above: Non- GFR Calc Prostate Specific Antigen Screen 0.02 ng/mL 0.00-4.00 [facility] Comment on above: This test was perfor med using the TPSA assay method for the[employer] chemistry system. Values obtained with differentassay methods cannot be used interchangably.When changing PSA assays in the course of monitoring apatient, additional sequential testing should be carriedout to confirm baseline values. Thyroid Stimulating Hormone (TSH) 1.87 uIU/mL 0.358-3.74 [facility] Vitamin D 25-Hydroxy 47.6 ng/mL [facility] Comment on above: Vitamin D 25(OH) Sta tus Range Deficiency <20 ng/mL (50nmol/L) Insufficiency 20 - 30 ng/mL (50 - 75 nmol/L) Sufficiency 30 - 100 ng/mL (75 - 250 nmol/L) Toxicity >100 ng/mL (>250 nmol/L) Platelets bldOrdered By: Dr. Moon on 04-30-2022 Platelets (Bld) [#/Vol] 213 10*3/uL 150-450 [facility] Serum or plasma albumin mt urement (mass/volume)Ordered By: Dr. Moon on 04-30-2022 Albumin [Mass/Vol] 3.8 g/dL 3.2-5.0 [facility] Serum or plasma albumin/glob ulin mass ratioOrdered By: Dr. Moon on 04-30-2022 Albumin/Globulin [Mass ratio] 1.0 {ratio} 0.9-2.4 [facility] Serum or plasma calcium mt urement (mass/volume)Ordered By: Dr. Moon on 04-30-2022 Calcium [Mass/Vol] 9.6 mg/dL 8.5-10.1 [facility] Serum or plasma cholesterol in HDL measurement (mass/volume)Ordered By: Dr. oMon on 04-30-2022 Cholesterol in HDL [Mass/Vol] 46 mg/dL >40 [facility] Comment on above: The drugs N-Acetylcy steine and Metamizole may falsely depress this assay. Reference Range HDL <40 mg/dL Low HDL Cholesterol HDL >or= 60 mg/dL High HDL Cholesterol Serum or plasma cholesterol in VLDL measurement (mass/volume)Ordered By: Dr. Moon on 04-30-2022 Cholesterol in VLDL [Mass/Vol] 70 mg/dL 5-40 [facility] Serum or plasma creatinine m easurement (mass/volume)Ordered By: Dr. Moon on 04-30-2022 Creatinine [Mass/Vol] 1.24 mg/dL 0.70-1.[address] [facility] Comment on above: The validity of the calculated GFR & GFRAA in patients over 70 years has not been determined. Clinical correlation is essential. Serum or plasma low density lipoprotein (LDL) cholesterol measurement (mass/volume)Ordered By: Dr. Moon on 04-30-2022 Cholesterol in LDL [Mass/Vol] 97 mg/dL 0-130 [facility] Serum or plasma urea nitroge n measurement (mass/volume)Ordered By: Dr. Moon on 04-30-2022 Urea nitrogen [Mass/Vol] 29 mg/dL 7-18 [facility] Thin prep Papanicolaou smear with manual screeningOrdered By: Dr. Moon on 04-30-2022 Thin prep Papanicolaou smear with manual screening 16 U/L 15-37 [facility] Thin prep Papanicolaou smear with manual screening 10 5-15 [facility] Whole blood hemoglobin A1c/t otal hemoglobin ratio (mass fraction)Ordered By: Dr. Moon on 04-30-2022 HbA1c (Bld) [Mass fraction] 7.1 % 3.8-5.6 [facility] Comment on above: Normal < 5.7 % Predi abetic 5.7 - 6.4 % Diabetic >or= 6.5 % Please note range changes. Absolute lymphocyte countOrd ered By: Dr. Moon on 01-29-2022 Lymphocytes Auto (Unsp spec) [#/Vol] 1.15 10*3/uL 0.83-4.51 [facility] Basophil percentageOrdered B y: Dr. Moon on 01-29-2022 Basophils/100 WBC (Bld) 0.9 % 0-1 [facility] Bilirubin [Mass/Vol] 0.40 mg/dL 0.20-1.00 [facility] Comment on above: For patients on eltr ombopag therapy, use of [employer] TBIL is not recommended. Chloride [Moles/Vol] 103 mmol/L 98-107 [facility] Cholesterol [Mass/Vol] 116 mg/dL <200 [facility] Comment on above: <200 mg/dL Desirable 200-240 mg/dL Borderline >240 mg/dL High Risk Eosinophils/100 WBC (Bld) 1.6 % 0-5 [facility] Glucose [Mass/Vol] 126 mg/dL 74-106 [facility] Comment on above: Fasting Glucose resu lt greater than or equal to 126 mg/dL suggests DIABETES MELLITUS per A.D.A. criteria. Neutrophils (Bld) [#/Vol] 3.5 10*3/uL 2.0-7.7 [facility] Neutrophils/100 WBC (Bld) 62.4 % 47-70 [facility] Potassium [Moles/Vol] 4.1 mmol/L 3.5-5.[address] [facility] Protein [Mass/Vol] 7.4 g/dL 6.4-8.2 [facility] Sodium [Moles/Vol] 140 mmol/L 136-145 [facility] Testosterone [Mass/Vol] 83.70 ng/dL [facility] Comment on above: CENTRAL 90% REFERENC E RANGES MALE AGE <50 197.44 - 669.58 ng/dL MALE AGE > or = 50 187.72 - 684.19 ng/dL FEMALE AGE <50 8.38 - 35.01 ng/dL FEMALE AGE > or = 50 <7.00 - 35.92 ng/dL Effective as of 09/17/20 Triglyceride [Mass/Vol] 194 mg/dL <199 [facility] Comment on above: The drugs N-Acetylcy steine and Metamizole may falsely depress this assay.Serum Triglycerides Reference Interval Normal <150 mg/dL Borderline high 150 - 199 mg/dL High 200 - 499 mg/dL Very High > or = 500 mg/dL WBC (Bld) [#/Vol] 5.5 10*3/uL 4.4-11.0 [facility] Blood erythrocytes count (nu mber/volume)Ordered By: Dr. Moon on 01-29-2022 RBC (Bld) [#/Vol] 5.14 10*6/uL 4.6-6.2 [facility] Blood hemoglobin measurement (mass/volume)Ordered By: Dr. Moon on 01-29-2022 Hemoglobin (Bld) [Mass/Vol] 14.4 g/dL 13.0-16.5 [facility] Blood lymphocytes/100 leukoc ytesOrdered By: Dr. Moon on 01-29-2022 Lymphocytes/100 WBC (Bld) 20.8 % 19-41 [facility] Blood monocytes/100 leukocyt esOrdered By: Dr. Moon on 01-29-2022 Monocytes/100 WBC (Bld) 13.4 % 0-10 [facility] Blood platelet mean volumeOr dered By: Dr. Moon on 01-29-2022 Platelet mean volume (Bld) [Entitic vol] 9.6 fL 6.2-12.0 [facility] Determination of erythrocyte mean corpuscular volume (MCV)Ordered By: Dr. Moon on 01-29-2022 MCV (RBC) [Entitic vol] 86.8 fL 80-94 [facility] Hematocrit Auto (Bld) [Volum e fraction]Ordered By: Dr. Moon on 01-29-2022 Hematocrit (Bld) [Volume fraction] 44.6 % 40-54 [facility] Laboratory - Chemistry and C hemistry - challengeOrdered By: Dr. Moon on 01-29-2022 ALP [Catalytic activity/Vol] 99 U/L 45-117 [facility] ALT [Catalytic activity/Vol] 13 U/L 16-61 [facility] CO2 [Moles/Vol] 32.0 mmol/L 21.0-32.0 [facility] Globulin (S) [Mass/Vol] 3.7 g/dL 2.2-4.2 [facility] Urea nitrogen/Creatinine [Mass ratio] 25.0 mg/mg 10-20 [facility] Laboratory - Hematology and Cell countsOrdered By: Dr. Moon on 01-29-2022 Erythrocyte distribution width (RBC) [Entitic vol] 44.6 fL 35.1-43.9 [facility] Erythrocyte distribution width (RBC) [Ratio] 14.1 % 11.6-14.6 [facility] Immature granulocytes/100 WBC (Bld) 0.900 % 0.0-0.9 [facility] Comment on above: IG% - Immature Granu locytes (promyelocytes, myelocytes and metamyelocytes) > 1% indicates that a LEFT SHIFT is Present. MCH (RBC) [Entitic mass] 28.0 pg 27.0-32.0 [facility] Nucleated RBC/100 WBC (Bld) [Ratio] 0 % 0-5 [facility] MCHC Auto (RBC) [Mass/Vol]Or dered By: Dr. Moon on 01-29-2022 MCHC (RBC) [Mass/Vol] 32.3 g/dL 32-[address] [facility] No Panel InformationOrdered By: Dr. Moon on 01-29-2022 Estimated GFR (MDRD) Amer 81 mL/min >60 [facility] Comment on above: GFR Calc Estimated GFR (MDRD) Non-Af Amer 67 mL/min >60 [facility] Comment on above: Non- GFR Calc Thyroid Stimulating Hormone (TSH) 2.69 uIU/mL 0.358-3.74 [facility] Vitamin D 25-Hydroxy 58.1 ng/mL [facility] Comment on above: Vitamin D 25(OH) Sta tus Range Deficiency <20 ng/mL (50nmol/L) Insufficiency 20 - 30 ng/mL (50 - 75 nmol/L) Sufficiency 30 - 100 ng/mL (75 - 250 nmol/L) Toxicity >100 ng/mL (>250 nmol/L) Platelets bldOrdered By: Dr. Moon on 01-29-2022 Platelets (Bld) [#/Vol] 189 10*3/uL 150-450 [facility] Serum or plasma albumin mt urement (mass/volume)Ordered By: Dr. Moon on 01-29-2022 Albumin [Mass/Vol] 3.7 g/dL 3.2-5.0 [facility] Serum or plasma albumin/glob ulin mass ratioOrdered By: Dr. Moon on 01-29-2022 Albumin/Globulin [Mass ratio] 1.0 {ratio} 0.9-2.4 [facility] Serum or plasma calcium mt urement (mass/volume)Ordered By: Dr. Moon on 01-29-2022 Calcium [Mass/Vol] 9.2 mg/dL 8.5-10.1 [facility] Serum or plasma cholesterol in HDL measurement (mass/volume)Ordered By: Dr. Moon on 01-29-2022 Cholesterol in HDL [Mass/Vol] 43 mg/dL >40 [facility] Comment on above: The drugs N-Acetylcy steine and Metamizole may falsely depress this assay. Reference Range HDL <40 mg/dL Low HDL Cholesterol HDL >or= 60 mg/dL High HDL Cholesterol Serum or plasma cholesterol in VLDL measurement (mass/volume)Ordered By: Dr. Moon on 01-29-2022 Cholesterol in VLDL [Mass/Vol] 39 mg/dL 5-40 [facility] Serum or plasma creatinine m easurement (mass/volume)Ordered By: Dr. Moon on 01-29-2022 Creatinine [Mass/Vol] 1.12 mg/dL 0.70-1.[address] [facility] Comment on above: The validity of the calculated GFR & GFRAA in patients over 70 years has not been determined. Clinical correlation is essential. Serum or plasma low density lipoprotein (LDL) cholesterol measurement (mass/volume)Ordered By: Dr. Moon on 01-29-2022 Cholesterol in LDL [Mass/Vol] 34 mg/dL 0-130 [facility] Serum or plasma urea nitroge n measurement (mass/volume)Ordered By: Dr. Moon on 01-29-2022 Urea nitrogen [Mass/Vol] 28 mg/dL 7-18 [facility] Thin prep Papanicolaou smear with manual screeningOrdered By: Dr. Moon on 01-29-2022 Thin prep Papanicolaou smear with manual screening 13 U/L 15-37 [facility] Thin prep Papanicolaou smear with manual screening 5 5-15 [facility] Whole blood hemoglobin A1c/t otal hemoglobin ratio (mass fraction)Ordered By: Dr. Moon on 01-29-2022 HbA1c (Bld) [Mass fraction] 7.3 % 3.8-5.6 [facility] Comment on above: Normal < 5.7 % Predi abetic 5.7 - 6.4 % Diabetic >or= 6.5 % Please note range changes. No Panel InformationOrdered By: MARY JANE Gregorio on 01-14-2022 Prostate Specific Antigen Total < 0.01 ng/mL 0.0-4.0 [facility] Comment on above: This test was perfor med using the TPSA assay method for the[employer] chemistry system. Values obtained with differentassay methods cannot be used interchangably.When changing PSA assays in the course of monitoring apatient, additional sequential testing should be carriedout to confirm baseline values. Absolute lymphocyte counton 10-30-2021 Lymphocytes Auto (Unsp spec) [#/Vol] 1.16 10*3/uL 0.83-4.51 [facility] Work Phone: Basophil percentageon 2021 Basophils/100 WBC (Bld) 0.4 % 0-1 [facility] Work Phone: Bilirubin [Mass/Vol] 0.40 mg/dL 0.20-1.00 [facility] Work Phone: Comment on above: For patients on eltr ombopag therapy, use of [employer] TBIL is not recommended. Chloride [Moles/Vol] 105 mmol/L 98-107 [facility] Work Phone: Cholesterol [Mass/Vol] 95 mg/dL <200 [facility] Work Phone: Comment on above: <200 mg/dL Desirable 200-240 mg/dL Borderline >240 mg/dL High Risk Eosinophils/100 WBC (Bld) 3.1 % 0-5 [facility] Work Phone: Glucose [Mass/Vol] 133 mg/dL 74-106 [facility] Work Phone: Comment on above: Fasting Glucose resu lt greater than or equal to 126 mg/dL suggests DIABETES MELLITUS per A.D.A. criteria. Neutrophils (Bld) [#/Vol] 4.4 10*3/uL 2.0-7.7 [facility] Work Phone: Neutrophils/100 WBC (Bld) 65.0 % 47-70 [facility] Work Phone: Potassium [Moles/Vol] 4.6 mmol/L 3.5-5.[address] [facility] Work Phone: Protein [Mass/Vol] 7.4 g/dL 6.4-8.2 [facility] Work Phone: Sodium [Moles/Vol] 140 mmol/L 136-145 [facility] Work Phone: Testosterone [Mass/Vol] 34.24 ng/dL [facility] Work Phone: Comment on above: CENTRAL 90% REFERENC E RANGES MALE AGE <50 197.44 - 669.58 ng/dL MALE AGE > or = 50 187.72 - 684.19 ng/dL FEMALE AGE <50 8.38 - 35.01 ng/dL FEMALE AGE > or = 50 <7.00 - 35.92 ng/dL Effective as of 09/17/20 Triglyceride [Mass/Vol] 163 mg/dL <199 [facility] Work Phone: Comment on above: The drugs N-Acetylcy steine and Metamizole may falsely depress this assay.Serum Triglycerides Reference Interval Normal <150 mg/dL Borderline high 150 - 199 mg/dL High 200 - 499 mg/dL Very High > or = 500 mg/dL WBC (Bld) [#/Vol] 6.8 10*3/uL 4.4-11.0 [facility] Work Phone: Blood erythrocytes count (nu mber/volume)on 10-30-2021 RBC (Bld) [#/Vol] 4.82 10*6/uL 4.6-6.2 [facility]: Blood hemoglobin measurement (mass/volume)on 10-30-2021 Hemoglobin (Bld) [Mass/Vol] 13.7 g/dL 13.0-16.5 [facility] Work Phone: Blood lymphocytes/100 leukoc yteson 10-30-2021 Lymphocytes/100 WBC (Bld) 17.1 % 19-41 [facility] Work Phone: Blood monocytes/100 leukocyt eson 10-30-2021 Monocytes/100 WBC (Bld) 13.4 % 0-10 [facility] Work Phone: Blood platelet mean volumeon 10-30-2021 Platelet mean volume (Bld) [Entitic vol] 9.5 fL 6.2-12.0 [facility] Work Phone: Determination of erythrocyte mean corpuscular volume (MCV)on 10-30-2021 MCV (RBC) [Entitic vol] 87.6 fL 80-94 [facility] Work Phone: Hematocrit Auto (Bld) [Volum e fraction]on 10-30-2021 Hematocrit (Bld) [Volume fraction] 42.2 % 40-54 [facility] Work Phone: Laboratory - Chemistry and C hemistry - challengeon 10-30-2021 ALP [Catalytic activity/Vol] 103 U/L 45-117 [facility] Work Phone: ALT [Catalytic activity/Vol] 15 U/L 16-61 [facility] Work Phone: CO2 [Moles/Vol] 25.0 mmol/L 21.0-32.0 [facility] Work Phone: Globulin (S) [Mass/Vol] 3.9 g/dL 2.2-4.2 [facility] Work Phone: Urea nitrogen/Creatinine [Mass ratio] 23.0 mg/mg 10-20 [facility] Work Phone: Laboratory - Hematology and Cell countson 10-30-2021 Erythrocyte distribution width (RBC) [Entitic vol] 44.1 fL 35.1-43.9 [facility] Work Phone: Erythrocyte distribution width (RBC) [Ratio] 13.8 % 11.6-14.6 [facility] Work Phone: Immature granulocytes/100 WBC (Bld) 1.000 % 0.0-0.9 [facility] Work Phone: Comment on above: IG% - Immature Granu locytes (promyelocytes, myelocytes and metamyelocytes) > 1% indicates that a LEFT SHIFT is Present. MCH (RBC) [Entitic mass] 28.4 pg 27.0-32.0 [facility] Work Phone: Nucleated RBC/100 WBC (Bld) [Ratio] 0 % 0-5 [facility] Work Phone: MCHC Auto (RBC) [Mass/Vol]on 10-30-2021 MCHC (RBC) [Mass/Vol] 32.5 g/dL 32-[address] [facility] Work Phone: No Panel Informationon 10-30 Estimated GFR (MDRD) Amer 80 mL/min >60 [facility] Work Phone: Comment on above: GFR Calc Estimated GFR (MDRD) Non-Af Amer 66 mL/min >60 [facility] Work Phone: Comment on above: Non- GFR Calc Thyroid Stimulating Hormone (TSH) 2.52 uIU/mL 0.358-3.74 [facility] Work Phone: Vitamin D 25-Hydroxy 71.0 ng/mL [facility] Work Phone: Comment on above: Vitamin D 25(OH) Sta tus Range Deficiency <20 ng/mL (50nmol/L) Insufficiency 20 - 30 ng/mL (50 - 75 nmol/L) Sufficiency 30 - 100 ng/mL (75 - 250 nmol/L) Toxicity >100 ng/mL (>250 nmol/L) Platelets bldon 10-30-2021 Platelets (Bld) [#/Vol] 199 10*3/uL 150-450 [facility] Work Phone: Serum or plasma albumin mt urement (mass/volume)on 10-30-2021 Albumin [Mass/Vol] 3.5 g/dL 3.2-5.0 [facility] Work Phone: Serum or plasma albumin/glob ulin mass ratioon 10-30-2021 Albumin/Globulin [Mass ratio] 0.9 {ratio} 0.9-2.4 [facility] Work Phone: Serum or plasma calcium mt urement (mass/volume)on 10-30-2021 Calcium [Mass/Vol] 9.4 mg/dL 8.5-10.1 [facility] Work Phone: Serum or plasma cholesterol in HDL measurement (mass/volume)on 10-30-2021 Cholesterol in HDL [Mass/Vol] 48 mg/dL >40 [facility] Work Phone: Comment on above: The drugs N-Acetylcy steine and Metamizole may falsely depress this assay. Reference Range HDL <40 mg/dL Low HDL Cholesterol HDL >or= 60 mg/dL High HDL Cholesterol Serum or plasma cholesterol in VLDL measurement (mass/volume)on 10-30-2021 Cholesterol in VLDL [Mass/Vol] 33 mg/dL 5-40 [facility] Work Phone: Serum or plasma creatinine m easurement (mass/volume)on 10-30-2021 Creatinine [Mass/Vol] 1.13 mg/dL 0.70-1.[address] [facility] Work Phone: Comment on above: The validity of the calculated GFR & GFRAA in patients over 70 years has not been determined. Clinical correlation is essential. Serum or plasma low density lipoprotein (LDL) cholesterol measurement (mass/volume)on 10-30-2021 Cholesterol in LDL [Mass/Vol] 14 mg/dL 0-130 [facility] Work Phone: Serum or plasma urea nitroge n measurement (mass/volume)on 10-30-2021 Urea nitrogen [Mass/Vol] 26 mg/dL 7-18 [facility] Work Phone: Thin prep Papanicolaou smear with manual screeningon 10-30-2021 Thin prep Papanicolaou smear with manual screening 9 U/L 15-37 [facility] Work Phone: Thin prep Papanicolaou smear with manual screening 10 5-15 [facility] Work Phone: Whole blood hemoglobin A1c/t otal hemoglobin ratio (mass fraction)on 10-30-2021 HbA1c (Bld) [Mass fraction] 7.0 % 3.8-5.6 [facility] Work Phone: Comment on above: Normal < 5.7 % Predi abetic 5.7 - 6.4 % Diabetic >or= 6.5 % Please note range changes. Absolute lymphocyte counton 08-15-2021 Lymphocytes Auto (Unsp spec) [#/Vol] 1.20 10*3/uL 0.83-4.51 [facility] Work Phone: Basophil percentageon 2021 Basophils/100 WBC (Bld) 0.6 % 0-1 [facility] Work Phone: Bilirubin [Mass/Vol] 0.40 mg/dL 0.20-1.00 [facility] Work Phone: Comment on above: For patients on eltr ombopag therapy, use of [employer] TBIL is not recommended. Chloride [Moles/Vol] 104 mmol/L 98-107 [facility] Work Phone: Cholesterol [Mass/Vol] 105 mg/dL <200 [facility] Work Phone: Comment on above: <200 mg/dL Desirable 200-240 mg/dL Borderline >240 mg/dL High Risk Eosinophils/100 WBC (Bld) 1.5 % 0-5 [facility] Work Phone: Glucose [Mass/Vol] 140 mg/dL 74-106 [facility] Work Phone: Comment on above: Fasting Glucose resu lt greater than or equal to 126 mg/dL suggests DIABETES MELLITUS per A.D.A. criteria. Neutrophils (Bld) [#/Vol] 4.4 10*3/uL 2.0-7.7 [facility] Work Phone: Neutrophils/100 WBC (Bld) 66.8 % 47-70 [facility] Work Phone: Potassium [Moles/Vol] 4.1 mmol/L 3.5-5.[address] [facility] Work Phone: Protein [Mass/Vol] 7.4 g/dL 6.4-8.2 [facility] Work Phone: Sodium [Moles/Vol] 139 mmol/L 136-145 [facility] Work Phone: Testosterone [Mass/Vol] 39.30 ng/dL [facility] Work Phone: Comment on above: CENTRAL 90% REFERENC E RANGES MALE AGE <50 197.44 - 669.58 ng/dL MALE AGE > or = 50 187.72 - 684.19 ng/dL FEMALE AGE <50 8.38 - 35.01 ng/dL FEMALE AGE > or = 50 <7.00 - 35.92 ng/dL Effective as of 09/17/20 Triglyceride [Mass/Vol] 178 mg/dL <199 [facility] Work Phone: Comment on above: The drugs N-Acetylcy steine and Metamizole may falsely depress this assay.Serum Triglycerides Reference Interval Normal <150 mg/dL Borderline high 150 - 199 mg/dL High 200 - 499 mg/dL Very High > or = 500 mg/dL WBC (Bld) [#/Vol] 6.5 10*3/uL 4.4-11.0 [facility] Work Phone: Blood erythrocytes count (nu mber/volume)on 08-15-2021 RBC (Bld) [#/Vol] 5.00 10*6/uL 4.6-6.2 [facility] Work Phone: Blood hemoglobin measurement (mass/volume)on 08-15-2021 Hemoglobin (Bld) [Mass/Vol] 14.1 g/dL 13.0-16.5 [facility] Work Phone: Blood lymphocytes/100 leukoc yteson 08-15-2021 Lymphocytes/100 WBC (Bld) 18.4 % 19-41 [facility] Work Phone: Blood monocytes/100 leukocyt eson 08-15-2021 Monocytes/100 WBC (Bld) 11.5 % 0-10 [facility] Work Phone: Blood platelet mean volumeon 08-15-2021 Platelet mean volume (Bld) [Entitic vol] 9.5 fL 6.2-12.0 [facility] Work Phone: Determination of erythrocyte mean corpuscular volume (MCV)on 08-15-2021 MCV (RBC) [Entitic vol] 86.2 fL 80-94 [facility] Work Phone: Hematocrit Auto (Bld) [Volum e fraction]on 08-15-2021 Hematocrit (Bld) [Volume fraction] 43.1 % 40-54 [facility] Work Phone: Laboratory - Chemistry and C hemistry - challengeon 08-15-2021 ALP [Catalytic activity/Vol] 91 U/L 45-117 [facility] Work Phone: ALT [Catalytic activity/Vol] 12 U/L 16-61 [facility] Work Phone: CO2 [Moles/Vol] 26.0 mmol/L 21.0-32.0 [facility] Work Phone: Globulin (S) [Mass/Vol] 3.7 g/dL 2.2-4.2 [facility] Work Phone: Urea nitrogen/Creatinine [Mass ratio] 22.9 mg/mg 10-20 [facility] Work Phone: Laboratory - Hematology and Cell countson 08-15-2021 Erythrocyte distribution width (RBC) [Entitic vol] 44.4 fL 35.1-43.9 [facility] Work Phone: Erythrocyte distribution width (RBC) [Ratio] 14.3 % 11.6-14.6 [facility] Work Phone: Immature granulocytes/100 WBC (Bld) 1.200 % 0.0-0.9 [facility] Work Phone: Comment on above: IG% - Immature Granu locytes (promyelocytes, myelocytes and metamyelocytes) > 1% indicates that a LEFT SHIFT is Present. MCH (RBC) [Entitic mass] 28.2 pg 27.0-32.0 [facility] Work Phone: Nucleated RBC/100 WBC (Bld) [Ratio] 0 % 0-5 [facility] Work Phone: MCHC Auto (RBC) [Mass/Vol]on 08-15-2021 MCHC (RBC) [Mass/Vol] 32.7 g/dL 32-36 [facility] Work [facility]: No Panel Informationon 08-15 Estimated GFR (MDRD) Amer 77 mL/min >60 [facility] Work Phone: Comment on above: GFR Calc Estimated GFR (MDRD) Non-Af Amer 63 mL/min >60 [facility] Work Phone: Comment on above: Non- GFR Calc Thyroid Stimulating Hormone (TSH) 2.38 uIU/mL 0.358-3.74 [facility] Work Phone: Vitamin D 25-Hydroxy 45.4 ng/mL [facility] Work Phone: Comment on above: Vitamin D 25(OH) Sta tus Range Deficiency <20 ng/mL (50nmol/L) Insufficiency 20 - 30 ng/mL (50 - 75 nmol/L) Sufficiency 30 - 100 ng/mL (75 - 250 nmol/L) Toxicity >100 ng/mL (>250 nmol/L) Platelets bldon 08-15-2021 Platelets (Bld) [#/Vol] 205 10*3/uL 150-450 [facility] Work Phone: Serum or plasma albumin mt urement (mass/volume)on 08-15-2021 Albumin [Mass/Vol] 3.7 g/dL 3.2-5.0 [facility] Work Phone: Serum or plasma albumin/glob ulin mass ratioon 08-15-2021 Albumin/Globulin [Mass ratio] 1.0 {ratio} 0.9-2.4 [facility] Work Phone: Serum or plasma calcium mt urement (mass/volume)on 08-15-2021 Calcium [Mass/Vol] 9.4 mg/dL 8.5-10.1 [facility] Work Phone: Serum or plasma cholesterol in HDL measurement (mass/volume)on 08-15-2021 Cholesterol in HDL [Mass/Vol] 44 mg/dL >40 [facility] Work Phone: Comment on above: The drugs N-Acetylcy steine and Metamizole may falsely depress this assay. Reference Range HDL <40 mg/dL Low HDL Cholesterol HDL >or= 60 mg/dL High HDL Cholesterol Serum or plasma cholesterol in VLDL measurement (mass/volume)on 08-15-2021 Cholesterol in VLDL [Mass/Vol] 36 mg/dL 5-40 [facility] Work Phone: Serum or plasma creatinine m easurement (mass/volume)on 08-15-2021 Creatinine [Mass/Vol] 1.18 mg/dL 0.70-1.[address] [facility] Work Phone: Comment on above: The validity of the calculated GFR & GFRAA in patients over 70 years has not been determined. Clinical correlation is essential. Serum or plasma low density lipoprotein (LDL) cholesterol measurement (mass/volume)on 08-15-2021 Cholesterol in LDL [Mass/Vol] 25 mg/dL 0-130 [facility] Work Phone: Serum or plasma urea nitroge n measurement (mass/volume)on 08-15-2021 Urea nitrogen [Mass/Vol] 27 mg/dL 7-18 [facility] Work Phone: Thin prep Papanicolaou smear with manual screeningon 08-15-2021 Thin prep Papanicolaou smear with manual screening 15 U/L 15-37 [facility] Work Phone: Thin prep Papanicolaou smear with manual screening 9 5-15 [facility] Work Phone: Whole blood hemoglobin A1c/t otal hemoglobin ratio (mass fraction)on 08-15-2021 HbA1c (Bld) [Mass fraction] 7.2 % 3.8-5.6 [facility] Work Phone: Comment on above: Normal < 5.7 % Predi abetic 5.7 - 6.4 % Diabetic >or= 6.5 % Please note range changes. Basophil percentageon 2021 Chloride [Moles/Vol] 106 mmol/L 98-107 [facility] Work Phone: Glucose [Mass/Vol] 231 mg/dL 74-106 [facility] Work Phone: Comment on above: Glucose result great er than or equal to 200 mg/dLsuggests DIABETES MELLITUS per A.D.A. criteria. Potassium [Moles/Vol] 4.2 mmol/L 3.5-5.[address] [facility] Work Phone: Sodium [Moles/Vol] 140 mmol/L 136-145 [facility] Work Phone: Testosterone [Mass/Vol] 40.82 ng/dL [facility] Work Phone: Comment on above: CENTRAL 90% REFERENC E RANGES MALE AGE <50 197.44 - 669.58 ng/dL MALE AGE > or = 50 187.72 - 684.19 ng/dL FEMALE AGE <50 8.38 - 35.01 ng/dL FEMALE AGE > or = 50 <7.00 - 35.92 ng/dL Effective as of 09/17/20 Laboratory - Chemistry and C hemistry - challengeon 07-11-2021 CO2 [Moles/Vol] 27.0 mmol/L 21.0-32.0 [facility] Work Phone: Urea nitrogen/Creatinine [Mass ratio] 22.7 mg/mg 12-11 [facility] Work Phone: No Panel Informationon 07-11 Estimated GFR (MDRD) Amer 83 mL/min >60 [facility] Work Phone: Comment on above: GFR Calc Estimated GFR (MDRD) Non-Af Amer 69 mL/min >60 [facility] Work Phone: Comment on above: Non- GFR Calc Prostate Specific Antigen Total < 0.01 ng/mL 0.0-4.0 [facility] Work Phone: Comment on above: This test was perfor med using the TPSA assay method for the[employer] chemistry system. Values obtained with differentassay methods cannot be used interchangably.When changing PSA assays in the course of monitoring apatient, additional sequential testing should be carriedout to confirm baseline values. Serum or plasma calcium mt urement (mass/volume)on 07-11-2021 Calcium [Mass/Vol] 9.1 mg/dL 8.5-10.1 [facility] Work Phone: Serum or plasma creatinine m easurement (mass/volume)on 07-11-2021 Creatinine [Mass/Vol] 1.10 mg/dL 0.70-1.[address] [facility] Work Phone: Comment on above: The validity of the calculated GFR & GFRAA in patients over 70 years has not been determined. Clinical correlation is essential. Serum or plasma urea nitroge n measurement (mass/volume)on 07-11-2021 Urea nitrogen [Mass/Vol] 25 mg/dL 09-08 [facility] Work Phone: Thin prep Papanicolaou smear with manual screeningon 07-11-2021 Thin prep Papanicolaou smear with manual screening 7 5- [facility] Work Phone: CNOVon 05-29-2021 CNOV Office Visit (UCWSTR ) FARHANA THRASHER ([id number]) 1940 M Date Time Provider Department 05/29/21 9:45 AM YOSELIN KHAN [facility] During your visit today, we recorded the following information about you: Temperature Pulse Respiration Blood pressure 97.8 degrees 59/minute 18/minute 136/74 Weight 91.4 kg Yoselin Khan APRN.INSURANCE BUSINESS ANALYST 05/29/2021 10:25 AM Signed Subjective Patient came in because he was exposed to covid a week ago and has no symptoms at this time. The history is provided by the patient. No medical language specialist was used. Review of Systems Constitutional: [...] - COVID WITH FLUA+B, ROUTINE Yoselin Khan APRN.INSURANCE BUSINESS ANALYST Referring Provider: SELF [200] Allergies As of Date: 05/29/2021 Noted Allergy Reaction ADHESIVE TAPE-SILICONES 05/23/2021 2 - Rash Date Reviewed: 05/29/2021 Reviewed by: Urszula Lowry LPN - Fully Assessed Reason for Visit: COVID exposure [Other] Cmt: COVID exposure Primary Visit Diagnosis:Close exposure to COVID-19 virus [Z20.822] Order(s):COVID WITH FLUA+B, ROUTINE [SQCOVFLU] Order #: [id number] FUTURE COVID WITH FLUA+B, ROUTINE [SQCOVFLU] Order #: [id number]. #:[id number] Prescriptions as of 05/29/2021 - insulin needles, [...] directed) - blood sugar diagnostic (ACCU-CHEK CLARITZA) [facility] test strip CHECK BLOOD SUGARS 3-4 TIMES DAILY - calcium carbonate 600 mg-cholecalciferol 200 units (CALCIUM 600 + D,3,) 600 mg(1,500mg) -200 unit ORAL Tab (more content not included)... Normal [facility] CNOVon 05-23-2021 CNOV Office Visit (UCWSTR ) FARHANA THRASHER ([id number]) 1940 M Date Time Provider Department 05/23/21 11:30 AM ALIX VALLE During your visit today, we recorded the following information about you: Temperature Pulse Respiration Blood pressure 97.5 degrees 67/minute 18/minute 118/68 Weight 93.4 kg Alix Valle APRN.CNP 05/23/2021 3:33 PM Signed This note was created using [employer]. Subjective Farhana Thrasher is a 81 year [...] ASYMPTOMATIC ELECTIVE COVID-19 Sadiq Massey TEACHING PROVIDER (Physician/PA/GAS TURBINE MECHANIC) NOTE OF PERSONAL INVOLVEMENT IN CARE: I have personally seen and examined the patient and performed the medical decision-making components. I have reviewed the Advanced Practice Registered Nurse (GAS TURBINE MECHANIC) Student's documentation and verified the findings in the note as written. Any additions or changes are noted in everton (more content not included)... Normal [facility] SARS-CoV-2 RNA Resp Ql BRIAN+p robeon 05-23-2021 SARS-CoV-2 (COVID-19) RNA BRIAN+probe Ql (Resp) COVID 19 RESULT: SARS-CoV-2 (Agent of COVID-19) Not Detected by RT-PCR or equivalent method. This test was developed and its performance characteristics determined by [facility] [place]. This test has been authorized by FDA under an Emergency Use Authorization (EUA). This test has been validated in accordance with the FDA's Guidance Document Policy for Diagnostics Testing in Laboratories Certified to Perform High Complexity Testing under CLIA prior to Emergency use Authorization for Coronavirus Disease 2019 during the Public Health Emergency issued on April 22, 2019. Test performed by [facility], [facility] [place], [address] [place] [address]. Normal [facility] Comment on above: Performed By: #### [id number] #### [facility] CLIA [id number] [address] [place] [address] [place] Absolute lymphocyte counton 05-12-2021 Lymphocytes Auto (Unsp spec) [#/Vol] 1.26 10*3/uL 0.83-4.51 [facility] Work Phone: Basophil percentageon 2021 Basophils/100 WBC (Bld) 0.5 % 0-1 [facility] Work Phone: Bilirubin [Mass/Vol] 0.40 mg/dL 0.20-1.00 [facility] Work Phone: Comment on above: For patients on eltr ombopag therapy, use of [employer] TBIL is not recommended. Chloride [Moles/Vol] 106 mmol/L 98-107 [facility] Work Phone: Cholesterol [Mass/Vol] 113 mg/dL <200 [facility] Work Phone: Comment on above: <200 mg/dL Desirable 200-240 mg/dL Borderline >240 mg/dL High Risk Eosinophils/100 WBC (Bld) 1.1 % 0-5 [facility] Work Phone: Glucose [Mass/Vol] 139 mg/dL 74-106 [facility] Work Phone: Comment on above: Fasting Glucose resu lt greater than or equal to 126 mg/dL suggests DIABETES MELLITUS per A.D.A. criteria. Neutrophils (Bld) [#/Vol] 5.0 10*3/uL 2.0-7.7 [facility] Work Phone: Neutrophils/100 WBC (Bld) 67.8 % 47-70 [facility] Work Phone: Potassium [Moles/Vol] 4.5 mmol/L 3.5-5.[address] [facility] Work Phone: Protein [Mass/Vol] 6.8 g/dL 6.4-8.2 [facility] Work Phone: Sodium [Moles/Vol] 138 mmol/L 136-145 [facility] Work Phone: Testosterone [Mass/Vol] 222.68 ng/dL [facility] Work Phone: Comment on above: CENTRAL 90% REFERENC E RANGES MALE AGE <50 197.44 - 669.58 ng/dL MALE AGE > or = 50 187.72 - 684.19 ng/dL FEMALE AGE <50 8.38 - 35.01 ng/dL FEMALE AGE > or = 50 <7.00 - 35.92 ng/dL Effective as of 09/17/20 Triglyceride [Mass/Vol] 277 mg/dL <199 [facility] Work Phone: Comment on above: The drugs N-Acetylcy steine and Metamizole may falsely depress this assay.Serum Triglycerides Reference Interval Normal <150 mg/dL Borderline high 150 - 199 mg/dL High 200 - 499 mg/dL Very High > or = 500 mg/dL WBC (Bld) [#/Vol] 7.3 10*3/uL 4.4-11.0 [facility] Work Phone: Blood erythrocytes count (nu mber/volume)on 05-12-2021 RBC (Bld) [#/Vol] 4.61 10*6/uL 4.6-6.2 [facility] Work Phone: Blood hemoglobin measurement (mass/volume)on 05-12-2021 Hemoglobin (Bld) [Mass/Vol] 13.3 g/dL 13.0-16.5 [facility] Work Phone: Blood lymphocytes/100 leukoc yteson 05-12-2021 Lymphocytes/100 WBC (Bld) 17.2 % 19-41 [facility] Work Phone: Blood monocytes/100 leukocyt eson 05-12-2021 Monocytes/100 WBC (Bld) 12.4 % 0-10 [facility] Work Phone: Blood platelet mean volumeon 05-12-2021 Platelet mean volume (Bld) [Entitic vol] 9.4 fL 6.2-12.0 [facility] Work Phone: Determination of erythrocyte mean corpuscular volume (MCV)on 05-12-2021 MCV (RBC) [Entitic vol] 87.6 fL 80-94 [facility] Work Phone: Hematocrit Auto (Bld) [Volum e fraction]on 05-12-2021 Hematocrit (Bld) [Volume fraction] 40.4 % 40-54 [facility] Work Phone: Laboratory - Chemistry and C hemistry - challengeon 05-12-2021 ALP [Catalytic activity/Vol] 78 U/L 45-117 [facility] Work Phone: ALT [Catalytic activity/Vol] 9 U/L 16-61 [facility] Work Phone: CO2 [Moles/Vol] 26.0 mmol/L 21.0-32.0 [facility] Work Phone: Globulin (S) [Mass/Vol] 3.3 g/dL 2.2-4.2 [facility] Work Phone: Urea nitrogen/Creatinine [Mass ratio] 19.0 mg/mg 10-20 [facility] Work Phone: Laboratory - Hematology and Cell countson 05-12-2021 Erythrocyte distribution width (RBC) [Entitic vol] 43.7 fL 35.1-43.9 [facility] Work Phone: Erythrocyte distribution width (RBC) [Ratio] 13.8 % 11.6-14.6 [facility] Work Phone: Immature granulocytes/100 WBC (Bld) 1.000 % 0.0-0.9 [facility] Work Phone: Comment on above: IG% - Immature Granu locytes (promyelocytes, myelocytes and metamyelocytes) > 1% indicates that a LEFT SHIFT is Present. MCH (RBC) [Entitic mass] 28.9 pg 27.0-32.0 [facility] Work Phone: Nucleated RBC/100 WBC (Bld) [Ratio] 0 % 0-5 [facility] Work Phone: MCHC Auto (RBC) [Mass/Vol]on 05-12-2021 MCHC (RBC) [Mass/Vol] 32.9 g/dL 32-[address] [facility] Work Phone: No Panel Informationon 05-12 Estimated GFR (MDRD) Amer 74 mL/min >60 [facility] Work Phone: Comment on above: GFR Calc Estimated GFR (MDRD) Non-Af Amer 62 mL/min >60 [facility] Work Phone: Comment on above: Non- GFR Calc Thyroid Stimulating Hormone (TSH) 2.16 uIU/mL 0.358-3.74 [facility] Work Phone: Vitamin D 25-Hydroxy 41.9 ng/mL [facility] Work Phone: Comment on above: Vitamin D 25(OH) Sta tus Range Deficiency <20 ng/mL (50nmol/L) Insufficiency 20 - 30 ng/mL (50 - 75 nmol/L) Sufficiency 30 - 100 ng/mL (75 - 250 nmol/L) Toxicity >100 ng/mL (>250 nmol/L) Platelets bldon 05-12-2021 Platelets (Bld) [#/Vol] 213 10*3/uL 150-450 [facility] Work Phone: Serum or plasma albumin mt urement (mass/volume)on 05-12-2021 Albumin [Mass/Vol] 3.5 g/dL 3.2-5.0 [facility] Work Phone: Serum or plasma albumin/glob ulin mass ratioon 05-12-2021 Albumin/Globulin [Mass ratio] 1.1 {ratio} 0.9-2.4 [facility] Work Phone: Serum or plasma calcium mt urement (mass/volume)on 05-12-2021 Calcium [Mass/Vol] 9.2 mg/dL 8.5-10.1 [facility] Work Phone: Serum or plasma cholesterol in HDL measurement (mass/volume)on 05-12-2021 Cholesterol in HDL [Mass/Vol] 39 mg/dL >40 [facility] Work Phone: Comment on above: The drugs N-Acetylcy steine and Metamizole may falsely depress this assay. Reference Range HDL <40 mg/dL Low HDL Cholesterol HDL >or= 60 mg/dL High HDL Cholesterol Serum or plasma cholesterol in VLDL measurement (mass/volume)on 05-12-2021 Cholesterol in VLDL [Mass/Vol] 55 mg/dL 5-40 [facility] Work Phone: Serum or plasma creatinine m easurement (mass/volume)on 05-12-2021 Creatinine [Mass/Vol] 1.21 mg/dL 0.70-1.[address] [facility] Work Phone: Comment on above: The validity of the calculated GFR & GFRAA in patients over 70 years has not been determined. Clinical correlation is essential. Serum or plasma low density lipoprotein (LDL) cholesterol measurement (mass/volume)on 05-12-2021 Cholesterol in LDL [Mass/Vol] 19 mg/dL 0-130 [facility] Work Phone: Serum or plasma urea nitroge n measurement (mass/volume)on 05-12-2021 Urea nitrogen [Mass/Vol] 23 mg/dL 7-18 [facility] Work Phone: Thin prep Papanicolaou smear with manual screeningon 05-12-2021 Thin prep Papanicolaou smear with manual screening 13 U/L 15-37 [facility] Work Phone: Thin prep Papanicolaou smear with manual screening 6 5-15 [facility] Work Phone: Whole blood hemoglobin A1c/t otal hemoglobin ratio (mass fraction)on 05-12-2021 HbA1c (Bld) [Mass fraction] 7.4 % 3.8-5.6 [facility] Work Phone: Comment on above: Normal < 5.7 % Predi abetic 5.7 - 6.4 % Diabetic >or= 6.5 % Please note range changes. Basophil percentageon 2021 Testosterone [Mass/Vol] 42.20 ng/dL [facility] Work Phone: Comment on above: CENTRAL 90% REFERENC E RANGES MALE AGE <50 197.44 - 669.58 ng/dL MALE AGE > or = 50 187.72 - 684.19 ng/dL FEMALE AGE <50 8.38 - 35.01 ng/dL FEMALE AGE > or = 50 <7.00 - 35.92 ng/dL Effective as of 09/17/20 No Panel Informationon 04-04 Prostate Specific Antigen Total < 0.01 ng/mL 0.0-4.0 [facility] Work Phone: Comment on above: This test was perfor med using the TPSA assay method for the[employer] chemistry system. Values obtained with differentassay methods cannot be used interchangably.When changing PSA assays in the course of monitoring apatient, additional sequential testing should be carriedout to confirm baseline values. Absolute lymphocyte counton 02-11-2021 Lymphocytes Auto (Unsp spec) [#/Vol] 1.21 10*3/uL 0.83-4.51 [facility] Work Phone: Basophil percentageon 2020 Bilirubin [Mass/Vol] 0.50 mg/dL 0.20-1.00 [facility] Work Phone: Comment on above: For patients on eltr ombopag therapy, use of [employer] TBIL is not recommended. Chloride [Moles/Vol] 101 mmol/L 98-107 [facility] Work Phone: Cholesterol [Mass/Vol] 107 mg/dL <200 [facility] Work Phone: Comment on above: <200 mg/dL Desirable 200-240 mg/dL Borderline >240 mg/dL High Risk Eosinophils/100 WBC (Bld) 1.5 % 0-5 [facility] Work Phone: Glucose [Mass/Vol] 109 mg/dL 74-106 [facility] Work Phone: Comment on above: Fasting Glucose resu lt from 100 to 125 mg/dL suggests IMPAIRED HOMEOSTASIS per A.D.A. criteria.Please note revised GLUCOSE reference range effective 2017. Neutrophils (Bld) [#/Vol] 3.8 10*3/uL 2.0-7.7 [facility] Work Phone: Potassium [Moles/Vol] 4.5 mmol/L 3.5-5.[address] [facility] Work Phone: Protein [Mass/Vol] 7.2 g/dL 6.4-8.2 [facility] Work Phone: Sodium [Moles/Vol] 140 mmol/L 136-145 [facility] Work Phone: Testosterone [Mass/Vol] 71.79 ng/dL [facility] Work Phone: Comment on above: CENTRAL 90% REFERENC E RANGES MALE AGE <50 197.44 - 669.58 ng/dL MALE AGE > or = 50 187.72 - 684.19 ng/dL FEMALE AGE <50 8.38 - 35.01 ng/dL FEMALE AGE > or = 50 <7.00 - 35.92 ng/dL Effective as of 09/17/20 Triglyceride [Mass/Vol] 168 mg/dL [facility] Work Phone: Comment on above: The drugs N-Acetylcy steine and Metamizole may falsely depress this assay.Serum Triglycerides Reference Interval Normal <150 mg/dL Borderline high 150 - 199 mg/dL High 200 - 499 mg/dL Very High > or = 500 mg/dL WBC (Bld) [#/Vol] 5.9 10*3/uL 4.4-11.0 [facility] Work Phone: Blood erythrocytes count (nu mber/volume)on 02-11-2021 RBC (Bld) [#/Vol] 5.45 10*6/uL 4.6-6.2 [facility] Work Phone: Blood hemoglobin measurement (mass/volume)on 02-11-2021 Hemoglobin (Bld) [Mass/Vol] 14.2 g/dL 13.0-16.5 [facility] Work Phone: Blood lymphocytes/100 leukoc yteson 02-11-2021 Lymphocytes/100 WBC (Bld) 20.6 % 19-41 [facility] Work Phone: Blood manual differential co mment interpretation (narrative result)on 02-11-2021 Manual differential comment Jones (Bld) [Interp] SCANNED [facility] Work Phone: Blood monocytes/100 leukocyt eson 02-11-2021 Monocytes/100 WBC (Bld) 11.6 % 0-10 [facility] Work Phone: Blood platelet mean volumeon 02-11-2021 Platelet mean volume (Bld) [Entitic vol] 8.8 fL 6.2-12.0 [facility] Work Phone: Determination of erythrocyte mean corpuscular volume (MCV)on 02-11-2021 MCV (RBC) [Entitic vol] 80.0 fL 80-94 [facility] Work Phone: Hematocrit Auto (Bld) [Volum e fraction]on 02-11-2021 Hematocrit (Bld) [Volume fraction] 43.6 % 40-54 [facility] Work Phone: Laboratory - Chemistry and C hemistry - challengeon 02-11-2021 ALP [Catalytic activity/Vol] 83 U/L 45-117 [facility] Work Phone: ALT [Catalytic activity/Vol] 18 U/L 16-61 [facility] Work Phone: CO2 [Moles/Vol] 31.0 mmol/L 21.0-32.0 [facility] Work Phone: Globulin (S) [Mass/Vol] 3.7 g/dL 2.2-4.2 [facility] Work Phone: Urea nitrogen/Creatinine [Mass ratio] 21.1 mg/mg 10-20 [facility] Work Phone: Laboratory - Hematology and Cell countson 02-11-2021 Anisocytosis [facility]l [facility]Bld) [facility]: Basophils/100 WBC (Unsp spec) 1.0 % 0-1 [facility] Work Phone: Erythrocyte distribution width (RBC) [Entitic vol] 58.9 fL 35.1-43.9 [facility] Work Phone: Erythrocyte distribution width (RBC) [Ratio] 20.7 % 11.6-14.6 [facility] Work Phone: Immature granulocytes/100 WBC (Bld) 0.900 % 0.0-0.9 [facility] Work Phone: Comment on above: IG% - Immature Granu locytes (promyelocytes, myelocytes and metamyelocytes) > 1% indicates that a LEFT SHIFT is Present. MCH (RBC) [Entitic mass] 26.1 pg 27.0-32.0 [facility] Work Phone: Neutrophils/100 WBC (Bld) 64.4 % 47-70 [facility] Work Phone: Nucleated RBC/100 WBC (Bld) [Ratio] 0 % 0-5 [facility] Work Phone: MCHC Auto (RBC) [Mass/Vol]on 02-11-2021 MCHC (RBC) [Mass/Vol] 32.6 g/dL 32-[address] [facility] Work Phone: No Panel Informationon 02-11 Estimated GFR (MDRD) Amer 84 mL/min >60 [facility] Work Phone: Comment on above: GFR Calc Estimated GFR (MDRD) Non-Af Amer 69 mL/min >60 [facility] Work Phone: Comment on above: Non- GFR Calc Thyroid Stimulating Hormone (TSH) 2.30 uIU/mL 0.358-3.74 [facility] Work Phone: Vitamin D 25-Hydroxy 49.2 ng/mL [facility] Work Phone: Comment on above: Vitamin D 25(OH) Sta tus Range Deficiency <20 ng/mL (50nmol/L) Insufficiency 20 - 30 ng/mL (50 - 75 nmol/L) Sufficiency 30 - 100 ng/mL (75 - 250 nmol/L) Toxicity >100 ng/mL (>250 nmol/L) Platelets bldon 02-11-2021 Platelets (Bld) [#/Vol] 185 10*3/uL 150-450 [facility] Work Phone: Serum or plasma albumin mt urement (mass/volume)on 02-11-2021 Albumin [Mass/Vol] 3.5 g/dL 3.2-5.0 [facility] Work Phone: Serum or plasma albumin/glob ulin mass ratioon 02-11-2021 Albumin/Globulin [Mass ratio] 0.9 {ratio} 0.9-2.4 [facility] Work Phone: Serum or plasma calcium mt urement (mass/volume)on 02-11-2021 Calcium [Mass/Vol] 9.4 mg/dL 8.5-10.1 [facility] Work Phone: Serum or plasma cholesterol in HDL measurement (mass/volume)on 02-11-2021 Cholesterol in HDL [Mass/Vol] 49 mg/dL [facility] Work Phone: Comment on above: The drugs N-Acetylcy steine and Metamizole may falsely depress this assay. Reference Range HDL <40 mg/dL Low HDL Cholesterol HDL >or= 60 mg/dL High HDL Cholesterol Serum or plasma cholesterol in VLDL measurement (mass/volume)on 02-11-2021 Cholesterol in VLDL [Mass/Vol] 34 mg/dL 5-40 [facility] Work Phone: Serum or plasma creatinine m easurement (mass/volume)on 02-11-2021 Creatinine [Mass/Vol] 1.09 mg/dL 0.70-1.[address] [facility] Work Phone: Comment on above: The validity of the calculated GFR & GFRAA in patients over 70 years has not been determined. Clinical correlation is essential. Serum or plasma low density lipoprotein (LDL) cholesterol measurement (mass/volume)on 02-11-2021 Cholesterol in LDL [Mass/Vol] 24 mg/dL 0-130 [facility] Work Phone: Serum or plasma urea nitroge n measurement (mass/volume)on 02-11-2021 Urea nitrogen [Mass/Vol] 23 mg/dL 7-18 [facility] Work Phone: Thin prep Papanicolaou smear with manual screeningon 02-11-2021 Thin prep Papanicolaou smear with manual screening 13 U/L 15-37 [facility] Work Phone: Thin prep Papanicolaou smear with manual screening 8 5-15 [facility] Work Phone: Whole blood hemoglobin A1c/t otal hemoglobin ratio (mass fraction)on 02-11-2021 HbA1c (Bld) [Mass fraction] 7.0 % 3.8-5.6 [facility] Work Phone: Comment on above: Normal < 5.7 % Predi abetic 5.7 - 6.4 % Diabetic >or= 6.5 % Please note range changes. 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-2016 Left ventricular Ejection fraction 60 % Invalid Interpretation Code [facility] Work Phone: Chart Maintenanceon 07-31-19 17 HbA1c (Bld) [Mass fraction] 7.9 % Invalid Interpretation Code [facility] Work Phone: Office Visit: Consult- Typw 2 diabeteson 05-14-2016 Adolescent depression screening assessment Adolescent depression screening assessment Invalid Interpretation Code [facility] Work Phone: Adult depression screening assessment Adult depression screening assessment Invalid Interpretation Code [facility] Work Phone: Dietary management education, guidance, and counseling (procedure) yes Invalid Interpretation Code [facility] Work Phone: Documentation of current medications (procedure) Done Invalid Interpretation Code [facility] Work Phone: [phone] Fall risk assessment No Invalid Interpretation Code [facility] Work Phone: [phone] Tobacco smoking status Former Invalid Interpretation Code [facility] Work Phone: Tobacco use status [facility] Former smoker Invalid Interpretation Code [facility] Work Phone: Clinical Lists Update: 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 ABNORMAL Invalid Interpretation Code [facility] Work Phone: GE use only - for [employer] import when terms are not otherwise specified 396 ms Invalid Interpretation Code [facility] Work Phone: Heart rate 53 /min Invalid Interpretation Code [facility] Work Phone: Interpretation Atrial Bradycardia P:QRS - 1:1, Abnormal P axis, H Rate 53-Left axis -anterior fascicular block. ABNORMAL Invalid Interpretation Code [facility] Work Phone: [phone] P [place] -47 deg Invalid Interpretation Code [facility] Work Phone: [phone] P wave axis, electrocardiogram -47 deg Invalid Interpretation Code [facility] Work Phone: MS Interval 158 ms Invalid Interpretation Code [facility] Work Phone: [phone] MS interval, electrocardiogram 158 ms Invalid Interpretation Code [facility] Work Phone: QRS axis, electrocardiogram -34 deg Invalid Interpretation Code [facility] Work Phone: QRS Duration 112 ms Invalid Interpretation Code [facility] Work Phone: QRS duration, electrocardiogram 112 ms Invalid Interpretation Code [facility] Work Phone: QT Interval new path ms Invalid Interpretation Code [facility] Work Phone: QT interval, electrocardiogram new path ms Invalid Interpretation Code [employer] [facility] Work Phone: QTc [place] 396 ms Invalid Interpretation Code [facility] Work Phone: T [place] -1 deg Invalid Interpretation Code [facility] Work Phone: T wave axis, electrocardiogram -1 deg Invalid Interpretation Code [employer] [facility] Work Phone: Clinical Lists Update: 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 10-02-2015 Albumin [Mass/Vol] 3.3 g/dL [facility] [employer] [facility] Work Phone: Alkaline phosphatase (ALP) 84 U/L Invalid Interpretation Code [place] [facility] Work Phone: ALP (Bld) [Catalytic activity/Vol] 84 U/L Invalid Interpretation Code [employer] [facility] Work Phone: ALT [Catalytic activity/Vol] 25 U/L Invalid Interpretation Code [employer] [facility] Work Phone: Anion gap 8 mmol/L Invalid Interpretation Code [place] [employer] [facility] Work Phone: Anion gap [Moles/Vol] 8 mmol/L Invalid Interpretation Code [employer] [facility] Work Phone: AST [Catalytic activity/Vol] 22 U/L Invalid Interpretation Code [employer] [facility] Work Phone: Bilirubin [Mass/Vol] 0.30 mg/dL Invalid Interpretation Code [employer] [facility] Work Phone: Calcium [Mass/Vol] 8.4 mg/dL Low [facility] [employer] [facility] Work Phone: Chloride [Moles/Vol] 103 mmol/L Invalid Interpretation Code [employer] [facility] Work Phone: Cholesterol [Mass/Vol] 99 mg/dL Invalid Interpretation Code [employer] [facility] Work Phone: Cholesterol in HDL [Mass/Vol] 34 mg/dL Low [facility] Work Phone: Cholesterol in LDL [Mass/Vol] -12 mg/dL Low [facility] Work Phone: CO2 26.0 mmol/L Invalid Interpretation Code [facility] Work Phone: [phone] CO2 (BldV) [Partial pressure] 26.0 mmol/L Invalid Interpretation Code [facility] Work Phone: Creatinine [Mass/Vol] 1.24 mg/dL Invalid Interpretation Code [facility] Work Phone: Erythrocyte distribution width (RBC) [Ratio] 13.6 % Invalid Interpretation Code [facility] Work Phone: Erythrocyte distribution width Auto Ratio (RBC) 13.6 % Invalid Interpretation Code [facility] Work Phone: [phone] Erythrocytes (RBC) 4.26 10*6/uL Low [facility] Work Phone: [phone] Globulin 3.4 g/dL Invalid Interpretation Code [facility] Work Phone: [phone] globulin, serum 3.4 Invalid Interpretation Code [facility] Work Phone: Glucose [Mass/Vol] 164 mg/dL High [facility] Work Phone: Hematocrit (Bld) [Volume fraction] 37.1 % Low [facility] Work Phone: Hematocrit (HCT) 37.1 % Low [facility] Work Phone: [phone] Hemoglobin (Bld) [Mass/Vol] 12.4 g/dL Low [facility] Work Phone: Lipoprotein.pre-beta [Mass/Vol] 77 mg/dL High [facility] Work Phone: MCH 29.1 pg Invalid Interpretation Code [facility] Work Phone: [phone] MCH (RBC) [Entitic mass] 29.1 pg Invalid Interpretation Code [facility] Work Phone: MCHC (RBC) [Mass/Vol] 33.4 g/dL Invalid Interpretation Code [facility] Work Phone: MCHC mass conc (RBC) 33.4 g/dL Invalid Interpretation Code [facility] Work Phone: [phone] MCV 87.1 fL Invalid Interpretation Code [facility] Work Phone: [phone] MCV (RBC) [Entitic vol] 87.1 fL Invalid Interpretation Code [facility] Work Phone: Platelet mean volume (Bld) [Entitic vol] 10.3 fL Invalid Interpretation Code [facility] Work Phone: Platelets 179 10*3/mm3 Invalid Interpretation Code [facility] Work Phone: [phone] Platelets (Bld) [#/Vol] 179 10*3/uL Invalid Interpretation Code [facility] Work Phone: PMV by Johnathan 10.3 fL Invalid Interpretation Code [facility] Work Phone: [phone] Potassium [Moles/Vol] 4.5 mmol/L Invalid Interpretation Code [facility] Work Phone: Protein [Mass/Vol] 6.7 g/dL Invalid Interpretation Code [facility] Work Phone: RBC (Bld) [#/Vol] 4.26 10*6/uL Low [facility] Work Phone: Sodium [Moles/Vol] 137 mmol/L Invalid Interpretation Code [facility] Work Phone: Thyroid stimulating hormone (TSH) 1.92 u[iU]/mL Invalid Interpretation Code [facility] Work Phone: [phone] Triglyceride [Mass/Vol] 383 mg/dL High [facility] Work Phone: TSH Qn 1.92 m[IU]/L Invalid Interpretation Code [facility] Work Phone: Urea nitrogen [Mass/Vol] 22 mg/dL High [employer] [facility] Work Phone: Urea nitrogen/Creatinine [Mass ratio] 17.7 mg/mg Invalid Interpretation Code [employer] [facility] Work Phone: WBC (Bld) [#/Vol] 6.4 10*3/uL Invalid Interpretation Code [employer] [facility] Work Phone: WBC (Leukocytes) 6.4 10*3/uL Invalid Interpretation Code [facility] Work Phone: basophils as percent of blood leukocytes, manual count 0.5 % Invalid Interpretation Code [employer] Work Phone: eosinophils as percent of blood leukocytes, manual count 1.9 % Invalid Interpretation Code [employer] [facility] Work Phone: Lymphocytes/100 leukocytes 26.8 % Invalid Interpretation Code [facility] Work Phone: Lymphocytes/100 WBC (Bld) 26.8 % Invalid Interpretation Code [employer] [facility] Work Phone: Monocytes/100 leukocytes 9.2 % Invalid Interpretation Code [facility] Work Phone: Monocytes/100 WBC (Bld) 9.2 % Invalid Interpretation Code [employer] Work Phone: neutrophils, band form as percent of blood leukocytes, manual count 61.4 % Invalid Interpretation Code [employer] [facility] Work Phone: Office Visit: MMMon 05-08-19 15 cardiac risk group C Invalid Interpretation Code [employer] [facility] Work Phone: General cardiovascular disease 10Y risk [#] [place] N/A Invalid Interpretation Code [facility] Work Phone: Office Visit: Consult- Typw 2 diabeteson 02-22-2014 Colonoscopy (procedure) Colonoscopy (procedure) Invalid Interpretation Code [facility] Work Phone: External Other: Preferred Me thod of Contacton 09-28-2013 methcontact secmsg Invalid Interpretation Code [facility] Work Phone: Patient's prefered method of contact secmsg Invalid Interpretation Code [facility] Work Phone: Clinical Lists Update: 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 Fredis Moon MD Work Phone: [facility] 10-02-2024 11:34-0400 Body mass index (BMI) [Ratio] 33 kg/m2 Dr. Fredis Moon MD Work Phone: [facility] 10-02-2024 11:34-0400 Body weight 92.[address] Fredis Moon MD Work Phone: [facility] 10-02-2024 11:34-0400 Diastolic blood pressure 52 mm[Hg] Dr. Fredis Moon MD Work Phone: [facility] 10-02-2024 11:34-0400 Heart rate 64 /min Dr. Fredis Moon MD Work Phone: [facility] 10-02-2024 11:34-0400 Respiratory rate 18 /min Dr. Fredis Moon MD Work Phone: [facility] 10-02-2024 11:34-0400 Systolic blood pressure 97 mm[Hg] Dr. Fredis Moon MD Work Phone: [facility] 09-29-2024 08:14-0400 Body weight 94.[address] Fredis Moon MD Work Phone: [facility] 09-11-2024 10:57-0400 Body height 167.[address] Fredis Moon MD Work Phone: [facility] 09-11-2024 10:57-0400 Body weight 93.[address] Fredis Moon MD Work Phone: 7(984)441-034044 [place] [address] 09-08-2024 13:37-0400 Body temperature 98 [degF] Dr. Fredis Moon MD Work Phone: 4(886)701-345544 [place] [address] 09-08-2024 13:37-0400 Diastolic blood pressure 63 mm[Hg] Dr. Fredis Moon MD Work Phone: 5(781)488-499885 [address] 09-08-2024 13:37-0400 Heart rate 54 /min Dr. Fredis Moon MD Work Phone: 3(930)262-011144 [place] [address] 09-08-2024 13:37-0400 Respiratory rate 18 /min Dr. Fredis Moon MD Work Phone: 7(213)291-845485 [address] 09-08-2024 13:37-0400 SaO2% (BldA) [Mass fraction] 98 % Dr. Fredis Moon MD Work Phone: [facility] 09-08-2024 13:37-0400 Systolic blood pressure 160 mm[Hg] Dr. Fredis Moon MD Work Phone: [facility] 09-08-2024 10:34-0400 Body mass index (BMI) [Ratio] 33.1 kg/m2 Dr. Fredis Moon MD Work Phone: [facility] 09-08-2024 10:34-0400 Body weight 93.[address] Fredis Moon MD Work Phone: [facility] 09-08-2024 09:59-0400 Body height 167.[address] Fredis Moon MD Work Phone: [facility] 09-01-2024 08:23-0400 Body weight 93.[address] Fredis Moon MD Work Phone: 4(481)993-738947 [place] [address] 08-03-2024 07:09-0400 Body height 167.[address] Fredis Moon MD Work Phone: 1(751)080-292447 [place] [address] 08-03-2024 07:09-0400 Body weight 94.[address] Fredis Moon MD Work Phone: 8(266)858-087647 [place] [address] 07-06-2024 08:22-0400 Body height 167.[address] Fredis Moon MD Work Phone: 0(733)592-090947 [place] [address] 07-06-2024 08:22-0400 Body mass index (BMI) [Ratio] 33.2 kg/m2 Dr. Fredis Moon MD Work Phone: 5(755)659-140647 [place] [address] 07-06-2024 08:22-0400 Body weight 93.[address] Fredis Moon MD Work Phone: 8(453)050-691047 [place] [address] 07-06-2024 08:22-0400 Diastolic blood pressure 72 mm[Hg] Dr. Fredis Moon MD Work Phone: 9(099)281-785447 [place] [address] 07-06-2024 08:22-0400 Heart rate 59 /min Dr. Fredis Moon MD Work Phone: 3(002)288-520447 [place] [address] 07-06-2024 08:22-0400 Respiratory rate 18 /min Dr. Fredis Moon MD Work Phone: 6(384)651-818247 [place] [address] 07-06-2024 08:22-0400 SaO2% (BldA) [Mass fraction] 97 % Dr. Fredis Moon MD Work Phone: 1(060)383-835347 [place] [address] 07-06-2024 08:22-0400 Systolic blood pressure 125 mm[Hg] Dr. Fredis Moon MD Work Phone: 4(048)698-052147 [place] [address] 07-04-2024 10:21-0400 Body mass index (BMI) [Ratio] 34.3 kg/m2 Dr. Fredis Moon MD Work Phone: 7(617)621-982947 [place] [address] 07-04-2024 09:41-0400 Diastolic blood pressure 50 mm[Hg] Dr. Fredis Moon MD Work Phone: 6(197)360-012047 [place] [address] 07-04-2024 09:41-0400 Heart rate 56 /min Dr. Fredis Moon MD Work Phone: [facility] 07-04-2024 09:41-0400 SaO2% (BldA) [Mass fraction] 97 % Dr. Fredis Moon MD Work Phone: [facility] 07-04-2024 09:41-0400 Systolic blood pressure 122 mm[Hg] Dr. Fredis Moon MD Work Phone: [facility] 07-04-2024 09:28-0400 Body weight 96.[address] Fredis Moon MD Work Phone: [facility] 06-22-2024 11:18-0400 Diastolic blood pressure 67 mm[Hg] Miguel Angel Shaqsky [employer] - INSURANCE BUSINESS ANALYST Work Phone: [facility] 06-22-2024 11:18-0400 Heart rate 60 /min Miguel Angel Evangelinajuan carlos [employer] MECH[employer]IC - INSURANCE BUSINESS ANALYST Work Phone: [facility] 06-22-2024 11:18-0400 Systolic blood pressure 129 mm[Hg] Miguel Angel Evangelinay [employer] MECHANIC - INSURANCE BUSINESS ANALYST Work Phone: [facility] 06-22-2024 11:13-0400 Body mass index (BMI) [Ratio] 32.42 kg/m2 Miguel Angel Evangelinay [employer] MECHANIC - INSURANCE BUSINESS ANALYST Work Phone: [facility] 06-22-2024 11:13-0400 Body weight 93.89 kg Miguel Agnel Evangelinay [employer] MECHANIC - INSURANCE BUSINESS ANALYST Work Phone: [facility] 06-14-2024 10:54-0400 Body temperature 98.8 [degF] Dr. Fredis Moon MD Work Phone: [facility] 06-14-2024 10:54-0400 Diastolic blood pressure 46 mm[Hg] Dr. Fredis Moon MD Work Phone: [facility] 06-14-2024 10:54-0400 Heart rate 52 /min Dr. Fredis Moon MD Work Phone: [facility] 06-14-2024 10:54-0400 Respiratory rate 18 /min Dr. Fredis Moon MD Work Phone: [facility] 06-14-2024 10:54-0400 SaO2% (BldA) [Mass fraction] 98 % Dr. Fredis Moon MD Work Phone: 7(653)067-023944 [place] [address] 06-14-2024 10:54-0400 Systolic blood pressure 139 mm[Hg] Dr. Fredis Moon MD Work Phone: 5(882)134-280744 [place] [address] 06-13-2024 10:00-0400 Body mass index (BMI) [Ratio] 32.8 kg/m2 Dr. Fredis Moon MD Work Phone: 4(983)581-630844 [place] [address] 06-13-2024 10:00-0400 Body weight 92.[address] Fredis Moon MD Work Phone: 5(436)493-540447 [place] [address] 06-07-2024 14:29-0400 Body height 167.[address] Fredis Moon MD Work Phone: 6(300)932-435047 [place] [address] 06-07-2024 14:29-0400 Body weight 91.[address] Fredis Moon MD Work Phone: 1(295)525-593147 [place] [address] 06-07-2024 08:31-0400 Heart rate 51 /min Dr. Fredis Moon MD Work Phone: 2(901)093-697347 [place] [address] 06-07-2024 08:26-0400 Body temperature 97.3 [degF] Dr. Fredis Moon MD Work Phone: 0(045)701-628144 [place] [address] 06-07-2024 08:26-0400 Diastolic blood pressure 74 mm[Hg] Dr. Frdeis Moon MD Work Phone: 0(822)991-871944 [place] [address] 06-07-2024 08:26-0400 Respiratory rate 17 /min Dr. Fredis Moon MD Work Phone: 7(701)381-101344 [place] [address] 06-07-2024 08:26-0400 SaO2% (BldA) [Mass fraction] 95 % Dr. Fredis Moon MD Work Phone: [facility] 06-07-2024 08:26-0400 Systolic blood pressure 109 mm[Hg] Dr. Fredis Moon MD Work Phone: 5(285)815-580944 [place] [address] 06-06-2024 10:00-0400 Body mass index (BMI) [Ratio] 32.7 kg/m2 Dr. Fredis Moon MD Work Phone: 3(603)697-233544 [place] [address] 05-22-2024 22:00-0400 Diastolic blood pressure 55 mm[Hg] Dr. Fredis Moon MD Work Phone: 6(367)363-580644 [place] [address] 05-22-2024 22:00-0400 Heart rate 67 /min Dr. Fredis Moon MD Work Phone: 3(338)576-671647 [place] [address] 05-22-2024 22:00-0400 Systolic blood pressure 126 mm[Hg] Dr. Fredis Moon MD Work Phone: 7(265)023-141747 [place] [address] 05-22-2024 16:48-0400 Body mass index (BMI) [Ratio] 34.5 kg/m2 Dr. Fredis Moon MD Work Phone: 4(806)967-227844 [place] [address] 05-22-2024 16:48-0400 Body weight 97.[address] Fredis Moon MD Work Phone: 1(506)028-604547 [place] [address] 05-22-2024 15:30-0400 Body temperature 97 [degF] Dr. Fredis Moon MD Work Phone: 9(965)489-759747 [place] [address] 05-22-2024 15:30-0400 Respiratory rate 16 /min Dr. Fredis Moon MD Work Phone: 7(344)008-528544 [place] [address] 05-22-2024 15:30-0400 SaO2% (BldA) [Mass fraction] 97 % Dr. Fredis Moon MD Work Phone: 5(822)491-290147 [place] [address] 05-17-2024 12:54-0400 Body height 167.[address] Fredis Moon MD Work Phone: 0(230)760-750747 [place] [address] 05-16-2024 07:00-0400 Body mass index (BMI) [Ratio] 32.61 kg/m2 Daysi Velasco MD Work Phone: [facility] [employer] 05-16-2024 07:00-0400 Body weight 94.44 kg Daysi Velasco MD Work Phone: [facility] 05-16-2024 04:14-0400 Body temperature 97 [degF] Dayis Velasco MD Work Phone: [facility] 05-16-2024 04:14-0400 Diastolic blood pressure 49 mm[Hg] Daysi Velasco MD Work Phone: [facility] 05-16-2024 04:14-0400 Heart rate 66 /min Daysijojo Velasco MD Work Phone: [facility] [employer] 05-16-2024 04:14-0400 Respiratory rate 17 /min Daysi Velasco MD Work Phone: [facility] 05-16-2024 04:14-0400 SaO2% (BldA) [Mass fraction] 100 % Daysi Velasco MD Work Phone: [facility] 05-16-2024 04:14-0400 Systolic blood pressure 130 mm[Hg] Daysi Velasco MD Work Phone: [facility] 05-11-2024 08:32-0400 Body height 170.2 cm Daysi Velasco MD Work Phone: [facility] 05-11-2024 07:51-0400 SaO2% (BldA) [Mass fraction] 98.5 % Daysi Velasco MD Work Phone: [facility] [employer] 05-10-2024 22:27-0400 SaO2% (BldA) [Mass fraction] 98.2 % Daysi Velasco MD Work Phone: [facility] [employer] 05-10-2024 17:52-0400 SaO2% (BldA) [Mass fraction] 97.1 % Daysi Velasco MD Work Phone: [facility] [employer] 05-10-2024 14:12-0400 SaO2% (BldA) [Mass fraction] 98.5 % Daysi Velasco MD Work Phone: [facility] 05-10-2024 11:35-0400 SaO2% (BldA) [Mass fraction] 98.8 % Daysi Velasco MD Work Phone: [facility] 04-25-2024 11:46-0500 Diastolic blood pressure 68 mm[Hg] Daysi Velasco MD Work Phone: [facility] 04-25-2024 11:46-0500 Systolic blood pressure 151 mm[Hg] Daysi Velasco MD Work Phone: [facility] 04-25-2024 11:43-0500 Body height 169.5 cm Daysi Velasco MD Work Phone: [facility] 04-25-2024 11:43-0500 Body mass index (BMI) [Ratio] 32.98 kg/m2 Daysi Velasco MD Work Phone: [facility] 04-25-2024 11:43-0500 Body weight 94.8 kg Daysi Velasco MD Work Phone: [facility] 04-25-2024 11:43-0500 Heart rate 57 /min Daysi Velasco MD Work Phone: [facility] 04-24-2024 08:50-0500 Body weight 93.[address] Fredis Moon MD Work Phone: [facility] 04-24-2024 08:49-0500 Body mass index (BMI) [Ratio] 33.2 kg/m2 Dr. Fredis Moon MD Work Phone: [facility] 03-23-2024 08:09-0500 Body mass index (BMI) [Ratio] 34.3 kg/m2 Dr. Fredis Moon MD Work Phone: [facility] 03-23-2024 08:09-0500 Body weight 96.[address] Fredis Moon MD Work Phone: [facility] 03-23-2024 08:09-0500 Diastolic blood pressure 66 mm[Hg] Dr. Fredis Moon MD Work Phone: [facility] 03-23-2024 08:09-0500 Heart rate 63 /min Dr. Fredis Moon MD Work Phone: [facility] 03-23-2024 08:09-0500 Respiratory rate 18 /min Dr. Fredis Moon MD Work Phone: [facility] 03-23-2024 08:09-0500 Systolic blood pressure 118 mm[Hg] Dr. Fredis Moon MD Work Phone: 2(584)748-192244 [place] [address] 04-05-2023 14:27-0500 Body height 167.[address] Fredis Moon Work Phone: 6(299)655-443547 [place] [address] 04-05-2023 14:27-0500 Body mass index (BMI) [Ratio] 34.3 kg/m2 Dr. Fredis Moon Work Phone: 1(192)477-025144 [place] [address] 04-05-2023 14:27-0500 Body weight 96.[address] Fredis Moon Work Phone: 1(752)170-127085 [address] 04-05-2023 14:27-0500 Diastolic blood pressure 71 mm[Hg] Dr. Fredis Moon Work Phone: 0(462)744-436444 [place] [address] 04-05-2023 14:27-0500 Heart rate 57 /min Dr. Fredis Moon Work Phone: [facility] 04-05-2023 14:27-0500 Respiratory rate 18 /min Dr. Fredis Moon Work Phone: [facility] 04-05-2023 14:27-0500 SaO2% (BldA) [Mass fraction] 99 % Dr. Fredis Moon Work Phone: [facility] 04-05-2023 14:27-0500 Systolic blood pressure 135 mm[Hg] Dr. Fredis Moon Work Phone: [facility] 12-30-2022 23:01-0500 Diastolic blood pressure 61 mm[Hg] Dr. Fredis Moon Work Phone: 7(587)712-020744 [place] [address] 12-30-2022 23:01-0500 Heart rate 60 /min Dr. Fredis Moon Work Phone: [facility] 12-30-2022 23:01-0500 Respiratory rate 15 /min Dr. Fredis Moon Work Phone: [facility] 12-30-2022 23:01-0500 SaO2% (BldA) [Mass fraction] 96 % Dr. Fredis Moon Work Phone: 4(545)606-277344 [place] [address] 12-30-2022 23:01-0500 Systolic blood pressure 132 mm[Hg] Dr. Fredis Moon Work Phone: 6(491)739-776644 [address] [place] [address] 12-30-2022 20:27-0500 Body height 167.[address] Fredis Moon Work Phone: 7(788)[phone] [place] [address] 12-30-2022 20:27-0500 Body mass index (BMI) [Ratio] 32.5 kg/m2 Dr. Fredis Moon Work Phone: 5(898)[phone] [place] [address] 12-30-2022 20:27-0500 Body temperature 97.9 [degF] Dr. Fredis Moon Work Phone: 4(466)[phone] [address] 12-30-2022 20:27-0500 Body weight 91.[address] Fredis Moon Work Phone: 7(383)161-849847 [place] [address] 01-21-2022 14:21-0500 Body height 170.[address] Fredis Moon Work Phone: 8(392)[phone] [address] 01-21-2022 14:21-0500 Body mass index (BMI) [Ratio] 33 kg/m2 Dr. Fredis Moon Work Phone: [facility] 01-21-2022 14:21-0500 Body weight 95.[address] Fredis Moon Work Phone: 1(324)[phone] [place] [address] 01-21-2022 14:21-0500 Diastolic blood pressure 68 mm[Hg] Dr. Fredis Moon Work Phone: 8(005)[phone] [place] [address] 01-21-2022 14:21-0500 Heart rate 64 /min Dr. Fredis Moon Work Phone: 3(331)[phone] [place] [address] 01-21-2022 14:21-0500 Respiratory rate 18 /min Dr. Fredis Moon Work Phone: [facility] 01-21-2022 14:21-0500 Systolic blood pressure 116 mm[Hg] Dr. Fredis Moon Work Phone: [facility] 05-29-2021 09:49-0400 Body temperature 97.81 [degF] Yoselin Khan APRN.INSURANCE BUSINESS ANALYST Work Phone: [facility] 05-29-2021 09:49-0400 Body weight 91.44 kg Yoselin Khan APRN.INSURANCE BUSINESS ANALYST Work Phone: [facility] 05-29-2021 09:49-0400 Diastolic blood pressure 74 mm[Hg] Yoselin Khan APRN.INSURANCE BUSINESS ANALYST Work Phone: [facility] 05-29-2021 09:49-0400 Heart rate 59 /min Yoselin Khan APRN.INSURANCE BUSINESS ANALYST Work Phone: [facility] 05-29-2021 09:49-0400 Respiratory rate 18 /min Yoselin Khan APRN.INSURANCE BUSINESS ANALYST Work Phone: [facility] 05-29-2021 09:49-0400 SaO2% (BldA) [Mass fraction] 98 % Yoselin Khan APRN.INSURANCE BUSINESS ANALYST Work Phone: [facility] 05-29-2021 09:49-0400 Systolic blood pressure 136 mm[Hg] Yoselin Khan APRN.INSURANCE BUSINESS ANALYST Work Phone: [facility] 05-23-2021 11:24-0400 Body temperature 97.5 [degF] Alix Valle APRN.INSURANCE BUSINESS ANALYST Work Phone: [facility] 05-23-2021 11:24-0400 Body weight 93.35 kg Alix Valle APRN.INSURANCE BUSINESS ANALYST Work Phone: [facility] 05-23-2021 11:24-0400 Diastolic blood pressure 68 mm[Hg] Alix Valle APRN.INSURANCE BUSINESS ANALYST Work Phone: [facility] 05-23-2021 11:24-0400 Heart rate 67 /min Alix Praisler-Wood G[employer]UR[employer]INE MECHANIC.INSURANCE BUSINESS ANALYST Work Phone: [facility] 05-23-2021 11:24-0400 Respiratory rate 18 /min Alix Praisler-Wood G[employer] TURBINE MECHANIC.INSURANCE BUSINESS ANALYST Work Phone: [facility] 05-23-2021 11:24-0400 SaO2% (BldA) [Mass fraction] 96 % Alix Praisler-Wood GAS TURBINE MECHANIC.INSURANCE BUSINESS ANALYST Work Phone: [facility] 05-23-2021 11:24-0400 Systolic blood pressure 118 mm[Hg] Alix Praisler-Wood GAS TURBINE MECHANIC.INSURANCE BUSINESS ANALYST Work Phone: [facility] 12-21-2016 13:02-0400 Body height 170.18 cm Hailey Huerta [facility] Work Phone: 12-21-2016 13:02-0400 Body mass index (BMI) [Ratio] 29.29 kg/m2 Chantalle Deanna [facility] Work Phone: 12-21-2016 13:02-0400 Body weight 84.82 kg Rosendotalle Daenna [facility] Work Phone: 12-21-2016 13:02-0400 Diastolic blood pressure 58 mm[Hg] Rosendotalle Deanna [facility] Work Phone: 12-21-2016 13:02-0400 Heart rate 60 /min Rosendotalle Deanna [facility] Work Phone: 12-21-2016 13:02-0400 Respiratory rate 16 /min Chantalle Deanna [facility] Work Phone: 12-21-2016 13:02-0400 Systolic blood pressure 110 mm[Hg] Rosendotalle Deanna [facility] Work Phone: 05-14-2016 08:57-0400 Body height 170.18 cm Rosa Harris [facility] Work Phone: 05-14-2016 08:57-0400 Body mass index (BMI) [Ratio] 30.63 kg/m2 Rosa Parekhn Work Phone: [facility] Work Phone: 05-14-2016 08:57-0400 Body surface area Derived from formula 2 m2 Rosa Parekhn Work Phone: [facility] Work Phone: 05-14-2016 08:57-0400 Body temperature 98.3 [degF] Rosa Parekhn Work Phone: [facility] Work Phone: 05-14-2016 08:57-0400 Body temperature 98.29 [degF] Rosa Fernandezalen Work Phone: [facility] Work Phone: 05-14-2016 08:57-0400 Body weight 88.72 kg Rosa Parekhn Work Phone: [employer] Work Phone: 05-14-2016 08:57-0400 Diastolic blood pressure 67 mm[Hg] Rosa Fernandezalen Work Phone: [facility] Work Phone: 05-14-2016 08:57-0400 Heart rate 63 /min Rosa Parekhn Work Phone: [facility] Work Phone: 05-14-2016 08:57-0400 Respiratory rate 16 /min Rosa Fernandezalen Work Phone: [facility] Work Phone: 05-14-2016 08:57-0400 SaO2% (BldA) [Mass fraction] 96 % Rosa Fernandezalen Work Phone: [employer] Work Phone: 05-14-2016 08:57-0400 Systolic blood pressure 111 mm[Hg] Rosa Harris Work Phone: [facility] Work Phone: 05-14-2016 08:57-0400 Weight 88.72 kg Charity Landis RN [facility] Work Phone: Encounters Encounter Date Encounter Type Care Provider Facility Start: 03-15-2025 ambulatory Fredis Chi Red Facility:[facility] Start: 01-05-2025 ambulatory Fredis Chi Red Facility:[facility] Start: 12-27-2024 ambulatory Wagner H Roof HOME HEALTH LPN Facility :[facility] Start: 12-25-2024 End: 12-25-2024 ambulatory Wagner H Roof [facility] LPN [facility] Start: 12-20-2024 End: 12-20-2024 ambulatory Fredis Chi Red Facility:[facility] Start: 12-13-2024 End: 12-13-2024 ambulatory Fredis Chi Red Facility:[facility] Start: 12-11-2024 End: 12-11-2024 ambulatory Fredis Chi Red Facility:[facility] Start: 11-02-2024 ambulatory Dyasi Velasco Facility:[facility] Start: 10-09-2024 End: 10-09-2024 ambulatory Barron jaziel Facility:[facility] Start: 10-09-2024 End: 10-09-[address] Barron Olson DPM -Laboratory Specimen Work Phone: Start: 10-09-2024 End: 10-09-2024 ambulatory Barron Olson Facility:[facility] Start: 10-04-2024 End: 10-22-[address] Fredis [...] End: 10-02-2024 Patient encounter procedure Wagner BROWN -[facility] Work Phone: Start: 10-02-2024 End: 10-02-[address] Fredis Moon MD Work Phone: -[facility] Start: 10-02-[address] Daysi peoples MD -Cardiac Rehab Work Phone: Start: 10-02-2024 End: 10-02-2024 ambulatory Fredis Moon Facility:[facility] Start: 09-20-2024 End: 09-21-[address] Fredis Moon MD Work Phone: -Cardiac Rehab Start: 09-20-2024 End: 09-21-[address] Daysi Velasco MD -Cardiac Rehab Work Phone: Start: 09-18-[address] Daysi peoples MD -Cardiac Rehab Work Phone: Start: 09-14-2024 ambulatory Fredis Moon Facility:[facility] Start: 09-12-2024 End: 09-12-[address] Fredis Moon MD Work Phone: -Laboratory Specimen Start: 09-12-2024 End: 09-12-[address] Fredis Moon MD -Laboratory Specimen Work Phone: Start: 09-12-2024 End: 09-12-2024 ambulatory Fredis Silvano Moon Facility:[facility] Start: 09-08-2024 End: 09-08-2024 Emergency department patient visit Dr. Fredis Moon MD Work Phone: -Emergency Department Work Phone: Start: 09-08-[address] Daysi peoples MD -Cardiac Rehab Work Phone: Start: 09-07-2024 End: 09-07-[address] Fredis Moon MD -Laboratory Work Phone: Start: 09-07-2024 End: 09-07-2024 [facility] Start: 08-21-2024 End: 08-21-[address] Fredis Moon MD Work Phone: -Cardiac Rehab Start: 08-21-2024 End: 08-21-[address] Daysi Velasco MD -Cardiac Rehab Work Phone: Start: 07-24-2024 End: 07-24-2024 ambulatory Chante Hong RN [facility] Start: 07-21-2024 End: 07-22-[address] Fredis Moon MD Work Phone: [facility] Work Phone: Start: 07-21-2024 End: 07-22-[address] Daysi Velasco MD -Cardiac Rehab Work Phone: Start: 07-07-[address] Daysi peoples MD -Cardiac Rehab Work Phone: Start: 07-06-2024 End: 07-06-2024 Patient encounter procedure Mi BROWN -[facility] Work Phone: Start: 07-06-2024 End: 07-06-[address] 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 Daysi peoples MD -Cardiac Rehab Work Phone: Start: 07-04-2024 End: 07-04-[address] Fredis Moon MD Work Phone: [facility] Work Phone: Start: 07-04-2024 End: 07-04-[address] Daysi Velasco MD -Cardiac Rehab Work Phone: Start: 07-04-2024 End: 07-04-2024 ambulatory Daysi Velasco Facility:[facility] Start: 06-27-2024 End: 06-27-2024 ambulatory Chante Hong RN [facility] Start: 06-23-2024 End: 06-23-2024 Telephone encounter Daysi Velasco MD Work Phone: [facility] [place] Comment on above: Orders Start: 06-22-2024 End: 06-22-2024 ambulatory MIGUEL ANGEL DUMONTJuan Carlos [facility] Start: 06-22-2024 End: 06-22-2024 Postop follow up visit related to original px Miguel Angel Handy G[employer] MECHANIC - INSURANCE BUSINESS ANALYST Work Phone: [facility] [place] Comment on above: 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 Daysi hall MD -[facility] Start: 06-02-2024 End: 06-02-[address] Fredis Moon MD Work Phone: [facility] Work Phone: Start: 06-02-2024 End: 06-02-[address] 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 Daysi hall MD -[facility] Start: 05-18-2024 End: 05-18-[address] Fredis Moon MD Work Phone: [facility] Work Phone: Start: 05-18-2024 End: 05-18-[address] Fredis oMon MD -Cardiovascular Services Work Phone: Start: 05-18-2024 End: 05-18-2024 ambulatory Fredis Moon Facility:[facility] Start: 05-16-2024 End: 06-14-2024 Evaluation and management of inpatient Dr. Fredis Moon MD -Transitional Care Unit Start: 05-10-2024 End: 05-16-2024 Encounter for other preprocedural examination DAYSI VELASCO [facility] Start: 05-10-2024 End: 05-16-2024 Evaluation and management of inpatient Daysi Velasco MD Work Phone: [facility] Cardiac Thoracic Vascular Intensive Care Unit CTV ICU T1 Start: 05-10-2024 End: 05-16-2024 Preoperative state Daysi Velasco MD Work Phone: [facility] Start: 05-04-2024 End: 05-04-2024 Subsequent hospital visit by physician Ach Xr Exam Room 1 [facility] X-Ray Comment on above: Arrived Start: 05-04-2024 End: 05-04-2024 ambulatory AZAM MCBRIDE [facility] Start: 05-04-2024 End: 05-04-2024 ambulatory DAYSI VELASCO [facility] Start: 04-25-2024 End: 04-25-2024 Admission to same day surgery center Carter Atkinson CNP Work Phone: [facility] [place] Comment on above: CAD in [place] artery (Primary Dx); Preoperative clearance; 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 (CODE) Start: 04-25-2024 End: 04-25-2024 Preoperative state Carter Atkinson CNP Work Phone: [facility] Work Phone: Start: 04-25-2024 End: 04-25-2024 Telephone encounter Daysi Velasco MD Work Phone: [facility] [place] Comment on above: Surgery Scheduling Start: 04-25-2024 End: 04-25-2024 Office outpatient new 60 minutes Dyasi Velasco MD Work Phone: [facility] [place] Comment on above: 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 Samson bundy MD -[facility] Start: 04-24-2024 ambulatory Samson Esteban Facility:[facility] Start: 04-24-2024 End: 04-24-2024 Admission to same day surgery center Dr. Samson Elder MD -Fax Machine Operator/Special Procedures Work Phone: Start: 04-24-2024 End: 04-24-2024 ambulatory Samson Esteban Facility:[facility] Start: 04-21-2024 ambulatory Samson Esteban Facility:[facility] Start: 04-21-2024 Non-patient / Non-visit Corky Connolly -[facility] Start: 04-20-2024 Non-patient / Non-visit Dr. Samson bundy MD -[facility] Start: 04-20-2024 ambulatory Samson Esteban Facility:[facility] Start: 04-17-2024 ambulatory Daysi Monterroso Facility:[facility] Start: 04-17-2024 Non-patient / Non-visit Dr. Daysi hall MD -[facility] Start: 04-17-2024 End: 04-17-[address] Samson Elder MD -Cardiovascular Services Work Phone: Start: 04-17-2024 End: 04-17-2024 ambulatory Samson Esteban Facility:[facility] Start: 03-23-2024 End: 03-23-[address] Samson Elder MD -[facility] Work Phone: Start: 03-23-2024 End: 03-23-2024 ambulatory Samson Esteban Facility:[facility] Start: 03-07-2024 End: 03-07-[address] Fredis Moon MD -Laboratory, Phy Office 3rd [facility] Start: 03-07-2024 End: 03-07-2024 ambulatory Fredis Moon Facility:[facility] Start: 01-21-2024 End: 01-21-2024 ambulatory Yovanny Dempsey Facility:[facility] Start: 06-02-2023 End: 06-02-[address] Fredis Moon Work Phone: [facility] Work Phone: Start: 06-02-2023 End: 06-02-[address] Fredis Moon Work Phone: [facility] Work Phone: Start: 06-01-2023 End: 06-01-[address] Fredis Moon Work Phone: [facility] Work Phone: Start: 06-01-2023 End: 06-01-[address] [facility] Start: 04-05-2023 End: 04-05-[address] Fredis Moon Work Phone: [facility] Work Phone: Start: 04-05-2023 End: 04-05-[address] Fredis Moon Work Phone: [facility] Work Phone: Start: 03-02-2023 End: 03-02-[address] Fredis Moon Work Phone: [facility] Work Phone: Start: 03-02-2023 End: 03-02-[address] Fredis Moon Work Phone: [facility], [address] Start: 01-15-2023 End: 01-15-[address] Fredis Moon Work Phone: [facility] Work Phone: Start: 01-15-2023 End: 01-15-[address] [facility] Start: 12-30-2022 End: 12-30-2022 Emergency department patient visit Dr. Fredis Moon [facility] Work Phone: Start: 12-03-2022 Non-patient / Non-visit Dr. Mir Moon Work Phone: [facility] Start: 12-03-2022 End: 12-03-[address] Fredis Moon Work Phone: [facility] Work Phone: Start: 12-03-2022 End: 12-03-2022 [facility] Start: 11-30-2022 End: 11-30-2022 ambulatory [facility] Work Phone: Start: 11-30-2022 End: 11-30-2022 [facility] Start: 08-27-2022 End: 08-27-2022 ambulatory [facility] Work Phone: Start: 08-27-2022 End: 08-27-2022 [facility] Start: 07-10-2022 End: 07-10-2022 ambulatory [facility] Work Phone: Start: 07-10-2022 End: 07-10-2022 [facility] Start: 04-30-2022 End: 04-30-[address] Fredis Moon Work Phone: [facility] Work Phone: Start: 04-30-2022 End: 04-30-[address] Fredis Moon [facility] Start: 02-18-2022 End: 02-18-[address] Fredis Moon Work Phone: [facility]-Pulmonary Services/Neurology Start: 01-29-2022 End: 01-29-[address] Fredis Moon [facility] Start: 01-21-2022 End: 01-21-[address] Fredis Moon Work Phone: [facility] Start: 01-14-2022 End: 01-14-2022 ambulatory [facility] Work Phone: Start: 01-14-2022 End: 01-14-2022 Patient encounter procedure [facility]-Laboratory Start: 12-04-2021 End: 12-04-2021 ambulatory [facility] Work Phone: Start: 12-04-2021 End: 12-04-2021 [facility] Start: 10-30-2021 End: 10-30-2021 ambulatory [facility] Work Phone: Start: 10-30-2021 End: 10-30-2021 [facility] Start: 09-03-2021 End: 09-03-2021 Patient encounter procedure [facility]-Pulmonary Services/Neurology Start: 08-15-2021 End: 08-15-2021 [facility] Start: 07-11-2021 End: 07-11-2021 Patient encounter procedure [facility]-Laboratory Start: 05-29-2021 End: 05-29-2021 Patient encounter procedure Yoselin Khan APRN.INSURANCE BUSINESS ANALYST Work Phone: [facility] Comment on above: Close exposure to [place] VID-19 virus (Primary Dx) Start: 05-23-2021 End: 05-23-2021 Patient encounter procedure Alix Valle APRN.INSURANCE BUSINESS ANALYST Work Phone: [facility] Comment on above: Close exposure to [place] VID-19 virus (Primary Dx) Start: 05-14-2021 End: 05-14-2021 Patient encounter procedure [facility]-Pulmonary Services/Neurology Start: 05-12-2021 End: 05-12-2021 [facility] Start: 04-04-2021 End: 04-04-2021 Patient encounter procedure [facility]-Laboratory Start: 02-11-2021 [facility] Start: 01-20-2021 Patient encounter procedure [facility]-Sleep Lab Procedures Date Procedure Procedure Detail Performing [...] panel calcium total Miguel Angel Jensen Rozina G[employer] MECHANIC - INSURANCE BUSINESS ANALYST Work Phone: Start: 05-16-2024 Radiologic exam ches t single view Miguel Angellópez Handy G[employer]INE MECHANIC - INSURANCE BUSINESS ANALYST Work Phone: Start: 05-15-2024 Glucose quantitative blood [...] ches t single view Miguel Angel Handy G[employer]INE MECHANIC - INSURANCE BUSINESS ANALYST Work Phone: Start: 05-15-2024 Basic metabolic pane l calcium total Miguel Angel VickySp Handy G[employer] MECHANIC - INSURANCE BUSINESS ANALYST Work Phone: Start: 05-14-2024 Glucose quantitative blood xcpt reagent strip Daysi Velasco MD Work Phone: Start: 05-14-2024 Glucose quantitative blood xcpt reagent strip Daysi Velasco MD Work Phone: Start: 05-14-2024 Glucose quantitative blood xcpt reagent strip Daysi Velasco MD Work Phone: Start: 05-14-2024 Radiologic exam ches t single view Miguel Angel Handy G[employer]UR[employer]INE MECHANIC - INSURANCE BUSINESS ANALYST Work Phone: Start: 05-14-2024 Glucose quantitative blood xcpt reagent strip Daysi Velasco MD Work Phone: Start: 05-14-2024 Basic metabolic pane l calcium total Miguel Angel Handy G[employer] MECHANIC - INSURANCE BUSINESS ANALYST Work Phone: Start: 05-13-2024 Glucose quantitative blood [...] ches t single view Miguel Angel Handy G[employer] MECHANIC - INSURANCE BUSINESS ANALYST Work Phone: Start: 05-13-2024 Basic metabolic pane l calcium total Miguel Angel Handy G[employer]UR[employer]INE MECHANIC - INSURANCE BUSINESS ANALYST Work Phone: Start: 05-12-2024 Glucose quantitative blood xcpt reagent strip Daysi Velasco MD Work Phone: Start: 05-12-2024 Glucose quantitative blood xcpt reagent strip Daysi Velasco MD Work Phone: Start: 05-12-2024 Glucose quantitative blood xcpt reagent strip Daysi Velasco MD Work Phone: Start: 05-12-2024 Radiologic exam ches t single view Miguel Angel Handy G[employer]UR[employer] MECHANIC - INSURANCE BUSINESS ANALYST Work Phone: Start: 05-12-2024 Glucose quantitative blood xcpt reagent strip Daysi Velasco MD Work Phone: Start: 05-12-2024 Ecg routine ecg w/le ast 12 lds trcg only w/o i&r Miguel Angel Handy G[employer] MECHANIC - INSURANCE BUSINESS ANALYST Work Phone: Start: 05-12-2024 Basic metabolic pane l calcium total Miguel Angel Steinbergraad G[employer]INE MECHANIC - INSURANCE BUSINESS ANALYST Work Phone: Start: 05-11-2024 Glucose quantitative blood [...] pco2 po2 co2 hco3 Miguel Angel Steinbergraad G[employer]INE MECHANIC - INSURANCE BUSINESS ANALYST Work Phone: Start: 05-11-2024 End: 05-11-2024 Glucose quantitative blood xcpt reagent strip Daysi Velasco MD Work Phone: Start: 05-11-2024 Radiologic exam ches t single view Miguel Angel Jensen Rozina C[place] - INSURANCE BUSINESS ANALYST Work Phone: Start: 05-11-2024 Ecg routine ecg w/le ast 12 lds trcg only w/o i&r Miguel Angel Steinbergraad G[employer]INE MECHANIC - INSURANCE BUSINESS ANALYST Work Phone: Start: 05-11-2024 End: 05-11-2024 Basic metabolic panel calcium total Miguel Angel Steinbergraad [facility] - INSURANCE BUSINESS ANALYST Work Phone: Start: 05-11-2024 End: 05-11-2024 Glucose quantitative blood xcpt reagent strip Daysi Velasco MD Work Phone: Start: 05-11-2024 End: 05-11-2024 Coagj/fbrnlys assay whole blood additive per day Wagner Mathias DO Work Phone: Start: 05-11-2024 End: 05-11-2024 Blood count hematocrit Wagner Mathias DO Work Phone: Start: 05-10-2024 Blood gases any comb ination ph pco2 po2 co2 hco3 Miguel Angel Handy G[employer]INE MECHANIC - INSURANCE BUSINESS ANALYST Work Phone: Start: 05-10-2024 End: 05-10-2024 Glucose [...] pco2 po2 co2 hco3 Miguel Angel Handy GAS [employer]UR[employer] MECHANIC - INSURANCE BUSINESS ANALYST Work Phone: Start: 05-10-2024 End: 05-10-2024 Basic metabolic panel calcium total Miguel Angel Handy [employer]UR[employer] MECHANIC - INSURANCE BUSINESS ANALYST Work Phone: Start: 05-10-2024 EXTUBATION Miguel Angel Louis G[employer] TURBINE MECHANIC - INSURANCE BUSINESS ANALYST Work Phone: Start: 05-10-2024 End: 05-10-2024 Glucose quantitative blood xcpt reagent strip Daysi Velasco MD Work Phone: Start: 05-10-2024 Comprehensive metabo lic panel Miguel Angel A. Leskosky GAS TURBINE MECHANIC - INSURANCE BUSINESS ANALYST Work Phone: Start: 05-10-2024 Blood gases any comb ination ph pco2 po2 co2 hco3 Miguel Angel Handy G[employer]UR[employer] MECHANIC - INSURANCE BUSINESS ANALYST Work Phone: Start: 05-10-2024 Radiologic exam ches t single view Miguel Angel Handy G[employer] MECHANIC - INSURANCE BUSINESS ANALYST Work Phone: Start: 05-10-2024 Ecg routine ecg w/le ast 12 lds trcg only w/o i&r Miguel Angel Handy G[employer] MECHANIC - INSURANCE BUSINESS ANALYST Work Phone: Start: 05-10-2024 Echo transesophag r- [...] 05-10-2024 Glucose quantitative blood xcpt reagent strip Dayis Velasco MD Work Phone: Start: 05-04-2024 Radiologic exam ches t 2 views Azam G[employer]UR[employer] MECHANIC - INSURANCE BUSINESS ANALYST Work Phone: Start: 05-04-2024 Antibody screen DAYSI REAGAN RENALDO Comment on above: Performed By: #### L [id number] ####Food Cart Attendant: DANIELLA PEREZ ([phone])[facility] ([facility])[address] [place] [address] Start: 04-21-2024 X-ray of chest, PA a [...] PA-C Work Phone: Start: 02-22-2014 End: 02-22-2014 [facility] Rosa Harris Work Phone: Start: 11-06-2013 End: [...] (coronary artery bypass graft) Miguel Angel Handy G[employer] MECHANIC - INSURANCE BUSINESS ANALYST Work Phone: History of coronary artery bypass grafting S/P CABG (coronary artery bypass graft) Miguel Angel Handy GAS TUR[employer]INE MECHANIC - INSURANCE BUSINESS ANALYST Work Phone: History of coronary artery bypass grafting S/P CABG (coronary artery bypass graft) Daysi Velasco MD Work Phone: History of coronary artery bypass grafting S/P CABG (coronary artery bypass graft) Miguel Angel Handy G[employer]UR[employer]INE MECHANIC - INSURANCE BUSINESS ANALYST Work Phone: End: 02-23-2024 History of coronary artery 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 Fredis Moon MD Urine culture Plan of Treatment Date Care Activity Detail Author Start: 07-31-2025 Depression Screening Depression Screening [facility] Start: 05-16-2025 Diabetes: Estimated Glomerular Filtration Rate for Kidney Health Diabetes: Estimated Glomerular Filtration Rate for Kidney Health [facility] Start: 05-16-2025 [facility] Start: 05-04-2025 Diabetes: Estimated Glomerular Filtration Rate for Kidney Health Diabetes: Estimated Glomerular Filtration Rate for Kidney Health [facility] Start: 10-23-2024 Influenza vaccination Influenza Vaccine (Season Ended) [facility] Start: 10-02-2024 Anaerobic microbial culture Anaerobic Culture [facility] Start: 10-02-2024 Source specific culture [facility] Start: 09-08-2024 [facility] Start: 09-08-2024 [facility] Start: 07-05-2024 End: 07-05-2024 Telemedicine consultation with patient 07/05/2024 1:30 PM EDT Telemedicine [facility] [place] [address] [place] [address] Miguel Angel Handy, GAS TURBINE MECHANIC - [facility] [address] [place] [address] [facility] [place] Start: 06-14-2024 Patient discharge [facility] Start: 06-13-2024 Development of care plan [facility] Start: 06-10-2024 Patient discharge [facility] Start: 06-07-2024 Referral to service [facility] Start: 06-05-2024 [facility] Start: 06-05-2024 Recommendation to continue with treatment [facility] Start: 05-25-2024 End: 05-25-2024 [facility] Start: 05-25-2024 [facility] Start: 05-23-2024 Speech therapy management [facility] Start: 05-23-2024 Measurement of occult blood in stool specimen using immunoassay [facility] Start: 05-22-2024 Speech therapy assessment [facility] Start: 05-22-2024 [facility] Start: 05-17-2024 Development of care plan [facility] Start: 05-17-2024 Developing a treatment plan [facility] Start: 05-17-2024 End: 05-17-2024 [facility] Start: 05-17-2024 End: 05-17-2024 Administration of blood product [facility] Start: 05-16-2024 Speech therapy assessment [facility] Start: 05-16-2024 Verification routine [facility] Start: 05-16-2024 Provision of activity privileges [facility] Start: 05-16-2024 End: 05-16-2024 [facility] Start: 05-16-2024 Wound care [facility] Start: 05-16-2024 Admission procedure [facility] Start: 05-16-2024 Introduction of urinary catheter [facility] Start: 05-16-2024 Measuring intake and output [facility] Start: 05-16-2024 End: 05-17-2024 Patient referral to dietitian [facility] Start: 05-16-2024 Referral to occupational therapist [facility] Start: 05-16-2024 Referral to service [facility] Start: 05-16-2024 Vital signs measurements [facility] Start: 05-16-2024 Application of elastic bandage [facility] Start: 05-16-2024 Continuous positive airway pressure ventilation treatment [facility] Start: 05-16-2024 [facility] Start: 05-10-2024 End: 05-10-2024 Admission to same day surgery center 05/10/2024 7:30 AM EDT - 05/10/2024 12:30 PM EDT Surgery [facility] MA[facility] OR [address] [facility] [place] [address] Daysi Velasco MD [address] [place] [address], [address] [place] [address] CORONARY ARTERY BYPASS GRAFT [[id number] (CPT )] [facility] Comment on above: CORONARY ARTERY BYPASS GRAFT [40795 (CPT )] Start: 05-10-2024 End: 05-10-2024 Anesthesia consultation 05/10/2024 7:30 AM EDT Anesthesia Event [facility] [address] [place] [address] Gale Garcia, G[employer] TURBINE MECHANIC - INSURANCE BUSINESS ANALYST [address] [place] [address] [facility] Start: 05-10-2024 End: 05-10-2024 Cabg w/arterial graft three arterial grafts CORONARY ARTERY BYPASS GRAFT CAD (coronary artery disease) 05/10/2024 7:30 AM EDT [facility] Operating Room Start: 05-10-2024 End: 05-10-2024 Echo transesophag r-t 2d w/prb img acquisj i&r ECHOCARDIOGRAM, TRANSESOPHAGEAL CAD (coronary artery disease) 05/10/2024 7:30 AM EDT [facility] Operating Room Start: 05-10-2024 Subsequent hospital visit by physician 05/10/2024 7:30 AM EDT Hospital Encounter [facility] [address] [place] [address] Daysi Velasco MD [address] [place] [address], [address] [place] [address] [facility] Start: 05-04-2024 End: 05-04-2024 Admission to establishment 05/04/2024 11:00 AM EDT Pre-Admission Testing [facility] Pre-Admit Testing [address] [place] [address] [facility] Pre-Admit Testing Start: 04-24-2024 Patient referral [facility] Work Phone: Start: 04-24-2024 Patient discharge [facility] Start: 10-24-2023 COVID-19 Vaccine ( season) COVID-19 Vaccine ( season) [facility] Start: 10-24-2023 COVID-19 Vaccine ( season) COVID-19 Vaccine ( season) [facility] Start: 10-24-2023 Influenza vaccination Influenza Vaccine (#1) [facility] Start: 10-24-2023 [facility] Start: 12-30-2022 [facility] Start: 05-29-2021 End: 06-12-2021 Influenza virus A and B RNA and SARS-CoV-2 (COVID-19) N gene panel - Respiratory specimen by BRIAN with probe detection COVID WITH FLUA+B, ROUTINE Microbiology Routine Close exposure to COVID-19 virus Expected: 05/29/2021, Expires: 06/12/2021 [facility] Work Phone: Comment on above: Expected: 05/29/2021, Expires: 2 Start: 05-23-2021 End: 06-02-2021 SARS-CoV-2 (COVID-19) RNA [Presence] in Respiratory specimen by BRIAN with probe detection [facility] Work Phone: Comment on above: Expected: 05/23/2021, Expires: 2 Start: 02-22-2021 ADVANCE DIRECTIVE DISCUSSION ADVANCE DIRECTIVE DISCUSSION [facility] Start: 04-05-2019 Zoster Vaccines (2 of 2) Zoster Vaccines (2 of 2) [facility] Start: 04-05-2019 [facility] Start: 12-20-2017 End: 12-20-2017 Patient encounter procedure Appointment [facility] Work Phone: Start: 2017 RSV Immunization for Adults (1 - 1-dose 75+ series) RSV Immunization for Adults (1 - 1-dose 75+ series) [facility] Start: 12-21-2016 End: 12-21-2016 Appointment Appointment [facility] Work Phone: Start: 12-21-2016 End: 12-21-2016 Follow Up Appt 1 year [facility] Work Phone: Start: 12-21-2016 End: 12-21-2016 [...] Group Work Phone: Start: 12-20-2015 End: 12-20-2015 [facility] Work Phone: Start: 12-20-2015 End: 12-20-2015 Ecg routine ecg w/least 12 lds w/i&r EKG (In office) [employer] [facility] Work Phone: Start: 12-20-2015 End: 12-20-2015 Echocardiography Echocardiogram (complete) [employer] [facility] Work Phone: Start: 12-20-2015 End: 12-20-2015 Follow Up Appt 1 year Follow Up Appt 1 year [facility] [employer] [facility] Work Phone: Start: 12-20-2015 End: 12-20-2015 Nuclear stress test -exercise Nuclear stress test -exercise [employer] [facility] Work Phone: Start: 12-20-2015 End: 12-20-2015 [facility] [employer] [facility] Work Phone: Start: 11-21-2014 End: 11-21-2014 [...] w/least 12 lds w/i&r EKG (In office) [facility] Work Phone: Start: 11-21-2014 End: 11-21-2014 Follow Up Appt 1 year Follow Up Appt 1 year [facility] Work Phone: Start: 11-21-2014 End: 11-21-2014 [facility] Work Phone: Start: 05-07-2014 End: 05-07-2014 Follow Up Appt 6 months Follow Up Appt 6 months [facility] Work Phone: Start: 05-07-2014 End: 05-07-2014 PF PF [facility] Work Phone: Start: 05-07-2014 End: 05-07-2014 Follow Up Appt 6 months Follow Up Appt 6 months [facility] Work Phone: Start: 05-07-2014 End: 05-07-2014 [facility] Work Phone: Start: 11-06-2013 End: 11-06-2013 Follow Up Appt 6 months Follow Up Appt 6 months [facility] Work Phone: Start: 11-06-2013 End: 11-06-2013 [facility] Work Phone: Start: 11-06-2013 End: 11-06-2013 Follow Up Appt 6 months Follow Up Appt 6 months [facility] Work Phone: Start: 11-06-2013 End: 11-06-2013 [facility] Work Phone: Start: 05-15-2013 End: 05-15-2013 24 hour holter monitor 24 hour holter monitor [facility] Work Phone: Start: 05-15-2013 End: 05-15-2013 Follow Up Appt 6 months Follow Up Appt 6 months [facility] Work Phone: Start: 05-15-2013 End: 05-15-2013 PFM PFM [facility] Work Phone: Start: 05-15-2013 End: 05-15-2013 24 hour holter monitor 24 hour holter monitor [employer] [facility] Work Phone: Start: 05-15-2013 End: 05-15-2013 Follow Up Appt 6 months Follow Up Appt 6 months [employer] [facility] Work Phone: Start: 05-15-2013 End: 05-15-2013 PFM PF [employer] [facility] Work Phone: Start: 01-20-2013 Hepatitis B screening URINE ALBUMIN:CREATININE RATIO [facility] Start: 01-20-2013 Hepatitis B surface antibody level LDL CHOLESTEROL [facility] Start: 10-06-2012 End: 10-06-2012 24 hour holter monitor 24 hour holter monitor [employer] [facility] Work Phone: Start: 10-06-2012 End: 10-06-2012 Ecg routine ecg w/least 12 lds w/i&r EKG (In office) [employer] [facility] Work Phone: Start: 10-06-2012 End: 10-06-2012 Echocardiography Echocardiogram (complete) [facility] Work Phone: Start: 10-06-2012 End: 10-06-2012 Follow Up Appt 6 months Follow Up Appt 6 months [facility] Work Phone: Start: 10-06-2012 End: 10-06-2012 Nuclear stress test -exercise Nuclear stress test -exercise [facility] Work Phone: Start: 10-06-2012 End: 10-06-2012 PFM PFM [facility] Work Phone: Start: 10-06-2012 End: 10-06-2012 24 hour holter monitor 24 hour holter monitor [facility] Work Phone: Start: 10-06-2012 End: 10-06-2012 Ecg routine ecg w/least 12 lds w/i&r EKG (In office) [facility] Work Phone: Start: 10-06-2012 End: 10-06-2012 Echocardiography Echocardiogram (complete) [facility] Work Phone: Start: 10-06-2012 End: 10-06-2012 Follow Up Appt 6 months Follow Up Appt 6 months [facility] Work Phone: Start: 10-06-2012 End: 10-06-2012 Nuclear stress test -exercise Nuclear stress test -exercise [facility] Work Phone: Start: 10-06-2012 End: 10-06-2012 PFM PFM [facility] Work Phone: Start: 07-20-2012 Hemoglobin A1c/Hemoglobin.total in Blood HBA1C [facility] Start: 01-07-2012 Hepatitis C antibody, confirmatory test DILATED RETINAL EXAM [facility] Start: 2007 PNEUMOVAX AGE 65 AND OVER WITH 5YR LOOKBACK (#1) PNEUMOVAX AGE 65 AND OVER WITH 5YR LOOKBACK (#1) [facility] Start: 1992 SHINGRIX VACCINE (1 of 2) SHINGRIX VACCINE (1 of 2) [facility] Start: 1992 Zoster Vaccines (1 of 2) Zoster Vaccines (1 of 2) [facility] Start: 1961 DTaP/Tdap/Td Vaccines (1 - Tdap) DTaP/Tdap/Td Vaccines (1 - Tdap) [facility] Start: 1961 Pneumococcal Vaccine: 50+ Years (1 of 2 - PCV) Pneumococcal Vaccine: 50+ Years (1 of 2 - PCV) [facility] Start: 1961 Urine microalbumin profile DTAP,TDAP,TD (1 - Tdap) [facility] Start: 1961 [facility] Start: 1960 ANNUAL PCP TEAM CHRONIC DISEASE VISIT ANNUAL PCP TEAM CHRONIC DISEASE VISIT [facility] Start: 1960 Diabetes: Estimated Glomerular Filtration Rate for Kidney Health Diabetes: Estimated Glomerular Filtration Rate for Kidney Health [facility] Start: 1960 Diabetes: Urine Albumin-Creatinine Ratio for Kidney Health Diabetes: Urine Albumin-Creatinine Ratio for Kidney Health [facility] Start: 1960 [facility] Start: 1954 Adult depression screening assessment DEPRESSION SCREENING [facility] Start: 1954 [facility] Start: 1952 3 comp foot exam completed DIABETIC FOOT EXAM [facility] Start: 1942 Medicare Annual Wellness (AWV) Medicare Annual Wellness (AWV) [facility] Start: 1942 [facility] Anion gap in Serum o r Plasma [facility] Anion gap in Serum o r Plasma [facility] Anion gap in Serum o r Plasma [facility] Anion gap in Serum o r Plasma [facility] BUN/Creatinine ratio [facility] BUN/Creatinine ratio [facility] BUN/Creatinine ratio [facility] BUN/Creatinine ratio [facility] Calcium [Mass/volume ] in Serum or Plasma [facility] Calcium [Mass/volume ] in Serum or Plasma [facility] Calcium [Mass/volume ] in Serum or Plasma [facility] Calcium [Mass/volume ] in Serum or Plasma [facility] Carbon dioxide, tota l [Moles/volume] in Central venous blood [facility] Carbon dioxide, tota l [Moles/volume] in Central venous blood [facility] Carbon dioxide, tota l [Moles/volume] in Central venous blood [facility] Carbon dioxide, tota l [Moles/volume] in Central venous blood [facility] Catheterization of l eft heart [facility] CBC W Auto Different ial panel - Blood [facility] Comprehensive metabo lic 2000 panel - Serum or Plasma [facility] Creatinine [Mass/vol ume] in Serum or Plasma [facility] Creatinine [Mass/vol ume] in Serum or Plasma [facility] Creatinine [Mass/vol ume] in Serum or Plasma [facility] Creatinine [Mass/vol ume] in Serum or Plasma [facility] Erythrocyte mean corpuscular volume determination [facility] Erythrocyte mean corpuscular volume determination [facility] Erythrocyte mean corpuscular volume determination [facility] Erythrocyte mean corpuscular volume determination [facility] Glucose [Mass/volume ] in Serum or Plasma [facility] Glucose [Mass/volume ] in Serum or Plasma [facility] Glucose [Mass/volume ] in Serum or Plasma [facility] Glucose [Mass/volume ] in Serum or Plasma [facility] Hematocrit [Volume Fraction] of Blood [facility] Hematocrit [Volume Fraction] of Blood [facility] Hematocrit [Volume Fraction] of Blood [facility] Hematocrit [Volume Fraction] of Blood [facility] Hemoglobin [Mass/vol ume] in Blood [facility] Hemoglobin [Mass/vol ume] in Blood [facility] Hemoglobin [Mass/vol ume] in Blood [facility] Hemoglobin [Mass/vol ume] in Blood [facility] Leukocytes [#/volume ] in Blood [facility] Leukocytes [#/volume ] in Blood [facility] Leukocytes [#/volume ] in Blood [facility] Leukocytes [#/volume ] in Blood [facility] Lipid 1996 panel - S trae or Plasma [facility] Mean corpuscular hemoglobin concentration determination [facility] Mean corpuscular hemoglobin concentration determination [facility] Mean corpuscular hemoglobin concentration determination [facility] Mean corpuscular hemoglobin concentration determination [facility] Mean corpuscular hemoglobin determination [facility] Mean corpuscular hemoglobin determination [facility] Mean corpuscular hemoglobin determination [facility] Mean corpuscular hemoglobin determination [facility] Measurement of renal function [facility] Measurement of renal function [facility] Measurement of renal function [facility] Measurement of renal function [facility] Neutrophil count [facility] Neutrophil count [facility] Neutrophil count [facility] Neutrophil count [facility] Neutrophil percent differential count [facility] Neutrophil percent differential count [facility] Neutrophil percent differential count [facility] Neutrophil percent differential count [facility] Patient Education [facility] [employer] Work Phone: Patient referral [facility] Work Phone: Platelets [#/volume] in Blood [facility] Platelets [#/volume] in Blood [facility] Platelets [#/volume] in Blood [facility] Platelets [#/volume] in Blood [facility] Potassium measurement [facility] Potassium measurement [facility] Potassium measurement [facility] Potassium measurement [facility] End: 05-10-2024 Prothrombin time (PT) in Blood by Coagulation assay [facility] [employer] Work Phone: Red blood cell count [facility] Red blood cell count [facility] Red blood cell count [facility] Red blood cell count [facility] Red cell distributio n width determination [facility] Red cell distributio n width determination [facility] Red cell distributio n width determination [facility] Red cell distributio n width determination [facility] Serum chloride measurement [facility] Serum chloride measurement [facility] Serum chloride measurement [facility] Serum chloride measurement [facility] Sodium measurement [facility] Sodium measurement [facility] Sodium measurement [facility] Sodium measurement [facility] Urea nitrogen [Mass/volume] in Serum or Plasma [facility] Urea nitrogen [Mass/volume] in Serum or Plasma [facility] Urea nitrogen [Mass/volume] in Serum or Plasma [facility] Urea nitrogen [Mass/volume] in Serum or Plasma [facility] Immunizations Immunization Date Immunization Notes Care Provider [facility] 01-07-2024 Pneumococcal Vaccine PCV20 (Prevnar 20) Dr. Fredis Moon MD Work Phone: [facility] 11-24-2023 RSV Adult Recombinan t (Arexvy) Dr. Fredis Moon MD Work Phone: [facility] 12-29-2022 RSV Adult Recombinan t (Arexvy) Dr. Fredis Moon MD Work Phone: [facility] 12-02-2022 influenza virus vaccine, unspecified formulation [facility] 1 [facility] 12-17-2020 COVID-19 vaccine, fu ll dose (MODERNA) Yoselin Khan APRN.INSURANCE BUSINESS ANALYST Work Phone: [facility] 03-05-2008 influenza virus vaccine, unspecified formulation Alix Valle APRN.INSURANCE BUSINESS ANALYST Work Phone: [facility] Work Phone: Payers Date Payer Category Payer Medicare [id number] 2024 Self-pay [id number] 2021 Medicare supplementa l policy (as second payer) [id number] 2021 Unknown [id number] 2016 Private Health Insurance [id number] 2007 Medicare [id number] 2007 Medicare [id number] 2007 Medicare MEDICARE MEDICAR E A AND B [id number] 2007-Present [phone] [address] [address] [place] [address] Medicare [id number]. 7.3.482731.315 Unknown [id number] Unknown [id number] 2.16.840.1.653648.3.579.2. 462 Unknown [id number] 2.16.840.1.812383.3.579.2. 462 Unknown [id number] 2.16.840.1.260177.3.579.2. 462 Unknown [id number] 2.16.840.1.049032.3.579.2. 462 Unknown [id number] 2.16840.1.748515.3.579.2. 462 Unknown [id number] 2.16840.1.351750.3.579.2. 462 Unknown [id number] 2.16840.1.941842.3.579.2. 462 Unknown [id number] 2.16840.1.357071.3.579.2. 462 Unknown [id number] 2.840.1.420014.3.579.2. 462 Unknown [id number] 2.840.1.201021.3.579.2. 462 Unknown [id number] 2.840.1.857370.3.579.2. 462 Unknown [id number] 2.840.1.907127.3.579.2. 462 Unknown [id number] 2.840.1.870051.3.579.2. 462 Unknown [id number] 2.840.1.250621.3.579.2. 462 Unknown [id number] 2.840.1.995861.3.579.2. 462 Unknown [id number] 2.840.1.232953.3.579.2. 462 Unknown [id number] 2.840.1.916146.3.579.2. 462 Unknown [id number] .840.1.330282.3.579.2. 462 Unknown [id number] 2.840.1.305760.3.579.2. 462 Unknown [id number] 2.840.1.843145.3.579.2. 462 Unknown [id number] 2.840.1.041155.3.579.2. 462 Unknown [id number] 2.840.1.995802.3.579.2. 462 Unknown [id number] 2.840.1.402814.3.579.2. 462 Unknown [id number] 2.16.840.1.117151.3.579.2. 462 Unknown [id number] 2.16.840.1.823826.3.579.2. 462 Unknown [id number] 2.16.840.1.271233.3.579.2. 462 Unknown [id number] 2.16.840.1.504287.3.579.2. 462 Unknown [id number] 2.16.840.1.188721.3.579.2. 462 Unknown [id number] 2.16.840.1.387478.3.579.2. 462 Unknown [id number] 2.16.840.1.235199.3.579.2. 462 Unknown [id number] 2.16.840.1.341790.3.579.2. 462 Unknown [id number] 2.16.840.1.505419.3.579.2. 462 Unknown [id number] 2.16.840.1.691846.3.579.2. 462 Unknown [id number] 2.16.840.1.131835.3.579.2. 462 Unknown [id number] 2.16.840.1.758859.3.579.2. 462 Unknown [id number] 2.16.840.1.408753.3.579.2. 462 Unknown [id number] 2.16.840.1.520593.3.579.2. 462 Unknown [id number] 2.16.840.1.177039.3.579.2. 462 Unknown [id number] 2.16.840.1.897300.3.579.2. 462 Social History Date Type Detail Facility Start: 01-06-2021 End: 04-05-2023 Tobacco smoking status NHIS Unknown if ever smoked [facility] Start: 1940 Sex Assigned At Male W [facility] Start: 05-04-2024 End: 09-08-2024 Tobacco smoking status NHIS Ex-smoker [facility] Start: 05-23-2021 End: 05-29-2021 Alcohol intake Current non-drinker of alcohol (finding) [facility] Start: 1940 Sex Assigned At Not on file C [facility] Start: 05-13-2021 End: 05-23-2021 Exposure to SARS-CoV-2 (event) Yes [facility] Work Phone: Start: 05-19-2021 End: 05-29-2021 Exposure to SARS-CoV-2 (event) Not sure [facility] Work Phone: Start: 02-12-[address] [facility] Start: 02-12-[address] [facility] Start: 07-15-[address] [facility] Start: 04-25-2024 Tobacco smoking stat us PAIS Never smoked tobacco [facility] Start: 04-25-2024 End: 05-04-2024 Tobacco use and exposure Smokeless tobacco non-user [facility] Start: 04-25-2024 End: 07-05-2024 Alcoholic beverage intake Lifetime non-drinker (finding) [facility] Start: 04-25-2024 End: 07-31-2024 History of Social function [facility] Work Phone: Start: 04-25-2024 End: 07-31-2024 Tobacco use panel [facility] Work Phone: Start: 04-24-2024 End: 06-08-2024 Sex Male (finding) [facility] Start: 02-22-1962 History of tobacco use Current smoke r [facility] Start: 02-22-1962 History of tobacco use Cigarette Smo ker [facility] Has the [employer] [place], [employer], or water company threatened to shut off services in your home in past 12Mo No [facility] Work Phone: How often to you hav e a drink containing alcohol? Never [facility] How many standard drinks containing alcohol do you have on a typical day? Patient does not drink [facility] How hard is it for y ou [...] , never or living with a partner? [facility] Medical Equipment Procedure Code Equipment Code Equipment Origin al Text Equipment Identifier Dates INSULIN PEN NEEDLE Start: 05-15-2011 End: 10-06-2012 Comment on above: CHECK BLOOD SUGARS 3 -4 TIMES DAILY CLIP,KIERANLANCE VILLAGOMEZ FDA Start: 07-14-2017 CLIP,HEMLANCE NOEL FDA Start: 07-14-2017 CLIP,HEMADALIDSTUART RINALDI Openbravo FDA Start: 07-14-2017 CLIP,HEMLANCE NOEL FDA Start: 07-14-2017 CLIP,HEMLANCE NOEL FDA Start: 07-14-2017 CLIP,HEMADALIDSTUART RINALDI Openbravo FDA Start: 07-14-2017 CLIP,HEMADALIDSTUART RINALDI Openbravo FDA Start: 07-14-2017 CLIP,HEMADALIDSTUART NOEL FDA Start: 07-14-2017 CLIPHEMADALIDSTUART VILLAGOMEZ FDA Start: 07-14-2017 CLIP,HEMADALIDSTUART RINALDI WE FDA Start: 07-14-2017 CLIP,HEMADALIDSTUART RINALDI Openbravo FDA Start: 07-14-2017 CLIP,HEMLANCE VILLAGOMEZ FDA Start: 07-14-2017 CLIP,HEMLANCE RINALDI WE FDA Start: 07-14-2017 CLIP,HEMADALIDSTUART RINALDI WE FDA Start: 07-14-2017 CLIP,HEMADALDISTUART RINALDI WE FDA Start: 07-14-2017 CLIP,HEMADALIDSTUART RINALDI WESTUART FDA Start: 07-14-2017 CLIP,HEMLANCE RINALDI WESTUART FDA Start: 07-14-2017 CLIP,HEMLANCE RINALDI WE FDA Start: 07-14-2017 CLIP,HEMADALIDSTUART RINALDI WESTUART FDA Start: 07-14-2017 CLIP,HEMLANCE RINALDI OpenbravoSTUART FDA Start: 07-14-2017 CLIP,HEMLANCE RINALDI Openbravo FDA Start: 07-14-2017 CLIP,HEMOLOCK LG WECK FDA [...] LG WESTUART FDA Start: 07-14-2017 CLIP,HEMADALIDCK LG DAHLIA FDA [...] Patient Health Questionnaire 2 item (PHQ-2) [Reported] [facility] 07-31-2024 Total score [AUDIT-C] 0 08/01/19 25 2:43 PM EDT Lilliana Reed LISW [facility] 06-14-2024 Functional status Bedrest [facility] Work Phone: 06-07-[address] [facility] Work Phone: 06-03-2024 Functional status Tolerates Activity Well [facility] Work Phone: 05-22-[address] [facility] Work Phone: 05-21-2024 Functional status Tolerates Activity Well [facility] Work Phone: [facility] Mental Status Date Assessment Result Facility 09-08-2024 Cognitive function Voice[facility]Name [facility] Work Phone: 06-14-2024 Cognitive function Voice/Name [facility] Work Phone: 06-13-2024 Cognitive function Demonstrates ability to follow instructions/comprehend [facility] Work Phone: 06-07-2024 Cognitive function Voice/Name [facility] Work Phone: 06-05-2024 Cognitive function Demonstrates ability to follow instructions/comprehend [facility] Work Phone: 05-22-2024 Cognitive function Voice/Name [facility] Work Phone: 05-19-2024 Cognitive function Demonstrates ability to follow instructions/comprehend [facility] Work Phone: Clinical Notes 05-14-2016 to 10-02-2024 Note Date & Type Note Facility 10-02-2024 Progress note [facility] 10-02-2024 Progress note Note Date/Time October 02, 2024 12:25pm [facility] ealt System [facility] 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 Cardiac catheterization: 06/24/2001: [facility] FINAL IMPRESSION: 1. Elevated left ventricular end [...] EPISODES OF BORDERLINE 1ST DEGREE AV BLOCK- MS.22-.24 MINIMUM HR 445PM AT 501:53 AM WHILE [...] and Plan (1) Atherosclerotic heart disease of [place] coronary artery without angina pectoris: Status: Chronic Qualifiers: [place] vs. transplanted heart: [place] heart Qualified Code(s): I25.10 -Atherosclerotic heart disease of [place] coronary artery without angina pectoris Plan: He [...] Code Off vis,est,level 4 Diagnoses Atherosclerosis of [place] coronary artery of [place] heart without angina pectoris I25.10 [place] vs. transplanted heart: [place] heart Diastolic dysfunction I51.89 Mixed hyperlipidemia E78.2 Carotid artery disease I77.9 Anemia D64.9 Type 2 diabetes mellitus with hyperglycemia E11.65 Coding Level of Care Code Off vis,est,level 4 Diagnoses Atherosclerosis of [place] coronary artery of [place] heart without angina pectoris I25.10 [place] vs. transplanted heart: [place] heart Diastolic dysfunction I51.89 Mixed hyperlipidemia E78.2 Carotid artery disease I77.9 Anemia D64.9 Type 2 diabetes mellitus with hyperglycemia E11.65 Clinical Quality Measures Falls Risk Screening/Assistive Devices Have you fallen in the past year?: Yes (3- tripped d/t neuropathy.) Cardiac Ejection fraction %: 65 10/02/24 1225 <Electronically signed by Wagner MANEC> Date _ Wagner Pond Roof HOME HEALTH LPN HOME HEALTH LPN-C Yvesigner Signature: Date (if applicable) CC: Dr. Montana Jones MD; Dr. Fredis Moon MD ~ [facility] Work Phone: 1(706) 685-475807-18-2025 Discharge summary [facility] Medical Records Department [address] [place] [address] Emergency Department Summary 09/08/24 MR#: [id number] Acct: [id number] Name: Joaquin THRASHER Rep #:[id number] : 1940 84 From: Tiara Carlin [...] contractions Sinus bradycardia Atherosclerotic heart disease of [place] coronary artery without angina pectoris Diabetes type [...] (Auto) 65.0 Lymph % (Auto) 17.6 L [place] % (Auto) 13.8 H Eos % (Auto) [...] vascular disease of the aorta. Reading Location: [facility] Rhythm Strip Rhythm Strip: Sinus Rhythm [...] return to the emergency room. Print Language: Dutch Disposition Disposition: Home, Self Care What to do if you have Problems For any increased pain, shortness of breath, bleeding, nausea or vomiting, chestpain, or any unexpected problems, contact your Primary Care Provider. Call [facility] ([phone]) or report tothe closest Emergency Room. Call 911 if necessary. 09/08/24 1322 Cosigner Signature (if applicable): CC: Dr. Fredis Moon MD ~ Signed [facility]07-18-2025 Radiology Diagnostic study note [facility] Imaging Services [address], [place] [id number] Chest PA and Lateral MR#: [id number] Acct: [id number] Name: Joaquin THRASHER Rep #: [id number] : 1940 M 84 From: Danis Lopez DO PCP: Dr. Fredis Moon MD Status: REG E R Study:Chest PA and Lateral Date of Exam: 09/08/24 Exam# [id number] Ordering Dr: Yin Alston DO PROCEDURE: CHEST [...] vascular disease of the aorta. Reading Location: [id number] CC: Dr. Tiara Alston DO; Dr. Fredis Moon MD ~ Numerical Control Operator: Signed [facility]06-09-2025 Note07/31/2024: Reviewed EMR. Outreach made to Nimisha. Verified he received the HCAP application. Nimisha shared appreciation and relief that at this time, his medical bills are manageable. Noted his balance per epic at this time is $0. Nimisha reviewed he has hired someone to help install grab bars and is exploring reimbursement for this through [employer]. Updated the SDOH assessment today. Nimisha shared strong familial support as well as neighbors and scientologist family who are helpful and reach out [...] Critical [facility]. [facility] Support provided. Nimisha shared appreciation for his level of recovery. Follow up outreach scheduled with goal of completing the SDOH assessment. 06/22/2024 Reviewed EMR prior to today's outreach. Noted Mr. Thrasher is home from [facility]. Plan for Cardiac Rehab. BPCI call made to Mr. Nimisha Thrasher. Introduced self and reviewed role on [facility]'s BPCI team. Verified Nimisha is able and agreeable to speak today. Assessed for needs or concerns. Nimisha shared he lives in [place] with his . He identified having a [...] GDMT for CABG. Able to discharge to [facility] on POD#06. 06/08/2024: Referral received from Chante Hong RNCM with the BPCI program, with request to update the social determinants of health questionnaire and assess for any social work needs. Outreach scheduled.[facility]06-02-2025 History of Present illness Narrative* Chante [...] (Patient has been going to [facility] ([place]) for 3 weeks now) Any concerns with your DME equipment? No Any questions about your condition you are unsure about that I can help clarify? Yes (Discussed progress made and patient going to Cardiac Rehab. Discussed medications, medical bills- emailed patient HCAP application.) * Chante Hong RN - 07/24/2024 2:02 PM EDT [facility] 60 day outreach ADMIT DATE: 05/10/2024 [...] email the patient the HCAP application for [facility]. Discussed grab bars in the shower- the patient stated he has the grab bars but needs to arrange forsomeone to do that- patient stated he knows people who can do it through his scientologist. Discussed medications- no refills needed at this [...] 07/31/24. Ending BPCI program-complete. documented in this [facility]06-02-2025 Note90 day BPCI outreach made by CHANTEL Tijerina 07/31/24. Ending BPCI program-complete.[facility]06-02-2025 NoteBPCI 60 day outreach ADMIT DATE: 05/10/2024 DISCHARGE DATE: 05/16/2024 SURGERY: 05/10/24: s/p CABGx3 (PADILLA-LAD, RSVG-OM1, RSVG-PDA with endarterectomy), JUDY, RAYMOND with Dr. Velasco [facility]: FELICIA, Parkinson's disease, CAD, HTN, DM2 Called [...] email the patient the HCAP application for [facility]. Discussed grab bars in the shower- the patient stated he has the grab bars but needs to arrange for someone to do that- patient stated he knows people who can do it through his scientologist. Discussed medications- no refills needed at this time. Overall the patient is doing and feeling well. The patient stated he plans on walking more to increase his exercise and learned how important it is to keep moving at Cardiac Rehab. Scheduled BPCI 90 day outreach (90 day closure 08/14/24).[facility] 07-06-2024 Evaluation note* Diagnosis Onset Date Resolution Status Admit Date Anemia acute July 06, 2024 9:56am Atherosclerotic heart diseas e of [place] coronary artery without angina pectoris chronic July 06, 2024 9 :56am Carotid artery disease chronic Ma y 2024 9:56am Diastolic dysfunction chronic July 06, 2024 9:56am Mixed hyperlipidemia chronic July 06, 2024 9:56am Anemia acute October 02, 2 025 11:28am Type 2 diabetes mellitus wit h hyperglycemia acute October 02 11:28am Atherosclerotic heart diseas e of [place] coronary artery without angina pectoris chronic October 02 11:28am Carotid artery disease chronic Au zofia 2024 11:28am Diastolic dysfunction chronic Sep ust 2024 11:28am Mixed hyperlipidemia chronic Augu st 2024 11:28am [facility] Work Phone: 1(838) 132-614105-14-2025 History of Present illness Narrative* Miguel Angel Handy, TARYN - INSURANCE BUSINESS ANALYST - 07/05/2024 1:30 PM EDT Images from the original note were not included. [facility]: [facility] [address] [facility] [address] Dept: [phone] Dept Loc: [phone] Visit type: Established patient Reason for Visit: [...] circumstances: Recently seen in person, lives in [place] . The patient has been advised of [...] problems, and seek emergency medical treatment and/or [id number] if the patient deems either necessary. The patient stated that they are currently in the state [facility]. If the patient is a minor, [...] redirect to the Timeline version of the [employer] SmartLink. There were no vitals filed for this visit. Wt Readings from Last 3 Encounters: 06/22/24 207 lb (93.9 kg) 05/16/24 208 lb 3.2 oz (94.4 kg) 05/04/24 211 lb (95.7 kg) Physical exam deferred due to virtual visit-with audio (telephone) capabilities only. Data Reviewed and Summarized Labs/Imaging/Testing: reviewed EMR, see A&P for pertinent diagnostic results related to office visit Miguel Angel Handy, GAS TURBINE MECHANIC - INSURANCE BUSINESS ANALYST [1] Allergies Allergen Reactions Rosuvastatin Other Reaction(s): [...] a CPAP at bedtime documented in this [facility]05-06-2025 History of Present illness Narrative* Chante Hong [...] FELICIA, Parkinson's disease, CAD, HTN, DM2 Called [phone] and spoke to the patient. The patient is active with home care: PT, OT, SN-homecare through [facility] services. Patient stated overall he is doing well. Went over follow up appts with the patient: 07/05 Cardiothoracic Surgery Patient stated he seen PCP Patient asked about restrictions post surgery- patient will discuss with Miguel Angel at office visit on 07/05/24. [facility]-patient heard from them and he [...] warning. No further questions or concerns. Scheduled [facility] 60 day outreach to check on the patient. documented in this encounterSSouthern [facility] Medical [id number] Telephone encounter Note* Telephone Encounter - Leeanna Anderson - 06/23/2024 11:44 AM EDT [facility] to [id number] Miscellaneous Notes* Telephone Encounter - Leeanna Anderson - 06/23/2024 11:44 AM EDT Order sent to [facility]. * Telephone Encounter - Leeanna Anderson - 06/23/2024 11:35 AM EDT Orders Placed This Encounter Procedures [facility] Cardiac/Pulmonary Rehab Standing Status: Future Standing Expiration Date: 12/24/2024 Referral Priority: Routine Referral Type: Consultation Referral Reason: Specialty Services Required Requested Specialty: Cardiac Rehabilitation Number of Visits Requested: 1 documented in this encounterSSouthern [facility] Medical [id number] NoteOrders Placed This Encounter Procedures [facility] Cardiac/Pulmonary Rehab Standing Status: Future Standing Expiration Date: 12/24/2024 Referral Priority: Routine Referral Type: Consultation Referral Reason: Specialty Services Required Requested Specialty: Cardiac Rehabilitation [facility] Telephone encounter Note* Telephone Encounter - Leeanna Anderson - 06/23/2024 11:35 AM EDT Orders Placed This Encounter Procedures [facility] Cardiac/Pulmonary Rehab Standing Status: Future Standing Expiration Date: 12/24/2024 Referral Priority: Routine Referral Type: Consultation Referral Reason: Specialty Services Required Requested Specialty: Cardiac Rehabilitation Number of Visits Requested: 1 [facility] [id number] Note06/22/2024 Reviewed EMR prior to today's outreach. Noted Mr. Thrasher is home from [facility]. Plan for Cardiac Rehab. BPCI call made to Mr. Nimisha Thrasher. Introduced self and reviewed role on [facility]'s BPCI team. Verified Nimisha is able and agreeable to speak today. Assessed for needs or concerns. Nimisha shared he lives in [place] with his . He identified having a [...] GDMT for CABG. Able to discharge to [facility] on POD#06. 06/08/2024: Referral received from LIZZIE Brand with the BPCI program, with request to update the social determinants of health questionnaire and assess for any social work needs. Outreach scheduled.[facility]05-01-2025 History of Present illness Narrative* Miguel Angel Handy, TARYN - INSURANCE BUSINESS ANALYST - 06/22/2024 11:00 AM EDT Images from the original note were not included. [facility]: [facility] [address] [facility] [address] Dept: [phone] Dept Loc: [phone] Visit type: Established patient Reason for Visit: Post-op Assessment and Plan 1. S/P CABG (coronary artery bypass graft) - [facility] Cardiac/Pulmonary Rehab 05/10/24: s/p CABGx3 (PADILLA-LAD, [...] redirect to the Timeline version of the [employer] SmartLink. Vitals: 06/22/24 1118 BP: 129/67 Pulse: [...] visit TARYN Kraft CNP documented in this [facility]04-22-2025 Note06/13/24 1022 BPCI Late Drop? Program late drop? No BPCI Outreach Assessment Selection Which outreach assessment are you completing? 30 Day BPCI - 30 Day Outreach Did patient answer phone call? [facility]04-22-2025 NoteBPCI 30 day outreach ADMIT DATE: 05/10/2024 DISCHARGE DATE: 05/16/2024 SURGERY: 05/10/24: s/p CABGx3 (PADILLA-LAD, RSVG-OM1, RSVG-PDA with endarterectomy), RAYMOND KIM with Dr. Krista WILKS: FELICIA, Parkinson's disease, CAD, HTN, DM2 EMR reviewed. CM spoke to the patient last week- patient was at [facility] with plans to discharge home soon. Chart reviewed for BPCI outreach. Phone call to patient, no answer, left VM to please return call. Will follow up for next BPCI outreach. Scheduled BPCI PRN call to check on the patient since home from rehab.[facility] 06-08-2024 Note06/08/2024: Referral received from LIZZIE Brand with the BPCI program, with request to update the social determinants of health questionnaire and assess for any social work needs. Outreach scheduled.[facility]04-15-2025 [facility]04-15-2025 NoteBPCI 21 day outreach ADMIT DATE: 05/10/2024 DISCHARGE DATE: 05/16/2024 SURGERY: 05/10/24: s/p CABGx3 (PADILLA-LAD, RSVG-OM1, RSVG-PDA with endarterectomy), RAYMOND KIM with Dr. Krista WILKS: FELICIA, Parkinson's disease, CAD, HTN, DM2 Called and spoke to the patient. The patient reports he feels well in general and the patient remains at [facility]. The patient stated he may [...] and report to Cardiology. The patient sees Nonprofit Manager in [place]. DM2 Patient reports facility is checking his [...] outreach. Sending referral to CHANTEL Tijerina for eval.[place] [address]-08-2025 Note 05/30/24 0933 BPCI Late Drop? Program late drop? No BPCI Outreach Assessment Selection Which outreach assessment are you completing? 14 Day BPCI - 14 Day Outreach Did patient answer phone call? [place] [address]-08-2025 NoteBPCI 14 day outreach ADMIT DATE: 05/10/2024 DISCHARGE DATE: 05/16/2024 SURGERY: 05/10/24: s/p CABGx3 (PADILLA-LAD, RSVG-OM1, RSVG-PDA with endarterectomy), JUDY, RAYMOND with Dr. Velasco EMR reviewed. The patient had Telemedicine visit with Cardiothoracic Surgery 05/25/24. Chart reviewed for BPCI outreach. Phone call to patient, no answer, left VM to please return call. Will follow up for next BPCI outreach. Scheduled BPCI 21 day outreach.[facility]04-03-2025 History of Present illness Narrative* Miguel Angel Handy, TARYN - INSURANCE BUSINESS ANALYST - 05/25/2024 1:00 PM EDT Images from the original note were not included. [facility]: [facility] [employer] [facility] [address] [facility] [address] Dept: [phone] Dept Loc: [phone] Visit type: Established patient Reason for Visit: [...] appropriate andreasonable under the circumstances: Currently at [facility] . The patient has been advised of [...] stated that they are currently in the [facility]. If the patientis a minor, permission [...] GDMT for CABG. Able to discharge to [facility] on POD#06. 05/25/24: Spoke with patient and [...] redirect to the Timeline version of the [employer] SmartLink. There were no vitals filed for [...] visit TARYN Kraft CNP documented in this [place] 19937-01-2025 Note05/23/24 1116 BPCI Late Drop? Program late drop? No BPCI Outreach Assessment Selection Which outreach assessment are you completing? 7 Day BPCI - 7 Day Outreach Did patient answer phone call? [facility]04-01-2025 NoteBPCI 7 day outreach ADMIT DATE: 05/10/2024 [...] for next BPCI outreach-scheduled 14 day BPCI outreach.[facility]03-28-2025 Note05/19/24 1112 BPCI Late Drop? Program late drop? No BPCI Outreach Assessment Selection Which outreach assessment are you completing? 72 Hour BPCI - 72 Hour Outreach Did patient answer phone call? [facility]03-28-2025 NoteBPCI 72 hour outreach ADMIT DATE: 05/10/2024 [...] next BPCI outreach. Scheduled BPCI 7 day outreach.[facility]03-25-2025 [facility] 05-16-2024 Evaluation [...] 2024 9:56am Atherosclerotic heart diseas e of [place] coronary artery without angina pectoris chronic July 06, 2024 9 :56am Carotid artery disease chronic 2024 9:56am Diastolic dysfunction chronic July 06, 2024 9:56am Mixed hyperlipidemia chronic July 06, 2024 9:56am [facility] Work Phone: 1(773) 220-993203-25-2025 Evaluation note* Diagnosis Onset Date Resolution Status [...] 2024 9:56am Atherosclerotic heart diseas e of [place] coronary artery without angina pectoris chronic July 06, 2024 9 :56am Carotid artery disease chronic Ma y 2024 9:56am Diastolic dysfunction chronic July 06, 2024 9:56am Mixed hyperlipidemia chronic July 06, 2024 9:56am Anemia acute October 02, 2 025 11:28am Type 2 diabetes mellitus wit h hyperglycemia acute October 02 11:28am Atherosclerotic heart diseas e of [place] coronary artery without angina pectoris chronic October 02 11:28am Carotid artery disease chronic Au zofia 2024 11:28am Diastolic dysfunction chronic Sep ust 2024 11:28am Mixed hyperlipidemia chronic Augu st 2024 11:28am [employer] Work Phone: 1(648) 122-672303-25-2025 NoteBPCI Referral Received notification that the patient [...] GDMT for CABG. Able to discharge to [facility] on POD#06.[facility]03-25-2025 History of Present illness Narrative* TARYN [...] Will continue to monitor. * Abi Rios, NON LICENSED OPERATOR - 05/16/2024 8:41 AM EDT Images from the original note were not included. PHYSICAL THERAPY [facility] Treatment Note Name/MRN: Nimisha Thrasher ([id number]) Date of : 1940 Age: 84 y.o. [...] original note were not included. PHYSICAL THERAPY [facility] Treatment Note Name/MRN: Nimisha Thrasher ([id number]) Date of : 1940 Age: 84 y.o. [...] Minutes: 27 Minutes (tp; gait) Abi Rios NON LICENSED OPERATOR Cosigned by Eufemia Murillo, PT at 05/15/2024 10:25 AM EDT * Jasmyn Mcnally, GAS TURBINE MECHANIC - INSURANCE BUSINESS ANALYST - 05/15/2024 8:52 AM EDT Department of Internal Medicine Division of Endocrinology, Diabetes, & Metabolism Endocrinology Note Patient Name: Farhana Thrasher : 1940 AGE: 84 y.o. Room/Bed: T1-116/T1-116 A Admission Date: 05/10/2024 Visit Date: 05/15/2024 Reason for Endocrine Consult: post op heart Provider/Team Requesting Consult: CTS PCP: KELSEY MOON MD Outpt [place] Boner: No ASSESSMENT: DM2 with hyperglycemia and intermediate card tender insulin Stress hyperglycemia CABGX3 HLD/CAD Obesity Body [...] found for: CHOLHDLRATIO No results found for: [id number] No results found for: TSH, R1FGAJP, D1PWAEZ, THYROIDAB Radiology reportsas per the Radiologist Radiology: POCT glucose meter Result Date: 05/10/2024 Performed by: [employer] [facility], [address] [place] [address] CLIA ID: [id number] POCT glucose meter Result Date: 05/10/2024 Performed by: [employer] [facility], [address] [place] [id number] CLIA ID: [id number] History/Other: Past Medical History: Past Medical History: [...] note. * Miguel Angel Handy, TARYN - INSURANCE BUSINESS ANALYST - 05/15/2024 8:20 AM EDT Images from the original note were not included. Cardiothoracic Surgery/[facility] Progress Note PATIENT NAME: Farhana [...] of 22 minutes were spent between the cxjj-ta-srrw encounter, physical exam, reviewing the medical history, coordinating the patient's care, counseling/educating the patient, ordering medications/test/procedures, interpreting results and documenting clinical information in the patients electr on health record on the day of the encounter. The patient was seen and examined. Cardiac Core Medications: ASA, Statin, and BB EF: 55% (RAYMOND 05/10/24) Blood Conservation: Transfused. Nonprofit Manager: Dr. Elder Cosigned by Luis Parisi DO at 05/15/2024 9:02 PM EDT * Lilian Cisse MD - 05/14/2024 2:01 PM EDT Department of Internal Medicine Division of Endocrinology, Diabetes, & Metabolism Endocrinology Note Patient Name: Farhana Thrasher : 1940 AGE: 84 y.o. Room/Bed: [facility] A Admission Date: 05/10/2024 Visit Date: 05/14/2024 Reason for Endocrine Consult: post op heart Provider/Team Requesting Consult: CTS PCP: KELSEY MOON MD Outpt [place]: No ASSESSMENT: DM2 with hyperglycemia and intermediate card tender insulin Stress hyperglycemia CABGX3 HLD/CAD Obesity Body [...] found for: CHOLHDLRATIO No results found for: [id number] No results found for: TSH, B5YNYID, U9SFVJB, THYROIDAB Radiology reportsas per the Radiologist Radiology: POCT glucose meter Result Date: 05/10/2024 Performed by: Leonie Angel [facility], [address] [place] [address] CLIA ID: [id number] POCT glucose meter Result Date: 05/10/2024 [facility]: [facility], [address] [place] [address] CLIA ID: [id number] History/Other: Past Medical History: Past Medical History: [...] this note. * Carter Le APRN - INSURANCE BUSINESS ANALYST - 05/14/2024 11:37 AM EDT Images from the original note were not included. Cardiothoracic Surgery/CCM Progress Note PATIENT NAME: Farhana DALLASN: [id number] DATE: 05/14/24 HPI: 84 y.o. male referred [...] of 20 minutes were spent between the fizw-sj-yctw encounter, physical exam, reviewing the medical history, coordinating the patient's care, counseling/educating the patient, ordering medications/test/procedures, interpreting results and documenting clinical information in the patients [facility] health record on the day of the encounter. The patient was seen and examined independently andrelevant data reviewed by myself. A full chart review was performed. Patient discussed and plan of day developed from multidisciplinary rounds between Cardiothoracic Surgery (Cardiothoracic Surgeon, JULIO CESAR) and Critical Care Attending Cardiac Core Medications: ASA, Statin, and BB EF: 55% (RAYMOND 05/10/24) Blood Conservation: Transfused Nonprofit Manager: Dr. Elder Cosigned by Luz Hough DO at 05/14/2024 2:29 PM EDT Associated attestation - Luz Hough DO - 05/14/2024 2:29 PM EDT I have personally performed a gkgk-zo-pkwy diagnostic evaluation on this patient on date of service05/14/24. History, labs, imaging studies, and electronic medical record have been reviewed by me. This note documented by the []greenhouse laborer [x]JULIO CESAR reflects my history, exam, and [...] the original note were not included. Cardiothoracic Surgery/[facility] Progress Note PATIENT NAME: Farhana [...] of 21 minutes were spent between the tnib-zy-dihx encounter, physical exam, reviewing the medical history, [...] EF: 55% (RAYMOND 05/10/24) Blood Conservation: Transfused Nonprofit Manager: Dr. Elder Cosigned by Luz Hough DO at 05/13/2024 12:21 PM EDT Associated attestation - Luz Hough DO - 05/13/2024 12:21 PM EDT I have personally performed a zwfq-dm-lago diagnostic evaluation on this patient on date of service05/13/24. History, labs, imaging studies, and electronic medical record have been reviewed by me. This note documented by the []greenhouse laborer [x]JULIO CESAR reflects my history, exam, and [...] Thrasher : 1940 AGE: 84 y.o. Room/Bed: [facility]116/[facility] A Admission Date: 05/10/2024 Visit Date: 05/13/2024 Reason for Endocrine Consult: post op heart Provider/Team Requesting Consult: CTS PCP: KELSEY MOON MD Outpt [place] Boner: No ASSESSMENT: DM2 with hyperglycemia and retirement [...] found for: CHOLHDLRATIO No results found for: YKRH76URH No results found for: TSH, E7SRBYJ, Z1GCVTZ, THYROIDAB Radiology reportsas per the Radiologist Radiology: POCT glucose meter Result Date: 05/10/2024 Performed by: [facility], [address] [place] [address] CLIA ID: [id number] POCT glucose meter Result Date: 05/10/2024 Performed by: [facility], [address] [place] [address] CLIA ID: [id number] History/Other: Past Medical History: Past Medical History: [...] of this note. * Miguel Angel Handy, GAS TURBINE MECHANIC - INSURANCE BUSINESS ANALYST - 05/12/2024 1:17 PM EDT Images from [...] original note were not included. PHYSICAL THERAPY [facility] Treatment Note Name/MRN: Nimisha Thrasher ([id number]) Date of : 1940 Age: 84 y.o. [...] 6-9 x5 reps due to fatigue IS: 5609-9875 mL x5 reps Acapella: x5 reps Plan [...] Consult: CTS PCP: KELSEY MOON MD Outpt [place] Boner: No ASSESSMENT: DM2 with hyperglycemia and retirement [...] found for: CHOLHDLRATIO No results found for: VHTM30OPU No results found for: TSH, I3IJNID, Q8ELEZQ, THYROIDAB Radiology reportsas per the Radiologist Radiology: POCT glucose meter Result Date: 05/10/2024 Performed by: [facility], [address] [place] [address] CLIA ID: [id number] POCT glucose meter Result Date: 05/10/2024 Performed by: [facility], [address] [place] [address] CLIA ID: [id number] History/Other: Past Medical History: Past Medical History: [...] patient. In addition, I have reviewed the resident's/SENIOR ACCOUNTS PAYABLE CLERK/HOME HEALTH LPN's care plan and agree with those findings [...] imaging are reviewed as detailed in the resident's/SENIOR ACCOUNTS PAYABLE CLERK/HOME HEALTH LPN's note * Miguel Angel Handy, GAS TURBINE MECHANIC - INSURANCE BUSINESS ANALYST - 05/12/2024 7:10 AM EDT Images from the original note were not included. Cardiothoracic Surgery/[facility] Progress Note PATIENT NAME: Farhana Thrasher DATE: 05/12/24 HPI: Nimisha Thrasher is a 84 y.o. male referred by Dr. Eledr for CABG. Patient has history of CAD, [...] PAP at night. Weaned off of pressors, [place] removed. Pain tolerable, up walking with nursing. [...] EF: 55% (RAYMOND 05/10/24) Blood Conservation: Transfused Nonprofit Manager: Dr. Elder Cosigned by Luz Hough DO at 05/12/2024 3:54 PM EDT Associated attestation - Luz Hough DO - 05/12/2024 3:54 PM EDT I have personally performed a nlvo-gd-bkyy diagnostic evaluation on this patient on date of service05/12/24. History, labs, imaging studies, and electronic medical record have been reviewed by me. This note documented by the []greenhouse laborer [x]JULIO CESAR reflects my history, exam, and [...] original note were not included. PHYSICAL THERAPY [facility] Initial Evaluation Name/MRN: Nimisha Thrasher ([id number]) Evaluation Date: 05/11/2024 Date of : 1940 [...] Problem List Diagnosis Date Noted CAD in [place] artery 05/10/2024 FELICIA (obstructive sleep apnea) 05/04/2024 [...] of Care supervision is transferred to a [facility] Physical Therapist. Goals and/or treatment plan was established in collaboration with patient/family/other representatives. * Stacey Llanos OT - 05/11/2024 11:13 AM EDT Images from the original note were not included. OCCUPATIONAL THERAPY [facility] Initial Evaluation Name/MRN: Nimisha Thrasher ([id number]) Evaluation Date: 05/11/2024 Date of : 1940 [...] Problem List Diagnosis Date Noted CAD in [place] artery 05/10/2024 FELICIA (obstructive sleep apnea) 05/04/2024 [...] 06/08/24 Therapy Time Individual Co-Treatment Co-Evaluation Time 4650-4160 AND 3339-1269 Minutes 42 (Timed treatment minutes: 25 (2-FA)) Patient's Occupational Therapy Plan of Care supervision is transferred to a [facility] Occupational Therapist. Goals and/or treatment plan was established in collaboration with patient/family/other representatives. Stacey Llanos OTR/L * Jasmyn Mcnally, GAS TURBINE MECHANIC - INSURANCE BUSINESS ANALYST - 05/11/2024 9:01 AM EDT Department of Internal Medicine Division of Endocrinology, Diabetes, & Metabolism Endocrinology Note Patient Name: Farhana Thrasher : 1940 AGE: 84 y.o. Room/Bed: [facility]116/[facility] A Admission Date: 05/10/2024 Visit Date: 05/11/2024 Reason for Endocrine Consult: post op heart Provider/Team Requesting Consult: CTS PCP: KELSEY MOON MD Outpt Turkey Boner: No ASSESSMENT: DM2 with hyperglycemia and retirement [...] 1-50 Units/hr, Last Rate: 1.5 Units/hr (05/11/24 6948) lactated ringers, 250 mL, Last Rate: Stopped [...] found for: CHOLHDLRATIO No results found for: IOBS49NZD No results found for: TSH, A4XXFTT, P7FFFRS, THYROIDAB Radiology reportsas per the Radiologist Radiology: POCT glucose meter Result Date: 05/10/2024 Performed by: [facility], [address] [place] [address] CLIA ID: [id number] POCT glucose meter Result Date: 05/10/2024 Performed by: Leonie Stanley [facility], [address] [place] [address] CLIA ID: [id number] History/Other: Past Medical History: Past Medical History: [...] patient. In addition, I have reviewed the resident's/SENIOR ACCOUNTS PAYABLE CLERK/HOME HEALTH LPN's care plan and agree with those findings [...] imaging are reviewed as detailed in the resident's/SENIOR ACCOUNTS PAYABLE CLERK/HOME HEALTH LPN's note * Miguel Angel Handy APRN - [...] or diaphoretic. Neck: Comments: Central line and [place]. Cardiovascular: Rate and Rhythm: Normal rate and [...] anemia/consumptive thrombocytopenia Plan: Patient status: ICU Remove [place]. Wean levophed as able, goal MAP>65. -Remove [...] EF: 55% (RAYMOND 05/10/24) Blood Conservation: Transfused Nonprofit Manager: Dr. Elder Cosigned by Luz Hough DO at 05/11/2024 5:59 PM EDT Associated attestation - Luz Hough DO - 05/11/2024 5:59 PM EDT I have personally performed a iiet-ea-jebh diagnostic evaluation on this patient on date of service05/11/24. History, labs, imaging studies, and electronic medical record have been reviewed by me. This note documented by the []greenhouse laborer [x]JULIO CESAR reflects my history, exam, and [...] issues receiving the product for transfusion at *46574 ([facility]) or *68567 ([facility]) Comment: Close clinical monitoring is indicated to [...] Calle RCP - 05/10/2024 3:19 PM EDT [facility] Respiratory Care Department Progress Note Spontaneous [...] 05/10/24 1105 05/10/24 1347 PHART 7.352 7.313* GCY0LJO 43.0 39.5 PO2ART 387.1* 177.8* RGV2EJF 23.3 19.6* T7DAJYVZ Ventilator Ventilator Does this patient meet criteria for termination of mechanical ventilation Yes- Notified physician below Name of physician notified via secure chat or in person : nurse (NA if patient did not meet criteria) Comments: Thank you for involving Respiratory in the care of this patient, documented in this [facility]03-25-2025 Nurse Note* Clara Romero RN - 05/16/2024 10:24 AM EDT [facility] documented in this [facility]03-25-2025 NoteDischarge Summary: Cardiothoracic Surgery Farhana Thrasher, 84 y.o., 1940 ADMIT DATE: 05/10/2024 DISCHARGE DATE: 05/16/2024 VISIT STATUS: Admission CODE STATUS: Full Code DISCHARGING SURGEON: Daysi Velasco MD, Office Number: [phone] DISCHARGE DIAGNOSES: CAD s/p CABG T2DM, A1c [...] TEAM: Primary Care Physician: KELSEY MOON MD Nonprofit Manager: Dr. Elder SURGERY: 05/10/24: s/p CABGx3 (PADILLA-LAD, [...] GDMT for CABG. Able to discharge to [facility] on POD#06. DIAGNOSTICS: BP (!) 130/49 (BP [...] % ointment Commonly known (more content not included)...[facility]03-25-2025 Hospital course Narrative* Miguel Angel Handy, GAS TURBINE MECHANIC - INSURANCE BUSINESS ANALYST - 05/16/2024 10:11 AM EDT Images from the original note were not included. Discharge Summary: Cardiothoracic Surgery Farhana Thrasher, 84 y.o., 1940 ADMIT DATE: 05/10/2024 DISCHARGE DATE: 05/16/2024 VISIT STATUS: Admission CODE STATUS: Full Code DISCHARGING SURGEON: Daysi Velasco MD, Office Number: [phone] DISCHARGE DIAGNOSES: CAD s/p CABG T2DM, A1c [...] TEAM: Primary Care Physician: KELSEY MOON MD Nonprofit Manager: Dr. Elder SURGERY: 05/10/24: s/p CABGx3 (PADILLA-LAD, [...] GDMT for CABG. Able to discharge to [facility] on POD#06. DIAGNOSTICS: BP (!) 130/49 (BP [...] UP: 05/25/24 at 01:00PM, phone call. [address] [facility] [address], [place] [address] Dept: [phone] Dept CORE CARDIAC MEDICATIONS PRESCRIBED AT DISCHARGE: [...] 05/16/2024 12:26 PM EDT documented in this [facility]03-25-2025 Hospital Discharge instructions* Discharge Instructions* Miguel Angel Handy, GAS TURBINE MECHANIC - INSURANCE BUSINESS ANALYST - 05/16/2024 9:58 AM EDT Images from the original note were not included. [facility]: Cardiothoracic Surgery [address] [facility] #[phone] Notify us if the following occur - [...] Emergency Contact: Lala Thrasher Mobile Relation: Spouse Special Weapons Unit Officer needed? No Past Surgical History: Past Surgical History: Procedure Laterality Date CATARACT EXTRACTION Bilateral CHOLECYSTECTOMY PILONIDAL CYST EXCISION PROSTATECTOMY TONSILLECTOMY Immunization History: Immunization History Administered Date(s) Administered COVID-19, mRNA, LNP-S, PF, 50 mcg/0.5 mL 12/29/2022 Covid-19, Moderna Bivalent Booster, (Age 6y-11y) 09/01/2022 Moderna SARS-CoV-2 Vaccination 04/04/2020, 05/01/2020 Active Problems: Medical Problems Problem List * (Principal) CAD in [place] artery FELICIA (obstructive sleep apnea) History of [...] Minimal assistance Toileting Minimal assistance Feeding Independent Broom Machine Operator Independent Med Delivery yes Wound Care Documentation [...] Discharging to Facility/ Agency Name: [facility] Address: [address] [place], [place] [id number] Fax: Dialysis Facility (if applicable) Name: Address: Dialysis Schedule: Phone: Fax: Auto Hiker/Bottle Dealer signature: ICIAN SECTION Name: Farhana Thrasher Prognosis: good Condition at Discharge: stable Rehab Potential (if transferring to Rehab): good Recommended Labs or Other Treatments After Discharge: BMP to monitor creatinine and electrolytes daily. Lasix and K supplement. GIANNA wraps to BLE. PT/OT. The individual is being admitted to a nursing facility directly from an [facility] or a unit of a [facility] that is not operated by or licensed by [facility] under section 5119.14 or 5160-3-15.1 5 [...] GDMT for CABG. Able to discharge to [facility] on POD#06. PHYSICIAN SIGNATURE: Wound care/dressing changes: [...] 01:00PM Post op follow up->phone call from GAS TURBINE MECHANIC. In person visit to be scheduled once Dc'd from [facility]. [address] [place] [address] documented in this [facility]03-25-2025 Miscellaneous Notes* Care Coordination - Prema Chilel RN - 05/16/2024 9:33 AM EDT [facility]. Requested discharge order, completed LAURA and transportation be set up. * Care Coordination - ALVARADO Villavicencio - 05/16/2024 9:26 AM EDT CHANTEL arranged transport through [facility] to [facility] at 11:00 am. TCC, RN, Facility, Mechanical Tech, Pt and Pt's spouse notified. * Care [...] EDT SW [facility] Licha stated that she just received pt's [...] AM EDT Referral placed to [facility] request. Await review and response regarding ability to accept. TCC notified. * Care Coordination - Unknown Case Management - 05/15/2024 10:02 AM EDT Patient Choice Patient Name: FARHANA THRASHER Date of : 1940 All Providers Sent Referral Name: [facility] Address: [address] [place] [address] * Care Coordination - Prema Chilel RN - 05/15/2024 9:49 AM EDT Care Management Progress Note Patient remains in ICU s/p CABG x 3 05/10. PT recommending IPR. Discussion had with Patient, Spouse and HEAD WELL PULLER at the bedside regarding Rehab. Patient is requesting a referral to [facility]. Referral requested to [facility] in [facility]. Length of Stay (Days): 5 GMLOS: 5.8 [...] Intraoperative transesophageal echocardiography Surgeon: Daysi Velasco MD Competitive Intelligence Manager(s): [] Yesenia Taylor [] Gladis Melgar [x] [...] protected. An appropriate timeout was conducted. [facility] [place] [facility] Cardiopulmonary Bypass: A LEFT [...] proceeded with closure. The sternum was reapproximated bhmepd-ay-imlux wires and the overlying tissues were closed in multiple layers. The patient was transported to the intensive care unit in serious but stable condition. documented in this [facility]03-24-2025 NoteSW reached out to Licha at [facility]. Licha stated that she just received pt's referral and that it needed reviewed by the Dr. Licha stated that it would be the end of the day when she would know if pt is accepted. SW provided TCC's information for Licha to follow up when acceptance is approved/denied. CHANTEL notified pt and will continue to follow. 03-24-2025 NoteReferral placed to [facility] request. Await review and response regarding ability to accept. TCC notified. 03-24-2025 NoteCare Management Progress Note Patient remains in ICU s/p CABG x 3 05/10. PT recommending IPR. Discussion had with Patient, Spouse and HEAD WELL PULLER at the bedside regarding Rehab. Patient is requesting a referral to [facility]. Referral requested to [facility] Length of Stay (Days): 5 GMLOS: 5.8[facility]03-24-2025 NoteCardiothoracic Surgery/CCM Progress Note PATIENT NAME: [...] of 22 minutes were spent between the chdo-bj-ejnw encounter, physical exam, reviewing the medical history, coordinating the patient's care, counseling/educating the patient, ordering medications/test/procedures, interpreting results and documenting clinical information in the patients electronic health record on the day of the encounter. The patient was seen and examined. Cardiac Core Medications: ASA, Statin, and BB EF: 55% (RAYMOND 05/10/24) Blood Conservation: Transfused. Nonprofit Manager: Dr. Elder [facility] [id number] NotePHYSICAL THERAPY [facility] Initial Evaluation Name/MRN: Nimisha Thrasher ([id number]) Evaluation Date: 05/11/2024 Date of : 1940 [...] Problem List Diagnosis Date Noted CAD in [place] artery 05/10/2024 FELICIA (obstructive sleep apnea) 05/04/2024 [...] Raw Score (No Stairs) : 11 [id number] -[facility] Score: Walked 10 steps or more (i.e. walked to restroom) Plan Pt would benefit from skilled acute PT services to address Strengthening, Gait Training, Bal (more content not included)...[facility]03-20-2025 NoteNutrition Assessment Type and Reason for Visit: Initial, Consult, Patient Education (s/p open heart surgery) Nutrition Recommendations/Plan: Continue 5 carb choices (75 g/meal) diet as ordered Per MNT protocol, will order Ensure HP BID Monitor swallowing for indication for BEET TOPPER evaluation. Pt reports hx of swallowing issues [...] loss Fluid Accumulation: Moderate to Severe Extremities Bark Scaler Strength: Not Performed Nutrition Assessment: Per chart: [...] On: Kcal/kg Weight Used for Energy Requirements: [place] Weight for Energy Calculation (kg): 67.1 kg (25-30 kcal/kg) Total Energy Requirements (kcals/day): 8694-2131 Weight Used for Protein Requirements: [place] Weight in Kg Used for Protein Requirements: [...] Therapies: Adult diet R (more content not included)...[facility]03-20-2025 Consult note* Telma Morfin, RD - 05/11/2024 1:30 PM EDTAssociated Order(s): IP CONSULT TO DIETITIAN Nutrition Assessment Type and Reason for Visit: Initial, Consult, Patient Education (s/p open heart surgery) Nutrition Recommendations/Plan: Continue 5 carb choices (75 g/meal) diet as ordered Per MNT protocol, will order Ensure HP BID Monitor swallowing for indication for BEET TOPPER evaluation. Pt reports hx of swallowing issues [...] loss Fluid Accumulation: Moderate to Severe Extremities Bark Scaler Strength: Not Performed Nutrition Assessment: Per chart: [...] On: Kcal/kg Weight Used for Energy Requirements: [place] Weight for Energy Calculation (kg): 67.1 kg (25-30 kcal/kg) Total Energy Requirements (kcals/day): 3481-0230 Weight Used for Protein Requirements: [place] Weight in Kg Used for Protein Requirements: [...] lb) (06/13) % Weight Change (Calculated): 3 [place] Body Weight (lbs) (Calculated): 148 lbs [place] Body Weight (Kg) (Calculated): 67 kg % [place] Body Weight (Calculated): 144.8 % BMI (kg/m2) [...] to determine Telma Morfin RD, LD Contact: *[phone] or via BenchBank[employer] chat * Denae Rosales - 05/11/2024 8:52 AM EDTAssociated Order(s): IP CONSULT TO CARDIAC REHAB Received referral and reviewed chart. Phase II Cardiopulmonary Rehab Referral discussed with Farhana Thrasher. Patient prefers cardiopulmonary rehab at [facility]. Given information on program at preferred location. * Jasmyn Mcnally APRN - INSURANCE BUSINESS ANALYST - 05/10/2024 12:25 PM EDTAssociated Order(s): IP CONSULT TO ENDOCRINOLOGY Department of Internal Medicine Division of Endocrinology, Diabetes, & Metabolism Endocrinology Note Patient Name: Farhana Thrasher : 1940 AGE: 84 y.o. Room/Bed: OR/NONE Admission Date: 05/10/2024 Visit Date: 05/10/2024 Reason for Endocrine Consult: post op heart Provider/Team Requesting Consult: CTS PCP: KELSEY MOON MD Outpt [place]: No ASSESSMENT: DM2 with hyperglycemia and retirement [...] found for: CHOLHDLRATIO No results found for: [id number] No results found for: TSH, Z6NBAKN, S3OPZXR, THYROIDAB Radiology reportsas per the Radiologist Radiology: POCT glucose meter Result Date: 05/10/2024 Performed by: [facility], [address] [place] [id number] CLIA ID: [id number] POCT glucose meter Result Date: 05/10/2024 Performed by: [facility], [address] [place], [place] [address]IA ID: [id number] History/Other: Past Medical History: Past Medical History: [...] patient. In addition, I have reviewed the resident's/SENIOR ACCOUNTS PAYABLE CLERK/HOME HEALTH LPN's care plan and agree with those findings [...] imaging are reviewed as detailed in the resident's/SENIOR ACCOUNTS PAYABLE CLERK/HOME HEALTH LPN's note * Miguel Angel Handy, GAS TURBINE MECHANIC - INSURANCE BUSINESS ANALYST - 05/10/2024 12:17 PM EDT Images from the original note were not included. [facility]: Critical Care Consultation Note Date: [...] Comments: ETT/OG. Neck: Comments: Central line and [place]. Cardiovascular: Rate and Rhythm: Normal rate and [...] PM EDT I have personally performed a [id number]-[id number] diagnostic evaluation on this patient on date of service05/10/24. History, labs, imaging studies, and electronic medical record have been reviewed by me. This note documented by the []greenhouse laborer [x]JULIO CESAR reflects my history, exam, and [...] set to back up -monitor hemodynamics via [place] bárbara. Currently on low dose epi gtt [...] so far today, excludingprocedures. documented in this [facility]03-20-2025 NoteOCCUPATIONAL THERAPY [facility] Initial Evaluation Name/MRN: Nimisha Thrasher ([id number]) Evaluation Date: 05/11/2024 Date of : 1940 [...] Pt is cooperative and agreeable to OT. [place] present with pt permission. Pain: [place] Pain [...] Problem List Diagnosis Date Noted CAD in [place] artery 05/10/2024 FELICIA (obstructive sleep apnea) 05/04/2024 [...] Daily Activity Raw Score: 14 ADL Inpatient [facility] G-Code Modifier: CK Plan Pt would benefit [...] Learning: None Education Outcome: (more content not included)...[facility] 05-11-2024 NoteReceived referral and reviewed chart. Phase II Cardiopulmonary Rehab Referral discussed with Farhana Thrasher. Patient prefers cardiopulmonary rehab at [facility]. Given information on program at preferred location. 03-19-2025 [facility] Respiratory Care Department Progress Note Spontaneous [...] 05/10/24 1105 05/10/24 1347 PHART 7.352 7.313* HQL8FJE 43.0 39.5 PO2ART 387.1* 177.8* XVO8SGX 23.3 19.6* [id number] Ventilator Ventilator Does this patient meet criteria for termination of mechanical ventilation Yes- Notified physician below Name of physician notified via secure chat or in person : nurse (NA if patient did not meet criteria) Comments: Thank you for involving Respiratory in the care of this patient, [facility]03-19-2025 NotePatient: Nimisha Thrasher Procedure Summary Date: 05/10/24 Room / Location: [facility] [address] [place] [address] Operating Room Anesthesia Start: 722 Anesthesia Stop: [...] Allowed opportunity for questions and acknowledgement of understanding.[facility] [id number] NotePatient: Nimisha Thrasher Procedure Summary Date: 05/10/24 Room / Location: [address] Operating Room Anesthesia Start: 722 Anesthesia [...] discharged once all PACU criteria has been met.[facility] [id number] NoteCentral Venous Line: Date/Time: 05/10/2024 8:00 AM [...] complications. Staffing Performed: anesthesiologist Anesthesiologist: [place] Medel [facility]03-19-2025 Note Arterial Line: Date/Time: 05/10/2024 7:30 [...] of chloraprep and sterile gloves Staffing Performed: [facility] Resident/VACUUM FORM OPERATOR: Sheldon Martin APRN - [facility]03-19-2025 Note Airway Date/Time: 05/10/2024 7:30 AM Urgency: scheduled General Information and Staff Patient location during procedure: Procedural Resident/VACUUM FORM OPERATOR: TARYN Mcnair CRNA Performed: VACUUM FORM OPERATOR Indications and Patient Condition Indications for airway [...] Additional Comments Atraumatic placement of ETT, dentition intact[facility]03-19-2025 NoteH&P reviewed. The patient was examined and there are no changes to the H&P. [facility]03-19-2025 History and physical note* Daysi Velasco MD - 05/10/2024 7:08 AM EDT H&P reviewed. The patient was examined and there are no changes to the H&P. Source Note - Daysi Velasco MD - 04/25/2024 12:00 PM EST Images from the original note were not included. [facility] CARDIOVASCULAR & THORACIC SURGERY [address] [facility] [address] Dept: [phone] Dept Loc: [phone] Visit type: New Reason for Visit: Multivessel [...] This note may have been dictated using [employer] Medical Practice Edition 2.6 and/or CytoVale Voice Recognition Feature. The document was proofread, however unrecognized voice recognition fence installer helper errors may be present. documented in this [facility]03-13-2025 NotePatient: Nimisha Thrasher Procedure Information Date/Time: 05/10/24 0730 Procedures: CORONARY ARTERY BYPASS GRAFT (Chest) - 7:30 am, 5 hours ECHOCARDIOGRAM, TRANSESOPHAGEAL Location: [facility] Operating Room Surgeons: Daysi Velasco MD Relevant Problems Anesthesia Also has central sleep apnea (+) History of motion sickness (+) FELICIA (obstructive sleep apnea) Cardio (+) CAD in [place] artery Pulmonary (+) FELICIA (obstructive sleep apnea) [...] Additional Equipment: ultrasound, Transport Vent and Pacer [facility] EyeVerify [id number] NoteComprehensive Pre Surgical History and Physical ? Name: Farhana Thrasher : 1940 (Age-84 y.o.) Date of Service: Pt seen/examined on 05/04/2024 Procedure Information Date/Time: 05/10/24 0730 Procedures: CORONARY ARTERY BYPASS GRAFT (Chest) - 7:30 am, 5 hours ECHOCARDIOGRAM, TRANSESOPHAGEAL Location: [facility] [address] [place] [address] Operating Room Surgeons: Daysi Velasco MD Chief [...] - Managed by Dr. Elder in cardiology ([place]) 4) Parkinsonism - pt denies dx of [...] pulse ox) with this patient due to FEILCIA and increased risks. 9) Former Smoker - [...] No new complaints. No (more content not included)...[facility]03-04-2025 Note* Addendum Note - TARYN Martinez CNP - 04/25/2024 1:57 PM ESTAddended by: CARTER LE on: 04/25/2024 01:57 PM Modules accepted: Orders [facility] [id number] Miscellaneous Notes* Addendum Note - TARYN Martinez [...] mouth rinse [] Other: documented in this [facility]03-04-2025 NotePrep for Procedure Order Request: 04/25/24 Surgeon: Dr. Velasco Surgery/Procedure: CABG, RAYMOND Diagnosis: CAD Plan Admit: yes PAT Appointment: yes Date if yes: 05/04/24 10:30 am [facility] Date of Surgery/Procedure: 05/10/24 7:30 am Medications: [] Hold as directed by CTS: [x] Per PAT protocol Medication needed prescribed: [] None [x] Nasal ointment and mouth rinse [] Other: [facility]03-04-2025 Telephone encounter Note* Telephone Encounter - Leeanna [...] Nasal ointment and mouth rinse [] Other: [facility] [id number] History of Present illness Narrative* Daysi Velasco MD - 04/25/2024 12:00 PM EST Images from the original note were not included. [facility]ARDIOV[facility]ORACIC SURGERY [address] [facility] [address] Dept: [phone] Dept Loc: [phone] Visit type: New Reason for Visit: Multivessel [...] This note may have been dictated using [employer] Medical Practice Edition 2.6 and/or CytoVale Voice Recognition Feature. The document was proofread, however unrecognized voice recognition fence installer helper errors may be present. documented in this [facility]03-04-2025 [facility] CARDIOVASCULAR & THORACIC SURGERY [address] [facility] [address] Dept: [phone] Dept Loc: [phone] Visit type: New Reason for Visit: Multivessel [...] tenderness. Abdominal: Julio Cesar (more content not included)...[facility]03-03-2025 Chief complaint+Reason for visit Narrative* Chief [...] 8:24 am Atherosclerotic heart diseas e of [place] coronary artery without angina pectoris April 24, [...] 9:56a m Atherosclerotic heart diseas e of [place] coronary artery without angina pectoris July 06, 2024 9:56am Carotid artery disease July 06, 2024 9: 56am Diastolic dysfunction July 06, 2024 9:5 6am Mixed hyperlipidemia July 06, 2024 9:56 am [facility] Work Phone: 1(374) 660-752703-03-2025 Evaluation note* Diagnosis Onset Date Resolution Status Admit Date Abnormal cardiovascular stre ss test acute April 24, 2024 8:24am Chest pain acute April 24 8:24am Atherosclerotic heart diseas e of [place] coronary artery without angina pectoris chronic April [...] 2024 9:56am Atherosclerotic heart diseas e of [place] coronary artery without angina pectoris chronic July 06, 2024 9 :56am Carotid artery disease chronic Ma y 2024 9:56am Diastolic dysfunction chronic July 06, 2024 9:56am Mixed hyperlipidemia chronic July 06, 2024 9:56am [facility] Work Phone: 1(604) 283-996302-28-2025 [facility]01-30-2025 Evaluation note* Diagnosis Onset Date Resolution Status Admit Date Atherosclerotic heart diseas e of [place] coronary artery without angina pectoris chronic March 23 1:16pm Carotid artery disease chronic Ja nuary 2024 1:16pm Diabetes mellitus chronic March 23, 2024 1:16pm Diastolic dysfunction chronic Nahum uary 2024 1:16pm Mixed hyperlipidemia chronic Laron ricki 2024 1:16pm Parkinsonism chronic February 1:16pm Abnormal cardiovascular stre ss test acute April 24, 2024 8:24am Chest pain acute April 24 8:24am Atherosclerotic heart diseas e of [place] coronary artery without angina pectoris chronic April [...] apnea, obstructive chronic May 16, 2024 12:37pm [facility] Work Phone: 1(154) 377-909801-30-2025 Evaluation note* Diagnosis Onset Date Resolution Status Admit Date Atherosclerotic heart diseas e of [place] coronary artery without angina pectoris chronic March [...] 24 8:24am Atherosclerotic heart diseas e of [place] coronary artery without angina pectoris chronic April [...] April 12:37pm Atherosclerotic heart diseas e of [place] coronary artery without angina pectoris chronic June 9:56am Carotid artery disease chronic Ma y 2024 9:56am Diastolic dysfunction chronic July 06, 2024 9:56am Mixed hyperlipidemia chronic July 06, 2024 9:56am [facility] Work Phone: 1(122) 448-788201-30-2025 Evaluation note* Diagnosis Onset Date Resolution Status Admit Date Atherosclerotic heart diseas e of [place] coronary artery without angina pectoris chronic March [...] 24 8:24am Atherosclerotic heart diseas e of [place] coronary artery without angina pectoris chronic April [...] 2024 9:56am Atherosclerotic heart diseas e of [place] coronary artery without angina pectoris chronic June 9:56am Carotid artery disease chronic Ma y 2024 9:56am Diastolic dysfunction chronic July 06, 2024 9:56am Mixed hyperlipidemia chronic July 06, 2024 9:56am [facility] Work Phone: 1(458) 107-303004-07-2022 Influenza virus A and B RNA and SARS-CoV-2 (COVID-19) N gene panel BRIAN+probe (Resp)COVID 19 RESULT: SARS-CoV-2 (Agent of COVID-19) Not Detected by RT-PCR or equivalent method. celina [id number]_Zlpzd [employer] (AVNI)_EUA This test was developed and its performance characteristics determined by [facility]'s RobertJ. [facility] Laboratory [facility] [place]. This test has been authorized by FDA under an Emergency Use Authorization (EUA). This test has been validated in accordance with the FDA's Guidance Document Policy for DiagnosticsTesting in Laboratories Certified to Perform High Complexity Testing under CLIA prior to Emergency use Authorization for Coronavirus Disease 2019 during the Public Health Emergency issued on April 22, 2019. Test performed by [facility], [place] [facility] [place], [facility] [place] [address]. INFLUENZA A PCR: Negative for Influenza A by RT-PCR INFLUENZA B PCR: Negative for Influenza B by RT-PCRDoctors Hospital on above: Performed By: #### [id number] #### [facility] CLIA [id number] [address] [place] [address] [address]04-07-[address]22 NoteHNO ID: [id number] Author: Yoselin Khan APRN.INSURANCE BUSINESS ANALYST Service: ? Author Type: Nurse Practitioner Type: Progress Notes Filed: 05/29/2021 10:25 AM Note Text: Subjective Patient came in because he was exposed to covid a week ago and has no symptoms at this time. The history is provided by the patient. No medical language specialist was used. Review of Systems Constitutional: [...] as directed) blood sugar diagnostic (ACCU-CHEK CLARITZA) [facility] test strip CHECK BLOOD SUGARS 3-4 TIMES [...] - COVID WITH FLUA+B, ROUTINE Yoselin Khan APRN.[facility] History of Present illness Narrative* Yoselin Khan APRN.INSURANCE BUSINESS ANALYST - 05/29/2021 10:09 AM EDT Subjective Patient came in because he was exposed to covid a week ago and has no symptoms at this time. The history is provided by the patient. No medical language specialist was used. Review of Systems Constitutional: [...] as directed) blood sugar diagnostic (ACCU-CHEK CLARITZA) [facility] test strip CHECK BLOOD SUGARS 3-4 TIMES [...] - COVID WITH FLUA+B, ROUTINE Yoselin Khan APRN.INSURANCE BUSINESS ANALYST documented in this [facility]-2022 NoteHNO ID: [id number] Author: Alix Valle APRN.HEBER Service: ? Author Type: Nurse Practitioner Type: Progress Notes Filed: 05/23/2021 3:33 PM Note Text: This note was created using Inovance Financial Technologiesriter. Subjective Farhana Thrasher is a 81 year [...] as directed) blood sugar diagnostic (ACCU-CHEK CLARITZA) [facility] test strip CHECK BLOOD SUGARS 3-4 TIMES [...] ASYMPTOMATIC ELECTIVE COVID-19 Sadiq Massey TEACHING PROVIDER (Physician/PA/GAS TURBINE MECHANIC) NOTE OF PERSONAL INVOLVEMENT IN CARE: I have personally seen and examined the patient and performed the medical decision-making components. I have reviewed the Advanced Practice Registered Nurse (GAS TURBINE MECHANIC) Student's documentation and verified the findings in the note as written. Any additions or changes are noted in bold/italics. Signature: Alix Tori Date: 05/23/2021 Time: 3:32 [facility]04-01-2022 Instructions* Patient Instructions* Sadiq Massey - [...] to your local emergency facility: Notify the grapple yarder operator that you are seeking care for [...] can be around others. documented in this [facility] History of Present illness Narrative* Alix Valle APRN.INSURANCE BUSINESS ANALYST - 05/23/2021 11:42 AM EDT This note was created using [employer] Financial Technologiesriter. Subjective Farhana Thrasher is a 81 year [...] ASYMPTOMATIC ELECTIVE COVID-19 Sadiq Massey TEACHING PROVIDER (Physician/PA/GAS TURBINE MECHANIC) NOTE OF PERSONAL INVOLVEMENT IN CARE: I have personally seen and examined the patient and performed the medical decision-making components. I have reviewed the Advanced Practice Registered Nurse (GAS TURBINE MECHANIC) Student's documentation and verified the findings in the note as written. Any additions or changes are noted in bold/italics. Signature: Alix Valle Date: 05/23/2021 Time: 3:32 PM documented in this encounterAs[facility]10-30-2017 Fall risk assessment [facility] assessmentWcorewell [facility] Work Phone: 1(002)[phone] Fall risk [id number]/23FALLSharp [facility] risk assessmentBlindiana [facility] [employer] Work Phone: Discharge summary Author Tiara [facility] Note Date/Time September 08, 2024 1:22 pm [facility] Medical Records Department [address] [place] [address] Emergency Department Summary 09/08/24 MR#: [id number] Acct: [id number] Name: Joaquin THRASHER Rep #:[id number] : 1940 84 From: Tiara Carlin [...] contractions Sinus bradycardia Atherosclerotic heart disease of [place] coronary artery without angina pectoris Diabetes type [...] (Auto) 65.0 Lymph % (Auto) 17.6 L [place] % (Auto) 13.8 H Eos % (Auto) [...] vascular disease of the aorta. Reading Location: [facility] Rhythm Strip Rhythm Strip: Sinus Rhythm [...] return to the emergency room. Print Language: Dutch Disposition Disposition: Home, Self Care What to do if you have Problems For any increased pain, shortness of breath, bleeding, nausea or vomiting, chestpain, or any unexpected problems, contact your Primary Care Provider. Call [facility] ([phone]) or report to the closest Emergency Room. Call 911 if necessary. 09/08/24 1322 <Electronically signed by Tiara Alston DO> Cosigner Signature (if applicable): CC: Dr. Fredis Moon MD ~ Signed [facility] Work Phone: Evaluation noteNo assessment information available [facility] Work Phone: Evaluation note* Diagnosis Close exposure to COVID-19 virus- Primary [facility]* Diagnosis Close exposure to COVID-19 virus- Primary documented in this encounter [facility] note* Diagnosis Onset Date Resolution Status Carotid artery disease acute Premature atrial contractions acute Premature ventricular contraction acute Syncope acute Atherosclerotic heart diseas e of [place] coronary artery without angina pectoris chronic Essential hypertension chron ic Mixed hyperlipidemia [facility] Work Phone: Evaluation note* Diagnosis Onset Date Resolution Status Bilateral lower extremity edema acute Carotid artery disease acute Atherosclerotic heart diseas e of [place] coronary artery without angina pectoris chronic Essential hypertension chron ic Mixed hyperlipidemia [facility] Work Phone: Evaluation note* Diagnosis 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, unspecified whether [place] or transplanted heart (HCC)- Primary Type 2 diabetes mellitus with diabetic neuropathy, without long-term current use of insulin (HCC) CAD (coronary artery disease) Coronary atherosclerosis of unspecified type of vessel, [place] or graft documented in this encounter [facility] note* Diagnosis CAD in [place] artery- Primary Preoperative clearance Unspecified pre-operative examination 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 (CODE) CAD (coronary artery disease) Coronary atherosclerosis of unspecified type of vessel, [place] or graft documented in this encounter [facility] note* Diagnosis CAD in [place] artery- Primary Preoperative clearance Unspecified pre-operative examination 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 (CODE) CAD in [place] artery CAD (coronary artery disease) Coronary atherosclerosis of unspecified type of vessel, [place] or graft S/P CABG (coronary artery bypass graft) Postsurgical aortocoronary bypass status documented in this encounter [facility]* Diagnosis S/P CABG (coronary artery bypass graft)- Primary Postsurgical aortocoronary bypass status documented in this encounter [facility]* Diagnosis S/P CABG (coronary artery bypass graft)- Primary Postsurgical aortocoronary bypass status documented in this encounter [facility]* Diagnosis CAD in [place] artery S/P CABG (coronary artery bypass graft) Postsurgical aortocoronary bypass status [facility] Discharge instructionsAdditional Instructions Your workup today was largely normal. Please follow-up outpatient with Dr. Moon as scheduled next week. You continue to have intermittent episodes of dizziness/vertigo please also follow-up with Dr. Dey. If your symptoms progress or worsen please return to the emergency room.[facility] [facility] Work Phone: Reason for referral (narrative)No reason for referral information availableWUniversity [facility] Work Phone: Reason for visit Narrative* Auth/Cert (Routine) Specialty Diagnoses / Procedures Referred By Contac t Referred To Contact Diagnoses CAD (coronary artery disease) Procedures MS CABG W/ARTERIAL GRAFT THREE ARTERIAL GRAFTS MS ECHO TRANSESOPHAG R-T 2D W/PRB IMG ACQUISJ I&R CORONARY ARTERY BYPASS GRAFT ECHOCARDIOGRAM, TRANSESOPHAGEAL Velasco, Daysi Perry MD [address] [place] [address], [address] [place] [address] Phone: tel: fax: Referral ID Status Reason Start Date Expiration Date Visits Re quested Visits Authorized [id number] 04/25/2024 1 1 [facility] Chief Complaint and Reason for [...] ventricular contraction Syncope Atherosclerotic heart disease of [place] coronary artery without angina pectoris Essential hypertension Mixed hyperlipidemia Chief Complaint Obstructive sleep ap brigid (adult) (pediatric) Chief Complaint Obstructive sleep ap brigid (adult) (pediatric) FALL Chief Complaint FALL 1 Y FU E-ORDER Reason for Visit Bilateral lower extr emity edema Carotid artery disease Atherosclerotic heart disease of [place] coronary artery without angina pectoris Essential hypertension Mixed hyperlipidemia Chief Complaint 1 Y FU E-ORDER Reason for Visit Bilateral lower extr emity edema Carotid artery disease Atherosclerotic heart disease of [place] coronary artery without angina pectoris Essential hypertension [...] Admit Date Atherosclerotic heart diseas e of [place] coronary artery without angina pectoris March 23, 2024 1:16pm Carotid artery disease March 23 1:16pm Diabetes mellitus March 23, 2024 1 :16pm Diastolic dysfunction March 23, 2024 1:16pm Mixed hyperlipidemia March 23, 2024 1:16pm Parkinsonism March 23, 2024 1 :16pm Abnormal cardiovascular stress test 2024 8:24am Chest pain April 24, 2024 8:24 am Atherosclerotic heart diseas e of [place] coronary artery without angina pectoris April 24, [...] Admit Date Atherosclerotic heart diseas e of [place] coronary artery without angina pectoris March 23, 2024 1:16pm Carotid artery disease March 23 1:16pm Diabetes mellitus March 23, 2024 1 :16pm Diastolic dysfunction March 23, 2024 1:16pm Mixed hyperlipidemia March 23, 2024 1:16pm Parkinsonism March 23, 2024 1 :16pm Abnormal cardiovascular stress test Will 2024 8:24am Chest pain April 24, 2024 8:24 am Atherosclerotic heart diseas e of [place] coronary artery without angina pectoris April 24, [...] 2024 12:37pm Atherosclerotic heart diseas e of [place] coronary artery without angina pectoris July 06, [...] Admit Date Atherosclerotic heart diseas e of [place] coronary artery without angina pectoris March 23, 2024 1:16pm Carotid artery disease March 23 1:16pm Diabetes mellitus March 23, 2024 1 :16pm Diastolic dysfunction March 23, 2024 1:16pm Mixed hyperlipidemia March 23, 2024 1:16pm Parkinsonism March 23, 2024 1 :16pm Abnormal cardiovascular stress test Will 2024 8:24am Chest pain April 24, 2024 8:24 am Atherosclerotic heart diseas e of [place] coronary artery without angina pectoris April 24, [...] 9:56a m Atherosclerotic heart diseas e of [place] coronary artery without angina pectoris July 06, [...] 8:24 am Atherosclerotic heart diseas e of [place] coronary artery without angina pectoris April 24, [...] 9:56a m Atherosclerotic heart diseas e of [place] coronary artery without angina pectoris July 06, [...] 9:56a m Atherosclerotic heart diseas e of [place] coronary artery without angina pectoris July 06, [...] 9:56a m Atherosclerotic heart diseas e of [place] coronary artery without angina pectoris July 06, 2024 9:56am Carotid artery disease July 06, 2024 9: 56am Diastolic dysfunction July 06, 2024 9:5 6am Mixed hyperlipidemia July 06, 2024 9:56 am Anemia October 02, 2024 11 :28am Type 2 diabetes mellitus with hyperglyce monster October 02, 2024 11:28am Atherosclerotic heart diseas e of [place] coronary artery without angina pectoris October 02, [...] 9:56a m Atherosclerotic heart diseas e of [place] coronary artery without angina pectoris July 06, 2024 9:56am Carotid artery disease July 06, 2024 9: 56am Diastolic dysfunction July 06, 2024 9:5 6am Mixed hyperlipidemia July 06, 2024 9:56 am Anemia October 02, 2024 11 :28am Type 2 diabetes mellitus with hyperglyce monster October 02, 2024 11:28am Atherosclerotic heart diseas e of [place] coronary artery without angina pectoris October 02, [...] No January 08, 018 10:29am Power of Medical Transcription Supervisor No January 08, 2018 10:29am Advance Directive Response Recorded Date/ Time Advance Directives No January 12:22pm Living Will No January 08, 018 9:29am Power of Medical Transcription Supervisor No January 08, 2018 9:29am Advance Directive Response Recorded Date/ Time Name of Medical Power of Medical Transcription Supervisor LALA SERRANOEMIGDIOAKIL Verito December 30, 2022 9:00pm Advance Directives No January 12:22pm Living Will Yes December 30 9:00pm Power of Medical Transcription Supervisor Yes December 30, 2022 9:00pm Advance Directive Response Recorded Date/ Time Advance Directives No January 1:22pm Living Will Yes December 30 10:00pm Power of Medical Transcription Supervisor Yes December 30, 2022 10:00pm Documents on File Type Date Recorded Patient Textile Screen Printer Expl anation Advance Directives and Livin g Will 05/10/2024 6:30 AM Power of Medical Transcription Supervisor 05/10/2024 6:29 AM Date Activated Date Inactivated Comments 05/10/2024 6:16 AM 05/16/2024 2:22 PM Advance Directive Response Recorded Date/ Time Advance Directives on File No April 24, 2024 9:50am Living Will Yes April 24, 2024 9:50am Do you have a Healthcare Pow er of Medical Transcription Supervisor? Yes April 24, 2024 9:50am Name of Medical Power of Medical Transcription Supervisor Lala (SPOUSE) April 24, 2024 9:50am Advance Directives Yes April 24 9:50am Living Will Yes May 18, 2024 11:12am Do you have a Healthcare Pow er of Medical Transcription Supervisor? Yes May 18, 2024 11:12am Name of Medical Power of Medical Transcription Supervisor matilde Cooper May 18, 2024 11:12am Documents on File Type Date Recorded Patient Textile Screen Printer Expl anation Advance Directives and Livin g Will 05/10/2024 6:30 AM Power of Medical Transcription Supervisor 05/10/2024 6:29 AM Date Activated Date Inactivated Comments 05/10/2024 6:16 AM 05/16/2024 2:22 PM Advance Directive Response Recorded Date/ Time Advance Directives on File No April 24, 2024 9:50am Living Will Yes April 24, 2024 9:50am Do you have a Healthcare Pow er of Medical Transcription Supervisor? Yes April 24, 2024 9:50am Name of Medical Power of Medical Transcription Supervisor Lala (SPOUSE) April 24, 2024 9:50am Advance Directives Yes April 24 9:50am Advance Directives on File Yes June 222024 9:36am Living Will Yes July 04, 2024 9 :36am Do you have a Healthcare Pow er of Medical Transcription Supervisor? Yes July 04, 2024 9:36am Living Will Yes May 18, 2024 11:12am Do you have a Healthcare Pow er of Medical Transcription Supervisor? Yes May 18, 2024 11:12am Name of Medical Power of Medical Transcription Supervisor matilde Cooper May 18, 2024 11:12am Advance Directive Response Recorded Date/ Time Advance Directives on File Yes June 222024 9:36am Living Will Yes July 04, 2024 9 :36am Do you have a Healthcare Pow er of Medical Transcription Supervisor? Yes July 04, 2024 9:36am Living Will Yes May 18, 2024 11:12am Do you have a Healthcare Pow er of Medical Transcription Supervisor? Yes May 18, 2024 11:12am Name of Medical Power of Medical Transcription Supervisor matilde Cooper May 18, 2024 11:12am Do you have a Healthcare Pow er of Medical Transcription Supervisor? Yes September 08, 2024 10:34am Name of Medical Power of Medical Transcription Supervisor [place] September 08, 2024 10:34am Advance Directives Yes April 24 9:50am Advance Directive Response Recorded Date/ Time Advance Directives on File Yes June 222024 9:36am Living Will Yes July 04, 2024 9 :36am Do you have a Healthcare Power of Medical Transcription Supervisor? Yes July 04, 2024 9:36am Do you have a Healthcare Power of Medical Transcription Supervisor? Yes September 08, 2024 10:34am Name of Medical Power of Medical Transcription Supervisor [place] September 08, 2024 10:34am Advance Directives Yes [...] or prosecute any alcohol or drug abuse patient.[facility] the event this information is protected by the Federal Confidentiality of Alcohol and Drug Abuse Patient Records regulations: The Federal rules restrict any use of the information to criminally investigate or prosecute any alcohol or drug abuse patient.[facility] Reason for Visit (unrecogniz ed section and content) Reason Comments Covid19 Concern asymptomatic exposur e x1 day Reason Comments COVID exposure COVID exposure Reason Comments New Patient Specialty Diagnoses / Procedures Referred By Daria t Referred To Contact Cardiothoracic Surgery Diagnoses CABG Procedures NEW PATIENT Samson Elder MD [address] [place] [address] Phone: tel: fax: Daysi Velasco MD [address] [place] [address], [address] [place] [address] Phone: tel: fax: Referral ID Status Reason Start Date Expiration Date V isits Requested Visits Authorized [id number] Pending Review 04/25/2024 04/25/2025 1 1 Reason Onset Date Comments Surgery Scheduling 04/25/2024 Reason Comments Follow-up Reason Comments Post-op Reason Onset Date Comments Orders 06/23/2024 Reason Onset Date Comments [facility] Outreach 06/27/2024 Reason Onset Date Comments [facility] Outreach 07/24/2024 Care Teams (unrecognized sec tion and content) Academic Affairs Assistant Relationship Specialty Start Date End Date Fredis Moon Chi [address] [facility] [address] [place], [place] [phone] PCP - General Gerontology 05/23/21 Academic Affairs Assistant Relationship Specialty Start Date End Date Fredis Moon Chi [address] [facility] [address] [place], [place] [phone] PCP - General Gerontology 05/23/21 Team Status: [...] Care Provider, Referring Provider Active Mi Hernandez HOME HEALTH LPN, HOME HEALTH LPN-C Attending Provider Active Team Status: Inactive Member Role Status Dates Dr. Fredis Moon MD Primary Care Provider Active Mi Hernandez HOME HEALTH LPN, HOME HEALTH LPN-C Attending Provider, Referring P chapis Active Team Status: Active Member Role Status Dates Dr. Fredis Moon MD Primary Care Provi shania, Attending Provider, Referring Provider Active Academic Affairs Assistant Relationship Specialty Start Date End Date Kelsey Moon MD [address] [place] [phone] PCP - General Geriatric Medicine 05/10/24 Chante Hong, VITOR Registered Nurse Preschool Principal Manager 05/11/24 Team Status: Active Member Role [...] Active Member Role Status Dates Dr. Fredis oMon MD Primary Care Provider Active Start: April [...] Provider Active S tart: May 18, 2024 Academic Affairs Assistant Relationship Specialty [place] [address] [place] [phone] PCP - General Geriatric Medicine 05/10/24 Chante Hong, VITOR Registered Nurse Preschool Principal Manager 05/11/24 Team Status: Active Member Role [...] Provider Active S tart: June 02, 2024 Academic Affairs Assistant Relationship Specialty Start Date End Date Kelsey Moon MD [address] [place] [phone] PCP - General Geriatric Medicine 05/10/24 Chante Hong, RN Registered Nurse Preschool Principal Manager 05/11/24 Lilliana Reed I., SYSTEMS TRAINER Bottle Dealer Licensed Clinical Bottle Dealer 06/08/24 Academic Affairs Assistant Relationship Specialty Start Date End Date Kelsey Moon MD [address] [place] [phone] PCP - General Geriatric Medicine 05/10/24 Chante Hong, RN Registered Nurse Preschool Principal Manager 05/11/24 Lilliana Reed I., SYSTEMS TRAINER Bottle Dealer Licensed Clinical Bottle Dealer 06/08/24 Team Status: Inactive Member Role Status [...] 2024 End: July 06, 2024 Mi Hernandez HOME HEALTH LPN, HOME HEALTH LPN-C Attending Provider Active Start: July 06, 2024 End: July 06, 2024 Team Status: Active Member Role Status Dates Dr. Fredis Moon MD Primary Care Provider Active Start: July 06, 2024 Dr. Samson Elder MD Attending Provider Active Start: July 06, 2024 Dr. Samson Elder MD Referring Provider Active Start: July 06, 2024 Mi Hernandez HOME HEALTH LPN, HOME HEALTH LPN-C Other Provider Active Sta rt: July 06, 2024 Academic Affairs Assistant Relationship Specialty [place] [address] [place] [phone] PCP - General Geriatric Medicine 05/10/24 Chante Hong, VITOR Registered Nurse Preschool Principal Manager 05/11/24 Lilliana Reed I. [facility] Bottle Dealer Licensed Clinical Bottle Dealer 06/08/24 Team Status: Inactive Member Role Status [...] 2024 End: July 06, 2024 Mi Hernandez HOME HEALTH LPN, HOME HEALTH LPN-C Other Provider Active Sta rt: July 06, [...] July 21, 2024 End: July 22, 2024 Academic Affairs Assistant Relationship Specialty Start Date End Date Kelsey Moon MD [address] [facility] [address] [place] [phone] PCP - General Geriatric Medicine 05/10/24 Chante Hong RN Registered Nurse Preschool Principal Manager 05/11/24 Lilliana Reed I., SYSTEMS TRAINER Bottle Dealer Licensed Clinical Bottle Dealer 06/08/24 Academic Affairs Assistant Relationship Specialty Start Date End Date Kelsey Moon MD [address] [facility] [address] [place] [phone] PCP - General Geriatric Medicine 05/10/24 Chante Hong RN Registered Nurse Preschool Principal Manager 05/11/24 Lilliana Reed I., SYSTEMS TRAINER Bottle Dealer Licensed Clinical Bottle Dealer 06/08/24 08/11/24 Team Status: Active Member Role/Relationship [...] 2024 End: July 06, 2024 Mi Hernandez HOME HEALTH LPN, HOME HEALTH LPN-C Attending Provider Active Start: July 06, 2024 [...] End: July 06, 2024 Mi Hernandez NP, HOME HEALTH LPN-C Other Provider Active Sta rt: July 06, [...] End: July 06, 2024 Mi Hernandez NP, HOME HEALTH LPN-C Attending Provider Active Start: July 06, 2024 [...] End: July 06, 2024 Mi Hernandez NP, HOME HEALTH LPN-C Other Provider Active Sta rt: July 06, [...] 2024 End: July 06, 2024 Mi Hernandez HOME HEALTH LPN, HOME HEALTH LPN-C Attending Provider Active Start: July 06, 2024 [...] End: July 06, 2024 Mi Hernandez NP, HOME HEALTH LPN-C Other Provider Active Sta rt: July 06, [...] 2024 End: July 06, 2024 Mi Hernandez HOME HEALTH LPN, HOME HEALTH LPN-C Attending Provider Active Start: July 06, 2024 [...] 2024 End: July 06, 2024 Mi Hernandez HOME HEALTH LPN, HOME HEALTH LPN-C Other Provider Active Sta rt: July 06, [...] 2024 End: October 02, 2024 Wagner Regalado HOME HEALTH LPN, HOME HEALTH LPN-C Attending Provider Active S tart: October 02, 2024 End: October 02, 2024 Team Status: Inactive Member Role/Relationship Status Dates Dr. Fredis Moon MD Primary Care Provider Active Start: October 02, 2024 End: October 02, 2024 Dr. Fredis Moon MD Referring Provider Active Start: October 02, 2024 End: October 02, 2024 Wagner Regalado HOME HEALTH LPN, HOME HEALTH LPN-C Attending Provider Active S tart: October 02, [...] End: July 06, 2024 Mi Hernandez NP, HOME HEALTH LPN-C Attending Provider Active Start: July 06, 2024 [...] End: July 06, 2024 Mi Hernandez NP, HOME HEALTH LPN-C Other Provider Active Sta rt: July 06, [...] 2024 End: October 02, 2024 Wagner Regalado HOME HEALTH LPN, HOME HEALTH LPN-C Attending Provider Active S tart: October 02, [...] section and content) DATE CREATED AUTHOR 05/31/2021 [facility] DATE CREATED AUTHOR AUTHOR'S ORGANIZ ATION 08/14/2024 [facility] DATE CREATED AUTHOR AUTHOR'S ORGANIZ ATION 10/11/2024 [facility] DATE CREATED AUTHOR AUTHOR'S ORGANIZ ATION 12/31/2024 [facility] Scheduled Active and Recently Administ ered Medications (unrecognized section and content) Medication Order 05/14/2024 05/15/2024 05/16/2024 acetaminophen (Tylenol) tablet 1,000 mg 1,000 mg, Oral, Every 8 hours, First dose on Wed05/10/24 at 1400, [facility] 0516 (Given - Provider: Jos Haas RN)1412 (Given - Provider: Birdie Kang RN)2110 (Given - Provider: Jos Haas RN) 0557 (Given - Provider: Cedric Knag RN)1451 (Given - Provider: Clara Romero, VITOR)2101 (Given - Provider: Rahda Farley, VITOR) 0603 (Given - Provider: Radha [...] sedation for opioid reversal - MUST notify supervisor mold construction provider immediately after first dose, may give [...] BE BASED ON THE PRIMARY CLINICAL RECORDS. [employer] provides no warranty or guarantee of the accuracy or completeness of information in this document.
== END | disposition home or self-care (01) ==
LOC: RAD 17:21
PROVIDERS: PCP Family Medicine Geriatric Medicine; Visit Provider Family Medicine Geriatric Medicine
DX: L03.116 Cellulitis of left lower limb (principal); M79.672 Pain in left foot
CPT/HCPCS: 73564; 73610; 73630

== ENCOUNTER → 2025-01-01 | Outpatient (CLI) | payer MEDICARE, SELFPAY ==
[2024-09-29 08:14] VITALS: BMI 33.5
[2025-01-01 18:09] LABS: Hematocrit 40.6 % (40-54); Hemoglobin 13.2 g/dL (13.0-16.5); Immature Granulocytes Count 0.110 X10^3/uL (0.0-0.0); Mean Corp Hgb Conc 32.5 g/dL (32-36); Mean Corpuscular Volume 86.0 fL (80-94); Mean Platelet Vol. 10.6 fl (6.2-12.0); NRBC Flagged by Analyzer 0 % (0-5); Platelet Count 200 K/mm3 (150-450); RBC Distribution Width CV 15.4 % (11.6-14.6); RBC Distribution Width SD 48.4 fl (35.1-43.9); Red Blood Count 4.72 M/mm3 (4.6-6.2); White Blood Count 10.1 K/mm3 (4.4-11.0)
[2025-01-01 18:15] LABS: CRP 11.50 mg/L (0.0-3.0)
[2025-01-01 18:15] LABS: Anion Gap 11 (5-15); BUN 28 mg/dL (4-19); BUN/Creat Ratio 29.8 RATIO (10-20); Calcium,Total 9.0 mg/dL (7.6-11.0); Carbon Dioxide 25.3 mmol/L (21.0-32.0); Chloride 104 mmol/L (98-108); Glucose 155 mg/dL (70-99); Potassium 4.6 mmol/L (3.3-5.1); Uric Acid 5.5 mg/dL (3.5-7.2)
[2025-01-01 18:16] LABS: Cholesterol 96 mg/dL (<=200); Low Density Lipoprotein Calc. 13 mg/dL; Triglycerides 297 mg/dL; Very Low Density Lipoprotein 59 mg/dL (5-40); cholesterol:hdl ratio screen 2.38
[2025-01-01 18:18] LABS: AST(SGOT) 16 U/L (<=37); Alanine Aminotransfer ALT/SGPT < 5 U/L (<=46); Albumin, Serum 3.7 g/dL (3.4-4.8); Alkaline Phosphatase 105 U/L (40-129); Bilirubin, Direct 0.16 mg/dL (0.00-0.30); Globulin 2.3 g/dL (2.2-4.2)
--- OUTSIDE RECORDS SUMMARY | 2025-01-01 19:29 | XMS RPT_ITS | CCD ---
Author Organization [facility] Care Team Providers Care Telephone Quotation Clerk Name Role Phone Sabiha ADLER, Charity Perry Unavailable Unavailable StevenRosa ramos Unavailable Hailey Huerta Unavailable Unavailable Hailey Huerta Unavailable Unavailable Steven, Rosa L Unavailable Fredis Moon Chi Primary Care Provider 1([facility])[phone] Red, Dr. Fredis Schaefer Primary Care Provider 1([facility])[phone] Red, Dr. Fredis Schaefer Referring Provider 1([facility])[phone] Josias Truk Attending Provider 1([facility])[phone] Red, Dr. Fredis Schaefer Primary Care Provider 1([facility])[phone] Dr. Krish Nagel Attending Provider 1([facility])[phone] Red, Dr. Fredis Schaefer Primary Care Provider 1([facility])[phone] Dr. Krish Nagel Attending Provider 1([facility])[phone] Red, Dr. Fredis Schaefer Primary Care Provider 1([facility])[phone] Red, Dr. Fredis Schaefer Referring Provider 1([facility])[phone] David VERTICAL BORER, VERTICAL BORER-C Mi Attending Provider Red, Dr. Fredis Schaefer Primary Care Provider Red, Dr. Fredis Schaefer Referring Provider 1([facility])[phone] David VERTICAL BORER, VERTICAL BORER-C Mi Attending Provider Unavailable Primary Care Provider Unavailbianka Moon MD, Kelsey Primary Care Provider Chante Hong RN Unavailable Unavailable Red SCHMITT, Dr. Fredis Schaefer Primary Care Provider 1([facility] )[phone] Red SCHMITT, Dr. Fredis Schaefer Attending Provider 1([facility])[phone] Red SCHMITT, Dr. Fredis Schaefer Referring Provider Esteban SCHMITT, Dr. Davies Attending Provider Esteban SCHMITT, Dr. Davies Referring Provider Kriss SCHMITT, Dr. Klein Attending Provider Esteban SCHMITT, Dr. Davise Other Provider Anna Marie NOVA, Raven Griffith Attending Provider Red SCHMITT, Dr. Fredis Schaefer Admit Provider Red SCHMITT, Kelsey Primary Care Provider [phone] Chante Hong RN Unavailable Unavailable Lilliana Romeo I. Unavailable [phone] Red SCHMITT, Dr. Fredis Schaefer Primary Care Provider [phone] Red SCHMITT, Dr. Fredis Schaefer Attending Provider Krista SCHMITT, Dr. Klein Attending Provider Krista SCHMITT, Dr. Klein Referring Provider Mi Styles Attending Provider David HINTON-Mi Esqueda Other Provider Red SCHMITT, Dr. Fredis Schaefer Primary Care Provider [phone] Esteban SCHMITT, Dr. Davies Attending Provider Red SCHMITT, Dr. Fredis Schaefer Referring Provider Chante Hong RN Unavailable Unavailable Lilliana Romeo I. Unavailable VELASCO, DAYSI Attending Unavailable SAMSON ELDER Referring [...] Dr. Fredis Schaefer Primary Care Provider [phone] Esteban SCHMITT, Dr. Davies Attending Provider Esteban CSHMITT, Dr. Davies Referring Provider Kriss SCHMITT, Dr. Klein Attending Provider [phone] Red SCHMITT, Dr. Fredis Schaefer Primary Care Provider [phone] Esteban SCHMITT, Dr. Davies Attending Provider Esteban SCHMITT, Dr. Davies Referring Provider Dr. Tiara Alston DO Emergency Provider [phone] Kriss SCHMITT, Dr. Klein Attending Provider [phone] Tiara Alston DO Attending Provider [phone] Wagner Traore Attending Provider Barron Olson Attending Unavailable Red SCHMITT, Dr. Fredis Schaefer Primary Care Provider Red SCHMITT, Dr. Fredis Schaefer Referring Provider [phone] Red SCHMITT, Dr. Fredis Schaefer Attending Provider [phone] Wesley DPM, Dr. Mart Attending Provider Wesley DPM, Dr. Mart Referring Provider Red, Fredis Chi Primary Care Unavailable Red, Fredis Chi Referring Unavailable Red, Fredis Chi Attending Unavailable Red, Fredis Chi Primary Care Unavailable Red, Fredis Chi Attending Unavailable Red, Fredis Chi Primary Care Unavailable Red, Fredis Chi Attending Unavailable KeYovanny Referring Unavailable Red, Fredis Chi Primary Care Unavailable KeYovanny Attending Unavailable Red, Fredis Chi Primary Care Unavailable Red, Fredis Chi Attending Unavailable Red, Fredis Chi Attending Unavailable Red, Fredis Chi Primary Care Unavailable Red, Fredis Chi Referring Unavailable Esteban, Samson Referring Unavailable Esteban, Samson Attending Unavailable Red, Fredis Chi Primary Care Unavailable Mi Hernandez NP Consulting Unavailable Red, Fredis Chi Primary Care Unavailable Tiara Alston Attending Unavailable Red, Fredis Chi Primary Care Unavailable Red, Fredis Chi Attending Unavailable Red, Fredis Chi Referring Unavailable Esteban, Samson Referring Unavailable Esteban, Samson Attending Unavailable Red, Fredis Chi Primary Care Unavailable Red, Fredis Chi Primary Care Unavailable Red, Fredis Chi Attending Unavailable Barron Olosn Attending Unavailable Barron Olson Referring Unavailable Red, Fredis Chi Primary Care Unavailable Barron Olson Attending Unavailable Red, Fredis Chi Primary Care Unavailable Red, Fredis Chi Referring Unavailable Red, Fredis Chi Attending Unavailable Red, Fredis Chi Primary Care Unavailable Red, Fredis Chi Referring Unavailable Red, Fredis Chi Attending Unavailable Velasco, Daysi Referring Unavailable Velasco, Daysi Attending Unavailable Red, Fredis Chi Primary Care Unavailable Esteban, Samson Attending Unavailable Esteban, Samson Referring Unavailable Red, Fredis Chi Primary Care Unavailable Velasco, Daysi Referring Unavailable Red, Fredis Chi Primary Care Unavailable Velasco, Daysi Attending Unavailable Red, Fredis Chi Primary Care Unavailable Red, Fredis Chi Attending Unavailable Red, Fredis Chi Attending Unavailable Red, Fredis Chi Primary Care Unavailable Red, Fredis Chi Referring Unavailable Red, Fredis Chi Admitting Unavailable Red, Fredis Chi Primary Care Unavailable Red, Fredis Chi Referring Unavailable Red, Fredis Chi Attending Unavailable Red, Fredis Chi Primary Care Unavailable Red, Fredis Chi Referring Unavailable Red, Fredis Chi Attending Unavailable Esteban, Samson Attending Unavailable Esteban, Samson Consulting Unavailable Esteban, Samson Referring Unavailable Red, Fredis Chi Primary Care Unavailable Red, Fredis Chi Attending Unavailable Red, Fredis Chi Primary Care Unavailable Red, Fredis Chi Referring Unavailable Esteban, Samson Consulting Unavailable Esteban, Samson Referring Unavailable Anna Marie NOVA, Raven Griffith Attending Unavail able Red, Fredis Chi Primary Care Unavailable Wagner Regalado NP Attending Unavailable Red, Fredis Chi Primary Care Unavailable Red, Fredis Chi Referring Unavailable Mi Hernandez NP Attending Unavailable Red, Fredis Chi Primary Care Unavailable Red, Fredis Chi Referring Unavailable Esteban, Samson Attending Unavailable Red, Fredis Chi Primary Care Unavailable Red, Fredis Chi Referring Unavailable Fabricio VERTICAL BORERWagner Attending Unavailable Red, Fredis Chi Primary Care Unavailable Red, Fredis Chi Referring Unavailable Kriss, Daysi Attending Unavailable Red, Fredis Chi Primary Care Unavailable Red, Fredis Chi Referring Unavailable Kriss, Daysi Attending Unavailable Esteban, Samson Referring Unavailable Red, Fredis Chi Primary Care Unavailable Esteban, Samson Attending Unavailable Red, Fredis Chi Primary Care Unavailable Kriss, Daysi Attending Unavailable Red, Fredis Chi Primary Care Unavailable Red, Fredis Chi Referring Unavailable Esteban, Samson Attending Unavailable Red, [...] Red, Fredis Chi Primary Care Unavailable Roof VERTICAL BORER, Wagner H Referring Unavailable Red, Fredis Chi Primary Care Unavailable Roof VERTICAL BORER, Wagner H Attending Unavailable Velasco, Daysi Referring Unavailable Velasco, Daysi Attending Unavailable Red, Fredis Chi Primary Care Unavailable Allergies Allergy Classification Reported Allergen(s) Allergy Type Date of Onset Reaction(s) Facility (5 sources) Hmg-Coa Reductase Inhibitors (Statins) drug allergy flu like symptoms [email or web address] Work Phone: (5 sources) rosuvastatin Drug Allergy 5 flu like symptoms [facility] Work Phone: (20 sources) Adhesive Tape; Translations: [adhesive tape] Propensity to adverse reactions 1 skin tears [facility] (20 sources) rosuvastatin Drug Allergy 5 Flu like symptoms [facility] (2 sources) Adhesive Tape-Silicones Drug Allergy 2 Rash [facility] (13 sources) Adhesive Tape Drug Allergy 9 [facility] (1 source) rosuvastatin Drug Allergy 5 [facility] Repository Medications Current Medications Medication Drug [...] Start: 12-18-2016 take 1 tablet by tres th once daily ASPIRIN EC 81 MG TBEC One tablet by mouth daily ASPIRIN [id number] Charity Landis RN Start: 12-18-2016 End: 05-16-2024 take 1 tablet by mouth once daily ASPIRIN EC 81 MG TBEC One tablet by mouth daily ASPIRIN [id number] Charity Landis RN Start: 10-06-2012 End: 11-21-2014 take 1 tablet by mouth once daily ASPIRIN 81 MG TABS One tablet by mouth daily ASPIRIN [id number] Josias Turk MD Start: 04-03-2009 aspirin(ECOTRI N LOW STRENGTH 81 MG TAB) Take one(1) tablet three times per week 0 04/03/2009 Active ASPIRIN 81 MG TA BS ASPIRIN [id number] Luis Escamilla DO Comment on above: Take [...] One tablet by mouth daily ATORVASTATIN CALCIUM [id number] Josias Turk MD End: 05-16-2024 Calcium Carb-Vitamin D3-Vit K2 (20 sources) Start: 12-20-2017 take 1 tablet by mouth once daily Calcium Carb-Vitamin D3-Vit K2 Active 1 TABLET PO DAILY December 20, 2017 1:41pm Start: 12-20-2017 take 1 tablet by tres once daily Calcium Carb-Vitamin D3-Vit K2 Active 1 TABLET PO DAILY December 20, 2017 12:41pm Start: 12-20-2017 take 2 tablets by mo ut once daily Calcium Carb-Vitamin D3-Vit K2 Active 2 TABLET PO DAILY December 20, 2017 12:41pm Start: 12-20-2017 take 2 tablets by mo ut once daily Calcium Carb-Vitamin D3-Vit K2 Active [...] Active meclizine hydrochloride 12.5 mg oral tablet (9 sources) Antiemetic Start: 09-08-2024 take 1 tablet [...] Start: 10-06-2012 take 2 tablets by mo ut twice daily METFORMIN HCL 500 MG TABS Two tablets by mouth twice daily METFORMIN HCL [id number] Josias Turk MD Start: 10-06-2012 take 2 tablets by mo ut once daily METFORMIN HCL 500 MG TABS Two tablets by mouth daily METFORMIN HCL [id number] Josias Turk MD Start: 02-15-2012 take 2 tablets by mo ut every hour metFORMIN ER 500 mg 24 hr tablet Take by mouth two tablets every moning 60 tablet 11 02/15/2012 Active Start: 05-12-2011 METFORMIN HCL 500 MG TABS METFORMIN HCL [id number] Luis Escamilla DO Comment on above: Take [...] 10/17/2009 Active take 1 tablet by tres once daily metoprolol succinate XL (Toprol-XL) 25 MG 24 hr tablet Take 12.5 mg by mouth daily. Do not crush or chew. Active METOPROLOL SUCCI HUNTER ER 25 MG [id number] METOPROLOL SUCCINATE [id number] Luis Escamilla DO Comment on above: Take [...] take 1 tablet by tres once daily MYRBETRIQ 50 MG [id number] One tablet by mouth daily MIRABEGRON [id number] Josias Turk MD Propylene glycol (8 sources) Propylene Glycol (LUBRICANT EYE DROP OP) Administer into affected eye(s) as needed. Both eyes Active Propylene Glycol (Lubricant Eye (Propyl Glycol)) 0.6 % drops (6 sources) Start: 10-02-2024 take 0.6 drop(s) into the [...] PE N One injection once weekly. ALBIGLUTIDE [id number] Alexandra Baum NP 20 ml albumin human, retirement 250 mg/ml injection (4 sources) Human Serum Albumin Start: 05-11-19 End: 05-12-19 albuterol 0.833 mg/ml / ipratropium bromide 0.167 mg/ml inhalation solution (2 sources) Anticholinergic, beta2-Adrenergic Agonist Start: 05-11-19 End: 05-17-19 amLODIPine 5 mg oral tablet (20 sources) Dihydropyridine Calcium Channel Soni Start: 04-25-19 End: 06-07-19 take 1 tablet by mouth once daily Amlodipine 5 mg tablet Discontinued 5 mg PO daily 30 April 24, 2024 1:00am June 06, 2024 7:16pm calcium (2 sources) Phosphate Binder, Calcium Start: 10-07-19 take 1 tablet by mouth once daily CALCIUM 500/VITAMIN D TABS One tablet by mouth daily CALCIUM CARBONATE-VITAMIN D TABS [id number] Josias Turk MD CALCIUM 500/KATIE MIN D TABS CALCIUM CARBONATE-VITAMIN D TABS [id number] Luis Matilde Escamilla DO Calcium 600 + Vit D [...] by mouth daily CALCIUM CARBONATE-VITAMIN D TABS [id number] Josias Turk MD Start: 04-08-2010 take 1 tablet by tres th once daily calcium carbonate 600 mg-cholecalciferol 200 units (CALCIUM 600 + D,3,) 600 mg(1,500mg) -200 unit ORAL Tab Take one(1) tablet daily. 0 04/08/2010 Active CALCIUM 500/KATIE MIN D TABS CALCIUM CARBONATE-VITAMIN D TABS 56161860112 Luis Escamilla DO Comment on above: Take [...] Parkinsons Start: 01-12-2020 take 1 tablet by tres th three times daily Carbidopa-Levodopa Active 1 TABLET [...] One tablet by mouth daily CHROMIUM TABS [id number] Josias Turk MD Start: 05-15-2013 take 1 tablet by tres th once daily CHROMIUM GTF TABS One tablet by mouth daily CHROMIUM TABS [id number] Josias Turk MD Start: 05-15-2013 take 1 tablet by tres once daily CHROMIUM GTF TABS One tablet by mouth daily CHROMIUM TABS [id number] Josias Turk MD Start: 05-15-2013 End: 11-21-2014 take 1 tablet by mouth once daily CHROMIUM GTF TABS One tablet by mouth daily CHROMIUM TABS [id number] Josias Turk MD cinnamon bark 500 mg [...] Start: 12-21-2016 take 2 tablets by mo [facility] once daily CINNAMON 500 MG CAPS Two tablets by mouth daily CINNAMON [id number] Josias Turk MD Start: 05-15-2013 End: 11-21-2014 take 1 tablet by mouth twice daily CINNAMON 500 MG CAPS One tablet by mouth twice daily CINNAMON [id number] Josias Turk MD ciprofloxacin 500 mg oral [...] 1:43pm docusate sodium 50 mg / sennosides, retirement 8.6 mg oral tablet (2 sources) Start: [...] CAPS One tablet by mouth daily DUTASTERIDE [id number] Josias Turk MD EPINEPHrine 5mg in 0.9% sodium chloride 250 mL infusion (weight-based) (2 sources) Start: 05-10-2024 End: 05-11-2024 EXENATIDE SOLN (20 sources) GLP-1 Receptor Agonist Start: 05-15-2013 take 10 ug by subcutaneous injection twice daily BYETTA 10 MCG PEN SOPN SQ twice daily EXENATIDE SOLN [id number] Josias Turk MD Start: 05-15-2013 inject 10 ug by subc utaneous injection twice daily BYETTA 10 MCG PEN SOPN SQ twice daily EXENATIDE SOLN [id number] Josias Turk MD Start: 05-15-2013 End: 12-21-2016 inject 10 ug by subcutaneous injection twice daily BYETTA 10 MCG PEN SOPN SQ twice daily EXENATIDE SOLN [id number] Josias Turk MD Start: 05-15-2013 inject 10 ug by subc utaneous injection twice daily BYETTA 10 MCG PEN SOPN SQ twice daily EXENATIDE SOLN [id number] Josias Turk MD Start: 10-06-2012 BYETTA 10 MCG PEN SOPN as directed EXENATIDE SOLN [id number] Josias Turk MD Start: 10-06-2012 End: 05-15-2013 BYETTA 10 MCG PEN SOPN as directed EXENATIDE SOLN [id number] Josias Turk MD Start: 10-06-2012 BYETTA 10 MCG PEN SOPN as directed EXENATIDE SOLN [id number] Josias Turk MD Start: 10-06-2012 End: 05-15-2013 BYETTA 10 MCG PEN SOPN as directed EXENATIDE SOLN [id number] Josias Turk MD Start: 10-06-2012 BYETTA 10 MCG PEN SOPN as directed EXENATIDE SOLN [id number] Josias Turk MD Start: 10-06-2012 End: 05-15-2013 BYETTA 10 MCG PEN SOPN as directed EXENATIDE SOLN [id number] Josias Turk MD Start: 10-28-2011 exenatide (BYE TTA) 10 mcg/0.04 mL PnIj Inject twice daily before meals 1 Pen 11 10/28/2011 Active End: 10-06-2012 BYETTA 10 MCG PEN SOPN 10/06 EXENATIDE SOLN [id number] Josias Turk MD End: 10-06-2012 BYETTA 10 MCG PEN SOPN 10/06 EXENATIDE SOLN [id number] Josias Turk MD BYETTA 10 MCG PE N SOPN EXENATIDE SOLN [id number] Luis Steelemudez DO BYETTA 10 MCG PE N SOPN EXENATIDE SOLN [id number] Luis Escamilla DO End: 10-06-2012 BYETTA 10 MCG PEN SOPN 10/06 EXENATIDE SOLN [id number] Josias Turk MD Comment on above: Inject [...] 1 tablet by tres th once daily FAMOTIDINE 40 MG TABS One tablet by mouth daily FAMOTIDINE [id number] Josias Turk MD finasteride 5 mg oral [...] TABS One tablet by mouth daily FINASTERIDE [id number] Raven Thrasher PA-C fluticasone propionate 0.05 mg/actuat metered dose nasal spray (10 sources) Corticosteroid End: 05-15-2013 FLUTICASONE PROPIONATE 50 MCG/ACT SUSP once daily FLUTICASONE PROPIONATE [id number] Deni Lu furosemide 40 mg oral tablet (20 sources) [...] End: 10-06-2012 GABAPENTIN TABS G ABAPENTIN TABS [id number] Josias Turk MD GABAPENTIN TABS GABAPENTIN TABS [id number] Luis Escamilla DO End: 10-06-2012 GABAPENTIN TABS G ABAPENTIN TABS [id number] Josias Turk MD Comment on above: Takes 1-2 daily glimepiride 4 mg oral tablet (20 sources) Sulfonylurea Start: 10-06-2012 End: 12-21-2016 take 1 tablet by mouth twice daily GLIMEPIRIDE 2 MG TABS One tablet by mouth twice daily GLIMEPIRIDE [id number] Josias Turk MD Start: 02-15-2012 take 0.5 tablet by m out once daily glimepiride 4 mg tablet Take by mouth 1/2 tab daily 15 tablet 11 02/15/2012 Active GLIMEPIRIDE 4 MG TABS GLIMEPIRIDE [id number] Luis Escamilla DO Comment on above: Take by mouth 1/2 ta b daily glucagon (rdna) 1 mg injecti on (2 sources) Antihypoglycemic Agent Start: 05-10-2024 End: 05-16-2024 50 ml glucose 50 mg/ml injec tion (4 sources) Start: 05-10-2024 End: 05-16-2024 Start: 05-10-2024 End: 05-16-2024 GLUCOSE BLOOD (2 sources) End: 10-06-2012 ACCU-CHEK CLARITZA STRP GLUCOSE BLOOD [id number] Josias Turk MD ACCU-CHEK CLARITZA STRP GLUCOSE BLOOD [id number] Luis Escamilla DO GLUCOSE BLOOD (8 sources) ACCU-CHEK CLARITZA STRP GLUCOSE BLOOD [id number] Luis Escamilla DO End: 10-06-2012 ACCU-CHEK CLARITZA STRP GLUCOSE BLOOD [id number] Josias Turk MD glycerin 2 mg/ml / hypromellose 2 mg/ml / polyethylene glycol 400 10 mg/ml ophthalmic solution (17 sources) Non-Standardized Chemical Allergen Start: 05-16-2024 End: 06-06-2024 Peg 753-Wpxhxhprmhvu-Pltdbtmo (Artificial Tears(Xh-Jjgc-Gqrr)) 1-0.2-0.2 % drops Discontinued 1 NMA EACH EYE THREE TIMES A DAY as needed for dry eyes May 16, 2024 12:00am June 06, 2024 7:17pm 0.5 ml heparin sodium, porcine 15691 unt/ml prefilled syringe (2 sources) Unfractionated Heparin, Anti-coagulant Start: 05-11-2024 End: 05-16-2024 hydroCHLOROthiazide 12.5 mg oral capsule (12 sources) Thiazide Diuretic Start: 06-01-2011 take 1 capsule by mouth once daily Hydrochlorothiazide 12.5 mg ORAL capsule Take 1 capsule by mouth once daily. 90 capsule 4 06/01/2011 Active End: 10-06-2012 HYDROCHLOROTHIAZIDE 12.5 MG TABS HYDROCHLOROTHIAZIDE [id number] Luis Escamilla DO Comment on above: Take 1 capsule by [facility] once daily. insulin glargine 100 unt/ml [...] LANTUS SOLN as directed INSULIN GLARGINE SOLN [id number] Josias Turk MD Start: 10-06-2012 End: 12-21-2016 LANTUS SOLLandon as directed INSULIN GLARGINE SOLN [id number] Josias Turk MD Start: 10-06-2012 LANTUS SOLN as directed INSULIN GLARGINE SOLN [id number] Josias Turk MD Start: 05-15-2011 insulin glargi ne (LANTUS SOLOSTAR) 100 unit/mL (3 mL) SUBCUTANEOUS InPn Inject subcutaneously. 40 units at bedtime (may be more, as directed) 15 mL 11 05/15/2011 Active inject 45 [IU] by garzon bcutaneous injection once daily in the morning insulin glargine (Lantus) 100 UNIT/ML injection Inject 45 Units under the skin every morning. Active LANTUS SOLN INSU MARTIN GLARGINE SOLN [id number] Luis Escamilla DO Comment on above: Inject [...] 5/16 Ndle Use as directed. 100 Each 11 02/15/2012 Active Comment on above: Use as directed. INSULIN PEN NEEDLE (2 sources) End: 10-06-2012 EASY TOUCH PEN NEEDLES 29G X 12MM INSULIN PEN NEEDLE [id number] Josias Turk MD EASY TOUCH PEN N EEDLES 29G X 12MM INSULIN PEN NEEDLE [id number] Luis Escamilla DO 100 ml insulin, regular, human 1 unt/ml injection (2 sources) Insulin Start: 05-10-2024 End: 05-11-2024 isopropyl alcohol 0.7 ml/ml medicated pad (2 sources) Start: 10-28-2011 Alcohol Swabs PadM use as directed 100 Each 11 10/28/2011 Active Comment on above: use as [...] on above: Take 1 tablet by tres th once daily. magnesium hydroxide 80 mg/ml oral suspension (2 sources) Start: 05-13-2024 End: 05-15-2024 melatonin 3 mg oral tablet (20 sources) Start: 06-06-2024 End: 10-02-2024 take 1 [...] 1:00am December 20, 2017 8:48am Metoprolol(XL)Succ tablet (17 sources) Start: 02-13-2013 End: 12-20-2017 take 1 [...] 2 % CREA as directed MICONAZOLE NITRATE [id number] Josias Turk MD Start: 03-01-2012 End: 10-06-2012 MICONAZOLE 7 2 % CREA once d aily in AM to genital area MICONAZOLE NITRATE [id number] Josias Turk MD Start: 03-01-2012 MICONAZOLE 7 2 % CREA once daily in AM to genital area MICONAZOLE NITRATE [id number] Deni Lu Start: 03-01-2012 End: 10-06-2012 MICONAZOLE 7 2 % CREA once d aily in AM to genital area MICONAZOLE NITRATE [id number] Deni Lu Miconazole Nitra te 2 % [...] MULTIVITAMINS TABS One tablet by mouth daily JEANETTE VITAMIN Josias Turk MD Start: 11-06-2013 End: [...] One-half tablet by mouth twice daily NIACIN [id number] Josias Turk MD take 1 tablet by tres th twice daily at mealtime niacin sustained release 500 mg tablet Indications: Type II or unspecified type diabetes mellitus without mention of complication, uncontrolled Take 500 mg by mouth twice daily with meals. 0 Active NIACIN 500 MG TA NIACIN [id number] Luis Escamilla DO Comment on above: Take 500 mg by mouth twice daily with meals. norepinephrine (Levophed) 16 mg in 0.9% sodium chloride 250 mL infusion (weight based) (premix) (2 sources) Start: 05-10-2024 End: 05-12-2024 [place] 1-Nnf-Cnp-Fish Oil (Fish Oil) 60-90-500 mg capsule (20 sources) Start: 01-21-2022 End: 12-30-2022 [place] 7-Npw-Qto-Fish Oil (Fish Oil) 60-90-500 mg capsule Discontinued 1 NMA PO DAILY January 21, 2022 1:00am December 30, 2022 10:41pm Start: 01-21-2022 End: 12-30-2022 take 1 capsule by mouth once daily [place] 4-Uqx-Rng-Fish Oil (Fish Oil) 60-90-500 mg capsule Discontinued 1 CAP PO DAILY January 21, 2022 1:00am December 30, 2022 10:41pm Start: 01-21-2022 End: 12-30-2022 take 1 capsule by mouth once daily [place] 0-Kqt-Lag-Fish Oil (Fish Oil) 60-90-500 mg capsule Discontinued 1 CAP PO DAILY January 21, 2022 12:00am December 30, 2022 9:41pm Start: 01-21-2022 take 1 capsule by [facility] once daily [place] 6-Hzy-Mbc-Fish Oil (Fish Oil) 60-90-500 mg capsule Active 1 CAP PO DAILY January 21, 2022 1:00am omega-3 acid ethyl esters (retirement) 1000 mg oral capsule (12 sources) Start: 12-21-2011 End: 12-20-2015 omega-3 acid ethyl esters (LOVAZA) 1 gram capsule Indications: Type II or unspecified type diabetes mellitus without mention of complication, uncontrolled Take 2 capsules by mouth twice daily. 120 capsule 11 12/21/2011 Active Comment on above: Take 2 capsules by [facility] twice daily. OMEGA-3 FATTY ACIDS CPDR (2 sources) OMEGA 3 CPDR OME GA-3 FATTY ACIDS CPDR [id number] Luis Matilde SteeleEscamilla End: 10-06-2012 OMEGA 3 CPDR OMEG A-3 FATTY ACIDS CPDR [id number] Josias Turk MD OMEGA-3 FATTY ACIDS CPDR (8 sources) OMEGA 3 CPDR OME GA-3 FATTY ACIDS CPDR [id number] Luis Matilde Escamilla DO End: 10-06-2012 OMEGA 3 CPDR OMEG A-3 FATTY ACIDS CPDR [id number] Josias Turk MD 24 hr oxybutynin chloride [...] One tablet by mouth daily OXYBUTYNIN CHLORIDE [id number] Josias Turk MD oxyCODONE hydrochloride 5 mg oral tablet (20 sources) Opioid Agonist Start: 05-16-2024 End: 06-22-2024 [...] Start: 05-10-2024 End: 05-11-2024 polyethylene glycol 3350 66082 mg powder for oral solution (2 sources) Osmotic Laxative Start: 05-11-2024 End: 05-16-2024 microencapsulated potassium chloride 20 meq extended release oral tablet (20 sources) Start: 05-16-2024 End: 06-22-2024 take 2 [...] tablet by mouth at bedtime. PRAVASTATIN SODIUM [id number] Raven Thrasher PA-C 100 ml propofol 10 mg/ml injection (2 sources) General Anesthetic Start: 05-10-2024 End: 05-10-2024 SITagliptin 100 mg oral tablet (20 sources) Dipeptidyl Peptidase 4 Inhibitor Start: 07-01-2017 End: 01-06-2021 take 1 tablet by mouth once daily Sitagliptin Phosphate 100 MG tablet Discontinued 100 mg PO DAILY July 01, 2017 12:00am January 06, 2021 3:57pm diabetes take 1 tablet by mouth once ellen y JANUVIA 100 MG TABS One tablet by mouth daily SITAGLIPTIN PHOSPHATE [id number] Alexandra Baum NP 5 ml sodium chloride 9 mg/ml injection [...] 0.025 % CREA as directed TRIAMCINOLONE ACETONIDE [id number] Josias Turk MD End: 05-16-2024 triamcinolone (Kenalog) 0.1 % ointment Apply topically. Active triamcinolone (K enalog) 0.1 % lotion Apply 1 Application topically Daily as needed. Active vardenafil 10 mg disintegrating oral tablet (10 sources) Phosphodiesterase 5 Inhibitor End: 05-15-2013 STAXYN 10 MG TBDP as needed VARDENAFIL HCL [id number] Deni Lu Vibegron (20 sources) Start: 01-21-2022 [...] 1 000 MCG/15ML LIQD injections monthly CYANOCOBALAMIN [id number] Josias Turk MD Start: 05-15-2013 VITAMIN B-12 1 000 MCG/15ML LIQD injections monthly CYANOCOBALAMIN [id number] Josias Turk MD Start: 05-15-2013 VITAMIN B-12 1 000 MCG/15ML LIQD injections monthly CYANOCOBALAMIN [id number] Josias Turk MD (8 sources) Start: 05-10-2024 End: 05-16-2024 [Order 1 Start] Name: ashvin ium sulfate IVPB premix 2,000 mg Signed [...] 05-10-2024 End: 05-16-2024 [Order 1 Start] Name: sueass ium chloride IVPB 20 mEq Signed Summary: [...] [Ventricular premature beats] Onset: 11-21-2014 11-21-2014 Chronic Coagulation and hemorrhagic disorders (2 sources) Coagulation defect, unspecified; Translations: [Coagulation defect, unspecified (HCC)] Onset: 05-04-2024 Chronic Conditions associated with dizziness or vertigo (10 sources) Vertigo; Translations: [Dizziness and giddiness] Onset: 10-12-2024 09-08-2024 Episodic Coronary atherosclerosis and other heart disease (20 sources) Atherosclerotic heart disease of [place] coronary artery without angina pectoris; Translations: [Coronary atherosclerosis] Onset: 09-20-2012 12-10-2015 Chronic Comment on above: Mild Coronary atherosclerosis and other heart disease (1 source) Coronary atherosclerosis and other heart disease Deficiency and other anemia (20 sources) Anemia; Translations: [Anemia, unspecified] 07-06-2024 Episodic Deficiency and other anemia (1 source) Anemia, unspecified; Translations: [Anemia, unspecified] Onset: 10-02-2024 Episodic Diabetes mellitus with complications (20 sources) [...] Onset: 09-20-2012 09-20-2012 Chronic E Codes: Fall (20 sources) Fall; Translations: [Unspecified fall, initial encounter] 12-30-2022 Episodic Essential hypertension (20 sources) Hypertensive disorder; Translations: [Essential (primary) hypertension] Onset: 09-20-2012 09-20-2012 Chronic Immunizations and screening for infectious disease (2 sources) Contact with or exposure to other viral diseases; Translations: [Close exposure to COVID-19 virus] Episodic Intracranial injury (20 sources) Concussion injury of body structure; Translations: [Concussion] 12-30-2022 Episodic Malaise and fatigue (20 sources) Fatigue; Translations: [Other fatigue] Onset: 07-12-2011 Resolved: 12-10-2015 10-06-2012 Episodic Nonspecific chest pain (20 sources) Chest pain; Translations: [Chest pain, unspecified] Onset: 04-24-2024 04-21-2024 Episodic Nutritional deficiencies (1 source) Vitamin D deficiency, unspecified; Translations: [Vitamin D deficiency, unspecified] Onset: 12-13-2024 Chronic Osteoarthritis (17 sources) Osteoarthritis of right knee joint; Translations: [Unilateral primary osteoarthritis, right knee] 06-14-2023 Chronic Other aftercare (1 source) Encounter for surgical aftercare following surgery on the circulatory system; Translations: [Encounter for surgical aftercare following surgery on the circulatory system] Onset: 10-12-2024 Episodic Other and ill-defined heart disease (20 sources) Diastolic dysfunction; Translations: [Other ill-defined heart diseases] 03-23-2024 Chronic Other and ill-defined heart disease (2 sources) Other ill-defined heart diseases; Translations: [Other ill-defined heart diseases] Onset: 04-27-2024 Chronic Other circulatory disease (20 sources) Disorder of carotid artery; Translations: [Disorder of arteries and arterioles, unspecified] 01-06-2021 Chronic Other circulatory disease (6 sources) Disorder of arteries and arterioles, unspecified; Translations: [Unspecified disorders of arteries and arterioles] Onset: 04-27-2024 01-21-2022 Chronic Other diseases of bladder and urethra (20 sources) Overactive bladder; Translations: [Overactive bladder] 05-16-2024 Chronic Other endocrine disorders (2 sources) Testicular hypofunction; Translations: [Testicular hypofunction] Onset: 09-13-2024 Chronic Other injuries and conditions due to external causes (20 sources) Closed injury of head; Translations: [Unspecified injury of head, initial encounter] 12-30-2022 Episodic Other nervous system disorders (5 sources) Carpal tunnel syndrome, unspecified upper limb; Translations: [Carpal tunnel syndrome] Onset: 07-18-2013 07-20-2013 Chronic Other nervous system disorders (20 sources) Normal pressure hydrocephalus; Translations: [(Idiopathic) normal pressure hydrocephalus] 12-20-2017 Chronic Other nervous system disorders (17 sources) Neuropathy of lower limb; Translations: [Unspecified mononeuropathy of unspecified lower limb] 06-14-2023 Chronic Other non-traumatic joint disorders (17 sources) Instability of joint of right knee; Translations: [Other instability, right knee] 06-14-2023 Episodic Other non-traumatic joint disorders (1 source) Pain in left hip; Translations: [Pain in left hip] Onset: 12-15-2024 Episodic Other nutritional; endocrine; and metabolic disorders [...] specified body structures] Onset: 04-24-2024 Chronic Other skin disorders (2 sources) Localized swelling, mass and lump, right upper limb; Translations: [Localized swelling, mass and lump, right upper limb] Onset: 12-27-2024 Episodic Residual codes; unclassified (20 sources) Obstructive sleep apnea syndrome; Translations: [Obstructive sleep apnea (adult) (pediatric)] Onset: 05-04-2024 12-20-2017 Chronic Residual codes; unclassified (20 sources) Bilateral lower limb edema; Translations: [Localized edema] 04-05-2023 Episodic Skin and subcutaneous tissue infections (2 sources) Cellulitis of right toe; Translations: [Cellulitis of left toe] Onset: 10-06-2024 Episodic Spondylosis; intervertebral disc disorders; other back problems (5 sources) Displacement of lumbar intervertebral disc without myelopathy; Translations: [Displacement of lumbar intervertebral disc without myelopathy] Onset: 09-27-2013 09-27-2013 Chronic Thyroid disorders (5 sources) Thyroid nodule; Translations: [Nontoxic single thyroid nodule] Onset: 03-10-2012 03-11-2012 Chronic Unclassified (20 sources) Parkinsonism; Translations: [Parkinsonism] 03-23-2024 Chronic Unclassified (20 sources) Parkinson's disease; Translations: [Parkinson's disease] 05-16-2024 Chronic Unclassified (8 sources) R07.9 - Chest pain, unspecified,R94.39 - Abnormal result of other cardiovascular function study,I25.10 - Atherosclerotic heart disease of [place] coronary artery without angina pectoris Unclassified (13 sources) [address] Unclassified (1 source) Abnormal cardiovascular stress test Unclassified (1 source) Parkinsonism, unspecified; Translations: [Parkinsonism, unspecified] Onset: 03-23-2024 Past or Other Problems Problem Classification Problem Date Documented Da te Episodic/Chronic Cardiac dysrhythmias (20 sources) Palpitations; Translations: [Bradycardia] Onset: 09-20-2012 09-20-2012 Episodic Coronary atherosclerosis and other heart disease (2 sources) Presence of aortocoronary bypass graft; Translations: [Presence of aortocoronary bypass graft] Onset: 05-10-2024 Episodic Diabetes mellitus without complication (2 sources) Hyperglycemia, unspecified; Translations: [Hyperglycemia, unspecified] Onset: 05-04-2024 Episodic Lymphadenitis (5 sources) Cervical lymphadenopathy; Translations: [Localized enlarged lymph nodes] 03-01-2012 Episodic Other and unspecified benign neoplasm (10 sources) Hemangioma of skin; Translations: [Hemangioma of skin and subcutaneous tissue] Onset: 05-12-2011 Resolved: 12-10-2015 05-12-2011 Episodic Other connective tissue disease (1 source) [...] Translations: [Overweight] Onset: 05-14-2016 05-14-2016 Episodic Other screening for suspected conditions (not mental disorders or infectious disease) (20 sources) Cardiovascular stress test abnormal; Translations: [Abnormal result of other cardiovascular function study] Onset: 04-24-2024 04-21-2024 Episodic Other skin disorders (12 sources) Skin tag; Translations: [Senile hyperkeratosis] Onset: 05-12-2011 Resolved: 12-10-2015 12-10-2015 Episodic Other skin disorders (8 sources) Senile hyperkeratosis; Translations: [Inflamed seborrheic keratosis] Onset: 05-12-2011 Resolved: 12-10-2015 12-10-2015 Episodic Residual codes; unclassified (5 sources) Family history of stroke; Translations: [Family history of stroke] 11-06-2013 Episodic Residual codes; unclassified (4 sources) Localized edema; Translations: [Edema] Onset: 07-12-2024 04-05-2023 Episodic Residual codes; unclassified (10 sources) History of clinical finding in subject; Translations: [Personal history of other specified conditions] Onset: 05-04-2024 05-04-2024 Episodic Syncope (20 sources) Syncope; Translations: [Syncope and collapse] Onset: 05-15-2013 05-15-2013 Episodic Results Test Name Value Interpretation Reference Range Facility Ext Non Vasc Limited/Soft Ti sson 12-20-2024 Ext Non Vasc Limited/Soft Tiss Normal [facility] L/S Spine Min 4 Viewson 11-23 L/S Spine Min 4 Views Normal [facility] Pelvis 1 or 2 Viewson 2024 Pelvis 1 or 2 Views Normal [facility] CBC W/Diff, Automatedon 11-23 Absolute Lymph 1.41 X10 3/uL Normal 0.83-4.51 [facility] Comment on above: Performed By: #### L 501.9985, L509.3001, L500.4050, L100.0100, L500.4100, L501.9520 ####[facility] [address] [place], [address] Absolute Neut 3.8 X10 3/uL Normal 2.0-7.7 [facility] Comment on above: Performed By: #### L 501.9985, L509.3001, L500.4050, L100.0100, L500.4100, L501.9520 ####[facility] [address] [place], [address] Basophils/100 WBC (Bld) 0.8 % Normal 0-1 [facility] Comment on above: Performed By: #### L 501.9985, L509.3001, L500.4050, L100.0100, L500.4100, L501.9520 ####[facility] [address] [place], [address] Eosinophils/100 WBC (Bld) 2.4 % Normal 0-5 [facility] Comment on above: Performed By: #### L 501.9985, L509.3001, L500.4050, L100.0100, L500.4100, L501.9520 ####[facility] [address] [place], [address] Erythrocyte distribution width (RBC) [Ratio] 15.5 % High 11.6-14.6 [facility] Comment on above: Performed By: #### L 501.9985, L509.3001, L500.4050, L100.0100, L500.4100, L501.9520 ####[facility] [address] [place], [address] Hematocrit (Bld) [Volume fraction] 43.0 % Normal 40-54 [facility] Comment on above: Performed By: #### L 501.9985, L509.3001, L500.4050, L100.0100, L500.4100, L501.9520 ####[facility] [address] [place], [address] Hemoglobin (Bld) [Mass/Vol] 13.7 g/dL Normal 13.0-16.5 [facility] Comment on above: Performed By: #### L 501.9985, L509.3001, L500.4050, L100.0100, L500.4100, L501.9520 ####[facility] [address] [place], [address] IG% 1.600 High 0.0-0.9 [facility] Comment on above: Result Comment: IG% - Immature Granulocytes (promyelocytes, myelocytes andmetamyelocytes) > 1% indicates that a LEFT SHIFT is Present. Performed By: #### L 501.9985, L509.3001, L500.4050, L100.0100, L500.4100, L501.9520 ####[facility] [address] [place], [address] Lymphocytes/100 WBC (Bld) 22.1 % Normal 19-41 [facility] Comment on above: Performed By: #### L 501.9985, L509.3001, L500.4050, L100.0100, L500.4100, L501.9520 ####[facility] [address] [place], [address] MCH (RBC) [Entitic mass] 27.2 pg Normal 27.0-32.0 [facility] Comment on above: Performed By: #### L 501.9985, L509.3001, L500.4050, L100.0100, L500.4100, L501.9520 ####[facility] [address] [place], [address] MCHC (RBC) [Mass/Vol] 31.9 g/dL Low 32-36 [facility] Comment on above: Performed By: #### L 501.9985, L509.3001, L500.4050, L100.0100, L500.4100, L501.9520 ####[facility] [address] [place], [address] MCV (RBC) [Entitic vol] 85.3 fL Normal 80-94 [facility] Comment on above: Performed By: #### L 501.9985, L509.3001, L500.4050, L100.0100, L500.4100, L501.9520 ####[facility] [address] [place], [address] Monocytes/100 WBC (Bld) 13.7 % High 0-10 [facility] Comment on above: Performed By: #### L 501.9985, L509.3001, L500.4050, L100.0100, L500.4100, L501.9520 ####[facility] [address] [place], [address] Neutrophils/100 WBC (Bld) 59.4 % Normal 47-70 [facility] Comment on above: Performed By: #### L 501.9985, L509.3001, L500.4050, L100.0100, L500.4100, L501.9520 ####[facility] [address] [place], [address] Nucleated RBC (Bld) [#/Vol] 0 10*3/uL Normal 0-5 [facility] Comment on above: Performed By: #### L 501.9985, L509.3001, L500.4050, L100.0100, L500.4100, L501.9520 ####[facility] [address] [place], [address] Platelet mean volume (Bld) [Entitic vol] 9.4 fL Normal 6.2-12.0 [facility] Comment on above: Performed By: #### L 501.9985, L509.3001, L500.4050, L100.0100, L500.4100, L501.9520 ####[facility] [address] [place], [address] Platelets (Bld) [#/Vol] 200 10*3/uL Normal 150-450 [facility] Comment on above: Performed By: #### L 501.9985, L509.3001, L500.4050, L100.0100, L500.4100, L501.9520 ####[facility] [address] [place], [address] RBC (Bld) [#/Vol] 5.04 10*6/uL Normal 4.6-6.2 [facility] Comment on above: Performed By: #### L 501.9985, L509.3001, L500.4050, L100.0100, L500.4100, L501.9520 ####[facility] [address] [place], [address] RDW SD 47.8 fl High 35.1-43.9 [facility] Comment on above: Performed By: #### L 501.9985, L509.3001, L500.4050, L100.0100, L500.4100, L501.9520 ####[facility] [address] [place], [address] WBC (Bld) [#/Vol] 6.4 10*3/uL Normal 4.4-11.0 [facility] Comment on above: Performed By: #### L 501.9985, L509.3001, L500.4050, L100.0100, L500.4100, L501.9520 ####[facility] [address] [place], [address] Comprehensive Metabolic Prof ilon 12-11-2024 Albumin [Mass/Vol] 4.2 g/dL Normal 3.4-4.8 [facility] Comment on above: Performed By: #### L 501.9985, L509.3001, L500.4050, L100.0100, L500.4100, L501.9520 ####[facility] [address] [place], [address] Albumin/Globulin [Mass ratio] 1.5 {ratio} Normal 0.9-2.4 [facility] Comment on above: Performed By: #### L 501.9985, L509.3001, L500.4050, L100.0100, L500.4100, L501.9520 ####[facility] [address] [place], [address] ALK PHOS 110 U/L Normal 40-129 [facility] Comment on above: Performed By: #### L 501.9985, L509.3001, L500.4050, L100.0100, L500.4100, L501.9520 ####[facility] [address] [place], [address] ALT [Catalytic activity/Vol] 7 U/L Normal <=46 [facility] Comment on above: Performed By: #### L 501.9985, L509.3001, L500.4050, L100.0100, L500.4100, L501.9520 ####[facility] [address] [place], [address] AST [Catalytic activity/Vol] 19 U/L Normal <=37 [facility] Comment on above: Result Comment: Hemo lysis present, Results??could be affected.?? Performed By: #### L 501.9985, L509.3001, L500.4050, L100.0100, L500.4100, L501.9520 ####[facility] [address] [place], [address] Bilirubin [Mass/Vol] 0.34 mg/dL Normal 0.00-1.30 [facility] Comment on above: Performed By: #### L 501.9985, L509.3001, L500.4050, L100.0100, L500.4100, L501.9520 ####[facility] [address] [place], [address] BUN/CRE 26.5 RATIO High 10-20 [facility] Comment on above: Performed By: #### L 501.9985, L509.3001, L500.4050, L100.0100, L500.4100, L501.9520 ####[facility] [address] [place], [address] Calcium [Mass/Vol] 9.6 mg/dL Normal 7.6-11.0 [facility] Comment on above: Performed By: #### L 501.9985, L509.3001, L500.4050, L100.0100, L500.4100, L501.9520 ####[facility] [address] [place], [address] Chloride [Moles/Vol] 105 mmol/L Normal 98-108 [facility] Comment on above: Performed By: #### L 501.9985, L509.3001, L500.4050, L100.0100, L500.4100, L501.9520 ####[facility] [address] [place], [address] CO2 [Moles/Vol] 26.7 mmol/L Normal 21.0-32.0 [facility] Comment on above: Performed By: #### L 501.9985, L509.3001, L500.4050, L100.0100, L500.4100, L501.9520 ####[facility] [address] [place], [address] Creatinine [Mass/Vol] 0.99 mg/dL Normal 0.70-1.20 [facility] Comment on above: Performed By: #### L 501.9985, L509.3001, L500.4050, L100.0100, L500.4100, L501.9520 ####[facility] [address] [place], [address] GAP 11 Normal 5-15 [facility] Comment on above: Performed By: #### L 501.9985, L509.3001, L500.4050, L100.0100, L500.4100, L501.9520 ####[facility] [address] [place], [address] GFR/1.73 sq M.predicted among non-blacks MDRD (S/P/Bld) [Vol rate/Area] 76 mL/min/{1.73_m2} Normal >60 [facility] Comment on above: Result Comment: mL/m in/1.73m2 CKD-EPI Creatinine Equation (2020) Performed By: #### L 501.9985, L509.3001, L500.4050, L100.0100, L500.4100, L501.9520 ####[facility] [address] [place], [address] Globulin (S) [Mass/Vol] 2.8 g/dL Normal 2.2-4.2 [facility] Comment on above: Performed By: #### L 501.9985, L509.3001, L500.4050, L100.0100, L500.4100, L501.9520 ####[facility] [address] [place], [address] Glucose [Mass/Vol] 150 mg/dL High 70-99 [facility] Comment on above: Performed By: #### L 501.9985, L509.3001, L500.4050, L100.0100, L500.4100, L501.9520 ####[facility] [address] [place], [address] Potassium [Moles/Vol] 4.4 mmol/L Normal 3.3-5.1 [facility] Comment on above: Result Comment: Hemo lysis present, Results??could be affected.?? Performed By: #### L 501.9985, L509.3001, L500.4050, L100.0100, L500.4100, L501.9520 ####[facility] [address] [place], [address] Sodium [Moles/Vol] 142 mmol/L Normal 133-145 [facility] Comment on above: Performed By: #### L 501.9985, L509.3001, L500.4050, L100.0100, L500.4100, L501.9520 ####[facility] [address] [place], [address] T PROT 7.0 g/dL Normal 5.9-8.4 [facility] Comment on above: Performed By: #### L 501.9985, L509.3001, L500.4050, L100.0100, L500.4100, L501.9520 ####[facility] [address] [place], [address] Urea nitrogen [Mass/Vol] 26 mg/dL High 4-19 [facility] Comment on above: Performed By: #### L 501.9985, L509.3001, L500.4050, L100.0100, L500.4100, L501.9520 ####[facility] [address] [place], [address] Hemoglobin A1con 12-11-2024 HbA1c (Bld) [Mass fraction] 7.0 % High <=5.6 [facility] Comment on above: Result Comment: Norm al < 5.7 % Prediabetic 5.7 - 6.4 % Diabetic >or= 6.5 % Please note range changes. Performed By: #### L 501.9985, L509.3001, L500.4050, L100.0100, L500.4100, L501.9520 ####[facility] [address] [place], [address] L509.3001on 12-11-2024 Testosterone [Mass/Vol] 70.70 ng/dL Low 300-720 [facility] Comment on above: Performed By: #### L 501.9985, L509.3001, L500.4050, L100.0100, L500.4100, L501.9520 ####[facility] [address] [place], [address] Lipid Profileon 12-11-2024 CHOL:HDL 2.55 Normal [facility] Comment on above: Performed By: #### L 501.9985, L509.3001, L500.4050, L100.0100, L500.4100, L501.9520 ####[facility] [address] [place], [address] Cholesterol [Mass/Vol] 109 mg/dL Normal <=200 [facility] Comment on above: Result Comment: Chol esterol level, Desirable <200 mg/dLBorderline high cholesterol 200-239 mg/dLHigh cholesterol >=240 mg/dLRecommendations of the NCEP Adult Treatment Panel for thefollowing risk-cutoff thresholds for the [place] Americanpulation. Performed By: #### L 501.9985, L509.3001, L500.4050, L100.0100, L500.4100, L501.9520 ####[facility] [address] [place], [address] Cholesterol in HDL [Mass/Vol] 43 mg/dL Normal [facility] Comment on above: Result Comment: Rianna onal Cholesterol Education Program (NCEP) guidelines:<40 mg/dL: Low HDL-cholesterol (major risk factor for CHD)>= 60 mg/dL: High HDL-cholesterol (negative risk factor forCHD)HDL-cholesterol is affected by a number of factors, e.g.smoking, exercise, hormones, sex and age. Performed By: #### L 501.9985, L509.3001, L500.4050, L100.0100, L500.4100, L501.9520 ####[facility] [address] [place], [address] Cholesterol in LDL [Mass/Vol] 43 mg/dL Normal [facility] Comment on above: Result Comment: Bord sktxrn=584-767 mg/dL Higher Dntq=706 mg/dL or greaterSampson Equation 2020 for LDL-C Performed By: #### L 501.9985, L509.3001, L500.4050, L100.0100, L500.4100, L501.9520 ####[facility] [address] [place], [address] Cholesterol in VLDL [Mass/Vol] 27 mg/dL Normal 5-40 [facility] Comment on above: Performed By: #### L 501.9985, L509.3001, L500.4050, L100.0100, L500.4100, L501.9520 ####[facility] [address] [place], [address] Triglyceride [Mass/Vol] 133 mg/dL Normal [facility] Comment on above: Result Comment: The drugs N-Acetylcysteine and Metamizole may falselydepress this assay.Normal range: <150 mg/dLBorderline High: 150-199 mg/dLHigh: 200-499 mg/dLVery High: >500 mg/dL Performed By: #### L 501.9985, L509.3001, L500.4050, L100.0100, L500.4100, L501.9520 ####[facility] [address] [place], [address] Thyroid Stim Hormone (TSH)on 12-11-2024 TSH 2.920 uIU/mL Normal 0.300-4.200 [facility] Comment on above: Performed By: #### L 501.9985, L509.3001, L500.4050, L100.0100, L500.4100, L501.9520 ####[facility] [address] [place], [address] Wound Cultureon 10-13-2024 WC Normal [facility] Comment on above: Performed By: #### M 100.1999, M100.2999 ####[facility] [address] [place], [address] Performed By: #### M 100.3000, ####[facility] [address] [place], [address] Gram Stainon 10-10-2024 GS Gram Stain No organisms seen No Epithelial cells Normal [facility] Comment on above: Performed By: #### M 100.1999 #### [facility] [address] [place], [address] Performed By: #### M 100.1999, M100.3000 ####[facility] [address] [place], [address] Performed By: #### M 100.3000, M1.1999 ####[facility] [address] [place], [address] Gram stainOrdered By: Seferino Olson on 10-09-2024 Microscopic observation Gram stain Nom (Unsp spec) [facility] Routine wound cultureOrdered By: Barron Olson on 10-09-2024 Microbial culture, routine Staphylococcus lugdunensis Abnormal [facility] Culture, Anaerobic Any Sourc melina 10-08-2024 CUAN No growth in 5 days. Normal [facility] Comment on above: Performed By: #### M 100.4001, M100.2000, M100.3000, L8200.1075 ####[facility] [facility] [address] [place], [address] Lyme Antibodies,W Bloton Lyme Additional Comment Normal . [facility] Comment on above: Result Comment: Per CDC criteria, the Lyme IgG Immunoblot is interpreted aspositive if IgG-class antibodies are detected to 5 or moreB. burgdorferi proteins, and the Lyme IgM Immunoblot isinterpreted as positive if IgM-class antibodies aredetected to 2 or more B. burgdorferi proteins. Immunoblotpatterns not meeting these criteria should not beinterpreted as positive. Epitopes from certain B.burgdorferi proteins (e.g., p41) are conserved across otherbacteria, which may lead to the detection of IgM-and/or IgGclass antibodies on the Lyme disease immunoblots inpatients without Lyme disease. Immunoblot should only beordered on specimens that are positive or equivocal by anFDA-licensed Lyme disease antibody screening test (e.g.,EIA). Results of the Lyme IgM immunoblot should not beconsidered in patients with 30 or more days of symptoms.Performed at: [address] [id number] Director: Lucas Sorto MD, Phone: [phone] Performed By: #### L 7000.5800, L509.3001 ####[facility] [address] [place], [address] LYME IgG INTERP Negative Normal Negative [facility] Comment on above: Performed By: #### L 7000.5800, L509.3001 ####[facility] [address] [place], [address] LYME IgM INTERP Negative Normal Negative [facility] Comment on above: Result Comment: Destiny dan Note: Lyme immunoblot alone is not recommended forthe diagnosis of Lyme disease. Current guidelines recommendthe use of a two-tiered approach to Lyme serology testingto improve the sensitivity and specificity of testing.[facility] 249574 Lyme Disease Serology withReflex to aid in the diagnosis of Lyme Disease. Performed By: #### L 7000.5800, L509.3001 ####[facility] [address] [place], [address] P18 Ab Absent Normal . [facility] Comment on above: Performed By: #### L 0.5800, L509.3001 ####[facility] [address] [place], [place], [phone] P23 Ab Absent Normal . [facility] Comment on above: Performed By: #### L 7000.5800, L509.3001 ####[facility] [address] [place], [address] P28 Ab Absent Normal . [facility] Comment on above: Performed By: #### L 0.5800, L509.3001 ####[facility] [address] [place], [address] P30 Ab Absent Normal . [facility] Comment on above: Performed By: #### L 7000.5800, L509.3001 ####[facility] [address] [place], [address] P39 Ab Absent Normal . [facility] Comment on above: Performed By: #### L 0.5800, L509.3001 ####[facility] [address] [place], [address] P41 Ab Present Normal . [facility] Comment on above: Performed By: #### L 0.5800, L509.3001 ####[facility] [address] [place], [address] P41 Ab Absent Normal . [facility] Comment on above: Performed By: #### L 0.5800, L509.3001 ####[facility] [address] [place], [address] P45 Ab Absent Normal . [facility] Comment on above: Performed By: #### L 0.5800, L509.3001 ####[facility] [address] [place], [address] P58 Ab Absent Normal . [facility] Comment on above: Performed By: #### L 6999.5800, L509.3001 ####[facility] [address] [place], [address] P66 Ab Absent Normal . [facility] Comment on above: Performed By: #### L 6999.5800, L509.3001 ####[facility] [address] [place], [address] P93 Ab Absent Normal . [facility] Comment on above: Performed By: #### L 7000.5800, L509.3001 ####[facility] [address] [place], [address] Gram Stainon 10-03-2024 GS Gram Stain No organisms seen No Epithelial cells Normal [facility] Comment on above: Performed By: #### M 100.4001, M100.2000, M100.3000, L8200.1075 ####[facility] [address] [place], [address] L509.3001on 10-03-2024 Testosterone [Mass/Vol] 52.70 ng/dL Low 300-720 [facility] Comment on above: Order Comment: AZEEM WESLEY ONLABCORP SAMPLE BEFORE SENDING OUT-SWRIGHT Performed By: #### L 7000.5800, L509.3001 ####[facility] [address] [place], [address] Wound Cultureon 10-03-2024 WC No growth aerobically. Normal [facility] Comment on above: Performed By: #### M 100.4001, M100.1999, M100.3000, L8200.1075 ####[facility] [address] [place], [address] Anaerobic cultureOrdered By: Fredis Moon on 10-02-2024 Bacteria identified Anaer cx Nom (Unsp spec) No growth in 5 days. [facility] Cardiology Visit Reporton Cardiology Visit Report Normal [facility] Gram stainOrdered By: Fredis wheeler on 10-02-2024 Microscopic observation Gram stain Nom (Unsp spec) [facility] Laboratory - Chemistry and C hemistry - challengeOrdered By: Fredis Moon on 10-02-2024 Testosterone [Mass/Vol] 52.70 ng/dL Low 300-720 [facility] MRSA Wound DNA by PCRon 09-22 MRSA DNA ASSAY Negative Normal Negative [facility] Comment on above: Order Comment: L GRE AT TOE Performed By: #### M 100.4001, M1.1999, M100.3000, L8200.1075 ####[facility] [address] [place], [address] SA DNA ASSAY Negative Normal Negative [facility] Comment on above: Order Comment: L GRE AT TOE Performed By: #### M 100.4001, M100.1999, M100.3000, L8200.1075 ####[facility] [address] [place], [address] No Panel InformationOrdered By: Abel Raymond on 10-02-2024 [facility] Cardiac Rehab [address] [place] [address] CR - Individual Treatment Plan MR#: [id number] Acct: [id number] Name: Joaquin THRASHER Rep #:[id number] 1 : 1940 84 From: Abel Swanson BS, RVT PCP: Dr. Fredis Moon MD DOS: Exercise - Initial Assessment Physician Prescribed Exercise Modalities: Treadmill, SciFit Stepper and SciFit Lateral Pender Nutrition - Initial Assessment Weight Mgt (Other Care) Height: 5 ft 6 in Weight:: 208 lb BMI: 33.5 Psychosocial - Initial Assess Target Goals Target Goals Referral to Behavioral Health PS - Interventions: Yes: Attend Stress Management Classes Patient Health Questionnaire PHQ-9 Screening 90-Day Re-eval Assessment: 1. Little interest or pleasure [...] difficult Total Score: 12 Self-Efficacy 6-Item Scale 90-Day Re-eval Assessment: We would like to know [...] Modalities: Treadmill, SciFit Stepper and SciFit Lateral Travel Counselor Exercise - 60-day Assessment Physician Prescribed Exercise Modalities: Treadmill, SciFit Stepper and SciFit Lateral Pender Exercise - 90-day Assessment Visit Date of Eval: 09/29/24 Session #:: 33 Physician Prescribed Exercise Modalities: Treadmill, SciFit Stepper and SciFit Lateral Pender Frequency: 3x/week for 12 weeks [36 sessions] Intensity: 60-80% of age predicted maximum heart rate reserve Duration: 30 - 45 minutes Current METSs:: 6.8 Target Heart Rate:: 83-117 Current RPE:: 13 Maximum Excercise HR:: 103 Resting Blood Pressure: 130/58 Maximum Exercise Blood Pressure: 166/76 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 Pt will be given his exercise prescription upon graduationas well as community resources to continue his exercise. Exercise - Final/Discharge Physician Prescribed Exercise Modalities: Treadmill, SciFit Stepper and SciFit Lateral Travel Counselor Nutrition - 30-Day Assessment Weight Mgt (Other Care) Height: 5 ft 6 in Weight:: 208 lb BMI: 33.5 Nutrition - 60-Day Assessment Weight Mgt (Other Care) Height: 5 ft 6 in Weight:: 208 lb BMI: 33.5 Core - 30-Day Assessment Hypertension Citizen Of [place] [employer] Hypertension Guidelines Reassessment Notes & Comments:: Pt's BP's are within AHA normal limits on most days. Will encourage low sodium diet and weight loss. C (more content not included)... [facility] No Panel InformationOrdered By: Fredis Moon on 10-02-2024 Lyme Disease IgG Ab 30 kDa Band Absent . [facility] Lyme Disease IgG Ab 93 kDa Band Absent . [facility] Lyme Disease IgG [place] Interp Negative Negative [facility] Lyme Disease IgM Ab (Western Blot) Negative Negative [facility] Comment on above: Please Note: Lyme im munoblot alone is not recommended forthe diagnosis of Lyme disease. Current guidelines recommendthe use of a two-tiered approach to Lyme serology testingto improve the sensitivity and specificity of testing.[facility] offers test code 915829 Lyme Disease Serology withReflex to aid in the diagnosis of Lyme Disease. Lyme Disease Western Blot Comments Comment . [facility] Comment on above: Per CDC criteria, th e Lyme IgG Immunoblot is interpreted aspositive if IgG-class antibodies are detected to 5 or moreB. burgdorferi proteins, and the Lyme IgM Immunoblot isinterpreted as positive if IgM-class antibodies aredetected to 2 or more B. burgdorferi proteins. Immunoblotpatterns not meeting these criteria should not beinterpreted as positive. Epitopes from certain B.burgdorferi proteins (e.g., p41) are conserved across otherbacteria, which may lead to the detection of IgM-and/or IgGclass antibodies on the Lyme disease immunoblots inpatients without Lyme disease. Immunoblot should only beordered on specimens that are positive or equivocal by anFDA-licensed Lyme disease antibody screening test (e.g.,EIA). Results of the Lyme IgM immunoblot should not beconsidered in patients with 30 or more days of symptoms.Performed at: [address] [id number] Director: Lucas Sorto MD, Phone: [phone] Staphylococcus aureus DNA de tection by probe and target amplification methodOrdered By: Fredis Moon on 10-02-2024 S. aureus DNA BRIAN+probe Ql (Unsp spec) Negative Negative [facility] Microalb:Creat Ratio,Random URon 09-12-2024 Creatinine [Mass/Vol] 72.60 mg/dL Normal 39.00- 259.0 0 [facility] Comment on above: Performed By: #### L 502.0250 ####[facility] [address] [place], [place], [id number] MALB:CREAT 22.0 mg/g CRE Normal <30 mg/g CRE [facility] Comment on above: Performed By: #### L 502.0250 ####[facility] [address] [place], [place], [phone] MICROALBUMIN,UR 16.0 mg/L Normal <20 mg/L [facility] Comment on above: Performed By: #### L 502.0250 ####[facility] [address] [place], [place], [phone] Random urine creatinine mt urement (mass/volume)Ordered By: Fredis Moon on 09-12-2024 Creatinine Unsp time (U) [Mass/Vol] 72.60 mg/dL 39.00-259.0 0 [facility] Urine albumin measurement wi detection limit of 20 mg/L or less (mass/volume)Ordered By: Fredis Moon on 09-12-2024 Albumin DL <= 20 mg/L (U) [Mass/Vol] 16.0 mg/L <20 mg/L [facility] Absolute lymphocyte countOrd ered By: Tiara Alston on 09-08-2024 Lymphocytes Auto (Unsp spec) [#/Vol] 0.98 10*3/uL 0.83-4.51 [facility] Absolute neutrophil countOrd ered By: Tiara Alston on 09-08-2024 Neutrophils (Bld) [#/Vol] 3.6 10*3/uL 2.0-7.7 [facility] Anion gap in Serum or Plasma Ordered By: Tiara Alston on 09-08-2024 Anion gap [Moles/Vol] 12 mmol/L 5-15 [facility] Automated lymphocyte count a s percentage of total leukocytesOrdered By: Tiara Alston on 09-08-2024 Lymphocytes/100 WBC Auto (Unsp spec) 17.6 % Low 19-41 [facility] BUN/creatinine ratioOrdered By: Tiara Alston on 09-08-2024 Urea nitrogen/Creatinine [Mass ratio] 24.2 mg/mg High 10-20 [facility] Basic Metabolic Profile (BMP )on 09-08-2024 BUN/CRE 24.2 RATIO High 10-20 [facility] Comment on above: Performed By: #### L 500.2500, L100.0100 ####[facility] [address] [place], [address] Calcium [Mass/Vol] 9.6 mg/dL Normal 7.6-11.0 [facility] Comment on above: Performed By: #### L 500.2500, L100.0100 ####[facility] [address] [place], [address] Chloride [Moles/Vol] 103 mmol/L Normal 98-108 [facility] Comment on above: Performed By: #### L 500.2500, L100.0100 ####[facility] [address] [place], [address] CO2 [Moles/Vol] 26.3 mmol/L Normal 21.0-32.0 [facility] Comment on above: Performed By: #### L 500.2500, L100.0100 ####[facility] [address] [place], [address] Creatinine [Mass/Vol] 1.00 mg/dL Normal 0.70-1.20 [facility] Comment on above: Performed By: #### L 500.2500, L100.0100 ####[facility] [address] [place], [address] ECRCL 61.00 ml/min Normal 50-250 [facility] Comment on above: Performed By: #### L 500.2500, L100.0100 ####[facility] [address] [place], [address] GAP 12 Normal 5-15 [facility] Comment on above: Performed By: #### L 500.2500, L100.0100 ####[facility] [address] [place], [address] GFR/1.73 sq M.predicted among non-blacks MDRD (S/P/Bld) [Vol rate/Area] 75 mL/min/{1.73_m2} Normal >60 [facility] Comment on above: Result Comment: mL/m in/1.73m2 CKD-EPI Creatinine Equation (2020) Performed By: #### L 500.2500, L100.0100 ####[facility] [address] [place], [address] Glucose [Mass/Vol] 109 mg/dL High 70-99 [facility] Comment on above: Performed By: #### L 500.2500, L100.0100 ####[facility] [address] [place], [address] Potassium [Moles/Vol] 4.3 mmol/L Normal 3.3-5.1 [facility] Comment on above: Performed By: #### L 500.2500, L100.0100 ####[facility] [address] [place], [address] Sodium [Moles/Vol] 141 mmol/L Normal 133-145 [facility] Comment on above: Performed By: #### L 500.2500, L100.0100 ####[facility] [address] [place], [address] Urea nitrogen [Mass/Vol] 24 mg/dL High 4-19 [facility] Comment on above: Performed By: #### L 500.2500, L100.0100 ####[facility] [address] [place], [address] Basophil percentageOrdered B y: Tiara Alston on 09-08-2024 Basophils/100 WBC (Bld) 1.1 % High 0-1 [facility] Bedside Glucoseon 09-08-2024 FINGERSTICK GLU 142 mg/dL High 74-106 [facility] Comment on above: Result Comment: NIKI ROMERO OF PATIENT CARE PER NURSING PROTOCOL Performed By: #### L 501.080 ####[facility] [address] [place], [address] CBC W/Diff, Automatedon 08-22 Absolute Lymph 0.98 X10 3/uL Normal 0.83-4.51 [facility] Comment on above: Performed By: #### L 500.2500, L100.0100 ####[facility] [address] [place], [address] Absolute Neut 3.6 X10 3/uL Normal 2.0-7.7 [facility] Comment on above: Performed By: #### L 500.2500, L100.0100 ####[facility] [address] [place], [address] Basophils/100 WBC (Bld) 1.1 % High 0-1 [facility] Comment on above: Performed By: #### L 500.2500, L100.0100 ####[facility] [address] [place], [address] Eosinophils/100 WBC (Bld) 1.8 % Normal 0-5 [facility] Comment on above: Performed By: #### L 500.2500, L100.0100 ####[facility] [address] [place], [address] Erythrocyte distribution width (RBC) [Ratio] 14.9 % High 11.6-14.6 [facility] Comment on above: Performed By: #### L 500.2500, L100.0100 ####[facility] [address] [place], [address] Hematocrit (Bld) [Volume fraction] 43.7 % Normal 40-54 [facility] Comment on above: Performed By: #### L 500.2500, L100.0100 ####[facility] [address] [place], [address] Hemoglobin (Bld) [Mass/Vol] 14.1 g/dL Normal 13.0-16.5 [facility] Comment on above: Performed By: #### L 500.2500, L100.0100 ####[facility] [address] [place], [address] IG% 0.700 Normal 0.0-0.9 [facility] Comment on above: Result Comment: IG% - Immature Granulocytes (promyelocytes, myelocytes andmetamyelocytes) > 1% indicates that a LEFT SHIFT is Present. Performed By: #### L 500.2500, L100.0100 ####[facility] [address] [place], [address] Lymphocytes/100 WBC (Bld) 17.6 % Low 19-41 [facility] Comment on above: Performed By: #### L 500.2500, L100.0100 ####[facility] [address] [place], [address] MCH (RBC) [Entitic mass] 26.8 pg Low 27.0-32.0 [facility] Comment on above: Performed By: #### L 500.2500, L100.0100 ####[facility] [address] [place], [address] MCHC (RBC) [Mass/Vol] 32.3 g/dL Normal 32-36 [facility] Comment on above: Performed By: #### L 500.2500, L100.0100 ####[facility] [address] [place], [address] MCV (RBC) [Entitic vol] 83.1 fL Normal 80-94 [facility] Comment on above: Performed By: #### L 500.2500, L100.0100 ####[facility] [address] [place], [address] Monocytes/100 WBC (Bld) 13.8 % High 0-10 [facility] Comment on above: Performed By: #### L 500.2500, L100.0100 ####[facility] [address] [place], [address] Neutrophils/100 WBC (Bld) 65.0 % Normal 47-70 [facility] Comment on above: Performed By: #### L 500.2500, L100.0100 ####[facility] [address] [place], [address] Nucleated RBC (Bld) [#/Vol] 0 10*3/uL Normal 0-5 [facility] Comment on above: Performed By: #### L 500.2500, L100.0100 ####[facility] [address] [place], [address] Platelet mean volume (Bld) [Entitic vol] 9.2 fL Normal 6.2-12.0 [facility] Comment on above: Performed By: #### L 500.2500, L100.0100 ####[facility] [address] [place], [address] Platelets (Bld) [#/Vol] 189 10*3/uL Normal 150-450 [facility] Comment on above: Performed By: #### L 500.2500, L100.0100 ####[facility] [address] [place], [address] RBC (Bld) [#/Vol] 5.26 10*6/uL Normal 4.6-6.2 [facility] Comment on above: Performed By: #### L 500.2500, L100.0100 ####[facility] [address] [place], [address] RDW SD 44.7 fl High 35.1-43.9 [facility] Comment on above: Performed By: #### L 500.2500, L100.0100 ####[facility] [address] [place], [address] WBC (Bld) [#/Vol] 5.6 10*3/uL Normal 4.4-11.0 [facility] Comment on above: Performed By: #### L 500.2500, L100.0100 ####[facility] [address] [place], [address] Carbon dioxide, total [Moles /volume] in Central venous bloodOrdered By: Tiara Alston on 09-08-2024 CO2 [Moles/Vol] 26.3 mmol/L 21.0-32.0 [facility] Chest PA and Lateralon 09-08 Chest PA and Lateral Normal [facility] Chloride assayOrdered By: Jaun Alston on 09-08-2024 Chloride [Moles/Vol] 103 mmol/L 98-108 [facility] Emergency Department Summary on 09-08-2024 Emergency Department Summary Normal [facility] Eosinophil percentageOrdered By: Tiara Alston on 09-08-2024 Eosinophils/100 WBC (Bld) 1.8 % 0-5 [facility] Erythrocyte distribution wid th ratioOrdered By: Tiara Alston on 09-08-2024 Erythrocyte distribution width (RBC) [Ratio] 14.9 % High 11.6-14.6 [facility] Erythrocyte distribution wid th standard deviationOrdered By: Tiara Alston on 09-08-2024 Erythrocyte distribution width (RBC) [Ratio] 44.7 fl High 35.1-43.9 [facility] Glomerular filtration rate ( GFR) estimation/1.73 sq m using serum, plasma, or whole bOrdered By: Tiara Alston on 09-08-2024 GFR/1.73 sq M.predicted among non-blacks MDRD (S/P/Bld) [Vol rate/Area] 75 mL/min/{1.73_m2} >60 [facility] Comment on above: mL/min/1.73m2 CKD-EP I Creatinine Equation (2020) [facility] deOrdered By: Tiara Alston on 09-08-2024 Glucose [Mass/Vol] 142 mg/dL High 74-106 [facility] Comment on above: MANAGEMENT OF PATIEN T CARE PER NURSING PROTOCOL Hematocrit Auto (Bld) [Volum e fraction]Ordered By: Tiara Alston on 09-08-2024 Hematocrit (Bld) [Volume fraction] 43.7 % 40-54 [facility] Hemoglobin measurementOrdere d By: Tiara Alston on 09-08-2024 Hemoglobin (Bld) [Mass/Vol] 14.1 g/dL 13.0-16.5 [facility] Immature granulocytes/100 WB C Auto (Bld)Ordered By: Tiara Alston on 09-08-2024 Immature granulocytes/100 WBC (Bld) 0.700 % 0.0-0.9 [facility] Comment on above: IG% - Immature Granu locytes (promyelocytes, myelocytes and metamyelocytes) > 1% indicates that a LEFT SHIFT is Present. L499.0042on 09-08-2024 Trop T High Sen < 6 Normal <=22 [facility] Comment on above: Performed By: #### L 499.0042 ####[facility] [address] [place], [address] L499.0043on 09-08-2024 Trop T High Sen Normal <=22 [facility] Comment on above: Result Comment: Canc elled via OM: Order cancelled - Patient discharged Performed By: #### L 499.0043 ####[facility] [address] [place], [address] L501.4021on 09-08-2024 Trop T High Sen 6 ng/L Normal <=22 [facility] Comment on above: Performed By: #### L 501.4021 ####[facility] [address] [place], [address] MCV (mean corpuscular volume ) determinationOrdered By: Tiara Alston on 09-08-2024 MCV (RBC) [Entitic vol] 83.1 fL 80-94 [facility] Mean corpuscular hemoglobin (MCH) determinationOrdered By: Tiara Alston on 09-08-2024 MCH (RBC) [Entitic mass] 26.8 pg Low 27.0-32.0 [facility] Mean corpuscular hemoglobin concentration (MCHC) determinationOrdered By: Tiara Alston on 09-08-2024 MCHC (RBC) [Mass/Vol] 32.3 g/dL 32-36 [facility] Mean platelet volume determi nationOrdered By: Tiara Alston on 09-08-2024 Platelet mean volume (Bld) [Entitic vol] 9.2 fL 6.2-12.0 [facility] Monocyte percentageOrdered B y: Tiara Alston on 09-08-2024 Monocytes/100 WBC (Bld) 13.8 % High 0-10 [facility] Neutrophil percentageOrdered By: Tiara Alston on 09-08-2024 Neutrophils/100 WBC (Bld) 65.0 % 47-70 [facility] Nucleated red blood cell per centageOrdered By: Tiara Alston on 09-08-2024 Nucleated RBC/100 WBC (Bld) [Ratio] 0 % 0-5 [facility] Platelet countOrdered By: Jaun Alston on 09-08-2024 Platelets (Bld) [#/Vol] 189 10*3/uL 150-450 [facility] Potassium measurement (mass/ volume)Ordered By: Tiara Alston on 09-08-2024 Potassium (Unsp spec) [Mass/Vol] 4.3 mmol/L 3.3-5.1 [facility] RBC Auto (Bld) [#/Vol]Ordere d By: Tiara Alston on 09-08-2024 RBC (Bld) [#/Vol] 5.26 10*6/uL 4.6-6.2 [facility] Serum creatinine measurement (mass/volume)Ordered By: Tiara Alston on 09-08-2024 Creatinine [Mass/Vol] 1.00 mg/dL 0.70-1.20 [facility] Serum glucose measurement (m ass/volume)Ordered By: Tiara Alston on 09-08-2024 Glucose [Mass/Vol] 109 mg/dL High 70-99 [facility] Serum or plasma calcium mt urement (mass/volume)Ordered By: Tiara Alston on 09-08-2024 Calcium [Mass/Vol] 9.6 mg/dL 7.6-11.0 [facility] Serum or plasma urea nitroge n measurement (mass/volume)Ordered By: Tiara Alston on 09-08-2024 Urea nitrogen [Mass/Vol] 24 mg/dL High 4-19 [facility] Sodium levelOrdered By: Velia Alston on 09-08-2024 Sodium [Moles/Vol] 141 mmol/L 133-145 [facility] Troponin T.cardiac [Mass/vol ume] in Serum or Plasma by High sensitivity methodOrdered By: Tiara Alston on 09-08-2024 Troponin T.cardiac High sensitivity method [Mass/Vol] < 6 ng/L <22 [facility] Troponin T.cardiac High sensitivity method [Mass/Vol] 6 ng/L <22 [facility] White blood cell (WBC) count Ordered By: Tiara Alston on 09-08-2024 WBC (Bld) [#/Vol] 5.6 10*3/uL 4.4-11.0 [facility] Absolute lymphocyte countOrd ered By: Fredis Moon on 09-07-2024 Lymphocytes Auto (Unsp spec) [#/Vol] 1.28 10*3/uL 0.83-4.51 [facility] Absolute neutrophil countOrd ered By: Fredis Moon on 09-07-2024 Neutrophils (Bld) [#/Vol] 4.3 10*3/uL 2.0-7.7 [facility] Anion gap in Serum or Plasma Ordered By: Fredis Moon on 09-07-2024 Anion gap [Moles/Vol] 14 mmol/L 5-15 [facility] Automated lymphocyte count a s percentage of total leukocytesOrdered By: Fredis Moon on 09-07-2024 Lymphocytes/100 WBC Auto (Unsp spec) 19.0 % -41 [facility] BUN/creatinine ratioOrdered By: Fredis Moon on 09-07-2024 Urea nitrogen/Creatinine [Mass ratio] 25.8 mg/mg High 10-20 [facility] Basophil percentageOrdered B y: Fredis Moon on 09-07-2024 Basophils/100 WBC (Bld) 0.7 % 0-1 [facility] Bilirubin, totalOrdered By: Fredis Moon on 09-07-2024 Bilirubin [Mass/Vol] 0.27 mg/dL 0.00-1.30 [facility] CBC W/Diff, Automatedon 08-22 Absolute Lymph 1.28 X10 3/uL Normal 0.83-4.51 [facility] Comment on above: Performed By: #### L 506.1001, L501.9985, L100.0100, L500.4050, L500.4100, L501.9520 ####[facility] [address] [place], [address] Absolute Neut 4.3 X10 3/uL Normal 2.0-7.7 [facility] Comment on above: Performed By: #### L 506.1001, L501.9985, L100.0100, L500.4050, L500.4100, L501.9520 ####[facility] [address] [place], [address] Basophils/100 WBC (Bld) 0.7 % Normal 0-1 [facility] Comment on above: Performed By: #### L 506.1001, L501.9985, L100.0100, L500.4050, L500.4100, L501.9520 ####[facility] [address] [place], [address] Eosinophils/100 WBC (Bld) 1.9 % Normal 0-5 [facility] Comment on above: Performed By: #### L 506.1001, L501.9985, L100.0100, L500.4050, L500.4100, L501.9520 ####[facility] [address] [place], [address] Erythrocyte distribution width (RBC) [Ratio] 14.8 % High 11.6-14.6 [facility] Comment on above: Performed By: #### L 506.1001, L501.9985, L100.0100, L500.4050, L500.4100, L501.9520 ####[facility] [address] [place], [address] Hematocrit (Bld) [Volume fraction] 41.1 % Normal 40-54 [facility] Comment on above: Performed By: #### L 506.1001, L501.9985, L100.0100, L500.4050, L500.4100, L501.9520 ####[facility] [address] [place], [address] Hemoglobin (Bld) [Mass/Vol] 13.4 g/dL Normal 13.0-16.5 [facility] Comment on above: Performed By: #### L 506.1001, L501.9985, L100.0100, L500.4050, L500.4100, L501.9520 ####[facility] [address] [place], [address] IG% 0.600 Normal 0.0-0.9 [facility] Comment on above: Result Comment: IG% - Immature Granulocytes (promyelocytes, myelocytes andmetamyelocytes) > 1% indicates that a LEFT SHIFT is Present. Performed By: #### L 506.1001, L501.9985, L100.0100, L500.4050, L500.4100, L501.9520 ####[facility] [address] [place], [address] Lymphocytes/100 WBC (Bld) 19.0 % Normal 19-41 [facility] Comment on above: Performed By: #### L 506.1001, L501.9985, L100.0100, L500.4050, L500.4100, L501.9520 ####[facility] [address] [place], [address] MCH (RBC) [Entitic mass] 27.1 pg Normal 27.0-32.0 [facility] Comment on above: Performed By: #### L 506.1001, L501.9985, L100.0100, L500.4050, L500.4100, L501.9520 ####[facility] [address] [place], [address] MCHC (RBC) [Mass/Vol] 32.6 g/dL Normal 32-36 [facility] Comment on above: Performed By: #### L 506.1001, L501.9985, L100.0100, L500.4050, L500.4100, L501.9520 ####[facility] [address] [place], [address] MCV (RBC) [Entitic vol] 83.0 fL Normal 80-94 [facility] Comment on above: Performed By: #### L 506.1001, L501.9985, L100.0100, L500.4050, L500.4100, L501.9520 ####[facility] [address] [place], [address] Monocytes/100 WBC (Bld) 14.4 % High 0-10 [facility] Comment on above: Performed By: #### L 506.1001, L501.9985, L100.0100, L500.4050, L500.4100, L501.9520 ####[facility] [address] [place], [address] Neutrophils/100 WBC (Bld) 63.4 % Normal 47-70 [facility] Comment on above: Performed By: #### L 506.1001, L501.9985, L100.0100, L500.4050, L500.4100, L501.9520 ####[facility] [address] [place], [address] Nucleated RBC (Bld) [#/Vol] 0 10*3/uL Normal 0-5 [facility] Comment on above: Performed By: #### L 506.1001, L501.9985, L100.0100, L500.4050, L500.4100, L501.9520 ####[facility] [address] [place], [address] Platelet mean volume (Bld) [Entitic vol] 9.2 fL Normal 6.2-12.0 [facility] Comment on above: Performed By: #### L 506.1001, L501.9985, L100.0100, L500.4050, L500.4100, L501.9520 ####[facility] [address] [place], [address] Platelets (Bld) [#/Vol] 190 10*3/uL Normal 150-450 [facility] Comment on above: Performed By: #### L 506.1001, L501.9985, L100.0100, L500.4050, L500.4100, L501.9520 ####[facility] [address] [place], [address] RBC (Bld) [#/Vol] 4.95 10*6/uL Normal 4.6-6.2 [facility] Comment on above: Performed By: #### L 506.1001, L501.9985, L100.0100, L500.4050, L500.4100, L501.9520 ####[facility] [address] [place], [address] RDW SD 44.4 fl High 35.1-43.9 [facility] Comment on above: Performed By: #### L 506.1001, L501.9985, L100.0100, L500.4050, L500.4100, L501.9520 ####[facility] [address] [place], [address] WBC (Bld) [#/Vol] 6.8 10*3/uL Normal 4.4-11.0 [facility] Comment on above: Performed By: #### L 506.1001, L501.9985, L100.0100, L500.4050, L500.4100, L501.9520 ####[facility] [address] [place], [place], [id number] Calculated very low density lipoprotein (VLDL) cholesterol measurementOrdered By: Fredis Moon on 09-07-2024 Calculated very low density lipoprotein (VLDL) cholesterol measurement 36 mg/dL 5-40 [facility] Carbon dioxide, total [Moles /volume] in Central venous bloodOrdered By: Fredis Moon on 09-07-2024 CO2 [Moles/Vol] 23.8 mmol/L 21.0-32.0 [facility] Chloride assayOrdered By: Mir Moon on 09-07-2024 Chloride [Moles/Vol] 104 mmol/L 98-108 [facility] Comprehensive Metabolic Prof ilon 09-07-2024 Albumin [Mass/Vol] 4.0 g/dL Normal 3.4-4.8 [facility] Comment on above: Performed By: #### L 506.1001, L501.9985, L100.0100, L500.4050, L500.4100, L501.9520 ####[facility] [address] [place], [address] Albumin/Globulin [Mass ratio] 1.5 {ratio} Normal 0.9-2.4 [facility] Comment on above: Performed By: #### L 506.1001, L501.9985, L100.0100, L500.4050, L500.4100, L501.9520 ####[facility] [address] [place], [address] ALK PHOS 93 U/L Normal 40-129 [facility] Comment on above: Performed By: #### L 506.1001, L501.9985, L100.0100, L500.4050, L500.4100, L501.9520 ####[facility] [address] [place], [address] ALT [Catalytic activity/Vol] U/L Normal <=46 [facility] Comment on above: Performed By: #### L 506.1001, L501.9985, L100.0100, L500.4050, L500.4100, L501.9520 ####[facility] [address] [place], [address] AST [Catalytic activity/Vol] 19 U/L Normal <=37 [facility] Comment on above: Result Comment: Hemo lysis present, Results??could be affected.?? Performed By: #### L 506.1001, L501.9985, L100.0100, L500.4050, L500.4100, L501.9520 ####[facility] [address] [place], [address] Bilirubin [Mass/Vol] 0.27 mg/dL Normal 0.00-1.30 [facility] Comment on above: Performed By: #### L 506.1001, L501.9985, L100.0100, L500.4050, L500.4100, L501.9520 ####[facility] [address] [place], [address] BUN/CRE 25.8 RATIO High 10-20 [facility] Comment on above: Performed By: #### L 506.1001, L501.9985, L100.0100, L500.4050, L500.4100, L501.9520 ####[facility] [address] [place], [address] Calcium [Mass/Vol] 9.3 mg/dL Normal 7.6-11.0 [facility] Comment on above: Performed By: #### L 506.1001, L501.9985, L100.0100, L500.4050, L500.4100, L501.9520 ####[facility] [address] [place], [address] Chloride [Moles/Vol] 104 mmol/L Normal 98-108 [facility] Comment on above: Performed By: #### L 506.1001, L501.9985, L100.0100, L500.4050, L500.4100, L501.9520 ####[facility] [address] [place], [address] CO2 [Moles/Vol] 23.8 mmol/L Normal 21.0-32.0 [facility] Comment on above: Performed By: #### L 506.1001, L501.9985, L100.0100, L500.4050, L500.4100, L501.9520 ####[facility] [address] [place], [address] Creatinine [Mass/Vol] 0.97 mg/dL Normal 0.70-1.20 [facility] Comment on above: Performed By: #### L 506.1001, L501.9985, L100.0100, L500.4050, L500.4100, L501.9520 ####[facility] [address] [place], [address] GAP 14 Normal 5-15 [facility] Comment on above: Performed By: #### L 506.1001, L501.9985, L100.0100, L500.4050, L500.4100, L501.9520 ####[facility] [address], [address] GFR/1.73 sq M.predicted among non-blacks MDRD (S/P/Bld) [Vol rate/Area] 78 mL/min/{1.73_m2} Normal >60 [facility] Comment on above: Result Comment: mL/m in/1.73m2 CKD-EPI Creatinine Equation (2020) Performed By: #### L 506.1001, L501.9985, L100.0100, L500.4050, L500.4100, L501.9520 ####[facility] [address] [place], [address] Globulin (S) [Mass/Vol] 2.7 g/dL Normal 2.2-4.2 [facility] Comment on above: Performed By: #### L 506.1001, L501.9985, L100.0100, L500.4050, L500.4100, L501.9520 ####[facility] [address] [place], [address] Glucose [Mass/Vol] 107 mg/dL High 70-99 [facility] Comment on above: Performed By: #### L 506.1001, L501.9985, L100.0100, L500.4050, L500.4100, L501.9520 ####[facility] [address] [place], [address] Potassium [Moles/Vol] 4.6 mmol/L Normal 3.3-5.1 [facility] Comment on above: Result Comment: Hemo lysis present, Results??could be affected.?? Performed By: #### L 506.1001, L501.9985, L100.0100, L500.4050, L500.4100, L501.9520 ####[facility] [address] [place], [address] Sodium [Moles/Vol] 141 mmol/L Normal 133-145 [facility] Comment on above: Performed By: #### L 506.1001, L501.9985, L100.0100, L500.4050, L500.4100, L501.9520 ####[facility] [address] [place], [address] T PROT 6.7 g/dL Normal 5.9-8.4 [facility] Comment on above: Performed By: #### L 506.1001, L501.9985, L100.0100, L500.4050, L500.4100, L501.9520 ####[facility] [address] [place], [address] Urea nitrogen [Mass/Vol] 25 mg/dL High 4-19 [facility] Comment on above: Performed By: #### L 506.1001, L501.9985, L100.0100, L500.4050, L500.4100, L501.9520 ####[facility] [address] [place], [address] Eosinophil percentageOrdered By: Fredis Red on 09-07-2024 Eosinophils/100 WBC (Bld) 1.9 % 0-5 [facility] Erythrocyte distribution wid th ratioOrdered By: Fredis Red on 09-07-2024 Erythrocyte distribution width (RBC) [Ratio] 14.8 % High 11.6-14.6 [facility] Erythrocyte distribution wid th standard deviationOrdered By: Fredis Red on 09-07-2024 Erythrocyte distribution width (RBC) [Ratio] 44.4 fl High 35.1-43.9 [facility] Glomerular filtration rate ( GFR) estimation/1.73 sq m using serum, plasma, or whole bOrdered By: Fredis Red on 09-07-2024 GFR/1.73 sq M.predicted among non-blacks MDRD (S/P/Bld) [Vol rate/Area] 78 mL/min/{1.73_m2} >60 [facility] Comment on above: mL/min/1.73m2 CKD-EP I Creatinine Equation (2020) Hematocrit Auto (Bld) [Volum e fraction]Ordered By: Fredis Moon on 09-07-2024 Hematocrit (Bld) [Volume fraction] 41.1 % 40-54 [facility] Hemoglobin A1con 09-07-2024 HbA1c (Bld) [Mass fraction] 7.1 % High <=5.6 [facility] Comment on above: Result Comment: Norm al < 5.7 % Prediabetic 5.7 - 6.4 % Diabetic >or= 6.5 % Please note range changes. Performed By: #### L 506.1001, L501.9985, L100.0100, L500.4050, L500.4100, L501.9520 ####[facility] [address] [place], [address] Hemoglobin A1c percentageOrd ered By: Fredis Moon on 09-07-2024 HbA1c (Bld) [Mass fraction] 7.1 % High <5.7 [facility] Comment on above: Normal < 5.7 % Predi abetic 5.7 - 6.4 % Diabetic >or= 6.5 % Please note range changes. Hemoglobin measurementOrdere d By: Fredis Moon on 09-07-2024 Hemoglobin (Bld) [Mass/Vol] 13.4 g/dL 13.0-16.5 [facility] Immature granulocytes/100 WB C Auto (Bld)Ordered By: Fredis Moon on 09-07-2024 Immature granulocytes/100 WBC (Bld) 0.600 % 0.0-0.9 [facility] Comment on above: IG% - Immature Granu locytes (promyelocytes, myelocytes and metamyelocytes) > 1% indicates that a LEFT SHIFT is Present. LDL calc ser/plasOrdered By: Fredis Moon on 09-07-2024 Cholesterol in LDL [Mass/Vol] 37 mg/dL [facility] Comment on above: Hvorrudctd=886-331 m g/dL & Higher Efog=245 mg/dL or greater Laboratory - Chemistry and C hemistry - challengeOrdered By: Fredis Moon on 09-07-2024 AST [Catalytic activity/Vol] 19 U/L <38 [facility] Comment on above: Hemolysis present, R esults could be affected. Lipid Profileon 09-07-2024 CHOL:HDL 2.71 Normal [facility] Comment on above: Performed By: #### L 506.1001, L501.9985, L100.0100, L500.4050, L500.4100, L501.9520 ####[facility] [address] [place], [address] Cholesterol [Mass/Vol] 115 mg/dL Normal <=200 [facility] Comment on above: Result Comment: Chol esterol level, Desirable <200 mg/dLBorderline high cholesterol 200-239 mg/dLHigh cholesterol >=240 mg/dLRecommendations of the NCEP Adult Treatment Panel for thefollowing risk-cutoff thresholds for the [place] Americ[place] health. Performed By: #### L 506.1001, L501.9985, L100.0100, L500.4050, L500.4100, L501.9520 ####[facility] [address] [place], [address] Cholesterol in HDL [Mass/Vol] 42 mg/dL Normal [facility] Comment on above: Result Comment: Rianna onal Cholesterol Education Program (NCEP) guidelines:<40 mg/dL: Low HDL-cholesterol (major risk factor for CHD)>= 60 mg/dL: High HDL-cholesterol (negative risk factor forCHD)HDL-cholesterol is affected by a number of factors, e.g.smoking, exercise, hormones, sex and age. Performed By: #### L 506.1001, L501.9985, L100.0100, L500.4050, L500.4100, L501.9520 ####[facility] [address] [place], [address] Cholesterol in LDL [Mass/Vol] 37 mg/dL Normal [facility] Comment on above: Result Comment: Bord ryoydh=773-139 mg/dL Higher Xfzy=291 mg/dL or greater Performed By: #### L 506.1001, L501.9985, L100.0100, L500.4050, L500.4100, L501.9520 ####[facility] [address] [place], [address] Cholesterol in VLDL [Mass/Vol] 36 mg/dL Normal 5-40 [facility] Comment on above: Performed By: #### L 506.1001, L501.9985, L100.0100, L500.4050, L500.4100, L501.9520 ####[facility] [address] [place], [address] Triglyceride [Mass/Vol] 179 mg/dL Normal [facility] Comment on above: Result Comment: The drugs N-Acetylcysteine and Metamizole may falselydepress this assay.Normal range: <150 mg/dLBorderline High: 150-199 mg/dLHigh: 200-499 mg/dLVery High: >500 mg/dL Performed By: #### L 506.1001, L501.9985, L100.0100, L500.4050, L500.4100, L501.9520 ####[facility] [address] [place], [address] MCV (mean corpuscular volume ) determinationOrdered By: Fredis Moon on 09-07-2024 MCV (RBC) [Entitic vol] 83.0 fL 80-94 [facility] Mean corpuscular hemoglobin (MCH) determinationOrdered By: Fredis Moon on 09-07-2024 MCH (RBC) [Entitic mass] 27.1 pg 27.0-32.0 [facility] Mean corpuscular hemoglobin concentration (MCHC) determinationOrdered By: Fredis Moon on 09-07-2024 MCHC (RBC) [Mass/Vol] 32.6 g/dL 32-36 [facility] Mean platelet volume determi nationOrdered By: Fredis Moon on 09-07-2024 Platelet mean volume (Bld) [Entitic vol] 9.2 fL 6.2-12.0 [facility] Monocyte percentageOrdered B y: Fredis Moon on 09-07-2024 Monocytes/100 WBC (Bld) 14.4 % High 0-10 [facility] Neutrophil percentageOrdered By: Fredis Moon on 09-07-2024 Neutrophils/100 WBC (Bld) 63.4 % 47-70 [facility] Nucleated red blood cell per centageOrdered By: Fredis Moon on 09-07-2024 Nucleated RBC/100 WBC (Bld) [Ratio] 0 % 0-5 [facility] Platelet countOrdered By: Mir Moon on 09-07-2024 Platelets (Bld) [#/Vol] 190 10*3/uL 150-450 [facility] Potassium measurement (mass/ volume)Ordered By: Fredis Moon on 09-07-2024 Potassium (Unsp spec) [Mass/Vol] 4.6 mmol/L 3.3-5.1 [facility] Comment on above: Hemolysis present, R esults could be affected. RBC Auto (Bld) [#/Vol]Ordere d By: Fredis Moon on 09-07-2024 RBC (Bld) [#/Vol] 4.95 10*6/uL 4.6-6.2 [facility] Screening total cholesterol/ high density lipoprotein (HDL) cholesterol ratioOrdered By: Fredis Moon 09-07-2024 Cholesterol.total/Choles terol in HDL [Mass ratio] 2.71 {ratio} [facility] Serum creatinine measurement (mass/volume)Ordered By: Fredis Moon on 09-07-2024 Creatinine [Mass/Vol] 0.97 mg/dL 0.70-1.20 [facility] Serum globulin measurementOr dered By: Fredis Moon 09-07-2024 Globulin (S) [Mass/Vol] 2.7 g/dL 2.2-4.2 [facility] Serum glucose measurement (m ass/volume)Ordered By: Fredis Moon on 09-07-2024 Glucose [Mass/Vol] 107 mg/dL High 70-99 [facility] Serum or plasma alanine hector otransferase (ALT) measurementOrdered By: Fredis Moon 09-07-2024 ALT [Catalytic activity/Vol] U/L <47 [facility] Serum or plasma albumin mt urement (mass/volume)Ordered By: Freids Moon 09-07-2024 Albumin [Mass/Vol] 4.0 g/dL 3.4-4.8 [facility] Serum or plasma albumin/glob ulin mass ratioOrdered By: Fredis Perry09-07-2024 Albumin/Globulin [Mass ratio] 1.5 {ratio} 0.9-2.4 [facility] Serum or plasma alkaline kristyn sphatase measurementOrdered By: Fredis Red 09-07-2024 ALP [Catalytic activity/Vol] 93 U/L 40-129 [facility] Serum or plasma calcium mt urement (mass/volume)Ordered By: Fredis Moon 09-07-2024 Calcium [Mass/Vol] 9.3 mg/dL 7.6-11.0 [facility] Serum or plasma cholesterol in HDL measurement (mass/volume)Ordered By: Fredis Red 09-07-2024 Cholesterol in HDL [Mass/Vol] 42 mg/dL >40 [facility] Comment on above: National Cholesterol Education Program (NCEP) guidelines:<40 mg/dL: Low HDL-cholesterol (major risk factor for CHD)>= 60 mg/dL: High HDL-cholesterol (negative risk factor for CHD)HDL-cholesterol is affected by a number of factors, e.g. smoking, exercise, hormones, sex and age. Serum or plasma cholesterol measurement (mass/volume)Ordered By: Fredis Moon 09-07-2024 Cholesterol [Mass/Vol] 115 mg/dL <201 [facility] Comment on above: Cholesterol level, D esirable <200 mg/dLBorderline high cholesterol 200-239 mg/dLHigh cholesterol >=240 mg/dLRecommendations of the NCEP Adult Treatment Panel for the following risk-cutoff thresholds for the [place] population. Serum or plasma urea nitroge n measurement (mass/volume)Ordered By: Fredis Moon 09-07-2024 Urea nitrogen [Mass/Vol] 25 mg/dL High 4-19 [facility] Sodium levelOrdered By: Fredis Moon 09-07-2024 Sodium [Moles/Vol] 141 mmol/L 133-145 [facility] TSH DL <= 0.005 mIU/L QnOrde red By: Fredis Moon on 09-07-2024 TSH Qn 2.070 uIU/mL 0.300-4.200 [facility] Thyroid Stim Hormone (TSH)on 09-07-2024 TSH 2.070 uIU/mL Normal 0.300-4.200 [facility] Comment on above: Performed By: #### L 506.1001, L501.9985, L100.0100, L500.4050, L500.4100, L501.9520 ####[facility] [address] [place], [address] Total proteinOrdered By: Fredis Moon on 09-07-2024 Protein [Mass/Vol] 6.7 g/dL 5.9-8.4 [facility] Triglycerides measurementOrd ered By: Fredis Moon on 09-07-2024 Triglyceride [Mass/Vol] 179 mg/dL <199 [facility] Comment on above: The drugs N-Acetylcy steine and Metamizole may falsely depress this assay. Normal range: <150 mg/dLBorderline High: 150-199 mg/dLHigh: 200-499 mg/dLVery High: >500 mg/dL Vitamin D,25 Hydroxyon 09-07 Vitamin D 25-OH 39.6 ng/mL Normal 30-100 [facility] Comment on above: Result Comment: Katie min D StatusDeficiency: <20 ng/mL (50nmol/L)Insufficiency: 20-30 ng/mL (50-75 nmol/L)Sufficiency: 30-100 ng/mL (75-250 nmol/L)Toxicity: >100 ng/mL (>250 nmol/L) Performed By: #### L 506.1001, L501.9985, L100.0100, L500.4050, L500.4100, L501.9520 ####[facility] [address] [place], [place], [id number] White blood cell (WBC) count Ordered By: Fredis Moon on 09-07-2024 WBC (Bld) [#/Vol] 6.8 10*3/uL 4.4-11.0 [facility] No Panel InformationOrdered By: Abel Raymond on 09-04-2024 [facility] [address] [place] [address] CR - Individual Treatment Plan MR#: [id number] Acct: [id number] Name: Joaquin THRASHER Rep #:[id number] 2 : 1940 84 From: Abel Swanson BS, RVT PCP: Dr. Fredis Moon MD DOS: Exercise - Initial Assessment Physician Prescribed Exercise Modalities: Treadmill, SciFit Stepper and SciFit Lateral Pender Nutrition - Initial Assessment Weight Mgt (Other Care) Height: 5 ft 6 in Weight:: 207 lb BMI: 33.4 Core - Initial Assessment Hypertension Resting Blood Pressure:: 146/60 Citizen [place] [employer] Hypertension Guidelines Psychosocial - Initial [...] Modalities: Treadmill, SciFit Stepper and SciFit Lateral Travel Counselor Exercise - 60-day Assessment Visit Date of Eval: 09/01/24 Session #:: 22 Physician Prescribed Exercise Modalities: Treadmill, SciFit Stepper and SciFit Lateral Pender Frequency: 3x/week for 12 weeks [36 sessions] [...] Modalities: Treadmill, SciFit Stepper and SciFit Lateral Pender Exercise - Final/Discharge Physician Prescribed Exercise Modalities: Treadmill, SciFit Stepper and SciFit Lateral Travel Counselor Nutrition - 30-Day Assessment Weight Mgt (Other Care) Height: 5 ft 6 in Weight:: 207 lb BMI: 33.4 Nutrition - 60-Day Assessment Program Goals Nutrition Program Goals Patient has diagnosis of Hyperlipidemia (ICD E78)?: Yes Visit Date of Eval: 09/01/24 Session #:: 22 Cholesterol/Lipids (Other Core Measures) Determine presence & major risk factors that modif (more content not included)... [facility] No Panel InformationOrdered By: Abel Raymond on 08-06-2024 [facility] Cardiac Rehab [address] [place] [address] CR - Individual Treatment Plan MR#: [id number] Acct: [id number] Name: Joaquin THRASHER Rep #:[id number] 1 : 1940 84 From: Abel Swanson BS, RVT PCP: Dr. Fredis Moon MD DOS: Exercise - Initial Assessment Visit Session #:: 12 Physician Prescribed Exercise Modalities: Treadmill, SciFit Stepper, SciFit Pro-II Ergometer and SciFit Lateral Pender Nutrition - Initial Assessment Weight Mgt (Other [...] Physician Prescribed Exercise Modalities: Treadmill, SciFit Stepper, [place] Pro-II Ergometer and [place] Teddy Bear Lateral Pender Frequency: 3x/week for 12 weeks [36 sessions] [...] Stepper, SciFit Pro-II Ergometer and SciFit Lateral Pender Exercise - 90-day Assessment Physician Prescribed Exercise Modalities: Treadmill, SciFit Stepper, SciFit Pro-II Ergometer and SciFit Lateral Pender Exercise - Final/Discharge Physician Prescribed Exercise Modalities: Treadmill, SciFit Stepper, SciFit Pro-II Ergometer and SciFit Lateral Pender Nutrition - 30-Day Assessment Program Goals Nutrition Program Goals Patient has diagnosis of Hyperlipidemia (ICD E78)?: Yes Visit Date of Eval: 08/03/24 Session #:: 12 Cholesterol/Lipids (Other Core Measures) Determine presence & major risk factors that modify LDL goal: Hypertension or hypertensive medication, Low HDL cholesterol <40 mg/dL*, Family history of prematur (more content not included)... [facility] Progress Noteon 07-31-2024 Progress Note 07/31/24 [...] were you homeless or living in a prison (including now)? N Transportation Needs In the [...] than 3 How often do you attend anglican or jainism services? More than 4 Do you belong to any clubs or organizations such as anglican groups, unions, fraternal or athletic groups, or [...] from your doctor or pharmacy? Never Normal [facility] Progress Noteon 07-24-2024 Progress Note 07/24/24 1421 BPCI Late Drop? Program late drop? No BPCI Outreach Assessment Selection Which outreach assessment are you completing? 60 Day BPCI - 60 Day Outreach Did patient answer phone call? No Do you have any concerns with your medication(s)? No Any complications with post discharge services? No (Patient has been going to Cardiac Rehab ([place]) for 3 weeks now) Any concerns with your DME equipment? No Any questions about your condition you are unsure about that I can help clarify? Yes (Discussed progress made and patient going to Cardiac Rehab. Discussed medications, medical bills- emailed patient HCAP application.) Normal [facility] Absolute lymphocyte countOrd ered By: Mi Hernandez on 07-06-2024 Lymphocytes Auto (Unsp spec) [#/Vol] 1.27 10*3/uL 0.83-4.51 [facility] Absolute neutrophil countOrd ered By: Mi Hernandez on 07-06-2024 Neutrophils (Bld) [#/Vol] 3.9 10*3/uL 2.0-7.7 [facility] Anion gap in Serum or Plasma Ordered By: Samson Elder on 07-06-2024 Anion gap [Moles/Vol] 11 mmol/L 07-06 [facility] Automated lymphocyte count a s percentage of total leukocytesOrdered By: Mi Hernandez on 07-06-2024 Lymphocytes/100 WBC Auto (Unsp spec) 20.6 % - [facility] BUN/creatinine ratioOrdered By: Samson Elder on 07-06-2024 Urea nitrogen/Creatinine [Mass ratio] 25.8 mg/mg High 10- [facility] Basophil percentageOrdered B y: Mi Hernandez on 07-06-2024 Basophils/100 WBC (Bld) 1.0 % 0-1 [facility] Bilirubin, totalOrdered By: Samson Elder on 07-06-2024 Bilirubin [Mass/Vol] 0.32 mg/dL 0.00-1.30 [facility] CBC W/Diff, Automatedon 06-22 Absolute Lymph 1.27 X10 3/uL Normal 0.83-4.51 [facility] Comment on above: Performed By: #### L 100.0100 ####[facility] [address] [place], [address] Absolute Neut 3.9 X10 3/uL Normal 2.0-7.7 [facility] Comment on above: Performed By: #### L 100.0100 ####[facility] [address] [place], [address] Basophils/100 WBC (Bld) 1.0 % Normal 0-1 [facility] Comment on above: Performed By: #### L 100.0100 ####[facility] [address] [place], [address] Eosinophils/100 WBC (Bld) 1.8 % Normal 0-5 [facility] Comment on above: Performed By: #### L 100.0100 ####[facility] [address] [place], [address] Erythrocyte distribution width (RBC) [Ratio] 14.4 % Normal 11.6-14.6 [facility] Comment on above: Performed By: #### L 100.0100 ####[facility] [address] [place], [address] Hematocrit (Bld) [Volume fraction] 37.5 % Low 40-54 [facility] Comment on above: Performed By: #### L 100.0100 ####[facility] [address] [place], [address] Hemoglobin (Bld) [Mass/Vol] 12.0 g/dL Low 13.0-16.5 [facility] Comment on above: Performed By: #### L 100.0100 ####[facility] [address] [place], [address] IG% 0.600 Normal 0.0-0.9 [facility] Comment on above: Result Comment: IG% - Immature Granulocytes (promyelocytes, myelocytes andmetamyelocytes) > 1% indicates that a LEFT SHIFT is Present. Performed By: #### L 100.0100 ####[facility] [address] [place], [address] Lymphocytes/100 WBC (Bld) 20.6 % Normal 19-41 [facility] Comment on above: Performed By: #### L 100.0100 ####[facility] [address] [place], [address] MCH (RBC) [Entitic mass] 27.6 pg Normal 27.0-32.0 [facility] Comment on above: Performed By: #### L 100.0100 ####[facility] [address] [place], [address] MCHC (RBC) [Mass/Vol] 32.0 g/dL Normal 32-36 [facility] Comment on above: Performed By: #### L 100.0100 ####[facility] [address] [place], [address] MCV (RBC) [Entitic vol] 86.4 fL Normal 80-94 [facility] Comment on above: Performed By: #### L 100.0100 ####[facility] [address] [place], [address] Monocytes/100 WBC (Bld) 13.3 % High 0-10 [facility] Comment on above: Performed By: #### L 100.0100 ####[facility] [address] [place], [address] Neutrophils/100 WBC (Bld) 62.7 % Normal 47-70 [facility] Comment on above: Performed By: #### L 100.0100 ####[facility] [address] [place], [address] Nucleated RBC (Bld) [#/Vol] 0 10*3/uL Normal 0-5 [facility] Comment on above: Performed By: #### L 100.0100 ####[facility] [address] [place], [address] Platelet mean volume (Bld) [Entitic vol] 9.5 fL Normal 6.2-12.0 [facility] Comment on above: Performed By: #### L 100.0100 ####[facility] [address] [place], [address] Platelets (Bld) [#/Vol] 192 10*3/uL Normal 150-450 [facility] Comment on above: Performed By: #### L 100.0100 ####[facility] [address] [place], [address] RBC (Bld) [#/Vol] 4.34 10*6/uL Low 4.6-6.2 [facility] Comment on above: Performed By: #### L 100.0100 ####[facility] [address] [place], [address] RDW SD 45.3 fl High 35.1-43.9 [facility] Comment on above: Performed By: #### L 100.0100 ####[facility] [address] [place], [address] WBC (Bld) [#/Vol] 6.2 10*3/uL Normal 4.4-11.0 [facility] Comment on above: Performed By: #### L 100.0100 ####[facility] [address] [place], [address] Calculated very low density lipoprotein (VLDL) cholesterol measurementOrdered By: Samson Elder on 07-06-2024 Calculated very low density lipoprotein (VLDL) cholesterol measurement 21 mg/dL 5-40 [facility] Carbon dioxide, total [Moles /volume] in Central venous bloodOrdered By: Samson Elder on 07-06-2024 CO2 [Moles/Vol] 24.2 mmol/L 21.0-32.0 [facility] Cardiology Visit Reporton Cardiology Visit Report Normal [facility] Chloride assayOrdered By: Mamadou Elder on 07-06-2024 Chloride [Moles/Vol] 106 mmol/L 98-108 [facility] Comprehensive Metabolic Prof ilon 07-06-2024 Albumin [Mass/Vol] 3.9 g/dL Normal 3.4-4.8 [facility] Comment on above: Performed By: #### L 500.4100, L500.4050 ####[facility] [address] [place], [address] Albumin/Globulin [Mass ratio] 1.4 {ratio} Normal 0.9-2.4 [facility] Comment on above: Performed By: #### L 500.4100, L500.4050 ####[facility] [address] [place], [address] ALK PHOS 117 U/L Normal 40-129 [facility] Comment on above: Performed By: #### L 500.4100, L500.4050 ####[facility] [address] [place], [address] ALT [Catalytic activity/Vol] U/L Normal <=46 [facility] Comment on above: Performed By: #### L 500.4100, L500.4050 ####[facility] [address] [place], [address] AST [Catalytic activity/Vol] 17 U/L Normal <=37 [facility] Comment on above: Performed By: #### L 500.4100, L500.4050 ####[facility] [address] [place], [address] Bilirubin [Mass/Vol] 0.32 mg/dL Normal 0.00-1.30 [facility] Comment on above: Performed By: #### L 500.4100, L500.4050 ####[facility] [address] [place], [address] BUN/CRE 25.8 RATIO High 10-20 [facility] Comment on above: Performed By: #### L 500.4100, L500.4050 ####[facility] [address] [place], [address] Calcium [Mass/Vol] 9.4 mg/dL Normal 7.6-11.0 [facility] Comment on above: Performed By: #### L 500.4100, L500.4050 ####[facility] [address] [place], [address] Chloride [Moles/Vol] 106 mmol/L Normal 98-108 [facility] Comment on above: Performed By: #### L 500.4100, L500.4050 ####[facility] [address] [place], [address] CO2 [Moles/Vol] 24.2 mmol/L Normal 21.0-32.0 [facility] Comment on above: Performed By: #### L 500.4100, L500.4050 ####[facility] [address] [place], [address] Creatinine [Mass/Vol] 0.98 mg/dL Normal 0.70-1.20 [facility] Comment on above: Performed By: #### L 500.4100, L500.4050 ####[facility] [address] [place], [address] GAP 11 Normal 5-15 [facility] Comment on above: Performed By: #### L 500.4100, L500.4050 ####[facility] [address] [place], [address] GFR/1.73 sq M.predicted among non-blacks MDRD (S/P/Bld) [Vol rate/Area] 77 mL/min/{1.73_m2} Normal >60 [facility] Comment on above: Result Comment: mL/m in/1.73m2 CKD-EPI Creatinine Equation (2020) Performed By: #### L 500.4100, L500.4050 ####[facility] [address] [place], [address] Globulin (S) [Mass/Vol] 2.7 g/dL Normal 2.2-4.2 [facility] Comment on above: Performed By: #### L 500.4100, L500.4050 ####[facility] [address] [place], [address] Glucose [Mass/Vol] 173 mg/dL High 70-99 [facility] Comment on above: Performed By: #### L 500.4100, L500.4050 ####[facility] [address] [place], [address] Potassium [Moles/Vol] 4.3 mmol/L Normal 3.3-5.1 [facility] Comment on above: Performed By: #### L 500.4100, L500.4050 ####[facility] [address] [place], [address] Sodium [Moles/Vol] 141 mmol/L Normal 133-145 [facility] Comment on above: Performed By: #### L 500.4100, L500.4050 ####[facility] [address] [place], [address] T PROT 6.6 g/dL Normal 5.9-8.4 [facility] Comment on above: Performed By: #### L 500.4100, L500.4050 ####[facility] [address] [place], [address] Urea nitrogen [Mass/Vol] 25 mg/dL High 4-19 [facility] Comment on above: Performed By: #### L 500.4100, L500.4050 ####[facility] [address] [place], [address] Eosinophil percentageOrdered By: Mi Hernandez on 07-06-2024 Eosinophils/100 WBC (Bld) 1.8 % 0-5 [facility] Erythrocyte distribution wid th ratioOrdered By: Mi Hernandez on 07-06-2024 Erythrocyte distribution width (RBC) [Ratio] 14.4 % 11.6-14.6 [facility] Erythrocyte distribution wid th standard deviationOrdered By: Mi Hernandez on 07-06-2024 Erythrocyte distribution width (RBC) [Ratio] 45.3 fl High 35.1-43.9 [facility] Glomerular filtration rate ( GFR) estimation/1.73 sq m using serum, plasma, or whole bOrdered By: Samson lEder on 07-06-2024 GFR/1.73 sq M.predicted among non-blacks MDRD (S/P/Bld) [Vol rate/Area] 77 mL/min/{1.73_m2} >60 [facility] Comment on above: mL/min/1.73m2 CKD-EP I Creatinine Equation (2020) Hematocrit Auto (Bld) [Volum e fraction]Ordered By: Mi Hernandez on 07-06-2024 Hematocrit (Bld) [Volume fraction] 37.5 % Low 40-54 [facility] Hemoglobin measurementOrdere d By: Mi Hernandez on 07-06-2024 Hemoglobin (Bld) [Mass/Vol] 12.0 g/dL Low 13.0-16.5 [facility] Immature granulocytes/100 WB C Auto (Bld)Ordered By: Mi Hernandez on 07-06-2024 Immature granulocytes/100 WBC (Bld) 0.600 % 0.0-0.9 [facility] Comment on above: IG% - Immature Granu locytes (promyelocytes, myelocytes and metamyelocytes) > 1% indicates that a LEFT SHIFT is Present. LDL calc ser/plasOrdered By: Samson Elder on 07-06-2024 Cholesterol in LDL [Mass/Vol] 46 mg/dL [facility] Comment on above: Kailprrzox=053-657 m g/dL & Higher Zsef=375 mg/dL or greater Laboratory - Chemistry and C hemistry - challengeOrdered By: Samson Elder on 07-06-2024 AST [Catalytic activity/Vol] 17 U/L <38 [facility] Lipid Profileon 07-06-2024 CHOL:HDL 2.73 Normal [facility] Comment on above: Performed By: #### L 500.4100, L500.4050 ####[facility] [address] [place], [address] Cholesterol [Mass/Vol] 106 mg/dL Normal <=200 [facility] Comment on above: Result Comment: Chol esterol level, Desirable <200 mg/dLBorderline high cholesterol 200-239 mg/dLHigh cholesterol >=240 mg/dLRecommendations of the NCEP Adult Treatment Panel for thefollowing risk-cutoff thresholds for the [place] American[place]ulation. Performed By: #### L 500.4100, L500.4050 ####[facility] [address] [place], [address] Cholesterol in HDL [Mass/Vol] 39 mg/dL Low [facility] Comment on above: Result Comment: Rianna onal Cholesterol Education Program (NCEP) guidelines:<40 mg/dL: Low HDL-cholesterol (major risk factor for CHD)>= 60 mg/dL: High HDL-cholesterol (negative risk factor forCHD)HDL-cholesterol is affected by a number of factors, e.g.smoking, exercise, hormones, sex and age. Performed By: #### L 500.4100, L500.4050 ####[facility] [address] [place], [address] Cholesterol in LDL [Mass/Vol] 46 mg/dL Normal [facility] Comment on above: Result Comment: Bord jvirmh=308-254 mg/dL Higher Vyee=789 mg/dL or greater Performed By: #### L 500.4100, L500.4050 ####[facility] [address] [place], [address] Cholesterol in VLDL [Mass/Vol] 21 mg/dL Normal 5-40 [facility] Comment on above: Performed By: #### L 500.4100, L500.4050 ####[facility] [address] [place], [address] Triglyceride [Mass/Vol] 107 mg/dL Normal [facility] Comment on above: Result Comment: The drugs N-Acetylcysteine and Metamizole may falselydepress this assay.Normal range: <150 mg/dLBorderline High: 150-199 mg/dLHigh: 200-499 mg/dLVery High: >500 mg/dL Performed By: #### L 500.4100, L500.4050 ####[facility] [address] [place], [address] MCV (mean corpuscular volume ) determinationOrdered By: Mi Hernandez on 07-06-2024 MCV (RBC) [Entitic vol] 86.4 fL 80-94 [facility] Mean corpuscular hemoglobin (MCH) determinationOrdered By: Mi Hernandez on 07-06-2024 MCH (RBC) [Entitic mass] 27.6 pg 27.0-32.0 [facility] Mean corpuscular hemoglobin concentration (MCHC) determinationOrdered By: Mi Hernandez on 07-06-2024 MCHC (RBC) [Mass/Vol] 32.0 g/dL 32-36 [facility] Mean platelet volume determi nationOrdered By: Mi Hernandez on 07-06-2024 Platelet mean volume (Bld) [Entitic vol] 9.5 fL 6.2-12.0 [facility] Monocyte percentageOrdered B y: Mi Hernandez on 07-06-2024 Monocytes/100 WBC (Bld) 13.3 % High 0-10 [facility] Neutrophil percentageOrdered By: Mi Hernandez on 07-06-2024 Neutrophils/100 WBC (Bld) 62.7 % 47-70 [facility] Nucleated red blood cell per centageOrdered By: Mi Hernandez on 07-06-2024 Nucleated RBC/100 WBC (Bld) [Ratio] 0 % 0-5 [facility] Platelet countOrdered By: Jersey Hernandez on 07-06-2024 Platelets (Bld) [#/Vol] 192 10*3/uL 150-450 [facility] Potassium measurement (mass/ volume)Ordered By: Samson Elder on 07-06-2024 Potassium (Unsp spec) [Mass/Vol] 4.3 mmol/L 3.3-5.1 [facility] RBC Auto (Bld) [#/Vol]Ordere d By: Mi Hernandez on 07-06-2024 RBC (Bld) [#/Vol] 4.34 10*6/uL Low 4.6-6.2 [facility] Screening total cholesterol/ high density lipoprotein (HDL) cholesterol ratioOrdered By: Samson Elder on 07-06-2024 Cholesterol.total/Choles terol in HDL [Mass ratio] 2.73 {ratio} [facility] Serum creatinine measurement (mass/volume)Ordered By: Samson Elder on 07-06-2024 Creatinine [Mass/Vol] 0.98 mg/dL 0.70-1.20 [facility] Serum globulin measurementOr dered By: Samson Elder on 07-06-2024 Globulin (S) [Mass/Vol] 2.7 g/dL 2.2-4.2 [facility] Serum glucose measurement (m ass/volume)Ordered By: Samson Elder on 07-06-2024 Glucose [Mass/Vol] 173 mg/dL High 70-99 [facility] Serum or plasma alanine hector otransferase (ALT) measurementOrdered By: Samson Elder on 07-06-2024 ALT [Catalytic activity/Vol] U/L <47 [facility] Serum or plasma albumin mt urement (mass/volume)Ordered By: Samson Elder on 07-06-2024 Albumin [Mass/Vol] 3.9 g/dL 3.4-4.8 [facility] Serum or plasma albumin/glob ulin mass ratioOrdered By: Samson Elder on 07-06-2024 Albumin/Globulin [Mass ratio] 1.4 {ratio} 0.9-2.4 [facility] Serum or plasma alkaline kristyn sphatase measurementOrdered By: Samson Elder on 07-06-2024 ALP [Catalytic activity/Vol] 117 U/L 40-129 [facility] Serum or plasma calcium mt urement (mass/volume)Ordered By: Samson Elder on 07-06-2024 Calcium [Mass/Vol] 9.4 mg/dL 7.6-11.0 [facility] Serum or plasma cholesterol in HDL measurement (mass/volume)Ordered By: Samson Elder on 07-06-2024 Cholesterol in HDL [Mass/Vol] 39 mg/dL Low >40 [facility] Comment on above: National Cholesterol Education Program (NCEP) guidelines:<40 mg/dL: Low HDL-cholesterol (major risk factor for CHD)>= 60 mg/dL: High HDL-cholesterol (negative risk factor for CHD)HDL-cholesterol is affected by a number of factors, e.g. smoking, exercise, hormones, sex and age. Serum or plasma cholesterol measurement (mass/volume)Ordered By: Samson Elder on 07-06-2024 Cholesterol [Mass/Vol] 106 mg/dL <201 [facility] Comment on above: Cholesterol level, D esirable <200 mg/dLBorderline high cholesterol 200-239 mg/dLHigh cholesterol >=240 mg/dLRecommendations of the NCEP Adult Treatment Panel for the following risk-cutoff thresholds for the [place] Citizen [place] population. Serum or plasma urea nitroge n measurement (mass/volume)Ordered By: Samson Elder on 07-06-2024 Urea nitrogen [Mass/Vol] 25 mg/dL High 4-19 [facility] Sodium levelOrdered By: Nito Elder on 07-06-2024 Sodium [Moles/Vol] 141 mmol/L 133-145 [facility] Total proteinOrdered By: Agustin Elder on 07-06-2024 Protein [Mass/Vol] 6.6 g/dL 5.9-8.4 [facility] Triglycerides measurementOrd ered By: Samson Elder on 07-06-2024 Triglyceride [Mass/Vol] 107 mg/dL <199 [facility] Comment on above: The drugs N-Acetylcy steine and Metamizole may falsely depress this assay. Normal range: <150 mg/dLBorderline High: 150-199 mg/dLHigh: 200-499 mg/dLVery High: >500 mg/dL White blood cell (WBC) count Ordered By: Mi Hernandez on 07-06-2024 WBC (Bld) [#/Vol] 6.2 10*3/uL 4.4-11.0 [facility] Progress Noteon 07-05-2024 Progress Note [facility]: [facility] [address] [facility] [address] Dept: [phone] Dept Loc: [phone] Visit type: Established patient Reason for Visit: [...] circumstances: Recently seen in person, lives in [place] . The patient has been advised of [...] stated that they are currently in the [facility]. If the patient is a minor, [...] leg res (more content not included)... Normal [facility] CR - History AND Physicalon 07-04-2024 CR - History & Physical Normal [facility] Progress Noteon 06-30-2024 Progress Note 06/30/2024: Reached out to CCU to ask for assistance reaching [facility]. Shared my contact information with request for a return call. Call made to Nimisha to update. No answer; left a message asking for a return call if needed. Follow up outreach scheduled with goal of updating the SDOH questionnaire. Received return voicemail from Nimisha sharing appreciating and updating he is graduating from home care and will be starting Cardiac Rehab next week and all has been going well and there are no new needs. Follow up previously scheduled to complete the SDOH assessment. 06/23/2024: Received call from Nimisha asking for assistance reaching out to staff member in Environmental Services who offered kindness when he was in the Cardiac Critical Care unit. Will reach out to [facility]. Support provided. Nimisha shared appreciation for his level of recovery. Follow up outreach scheduled with goal of completing the SDOH assessment. 06/22/2024 Reviewed EMR prior to today's outreach. Noted Mr. Thrasher is home from [place] [facility]. Plan for Cardiac Rehab. BPCI call made to Mr. Nimisha Thrasher. Introduced self and reviewed role on [facility]'s BPCI team. Verified Nimisha is able and agreeable to speak today. Assessed for needs or concerns. Nimisha shared he lives in [place] with his . He identified having a strong support system. Nimisha noted the impact his strong steve has had on his life and outlook. Nimisha denied any financial stressors today. He mentioned [...] GDMT for CABG. Able to discharge to [facility] on POD#06. 06/08/2024: Referral received from LIZZIE Brand with the BPCI program, with request to update the social determinants of health questionnaire and assess for any social work needs. Outreach scheduled. Normal [facility] Basic Metabolic Profile (BMP )on 06-27-2024 BUN Normal 4-19 [facility] Comment on above: Result Comment: Canc elled via OM: Order Changed Performed By: #### L 500.2500, L100.0100 ####[facility] [address] [place], [place], [id number] BUN/CRE Normal 10-20 [facility] Comment on above: Result Comment: Canc elled via OM: Order Changed Performed By: #### L 500.2500, L100.0100 ####[facility] [address] [place], [address] Calcium Normal 7.6-11.0 [facility] Comment on above: Result Comment: Canc elled via OM: Order Changed Performed By: #### L 500.2500, L100.0100 ####[facility] [address] [place], [address] CL Normal 98-108 [facility] Comment on above: Result Comment: Canc elled via OM: Order Changed Performed By: #### L 500.2500, L100.0100 ####[facility] [address] [place], [address] CO2 Normal 21.0-32.0 [facility] Comment on above: Result Comment: Canc elled via OM: Order Changed Performed By: #### L 500.2500, L100.0100 ####[facility] [address] [place], [address] CREAT,SERUM Normal 0.70-1.20 [facility] Comment on above: Result Comment: Canc elled via OM: Order Changed Performed By: #### L 500.2500, L100.0100 ####[facility] [address] [place], [address] eGFR Normal >60 [facility] Comment on above: Result Comment: Canc elled via OM: Order Changed Performed By: #### L 500.2500, L100.0100 ####[facility] [address] [place], [address] GAP Normal 5-15 [facility] Comment on above: Result Comment: Canc elled via OM: Order Changed Performed By: #### L 500.2500, L100.0100 ####[facility] [address] [place], [address] GLU Normal 70-99 [facility] Comment on above: Result Comment: Canc elled via OM: Order Changed Performed By: #### L 500.2500, L100.0100 ####[facility] [address] [place], [address] Potassium Normal 3.3-5.1 [facility] Comment on above: Result Comment: Canc elled via OM: Order Changed Performed By: #### L 500.2500, L100.0100 ####[facility] [address] [place], [address] Basic Metabolic Profile (BMP) Normal 133-145 [facility] Comment on above: Result Comment: Canc elled via OM: Order Changed Performed By: #### L 500.2500, L100.0100 ####[facility] [address] [place], [address] CBC W/Diff, Automatedon 05-0 6-2024 Absolute Neut Normal 2.0-7.7 [facility] Comment on above: Result Comment: Canc elled via OM: Order Changed Performed By: #### L 500.2500, L100.0100 ####[facility] [address] [place], [address] HCT Normal 40-54 [facility] Comment on above: Result Comment: Canc elled via OM: Order Changed Performed By: #### L 500.2500, L100.0100 ####[facility] [address] [place], [address] HGB Normal 13.0-16.5 [facility] Comment on above: Result Comment: Canc elled via OM: Order Changed Performed By: #### L 500.2500, L100.0100 ####[facility] [address] [place], [address] MCH Normal 27.0-32.0 [facility] Comment on above: Result Comment: Canc elled via OM: Order Changed Performed By: #### L 500.2500, L100.0100 ####[facility] [address] [place], [address] MCHC Normal 32-36 [facility] Comment on above: Result Comment: Canc elled via OM: Order Changed Performed By: #### L 500.2500, L100.0100 ####[facility] [address] [place], [address] MCV Normal 80-94 [facility] Comment on above: Result Comment: Canc elled via OM: Order Changed Performed By: #### L 500.2500, L100.0100 ####[facility] [address] [place], [address] NEUT% Normal 47-70 [facility] Comment on above: Result Comment: Canc elled via OM: Order Changed Performed By: #### L 500.2500, L100.0100 ####[facility] [address] [place], [address] PLT Normal 150-450 [facility] Comment on above: Result Comment: Canc elled via OM: Order Changed Performed By: #### L 500.2500, L100.0100 ####[facility] [address] [place], [address] RBC Normal 4.6-6.2 [facility] Comment on above: Result Comment: Canc elled via OM: Order Changed Performed By: #### L 500.2500, L100.0100 ####[facility] [address] [place], [address] RDW CV Normal 11.6-14.6 [facility] Comment on above: Result Comment: Canc elled via OM: Order Changed Performed By: #### L 500.2500, L100.0100 ####[facility] [address] [place], [address] RDW SD Normal 35.1-43.9 [facility] Comment on above: Result Comment: Canc elled via OM: Order Changed Performed By: #### L 500.2500, L100.0100 ####[facility] [address] [place], [address] WBC Normal 4.4-11.0 [facility] Comment on above: Result Comment: Canc elled via OM: Order Changed Performed By: #### L 500.2500, L100.0100 ####[facility] [address] [place], [address] Progress Noteon 06-27-2024 Progress Note 06/27/24 1011 [...] Medications, and diabetes) [facility] Progress Note BPCI PRN call ADMIT DATE: 05/10/2024 DISCHARGE DATE: 05/16/2024 SURGERY: 05/10/24: s/p CABGx3 (PADILLA-LAD, RSVG-OM1, RSVG-PDA with endarterectomy), LEVH, RAYMOND with Dr. Velasco PMH: FELICIA, Parkinson's disease, CAD, HTN, DM2 Called [phone] and spoke to the patient. The patient is active with home care: PT, OT, SN-home care through [facility] services. Patient stated overall he is doing well. Went over follow up appts with the patient: 07/05 Cardiothoracic Surgery Patient stated he seen PCP Patient asked about restrictions post surgery- patient will discuss with Miguel Angel at office visit on 07/05/24. [place] [facility]-patient heard from them and he [...] on the patient. [facility] 36on 06-23-2024 36 Order sent to located within [facility] cardiac rehab. [facility] Progress Noteon 06-23-2024 Progress Note 06/23/2024: Received call from Nimisha asking for assistance reaching out to staff member in Environmental Services who offered kindness when he was in the Cardiac Critical Care unit. [facility] provided. Nimisha shared appreciation for his level of recovery. Follow up outreach scheduled with goal of completing the SDOH assessment. 06/22/2024 Reviewed EMR prior to today's outreach. [facility]. BPCI call made to Mr. Nimisha Thrasher. Introduced self and reviewed role on [facility]'s BPCI team. Verified Nimisha is able and agreeable to speak today. Assessed for needs or concerns. Nimisha shared he lives in [place] with his . He identified having a strong support system. Nimisha noted the impact his strong steve has had on his life and outlook. Nimisha denied any financial stressors today. He mentioned [...] GDMT for CABG. Able to discharge to [facility] on POD#06. 06/08/2024: Referral received from LIZZIE Brand with the BPCI program, with request to update the social determinants of health questionnaire and assess for any social work needs. Outreach scheduled. Normal [facility] Office Visiton 06-22-2024 Follow-up visit [id number] Farhana Thrasher 1940 M Date Provider Department Center 06/22/2024 [id number] ANGEL MARRERO [facility] None Family History Problem Relation Age of Onset Stroke Mother COPD Father Coronary artery disease Father Coronary artery disease Brother Heart attack Brother Family Status - Relation Status Age at Mother Father Brother Level of Service:[address] [place] POSTOP FOLLOW UP VISIT RELATED TO ORIGINAL PX Reason for Visit and Comments: Post-op [483] Normal [facility] Progress Noteon 06-22-2024 Progress Note [facility]: [facility] [address] [facility] [address] Dept: [phone] Dept Loc: [phone] Visit type: Established patient Reason for Visit: Post-op Assessment and Plan 1. S/P CABG (coronary artery bypass graft) - [facility] Cardiac/Pulmonary Rehab 05/10/24: s/p CABGx3 (PADILLA-LAD, RSVG-OM1, [...] insulin glargine-lixisenatide (more content not included)... Normal [facility] Basic Metabolic Profile (BMP )on 06-20-2024 BUN Normal 4-19 [facility] Comment on above: Result Comment: Canc elled via OM: Order Changed Performed By: #### L 100.0100, L500.2500 ####[facility] [address] [place], [address] BUN/CRE Normal 10-20 [facility] Comment on above: Result Comment: Canc elled via OM: Order Changed Performed By: #### L 100.0100, L500.2500 ####[facility] [address] [place], [address] Calcium Normal 7.6-11.0 [facility] Comment on above: Result Comment: Canc elled via OM: Order Changed Performed By: #### L 100.0100, L500.2500 ####[facility] [address] [place], [address] CL Normal 98-108 [facility] Comment on above: Result Comment: Canc elled via OM: Order Changed Performed By: #### L 100.0100, L500.2500 ####[facility] [address] [place], [address] CO2 Normal 21.0-32.0 [facility] Comment on above: Result Comment: Canc elled via OM: Order Changed Performed By: #### L 100.0100, L500.2500 ####[facility] [address] [place], [address] CREAT,SERUM Normal 0.70-1.20 [facility] Comment on above: Result Comment: Canc elled via OM: Order Changed Performed By: #### L 100.0100, L500.2500 ####[facility] [address] [place], [address] eGFR Normal >60 [facility] Comment on above: Result Comment: Canc elled via OM: Order Changed Performed By: #### L 100.0100, L500.2500 ####[facility] [address] [place], [address] GAP Normal 5-15 [facility] Comment on above: Result Comment: Canc elled via OM: Order Changed Performed By: #### L 100.0100, L500.2500 ####[facility] [address] [place], [address] GLU Normal 70-99 [facility] Comment on above: Result Comment: Canc elled via OM: Order Changed Performed By: #### L 100.0100, L500.2500 ####[facility] [address] [place], [address] Potassium Normal 3.3-5.1 [facility] Comment on above: Result Comment: Canc elled via OM: Order Changed Performed By: #### L 100.0100, L500.2500 ####[facility] [address] [place], [address] Basic Metabolic Profile (BMP) Normal 133-145 [facility] Comment on above: Result Comment: Canc elled via OM: Order Changed Performed By: #### L 100.0100, L500.2500 ####[facility] [address] [place], [address] CBC W/Diff, Automatedon 04-2 Absolute Neut Normal 2.0-7.7 [facility] Comment on above: Result Comment: Canc elled via OM: Order Changed Performed By: #### L 100.0100, L500.2500 ####[facility] [address] [place], [address] HCT Normal 40-54 [facility] Comment on above: Result Comment: Canc elled via OM: Order Changed Performed By: #### L 100.0100, L500.2500 ####[facility] [address] [place], [address] HGB Normal 13.0-16.5 [facility] Comment on above: Result Comment: Canc elled via OM: Order Changed Performed By: #### L 100.0100, L500.2500 ####[facility] [address] [place], [address] MCH Normal 27.0-32.0 [facility] Comment on above: Result Comment: Canc elled via OM: Order Changed Performed By: #### L 100.0100, L500.2500 ####[facility] [address] [place], [address] MCHC Normal 32-36 [facility] Comment on above: Result Comment: Canc elled via OM: Order Changed Performed By: #### L 100.0100, L500.2500 ####[facility] [address] [place], [address] MCV Normal 80-94 [facility] Comment on above: Result Comment: Canc elled via OM: Order Changed Performed By: #### L 100.0100, L500.2500 ####[facility] [address] [place], [address] NEUT% Normal 47-70 [facility] Comment on above: Result Comment: Canc elled via OM: Order Changed Performed By: #### L 100.0100, L500.2500 ####[facility] [address] [place], [address] PLT Normal 150-450 [facility] Comment on above: Result Comment: Canc elled via OM: Order Changed Performed By: #### L 100.0100, L500.2500 ####[facility] [address] [place], [address] RBC Normal 4.6-6.2 [facility] Comment on above: Result Comment: Canc elled via OM: Order Changed Performed By: #### L 100.0100, L500.2500 ####[facility] [address] [place], [address] RDW CV Normal 11.6-14.6 [facility] Comment on above: Result Comment: Canc elled via OM: Order Changed Performed By: #### L 100.0100, L500.2500 ####[facility] [address] [place], [address] RDW SD Normal 35.1-43.9 [facility] Comment on above: Result Comment: Canc elled via OM: Order Changed Performed By: #### L 100.0100, L500.2500 ####[facility] [address] [place], [address] WBC Normal 4.4-11.0 [facility] Comment on above: Result Comment: Canc elled via OM: Order Changed Performed By: #### L 100.0100, L500.2500 ####[facility] [address] [place], [address] Absolute lymphocyte countOrd ered By: Fredis Moon on 06-14-2024 Lymphocytes Auto (Unsp spec) [#/Vol] 1.16 10*3/uL 0.83-4.51 [facility] Absolute neutrophil countOrd ered By: Fredis Moon on 06-14-2024 Neutrophils (Bld) [#/Vol] 3.5 10*3/uL 2.0-7.7 [facility] Anion gap in Serum or Plasma Ordered By: Fredis Moon on 06-14-2024 Anion gap [Moles/Vol] 10 mmol/L 5-15 [facility] Automated lymphocyte count a s percentage of total leukocytesOrdered By: Ferdis Moon on 06-14-2024 Lymphocytes/100 WBC Auto (Unsp spec) 20.5 % [facility] BUN/creatinine ratioOrdered By: Fredis Moon on 06-14-2024 Urea nitrogen/Creatinine [Mass ratio] 19.7 mg/mg 10- [facility] Basic Metabolic Profile (BMP )on 06-14-2024 BUN/CRE 19.7 RATIO Normal - [facility] Comment on above: Performed By: #### L 500.2500, L100.0100 ####[facility] [address] [place], [address] Calcium [Mass/Vol] 8.9 mg/dL Normal 7.6-11.0 [facility] Comment on above: Performed By: #### L 500.2500, L100.0100 ####[facility] [address] [place], [address] Chloride [Moles/Vol] 104 mmol/L Normal 98-108 [facility] Comment on above: Performed By: #### L 500.2500, L100.0100 ####[facility] [address] [place], [address] CO2 [Moles/Vol] 24.5 mmol/L Normal 21.0-32.0 [facility] Comment on above: Performed By: #### L 500.2500, L100.0100 ####[facility] [address] [place], [address] Creatinine [Mass/Vol] 0.91 mg/dL Normal 0.70-1.20 [facility] Comment on above: Performed By: #### L 500.2500, L100.0100 ####[facility] [address] [place], [address] ECRCL 66.65 ml/min Normal 50-250 [facility] Comment on above: Performed By: #### L 500.2500, L100.0100 ####[facility] [address] [place], [address] GAP 10 Normal 5-15 [facility] Comment on above: Performed By: #### L 500.2500, L100.0100 ####[facility] [address] [place], [address] GFR/1.73 sq M.predicted among non-blacks MDRD (S/P/Bld) [Vol rate/Area] 84 mL/min/{1.73_m2} Normal >60 [facility] Comment on above: Result Comment: mL/m in/1.73m2 CKD-EPI Creatinine Equation (2020) Performed By: #### L 500.2500, L100.0100 ####[facility] [address] [place], [address] Glucose [Mass/Vol] 171 mg/dL High 70-99 [facility] Comment on above: Performed By: #### L 500.2500, L100.0100 ####[facility] [address] [place], [address] Potassium [Moles/Vol] 4.4 mmol/L Normal 3.3-5.1 [facility] Comment on above: Performed By: #### L 500.2500, L100.0100 ####[facility] [address] [place], [address] Sodium [Moles/Vol] 139 mmol/L Normal 133-145 [facility] Comment on above: Performed By: #### L 500.2500, L100.0100 ####[facility] [address] [place], [address] Urea nitrogen [Mass/Vol] 18 mg/dL Normal 4-19 [facility] Comment on above: Performed By: #### L 500.2500, L100.0100 ####[facility] [address] [place], [address] Basophil percentageOrdered B y: Fredis Moon on 06-14-2024 Basophils/100 WBC (Bld) 0.9 % 0-1 [facility] Bedside Glucoseon 06-14-2024 FINGERSTICK GLU 171 mg/dL High 74-106 [facility] Comment on above: Result Comment: NIKI ROMERO OF PATIENT CARE PER NURSING PROTOCOL Performed By: #### L 501.080 ####[facility] [address] [place], [address] CBC W/Diff, Automatedon 05-24 Absolute Lymph 1.16 X10 3/uL Normal 0.83-4.51 [facility] Comment on above: Performed By: #### L 500.2500, L100.0100 ####[facility] [address] [place], [address] Absolute Neut 3.5 X10 3/uL Normal 2.0-7.7 [facility] Comment on above: Performed By: #### L 500.2500, L100.0100 ####[facility] [address] [place], [address] Basophils/100 WBC (Bld) 0.9 % Normal 0-1 [facility] Comment on above: Performed By: #### L 500.2500, L100.0100 ####[facility] [address] [place], [address] Eosinophils/100 WBC (Bld) 2.8 % Normal 0-5 [facility] Comment on above: Performed By: #### L 500.2500, L100.0100 ####[facility] [address] [place], [address] Erythrocyte distribution width (RBC) [Ratio] 14.4 % Normal 11.6-14.6 [facility] Comment on above: Performed By: #### L 500.2500, L100.0100 ####[facility] [address] [place], [address] Hematocrit (Bld) [Volume fraction] 33.5 % Low 40-54 [facility] Comment on above: Performed By: #### L 500.2500, L100.0100 ####[facility] [address] [place], [address] Hemoglobin (Bld) [Mass/Vol] 10.9 g/dL Low 13.0-16.5 [facility] Comment on above: Performed By: #### L 500.2500, L100.0100 ####[facility] [address] [place], [address] IG% 0.700 Normal 0.0-0.9 [facility] Comment on above: Result Comment: IG% - Immature Granulocytes (promyelocytes, myelocytes andmetamyelocytes) > 1% indicates that a LEFT SHIFT is Present. Performed By: #### L 500.2500, L100.0100 ####[facility] [address] [place], [address] Lymphocytes/100 WBC (Bld) 20.5 % Normal 19-41 [facility] Comment on above: Performed By: #### L 500.2500, L100.0100 ####[facility] [address] [place], [address] MCH (RBC) [Entitic mass] 28.5 pg Normal 27.0-32.0 [facility] Comment on above: Performed By: #### L 500.2500, L100.0100 ####[facility] [address] [place], [address] MCHC (RBC) [Mass/Vol] 32.5 g/dL Normal 32-36 [facility] Comment on above: Performed By: #### L 500.2500, L100.0100 ####[facility] [address] [place], [address] MCV (RBC) [Entitic vol] 87.5 fL Normal 80-94 [facility] Comment on above: Performed By: #### L 500.2500, L100.0100 ####[facility] [address] [place], [address] Monocytes/100 WBC (Bld) 14.1 % High 0-10 [facility] Comment on above: Performed By: #### L 500.2500, L100.0100 ####[facility] [address] [place], [address] Neutrophils/100 WBC (Bld) 61.0 % Normal 47-70 [facility] Comment on above: Performed By: #### L 500.2500, L100.0100 ####[facility] [address] [place], [address] Nucleated RBC (Bld) [#/Vol] 0 10*3/uL Normal 0-5 [facility] Comment on above: Performed By: #### L 500.2500, L100.0100 ####[facility] [address] [place], [address] Platelet mean volume (Bld) [Entitic vol] 10.0 fL Normal 6.2-12.0 [facility] Comment on above: Performed By: #### L 500.2500, L100.0100 ####[facility] [address] [place], [address] Platelets (Bld) [#/Vol] 166 10*3/uL Normal 150-450 [facility] Comment on above: Performed By: #### L 500.2500, L100.0100 ####[facility] [address] [place], [address] RBC (Bld) [#/Vol] 3.83 10*6/uL Low 4.6-6.2 [facility] Comment on above: Performed By: #### L 500.2500, L100.0100 ####[facility] [address] [place], [address] RDW SD 46.1 fl High 35.1-43.9 [facility] Comment on above: Performed By: #### L 500.2500, L100.0100 ####[facility] [address] [place], [address] WBC (Bld) [#/Vol] 5.7 10*3/uL Normal 4.4-11.0 [facility] Comment on above: Performed By: #### L 500.2500, L100.0100 ####[facility] [address] [place], [address] Carbon dioxide, total [Moles /volume] in Central venous bloodOrdered By: Fredis Moon on 06-14-2024 CO2 [Moles/Vol] 24.5 mmol/L 21.0-32.0 [facility] Chloride assayOrdered By: Mir Moon on 06-14-2024 Chloride [Moles/Vol] 104 mmol/L 98-108 [facility] Eosinophil percentageOrdered By: Fredis Moon 06-14-2024 Eosinophils/100 WBC (Bld) 2.8 % 0-5 [facility] Erythrocyte distribution wid th ratioOrdered By: Fredis Moon 06-14-2024 Erythrocyte distribution width (RBC) [Ratio] 14.4 % 11.6-14.6 [facility] Erythrocyte distribution wid th standard deviationOrdered By: Fredis Moon on 06-14-2024 Erythrocyte distribution width (RBC) [Ratio] 46.1 fl High 35.1-43.9 [facility] Glomerular filtration rate ( GFR) estimation/1.73 sq m using serum, plasma, or whole bOrdered By: Fredis Moon on 06-14-2024 GFR/1.73 sq M.predicted among non-blacks MDRD (S/P/Bld) [Vol rate/Area] 84 mL/min/{1.73_m2} >60 [facility] Comment on above: mL/min/1.73m2 CKD-EP I Creatinine Equation (2021) Glucose measurement at bedsi deOrdered By: Fredis Moon on 06-14-2024 Glucose [Mass/Vol] 171 mg/dL High 74-106 [facility] Comment on above: MANAGEMENT OF PATIEN T CARE PER NURSING PROTOCOL Hematocrit Auto (Bld) [Volum e fraction]Ordered By: Fredis Moon on 06-14-2024 Hematocrit (Bld) [Volume fraction] 33.5 % Low 40-54 [facility] Hemoglobin measurementOrdere d By: Fredis Moon on 06-14-2024 Hemoglobin (Bld) [Mass/Vol] 10.9 g/dL Low 13.0-16.5 [facility] Immature granulocytes/100 WB C Auto (Bld)Ordered By: Fredis Moon 06-14-2024 Immature granulocytes/100 WBC (Bld) 0.700 % 0.0-0.9 [facility] Comment on above: IG% - Immature Granu locytes (promyelocytes, myelocytes and metamyelocytes) > 1% indicates that a LEFT SHIFT is Present. MCV (mean corpuscular volume ) determinationOrdered By: Fredis Moon 06-14-2024 MCV (RBC) [Entitic vol] 87.5 fL 80-94 [facility] Mean corpuscular hemoglobin (MCH) determinationOrdered By: Fredis Moon 06-14-2024 MCH (RBC) [Entitic mass] 28.5 pg 27.0-32.0 [facility] Mean corpuscular hemoglobin concentration (MCHC) determinationOrdered By: Fredis Moon 06-14-2024 MCHC (RBC) [Mass/Vol] 32.5 g/dL 32-36 [facility] Mean platelet volume determi nationOrdered By: Fredis Moon 06-14-2024 Platelet mean volume (Bld) [Entitic vol] 10.0 fL 6.2-12.0 [facility] Monocyte percentageOrdered B y: Fredis Moon on 06-14-2024 Monocytes/100 WBC (Bld) 14.1 % High 0-10 [facility] Neutrophil percentageOrdered By: Fredis Moon 06-14-2024 Neutrophils/100 WBC (Bld) 61.0 % 47-70 [facility] Nucleated red blood cell per centageOrdered By: Fredis Moon 5 Nucleated RBC/100 WBC (Bld) [Ratio] 0 % 0-5 [facility] Platelet countOrdered By: Mir Moon on 06-14-2024 Platelets (Bld) [#/Vol] 166 10*3/uL 150-450 [facility] Potassium measurement (mass/ volume)Ordered By: Fredis Moon on 06-14-2024 Potassium (Unsp spec) [Mass/Vol] 4.4 mmol/L 3.3-5.1 [facility] RBC Auto (Bld) [#/Vol]Ordere d By: Fredis Moon on 06-14-2024 RBC (Bld) [#/Vol] 3.83 10*6/uL Low 4.6-6.2 [facility] Serum creatinine measurement (mass/volume)Ordered By: Fredis Moon on 06-14-2024 Creatinine [Mass/Vol] 0.91 mg/dL 0.70-1.20 [facility] Serum glucose measurement (m ass/volume)Ordered By: Fredis Moon on 06-14-2024 Glucose [Mass/Vol] 171 mg/dL High 70-99 [facility] Serum or plasma calcium mt urement (mass/volume)Ordered By: Fredis Moon on 06-14-2024 Calcium [Mass/Vol] 8.9 mg/dL 7.6-11.0 [facility] Serum or plasma urea nitroge n measurement (mass/volume)Ordered By: Fredis Moon on 06-14-2024 Urea nitrogen [Mass/Vol] 18 mg/dL 4- [facility] Sodium levelOrdered By: Fredis Moon on 06-14-2024 Sodium [Moles/Vol] 139 mmol/L 133-145 [facility] White blood cell (WBC) count Ordered By: Fredis Moon on 06-14-2024 WBC (Bld) [#/Vol] 5.7 10*3/uL 4.4-11.0 [facility] Basic Metabolic Profile (BMP )on 06-13-2024 BUN Normal - [facility] Comment on above: Result Comment: Canc elled via OM: Order Changed Performed By: #### L 500.2500, L100.0100 ####[facility] [address] [place], [address] BUN/CRE Normal 10-20 [facility] Comment on above: Result Comment: Canc elled via OM: Order Changed Performed By: #### L 500.2500, L100.0100 ####[facility] [address] [place], [address] Calcium Normal 7.6-11.0 [facility] Comment on above: Result Comment: Canc elled via OM: Order Changed Performed By: #### L 500.2500, L100.0100 ####[facility] [address] [place], [address] CL Normal 98-108 [facility] Comment on above: Result Comment: Canc elled via OM: Order Changed Performed By: #### L 500.2500, L100.0100 ####[facility] [address] [place], [address] CO2 Normal 21.0-32.0 [facility] Comment on above: Result Comment: Canc elled via OM: Order Changed Performed By: #### L 500.2500, L100.0100 ####[facility] [address] [place], [address] CREAT,SERUM Normal 0.70-1.20 [facility] Comment on above: Result Comment: Canc elled via OM: Order Changed Performed By: #### L 500.2500, L100.0100 ####[facility] [address] [place], [address] eGFR Normal >60 [facility] Comment on above: Result Comment: Canc elled via OM: Order Changed Performed By: #### L 500.2500, L100.0100 ####[facility] [address] [place], [address] GAP Normal 5-15 [facility] Comment on above: Result Comment: Canc elled via OM: Order Changed Performed By: #### L 500.2500, L100.0100 ####[facility] [address] [place], [address] GLU Normal 70-99 [facility] Comment on above: Result Comment: Canc elled via OM: Order Changed Performed By: #### L 500.2500, L100.0100 ####[facility] [address] [place], [address] Potassium Normal 3.3-5.1 [facility] Comment on above: Result Comment: Canc elled via OM: Order Changed Performed By: #### L 500.2500, L100.0100 ####[facility] [address] [place], [address] Basic Metabolic Profile (BMP) Normal 133-145 [facility] Comment on above: Result Comment: Canc elled via OM: Order Changed Performed By: #### L 500.2500, L100.0100 ####[facility] [address] [place], [address] Bedside Glucoseon 06-13-2024 FINGERSTICK GLU 183 mg/dL High 74-106 [facility] Comment on above: Result Comment: NIKI GEMENT OF PATIENT CARE PER NURSING PROTOCOL Performed By: #### L 501.080 ####[facility] [address] [place], [address] FINGERSTICK GLU 147 mg/dL High 74-106 [facility] Comment on above: Result Comment: NIKI GEMENT OF PATIENT CARE PER NURSING PROTOCOL Performed By: #### L 501.080 ####[facility] [address] [place], [address] FINGERSTICK GLU 214 mg/dL High 74-106 [facility] Comment on above: Result Comment: NIKI GEMENT OF PATIENT CARE PER NURSING PROTOCOL Performed By: #### L 501.080 ####[facility] [address] [place], [address] FINGERSTICK GLU 135 mg/dL High 74-106 [facility] Comment on above: Result Comment: NIKI ROMERO OF PATIENT CARE PER NURSING PROTOCOL Performed By: #### L 501.080 ####[facility] [address] [place], [address] CBC W/Diff, Automatedon 04-2 Absolute Neut Normal 2.0-7.7 [facility] Comment on above: Result Comment: Canc elled via OM: Order Changed Performed By: #### L 500.2500, L100.0100 ####[facility] [address] [place], [address] HCT Normal 40-54 [facility] Comment on above: Result Comment: Canc elled via OM: Order Changed Performed By: #### L 500.2500, L100.0100 ####[facility] [address] [place], [address] HGB Normal 13.0-16.5 [facility] Comment on above: Result Comment: Canc elled via OM: Order Changed Performed By: #### L 500.2500, L100.0100 ####[facility] [address] [place], [address] MCH Normal 27.0-32.0 [facility] Comment on above: Result Comment: Canc elled via OM: Order Changed Performed By: #### L 500.2500, L100.0100 ####[facility] [address] [place], [address] MCHC Normal 32-36 [facility] Comment on above: Result Comment: Canc elled via OM: Order Changed Performed By: #### L 500.2500, L100.0100 ####[facility] [address] [place], [address] MCV Normal 80-94 [facility] Comment on above: Result Comment: Canc elled via OM: Order Changed Performed By: #### L 500.2500, L100.0100 ####[facility] [address] [place], [address] NEUT% Normal 47-70 [facility] Comment on above: Result Comment: Canc elled via OM: Order Changed Performed By: #### L 500.2500, L100.0100 ####[facility] [address] [place], [address] PLT Normal 150-450 [facility] Comment on above: Result Comment: Canc elled via OM: Order Changed Performed By: #### L 500.2500, L100.0100 ####[facility] [address] [place], [address] RBC Normal 4.6-6.2 [facility] Comment on above: Result Comment: Canc elled via OM: Order Changed Performed By: #### L 500.2500, L100.0100 ####[facility] [address] [place], [address] RDW CV Normal 11.6-14.6 [facility] Comment on above: Result Comment: Canc elled via OM: Order Changed Performed By: #### L 500.2500, L100.0100 ####[facility] [address] [place], [address] RDW SD Normal 35.1-43.9 [facility] Comment on above: Result Comment: Canc elled via OM: Order Changed Performed By: #### L 500.2500, L100.0100 ####[facility] [address] [place], [address] WBC Normal 4.4-11.0 [facility] Comment on above: Result Comment: Canc elled via OM: Order Changed Performed By: #### L 500.2500, L100.0100 ####[facility] [address] [place], [address] Bedside Glucoseon 06-12-2024 FINGERSTICK GLU 199 mg/dL High 74-106 [facility] Comment on above: Result Comment: NIKI GEMENT OF PATIENT CARE PER NURSING PROTOCOL Performed By: #### L 501.080 ####[facility] [address] [place], [address] FINGERSTICK GLU 107 mg/dL High 74-106 [facility] Comment on above: Result Comment: NIKI GEMENT OF PATIENT CARE PER NURSING PROTOCOL Performed By: #### L 501.080 ####[facility] [address] [place], [address] FINGERSTICK GLU 200 mg/dL High [address] [place] [address] Comment on above: Result Comment: NIKI GEMENT OF PATIENT CARE PER NURSING PROTOCOL Performed By: #### L 501.080 ####[facility] [address] [place], [address] FINGERSTICK GLU 177 mg/dL High -[address] [place] [address] Comment on above: Result Comment: NIKI GEMENT OF PATIENT CARE PER NURSING PROTOCOL Performed By: #### L 501.080 ####[facility] [address] [place], [address] Bedside Glucoseon 06-11-2024 FINGERSTICK GLU 221 mg/dL High -106 [facility] Comment on above: Result Comment: NIKI GEMENT OF PATIENT CARE PER NURSING PROTOCOL Performed By: #### L 501.080 ####[facility] [address] [place], [address] FINGERSTICK GLU 190 mg/dL High [address] [place] [address] Comment on above: Result Comment: NIKI GEMENT OF PATIENT CARE PER NURSING PROTOCOL Performed By: #### L 501.080 ####[facility] [address] [place], [address] FINGERSTICK GLU 193 mg/dL High -106 [facility] Comment on above: Result Comment: NIKI GEMENT OF PATIENT CARE PER NURSING PROTOCOL Performed By: #### L 501.080 ####[facility] [address] [place], [address] FINGERSTICK GLU 195 mg/dL High [address] [place] [address] Comment on above: Result Comment: NIKI GEMENT OF PATIENT CARE PER NURSING PROTOCOL Performed By: #### L 501.080 ####[facility] [address] [place], [address] Bedside Glucoseon 06-10-2024 FINGERSTICK GLU 187 mg/dL High [address] [place] [address] Comment on above: Result Comment: NIKI GEMENT OF PATIENT CARE PER NURSING PROTOCOL Performed By: #### L 501.080 ####[facility] [address] [place], [address] FINGERSTICK GLU 149 mg/dL High [address] [place] [address] Comment on above: Result Comment: NIKI GEMENT OF PATIENT CARE PER NURSING PROTOCOL Performed By: #### L 501.080 ####[facility] [address] [place], [address] FINGERSTICK GLU 200 mg/dL High [address] [place] [address] Comment on above: Result Comment: NIKI GEMENT OF PATIENT CARE PER NURSING PROTOCOL Performed By: #### L 501.080 ####[facility] [address] [place], [address] FINGERSTICK GLU 189 mg/dL High [address] [place] [address] Comment on above: Result Comment: NIKI GEMENT OF PATIENT CARE PER NURSING PROTOCOL Performed By: #### L 501.080 ####[facility] [address] [place], [address] Bedside Glucoseon 5 FINGERSTICK GLU 195 mg/dL High [address] [place] [address] Comment on above: Result Comment: NIKI GEMENT OF PATIENT CARE PER NURSING PROTOCOL Performed By: #### L 501.080 ####[facility] [address] [place], [address] FINGERSTICK GLU 236 mg/dL High [address] [place] [address] Comment on above: Result Comment: NIKI GEMENT OF PATIENT CARE PER NURSING PROTOCOL Performed By: #### L 501.080 ####[facility] [address] [place], [address] FINGERSTICK GLU 183 mg/dL High -106 [facility] Comment on above: Result Comment: NIKI GEMENT OF PATIENT CARE PER NURSING PROTOCOL Performed By: #### L 501.080 ####[facility] [address] [place], [address] FINGERSTICK GLU 178 mg/dL High [address] [place] [address] Comment on above: Result Comment: NIKI GEMENT OF PATIENT CARE PER NURSING PROTOCOL Performed By: #### L 501.080 ####[facility] [address] [place], [address] Bedside Glucoseon 06-08-2024 FINGERSTICK GLU 241 mg/dL High [address] [place] [address] Comment on above: Result Comment: NIKI GEMENT OF PATIENT CARE PER NURSING PROTOCOL Performed By: #### L 501.080 ####[facility] [address] [place], [address] FINGERSTICK GLU 172 mg/dL High -[address] [place] [address] Comment on above: Result Comment: NIKI GEMENT OF PATIENT CARE PER NURSING PROTOCOL Performed By: #### L 501.080 ####[facility] [address] [place], [address] FINGERSTICK GLU 162 mg/dL High [address] [place] [address] Comment on above: Result Comment: NIKI GEMENT OF PATIENT CARE PER NURSING PROTOCOL Performed By: #### L 501.080 ####[facility] [address] [place], [address] FINGERSTICK GLU 144 mg/dL High 74-106 [facility] Comment on above: Result Comment: NIKI ROMERO OF PATIENT CARE PER NURSING PROTOCOL Performed By: #### L 501.080 ####[facility] [address] [place], [address] Gl[facility] at [facility] deOrdered By: Fredis Moon on 06-08-2024 Bedside Glucose (Misc Panel) 144 mg/dL High 74-106 [facility] Comment on above: MANAGEMENT OF PATIEN T CARE PER NURSING PROTOCOL Absolute neutrophil countOrd ered By: Fredis Moon on 06-07-2024 Neutrophils (Bld) [#/Vol] 2.9 10*3/uL 2.0-7.7 [facility] Anion gap in Serum or Plasma Ordered By: Fredis Moon on 06-07-2024 Anion gap [Moles/Vol] 11 mmol/L 5-15 [facility] BUN/creatinine ratioOrdered By: Fredis Moon on 06-07-2024 Urea nitrogen/Creatinine [Mass ratio] 20.8 mg/mg High 10-20 [facility] Basic Metabolic Profile (BMP )on 06-07-2024 BUN/CRE 20.8 RATIO High 10-20 [facility] Comment on above: Performed By: #### L 500.2500, L100.0100 ####[facility] [address] [place], [address] Calcium [Mass/Vol] 8.6 mg/dL Normal 7.6-11.0 [facility] Comment on above: Performed By: #### L 500.2500, L100.0100 ####[facility] [address] [place], [address] Chloride [Moles/Vol] 105 mmol/L Normal 98-108 [facility] Comment on above: Performed By: #### L 500.2500, L100.0100 ####[facility] [address] [place], [address] CO2 [Moles/Vol] 21.6 mmol/L Normal 21.0-32.0 [facility] Comment on above: Performed By: #### L 500.2500, L100.0100 ####[facility] [address] [place], [address] Creatinine [Mass/Vol] 0.95 mg/dL Normal 0.70-1.20 [facility] Comment on above: Performed By: #### L 500.2500, L100.0100 ####[facility] [address] [place], [address] ECRCL 63.63 ml/min Normal 50-250 [facility] Comment on above: Performed By: #### L 500.2500, L100.0100 ####[facility] [address] [place], [address] GAP 11 Normal 5-15 [facility] Comment on above: Performed By: #### L 500.2500, L100.0100 ####[facility] [address] [place], [address] GFR/1.73 sq M.predicted among non-blacks MDRD (S/P/Bld) [Vol rate/Area] 80 mL/min/{1.73_m2} Normal >60 [facility] Comment on above: Result Comment: mL/m in/1.73m2 CKD-EPI Creatinine Equation (2020) Performed By: #### L 500.2500, L100.0100 ####[facility] [address] [place], [address] Glucose [Mass/Vol] 157 mg/dL High 70-99 [facility] Comment on above: Performed By: #### L 500.2500, L100.0100 ####[facility] [address] [place], [address] Potassium [Moles/Vol] 4.3 mmol/L Normal 3.3-5.1 [facility] Comment on above: Performed By: #### L 500.2500, L100.0100 ####[facility] [address] [place], [address] Sodium [Moles/Vol] 138 mmol/L Normal 133-145 [facility] Comment on above: Performed By: #### L 500.2500, L100.0100 ####[facility] [address] [place], [address] Urea nitrogen [Mass/Vol] 20 mg/dL High 4-19 [facility] Comment on above: Performed By: #### L 500.2500, L100.0100 ####[facility] [address] [place], [address] Basophil percentageOrdered B y: Fredis Moon on 06-07-2024 Basophils/100 WBC (Bld) 0.8 % 0-1 [facility] Bedside Glucoseon 06-07-2024 FINGERSTICK GLU 179 mg/dL High 74-106 [facility] Comment on above: Result Comment: NIKI GEMENT OF PATIENT CARE PER NURSING PROTOCOL Performed By: #### L 501.080 ####[facility] [address] [place], [address] FINGERSTICK GLU 151 mg/dL High 74-106 [facility] Comment on above: Result Comment: NIKI GEMENT OF PATIENT CARE PER NURSING PROTOCOL Performed By: #### L 501.080 ####[facility] [address] [place], [address] FINGERSTICK GLU 219 mg/dL High 74-106 [facility] Comment on above: Result Comment: NIKI GEMENT OF PATIENT CARE PER NURSING PROTOCOL Performed By: #### L 501.080 ####[facility] [address] [place], [address] FINGERSTICK GLU 144 mg/dL High 74-106 [facility] Comment on above: Result Comment: NIKI GEMENT OF PATIENT CARE PER NURSING PROTOCOL Performed By: #### L 501.080 ####[facility] [address] [place], [address] CBC W/Diff, Automatedon 05-23 Absolute Lymph 1.28 X10 3/uL Normal 0.83-4.51 [facility] Comment on above: Performed By: #### L 100.0100 ####[facility] [address] [place], [address] Absolute Neut 2.9 X10 3/uL Normal 2.0-7.7 [facility] Comment on above: Performed By: #### L 100.0100 ####[facility] [address] [place], [address] Basophils/100 WBC (Bld) 0.8 % Normal 0-1 [facility] Comment on above: Performed By: #### L 100.0100 ####[facility] [address] [place], [address] Eosinophils/100 WBC (Bld) 4.3 % Normal 0-5 [facility] Comment on above: Performed By: #### L 100.0100 ####[facility] [address] [place], [address] Erythrocyte distribution width (RBC) [Ratio] 14.6 % Normal 11.6-14.6 [facility] Comment on above: Performed By: #### L 100.0100 ####[facility] [address] [place], [address] Hematocrit (Bld) [Volume fraction] 31.7 % Low 40-54 [facility] Comment on above: Performed By: #### L 100.0100 ####[facility] [address] [place], [address] Hemoglobin (Bld) [Mass/Vol] 10.3 g/dL Low 13.0-16.5 [facility] Comment on above: Performed By: #### L 100.0100 ####[facility] [address] [place], [address] IG% 0.800 Normal 0.0-0.9 [facility] Comment on above: Result Comment: IG% - Immature Granulocytes (promyelocytes, myelocytes andmetamyelocytes) > 1% indicates that a LEFT SHIFT is Present. Performed By: #### L 100.0100 ####[facility] [address] [place], [address] Lymphocytes/100 WBC (Bld) 25.0 % Normal 19-41 [facility] Comment on above: Performed By: #### L 100.0100 ####[facility] [address] [place], [address] MCH (RBC) [Entitic mass] 28.2 pg Normal 27.0-32.0 [facility] Comment on above: Performed By: #### L 100.0100 ####[facility] [address] [place], [address] MCHC (RBC) [Mass/Vol] 32.5 g/dL Normal 32-36 [facility] Comment on above: Performed By: #### L 100.0100 ####[facility] [address] [place], [address] MCV (RBC) [Entitic vol] 86.8 fL Normal 80-94 [facility] Comment on above: Performed By: #### L 100.0100 ####[facility] [address] [place], [address] Monocytes/100 WBC (Bld) 13.3 % High 0-10 [facility] Comment on above: Performed By: #### L 100.0100 ####[facility] [address] [place], [address] Neutrophils/100 WBC (Bld) 55.8 % Normal 47-70 [facility] Comment on above: Performed By: #### L 100.0100 ####[facility] [address] [place], [address] Nucleated RBC (Bld) [#/Vol] 0 10*3/uL Normal 0-5 [facility] Comment on above: Performed By: #### L 100.0100 ####[facility] [address] [place], [address] Platelet mean volume (Bld) [Entitic vol] 9.6 fL Normal 6.2-12.0 [facility] Comment on above: Performed By: #### L 100.0100 ####[facility] [address] [place], [address] Platelets (Bld) [#/Vol] 169 10*3/uL Normal 150-450 [facility] Comment on above: Performed By: #### L 100.0100 ####[facility] [address] [place], [address] RBC (Bld) [#/Vol] 3.65 10*6/uL Low 4.6-6.2 [facility] Comment on above: Performed By: #### L 100.0100 ####[facility] [address] [place], [address] RDW SD 46.5 fl High 35.1-43.9 [facility] Comment on above: Performed By: #### L 100.0100 ####[facility] [address] [place], [address] WBC (Bld) [#/Vol] 5.1 10*3/uL Normal 4.4-11.0 [facility] Comment on above: Performed By: #### L 100.0100 ####[facility] [address] [place], [address] Absolute Neut Normal 2.0-7.7 [facility] Comment on above: Result Comment: BARC ODE ERROR. REORDERED Performed By: #### L 500.2500, L100.0100 ####[facility] [address] [place], [address] HCT Normal 40-54 [facility] Comment on above: Result Comment: BARC ODE ERROR. REORDERED Performed By: #### L 500.2500, L100.0100 ####[facility] [address] [place], [address] HGB Normal 13.0-16.5 [facility] Comment on above: Result Comment: BARC ODE ERROR. REORDERED Performed By: #### L 500.2500, L100.0100 ####[facility] [address] [place], [address] MCH Normal 27.0-32.0 [facility] Comment on above: Result Comment: BARC ODE ERROR. REORDERED Performed By: #### L 500.2500, L100.0100 ####[facility] [address] [place], [address] MCHC Normal 32-36 [facility] Comment on above: Result Comment: BARC ODE ERROR. REORDERED Performed By: #### L 500.2500, L100.0100 ####[facility] [address] [place], [address] MCV Normal 80-94 [facility] Comment on above: Result Comment: BARC ODE ERROR. REORDERED Performed By: #### L 500.2500, L100.0100 ####[facility] [address] [place], [address] NEUT% Normal 47-70 [facility] Comment on above: Result Comment: BARC ODE ERROR. REORDERED Performed By: #### L 500.2500, L100.0100 ####[facility] [address] [place], [address] PLT Normal 150-450 [facility] Comment on above: Result Comment: BARC ODE ERROR. REORDERED Performed By: #### L 500.2500, L100.0100 ####[facility] [address] [place], [address] RBC Normal 4.6-6.2 [facility] Comment on above: Result Comment: BARC ODE ERROR. REORDERED Performed By: #### L 500.2500, L100.0100 ####[facility] [address] [place], [address] RDW CV Normal 11.6-14.6 [facility] Comment on above: Result Comment: BARC ODE ERROR. REORDERED Performed By: #### L 500.2500, L100.0100 ####[facility] [address] [place], [address] RDW SD Normal 35.1-43.9 [facility] Comment on above: Result Comment: BARC ODE ERROR. REORDERED Performed By: #### L 500.2500, L100.0100 ####[facility] [address] [place], [address] WBC Normal 4.4-11.0 [facility] Comment on above: Result Comment: BARC ODE ERROR. REORDERED Performed By: #### L 500.2500, L100.0100 ####[facility] [address] [place], [address] Carbon dioxide, total [Moles /volume] in Central venous bloodOrdered By: Fredis Moon on 06-07-2024 CO2 [Moles/Vol] 21.6 mmol/L 21.0-32.0 [facility] Chloride assayOrdered By: Mir Moon on 06-07-2024 Chloride [Moles/Vol] 105 mmol/L 98-108 [facility] Eosinophil percentageOrdered By: Fredis Moon on 06-07-2024 Eosinophils/100 WBC (Bld) 4.3 % 0-5 [facility] Erythrocyte distribution wid th (RBC) [Ratio]Ordered By: [facility] 06-07-2024 Erythrocyte distribution width (RBC) [Entitic vol] 46.5 fL High 35.1-43.9 [facility] Erythrocyte distribution wid th ratioOrdered By: [facility] 06-07-2024 Erythrocyte distribution width (RBC) [Ratio] 14.6 % 11.6-14.6 [facility] Estimation of creatinine melissa aranceOrdered By: [facility]24 Estimated Creatinine Clearance Calc 63.63 ml/min 50-250 [facility] GFR/1.73 sq M.predicted [place] g non-blacks MDRD (S/P/Bld) [Vol rate/Area]Ordered By: [facility] 06-07-2024 Estimated GFR (MDRD) Non-Af Amer 80 >60 [facility] Comment on above: mL/min/1.73m2 CKD-EP I Creatinine Equation (2020) Hematocrit Auto (Bld) [Volum e fraction]Ordered By: [facility] 06-07-2024 Hematocrit (Bld) [Volume fraction] 31.7 % Low 40-54 [facility] Hemoglobin measurementOrdere d By: [facility] 06-07-2024 Hemoglobin (Bld) [Mass/Vol] 10.3 g/dL Low 13.0-16.5 [facility] Immature granulocytes/100 WB C Auto (Bld)Ordered By: [facility] 06-07-2024 Immature granulocytes/100 WBC (Bld) 0.800 % 0.0-0.9 [facility] Comment on above: IG% - Immature Granu locytes (promyelocytes, myelocytes and metamyelocytes) > 1% indicates that a LEFT SHIFT is Present. Lymphocytes Auto (Unsp spec) [#/Vol]Ordered By: [facility] 06-07-2024 Lymphocytes (Bld) [#/Vol] 1.28 10*3/uL 0.83-4.51 [facility] Lymphocytes/100 WBC Auto (Un sp spec)Ordered By: [facility] 06-07-2024 Lymphocytes/100 WBC (Bld) 25.0 % 19-41 [facility] MCV (mean corpuscular volume ) determinationOrdered By: Fredis Moon on 06-07-2024 MCV (RBC) [Entitic vol] 86.8 fL 80-94 [facility] Mean corpuscular hemoglobin (MCH) determinationOrdered By: Fredis Moon on 06-07-2024 MCH (RBC) [Entitic mass] 28.2 pg 27.0-32.0 [facility] Mean corpuscular hemoglobin concentration (MCHC) determinationOrdered By: Fredis Moon on 06-07-2024 MCHC (RBC) [Mass/Vol] 32.5 g/dL 32-36 [facility] Mean platelet volume determi nationOrdered By: Fredis Moon on 06-07-2024 Platelet mean volume (Bld) [Entitic vol] 9.6 fL 6.2-12.0 [facility] Monocyte percentageOrdered B y: Fredis Moon on 06-07-2024 Monocytes/100 WBC (Bld) 13.3 % High 0-10 [facility] Neutrophil percentageOrdered By: Fredis Moon on 06-07-2024 Neutrophils/100 WBC (Bld) 55.8 % 47-70 [facility] Nucleated red blood cell per centageOrdered By: Fredis Moon 06-07-2024 Nucleated RBC/100 WBC (Bld) [Ratio] 0 % 0-5 [facility] Platelet countOrdered By: Mir Moon on 06-07-2024 Platelets (Bld) [#/Vol] 169 10*3/uL 150-450 [facility] Potassium (Unsp spec) [Mass/ Vol]Ordered By: Fredis Moon on 06-07-2024 Potassium [Moles/Vol] 4.3 mmol/L 3.3-5.1 [facility] RBC Auto (Bld) [#/Vol]Ordere d By: Fredis Moon on 06-07-2024 RBC (Bld) [#/Vol] 3.65 10*6/uL Low 4.6-6.2 [facility] Serum creatinine measurement (mass/volume)Ordered By: Fredis Moon on 06-07-2024 Creatinine [Mass/Vol] 0.95 mg/dL 0.70-1.20 [facility] Serum glucose measurement (m ass/volume)Ordered By: Fredis Moon on 06-07-2024 Glucose [Mass/Vol] 157 mg/dL High 70-99 [facility] Serum or plasma calcium mt urement (mass/volume)Ordered By: Fredis Moon on 06-07-2024 Calcium [Mass/Vol] 8.6 mg/dL 7.6-11.0 [facility] Serum or plasma urea nitroge n measurement (mass/volume)Ordered By: Fredis Moon on 06-07-2024 Urea nitrogen [Mass/Vol] 20 mg/dL High 4-19 [facility] Sodium levelOrdered By: Fredis Moon on 06-07-2024 Sodium [Moles/Vol] 138 mmol/L 133-145 [facility] White blood cell (WBC) count Ordered By: Fredis Moon on 06-07-2024 WBC (Bld) [#/Vol] 5.1 10*3/uL 4.4-11.0 [facility] Basic Metabolic Profile (BMP )on 06-06-2024 BUN Normal -19 [facility] Comment on above: Result Comment: Canc elled via OM: Order Changed Performed By: #### L 100.0100, L500.2500 ####[facility] [address] [place], [address] BUN/CRE Normal 10-20 [facility] Comment on above: Result Comment: Canc elled via OM: Order Changed Performed By: #### L 100.0100, L500.2500 ####[facility] [address] [place], [address] Calcium Normal 7.6-11.0 [facility] Comment on above: Result Comment: Canc elled via OM: Order Changed Performed By: #### L 100.0100, L500.2500 ####[facility] [address] [place], [address] CL Normal 98-108 [facility] Comment on above: Result Comment: Canc elled via OM: Order Changed Performed By: #### L 100.0100, L500.2500 ####[facility] [address] [place], [address] CO2 Normal 21.0-32.0 [facility] Comment on above: Result Comment: Canc elled via OM: Order Changed Performed By: #### L 100.0100, L500.2500 ####[facility] [address] [place], [address] CREAT,SERUM Normal 0.70-1.20 [facility] Comment on above: Result Comment: Canc elled via OM: Order Changed Performed By: #### L 100.0100, L500.2500 ####[facility] [address] [place], [address] eGFR Normal >60 [facility] Comment on above: Result Comment: Canc elled via OM: Order Changed Performed By: #### L 100.0100, L500.2500 ####[facility] [address] [place], [address] GAP Normal 5-15 [facility] Comment on above: Result Comment: Canc elled via OM: Order Changed Performed By: #### L 100.0100, L500.2500 ####[facility] [address] [place], [address] GLU Normal 70-99 [facility] Comment on above: Result Comment: Canc elled via OM: Order Changed Performed By: #### L 100.0100, L500.2500 ####[facility] [address] [place], [address] Potassium Normal 3.3-5.1 [facility] Comment on above: Result Comment: Canc elled via OM: Order Changed Performed By: #### L 100.0100, L500.2500 ####[facility] [address] [place], [address] Basic Metabolic Profile (BMP) Normal 133-145 [facility] Comment on above: Result Comment: Canc elled via OM: Order Changed Performed By: #### L 100.0100, L500.2500 ####[facility] [address] [place], [address] Bedside Glucoseon 06-06-2024 FINGERSTICK GLU 175 mg/dL High 74-106 [facility] Comment on above: Result Comment: NIKI GEMENT OF PATIENT CARE PER NURSING PROTOCOL Performed By: #### L 501.080 ####[facility] [address] [place], [address] FINGERSTICK GLU 137 mg/dL High 74-106 [facility] Comment on above: Result Comment: NIKI GEMENT OF PATIENT CARE PER NURSING PROTOCOL Performed By: #### L 501.080 ####[facility] [address] [place], [address] FINGERSTICK GLU 156 mg/dL High 74-106 [facility] Comment on above: Result Comment: NIKI GEMENT OF PATIENT CARE PER NURSING PROTOCOL Performed By: #### L 501.080 ####[facility] [address] [place], [address] FINGERSTICK GLU 175 mg/dL High 74-106 [facility] Comment on above: Result Comment: NIKI GEMENT OF PATIENT CARE PER NURSING PROTOCOL Performed By: #### L 501.080 ####[facility] [address] [place], [address] CBC W/Diff, Automatedon 05-23 PATH REV Reviewed Normal [facility] Comment on above: Result Comment: SEE REPORT IN PATIENT'S EMR AMENDED REPORT 06/06/24 1507 PATH REV previously reported as: June indu Performed By: #### L 100.0100, L500.2500 ####[facility] [address] [place], [address] Absolute Neut Normal 2.0-7.7 [facility] Comment on above: Result Comment: Canc elled via OM: Order Changed Performed By: #### L 100.0100, L500.2500 ####[facility] [address] [place], [address] HCT Normal 40-54 [facility] Comment on above: Result Comment: Canc elled via OM: Order Changed Performed By: #### L 100.0100, L500.2500 ####[facility] [address] [place], [address] HGB Normal 13.0-16.5 [facility] Comment on above: Result Comment: Canc elled via OM: Order Changed Performed By: #### L 100.0100, L500.2500 ####[facility] [address] [place], [address] MCH Normal 27.0-32.0 [facility] Comment on above: Result Comment: Canc elled via OM: Order Changed Performed By: #### L 100.0100, L500.2500 ####[facility] [address] [place], [address] MCHC Normal 32-36 [facility] Comment on above: Result Comment: Canc elled via OM: Order Changed Performed By: #### L 100.0100, L500.2500 ####[facility] [address] [place], [address] MCV Normal 80-94 [facility] Comment on above: Result Comment: Canc elled via OM: Order Changed Performed By: #### L 100.0100, L500.2500 ####[facility] [address] [place], [address] NEUT% Normal 47-70 [facility] Comment on above: Result Comment: Canc elled via OM: Order Changed Performed By: #### L 100.0100, L500.2500 ####[facility] [address] [place], [address] PLT Normal 150-450 [facility] Comment on above: Result Comment: Canc elled via OM: Order Changed Performed By: #### L 100.0100, L500.2500 ####[facility] [address] [place], [address] RBC Normal 4.6-6.2 [facility] Comment on above: Result Comment: Canc elled via OM: Order Changed Performed By: #### L 100.0100, L500.2500 ####[facility] [address] [place], [address] RDW CV Normal 11.6-14.6 [facility] Comment on above: Result Comment: Canc elled via OM: Order Changed Performed By: #### L 100.0100, L500.2500 ####[facility] [address] [place], [address] RDW SD Normal 35.1-43.9 [facility] Comment on above: Result Comment: Canc elled via OM: Order Changed Performed By: #### L 100.0100, L500.2500 ####[facility] [address] [place], [address] WBC Normal 4.4-11.0 [facility] Comment on above: Result Comment: Canc elled via OM: Order Changed Performed By: #### L 100.0100, L500.2500 ####[facility] [address] [place], [address] Progress Noteon 06-06-2024 Progress Note 06/06/24 1104 BPCI Late Drop? Program late drop? No BPCI Outreach Assessment Selection Which outreach assessment are you completing? 21 Day BPCI - 21 Day Outreach Did patient answer phone call? Yes Have you noticed any negative changes in your condition? (Patient remains at rehab-[facility] with plans to get discharged home soon) Any questions about your condition you are unsure about that I can help clarify? Yes (Discussed rehab and progress made, important follow up appointments when home, surgery site, diabetes management) Normal [facility] Bedside Glucoseon 06-05-2024 FINGERSTICK GLU 176 mg/dL High 74-106 [facility] Comment on above: Result Comment: NIKI GEMENT OF PATIENT CARE PER NURSING PROTOCOL Performed By: #### L 501.080 ####[facility] [address] [place], [address] FINGERSTICK GLU 135 mg/dL High 74-106 [facility] Comment on above: Result Comment: NIKI GEMENT OF PATIENT CARE PER NURSING PROTOCOL Performed By: #### L 501.080 ####[facility] [address] [place], [address] FINGERSTICK GLU 205 mg/dL High -106 [facility] Comment on above: Result Comment: NIKI GEMENT OF PATIENT CARE PER NURSING PROTOCOL Performed By: #### L 501.080 ####[facility] [address] [place], [address] FINGERSTICK GLU 193 mg/dL High [facility]106 [facility] Comment on above: Result Comment: NIKI GEMENT OF PATIENT CARE PER NURSING PROTOCOL Performed By: #### L 501.080 ####[facility] [address] [place], [address] Venous duplex ultrasound rep ortOrdered By: Daysi Monterroso on 06-05-2024 US Vein [facility] [address] [place] [address] Venous Duplex US, Unilateral 06/02/24 1112 MR#: [id number] Acct: [id number] Name: THRASHERJoaquin NIMISHA Rep #:[id number] : 1940 84 From: Daysi Clayton [...] Moon Chi Performed By: Cee Huntley RVT 06/05/2447 Date _ Daysi Monterroso MD CC: Dr. Fredis Moon MD ~ Date Dictated: 06/02/24 1112 Date Transcribed: 06/05/24746 Director Of Automation: Signed [facility] Work Phone: Bedside Glucoseon 06-04-2024 FINGERSTICK GLU 232 mg/dL High 74-106 [facility] Comment on above: Result Comment: NIKI GEMENT OF PATIENT CARE PER NURSING PROTOCOL Performed By: #### L 501.080 ####[facility] [address] [place], [address] FINGERSTICK GLU 149 mg/dL High 74-106 [facility] Comment on above: Result Comment: NIKI GEMENT OF PATIENT CARE PER NURSING PROTOCOL Performed By: #### L 501.080 ####[facility] [address] [place], [address] FINGERSTICK GLU 202 mg/dL High 74-106 [facility] Comment on above: Result Comment: NIKI GEMENT OF PATIENT CARE PER NURSING PROTOCOL Performed By: #### L 501.080 ####[facility] [address] [place], [address] FINGERSTICK GLU 174 mg/dL High -[address] [place] [address] Comment on above: Result Comment: NIKI GEMENT OF PATIENT CARE PER NURSING PROTOCOL Performed By: #### L 501.080 ####[facility] [address] [place], [address] Bedside Glucoseon 06-03-2024 FINGERSTICK GLU 218 mg/dL High [address] [place] [address] Comment on above: Result Comment: NIKI GEMENT OF PATIENT CARE PER NURSING PROTOCOL Performed By: #### L 501.080 ####[facility] [address] [place], [address] FINGERSTICK GLU 160 mg/dL High -106 [facility] Comment on above: Result Comment: NIKI GEMENT OF PATIENT CARE PER NURSING PROTOCOL Performed By: #### L 501.080 ####[facility] [address] [place], [address] FINGERSTICK GLU 159 mg/dL High -106 [facility] Comment on above: Result Comment: NIKI GEMENT OF PATIENT CARE PER NURSING PROTOCOL Performed By: #### L 501.080 ####[facility] [address] [place], [address] FINGERSTICK GLU 157 mg/dL High 74-106 [facility] Comment on above: Result Comment: NIKI GEMENT OF PATIENT CARE PER NURSING PROTOCOL Performed By: #### L 501.080 ####[facility] [address] [place], [address] Bedside Glucoseon 06-02-2024 FINGERSTICK GLU 200 mg/dL High [address] [place] [address] Comment on above: Result Comment: NIKI GEMENT OF PATIENT CARE PER NURSING PROTOCOL Performed By: #### L 501.080 ####[facility] [address] [place], [address] FINGERSTICK GLU 165 mg/dL High [address] [place] [address] Comment on above: Result Comment: NIKI GEMENT OF PATIENT CARE PER NURSING PROTOCOL Performed By: #### L 501.080 ####[facility] [address] [place], [address] FINGERSTICK GLU 149 mg/dL High [address] [place] [address] Comment on above: Result Comment: NIKI GEMENT OF PATIENT CARE PER NURSING PROTOCOL Performed By: #### L 501.080 ####[facility] [address] [place], [address] FINGERSTICK GLU 173 mg/dL High [address] [place] [address] Comment on above: Result Comment: NIKI GEMENT OF PATIENT CARE PER NURSING PROTOCOL Performed By: #### L 501.080 ####[facility] [address] [place], [address] Venous Duplex US, Unilateral on 06-02-2024 Venous Duplex US, Unilateral Normal [facility] Bedside Glucoseon 06-01-2024 FINGERSTICK GLU 149 mg/dL High [address] [place] [address] Comment on above: Result Comment: NIKI GEMENT OF PATIENT CARE PER NURSING PROTOCOL Performed By: #### L 501.080 ####[facility] [address] [place], [address] FINGERSTICK GLU 125 mg/dL High [address] [place] [address] Comment on above: Result Comment: NIKI GEMENT OF PATIENT CARE PER NURSING PROTOCOL Performed By: #### L 501.080 ####[facility] [address] [place], [address] FINGERSTICK GLU 168 mg/dL High 74-106 [facility] Comment on above: Result Comment: NIKI GEMENT OF PATIENT CARE PER NURSING PROTOCOL Performed By: #### L 501.080 ####[facility] [address] [place], [address] FINGERSTICK GLU 130 mg/dL High 74-106 [facility] Comment on above: Result Comment: NIKI GEMENT OF PATIENT CARE PER NURSING PROTOCOL Performed By: #### L 501.080 ####[facility] [address] [place], [address] Basic Metabolic Profile (BMP )on 05-31-2024 BUN/CRE 19.0 RATIO Normal 10-20 [facility] Comment on above: Performed By: #### L 100.0100, L500.2500 ####[facility] [address] [place], [address] Calcium [Mass/Vol] 8.6 mg/dL Normal 7.6-11.0 [facility] Comment on above: Performed By: #### L 100.0100, L500.2500 ####[facility] [address] [place], [address] Chloride [Moles/Vol] 105 mmol/L Normal 98-108 [facility] Comment on above: Performed By: #### L 100.0100, L500.2500 ####[facility] [address] [place], [address] CO2 [Moles/Vol] 22.1 mmol/L Normal 21.0-32.0 [facility] Comment on above: Performed By: #### L 100.0100, L500.2500 ####[facility] [address] [place], [address] Creatinine [Mass/Vol] 1.04 mg/dL Normal 0.70-1.20 [facility] Comment on above: Performed By: #### L 100.0100, L500.2500 ####[facility] [address] [place], [address] ECRCL 58.66 ml/min Normal 50-250 [facility] Comment on above: Performed By: #### L 100.0100, L500.2500 ####[facility] [address] [place], [address] GAP 11 Normal 5-15 [facility] Comment on above: Performed By: #### L 100.0100, L500.2500 ####[facility] [address] [place], [address] GFR/1.73 sq M.predicted among non-blacks MDRD (S/P/Bld) [Vol rate/Area] 72 mL/min/{1.73_m2} Normal >60 [facility] Comment on above: Result Comment: mL/m in/1.73m2 CKD-EPI Creatinine Equation (2020) Performed By: #### L 100.0100, L500.2500 ####[facility] [address] [place], [address] Glucose [Mass/Vol] 118 mg/dL High 70-99 [facility] Comment on above: Performed By: #### L 100.0100, L500.2500 ####[facility] [address] [place], [address] Potassium [Moles/Vol] 4.1 mmol/L Normal 3.3-5.1 [facility] Comment on above: Performed By: #### L 100.0100, L500.2500 ####[facility] [address] [place], [address] Sodium [Moles/Vol] 138 mmol/L Normal 133-145 [facility] Comment on above: Performed By: #### L 100.0100, L500.2500 ####[facility] [address] [place], [address] Urea nitrogen [Mass/Vol] 20 mg/dL High 4-19 [facility] Comment on above: Performed By: #### L 100.0100, L500.2500 ####[facility] [address] [place], [address] Bedside Glucoseon 05-31-2024 FINGERSTICK GLU 141 mg/dL High 74-106 [facility] Comment on above: Result Comment: NIKI GEMENT OF PATIENT CARE PER NURSING PROTOCOL Performed By: #### L 501.080 ####[facility] [address] [place], [address] FINGERSTICK GLU 110 mg/dL High 74-106 [facility] Comment on above: Result Comment: NIKI GEMENT OF PATIENT CARE PER NURSING PROTOCOL Performed By: #### L 501.080 ####[facility] [address] [place], [address] FINGERSTICK GLU 180 mg/dL High 74-106 [facility] Comment on above: Result Comment: NIKI GEMENT OF PATIENT CARE PER NURSING PROTOCOL Performed By: #### L 501.080 ####[facility] [address] [place], [address] FINGERSTICK GLU 133 mg/dL High 74-106 [facility] Comment on above: Result Comment: NIKI GEMENT OF PATIENT CARE PER NURSING PROTOCOL Performed By: #### L 501.080 ####[facility] [address] [place], [address] CBC W/Diff, Automatedon 04-0 Absolute Lymph 1.25 X10 3/uL Normal 0.83-4.51 [facility] Comment on above: Performed By: #### L 100.0100 ####[facility] [address] [place], [address] Absolute Neut 2.5 X10 3/uL Normal 2.0-7.7 [facility] Comment on above: Performed By: #### L 100.0100 ####[facility] [address] [place], [address] Basophils/100 WBC (Bld) 0.9 % Normal 0-1 [facility] Comment on above: Performed By: #### L 100.0100 ####[facility] [address] [place], [address] Eosinophils/100 WBC (Bld) 3.7 % Normal 0-5 [facility] Comment on above: Performed By: #### L 100.0100 ####[facility] [address] [place], [address] Erythrocyte distribution width (RBC) [Ratio] 14.7 % High 11.6-14.6 [facility] Comment on above: Performed By: #### L 100.0100 ####[facility] [address] [place], [address] Hematocrit (Bld) [Volume fraction] 32.0 % Low 40-54 [facility] Comment on above: Performed By: #### L 100.0100 ####[facility] [address] [place], [address] Hemoglobin (Bld) [Mass/Vol] 10.0 g/dL Low 13.0-16.5 [facility] Comment on above: Performed By: #### L 100.0100 ####[facility] [address] [place], [address] IG% 0.900 Normal 0.0-0.9 [facility] Comment on above: Result Comment: IG% - Immature Granulocytes (promyelocytes, myelocytes andmetamyelocytes) > 1% indicates that a LEFT SHIFT is Present. Performed By: #### L 100.0100 ####[facility] [address] [place], [address] Lymphocytes/100 WBC (Bld) 27.1 % Normal 19-41 [facility] Comment on above: Performed By: #### L 100.0100 ####[facility] [address] [place], [address] MCH (RBC) [Entitic mass] 27.7 pg Normal 27.0-32.0 [facility] Comment on above: Performed By: #### L 100.0100 ####[facility] [address] [place], [address] MCHC (RBC) [Mass/Vol] 31.3 g/dL Low 32-36 [facility] Comment on above: Performed By: #### L 100.0100 ####[facility] [address] [place], [address] MCV (RBC) [Entitic vol] 88.6 fL Normal 80-94 [facility] Comment on above: Performed By: #### L 100.0100 ####[facility] [address] [place], [address] Monocytes/100 WBC (Bld) 12.4 % High 0-10 [facility] Comment on above: Performed By: #### L 100.0100 ####[facility] [address] [place], [address] Neutrophils/100 WBC (Bld) 55.0 % Normal 47-70 [facility] Comment on above: Performed By: #### L 100.0100 ####[facility] [address] [place], [address] Nucleated RBC (Bld) [#/Vol] 0 10*3/uL Normal 0-5 [facility] Comment on above: Performed By: #### L 100.0100 ####[facility] [address] [place], [address] Platelet mean volume (Bld) [Entitic vol] 9.2 fL Normal 6.2-12.0 [facility] Comment on above: Performed By: #### L 100.0100 ####[facility] [address] [place], [address] Platelets (Bld) [#/Vol] 269 10*3/uL Normal 150-450 [facility] Comment on above: Performed By: #### L 100.0100 ####[facility] [address] [place], [address] RBC (Bld) [#/Vol] 3.61 10*6/uL Low 4.6-6.2 [facility] Comment on above: Performed By: #### L 100.0100 ####[facility] [address] [place], [address] RDW SD 47.5 fl High 35.1-43.9 [facility] Comment on above: Performed By: #### L 100.0100 ####[facility] [address] [place], [address] WBC (Bld) [#/Vol] 4.6 10*3/uL Normal 4.4-11.0 [facility] Comment on above: Performed By: #### L 100.0100 ####[facility] [address] [place], [address] Absolute Neut Normal 2.0-7.7 [facility] Comment on above: Result Comment: BARC ODE ERROR. REORDERED Performed By: #### L 100.0100, L500.2500 ####[facility] [address] [place], [address] HCT Normal 40-54 [facility] Comment on above: Result Comment: BARC ODE ERROR. REORDERED Performed By: #### L 100.0100, L500.2500 ####[facility] [address] [place], [address] HGB Normal 13.0-16.5 [facility] Comment on above: Result Comment: BARC ODE ERROR. REORDERED Performed By: #### L 100.0100, L500.2500 ####[facility] [address] [place], [address] MCH Normal 27.0-32.0 [facility] Comment on above: Result Comment: BARC ODE ERROR. REORDERED Performed By: #### L 100.0100, L500.2500 ####[facility] [address] [place], [address] MCHC Normal 32-36 [facility] Comment on above: Result Comment: BARC ODE ERROR. REORDERED Performed By: #### L 100.0100, L500.2500 ####[facility] [address] [place], [address] MCV Normal 80-94 [facility] Comment on above: Result Comment: BARC ODE ERROR. REORDERED Performed By: #### L 100.0100, L500.2500 ####[facility] [address] [place], [address] NEUT% Normal 47-70 [facility] Comment on above: Result Comment: BARC ODE ERROR. REORDERED Performed By: #### L 100.0100, L500.2500 ####[facility] [address] [place], [address] PLT Normal 150-450 [facility] Comment on above: Result Comment: BARC ODE ERROR. REORDERED Performed By: #### L 100.0100, L500.2500 ####[facility] [address] [place], [address] RBC Normal 4.6-6.2 [facility] Comment on above: Result Comment: BARC ODE ERROR. REORDERED Performed By: #### L 100.0100, L500.2500 ####[facility] [address] [place], [address] RDW CV Normal 11.6-14.6 [facility] Comment on above: Result Comment: BARC ODE ERROR. REORDERED Performed By: #### L 100.0100, L500.2500 ####[facility] [address] [place], [address] RDW SD Normal 35.1-43.9 [facility] Comment on above: Result Comment: BARC ODE ERROR. REORDERED Performed By: #### L 100.0100, L500.2500 ####[facility] [address] [place], [address] WBC Normal 4.4-11.0 [facility] Comment on above: Result Comment: BARC ODE ERROR. REORDERED Performed By: #### L 100.0100, L500.2500 ####[facility] [address] [place], [address] Basic Metabolic Profile (BMP )on 05-30-2024 BUN Normal 4-19 [facility] Comment on above: Result Comment: Canc elled via OM: Order Changed Performed By: #### L 500.2500, L100.0100 ####[facility] [address] [place], [address] BUN/CRE Normal 10-20 [facility] Comment on above: Result Comment: Canc elled via OM: Order Changed Performed By: #### L 500.2500, L100.0100 ####[facility] [address] [place], [address] Calcium Normal 7.6-11.0 [facility] Comment on above: Result Comment: Canc elled via OM: Order Changed Performed By: #### L 500.2500, L100.0100 ####[facility] [address] [place], [address] CL Normal 98-108 [facility] Comment on above: Result Comment: Canc elled via OM: Order Changed Performed By: #### L 500.2500, L100.0100 ####[facility] [address] [place], [address] CO2 Normal 21.0-32.0 [facility] Comment on above: Result Comment: Canc elled via OM: Order Changed Performed By: #### L 500.2500, L100.0100 ####[facility] [address] [place], [address] CREAT,SERUM Normal 0.70-1.20 [facility] Comment on above: Result Comment: Canc elled via OM: Order Changed Performed By: #### L 500.2500, L100.0100 ####[facility] [address] [place], [address] eGFR Normal >60 [facility] Comment on above: Result Comment: Canc elled via OM: Order Changed Performed By: #### L 500.2500, L100.0100 ####[facility] [address] [place], [address] GAP Normal 5-15 [facility] Comment on above: Result Comment: Canc elled via OM: Order Changed Performed By: #### L 500.2500, L100.0100 ####[facility] [address] [place], [address] GLU Normal 70-99 [facility] Comment on above: Result Comment: Canc elled via OM: Order Changed Performed By: #### L 500.2500, L100.0100 ####[facility] [address] [place], [address] Potassium Normal 3.3-5.1 [facility] Comment on above: Result Comment: Canc elled via OM: Order Changed Performed By: #### L 500.2500, L100.0100 ####[facility] [address] [place], [address] Basic Metabolic Profile (BMP) Normal 133-145 [facility] Comment on above: Result Comment: Canc elled via OM: Order Changed Performed By: #### L 500.2500, L100.0100 ####[facility] [address] [place], [address] Bedside Glucoseon 05-30-2024 FINGERSTICK GLU 157 mg/dL High 74-106 [facility] Comment on above: Result Comment: NIKI GEMENT OF PATIENT CARE PER NURSING PROTOCOL Performed By: #### L 501.080 ####[facility] [address] [place], [address] FINGERSTICK GLU 84 mg/dL Normal 74-106 [facility] Comment on above: Result Comment: NIKI GEMENT OF PATIENT CARE PER NURSING PROTOCOL Performed By: #### L 501.080 ####[facility] [address] [place], [address] FINGERSTICK GLU 123 mg/dL High 74-106 [facility] Comment on above: Result Comment: NIKI GEMENT OF PATIENT CARE PER NURSING PROTOCOL Performed By: #### L 501.080 ####[facility] [address] [place], [address] FINGERSTICK GLU 130 mg/dL High 74-106 [facility] Comment on above: Result Comment: NIKI GEMENT OF PATIENT CARE PER NURSING PROTOCOL Performed By: #### L 501.080 ####[facility] [address] [place], [address] CBC W/Diff, Automatedon 04-0 Absolute Neut Normal 2.0-7.7 [facility] Comment on above: Result Comment: Canc elled via OM: Order Changed Performed By: #### L 500.2500, L100.0100 ####[facility] [address] [place], [address] HCT Normal 40-54 [facility] Comment on above: Result Comment: Canc elled via OM: Order Changed Performed By: #### L 500.2500, L100.0100 ####[facility] [address] [place], [address] HGB Normal 13.0-16.5 [facility] Comment on above: Result Comment: Canc elled via OM: Order Changed Performed By: #### L 500.2500, L100.0100 ####[facility] [address] [place], [address] MCH Normal 27.0-32.0 [facility] Comment on above: Result Comment: Canc elled via OM: Order Changed Performed By: #### L 500.2500, L100.0100 ####[facility] [address] [place], [address] MCHC Normal 32-36 [facility] Comment on above: Result Comment: Canc elled via OM: Order Changed Performed By: #### L 500.2500, L100.0100 ####[facility] [address] [place], [address] MCV Normal 80-94 [facility] Comment on above: Result Comment: Canc elled via OM: Order Changed Performed By: #### L 500.2500, L100.0100 ####[facility] [address] [place], [address] NEUT% Normal 47-70 [facility] Comment on above: Result Comment: Canc elled via OM: Order Changed Performed By: #### L 500.2500, L100.0100 ####[facility] [address] [place], [address] PLT Normal 150-450 [facility] Comment on above: Result Comment: Canc elled via OM: Order Changed Performed By: #### L 500.2500, L100.0100 ####[facility] [address] [place], [address] RBC Normal 4.6-6.2 [facility] Comment on above: Result Comment: Canc elled via OM: Order Changed Performed By: #### L 500.2500, L100.0100 ####[facility] [address] [place], [address] RDW CV Normal 11.6-14.6 [facility] Comment on above: Result Comment: Canc elled via OM: Order Changed Performed By: #### L 500.2500, L100.0100 ####[facility] [address] [place], [address] RDW SD Normal 35.1-43.9 [facility] Comment on above: Result Comment: Canc elled via OM: Order Changed Performed By: #### L 500.2500, L100.0100 ####[facility] [address] [place], [address] WBC Normal 4.4-11.0 [facility] Comment on above: Result Comment: Canc elled via OM: Order Changed Performed By: #### L 500.2500, L100.0100 ####[facility] [address] [place], [address] Bedside Glucoseon 05-29-2024 FINGERSTICK GLU 146 mg/dL High 74-106 [facility] Comment on above: Result Comment: NIKI GEMENT OF PATIENT CARE PER NURSING PROTOCOL Performed By: #### L 501.080 ####[facility] [address] [place], [address] FINGERSTICK GLU 160 mg/dL High 74-106 [facility] Comment on above: Result Comment: NIKI GEMENT OF PATIENT CARE PER NURSING PROTOCOL Performed By: #### L 501.080 ####[facility] [address] [place], [address] FINGERSTICK GLU 159 mg/dL High 74-106 [facility] Comment on above: Result Comment: NIKI GEMENT OF PATIENT CARE PER NURSING PROTOCOL Performed By: #### L 501.080 ####[facility] [address] [place], [address] FINGERSTICK GLU 114 mg/dL High 74-106 [facility] Comment on above: Result Comment: NIKI GEMENT OF PATIENT CARE PER NURSING PROTOCOL Performed By: #### L 501.080 ####[facility] [address] [place], [address] Bedside Glucoseon 05-28-2024 FINGERSTICK GLU 146 mg/dL High 74-106 [facility] Comment on above: Result Comment: NIKI GEMENT OF PATIENT CARE PER NURSING PROTOCOL Performed By: #### L 501.080 ####[facility] [address] [place], [address] FINGERSTICK GLU 101 mg/dL Normal 74-106 [facility] Comment on above: Result Comment: NIKI GEMENT OF PATIENT CARE PER NURSING PROTOCOL Performed By: #### L 501.080 ####[facility] [address] [place], [address] FINGERSTICK GLU 103 mg/dL Normal 74-106 [facility] Comment on above: Result Comment: NIKI GEMENT OF PATIENT CARE PER NURSING PROTOCOL Performed By: #### L 501.080 ####[facility] [address] [place], [address] FINGERSTICK GLU 143 mg/dL High 74-106 [facility] Comment on above: Result Comment: NIKI GEMENT OF PATIENT CARE PER NURSING PROTOCOL Performed By: #### L 501.080 ####[facility] [address] [facility] [address] Bedside Glucoseon 05-27-2024 FINGERSTICK GLU 176 mg/dL High 74-106 [facility] Comment on above: Result Comment: NIKI GEMENT OF PATIENT CARE PER NURSING PROTOCOL Performed By: #### L 501.080 ####[facility] [address] [place], [address] FINGERSTICK GLU 98 mg/dL Normal 74-106 [facility] Comment on above: Result Comment: NIKI GEMENT OF PATIENT CARE PER NURSING PROTOCOL Performed By: #### L 501.080 ####[facility] [address] [place], [address] FINGERSTICK GLU 238 mg/dL High 74-106 [facility] Comment on above: Result Comment: NIKI GEMENT OF PATIENT CARE PER NURSING PROTOCOL Performed By: #### L 501.080 ####[facility] [address] [place], [address] FINGERSTICK GLU 106 mg/dL Normal 74-106 [facility] Comment on above: Result Comment: NIKI GEMENT OF PATIENT CARE PER NURSING PROTOCOL Performed By: #### L 501.080 ####[facility] [address] [place], [address] Calculated total iron bindin g capacityOrdered By: Fredis Moon on 05-27-2024 Total Iron Binding Capacity 258 ug/dL 250-450 [facility] Iron (Unsp spec) [Mass/Mass] Ordered By: Fredis Moon on 05-27-2024 Iron [Mass/Vol] 36 ug/dL Low 65-175 [facility] Iron measurement (mass/mass) Ordered By: Fredis Moon on 05-27-2024 Iron (Unsp spec) [Mass/Mass] 36 ug/dL Low 65-175 [facility] Iron saturation [Mass fracti on]Ordered By: Fredis Moon on 05-27-2024 Iron Saturation 14.0 % 9-55 [facility] Iron+Iron Binding Capacityon 05-27-2024 Iron [Mass/Vol] 36 ug/dL Low 65-175 [facility] Comment on above: Performed By: #### L 503.6030 ####[facility] [address] [place], [address] IRON SATURATION 14.0 Normal 9-55 [facility] Comment on above: Performed By: #### L 503.6030 ####[facility] [address] [place], [address] TIBC 258 ug/dL Normal 250-450 [facility] Comment on above: Performed By: #### L 503.6030 ####[facility] [address] [place], [address] UIBC 222 ug/dL Low 228-428 [facility] Comment on above: Performed By: #### L 503.6030 ####[facility] [address] [place], [address] No Panel InformationOrdered By: Fredis Moon on 05-27-2024 Unsaturated Iron Binding Capacity 222 ug/dL Low 228-428 [facility] Serum or plasma iron saturat ion measurement (mass fraction)Ordered By: Fredis Moon on 05-27-2024 Iron saturation [Mass fraction] 14.0 % 9-55 [facility] Bedside Glucoseon 05-26-2024 FINGERSTICK GLU 123 mg/dL High 74-106 [facility] Comment on above: Result Comment: NIKI GEMENT OF PATIENT CARE PER NURSING PROTOCOL Performed By: #### L 501.080 ####[facility] [address] [place], [address] FINGERSTICK GLU 132 mg/dL High 74-106 [facility] Comment on above: Result Comment: NIKI GEMENT OF PATIENT CARE PER NURSING PROTOCOL Performed By: #### L 501.080 ####[facility] [address] [place], [address] FINGERSTICK GLU 147 mg/dL High 74-106 [facility] Comment on above: Result Comment: NIKI GEMENT OF PATIENT CARE PER NURSING PROTOCOL Performed By: #### L 501.080 ####[facility] [address] [place], [address] FINGERSTICK GLU 126 mg/dL High 74-106 [facility] Comment on above: Result Comment: NIKI GEMENT OF PATIENT CARE PER NURSING PROTOCOL Performed By: #### L 501.080 ####[facility] [address] [place], [address] HH, Hemoglobin AND Hematocri ton 05-26-2024 Hematocrit (Bld) [Volume fraction] 31.0 % Low 40-54 [facility] Comment on above: Performed By: #### L 100.0600 ####[facility] [address] [place], [address] Hemoglobin (Bld) [Mass/Vol] 9.9 g/dL Low 13.0-16.5 [facility] Comment on above: Performed By: #### L 100.0600 ####[facility] [address] [place], [address] Bedside Glucoseon 05-25-2024 FINGERSTICK GLU 195 mg/dL High 74-106 [facility] Comment on above: Result Comment: NIKI GEMENT OF PATIENT CARE PER NURSING PROTOCOL Performed By: #### L 501.080 ####[facility] [address] [place], [address] FINGERSTICK GLU 119 mg/dL High 74-106 [facility] Comment on above: Result Comment: NIKI GEMENT OF PATIENT CARE PER NURSING PROTOCOL Performed By: #### L 501.080 ####[facility] [address] [place], [address] FINGERSTICK GLU 247 mg/dL High 74-106 [facility] Comment on above: Result Comment: NIKI GEMENT OF PATIENT CARE PER NURSING PROTOCOL Performed By: #### L 501.080 ####[facility] [address] [place], [address] FINGERSTICK GLU 172 mg/dL High 74-106 [facility] Comment on above: Result Comment: NIKI GEMENT OF PATIENT CARE PER NURSING PROTOCOL Performed By: #### L 501.080 ####[facility] [address] [place], [address] FINGERSTICK GLU 128 mg/dL High 74-106 [facility] Comment on above: Result Comment: NIKI GEMENT OF PATIENT CARE PER NURSING PROTOCOL Performed By: #### L 501.080 ####[facility] [address] [place], [address] Progress Noteon 05-25-2024 Progress Note [facility]: [facility] [address] [facility] [address] Dept: [phone] Dept Loc: [phone] Visit type: Established patient Reason for Visit: Follow-up Assessment and Plan 1. 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 Velasco -So far so [...] and reasonable under the circumstances: Currently at [facility] . The patient has been advised [...] stated that they are currently in the [facility]. If the patient is a minor, [...] GDMT for CABG. Able to discharge to [facility] on POD#06. 05/25/24: Spoke with patient [...] chewable tablet (more content not included)... Normal [facility] Basic Metabolic Profile (BMP )on 05-24-2024 BUN/CRE 22.9 RATIO High 10-20 [facility] Comment on above: Performed By: #### L 500.2500, L100.0100 ####[facility] [address] [place], [address] Calcium [Mass/Vol] 8.9 mg/dL Normal 7.6-11.0 [facility] Comment on above: Performed By: #### L 500.2500, L100.0100 ####[facility] [address] [place], [address] Chloride [Moles/Vol] 104 mmol/L Normal 98-108 [facility] Comment on above: Performed By: #### L 500.2500, L100.0100 ####[facility] [address] [place], [address] CO2 [Moles/Vol] 24.5 mmol/L Normal 21.0-32.0 [facility] Comment on above: Performed By: #### L 500.2500, L100.0100 ####[facility] [address] [place], [address] Creatinine [Mass/Vol] 1.08 mg/dL Normal 0.70-1.20 [facility] Comment on above: Performed By: #### L 500.2500, L100.0100 ####[facility] [address] [place], [address] ECRCL 57.34 ml/min Normal 50-250 [facility] Comment on above: Performed By: #### L 500.2500, L100.0100 ####[facility] [address] [place], [address] GAP 11 Normal 5-15 [facility] Comment on above: Performed By: #### L 500.2500, L100.0100 ####[facility] [address] [place], [address] GFR/1.73 sq M.predicted among non-blacks MDRD (S/P/Bld) [Vol rate/Area] 69 mL/min/{1.73_m2} Normal >60 [facility] Comment on above: Result Comment: mL/m in/1.73m2 CKD-EPI Creatinine Equation (2020) Performed By: #### L 500.2500, L100.0100 ####[facility] [address] [place], [address] Glucose [Mass/Vol] 142 mg/dL High 70-99 [facility] Comment on above: Performed By: #### L 500.2500, L100.0100 ####[facility] [address] [place], [address] Potassium [Moles/Vol] 4.3 mmol/L Normal 3.3-5.1 [facility] Comment on above: Performed By: #### L 500.2500, L100.0100 ####[facility] [address] [place], [address] Sodium [Moles/Vol] 140 mmol/L Normal 133-145 [facility] Comment on above: Performed By: #### L 500.2500, L100.0100 ####[facility] [address] [place], [address] Urea nitrogen [Mass/Vol] 25 mg/dL High 4-19 [facility] Comment on above: Performed By: #### L 500.2500, L100.0100 ####[facility] [address] [place], [address] Bedside Glucoseon 05-24-2024 FINGERSTICK GLU 197 mg/dL High 74-106 [facility] Comment on above: Result Comment: NIKI GEMENT OF PATIENT CARE PER NURSING PROTOCOL Performed By: #### L 501.080 ####[facility] [address] [place], [address] FINGERSTICK GLU 79 mg/dL Normal 74-106 [facility] Comment on above: Result Comment: NIKI GEMENT OF PATIENT CARE PER NURSING PROTOCOL Performed By: #### L 501.080 ####[facility] [address] [place], [address] FINGERSTICK GLU 61 mg/dL Low 74-106 [facility] Comment on above: Result Comment: NIKI GEMENT OF PATIENT CARE PER NURSING PROTOCOL Performed By: #### L 501.080 ####[facility] [address] [place], [address] FINGERSTICK GLU 149 mg/dL High 74-106 [facility] Comment on above: Result Comment: NIKI GEMENT OF PATIENT CARE PER NURSING PROTOCOL Performed By: #### L 501.080 ####[facility] [address] [place], [address] FINGERSTICK GLU 159 mg/dL High 74-106 [facility] Comment on above: Result Comment: NIKI GEMENT OF PATIENT CARE PER NURSING PROTOCOL Performed By: #### L 501.080 ####[facility] [address] [place], [address] FINGERSTICK GLU 104 mg/dL Normal 74-106 [facility] Comment on above: Result Comment: NIKI GEMENT OF PATIENT CARE PER NURSING PROTOCOL Performed By: #### L 501.080 ####[facility] [address] [place], [address] CBC W/Diff, Automatedon 04-0 2-2024 Absolute Lymph 0.97 X10 3/uL Normal 0.83-4.51 [facility] Comment on above: Performed By: #### L 500.2500, L100.0100 ####[facility] [facility] [address] [place], [address] Absolute Neut 4.3 X10 3/uL Normal 2.0-7.7 [facility] Comment on above: Performed By: #### L 500.2500, L100.0100 ####[facility] [address] [place], [address] Basophils/100 WBC (Bld) 1.0 % Normal 0-1 [facility] Comment on above: Performed By: #### L 500.2500, L100.0100 ####[facility] [address] [place], [address] Eosinophils/100 WBC (Bld) 2.7 % Normal 0-5 [facility] Comment on above: Performed By: #### L 500.2500, L100.0100 ####[facility] [address] [place], [address] Erythrocyte distribution width (RBC) [Ratio] 14.9 % High 11.6-14.6 [facility] Comment on above: Performed By: #### L 500.2500, L100.0100 ####[facility] [address] [place], [address] Hematocrit (Bld) [Volume fraction] 31.9 % Low 40-54 [facility] Comment on above: Performed By: #### L 500.2500, L100.0100 ####[facility] [address] [place], [address] Hemoglobin (Bld) [Mass/Vol] 9.8 g/dL Low 13.0-16.5 [facility] Comment on above: Performed By: #### L 500.2500, L100.0100 ####[facility] [address] [place], [address] IG% 1.600 High 0.0-0.9 [facility] Comment on above: Result Comment: IG% - Immature Granulocytes (promyelocytes, myelocytes andmetamyelocytes) > 1% indicates that a LEFT SHIFT is Present. Performed By: #### L 500.2500, L100.0100 ####[facility] [address] [place], [address] Lymphocytes/100 WBC (Bld) 15.4 % Low 19-41 [facility] Comment on above: Performed By: #### L 500.2500, L100.0100 ####[facility] [address] [place], [address] MCH (RBC) [Entitic mass] 27.5 pg Normal 27.0-32.0 [facility] Comment on above: Performed By: #### L 500.2500, L100.0100 ####[facility] [address] [place], [address] MCHC (RBC) [Mass/Vol] 30.7 g/dL Low 32-36 [facility] Comment on above: Performed By: #### L 500.2500, L100.0100 ####[facility] [address] [place], [address] MCV (RBC) [Entitic vol] 89.6 fL Normal 80-94 [facility] Comment on above: Performed By: #### L 500.2500, L100.0100 ####[facility] [address] [place], [address] Monocytes/100 WBC (Bld) 11.1 % High 0-10 [facility] Comment on above: Performed By: #### L 500.2500, L100.0100 ####[facility] [address] [place], [address] Neutrophils/100 WBC (Bld) 68.2 % Normal 47-70 [facility] Comment on above: Performed By: #### L 500.2500, L100.0100 ####[facility] [address] [place], [address] Nucleated RBC (Bld) [#/Vol] 0 10*3/uL Normal 0-5 [facility] Comment on above: Performed By: #### L 500.2500, L100.0100 ####[facility] [address] [place], [address] Platelet mean volume (Bld) [Entitic vol] 8.9 fL Normal 6.2-12.0 [facility] Comment on above: Performed By: #### L 500.2500, L100.0100 ####[facility] [address] [place], [address] Platelets (Bld) [#/Vol] 357 10*3/uL Normal 150-450 [facility] Comment on above: Performed By: #### L 500.2500, L100.0100 ####[facility] [address] [place], [address] RBC (Bld) [#/Vol] 3.56 10*6/uL Low 4.6-6.2 [facility] Comment on above: Performed By: #### L 500.2500, L100.0100 ####[facility] [address] [place], [address] RDW SD 49.1 fl High 35.1-43.9 [facility] Comment on above: Performed By: #### L 500.2500, L100.0100 ####[facility] [address] [place], [address] WBC (Bld) [#/Vol] 6.3 10*3/uL Normal 4.4-11.0 [facility] Comment on above: Performed By: #### L 500.2500, L100.0100 ####[facility] [address] [place], [address] Bedside Glucoseon 05-23-2024 FINGERSTICK GLU 101 mg/dL Normal 74-106 [facility] Comment on above: Result Comment: NIKI GEMENT OF PATIENT CARE PER NURSING PROTOCOL Performed By: #### L 501.080 ####[facility] [address] [place], [address] FINGERSTICK GLU 177 mg/dL High 74-106 [facility] Comment on above: Result Comment: NIKI GEMENT OF PATIENT CARE PER NURSING PROTOCOL Performed By: #### L 501.080 ####[facility] [address] [place], [address] FINGERSTICK GLU 139 mg/dL High 74-106 [facility] Comment on above: Result Comment: NIKI GEMENT OF PATIENT CARE PER NURSING PROTOCOL Performed By: #### L 501.080 ####[facility] [address] [place], [address] [facility] deOrdered By: Fredis Moon on 05-23-2024 Bedside Glucose (Misc Panel) 139 mg/dL High 74-106 [facility] Comment on above: MANAGEMENT OF PATIEN T CARE PER NURSING PROTOCOL HH, Hemoglobin AND Hematocri ton 05-23-2024 Hematocrit (Bld) [Volume fraction] 30.6 % Low 40-54 [facility] Comment on above: Performed By: #### L 100.0600 ####[facility] [address] [place], [place], [phone] Hemoglobin (Bld) [Mass/Vol] 9.5 g/dL Low 13.0-16.5 [facility] Comment on above: Performed By: #### L 100.0600 ####[facility] [address] [place], [address] Hematocrit Auto (Bld) [Volum e fraction]Ordered By: Fredis Moon on 05-23-2024 Hematocrit (Bld) [Volume fraction] 30.6 % Low 40-54 [facility] Hemoglobin measurementOrdere d By: Fredis Moon on 05-23-2024 Hemoglobin (Bld) [Mass/Vol] 9.5 g/dL Low 13.0-16.5 [facility] Lower GI hemoglobin IA Ql (S tl)Ordered By: Fredis Moon on 05-23-2024 Stool Occult Blood (KERLINE) [facility] Stool Occult Blood iFOBon STOB Normal [facility] Comment on above: Performed By: #### M 100.7900 ####[facility] [address] [place], [place], [id number] Stool gastrointestinal hemog lobin detection by immunologic methodOrdered By: Fredis Moon on 05-23-2024 Lower GI hemoglobin IA Ql (Stl) [facility] Bedside Glucoseon 05-22-2024 FINGERSTICK GLU 135 mg/dL High [address] [place] [address] Comment on above: Result Comment: NIKI ROMERO OF PATIENT CARE PER NURSING PROTOCOL Performed By: #### L 501.080 ####[facility] [address] [place], [place], [phone] FINGERSTICK GLU 192 mg/dL High [address] [place] [address] Comment on above: Result Comment: NIKI GEMENT OF PATIENT CARE PER NURSING PROTOCOL Performed By: #### L 501.080 ####[facility] [address] [place], [address] FINGERSTICK GLU 98 mg/dL Normal 74-106 [facility] Comment on above: Result Comment: NIKI GEMENT OF PATIENT CARE PER NURSING PROTOCOL Performed By: #### L 501.080 ####[facility] [address] [place], [address] FINGERSTICK GLU 152 mg/dL High 74-106 [facility] Comment on above: Result Comment: NIKI GEMENT OF PATIENT CARE PER NURSING PROTOCOL Performed By: #### L 501.080 ####[facility] [address] [place], [address] Bedside Glucoseon 05-21-2024 FINGERSTICK GLU 151 mg/dL High 74-106 [facility] Comment on above: Result Comment: NIKI GEMENT OF PATIENT CARE PER NURSING PROTOCOL Performed By: #### L 501.080 ####[facility] [address] [place], [address] FINGERSTICK GLU 243 mg/dL High 74-106 [facility] Comment on above: Result Comment: NIKI GEMENT OF PATIENT CARE PER NURSING PROTOCOL Performed By: #### L 501.080 ####[facility] [address] [place], [address] FINGERSTICK GLU 270 mg/dL High 74-106 [facility] Comment on above: Result Comment: NIKI GEMENT OF PATIENT CARE PER NURSING PROTOCOL Performed By: #### L 501.080 ####[facility] [address] [place], [address] FINGERSTICK GLU 173 mg/dL High 74-106 [facility] Comment on above: Result Comment: NIKI GEMENT OF PATIENT CARE PER NURSING PROTOCOL Performed By: #### L 501.080 ####[facility] [address] [place], [address] Bedside Glucoseon 05-20-2024 FINGERSTICK GLU 179 mg/dL High 74-106 [facility] Comment on above: Result Comment: NIKI GEMENT OF PATIENT CARE PER NURSING PROTOCOL Performed By: #### L 501.080 ####[facility] [address] [place], [address] FINGERSTICK GLU 69 mg/dL Low 74-106 [facility] Comment on above: Result Comment: NIKI GEMENT OF PATIENT CARE PER NURSING PROTOCOL Performed By: #### L 501.080 ####[facility] [address] [place], [address] FINGERSTICK GLU 195 mg/dL High 74-106 [facility] Comment on above: Result Comment: NIKI GEMENT OF PATIENT CARE PER NURSING PROTOCOL Performed By: #### L 501.080 ####[facility] [address] [place], [address] FINGERSTICK GLU 130 mg/dL High 74-106 [facility] Comment on above: Result Comment: NIKI GEMENT OF PATIENT CARE PER NURSING PROTOCOL Performed By: #### L 501.080 ####[facility] [address] [place], [address] Bedside Glucoseon 05-19-2024 FINGERSTICK GLU 167 mg/dL High 74-106 [facility] Comment on above: Result Comment: NIKI GEMENT OF PATIENT CARE PER NURSING PROTOCOL Performed By: #### L 501.080 ####[facility] [address] [place], [address] FINGERSTICK GLU 158 mg/dL High 74-106 [facility] Comment on above: Result Comment: NIKI GEMENT OF PATIENT CARE PER NURSING PROTOCOL Performed By: #### L 501.080 ####[facility] [address] [place], [address] FINGERSTICK GLU 178 mg/dL High 74-106 [facility] Comment on above: Result Comment: NIKI GEMENT OF PATIENT CARE PER NURSING PROTOCOL Performed By: #### L 501.080 ####[facility] [address] [place], [address] FINGERSTICK GLU 215 mg/dL High 74-106 [facility] Comment on above: Result Comment: NIKI GEMENT OF PATIENT CARE PER NURSING PROTOCOL Performed By: #### L 501.080 ####[facility] [address] [place], [address] Bedside Glucoseon 05-18-2024 FINGERSTICK GLU 87 mg/dL Normal -[address] [place] [address] Comment on above: Result Comment: NIKI GEMENT OF PATIENT CARE PER NURSING PROTOCOL Performed By: #### L 501.080 ####[facility] [address] [place], [address] FINGERSTICK GLU 79 mg/dL Normal 74-106 [facility] Comment on above: Result Comment: NIKI GEMENT OF PATIENT CARE PER NURSING PROTOCOL Performed By: #### L 501.080 ####[facility] [address] [place], [address] FINGERSTICK GLU 164 mg/dL High -106 [facility] Comment on above: Result Comment: NIKI GEMENT OF PATIENT CARE PER NURSING PROTOCOL Performed By: #### L 501.080 ####[facility] [address] [place], [address] FINGERSTICK GLU 231 mg/dL High -106 [facility] Comment on above: Result Comment: NIKI GEMENT OF PATIENT CARE PER NURSING PROTOCOL Performed By: #### L 501.080 ####[facility] [address] [place], [address] FINGERSTICK GLU 202 mg/dL High 74-106 [facility] Comment on above: Result Comment: NIKI GEMENT OF PATIENT CARE PER NURSING PROTOCOL Performed By: #### L 501.080 ####[facility] [address] [place], [place], [address] HH, Hemoglobin AND Hematocri ton 05-18-2024 Hematocrit (Bld) [Volume fraction] 29.5 % Low 40-54 [facility] Comment on above: Order Comment: 24 HO URS POST TRANSFUSION Performed By: #### L 100.0600 ####[facility] [address] [place], [address] Hemoglobin (Bld) [Mass/Vol] 9.9 g/dL Low 13.0-16.5 [facility] Comment on above: Order Comment: 24 HO URS POST TRANSFUSION Performed By: #### L 100.0600 ####[facility] [address] [place], [address] Venous Duplex US - Andrew Extre mon 05-18-2024 Venous Duplex US - Andrew Extrem Normal [facility] Venous duplex ultrasound rep ortOrdered By: Daysi Monterroso on 05-18-2024 US Vein [facility] [address] [place] [address] Venous Duplex US - Andrew Extrem 05/18/24 1013 MR#: [id number] Acct: [id number] Name: Joaquin THRASHER Rep #:[id number] 3 : 1940 84 From: Daysi Clayton [...] Chi Performed By: Td Walsh, T 05/18/24 181 Date _ Daysi Monterroso MD CC: Dr. Fredis Moon MD ~ Date Dictated: 05/18/24 1013 Date Transcribed: 05/18/241810 Director Of Automation: Signed [facility] Work Phone: [phone] 05-17-2024 [id number] Patient Choice Patient Name: FARHANA THRASHER Date of : 1940 Normal [facility] Absolute neutrophil countOrd ered By: Fredis Moon on 05-17-2024 Neutrophils (Bld) [#/Vol] 6.9 10*3/uL 2.0-7.7 [facility] Anion gap in Serum or Plasma Ordered By: Fredis Moon on 05-17-2024 Anion gap [Moles/Vol] 12 mmol/L 5-15 [facility] BRCon 05-17-2024 RC Normal [facility] Comment on above: Result Comment: [id number] OP RC TRANSFUSED 05/17/24 [id number] OP RC TRANSFUSED 05/17/24 1042 Performed By: #### B TS, [facility] ####[facility] [address] [place], [address] BUN/creatinine ratioOrdered By: Fredis Moon on 05-17-2024 Urea nitrogen/Creatinine [Mass ratio] 23.7 mg/mg High 10-20 [facility] Basic Metabolic Profile (BMP )on 05-17-2024 BUN/CRE 23.7 RATIO High 10-20 [facility] Comment on above: Performed By: #### L 100.0100, L500.2500 ####[facility] [address] [place], [address] Calcium [Mass/Vol] 8.7 mg/dL Normal 7.6-11.0 [facility] Comment on above: Performed By: #### L 100.0100, L500.2500 ####[facility] [address] [place], [address] Chloride [Moles/Vol] 103 mmol/L Normal 98-108 [facility] Comment on above: Performed By: #### L 100.0100, L500.2500 ####[facility] [address] [place], [address] CO2 [Moles/Vol] 23.3 mmol/L Normal 21.0-32.0 [facility] Comment on above: Performed By: #### L 100.0100, L500.2500 ####[facility] [address] [place], [address] Creatinine [Mass/Vol] 1.10 mg/dL Normal 0.70-1.20 [facility] Comment on above: Performed By: #### L 100.0100, L500.2500 ####[facility] [address] [place], [address] ECRCL 56.65 ml/min Normal 50-250 [facility] Comment on above: Performed By: #### L 100.0100, L500.2500 ####[facility] [address] [place], [address] GAP 12 Normal 5-15 [facility] Comment on above: Performed By: #### L 100.0100, L500.2500 ####[facility] [address] [place], [address] GFR/1.73 sq M.predicted among non-blacks MDRD (S/P/Bld) [Vol rate/Area] 67 mL/min/{1.73_m2} Normal >60 [facility] Comment on above: Result Comment: mL/m in/1.73m2 CKD-EPI Creatinine Equation (2020) Performed By: #### L 100.0100, L500.2500 ####[facility] [address] [place], [address] Glucose [Mass/Vol] 262 mg/dL High 70-99 [facility] Comment on above: Performed By: #### L 100.0100, L500.2500 ####[facility] [address] [place], [address] Potassium [Moles/Vol] 4.1 mmol/L Normal 3.3-5.1 [facility] Comment on above: Performed By: #### L 100.0100, L500.2500 ####[facility] [address] [place], [address] Sodium [Moles/Vol] 138 mmol/L Normal 133-145 [facility] Comment on above: Performed By: #### L 100.0100, L500.2500 ####[facility] [address] [place], [address] Urea nitrogen [Mass/Vol] 26 mg/dL High 4-19 [facility] Comment on above: Performed By: #### L 100.0100, L500.2500 ####[facility] [address] [place], [address] Bedside Glucoseon 05-17-2024 FINGERSTICK GLU 205 mg/dL High 74-106 [facility] Comment on above: Result Comment: NIKI GEMENT OF PATIENT CARE PER NURSING PROTOCOL Performed By: #### L 501.080 ####[facility] [address] [place], [address] FINGERSTICK GLU 351 mg/dL High 74-106 [facility] Comment on above: Result Comment: NIKI GEMENT OF PATIENT CARE PER NURSING PROTOCOL Performed By: #### L 501.080 ####[facility] [address] [place], [address] FINGERSTICK GLU 291 mg/dL High -106 [facility] Comment on above: Result Comment: NIKI GEMENT OF PATIENT CARE PER NURSING PROTOCOL Performed By: #### L 501.080 ####[facility] [address] [place], [address] FINGERSTICK GLU 225 mg/dL High 74-106 [facility] Comment on above: Result Comment: NIKI GEMENT OF PATIENT CARE PER NURSING PROTOCOL Performed By: #### L 501.080 ####[facility] [address] [place], [address] Blood band neutrophil count as percentage of total leukocytesOrdered By: Fredis Moon on 05-17-2024 Band form neutrophils/100 WBC (Bld) 1 % 0-5 [facility] Blood basophils/100 leukocyt esOrdered By: Fredis Red on 05-17-2024 Basophils/100 WBC (Bld) 1 % 0-1 [facility] Blood eosinophils/100 leukoc ytesOrdered By: on 05-17-2024 Eosinophils/100 WBC (Bld) 0 % 0-5 [facility] Blood lymphocytes/100 leukoc ytesOrdered By: Fredis Perryok on 05-17-2024 Lymphocytes/100 WBC (Bld) 8 % Low 19-41 [facility] Blood metamyelocytes/100 carl kocytesOrdered By: on 05-17-2024 Metamyelocytes/100 WBC (Bld) 2 % High 0-1 [facility] Blood monocytes/100 leukocyt esOrdered By: Fredis Red on 05-17-2024 Monocytes/100 WBC (Bld) 10 % 0-10 [facility] Blood polychromasia detectio n by light microscopyOrdered By: Fredis Perryok on 05-17-2024 Polychromasia LM Ql (Bld) 1+ [facility] Blood segmented neutrophils/ 100 leukocytesOrdered By: Fredis Red on 05-17-2024 Segmented neutrophils/100 WBC (Bld) 78 % High 47-70 [facility] Carbon dioxide, total [Moles /volume] in Central venous bloodOrdered By: Fredis Moon on 05-17-2024 CO2 [Moles/Vol] 23.3 mmol/L 21.0-32.0 [facility] Cells counted Molgen (Bld/Ti ss) [#]Ordered By: Fredis Moon on 05-17-2024 Differential Total Cells Counted 100 MANUAL DIFF [facility] Chloride assayOrdered By: Mir Moon on 05-17-2024 Chloride [Moles/Vol] 103 mmol/L 98-108 [facility] Erythrocyte distribution wid th ratioOrdered By: Fredis Moon on 05-17-2024 Erythrocyte distribution width (RBC) [Ratio] 14.9 % High 11.6-14.6 [facility] Erythrocyte distribution wid th standard deviationOrdered By: Fredis Moon on 05-17-2024 Erythrocyte distribution width (RBC) [Entitic vol] 47.3 fL High 35.1-43.9 [facility] Estimation of creatinine melissa aranceOrdered By: Fredis Moon on 05-17-2024 Estimated Creatinine Clearance Calc 56.65 ml/min 50-250 [facility] GFR/1.73 sq M.predicted [place] non-blacks MDRD (S/P/Bld) [Vol rate/Area]Ordered By: Fredis Moon on 05-17-2024 Estimated GFR (MDRD) Non-Af Amer 67 >60 [facility] Comment on above: mL/min/1.73m2 CKD-EP I Creatinine Equation (2020) Lymphocytes Auto (Unsp spec) [#/Vol]Ordered By: Fredis Moon on 05-17-2024 Lymphocytes (Bld) [#/Vol] 0.69 10*3/uL Low 0.83-4.51 [facility] MCV (mean corpuscular volume ) determinationOrdered By: Fredis Moon on 05-17-2024 MCV (RBC) [Entitic vol] 87.6 fL 80-94 [facility] Mean corpuscular hemoglobin (MCH) determinationOrdered By: Fredis Moon on 05-17-2024 MCH (RBC) [Entitic mass] 27.4 pg 27.0-32.0 [facility] Mean corpuscular hemoglobin concentration (MCHC) determinationOrdered By: Fredis Moon on 05-17-2024 MCHC (RBC) [Mass/Vol] 31.3 g/dL Low 32-36 [facility] Mean platelet volume determi nationOrdered By: Fredis Moon on 05-17-2024 Platelet mean volume (Bld) [Entitic vol] 9.3 fL 6.2-12.0 [facility] Neutrophil percentageOrdered By: Fredis Moon on 05-17-2024 Neutrophils (%) (Auto) Not Reportable [facility] Pathologist review Jonse (Unsp spec) [Interp]Ordered By: Fredis Moon on 05-17-2024 Differential Pathologist's Review June indu [facility] Differential Pathologist's Review Reviewed [facility] Comment on above: Previous reported re sult: Ana Lilia griggs Edited by: ALTAF on 06/06/24:1507SEE REPORT IN PATIENT'S EMR AMENDED REPORT 06/06/24 1507 PATH REV previously reported as: Ana Lilia griggs Platelet countOrdered By: Mir Moon on 05-17-2024 Platelets (Bld) [#/Vol] 278 10*3/uL 150-450 [facility] Platelet estimateOrdered By: Fredis Moon on 05-17-2024 Platelets LM Ql (Bld) A ADEQ [facility] Platelets LM Ql (Bld)Ordered By: Fredis Moon on 05-17-2024 Platelet Estimate A ADEQ [facility] Polychromasia LM Ql (Bld)Ord ered By: Fredis Moon on 05-17-2024 Polychromasia 1+ [facility] Potassium (Unsp spec) [Mass/ Vol]Ordered By: Fredis Moon on 05-17-2024 Potassium [Moles/Vol] 4.1 mmol/L 3.3-5.1 [facility] RBC Auto (Bld) [#/Vol]Ordere d By: Fredis Moon on 05-17-2024 RBC (Bld) [#/Vol] 2.59 10*6/uL Low 4.6-6.2 [facility] Review by pathologistOrdered By: Fredis Moon on 05-17-2024 Pathologist review Jones (Unsp spec) [Interp] Reviewed [facility] Comment on above: Previous reported re sult: Ana Lilia griggs Edited by: ALTAF on 06/06/24:1507SEE REPORT IN PATIENT'S EMR AMENDED REPORT 06/06/24 1507 PATH REV previously reported as: Ana Lilia griggs Segmented neutrophils/100 WB C (Bld)Ordered By: Fredis Moon on 05-17-2024 Neutrophils/100 WBC (Bld) 78 % High 47-70 [facility] Serum creatinine measurement (mass/volume)Ordered By: Fredis Moon on 05-17-2024 Creatinine [Mass/Vol] 1.10 mg/dL 0.70-1.20 [facility] Serum glucose measurement (m ass/volume)Ordered By: Fredis Moon on 05-17-2024 Glucose [Mass/Vol] 262 mg/dL High 70-99 [facility] Serum or plasma calcium mt urement (mass/volume)Ordered By: Fredis Moon on 05-17-2024 Calcium [Mass/Vol] 8.7 mg/dL 7.6-11.0 [facility] Serum or plasma urea nitroge n measurement (mass/volume)Ordered By: Fredis Moon on 05-17-2024 Urea nitrogen [Mass/Vol] 26 mg/dL High 4-19 [facility] Sodium levelOrdered By: Fredis Perryok on 05-17-2024 Sodium [Moles/Vol] 138 mmol/L 133-145 [facility] Total cell countOrdered By: Fredis Red on 05-17-2024 Cells counted Molgen (Bld/Tiss) [#] 100 MANUAL DIFF [facility] Type AND Screenon 05-17-2024 Ab SCREEN GEL PENDING Normal [facility] Comment on above: Order Comment: CMV N EG? NNumber of units to transfuse: 2Reason for Ordering Blood: AcuteAre the blood/blood products to be transfused? YIs the patient having/had surgery? YWhen ReadyNY Performed By: #### B ELIN, [facility] ####[facility] [address] [place], [place], [id number] ABO and Rh group Nom (Bld) Blood group O Rh(D) positive Normal [facility] Comment on above: Order Comment: CMV N EG? NNumber of units to transfuse: 2Reason for Ordering Blood: AcuteAre the blood/blood products to be transfused? YIs the patient having/had surgery? YWhen ReadyNY Performed By: #### B ELIN, [facility] [facility] ####[facility] [address] [place], [place], [id number] White blood cell (WBC) count Ordered By: Fredis Red on 05-17-2024 WBC (Bld) [#/Vol] 8.7 10*3/uL 4.4-11.0 [facility] 30on 05-16-2024 30 Problem: Knowledge Deficit Goal: [...] will remain free of falls Outcome: Progressing [facility] [id number] 05-16-2024 [id number] Next Site of Care Admission Date: 05/10/2024 05:34 AM Patient Name: FARHANA THRASHER Location: [address] [id number] A Date of : 1940 ------- Placement Information ------- Referral Type:[facility] - New Referral ID:[id number] Provider Name:[facility] Address 1:[address] Address 2: City:[place] Selection Factors:Patient/Famil y Choice State:[facility] [phone] Received call from Licha at [facility] that they are able to accept patient. Requested discharge order, completed LAURA and transportation be set up. [facility] [phone] SW [facility] TCC, RN, Facility, Infrastructure Security Architect, Pt and Pt's spouse notified. [facility] BASIC METABOLIC PANELon 03- Anion gap [Moles/Vol] 8 mmol/L Normal 3-13 [facility] Comment on above: Performed By: #### L AB103, LAB15 ####Associate Professor Of Art: DANIELLA PEREZ ([id number])[facility])[address] [place] [address] Calcium [Mass/Vol] 8.9 mg/dL Normal 8.8-10.0 [facility] Comment on above: Performed By: #### L AB103, LAB15 ####Associate Professor Of Art: DANIELLA PEREZ ([phone])[facility])[address] [place] [address] [place] Chloride [Moles/Vol] 105 mmol/L Normal 98-107 [facility] Comment on above: Performed By: #### L AB103, LAB15 ####Associate Professor Of Art: DANIELLA PEREZ ([id number])[facility])[address] [place] [address] [place] CO2 [Moles/Vol] 25 mmol/L Normal 23-31 [facility] Comment on above: Performed By: #### L AB103, LAB15 ####Associate Professor Of Art: DANIELLA PEREZ ([id number])[facility])[address] [place] [address] Creatinine [Mass/Vol] 1.04 mg/dL Normal 0.72-1.25 [facility] Comment on above: Performed By: #### L AB103, LAB15 ####Associate Professor Of Art: DANIELLA PEREZ ([phone])[facility])[address] [place] [address] GLOMERULAR FILTRATION RATE ML/MIN/1.73 SQ M.PREDICTED 71.7 mL/min/1.73m*2 Normal >60.0 [facility] Comment on above: Result Comment: Calc ulation based on the Chronic Kidney Disease Epidemiology Collaboration (CKD-EPI) equation refit without adjustment for race Performed By: #### L 103, LAB15 ####Associate Professor Of Art: DANIELLA PEREZ ([id number])[facility])[address] [place] [address] Glucose [Mass/Vol] 206 mg/dL High 82-115 [facility] Comment on above: Performed By: #### L 103, LAB15 ####Associate Professor Of Art: DANIELLA PEREZ ([id number])[address] Potassium [Moles/Vol] 3.9 mmol/L Normal 3.5-5.1 [facility] Comment on above: Result Comment: [facility] potassium values may be up to 0.5 mmol/L lower than serum values. Performed By: #### L 103, LAB15 ####Associate Professor Of Art: DANIELLA PEREZ ([id number])[facility])[address] [place] [address] Sodium [Moles/Vol] 138 mmol/L Normal 136-145 [facility] Comment on above: Performed By: #### L AB103, LAB15 ####Associate Professor Of Art: DANIELLA PEREZ ([id number])[facility])[address] [place] [address] [place] Urea nitrogen [Mass/Vol] 27 mg/dL High 9-23 [facility] Comment on above: Performed By: #### L AB103, LAB15 ####Associate Professor Of Art: DANIELLA PEREZ ([id number])[facility])[address] [place] [address] Basic metabolic 1998 panelon 05-16-2024 Anion gap [Moles/Vol] 8 mmol/L 3 - 13 mmol/L [facility] Calcium [Mass/Vol] 8.9 mg/dL 8.8 - 10. 0 mg/dL [facility] Chloride [Moles/Vol] 105 mmol/L 98 - 10 7 mmol/L [facility] CO2 [Moles/Vol] 25 mmol/L 23 - 31 mmol/L [facility] Creatinine [Mass/Vol] 1.04 mg/dL 0.72 - 1.25 mg/dL [facility] GFR/1.73 sq M.predicted (S/P/Bld) [Vol rate/Area] 71.7 mL/min - PINF [facility] Glucose [Mass/Vol] 206 mg/dL High 82 - 115 mg/dL [facility] Interpretation and review of laboratory results Abnormal [facility] Potassium [Moles/Vol] 3.9 mmol/L 3.5 - 5.1 mmol/L [facility] Sodium [Moles/Vol] 138 mmol/L 136 - 145 mmol/L [facility] Urea nitrogen [Mass/Vol] 27 mg/dL High 9 - 23 mg/dL [facility] Bedside Glucoseon 05-16-2024 F[place] GLU 260 mg/dL High 74-106 [facility] Comment on above: Result Comment: NIKI BOYERENT OF PATIENT CARE PER NURSING PROTOCOL Performed By: #### L 501.080 ####[facility] [address] [place], [place], [id number] CBC (HEMOGRAM)on 05-16-2024 Erythrocyte distribution width (RBC) [Ratio] 14.7 % Normal 11.5-15.0 [facility] Comment on above: Performed By: #### L AB294 ####Associate Professor Of Art: DANIELLA PEREZ ([id number])[facility])[address] [place] [address] Hematocrit (Bld) [Volume fraction] 23.7 % Low 40.0-52.0 [facility] Comment on above: Performed By: #### L AB294 ####Associate Professor Of Art: DANIELLA PEREZ ([id number])[facility] [place] [address] Hemoglobin (Bld) [Mass/Vol] 7.4 g/dL Low 13.0-18.0 [facility] Comment on above: Performed By: #### L AB294 ####Associate Professor Of Art: DANIELLA PEREZ ([id number])[facility])[address] [place] [address] MCH (RBC) [Entitic mass] 27.6 pg Normal 26.0-34.0 [facility] Comment on above: Performed By: #### L AB294 ####Associate Professor Of Art: DANIELLA PEREZ ([id number])[facility])[address] [place] [address] MCHC 31.2 % Normal 30.5-36.0 [facility] Comment on above: Performed By: #### L AB294 ####Associate Professor Of Art: DANIELLA PEREZ ([id number])[facility])[address] [place] [address] MCV (RBC) [Entitic vol] 88.4 fL Normal 77.0-99.[address] [facility] Comment on above: Performed By: #### L AB294 ####Associate Professor Of Art: DANIELLA PEREZ ([id number])[facility])[address] [place] [address] Platelet mean volume (Bld) [Entitic vol] 9.4 fL Normal 9.0-12.7 [facility] Comment on above: Performed By: #### L AB294 ####Associate Professor Of Art: DANIELLA PEREZ ([id number])[facility])[address] [place] [address] Platelets (Bld) [#/Vol] 274 10*3/uL Normal 140-440 [facility] Comment on above: Performed By: #### L AB294 ####Associate Professor Of Art: DANIELLA PEREZ ([id number])[facility])[address] [place] [address] RBC (Bld) [#/Vol] 2.68 10*6/uL Low 4.40-5.90 [facility] Comment on above: Performed By: #### L AB294 ####Associate Professor Of Art: DANIELLA PEREZ ([id number])[facility] ([facility])[address] [place] [address] WBC (Bld) [#/Vol] 8.7 10*3/uL Normal 3.6-10.7 [facility] Comment on above: Performed By: #### L AB294 ####Associate Professor Of Art: DANIELLA PEREZ ([id number])[facility] ([facility])[address] [place] [address] CBC panel Auto (Bld)on 05-16 Erythrocyte distribution width (RBC) [Ratio] 14.7 % 11.5 - 15.0 % [facility] Hematocrit (Bld) [Volume fraction] 23.7 % Low 40.0 - 52.0 % [facility] Hemoglobin (Bld) [Mass/Vol] 7.4 g/dL Low 13.0 - 18.0 g/dL [facility] Interpretation and review of laboratory results Abnormal [facility] MCH (RBC) [Entitic mass] 27.6 pg 26. 0 - 34.0 pg [facility] MCHC (RBC) [Mass/Vol] 31.2 % 30.5 - 36.0 % [facility] MCV (RBC) [Entitic vol] 88.4 fL 77.0 - 99.0 fL [facility] Platelet mean volume (Bld) [Entitic vol] 9.4 fL 9.0 - 12.7 fL [facility] Platelets (Bld) [#/Vol] 274 10*3/uL 140 - 440 10*3/uL [facility] RBC (Bld) [#/Vol] 2.68 10*6/uL Low 4.40 - 5.9 0 10*6/uL [facility] WBC (Bld) [#/Vol] 8.7 10*3/uL 3.6 - 10.7 10*3/uL [facility] Laboratory - Chemistry and C hemistry - challengeon 05-16-2024 Glucose [Mass/Vol] 224 mg/dL High 70 - 100 mg/dL [facility] Magnesium [Mass/Vol] 2.2 mg/dL 1.6 - 2 .6 mg/dL [facility] MAGNESIUMon 03-25-2025 Magnesium [Mass/Vol] 2.2 mg/dL Normal 1.6-2.6 [facility] Comment on above: Result Comment: JEAN CARLOS R COMMENTS: Higher values can be expected in females during menses. Performed By: #### L AB103, LAB15 ####Associate Professor Of Art: DANIELLA PEREZ ([id number])[facility] ([facility])[address] [place] [address] Magnesium [Mass/Vol]on 05-16 Interpretation and review of laboratory results Normal [facility] No Panel Informationon 05-16 Interpretation and review of laboratory results Abnormal [facility] Nursing Noteon 05-16-2024 Nursing Note Report called to Danny Dailey. [facility] Progress Noteon 05-16-2024 Progress Note Cardiothoracic Surgery [...] continue to monitor. [facility] Progress Note PHYSICAL THERAPY [facility] Treatment Note Name/MRN: Nimisha Thrasher ([id number]) Date of : 1940 Age: 84 y.o. [...] Abi Rios PTA [facility] Progress Note Department of Internal Medicine Division of Endocrinology, Diabetes, & Metabolism Endocrinology Note Patient Name: Farhana Thrasher : 1940 AGE: 84 y.o. Room/Bed: T1-116/T1116 A Admission Date: 05/10/2024 Visit Date: 05/16/2024 Reason for Endocrine Consult: post op heart Provider/Team Requesting Consult: CTS PCP: KELSEY MOON MD Outpt Roofer Applicator: No ASSESSMENT: DM2 with hyperglycemia and fpc insulin Stress hyperglycemia CABGX3 HLD/CAD Obesity Body mass index is 32.61 kg/m?. PLAN: Glucose readings are still elevated as of this morning Increase dose of Lantus 32 units daily Increase Humalog to 14/14/14 units before meals Continue Humalog medium scale ICU goal <180 GMF goal <150 POCT BG ACHS Hypoglycemia management per protocol Carb controlled diet ANTICIPATED ENDOCRINE HOME GOING RECOMMENDATIONS: Optimized for Discharge from Endocrine standpoint: yes Home Going Endocrine Rx Recommendations-- Continue lantus and humalog to [facility] rehab Once dc to home resume- Soliqua [...] Units, SubCUTAneous, (more content not included)... Normal [facility] XR CHEST 1 VIEWon 05-16-2024 XR CHEST 1 VIEW Patient Name: FARHANA THRASHER : 1940 [facility]#: [id number] Exam Date/Time: 05/16/2024 05:22 Procedure: XR CHEST [...] Signed Date/Time: 05/16/2024 5:34 AM EDT Normal [facility] XR Chest Single viewon 05-16 [facility] Radiology Study observation (narrative) [facility] BASIC METABOLIC PANELon 04-23 Anion gap [Moles/Vol] 8 mmol/L Normal 3-13 [facility] Comment on above: Performed By: #### L AB15, [id number] ####Associate Professor Of Art: DANIELLA PEREZ ([id number])[address] Calcium [Mass/Vol] 8.9 mg/dL Normal 8.8-10.0 [facility] Comment on above: Performed By: #### L AB15, [id number] ####Associate Professor Of Art: DANIELLA PEREZ ([id number])[facility] ([facility])[address] [place] [address] Chloride [Moles/Vol] 108 mmol/L High 98-107 [facility] Comment on above: Performed By: #### L AB15, [id number] ####Associate Professor Of Art: DANIELLA PEREZ ([id number])[facility])[address] [place] [address] CO2 [Moles/Vol] 24 mmol/L Normal 23-31 [facility] Comment on above: Performed By: #### L AB15, [id number] ####Associate Professor Of Art: DANIELLA PEREZ ([id number])[facility])[address] [place] [address] Creatinine [Mass/Vol] 0.97 mg/dL Normal 0.72-1.25 [facility] Comment on above: Performed By: #### L AB15, [id number] ####Associate Professor Of Art: DANIELLA PEREZ ([id number])[facility])[address] [place] [address] GLOMERULAR FILTRATION RATE ML/MIN/1.73 SQ M.PREDICTED 77.9 mL/min/1.73m*2 Normal >60.0 [facility] Comment on above: Result Comment: Calc ulation based on the Chronic Kidney Disease Epidemiology Collaboration (CKD-EPI) equation refit without adjustment for race Performed By: #### L AB15, [id number] ####Associate Professor Of Art: DANIELLA PEREZ ([id number])[facility])[address] [place] [address] Glucose [Mass/Vol] 189 mg/dL High 82-115 [facility] Comment on above: Performed By: #### L AB15, [id number] ####Associate Professor Of Art: DANIELLA PEREZ ([id number])[facility])[address] [place] [address] Potassium [Moles/Vol] 3.8 mmol/L Normal 3.5-5.1 [facility] Comment on above: Result Comment: [facility] potassium values may be up to 0.5 mmol/L lower than serum values. Performed By: #### L AB15, [id number] ####Associate Professor Of Art: DANIELLA PEREZ ([id number])[facility] ([facility])[address] [place] [address] Sodium [Moles/Vol] 140 mmol/L Normal 136-145 [facility] Comment on above: Performed By: #### L AB15, [id number] ####Associate Professor Of Art: DANIELLA PEREZ ([id number])[facility])[address] [place] [address] Urea nitrogen [Mass/Vol] 25 mg/dL High 9-23 [facility] Comment on above: Performed By: #### L AB15, [id number] ####Associate Professor Of Art: DANIELLA PEREZ ([id number])[facility])[address] [place] [address] Basic metabolic 1998 panelon 05-15-2024 Anion gap [Moles/Vol] 8 mmol/L 3 - 13 mmol/L [facility] Calcium [Mass/Vol] 8.9 mg/dL 8.8 - 10. 0 mg/dL [facility] Chloride [Moles/Vol] 108 mmol/L High 98 - 10 7 mmol/L [facility] CO2 [Moles/Vol] 24 mmol/L 23 - 31 mmol/L [facility] Creatinine [Mass/Vol] 0.97 mg/dL 0.72 - 1.25 mg/dL [facility] GFR/1.73 sq M.predicted (S/P/Bld) [Vol rate/Area] 77.9 mL/min - PINF [facility] Glucose [Mass/Vol] 189 mg/dL High 82 - 115 mg/dL [facility] Interpretation and review of laboratory results Abnormal [facility] Potassium [Moles/Vol] 3.8 mmol/L 3.5 - 5.1 mmol/L [facility] Sodium [Moles/Vol] 140 mmol/L 136 - 145 mmol/L [facility] Urea nitrogen [Mass/Vol] 25 mg/dL High 9 - 23 mg/dL [facility] CBC (HEMOGRAM)on 05-15-2024 Erythrocyte distribution width (RBC) [Ratio] 14.6 % Normal 11.5-15.0 [facility] Comment on above: Performed By: #### L AB294 ####Associate Professor Of Art: DANIELLA PEREZ ([id number])[facility] ([facility])[address] [place] [address] Hematocrit (Bld) [Volume fraction] 23.4 % Low 40.0-52.0 [facility] Comment on above: Performed By: #### L AB294 ####Associate Professor Of Art: DANIELLA PEREZ ([id number])[facility])[address] [place] [address] Hemoglobin (Bld) [Mass/Vol] 7.3 g/dL Low 13.0-18.0 [facility] Comment on above: Performed By: #### L AB294 ####Associate Professor Of Art: DANIELLA PEREZ ([id number])[facility])[address] [place] [address] MCH (RBC) [Entitic mass] 27.1 pg Normal 26.0-34.0 [facility] Comment on above: Performed By: #### L AB294 ####Associate Professor Of Art: DANIELLA PEREZ ([id number])[facility])[address] [place] [address] MCHC 31.2 % Normal 30.5-36.0 [facility] Comment on above: Performed By: #### L AB294 ####Associate Professor Of Art: DANIELLA PEREZ ([id number])[facility])[address] [place] [address] MCV (RBC) [Entitic vol] 87.0 fL Normal 77.0-99.[address] [facility] Comment on above: Performed By: #### L AB294 ####Associate Professor Of Art: DANIELLA PEREZ ([id number])[facility])[address] [place] [address] Platelet mean volume (Bld) [Entitic vol] 9.2 fL Normal 9.0-12.7 [facility] Comment on above: Performed By: #### L AB294 ####Associate Professor Of Art: DANIELLA PEREZ ([id number])[facility])[address] [place] [address] Platelets (Bld) [#/Vol] 218 10*3/uL Normal 140-440 [facility] Comment on above: Performed By: #### L AB294 ####Associate Professor Of Art: DANIELLA PEREZ ([id number])[facility])[address] [place] [address] RBC (Bld) [#/Vol] 2.69 10*6/uL Low 4.40-5.90 [facility] Comment on above: Performed By: #### L AB294 ####Associate Professor Of Art: DANIELLA PEREZ ([id number])[address] WBC (Bld) [#/Vol] 7.5 10*3/uL Normal 3.6-10.7 [facility] Comment on above: Performed By: #### L AB294 ####Associate Professor Of Art: DANIELLA PEREZ ([id number])[facility])[address] [place] [address] CBC panel Auto (Bld)on 05-15 Erythrocyte distribution width (RBC) [Ratio] 14.6 % 11.5 - 15.0 % [facility] Hematocrit (Bld) [Volume fraction] 23.4 % Low 40.0 - 52.0 % [facility] Hemoglobin (Bld) [Mass/Vol] 7.3 g/dL Low 13.0 - 18.0 g/dL [facility] Interpretation and review of laboratory results Abnormal [facility] MCH (RBC) [Entitic mass] 27.1 pg 26. 0 - 34.0 pg [facility] MCHC (RBC) [Mass/Vol] 31.2 % 30.5 - 36.0 % [facility] MCV (RBC) [Entitic vol] 87 fL 77.0 - 99.0 fL [facility] Platelet mean volume (Bld) [Entitic vol] 9.2 fL 9.0 - 12.7 fL [facility] Platelets (Bld) [#/Vol] 218 10*3/uL 140 - 440 10*3/uL [facility] RBC (Bld) [#/Vol] 2.69 10*6/uL Low 4.40 - 5.9 0 10*6/uL [facility] WBC (Bld) [#/Vol] 7.5 10*3/uL 3.6 - 10.7 10*3/uL [facility] ECG 12-LEADon 05-15-2024 ECG 12-LEAD IMPRESSION: SINUS RHYTHM Incomplete RBBB and LAFB Nonspecific T abnormalities, lateral leads Electronically Signed On 05-15-2024 13:14:24 EDT by Holden Bowles Normal [facility] Laboratory - Chemistry and C hemistry - challengeon 05-15-2024 Glucose [Mass/Vol] 266 mg/dL High 70 - 100 mg/dL [facility] Glucose [Mass/Vol] 167 mg/dL High 70 - 100 mg/dL [facility] Glucose [Mass/Vol] 208 mg/dL High 70 - 100 mg/dL [facility] Glucose [Mass/Vol] 244 mg/dL High 70 - 100 mg/dL [facility] Magnesium [Mass/Vol] 2.2 mg/dL 1.6 - 2 .6 mg/dL [facility] Glucose [Mass/Vol] 197 mg/dL High 70 - 100 mg/dL [facility] MAGNESIUMon 05-15-2024 Magnesium [Mass/Vol] 2.2 mg/dL Normal 1.6-2.6 [facility] Comment on above: Result Comment: JEAN CARLOS Nuñez COMMENTS: Higher values can be expected in females during menses. Performed By: #### L AB15, [id number] ####Associate Professor Of Art: DANIELLA PEREZ ([id number])[facility] ([address] Magnesium [Mass/Vol]on 05-15 Interpretation and review of laboratory results Normal [facility] No Panel Informationon 05-15 Interpretation and review of laboratory results Abnormal [facility] Interpretation and review of laboratory results Abnormal [facility] CV EPIPHANY [facility] Interpretation and review of laboratory results Abnormal [facility] Interpretation and review of laboratory results Abnormal [facility] Interpretation and review of laboratory results Abnormal [facility] No Panel InformationOrdered By: Holden Bowles on 05-15-2024 P [place] 154 degrees [facility] Work Phone: [phone] TN Interval 170 ms [facility] Work Phone: QRS [place] -44 degrees [facility] Work Phone: QRSD Interval 118 ms [facility] Work Phone: QT Interval 391 ms [facility] Work Phone: QTC Interval 461 ms [facility] Work Phone: T Wave [place] 64 degrees [facility] Work Phone: [facility] Work Phone: [phone] Progress Noteon 05-15-2024 Progress Note PHYSICAL THERAPY [facility] Treatment Note Name/MRN: Nimisha Thrasher ([id number]) Date of : 1940 Age: 84 y.o. 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 PLAN: Glucose readings are still elevated today Continue increased dose of Lantus 28 units daily Increase Humalog to 02/03/12 units before meals Continue Humalog medium scale [...] and Rhy (more content not included)... Normal [facility] Vital signsOrdered By: Nicole Bowles on 05-15-2024 Heart rate 84 /min bpm [facility] Work Phone: XR CHEST 1 VIEWon 05-15-2024 XR CHEST 1 VIEW Patient Name: FARHANA THRASHER : 1940 Exam Date/Time: 05/15/2024 05:21 Procedure: XR CHEST [...] Signed Date/Time: 05/15/2024 5:53 AM EDT Normal [facility] XR Chest Single viewon 05-15 [facility] Radiology Study observation (narrative) [facility] XR Chest Single viewOrdered By: Lina Adler on 05-15-2024 [facility] Work Phone: 30on 05-14-2024 30 Problem: Potential for [...] Nutritional Intake Outcome: Adequate for Discharge Normal [facility] BASIC METABOLIC PANELon 04-23 Anion gap [Moles/Vol] 8 mmol/L Normal - [facility] Comment on above: Performed By: #### L AB103, LAB15 ####Associate Professor Of Art: DANIELLA PEREZ ([id number])[address] Calcium [Mass/Vol] 8.7 mg/dL Low 8.8-10.0 [facility] Comment on above: Performed By: #### L AB103, LAB15 ####Associate Professor Of Art: DANIELLA PEREZ ([id number])[facility] ([facility])[address] [place] [address] [place] Chloride [Moles/Vol] 107 mmol/L Normal 98-107 [facility] Comment on above: Performed By: #### L AB103, LAB15 ####Associate Professor Of Art: DANIELLA PEREZ ([id number])[facility] ([facility])[address] [place] [address] CO2 [Moles/Vol] 23 mmol/L Normal 23-31 [facility] Comment on above: Performed By: #### L AB103, LAB15 ####Associate Professor Of Art: DANIELLA PEREZ ([id number])[facility])[address] [place] [address] Creatinine [Mass/Vol] 1.10 mg/dL Normal 0.72-1.25 [facility] Comment on above: Performed By: #### L AB103, LAB15 ####Associate Professor Of Art: DANIELLA PEREZ ([id number])[facility])[address] [place] [address] GLOMERULAR FILTRATION RATE ML/MIN/1.73 SQ M.PREDICTED 67.0 mL/min/1.73m*2 Normal >60.0 [facility] Comment on above: Result Comment: Calc ulation based on the Chronic Kidney Disease Epidemiology Collaboration (CKD-EPI) equation refit without adjustment for race Performed By: #### L AB103, LAB15 ####Associate Professor Of Art: DANIELLA PEREZ ([id number])[facility] ([facility])[address] [place] [address] Glucose [Mass/Vol] 196 mg/dL High 82-115 [facility] Comment on above: Performed By: #### L AB103, LAB15 ####Associate Professor Of Art: DANIELLA PEREZ ([phone])[facility])[address] [place] [address] Potassium [Moles/Vol] 3.8 mmol/L Normal 3.5-5.1 [facility] Comment on above: Result Comment: [facility] potassium values may be up to 0.5 mmol/L lower than serum values. Performed By: #### L AB103, LAB15 ####Associate Professor Of Art: DANIELLA PEREZ ([phone])[facility])[address] [place] [address] Sodium [Moles/Vol] 138 mmol/L Normal 136-145 [facility] Comment on above: Performed By: #### L AB103, LAB15 ####Associate Professor Of Art: DANIELLA PEREZ ([id number])[facility])[address] [place] [address] Urea nitrogen [Mass/Vol] 30 mg/dL High 9-23 [facility] Comment on above: Performed By: #### L AB103, LAB15 ####Associate Professor Of Art: DANIELLA PEREZ ([id number])[address] Basic metabolic 1998 panelon 05-14-2024 Anion gap [Moles/Vol] 8 mmol/L 3 - 13 mmol/L [facility] Calcium [Mass/Vol] 8.7 mg/dL Low 8.8 - 10. 0 mg/dL [facility] Chloride [Moles/Vol] 107 mmol/L 98 - 10 7 mmol/L [facility] CO2 [Moles/Vol] 23 mmol/L 23 - 31 mmol/L [facility] Creatinine [Mass/Vol] 1.1 mg/dL 0.72 - 1.25 mg/dL [facility] GFR/1.73 sq M.predicted (S/P/Bld) [Vol rate/Area] 67 mL/min - PINF [facility] Glucose [Mass/Vol] 196 mg/dL High 82 - 115 mg/dL [facility] Interpretation and review of laboratory results Abnormal [facility] Potassium [Moles/Vol] 3.8 mmol/L 3.5 - 5.1 mmol/L [facility] Sodium [Moles/Vol] 138 mmol/L 136 - 145 mmol/L [facility] Urea nitrogen [Mass/Vol] 30 mg/dL High 9 - 23 mg/dL [facility] CBC (HEMOGRAM)on 05-14-2024 Erythrocyte distribution width (RBC) [Ratio] 14.6 % Normal 11.5-15.0 [facility] Comment on above: Performed By: #### L AB294 ####Associate Professor Of Art: DANIELLA PEREZ ([id number])[facility])[address] [place] [address] Hematocrit (Bld) [Volume fraction] 23.7 % Low 40.0-52.0 [facility] Comment on above: Performed By: #### L AB294 ####Associate Professor Of Art: DANIELLA PEREZ ([id number])[facility])[address] [place] [address] Hemoglobin (Bld) [Mass/Vol] 7.6 g/dL Low 13.0-18.0 [facility] Comment on above: Performed By: #### L AB294 ####Associate Professor Of Art: DANIELLA PEREZ ([id number])[facility])[address] [place] [address] MCH (RBC) [Entitic mass] 27.5 pg Normal 26.0-34.0 [facility] Comment on above: Performed By: #### L AB294 ####Associate Professor Of Art: DANIELLA PEREZ ([id number])[facility])[address] [place] [address] MCHC 32.1 % Normal 30.5-36.0 [facility] Comment on above: Performed By: #### L AB294 ####Associate Professor Of Art: DANIELLA PEREZ ([id number])[facility])[address] [place] [address] MCV (RBC) [Entitic vol] 85.9 fL Normal 77.0-99.[address] [facility] Comment on above: Performed By: #### L AB294 ####Associate Professor Of Art: DANIELLA PEREZ ([id number])[facility])[address] [place] [address] Platelet mean volume (Bld) [Entitic vol] 9.7 fL Normal 9.0-12.7 [facility] Comment on above: Performed By: #### L AB294 ####Associate Professor Of Art: DANIELLA PEREZ ([id number])[facility])[address] [place] [address] Platelets (Bld) [#/Vol] 179 10*3/uL Normal 140-440 [facility] Comment on above: Performed By: #### L AB294 ####Associate Professor Of Art: DANIELLA PEREZ ([id number])[facility])[address] [place] [address] RBC (Bld) [#/Vol] 2.76 10*6/uL Low 4.40-5.90 [facility] Comment on above: Performed By: #### L AB294 ####Associate Professor Of Art: DANIELLA PEREZ ([id number])[address] WBC (Bld) [#/Vol] 8.5 10*3/uL Normal 3.6-10.7 [facility] Comment on above: Performed By: #### L AB294 ####Associate Professor Of Art: DANIELLA PEREZ ([id number])[facility])[address] [place] [address] CBC panel Auto (Bld)on 05-14 Erythrocyte distribution width (RBC) [Ratio] 14.6 % 11.5 - 15.0 % [facility] Hematocrit (Bld) [Volume fraction] 23.7 % Low 40.0 - 52.0 % [facility] Hemoglobin (Bld) [Mass/Vol] 7.6 g/dL Low 13.0 - 18.0 g/dL [facility] Interpretation and review of laboratory results Abnormal [facility] MCH (RBC) [Entitic mass] 27.5 pg 26. 0 - 34.0 pg [facility] MCHC (RBC) [Mass/Vol] 32.1 % 30.5 - 36.0 % [facility] MCV (RBC) [Entitic vol] 85.9 fL 77.0 - 99.0 fL [facility] Platelet mean volume (Bld) [Entitic vol] 9.7 fL 9.0 - 12.7 fL [facility] Platelets (Bld) [#/Vol] 179 10*3/uL 140 - 440 10*3/uL [facility] RBC (Bld) [#/Vol] 2.76 10*6/uL Low 4.40 - 5.9 0 10*6/uL [facility] WBC (Bld) [#/Vol] 8.5 10*3/uL 3.6 - 10.7 10*3/uL [facility] Laboratory - Chemistry and C hemistry - challengeon 05-14-2024 Glucose [Mass/Vol] 150 mg/dL High 70 - 100 mg/dL [facility] Glucose [Mass/Vol] 356 mg/dL High 70 - 100 mg/dL [facility] Glucose [Mass/Vol] 225 mg/dL High 70 - 100 mg/dL [facility] Magnesium [Mass/Vol] 2.3 mg/dL 1.6 - 2 .6 mg/dL [facility] MAGNESIUMon 05-14-2024 Magnesium [Mass/Vol] 2.3 mg/dL Normal 1.6-2.6 [facility] Comment on above: Result Comment: JEAN CARLOS Nuñez COMMENTS: Higher values can be expected in females during menses. Performed By: #### L AB103, LAB15 ####Associate Professor Of Art: DANIELLA PEREZ ([id number])[facility] ([address] Magnesium [Mass/Vol]on 05-14 Interpretation and review of laboratory results Normal [facility] No Panel InformationOrdered By: Daniella Perez on 05-14-2024 Case Report [facility] Work Phone: Clinical Information q1bzdJEuBBJofBGnAAr wN capdzJeLTFoyTAmZ4Ayrv ebWDwcZI3dIY6fbEeywSJ yhPOnNSPyFqBdz2tsj433 kXEtg9fdNSFQKQhhUODOI Vj6gTbqO14be0N0UzioC2 xyZWQwXGdyZWVuMFxibHV yJRw5AJJmfNUksoYkFoLi EVMwyVRlvYV4XPMpHF8ja wrnADysYOvfLZGvybD0GE ItmMLzW9ZzEXGpHI5srzf cGXK5VJpnMLNiZHN6HbWh AJFba5Huofg5YiRuqJGsR FxwbGFpblxmczIwXGNmMS ZIXYHiADVzqx9hYOF1LMF ydGVyeSBkaXNlYXNlKVxj ZjAgIFxwYXJ9 [facility] Work Phone: Disclaimer v1wnnSOqRFDdvJJhKvRo M NAkUEUba3vlFQKirXKlQg EwMzNcZnRuYmpcdWMxXGR iTbHlt5kdp174hWQtk4ce SVHuJzD7wGNnHSZgE43eM VEKR238RMXkTFtgi9bbm5 KjQOHodOZau1X8CVPBWPk pURWJAMi0gPenF62ij9C7 OlhcF3neVCLmZDFuJ0QiS E5iEYIkBgf6ZMY2UKP7WT MjOXSiE9PtIO4cCYJcfJJ pATo4t6jbdOqtCNRiFHW8 c3alZPtweqWrGR7ajs1pj Wv8h3xvhwRyONSgCFZytJ GPHLEiS8RjgSruXt7wwLn 3cJnbRfhmAEN7Rbf9GA4i rx58khg5eGcpRDGkxiqlW oW2MJitPBXyxwlaSNy9IR mfMGKlnCH2DKDooYYhR9R jEXFgCH2zorf6DIM6UKqz ABZqIoF1JOZjpIJkSCDxe NipFCzwk767SLE7EfInZL 2gX0Air9O8rF4rzRZvHNR ibNOgBiAlYDGycs7rtPPf VVfjs2UgEJI0diS3eMNyd AWmZDPeKQ69Asqlh5RxBw wiKBU6LAGtgrWkj2Gjd9q pJgEodpCqD5pnQ8JyOFAl YSNwCYXiTkVhnbHkc6Mni 1WxvTWpgRv2x4egOEYyUA JdkOnkq9irHSF4LIJrE3U 0zIKum4taQBhtCALrkJV5 izD1DRVxlCWrB2IhvL6dO UTyAR2rops0j9kfGOS4FY xtORRzDnS2igP8FDKncCH rCRPloRduRDlyo063BAJ2 GyLmVRDea1DpJ8CsrDoaM 68xqZcgE72uYKPfgAcpoI 0ffMnetB7sBsZjMpFhFEa xbFxwbGFpblxmMVxmczE2 HUnvvufhYLUnBGjtK9ywI vKnZCLddLhbMVibp9NkYC KpRMHqYOFcUAzgC0bgaD3 odrkzIVmoHXTqoWsnc1jw XnKybRW5BE5pcgRvKGOnj UiyveP4trBeyTiisP2avZ 1tqZqtqR3pmDOszWF0khb sIGluIHNpdHUgaHlicmlk aYxhfIbjowvoqT5rLPH8f OAjMHK3wHReUXFkRIGoUI GonW94rt5xoSZhpuLpM9S gP1VevBPnsKttKzkjwRWd kYQeRx2pvMGsXP1gMFMei UHwQ2WyFC5fUFFkuyrcND IgVGhlIHVzZSBvZiBvbmU mx4QiiH2oHHWmBVGkRP14 tcEukdW1bSSqPFFdriAik GVzdHMgaXMgcmVndWxhdG UiKUFbCLAbCJErWCi0vCF hh7WkT2sczRThbjFcW9Zr zVLhTVQZUQ9pXCgtg6Ymr ZCpfNEiz8BrGEBsCMPfdK 7vHWEnSD8aCQVyWXqnUJB retMwgb7pwgArJGSkEQGr T9ZjvfsvqXxdysFaHHZvs v6axnDnPCW9YDChBPZbpJ ubbJPxrTSaEVYtnwV1z9U pUXZdu5JqM9UhuYZaVJOl pSMjPKR1v7YtfH2sTCawr OJmOUYwTB1frXCfEFMoEF NsZWFyZWQgYnkgdGhlIFV EHTVzh6MgLC4vASVvkXhu AWKseW3ua0UnDHTpd75bG EZEQSkuIFRoZSBGREEgaG FzIGRldGVybWluZWQgdGh wpAZivKWlGFIjCZFeIB3m NWIkdcQxoDTlk0EilWKhc sMmp3NtoiWnXRMbGGP6Iv BccGFyXHBhciBBbGwgaW1 ciP1go9NliJ7hMRxhnsHl zIQgOr6wpWCoLI0vUDLll mFmZmluIGVtYmVkZGVkIH Ssz3P8XW4cGWVrgu7ispx ivDFafJ7rkHRhvlKnHV5s GE0iR0Z1vTClUMNkblIbq 9waHEy6fELwNOZvfKZacL YcUmaqGJZ5GIFpJOX5apR bctQsPMQorKjulOU4mUBf JXNbDKPjVELsZA68T4Fox 4CkM4teOM18NYGtKYEoKV JcnlQmx5dfFLYli5jkVWG rdUHlK3NqVVBgyAVrirtn RwKfMBR6LMUqYVL7zEEcH NFbR9PhyESjeXUzeU62JR 2ezXR6AE4cYWZ9OUmszY7 pYvQGjX77hi5xuXS6u7Ej AF7aL3RqZECor0E3eyTxX MAaDX1seNBcVGNfNIWtaT lkYXRlZCBvbiBkZWNhbGN zBfsrGEY5fLWwsQGnOhNL EAY3eZGkSVWmv2DtKLSiW HPdxmWgjnNqEYUcDYK3lO QxNQDexMSzo20bH0r1IT4 mvAjfXXXqbPDyUHWkf5Rf oAVctUw1tJJsHcPrLMcsR VXiSMdzhKp8qXK3DE0vOC BsW9LaO0fgyZOkSBEcAVF qbDNlsx4lcCXjqP== [facility] Work Phone: Gross Description t3mfaMMiYUBbaSEpDRaf N mfsjhXaUBMhmFPiO4Eyng tbQMekUN8qPL9poMmctEZ hiMYxQPGcYpTtt8dfb814 yPQvk6ppQVODENipNBXJN Mq8uMmcR79ri3R0JvctB4 6toTCfATA2ZNFwFMFoxUA fUKZgKJY2XLCzuZNoQ3ti DGOgSR4zkthhTRsjVHjaK OXdfUM9KKWoeAUcH2FgPG MkDDtlDUNavgn1NsCrSc4 vdGVyeTcyMFxwYXJkXHBs MCvrFMYyJwRqGyKqAFo1B ZDpaS7qUu4bvLJzpO3rcW CiYNwpKQNdYP2jEZA5SFF wM1CvgPvmlvrsbGHmT63h h50rdkdfDMT4YAC7TpEpc pBjdIyvUHZ5pFioKRMqP9 MsAUVyrfDnw93pAO1mJZo paOkskh28tHr1DLVpGLbw jBMtKYCtg69sbMP1tGPnt WUgdGhhdCBtZWFzdXJlID GfYcP3LUXwPJQfwOgqb6i 9hYXculKob2DlvUnzJVQp ZHMgYmVpbmcgYmlmdXJjY XXyGYHkttTtcIyeTP03xB EuXX8bTIV3guIaADChCvZ 9QPVnHMQxuV6vYNYjLTOu pECjwB2jizUmemKhLYS9T VgzsQDexBYybiXlUK65wE XczBtxv4UrjOt2lANkYOl aUD1lTLBxQNQnEMU2UW7f XHBhcn0= [employer] Work Phone: Pathologist Interpretation Location [facility], [address] [place] [address], [facility] [address], CLIA: [id number]; Joint Commission: HCO [id number]; CAP: [id number] [facility] [employer] Work Phone: Pathology report final diagnosis Narrative s2vntYLuUMZudGQcEFyqH crjneYfCVBwtICzE4Dklo naIZpqIJ8nIC4auAjccWW pbRSpLGVnZoEyc4kby710 dSOik6qaWJWWPUhxHKESS Nc3x6poMKFGJEUnRX7qB4 17XGYyIENvdXJpZXIgTmV 9K772DWFmVCqwhzrftR5y oca0lNdxG49eo8W9SeksW 673EBwrjGfbaAKfHegqd7 fqeVJ3PWkbn5JtLSW9SHi lRLI2T4ctrFO1jGFjwOwe bZCoTI0cn6lnsTN2wcNnN LC1zJsfnNY5tUcjuzdgz1 xpwIN2kAT8LBiyzKA3SDr pMyUtD6gyNPQmiQ1gW66l T0fvQIPhsAuePPxrSSXoi JW7YGL0WHThr7nsQLDgtD KkxTSjJgOpBQF6AfE0MTf kMWP9wLzzuZV0CGuhmL1d OSLlZ11bAzBozVraEnSuT mktMzYwfXtcbGlzdGxldm VsXGxldmVsbmZjMjNcbGV 2PPcrAwXaTvQclLS0BSnc VnSpmBZ3ICmduRJhvAL9J ViojFG7RVo3FRm2HWspLB 24yAhplSH8WPgzqE0wQRG tE77wBnCxfVqoLXlzGNCv NZS5FP02QVckx9RpYTIaw IxvCFKfeJ2kZlCdCQkhcj VsbmZjbjIzXGxldmVsamM uQRdykoBle3PcdpXkkVY0 RUszutRgvJN2kXkrTRLhr I3bUCY6FM58rNibcUP3SD ixtU9lAOLsT36wWtUqxWz dTFItQVMlWNN9AK07FScr g2OlENNjsPetHURhzF6pW zIzXGxldmVsbmZjbjIzXG nzlaFwpcDtAYnqrnBqs5W bzlSfbFJ5BVjaeaYcdXE7 bWbvLCMnjVqaYpXlNTs5F On5a4maOREtmW73xJDoek S1cWshCZqcxLZ5IhDvXka tMzYwfXtcbGlzdGxldmVs KLwsxmPhlbKsRvZhkDA0I YyyNmFmTsPgkEB8HMxtZt YluSU9TCsayCCbtTN5WMg dtQC0LGv2IFn0HYtxJA07 gYkvaWE2BLoblK3mIYGvM 31cZjJcbGkzMjQwXGZpLT N9QE00QVtgl4MgRPEguXc cDNAodC0aFeWhPAnqtsLk bmZjbjIzXGxldmVsamMwX UrleqZvr8SnxnBjpVQ1UX pvocDvwLQ1iNqcZPVyyD6 qJVV3SE93iIxhfSJ2FXhr sH3wGPHnG09cYmHlfLiaQ YAbFTJgMXO3GP36SRpmz1 FgLYRbpWakUPWouM3uCwP zXGxldmVsbmZjbjIzXGxl jgOsskMpUNznszOzg6Ijo rAcgAY4AVxrgaXnfQD9qJ dkDTZtsMbmWwWkBPp4KGg 5t6quYWSavU53fNOejeR5 jZmtAEkbdPY8WWRgNahcZ zYwfXtcbGlzdGxldmVsXG rwiyXabzNsToTzmOX9GMk jZiKzAaTksFR7AIceDhYy fMI4ULyawXZhaVG5QRoqz KY7DZp1JWx9ODvhKK76qH aruJT6PTvxgJ3fVWFnV64 iLuClbPc0YXNnZIUuSKI8 BL65UEnmf4PcSQFekMxzD PXdhB1bNcJzAWfbbmLvan ZjbjIzXGxldmVsamMwXGx rzuHpn6UlmoSidYU4LQzx quCbkAS9pDzqCUHcyT2eW YJ4SS32nByblUY8LGjpxL 8kXWGwU27dHyKlsXz6OXT sOTPmSJF7AE77hPcpNtxn nZX6c1QoyoPzWYN3KIPfA CrxZhcnzTL1d1VsukPyCY SluSksgLhtVBIwRTA1YTQ 6UGdya1ElkqYzbhzvMKVb pU97AXlrcbN8oHneBRLsm ikfVyK9XOzdNSQubeyvVP c0TZdwBTFioTJ1WVKmfLQ hZ4GxEJGtZW7fnmb6DAT7 QAavQIIuGvQ9KWAnrSAvX DIvwGgzVImzd929MIP8Ji IgXCIekbWneNpxgL0gNgH rNSWZJHwTAWBJM3PNXjMD WSBBUlRFUlksIEVOREFSV ULFIHBPQ59WILTlFHZtkN xwYXJcbGkzNjBcZmktMzY uIMxqiwD2CNclauKatUm6 cQDqzEyggD7iBxUlDSLAU UxDSUZJRUQgQVRIRVJPTU ICQ7ANIVBUHUZQYCJRKSR NTepZCV5kpVLetP== [facility] Work Phone: [employer] Work Phone: No Panel Informationon 03-23 -2025 Interpretation and review of laboratory results Abnormal [facility] [employer] [facility] Interpretation and review of laboratory results Abnormal [facility] Interpretation and review of laboratory results Abnormal [facility] Progress Noteon 05-14-2024 Progress Note Department of Internal Medicine Division of Endocrinology, Diabetes, & Metabolism Endocrinology Note Patient Name: Farhana Thrasher : 1940 AGE: 84 y.o. Room/Bed: T1-116/T1-116 A Admission Date: 05/10/2024 Visit Date: 05/14/2024 Reason for Endocrine Consult: post op heart Provider/Team Requesting Consult: CTS PCP: KELSEY MOON MD Outpt Roofer Applicator: No ASSESSMENT: DM2 with hyperglycemia and fpc insulin Stress hyperglycemia CABGX3 HLD/CAD Obesity Body [...] Units, SubCUTAneo (more content not included)... Normal [facility] Progress Note - Attestation signed by Luz Hough DO at 05/14/2024 2:29 PM I have personally performed a qyjm-xo-gztq diagnostic evaluation on this patient on date of service 05/14/24. History, labs, imaging studies, and electronic medical record have been reviewed by me. This note documented by the []lodging house keeper [x]JULIO CESAR reflects my history, exam, and [...] IPR vs home early this week Cardiothoracic Surgery/[facility] Progress Note PATIENT NAME: Farhana [...] JUDY, RAYMOND with Dr. Velasco Interval History: 05/14/24, [...] A total (more content not included)... Normal [facility] XR CHEST 1 VIEWon 05-14-2024 XR CHEST 1 VIEW Patient Name: FARHANA THRASHER : 1940 Exam Date/Time: 05/14/2024 09:12 Procedure: XR CHEST [...] Signed Date/Time: 05/14/2024 9:23 AM EDT Normal [facility] XR Chest Single viewon 05-14 [facility] Radiology Study observation (narrative) [facility] XR Chest Single viewOrdered By: Mara Plata on 05-14-2024 [facility] Work Phone: 30on 05-13-2024 30 Problem: [...] Nutritional Intake Outcome: Adequate for Discharge Normal [facility] BASIC METABOLIC PANELon 04-23 Anion gap [Moles/Vol] 8 mmol/L Normal 3-13 [facility] Comment on above: Performed By: #### L AB15, [id number] ####Associate Professor Of Art: DANIELLA PEREZ ([id number])[facility] ([facility])[address] [place] [address] Calcium [Mass/Vol] 8.9 mg/dL Normal 8.8-10.0 [facility] Comment on above: Performed By: #### L AB15, [id number] ####Associate Professor Of Art: DANIELLA PEREZ ([id number])[facility] [place] [address] [place] Chloride [Moles/Vol] 107 mmol/L Normal 98-107 [facility] Comment on above: Performed By: #### L AB15, [id number] ####Associate Professor Of Art: DANIELLA PEREZ ([id number])[facility] [place] [address] [place] CO2 [Moles/Vol] 24 mmol/L Normal 23-31 [facility] Comment on above: Performed By: #### L AB15, [id number] ####Associate Professor Of Art: DANIELLA PEREZ ([id number])[facility] [place] [address] [place] Creatinine [Mass/Vol] 1.07 mg/dL Normal 0.72-1.25 [facility] Comment on above: Performed By: #### L AB15, [id number] ####Associate Professor Of Art: DANIELLA PEREZ ([id number])[facility])[address] [place] [address] [place] GLOMERULAR FILTRATION RATE ML/MIN/1.73 SQ M.PREDICTED 69.3 mL/min/1.73m*2 Normal >60.0 [facility] Comment on above: Result Comment: Calc ulation based on the Chronic Kidney Disease Epidemiology Collaboration (CKD-EPI) equation refit without adjustment for race Performed By: #### L BARBARA, [id number] ####Associate Professor Of Art: DANIELLA PEREZ ([id number])[facility])[address] [place] [address] Glucose [Mass/Vol] 183 mg/dL High 82-115 [facility] Comment on above: Performed By: #### Verito JIMENEZ, [id number] ####Associate Professor Of Art: DANIELLA PEREZ ([id number])[address] Potassium [Moles/Vol] 4.1 mmol/L Normal 3.5-5.1 [facility] Comment on above: Result Comment: [facility] potassium values may be up to 0.5 mmol/L lower than serum values. Performed By: #### L BARBARA, [id number] ####Associate Professor Of Art: DANIELLA PEREZ ([id number])[place] [address] [place] Sodium [Moles/Vol] 139 mmol/L Normal 136-145 [facility] Comment on above: Performed By: #### L AB15, [id number] ####Associate Professor Of Art: DANIELLA PEREZ ([id number])[facility])[address] [place] [address] [place] Urea nitrogen [Mass/Vol] 25 mg/dL High 9-23 [facility] Comment on above: Performed By: #### L AB15, [id number] ####Associate Professor Of Art: DANIELLA PEREZ ([id number])[facility] ([facility])[address] [place] [address] Basic metabolic 1998 panelon 05-13-2024 Anion gap [Moles/Vol] 8 mmol/L 3 - 13 mmol/L [facility] Calcium [Mass/Vol] 8.9 mg/dL 8.8 - 10. 0 mg/dL [facility] Chloride [Moles/Vol] 107 mmol/L 98 - 10 7 mmol/L [facility] CO2 [Moles/Vol] 24 mmol/L 23 - 31 mmol/L [facility] Creatinine [Mass/Vol] 1.07 mg/dL 0.72 - 1.25 mg/dL [facility] GFR/1.73 sq M.predicted (S/P/Bld) [Vol rate/Area] 69.3 mL/min - PINF [facility] Glucose [Mass/Vol] 183 mg/dL High 82 - 115 mg/dL [facility] Interpretation and review of laboratory results Abnormal [facility] Potassium [Moles/Vol] 4.1 mmol/L 3.5 - 5.1 mmol/L [facility] Sodium [Moles/Vol] 139 mmol/L 136 - 145 mmol/L [facility] Urea nitrogen [Mass/Vol] 25 mg/dL High 9 - 23 mg/dL [facility] CBC (HEMOGRAM)on 05-13-2024 Erythrocyte distribution width (RBC) [Ratio] 14.6 % Normal 11.5-15.0 [facility] Comment on above: Performed By: #### L [id number] ####Associate Professor Of Art: DANIELLA PEREZ ([id number])[facility] ([facility])[address] [place] [address] Hematocrit (Bld) [Volume fraction] 25.6 % Low 40.0-52.0 [facility] Comment on above: Performed By: #### L [id number] ####Associate Professor Of Art: DANIELLA PEREZ ([id number])[facility])[address] [place] [address] Hemoglobin (Bld) [Mass/Vol] 8.2 g/dL Low 13.0-18.0 [facility] Comment on above: Performed By: #### L [id number] ####Associate Professor Of Art: DANIELLA PEREZ ([id number])[facility])[address] [place] [address] MCH (RBC) [Entitic mass] 27.6 pg Normal 26.0-34.0 [facility] Comment on above: Performed By: #### L [id number] ####Associate Professor Of Art: DANIELLA PEREZ ([id number])[facility])[address] [place] [address] MCHC 32.0 % Normal 30.5-36.0 [facility] Comment on above: Performed By: #### L [id number] ####Associate Professor Of Art: DANIELLA PEREZ ([id number])[facility])[address] [place] [address] MCV (RBC) [Entitic vol] 86.2 fL Normal 77.0-99.[address] [facility] Comment on above: Performed By: #### L [id number] ####Associate Professor Of Art: DANIELLA PEREZ ([id number])[facility])[address] [place] [address] Platelet mean volume (Bld) [Entitic vol] 10.2 fL Normal 9.0-12.7 [facility] Comment on above: Performed By: #### L [id number] ####Associate Professor Of Art: DANIELLA PEREZ ([id number])[facility])[address] [place] [address] Platelets (Bld) [#/Vol] 161 10*3/uL Normal 140-440 [facility] Comment on above: Performed By: #### L [id number] ####Associate Professor Of Art: DANIELLA PEREZ ([id number])[facility])[address] [place] [address] RBC (Bld) [#/Vol] 2.97 10*6/uL Low 4.40-5.90 [facility] Comment on above: Performed By: #### L [id number] ####Associate Professor Of Art: DANIELLA PEREZ ([id number])[facility])[address] [place] [address] WBC (Bld) [#/Vol] 10.5 10*3/uL Normal 3.6-10.7 [facility] Comment on above: Performed By: #### L [id number] ####Associate Professor Of Art: DANIELLA PEREZ ([id number])[facility])[address] [place] [address] CBC panel Auto (Bld)Ordered By: Joel Nagel on 05-13-2024 Erythrocyte distribution width (RBC) [Ratio] 14.6 % 11.5 - 15.0 % [facility] Hematocrit (Bld) [Volume fraction] 25.6 % Low 40.0 - 52.0 % [facility] Hemoglobin (Bld) [Mass/Vol] 8.2 g/dL Low 13.0 - 18.0 g/dL [facility] Interpretation and review of laboratory results Abnormal [facility] MCH (RBC) [Entitic mass] 27.6 pg 26. 0 - 34.0 pg [facility] MCHC (RBC) [Mass/Vol] 32 % 30.5 - 36.0 % [facility] MCV (RBC) [Entitic vol] 86.2 fL 77.0 - 99.0 fL [facility] Platelet mean volume (Bld) [Entitic vol] 10.2 fL 9.0 - 12.7 fL [facility] Platelets (Bld) [#/Vol] 161 10*3/uL 140 - 440 10*3/uL [facility] RBC (Bld) [#/Vol] 2.97 10*6/uL Low 4.40 - 5.9 0 10*6/uL [facility] WBC (Bld) [#/Vol] 10.5 10*3/uL 3.6 - 10.7 10*3/uL [facility] Laboratory - Chemistry and C hemistry - challengeon 05-13-2024 Glucose [Mass/Vol] 285 mg/dL High 70 - 100 mg/dL [facility] [employer] Glucose [Mass/Vol] 185 mg/dL High 70 - 100 mg/dL [facility] [employer] Glucose [Mass/Vol] 248 mg/dL High 70 - 100 mg/dL [facility] Glucose [Mass/Vol] 276 mg/dL High 70 - 100 mg/dL [facility] Magnesium [Mass/Vol] 2.1 mg/dL 1.6 - 2 .6 mg/dL [facility] MAGNESIUMon 05-13-2024 Magnesium [Mass/Vol] 2.1 mg/dL Normal 1.6-2.6 [facility] Comment on above: Result Comment: JEAN CARLOS Nuñez COMMENTS: Higher values can be expected in females during menses. Performed By: #### L AB15, [id number] ####Associate Professor Of Art: DANIELLA PEREZ ([id number])[facility] ([facility])[address] [place] [address] Magnesium [Mass/Vol]on 05-13 Interpretation and review of laboratory results Normal [facility] No Panel Informationon 05-13 Interpretation and review of laboratory results Abnormal [facility] Interpretation and review of laboratory results Abnormal [facility] Interpretation and review of laboratory results Abnormal [facility] Interpretation and review of laboratory results Abnormal [facility] Progress Noteon 05-13-2024 Progress Note - Attestation signed by Luz Hough DO at 05/13/2024 12:21 PM I have personally performed a [id number] diagnostic evaluation on this patient on date of service 05/13/24. History, labs, imaging studies, and electronic medical record have been reviewed by me. This note documented by the []lodging house keeper [x]JULIO CESAR reflects my history, exam, and [...] -endocrine following, insulin per their recs Cardiothoracic Surgery/[facility] Progress Note PATIENT NAME: Farhana [...] interval not displayed. CBC: Recent Labs 05/10/24200205/10/24 22105/11/24 0103 05/11/24 0730 05/12/24 0410 05/13/24 0456 [...] anemia/consumptive t (more content not included)... Normal [facility] Progress Note Department of Internal Medicine Division of Endocrinology, Diabetes, & Metabolism Endocrinology Note Patient Name: Farhana Thrasher : 1940 AGE: 84 y.o. 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 Normal [facility] XR CHEST 1 VIEWon 05-13-2024 XR CHEST 1 VIEW Patient Name: FARHANA THRASHER : 1940 Exam Date/Time: 05/13/2024 05:34 Procedure: XR CHEST [...] Signed Date/Time: 05/13/2024 5:44 AM EDT Normal [facility] XR Chest Single viewon 05-13 [facility] Radiology Study observation (narrative) [facility] XR Chest Single viewOrdered By: Kvng Martin on 05-13-2024 [facility] Work Phone: 30on 05-12-2024 30 Problem: [...] Goal: Assess Nutritional Intake Outcome: Progressing Normal [facility] BASIC METABOLIC PANELon 03-2 Anion gap [Moles/Vol] 8 mmol/L Normal 3-13 [facility] Comment on above: Performed By: #### L AB103, LAB15 ####Associate Professor Of Art: DANIELLA PEREZ ([phone])[facility] [place] [address] Calcium [Mass/Vol] 8.4 mg/dL Low 8.8-10.0 [facility] Comment on above: Performed By: #### L AB103, LAB15 ####Associate Professor Of Art: DANIELLA PEREZ ([id number])[facility] [place] [address] [place] Chloride [Moles/Vol] 107 mmol/L Normal 98-107 [facility] Comment on above: Performed By: #### L AB103, LAB15 ####Associate Professor Of Art: DANIELLA PEREZ ([phone])[facility] [place] [address] CO2 [Moles/Vol] 22 mmol/L Low 23-31 [facility] Comment on above: Performed By: #### L AB103, LAB15 ####Associate Professor Of Art: DANIELLA PEREZ ([phone])[facility] [place] [address] Creatinine [Mass/Vol] 0.82 mg/dL Normal 0.72-1.25 [facility] Comment on above: Performed By: #### L AB103, LAB15 ####Associate Professor Of Art: DANIELLA PEREZ ([id number])[facility] ([facility])[address] [place] [address] [place] GLOMERULAR FILTRATION RATE ML/MIN/1.73 SQ M.PREDICTED 87.7 mL/min/1.73m*2 Normal >60.0 [facility] Comment on above: Result Comment: Calc ulation based on the Chronic Kidney Disease Epidemiology Collaboration (CKD-EPI) equation refit without adjustment for race Performed By: #### L AB103, LAB15 ####Associate Professor Of Art: DANIELLA PEREZ ([id number])[facility])[address] [place] [address] [place] Glucose [Mass/Vol] 164 mg/dL High 82-115 [facility] Comment on above: Performed By: #### L AB103, LAB15 ####Associate Professor Of Art: DANIELLA PEREZ ([phone])[facility] ([facility])[address] [place] [address] Potassium [Moles/Vol] 4.3 mmol/L Normal 3.5-5.1 [facility] Comment on above: Result Comment: [facility] potassium values may be up to 0.5 mmol/L lower than serum values. Performed By: #### L AB103, LAB15 ####Associate Professor Of Art: DANIELLA PEREZ ([phone])[facility] ([facility])[address] [place] [address] Sodium [Moles/Vol] 137 mmol/L Normal 136-145 [facility] Comment on above: Performed By: #### L AB103, LAB15 ####Associate Professor Of Art: DANIELLA PEREZ ([id number])[facility] ([facility])[address] [place] [address] Urea nitrogen [Mass/Vol] 18 mg/dL Normal 9-23 [facility] Comment on above: Performed By: #### L AB103, LAB15 ####Associate Professor Of Art: DANIELLA PEREZ ([phone])[facility] ([facility])[address] [place] [address] Basic metabolic 1998 panelon 05-12-2024 Anion gap [Moles/Vol] 8 mmol/L 3 - 13 mmol/L [facility] Calcium [Mass/Vol] 8.4 mg/dL Low 8.8 - 10. 0 mg/dL [facility] Chloride [Moles/Vol] 107 mmol/L 98 - 10 7 mmol/L [facility] CO2 [Moles/Vol] 22 mmol/L Low 23 - 31 mmol/L [facility] Creatinine [Mass/Vol] 0.82 mg/dL 0.72 - 1.25 mg/dL [facility] GFR/1.73 sq M.predicted (S/P/Bld) [Vol rate/Area] 87.7 mL/min - PINF [facility] Glucose [Mass/Vol] 164 mg/dL High 82 - 115 mg/dL [facility] Interpretation and review of laboratory results Abnormal [facility] Potassium [Moles/Vol] 4.3 mmol/L 3.5 - 5.1 mmol/L [facility] Sodium [Moles/Vol] 137 mmol/L 136 - 145 mmol/L [facility] Urea nitrogen [Mass/Vol] 18 mg/dL 9 - 23 mg/dL [facility] CBC (HEMOGRAM)on 05-12-2024 Erythrocyte distribution width (RBC) [Ratio] 14.8 % Normal 11.5-15.0 [facility] Comment on above: Performed By: #### L AB294 ####Associate Professor Of Art: DANIELLA PEREZ ([id number])[address] Hematocrit (Bld) [Volume fraction] 22.9 % Low 40.0-52.0 [facility] Comment on above: Performed By: #### L AB294 ####Associate Professor Of Art: DANIELLA PEREZ ([id number])[address] Hemoglobin (Bld) [Mass/Vol] 7.5 g/dL Low 13.0-18.0 [facility] Comment on above: Performed By: #### L AB294 ####Associate Professor Of Art: DANIELLA PEREZ ([id number])[address] MCH (RBC) [Entitic mass] 27.8 pg Normal 26.0-34.0 [facility] Comment on above: Performed By: #### L AB294 ####Associate Professor Of Art: DANIELLA PEREZ ([id number])[address] MCHC 32.8 % Normal 30.5-36.0 [facility] Comment on above: Performed By: #### L AB294 ####Associate Professor Of Art: DANIELLA PEREZ ([id number])[address] MCV (RBC) [Entitic vol] 84.8 fL Normal 77.0-99.[address] [facility] Comment on above: Performed By: #### L AB294 ####Associate Professor Of Art: DANIELLA PEREZ ([id number])[facility] ([facility])[address] [place] [address] Platelet mean volume (Bld) [Entitic vol] 9.7 fL Normal 9.0-12.7 [facility] Comment on above: Performed By: #### L AB294 ####Associate Professor Of Art: DANIELLA PEREZ ([id number])[facility] ([facility])[address] [place] [address] Platelets (Bld) [#/Vol] 103 10*3/uL Low 140-440 [facility] Comment on above: Performed By: #### L AB294 ####Associate Professor Of Art: DANIELLA PEREZ ([id number])[facility] ([facility])[address] [place] [address] RBC (Bld) [#/Vol] 2.70 10*6/uL Low 4.40-5.90 [facility] Comment on above: Performed By: #### L AB294 ####Associate Professor Of Art: DANIELLA PEREZ ([id number])[facility] ([facility])[address] [place] [address] WBC (Bld) [#/Vol] 9.3 10*3/uL Normal 3.6-10.7 [facility] Comment on above: Performed By: #### L AB294 ####Associate Professor Of Art: DANIELLA PEREZ ([id number])[facility] ([facility])[address] [place] [address] CBC panel Auto (Bld)on 05-12 Erythrocyte distribution width (RBC) [Ratio] 14.8 % 11.5 - 15.0 % [facility] Hematocrit (Bld) [Volume fraction] 22.9 % Low 40.0 - 52.0 % [facility] Hemoglobin (Bld) [Mass/Vol] 7.5 g/dL Low 13.0 - 18.0 g/dL [facility] Interpretation and review of laboratory results Abnormal [facility] MCH (RBC) [Entitic mass] 27.8 pg 26. 0 - 34.0 pg [facility] MCHC (RBC) [Mass/Vol] 32.8 % 30.5 - 36.0 % [facility] MCV (RBC) [Entitic vol] 84.8 fL 77.0 - 99.0 fL [facility] Platelet mean volume (Bld) [Entitic vol] 9.7 fL 9.0 - 12.7 fL [facility] Platelets (Bld) [#/Vol] 103 10*3/uL Low 140 - 440 10*3/uL [facility] RBC (Bld) [#/Vol] 2.7 10*6/uL Low 4.40 - 5.9 0 10*6/uL [facility] WBC (Bld) [#/Vol] 9.3 10*3/uL 3.6 - 10.7 10*3/uL [facility] Laboratory - Chemistry and C hemistry - challengeon 05-12-2024 Glucose [Mass/Vol] 185 mg/dL High 70 - 100 mg/dL [facility] Glucose [Mass/Vol] 213 mg/dL High 70 - 100 mg/dL [facility] Glucose [Mass/Vol] 168 mg/dL High 70 - 100 mg/dL [facility] Glucose [Mass/Vol] 200 mg/dL High 70 - 100 mg/dL [facility] Magnesium [Mass/Vol] 2 mg/dL 1.6 - 2 .6 mg/dL [facility] Laboratory - Coagulationon 0 05-12-2024 aPTT Coag (PPP) [Time] 43.6 s High 20.0 - 30.5 s [facility] INR Coag (PPP) [Relative time] 1.2 {INR} High 0.9 - 1.1 [facility] PT Coag (Bld) [Time] 13.1 s High 9.0 - 1 2.0 s [facility] MAGNESIUMon 05-12-2024 Magnesium [Mass/Vol] 2.0 mg/dL Normal 1.6-2.[address] [facility] Comment on above: Result Comment: JEAN CARLOS Nuñez COMMENTS: Higher values can be expected in females during menses. Performed By: #### L AB103, LAB15 ####Associate Professor Of Art: DANIELLA PEREZ ([id number])[facility] ([address] Magnesium [Mass/Vol]on 05-12 Interpretation and review of laboratory results Normal [facility] No Panel Informationon 05-12 Interpretation and review of laboratory results Abnormal [facility] Interpretation and review of laboratory results Abnormal [facility] Interpretation and review of laboratory results Abnormal [facility] Interpretation and review of laboratory results Abnormal [facility] Interpretation and review of laboratory results Abnormal [facility] PROTIME AND APTTon aPTT Coag (Bld) [Time] 43.6 s High 20.0-30.5 [facility] Comment on above: Performed By: #### L [id number] ####Associate Professor Of Art: DANIELLA PEREZ ([id number])[facility])[address] [place] [address] INR Coag (PPP) [Relative time] 1.2 {INR} High 0.9-1.1 [facility] Comment on above: Result Comment: Poli mmended [...] prevent Myocardial Infarction Performed By: #### L [id number] ####Associate Professor Of Art: DANIELLA PEREZ ([id number])[facility])[address] [place] [address] PT Coag (PPP) [Time] 13.1 s High 9.0-12.0 [facility] Comment on above: Performed By: #### L [id number] ####Associate Professor Of Art: DANIELLA PEREZ ([id number])[facility])[address] [place] [address] Progress Noteon 05-12-2024 Progress Note Cardiothoracic Surgery [...] continue to monitor. [facility] Progress Note PHYSICAL THERAPY [facility] Treatment Note Name/MRN: Nimisha Thrasher ([id number]) Date of : 1940 Age: 84 y.o. [...] 6-9 x5 reps due to fatigue IS: [id number] mL x5 reps Acapella: x5 reps Plan [...] (gait & tp) Sosa Alfred, FRANKIE Arguello, SENIOR DEVELOPER [facility] Progress Note - Attestation signed by Lilian Cisse MD at 05/12/2024 1:56 PM I have personally performed a face to face diagnostic evaluation on this patient. In addition, I have reviewed the resident's/RESTORATIVE CARE TECHNICIAN/VERTICAL BORER's care plan and agree with those findings [...] imaging are reviewed as detailed in the resident's/RESTORATIVE CARE TECHNICIAN/VERTICAL BORER's note Department of Internal Medicine Division of Endocrinology, Diabetes, & Metabolism Endocrinology Note Patient Name: Farhana Thrasher : 1940 AGE: 84 y.o. Room/Bed: T1-116/T1-116 A Admission Date: 05/10/2024 Visit Date: 05/12/2024 Reason for Endocrine Consult: post op heart Provider/Team Requesting Consult: CTS PCP: KELSEY MOON MD Outpt Roofer Applicator: No ASSESSMENT: DM2 with hyperglycemia and fpc insulin Stress hyperglycemia CABGX3 HLD/CAD Obesity Body [...] 5 MG (more content not included)... Normal [facility] Progress Note - Attestation signed by Luz Hough DO at 05/12/2024 3:54 PM I have personally performed a [id number] diagnostic evaluation on this patient on date of service 05/12/24. History, labs, imaging studies, and electronic medical record have been reviewed by me. This note documented by the []lodging house keeper [x]JULIO CESAR reflects my history, exam, and [...] PATIENT NAME: Farhana Thrasher DATE: 05/12/24 HPI: Nimisha Thrasher is a 84 y.o. male referred [...] PAP at night. Weaned off of pressors, [place] removed. Pain tolerable, up walking with nursing. [...] Normal Post-o (more content not included)... Normal [facility] XR CHEST 1 VIEWon 05-12-2024 XR CHEST 1 VIEW Patient Name: FARHANA THRASHER : 1940 [facility]#: [id number] Exam Date/Time: 05/12/2024 08:24 Procedure: XR CHEST 1 VIEW Ordering Provider: HANDY KYLE Reason For Exam: Shortness of breath CHEST - PORTABLE: CLINICAL INDICATION: Shortness of breath TECHNIQUE: Portable AP COMPARISON: One day ago. IMPRESSION: FINDINGS/IMPRESSION: Limitations: Patient positioning/rotation Lines, tubes, and devices: Interval removal of [place]-Bár[place] catheter with right IJ introducer sheath remaining. [...] Signed Date/Time: 05/12/2024 10:39 AM EDT Normal [facility] XR Chest Single viewon 05-12 [facility] Radiology Study observation (narrative) [facility] XR Chest Single viewOrdered By: Dickson Singh on 05-12-2024 [facility] Work Phone: 30on 05-11-2024 30 Problem: [...] Goal: Assess Nutritional Intake Outcome: Progressing Normal [facility] BASIC METABOLIC PANELon 04-23 Anion gap [Moles/Vol] 6 mmol/L Normal 3-13 [facility] Comment on above: Performed By: #### L AB103, LAB15 ####Associate Professor Of Art: DANIELLA PEREZ ([id number])[facility] ([facility])[address] [place] [address] Calcium [Mass/Vol] 8.1 mg/dL Low 8.8-10.0 [facility] Comment on above: Performed By: #### L AB103, LAB15 ####Associate Professor Of Art: DANIELLA PEREZ ([id number])[facility] [place] [address] [place] Chloride [Moles/Vol] 113 mmol/L High 98-107 [facility] Comment on above: Performed By: #### L AB103, LAB15 ####Associate Professor Of Art: DANIELLA PEREZ ([id number])[facility] ([facility])[address] [place] [address] [place] CO2 [Moles/Vol] 21 mmol/L Low 23-31 [facility] Comment on above: Performed By: #### L AB103, LAB15 ####Associate Professor Of Art: DANIELLA PEREZ ([phone])[facility])[address] [place] [address] Creatinine [Mass/Vol] 0.80 mg/dL Normal 0.72-1.25 [facility] Comment on above: Performed By: #### L AB103, LAB15 ####Associate Professor Of Art: DANIELLA PEREZ ([phone])[facility])[address] [place] [address] GLOMERULAR FILTRATION RATE ML/MIN/1.73 SQ M.PREDICTED 88.4 mL/min/1.73m*2 Normal >60.0 [facility] Comment on above: Result Comment: Calc ulation based on the Chronic Kidney Disease Epidemiology Collaboration (CKD-EPI) equation refit without adjustment for race Performed By: #### L SUKUMAR, LAB15 ####Associate Professor Of Art: DANIELLA PEREZ ([id number])[facility])[address] [place] [address] Glucose [Mass/Vol] 122 mg/dL High 82-115 [facility] Comment on above: Performed By: #### L 103, LAB15 ####Associate Professor Of Art: DANIELLA PEREZ ([id number])[address] Potassium [Moles/Vol] 4.4 mmol/L Normal 3.5-5.1 [facility] Comment on above: Result Comment: [facility] potassium values may be up to 0.5 mmol/L lower than serum values. Performed By: #### L AB103, LAB15 ####Associate Professor Of Art: DANIELLA PEREZ ([id number])[address] Sodium [Moles/Vol] 140 mmol/L Normal 136-145 [facility] Comment on above: Performed By: #### L AB103, LAB15 ####Associate Professor Of Art: DANIELLA PEREZ ([id number])[facility] [place] [address] Urea nitrogen [Mass/Vol] 14 mg/dL Normal 9-23 [facility] Comment on above: Performed By: #### L AB103, LAB15 ####Associate Professor Of Art: DANIELLA PEREZ ([id number])[facility] ([facility])[address] [place] [address] BLOOD GAS ARTERIALon 20-2 025 AMOUNT OF OXYGEN 4 Normal [facility] Comment on above: Order Comment: 30 mi n after vent changes Performed By: #### L AB76 ####Associate Professor Of Art: DANIELLA PEREZ ([id number])[facility] ([facility])[address] [place] [address] Base excess Calc (Bld) [Moles/Vol] -2.8000 mmol/L Normal -3.0-3.0 [facility] Comment on above: Order Comment: 30 mi n after vent changes Performed By: #### L AB76 ####Associate Professor Of Art: DANIELLA PEREZ ([id number])[facility] ([facility])[address] [place] [address] CO2 [Moles/Vol] 22.7 mmol/L Low 23.0-27.0 [facility] Comment on above: Order Comment: 30 mi n after vent changes Performed By: #### L AB76 ####Associate Professor Of Art: DANIELLA PEREZ ([id number])[facility] ([facility])[address] [place] [address] HCO3 (Bld) [Moles/Vol] 21.6 mmol/L Normal 21.0-25.0 [facility] Comment on above: Order Comment: 30 mi n after vent changes Performed By: #### L AB76 ####Associate Professor Of Art: DANIELLA PEREZ ([phone])[facility] ([facility])[address] [place] [address] Hemoglobin (Bld) [Mass/Vol] 7.9 g/dL Normal Screen only [facility] Comment on above: Order Comment: 30 mi n after vent changes Performed By: #### L AB76 ####Associate Professor Of Art: DANIELLA PEREZ ([id number])[facility] [place] [address] OXYGEN SATURATION (%) IN ARTERIAL BLOOD 98.5 % Normal 95.0-100.0 [facility] Comment on above: Order Comment: 30 mi n after vent changes Performed By: #### L AB76 ####Associate Professor Of Art: DANIELLA PEREZ ([id number])[facility] [place] [address] PCO2 ARTERIAL 35.5 mm Hg Normal >35.0-<45.0 [facility] Comment on above: Order Comment: 30 mi n after vent changes Performed By: #### L AB76 ####Associate Professor Of Art: DANIELLA PEREZ ([id number])[facility] ([facility])[address] [place] [address] PH ARTERIAL 7.402 Normal 7.350-7.450 [facility] Comment on above: Order Comment: 30 mi n after vent changes Performed By: #### L AB76 ####Associate Professor Of Art: DANIELLA PEREZ ([id number])[facility] [place] [address] PO2 ARTERIAL 157.0 mm Hg High 80.0-100.0 [facility] Comment on above: Order Comment: 30 mi n after vent changes Performed By: #### L AB76 ####Associate Professor Of Art: DANIELLA PEREZ ([id number])[facility] ([facility])[address] [place] [address] SOURCE OF OXYGEN Nasal Cannula (LPM) Normal [facility] Comment on above: Order Comment: 30 mi n after vent changes Performed By: #### L AB76 ####Associate Professor Of Art: DANIELLA PEREZ ([id number])[facility] ([facility])[address] [place] [address] Basic metabolic 1998 panelon 05-11-2024 Anion gap [Moles/Vol] 6 mmol/L 3 - 13 mmol/L [facility] Calcium [Mass/Vol] 8.1 mg/dL Low 8.8 - 10. 0 mg/dL [facility] Chloride [Moles/Vol] 113 mmol/L High 98 - 10 7 mmol/L [facility] CO2 [Moles/Vol] 21 mmol/L Low 23 - 31 mmol/L [facility] Creatinine [Mass/Vol] 0.8 mg/dL 0.72 - 1.25 mg/dL [facility] GFR/1.73 sq M.predicted (S/P/Bld) [Vol rate/Area] 88.4 mL/min - PINF [facility] Glucose [Mass/Vol] 122 mg/dL High 82 - 115 mg/dL [facility] Interpretation and review of laboratory results Abnormal [facility] Potassium [Moles/Vol] 4.4 mmol/L 3.5 - 5.1 mmol/L [facility] Sodium [Moles/Vol] 140 mmol/L 136 - 145 mmol/L [facility] Urea nitrogen [Mass/Vol] 14 mg/dL 9 - 23 mg/dL [facility] CALCIUM, IONIZEDon CALCIUM IONIZED 4.00 mg/dL Low 4.30-5.20 [facility] Comment on above: Order Comment: Obtai n PRN and check ionized Ca level if serum Ca level less than 8.0 Performed By: #### L AB54 ####Associate Professor Of Art: DANIELLA PEREZ ([phone])[address] PH, IONIZED CALCIUM 7.43 Normal 7.31-7.46 [facility] Comment on above: Order Comment: Obtai n PRN and check ionized Ca level if serum Ca level less than 8.0 Performed By: #### L [id number] ####Associate Professor Of Art: DANIELLA PEREZ ([id number])[address] Calcium.ionized [Moles/Vol]O rdered By: Carlos Curiel on 05-11-2024 Calcium.ionized (Bld) [Moles/Vol] 4 mg/dL Low 4.30 - 5.20 mg/dL [facility] Interpretation and review of laboratory results Abnormal [facility] PH, IONIZED CALCIUM 7.43 7.31 - 7.46 [facility] ECG 12-LEADon 05-11-2024 ECG 12-LEAD IMPRESSION: Sinus rhythm 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 ECG 12-LEAD IMPRESSION: Sinus rhythm RBBB and LAFB Minimal ST elevation, anterolateral leads Electronically Signed On 05-11-2024 09:12:[address] [facility] HEMOGLOBIN AND HEMATOCRIT, B LOODon 05-11-2024 Hematocrit (Bld) [Volume fraction] 23.7 % Low 40.0-52.0 [facility] Comment on above: Order Comment: Recom mend 1 hour post transfusion Performed By: #### L [id number] ####Associate Professor Of Art: DANIELLA PEREZ ([id number])[facility] ([facility])[address] [place] [address] Hemoglobin (Bld) [Mass/Vol] 7.7 g/dL Low 13.0-18.0 [facility] Comment on above: Order Comment: Recom mend 1 hour post transfusion Performed By: #### L [id number] ####Associate Professor Of Art: DANIELLA PEREZ ([id number])[facility] ([facility])[address] [place] [address] Hemoglobin (Bld) [Mass/Vol]O rdered By: Charles Gordon on 05-11-2024 Hematocrit (Bld) [Volume fraction] 23.7 % Low 40.0 - 52.0 % [facility] Interpretation and review of laboratory results Abnormal [facility] Laboratory - Chemistry and C hemistry - challengeon 05-11-2024 Glucose [Mass/Vol] 192 mg/dL High 70 - 100 mg/dL [facility] [employer] Glucose [Mass/Vol] 137 mg/dL High 70 - 100 mg/dL [facility] [employer] Glucose [Mass/Vol] 127 mg/dL High 70 - 100 mg/dL [facility] [employer] Glucose [Mass/Vol] 150 mg/dL High 70 - 100 mg/dL [facility] Glucose [Mass/Vol] 128 mg/dL High 70 - 100 mg/dL [facility] Glucose [Mass/Vol] 148 mg/dL High 70 - 100 mg/dL [facility] Glucose [Mass/Vol] 137 mg/dL High 70 - 100 mg/dL [facility] Glucose [Mass/Vol] 96 mg/dL 70 - 100 mg/dL [facility] Magnesium [Mass/Vol] 2.1 mg/dL 1.6 - 2 .6 mg/dL [facility] Glucose [Mass/Vol] 122 mg/dL High 70 - 100 mg/dL [facility] Glucose [Mass/Vol] 132 mg/dL High 70 - 100 mg/dL [facility] Glucose [Mass/Vol] 149 mg/dL High 70 - 100 mg/dL [facility] Glucose [Mass/Vol] 151 mg/dL High 70 - 100 mg/dL [facility] Glucose [Mass/Vol] 148 mg/dL High 70 - 100 mg/dL [facility] Glucose [Mass/Vol] 183 mg/dL High 70 - 100 mg/dL [facility] Laboratory - Chemistry and C hemistry - challengeOrdered By: Jose Seth on 05-11-2024 Base excess Calc (Bld) [Moles/Vol] -2.8000 mmol/L -3.0 - 3.0 mmol/L [facility] CO2 (Bld) [Partial pressure] 35.5 mm[Hg] - PINF [facility] CO2 [Moles/Vol] 22.7 mmol/L Low 23.0 - 27.0 mmol/L [facility] HCO3 (Bld) [Moles/Vol] 21.6 mmol/L 21.0 - 25.0 mmol/L [facility] Oxygen (Bld) [Partial pressure] 157 mm[Hg] High [facility] pH (Bld) 7.402 [pH] 7.350 - 7.450 [facility] Laboratory - Coagulationon 0 05-11-2024 aPTT Coag (PPP) [Time] 36.9 s High 20.0 - 30.5 s [facility] INR Coag (PPP) [Relative time] 1.1 {INR} 0.9 - 1.1 [facility] PT Coag (Bld) [Time] 12.7 s High 9.0 - 1 2.0 s [facility] Laboratory - Hematology and Cell countsOrdered By: Jose Seth on 05-11-2024 Hemoglobin (Bld) [Mass/Vol] 7.9 g/dL Screen only [facility] Laboratory - Hematology and Cell countsOrdered By: Charles Gordon on 05-11-2024 Hemoglobin (Bld) [Mass/Vol] 7.7 g/dL Low 13.0 - 18.0 g/dL [facility] MAGNESIUMon 05-11-2024 Magnesium [Mass/Vol] 2.1 mg/dL Normal 1.6-2.6 [facility] Comment on above: Result Comment: JEAN CARLOS Nuñez COMMENTS: Higher values can be expected in females during menses. Performed By: #### L [id number], LAB15 ####Associate Professor Of Art: DANIELLA PEREZ ([phone])[facility] ([facility] Magnesium [Mass/Vol]on 05-11 Interpretation and review of laboratory results Normal [facility] No Panel Informationon 05-11 Interpretation and review of laboratory results Abnormal [facility] Interpretation and review of laboratory results Abnormal [facility] Interpretation and review of laboratory results Abnormal [facility] Interpretation and review of laboratory results Abnormal [facility] P [place] 25 degrees [facility] TN Interval 182 ms [facility] QRS [place] -46 degrees [facility] QRSD Interval 130 ms [facility] QT Interval 397 ms [facility] QTC Interval 435 ms [facility] T Wave [place] 39 degrees [facility] Interpretation and review of laboratory results Abnormal [facility] Interpretation and review of laboratory results Abnormal [facility] Interpretation and review of laboratory results Normal [facility] Interpretation and review of laboratory results Abnormal [facility] Interpretation and review of laboratory results Abnormal [facility] Interpretation and review of laboratory results Abnormal [facility] Interpretation and review of laboratory results Abnormal [facility] Interpretation and review of laboratory results Abnormal [facility] Interpretation and review of laboratory results Abnormal [facility] Interpretation and review of laboratory results Abnormal [facility] No Panel InformationOrdered By: Lalit Fabian on 05-11-2024 P [place] 13 degrees [facility] Work Phone: TN Interval 194 ms [facility] Work Phone: QRS [place] -61 degrees [facility] Work Phone: QRSD Interval 163 ms [facility] Work Phone: QT Interval 477 ms [facility] Work Phone: QTC Interval 511 ms [facility] Work Phone: T Wave [place] 68 degrees [facility] Work Phone: [facility] Work Phone: No Panel InformationOrdered By: Jose Seth on 05-11-2024 Amount Of Oxygen 4 [facility] Interpretation and review of laboratory results Abnormal [facility] Source Of Oxygen Nasal Cannula (LPM) [facility] PROTIME AND APTTon aPTT Coag (Bld) [Time] 36.9 s High 20.0-30.5 [facility] Comment on above: Performed By: #### L [id number] ####Associate Professor Of Art: DANIELLA PEREZ ([id number])[facility] ([employer])[address] [place] [address] INR Coag (PPP) [Relative time] 1.1 {INR} Normal 0.9-1.1 [facility] Comment on above: Performed By: #### L [id number] ####Associate Professor Of Art: DANIELLA PEREZ ([id number])[facility] ([facility])[address] [place] [address] PT Coag (PPP) [Time] 12.7 s High 9.0-12.0 [facility] Comment on above: Performed By: #### L [id number] ####Associate Professor Of Art: DANIELLA PEREZ ([id number])[facility] ([facility])[address] [place] [address] Progress Noteon 05-11-2024 Progress Note - Attestation signed by Lilian Cisse MD at 05/11/2024 12:36 PM I have personally performed a face to face diagnostic evaluation on this patient. In addition, I have reviewed the resident's/RESTORATIVE CARE TECHNICIAN/VERTICAL BORER's care plan and agree with those findings [...] imaging are reviewed as detailed in the resident's/RESTORATIVE CARE TECHNICIAN/VERTICAL BORER's note Department of Internal Medicine Division of Endocrinology, Diabetes, & Metabolism Endocrinology Note Patient Name: Farhana Thrasher : 1940 AGE: 84 y.o. Room/Bed: T1-116/T1-116 A Admission Date: 05/10/2024 Visit Date: 05/11/2024 Reason for Endocrine Consult: post op heart Provider/Team Requesting Consult: CTS PCP: KELSEY MOON MD Outpt Roofer Applicator: No ASSESSMENT: DM2 with hyperglycemia and fpc insulin Stress hyperglycemia CABGX3 HLD/CAD Obesity Body [...] pale. Comments: (more content not included)... Normal [facility] Progress Note - Attestation signed by Luz Hough DO at 05/11/2024 5:59 PM I have personally performed a [id number] diagnostic evaluation on this patient on date of service 05/11/24. History, labs, imaging studies, and electronic medical record have been reviewed by me. This note documented by the []lodging house keeper [x]JULIO CESAR reflects my history, exam, and [...] PATIENT NAME: Farhana Thrasher DATE: 05/11/24 HPI: Nimisha Thrasher is a 84 y.o. male referred [...] Blood Temperature: 37.3 ?C (99.1 ?F) PAP: 17/1 PAP (Mean): 11 mmHg CVP [...] or diaphoretic. Neck: Comments: Central line and [place]. Cardiovascular: Rate and Rhythm: Normal rate and [...] deficit p (more content not included)... Normal [facility] TYLOR CARDIAC PANELon 2024 HEPTEM A10 51 mm Normal 51-72 [facility] Comment on above: Performed By: #### L [id number] ####Associate Professor Of Art: DANIELLA PEREZ ([id number])[facility] ([facility])[address] [place] [address] HEPTEM A20 57 mm Normal 51-72 [facility] Comment on above: Performed By: #### L [id number] ####Associate Professor Of Art: DANIELLA PEREZ ([id number])[facility] ([facility])[address] [place] [address] [place] HEPTEM ALPHA 68 DEGREES Low 70-81 [facility] Comment on above: Performed By: #### L [id number] ####Associate Professor Of Art: DANIELLA PEREZ ([id number])[facility] ([facility])[address] [place] [address] [place] HEPTEM CLOT FORMATION TIME 114 s High 45-110 [facility] Comment on above: Performed By: #### L [id number] ####Associate Professor Of Art: DANIELLA PEREZ ([id number])[facility] ([facility])[address] [place] [address] [place] HEPTEM CLOTTING TIME 170 s Normal 122-208 [facility] Comment on above: Performed By: #### L [id number] ####Associate Professor Of Art: DANIELLA PEREZ ([id number])[facility] ([facility])[address] [place] [address] [place] HEPTEM MAXIMUM CLOT FIRMNESS 57 mm Normal 51-72 [facility] Comment on above: Performed By: #### L [id number] ####Associate Professor Of Art: DANIELLA PEREZ ([id number])[facility] ([facility])[address] [place] [address] [place] INTEM A10 50 mm Low 51-72 [facility] Comment on above: Performed By: #### L [id number] ####Associate Professor Of Art: DANIELLA PEREZ ([id number])[facility] ([facility])[address] [place] [address] [place] INTEM A20 56 mm Normal 51-72 [facility] Comment on above: Performed By: #### L [id number] ####Associate Professor Of Art: DANIELLA PEREZ ([id number])[facility] ([facility])[address] [place] [address] [place] INTEM ALPHA 70 DEGREES Normal 70-81 [facility] Comment on above: Performed By: #### L [id number] ####Associate Professor Of Art: DANIELLA PEREZ ([id number])[facility]OD [facility] ([facility])[address] [place] [address] [place] INTEM CLOT FORMATION TIME 103 s Normal 45-110 [facility] Comment on above: Performed By: #### L [id number] ####Associate Professor Of Art: DANIELLA PEREZ ([id number])[facility] ([facility])[address] [place] [address] [place] INTEM CLOTTING TIME 198 s Normal 122-208 [facility] Comment on above: Performed By: #### L [id number] ####Associate Professor Of Art: DANIELLA PEREZ ([id number])[facility] BLOOD [facility] ([facility])[address] [place] [address] INTEM MAXIMUM CLOT FIRMNESS 57 mm Normal 51-72 [facility] Comment on above: Performed By: #### L [id number] ####Associate Professor Of Art: DANIELLA PEREZ ([id number])[facility] BLOOD [facility] ([facility])[address] [place] [address] Thromboelastography after ad dtion of heparinase panel (Bld)Ordered By: Ca Delarosa on 05-11-2024 Clot formation.intrinsic coagulation system activated Rotational TEG (Bld) [Time] 198 s 122 - 208 s [facility] Clot formation.intrinsic coagulation system activated Rotational TEG (Bld) [Time] 103 s 45 - 110 s [facility] Clot formation.intrinsic coagulation system activated Rotational TEG (Bld) [Time] 70 [facility] Clot formation.intrinsic coagulation system activated Rotational TEG (Bld) [Time] 50 mm Low 51 - 72 mm [facility] Clot formation.intrinsic coagulation system activated Rotational TEG (Bld) [Time] 56 mm 51 - 72 mm [facility] Clot formation.intrinsic coagulation system activated Rotational TEG (Bld) [Time] 57 mm 51 - 72 mm [facility] Clot formation.intrinsic coagulation system activated.heparin insensitive Rotational TEG (Bld) [Time] 170 s 122 - 208 s [facility] Clot formation.intrinsic coagulation system activated.heparin insensitive Rotational TEG (Bld) [Time] 114 s High 45 - 110 s [facility] Clot formation.intrinsic coagulation system activated.heparin insensitive Rotational TEG (Bld) [Time] 68 Low [facility] Clot formation.intrinsic coagulation system activated.heparin insensitive Rotational TEG (Bld) [Time] 51 mm 51 - 72 mm [facility] Clot formation.intrinsic coagulation system activated.heparin insensitive Rotational TEG (Bld) [Time] 57 mm 51 - 72 mm [facility] Interpretation and review of laboratory results Abnormal [facility] Maximum clot firmness after addition of heparinase TEG (Bld) [Length] 57 mm 51 - 72 mm [facility] Health [facility] Vital signsOrdered By: Richi Fabian on 05-11-2024 Heart rate 71 /min bpm [facility] [employer] Work Phone: Vital signson 05-11-2024 Heart rate 72 /min bpm [facility] XR CHEST 1 VIEWon 05-11-2024 XR CHEST 1 VIEW Patient Name: FARHANA THRASHER : 1940 [facility]#: [id number] Exam Date/Time: 05/11/2024 05:30 Procedure: XR CHEST 1 VIEW Ordering Provider: HANDY KYLE Reason For Exam: Shortness of breath CHEST - PORTABLE: CLINICAL INDICATION: Respiratory distress for follow up TECHNIQUE: Portable AP COMPARISON: One day ago FINDINGS: Tubes, lines and devices: Right [place] catheter with its tip in the region [...] Signed Date/Time: 05/11/2024 8:19 AM EDT Normal [facility] XR Chest Single viewon 05-11 [facility] Radiology Study observation (narrative) [facility] XR Chest Single viewOrdered By: Barron Long on 05-11-2024 [facility] [employer] Phone: BASIC METABOLIC PANELon 04-22 Anion gap [Moles/Vol] 9 mmol/L Normal 3-13 [facility] Comment on above: Performed By: #### L [id number] ####Associate Professor Of Art: DANIELLA PEREZ ([id number])[facility] ([facility])[address] [place] [address] Calcium [Mass/Vol] 8.2 mg/dL Low 8.8-10.0 [facility] Comment on above: Performed By: #### L [id number] ####Associate Professor Of Art: DANIELLA PEREZ ([id number])[facility] ([facility])[address] [place] [address] Chloride [Moles/Vol] 115 mmol/L High 98-107 [facility] Comment on above: Performed By: #### L AB15 ####Associate Professor Of Art: DANIELLA PEREZ ([id number])[facility])[address] [place] [address] CO2 [Moles/Vol] 19 mmol/L Low 23-31 [facility] Comment on above: Performed By: #### L AB15 ####Associate Professor Of Art: DANIELLA PEREZ ([id number])[facility])[address] [place] [address] Creatinine [Mass/Vol] 0.84 mg/dL Normal 0.72-1.25 [facility] Comment on above: Performed By: #### L AB15 ####Associate Professor Of Art: DANIELLA PEREZ ([id number])[facility])[address] [place] [address] GLOMERULAR FILTRATION RATE ML/MIN/1.73 SQ M.PREDICTED 87.1 mL/min/1.73m*2 Normal >60.0 [facility] Comment on above: Result Comment: Calc ulation based on the Chronic Kidney Disease Epidemiology Collaboration (CKD-EPI) equation refit without adjustment for race Performed By: #### L AB15 ####Associate Professor Of Art: DANIELLA PEREZ ([id number])[facility])[address] [place] [address] Glucose [Mass/Vol] 146 mg/dL High 82-115 [facility] Comment on above: Performed By: #### L AB15 ####Associate Professor Of Art: DANIELLA PEREZ ([id number])[facility])[address] [place] [address] Potassium [Moles/Vol] 4.6 mmol/L Normal 3.5-5.1 [facility] Comment on above: Result Comment: [facility] potassium values may be up to 0.5 mmol/L lower than serum values. Performed By: #### L AB15 ####Associate Professor Of Art: DANIELLA PEREZ ([id number])[facility] ([facility])[address] [place] [address] [place] Sodium [Moles/Vol] 143 mmol/L Normal 136-145 [facility] Comment on above: Performed By: #### L AB15 ####Associate Professor Of Art: DANIELLA PEREZ ([id number])[facility] [place] [address] Urea nitrogen [Mass/Vol] 16 mg/dL Normal 9-23 [facility] Comment on above: Performed By: #### L AB15 ####Associate Professor Of Art: DANIELLA PEREZ ([id number])[facility] [place] [address] Anion gap [Moles/Vol] 6 mmol/L Normal 3-13 [facility] Comment on above: Performed By: #### L [id number], [id number], LAB15 ####Associate Professor Of Art: DANIELLA PEREZ ([id number])[facility] [place] [address] Calcium [Mass/Vol] 9.8 mg/dL Normal 8.8-10.0 [facility] Comment on above: Performed By: #### L AB113, [id number], LAB15 ####Associate Professor Of Art: DANIELLA PEREZ ([id number])[facility] ([facility])[address] [place] [address] [place] Chloride [Moles/Vol] 111 mmol/L High 98-107 [facility] Comment on above: Performed By: #### L AB113, [id number], LAB15 ####Associate Professor Of Art: DANIELLA PEREZ ([id number])[facility] [place] [address] [place] CO2 [Moles/Vol] 22 mmol/L Low 23-31 [facility] Comment on above: Performed By: #### L AB113, [id number], LAB15 ####Associate Professor Of Art: DANIELLA PEREZ ([id number])[facility] [place] [address] [place] Creatinine [Mass/Vol] 0.84 mg/dL Normal 0.72-1.25 [facility] Comment on above: Performed By: #### L AB113, [id number], LAB15 ####Associate Professor Of Art: DANIELLA PEREZ ([id number])[facility])[address] [place] [address] GLOMERULAR FILTRATION RATE ML/MIN/1.73 SQ M.PREDICTED 87.1 mL/min/1.73m*2 Normal >60.0 [facility] Comment on above: Result Comment: Calc ulation based on the Chronic Kidney Disease Epidemiology Collaboration (CKD-EPI) equation refit without adjustment for race Performed By: #### L AB113, [id number], LAB15 ####Associate Professor Of Art: DANIELLA PEREZ ([id number])[facility])[address] [place] [address] Glucose [Mass/Vol] 144 mg/dL High 82-115 [facility] Comment on above: Performed By: #### Verito ABAnnamaria, [id number], LAB15 ####Associate Professor Of Art: DANIELLA PEREZ ([id number])[address] Potassium [Moles/Vol] 3.6 mmol/L Normal 3.5-5.1 [facility] Comment on above: Result Comment: [facility] potassium values may be up to 0.5 mmol/L lower than serum values. Performed By: #### L AB113, [id number], LAB15 ####Associate Professor Of Art: DANIELLA PEREZ ([id number])[facility])[address] [place] [address] [place] Sodium [Moles/Vol] 139 mmol/L Normal 136-145 [facility] Comment on above: Performed By: #### L AB113, [id number], LAB15 ####Associate Professor Of Art: DANIELLA PEREZ ([id number])[place] [address] [place] Urea nitrogen [Mass/Vol] 17 mg/dL Normal 9-23 [facility] Comment on above: Performed By: #### L AB113, [id number], LAB15 ####Associate Professor Of Art: DANIELLA PEREZ ([id number])[facility] [place] [address] BLOOD GAS ARTERIALon 025 AMOUNT OF OXYGEN 2lt Normal [facility] Comment on above: Order Comment: 30 mi n after vent changes Performed By: #### L AB76 ####Associate Professor Of Art: DANIELLA PEREZ ([id number])[facility] [place] [address] Base excess Calc (Bld) [Moles/Vol] -2.5000 mmol/L Normal -3.0-3.0 [facility] Comment on above: Order Comment: 30 mi n after vent changes Performed By: #### L AB76 ####Associate Professor Of Art: DANIELLA PEREZ ([id number])[facility] [place] [address] CO2 [Moles/Vol] 23.1 mmol/L Normal 23.0-27.0 [facility] Comment on above: Order Comment: 30 mi n after vent changes Performed By: #### L AB76 ####Associate Professor Of Art: DANIELLA PEREZ ([id number])[facility] ([facility])[address] [place] [address] HCO3 (Bld) [Moles/Vol] 22.0 mmol/L Normal 21.0-25.0 [facility] Comment on above: Order Comment: 30 mi n after vent changes Performed By: #### L AB76 ####Associate Professor Of Art: DANIELLA PEREZ ([id number])[facility] ([facility])[address] [place] [address] Hemoglobin (Bld) [Mass/Vol] 8.9 g/dL Normal Screen only [facility] Comment on above: Order Comment: 30 mi n after vent changes Performed By: #### L [id number] ####Associate Professor Of Art: DANIELLA PEREZ ([phone])[facility])[address] [place] [address] OXYGEN SATURATION (%) IN ARTERIAL BLOOD 98.2 % Normal 95.0-100.0 [facility] Comment on above: Order Comment: 30 mi n after vent changes Performed By: #### L [id number] ####Associate Professor Of Art: DANIELLA PEREZ ([phone])[facility])[address] [place] [address] PCO2 ARTERIAL 36.3 mm Hg Normal >35.0-<45.0 [facility] Comment on above: Order Comment: 30 mi n after vent changes Performed By: #### L [id number] ####Associate Professor Of Art: DANIELLA PEREZ ([phone])[facility])[address] [place] [address] PH ARTERIAL 7.400 Normal 7.350-7.450 [facility] Comment on above: Order Comment: 30 mi n after vent changes Performed By: #### L [id number] ####Associate Professor Of Art: DANIELLA PEREZ ([phone])[facility])[address] [place] [address] PO2 ARTERIAL 123.3 mm Hg High 80.0-100.0 [facility] Comment on above: Order Comment: 30 mi n after vent changes Performed By: #### L [id number] ####Associate Professor Of Art: DANIELLA PEREZ ([id number])[facility])[address] [place] [address] SOURCE OF OXYGEN Nasal Cannula (LPM) Normal [facility] Comment on above: Order Comment: 30 mi n after vent changes Performed By: #### L [id number] ####Associate Professor Of Art: DANIELLA PEREZ ([phone])[facility])[address] [place] [address] AMOUNT OF OXYGEN 2 Normal [facility] Comment on above: Performed By: #### L AB76 ####Associate Professor Of Art: DANIELLA PEREZ ([phone])[facility])[address] [place] [address] Base excess Calc (Bld) [Moles/Vol] -3.0000 mmol/L Normal -3.0-3.0 [facility] Comment on above: Performed By: #### L AB76 ####Associate Professor Of Art: DANIELLA PEREZ ([phone])[facility] ([facility])[address] [place] [address] [place] CO2 [Moles/Vol] 22.9 mmol/L Low 23.0-27.0 [facility] Comment on above: Performed By: #### L AB76 ####Associate Professor Of Art: DANIELLA PEREZ ([phone])[facility] [place] [address] HCO3 (Bld) [Moles/Vol] 21.7 mmol/L Normal 21.0-25.0 [facility] Comment on above: Performed By: #### L AB76 ####Associate Professor Of Art: DANIELLA PEREZ ([id number])[facility])[address] [place] [address] Hemoglobin (Bld) [Mass/Vol] 7.3 g/dL Normal Screen only [facility] Comment on above: Performed By: #### L AB76 ####Associate Professor Of Art: DANIELLA PEREZ ([id number])[facility] [place] [address] OXYGEN SATURATION (%) IN ARTERIAL BLOOD 97.1 % Normal 95.0-100.0 [facility] Comment on above: Performed By: #### L AB76 ####Associate Professor Of Art: DANIELLA PEREZ ([phone])[facility] [place] [address] PCO2 ARTERIAL 37.3 mm Hg Normal >35.0-<45.0 [facility] Comment on above: Performed By: #### L AB76 ####Associate Professor Of Art: DANIELLA PEREZ ([phone])[facility])[address] [place] [address] PH ARTERIAL 7.383 Normal 7.350-7.450 [facility] Comment on above: Performed By: #### L AB76 ####Associate Professor Of Art: DANIELLA PEREZ ([id number])[facility] [place] [address] PO2 ARTERIAL 117.0 mm Hg High 80.0-100.0 [facility] Comment on above: Performed By: #### L AB76 ####Associate Professor Of Art: DANIELLA PEREZ ([phone])[facility])[address] [place] [address] SOURCE OF OXYGEN Nasal Cannula (LPM) Normal [facility] Comment on above: Performed By: #### L AB76 ####Associate Professor Of Art: DANIELLA PEREZ ([phone])[facility])[address] [place] [address] AMOUNT OF OXYGEN 50 Normal [facility] Comment on above: Performed By: #### L AB76 ####Associate Professor Of Art: DANIELLA PEREZ ([phone])[facility])[address] [place] [address] Base excess Calc (Bld) [Moles/Vol] -6.1000 mmol/L Low -3.0-3.0 [facility] Comment on above: Performed By: #### L AB76 ####Associate Professor Of Art: DANIELLA PEREZ ([phone])[facility])[address] [place] [address] CO2 [Moles/Vol] 20.8 mmol/L Low 23.0-27.0 [facility] Comment on above: Performed By: #### L AB76 ####Associate Professor Of Art: DANIELLA PEREZ ([phone])[facility])[address] [place] [address] HCO3 (Bld) [Moles/Vol] 19.6 mmol/L Low 21.0-25.0 [facility] Comment on above: Performed By: #### L AB76 ####Associate Professor Of Art: DANIELLA PEREZ ([phone])[facility])[address] [place] [address] Hemoglobin (Bld) [Mass/Vol] 8.5 g/dL Normal Screen only [facility] Comment on above: Performed By: #### L AB76 ####Associate Professor Of Art: DANIELLA [id number])[facility])[address] [place] [address] OXYGEN SATURATION (%) IN ARTERIAL BLOOD 98.5 % Normal 95.0-100.0 [facility] Comment on above: Performed By: #### L AB76 ####Associate Professor Of Art: DANIELLA PEREZ ([phone])[facility])[address] [place] [address] PCO2 ARTERIAL 39.5 mm Hg Normal >35.0-<45.0 [facility] Comment on above: Performed By: #### L AB76 ####Associate Professor Of Art: DANIELLA PEREZ ([id number])[facility])[address] [place] [address] PH ARTERIAL 7.313 Low 7.350-7.450 [facility] Comment on above: Performed By: #### L AB76 ####Associate Professor Of Art: DANIELLA PEREZ ([phone])[facility])[address] [place] [address] PO2 ARTERIAL 177.8 mm Hg High 80.0-100.0 [facility] Comment on above: Performed By: #### L AB76 ####Associate Professor Of Art: DANIELLA PEREZ ([phone])[facility])[address] [place] [address] SOURCE OF OXYGEN Ventilator Normal [facility] Comment on above: Performed By: #### L AB76 ####Associate Professor Of Art: DANIELLA PEREZ ([phone])[facility])[address] [place] [address] AMOUNT OF OXYGEN 100 Normal [facility] Comment on above: Performed By: #### L AB76 ####Associate Professor Of Art: DANIELLA PEREZ ([phone])[facility])[address] [place] [address] Base excess Calc (Bld) [Moles/Vol] -2.2000 mmol/L Normal -3.0-3.0 [facility] Comment on above: Performed By: #### L AB76 ####Associate Professor Of Art: DANIELLA PEREZ ([phone])[facility] ([facility])[address] [place] [address] [place] CO2 [Moles/Vol] 24.6 mmol/L Normal 23.0-27.0 [facility] Comment on above: Performed By: #### L AB76 ####Associate Professor Of Art: DANIELLA PEREZ ([phone])[facility] ([facility])[address] [place] [address] HCO3 (Bld) [Moles/Vol] 23.3 mmol/L Normal 21.0-25.0 [facility] Comment on above: Performed By: #### L AB76 ####Associate Professor Of Art: DANIELLA PEREZ ([id number])[facility] [place] [address] Hemoglobin (Bld) [Mass/Vol] 10.2 g/dL Normal Screen only [facility] Comment on above: Performed By: #### L AB76 ####Associate Professor Of Art: DANIELLA PEREZ ([id number])[facility] [place] [address] OXYGEN SATURATION (%) IN ARTERIAL BLOOD 98.8 % Normal 95.0-100.0 [facility] Comment on above: Performed By: #### L AB76 ####Associate Professor Of Art: DANIELLA PEREZ ([phone])[facility] [place] [address] PCO2 ARTERIAL 43.0 mm Hg Normal >35.0-<45.0 [facility] Comment on above: Performed By: #### L AB76 ####Associate Professor Of Art: DANIELLA PEREZ ([phone])[facility] [place] [address] PH ARTERIAL 7.352 Normal 7.350-7.450 [facility] Comment on above: Performed By: #### L AB76 ####Associate Professor Of Art: DANIELLA PEREZ ([id number])[facility] [place] [address] PO2 ARTERIAL 387.1 mm Hg High 80.0-100.0 [facility] Comment on above: Performed By: #### L AB76 ####Associate Professor Of Art: DANIELLA PEREZ ([phone])[facility] ([facility])[address] [place] [address] SOURCE OF OXYGEN Ventilator Normal [facility] Comment on above: Performed By: #### L AB76 ####Associate Professor Of Art: DANIELLA PEREZ ([phone])[facility] ([facility])[address] [place] [address] Basic metabolic 1997 panelOr dered By: Ann Lopez on 05-10-2024 Anion gap [Moles/Vol] 9 mmol/L 3 - 13 mmol/L [facility] Calcium [Mass/Vol] 8.2 mg/dL Low 8.8 - 10. 0 mg/dL [facility] Chloride [Moles/Vol] 115 mmol/L High 98 - 10 7 mmol/L [facility] CO2 [Moles/Vol] 19 mmol/L Low 23 - 31 mmol/L [facility] Creatinine [Mass/Vol] 0.84 mg/dL 0.72 - 1.25 mg/dL [facility] GFR/1.73 sq M.predicted (S/P/Bld) [Vol rate/Area] 87.1 mL/min - PINF [facility] Glucose [Mass/Vol] 146 mg/dL High 82 - 115 mg/dL [facility] Interpretation and review of laboratory results Abnormal [facility] Potassium [Moles/Vol] 4.6 mmol/L 3.5 - 5.1 mmol/L [facility] Sodium [Moles/Vol] 143 mmol/L 136 - 145 mmol/L [facility] Urea nitrogen [Mass/Vol] 16 mg/dL 9 - 23 mg/dL [facility] Basic metabolic 1998 panelon 05-10-2024 Anion gap [Moles/Vol] 6 mmol/L 3 - 13 mmol/L [facility] Calcium [Mass/Vol] 9.8 mg/dL 8.8 - 10. 0 mg/dL [facility] Chloride [Moles/Vol] 111 mmol/L High 98 - 10 7 mmol/L [facility] CO2 [Moles/Vol] 22 mmol/L Low 23 - 31 mmol/L [facility] Creatinine [Mass/Vol] 0.84 mg/dL 0.72 - 1.25 mg/dL [facility] GFR/1.73 sq M.predicted (S/P/Bld) [Vol rate/Area] 87.1 mL/min - PINF [facility] Glucose [Mass/Vol] 144 mg/dL High 82 - 115 mg/dL [facility] Potassium [Moles/Vol] 3.6 mmol/L 3.5 - 5.1 mmol/L [facility] Sodium [Moles/Vol] 139 mmol/L 136 - 145 mmol/L [facility] Urea nitrogen [Mass/Vol] 17 mg/dL 9 - 23 mg/dL [facility] CALCIUM, IONIZEDon 5 CALCIUM IONIZED 4.40 mg/dL Normal 4.30-5.20 [facility] Comment on above: Performed By: #### L AB54 ####Associate Professor Of Art: DANIELLA PEREZ ([phone])[facility])[address] [place] [address] PH, IONIZED CALCIUM 7.39 Normal 7.31-7.46 [facility] Comment on above: Performed By: #### L AB54 ####Associate Professor Of Art: DANIELLA PEREZ ([phone])[facility])[address] [place] [address] CALCIUM IONIZED 4.40 mg/dL Normal 4.30-5.20 [facility] Comment on above: Performed By: #### L AB54 ####Associate Professor Of Art: DANIELLA PEREZ ([phone])[facility])[address] [place] [address] PH, IONIZED CALCIUM 7.33 Normal 7.31-7.46 [facility] Comment on above: Performed By: #### L AB54 ####Associate Professor Of Art: DANIELLA PEREZ ([phone])[facility])[address] [place] [address] CALCIUM IONIZED 5.40 mg/dL High 4.30-5.20 [facility] Comment on above: Performed By: #### L AB54 #### Associate Professor Of Art: DANIELLA PEREZ ([phone]) [facility]) [address] [place] [address] PH, IONIZED CALCIUM 7.37 Normal 7.31-7.46 [facility] Comment on above: Performed By: #### L AB54 #### Associate Professor Of Art: DANIELLA PEREZ ([phone]) [facility]) [address] [place] [address] CBC (HEMOGRAM)on 05-10-2024 Erythrocyte distribution width (RBC) [Ratio] 14.3 % Normal 11.5-15.0 [facility] Comment on above: Performed By: #### L [id number] ####Associate Professor Of Art: DANIELLA PEREZ ([phone])[facility])[address] [place] [address] Hematocrit (Bld) [Volume fraction] 26.0 % Low 40.0-52.0 [facility] Comment on above: Performed By: #### L [id number] ####Associate Professor Of Art: DANIELLA PEREZ ([phone])[facility])[address] [place] [address] Hemoglobin (Bld) [Mass/Vol] 8.6 g/dL Low 13.0-18.0 [facility] Comment on above: Performed By: #### L AB294 ####Associate Professor Of Art: DANIELLA PEREZ ([phone])[facility])[address] [place] [address] MCH (RBC) [Entitic mass] 27.8 pg Normal 26.0-34.0 [facility] Comment on above: Performed By: #### L AB294 ####Associate Professor Of Art: DANIELLA PEREZ ([id number])[facility])[address] [place] [address] MCHC 33.1 % Normal 30.5-36.0 [facility] Comment on above: Performed By: #### L [id number] ####Associate Professor Of Art: DANIELLA PEREZ ([phone])[facility])[address] [place] [address] MCV (RBC) [Entitic vol] 84.1 fL Normal 77.0-99.0 [facility] Comment on above: Performed By: #### L [id number] ####Associate Professor Of Art: DANIELLA PEREZ ([phone])[facility])[address] [place] [address] Platelet mean volume (Bld) [Entitic vol] 9.6 fL Normal 9.0-12.7 [facility] Comment on above: Performed By: #### L [id number] ####Associate Professor Of Art: DANIELLA PEREZ ([phone])[facility])[address] [place] [address] Platelets (Bld) [#/Vol] 157 10*3/uL Normal 140-440 [facility] Comment on above: Performed By: #### L AB294 ####Associate Professor Of Art: DANIELLA PEREZ ([id number])[facility])[address] [place] [address] RBC (Bld) [#/Vol] 3.09 10*6/uL Low 4.40-5.90 [facility] Comment on above: Performed By: #### L AB294 ####Associate Professor Of Art: DANIELLA PEREZ ([phone])[facility])[address] [place] [address] WBC (Bld) [#/Vol] 15.4 10*3/uL High 3.6-10.7 [facility] Comment on above: Performed By: #### L AB294 ####Associate Professor Of Art: DANIELLA PEREZ ([phone])[facility])[address] [place] [address] Erythrocyte distribution width (RBC) [Ratio] 14.0 % Normal 11.5-15.0 [facility] Comment on above: Performed By: #### L AB294 ####Associate Professor Of Art: DANIELLA PEREZ ([phone])[facility])[address] [place] [address] Hematocrit (Bld) [Volume fraction] 24.9 % Low 40.0-52.0 [facility] Comment on above: Performed By: #### L AB294 ####Associate Professor Of Art: DANIELLA PEREZ ([phone])[facility])[address] [place] [address] Hemoglobin (Bld) [Mass/Vol] 7.9 g/dL Low 13.0-18.0 [facility] Comment on above: Performed By: #### L AB294 ####Associate Professor Of Art: DANIELLA PEREZ ([phone])[facility])[address] [place] [address] MCH (RBC) [Entitic mass] 27.4 pg Normal 26.0-34.0 [facility] Comment on above: Performed By: #### L AB294 ####Associate Professor Of Art: DANIELLA PEREZ ([phone])[facility])[address] [place] [address] MCHC 31.7 % Normal 30.5-36.0 [facility] Comment on above: Performed By: #### L AB294 ####Associate Professor Of Art: DANIELLA PEREZ ([phone])[facility])[address] [place] [address] MCV (RBC) [Entitic vol] 86.5 fL Normal 77.0-99.0 [facility] Comment on above: Performed By: #### L [id number] ####Associate Professor Of Art: DANIELLA PEREZ ([phone])[facility])[address] [place] [address] Platelet mean volume (Bld) [Entitic vol] 9.3 fL Normal 9.0-12.7 [facility] Comment on above: Performed By: #### L AB294 ####Associate Professor Of Art: DANIELLA PEREZ ([phone])[facility])[address] [place] [address] Platelets (Bld) [#/Vol] 124 10*3/uL Low 140-440 [facility] Comment on above: Performed By: #### L AB294 ####Associate Professor Of Art: DANIELLA PEREZ ([id number])[facility])[address] [place] [address] RBC (Bld) [#/Vol] 2.88 10*6/uL Low 4.40-5.90 [facility] Comment on above: Performed By: #### L AB294 ####Associate Professor Of Art: DANIELLA PEREZ ([phone])[facility])[address] [place] [address] WBC (Bld) [#/Vol] 11.3 10*3/uL High 3.6-10.7 [facility] Comment on above: Performed By: #### L [id number] ####Associate Professor Of Art: DANIELLA PEREZ ([phone])[facility])[address] [place] [address] CBC W Auto Differential pane l (Bld)Ordered By: Radha Strickland on 05-10-2024 Erythrocyte distribution width (RBC) [Ratio] 14.3 % 11.5 - 15.0 % [facility] Hematocrit (Bld) [Volume fraction] 22.2 % Low 40.0 - 52.0 % [facility] Hemoglobin (Bld) [Mass/Vol] 7.3 g/dL Low 13.0 - 18.0 g/dL [facility] Interpretation and review of laboratory results Abnormal [facility] MCH (RBC) [Entitic mass] 28.2 pg 26. 0 - 34.0 pg [facility] MCHC (RBC) [Mass/Vol] 32.9 % 30.5 - 36.0 % [facility] MCV (RBC) [Entitic vol] 85.7 fL 77.0 - 99.0 fL [facility] [employer] Platelet mean volume (Bld) [Entitic vol] 9.6 fL 9.0 - 12.7 fL [facility] [employer] Platelets (Bld) [#/Vol] 110 10*3/uL Low 140 - 440 10*3/uL [facility] RBC (Bld) [#/Vol] 2.59 10*6/uL Low 4.40 - 5.9 0 10*6/uL [facility] WBC (Bld) [#/Vol] 8.8 10*3/uL 3.6 - 10.7 10*3/uL [facility] CBC WITH AUTO DIFFERENTIALon 05-10-2024 Erythrocyte distribution width (RBC) [Ratio] 14.3 % Normal 11.5-15.0 [facility] Comment on above: Performed By: #### L [id number], [id number] ####Associate Professor Of Art: DANIELLA PEREZ ([phone])[facility])[address] [place] [address] Hematocrit (Bld) [Volume fraction] 22.2 % Low 40.0-52.0 [facility] Comment on above: Performed By: #### L [id number], [id number] ####Associate Professor Of Art: DANIELLA PEREZ ([phone])[facility])[address] [place] [address] Hemoglobin (Bld) [Mass/Vol] 7.3 g/dL Low 13.0-18.0 [facility] Comment on above: Performed By: #### [place] [id number], [id number] ####Associate Professor Of Art: DANIELLA PEREZ ([phone])[address] MCH (RBC) [Entitic mass] 28.2 pg Normal 26.0-34.0 [facility] Comment on above: Performed By: #### L [id number], [id number] ####Associate Professor Of Art: DANIELLA PEREZ ([id number])[facility])[address] [place] [address] MCHC 32.9 % Normal 30.5-36.0 [facility] Comment on above: Performed By: #### L [id number], [id number] ####Associate Professor Of Art: DANIELLA PEREZ ([id number])[address] MCV (RBC) [Entitic vol] 85.7 fL Normal 77.0-99.[address] [facility] Comment on above: Performed By: #### L [id number], [id number] ####Associate Professor Of Art: DANIELLA PEREZ ([phone])[facility])[address] [place] [address] Platelet mean volume (Bld) [Entitic vol] 9.6 fL Normal 9.0-12.7 [facility] Comment on above: Performed By: #### L [id number], [id number] ####Associate Professor Of Art: DANIELLA PEREZ ([id number])[facility])[address] [place] [address] Platelets (Bld) [#/Vol] 110 10*3/uL Low 140-440 [facility] Comment on above: Performed By: #### L [id number], [id number] ####Associate Professor Of Art: DANIELLA PEREZ ([id number])[facility])[address] [place] [address] RBC (Bld) [#/Vol] 2.59 10*6/uL Low 4.40-5.90 [facility] Comment on above: Performed By: #### L [id number], [id number] ####Associate Professor Of Art: DANIELLA PEREZ ([id number])[facility])[address] [place] [address] WBC (Bld) [#/Vol] 8.8 10*3/uL Normal 3.6-10.7 [facility] Comment on above: Performed By: #### L [id number], [id number] ####Associate Professor Of Art: DANIELLA PEREZ ([id number])[facility])[address] [place] [address] CBC panel Auto (Bld)on 05-10 Erythrocyte distribution width (RBC) [Ratio] 14.3 % 11.5 - 15.0 % [facility] Hematocrit (Bld) [Volume fraction] 26 % Low 40.0 - 52.0 % [facility] Hemoglobin (Bld) [Mass/Vol] 8.6 g/dL Low 13.0 - 18.0 g/dL [facility] Interpretation and review of laboratory results Abnormal [facility] MCH (RBC) [Entitic mass] 27.8 pg 26. 0 - 34.0 pg [facility] MCHC (RBC) [Mass/Vol] 33.1 % 30.5 - 36.0 % [facility] MCV (RBC) [Entitic vol] 84.1 fL 77.0 - 99.0 fL [facility] Platelet mean volume (Bld) [Entitic vol] 9.6 fL 9.0 - 12.7 fL [facility] Platelets (Bld) [#/Vol] 157 10*3/uL 140 - 440 10*3/uL [facility] RBC (Bld) [#/Vol] 3.09 10*6/uL Low 4.40 - 5.9 0 10*6/uL [facility] WBC (Bld) [#/Vol] 15.4 10*3/uL High 3.6 - 10.7 10*3/uL [facility] Erythrocyte distribution width (RBC) [Ratio] 14 % 11.5 - 15.0 % [facility] Hematocrit (Bld) [Volume fraction] 24.9 % Low 40.0 - 52.0 % [facility] Hemoglobin (Bld) [Mass/Vol] 7.9 g/dL Low 13.0 - 18.0 g/dL [facility] Interpretation and review of laboratory results Abnormal [facility] MCH (RBC) [Entitic mass] 27.4 pg 26. 0 - 34.0 pg [facility] MCHC (RBC) [Mass/Vol] 31.7 % 30.5 - 36.0 % [facility] MCV (RBC) [Entitic vol] 86.5 fL 77.0 - 99.0 fL [facility] Platelet mean volume (Bld) [Entitic vol] 9.3 fL 9.0 - 12.7 fL [facility] Platelets (Bld) [#/Vol] 124 10*3/uL Low 140 - 440 10*3/uL [facility] RBC (Bld) [#/Vol] 2.88 10*6/uL Low 4.40 - 5.9 0 10*6/uL [facility] WBC (Bld) [#/Vol] 11.3 10*3/uL High 3.6 - 10.7 10*3/uL [facility] COMPREHENSIVE METABOLIC PANE Venkata 05-10-2024 Albumin [Mass/Vol] 3.2 g/dL Low 3.4-4.8 [facility] Comment on above: Performed By: #### L AB113, LAB17, [id number] ####Associate Professor Of Art: DANIELLA PEREZ ([phone])[facility])[address] [place] [address] ALP [Catalytic activity/Vol] 45 U/L Normal 40-150 [facility] Comment on above: Performed By: #### Verito ABAnnamaria, LAB17, [id number] ####Associate Professor Of Art: DANIELLA PEREZ ([phone])[facility] ([facility])[address] [place] [address] ALT [Catalytic activity/Vol] U/L Normal <40 [facility] Comment on above: Performed By: #### Verito BALBUENA, LAB17, [id number] ####Associate Professor Of Art: DANIELLA PEREZ ([phone])[facility] ([facility])[address] [place] [address] Anion gap [Moles/Vol] 8 mmol/L Normal 3-13 [facility] Comment on above: Performed By: #### Verito ABAnnamaria, LAB17, [id number] ####Associate Professor Of Art: DANIELLA PEREZ ([phone])[facility] ([facility])[address] [place] [address] AST [Catalytic activity/Vol] 27 U/L Normal <34 [facility] Comment on above: Performed By: #### Verito ABAnnamaria, LAB17, [id number] ####Associate Professor Of Art: DANIELLA PEREZ ([phone])[facility] ([facility])[address] [place] [address] Bilirubin [Mass/Vol] 0.6 mg/dL Normal <1.2 [facility] Comment on above: Performed By: #### Verito ABAnnamaria, LAB17, [id number] ####Associate Professor Of Art: DANIELLA PEREZ ([phone])[facility])[address] [place] [address] Calcium [Mass/Vol] 8.4 mg/dL Low 8.8-10.0 [facility] Comment on above: Performed By: #### Verito ABAnnamaria, LAB17, [id number] ####Associate Professor Of Art: DANIELLA PEREZ ([phone])[facility] [place] [address] [place] Chloride [Moles/Vol] 112 mmol/L High 98-107 [facility] Comment on above: Performed By: #### Verito ABAnnamaria, LAB17, [id number] ####Associate Professor Of Art: DANIELLA PEREZ ([phone])[facility] ([facility])[address] [place] [address] [place] CO2 [Moles/Vol] 21 mmol/L Low 23-31 [facility] Comment on above: Performed By: #### Verito BALBUENA, LAB17, [id number] ####Associate Professor Of Art: DANIELLA PEREZ ([phone])[facility] ([facility])[address] [place] [address] Creatinine [Mass/Vol] 0.89 mg/dL Normal 0.72-1.25 [facility] Comment on above: Performed By: #### Verito BALBUENA, LAB17, [id number] ####Associate Professor Of Art: DANIELLA PEREZ ([phone])[facility] ([facility])[address] [place] [address] [place] GLOMERULAR FILTRATION RATE ML/MIN/1.73 SQ M.PREDICTED 85.6 mL/min/1.73m*2 Normal >60.0 [facility] Comment on above: Result Comment: Calc ulation based on the Chronic Kidney Disease Epidemiology Collaboration (CKD-EPI) equation refit without adjustment for race Performed By: #### Verito BALBUENA, LAB17, [id number] ####Associate Professor Of Art: DANIELLA PEREZ ([phone])[facility] ([facility])[address] [place] [address] [place] Glucose [Mass/Vol] 205 mg/dL High 82-115 [facility] Comment on above: Performed By: #### Verito BALBUENA, LAB17, [id number] ####Associate Professor Of Art: DANIELLA PEREZ ([phone])[facility] ([facility])[address] [place] [address] [place] Potassium [Moles/Vol] 3.1 mmol/L Low 3.5-5.1 [facility] Comment on above: Result Comment: [facility] potassium values may be up to 0.5 mmol/L lower than serum values. Performed By: #### L AB113, LAB17, [id number] ####Associate Professor Of Art: DANIELLA PEREZ ([phone])[facility] ([facility])[address] [place] [address] Protein [Mass/Vol] 4.5 g/dL Low 6.4-8.3 [facility] Comment on above: Performed By: #### L AB113, LAB17, [id number] ####Associate Professor Of Art: DANIELLA PEREZ ([phone])[facility] ([facility])[address] [place] [address] Sodium [Moles/Vol] 141 mmol/L Normal 136-145 [facility] Comment on above: Performed By: #### L AB113, LAB17, [id number] ####Associate Professor Of Art: DANIELLA PEREZ ([phone])[facility] ([facility])[address] [place] [address] Urea nitrogen [Mass/Vol] 17 mg/dL Normal 9-23 [facility] Comment on above: Performed By: #### L AB113, LAB17, [id number] ####Associate Professor Of Art: DANIELLA PEREZ ([phone])[facility])[address] [place] [address] Calcium.ionized [Moles/Vol]o n 05-10-2024 Calcium.ionized (Bld) [Moles/Vol] 4.4 mg/dL 4.30 - 5.20 mg/dL [facility] Interpretation and review of laboratory results Normal [facility] PH, IONIZED CALCIUM 7.39 7.31 - 7.46 [facility] Calcium.ionized (Bld) [Moles/Vol] 4.4 mg/dL 4.30 - 5.20 mg/dL [facility] Interpretation and review of laboratory results Normal [facility] PH, IONIZED CALCIUM 7.33 7.31 - 7.46 [facility] Calcium.ionized [Moles/Vol]O rdered By: Brandt Gilmore on 05-10-2024 Calcium.ionized (Bld) [Moles/Vol] 5.4 mg/dL High 4.30 - 5.20 mg/dL [facility] Interpretation and review of laboratory results Abnormal [facility] PH, IONIZED CALCIUM 7.37 7.31 - 7.46 [facility] Comprehensive metabolic 1998 panelon 05-10-2024 Albumin [Mass/Vol] 3.2 g/dL Low 3.4 - 4.8 g/dL [facility] ALP [Catalytic activity/Vol] 45 U/L 40 - 150 U/L [facility] ALT [Catalytic activity/Vol] U/L NINF - 40 U/L [facility] Anion gap [Moles/Vol] 8 mmol/L 3 - 13 mmol/L [facility] AST [Catalytic activity/Vol] 27 U/L NINF - 34 U/L [facility] Bilirubin [Mass/Vol] 0.6 mg/dL NINF - 1.2 mg/dL [facility] Calcium [Mass/Vol] 8.4 mg/dL Low 8.8 - 10. 0 mg/dL [facility] Chloride [Moles/Vol] 112 mmol/L High 98 - 10 7 mmol/L [facility] CO2 [Moles/Vol] 21 mmol/L Low 23 - 31 mmol/L [facility] Creatinine [Mass/Vol] 0.89 mg/dL 0.72 - 1.25 mg/dL [facility] GFR/1.73 sq M.predicted (S/P/Bld) [Vol rate/Area] 85.6 mL/min - PINF [facility] Glucose [Mass/Vol] 205 mg/dL High 82 - 115 mg/dL [facility] Interpretation and review of laboratory results Abnormal [facility] Potassium [Moles/Vol] 3.1 mmol/L Low 3.5 - 5.1 mmol/L [facility] Protein [Mass/Vol] 4.5 g/dL Low 6.4 - 8.3 g/dL [facility] Sodium [Moles/Vol] 141 mmol/L 136 - 145 mmol/L [facility] Urea nitrogen [Mass/Vol] 17 mg/dL 9 - 23 mg/dL [facility] Consulton 05-10-2024 Consult - Attestation signed by Lilian Cisse MD at 05/10/2024 1:48 PM I have personally performed a face to face diagnostic evaluation on this patient. In addition, I have reviewed the resident's/RESTORATIVE CARE TECHNICIAN/VERTICAL BORER's care plan and agree with those findings [...] imaging are reviewed as detailed in the resident's/RESTORATIVE CARE TECHNICIAN/VERTICAL BORER's note Department of Internal Medicine Division of Endocrinology, Diabetes, & Metabolism Endocrinology Note Patient Name: Farhnaa Thrasher : 1940 AGE: 84 y.o. Room/Bed: OR/NONE Admission Date: 05/10/2024 Visit Date: 05/10/2024 Reason for Endocrine Consult: post op heart Provider/Team Requesting Consult: CTS PCP: KELSEY MOON MD Outpt Roofer Applicator: No ASSESSMENT: DM2 with hyperglycemia and fpc insulin Stress hyperglycemia CABGX3 HLD/CAD Obesity Body [...] (GLUCOPHAGE) 1,0 (more content not included)... Normal [facility] Consult - Attestation signed by Luz Hough DO at 05/10/2024 1:52 PM I have personally performed a [id number] diagnostic evaluation on this patient on date of service 05/10/24. History, labs, imaging studies, and electronic medical record have been reviewed by me. This note documented by the []lodging house keeper [x]JULIO CESAR reflects my history, exam, and [...] set to back up -monitor hemodynamics via [place] bár[place]. Currently on low dose epi gtt [...] minutes so far today, excluding procedures. [facility]: Critical Care Consultation Note Date: 05/10/24 PATIENT NAME: Farhana Thrasher : 1940 (84 y.o.) Reason for Consult: Critical Care & Vent Management HPI: Nimisha Thrasher is a 84 y.o. male referred [...] Calcium Carb-Cholecalciferol (more content not included)... Normal [facility] FIBRINOGENon 05-10-2024 FIBRINOGEN 225 mg/dL Normal 200-400 [facility] Comment on above: Performed By: #### L [id number], [id number] ####Associate Professor Of Art: DANIELLA PEREZ ([phone])[facility] ([facility] Fibrinogen Coag (PPP) [Mass/ Vol]on 05-10-2024 Interpretation and review of laboratory results Normal [facility] Laboratory - Chemistry and C hemistry - challengeon 05-10-2024 Glucose [Mass/Vol] 160 mg/dL High 70 - 100 mg/dL [facility] Glucose [Mass/Vol] 166 mg/dL High 70 - 100 mg/dL [facility] Glucose [Mass/Vol] 166 mg/dL High 70 - 100 mg/dL [facility] Glucose [Mass/Vol] 160 mg/dL High 70 - 100 mg/dL [facility] Glucose [Mass/Vol] 147 mg/dL High 70 - 100 mg/dL [facility] Glucose [Mass/Vol] 147 mg/dL High 70 - 100 mg/dL [facility] Base excess Calc (Bld) [Moles/Vol] -3 mmol/L -3.0 - 3.0 mmol/L [facility] CO2 (Bld) [Partial pressure] 37.3 mm[Hg] - PINF [facility] CO2 [Moles/Vol] 22.9 mmol/L Low 23.0 - 27.0 mmol/L [facility] HCO3 (Bld) [Moles/Vol] 21.7 mmol/L 21.0 - 25.0 mmol/L [facility] Oxygen (Bld) [Partial pressure] 117 mm[Hg] High [facility] pH (Bld) 7.383 [pH] 7.350 - 7.450 [facility] Glucose [Mass/Vol] 165 mg/dL High 70 - 100 mg/dL [facility] Glucose [Mass/Vol] 180 mg/dL High 70 - 100 mg/dL [facility] Glucose [Mass/Vol] 172 mg/dL High 70 - 100 mg/dL [facility] Magnesium [Mass/Vol] 2.6 mg/dL 1.6 - 2 .6 mg/dL [facility] Base excess Calc (Bld) [Moles/Vol] -6.1000 mmol/L Low -3.0 - 3.0 mmol/L [facility] CO2 (Bld) [Partial pressure] 39.5 mm[Hg] - PINF [facility] CO2 [Moles/Vol] 20.8 mmol/L Low 23.0 - 27.0 mmol/L [facility] HCO3 (Bld) [Moles/Vol] 19.6 mmol/L Low 21.0 - 25.0 mmol/L [facility] Oxygen (Bld) [Partial pressure] 177.8 mm[Hg] High [facility] pH (Bld) 7.313 [pH] Low 7.350 - 7.450 [facility] Glucose [Mass/Vol] 172 mg/dL High 70 - 100 mg/dL [facility] Glucose [Mass/Vol] 153 mg/dL High 70 - 100 mg/dL [facility] Glucose [Mass/Vol] 135 mg/dL High 70 - 100 mg/dL [facility] Magnesium [Mass/Vol] 3.4 mg/dL High 1.6 - 2 .6 mg/dL [facility] Base excess Calc (Bld) [Moles/Vol] -2.2000 mmol/L -3.0 - 3.0 mmol/L [facility] CO2 (Bld) [Partial pressure] 43 mm[Hg] - PINF [facility] CO2 [Moles/Vol] 24.6 mmol/L 23.0 - 27.0 mmol/L [facility] HCO3 (Bld) [Moles/Vol] 23.3 mmol/L 21.0 - 25.0 mmol/L [facility] Oxygen (Bld) [Partial pressure] 387.1 mm[Hg] High [facility] pH (Bld) 7.352 [pH] 7.350 - 7.450 [facility] Glucose [Mass/Vol] 114 mg/dL High 70 - 100 mg/dL [facility] Laboratory - Chemistry and C hemistry - challengeOrdered By: Keisha Linton on 05-10-2024 Base excess Calc (Bld) [Moles/Vol] -2.5000 mmol/L -3.0 - 3.0 mmol/L [facility] CO2 (Bld) [Partial pressure] 36.3 mm[Hg] - PINF [facility] CO2 [Moles/Vol] 23.1 mmol/L 23.0 - 27.0 mmol/L [facility] HCO3 (Bld) [Moles/Vol] 22 mmol/L 21.0 - 25.0 mmol/L [facility] Oxygen (Bld) [Partial pressure] 123.3 mm[Hg] High [facility] pH (Bld) 7.4 [pH] 7.350 - 7.450 [facility] Laboratory - Coagulationon 0 05-10-2024 aPTT Coag (PPP) [Time] 27.6 s 20.0 - 30.5 s [facility] Fibrinogen Coag (PPP) [Mass/Vol] 225 mg/dL 200 - 400 mg/dL [facility] INR Coag (PPP) [Relative time] 1.3 {INR} High 0.9 - 1.1 [facility] PT Coag (Bld) [Time] 14.3 s High 9.0 - 1 2.0 s [facility] - Hematology and Cell countsOrdered By: Keisha Linton on 05-10-2024 Hemoglobin (Bld) [Mass/Vol] 8.9 g/dL Screen only [facility] - Hematology and Cell countson 05-10-2024 Band form neutrophils (Bld) [#/Vol] 0.1 10*3/uL High NINF - 0.0 10*3/uL [facility] Band form neutrophils/100 WBC (Bld) 1 % High NINF - 0 % [facility] Lymphocytes (Bld) [#/Vol] 0.7 10*3/uL Low 1.0 - 4.3 10*3/uL [facility] Lymphocytes/100 WBC (Bld) 8 % Low 15 - 45 % [facility] Monocytes (Bld) [#/Vol] 0.7 10*3/uL 0.0 - 0.9 10*3/uL [facility] Monocytes/100 WBC (Bld) 8 % 5 - 13 % [facility] Neutrophils (Bld) [#/Vol] 7.4 10*3/uL 1.8 - 7.5 10*3/uL [facility] Ovalocytes LM Ql (Bld) Slight Abnormal (none) [facility] Poikilocytosis LM Ql (Bld) Slight Abnormal (none) [facility] RBC morphology finding Nom (Bld) abnormal [facility] Segmented neutrophils/100 WBC (Bld) 83 % High 38 - 82 % [facility] Hemoglobin (Bld) [Mass/Vol] 7.3 g/dL Screen only [facility] Hemoglobin (Bld) [Mass/Vol] 8.5 g/dL Screen only [facility] Hemoglobin (Bld) [Mass/Vol] 10.2 g/dL Screen only [facility] MAGNESIUMon 05-10-2024 Magnesium [Mass/Vol] 2.6 mg/dL Normal 1.6-2.6 [facility] Comment on above: Result Comment: JEAN CARLOS Nuñez COMMENTS: Higher values can be expected in females during menses. Performed By: #### L AB113, LAB17, [id number] ####Associate Professor Of Art: DANIELLA PEREZ ([phone])[facility])[address] [place] [address] Magnesium [Mass/Vol] 3.4 mg/dL High 1.6-2.6 [facility] Comment on above: Result Comment: JEAN CARLOS Nuñez COMMENTS: Higher values can be expected in females during menses. Performed By: #### L AB113, [id number], LAB15 ####Associate Professor Of Art: DANIELLA PEREZ ([phone])[facility])[address] [place] [address] MANUAL DIFFERENTIAL (CELLAVI CAMILO)on 05-10-2024 BAND NEUTROPHILS TOTAL PER COUNTED LEUKOCYTES BY MANUAL COUNT 1 Normal [facility] Comment on above: Performed By: #### L [id number], [id number] ####Associate Professor Of Art: DANIELLA PEREZ ([phone])[facility])[address] [place] [address] BANDS (10*3/UL) IN BLOOD-CELLAVISION 0.1 10*3/uL High <=0.0 [facility] Comment on above: Performed By: #### L [id number], [id number] ####Associate Professor Of Art: DANIELLA PEREZ ([phone])[facility] [place] [address] [place] BASOPHILS TOTAL PER COUNTED LEUKOCYTES BY MANUAL COUNT [facility] Comment on above: Performed By: #### L [id number], [id number] ####Associate Professor Of Art: DANIELLA PEREZ ([phone])[facility] ([facility])[address] [place] [address] [place] BLASTS TOTAL PER COUNTED LEUKOCYTES BY MANUAL COUNT [facility] Comment on above: Performed By: #### L [id number], [id number] ####Associate Professor Of Art: DANIELLA PEREZ ([id number])[facility] ([facility])[address] [place] [address] EOSINOPHILS TOTAL PER COUNTED LEUKOCYTES BY MANUAL COUNT [facility] Comment on above: Performed By: #### L [id number], [id number] ####Associate Professor Of Art: DANIELLA PEREZ ([phone])[facility] ([facility])[address] [place] [address] [place] LYMPHOCYTES (10*3/UL) IN BLOOD-CELLAVISION 0.7 10*3/uL Low 1.0-4.3 [facility] Comment on above: Performed By: #### L [id number], [id number] ####Associate Professor Of Art: DANIELLA PEREZ ([phone])[facility] ([facility])[address] [place] [address] [place] LYMPHOCYTES TOTAL PER COUNTED LEUKOCYTES BY MANUAL COUNT 8 Normal [facility] Comment on above: Performed By: #### L [id number], [id number] ####Associate Professor Of Art: DANIELLA PEREZ ([id number])[facility] ([facility])[address] [place] [address] [place] LYMPHOCYTES/100 LEUKOCYTES IN BLOOD-CELLAVISION 8 % Low 15-45 [facility] Comment on above: Performed By: #### L [id number], [id number] ####Associate Professor Of Art: DANIELLA PEREZ ([phone])[facility] ([facility])[address] [place] [address] [place] METAMYELOCYTES TOTAL PER COUNTED LEUKOCYTES BY MANUAL COUNT Normal [facility] Comment on above: Performed By: #### L [id number], [id number] ####Associate Professor Of Art: DANIELLA PEREZ ([phone])[facility] ([facility])[address] [place] [address] [place] MONOCYTES (10*3/UL) IN BLOOD-CELLAVISION 0.7 10*3/uL Normal 0.0-0.9 [facility] Comment on above: Performed By: #### L [id number], [id number] ####Associate Professor Of Art: DANIELLA PEREZ ([phone])[facility] ([facility])[address] [place] [address] [place] MONOCYTES TOTAL PER COUNTED LEUKOCYTES BY MANUAL COUNT 8 Normal [facility] Comment on above: Performed By: #### L [id number], [id number] ####Associate Professor Of Art: DANIELLA PEREZ ([phone])[facility] ([facility])[address] [place] [address] [place] MONOCYTES/100 LEUKOCYTES IN BLOOD-TALIB 8 % Normal 5-13 [facility] Comment on above: Performed By: #### L [id number], [id number] ####Associate Professor Of Art: DANIELLA PEREZ ([phone])[facility] ([facility])[address] [place] [address] [place] MYELOCYTES COUNTED BY MANUAL COUNT [facility] Comment on above: Performed By: #### L [id number], [id number] ####Associate Professor Of Art: DANIELLA PEREZ ([phone])[facility] ([facility])[address] [place] [address] [place] NEUTROPHILS BAND FORM/100 LEUKOCYTES IN BLOOD-CELLAVISI 1 % High <=0 [facility] Comment on above: Performed By: #### L [id number], [id number] ####Associate Professor Of Art: DANIELLA PEREZ ([phone])[facility] ([facility])[address] [place] [address] [place] NEUTROPHILS TOTAL PER COUNTED LEUKOCYTES BY MANUAL COUNT 81 Normal [facility] Comment on above: Performed By: #### L [id number], [id number] ####Associate Professor Of Art: DANIELLA PEREZ ([id number])[facility] ([facility])[address] [place] [address] [place] OVALOCYTES PRESENCE IN BLOOD BY LIGHT MICROSCOPY Slight Abnormal (none) [facility] Comment on above: Performed By: #### L [id number], [id number] ####Associate Professor Of Art: DANIELLA PEREZ ([phone])[facility] [place] [address] [place] POIKILOCYTOSIS (PRESENCE) IN BLOOD BY LIGHT MICROSCOPY Slight Abnormal (none) [facility] Comment on above: Performed By: #### L [id number], [id number] ####Associate Professor Of Art: DANIELLA PEREZ ([id number])[facility] [place] [address] [place] PROMYELOCYTES TOTAL PER COUNTED LEUKOCYTES BY MANUAL COUNT Normal [facility] Comment on above: Performed By: #### L [id number], [id number] ####Associate Professor Of Art: DANIELLA PEREZ ([id number])[facility] [place] [address] [place] RBC MORPHOLOGY IN BLOOD abnormal Normal [facility] Comment on above: Performed By: #### L [id number], [id number] ####Associate Professor Of Art: DANIELLA PEREZ ([phone])[facility] [place] [address] [place] SEGMENTED NEUTROPHILS (10*3/UL) IN BLOOD-CELLAVISION 7.4 10*3/uL Normal 1.8-7.5 [facility] Comment on above: Performed By: #### L [id number], [id number] ####Associate Professor Of Art: DANIELLA PEREZ ([phone])[facility] [place] [address] [place] SEGMENTED NEUTROPHILS/100 LEUKOCYTES-CE 83 % High 38-82 [facility] Comment on above: Performed By: #### L [id number], [id number] ####Associate Professor Of Art: DANIELLA PEREZ ([id number])[facility] ([facility])[address] [place] [address] UNCLASSIFIED CELLS TOTAL PER COUNTED LEUKOCYTES BY MANUAL COUNT Normal [facility] Comment on above: Performed By: #### L [id number], [id number] ####Associate Professor Of Art: DANIELLA PEREZ ([phone])[facility] [facility] [place] [address] VARIANT LYMPHOCYTES TOTAL PER COUNTED LEUKOCYTES BY MANUAL COUNT Normal [facility] Comment on above: Performed By: #### L [id number], [id number] ####Associate Professor Of Art: DANIELLA PEREZ ([phone])[facility] [place] [address] Magnesium [Mass/Vol]on 05-10 [facility] No Panel Informationon 05-10 Interpretation and review of laboratory results Abnormal [facility] Interpretation and review of laboratory results Abnormal [facility] Blood Expiration Date [id number] S [facility] Crossmatch interpretation COMP [facility] Dispense Status Transfused [facility] lt Product Blood Type 5100 [facility] PRODUCT CODE [id number] [facility] Unit ABO O [facility] Number [id number] [facility] RH Positive [facility] Unit Volume 300 mL [facility] Interpretation and review of laboratory results Abnormal [facility] Bands Manual 1 [facility] Interpretation and review of laboratory results Abnormal [facility] Lymphocytes Manual 8 [facility] Monocytes Manual 8 [facility] Neutrophils Manual 81 [facility] Interpretation and review of laboratory results Abnormal [facility] Interpretation and review of laboratory results Abnormal [facility] Interpretation and review of laboratory results Abnormal [facility] Amount Of Oxygen 2 [place] [facility] Interpretation and review of laboratory results Abnormal [facility] Source Of Oxygen Nasal Cannula (LPM) [facility] Interpretation and review of laboratory results Abnormal [facility] Interpretation and review of laboratory results Abnormal [facility] Interpretation and review of laboratory results Abnormal [facility] Interpretation and review of laboratory results Normal [facility] Amount Of Oxygen 50 [facility] Interpretation and review of laboratory results Abnormal [facility] Source Of Oxygen Ventilator [facility] Interpretation and review of laboratory results Abnormal [facility] Interpretation and review of laboratory results Abnormal [facility] Interpretation and review of laboratory results Abnormal [facility] Interpretation and review of laboratory results Abnormal [facility] Interpretation and review of laboratory results Abnormal [facility] Amount Of Oxygen 100 [place] Interpretation and review of laboratory results Abnormal [facility] Source Of Oxygen Ventilator [facility] alth [facility] Interpretation and review of laboratory results Abnormal [facility] No Panel InformationOrdered By: Keisha Linton on 05-10-2024 Amount Of Oxygen 2lt [facility] Interpretation and review of laboratory results Abnormal [facility] Source Of Oxygen Nasal Cannula (LPM) [facility] Op Noteon 05-10-2024 Op Note Cardiothoracic Surgery [...] Intraoperative transesophageal echocardiography Surgeon: Daysi Velasco MD [employer] Operator(s): [] Yesenia Taylor [] Gladis Melgar [x] [...] protected. An appropriate timeout was conducted. [facility] [place] [facility] Card[facility] Bypass: A LEFT [...] right a (more content not included)... Normal [facility] PHOSPHORUSon 05-10-2024 Phosphate [Mass/Vol] 4.0 mg/dL Normal 2.3-4.7 [facility] Comment on above: Performed By: #### L [id number], [id number], [id number] ####Associate Professor Of Art: DANIELLA PEREZ ([id number])[address] Phosphate [Mass/Vol] 3.4 mg/dL Normal 2.3-4.7 [facility] Comment on above: Performed By: #### L AB113, [id number], LAB15 ####Associate Professor Of Art: DANIELLA PEREZ ([phone])[address] PROTIME AND APTTon aPTT Coag (Bld) [Time] 27.6 s Normal 20.0-30.5 [facility] Comment on above: Performed By: #### L [id number], [id number] ####Associate Professor Of Art: DANIELLA PEREZ ([id number])[address] INR Coag (PPP) [Relative time] 1.3 {INR} High 0.9-1.1 [facility] Comment on above: Result Comment: Poli mmended [...] prevent Myocardial Infarction Performed By: #### L [id number], [id number] ####Associate Professor Of Art: DANIELLA PEREZ ([id number])[facility] [place] [address] PT Coag (PPP) [Time] 14.3 s High 9.0-12.0 [facility] Comment on above: Performed By: #### L [id number], [id number] ####Associate Professor Of Art: DANIELLA PEREZ ([id number])[facility] ([employer])[address] [place] [address] Phosphate [Moles/Vol]on 04-22 Phosphate [Mass/Vol] 4 mg/dL 2.3 - 4 .7 mg/dL [facility] Interpretation and review of laboratory results Normal [facility] Phosphate [Mass/Vol] 3.4 mg/dL 2.3 - 4 .7 mg/dL [facility] Progress Noteon 05-10-2024 Progress Note Transfusion Medicine Resident Review Note Product type: 1 unit pRBC, O+ Reason for Review: Hemoglobin >7.0 g/dL Indications for Transfusion: 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 Please contact the blood bank if there are any issues receiving the product for transfusion at *[phone] ([facility]) or *[phone] ([facility]) Comment: Close clinical monitoring is indicated to avoid transfusion associated circulatory overload (TACO) during transfusion of patients with impaired cardiac function. Strategies such as slower infusion rates (1 ml/kg body weight/hour), decreasing transfusion volume, and prophylactic use of diuretics for volume reduction may reduce the risk in clinically appropriate patients. Normal [facility] Progress Note Extubated to 5 L NC Normal [facility] US Heart Transesophagealon 0 05-10-2024 CV CPACS HEMO US Heart TransesophagealOrde red By: Jo Saenz on 05-10-2024 [facility] Work Phone: XR CHEST 1 VIEWon 05-10-2024 XR CHEST 1 VIEW Patient Name: FARHANA THRASHER : 1940 [facility]#: [id number] Exam Date/Time: 05/10/2024 12:51 Procedure: XR CHEST [...] Signed Date/Time: 05/10/2024 1:08 PM EDT Normal [facility] XR Chest Single viewon 05-10 [facility] RADIOLOGY [facility] RADIOLOGY [facility] Radiology Study observation (narrative) [facility] XR Chest Single viewOrdered By: Rayo Woods on 05-10-2024 [facility] [employer] Work Phone: ECG 12-LEADon 05-07-2024 ECG 12-LEAD 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 KRISTA Hernandez with an antibacterial soap such as Dial [...] your scheduled surgery time. Please bring your [facility] Surgical folder and medication list with you day of surgery. We encourage you to write down any questions you may have for the surgeon, anesthesiologist, or other members of the surgical team and bring it with you the day of surgery. Please bring photo ID and insurance information. Normal [facility] [id number] 05-04-2024 [id number] Patient instructed t o bring CPAP machine and mask with him on the day of surgery. Patient understood. Normal [facility] [id number] Labs obtained on 1 attempt with 22 gauge needle at [facility] site. Patient tolerated well, site benign. Normal [facility] BLOOD TYPE AND SCREEN GELon 05-04-2024 ABO GROUPING O Normal [facility] Comment on above: Performed By: #### L [id number] ####Associate Professor Of Art: DANIELLA PEREZ ([id number])[facility] B[facility]OD B[facility] ([facility])[address] [place] [address] RH TYPE IN BLOOD Positive Normal [facility] Comment on above: Performed By: #### L [id number] ####Associate Professor Of Art: DANIELLA PEREZ ([id number])[facility] BLOOD [facility] ([address] CBC (HEMOGRAM)on 05-04-2024 Erythrocyte distribution width (RBC) [Ratio] 14.1 % Normal 11.5-15.0 [facility] Comment on above: Performed By: #### L [id number] ####Associate Professor Of Art: DANIELLA PEREZ ([id number])[facility])[address] [place] [address] Hematocrit (Bld) [Volume fraction] 42.3 % Normal 40.0-52.0 [facility] Comment on above: Performed By: #### L AB294 ####Associate Professor Of Art: DANIELLA PEREZ ([id number])[address] Hemoglobin (Bld) [Mass/Vol] 13.4 g/dL Normal 13.0-18.0 [facility] Comment on above: Performed By: #### L AB294 ####Associate Professor Of Art: DANIELLA PEREZ ([id number])[facility] ([facility])[address] [place] [address] MCH (RBC) [Entitic mass] 26.9 pg Normal 26.0-34.0 [facility] Comment on above: Performed By: #### L AB294 ####Associate Professor Of Art: DANIELLA PEREZ ([phone])[facility])[address] [place] [address] MCHC 31.7 % Normal 30.5-36.0 [facility] Comment on above: Performed By: #### L AB294 ####Associate Professor Of Art: DANIELLA PEREZ ([id number])[facility])[address] [place] [address] MCV (RBC) [Entitic vol] 84.8 fL Normal 77.0-99.0 S [facility] Comment on above: Performed By: #### L AB294 ####Associate Professor Of Art: DANIELLA PEREZ ([id number])[facility])[address] [place] [address] Platelet mean volume (Bld) [Entitic vol] 9.6 fL Normal 9.0-12.7 [facility] Comment on above: Performed By: #### L AB294 ####Associate Professor Of Art: DANIELLA PEREZ ([id number])[facility] ([facility])[address] [place] [address] Platelets (Bld) [#/Vol] 199 10*3/uL Normal 140-440 [facility] Comment on above: Performed By: #### L AB294 ####Associate Professor Of Art: DANIELLA PEREZ ([id number])[facility] ([facility])[address] [place] [address] RBC (Bld) [#/Vol] 4.99 10*6/uL Normal 4.40-5.90 [facility] Comment on above: Performed By: #### L AB294 ####Associate Professor Of Art: DANIELLA PEREZ ([id number])[facility])[address] [place] [address] WBC (Bld) [#/Vol] 5.2 10*3/uL Normal 3.6-10.7 [facility] Comment on above: Performed By: #### L AB294 ####Associate Professor Of Art: DANIELLA PEREZ ([id number])[facility])[address] [place] [address] COMPLETE URINALYSISon 2024 BILIRUBIN, TOTAL PRESENCE IN URINE Negative Normal Negative [facility] Comment on above: Performed By: #### L AB347 ####Associate Professor Of Art: DANIELLA PEREZ ([id number])[facility])[address] [place] [address] Clarity (U) Clear Normal Clear [facility] Comment on above: Performed By: #### L AB347 ####Associate Professor Of Art: DANIELLA PEREZ ([id number])[facility])[address] [place] [address] Color (U) Colorless Normal Lt. Yellow [facility] Comment on above: Performed By: #### L AB347 ####Associate Professor Of Art: DANIELLA PEREZ ([id number])[facility] ([facility])[address] [place] [address] GLUCOSE (MG/DL) IN URINE 1,000 mg/dL Abnormal Nor mal (<70) [facility] Comment on above: Performed By: #### L AB347 ####Associate Professor Of Art: DANIELLA PEREZ ([id number])[facility] ([facility])[address] [place] [address] HEMOGLOBIN PRESENCE IN URINE Negative Normal Negative [facility] Comment on above: Performed By: #### L AB347 ####Associate Professor Of Art: DANIELLA PEREZ ([id number])[facility])[address] [place] [address] Ketones Ql (U) Negative Normal Negative [facility] Comment on above: Performed By: #### L AB347 ####Associate Professor Of Art: DANIELLA PEREZ ([id number])[facility])[address] [place] [address] LEUKOCYTE ESTERASE PRESENCE IN URINE BY TEST STRIP Negative Normal Negative [facility] Comment on above: Performed By: #### L [id number] ####Associate Professor Of Art: DANIELLA PEREZ ([id number])[facility])[address] [place] [address] NITRITE PRESENCE IN URINE Negative Normal Negative [facility] Comment on above: Performed By: #### L [id number] ####Associate Professor Of Art: DANIELLA PEREZ ([id number])[facility])[address] [place] [address] pH (U) 5.5 [pH] Normal 5.0-8.0 [facility] Comment on above: Performed By: #### L AB347 ####Associate Professor Of Art: DANIELLA PEREZ ([id number])[facility])[address] [place] [address] Protein (U) [Mass/Vol] Negative Normal Negative [facility] Comment on above: Performed By: #### L AB347 ####Associate Professor Of Art: DANIELLA PEREZ ([id number])[facility])[address] [place] [address] Specific gravity (U) [Rel density] 1.008 Normal 1.005-1.030 [facility] Comment on above: Performed By: #### L AB347 ####Associate Professor Of Art: DANIELLA PEREZ ([phone])[facility])[address] [place] [address] UROBILINOGEN (MG/DL) IN URINE Normal Normal Normal (0-1) [facility] Comment on above: Performed By: #### L [id number] ####Associate Professor Of Art: DANIELLA PEREZ ([id number])[facility])[address] [place] [address] COMPREHENSIVE METABOLIC PANE Venkata 05-04-2024 Albumin [Mass/Vol] 3.8 g/dL Normal 3.4-4.8 [facility] Comment on above: Performed By: #### L AB17 ####Associate Professor Of Art: DANIELLA PEREZ ([id number])[facility] ([facility])[address] [place] [address] ALP [Catalytic activity/Vol] 86 U/L Normal 40-150 [facility] Comment on above: Performed By: #### L AB17 ####Associate Professor Of Art: DANIELLA PEREZ ([id number])[facility])[address] [place] [address] ALT [Catalytic activity/Vol] 12 U/L Normal <40 [facility] Comment on above: Performed By: #### L AB17 ####Associate Professor Of Art: DANIELLA PEREZ ([phone])[facility])[address] [place] [address] Anion gap [Moles/Vol] 9 mmol/L Normal 3-13 [facility] Comment on above: Performed By: #### L AB17 ####Associate Professor Of Art: DANIELLA PEREZ ([id number])[facility])[address] [place] [address] AST [Catalytic activity/Vol] 19 U/L Normal <34 [facility] Comment on above: Performed By: #### L AB17 ####Associate Professor Of Art: DANIELLA PEREZ ([id number])[facility] ([facility])[address] [place] [address] Bilirubin [Mass/Vol] 0.4 mg/dL Normal <1.2 [facility] Comment on above: Performed By: #### L AB17 ####Associate Professor Of Art: DANIELLA PEREZ ([phone])[facility] ([facility])[address] [place] [address] Calcium [Mass/Vol] 9.6 mg/dL Normal 8.8-10.0 [facility] Comment on above: Performed By: #### L AB17 ####Associate Professor Of Art: DANIELLA PEREZ ([id number])[facility])[address] [place] [address] Chloride [Moles/Vol] 103 mmol/L Normal 98-107 [facility] Comment on above: Performed By: #### L AB17 ####Associate Professor Of Art: DANIELLA PEREZ ([id number])[facility] ([facility])[address] [place] [address] CO2 [Moles/Vol] 25 mmol/L Normal 23-31 [facility] Comment on above: Performed By: #### L AB17 ####Associate Professor Of Art: DANIELLA PEREZ ([id number])[facility])[address] [place] [address] Creatinine [Mass/Vol] 0.94 mg/dL Normal 0.72-1.25 [facility] Comment on above: Performed By: #### L AB17 ####Associate Professor Of Art: DANIELLA PEREZ ([id number])[facility] ([facility])[address] [place] [address] [place] GLOMERULAR FILTRATION RATE ML/MIN/1.73 SQ M.PREDICTED 80.9 mL/min/1.73m*2 Normal >60.0 [facility] Comment on above: Result Comment: Calc ulation based on the Chronic Kidney Disease Epidemiology Collaboration (CKD-EPI) equation refit without adjustment for race Performed By: #### L AB17 ####Associate Professor Of Art: DANIELLA PEREZ ([id number])[facility] ([facility])[address] [place] [address] [place] Glucose [Mass/Vol] 90 mg/dL Normal 82-115 [facility] Comment on above: Performed By: #### L AB17 ####Associate Professor Of Art: DANIELLA PEREZ ([phone])[facility])[address] [place] [address] [place] Potassium [Moles/Vol] 3.8 mmol/L Normal 3.5-5.1 [facility] Comment on above: Result Comment: [facility] potassium values may be up to 0.5 mmol/L lower than serum values. Performed By: #### L AB17 ####Associate Professor Of Art: DANIELLA PEREZ ([id number])[facility])[address] [place] [address] Protein [Mass/Vol] 6.7 g/dL Normal 6.4-8.3 [facility] Comment on above: Performed By: #### L AB17 ####Associate Professor Of Art: DANIELLA PEREZ ([id number])[facility])[address] [place] [address] [place] Sodium [Moles/Vol] 137 mmol/L Normal 136-145 [facility] Comment on above: Performed By: #### L AB17 ####Associate Professor Of Art: DANIELLA PEREZ ([id number])[facility])[address] [place] [address] [place] Urea nitrogen [Mass/Vol] 21 mg/dL Normal 9-23 [facility] Comment on above: Performed By: #### L AB17 ####Associate Professor Of Art: DANIELLA PEREZ ([id number])[facility])[address] [place] [address] [place] HEMOGLOBIN A1Con 05-04-2024 Glucose [Mass/Vol] 166 mg/dL Normal [facility] Comment on above: Result Comment: ORDE R COMMENTS: HbA1c values of 5.7-6.4 percent indicate an increased risk for developing diabetes mellitus. HbA1c values greater than or equal to 6.5 percent are diagnostic of diabetes mellitus. For diagnosis of diabetes in individuals without unequivocal hyperglycemia, results should be confirmed by repeat testing. Performed By: #### L AB90 ####Associate Professor Of Art: DANIELLA PEREZ ([id number])[facility])[address] [place] [address] HEMOGLOBIN A1C 7.4 %HbA1C High <5.7 [facility] Comment on above: Result Comment: Norm al less than 5.7% Prediabetes 5.7% to 6.4% Diabetes 6.5% or higher --HgbA1C levels may not be accurate in patients who have renal disease, received recent blood transfusions, are anemic, or who have dyshemoglobinemia. Performed By: #### L AB90 ####Associate Professor Of Art: DANIELLA PEREZ ([phone])[address] MRSA BY PCRon 05-04-2024 MRSA BY [...] modified and its performance characteristics determined by [facility]. The [place]. [place]. Food and Drug Administration has not approved or cleared this test; however, FDA clearance or approval is not currently required for clinical use. The results are not intended to be used as the sole means for clinical diagnosis or patient management decisions. Normal [facility] Comment on above: Performed By: #### L [id number] #### Associate Professor Of Art: DANIELLA PEREZ ([id number]) [address] PROTIME AND APTTon aPTT Coag (Bld) [Time] 31.6 s High 20.0-30.5 [facility] Comment on above: Performed By: #### L [id number] ####Associate Professor Of Art: DANIELLA PEREZ ([id number])[facility] ([facility] INR Coag (PPP) [Relative time] 1.1 {INR} Normal 0.9-1.1 [facility] Comment on above: Result Comment: Poli mmended [...] prevent Myocardial Infarction Performed By: #### L [id number] ####Associate Professor Of Art: DANIELLA PEREZ ([id number])[facility])[address] [place] [address] PT Coag (PPP) [Time] 12.1 s High 9.0-12.0 [facility] [employer] [facility] Comment on above: Performed By: #### L [id number] ####Associate Professor Of Art: DANIELLA PEREZ ([id number])[facility] ([facility])[address] [place] [address] Progress Noteon 05-04-2024 Progress Note [employer] Farhana Serranoonnell : 1940 Primary Care Physician: No primary care provider on file. The patient and/or family/surrogate voluntarily agreed to participate in ACP services. Patient?s cognitive capacity: Patient is Alert and [place] to person, place and time Code Status: [x] [FULL CODE - Continue all advanced life support: CPR,intubation,invasi ve procedures] [_] [DNR-CCA - DO NOT do CPR, intubation] [_] [DNR-STEREO PLOTTER OPERATOR - Comfort care only] [_] DNR [...] care, with patient and/or family/surrogate. 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 XR CHEST 2 VIEWSon 5 XR CHEST [...] 9:[address] [facility] XR Chest 2 Viewson 5 1. No acute finding. Report Dictated on Electronically Signed By: Wagner Mclean MD Electronically Signed Date/Time: 05/04/2024 9:02 PM EDT [facility] Patient Name: FARHANA THRASHER : 1940 Exam Date/Time: 05/04/2024 13:00 Procedure: XR CHEST 2 VIEWS Ordering Provider: MCBRIDE NICOLE Reason For Exam: PREOPERATIVE ANESTHESIA CHEST X-RAY TWO VIEWS CLINICAL INDICATION: PREOPERATIVE ANESTHESIA TECHNIQUE: Frontal and lateral views of the chest. COMPARISON: None FINDINGS: Lungs show no significant consolidation. No pleural effusion or pneumothorax. No vascular congestion. Heart size normal. [facility] Wagner Mclean MD - 05/04/2024 Patient Name: FARHANA THRASHER : 1940 [id number] Exam Date/Time: 05/04/2024 13:00 Procedure: XR CHEST [...] Electronically Signed Date/Time: 05/04/2024 9:02 PM EDT [facility] Radiology Study observation (narrative) [facility] XR Chest 2 ViewsOrdered By: Wagner Mclean on 05-04-2024 [facility] Work Phone: [phone] 04-25-2024 29 Addended by: CARTER LE on: 04/25/2024 01:57 PM Modules accepted: Orders Normal [facility] Office Visiton 04-25-2024 Follow-up visit [id number] Nimisha Thrasher 1940 M Date Provider Department Center 04/25/2024 [id number], [facility] CT None Family History Problem Relation Age of Onset Stroke Mother COPD Father Coronary artery disease Father Coronary artery disease Brother Heart attack Brother Family Status - Relation Status Age at Mother Father Brother Level of Service:46721 [place] OFFICE/OUTPATIENT NEW HIGH MDM 60 MINUTES Reason for Visit and Comments: New Patient [542] Normal [facility] Progress Noteon 04-25-2024 Progress Note Pre op teaching done with patient. Instructed to hold NSAIDS 7 days prior to surgery. All other medications per [facility] protocol. Pharmacy confirmed. All questions answered. Normal [facility] Progress Note [facility] MEDICAL [facility] CARDIOVASCULAR & THORACIC SURGERY [address] [facility] [address] [facility] [address] Dept: [phone] Dept Loc: [phone] Visit type: New Reason for Visit: Multivessel [...] right coronary artery. History of Present Illness Nimisha Thrasher is a 84 y.o. male referred [...] Julio Cesar (more content not included)... Normal [facility] Cardiac Cath Diagnosticon Cardiac Cath Diagnostic Normal [facility] Absolute lymphocyte countOrd ered By: Raven Thrasher on 04-21-2024 Lymphocytes Auto (Unsp spec) [#/Vol] 1.33 10*3/uL 0.83-4.51 [facility] Absolute neutrophil countOrd ered By: Raven Thrasher on 04-21-2024 Neutrophils (Bld) [#/Vol] 5.7 10*3/uL 2.0-7.7 [facility] Automated lymphocyte count a s percentage of total leukocytesOrdered By: Raven Thrasher on 04-21-2024 Lymphocytes/100 WBC Auto (Unsp spec) 16.4 % Low 19-41 [facility] BUN/creatinine ratioOrdered By: Raven Thrasher on 04-21-2024 Urea nitrogen/Creatinine [Mass ratio] 24.5 mg/mg High 10-20 [facility] Basic Metabolic Profile (BMP )on 04-21-2024 Anion gap [Moles/Vol] 14 mmol/L Normal 5-15 [facility] Comment on above: Performed By: #### L 500.2500, L100.0100, L300.3900 ####[facility] [address] [place], [address] BUN/CRE 24.5 RATIO High 10-20 [facility] Comment on above: Performed By: #### L 500.2500, L100.0100, L300.3900 ####[facility] [address] [place], [address] Calcium [Mass/Vol] 9.3 mg/dL Normal 7.6-11.0 [facility] Comment on above: Performed By: #### L 500.2500, L100.0100, L300.3900 ####[facility] [address] [place], [address] Chloride [Moles/Vol] 104 mmol/L Normal 96-108 [facility] Comment on above: Performed By: #### L 500.2500, L100.0100, L300.3900 ####[facility] [address] [place], [address] CO2 [Moles/Vol] 21.9 mmol/L Low 22.0-29.0 [facility] Comment on above: Performed By: #### L 500.2500, L100.0100, L300.3900 ####[facility] [address] [place], [address] Creatinine [Mass/Vol] 0.96 mg/dL Normal 0.70-1.20 [facility] Comment on above: Performed By: #### L 500.2500, L100.0100, L300.3900 ####[facility] [address] [place], [address] GFR/1.73 sq M.predicted among non-blacks MDRD (S/P/Bld) [Vol rate/Area] 79 mL/min/{1.73_m2} Normal >60 [facility] Comment on above: Result Comment: mL/m in/1.73m2 CKD-EPI Creatinine Equation (2020) Performed By: #### L 500.2500, L100.0100, L300.3900 ####[facility] [address] [place], [address] Glucose [Mass/Vol] 149 mg/dL High 70-99 [facility] Comment on above: Performed By: #### L 500.2500, L100.0100, L300.3900 ####[facility] [address] [place], [address] Potassium [Moles/Vol] 4.6 mmol/L Normal 3.3-5.1 [facility] Comment on above: Performed By: #### L 500.2500, L100.0100, L300.3900 ####[facility] [address] [place], [address] Sodium [Moles/Vol] 139 mmol/L Normal 133-145 [facility] Comment on above: Performed By: #### L 500.2500, L100.0100, L300.3900 ####[facility] [address] [place], [address] Urea nitrogen [Mass/Vol] 24 mg/dL High 4-19 [facility] Comment on above: Performed By: #### L 500.2500, L100.0100, L300.3900 ####[facility] [address] [place], [address] Basophil percentageOrdered B y: Raven Thrasher on 04-21-2024 Basophils/100 WBC (Bld) 0.7 % 0-1 [facility] CBC W/Diff, Automatedon 03-26 Absolute Lymph 1.33 X10 3/uL Normal 0.83-4.51 [facility] Comment on above: Performed By: #### L 500.2500, L100.0100, L300.3900 ####[facility] [address] [place], [address] Absolute Neut 5.7 X10 3/uL Normal 2.0-7.7 [facility] Comment on above: Performed By: #### L 500.2500, L100.0100, L300.3900 ####[facility] [address] [place], [address] Basophils/100 WBC (Bld) 0.7 % Normal 0-1 [facility] Comment on above: Performed By: #### L 500.2500, L100.0100, L300.3900 ####[facility] [address] [place], [address] Eosinophils/100 WBC (Bld) 1.0 % Normal 0-5 [facility] Comment on above: Performed By: #### L 500.2500, L100.0100, L300.3900 ####[facility] [address] [place], [address] Erythrocyte distribution width (RBC) [Ratio] 14.1 % Normal 11.6-14.6 [facility] Comment on above: Performed By: #### L 500.2500, L100.0100, L300.3900 ####[facility] [address] [place], [address] Hematocrit (Bld) [Volume fraction] 40.8 % Normal 40-54 [facility] Comment on above: Performed By: #### L 500.2500, L100.0100, L300.3900 ####[facility] [address] [place], [address] Hemoglobin (Bld) [Mass/Vol] 13.3 g/dL Normal 13.0-16.5 [facility] Comment on above: Performed By: #### L 500.2500, L100.0100, L300.3900 ####[facility] [address] [place], [address] IG% 0.900 Normal 0.0-0.9 [facility] Comment on above: Result Comment: IG% - Immature Granulocytes (promyelocytes, myelocytes andmetamyelocytes) > 1% indicates that a LEFT SHIFT is Present. Performed By: #### L 500.2500, L100.0100, L300.3900 ####[facility] [address] [place], [address] Lymphocytes/100 WBC (Bld) 16.4 % Low 19-41 [facility] Comment on above: Performed By: #### L 500.2500, L100.0100, L300.3900 ####[facility] [address] [place], [address] MCH (RBC) [Entitic mass] 27.8 pg Normal 27.0-32.0 [facility] Comment on above: Performed By: #### L 500.2500, L100.0100, L300.3900 ####[facility] [address] [place], [address] MCHC (RBC) [Mass/Vol] 32.6 g/dL Normal 32-36 [facility] Comment on above: Performed By: #### L 500.2500, L100.0100, L300.3900 ####[facility] [address] [place], [address] MCV (RBC) [Entitic vol] 85.2 fL Normal 80-94 [facility] Comment on above: Performed By: #### L 500.2500, L100.0100, L300.3900 ####[facility] [address] [place], [address] Monocytes/100 WBC (Bld) 11.1 % High 0-10 [facility] Comment on above: Performed By: #### L 500.2500, L100.0100, L300.3900 ####[facility] [address] [place], [address] Neutrophils/100 WBC (Bld) 69.9 % Normal 47-70 [facility] Comment on above: Performed By: #### L 500.2500, L100.0100, L300.3900 ####[facility] [address] [place], [address] Nucleated RBC (Bld) [#/Vol] 0 10*3/uL Normal 0-5 [facility] Comment on above: Performed By: #### L 500.2500, L100.0100, L300.3900 ####[facility] [address] [place], [address] Platelet mean volume (Bld) [Entitic vol] 9.2 fL Normal 6.2-12.0 [facility] Comment on above: Performed By: #### L 500.2500, L100.0100, L300.3900 ####[facility] [address] [place], [address] Platelets (Bld) [#/Vol] 195 10*3/uL Normal 150-450 [facility] Comment on above: Performed By: #### L 500.2500, L100.0100, L300.3900 ####[facility] [address] [place], [address] RBC (Bld) [#/Vol] 4.79 10*6/uL Normal 4.6-6.2 [facility] Comment on above: Performed By: #### L 500.2500, L100.0100, L300.3900 ####[facility] [address] [place], [address] RDW SD 43.5 fl Normal 35.1-43.9 [facility] Comment on above: Performed By: #### L 500.2500, L100.0100, L300.3900 ####[facility] [address] [place], [address] WBC (Bld) [#/Vol] 8.1 10*3/uL Normal 4.4-11.0 [facility] Comment on above: Performed By: #### L 500.2500, L100.0100, L300.3900 ####[facility] [address] [place], [address] Carbon dioxide measurementOr dered By: Raven Thrasher on 04-21-2024 CO2 [Moles/Vol] 21.9 mmol/L Low 22.0-29.0 [facility] Chest PA and Lateralon 04-21 Chest PA and Lateral Normal [facility] Chloride measurementOrdered By: Raven Thrasher on 04-21-2024 Chloride [Moles/Vol] 104 mmol/L 96-108 [facility] Eosinophil percentageOrdered By: Raven Thrasher on 04-21-2024 Eosinophils/100 WBC (Bld) 1.0 % 0-5 [facility] Erythrocyte distribution wid th ratioOrdered By: Raven Thrasher on 04-21-2024 Erythrocyte distribution width (RBC) [Ratio] 14.1 % 11.6-14.6 [facility] Erythrocyte distribution wid th standard deviationOrdered By: Raven Thrasher on 04-21-2024 Erythrocyte distribution width (RBC) [Entitic vol] 43.5 fL 35.1-43.9 [facility] Erythrocyte distribution width (RBC) [Ratio] 43.5 fl 35.1-43.9 [facility] GFR/1.73 sq M.predicted [place] non-blacks MDRD (S/P/Bld) [Vol rate/Area]Ordered By: Raven Thrasher on 04-21-2024 Estimated GFR (MDRD) Non-Af Amer 79 >60 [facility] Comment on above: mL/min/1.73m2 CKD-EP I Creatinine Equation (2020) Glomerular filtration rate ( GFR) estimation/1.73 sq m using serum, plasma, or whole bOrdered By: Raven Thrasher on 04-21-2024 GFR/1.73 sq M.predicted among non-blacks MDRD (S/P/Bld) [Vol rate/Area] 79 mL/min/{1.73_m2} >60 [facility] Comment on above: mL/min/1.73m2 CKD-EP I Creatinine Equation (2020) Hematocrit Auto (Bld) [Volum e fraction]Ordered By: Raven Thrasher on 04-21-2024 Hematocrit (Bld) [Volume fraction] 40.8 % 40-54 [facility] Hemoglobin measurementOrdere d By: Raven Thrasher on 04-21-2024 Hemoglobin (Bld) [Mass/Vol] 13.3 g/dL 13.0-16.5 [facility] Immature granulocytes/100 WB C Auto (Bld)Ordered By: Raven Thrasher on 04-21-2024 Immature granulocytes/100 WBC (Bld) 0.900 % 0.0-0.9 [facility] Comment on above: IG% - Immature Granu locytes (promyelocytes, myelocytes and metamyelocytes) > 1% indicates that a LEFT SHIFT is Present. International normalized rat io (INR) calculationOrdered By: Raven Thrasher on 04-21-2024 INR Coag (Bld) [Relative time] 1.1 {INR} [facility] Lymphocytes Auto (Unsp spec) [#/Vol]Ordered By: Raven Thrasher on 04-21-2024 Lymphocytes (Bld) [#/Vol] 1.33 10*3/uL 0.83-4.51 [facility] Lymphocytes/100 WBC Auto (Un sp spec)Ordered By: Raven Thrasher on 04-21-2024 Lymphocytes/100 WBC (Bld) 16.4 % Low 19-41 [facility] MCV (mean corpuscular volume ) determinationOrdered By: Raven Thrasher on 04-21-2024 MCV (RBC) [Entitic vol] 85.2 fL 80-94 [facility] Mean corpuscular hemoglobin (MCH) determinationOrdered By: Raven Thrasher on 04-21-2024 MCH (RBC) [Entitic mass] 27.8 pg 27.0-32.0 [facility] Mean corpuscular hemoglobin concentration (MCHC) determinationOrdered By: Raven Thrasher on 04-21-2024 MCHC (RBC) [Mass/Vol] 32.6 g/dL 32-36 [facility] Mean platelet volume determi nationOrdered By: Raven Thrasher on 04-21-2024 Platelet mean volume (Bld) [Entitic vol] 9.2 fL 6.2-12.0 [facility] Monocyte percentageOrdered B y: Raven Thrasher on 04-21-2024 Monocytes/100 WBC (Bld) 11.1 % High 0-10 [facility] Neutrophil percentageOrdered By: Raven Thrasher on 04-21-2024 Neutrophils/100 WBC (Bld) 69.9 % 47-70 [facility] Nucleated red blood cell per centageOrdered By: Raven Thrasher on 04-21-2024 Nucleated RBC/100 WBC (Bld) [Ratio] 0 % 0-5 [facility] Platelet countOrdered By: Lynette Thrasher on 04-21-2024 Platelets (Bld) [#/Vol] 195 10*3/uL 150-450 [facility] Prothrombin Time w/INRon INR Coag (PPP) [Relative time] 1.1 {INR} Normal [facility] Comment on above: Performed By: #### L 500.2500, L100.0100, L300.3900 ####[facility] [address] [place], [address] PT Coag (PPP) [Time] 14.2 s Normal 11.7-14.9 [facility] Comment on above: Performed By: #### L 500.2500, L100.0100, L300.3900 ####[facility] [address] [place], [address] Prothrombin timeOrdered By: Raven Thrasher on 04-21-2024 PT Coag (PPP) [Time] 14.2 s 11.7-14.9 [facility] RBC Auto (Bld) [#/Vol]Ordere d By: Raven Thrasher on 04-21-2024 RBC (Bld) [#/Vol] 4.79 10*6/uL 4.6-6.2 [facility] Serum creatinine measurement (mass/volume)Ordered By: Raven Thrasher on 04-21-2024 Creatinine [Mass/Vol] 0.96 mg/dL 0.70-1.20 [facility] Serum glucose measurement (m ass/volume)Ordered By: Raven Thrasher on 04-21-2024 Glucose [Mass/Vol] 149 mg/dL High 70-99 [facility] Serum or plasma anion gap de termination (moles/volume)Ordered By: Raven Thrasher on 04-21-2024 Anion gap [Moles/Vol] 14 mmol/L 5-15 [facility] Serum or plasma calcium mt urement (mass/volume)Ordered By: Raven Thrasher on 04-21-2024 Calcium [Mass/Vol] 9.3 mg/dL 7.6-11.0 [facility] Serum or plasma potassium me asurementOrdered By: Raven Thrasher on 04-21-2024 Potassium [Moles/Vol] 4.6 mmol/L 3.3-5.1 [facility] Serum or plasma sodium measu rement (moles/volume)Ordered By: Raven Thrasher on 04-21-2024 Sodium [Moles/Vol] 139 mmol/L 133-145 [facility] Serum or plasma urea nitroge n measurement (mass/volume)Ordered By: Raven Thrasher on 04-21-2024 Urea nitrogen [Mass/Vol] 24 mg/dL High 4-19 [facility] White blood cell (WBC) count Ordered By: Raven Thrasher on 04-21-2024 WBC (Bld) [#/Vol] 8.1 10*3/uL 4.4-11.0 [facility] Stress Reporton 04-20-2024 Stress Report Normal [facility] Carotid Duplex Ultrasoundon 04-17-2024 Carotid Duplex Ultrasound Normal [facility] Echo Completeon 04-17-2024 Echo Complete Normal [facility] Cardiology Visit Reporton Cardiology Visit Report Normal [facility] Testosterone Freeon 03-12-19 TESTOSTER FREE 1.1 pg/mL Abnormal 6.6-18.1 [facility] Comment on above: Result Comment: Perf ormed at: [facility] [id number] Director: Lucas Sorto MD, Phone: [phone] Performed By: #### L 500.4050, L501.9520, L501.9985, L100.0100, L3400.4800, L500.4100, L506.1000 ####[facility] [address] [place], [address] 63-NP-Djjeduq DOrdered By: Heidy Moon on 03-07-2024 Vitamin D 25-Hydroxy 40.2 ng/mL [facility] Comment on above: Vitamin D 25(OH) Sta tus Range Deficiency <20 ng/mL (50nmol/L) Insufficiency 20 - 30 ng/mL (50 - 75 nmol/L) Sufficiency 30 - 100 ng/mL (75 - 250 nmol/L) Toxicity >100 ng/mL (>250 nmol/L) Absolute neutrophil countOrd ered By: Fredis Moon on 03-07-2024 Neutrophils (Bld) [#/Vol] 4.8 10*3/uL 2.0-7.7 [facility] Albumin to globulin ratioOrd ered By: Fredis Moon on 03-07-2024 Albumin/Globulin [Mass ratio] 0.9 {ratio} 0.9-2.4 [facility] Basophil percentageOrdered B y: Fredis Moon on 03-07-2024 Basophils/100 WBC (Bld) 0.7 % 0-1 [facility] Bilirubin, totalOrdered By: Fredis Moon on 03-07-2024 Bilirubin [Mass/Vol] 0.40 mg/dL 0.20-1.00 [facility] Comment on above: For patients on eltr ombopag therapy, use of Dimension [place] TBIL is not recommended. Blood urea nitrogen (BUN)/cr eatinine ratioOrdered By: Fredis Moon on 03-07-2024 Urea nitrogen/Creatinine [Mass ratio] 25.1 mg/mg High 10-20 [facility] CBC W/Diff, Automatedon 02-22 Absolute Lymph 1.25 X10 3/uL Normal 0.83-4.51 [facility] Comment on above: Performed By: #### L 500.4050, L501.9520, L501.9985, L100.0100, L3400.4800, L500.4100, L506.1000 ####[facility] [address] [place], [address] Absolute Neut 4.8 X10 3/uL Normal 2.0-7.7 [facility] Comment on above: Performed By: #### L 500.4050, L501.9520, L501.9985, L100.0100, L3400.4800, L500.4100, L506.1000 ####[facility] [address] [place], [address] Basophils/100 WBC (Bld) 0.7 % Normal 0-1 [facility] Comment on above: Performed By: #### L 500.4050, L501.9520, L501.9985, L100.0100, L3400.4800, L500.4100, L506.1000 ####[facility] [address] [place], [address] Eosinophils/100 WBC (Bld) 1.4 % Normal 0-5 [facility] Comment on above: Performed By: #### L 500.4050, L501.9520, L501.9985, L100.0100, L3400.4800, L500.4100, L506.1000 ####[facility] [address] [place], [address] Erythrocyte distribution width (RBC) [Ratio] 14.1 % Normal 11.6-14.6 [facility] Comment on above: Performed By: #### L 500.4050, L501.9520, L501.9985, L100.0100, L3400.4800, L500.4100, L506.1000 ####[facility] [address] [place], [address] Hematocrit (Bld) [Volume fraction] 40.6 % Normal 40-54 [facility] Comment on above: Performed By: #### L 500.4050, L501.9520, L501.9985, L100.0100, L3400.4800, L500.4100, L506.1000 ####[facility] [address] [place], [address] Hemoglobin (Bld) [Mass/Vol] 13.0 g/dL Normal 13.0-16.5 [facility] Comment on above: Performed By: #### L 500.4050, L501.9520, L501.9985, L100.0100, L3400.4800, L500.4100, L506.1000 ####[facility] [address] [place], [address] IG% 1.100 High 0.0-0.9 [facility] Comment on above: Result Comment: IG% - Immature Granulocytes (promyelocytes, myelocytes andmetamyelocytes) > 1% indicates that a LEFT SHIFT is Present. Performed By: #### L 500.4050, L501.9520, L501.9985, L100.0100, L3400.4800, L500.4100, L506.1000 ####[facility] [address] [place], [address] Lymphocytes/100 WBC (Bld) 17.5 % Low 19-41 [facility] Comment on above: Performed By: #### L 500.4050, L501.9520, L501.9985, L100.0100, L3400.4800, L500.4100, L506.1000 ####[facility] [address] [place], [address] MCH (RBC) [Entitic mass] 27.5 pg Normal 27.0-32.0 [facility] Comment on above: Performed By: #### L 500.4050, L501.9520, L501.9985, L100.0100, L3400.4800, L500.4100, L506.1000 ####[facility] [address] [place], [address] MCHC (RBC) [Mass/Vol] 32.0 g/dL Normal 32-36 [facility] Comment on above: Performed By: #### L 500.4050, L501.9520, L501.9985, L100.0100, L3400.4800, L500.4100, L506.1000 ####[facility] [address] [place], [address] MCV (RBC) [Entitic vol] 86.0 fL Normal 80-94 [facility] Comment on above: Performed By: #### L 500.4050, L501.9520, L501.9985, L100.0100, L3400.4800, L500.4100, L506.1000 ####[facility] [address] [place], [address] Monocytes/100 WBC (Bld) 12.5 % High 0-10 [facility] Comment on above: Performed By: #### L 500.4050, L501.9520, L501.9985, L100.0100, L3400.4800, L500.4100, L506.1000 ####[facility] [address] [place], [address] Neutrophils/100 WBC (Bld) 66.8 % Normal 47-70 [facility] Comment on above: Performed By: #### L 500.4050, L501.9520, L501.9985, L100.0100, L3400.4800, L500.4100, L506.1000 ####[facility] [address] [place], [address] Nucleated RBC (Bld) [#/Vol] 0 10*3/uL Normal 0-5 [facility] Comment on above: Performed By: #### L 500.4050, L501.9520, L501.9985, L100.0100, L3400.4800, L500.4100, L506.1000 ####[facility] [address] [place], [address] Platelet mean volume (Bld) [Entitic vol] 9.2 fL Normal 6.2-12.0 [facility] Comment on above: Performed By: #### L 500.4050, L501.9520, L501.9985, L100.0100, L3400.4800, L500.4100, L506.1000 ####[facility] [address] [place], [address] Platelets (Bld) [#/Vol] 198 10*3/uL Normal 150-450 [facility] Comment on above: Performed By: #### L 500.4050, L501.9520, L501.9985, L100.0100, L3400.4800, L500.4100, L506.1000 ####[facility] [address] [place], [address] RBC (Bld) [#/Vol] 4.72 10*6/uL Normal 4.6-6.2 [facility] Comment on above: Performed By: #### L 500.4050, L501.9520, L501.9985, L100.0100, L3400.4800, L500.4100, L506.1000 ####[facility] [address] [place], [address] RDW SD 44.3 fl High 35.1-43.9 [facility] Comment on above: Performed By: #### L 500.4050, L501.9520, L501.9985, L100.0100, L3400.4800, L500.4100, L506.1000 ####[facility] [address] [place], [place], [phone] WBC (Bld) [#/Vol] 7.1 10*3/uL Normal 4.4-11.0 [facility] Comment on above: Performed By: #### L 500.4050, L501.9520, L501.9985, L100.0100, L3400.4800, L500.4100, L506.1000 ####[facility] [address] [place], [place], [id number] Carbon dioxide measurementOr dered By: Fredis Moon on 03-07-2024 CO2 [Moles/Vol] 30.0 mmol/L 21.0-32.0 [facility] Chloride measurementOrdered By: Fredis Moon on 03-07-2024 Chloride [Moles/Vol] 107 mmol/L 98-107 [facility] Comprehensive Metabolic Prof ilon 03-07-2024 Albumin [Mass/Vol] 3.3 g/dL Normal 3.2-5.0 [facility] Comment on above: Performed By: #### L 500.4050, L501.9520, L501.9985, L100.0100, L3400.4800, L500.4100, L506.1000 ####[facility] [address] [place], [address] Albumin/Globulin [Mass ratio] 0.9 {ratio} Normal 0.9-2.4 [facility] Comment on above: Performed By: #### L 500.4050, L501.9520, L501.9985, L100.0100, L3400.4800, L500.4100, L506.1000 ####[facility] [address] [place], [address] ALK P 103 U/L Normal 45-117 [facility] Comment on above: Performed By: #### L 500.4050, L501.9520, L501.9985, L100.0100, L3400.4800, L500.4100, L506.1000 ####[facility] [address] [place], [address] ALT [Catalytic activity/Vol] 18 U/L Normal 16-61 [facility] [facility] Comment on above: Performed By: #### L 500.4050, L501.9520, L501.9985, L100.0100, L3400.4800, L500.4100, L506.1000 ####[facility] [address] [place], [address] AST [Catalytic activity/Vol] 15 U/L Normal 15-37 [facility] Comment on above: Performed By: #### L 500.4050, L501.9520, L501.9985, L100.0100, L3400.4800, L500.4100, L506.1000 ####[facility] [address] [place], [address] Bilirubin [Mass/Vol] 0.40 mg/dL Normal 0.20-1.00 [facility] Comment on above: Result Comment: For patients on eltrombopag therapy, use of Dimension [place] TBIL is not recommended. Performed By: #### L 500.4050, L501.9520, L501.9985, L100.0100, L3400.4800, L500.4100, L506.1000 ####[facility] [address] [place], [address] BUN/CRE 25.1 RATIO High 10-20 [facility] Comment on above: Performed By: #### L 500.4050, L501.9520, L501.9985, L100.0100, L3400.4800, L500.4100, L506.1000 ####[facility] [address] [place], [address] CA,Total 8.8 mg/dL Normal 8.5-10.1 [facility] Comment on above: Performed By: #### L 500.4050, L501.9520, L501.9985, L100.0100, L3400.4800, L500.4100, L506.1000 ####[facility] [address] [place], [address] Chloride [Moles/Vol] 107 mmol/L Normal 98-107 [facility] Comment on above: Performed By: #### L 500.4050, L501.9520, L501.9985, L100.0100, L3400.4800, L500.4100, L506.1000 ####[facility] [address] [place], [address] CO2 [Moles/Vol] 30.0 mmol/L Normal 21.0-32.0 [facility] Comment on above: Performed By: #### L 500.4050, L501.9520, L501.9985, L100.0100, L3400.4800, L500.4100, L506.1000 ####[facility] [address] [place], [address] Creatinine [Mass/Vol] 1.00 mg/dL Normal 0.70-1.30 [facility] Comment on above: Result Comment: The validity of the calculated GFR GFRAA in patients over70 years has not been determined. Clinical correlation isessential. Performed By: #### L 500.4050, L501.9520, L501.9985, L100.0100, L3400.4800, L500.4100, L506.1000 ####[facility] [address] [place], [address] EST GFR - AA 93 mL/min Normal >60 [facility] Comment on above: Result Comment: Afri can [place] GFR Calc Performed By: #### L 500.4050, L501.9520, L501.9985, L100.0100, L3400.4800, L500.4100, L506.1000 ####[facility] [address] [place], [place], [phone] GAP 5 Normal 5-15 [facility] Comment on above: Performed By: #### L 500.4050, L501.9520, L501.9985, L100.0100, L3400.4800, L500.4100, L506.1000 ####[facility] [address] [place], [place], [phone] GFR/1.73 sq M.predicted among non-blacks MDRD (S/P/Bld) [Vol rate/Area] 77 mL/min/{1.73_m2} Normal >60 [facility] Comment on above: Result Comment: Non- GFR Calc Performed By: #### L 500.4050, L501.9520, L501.9985, L100.0100, L3400.4800, L500.4100, L506.1000 ####[facility] [address] [place], [address] Globulin (S) [Mass/Vol] 3.6 g/dL Normal 2.2-4.2 [facility] Comment on above: Performed By: #### L 500.4050, L501.9520, L501.9985, L100.0100, L3400.4800, L500.4100, L506.1000 ####[facility] [address] [place], [address] Glucose [Mass/Vol] 141 mg/dL High 74-106 [facility] Comment on above: Result Comment: Fast ing Glucose result greater than or equal to 126 mg/dLsuggests DIABETES MELLITUS per A.D.A. criteria. Performed By: #### L 500.4050, L501.9520, L501.9985, L100.0100, L3400.4800, L500.4100, L506.1000 ####[facility] [address] [place], [address] Potassium [Moles/Vol] 4.9 mmol/L Normal 3.5-5.1 [facility] Comment on above: Performed By: #### L 500.4050, L501.9520, L501.9985, L100.0100, L3400.4800, L500.4100, L506.1000 ####[facility] [address] [place], [address] Sodium [Moles/Vol] 142 mmol/L Normal 136-145 [facility] Comment on above: Performed By: #### L 500.4050, L501.9520, L501.9985, L100.0100, L3400.4800, L500.4100, L506.1000 ####[facility] [address] [place], [address] T PROT 6.9 g/dL Normal 6.4-8.2 [facility] Comment on above: Performed By: #### L 500.4050, L501.9520, L501.9985, L100.0100, L3400.4800, L500.4100, L506.1000 ####[facility] [address] [place], [address] Urea nitrogen [Mass/Vol] 25 mg/dL High 7-18 [facility] Comment on above: Performed By: #### L 500.4050, L501.9520, L501.9985, L100.0100, L3400.4800, L500.4100, L506.1000 ####[facility] [address] [place], [address] Eosinophil percentageOrdered By: Fredis Moon on 03-07-2024 Eosinophils/100 WBC (Bld) 1.4 % 0-5 [facility] Erythrocyte distribution wid th ratioOrdered By: Fredis Moon on 03-07-2024 Erythrocyte distribution width (RBC) [Ratio] 14.1 % 11.6-14.6 [facility] Erythrocyte distribution wid th standard deviationOrdered By: Fredis Moon on 03-07-2024 Erythrocyte distribution width (RBC) [Entitic vol] 44.3 fL High 35.1-43.9 [facility] Estimated glomerular filtrat ion rate (GFR) AmericanOrdered By: Fredis Moon on 03-07-2024 Estimated GFR (MDRD) Amer 93 mL/min >60 [facility] Comment on above: GFR Calc Glomerular filtration rate ( GFR) estimationOrdered By: Fredis Moon on 03-07-2024 Estimated GFR (MDRD) Non-Af Amer 77 mL/min >60 [facility] Comment on above: Non- GFR Calc Glucose measurementOrdered B y: Fredis Moon on 03-07-2024 Glucose [Mass/Vol] 141 mg/dL High 74-106 [facility] Comment on above: Fasting Glucose resu lt greater than or equal to 126 mg/dL suggests DIABETES MELLITUS per A.D.A. criteria. Hematocrit Auto (Bld) [Volum e fraction]Ordered By: Fredis Moon on 03-07-2024 Hematocrit (Bld) [Volume fraction] 40.6 % 40-54 [facility] Hemoglobin A1con 03-07-2024 HbA1c (Bld) [Mass fraction] 7.8 % High 3.8-5.6 [facility] Comment on above: Result Comment: Norm al < 5.7 % Prediabetic 5.7 - 6.4 % Diabetic >or= 6.5 % Please note range changes. Performed By: #### L 500.4050, L501.9520, L501.9985, L100.0100, L3400.4800, L500.4100, L506.1000 ####[facility] [address] [place], [address] Hemoglobin A1c percentageOrd ered By: Fredis Moon on 03-07-2024 HbA1c (Bld) [Mass fraction] 7.8 % High 3.8-5.6 [facility] Comment on above: Normal < 5.7 % Predi abetic 5.7 - 6.4 % Diabetic >or= 6.5 % Please note range changes. Hemoglobin measurementOrdere d By: Fredis Moon on 03-07-2024 Hemoglobin (Bld) [Mass/Vol] 13.0 g/dL 13.0-16.5 [facility] High density lipoprotein (HD L) measurementOrdered By: Fredis Moon on 03-07-2024 Cholesterol in HDL [Mass/Vol] 45 mg/dL >40 [facility] Comment on above: The drugs N-Acetylcy steine and Metamizole may falsely depress this assay. Reference Range HDL <40 mg/dL Low HDL Cholesterol HDL >or= 60 mg/dL High HDL Cholesterol Immature granulocytes/100 WB C Auto (Bld)Ordered By: Fredis Moon on 03-07-2024 Immature granulocytes/100 WBC (Bld) 1.100 % High 0.0-0.9 [facility] Comment on above: IG% - Immature Granu locytes (promyelocytes, myelocytes and metamyelocytes) > 1% indicates that a LEFT SHIFT is Present. Laboratory - Chemistry and C hemistry - challengeOrdered By: Fredis Moon on 03-07-2024 AST [Catalytic activity/Vol] 15 U/L 15-37 [facility] Lipid Profileon 03-07-2024 Cholesterol [Mass/Vol] 113 mg/dL Normal 200 [facility] Comment on above: Result Comment: <200 mg/dL Desirable 200-240 mg/dL Borderline >240 mg/dL High Risk Performed By: #### L 500.4050, L501.9520, L501.9985, L100.0100, L3400.4800, L500.4100, L506.1000 ####[facility] [address] [place], [address] Cholesterol in HDL [Mass/Vol] 45 mg/dL Normal [facility] Comment on above: Result Comment: The drugs N-Acetylcysteine and Metamizole may falselydepress this assay. Reference Range HDL <40 mg/dL Low HDL Cholesterol HDL >or= 60 mg/dL High HDL Cholesterol Performed By: #### L 500.4050, L501.9520, L501.9985, L100.0100, L3400.4800, L500.4100, L506.1000 ####[facility] [address] [place], [address] Cholesterol in LDL [Mass/Vol] -4 mg/dL Low 0-130 [facility] Comment on above: Performed By: #### L 500.4050, L501.9520, L501.9985, L100.0100, L3400.4800, L500.4100, L506.1000 ####[facility] [address] [place], [address] Cholesterol in VLDL [Mass/Vol] 72 mg/dL High 5-40 [facility] Comment on above: Performed By: #### L 500.4050, L501.9520, L501.9985, L100.0100, L3400.4800, L500.4100, L506.1000 ####[facility] [address] [place], [address] Triglyceride [Mass/Vol] 362 mg/dL High [facility] Comment on above: Result Comment: The drugs N-Acetylcysteine and Metamizole may falselydepress this assay.Serum Triglycerides Reference Interval Normal <150 mg/dL Borderline high 150 - 199 mg/dL High 200 - 499 mg/dL Very High > or = 500 mg/dL Performed By: #### L 500.4050, L501.9520, L501.9985, L100.0100, L3400.4800, L500.4100, L506.1000 ####[facility] [address] [place], [address] Low density lipoprotein (LDL ) cholesterol measurementOrdered By: Fredis Moon on 03-07-2024 Cholesterol in LDL [Mass/Vol] -4 mg/dL Low 0-130 [facility] Lymphocytes Auto (Unsp spec) [#/Vol]Ordered By: Fredis Moon on 03-07-2024 Lymphocytes (Bld) [#/Vol] 1.25 10*3/uL 0.83-4.51 [facility] Lymphocytes/100 WBC Auto (Un sp spec)Ordered By: Fredis Moon on 03-07-2024 Lymphocytes/100 WBC (Bld) 17.5 % Low 19-41 [facility] MCV (mean corpuscular volume ) determinationOrdered By: Fredis Moon on 03-07-2024 MCV (RBC) [Entitic vol] 86.0 fL 80-94 [facility] Mean corpuscular hemoglobin (MCH) determinationOrdered By: Fredis Moon 03-07-2024 MCH (RBC) [Entitic mass] 27.5 pg 27.0-32.0 [facility] Mean corpuscular hemoglobin concentration (MCHC) determinationOrdered By: Fredis Moon 03-07-2024 MCHC (RBC) [Mass/Vol] 32.0 g/dL 32-36 [facility] Mean platelet volume determi nationOrdered By: Fredis Moon 03-07-2024 Platelet mean volume (Bld) [Entitic vol] 9.2 fL 6.2-12.0 [facility] Monocyte percentageOrdered B y: Fredis Moon on 03-07-2024 Monocytes/100 WBC (Bld) 12.5 % High 0-10 [facility] Neutrophil percentageOrdered By: Fredis Moon on 03-07-2024 Neutrophils/100 WBC (Bld) 66.8 % 47-70 [facility] Nucleated red blood cell per centageOrdered By: Fredis Moon on 03-07-2024 Nucleated RBC/100 WBC (Bld) [Ratio] 0 % 0-5 [facility] Platelet countOrdered By: Mir Moon on 03-07-2024 Platelets (Bld) [#/Vol] 198 10*3/uL 150-450 [facility] Potassium measurementOrdered By: Fredis Moon on 03-07-2024 Potassium [Moles/Vol] 4.9 mmol/L 3.5-5.1 [facility] RBC Auto (Bld) [#/Vol]Ordere d By: Fredis Moon on 03-07-2024 RBC (Bld) [#/Vol] 4.72 10*6/uL 4.6-6.2 [facility] Serum anion gap measurementO rdered By: Fredis Moon on 03-07-2024 Anion gap [Moles/Vol] 5 mmol/L 5-15 [facility] Serum globulin measurementOr dered By: Fredis Moon on 03-07-2024 Globulin (S) [Mass/Vol] 3.6 g/dL 2.2-4.2 [facility] Serum or plasma alanine hector otransferase (ALT) measurementOrdered By: Fredis Moon on 03-07-2024 ALT [Catalytic activity/Vol] 18 U/L 16-61 [facility] Serum or plasma albumin mt urement (mass/volume)Ordered By: Fredis Moon 03-07-2024 Albumin [Mass/Vol] 3.3 g/dL 3.2-5.0 [facility] Serum or plasma alkaline kristyn sphatase measurementOrdered By: Fredis Moon 03-07-2024 ALP [Catalytic activity/Vol] 103 U/L 45-117 [facility] Serum or plasma calcium mt urement (mass/volume)Ordered By: Fredis Moon on 03-07-2024 Calcium [Mass/Vol] 8.8 mg/dL 8.5-10.1 [facility] Serum or plasma cholesterol measurement (mass/volume)Ordered By: Fredis Moon on 03-07-2024 Cholesterol [Mass/Vol] 113 mg/dL <200 [facility] Comment on above: <200 mg/dL Desirable 200-240 mg/dL Borderline >240 mg/dL High Risk Serum or plasma creatinine m easurement (mass/volume)Ordered By: Fredis Moon on 03-07-2024 Creatinine [Mass/Vol] 1.00 mg/dL 0.70-1.30 [facility] Comment on above: The validity of the calculated GFR & GFRAA in patients over 70 years has not been determined. Clinical correlation is essential. Serum or plasma urea nitroge n measurement (mass/volume)Ordered By: Fredis Moon on 03-07-2024 Urea nitrogen [Mass/Vol] 25 mg/dL High 7-18 [facility] Sodium levelOrdered By: Fredis Moon on 03-07-2024 Sodium [Moles/Vol] 142 mmol/L 136-145 [facility] TSH QnOrdered By: Fredis Moon o n 03-07-2024 Thyroid Stimulating Hormone (TSH) 3.430 uIU/mL 0.358-3.740 [facility] Testosterone Free [Mass/Vol] Ordered By: Fredis Moon on 03-07-2024 Free Testosterone 1.1 pg/mL Low 6.6-18.1 [facility] Comment on above: Performed at: [address] [id number] Director: Lucas Sorto MD, Phone: [phone] Thyroid Stim Hormone (TSH)on 03-07-2024 TSH 3.430 uIU/mL Normal 0.358-3.740 [facility] Comment on above: Performed By: #### L 500.4050, L501.9520, L501.9985, L100.0100, L3400.4800, L500.4100, L506.1000 ####[facility] [address] [place], [place], [phone] Total proteinOrdered By: Fredis Moon on 03-07-2024 Protein [Mass/Vol] 6.9 g/dL 6.4-8.2 [facility] Triglycerides measurementOrd ered By: Fredis Moon on 03-07-2024 Triglyceride [Mass/Vol] 362 mg/dL High <199 [facility] Comment on above: The drugs N-Acetylcy steine and Metamizole may falsely depress this assay.Serum Triglycerides Reference Interval Normal <150 mg/dL Borderline high 150 - 199 mg/dL High 200 - 499 mg/dL Very High > or = 500 mg/dL Very low density lipoprotein (VLDL) cholesterol measurementOrdered By: Fredis Moon on 03-07-2024 VLDL Cholesterol 72 mg/dL High 5-40 [facility] Vitamin D,25 Hydroxyon 03-07 Vitamin D 25-OH 40.2 ng/mL Normal [facility] Comment on above: Order Comment: ADD O N BOTH RED AND SST IN LAB Result Comment: Katie min D 25(OH) Status Range Deficiency <20 ng/mL (50nmol/L) Insufficiency 20 - 30 ng/mL (50 - 75 nmol/L) Sufficiency 30 - 100 ng/mL (75 - 250 nmol/L) Toxicity >100 ng/mL (>250 nmol/L) Performed By: #### L 500.4050, L501.9520, L501.9985, L100.0100, L3400.4800, L500.4100, L506.1000 ####[facility] [address] [place], [place], [phone] White blood cell (WBC) count Ordered By: Fredis Moon on 03-07-2024 WBC (Bld) [#/Vol] 7.1 10*3/uL 4.4-11.0 [facility] PSA,Total- Diagnosticon 11-2 PSA, DIAGNOSTIC < 0.01 Normal 0.0-4.0 [facility] Comment on above: Result Comment: This test was performed using the TPSA assay method for theDimedstar georgetown university hospitalsion chemistry system. Values obtained with differentassay methods cannot be used interchangably.When changing PSA assays in the course of monitoring apatient, additional sequential testing should be carriedout to confirm baseline values. Performed By: #### L 501.9940 ####[facility] [address] [place], [place], [phone] Absolute lymphocyte countOrd ered By: Fredis Moon on 06-01-2023 Lymphocytes Auto (Unsp spec) [#/Vol] 1.29 10*3/uL 0.83-4.51 [facility] Automated lymphocyte count a s percentage of total leukocytesOrdered By: Fredis Moon on 06-01-2023 Lymphocytes/100 WBC Auto (Unsp spec) 17.4 % 19-41 [facility] Basophil percentageOrdered B y: Fredis Moon on 06-01-2023 Basophils/100 WBC (Bld) 0.8 % 0-1 [facility] Bilirubin [Mass/Vol] 0.50 mg/dL 0.20-1.00 [facility] Comment on above: For patients on eltr ombopag therapy, use of Dimension [place] TBIL is not recommended. Chloride [Moles/Vol] 108 mmol/L 98-107 [facility] Cholesterol [Mass/Vol] 112 mg/dL <200 [facility] Comment on above: <200 mg/dL Desirable 200-240 mg/dL Borderline >240 mg/dL High Risk Eosinophils/100 WBC (Bld) 1.3 % 0-5 [facility] Glucose [Mass/Vol] 121 mg/dL 74-106 [facility] Comment on above: Fasting Glucose resu lt from 100 to 125 mg/dL suggests IMPAIRED HOMEOSTASIS per A.D.A. criteria. Hemoglobin (Bld) [Mass/Vol] 13.4 g/dL 13.0-16.5 [facility] Monocytes/100 WBC (Bld) 12.7 % 0-10 [facility] Neutrophils (Bld) [#/Vol] 5.0 10*3/uL 2.0-7.7 [facility] Neutrophils/100 WBC (Bld) 67.0 % 47-70 [facility] Potassium [Moles/Vol] 4.4 mmol/L 3.5-5.1 [facility] Protein [Mass/Vol] 6.8 g/dL 6.4-8.2 [facility] Sodium [Moles/Vol] 140 mmol/L 136-145 [facility] Testosterone [Mass/Vol] 34.50 ng/dL [facility] Comment on above: CENTRAL 90% REFERENC E RANGES MALE AGE <50 197.44 - 669.58 ng/dL MALE AGE > or = 50 187.72 - 684.19 ng/dL FEMALE AGE <50 8.38 - 35.01 ng/dL FEMALE AGE > or = 50 <7.00 - 35.92 ng/dL Effective as of 09/17/20 Triglyceride [Mass/Vol] 322 mg/dL <199 [facility] Comment on above: The drugs N-Acetylcy steine and Metamizole may falsely depress this assay.Serum Triglycerides Reference Interval Normal <150 mg/dL Borderline high 150 - 199 mg/dL High 200 - 499 mg/dL Very High > or = 500 mg/dL WBC (Bld) [#/Vol] 7.4 10*3/uL 4.4-11.0 [facility] Determination of erythrocyte mean corpuscular volume (MCV)Ordered By: Fredis Moon on 06-01-2023 MCV (RBC) [Entitic vol] 85.9 fL 80-94 [facility] Erythrocyte distribution wid th ratioOrdered By: [facility] 06-01-2023 Erythrocyte distribution width (RBC) [Ratio] 14.3 % 11.6-14.6 [facility] Erythrocyte distribution wid th standard deviationOrdered By: [facility] on 06-01-2023 Erythrocyte distribution width (RBC) [Entitic vol] 44.3 fL 35.1-43.9 [facility] Hematocrit Auto (Bld) [Volum e fraction]Ordered By: [facility] on 06-01-2023 Hematocrit (Bld) [Volume fraction] 41.4 % 40-54 [facility] Immature granulocytes/100 WB C Auto (Bld)Ordered By: [facility] 06-01-2023 Immature granulocytes/100 WBC (Bld) 0.800 % 0.0-0.9 [facility] Comment on above: IG% - Immature Granu locytes (promyelocytes, myelocytes and metamyelocytes) > 1% indicates that a LEFT SHIFT is Present. Laboratory - Chemistry and C hemistry - challengeOrdered By: [facility] on 06-01-2023 Albumin/Globulin [Mass ratio] 1.0 {ratio} 0.9-2.4 [facility] ALP [Catalytic activity/Vol] 88 U/L 45-117 [facility] ALT [Catalytic activity/Vol] 18 U/L 16-61 [facility] Cholesterol in HDL [Mass/Vol] 45 mg/dL >40 [facility] Comment on above: The drugs N-Acetylcy steine and Metamizole may falsely depress this assay. Reference Range HDL <40 mg/dL Low HDL Cholesterol HDL >or= 60 mg/dL High HDL Cholesterol Cholesterol in LDL [Mass/Vol] 3 mg/dL 0-130 [facility] CO2 [Moles/Vol] 24.0 mmol/L 21.0-32.0 [facility] Globulin (S) [Mass/Vol] 3.4 g/dL 2.2-4.2 [facility] Urea nitrogen/Creatinine [Mass ratio] 24.8 mg/mg 10-20 [facility] Laboratory - Hematology and Cell countsOrdered By: Fredis Moon on 06-01-2023 MCH (RBC) [Entitic mass] 27.8 pg 27.0-32.0 [facility] MCHC (RBC) [Mass/Vol] 32.4 g/dL 32-36 [facility] Nucleated RBC/100 WBC (Bld) [Ratio] 0 % 0-5 [facility] Platelet mean volume (Bld) [Entitic vol] 9.3 fL 6.2-12.0 [facility] Platelets (Bld) [#/Vol] 223 10*3/uL 150-450 [facility] No Panel InformationOrdered By: Fredis Moon on 06-01-2023 Estimated GFR (MDRD) Amer 84 mL/min >60 [facility] Comment on above: GFR Calc Estimated GFR (MDRD) Non-Af Amer 69 mL/min >60 [facility] Comment on above: Non- GFR Calc Vitamin D 25-Hydroxy 71.7 ng/mL [facility] Comment on above: Vitamin D 25(OH) Sta tus Range Deficiency <20 ng/mL (50nmol/L) Insufficiency 20 - 30 ng/mL (50 - 75 nmol/L) Sufficiency 30 - 100 ng/mL (75 - 250 nmol/L) Toxicity >100 ng/mL (>250 nmol/L) VLDL Cholesterol 64 mg/dL 5-40 [facility] RBC Auto (Bld) [#/Vol]Ordere d By: Fredis Moon on 06-01-2023 RBC (Bld) [#/Vol] 4.82 10*6/uL 4.6-6.2 [facility] Serum or plasma calcium mt urement (mass/volume)Ordered By: Fredis Moon on 06-01-2023 Calcium [Mass/Vol] 9.0 mg/dL 8.5-10.1 [facility] Serum or plasma creatinine m easurement (mass/volume)Ordered By: Fredis Moon on 06-01-2023 Creatinine [Mass/Vol] 1.09 mg/dL 0.70-1.30 [facility] Comment on above: The validity of the calculated GFR & GFRAA in patients over 70 years has not been determined. Clinical correlation is essential. Serum or plasma thyroid stim ulating hormone (TSH) measurement (units/volume)Ordered By: Fredis Moon on 06-01-2023 TSH Qn 2.51 uIU/mL 0.358-3.74 [facility] Serum or plasma urea nitroge n measurement (mass/volume)Ordered By: Fredis Moon on 06-01-2023 Urea nitrogen [Mass/Vol] 27 mg/dL 7-18 [facility] Thin prep Papanicolaou smear with manual screeningOrdered By: Fredis Moon on 06-01-2023 Thin prep Papanicolaou smear with manual screening 3.4 g/dL 3.2-5.0 [facility] Thin prep Papanicolaou smear with manual screening 15 U/L 15-37 [facility] Thin prep Papanicolaou smear with manual screening 8 5-15 [facility] Whole blood hemoglobin A1c/t otal hemoglobin ratio (mass fraction)Ordered By: Fredis Moon on 06-01-2023 HbA1c (Bld) [Mass fraction] 7.6 % 3.8-5.6 [facility] Comment on above: Normal < 5.7 % Predi abetic 5.7 - 6.4 % Diabetic >or= 6.5 % Please note range changes. Basophil percentageOrdered B y: Mi Hernandez on 04-05-2023 Chloride [Moles/Vol] 107 mmol/L 98-107 [facility] Glucose [Mass/Vol] 200 mg/dL 74-106 [facility] Comment on above: Glucose result great er than or equal to 200 mg/dLsuggests DIABETES MELLITUS per A.D.A. criteria. Potassium [Moles/Vol] 4.4 mmol/L 3.5-5.1 [facility] Sodium [Moles/Vol] 142 mmol/L 136-145 [facility] Laboratory - Chemistry and C hemistry - challengeOrdered By: Mi Hernandez on 04-05-2023 CO2 [Moles/Vol] 26.0 mmol/L 21.0-32.0 [facility] Natriuretic peptide B (Bld) [Mass/Vol] 14.8 pg/mL 0-100 [facility] Urea nitrogen/Creatinine [Mass ratio] 24.1 mg/mg 10-20 [facility] No Panel InformationOrdered By: Mi Hernandez on 04-05-2023 Estimated GFR (MDRD) Amer 81 mL/min >60 [facility] Comment on above: GFR Calc Estimated GFR (MDRD) Non-Af Amer 67 mL/min >60 [facility] Comment on above: Non- GFR Calc Serum or plasma calcium mt urement (mass/volume)Ordered By: Mi Hernandez on 04-05-2023 Calcium [Mass/Vol] 9.3 mg/dL 8.5-10.1 [facility] Serum or plasma creatinine m easurement (mass/volume)Ordered By: Mi Hernandez on 04-05-2023 Creatinine [Mass/Vol] 1.12 mg/dL 0.70-1.30 [facility] Comment on above: The validity of the calculated GFR & GFRAA in patients over 70 years has not been determined. Clinical correlation is essential. Serum or plasma urea nitroge n measurement (mass/volume)Ordered By: Mi Hernandez on 04-05-2023 Urea nitrogen [Mass/Vol] 27 mg/dL 7-18 [facility] Thin prep Papanicolaou smear with manual screeningOrdered By: Mi Hernadnez on 04-05-2023 Thin prep Papanicolaou smear with manual screening 9 5-15 [facility] Absolute lymphocyte countOrd ered By: Fredis Moon on 03-02-2023 Lymphocytes Auto (Unsp spec) [#/Vol] 1.26 10*3/uL 0.83-4.51 [facility] Basophil percentageOrdered B y: Fredis Moon on 03-02-2023 Basophils/100 WBC (Bld) 0.9 % 0-1 [facility] Bilirubin [Mass/Vol] 0.60 mg/dL 0.20-1.00 [facility] Comment on above: For patients on eltr ombopag therapy, use of Dimension [place] TBIL is not recommended. Chloride [Moles/Vol] 106 mmol/L 98-107 [facility] Cholesterol [Mass/Vol] 119 mg/dL <200 [facility] Comment on above: <200 mg/dL Desirable 200-240 mg/dL Borderline >240 mg/dL High Risk Eosinophils/100 WBC (Bld) 2.9 % 0-5 [facility] Glucose [Mass/Vol] 129 mg/dL 74-106 [facility] Comment on above: Fasting Glucose resu lt greater than or equal to 126 mg/dL suggests DIABETES MELLITUS per A.D.A. criteria. Neutrophils (Bld) [#/Vol] 4.1 10*3/uL 2.0-7.7 [facility] Neutrophils/100 WBC (Bld) 63.1 % 47-70 [facility] Potassium [Moles/Vol] 4.5 mmol/L 3.5-5.1 [facility] Protein [Mass/Vol] 6.8 g/dL 6.4-8.2 [facility] Sodium [Moles/Vol] 139 mmol/L 136-145 [facility] Testosterone [Mass/Vol] 35.01 ng/dL [facility] Comment on above: CENTRAL 90% REFERENC E RANGES MALE AGE <50 197.44 - 669.58 ng/dL MALE AGE > or = 50 187.72 - 684.19 ng/dL FEMALE AGE <50 8.38 - 35.01 ng/dL FEMALE AGE > or = 50 <7.00 - 35.92 ng/dL Effective as of 09/17/20 Triglyceride [Mass/Vol] 337 mg/dL <199 [facility] Comment on above: The drugs N-Acetylcy steine and Metamizole may falsely depress this assay.Serum Triglycerides Reference Interval Normal <150 mg/dL Borderline high 150 - 199 mg/dL High 200 - 499 mg/dL Very High > or = 500 mg/dL WBC (Bld) [#/Vol] 6.5 10*3/uL 4.4-11.0 [facility] Blood erythrocytes count (nu mber/volume)Ordered By: Fredis Moon on 03-02-2023 RBC (Bld) [#/Vol] 4.80 10*6/uL 4.6-6.2 [facility] Blood hemoglobin measurement (mass/volume)Ordered By: [facility] on 03-02-2023 Hemoglobin (Bld) [Mass/Vol] 13.3 g/dL 13.0-16.5 [facility] Blood lymphocytes/100 leukoc ytesOrdered By: [facility] on 03-02-2023 Lymphocytes/100 WBC (Bld) 19.5 % 19-41 [facility] Blood monocytes/100 leukocyt esOrdered By: [facility] on 03-02-2023 Monocytes/100 WBC (Bld) 12.5 % 0-10 [facility] Blood platelet mean volumeOr dered By: [facility] on 03-02-2023 Platelet mean volume (Bld) [Entitic vol] 9.3 fL 6.2-12.0 [facility] Determination of erythrocyte mean corpuscular volume (MCV)Ordered By: [facility] on 03-02-2023 MCV (RBC) [Entitic vol] 86.0 fL 80-94 [facility] Hematocrit Auto (Bld) [Volum e fraction]Ordered By: [facility] on 03-02-2023 Hematocrit (Bld) [Volume fraction] 41.3 % 40-54 [facility] Laboratory - Chemistry and C hemistry - challengeOrdered By: [facility] on 03-02-2023 ALP [Catalytic activity/Vol] 99 U/L 45-117 [facility] ALT [Catalytic activity/Vol] 10 U/L 16-61 [facility] CO2 [Moles/Vol] 26.0 mmol/L 21.0-32.0 [facility] Globulin (S) [Mass/Vol] 3.4 g/dL 2.2-4.2 [facility] Urea nitrogen/Creatinine [Mass ratio] 23.4 mg/mg 10-20 [facility] Laboratory - Hematology and Cell countsOrdered By: [facility] on 03-02-2023 Erythrocyte distribution width (RBC) [Entitic vol] 44.8 fL 35.1-43.9 [facility] Erythrocyte distribution width (RBC) [Ratio] 14.3 % 11.6-14.6 [facility] Immature granulocytes/100 WBC (Bld) 1.100 % 0.0-0.9 [facility] Comment on above: IG% - Immature Granu locytes (promyelocytes, myelocytes and metamyelocytes) > 1% indicates that a LEFT SHIFT is Present. MCH (RBC) [Entitic mass] 27.7 pg 27.0-32.0 [facility] Nucleated RBC/100 WBC (Bld) [Ratio] 0 % 0-5 [facility] MCHC Auto (RBC) [Mass/Vol]Or dered By: Fredis Moon on 03-02-2023 MCHC (RBC) [Mass/Vol] 32.2 g/dL 32-36 [facility] No Panel InformationOrdered By: Fredis Moon on 03-02-2023 Estimated GFR (MDRD) Amer 85 mL/min >60 [facility] Comment on above: GFR Calc Estimated GFR (MDRD) Non-Af Amer 71 mL/min >60 [facility] Comment on above: Non- GFR Calc Thyroid Stimulating Hormone (TSH) 2.27 uIU/mL 0.358-3.74 [facility] Vitamin D 25-Hydroxy 55.0 ng/mL [facility] Comment on above: Vitamin D 25(OH) Sta tus Range Deficiency <20 ng/mL (50nmol/L) Insufficiency 20 - 30 ng/mL (50 - 75 nmol/L) Sufficiency 30 - 100 ng/mL (75 - 250 nmol/L) Toxicity >100 ng/mL (>250 nmol/L) Platelets bldOrdered By: Fredis Moon on 03-02-2023 Platelets (Bld) [#/Vol] 206 10*3/uL 150-450 [facility] Serum or plasma albumin mt urement (mass/volume)Ordered By: Fredis Moon on 03-02-2023 Albumin [Mass/Vol] 3.4 g/dL 3.2-5.0 [facility] Serum or plasma albumin/glob ulin mass ratioOrdered By: Fredis Moon on 03-02-2023 Albumin/Globulin [Mass ratio] 1.0 {ratio} 0.9-2.4 [facility] Serum or plasma calcium mt urement (mass/volume)Ordered By: Fredis Moon on 03-02-2023 Calcium [Mass/Vol] 8.7 mg/dL 8.5-10.1 [facility] Serum or plasma cholesterol in HDL measurement (mass/volume)Ordered By: Fredis Moon on 03-02-2023 Cholesterol in HDL [Mass/Vol] 40 mg/dL >40 [facility] Comment on above: The drugs N-Acetylcy steine and Metamizole may falsely depress this assay. Reference Range HDL <40 mg/dL Low HDL Cholesterol HDL >or= 60 mg/dL High HDL Cholesterol Serum or plasma cholesterol in VLDL measurement (mass/volume)Ordered By: Fredis Moon on 03-02-2023 Cholesterol in VLDL [Mass/Vol] 67 mg/dL 5-40 [facility] Serum or plasma creatinine m easurement (mass/volume)Ordered By: Fredis Moon on 03-02-2023 Creatinine [Mass/Vol] 1.07 mg/dL 0.70-1.30 [facility] Comment on above: The validity of the calculated GFR & GFRAA in patients over 70 years has not been determined. Clinical correlation is essential. Serum or plasma low density lipoprotein (LDL) cholesterol measurement (mass/volume)Ordered By: Fredis Moon on 03-02-2023 Cholesterol in LDL [Mass/Vol] 12 mg/dL 0-130 [facility] Serum or plasma urea nitroge n measurement (mass/volume)Ordered By: Fredis Moon on 03-02-2023 Urea nitrogen [Mass/Vol] 25 mg/dL 7-18 [facility] Thin prep Papanicolaou smear with manual screeningOrdered By: Fredis Moon on 03-02-2023 Thin prep Papanicolaou smear with manual screening 18 U/L 15-37 [facility] Thin prep Papanicolaou smear with manual screening 7 5-15 [facility] Whole blood hemoglobin A1c/t otal hemoglobin ratio (mass fraction)Ordered By: Fredis Moon on 03-02-2023 HbA1c (Bld) [Mass fraction] 7.5 % 3.8-5.6 [facility] Comment on above: Normal < 5.7 % Predi abetic 5.7 - 6.4 % Diabetic >or= 6.5 % Please note range changes. No Panel InformationOrdered By: Yovanny Dempsey on 01-15-2023 Prostate Specific Antigen Total < 0.01 ng/mL 0.0-4.0 [facility] Comment on above: This test was perfor med using the TPSA assay method for theDimension chemistry system. Values obtained with differentassay methods cannot be used interchangably.When changing PSA assays in the course of monitoring apatient, additional sequential testing should be carriedout to confirm baseline values. Glucose Glucometer (BldC) [M ass/Vol]Ordered By: Pamlea Cramer on 12-30-2022 Glucose [Mass/Vol] 170 mg/dL 74-106 [facility] Comment on above: MANAGEMENT OF PATIEN T CARE PER NURSING PROTOCOL Absolute lymphocyte countOrd ered By: Fredis Moon on 11-30-2022 Lymphocytes Auto (Unsp spec) [#/Vol] 1.40 10*3/uL 0.83-4.51 [facility] Basophil percentageOrdered B y: Fredis Moon on 11-30-2022 Basophils/100 WBC (Bld) 0.7 % 0-1 [facility] Bilirubin [Mass/Vol] 0.30 mg/dL 0.20-1.00 [facility] Comment on above: For patients on eltr ombopag therapy, use of Dimension [place] TBIL is not recommended. Chloride [Moles/Vol] 107 mmol/L 98-107 [facility] Cholesterol [Mass/Vol] 122 mg/dL <200 [facility] Comment on above: <200 mg/dL Desirable 200-240 mg/dL Borderline >240 mg/dL High Risk Eosinophils/100 WBC (Bld) 1.4 % 0-5 [facility] Glucose [Mass/Vol] 112 mg/dL 74-106 [facility] Comment on above: Fasting Glucose resu lt from 100 to 125 mg/dL suggests IMPAIRED HOMEOSTASIS per A.D.A. criteria. Neutrophils (Bld) [#/Vol] 5.9 10*3/uL 2.0-7.7 [facility] Neutrophils/100 WBC (Bld) 70.0 % 47-70 [facility] Potassium [Moles/Vol] 4.7 mmol/L 3.5-5.1 [facility] Protein [Mass/Vol] 6.8 g/dL 6.4-8.2 [facility] Sodium [Moles/Vol] 143 mmol/L 136-145 [facility] Testosterone [Mass/Vol] 39.15 ng/dL [facility] Comment on above: CENTRAL 90% REFERENC E RANGES MALE AGE <50 197.44 - 669.58 ng/dL MALE AGE > or = 50 187.72 - 684.19 ng/dL FEMALE AGE <50 8.38 - 35.01 ng/dL FEMALE AGE > or = 50 <7.00 - 35.92 ng/dL Effective as of 09/17/20 Triglyceride [Mass/Vol] 419 mg/dL <199 [facility] Comment on above: The drugs N-Acetylcy steine and Metamizole may falsely depress this assay. TRIGLYCERIDE IS GREATER THAN 400 mg/dL. LDL RESULT IS INVALID AND WILL NOT BE REPORTED.Serum Triglycerides Reference Interval Normal <150 mg/dL Borderline high 150 - 199 mg/dL High 200 - 499 mg/dL Very High > or = 500 mg/dL WBC (Bld) [#/Vol] 8.4 10*3/uL 4.4-11.0 [facility] Blood erythrocytes count (nu mber/volume)Ordered By: Fredis Moon on 11-30-2022 RBC (Bld) [#/Vol] 4.67 10*6/uL 4.6-6.2 [facility] Blood hemoglobin measurement (mass/volume)Ordered By: Fredis Moon on 11-30-2022 Hemoglobin (Bld) [Mass/Vol] 13.2 g/dL 13.0-16.5 [facility] Blood lymphocytes/100 leukoc ytesOrdered By: Fredis Moon on 11-30-2022 Lymphocytes/100 WBC (Bld) 16.6 % 19-41 [facility] Blood monocytes/100 leukocyt esOrdered By: Fredis Moon on 11-30-2022 Monocytes/100 WBC (Bld) 10.6 % 0-10 [facility] Blood platelet mean volumeOr dered By: Fredis Moon on 11-30-2022 Platelet mean volume (Bld) [Entitic vol] 9.0 fL 6.2-12.0 [facility] Determination of erythrocyte mean corpuscular volume (MCV)Ordered By: Fredis Moon on 11-30-2022 MCV (RBC) [Entitic vol] 88.7 fL 80-94 [facility] Hematocrit Auto (Bld) [Volum e fraction]Ordered By: Fredis Moon on 11-30-2022 Hematocrit (Bld) [Volume fraction] 41.4 % 40-54 [facility] - Chemistry and C hemistry - challengeOrdered By: Fredis Moon on 11-30-2022 ALP [Catalytic activity/Vol] 102 U/L 45-117 [facility] ALT [Catalytic activity/Vol] 11 U/L 16-61 [facility] CO2 [Moles/Vol] 28.0 mmol/L 21.0-32.0 [facility] Globulin (S) [Mass/Vol] 3.5 g/dL 2.2-4.2 [facility] Urea nitrogen/Creatinine [Mass ratio] 22.9 mg/mg 10-20 [facility] - Hematology and Cell countsOrdered By: Fredis Moon on 11-30-2022 Erythrocyte distribution width (RBC) [Entitic vol] 46.8 fL 35.1-43.9 [facility] Erythrocyte distribution width (RBC) [Ratio] 14.6 % 11.6-14.6 [facility] Immature granulocytes/100 WBC (Bld) 0.700 % 0.0-0.9 [facility] Comment on above: IG% - Immature Granu locytes (promyelocytes, myelocytes and metamyelocytes) > 1% indicates that a LEFT SHIFT is Present. MCH (RBC) [Entitic mass] 28.3 pg 27.0-32.0 [facility] Nucleated RBC/100 WBC (Bld) [Ratio] 0 % 0-5 [facility] MCHC Auto (RBC) [Mass/Vol]Or dered By: Fredis Moon on 11-30-2022 MCHC (RBC) [Mass/Vol] 31.9 g/dL 32-36 [facility] No Panel InformationOrdered By: Fredis Moon on 11-30-2022 Estimated GFR (MDRD) Amer 84 mL/min >60 [facility] Comment on above: GFR Calc Estimated GFR (MDRD) Non-Af Amer 69 mL/min >60 [facility] Comment on above: Non- GFR Calc Thyroid Stimulating Hormone (TSH) 1.90 uIU/mL 0.358-3.74 [facility] Vitamin D 25-Hydroxy 47.6 ng/mL [facility] Comment on above: Vitamin D 25(OH) Sta tus Range Deficiency <20 ng/mL (50nmol/L) Insufficiency 20 - 30 ng/mL (50 - 75 nmol/L) Sufficiency 30 - 100 ng/mL (75 - 250 nmol/L) Toxicity >100 ng/mL (>250 nmol/L) Platelets bldOrdered By: Fredis Moon on 11-30-2022 Platelets (Bld) [#/Vol] 203 10*3/uL 150-450 [facility] Serum or plasma albumin mt urement (mass/volume)Ordered By: Fredis Moon on 11-30-2022 Albumin [Mass/Vol] 3.3 g/dL 3.2-5.0 [facility] Serum or plasma albumin/glob ulin mass ratioOrdered By: Fredis Moon on 11-30-2022 Albumin/Globulin [Mass ratio] 0.9 {ratio} 0.9-2.4 [facility] Serum or plasma calcium mt urement (mass/volume)Ordered By: Fredis Moon 11-30-2022 Calcium [Mass/Vol] 8.8 mg/dL 8.5-10.1 [facility] Serum or plasma cholesterol in HDL measurement (mass/volume)Ordered By: Fredis Moon 11-30-2022 Cholesterol in HDL [Mass/Vol] 39 mg/dL >40 [facility] Comment on above: The drugs N-Acetylcy steine and Metamizole may falsely depress this assay. Reference Range HDL <40 mg/dL Low HDL Cholesterol HDL >or= 60 mg/dL High HDL Cholesterol Serum or plasma cholesterol in VLDL measurement (mass/volume)Ordered By: Fredis Moon on 11-30-2022 Cholesterol in VLDL [Mass/Vol] TNP [facility] Comment on above: Test not performed Serum or plasma creatinine m easurement (mass/volume)Ordered By: Fredis Moon 11-30-2022 Creatinine [Mass/Vol] 1.09 mg/dL 0.70-1.30 [facility] Comment on above: The validity of the calculated GFR & GFRAA in patients over 70 years has not been determined. Clinical correlation is essential. Serum or plasma low density lipoprotein (LDL) cholesterol measurement (mass/volume)Ordered By: Fredis Moon 11-30-2022 Cholesterol in LDL [Mass/Vol] TNP [facility] Comment on above: Test not performed Serum or plasma urea nitroge n measurement (mass/volume)Ordered By: Fredis Moon on 11-30-2022 Urea nitrogen [Mass/Vol] 25 mg/dL 7-18 [facility] Thin prep Papanicolaou smear with manual screeningOrdered By: Fredis Moon on 11-30-2022 Thin prep Papanicolaou smear with manual screening 6 U/L 15-37 [facility] Thin prep Papanicolaou smear with manual screening 8 5-15 [facility] Whole blood hemoglobin A1c/t otal hemoglobin ratio (mass fraction)Ordered By: Fredis Moon on 11-30-2022 HbA1c (Bld) [Mass fraction] 7.2 % 3.8-5.6 [facility] Comment on above: Normal < 5.7 % Predi abetic 5.7 - 6.4 % Diabetic >or= 6.5 % Please note range changes. Absolute lymphocyte countOrd ered By: Fredis Moon on 08-27-2022 Lymphocytes Auto (Unsp spec) [#/Vol] 0.96 10*3/uL 0.83-4.51 [facility] Basophil percentageOrdered B y: Fredis Moon on 08-27-2022 Basophils/100 WBC (Bld) 0.9 % 0-1 [facility] Bilirubin [Mass/Vol] 0.40 mg/dL 0.20-1.00 [facility] Comment on above: For patients on eltr ombopag therapy, use of Dimension [place] TBIL is not recommended. Chloride [Moles/Vol] 107 mmol/L 98-107 [facility] Cholesterol [Mass/Vol] 119 mg/dL <200 [facility] Comment on above: <200 mg/dL Desirable 200-240 mg/dL Borderline >240 mg/dL High Risk Eosinophils/100 WBC (Bld) 1.8 % 0-5 [facility] Glucose [Mass/Vol] 163 mg/dL 74-106 [facility] Comment on above: Fasting Glucose resu lt greater than or equal to 126 mg/dL suggests DIABETES MELLITUS per A.D.A. criteria. Neutrophils (Bld) [#/Vol] 3.6 10*3/uL 2.0-7.7 [facility] Neutrophils/100 WBC (Bld) 66.9 % 47-70 [facility] Potassium [Moles/Vol] 4.1 mmol/L 3.5-5.1 [facility] Protein [Mass/Vol] 6.8 g/dL 6.4-8.2 [facility] Sodium [Moles/Vol] 139 mmol/L 136-145 [facility] Testosterone [Mass/Vol] 58.15 ng/dL [facility] Comment on above: CENTRAL 90% REFERENC E RANGES MALE AGE <50 197.44 - 669.58 ng/dL MALE AGE > or = 50 187.72 - 684.19 ng/dL FEMALE AGE <50 8.38 - 35.01 ng/dL FEMALE AGE > or = 50 <7.00 - 35.92 ng/dL Effective as of 09/17/20 Triglyceride [Mass/Vol] 199 mg/dL <199 [facility] Comment on above: The drugs N-Acetylcy steine and Metamizole may falsely depress this assay.Serum Triglycerides Reference Interval Normal <150 mg/dL Borderline high 150 - 199 mg/dL High 200 - 499 mg/dL Very High > or = 500 mg/dL WBC (Bld) [#/Vol] 5.5 10*3/uL 4.4-11.0 [facility] Blood erythrocytes count (nu mber/volume)Ordered By: Fredis Moon on 08-27-2022 RBC (Bld) [#/Vol] 4.65 10*6/uL 4.6-6.2 [facility] Blood hemoglobin measurement (mass/volume)Ordered By: Fredis Moon on 08-27-2022 Hemoglobin (Bld) [Mass/Vol] 13.5 g/dL 13.0-16.5 [facility] Blood lymphocytes/100 leukoc ytesOrdered By: Fredis Moon on 08-27-2022 Lymphocytes/100 WBC (Bld) 17.6 % 19-41 [facility] Blood monocytes/100 leukocyt esOrdered By: Fredis Moon on 08-27-2022 Monocytes/100 WBC (Bld) 11.7 % 0-10 [facility] Blood platelet mean volumeOr dered By: Fredis Moon on 08-27-2022 Platelet mean volume (Bld) [Entitic vol] 9.4 fL 6.2-12.0 [facility] Determination of erythrocyte mean corpuscular volume (MCV)Ordered By: Fredis Moon on 08-27-2022 MCV (RBC) [Entitic vol] 86.2 fL 80-94 [facility] Hematocrit Auto (Bld) [Volum e fraction]Ordered By: Fredis Moon on 08-27-2022 Hematocrit (Bld) [Volume fraction] 40.1 % 40-54 [facility] - Chemistry and C hemistry - challengeOrdered By: Fredis Moon on 08-27-2022 ALP [Catalytic activity/Vol] 95 U/L 45-117 [facility] ALT [Catalytic activity/Vol] 26 U/L 16-61 [facility] CO2 [Moles/Vol] 26.0 mmol/L 21.0-32.0 [facility] Globulin (S) [Mass/Vol] 3.4 g/dL 2.2-4.2 [facility] Urea nitrogen/Creatinine [Mass ratio] 25.5 mg/mg 10-20 [facility] - Hematology and Cell countsOrdered By: Fredis Moon on 08-27-2022 Erythrocyte distribution width (RBC) [Entitic vol] 43.4 fL 35.1-43.9 [facility] Erythrocyte distribution width (RBC) [Ratio] 14.0 % 11.6-14.6 [facility] Immature granulocytes/100 WBC (Bld) 1.100 % 0.0-0.9 [facility] Comment on above: IG% - Immature Granu locytes (promyelocytes, myelocytes and metamyelocytes) > 1% indicates that a LEFT SHIFT is Present. MCH (RBC) [Entitic mass] 29.0 pg 27.0-32.0 [facility] Nucleated RBC/100 WBC (Bld) [Ratio] 0 % 0-5 [facility] MCHC Auto (RBC) [Mass/Vol]Or dered By: Fredis Moon on 08-27-2022 MCHC (RBC) [Mass/Vol] 33.7 g/dL 32-36 [facility] No Panel InformationOrdered By: Fredis Moon on 08-27-2022 Estimated GFR (MDRD) Amer 94 mL/min >60 [facility] Comment on above: GFR Calc Estimated GFR (MDRD) Non-Af Amer 78 mL/min >60 [facility] Comment on above: Non- GFR Calc Thyroid Stimulating Hormone (TSH) 1.92 uIU/mL 0.358-3.74 [facility] Vitamin D 25-Hydroxy 62.6 ng/mL [facility] Comment on above: Vitamin D 25(OH) Sta tus Range Deficiency <20 ng/mL (50nmol/L) Insufficiency 20 - 30 ng/mL (50 - 75 nmol/L) Sufficiency 30 - 100 ng/mL (75 - 250 nmol/L) Toxicity >100 ng/mL (>250 nmol/L) Platelets bldOrdered By: Fredis Moon on 08-27-2022 Platelets (Bld) [#/Vol] 203 10*3/uL 150-450 [facility] Serum or plasma albumin mt urement (mass/volume)Ordered By: Fredis Moon on 08-27-2022 Albumin [Mass/Vol] 3.4 g/dL 3.2-5.0 [facility] Serum or plasma albumin/glob ulin mass ratioOrdered By: Fredis Moon on 08-27-2022 Albumin/Globulin [Mass ratio] 1.0 {ratio} 0.9-2.4 [facility] Serum or plasma calcium mt urement (mass/volume)Ordered By: Fredis Moon on 08-27-2022 Calcium [Mass/Vol] 8.6 mg/dL 8.5-10.1 [facility] Serum or plasma cholesterol in HDL measurement (mass/volume)Ordered By: Fredis Moon on 08-27-2022 Cholesterol in HDL [Mass/Vol] 39 mg/dL >40 [facility] Comment on above: The drugs N-Acetylcy steine and Metamizole may falsely depress this assay. Reference Range HDL <40 mg/dL Low HDL Cholesterol HDL >or= 60 mg/dL High HDL Cholesterol Serum or plasma cholesterol in VLDL measurement (mass/volume)Ordered By: Fredis Moon on 08-27-2022 Cholesterol in VLDL [Mass/Vol] 40 mg/dL 5-40 [facility] Serum or plasma creatinine m easurement (mass/volume)Ordered By: Fredis Moon on 08-27-2022 Creatinine [Mass/Vol] 0.98 mg/dL 0.70-1.30 [facility] Comment on above: The validity of the calculated GFR & GFRAA in patients over 70 years has not been determined. Clinical correlation is essential. Serum or plasma low density lipoprotein (LDL) cholesterol measurement (mass/volume)Ordered By: Fredis Moon on 08-27-2022 Cholesterol in LDL [Mass/Vol] 40 mg/dL 0-130 [facility] Serum or plasma urea nitroge n measurement (mass/volume)Ordered By: Fredis Moon on 08-27-2022 Urea nitrogen [Mass/Vol] 25 mg/dL 7-18 [facility] Thin prep Papanicolaou smear with manual screeningOrdered By: Fredis Moon on 08-27-2022 Thin prep Papanicolaou smear with manual screening 19 U/L 15-37 [facility] Thin prep Papanicolaou smear with manual screening 6 5-15 [facility] Whole blood hemoglobin A1c/t otal hemoglobin ratio (mass fraction)Ordered By: Fredis Moon on 08-27-2022 HbA1c (Bld) [Mass fraction] 7.0 % 3.8-5.6 [facility] Comment on above: Normal < 5.7 % Predi abetic 5.7 - 6.4 % Diabetic >or= 6.5 % Please note range changes. No Panel InformationOrdered By: Dr. Dempsey on 07-10-2022 Prostate Specific Antigen Total < 0.01 ng/mL 0.0-4.0 [facility] Comment on above: This test was perfor med using the TPSA assay method [facility] the[facility]. Values obtained with differentassay methods cannot be used interchangably.When changing PSA assays in the course of monitoring apatient, additional sequential testing should be carriedout to confirm baseline values. Absolute lymphocyte countOrd ered By: Dr. Moon on 04-30-2022 Lymphocytes Auto (Unsp spec) [#/Vol] 1.01 10*3/uL 0.83-4.51 [facility] Basophil percentageOrdered B y: Dr. Moon on 04-30-2022 Basophils/100 WBC (Bld) 0.9 % 0-1 [facility] Bilirubin [Mass/Vol] 0.40 mg/dL 0.20-1.00 [facility] Comment on above: For patients on eltr ombopag therapy, use of Dimension [place] TBIL is not recommended. Chloride [Moles/Vol] 103 mmol/L 98-107 [facility] Cholesterol [Mass/Vol] 213 mg/dL <200 [facility] Comment on above: <200 mg/dL Desirable 200-240 mg/dL Borderline >240 mg/dL High Risk Eosinophils/100 WBC (Bld) 1.9 % 0-5 [facility] Glucose [Mass/Vol] 129 mg/dL 74-106 [facility] Comment on above: Fasting Glucose resu lt greater than or equal to 126 mg/dL suggests DIABETES MELLITUS per A.D.A. criteria. Neutrophils (Bld) [#/Vol] 4.0 10*3/uL 2.0-7.7 [facility] Neutrophils/100 WBC (Bld) 67.6 % 47-70 [facility] Potassium [Moles/Vol] 4.4 mmol/L 3.5-5.1 [facility] Protein [Mass/Vol] 7.6 g/dL 6.4-8.2 [facility] Sodium [Moles/Vol] 138 mmol/L 136-145 [facility] Testosterone [Mass/Vol] 66.62 ng/dL [facility] Comment on above: CENTRAL 90% REFERENC E RANGES MALE AGE <50 197.44 - 669.58 ng/dL MALE AGE > or = 50 187.72 - 684.19 ng/dL FEMALE AGE <50 8.38 - 35.01 ng/dL FEMALE AGE > or = 50 <7.00 - 35.92 ng/dL Effective as of 09/17/20 Triglyceride [Mass/Vol] 352 mg/dL <199 [facility] Comment on above: The drugs N-Acetylcy steine and Metamizole may falsely depress this assay.Serum Triglycerides Reference Interval Normal <150 mg/dL Borderline high 150 - 199 mg/dL High 200 - 499 mg/dL Very High > or = 500 mg/dL WBC (Bld) [#/Vol] 5.9 10*3/uL 4.4-11.0 [facility] Blood erythrocytes count (nu mber/volume)Ordered By: Dr. Moon on 04-30-2022 RBC (Bld) [#/Vol] 5.19 10*6/uL 4.6-6.2 [facility] Blood hemoglobin measurement (mass/volume)Ordered By: Dr. Moon on 04-30-2022 Hemoglobin (Bld) [Mass/Vol] 14.4 g/dL 13.0-16.5 [facility] Blood lymphocytes/100 leukoc ytesOrdered By: Dr. Moon on 04-30-2022 Lymphocytes/100 WBC (Bld) 17.3 % 19-41 [facility] Blood monocytes/100 leukocyt esOrdered By: Dr. Moon on 04-30-2022 Monocytes/100 WBC (Bld) 10.6 % 0-10 [facility] Blood platelet mean volumeOr dered By: Dr. Moon on 04-30-2022 Platelet mean volume (Bld) [Entitic vol] 9.6 fL 6.2-12.0 [facility] Determination of erythrocyte mean corpuscular volume (MCV)Ordered By: Dr. Moon on 04-30-2022 MCV (RBC) [Entitic vol] 87.1 fL 80-94 [facility] Hematocrit Auto (Bld) [Volum e fraction]Ordered By: Dr. Moon on 04-30-2022 Hematocrit (Bld) [Volume fraction] 45.2 % 40-54 [facility] Laboratory - Chemistry and C hemistry - challengeOrdered By: Dr. Moon on 04-30-2022 ALP [Catalytic activity/Vol] 95 U/L 45-117 [facility] ALT [Catalytic activity/Vol] 10 U/L 16-61 [facility] CO2 [Moles/Vol] 25.0 mmol/L 21.0-32.0 [facility] Globulin (S) [Mass/Vol] 3.8 g/dL 2.2-4.2 [facility] Urea nitrogen/Creatinine [Mass ratio] 23.4 mg/mg 10-20 [facility] - Hematology and Cell countsOrdered By: Dr. Moon on 04-30-2022 Erythrocyte distribution width (RBC) [Entitic vol] 45.9 fL 35.1-43.9 [facility] Erythrocyte distribution width (RBC) [Ratio] 14.5 % 11.6-14.6 [facility] Immature granulocytes/100 WBC (Bld) 1.700 % 0.0-0.9 [facility] Comment on above: IG% - Immature Granu locytes (promyelocytes, myelocytes and metamyelocytes) > 1% indicates that a LEFT SHIFT is Present. MCH (RBC) [Entitic mass] 27.7 pg 27.0-32.0 [facility] Nucleated RBC/100 WBC (Bld) [Ratio] 0 % 0-5 [facility] MCHC Auto (RBC) [Mass/Vol]Or dered By: Dr. Moon on 04-30-2022 MCHC (RBC) [Mass/Vol] 31.9 g/dL 32-36 [facility] No Panel InformationOrdered By: Dr. Moon on 04-30-2022 Estimated GFR (MDRD) Amer 72 mL/min >60 [facility] Comment on above: GFR Calc Estimated GFR (MDRD) Non-Af Amer 60 mL/min >60 [facility] Comment on above: Non- GFR Calc Prostate Specific Antigen Screen 0.02 ng/mL 0.00-4.00 [facility] Comment on above: This test was perfor med using the TPSA assay method for the[employer] chemistry system. Values obtained with differentassay methods cannot be used interchangably.When changing PSA assays in the course of monitoring apatient, additional sequential testing should be carriedout to confirm baseline values. Thyroid Stimulating Hormone (TSH) 1.87 uIU/mL 0.358-3.74 [facility] Vitamin D 25-Hydroxy 47.6 ng/mL [facility] Comment on above: Vitamin D 25(OH) Sta tus Range Deficiency <20 ng/mL (50nmol/L) Insufficiency 20 - 30 ng/mL (50 - 75 nmol/L) Sufficiency 30 - 100 ng/mL (75 - 250 nmol/L) Toxicity >100 ng/mL (>250 nmol/L) Platelets bldOrdered By: Dr. Moon on 04-30-2022 Platelets (Bld) [#/Vol] 213 10*3/uL 150-450 [facility] Serum or plasma albumin mt urement (mass/volume)Ordered By: Dr. Moon on 04-30-2022 Albumin [Mass/Vol] 3.8 g/dL 3.2-5.0 [facility] Serum or plasma albumin/glob ulin mass ratioOrdered By: Dr. Moon on 04-30-2022 Albumin/Globulin [Mass ratio] 1.0 {ratio} 0.9-2.4 [facility] Serum or plasma calcium mt urement (mass/volume)Ordered By: Dr. Moon on 04-30-2022 Calcium [Mass/Vol] 9.6 mg/dL 8.5-10.1 [facility] Serum or plasma cholesterol in HDL measurement (mass/volume)Ordered By: Dr. Moon on 04-30-2022 Cholesterol in HDL [Mass/Vol] 46 mg/dL >40 [facility] Comment on above: The drugs N-Acetylcy steine and Metamizole may falsely depress this assay. Reference Range HDL <40 mg/dL Low HDL Cholesterol HDL >or= 60 mg/dL High HDL Cholesterol Serum or plasma cholesterol in VLDL measurement (mass/volume)Ordered By: Dr. Moon on 04-30-2022 Cholesterol in VLDL [Mass/Vol] 70 mg/dL 5-40 [facility] Serum or plasma creatinine m easurement (mass/volume)Ordered By: Dr. Moon on 04-30-2022 Creatinine [Mass/Vol] 1.24 mg/dL 0.70-1.30 [facility] Comment on above: The validity of the calculated GFR & GFRAA in patients over 70 years has not been determined. Clinical correlation is essential. Serum or plasma low density lipoprotein (LDL) cholesterol measurement (mass/volume)Ordered By: Dr. Moon on 04-30-2022 Cholesterol in LDL [Mass/Vol] 97 mg/dL 0-130 [facility] Serum or plasma urea nitroge n measurement (mass/volume)Ordered By: Dr. Moon on 04-30-2022 Urea nitrogen [Mass/Vol] 29 mg/dL 7-18 [facility] Thin prep Papanicolaou smear with manual screeningOrdered By: Dr. Moon on 04-30-2022 Thin prep Papanicolaou smear with manual screening 16 U/L 15-37 [facility] Thin prep Papanicolaou smear with manual screening 10 5-15 [facility] Whole blood hemoglobin A1c/t otal hemoglobin ratio (mass fraction)Ordered By: Dr. Moon on 04-30-2022 HbA1c (Bld) [Mass fraction] 7.1 % 3.8-5.6 [facility] Comment on above: Normal < 5.7 % Predi abetic 5.7 - 6.4 % Diabetic >or= 6.5 % Please note range changes. Absolute lymphocyte countOrd ered By: Dr. Moon on 01-29-2022 Lymphocytes Auto (Unsp spec) [#/Vol] 1.15 10*3/uL 0.83-4.51 [facility] Basophil percentageOrdered B y: Dr. Moon on 01-29-2022 Basophils/100 WBC (Bld) 0.9 % 0-1 [facility] Bilirubin [Mass/Vol] 0.40 mg/dL 0.20-1.00 [facility] Comment on above: For patients on eltr ombopag therapy, use of Dimension [place] TBIL is not recommended. Chloride [Moles/Vol] 103 mmol/L 98-107 [facility] Cholesterol [Mass/Vol] 116 mg/dL <200 [facility] Comment on above: <200 mg/dL Desirable 200-240 mg/dL Borderline >240 mg/dL High Risk Eosinophils/100 WBC (Bld) 1.6 % 0-5 [facility] Glucose [Mass/Vol] 126 mg/dL 74-106 [facility] Comment on above: Fasting Glucose resu lt greater than or equal to 126 mg/dL suggests DIABETES MELLITUS per A.D.A. criteria. Neutrophils (Bld) [#/Vol] 3.5 10*3/uL 2.0-7.7 [facility] Neutrophils/100 WBC (Bld) 62.4 % 47-70 [facility] Potassium [Moles/Vol] 4.1 mmol/L 3.5-5.1 [facility] Protein [Mass/Vol] 7.4 g/dL 6.4-8.2 [facility] Sodium [Moles/Vol] 140 mmol/L 136-145 [facility] Testosterone [Mass/Vol] 83.70 ng/dL [facility] Comment on above: CENTRAL 90% REFERENC E RANGES MALE AGE <50 197.44 - 669.58 ng/dL MALE AGE > or = 50 187.72 - 684.19 ng/dL FEMALE AGE <50 8.38 - 35.01 ng/dL FEMALE AGE > or = 50 <7.00 - 35.92 ng/dL Effective as of 09/17/20 Triglyceride [Mass/Vol] 194 mg/dL <199 [facility] Comment on above: The drugs N-Acetylcy steine and Metamizole may falsely depress this assay.Serum Triglycerides Reference Interval Normal <150 mg/dL Borderline high 150 - 199 mg/dL High 200 - 499 mg/dL Very High > or = 500 mg/dL WBC (Bld) [#/Vol] 5.5 10*3/uL 4.4-11.0 [facility] Blood erythrocytes count (nu mber/volume)Ordered By: Dr. Moon on 01-29-2022 RBC (Bld) [#/Vol] 5.14 10*6/uL 4.6-6.2 [facility] Blood hemoglobin measurement (mass/volume)Ordered By: Dr. Moon on 01-29-2022 Hemoglobin (Bld) [Mass/Vol] 14.4 g/dL 13.0-16.5 [facility] Blood lymphocytes/100 leukoc ytesOrdered By: Dr. Moon on 01-29-2022 Lymphocytes/100 WBC (Bld) 20.8 % 19-41 [facility] Blood monocytes/100 leukocyt esOrdered By: Dr. Moon on 01-29-2022 Monocytes/100 WBC (Bld) 13.4 % 0-10 [facility] Blood platelet mean volumeOr dered By: Dr. Moon on 01-29-2022 Platelet mean volume (Bld) [Entitic vol] 9.6 fL 6.2-12.0 [facility] Determination of erythrocyte mean corpuscular volume (MCV)Ordered By: Dr. Moon on 01-29-2022 MCV (RBC) [Entitic vol] 86.8 fL 80-94 [facility] Hematocrit Auto (Bld) [Volum e fraction]Ordered By: Dr. Moon on 01-29-2022 Hematocrit (Bld) [Volume fraction] 44.6 % 40-54 [facility] - Chemistry and C hemistry - challengeOrdered By: Dr. Moon on 01-29-2022 ALP [Catalytic activity/Vol] 99 U/L 45-117 [facility] ALT [Catalytic activity/Vol] 13 U/L 16-61 [facility] CO2 [Moles/Vol] 32.0 mmol/L 21.0-32.0 [facility] Globulin (S) [Mass/Vol] 3.7 g/dL 2.2-4.2 [facility] Urea nitrogen/Creatinine [Mass ratio] 25.0 mg/mg 10-20 [facility] - Hematology and Cell countsOrdered By: Dr. Moon on 01-29-2022 Erythrocyte distribution width (RBC) [Entitic vol] 44.6 fL 35.1-43.9 [facility] Erythrocyte distribution width (RBC) [Ratio] 14.1 % 11.6-14.6 [facility] Immature granulocytes/100 WBC (Bld) 0.900 % 0.0-0.9 [facility] Comment on above: IG% - Immature Granu locytes (promyelocytes, myelocytes and metamyelocytes) > 1% indicates that a LEFT SHIFT is Present. MCH (RBC) [Entitic mass] 28.0 pg 27.0-32.0 [facility] Nucleated RBC/100 WBC (Bld) [Ratio] 0 % 0-5 [facility] MCHC Auto (RBC) [Mass/Vol]Or dered By: Dr. Moon on 01-29-2022 MCHC (RBC) [Mass/Vol] 32.3 g/dL 32-36 [facility] No Panel InformationOrdered By: Dr. Moon on 01-29-2022 Estimated GFR (MDRD) Amer 81 mL/min >60 [facility] Comment on above: GFR Calc Estimated GFR (MDRD) Non-Af Amer 67 mL/min >60 [facility] Comment on above: Non- GFR Calc Thyroid Stimulating Hormone (TSH) 2.69 uIU/mL 0.358-3.74 [facility] Vitamin D 25-Hydroxy 58.1 ng/mL [facility] Comment on above: Vitamin D 25(OH) Sta tus Range Deficiency <20 ng/mL (50nmol/L) Insufficiency 20 - 30 ng/mL (50 - 75 nmol/L) Sufficiency 30 - 100 ng/mL (75 - 250 nmol/L) Toxicity >100 ng/mL (>250 nmol/L) Platelets bldOrdered By: Dr. Moon on 01-29-2022 Platelets (Bld) [#/Vol] 189 10*3/uL 150-450 [facility] Serum or plasma albumin mt urement (mass/volume)Ordered By: Dr. Moon on 01-29-2022 Albumin [Mass/Vol] 3.7 g/dL 3.2-5.0 [facility] Serum or plasma albumin/glob ulin mass ratioOrdered By: Dr. Moon on 01-29-2022 Albumin/Globulin [Mass ratio] 1.0 {ratio} 0.9-2.4 [facility] Serum or plasma calcium mt urement (mass/volume)Ordered By: Dr. Moon on 01-29-2022 Calcium [Mass/Vol] 9.2 mg/dL 8.5-10.1 [facility] Serum or plasma cholesterol in HDL measurement (mass/volume)Ordered By: Dr. Moon on 01-29-2022 Cholesterol in HDL [Mass/Vol] 43 mg/dL >40 [facility] Comment on above: The drugs N-Acetylcy steine and Metamizole may falsely depress this assay. Reference Range HDL <40 mg/dL Low HDL Cholesterol HDL >or= 60 mg/dL High HDL Cholesterol Serum or plasma cholesterol in VLDL measurement (mass/volume)Ordered By: Dr. Moon on 01-29-2022 Cholesterol in VLDL [Mass/Vol] 39 mg/dL 5-40 [facility] Serum or plasma creatinine m easurement (mass/volume)Ordered By: Dr. Moon on 01-29-2022 Creatinine [Mass/Vol] 1.12 mg/dL 0.70-1.30 [facility] Comment on above: The validity of the calculated GFR & GFRAA in patients over 70 years has not been determined. Clinical correlation is essential. Serum or plasma low density lipoprotein (LDL) cholesterol measurement (mass/volume)Ordered By: Dr. Moon on 01-29-2022 Cholesterol in LDL [Mass/Vol] 34 mg/dL 0-130 [facility] Serum or plasma urea nitroge n measurement (mass/volume)Ordered By: Dr. Moon on 01-29-2022 Urea nitrogen [Mass/Vol] 28 mg/dL 7-18 [facility] Thin prep Papanicolaou smear with manual screeningOrdered By: Dr. Moon on 01-29-2022 Thin prep Papanicolaou smear with manual screening 13 U/L 15-37 [facility] Thin prep Papanicolaou smear with manual screening 5 5-15 [facility] Whole blood hemoglobin A1c/t otal hemoglobin ratio (mass fraction)Ordered By: Dr. Moon on 01-29-2022 HbA1c (Bld) [Mass fraction] 7.3 % 3.8-5.6 [facility] Comment on above: Normal < 5.7 % Predi abetic 5.7 - 6.4 % Diabetic >or= 6.5 % Please note range changes. No Panel InformationOrdered By: MARY JANE Gregorio on 01-14-2022 Prostate Specific Antigen Total < 0.01 ng/mL 0.0-4.0 [facility] Comment on above: This test was perfor med using the TPSA assay method for the[employer] chemistry system. Values obtained with differentassay methods cannot be used interchangably.When changing PSA assays in the course of monitoring apatient, additional sequential testing should be carriedout to confirm baseline values. Absolute lymphocyte counton 10-30-2021 Lymphocytes Auto (Unsp spec) [#/Vol] 1.16 10*3/uL 0.83-4.51 [facility] Work Phone: Basophil percentageon 2021 Basophils/100 WBC (Bld) 0.4 % 0-1 [facility] Work Phone: Bilirubin [Mass/Vol] 0.40 mg/dL 0.20-1.00 [facility] Work Phone: Comment on above: For patients on eltr ombopag therapy, use of Dimension [place] TBIL is not recommended. Chloride [Moles/Vol] 105 mmol/L 98-107 [facility] Work Phone: Cholesterol [Mass/Vol] 95 mg/dL <200 [facility] Work Phone: Comment on above: <200 mg/dL Desirable 200-240 mg/dL Borderline >240 mg/dL High Risk Eosinophils/100 WBC (Bld) 3.1 % 0-5 [facility] Work Phone: Glucose [Mass/Vol] 133 mg/dL 74-106 [facility] Work Phone: Comment on above: Fasting Glucose resu lt greater than or equal to 126 mg/dL suggests DIABETES MELLITUS per A.D.A. criteria. Neutrophils (Bld) [#/Vol] 4.4 10*3/uL 2.0-7.7 [facility] Work Phone: Neutrophils/100 WBC (Bld) 65.0 % 47-70 [facility] Work Phone: Potassium [Moles/Vol] 4.6 mmol/L 3.5-5.1 [facility] Work Phone: Protein [Mass/Vol] 7.4 g/dL 6.4-8.2 [facility] Work Phone: Sodium [Moles/Vol] 140 mmol/L 136-145 [facility] Work Phone: Testosterone [Mass/Vol] 34.24 ng/dL [facility] Work Phone: Comment on above: CENTRAL 90% REFERENC E RANGES MALE AGE <50 197.44 - 669.58 ng/dL MALE AGE > or = 50 187.72 - 684.19 ng/dL FEMALE AGE <50 8.38 - 35.01 ng/dL FEMALE AGE > or = 50 <7.00 - 35.92 ng/dL Effective as of 09/17/20 Triglyceride [Mass/Vol] 163 mg/dL <199 [facility] Work Phone: Comment on above: The drugs N-Acetylcy steine and Metamizole may falsely depress this assay.Serum Triglycerides Reference Interval Normal <150 mg/dL Borderline high 150 - 199 mg/dL High 200 - 499 mg/dL Very High > or = 500 mg/dL WBC (Bld) [#/Vol] 6.8 10*3/uL 4.4-11.0 [facility] Work Phone: Blood erythrocytes count (nu mber/volume)on 10-30-2021 RBC (Bld) [#/Vol] 4.82 10*6/uL 4.6-6.2 [facility]: Blood hemoglobin measurement (mass/volume)on 10-30-2021 Hemoglobin (Bld) [Mass/Vol] 13.7 g/dL 13.0-16.5 [facility] Work Phone: Blood lymphocytes/100 leukoc yteson 10-30-2021 Lymphocytes/100 WBC (Bld) 17.1 % 19-41 [facility] Work Phone: Blood monocytes/100 leukocyt eson 10-30-2021 Monocytes/100 WBC (Bld) 13.4 % 0-10 [facility] Work Phone: Blood platelet mean volumeon 10-30-2021 Platelet mean volume (Bld) [Entitic vol] 9.5 fL 6.2-12.0 [facility] Work Phone: Determination of erythrocyte mean corpuscular volume (MCV)on 10-30-2021 MCV (RBC) [Entitic vol] 87.6 fL 80-94 [facility] Work Phone: Hematocrit Auto (Bld) [Volum e fraction]on 10-30-2021 Hematocrit (Bld) [Volume fraction] 42.2 % 40-54 [facility] Work Phone: Laboratory - Chemistry and C hemistry - challengeon 10-30-2021 ALP [Catalytic activity/Vol] 103 U/L 45-117 [facility] Work Phone: ALT [Catalytic activity/Vol] 15 U/L 16-61 [facility] Work Phone: CO2 [Moles/Vol] 25.0 mmol/L 21.0-32.0 [facility] Work Phone: Globulin (S) [Mass/Vol] 3.9 g/dL 2.2-4.2 [facility] Work Phone: Urea nitrogen/Creatinine [Mass ratio] 23.0 mg/mg 10-20 [facility] Work Phone: Laboratory - Hematology and Cell countson 10-30-2021 Erythrocyte distribution width (RBC) [Entitic vol] 44.1 fL 35.1-43.9 [facility] Work Phone: Erythrocyte distribution width (RBC) [Ratio] 13.8 % 11.6-14.6 [facility] Work Phone: Immature granulocytes/100 WBC (Bld) 1.000 % 0.0-0.9 [facility] Work Phone: Comment on above: IG% - Immature Granu locytes (promyelocytes, myelocytes and metamyelocytes) > 1% indicates that a LEFT SHIFT is Present. MCH (RBC) [Entitic mass] 28.4 pg 27.0-32.0 [facility] Work Phone: Nucleated RBC/100 WBC (Bld) [Ratio] 0 % 0-5 [facility] Work Phone: MCHC Auto (RBC) [Mass/Vol]on 10-30-2021 MCHC (RBC) [Mass/Vol] 32.5 g/dL 32-36 [facility] Work Phone: No Panel Informationon 10-30 Estimated GFR (MDRD) Amer 80 mL/min >60 [facility] Work Phone: Comment on above: GFR Calc Estimated GFR (MDRD) Non-Af Amer 66 mL/min >60 [facility] Work Phone: Comment on above: Non- GFR Calc Thyroid Stimulating Hormone (TSH) 2.52 uIU/mL 0.358-3.74 [facility] Work Phone: Vitamin D 25-Hydroxy 71.0 ng/mL [facility] Work Phone: Comment on above: Vitamin D 25(OH) Sta tus Range Deficiency <20 ng/mL (50nmol/L) Insufficiency 20 - 30 ng/mL (50 - 75 nmol/L) Sufficiency 30 - 100 ng/mL (75 - 250 nmol/L) Toxicity >100 ng/mL (>250 nmol/L) Platelets bldon 10-30-2021 Platelets (Bld) [#/Vol] 199 10*3/uL 150-450 [facility] Work Phone: Serum or plasma albumin mt urement (mass/volume)on 10-30-2021 Albumin [Mass/Vol] 3.5 g/dL 3.2-5.0 [facility] Work Phone: Serum or plasma albumin/glob ulin mass ratioon 10-30-2021 Albumin/Globulin [Mass ratio] 0.9 {ratio} 0.9-2.4 [facility] Work Phone: Serum or plasma calcium mt urement (mass/volume)on 10-30-2021 Calcium [Mass/Vol] 9.4 mg/dL 8.5-10.1 [facility] Work Phone: Serum or plasma cholesterol in HDL measurement (mass/volume)on 10-30-2021 Cholesterol in HDL [Mass/Vol] 48 mg/dL >40 [facility] Work Phone: Comment on above: The drugs N-Acetylcy steine and Metamizole may falsely depress this assay. Reference Range HDL <40 mg/dL Low HDL Cholesterol HDL >or= 60 mg/dL High HDL Cholesterol Serum or plasma cholesterol in VLDL measurement (mass/volume)on 10-30-2021 Cholesterol in VLDL [Mass/Vol] 33 mg/dL 5-40 [facility] Work Phone: Serum or plasma creatinine m easurement (mass/volume)on 10-30-2021 Creatinine [Mass/Vol] 1.13 mg/dL 0.70-1.30 [facility] Work Phone: Comment on above: The validity of the calculated GFR & GFRAA in patients over 70 years has not been determined. Clinical correlation is essential. Serum or plasma low density lipoprotein (LDL) cholesterol measurement (mass/volume)on 10-30-2021 Cholesterol in LDL [Mass/Vol] 14 mg/dL 0-130 [facility] Work Phone: Serum or plasma urea nitroge n measurement (mass/volume)on 10-30-2021 Urea nitrogen [Mass/Vol] 26 mg/dL 7-18 [facility] Work Phone: Thin prep Papanicolaou smear with manual screeningon 10-30-2021 Thin prep Papanicolaou smear with manual screening 9 U/L 15-37 [facility] Work Phone: Thin prep Papanicolaou smear with manual screening 10 5-15 [facility] Work Phone: Whole blood hemoglobin A1c/t otal hemoglobin ratio (mass fraction)on 10-30-2021 HbA1c (Bld) [Mass fraction] 7.0 % 3.8-5.6 [facility] Work Phone: Comment on above: Normal < 5.7 % Predi abetic 5.7 - 6.4 % Diabetic >or= 6.5 % Please note range changes. Absolute lymphocyte counton 08-15-2021 Lymphocytes Auto (Unsp spec) [#/Vol] 1.20 10*3/uL 0.83-4.51 [facility] Work Phone: Basophil percentageon 2021 Basophils/100 WBC (Bld) 0.6 % 0-1 [facility] Work Phone: Bilirubin [Mass/Vol] 0.40 mg/dL 0.20-1.00 [facility] Work Phone: Comment on above: For patients on eltr ombopag therapy, use of Dimension [place] TBIL is not recommended. Chloride [Moles/Vol] 104 mmol/L 98-107 [facility] Work Phone: Cholesterol [Mass/Vol] 105 mg/dL <200 [facility] Work Phone: Comment on above: <200 mg/dL Desirable 200-240 mg/dL Borderline >240 mg/dL High Risk Eosinophils/100 WBC (Bld) 1.5 % 0-5 [facility] Work Phone: Glucose [Mass/Vol] 140 mg/dL 74-106 [facility] Work Phone: Comment on above: Fasting Glucose resu lt greater than or equal to 126 mg/dL suggests DIABETES MELLITUS per A.D.A. criteria. Neutrophils (Bld) [#/Vol] 4.4 10*3/uL 2.0-7.7 [facility] Work Phone: Neutrophils/100 WBC (Bld) 66.8 % 47-70 [facility] Work Phone: Potassium [Moles/Vol] 4.1 mmol/L 3.5-5.1 [facility] Work Phone: Protein [Mass/Vol] 7.4 g/dL 6.4-8.2 [facility] Work Phone: Sodium [Moles/Vol] 139 mmol/L 136-145 [facility] Work Phone: Testosterone [Mass/Vol] 39.30 ng/dL [facility] Work Phone: Comment on above: CENTRAL 90% REFERENC E RANGES MALE AGE <50 197.44 - 669.58 ng/dL MALE AGE > or = 50 187.72 - 684.19 ng/dL FEMALE AGE <50 8.38 - 35.01 ng/dL FEMALE AGE > or = 50 <7.00 - 35.92 ng/dL Effective as of 09/17/20 Triglyceride [Mass/Vol] 178 mg/dL <199 [facility] Work Phone: Comment on above: The drugs N-Acetylcy steine and Metamizole may falsely depress this assay.Serum Triglycerides Reference Interval Normal <150 mg/dL Borderline high 150 - 199 mg/dL High 200 - 499 mg/dL Very High > or = 500 mg/dL WBC (Bld) [#/Vol] 6.5 10*3/uL 4.4-11.0 [facility] Work Phone: Blood erythrocytes count (nu mber/volume)on 08-15-2021 RBC (Bld) [#/Vol] 5.00 10*6/uL 4.6-6.2 [facility]: Blood hemoglobin measurement (mass/volume)on 08-15-2021 Hemoglobin (Bld) [Mass/Vol] 14.1 g/dL 13.0-16.5 [facility] Work Phone: Blood lymphocytes/100 leukoc yteson 08-15-2021 Lymphocytes/100 WBC (Bld) 18.4 % 19-41 [facility] Work Phone: Blood monocytes/100 leukocyt eson 08-15-2021 Monocytes/100 WBC (Bld) 11.5 % 0-10 [facility] Work Phone: Blood platelet mean volumeon 08-15-2021 Platelet mean volume (Bld) [Entitic vol] 9.5 fL 6.2-12.0 [facility] Work Phone: Determination of erythrocyte mean corpuscular volume (MCV)on 08-15-2021 MCV (RBC) [Entitic vol] 86.2 fL 80-94 [facility] Work Phone: Hematocrit Auto (Bld) [Volum e fraction]on 08-15-2021 Hematocrit (Bld) [Volume fraction] 43.1 % 40-54 [facility] Work Phone: Laboratory - Chemistry and C hemistry - challengeon 08-15-2021 ALP [Catalytic activity/Vol] 91 U/L 45-117 [facility] Work Phone: ALT [Catalytic activity/Vol] 12 U/L 16-61 [facility] Work Phone: CO2 [Moles/Vol] 26.0 mmol/L 21.0-32.0 [facility] Work Phone: Globulin (S) [Mass/Vol] 3.7 g/dL 2.2-4.2 [facility] Work Phone: Urea nitrogen/Creatinine [Mass ratio] 22.9 mg/mg 10-20 [facility] Work Phone: Laboratory - Hematology and Cell countson 08-15-2021 Erythrocyte distribution width (RBC) [Entitic vol] 44.4 fL 35.1-43.9 [facility] Work Phone: Erythrocyte distribution width (RBC) [Ratio] 14.3 % 11.6-14.6 [facility] Work Phone: Immature granulocytes/100 WBC (Bld) 1.200 % 0.0-0.9 [facility] Work Phone: Comment on above: IG% - Immature Granu locytes (promyelocytes, myelocytes and metamyelocytes) > 1% indicates that a LEFT SHIFT is Present. MCH (RBC) [Entitic mass] 28.2 pg 27.0-32.0 [facility] Work Phone: Nucleated RBC/100 WBC (Bld) [Ratio] 0 % 0-5 [facility] Work Phone: MCHC Auto (RBC) [Mass/Vol]on 08-15-2021 MCHC (RBC) [Mass/Vol] 32.7 g/dL 32-36 [facility] Work Phone: No Panel Informationon 08-15 Estimated GFR (MDRD) Amer 77 mL/min >60 [facility] Work Phone: Comment on above: GFR Calc Estimated GFR (MDRD) Non-Af Amer 63 mL/min >60 [facility] Work Phone: Comment on above: Non- GFR Calc Thyroid Stimulating Hormone (TSH) 2.38 uIU/mL 0.358-3.74 [facility] Work Phone: Vitamin D 25-Hydroxy 45.4 ng/mL [facility] Work Phone: Comment on above: Vitamin D 25(OH) Sta tus Range Deficiency <20 ng/mL (50nmol/L) Insufficiency 20 - 30 ng/mL (50 - 75 nmol/L) Sufficiency 30 - 100 ng/mL (75 - 250 nmol/L) Toxicity >100 ng/mL (>250 nmol/L) Platelets bldon 08-15-2021 Platelets (Bld) [#/Vol] 205 10*3/uL 150-450 [facility] Work Phone: Serum or plasma albumin mt urement (mass/volume)on 08-15-2021 Albumin [Mass/Vol] 3.7 g/dL 3.2-5.0 [facility] Work Phone: Serum or plasma albumin/glob ulin mass ratioon 08-15-2021 Albumin/Globulin [Mass ratio] 1.0 {ratio} 0.9-2.4 [facility] Work Phone: Serum or plasma calcium mt urement (mass/volume)on 08-15-2021 Calcium [Mass/Vol] 9.4 mg/dL 8.5-10.1 [facility] Work Phone: Serum or plasma cholesterol in HDL measurement (mass/volume)on 08-15-2021 Cholesterol in HDL [Mass/Vol] 44 mg/dL >40 [facility] Work Phone: Comment on above: The drugs N-Acetylcy steine and Metamizole may falsely depress this assay. Reference Range HDL <40 mg/dL Low HDL Cholesterol HDL >or= 60 mg/dL High HDL Cholesterol Serum or plasma cholesterol in VLDL measurement (mass/volume)on 08-15-2021 Cholesterol in VLDL [Mass/Vol] 36 mg/dL 5-40 [facility] Work Phone: Serum or plasma creatinine m easurement (mass/volume)on 08-15-2021 Creatinine [Mass/Vol] 1.18 mg/dL 0.70-1.30 [facility] Work Phone: Comment on above: The validity of the calculated GFR & GFRAA in patients over 70 years has not been determined. Clinical correlation is essential. Serum or plasma low density lipoprotein (LDL) cholesterol measurement (mass/volume)on 08-15-2021 Cholesterol in LDL [Mass/Vol] 25 mg/dL 0-130 [facility] Work Phone: Serum or plasma urea nitroge n measurement (mass/volume)on 08-15-2021 Urea nitrogen [Mass/Vol] 27 mg/dL 7-18 [facility] Work Phone: Thin prep Papanicolaou smear with manual screeningon 08-15-2021 Thin prep Papanicolaou smear with manual screening 15 U/L 15-37 [facility] Work Phone: Thin prep Papanicolaou smear with manual screening 9 5-15 [facility] Work Phone: Whole blood hemoglobin A1c/t otal hemoglobin ratio (mass fraction)on 08-15-2021 HbA1c (Bld) [Mass fraction] 7.2 % 3.8-5.6 [facility] Work Phone: Comment on above: Normal < 5.7 % Predi abetic 5.7 - 6.4 % Diabetic >or= 6.5 % Please note range changes. Basophil percentageon 2021 Chloride [Moles/Vol] 106 mmol/L 98-107 [facility] Work Phone: Glucose [Mass/Vol] 231 mg/dL 74-106 [facility] Work Phone: Comment on above: Glucose result great er than or equal to 200 mg/dLsuggests DIABETES MELLITUS per A.D.A. criteria. Potassium [Moles/Vol] 4.2 mmol/L 3.5-5.1 [facility] Work Phone: Sodium [Moles/Vol] 140 mmol/L 136-145 [facility] Work Phone: Testosterone [Mass/Vol] 40.82 ng/dL [facility] Work Phone: Comment on above: CENTRAL 90% REFERENC E RANGES MALE AGE <50 197.44 - 669.58 ng/dL MALE AGE > or = 50 187.72 - 684.19 ng/dL FEMALE AGE <50 8.38 - 35.01 ng/dL FEMALE AGE > or = 50 <7.00 - 35.92 ng/dL Effective as of 09/17/20 Laboratory - Chemistry and C hemistry - challengeon 07-11-2021 CO2 [Moles/Vol] 27.0 mmol/L 21.0-32.0 [facility] Work Phone: Urea nitrogen/Creatinine [Mass ratio] 22.7 mg/mg 12-11 [facility] Work Phone: No Panel Informationon 07-11 Estimated GFR (MDRD) Amer 83 mL/min >60 [facility] Work Phone: Comment on above: GFR Calc Estimated GFR (MDRD) Non-Af Amer 69 mL/min >60 [facility] Work Phone: Comment on above: Non- GFR Calc Prostate Specific Antigen Total < 0.01 ng/mL 0.0-4.0 [facility] Work Phone: Comment on above: This test was perfor med using the TPSA assay method for the[employer] chemistry system. Values obtained with differentassay methods cannot be used interchangably.When changing PSA assays in the course of monitoring apatient, additional sequential testing should be carriedout to confirm baseline values. Serum or plasma calcium mt urement (mass/volume)on 07-11-2021 Calcium [Mass/Vol] 9.1 mg/dL 8.5-10.1 [facility] Work Phone: Serum or plasma creatinine m easurement (mass/volume)on 07-11-2021 Creatinine [Mass/Vol] 1.10 mg/dL 0.70-1.30 [facility] Work Phone: Comment on above: The validity of the calculated GFR & GFRAA in patients over 70 years has not been determined. Clinical correlation is essential. Serum or plasma urea nitroge n measurement (mass/volume)on 07-11-2021 Urea nitrogen [Mass/Vol] 25 mg/dL 09-08 [facility] Work Phone: Thin prep Papanicolaou smear with manual screeningon 07-11-2021 Thin prep Papanicolaou smear with manual screening 7 5- [facility] Work Phone: CNOVon 05-29-2021 CNOV Office Visit (UCWSTR ) FARHANA THRASHER ([id number]) 1940 M Date Time Provider Department 05/29/21 9:45 AM YOSELIN KHAN [facility] During your visit today, we recorded the following information about you: Temperature Pulse Respiration Blood pressure 97.8 degrees 59/minute 18/minute 136/74 Weight 91.4 kg Yoselin Khan APRN.WATER PLANT PUMP OPERATOR SUPERVISOR 05/29/2021 10:25 AM Signed Subjective Patient came in because he was exposed to covid a week ago and has no symptoms at this time. The history is provided by the patient. No early morning was used. Review of Systems Constitutional: Negative. [...] - COVID WITH FLUA+B, ROUTINE Yoselin Khan APRN.WATER PLANT PUMP OPERATOR SUPERVISOR Referring Provider: SELF [[id number]] Allergies As of Date: 05/29/2021 Noted Allergy Reaction ADHESIVE TAPE-SILICONES 05/23/2021 2 - Rash Date Reviewed: 05/29/2021 Reviewed by: Urszula Lowry LPN - Fully Assessed Reason for Visit: COVID exposure [Other] Cmt: COVID exposure Primary Visit Diagnosis:Close exposure to COVID-19 virus [Z20.822] Order(s):COVID WITH FLUA+B, ROUTINE [SQCOVFLU] Order #: [id number] FUTURE COVID WITH FLUA+B, ROUTINE [SQCOVFLU] Order #: [id number]. #:[id number] Prescriptions as of 05/29/2021 - insulin needles, DISPOSABLE, (PEN NEEDLE) 31 X 07/07 Ndle Use as directed. - glimepiride 4 mg tablet Take by mouth 1/2 tab daily - metFORMIN ER 500 mg 24 hr tablet Take by mouth two tablets every - omega-3 acid ethyl esters (LOVAZA) 1 [...] directed) - blood sugar diagnostic (ACCU-CHEK CLARITZA) [facility] test strip CHECK BLOOD SUGARS 3-4 TIMES DAILY - calcium carbonate 600 mg-cholecalciferol 200 units (CALCIUM 600 + D,3,) 600 mg(1,500mg) -200 unit ORAL Tab (more content not included)... Normal [facility] CNOVon 05-23-2021 CNOV Office Visit (UCWSTR ) FARHANA THRASHER ([id number]) 1940 M Date Time Provider Department 05/23/21 11:30 AM ALIX VALLE During your visit today, we recorded the following information about you: Temperature Pulse Respiration Blood pressure 97.5 degrees 67/minute 18/minute 118/68 Weight 93.4 kg Alix Valle APRN.CNP 05/23/2021 3:33 PM Signed This note was created using [employer]. Subjective Farhana Thrasher is a 81 year [...] ASYMPTOMATIC ELECTIVE COVID-19 Sadiq Massey TEACHING PROVIDER (Physician/PA/ERP ENGINEER) NOTE OF PERSONAL INVOLVEMENT IN CARE: I have personally seen and examined the patient and performed the medical decision-making components. I have reviewed the Advanced Practice Registered Nurse (ERP ENGINEER) Student's documentation and verified the findings in the note as written. Any additions or changes are noted in everton (more content not included)... Normal [facility] SARS-CoV-2 RNA Resp Ql BRIAN+p robeon 05-23-2021 SARS-CoV-2 (COVID-19) RNA BRIAN+probe Ql (Resp) COVID 19 RESULT: SARS-CoV-2 (Agent of COVID-19) Not Detected by RT-PCR or equivalent method. This test was developed and its performance characteristics determined by [facility] [place]. This test has been authorized by FDA under an Emergency Use Authorization (EUA). This test has been validated in accordance with the FDA's Guidance Document Policy for Diagnostics Testing in Laboratories Certified to Perform High Complexity Testing under CLIA prior to Emergency use Authorization for Coronavirus Disease 2019 during the Public Health Emergency issued on April 22, 2019. Test performed by [facility], [facility] [place], [address] [place] [address]. Normal [facility] Comment on above: Performed By: #### [id number] #### [facility] CLIA [id number] [address] [place] [address] [place] Absolute lymphocyte counton 05-12-2021 Lymphocytes Auto (Unsp spec) [#/Vol] 1.26 10*3/uL 0.83-4.51 [facility] Work Phone: Basophil percentageon 2021 Basophils/100 WBC (Bld) 0.5 % 0-1 [facility] Work Phone: Bilirubin [Mass/Vol] 0.40 mg/dL 0.20-1.00 [facility] Work Phone: Comment on above: For patients on eltr ombopag therapy, use of Dimension [place] TBIL is not recommended. Chloride [Moles/Vol] 106 mmol/L 98-107 [facility] Work Phone: Cholesterol [Mass/Vol] 113 mg/dL <200 [facility] Work Phone: Comment on above: <200 mg/dL Desirable 200-240 mg/dL Borderline >240 mg/dL High Risk Eosinophils/100 WBC (Bld) 1.1 % 0-5 [facility] Work Phone: Glucose [Mass/Vol] 139 mg/dL 74-106 [facility] Work Phone: Comment on above: Fasting Glucose resu lt greater than or equal to 126 mg/dL suggests DIABETES MELLITUS per A.D.A. criteria. Neutrophils (Bld) [#/Vol] 5.0 10*3/uL 2.0-7.7 [facility] Work Phone: Neutrophils/100 WBC (Bld) 67.8 % 47-70 [facility] Work Phone: Potassium [Moles/Vol] 4.5 mmol/L 3.5-5.1 [facility] Work Phone: Protein [Mass/Vol] 6.8 g/dL 6.4-8.2 [facility] Work Phone: Sodium [Moles/Vol] 138 mmol/L 136-145 [facility] Work Phone: Testosterone [Mass/Vol] 222.68 ng/dL [facility] Work Phone: Comment on above: CENTRAL 90% REFERENC E RANGES MALE AGE <50 197.44 - 669.58 ng/dL MALE AGE > or = 50 187.72 - 684.19 ng/dL FEMALE AGE <50 8.38 - 35.01 ng/dL FEMALE AGE > or = 50 <7.00 - 35.92 ng/dL Effective as of 09/17/20 Triglyceride [Mass/Vol] 277 mg/dL <199 [facility] Work Phone: Comment on above: The drugs N-Acetylcy steine and Metamizole may falsely depress this assay.Serum Triglycerides Reference Interval Normal <150 mg/dL Borderline high 150 - 199 mg/dL High 200 - 499 mg/dL Very High > or = 500 mg/dL WBC (Bld) [#/Vol] 7.3 10*3/uL 4.4-11.0 [facility] Work Phone: Blood erythrocytes count (nu mber/volume)on 05-12-2021 RBC (Bld) [#/Vol] 4.61 10*6/uL 4.6-6.2 [facility] Work Phone: Blood hemoglobin measurement (mass/volume)on 05-12-2021 Hemoglobin (Bld) [Mass/Vol] 13.3 g/dL 13.0-16.5 [facility] Work Phone: Blood lymphocytes/100 leukoc yteson 05-12-2021 Lymphocytes/100 WBC (Bld) 17.2 % 19-41 [facility] Work Phone: Blood monocytes/100 leukocyt eson 05-12-2021 Monocytes/100 WBC (Bld) 12.4 % 0-10 [facility] Work Phone: Blood platelet mean volumeon 05-12-2021 Platelet mean volume (Bld) [Entitic vol] 9.4 fL 6.2-12.0 [facility] Work Phone: Determination of erythrocyte mean corpuscular volume (MCV)on 05-12-2021 MCV (RBC) [Entitic vol] 87.6 fL 80-94 [facility] Work Phone: Hematocrit Auto (Bld) [Volum e fraction]on 05-12-2021 Hematocrit (Bld) [Volume fraction] 40.4 % 40-54 [facility] Work Phone: Laboratory - Chemistry and C hemistry - challengeon 05-12-2021 ALP [Catalytic activity/Vol] 78 U/L 45-117 [facility] Work Phone: ALT [Catalytic activity/Vol] 9 U/L 16-61 [facility] Work Phone: CO2 [Moles/Vol] 26.0 mmol/L 21.0-32.0 [facility] Work Phone: Globulin (S) [Mass/Vol] 3.3 g/dL 2.2-4.2 [facility] Work Phone: Urea nitrogen/Creatinine [Mass ratio] 19.0 mg/mg 10-20 [facility] Work Phone: Laboratory - Hematology and Cell countson 05-12-2021 Erythrocyte distribution width (RBC) [Entitic vol] 43.7 fL 35.1-43.9 [facility] Work Phone: Erythrocyte distribution width (RBC) [Ratio] 13.8 % 11.6-14.6 [facility] Work Phone: Immature granulocytes/100 WBC (Bld) 1.000 % 0.0-0.9 [facility] Work Phone: Comment on above: IG% - Immature Granu locytes (promyelocytes, myelocytes and metamyelocytes) > 1% indicates that a LEFT SHIFT is Present. MCH (RBC) [Entitic mass] 28.9 pg 27.0-32.0 [facility] Work Phone: Nucleated RBC/100 WBC (Bld) [Ratio] 0 % 0-5 [facility] Work Phone: MCHC Auto (RBC) [Mass/Vol]on 05-12-2021 MCHC (RBC) [Mass/Vol] 32.9 g/dL 32-36 [facility] Work Phone: No Panel Informationon 05-12 Estimated GFR (MDRD) Amer 74 mL/min >60 [facility] Work Phone: Comment on above: GFR Calc Estimated GFR (MDRD) Non-Af Amer 62 mL/min >60 [facility] Work Phone: Comment on above: Non- GFR Calc Thyroid Stimulating Hormone (TSH) 2.16 uIU/mL 0.358-3.74 [facility] Work Phone: Vitamin D 25-Hydroxy 41.9 ng/mL [facility] Work Phone: Comment on above: Vitamin D 25(OH) Sta tus Range Deficiency <20 ng/mL (50nmol/L) Insufficiency 20 - 30 ng/mL (50 - 75 nmol/L) Sufficiency 30 - 100 ng/mL (75 - 250 nmol/L) Toxicity >100 ng/mL (>250 nmol/L) Platelets bldon 05-12-2021 Platelets (Bld) [#/Vol] 213 10*3/uL 150-450 [facility] Work Phone: Serum or plasma albumin mt urement (mass/volume)on 05-12-2021 Albumin [Mass/Vol] 3.5 g/dL 3.2-5.0 [facility] Work Phone: Serum or plasma albumin/glob ulin mass ratioon 05-12-2021 Albumin/Globulin [Mass ratio] 1.1 {ratio} 0.9-2.4 [facility] Work Phone: Serum or plasma calcium mt urement (mass/volume)on 05-12-2021 Calcium [Mass/Vol] 9.2 mg/dL 8.5-10.1 [facility] Work Phone: Serum or plasma cholesterol in HDL measurement (mass/volume)on 05-12-2021 Cholesterol in HDL [Mass/Vol] 39 mg/dL >40 [facility] Work Phone: Comment on above: The drugs N-Acetylcy steine and Metamizole may falsely depress this assay. Reference Range HDL <40 mg/dL Low HDL Cholesterol HDL >or= 60 mg/dL High HDL Cholesterol Serum or plasma cholesterol in VLDL measurement (mass/volume)on 05-12-2021 Cholesterol in VLDL [Mass/Vol] 55 mg/dL 5-40 [facility] Work Phone: Serum or plasma creatinine m easurement (mass/volume)on 05-12-2021 Creatinine [Mass/Vol] 1.21 mg/dL 0.70-1.30 [facility] Work Phone: Comment on above: The validity of the calculated GFR & GFRAA in patients over 70 years has not been determined. Clinical correlation is essential. Serum or plasma low density lipoprotein (LDL) cholesterol measurement (mass/volume)on 05-12-2021 Cholesterol in LDL [Mass/Vol] 19 mg/dL 0-130 [facility] Work Phone: Serum or plasma urea nitroge n measurement (mass/volume)on 05-12-2021 Urea nitrogen [Mass/Vol] 23 mg/dL 7-18 [facility] Work Phone: Thin prep Papanicolaou smear with manual screeningon 05-12-2021 Thin prep Papanicolaou smear with manual screening 13 U/L 15-37 [facility] Work Phone: Thin prep Papanicolaou smear with manual screening 6 5-15 [facility] Work Phone: Whole blood hemoglobin A1c/t otal hemoglobin ratio (mass fraction)on 05-12-2021 HbA1c (Bld) [Mass fraction] 7.4 % 3.8-5.6 [facility] Work Phone: Comment on above: Normal < 5.7 % Predi abetic 5.7 - 6.4 % Diabetic >or= 6.5 % Please note range changes. Basophil percentageon 2021 Testosterone [Mass/Vol] 42.20 ng/dL [facility] Work Phone: Comment on above: CENTRAL 90% REFERENC E RANGES MALE AGE <50 197.44 - 669.58 ng/dL MALE AGE > or = 50 187.72 - 684.19 ng/dL FEMALE AGE <50 8.38 - 35.01 ng/dL FEMALE AGE > or = 50 <7.00 - 35.92 ng/dL Effective as of 09/17/20 No Panel Informationon 04-04 Prostate Specific Antigen Total < 0.01 ng/mL 0.0-4.0 [facility] Work Phone: Comment on above: This test was perfor med using the TPSA assay method for the[employer] chemistry system. Values obtained with differentassay methods cannot be used interchangably.When changing PSA assays in the course of monitoring apatient, additional sequential testing should be carriedout to confirm baseline values. Absolute lymphocyte counton 02-11-2021 Lymphocytes Auto (Unsp spec) [#/Vol] 1.21 10*3/uL 0.83-4.51 [facility] Work Phone: Basophil percentageon 2020 Bilirubin [Mass/Vol] 0.50 mg/dL 0.20-1.00 [facility] Work Phone: Comment on above: For patients on eltr ombopag therapy, use of Dimension [place] TBIL is not recommended. Chloride [Moles/Vol] 101 mmol/L 98-107 [facility] Work Phone: Cholesterol [Mass/Vol] 107 mg/dL <200 [facility] Work Phone: Comment on above: <200 mg/dL Desirable 200-240 mg/dL Borderline >240 mg/dL High Risk Eosinophils/100 WBC (Bld) 1.5 % 0-5 [facility] Work Phone: Glucose [Mass/Vol] 109 mg/dL 74-106 [facility] Work Phone: Comment on above: Fasting Glucose resu lt from 100 to 125 mg/dL suggests IMPAIRED HOMEOSTASIS per A.D.A. criteria.Please note revised GLUCOSE reference range effective 2017. Neutrophils (Bld) [#/Vol] 3.8 10*3/uL 2.0-7.7 [facility] Work Phone: Potassium [Moles/Vol] 4.5 mmol/L 3.5-5.1 [facility] Work Phone: Protein [Mass/Vol] 7.2 g/dL 6.4-8.2 [facility] Work Phone: Sodium [Moles/Vol] 140 mmol/L 136-145 [facility] Work Phone: Testosterone [Mass/Vol] 71.79 ng/dL [facility] Work Phone: Comment on above: CENTRAL 90% REFERENC E RANGES MALE AGE <50 197.44 - 669.58 ng/dL MALE AGE > or = 50 187.72 - 684.19 ng/dL FEMALE AGE <50 8.38 - 35.01 ng/dL FEMALE AGE > or = 50 <7.00 - 35.92 ng/dL Effective as of 09/17/20 Triglyceride [Mass/Vol] 168 mg/dL [facility] Work Phone: Comment on above: The drugs N-Acetylcy steine and Metamizole may falsely depress this assay.Serum Triglycerides Reference Interval Normal <150 mg/dL Borderline high 150 - 199 mg/dL High 200 - 499 mg/dL Very High > or = 500 mg/dL WBC (Bld) [#/Vol] 5.9 10*3/uL 4.4-11.0 [facility] Work Phone: Blood erythrocytes count (nu mber/volume)on 02-11-2021 RBC (Bld) [#/Vol] 5.45 10*6/uL 4.6-6.2 [facility] Work Phone: Blood hemoglobin measurement (mass/volume)on 02-11-2021 Hemoglobin (Bld) [Mass/Vol] 14.2 g/dL 13.0-16.5 [facility] Work Phone: Blood lymphocytes/100 leukoc yteson 02-11-2021 Lymphocytes/100 WBC (Bld) 20.6 % 19-41 [facility] Work Phone: Blood manual differential co mment interpretation (narrative result)on 02-11-2021 Manual differential comment Jones (Bld) [Interp] SCANNED [facility] Work Phone: Blood monocytes/100 leukocyt eson 02-11-2021 Monocytes/100 WBC (Bld) 11.6 % 0-10 [facility] Work Phone: Blood platelet mean volumeon 02-11-2021 Platelet mean volume (Bld) [Entitic vol] 8.8 fL 6.2-12.0 [facility] Work Phone: Determination of erythrocyte mean corpuscular volume (MCV)on 02-11-2021 MCV (RBC) [Entitic vol] 80.0 fL 80-94 [facility] Work Phone: Hematocrit Auto (Bld) [Volum e fraction]on 02-11-2021 Hematocrit (Bld) [Volume fraction] 43.6 % 40-54 [facility] Work Phone: Laboratory - Chemistry and C hemistry - challengeon 02-11-2021 ALP [Catalytic activity/Vol] 83 U/L 45-117 [facility] Work Phone: ALT [Catalytic activity/Vol] 18 U/L 16-61 [facility] Work Phone: CO2 [Moles/Vol] 31.0 mmol/L 21.0-32.0 [facility] Work Phone: Globulin (S) [Mass/Vol] 3.7 g/dL 2.2-4.2 [facility] Work Phone: Urea nitrogen/Creatinine [Mass ratio] 21.1 mg/mg 10-20 [facility] Work Phone: Laboratory - Hematology and Cell countson 02-11-2021 Anisocytosis Ql (Bld) 1+ [facility] Work [facility]: Basophils/100 WBC (Unsp spec) 1.0 % 0-1 [facility] Work Phone: Erythrocyte distribution width (RBC) [Entitic vol] 58.9 fL 35.1-43.9 [facility] Work Phone: Erythrocyte distribution width (RBC) [Ratio] 20.7 % 11.6-14.6 [facility] Work Phone: Immature granulocytes/100 WBC (Bld) 0.900 % 0.0-0.9 [facility] Work Phone: Comment on above: IG% - Immature Granu locytes (promyelocytes, myelocytes and metamyelocytes) > 1% indicates that a LEFT SHIFT is Present. MCH (RBC) [Entitic mass] 26.1 pg 27.0-32.0 [facility] Work Phone: Neutrophils/100 WBC (Bld) 64.4 % 47-70 [facility] Work Phone: Nucleated RBC/100 WBC (Bld) [Ratio] 0 % 0-5 [facility] Work Phone: MCHC Auto (RBC) [Mass/Vol]on 02-11-2021 MCHC (RBC) [Mass/Vol] 32.6 g/dL 32-36 [facility] Work Phone: No Panel Informationon 02-11 Estimated GFR (MDRD) Amer 84 mL/min >60 [facility] Work Phone: Comment on above: GFR Calc Estimated GFR (MDRD) Non-Af Amer 69 mL/min >60 [facility] Work Phone: Comment on above: Non- GFR Calc Thyroid Stimulating Hormone (TSH) 2.30 uIU/mL 0.358-3.74 [facility] Work Phone: Vitamin D 25-Hydroxy 49.2 ng/mL [facility] Work Phone: Comment on above: Vitamin D 25(OH) Sta tus Range Deficiency <20 ng/mL (50nmol/L) Insufficiency 20 - 30 ng/mL (50 - 75 nmol/L) Sufficiency 30 - 100 ng/mL (75 - 250 nmol/L) Toxicity >100 ng/mL (>250 nmol/L) Platelets bldon 02-11-2021 Platelets (Bld) [#/Vol] 185 10*3/uL 150-450 [facility] Work Phone: Serum or plasma albumin mt urement (mass/volume)on 02-11-2021 Albumin [Mass/Vol] 3.5 g/dL 3.2-5.0 [facility] Work Phone: Serum or plasma albumin/glob ulin mass ratioon 02-11-2021 Albumin/Globulin [Mass ratio] 0.9 {ratio} 0.9-2.4 [facility] Work Phone: Serum or plasma calcium mt urement (mass/volume)on 02-11-2021 Calcium [Mass/Vol] 9.4 mg/dL 8.5-10.1 [facility] Work Phone: Serum or plasma cholesterol in HDL measurement (mass/volume)on 02-11-2021 Cholesterol in HDL [Mass/Vol] 49 mg/dL [facility] Work Phone: Comment on above: The drugs N-Acetylcy steine and Metamizole may falsely depress this assay. Reference Range HDL <40 mg/dL Low HDL Cholesterol HDL >or= 60 mg/dL High HDL Cholesterol Serum or plasma cholesterol in VLDL measurement (mass/volume)on 02-11-2021 Cholesterol in VLDL [Mass/Vol] 34 mg/dL 5-40 [facility] Work Phone: Serum or plasma creatinine m easurement (mass/volume)on 02-11-2021 Creatinine [Mass/Vol] 1.09 mg/dL 0.70-1.30 [facility] Work Phone: Comment on above: The validity of the calculated GFR & GFRAA in patients over 70 years has not been determined. Clinical correlation is essential. Serum or plasma low density lipoprotein (LDL) cholesterol measurement (mass/volume)on 02-11-2021 Cholesterol in LDL [Mass/Vol] 24 mg/dL 0-130 [facility] Work Phone: Serum or plasma urea nitroge n measurement (mass/volume)on 02-11-2021 Urea nitrogen [Mass/Vol] 23 mg/dL 7-18 [facility] Work Phone: Thin prep Papanicolaou smear with manual screeningon 02-11-2021 Thin prep Papanicolaou smear with manual screening 13 U/L 15-37 [facility] Work Phone: Thin prep Papanicolaou smear with manual screening 8 5-15 [facility] Work Phone: Whole blood hemoglobin A1c/t otal hemoglobin ratio (mass fraction)on 02-11-2021 HbA1c (Bld) [Mass fraction] 7.0 % 3.8-5.6 [facility] Work Phone: Comment on above: Normal < 5.7 % Predi abetic 5.7 - 6.4 % Diabetic >or= 6.5 % Please note range changes. 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 Left ventricular Ejection fraction 60 % Invalid Interpretation Code [employer] Work Phone: Chart Maintenanceon 07-31-19 17 HbA1c (Bld) [Mass fraction] 7.9 % Invalid Interpretation Code [facility] Work Phone: Office Visit: Consult- Typw 2 diabeteson 05-14-2016 Adolescent depression screening assessment Adolescent depression screening assessment Invalid Interpretation Code [facility] Work Phone: Adult depression screening assessment Adult depression screening assessment Invalid Interpretation Code [employer] Work Phone: Dietary management education, guidance, and counseling (procedure) yes Invalid Interpretation Code [facility] Work Phone: Documentation of current medications (procedure) Done Invalid Interpretation Code [employer] Work Phone: [phone] Fall risk assessment No Invalid Interpretation Code [employer] Work Phone: [phone] Tobacco smoking status Former Invalid Interpretation Code [facility] Work Phone: Tobacco use status [facility] Former smoker Invalid Interpretation Code [facility] Work Phone: Clinical Lists Update: 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 ABNORMAL Invalid Interpretation Code [facility] Work Phone: GE use only - for [employer] import when terms are not otherwise specified 396 ms Invalid Interpretation Code [facility] Work Phone: Heart rate 53 /min Invalid Interpretation Code [facility] Work Phone: Interpretation Atrial Bradycardia P:QRS - 1:1, Abnormal P axis, H Rate 53-Left axis -anterior fascicular block. ABNORMAL Invalid Interpretation Code [employer] Work Phone: [phone] P [place] -47 deg Invalid Interpretation Code [employer] Work Phone: [phone] P wave axis, electrocardiogram -47 deg Invalid Interpretation Code [facility] Work Phone: TN Interval 158 ms Invalid Interpretation Code [employer] Work Phone: [phone] TN interval, electrocardiogram 158 ms Invalid Interpretation Code [facility] Work Phone: QRS axis, electrocardiogram -34 deg Invalid Interpretation Code [facility] Work Phone: QRS Duration 112 ms Invalid Interpretation Code [employer] Work Phone: QRS duration, electrocardiogram 112 ms Invalid Interpretation Code [facility] Work Phone: QT Interval new path ms Invalid Interpretation Code [facility] Work Phone: QT interval, electrocardiogram new path ms Invalid Interpretation Code [place] [employer] [facility] Work Phone: QTc [place] 396 ms Invalid Interpretation Code [facility] Work Phone: T [place] -1 deg Invalid Interpretation Code [facility] Work Phone: T wave axis, electrocardiogram -1 deg Invalid Interpretation Code [place] [employer] [facility] Work Phone: Clinical Lists Update: 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 [employer] [email or web address] Work Phone: Alkaline phosphatase (ALP) 84 U/L Invalid Interpretation Code [place] [employer] [facility] Work Phone: ALP (Bld) [Catalytic activity/Vol] 84 U/L Invalid Interpretation Code [place] [employer] [email or web address] Work Phone: ALT [Catalytic activity/Vol] 25 U/L Invalid Interpretation Code [place] [employer] [facility] Work Phone: Anion gap 8 mmol/L Invalid Interpretation Code [place] [employer] [facility] Work Phone: Anion gap [Moles/Vol] 8 mmol/L Invalid Interpretation Code [place] [employer] [email or web address] Work Phone: AST [Catalytic activity/Vol] 22 U/L Invalid Interpretation Code [place] [employer] [email or web address] Work Phone: Bilirubin [Mass/Vol] 0.30 mg/dL Invalid Interpretation Code [place] [employer] [facility] Work Phone: Calcium [Mass/Vol] 8.4 mg/dL Low [facility] [employer] [email or web address] Work Phone: Chloride [Moles/Vol] 103 mmol/L Invalid Interpretation Code [place] [employer] [facility] Work Phone: Cholesterol [Mass/Vol] 99 mg/dL Invalid Interpretation Code [place] [employer] [email or web address] Work Phone: Cholesterol in HDL [Mass/Vol] 34 mg/dL Low [facility] Work Phone: Cholesterol in LDL [Mass/Vol] -12 mg/dL Low [facility] Work Phone: CO2 26.0 mmol/L Invalid Interpretation Code [facility] Work Phone: [phone] CO2 (BldV) [Partial pressure] 26.0 mmol/L Invalid Interpretation Code [facility] Work Phone: Creatinine [Mass/Vol] 1.24 mg/dL Invalid Interpretation Code [facility] Work Phone: Erythrocyte distribution width (RBC) [Ratio] 13.6 % Invalid Interpretation Code [facility] Work Phone: Erythrocyte distribution width Auto Ratio (RBC) 13.6 % Invalid Interpretation Code [facility] Work Phone: [phone] Erythrocytes (RBC) 4.26 10*6/uL Low [facility] Work Phone: [phone] Globulin 3.4 g/dL Invalid Interpretation Code [facility] Work Phone: [phone] globulin, serum 3.4 Invalid Interpretation Code [facility] Work Phone: Glucose [Mass/Vol] 164 mg/dL High [facility] Work Phone: Hematocrit (Bld) [Volume fraction] 37.1 % Low [facility] Work Phone: Hematocrit (HCT) 37.1 % Low [facility] Work Phone: [phone] Hemoglobin (Bld) [Mass/Vol] 12.4 g/dL Low [facility] Work Phone: Lipoprotein.pre-beta [Mass/Vol] 77 mg/dL High [facility] Work Phone: MCH 29.1 pg Invalid Interpretation Code [facility] Work Phone: [phone] MCH (RBC) [Entitic mass] 29.1 pg Invalid Interpretation Code [facility] Work Phone: MCHC (RBC) [Mass/Vol] 33.4 g/dL Invalid Interpretation Code [facility] Work Phone: MCHC mass conc (RBC) 33.4 g/dL Invalid Interpretation Code [facility] Work Phone: [phone] MCV 87.1 fL Invalid Interpretation Code [facility] Work Phone: [phone] MCV (RBC) [Entitic vol] 87.1 fL Invalid Interpretation Code [facility] Work Phone: Platelet mean volume (Bld) [Entitic vol] 10.3 fL Invalid Interpretation Code [facility] Work Phone: Platelets 179 10*3/mm3 Invalid Interpretation Code [facility] Work Phone: [phone] Platelets (Bld) [#/Vol] 179 10*3/uL Invalid Interpretation Code [facility] Work Phone: PMV by Johnathan 10.3 fL Invalid Interpretation Code [facility] Work Phone: [phone] Potassium [Moles/Vol] 4.5 mmol/L Invalid Interpretation Code [facility] Work Phone: Protein [Mass/Vol] 6.7 g/dL Invalid Interpretation Code [facility] Work Phone: RBC (Bld) [#/Vol] 4.26 10*6/uL Low [facility] Work Phone: Sodium [Moles/Vol] 137 mmol/L Invalid Interpretation Code [facility] Work Phone: Thyroid stimulating hormone (TSH) 1.92 u[iU]/mL Invalid Interpretation Code [facility] Work Phone: [phone] Triglyceride [Mass/Vol] 383 mg/dL High [facility] Work Phone: TSH Qn 1.92 m[IU]/L Invalid Interpretation Code [facility] Work Phone: Urea nitrogen [Mass/Vol] 22 mg/dL High [place] [employer] [email or web address] Work Phone: Urea nitrogen/Creatinine [Mass ratio] 17.7 mg/mg Invalid Interpretation Code [employer] [facility] Work Phone: WBC (Bld) [#/Vol] 6.4 10*3/uL Invalid Interpretation Code [employer] [facility] Work Phone: WBC (Leukocytes) 6.4 10*3/uL Invalid Interpretation Code [employer] Work Phone: basophils as percent of blood leukocytes, manual count 0.5 % Invalid Interpretation Code [employer] [facility] Work Phone: eosinophils as percent of blood leukocytes, manual count 1.9 % Invalid Interpretation Code [employer] [facility] Work Phone: Lymphocytes/100 leukocytes 26.8 % Invalid Interpretation Code [employer] Work Phone: Lymphocytes/100 WBC (Bld) 26.8 % Invalid Interpretation Code [employer] [facility] Work Phone: Monocytes/100 leukocytes 9.2 % Invalid Interpretation Code [employer] Work Phone: Monocytes/100 WBC (Bld) 9.2 % Invalid Interpretation Code [facility] Work Phone: neutrophils, band form as percent of blood leukocytes, manual count 61.4 % Invalid Interpretation Code [employer] [facility] Work Phone: Office Visit: MMMon 05-08-19 15 cardiac risk group C Invalid Interpretation Code [employer] [email or web address] Work Phone: General cardiovascular disease 10Y risk [#] [place].D'Agost[place] N/A Invalid Interpretation Code [facility] Work Phone: Office Visit: Consult- Typw 2 diabeteson 02-22-2014 Colonoscopy (procedure) Colonoscopy (procedure) Invalid Interpretation Code [employer] Work Phone: External Other: Preferred Me thod of Contacton 09-28-2013 methcontact secmsg Invalid Interpretation Code [employer] Work Phone: Patient's prefered method of contact secmsg Invalid Interpretation Code [facility] Work Phone: Clinical Lists Update: 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 03-20-2013 Albumin/Globulin [Mass ratio] 0.9 {ratio} Invalid Interpretation Code [facility] Work Phone: Replaced Document: [employer] E CG Observationson 10-06-2012 Pulse (Heart Rate) 376 ms Invalid Interpretation Code [facility] Work Phone: QT interval/QT interval (corrected for heart rate), electrocardiogram 376 ms Invalid Interpretation Code [facility] Work Phone: Culture, urine Bacteria identified Cx Nom (U) Positive [facility] Work Phone: Vital Signs Date Time Vital Sign Value Performing Clinician Facility 10-02-2024 11:34-0400 Body height 167.[address] Fredis Moon MD Work Phone: [facility] 10-02-2024 11:34-0400 Body mass index (BMI) [Ratio] 33 kg/m2 Dr. Fredis Moon MD Work Phone: [facility] 10-02-2024 11:34-0400 Body weight 92.[address] Fredis Moon MD Work Phone: [facility] 10-02-2024 11:34-0400 Diastolic blood pressure 52 mm[Hg] Dr. Fredis Moon MD Work Phone: [facility] 10-02-2024 11:34-0400 Heart rate 64 /min Dr. Fredis Moon MD Work Phone: [facility] 10-02-2024 11:34-0400 Respiratory rate 18 /min Dr. Fredis Moon MD Work Phone: [facility] 10-02-2024 11:34-0400 Systolic blood pressure 97 mm[Hg] Dr. Fredis Moon MD Work Phone: [facility] 09-29-2024 08:14-0400 Body weight 94.[address] Fredis Moon MD Work Phone: [facility] 09-11-2024 10:57-0400 Body height 167.[address] Fredis Moon MD Work Phone: [facility] 09-11-2024 10:57-0400 Body weight 93.[address] Fredis Moon MD Work Phone: 5(505)958-816706 [place] [address] 09-08-2024 13:37-0400 Body temperature 98 [degF] Dr. Fredis Moon MD Work Phone: 5(032)890-386806 [place] [address] 09-08-2024 13:37-0400 Diastolic blood pressure 63 mm[Hg] Dr. Fredis Moon MD Work Phone: 4(374)212-448580 [address] 09-08-2024 13:37-0400 Heart rate 54 /min Dr. Fredis Moon MD Work Phone: 5(076)325-694506 [place] [address] 09-08-2024 13:37-0400 Respiratory rate 18 /min Dr. Fredis Moon MD Work Phone: 0(245)538-419680 [address] 09-08-2024 13:37-0400 SaO2% (BldA) [Mass fraction] 98 % Dr. Fredis Moon MD Work Phone: [facility] 09-08-2024 13:37-0400 Systolic blood pressure 160 mm[Hg] Dr. Fredis Moon MD Work Phone: [facility] 09-08-2024 10:34-0400 Body mass index (BMI) [Ratio] 33.1 kg/m2 Dr. Fredis Moon MD Work Phone: [facility] 09-08-2024 10:34-0400 Body weight 93.[address] Fredis Moon MD Work Phone: [facility] 09-08-2024 09:59-0400 Body height 167.[address] Fredis Moon MD Work Phone: [facility] 09-01-2024 08:23-0400 Body weight 93.[address] Fredis Moon MD Work Phone: 5(306)812-343445 [place] [address] 08-03-2024 07:09-0400 Body height 167.[address] Fredis Moon MD Work Phone: 2(742)815-491445 [place] [address] 08-03-2024 07:09-0400 Body weight 94.[address] Fredis Moon MD Work Phone: 8(111)084-193545 [place] [address] 07-06-2024 08:22-0400 Body height 167.[address] Fredis Moon MD Work Phone: 8(457)397-800145 [place] [address] 07-06-2024 08:22-0400 Body mass index (BMI) [Ratio] 33.2 kg/m2 Dr. Fredis Moon MD Work Phone: 0(919)447-182545 [place] [address] 07-06-2024 08:22-0400 Body weight 93.[address] Fredis Moon MD Work Phone: 7(901)920-939045 [place] [address] 07-06-2024 08:22-0400 Diastolic blood pressure 72 mm[Hg] Dr. Fredis Moon MD Work Phone: 0(985)621-815145 [place] [address] 07-06-2024 08:22-0400 Heart rate 59 /min Dr. Fredis Moon MD Work Phone: 6(471)587-092045 [place] [address] 07-06-2024 08:22-0400 Respiratory rate 18 /min Dr. Fredis Moon MD Work Phone: 5(352)862-984845 [place] [address] 07-06-2024 08:22-0400 SaO2% (BldA) [Mass fraction] 97 % Dr. Fredis Moon MD Work Phone: 3(121)646-287145 [place] [address] 07-06-2024 08:22-0400 Systolic blood pressure 125 mm[Hg] Dr. Fredis Moon MD Work Phone: 0(330)646-112445 [place] [address] 07-04-2024 10:21-0400 Body mass index (BMI) [Ratio] 34.3 kg/m2 Dr. Fredis Moon MD Work Phone: 8(498)953-286145 [place] [address] 07-04-2024 09:41-0400 Diastolic blood pressure 50 mm[Hg] Dr. Fredis Moon MD Work Phone: 2(653)095-323545 [place] [address] 07-04-2024 09:41-0400 Heart rate 56 /min Dr. Fredis Moon MD Work Phone: [facility] 07-04-2024 09:41-0400 SaO2% (BldA) [Mass fraction] 97 % Dr. Fredis Moon MD Work Phone: [facility] 07-04-2024 09:41-0400 Systolic blood pressure 122 mm[Hg] Dr. Fredis Moon MD Work Phone: [facility] 07-04-2024 09:28-0400 Body weight 96.[address] Fredis Moon MD Work Phone: [facility] 06-22-2024 11:18-0400 Diastolic blood pressure 67 mm[Hg] Miguel Angel Shaqsky ERP ENGINEER - WATER PLANT PUMP OPERATOR SUPERVISOR Work Phone: [facility] 06-22-2024 11:18-0400 Heart rate 60 /min Miguel Angel Evangelinajuan carlos ERP ENGINEER - WATER PLANT PUMP OPERATOR SUPERVISOR Work Phone: [facility] 06-22-2024 11:18-0400 Systolic blood pressure 129 mm[Hg] Miguel Angel Evangelinay ERP ENGINEER - WATER PLANT PUMP OPERATOR SUPERVISOR Work Phone: [facility] 06-22-2024 11:13-0400 Body mass index (BMI) [Ratio] 32.42 kg/m2 Miguel Angel Evangelinay ERP ENGINEER - WATER PLANT PUMP OPERATOR SUPERVISOR Work Phone: [facility] 06-22-2024 11:13-0400 Body weight 93.89 kg Miguel Angel Evangelinay ERP ENGINEER - WATER PLANT PUMP OPERATOR SUPERVISOR Work Phone: [facility] 06-14-2024 10:54-0400 Body temperature 98.8 [degF] Dr. Fredis Moon MD Work Phone: [facility] 06-14-2024 10:54-0400 Diastolic blood pressure 46 mm[Hg] Dr. Fredis Moon MD Work Phone: [facility] 06-14-2024 10:54-0400 Heart rate 52 /min Dr. Fredis Moon MD Work Phone: [facility] 06-14-2024 10:54-0400 Respiratory rate 18 /min Dr. Fredis Moon MD Work Phone: [facility] 06-14-2024 10:54-0400 SaO2% (BldA) [Mass fraction] 98 % Dr. Fredis Moon MD Work Phone: 6(706)390-076106 [place] [address] 06-14-2024 10:54-0400 Systolic blood pressure 139 mm[Hg] Dr. Fredis Moon MD Work Phone: 4(305)636-369506 [place] [address] 06-13-2024 10:00-0400 Body mass index (BMI) [Ratio] 32.8 kg/m2 Dr. Fredis Moon MD Work Phone: 1(118)738-232106 [place] [address] 06-13-2024 10:00-0400 Body weight 92.[address] Fredis Moon MD Work Phone: 0(398)936-221545 [place] [address] 06-07-2024 14:29-0400 Body height 167.[address] Fredis Moon MD Work Phone: 1(097)212-604245 [place] [address] 06-07-2024 14:29-0400 Body weight 91.[address] Fredis Moon MD Work Phone: 3(914)834-503045 [place] [address] 06-07-2024 08:31-0400 Heart rate 51 /min Dr. Fredis Moon MD Work Phone: 6(143)668-346945 [place] [address] 06-07-2024 08:26-0400 Body temperature 97.3 [degF] Dr. Fredis Moon MD Work Phone: 1(585)202-250406 [place] [address] 06-07-2024 08:26-0400 Diastolic blood pressure 74 mm[Hg] Dr. Fredis Moon MD Work Phone: 3(529)486-612806 [place] [address] 06-07-2024 08:26-0400 Respiratory rate 17 /min Dr. Fredis Moon MD Work Phone: 6(511)321-620306 [place] [address] 06-07-2024 08:26-0400 SaO2% (BldA) [Mass fraction] 95 % Dr. Fredis Moon MD Work Phone: [facility] 06-07-2024 08:26-0400 Systolic blood pressure 109 mm[Hg] Dr. Fredis Moon MD Work Phone: 4(897)111-709306 [place] [address] 06-06-2024 10:00-0400 Body mass index (BMI) [Ratio] 32.7 kg/m2 Dr. Fredis Moon MD Work Phone: 4(300)606-841106 [place] [address] 05-22-2024 22:00-0400 Diastolic blood pressure 55 mm[Hg] Dr. Fredis Moon MD Work Phone: 5(928)499-748406 [place] [address] 05-22-2024 22:00-0400 Heart rate 67 /min Dr. Fredis Moon MD Work Phone: 9(036)527-458245 [place] [address] 05-22-2024 22:00-0400 Systolic blood pressure 126 mm[Hg] Dr. Fredis Moon MD Work Phone: 5(971)041-991645 [place] [address] 05-22-2024 16:48-0400 Body mass index (BMI) [Ratio] 34.5 kg/m2 Dr. Fredis Moon MD Work Phone: 1(464)709-468606 [place] [address] 05-22-2024 16:48-0400 Body weight 97.[address] Fredis Moon MD Work Phone: 1(057)561-415945 [place] [address] 05-22-2024 15:30-0400 Body temperature 97 [degF] Dr. Fredis Moon MD Work Phone: 4(114)790-666745 [place] [address] 05-22-2024 15:30-0400 Respiratory rate 16 /min Dr. Fredis Moon MD Work Phone: 5(059)279-765406 [place] [address] 05-22-2024 15:30-0400 SaO2% (BldA) [Mass fraction] 97 % Dr. rFedis Moon MD Work Phone: 5(252)983-793145 [place] [address] 05-17-2024 12:54-0400 Body height 167.[address] Fredis Moon MD Work Phone: 8(287)224-677045 [place] [address] 05-16-2024 07:00-0400 Body mass index (BMI) [Ratio] 32.61 kg/m2 Daysi Velasco MD Work Phone: [facility] [employer] 05-16-2024 07:00-0400 Body weight 94.44 kg Daysi Velasco MD Work Phone: [facility] [employer] 05-16-2024 04:14-0400 Body temperature 97 [degF] Daysi Velasco MD Work Phone: [facility] [employer] 05-16-2024 04:14-0400 Diastolic blood pressure 49 mm[Hg] Daysi Velasco MD Work Phone: [facility] [employer] 05-16-2024 04:14-0400 Heart rate 66 /min Daysijojo Velasco MD Work Phone: [facility] [employer] 05-16-2024 04:14-0400 Respiratory rate 17 /min Daysi Velasco MD Work Phone: [facility] [employer] 05-16-2024 04:14-0400 SaO2% (BldA) [Mass fraction] 100 % Daysi Velasco MD Work Phone: [facility] [employer] 05-16-2024 04:14-0400 Systolic blood pressure 130 mm[Hg] Daysi Velasco MD Work Phone: [facility] [employer] 05-11-2024 08:32-0400 Body height 170.2 cm Daysi Velasco MD Work Phone: [facility] [employer] 05-11-2024 07:51-0400 SaO2% (BldA) [Mass fraction] 98.5 % Daysi Velasco MD Work Phone: [facility] [employer] 05-10-2024 22:27-0400 SaO2% (BldA) [Mass fraction] 98.2 % Daysi Velasco MD Work Phone: [facility] [employer] 05-10-2024 17:52-0400 SaO2% (BldA) [Mass fraction] 97.1 % Daysi Velasco MD Work Phone: [facility] [employer] 05-10-2024 14:12-0400 SaO2% (BldA) [Mass fraction] 98.5 % Daysi Velasco MD Work Phone: [facility] 05-10-2024 11:35-0400 SaO2% (BldA) [Mass fraction] 98.8 % Daysi Velasco MD Work Phone: [facility] 04-25-2024 11:46-0500 Diastolic blood pressure 68 mm[Hg] Daysi Velasco MD Work Phone: [facility] 04-25-2024 11:46-0500 Systolic blood pressure 151 mm[Hg] Daysi Velasco MD Work Phone: [facility] 04-25-2024 11:43-0500 Body height 169.5 cm Daysi Velasco MD Work Phone: [facility] 04-25-2024 11:43-0500 Body mass index (BMI) [Ratio] 32.98 kg/m2 Daysi Velasco MD Work Phone: [facility] 04-25-2024 11:43-0500 Body weight 94.8 kg Daysi Velasco MD Work Phone: [facility] 04-25-2024 11:43-0500 Heart rate 57 /min Daysi Velasco MD Work Phone: [facility] 04-24-2024 08:50-0500 Body weight 93.[address] Fredis Moon MD Work Phone: [facility] 04-24-2024 08:49-0500 Body mass index (BMI) [Ratio] 33.2 kg/m2 Dr. Fredis Moon MD Work Phone: [facility] 03-23-2024 08:09-0500 Body mass index (BMI) [Ratio] 34.3 kg/m2 Dr. Fredis Moon MD Work Phone: [facility] 03-23-2024 08:09-0500 Body weight 96.[address] Fredis Moon MD Work Phone: [facility] 03-23-2024 08:09-0500 Diastolic blood pressure 66 mm[Hg] Dr. Fredis Moon MD Work Phone: [facility] 03-23-2024 08:09-0500 Heart rate 63 /min Dr. Fredis Moon MD Work Phone: [facility] 03-23-2024 08:09-0500 Respiratory rate 18 /min Dr. Fredis Moon MD Work Phone: [facility] 03-23-2024 08:09-0500 Systolic blood pressure 118 mm[Hg] Dr. Fredis Moon MD Work Phone: 5(420)744-375006 [place] [address] 04-05-2023 14:27-0500 Body height 167.[address] Fredis Moon Work Phone: 7(452)380-295445 [place] [address] 04-05-2023 14:27-0500 Body mass index (BMI) [Ratio] 34.3 kg/m2 Dr. Fredis Moon Work Phone: 6(189)377-729706 [place] [address] 04-05-2023 14:27-0500 Body weight 96.[address] Fredis Moon Work Phone: 7(278)905-516780 [address] 04-05-2023 14:27-0500 Diastolic blood pressure 71 mm[Hg] Dr. Fredis Moon Work Phone: 7(381)863-565606 [place] [address] 04-05-2023 14:27-0500 Heart rate 57 /min Dr. Fredis Moon Work Phone: [facility] 04-05-2023 14:27-0500 Respiratory rate 18 /min Dr. Fredis Moon Work Phone: [facility] 04-05-2023 14:27-0500 SaO2% (BldA) [Mass fraction] 99 % Dr. Fredis Moon Work Phone: [facility] 04-05-2023 14:27-0500 Systolic blood pressure 135 mm[Hg] Dr. Fredis Moon Work Phone: [facility] 12-30-2022 23:01-0500 Diastolic blood pressure 61 mm[Hg] Dr. Fredis Moon Work Phone: 9(035)295-129306 [place] [address] 12-30-2022 23:01-0500 Heart rate 60 /min Dr. Fredis Moon Work Phone: [facility] 12-30-2022 23:01-0500 Respiratory rate 15 /min Dr. Fredis Moon Work Phone: [facility] 12-30-2022 23:01-0500 SaO2% (BldA) [Mass fraction] 96 % Dr. Fredis Moon Work Phone: 0(696)160-942906 [place] [address] 12-30-2022 23:01-0500 Systolic blood pressure 132 mm[Hg] Dr. Fredis Moon Work Phone: 5(972)922-066806 [place] [address] 12-30-2022 20:27-0500 Body height 167.[address] Fredis Moon Work Phone: 8(941)666-317745 [place] [address] 12-30-2022 20:27-0500 Body mass index (BMI) [Ratio] 32.5 kg/m2 Dr. Fredis Moon Work Phone: 4(607)386-164006 [place] [address] 12-30-2022 20:27-0500 Body temperature 97.9 [degF] Dr. Fredis Moon Work Phone: 3(919)515-942180 [address] 12-30-2022 20:27-0500 Body weight 91.[address] Fredis Moon Work Phone: 3(731)233-737545 [place] [address] 01-21-2022 14:21-0500 Body height 170.[address] Fredis Moon Work Phone: 0(670)349-492780 [address] 01-21-2022 14:21-0500 Body mass index (BMI) [Ratio] 33 kg/m2 Dr. Fredis Moon Work Phone: [facility] 01-21-2022 14:21-0500 Body weight 95.[address] Fredis Moon Work Phone: 7(335)756-541206 [place] [address] 01-21-2022 14:21-0500 Diastolic blood pressure 68 mm[Hg] Dr. Fredis Moon Work Phone: 0(807)[phone] [place] [address] 01-21-2022 14:21-0500 Heart rate 64 /min Dr. Fredis Moon Work Phone: 7(317)[phone] [place] [address] 01-21-2022 14:21-0500 Respiratory rate 18 /min Dr. Fredis Moon Work Phone: [facility] 01-21-2022 14:21-0500 Systolic blood pressure 116 mm[Hg] Dr. Fredis Moon Work Phone: [facility] 05-29-2021 09:49-0400 Body temperature 97.81 [degF] Yoselin Khan APRN.WATER PLANT PUMP OPERATOR SUPERVISOR Work Phone: [facility] 05-29-2021 09:49-0400 Body weight 91.44 kg Yoselin Khan APRN.WATER PLANT PUMP OPERATOR SUPERVISOR Work Phone: [facility] 05-29-2021 09:49-0400 Diastolic blood pressure 74 mm[Hg] Yoselin Khan APRN.WATER PLANT PUMP OPERATOR SUPERVISOR Work Phone: [facility] 05-29-2021 09:49-0400 Heart rate 59 /min Yoselin Khan APRN.WATER PLANT PUMP OPERATOR SUPERVISOR Work Phone: [facility] 05-29-2021 09:49-0400 Respiratory rate 18 /min Yoselin Khan APRN.WATER PLANT PUMP OPERATOR SUPERVISOR Work Phone: [facility] 05-29-2021 09:49-0400 SaO2% (BldA) [Mass fraction] 98 % Yoselin Khan APRN.WATER PLANT PUMP OPERATOR SUPERVISOR Work Phone: [facility] 05-29-2021 09:49-0400 Systolic blood pressure 136 mm[Hg] Yoselin Khan APRN.WATER PLANT PUMP OPERATOR SUPERVISOR Work Phone: [facility] 05-23-2021 11:24-0400 Body temperature 97.5 [degF] Alix Valle APRN.WATER PLANT PUMP OPERATOR SUPERVISOR Work Phone: [facility] 05-23-2021 11:24-0400 Body weight 93.35 kg Alix Valle APRN.WATER PLANT PUMP OPERATOR SUPERVISOR Work Phone: [facility] 05-23-2021 11:24-0400 Diastolic blood pressure 68 mm[Hg] Alix Valle APRN.WATER PLANT PUMP OPERATOR SUPERVISOR Work Phone: [facility] 05-23-2021 11:24-0400 Heart rate 67 /min Alix Praisler-Wood ERP ENGINEER.WATER PLANT PUMP OPERATOR SUPERVISOR Work Phone: [facility] 05-23-2021 11:24-0400 Respiratory rate 18 /min Alix Praisler-Wood ERP ENGINEER.WATER PLANT PUMP OPERATOR SUPERVISOR Work Phone: [facility] 05-23-2021 11:24-0400 SaO2% (BldA) [Mass fraction] 96 % Alix Praisler-Wood ERP ENGINEER.WATER PLANT PUMP OPERATOR SUPERVISOR Work Phone: [facility] 05-23-2021 11:24-0400 Systolic blood pressure 118 mm[Hg] Alix Praisler-Wood ERP ENGINEER.WATER PLANT PUMP OPERATOR SUPERVISOR Work Phone: [facility] 12-21-2016 13:02-0400 Body height 170.18 cm Hailey Huerta [facility] Work Phone: 12-21-2016 13:02-0400 Body mass index (BMI) [Ratio] 29.29 kg/m2 Chantalle Deanna [facility] Work Phone: 12-21-2016 13:02-0400 Body weight 84.82 kg Rosendotalle Deanna [facility] Work Phone: 12-21-2016 13:02-0400 Diastolic blood pressure 58 mm[Hg] Rosendotalle Deanna [facility] Work Phone: 12-21-2016 13:02-0400 Heart rate 60 /min Rosendotalle Deanna [facility] Work Phone: 12-21-2016 13:02-0400 Respiratory rate 16 /min Chantalle Deanna [facility] Work Phone: 12-21-2016 13:02-0400 Systolic blood pressure 110 mm[Hg] Rosendotalle Deanna [facility] Work Phone: 05-14-2016 08:57-0400 Body height 170.18 cm Rosa Harris Work Phone: [email or web address] Work Phone: 05-14-2016 08:57-0400 Body mass index (BMI) [Ratio] 30.63 kg/m2 Rosa Parekhn Work Phone: [facility] Work Phone: 05-14-2016 08:57-0400 Body surface area Derived from formula 2 m2 Rosa Parekhn Work Phone: [facility] Work Phone: 05-14-2016 08:57-0400 Body temperature 98.3 [degF] Rosa Parekhn Work Phone: [facility] Work Phone: 05-14-2016 08:57-0400 Body temperature 98.29 [degF] Rosa Fernandezalen Work Phone: [facility] Work Phone: 05-14-2016 08:57-0400 Body weight 88.72 kg Rosa Paerkhn Work Phone: [facility] Work Phone: 05-14-2016 08:57-0400 Diastolic blood pressure 67 mm[Hg] Rosa Fernandezalen Work Phone: [facility] Work Phone: 05-14-2016 08:57-0400 Heart rate 63 /min Rosa Parekhn Work Phone: [facility] Work Phone: 05-14-2016 08:57-0400 Respiratory rate 16 /min Rosa Fernandezalen Work Phone: [facility] Work Phone: 05-14-2016 08:57-0400 SaO2% (BldA) [Mass fraction] 96 % Rosa Fernandezalen Work Phone: [facility] Work Phone: 05-14-2016 08:57-0400 Systolic blood pressure 111 mm[Hg] Rosa Harris Work Phone: [facility] Work Phone: 05-14-2016 08:57-0400 Weight 88.72 kg Charity Landis RN [facility] Work Phone: Encounters Encounter Date Encounter Type Care Provider Facility Start: 03-15-2025 ambulatory Fredis Chi Red Facility:[facility] Start: 01-05-2025 ambulatory Fredis Chi Red Facility:[facility] Start: 12-27-2024 ambulatory Wagner H Roof VERTICAL BORER Facility :[facility] Start: 12-25-2024 End: 12-25-2024 ambulatory Wagner H Roof VERTICAL BORER Facility:[facility] Start: 12-20-2024 End: 12-20-2024 ambulatory Fredis Chi Red Facility:[facility] Start: 12-13-2024 End: 12-13-2024 ambulatory Fredis Chi Red Facility:[facility] Start: 12-11-2024 End: 12-11-2024 ambulatory Fredis Chi Red Facility:[facility] Start: 11-02-2024 ambulatory Daysi Velasco Facility:[facility] Start: 10-09-2024 End: 10-09-2024 ambulatory Barron jaziel Facility:[facility] Start: 10-09-2024 End: 10-09-[address] Barron Olson DPM -Laboratory Specimen Work Phone: Start: 10-09-2024 End: 10-09-2024 ambulatory Barron Olson Facility:[facility] Start: 10-04-2024 End: 10-22-[address] Fredis Moon MD Work Phone: -Cardiac Rehab Start: 10-04-2024 End: 10-22-[address] Daysi Velasco MD -Cardiac Rehab Work Phone: Start: 10-04-[address] Daysi peoples MD -Cardiac Rehab Work Phone: Start: 10-02-2024 End: 10-02-[address] Fredis Moon MD Work Phone: -Laboratory Specimen Start: 10-02-2024 End: 10-02-[address] Fredis Moon MD -Laboratory Specimen Work Phone: Start: 10-02-2024 End: 10-02-[address] Fredis Moon MD Work Phone: -Laboratory Start: 10-02-2024 End: 10-02-[address] Fredis Moon MD -Laboratory Work Phone: Start: 10-02-2024 End: 10-02-2024 Patient encounter procedure Wagner BROWN -[facility] Work Phone: Start: 10-02-2024 End: 10-02-[address] Fredis Moon MD Work Phone: -[facility] Start: 10-02-[address] Daysi peoples MD -Cardiac Rehab Work Phone: Start: 10-02-2024 End: 10-02-2024 ambulatory Fredis Moon Facility:[facility] Start: 09-20-2024 End: 09-21-[address] Fredis Moon MD Work Phone: -Cardiac Rehab Start: 09-20-2024 End: 09-21-[address] Daysi Velasco MD -Cardiac Rehab Work Phone: Start: 09-18-[address] Daysi peoples MD -Cardiac Rehab Work Phone: Start: 09-14-2024 ambulatory Fredis Moon Facility:[facility] Start: 09-12-2024 End: 09-12-[address] Fredis Moon MD Work Phone: -Laboratory Specimen Start: 09-12-2024 End: 09-12-[address] Fredis Moon MD -Laboratory Specimen Work Phone: Start: 09-12-2024 End: 09-12-2024 ambulatory Fredis Silvano Moon Facility:[facility] Start: 09-08-2024 End: 09-08-2024 Emergency department patient visit Dr. Fredis Moon MD Work Phone: -Emergency Department Work Phone: Start: 09-08-[address] Daysi peoples MD -Cardiac Rehab Work Phone: Start: 09-07-2024 End: 09-07-[address] Fredis Moon MD -Laboratory Work Phone: Start: 09-07-2024 End: 09-07-[facility] Start: 08-21-2024 End: 08-21-[address] Fredis Moon MD Work Phone: -Cardiac Rehab Start: 08-21-2024 End: 08-21-[address] Daysi Velasco MD -Cardiac Rehab Work Phone: Start: 07-24-2024 End: 07-24-2024 ambulatory Chante Hong RN [facility] Start: 07-21-2024 End: 07-22-[address] Fredis Mono MD Work Phone: [facility] Work Phone: Start: 07-21-2024 End: 07-22-[address] Daysi Velasco MD -Cardiac Rehab Work Phone: Start: 07-07-[address] Daysi peoples MD -Cardiac Rehab Work Phone: Start: 07-06-2024 End: 07-06-2024 Patient encounter procedure Mi BROWN -[facility] Work Phone: Start: 07-06-2024 End: 07-06-[address] Fredis Moon MD Work Phone: [facility] Work Phone: Start: 07-05-2024 End: 07-05-2024 Postop follow up visit related to original px Miguel Angel Handy ERP ENGINEER - WATER PLANT PUMP OPERATOR SUPERVISOR Work Phone: 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 Daysi peoples MD -Cardiac Rehab Work Phone: Start: 07-04-2024 End: 07-04-[address] Fredis Moon MD Work Phone: [facility] Work Phone: Start: 07-04-2024 End: 07-04-[address] Daysi Velasco MD -Cardiac Rehab Work Phone: Start: 07-04-2024 End: 07-04-2024 ambulatory Daysi Velasco Facility:[facility] Start: 06-27-2024 End: 06-27-2024 ambulatory Chante Hong RN [facility] Start: 06-23-2024 End: 06-23-2024 Telephone encounter Daysi Velasco MD Work Phone: [facility] [place] Comment on above: Orders Start: 06-22-2024 End: 06-22-2024 ambulatory MIGUEL ANGEL DUMONTJuan Carlos [facility] Start: 06-22-2024 End: 06-22-2024 Postop follow up visit related to original px Miguel Angel Handy ERP ENGINEER - WATER PLANT PUMP OPERATOR SUPERVISOR Work Phone: 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 Daysi hall MD -[facility] Start: 06-02-2024 End: 06-02-[address] Fredis Moon MD Work Phone: [facility] Work Phone: Start: 06-02-2024 End: 06-02-[address] 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 Daysi hall MD -[facility] Start: 05-18-2024 End: 05-18-[address] Fredis Moon MD Work Phone: [facility] Work Phone: Start: 05-18-2024 End: 05-18-[address] Fredis Moon MD -Cardiovascular Services Work Phone: Start: 05-18-2024 End: 05-18-2024 ambulatory Fredis Moon Facility:[facility] Start: 05-16-2024 End: 06-14-2024 Evaluation and management of inpatient Dr. Fredis Moon MD -Transitional Care Unit Start: 05-10-2024 End: 05-16-2024 Encounter for other preprocedural examination DAYSI VELASCO [facility] Start: 05-10-2024 End: 05-16-2024 Evaluation and management of inpatient Daysi Velasco MD Work Phone: [facility] Cardiac Thoracic Vascular Intensive Care Unit CTV ICU T1 Start: 05-10-2024 End: 05-16-2024 Preoperative state Daysi Velasco MD Work Phone: [facility] Start: 05-04-2024 End: 05-04-2024 Subsequent hospital visit by physician Ach Xr Exam Room 1 [facility] X-Ray Comment on above: Arrived Start: 05-04-2024 End: 05-04-2024 ambulatory AZAM MCBRIDE [facility] Start: 05-04-2024 End: 05-04-2024 ambulatory DAYSI VELASCO [facility] Start: 04-25-2024 End: 04-25-2024 Admission to same day surgery center Carter Atkinson CNP Work Phone: [facility] [place] Comment on above: CAD in [place] artery (Primary Dx); Preoperative clearance; 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 (CODE) Start: 04-25-2024 End: 04-25-2024 Preoperative state Carter Atkinson CNP Work Phone: [facility] Work Phone: Start: 04-25-2024 End: 04-25-2024 Telephone encounter Daysi Velasco MD Work Phone: [facility] [place] Comment on above: Surgery Scheduling Start: 04-25-2024 End: 04-25-2024 Office outpatient new 60 minutes Daysi Velasco MD Work Phone: 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 [place] Start: 04-24-2024 Non-patient / Non-visit Dr. Samson bundy MD -[facility] Start: 04-24-2024 ambulatory Samson Esteban Facility:[facility] Start: 04-24-2024 End: 04-24-2024 Admission to same day surgery center Dr. Samson Elder MD -Jet Inspector/Special Procedures Work Phone: Start: 04-24-2024 End: 04-24-2024 ambulatory Samson Esteban Facility:[facility] Start: 04-21-2024 ambulatory Samson Esteban Facility:[facility] Start: 04-21-2024 Non-patient / Non-visit Corky Connolly -[facility] Start: 04-20-2024 Non-patient / Non-visit Dr. Samson bundy MD -[facility] Start: 04-20-2024 ambulatory Samson Esteban Facility:[facility] Start: 04-17-2024 ambulatory Daysi Monterroso [facility] Start: 04-17-2024 Non-patient / Non-visit Dr. Daysi hall MD -[facility] Start: 04-17-2024 End: 04-17-[address] Samson Elder MD -Cardiovascular Services Work Phone: Start: 04-17-2024 End: 04-17-2024 ambulatory Samson Esteban Facility:[facility] Start: 03-23-2024 End: 03-23-[address] Samson Elder MD -[facility] Work Phone: Start: 03-23-2024 End: 03-23-2024 ambulatory Samson Esteban Facility:[facility] Start: 03-07-2024 End: 03-07-[address] Fredis Moon MD -Laboratory, Phy Office 3rd [facility] Start: 03-07-2024 End: 03-07-2024 ambulatory Fredis Moon Facility:[facility] Start: 01-21-2024 End: 01-21-2024 ambulatory Yovanny Dempsey Facility:[facility] Start: 06-02-2023 End: 06-02-[address] Fredis Moon Work Phone: [facility] Work Phone: Start: 06-02-2023 End: 06-02-[address] Fredis Moon Work Phone: [facility] Work Phone: Start: 06-01-2023 End: 06-01-[address] rFedis Moon Work Phone: [facility] Work Phone: Start: 06-01-2023 End: 06-01-[address] [facility] Moon [facility] Start: 04-05-2023 End: 04-05-[address] Fredis Moon Work Phone: [facility] Work Phone: Start: 04-05-2023 End: 04-05-[address] Fredis Moon Work Phone: [facility] Work Phone: Start: 03-02-2023 End: 03-02-[address] Fredis Moon Work Phone: [facility] Work Phone: Start: 03-02-2023 End: 03-02-[address] Fredis Moon Work Phone: [facility], [address] Start: 01-15-2023 End: 01-15-[address] Fredis Moon Work Phone: [facility] Work Phone: Start: 01-15-2023 End: 01-15-[address] Fredis Moon Work Phone: [facility]: Start: 12-30-2022 End: 12-30-2022 Emergency department patient visit Dr. Fredis Moon Work Phone: [facility] Work Phone: Start: 12-03-2022 Non-patient / Non-visit Dr. Mir Moon Work Phone: [facility] Start: 12-03-2022 End: 12-03-[address] Fredis Moon Work Phone: [facility] Work Phone: Start: 12-03-2022 End: 12-03-2022 [facility] Work [facility]: Start: 11-30-2022 End: 11-30-2022 ambulatory [facility] Work Phone: Start: 11-30-2022 End: 11-30-2022 [facility] Start: 08-27-2022 End: 08-27-2022 ambulatory [facility] Work Phone: Start: 08-27-2022 End: 08-27-2022 [facility] Flr Start: 07-10-2022 End: 07-10-2022 ambulatory [facility] Work Phone: Start: 07-10-2022 End: 07-10-2022 [facility] Start: 04-30-2022 End: 04-30-[address] Fredis Moon Work Phone: [facility] Work Phone: Start: 04-30-2022 End: 04-30-[address] Fredis Moon Work Phone[facility] Flr Start: 02-18-2022 End: 02-18-[address] Fredis Moon Work Phone: [facility]-Pulmonary Services/Neurology Start: 01-29-2022 End: 01-29-[address] Fredis Moon Work Phone: [facility] Fl[facility] Start: 01-21-2022 End: 01-21-[address] Fredis Moon Work Phone: [facility] Start: 01-14-2022 End: 01-14-2022 ambulatory [facility] Work Phone: Start: 01-14-2022 End: 01-14-2022 Patient encounter procedure [facility]-Laboratory Start: 12-04-2021 End: 12-04-2021 ambulatory [facility] Work Phone: Start: 12-04-2021 End: 12-04-2021 [facility] Fl[facility] Start: 10-30-2021 End: 10-30-2021 ambulatory [facility] Work Phone: Start: 10-30-2021 End: 10-30-2021 [facility] Fl[facility] Start: 09-03-2021 End: 09-03-2021 Patient encounter procedure [facility]-Pulmonary Services/Neurology Start: 08-15-2021 End: 08-15-2021 [facility] Fl[facility] Start: 07-11-2021 End: 07-11-2021 Patient encounter procedure [facility]-Laboratory Start: 05-29-2021 End: 05-29-2021 Patient encounter procedure Yoselin Khan APRN.WATER PLANT PUMP OPERATOR SUPERVISOR Work Phone: [facility] Comment on above: Close exposure to [place] VID-19 virus (Primary Dx) Start: 05-23-2021 End: 05-23-2021 Patient encounter procedure Alix Valle APRN.WATER PLANT PUMP OPERATOR SUPERVISOR Work Phone: [facility] Comment on above: Close exposure to [place] VID-19 virus (Primary Dx) Start: 05-14-2021 End: 05-14-2021 Patient encounter procedure [facility]-Pulmonary Services/Neurology Start: 05-12-2021 End: 05-12-2021 [facility] Fl[facility] Start: 04-04-2021 End: 04-04-2021 Patient encounter procedure [facility]-Laboratory Start: 02-11-2021 [facility] Fl[facility] Start: 01-20-2021 Patient encounter procedure [facility]-Sleep Lab Procedures Date Procedure Procedure Detail Performing Clinician Start: 10-09-2024 Gram stain microscopy Matilde Moon MD Work Phone: Start: 10-09-2024 End: 10-09-2024 Microbial culture, routine Dr. Fredis Moon MD Work Phone: Start: 10-02-2024 Bacterial nucleic ac id assay Dr. Fredis Moon MD Work Phone: Start: 10-02-[address] Heidy Moon MD Work Phone: Start: 10-02-[address] Sp Moon MD Work Phone: Start: 10-02-[address] Fredis Moon MD Work Phone: Start: 10-02-2024 Gram stain microscopy Matilde Moon MD Work Phone: Start: 10-02-2024 End: 10-02-2024 Microbial culture, routine Dr. Fredis Moon MD Work Phone: Start: 09-12-2024 Urine microalbumin/creatinine ratio measurement Dr. [...] panel calcium total Miguel Angel Jensen Rozina ERP ENGINEER - W[employer] PLANT PUMP OPERATOR SUPERVISOR Work Phone: Start: 05-16-2024 Radiologic exam ches t single view Miguel Angellópez Handy ERP ENGINEER - WATER PLANT PUMP OPERATOR SUPERVISOR Work Phone: Start: 05-15-2024 Glucose quantitative blood [...] ches t single view Miguel Angel Handy ERP ENGINEER - WATER PLANT PUMP OPERATOR SUPERVISOR Work Phone: Start: 05-15-2024 Basic metabolic pane l calcium total Miguel Angel VickySp Handy ERP ENGINEER - WATER PLANT PUMP OPERATOR SUPERVISOR Work Phone: Start: 05-14-2024 Glucose quantitative blood xcpt reagent strip Daysi Velasco MD Work Phone: Start: 05-14-2024 Glucose quantitative blood xcpt reagent strip Daysi Velasco MD Work Phone: Start: 05-14-2024 Glucose quantitative blood xcpt reagent strip Daysi Velasco MD Work Phone: Start: 05-14-2024 Radiologic exam ches t single view Miguel Angel Handy ERP ENGINEER - WATER PLANT PUMP OPERATOR SUPERVISOR Work Phone: Start: 05-14-2024 Glucose quantitative blood xcpt reagent strip Daysi Velasco MD Work Phone: Start: 05-14-2024 Basic metabolic pane l calcium total Miguel Angel Handy ERP ENGINEER - [employer] PU[employer] OPERATOR SUPERVISOR Work Phone: Start: 05-13-2024 Glucose quantitative blood [...] ches t single view Miguel Angel Handy ERP ENGINEER - [employer] OPERATOR SUPERVISOR Work Phone: Start: 05-13-2024 Basic metabolic pane l calcium total Miguel Angel Handy ERP ENGINEER - [employer] OPERATOR SUPERVISOR Work Phone: Start: 05-12-2024 Glucose quantitative blood xcpt reagent strip Daysi Velasco MD Work Phone: Start: 05-12-2024 Glucose quantitative blood xcpt reagent strip Daysi Velasco MD Work Phone: Start: 05-12-2024 Glucose quantitative blood xcpt reagent strip Daysi Velasco MD Work Phone: Start: 05-12-2024 Radiologic exam ches t single view Miguel Angel Handy ERP ENGINEER - [employer] OPERATOR SUPERVISOR Work Phone: Start: 05-12-2024 Glucose quantitative blood xcpt reagent strip Daysi Velasco MD Work Phone: Start: 05-12-2024 Ecg routine ecg w/le ast 12 lds trcg only w/o i&r Miguel Agnel Handy ERP ENGINEER - [employer] OPERATOR SUPERVISOR Work Phone: Start: 05-12-2024 Basic metabolic pane l calcium total Miguel Angel Steinbergraad ERP ENGINEER - [employer] OPERATOR SUPERVISOR Work Phone: Start: 05-11-2024 Glucose quantitative blood [...] ph pco2 po2 co2 hco3 Miguel Angel Steinbergraad ERP ENGINEER - [employer] OPERATOR SUPERVISOR Work Phone: Start: 05-11-2024 End: 05-11-2024 Glucose quantitative blood xcpt reagent strip Daysi Velasco MD Work Phone: Start: 05-11-2024 Radiologic exam ches t single view Miguel Angel Jensen Rozina CENTENO - [employer] PU[employer] OPERATOR SUPERVISOR Work Phone: Start: 05-11-2024 Ecg routine ecg w/le ast 12 lds trcg only w/o i&r Miguel Angel Steinbergraad ERP ENGINEER - [employer] OPERATOR SUPERVISOR Work Phone: Start: 05-11-2024 End: 05-11-2024 Basic metabolic panel calcium total Miguel Angel Steinbergraad CENTENO - [employer] OPERATOR SUPERVISOR Work Phone: Start: 05-11-2024 End: 05-11-2024 Glucose quantitative blood xcpt reagent strip Daysi Velasco MD Work Phone: Start: 05-11-2024 End: 05-11-2024 Coagj/fbrnlys assay whole blood additive per day Wagner Mathias DO Work Phone: Start: 05-11-2024 End: 05-11-2024 Blood count hematocrit Wagner Mathias DO Work Phone: Start: 05-10-2024 Blood gases any comb ination ph pco2 po2 co2 hco3 Miguel Angel Handy ERP ENGINEER - [employer] OPERATOR SUPERVISOR Work Phone: Start: 05-10-2024 End: 05-10-2024 Glucose [...] pco2 po2 co2 hco3 Miguel Angel Handy ERP ENGINEER - [employer] OPERATOR SUPERVISOR Work Phone: Start: 05-10-2024 End: 05-10-2024 Basic metabolic panel calcium total Miguel Angel Handy ERP ENGINEER - [employer] OPERATOR SUPERVISOR Work Phone: Start: 05-10-2024 EXTUBATION Miguel Angel Louis ERP ENGINEER - [employer] OPERATOR SUPERVISOR Work Phone: Start: 05-10-2024 End: 05-10-2024 Glucose quantitative blood xcpt reagent strip Daysi Velasco MD Work Phone: Start: 05-10-2024 Comprehensive metabo lic panel Miguel Angel A. Leskosky ERP ENGINEER - [employer] OPERATOR SUPERVISOR Work Phone: Start: 05-10-2024 Blood gases any comb ination ph pco2 po2 co2 hco3 Miguel Angel Handy ERP ENGINEER - [employer] OPERATOR SUPERVISOR Work Phone: Start: 05-10-2024 Radiologic exam ches t single view Miguel Angel Handy ERP ENGINEER - [employer] OPERATOR SUPERVISOR Work Phone: Start: 05-10-2024 Ecg routine ecg w/le ast 12 lds trcg only w/o i&r Miguel Angel Handy ERP ENGINEER - [employer] OPERATOR SUPERVISOR Work Phone: Start: 05-10-2024 Echo transesophag r- [...] Radiologic exam ches t 2 views Azam ERP ENGINEER - [employer] OPERATOR SUPERVISOR Work Phone: Start: 05-04-2024 Antibody screen DAYSI REAGAN RENALDO Comment on above: Performed By: #### L [id number] ####Associate Professor Of Art: DANIELLA PEREZ ([id number])[facility] ([facility])[address] [place] [address] Start: 04-21-2024 X-ray of chest, PA a [...] Dietary management education, guidance, and counseling Rosa Fernandezalen Work Phone: Start: 05-14-2016 End: 05-14-2016 Documentation [...] PA-C Work Phone: Start: 05-07-2014 End: 05-07-2014 PFM Raven Thrasher PA-C Work Phone: Start: 05-07-2014 End: 05-08-2014 Documentation of current medications Raven Thrasher PA-C Work Phone: Start: 05-07-2014 End: 05-07-2014 Follow Up Appt 6 months Raven Thrasher PA-C Work Phone: Start: 05-07-2014 End: 05-07-2014 PF Raven Thrasher PA-C Work Phone: Start: 02-22-2014 End: 02-22-2014 [facility] Rosa Harris Work Phone: Start: 11-06-2013 End: 11-06-2013 Follow Up Appt 6 months Josias Turk MD Start: 11-06-2013 End: 11-06-2013 MM Josias Turk MD Start: 11-06-2013 End: 11-06-2013 Follow Up Appt 6 months Josias Turk MD Start: 11-06-2013 End: 11-06-2013 MM Josias Turk MD Start: 05-15-2013 End: 04-26-2014 24 hour holter monitor Josias Turk MD Start: 05-15-2013 End: 05-15-2013 Follow Up Appt 6 months Josias Turk MD Start: 05-15-2013 End: 05-15-2013 PFM Josias Turk MD Start: 05-15-2013 End: 04-26-2014 24 hour holter monitor Josias Turk MD Start: 05-15-2013 End: 05-15-2013 Follow Up Appt 6 months Josias Turk MD Start: 05-15-2013 End: 05-15-2013 PFM Josias Tukr MD Start: 10-06-2012 End: 05-15-2013 24 hour [...] (coronary artery bypass graft) Miguel Angel Handy ERP ENGINEER - [employer] OPERATOR SUPERVISOR Work Phone: History of coronary artery bypass grafting S/P CABG (coronary artery bypass graft) Miguel Angel Handy ERP ENGINEER - [employer] PU[employer] OPERATOR SUPERVISOR Work Phone: History of coronary artery bypass grafting S/P CABG (coronary artery bypass graft) Daysi Velasco MD Work Phone: History of coronary artery bypass grafting S/P CABG (coronary artery bypass graft) Miguel Angel Handy ERP ENGINEER - [employer] PU[employer] OPERATOR SUPERVISOR Work Phone: End: 02-23-2024 History of coronary artery 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 Fredis Moon MD Urine culture Plan of Treatment Date Care Activity Detail Author Start: 07-31-2025 Depression Screening Depression Screening [facility] Start: 05-16-2025 Diabetes: Estimated Glomerular Filtration Rate for Kidney Health Diabetes: Estimated Glomerular Filtration Rate for Kidney Health [facility] Start: 05-16-2025 [facility] Start: 05-04-2025 Diabetes: Estimated Glomerular Filtration Rate for Kidney Health Diabetes: Estimated Glomerular Filtration Rate for Kidney Health [facility] Start: 10-23-2024 Influenza vaccination Influenza Vaccine (Season Ended) [facility] Start: 10-02-2024 Anaerobic microbial culture Anaerobic Culture [facility] Start: 10-02-2024 Source specific culture [facility] Start: 09-08-2024 [facility] Start: 09-08-2024 [facility] Start: 07-05-2024 End: 07-05-2024 Telemedicine consultation with patient 07/05/2024 1:[address] [facility] [place] [address] [place] [address] Miguel Angel Handy, ERP ENGINEER - [facility] [address] [place] [address] [facility] Cardiovascular [facility]acic [facility] [place] Start: 06-14-2024 Patient discharge [facility] Start: 06-13-2024 Development of care plan [facility] Start: 06-10-2024 Patient discharge [facility] Start: 06-07-2024 Referral to service [facility] Start: 06-05-2024 [facility] Start: 06-05-2024 Recommendation to continue with treatment [facility] Start: 05-25-2024 End: 05-25-2024 [facility] Start: 05-25-2024 [facility] Start: 05-23-2024 Speech therapy management [facility] Start: 05-23-2024 Measurement of occult blood in stool specimen using immunoassay [facility] Start: 05-22-2024 Speech therapy assessment [facility] Start: 05-22-2024 [facility] Start: 05-17-2024 Development of care plan [facility] Start: 05-17-2024 Developing a treatment plan [facility] Start: 05-17-2024 End: 05-17-2024 [facility] Start: 05-17-2024 End: 05-17-2024 Administration of blood product [facility] Start: 05-16-2024 Speech therapy assessment [facility] Start: 05-16-2024 Verification routine [facility] Start: 05-16-2024 Provision of activity privileges [facility] Start: 05-16-2024 End: 05-16-2024 [facility] Start: 05-16-2024 Wound care [facility] Start: 05-16-2024 Admission procedure [facility] Start: 05-16-2024 Introduction of urinary catheter [facility] Start: 05-16-2024 Measuring intake and output [facility] Start: 05-16-2024 End: 05-17-2024 Patient referral to dietitian [facility] Start: 05-16-2024 Referral to occupational therapist [facility] Start: 05-16-2024 Referral to service [facility] Start: 05-16-2024 Vital signs measurements [facility] Start: 05-16-2024 Application of elastic bandage [facility] Start: 05-16-2024 Continuous positive airway pressure ventilation treatment [facility] Start: 05-16-2024 [facility] Start: 05-10-2024 End: 05-10-2024 Admission to same day surgery center 05/10/2024 7:30 AM EDT - 05/10/2024 12:30 PM EDT Surgery [facility] MA[facility] OR [address] [facility] [place] [address] Daysi Velasco MD [address] [place] [address], [address] [place] [address] CORONARY ARTERY BYPASS GRAFT [76739 (CPT )] [facility] Comment on above: CORONARY ARTERY BYPASS GRAFT [35280 (CPT )] Start: 05-10-2024 End: 05-10-2024 Anesthesia consultation 05/10/2024 7:30 AM EDT Anesthesia Event [facility] OR [address] [place] [address] Gale Garcia, ERP ENGINEER - WATER PL[employer] PUMP OPERATOR SUPERVISOR [address] [place] [address] [facility] Start: 05-10-2024 End: 05-10-2024 Cabg w/arterial graft three arterial grafts CORONARY ARTERY BYPASS GRAFT CAD (coronary artery disease) 05/10/2024 7:30 AM EDT [facility] Operating Room Start: 05-10-2024 End: 05-10-2024 Echo transesophag r-t 2d w/prb img acquisj i&r ECHOCARDIOGRAM, TRANSESOPHAGEAL CAD (coronary artery disease) 05/10/2024 7:30 AM EDT [facility] Operating Room Start: 05-10-2024 Subsequent hospital visit by physician 05/10/2024 7:30 AM EDT Hospital Encounter [facility] [address] [place] [address] Daysi Velasco MD [address] [place] [address], [address] [place] [address] [facility] Start: 05-04-2024 End: 05-04-2024 Admission to establishment 05/04/2024 11:00 AM EDT Pre-Admission Testing [facility] Pre-Admit Testing [address] [place] [address] [facility] Pre-[facility]mit Testing Start: 04-24-2024 Patient referral [facility] Work Phone: Start: 04-24-2024 Patient discharge [facility] Start: 10-24-2023 COVID-19 Vaccine ( season) COVID-19 Vaccine ( season) [facility] Start: 10-24-2023 COVID-19 Vaccine ( season) COVID-19 Vaccine ( season) [facility] Start: 10-24-2023 Influenza vaccination Influenza Vaccine (#1) [facility] Start: 10-24-2023 [facility] Start: 12-30-2022 [facility] Start: 05-29-2021 End: 06-12-2021 Influenza virus A and B RNA and SARS-CoV-2 (COVID-19) N gene panel - Respiratory specimen by BRIAN with probe detection COVID WITH FLUA+B, ROUTINE Microbiology Routine Close exposure to COVID-19 virus Expected: 05/29/2021, Expires: 06/12/2021 [facility] Work Phone: Comment on above: Expected: 05/29/2021, Expires: 2 Start: 05-23-2021 End: 06-02-2021 SARS-CoV-2 (COVID-19) RNA [Presence] in Respiratory specimen by BRIAN with probe detection [facility] Work Phone: Comment on above: Expected: 05/23/2021, Expires: 2 Start: 02-22-2021 ADVANCE DIRECTIVE DISCUSSION ADVANCE DIRECTIVE DISCUSSION [facility] Start: 04-05-2019 Zoster Vaccines (2 of 2) Zoster Vaccines (2 of 2) [facility] Start: 04-05-2019 [facility] Start: 12-20-2017 End: 12-20-2017 Patient encounter procedure Appointment [facility] Work Phone: Start: 2017 RSV Immunization for Adults (1 - 1-dose 75+ series) RSV Immunization for Adults (1 - 1-dose 75+ series) [facility] Start: 12-21-2016 End: 12-21-2016 Appointment Appointment [facility] Work Phone: Start: 12-21-2016 End: 12-21-2016 Follow Up Appt 1 year Follow [facility] Appt [facility] Work Phone: Start: 12-21-2016 End: 12-21-2016 PFM PF [facility] Work Phone: Start: 12-20-2015 End: 12-20-2015 Ecg routine ecg w/least 12 lds w/i&r EKG (In office) [facility] Work Phone: Start: 12-20-2015 End: 12-20-2015 Echocardiography Echocardiogram (complete) [facility] Work Phone: Start: 12-20-2015 End: 12-20-2015 Follow Up Appt 1 year Follow Up Appt 1 year [facility] Work Phone: Start: 12-20-2015 End: 12-20-2015 Nuclear stress test -exercise Nuclear stress test -exercise [facility] Work Phone: Start: 12-20-2015 End: 12-20-2015 [facility] Work Phone: Start: 12-20-2015 End: 12-20-2015 Ecg routine ecg w/least 12 lds w/i&r EKG (In office) [employer] [facility] Work Phone: Start: 12-20-2015 End: 12-20-2015 Echocardiography Echocardiogram (complete) [employer] [facility] Work Phone: Start: 12-20-2015 End: 12-20-2015 Follow Up Appt 1 year Follow Up Appt 1 year [facility] Work Phone: Start: 12-20-2015 End: 12-20-2015 Nuclear stress test -exercise Nuclear stress test -exercise [place] [employer] [facility] Work Phone: Start: 12-20-2015 End: 12-20-2015 [facility] [employer] [facility] Work Phone: Start: 11-21-2014 End: 11-21-2014 Ecg routine ecg w/least 12 lds w/i&r EKG (In office) [facility] Work Phone: Start: 11-21-2014 End: 11-21-2014 Follow Up Appt 1 year Follow Up Appt 1 year [facility] Work Phone: Start: 11-21-2014 End: 11-21-2014 PF PFM [facility] Work Phone: Start: 11-21-2014 End: 11-21-2014 Ecg routine ecg w/least 12 lds w/i&r EKG (In office) [facility] Work Phone: Start: 11-21-2014 End: 11-21-2014 Follow Up Appt 1 year Follow Up Appt 1 year [facility] Work Phone: Start: 11-21-2014 End: 11-21-2014 [facility] Work Phone: Start: 05-07-2014 End: 05-07-2014 Follow Up Appt 6 months Follow Up Appt 6 months [facility] Work Phone: Start: 05-07-2014 End: 05-07-2014 PF PF [facility] Work Phone: Start: 05-07-2014 End: 05-07-2014 Follow Up Appt 6 months Follow Up Appt 6 months [facility] Work Phone: Start: 05-07-2014 End: 05-07-2014 [facility] Work Phone: Start: 11-06-2013 End: 11-06-2013 Follow Up Appt 6 months Follow Up Appt 6 months [facility] Work Phone: Start: 11-06-2013 End: 11-06-2013 [facility] Work Phone: Start: 11-06-2013 End: 11-06-2013 Follow Up Appt 6 months Follow Up Appt 6 months [facility] Work Phone: Start: 11-06-2013 End: 11-06-2013 [facility] Work Phone: Start: 05-15-2013 End: 05-15-2013 24 hour holter monitor 24 hour holter monitor [facility] Work Phone: Start: 05-15-2013 End: 05-15-2013 Follow Up Appt 6 months Follow Up Appt 6 months [facility] Work Phone: Start: 05-15-2013 End: 05-15-2013 PFM PFM [facility] Work Phone: Start: 05-15-2013 End: 05-15-2013 24 hour holter monitor 24 hour holter monitor [place] [employer] [email or web address] Work Phone: Start: 05-15-2013 End: 05-15-2013 Follow Up Appt 6 months Follow Up Appt 6 months [place] [employer] [email or web address] Work Phone: Start: 05-15-2013 End: 05-15-2013 PFM PF [employer] [email or web address] Work Phone: Start: 01-20-2013 Hepatitis B screening URINE ALBUMIN:CREATININE RATIO [facility] Start: 01-20-2013 Hepatitis B surface antibody level LDL CHOLESTEROL [facility] Start: 10-06-2012 End: 10-06-2012 24 hour holter monitor 24 hour holter monitor [facility] Work Phone: Start: 10-06-2012 End: 10-06-2012 Ecg routine ecg w/least 12 lds w/i&r EKG (In office) [facility] Work Phone: Start: 10-06-2012 End: 10-06-2012 Echocardiography Echocardiogram (complete) [facility] Work Phone: Start: 10-06-2012 End: 10-06-2012 Follow Up Appt 6 months Follow Up Appt 6 months [facility] Work Phone: Start: 10-06-2012 End: 10-06-2012 Nuclear stress test -exercise Nuclear stress test -exercise [facility] Work Phone: Start: 10-06-2012 End: 10-06-2012 PFM PFM [facility] Work Phone: Start: 10-06-2012 End: 10-06-2012 24 hour holter monitor 24 hour holter monitor [facility] Work Phone: Start: 10-06-2012 End: 10-06-2012 Ecg routine ecg w/least 12 lds w/i&r EKG (In office) [facility] Work Phone: Start: 10-06-2012 End: 10-06-2012 Echocardiography Echocardiogram (complete) [facility] Work Phone: Start: 10-06-2012 End: 10-06-2012 Follow Up Appt 6 months Follow Up Appt 6 months [facility] Work Phone: Start: 10-06-2012 End: 10-06-2012 Nuclear stress test -exercise Nuclear stress test -exercise [facility] Work Phone: Start: 10-06-2012 End: 10-06-2012 PFM PFM [facility] Work Phone: Start: 07-20-2012 Hemoglobin A1c/Hemoglobin.total in Blood HBA1C [facility] Start: 01-07-2012 Hepatitis C antibody, confirmatory test DILATED RETINAL EXAM [facility] Start: 2007 PNEUMOVAX AGE 65 AND OVER WITH 5YR LOOKBACK (#1) PNEUMOVAX AGE 65 AND OVER WITH 5YR LOOKBACK (#1) [facility] Start: 1992 SHINGRIX VACCINE (1 of 2) SHINGRIX VACCINE (1 of 2) [facility] Start: 1992 Zoster Vaccines (1 of 2) Zoster Vaccines (1 of 2) [facility] Start: 1961 DTaP/Tdap/Td Vaccines (1 - Tdap) DTaP/Tdap/Td Vaccines (1 - Tdap) [facility] Start: 1961 Pneumococcal Vaccine: 50+ Years (1 of 2 - PCV) Pneumococcal Vaccine: 50+ Years (1 of 2 - PCV) [facility] Start: 1961 Urine microalbumin profile DTAP,TDAP,TD (1 - Tdap) [facility] Start: 1961 [facility] Start: 1960 ANNUAL PCP TEAM CHRONIC DISEASE VISIT ANNUAL PCP TEAM CHRONIC DISEASE VISIT [facility] Start: 1960 Diabetes: Estimated Glomerular Filtration Rate for Kidney Health Diabetes: Estimated Glomerular Filtration Rate for Kidney Health [facility] Start: 1960 Diabetes: Urine Albumin-Creatinine Ratio for Kidney Health Diabetes: Urine Albumin-Creatinine Ratio for Kidney Health [facility] Start: 1960 [facility] Start: 1954 Adult depression screening assessment DEPRESSION SCREENING [facility] Start: 1954 [facility] Start: 1952 3 comp foot exam completed DIABETIC FOOT EXAM [facility] Start: 1942 Medicare Annual Wellness (AWV) Medicare Annual Wellness (AWV) [facility] Start: 1942 [facility] Anion gap in Serum o r Plasma [facility] Anion gap in Serum o r Plasma [facility] Anion gap in Serum o r Plasma [facility] Anion gap in Serum o r Plasma [facility] BUN/Creatinine ratio [facility] BUN/Creatinine ratio [facility] BUN/Creatinine ratio [facility] BUN/Creatinine ratio [facility] Calcium [Mass/volume ] in Serum or Plasma [facility] Calcium [Mass/volume ] in Serum or Plasma [facility] Calcium [Mass/volume ] in Serum or Plasma [facility] Calcium [Mass/volume ] in Serum or Plasma [facility] Carbon dioxide, tota l [Moles/volume] in Central venous blood [facility] Carbon dioxide, tota l [Moles/volume] in Central venous blood [facility] Carbon dioxide, tota l [Moles/volume] in Central venous blood [facility] Carbon dioxide, tota l [Moles/volume] in Central venous blood [facility] Catheterization of l eft heart [facility] CBC W Auto Different ial panel - Blood [facility] Comprehensive metabo lic 2000 panel - Serum or Plasma [facility] Creatinine [Mass/vol ume] in Serum or Plasma [facility] Creatinine [Mass/vol ume] in Serum or Plasma [facility] Creatinine [Mass/vol ume] in Serum or Plasma [facility] Creatinine [Mass/vol ume] in Serum or Plasma [facility] Erythrocyte mean corpuscular volume determination [facility] Erythrocyte mean corpuscular volume determination [facility] Erythrocyte mean corpuscular volume determination [facility] Erythrocyte mean corpuscular volume determination [facility] Glucose [Mass/volume ] in Serum or Plasma [facility] Glucose [Mass/volume ] in Serum or Plasma [facility] Glucose [Mass/volume ] in Serum or Plasma [facility] Glucose [Mass/volume ] in Serum or Plasma [facility] Hematocrit [Volume Fraction] of Blood [facility] Hematocrit [Volume Fraction] of Blood [facility] Hematocrit [Volume Fraction] of Blood [facility] Hematocrit [Volume Fraction] of Blood [facility] Hemoglobin [Mass/vol ume] in Blood [facility] Hemoglobin [Mass/vol ume] in Blood [facility] Hemoglobin [Mass/vol ume] in Blood [facility] Hemoglobin [Mass/vol ume] in Blood [facility] Leukocytes [#/volume ] in Blood [facility] Leukocytes [#/volume ] in Blood [facility] Leukocytes [#/volume ] in Blood [facility] Leukocytes [#/volume ] in Blood [facility] Lipid 1996 panel - S trae or Plasma [facility] Mean corpuscular hemoglobin concentration determination [facility] Mean corpuscular hemoglobin concentration determination [facility] Mean corpuscular hemoglobin concentration determination [facility] Mean corpuscular hemoglobin concentration determination [facility] Mean corpuscular hemoglobin determination [facility] Mean corpuscular hemoglobin determination [facility] Mean corpuscular hemoglobin determination [facility] Mean corpuscular hemoglobin determination [facility] Measurement of renal function [facility] Measurement of renal function [facility] Measurement of renal function [facility] Measurement of renal function [facility] Neutrophil count [facility] Neutrophil count [facility] Neutrophil count [facility] Neutrophil count [facility] Neutrophil percent differential count [facility] Neutrophil percent differential count [facility] Neutrophil percent differential count [facility] Neutrophil percent differential count [facility] Patient Education [facility] [employer] Work Phone: Patient referral [facility] Work Phone: Platelets [#/volume] in Blood [facility] Platelets [#/volume] in Blood [facility] Platelets [#/volume] in Blood [facility] Platelets [#/volume] in Blood [facility] Potassium measurement [facility] Potassium measurement [facility] Potassium measurement [facility] Potassium measurement [facility] End: 05-10-2024 Prothrombin time (PT) in Blood by Coagulation assay [facility] [employer] Work Phone: Red blood cell count [facility] Red blood cell count [facility] Red blood cell count [facility] Red blood cell count [facility] Red cell distributio n width determination [facility] Red cell distributio n width determination [facility] Red cell distributio n width determination [facility] Red cell distributio n width determination [facility] Serum chloride measurement [facility] Serum chloride measurement [facility] Serum chloride measurement [facility] Serum chloride measurement [facility] Sodium measurement [facility] Sodium measurement [facility] Sodium measurement [facility] Sodium measurement [facility] Urea nitrogen [Mass/volume] in Serum or Plasma [facility] Urea nitrogen [Mass/volume] in Serum or Plasma [facility] Urea nitrogen [Mass/volume] in Serum or Plasma [facility] Urea nitrogen [Mass/volume] in Serum or Plasma [facility] Immunizations Immunization Date Immunization Notes Care Provider [facility] 01-07-2024 Pneumococcal Vaccine PCV20 (Prevnar 20) Dr. Fredis Moon MD Work Phone: [facility] 11-24-2023 RSV Adult Recombinan t (Arexvy) Dr. Fredis Moon MD Work Phone: [facility] 12-29-2022 RSV Adult Recombinan t (Arexvy) Dr. Fredis Moon MD Work Phone: [facility] 12-02-2022 influenza virus vaccine, unspecified formulation [facility] 1 [facility] 12-17-2020 COVID-19 vaccine, fu ll dose (MODERNA) Yoselin Khan APRN.WATER PLANT PUMP OPERATOR SUPERVISOR Work Phone: [facility] 03-05-2008 influenza virus vaccine, unspecified formulation Alix Valle APRN.WATER PLANT PUMP OPERATOR SUPERVISOR Work Phone: [facility] Work Phone: Payers Date Payer Category Payer Medicare [id number] 2024 Self-pay [id number] 2021 Medicare supplementa l policy (as second payer) [id number] 2021 Unknown [id number] 2016 Private Health Insurance [id number] 2007 Medicare [id number] 1.13.680.2. [id number] 2007 Medicare [id number] 2007 Medicare MEDICARE MEDICAR E A AND B [id number] 2007-Present [phone] [address] [address] [place] [address] Medicare [id number]. [id number] Unknown [id number] Unknown [id number] 2.16.840.1.088609.3.579.2. 462 Unknown [id number] 2.16.840.1.719990.3.579.2. 462 Unknown [id number] 2.16.840.1.748954.3.579.2. 462 Unknown [id number] 2.16.840.1.826340.3.579.2. 462 Unknown [id number] 2.16840.1.662618.3.579.2. 462 Unknown [id number] 2.16840.1.439427.3.579.2. 462 Unknown [id number] 2.16840.1.585635.3.579.2. 462 Unknown [id number] 2.16840.1.629610.3.579.2. 462 Unknown [id number] 2.840.1.073666.3.579.2. 462 Unknown [id number] 2.840.1.264291.3.579.2. 462 Unknown [id number] 2.840.1.372659.3.579.2. 462 Unknown [id number] 2.840.1.055450.3.579.2. 462 Unknown [id number] 2.840.1.419111.3.579.2. 462 Unknown [id number] 2.840.1.601842.3.579.2. 462 Unknown [id number] 2.840.1.226242.3.579.2. 462 Unknown [id number] 2.840.1.490334.3.579.2. 462 Unknown [id number] 2.840.1.128997.3.579.2. 462 Unknown [id number] .840.1.603576.3.579.2. 462 Unknown [id number] 2.840.1.744157.3.579.2. 462 Unknown [id number] 2.840.1.191653.3.579.2. 462 Unknown [id number] 2.840.1.739161.3.579.2. 462 Unknown [id number] 2.840.1.062364.3.579.2. 462 Unknown [id number] 2.840.1.312610.3.579.2. 462 Unknown [id number] 2.16.840.1.548072.3.579.2. 462 Unknown [id number] 2.16.840.1.772017.3.579.2. 462 Unknown [id number] 2.16.840.1.814739.3.579.2. 462 Unknown [id number] 2.16.840.1.356227.3.579.2. 462 Unknown [id number] 2.16.840.1.939729.3.579.2. 462 Unknown [id number] 2.16.840.1.598100.3.579.2. 462 Unknown [id number] 2.16.840.1.134063.3.579.2. 462 Unknown [id number] 2.16.840.1.424533.3.579.2. 462 Unknown [id number] 2.16.840.1.438543.3.579.2. 462 Unknown [id number] 2.16.840.1.358175.3.579.2. 462 Unknown [id number] 2.16.840.1.941293.3.579.2. 462 Unknown [id number] 2.16.840.1.636643.3.579.2. 462 Unknown [id number] 2.16.840.1.553451.3.579.2. 462 Unknown [id number] 2.16.840.1.821910.3.579.2. 462 Unknown [id number] 2.16.840.1.120244.3.579.2. 462 Unknown [id number] 2.16.840.1.289700.3.579.2. 462 Social History Date Type Detail Facility Start: 01-06-2021 End: 04-05-2023 Tobacco smoking status NHIS Unknown if ever smoked [facility] Start: 1940 Sex Assigned At Male [facility] Start: 05-04-2024 End: 09-08-2024 Tobacco smoking status NHIS Ex-smoker [facility] Start: 05-23-2021 End: 05-29-2021 Alcohol intake Current non-drinker of alcohol (finding) [facility] Start: 1940 Sex Assigned At Not on file [facility] Start: 05-13-2021 End: 05-23-2021 Exposure to SARS-CoV-2 (event) Yes [facility] Work Phone: Start: 05-19-2021 End: 05-29-2021 Exposure to SARS-CoV-2 (event) Not sure [facility] Work Phone: Start: 02-12-2013 None [facility] Start: 02-12-2013 With Family [facility] Start: 07-15-2017 Cigarettes [facility] Start: 04-25-2024 Tobacco smoking stat us MOIS Never smoked tobacco [facility] [employer] Start: 04-25-2024 End: 05-04-2024 Tobacco use and exposure Smokeless tobacco non-user [facility] [employer] [facility] [employer] Start: 04-25-2024 End: 07-05-2024 Alcoholic beverage intake Lifetime non-drinker (finding) [facility] [employer] [facility] [employer] Start: 04-25-2024 End: 07-31-2024 History of Social function [facility] [employer] [facility] [employer] Work Phone: Start: 04-25-2024 End: 07-31-2024 Tobacco use panel [facility] [employer] [facility] [employer] Work Phone: Start: 04-24-2024 End: 06-08-2024 Sex Male (finding) [facility] [employer] [facility] [employer] Start: 02-22-1962 History of tobacco use Current smoke r [facility] Start: 02-22-1962 History of tobacco use Cigarette Smo ker [facility] [employer] Has the Student [employer], ga s, [employer], or water company threatened to shut off services in your home in past 12Mo No [facility] Work Phone: How often to you hav e a drink containing alcohol? Never [facility] How many standard drinks containing alcohol do you have on a typical day? Patient does not drink [facility] [employer] How hard is it for y ou to pay for the very basics like food, housing, medical care, and heating Not very hard [facility] Do you feel stress - tense, restless, nervous, or anxious, or unable to sleep at night because your mind is troubled all the time - these days [OSQ] Only a little [facility] (I/We) worried wheth er (my/our) food would run out before (I/we) got money to buy more. Never true [facility] Are you now , , , , never or living with a partner? [facility] Medical Equipment Procedure Code Equipment Code Equipment Origin al Text Equipment Identifier Dates INSULIN PEN NEEDLE Start: 05-15-2011 End: 10-06-2012 Comment on above: CHECK BLOOD SUGARS 3 -4 TIMES DAILY CLIP,KIERANLANCE VILLAGOMEZ FDA Start: 07-14-2017 CLIP,HEMLANCE NOEL FDA Start: 07-14-2017 CLIP,HEMADALIDSTUART [facility] [employer] FDA Start: 07-14-2017 CLIP,HEMLANCE NOEL FDA Start: 07-14-2017 CLIP,HEMLANCE NOEL FDA Start: 07-14-2017 CLIP,HEMADALIDSTUART [facility] FDA Start: 07-14-2017 CLIP,HEMADALIDSTUART [facility] [employer] [facility] FDA Start: 07-14-2017 CLIP,HEMADALIDSTUART NOEL FDA Start: 07-14-2017 CLIPHEMADALIDSTUART VILLAGOMEZ FDA Start: 07-14-2017 CLIP,HEMADALIDSTUART RINALDI WE FDA Start: 07-14-2017 CLIP,HEMADALIDSTUART [facility] [employer] [facility] FDA Start: 07-14-2017 CLIP,HEMLANCE VILLAGOMEZ FDA Start: 07-14-2017 CLIP,HEMLANCE RINALDI WE FDA Start: 07-14-2017 CLIP,HEMADALIDSTUART RINALDI WE FDA Start: 07-14-2017 CLIP,HEMADALIDSTUART RINALDI WE FDA Start: 07-14-2017 CLIP,HEMADALIDSTUART RINALDI WESTUART FDA Start: 07-14-2017 CLIP,HEMLANCE RINALDI WESTUART FDA Start: 07-14-2017 CLIP,HEMLANCE RINALDI WE FDA Start: 07-14-2017 CLIP,HEMADALIDSTUART RINALDI WESTUART FDA Start: 07-14-2017 CLIP,HEMLANCE [facility]INAL[facility] FDA Start: 07-14-2017 CLIP,HEMLANCE [facility] [employer] FDA Start: 07-14-2017 CLIP,HEMOLOCK LG WECK FDA [...] 07-14-2017 CLIP,HEMOLOCK LG WECK FDA Start: 07-14-2017 CLIP,HEMADALIDCK LG DAHLIA FDA Start: 07-14-2017 CLIP,HEMADALIDCK LG SADIECK FDA Start: 07-14-2017 CLIP,HEMOLOCK LG SADIECK FDA Start: 07-14-2017 CLIP,HEMOLOCK LG WESTUART FDA Start: 07-14-2017 CLIP,HEMLANCE VILLAGOMEZ FDA Start: 07-14-2017 CLIP,HEMADALIDCK LG DAHLIA FDA Start: 07-14-2017 CLIP,HEMADALIDCK LG DAHLIA FDA Start: 07-14-2017 CLIP,HEMADALIDCK LG DAHLIA FDA Start: 07-14-2017 CLIP,HEMADALIDCK LG WESTUART FDA Start: 07-14-2017 CLIP,HEMADALIDCK LG DAHLAI FDA Start: 07-14-2017 CLIP,HEMADALIDCK LG DAHLIA FDA Start: 07-14-2017 CLIP,HEMADALIDCK LG DAHLIA FDA Start: 07-14-2017 CLIP,HEMLANCE VILLAGOMEZ FDA Start: 07-14-2017 CLIP,HEMLANCE VILLAGOMEZ FDA Start: 07-14-2017 CLIP,HEMLANCE VILLAGOMEZ FDA Start: 07-14-2017 CLIP,HEMLANCE VILLAGOMEZ FDA Start: 07-14-2017 CLIP,HEMLANCE VILLAGOMEZ FDA Start: 07-14-2017 CLIP,HEMLANCE VILLAGOMEZ FDA Start: 07-14-2017 CLIP,HEMLANCE VILLAGOMEZ FDA Start: 07-14-2017 Goals Date Patient Goal Desired Activity /State Functional Status Date Assessment Result Facility 07-31-2024 Patient Health Questionnaire 2 item (PHQ-2) [Reported] [facility] 07-31-2024 Total score [AUDIT-C] 0 08/01/19 25 2:43 PM EDT Lilliana Reed LISW [facility] 06-14-2024 Functional status Bedrest [facility] Work Phone: 06-07-2024 Functional status Chair [facility] Work Phone: 06-03-2024 Functional status Tolerates Activity Well [facility] Work Phone: 05-22-2024 Functional status Chair [facility] Work Phone: 05-21-2024 Functional status Tolerates Activity Well [facility] Work Phone: [facility] Mental Status Date Assessment Result Facility 09-08-2024 Cognitive function Voice/Name [facility] Work Phone: 06-14-2024 Cognitive function Voice/Name [facility] Work Phone: 06-13-2024 Cognitive function Demonstrates ability to follow instructions/comprehend [facility] Work Phone: 06-07-2024 Cognitive function Voice/Name [facility] Work Phone: 06-05-2024 Cognitive function Demonstrates ability to follow instructions/comprehend [facility] Work Phone: 05-22-2024 Cognitive function Voice/Name [facility] Work Phone: 05-19-2024 Cognitive function Demonstrates ability to follow instructions/comprehend [facility] Work Phone: Clinical Notes 05-14-2016 to 10-02-2024 Note Date & Type Note Facility 10-02-2024 Progress note [facility] 10-02-2024 Progress note Note Date/Time October 02, 2024 12:25pm [facility] 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 Cardiac catheterization: 06/24/2001: [facility] FINAL IMPRESSION: 1. Elevated left ventricular [...] EPISODES OF BORDERLINE 1ST DEGREE AV BLOCK- TN.22-.24 MINIMUM HR 445PM AT 501:53 AM WHILE [...] and Plan (1) Atherosclerotic heart disease of [place] coronary artery without angina pectoris: Status: Chronic Qualifiers: [place] vs. transplanted heart: [place] heart Qualified Code(s): I25.10 -Atherosclerotic heart disease of [place] coronary artery without angina pectoris Plan: He [...] Code Off vis,est,level 4 Diagnoses Atherosclerosis of [place] coronary artery of [place] heart without angina pectoris I25.10 [place] vs. transplanted heart: [place] heart Diastolic dysfunction I51.89 Mixed hyperlipidemia E78.2 Carotid artery disease I77.9 Anemia D64.9 Type 2 diabetes mellitus with hyperglycemia E11.65 Coding Level of Care Code Off vis,est,level 4 Diagnoses Atherosclerosis of [place] coronary artery of [place] heart without angina pectoris I25.10 [place] vs. transplanted heart: [place] heart Diastolic dysfunction I51.89 Mixed hyperlipidemia E78.2 Carotid artery disease I77.9 Anemia D64.9 Type 2 diabetes mellitus with hyperglycemia E11.65 Clinical Quality Measures Falls Risk Screening/Assistive Devices Have you fallen in the past year?: Yes (3- tripped d/t neuropathy.) Cardiac Ejection fraction %: 65 10/02/24 1225 <Electronically signed by Wagner MANEC> Date _ Wagner Pond Roof VERTICAL BORER VERTICAL BORER-C Yvesigner Signature: Date (if applicable) CC: Dr. Montana Jones MD; Dr. Fredis Moon MD ~ [facility] Work Phone: 1(377) 337-734007-18-2025 Discharge summary [facility] Medical Records Department [address] [place] [address] Emergency Department Summary 09/08/24 MR#: [id number] Acct: [id number] Name: Joaquin THRASHER Rep #:[id number] : 1940 84 From: Tiara Carlin [...] for mild nausea and fullness inhis head. [facility] Medical History Carotid artery disease Malignant neoplasm of prostate Mixed hyperlipidemia Hepatitis B GERD (gastroesophageal reflux disease) Neuropathy Essential hypertension Syncope Wide-complex tachycardia Premature ventricular contraction Premature atrial contractions Sinus bradycardia Atherosclerotic heart disease of [place] coronary artery without angina pectoris Diabetes type [...] (Auto) 65.0 Lymph % (Auto) 17.6 L Yancey % (Auto) 13.8 H Eos % (Auto) [...] aorta. Reading Location: [facility] Rhythm Strip Rhythm Strip: Sinus Rhythm Rate: [...] return to the emergency room. Print Language: Sierra Leonean Disposition Disposition: Home, Self Care What to do if you have Problems For any increased pain, shortness of breath, bleeding, nausea or vomiting, chestpain, or any unexpected problems, contact your Primary Care Provider. Call [facility] ([phone]) or report tothe closest Emergency Room. Call 911 if necessary. 09/08/24 1322 Cosigner Signature (if applicable): CC: Dr. Fredis Moon MD ~ Signed [facility]07-18-2025 Radiology Diagnostic study note [facility] Imaging Services [address] [place], [place] [id number] Chest PA and Lateral MR#: [id number] Acct: [id number] Name: Joaquin THRASHER Rep #: [id number] : 1940 M 84 From: Danis Lopez DO PCP: Dr. Fredis Moon MD Status: REG E R Study:Chest PA and Lateral Date of Exam: 09/08/24 Exam# [id number] Ordering Dr: Yin Alston DO PROCEDURE: CHEST [...] vascular disease of the aorta. Reading Location: [id number] CC: Dr. Tiara Alston DO; Dr. Fredis Moon MD ~ Director Of Automation: Signed [facility]06-09-2025 Note07/31/2024: Reviewed EMR. Outreach made to Nimisha. Verified he received the HCAP application. Nimisha shared appreciation and relief that at this time, his medical bills are manageable. Noted his balance per epic at this time is $0. Nimisha reviewed he has hired someone to help install grab bars and is exploring reimbursement for this through [email or web address]. Updated the SDOH assessment today. Nimisha shared strong familial support as well as neighbors and anglican family who are helpful and reach out often. Right now not needing any help No needs identified at this time. Aware of planned program closure 08/14. Coordinate with Chante SAMUEL. No additional outreaches scheduled. 06/30/2024: Reached out to CCU to ask for assistance reaching Mary Alice. Shared my contact information with request for a return call. Call made to Nimisha to update. No answer; left a message asking for a return call if needed. Follow up outreach scheduled with goal of updating the SDOH questionnaire. Received return voicemail from Nimisha sharing appreciating and updating he is graduating from home care and will be starting Cardiac Rehab next week and all has been going well and there are no new needs. Follow up previously scheduled to complete the SDOH assessment. 06/23/2024: Received call from Nimisha asking for assistance reaching out to staff member in Environmental Services who offered kindness when he was in the Cardiac Critical Care unit. [facility] Support provided. Nimisha shared appreciation for his level of recovery. Follow up outreach scheduled with goal of completing the SDOH assessment. 06/22/2024 Reviewed EMR prior to today's outreach. Noted Mr. Thrasher is home from [facility]. Plan for Cardiac Rehab. BPCI call made to Mr. Nimisha Thrasher. Introduced self and reviewed role on [facility]'s BPCI team. Verified Nimisha is able and agreeable to speak today. Assessed for needs or concerns. Nimisha shared he lives in [place] with his . He identified having a strong support system. Nimisha noted the impact his strong steve has had on his life and outlook. Nimisha denied any financial stressors today. He mentioned [...] GDMT for CABG. Able to discharge to [facility] on POD#06. 06/08/2024: Referral received from Chante Hong RNCM with the BPCI program, with request to update the social determinants of health questionnaire and assess for any social work needs. Outreach scheduled.[facility]06-02-2025 History of Present illness Narrative* Chante Hong RN - 07/24/2024 2:22 PM EDT 07/24/24 1421 BPCI Late Drop? Program late drop? No BP Outreach Assessment Selection Which outreach assessment are you completing? 60 Day BPCI - 60 Day Outreach Did patient answer phone call? No Do you have any concerns with your medication(s)? No Any complications with post discharge services? No (Patient has been going to Cardiac Rehab ([place]) for 3 weeks now) Any concerns with your DME equipment? No Any questions about your condition you are unsure about that I can help clarify? Yes (Discussed progress made and patient going to Cardiac Rehab. Discussed medications, medical bills- emailed patient HCAP application.) * Chante Hong RN - 07/24/2024 2:02 PM EDT [facility] 60 day outreach ADMIT DATE: 05/10/2024 DISCHARGE DATE: 05/16/2024 SURGERY: 05/10/24: s/p CABGx3 (PADILLA-LAD, RSVG-OM1, RSVG-PDA with endarterectomy), LEVDejah, RAYMOND with Dr. Velasco PMH: FELICIA, Parkinson's disease, CAD, HTN, DM2 Called and spoke to the patient. The patient stated he has been going to Cardiac Rehab-patient reports going to Cardiac Rehab for 3 weeks now. The patient stated he continues to receive bills and has many bills from his last hospitalization-discussed HCAP and the possibility of the patient qualifying for HCAP. Email: -this RN will email the patient the HCAP application for [facility]. Discussed grab bars in the shower- the patient stated he has the grab bars but needs to arrange forsomeone to do that- patient stated he knows people who can do it through his anglican. Discussed medications- no refills needed at this time. Overall the patient is doing and feeling well. The patient stated he plans on walking more to increase his exercise and learned how important itis to keep moving at Cardiac Rehab. Scheduled BPCI 90 day outreach (90 day closure 08/14/24). * Chante Hong RN - 07/24/2024 2:02 PM EDT 90 day BPCI outreach made by CHANTEL Tijerina 07/31/24. Ending BPCI program-complete. documented in this [facility]06-02-2025 Note90 day BPCI outreach made by CHANTEL Tijerina 07/31/24. Ending BPCI program-complete.[facility]06-02-2025 NoteBPCI 60 day outreach ADMIT DATE: 05/10/2024 DISCHARGE DATE: 05/16/2024 SURGERY: 05/10/24: s/p CABGx3 (PADILLA-LAD, RSVG-OM1, RSVG-PDA with endarterectomy), JUDY, RAYMOND with Dr. Velasco [facility]: FELICIA, Parkinson's disease, CAD, HTN, DM2 Called and spoke to the patient. The patient stated he has been going to Cardiac Rehab-patient reports going to Cardiac Rehab for 3 weeks now. The patient stated he continues to receive bills and has many bills from his last hospitalization-discussed HCAP and the possibility of the patient qualifying for HCAP. Email: -this RN will email the patient the HCAP application for [facility]. Discussed grab bars in the shower- the patient stated he has the grab bars but needs to arrange for someone to do that- patient stated he knows people who can do it through his anglican. Discussed medications- no refills needed at this time. Overall the patient is doing and feeling well. The patient stated he plans on walking more to increase his exercise and learned how important it is to keep moving at Cardiac Rehab. Scheduled BPCI 90 day outreach (90 day closure 08/14/24).[facility] 07-06-2024 Evaluation note* Diagnosis Onset Date Resolution Status Admit Date Anemia acute July 06, 2024 9:56am Atherosclerotic heart diseas e of [place] coronary artery without angina pectoris chronic July 06, 2024 9 :56am Carotid artery disease chronic Ma y 2024 9:56am Diastolic dysfunction chronic July 06, 2024 9:56am Mixed hyperlipidemia chronic July 06, 2024 9:56am Anemia acute October 02, 2 025 11:28am Type 2 diabetes mellitus wit h hyperglycemia acute October 02 11:28am Atherosclerotic heart diseas e of [place] coronary artery without angina pectoris chronic October 02 11:28am Carotid artery disease chronic Au zofia 2024 11:28am Diastolic dysfunction chronic Sep ust 2024 11:28am Mixed hyperlipidemia chronic Augu st 2024 11:28am [facility] Work Phone: 1(157) 420-109405-14-2025 History of Present illness Narrative* Miguel Angel Handy, TARYN - WATER PLANT PUMP OPERATOR SUPERVISOR - 07/05/2024 1:30 PM EDT Images from the original note were not included. [facility]: [facility] [address] [facility] [address] Dept: [phone] Dept Loc: [phone] Visit type: Established patient Reason for Visit: [...] circumstances: Recently seen in person, lives in [place] . The patient has been advised of [...] problems, and seek emergency medical treatment and/or [id number] if the patient deems either necessary. The patient stated that they are currently in the state [facility]. If the patient is a minor, permission [...] redirect to the Timeline version of the [employer] SmartLink. There were no vitals filed for this visit. Wt Readings from Last 3 Encounters: 06/22/24 207 lb (93.9 kg) 05/16/24 208 lb 3.2 oz (94.4 kg) 05/04/24 211 lb (95.7 kg) Physical exam deferred due to virtual visit-with audio (telephone) capabilities only. Data Reviewed and Summarized Labs/Imaging/Testing: reviewed EMR, see A&P for pertinent diagnostic results related to office visit Miguel Angel Handy, ERP ENGINEER - WATER PLANT PUMP OPERATOR SUPERVISOR [1] Allergies Allergen Reactions Rosuvastatin Other Reaction(s): [...] a CPAP at bedtime documented in this [facility]05-06-2025 History of Present illness Narrative* Chante Hong [...] with endarterectomy), LEVH, RAYMOND with Dr. Velasco PMH: FELICIA, Parkinson's disease, CAD, HTN, DM2 Called [phone] and spoke to the patient. The patient is active with home care: PT, OT, SN-homecare through [facility] services. Patient stated overall he is doing well. Went over follow up appts with the patient: 07/05 Cardiothoracic Surgery Patient stated he seen PCP Patient asked about restrictions post surgery- patient will discuss with Miguel Angel at office visit on 07/05/24. [facility]-patient heard from them and he [...] warning. No further questions or concerns. Scheduled [facility] 60 day outreach to check on the patient. documented in this encounterSMercy [facility]rbana [id number] Telephone encounter Note* Telephone Encounter - Leeanna Anderson - 06/23/2024 11:44 AM EDT [id number] Miscellaneous Notes* Telephone Encounter - Leeanna Anderson - 06/23/2024 11:44 AM EDT Order sent to [facility]. * Telephone Encounter - Leeanna Anderson - 06/23/2024 11:35 AM EDT Orders Placed This Encounter Procedures [facility] Cardiac/Pulmonary Rehab Standing Status: Future Standing Expiration Date: 12/24/2024 Referral Priority: Routine Referral Type: Consultation Referral Reason: Specialty Services Required Requested Specialty: Cardiac Rehabilitation Number of Visits Requested: 1 documented in this encounterSMercy Health Urbana [id number] NoteOrders Placed This Encounter Procedures [facility] Cardiac/Pulmonary Rehab Standing Status: Future Standing Expiration Date: 12/24/2024 Referral Priority: Routine Referral Type: Consultation Referral Reason: Specialty Services Required Requested Specialty: [facility]iac Rehabilitation [facility] encounter Note* Telephone Encounter - Leeanna Anderson - 06/23/2024 11:35 AM EDT Orders Placed This Encounter Procedures [facility] Cardiac/Pulmonary Rehab Standing Status: Future Standing Expiration Date: 12/24/2024 Referral Priority: Routine Referral Type: Consultation Referral Reason: Specialty Services Required Requested Specialty: Cardiac Rehabilitation Number of Visits Requested: 1 [id number] Note06/22/2024 Reviewed EMR prior to today's outreach. Noted Mr. Thrasher is home from [facility]. Plan for Cardiac Rehab. BPCI call made to Mr. Nimisha Thrasher. Introduced self and reviewed role on [facility]'s BPCI team. Verified Nimisha is able and agreeable to speak today. Assessed for needs or concerns. Nimisha shared he lives in [place] with his . He identified having a strong support system. Nimisha noted the impact his strong steve has had on his life and outlook. Nimisha denied any financial stressors today. He mentioned [...] GDMT for CABG. Able to discharge to [facility] on POD#06. 06/08/2024: Referral received from LIZZIE Brand with the BPCI program, with request to update the social determinants of health questionnaire and assess for any social work needs. Outreach scheduled.[facility]05[facility]01[facility] History of Present illness Narrative* Miguel Angel Handy, TARYN - WATER PLANT PUMP OPERATOR SUPERVISOR - 06/22/2024 11:00 AM EDT Images from the original note were not included. [facility]: [facility] [address] [facility] [address] Dept: [phone] Dept Loc: [phone] Visit type: Established patient Reason for Visit: Post-op Assessment and Plan 1. S/P CABG (coronary artery bypass graft) - [facility] Cardiac/Pulmonary Rehab 05/10/24: s/p CABGx3 (PADILLA-LAD, RSVG-OM1, RSVG-PDA with endarterectomy), JUDY, RAYMOND with Dr. Velasco -Real for cardiac [...] redirect to the Timeline version of the [employer] Smart[employer]. Vitals: 06/22/24 1118 BP: 129/67 Pulse: [...] visit TARYN Kraft CNP documented in this [facility]04-22-2025 Note06/13/24 1022 BPCI Late Drop? Program late drop? No BPCI Outreach Assessment Selection Which outreach assessment are you completing? 30 Day BPCI - 30 Day Outreach Did patient answer phone call? [facility]04-22-2025 NoteBPCI 30 day outreach ADMIT DATE: 05/10/2024 DISCHARGE DATE: 05/16/2024 SURGERY: 05/10/24: s/p CABGx3 (PADILLA-LAD, RSVG-OM1, RSVG-PDA with endarterectomy), RAYMOND KIM with Dr. Krista WILKS: FELICIA, Parkinson's disease, CAD, HTN, DM2 EMR reviewed. CM spoke to the patient last week- patient was at [facility] with plans to discharge home soon. Chart reviewed for BPCI outreach. Phone call to patient, no answer, left VM to please return call. Will follow up for next BPCI outreach. Scheduled BPCI PRN call to check on the patient since home from rehab.[facility] 06-08-2024 Note06/08/2024: Referral received from LIZZIE Brand with the BPCI program, with request to update the social determinants of health questionnaire and assess for any social work needs. Outreach scheduled.[facility]04-15-2025 [facility]04-15-2025 NoteBPCI 21 day outreach ADMIT DATE: 05/10/2024 DISCHARGE DATE: 05/16/2024 SURGERY: 05/10/24: s/p CABGx3 (PADILLA-LAD, RSVG-OM1, RSVG-PDA with endarterectomy), RAYMOND KIM with Dr. Krista WILKS: FELICIA, Parkinson's disease, CAD, HTN, DM2 Called and spoke to the patient. The patient reports he feels well in general and the patient remains at [facility]. The patient stated he [...] and report to Cardiology. The patient sees [facility] in [place]. DM2 Patient reports facility is checking his [...] outreach. Sending referral to CHANTEL Tijerina for eval.[place] [address]-08-2025 Note 05/30/24 0933 BPCI Late Drop? Program late drop? No BPCI Outreach Assessment Selection Which outreach assessment are you completing? 14 Day BPCI - 14 Day Outreach Did patient answer phone call? [place] [address]-08-2025 NoteBPCI 14 day outreach ADMIT DATE: 05/10/2024 DISCHARGE DATE: 05/16/2024 SURGERY: 05/10/24: s/p CABGx3 (PADILLA-LAD, RSVG-OM1, RSVG-PDA with endarterectomy), JUDY, RAYMOND with Dr. Velasco EMR reviewed. The patient had Telemedicine visit with Cardiothoracic Surgery 05/25/24. Chart reviewed for BPCI outreach. Phone call to patient, no answer, left VM to please return call. Will follow up for next BPCI outreach. Scheduled BPCI 21 day outreach.[facility]04-03-2025 History of Present illness Narrative* Miguel Angel Handy, TARYN - WATER PLANT PUMP OPERATOR SUPERVISOR - 05/25/2024 1:00 PM EDT Images from the original note were not included. [facility]: [facility] [address] [facility] [address] Dept: [phone] Dept Loc: [phone] Visit type: Established patient Reason for Visit: [...] unable touse video. Patient location: Patient Location: Rehab . This patient encounter is appropriate andreasonable under the circumstances: Currently at [facility] . The patient has been advised [...] stated that they are currently in the [facility]. If the patientis a minor, permission [...] GDMT for CABG. Able to discharge to [facility] on POD#06. 05/25/24: Spoke with patient [...] redirect to the Timeline version of the [employer] Smart[employer]. There were no vitals filed for [...] visit TARYN Kraft CNP documented in this [place] [address]-01-2025 Note05/23/24 1116 BPCI Late Drop? Program late drop? No BPCI Outreach Assessment Selection Which outreach assessment are you completing? 7 Day BPCI - 7 Day Outreach Did patient answer phone call? [facility]04-01-2025 NoteBPCI 7 day outreach ADMIT DATE: 05/10/2024 DISCHARGE DATE: 05/16/2024 SURGERY: 05/10/24: s/p CABGx3 (PADILLA-LAD, RSVG-OM1, RSVG-PDA with endarterectomy), JUDY, RAYMOND with Dr. Velasco DISCHARGE DIAGNOSES: CAD [...] for next BPCI outreach-scheduled 14 day BPCI outreach.[facility]03-28-2025 Note05/19/24 1112 BPCI Late Drop? Program late drop? No BPCI Outreach Assessment Selection Which outreach assessment are you completing? 72 Hour BPCI - 72 Hour Outreach Did patient answer phone call? [facility]03-28-2025 NoteBPCI 72 hour outreach ADMIT [...] next BPCI outreach. Scheduled BPCI 7 day outreach.[facility]03-25-2025 [facility] 05-16-2024 Evaluation note* Diagnosis Onset [...] 2024 9:56am Atherosclerotic heart diseas e of [place] coronary artery without angina pectoris chronic July 06, 2024 9 :56am Carotid artery disease chronic 2024 9:56am Diastolic dysfunction chronic July 06, 2024 9:56am Mixed hyperlipidemia chronic July 06, 2024 9:56am [facility] Work Phone: 1(936) 427-971103-25-2025 Evaluation note* Diagnosis Onset Date Resolution Status [...] 16, 2024 12:37pm Diabetic polyneuropathy resolved M arch , 2025 12:37pm Malignant neoplasm of prostate resol shaquille May 16, 2024 12:37pm Status post three vessel coronary artery bypass 2024 resolved April 12:37pm Anemia acute July 06, 2024 9:56am Atherosclerotic heart diseas e of [place] coronary artery without angina pectoris chronic July 06, 2024 9 :56am Carotid artery disease chronic Ma y 2024 9:56am Diastolic dysfunction chronic July 06, 2024 9:56am Mixed hyperlipidemia chronic July 06, 2024 9:56am Anemia acute October 02, 2 025 11:28am Type 2 diabetes mellitus wit h hyperglycemia acute October 02 11:28am Atherosclerotic heart diseas e of [place] coronary artery without angina pectoris chronic October 02 11:28am Carotid artery disease chronic Au zofia 2024 11:28am Diastolic dysfunction chronic Sep ust 2024 11:28am Mixed hyperlipidemia chronic Augu st 2024 11:28am [facility] [employer] Work Phone: 1(793) 807-404103-25-2025 NoteBPCI Referral Received notification that the patient was discharged. Enrolling patient in BPCI program today. Scheduled 72 hour BPCI outreach. EMR reviewed. ADMIT DATE: 05/10/2024 DISCHARGE DATE: 05/16/2024 SURGERY: 05/10/24: s/p CABGx3 (PADILLA-LAD, RSVG-OM1, RSVG-PDA with endarterectomy), JUDY, RAYMOND with Dr. Velasco DISCHARGE DIAGNOSES: CAD [...] GDMT for CABG. Able to discharge to [facility] on POD#06.[facility]03-25-2025 History of Present illness Narrative* TARYN Clark [...] Will continue to monitor. * Abi Rios, SENIOR DEVELOPER - 05/16/2024 8:41 AM EDT Images from the original note were not included. PHYSICAL THERAPY [facility] Treatment Note Name/MRN: Nimisha Thrasher ([id number]) Date of : 1940 Age: 84 y.o. [...] original note were not included. PHYSICAL THERAPY [facility] Treatment Note Name/MRN: Nimisha Thrasher ([id number]) Date of : 1940 Age: 84 y.o. [...] Raw Score (No Stairs) : 13 JH-HLM -HLM Score: Walked 250 ft or [...] Minutes: 27 Minutes (tp; gait) Abi Rios SENIOR DEVELOPER Cosigned by Eufemia Murillo, PT at 05/15/2024 10:25 AM EDT * Jasmyn Mcnally, ERP ENGINEER - WATER PLANT PUMP OPERATOR SUPERVISOR - 05/15/2024 8:52 AM EDT Department of Internal Medicine Division of Endocrinology, Diabetes, & Metabolism Endocrinology Note Patient Name: Farhana Thrasher : 1940 AGE: 84 y.o. Room/Bed: T1-116/T1-116 A Admission Date: 05/10/2024 Visit Date: 05/15/2024 Reason for Endocrine Consult: post op heart Provider/Team Requesting Consult: CTS PCP: KELSEY MOON MD Outpt Roofer Applicator: No ASSESSMENT: DM2 with hyperglycemia and computer terminal operator insulin Stress hyperglycemia CABGX3 HLD/CAD Obesity Body [...] found for: CHOLHDLRATIO No results found for: [id number] No results found for: TSH, D8ZILQC, F9FLOTM, THYROIDAB Radiology reportsas per the Radiologist Radiology: POCT glucose meter Result Date: 05/10/2024 Performed by: [facility], [address] [place] [address] CLIA ID: [id number] POCT glucose meter Result Date: 05/10/2024 Performed by: [employer] [facility], [address] [place] [id number] CLIA ID: [id number] History/Other: Past Medical History: Past Medical History: [...] as documented in note. * Miguel Angel Handy, TARYN - WATER PLANT PUMP OPERATOR SUPERVISOR - 05/15/2024 8:20 AM EDT Images from the original note were not included. Cardiothoracic Surgery/[facility] Progress Note PATIENT NAME: Farhana Thrashre DATE: 05/15/24 HPI: 84 y.o. male referred [...] 3.8 3.8 CL 107 107 108* CO2 23 24 BUN 25* 30* 25* CREATININE [...] of 22 minutes were spent between the jmif-tq-yhct encounter, physical exam, reviewing the medical history, coordinating the patient's care, counseling/educating the patient, ordering medications/test/procedures, interpreting results and documenting clinical information in the patients electr on health record on the day of the encounter. The patient was seen and examined. Cardiac Core Medications: ASA, Statin, and BB EF: 55% (RAYMOND 05/10/24) Blood Conservation: Transfused. Truck Hopper: Dr. Elder Cosigned by Luis Parisi DO at 05/15/2024 9:02 PM EDT * Lilian Cisse MD - 05/14/2024 2:01 PM EDT Department of Internal Medicine Division of Endocrinology, Diabetes, & Metabolism Endocrinology Note Patient Name: Farhana Thrasher : 1940 AGE: 84 y.o. Room/Bed: [facility] A Admission Date: 05/10/2024 Visit Date: 05/14/2024 Reason for Endocrine Consult: post op heart Provider/Team Requesting Consult: CTS PCP: KELSEY MOON MD Outpt Roofer Applicator: No ASSESSMENT: DM2 with hyperglycemia and computer terminal operator insulin Stress hyperglycemia CABGX3 HLD/CAD Obesity Body [...] found for: CHOLHDLRATIO No results found for: [id number] No results found for: TSH, H7WRUYT, Y5FHMXU, THYROIDAB Radiology reportsas per the Radiologist Radiology: POCT glucose meter Result Date: 05/10/2024 Performed by: Leonie Angel [facility], [address] [place] [id number] CLIA ID: [id number] POCT glucose meter Result Date: 05/10/2024 [facility]formed by: [facility], [address] [place] [id number] CLIA ID: [id number] History/Other: Past Medical History: Past Medical History: [...] the date of this note. * Carter Le APRN - WATER PLANT PUMP OPERATOR SUPERVISOR - 05/14/2024 11:37 AM EDT Images from the original note were not included. Cardiothoracic Surgery/CCM Progress Note PATIENT NAME: Farhana DALLASN: [id number] DATE: 05/14/24 HPI: 84 y.o. male referred [...] of 20 minutes were spent between the iltg-nh-tenr encounter, physical exam, reviewing the medical history, coordinating the patient's care, counseling/educating the patient, ordering medications/test/procedures, interpreting results and documenting clinical information in the patients [facility] record on the day of the encounter. The patient was seen and examined independently andrelevant data reviewed by myself. A full chart review was performed. Patient discussed and plan of day developed from multidisciplinary rounds between Cardiothoracic Surgery (Cardiothoracic Surgeon, JULIO CESAR) and Critical Care Attending Cardiac Core Medications: ASA, Statin, and BB EF: 55% (RAYMOND 05/10/24) Blood Conservation: Transfused Truck Hopper: Dr. Elder Cosigned by Luz Hough DO at 05/14/2024 2:29 PM EDT Associated attestation - Luz Hough DO - 05/14/2024 2:29 PM EDT I have personally performed a dnri-im-kgzn diagnostic evaluation on this patient on date of service05/14/24. History, labs, imaging studies, and electronic medical record have been reviewed by me. This note documented by the []lodging house keeper [x]JULIO CESAR reflects my history, exam, and [...] IPR vs home early this week * TARYN Martinez CNP - 05/13/2024 10:12 AM EDT Images from the original note were not included. Cardiothoracic Surgery/[facility] Progress Note PATIENT NAME: Farhana [...] of 21 minutes were spent between the uyrd-ce-mteh encounter, physical exam, reviewing the medical history, coordinating the patient's care, counseling/educating the patient, ordering medications/test/procedures, interpreting results and documenting clinical information in the patients electr on health record on the day of the encounter. The patient was seen and examined independently andrelópezvant data reviewed by myself. A full chart review was performed. Patient discussed and plan of day developed from multidisciplinary rounds between Cardiothoracic Surgery (Cardiothoracic Surgeon, JULIO CESAR) and Critical Care Attending Cardiac Core Medications: ASA, Statin, and BB EF: 55% (RAYMOND 05/10/24) Blood Conservation: Transfused Truck Hopper: Dr. Elder Cosigned by Luz Hough DO at 05/13/2024 12:21 PM EDT Associated attestation - Luz Hough DO - 05/13/2024 12:21 PM EDT I have personally performed a hljq-yt-hvzw diagnostic evaluation on this patient on date of service05/13/24. History, labs, imaging studies, and electronic medical record have been reviewed by me. This note documented by the []lodging house keeper [x]JULIO CESAR reflects my history, exam, and [...] Thrasher : 1940 AGE: 84 y.o. Room/Bed: [facility]116/[facility] A Admission Date: 05/10/2024 Visit Date: 05/13/2024 Reason for Endocrine Consult: post op heart Provider/Team Requesting Consult: CTS PCP: KELSEY MOON MD Outpt Roofer Applicator: No ASSESSMENT: DM2 with hyperglycemia and fpc insulin Stress hyperglycemia CABGX3 HLD/CAD Obesity Body [...] found for: CHOLHDLRATIO No results found for: [id number] No results found for: TSH, G9JMXAP, A2FAQJY, THYROIDAB Radiology reportsas per the Radiologist Radiology: POCT glucose meter Result Date: 05/10/2024 Performed by: [facility], [address] [place] [id number] CLIA ID: [id number] POCT glucose meter Result Date: 05/10/2024 Performed by: [facility], [address] [place] [id number] CLIA ID: [id number] History/Other: Past Medical History: Past Medical History: [...] of this note. * Miguel Angel Handy, ERP ENGINEER - WATER PLANT PUMP OPERATOR SUPERVISOR - 05/12/2024 1:17 PM EDT Images from [...] for. Will continue to monitor. * Sosa Guzmánner - 05/12/2024 12:11 PM EDT Images from the original note were not included. PHYSICAL THERAPY [facility] Treatment Note Name/MRN: Nimisha Thrasher ([id number]) Date of : 1940 Age: 84 y.o. [...] precautions Ambulation Ambulation 1 Assistive device(s) used: Necynthiaie Assist level: Mod Assist Distance (ft): 100' Quality of gait: uneven step length, narrow MARIBEL, instability through all phases Cued to slow down Required assistance with managing device B AFOs already donned Exercises Exercises Comments: P&C 1-5 x10 reps, 6-9 x5 reps due to fatigue IS: 4680-8571 mL x5 reps Acapella: x5 reps Plan [...] Treatment Minutes: 26 Minutes (gait & tp) FRANKIE Hsu PTA Cosigned by Moses Biggs PT at 05/12/2024 12:53 PM EDT * Jasmyn Mcnally APRN - HEBER - 05/12/2024 9:08 AM EDT Department of Internal Medicine Division of Endocrinology, Diabetes, & Metabolism Endocrinology Note Patient Name: Farhana Thrasher : 1940 AGE: 84 y.o. Room/Bed: T1-116/T1-116 A Admission Date: 05/10/2024 Visit Date: 05/12/2024 Reason for Endocrine Consult: post op heart Provider/Team Requesting Consult: CTS PCP: KELSEY MOON MD Outpt Roofer Applicator: No ASSESSMENT: DM2 with hyperglycemia and fpc insulin Stress hyperglycemia CABGX3 HLD/CAD Obesity Body [...] found for: CHOLHDLRATIO No results found for: [id number] No results found for: TSH, S1NBQNY, P8XZQOS, THYROIDAB Radiology reportsas per the Radiologist Radiology: POCT glucose meter Result Date: 05/10/2024 Performed by: [facility], [address] [place] [address] CLIA ID: [id number] POCT glucose meter Result Date: 05/10/2024 Performed by: [facility], [address] [place] [address] CLIA ID: [id number] History/Other: Past Medical History: Past Medical History: [...] patient. In addition, I have reviewed the resident's/RESTORATIVE CARE TECHNICIAN/VERTICAL BORER's care plan and agree with those findings [...] imaging are reviewed as detailed in the resident's/RESTORATIVE CARE TECHNICIAN/VERTICAL BORER's note * Miguel Angel Handy, ERP ENGINEER - WATER PLANT PUMP OPERATOR SUPERVISOR - 05/12/2024 7:10 AM EDT Images from the original note were not included. Cardiothoracic Surgery/[facility] Progress Note PATIENT NAME: Farhana Thrasher DATE: 05/12/24 HPI: Nimisha Thrasher is a 84 y.o. male referred [...] PAP at night. Weaned off of pressors, [place] removed. Pain tolerable, up walking with nursing. [...] EF: 55% (RAYMOND 05/10/24) Blood Conservation: Transfused Truck Hopper: Dr. Elder Cosigned by Luz Hough DO at 05/12/2024 3:54 PM EDT Associated attestation - Luz Hough DO - 05/12/2024 3:54 PM EDT I have personally performed a janw-kn-zutk diagnostic evaluation on this patient on date of service05/12/24. History, labs, imaging studies, and electronic medical record have been reviewed by me. This note documented by the []lodging house keeper [x]JULIO CESAR reflects my history, exam, and [...] original note were not included. PHYSICAL THERAPY [facility] Initial Evaluation Name/MRN: Nimisha Thrasher ([id number]) Evaluation Date: 05/11/2024 Date of : 1940 [...] Problem List Diagnosis Date Noted CAD in [place] artery 05/10/2024 FELICIA (obstructive sleep apnea) 05/04/2024 [...] Assist Ambulation Ambulation 1 Assistive device(s) used: Nezzie Assist level: Min Assist, Mod Assist Distance [...] of Care supervision is transferred to a [facility] Therapy Services Physical Therapist. Goals and/or treatment plan was established in collaboration with patient/family/other representatives. * Stacey Llanos OT - 05/11/2024 11:13 AM EDT Images from the original note were not included. OCCUPATIONAL THERAPY [facility] Initial Evaluation Name/MRN: Nimisha Thrasher ([id number]) Evaluation Date: 05/11/2024 Date of : 1940 [...] Pt is cooperative and agreeable to OT. Lala present with pt permission. Pain: [place] Pain [...] Problem List Diagnosis Date Noted CAD in [place] artery 05/10/2024 FELICIA (obstructive sleep apnea) 05/04/2024 [...] 06/08/24 Therapy Time Individual Co-Treatment Co-Evaluation Time 5443-7329 AND 6347-2484 Minutes 42 (Timed treatment minutes: 25 (2-FA)) Patient's Occupational Therapy Plan of Care supervision is transferred to a [facility] Therapy Services Occupational Therapist. Goals and/or treatment plan was established in collaboration with patient/family/other representatives. Stacey Llanos OTR/L * Jasmyn Mcnally, ERP ENGINEER - WATER PLANT PUMP OPERATOR SUPERVISOR - 05/11/2024 9:01 AM EDT Department of Internal Medicine Division of Endocrinology, Diabetes, & Metabolism Endocrinology Note Patient Name: Farhana Thrasher : 1940 AGE: 84 y.o. Room/Bed: [facility]116/[facility] A Admission Date: 05/10/2024 Visit Date: 05/11/2024 Reason for Endocrine Consult: post op heart Provider/Team Requesting Consult: CTS PCP: KELSEY MOON MD Outpt Roofer Applicator: No ASSESSMENT: DM2 with hyperglycemia and fpc insulin Stress hyperglycemia CABGX3 HLD/CAD Obesity Body [...] Intake/Output Summary (Last 24 hours) at 05/11/2024 0901 Last data filed at 05/11/2024 0730 Gross [...] 1-50 Units/hr, Last Rate: 1.5 Units/hr (05/11/24 7688) lactated ringers, 250 mL, Last Rate: Stopped [...] found for: CHOLHDLRATIO No results found for: IPBQ83JMH No results found for: TSH, U4PDHED, P6OOGBC, THYROIDAB Radiology reportsas per the Radiologist Radiology: POCT glucose meter Result Date: 05/10/2024 [facility]formed by: [facility], [address] [place] [address] CLIA ID: [id number] POCT glucose meter Result Date: 05/10/2024 Performed by: Leonie Stanley [facility], [address] [place] [address] CLIA ID: [id number] History/Other: Past Medical History: Past Medical History: [...] patient. In addition, I have reviewed the resident's/RESTORATIVE CARE TECHNICIAN/VERTICAL BORER's care plan and agree with those findings [...] imaging are reviewed as detailed in the resident's/RESTORATIVE CARE TECHNICIAN/VERTICAL BORER's note * Miguel Angel Handy APRN - HEBER - 05/11/2024 6:55 AM EDT Images from the original note were not included. Cardiothoracic Surgery/CCM Progress Note PATIENT NAME: Farhana Thrasher DATE: 05/11/24 HPI: Nimisha Thrasher is a 84 y.o. male referred [...] or diaphoretic. Neck: Comments: Central line and [place]. Cardiovascular: Rate and Rhythm: Normal rate and [...] anemia/consumptive thrombocytopenia Plan: Patient status: ICU Remove [place]. Wean levophed as able, goal MAP>65. -Remove [...] EF: 55% (RAYMOND 05/10/24) Blood Conservation: Transfused Truck Hopper: Dr. Elder Cosigned by Luz Hough DO at 05/11/2024 5:59 PM EDT Associated attestation - Luz Hough DO - 05/11/2024 5:59 PM EDT I have personally performed a cffs-ir-gkhf diagnostic evaluation on this patient on date of service05/11/24. History, labs, imaging studies, and electronic medical record have been reviewed by me. This note documented by the []lodging house keeper [x]JULIO CESAR reflects my history, exam, and [...] issues receiving the product for transfusion at *36179 ([facility]) or *22514 ([facility]) Comment: Close clinical monitoring is indicated [...] Calle RCP - 05/10/2024 3:19 PM EDT [facility] Respiratory Care Department Progress Note Spontaneous [...] Pressure Control (05/10/241512) Resp Rate (Set): 12 (05/10/24 145) Vt (Set, mL): 400 mL (05/10/24 145) FiO2 (%): 40 % (05/10/241512) PEEP/CPAP (cm H2O): 8 cm H20 (05/10/241512) Inspiratory Time (sec): 0.9 sec (05/10/241450) Vitals Heart Rate: 75 (05/10/241512) Resp: 18 (05/10/241512) SpO2: 100 % (05/10/241512) Suctioning/Secretions Secretion Amount: Unable to assess (05/10/24 1217) ABG results Recent Labs 05/10/24 1105 05/10/24 1347 PHART 7.352 7.313* RIW9MDG 43.0 39.5 PO2ART 387.1* 177.8* IBW0HTP 23.3 19.6* S5SYQUQT Ventilator Ventilator Does this patient meet criteria for termination of mechanical ventilation Yes- Notified physician below Name of physician notified via secure chat or in person : nurse (NA if patient did not meet criteria) Comments: Thank you for involving Respiratory in the care of this patient, documented in this [facility]03-25-2025 Nurse Note* Clara Romero RN - 05/16/2024 10:24 AM EDT [facility] documented in this [facility]03-25-2025 NoteDischarge Summary: Cardiothoracic Surgery Farhana Thrasher, 84 y.o., 1940 ADMIT DATE: 05/10/2024 DISCHARGE DATE: 05/16/2024 VISIT STATUS: Admission CODE STATUS: Full Code DISCHARGING SURGEON: Daysi Velasco MD, Office Number: [phone] DISCHARGE DIAGNOSES: CAD s/p CABG T2DM, A1c [...] TEAM: Primary Care Physician: KELSEY MOON MD Truck Hopper: Dr. Elder SURGERY: 05/10/24: s/p CABGx3 (PADILLA-LAD, [...] GDMT for CABG. Able to discharge to [facility] on POD#06. DIAGNOSTICS: BP (!) 130/49 [...] % ointment Commonly known (more content not included)...[facility]03-25-2025 Hospital course Narrative* Miguel Angel Handy, ERP ENGINEER - WATER PLANT PUMP OPERATOR SUPERVISOR - 05/16/2024 10:11 AM EDT Images from the original note were not included. Discharge Summary: Cardiothoracic Surgery Farhana Thrasher, 84 y.o., 1940 ADMIT DATE: 05/10/2024 DISCHARGE DATE: 05/16/2024 VISIT STATUS: Admission CODE STATUS: Full Code DISCHARGING SURGEON: Daysi Velasco MD, Office Number: [phone] DISCHARGE DIAGNOSES: CAD s/p CABG T2DM, A1c [...] TEAM: Primary Care Physician: KELSEY MOON MD Truck Hopper: Dr. Elder SURGERY: 05/10/24: s/p CABGx3 (PADILLA-LAD, [...] GDMT for CABG. Able to discharge to [facility] on POD#06. DIAGNOSTICS: BP (!) 130/49 [...] UP: 05/25/24 at 01:00PM, phone call. [address] [facility] [address], [place] [address] Dept: [phone] Dept CORE CARDIAC MEDICATIONS PRESCRIBED AT DISCHARGE: [...] do not hesitate to contact us. SIGNED: TARYN Kraft CNP 05/16/2024, 10:19 AM Cosigned by Daysi Velasco MD at 05/16/2024 12:26 PM EDT documented in this [facility]03-25-2025 Hospital Discharge instructions* Discharge Instructions* Miguel Angel Handy, ERP ENGINEER - WATER PLANT PUMP OPERATOR SUPERVISOR - 05/16/2024 9:58 AM EDT Images from the original note were not included. [facility]: Cardiothoracic Surgery [address] [facility] #[phone] Notify us if the following occur - [...] Extended Emergency Contact Information Primary Emergency Contact: Lala Thrasher Mobile Relation: Spouse Belting Inspector needed? No Past Surgical History: Past Surgical History: Procedure Laterality Date CATARACT EXTRACTION Bilateral CHOLECYSTECTOMY PILONIDAL CYST EXCISION PROSTATECTOMY TONSILLECTOMY Immunization History: Immunization History Administered Date(s) Administered COVID-19, mRNA, LNP-S, PF, 50 mcg/0.5 mL 12/29/2022 Covid-19, Moderna Bivalent Booster, (Age 6y-11y) 09/01/2022 Moderna SARS-CoV-2 Vaccination 04/04/2020, 05/01/2020 Active Problems: Medical Problems Problem List * (Principal) CAD in [place] artery FELICIA (obstructive sleep apnea) History of [...] Minimal assistance Toileting Minimal assistance Feeding Independent Heart Coordinator Independent Med Delivery yes Wound Care Documentation [...] Intake/Output Summary (Last 24 hours) at 05/16/2024 0929 Last data filed at 05/16/2024 0030 Gross [...] Date: 05/10/24 Discharging to Facility/ Agency Name: [facility] Address: [address] [place], [place] [id number] Fax: Dialysis Facility (if applicable) Name: Address: Dialysis Schedule: Phone: Fax: Solidworks Mechanical Designer/Floor And Wall Applier Liquid signature: ICIAN SECTION Name: Farhana Thrasher Prognosis: good Condition at Discharge: stable Rehab Potential (if transferring to Rehab): good Recommended Labs or Other Treatments After Discharge: BMP to monitor creatinine and electrolytes daily. Lasix and K supplement. GIANNA wraps to BLE. PT/OT. The individual is being admitted to a nursing facility directly from an [facility] or a unit of a [place] [facility] that is not operated by or licensed by [facility] under section 5119.14 or 5160-3-15.1 5 The [...] GDMT for CABG. Able to discharge to [facility] on POD#06. PHYSICIAN SIGNATURE: Wound care/dressing [...] 01:00PM Post op follow up->phone call from ERP ENGINEER. In person visit to be scheduled once Dc'd from [facility]. [address] [place] [address] documented in this [facility]03-25-2025 Miscellaneous Notes* Care Coordination - Prema Chilel RN - 05/16/2024 9:33 AM EDT [facility]. Requested discharge order, completed LAURA and transportation be set up. * Care Coordination - ALVARADO Villavicencio - 05/16/2024 9:26 AM EDT CHANTEL arranged transport through [facility] to [facility] at 11:00 am. TCC, RN, Facility, Infrastructure Security Architect, Pt and Pt's spouse notified. * Care [...] ALVARADO Villavicencio - 05/15/2024 11:09 AM EDT SW reached [facility] to [facility] Licha stated that she just received pt's referral and that itneeded reviewed by the . Licha stated that it would be the end of the day when she would know if ptis accepted. CHANTEL provided TCC's information for Licha to follow up when acceptance is approved/denied. CHANTEL notified pt and will continue to follow. * Care Coordination - Kay Gutierrez - 05/15/2024 10:02 AM EDT Referral placed to MICHELINE [facility] per TCC request. Await review and response regarding ability to accept. TCC notified. * Care Coordination - Unknown Case Management - 05/15/2024 10:02 AM EDT Patient Choice Patient Name: FARHANA THRASHER Date of : 1940 All Providers Sent Referral Name: [facility] Address: [address] [place] [address] * Care Coordination - Prema Chilel RN - 05/15/2024 9:49 AM EDT Care Management Progress Note Patient remains in ICU s/p CABG x 3 05/10. PT recommending IPR. Discussion had with Patient, Spouse and PARCEL POST ORDER CLERK at the bedside regarding Rehab. Patient is requesting a referral to [facility]. Referral requested to [facility] in [facility]. Length of Stay (Days): 5 GMLOS: 5.8 [...] Assess Nutritional Intake Outcome: Progressing * Op Rangel - Daysi Velasco MD - 05/10/2024 7:23 [...] Intraoperative transesophageal echocardiography Surgeon: Daysi Velasco MD Medart Operator(s): [] Yesenia Taylor [] Gladis Melgar [x] [...] protected. An appropriate timeout was conducted. [facility] Bypass: A LEFT [...] proceeded with closure. The sternum was reapproximated ryszrg-af-ylram wires and the overlying tissues were closed in multiple layers. The patient was transported to the intensive care unit in serious but stable condition. documented in this [facility]03-24-2025 NoteSW reached out to Licha at [facility]. Licha stated that she just received pt's referral and that it needed reviewed by the Dr. Licha stated that it would be the end of the day when she would know if pt is accepted. SW provided TCC's information for Licha to follow up when acceptance is approved/denied. CHANTEL notified pt and will continue to follow. [facility]03-24-[address] [facility] per TCC request. Await review and response regarding ability to accept. TCC notified. [facility]03-24-2025 NoteCare Management Progress Note Patient remains in ICU s/p CABG x 3 05/10. PT recommending IPR. Discussion had with Patient, Spouse and PARCEL POST ORDER CLERK at the bedside regarding Rehab. Patient is requesting a referral to [facility]. Referral requested to [facility]. Length of Stay (Days): 5 GMLOS: 5.8[facility]03-24-2025 NoteCardiothoracic Surgery/CCM Progress Note PATIENT NAME: Farhana [...] of 22 minutes were spent between the ozyh-xc-tbmo encounter, physical exam, reviewing the medical history, coordinating the patient's care, counseling/educating the patient, ordering medications/test/procedures, interpreting results and documenting clinical information in the patients electronic health record on the day of the encounter. The patient was seen and examined. Cardiac Core Medications: ASA, Statin, and BB EF: 55% (RAYMOND 05/10/24) Blood Conservation: Transfused. Truck Hopper: Dr. Elder [facility] [id number] NotePHYSICAL THERAPY [facility] Initial Evaluation Name/MRN: Nimisha Thrasher ([id number]) Evaluation Date: 05/11/2024 Date of : 1940 [...] Problem List Diagnosis Date Noted CAD in [place] artery 05/10/2024 FELICIA (obstructive sleep apnea) 05/04/2024 [...] Raw Score (No Stairs) : 11 [facility] Score: Walked 10 steps or more (i.e. walked to restroom) Plan Pt would benefit from skilled acute PT services to address Strengthening, Gait Training, Bal (more content not included)...[facility]03-20-2025 NoteNutrition Assessment Type and Reason for Visit: Initial, Consult, Patient Education (s/p open heart surgery) Nutrition Recommendations/Plan: Continue 5 carb choices (75 g/meal) diet as ordered Per MNT protocol, will order Ensure HP BID Monitor swallowing for indication for HAT MAKER evaluation. Pt reports hx of swallowing issues [...] loss Fluid Accumulation: Moderate to Severe Extremities Surface Logging Systems Logger Strength: Not Performed Nutrition Assessment: Per chart: [...] On: Kcal/kg Weight Used for Energy Requirements: [place] Weight for Energy Calculation (kg): 67.1 kg (25-30 kcal/kg) Total Energy Requirements (kcals/day): 9407-5362 Weight Used for Protein Requirements: [place] Weight in Kg Used for Protein Requirements: [...] Therapies: Adult diet R (more content not included)...[facility]03-20-2025 Consult note* Telma Morfin, RD - 05/11/2024 1:30 PM EDTAssociated Order(s): IP CONSULT TO DIETITIAN Nutrition Assessment Type and Reason for Visit: Initial, Consult, Patient Education (s/p open heart surgery) Nutrition Recommendations/Plan: Continue 5 carb choices (75 g/meal) diet as ordered Per MNT protocol, will order Ensure HP BID Monitor swallowing for indication for HAT MAKER evaluation. Pt reports hx of swallowing issues [...] loss Fluid Accumulation: Moderate to Severe Extremities Surface Logging Systems Logger Strength: Not Performed Nutrition Assessment: Per chart: [...] On: Kcal/kg Weight Used for Energy Requirements: [place] Weight for Energy Calculation (kg): 67.1 kg (25-30 kcal/kg) Total Energy Requirements (kcals/day): 9237-6359 Weight Used for Protein Requirements: [place] Weight in Kg Used for Protein Requirements: [...] lb) (06/13) % Weight Change (Calculated): 3 [place] Body Weight (lbs) (Calculated): 148 lbs [place] Body Weight (Kg) (Calculated): 67 kg % [place] Body Weight (Calculated): 144.8 % BMI (kg/m2) [...] to determine Telma Morfin RD, LD Contact: *[phone] or via Crossfader chat * Denae Rosales - 05/11/2024 8:52 AM EDTAssociated Order(s): IP CONSULT TO CARDIAC REHAB Received referral and reviewed chart. Phase II Cardiopulmonary Rehab Referral discussed with Farhana Thrasher. Patient prefers cardiopulmonary rehab at [facility]. Given information on program at preferred location. * Jasmyn Mcnally APRN - WATER PLANT PUMP OPERATOR SUPERVISOR - 05/10/2024 12:25 PM EDTAssociated Order(s): IP CONSULT TO ENDOCRINOLOGY Department of Internal Medicine Division of Endocrinology, Diabetes, & Metabolism Endocrinology Note Patient Name: Farhana Thrasher : 1940 AGE: 84 y.o. Room/Bed: OR/NONE Admission Date: 05/10/2024 Visit Date: 05/10/2024 Reason for Endocrine Consult: post op heart Provider/Team Requesting Consult: CTS PCP: KELSEY MOON MD Outpt Roofer Applicator: No ASSESSMENT: DM2 with hyperglycemia and fpc insulin Stress hyperglycemia CABGX3 HLD/CAD Obesity Body [...] found for: CHOLHDLRATIO No results found for: FOLD29BJF No results found for: TSH, U4IKZUZ, F8VMCXD, THYROIDAB Radiology reportsas per the Radiologist Radiology: POCT glucose meter Result Date: 05/10/2024 Performed by: [facility], [address] [place] [id number] CLIA ID: [id number] POCT glucose meter Result Date: 05/10/2024 Performed by: [facility], [address] [place], [place] [address]IA ID: [id number] History/Other: Past Medical History: Past Medical History: [...] patient. In addition, I have reviewed the resident's/RESTORATIVE CARE TECHNICIAN/VERTICAL BORER's care plan and agree with those findings [...] imaging are reviewed as detailed in the resident's/RESTORATIVE CARE TECHNICIAN/VERTICAL BORER's note * Miguel Angel Handy, ERP ENGINEER - WATER PLANT PUMP OPERATOR SUPERVISOR - 05/10/2024 12:17 PM EDT Images from the original note were not included. [facility]: Critical Care Consultation Note Date: 05/10/24 PATIENT NAME: Farhana Thrasher : 1940 (84 y.o.) Reason for Consult: Critical Care & Vent Management HPI: Nimisha Thrasher is a 84 y.o. male referred [...] Comments: ETT/OG. Neck: Comments: Central line and [place]. Cardiovascular: Rate and Rhythm: Normal rate and [...] PM EDT I have personally performed a iyak-oz-ppdb diagnostic evaluation on this patient on date of service05/10/24. History, labs, imaging studies, and electronic medical record have been reviewed by me. This note documented by the []lodging house keeper [x]JULIO CESAR reflects my history, exam, and [...] set to back up -monitor hemodynamics via [place] bárbara. Currently on low dose epi gtt [...] so far today, excludingprocedures. documented in this [facility]03-20-2025 NoteOCCUPATIONAL THERAPY [facility] Initial Evaluation Name/MRN: Nimisha Thrasher ([id number]) Evaluation Date: 05/11/2024 Date of : 1940 [...] Pt is cooperative and agreeable to OT. Douglass present with pt permission. Pain: [place] Pain [...] Problem List Diagnosis Date Noted CAD in nan[place] artery 05/10/2024 FELICIA (obstructive sleep apnea) 05/04/2024 [...] Daily Activity Raw Score: 14 ADL Inpatient [facility] G-Code Modifier: CK Plan Pt would benefit [...] Learning: None Education Outcome: (more content not included)...[facility] 05-11-2024 NoteReceived referral and reviewed chart. Phase II Cardiopulmonary Rehab Referral discussed with Farhana Thrasher. Patient prefers cardiopulmonary rehab at [facility]. Given information on program at preferred location. [facility]03-19-2025 [facility] Respiratory Care Department Progress Note Spontaneous Awakening Trial Wean Screen SpO2>/=88%: Yes (05/10/241512) FiO2 PEEP HR <140 BPM: Yes (05/10/241512) RR MAP >/= 65mmHg: Yes (05/10/241512) Arterial pH >7.30: Yes (05/10/241512) Safety Screen Spontaneous Breathing Trial (SBT - RT) : Proceed with SBT - No exclusion criteria met (05/10/241512) Spontaneous Breathing Trial Weaning Start Time: 1451 (05/10/241512) Weaning Tidal Volume: 702 mL (05/10/241512) Weaning Respiratory Rate: 17 (05/10/241512) Spontaneous Minute Volume (MV): 9.83 (05/10/241512) Total RSBI: 24 (05/10/241512) Weaning Tolerance: Excellent (05/10/241512) Weaning Stop Time: 151 (05/10/241512) Weaning Duration (min): 30 (05/10/241512) Spontaneous [...] 05/10/24 1105 05/10/24 1347 PHART 7.352 7.313* EMG7MXV 43.0 39.5 PO2ART 387.1* 177.8* DIT3CVM 23.3 19.6* R7FWZREP Ventilator Ventilator Does this patient meet criteria for termination of mechanical ventilation Yes- Notified physician below Name of physician notified via secure chat or in person : nurse (NA if patient did not meet criteria) Comments: Thank you for involving Respiratory in the care of this patient, [facility]03-19-2025 NotePatient: Nimisha Thrasher Procedure Summary Date: 05/10/24 Room / Location: [facility] OR [address] [place] [address] Operating Room Anesthesia Start: 722 Anesthesia Stop: [...] Allowed opportunity for questions and acknowledgement of understanding.[facility] [id number] NotePatient: Nimisha Thrasher Procedure Summary Date: 05/10/24 Room / Location: [address] Operating Room Anesthesia Start: 722 Anesthesia Stop: [...] discharged once all PACU criteria has been met.[facility] [id number] NoteCentral Venous Line: Date/Time: 05/10/2024 8:00 AM [...] complications. Staffing Performed: anesthesiologist Anesthesiologist: [place] [facility]03-19-2025 Note Arterial Line: Date/Time: 05/10/2024 7:30 [...] of chloraprep and sterile gloves Staffing Performed: [facility] Resident/MEETING SPECIALIST: Sheldon Martin APRN - [facility]03-19-2025 Note Airway Date/Time: 05/10/2024 7:30 AM Urgency: scheduled General Information and Staff Patient location during procedure: Procedural Resident/MEETING SPECIALIST: TARYN Mcnair CRNA Performed: MEETING SPECIALIST Indications and Patient Condition Indications for airway [...] Additional Comments Atraumatic placement of ETT, dentition intactMyMichigan Medical [facility]03-19-2025 NoteH&P reviewed. The patient was examined and there are no changes to the H&P. [facility]03-19-2025 History and physical note* Daysi Velasco MD - 05/10/2024 7:08 AM EDT H&P reviewed. The patient was examined and there are no changes to the H&P. Source Note - Daysi Velasco MD - 04/25/2024 12:00 PM EST Images from the original note were not included. [facility] CARDIOVASCULAR & THORACIC SURGERY [address] [facility] [address] Dept: [phone] Dept Loc: [phone] Visit type: New Reason for Visit: Multivessel [...] right coronary artery. History of Present Illness Nimisha Thrasher is a 84 y.o. male referred [...] This note may have been dictated using Open Utility Medical Practice Edition 2.6 and/or EventBoard Voice Recognition Feature. The document was proofread, however unrecognized voice recognition e commerce manager errors may be present. documented in this [facility]03-13-2025 NotePatient: Nimisha Thrasher Procedure Information Date/Time: 05/10/24 0730 Procedures: CORONARY ARTERY BYPASS GRAFT (Chest) - 7:30 am, 5 hours ECHOCARDIOGRAM, TRANSESOPHAGEAL Location: [facility] OR Operating Room Surgeons: Daysi Velasco MD Relevant Problems Anesthesia Also has central sleep apnea (+) History of motion sickness (+) FELICIA (obstructive sleep apnea) Cardio (+) CAD in nan[place]k artery Pulmonary (+) FELICIA (obstructive sleep apnea) [...] Additional Equipment: ultrasound, Transport Vent and Pacer [facility] [employer] [id number] NoteComprehensive Pre Surgical History and Physical ? Name: Farhana Thrasher : 1940 (Age-84 y.o.) Date of Service: Pt seen/examined on 05/04/2024 Procedure Information Date/Time: 05/10/24 0730 Procedures: CORONARY ARTERY BYPASS GRAFT (Chest) - 7:30 am, 5 hours ECHOCARDIOGRAM, TRANSESOPHAGEAL Location: [facility] OR [address] [place] [address] Operating Room Surgeons: Daysi Velasco MD Chief [...] - Managed by Dr. Elder in cardiology ([place]) 4) Parkinsonism - pt denies dx of [...] No new complaints. No (more content not included)...[facility]03-04-2025 Note* Addendum Note - TARYN Martinez CNP - 04/25/2024 1:57 PM ESTAddended by: CARTER LE on: 04/25/2024 01:57 PM Modules accepted: Orders [facility] [id number] Miscellaneous Notes* Addendum Note - TARYN Martinez [...] mouth rinse [] Other: documented in this [facility]03-04-2025 NotePrep for Procedure Order Request: 04/25/24 Surgeon: Dr. Velasco Surgery/Procedure: CABG, RAYMOND Diagnosis: CAD Plan Admit: yes PAT Appointment: yes Date if yes: 05/04/24 10:30 am [facility] Date of Surgery/Procedure: 05/10/24 7:30 am Medications: [] Hold as directed by CTS: [x] Per PAT protocol Medication needed prescribed: [] None [x] Nasal ointment and mouth rinse [] Other: [facility]03-04-2025 Telephone encounter Note* Telephone Encounter - Leeanna [...] Nasal ointment and mouth rinse [] Other: [facility] [id number] History of Present illness Narrative* Daysi Velasco MD - 04/25/2024 12:00 PM EST Images from the original note were not included. [facility] CARDIOVASCULAR & THORACIC SURGERY [address] [facility] [address] Dept: [phone] Dept Loc: [phone] Visit type: New Reason for Visit: Multivessel [...] right coronary artery. History of Present Illness Nimisha Thrasher is a 84 y.o. male referred [...] This note may have been dictated using Open Utility Medical Practice Edition 2.6 and/or EventBoard Voice Recognition Feature. The document was proofread, however unrecognized voice recognition e commerce manager errors may be present. documented in this [facility]03-04-2025 [facility] CARDIOVASCULAR & THORACIC SURGERY [address] [facility] [address] Dept: [phone] Dept Loc: [phone] Visit type: New Reason for Visit: Multivessel [...] right coronary artery. History of Present Illness Nimisha Thrasher is a 84 y.o. male referred [...] tenderness. Abdominal: Julio Cesar (more content not included)...[facility]03-03-2025 Chief complaint+Reason for visit Narrative* Chief Complaint [...] 8:24 am Atherosclerotic heart diseas e of [place] coronary artery without angina pectoris April 24, [...] 9:56a m Atherosclerotic heart diseas e of [place] coronary artery without angina pectoris July 06, 2024 9:56am Carotid artery disease July 06, 2024 9: 56am Diastolic dysfunction July 06, 2024 9:5 6am Mixed hyperlipidemia July 06, 2024 9:56 am [facility] Work Phone: 1(253) 475-150003-03-2025 Evaluation note* Diagnosis Onset Date Resolution Status Admit Date Abnormal cardiovascular stre ss test acute April 24, 2024 8:24am Chest pain acute April 24 8:24am Atherosclerotic heart diseas e of [place] coronary artery without angina pectoris chronic April 24, 2024 8:24am Coronary artery disease acute M 2024 12:37pm [...] 2024 9:56am Atherosclerotic heart diseas e of [place] coronary artery without angina pectoris chronic July 06, 2024 9 :56am Carotid artery disease chronic Ma y 2024 9:56am Diastolic dysfunction chronic July 06, 2024 9:56am Mixed hyperlipidemia chronic July 06, 2024 9:56am [facility] Work Phone: 1(556) 288-441402-28-2025 [facility]01-30-2025 Evaluation note* Diagnosis Onset Date Resolution Status Admit Date Atherosclerotic heart diseas e of [place] coronary artery without angina pectoris chronic March 23 1:16pm Carotid artery disease chronic Ja nuary 2024 1:16pm Diabetes mellitus chronic March 23, 2024 1:16pm Diastolic dysfunction chronic Nahum uary 2024 1:16pm Mixed hyperlipidemia chronic Laron ricki 2024 1:16pm Parkinsonism chronic February 1:16pm Abnormal cardiovascular stre ss test acute April 24, 2024 8:24am Chest pain acute April 24 8:24am Atherosclerotic heart diseas e of [place] coronary artery without angina pectoris chronic April 24, 2024 8:24am Coronary artery disease acute M 2024 12:37pm Debility acute May 16 12:37pm Diabetic polyneuropathy acute 2024 12:37pm Essential (primary) hypertension acu te May [...] apnea, obstructive chronic May 16, 2024 12:37pm [facility] Work Phone: 1(240) 200-724401-30-2025 Evaluation note* Diagnosis Onset Date Resolution Status Admit Date Atherosclerotic heart diseas e of [place] coronary artery without angina pectoris chronic March [...] 24 8:24am Atherosclerotic heart diseas e of [place] coronary artery without angina pectoris chronic April [...] April 12:37pm Atherosclerotic heart diseas e of [place] coronary artery without angina pectoris chronic June 9:56am Carotid artery disease chronic Ma y 2024 9:56am Diastolic dysfunction chronic July 06, 2024 9:56am Mixed hyperlipidemia chronic July 06, 2024 9:56am [facility] Work Phone: 1(871) 854-278601-30-2025 Evaluation note* Diagnosis Onset Date Resolution Status Admit Date Atherosclerotic heart diseas e of [place] coronary artery without angina pectoris chronic March [...] 24 8:24am Atherosclerotic heart diseas e of [place] coronary artery without angina pectoris chronic April 8:24am Coronary artery disease acute M 2024 12:37pm [...] 2024 9:56am Atherosclerotic heart diseas e of [place] coronary artery without angina pectoris chronic June 9:56am Carotid artery disease chronic Ma y 2024 9:56am Diastolic dysfunction chronic July 06, 2024 9:56am Mixed hyperlipidemia chronic July 06, 2024 9:56am [facility] Work Phone: 1(498) 710-946404-07-2022 Influenza virus A and B RNA and SARS-CoV-2 (COVID-19) N gene panel BRIAN+probe (Resp)COVID 19 RESULT: SARS-CoV-2 (Agent of COVID-19) Not Detected by RT-PCR or equivalent method. celina [id number]_[employer] (AVNI)_EUA This test was developed and its performance characteristics determined by [facility] [place]. This test has been authorized by FDA under an Emergency Use Authorization (EUA). This test has been validated in accordance with the FDA's Guidance Document Policy for DiagnosticsTesting in Laboratories Certified to Perform High Complexity Testing under CLIA prior to Emergency use Authorization for Coronavirus Disease 2019 during the Public Health Emergency issued on April 22, 2019. Test performed by [facility], [place] [facility] [place], [facility] [place] [address]. INFLUENZA A PCR: Negative for Influenza A by RT-PCR INFLUENZA B PCR: Negative for Influenza B by [facility]-PCRAultman Hospital on above: Performed By: #### [id number] #### [facility] CLIA [id number] [address] [place] [address] [address]04-07-[address]22 NoteHNO ID: [id number] Author: Yoselin Khan APRN.WATER PLANT PUMP OPERATOR SUPERVISOR Service: ? Author Type: Nurse Practitioner Type: Progress Notes Filed: 05/29/2021 10:25 AM Note Text: Subjective Patient came in because he was exposed to covid a week ago and has no symptoms at this time. The history is provided by the patient. No early morning was used. Review of Systems Constitutional: Negative. [...] as directed) blood sugar diagnostic (ACCU-CHEK CLARITZA) [facility] test strip CHECK [...] - COVID WITH FLUA+B, ROUTINE Yoselin Khan APR[facility] History of Present illness Narrative* Yoselin Khan APRN.WATER PLANT PUMP OPERATOR SUPERVISOR - 05/29/2021 10:09 AM EDT Subjective Patient came in because he was exposed to covid a week ago and has no symptoms at this time. The history is provided by the patient. No early morning was used. Review of Systems Constitutional: Negative. [...] as directed) blood sugar diagnostic (ACCU-CHEK CLARITZA) [facility] test strip CHECK [...] - COVID WITH FLUA+B, ROUTINE Yoselin Khan APRN.WATER PLANT PUMP OPERATOR SUPERVISOR documented in this [facility] NoteHNO ID: [id number] Author: Alix Valle APRN.HEBER Service: ? Author Type: Nurse Practitioner Type: Progress Notes Filed: 05/23/2021 3:33 PM Note Text: This note was created using NetProspexriter. Subjective Farhana Thrasher is a 81 year old male who presents after exposure to COVID x 1 day from with COVID pneumonia. Per patient, they share a bed and both wear CPAP machines at night for EFLICIA. Patient denies fever, chills, chest pain, SOB, [...] insulin needles, DISPOSABLE, (PEN NEEDLE) 31 X 516 Ndle Use as directed. glimepiride 4 mg [...] as directed) blood sugar diagnostic (ACCU-CHEK CLARITZA) [facility] test strip CHECK [...] ASYMPTOMATIC ELECTIVE COVID-19 Sadiq Massey TEACHING PROVIDER (Physician/PA/ERP ENGINEER) NOTE OF PERSONAL INVOLVEMENT IN CARE: I have personally seen and examined the patient and performed the medical decision-making components. I have reviewed the Advanced Practice Registered Nurse (ERP ENGINEER) Student's documentation and verified the findings in the note as written. Any additions or changes are noted in bold/italics. Signature: Alix Tori Date: 05/23/2021 Time: 3:[address] [facility]04-01-2022 Instructions* Patient Instructions* Sadiq Massey - 05/23/2021 [...] to your local emergency facility: Notify the engraver set up operator that you are seeking care for [...] can be around others. documented [facility] History of Present illness Narrative* Alix Valle APRN.WATER PLANT PUMP OPERATOR SUPERVISOR - 05/23/2021 11:42 AM EDT This note was created using NetProspexriter. Subjective Farhana Trhasher is a 81 year old male who [...] ASYMPTOMATIC ELECTIVE COVID-19 Sadiq Massey TEACHING PROVIDER (Physician/PA/ERP ENGINEER) NOTE OF PERSONAL INVOLVEMENT IN CARE: I have personally seen and examined the patient and performed the medical decision-making components. I have reviewed the Advanced Practice Registered Nurse (ERP ENGINEER) Student's documentation and verified the findings in the note as written. Any additions or changes are noted in bold/italics. Signature: Alix Valle Date: 05/23/2021 Time: 3:32 PM documented in this encounter[facility]-2017 [facility] risk assessmentWhealthsource [facility] Work Phone: [phone] Fall risk [id number] risk assessmentBloaklawn psychiatric center [employer] [facility] Work Phone: Discharge summary Author [facility]ara [facility] Note Date/Time September 08, 2024 1:22 pm [facility] Medical Records Department [address] [place] [address] Emergency Department Summary 09/08/24 MR#: [id number] Acct: [id number] Name: Joaquin THRASHER Rep #:[id number] 0 : 1940 84 From: Tiara Carlin [...] mild nausea and fullness in his head. [facility] Medical History Carotid artery disease Malignant neoplasm of prostate Mixed hyperlipidemia Hepatitis B GERD (gastroesophageal reflux disease) Neuropathy Essential hypertension Syncope Wide-complex tachycardia Premature ventricular contraction Premature atrial contractions Sinus bradycardia Atherosclerotic heart disease of [place] coronary artery without angina pectoris Diabetes type [...] (Auto) 65.0 Lymph % (Auto) 17.6 L Yancey % (Auto) 13.8 H Eos % (Auto) [...] aorta. Reading Location: [facility] Rhythm Strip Rhythm Strip: Sinus Rhythm Rate: [...] return to the emergency room. Print Language: Sierra Leonean Disposition Disposition: Home, Self Care What to do if you have Problems For any increased pain, shortness of breath, bleeding, nausea or vomiting, chestpain, or any unexpected problems, contact your Primary Care Provider. Call [facility] ([phone]) or report to the closest Emergency Room. Call 911 if necessary. 09/08/24 1322 <Electronically signed by Tiara Alston DO> Cosigner Signature (if applicable): CC: Dr. Fredis Moon MD ~ Signed [facility] Work Phone: Evaluation noteNo assessment information available [facility] Work Phone: Evaluation note* Diagnosis Close exposure to COVID-19 virus- Primary [facility] this [facility]* Diagnosis Close exposure to COVID-19 virus- Primary documented in this encounter [facility] note* Diagnosis Onset Date Resolution Status Carotid artery disease acute Premature atrial contractions acute Premature ventricular contraction acute Syncope acute Atherosclerotic heart diseas e of [place] coronary artery without angina pectoris chronic Essential hypertension chron ic Mixed hyperlipidemia [facility] Work Phone: Evaluation note* Diagnosis Onset Date Resolution Status Bilateral lower extremity edema acute Carotid artery disease acute Atherosclerotic heart diseas e of [place] coronary artery without angina pectoris chronic Essential hypertension chron ic Mixed hyperlipidemia [facility] Work Phone: Evaluation note* Diagnosis 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, unspecified whether [place] or transplanted heart (HCC)- Primary Type 2 diabetes mellitus with diabetic neuropathy, without long-term current use of insulin (HCC) CAD (coronary artery disease) Coronary atherosclerosis of unspecified type of vessel, [place] or graft documented in this encounter [facility] note* Diagnosis CAD in [place] artery- Primary Preoperative clearance Unspecified pre-operative examination 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 (CODE) CAD (coronary artery disease) Coronary atherosclerosis of unspecified type of vessel, [place] or graft documented in this encounter [facility] note* Diagnosis CAD in [place] artery- Primary Preoperative clearance Unspecified pre-operative examination 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 (CODE) CAD in [place] artery CAD (coronary artery disease) Coronary atherosclerosis of unspecified type of vessel, [place] or graft S/P CABG (coronary artery bypass graft) Postsurgical aortocoronary bypass status [facility]* Diagnosis S/P CABG (coronary artery bypass graft)- Primary Postsurgical aortocoronary bypass status [facility] this encounter [facility]* Diagnosis S/P CABG (coronary artery bypass graft)- Primary Postsurgical aortocoronary bypass status documented in this encounter [facility]* Diagnosis CAD in [place] artery S/P CABG (coronary artery bypass graft) Postsurgical aortocoronary bypass status [facility] Discharge instructionsAdditional Instructions Your workup today was largely normal. Please follow-up outpatient with Dr. Moon as scheduled next week. You continue to have intermittent episodes of dizziness/vertigo please also follow-up with Dr. Dey. If your symptoms progress or worsen please return to the emergency room.[facility] Work Phone: Reason for referral (narrative)No reason for referral information availableWGenesis Hospital Work Phone: Reason for visit Narrative* Auth/Cert (Routine) Specialty Diagnoses / Procedures Referred By Contac t Referred To Contact Diagnoses CAD (coronary artery disease) Procedures TN CABG W/ARTERIAL GRAFT THREE ARTERIAL GRAFTS TN ECHO TRANSESOPHAG R-T 2D W/PRB IMG ACQUISJ I&R CORONARY ARTERY BYPASS GRAFT ECHOCARDIOGRAM, TRANSESOPHAGEAL Velasco, Daysi Perry MD [address] [place] [address], [address] [place] [address] Phone: tel: fax: Referral ID Status Reason Start Date Expiration Date Visits Re quested Visits Authorized [id number] 04/25/2024 1 1 [facility] Chief Complaint and Reason for Visit Chief Complaint SLEEP APNEA B/L DROP FOOT Chief Complaint B/L DROP FOOT Chief Complaint B/L DROP FOOT Neuralgia and neuritis, R20.0 Chief Complaint Neuralgia and neurit is, R20.0 Chief Complaint 1 Y FU DM II WITH DIABETIC POLYNEUROPATHY Reason for Visit Carotid artery disea se Premature atrial contractions Premature ventricular contraction Syncope Atherosclerotic heart disease of [place] coronary artery without angina pectoris Essential hypertension Mixed hyperlipidemia Chief Complaint Obstructive sleep ap brigid (adult) (pediatric) Chief Complaint Obstructive sleep ap brigid (adult) (pediatric) FALL Chief Complaint FALL 1 Y FU E-ORDER Reason for Visit Bilateral lower extr emity edema Carotid artery disease Atherosclerotic heart disease of [place] coronary artery without angina pectoris Essential hypertension Mixed hyperlipidemia Chief Complaint 1 Y FU E-ORDER Reason for Visit Bilateral lower extr emity edema Carotid artery disease Atherosclerotic heart disease of [place] coronary artery without angina pectoris Essential hypertension [...] Admit Date Atherosclerotic heart diseas e of [place] coronary artery without angina pectoris March 23, 2024 1:16pm Carotid artery disease March 23 1:16pm Diabetes mellitus March 23, 2024 1 :16pm Diastolic dysfunction March 23, 2024 1:16pm Mixed hyperlipidemia March 23, 2024 1:16pm Parkinsonism March 23, 2024 1 :16pm Abnormal cardiovascular stress test 2024 8:24am Chest pain April 24, 2024 8:24 am Atherosclerotic heart diseas e of [place] coronary artery without angina pectoris April 24, [...] 07am Chief Complaint Admit Date 1 Y March 23, 2024 1 :16pm CAD ASHD [...] Admit Date Atherosclerotic heart diseas e of [place] coronary artery without angina pectoris March 23, 2024 1:16pm Carotid artery disease March 23 1:16pm Diabetes mellitus March 23, 2024 1 :16pm Diastolic dysfunction March 23, 2024 1:16pm Mixed hyperlipidemia March 23, 2024 1:16pm Parkinsonism March 23, 2024 1 :16pm Abnormal cardiovascular stress test Will 2024 8:24am Chest pain April 24, 2024 8:24 am Atherosclerotic heart diseas e of [place] coronary artery without angina pectoris April 24, [...] 2024 12:37pm Atherosclerotic heart diseas e of [place] coronary artery without angina pectoris July 06, [...] Admit Date Atherosclerotic heart diseas e of [place] coronary artery without angina pectoris March 23, 2024 1:16pm Carotid artery disease March 23 1:16pm Diabetes mellitus March 23, 2024 1 :16pm Diastolic dysfunction March 23, 2024 1:16pm Mixed hyperlipidemia March 23, 2024 1:16pm Parkinsonism March 23, 2024 1 :16pm Abnormal cardiovascular stress test Will 2024 8:24am Chest pain April 24, 2024 8:24 am Atherosclerotic heart diseas e of [place] coronary artery without angina pectoris April 24, [...] 9:56a m Atherosclerotic heart diseas e of [place] coronary artery without angina pectoris July 06, [...] 8:24 am Atherosclerotic heart diseas e of [place] coronary artery without angina pectoris April 24, [...] 9:56a m Atherosclerotic heart diseas e of [place] coronary artery without angina pectoris July 06, [...] 9:56a m Atherosclerotic heart diseas e of [place] coronary artery without angina pectoris July 06, [...] am Chief Complaint Admit Date CABG X May 16, 2024 12: 37pm LT LEG [...] 9:56a m Atherosclerotic heart diseas e of [place] coronary artery without angina pectoris July 06, 2024 9:56am Carotid artery disease July 06, 2024 9: 56am Diastolic dysfunction July 06, 2024 9:5 6am Mixed hyperlipidemia July 06, 2024 9:56 am Anemia October 02, 2024 11 :28am Type 2 diabetes mellitus with hyperglyce monster October 02, 2024 11:28am Atherosclerotic heart diseas e of [place] coronary artery without angina pectoris October 02, 2024 11:28am Carotid artery disease October 02, 2024 11:28am Diastolic dysfunction October 02, 2024 11:28am Mixed hyperlipidemia October 02, 2024 1 1:28am Chief Complaint Admit Date CABG X 3 May 16, 2024 12: 37pm s/p CABG July 04, 2024 8:56a m S/P (06/14) July 06, 2024 9:56a m INT LABS July 06, 2024 10:34 am S/P CABG July 21, 2024 9:15a m S/P CABG August 21, 2024 9:15 am DIZZINESS September 08, 2024 9:58 am S/P CABG September 20, 2024 9:15 am 3 M FU October 02, 2024 11 :28am S/P CABG October 04, 2024 9: 15am Chief Complaint Admit Date s/p CABG July 04, 2024 8:56a m S/P (06/14) July 06, 2024 9:56a m INT LABS July 06, 2024 10:34 am S/P CABG July 21, 2024 9:15a m S/P CABG August 21, 2024 9:15 am DIZZINESS September 08, 2024 9:58 am S/P CABG September 20, 2024 9:15 am 3 M FU October 02, 2024 11 :28am S/P CABG October 04, 2024 9: 15am Reason for Visit Admit Date Anemia July 06, 2024 9:56a m Atherosclerotic heart diseas e of [place] coronary artery without angina pectoris July 06, 2024 9:56am Carotid artery disease July 06, 2024 9: 56am Diastolic dysfunction July 06, 2024 9:5 6am Mixed hyperlipidemia July 06, 2024 9:56 am Anemia October 02, 2024 11 :28am Type 2 diabetes mellitus with hyperglyce monster October 02, 2024 11:28am Atherosclerotic heart diseas e of [place] coronary artery without angina pectoris October 02, 2024 11:28am Carotid artery disease October 02, 2024 11:28am Diastolic dysfunction October 02, 2024 11:28am Mixed hyperlipidemia October 02, 2024 1 1:28am Family History No Family History Records Found Relationship Condition Age at Onset Recorded Date/T stacie father Chronic obstructive pulmonary disease Unk nown Coronary artery disease Unknown mother Cerebrovascular accident (CVA) Unknown brother Coronary artery disease Unknown Myocardial infarction 63 Advance Directives No Advanced Directives Records Found Advance Directive Response Recorded Date/ Time Advance Directives No January 1:22pm Living Will No January 08, 018 10:29am Power of Radiology Transporter No January 08, 2018 10:29am Advance Directive Response Recorded Date/ Time Advance Directives No January 12:22pm Living Will No January 08, 018 9:29am Power of Radiology Transporter No January 08, 2018 9:29am Advance Directive Response Recorded Date/ Time Name of Medical Power of Radiology Transporter LALA SERRANOEMIGDIOAKIL Verito December 30, 2022 9:00pm Advance Directives No January 12:22pm Living Will Yes December 30 9:00pm Power of Radiology Transporter Yes December 30, 2022 9:00pm Advance Directive Response Recorded Date/ Time Advance Directives No January 1:22pm Living Will Yes December 30 10:00pm Power of Radiology Transporter Yes December 30, 2022 10:00pm Documents on File Type Date Recorded Patient Spool Salvager Expl anation Advance Directives and Livin g Will 05/10/2024 6:30 AM Power of Radiology Transporter 05/10/2024 6:29 AM Date Activated Date Inactivated Comments 05/10/2024 6:16 AM 05/16/2024 2:22 PM Advance Directive Response Recorded Date/ Time Advance Directives on File No April 24, 2024 9:50am Living Will Yes April 24, 2024 9:50am Do you have a Healthcare Pow er of Radiology Transporter? Yes April 24, 2024 9:50am Name of Medical Power of Radiology Transporter Lala (SPOUSE) April 24, 2024 9:50am Advance Directives Yes April 24 9:50am Living Will Yes May 18, 2024 11:12am Do you have a Healthcare Pow er of Radiology Transporter? Yes May 18, 2024 11:12am Name of Medical Power of Radiology Transporter matilde Cooper May 18, 2024 11:12am Documents on File Type Date Recorded Patient Spool Salvager Expl anation Advance Directives and Livin g Will 05/10/2024 6:30 AM Power of Radiology Transporter 05/10/2024 6:29 AM Date Activated Date Inactivated Comments 05/10/2024 6:16 AM 05/16/2024 2:22 PM Advance Directive Response Recorded Date/ Time Advance Directives on File No April 24, 2024 9:50am Living Will Yes April 24, 2024 9:50am Do you have a Healthcare Pow er of Radiology Transporter? Yes April 24, 2024 9:50am Name of Medical Power of Radiology Transporter Lala (SPOUSE) April 24, 2024 9:50am Advance Directives Yes April 24 9:50am Advance Directives on File Yes June 222024 9:36am Living Will Yes July 04, 2024 9 :36am Do you have a Healthcare Pow er of Radiology Transporter? Yes July 04, 2024 9:36am Living Will Yes May 18, 2024 11:12am Do you have a Healthcare Pow er of Radiology Transporter? Yes May 18, 2024 11:12am Name of Medical Power of Radiology Transporter matilde Cooper May 18, 2024 11:12am Advance Directive Response Recorded Date/ Time Advance Directives on File Yes June 222024 9:36am Living Will Yes July 04, 2024 9 :36am Do you have a Healthcare Pow er of Radiology Transporter? Yes July 04, 2024 9:36am Living Will Yes May 18, 2024 11:12am Do you have a Healthcare Pow er of Radiology Transporter? Yes May 18, 2024 11:12am Name of Medical Power of Radiology Transporter matilde Cooper May 18, 2024 11:12am Do you have a Healthcare Pow er of Radiology Transporter? Yes September 08, 2024 10:34am Name of Medical Power of Radiology Transporter friona September 08, 2024 10:34am Advance Directives Yes April 24 9:50am Advance Directive Response Recorded Date/ Time Advance Directives on File Yes June 222024 9:36am Living Will Yes July 04, 2024 9 :36am Do you have a Healthcare Power of Radiology Transporter? Yes July 04, 2024 9:36am Do you have a Healthcare Power of Radiology Transporter? Yes September 08, 2024 10:34am Name of Medical Power of Radiology Transporter friona September 08, 2024 10:34am Advance Directives Yes [...] or prosecute any alcohol or drug abuse patient.[facility] the event this information is protected by the Federal Confidentiality of Alcohol and Drug Abuse Patient Records regulations: The Federal rules restrict any use of the information to criminally investigate or prosecute any alcohol or drug abuse patient.[facility] Reason for Visit (unrecogniz ed section and content) Reason Comments Covid19 Concern asymptomatic exposur e x1 day Reason Comments COVID exposure COVID exposure Reason Comments New Patient Specialty Diagnoses / Procedures Referred By Daria t Referred To Contact Cardiothoracic Surgery Diagnoses CABG Procedures NEW PATIENT Samson Elder MD [address] [place] [address] Phone: tel: fax: Daysi Velasco MD [address] [place] [address], [address] [place] [address] Phone: tel: fax: Referral ID Status Reason Start Date Expiration Date V isits Requested Visits Authorized [id number] Pending Review 04/25/2024 04/25/2025 1 1 Reason Onset Date Comments Surgery Scheduling 04/25/2024 Reason Comments Follow-up Reason Comments Post-op Reason Onset Date Comments Orders 06/23/2024 Reason Onset Date Comments [facility] Outreach 06/27/2024 Reason Onset Date Comments [facility] Outreach 07/24/2024 Care Teams (unrecognized sec tion and content) Telephone Quotation Clerk Relationship Specialty Start Date End Date Fredis Moon Chi [address] [facility] [address] [place], [place] [id number] PCP - General Gerontology 05/23/21 Telephone Quotation Clerk Relationship Specialty Start Date End Date Fredis Moon Chi [address] [facility] [address] [place], [place] [phone] PCP - General Gerontology 05/23/21 Team Status: [...] Care Provider, Referring Provider Active Mi Hernandez VERTICAL BORER, VERTICAL BORER-C Attending Provider Active Team Status: Inactive Member Role Status Dates Dr. Fredis Moon MD Primary Care Provider Active Mi Hernandez VERTICAL BORER, VERTICAL BORER-C Attending Provider, Referring P chapis Active Team Status: Active Member Role Status Dates Dr. Fredis Moon MD Primary Care Provi shania, Attending Provider, Referring Provider Active Telephone Quotation Clerk Relationship Specialty Start Date End Date Kelsey Moon MD [address] [place] [phone] PCP - General Geriatric Medicine 05/10/24 Chante Hong, VITOR Registered Nurse Commutator Presser Manager 05/11/24 Team Status: Active Member Role [...] Provider Active Start: April 17, 2024 Dr. Dayis Monterroso MD Attending Provider Active S tart: [...] Provider Active S tart: May 18, 2024 Telephone Quotation Clerk Relationship Specialty [place] [address] [place] [phone] PCP - General Geriatric Medicine 05/10/24 Chante Hong, VITOR Registered Nurse Commutator Presser Manager 05/11/24 Team Status: Active Member Role [...] Provider Active S tart: June 02, 2024 Telephone Quotation Clerk Relationship Specialty Start Date End Date Kelsey Moon MD [address] [place] [phone] PCP - General Geriatric Medicine 05/10/24 Chante Hong, RN Registered Nurse Commutator Presser Manager 05/11/24 Lilliana Reed I., MACHINE SETTER SHEET METAL Floor And Wall Applier Liquid Licensed Clinical Floor And Wall Applier Liquid 06/08/24 Telephone Quotation Clerk Relationship Specialty Start Date End Date Kelsey Moon MD [address] [place] [phone] PCP - General Geriatric Medicine 05/10/24 Chante Hong, RN Registered Nurse Commutator Presser Manager 05/11/24 Lilliana Reed I., MACHINE SETTER SHEET METAL Floor And Wall Applier Liquid Licensed Clinical Floor And Wall Applier Liquid 06/08/24 Team Status: Inactive Member Role Status [...] 2024 End: July 06, 2024 Mi Hernandez VERTICAL BORER, VERTICAL BORER-C Attending Provider Active Start: July 06, 2024 End: July 06, 2024 Team Status: Active Member Role Status Dates Dr. Fredis Moon MD Primary Care Provider Active Start: July 06, 2024 Dr. Samson Elder MD Attending Provider Active Start: July 06, 2024 Dr. Samson Elder MD Referring Provider Active Start: July 06, 2024 Mi Hernandez VERTICAL BORER, VERTICAL BORER-C Other Provider Active Sta rt: July 06, 2024 Telephone Quotation Clerk Relationship Specialty [place] [address] [place] [phone] PCP - General Geriatric Medicine 05/10/24 Chante Hong, VITOR Registered Nurse Commutator Presser Manager 05/11/24 Lilliana Reed I. [facility] Floor And Wall Applier Liquid Licensed Clinical Floor And Wall Applier Liquid 06/08/24 Team Status: Inactive Member Role Status [...] 2024 End: July 06, 2024 Mi Hernandez VERTICAL BORER, VERTICAL BORER-C Other Provider Active Sta rt: July 06, [...] July 21, 2024 End: July 22, 2024 Telephone Quotation Clerk Relationship Specialty Start Date End Date Kelsey Moon MD [address] [facility] [address] [place] [phone] PCP - General Geriatric Medicine 05/10/24 Chante Hong RN Registered Nurse Commutator Presser Manager 05/11/24 Lilliana Reed I., MACHINE SETTER SHEET METAL Floor And Wall Applier Liquid Licensed Clinical Floor And Wall Applier Liquid 06/08/24 Telephone Quotation Clerk Relationship Specialty Start Date End Date Kelsey Moon MD [address] [facility] [address] [place] [phone] PCP - General Geriatric Medicine 05/10/24 Chante Hong RN Registered Nurse Commutator Presser Manager 05/11/24 Lilliana Reed I., MACHINE SETTER SHEET METAL Floor And Wall Applier Liquid Licensed Clinical Floor And Wall Applier Liquid 06/08/24 08/11/24 Team Status: Active Member Role/Relationship Status Dates Dr. Fredis Moon MD Primary Care Provider Active Team Status: Inactive Member Role/Relationship Status Dates Dr. Fredis Moon MD Primary Care Provider Active Start: April 24, 2024 End: April 24, 2024 Dr. Samson Edler MD Attending Provider Active Start: April 24, [...] 2024 End: July 06, 2024 Mi Hernandez VERTICAL BORER, VERTICAL BORER-C Attending Provider Active Start: July 06, 2024 End: July 06, 2024 Team Status: Inactive Member Role/Relationship Status Dates Dr. Fredis Moon MD Primary Care Provider Active Start: July 06, 2024 End: July 06, 2024 Dr. aSmson Elder MD Attending Provider Active Start: July 06, 2024 End: July 06, 2024 Dr. Samson Elder MD Referring Provider Active Start: July 06, 2024 End: July 06, 2024 Mi Hernandez NP, VERTICAL BORER-C Other Provider Active Sta rt: July 06, [...] End: July 06, 2024 Mi Hernandez NP, VERTICAL BORER-C Attending Provider Active Start: July 06, 2024 [...] End: July 06, 2024 Mi Hernandez NP, VERTICAL BORER-C Other Provider Active Sta rt: July 06, [...] 2024 End: July 06, 2024 Mi Hernandez VERTICAL BORER, VERTICAL BORER-C Attending Provider Active Start: July 06, 2024 [...] End: July 06, 2024 Mi Hernandez NP, VERTICAL BORER-C Other Provider Active Sta rt: July 06, [...] 2024 End: July 06, 2024 Mi Hernandez VERTICAL BORER, VERTICAL BORER-C Attending Provider Active Start: July 06, 2024 [...] 2024 End: July 06, 2024 Mi Hernandez VERTICAL BORER, VERTICAL BORER-C Other Provider Active Sta rt: July 06, [...] 2024 End: October 02, 2024 Wagner Regalado VERTICAL BORER, VERTICAL BORER-C Attending Provider Active S tart: October 02, 2024 End: October 02, 2024 Team Status: Inactive Member Role/Relationship Status Dates Dr. Fredis Moon MD Primary Care Provider Active Start: October 02, 2024 End: October 02, 2024 Dr. Fredis Moon MD Referring Provider Active Start: October 02, 2024 End: October 02, 2024 Wagner Regalado VERTICAL BORER, VERTICAL BORER-C Attending Provider Active S tart: October 02, 2024 End: October 02, 2024 Team Status: Inactive Member Role/Relationship Status Dates Dr. Fredis Moon MD Primary Care Provider Active Start: October 02, 2024 End: October 02, 2024 Dr. Fredis Moon MD Attending Provider Active Start: October 02, 2024 End: October 02, 2024 Dr. Fredis Moon MD Referring Provider Active Start: October 02, 2024 End: October 02, 2024 Team Status: Active Member Role/Relationship Status Dates Dr. Fredis Moon MD Primary Care Provider Active Start: October 02, 2024 Dr. Fredis Moon MD Attending Provider Active Start: October 02, 2024 Team Status: Active Member Role/Relationship Status Dates Dr. Fredis Moon MD Primary Care Provider Active Start: October 04, 2024 Dr. Daysi Velasco MD Attending Provider Active Start: October 04, 2024 Dr. Daysi Velasco MD Referring Provider Active Start: October 04, 2024 Team Status: Inactive Member Role/Relationship Status Dates Dr. Fredis Moon MD Primary Care Provider Active Start: October 02, 2024 End: October 02, 2024 Dr. Fredis Moon MD Attending Provider Active Start: October 02, 2024 End: October 02, 2024 Team Status: Inactive Member [...] End: July 06, 2024 Mi Hernandez NP, VERTICAL BORER-C Attending Provider Active Start: July 06, 2024 [...] End: July 06, 2024 Mi Hernandez NP, VERTICAL BORER-C Other Provider Active Sta rt: July 06, [...] 2024 End: October 02, 2024 Wagner Regalado VERTICAL BORER, VERTICAL BORER-C Attending Provider Active S tart: October 02, 2024 End: October 02, 2024 Team Status: Inactive Member Role/Relationship Status Dates Dr. Fredis Moon MD Primary Care Provider Active Start: October 02, 2024 End: October 02, 2024 Dr. Fredis Moon MD Attending Provider Active Start: October 02, 2024 End: October 02, 2024 Dr. Fredis Moon MD Referring Provider Active Start: October 02, 2024 End: October 02, 2024 Team Status: Inactive Member Role/Relationship Status Dates Dr. Fredis Moon MD Primary Care Provider Active Start: October 02, 2024 End: October 02, 2024 Dr. Fredis Moon MD Attending Provider Active Start: October 02, 2024 End: October 02, 2024 Team Status: Active Member Role/Relationship Status Dates Dr. Fredis Moon MD Primary Care Provider Active Start: October 04, 2024 Dr. Daysi Velasco MD Attending Provider Active Start: October 04, 2024 Dr. Daysi Velasco MD Referring Provider Active Start: October 04, 2024 Team Status: Inactive Member Role/Relationship Status Dates Dr. Fredis Moon MD Primary Care Provider Active Start: October 09, 2024 End: October 09, 2024 Dr. Barron Olson DPM Attending Provider Active Start: October 09, 2024 End: October 09, 2024 Dr. Barron Olson DPM Referring Provider Active Start: October 09, 2024 End: October 09, 2024 Team Status: Active Member Role/Relationship Status Dates Dr. Barron Olson DPM Attending Provider Active Start: October 09, 2024 Team Status: Inactive Member Role/Relationship Status Dates Dr. Barron Olson DPM Attending Provider Active Start: October 09, 2024 End: October 09, 2024 Team Status: Inactive Member Role/Relationship Status Dates Dr. Fredis Moon MD Primary Care Provider Active Start: October 04, 2024 End: October 22, 2024 Dr. Daysi Velasco MD Attending Provider Active Start: October 04, 2024 End: October 22, 2024 Dr. Daysi Velasco MD Referring Provider Active Start: October 04, 2024 End: October 22, 2024 (unrecognized sect ion and content) No Status Records FoundNo Status Records FoundNo Status Records FoundNo Status Records Found INFORMATION SOURCE (unrecogn ized section and content) DATE CREATED AUTHOR 05/31/2021 [facility] DATE CREATED AUTHOR AUTHOR'S ORGANIZ ATION 08/14/2024 [facility] DATE CREATED AUTHOR AUTHOR'S ORGANIZ ATION 10/11/2024 [facility] DATE CREATED AUTHOR AUTHOR'S ORGANIZ ATION 12/31/2024 [facility] Scheduled Active and Recently Administ ered Medications (unrecognized section and content) Medication Order 05/14/2024 05/15/2024 05/16/2024 acetaminophen (Tylenol) tablet 1,000 mg 1,000 mg, Oral, Every 8 hours, First dose on Wed05/10/24 at 1400, Recovery [facility] Unit 0516 (Given - Provider: Jos Haas RN)1412 (Given - Provider: Birdie Kang RN)2110 (Given - Provider: Jos Haas RN) 0557 (Given - Provider: Cedric Kang RN)1451 (Given - Provider: Clara Romero, VITOR)2101 (Given - Provider: Radha Farley, VITOR) 0603 (Given - Provider: Radha Farley RN)1400 [...] Nightly, First dose on Wed05/11/24 at 2100 2110 (Given - Provider: Jos Haas RN) 2044 (Given - Provider: Radha Farley, VITOR) carbidopa-levodopa (Sinemet) 25-100 MG per tablet 1 tablet 1 tablet, Oral, 3 times daily, First dose (after last modification) on Wed05/11/24 at 0900 0834 (Given - Provider: Birdie Kang RN)1412 (Given - Provider: Birdie aKng RN)2115 (Given - Provider: Jos Haas RN) 0842 (Given - Provider: Clara Romero RN)1451 (Given - Provider: Clara Romero RN)2208 (Given - Provider: Radha Farley RN) 0846 (Given - Provider: Clara Romero RN)1400 (Canceled Entry - Provider: Automatic Discharge Provider - Comment: Automatically canceled at discontinue of medication order) chlorhexidine (Hibiclens) 4 % solution Topical, Daily, First dose on Wed05/11/24 at 1400, Recovery [facility] On Unit 1400 (Not Given - Provider: Birdie Kang RN - Reason: Patient/family refused) 2200 (Given - Provider: Radha Farley RN) 1400 [...] 2100 0833 (Given - Provider: Birdie Kang RN)2110 (Given - Provider: Jos Haas RN) 0843 (Given - Provider: Clara Romero RN)2045 (Given - Provider: Radha Farley RN) 0846 [...] times daily with meals, First dose on Wed05/11/24 at 1200, Moderate dose Sliding scale: <150 [...] Haas RN)1153 (Given - Provider: Clara Romero RN)1650 (Given - Provider: Clara Romero RN) 0712 [...] refused) 0843 (Medication Applied - Provider: Clara Romero RN)2043 (Medication Removed - Provider: Radha Farley RN) 0846 (Medication Applied - Provider: Clara Romero, RN)1115 (Due: Medication Removed - Provider: Automatic Discharge Provider - Comment: Time automatically adjusted from order being discontinued) magnesium hydroxide (Milk of Magnesia) 400 MG/5ML suspension 30 mL (CANCELED) 30 mL, Oral, Daily, First dose (after last modification) on 05/13/24 at 0600, Recovery [facility] On Unit 0600 (Not Given - Provider: Jos Haas RN - Reason: Patient/family refused - Comment: diarhea over night patient refused) 0557 (Given - Provider: Cedric Kang, RN) metoprolol tartrate (Lopressor) tablet 25 mg 25 mg, Oral, 2 times daily, First dose (after last modification) on 05/13/24 at 2100, Recovery [facility] On Unit 0833 (Given - Provider: Birdie Kang RN)2110 (Given - Provider: Jos Haas RN) 0842 (Given - Provider: Clara Romero, VITOR)204 (Given - Provider: Radha Farley, VITOR) 0847 (Given - Provider: Clara Romero, VITOR) mupirocin (Bactroban) 2 % ointment (COMPLETED) Nasal, 2 times daily, First dose on Wed05/10/24 at 1800, For 4 days, Recovery [facility] On Unit 0835 (Given - Provider: Birdie Kang, VITOR) pantoprazole (ProtoNix) EC tablet 40 mg 40 mg, Oral, Daily before breakfast, First dose on Wed05/12/24 at 0600, Do not crush, chew, or split. 0516 (Given - Provider: Jos Haas RN) 0557 (Given - Provider: Cedric Kang, VITOR) 0604 (Given - Provider: Radha Farley, VITOR) polyethylene glycol (PEG) 3350 (Miralax) packet 17 g 17 g, Oral, Daily, First dose on Wed05/11/24 at 0900, Recovery & On Unit, Bowel Regimen - for prevention of constipation. 0900 (Not Given - Provider: Biride Kang RN - Reason: Patient/family refused) 0843 (Not Given - Provider: Clara Romero RN - Reason: Order parameters not met) 0848 (Given - Provider: Clara Romero RN) senna-docusate sodium (Senokot-S) 8.6-50 MG tablet 2 [...] Haas RN - Reason: IV Fluids Infusing) 0900 (Not Given - Provider: Clara Romero RN - Reason: Other)2046 (Given - Provider: Radha Farley RN) 0847 (Given - Provider: Clara Romero RN) sodium chloride 0.9% (NS) flush 5-40 mL [...] Haas RN)1200 (Given - Provider: Birdie Kang RN)2100 (Given - Provider: Jos Haas RN) 0600 [...] sedation for opioid reversal - MUST notify compliance and control analyst provider immediately after first dose, may give [...] Every 8 hours PRN, hypokalemia, Starting on 05/10/24 at 1221, Recovery & On Unit, For [...] 3 times daily PRN, hypokalemia, Starting on 05/10/24 at 1221, Recovery & On Unit, For [...] mL, IntraVENous, PRN, line care, Starting on 05/10/24 at 1221, Recovery & On Unit, After [...] BE BASED ON THE PRIMARY CLINICAL RECORDS. [employer] provides no warranty or guarantee of the accuracy or completeness of information in this document.
[2025-01-02 01:10] LABS: Xtra Tube Kwok EXTRA TUBE
== END | disposition home or self-care (01) ==
LOC: POLAB3 16:49
PROVIDERS: Nurse Practitioner Gerontology; PCP Family Medicine Geriatric Medicine; Visit Provider Family Medicine Geriatric Medicine
DX: E78.00 Pure hypercholesterolemia, unspecified (principal); I10 Essential (primary) hypertension; R79.82 Elevated C-reactive protein (CRP); R70.0 Elevated erythrocyte sedimentation rate; T14.8XXA Other injury of unspecified body region, initial encounter
CPT/HCPCS: 36415; 80048; 80061; 80076; 84550; 85025; 85652; 86140; 87070; 87075; 87077; 87102; 87186; 87205; 87206; 87640

== ENCOUNTER → 2025-01-05 | Outpatient (CLI) | payer MEDICARE, OTHER, SELFPAY ==
[2024-09-29 08:14] VITALS: BMI 33.5
--- NOTE | 2025-01-05 09:15 | MRI_ITS ---
PROCEDURE: UPPER EXT NO JOINT W/WO CONT 01/05/2025 REASON FOR EXAM: SOFT TISSUE MASS TECHNIQUE: Procedure Code: [id number] Modality: MR Procedure: UPPER EXT NO JOINT W/WO CONT CONTRAST: 18 cc Clariscan COMPARISON: None FINDINGS: There is a subcutaneous lesion at the posterior aspect, proximal 4th of the ulna, measuring 2.6 by 0.9 by 1.5 cm with internal debris and heterogeneous postcontrast which includes adjacent skin thickening overall measuring 5.7 cm in length. Within the dominant collection, there is an internal 0.9 by 0.6 cm component with foreign body not excluded. There is normal marrow signal in the included distal humerus, radius, and ulna. The underlying muscular structures appear intact. MRI/Upper Ext No Joint W/WO Cont IMPRESSION: There is a subcutaneous lesion at the posterior aspect, proximal 4th of the uln a, measuring 2.6 by 0.9 by 1.5 cm with internal debris and heterogeneous postcontrast which includes adjacent skin thickening o verall measuring 5.7 cm in length. Within the dominant collection, there is an internal 0.9 by 0.6 cm component wi th foreign body not excluded. Reading Location: [facility]
--- NOTE | 2025-01-05 11:09 | VDLE_ITS ---
Reason For Study Reason For Study: LLE Swelling RIGHT LEFT CFV is compressible, spontaneous, phasic, competent GSV is normal. and demonstrates normal augmentation. CFV is compressible, spontaneous, phasic, competent, Procedure and demonstrates normal augmentation. This is a venous duplex using B-mode, color flow and FV is compressible, spontaneous, phasic, competent spectral Doppler. and demonstrates normal augmentation. Exam performed in department. POP V is compressible, spontaneous, phasic, competent The exam was diagnostic. and demonstrates normal augmentation. A preliminary report was called and/or faxed to T/[facility] Trunk is compressible. Af[place] office. PTV is compressible. LT PerV is compressible. VL/Venous Duplex US, Unilateral Interpretation Summary Deep veins of the left lower extremity are patent and compressible segmentally. There is no evidence of left lower extremity deep vein thrombosis. Valvular competence appears intact within the p roximal deep venous system on the left . The left great saphenous vein appears patent and compressible segmentally. The right common femoral vein is patent and compressible . Ordering Physician: Fredis Moon Chi Referring Physician: Barron Olson Chi Performed By: Td Walsh, RVT
== END | disposition home or self-care (01) ==
PROVIDERS: PCP Family Medicine Geriatric Medicine; Referring Provider Podiatrist; Visit Provider Podiatrist
DX: R22.31 Localized swelling, mass and lump, right upper limb (principal); M79.631 Pain in right forearm
CPT/HCPCS: 73220; 93971; A9575; A4216

== ENCOUNTER → 2025-01-17 | Outpatient (CLI) | payer MEDICARE, OTHER, SELFPAY ==
[2024-09-29 08:14] VITALS: BMI 33.5
--- NOTE | 2025-01-17 10:20 | MRI_ITS ---
PROCEDURE: LOWER EXT JOINT ONLY W/WO CONT 01/17/2025 REASON FOR EXAM: CELLULITIS LT KNEE TECHNIQUE: Procedure Code: [id number] Modality: MR Procedure: LOWER EXT JOINT ONLY W/WO CONT CONTRAST: 18 cc Clariscan, T1, T2, PD, postcontrast T1 fat-sat images of the left knee were obtained without and with contrast. Motion is noted. COMPARISON: None FINDINGS: Marrow: There is no bony contusion or osteochondral fracture. Cruciate ligaments: The anterior cruciate ligament shows increased T2 signal and attenuation without laxity, grade 2 sprain, versus mucoid degeneration. The posterior cruciate appears intact. Collateral ligaments: The medial collateral ligament appears intact. The lateral collateral ligament complex appears intact. Extensor compartment. There is severe thickening and attenuation in the distal quadriceps tendon without full-thickness tear or retraction. The patellar tendon appears intact with mild tendinopathy of the proximal portion. Menisci: There is a horizontal tear in the body of the medial meniscus which extends to the tibial surface. There is a small vertical tear in the body of the lateral meniscus which extends to the femoral and tibial surface. Effusion: There is a trace joint effusion. There is no significant Anderson's cyst. There is subcutaneous edema in the medial, lateral, and posterior soft tissues with no organized or drainable collection. Cartilage: There is moderate chondromalacia in the medial and lateral patellar facets. A fissure is noted in the central portion of the medial patellar facet. There is severe chondromalacia in the medial compartment. There are no suspicious enhancing lesions. MRI/Lower Ext Joint Only W/WO Cont IMPRESSION: The anterior cruciate ligament shows increased T2 signal and attenuation withou t laxity, grade 2 sprain, versus mucoid degeneration. There is severe thickening and attenuation in the distal quadriceps tendon with out full-thickness tear or retraction. The patellar tendon appears intact with mild tendinopathy of the proximal porti on. There is a horizontal tear in the body of the medial meniscus which extends to the tibial surface. There is a small vertical tear in the body of the lateral meniscus which extend s to the femoral and tibial surface. There is a trace joint effusion. There is subcutaneous edema in the medial, lateral, and posterior soft tissues with no organized or drainable collection. The differential includes cellulitis, and venous stasis. There is moderate chondromalacia in the medial and lateral patellar facets. A fissure is noted in the central portion of the medial patellar facet. There is severe chondromalacia in the medial compartment. Reading Location: [facility]
== END | disposition home or self-care (01) ==
LOC: OPMRI 10:12
PROVIDERS: PCP Family Medicine Geriatric Medicine; Referring Provider Family Medicine Geriatric Medicine; Visit Provider Family Medicine Geriatric Medicine
DX: L03.116 Cellulitis of left lower limb (principal)
CPT/HCPCS: 73723; A9575

== ENCOUNTER 2025-01-28 09:00 | Emergency (ER) | payer MEDICARE, OTHER, SELFPAY ==
[2024-09-29 08:14] VITALS: BMI 33.5
[2025-01-28 09:01] VITALS: BP 128/62; PULSE 65; RESP 18; TEMP 36.8; O2SAT 100
--- NOTE | 2025-01-28 09:06 | ED.VIS.FALL ---
HPI HPI - Fall History of Present Illness Chief Complaint: Fall Informant: patient Occured/Mechanism Occurred: Today Mechanism/Context: Yes same level fall Narrative: Patient lost his balance and fell Usually ambulates: Walker Pain/Injury Location: Left shoulder Pain Location: upper extremity Quality of Pain: Aching Worsened by: Movement Relieved by: Nothing Narrative Narrative: Patient presents after a fall that occurred this morning. Patient states he lost his balance. Patient states he fell onto his left shoulder and left upper extremity. Patient states he normally walks with a walker but was not using his walker this morning. Patient states he fell backwards. Patient thinks he might of hit his head but did not lose consciousness. Patient admits to some tingling into his left upper extremity. Patient denies any weakness. Patient states he has a history of neuropathy and the tingling is similar to his neuropathy. Patient denies any other injuries. Patient describes his pain as aching. Patient states it is worse with movement of his shoulder. Tetanus Immunization: Unknown [facility] Medical History Carotid artery disease Malignant neoplasm of prostate Mixed hyperlipidemia Hepatitis B GERD (gastroesophageal reflux disease) Neuropathy Essential hypertension Syncope Wide-complex tachycardia Premature ventricular contraction Premature atrial contractions Sinus bradycardia Atherosclerotic heart disease of resighini coronary artery without angina pectoris Diabetes type 2, controlled Normal pressure hydrocephalus Obesity Asymptomatic PVCs Dyslipidemia HTN (hypertension) Sleep apnea, obstructive Home Medications ?Medication ?Instructions ?Recorded ?Last Taken ?Type empagliflozin 25 mg tablet 25 mg PO DAILY 12/20/17 01/27/25 History (Jardiance) carbidopa 25 mg-levodopa 100 mg 1 tab PO TID Parkinsons 01/12/20 01/27/25 History tablet metoprolol tartrate 25 mg tablet 12.5 mg (1/2 x 25 mg) PO BID 30 06/06/24 01/27/25 Rx days #30 tabs insulin glargine 100 35 - 45 unit subcut QAM diabetes 07/06/24 01/27/25 History unit-lixisenatide 33 mcg/mL subcutaneous pen (Soliqua 100/33) meclizine 12.5 mg tablet 12.5 mg PO TID PRN dizziness #10 09/08/24 Unknown Rx tabs aspirin 81 mg tablet,delayed 81 mg PO QDAY blood thinner 10/02/24 01/27/25 History release (Adult Aspirin Regimen) metformin 1,000 mg tablet 1,000 mg PO BID 10/02/24 01/27/25 History propylene glycol 0.6 % eye drops 1 drp ophthalmic (eye) QDAY PRN 10/02/24 Unknown History (Lubricant Eye (propylene glycol)) dry eye(s) vibegron 75 mg tablet (Gemtesa) 75 mg PO DAILY 01/24/25 01/27/25 History atorvastatin 40 mg tablet (Lipitor) 40 mg PO DAILY 01/28/25 01/27/25 History hydrocodone-acetaminophen 5-325mg 1 tab PO Q6H PRN PRN Pain 3 days 01/28/25 Unknown Rx 5mg-325mg #10 TABLETS Allergy/AdvReac Type Severity Reaction Status Date / Time rosuvastatin (From Crestor) AdvReac Severe Flu like Verified 01/28/25 09:03 symptoms adhesive tape AdvReac skin tears Verified 01/28/25 09:03 Family History (System 10/12/24 @ 06:43 by Chrissy Morris) Father COPD (chronic obstructive pulmonary disease) CAD (coronary artery disease) Mother CVA (cerebral vascular accident) Brother CAD (coronary artery disease) Myocardial infarction, Onset Age: 61 Surgical History Status post three vessel coronary artery bypass History of prostatectomy History of cataract surgery History of cholecystectomy History of tonsillectomy Social History household members: spouse Smoking Status: Former smoker alcohol intake: never substance use type: does not use ROS ROS ED Constitutional Constitutional ED: Denies chills or fever(s) Eyes Eyes: Denies blurry vision or change in vision ENT ENT ED: Denies rhinorrhea or sore throat Cardiovascular Cardiovascular: Denies chest pain or palpitations Respiratory/Chest Respiratory/Chest: Denies cough or dyspnea Gastrointestinal Gastrointestinal: Denies nausea or vomiting Genitourinary Genitourinary ED: Denies dysuria or hematuria Musculoskeletal Musculoskeletal: Denies back pain or neck pain Integumentary Denies abscess or rash Neurologic Neurologic: Denies headache(s) or weakness Allergic/Immunologic Allergic/Immunologic ED: Denies mouth swelling or urticaria EXAM Physical Exam Const Vital Signs: 01/28/25 09:01 01/28/25 09:22 Temperature 98.2 F Temperature Source Oral Pulse Rate 65 Respiratory Rate 18 Respiratory Effort Normal Non-Labored Respiratory Depth Normal Respiratory Pattern Normal Blood Pressure 128/62 H Blood Pressure Mean 84 Pulse Ox 100 Oxygen Delivery Method Room Air Room Air Positive well nourished and well developed General Appearance ED: well developed and NAD HEENT Reports normocephalic atraumatic Neck full ROM and supple Extremity Extremity Narrative: There is tenderness over the left shoulder area. There is no obvious deformity noted. Range of motion was limited in all motions of the left shoulder secondary to pain. Strength is 5/5 in the radial, median, and ulnar areas. Sensation was intact to light touch in the radial, median, and ulnar areas. Radial pulses are equal bilaterally. There are skin tears noted over the lateral aspect of the left distal arm and mid forearm. There is mild bleeding noted. There are no foreign bodies noted. Neuro oriented x3, CN's II-XII intact bilaterally, moves all extremities, no focal motor deficits and no sensory deficits noted [place] Coma Scale: document GCS findings Spontaneous Obeys Commands Oriented 15 Sensorium / Orientation: alert Motor Exam: strength 5/5 throughout Psych mental status grossly normal and thought process normal MDM MDM MDM Narrative Medical decision making narrative: Differential diagnosis includes fracture, sprain, and contusion. X-rays of the left shoulder will be obtained to assess for fracture. History & Record Review Additional record(s) reviewed:: Prior outpatient record, Prior ED visit and Prior labs Radiography Diagnostic Testing: Clinical Impression(s) from Imaging Studies Shoulder X-Ray 01/28/25 09:24 IMPRESSION: 1. No acute fracture or dislocation. 2. Degenerative osteoarthrosis. Reading Location: [facility] X-rays of the left shoulder were obtained. There are 4 views. On my independent interpretation, there is no acute fracture or dislocation noted. There are degenerative changes noted. Radiologist also interpreted the x-rays and agrees. Treatment and Re-Evaluation Narrative: Patient was given a tetanus booster. The skin tears were cleaned and dressed with bacitracin dressing. Patient was advised of his findings. Patient states he has been taking Tylenol with some relief of his pain. Patient was instructed to continue this. Patient was given a prescription for a short course of [place]. Patient was given his first dose here. Patient was instructed to follow-up with his primary care physician in 5 to 7 days. Patient was instructed to use ice to the area. Patient was instructed to return if worse in any way. Patient understood and was agreeable with the plan. All questions were answered. Discharge Plan Triage Chief Complaint: Fall ED Provider: Ernie Monroe Dx/Rx/DC Orders Clinical Impression: Contusion of left shoulder, Fall Instructions: ED Shoulder Bruise Prescriptions: New hydrocodone-acetaminophen 5-325 mg tablet 1 tab PO Q6H PRN PRN (Reason: Pain) 3 Days Qty: 10 0RF No Action Jardiance 25 mg tablet 25 mg PO DAILY carbidopa-levodopa 25-100 mg tablet 1 tab PO TID Soliqua 100/33 100 unit-33 mcg/mL insulin pen 35 - 45 unit subcut QAM metformin 1,000 mg tablet 1,000 mg PO BID Lubricant Eye (propyl glycol) 0.6 % drops 1 drp ophthalmic (eye) QDAY PRN (Reason: dry eye(s)) aspirin [Adult Aspirin Regimen] 81 mg tablet,delayed release (DR/EC) 81 mg PO QDAY Gemtesa 75 mg tablet 75 mg PO DAILY atorvastatin [Lipitor] 40 mg tablet 40 mg PO DAILY metoprolol tartrate 25 mg Tablet 12.5 mg PO BID 30 Days Qty: 30 0RF meclizine 12.5 mg tablet 12.5 mg PO TID PRN (Reason: dizziness) Qty: 10 0RF Primary Care Provider: Fredis Moon Chi Referrals: Fredis Moon Chi, MD [Primary Care Provider, Geriatrics] - 5-7 Days Print Language: [place] Citizen Disposition Disposition: Home, Self Care
[2025-01-28 09:22] VITALS: BMI 31.2
--- NOTE | 2025-01-28 09:24 | RAD_ITS ---
PROCEDURE: SHOULDER MIN 2 VIEWS 01/28/2025 REASON FOR EXAM: INJURY/PAIN TECHNIQUE: Procedure Code: RADSH Modality: DX Procedure: SHOULDER MIN 2 VIEWS Laterality: Left COMPARISON: None. FINDINGS: BONES: No acute fracture or focal osseous lesion. JOINTS: No dislocation. Degenerative changes of the glenohumeral and acromioclavicular joints. SOFT TISSUES: The soft tissues are unremarkable. RAD/Shoulder min 2 Views IMPRESSION: 1. No acute fracture or dislocation. 2. Degenerative osteoarthrosis. Reading Location: [id number]
[2025-01-28] MEDS: HYDROcodone Bitartrate/Apap 5/325 Tablet PO (10:47)
[2025-01-28 11:00] VITALS: BP 157/72; PULSE 67; RESP 16; TEMP 36.6; O2SAT 100
== END 2025-01-28 11:02 | disposition home or self-care (01) ==
PROVIDERS: Emergency Provider Emergency Medicine; PCP Family Medicine Geriatric Medicine; Visit Provider Emergency Medicine
DX: S40.012A Contusion of left shoulder, initial encounter (principal); E11.40 Type 2 diabetes mellitus with diabetic neuropathy, unspecified; Z79.4 Long term (current) use of insulin; I25.10 Atherosclerotic heart disease of native coronary artery without angina pectoris; I10 Essential (primary) hypertension; E78.2 Mixed hyperlipidemia; K21.9 Gastro-esophageal reflux disease without esophagitis; G47.33 Obstructive sleep apnea (adult) (pediatric); Z79.82 Long term (current) use of aspirin; Z79.899 Other long term (current) drug therapy; Z79.84 Long term (current) use of oral hypoglycemic drugs; Z23 Encounter for immunization; W18.30XA Fall on same level, unspecified, initial encounter; Z87.891 Personal history of nicotine dependence; Z95.1 Presence of aortocoronary bypass graft
CPT/HCPCS: 73030; 90471; 90715; 99283

== ENCOUNTER → 2025-01-30 | Outpatient (CLI) | payer MEDICARE, OTHER, SELFPAY ==
[2024-09-29 08:14] VITALS: BMI 33.5
[2025-01-30 21:07] LABS: Staph aureus DNA By PCR NEGATIVE (Negative)
== END | disposition home or self-care (01) ==
LOC: POLAB3 17:17
PROVIDERS: PCP Family Medicine Geriatric Medicine; Visit Provider Family Medicine Geriatric Medicine
DX: M79.89 Other specified soft tissue disorders (principal)
CPT/HCPCS: 87070; 87075; 87077; 87186; 87205; 87640

== ENCOUNTER → 2025-01-31 | Outpatient (CLI) | payer MEDICARE, OTHER, SELFPAY ==
[2024-09-29 08:14] VITALS: BMI 33.5
--- NOTE | 2025-01-31 14:55 | VDUE_ITS ---
Reason For Study Reason For Study: Swelling Right Proximal Left Proximal Right subclavian vein is spontaneous, widely patent, Left jugular vein is spontaneous, widely patent, phasic, with no intraluminal echogenicity noted. phasic, with no intraluminal echogenicity noted. Left subclavian vein is spontaneous, widely patent, phasic, with no intraluminal echogenicity noted. Left Arm Left axillary vein is spontaneous, patent, phasic, competent, compressible and demonstrates augmentation. Left brachial vein is compressible. Left cephalic vein is compressible. Left basilic vein is compressible. Left Lower Arm Left radial vein is compressible. Left ulnar vein is compressible. Procedure This was a unilateral left upper extremity venous doppler examination. Preliminary report faxed to Fredis Moon MD. VL/Venous Duplex US, Unilateral Interpretation Summary Deep veins of the left upper extremity are patent and compressible segmentally. There is no evidence of deep vein thrombosis. Superficial veins of the left upper extremity are patent and compressible segme ntally. There is no evidence of superficial vein thrombosis. Ordering Physician: Fredis Moon Chi Referring Physician: Fredis Moon Chi Performed By: Nancy Carlson RVT ???
[2025-01-31 15:49] LABS: PSA,Total- Diagnostic < 0.02 ng/mL (0.00-4.00)
== END | disposition home or self-care (01) ==
PROVIDERS: PCP Family Medicine Geriatric Medicine; Referring Provider Family Medicine Geriatric Medicine; Visit Provider Family Medicine Geriatric Medicine
DX: C61 Malignant neoplasm of prostate (principal); M79.89 Other specified soft tissue disorders
CPT/HCPCS: 36415; 84153; 93971